=== PATIENT | female | born 1955 | race Caucasian/White ===

== ENCOUNTER → 2017-11-19 14:38 | Outpatient (CLI) | payer MEDICARE, MEDICAID, SELFPAY ==
--- NOTE | 2017-11-19 14:55 | RAD_ITS ---
STUDY: X-RAY CHEST REASON FOR EXAM: Female, 62 years old. Cough: TECHNIQUE: 2 view COMPARISON: None. FINDINGS: No acute findings in the lungs. The heart is normal. There are degenerative changes of the thoracic spine.. Normal visualized ribs, clavicles, and shoulders. There is no demonstrated abnormality of the visualized soft tissue structures of the upper abdomen. RAD/Chest PA and Lateral IMPRESSION: No acute findings in the lungs Electronically Signed: Ricky Goodwin MD at 3:24 EDT Tel , Service support ,
== END ==
PROVIDERS: Family Provider Family Medicine; PCP Family Medicine; Referring Provider Family Medicine; Visit Provider Family Medicine
DX: R05 Cough (principal)
CPT/HCPCS: 71046

== ENCOUNTER 2018-01-05 22:04 | Inpatient (IN) | payer MEDICARE, MEDICAID, SELFPAY ==
[2018-01-05 22:06] VITALS: BP 124/85; PULSE 104; RESP 18; TEMP 36.8; O2SAT 97; BMI 33.5
--- NOTE | 2018-01-05 22:07 | ED.RN ---
CALLED FOR EKG, PULLED OLD EKGS FOR
--- NOTE | 2018-01-05 22:16 | EKG12_ITS ---
Test Reason : CHEST PAIN Blood Pressure : / mmHG Vent. Rate : 092 BPM Atrial Rate : 092 BPM P-R Int : 176 ms QRS Dur : 098 ms QT Int : 384 ms P-R-T Axes : 053 -05 045 degrees QTc Int : 474 ms Normal sinus rhythm Low voltage QRS Borderline ECG Confirmed by TERRI WRIGHT, KATARINA ([id number]), editorial assistant LATRICE AMES ([id number] on 01/07/2018 9:20:27 AM Referred By: KEVIN Confirmed By:KATARINA MURRAY MD
--- NOTE | 2018-01-05 22:20 | RAD_ITS ---
STUDY: X-RAY CHEST REASON FOR EXAM: Female, 62 years old. Chest pain. TECHNIQUE: Portable chest. COMPARISON: 11/19/2017. FINDINGS: The lungs are clear and expanded. There is no demonstrated pleural abnormality. Normal size heart. Normal mediastinum and rayna. Normal visualized pulmonary arteries. Normal visualized aortic arch and descending thoracic aorta. There are degenerative changes of the right glenohumeral joint and distal clavicle consistent with remote trauma. Thoracic spondylosis is noted. Soft tissues are unremarkable. RAD/Chest 1 View (Portable) IMPRESSION: No acute process. Electronically Signed: Fátima Bucio MD at 23:20 EST Tel , Service support ,
[2018-01-05 22:27] VITALS: O2SAT 98
[2018-01-05 22:36] LABS: Absolute Lymphocyte Count 1.99 X10^3/ul (0.83-4.51); Absolute Neutrophil Count 9.2 X10^3/uL (2.0-7.7); Basophil# 0.02 X10^3/uL; Basophil% 0.2 % (0-1); Eosinophil# 0.21 X10^3/uL; Eosinophils% 1.8 % (0-5); Hemoglobin 12.6 g/dl (12.0-15.0); Lymphocyte # 1.99 X10^3/ul (4.0); Lymphocyte % 16.6 % (19-41); Mean Corp Hgb Conc 32.3 g/gl (32-36); Mean Corpuscular Hgb 28.5 pg (27.0-32.0); Mean Corpuscular Volume 88.2 fL (81-99); Mean Platelet Vol. 9.3 fl (6.2-12.0); Monocyte# 0.51 X10^3/uL; Monocyte% 4.3 % (0-10); Neutrophil # 9.22 X10^3/uL (2.7-7.7); Neutrophil % 76.9 % (47-70); Platelet Count 295 K/mm3 (150-450); RBC Distribution Width CV 12.5 % (11.6-14.6); RBC Distribution Width SD 40.3 fl (35.1-43.9); Red Blood Count 4.42 M/mm3 (4.2-5.4)
[2018-01-05 22:37] LABS: POSITIVE COUNT NO; POSITIVE DIFFERENTIAL NO; POSITIVE MORPHOLOGY NO
[2018-01-05 22:52] LABS: Anion Gap 9 (5-15); BUN 30 mg/dL (7-18); Calcium,Total 9.3 mg/dL (8.5-10.1); Chloride 104 mmol/L (98-107); EST Glomerular Filtration Rate 37 mL/min (>60); Est Glom Filt Rate - Afr Amer 45 mL/min (>60); Estimated Creatinine Clearance 32.72 ml/min; Glucose 201 mg/dL (74-106); Potassium 3.9 mmol/L (3.5-5.1); Sodium Level 138 mmol/L (136-145)
[2018-01-05] MEDS: Aspirin 81 MG TAB.CHEW 324 MG PO (22:52)
--- NOTE | 2018-01-05 22:53 | ED.RN ---
lab called with critical lab results. Troponin level 0.813. Dr. Lopez made aware
[2018-01-05] MEDS: 0.9% Normal Saline 1,000 ML 999 ML IV (22:57)
--- NOTE | 2018-01-05 23:00 | ED.RN ---
NITRO HELD AT THIS TIME D/T LOW BP. NS FLUID STARTED INFUSING AT THIS TIME. ANOTHER EKG OBTAINED. PHYSICIAN AT BEDSIDE
[2018-01-05 23:05] VITALS: BP 106/62; PULSE 94; RESP 23; O2SAT 98
[2018-01-05] MEDS: fentaNYL 100 MCG/2 ML Ampul 25 MCG IV (23:06)
[2018-01-05] MEDS: Enoxaparin 100 MG/ML Syringe 90 MG SC (23:17)
[2018-01-05] MEDS: Clopidogrel Bisulfate 300 MG Tablet PO (23:17)
--- NOTE | 2018-01-05 23:34 | ED.VISSUMM ---
- ER Visit Summary Date of Service: 01/05/18 Chief Complaint: Chest pain History of Present Illness: The patient is a 62 F who presents with chest pain. It began about 4 hours ago. She states that about noon she developed vertigo. She does have a prior history of vertigo. She felt dizzy and nauseated. She took Zofran and meclizine and fell asleep. She woke up at about 6:30 PM and had chest pressure. She rates this as 7 out of 10. She states it feels like someone is sitting on me. She reports nausea shortness of breath and mild diaphoresis. No fevers. She has had a recent chest infection. She complains of shortness of breath cough and occasional sputum. She has had 2 normal x-rays. She was however still started on antibiotics. No vomiting. No diarrhea. Physical Examination: Heart rate 104 vitals otherwise normal Moist mucous membranes Heart regular rhythm slightly tachycardic Lungs are clear without rales rhonchi wheezes Abdomen soft Symmetric palpable radial pulses Alert Skin warm and dry at the time of initial exam Test Results: EKG shows sinus rhythm at a rate of 92. There is slightly increased amplitude of T waves from prior EKG but did not have a morphology consistent with de bryant waves. I do not appreciate any ST segment changes. Repeat EKG shows some DE depression in lead II no other acute changes. No reciprocal changes. Chest x-ray shows no acute process. Labs notable for white blood cell count 12.0. Creatinine 1.50. Troponin 0 0.813. Emergency Department Course and Treatment: Patient was given aspirin. Sublingual nitroglycerin was ordered. However prior to administration patient developed diaphoresis and hypotension with a systolic blood pressure of about 90. We held on nitroglycerin. Repeat EKG as above. I spoke to Dr. Hayes. We also administered oral Plavix and subcutaneous Lovenox. Patient will be admitted to the ICU. She was advised to notify anyone of any new or worsening symptoms. Discussed with hospitalist and admitted. Treatment Plan: [] Disposition: Admit Impression: Acute coronary syndrome This note was generated with [employer] dictation software. It may contain incorrect words, spelling, and punctuation that were not noted in review of the chart prior to signing ED Disposition - Plan for ED Patient: Chief Complaint: Chest Pain Referrals: Doug Florence MD [Primary Care Provider] -
--- NOTE | 2018-01-05 23:37 | ED.DCSUM_ITS ---
- ER Visit Summary Date of Service: 01/05/18 Chief Complaint: Chest pain History of Present Illness: The patient is a 62 F who presents with chest pain. It began about 4 hours ago. She states that about noon she developed vertigo. She does have a prior history of vertigo. She felt dizzy and nauseated. She took Zofran and meclizine and fell asleep. She woke up at about 6:30 PM and had chest pressure. She rates this as 7 out of 10. She states it feels like someone is sitting on me. She reports nausea shortness of breath and mild diaphoresis. No fevers. She has had a recent chest infection. She complains of shortness of breath cough and occasional sputum. She has had 2 normal x- rays. She was however still started on antibiotics. No vomiting. No diarrhea. Physical Examination: Heart rate 104 vitals otherwise normal Moist mucous membranes Heart regular rhythm slightly tachycardic Lungs are clear without rales rhonchi wheezes Abdomen soft Symmetric palpable radial pulses Alert Skin warm and dry at the time of initial exam Test Results: EKG shows sinus rhythm at a rate of 92. There is slightly increased amplitude of T waves from prior EKG but did not have a morphology consistent with de bryant waves. I do not appreciate any ST segment changes. Repeat EKG shows some SD depression in lead II no other acute changes. No reciprocal changes. Chest x-ray shows no acute process. Labs notable for white blood cell count 12.0. Creatinine 1.50. Troponin 0 0.813. Emergency Department Course and Treatment: Patient was given aspirin. Sublingual nitroglycerin was ordered. However prior to administration patient developed diaphoresis and hypotension with a systolic blood pressure of about 90. We held on nitroglycerin. Repeat EKG as above. I spoke to Dr. Hayes. We also administered oral Plavix and subcutaneous Lovenox. Patient will be admitted to the ICU. She was advised to notify anyone of any new or worsening symptoms. Discussed with hospitalist and admitted. Treatment Plan: [] Disposition: Admit Impression: Acute coronary syndrome This note was generated with [employer] dictation software. It may contain incorrect words, spelling, and punctuation that were not noted in review of the chart prior to signing ED Disposition - Plan for ED Patient: Chief Complaint: Chest Pain Referrals: Doug Florence MD [Primary Care Provider] -
--- NOTE | 2018-01-05 23:39 | PCM.HP.STD ---
Problem List (1) ACS (acute coronary syndrome) Status: Acute (2) NSTEMI (non-ST elevated myocardial infarction) Status: Suspected (3) Diabetes mellitus, type II Status: Chronic Qualifiers: Diabetes mellitus rn long term care insulin use: without rn long term care use Diabetes mellitus complication status: with unspecified complications Qualified Code(s): E11.8 - Type 2 diabetes mellitus with unspecified complications (4) HTN (hypertension) Status: Chronic Qualifiers: Hypertension type: essential hypertension Qualified Code(s): I10 - Essential (primary) hypertension (5) HLD (hyperlipidemia) Status: Chronic Qualifiers: Hyperlipidemia type: unspecified Qualified Code(s): E78.5 - Hyperlipidemia, unspecified (6) Obesity (BMI 30.0-34.9) Status: Chronic History of Present Illness Date of Admission: 01/05/18 Chief Complaint: Chest pressure The patient is a 62 y/o F w/ PMHx: Diabetes mellitus type II, HTN, HLD Obesity, BPPV who presents to the [facility] ED on 01/05/18 with history of onset mild vertigo at noon, taking zofran and meclizine w/ nap following, awakening secondary to onset L sided chest pressure, described as someone sitting on her chest, constant since onset, rated 8/10 pain with no radiation with associated nausea, diaphoresis and dyspnea prompting ED transition. In the ED she noted chest discomfort at 6/10. In the ED work-up included T 98.3, heart rate 104, BP 03/07/1984 however patient did become hypotensive with systolic under 100 while in the emergency room and IV fluid bolus was administered, respiratory rate 18, 97% on room air, CBC with WC 12, hemoglobin 12.6, platelet 295 with left shift, BMP with BUN/creatinine 30/1.50, glucose 201, troponin 0.813, chest x-ray unremarkable, EKG initially with sinus rhythm with heart rate 92 with slight increase of T wave amplitude from prior with repeat EKG with some PA depression in lead II otherwise no acute findings and no reciprocal changes. In the ED patient administered normal saline, fentanyl, therapeutic Lovenox, Plavix load, aspirin 324 mg p.o. x1. Cardiology consulted and discussed patient status given concern for acute coronary syndrome and suspected NSTEMI. Past Medical History Past Medical History (Chronic Problems): Chronic Problems Diabetes mellitus, type II (Chronic) HTN (hypertension) (Chronic) HLD (hyperlipidemia) (Chronic) Obesity (BMI 30.0-34.9) (Chronic) Allergies codeine Allergy (Verified 01/05/18 22:05) Itching Home Medications: Ambulatory Orders Medication Instructions Recorded Oxycodone HCl/Acetaminophen 1 - 2 tablet PO Q6H PRN PRN 08/15/14 [Percocet 10-325 mg Tablet] Surgical History: - - Partial hysterectomy, tonsillectomy, right oophorectomy. Psychiatric History: No pertinent psych hx CARDIOLOGY TECH History: - - R oopherectomy s/p ovarian mass. Lives: Spouse/ Significant Other Smoking Status: Former smoker Tobacco Use: Non-smoker Alcohol: None Drugs: None - *Family History Maternal History Items: - - Patient denies any marked paternal or maternal family history including heart disease, diabetes, cancer. Paternal History Items: - - Patient denies any marked paternal or maternal family history including heart disease, diabetes, cancer. Review of Systems Constitutional: Reports: Malaise, Weakness, Fatigue. Denies: Chills, Fever, Weight Change HEENT: Denies: Head Aches, Sinus Congestion, Sinus Drainage Cardiovascular: Reports: Chest Pain, Chest Pressure, Heaviness, Light Headedness. Denies: Chest Tightness, Edema, Orthopnea, Palpitations, Syncope Respiratory: Reports: Shortness of Breath. Denies: Cough, Shortness of breath at rest, Shortness of breath upon exertion, Sputum production Gastrointestinal: Reports: Nausea. Denies: Abdominal Pain, Vomiting Genitourinary: Denies: Dysuria Musculoskeletal: Reports: Back Pain, Joint Pain. Denies: Joint Tenderness Skin: Denies: Rash, Wounds Neurological: Denies: Numbness, Tingling, Focal weakness Psychiatric: Denies: Anxiety, Depression, Homicidal Ideations, Suicidal Ideations Hematologic/ Lymphatic: Denies: Easy Bruising, Easy Bleeding VTE Information - Inpt Only VTE Present on Admission: No VTE Mechan Device Prophylaxis: SCD's VTE Pharm Prophylaxis ordered?: Yes Patient Problems: Active and Suspected Problems ACS (acute coronary syndrome) (Acute) NSTEMI (non-ST elevated myocardial infarction) (Suspected) Subjective: Seated upright in the ED bed, ongoing L chest pressure, diaphoretic currently. Objective: Physical Examination: General: awake, alert, oriented x 3 and cooperative, seated upright in the ED bed, uncomfortable appearing, diaphoretic. Skin: normal color, turgor, no icterus, cyanosis. HEENT: AT/NC, EOMI, PERRLA, mildly dry MM, no carotid bruits or JVD noted. Lungs: CTA bilaterally, moderate effort, mild decrease BL bases, no rales, ronchi or wheezing. Heart: Mildly tachycardic with regular rhythm; no gallop, rub audible. Abdomen: soft, obese, NTTP, ND, normal BS, no HSM. Extremities: no cyanosis, clubbing, or edema. Neurological: patient awake, alert, oriented x 3; cognitive function intact; pupils equally reactive to light and accomodation; cranial nerves II-XII grossly normal, moving all 4 extremities, no focal deficits, strength moderately to severely globally decreased secondary to acute presentation. Psychiatric: affect appears fatigued, flat, no acute evidence of depressive or anxiety feelings. - Physical Exam Vital Signs Temp Pulse Resp BP Pulse Ox 98.3 F 94 23 H 106/62 98 01/05/18 22:06 01/05/18 23:05 01/05/18 23:05 01/05/18 23:05 01/05/18 23:05 Oxygen Flow Rate (L/min) 2 Oxygen Delivery Method Nasal Cannula Weight: 195 lb 12.328 oz Body Mass Index (BMI) 33.5 Laboratory Tests Past 24 Hrs 01/05/18 01/05/18 22:24 22:24 WBC 12.0 H RBC 4.42 Hgb 12.6 Hct 39.0 MCV 88.2 MCH 28.5 MCHC 32.3 RDW 12.5 RDW Differential 40.3 Plt Count 295 MPV 9.3 Immature Gran % (Auto) 0.200 Neut % (Auto) 76.9 H Lymph % (Auto) 16.6 L Hamilton % (Auto) 4.3 Eos % (Auto) 1.8 Baso % (Auto) 0.2 Absolute Neuts (auto) 9.2 H Absolute Lymphs (auto) 1.99 Total Counted Not Reportable Sodium 138 Potassium 3.9 Chloride 104 Carbon Dioxide 25.0 Anion Gap 9 BUN 30 H Creatinine 1.50 H Estim Creat Clear Calc 32.72 Est GFR (MDRD) Af Amer 45 L Est GFR (MDRD) Non-Af 37 L BUN/Creatinine Ratio 20.0 Glucose 201 H Calcium 9.3 Troponin I 0.813 H* Assessment/Plan All Active Problems ACS (acute coronary syndrome) (Acute) The patient is a 62 y/o F w/ PMHx: Diabetes mellitus type II, HTN, HLD Obesity, BPPV who presents to the [facility] ED on 01/05/18 with history of onset mild vertigo at noon, taking zofran and meclizine w/ nap following, awakening secondary to onset L sided chest pressure, described as someone sitting on her chest, constant since onset, rated 8/10 pain with no radiation with associated nausea, diaphoresis and dyspnea prompting ED transition. (1) Chest Pain w/ Acute Coronary Syndrome, Suspected NSTEMI w/ Hypotensive Episode: ED work-up included T 98.3, heart rate 104, BP 03/07/1984 however patient did become hypotensive with systolic under 100 while in the emergency room and IV fluid bolus was administered, respiratory rate 18, 97% on room air, CBC with WC 12, hemoglobin 12.6, platelet 295 with left shift, BMP with BUN/creatinine 30/1.50, glucose 201, troponin 0.813, chest x-ray unremarkable, EKG initially with sinus rhythm with heart rate 92 with slight increase of T wave amplitude from prior with repeat EKG with some PA depression in lead II otherwise no acute findings and no reciprocal changes. Will admit to ICU given concerning presentation and per discussions w/ ED and Cardiology, maintain on a monitored bed, continue serial cardiac enzymes and EKGs. Obtain magnesium level upon admission. Continue therapeutic lovenox. Continue medical management w/ asa, add BB and ACEI/ARB once BP assured improved, add high dose statin w/ AM FLP. Cardiology consulted, would plan for cardiac catheterization. Maintain NPO after midnight. ASA, NG if BP improves, morphine if BP improves otherwise currently PRN fentanyl. ECHO ordered. (2) Diabetes mellitus type II: Will obtain hemoglobin A1c, will allow ADA diet until midnight then NPO status, accu checks w/ ISS. (3) Hypertension: Regimen current not listed, awaiting verification, will hold addition given hypotensive episode in the emergency room, continue IV fluids, add regimen including beta-chacha therapy and LEYDI inhibitor versus ARB once appropriate. (4) Hyperlipidemia: Not on regimen, we will add high-dose statin, FLP in AM. (5) Obesity: Weight loss and lifestyle changes encouraged, nutrition consulted. (6) BPPV: If onset will add patient PRN meclizine, PRN zofran. (7) DVT Prophylaxis: SCDs, therapeutic lovenox. Code Visit Inpatient E&M: 97899 Init Hosp L3
--- NOTE | 2018-01-05 23:46 | HP.PCM_ITS ---
Problem List (1) ACS (acute coronary syndrome) Status: Acute (2) NSTEMI (non-ST elevated myocardial infarction) Status: Suspected (3) Diabetes mellitus, type II Status: Chronic Qualifiers: Diabetes mellitus keno terminal operator insulin use: without keno terminal operator use Diabetes mellitus complication status: with unspecified complications Qualified Code(s): E11.8 - Type 2 diabetes mellitus with unspecified complications (4) HTN (hypertension) Status: Chronic Qualifiers: Hypertension type: essential hypertension Qualified Code(s): I10 - Essential (primary) hypertension (5) HLD (hyperlipidemia) Status: Chronic Qualifiers: Hyperlipidemia type: unspecified Qualified Code(s): E78.5 - Hyperlipidemia, unspecified (6) Obesity (BMI 30.0-34.9) Status: Chronic History of Present Illness Date of Admission: 01/05/18 Chief Complaint: Chest pressure The patient is a 62 y/o F w/ PMHx: Diabetes mellitus type II, HTN, HLD Obesity, BPPV who presents to the [facility] ED on 01/05/18 with history of onset mild vertigo at noon, taking zofran and meclizine w/ nap following, awakening secondary to onset L sided chest pressure, described as someone sitting on her chest, constant since onset, rated 8/10 pain with no radiation with associated nausea, diaphoresis and dyspnea prompting ED transition. In the ED she noted chest discomfort at 6/10. In the ED work-up included T 98.3, heart rate 104, BP 03/07/1984 however patient did become hypotensive with systolic under 100 while in the emergency room and IV fluid bolus was administered, respiratory rate 18, 97% on room air, CBC with WC 12, hemoglobin 12.6, platelet 295 with left shift, BMP with BUN/creatinine 30/1.50, glucose 201, troponin 0.813, chest x-ray unremarkable, EKG initially with sinus rhythm with heart rate 92 with slight increase of T wave amplitude from prior with repeat EKG with some MA depression in lead II otherwise no acute findings and no reciprocal changes. In the ED patient administered normal saline, fentanyl, therapeutic Lovenox, Plavix load, aspirin 324 mg p.o. x1. Cardiology consulted and discussed patient status given concern for acute coronary syndrome and suspected NSTEMI. Past Medical History Past Medical History (Chronic Problems): Chronic Problems Diabetes mellitus, type II (Chronic) HTN (hypertension) (Chronic) HLD (hyperlipidemia) (Chronic) Obesity (BMI 30.0-34.9) (Chronic) Allergies codeine Allergy (Verified 01/05/18 22:05) Itching Home Medications: Ambulatory Orders Medication Instructions Recorded Oxycodone HCl/Acetaminophen 1 - 2 tablet PO Q6H PRN PRN 08/15/14 [Percocet 10-325 mg Tablet] Surgical History: - - Partial hysterectomy, tonsillectomy, right oophorectomy. Psychiatric History: No pertinent psych hx [employer] CRIME PREVENTION History: - - R oopherectomy s/p ovarian mass. Lives: Spouse/ Significant Other Smoking Status: Former smoker Tobacco Use: Non-smoker Alcohol: None Drugs: None - *Family History Maternal History Items: - - Patient denies any marked paternal or maternal family history including heart disease, diabetes, cancer. Paternal History Items: - - Patient denies any marked paternal or maternal family history including heart disease, diabetes, cancer. Review of Systems Constitutional: Reports: Malaise, Weakness, Fatigue. Denies: Chills, Fever, Weight Change HEENT: Denies: Head Aches, Sinus Congestion, Sinus Drainage Cardiovascular: Reports: Chest Pain, Chest Pressure, Heaviness, Light Headedness. Denies: Chest Tightness, Edema, Orthopnea, Palpitations, Syncope Respiratory: Reports: Shortness of Breath. Denies: Cough, Shortness of breath at rest, Shortness of breath upon exertion, Sputum production Gastrointestinal: Reports: Nausea. Denies: Abdominal Pain, Vomiting Genitourinary: Denies: Dysuria Musculoskeletal: Reports: Back Pain, Joint Pain. Denies: Joint Tenderness Skin: Denies: Rash, Wounds Neurological: Denies: Numbness, Tingling, Focal weakness Psychiatric: Denies: Anxiety, Depression, Homicidal Ideations, Suicidal Ideations Hematologic/ Lymphatic: Denies: Easy Bruising, Easy Bleeding VTE Information - Inpt Only VTE Present on Admission: No VTE Mechan Device Prophylaxis: SCD's VTE Pharm Prophylaxis ordered?: Yes Patient Problems: Active and Suspected Problems ACS (acute coronary syndrome) (Acute) NSTEMI (non-ST elevated myocardial infarction) (Suspected) Subjective: Seated upright in the ED bed, ongoing L chest pressure, diaphoretic currently. Objective: Physical Examination: General: awake, alert, oriented x 3 and cooperative, seated upright in the ED bed, uncomfortable appearing, diaphoretic. Skin: normal color, turgor, no icterus, cyanosis. HEENT: AT/NC, EOMI, PERRLA, mildly dry MM, no carotid bruits or JVD noted. Lungs: CTA bilaterally, moderate effort, mild decrease BL bases, no rales, ronchi or wheezing. Heart: Mildly tachycardic with regular rhythm; no gallop, rub audible. Abdomen: soft, obese, NTTP, ND, normal BS, no HSM. Extremities: no cyanosis, clubbing, or edema. Neurological: patient awake, alert, oriented x 3; cognitive function intact; pupils equally reactive to light and accomodation; cranial nerves II-XII grossly normal, moving all 4 extremities, no focal deficits, strength moderately to severely globally decreased secondary to acute presentation. Psychiatric: affect appears fatigued, flat, no acute evidence of depressive or anxiety feelings. - Physical Exam Vital Signs Temp Pulse Resp BP Pulse Ox 98.3 F 94 23 H 106/62 98 01/05/18 22:06 01/05/18 23:05 01/05/18 23:05 01/05/18 23:05 01/05/18 23:05 Oxygen Flow Rate (L/min) 2 Oxygen Delivery Method Nasal Cannula Weight: 195 lb 12.328 oz Body Mass Index (BMI) 33.5 Laboratory Tests Past 24 Hrs 01/05/18 01/05/18 22:24 22:24 WBC 12.0 H RBC 4.42 Hgb 12.6 Hct 39.0 MCV 88.2 MCH 28.5 MCHC 32.3 RDW 12.5 RDW Differential 40.3 Plt Count 295 MPV 9.3 Immature Gran % (Auto) 0.200 Neut % (Auto) 76.9 H Lymph % (Auto) 16.6 L [place] % (Auto) 4.3 Eos % (Auto) 1.8 Baso % (Auto) 0.2 Absolute Neuts (auto) 9.2 H Absolute Lymphs (auto) 1.99 Total Counted Not Reportable Sodium 138 Potassium 3.9 Chloride 104 Carbon Dioxide 25.0 Anion Gap 9 BUN 30 H Creatinine 1.50 H Estim Creat Clear Calc 32.72 Est GFR (MDRD) Af Amer 45 L Est GFR (MDRD) Non-Af 37 L BUN/Creatinine Ratio 20.0 Glucose 201 H Calcium 9.3 Troponin I 0.813 H* Assessment/Plan All Active Problems ACS (acute coronary syndrome) (Acute) The patient is a 62 y/o F w/ PMHx: Diabetes mellitus type II, HTN, HLD Obesity, BPPV who presents to the [facility] ED on 01/05/18 with history of onset mild vertigo at noon, taking zofran and meclizine w/ nap following, awakening secondary to onset L sided chest pressure, described as someone sitting on her chest, constant since onset, rated 8/10 pain with no radiation with associated nausea, diaphoresis and dyspnea prompting ED transition. (1) Chest Pain w/ Acute Coronary Syndrome, Suspected NSTEMI w/ Hypotensive Episode: ED work-up included T 98.3, heart rate 104, BP 03/07/1984 however patient did become hypotensive with systolic under 100 while in the emergency room and IV fluid bolus was administered, respiratory rate 18, 97% on room air, CBC with WC 12, hemoglobin 12.6, platelet 295 with left shift, BMP with BUN/creatinine 30/1.50, glucose 201, troponin 0.813, chest x-ray unremarkable, EKG initially with sinus rhythm with heart rate 92 with slight increase of T wave amplitude from prior with repeat EKG with some MA depression in lead II otherwise no acute findings and no reciprocal changes. Will admit to ICU given concerning presentation and per discussions w/ ED and Cardiology, maintain on a monitored bed, continue serial cardiac enzymes and EKGs. Obtain magnesium level upon admission. Continue therapeutic lovenox. Continue medical management w/ asa, add BB and ACEI/ARB once BP assured improved, add high dose statin w/ AM FLP. Cardiology consulted, would plan for cardiac catheterization. Maintain NPO after midnight. ASA, NG if BP improves, morphine if BP improves otherwise currently PRN fentanyl. ECHO ordered. (2) Diabetes mellitus type II: Will obtain hemoglobin A1c, will allow ADA diet until midnight then NPO status, accu checks w/ ISS. (3) Hypertension: Regimen current not listed, awaiting verification, will hold addition given hypotensive episode in the emergency room, continue IV fluids, add regimen including beta-chacha therapy and LEYDI inhibitor versus ARB once appropriate. (4) Hyperlipidemia: Not on regimen, we will add high-dose statin, FLP in AM. (5) Obesity: Weight loss and lifestyle changes encouraged, nutrition consulted. (6) BPPV: If onset will add patient PRN meclizine, PRN zofran. (7) DVT Prophylaxis: SCDs, therapeutic lovenox. Code Visit Inpatient E&M: 81650 Init Hosp L3
[2018-01-06] VITALS (39 sets, daily range): BP systolic 75–132; BP diastolic 30–75; PULSE 70–92; RESP 14–26; TEMP 36.2–37.3; O2SAT 92–100; BMI 34.9
--- NOTE | 2018-01-06 00:13 | ED.RN ---
PT BP KEEPS DROPPING AND 1ST LITER OF NS FINISHED INFUSING. PT'S PAIN IS 5/10. PT STATS FEELING BETTER. ANOTHER EKG IS BEING DONE AND ANOTHER LITER OF NS STARTED. OBSERVING PT AT THIS TIME TO SEE IF BP IMPROVES.
[2018-01-06] MEDS: 0.9% Normal Saline 1,000 ML 999 ML IV (00:17)
--- NOTE | 2018-01-06 03:07 | EKG12_ITS ---
Test Reason : FU CP Blood Pressure : / mmHG Vent. Rate : 081 BPM Atrial Rate : 081 BPM P-R Int : 190 ms QRS Dur : 092 ms QT Int : 418 ms P-R-T Axes : 044 -17 041 degrees QTc Int : 485 ms Normal sinus rhythm Low voltage QRS Cannot rule out Anterior infarct , age undetermined Abnormal ECG Confirmed by TERRI WRIGHT, KATARINA ([id number]), photo editor LATRICE AMES ([id number]) on 01/07/2018 2:20:15 PM Referred By: DANA Confirmed By:KATARINA MURRAY MD
--- NOTE | 2018-01-06 03:07 | ECHOCS_ITS ---
Reason For Study: CHEST PAIN Procedure This was a 2D Doppler, Color Flow transthoracic echocardiogram. The study was technically difficult. Contrast injection was performed. Exam performed portable in patient room. Left Ventricle Normal LV size. The estimated ejection fraction is 40 %. Moderate segmental systolic dysfunction (see wall motion). Mid-Anterior : Severely Hypokinetic. [place] : Severely Hypokinetic. Inferior [place] : Hypokinetic. Right Ventricle Normal RV size. Normal systolic function. Atria Normal left atrium. Normal right atrium. Mitral Valve Normal mitral valve. Tricuspid Valve Normal tricuspid valve. Aortic Valve Normal aortic valve. Trisinus/trileaflet aortic valve. Pulmonic Valve Normal pulmonic valve. Great Vessels Normal aortic root. The pulmonary artery is normal size. Normal inferior vena cava. Pericardium/Pleural No pericardial effusion. Medication Diluted definity 4.0ml given slow IV push to enhance endocardial definition. MMode/2D Measurements & Calculations LVIDd: 4.1 cm IVSd: 1.1 cm Ao root diam: 3.1 cm LVIDs: 2.7 cm LVPWd: 0.97 cm RVDd: 2.9 cm FS: 34.9 % LAV(MOD-bp): 43.7 ml LA A4 area: 14.5 cm2 LA dimension(2D): 3.9 cm LAV(MOD-bp) Indexed: 22.6 ml/m2 LAV(MOD-sp2): 43.8 ml LAV(MOD-sp4): 41.9 ml RA A4 area: 11.6 cm2 Time Measurements MV dec time: 0.21 sec Doppler Measurements & Calculations MV E max moustapha: 107.5 cm/sec Lat Peak E' Moustapha: 6.4 cm/sec Med Peak E' Moustapha: 6.1 cm/sec MV A max moustapha: 107.3 cm/sec E/E' lat: 16.8 E/E' med: 17.7 MV E/A: 1.0 Ao V2 max: 133.9 cm/sec LV V1 max: 78.4 cm/sec PA V2 max: 86.5 cm/sec Ao max P.2 mmHg LV V1 max P.5 mmHg Interpretation Summary Normal LV size. The estimated ejection fraction is 40 %. Moderate segmental systolic dysfunction (see wall motion). Consistent with takotsubo Structurally normal valves. Ordering Physician: Kanwal Aguilar Referring Physician: Doug Florence Performed By: Martine George, FELICAI, RVT
--- NOTE | 2018-01-06 03:07 | EKG12_ITS ---
Test Reason : AM EKG Blood Pressure : / mmHG Vent. Rate : 092 BPM Atrial Rate : 092 BPM P-R Int : 156 ms QRS Dur : 094 ms QT Int : 422 ms P-R-T Axes : 043 -17 128 degrees QTc Int : 521 ms Normal sinus rhythm Low voltage QRS T wave abnormality, consider anterolateral ischemia Prolonged QT Abnormal ECG When compared with ECG of 06-JAN-2018 04:37, MANUAL COMPARISON REQUIRED, DATA IS UNCONFIRMED Confirmed by TERRI WRIGHT, KATARINA ([id number]), supervising editor news reel LATRICE AMES ([id number]) on 01/08/2018 4:10:19 PM Referred By: NE Confirmed By:KATARINA MURRAY MD
[2018-01-06 03:23] LABS: Magnesium 1.8 mg/dL (1.6-2.6)
[2018-01-06] MEDS: 0.9% Normal Saline 1,000 ML 100 ML IV ×2 (04:15→22:22)
[2018-01-06 05:00] LABS: Hematocrit 31.7 % (37-47); Mean Corp Hgb Conc 31.5 g/gl (32-36); Mean Corpuscular Hgb 28.6 pg (27.0-32.0); Mean Corpuscular Volume 90.6 fL (81-99); Mean Platelet Vol. 9.7 fl (6.2-12.0); Platelet Count 256 K/mm3 (150-450); RBC Distribution Width CV 12.4 % (11.6-14.6); RBC Distribution Width SD 39.8 fl (35.1-43.9)
[2018-01-06 05:06] LABS: Scan Indicated on CBC? Y/N NO
[2018-01-06 05:20] LABS: Anion Gap 8 (5-15); BUN 26 mg/dL (7-18); BUN/Creat Ratio 20.8 RATIO (10-20); Calcium,Total 8.3 mg/dL (8.5-10.1); Chloride 110 mmol/L (98-107); Cholesterol 115 mg/dL (200); Creatinine, Serum 1.25 mg/dL (0.55-1.02); EST Glomerular Filtration Rate 46 mL/min (>60); Est Glom Filt Rate - Afr Amer 56 mL/min (>60); Estimated Creatinine Clearance 39.26 ml/min; Glucose 80 mg/dL (74-106); High Density Lipoprotein 35 mg/dL; Potassium 3.9 mmol/L (3.5-5.1); Sodium Level 143 mmol/L (136-145); Triglycerides 141 mg/dL; Very Low Density Lipoprotein 28 mg/dL (5-40)
--- NOTE | 2018-01-06 05:55 | EKG12_ITS ---
Test Reason : CP F/U Blood Pressure : / mmHG Vent. Rate : 088 BPM Atrial Rate : 088 BPM P-R Int : 182 ms QRS Dur : 094 ms QT Int : 402 ms P-R-T Axes : 044 -20 040 degrees QTc Int : 486 ms Normal sinus rhythm Low voltage QRS Cannot rule out Anterior infarct , age undetermined Abnormal ECG Confirmed by TERRI WRIGHT, KATARINA ([id number]), dictionary editor LATRICE AMES ([id number]) on 01/07/2018 2:20:33 PM Referred By: DANA Confirmed By:KATARINA MURRAY MD
[2018-01-06 06:10] LABS: M R Staph aureus DNA By PCR Negative (Negative); Probe Check PASS; Specimen Processing Control PASS
--- NOTE | 2018-01-06 07:28 | PCM.PN.HOSP ---
Patient Problems: Active and Suspected Problems ACS (acute coronary syndrome) (Acute) NSTEMI (non-ST elevated myocardial infarction) (Suspected) Subjective: Patient is a 62-year-old lady with past medical history significant for hypertension, diabetes mellitus type 2, dyslipidemia who presented with chest pain involving the left upper chest. Prior to that patient had experienced pleuritic chest pain and had been treated for possible pneumonia by PCP. Patient upon presentation to the emergency department had elevated troponin and assessment of acute non-STEMI made admitted to the intensive care unit because patient was hypotensive upon presentation. Objective: GENERAL: cooperative HEENT: Atraumatic; moist oral mucosa EYES; Anicteric, Normal Conjunctiva NECK; supple, normal thyroid, no distended JVD. RESPIRATORY: Diminished to auscultation bilaterally, CARDIOVASCULAR: Regular S1 S2, no audible murmurs GI: soft, non-tender, normoactive bowel sounds, : No Renal angle tenderness; EXTREMITIES: No edema, no clubbing, no cyanosis. MUSCULOSKELETAL: No Joint Tenderness; no muscle waisting NEURO: Awake; no lateralizing signs. SKIN: No Rash PSYCH; Normal affect Vitals/I&O's: Vital Signs Temp Pulse Resp BP Pulse Ox 98.4 F 80 18 94/65 100 01/06/18 05:00 01/06/18 06:00 01/06/18 06:00 01/06/18 06:00 01/06/18 06:30 Oxygen Flow Rate (L/min) 2 Oxygen Delivery Method Nasal Cannula Weight: 92.3 kg Body Mass Index (BMI) 34.9 Intake and Output for Last 24 Hours 01/04/18 01/05/18 01/06/18 23:59 23:59 23:59 Intake Total 2786 / 2786 Output Total 200 / 200 Balance 2586 / 2586 Laboratory Results 01/05/18 22:24: WBC 12.0 H, RBC 4.42, Hgb 12.6, Hct 39.0, MCV 88.2, MCH 28.5, MCHC 32.3, RDW 12.5, RDW Differential 40.3, Plt Count 295, MPV 9.3, Immature Gran % (Auto) 0.200, Neut % (Auto) 76.9 H, Lymph % (Auto) 16.6 L, [place] % (Auto) 4.3, Eos % (Auto) 1.8, Baso % (Auto) 0.2, Absolute Neuts (auto) 9.2 H, Absolute Lymphs (auto) 1.99, Total Counted Not Reportable 01/05/18 22:24: Sodium 138, Potassium 3.9, Chloride 104, Carbon Dioxide 25.0, Anion Gap 9, BUN 30 H, Creatinine 1.50 H, Estim Creat Clear Calc 32.72, Est GFR (MDRD) Af Amer 45 L, Est GFR (MDRD) Non-Af 37 L, BUN/Creatinine Ratio 20.0, Glucose 201 H, Calcium 9.3, Troponin I 0.813 H* 01/05/18 22:24: Hemoglobin A1c Pending 01/06/18 01:38: Troponin I 1.020 H* 01/06/18 01:38: Magnesium 1.8 01/06/18 04:40: WBC 11.0, RBC 3.50 L, Hgb 10.0 L, Hct 31.7 L, MCV 90.6, MCH 28.6, MCHC 31.5 L, RDW 12.4, RDW Differential 39.8, Plt Count 256, MPV 9.7 01/06/18 04:40: Sodium 143, Potassium 3.9, Chloride 110 H, Carbon Dioxide 25.0, Anion Gap 8, BUN 26 H, Creatinine 1.25 H, Estim Creat Clear Calc 39.26, Est GFR (MDRD) Af Amer 56 L, Est GFR (MDRD) Non-Af 46 L, BUN/Creatinine Ratio 20.8 H, Glucose 80, Calcium 8.3 L, Triglycerides 141, Cholesterol 115, LDL Cholesterol 52, VLDL Cholesterol 28, HDL Cholesterol 35 L 01/06/18 04:40: MRSA (PCR) Negative 01/06/18 04:40: Troponin I 0.784 H* Current Medications Acetaminophen (Tylenol) 650 mg PO Q6H PRN PRN PRN Reason: Non-cardiac pain (mod-severe) Al Hydroxide/Mg Hydroxide (Mylanta Ii) 30 ml PO Q6H PRN PRN PRN Reason: Gastric burning Aspirin (Ecotrin) 81 mg PO DAILY@0800 [facility] Atorvastatin Calcium (Lipitor) 80 mg PO QHS [facility] Enoxaparin Sodium (Lovenox) 90 mg 1 mg/kg (90 mg) SC Q12 [facility] Fentanyl Citrate (Sublimaze (100mcg Ampule)) 25 mcg IV Q4H PRN PRN PRN Reason: mod to severe pain w/ SBP<100 Hydralazine HCl (Apresoline Iv) 10 mg IV Q4H PRN PRN PRN Reason: SBP > 160 Sodium Chloride () 1,000 mls @ 125 mls/hr IV .Q8H [facility] Insulin Human Lispro (Humalog Kwikpen (Bkc)) 0 unit SC ACHS [facility]I; Protocol Magnesium Hydroxide (Milk Of Magnesia) 30 ml PO DAILY PRN PRN PRN Reason: Constipation Morphine Sulfate () 1 - 2 mg IV Q4H PRN PRN PRN Reason: PAIN Nitroglycerin (Nitrostat) 0.4 mg SUBLINGUAL Q5M PRN PRN Reason: CHEST PAIN Ondansetron HCl (Zofran) 4 mg IV Q8H PRN PRN PRN Reason: NAUSEA/VOMITING Oxycodone HCl (Oxyir) 5 - 10 mg PO Q4H PRN PRN PRN Reason: SEVERE PAIN (6-10) Promethazine HCl (Phenergan) 12.5 mg IV Q6H PRN PRN PRN Reason: NAUSEA/VOMITING Sodium Chloride () 5 - 30 ml IV UD PRN PRN Reason: SALINE FLUSH Medical Necessity - Tobacco Use Smoking Status: Former smoker Tobacco Use: Non-smoker Assessment/Plan All Active Problems ACS (acute coronary syndrome) (Acute) Patient is a 62-year-old lady with past medical history significant for hypertension, diabetes mellitus type 2, dyslipidemia who presented with chest pain involving the left upper chest. Prior to that patient had experienced pleuritic chest pain and had been treated for possible pneumonia by PCP. Patient upon presentation to the emergency department had elevated troponin and assessment of acute non-STEMI made admitted to the intensive care unit because patient was hypotensive upon presentation. 1. Acute NSTEMI patient has been admitted to the intensive care unit being managed per protocol consultation placed to cardiology patient seen by Dr. Hayes with plans for patient undergo left heart catheterization on 01/07/2018. Given the pleuritic nature of patient's chest pain ordered a d-dimer if positive plan will be to obtain CTA of the chest to rule out pulmonary embolism 2. Diabetes mellitus type II: Controlled patient's oral 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s held. Placed on Accu-Cheks a.c. and at bedtime and covered with sliding scale insulin 3. Hypertension-blood pressure controlled, home medications continued with dose adjustment as needed 4. Dyslipidemia-patient is on statin therapy, continued at home dose 5. Obesity with BMI of 34.9 lifestyle modification including weight loss advised 6. BPPV patient is on meclizine and Zofran as needed 7. DVT prophylaxis SC Lovenox 8. Renal failure chronicity unknown creatinine was 1.5 on admission on IV fluid kidney function appears to be improving Active Medications Acetaminophen (Tylenol) 650 mg PO Q6H PRN PRN PRN Reason: Non-cardiac pain (mod-severe) Al Hydroxide/Mg Hydroxide (Mylanta Ii) 30 ml PO Q6H PRN PRN PRN Reason: Gastric burning Aspirin (Ecotrin) 81 mg PO DAILY@0800 [facility] Atorvastatin Calcium (Lipitor) 80 mg PO QHS [facility] Enoxaparin Sodium (Lovenox) 90 mg 1 mg/kg (90 mg) SC Q12 [facility] Fentanyl Citrate (Sublimaze (100mcg Ampule)) 25 mcg IV Q4H PRN PRN PRN Reason: mod to severe pain w/ SBP<100 Hydralazine HCl (Apresoline Iv) 10 mg IV Q4H PRN PRN PRN Reason: SBP > 160 Sodium Chloride () 1,000 mls @ 125 mls/hr IV .Q8H [facility] Insulin Human Lispro (Humalog Kwikpen (Bkc)) 0 unit SC ACHS REI; Protocol Magnesium Hydroxide (Milk Of Magnesia) 30 ml PO DAILY PRN PRN PRN Reason: Constipation Morphine Sulfate () 1 - 2 mg IV Q4H PRN PRN PRN Reason: PAIN Nitroglycerin (Nitrostat) 0.4 mg SUBLINGUAL Q5M PRN PRN Reason: CHEST PAIN Ondansetron HCl (Zofran) 4 mg IV Q8H PRN PRN PRN Reason: NAUSEA/VOMITING Oxycodone HCl (Oxyir) 5 - 10 mg PO Q4H PRN PRN PRN Reason: SEVERE PAIN (6-10/10) Promethazine HCl (Phenergan) 12.5 mg IV Q6H PRN PRN PRN Reason: NAUSEA/VOMITING Sodium Chloride () 5 - 30 ml IV UD PRN PRN Reason: SALINE FLUSH Code Visit Inpatient E&M: 10890 Subs Hosp L3
[2018-01-06 07:59] LABS: Hemoglobin A1c 7.3 % (4.2-6.3)
--- NOTE | 2018-01-06 08:14 | PCM.CONS.C ---
Reason for Consult Date of Consultation: 01/06/18 Reason for Consultation: Chest discomfort abnormal cardiac enzymes History of Present Illness: The patient is a 62 year old F past medical history of hypertension who presented to the emergency room yesterday. She had developed some dizziness and took some Zofran and meclizine and then went to bed. She says that later in the night she felt like an uncomfortable situation with someone sitting on her chest. She presented to the emergency room and she was noted to have an abnormal EKG but not meeting the criteria for an ST elevation myocardial infarction after discussing with me. She was given sublingual nitroglycerin became hypotensive and required IV fluid resuscitation. Cardiac troponin enzymes were noted to be abnormal. Patient was further transferred to the ICU after had been administered clopidogrel as well as Lovenox. This morning is not having any discomfort is still mildly hypotensive. [] Past Medical History Allergies/Adverse Reactions: Allergies codeine Allergy (Verified 01/05/18 22:05) Itching Home Medications: Ambulatory Orders Medication Instructions Recorded Oxycodone HCl/Acetaminophen 1 - 2 tablet PO Q6H PRN PRN 08/15/14 [Percocet 10-325 mg Tablet] Past Medical History (Chronic Problems): Chronic Problems Diabetes mellitus, type II (Chronic) HTN (hypertension) (Chronic) HLD (hyperlipidemia) (Chronic) Obesity (BMI 30.0-34.9) (Chronic) Surgical History: - - Partial hysterectomy, tonsillectomy, right oophorectomy. 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 - *Family History Maternal History Items: - - Patient denies any marked paternal or maternal family history including heart disease, diabetes, cancer. Paternal History Items: - - Patient denies any marked paternal or maternal family history including heart disease, diabetes, cancer. Lives: Spouse/ Significant Other Smoking Status: Former smoker Tobacco Use: Non-smoker Alcohol: None Drugs: None Review of Systems - Review of Systems General: Denies: Fever, Night Sweats, Fatigue HEENT: Denies: Vision Change Cardiovascular: Reports: Chest Discomfort, Chest Discomfort at Rest, Chest Heaviness, Dizziness. Denies: Shortness of Breath, Orthopnea, PND, Peripheral Edema, Palpitations, Lightheadedness, Near Syncope, Syncope Respiratory: Denies: Cough, Sputum Production, Hemoptysis Gastrointestinal: Denies: Indigestion, Hematemesis, Hematochezia, Melena Genitourinary: Denies: Dysuria, Hematuria Muscoloskeletal: Denies: Myalgias Skin: Denies: Rash Neurological: Reports: Dizziness Psychiatric: Denies: Anxiety Endocrine: Denies: Unexplained Weight Loss Hematologic/ Lymphatic: Denies: Anemia Subjectve: Pleasant lady in no apparent distress Objective: Vital Signs Temp Pulse Resp BP Pulse Ox 97.7 F L 71 19 H 93/51 L 100 01/06/18 08:00 01/06/18 08:00 01/06/18 08:00 01/06/18 08:00 01/06/18 08:00 Oxygen Flow Rate (L/min) 2 Oxygen Delivery Method Room Air Weight: 203 lb 7.787 oz Body Mass Index (BMI) 34.9 Intake and Output for Last 24 Hours 01/04/18 01/05/18 01/06/18 23:59 23:59 23:59 Intake Total 2786 / 2786 Output Total 200 / 200 Balance 2586 / 2586 General: Awake, Alert, Oriented x 3 HEENT: PERRL, EOMI, Sclera Non Icteric Neck: Supple, Good ROM, No Lymph Node Enlargement Lungs: Clear to auscultation Cardiovascular: Regular Rhythm, Normal S1, Normal S2, No Murmurs, No Rubs, No Gallops Vascular: No Carotid Bruits, Normal Femoral Pulses, Normal Radial Pulses, Normal Dorsalis Pedal Pulse, Normal Posterior Tibial Pulses Abdomen: Bowel Sounds Present, Soft, Non Tender, No HSM, No Organomegaly Extremities: No Cyanosis, No Clubbing, No edema Musculoskeletal: No Erythema Skin: No Rashes Lymphatic: No Lymph Node Enlargement Neurological: No Focal Motor or Sensory Deficit Psych/Mental Status: Appropriate 01/05/18 22:24: WBC 12.0 H, RBC 4.42, Hgb 12.6, Hct 39.0, MCV 88.2, MCH 28.5, MCHC 32.3, RDW 12.5, RDW Differential 40.3, Plt Count 295, MPV 9.3, Immature Gran % (Auto) 0.200, Neut % (Auto) 76.9 H, Lymph % (Auto) 16.6 L, [place] % (Auto) 4.3, Eos % (Auto) 1.8, Baso % (Auto) 0.2, Absolute Neuts (auto) 9.2 H, Total Counted Not Reportable 01/05/18 22:24: Sodium 138, Potassium 3.9, Chloride 104, Carbon Dioxide 25.0, Anion Gap 9, BUN 30 H, Creatinine 1.50 H, Est GFR (MDRD) Af Amer 45 L, Est GFR (MDRD) Non-Af 37 L, BUN/Creatinine Ratio 20.0, Glucose 201 H, Calcium 9.3, Troponin I 0.813 H* 01/05/18 22:24: Hemoglobin A1c 7.3 H 01/06/18 01:38: Troponin I 1.020 H* 01/06/18 01:38: Magnesium 1.8 01/06/18 04:40: WBC 11.0, RBC 3.50 L, Hgb 10.0 L, Hct 31.7 L, MCV 90.6, MCH 28.6, MCHC 31.5 L, RDW 12.4, RDW Differential 39.8, Plt Count 256, MPV 9.7 01/06/18 04:40: Sodium 143, Potassium 3.9, Chloride 110 H, Carbon Dioxide 25.0, Anion Gap 8, BUN 26 H, Creatinine 1.25 H, Est GFR (MDRD) Af Amer 56 L, Est GFR (MDRD) Non-Af 46 L, BUN/Creatinine Ratio 20.8 H, Glucose 80, Calcium 8.3 L, Triglycerides 141, Cholesterol 115, LDL Cholesterol 52, VLDL Cholesterol 28, HDL Cholesterol 35 L 01/06/18 04:40: Troponin I 0.784 H* 01/06/18 07:40: D-Dimer Quant (PE/DVT) Cancelled Rhythm: EKG: Normal sinus rhythm with poor R wave progression ECHO: Bedside echocardiogram performed demonstrates ejection fraction of approximately 40-45%. There is distal anterior and apical hypokinesis present. No significant regurgitant or stenotic jets. Assessment/Plan 1. Non-ST elevation myocardial infarction Patient presents with chest discomfort and is noted to have a non-ST elevation myocardial infarction. Patient was also noted to be hypotensive. Patient started on aspirin and clopidogrel Also continue on Lovenox Bedside echocardiogram demonstrated mildly reduced left ventricular systolic function with wall motion abnormality involving the distal anterior wall and apex Will treat with supportive IV fluids Intensity statin We will schedule cardiac catheterization in a.m. The above has been discussed with the patient the risk benefits and alternatives who understands and agrees to proceed. 2. Hypotension Etiology was not entirely clear however with echocardiogram it demonstrates that her ejection fraction is not significantly reduced We will therefore treat with supportive intravenous fluids No need for urgent cardiac catheterization at this time or additional pressor agents Above discussed with patient and nurses. Thank you for allowing me to participate in the care of your patient. Please don't hesitate to call if any issues arise
--- NOTE | 2018-01-06 08:19 | CON.PCM_ITS ---
Reason for Consult Date of Consultation: 01/06/18 Reason for Consultation: Chest discomfort abnormal cardiac enzymes History of Present Illness: The patient is a 62 year old F past medical history of hypertension who presented to the emergency room yesterday. She had developed some dizziness and took some Zofran and meclizine and then went to bed. She says that later in the night she felt like an uncomfortable situation with someone sitting on her chest. She presented to the emergency room and she was noted to have an abnormal EKG but not meeting the criteria for an ST elevation myocardial infarction after discussing with me. She was given sublingual nitroglycerin became hypotensive and required IV fluid resuscitation. Cardiac troponin enzymes were noted to be abnormal. Patient was further transferred to the ICU after had been administered clopidogrel as well as Lovenox. This morning is not having any discomfort is still mildly hypotensive. [] Past Medical History Allergies/Adverse Reactions: Allergies codeine Allergy (Verified 01/05/18 22:05) Itching Home Medications: Ambulatory Orders Medication Instructions Recorded Oxycodone HCl/Acetaminophen 1 - 2 tablet PO Q6H PRN PRN 08/15/14 [Percocet 10-325 mg Tablet] Past Medical History (Chronic Problems): Chronic Problems Diabetes mellitus, type II (Chronic) HTN (hypertension) (Chronic) HLD (hyperlipidemia) (Chronic) Obesity (BMI 30.0-34.9) (Chronic) Surgical History: - - Partial hysterectomy, tonsillectomy, right oophorectomy. 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 - *Family History Maternal History Items: - - Patient denies any marked paternal or maternal family history including heart disease, diabetes, cancer. Paternal History Items: - - Patient denies any marked paternal or maternal family history including heart disease, diabetes, cancer. Lives: Spouse/ Significant Other Smoking Status: Former smoker Tobacco Use: Non-smoker Alcohol: None Drugs: None Review of Systems - Review of Systems General: Denies: Fever, Night Sweats, Fatigue HEENT: Denies: Vision Change Cardiovascular: Reports: Chest Discomfort, Chest Discomfort at Rest, Chest Heaviness, Dizziness. Denies: Shortness of Breath, Orthopnea, PND, Peripheral Edema, Palpitations, Lightheadedness, Near Syncope, Syncope Respiratory: Denies: Cough, Sputum Production, Hemoptysis Gastrointestinal: Denies: Indigestion, Hematemesis, Hematochezia, Melena Genitourinary: Denies: Dysuria, Hematuria Muscoloskeletal: Denies: Myalgias Skin: Denies: Rash Neurological: Reports: Dizziness Psychiatric: Denies: Anxiety Endocrine: Denies: Unexplained Weight Loss Hematologic/ Lymphatic: Denies: Anemia Subjectve: Pleasant lady in no apparent distress Objective: Vital Signs Temp Pulse Resp BP Pulse Ox 97.7 F L 71 19 H 93/51 L 100 01/06/18 08:00 01/06/18 08:00 01/06/18 08:00 01/06/18 08:00 01/06/18 08:00 Oxygen Flow Rate (L/min) 2 Oxygen Delivery Method Room Air Weight: 203 lb 7.787 oz Body Mass Index (BMI) 34.9 Intake and Output for Last 24 Hours 01/04/18 01/05/18 01/06/18 23:59 23:59 23:59 Intake Total 2786 / 2786 Output Total 200 / 200 Balance 2586 / 2586 General: Awake, Alert, Oriented x 3 HEENT: PERRL, EOMI, Sclera Non Icteric Neck: Supple, Good ROM, No Lymph Node Enlargement Lungs: Clear to auscultation Cardiovascular: Regular Rhythm, Normal S1, Normal S2, No Murmurs, No Rubs, No Gallops Vascular: No Carotid Bruits, Normal Femoral Pulses, Normal Radial Pulses, Normal Dorsalis Pedal Pulse, Normal Posterior Tibial Pulses Abdomen: Bowel Sounds Present, Soft, Non Tender, No HSM, No Organomegaly Extremities: No Cyanosis, No Clubbing, No edema Musculoskeletal: No Erythema Skin: No Rashes Lymphatic: No Lymph Node Enlargement Neurological: No Focal Motor or Sensory Deficit Psych/Mental Status: Appropriate 01/05/18 22:24: WBC 12.0 H, RBC 4.42, Hgb 12.6, Hct 39.0, MCV 88.2, MCH 28.5, MCHC 32.3, RDW 12.5, RDW Differential 40.3, Plt Count 295, MPV 9.3, Immature Gran % (Auto) 0.200, Neut % (Auto) 76.9 H, Lymph % (Auto) 16.6 L, [place] % (Auto) 4.3, Eos % (Auto) 1.8, Baso % (Auto) 0.2, Absolute Neuts (auto) 9.2 H, Total Counted Not Reportable 01/05/18 22:24: Sodium 138, Potassium 3.9, Chloride 104, Carbon Dioxide 25.0, Anion Gap 9, BUN 30 H, Creatinine 1.50 H, Est GFR (MDRD) Af Amer 45 L, Est GFR (MDRD) Non-Af 37 L, BUN/Creatinine Ratio 20.0, Glucose 201 H, Calcium 9.3, Troponin I 0.813 H* 01/05/18 22:24: Hemoglobin A1c 7.3 H 01/06/18 01:38: Troponin I 1.020 H* 01/06/18 01:38: Magnesium 1.8 01/06/18 04:40: WBC 11.0, RBC 3.50 L, Hgb 10.0 L, Hct 31.7 L, MCV 90.6, MCH 28.6, MCHC 31.5 L, RDW 12.4, RDW Differential 39.8, Plt Count 256, MPV 9.7 01/06/18 04:40: Sodium 143, Potassium 3.9, Chloride 110 H, Carbon Dioxide 25.0, Anion Gap 8, BUN 26 H, Creatinine 1.25 H, Est GFR (MDRD) Af Amer 56 L, Est GFR (MDRD) Non-Af 46 L, BUN/Creatinine Ratio 20.8 H, Glucose 80, Calcium 8.3 L, Triglycerides 141, Cholesterol 115, LDL Cholesterol 52, VLDL Cholesterol 28, HDL Cholesterol 35 L 01/06/18 04:40: Troponin I 0.784 H* 01/06/18 07:40: D-Dimer Quant (PE/DVT) Cancelled Rhythm: EKG: Normal sinus rhythm with poor R wave progression ECHO: Bedside echocardiogram performed demonstrates ejection fraction of approximately 40-45%. There is distal anterior and apical hypokinesis present. No significant regurgitant or stenotic jets. Assessment/Plan 1. Non-ST elevation myocardial infarction * Patient presents with chest discomfort and is noted to have a non-ST elevation myocardial infarction. Patient was also noted to be hypotensive. * Patient started on aspirin and clopidogrel * Also continue on Lovenox * Bedside echocardiogram demonstrated mildly reduced left ventricular systolic function with wall motion abnormality involving the distal anterior wall and apex * Will treat with supportive IV fluids * Intensity statin * We will schedule cardiac catheterization in a.m. The above has been discussed with the patient the risk benefits and alternatives who understands and agrees to proceed. * 2. Hypotension * Etiology was not entirely clear however with echocardiogram it demonstrates that her ejection fraction is not significantly reduced * We will therefore treat with supportive intravenous fluids * No need for urgent cardiac catheterization at this time or additional pressor agents * Above discussed with patient and nurses. * * Thank you for allowing me to participate in the care of your patient. Please don't hesitate to call if any issues arise
[2018-01-06] MEDS: Aspirin E.C. 81 MG Tablet PO (08:30)
[2018-01-06] MEDS: 0.9% Normal Saline 1,000 ML 125 ML IV ×2 (08:31→16:32)
[2018-01-06 08:43] LABS: D-Dimer Quantitative (DVT/PE) 0.42 FEU/ug/m (0.27-0.49)
[2018-01-06 08:51] LABS: Bedside Glucose 75 mg/dL (70-110)
[2018-01-06 08:51] LABS: Bedside Glucose 58 mg/dL (70-110)
[2018-01-06] MEDS: Enoxaparin 100 MG/ML Syringe 90 MG SC ×2 (10:06→21:08)
[2018-01-06] MEDS: Clopidogrel Bisulfate 75 MG Tablet PO (10:12)
[2018-01-06 11:41] LABS: Bedside Glucose 79 mg/dL (70-110)
[2018-01-06] MEDS: Acetaminophen 325 MG Tablet 650 MG PO (13:36)
[2018-01-06 16:15] LABS: Bedside Glucose 154 mg/dL (70-110)
[2018-01-06] MEDS: oxyCODONE 5 MG Tablet PO (16:18)
[2018-01-06] MEDS: Insulin Lispro 100 UNIT/ML INSULN.PEN SC (17:19)
[2018-01-06] MEDS: Ondansetron 4 MG/2 ML Vial IV (21:06)
[2018-01-06] MEDS: 0.9% NaCl Peripheral Flush Adult/Peds IV ×2 (21:06→22:51)
[2018-01-06] MEDS: proMETHazine 25 MG/ML Syringe 12.5 MG IV (22:51)
[2018-01-06 23:41] LABS: Bedside Glucose 123 mg/dL (70-110)
[2018-01-07] VITALS (25 sets, daily range): BP systolic 109–134; BP diastolic 50–74; PULSE 73–98; RESP 15–21; TEMP 36.6–37.4; O2SAT 91–99
[2018-01-07 00:26] LABS: Color, Urine Yellow (Yellow); Glucose, Dipstick Normal (Normal); Ketone-Dipstick Negative (Negative); Leukocyte Esterase-Dipstick 25 /ul (Negative); Nitrite-Dipstick Negative (Negative); Occult Blood-Urine Negative /ul (Negative); Protein-Dipstick Negative (Negative); Urine Bilirubin Dipstick Negative (Negative); Urine Clarity Sl. Cloudy (Clear); Urine Urobilinogen Normal (Normal)
[2018-01-07] MEDS: 0.9% Normal Saline 1,000 ML 100 ML IV (01:06)
[2018-01-07] MEDS: 0.9% NaCl Peripheral Flush Adult/Peds IV (04:04)
[2018-01-07 04:17] LABS: Absolute Lymphocyte Count 2.29 X10^3/ul (0.83-4.51); Absolute Neutrophil Count 5.6 X10^3/uL (2.0-7.7); Basophil# 0.02 X10^3/uL; Basophil% 0.2 % (0-1); Eosinophil# 0.23 X10^3/uL; Eosinophils% 2.7 % (0-5); Hematocrit 32.7 % (37-47); Hemoglobin 10.3 g/dl (12.0-15.0); Lymphocyte # 2.29 X10^3/ul (4.0); Lymphocyte % 26.8 % (19-41); Mean Corp Hgb Conc 31.5 g/gl (32-36); Mean Corpuscular Hgb 28.5 pg (27.0-32.0); Mean Corpuscular Volume 90.6 fL (81-99); Mean Platelet Vol. 9.2 fl (6.2-12.0); Monocyte# 0.42 X10^3/uL; Monocyte% 4.9 % (0-10); Neutrophil # 5.59 X10^3/uL (2.7-7.7); Neutrophil % 65.3 % (47-70); Platelet Count 242 K/mm3 (150-450); RBC Distribution Width CV 12.4 % (11.6-14.6); RBC Distribution Width SD 39.6 fl (35.1-43.9); Red Blood Count 3.61 M/mm3 (4.2-5.4); White Blood Count 8.6 K/mm3 (4.4-11.0)
[2018-01-07 04:19] LABS: POSITIVE COUNT NO; POSITIVE DIFFERENTIAL NO; POSITIVE MORPHOLOGY NO
[2018-01-07 04:23] LABS: International Normalized Ratio 1.1; Prothrombin Time (Protime)PT. 14.6 SECONDS (11.7-14.9)
[2018-01-07 04:24] LABS: Partial Thromboplast Time 45.9 Seconds (24.1-36.2)
[2018-01-07 04:46] LABS: Anion Gap 8 (5-15); BUN 17 mg/dL (7-18); BUN/Creat Ratio 14.2 RATIO (10-20); Calcium,Total 8.1 mg/dL (8.5-10.1); Chloride 110 mmol/L (98-107); EST Glomerular Filtration Rate 48 mL/min (>60); Est Glom Filt Rate - Afr Amer 58 mL/min (>60); Glucose 156 mg/dL (74-106); Potassium 4.3 mmol/L (3.5-5.1); Sodium Level 144 mmol/L (136-145)
[2018-01-07] MEDS: Aspirin E.C. 81 MG Tablet PO (05:33)
[2018-01-07] MEDS: Clopidogrel Bisulfate 75 MG Tablet PO (05:33)
[2018-01-07] MEDS: CHLORHEXIDINE GLUC 2% CLOTH 1 EACH TOWELETTE TOPICAL (05:36)
[2018-01-07 05:40] LABS: Bedside Glucose 131 mg/dL (70-110)
--- NOTE | 2018-01-07 05:55 | EKG12_ITS ---
Test Reason : AM EKG Blood Pressure : / mmHG Vent. Rate : 069 BPM Atrial Rate : 069 BPM P-R Int : 200 ms QRS Dur : 088 ms QT Int : 446 ms P-R-T Axes : 056 -13 046 degrees QTc Int : 477 ms Normal sinus rhythm Low voltage QRS Borderline ECG When compared with ECG of 01-APR-2012 15:18, Criteria for Anterior infarct are no longer Present QT has lengthened Confirmed by TERRI WRIGHT, KATARINA ([id number]), online content editor LATRICE AMES ([id number] on 01/08/2018 4:12:21 PM Referred By: NE Confirmed By:KATARINA MURRAY MD
--- NOTE | 2018-01-07 07:27 | PCM.PN.CARD ---
Subjectve: Patient seen and evaluated. Objective: Vital Signs Temp Pulse Resp BP Pulse Ox 99.3 F H 88 16 117/68 91 01/07/18 00:00 01/07/18 06:00 01/07/18 06:00 01/07/18 06:00 01/07/18 06:00 Oxygen Flow Rate (L/min) 2 Oxygen Delivery Method Room Air Weight: 206 lb 5.643 oz Body Mass Index (BMI) 34.9 Intake and Output for Last 24 Hours 01/05/18 01/06/18 01/07/18 23:59 23:59 23:59 Intake Total 4598 / 4598 1297 / 1297 Output Total 1350 / 1350 1045 / 1045 Balance 3248 / 3248 252 / 252 General: Awake, Alert, Oriented x 3 HEENT: PERRL, EOMI, Sclera Non Icteric Neck: Supple, Good ROM, No Lymph Node Enlargement Lungs: Clear to auscultation Cardiovascular: Regular Rhythm, Normal S1, Normal S2, No Murmurs, No Rubs, No Gallops Vascular: No Carotid Bruits, Normal Femoral Pulses, Normal Radial Pulses, Normal Dorsalis Pedal Pulse, Normal Posterior Tibial Pulses Abdomen: Bowel Sounds Present, Soft, Non Tender, No HSM, No Organomegaly Extremities: No Cyanosis, No Clubbing, No edema Neurological: No Focal Motor or Sensory Deficit 01/05/18 22:24: Hemoglobin A1c 7.3 H 01/06/18 07:40: D-Dimer Quant (PE/DVT) Cancelled 01/06/18 08:15: D-Dimer Quant (PE/DVT) 0.42 01/06/18 23:58: Urine Color Yellow, Urine Clarity Sl. Cloudy, Urine pH 6.0, Ur Specific Mode 1.020, Urine Protein Negative, Urine Glucose (UA) Normal, Urine Ketones Negative, Urine Occult Blood Negative, Urine Nitrite Negative, Urine Bilirubin Negative, Urine Urobilinogen Normal, Ur Leukocyte Esterase 25 H 01/07/18 04:05: WBC 8.6, RBC 3.61 L, Hgb 10.3 L, Hct 32.7 L, MCV 90.6, MCH 28.5, MCHC 31.5 L, RDW 12.4, RDW Differential 39.6, Plt Count 242, MPV 9.2, Immature Gran % (Auto) 0.100, Neut % (Auto) 65.3, Lymph % (Auto) 26.8, [place] % (Auto) 4.9, Eos % (Auto) 2.7, Baso % (Auto) 0.2, Absolute Neuts (auto) 5.6, Total Counted Not Reportable 01/07/18 04:05: Sodium 144, Potassium 4.3, Chloride 110 H, Carbon Dioxide 26.0, Anion Gap 8, BUN 17, Creatinine 1.20 H, Est GFR (MDRD) Af Amer 58 L, Est GFR (MDRD) Non-Af 48 L, BUN/Creatinine Ratio 14.2, Glucose 156 H, Calcium 8.1 L 01/07/18 04:05: PT 14.6, INR 1.1, APTT 45.9 H Rhythm: EKG: ECHO: Stress Test: Cardiac Cath: PCI: CT Surgery: Holter monitor: EPS: PPM: CXR: Chest CT Scan: Medical Necessity - Tobacco Use Smoking Status: Former smoker Tobacco Use: Non-smoker Assessment/Plan 1. Non-ST elevation myocardial infarction Patient presents with chest discomfort and is noted to have a non-ST elevation myocardial infarction. He underwent a cardiac catheterization this morning which demonstrated the following: Normal left main coronary artery. Left anterior descending artery with mild luminal irregularities. Left circumflex artery with no high-grade stenosis. Nondominant right coronary artery with no high-grade stenosis. Elevated left ventricular end-diastolic pressure. Reduced left ventricular systolic dysfunction with anterior and apical and inferoapical hypokinesis. The above is consistent with takotsobo cardiomyopathy 2. Hypotension Etiology was not entirely clear however with echocardiogram it demonstrates that her ejection fraction is not significantly reduced We will therefore treat with supportive intravenous fluids Will reduce IV fluids for now As blood pressure improves will restart LEYDI inhibitor and beta-chacha Will recommend transferring to the progressive care unit and keep her overnight at least. Thank you for allowing me to participate in the care of your patient. Please don't hesitate to call if any issues arise
--- NOTE | 2018-01-07 07:30 | PN.CARD_ITS ---
Subjectve: Patient seen and evaluated. Objective: Vital Signs Temp Pulse Resp BP Pulse Ox 99.3 F H 88 16 117/68 91 01/07/18 00:00 01/07/18 06:00 01/07/18 06:00 01/07/18 06:00 01/07/18 06:00 Oxygen Flow Rate (L/min) 2 Oxygen Delivery Method Room Air Weight: 206 lb 5.643 oz Body Mass Index (BMI) 34.9 Intake and Output for Last 24 Hours 01/05/18 01/06/18 01/07/18 23:59 23:59 23:59 Intake Total 4598 / 4598 1297 / 1297 Output Total 1350 / 1350 1045 / 1045 Balance 3248 / 3248 252 / 252 General: Awake, Alert, Oriented x 3 HEENT: PERRL, EOMI, Sclera Non Icteric Neck: Supple, Good ROM, No Lymph Node Enlargement Lungs: Clear to auscultation Cardiovascular: Regular Rhythm, Normal S1, Normal S2, No Murmurs, No Rubs, No Gallops Vascular: No Carotid Bruits, Normal Femoral Pulses, Normal Radial Pulses, Normal Dorsalis Pedal Pulse, Normal Posterior Tibial Pulses Abdomen: Bowel Sounds Present, Soft, Non Tender, No HSM, No Organomegaly Extremities: No Cyanosis, No Clubbing, No edema Neurological: No Focal Motor or Sensory Deficit 01/05/18 22:24: Hemoglobin A1c 7.3 H 01/06/18 07:40: D-Dimer Quant (PE/DVT) Cancelled 01/06/18 08:15: D-Dimer Quant (PE/DVT) 0.42 01/06/18 23:58: Urine Color Yellow, Urine Clarity Sl. Cloudy, Urine pH 6.0, Ur Specific [place] 1.020, Urine Protein Negative, Urine Glucose (UA) Normal, Urine Ketones Negative, Urine Occult Blood Negative, Urine Nitrite Negative, Urine Bilirubin Negative, Urine Urobilinogen Normal, Ur Leukocyte Esterase 25 H 01/07/18 04:05: WBC 8.6, RBC 3.61 L, Hgb 10.3 L, Hct 32.7 L, MCV 90.6, MCH 28.5, MCHC 31.5 L, RDW 12.4, RDW Differential 39.6, Plt Count 242, MPV 9.2, Immature Gran % (Auto) 0.100, Neut % (Auto) 65.3, Lymph % (Auto) 26.8, [place] % (Auto) 4.9, Eos % (Auto) 2.7, Baso % (Auto) 0.2, Absolute Neuts (auto) 5.6, Total Counted Not Reportable 01/07/18 04:05: Sodium 144, Potassium 4.3, Chloride 110 H, Carbon Dioxide 26.0, Anion Gap 8, BUN 17, Creatinine 1.20 H, Est GFR (MDRD) Af Amer 58 L, Est GFR (MDRD) Non-Af 48 L, BUN/Creatinine Ratio 14.2, Glucose 156 H, Calcium 8.1 L 01/07/18 04:05: PT 14.6, INR 1.1, APTT 45.9 H Rhythm: EKG: ECHO: Stress Test: Cardiac Cath: PCI: CT Surgery: Holter monitor: EPS: PPM: CXR: Chest CT Scan: Medical Necessity - Tobacco Use Smoking Status: Former smoker Tobacco Use: Non-smoker Assessment/Plan 1. Non-ST elevation myocardial infarction * Patient presents with chest discomfort and is noted to have a non-ST elevation myocardial infarction. * He underwent a cardiac catheterization this morning which demonstrated the following: Normal left main coronary artery. Left anterior descending artery with mild luminal irregularities. Left circumflex artery with no high-grade stenosis. Nondominant right coronary artery with no high-grade stenosis. Elevated left ventricular end-diastolic pressure. Reduced left ventricular systolic dysfunction with anterior and apical and inferoapical hypokinesis. The above is consistent with takotsobo cardiomyopathy 2. Hypotension * Etiology was not entirely clear however with echocardiogram it demonstrates that her ejection fraction is not significantly reduced * We will therefore treat with supportive intravenous fluids * Will reduce IV fluids for now * As blood pressure improves will restart LEYDI inhibitor and beta-chacha * * Will recommend transferring to the progressive care unit and keep her overnight at least. * Thank you for allowing me to participate in the care of your patient. Please don't hesitate to call if any issues arise
--- NOTE | 2018-01-07 07:35 | CL.D_ITS ---
Patient Name: LUBA MARSH Study Date: 01/07/2018 Performing: Ethan Hayes MD Ht: 64.17 inches 163 cm : 1955 Wt: 207.23 lbs 94 kg Age: 62 Gender: female BSA: 1.99 PROCEDURE(S) PERFORMED [id number] CLINICAL PROFILE AND INDICATIONS Indications: Suspected CAD Heart Failure: None Stress/Imaging Stress/Image Study Performed: No CONCLUSIONS Non obstructive coronary arteries Cardiomyopathy: Takotsubo RECOMMENDATIONS Medical therapy DESCRIPTION OF PROCEDURE The patient arrived to the procedure lab. The risks and benefits of the procedure as well as a full d escription of our services here and current unavailability of surgical backup were fully explained to the patient and/or their significant other prior to the catheterization. The Timeout was completed, verifying the correct patient and procedure. The patient's procedural site was prepped and draped in the usual fashion. Local anesthetic was given subcutaneously to right radial region with Lidocaine 2% . Using a modified Seldinger technique, arterial access was obtained via the right radial artery, a 6 Fr sheath was inserted. Left Coronary Artery selective angiography was performed in multiple views u sing a 5 Fr. 4.0 [place] catheter. Right Coronary Artery selective angiography was then performed in mu ltiple views using a 5 Fr. 4.0 [place] catheter. Left Ventriculography was performed in BLANCO projection using a 5 Fr. [place] catheter. LV to AO pullback pressures were then recorded.The arterial sheath was pulled and a TR Band was applied for hemostasis CORONARY ANGIOGRAPHY DOMINANCE: Left Dominant LEFT HEART ASSESSMENT Anterior Hypokinesis - Severe Depressed Left Ventricular systolic function Consistent with Takotsubo cardiomyopathy. LVEDP: 28 mmHg LEFT MAIN: Angiographically normal LEFT ANTERIOR DECENDING ARTERY: Mild luminal irregularities CIRCUMFLEX ARTERY: Mild luminal irregularities RIGHT CORONARY ARTERY: Mild luminal irregularities COMPLICATIONS No Complications PROCEDURE MEDICATIONS Fentanyl 50 mcg IV Versed 1 mg IV Oxygen: 2 L/min via nasal cannula Heparin diluted in 23cc Heparinized saline. Patient given 10cc IA of this solution. 01/07/2018 07:13 :40 Verapamil 2.5mg, Ntg 100mcgs, 2000 units of Heparin diluted in 23cc Heparinized saline. Patient give n 10cc IA of this solution. 01/07/2018 07:13:40 SUMMARY OF HEMODYNAMIC DATA Time AIR REST ECG 07:01:38 AO 135/76 (103) SA 07:15:10 LV 142/20, 29 07:20:17 LV 137/20, 30 07:20:24 LV 130/21, 31 07:21:53 LVp 135/21, 32 07:22:01 AOp 142/77 (107) 07:22:06 Signed By Ethan Hayes MD On 01/07/2018 07:34:58 Ethan Hayes MD
[2018-01-07] MEDS: 0.9% Normal Saline 1,000 ML 60 ML IV (08:11)
--- NOTE | 2018-01-07 08:22 | PN_ITS ---
Patient Problems: Active and Suspected Problems NSTEMI (non-ST elevated myocardial infarction) (Acute) Subjective: Chief complaint: Follow-up after admission for acute non-ST elevation GA. Patient seen and examined. No acute events overnight. She denies any more chest pain, no shortness of breath. She underwent cardiac catheterization this morning that revealed no significant coronary artery disease, reduced LV systolic function consistent with Takotsubo cardiomyopathy. Her vital signs are stable. - Physical Exam General: Alert, Oriented x3, Cooperative, No apparent distress HEENT: Atraumatic, PERRLA, EOMI, Normocephalic Oral: Moist Mucosa, No Gingival or Mucosal Lesions/ Ulcerations Neck: Supple, No JVD, Negative Carotid Bruits, Thyroid Normal Size and Texture Lungs: Clear to auscultation, Normal air movement, No rhonchi, No wheeze, No rales Cardiovascular: Regular rate, Regular Rhythm, Normal S1, Normal S2, PMI Normal Abdomen: Bowel Sounds Present, Soft, Non Tender, Non-Distended, No Hepato- splenomegaly Extremities: No clubbing, No cyanosis, No edema Skin: No rashes, No breakdown Lymphatic: No Cervical, Supraclavicular, or Inguinal Adenopathy Neurological: Cranial nerves II-XII grossly intact, Motor Exam 5/5 strength throughout Psych/Mental Status: Normal Affect, Appropriate, Alert and oriented to time, place, person, mood and affect Vital Signs Temp Pulse Resp BP Pulse Ox 99.3 F H 85 16 117/68 91 01/07/18 00:00 01/07/18 08:00 01/07/18 06:00 01/07/18 06:00 01/07/18 06:00 Oxygen Flow Rate (L/min) 2 Oxygen Delivery Method Room Air Weight: 206 lb 5.643 oz Body Mass Index (BMI) 34.9 Intake and Output for Last 24 Hours 01/05/18 01/06/18 01/07/18 23:59 23:59 23:59 Intake Total 4598 / 4598 1297 / 1297 Output Total 1350 / 1350 1045 / 1045 Balance 3248 / 3248 252 / 252 Laboratory Tests Past 24 Hrs 01/06/18 01/06/18 01/07/18 08:15 23:58 04:05 WBC 8.6 RBC 3.61 L Hgb 10.3 L Hct 32.7 L MCV 90.6 MCH 28.5 MCHC 31.5 L RDW 12.4 RDW Differential 39.6 Plt Count 242 MPV 9.2 Immature Gran % (Auto) 0.100 Neut % (Auto) 65.3 Lymph % (Auto) 26.8 Woods % (Auto) 4.9 Eos % (Auto) 2.7 Baso % (Auto) 0.2 Absolute Neuts (auto) 5.6 Absolute Lymphs (auto) 2.29 Total Counted Not Reportable PT INR APTT D-Dimer Quant (PE/DVT) 0.42 Sodium Potassium Chloride Carbon Dioxide Anion Gap BUN Creatinine Estim Creat Clear Calc Est GFR (MDRD) Af Amer Est GFR (MDRD) Non-Af BUN/Creatinine Ratio Glucose Calcium Urine Color Yellow Urine Clarity Sl. Cloudy Urine pH 6.0 Ur Specific [place] 1.020 Urine Protein Negative Urine Glucose (UA) Normal Urine Ketones Negative Urine Occult Blood Negative Urine Nitrite Negative Urine Bilirubin Negative Urine Urobilinogen Normal Ur Leukocyte Esterase 25 H 01/07/18 01/07/18 04:05 04:05 WBC RBC Hgb Hct MCV MCH MCHC RDW RDW Differential Plt Count MPV Immature Gran % (Auto) Neut % (Auto) Lymph % (Auto) Woods % (Auto) Eos % (Auto) Baso % (Auto) Absolute Neuts (auto) Absolute Lymphs (auto) Total Counted PT 14.6 INR 1.1 APTT 45.9 H D-Dimer Quant (PE/DVT) Sodium 144 Potassium 4.3 Chloride 110 H Carbon Dioxide 26.0 Anion Gap 8 BUN 17 Creatinine 1.20 H Estim Creat Clear Calc 40.90 Est GFR (MDRD) Af Amer 58 L Est GFR (MDRD) Non-Af 48 L BUN/Creatinine Ratio 14.2 Glucose 156 H Calcium 8.1 L Urine Color Urine Clarity Urine pH Ur Specific [place] Urine Protein Urine Glucose (UA) Urine Ketones Urine Occult Blood Urine Nitrite Urine Bilirubin Urine Urobilinogen Ur Leukocyte Esterase POC Glucose 01/07/18 01/06/18 01/06/18 05:32 21:02 16:04 POC Glucose 131 H 123 H 154 H 01/06/18 01/06/18 01/06/18 11:26 08:45 08:24 POC Glucose 79 75 58 L Medical Necessity - Tobacco Use Smoking Status: Former smoker Assessment/Plan All Active Problems NSTEMI (non-ST elevated myocardial infarction) (Acute) This is a 62 years old female patient presented to the ED because of chest pain, found to have acute non-ST elevation GA status post cardiac catheterization. #1 acute non-STEMI: Status post cardiac catheterization that revealed angiographically normal left main coronary artery, mild luminal irregularities of the left anterior descending, left circumflex and right coronary arteries and also found to have reduced LV systolic function with anterior and apical as well as inferoapical hypokinesis consistent with Takotsubo cardiomyopathy. She is on aspirin, statins. She has no more chest pain. Her vital signs are stable. 2D echocardiogram ordered, awaiting the report. Plan: Transfer to PCU, start lisinopril and metoprolol, anticipate discharge home tomorrow. #2 renal insufficiency: This is not clear if it is acute or chronic. Admission creatinine was 1.50. Creatinine was normal back in August,, no blood work in between. Creatinine improved down to 1.20 today, improving. Plan to continue IV fluids, repeat BMP tomorrow morning. #3 type 2 diabetes mellitus: Blood sugar stable, continue glipizide and sliding scale. #4 hypertension: Blood pressure stable, will resume lisinopril and start metoprolol. #5 hyperlipidemia: Continue statins. #6 DVT prophylaxis: SCDs. This note was generated with [employer] dictation software. It may contain incorrect words, spelling, and punctuation that were not noted in checking the note before signing. Code Visit Inpatient E&M: 36533 Subs Hosp L2
--- NOTE | 2018-01-07 09:08 | NURSING ---
report called to tawanna HAMMER RN
[2018-01-07 11:35] LABS: Bedside Glucose 150 mg/dL (70-110)
[2018-01-07] MEDS: 0.9% Normal Saline 1,000 ML 75 ML IV (11:58)
[2018-01-07] MEDS: Insulin Lispro 100 UNIT/ML INSULN.PEN SC (11:58)
[2018-01-07] MEDS: Baclofen 10 MG Tablet PO ×2 (12:04→21:24)
[2018-01-07] MEDS: busPIRone 15 MG TABLET PO ×2 (12:04→21:24)
[2018-01-07] MEDS: Lisinopril 10 MG Tablet PO (12:04)
[2018-01-07] MEDS: Pantoprazole Sodium 20 MG Tablet PO (12:04)
[2018-01-07] MEDS: Oxybutynin 5 MG Tablet 10 MG PO ×2 (12:08→21:24)
--- NOTE | 2018-01-07 13:28 | CASEMGMT ---
SW met w/pt for discharge planning. PCP: Doug Florence Preferred Pharmacy: [facility] or [facility] mail Insurance: [employer]/Medicaid Prescription Benefit: [employer] Living Will/POA: No, declined further information as per admission [place]IL[place]: Daughter, , son, grandchildren, sisters Living arrangements: Trailer, 3 steps in, w/ Transportation: Pt drives though car is not working as of right now, also drives DME/HHC: Has a walker, does not use. Pt prepares meals but she and are not keeping up with the cleaning. Pt has no history of home health. SW spoke w/pt at length in regard to discharge plan. Pt does plan to return home at discharge. Pt lives w/, though he has not been staying there consistently as his mother has been ill. He has been back home for about a month. Pt reports he is disabled. She states they are just friends, states that he used to drink but stopped. Pt's daughter is battling lymphoma. Pt's son Mikal is in [place]. Pt reports all of these relationships to be strained. She states her daughter did not talk w/pt for 8 years. There were some issues in regard to pt's grandson, as she let grandson stay w/her when he was struggling w/heroin addiction, and tried to be supportive to him in ways that the daughter did not approve. Now she is on talking terms w/her daughter. Pt states has sisters but has not spoken w/them in years as they were hand feeding their mother when she had Alzheimer's, and pt did not agree with this. Pt talked at length about many family stressors and difficult situations, both current and in the past. SW inquired if she ever felt suicidal. Pt states yes, but she would never act on it as [facility]. Pt describes herself as a gnosticist person, and states would never act on this. SW spoke w/pt about applying for Passport services, pt is agreeable. SW faxed in referral. DAVIS also asked pt about getting in to [facility], or Behavioral Health. Pt thinks it would be difficult to do Behavioral Health due to the time commitment, as she does not get out during the winter. Pt is agreeable to DAVIS setting up an appt at [facility]. DAVIS called [facility] and set up an appointment for January 17, 2018, at 9:30 am. SW went back to the room to give pt the information, has two visitors at present. SW handed pt the card with the appointment information, also put the information in the discharge appointment screen in [employer]. Plan: home at discharge, referral to Passport and appt made for pt at [facility]. HOANG Sorensen, APPEALS REFEREE
[2018-01-07 16:11] LABS: Bedside Glucose 134 mg/dL (70-110)
[2018-01-07] MEDS: glipiZIDE 5 MG Tablet PO (16:49)
[2018-01-07] MEDS: FLUoxetine 20 MG Capsule PO (16:50)
[2018-01-07] MEDS: Metoprolol Tartrate 25 MG Tablet 12.5 MG PO (21:23)
[2018-01-07 22:00] LABS: Bedside Glucose 121 mg/dL (70-110)
[2018-01-07] MEDS: Acetaminophen 325 MG Tablet 650 MG PO (22:53)
[2018-01-08] VITALS (7 sets, daily range): BP systolic 115–134; BP diastolic 54–71; PULSE 72–86; RESP 18; TEMP 36.9–37; O2SAT 91–95
[2018-01-08 07:06] LABS: Bedside Glucose 106 mg/dL (70-110)
[2018-01-08 07:38] LABS: Anion Gap 9 (5-15); BUN 15 mg/dL (7-18); BUN/Creat Ratio 13.4 RATIO (10-20); Chloride 110 mmol/L (98-107); Creatinine, Serum 1.12 mg/dL (0.55-1.02); EST Glomerular Filtration Rate 52 mL/min (>60); Est Glom Filt Rate - Afr Amer 63 mL/min (>60); Estimated Creatinine Clearance 43.82 ml/min; Glucose 118 mg/dL (74-106); Potassium 4.1 mmol/L (3.5-5.1); Sodium Level 145 mmol/L (136-145)
--- NOTE | 2018-01-08 08:31 | PN.CARD_ITS ---
Subjectve: Patient was seen and evaluated. Appears to be doing better Objective: Vital Signs Temp Pulse Resp BP Pulse Ox 98.5 F 72 18 115/54 L 93 01/08/18 03:50 01/08/18 07:08 01/08/18 03:50 01/08/18 03:50 01/08/18 03:50 Oxygen Flow Rate (L/min) 2 Oxygen Delivery Method Room Air Weight: 206 lb 5.643 oz Body Mass Index (BMI) 34.9 Intake and Output for Last 24 Hours 01/06/18 01/07/18 01/08/18 23:59 23:59 23:59 Intake Total 4598 / 4598 2767 / 2767 120 / 120 Output Total 1350 / 1350 1045 / 1045 Balance 3248 / 3248 1722 / 1722 120 / 120 General: Awake, Alert, Oriented x 3 HEENT: PERRL, EOMI, Sclera Non Icteric Neck: Supple, Good ROM, No Lymph Node Enlargement Lungs: Clear to auscultation Cardiovascular: Regular Rhythm, Normal S1, Normal S2, No Murmurs, No Rubs, No Gallops Vascular: No Carotid Bruits, Normal Femoral Pulses, Normal Radial Pulses, Normal Dorsalis Pedal Pulse, Normal Posterior Tibial Pulses Abdomen: Bowel Sounds Present, Soft, Non Tender, No HSM, No Organomegaly Extremities: No Cyanosis, No Clubbing, No edema Neurological: No Focal Motor or Sensory Deficit 01/08/18 06:40: Sodium 145, Potassium 4.1, Chloride 110 H, Carbon Dioxide 26.0, Anion Gap 9, BUN 15, Creatinine 1.12 H, Est GFR (MDRD) Af Amer 63, Est GFR (MDRD) Non-Af 52 L, BUN/Creatinine Ratio 13.4, Glucose 118 H, Calcium 9.0 Rhythm: EKG: ECHO: Stress Test: Cardiac Cath: PCI: CT Surgery: Holter monitor: EPS: PPM: CXR: Chest CT Scan: Medical Necessity - Tobacco Use Smoking Status: Former smoker Tobacco Use: Non-smoker Assessment/Plan 1. Non-ST elevation myocardial infarction * Patient presents with chest discomfort and is noted to have a non-ST elevation myocardial infarction. * He underwent a cardiac catheterization this morning which demonstrated the following: Normal left main coronary artery. Left anterior descending artery with mild luminal irregularities. Left circumflex artery with no high-grade stenosis. Nondominant right coronary artery with no high-grade stenosis. Elevated left ventricular end-diastolic pressure. Reduced left ventricular systolic dysfunction with anterior and apical and inferoapical hypokinesis. The above is consistent with takotsobo cardiomyopathy 2. Hypotension * Etiology was likely secondary to the stress induced cardiomyopathy. * LEYDI inhibitor restarted and low-dose beta-chacha will be started * Will recommend discharge home for outpatient follow-up. Will arrange for follow-up in my office in a week.. * Thank you for allowing me to participate in the care of your patient. Please don't hesitate to call if any issues arise
[2018-01-08] MEDS: Lisinopril 10 MG Tablet PO (08:55)
[2018-01-08] MEDS: Oxybutynin 5 MG Tablet 10 MG PO (08:55)
[2018-01-08] MEDS: Metoprolol Tartrate 25 MG Tablet 12.5 MG PO (08:55)
[2018-01-08] MEDS: glipiZIDE 5 MG Tablet PO (08:56)
[2018-01-08] MEDS: FLUoxetine 20 MG Capsule 40 MG PO (08:56)
[2018-01-08] MEDS: Pantoprazole Sodium 20 MG Tablet PO (08:56)
[2018-01-08] MEDS: Aspirin E.C. 81 MG Tablet PO (08:56)
[2018-01-08] MEDS: Baclofen 10 MG Tablet PO (08:56)
[2018-01-08] MEDS: busPIRone 15 MG TABLET PO (08:56)
[2018-01-08] MEDS: Carvedilol 3.125 MG TABLET PO (09:43)
--- NOTE | 2018-01-08 10:07 | DCINST_ITS ---
- Discharge Diagnoses Current Active Problems: Current Active and Chronic Problems NSTEMI (non-ST elevated myocardial infarction) (Acute) Diabetes mellitus, type II (Chronic) HTN (hypertension) (Chronic) HLD (hyperlipidemia) (Chronic) Obesity (BMI 30.0-34.9) (Chronic) You will use the following diet at home:: Cardiac Your food should be the consistency of: Regular Discharge Activity: Return to Normal Activity Weight Bearing Status: Weight bearing as tolerated Call your doctor if you observe: Fever of 101 or Higher, Shortness of breath, Dizziness, Fainting spells, Swelling in the ankles, Chest pain, Increased pal pitations (irregular heartbeat), Uncontrolled pain Allergies/Adverse Reactions: Allergies codeine Allergy (Verified 01/05/18 22:05) Itching Medications to take at Discharge Oxycodone HCl/Acetaminophen [Percocet 10-325 mg Tablet] 5 mg PO DAILY 08/15/14 Alendronate Sodium [Fosamax] 70 mg PO QWEEK 01/06/18 Baclofen 10 mg PO BID 01/06/18 Benzonatate 100 - 200 mg PO QHS PRN 01/06/18 Buspirone HCl 15 mg PO BID 01/06/18 Fluoxetine HCl 20 mg PO DINNER 01/06/18 Fluoxetine HCl 40 mg PO BREAKFAST 01/06/18 Glipizide 5 mg PO BID 01/06/18 Lisinopril/Hydrochlorothiazide [Zestoretic 11/23.5 Tablet] 1 tablet PO DAILY 01/06/18 Meclizine HCl 25 mg PO 4X/DAY PRN 01/06/18 Meloxicam 15 mg PO DAILY 01/06/18 Multivitamins,Therapeutic [Multivitamin] 1 tablet PO DAILY 01/06/18 Omeprazole 20 mg PO DAILY 01/06/18 Oxybutynin [Ditropan] 10 mg PO BID 01/06/18 Simvastatin 40 mg PO DAILY 01/06/18 Tizanidine HCl [Zanaflex] 4 mg PO PRN PRN 01/06/18 Aspirin E.C. [Ecotrin] 81 mg PO DAILY@0800 #90 tab 01/08/18 Carvedilol [Coreg (Beta Shorty)] 3.125 mg PO BID #90 tab 01/08/18 The following prescriptions were given: Aspirin E.C. [Ecotrin] 81 mg PO DAILY@0800 #90 tab Carvedilol [Coreg (Beta Shorty)] 3.125 mg PO BID #90 tab Primary Care Physician: Doug Florence MD [Primary Care Provider] - Please follow up with your Primary Care Physician in: 2 weeks. Test Results: Test results from this visit will be discussed in further detail at your follow- up appointment, if applicable. Please Follow Up With: [facility] When: Sunday Please Follow Up With: Ethan Hayes MD When: 1 week.
--- NOTE | 2018-01-08 16:19 | PCM.DC.SUM ---
Discharge Date and Diagnosis Date of Admission: 01/05/18 Date of Discharge: 01/08/18 - Primary Discharge Diagnosis #1 acute non-ST elevation IL. #2 Takotsubo cardiomyopathy. #3 renal insufficiency, unclear if it is acute or chronic. - Secondary Discharge Diagnosis Chronic Problems Diabetes mellitus, type II (Chronic) HTN (hypertension) (Chronic) HLD (hyperlipidemia) (Chronic) Obesity (BMI 30.0-34.9) (Chronic) Hospital Course and Treatment Imaging Results: Clinical Impression(s) from Imaging Studies Chest X-Ray 01/05/18 22:20 IMPRESSION: No acute process. Electronically Signed: Fátima Bucio MD at 23:20 EST Tel , Service support , Dr. Hayes, cardiology. Operations: None Procedures: 2-D Echocardiogram, Cardiac catheterization, EKG Summary of Care Provided: Patient seen and examined this child appears to be stable to be discharged home. She has no more chest pain, denies shortness of breath. Her vital signs are stable. The patient is a 62 year old F admitted because of chest pain and she was found to have acute non-ST elevation IL. Her EKG revealed no evidence of acute ischemic changes. Her troponin was elevated and maximum troponin was 1.02. She was treated with aspirin, statins, beta-blockers and lisinopril. She underwent cardiac catheterization that revealed angiographically normal left main coronary artery, mild luminal irregularities of the left anterior descending, left circumflex and right coronary arteries and also found to have reduced LV systolic function with anterior, apical and inferoapical hypokinesis consistent with Takotsubo cardiomyopathy. 2D echocardiogram revealed ejection fraction of 40%, moderate segmental systolic dysfunction and structurally normal valves. There was no evidence of acute CHF. On admission, her creatinine was 1.50 and she was treated with IV fluids and his creatinine came down to 1.12. It is not clear if this slightly elevated creatinine is acute or chronic. The only available serum creatinine was normal and that was and August,. Patient was kept on aspirin, statins, Coreg and lisinopril. Her vital signs remained stable. Patient discharged home in a stable medical condition, discharged on aspirin, statins, beta-blockers and DAMIR inhibitors, recommended follow-up with PCP in 2 weeks, follow-up with cardiology in 1 week. - Physical Exam General: Alert, Oriented x3, Cooperative, No apparent distress HEENT: Atraumatic, PERRLA, EOMI, Normocephalic Oral: Moist Mucosa, No Gingival or Mucosal Lesions/ Ulcerations Neck: Supple, No JVD, Negative Carotid Bruits, Trachea Midline, Thyroid Normal Size and Texture Lungs: Clear to auscultation, Normal air movement, No rhonchi, No wheeze, No rales Cardiovascular: Regular rate, Regular Rhythm, Normal S1, Normal S2, PMI Normal Abdomen: Bowel Sounds Present, Soft, Non Tender, Non-Distended, No Hepato-splenomegaly Extremities: No clubbing, No cyanosis, No edema Skin: No rashes, No breakdown Lymphatic: No Cervical, Supraclavicular, or Inguinal Adenopathy Neurological: Cranial nerves II-XII grossly intact, Neuro grossly intact Psych/Mental Status: Normal Affect, Appropriate Vital Signs Temp Pulse Resp BP Pulse Ox 98.6 F 76 18 134/71 H 95 01/08/18 08:52 01/08/18 08:55 01/08/18 09:09 01/08/18 08:52 01/08/18 08:52 Oxygen Flow Rate (L/min) 2 Oxygen Delivery Method Room Air Weight: 206 lb 5.643 oz Body Mass Index (BMI) 34.9 Intake and Output for Last 24 Hours 01/06/18 01/07/18 01/08/18 23:59 23:59 23:59 Intake Total 4598 / 4598 2767 / 2767 120 / 120 Output Total 1350 / 1350 1045 / 1045 Balance 3248 / 3248 1722 / 1722 120 / 120 Laboratory Tests Past 24 Hrs 01/08/18 06:40 Sodium 145 Potassium 4.1 Chloride 110 H Carbon Dioxide 26.0 Anion Gap 9 BUN 15 Creatinine 1.12 H Estim Creat Clear Calc 43.82 Est GFR (MDRD) Af Amer 63 Est GFR (MDRD) Non-Af 52 L BUN/Creatinine Ratio 13.4 Glucose 118 H Calcium 9.0 POC Glucose 01/08/18 01/07/18 07:00 21:20 POC Glucose 106 121 H Discharge Activity: Return to Normal Activity Weight Bearing Status: Weight bearing as tolerated Call your doctor if you observe: Fever of 101 or Higher, Shortness of breath, Dizziness, Fainting spells, Swelling in the ankles, Chest pain, Increased palpitations (irregular heartbeat), Uncontrolled pain Home Medications: Medications to take at Discharge Oxycodone HCl/Acetaminophen [Percocet 10-325 mg Tablet] 5 mg PO DAILY 08/15/14 Alendronate Sodium [Fosamax] 70 mg PO QWEEK 01/06/18 Baclofen 10 mg PO BID 01/06/18 Benzonatate 100 - 200 mg PO QHS PRN 01/06/18 Buspirone HCl 15 mg PO BID 01/06/18 Fluoxetine HCl 20 mg PO DINNER 01/06/18 Fluoxetine HCl 40 mg PO BREAKFAST 01/06/18 Glipizide 5 mg PO BID 01/06/18 Lisinopril/Hydrochlorothiazide [Zestoretic 11/23.5 Tablet] 1 tablet PO DAILY 01/06/18 Meclizine HCl 25 mg PO 4X/DAY PRN 01/06/18 Meloxicam 15 mg PO DAILY 01/06/18 Multivitamins,Therapeutic [Multivitamin] 1 tablet PO DAILY 01/06/18 Omeprazole 20 mg PO DAILY 01/06/18 Oxybutynin [Ditropan] 10 mg PO BID 01/06/18 Simvastatin 40 mg PO DAILY 01/06/18 Tizanidine HCl [Zanaflex] 4 mg PO PRN PRN 01/06/18 Aspirin E.C. [Ecotrin] 81 mg PO DAILY@0800 #90 tab 01/08/18 Carvedilol [Coreg (Beta Shorty)] 3.125 mg PO BID #90 tab 01/08/18 Following Prescrptions Were Given to Patient: Aspirin E.C. [Ecotrin] 81 mg PO DAILY@0800 #90 tab Carvedilol [Coreg (Beta Shorty)] 3.125 mg PO BID #90 tab Primary Care Physician: Doug Florence MD [Primary Care Provider] - Please follow up with your Primary Care Physician in: 2 weeks. Please Follow Up With: [facility] When: Sunday Please Follow Up With: Ethan Hayes MD When: 1 week. Please Follow Up With: Doug Florence MD Disposition: Home Minutes spent on discharge:: 32 Patient Condition:: Stable Medical Necessity - Tobacco Use Smoking Status: Former smoker Tobacco Use: Non-smoker Meaningful Use Info Meaningful Use Diagnoses (Choose all that apply): AMI - AMI Aspirin given w/in 24hrs of arrival?: Yes ASA at discharge?: Yes Statins at discharge?: Yes Damir/ARB at discharge?: Yes Beta Shorty at discharge?: Yes Done w/ Acute IL measure.: Yes Code Visit Inpatient E&M: 31723 Disch Hosp
--- NOTE | 2018-01-08 16:24 | DS.PCM_ITS ---
Discharge Date and Diagnosis Date of Admission: 01/05/18 Date of Discharge: 01/08/18 - Primary Discharge Diagnosis #1 acute non-ST elevation WA. #2 Takotsubo cardiomyopathy. #3 renal insufficiency, unclear if it is acute or chronic. - Secondary Discharge Diagnosis Chronic Problems Diabetes mellitus, type II (Chronic) HTN (hypertension) (Chronic) HLD (hyperlipidemia) (Chronic) Obesity (BMI 30.0-34.9) (Chronic) Hospital Course and Treatment Imaging Results: Clinical Impression(s) from Imaging Studies Chest X-Ray 01/05/18 22:20 IMPRESSION: No acute process. Electronically Signed: Fátima Bucio MD at 23:20 EST Tel , Service support , Dr. Hayes, cardiology. Operations: None Procedures: 2-D Echocardiogram, Cardiac catheterization, EKG Summary of Care Provided: Patient seen and examined this child appears to be stable to be discharged home. She has no more chest pain, denies shortness of breath. Her vital signs are stable. The patient is a 62 year old F admitted because of chest pain and she was found to have acute non-ST elevation WA. Her EKG revealed no evidence of acute ischemic changes. Her troponin was elevated and maximum troponin was 1.02. She was treated with aspirin, statins, beta-blockers and lisinopril. She underwent cardiac catheterization that revealed angiographically normal left main coronary artery, mild luminal irregularities of the left anterior descending, left circumflex and right coronary arteries and also found to have reduced LV systolic function with anterior, apical and inferoapical hypokinesis consistent with Takotsubo cardiomyopathy. 2D echocardiogram revealed ejection fraction of 40%, moderate segmental systolic dysfunction and structurally normal valves. There was no evidence of acute CHF. On admission, her creatinine was 1.50 and she was treated with IV fluids and his creatinine came down to 1.12. It is not clear if this slightly elevated creatinine is acute or chronic. The only available serum creatinine was normal and that was and August,. Patient was kept on aspirin, statins, Coreg and lisinopril. Her vital signs remained stable. Patient discharged home in a stable medical condition, discharged on aspirin, statins, beta-blockers and DAMIR inhibitors, recommended follow-up with PCP in 2 weeks, follow-up with cardiology in 1 week. - Physical Exam General: Alert, Oriented x3, Cooperative, No apparent distress HEENT: Atraumatic, PERRLA, EOMI, Normocephalic Oral: Moist Mucosa, No Gingival or Mucosal Lesions/ Ulcerations Neck: Supple, No JVD, Negative Carotid Bruits, Trachea Midline, Thyroid Normal Size and Texture Lungs: Clear to auscultation, Normal air movement, No rhonchi, No wheeze, No rales Cardiovascular: Regular rate, Regular Rhythm, Normal S1, Normal S2, PMI Normal Abdomen: Bowel Sounds Present, Soft, Non Tender, Non-Distended, No Hepato- splenomegaly Extremities: No clubbing, No cyanosis, No edema Skin: No rashes, No breakdown Lymphatic: No Cervical, Supraclavicular, or Inguinal Adenopathy Neurological: Cranial nerves II-XII grossly intact, Neuro grossly intact Psych/Mental Status: Normal Affect, Appropriate Vital Signs Temp Pulse Resp BP Pulse Ox 98.6 F 76 18 134/71 H 95 01/08/18 08:52 01/08/18 08:55 01/08/18 09:09 01/08/18 08:52 01/08/18 08:52 Oxygen Flow Rate (L/min) 2 Oxygen Delivery Method Room Air Weight: 206 lb 5.643 oz Body Mass Index (BMI) 34.9 Intake and Output for Last 24 Hours 01/06/18 01/07/18 01/08/18 23:59 23:59 23:59 Intake Total 4598 / 4598 2767 / 2767 120 / 120 Output Total 1350 / 1350 1045 / 1045 Balance 3248 / 3248 1722 / 1722 120 / 120 Laboratory Tests Past 24 Hrs 01/08/18 06:40 Sodium 145 Potassium 4.1 Chloride 110 H Carbon Dioxide 26.0 Anion Gap 9 BUN 15 Creatinine 1.12 H Estim Creat Clear Calc 43.82 Est GFR (MDRD) Af Amer 63 Est GFR (MDRD) Non-Af 52 L BUN/Creatinine Ratio 13.4 Glucose 118 H Calcium 9.0 POC Glucose 01/08/18 01/07/18 07:00 21:20 POC Glucose 106 121 H Discharge Activity: Return to Normal Activity Weight Bearing Status: Weight bearing as tolerated Call your doctor if you observe: Fever of 101 or Higher, Shortness of breath, Dizziness, Fainting spells, Swelling in the ankles, Chest pain, Increased palpitations (irregular heartbeat), Uncontrolled pain Home Medications: Medications to take at Discharge Oxycodone HCl/Acetaminophen [Percocet 10-325 mg Tablet] 5 mg PO DAILY 08/15/14 Alendronate Sodium [Fosamax] 70 mg PO QWEEK 01/06/18 Baclofen 10 mg PO BID 01/06/18 Benzonatate 100 - 200 mg PO QHS PRN 01/06/18 Buspirone HCl 15 mg PO BID 01/06/18 Fluoxetine HCl 20 mg PO DINNER 01/06/18 Fluoxetine HCl 40 mg PO BREAKFAST 01/06/18 Glipizide 5 mg PO BID 01/06/18 Lisinopril/Hydrochlorothiazide [Zestoretic 11/23.5 Tablet] 1 tablet PO DAILY 01/06/18 Meclizine HCl 25 mg PO 4X/DAY PRN 01/06/18 Meloxicam 15 mg PO DAILY 01/06/18 Multivitamins,Therapeutic [Multivitamin] 1 tablet PO DAILY 01/06/18 Omeprazole 20 mg PO DAILY 01/06/18 Oxybutynin [Ditropan] 10 mg PO BID 01/06/18 Simvastatin 40 mg PO DAILY 01/06/18 Tizanidine HCl [Zanaflex] 4 mg PO PRN PRN 01/06/18 Aspirin E.C. [Ecotrin] 81 mg PO DAILY@0800 #90 tab 01/08/18 Carvedilol [Coreg (Beta Shorty)] 3.125 mg PO BID #90 tab 01/08/18 Following Prescrptions Were Given to Patient: Aspirin E.C. [Ecotrin] 81 mg PO DAILY@0800 #90 tab Carvedilol [Coreg (Beta Shorty)] 3.125 mg PO BID #90 tab Primary Care Physician: Doug Florence MD [Primary Care Provider] - Please follow up with your Primary Care Physician in: 2 weeks. Please Follow Up With: [facility] When: Sunday Please Follow Up With: Ethan Hayes MD When: 1 week. Please Follow Up With: Doug Florence MD Disposition: Home Minutes spent on discharge:: 32 Patient Condition:: Stable Medical Necessity - Tobacco Use Smoking Status: Former smoker Tobacco Use: Non-smoker Meaningful Use Info Meaningful Use Diagnoses (Choose all that apply): AMI - AMI Aspirin given w/in 24hrs of arrival?: Yes ASA at discharge?: Yes Statins at discharge?: Yes Damir/ARB at discharge?: Yes Beta Shorty at discharge?: Yes Done w/ Acute WA measure.: Yes Code Visit Inpatient E&M: 66350 Disch Hosp
== END 2018-01-08 10:55 | disposition home or self-care (01) | DRG 281 ==
LOC: ED 22:39 → ICU 01-06 → PCU 01-07 09:09
PROVIDERS: Internal Medicine; Internal Medicine Cardiovascular Disease; Admitting Provider Family Medicine; Emergency Provider Emergency Medicine; Family Provider Family Medicine; PCP Family Medicine; Visit Provider Hospitalist
DX: I21.4 Non-ST elevation (NSTEMI) myocardial infarction (principal); I51.81 Takotsubo syndrome; E66.9 Obesity, unspecified; E78.5 Hyperlipidemia, unspecified; E11.9 Type 2 diabetes mellitus without complications; N28.9 Disorder of kidney and ureter, unspecified; I11.9 Hypertensive heart disease without heart failure; Z87.891 Personal history of nicotine dependence; Z68.34 Body mass index [BMI] 34.0-34.9, adult; Z79.84 Long term (current) use of oral 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 drugs
CPT/HCPCS: 36415; 71045; 80048; 80061; 81002; 82962; 83036; 83735; 84484; 85025; 85027; 85379; 85610; 85730; 87641; 93005; 93306; 93458; 97802; 99152; 99153; 99283; J7030; Q9957; Q9967; A4216; C1769; C1894; C8929; J2405

== ENCOUNTER 2018-02-25 12:53 | Emergency (ER) | payer MEDICARE, MEDICAID, SELFPAY ==
[2018-01-25 15:07] VITALS: BMI 34.7
[2018-02-25 12:54] VITALS: BP 122/72; PULSE 76; RESP 18; TEMP 36.8; O2SAT 96; BMI 32.6
--- NOTE | 2018-02-25 13:24 | RAD_ITS ---
STUDY: X-RAY - THORACIC SPINE REASON FOR EXAM: Female, 62 years old. Fall Sunday morning. History of prior vertebral fracture T2-T3 a few years ago. TECHNIQUE: 4 view(s) of the thoracic spine were obtained. COMPARISON: None. FINDINGS: S-shaped scoliotic curvature of the thoracal lumbar spine. Osteopenia. Mild upper thoracic kyphosis. There is mild superior endplate compression at T11. Superior endplate compression and inferior endplate compression at L2 with mild superior endplate wedging, age-indeterminate. Vertebral body height and alignment otherwise normal. Minimal multilevel disc narrowing. Small bridging anterior osteophytes are present at multiple levels of the mid to low thoracic spine. Limited lateral view of the cervical spine reveals mild disc degenerative disease at C5-C6. There is mild enlargement of the cardiac silhouette. Mild ectasia of the aortic arch. The visualized portions of the lungs are clear. RAD/Thoracic Spine 3 Views IMPRESSION: Mild superior endplate compression at T11, age-indeterminate. Compression fracture of L2, age indeterminate. Scoliosis and mild spondylosis. Electronically Signed: Fransico Graham MD at 14:29 EST Tel , Service support ,
--- NOTE | 2018-02-25 13:24 | RAD_ITS ---
STUDY: X-RAY - PELVIS REASON FOR EXAM: Female, 62 years old. Fall Sunday morning onto the left side. TECHNIQUE: One view of the pelvis was obtained. COMPARISON: None. FINDINGS: Osteopenia. Mild low lumbar spondylosis. No significant SI joint degeneration. Mild degenerative features of the hip joints bilaterally. No visible acute fracture. No acute intrapelvic process. Prominent calcification of the proximal femoral arteries. RAD/Pelvis 1 or 2 Views IMPRESSION: No radiographic evidence of acute injury. Electronically Signed: Fransico Graham MD at 14:22 EST Tel , Service support ,
--- NOTE | 2018-02-25 13:24 | RAD_ITS ---
STUDY: X-RAY - LEFT HUMERUS REASON FOR EXAM: Fall Sunday morning. TECHNIQUE: 2 view(s) of the humerus. COMPARISON: None. FINDINGS: There is osteopenia. Normal visualized humerus. There is no demonstrated fracture or osseous destructive process. There is no demonstrated soft tissue abnormality. RAD/Humerus min 2 Views IMPRESSION: Osteopenia. No demonstrated fracture. Electronically Signed: Moses Stockton MD at 14:45 EST Tel , Service support ,
[2018-02-25] MEDS: fentaNYL 100 MCG/2 ML Ampul 50 MCG IM (13:39)
--- NOTE | 2018-02-25 13:50 | RAD_ITS ---
STUDY: X-RAY CHEST REASON FOR EXAM: Female, 62 years old. Pain following a recent fall. TECHNIQUE: AP and lateral views of the chest. COMPARISON: Comparison is made with prior study dated January 05, 2018. FINDINGS: The lungs are clear and expanded. There is no demonstrated pleural abnormality. Normal size heart. Normal mediastinum and rayna. Normal visualized pulmonary arteries. There is atherosclerotic tortuosity of the aortic arch and descending thoracic aorta. There are diffuse degenerative changes of the visualized thoracic spine. There is degenerative osteoarthritis of the bilateral shoulders. There is no demonstrated abnormality of the visualized soft tissue structures of the upper abdomen. RAD/Chest PA and Lateral IMPRESSION: No acute abnormality is seen. Electronically Signed: Christopher Jackson MD at 14:24 EST Tel [phone], Service support ,
[2018-02-25 14:53] VITALS: RESP 18; O2SAT 97
--- NOTE | 2018-02-25 15:06 | ED.VISSUMM ---
- ER Visit Summary Date of Service: 02/25/18 Chief Complaint: Fall History of Present Illness: The patient is a [address] Doug Florence. She reports that 2 days ago she lost her balance and fell in the kitchen. She reports that she hurts everywhere. When asked about specific areas she reports that she has mid back pain that is 10 out of 10 severity. She has left-sided chest pain is 6 out of 10 severity. She has left shoulder pain senna 10 severity. She has bilateral hip pain that is 10 out of 10 severity. She is reports that she took half a Percocet without relief. She states that she lives alone and is able to get around. Physical Examination: Vitals: Stable. Afebrile. Neck: No vertebral tenderness. Full ROM without difficulty. Cleared by NEXUS criteria. Back: Mild tenderness palpation from approximately T8-T12. No lumbar tenderness to palpation. General: A&O x 3. NAD. Cardiovascular exam: Regular rate and rhythm, no murmur, rub or gallop. Respiratory exam: Chest nontender. No crepitus. Clear to auscultation bilaterally. No wheezes or stridor. Abdominal exam: Soft, nontender, nondistended, normal bowel sounds. No pain in RUQ or LUQ specifically. No peritoneal signs. Extremity: Mild tenderness palpation over the left humerus. Good range of motion without difficulty. Mild tenderness palpation over the greater trochanters bilaterally. No pain with internal/external rotation. Test Results: Left humerus x-ray shows no acute disease. Pelvis x-ray shows no acute disease. Thoracic spine x-ray shows a mild superior endplate compression of the left T11 and a compression fracture of L2. Chest x-ray shows no pneumothorax or rib fracture. Emergency Department Course and Treatment: Patient was initially treated with a dose of fentanyl IM. She was also given oxycodone p.o. She reports that she does have a history of fractures in my back. She is unsure what level this was at. There is no old x-ray for comparison. She has no lumbar tenderness to palpation. Treatment Plan: Patient sees Dr. Stephen. I discussed with her the fact that she is in pain management I cannot send her home with further pain medications. She is instructed to follow-up with him as soon as possible for further evaluation and treatment. Return to the emergency department for any worsening symptoms. Disposition: To home in improved and stable condition. Impression: 1. L2 compression fracture, age-indeterminate. 2. 2 days status post fall. This note was generated with [employer] dictation software. It may contain incorrect words, spelling, and punctuation that were not noted in review of the chart prior to signing ED Disposition - Plan for ED Patient: Disposition: Home or Assisted Living Chief Complaint: Fall Instructions: ED Fx Comp Vertebral Referrals: Doug Florence MD [Primary Care Provider] - 1 Week if not improving
[2018-02-25] MEDS: oxyCODONE 5 MG Tablet PO (15:32)
[2018-02-25 15:33] VITALS: O2SAT 98
== END 2018-02-25 15:47 | disposition home or self-care (01) ==
PROVIDERS: Emergency Provider Emergency Medicine; Family Provider Family Medicine; PCP Family Medicine
DX: S32.029A Unspecified fracture of second lumbar vertebra, initial encounter for closed fracture (principal); E11.9 Type 2 diabetes mellitus without complications; E78.00 Pure hypercholesterolemia, unspecified; I10 Essential (primary) hypertension; Z79.82 Long term (current) use of aspirin; Z79.891 Long term (current) use of opiate analgesic; Z79.899 Other long term (current) drug therapy; W18.30XA Fall on same level, unspecified, initial encounter; Y93.89 Activity, other specified; Y92.000 Kitchen of unspecified non-institutional (private) residence as the place of occurrence of the external cause; Y99.8 Other external cause status
CPT/HCPCS: 71046; 72072; 72170; 73060; 96372; 99284

== ENCOUNTER → 2018-06-25 14:31 | Outpatient (CLI) | payer MEDICARE, MEDICAID, SELFPAY ==
[2018-05-27 14:33] VITALS: BMI 31.2
[2018-06-25 17:53] LABS: Absolute Lymphocyte Count 2.39 X10^3/ul (0.83-4.51); Absolute Neutrophil Count 6.5 X10^3/uL (2.0-7.7); Basophil# 0.02 X10^3/uL; Basophil% 0.2 % (0-1); Eosinophil# 0.35 X10^3/uL; Eosinophils% 3.6 % (0-5); Hematocrit 35.8 % (37-47); Hemoglobin 11.4 g/dl (12.0-15.0); Lymphocyte # 2.39 X10^3/ul (4.0); Lymphocyte % 24.7 % (19-41); Mean Corp Hgb Conc 31.8 g/gl (32-36); Mean Corpuscular Hgb 28.6 pg (27.0-32.0); Mean Corpuscular Volume 89.7 fL (81-99); Mean Platelet Vol. 9.7 fl (6.2-12.0); Monocyte# 0.38 X10^3/uL; Monocyte% 3.9 % (0-10); Neutrophil % 67.4 % (47-70); Platelet Count 315 K/mm3 (150-450); RBC Distribution Width CV 12.5 % (11.6-14.6); RBC Distribution Width SD 40.4 fl (35.1-43.9); Red Blood Count 3.99 M/mm3 (4.2-5.4); White Blood Count 9.7 K/mm3 (4.4-11.0)
[2018-06-25 17:57] LABS: POSITIVE COUNT NO; POSITIVE DIFFERENTIAL NO; POSITIVE MORPHOLOGY NO
[2018-06-25 18:14] LABS: Vitamin B12 755 pg/mL (211-911); Vitamin D,25 Hydroxy 24.1 ng/mL (29.95-100.01)
[2018-06-25 18:19] LABS: ALB/GLOB Ratio 1.1 RATIO (0.9-2.4); AST(SGOT) 11 U/L (15-37); Alanine Aminotransfer ALT/SGPT 20 U/L (13-56); Albumin, Serum 3.7 g/dL (3.2-5.0); Alkaline Phosphatase 114 U/L (45-117); Anion Gap 10 (5-15); BUN 28 mg/dL (7-18); BUN/Creat Ratio 22.8 RATIO (10-20); Chloride 107 mmol/L (98-107); Creatinine, Serum 1.23 mg/dL (0.55-1.02); EST Glomerular Filtration Rate 47 mL/min (>60); Est Glom Filt Rate - Afr Amer 56 mL/min (>60); Globulin 3.5 g/dL (2.2-4.2); Glucose 251 mg/dL (74-106); Potassium 4.6 mmol/L (3.5-5.1); Protein, Total 7.2 g/dL (6.4-8.2); Sodium Level 141 mmol/L (136-145); T4 Free Direct 0.88 ng/dL (0.76-1.46); Thyroid Stim Hormone (TSH) 1.61 uIU/mL (0.358-3.74)
== END ==
PROVIDERS: Family Provider Family Medicine; PCP Family Medicine; Visit Provider Family Medicine
DX: E11.9 Type 2 diabetes mellitus without complications (principal); E55.9 Vitamin D deficiency, unspecified; R94.6 Abnormal results of thyroid function studies; R41.3 Other amnesia
CPT/HCPCS: 36415; 80053; 82306; 82607; 84439; 84443; 85025

== ENCOUNTER → 2018-07-04 | Outpatient (CLI) | payer MEDICARE, MEDICAID, SELFPAY ==
[2018-05-27 14:33] VITALS: BMI 31.2
--- NOTE | 2018-07-04 12:53 | ECHOCS_ITS ---
Reason For Study: CHF Procedure This was a 2D Doppler, Color Flow transthoracic echocardiogram. The study was technically difficult. Contrast injection was performed. Exam performed in department. Left Ventricle Normal LV size. Left ventricular systolic function is normal. The estimated ejection fraction is 65 %. Stage 1 diastolic dysfunction. No regional wall motion abnormalities noted. Right Ventricle Normal RV size. Normal systolic function. Atria Normal left atrium. Normal right atrium. Mitral Valve Normal mitral valve. Tricuspid Valve Normal tricuspid valve. Aortic Valve The aortic valve is not well visualized. Pulmonic Valve Normal pulmonic valve. Great Vessels Normal aortic root. The pulmonary artery is normal size. Normal inferior vena cava. Pericardium/Pleural No pericardial effusion. Medication 22 gauge I.V. with prn adaptor inserted into right arm. Diluted definity 2ml given slow IV push to enhance endocardial definition. MMode/2D Measurements & Calculations LVIDd: 3.1 cm IVSd: 1.2 cm Ao root diam: 3.2 cm LVIDs: 2.0 cm LVPWd: 1.1 cm FS: 34.2 % LAV(MOD-bp): 36.5 ml LVAd ap4: 31.5 cm2 SV(MOD-sp4): 65.7 ml LAV(MOD-bp) Indexed: 19.6 ml/m2 EDV(MOD-sp4): 100.6 ml LAV(MOD-sp2): 40.0 ml EDV(sp4-el): 103.4 ml LAV(MOD-sp4): 31.0 ml LVAs ap4: 16.6 cm2 ESV(MOD-sp4): 34.9 ml ESV(sp4-el): 36.4 ml EF(MOD-sp4): 65.3 % EF(sp4-el): 64.8 % SV(sp4-el): 67.0 ml LA A4 area: 14.3 cm2 RA A4 area: 11.1 cm2 Time Measurements MV dec time: 0.28 sec Doppler Measurements & Calculations MV E max moustapha: 49.7 cm/sec Lat Peak E' Moustapha: 9.0 cm/sec Med Peak E' Moustapha: 5.3 cm/sec MV A max moustapha: 75.3 cm/sec E/E' lat: 5.5 E/E' med: 9.4 MV E/A: 0.66 MV V2 max: 107.9 cm/sec MV P1/2t max moustapha: 83.8 cm/sec Ao V2 max: 119.4 cm/sec MV max P.7 mmHg MV P1/2t: 81.2 msec Ao max P.7 mmHg MV V2 mean: 64.0 cm/sec MV mean P.9 mmHg MV dec slope: 302.2 cm/sec2 MV V2 VTI: 21.8 cm MVA(P1/2t): 2.7 cm2 LV V1 max: 81.5 cm/sec LV V1 max P.7 mmHg Interpretation Summary Normal LV size. Left ventricular systolic function is normal. The estimated ejection fraction is 65 %. Stage 1 diastolic dysfunction. Contrast injection was performed. Ordering Physician: Paula Meng Referring Physician: Paula Meng Performed By: Matthias Woodson RCS
== END | disposition home or self-care (01) ==
PROVIDERS: Family Provider Family Medicine; PCP Family Medicine; Referring Provider Physician Assistant Medical; Visit Provider Physician Assistant Medical
DX: I25.10 Atherosclerotic heart disease of native coronary artery without angina pectoris (principal)
CPT/HCPCS: 93306; Q9957; A4216; C8929

== ENCOUNTER → 2019-02-03 11:52 | Outpatient (CLI) | payer MEDICARE, SELFPAY ==
[2018-12-17 13:33] VITALS: BMI 29.7
--- NOTE | 2019-02-03 11:55 | RAD_ITS ---
STUDY: X-RAY - LUMBAR SPINE REASON FOR EXAM: Female, 63 years old. low back pain TECHNIQUE: 3 view(s) of the lumbar spine were obtained. COMPARISON: None FINDINGS: Normal lumbar lordosis. There is no substantial scoliosis. Difficult to assess alignment at L5-S1, cannot exclude mild anterolisthesis at this level. There is diffuse demineralization with multi-level endplate spondylosis. There is multi-level degenerative disc disease with multi-level disc space narrowing. There is multilevel decrease in vertebral body height with concave appearance consistent with osteoporotic induced chronic compression fractures. Significant hypertrophy of the facets at L4-L5 and L5-S1. There is a vertebroplasty at L5. There is atherosclerotic disease of aorta. RAD/Lumbar Spine 2 or 3 Views IMPRESSION: Advanced osteopenia/osteoporosis with multiple compression fractures, likely chronic but difficult to accurately assess the age. If indicated, this can be further evaluated with MRI or bone scan in nonacute setting. Electronically Signed: Tamiko Thayer MD at 3:03 EST , Service support ,
== END ==
PROVIDERS: Family Provider Family Medicine; PCP Family Medicine; Referring Provider Anesthesiology Pain Medicine; Visit Provider Anesthesiology Pain Medicine
DX: M54.9 Dorsalgia, unspecified (principal)
CPT/HCPCS: 72100

== ENCOUNTER 2019-02-12 10:01 | Inpatient (IN) | payer MEDICARE, SELFPAY ==
[2018-12-17 13:33] VITALS: BMI 29.7
[2019-02-12] VITALS (9 sets, daily range): BP systolic 160–184; BP diastolic 74–102; PULSE 100–112; RESP 16–20; TEMP 36.5–38.3; O2SAT 98–100; BMI 30.7; BMI 29.2
--- NOTE | 2019-02-12 10:06 | EKG12_ITS ---
Test Reason : Blood Pressure : / mmHG Vent. Rate : 107 BPM Atrial Rate : 105 BPM P-R Int : 182 ms QRS Dur : 090 ms QT Int : 350 ms P-R-T Axes : 064 001 064 degrees QTc Int : 467 ms Somatic/ Motion Artifact Sinus Rhythm Nonspecific ST abnormality Poor R- wave progression Abnormal ECG Confirmed by ALEXANDER WRIGHT, REGINA ([id number]), metropolitan editor JULIO CESAR DIANE ([id number]) on 02/14/2019 2:18:23 PM Referred By: Chencho Short Confirmed By:REGINA MUNOZ MD
--- NOTE | 2019-02-12 10:07 | ED.DCSUM_ITS ---
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 Onset: Days Context: Sudden Onset Timing: Intermittent Quality: Nausea, vomiting and diarrhea per squad and flu/viral symptoms Location: Unknown Current Severity: - - Unknown Maximum Severity: - - Unknown Worsened by: Unknown Relieved by: Nothing Associated Symptoms: Unknown Narrative: Patient is a 63-year-old woman who arrives from home by ambulance because of viral-like symptoms. She reportedly has a cough and has had nausea, vomiting diarrhea. Patient stares when asked questions. Squad states she has mild dementia. Patient's behavior is abnormal and would suggest probable metabolic or infectious etiology since her behavior is changes more than one would expect for mild dementia. History is limited because of patient's condition. When son arrived I spoke with him. There was a family gathering for [employer]. There were multiple family numbers that were ill. He states his father got him this morning because his mother was not acting appropriately. There are times when she appears agitated and there is times when she will not respond. He reports that she is had a cough. He does confirm that there is been vomiting and apparent diarrhea. He believes she may have early onset dementia. If metabolic infectious work-up is negative will obtain CT of the head. Prior similar symptoms: No Recent Illness/Hospitalization: No - Past Medical History (1) Essential (primary) hypertension Status: Chronic (2) Hyperlipidemia Status: Chronic (3) NSTEMI (non-ST elevated myocardial infarction) Status: Chronic (4) Nonobstructive atherosclerosis of coronary artery Status: Chronic (5) Takotsubo syndrome Status: Chronic Past Medical History - Allergies and Home Meds Allergies/Adverse Reactions: Allergies codeine Allergy (Verified 12/17/18 13:33) Itching Primary Care Physician: Doug Florence MD [Primary Care Provider] - Prior records reviewed: Yes Surgical History: - - Partial hysterectomy, tonsillectomy, right oophorectomy. Lives: With Family Smoking Status: Former smoker Alcohol: None Drugs: None - Family History Maternal Family History: Family History (Last Reviewed 12/17/18 @ 13:59 by Ethan Hayes MD) Mother Cancer Father Cancer Family History: Reports: - - Patient denies any marked paternal or maternal family history including heart disease, diabetes, cancer. Paternal Family History: Family History (Last Reviewed 12/17/18 @ 13:59 by Ethan Hayes MD) Mother Cancer Father Cancer Family History: Reports: - - Patient denies any marked paternal or maternal family history including heart disease, diabetes, cancer. Review of Systems ROS: Unable to Obtain Respiratory: Reports: Cough Gastrointestinal: Reports: Nausea, Vomiting, Diarrhea Physical Exam Vital Signs/Narrative: Vital Signs Temp Pulse Resp BP Pulse Ox 02/12/19 10:04 99.6 F H 100 20 H 184/99 H 99 Inital Vital Signs reviewed: Yes General: Well nourished, Well developed, Obese, No Acute Distress Head: Normocephalic, Atraumatic. Negative for: Trauma, Tenderness Eyes: Perrl, EOMI. Negative for: Pale conjunctiva, Scleral icterus ENT: No rhinorrhea, Dry mucous membranes Neck: Supple, Nontender, No lymphadenopathy, No JVD Cardiovascular: Regular rate, Regular rhythm, No murmurs, Normal S1, Normal S2 Respiratory: No distress, Chest nontender, Rales Abdomen: Soft, Nontender, Nondistended, Normal bowel sounds Rectal: Deferred Back: Nontender Extremities: Nontender. Negative for: Calf Tenderness Skin: Normal color, No rash, No Trauma. Negative for: Cyanosis, Diaphoresis, Jaundice Neurological: Cranial nerves II-XII grossly intact, Normal Strength, Normal Sensation. Negative for: Alert, Oriented x3, Normal Gait Psychological: - - Able to determine Diagnostic/Tx/Re-eval Chest X-Ray - ED: 2 View, Read by ED Physician, Normal, Heart, Bony Structures, Chronic Changes, - - Film is slightly rotated. Inspiratory volume is poor which affects read. There is no obvious infiltrate. Suspect interstitial changes are secondary to poor inspiration. 6 at best 7 ribs are seen. 02/12/19 10:06 Chest PA and Lateral [RAD] Stat 02/12/19 11:05 Brain/Head without Contrast [CT] Stat Laboratory Results 02/12/19 02/12/19 02/12/19 10:10 10:10 11:00 WBC 11.4 H RBC 4.46 Hgb 13.0 Hct 39.3 MCV 88.1 MCH 29.1 MCHC 33.1 RDW Std Deviation 38.7 RDW Coeff of Gerhard 11.9 Plt Count 313 MPV 9.2 Immature Gran % (Auto) 0.800 Neut % (Auto) 86.4 H Lymph % (Auto) 10.0 L [place] % (Auto) 2.2 Eos % (Auto) 0.4 Baso % (Auto) 0.2 Absolute Neuts (auto) 9.9 H Absolute Lymphs (auto) 1.14 Nucleated RBC % 0 Sodium 140 Potassium 3.8 Chloride 105 Carbon Dioxide 22.0 Anion Gap 13 BUN 27 H Creatinine 1.63 H Estim Creat Clear Calc 30.96 Est GFR (MDRD) Af Amer 41 L Est GFR (MDRD) Non-Af 34 L BUN/Creatinine Ratio 16.6 Glucose 239 H Calcium 9.5 Urine Color Yellow Urine Clarity Clear Urine pH 7.0 Ur Specific [place] 1.010 Urine Protein 30 H Urine Glucose (UA) 100 H Urine Ketones 50 H Urine Occult Blood 10 H Urine Nitrite Negative Urine Bilirubin Negative Urine Urobilinogen Normal Ur Leukocyte Esterase Negative Urine RBC 0 SEEN Urine WBC 0 SEEN Ur Squamous Epith Cells 0 SEEN Urine Bacteria 0 SEEN Urine Mucus 0 SEEN No evidence of pneumonia, UTI, metabolic cause for her acute delirium/change in mental status CT of the head was obtained. Review of CT by me reveals no obvi ous abnormality. Awaiting formal read by radiologist, 1132 - EKG Initial EKG Interpretation: Sinus Rhythm - Sinus rhythm with a rate of 107. There is significant artifact secondary to patient's agitation and movement. OH interval is 182 ms. QRS duration 90 ms. QT duration 3 and 50 ms. [place] is normal. - Medical Decision Making With infectious symptoms and change in mental status need to evaluate for sepsis. Chest x-ray was obtained because of abnormal auscultatory findings and reported cough. UA to assess for urinary tract infection. Because patient had nausea, viral diarrhea will obtain basic metabolic panel to assess for electrolyte abnormality, acute kidney injury and CO2/anion gap. Clinically she appears dehydrated. She received 500 cc of normal saline and was treated with Zofran for reported vomiting. Spoke with son. If metabolic infectious work-up is negative will obtain CT of the head. ED Disposition - Plan for ED Patient: Disposition: Acute Care [facility] [place] Diagnosis: Acute delirium, Sinus tachycardia by electrocardiogram, Hypertension Referrals: Doug Florence MD [Primary Care Provider] -
[2019-02-12] MEDS: Ondansetron 4 MG/2 ML Vial IV ×3 (10:19→23:46)
[2019-02-12 10:21] LABS: Absolute Lymphocyte Count 1.14 X10^3/uL (0.83-4.51); Absolute Neutrophil Count 9.9 X10^3/uL (2.0-7.7); Basophil# 0.02 X10^3/uL; Basophil% 0.2 % (0-1); Eosinophil# 0.05 X10^3/uL; Eosinophils% 0.4 % (0-5); Hematocrit 39.3 % (37-47); Lymphocyte # 1.14 X10^3/ul (4.0); Mean Corp Hgb Conc 33.1 g/dL (32-36); Mean Corpuscular Hgb 29.1 pg (27.0-32.0); Mean Corpuscular Volume 88.1 fL (81-99); Mean Platelet Vol. 9.2 fl (6.2-12.0); Monocyte# 0.25 X10^3/uL; Monocyte% 2.2 % (0-10); NRBC Flagged by Analyzer 0 % (0-5); Neutrophil # 9.87 X10^3/uL (2.7-7.7); Neutrophil % 86.4 % (47-70); Platelet Count 313 K/mm3 (150-450); RBC Distribution Width CV 11.9 % (11.6-14.6); RBC Distribution Width SD 38.7 fl (35.1-43.9); Red Blood Count 4.46 M/mm3 (4.2-5.4); White Blood Count 11.4 K/mm3 (4.4-11.0)
[2019-02-12] MEDS: LORazepam 2 MG/ML Syringe 0.5 MG IV ×2 (10:26→11:08)
--- NOTE | 2019-02-12 10:31 | ED.RN ---
PT SON ARRIVES
[2019-02-12 10:32] LABS: Anion Gap 13 (5-15); BUN 27 mg/dL (7-18); BUN/Creat Ratio 16.6 RATIO (10-20); Calcium,Total 9.5 mg/dL (8.5-10.1); Chloride 105 mmol/L (98-107); Creatinine, Serum 1.63 mg/dL (0.55-1.02); EST Glomerular Filtration Rate 34 mL/min (>60); Est Glom Filt Rate - Afr Amer 41 mL/min (>60); Estimated Creatinine Clearance 30.96 ml/min; Glucose 239 mg/dL (74-106); Potassium 3.8 mmol/L (3.5-5.1); Sodium Level 140 mmol/L (136-145)
--- NOTE | 2019-02-12 11:05 | CT_ITS ---
STUDY: CT BRAIN WITHOUT CONTRAST REASON FOR EXAM: Female, 63 years old. CONFUSION AND DELIRIUM. DEMENTIA RADIATION DOSAGE (If Supplied By Facility): CTDIvol = ( 44.99 ) mGy, DLP = ( 812.98 ) mGycm TECHNIQUE: Transaxial CT imaging of the brain was performed without administration of intravenous contrast material. Individualized dose optimization techniques were used for this CT. COMPARISON: No relevant priors. FINDINGS: Normal soft tissue structures. Normal calvarium. Normal size ventricles and extra-axial spaces for the patient''s age. Normal white matter tracts of the cerebral hemispheres. Normal basal ganglia and thalami. Normal brainstem. Normal cerebellum. There is no intracranial hemorrhage. There are no findings of an acute ischemic infarction. Normal visualized paranasal sinuses. CT/Brain/Head without Contrast IMPRESSION: Normal unenhanced CT scan of the brain. Electronically Signed: Portia Onofre, at 13:01 EST Tel , Service support ,
[2019-02-12 11:09] LABS: Bacteria 0 SEEN /hpf (None Seen); Mucous, Urine 0 SEEN /hpf (<or=2+); Red Blood Cells-Urine 0 SEEN /hpf (0-5); Squamous Epithelial Cells - UA 0 SEEN /hpf (5-10); White Blood Cells 0 SEEN /hpf (0-5)
[2019-02-12 11:12] LABS: Color, Urine Yellow (Yellow); Glucose, Dipstick 100 mg/dl (Normal); Ketone-Dipstick 50 mg/dl (Negative); Leukocyte Esterase-Dipstick Negative /ul (Negative); Nitrite-Dipstick Negative (Negative); Occult Blood-Urine 10 /ul (Negative); Protein-Dipstick 30 mg/dl (Negative); Urine Bilirubin Dipstick Negative (Negative); Urine Clarity Clear (Clear); Urine Urobilinogen Normal (Normal)
--- NOTE | 2019-02-12 11:20 | RAD_ITS ---
STUDY: X-RAY CHEST REASON FOR EXAM: Female, 63 years old. Dementia. Unable to breathe without difficulty. TECHNIQUE: Frontal and lateral views of the chest. COMPARISON: February 25, 2018 FINDINGS: Low-volume inspiration with diffuse interstitial pattern and bibasilar atelectasis. There is no demonstrated pleural abnormality. Cardiomegaly. Normal mediastinum and rayna. Normal visualized pulmonary arteries. Normal visualized aortic arch and descending thoracic aorta. Normal visualized thoracic spine. Normal visualized ribs, clavicles, and shoulders. There is no demonstrated abnormality of the visualized soft tissue structures of the upper abdomen. RAD/Chest PA and Lateral IMPRESSION: Cardiomegaly with low volume inspiration. No acute finding. Electronically Signed: Ajit Salcido MD at 12:14 EST , Service support ,
--- NOTE | 2019-02-12 11:50 | NURSING ---
DR SERVIN IN ER
--- NOTE | 2019-02-12 12:21 | HP.PCM_ITS ---
Problem List (1) Acute encephalopathy Status: Acute (2) CKD (chronic kidney disease), stage III Status: Chronic (3) Hypertension Status: Chronic (4) Essential (primary) hypertension Status: Chronic (5) Hyperlipidemia Status: Chronic Qualifiers: Hyperlipidemia type: pure hypercholesterolemia Qualified Code(s): E78.00 - Pure hypercholesterolemia, unspecified; E78.0 - Pure hypercholesterolemia History of Present Illness Date of Admission: 02/12/19 Chief Complaint: confusion The patient is a 63 year old F with pmhx of takotsubo CM, NSTEMI, htn, hld, CKDIII who presented to the ER with confusion worsening over the past two days. She is currently not speaking or following commands. She has been more confused recently per her son and ex . Last night she was restless, shaking, and yelling in her sleep. She was only able to tell her son her name at one point today. Her family is concerned that she may have Alzheimers as she has had intermittent confusion over the past few years. Her son also noticed that she has not taken any medication today, and also has not been taking her home medications correctly as he has found the wrong number of pills in her pill boxes recently. [] Past Medical History Past Medical History (Chronic Problems): Chronic Problems (Last Reviewed 12/17/18 @ 13:59 by Ethan Hayes MD) Hypertension (Chronic) CKD (chronic kidney disease), stage III (Chronic) Nonobstructive atherosclerosis of coronary artery (Chronic) Takotsubo syndrome (Chronic) Essential (primary) hypertension (Chronic) Hyperlipidemia (Chronic) NSTEMI (non-ST elevated myocardial infarction) (Chronic 01/06/18) Medical History: Medical History (Last Reviewed 12/17/18 @ 13:59 by Ethan Hayes MD) Nonobstructive atherosclerosis of coronary artery (Chronic) I25.10 Takotsubo syndrome (Chronic) I51.81 Essential (primary) hypertension (Chronic) I10 Hyperlipidemia (Chronic) E78.5 NSTEMI (non-ST elevated myocardial infarction) (Chronic) Onset Date: 01/06/18 I21.4 Obesity E66.9 Psoriatic arthritis L40.50 Type 2 diabetes mellitus E11.9 Allergies codeine Allergy (Verified 12/17/18 13:33) Itching Home Medications: Ambulatory Orders Medication Instructions Recorded Alendronate Sodium [Fosamax] 70 mg PO QWEEK 01/06/18 Benzonatate 100 - 200 mg PO QHS PRN 01/06/18 Buspirone HCl 15 mg PO BID 01/06/18 Fluoxetine HCl 20 mg PO DINNER 01/06/18 Fluoxetine HCl 40 mg PO BREAKFAST 01/06/18 Glipizide 5 mg PO BID 01/06/18 Lisinopril/Hydrochlorothiazide 1 tab PO DAILY 01/06/18 [Zestoretic 11/23.5 Tablet] Meclizine HCl 25 mg PO 4X/DAY PRN 01/06/18 Meloxicam 15 mg PO DAILY 01/06/18 Multivitamins,Therapeutic 1 tab PO DAILY 01/06/18 [Multivitamin] Omeprazole 20 mg PO DAILY 01/06/18 Oxybutynin [Ditropan] 10 mg PO BID 01/06/18 Simvastatin 40 mg PO DAILY 01/06/18 Tizanidine HCl [Zanaflex] 4 mg PO PRN PRN 01/06/18 aspirin 81 mg tablet,delayed 81 mg PO DAILY@0800 #90 tab 02/20/18 release oxycodone-acetaminophen 5 mg-325 1 tab PO BID PRN tab 05/27/18 mg tablet carvedilol 3.125 mg tablet 3.125 mg PO BID #90 tab 07/10/18 Surgical History: Surgical History (Last Reviewed 12/17/18 @ 13:59 by Ethan Hayes MD) History of back surgery Z98.890 lower back History of carpal tunnel release of both wrists Z98.890 multiple times History of hysterectomy Z90.710 History of left heart catheterization Onset Date: 01/07/18 Z98.890 Surgical History: - - Partial hysterectomy, tonsillectomy, right oophorectomy. 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 Review of Systems Skin: Denies: Wounds Neurological: Reports: Confusion Unable to obtain accurate/complete ROS d/t: altered mental status VTE Information - Inpt Only VTE Present on Admission: No VTE Mechan Device Prophylaxis: None VTE Pharm Prophylaxis ordered?: Yes Patient Problems: Active and Suspected Problems (Last Reviewed 12/17/18 @ 13:59 by Ethan Hayes MD) Acute delirium (Acute) Sinus tachycardia by electrocardiogram (Acute) Acute encephalopathy (Acute) - Physical Exam Vitals/I&O's: Vital Signs Temp Pulse Resp BP Pulse Ox 99.8 F H 112 H 18 170/74 H 99 02/12/19 12:14 02/12/19 12:14 02/12/19 12:14 02/12/19 12:14 02/12/19 12:14 Oxygen Delivery Method Room Air Weight: 184 lb 11.958 oz Body Mass Index (BMI) 30.7 Intake and Output for Last 24 Hours 02/10/19 02/11/19 02/12/19 23:59 23:59 23:59 Intake Total 500 / 500 Balance 500 / 500 General: Alert, Confused, - - restless HEENT: Atraumatic, PERRLA, EOMI, Normocephalic Neck: Supple, No JVD, Negative Carotid Bruits Lungs: Clear to auscultation, Normal air movement Cardiovascular: Regular rate, No murmurs Abdomen: Bowel Sounds Present, Soft, Non Tender Extremities: No edema, Capillary Refill Less than 3 Seconds Skin: No rashes, No breakdown Musculoskeletal: No Tenderness to Palpation of Joints or Extremities Neurological: Cranial nerves II-XII grossly intact Psych/Mental Status: - - restless Laboratory Results 02/12/19 10:10: WBC 11.4 H, RBC 4.46, Hgb 13.0, Hct 39.3, MCV 88.1, MCH 29.1, MCHC 33.1, RDW Std Deviation 38.7, RDW Coeff of Gerhard 11.9, Plt Count 313, MPV 9.2, Immature Gran % (Auto) 0.800, Neut % (Auto) 86.4 H, Lymph % (Auto) 10.0 L, [place] % (Auto) 2.2, Eos % (Auto) 0.4, Baso % (Auto) 0.2, Absolute Neuts (auto) 9.9 H, Absolute Lymphs (auto) 1.14, Nucleated RBC % 0 02/12/19 10:10: Sodium 140, Potassium 3.8, Chloride 105, Carbon Dioxide 22.0, Anion Gap 13, BUN 27 H, Creatinine 1.63 H, Estim Creat Clear Calc 30.96, Est GFR (MDRD) Af Amer 41 L, Est GFR (MDRD) Non-Af 34 L, BUN/Creatinine Ratio 16.6, Glucose 239 H, Calcium 9.5 02/12/19 11:00: Urine Color Yellow, Urine Clarity Clear, Urine pH 7.0, Ur Specific [place] 1.010, Urine Protein 30 H, Urine Glucose (UA) 100 H, Urine Ketones 50 H, Urine Occult Blood 10 H, Urine Nitrite Negative, Urine Bilirubin Negative, Urine Urobilinogen Normal, Ur Leukocyte Esterase Negative, Urine RBC 0 SEEN, Urine WBC 0 SEEN, Ur Squamous Epith Cells 0 SEEN, Urine Bacteria 0 SEEN, Urine Mucus 0 SEEN Assessment/Plan All Active Problems (Last Reviewed 12/17/18 @ 13:59 by Ethan Hayes MD) Acute delirium (Acute) Sinus tachycardia by electrocardiogram (Acute) Acute encephalopathy (Acute) 1. Acute encephalopathy - metabolic vs toxic. May be somewhat dehydrated - BUN/Cr elevated but baseline unclear. No obvious infectious process at this ti me. Mild leukocytosis. UA negative. CXR negative. BP and pulse somewhat elevated. Glucose 239. CO2 and O2 ok. Pt has not been taking her home meds appropriately. Strong family hx of alzheimers dementia. Hold opiates, zanaflex, meclizine. 2. CKDIII with dehydration - hold LEYDI/HCTZ. baseline unclear. Gentle IV fluids. 3. GERD - ppi 4. osteoporosis with prior compression fx - on alendronate as o/p 5. hx takotsubo CM, NSTEMI - continue aspirin, coreg, statin DVT ppx: heparin DC planning: PTOT. may need placement. This patient was seen by Jamie Bautista PA-C under the supervision of Dr. Nena brooks.
--- NOTE | 2019-02-12 12:33 | ED.RN ---
pt continues to be confused and restless. trying to get out of bed. family and RNs redirecting patient, emotional support provided. pt repositioned for comfort. lights turned down, and noise kept at a minimum. pt appears to be resting better in bed. family remains at bedside. instructed to call for help if needed with patient. will continue to monitor.
--- NOTE | 2019-02-12 13:03 | NURSING ---
302 TERLETSKY ENCEPHALOPATHY
[2019-02-12] MEDS: 0.9% Saline Lock 10 ML Syringe IV (15:59)
[2019-02-12] MEDS: 0.9% Normal Saline 1,000 ML 100 ML IV (16:00)
[2019-02-12 16:46] LABS: Ammonia < 10.0 umol/L (11-32)
[2019-02-12 18:11] LABS: Bedside Glucose 268 mg/dL (70-110)
[2019-02-12] MEDS: Insulin Lispro 100 UNIT/ML INSULN.PEN SC (18:15)
--- NOTE | 2019-02-12 18:55 | RAD_ITS ---
STUDY: X-RAY - ABDOMEN/PELVIS REASON FOR EXAM: Female, 63 years old. PAIN, encephalopathy TECHNIQUE: Single AP view of the abdomen / pelvis. COMPARISON: None. FINDINGS: Normal visualized lung bases. There is an unremarkable bowel gas pattern. There is no demonstrated free abdominal air. The visualized liver, spleen and kidneys are grossly normal in size and morphology. There are calcified phleboliths in the pelvis. There are diffuse degenerative changes of the visualized lumbar spine. RAD/Abdomen Single View (Portable) IMPRESSION: No acute findings. No evidence of obstruction. Electronically Signed: Yash Montemayor DO at 19:21 EST Tel , Service support ,
[2019-02-12] MEDS: hydrALAZINE 20 MG/ML Vial 10 MG IV (20:22)
[2019-02-12] MEDS: proCHLORPERazine 10 MG/2 ML Vial 5 MG IV (20:50)
[2019-02-12] MEDS: Acetaminophen 650 MG Suppository RECTAL (22:02)
[2019-02-12] MEDS: Nystatin Powder 15gm Bottle 1 APPLIC TOPICAL (23:39)
[2019-02-12] MEDS: Heparin Injection (Vial) 5,000 UNIT/ML VIAL 5000 UNIT SC (23:47)
[2019-02-13] MEDS: Insulin Lispro 100 UNIT/ML INSULN.PEN SC ×4 (00:27→17:00)
[2019-02-13 00:36] LABS: Bedside Glucose 251 mg/dL (70-110)
[2019-02-13] MEDS: 0.9% Normal Saline 1,000 ML 100 ML IV ×3 (01:46→20:56)
[2019-02-13 01:52] VITALS: BP 143/84; PULSE 90; RESP 18; TEMP 38.2; O2SAT 96
[2019-02-13 05:40] LABS: Absolute Neutrophil Count 15.6 X10^3/uL (2.0-7.7); Basophil# 0.03 X10^3/uL; Basophil% 0.2 % (0-1); Eosinophil# 0.01 X10^3/uL; Eosinophils% 0.1 % (0-5); Hemoglobin 12.4 g/dL (12.0-15.0); Lymphocyte % 8.2 % (19-41); Mean Corp Hgb Conc 31.8 g/dL (32-36); Mean Corpuscular Hgb 28.2 pg (27.0-32.0); Mean Corpuscular Volume 88.8 fL (81-99); Mean Platelet Vol. 9.4 fl (6.2-12.0); Monocyte# 1.11 X10^3/uL; NRBC Flagged by Analyzer 0 % (0-5); Neutrophil # 15.64 X10^3/uL (2.7-7.7); Neutrophil % 85.1 % (47-70); Platelet Count 316 K/mm3 (150-450); RBC Distribution Width CV 12.5 % (11.6-14.6); RBC Distribution Width SD 40.7 fl (35.1-43.9); Red Blood Count 4.39 M/mm3 (4.2-5.4); White Blood Count 18.4 K/mm3 (4.4-11.0)
[2019-02-13 05:59] LABS: AST(SGOT) 45 U/L (15-37); Alanine Aminotransfer ALT/SGPT 22 U/L (13-56); Albumin, Serum 3.7 g/dL (3.2-5.0); Alkaline Phosphatase 83 U/L (45-117); Anion Gap 12 (5-15); BUN 30 mg/dL (7-18); BUN/Creat Ratio 20.1 RATIO (10-20); Calcium,Total 8.6 mg/dL (8.5-10.1); Chloride 113 mmol/L (98-107); Creatinine, Serum 1.49 mg/dL (0.55-1.02); EST Glomerular Filtration Rate 37 mL/min (>60); Est Glom Filt Rate - Afr Amer 45 mL/min (>60); Estimated Creatinine Clearance 33.87 ml/min; Globulin 3.7 g/dL (2.2-4.2); Glucose 195 mg/dL (74-106); Potassium 3.6 mmol/L (3.5-5.1); Protein, Total 7.4 g/dL (6.4-8.2); Sodium Level 143 mmol/L (136-145)
[2019-02-13 06:10] LABS: Bedside Glucose 211 mg/dL (70-110)
[2019-02-13 07:48] VITALS: BP 148/99; PULSE 103; RESP 18; TEMP 37.4; O2SAT 100
--- NOTE | 2019-02-13 07:48 | NURSING ---
blood pressure probably not accurate, pt restless, moving in bed, difficult to get BP
[2019-02-13] MEDS: Acetaminophen 650 MG Suppository RECTAL ×2 (08:16→17:03)
[2019-02-13] MEDS: Ondansetron 4 MG/2 ML Vial IV (08:17)
[2019-02-13] MEDS: 0.9% Saline Lock 10 ML Syringe IV ×2 (08:17→17:00)
--- NOTE | 2019-02-13 08:36 | NURSING ---
PT RESTLESS, CLIMBING OOB, SITTING DOWN/STANDING UP CONTINUOUSLY. PT CONFUSED. UNSTEADY ON FEET. RADIOLOGY HERE TO DO CXR, PT UNCOOPERATIVE WITH SAME. TEXT TO DR SERVIN.
[2019-02-13] MEDS: Haloperidol Lactate 5 MG/ML Vial IM ×3 (10:08→14:24)
--- NOTE | 2019-02-13 10:35 | CASEMGMT ---
HAMILTON COSTA Face to Face with patient for initial transition planning/care coordination assessment. HAMILTON COSTA introduced self and role at [facility]. Patient lying in bed, confused, significant other at bedside. Significant other willing to participate in assessment and is able to answer all questions appropriately. Care providers, pharmacy, and demographics verified. Significant other unsure of plans at discharge, pending course of treatment. Significant other states he has no further needs or concerns at this time. CM to follow for discharge planning needs that may arise. PCP: [facility] Specialists: Benton, pain; Freddy, wave guide assembler Preferred Pharmacy: [facility] Insurance: [employer] Prescription Benefit: yes Living Will/HPOA: none LNOK: son, daughter, significant other Living Arrangements: Patient lives with significant other in mobile home with 4 steps and railing to enter the home. Patient was independent at home. Transportation: son, significant other DME/HHC: Patient has shower chair, raised toilet, cane, rollator at home. Aide services through [facility] Tue and Thurs 2 hours per day. Patient has Passort or Waiver services but unsure of disease case manager. Per significant other, [facility] was working on place patient is assisted living. HAMILTON COSTA updated SW regarding Passport or Waiver services. Disposition Plan: TBD by course of treatment Mia YATES, RN, CM
[2019-02-13 10:55] LABS: Lipase 128 U/L (73-393)
[2019-02-13] MEDS: Heparin Injection (Vial) 5,000 UNIT/ML VIAL 5000 UNIT SC ×2 (11:58→22:15)
[2019-02-13] MEDS: Nystatin Powder 15gm Bottle 1 APPLIC TOPICAL ×2 (11:58→22:16)
[2019-02-13] MEDS: Menthol/Lanolin/Calamine/Znox 113 GM Tube 1 APPLIC TOPICAL ×2 (11:58→22:15)
[2019-02-13 12:10] LABS: Bedside Glucose 158 mg/dL (70-110)
--- NOTE | 2019-02-13 13:30 | CT_ITS ---
STUDY: CT ABDOMEN AND PELVIS WITH CONTRAST REASON FOR EXAM: Female, 63 years old. PAIN AND FEVER RADIATION DOSAGE (If Supplied By Facility): CTDIvol = ( 15.00 ) mGy, DLP = ( 1119.97 ) mGycm TECHNIQUE: Transaxial images were obtained from the dome of the diaphragm to the symphysis pubis without oral contrast. IV 100mL Isovue-300 was administered. Sagittal and coronal images were reconstructed. Individualized dose optimization techniques were used for this CT. COMPARISON: None. FINDINGS: Lung bases are clear. Heart size is normal. The liver is unremarkable. The gallbladder is unremarkable. 1.1 cm low-attenuation lesion in the inferior aspect of the spleen, nonspecific. Spleen is otherwise unremarkable. Moderate pancreatic atrophy. No focal lesion is identified. The adrenal glands are normal. 4.8 cm right renal cyst. 4.2 cm lower pole left renal cyst. The kidneys are otherwise unremarkable. No stones or hydronephrosis. The aorta is normal in caliber. There is no free fluid, free air, or organized collection. No bowel obstruction or inflammatory change. Normal appendix. Urinary bladder is unremarkable. Normal abdominal wall. Multiple chronic compression fractures of the lower thoracic and lumbar spine. Status post L5 vertebroplasty. Moderate sclerosis of the T9 vertebral body, concerning for metastatic disease. Chronic healed right pubic ramus fractures. CT/Abdomen/Pelvis WITH Contrast IMPRESSION: 1. No acute findings. 2. Nonspecific splenic hypodensity, not characterized on this study. Probable cyst or hemangioma. 3. Bilateral renal cysts. 4. Sclerotic T9 vertebral body, question bone metastases. Electronically Signed: Fátima Bucio MD at 16:37 EST Tel , Service support ,
--- NOTE | 2019-02-13 14:39 | CASEMGMT ---
Social Work Note SW attempted to call [facility] to determine if pt has PASSPORT services. Phone kept ringing and there was no answer. Mia Carpio REPORT SPECIALIST, ASSISTANT TO THE CEO
[2019-02-13 15:00] VITALS: BP 144/70; PULSE 91; RESP 18; TEMP 37.6; O2SAT 98
--- NOTE | 2019-02-13 15:36 | NURSING ---
Patient resting quietly in bed at this time. Attempting to take patient to CT at this time.
[2019-02-13 17:20] LABS: Bedside Glucose 165 mg/dL (70-110)
--- NOTE | 2019-02-13 18:06 | PN_ITS ---
Patient Problems: Active and Suspected Problems (Last Reviewed 12/17/18 @ 13:59 by Ethan Hayes MD) Acute delirium (Acute) Sinus tachycardia by electrocardiogram (Acute) Acute encephalopathy (Acute) Subjective: Patient was seen and examined today, she appeared restless and appeared to complain of some abdominal discomfort today, patient's KUB last night was negative for abnormality. I talked at length with patient's and daughter today as well as the patient's mutuel clerk, I told them that I am unsure why the patient is confused, I told them that I was unable to confirm that she is septic, she appears to have a rhinovirus infection however which was detected on her respiratory panel. Patient does not require any oxygen, I did order a CAT scan of the abdomen and pelvis today to try to rule out any pathology, the CAT scan of the abdomen pelvis showed no acute findings, there was a question of a bone metastasis at T9. I did give the patient Haldol today IM for agitation. Patient's blood pressures is better controlled today. - Physical Exam Vitals/I&O's: Vital Signs Temp Pulse Resp BP Pulse Ox 99.6 F H 91 18 144/70 H 98 02/13/19 15:00 02/13/19 15:00 02/13/19 15:00 02/13/19 15:00 02/13/19 15:00 Oxygen Delivery Method Room Air Weight: 79.6 kg Body Mass Index (BMI) 29.2 Intake and Output for Last 24 Hours 02/11/19 02/12/19 02/13/19 23:59 23:59 23:59 Intake Total 500 / 500 2600.00 / 2600.00 Output Total 200 / 200 Balance 300 / 300 2600.00 / 2600.00 General: Alert, Well developed, Well nourished, Confused HEENT: Atraumatic, PERRLA, EOMI, Normocephalic Oral: Moist Mucosa Neck: Supple, Trachea Midline, Thyroid Normal Size and Texture Lungs: Clear to auscultation, Normal air movement, No rhonchi, No wheeze, No rales Cardiovascular: Regular rate, Regular Rhythm, Normal S1, Normal S2, No murmurs Abdomen: Bowel Sounds Present, Soft, Non Tender, Non-Distended, No hernias noted Extremities: No clubbing, No cyanosis, No edema, Capillary Refill Less than 3 Seconds Skin: No rashes, No breakdown Musculoskeletal: No Tenderness to Palpation of Joints or Extremities Neurological: Cranial nerves II-XII grossly intact, Neuro grossly intact Psych/Mental Status: Restless, - - Patient is alert but confused, she is unable to answer questions and does not respond to verbal commands. Microbiology Past 72 Hours 02/12/19 23:30 Mucosa - Nasopharyngeal Respiratory Panel (PCR) - Final Rhinovirus Laboratory Results 02/12/19 16:07: POC Glucose 268 H 02/13/19 00:25: POC Glucose 251 H 02/13/19 05:02: Miscellaneous Test Pending 02/13/19 05:10: WBC 18.4 H, RBC 4.39, Hgb 12.4, Hct 39.0, MCV 88.8, MCH 28.2, MCHC 31.8 L, RDW Std Deviation 40.7, RDW Coeff of Gerhard 12.5, Plt Count 316, MPV 9.4, Immature Gran % (Auto) 0.400, Neut % (Auto) 85.1 H, Lymph % (Auto) 8.2 L, [place] % (Auto) 6.0, Eos % (Auto) 0.1, Baso % (Auto) 0.2, Absolute Neuts (auto) 15.6 H, Absolute Lymphs (auto) 1.50, Nucleated RBC % 0 02/13/19 05:10: Sodium 143, Potassium 3.6, Chloride 113 H, Carbon Dioxide 18.0 L , Anion Gap 12, BUN 30 H, Creatinine 1.49 H, Estim Creat Clear Calc 33.87, Est GFR (MDRD) Af Amer 45 L, Est GFR (MDRD) Non-Af 37 L, BUN/Creatinine Ratio 20.1 H , Glucose 195 H, Calcium 8.6, Total Bilirubin 0.80, AST 45 H, ALT 22, Alkaline Phosphatase 83, Total Protein 7.4, Albumin 3.7, Globulin 3.7, Albumin/Globulin Ratio 1.0 02/13/19 06:00: POC Glucose 211 H 02/13/19 10:20: Lipase 128 02/13/19 12:04: POC Glucose 158 H 02/13/19 16:56: POC Glucose 165 H Current Medications Acetaminophen (Tylenol) 650 mg RECTAL Q6H PRN PRN PRN Reason: pain/temp > 100.7F Last Admin: 02/13/19 17:03 Dose: 650 mg Documented by: Aspirin (Ecotrin) 81 mg PO DAILY@0800 [facility] Last Admin: 02/13/19 11:53 Dose: Not Given Documented by: Atorvastatin Calcium (Lipitor) 20 mg PO QHS [facility] Last Admin: 02/12/19 23:00 Dose: Not Given Documented by: Calamine/Phenol (Calmoseptine Ointment) 1 applic TOPICAL BID [facility]; Protocol Last Admin: 02/13/19 11:58 Dose: 1 applicatio Documented by: Carvedilol (Coreg) 3.125 mg PO BID [facility] Last Admin: 02/13/19 11:53 Dose: Not Given Documented by: Fluoxetine HCl (Prozac) 20 mg PO DINNER [facility] Last Admin: 02/13/19 17:00 Dose: Not Given Documented by: Fluoxetine HCl (Prozac) 40 mg PO BREAKFAST [facility] Last Admin: 02/13/19 11:53 Dose: Not Given Documented by: Glucagon () 1 mg IM .X1 PRN PRN Reason: Hypoglycemia Heparin Sodium (Porcine) (Heparin Na) 5,000 unit SC Q12 [facility] Last Admin: 02/13/19 11:58 Dose: 5,000 unit Documented by: Hydralazine HCl (Apresoline Iv) 10 mg IV Q6H PRN PRN PRN Reason: BLOOD PRESSURE Last Admin: 02/12/19 20:22 Dose: 10 mg Documented by: Hydrochlorothiazide () 12.5 mg PO DAILY [facility] Last Admin: 02/13/19 11:53 Dose: Not Given Documented by: Sodium Chloride () 1,000 mls @ 100 mls/hr IV .Q10H [facility] Last Infusion: 02/13/19 16:10 Dose: 100 mls/hr Documented by: Insulin Human Lispro (Humalog Kwikpen (Bkc)) 0 unit SC Q6 [facility]; Protocol Last Admin: 02/13/19 17:00 Dose: 3 units Documented by: Lisinopril (Zestril) 10 mg PO DAILY [facility] Last Admin: 02/13/19 11:54 Dose: Not Given Documented by: Nystatin (Mycostatin Powder) 1 applic TOPICAL BID [facility]; Protocol Last Admin: 02/13/19 11:58 Dose: 1 applicatio Documented by: Ondansetron HCl (Zofran) 4 mg IV Q6H PRN PRN PRN Reason: NAUSEA/VOMITING Last Admin: 02/13/19 08:17 Dose: 4 mg Documented by: Pantoprazole Sodium (Protonix) 20 mg PO DAILY [facility]I Last Admin: 02/13/19 11:54 Dose: Not Given Documented by: Sodium Chloride () 10 - 40 ml IV UD PRN PRN Reason: SALINE FLUSH Last Admin: 02/13/19 17:00 Dose: 10 ml Documented by: Medical Necessity - Tobacco Use Smoking Status: Former smoker Tobacco Use: Cigarettes Assessment/Plan All Active Problems (Last Reviewed 12/17/18 @ 13:59 by Ethan Hayes MD) Acute delirium (Acute) Sinus tachycardia by electrocardiogram (Acute) Acute encephalopathy (Acute) #1 encephalopathy-etiology unclear, possibly metabolic in nature, continue to provide support including IV fluids #2 abdominal discomfort-etiology unclear, CT of the abdomen pelvis was unable to detect any acute findings #3 essential hypertension-continue to monitor, Apresoline IV as needed for hypertension #4 chronic kidney disease stage III #5 type 2 diabetes #6 rhinovirus tracheobronchitis #7 leukocytosis-etiology unclear, recheck labs tomorrow #8 nonobstructive coronary artery disease #9 osteoarthritis #10 chronic pain #11 chronic depression #12 sclerotic T9 vertebral body-I will go over this with radiology tomorrow, additional studies may need to be performed Code Visit Inpatient E&M: 16147 Subs Hosp L2
[2019-02-13 22:12] VITALS: BP 146/80; PULSE 94; RESP 18; TEMP 37.6; O2SAT 94
[2019-02-13] MEDS: Atorvastatin Calcium 20 MG Tablet PO (22:15)
[2019-02-13] MEDS: Carvedilol 3.125 MG TABLET PO (22:15)
[2019-02-14 00:46] LABS: Bedside Glucose 126 mg/dL (70-110)
[2019-02-14 05:04] VITALS: BP 147/81; PULSE 92; RESP 20; TEMP 37.7; O2SAT 92
[2019-02-14] MEDS: Acetaminophen 325 MG Tablet 650 MG PO ×2 (05:08→16:22)
[2019-02-14 05:26] LABS: Bedside Glucose 139 mg/dL (70-110)
[2019-02-14 05:31] LABS: Absolute Lymphocyte Count 1.59 X10^3/uL (0.83-4.51); Absolute Neutrophil Count 12.3 X10^3/uL (2.0-7.7); Basophil# 0.01 X10^3/uL; Basophil% 0.1 % (0-1); Eosinophil# 0.04 X10^3/uL; Eosinophils% 0.3 % (0-5); Hematocrit 33.4 % (37-47); Hemoglobin 10.7 g/dL (12.0-15.0); Lymphocyte # 1.59 X10^3/ul (4.0); Lymphocyte % 10.7 % (19-41); Mean Corpuscular Hgb 28.9 pg (27.0-32.0); Mean Corpuscular Volume 90.3 fL (81-99); Mean Platelet Vol. 9.2 fl (6.2-12.0); Monocyte# 0.88 X10^3/uL; Monocyte% 5.9 % (0-10); NRBC Flagged by Analyzer 0 % (0-5); Neutrophil # 12.28 X10^3/uL (2.7-7.7); Neutrophil % 82.5 % (47-70); Platelet Count 245 K/mm3 (150-450); RBC Distribution Width CV 12.9 % (11.6-14.6); RBC Distribution Width SD 42.1 fl (35.1-43.9); White Blood Count 14.9 K/mm3 (4.4-11.0)
[2019-02-14] MEDS: 0.9% Normal Saline 1,000 ML 100 ML IV ×2 (06:45→16:21)
[2019-02-14] MEDS: Ondansetron 4 MG/2 ML Vial IV (06:49)
[2019-02-14 09:00] VITALS: BP 158/88; PULSE 98; RESP 18; TEMP 36.5; O2SAT 98
[2019-02-14] MEDS: Pantoprazole Sodium 20 MG Tablet PO ×2 (09:02→16:24)
[2019-02-14] MEDS: Lisinopril 10 MG Tablet PO (09:02)
[2019-02-14] MEDS: hydroCHLOROthiazide 12.5mg 12.5 MG PO (09:02)
[2019-02-14] MEDS: Carvedilol 3.125 MG TABLET PO ×2 (09:02→22:20)
[2019-02-14] MEDS: Aspirin E.C. 81 MG Tablet PO (09:03)
[2019-02-14] MEDS: FLUoxetine 20 MG Capsule 40 MG PO (09:03)
[2019-02-14] MEDS: Heparin Injection (Vial) 5,000 UNIT/ML VIAL 5000 UNIT SC ×2 (09:03→22:19)
[2019-02-14] MEDS: Menthol/Lanolin/Calamine/Znox 113 GM Tube 1 APPLIC TOPICAL ×2 (09:04→22:23)
[2019-02-14] MEDS: Nystatin Powder 15gm Bottle 1 APPLIC TOPICAL ×2 (09:04→22:19)
--- NOTE | 2019-02-14 09:34 | CASEMGMT ---
Social Work Note SW received call from Radha Gupta at [facility] requesting update. SW placed a call back to Radha Gupta and updated her on pt's admission to [facility]. Mia Carpio DISH CARRIER, RN ACUTE DIALYSIS
[2019-02-14] MEDS: Insulin Lispro 100 UNIT/ML INSULN.PEN SC (12:03)
[2019-02-14 12:10] LABS: Bedside Glucose 157 mg/dL (70-110)
[2019-02-14 14:27] VITALS: BP 147/84; PULSE 91; RESP 18; TEMP 37.2; O2SAT 98
[2019-02-14] MEDS: Glucerna Shake 120 ML LIQUID PO ×3 (14:31→22:20)
[2019-02-14] MEDS: FLUoxetine 20 MG Capsule PO (16:26)
[2019-02-14 17:15] LABS: Bedside Glucose 147 mg/dL (70-110)
[2019-02-14] MEDS: Meloxicam 7.5 MG Tablet PO (17:49)
--- NOTE | 2019-02-14 18:59 | PN_ITS ---
Patient Problems: Active and Suspected Problems (Last Reviewed 12/17/18 @ 13:59 by Ethan Haeys MD) Acute delirium (Acute) Sinus tachycardia by electrocardiogram (Acute) Acute encephalopathy (Acute) Subjective: Patient was seen and examined today, I talked with her family members who were in the room today, she appears much more alert today and is able to carry on a conversation and recognize people in the room. Patient's white blood cell count today was 14.9 and her high temp today was 100. - Physical Exam Vitals/I&O's: Vital Signs Temp Pulse Resp BP Pulse Ox 99.0 F 91 18 147/84 H 98 02/14/19 14:27 02/14/19 14:27 02/14/19 14:27 02/14/19 14:27 02/14/19 14:27 Oxygen Delivery Method Room Air Weight: 79.6 kg Body Mass Index (BMI) 29.2 Intake and Output for Last 24 Hours 02/12/19 02/13/19 02/14/19 23:59 23:59 23:59 Intake Total 500 / 500 3390.00 / 3390.00 2981.67 / 2981.67 Output Total 200 / 200 Balance 300 / 300 3390.00 / 3390.00 2981.67 / 2981.67 General: Alert, Cooperative, No apparent distress, Well developed, - - Patient is oriented as to place and self HEENT: Atraumatic, PERRLA, EOMI, Normocephalic Oral: Moist Mucosa Neck: Supple, Trachea Midline, Thyroid Normal Size and Texture Lungs: Clear to auscultation, Normal air movement, No rhonchi, No wheeze, No rales Cardiovascular: Regular rate, Regular Rhythm, Normal S1, Normal S2, No murmurs Abdomen: Bowel Sounds Present, Soft, Non Tender, Non-Distended Extremities: No clubbing, No cyanosis, No edema, Capillary Refill Less than 3 Seconds Skin: No rashes, No breakdown Musculoskeletal: No Tenderness to Palpation of Joints or Extremities Neurological: Cranial nerves II-XII grossly intact, Neuro grossly intact, Sensory exam intact to light touch and pain, Coordination normal Psych/Mental Status: Appropriate, Flat Affect Microbiology Past 72 Hours 02/12/19 23:30 Mucosa - Nasopharyngeal Respiratory Panel (PCR) - Final Rhinovirus Laboratory Results 02/14/19 00:25: POC Glucose 126 H 02/14/19 05:00: WBC 14.9 H, RBC 3.70 L, Hgb 10.7 L, Hct 33.4 L, MCV 90.3, MCH 28.9, MCHC 32.0, RDW Std Deviation 42.1, RDW Coeff of Gerhard 12.9, Plt Count 245, MPV 9.2, Immature Gran % (Auto) 0.500, Neut % (Auto) 82.5 H, Lymph % (Auto) 10.7 L, Dougherty % (Auto) 5.9, Eos % (Auto) 0.3, Baso % (Auto) 0.1, Absolute Neuts (auto) 12.3 H, Absolute Lymphs (auto) 1.59, Nucleated RBC % 0 02/14/19 05:13: POC Glucose 139 H 02/14/19 12:02: POC Glucose 157 H 02/14/19 16:56: POC Glucose 147 H Current Medications Acetaminophen (Tylenol) 650 mg PO Q6H PRN PRN PRN Reason: Pain 1-10/10 /fever Last Admin: 02/14/19 16:22 Dose: 650 mg Documented by: Hydrocodone Bitart/Acetaminophen (Spangler 5mg-325mg) 1 - 2 tablet PO Q6H PRN PRN PRN Reason: Pain Score 1-10/10 Aspirin (Ecotrin) 81 mg PO DAILY@0800 [facility] Last Admin: 02/14/19 09:03 Dose: 81 mg Documented by: Atorvastatin Calcium (Lipitor) 20 mg PO QHS [facility] Last Admin: 02/13/19 22:15 Dose: 20 mg Documented by: Calamine/Phenol (Calmoseptine Ointment) 1 applic TOPICAL BID [facility]; Protocol Last Admin: 02/14/19 09:04 Dose: 1 applicatio Documented by: Carvedilol (Coreg) 3.125 mg PO BID [facility] Last Admin: 02/14/19 09:02 Dose: 3.125 mg Documented by: Fluoxetine HCl (Prozac) 20 mg PO DINNER [facility] Last Admin: 02/14/19 16:26 Dose: 20 mg Documented by: Fluoxetine HCl (Prozac) 40 mg PO BREAKFAST [facility] Last Admin: 02/14/19 09:03 Dose: 40 mg Documented by: Glucagon () 1 mg IM .X1 PRN PRN Reason: Hypoglycemia Haloperidol Lactate (Haldol) 5 mg IM Q4H PRN PRN PRN Reason: SEVERE AGITATION Heparin Sodium (Porcine) (Heparin Na) 5,000 unit SC Q12 [facility] Last Admin: 02/14/19 09:03 Dose: 5,000 unit Documented by: Hydralazine HCl (Apresoline Iv) 10 mg IV Q6H PRN PRN PRN Reason: BLOOD PRESSURE Last Admin: 02/12/19 20:22 Dose: 10 mg Documented by: Hydrochlorothiazide () 12.5 mg PO DAILY [facility] Last Admin: 02/14/19 09:02 Dose: 12.5 mg Documented by: Sodium Chloride () 1,000 mls @ 100 mls/hr IV .Q10H [facility] Last Admin: 02/14/19 16:21 Dose: 100 mls/hr Documented by: Ibuprofen (Motrin) 400 mg PO Q6H PRN PRN PRN Reason: Pain Score 1-10/10 Insulin Human Lispro (Humalog Kwikpen (Bkc)) 0 unit SC Q6 [facility]; Protocol Last Admin: 02/14/19 17:23 Dose: Not Given Documented by: Lisinopril (Zestril) 10 mg PO DAILY [facility] Last Admin: 02/14/19 09:02 Dose: 10 mg Documented by: Meloxicam (Mobic) 7.5 mg PO DAILY [facility] Last Admin: 02/14/19 17:49 Dose: 7.5 mg Documented by: Nutritional Formula (Lactose Free) (Glucerna Shake) 120 ml PO 4X/DAY [facility] Last Admin: 02/14/19 17:48 Dose: 120 ml Documented by: Nystatin (Mycostatin Powder) 1 applic TOPICAL BID [facility]; Protocol Last Admin: 02/14/19 09:04 Dose: 1 applicatio Documented by: Ondansetron HCl (Zofran) 4 mg IV Q6H PRN PRN PRN Reason: NAUSEA/VOMITING Last Admin: 02/14/19 06:49 Dose: 4 mg Documented by: Pantoprazole Sodium (Protonix) 20 mg PO DAILY [facility] Last Admin: 02/14/19 16:24 Dose: 20 mg Documented by: Sodium Chloride () 10 - 40 ml IV UD PRN PRN Reason: SALINE FLUSH Last Admin: 02/13/19 17:00 Dose: 10 ml Documented by: Medical Necessity - Tobacco Use Smoking Status: Former smoker Tobacco Use: Cigarettes Assessment/Plan All Active Problems (Last Reviewed 12/17/18 @ 13:59 by Ethan Hayes MD) Acute delirium (Acute) Sinus tachycardia by electrocardiogram (Acute) Acute encephalopathy (Acute) #1 encephalopathy-etiology unclear, possibly metabolic in nature, continue to provide support including IV fluids #2 abdominal discomfort-etiology unclear, this appears to have improved since yesterday, continue to monitor #3 essential hypertension-continue to monitor, patient was placed on Coreg today, I have held her lisinopril HCT for now due to her elevated renal functions #4 chronic kidney disease stage III #5 type 2 diabetes #6 rhinovirus tracheobronchitis #7 leukocytosis-etiology unclear, this appears to be resolving #8 nonobstructive coronary artery disease #9 osteoarthritis #10 chronic pain-patient requests to be placed back on pain medicine, I have placed her on Vicodin and a lower dose of meloxicam today than her home dose. #11 chronic depression #12 sclerotic T9 vertebral body-probably secondary to her previous melquiades tebroplasty Code Visit Inpatient E&M: 33667 Subs Hosp L2
[2019-02-14] MEDS: Ibuprofen 400 MG Tablet PO (20:16)
[2019-02-14 20:31] VITALS: BP 140/77; PULSE 81; RESP 18; TEMP 36.6; O2SAT 99
[2019-02-14] MEDS: Atorvastatin Calcium 20 MG Tablet PO (22:20)
[2019-02-14 22:31] LABS: Bedside Glucose 156 mg/dL (70-110)
[2019-02-15] MEDS: Acetaminophen 325 MG Tablet 650 MG PO ×2 (00:32→15:03)
[2019-02-15] MEDS: MELATONIN 10 MG TABLET PO (00:32)
[2019-02-15 00:41] LABS: Bedside Glucose 137 mg/dL (70-110)
[2019-02-15] MEDS: 0.9% Normal Saline 1,000 ML 100 ML IV (02:15)
[2019-02-15 02:31] VITALS: BP 142/79; PULSE 79; RESP 18; TEMP 36.8; O2SAT 99
[2019-02-15] MEDS: Ibuprofen 400 MG Tablet PO (06:44)
[2019-02-15 06:46] LABS: Bedside Glucose 126 mg/dL (70-110)
[2019-02-15 07:11] LABS: Absolute Lymphocyte Count 2.41 X10^3/uL (0.83-4.51); Absolute Neutrophil Count 6.2 X10^3/uL (2.0-7.7); Basophil# 0.02 X10^3/uL; Basophil% 0.2 % (0-1); Eosinophil# 0.25 X10^3/uL; Eosinophils% 2.6 % (0-5); Hematocrit 31.2 % (37-47); Hemoglobin 9.9 g/dL (12.0-15.0); Lymphocyte # 2.41 X10^3/ul (4.0); Mean Corp Hgb Conc 31.7 g/dL (32-36); Mean Corpuscular Hgb 28.7 pg (27.0-32.0); Mean Corpuscular Volume 90.4 fL (81-99); Mean Platelet Vol. 9.4 fl (6.2-12.0); Monocyte# 0.73 X10^3/uL; Monocyte% 7.6 % (0-10); NRBC Flagged by Analyzer 0 % (0-5); Neutrophil # 6.18 X10^3/uL (2.7-7.7); Neutrophil % 64.2 % (47-70); Platelet Count 203 K/mm3 (150-450); RBC Distribution Width CV 12.6 % (11.6-14.6); RBC Distribution Width SD 41.6 fl (35.1-43.9); Red Blood Count 3.45 M/mm3 (4.2-5.4); White Blood Count 9.6 K/mm3 (4.4-11.0)
[2019-02-15 07:40] LABS: Anion Gap 7 (5-15); BUN 19 mg/dL (7-18); Calcium,Total 7.6 mg/dL (8.5-10.1); Chloride 112 mmol/L (98-107); Creatinine, Serum 0.95 mg/dL (0.55-1.02); EST Glomerular Filtration Rate 63 mL/min (>60); Est Glom Filt Rate - Afr Amer 76 mL/min (>60); Estimated Creatinine Clearance 53.13 ml/min; Glucose 115 mg/dL (74-106); Potassium 2.9 mmol/L (3.5-5.1); Sodium Level 143 mmol/L (136-145)
[2019-02-15 08:38] VITALS: BP 155/81; PULSE 76; RESP 18; TEMP 36.4; O2SAT 97
[2019-02-15] MEDS: Carvedilol 3.125 MG TABLET PO (08:42)
[2019-02-15] MEDS: FLUoxetine 20 MG Capsule 40 MG PO (08:42)
[2019-02-15] MEDS: Lisinopril 10 MG Tablet PO (08:43)
[2019-02-15] MEDS: Heparin Injection (Vial) 5,000 UNIT/ML VIAL 5000 UNIT SC (08:43)
[2019-02-15] MEDS: Aspirin E.C. 81 MG Tablet PO (08:43)
[2019-02-15] MEDS: hydroCHLOROthiazide 12.5mg 12.5 MG PO (08:43)
[2019-02-15] MEDS: Glucerna Shake 120 ML LIQUID PO (08:43)
[2019-02-15] MEDS: Nystatin Powder 15gm Bottle 1 APPLIC TOPICAL (08:43)
[2019-02-15] MEDS: Menthol/Lanolin/Calamine/Znox 113 GM Tube 1 APPLIC TOPICAL (08:45)
[2019-02-15] MEDS: Meloxicam 7.5 MG Tablet PO (08:45)
[2019-02-15 11:50] LABS: Bedside Glucose 141 mg/dL (70-110)
--- NOTE | 2019-02-15 15:02 | DCINST_ITS ---
- Discharge Diagnoses Current Active Problems: Current Active and Chronic Problems (Last Reviewed 12/17/18 @ 13:59 by Ethan Hayes MD) Acute delirium (Acute) Sinus tachycardia by electrocardiogram (Acute) Hypertension (Chronic) Acute encephalopathy (Acute) CKD (chronic kidney disease), stage III (Chronic) You will use the following diet at home:: Calorie/Carbohydrate Controlled (specify 1200, 1400, etc) - 1800 arnulfo Your food should be the consistency of: Regular Your liquids should be the consistency of: Regular/Thin Discharge Activity: Return to Normal Activity Weight Bearing Status: Full weight bearing Allergies/Adverse Reactions: Allergies codeine Allergy (Verified 12/17/18 13:33) Itching Medications to take at Discharge Alendronate Sodium [Fosamax] 70 mg PO QWEEK 01/06/18 Buspirone HCl 15 mg PO BID 01/06/18 Fluoxetine HCl 40 mg PO BREAKFAST 01/06/18 Glipizide 10 mg PO DAILY 01/06/18 Omeprazole 20 mg PO DAILY 01/06/18 Oxybutynin [Ditropan] 10 mg PO BID 01/06/18 Simvastatin 40 mg PO DAILY 01/06/18 carvedilol 3.125 mg tablet 3.125 mg PO BID #90 tab 07/10/18 Ergocalciferol (Vitamin D2) [Vitamin D2] 50,000 unit PO QWEEK 02/12/19 Turmeric 400 mg PO 02/12/19 Acetaminophen [Tylenol Tablet] 650 mg PO Q6H PRN PRN tab 02/15/19 Gabapentin [Neurontin] 100 mg PO TID #1 cap 02/15/19 Lisinopril 20 mg PO DAILY #30 tab 02/15/19 Meloxicam [Mobic] 7.5 mg PO DAILY #30 tab 02/15/19 Nystatin Powder [Mycostatin Powder] 1 applic TOPICAL BID bottle 02/15/19 Oxycodone [Oxyir] 5 - 10 mg PO Q6H PRN PRN 7 Days #30 tab 02/15/19 The following prescriptions were given: Lisinopril 20 mg PO DAILY #30 tab Prescription Printed Meloxicam [Mobic] 7.5 mg PO DAILY #30 tab Prescription Printed Gabapentin [Neurontin] 100 mg PO TID #1 cap Oxycodone [Oxyir] 5 - 10 mg PO Q6H PRN PRN 7 Days #30 tab PRN Reason: Pain Score 1-10/10 Prescription Printed Primary Care Physician: Doug Florence MD [Primary Care Provider] - Please follow up with your Primary Care Physician in: in 2 weeks Test Results: Test results from this visit will be discussed in further detail at your follow- up appointment, if applicable. Please Follow Up With: Oliver Bhardwaj MD When: call for instructions and appointment
[2019-02-15 15:08] VITALS: BP 138/76; PULSE 70; RESP 18; TEMP 36.7; O2SAT 98
--- NOTE | 2019-02-17 10:47 | CASEMGMT ---
Social Work Note Pt discharged home over the weekend. DAVIS placed a call to Pt's CM Radha Adams and left message informing her pt was discharged over the weekend. DAVIS faxed discharge paperwork to Radah Adams. 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
--- NOTE | 2019-02-17 15:36 | DS.PCM_ITS ---
Discharge Date and Diagnosis Date of Admission: 02/12/19 Date of Discharge: 02/15/19 - Primary Discharge Diagnosis #1 encephalopathy-etiology unclear, possibly metabolic in nature, possibly secondary to polypharmacy #2 abdominal discomfort-etiology unclear #3 essential hypertension #4 chronic kidney disease stage III #5 type 2 diabetes #6 rhinovirus tracheobronchitis #7 leukocytosis #8 nonobstructive coronary artery disease #9 osteoarthritis #10 chronic pain #11 chronic depression #12 sclerotic T9 vertebral body-probably secondary to her previous vertebroplasty #13 dehydration - Secondary Discharge Diagnosis Chronic Problems (Last Reviewed 12/17/18 @ 13:59 by Ethan Hayes MD) Hypertension (Chronic) CKD (chronic kidney disease), stage III (Chronic) Nonobstructive atherosclerosis of coronary artery (Chronic) Takotsubo syndrome (Chronic) Essential (primary) hypertension (Chronic) Hyperlipidemia (Chronic) NSTEMI (non-ST elevated myocardial infarction) (Chronic 01/06/18) Hospital Course and Treatment Operations: None Procedures: None Summary of Care Provided: The patient is a 63 year old F who was seen in the emergency room at [facility] after being brought in by family due to a decreased level of consciousness. Work-up in the emergency room included labs which showed a slightly elevated white blood cell count at 11.4, chemistry was remarkable for creatinine of 1.63, BUN was 27, and glucose was 239. CT of the head did not show any acute process and there was no sign of any stroke on the CAT scan. Allison castrejon was admitted to [place] [id number], she remained confused and agitated at times for approximately 48 hours, she also complained of abdominal discomfort, CT of the abdomen was carried out but did not show any acute process. Patient finally became less confused and then returned to her normal mental status during her hospitalization. It was unknown what caused the encephalopathy-it was theorized it could be secondary to polypharmacy as the patient takes medication for back pain. On 02/15/2019, patient was seen and examined felt to be in stable condition for discharge home: On examination she appeared in good health and spirits. Vital signs as documented. Skin warm and dry and without overt rashes. Neck without JVD. Lungs clear. Heart exam notable for regular rhythm, normal sounds and absence of murmurs, rubs or gallops. Abdomen unremarkable and without evidence of organomegaly, masses, or abdominal aortic enlargement. Extremities nonedematous. Neuro: Cranial nerves II through XII are grossly intact, no focal motor deficits were noted, sensation to light touch and pinprick is intact. Psych: Patient is alert and oriented x3, she does not appear anxious or depressed - Physical Exam Vitals/I&O's: Vital Signs Temp Pulse Resp BP Pulse Ox 98.1 F 70 18 138/76 H 98 02/15/19 15:08 02/15/19 15:08 02/15/19 15:08 02/15/19 15:08 02/15/19 15:08 Oxygen Delivery Method Room Air Weight: 79.6 kg Body Mass Index (BMI) 29.2 Intake and Output for Last 24 Hours 02/15/19 02/16/19 02/17/19 23:59 23:59 23:59 Intake Total 1935 / 1935 Output Total 300 / 300 Balance 1635 / 1635 Microbiology Past 72 Hours 02/12/19 22:29 Blood Culture (Wb) - Right Hand Blood Culture - Preliminary No growth in 48 hours. 02/12/19 22:18 Blood Culture (Wb) - Left Wrist Blood Culture - Preliminary No growth in 48 hours. 02/14/19 15:42 Stool Enteric Bacteriology - Final Discharge Activity: Return to Normal Activity Weight Bearing Status: Full weight bearing Home Medications: Medications to take at Discharge Alendronate Sodium [Fosamax] 70 mg PO QWEEK 01/06/18 Buspirone HCl 15 mg PO BID 01/06/18 Fluoxetine HCl 40 mg PO BREAKFAST 01/06/18 Glipizide 10 mg PO DAILY 01/06/18 Omeprazole 20 mg PO DAILY 01/06/18 Oxybutynin [Ditropan] 10 mg PO BID 01/06/18 Simvastatin 40 mg PO DAILY 01/06/18 carvedilol 3.125 mg tablet 3.125 mg PO BID #90 tab 07/10/18 Ergocalciferol (Vitamin D2) [Vitamin D2] 50,000 unit PO QWEEK 02/12/19 Turmeric 400 mg PO 02/12/19 Acetaminophen [Tylenol Tablet] 650 mg PO Q6H PRN PRN tab 02/15/19 Gabapentin [Neurontin] 100 mg PO TID #1 cap 02/15/19 Lisinopril 20 mg PO DAILY #30 tab 02/15/19 Meloxicam [Mobic] 7.5 mg PO DAILY #30 tab 02/15/19 Nystatin Powder [Mycostatin Powder] 1 applic TOPICAL BID bottle 02/15/19 Oxycodone [Oxyir] 5 - 10 mg PO Q6H PRN PRN 7 Days #30 tab 02/15/19 Following Prescrptions Were Given to Patient: Lisinopril 20 mg PO DAILY #30 tab Prescription Printed Meloxicam [Mobic] 7.5 mg PO DAILY #30 tab Prescription Printed Gabapentin [Neurontin] 100 mg PO TID #1 cap Oxycodone [Oxyir] 5 - 10 mg PO Q6H PRN PRN 7 Days #30 tab PRN Reason: Pain Score 1-10/10 Prescription Printed Primary Care Physician: Doug Florence MD [Primary Care Provider] - Please follow up with your Primary Care Physician in: in 2 weeks Please Follow Up With: Oliver Bhardwaj MD When: call for instructions and appointment Disposition: Home Minutes spent on discharge:: 33 Patient Condition:: Stable Medical Necessity - Tobacco Use Smoking Status: Former smoker Tobacco Use: Cigarettes Meaningful Use Info Meaningful Use Diagnoses (Choose all that apply): None applicable Code Visit Inpatient E&M: 42918 Disch Hosp
== END 2019-02-15 15:32 | disposition home or self-care (01) | DRG 93 ==
LOC: ED 11:45 → MS3 12:49
PROVIDERS: Admitting Provider Internal Medicine; Emergency Provider Emergency Medicine; Family Provider Family Medicine; PCP Family Medicine; Referring Provider Internal Medicine; Visit Provider Internal Medicine
DX: G92 Toxic encephalopathy (principal); T50.915A Adverse effect of multiple unspecified drugs, medicaments and biological substances, initial encounter; N18.3 Chronic kidney disease, stage 3 (moderate); E11.22 Type 2 diabetes mellitus with diabetic chronic kidney disease; I12.9 Hypertensive chronic kidney disease with stage 1 through stage 4 chronic kidney disease, or unspecified chronic kidney disease; J20.6 Acute bronchitis due to rhinovirus; E86.0 Dehydration; I25.10 Atherosclerotic heart disease of native coronary artery without angina pectoris; M19.90 Unspecified osteoarthritis, unspecified site; G89.29 Other chronic pain; F32.9 Major depressive disorder, single episode, unspecified; D72.829 Elevated white blood cell count, unspecified; I25.2 Old myocardial infarction; E78.5 Hyperlipidemia, unspecified; Z79.82 Long term (current) use of aspirin; Z87.310 Personal history of (healed) osteoporosis fracture; Z87.891 Personal history of nicotine dependence
CPT/HCPCS: 36415; 70450; 71046; 74018; 74177; 80048; 80053; 81001; 82140; 82962; 83690; 85025; 87040; 87506; 87633; 92526; 92610; 93005; 97110; 97116; 97162; 97166; 97530; 97535; 99285; J7030; P9612; Q9967; A4216; J2405

== ENCOUNTER → 2019-02-19 14:38 | Outpatient (CLI) | payer MEDICARE, SELFPAY ==
[2019-02-12 14:45] VITALS: BMI 29.2
[2019-02-19 16:58] LABS: Anion Gap 8 (5-15); BUN 12 mg/dL (7-18); BUN/Creat Ratio 12.2 RATIO (10-20); Calcium,Total 9.1 mg/dL (8.5-10.1); Chloride 109 mmol/L (98-107); Creatinine, Serum 0.98 mg/dL (0.55-1.02); EST Glomerular Filtration Rate 60 mL/min (>60); Est Glom Filt Rate - Afr Amer 73 mL/min (>60); Glucose 97 mg/dL (74-106); Sodium Level 142 mmol/L (136-145)
== END ==
PROVIDERS: Family Provider Family Medicine; PCP Family Medicine; Visit Provider Family Medicine
DX: I10 Essential (primary) hypertension (principal)
CPT/HCPCS: 36415; 80048

== ENCOUNTER → 2019-03-03 16:18 | Outpatient (CLI) | payer MEDICARE, SELFPAY ==
[2019-02-12 14:45] VITALS: BMI 29.2
--- NOTE | 2019-03-03 16:47 | RAD_ITS ---
HISTORY: CHRONIC KNEE PAIN ADDITIONAL HISTORY: None provided. TECHNIQUE: Right knee 4 views Number of images including paperwork: 4 COMPARISON: None FINDINGS: BONES: No acute fracture. Enthesopathic changes at the quadriceps tendon insertion. JOINTS: No subluxation. Mild joint space narrowing with small periarticular osteophytes. SOFT TISSUES: No distinct foreign body. Vascular calcifications. RAD/Knee 4 or More Views IMPRESSION: No acute osseous abnormality. Mild degenerative changes. at 2347 Reported and signed by: Shanna Stafford MD Electronically Signed: Shanna Stafford MD at 23:47 EST Tel , Service support ,
[2019-03-03 17:35] LABS: Anion Gap 6 (5-15); BUN 21 mg/dL (7-18); BUN/Creat Ratio 16.9 RATIO (10-20); Calcium,Total 9.7 mg/dL (8.5-10.1); Chloride 108 mmol/L (98-107); Creatinine, Serum 1.24 mg/dL (0.55-1.02); EST Glomerular Filtration Rate 46 mL/min (>60); Est Glom Filt Rate - Afr Amer 56 mL/min (>60); Glucose 164 mg/dL (74-106); Potassium 4.7 mmol/L (3.5-5.1); Sodium Level 138 mmol/L (136-145)
== END ==
PROVIDERS: Family Provider Family Medicine; PCP Family Medicine; Visit Provider Family Medicine
DX: I10 Essential (primary) hypertension (principal); M25.561 Pain in right knee
CPT/HCPCS: 36415; 73564; 80048

== ENCOUNTER → 2019-03-05 17:01 | Outpatient (CLI) | payer MEDICARE, SELFPAY ==
[2019-02-12 14:45] VITALS: BMI 29.2
--- NOTE | 2019-03-05 17:10 | MRI_ITS ---
STUDY: MRI LUMBAR SPINE WITHOUT CONTRAST REASON FOR EXAM: Female, 63 years old. back and rt leg pain -- chronic pain since 1971, several kyphoplasties TECHNIQUE: Standardized fat and water weighted pulse sequences were obtained in the sagittal and axial planes. COMPARISON: 04/04/2007 FINDINGS: T11/T12: There is mild disc space narrowing and endplates spondylosis. Mild disc bulge and facet arthropathy without significant central canal or foraminal stenosis. There is a chronic Schmorl''s node at superior endplate of T11. There are vertebral hemangiomata at T10 and T11 T12-L1: There is mild disc space narrowing and endplates spondylosis. There is facet arthropathy with minimal anterolisthesis and mild disc bulge without significant central canal or foraminal stenosis. There is chronic Schmorl''s node at the endplates. Normal lumbar lordosis. There is no substantial scoliosis. Normal conus medullaris that terminates at the L1 . L1-2: There is mild disc space narrowing and endplates spondylosis. There is severe chronic compression fracture at L2 with retropulsion resulting in mild central canal stenosis. There is no significant foraminal stenosis. There is mild bilateral facet hypertrophy. Findings are stable since the prior examination L2-3: There is mild disc space narrowing and endplates spondylosis. There is severe chronic compression fracture at L2 with retropulsion resulting in mild central canal stenosis. There is no significant foraminal stenosis. There is mild bilateral facet hypertrophy. Findings are stable since the prior examination L3-4: There is minimal disc space narrowing and endplate spondylosis. . There is minimal disc bulge and facet arthropathy without significant central canal or foraminal stenosis. There is stable severe compression fracture at L3. L4-5: There is minimal disc space narrowing and endplates spondylosis. There is mild disc bulge and facet arthropathy with mild central canal stenosis. There is mild right and mild left foraminal stenosis. There is minimal anterolisthesis. Findings are stable since prior examination. L5-S1: There is mild disc space narrowing and endplates spondylosis. There is now severe compression fracture at L5 with vertebroplasty. There is moderate disc bulge with small central protrusion without significant central canal stenosis. There is increased severe facet arthropathy with minimal anterolisthesis. There is slightly increased severe right and moderate left foraminal stenosis. Normal visualized sacral ala. MRI/Spine Lumbar (Routine) IMPRESSION: No new fractures. Multiple chronic compression fractures. Stable L2 fracture with retropulsion. L5/S1: Severe right foraminal stenosis. Electronically Signed: Kiki Franco MD at 16:06 EST Tel , Service support ,
== END ==
PROVIDERS: PCP Family Medicine; Referring Provider Anesthesiology Pain Medicine; Visit Provider Anesthesiology Pain Medicine
DX: M54.5 Low back pain (principal); M79.604 Pain in right leg
CPT/HCPCS: 72148

== ENCOUNTER 2019-03-06 19:15 | Emergency (ER) | payer MEDICARE, SELFPAY ==
[2019-02-12 14:45] VITALS: BMI 29.2
[2019-03-06 19:17] VITALS: BP 181/78; PULSE 104; RESP 20; TEMP 36.9; O2SAT 98; BMI 30.6
[2019-03-06 19:21] VITALS: BP 181/78; PULSE 101; RESP 18; O2SAT 98
--- NOTE | 2019-03-06 19:42 | CT_ITS ---
HISTORY: TRAUMA,DENIES LOC. Fell out of truck, large hematoma lt eye. Hx of diabetes and HTN Technique:CT Head or Brain W/O Contrast Injection Number of Images including paperwork:247 Comparison: February 12, 2019 Findings: CT images of the head were obtained without contrast. Periventricular deep and subcortical white matter disease is present. Left frontal periorbital and facial scalp hematomas with laceration above the left orbit laterally. On the inner table of the left frontal bone there is an 8 mm calcification that may represent a benign calcified meningioma Paranasal sinuses are clear. The brain is atrophic. Calcific ASCVD involves intracranial arteries. No acute intracranial edema or hemorrhage. No acute abnormality of orbits. Middle ear cavities and mastoid air cells are well aerated. Skull is normal. CT/Brain/Head without Contrast IMPRESSION: No acute intracranial abnormality. Left facial, left periorbital, and left frontal bone scalp hematoma with laceration. Chronic changes as above. ASPECT 10. Individualized dose optimization techniques were used for this CT. at 2040 Reported and signed by: Carl Oliveira MD Electronically Signed: Carl Oliveira MD at 20:39 EST Tel , Service support ,
--- NOTE | 2019-03-06 19:42 | CT_ITS ---
HISTORY: TRAUMA,DENIES LOC. Fell out of truck, large hematoma lt eye. Hx of diabetes and HTN TECHNIQUE: Helically acquired images were obtained of the facial bones without intravenous contrast. A radiation dose optimization technique was used for this scan. COMPARISON: CT scan of the brain from February 12, 2019 FINDINGS: # of images incl. paperwork: 459 Paranasal sinuses are clear. Mastoid air cells are free of disease. No fractures are present. Orbits and globes are normal. Visualized portions of the upper cervical spine are normal. Soft tissue swelling is present left facial, left periorbital, and left frontal scalp contusions with laceration. Within the cervical spine, the upper portions, there is degenerative disc disease and facet arthropathy.. CT/Sinus/Facial Bone IMPRESSION: No fracture is perceived. Left facial, left periorbital, and left frontal scalp contusions with a laceration above the left orbit. Individualized dose optimization techniques were used for this CT. at 2043 Reported and signed by: Carl Oliveira MD Electronically Signed: Carl Oliveira MD at 20:41 EST Tel , Service support ,
--- NOTE | 2019-03-06 19:44 | ED.VIS.FALL ---
History of Present Illness Chief Complaint: Fall Informant: Patient Occurred: Today - JPTA Fall from Height (ft): 1 Location: face Quality of Pain: Aching Current Severity: Mild Maximum Severity: Moderate Worsened by: palpation Relieved by: leaving alone Associated Symptoms: Negative for: Parasthesias, Weakness, Loss of function, Inability to ambulate, Loss of consciousness, Amnesia Narrative: Patient was getting out of her 's new truck, it was higher than she expected and she missed the step while coming down, she tried to grab the steering wheel but it slipped out of her hand and did not prevent her from completing the fall to the pavement where she fell face first. She sustained lacerations to her forehead. She denies any changes in her vision or loss of consciousness. She does have a headache that is mild, no focal neurologic symptoms in her arms or legs, no back pain. The right side of her neck hurts but states that was pre-existing. No chest or abdominal pain, no prodromal symptoms. She has felt well lately. Tetanus Immunization: >10 years - Past Medical History (1) CKD (chronic kidney disease), stage III Status: Chronic (2) Hyperlipidemia Status: Chronic (3) Hypertension Status: Chronic (4) NSTEMI (non-ST elevated myocardial infarction) Status: Suspected (5) Nonobstructive atherosclerosis of coronary artery Status: Chronic (6) Takotsubo syndrome Status: Suspected Past Medical History - Allergies and Home Meds Allergies/Adverse Reactions: Allergies codeine Allergy (Verified 12/17/18 13:33) Itching naproxen Adverse Reaction (Verified 03/06/19 19:16) Other makes me jittery Primary Care Physician: Doug Florence MD [Primary Care Provider] - Surgical History: - - Partial hysterectomy, tonsillectomy, right oophorectomy. Lives: Spouse/ Significant Other Smoking Status: Former smoker - Family History Maternal Family History: Family History (Last Reviewed 02/12/19 @ 12:28 by DIDIER Valdivia) Mother Cancer Father Cancer Family History: Reports: Dementia Paternal Family History: Family History (Last Reviewed 02/12/19 @ 12:28 by DIDIER Valdivia) Mother Cancer Father Cancer Family History: Reports: - - Patient denies any marked paternal or maternal family history including heart disease, diabetes, cancer. Review of Systems General: Denies: Chills, Fever, Sweats Eyes: Denies: Visual changes - bilaterally, Diplopia ENT: Reports: - - Facial pain and lacerations. Denies: Bilateral ear pain, Rhinorrhea, Sore throat Cardiovascular: Denies: Chest pain, Palpitations Respiratory: Denies: Dyspnea, Cough, Dyspnea on exertion Gastrointestinal: Denies: Abdominal pain, Nausea, Vomiting, Diarrhea, Melena, Hematochezia Genitourinary: Denies: Dysuria, Hematuria, Frequency Musculoskeletal: Reports: Neck pain. Denies: Back pain, Swelling, Extremity Pain Skin: Reports: Abrasions - Right hand without pain. Denies: Rash, Wounds Neurological: Reports: Headache. Denies: Weakness, Numbness Physical Exam Vital Signs/Narrative: Vital Signs Temp Pulse Resp BP Pulse Ox 03/06/19 19:21 101 H 18 181/78 H 98 03/06/19 19:17 98.5 F 104 H 20 H 181/78 H 98 Inital Vital Signs reviewed: Yes General: Well nourished, Well developed, - - Keenly alert. GCS 15. Head: Normocephalic, Atraumatic Eyes: Perrl, EOMI - Without entrapment or pain or diplopia ENT: TM's clear, No hemotympanum or drainage, No trauma, - - Midface is stable. Large hematoma about the left zygomatic arch which is all tender. Diffusely contused throughout the left mid face and forehead, along with lacerations. See the skin exam. No crepitance or depression.. Negative for: Nasal trauma, Nasal septal hematoma Neck: Nontender, Full ROM Cardiovascular: Regular rate, Regular rhythm, No murmurs Respiratory: No distress, CTA bilaterally, Chest nontender Abdomen: Soft, Nontender, Nondistended, Normal bowel sounds Back: Nontender Skin: Normal color, No rash, Trauma - 2 lacerations to left face/forehead. One above and below the hairline is 6 cm full-thickness irregular/stellate, 1 closer to the eyebrow is 3 cm, full-thickness, irregular. Both are clean without foreign body. Neurological: Alert, Oriented x3, Cranial nerves II-XII grossly intact, Normal Strength, Normal Sensation, Normal Gait Psychological: Normal affect, Normal Mood Diagnostic/Tx/Re-eval Clinical Impression(s) from Imaging Studies Brain CT 03/06/19 19:42 IMPRESSION: No acute intracranial abnormality. Left facial, left periorbital, and left frontal bone scalp hematoma with laceration. Chronic changes as above. ASPECT 10. Individualized dose optimization techniques were used for this CT. at 2040 Reported and signed by: Carl Oliveira MD Electronically Signed: Carl Oliveira MD at 20:39 EST Tel , Service support , Facial/Sinus 03/06/19 19:42 IMPRESSION: No fracture is perceived. Left facial, left periorbital, and left frontal scalp contusions with a laceration above the left orbit. Individualized dose optimization techniques were used for this CT. at 2043 Reported and signed by: Carl Oliveira MD Electronically Signed: Carl Oliveira MD at 20:41 EST Tel , Service support , - Medical Decision Making Patient developed nausea and was given Zofran. After that she continued to vomit once or twice, so she was given Phenergan and at her request, some Ativan as she was becoming very anxious waiting to get sutured. After these medicines were given, she felt much better. CT showed no sign of an intracranial hemorrhage. The laceration on her forehead was stellate and down to the skull. I pulled the pieces together as they seem to be initially, however there was a very superficial piece of epidermis present in the middle, I left it there and sutured in place. She was cleansed and dressed with bacitracin, advised to have sutures and suzi removed in approximately 5-6 days. Procedures - Lacerations left face Length: 3 cm Depth: Sub Q Shape: Linear Prep: Sterile Conditions - and drape, Chlorhexadine Laceration Repair: Lidocaine with epi, Local Irrigated (ml): 40 Number of Sutures/Suzi: 5 Suture Information: Ethilon, Simple, 6-0 left forehead/scalp Length: 6 cm Depth: Sub Q Shape: Stellate Prep: Sterile Conditions - and drape, Chlorhexadine Laceration Repair: Lidocaine with epi - total 7cc (between both lacs), Local, Wound explored - periosteum intact Irrigated (ml): 50 Number of Sutures/Suzi: 12 - 7 sutures, 5 suzi Suture Information: Ethilon, Simple - #7, 6-0 Comment: 5 skin suzi placed above the hairline ED Disposition - Plan for ED Patient: Disposition: Home or Assisted Living Diagnosis: Closed head injury without loss of consciousness, Facial laceration, Scalp laceration, Traumatic hematoma of face, Tetanus-diphtheria (Td) vaccination Instructions: LACERATION, All, Hematoma, HEAD INJURY, No Wake-Up (Adult) Referrals: Doug Florence MD [Primary Care Provider] - (6d for suture removal)
[2019-03-06] MEDS: Ondansetron ODT 4 MG Tablet 8 MG PO (20:06)
[2019-03-06] MEDS: Diphth,Pertuss(Acell),Tet Vac 0.5 ML Vial IM (20:07)
[2019-03-06] MEDS: Acetaminophen 325 MG Tablet 650 MG PO (20:11)
[2019-03-06] MEDS: proMETHazine 25 MG Tablet PO (20:51)
[2019-03-06] MEDS: Lidocaine/Epi/Tetracaine 50 ML 1 APPLIC TOPICAL (20:51)
[2019-03-06] MEDS: LORazepam 1 MG Tablet PO (20:51)
[2019-03-06 21:15] VITALS: BP 178/87; PULSE 98; RESP 18; O2SAT 97
[2019-03-06 22:47] VITALS: BP 169/98; PULSE 101; RESP 18; O2SAT 97
== END 2019-03-06 22:50 | disposition home or self-care (01) ==
PROVIDERS: Emergency Provider Emergency Medicine; PCP Family Medicine
DX: S01.01XA Laceration without foreign body of scalp, initial encounter (principal); S01.81XA Laceration without foreign body of other part of head, initial encounter; Z23 Encounter for immunization; I12.9 Hypertensive chronic kidney disease with stage 1 through stage 4 chronic kidney disease, or unspecified chronic kidney disease; N18.3 Chronic kidney disease, stage 3 (moderate); E11.22 Type 2 diabetes mellitus with diabetic chronic kidney disease; E78.5 Hyperlipidemia, unspecified; I25.2 Old myocardial infarction; Z87.891 Personal history of nicotine dependence; W17.89XA Other fall from one level to another, initial encounter; Y93.89 Activity, other specified; Y92.008 Other place in unspecified non-institutional (private) residence as the place of occurrence of the external cause; Y99.8 Other external cause status
CPT/HCPCS: 12002; 12013; 70450; 70486; 90715; 99285

== ENCOUNTER → 2019-09-03 | Outpatient (CLI) | payer MEDICARE, SELFPAY ==
[2019-09-03 16:59] LABS: Absolute Lymphocyte Count 3.01 X10^3/uL (0.83-4.51); Absolute Neutrophil Count 8.5 X10^3/uL (2.0-7.7); Basophil# 0.03 X10^3/uL; Basophil% 0.2 % (0-1); Eosinophil# 0.31 X10^3/uL; Eosinophils% 2.5 % (0-5); Hematocrit 37.6 % (37-47); Hemoglobin 11.9 g/dL (12.0-15.0); Lymphocyte # 3.01 X10^3/ul (4.0); Mean Corp Hgb Conc 31.6 g/dL (32-36); Mean Corpuscular Hgb 28.8 pg (27.0-32.0); Mean Platelet Vol. 9.2 fl (6.2-12.0); Monocyte# 0.63 X10^3/uL; NRBC Flagged by Analyzer 0 % (0-5); Neutrophil # 8.52 X10^3/uL (2.7-7.7); Platelet Count 153 K/mm3 (150-450); RBC Distribution Width CV 12.9 % (11.6-14.6); RBC Distribution Width SD 41.9 fl (35.1-43.9); Red Blood Count 4.13 M/mm3 (4.2-5.4); White Blood Count 12.5 K/mm3 (4.4-11.0)
[2019-09-03 18:17] LABS: Vitamin D,25 Hydroxy 78.6 ng/mL
[2019-09-03 18:25] LABS: AST(SGOT) 8 U/L (15-37); Alanine Aminotransfer ALT/SGPT 17 U/L (13-56); Albumin, Serum 3.9 g/dL (3.2-5.0); Alkaline Phosphatase 94 U/L (45-117); Anion Gap 6 (5-15); BUN 36 mg/dL (7-18); BUN/Creat Ratio 31.9 RATIO (10-20); Chloride 107 mmol/L (98-107); Creatinine, Serum 1.13 mg/dL (0.55-1.02); EST Glomerular Filtration Rate 51 mL/min (>60); Est Glom Filt Rate - Afr Amer 62 mL/min (>60); Globulin 3.8 g/dL (2.2-4.2); Glucose 242 mg/dL (74-106); Protein, Total 7.7 g/dL (6.4-8.2); Sodium Level 138 mmol/L (136-145); T4 Free Direct 0.97 ng/dL (0.76-1.46)
== END | disposition home or self-care (01) ==
LOC: BFHLAB 15:52
PROVIDERS: PCP Family Medicine; Visit Provider Family Medicine
DX: E11.9 Type 2 diabetes mellitus without complications (principal); E55.9 Vitamin D deficiency, unspecified; R94.6 Abnormal results of thyroid function studies; E87.6 Hypokalemia
CPT/HCPCS: 36415; 80053; 82306; 84439; 84443; 85025

== ENCOUNTER → 2021-07-26 | Outpatient (CLI) | payer MEDICARE, SELFPAY ==
--- NOTE | 2021-07-26 14:42 | RAD_ITS ---
STUDY: X-RAY - LUMBAR SPINE REASON FOR EXAM: Female, 65 years old. Severe back pain. Unsteady gait. TECHNIQUE: 4 view(s) of the lumbar spine were obtained. COMPARISON: 02/03/2019. MRI of the lumbar spine, 03/05/2019 FINDINGS: There is reversal of the normal lumbar lordosis. There is no substantial scoliosis. There is a normal alignment of the vertebrae. There is diffuse demineralization with multi-level endplate spondylosis. There is multi-level degenerative disc disease with multi-level disc space narrowing. There are compression deformities at multiple levels most marked at L2. There is evidence of vertebral augmentation at the L5 vertebra. There is no demonstrated spondylolysis of the pars interarticulares. There is atherosclerotic calcification of the abdominal aorta without a demonstrated aneurysm. RAD/L/S Spine Min 4 Views IMPRESSION: Osteopenia and degenerative changes lumbar spine with multiple compression deformities these appear unchanged from a MRI of the spine dated 03/05/2019. Electronically Signed: Ron Miller DO at 16:52 EDT ,
== END | disposition home or self-care (01) ==
LOC: MTRAD 14:40
PROVIDERS: PCP Family Medicine; Referring Provider Family Medicine; Visit Provider Family Medicine
DX: M54.50 Low back pain, unspecified (principal)
CPT/HCPCS: 72110

== ENCOUNTER → 2022-07-13 | Outpatient (CLI) | payer MEDICARE, SELFPAY ==
[2022-07-13 12:28] LABS: AST(SGOT) 17 U/L (15-37); Alanine Aminotransfer ALT/SGPT 21 U/L (13-56); Albumin, Serum 3.7 g/dL (3.2-5.0); Alkaline Phosphatase 88 U/L (45-117); Anion Gap 8 (5-15); BUN 27 mg/dL (7-18); BUN/Creat Ratio 24.1 RATIO (10-20); Calcium,Total 8.7 mg/dL (8.5-10.1); Chloride 109 mmol/L (98-107); Cholesterol 122 mg/dL (200); Creatinine, Serum 1.12 mg/dL (0.55-1.02); EST Glomerular Filtration Rate 51 mL/min (>60); Est Glom Filt Rate - Afr Amer 62 mL/min (>60); Globulin 3.6 g/dL (2.2-4.2); Glucose 161 mg/dL (74-106); High Density Lipoprotein 46 mg/dL; Potassium 3.8 mmol/L (3.5-5.1); Protein, Total 7.3 g/dL (6.4-8.2); Sodium Level 141 mmol/L (136-145); Triglycerides 103 mg/dL; Very Low Density Lipoprotein 21 mg/dL (5-40)
[2022-07-13 12:32] LABS: Absolute Lymphocyte Count 3.03 X10^3/uL (0.83-4.51); Absolute Neutrophil Count 5.2 X10^3/uL (2.0-7.7); Basophil# 0.03 X10^3/uL; Basophil% 0.3 % (0-1); Eosinophil# 0.27 X10^3/uL; Hematocrit 40.8 % (37-47); Lymphocyte # 3.03 X10^3/ul (0.83-4.51); Lymphocyte % 33.3 % (19-41); Mean Corp Hgb Conc 31.9 g/dL (32-36); Mean Platelet Vol. 9.8 fl (6.2-12.0); Monocyte# 0.51 X10^3/uL; Monocyte% 5.6 % (0-10); NRBC Flagged by Analyzer 0 % (0-5); Neutrophil # 5.22 X10^3/uL (2.7-7.7); Neutrophil % 57.5 % (47-70); Platelet Count 307 K/mm3 (150-450); RBC Distribution Width CV 12.3 % (11.6-14.6); RBC Distribution Width SD 42.7 fl (35.1-43.9); Red Blood Count 4.34 M/mm3 (4.2-5.4); White Blood Count 9.1 K/mm3 (4.4-11.0)
[2022-07-13 12:37] LABS: Vitamin D,25 Hydroxy 102.8 ng/mL
== END | disposition home or self-care (01) ==
PROVIDERS: PCP Nurse Practitioner Family; Referring Provider Nurse Practitioner Family; Visit Provider Nurse Practitioner Family
DX: I10 Essential (primary) hypertension (principal); E11.9 Type 2 diabetes mellitus without complications; E78.5 Hyperlipidemia, unspecified; E55.9 Vitamin D deficiency, unspecified
CPT/HCPCS: 36415; 80053; 80061; 82306; 85025

== ENCOUNTER 2022-08-05 17:52 | Inpatient (IN) | payer MEDICARE, MEDICAID, SELFPAY ==
[2022-08-05 17:54] VITALS: BP 170/74; PULSE 80; RESP 18; TEMP 37.1; O2SAT 96; BMI 33.5
--- NOTE | 2022-08-05 18:05 | RAD_ITS ---
INDICATION: pain EXAMINATION/TECHNIQUE: X-RAY - XR Ribs Unilateral W/ PA Chest Min 3 Views COMPARISON: None. FINDINGS: SOFT TISSUES: No soft tissue swelling or gas. BONES: No displaced fracture. No sclerotic or destructive changes observed. Degenerative vertebral changes. VISUALIZED LUNGS: Clear. No pneumothorax. RAD/Ribs Uni Min 3V w/PA Chest IMPRESSION: Old right rib fractures. Electronically Signed: Keaton Pineda DO at 20:07 EDT ,
--- NOTE | 2022-08-05 18:07 | EDS_ITS ---
HPI <DIDIER Ohara - Last Filed: 08/05/22 20:31> HPI - Fall History of Present Illness Chief Complaint: Fall Narrative Narrative: Patient had a mechanical fall in her driveway due to a chronic foot drop. She landed on her left side and struck her head. No LOC. She was not able to get up due to left hip pain and was brought in by EMS. She complains of left rib cage and left rib pain. No shortness of breath. No headache, visual changes, nausea or vomiting. No blood thinners. Denies neck or back pain. <Dr. Nico Arce MD - Last Filed: 08/05/22 21:02> HPI - Fall History of Present Illness Informant: [facility] <DIDIER Ohara - Last Filed: 08/05/22 20:31> [facility] Medical History (Updated 08/05/22 @ 21:[address] Nico Arce MD) Essential (primary) hypertension Hyperlipidemia Nonobstructive atherosclerosis of coronary artery NSTEMI (non-ST elevated myocardial infarction) (01/06/18) Obesity Psoriatic arthritis Takotsubo syndrome Type 2 diabetes mellitus Home Medications alendronate 70 mg tablet 70 mg PO QWEEK osteoporosis 01/06/18 [History Last Taken Unknown] buspirone 7.5 mg tablet 15 mg PO BID anxiety 01/06/18 [History Last Taken Unknown] fluoxetine 40 mg capsule 40 mg PO BID anxiety 01/06/18 [History Last Taken Unknown] glipizide 5 mg tablet 10 mg PO DAILY antidiabetic 01/06/18 [History Last Taken Unknown] omeprazole 20 mg tablet,delayed release 20 mg PO DAILY GERD 01/06/18 [History Last Taken Unknown] oxybutynin chloride 5 mg tablet 10 mg PO DAILY 01/06/18 [History Last Taken Unknown] simvastatin 40 mg tablet 40 mg PO DAILY Cholesterole 01/06/18 [History Last Taken Unknown] carvedilol 3.125 mg tablet 3.125 mg PO BID #90 tabs 07/10/18 [Rx Last Taken Unknown] ergocalciferol (vitamin D2) 1,250 mcg (50,000 unit) capsule 50,000 unit PO QWEEK supplement 02/12/19 [History Last Taken Unknown] lisinopril 20 mg tablet 20 mg PO DAILY #30 tabs 02/15/19 [Rx Last Taken Unknown] meloxicam 7.5 mg tablet 7.5 mg PO DAILY #30 tabs 02/15/19 [Rx Last Taken Unknown] fexofenadine 180 mg tablet 180 mg PO DAILY 07/06/22 [History Last Taken Unknown] Allergy/AdvReac Type Severity Reaction Status Date / Time codeine Allergy Itching Verified 08/05/22 17:54 naproxen AdvReac Other Verified 08/05/22 17:54 Family History Mother Cancer skin Father Cancer prostate Surgical History History of back surgery History of carpal tunnel release of both wrists History of hysterectomy History of left heart catheterization (01/07/18) Social History Smoking Status: Former smoker how long ago did patient quit smokin years ago alcohol intake: never substance use type: does not use caffeine: Yes Type: carbonated beverages Number of servings: 1 ROS <DIDIER Ohara - Last Filed: 08/05/22 20:31> ROS ED ROS Narrative Constitutional: Negative for fever, chills, malaise. Eyes: Negative for visual change. CVS: Negative for chest pain, syncope. Respiratory: Negative for shortness of breath. GI: Negative for abdominal pain, nausea, vomiting. Neuro: Negative for headache, motor/sensory dysfunction. Skin: Positive for abrasions. Musc: Positive for left hip pain, trauma. EXAM <DIDIER Ohara - Last Filed: 08/05/22 20:31> Physical Exam Narrative Exam Narrative: CONST: Patient sitting in no acute distress. EYES: Normal inspection. PERRLA, EOMI. ENT: Head normocephalic atraumatic, no raccoon eyes or dozier sign, no hemotympa num, no nasal septal hematoma, no CSF otorrhea or rhinorrhea. NECK: Normal inspection. No midline spinal tenderness, no step off or crepitus. RESP: No respiratory distress, CTAB. Tender over the left lower anterior rib cage, no deformity or crepitus, no bruising. CVS: Regular rate and rhythm, no murmur, no gallop. ABD: Soft and nontender, no guarding or rebound, nondistended. Back: Normal inspection, spine SKIN: Abrasions over left elbow and left knee. EXTREMITIES: Normal appearance of both upper extremities, full ROM, no bony tenderness, 2+ radial pulses. Left leg shortened and externally rotated, pain with logroll. No other bony tenderness present, 2+ DP pulses. NEURO: Oriented x4. PSYCH: Normal affect. Const Vital Signs: 08/05/22 17:54 08/05/22 18:06 08/05/22 20:12 Temperature 98.8 F Temperature Source Temporal Pulse Rate 80 88 Respiratory Rate 18 18 Respiratory Effort Normal Respiratory Depth Normal Respiratory Pattern Normal Blood Pressure 170/74 H 184/85 H Blood Pressure Mean 106 118 Pulse Ox 96 94 Oxygen Delivery Method Room Air <Dr. Nico Arce MD - Last Filed: 08/05/22 21:02> Physical Exam Const Vital Signs: 08/05/22 17:54 08/05/22 18:06 08/05/22 20:12 Temperature 98.8 F Temperature Source Temporal Pulse Rate 80 88 Respiratory Rate 18 18 Respiratory Effort Normal Respiratory Depth Normal Respiratory Pattern Normal Blood Pressure 170/74 H 184/85 H Blood Pressure Mean 106 118 Pulse Ox 96 94 Oxygen Delivery Method Room Air MDM <DIDIER Ohara - Last Filed: 08/05/22 20:31> [facility] Narrative Medical decision making narrative: History gathered from: Patient and EMS Patient had a mechanical fall with closed head injury without loss of consciousness. She injured her left rib cage and her left hip. She is awake and alert with GCS 15. No signs of head injury or basilar skull fracture. Neurologically intact. She has no neck or midline spinal tenderness throughout the spine. Chest wall stable with normal heart and lung sounds. She is tender over the left lower ribs with no deformity or crepitus. No abdominal tenderness. Pelvis stable but her left leg is shortened and rotated and she has pain in the hip with any range of motion. Upper and lower extremity distal pulses intact. CT scans of the brain/C-spine are negative. Left rib series x- rays are negative. Left hip x-ray shows suspected nondisplaced intertrochanteric fracture. I spoke with Dr. Montemayor, orthopedics to confirm this is a fracture. Patient was given pain control and will be admitted for surgical fixation. Case discussed with the hospitalist for admission. Consults: Orthopedics, hospitalist Differential: Contusion, hip fracture, pelvic fracture Lab Data Labs: Laboratory Results - last 24 hr 08/05/22 20:42 WBC 16.1 H RBC 4.16 L Hgb 12.3 Hct 39.0 MCV 93.8 MCH 29.6 MCHC 31.5 L RDW Std Deviation 42.2 RDW Coeff of Gerhard 12.1 Plt Count 248 MPV 9.9 Immature Gran % (Auto) 0.600 Neut % (Auto) 89.8 H Lymph % (Auto) 6.0 L [place] % (Auto) 3.2 Eos % (Auto) 0.2 Baso % (Auto) 0.2 Absolute Neuts (auto) 14.5 H Absolute Lymphs (auto) 0.97 Nucleated RBC % 0 Radiography Diagnostic Testing: Clinical Impression(s) from Imaging Studies Ribs w/Chest X-Ray 08/05/22 18:05 IMPRESSION: Old right rib fractures. Electronically Signed: Keaton Pineda DO at 20:07 EDT , Brain CT 08/05/22 18:20 IMPRESSION: Normal unenhanced CT scan of the brain. Electronically Signed: Keaton Pineda DO at 18:45 EDT , Cervical Spine CT 08/05/22 18:20 IMPRESSION: Degenerative changes changes and discogenic disease as noted of the cervical spine. Electronically Signed: Keaton Pineda DO at 18:54 EDT , Hip/Pelvis X-Ray 08/05/22 18:30 IMPRESSION: Possible nondisplaced intertrochanteric fracture of the left femur. Electronically Signed: Keaton Pineda DO at 20:10 EDT , ED attending interpretation of chest/rib series shows no evidence of displaced rib fracture or pneumothorax. ED attending interpretation of left hip shows suspected nondisplaced intertrochanteric fracture. <Dr. Nico Arce MD - Last Filed: 08/05/22 21:02> [facility] Lab Data Attestation: I reviewed the patient's lab results. Labs: Laboratory Results - last 24 hr 08/05/22 20:42 WBC 16.1 H RBC 4.16 L Hgb 12.3 Hct 39.0 MCV 93.8 MCH 29.6 MCHC 31.5 L RDW Std Deviation 42.2 RDW Coeff of Gerhard 12.1 Plt Count 248 MPV 9.9 Immature Gran % (Auto) 0.600 Neut % (Auto) 89.8 H Lymph % (Auto) 6.0 L [place] % (Auto) 3.2 Eos % (Auto) 0.2 Baso % (Auto) 0.2 Absolute Neuts (auto) 14.5 H Absolute Lymphs (auto) 0.97 Nucleated RBC % 0 Radiography Diagnostic Testing: Clinical Impression(s) from Imaging Studies Ribs w/Chest X-Ray 08/05/22 18:05 IMPRESSION: Old right rib fractures. Electronically Signed: eKaton Pineda DO at 20:07 EDT , Brain CT 08/05/22 18:20 IMPRESSION: Normal unenhanced CT scan of the brain. Electronically Signed: Keaton Pineda DO at 18:45 EDT , Cervical Spine CT 08/05/22 18:20 IMPRESSION: Degenerative changes changes and discogenic disease as noted of the cervical spine. Electronically Signed: Keaton Pineda DO at 18:54 EDT , Hip/Pelvis X-Ray 08/05/22 18:30 IMPRESSION: Possible nondisplaced intertrochanteric fracture of the left femur. Electronically Signed: Keatonstaci Pineda DO at 20:10 EDT , Rhythm Strip Rhythm Strip: Sinus Rhythm Rate: 90 Ectopy: None EKG Initial EKG: Attestation: I personally reviewed and interpreted this EKG as follows: Interpretation: Sinus Rhythm and No Acute Injury Pattern Management Discussion w/another healthcare provider: Hospitalist and Rose Grower Treatment and Re-Evaluation Narrative: Seen and evaluated independently and in conjunction with physician medical office receptionist assistant. Agree with notes above unless documented otherwise. Accidental fall onto her left hip not able to move or bear weight since. Also hit her head but no loss consciousness. Exam: Significant pain in the left hip joint with even minor logrolling of the left lower extremity. Difficult to evaluate for shortening since she is holding it up and flexion. No other areas of tenderness in the lower extremities. Bilateral upper extremities full range of motion no tenderness either. High suspicion for hip fracture. We will start with x-rays and pain control. Three-view x-ray series of the left hip on my interpretation shows a nondisplaced intertrochanteric fracture. Discussed with Dr. Ramirez who is in agreement, radiology eventually read the film and agrees as well. Will admit. Discharge Plan Triage Chief Complaint: Fall Other Complaint: Lower Extremity Injury ED Midlevel Provider: Monica Alvarado ED Provider: iNco Arce Dx/Rx/DC Orders Clinical Impression: Closed intertrochanteric fracture of left hip, Abrasion of elbow, left, Abrasion of knee, left, Closed head injury without loss of consciousness, Fall from slip, trip, or stumble Primary Care Provider: Rupal Boyer Disposition Disposition: Acute Care [facility]
[2022-08-05] MEDS: Ondansetron 4 MG/2 ML Vial IV ×2 (18:12→20:54)
[2022-08-05] MEDS: Morphine 4 MG/ML Syringe IV ×2 (18:12→20:55)
--- NOTE | 2022-08-05 18:20 | CT_ITS ---
STUDY: CT BRAIN WITHOUT CONTRAST REASON FOR EXAM: Female, 66 years old. head injury RADIATION DOSAGE (If Supplied By Facility): CTDIvol = ( 44.99 ) mGy, DLP = ( 796.11 ) mGycm TECHNIQUE: Transaxial CT imaging of the brain was performed without administration of intravenous contrast material. Individualized dose optimization techniques were used for this CT. COMPARISON: No relevant priors. FINDINGS: Normal soft tissue structures. Normal calvarium. Normal size ventricles and extra-axial spaces for the patient''s age. Normal white matter tracts of the cerebral hemispheres. Normal basal ganglia and thalami. Normal brainstem. Normal cerebellum. There is no intracranial hemorrhage. There are no findings of an acute ischemic infarction. Normal visualized paranasal sinuses. CT/Brain/Head without Contrast IMPRESSION: Normal unenhanced CT scan of the brain. Electronically Signed: Keaton Pineda DO at 18:45 EDT ,
--- NOTE | 2022-08-05 18:20 | CT_ITS ---
STUDY: CT CERVICAL SPINE WITHOUT CONTRAST REASON FOR EXAM: Female, 66 years old. cervicalgia RADIATION DOSAGE (If Supplied By Facility): CTDIvol = ( 26.49 ) mGy, DLP = ( 567.39 ) mGycm TECHNIQUE: High resolution transaxial imaging was performed without contrast material. Sagittal and coronal images were reconstructed. Individualized dose optimization techniques were used for this CT. COMPARISON: None FINDINGS: Normal craniovertebral junction. Normal anterior atlantoaxial articulation. Normal odontoid process. Normal cervical lordosis. Normal vertebral bodies and posterior osseous elements. C2-3: Normal endplates. Normal disc height with a possible small central disc herniation. Normal central canal. Uncovertebral spurring slightly narrowing the left intervertebral neural foramen. C3-4: Normal endplates. Normal disc height and morphology. Normal central canal. Facet hypertrophy narrowing the left intervertebral neural foramen. C4-5: Normal endplates. Normal disc height with a central disc herniation slightly impressing upon the cord anteriorly. Normal central canal. Facet hypertrophy and uncovertebral spurring narrowing the left intervertebral neural foramen. C5-6: Mild spurring at the endplates. Narrowed disc height. Normal central canal. Uncovertebral spurring slightly narrowing the right intervertebral neural foramen. C6-7: Mild spurring at the endplates. Normal disc height and morphology. Normal central canal and intervertebral neuroforamina. C7-T1: Normal endplates. Normal disc height and morphology. Normal central canal and intervertebral neuroforamina. Normal visualized soft tissue structures. CT/Spine Cervical without Contras IMPRESSION: Degenerative changes changes and discogenic disease as noted of the cervical spine. Electronically Signed: Keaton Pineda DO at 18:54 EDT Reading Location ID and State: [facility] / [place] Tel [phone], Service support ,
--- NOTE | 2022-08-05 18:30 | RAD_ITS ---
INDICATION: pain EXAMINATION/TECHNIQUE: X-RAY - XR Hip Unilateral with Pelvis when performed; 2-3 Views COMPARISON: None. FINDINGS: PELVIC BONES: No displaced fracture, destructive or sclerotic lesions. Note that overlapping bowel shadows may however obscure fine detail. Sacroiliac joints are unremarkable. No widening of the pubic symphysis. HIPS: Possible intertrochanteric fracture of the left femur. No displaced fracture seen in this frontal view. SOFT TISSUES: No soft tissue swelling or gas. RAD/HIP, UNI W/ Pelvis 2-3 Views IMPRESSION: Possible nondisplaced intertrochanteric fracture of the left femur. Electronically Signed: Keaton Pineda DO at 20:10 EDT Reading Location ID and State: [facility] / [place] Tel [phone], Service support ,
[2022-08-05] MEDS: HYDROmorphone 0.5 MG/0.5 ML SYRINGE IV (19:02)
[2022-08-05 20:12] VITALS: BP 184/85; PULSE 88; RESP 18; O2SAT 94
--- NOTE | 2022-08-05 20:27 | HP.PCM.HOS_ITS ---
[facility] - General General Date of Admission: 08/05/22 Date of Service: 08/05/22 Chief Complaint: Fall HPI Narrative LUBA MARSH, is a 66 F with a significant history of hypertension; diabetes mellitus and foot drop who presents emergency department with a fall. Reportedly patient fell due to having foot drop. Her fall was mechanical. She landed on her left side and has excruciating pain of her left lower extremity from her hip to her left knee. Further, the patient complains of rib pain; left worse than right. She has a chronic back pain for which she is on medical marijuana. Patient denies any other symptoms. [facility] Medical History Essential (primary) hypertension Hyperlipidemia Nonobstructive atherosclerosis of coronary artery NSTEMI (non-ST elevated myocardial infarction) (01/06/18) Obesity Psoriatic arthritis Takotsubo syndrome Type 2 diabetes mellitus Home Medications alendronate 70 mg tablet 70 mg PO QWEEK osteoporosis 01/06/18 [History Last Taken Unknown] buspirone 7.5 mg tablet 15 mg PO BID anxiety 01/06/18 [History Last Taken Unknown] fluoxetine 40 mg capsule 40 mg PO BID anxiety 01/06/18 [History Last Taken Unknown] glipizide 5 mg tablet 10 mg PO DAILY antidiabetic 01/06/18 [History Last Taken Unknown] omeprazole 20 mg tablet,delayed release 20 mg PO DAILY GERD 01/06/18 [History Last Taken Unknown] oxybutynin chloride 5 mg tablet 10 mg PO DAILY 01/06/18 [History Last Taken Unknown] simvastatin 40 mg tablet 40 mg PO DAILY Cholesterole 01/06/18 [History Last Taken Unknown] carvedilol 3.125 mg tablet 3.125 mg PO BID #90 tabs 07/10/18 [Rx Last Taken Unknown] ergocalciferol (vitamin D2) 1,250 mcg (50,000 unit) capsule 50,000 unit PO QWEEK supplement 02/12/19 [History Last Taken Unknown] lisinopril 20 mg tablet 20 mg PO DAILY #30 tabs 02/15/19 [Rx Last Taken Unknown] meloxicam 7.5 mg tablet 7.5 mg PO DAILY #30 tabs 02/15/19 [Rx Last Taken Unk nown] fexofenadine 180 mg tablet 180 mg PO DAILY 07/06/22 [History Last Taken Unknown] Allergy/AdvReac Type Severity Reaction Status Date / Time codeine Allergy Itching Verified 08/05/22 17:54 naproxen AdvReac Other Verified 08/05/22 17:54 Family History Mother Cancer skin Father Cancer prostate Surgical History History of back surgery History of carpal tunnel release of both wrists History of hysterectomy History of left heart catheterization (01/07/18) Social History Smoking Status: Former smoker how long ago did patient quit smokin years ago alcohol intake: never substance use type: does not use caffeine: Yes Type: carbonated beverages Number of servings: 1 ROS ROS Narrative Pertinent positives and pertinent negatives as noted in HPI. All other systems were reviewed and are negative Vital Signs Vital Signs Vital Signs: 08/05/22 17:54 08/05/22 18:06 08/05/22 20:12 Temperature 98.8 F Temperature Source Temporal Pulse Rate 80 88 Respiratory Rate 18 18 Respiratory Effort Normal Respiratory Depth Normal Respiratory Pattern Normal Blood Pressure 170/74 H 184/85 H Blood Pressure Mean 106 118 Pulse Ox 96 94 Oxygen Delivery Method Room Air Weight Weight: 88.7 kg Body Mass Index (BMI) 33.5 Physical Exam Narrative Physical exam: General: Well-nourished, well-developed. Head: Normocephalic, atraumatic, no tenderness Eyes: Vision is grossly intact. EOMI ENT, no trauma, moist mucous membranes, no rhinorrhea Neck: Nontender, No thyromegaly. CVS: Regular rate and rhythm. S1-S2 present. No murmur, gallop or rub. Respiratory : clear to auscultation bilaterally, chest wall nontender Abdomen: Soft, nontender, nondistended, normal bowel sounds, no masses : Deferred Back: Nontender, no CVA tenderness. Extremities: Shortened left lower extremity compared to right lower extremity. Skin: Pale, no trauma, abrasions Neuro: Alert, oriented, cranial nerves II through XII grossly intact. Psychiatry: Normal mood. Normal affect. Not depressed. Not anxious. Results Lab / Micro Data Result Diagrams: 08/05/22 20:42 08/05/22 20:42 Radiology Impression Ribs w/Chest X-Ray 08/05/22 18:05 IMPRESSION: Old right rib fractures. Electronically Signed: Keaton Pineda DO at 20:07 EDT , Brain CT 08/05/22 18:20 IMPRESSION: Normal unenhanced CT scan of the brain. Electronically Signed: Keaton Pineda at 18:45 EDT , Cervical Spine CT 08/05/22 18:20 IMPRESSION: Degenerative changes changes and discogenic disease as noted of the cervical spine. Electronically Signed: Keaton Pineda at 18:54 EDT , Hip/Pelvis X-Ray 08/05/22 18:30 IMPRESSION: Possible nondisplaced intertrochanteric fracture of the left femur. Electronically Signed: Keaton Pineda at 20:10 EDT , Assessment & Plan Assessment/Plan (1) Closed intertrochanteric fracture of left hip: (2) Fall from slip, trip, or stumble: (3) Intertrochanteric fracture of left femur: PLAN: Plan Closed intertrochanteric fracture to left hip/fall Hips and pelvis x-ray, radiology impression:Possible nondisplaced intertrochanteric fracture of the left femur. Hip and pelvis x-ray was independently interpreted and I agree with radiology interpretation. Emergent department doctor discussed the case with Dr. Ramirez. Inpatient consult for orthopedic surgery. Morphine IV as needed ordered. Tylenol as needed ordered. Bowel protocol and antiemetics IV ordered. Clear liquid diet in a.m. and n.p.o. 2 hours for surgery. Keep n.p.o. IV fluids preoperative surgery.Check vitamin D level. Preoperative EKG unremarkable ACS NSQIP surgical risk calculator with below surgical risk. Hypertension Blood pressure is not within goal Home blood pressure medication continued. As needed hydralazine IV ordered. Trend blood pressure and adjust blood pressure medications. Leukocytosis White count of 16.1. Likely reactive. Trend. Diabetes mellitus Blood glucose on presentation was stable. Hold home glipizide as patient will will be n.p.o. Accu-Chek with correction scale insulin ordered. DVT prophylaxis: SCDs ordered. Charges/Coding Visit Charges Inpatient E&M: 63835 Init Hosp L3
--- NOTE | 2022-08-05 20:27 | CON.PCM.OR_ITS ---
HPI Consult Data Date of Consult: 08/05/22 HPI Narrative HPI Narrative: LUBA MARSH, is a 66 F who presents after a mechanical ground-level fall while she was walking in her foot caught into a crack in the sidewalk causing her to land on her left side. She noted immediate pain in her left hip and inability to bear weight. She also noted pain on her left rib cage. She denies any shortness of breath but does note pain with taking a deep inspiration. She esteban es any antecedent left hip or groin pain. Patient has history of CAD with remote NSTEMI in 2018, apparent diet-controlled diabetes mellitus, hypertension, hyperlipidemia, CKD. She has a history of osteoporotic vertebral compression fracture with kyphoplasty. She denies any fevers, chills, nausea vomiting, chest pain or shortness of breath. [facility] Medical History (Updated 08/05/22 @ 20:[address] Dereck Ramirez, ) Essential (primary) hypertension Hyperlipidemia Nonobstructive atherosclerosis of coronary artery NSTEMI (non-ST elevated myocardial infarction) (01/06/18) Obesity Psoriatic arthritis Takotsubo syndrome Type 2 diabetes mellitus Home Medications alendronate 70 mg tablet 70 mg PO QWEEK osteoporosis 01/06/18 [History Last Taken Unknown] buspirone 7.5 mg tablet 15 mg PO BID anxiety 01/06/18 [History Last Taken Unknown] fluoxetine 40 mg capsule 40 mg PO BID anxiety 01/06/18 [History Last Taken Unknown] glipizide 5 mg tablet 10 mg PO DAILY antidiabetic 01/06/18 [History Last Taken Unknown] omeprazole 20 mg tablet,delayed release 20 mg PO DAILY GERD 01/06/18 [History Last Taken Unknown] oxybutynin chloride 5 mg tablet 10 mg PO DAILY 01/06/18 [History Last Taken Unknown] simvastatin 40 mg tablet 40 mg PO DAILY Cholesterole 01/06/18 [History Last Taken Unknown] carvedilol 3.125 mg tablet 3.125 mg PO BID #90 tabs 07/10/18 [Rx Last Taken Unknown] ergocalciferol (vitamin D2) 1,250 mcg (50,000 unit) capsule 50,000 unit PO QWEEK supplement 02/12/19 [History Last Taken Unknown] lisinopril 20 mg tablet 20 mg PO DAILY #30 tabs 02/15/19 [Rx Last Taken Unknown] meloxicam 7.5 mg tablet 7.5 mg PO DAILY #30 tabs 02/15/19 [Rx Last Taken Unknown] fexofenadine 180 mg tablet 180 mg PO DAILY 07/06/22 [History Last Taken Unknown] Allergy/AdvReac Type Severity Reaction Status Date / Time codeine Allergy Itching Verified 08/05/22 17:54 naproxen AdvReac Other Verified 08/05/22 17:54 Family History Mother Cancer skin Father Cancer prostate Surgical History History of back surgery History of carpal tunnel release of both wrists History of hysterectomy History of left heart catheterization (01/07/18) Social History Smoking Status: Former smoker how long ago did patient quit smokin years ago alcohol intake: never substance use type: does not use caffeine: Yes Type: carbonated beverages Number of servings: 1 ROS ROS Narrative 12 point review systems obtained, negative unless otherwise noted in noted HPI. Vital Signs Vital Signs Vital Signs: 08/05/22 17:54 08/05/22 18:06 08/05/22 20:12 Temperature 98.8 F Temperature Source Temporal Pulse Rate 80 88 Respiratory Rate 18 18 Respiratory Effort Normal Respiratory Depth Normal Respiratory Pattern Normal Blood Pressure 170/74 H 184/85 H Blood Pressure Mean 106 118 Pulse Ox 96 94 Oxygen Delivery Method Room Air Weight Weight: 195 lb 8.8 oz Body Mass Index (BMI) 33.5 Physical Exam Narrative General -A&Ox3, NAD, appears stated age. Vital signs stable, afebrile. Respiratory -normal work of breathing, no intercostal retractions. Tenderness along left rib cage without obvious flail segment. CV -pulses regular, brisk capillary refill ?4 limbs. Abdomen-soft, nontender, nondistended. No guarding, rigidity, rebound tenderness. Musculoskeletal/neurologic -full range of motion nontender throughout bilateral upper extremities, right lower extremity with full sensation and strength in all dermatomes and myotomes. No midline cervical tenderness. Left lower extremity-no obvious deformity. Pain with logroll of the left lower extremity. Nontender throughout the left knee femoral shaft, tibial shaft and left foot/ankle. Brisk capillary refill. Sensation intact light touch L3-S1 dermatomes. DF, PF, EHL intact. DP, PT 2+. Pelvis is stable, nontender. Skin is intact without lacerations, abrasions. No ecchymosis noted. Radiology Impression Ribs w/Chest X-Ray 08/05/22 18:05 IMPRESSION: Old right rib fractures. Electronically Signed: Keaton Pineda DO at 20:07 EDT , Brain CT 08/05/22 18:20 IMPRESSION: Normal unenhanced CT scan of the brain. Electronically Signed: Keaton Pineda DO at 18:45 EDT , Cervical Spine CT 08/05/22 18:20 IMPRESSION: Degenerative changes changes and discogenic disease as noted of the cervical spine. Electronically Signed: Keaton Pineda DO at 18:54 EDT , Hip/Pelvis X-Ray 08/05/22 18:30 IMPRESSION: Possible nondisplaced intertrochanteric fracture of the left femur. Electronically Signed: Keaton Pineda DO at 20:10 EDT , Assessment & Plan Assessment/Plan (1) Intertrochanteric fracture of left femur: PLAN: Patient sustained a minimally displaed left intertrochanteric proximal femur fracture. -Closed, neurovascularly intact -Recommending surgical intervention in the form of left femur cephalomedullary nailing -I discussed the procedure-its risks, benefits and alternative. Risks include but are not limited to bleeding, infection, loss of life or limb, risk of anesthesia, persistent pain or disability, need for additional surgery, nonunion, malunion, failure of orthopedic hardware, neurovascular injury, DVT or PE. Patient expressed understanding these risks and wished proceed with surgery. -Maintenance IV fluids, clear liquid diet after midnight n.p.o. at 2 hours prior to surgery -Type and screen -2 g Ancef on-call to the OR -Bedrest, heel protectors -Plan to proceed with surgery tomorrow morning if deemed optimized by hospitalist. Preoperative labs, EKG Thank you for this consultation.
[2022-08-05 20:49] LABS: Absolute Lymphocyte Count 0.97 X10^3/uL (0.83-4.51); Absolute Neutrophil Count 14.5 X10^3/uL (2.0-7.7); Basophil# 0.03 X10^3/uL; Basophil% 0.2 % (0-1); Eosinophil# 0.03 X10^3/uL; Eosinophils% 0.2 % (0-5); Hemoglobin 12.3 g/dL (12.0-15.0); Lymphocyte # 0.97 X10^3/ul (0.83-4.51); Mean Corp Hgb Conc 31.5 g/dL (32-36); Mean Corpuscular Hgb 29.6 pg (27.0-32.0); Mean Corpuscular Volume 93.8 fL (81-99); Mean Platelet Vol. 9.9 fl (6.2-12.0); Monocyte# 0.51 X10^3/uL; Monocyte% 3.2 % (0-10); NRBC Flagged by Analyzer 0 % (0-5); Neutrophil % 89.8 % (47-70); Platelet Count 248 K/mm3 (150-450); RBC Distribution Width CV 12.1 % (11.6-14.6); RBC Distribution Width SD 42.2 fl (35.1-43.9); Red Blood Count 4.16 M/mm3 (4.2-5.4); White Blood Count 16.1 K/mm3 (4.4-11.0)
[2022-08-05 21:05] LABS: International Normalized Ratio 1.1; Prothrombin Time (Protime)PT. 14.3 SECONDS (11.7-14.9)
[2022-08-05 21:15] LABS: ALB/GLOB Ratio 1.1 RATIO (0.9-2.4); AST(SGOT) 18 U/L (15-37); Alanine Aminotransfer ALT/SGPT 20 U/L (13-56); Albumin, Serum 3.6 g/dL (3.2-5.0); Alkaline Phosphatase 77 U/L (45-117); Anion Gap 6 (5-15); BUN 20 mg/dL (7-18); BUN/Creat Ratio 19.4 RATIO (10-20); Calcium,Total 9.1 mg/dL (8.5-10.1); Chloride 110 mmol/L (98-107); Creatinine, Serum 1.03 mg/dL (0.55-1.02); EST Glomerular Filtration Rate 57 mL/min (>60); Est Glom Filt Rate - Afr Amer 68 mL/min (>60); Estimated Creatinine Clearance 45.14 ml/min; Globulin 3.3 g/dL (2.2-4.2); Glucose 150 mg/dL (74-106); Protein, Total 6.9 g/dL (6.4-8.2); Sodium Level 139 mmol/L (136-145)
[2022-08-05 21:26] VITALS: BP 182/85; PULSE 94; RESP 18; TEMP 36.9; O2SAT 94
[2022-08-05 21:53] VITALS: BMI 30.1
[2022-08-05 22:31] VITALS: BP 205/80; PULSE 98; RESP 18; TEMP 36.9; O2SAT 95
[2022-08-05] MEDS: 0.9% Saline Lock 10 ML Syringe IV ×2 (22:37→23:25)
[2022-08-05] MEDS: tiZANidine HCl 2 MG Tablet 4 MG PO (22:37)
[2022-08-05] MEDS: MELATONIN 3 MG TABLET PO (22:37)
[2022-08-05] MEDS: Lactated Ringers 1,000 ML 75 ML IV (22:38)
[2022-08-05] MEDS: Fluoxetine HCl 40 MG CAPSULE PO (22:38)
[2022-08-05] MEDS: Carvedilol 3.125 MG TABLET PO (22:38)
[2022-08-05] MEDS: Atorvastatin Calcium 20 MG Tablet PO (22:39)
[2022-08-05] MEDS: busPIRone 15 MG TABLET PO (22:39)
[2022-08-05 23:24] VITALS: PULSE 98
[2022-08-05] MEDS: hydrALAZINE 20 MG/ML Vial 5 MG IV (23:24)
[2022-08-05] MEDS: Acetaminophen 325 MG Tablet 650 MG PO (23:26)
[2022-08-06] VITALS (13 sets, daily range): BP systolic 91–172; BP diastolic 51–91; PULSE 99–141; RESP 14–16; TEMP 36.1–37.1; O2SAT 91–98; BMI 30.1
[2022-08-06] MEDS: Morphine 2 MG/ML Syringe IV ×2 (00:38→05:04)
[2022-08-06] MEDS: 0.9% Saline Lock 10 ML Syringe IV ×3 (00:39→10:08)
--- NOTE | 2022-08-06 04:50 | RAD_ITS ---
INDICATION: preop EXAMINATION/TECHNIQUE: X-RAY - XR Chest 1 View COMPARISON: 02/12/19. FINDINGS: LINES/DEVICES: None. LUNGS: No consolidation, edema or effusion. No pneumothorax. MEDIASTINUM AND CARDIOVASCULAR STRUCTURES: Cardiac silhouette not enlarged. Central airways and mediastinal contour are unremarkable. BONES AND SOFT TISSUES: Unremarkable. RAD/Chest 1 View (Portable) IMPRESSION: No radiographic evidence of acute cardiopulmonary disease. Electronically Signed: Fátima Bucio MD at 21:28 EDT Reading Location ID and State: [id number] / Tel , Service support ,
[2022-08-06] MEDS: Ondansetron 4 MG/2 ML Vial IV ×2 (05:04→10:08)
[2022-08-06] MEDS: Carvedilol 3.125 MG TABLET PO ×2 (05:05→16:25)
[2022-08-06 06:17] LABS: Absolute Lymphocyte Count 1.39 X10^3/uL (0.83-4.51); Absolute Neutrophil Count 13.2 X10^3/uL (2.0-7.7); Basophil# 0.04 X10^3/uL; Basophil% 0.3 % (0-1); Eosinophil# 0.04 X10^3/uL; Eosinophils% 0.3 % (0-5); Hemoglobin 12.4 g/dL (12.0-15.0); Lymphocyte # 1.39 X10^3/ul (0.83-4.51); Mean Corpuscular Hgb 29.4 pg (27.0-32.0); Mean Corpuscular Volume 94.8 fL (81-99); Mean Platelet Vol. 9.9 fl (6.2-12.0); Monocyte# 0.71 X10^3/uL; Monocyte% 4.6 % (0-10); NRBC Flagged by Analyzer 0 % (0-5); Neutrophil # 13.21 X10^3/uL (2.7-7.7); Neutrophil % 85.1 % (47-70); Platelet Count 273 K/mm3 (150-450); RBC Distribution Width CV 12.2 % (11.6-14.6); RBC Distribution Width SD 42.3 fl (35.1-43.9); Red Blood Count 4.22 M/mm3 (4.2-5.4); White Blood Count 15.5 K/mm3 (4.4-11.0)
[2022-08-06 06:23] LABS: Bedside Glucose 140 mg/dL (74-106)
--- NOTE | 2022-08-06 06:30 | RAD_ITS ---
INDICATION: LEFT HIP PINNING EXAMINATION/TECHNIQUE: X-RAY - XR Hip Unilateral with Pelvis when performed; 1 View COMPARISON: FINDINGS: 8 intraoperative images obtained during ORIF of the left hip. Images are not diagnostic. RAD/Hip 1 view with Pelvis IMPRESSION: Intraoperative images obtained for hardware localization. Electronically Signed: Fátima Bucio MD at 23:57 EDT Reading Location ID and State: [id number] / Tel , Service support ,
[2022-08-06 06:40] LABS: Anion Gap 6 (5-15); BUN 20 mg/dL (7-18); BUN/Creat Ratio 20.4 RATIO (10-20); Calcium,Total 8.5 mg/dL (8.5-10.1); Chloride 108 mmol/L (98-107); Creatinine, Serum 0.98 mg/dL (0.55-1.02); EST Glomerular Filtration Rate 60 mL/min (>60); Est Glom Filt Rate - Afr Amer 73 mL/min (>60); Estimated Creatinine Clearance 47.44 ml/min; Glucose 137 mg/dL (74-106); Potassium 4.1 mmol/L (3.5-5.1); Sodium Level 140 mmol/L (136-145)
--- NOTE | 2022-08-06 07:22 | NURSING ---
LEAVING UNIT VIA BED FOR SCHEDULED SURGERY
--- NOTE | 2022-08-06 09:03 | OP.PCM_ITS ---
Report of Operation Date of Procedure: 08/06/22 Description of Surgical Findings:: Preoperative diagnosis: Left nondisplaced intertrochanteric proximal femur fracture Postoperative diagnosis: Left nondisplaced intertrochanteric proximal femur fracture Procedure: Treatment of intertrochanteric hip fracture with intramedullary nail left femur Surgeon: Dereck Ramirez DO Anesthesia: General endotracheal Anesthesiologist: Dr. Cook Complications: None Drains: None Estimated blood loss: 250 cc Urinary output: None recorded IV fluids: 685 cc crystalloid Specimens: None Surgical implants: Aracely Gamma3 Cephalomedullary Nail 130 degree 11 mm x 180 mm left, 10.5 mm x 95 mm lag screw, Interlocking screw size 5 mm x 40 mm Surgical indications: This is a 66 F who presents after a mechanical ground- level fall while she was walking in her foot caught into a crack in the sidewalk causing her to land on her left side. She noted immediate pain in her left hip and inability to bear weight. She also noted pain on her left rib cage. She denies any shortness of breath but does note pain with taking a deep inspiration. She denies any antecedent left hip or groin pain. Patient was brought the patient to the emergency department where x-rays revealed a nondisplaced left intertrochanteric proximal femur fracture. Denies any head injury, loss consciousness, syncopal or presyncopal symptoms prior to the fall. Denies any antecedent left hip or groin pain. Patient ambulates with a rollator typically but was not using it at time of fall. Patient was admitted under the service of the hospitalist yesterday 08/06/2022. Orthopedics was consulted for surgical recommendations.I recommended cephalomedullary nail fixation of her left intertrochanteric proximal femur fracture. The risks, benefits, alternatives to procedure reviewed with the patient. The risks of the surgery included bleeding, infection, loss of life or limb, malunion, nonunion, damage to vital structures, neurovascular injury, failure of orthopedic hardware, need for additional surgery, persistent pain or disability, risk of anesthesia. The patient expressed understanding of these risks and agreed to proceed with surgery. Blood consent was also obtained. Description of procedure: Patient was seen in preoperative holding area. She was identified by name, medical record number, date of . The operative extremity was marked with a surgical marker. We confirmed informed consent with the patient and questions were answered to her satisfaction. Patient was brought to the operative suite, and general anesthesia was induced on her hospital bed. Endotracheal tube was secured. After adequate anesthesia, patient was transferred to a fracture table with all bony prominences being well-padded. A perineal post was placed to secure the patient on the table. We then applied a ski boot which was well-padded to the operative extremity. The well leg was dropped into extension and secured to the axial post of the fracture table with a pillow and Coban. The left arm was brought across patient's chest with a blanket on her chest. We then performed a closed reduction maneuver with external rotation, traction, internal rotation and adduction. Fluoroscopic images were obtained. Fracture appeared to be acceptably reduced following closed reduction. We then prepped and draped the left lower extremity in normal, sterile orthopedic fashion. A timeout was performed with all parties in attendance in a greement with the side, site, and operation be performed. 2 g Ancef was administered prior to incision. No concerns were voiced and we elected to proceed. I first used fluoroscopy to florian the level of the fracture and planned incision for insertion of the cephalomedullary nail device. In line with the long axis of the femur, 4 fingerbreadths proximal to the tip of the greater trochanter, a full-thickness skin incision was planned.. Skin was sharply incised with 10 blade scalpel, carried into the subcutaneous tissues. The IT band was encountered and split and planned trajectory of the nail placement. The greater trochanter was then able to be palpated digitally. I then placed a threaded guidewire just medial to the tip of the greater trochanter and in the anterior third of it on the lateral. Opening reamer was then placed over top of the guidewire after placement was confirmed on C arm. A ball-tipped guidewire then was passed into the intramedullary canal after reamer was removed. We used C arm to confirm our placement within the bone. We then sequentially reamed to a final diameter of 12.5 mm using flexible reamers. Reduction was again confirmed. We selected her nail to be 18 cm x 11 mm diameter. Reamers were removed. Nail was assembled on the back table. We placed it over the ball- tipped guidewire and impacted to an appropriate depth. Rotation was confirmed on the lateral. Drill sleeve was placed through the targeting guide. We drilled the pin for the lag screw at an appropriate position and depth, tip to apex distance less than 25 mm on AP and lateral combined. Depth gauge was used to measure the length of the screw, 95 mm. We then used the cannulated drill to drill to an appropriate depth. Drill was removed, drill pin left in place. Lag screw was placed over top of the drill pin and tightened to an appropriate depth. Setscrew was then placed and tightened, and then turned back a quarter turn to allow the lag screw to slide. I then drilled for a static interlocking screw in the distal portion of the screw utilizing the outrigger. Skin was incised full-thickness down the level of the IT band which was also split in line with the skin incision. I drilled bicortically through the distal interlocking slot of the nail. I measured for a 40 mm interlocking screw which was placed by hand with excellent purchase. Instruments were removed as well as the outrigger for the nail. Final fluoroscopic images were obtained at the hip. Final fluoroscopic images were obtained. We irrigated the wounds copiously with normal saline solution. Hemostasis was excellent at this point. We then closed the deeper layers, IT band with 0 Vicryl. Intradermal buried stitches of 2-0 Vicryl were utilized and skin finally reapproximated with skin yasmeen. Sterile compression dressing of Xeroform, 4 x 4's, and Tegaderm was applied. Patient tolerated procedure well without complication. She was transferred back to her hospital bed and subsequently to PACU in stable condition. Intraoperative medications: 2 g Ancef IV Post Operative Plan: Weightbearing: Weightbearing as tolerated left lower extremity with a walker Antibiotics: Ancef 2 g x 3 doses postoperatively, 1 dose given preoperatively DVT Prophylaxis: Lovenox to start tomorrow morning, plan for Lovenox x28 days postoperatively Lopez: None Dressing: Dry sterile dressing changes daily and as needed for saturation X-Rays: 2 weeks postop in the office Follow-up: 2 weeks post-operatively with me in the office
[2022-08-06 09:27] LABS: Bedside Glucose 305 mg/dL (74-106)
[2022-08-06] MEDS: Lactated Ringers 1,000 ML 75 ML IV (10:15)
[2022-08-06 10:39] LABS: Bedside Glucose 421 mg/dL (74-106)
[2022-08-06] MEDS: Insulin Lispro 100 UNIT/ML INSULN.PEN 15 UNIT SC (11:24)
[2022-08-06] MEDS: Pantoprazole Sodium 20 MG Tablet PO (11:54)
[2022-08-06] MEDS: Calcium Carbonate 500 MG Tablet PO ×2 (12:00→16:34)
[2022-08-06] MEDS: Nystatin Powder 15gm Bottle 1 APPLIC TOPICAL ×2 (12:00→20:32)
[2022-08-06] MEDS: Cefazolin 2 GM in 0.9% Normal Saline 100 ML IV ×2 (13:46→21:23)
[2022-08-06] MEDS: Lisinopril 20 MG Tablet PO (13:47)
[2022-08-06] MEDS: Acetaminophen 325 MG Tablet 650 MG PO (14:03)
[2022-08-06] MEDS: Insulin Lispro 100 UNIT/ML INSULN.PEN SC ×2 (16:24→21:26)
--- NOTE | 2022-08-06 17:01 | PCM.PN.HOSP ---
Reason for Visit Reason for Visit: Diagnoses Displaced intertrochanteric fracture of left femur, initial encounter for closed fracture (08/05/22) Fall on same level from slipping, tripping and stumbling without subsequent striking against object, initial encounter (08/05/22) Subjective Subjective Patient was seen and examined today, I talked with her daughter who was in the room at the time my examination, it appears that they would like the patient to go to short-term [facility] when she is discharged from the hospital, I think this is a good idea also because she has been having some problems ambulating at home prior to coming in for this hip fracture. Patient underwent gamma nail insertion today for repair of left intertrochanteric fracture, patient has been tachycardic after surgery, I have elected to give the patient some IV fluids and place her on telemetry. Objective Data Objective Data Vital Signs: Vital Signs Temp Pulse Resp BP Pulse Ox O2 Del Method O2 Flow Rate 98.7 F 129 H 14 118/67 94 Room Air 2 08/06/22 14:00 08/06/22 14:00 08/06/22 14:00 08/06/22 14:00 08/06/22 14:00 08/06/22 14:00 08/06/22 09:30 Oxygen Flow Rate (L/min) 2 Oxygen Delivery Method Room Air Weight: 79.6 kg Body Mass Index (BMI) 30.1 Intake & Output: Intake and Output for Last 24 Hours 08/04/22 08/05/22 08/06/22 23:59 23:59 23:59 Intake Total 1246.25 / 1246.25 Output Total 200 / 200 Balance 1046.25 / 1046.25 Lab / Micro Data Result Diagrams: 08/06/22 05:41 08/06/22 05:41 Labs: Laboratory Results - last 24 hr 08/05/22 20:42: WBC 16.1 H, RBC 4.16 L, Hgb 12.3, Hct 39.0, MCV 93.8, MCH 29.6, MCHC 31.5 L, RDW Std Deviation 42.2, RDW Coeff of Gerhard 12.1, Plt Count 248, MPV 9.9, Immature Gran % (Auto) 0.600, Neut % (Auto) 89.8 H, Lymph % (Auto) 6.0 L, [place] % (Auto) 3.2, Eos % (Auto) 0.2, Baso % (Auto) 0.2, Absolute Neuts (auto) 14.5 H, Absolute Lymphs (auto) 0.97, Nucleated RBC % 0 08/05/22 20:42: PT 14.3, INR 1.1 08/05/22 20:42: Sodium 139, Potassium 4.0, Chloride 110 H, Carbon Dioxide 23.0, Anion Gap 6, BUN 20 H, Creatinine 1.03 H, Estim Creat Clear Calc 45.14, Est GFR (MDRD) Af Amer 68, Est GFR (MDRD) Non-Af 57 L, BUN/Creatinine Ratio 19.4, Glucose 150 H, Calcium 9.1, Total Bilirubin 0.70, AST 18, ALT 20, Alkaline Phosphatase 77, Total Protein 6.9, Albumin 3.6, Globulin 3.3, Albumin/Globulin Ratio 1.1 08/05/22 20:42: Blood Type O POSITIVE, Antibody Screen NEGATIVE 08/06/22 05:41: WBC 15.5 H, RBC 4.22, Hgb 12.4, Hct 40.0, MCV 94.8, MCH 29.4, MCHC 31.0 L, RDW Std Deviation 42.3, RDW Coeff of Gerhard 12.2, Plt Count 273, MPV 9.9, Immature Gran % (Auto) 0.700, Neut % (Auto) 85.1 H, Lymph % (Auto) 9.0 L, [place] % (Auto) 4.6, Eos % (Auto) 0.3, Baso % (Auto) 0.3, Absolute Neuts (auto) 13.2 H, Absolute Lymphs (auto) 1.39, Nucleated RBC % 0 08/06/22 05:41: Sodium 140, Potassium 4.1, Chloride 108 H, Carbon Dioxide 26.0, Anion Gap 6, BUN 20 H, Creatinine 0.98, Estim Creat Clear Calc 47.44, Est GFR (MDRD) Af Amer 73, Est GFR (MDRD) Non-Af 60, BUN/Creatinine Ratio 20.4 H, Glucose 137 H, Calcium 8.5 08/06/22 05:42: POC Glucose 140 H 08/06/22 09:08: POC Glucose 305 H 08/06/22 10:19: POC Glucose 421 H Radiography Diagnostic Testing: Radiology Impression Ribs w/Chest X-Ray 08/05/22 18:05 IMPRESSION: Old right rib fractures. Electronically Signed: Keaton Pineda DO at 20:07 EDT , Brain CT 08/05/22 18:20 IMPRESSION: Normal unenhanced CT scan of the brain. Electronically Signed: Keaton Pineda DO at 18:45 EDT , Cervical Spine CT 08/05/22 18:20 IMPRESSION: Degenerative changes changes and discogenic disease as noted of the cervical spine. Electronically Signed: Keaton Pineda at 18:54 EDT , Hip/Pelvis X-Ray 08/05/22 18:30 IMPRESSION: Possible nondisplaced intertrochanteric fracture of the left femur. Electronically Signed: Keaton Pineda DO at 20:10 EDT , Rhythm Strip Rhythm Strip: Sinus Rhythm Rate: 90 Ectopy: None Physical Exam Const no apparent distress Constitutional Narrative: Patient is somnolent, she does respond to painful stimuli and responds to verbal stimuli but does not carry on a conversation. General Appearance: cooperative, well kempt and well developed HEENT normocephalic, head/scalp atraumatic and moist oral mucous membranes Eyes PERRL, EOMs intact bilaterally and conjunctivae normal Neck supple, no JVD, thyroid normal and no carotid bruits General: trachea midline Resp normal respiratory effort, no retractions, no use of accessory muscles and clear to auscultation bilaterally Auscultation: Negative for rales, rhonchi or wheezes Cardio regular rate, regular rhythm, S1 normal heart sound, S2 normal heart sound, no murmurs, no rub and no gallops GI normal to inspection, nondistended, normoactive bowel sounds, soft to palpation, non-tender and non-distended Extremity no clubbing, cyanosis or edema Skin no rashes or lesions noted General Skin Exam: no breakdown Neuro CN's II-XII intact bilaterally, no focal motor deficits and no sensory deficits noted Neuro Narrative: Patient is somnolent, she responds to painful and verbal stimuli Psych Psych Narrative: Patient is somnolent Assessment & Plan Assessment/Plan (1) Closed intertrochanteric fracture of left hip: PLAN: Plan 1. Left intertrochanteric fracture secondary to osteoporosis-status postop day 0 insertion of intramedullary jules left femur-I talked briefly with the patient's daughter and son, they do not know if the patient will consent to going to an extended care facility for short-term rehab services, I will talk with the patient tomorrow about this, according to patient's daughter, patient is not active at home and is forgetful at times, she still does drive and the daughter states that she lives around the house mostly and does not exercise. #2 type 2 diabetes-patient's blood sugars will be monitored, sliding scale insulin will be administered as needed #3 essential hypertension-patient will remain on her home medication #4 hyperlipidemia-patient is on a statin #5 bipolar disorder-patient does not currently appear to be on any bipolar medication, she is on antidepressants and anxiety medication. #6 chronic pain syndrome-according to the daughter, patient is on medical marijuana at home for pain #7 osteoporosis-patient is on Fosamax Total clinical time spent by myself addressing the patient's medical issues, reviewing all of her data, and collaborating with patient's care team: 50 minutes Charges/Coding Visit Charges Inpatient E&M: 93391 Subs Hosp L2
[2022-08-06] MEDS: 0.9% Normal Saline 1,000 ML 999 ML IV (17:05)
[2022-08-06 17:37] LABS: Bedside Glucose 312 mg/dL (74-106)
[2022-08-06] MEDS: 0.9% Normal Saline 1,000 ML 125 ML IV (18:05)
[2022-08-06] MEDS: Atorvastatin Calcium 20 MG Tablet PO (20:31)
[2022-08-06] MEDS: busPIRone 15 MG TABLET PO (20:31)
[2022-08-06] MEDS: Fluoxetine HCl 40 MG CAPSULE PO (20:33)
[2022-08-06] MEDS: Senna/Docusate Sodium 1 Tablet 2 TABLET PO (20:33)
[2022-08-06 22:03] LABS: Bedside Glucose 193 mg/dL (74-106)
[2022-08-07] VITALS (26 sets, daily range): BP systolic 112–185; BP diastolic 47–100; PULSE 101–120; RESP 16–28; TEMP 36.6–37.7; O2SAT 87–100; BMI 30.1
[2022-08-07] MEDS: Morphine 2 MG/ML Syringe IV ×4 (02:04→21:33)
[2022-08-07] MEDS: 0.9% Normal Saline 1,000 ML 125 ML IV ×2 (02:14→22:10)
[2022-08-07] MEDS: Acetaminophen 325 MG Tablet 650 MG PO (02:35)
[2022-08-07 03:25] LABS: Bedside Glucose 201 mg/dL (74-106)
[2022-08-07 04:06] LABS: Absolute Lymphocyte Count 2.29 X10^3/uL (0.83-4.51); Absolute Neutrophil Count 22.3 X10^3/uL (2.0-7.7); Basophil# 0.03 X10^3/uL; Basophil% 0.1 % (0-1); Eosinophil# 0.01 X10^3/uL; Hematocrit 24.4 % (37-47); Hemoglobin 7.7 g/dL (12.0-15.0); Lymphocyte # 2.29 X10^3/ul (0.83-4.51); Lymphocyte % 8.6 % (19-41); Mean Corp Hgb Conc 31.6 g/dL (32-36); Mean Corpuscular Hgb 29.3 pg (27.0-32.0); Mean Corpuscular Volume 92.8 fL (81-99); Mean Platelet Vol. 9.8 fl (6.2-12.0); Monocyte# 1.74 X10^3/uL; Monocyte% 6.6 % (0-10); NRBC Flagged by Analyzer 0 % (0-5); Neutrophil # 22.31 X10^3/uL (2.7-7.7); Neutrophil % 84.1 % (47-70); POSITIVE DIFFERENTIAL YES; Platelet Count 233 K/mm3 (150-450); RBC Distribution Width CV 12.8 % (11.6-14.6); Red Blood Count 2.63 M/mm3 (4.2-5.4); White Blood Count 26.6 K/mm3 (4.4-11.0)
[2022-08-07] MEDS: tiZANidine HCl 2 MG Tablet 4 MG PO (04:08)
[2022-08-07 04:17] LABS: Differential Indicated SCAN CRITERIA MET
[2022-08-07 04:28] LABS: Anion Gap 10 (5-15); BUN 31 mg/dL (7-18); BUN/Creat Ratio 18.5 RATIO (10-20); Calcium,Total 8.2 mg/dL (8.5-10.1); Chloride 109 mmol/L (98-107); Creatinine, Serum 1.68 mg/dL (0.55-1.02); EST Glomerular Filtration Rate 32 mL/min (>60); Est Glom Filt Rate - Afr Amer 39 mL/min (>60); Estimated Creatinine Clearance 27.68 ml/min; Glucose 190 mg/dL (74-106); Sodium Level 140 mmol/L (136-145)
[2022-08-07] MEDS: Ondansetron 4 MG/2 ML Vial IV ×2 (04:28→22:10)
--- NOTE | 2022-08-07 04:34 | EKG12_ITS ---
Test Reason : CP Blood Pressure : / mmHG Vent. Rate : 121 BPM Atrial Rate : 121 BPM P-R Int : 128 ms QRS Dur : 084 ms QT Int : 356 ms P-R-T Axes : 089 014 052 degrees QTc Int : [address] & T wave abnormality, consider lateral ischemia Abnormal ECG When compared with ECG of 05-AUG-2022 20:53, MANUAL COMPARISON REQUIRED, DATA IS UNCONFIRMED Confirmed by TERRI WRIGHT, KATARINA ([id number]), digital editor WILFRID SÁNCHEZ ([id number]) on 08/07/2022 2:31:43 PM Referred By: Home Valverde Confirmed By:KATARINA MURRAY MD
--- NOTE | 2022-08-07 04:53 | CT_ITS ---
We are attempting to reach an attending provider to discuss findings. An addendum with communication details will be sent when the communication is complete. INDICATION: stroke symptoms EXAMINATION: CT BRAIN - CT Head Stroke Protocol W/O Contrast Injection TECHNIQUE: Multiple axial images were obtained of the head without intravenous contrast. A radiation dose optimization technique was used for this scan. IV Contrast dosage and agent: None. COMPARISON: CT BrainMar 06 2019 FINDINGS: BRAIN PARENCHYMA: No intra- or extra-axial hemorrhage. No evidence of acute infarct. No intracranial mass or mass effect. There is preservation of the land/white matter interface. Posterior fossa structures are unremarkable. CSF SPACES: Appropriate for age. No hydrocephalus. Basal cisterns are patent. CALVARIUM, SKULL BASE, PARANASAL SINUSES AND MASTOID AIR CELLS: Clear. No discrete lytic or blastic abnormalities. ORBITS: Both globes, extraocular muscles, optic nerves and retrobulbar fat appear unremarkable. ASPECTS Score for Acute Strokes: 10 CT/STROKE Brain/Head without Cont IMPRESSION: Negative Brain CT without contrast. Electronically Signed: Trevor Farmer MD at 5:20 EDT ,
--- NOTE | 2022-08-07 05:08 | EKG12_ITS ---
Test Reason : FALL Blood Pressure : / mmHG Vent. Rate : 091 BPM Atrial Rate : 091 BPM P-R Int : 200 ms QRS Dur : 092 ms QT Int : 388 ms P-R-T Axes : 056 -14 031 degrees QTc Int : 477 ms Normal sinus rhythm Normal ECG Confirmed by TERRI WRIGHT, KATARINA ([id number]), editor school photograph WILFRID SÁNCHEZ ([id number]) on 08/07/2022 1:01:31 PM Referred By: Home Valverde Confirmed By:KATARINA MURRAY MD
--- NOTE | 2022-08-07 05:18 | NURSING ---
this rn notified at appx 0430 pt having chest pain, primary rn with pt, and cps notified for stat ekg. this rn went to pt room, pt complained of upset stomach, primary rn medicated for nausea. pt speech at times nonsensical, not following some commands. texted dr to come see pt. asked float rn to do an nih on pt. stroke alert called at [phone]. see stroke documentation
--- NOTE | 2022-08-07 05:47 | CT_ITS ---
We are attempting to reach an attending provider to discuss findings. An addendum with communication details will be sent when the communication is complete. INDICATION: stroke sx EXAMINATION: CT BRAIN WITH CONTRAST TECHNIQUE: Noncontrast axial images were obtained of the brain. Subsequently, routine carotid CT angiogram protocol was performed without and with IV contrast. In addition, images were obtained of the [place]. NASCET criteria using the distal ICAs for comparison were used for evaluation of stenoses. 3D reconstructions were reviewed. A radiation dose optimization technique was used for this scan. IV Contrast dosage and agent: 100mL [id number] COMPARISON: CT BrainJun 2022 5:04am FINDINGS: --CT BRAIN: BRAIN PARENCHYMA: No intra- or extra-axial hemorrhage. No evidence of acute infarct. No intracranial mass or mass effect. There is preservation of the land/white matter interface. Posterior fossa structures are unremarkable. CSF SPACES: Appropriate for age. No hydrocephalus. Basal cisterns are patent. CALVARIUM, SKULL BASE, PARANASAL SINUSES AND MASTOID AIR CELLS: Clear. No discrete lytic or blastic abnormalities. ASPECTS Score for Acute Strokes: 10 --CTA NECK: AORTIC ARCH AND BRANCHES: Normal anatomy, patent. RIGHT CCA: Mild atherosclerosis. No occlusion, significant stenosis or dissection. RIGHT ICA: 30% stenosis at the origin. LEFT CCA: Moderate atherosclerosis. No occlusion, significant stenosis or dissection. LEFT ICA: 50% stenosis at the origin. RIGHT VERTEBRAL ARTERY: No occlusion, significant stenosis or dissection. LEFT VERTEBRAL ARTERY: No occlusion, significant stenosis or dissection. NECK SOFT TISSUES: Unremarkable. --CTA HEAD: --Anterior circulation: ICAs: Moderate calcifications of the carotid siphons. No significant stenosis at the intracranial/visualized segments. ACAs: No significant stenosis at the visualized segments. ACOM: Present. MCAs: No significant stenosis at the visualized segments. There is mild irregularity without significant stenosis at the proximal part of the left M1 segment may be due to atherosclerosis. --Posterior circulation: film composer: No significant stenosis at the visualized segments. BASILAR ARTERY: No significant stenosis. VERTEBRAL ARTERIES: No significant stenosis at the intradural/visualized segments. No evidence of intracranial aneurysm or vascular malformation. CT/CTA Head AND Neck W/ Contrast IMPRESSION: No hemodynamically significant stenosis in the main intracranial arteries are in the arteries of neck. Electronically Signed: Trevor Farmer MD at 6:23 EDT ,
[2022-08-07 05:48] LABS: Allen Test Positive; Base Excess -2 mmol/L (-2 to +2); Bicarbonate 20.7 mmol/L (22-26); Blood Gas Specimen Type ART; PO2 47 mmHG (75-100); SITE L Radial; SO2 89 % (95-99); Total Carbon Dioxide 21 mmol/L; pCO2 23.9 mmHg (35-45); pH 7.55 (7.35-7.45)
--- NOTE | 2022-08-07 05:58 | RAD_ITS ---
INDICATION: sob EXAMINATION/TECHNIQUE: X-RAY - XR Chest 1 View COMPARISON: 08/06/2022 FINDINGS: LINES/DEVICES: None. LUNGS: No consolidation, edema or effusion. No pneumothorax. MEDIASTINUM AND CARDIOVASCULAR STRUCTURES: Cardiac silhouette not enlarged. Central airways and mediastinal contour are unremarkable. BONES AND SOFT TISSUES: Degenerative arthrosis in the shoulders. Deformity of the right humerus most likely due to an old fracture. RAD/Chest 1 View (Portable) IMPRESSION: No radiographic evidence of acute cardiopulmonary disease. Electronically Signed: Trevor Farmer MD at 8:03 EDT ,
--- NOTE | 2022-08-07 06:03 | PN.HOSP_ITS ---
Reason for Visit Reason for Visit: Diagnoses Displaced intertrochanteric fracture of left femur, initial encounter for closed fracture (08/05/22) Fall on same level from slipping, tripping and stumbling without subsequent st riking against object, initial encounter (08/05/22) Subjective Subjective Stroke alert was called at about 4:49 AM on 08/07/2022. Pending as patient was making nonsensical conversation. Hemoglobin had dropped from 12.4 a day prior7.7. Patient had a sinus tach entire day and was complaining of chest pain. Patient was evaluated by stroke neurologist. Upon further questioning nurse stated that patient's was alert and oriented x3 before surgery but after surgery declined cognitively gradually. Blood glucose is not low; 200 and 190. Patient was taken to surgery at about 7:30 AM on 08/06/2022. Per stroke tele-neurologist last time known well would be when patient was taken to surgery. Radiologist called saying that CT head stroke protocol was negative. Per nurse NIH stroke scale was 12 with inability to test left leg secondary to recent fracture and surgery. Patient has some obvious word salad and inability to comprehend most words. Per Teleneurologist it cannot be stated clearly that patient has a stroke. Neither can it be stated that patient does not have a stroke. However patient is not a candidate of thrombolytics by the neurologist assessment. Patient is in [place]. Ordered to give fluids and then get a CTA of head and neck. We will transfer patient to be a progressive care unit after tPA head and neck has been obtained. Will transfer patient to the progressive care unit and do serial NIH's. Objective Data Objective Data Vital Signs: Vital Signs Temp Pulse Resp BP Pulse Ox O2 Del Method O2 Flow Rate 99.5 F H 120 H 28 H 160/59 H 98 Room Air 2 08/07/22 04:21 08/07/22 04:21 08/07/22 04:21 08/07/22 04:21 08/07/22 04:21 08/07/22 04:21 08/06/22 09:30 Oxygen Flow Rate (L/min) 2 Oxygen Delivery Method Room Air Weight: 79.6 kg Body Mass Index (BMI) 30.1 Intake & Output: Intake and Output for Last 24 Hours 08/05/22 08/06/22 08/07/22 23:59 23:59 23:59 Intake Total 3032.50 / 3032.50 1000 / 1000 Output Total 325 / 525 200 / 200 Balance 2707.50 / 2507.50 800 / 800 Lab / Micro Data Result Diagrams: 08/07/22 03:59 08/07/22 03:59 Labs: Laboratory Results - last 24 hr 08/05/22 20:38: Crossmatch See Detail 08/06/22 05:41: WBC 15.5 H, RBC 4.22, Hgb 12.4, Hct 40.0, MCV 94.8, MCH 29.4, MCHC 31.0 L, RDW Std Deviation 42.3, RDW Coeff of Gerhard 12.2, Plt Count 273, MPV 9.9, Immature Gran % (Auto) 0.700, Neut % (Auto) 85.1 H, Lymph % (Auto) 9.0 L, [place] % (Auto) 4.6, Eos % (Auto) 0.3, Baso % (Auto) 0.3, Absolute Neuts (auto) 13.2 H, Absolute Lymphs (auto) 1.39, Nucleated RBC % 0 08/06/22 05:41: Sodium 140, Potassium 4.1, Chloride 108 H, Carbon Dioxide 26.0, Anion Gap 6, BUN 20 H, Creatinine 0.98, Estim Creat Clear Calc 47.44, Est GFR (MDRD) Af Amer 73, Est GFR (MDRD) Non-Af 60, BUN/Creatinine Ratio 20.4 H, Glucose 137 H, Calcium 8.5 08/06/22 05:42: POC Glucose 140 H 08/06/22 09:08: POC Glucose 305 H 08/06/22 10:19: POC Glucose 421 H 08/06/22 16:22: POC Glucose 312 H 08/06/22 21:25: POC Glucose 193 H 08/07/22 02:12: POC Glucose 201 H 08/07/22 03:59: WBC 26.6 H, RBC 2.63 L, Hgb 7.7 L, Hct 24.4 L, MCV 92.8, MCH 29 .3, MCHC 31.6 L, RDW Std Deviation 43.0, RDW Coeff of Gerhard 12.8, Plt Count 233, MPV 9.8, Immature Gran % (Auto) 0.600, Neut % (Auto) 84.1 H, Lymph % (Auto) 8.6 L, [place] % (Auto) 6.6, Eos % (Auto) 0.0, Baso % (Auto) 0.1, Absolute Neuts (auto) 22.3 H, Absolute Lymphs (auto) 2.29, Nucleated RBC % 0, Diff Path Review June08/07/22 03:59: Sodium 140, Potassium 4.0, Chloride 109 H, Carbon Dioxide 21.0, Anion Gap 10, BUN 31 H, Creatinine 1.68 H, Estim Creat Clear Calc 27.68, Est GFR (MDRD) Af Amer 39 L, Est GFR (MDRD) Non-Af 32 L, BUN/Creatinine Ratio 18.5, Glucose 190 H, Calcium 8.2 L ABG Data ABG results: ABG 08/07/22 05:45 Specimen Type ART Sample Site L Radial pH 7.55 H Bicarbonate Actual 20.7 L Total CO2 21 Base Excess -2 O2 Saturation 89 L ABG pCO2 23.9 L ABG pO2 47 L [place] Test Positive Radiography Diagnostic Testing: Radiology Impression Chest X-Ray 08/06/22 04:50 IMPRESSION: No radiographic evidence of acute cardiopulmonary disease. Electronically Signed: Fátima Bucio MD at 21:28 EDT Reading Location ID and State: [place] / Tel , Service support , Hip/Pelvis X-Ray 08/06/22 06:30 IMPRESSION: Intraoperative images obtained for hardware localization. Electronically Signed: Fátima Bucio MD at 23:57 EDT Reading Location ID and State: [id number] / Tel , Service support , Brain CT 08/07/22 04:53 IMPRESSION: Negative Brain CT without contrast. Electronically Signed: Trevor Farmer MD at 5:20 EDT , ADDENDUM: 08/07/22 0529 IMPRESSION: Negative Brain CT without contrast. N.B. : The above Results were Read Back by Trevor Farmer MD to Home Valverde MD, and understanding confirmed on 08/07/2022 05:23:01 (ET). Electronically Signed: Trevor Farmer MD at 5:20 EDT Reading Location ID and State: [facility] / [place] Tel , Service support , ADDENDUM: 08/07/22 0536 IMPRESSION: Negative Brain CT without contrast. N.B. : The above Results were Read Back by Trevor Farmer MD to Home Valverde MD, and understanding confirmed on 08/07/2022 05:29:17 (ET). Electronically Signed: Trevor Farmer MD at 5:20 EDT , Rhythm Strip Rhythm Strip: Sinus Rhythm Rate: 90 Ectopy: None
--- NOTE | 2022-08-07 06:21 | NURSING ---
left msg for melida muller advising her that pt has been moved to [facility].
--- NOTE | 2022-08-07 06:30 | NURSING ---
daughter renzo updated on pt's status. this rn and minnie galo obtained verbal consent for pt to receive blood products from renzo. [employer] chargerminnie moss notified of consent.
[2022-08-07] MEDS: Cefazolin 2 GM in 0.9% Normal Saline 100 ML IV (06:32)
[2022-08-07] MEDS: Enoxaparin 40 MG/0.4 ML Syringe SC (06:37)
[2022-08-07] MEDS: Insulin Lispro 100 UNIT/ML INSULN.PEN SC ×3 (06:44→20:56)
--- NOTE | 2022-08-07 06:47 | MRI_ITS ---
EXAM: MR HEAD WITHOUT INTRAVENOUS CONTRAST CLINICAL INDICATION: CVA. Recent hip surgery. TECHNIQUE: Multiplanar and multisequence MR images of the brain were obtained without intravenous contrast. COMPARISON: CT head without contrast and CTA head and neck with contrast 08/07/2022. FINDINGS: BRAIN AND EXTRA-AXIAL SPACES: Unremarkable. No intra- or extra-axial hemorrhage. No intracranial mass or mass effect. Posterior fossa structures are unremarkable. Ventricles are appropriate for age. No hydrocephalus. Basal cisterns are patent. No diffusion restriction to suspect acute or subacute ischemic infarct. SELLA: Unremarkable. Normal sella turcica, pituitary gland, infundibular stalk, optic chiasm and hypothalamus. AUDITORY SYSTEM: Unremarkable. The internal auditory canals are patent. BONES/JOINTS: Unremarkable. No discrete lytic or blastic abnormalities. SINUSES: Unremarkable as visualized. Clear. MASTOID AIR CELLS: Unremarkable as visualized. Clear. ORBITS: Unremarkable as visualized. Both globes, extraocular muscles, optic nerves and retrobulbar fat appear unremarkable. VASCULATURE: Unremarkable as visualized. Normal flow voids in the major intracranial circulation. MRI/Brain without Contrast IMPRESSION: 1. No MRI evidence of acute or subacute ischemic infarct. 2. Limited study was performed without FLAIR sequence for stroke evaluation. Electronically Signed: Adria Feliz MD at 11:36 EDT ,
--- NOTE | 2022-08-07 07:06 | PCM.PN.ORT ---
Subjective Subjective Patient seen and examined. Reports pain is improved in her left hip. She is unclear about the details of last evening which resulted in a stroke alert and stroke work-up due to confusion. She states people kept coming in my room . She appears comfortable this morning. She is answering questions appropriately. She denies any fevers, chills, nausea or vomiting, chest pain or shortness of breath, numbness or tingling. Objective Data Objective Data Vital Signs: Vital Signs Temp Pulse Resp BP Pulse Ox O2 Del Method O2 Flow Rate 97.9 F 109 H 18 116/47 L 94 Nasal Cannula 3 08/07/22 06:05 08/07/22 06:05 08/07/22 06:09 08/07/22 06:05 08/07/22 06:09 08/07/22 06:09 08/07/22 06:09 Oxygen Flow Rate (L/min) 3 Oxygen Delivery Method Nasal Cannula Weight: 175 lb 7.807 oz Body Mass Index (BMI) 30.1 Intake & Output: Intake and Output for Last 24 Hours 08/05/22 08/06/22 08/07/22 23:59 23:59 23:59 Intake Total 3032.50 / 3032.50 1470.83 / 1470.83 Output Total 325 / 525 200 / 200 Balance 2707.50 / 2507.50 1270.83 / 1270.83 Lab / Micro Data Result Diagrams: 08/07/22 03:59 08/07/22 03:59 Labs: Laboratory Results - last 24 hr 08/05/22 20:38: Crossmatch See Detail 08/06/22 09:08: POC Glucose 305 H 08/06/22 10:19: POC Glucose 421 H 08/06/22 16:22: POC Glucose 312 H 08/06/22 21:25: POC Glucose 193 H 08/07/22 02:12: POC Glucose 201 H 08/07/22 03:59: WBC 26.6 H, RBC 2.63 L, Hgb 7.7 L, Hct 24.4 L, MCV 92.8, MCH 29.3, MCHC 31.6 L, RDW Std Deviation 43.0, RDW Coeff of Gerhard 12.8, Plt Count 233, MPV 9.8, Immature Gran % (Auto) 0.600, Neut % (Auto) 84.1 H, Lymph % (Auto) 8.6 L, Nuckolls % (Auto) 6.6, Eos % (Auto) 0.0, Baso % (Auto) 0.1, Absolute Neuts (auto) 22.3 H, Absolute Lymphs (auto) 2.29, Nucleated RBC % 0, Diff Path Review June08/07/22 03:59: Sodium 140, Potassium 4.0, Chloride 109 H, Carbon Dioxide 21.0, Anion Gap 10, BUN 31 H, Creatinine 1.68 H, Estim Creat Clear Calc 27.68, Est GFR (MDRD) Af Amer 39 L, Est GFR (MDRD) Non-Af 32 L, BUN/Creatinine Ratio 18.5, Glucose 190 H, Calcium 8.2 L 08/07/22 06:20: Ammonia 25.0 ABG Data ABG results: ABG 08/07/22 05:45 Specimen Type ART Sample Site L Radial pH 7.55 H Bicarbonate Actual 20.7 L Total CO2 21 Base Excess -2 O2 Saturation 89 L ABG pCO2 23.9 L ABG pO2 47 L Vaughn Test Positive Radiography Diagnostic Testing: Radiology Impression Chest X-Ray 08/06/22 04:50 IMPRESSION: No radiographic evidence of acute cardiopulmonary disease. Electronically Signed: Fátima Bucio MD at 21:28 EDT Reading Location ID and State: [place] / Tel , Service support , Hip/Pelvis X-Ray 08/06/22 06:30 IMPRESSION: Intraoperative images obtained for hardware localization. Electronically Signed: Fátima Bucio MD at 23:57 EDT Reading Location ID and State: [id number] / Tel , Service support , Brain CT 08/07/22 04:53 IMPRESSION: Negative Brain CT without contrast. Electronically Signed: Trevor Farmer MD at 5:20 EDT , ADDENDUM: 08/07/22 0529 IMPRESSION: Negative Brain CT without contrast. N.B. : The above Results were Read Back by Trevor Farmer MD to Home Valverde MD, and understanding confirmed on 08/07/2022 05:23:01 (ET). Electronically Signed: Trevor Farmer MD at 5:20 EDT Reading Location ID and State: [facility] / [place] Tel , Service support , ADDENDUM: 08/07/22 0536 IMPRESSION: Negative Brain CT without contrast. N.B. : The above Results were Read Back by Trevor Farmer MD to Home aVlverde MD, and understanding confirmed on 08/07/2022 05:29:17 (ET). Electronically Signed: Trevor Farmer MD at 5:20 EDT Reading Location ID and State: [facility] / [place] Tel , Service support , Head/Neck CTA 08/07/22 05:47 IMPRESSION: No hemodynamically significant stenosis in the main intracranial arteries are in the arteries of neck. Electronically Signed: Trevor Farmer MD at 6:23 EDT Reading Location ID and State: [facility] / [place] Tel , Service support , Rhythm Strip Rhythm Strip: Sinus Rhythm Rate: 90 Ectopy: None Physical Exam Narrative General - A&Ox3, NAD. VSS/AF Left lower extremity -proximal incisional dressing is saturated with serosanguineous fluid otherwise clean dry and intact. No cyst noted. Compartments are soft and compressible without obvious outward signs of expanding hematoma. SILT Sural, Saphenous, SPN, DPN, Tibial N. distributions. DP, PT 2+. BCR. DF, PF, EHL 5/5. No calf TTP. Assessment & Plan Assessment/Plan (1) Closed intertrochanteric fracture of left hip: PLAN: POD#1 s/p left femur CMN -Significant drop in hemoglobin from preoperative 12.4 to 7.7 this morning. I certainly expect some of this is due to acute blood loss anemia secondary to surgery and some postoperative bleeding as well as dilutionary component. I do not suspect an obvious subcutaneous or intramuscular hematoma on exam this morning. I ordered a recheck of her H&H at noon today. Further work-up of acute anemia may be considered. - Pain control -judicious use of narcotics given postoperative confusion. Defer to primary regarding delirium/confusion work-up. - Medicine following for medical management - PT/OT-weightbearing as tolerated left lower extremity - DVT PPX -Lovenox given this morning, DAMIENs, KENISHA espino, early mobilization - Case management - D/C planning
[2022-08-07 07:09] LABS: Bedside Glucose 197 mg/dL (74-106)
[2022-08-07 07:43] LABS: Lactic Acid 2.2 mmol/L (0.4-1.9)
[2022-08-07 07:43] LABS: Troponin-I HS 30 pg/mL (3.0-54.0)
[2022-08-07 07:44] LABS: Vitamin D,25 Hydroxy 99.6 ng/mL
--- NOTE | 2022-08-07 07:56 | NURSING ---
Pt passed dysphagia screening, pt able to swallow with no difficulties
--- NOTE | 2022-08-07 08:45 | CASEMGMT ---
Discharge Planning SNF list created and given to SW. Anum Soler, Discharge Planning Asst.
[2022-08-07 09:14] LABS: Bacteria 0 SEEN /hpf (None Seen); Mucous, Urine 0 SEEN /hpf (<or=2+); Red Blood Cells-Urine 0 SEEN /hpf (0-5)
[2022-08-07 09:21] LABS: Color, Urine Yellow (Yellow); Glucose, Dipstick 250 mg/dl (Normal); Ketone-Dipstick 5 mg/dl (Negative); Leukocyte Esterase-Dipstick 25 /ul (Negative); Nitrite-Dipstick Negative (Negative); Occult Blood-Urine Negative /ul (Negative); Protein-Dipstick 30 mg/dl (Negative); Specific Gravity, Urine 1.015 (1.002-1.030); Urine Bilirubin Dipstick Negative (Negative); Urine Clarity Sl. Cloudy (Clear); Urine Urobilinogen Normal (Normal)
[2022-08-07 09:28] LABS: Squamous Epithelial Cells - UA 0-5 SEEN /hpf (5-10); White Blood Cells 0-5 SEEN /hpf (0-5)
[2022-08-07] MEDS: LORazepam 2 MG/ML Syringe 1 MG IV (09:48)
[2022-08-07] MEDS: 0.9% Saline Lock 10 ML Syringe IV ×4 (09:48→21:33)
[2022-08-07 10:13] LABS: Troponin-I HS 30 pg/mL (3.0-54.0)
[2022-08-07 10:31] LABS: Reflex Lactate? Y
[2022-08-07 11:01] LABS: Lactic Acid 2.1 mmol/L (0.4-1.9)
[2022-08-07] MEDS: Ceftriaxone 1 GM/50 ML BAG IV (11:31)
--- NOTE | 2022-08-07 11:45 | CASEMGMT ---
RN CM called daughterPam, for initial transition planning/care coordination assessment as patient is confused. RN JULISSA introduced self and role at [facility]. Daughter willing to participate in assessment and is able to answer all questions appropriately. Care providers, pharmacy, and demographics verified. Daughter wishes for patient to discharge to RU/SNF for additional therapy, will monitor progress with therapy, SW notified Daughter states she has no further needs or concerns at this time. CM to follow for discharge planning needs that may arise. PCP: Merlin Specialists: none Preferred Pharmacy: [facility] Insurance: [facility] Dual, [employer] Prescription Benefit: yes Living Will/HPOA: daughter not sure LNOK: daughter, son, significant other Living Arrangements: Patient lives with significant other and son in a mobile home with 4 steps and railing to enter the home. Patient was independent at home. Transportation: self, son DME/HHC: patient has shower chair, raised toilet, grab bars, rollator at home. Patient is active with [facility]. Will monitor progress with therapy Disposition Plan: TBD, anticipate RU vs SNF pending therapy and insurance approval. Mia ROCAN, RN, CM
--- NOTE | 2022-08-07 12:26 | CASEMGMT ---
Physician spoke with patient's daughter Joo and she was open to patient going to [facility] Acute Rehab Unit. Therapy has not seen patient yet so SW will make referral to Acute Rehab once patient has therapy. Corinne RAMON
[2022-08-07] MEDS: Nystatin Powder 15gm Bottle 1 APPLIC TOPICAL ×2 (12:38→20:56)
[2022-08-07] MEDS: Fluoxetine HCl 40 MG CAPSULE PO (12:42)
[2022-08-07] MEDS: Tolterodine Tartrate 2 MG CAP.SA PO (12:42)
[2022-08-07] MEDS: Pantoprazole Sodium 20 MG Tablet PO (12:42)
[2022-08-07] MEDS: Senna/Docusate Sodium 1 Tablet 2 TABLET PO (12:42)
[2022-08-07] MEDS: Loratadine 10 MG Tablet PO (12:42)
[2022-08-07] MEDS: busPIRone 15 MG TABLET PO (12:43)
[2022-08-07 13:00] LABS: Absolute Lymphocyte Count 1.52 X10^3/uL (0.83-4.51); Absolute Neutrophil Count 13.7 X10^3/uL (2.0-7.7); Basophil# 0.01 X10^3/uL; Basophil% 0.1 % (0-1); Eosinophil# 0.02 X10^3/uL; Eosinophils% 0.1 % (0-5); Hematocrit 21.1 % (37-47); Hemoglobin 6.6 g/dL (12.0-15.0); Lymphocyte # 1.52 X10^3/ul (0.83-4.51); Lymphocyte % 9.3 % (19-41); Mean Corp Hgb Conc 31.3 g/dL (32-36); Mean Corpuscular Hgb 29.7 pg (27.0-32.0); Mean Platelet Vol. 9.5 fl (6.2-12.0); Monocyte# 1.03 X10^3/uL; Monocyte% 6.3 % (0-10); NRBC Flagged by Analyzer 0 % (0-5); Neutrophil % 83.4 % (47-70); Platelet Count 155 K/mm3 (150-450); RBC Distribution Width CV 12.8 % (11.6-14.6); RBC Distribution Width SD 44.3 fl (35.1-43.9); Red Blood Count 2.22 M/mm3 (4.2-5.4); White Blood Count 16.4 K/mm3 (4.4-11.0)
[2022-08-07 13:03] LABS: Pathologist Review Reviewed
[2022-08-07 13:08] LABS: Bedside Glucose 231 mg/dL (74-106)
[2022-08-07 13:18] LABS: Troponin-I HS 25 pg/mL (3.0-54.0)
--- NOTE | 2022-08-07 13:30 | CT_ITS ---
CT LEFT LOWER EXTREMITY WITH 3-D IMAGING CLINICAL INDICATION: Anemia with wound bleeding. History of left dynamic hip screw placement. TECHNIQUE: Contiguous axial images of the left hip were obtained without contrast. Coronal and sagittal reconstruction and bone and soft tissue algorithm images were provided for interpretation. RADIATION DOSAGE (If Supplied By Facility): CTDIvol = ( 15.44 ) mGy, DLP = ( 717.99 ) mGycm COMPARISON: FINDINGS: Bones: Generalized osteopenia. Arthrosis of the left hip. Dynamic hip screw traversing the intertrochanteric fracture without callus formation. No complications of the osseous structures. Soft Tissues: Large soft tissue mass adjacent to the femoral head with displacement of the gluteal musculature and extension of the soft tissue mass proximally. Findings compatible with hematoma. Generalized muscle atrophy. Vascular calcification. Minimal soft tissue gas, likely secondary to surgical intervention. CT/Extremity Lower without Contra IMPRESSION: Osteopenia with postsurgical changes dynamic hip screw placement. Impacted comminuted intertrochanteric fracture with no callus formation. Soft tissue mass adjacent to the proximal femur extending proximally behind the gluteal musculature compatible with hematoma. Electronically Signed: Ajit Salcido MD at 14:26 EDT ,
[2022-08-07 18:13] LABS: Bedside Glucose 175 mg/dL (74-106)
--- NOTE | 2022-08-07 19:03 | PCM.PN.HOSP ---
Reason for Visit Reason for Visit: Diagnoses Displaced intertrochanteric fracture of left femur, initial encounter for closed fracture (08/05/22) Fall on same level from slipping, tripping and stumbling without subsequent striking against object, initial encounter (08/05/22) Subjective Subjective Patient was seen and examined today, had extensive conversations with the patient and her daughter who was in the room at the time my examination today. A stroke alert was called on the patient early this morning, she had difficulty with her speech, an MRI was ordered today but the patient was not able to sit still for the MRI and it was a poor quality study, there was no MRI evidence of acute or subacute ischemic infarct but the study was limited. Upon my examination, patient responded appropriately to most of my questions, she did have trouble finding words at times but had no visible neurological deficits. I suspect patient may have had an adverse reaction to a narcotic or perhaps Zanaflex, we will need to watch the patient for side effects from narcotics, I have stopped her Zanaflex. Patient's hemoglobin dropped precipitously this morning, her hemoglobin earlier this morning was 7.7, yesterday it was 12.4. She was given 1 unit of packed red blood cells and her hemoglobin was repeated, it was 6.6 at approximately 1 PM today, I ordered 2 more units of packed red blood cells, she has no evidence of rectal bleeding, hematemesis, or overt severe blood loss, there is some drainage from her surgical incision site, I talked multiple times with orthopedic surgery today, a CT of her left upper leg was obtained today which showed presence of a hematoma. At this time there is no plans on surgically exploring the area. I explained to the patient and the patient's family that her blood count will be repeated tonight. I also told the patient that I felt it was necessary for her to go to a rehab facility or nursing home facility for short-term rehab services rather than go home from the hospital. Patient did not appear to give me any pushback about this. Objective Data Objective Data Vital Signs: Vital Signs Temp Pulse Resp BP Pulse Ox O2 Del Method O2 Flow Rate 98.3 F 110 H 17 112/89 H 97 Nasal Cannula 2 08/07/22 18:25 08/07/22 18:25 08/07/22 18:25 08/07/22 18:25 08/07/22 18:25 08/07/22 18:25 08/07/22 18:25 Oxygen Flow Rate (L/min) 2 Oxygen Delivery Method Nasal Cannula Weight: 79.6 kg Body Mass Index (BMI) 30.1 Intake & Output: Intake and Output for Last 24 Hours 08/05/22 08/06/22 08/07/22 23:59 23:59 23:59 Intake Total 3032.50 / 3032.50 3060.00 / 3060.00 Output Total 325 / 525 200 / 200 Balance 2707.50 / 2507.50 2860.00 / 2860.00 Lab / Micro Data Result Diagrams: 08/07/22 12:52 08/07/22 03:59 Labs: Laboratory Results - last 24 hr 08/05/22 20:38: Crossmatch See Detail 08/05/22 20:38: Crossmatch See Detail 08/05/22 21:00: Vitamin D 25-Hydroxy 99.6 08/06/22 21:25: POC Glucose 193 H 08/07/22 02:12: POC Glucose 201 H 08/07/22 03:59: WBC 26.6 H, RBC 2.63 L, Hgb 7.7 L, Hct 24.4 L, MCV 92.8, MCH 29.3, MCHC 31.6 L, RDW Std Deviation 43.0, RDW Coeff of Gerhard 12.8, Plt Count 233, MPV 9.8, Immature Gran % (Auto) 0.600, Neut % (Auto) 84.1 H, Lymph % (Auto) 8.6 L, Emmons % (Auto) 6.6, Eos % (Auto) 0.0, Baso % (Auto) 0.1, Absolute Neuts (auto) 22.3 H, Absolute Lymphs (auto) 2.29, Nucleated RBC % 0, Diff Path Review Reviewed 08/07/22 03:59: Sodium 140, Potassium 4.0, Chloride 109 H, Carbon Dioxide 21.0, Anion Gap 10, BUN 31 H, Creatinine 1.68 H, Estim Creat Clear Calc 27.68, Est GFR (MDRD) Af Amer 39 L, Est GFR (MDRD) Non-Af 32 L, BUN/Creatinine Ratio 18.5, Glucose 190 H, Calcium 8.2 L 08/07/22 06:20: Ammonia 25.0 08/07/22 06:20: Lactic Acid 2.2 H* 08/07/22 06:42: POC Glucose 197 H 08/07/22 07:15: Troponin I High Sens 30 08/07/22 08:45: Urine Color Yellow, Urine Clarity Sl. Cloudy, Urine pH 5.0, Ur Specific [place] 1.015, Urine Protein 30 H, Urine Glucose (UA) 250 H, Urine Ketones 5 H, Urine Occult Blood Negative, Urine Nitrite Negative, Urine Bilirubin Negative, Urine Urobilinogen Normal, Ur Leukocyte Esterase 25 H, Urine RBC 0 SEEN, Urine WBC 0-5 SEEN, Ur Squamous Epith Cells 0-5 SEEN, Urine Bacteria 0 SEEN, Urine Mucus 0 SEEN 08/07/22 09:25: Troponin I High Sens 30 08/07/22 09:40: Lactic Acid 2.1 H* 08/07/22 12:35: POC Glucose 231 H 08/07/22 12:52: Troponin I High Sens 25 08/07/22 12:52: WBC 16.4 H, RBC 2.22 L, Hgb 6.6 L, Hct 21.1 L, MCV 95.0, MCH 29.7, MCHC 31.3 L, RDW Std Deviation 44.3 H, RDW Coeff of Gerhard 12.8, Plt Count 155, MPV 9.5, Immature Gran % (Auto) 0.800, Neut % (Auto) 83.4 H, Lymph % (Auto) 9.3 L, Emmons % (Auto) 6.3, Eos % (Auto) 0.1, Baso % (Auto) 0.1, Absolute Neuts (auto) 13.7 H, Absolute Lymphs (auto) 1.52, Nucleated RBC % 0 08/07/22 17:34: POC Glucose 175 H ABG Data ABG results: ABG 08/07/22 05:45 Specimen Type ART Sample Site L Radial pH 7.55 H Bicarbonate Actual 20.7 L Total CO2 21 Base Excess -2 O2 Saturation 89 L ABG pCO2 23.9 L ABG pO2 47 L Vaughn Test Positive Radiography Diagnostic Testing: Radiology Impression Chest X-Ray 08/06/22 04:50 IMPRESSION: No radiographic evidence of acute cardiopulmonary disease. Electronically Signed: Fátima Bucio MD at 21:28 EDT Reading Location ID and State: [id number] / Tel , Service support , Hip/Pelvis X-Ray 08/06/22 06:30 IMPRESSION: Intraoperative images obtained for hardware localization. Electronically Signed: Fátima Bucio MD at 23:57 EDT Reading Location ID and State: [id number] / Tel , Service support , Brain CT 08/07/22 04:53 IMPRESSION: Negative Brain CT without contrast. Electronically Signed: Trevor Farmer MD at 5:20 EDT , ADDENDUM: 08/07/22 0529 IMPRESSION: Negative Brain CT without contrast. N.B. : The above Results were Read Back by Trevor Farmer MD to Home Valverde MD, and understanding confirmed on 08/07/2022 05:23:01 (ET). Electronically Signed: Trevor Farmer MD at 5:20 EDT , ADDENDUM: 08/07/22 0536 IMPRESSION: Negative Brain CT without contrast. N.B. : The above Results were Read Back by Trevor Farmer MD to Home Valverde MD, and understanding confirmed on 08/07/2022 05:29:17 (ET). Electronically Signed: Trevor Farmer MD at 5:20 EDT , Head/Neck CTA 08/07/22 05:47 IMPRESSION: No hemodynamically significant stenosis in the main intracranial arteries are in the arteries of neck. Electronically Signed: Trevor Farmer MD at 6:23 EDT , ADDENDUM: 08/07/22 0736 IMPRESSION: No hemodynamically significant stenosis in the main intracranial arteries are in the arteries of neck. N.B. : The above Results were Read Back by Trevor Farmer MD to Home Valverde and understanding confirmed on 08/07/2022 07:29:46 (ET). Electronically Signed: Trevor Farmer MD at 6:23 EDT , Chest X-Ray 08/07/22 05:58 IMPRESSION: No radiographic evidence of acute cardiopulmonary disease. Electronically Signed: Trevor Farmer MD at 8:03 EDT , Brain MRI 08/07/22 06:47 IMPRESSION: 1. No MRI evidence of acute or subacute ischemic infarct. 2. Limited study was performed without FLAIR sequence for stroke evaluation. Electronically Signed: Adria Feliz MD at 11:36 EDT , Lower Extremity CT 08/07/22 13:30 IMPRESSION: Osteopenia with postsurgical changes dynamic hip screw placement. Impacted comminuted intertrochanteric fracture with no callus formation. Soft tissue mass adjacent to the proximal femur extending proximally behind the gluteal musculature compatible with hematoma. Electronically Signed: Ajit Salcido MD at 14:26 EDT , Rhythm Strip Rhythm Strip: Sinus Rhythm Rate: 90 Ectopy: None Physical Exam Const Constitutional Narrative: Patient is somewhat somnolent, she does respond to simple questions appropriately for the most part, she did not seem to understand that she had had a hip fracture. General Appearance: cooperative, well kempt and well developed Orientation / Consciousness: oriented to person HEENT normocephalic, head/scalp atraumatic and moist oral mucous membranes Eyes PERRL, EOMs intact bilaterally and conjunctivae normal Neck supple, no JVD, thyroid normal and no carotid bruits General: trachea midline Resp normal respiratory effort, no retractions, no use of accessory muscles and clear to auscultation bilaterally Auscultation: Negative for rales, rhonchi or wheezes Cardio regular rate, regular rhythm, S1 normal heart sound, S2 normal heart sound, no murmurs, no rub and no gallops GI normal to inspection, nondistended, normoactive bowel sounds, soft to palpation, non-tender and non-distended Skin no rashes or lesions noted General Skin Exam: no breakdown Neuro oriented x3, CN's II-XII intact bilaterally, no focal motor deficits and no sensory deficits noted Neuro Narrative: Patient is somewhat somnolent, she does respond to simple questions appropriately, she does not appear to have any dysarthria at the time my examination. Sensorium / Orientation: awake and alert Psych Psych Narrative: Patient is somewhat somnolent, she does respond appropriately to simple questions Assessment & Plan Assessment/Plan (1) Acute delirium: (2) Closed intertrochanteric fracture of left hip: PLAN: Plan 1. Left intertrochanteric fracture secondary to osteoporosis-status postop day 1 insertion of intramedullary jules left femur-again I talked extensively with orthopedic surgery today due to the patient's drop in her hemoglobin, at this time there is no plan for surgical intervention, she does not appear to have a hematoma in the left leg, I assume that her drop in hemoglobin could be from the hip fracture and her surgery. She will be monitored for any signs of blood loss. #2 type 2 diabetes-patient's blood sugars will be monitored, sliding scale insulin will be administered as needed #3 essential hypertension-patient will remain on her home medication #4 hyperlipidemia-patient is on a statin #5 bipolar disorder-patient does not currently appear to be on any bipolar medication, she is on antidepressants and anxiety medication. #6 chronic pain syndrome-according to the daughter, patient is on medical marijuana at home for pain #7 osteoporosis-patient is on Fosamax #8 mild encephalopathy-possibly secondary to medication reaction (narcotics, muscle relaxant)-patient will be monitored, patient does not have any evidence of an acute stroke at this time per my evaluation. MRI was not a good study today, she will be reevaluated tomorrow and perhaps will need a head CT if we need to definitely rule out a significant stroke. #9 acute blood loss anemia-probably secondary to blood loss from surgery-etiology is unclear at this point, patient will be monitored for any signs of blood loss, hemoglobin will be rechecked tonight after she receives her packed red blood cells. Total clinical time spent by myself addressing the patient's medical issues, reviewing all of her data, and collaborating with patient's care team: 50 minutes Charges/Coding Visit Charges Inpatient E&M: 43497 [facility] Hosp L3
[2022-08-07 21:19] LABS: Bedside Glucose 180 mg/dL (74-106)
[2022-08-07 22:34] LABS: Hematocrit 28.9 % (37-47); Hemoglobin 9.7 g/dL (12.0-15.0)
[2022-08-08] VITALS (15 sets, daily range): BP systolic 147–190; BP diastolic 56–100; PULSE 110–130; RESP 14–18; TEMP 36.4–37.1; O2SAT 94–98; BMI 30.1
[2022-08-08] MEDS: LORazepam 2 MG/ML Syringe 0.5 MG IV (00:35)
[2022-08-08] MEDS: hydrALAZINE 20 MG/ML Vial 10 MG IV (00:36)
--- NOTE | 2022-08-08 01:00 | NURSING ---
pt very agitated and confused throughout the night, pulling off tele, and oxygen multiple times. Attempting to get out of bed. Attempted to re-orient and educate on hip fx precautions. MD made aware, x1 ativan given. Called and updated pts daughter Pam.
[2022-08-08] MEDS: Metoprolol Tartrate 5 MG/5 ML Vial IV (04:00)
[2022-08-08] MEDS: 0.9% Normal Saline 1,000 ML 125 ML IV ×3 (05:14→19:41)
[2022-08-08] MEDS: Insulin Lispro 100 UNIT/ML INSULN.PEN SC ×4 (06:33→21:08)
[2022-08-08 06:50] LABS: Cholesterol 122 mg/dL (200); High Density Lipoprotein 35 mg/dL; Triglycerides 151 mg/dL; Very Low Density Lipoprotein 30 mg/dL (5-40)
[2022-08-08 06:52] LABS: Bedside Glucose 249 mg/dL (74-106)
[2022-08-08] MEDS: hydrALAZINE 20 MG/ML Vial IV (07:00)
[2022-08-08] MEDS: hydrALAZINE 20 MG/ML Vial 5 MG IV ×2 (09:33→21:12)
[2022-08-08] MEDS: Ondansetron 4 MG/2 ML Vial IV ×2 (09:33→19:42)
[2022-08-08] MEDS: Ceftriaxone 1 GM/50 ML BAG IV (10:41)
[2022-08-08] MEDS: Ketorolac 15 MG/ML Vial IV ×2 (11:21→17:59)
--- NOTE | 2022-08-08 11:41 | CASEMGMT ---
SW is aware of SDOH referral. However, patient is currently confused. SW will continue to follow. Corinne Beltran MSW YENNY
[2022-08-08 11:48] LABS: Anion Gap 8 (5-15); BUN 29 mg/dL (7-18); BUN/Creat Ratio 26.9 RATIO (10-20); Calcium,Total 8.3 mg/dL (8.5-10.1); Chloride 111 mmol/L (98-107); Creatinine, Serum 1.08 mg/dL (0.55-1.02); EST Glomerular Filtration Rate 54 mL/min (>60); Est Glom Filt Rate - Afr Amer 65 mL/min (>60); Estimated Creatinine Clearance 43.05 ml/min; Glucose 263 mg/dL (74-106); Potassium 3.5 mmol/L (3.5-5.1); Sodium Level 140 mmol/L (136-145)
[2022-08-08 12:20] LABS: Bedside Glucose 260 mg/dL (74-106)
--- NOTE | 2022-08-08 15:01 | CASEMGMT ---
SW reviewed patient's therapy notes and patient did not do well. Patient is currently confused so it is unlikely Acute Rehab will accept patient right now. SW met with patient's daughter. Introduced self and role at [facility]. SW provided patient with?a list of [facility] facility providers including quality and resource use data and consistent with patient?s preferred geographic region, medical needs, and insurance network were provided from the [facility] Guide. SW explained that in the event patient is not able to go to the Acute Rehab Unit the next option would be penitentiary facility. Patient's daughter was concerned and does not want patient discharged until her confusion clears up. SW told patient's daughter SW will continue to follow and assist with d/c planning. Corinne RAMON
[2022-08-08 17:05] LABS: Bedside Glucose 236 mg/dL (74-106)
--- NOTE | 2022-08-08 17:37 | PCM.PN.ORT ---
Subjective Subjective Patient seen and examined. Family at bedside. Significant agitation and confusion noted overnight and into the day today. Patient's status post 3 units packed red blood cells yesterday. Patient will respond yes or no to questions but is otherwise not conversant. Objective Data Objective Data Vital Signs: Vital Signs Temp Pulse Resp BP Pulse Ox O2 Del Method O2 Flow Rate 97.7 F L 113 H 14 167/66 H 96 Room Air 2 08/08/22 16:55 08/08/22 16:55 08/08/22 16:55 08/08/22 16:55 08/08/22 16:55 08/08/22 16:55 08/08/22 07:30 Oxygen Flow Rate (L/min) 2 Oxygen Delivery Method Room Air Weight: 175 lb 7.807 oz Body Mass Index (BMI) 30.1 Intake & Output: Intake and Output for Last 24 Hours 08/06/22 08/07/22 08/08/22 23:59 23:59 23:59 Intake Total 3032.50 / 3032.50 3460.00 / 3460.00 1781.25 / 1781.25 Output Total 325 / 525 200 / 200 Balance 2707.50 / 2507.50 3260.00 / 3260.00 1781.25 / 1781.25 Lab / Micro Data Result Diagrams: 08/07/22 22:24 08/08/22 11:07 Labs: Laboratory Results - last 24 hr 08/05/22 20:38: Crossmatch See Detail 08/07/22 17:34: POC Glucose 175 H 08/07/22 20:51: POC Glucose 180 H 08/07/22 22:24: Hgb 9.7 L, Hct 28.9 L 08/08/22 05:07: Triglycerides 151, Cholesterol 122, LDL Cholesterol 57, VLDL Cholesterol 30, HDL Cholesterol 35 L 08/08/22 06:24: POC Glucose 249 H 08/08/22 11:07: Sodium 140, Potassium 3.5, Chloride 111 H, Carbon Dioxide 21.0, Anion Gap 8, BUN 29 H, Creatinine 1.08 H, Estim Creat Clear Calc 43.05, Est GFR (MDRD) Af Amer 65, Est GFR (MDRD) Non-Af 54 L, BUN/Creatinine Ratio 26.9 H, Glucose 263 H, Calcium 8.3 L 08/08/22 11:49: POC Glucose 260 H 08/08/22 16:40: POC Glucose 236 H Micro: Microbiology 08/07/22 08:45 Urine, Random Urine Culture - Preliminary Culture exhibits no growth. Rhythm Strip Rhythm Strip: Sinus Rhythm Rate: 90 Ectopy: None Physical Exam Narrative General - A&Ox person, agitated. Left lower extremity -wiggles toes spontaneously. DP pulse 2+. Sanguinous drainage noted on dressings, with diffuse subcutaneous ecchymosis noted along the lateral hip. Compartments are soft and compressible. No impending skin necrosis noted. No palpable fluctuance. Assessment & Plan Assessment/Plan (1) Closed intertrochanteric fracture of left hip: PLAN: POD#2 s/p left femur CMN -Patient has significant delirium still present. Judicious use of narcotic pain medicine. Defer to primary regarding further management of acute delirium -Acute blood loss anemia in the setting of subcutaneous and likely intramuscular hematoma. Recheck CBC in a.m. Hold Lovenox at this time. Dry sterile dressing changes PRN. SCDs and teds for DVT prophylaxis. No plan to return to the OR at this time. -Mobilize with therapy as tolerated. Weightbearing as tolerated left lower extremity. -Will follow
[2022-08-08] MEDS: Acetaminophen 325 MG Tablet 650 MG PO (17:53)
--- NOTE | 2022-08-08 18:32 | PN.HOSP_ITS ---
Reason for Visit Reason for Visit: Diagnoses Disorientation, unspecified (08/05/22) Displaced intertrochanteric fracture of left femur, initial encounter for closed fracture (08/05/22) Fall on same level from slipping, tripping and stumbling without subsequent striking against object, initial encounter (08/05/22) Subjective Subjective Patient was seen and examined today, she appeared confused this morning and I made the decision to stop her IV narcotics, I have decided to give the patient IV Toradol for pain-she will be watched closely for any evidence of GI bleeding. She has had no evidence of any GI bleeding at this time, her hemoglobin appears to be stable at this time, I talked extensively with her family in person today during one of my visits. Objective Data Objective Data Vital Signs: Vital Signs Temp Pulse Resp BP Pulse Ox O2 Del Method O2 Flow Rate 97.7 F L 113 H 14 167/66 H 96 Room Air 2 08/08/22 16:55 08/08/22 16:55 08/08/22 16:55 08/08/22 16:55 08/08/22 16:55 08/08/22 16:55 08/08/22 07:30 Oxygen Flow Rate (L/min) 2 Oxygen Delivery Method Room Air Weight: 79.6 kg Body Mass Index (BMI) 30.1 Intake & Output: Intake and Output for Last 24 Hours 08/06/22 08/07/22 08/08/22 23:59 23:59 23:59 Intake Total 3032.50 / 3032.50 3460.00 / 3460.00 1781.25 / 1781.25 Output Total 325 / 525 200 / 200 Balance 2707.50 / 2507.50 3260.00 / 3260.00 1781.25 / 1781.25 Lab / Micro Data Result Diagrams: 08/07/22 22:24 08/08/22 11:07 Labs: Laboratory Results - last 24 hr 08/05/22 20:38: Crossmatch See Detail 08/07/22 20:51: POC Glucose 180 H 08/07/22 22:24: Hgb 9.7 L, Hct 28.9 L 08/08/22 05:07: Triglycerides 151, Cholesterol 122, LDL Cholesterol 57, VLDL Cho lesterol 30, HDL Cholesterol 35 L 08/08/22 06:24: POC Glucose 249 H 08/08/22 11:07: Sodium 140, Potassium 3.5, Chloride 111 H, Carbon Dioxide 21.0, Anion Gap 8, BUN 29 H, Creatinine 1.08 H, Estim Creat Clear Calc 43.05, Est GFR (MDRD) Af Amer 65, Est GFR (MDRD) Non-Af 54 L, BUN/Creatinine Ratio 26.9 H, Glucose 263 H, Calcium 8.3 L 08/08/22 11:49: POC Glucose 260 H 08/08/22 16:40: POC Glucose 236 H Micro: Microbiology 08/07/22 08:45 Urine, Random Urine Culture - Preliminary Culture exhibits no growth. Rhythm Strip Rhythm Strip: Sinus Rhythm Rate: 90 Ectopy: None Physical Exam Const alert Constitutional Narrative: Patient is alert but confused, she is not able to carry on conversation with this examiner, she does speak a few words to the examiner but does not answer most questions directly. Orientation / Consciousness: awake HEENT normocephalic, head/scalp atraumatic and moist oral mucous membranes Eyes PERRL, EOMs intact bilaterally and conjunctivae normal Neck supple, no JVD, thyroid normal and no carotid bruits General: trachea midline Resp normal respiratory effort, no retractions, no use of accessory muscles and clear to auscultation bilaterally Auscultation: Negative for rales, rhonchi or wheezes Cardio regular rate, regular rhythm, S1 normal heart sound, S2 normal heart sound, no murmurs, no rub and no gallops GI normal to inspection, nondistended, normoactive bowel sounds, soft to palpation, non-tender and non-distended Extremity no clubbing, cyanosis or edema Skin no rashes or lesions noted General Skin Exam: no breakdown Neuro CN's II-XII intact bilaterally, moves all extremities, no focal motor deficits and no sensory deficits noted Neuro Narrative: Patient is alert but confused, she is able to speak a few words but does not carry on conversation. Sensorium / Orientation: awake Psych Psych Narrative: Patient is alert but confused Assessment & Plan Assessment/Plan (1) Acute delirium: (2) Closed intertrochanteric fracture of left hip: PLAN: Plan 1. Left intertrochanteric fracture secondary to osteoporosis-status postop day 2 insertion of intramedullary jules left femur-when patient is more alert and able to participate, PT and OT will see patient, she will most likely need placement in a care home facility versus rehab facility. #2 type 2 diabetes-patient's blood sugars will be monitored, sliding scale insulin will be administered as needed #3 essential hypertension-patient will remain on her home medication #4 hyperlipidemia-patient is on a statin #5 bipolar disorder-patient does not currently appear to be on any bipolar med ication, she is on antidepressants and anxiety medication. #6 chronic pain syndrome-according to the daughter, patient is on medical marijuana at home for pain #7 osteoporosis-patient is on Fosamax #8 encephalopathy-possibly secondary to medication reaction-probable narcotic reaction-patient's IV narcotics were stopped, she was placed on IV Toradol, she will be observed for improvement #9 acute blood loss anemia-probably secondary to blood loss from surgery- patient's hemoglobin is stable at this time, CBC will be rechecked tomorrow #10 stage IIIb chronic kidney disease secondary to type 2 diabetes-patient's renal function will be monitored, she is now receiving Toradol and unfortunately I do not have any other pain medication I can give this patient due to her encephalopathy and possible reaction to narcotics at this time. I do not feel the patient has had an acute ischemic stroke. .Total clinical time spent by myself addressing the patient's medical issues, reviewing all of her data, and collaborating with patient's care team: 35 minutes Charges/Coding Visit Charges Inpatient E&M: 74858 Subs Hosp L2
[2022-08-08] MEDS: busPIRone 15 MG TABLET PO (21:08)
[2022-08-08] MEDS: Nystatin Powder 15gm Bottle 1 APPLIC TOPICAL (21:11)
[2022-08-08] MEDS: Pantoprazole Sodium 40 MG Tablet PO (21:11)
[2022-08-08] MEDS: Atorvastatin Calcium 20 MG Tablet PO (21:11)
[2022-08-08] MEDS: Senna/Docusate Sodium 1 Tablet 2 TABLET PO (21:12)
[2022-08-08] MEDS: Fluoxetine HCl 40 MG CAPSULE PO (21:12)
[2022-08-08] MEDS: QUEtiapine 25 MG Tablet PO (21:32)
[2022-08-08 23:01] LABS: Bedside Glucose 206 mg/dL (74-106)
[2022-08-09] VITALS (7 sets, daily range): BP systolic 158–191; BP diastolic 82–92; PULSE 108–116; RESP 14–18; TEMP 36.3–37.6; O2SAT 94–95; BMI 30.1
[2022-08-09] MEDS: Ketorolac 15 MG/ML Vial IV ×4 (01:56→21:58)
[2022-08-09] MEDS: 0.9% Normal Saline 1,000 ML 125 ML IV ×3 (02:16→20:45)
[2022-08-09] MEDS: Acetaminophen 325 MG Tablet 650 MG PO ×3 (04:40→21:07)
[2022-08-09] MEDS: Insulin Lispro 100 UNIT/ML INSULN.PEN SC ×4 (06:32→21:22)
[2022-08-09 06:52] LABS: Bedside Glucose 188 mg/dL (74-106)
[2022-08-09 07:17] LABS: Absolute Lymphocyte Count 1.34 X10^3/uL (0.83-4.51); Basophil# 0.01 X10^3/uL; Basophil% 0.1 % (0-1); Eosinophil# 0.08 X10^3/uL; Eosinophils% 0.6 % (0-5); Hematocrit 23.1 % (37-47); Hemoglobin 7.6 g/dL (12.0-15.0); Lymphocyte # 1.34 X10^3/ul (0.83-4.51); Lymphocyte % 9.9 % (19-41); Mean Corp Hgb Conc 32.9 g/dL (32-36); Mean Corpuscular Hgb 29.8 pg (27.0-32.0); Mean Corpuscular Volume 90.6 fL (81-99); Mean Platelet Vol. 10.9 fl (6.2-12.0); Monocyte# 0.96 X10^3/uL; Monocyte% 7.1 % (0-10); NRBC Flagged by Analyzer 0 % (0-5); Neutrophil % 81.2 % (47-70); Platelet Count 133 K/mm3 (150-450); RBC Distribution Width CV 13.7 % (11.6-14.6); RBC Distribution Width SD 45.1 fl (35.1-43.9); Red Blood Count 2.55 M/mm3 (4.2-5.4); White Blood Count 13.5 K/mm3 (4.4-11.0)
[2022-08-09 07:41] LABS: Anion Gap 7 (5-15); BUN 26 mg/dL (7-18); BUN/Creat Ratio 27.2 RATIO (10-20); Chloride 113 mmol/L (98-107); Creatinine, Serum 0.96 mg/dL (0.55-1.02); EST Glomerular Filtration Rate 62 mL/min (>60); Est Glom Filt Rate - Afr Amer 75 mL/min (>60); Estimated Creatinine Clearance 48.43 ml/min; Glucose 187 mg/dL (74-106); Potassium 3.1 mmol/L (3.5-5.1); Sodium Level 144 mmol/L (136-145)
[2022-08-09] MEDS: 0.9% Saline Lock 10 ML Syringe IV ×2 (09:49→15:47)
--- NOTE | 2022-08-09 09:56 | CASEMGMT ---
DAVIS spoke with Radha Adams patient's [facility] Front Presser. DAVIS updated Radha on the tentative d/c plan. DAVIS told Radha CANNON will keep her updated. DAVIS also spoke with Kaya in Rehab/TCU. TCU may take patient's insurance. Kaya will look as soon as she is able. Corinne Beltran COMMERCIAL INSTALLER YENNY
[2022-08-09] MEDS: Carvedilol 3.125 MG TABLET PO (09:58)
[2022-08-09] MEDS: Loratadine 10 MG Tablet PO (09:58)
[2022-08-09] MEDS: busPIRone 15 MG TABLET PO ×2 (09:58→20:59)
[2022-08-09] MEDS: Senna/Docusate Sodium 1 Tablet 2 TABLET PO ×2 (09:59→20:59)
[2022-08-09] MEDS: Nystatin Powder 15gm Bottle 1 APPLIC TOPICAL ×2 (09:59→21:00)
[2022-08-09] MEDS: Fluoxetine HCl 40 MG CAPSULE PO ×2 (09:59→20:58)
[2022-08-09] MEDS: Pantoprazole Sodium 40 MG Tablet PO ×2 (09:59→20:58)
[2022-08-09] MEDS: Tolterodine Tartrate 2 MG CAP.SA PO (09:59)
[2022-08-09] MEDS: Lisinopril 20 MG Tablet PO (10:00)
[2022-08-09 13:20] LABS: Bedside Glucose 174 mg/dL (74-106)
--- NOTE | 2022-08-09 15:06 | PCM.PN.HOSP ---
Reason for Visit Reason for Visit: Diagnoses Disorientation, unspecified (08/05/22) Displaced intertrochanteric fracture of left femur, initial encounter for closed fracture (08/05/22) Fall on same level from slipping, tripping and stumbling without subsequent striking against object, initial encounter (08/05/22) Subjective Subjective Patient was seen and examined today, she still remains confused but does not appear as restless as yesterday. Objective Data Objective Data Vital Signs: Vital Signs Temp Pulse Resp BP Pulse Ox O2 Del Method O2 Flow Rate 97.6 F L 110 H 14 160/82 H 95 Room Air 2 08/09/22 13:59 08/09/22 13:59 08/09/22 13:59 08/09/22 13:59 08/09/22 13:59 08/09/22 13:59 08/08/22 07:30 Oxygen Flow Rate (L/min) 2 Oxygen Delivery Method Room Air Weight: 79.6 kg Body Mass Index (BMI) 30.1 Intake & Output: Intake and Output for Last 24 Hours 08/07/22 08/08/22 08/09/22 23:59 23:59 23:59 Intake Total 3460.00 / 3460.00 2739.58 / 2739.58 1891.25 / 1891.25 Output Total 200 / 200 900 / 900 Balance 3260.00 / 3260.00 2739.58 / 2739.58 991.25 / 991.25 Lab / Micro Data 08/09/22 04:59 08/09/22 04:59 Labs: Laboratory Results - last 24 hr 08/08/22 16:40: POC Glucose 236 H 08/08/22 21:03: POC Glucose 206 H 08/09/22 04:59: WBC 13.5 H, RBC 2.55 L, Hgb 7.6 L, Hct 23.1 L, MCV 90.6, MCH 29.8, MCHC 32.9 D, RDW Std Deviation 45.1 H, RDW Coeff of Gerhard 13.7, Plt Count 133 L, MPV 10.9, Immature Gran % (Auto) 1.100 H, Neut % (Auto) 81.2 H, Lymph % (Auto) 9.9 L, [place] % (Auto) 7.1, Eos % (Auto) 0.6, Baso % (Auto) 0.1, Absolute Neuts (auto) 11.0 H, Absolute Lymphs (auto) 1.34, Nucleated RBC % 0, Sodium 144, Potassium 3.1 L, Chloride 113 H, Carbon Dioxide 24.0, Anion Gap 7, BUN 26 H, Creatinine 0.96, Estim Creat Clear Calc 48.43, Est GFR (MDRD) Af Amer 75, Est GFR (MDRD) Non-Af 62, BUN/Creatinine Ratio 27.2 H, Glucose 187 H, Calcium 8.0 L 08/09/22 06:32: POC Glucose 188 H 08/09/22 11:48: POC Glucose 174 H Micro: Microbiology 08/07/22 06:20 Blood Culture (Wb) - Anticubital Right Blood Culture - Preliminary No growth in 48 hours. 08/07/22 06:25 Blood Culture (Wb) - Right Wrist Blood Culture - Preliminary No growth in 48 hours. 08/07/22 08:45 Urine, Random Urine Culture - Final Culture exhibits no growth. Rhythm Strip Rhythm Strip: Sinus Rhythm Rate: 90 Ectopy: None Physical Exam Narrative alert Constitutional Narrative: Patient is alert but confused, she is not able to carry on conversation with this examiner, she does speak a few words to the examiner but does not answer most questions directly. Orientation / Consciousness: awake HEENT normocephalic, head/scalp atraumatic and moist oral mucous membranes Eyes PERRL, EOMs intact bilaterally and conjunctivae normal Neck supple, no JVD, thyroid normal and no carotid bruits General: trachea midline Resp normal respiratory effort, no retractions, no use of accessory muscles and clear to auscultation bilaterally Auscultation: Negative for rales, rhonchi or wheezes Cardio regular rate, regular rhythm, S1 normal heart sound, S2 normal heart sound, no murmurs, no rub and no gallops GI normal to inspection, nondistended, normoactive bowel sounds, soft to palpation, non-tender and non-distended Extremity no clubbing, cyanosis or edema Skin no rashes or lesions noted General Skin Exam: no breakdown Neuro CN's II-XII intact bilaterally, moves all extremities, no focal motor deficits and no sensory deficits noted Neuro Narrative: Patient is alert but confused, she is able to speak a few words but does not carry on conversation. Sensorium / Orientation: awake Psych Psych Narrative: Patient is alert but confused Assessment & Plan Assessment/Plan (1) Closed intertrochanteric fracture of left hip: (2) Acute delirium: PLAN: Plan 1. Left intertrochanteric fracture secondary to osteoporosis-status postop day 3 insertion of intramedullary jules left femur-when patient is more alert and able to participate, PT and OT will see patient, she will most likely need placement in a senior living facility versus rehab facility. #2 type 2 diabetes-patient's blood sugars will be monitored, sliding scale insulin will be administered as needed #3 essential hypertension-patient will remain on her home medication #4 hyperlipidemia-patient is on a statin #5 bipolar disorder-patient does not currently appear to be on any bipolar medication, she is on antidepressants and anxiety medication. #6 chronic pain syndrome-according to the daughter, patient is on medical marijuana at home for pain #7 osteoporosis-patient is on Fosamax #8 encephalopathy-possibly secondary to medication reaction-probable narcotic reaction-patient's IV narcotics were stopped, she remains on Toradol for pain #9 acute blood loss anemia-probably secondary to blood loss from surgery-patient's hemoglobin is stable at this time, CBC will be rechecked tomorrow #10 stage IIIb chronic kidney disease secondary to type 2 diabetes-patient's renal function will be monitored, she is now receiving Toradol and unfortunately I do not have any other pain medication I can give this patient due to her encephalopathy and possible reaction to narcotics at this time. I do not feel the patient has had an acute ischemic stroke. .Total clinical time spent by myself addressing the patient's medical issues, reviewing all of her data, and collaborating with patient's care team: 35 minutes Charges/Coding Visit Charges Inpatient E&M: 71463 Subs Hosp L2
[2022-08-09 16:13] LABS: Bedside Glucose 199 mg/dL (74-106)
--- NOTE | 2022-08-09 18:51 | PCM.PN.ORT ---
Subjective Subjective Patient seen and examined. Family at bedside. They report decreased agitation today. They feel she is doing much better and she was able to recognize family members today. Patient responds to questions by nodding or shaking her head but is not verbally responsive. She acknowledges she is in significant pain. She does not localize her pain. Objective Data Objective Data Vital Signs: Vital Signs Temp Pulse Resp BP Pulse Ox O2 Del Method O2 Flow Rate 97.6 F L 110 H 16 160/82 H 95 Room Air 2 08/09/22 14:10 08/09/22 14:10 08/09/22 14:10 08/09/22 14:10 08/09/22 14:10 08/09/22 14:10 08/08/22 07:30 Oxygen Flow Rate (L/min) 2 Oxygen Delivery Method Room Air Weight: 175 lb 7.807 oz Body Mass Index (BMI) 30.1 Intake & Output: Intake and Output for Last 24 Hours 08/07/22 08/08/22 08/09/22 23:59 23:59 23:59 Intake Total 3460.00 / 3460.00 2739.58 / 2739.58 3011.25 / 3011.25 Output Total 200 / 200 1200 / 1200 Balance 3260.00 / 3260.00 2739.58 / 2739.58 1811.25 / 1811.25 Lab / Micro Data Attestation: I reviewed the patient's lab results. 08/09/22 04:59 08/09/22 04:59 Labs: Laboratory Results - last 24 hr 08/08/22 21:03: POC Glucose 206 H 08/09/22 04:59: WBC 13.5 H, RBC 2.55 L, Hgb 7.6 L, Hct 23.1 L, MCV 90.6, MCH 29.8, MCHC 32.9 D, RDW Std Deviation 45.1 H, RDW Coeff of Gerhard 13.7, Plt Count 133 L, MPV 10.9, Immature Gran % (Auto) 1.100 H, Neut % (Auto) 81.2 H, Lymph % (Auto) 9.9 L, [place] % (Auto) 7.1, Eos % (Auto) 0.6, Baso % (Auto) 0.1, Absolute Neuts (auto) 11.0 H, Absolute Lymphs (auto) 1.34, Nucleated RBC % 0, Sodium 144, Potassium 3.1 L, Chloride 113 H, Carbon Dioxide 24.0, Anion Gap 7, BUN 26 H, Creatinine 0.96, Estim Creat Clear Calc 48.43, Est GFR (MDRD) Af Amer 75, Est GFR (MDRD) Non-Af 62, BUN/Creatinine Ratio 27.2 H, Glucose 187 H, Calcium 8.0 L 08/09/22 06:32: POC Glucose 188 H 08/09/22 11:48: POC Glucose 174 H 08/09/22 15:50: POC Glucose 199 H Micro: Microbiology 08/07/22 06:20 Blood Culture (Wb) - Anticubital Right Blood Culture - Preliminary No growth in 48 hours. 08/07/22 06:25 Blood Culture (Wb) - Right Wrist Blood Culture - Preliminary No growth in 48 hours. 08/07/22 08:45 Urine, Random Urine Culture - Final Culture exhibits no growth. Rhythm Strip Rhythm Strip: Sinus Rhythm Rate: 90 Ectopy: None Physical Exam Narrative General -alert, NAD Left lower extremity -wiggles toes on command. DP pulse 2+. Sanguinous drainage noted on dressings, with diffuse subcutaneous ecchymosis noted along the lateral hip. Compartments are soft and compressible. No impending skin necrosis noted. No palpable fluctuance. Assessment & Plan Assessment/Plan (1) Closed intertrochanteric fracture of left hip: PLAN: POD#3 s/p left femur CMN -Delirium appears significantly improved today. Agree with judicious use of narcotic pain medicine. Defer to primary regarding further management of acute delirium -Acute blood loss anemia in the setting of subcutaneous and likely intramuscular hematoma. Hemoglobin is again decreased with significant sanguinous drainage on the dressings. Recheck H&H in the morning. Continue to hold Lovenox. I would not recommend a return to the OR due to risk of worsening delirium unless absolutely necessary. Patient may require additional packed red blood cell transfusion. -Will follow
[2022-08-09] MEDS: Atorvastatin Calcium 20 MG Tablet PO (20:58)
[2022-08-09] MEDS: QUEtiapine 25 MG Tablet PO (20:59)
[2022-08-09] MEDS: hydrALAZINE 20 MG/ML Vial 5 MG IV (21:09)
[2022-08-09 22:20] LABS: Bedside Glucose 188 mg/dL (74-106)
[2022-08-10] VITALS (20 sets, daily range): BP systolic 158–202; BP diastolic 74–101; PULSE 91–119; RESP 16–22; TEMP 36.6–36.9; O2SAT 93–98
[2022-08-10] MEDS: Acetaminophen 325 MG Tablet 650 MG PO ×4 (01:29→19:42)
[2022-08-10] MEDS: 0.9% Normal Saline 1,000 ML 125 ML IV ×3 (01:30→18:05)
[2022-08-10] MEDS: Gabapentin 100 MG Capsule PO (01:30)
[2022-08-10 06:01] LABS: Absolute Lymphocyte Count 2.16 X10^3/uL (0.83-4.51); Absolute Neutrophil Count 10.4 X10^3/uL (2.0-7.7); Basophil# 0.01 X10^3/uL; Basophil% 0.1 % (0-1); Eosinophils% 1.4 % (0-5); Hematocrit 19.1 % (37-47); Hemoglobin 6.2 g/dL (12.0-15.0); Lymphocyte # 2.16 X10^3/ul (0.83-4.51); Lymphocyte % 15.5 % (19-41); Mean Corp Hgb Conc 32.5 g/dL (32-36); Mean Corpuscular Hgb 30.4 pg (27.0-32.0); Mean Corpuscular Volume 93.6 fL (81-99); Mean Platelet Vol. 9.6 fl (6.2-12.0); Monocyte# 1.07 X10^3/uL; Monocyte% 7.7 % (0-10); NRBC Flagged by Analyzer 0 % (0-5); Neutrophil % 74.7 % (47-70); Platelet Count 143 K/mm3 (150-450); RBC Distribution Width CV 13.8 % (11.6-14.6); Red Blood Count 2.04 M/mm3 (4.2-5.4); White Blood Count 13.9 K/mm3 (4.4-11.0)
[2022-08-10] MEDS: Ketorolac 15 MG/ML Vial IV ×3 (06:04→19:39)
[2022-08-10] MEDS: hydrALAZINE 20 MG/ML Vial 5 MG IV ×3 (06:05→19:40)
[2022-08-10 06:39] LABS: Anion Gap 4 (5-15); BUN 26 mg/dL (7-18); BUN/Creat Ratio 26.3 RATIO (10-20); Calcium,Total 7.5 mg/dL (8.5-10.1); Chloride 114 mmol/L (98-107); Creatinine, Serum 0.99 mg/dL (0.55-1.02); EST Glomerular Filtration Rate 59 mL/min (>60); Est Glom Filt Rate - Afr Amer 72 mL/min (>60); Estimated Creatinine Clearance 46.96 ml/min; Glucose 182 mg/dL (74-106); Sodium Level 143 mmol/L (136-145)
[2022-08-10] MEDS: Insulin Lispro 100 UNIT/ML INSULN.PEN SC ×4 (06:45→19:59)
--- NOTE | 2022-08-10 06:48 | PCM.HOSP.N ---
Hospitalist Note AM Hgb 6.2, steadily decreased s/p OR with suspected blood loss anemia, will order 2 u PRBC and repeat HH following completion.
[2022-08-10 07:06] LABS: Bedside Glucose 173 mg/dL (74-106)
[2022-08-10] MEDS: Pantoprazole Sodium 40 MG Tablet PO ×2 (09:19→19:53)
[2022-08-10] MEDS: Fluoxetine HCl 40 MG CAPSULE PO ×2 (09:19→19:52)
[2022-08-10] MEDS: Senna/Docusate Sodium 1 Tablet 2 TABLET PO ×2 (09:19→19:52)
[2022-08-10] MEDS: Carvedilol 3.125 MG TABLET PO ×2 (09:20→17:06)
[2022-08-10] MEDS: Loratadine 10 MG Tablet PO (09:20)
[2022-08-10] MEDS: busPIRone 15 MG TABLET PO ×2 (09:20→19:58)
[2022-08-10] MEDS: Tolterodine Tartrate 2 MG CAP.SA PO (09:20)
[2022-08-10] MEDS: Lisinopril 20 MG Tablet PO (09:21)
--- NOTE | 2022-08-10 11:22 | CASEMGMT ---
DAVIS called patient's daughter Joo. DAVIS explained [facility] acute rehab is not willing to take patient so she will need to review chcf options from the list DAVIS provided her. Joo said she will have her aunt who is currently with patient send her the list so she can look at it. DAVIS told Joo we will need at least 3 places she is okay with and SW will check on availability. DAVIS gave Joo DAVIS's direct phone number. Corinne RAMON
[2022-08-10] MEDS: 0.9% Saline Lock 10 ML Syringe IV ×3 (11:39→17:07)
[2022-08-10] MEDS: Nystatin Powder 15gm Bottle 1 APPLIC TOPICAL ×2 (11:42→19:58)
--- NOTE | 2022-08-10 12:10 | NURSING ---
blood sugar 186
[2022-08-10] MEDS: Potassium Chloride Oral Tablet 20 MEQ 40 MEQ PO (12:12)
[2022-08-10 12:25] LABS: Bedside Glucose 186 mg/dL (74-106)
--- NOTE | 2022-08-10 14:12 | CASEMGMT ---
Patient does not have a Healthcare Power of Pressurizer or a Healthcare Living will per nursing admission questions. Corinne Beltran HUMAN RESOURCE ADVISOR YENNY
--- NOTE | 2022-08-10 14:31 | PN.HOSP_ITS ---
Reason for Visit Reason for Visit: Diagnoses Disorientation, unspecified (08/05/22) Displaced intertrochanteric fracture of left femur, initial encounter for closed fracture (08/05/22) Fall on same level from slipping, tripping and stumbling without subsequent striking against object, initial encounter (08/05/22) Subjective Subjective Patient was seen and examined today, she appears more alert but is still lethargic. She has been refused approval at 2 different nursing homes, this is mainly due to her confusion. Objective Data Objective Data Vital Signs: Vital Signs Temp Pulse Resp BP Pulse Ox O2 Del Method O2 Flow Rate 98 F 98 16 182/101 H 94 Room Air 2 08/10/22 13:00 08/10/22 14:19 08/10/22 13:00 08/10/22 14:19 08/10/22 13:00 08/10/22 13:12 08/08/22 07:30 Oxygen Flow Rate (L/min) 2 Oxygen Delivery Method Room Air Weight: 79.6 kg Body Mass Index (BMI) 30.1 Intake & Output: Intake and Output for Last 24 Hours 08/08/22 08/09/22 08/10/22 23:59 23:59 23:59 Intake Total 2739.58 / 2739.58 3131.25 / 3131.25 1833.75 / 1833.75 Output Total 1450 / 1450 700 / 700 Balance 2739.58 / 2739.58 1681.25 / 1681.25 1133.75 / 1133.75 Lab / Micro Data 08/10/22 05:49 08/10/22 05:49 Labs: Laboratory Results - last 24 hr 08/09/22 15:50: POC Glucose 199 H 08/09/22 21:20: POC Glucose 188 H 08/10/22 05:49: WBC 13.9 H, RBC 2.04 L, Hgb 6.2 L, Hct 19.1 L, MCV 93.6, MCH 30.4, MCHC 32.5, RDW Std Deviation 46.0 H, RDW Coeff of Gerhard 13.8, Plt Count 143 L, MPV 9.6, Immature Gran % (Auto) 0.600, Neut % (Auto) 74.7 H, Lymph % (Auto) 15.5 L, [place] % (Auto) 7.7, Eos % (Auto) 1.4, Baso % (Auto) 0.1, Absolute Neuts (auto) 10.4 H, Absolute Lymphs (auto) 2.16, Nucleated RBC % 0, Sodium 143, Potassium 3.0 L, Chloride 114 H, Carbon Dioxide 25.0, Anion Gap 4 L, BUN 26 H, Creatinine 0.99, Estim Creat Clear Calc 46.96, Est GFR (MDRD) Af Amer 72, Est GFR (MDRD) Non-Af 59 L, BUN/Creatinine Ratio 26.3 H, Glucose 182 H, Calcium 7.5 L 08/10/22 06:40: POC Glucose 173 H 08/10/22 07:16: Blood Type O POSITIVE, Antibody Screen NEGATIVE, Crossmatch See Detail 08/10/22 12:08: POC Glucose 186 H Micro: Microbiology 08/07/22 06:20 Blood Culture (Wb) - Anticubital Right Blood Culture - Prel iminary No growth in 48 hours. 08/07/22 06:25 Blood Culture (Wb) - Right Wrist Blood Culture - Preliminary No growth in 48 hours. 08/07/22 08:45 Urine, Random Urine Culture - Final Culture exhibits no growth. Rhythm Strip Rhythm Strip: Sinus Rhythm Rate: 90 Ectopy: None Physical Exam Narrative Constitutional Narrative: Patient is alert but confused, she is not able to carry on conversation with this examiner, she does speak a few words to the examiner but does not answer most questions directly. Orientation / Consciousness: awake HEENT normocephalic, head/scalp atraumatic and moist oral mucous membranes Eyes PERRL, EOMs intact bilaterally and conjunctivae normal Neck supple, no JVD, thyroid normal and no carotid bruits General: trachea midline Resp normal respiratory effort, no retractions, no use of accessory muscles and clear to auscultation bilaterally Auscultation: Negative for rales, rhonchi or wheezes Cardio regular rate, regular rhythm, S1 normal heart sound, S2 normal heart sound, no m urmurs, no rub and no gallops GI normal to inspection, nondistended, normoactive bowel sounds, soft to palpation, non-tender and non-distended Extremity no clubbing, cyanosis or edema Skin no rashes or lesions noted General Skin Exam: no breakdown Neuro CN's II-XII intact bilaterally, moves all extremities, no focal motor deficits and no sensory deficits noted Neuro Narrative: Patient is alert but confused, she is able to speak a few words but does not carry on conversation. Sensorium / Orientation: awake Psych Psych Narrative: Patient is alert but confused Assessment & Plan Assessment/Plan (1) Acute encephalopathy: (2) Closed intertrochanteric fracture of left hip: (3) Acute delirium: PLAN: Plan 1. Left intertrochanteric fracture secondary to osteoporosis-status postop day 4 insertion of intramedullary jules left femur-when patient is more alert and able to participate, PT and OT will see patient, she will most likely need placement in a care home facility versus rehab facility. #2 type 2 diabetes-patient's blood sugars will be monitored, sliding scale insulin will be administered as needed #3 essential hypertension-patient will remain on her home medication #4 hyperlipidemia-patient is on a statin #5 bipolar disorder-patient does not currently appear to be on any bipolar medication, she is on antidepressants and anxiety medication. #6 chronic pain syndrome-according to the daughter, patient is on medical marijuana at home for pain #7 osteoporosis-patient is on Fosamax #8 encephalopathy-possibly secondary to medication reaction-probable narcotic reaction-patient's IV narcotics were stopped, she remains on Toradol for pain #9 acute blood loss anemia-probably secondary to blood loss from surgery- patient's hemoglobin is stable at this time, CBC will be rechecked tomorrow #10 stage IIIb chronic kidney disease secondary to type 2 diabetes-patient's renal function will be monitored, she is now receiving Toradol and unfortunately I do not have any other pain medication I can give this patient due to her encephalopathy and possible reaction to narcotics at this time. I do not feel the patient has had an acute ischemic stroke. .Total clinical time spent by myself addressing the patient's medical issues, reviewing all of her data, and collaborating with patient's care team: 25 minutes Charges/Coding Visit Charges Inpatient E&M: 94367 [facility] Hosp L1
--- NOTE | 2022-08-10 15:05 | CASEMGMT ---
DAVIS received a call from patient's daughter Joo. Joo asked if [facility] is an option since it is not on the list. DAVIS told Joo that we use the insurance website for reference. DAVIS told Joo we can call [facility] and ask. SW will let her know. DAVIS asked Anum d/c chief of planning to please check with [facility]. Corinne Beltran PORCELAIN SLUSHER YENNY
--- NOTE | 2022-08-10 16:58 | PCM.PN.ORT ---
Subjective Subjective This is a late entry note patient seen at 0910 this morning. Patient able to answer questions appropriately this morning with improved mental status. She reports pain in her left hip otherwise denies any complaints. Denies fevers, chills, nausea or vomiting, chest pain or shortness of breath. Objective Data Objective Data Vital Signs: Vital Signs Temp Pulse Resp BP Pulse Ox O2 Del Method O2 Flow Rate 97.9 F 99 18 174/88 H 94 Room Air 2 08/10/22 15:00 08/10/22 15:00 08/10/22 15:00 08/10/22 15:00 08/10/22 15:00 08/10/22 15:00 08/08/22 07:30 Oxygen Flow Rate (L/min) 2 Oxygen Delivery Method Room Air Weight: 175 lb 7.807 oz Body Mass Index (BMI) 30.1 Intake & Output: Intake and Output for Last 24 Hours 08/08/22 08/09/22 08/10/22 23:59 23:59 23:59 Intake Total 2739.58 / 2739.58 3131.25 / 3131.25 2233.75 / 2233.75 Output Total 1450 / 1450 700 / 700 Balance 2739.58 / 2739.58 1681.25 / 1681.25 1533.75 / 1533.75 Lab / Micro Data 08/10/22 05:49 08/10/22 05:49 Labs: Laboratory Results - last 24 hr 08/09/22 21:20: POC Glucose 188 H 08/10/22 05:49: WBC 13.9 H, RBC 2.04 L, Hgb 6.2 L, Hct 19.1 L, MCV 93.6, MCH 30.4, MCHC 32.5, RDW Std Deviation 46.0 H, RDW Coeff of Gerhard 13.8, Plt Count 143 L, MPV 9.6, Immature Gran % (Auto) 0.600, Neut % (Auto) 74.7 H, Lymph % (Auto) 15.5 L, Osborne % (Auto) 7.7, Eos % (Auto) 1.4, Baso % (Auto) 0.1, Absolute Neuts (auto) 10.4 H, Absolute Lymphs (auto) 2.16, Nucleated RBC % 0, Sodium 143, Potassium 3.0 L, Chloride 114 H, Carbon Dioxide 25.0, Anion Gap 4 L, BUN 26 H, Creatinine 0.99, Estim Creat Clear Calc 46.96, Est GFR (MDRD) Af Amer 72, Est GFR (MDRD) Non-Af 59 L, BUN/Creatinine Ratio 26.3 H, Glucose 182 H, Calcium 7.5 L 08/10/22 06:40: POC Glucose 173 H 08/10/22 07:16: Blood Type O POSITIVE, Antibody Screen NEGATIVE, Crossmatch See Detail 08/10/22 12:08: POC Glucose 186 H Micro: Microbiology 08/07/22 06:20 Blood Culture (Wb) - Anticubital Right Blood Culture - Preliminary No growth in 48 hours. 08/07/22 06:25 Blood Culture (Wb) - Right Wrist Blood Culture - Preliminary No growth in 48 hours. 08/07/22 08:45 Urine, Random Urine Culture - Final Culture exhibits no growth. Rhythm Strip Rhythm Strip: Sinus Rhythm Rate: 90 Ectopy: None Physical Exam Narrative General -alert and oriented to person and place, NAD Left lower extremity -sensation intact throughout. Compartments are soft and compressible. Subcutaneous ecchymosis is again noted appears stable. Proximal incisional dressing demonstrates serosanguineous drainage. Ankle dorsiflexion, plantarflexion, EHL 5/5. DP pulse 2+ brisk cap refill in the toes. Assessment & Plan Assessment/Plan (1) Intertrochanteric fracture of left femur: (2) Closed intertrochanteric fracture of left hip: PLAN: POD#4 s/p left femur CMN -Mental status much improved today with patient answering questions appropriately. -Continued drop in hemoglobin noted this morning. 2 units packed red blood cells ordered by primary. Agree with transfusion. Recheck H&H following transfusion and in the morning. I recommend continued hold of Lovenox. SCDs and KENISHA hose for DVT prophylaxis. -Mobilize with therapy when able. Weightbearing as tolerated left lower extremity. -Will follow
--- NOTE | 2022-08-10 16:59 | NURSING ---
blood glucose 166
[2022-08-10] MEDS: Nalbuphine 10 MG/ML Ampul IV (17:07)
[2022-08-10 17:16] LABS: Bedside Glucose 166 mg/dL (74-106)
--- NOTE | 2022-08-10 19:04 | NURSING ---
Multiple attempts made this shift to reposition and move patient to sitting position. Pt refusing to reposition to sitting or semi fowlers from supine due to pain.
--- NOTE | 2022-08-10 19:26 | NURSING ---
Ice packs applied to left hip and refreshed frequently throughout day. Pt states that ice packs help slightly with pain.
[2022-08-10] MEDS: Atorvastatin Calcium 20 MG Tablet PO (19:52)
[2022-08-10] MEDS: hydrALAZINE 20 MG/ML Vial 10 MG IV (21:05)
[2022-08-10] MEDS: cycloBENZAPRine HCl 5 MG TABLET PO (21:08)
[2022-08-10 22:41] LABS: Hematocrit 28.6 % (37-47); Hemoglobin 9.3 g/dL (12.0-15.0)
--- NOTE | 2022-08-10 22:54 | PCM.HOSP.N ---
Hospitalist Note Patient with ongoing persistent pain. No improvement with low dose gabapentin trial from discussion with staff. Notes spasms, trial flexeril with mild improvement from 11/21 to 09/21. Will trial norco x 1 per patient/family agreement with close monitoring of her mental status given prior reported confusion/sedation.
[2022-08-10] MEDS: HYDROcodone Bitartrate/Apap 5/325 Tablet PO (23:11)
[2022-08-11] VITALS (20 sets, daily range): BP systolic 156–201; BP diastolic 74–93; PULSE 78–998; RESP 16–22; TEMP 36.4–36.7; O2SAT 92–100
[2022-08-11] MEDS: Metoprolol Tartrate 5 MG/5 ML Vial IV ×2 (00:42→06:05)
[2022-08-11] MEDS: Nalbuphine 10 MG/ML Ampul IV ×3 (01:08→17:21)
[2022-08-11] MEDS: hydrALAZINE 20 MG/ML Vial 10 MG IV ×3 (01:09→21:44)
[2022-08-11] MEDS: 0.9% Saline Lock 10 ML Syringe IV ×6 (01:12→21:48)
[2022-08-11] MEDS: 0.9% Normal Saline 1,000 ML 125 ML IV ×3 (01:12→21:31)
[2022-08-11 01:24] LABS: Bedside Glucose 185 mg/dL (74-106)
[2022-08-11] MEDS: Ketorolac 15 MG/ML Vial IV ×3 (01:58→18:27)
[2022-08-11] MEDS: HYDROcodone Bitartrate/Apap 5/325 Tablet PO ×3 (02:54→22:37)
[2022-08-11] MEDS: Gabapentin 100 MG Capsule 200 MG PO (02:54)
[2022-08-11] MEDS: Acetaminophen 325 MG Tablet 650 MG PO ×2 (06:06→11:01)
[2022-08-11 06:41] LABS: Absolute Lymphocyte Count 2.31 X10^3/uL (0.83-4.51); Absolute Neutrophil Count 12.8 X10^3/uL (2.0-7.7); Basophil# 0.03 X10^3/uL; Basophil% 0.2 % (0-1); Eosinophil# 0.39 X10^3/uL; Eosinophils% 2.3 % (0-5); Hematocrit 29.2 % (37-47); Hemoglobin 9.4 g/dL (12.0-15.0); Lymphocyte # 2.31 X10^3/ul (0.83-4.51); Lymphocyte % 13.8 % (19-41); Mean Corp Hgb Conc 32.2 g/dL (32-36); Mean Corpuscular Hgb 29.3 pg (27.0-32.0); Monocyte# 0.95 X10^3/uL; Monocyte% 5.7 % (0-10); NRBC Flagged by Analyzer 0.1 % (0-5); Neutrophil # 12.81 X10^3/uL (2.7-7.7); Neutrophil % 76.2 % (47-70); Platelet Count 179 K/mm3 (150-450); RBC Distribution Width CV 14.6 % (11.6-14.6); RBC Distribution Width SD 45.4 fl (35.1-43.9); Red Blood Count 3.21 M/mm3 (4.2-5.4); White Blood Count 16.8 K/mm3 (4.4-11.0)
[2022-08-11 07:17] LABS: AST(SGOT) 18 U/L (15-37); Alanine Aminotransfer ALT/SGPT 13 U/L (13-56); Albumin, Serum 2.5 g/dL (3.2-5.0); Alkaline Phosphatase 53 U/L (45-117); Anion Gap 7 (5-15); BUN 23 mg/dL (7-18); BUN/Creat Ratio 29.6 RATIO (10-20); Calcium,Total 7.4 mg/dL (8.5-10.1); Chloride 113 mmol/L (98-107); Creatinine, Serum 0.78 mg/dL (0.55-1.02); EST Glomerular Filtration Rate 78 mL/min (>60); Est Glom Filt Rate - Afr Amer 95 mL/min (>60); Globulin 2.5 g/dL (2.2-4.2); Glucose 138 mg/dL (74-106); Potassium 3.3 mmol/L (3.5-5.1); Sodium Level 143 mmol/L (136-145)
--- NOTE | 2022-08-11 07:57 | PCM.PN.ORT ---
Subjective Subjective Patient seen and examined. Alert and oriented this morning. She had issues with controlling her pain overnight with pain in her left hip and low back. She denies any fevers, chills, nausea vomiting, chest pain or shortness of breath. Objective Data Objective Data Vital Signs: Vital Signs Temp Pulse Resp BP Pulse Ox O2 Del Method O2 Flow Rate 98 F 998 H 18 171/80 H 100 Nasal Cannula 2 08/11/22 05:26 08/11/22 06:07 08/11/22 05:26 08/11/22 06:07 08/11/22 05:39 08/11/22 05:39 08/11/22 05:39 Oxygen Flow Rate (L/min) 2 Oxygen Delivery Method Nasal Cannula Weight: 175 lb 7.807 oz Body Mass Index (BMI) 30.1 Intake & Output: Intake and Output for Last 24 Hours 08/09/22 08/10/22 08/11/22 23:59 23:59 23:59 Intake Total 3131.25 / 3131.25 3756.67 / 3756.67 581.25 / 581.25 Output Total 1450 / 1450 950 / 1350 400 / 400 Balance 1681.25 / 1681.25 2806.67 / 2406.67 181.25 / 181.25 Lab / Micro Data 08/11/22 05:23 08/11/22 05:23 Labs: Laboratory Results - last 24 hr 08/10/22 07:16: Blood Type O POSITIVE, Antibody Screen NEGATIVE, Crossmatch See Detail 08/10/22 12:08: POC Glucose 186 H 08/10/22 16:56: POC Glucose 166 H 08/10/22 19:56: POC Glucose 185 H 08/10/22 22:22: Hgb 9.3 L, Hct 28.6 L 08/11/22 05:23: WBC 16.8 H, RBC 3.21 L, Hgb 9.4 L, Hct 29.2 L, MCV 91.0, MCH 29.3, MCHC 32.2, RDW Std Deviation 45.4 H, RDW Coeff of Gerhard 14.6, Plt Count 179, MPV 10.0, Immature Gran % (Auto) 1.800 H, Neut % (Auto) 76.2 H, Lymph % (Auto) 13.8 L, [place] % (Auto) 5.7, Eos % (Auto) 2.3, Baso % (Auto) 0.2, Absolute Neuts (auto) 12.8 H, Absolute Lymphs (auto) 2.31, Nucleated RBC % 0.1, Sodium 143, Potassium 3.3 L, Chloride 113 H, Carbon Dioxide 23.0, Anion Gap 7, BUN 23 H, Creatinine 0.78, Estim Creat Clear Calc 46.50, Est GFR (MDRD) Af Amer 95, Est GFR (MDRD) Non-Af 78, BUN/Creatinine Ratio 29.6 H, Glucose 138 H, Calcium 7.4 L, Total Bilirubin 1.30 H, AST 18, ALT 13, Alkaline Phosphatase 53, Total Protein 5.0 L, Albumin 2.5 L, Globulin 2.5, Albumin/Globulin Ratio 1.0 Micro: Microbiology 08/07/22 06:20 Blood Culture (Wb) - Anticubital Right Blood Culture - Preliminary No growth in 48 hours. 08/07/22 06:25 Blood Culture (Wb) - Right Wrist Blood Culture - Preliminary No growth in 48 hours. 08/07/22 08:45 Urine, Random Urine Culture - Final Culture exhibits no growth. Rhythm Strip Rhythm Strip: Sinus Rhythm Rate: 90 Ectopy: None Physical Exam Narrative General -alert and oriented to person and place, NAD Left lower extremity -sensation intact throughout. Compartments are soft and compressible. Subcutaneous ecchymosis is again noted appears stable. Proximal incisional dressing demonstrates serosanguineous drainage. Ankle dorsiflexion, plantarflexion, EHL 5/5. DP pulse 2+ brisk cap refill in the toes. Lumbar spine examined. Paraspinal tenderness is noted on the left side. No midline lumbar tenderness, no step-offs or deformities. Assessment & Plan Assessment/Plan (1) Closed intertrochanteric fracture of left hip: PLAN: POD#5 s/p left femur CMN -Mental status continues to improve. -Hemoglobin rechecked last evening and again this morning and is stable. She is status post 2 unit packed red blood cell transfusion yesterday. If hemoglobin stable tomorrow, consider restarting anticoagulant as patient will be at high risk for VTE given immobilization and recent surgery. -Continue judicious use of narcotic pain medication in the setting of improving delirium. -Mobilize with therapy when able. Weightbearing as tolerated left lower extremity. -Will follow
[2022-08-11 08:25] LABS: Bedside Glucose 146 mg/dL (74-106)
--- NOTE | 2022-08-11 09:28 | CASEMGMT ---
Discharge Planning Call placed to [facility], they have no bed availability at this time. Call placed to daughter, Pam, with this update. Pam feels that her mother should remain in hospital until her confusion clears up then referral be sent again to TCU. Information passed along to SW. Anum Soler, Discharge Planning Asst.
[2022-08-11] MEDS: busPIRone 15 MG TABLET PO ×2 (09:32→21:35)
[2022-08-11] MEDS: Fluoxetine HCl 40 MG CAPSULE PO ×2 (09:33→21:35)
[2022-08-11] MEDS: Pantoprazole Sodium 40 MG Tablet PO ×2 (09:33→21:34)
[2022-08-11] MEDS: Carvedilol 3.125 MG TABLET PO ×2 (09:33→17:20)
[2022-08-11] MEDS: Tolterodine Tartrate 2 MG CAP.SA PO (09:33)
[2022-08-11] MEDS: Loratadine 10 MG Tablet PO (09:34)
[2022-08-11] MEDS: Lisinopril 20 MG Tablet PO ×2 (09:34→18:18)
[2022-08-11] MEDS: Senna/Docusate Sodium 1 Tablet 2 TABLET PO ×2 (09:34→21:36)
--- NOTE | 2022-08-11 10:06 | CASEMGMT ---
Social Work SW re-referred pt to TCU/rehab as pt is alert and oriented now as per RN. As per admissions, they cannot take pt due to combativeness, and that it is anticipated pt will need longer than 20 days for rehab, and pt would only be able to stay in TCU 20 days, as TCU does not take the Medicaid portion of pt's insurance that starts on day 21. Pt is not participating in therapy at this point to the level that would be needed for rehab. SW called daughter, explained the above, asked for additional choices. She is going to come visit pt today and will let SW know, is thinking about [facility]. She did want [facility] but aware they have no beds. Daughter states is going through chemo and wasn't feeling well yesterday, will be in later. SW offered support. SW asked daughter to ask for SW when she gets in, and let SW know where he would like referral sent. SW will continue to follow. HOANG Sorensen
[2022-08-11] MEDS: Nystatin Powder 15gm Bottle 1 APPLIC TOPICAL ×2 (11:00→21:49)
--- NOTE | 2022-08-11 11:10 | NURSING ---
Educated pt on importance of ambulating and getting up to chair post op (risk for blood clots, pneumonia, stiffness in hip, ect). Encouraged pt to sit in chair for lunch then go back to bed. Meal ordered and asked dietary to bring as soon as possible. Pt provided PRN pain medication. Repositioned in chair by elevating legs, propping arms on pillows. Pt stated that she was more comfortable. Pt and sister verbalized understanding of education. Sister very encouraging to pt.
[2022-08-11] MEDS: Insulin Lispro 100 UNIT/ML INSULN.PEN SC ×2 (11:14→17:21)
[2022-08-11 11:28] LABS: Bedside Glucose 232 mg/dL (74-106)
--- NOTE | 2022-08-11 13:33 | CASEMGMT ---
Social Work SW spoke w/pt's daughter, son, sister, grandchildren in the room in regard to SNF choices. SW had a lengthy discussion w/family about choices. They are still undecided as to where to send a referral. They are calling [facility], and they are to let SW know where they would like a referral sent. They asked if [facility] has a private room, SW called, they do. SW let family know. SW explained that we would like to get the referral going today so we can start the precert as soon as possible. Family states understanding. Daughter is to let SW know where they would like the referral sent. HOANG Sorensen
--- NOTE | 2022-08-11 15:28 | CASEMGMT ---
Social Work SW spoke w/family again, they would like referrals sent to [facility], [facility], and then [facility]. They are aware [facility] is likely full. SW explained we can send referrals and see who can take pt, though at this point we will not get precert so pt will be here through the weekend. Family states understanding, daughter states they were told by the doctor the pt wouldn't be ready until next week. SW explained that pt is medically doing better now, but now needing precert will keep pt here through the weekend. Family states understanding. Son states if [facility] cannot take pt and she goes to [facility] and they don't like it, they would have pt transferred to [facility]. SW reiterated to family that the facility needs to accept the pt first, it's not guaranteed. They state understanding. Anum d/liliana train planner, making referrals to pt's choices. HOANG Sorensen
--- NOTE | 2022-08-11 16:07 | PCM.PN.HOSP ---
Reason for Visit Reason for Visit: Diagnoses Encephalopathy, unspecified (08/05/22) Disorientation, unspecified (08/05/22) Displaced intertrochanteric fracture of left femur, initial encounter for closed fracture (08/05/22) Fall on same level from slipping, tripping and stumbling without subsequent striking against object, initial encounter (08/05/22) Subjective Subjective Patient was seen and examined today, she is alert and responds appropriately to simple questions. Physical therapy worked with the patient today, social welfare research worker talk with the patient's daughter about senior care placement, the rehab unit has denied patient at this time. Objective Data Objective Data Vital Signs: Vital Signs Temp Pulse Resp BP Pulse Ox O2 Del Method O2 Flow Rate 98.1 F 90 16 172/91 H 97 Room Air 93 08/11/22 14:00 08/11/22 14:00 08/11/22 14:00 08/11/22 14:00 08/11/22 14:00 08/11/22 14:45 08/11/22 09:18 Oxygen Flow Rate (L/min) 93 Oxygen Delivery Method Room Air Weight: 79.6 kg Body Mass Index (BMI) 30.1 Intake & Output: Intake and Output for Last 24 Hours 08/09/22 08/10/22 08/11/22 23:59 23:59 23:59 Intake Total 3131.25 / 3131.25 3756.67 / 3756.67 1821.25 / 1821.25 Output Total 1450 / 1450 950 / 1350 400 / 400 Balance 1681.25 / 1681.25 2806.67 / 2406.67 1421.25 / 1421.25 Lab / Micro Data 08/11/22 05:23 08/11/22 05:23 Labs: Laboratory Results - last 24 hr 08/10/22 07:16: Blood Type O POSITIVE, Antibody Screen NEGATIVE, Crossmatch See Detail 08/10/22 16:56: POC Glucose 166 H 08/10/22 19:56: POC Glucose 185 H 08/10/22 22:22: Hgb 9.3 L, Hct 28.6 L 08/11/22 05:23: WBC 16.8 H, RBC 3.21 L, Hgb 9.4 L, Hct 29.2 L, MCV 91.0, MCH 29.3, MCHC 32.2, RDW Std Deviation 45.4 H, RDW Coeff of Gerhard 14.6, Plt Count 179, MPV 10.0, Immature Gran % (Auto) 1.800 H, Neut % (Auto) 76.2 H, Lymph % (Auto) 13.8 L, Carlton % (Auto) 5.7, Eos % (Auto) 2.3, Baso % (Auto) 0.2, Absolute Neuts (auto) 12.8 H, Absolute Lymphs (auto) 2.31, Nucleated RBC % 0.1, Sodium 143, Potassium 3.3 L, Chloride 113 H, Carbon Dioxide 23.0, Anion Gap 7, BUN 23 H, Creatinine 0.78, Estim Creat Clear Calc 46.50, Est GFR (MDRD) Af Amer 95, Est GFR (MDRD) Non-Af 78, BUN/Creatinine Ratio 29.6 H, Glucose 138 H, Calcium 7.4 L, Total Bilirubin 1.30 H, AST 18, ALT 13, Alkaline Phosphatase 53, Total Protein 5.0 L, Albumin 2.5 L, Globulin 2.5, Albumin/Globulin Ratio 1.0 08/11/22 07:41: POC Glucose 146 H 08/11/22 11:10: POC Glucose 232 H Micro: Microbiology 08/07/22 06:20 Blood Culture (Wb) - Anticubital Right Blood Culture - Preliminary No growth in 48 hours. 08/07/22 06:25 Blood Culture (Wb) - Right Wrist Blood Culture - Preliminary No growth in 48 hours. 08/07/22 08:45 Urine, Random Urine Culture - Final Culture exhibits no growth. Rhythm Strip Rhythm Strip: Sinus Rhythm Rate: 90 Ectopy: None Physical Exam Const alert, no apparent distress and healthy appearing General Appearance: cooperative, well kempt and well developed Orientation / Consciousness: awake, oriented to person and oriented to place HEENT normocephalic, head/scalp atraumatic and moist oral mucous membranes Eyes PERRL, EOMs intact bilaterally and conjunctivae normal Neck supple, no JVD, thyroid normal and no carotid bruits General: trachea midline Resp normal respiratory effort, no retractions, no use of accessory muscles and clear to auscultation bilaterally Auscultation: Negative for rales, rhonchi or wheezes Cardio regular rate, regular rhythm, S1 normal heart sound, S2 normal heart sound, no murmurs, no rub and no gallops GI normal to inspection, nondistended, normoactive bowel sounds, soft to palpation, non-tender and non-distended Extremity Extremity Narrative: There is generalized ecchymosis of the patient's left upper outer leg over the area of her ORIF of her hip fracture. Neuro oriented x3, CN's II-XII intact bilaterally, no focal motor deficits and no sensory deficits noted Sensorium / Orientation: awake and alert Speech: speech normal Psych Psych Narrative: Patient has a flat affect Assessment & Plan Assessment/Plan (1) Intertrochanteric fracture of left femur: (2) Acute encephalopathy: (3) Closed intertrochanteric fracture of left hip: (4) Acute delirium: PLAN: Plan 1. Left intertrochanteric fracture secondary to osteoporosis-status postop day 5 insertion of intramedullary jules left femur-PT and OT continue to work with the patient, she will be placed in a [facility] facility when a bed is available #2 type 2 diabetes-patient's blood sugars will be monitored, sliding scale insulin will be administered as needed #3 essential hypertension-patient will remain on her home medication #4 hyperlipidemia-patient is on a statin #5 bipolar disorder-patient does not currently appear to be on any bipolar medication, she is on antidepressants and anxiety medication. #6 chronic pain syndrome-according to the daughter, patient is on medical marijuana at home for pain #7 osteoporosis-patient is on Fosamax #8 encephalopathy-possibly secondary to medication reaction-probable narcotic reaction-patient's IV narcotics were stopped, she is currently on Vicodin and Nubain for pain, she appears to be tolerating these well #9 acute blood loss anemia-probably secondary to blood loss from surgery-patient's hemoglobin is stable at this time #10 stage IIIb chronic kidney disease secondary to type 2 diabetes-patient's renal function will be monitored, she is now receiving Toradol and unfortunately I do not have any other pain medication I can give this patient due to her encephalopathy and possible reaction to narcotics at this time. I do not feel the patient has had an acute ischemic stroke. .Total clinical time spent by myself addressing the patient's medical issues, reviewing all of her data, and collaborating with patient's care team: 25 minutes Charges/Coding Visit Charges Inpatient E&M: 10163 Subs Hosp L1
--- NOTE | 2022-08-11 16:17 | CASEMGMT ---
D/C c4 planner Anum let family know that [facility] still full and [facility] does not take pt's insurance. Daughter states if [facility] cannot take pt then [facility] would be the next choice. HOANG Sorensen
[2022-08-11 16:56] LABS: Bedside Glucose 168 mg/dL (74-106)
[2022-08-11] MEDS: Atorvastatin Calcium 20 MG Tablet PO (21:35)
[2022-08-11 21:58] LABS: Bedside Glucose 129 mg/dL (74-106)
[2022-08-11] MEDS: QUEtiapine 25 MG Tablet PO (22:20)
[2022-08-12] VITALS (7 sets, daily range): BP systolic 140–173; BP diastolic 78–94; PULSE 87–102; RESP 16–18; TEMP 36.3–37.5; O2SAT 92–98
[2022-08-12] MEDS: Nalbuphine 10 MG/ML Ampul IV ×2 (03:22→13:52)
[2022-08-12] MEDS: 0.9% Normal Saline 1,000 ML 125 ML IV ×3 (05:34→21:46)
[2022-08-12 07:07] LABS: Bedside Glucose 140 mg/dL (74-106)
[2022-08-12] MEDS: Ketorolac 15 MG/ML Vial IV (08:52)
[2022-08-12] MEDS: 0.9% Saline Lock 10 ML Syringe IV (08:53)
[2022-08-12] MEDS: busPIRone 15 MG TABLET PO ×2 (08:56→22:24)
[2022-08-12] MEDS: Carvedilol 3.125 MG TABLET PO ×2 (08:57→16:51)
[2022-08-12] MEDS: Senna/Docusate Sodium 1 Tablet 2 TABLET PO ×2 (08:57→22:24)
[2022-08-12] MEDS: Ergocalciferol 1.25 MG (50, 000 UNIT) Capsule PO (08:57)
[2022-08-12] MEDS: Pantoprazole Sodium 40 MG Tablet PO ×2 (08:58→22:24)
[2022-08-12] MEDS: Loratadine 10 MG Tablet PO (08:58)
[2022-08-12] MEDS: Fluoxetine HCl 40 MG CAPSULE PO ×2 (08:58→22:24)
[2022-08-12] MEDS: Tolterodine Tartrate 2 MG CAP.SA PO (08:58)
[2022-08-12] MEDS: Lisinopril 40 MG Tablet PO (08:59)
[2022-08-12] MEDS: Calcium Carbonate 500 MG Tablet PO ×3 (09:07→17:03)
[2022-08-12] MEDS: HYDROcodone Bitartrate/Apap 5/325 Tablet PO ×3 (10:39→22:24)
[2022-08-12] MEDS: Ondansetron 4 MG/2 ML Vial IV (10:45)
--- NOTE | 2022-08-12 11:44 | CASEMGMT ---
Social Work [facility] reports they are able to accept patient. Requested to start precert via [facility]. Caprice Hartman HOUSEKEEPING LEAD, GATE PERSON
--- NOTE | 2022-08-12 12:25 | PN.HOSP_ITS ---
Reason for Visit Reason for Visit: Diagnoses Encephalopathy, unspecified (08/05/22) Disorientation, unspecified (08/05/22) Displaced intertrochanteric fracture of left femur, initial encounter for closed fracture (08/05/22) Fall on same level from slipping, tripping and stumbling without subsequent striking against object, initial encounter (08/05/22) Subjective Subjective Patient was seen and examined today, she appears more alert, I emphasized that she must try to get up and walk today with physical therapy and she must stay out of bed is much as she can tolerate. Also talked with her daughter who was in the room at the time my examination. Objective Data Objective Data Vital Signs: Vital Signs Temp Pulse Resp BP Pulse Ox O2 Del Method O2 Flow Rate 99.5 F H 102 H 18 140/89 H 94 Room Air 2 08/12/22 08:37 08/12/22 08:37 08/12/22 08:37 08/12/22 08:37 08/12/22 08:37 08/12/22 09:08 08/12/22 07:07 Oxygen Flow Rate (L/min) 2 Oxygen Delivery Method Room Air Weight: 79.6 kg Body Mass Index (BMI) 30.1 Intake & Output: Intake and Output for Last 24 Hours 08/10/22 08/11/22 08/12/22 23:59 23:59 23:59 Intake Total 3756.67 / 3756.67 3411.25 / 3411.25 1060 / 1060 Output Total 950 / 1350 1000 / 1000 500 / 500 Balance 2806.67 / 2406.67 2411.25 / 2411.25 560 / 560 Lab / Micro Data 08/11/22 05:23 08/11/22 05:23 Labs: Laboratory Results - last 24 hr 08/11/22 16:36: POC Glucose 168 H 08/11/22 21:33: POC Glucose 129 H 08/12/22 06:31: POC Glucose 140 H Micro: Microbiology 08/07/22 06:25 Blood Culture (Wb) - Right Wrist Blood Culture - Final No growth in 5 days. 08/07/22 06:20 Blood Culture (Wb) - Anticubital Right Blood Culture - Final No growth in 5 days. 08/07/22 08:45 Urine, Random Urine Culture - Final Culture exhibits no growth. Rhythm Strip Rhythm Strip: Sinus Rhythm Rate: 90 Ectopy: None Physical Exam Const alert, oriented x3, no apparent distress and average body habitus General Appearance: cooperative, well kempt and well developed Orientation / Consciousness: awake, oriented to person, oriented to place and oriented to time HEENT normocephalic, head/scalp atraumatic and moist oral mucous membranes Eyes PERRL, EOMs intact bilaterally and conjunctivae normal Neck supple, no JVD, thyroid normal and no carotid bruits General: trachea midline Resp normal respiratory effort, no retractions, no use of accessory muscles and clear to auscultation bilaterally Auscultation: Negative for rales, rhonchi or wheezes Cardio regular rate, regular rhythm, S1 normal heart sound, S2 normal heart sound, no murmurs, no rub and no gallops GI normal to inspection, nondistended, normoactive bowel sounds, soft to palpation, non-tender and non-distended Extremity no clubbing, cyanosis or edema Skin no rashes or lesions noted General Skin Exam: no breakdown Neuro oriented x3, CN's II-XII intact bilaterally, no focal motor deficits and no sensory deficits noted Sensorium / Orientation: awake and alert Speech: speech normal Psych affect normal Assessment & Plan Assessment/Plan (1) Closed intertrochanteric fracture of left hip: (2) Intertrochanteric fracture of left femur: (3) Acute encephalopathy: (4) Acute delirium: PLAN: Plan 1. Left intertrochanteric fracture secondary to osteoporosis-status postop day 6 insertion of intramedullary jules left femur-PT and OT continue to work with the patient, she will be placed in a residential facility when a bed is availab #2 type 2 diabetes-patient's blood sugars will be monitored, sliding scale insulin will be administered as needed #3 essential hypertension-patient will remain on her home medication #4 hyperlipidemia-patient is on a statin #5 bipolar disorder-patient does not currently appear to be on any bipolar medication, she is on antidepressants and anxiety medication. #6 chronic pain syndrome-according to the daughter, patient is on medical marijuana at home for pain #7 osteoporosis-patient is on Fosamax #8 encephalopathy-possibly secondary to medication reaction-probable narcotic reaction-patient's IV narcotics were stopped, she is currently on Vicodin and Nubain for pain, she appears to be tolerating these well #9 acute blood loss anemia-probably secondary to blood loss from surgery-hector barajas's hemoglobin is stable at this time #10 stage IIIb chronic kidney disease secondary to type 2 diabetes-patient's renal function will be monitored, she is now receiving Toradol and unfortunately I do not have any other pain medication I can give this patient due to her encephalopathy and possible reaction to narcotics at this time. I do not feel the patient has had an acute ischemic stroke. .Total clinical time spent by myself addressing the patient's medical issues, reviewing all of her data, and collaborating with patient's care team: 25 minutes Charges/Coding Visit Charges Inpatient E&M: 96486 Subs Hosp L1
--- NOTE | 2022-08-12 13:04 | PCM.PN.ORT ---
Subjective Subjective Patient seen and examined. Mental status back to baseline. Denies any fevers, chills, nausea vomiting, chest pain or shortness of breath. Reporting bilateral hip muscle spasm. Has not been out of bed. Objective Data Objective Data Vital Signs: Vital Signs Temp Pulse Resp BP Pulse Ox O2 Del Method O2 Flow Rate 99.5 F H 102 H 18 140/89 H 94 Room Air 2 08/12/22 08:37 08/12/22 08:37 08/12/22 08:37 08/12/22 08:37 08/12/22 08:37 08/12/22 09:08 08/12/22 07:07 Oxygen Flow Rate (L/min) 2 Oxygen Delivery Method Room Air Weight: 175 lb 7.807 oz Body Mass Index (BMI) 30.1 Intake & Output: Intake and Output for Last 24 Hours 08/10/22 08/11/22 08/12/22 23:59 23:59 23:59 Intake Total 3756.67 / 3756.67 3411.25 / 3411.25 1060 / 1060 Output Total 950 / 1350 1000 / 1000 500 / 500 Balance 2806.67 / 2406.67 2411.25 / 2411.25 560 / 560 Lab / Micro Data 08/11/22 05:23 08/11/22 05:23 Labs: Laboratory Results - last 24 hr 08/11/22 16:36: POC Glucose 168 H 08/11/22 21:33: POC Glucose 129 H 08/12/22 06:31: POC Glucose 140 H Micro: Microbiology 08/07/22 06:25 Blood Culture (Wb) - Right Wrist Blood Culture - Final No growth in 5 days. 08/07/22 06:20 Blood Culture (Wb) - Anticubital Right Blood Culture - Final No growth in 5 days. 08/07/22 08:45 Urine, Random Urine Culture - Final Culture exhibits no growth. Rhythm Strip Rhythm Strip: Sinus Rhythm Rate: 90 Ectopy: None Physical Exam Narrative General - A&Ox3, NAD. VSS/AF Left lower extremity -moderate serosanguineous drainage noted on proximal dressing otherwise dressings are clean dry and intact. Ecchymosis stable and thigh. Compartments soft and compressible. SILT Sural, Saphenous, SPN, DPN, Tibial N. distributions. DP, PT 2+. BCR. DF, PF, EHL 5/5. No calf TTP. Assessment & Plan Assessment/Plan (1) Intertrochanteric fracture of left femur: (2) Closed intertrochanteric fracture of left hip: PLAN: POD#6 s/p left femur CMN -Mental status back to baseline -Recheck H&H in the morning. Hemodynamically stable today. Drainage appears to be slowing. -Continue judicious use of narcotic pain medication in the setting of improving delirium. -Mobilize with therapy when able. Weightbearing as tolerated left lower extremity. -Will follow
[2022-08-12] MEDS: Nystatin Powder 15gm Bottle 1 APPLIC TOPICAL ×2 (13:09→22:24)
[2022-08-12 13:24] LABS: Bedside Glucose 215 mg/dL (74-106)
[2022-08-12] MEDS: Insulin Lispro 100 UNIT/ML INSULN.PEN SC ×3 (13:56→22:26)
[2022-08-12] MEDS: Methocarbamol 750 MG Tablet PO (16:50)
[2022-08-12] MEDS: Celecoxib 200 MG Capsule PO (16:50)
[2022-08-12] MEDS: Glucerna Shake 120 ML LIQUID PO (16:51)
[2022-08-12] MEDS: Metoprolol Tartrate 5 MG/5 ML Vial IV (17:04)
[2022-08-12 17:16] LABS: Bedside Glucose 220 mg/dL (74-106)
[2022-08-12] MEDS: Labetalol (Prefilled) 20 MG/4 ML IV (22:23)
[2022-08-12] MEDS: Atorvastatin Calcium 20 MG Tablet PO (22:24)
[2022-08-12 23:26] LABS: Bedside Glucose 161 mg/dL (74-106)
[2022-08-13] VITALS (7 sets, daily range): BP systolic 122–165; BP diastolic 68–88; PULSE 87–91; RESP 18–20; TEMP 36.6; O2SAT 96–98
--- NOTE | 2022-08-13 02:55 | EKG12_ITS ---
Test Reason : chest heaviness Blood Pressure : / mmHG Vent. Rate : 089 BPM Atrial Rate : 089 BPM P-R Int : 188 ms QRS Dur : 084 ms QT Int : 430 ms P-R-T Axes : 059 026 052 degrees QTc Int : 523 ms Normal sinus rhythm Prolonged QT Abnormal ECG When compared with ECG of 07-AUG-2022 04:34, ST no longer depressed in Lateral leads T wave inversion no longer evident in Lateral leads Confirmed by TERRI WRIGHT, KATARINA ([id number]), online editor WILFRID SÁNCHEZ ([id number]) on 08/16/2022 11:16:37 AM Referred By: Home Valverde Confirmed By:KATARINA MURRAY MD
[2022-08-13 04:05] LABS: Absolute Lymphocyte Count 1.74 X10^3/uL (0.83-4.51); Absolute Neutrophil Count 18.4 X10^3/uL (2.0-7.7); Basophil# 0.04 X10^3/uL; Basophil% 0.2 % (0-1); Eosinophil# 0.39 X10^3/uL; Eosinophils% 1.8 % (0-5); Hematocrit 25.4 % (37-47); Hemoglobin 8.1 g/dL (12.0-15.0); Lymphocyte # 1.74 X10^3/ul (0.83-4.51); Lymphocyte % 7.9 % (19-41); Mean Corp Hgb Conc 31.9 g/dL (32-36); Mean Corpuscular Hgb 30.1 pg (27.0-32.0); Mean Corpuscular Volume 94.4 fL (81-99); Mean Platelet Vol. 9.6 fl (6.2-12.0); Monocyte# 1.24 X10^3/uL; Monocyte% 5.6 % (0-10); NRBC Flagged by Analyzer 0 % (0-5); Neutrophil # 18.35 X10^3/uL (2.7-7.7); Neutrophil % 82.8 % (47-70); Platelet Count 216 K/mm3 (150-450); RBC Distribution Width CV 15.4 % (11.6-14.6); Red Blood Count 2.69 M/mm3 (4.2-5.4); White Blood Count 22.1 K/mm3 (4.4-11.0)
[2022-08-13 04:21] LABS: Troponin-I HS 14 pg/mL (3.0-54.0)
[2022-08-13] MEDS: HYDROcodone Bitartrate/Apap 5/325 Tablet PO ×2 (05:27→12:08)
[2022-08-13] MEDS: 0.9% Normal Saline 1,000 ML 125 ML IV (05:27)
[2022-08-13] MEDS: Insulin Lispro 100 UNIT/ML INSULN.PEN SC ×3 (06:27→21:46)
[2022-08-13 06:45] LABS: Bedside Glucose 181 mg/dL (74-106)
[2022-08-13] MEDS: Fluoxetine HCl 40 MG CAPSULE PO ×2 (08:41→21:42)
[2022-08-13] MEDS: Pantoprazole Sodium 40 MG Tablet PO ×2 (08:42→21:42)
[2022-08-13] MEDS: Senna/Docusate Sodium 1 Tablet 2 TABLET PO ×2 (08:42→21:42)
[2022-08-13] MEDS: busPIRone 15 MG TABLET PO ×2 (08:42→21:42)
[2022-08-13] MEDS: Loratadine 10 MG Tablet PO (08:42)
[2022-08-13] MEDS: Tolterodine Tartrate 2 MG CAP.SA PO (08:43)
[2022-08-13] MEDS: Lisinopril 40 MG Tablet PO (08:43)
[2022-08-13] MEDS: Carvedilol 3.125 MG TABLET PO ×2 (08:43→21:42)
[2022-08-13] MEDS: Celecoxib 200 MG Capsule PO (08:44)
[2022-08-13] MEDS: Glucerna Shake 120 ML LIQUID PO ×2 (08:44→12:09)
[2022-08-13] MEDS: Nystatin Powder 15gm Bottle 1 APPLIC TOPICAL ×2 (08:44→21:45)
[2022-08-13] MEDS: Methocarbamol 750 MG Tablet PO (08:46)
[2022-08-13] MEDS: Nalbuphine 10 MG/ML Ampul IV ×2 (08:47→20:08)
[2022-08-13] MEDS: Calcium Carbonate 500 MG Tablet PO ×2 (08:59→12:13)
--- NOTE | 2022-08-13 09:43 | RAD_ITS ---
STUDY: X-RAY CHEST REASON FOR EXAM: Female, 66 years old. elevated WBC TECHNIQUE: Single AP portable view of the chest. COMPARISON: 08/07/2022 FINDINGS: The lungs are clear and expanded. Large left pleural effusion. Normal size heart. Normal mediastinum and rayna. Normal visualized pulmonary arteries. Normal visualized aortic arch and descending thoracic aorta. Normal visualized thoracic spine. Multiple healed right rib fractures. There is no demonstrated abnormality of the visualized soft tissue structures of the upper abdomen. RAD/Chest 1 View IMPRESSION: Suspect large left pleural effusion. CT may be useful. Electronically Signed: Fransico Martinez MD at 10:07 EDT ,
[2022-08-13] MEDS: ALPRAZolam 0.25 MG Tablet 0.125 MG PO ×2 (10:42→21:43)
[2022-08-13 12:22] LABS: Bedside Glucose 230 mg/dL (74-106)
--- NOTE | 2022-08-13 15:32 | CT_ITS ---
ACR Level 3 findings have been noted. An addendum which confirms receipt of the report will follow. INDICATION: left pleural effusion vs atelectasis EXAMINATION: CT Chest W/O Contrast Injection TECHNIQUE: Helically acquired images were obtained of the chest without IV contrast. A radiation dose optimization technique was used for this scan. COMPARISON: None. FINDINGS: Lungs: Bilateral perihilar consolidations with groundglass opacities. Mediastinum: The heart is mildly enlarged. Small pericardial effusion. No mediastinal, hilar or axillary adenopathy. Mild aortic arch and coronary artery calcifications. Pleura: Large left and small right pleural effusions. Bones/Soft tissues: There are diffuse degenerative changes of the spine. There are multiple sclerotic and lytic lesions throughout the appendicular and axial skeleton with several chronic pathologic rib fractures as well as several acute minimally displaced pathologic rib fractures involving the left anterolateral third, fourth, fifth, sixth, seventh, and eighth ribs. There is also a partially visualized lytic lesion involving the T12 vertebral body with a pathologic fracture. Upper abdomen: Partially visualized 4.4 cm intermediate density cyst in the right upper renal pole. CT/Chest without Contrast IMPRESSION: Cardiomegaly with pulmonary edema, small pericardial effusion and large left/small right pleural effusions. Cannot rule out underlying infection or malignancy. Partially visualized 4.4 cm intermediate density cyst in the right upper renal pole is concerning for possible renal cell carcinoma. Recommend follow-up multiphase CT or MR abdomen with and without contrast for further evaluation. Findings concerning for osseous metastatic disease from an unknown primary with multiple sclerotic and lytic lesions throughout the appendicular and axial skeleton as well as several chronic pathologic rib fractures and several acute minimally displaced pathologic rib fractures involving the left anterolateral third, fourth, fifth, sixth, seventh, and eighth ribs. There is also a partially visualized lytic lesion involving the T12 vertebral body with a pathologic fracture. Recommend CT abdomen and pelvis with and without contrast for further evaluation. Electronically Signed: Gallito Crisostomo MD at 17:25 EDT ,
[2022-08-13] MEDS: Ipratropium/Albuterol Sulfate 3 ML AMPUL.NEB INHALATION (17:15)
[2022-08-13 17:49] LABS: Bedside Glucose 207 mg/dL (74-106)
--- NOTE | 2022-08-13 17:56 | PN.HOSP_ITS ---
Reason for Visit Reason for Visit: Diagnoses Encephalopathy, unspecified (08/05/22) Disorientation, unspecified (08/05/22) Displaced intertrochanteric fracture of left femur, initial encounter for closed fracture (08/05/22) Fall on same level from slipping, tripping and stumbling without subsequent striking against object, initial encounter (08/05/22) Subjective Subjective Patient was seen and examined today, earlier today she appeared anxious, I have placed her on a small amount of Xanax and she also had an elevated white blood cell count, this afternoon I obtained a chest x-ray which showed what appears to be a large left pleural effusion, CT scan of the chest was ordered which showed cardiomegaly with pulmonary edema and small right pericardial effusion with a large left pericardial effusion. Underlying infection could not be ruled out, there were also findings concerning for osseous metastatic disease from unknown primary with multiple sclerotic and lytic lesions throughout the appendicular and axial skeleton as well and several chronic pathologic rib fractures and several acute minimally displaced pathological rib fractures involving the left anterior lateral third fourth fifth sixth seventh and eighth ribs. There was al so a partially visualized lytic lesion involving T12 vertebral body with a pathological fracture. CT of the abdomen pelvis with and without contrast was recommended for further evaluation. Patient also had a 4.4 cm density in the right upper renal pole concerning for possible renal cell carcinoma. I had a discussion with the patient's daughter about these findings, patient will undergo a left thoracentesis tomorrow, she will need further work-up for metastatic cancer. Objective Data Objective Data Vital Signs: Vital Signs Temp Pulse Resp BP Pulse Ox O2 Del Method O2 Flow Rate 97.9 F 88 20 H 122/88 H 97 Nasal Cannula 2 08/13/22 14:17 08/13/22 17:15 08/13/22 17:15 08/13/22 14:17 08/13/22 14:17 08/13/22 14:17 08/13/22 14:17 Oxygen Flow Rate (L/min) 2 Oxygen Delivery Method Nasal Cannula Weight: 79.6 kg Body Mass Index (BMI) 30.1 Intake & Output: Intake and Output for Last 24 Hours 08/11/22 08/12/22 08/13/22 23:59 23:59 23:59 Intake Total 3411.25 / 3411.25 4000.83 / 4000.83 1401.67 / 1401.67 Output Total 1000 / 1000 1200 / 1200 Balance 2411.25 / 2411.25 2800.83 / 2800.83 1401.67 / 1401.67 Lab / Micro Data 08/13/22 03:55 08/11/22 05:23 Labs: Laboratory Results - last 24 hr 08/12/22 22:11: POC Glucose 161 H 08/13/22 03:55: WBC 22.1 H, RBC 2.69 L, Hgb 8.1 L, Hct 25.4 L, MCV 94.4, MCH 30.1, MCHC 31.9 L, RDW Std Deviation 48.0 H, RDW Coeff of Gerhard 15.4 H, Plt Count 216, MPV 9.6, Immature Gran % (Auto) 1.700 H, Neut % (Auto) 82.8 H, Lymph % (Auto) 7.9 L, [place] % (Auto) 5.6, Eos % (Auto) 1.8, Baso % (Auto) 0.2, Absolute Neuts (auto) 18.4 H, Absolute Lymphs (auto) 1.74, Nucleated RBC % 0, Troponin I High Sens 14 08/13/22 06:26: POC Glucose 181 H 08/13/22 12:04: POC Glucose 230 H 08/13/22 17:29: POC Glucose 207 H Micro: Microbiology 08/07/22 06:25 Blood Culture (Wb) - Right Wrist Blood Culture - Final No growth in 5 days. 08/07/22 06:20 Blood Culture (Wb) - Anticubital Right Blood Culture - Final No growth in 5 days. 08/07/22 08:45 Urine, Random Urine Culture - Final Culture exhibits no growth. Radiography Diagnostic Testing: Radiology Impression Chest X-Ray 08/13/22 09:43 IMPRESSION: Suspect large left pleural effusion. CT may be useful. Electronically Signed: Fransico Martinez MD at 10:07 EDT , Chest CT 08/13/22 15:32 IMPRESSION: Cardiomegaly with pulmonary edema, small pericardial effusion and large left/small right pleural effusions. Cannot rule out underlying infection or malignancy. Partially visualized 4.4 cm intermediate density cyst in the right upper renal pole is concerning for possible renal cell carcinoma. Recommend follow-up multiphase CT or MR abdomen with and without contrast for further evaluation. Findings concerning for osseous metastatic disease from an unknown primary with multiple sclerotic and lytic lesions throughout the appendicular and axial skeleton as well as several chronic pathologic rib fractures and several acute minimally displaced pathologic rib fractures involving the left anterolateral third, fourth, fifth, sixth, seventh, and eighth ribs. There is also a partially visualized lytic lesion involving the T12 vertebral body with a pathologic fracture. Recommend CT abdomen and pelvis with and without contrast for further evaluation. Electronically Signed: Gallito Crisostomo MD at 17:25 EDT , Rhythm Strip Rhythm Strip: Sinus Rhythm Rate: 90 Ectopy: None Physical Exam Const Constitutional Narrative: Patient is lethargic, she responds to painful stimuli General Appearance: well developed HEENT normocephalic, head/scalp atraumatic and moist oral mucous membranes Eyes PERRL, EOMs intact bilaterally and conjunctivae normal Neck supple, no JVD, thyroid normal and no carotid bruits General: trachea midline Resp normal respiratory effort, no retractions and no use of accessory muscles Resp Narrative: Decreased breath sounds are noted over the left lung base Auscultation: Negative for rales, rhonchi or wheezes Cardio regular rate, regular rhythm, S1 normal heart sound, S2 normal heart sound, no murmurs, no rub and no gallops GI normal to inspection, nondistended, normoactive bowel sounds, soft to palpation, non-tender and non-distended Extremity Extremity Narrative: There is generalized ecchymosis noted over the left leg near her hip surgical repair site Skin no rashes or lesions noted General Skin Exam: no breakdown Neuro CN's II-XII intact bilaterally, moves all extremities, no focal motor deficits and no sensory deficits noted Neuro Narrative: Patient is somnolent, she does respond to painful stimuli Speech: speech normal Psych Psych Narrative: Patient is somnolent, she does respond to painful stimuli Assessment & Plan Assessment/Plan (1) Acute delirium: (2) Closed intertrochanteric fracture of left hip: (3) Intertrochanteric fracture of left femur: (4) Acute encephalopathy: PLAN: Plan 1. Left intertrochanteric fracture secondary to osteoporosis-status postop day 7 insertion of intramedullary jules left femur-PT and OT continue to work with the patient, she [facility] in a [facility] when a bed is available #2 type 2 diabetes-patient's blood sugars will be monitored, sliding scale insulin will be administered as needed #3 essential hypertension-patient will remain on her home medication #4 hyperlipidemia-patient is on a statin #5 bipolar disorder-patient does not currently appear to be on any bipolar medication, she is on antidepressants and anxiety medication. #6 chronic pain syndrome-according to the daughter, patient is on medical marijuana at home for pain #7 osteoporosis-patient is on Fosamax #8 encephalopathy-possibly secondary to medication reaction-probable narcotic reaction-patient's IV narcotics were stopped, she is currently on Vicodin and Nubain for pain, she appears to be tolerating these well #9 acute blood loss anemia-probably secondary to blood loss from surgery- patient's hemoglobin is stable at this time #10 stage IIIb chronic kidney disease secondary to type 2 diabetes-patient's renal function will be monitored, she is now receiving Toradol and unfortunately I do not have any other pain medication I can give this patient due to her encephalopathy and possible reaction to narcotics at this time. #11 left pleural effusion with possible underlying congestive heart failure, I will place the patient on IV Lasix, due to the fact I cannot rule out an underlying pneumonia, I have decided to place the patient on Zosyn. Echocardiogram will be obtained, patient will need to undergo a left thoracentesis #[address] indicating widespread metastatic lesions over the appendicular and axial skeleton with several chronic pathological rib fractures and several acute minimally displaced pathological rib fractures involving the left third fourth fifth sixth seventh and eighth ribs, there is also a lytic lesion in [id number] will need further work-up concerning this. #12 hypoxia secondary to left pleural effusion and probable CHF-again patient will be placed on IV Lasix and echocardiogram will be obtained, she will undergo thoracentesis tomorrow .Total clinical time spent by myself addressing the patient's medical issues, reviewing all of her data, and collaborating with patient's care team: 55 minutes Charges/Coding Visit Charges Inpatient E&M: 05062 Subs Hosp L3
--- NOTE | 2022-08-13 19:01 | US_ITS ---
PROCEDURE: ULTRASOUND GUIDED THORACENTESIS. DATE: August 14, 2022. INDICATION: Female, 66 years old. Left pleural effusion. PHYSICIAN: Christopher Jackson M.D. PROCEDURE: The risks, benefits, and alternatives to the procedure were explained to the patient. The specific risks of bleeding, infection, and pneumothorax requiring chest tube insertion were discussed and accepted. Written informed consent was obtained. Ultrasonographic evaluation of the left lower pleural space was carried out. An adequate pocket was identified. The patient was placed in the sitting, upright position. The overlying skin was prepped and draped in sterile fashion. 1% lidocaine was administered subcutaneously for local anesthesia. Under ultrasound guidance, a 5French thoracentesis needle/catheter system was advanced into the right posterior lower pleural fluid collection. Approximately 900 mL of bloody fluid was drained. The catheter was removed, and a sterile dressing was applied. A specimen was collected and sent to the laboratory for analysis, as requested by the referring clinician. The patient tolerated the procedure well. A chest x-ray was ordered. US/Thoracentesis W US IMPRESSION: Ultrasound-guided left thoracentesis. Electronically Signed: Christopher Jackson MD at 15:18 EDT ,
[2022-08-13 19:26] LABS: Mucous, Urine 0 SEEN /hpf (<or=2+); Red Blood Cells-Urine 0 SEEN /hpf (0-5)
[2022-08-13 19:34] LABS: Color, Urine Yellow (Yellow); Glucose, Dipstick 50 mg/dl (Normal); Ketone-Dipstick Negative (Negative); Leukocyte Esterase-Dipstick 25 /ul (Negative); Nitrite-Dipstick Negative (Negative); Occult Blood-Urine Negative /ul (Negative); Protein-Dipstick 15 mg/dl (Negative); Specific Gravity, Urine 1.015 (1.002-1.030); Urine Bilirubin Dipstick Negative (Negative); Urine Clarity Clear (Clear); Urine Urobilinogen Normal (Normal)
[2022-08-13 19:46] LABS: Amorphous Sediment 1+ URATE; Bacteria RARE /hpf (None Seen); Renal Epithelial Cells 0-5 SEEN /hpf (0-5); Squamous Epithelial Cells - UA 0-5 SEEN /hpf (5-10); White Blood Cells 0-5 SEEN /hpf (0-5)
[2022-08-13 19:51] LABS: International Normalized Ratio 1.1; Prothrombin Time (Protime)PT. 14.1 SECONDS (11.7-14.9)
[2022-08-13 19:52] LABS: Partial Thromboplast Time 31.5 Seconds (24.1-36.2)
[2022-08-13 20:06] LABS: ALB/GLOB Ratio 0.8 RATIO (0.9-2.4); Alkaline Phosphatase 71 U/L (45-117); Globulin 2.8 g/dL (2.2-4.2); LDH 280 U/L (84-246); Protein, Total 5.1 g/dL (6.4-8.2)
[2022-08-13] MEDS: 0.9% Saline Lock 10 ML Syringe IV ×2 (20:09→21:47)
[2022-08-13] MEDS: Atorvastatin Calcium 20 MG Tablet PO (21:42)
[2022-08-13] MEDS: Furosemide 20 MG/2 ML VIAL IV (21:43)
[2022-08-13 22:12] LABS: Bedside Glucose 174 mg/dL (74-106)
[2022-08-14] VITALS (10 sets, daily range): BP systolic 136–173; BP diastolic 60–95; PULSE 76–99; RESP 18–28; TEMP 36.1–36.6; O2SAT 92–98
--- NOTE | 2022-08-14 | IMM_PTH ---
PATIENT: LUBA MARSH LOC: [facility] U#:[id number] AGE/SX: 66/F ROOM: [facility] RE08/05/[address]: Dr. Tamiko Quigley DO : 1955 BED: 1 DIS: 08/16/2022 SPEC #: [id number] RECD: 08/17/22 14:03 STATUS: TRICIA REQ #: [id number] DANIKA: 08/14/22 00:[address]: Tamiko Quigley DEPT: IMMUNOHISTOCHEMISTRY RECD BY: Celia Carlin ENTERED: 08/17/22 14:05 SP TYPE: IMMUNO OTHR DR: MD Dr. Atul Denney, MD Dr. Home Dickinson Dr., MD Dr. Lee Ann Baggott, MD Dr. Mark Tereletsky, DO Dr. Robert Leininger, MD Dr. Tanmay Panchabhai, MD Christina Muller, [facility] Rupal Boyer, [facility]ILD [facility]OLESCENT CARE-C Tissues: THORACIC FLUID Procedures: NAPSIN A (add) Broderick Ret (add) CK20 (add) CK5-6 (add) CK7 (add) CK8 (add) KI-67 (add) P53 (add) TTF1 (add) Vimentin (add) Pankeratin (initial) P40 (add) PHYSICIAN & [place] [id number] SPECIMEN INFORMATION: Tissue Source: Thoracentesis Clinical Info: Left chest pleural effusion Specimen Number: [id number] CPT code: 83517, 41935 x11 METHODOLOGY: Deparaffinized sections of prefer/formalin-fixed tissue or PAP/DQ stained slides are incubated with monoclonal/polyclonal antibodies/oligonucleotide probes. Localization is made via biotin free immunoperoxidase method. Appropriate controls are performed and reacted as expected. Results on target cell population are indicated in the following table: RESULTS: ANTIBODY / CLONE RESULT AE1-3 (AE1/AE3/PCK26) positive CK7 (OV-TL12/30) positive CK8 (39xnceA44) positive CK20 (KS20.8) negative Vimentin (V9) positive TTF-1 (8G7G3/1) negative Napsin A (Rabbit Polyclonal) negative CALRET (polyclonal) positive CK5-6 (D5 & 1684) positive P40 (BC28) negative P53 (DO-7) negative Ki-67 (30-9) negative These tests were developed and their performance characteristics determined by [facility]. They may not have been cleared or approved by the U.S. Food and Drug Administration. The FDA has determined that such clearance or approval is not necessary. The above immunohistochemical/dualISH markers are ordered and reviewed by the Pathologist. INTERPRETATION: Thoracentesis (cell block): No evidence of malignancy. AM:phillip 08/18/2022
[2022-08-14 05:23] LABS: Absolute Lymphocyte Count 1.52 X10^3/uL (0.83-4.51); Absolute Neutrophil Count 15.1 X10^3/uL (2.0-7.7); Basophil# 0.04 X10^3/uL; Basophil% 0.2 % (0-1); Eosinophil# 0.32 X10^3/uL; Eosinophils% 1.7 % (0-5); Hematocrit 27.3 % (37-47); Hemoglobin 8.3 g/dL (12.0-15.0); Lymphocyte # 1.52 X10^3/ul (0.83-4.51); Lymphocyte % 8.2 % (19-41); Mean Corp Hgb Conc 30.4 g/dL (32-36); Mean Corpuscular Hgb 29.6 pg (27.0-32.0); Mean Corpuscular Volume 97.5 fL (81-99); Mean Platelet Vol. 9.8 fl (6.2-12.0); Monocyte# 1.22 X10^3/uL; Monocyte% 6.6 % (0-10); NRBC Flagged by Analyzer 0.1 % (0-5); Neutrophil # 15.06 X10^3/uL (2.7-7.7); Neutrophil % 80.8 % (47-70); Platelet Count 271 K/mm3 (150-450); RBC Distribution Width SD 51.7 fl (35.1-43.9); White Blood Count 18.6 K/mm3 (4.4-11.0)
[2022-08-14 05:48] LABS: AST(SGOT) 23 U/L (15-37); Alanine Aminotransfer ALT/SGPT 16 U/L (13-56); Albumin, Serum 2.4 g/dL (3.2-5.0); Alkaline Phosphatase 69 U/L (45-117); Anion Gap 3 (5-15); BUN 18 mg/dL (7-18); BUN/Creat Ratio 26.9 RATIO (10-20); Bilirubin, Direct 0.36 mg/dL (0.00-0.30); Calcium,Total 8.2 mg/dL (8.5-10.1); Chloride 109 mmol/L (98-107); Creatinine, Serum 0.67 mg/dL (0.55-1.02); EST Glomerular Filtration Rate 93 mL/min (>60); Est Glom Filt Rate - Afr Amer 112 mL/min (>60); Globulin 2.9 g/dL (2.2-4.2); Glucose 160 mg/dL (74-106); Potassium 3.5 mmol/L (3.5-5.1); Protein, Total 5.3 g/dL (6.4-8.2); Sodium Level 139 mmol/L (136-145)
[2022-08-14] MEDS: Furosemide 20 MG/2 ML VIAL IV ×3 (06:17→22:36)
[2022-08-14 06:58] LABS: Bedside Glucose 143 mg/dL (74-106)
[2022-08-14] MEDS: Ipratropium/Albuterol Sulfate 3 ML AMPUL.NEB INHALATION ×3 (06:59→19:02)
--- NOTE | 2022-08-14 07:51 | CT_ITS ---
STUDY: CT ABDOMEN AND PELVIS WITH CONTRAST REASON FOR EXAM: Female, 66 years old. Metastatic cancer RADIATION DOSAGE (If Supplied By Facility): CTDIvol = ( 30.57 ) mGy, DLP = ( 1861.71 ) mGycm TECHNIQUE: Transaxial images were obtained from the dome of the diaphragm to the symphysis pubis with oral contrast. Oral and amp; IV Gastrografin and amp; 100mL Isovue-300 was administered. Sagittal and coronal images were reconstructed. Individualized dose optimization techniques were used for this CT. COMPARISON: Comparison is made with prior study dated August 14, 2019. FINDINGS: Bilateral pleural effusions left greater than right with bibasilar infiltration and/or atelectasis. Coronary artery calcification. Normal liver. Normal gallbladder and extrahepatic biliary system. Normal spleen. Normal pancreas. Normal bilateral adrenal glands. There is a 6.2 signed by 5.9 cm cyst in the upper midportion of the right kidney. 3.9 cm x 4.2 cm cyst in the lower pole of the left kidney. Normal visualized stomach. Normal small intestine. Normal colon. The appendix is visualized and appears normal. There is diffuse atherosclerotic calcification of the abdominal aorta, without a demonstrated aneurysm. Normal inferior vena cava. Normal retroperitoneum. Normal urinary bladder. There is absence of the uterus consistent with a prior hysterectomy. Increased soft tissue density in the lateral lower abdominal wall extending to the region of the left hip joint suggestive of postoperative left hip hematoma. Multiple compression fractures and heterogeneous appearance of the visualized lower thoracic and lumbar vertebrae suggestive of diffuse metastatic disease. Status post ORIF of proximal left femoral fracture. CT/Abdomen/Pelvis WITH Contrast IMPRESSION: Metastatic deposits in the visualized thoracic and lumbar vertebrae with multiple compression fractures. Bilateral renal cysts. Findings suggestive of postoperative changes in the soft tissues overlying the lower left subcutaneous tissues extending to the region of the left hip joint. Bilateral pleural effusions left greater than right with underlying infiltration and/or atelectasis. Electronically Signed: Christopher Jackson MD at 11:21 EDT ,
[2022-08-14 08:29] LABS: Bedside Glucose 161 mg/dL (74-106)
[2022-08-14] MEDS: Potassium Chloride Oral Tablet 20 MEQ PO ×2 (08:29→16:56)
[2022-08-14] MEDS: Carvedilol 3.125 MG TABLET PO ×2 (08:30→16:56)
[2022-08-14] MEDS: Loratadine 10 MG Tablet PO (08:30)
[2022-08-14] MEDS: Fluoxetine HCl 40 MG CAPSULE PO (08:30)
[2022-08-14] MEDS: Contrast Allergy Safety Check IV (08:32)
[2022-08-14] MEDS: Pantoprazole Sodium 40 MG Tablet PO (08:35)
[2022-08-14] MEDS: Senna/Docusate Sodium 1 Tablet 2 TABLET PO (08:35)
[2022-08-14] MEDS: Lisinopril 40 MG Tablet PO (08:36)
[2022-08-14] MEDS: Methocarbamol 750 MG Tablet PO (08:39)
[2022-08-14] MEDS: busPIRone 15 MG TABLET PO (08:42)
--- NOTE | 2022-08-14 08:45 | CASEMGMT ---
Discharge Planning Updates sent to [facility] to initiate precert. Anum Soler, Discharge Planning Asst.
[2022-08-14] MEDS: Calcium Carbonate 500 MG Tablet PO ×2 (08:47→13:48)
[2022-08-14] MEDS: Celecoxib 200 MG Capsule PO (08:47)
[2022-08-14] MEDS: Nystatin Powder 15gm Bottle 1 APPLIC TOPICAL ×2 (08:48→22:35)
[2022-08-14 11:39] LABS: Bedside Glucose 180 mg/dL (74-106)
[2022-08-14] MEDS: Tolterodine Tartrate 2 MG CAP.SA PO (13:48)
[2022-08-14] MEDS: Lidocaine 2% (20 ml mdv) 20 ML Vial INFILT (14:21)
--- NOTE | 2022-08-14 14:25 | FLU_PTH ---
PATIENT: LUBA MARSH LOC: [facility] U#:[id number] AGE/SX: 66/F ROOM: [facility] RE08/05/[address]: Dr. Tamiko Quigley DO : 1955 BED: 1 DIS: 08/16/2022 SPEC #: [id number] RECD: 08/16/22 12:05 STATUS: TRICIA RE #: [id number] DANIKA: 08/14/22 14:[address]: Tamiko Quigley DEPT: CYTOLOGY RECD BY: Marcy Monique ENTERED: 08/16/22 12:06 SP TYPE: Fluid OTHR DR: MD Dr. Atul Denney DO Dr. Joseph Agyepong, MD Dr. Joseph Prah, MD Dr. Lee Ann Baggott, MD Dr. Mark Tereletsky, DO Dr. Robert Leininger, MD Dr. Tanmay Panchabhai, MD Christina Muller, WARPER TENDER-C Rupal Boyer, WARPER TENDER-C Tissues: Pleural fluid, NOS Procedures: Special Stain Group II Surgery Specimen Level IV Cytospin Fluid HEADER OPERATION: Ultrasound-guided thoracentesis PRE-OP DIAGNOSIS: Left chest pleural effusion TISSUE SUBMITTED: Thoracentesis fluid for cytology DIAGNOSIS CYTOLOGY Thoracentesis fluid for cytology (cytospin and cell block): Negative for malignant cells. See comment. AM:phillip 08/17/2022 COMMENT Immunohistochemistry ([id number]) supports the above diagnosis. CYTOLOGY STUDY Slides are reviewed. CYTOLOGY GROSS Received is 80 ml of dark red cloudy fluid labeled with the patient's name and and designated per the requisition as thoracentesis. Submitted for cytology preparation including cell block. / phillip 08/16/2022 TC:5 CPT: 07726, 79200
--- NOTE | 2022-08-14 14:30 | RAD_ITS ---
STUDY: X-RAY CHEST REASON FOR EXAM: Female, 66 years old. Post thora TECHNIQUE: AP inspiration and expiration views COMPARISON: Comparison is made with prior study dated August 13, 2022. FINDINGS: No evidence of pneumothorax on the immediate post left thoracentesis. Residual pleural-parenchymal changes seen at the lung bases. RAD/Chest Insp/Exp 2 View IMPRESSION: No evidence of pneumothorax following the left thoracentesis. Residual pleural-parenchymal changes persist at the lung bases. Electronically Signed: Christopher Jackson MD at 15:10 EDT ,
--- NOTE | 2022-08-14 14:41 | CHAPLAIN ---
Type of Pastoral Visit _x__ Initial Visit ___ Follow-up Visit ___ On-call Visit ___ General Patient Visit ___ Spiritual Assessment ___ Family Conference ___ Bereavement ___ Rapid Response ___ Code Blue ___ Other (describe below) Pastoral Care Referral From ___ Patient _x__ Family ___ Nurse ___ Physician ___ Verifying Machine Operator ___ Certified Art Therapist ___ Other (describe below) Sacrament/Intervention _x__ Active listening ___ Anointing ___ Taoist ___ Bereavement ___ Communion ___ Adrianna exploration ___ ___ Life review _x__ Prayer ___ Reconciliation ___ Sacrament of Sick _x__ Supportive presence ___ Wedding ___ Other (describe below) Pastoral Comments many family members are present; patient will soon go to have procedure done; patient being treated by RN; offer of support to family and patient; all would like a prayer to be given before this procedure which is done; pt taken now
--- NOTE | 2022-08-14 14:41 | PCM.PN.HOSP ---
Reason for Visit Reason for Visit: Fall with left hip pain Subjective Subjective Mrs. Benvaidez is a 66-year-old white female who presented to the emergency department at [facility] [place] on 08/05/2022 after a fall related to her left foot drop that was mechanical in nature. She indicated she landed on her left side and had excruciating left lower extremity pain from her hip to her knee. Imaging revealed a left intertrochanteric fracture patient was taken to the OR on 08/06/2022 at which time a centimeter and was placed. The patient does have a known history of osteoporosis with previous vertebral compression fractures and kyphoplasty. She is on Fosamax and vitamin D supplementation at baseline. Stroke alert was called on 08/07/2022 as patient was having nonsensical conversation. Her hemoglobin dropped from 12.4-7.7 the day previous. Patient was evaluated by the stroke neurologist with initial NIH was 12. CT of the head was unremarkable. CTA of the head and neck showed no acute LVO and MRI was performed and showed no stroke. During her stay she had increasing confusion and her IV narcotics were changed to IV Toradol and some Nubain which she received to respond best to. Her mental status did return back to baseline per discussion with family. On the a.m. of 08/13/2022 her white count had trended up and a chest x-ray and a UA was performed UA was not consistent with infection however chest x-ray demonstrated what appeared to be a large left pleural effusion and therefore CT of her chest was performed. CT of her chest showed a small right pleural effusion and a large left pleural effusion. The patient was requiring supplemental oxygen at [address] also reported multiple osseous lytic lesions in the thoracic and lumbar spine as well as the ribs. Interestingly, CT of her head that was performed prior to surgery did not show any lytic lesions there. Further work-up was recommended. The case was discussed with the patient's daughter with regards to the findings and a thoracentesis was ordered and pending. I evaluated the patient on the a.m. of 08/14/2022 and family was at bedside. Family indicated that her mental status overall is much improved. She was complaining of bilateral lower extremity posterior leg pain. She has had random diffuse pain complaints throughout her stay. It does appear that the Nubain and hydrocodone seem to help her. Objective Data Objective Data Vital Signs: Vital Signs Temp Pulse Resp BP Pulse Ox O2 Del Method O2 Flow Rate 97.8 F 88 20 H 146/95 H 93 Nasal Cannula 4 08/14/22 09:00 08/14/22 13:09 08/14/22 13:09 08/14/22 09:00 08/14/22 09:00 08/14/22 10:00 08/14/22 10:00 Oxygen Flow Rate (L/min) 4 Oxygen Delivery Method Nasal Cannula Weight: 79.6 kg Body Mass Index (BMI) 30.1 Intake & Output: Intake and Output for Last 24 Hours 08/12/22 08/13/22 08/14/22 23:59 23:59 23:59 Intake Total 4000.83 / 4000.83 1641.67 / 1761.67 1290 / 1290 Output Total 1200 / 1200 550 / 1450 1999 / 1999 Balance 2800.83 / 2800.83 1091.67 / 311.67 -710 / -710 Lab / Micro Data 08/14/22 04:27 08/14/22 04:27 Labs: Laboratory Results - last 24 hr 08/13/22 17:29: POC Glucose 207 H 08/13/22 18:41: Urine Color Yellow, Urine Clarity Clear, Urine pH 6.0, Ur Specific [place] 1.015, Urine Protein 15 H, Urine Glucose (UA) 50 H, Urine Ketones Negative, Urine Occult Blood Negative, Urine Nitrite Negative, Urine Bilirubin Negative, Urine Urobilinogen Normal, Ur Leukocyte Esterase 25 H, Urine RBC 0 SEEN, Urine WBC 0-5 SEEN, Ur Squamous Epith Cells 0-5 SEEN, Ur Renal Epithelial Cell 0-5 SEEN, Amorphous Sediment 1+ URATE, Urine Bacteria RARE, Urine Mucus 0 SEEN 08/13/22 19:33: PT 14.1, INR 1.1, APTT 31.5, Alkaline Phosphatase 71, Lactate Dehydrogenase 280 H, Total Protein 5.1 L, Globulin 2.8, Albumin/Globulin Ratio 0.8 L 08/13/22 21:46: POC Glucose 174 H 08/14/22 04:27: WBC 18.6 H, RBC 2.80 L, Hgb 8.3 L, Hct 27.3 L, MCV 97.5, MCH 29.6, MCHC 30.4 L, RDW Std Deviation 51.7 H, RDW Coeff of Gerhard 16.0 H, Plt Count 271, MPV 9.8, Immature Gran % (Auto) 2.500 H, Neut % (Auto) 80.8 H, Lymph % (Auto) 8.2 L, [place] % (Auto) 6.6, Eos % (Auto) 1.7, Baso % (Auto) 0.2, Absolute Neuts (auto) 15.1 H, Absolute Lymphs (auto) 1.52, Nucleated RBC % 0.1, Sodium 139, Potassium 3.5, Chloride 109 H, Carbon Dioxide 27.0, Anion Gap 3 L, BUN 18, Creatinine 0.67, Estim Creat Clear Calc 46.50, Est GFR (MDRD) Af Amer 112, Est GFR (MDRD) Non-Af 93, BUN/Creatinine Ratio 26.9 H, Glucose 160 H, Calcium 8.2 L, Total Bilirubin 1.00, Direct Bilirubin 0.36 H, AST 23, ALT 16, Alkaline Phosphatase 69, Total Protein 5.3 L, Albumin 2.4 L, Globulin 2.9 08/14/22 06:22: POC Glucose 143 H 08/14/22 08:12: POC Glucose 161 H 08/14/22 11:20: POC Glucose 180 H Micro: Microbiology 08/07/22 06:25 Blood Culture (Wb) - Right Wrist Blood Culture - Final No growth in 5 days. 08/07/22 06:20 Blood Culture (Wb) - Anticubital Right Blood Culture - Final No growth in 5 days. 08/07/22 08:45 Urine, Random Urine Culture - Final Culture exhibits no growth. Radiography Diagnostic Testing: Radiology Impression Chest CT 08/13/22 15:32 IMPRESSION: Cardiomegaly with pulmonary edema, small pericardial effusion and large left/small right pleural effusions. Cannot rule out underlying infection or malignancy. Partially visualized 4.4 cm intermediate density cyst in the right upper renal pole is concerning for possible renal cell carcinoma. Recommend follow-up multiphase CT or MR abdomen with and without contrast for further evaluation. Findings concerning for osseous metastatic disease from an unknown primary with multiple sclerotic and lytic lesions throughout the appendicular and axial skeleton as well as several chronic pathologic rib fractures and several acute minimally displaced pathologic rib fractures involving the left anterolateral third, fourth, fifth, sixth, seventh, and eighth ribs. There is also a partially visualized lytic lesion involving the T12 vertebral body with a pathologic fracture. Recommend CT abdomen and pelvis with and without contrast for further evaluation. Electronically Signed: Gallito Crisostomo MD at 17:25 EDT , ADDENDUM: 08/13/22 1809 IMPRESSION: Cardiomegaly with pulmonary edema, small pericardial effusion and large left/small right pleural effusions. Cannot rule out underlying infection or malignancy. Partially visualized 4.4 cm intermediate density cyst in the right upper renal pole is concerning for possible renal cell carcinoma. Recommend follow-up multiphase CT or MR abdomen with and without contrast for further evaluation. Findings concerning for osseous metastatic disease from an unknown primary with multiple sclerotic and lytic lesions throughout the appendicular and axial skeleton as well as several chronic pathologic rib fractures and several acute minimally displaced pathologic rib fractures involving the left anterolateral third, fourth, fifth, sixth, seventh, and eighth ribs. There is also a partially visualized lytic lesion involving the T12 vertebral body with a pathologic fracture. Recommend CT abdomen and pelvis with and without contrast for further evaluation. N.B. : Mery Valdes RN, confirmed on 08/13/2022 18:02:56 (ET) that the healthcare facility has received the radiology report. Electronically Signed: Gallito Crisostomo MD at 17:25 EDT , Abdomen/Pelvis CT 08/14/22 07:51 IMPRESSION: Metastatic deposits in the visualized thoracic and lumbar vertebrae with multiple compression fractures. Bilateral renal cysts. Findings suggestive of postoperative changes in the soft tissues overlying the lower left subcutaneous tissues extending to the region of the left hip joint. Bilateral pleural effusions left greater than right with underlying infiltration and/or atelectasis. Electronically Signed: Christopher Jackson MD at 11:21 EDT , Rhythm Strip Rhythm Strip: Sinus Rhythm Rate: 90 Ectopy: None Physical Exam Const alert, oriented x3, no apparent distress and well nourished Constitutional Narrative: Upper middle-aged, obese, white female, lying in bed, somewhat groggy at this time however family reports her mental status was much better until she received her pain medication just prior to me coming in, appears comfortable and nontoxic at this time HEENT head/scalp atraumatic and moist oral mucous membranes HEENT Narrative: Mallampati 3, no thrush Head and Scalp: normocephalic Eyes PERRL, EOMs intact bilaterally and conjunctivae normal Eyes Narrative: Conjunctiva are mildly pale bilaterally, no scleral icterus Neck no lymphadenopathy and supple Neck Narrative: Trachea midline, neck is in for, no thyroid enlargement Resp normal respiratory effort, no retractions and no use of accessory muscles Resp Narrative: Markedly diminished breath sounds on the left specifically at the base with improved aeration at the apex but no adventitious sounds Auscultation: Negative for rales, rhonchi or wheezes Cardio regular rate, regular rhythm, S1 normal heart sound, S2 normal heart sound, no murmurs, no rub, no gallops and no clicks GI normal to inspection, nondistended, normoactive bowel sounds, soft to palpation and non-tender Extremity no clubbing, cyanosis or edema Extremity Narrative: Significant ecchymosis at the left lateral leg down the posterior lateral aspect of her left thigh to about the knee area, dressing is mildly saturated with blood, pedal pulses are 2+ Skin skin turgor normal, no jaundice, no petechiae and no mottling Skin Narrative: Changes as noted above Neuro oriented x3, CN's II-XII intact bilaterally and no focal motor deficits Neuro Narrative: Able to move all extremities however decreased movement left lower extremity secondary to pain Speech: speech normal Psych Psych Narrative: Sleepy as she was just medicated but appears calm and able to interact and answer questions appropriately Assessment & Plan Assessment/Plan (1) Toxic metabolic encephalopathy: (2) Intertrochanteric fracture of left femur: (3) Lytic bone lesions on xray: (4) Pleural effusion: (5) Shortness of breath: (6) Acute blood loss anemia: (7) Hypoxia: PLAN: Plan Acute left intertrochanteric fracture -? related to osteoporosis versus pathologic fracture--> unclear at this time -Postop day 8 CMN -Continue as needed Nubain -Continue as needed hydrocodone -As needed Tylenol -Weightbearing as tolerated -Restart subcu Lovenox for DVT prophylaxis tomorrow if stable hemoglobin--> held due to postoperative hematoma and anemia Multiple lytic lesions -MRI brain unremarkable/CT abdomen pelvis with contrast not assisting with diagnosing any primary -I discussed the case with interventional radiology and they are unable to do any biopsies on lytic lesions due to location -No cranial lytic lesions -Thoracentesis with cytology pending -Check CA 19-9, CEA, CA125 -Consult oncology Large left pleural effusion -Thoracentesis today -Once performed calculate lights criteria--> highly suspect this may be malignant -Pathology pending postthoracentesis -Continue Lasix as ordered -Echocardiogram pending Hypoxia/shortness of breath -Likely related to the above pleural effusion -Currently on 2 L -We will try to wean after thoracentesis is performed -There is a risk of reaccumulation -Patient was placed on Zosyn and will continue this for now until infectious work-up can be completed Acute blood loss anemia -Patient with large hematoma noted postoperatively and CT of the hip does show hematoma -Ecchymotic area over left hip -Hemoglobin appears to be stabilizing -If stable tomorrow will restart subcu Lovenox -CBC in a.m. Leukocytosis -Elevated then trended down but now trending back up with stability today -On Zosyn -Urine culture on presentation and blood cultures on presentation were unremarkable -Continue to monitor as this may be reactive DM-2 -Continue SSI -Accu-Cheks as ordered -Hold home oral agents Hypertension -Continue home lisinopril -Continue home carvedilol Hyperlipidemia -Continue home statin Osteoporosis -Continue vitamin D supplementation and Fosamax CKD stage IIIb -Renal function is completely normalized at 0.67 -Suspect patient may be slightly volume overloaded and this is not her baseline renal function -Continue Lasix -Repeat BMP in a.m. GERD -Continue home PPI Toxic/metabolic encephalopathy -Per family her mental status is much improved -Discontinue Xanax and substitute Ativan -Discontinue Seroquel and add low-dose Risperdal Depression/anxiety -Continue home fluoxetine -Continue home BuSpar Urinary incontinence -Continue home oxybutynin DVT prophylaxis -SCDs for now and if hemoglobin stable will restart Lovenox tomorrow 40 daily with plans to continue for 30 days postoperatively CODE STATUS -Full code Charges/Coding Visit Charges Inpatient E&M: 95193 Subs Hosp L3
[2022-08-14 15:16] LABS: Acid Fast Stain SEE PATHOLOGY REPORT; Cytology, Body Fluid / CSF SEE PATHOLOGY REPORT
--- NOTE | 2022-08-14 15:38 | CASEMGMT ---
Insurance approved patient to go to [place]. DAVIS placed a green sheet on patient's chart. DAVIS completed a PASRR on [facility]. Plan: d/c to [place] under skilled level of care on a PASRR. Physicians will transport patient. Corinne RAMON
[2022-08-14 15:54] LABS: Body Fluid Mononuclear WBC # 0.989 10^3/uL; Body Fluid Mononuclear WBC % 20.1 %; Body Fluid Polynuclear WBC # 3.936 10^3/uL; Body Fluid Polynuclear WBC % 79.9 %; Body Fluid Total Cells Counted 5.366 10^3/ul; Red Cell Count/Body Fluid 2.002 10^6/ul; White Blood Count/Body Fluid 4.925 10^3/uL
[2022-08-14 15:55] LABS: Auto B Fluid Analyzer BKGD Ct COUNTS W/IN LIMITS (W/IN LIMITS)
[2022-08-14 15:56] LABS: Appearance/Body Fluid TURBID; Color/Body Fluid RED
[2022-08-14 16:32] LABS: Protein, Body Fluid 2.6 g/dL (Not Establ.)
[2022-08-14 16:42] LABS: Glucose, Body Fluid 149 mg/dL (40-70); LDH,Body Fluid 475 Units/l (Not Establ.)
[2022-08-14] MEDS: Glucerna Shake 120 ML LIQUID PO (16:56)
[2022-08-14 17:08] LABS: Bedside Glucose 145 mg/dL (74-106)
[2022-08-14 17:16] LABS: Lymphocytes 10 %; Macrophages 9 %; Monocytes 24 %; Neutrophil (Segs) 57 %
[2022-08-14 17:17] LABS: Body Fluid QC Type(s) BF2Q; Source- Body Fluid THORACENTESIS
[2022-08-14] MEDS: HYDROcodone Bitartrate/Apap 5/325 Tablet PO (17:47)
--- NOTE | 2022-08-14 17:48 | ONC.CONSULT ---
Assessment & Plan Assessment/Plan (1) Pleural effusion: Status: Acute Code(s): J90 - Pleural effusion, not elsewhere classified Plan: Bilateral pleural effusions, status post thoracentesis. Will await cytology to determine if it is malignant. Continue supportive care. (2) Compression fracture: Status: Acute Plan: Some of these compression fractures are old and may be related to osteoporosis. Since CT does not show obvious primary, will await thoracentesis with cytology to determine if this is malignant. Continue supportive care, we will follow with further suggestions when pleural fluid cytology becomes available. Thank you. HPI Consult Data Date of Service:: 08/14/22 PCP / Referring Provider: ORESTES Cano Attending: Dr. Tamiko Quigley DO Chief Complaint Chief Complaint: Asked to see pt with compression fractures of vertebrae. History of Present Illness History of Present Illness: 66-year-old woman with history of multiple compression fractures , foot drop was admitted to the ER with after a fall. She was found to have into trochanteric fracture of the left hip. She had IM nailing on 08/06/2022. CT of the chest on 09/06/2022 showed bilateral pleural effusion with degenerative spine changes, multiple sclerotic and lytic lesions. CT of the abdomen and pelvis on 08/14/2022 showed multiple compression fractures changes suggestive of metastatic disease in thoracic and lumbar vertebrae, no obvious primary cancer. She had thoracentesis done on the left side this afternoon. she is now sedated. Advanced Directives Power of [employer] Processing Supervisor: No Living Will: No [facility] Medical History (Updated 08/14/22 @ 18:[address] Home Miller MD) Anxiety Atrial fibrillation Back pain due to injury Bipolar disorder Dementia Depression Essential (primary) hypertension Former smoker GERD (gastroesophageal reflux disease) Hearing loss, right Hiatal hernia High cholesterol Hyperlipidemia Injury of head and neck Irritable bowel Migraines Nonobstructive atherosclerosis of coronary artery NSTEMI (non-ST elevated myocardial infarction) (01/06/18) Obesity Psoriatic arthritis Restless legs Sleep apnea Takotsubo syndrome Type 2 diabetes mellitus Home Medications alendronate 70 mg tablet 70 mg PO SA osteoporosis 01/06/18 [History Last Taken Unknown] buspirone 7.5 mg tablet 15 mg PO BID anxiety 01/06/18 [History Last Taken Unknown] fluoxetine 40 mg capsule 40 mg PO BID anxiety 01/06/18 [History Last Taken Unknown] glipizide 5 mg tablet 10 mg PO DAILY antidiabetic 01/06/18 [History Last Taken Unknown] omeprazole 20 mg tablet,delayed release 20 mg PO DAILY GERD 01/06/18 [History Last Taken Unknown] oxybutynin chloride 5 mg tablet 10 mg PO DAILY 01/06/18 [History Last Taken Unknown] simvastatin 40 mg tablet 40 mg PO DAILY Cholesterole 01/06/18 [History Last Taken Unknown] carvedilol 3.125 mg tablet 3.125 mg PO BID #90 tabs 07/10/18 [Rx Last Taken Unknown] ergocalciferol (vitamin D2) 1,250 mcg (50,000 unit) capsule 50,000 unit PO SA supplement 02/12/19 [History Last Taken Unknown] lisinopril 20 mg tablet 20 mg PO DAILY #30 tabs 02/15/19 [Rx Last Taken Unknown] meloxicam 7.5 mg tablet 7.5 mg PO DAILY #30 tabs 02/15/19 [Rx Last Taken Unknown] fexofenadine 180 mg tablet 180 mg PO DAILY 07/06/22 [History Last Taken Unknown] Allergy/AdvReac Type Severity Reaction Status Date / Time codeine Allergy Itching Verified 08/05/22 17:54 naproxen AdvReac Other Verified 08/05/22 17:54 Family History Mother Cancer skin Father Cancer prostate Surgical History History of back surgery History of carpal tunnel release of both wrists History of hysterectomy History of left heart catheterization (01/07/18) Social History Smoking Status: Former smoker how long ago did patient quit smokin years ago alcohol intake: never substance use type: does not use caffeine: Yes Type: carbonated beverages Number of servings: 1 Physical Exam Narrative Elderly woman lying in bed, lethargic, patient cannot give history Neck Neck Narrative: Bruise L posterior neck. Lymph Lymphatic: no lymphadenopathy noted Resp normal respiratory effort and clear to auscultation bilaterally Cardio regular rate, regular rhythm, S1 normal heart sound and S2 normal heart sound GI normal to inspection, nondistended, normoactive bowel sounds Extremity Extremity Narrative: bruise L leg. Neuro Neuro Narrative: Patient cannot give history. Vital Signs Temperature 97.8 F 08/14/22 09:00 Temperature Source Oral 08/14/22 09:00 Pulse Rate 93 08/14/22 15:05 Pulse Strength Normal (2+) 08/14/22 10:00 Respiratory Rate 28 H 08/14/22 15:05 Respiratory Effort Normal, Non-Labored 08/14/22 15:05 Respiratory Depth Shallow 08/14/22 10:00 Respiratory Pattern Normal 08/14/22 15:05 Blood Pressure 173/81 H 08/14/22 15:05 Blood Pressure Mean 112 08/14/22 09:00 Blood Pressure Source Monitor 08/14/22 09:00 Blood Pressure Position Semi-Fowlers 08/14/22 09:00 Blood Pressure Location Left Arm 08/14/22 09:00 Pulse Ox 93 08/14/22 09:00 Oxygen Delivery Method Nasal Cannula 08/14/22 15:05 Oxygen Flow Rate (L/min) 4 08/14/22 15:05 Laboratory Results - last 24 hr 08/13/22 14:45: Fluid Glucose 149 H, Fluid Total Protein 2.6, Fluid LDH 475 08/13/22 17:29: POC Glucose 207 H 08/13/22 18:41: Urine Color Yellow, Urine Clarity Clear, Urine pH 6.0, Ur Specific [place] 1.015, Urine Protein 15 H, Urine Glucose (UA) 50 H, Urine Ketones Negative, Urine Occult Blood Negative, Urine Nitrite Negative, Urine Bilirubin Negative, Urine Urobilinogen Normal, Ur Leukocyte Esterase 25 H, Urine RBC 0 SEEN, Urine WBC 0-5 SEEN, Ur Squamous Epith Cells 0-5 SEEN, Ur Renal Epithelial Cell 0-5 SEEN, Amorphous Sediment 1+ URATE, Urine Bacteria RARE, Urine Mucus 0 SEEN 08/13/22 19:33: PT 14.1, INR 1.1, APTT 31.5, Alkaline Phosphatase 71, Lactate Dehydrogenase 280 H, Total Protein 5.1 L, Globulin 2.8, Albumin/Globulin Ratio 0.8 L 08/13/22 21:46: POC Glucose 174 H 08/14/22 04:27: WBC 18.6 H, RBC 2.80 L, Hgb 8.3 L, Hct 27.3 L, MCV 97.5, MCH 29.6, MCHC 30.4 L, RDW Std Deviation 51.7 H, RDW Coeff of Gerhard 16.0 H, Plt Count 271, MPV 9.8, Immature Gran % (Auto) 2.500 H, Neut % (Auto) 80.8 H, Lymph % (Auto) 8.2 L, [place] % (Auto) 6.6, Eos % (Auto) 1.7, Baso % (Auto) 0.2, Absolute Neuts (auto) 15.1 H, Absolute Lymphs (auto) 1.52, Nucleated RBC % 0.1, Sodium 139, Potassium 3.5, Chloride 109 H, Carbon Dioxide 27.0, Anion Gap 3 L, BUN 18, Creatinine 0.67, Estim Creat Clear Calc 46.50, Est GFR (MDRD) Af Amer 112, Est GFR (MDRD) Non-Af 93, BUN/Creatinine Ratio 26.9 H, Glucose 160 H, Calcium 8.2 L, Total Bilirubin 1.00, Direct Bilirubin 0.36 H, AST 23, ALT 16, Alkaline Phosphatase 69, Total Protein 5.3 L, Albumin 2.4 L, Globulin 2.9 08/14/22 06:22: POC Glucose 143 H 08/14/22 08:12: POC Glucose 161 H 08/14/22 11:20: POC Glucose 180 H 08/14/22 14:24: Fluid Source THORACENTESIS, Fluid Color RED, Fluid Appearance TURBID, Fluid WBC 4.925, Fluid RBC 2.002, Fluid Tot Cell Count 5.366 H, Fld Polynuclear WBCs # 3.936, Fld Polynuclear WBCs % 79.9, Fluid Mononuclear WBCs 0.989, Fld Mononuclear WBCs % 20.1, Fluid Neutrophils 57, Fluid Lymphocytes 10, Fluid Monocytes 24, Fluid Macrophages 9, Fl Pathologist Comment May follow, Fluid Comment 2 SEE COMMENT 08/14/22 16:51: POC Glucose 145 H Microbiology 08/14/22 14:25 Fluid - Pleural (Lung) Gram Stain - Preliminary Diagnostic Data Ribs w/Chest X-Ray 08/05/22 18:05 IMPRESSION: Old right rib fractures. Electronically Signed: Keaton Pineda DO at 20:07 EDT Reading Location ID and State: [facility] / [place] Tel [phone], Service support , Cervical Spine CT 08/05/22 18:20 IMPRESSION: Degenerative changes changes and discogenic disease as noted of the cervical spine. Electronically Signed: Keaton Edwin at 18:54 EDT , Hip/Pelvis X-Ray 08/06/22 06:30 IMPRESSION: Intraoperative images obtained for hardware localization. Electronically Signed: Fátima Bucio MD at 23:57 EDT , Brain CT 08/07/22 04:53 IMPRESSION: Negative Brain CT without contrast. Electronically Signed: Trevor Farmer MD at 5:20 EDT , ADDENDUM: 08/07/22 0529 IMPRESSION: Negative Brain CT without contrast. N.B. : The above Results were Read Back by Trevor Farmer MD to Home Valverde MD, and understanding confirmed on 08/07/2022 05:23:01 (ET). Electronically Signed: Trevor Farmer MD at 5:20 EDT , ADDENDUM: 08/07/22 0536 IMPRESSION: Negative Brain CT without contrast. N.B. : The above Results were Read Back by Trevor Farmer MD to Home Valverde MD, and understanding confirmed on 08/07/2022 05:29:17 (ET). Electronically Signed: Trevor Farmer MD at 5:20 EDT , Head/Neck CTA 08/07/22 05:47 IMPRESSION: No hemodynamically significant stenosis in the main intracranial arteries are in the arteries of neck. Electronically Signed: Trevor Farmer MD at 6:23 EDT Reading Location ID and State: [facility] / [place] Tel , Service support , ADDENDUM: 08/07/22 0736 IMPRESSION: No hemodynamically significant stenosis in the main intracranial arteries are in the arteries of neck. N.B. : The above Results were Read Back by Trevor Farmer MD to Home Valverde and understanding confirmed on 08/07/2022 07:29:46 (ET). Electronically Signed: Trevor Farmer MD at 6:23 EDT , Brain MRI 08/07/22 06:47 IMPRESSION: 1. No MRI evidence of acute or subacute ischemic infarct. 2. Limited study was performed without FLAIR sequence for stroke evaluation. Electronically Signed: Adria Feliz MD at 11:36 EDT , Lower Extremity CT 08/07/22 13:30 IMPRESSION: Osteopenia with postsurgical changes dynamic hip screw placement. Impacted comminuted intertrochanteric fracture with no callus formation. Soft tissue mass adjacent to the proximal femur extending proximally behind the gluteal musculature compatible with hematoma. Electronically Signed: Ajit Salcido MD at 14:26 EDT , Chest CT 08/13/22 15:32 IMPRESSION: Cardiomegaly with pulmonary edema, small pericardial effusion and large left/small right pleural effusions. Cannot rule out underlying infection or malignancy. Partially visualized 4.4 cm intermediate density cyst in the right upper renal pole is concerning for possible renal cell carcinoma. Recommend follow-up multiphase CT or MR abdomen with and without contrast for further evaluation. Findings concerning for osseous metastatic disease from an unknown primary with multiple sclerotic and lytic lesions throughout the appendicular and axial skeleton as well as several chronic pathologic rib fractures and several acute minimally displaced pathologic rib fractures involving the left anterolateral third, fourth, fifth, sixth, seventh, and eighth ribs. There is also a partially visualized lytic lesion involving the T12 vertebral body with a pathologic fracture. Recommend CT abdomen and pelvis with and without contrast for further evaluation. Electronically Signed: Gallito Crisostomo MD at 17:25 EDT , ADDENDUM: 08/13/22 1809 IMPRESSION: Cardiomegaly with pulmonary edema, small pericardial effusion and large left/small right pleural effusions. Cannot rule out underlying infection or malignancy. Partially visualized 4.4 cm intermediate density cyst in the right upper renal pole is concerning for possible renal cell carcinoma. Recommend follow-up multiphase CT or MR abdomen with and without contrast for further evaluation. Findings concerning for osseous metastatic disease from an unknown primary with multiple sclerotic and lytic lesions throughout the appendicular and axial skeleton as well as several chronic pathologic rib fractures and several acute minimally displaced pathologic rib fractures involving the left anterolateral third, fourth, fifth, sixth, seventh, and eighth ribs. There is also a partially visualized lytic lesion involving the T12 vertebral body with a pathologic fracture. Recommend CT abdomen and pelvis with and without contrast for further evaluation. N.B. : Mery Valdes RN, confirmed on 08/13/2022 18:02:56 (ET) that the healthcare facility has received the radiology report. Electronically Signed: Gallito Crisostomo MD at 17:25 EDT , Thoracentesis Ultrasound 08/13/22 19:01 IMPRESSION: Ultrasound-guided left thoracentesis. Electronically Signed: Christopher Jackson MD at 15:18 EDT , Abdomen/Pelvis CT 08/14/22 07:51 IMPRESSION: Metastatic deposits in the visualized thoracic and lumbar vertebrae with multiple compression fractures. Bilateral renal cysts. Findings suggestive of postoperative changes in the soft tissues overlying the lower left subcutaneous tissues extending to the region of the left hip joint. Bilateral pleural effusions left greater than right with underlying infiltration and/or atelectasis. Electronically Signed: Christopher Jackson MD at 11:21 EDT , Chest X-Ray 08/14/22 14:30 IMPRESSION: No evidence of pneumothorax following the left thoracentesis. Residual pleural-parenchymal changes persist at the lung bases. Electronically Signed: Christopher Jackson MD at 15:10 EDT , Charges/Coding Visit Charges Office Visits / Consults: 18102 IP Consult L3
--- NOTE | 2022-08-14 21:04 | CPS ---
Pt was found with nasal cannula connected to transport e tank O2 on 4liters but tank was empty. Pt saturation was 79%. Placed patient back on oxygen via wall flowmeter at 5liters. Patient saturation returned to 93% after 15 minutes. Notified day shift and rn shift mgr charge nurse ( during shift change).
[2022-08-15] VITALS (8 sets, daily range): BP systolic 125–173; BP diastolic 42–73; PULSE 78–98; RESP 14–20; TEMP 36.6–37.1; O2SAT 93–98
[2022-08-15] MEDS: Ipratropium/Albuterol Sulfate 3 ML AMPUL.NEB INHALATION ×4 (01:01→19:25)
--- NOTE | 2022-08-15 02:10 | NURSING ---
This rn assuming care of pt at this time.
[2022-08-15 05:00] LABS: Absolute Lymphocyte Count 1.86 X10^3/uL (0.83-4.51); Absolute Neutrophil Count 11.3 X10^3/uL (2.0-7.7); Basophil# 0.02 X10^3/uL; Basophil% 0.1 % (0-1); Eosinophils% 1.4 % (0-5); Hemoglobin 8.7 g/dL (12.0-15.0); Lymphocyte # 1.86 X10^3/ul (0.83-4.51); Lymphocyte % 12.8 % (19-41); Mean Corp Hgb Conc 32.2 g/dL (32-36); Mean Corpuscular Hgb 30.1 pg (27.0-32.0); Mean Corpuscular Volume 93.4 fL (81-99); Mean Platelet Vol. 9.9 fl (6.2-12.0); Monocyte# 0.95 X10^3/uL; Monocyte% 6.5 % (0-10); NRBC Flagged by Analyzer 0.1 % (0-5); Neutrophil % 77.7 % (47-70); Platelet Count 298 K/mm3 (150-450); RBC Distribution Width CV 16.3 % (11.6-14.6); RBC Distribution Width SD 49.4 fl (35.1-43.9); Red Blood Count 2.89 M/mm3 (4.2-5.4); White Blood Count 14.6 K/mm3 (4.4-11.0)
[2022-08-15] MEDS: Furosemide 20 MG/2 ML VIAL IV (05:24)
[2022-08-15 05:26] LABS: ALB/GLOB Ratio 0.8 RATIO (0.9-2.4); AST(SGOT) 18 U/L (15-37); Alanine Aminotransfer ALT/SGPT 16 U/L (13-56); Albumin, Serum 2.4 g/dL (3.2-5.0); Alkaline Phosphatase 75 U/L (45-117); Anion Gap 6 (5-15); BUN 17 mg/dL (7-18); Calcium,Total 8.3 mg/dL (8.5-10.1); Chloride 102 mmol/L (98-107); Creatinine, Serum 0.85 mg/dL (0.55-1.02); EST Glomerular Filtration Rate 71 mL/min (>60); Est Glom Filt Rate - Afr Amer 85 mL/min (>60); Globulin 3.2 g/dL (2.2-4.2); Glucose 157 mg/dL (74-106); Magnesium 1.2 mg/dL (1.6-2.6); Phosphorus 2.5 mg/dL (2.5-4.9); Protein, Total 5.6 g/dL (6.4-8.2); Sodium Level 139 mmol/L (136-145)
[2022-08-15 06:26] LABS: Bedside Glucose 169 mg/dL (74-106)
[2022-08-15] MEDS: Insulin Lispro 100 UNIT/ML INSULN.PEN SC ×4 (06:31→22:22)
[2022-08-15 06:54] LABS: Bedside Glucose 168 mg/dL (74-106)
--- NOTE | 2022-08-15 07:15 | RAD_ITS ---
STUDY: X-RAY CHEST REASON FOR EXAM: Female, 66 years old. effusion TECHNIQUE: AP COMPARISON: Previous day FINDINGS: Stable central pulmonary vascular congestion with basilar opacities. Small pleural effusions. There is mild cardiac enlargement. Visualized mediastinum and rayna are unremarkable. Normal visualized aortic arch and descending thoracic aorta. No acute bony process. There is no demonstrated abnormality of the visualized soft tissue structures of the upper abdomen. RAD/Chest 1 View (Portable) IMPRESSION: 1. No change from XR Chest 2 Views with report dated 08/14/2022 3:09 PM. 2. Vascular congestion/fluid overload with basilar infiltrates and small effusions. Electronically Signed: Mckinley Gutierrez (Brooks), at 7:45 EDT ,
--- NOTE | 2022-08-15 07:43 | CPS ---
Pt unable to do SMI or pep at this time.
[2022-08-15] MEDS: HYDROcodone Bitartrate/Apap 5/325 Tablet PO ×3 (07:58→21:28)
[2022-08-15] MEDS: Carvedilol 3.125 MG TABLET PO ×2 (07:59→16:54)
[2022-08-15] MEDS: Magnesium Sulfate 4gm/100mL 4 GM/100 ML IV.SOLN. IV (07:59)
[2022-08-15] MEDS: Potassium Chloride Oral Tablet 20 MEQ 60 MEQ PO (07:59)
[2022-08-15] MEDS: Celecoxib 200 MG Capsule PO (07:59)
[2022-08-15] MEDS: busPIRone 15 MG TABLET PO ×2 (08:00→21:28)
[2022-08-15] MEDS: Loratadine 10 MG Tablet PO (08:00)
[2022-08-15] MEDS: Tolterodine Tartrate 2 MG CAP.SA PO (08:00)
[2022-08-15] MEDS: Glucerna Shake 120 ML LIQUID PO ×4 (08:00→21:28)
[2022-08-15] MEDS: Nystatin Powder 15gm Bottle 1 APPLIC TOPICAL ×2 (08:00→21:29)
[2022-08-15] MEDS: Lisinopril 40 MG Tablet PO (08:01)
[2022-08-15] MEDS: Pantoprazole Sodium 40 MG Tablet PO ×2 (08:01→21:28)
[2022-08-15] MEDS: Fluoxetine HCl 40 MG CAPSULE PO ×2 (08:01→21:28)
[2022-08-15 11:25] LABS: Bedside Glucose 183 mg/dL (74-106)
[2022-08-15] MEDS: Calcium Carbonate 500 MG Tablet PO ×2 (12:19→16:58)
--- NOTE | 2022-08-15 13:01 | PCM.PN.HOSP ---
Reason for Visit Reason for Visit: Fall with left hip pain Subjective Subjective Patient is coherent and alert and oriented x4 today. Family at bedside. Daughter reports that her sister had bilateral mastectomies due to to separate types of breast cancer diagnosed in each breast. She reports her mother's not had a mammogram ever and has not really kept up on any chronic preventative medical screening or testing. They would like to follow-up with Dr. Theodore after discharge if possible. I will call him tomorrow and discussed the case with him prior to discharge. Patient is just complaining of some generalized body aching today that is consistent with her chronic pain. No issues overnight and mental status is much improved. Objective Data Objective Data Vital Signs: Vital Signs Temp Pulse Resp BP Pulse Ox O2 Del Method O2 Flow Rate 98.0 F 89 14 150/67 H 93 Nasal Cannula 4 08/15/22 09:05 08/15/22 09:05 08/15/22 09:05 08/15/22 09:05 08/15/22 09:05 08/15/22 09:23 08/15/22 09:23 Oxygen Flow Rate (L/min) [4] 4 Oxygen Flow Rate (L/min) [3] 4 Oxygen Flow Rate (L/min) [2] 4 Oxygen Flow Rate (L/min) [1 ( 4 Initial Baseline)] Oxygen Flow Rate (L/min) 4 Oxygen Delivery Method [4] Nasal Cannula Oxygen Delivery Method [3] Nasal Cannula Oxygen Delivery Method [2] Nasal Cannula Oxygen Delivery Method [1 ( Nasal Cannula Initial Baseline)] Oxygen Delivery Method Nasal Cannula Weight: 79.6 kg Body Mass Index (BMI) 30.1 Intake & Output: Intake and Output for Last 24 Hours 08/13/22 08/14/22 08/15/22 23:59 23:59 23:59 Intake Total 1641.67 / 1761.67 1880 / 1880 180.42 / 180.42 Output Total 550 / 1450 5450 / 5450 2100 / 2100 Balance 1091.67 / 311.67 -3570 / -3570 -1919.58 / -1919.58 Lab / Micro Data 08/15/22 04:20 08/15/22 04:20 Labs: Laboratory Results - last 24 hr 08/13/22 14:45: Fluid Glucose 149 H, Fluid Total Protein 2.6, Fluid LDH 475 08/14/22 14:24: Fluid Source THORACENTESIS, Fluid Color RED, Fluid Appearance TURBID, Fluid WBC 4.925, Fluid RBC 2.002, Fluid Tot Cell Count 5.366 H, Fld Polynuclear WBCs # 3.936, Fld Polynuclear WBCs % 79.9, Fluid Mononuclear WBCs 0.989, Fld Mononuclear WBCs % 20.1, Fluid Neutrophils 57, Fluid Lymphocytes 10, Fluid Monocytes 24, Fluid Macrophages 9, Fl Pathologist Comment May follow, Fluid Comment 2 SEE COMMENT 08/14/22 16:51: POC Glucose 145 H 08/14/22 22:34: POC Glucose 169 H 08/15/22 04:20: WBC 14.6 H, RBC 2.89 L, Hgb 8.7 L, Hct 27.0 L, MCV 93.4, MCH 30.1, MCHC 32.2 D, RDW Std Deviation 49.4 H, RDW Coeff of Gerhard 16.3 H, Plt Count 298, MPV 9.9, Immature Gran % (Auto) 1.500 H, Neut % (Auto) 77.7 H, Lymph % (Auto) 12.8 L, [place] % (Auto) 6.5, Eos % (Auto) 1.4, Baso % (Auto) 0.1, Absolute Neuts (auto) 11.3 H, Absolute Lymphs (auto) 1.86, Nucleated RBC % 0.1, Sodium 139, Potassium 3.0 L, Chloride 102, Carbon Dioxide 31.0, Anion Gap 6, BUN 17, Creatinine 0.85, Estim Creat Clear Calc 54.70, Est GFR (MDRD) Af Amer 85, Est GFR (MDRD) Non-Af 71, BUN/Creatinine Ratio 20.0, Glucose 157 H, Calcium 8.3 L, Phosphorus 2.5, Magnesium 1.2 L, Total Bilirubin 1.60 H, AST 18, ALT 16, Alkaline Phosphatase 75, Total Protein 5.6 L, Albumin 2.4 L, Globulin 3.2, Albumin/Globulin Ratio 0.8 L 08/15/22 06:29: POC Glucose 168 H 08/15/22 11:04: POC Glucose 183 H Micro: Microbiology 08/14/22 14:25 Fluid - Pleural (Lung) Gram Stain - Preliminary 08/14/22 14:25 Fluid - Pleural (Lung) Body Fluid Culture - Preliminary No growth-Final to follow 08/14/22 14:25 Fluid - Pleural (Lung) Anaerobic Culture - Final Prevotella bivia 08/07/22 06:25 Blood Culture (Wb) - Right Wrist Blood Culture - Final No growth in 5 days. 08/07/22 06:20 Blood Culture (Wb) - Anticubital Right Blood Culture - Final No growth in 5 days. 08/07/22 08:45 Urine, Random Urine Culture - Final Culture exhibits no growth. Radiography Diagnostic Testing: Radiology Impression Thoracentesis Ultrasound 08/13/22 19:01 IMPRESSION: Ultrasound-guided left thoracentesis. Electronically Signed: Christopher Jackson MD at 15:18 EDT , Chest X-Ray 08/14/22 14:30 IMPRESSION: No evidence of pneumothorax following the left thoracentesis. Residual pleural-parenchymal changes persist at the lung bases. Electronically Signed: Christopher Jackson MD at 15:10 EDT , Chest X-Ray 08/15/22 07:15 IMPRESSION: 1. No change from XR Chest 2 Views with report dated 08/14/2022 3:09 PM. 2. Vascular congestion/fluid overload with basilar infiltrates and small effusions. Electronically Signed: Mckinley Gutierrez (Brooks), at 7:45 EDT , Rhythm Strip Rhythm Strip: Sinus Rhythm Rate: 90 Ectopy: None Physical Exam Const alert, oriented x3, no apparent distress, average body habitus, healthy appearing and well nourished Constitutional Narrative: Upper middle-aged, obese, white female, lying in bed, sister and great great niece at bedside, patient appears comfortable nontoxic, interacts appropriately and mental status is good HEENT normocephalic, head/scalp atraumatic and moist oral mucous membranes HEENT Narrative: Dentition is poor, Mallampati is 2, no thrush Resp normal respiratory effort, no retractions, no use of accessory muscles and clear to auscultation bilaterally Resp Narrative: Good aeration bilateral bases with much improved aeration on the right Auscultation: Negative for rales, rhonchi or wheezes Cardio regular rate, regular rhythm, S1 normal heart sound, S2 normal heart sound, no murmurs, no rub, no gallops and no clicks GI normal to inspection, nondistended, normoactive bowel sounds, soft to palpation, non-tender and non-distended Extremity no clubbing, cyanosis or edema Extremity Narrative: Significant ecchymosis at the left lateral leg down the posterior lateral aspect of her left thigh to about the knee area, Neuro oriented x3, moves all extremities and no focal motor deficits Neuro Narrative: Able to move all extremities however decreased movement left lower extremity secondary to pain Sensorium / Orientation: awake, alert, oriented to person, oriented to place and oriented to time Speech: speech normal Psych affect normal Psych Narrative: Appropriately interactive, appears comfortable, eye contact is good, no signs of depression Assessment & Plan Assessment/Plan (1) Toxic metabolic encephalopathy: (2) Intertrochanteric fracture of left femur: (3) Lytic bone lesions on xray: (4) Pleural effusion: (5) Shortness of breath: (6) Acute blood loss anemia: (7) Hypoxia: PLAN: Plan Acute left intertrochanteric fracture -? related to osteoporosis versus pathologic fracture--> unclear at this time -Postop day 9 CMN -Continue as needed Nubain -Continue as needed hydrocodone -As needed Tylenol -Weightbearing as tolerated Multiple lytic lesions -MRI brain unremarkable/CT abdomen pelvis with contrast not assisting with diagnosing any primary -I discussed the case with interventional radiology and they are unable to do any biopsies on lytic lesions due to location -No cranial lytic lesions -Thoracentesis with cytology pending -CA 19-9, CEA, CA125--> all pending -Patient needs outpatient mammogram -We will refer to oncology as an outpatient Left-sided Prevotella empyema -Thoracentesis done on 08/14/2022 and fluid is growing Prevotella -Lights criteria consistent with exudative effusion -Pathology pending -Continue Lasix as ordered -We will hold off on echocardiogram -Continue to microbials but transition from Zosyn to Unasyn -Consult pulmonary medicine -Consult infectious disease Hypoxia/shortness of breath -Likely related to the above pleural effusion -Currently on 4 L -Wean oxygen as able -Kenneth chest x-ray from this morning looks improved and stable when compared to postthoracentesis x-ray -Patient was placed on Zosyn and will continue this for now until infectious work-up can be completed Acute blood loss anemia -Patient with large hematoma noted postoperatively and CT of the hip does show hematoma -Ecchymotic area over left hip -Hemoglobin remained stable -Restart subcu Lovenox -CBC in a.m. Leukocytosis -Trending down -On Zosyn and transition to Unasyn -Secondary to the above DM-2 -Continue SSI -Accu-Cheks as ordered -Hold home oral agents Hypertension -Continue home lisinopril -Continue home carvedilol Hyperlipidemia -Continue home statin Osteoporosis -Continue vitamin D supplementation and Fosamax CKD stage IIIb -Renal function is completely normalized at 0.67 -Suspect patient may be slightly volume overloaded and this is not her baseline renal function -Continue Lasix -Repeat BMP in a.m. GERD -Continue home PPI Toxic/metabolic encephalopathy -Resolved -Likely related to acute infection and medications Depression/anxiety -Continue home fluoxetine -Continue home BuSpar Urinary incontinence -Continue home oxybutynin DVT prophylaxis -Restart subcu Lovenox CODE STATUS -Full code Disposition: Pre-CERT to the [facility] has been obtained. Will await input from pulmonary medicine infectious disease tomorrow 08/16/2022 with regards to pleural fluid findings. Plan is outpatient follow-up with Dr. Theodore after discharge with regards to her lytic lesions. Hopeful for discharge in the next 24 to 48 hours Charges/Coding Visit Charges Inpatient E&M: 53716 Subs Hosp L2
[2022-08-15] MEDS: Enoxaparin 40 MG/0.4 ML Syringe SC (14:28)
--- NOTE | 2022-08-15 15:24 | EX.PCM.CONCC ---
Assessment & Plan Assessment/Plan (1) Pleural effusion: PLAN: I am favoring mostly a bloody traumatic L pleural effusion in a woman on chronic aspirin, since she fell onto and complained of pain in her left chest, left hip and neck. It may be a complication of aspiration, and this patient does admit to aspiration occasionally. The Prevotella bivia anerobe found in the pleural fluid culture (usually a vulvovaginal and/or oral anerobe) may be a contaminant, and would be covered by Unasyn (and augmentin). Since the patient is improving clinically, I recommend: - continue Unasyn/Augmentin x 8 days total (~5 days past the day she became afebrile). - repeat the CXR upright every other day x 2-3 to assure the effusion does not reaccumulate; if it does, re-tap to dry, and send pleural fluid at a minimum for repeat C&S, CBC diff, glucose, pH (if available), cytology. - no indication for chest tube; she is improving. - avoid ASA, NSAID and anticoagulation for ~1 week. - fall precautions. (2) Intertrochanteric fracture of left femur: PLAN: agree with rehab; patient is still largely bedbound. HPI Consult Data Date of Consult: 08/15/22 HPI Narrative HPI Narrative: LUBA MARSH, is a 66 F who presented for admission 1 week ago after a mechanical fall after tripping over a bag of mulch in her yard, sustaining intertrochanteric fracture of left femur. The remainder of the trauma survey did not show new rib fractures only old rib fractures on the right from 2005 when she fell off a horse and known vertebral compression fractures from [address] also showed large hematoma behind the hip at the gluteus, extending to the soft tissues of the back. She had ORIF with dynamic nail by orthopedics. She took an aspirin a day up through the date of her fall. Since her admission, she developed a right pleural effusion. This was tapped on 08/14/2022 and was approximately 700 cc of bloody, exudative, with elevated white count, normal glucose, neutrophilia, but appeared to be likely due to being a traumatic effusion. Cytology is pending. Notably, on August 12, she began to feel more short of breath and feverish. This resolved yesterday after the fluid was removed. Her white count peaked at 22,000 on August 13, and is now nearly back to normal at 14,000. She denied sick contacts, has no history of COVID or COVID shots. Denies flu shots. She has not gotten out of bed much which she states is because of charley horses. She has a history of falling occasionally and uses a cane to walk. She lives at home with her son and . Past medical history is reviewed. She is a smoker with no history of COPD or lung disease. She had a traumatic rib fractures 2005, denies DVT or PE, does have aspiration and falls occasionally. [facility] was asked to comment on whether she has empyema. Past family social history, medications allergies were reviewed. 12 system review is negative except as above. [facility] Medical History Anxiety Atrial fibrillation Back pain due to injury Bipolar disorder Dementia Depression Essential (primary) hypertension Former smoker GERD (gastroesophageal reflux disease) Hearing loss, right Hiatal hernia High cholesterol Hyperlipidemia Injury of head and neck Irritable bowel Migraines Nonobstructive atherosclerosis of coronary artery NSTEMI (non-ST elevated myocardial infarction) (01/06/18) Obesity Psoriatic arthritis Restless legs Sleep apnea Takotsubo syndrome Type 2 diabetes mellitus Home Medications alendronate 70 mg tablet 70 mg PO SA osteoporosis 01/06/18 [History Last Taken Unknown] buspirone 7.5 mg tablet 15 mg PO BID anxiety 01/06/18 [History Last Taken Unknown] fluoxetine 40 mg capsule 40 mg PO BID anxiety 01/06/18 [History Last Taken Unknown] glipizide 5 mg tablet 10 mg PO DAILY antidiabetic 01/06/18 [History Last Taken Unknown] omeprazole 20 mg tablet,delayed release 20 mg PO DAILY GERD 01/06/18 [History Last Taken Unknown] oxybutynin chloride 5 mg tablet 10 mg PO DAILY 01/06/18 [History Last Taken Unknown] simvastatin 40 mg tablet 40 mg PO DAILY Cholesterole 01/06/18 [History Last Taken Unknown] carvedilol 3.125 mg tablet 3.125 mg PO BID #90 tabs 07/10/18 [Rx Last Taken Unknown] ergocalciferol (vitamin D2) 1,250 mcg (50,000 unit) capsule 50,000 unit PO SA supplement 02/12/19 [History Last Taken Unknown] lisinopril 20 mg tablet 20 mg PO DAILY #30 tabs 02/15/19 [Rx Last Taken Unknown] meloxicam 7.5 mg tablet 7.5 mg PO DAILY #30 tabs 02/15/19 [Rx Last Taken Unknown] fexofenadine 180 mg tablet 180 mg PO DAILY 07/06/22 [History Last Taken Unknown] Allergy/AdvReac Type Severity Reaction Status Date / Time codeine Allergy Itching Verified 08/05/22 17:54 naproxen AdvReac Other Verified 08/05/22 17:54 Family History Mother Cancer skin Father Cancer prostate Surgical History History of back surgery History of carpal tunnel release of both wrists History of hysterectomy History of left heart catheterization (01/07/18) Social History Smoking Status: Former smoker how long ago did patient quit smokin years ago alcohol intake: never substance use type: does not use caffeine: Yes Type: carbonated beverages Number of servings: 1 ROS ROS Narrative 10 system review was negative except as above. Medical Records Data Attestation: I reviewed the patient's medical records Lab / Micro Data Attestation: I reviewed the patient's lab results. 08/15/22 04:20 08/15/22 04:20 Labs: Laboratory Results - last 24 hr 08/13/22 14:45: Fluid Glucose 149 H, Fluid Total Protein 2.6, Fluid LDH 475 08/14/22 14:24: Fluid Source THORACENTESIS, Fluid Color RED, Fluid Appearance TURBID, Fluid WBC 4.925, Fluid RBC 2.002, Fluid Tot Cell Count 5.366 H, Fld Polynuclear WBCs # 3.936, Fld Polynuclear WBCs % 79.9, Fluid Mononuclear WBCs 0.989, Fld Mononuclear WBCs % 20.1, Fluid Neutrophils 57, Fluid Lymphocytes 10, Fluid Monocytes 24, Fluid Macrophages 9, Fl Pathologist Comment May follow, Fluid Comment 2 SEE COMMENT 08/14/22 16:51: POC Glucose 145 H 08/14/22 22:34: POC Glucose 169 H 08/15/22 04:20: WBC 14.6 H, RBC 2.89 L, Hgb 8.7 L, Hct 27.0 L, MCV 93.4, MCH 30.1, MCHC 32.2 D, RDW Std Deviation 49.4 H, RDW Coeff of Gerhard 16.3 H, Plt Count 298, MPV 9.9, Immature Gran % (Auto) 1.500 H, Neut % (Auto) 77.7 H, Lymph % (Auto) 12.8 L, [place] % (Auto) 6.5, Eos % (Auto) 1.4, Baso % (Auto) 0.1, Absolute Neuts (auto) 11.3 H, Absolute Lymphs (auto) 1.86, Nucleated RBC % 0.1, Sodium 139, Potassium 3.0 L, Chloride 102, Carbon Dioxide 31.0, Anion Gap 6, BUN 17, Creatinine 0.85, Estim Creat Clear Calc 54.70, Est GFR (MDRD) Af Amer 85, Est GFR (MDRD) Non-Af 71, BUN/Creatinine Ratio 20.0, Glucose 157 H, Calcium 8.3 L, Phosphorus 2.5, Magnesium 1.2 L, Total Bilirubin 1.60 H, AST 18, ALT 16, Alkaline Phosphatase 75, Total Protein 5.6 L, Albumin 2.4 L, Globulin 3.2, Albumin/Globulin Ratio 0.8 L 08/15/22 06:29: POC Glucose 168 H 08/15/22 11:04: POC Glucose 183 H Micro: Microbiology 08/14/22 14:25 Fluid - Pleural (Lung) Gram Stain - Final 08/14/22 14:25 Fluid - Pleural (Lung) Body Fluid Culture - Preliminary No growth-Final to follow 08/14/22 14:25 Fluid - Pleural (Lung) Anaerobic Culture - Final Prevotella bivia Rhythm Strip Rhythm Strip: Sinus Rhythm Rate: 90 Ectopy: None Radiology Impression Chest X-Ray 08/15/22 07:15 IMPRESSION: 1. No change from XR Chest 2 Views with report dated 08/14/2022 3:09 PM. 2. Vascular congestion/fluid overload with basilar infiltrates and small effusions. Electronically Signed: Mckinley Gutierrez (Brooks), at 7:45 EDT , Charges/Coding Visit Charges Inpatient E&M: 32892 Init Hosp L3
[2022-08-15] MEDS: Potassium Chloride Oral Tablet 20 MEQ PO (16:54)
[2022-08-15] MEDS: Furosemide 40 MG/4 ML Vial IV (16:58)
[2022-08-15 17:28] LABS: Bedside Glucose 200 mg/dL (74-106)
[2022-08-15] MEDS: Senna/Docusate Sodium 1 Tablet 2 TABLET PO (21:28)
[2022-08-15] MEDS: Atorvastatin Calcium 20 MG Tablet PO (21:28)
[2022-08-15] MEDS: RisperiDONE 0.5 MG Tablet PO (21:28)
[2022-08-15 23:37] LABS: Bedside Glucose 187 mg/dL (74-106)
[2022-08-16 03:15] VITALS: BP 145/63; PULSE 85; RESP 16; TEMP 36.6; O2SAT 98
[2022-08-16 06:07] LABS: Basophil# 0.01 X10^3/uL; Basophil% 0.1 % (0-1); Eosinophils% 1.8 % (0-5); Hemoglobin 8.4 g/dL (12.0-15.0); Lymphocyte % 19.3 % (19-41); Mean Corp Hgb Conc 32.3 g/dL (32-36); Mean Corpuscular Hgb 30.4 pg (27.0-32.0); Mean Corpuscular Volume 94.2 fL (81-99); Mean Platelet Vol. 9.5 fl (6.2-12.0); Monocyte% 7.9 % (0-10); NRBC Flagged by Analyzer 0 % (0-5); Neutrophil # 7.95 X10^3/uL (2.7-7.7); Neutrophil % 69.7 % (47-70); Platelet Count 312 K/mm3 (150-450); RBC Distribution Width CV 17.2 % (11.6-14.6); RBC Distribution Width SD 55.5 fl (35.1-43.9); Red Blood Count 2.76 M/mm3 (4.2-5.4); White Blood Count 11.4 K/mm3 (4.4-11.0)
[2022-08-16] MEDS: HYDROcodone Bitartrate/Apap 5/325 Tablet PO ×2 (06:21→12:36)
[2022-08-16] MEDS: Insulin Lispro 100 UNIT/ML INSULN.PEN SC ×2 (06:22→12:37)
[2022-08-16 06:30] VITALS: BP 145/75
[2022-08-16 06:36] LABS: Bedside Glucose 162 mg/dL (74-106)
[2022-08-16 06:38] LABS: Anion Gap 5 (5-15); BUN 20 mg/dL (7-18); BUN/Creat Ratio 23.1 RATIO (10-20); Calcium,Total 8.2 mg/dL (8.5-10.1); Chloride 98 mmol/L (98-107); Creatinine, Serum 0.87 mg/dL (0.55-1.02); EST Glomerular Filtration Rate 69 mL/min (>60); Est Glom Filt Rate - Afr Amer 83 mL/min (>60); Estimated Creatinine Clearance 53.44 ml/min; Glucose 165 mg/dL (74-106); Potassium 3.3 mmol/L (3.5-5.1); Sodium Level 138 mmol/L (136-145)
[2022-08-16] MEDS: Ipratropium/Albuterol Sulfate 3 ML AMPUL.NEB INHALATION ×2 (06:41→14:16)
[2022-08-16 06:42] VITALS: PULSE 85; RESP 18; O2SAT 94
--- NOTE | 2022-08-16 07:19 | RAD_ITS ---
EXAM: XR CHEST, 1 VIEW CLINICAL INDICATION: L pleural effusion TECHNIQUE: Frontal view of the chest. COMPARISON: Previous chest radiographs of 08/15/2022 and 08/14/2022. FINDINGS: LUNGS AND PLEURAL SPACES: Limited degree of inspiration with crowding of the bronchovascular markings. Multiple bands of discoid atelectasis persist within the right mid to lower lung, mildly improved; the right hemidiaphragm remains mildly elevated. There is continued subtotal opacification of the retrocardiac portion of the left lower lung, most likely due to partial left lower lobe atelectasis. Mild patchy infiltrates are noted more laterally in the left lower lung, without significant interval change. No pneumothorax. Minimal stable blunting of the left lateral costophrenic angle, consistent with a minimal left pleural effusion. No definite right pleural effusion. HEART: Heart size remains mildly enlarged. Pulmonary vascularity is felt be within normal limits for technique and degree of inspiration. MEDIASTINUM: Stable mild elongation and calcification of the thoracic aorta. BONES/JOINTS: Old bilateral rib fractures are again noted. Extensive degenerative spurring noted within the thoracic and upper lumbar spine. SOFT TISSUES: Unremarkable. RAD/Chest 1 View (Portable) IMPRESSION: Interval resolution of pulmonary vascular congestion. Stable minimal left pleural effusion. No definite right pleural effusion is identified. Mild improvement of discoid atelectasis within the right mid to lower lung. Stable infiltrates within the left lower lung. Electronically Signed: Luis Rider MD at 7:54 EDT ,
[2022-08-16 09:15] VITALS: BP 134/62; PULSE 87; RESP 18; TEMP 36.8; O2SAT 96
[2022-08-16] MEDS: Potassium Chloride Oral Tablet 20 MEQ 40 MEQ PO (09:39)
[2022-08-16] MEDS: Fluoxetine HCl 40 MG CAPSULE PO (09:40)
[2022-08-16] MEDS: Pantoprazole Sodium 40 MG Tablet PO (09:40)
[2022-08-16] MEDS: busPIRone 15 MG TABLET PO (09:40)
[2022-08-16] MEDS: Enoxaparin 40 MG/0.4 ML Syringe SC (09:41)
[2022-08-16] MEDS: Tolterodine Tartrate 2 MG CAP.SA PO (09:41)
[2022-08-16] MEDS: Senna/Docusate Sodium 1 Tablet 2 TABLET PO (09:41)
[2022-08-16] MEDS: Potassium Chloride Oral Tablet 20 MEQ PO ×2 (09:42→16:39)
[2022-08-16] MEDS: Carvedilol 3.125 MG TABLET PO ×2 (09:42→16:39)
[2022-08-16] MEDS: Loratadine 10 MG Tablet PO (09:42)
[2022-08-16] MEDS: Furosemide 40 MG/4 ML Vial IV (09:42)
[2022-08-16] MEDS: Celecoxib 200 MG Capsule PO (09:42)
[2022-08-16] MEDS: Lisinopril 40 MG Tablet PO (09:43)
[2022-08-16] MEDS: Nystatin Powder 15gm Bottle 1 APPLIC TOPICAL (09:44)
[2022-08-16] MEDS: Glucerna Shake 120 ML LIQUID PO (09:46)
[2022-08-16] MEDS: 0.9% Saline Lock 10 ML Syringe IV (09:49)
[2022-08-16] MEDS: Calcium Carbonate 500 MG Tablet PO (09:58)
--- NOTE | 2022-08-16 10:30 | RAD_ITS ---
EXAM: XR BONE SURVEY, COMPLETE CLINICAL INDICATION: lytic lesions TECHNIQUE: Multiple views of the bones of the axial and appendicular skeleton. COMPARISON: ct chest 08.13.22 and ctap 08.14.22 FINDINGS: BONES/JOINTS: Sclerotic and lytic lesions in the lumbar spine concerning for metastatic disease. Scattered lytic lesions in the iliac bone concerning for metastatic disease. IM jules transfixes a left intertrochanteric fracture. Left hip IM nail extend beyond the cortex of the left femoral head. Multiple healed right rib fractures. Healed right inferior pubic ramus fracture. SOFT TISSUES: Left hip skin yasmeen. VASCULATURE: There are atherosclerotic vascular calcifications. RAD/Bone Survey Comp(Axial&Append) IMPRESSION: 1. Sclerotic and lytic lesions in the lumbar spine concerning for metastatic disease. 2. Scattered lytic lesions in the iliac bone concerning for metastatic disease. 3. Left hip IM nail extend beyond the cortex of the left femoral head. Electronically Signed: Papa Bellamy MD at 18:38 EDT ,
--- NOTE | 2022-08-16 11:34 | PCM.CONS.GEN ---
Assessment & Plan Assessment/Plan (1) Pleural effusion: PLAN: Large left pleural effusion and underwent thoracentesis which was bloody fluid. Suspect the effusion developed secondary to her trauma with her fall and left hip fracture that occurred roughly 10 days ago. Interestingly Prevotella isolated from the pleural fluid. We will treat the Prevotella with oral metronidazole 500 mg 3 times a day for 10 more days. In reviewing her most recent chest x-ray there is no residual significant effusion there that requires any surgical intervention. HPI Consult Data Date of Consult: 08/16/22 HPI Narrative Reason for Consultation: Prevotella isolated from the left pleural effusion HPI Narrative: LUBA MARSH, is a 66 F who presents after a traumatic fall and left hip fracture that required orthopedic repair of the left hip fracture. During her admission she was found to have a large left pleural effusion with and underwent diagnostic/therapeutic thoracentesis of the left pleural space. 900 cc of bloody fluid was removed. Pleural fluid grew out Prevotella species. Patient is currently on Unasyn and overall clinically stable. Follow-up chest x-ray personally reviewed shows improvement of the left pleural effusion and resolution of any pleural disease. She is currently on nasal cannula O2. No pleuritic chest pain. No significant gastrointestinal distress. Patient is otherwise hemodynamically stable and tolerating Unasyn well. Patient was seen by pulmonary service on this admission. [facility] Medical History Anxiety Atrial fibrillation Back pain due to injury Bipolar disorder Dementia Depression Essential (primary) hypertension Former smoker GERD (gastroesophageal reflux disease) Hearing loss, right Hiatal hernia High cholesterol Hyperlipidemia Injury of head and neck Irritable bowel Migraines Nonobstructive atherosclerosis of coronary artery NSTEMI (non-ST elevated myocardial infarction) (01/06/18) Obesity Psoriatic arthritis Restless legs Sleep apnea Takotsubo syndrome Type 2 diabetes mellitus Home Medications alendronate 70 mg tablet 70 mg PO SA osteoporosis 01/06/18 [History Last Taken Unknown] buspirone 7.5 mg tablet 15 mg PO BID anxiety 01/06/18 [History Last Taken Unknown] fluoxetine 40 mg capsule 40 mg PO BID anxiety 01/06/18 [History Last Taken Unknown] glipizide 5 mg tablet 10 mg PO DAILY antidiabetic 01/06/18 [History Last Taken Unknown] omeprazole 20 mg tablet,delayed release 20 mg PO DAILY GERD 01/06/18 [History Last Taken Unknown] oxybutynin chloride 5 mg tablet 10 mg PO DAILY 01/06/18 [History Last Taken Unknown] simvastatin 40 mg tablet 40 mg PO DAILY Cholesterole 01/06/18 [History Last Taken Unknown] carvedilol 3.125 mg tablet 3.125 mg PO BID #90 tabs 07/10/18 [Rx Last Taken Unknown] ergocalciferol (vitamin D2) 1,250 mcg (50,000 unit) capsule 50,000 unit PO SA supplement 02/12/19 [History Last Taken Unknown] lisinopril 20 mg tablet 20 mg PO DAILY #30 tabs 02/15/19 [Rx Last Taken Unknown] meloxicam 7.5 mg tablet 7.5 mg PO DAILY #30 tabs 02/15/19 [Rx Last Taken Unknown] fexofenadine 180 mg tablet 180 mg PO DAILY 07/06/22 [History Last Taken Unknown] Allergy/AdvReac Type Severity Reaction Status Date / Time codeine Allergy Itching Verified 08/05/22 17:54 naproxen AdvReac Other Verified 08/05/22 17:54 Family History Mother Cancer skin Father Cancer prostate Surgical History History of back surgery History of carpal tunnel release of both wrists History of hysterectomy History of left heart catheterization (01/07/18) Social History Smoking Status: Former smoker how long ago did patient quit smokin years ago alcohol intake: never substance use type: does not use caffeine: Yes Type: carbonated beverages Number of servings: 1 ROS ROS Narrative As stated in history of present illness others negative Physical Exam Narrative Alert responsive does not appear toxic. Lungs are clear heart exam S1-S2 abdomen is obese but soft. Lab / Micro Data 08/16/22 05:15 08/16/22 05:15 Labs: Laboratory Results - last 24 hr 08/15/22 16:52: POC Glucose 200 H 08/15/22 22:21: POC Glucose 187 H 08/16/22 05:15: WBC 11.4 H, RBC 2.76 L, Hgb 8.4 L, Hct 26.0 L, MCV 94.2, MCH 30.4, MCHC 32.3, RDW Std Deviation 55.5 H, RDW Coeff of Gerhard 17.2 H, Plt Count 312, MPV 9.5, Immature Gran % (Auto) 1.200 H, Neut % (Auto) 69.7, Lymph % (Auto) 19.3, [place] % (Auto) 7.9, Eos % (Auto) 1.8, Baso % (Auto) 0.1, Absolute Neuts (auto) 8.0 H, Absolute Lymphs (auto) 2.20, Nucleated RBC % 0, Sodium 138, Potassium 3.3 L, Chloride 98, Carbon Dioxide 35.0 H, Anion Gap 5, BUN 20 H, Creatinine 0.87, Estim Creat Clear Calc 53.44, Est GFR (MDRD) Af Amer 83, Est GFR (MDRD) Non-Af 69, BUN/Creatinine Ratio 23.1 H, Glucose 165 H, Calcium 8.2 L 08/16/22 06:17: POC Glucose 162 H Micro: Microbiology 08/14/22 14:25 Fluid - Pleural (Lung) Gram Stain - Final 08/14/22 14:25 Fluid - Pleural (Lung) Body Fluid Culture - Preliminary No growth-Final to follow 08/14/22 14:25 Fluid - Pleural (Lung) Anaerobic Culture - Final Prevotella bivia Rhythm Strip Rhythm Strip: Sinus Rhythm Rate: 90 Ectopy: None Radiology Impression Chest X-Ray 08/16/22 07:19 IMPRESSION: Interval resolution of pulmonary vascular congestion. Stable minimal left pleural effusion. No definite right pleural effusion is identified. Mild improvement of discoid atelectasis within the right mid to lower lung. Stable infiltrates within the left lower lung. Electronically Signed: Luis Rider MD at 7:54 EDT ,
[2022-08-16] MEDS: metroNIDAZOLE 500 MG Tablet PO (12:36)
[2022-08-16 12:59] LABS: Bedside Glucose 187 mg/dL (74-106)
[2022-08-16 14:17] VITALS: PULSE 80; RESP 18
--- NOTE | 2022-08-16 15:03 | PN.CC_ITS ---
Assessment & Plan Assessment/Plan (1) Pleural effusion: PLAN: Resolved left bloody pleural effusion, possibly due to combination of trauma and infection with Prevotella bivia anerobe without empyema. The Prevotella may be a contaminant. Patient has improved clinically and radiographically. There is been no recurrence of the pleural effusion on the left, minimal residual, no need to be tapped at this time. - repeat the CXR upright on SundayAugust 18 to assure the effusion does not reaccumulate; if it does, re-tap to dry, and send pleural fluid at a minimum for repeat C&S, CBC diff, glucose, pH (if available), cytology. - fall precautions. - Aggressive bronchopulmonary hygiene, incentive spirometry, mobilization due to residual atelectasis, which puts her at increased risk of recurrent pneumonia, and pulmonary restriction if she heals with pleural fibrotic changes. PLAN: Plan Patient has improved. [facility] [place] will sign off for now, please call if further input is needed. Thank you for the consult. Subjective Subjective Patient is feeling slightly better. No air hunger, no cough fevers chills or hemoptysis. Still has severe pain with any motion due to a combination of her left-sided hematoma and recovering from left ORIF. Today's chest x-ray shows improved bilateral infiltrates as she has diuresed, persistent bibasilar atelectasis, minimal residual fluid in the left pleural space with no increase from prior. Her peripheral and facial edema has improved significantly after diuresis. Objective Data Objective Data Vital Signs: Vital Signs Temp Pulse Resp BP Pulse Ox O2 Del Method O2 Flow Rate 98.2 F 80 18 134/62 H 96 Nasal Cannula 3 08/16/22 09:15 08/16/22 14:17 08/16/22 14:17 08/16/22 09:15 08/16/22 09:15 08/16/22 09:27 08/16/22 09:27 Oxygen Flow Rate (L/min) [4] 4 Oxygen Flow Rate (L/min) [3] 4 Oxygen Flow Rate (L/min) [2] 4 Oxygen Flow Rate (L/min) [1 ( 4 Initial Baseline)] Oxygen Flow Rate (L/min) 3 Oxygen Delivery Method [4] Nasal Cannula Oxygen Delivery Method [3] Nasal Cannula Oxygen Delivery Method [2] Nasal Cannula Oxygen Delivery Method [1 ( Nasal Cannula Initial Baseline)] Oxygen Delivery Method Nasal Cannula Weight: 175 lb 7.807 oz Body Mass Index (BMI) 30.1 Intake & Output: Intake and Output for Last 24 Hours 08/14/22 08/15/22 08/16/22 23:59 23:59 23:59 Intake Total 1880 / 1880 404.42 / 404.42 224 / 224 Output Total 5450 / 5450 3800 / 3800 350 / 350 Balance -3570 / -3570 -3395.58 / -3395.58 -126 / -126 Lab / Micro Data 08/16/22 05:15 08/16/22 05:15 Labs: Laboratory Results - last 24 hr 08/15/22 16:52: POC Glucose 200 H 08/15/22 22:21: POC Glucose 187 H 08/16/22 05:15: WBC 11.4 H, RBC 2.76 L, Hgb 8.4 L, Hct 26.0 L, MCV 94.2, MCH 30.4, MCHC 32.3, RDW Std Deviation 55.5 H, RDW Coeff of Gerhard 17.2 H, Plt Count 312, MPV 9.5, Immature Gran % (Auto) 1.200 H, Neut % (Auto) 69.7, Lymph % (Auto) 19.3, [place] % (Auto) 7.9, Eos % (Auto) 1.8, Baso % (Auto) 0.1, Absolute Neuts (auto) 8.0 H, Absolute Lymphs (auto) 2.20, Nucleated RBC % 0, Sodium 138, Potassium 3.3 L, Chloride 98, Carbon Dioxide 35.0 H, Anion Gap 5, BUN 20 H, Creatinine 0.87, Estim Creat Clear Calc 53.44, Est GFR (MDRD) Af Amer 83, Est GFR (MDRD) Non-Af 69, BUN/Creatinine Ratio 23.1 H, Glucose 165 H, Calcium 8.2 L 08/16/22 06:17: POC Glucose 162 H 08/16/22 12:30: POC Glucose 187 H Current medications were reviewed August 16, include Tylenol, DuoNeb, Unasyn IV, atorvastatin, buspirone, calcium, carvedilol, celecoxib. Lovenox, vitamin D, fluoxetine, furosemide 40 mg IV twice daily, hydralazine as needed, hydrocodone with acetaminophen as needed, lisinopril 40 mg daily, loratadine 10 mg daily, lorazepam 0.5 mg every 8 as needed pain, metoprolol, Flagyl 500 mg 3 times daily, methocarbamol 750 mg every 6, nystatin twice daily, pantoprazole 40 mg twice daily, potassium 20 mill equivalents twice daily, risperidone 1.5 at bedtime, tolterodine tartrate 2 mg daily, tramadol as needed and other as needed. Micro: Microbiology 08/14/22 14:25 Fluid - Pleural (Lung) Gram Stain - Final 08/14/22 14:25 Fluid - Pleural (Lung) Body Fluid Culture - Preliminary No growth-Final to follow 08/14/22 14:25 Fluid - Pleural (Lung) Anaerobic Culture - Final Prevotella bivia 08/07/22 06:25 Blood Culture (Wb) - Right Wrist Blood Culture - Final No growth in 5 days. 08/07/22 06:20 Blood Culture (Wb) - Anticubital Right Blood Culture - Final No growth in 5 days. 08/07/22 08:45 Urine, Random Urine Culture - Final Culture exhibits no growth. Radiography Diagnostic Testing: Radiology Impression Chest X-Ray 08/16/22 07:19 IMPRESSION: Interval resolution of pulmonary vascular congestion. Stable minimal left pleural effusion. No definite right pleural effusion is identified. Mild improvement of discoid atelectasis within the right mid to lower lung. Stable infiltrates within the left lower lung. Electronically Signed: Luis Rider MD at 7:54 EDT , Rhythm Strip Rhythm Strip: Sinus Rhythm Rate: 90 Ectopy: None Physical Exam Narrative Well-developed chronically ill-appearing woman who is laying on her side, mildly sedated, no respiratory distress. HEENT: Facial edema has resolved. Mucous membranes moist. Nasal cannula in place. Lungs are clear bilaterally, no wheezes rales or rhonchi. Heart tachycardic S1-S2 Abdomen is soft nontender Extremities have trace pitting edema. Neuro nonfocal. Still has great difficulty turning sitting up on her own because of pain and/or motivation. Charges/Coding Visit Charges Inpatient E&M: 04243 Subs Hosp L2
--- NOTE | 2022-08-16 15:06 | PCM.TXEXTCAR ---
Diet Diet Order/Speech Therapy: 08/09/22 12:32 Diabetic [Diet: Consistent Carb - Calorie Controlled] Food consistency:: Easy to Chew Liquid Consistency:: Regular/Thin Is pt able to select menu?: No Diet Comments: Direct sup/assistance by staff ONLY How many daily calories?: 1800 calorie Routine Orders/Code Status Routine Lab Work: CBC (5 day) and BMP (5 days) Code Status: Full Code Wound(s) LEFT KNEE: Wound Type: Abrasion FACE: Wound Type: Abrasion LEFT HIP: Wound Type: Surgical Incision upper lt hip: Wound Type: Surgical Incision Suggestions for Active Care Change Position every (hours): 2 Therapies Weight Bearing: Weight bearing as tolerated Extremity Affected:: Left Lower Physical Therapy: Eval and Treat Occupational Therapy: Eval and Treat Speech Therapy: Eval and Treat Problem/Diagnosis (1) Pleural effusion: Status: Acute Code(s): J90 - Pleural effusion, not elsewhere classified Allergies/Procedures Done in Hospital Allergies codeine Allergy (Verified 08/05/22 17:54) Itching naproxen Adverse Reaction (Verified 08/05/22 17:54) Other makes me jittery Procedures: Thoracentesis and - (Chest x-ray/CT chest/CT left lower extremity/MRI brain/CTA head neck/bony osseous survey) Type of Care/Length of Stay Estimated LOS: Convalescent Care Less Than 30 days Type of Care Needed: Skilled Rehab Potential: Good Prognosis: Fair Additional Orders/Day of Discharge Additional Orders: We will need to utilize incentive spirometry and Acapella aggressively to prevent pneumonia with rib fractures Patient needs outpatient follow-up with Dr. Theodore's office which will need to be set up after discharge Patient needs an MRI of her brain, cervical, thoracic, lumbar spine per oncology's request and will need mild sedation with Ativan prior to performing these tests--> we were unable to get this done prior to discharge due to volume and they were not essential to be performed prior to discharge--> these all will need to be done with and without contrast Day of Discharge: 08/16/22 Dietary and Speech Recommendations Dietitian Recommendations/Changes: Continue 1800 CCD diet to manage blood sugars. Will add Cardiac diet once PO intakes improve. RD will increase 120mL Glucerna supplement to 4x daily to provide supplemental energy. Discharge Plan Admission Admit Date/Time: 08/05/22 20:29 Attending Provider: Tamiko Quigley Primary Care Provider: Rupal Boyer Consulting Providers: Home Valverde; Chencho Short; Home Miller; Filemon Coffman; Atul Quezada; Dann Linn; Floyd Kelley; Cindy Wyatt NP; Prem Toro Instructions Patient Instructions: PETE RN Thoracentesis Dc Discharge Orders/Prescriptions Prescriptions: No Action fexofenadine 180 mg tablet 180 mg PO DAILY fluoxetine 40 MG capsule 40 mg PO BID alendronate 70 MG tablet 70 mg PO SA Rx Instructions: unknown simvastatin 40 MG tablet 40 mg PO DAILY buspirone 7.5 MG tablet 15 mg PO BID oxybutynin chloride 5 MG tablet 10 mg PO DAILY glipizide 5 MG tablet 10 mg PO DAILY omeprazole 20 MG tablet,delayed release (DR/EC) 20 mg PO DAILY ergocalciferol (vitamin D2) 50,000 UNIT capsule 50,000 unit PO SA meloxicam 7.5 MG tablet 7.5 mg PO DAILY Qty: 30 0RF lisinopril 20 MG tablet 20 mg PO DAILY Qty: 30 0RF carvedilol 3.125 mg tablet 3.125 mg PO BID Qty: 90 3RF Rx Instructions: heart/ blood pressure Referrals / Follow Up: Rupal Boyer NP-C [Primary Care Provider] -
--- NOTE | 2022-08-16 15:13 | PCM.DC.SUM ---
Providers Date of Admission: 08/05/22 Date of Discharge: 08/16/22 Primary Care Physician: ORESTES Cano Consultations 08/14/22 13:25 Consult: Oncology/Hematology Routine Consulting Provider: Home Miller Reason for Consult: Metastatic dz of unknown primary EMERGENT Consult: No Notified: Yes Date Notified: 08/14/22 Time Notified: 13:25 Method of Notification: paged via service unit operator 08/15/22 07:08 Consult: Job Specification Writer / Pulmonary Medicine Routine Consulting Provider: Pulmonary Medicine [facility] Reason for Consult: Empyema EMERGENT Consult: No MD Notified: Yes Date Notified: 08/15/22 Time Notified: 07:08 Method of Notification: Text 08/15/22 07:14 Consult: Infectious Disease Routine Consulting Provider: Prem Toro Reason for Consult: empyema EMERGENT Consult: No Notified: Yes Date Notified: 08/15/22 Time Notified: 07:14 Method of Notification: Answering Service Reason For Visit: NONDISPLACED INTERTRACHANTERTIC FX OF LEFT FEMUR Diagnosis Discharge Diagnosis (1) Pleural effusion: Status: Acute Code(s): J90 - Pleural effusion, not elsewhere classified Medications at Discharge Home Medications alendronate 70 mg tablet 70 mg PO SA osteoporosis 01/06/18 buspirone 7.5 mg tablet 15 mg PO BID anxiety 01/06/18 fluoxetine 40 mg capsule 40 mg PO BID anxiety 01/06/18 glipizide 5 mg tablet 10 mg PO DAILY antidiabetic 01/06/18 omeprazole 20 mg tablet,delayed release 20 mg PO DAILY GERD 01/06/18 oxybutynin chloride 5 mg tablet 10 mg PO DAILY 01/06/18 simvastatin 40 mg tablet 40 mg PO DAILY Cholesterole 01/06/18 carvedilol 3.125 mg tablet 3.125 mg PO BID #90 tabs 07/10/18 ergocalciferol (vitamin D2) 1,250 mcg (50,000 unit) capsule 50,000 unit PO SA supplement 02/12/19 lisinopril 20 mg tablet 20 mg PO DAILY #30 tabs 02/15/19 fexofenadine 180 mg tablet 180 mg PO DAILY 07/06/22 celecoxib 200 mg capsule 200 mg PO BREAKFAST #0 caps 08/16/22 enoxaparin 40 mg/0.4 mL subcutaneous syringe 40 mg (0.4 mL) subcut DAILY #4 mL 08/16/22 metronidazole 500 mg tablet 500 mg PO TID #0 tabs 08/16/22 nutrition tx glu intol,lac-free,soy-fiber 0.06 gram-1.2 kcal/mL liquid (Glucerna 1.2 Broderick) 120 ml PO 4X/DAY #0 mL 08/16/22 nystatin 100,000 unit/gram topical powder (Nyamyc) 1 applic topical BID #0 grams 08/16/22 tramadol 50 mg tablet 50 mg PO Q6H PRN PRN Pain Score 6-10 #30 tabs 08/16/22 Hospital Course Operations - (CMN left hip) Procedures Thoracentesis and - (CT brain/CT cervical spine/hip and pelvic x-rays/CTA head and neck/MRI brain/CT left lower extremity/CT chest/CT abdomen pelvis/bony osseous survey/chest x-ray) Summary of Care Provided Minutes Spent on Discharge: 43 Hospital Course: Mrs. Benavidez is a 66-year-old white female who presented to the emergency department at [facility] on 08/05/2022 after a fall related to her left foot drop that was mechanical in nature. She indicated she landed on her left side and had excruciating left lower extremity pain from her hip to her knee. Imaging revealed a left intertrochanteric fracture patient was taken to the OR on 08/06/2022 at which time a centimeter and was placed. The patient does have a known history of osteoporosis with previous vertebral compression fractures and kyphoplasty. She is on Fosamax and vitamin D supplementation at baseline. Stroke alert was called on 08/07/2022 as patient was having nonsensical conversation. Her hemoglobin dropped from 12.4-7.7 the day previous. Patient was evaluated by the stroke neurologist with initial NIH was 12. CT of the head was unremarkable. CTA of the head and neck showed no acute LVO and MRI was performed and showed no stroke. During her stay she had increasing confusion and her IV narcotics were changed to IV Toradol and some Nubain which she appeared to respond best to. Her mental status did return back to baseline per discussion with family and on the day of discharge she was alert and oriented x3 without any deficits. On the a.m. of 08/13/2022 her white count had trended up and a chest x-ray and a UA was performed UA was not consistent with infection however chest x-ray demonstrated what appeared to be a large left pleural effusion and therefore CT of her chest was performed. CT of her chest showed a small right pleural effusion and a large left pleural effusion. The patient was requiring supplemental oxygen at [address] also reported multiple osseous lytic lesions in the thoracic and lumbar spine as well as the ribs long with rib fractures that appear to be pathologic. Interestingly, CT of her head that was performed prior to surgery did not show any lytic lesions there. A CT of her abdomen pelvis with IV and p.o. contrast was performed and no significant abnormalities were noted. CEA, CA 19-9, and CA125 were ordered and oncology was consulted.Dr. Miller evaluated the patient and felt that all her fractures were due to osteoporosis and recommended waiting pathology on the fluid. Culture on the fluid grew out Prevotella and pulmonary medicine and infectious disease were consulted. It was felt due to the cell counts and glucose that this was not an empyema but probably a hematoma as well as a parapneumonic effusion. Infectious disease recommended continuing treatment of the Prevotella with oral metronidazole 500 mg 3 times a day for the next 10 days. We did repeat a chest x-ray the day following and 48 hours after her thoracentesis and she had no reaccumulation of fluid. With regards to the lytic lesions found on her axial and appendicular skeleton via a CT of the chest, I discussed further with family and they had no interest in seeing Dr. Miller again and reported a bad interaction with him the day prior. I discussed the case with Dr. Theodore and he recommended obtaining a skeletal survey, MRI of the brain, cervical spine, thoracic spine, lumbar spine with and without IV contrast as well as an SPEP, UPEP, and immunofixation. We were unable to get the MRIs performed due to time constraints with MRI scheduling and it was felt that this was predominantly outpatient work-up since clinically she was stable for discharge. Dr. Theodore was made aware and indicated these would be performed then as an outpatient. The patient want to need sedation for this. Recommendation to proceed with these was also placed in her discharge paperwork and may be scheduled by the physician covering the nursing facility if so desired. Her osseous survey was pending at the time of discharge. Per discussion with the patient and family there is a strong family history of breast cancer. Her sisters had bilateral mastectomies for 2 different primary cancers. The patient herself has never had a mammogram. I did discuss this as well with Dr. Theodore men he will follow-up as an outpatient for this as well. Patient was followed by occupational, speech, and physical therapy during her hospital stay. She was markedly debilitated and they recommended ongoing skilled services at the time of discharge. The patient was excepted for discharge and pre-CERT was obtained on 08/16/2022 and the patient was able to be discharged in medically stable condition on 2 L nasal cannula. Her oxygen may be weaned over time and I suspect this can be weaned quite look quickly. She will need to continue incentive spirometry and Acapella to prevent reoccurring pneumonia as she is high risk especially with her rib fractures. She did develop extensive hematoma on the left side and hemoglobin drop which required transfusion during her hospital stay. Hemoglobin had stabilized and DVT prophylaxis was reinitiated with Lovenox. This will need to be continued for 30 days postoperatively per orthopedic recommendations. Family will need to call and make a follow-up appointment with Dr. Theodore to be seen within the next week either at his office or one of his partners offices. She will need follow-up within the next 2 weeks to follow-up with orthopedic surgery. She will need follow-up with her primary care physician within the next month. Plan of care was extensively discussed with the patient and her daughter Joo who is her healthcare power of real estate attorney. Discharge diagnoses: Acute left intertrochanteric fracture Multiple lytic lesions on appendicular and axial skeleton Left-sided Prevotella parapneumonic effusion/hemothorax Hypoxia Acute blood loss anemia Leukocytosis DM-2 Hypertension Hyperlipidemia Osteoporosis CKD stage IIIb GERD Toxic/metabolic encephalopathy-resolved Depression Anxiety Urinary incontinence Physical Exam Const alert, oriented x3, no apparent distress, average body habitus, healthy appearing and well nourished Constitutional Narrative: Upper middle-aged, obese, white female, lying in bed, sister and daughter, patient appears comfortable nontoxic, interacts appropriately and mental status is good General Appearance: cooperative, comfortable, well kempt and well developed Orientation / Consciousness: awake, oriented to person, oriented to place and oriented to time Exam Limitations: no limitations Nutritional Appearance: obese HEENT normocephalic, head/scalp atraumatic, hearing grossly normal bilaterally and moist oral mucous membranes HEENT Narrative: Edentulous, Mallampati 3, no thrush Eyes PERRL and EOMs intact bilaterally Eyes Narrative: Conjunctiva are mildly pale bilaterally, no scleral icterus Neck no lymphadenopathy, supple, no JVD, thyroid normal and no carotid bruits Neck Narrative: Trachea midline, neck is in for, no thyroid enlargement Resp normal respiratory effort, no retractions, no use of accessory muscles and clear to auscultation bilaterally Resp Narrative: Good aeration bilateral bases with much improved aeration on the right Auscultation: Negative for rales, rhonchi or wheezes Cardio regular rate, regular rhythm, S1 normal heart sound, S2 normal heart sound, no murmurs, no rub, no gallops and no clicks GI normal to inspection, nondistended, normoactive bowel sounds, soft to palpation, non-tender and non-distended Extremity no clubbing, cyanosis or edema Extremity Narrative: Significant ecchymosis at the left lateral leg down the posterior lateral aspect of her left thigh to about the knee area, Skin no rashes or lesions noted, skin turgor normal, no jaundice, no petechiae and no mottling Skin Narrative: Changes as noted above, patient also with ecchymosis up in the lower lateral left trunk area and left neck General Skin Exam: no breakdown Neuro oriented x3, CN's II-XII intact bilaterally, moves all extremities and no focal motor deficits Neuro Narrative: Able to move all extremities however decreased movement left lower extremity secondary to pain Sensorium / Orientation: awake, alert, oriented to person, oriented to place and oriented to time Speech: speech normal Psych affect normal Psych Narrative: Appropriately interactive, appears comfortable, eye contact is good Weight / BMI Weight Weight: 79.6 kg Body Mass Index (BMI) 30.1 ABG / Lab / Microbiology Data 08/16/22 05:15 08/16/22 05:15 Laboratory: Laboratory Results - last 24 hr 08/15/22 16:52: POC Glucose 200 H 08/15/22 22:21: POC Glucose 187 H 08/16/22 05:15: WBC 11.4 H, RBC 2.76 L, Hgb 8.4 L, Hct 26.0 L, MCV 94.2, MCH 30.4, MCHC 32.3, RDW Std Deviation 55.5 H, RDW Coeff of Gerhard 17.2 H, Plt Count 312, MPV 9.5, Immature Gran % (Auto) 1.200 H, Neut % (Auto) 69.7, Lymph % (Auto) 19.3, Creek % (Auto) 7.9, Eos % (Auto) 1.8, Baso % (Auto) 0.1, Absolute Neuts (auto) 8.0 H, Absolute Lymphs (auto) 2.20, Nucleated RBC % 0, Sodium 138, Potassium 3.3 L, Chloride 98, Carbon Dioxide 35.0 H, Anion Gap 5, BUN 20 H, Creatinine 0.87, Estim Creat Clear Calc 53.44, Est GFR (MDRD) Af Amer 83, Est GFR (MDRD) Non-Af 69, BUN/Creatinine Ratio 23.1 H, Glucose 165 H, Calcium 8.2 L 08/16/22 06:17: POC Glucose 162 H 08/16/22 12:30: POC Glucose 187 H Microbiology: Microbiology 08/14/22 14:25 Fluid - Pleural (Lung) Gram Stain - Final 08/14/22 14:25 Fluid - Pleural (Lung) Body Fluid Culture - Preliminary No growth-Final to follow 08/14/22 14:25 Fluid - Pleural (Lung) Anaerobic Culture - Final Prevotella bivia 08/07/22 06:25 Blood Culture (Wb) - Right Wrist Blood Culture - Final No growth in 5 days. 08/07/22 06:20 Blood Culture (Wb) - Anticubital Right Blood Culture - Final No growth in 5 days. 08/07/22 08:45 Urine, Random Urine Culture - Final Culture exhibits no growth. Radiography Diagnostic Testing: Radiology Impression Chest X-Ray 08/16/22 07:19 IMPRESSION: Interval resolution of pulmonary vascular congestion. Stable minimal left pleural effusion. No definite right pleural effusion is identified. Mild improvement of discoid atelectasis within the right mid to lower lung. Stable infiltrates within the left lower lung. Electronically Signed: Luis Rider MD at 7:54 EDT , Meaningful Use Info Meaningful Use Diagnoses (Choose all that apply): None applicable Discharge Plan Admission Admit Date/Time: 08/05/22 20:29 Primary Reason for Your Visit: Fall/left hip pain Attending Provider: Tamiko Quigley Primary Care Provider: Rupal Boyer Consulting Providers: Home Valverde; Chencho Short; Home Miller; Filemon Coffman; Atul Quezada; Dann Linn; Floyd Kelley; Cindy Wyatt NP; Prem Toro Instructions Patient Instructions: PETE RN Thoracentesis Dc Additional Instructions / Restrictions: 1. Please call Dr. Theodore's office to set up an appointment to be seen within the next 1 to 2 weeks--> tell them the hospitalist discussed the case with him prior to discharge 2. You will need an MRI of your brain, cervical spine, thoracic spine, and lumbar spine with and without contrast as an outpatient for further work-up for possible cancer diagnosis 3. You will also likely need a mammogram 4. Please use the incentive spirometer and the Acapella device given to you in the hospital for your breathing 10 times every 2 hours while awake to prevent development of further pneumonia Discharge Orders/Prescriptions Prescriptions: New celecoxib 200 mg Capsule 200 mg PO BREAKFAST Qty: 0 0RF metronidazole 500 mg Tablet 500 mg PO TID Qty: 0 0RF Rx Instructions: Will need to complete 10 days tramadol 50 mg Tablet 50 mg PO Q6H PRN PRN (Reason: Pain Score 6-10) Qty: 30 0RF enoxaparin 40 mg/0.4 mL Syringe 40 mg subcut DAILY Qty: 4 0RF Rx Instructions: Please use 30 days after post op nystatin [Nyamyc] 100,000 unit/gram Powder 1 applic topical BID Qty: 0 0RF Protocol: *Topical Application Instructions APPLICATION INSTRUCTIONS: ABD FOLDS Glucerna 1.2 Broderick 0.06-1.2 gram-kcal/mL Liquid 120 ml PO 4X/DAY Qty: 0 0RF Continued fexofenadine 180 mg tablet 180 mg PO DAILY fluoxetine 40 MG capsule 40 mg PO BID alendronate 70 MG tablet 70 mg PO SA Rx Instructions: unknown simvastatin 40 MG tablet 40 mg PO DAILY buspirone 7.5 MG tablet 15 mg PO BID oxybutynin chloride 5 MG tablet 10 mg PO DAILY glipizide 5 MG tablet 10 mg PO DAILY omeprazole 20 MG tablet,delayed release (DR/EC) 20 mg PO DAILY ergocalciferol (vitamin D2) 50,000 UNIT capsule 50,000 unit PO SA lisinopril 20 MG tablet 20 mg PO DAILY Qty: 30 0RF carvedilol 3.125 mg tablet 3.125 mg PO BID Qty: 90 3RF Rx Instructions: heart/ blood pressure Discontinued meloxicam 7.5 MG tablet 7.5 mg PO DAILY Qty: 30 0RF Referrals / Follow Up: Dereck Ramirez DO [Med Staff - Active Staff] - Within 2 Weeks (Postoperative follow-up) Dean Theodore DO [Med Staff - Active Staff] - Within 1 Week (Call on 08/17/2022 to make an appointment to be seen as soon as possible and tell them that the hospital doctor discussed the case with Dr. Theodore) Rupal Boyer, [employer] PREPARATION WORKER-C [Primary Care Provider] - Within 1 Month Disposition Disposition (needs filled in before D/C Order can be placed): [facility] Facility Charges/Coding Visit Charges Inpatient E&M: 49999 SNF Disch >30 Min
--- NOTE | 2022-08-16 16:07 | CASEMGMT ---
Discharge Planning Discharge orders and signed med list [facility] [place] [facility] Patient, her family, and nursing was notified. Physicians will transport patient to [place] via cot at 5:30p. Anum Soler, Discharge Planning Asst.
[2022-08-16 16:14] VITALS: BP 134/62; PULSE 87; RESP 18; TEMP 36.8; O2SAT 96
--- NOTE | 2022-08-16 16:33 | NURSING ---
Report called to nurse Ford for pt to be dc to [facility].
[2022-08-16 17:59] LABS: Bedside Glucose 144 mg/dL (74-106)
[2022-08-17 04:07] LABS: Cancer Antigen 125 15.4 U/mL (0.0-38.1); Carbohydrate AG 19-9 < 2 U/mL (0-35)
[2022-08-17 14:08] LABS: Albumin 2.6 g/dL (2.9-4.4); Alpha-1-Globulins 0.4 g/dL (0.0-0.4); Alpha-2-Globulins 0.7 g/dL (0.4-1.0); Gamma Globulin 0.8 g/dL (0.4-1.8); Immunoglobulin A 303 mg/dL (87-352); Immunoglobulin G 770 mg/dL (586-1602); Immunoglobulin M 75 mg/dL (26-217); PROEL- TOTAL PROTEIN 5.2 g/dL (6.0-8.5)
[2022-08-18 09:46] LABS: Pathologist Comment/Body Fluid Reviewed
== END 2022-08-16 17:57 | disposition skilled nursing facility (03) | DRG 480 ==
LOC: ED 20:55 → MS3 21:02 → PCU 08-07 06:00
PROVIDERS: Family Medicine; Internal Medicine; Physician Assistant; Student in an Organized Health Care Education/Training Program; Admitting Provider Hospitalist; Emergency Provider Emergency Medicine; PCP Nurse Practitioner Family; Referring Provider Hospitalist; Visit Provider Internal Medicine
PROC: 0QS736Z Reposition Left Upper Femur with Intramedullary Internal Fixation Device, Percutaneous Approach (ICD-10-PCS; CPT 27245; principal; 2022-08-06 07:30)
DX: M80.052A Age-related osteoporosis with current pathological fracture, left femur, initial encounter for fracture (principal); S27.1XXA Traumatic hemothorax, initial encounter; G92.8 Other toxic encephalopathy; I31.39 Other pericardial effusion (noninflammatory); D62 Acute posthemorrhagic anemia; N17.9 Acute kidney failure, unspecified; I13.0 Hypertensive heart and chronic kidney disease with heart failure and stage 1 through stage 4 chronic kidney disease, or unspecified chronic kidney disease; F05 Delirium due to known physiological condition; J91.8 Pleural effusion in other conditions classified elsewhere; M96.841 Postprocedural hematoma of a musculoskeletal structure following other procedure; E11.22 Type 2 diabetes mellitus with diabetic chronic kidney disease; B96.89 Other specified bacterial agents as the cause of diseases classified elsewhere; I50.9 Heart failure, unspecified; E11.9 Type 2 diabetes mellitus without complications; F31.9 Bipolar disorder, unspecified; N18.32 Chronic kidney disease, stage 3b; S09.90XA Unspecified injury of head, initial encounter; S50.312A Abrasion of left elbow, initial encounter; S80.212A Abrasion, left knee, initial encounter; N18.9 Chronic kidney disease, unspecified; I25.10 Atherosclerotic heart disease of native coronary artery without angina pectoris; I12.9 Hypertensive chronic kidney disease with stage 1 through stage 4 chronic kidney disease, or unspecified chronic kidney disease; K21.9 Gastro-esophageal reflux disease without esophagitis; E78.00 Pure hypercholesterolemia, unspecified; F41.9 Anxiety disorder, unspecified; W01.0XXA Fall on same level from slipping, tripping and stumbling without subsequent striking against object, initial encounter; M21.372 Foot drop, left foot; M80.0AXA Age-related osteoporosis with current pathological fracture, other site, initial encounter for fracture; R32 Unspecified urinary incontinence; G89.4 Chronic pain syndrome; Y83.8 Other surgical procedures as the cause of abnormal reaction of the patient, or of later complication, without mention of misadventure at the time of the procedure; Y92.239 Unspecified place in hospital as the place of occurrence of the external cause; Z79.83 Long term (current) use of bisphosphonates; T40.605A Adverse effect of unspecified narcotics, initial encounter; T48.1X5A Adverse effect of skeletal muscle relaxants [neuromuscular blocking agents], initial encounter; R09.02 Hypoxemia; Z79.84 Long term (current) use of oral 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 drugs; Z87.891 Personal history of nicotine dependence; Z79.899 Other long term (current) drug therapy; M89.9 Disorder of bone, unspecified
CPT/HCPCS: 32555; 36415; 36600; 70450; 70496; 70498; 70551; 71045; 71046; 71101; 71250; 72125; 73501; 73502; 73700; 74177; 76000; 77075; 80048; 80053; 80061; 80076; 81001; 82140; 82306; 82378; 82784; 82803; 82945; 82962; 83605; 83615; 83735; 84075; 84100; 84156; 84157; 84165; 84484; 85014; 85018; 85025; 85610; 85730; 86301; 86304; 86334; 86850; 86900; 86901; 86920; 86922; 87040; 87070; 87075; 87077; 87086; 87205; 88108; 88305; 88313; 88341; 88342; 89050; 92523; 92526; 92610; 93005; 94640; 94668; 94762; 97110; 97116; 97162; 97166; 97530; 97535; 99285; C1713; J7030; J7040; J7120; P9016; Q9967; A4216; J0295; J1940; J2405

== ENCOUNTER 2022-09-18 08:05 | Outpatient (CLI) | payer MEDICARE, MEDICAID, SELFPAY ==
[2022-09-18] VITALS (10 sets, daily range): BP systolic 107–153; BP diastolic 41–78; PULSE 85–96; RESP 15–25; TEMP 36.8; O2SAT 93–100; BMI 26.4
--- NOTE | 2022-09-18 | BMB_PTH ---
PATIENT: LUBA MARSH LOC: CT U#:[id number] AGE/SX: 66/F ROOM: RE09/18/[address]: Dr. Dean Theodore DO : 1955 BED: DIS: 09/18/2022 SPEC #: [id number] RECD: 09/18/22 11:31 STATUS: TRICIA REPeter #: [id number] DANIKA: 09/18/22 00:[address]: Dean Theodore DEPT: BONE MARROW RECD BY: Marcy Monique ENTERED: 09/18/22 11:31 SP TYPE: BMB OTHR DR: Rupal Boyer, CRISTOPHER-Madelyn Tissues: A - Bone marrow, NOS B - Bone marrow, NOS C - Bone marrow, NOS Procedures: Decalcification bone/plaque Bone Marrow Aspiration Bone Marrow Core Biopsy Iron Stain Bone Marrow HEADER OPERATION: CT-guided bone marrow biopsy and aspiration PRE-OP DIAGNOSIS: Right iliac bone mass TISSUE SUBMITTED: A - Core, B - Clot, C - Smears, and send outs (flow & cytogenetics) BONE MARROW DIAGNOSIS Bone marrow biopsy, clot and aspiration: Markedly decreased CD4/CD8 ratio. Relatively increased CD4, CD8 T cell population. Polytypic lymphoid aggregates. Increased stainable iron (2/4) without ring sideroblasts. See comment. AM:phillip 09/28/2022 COMMENT A & B. Immunohistochemistry ([id number]) supports the above diagnosis. This case is reviewed in consultation with Dr. Avila of [place] and immuno-deficiency immunophenotyping profile is recommended if quantitative lymphocyte subset analysis is clinically indicated. The clot section contains several small lymphoid aggregates that are polytypic on immunohistochemical analysis. There is no evidence of B-cell lymphoma. Clinical correlation is suggested. The complete flow report is viewable in EMR. Case has been reviewed in consultation with Dr. Dowd who concurs with the above diagnosis. IDC:SJ BONE MARROW STUDY Slides are reviewed. CBC DATE: 09/18/22 WBC 9.2; RBC 3.85; HGB 11.7; HCT 36.4; MCV 94.5; RDW 50.8; PLTS 391,000 PERIPHERAL SMEAR: Submitted. RBC: Normocytic anemia WBC: Reactive lymphocytes noted. PLTS: Normomorphic BONE MARROW ASPIRATE DIFFERENTIAL: 200 cell count. Blasts % (normal 0-2): 2 Promyelocytes % (normal 1-5): 4 Myelocytes and metamyelocytes % (normal 17-41): 30 Bands and Segs % (normal 15-32): 15 Eos % (normal 1-6): 2 Monocytes % (normal 0-4): 2 Erythroid Precursors % (normal 17-35): 28 Lymphocytes % (normal 7-13): 15 Plasma Cells % (normal 0-2): 2 ASPIRATE FINDINGS: Site: Right hip Spicular Cellular M/E ratio: 1.89 (Normal 1.5 - 4.0) Megakaryocytes: Normomorphic Erythropoiesis: Normoblastic Granulopoiesis: Progressive maturation Other findings: Increased small lymphocytes adjacent to spicules. CORE BIOPSY FINDINGS: Site: right hip Adequacy: Not applicable Cellularity %: Not applicable Comment: Only fibrinoid material with cellular elements present. ASPIRATE CLOT FINDINGS: Site: Right hip Cellularity %: 10-15% M/E ratio: Within normal limits. Megakaryocytes: Adequate Granuloma(s): 0 Lymphoid aggregate(s): Present. Polytypic by IHC. Atypical infiltrate(s): See above. SPECIAL STAINS (with matched controls): Iron: Increased (2/4) without ring sideroblasts. Reticulin: Within normal limits. PAS: Highlights myeloid elements and megakaryocytes. BONE MARROW GROSS A - Received is a container labeled with the patient's name and designated right iliac bone. The specimen consists of a scant fragment of blood clot measuring in aggregate 0.5 x 0.1 x <0.1 cm. The specimen is totally submitted in one cassette after decalcification. B - Received labeled with the patient's name and designated right iliac bone is a specimen that consists of approximately 2 ml of bloody fluid that on filtration yields multiple fragments of blood clots measuring in aggregate 2.0 x 1.5 x 0.1 cm. The specimen is totally submitted in one cassette. C - Also received are 10 unstained and 1 peripheral stained slides. The unstained slides are submitted for appropriate staining. Also received is one green top tube which is sent to our reference lab for flow and cytogenetics. / HARDIK:phillip 09/18/2022 TC:5 CPT: 36315, 72251, 88034 x2, 05784 x1, 43785 ADDENDUM ADDENDUM ADDENDUM ADDENDUM ADDENDUM ADDENDUM ADDENDUM ADDENDUM 09/29/2022 09:52 ADDENDUM 09/29/2022 09:52 ADDENDUM 09/29/2022 09:52 ADDENDUM 09/29/2022 09:52 ADDENDUM 09/29/2022 09:52 CYTOGENETICS REPORT FROM [facility] CYTOGENETIC RESULT: [id number],XX[20] INTERPRETATION: Normal female karyotype was observed in twenty metaphases analyzed. Please see complete report in e-chart or EMR
--- NOTE | 2022-09-18 | IMM_PTH ---
PATIENT: LUBA MARSH LOC: CT U#:[id number] AGE/SX: 66/F ROOM: RE09/18/[address]: Dr. Dean Theodore DO : 1955 BED: DIS: 09/18/2022 SPEC #: [id number] RECD: 09/19/22 13:58 STATUS: SOURob REQ #: [id number] DANIKA: 09/18/22 00:[address]: Dean Theodore DEPT: IMMUNOHISTOCHEMISTRY RECD BY: Celia Carlin ENTERED: 09/19/22 14:05 SP TYPE: IMMUNO OTHR DR: Rupal Boyer, RUG BACKING STENCILER-C Tissues: A - Bone marrow of iliac crest B - Bone marrow of iliac crest Procedures: BCL-2 (add) BCL-6 (add) CD10 (add) CD138 (add) CD15 (add) CD20 (add) CD23 (add) CD30 (add) CD43 (add) CD45 (add) CD5 (add) CD79A (add) CYCLIN (add) KAPPA (add) KI-67 (add) LAMBDA (add) P53 (add) MUM1 (add) C-MYC (add) Pankeratin (add) CD3 (initial) PHYSICIAN & INSTITUTION [place] [id number] SPECIMEN INFORMATION: Tissue Source: A - Bone marrow core, B - Bone marrow clot Clinical Info: Right iliac bone mass Specimen Number: [id number] & B CPT code: 68506 x2, 07317 x27 METHODOLOGY: Deparaffinized sections of prefer/formalin-fixed tissue or PAP/DQ stained slides are incubated with monoclonal/polyclonal antibodies/oligonucleotide probes. Localization is made via biotin free immunoperoxidase method. Appropriate controls are performed and reacted as expected. Results on target cell population are indicated in the following table: RESULTS: ANTIBODY / CLONE RESULT Block A AE1-3 (AE1/AE3/PCK26) negative CD3 (PS1) positive CD5 (SP10) positive CD10 (56C6) negative CD15 (MMA) negative CD20 (L26) positive CD23 (1B12) negative CD30 (Nadrzej-H2) negative CD43 (L60) positive CD45 (RP2/18) positive CD79a (11E3) positive CD138 (B-A38) negative BCL-2 (bcl-2/100/D5) negative BCL-6 (GW447Y/A8) negative [place] D1/BCL-1 (SP4) negative MUM1 (MRQ-43) negative C-MYC (Y69) negative [place] (polyclonal) negative Lambda (polyclonal) negative P53 (DO-7) negative Ki-67 (30-9) negative Block B CD3 (PS1) positive CD5 (SP10) positive CD20 (L26) negative CD45 (RP2/18) positive CD79a (11E3) negative CD138 (B-A38) negative [place] (polyclonal) negative Lambda (polyclonal) negative These tests were developed and their performance characteristics determined by [facility]. They may not have been cleared or approved by the U.[place]. Food and Drug Administration. The FDA has determined that such clearance or approval is not necessary. The above immunohistochemical/dualISH markers are ordered and reviewed by the Pathologist. INTERPRETATION: A. Bone marrow core: No evidence of lymphoma. B. Bone marrow clot: Benign polytypic lymphoid aggregates present. AM:phillip 09/28/2022
--- NOTE | 2022-09-18 08:10 | CT_ITS ---
PROCEDURE: CT GUIDED bone marrow biopsy and bone marrow aspirate of the posterior right iliac bone DATE: September 18, 2022 INDICATION: Female, 66 years old. Multiple skeletal lytic lesions. PHYSICIAN: Christopher Jackson M.D. RADIATION DOSAGE (If Supplied By Facility): CTDIvol = ( 19 ) mGy, DLP = ( 446.38 ) mGycm. Individualized dose optimization techniques were utilized. PROCEDURE: The risks, benefits, and alternatives to the procedure were explained to the patient. The specific risk of hemorrhage requiring further treatment or intervention was detailed and accepted. Follow-up instructions were discussed with the patient as well. Written informed consent was obtained. The patient was brought into the CT suite and placed in the prone position.. . An appropriate entry site was identified. The overlying skin was prepped and draped in the usual sterile fashion. 1% lidocaine was administered subcutaneously for local anesthesia. Conscious sedation was performed. The patient received 2 mg of Versed. Conscious sedation was started at 9:34 AM and terminated at 1002. The patient was independently monitored by the department nurse. Under CT guidance, a bone marrow biopsy and bone marrow aspirates of the posterior right iliac bone were performed utilizing an 11-gauge bone marrow biopsy kit. The specimens were then placed in the appropriate fluid and transported to the laboratory for analysis. Hemostasis was obtained. The patient tolerated the procedure well without immediate complications. CT/Biopsy/Inj or Needle Placement IMPRESSION: Successful CT guided bone marrow biopsy and aspirate of the posterior right iliac bone, as described above. Conscious sedation protocol was followed. Electronically Signed: Christopher Jackson MD at 12:21 EDT ,
[2022-09-18 09:05] LABS: International Normalized Ratio 1.1
[2022-09-18 09:12] LABS: Partial Thromboplast Time 30.7 Seconds (24.1-36.2)
[2022-09-18] MEDS: Midazolam 2 MG/2 ML Syringe IV (09:34)
[2022-09-18] MEDS: Lidocaine 2% (20 ml mdv) 20 ML Vial INFILT (09:50)
[2022-09-18 10:27] LABS: Absolute Neutrophil Count 5.2 X10^3/uL (2.0-7.7); Basophil# 0.02 X10^3/uL; Basophil% 0.2 % (0-1); Eosinophil# 0.19 X10^3/uL; Eosinophils% 2.1 % (0-5); Hematocrit 36.4 % (37-47); Hemoglobin 11.7 g/dL (12.0-15.0); Lymphocyte % 34.7 % (19-41); Mean Corp Hgb Conc 32.1 g/dL (32-36); Mean Corpuscular Hgb 30.4 pg (27.0-32.0); Mean Corpuscular Volume 94.5 fL (81-99); Mean Platelet Vol. 9.4 fl (6.2-12.0); Monocyte# 0.63 X10^3/uL; Monocyte% 6.8 % (0-10); NRBC Flagged by Analyzer 0 % (0-5); Neutrophil # 5.17 X10^3/uL (2.7-7.7); Platelet Count 391 K/mm3 (150-450); RBC Distribution Width CV 14.6 % (11.6-14.6); RBC Distribution Width SD 50.8 fl (35.1-43.9); Red Blood Count 3.85 M/mm3 (4.2-5.4); White Blood Count 9.2 K/mm3 (4.4-11.0)
[2022-09-29 09:20] LABS: Miscellaneous Lab Procedure SEE PATH REPORT; Miscellaneous Lab Procedure 2 SEE PATH REPORT
== END 2022-09-18 23:59 | disposition home or self-care (01) ==
LOC: CT 08:08
PROVIDERS: Radiology Diagnostic Radiology; PCP Nurse Practitioner Family; Referring Provider Internal Medicine Hematology & Oncology; Visit Provider Internal Medicine Hematology & Oncology
DX: M89.9 Disorder of bone, unspecified (principal)
CPT/HCPCS: 38222; 77012; 85025; 85610; 85730; 88305; 88311; 88313; 88341; 88342; 99156; J7050; A4216

== ENCOUNTER 2022-12-23 14:13 | Emergency (ER) | payer MEDICARE, MEDICAID, SELFPAY ==
[2022-12-23] VITALS (23 sets, daily range): BP systolic 63–160; BP diastolic 39–90; PULSE 111–126; RESP 17–22; TEMP 36–36.8; O2SAT 85–99; BMI 28.8
--- NOTE | 2022-12-23 14:51 | EKG12_ITS ---
Test Reason : Blood Pressure : / mmHG Vent. Rate : 120 BPM Atrial Rate : 120 BPM P-R Int : 150 ms QRS Dur : 088 ms QT Int : 344 ms P-R-T Axes : 068 -42 052 degrees QTc Int : 486 ms Sinus tachycardia Left axis deviation Inferior infarct , age undetermined Abnormal ECG Confirmed by TERRI WRIGHT, KATARINA ([id number]), purchasing expeditor WILFRID SÁNCHEZ ([id number]) on 01/03/2023 9:54:35 AM Referred By: Confirmed By:KATARINA MURRAY MD
--- NOTE | 2022-12-23 14:51 | CT_ITS ---
HISTORY: trauma. TECHNIQUE: Multiple axial images were obtained of the head without intravenous contrast. A radiation dose optimization technique was used for this scan. 242 images. COMPARISON: 08/07/2022. FINDINGS: BRAIN PARENCHYMA: Multiple foci and zones of low attenuation in the bilateral cerebral white matter compatible with chronic small vessel ischemic gliosis. No acute intra-axial hemorrhage identified. CSF SPACES: Generalized volume loss. No midline shift or other significant mass effect. No acute extra-axial hemorrhage seen. Small calcified left frontal meningioma or ossification of the frontal bone inner table again seen. OTHER: Hyperostosis frontalis interna. No significant air fluid levels in the paranasal sinuses or mastoid air cells. Bilateral lens resections. CT/Brain/Head without Contrast IMPRESSION: No acute intracranial process identified. Mild chronic involutional and white matter changes. Electronically Signed: Britt Peralta MD at 15:39 EST ,
--- NOTE | 2022-12-23 14:53 | RAD_ITS ---
HISTORY: injury. TECHNIQUE: XR Hip Unilateral with Pelvis when performed; 2-3 Views. COMPARISON: CT 08/14/2022. FINDINGS: OSSEOUS STRUCTURES: Acute comminuted intertrochanteric fracture of the right femur with mild varus angulation and displacement. Nondisplaced fracture of the right superior pubic ramus near the acetabulum. Chronic superior and inferior pubic rami fractures more medially Note that overlapping bowel shadows may obscure osseous detail. Mild osteopenia. Mild cortical irregularity of the left superior pubic ramus. L5 vertebroplasty with chronic compression fracture JOINT SPACES: No dislocation. Mild degenerative change of the hip. Left hip arthroplasty place with heterotopic ossification SOFT TISSUES: Peripheral vascular disease present. RAD/HIP, UNI W/ Pelvis 2-3 Views IMPRESSION: Acute comminuted intertrochanteric fracture of the right femur. Suspect additional acute nondisplaced fractures of the right and left superior pubic rami. Chronic right superior and inferior pubic rami fractures more medially. Electronically Signed: Britt Peralta MD at 15:52 EST ,
--- NOTE | 2022-12-23 14:56 | ED.VIS.FALL ---
HPI HPI - Fall History of Present Illness Chief Complaint: Fall Informant: patient Occured/Mechanism Occurred: Today Narrative Narrative: Patient presents after fall. She was trying to get in the scooter at [facility] when she lost her balance and fell. She did have an abrasion to the back of her head that family states blood just a little bit. She reportedly sat up after the fall and had a brief syncopal episode. Patient complains of right hip pain. Her leg is externally rotated and shortened. On arrival to the emergency room patient is hypotensive with a pressure 78/48 heart rate of 125. At the time of my eval she is responding to IV fluids. She is awake and answering questions appropriately. [facility] Medical History Anxiety Atrial fibrillation Back pain due to injury Bipolar disorder Closed intertrochanteric fracture of left hip Dementia Depression Essential (primary) hypertension Former smoker GERD (gastroesophageal reflux disease) Hearing loss, right Hiatal hernia High cholesterol Hyperlipidemia Injury of head and neck Irritable bowel Migraines Nonobstructive atherosclerosis of coronary artery NSTEMI (non-ST elevated myocardial infarction) (01/06/18) Obesity Psoriatic arthritis Restless legs Sleep apnea Takotsubo syndrome Type 2 diabetes mellitus Home Medications alendronate 70 mg tablet 70 mg PO SA osteoporosis 01/06/18 [History Last Taken Unknown] buspirone 7.5 mg tablet 15 mg PO BID anxiety 01/06/18 [History Last Taken Unknown] fluoxetine 40 mg capsule 40 mg PO BID anxiety 01/06/18 [History Last Taken Unknown] glipizide 5 mg tablet 10 mg PO DAILY antidiabetic 01/06/18 [History Last Taken Unknown] omeprazole 20 mg tablet,delayed release 20 mg PO DAILY GERD 01/06/18 [History Last Taken Unknown] oxybutynin chloride 5 mg tablet 10 mg PO DAILY 01/06/18 [History Last Taken Unknown] carvedilol 3.125 mg tablet 3.125 mg PO BID #90 tabs 07/10/18 [Rx Last Taken Unknown] ergocalciferol (vitamin D2) 1,250 mcg (50,000 unit) capsule 50,000 unit PO SA supplement 02/12/19 [History Last Taken Unknown] lisinopril 20 mg tablet 20 mg PO DAILY #30 tabs 02/15/19 [Rx Last Taken Unknown] fexofenadine 180 mg tablet 180 mg PO DAILY 07/06/22 [History Last Taken Unknown] celecoxib 200 mg capsule 200 mg PO BREAKFAST #0 caps 08/16/22 [Rx Last Taken Unknown] tramadol 50 mg tablet 50 mg PO Q6H PRN PRN Pain Score 6-10 #30 tabs 08/16/22 [Rx Last Taken Unknown] atorvastatin 20 mg tablet 20 mg PO QHS 09/15/22 [History Last Taken Unknown] cyclobenzaprine 5 mg tablet 5 mg PO TID PRN muscle spasm 09/15/22 [History Last Taken Unknown] magnesium hydroxide 400 mg/5 mL oral suspension (Milk of Magnesia) 30 ml PO DAILY PRN constipation 09/15/22 [History Last Taken Unknown] menthol 4 % topical gel (Biofreeze (menthol)) 1 applic topical BID PRN pain 09/15/22 [History Last Taken Unknown] multivitamin with iron-mineral (Super Multiple tablet) 1 tab PO DAILY 09/15/22 [History Last Taken Unknown] polyethylene glycol 3350 17 gram/dose oral powder (Miralax) 17 g PO DAILY PRN constipation 09/15/22 [History Last Taken Unknown] Allergy/AdvReac Type Severity Reaction Status Date / Time morphine Allergy Mild confusion Verified 12/23/22 15:39 codeine Allergy Itching Verified 12/23/22 15:39 fentanyl AdvReac confusion Verified 12/23/22 15:39 naproxen AdvReac Other Verified 12/23/22 15:39 Family History Mother Cancer skin Father Cancer prostate Surgical History History of back surgery History of carpal tunnel release of both wrists History of hysterectomy History of left heart catheterization (01/07/18) Social History Smoking Status: Former smoker how long ago did patient quit smokin years ago alcohol intake: never substance use type: does not use caffeine: Yes Type: carbonated beverages Number of servings: 1 ROS ROS ED Constitutional Constitutional ED: Denies chills or fever(s) Eyes Eyes: Denies change in vision ENT ENT ED: Denies sore throat Cardiovascular Cardiovascular: Denies chest pain Respiratory/Chest Respiratory/Chest: Denies cough or dyspnea Gastrointestinal Gastrointestinal: Denies abdominal pain, nausea or vomiting Genitourinary Genitourinary ED: Denies dysuria Musculoskeletal Musculoskeletal: Reports extremity pain; Denies back pain Integumentary Reports Abrasions; Denies rash Neurologic Neurologic: Denies headache(s) or weakness Psychiatric Psychiatric: Denies anxiety or depression Allergic/Immunologic Allergic/Immunologic ED: Denies lip swelling or urticaria EXAM Physical Exam Const Vital Signs: 12/23/22 14:14 12/23/22 14:26 12/23/22 14:26 Temperature 98.3 F Temperature Source Oral Pulse Rate 125 H Respiratory Rate 18 Respiratory Effort Normal Respiratory Depth Normal Respiratory Pattern Normal Blood Pressure 78/48 L Blood Pressure Mean 58 Blood Pressure Source Blood Pressure Position Blood Pressure Location Pulse Ox 88 94 Oxygen Delivery Method Room Air Nasal Cannula Nasal Cannula Oxygen Flow Rate (L/min) 2 12/23/22 15:12 12/23/22 15:40 12/23/22 15:46 Temperature Temperature Source Pulse Rate 112 H 112 H 111 H Respiratory Rate 18 18 18 Respiratory Effort Respiratory Depth Respiratory Pattern Blood Pressure 139/65 H 121/74 H 121/74 H Blood Pressure Mean 89 89 89 Blood Pressure Source Blood Pressure Position Blood Pressure Location Pulse Ox 97 85 95 Oxygen Delivery Method Room Air Room Air Nasal Cannula Oxygen Flow Rate (L/min) 2 12/23/22 16:00 12/23/22 19:30 12/23/22 18:30 Temperature Temperature Source Pulse Rate 114 H 124 H 124 H Respiratory Rate 17 18 18 Respiratory Effort Respiratory Depth Respiratory Pattern Blood Pressure 90/63 105/71 113/55 L Blood Pressure Mean 72 82 74 Blood Pressure Source Blood Pressure Position Blood Pressure Location Pulse Ox 95 95 97 Oxygen Delivery Method Nasal Cannula Nasal Cannula Oxygen Flow Rate (L/min) 2 2 12/23/22 16:10 12/23/22 16:20 12/23/22 16:30 Temperature Temperature Source Pulse Rate 117 H 117 H 117 H Respiratory Rate 18 19 H 19 H Respiratory Effort Respiratory Depth Respiratory Pattern Blood Pressure 105/71 85/60 L 77/47 L Blood Pressure Mean 82 68 57 Blood Pressure Source Blood Pressure Position Blood Pressure Location Pulse Ox 97 96 93 Oxygen Delivery Method Nasal Cannula Nasal Cannula Nasal Cannula Oxygen Flow Rate (L/min) 2 2 2 12/23/22 16:40 12/23/22 16:46 12/23/22 17:00 Temperature Temperature Source Pulse Rate 116 H 117 H 111 H Respiratory Rate 17 18 Respiratory Effort Respiratory Depth Respiratory Pattern Blood Pressure 68/51 L 90/59 L 96/73 Blood Pressure Mean 56 69 80 Blood Pressure Source Blood Pressure Position Blood Pressure Location Pulse Ox 94 94 97 Oxygen Delivery Method Nasal Cannula Nasal Cannula Nasal Cannula Oxygen Flow Rate (L/min) 2 2 2 12/23/22 17:20 12/23/22 17:30 12/23/22 17:40 Temperature Temperature Source Pulse Rate 120 H 118 H 126 H Respiratory Rate 20 H 20 H 22 H Respiratory Effort Respiratory Depth Respiratory Pattern Blood Pressure 120/73 112/71 127/78 H Blood Pressure Mean 88 84 94 Blood Pressure Source Blood Pressure Position Blood Pressure Location Pulse Ox 97 97 94 Oxygen Delivery Method Nasal Cannula Nasal Cannula Nasal Cannula Oxygen Flow Rate (L/min) 2 2 2 12/23/22 17:50 12/23/22 18:00 12/23/22 18:10 Temperature Temperature Source Pulse Rate 123 H 120 H 120 H Respiratory Rate 19 H 18 18 Respiratory Effort Respiratory Depth Respiratory Pattern Blood Pressure 84/53 L 63/39 L 96/57 L Blood Pressure Mean 63 47 70 Blood Pressure Source Blood Pressure Position Blood Pressure Location Pulse Ox 97 97 96 Oxygen Delivery Method Nasal Cannula Nasal Cannula Nasal Cannula Oxygen Flow Rate (L/min) 2 2 2 12/23/22 18:54 12/23/22 19:04 12/23/22 19:15 Temperature 96.8 F L 96.8 F L Temperature Source Temporal Temporal Pulse Rate 121 H 122 H 125 H Respiratory Rate 19 H 18 20 H Respiratory Effort Respiratory Depth Respiratory Pattern Blood Pressure 117/55 L 160/90 H 108/62 Blood Pressure Mean 75 113 77 Blood Pressure Source Monitor Monitor Blood Pressure Position Supine Supine Blood Pressure Location Right Arm Right Arm Pulse Ox 99 98 97 Oxygen Delivery Method Room Air Nasal Cannula Nasal Cannula Oxygen Flow Rate (L/min) 2 2 Positive cachectic General Appearance ED: cachectic Nutritional Appearance: cachectic HEENT HEENT Narrative: 3 to 4 mm linear abrasion at the hairline. Patient states this is old and not related to today's fall. Eyes EOMs intact bilaterally Neck full ROM Chest Wall inspection of chest normal and palpation of chest normal Resp normal respiratory effort and clear to auscultation bilaterally Cardio regular rhythm Rate: tachycardic GI non-tender Palpation: soft Extremity Extremity Narrative: Right lower extremity externally rotated and shortened. Pain to the right hip with palpation. Neuro Neuro Narrative: Patient is alert and oriented and follows commands appropriately. Conversant and remembers all events of today. Psych mental status grossly normal MDM MDM MDM Narrative Medical decision making narrative: IV line established and IV fluids given. Placed on protective services officer. EKG obtained to evaluate for cardiac arrhythmia/ischemia. Labwork obtained to evaluate for leukocytosis, anemia, and electrolyte derangement. X-rays of the pelvis and right hip along with chest will be obtained to evaluate for fracture. CT scan of the head obtained given her fall. Patient does have a history of atrial fibrillation but is not on anticoagulation. History & Record Review Discussion w/independent historian: Patient and Family Additional record(s) reviewed:: Prior labs Lab Data Attestation: I reviewed the patient's lab results. Labs: Laboratory Results - last 24 hr 12/23/22 12/23/22 12/23/22 14:25 15:40 18:35 WBC 25.0 H RBC 4.56 Hgb 12.7 7.0 L Hct 42.8 23.8 L MCV 93.9 MCH 27.9 MCHC 29.7 L RDW Std Deviation 46.3 H RDW Coeff of Gerhard 13.4 Plt Count 384 MPV 9.9 Immature Gran % (Auto) 1.600 H Neut % (Auto) 70.7 H Lymph % (Auto) 21.4 [place] % (Auto) 4.1 Eos % (Auto) 1.8 Baso % (Auto) 0.4 Absolute Neuts (auto) 17.7 H Absolute Lymphs (auto) 5.36 H Nucleated RBC % 0 Differential Comment SCANNED PT Cancelled 15.9 H INR Cancelled 1.3 APTT Cancelled 30.4 Sodium 140 Potassium 3.9 Chloride 110 H Carbon Dioxide 23.0 Anion Gap 7 BUN 23 H Creatinine 1.05 H Estim Creat Clear Calc 43.67 Est GFR (MDRD) Af Amer 67 Est GFR (MDRD) Non-Af 55 L BUN/Creatinine Ratio 21.9 H Glucose 137 H Lactic Acid 1.7 Calcium 9.2 Troponin I High Sens 5 Urine Color Urine Clarity Urine pH Ur Specific [place] Urine Protein Urine Glucose (UA) Urine Ketones Urine Occult Blood Urine Nitrite Urine Bilirubin Urine Urobilinogen Ur Leukocyte Esterase Urine RBC Urine WBC Ur Squamous Epith Cells Urine Bacteria Urine Mucus 12/23/22 18:50 WBC RBC Hgb Hct MCV MCH MCHC RDW Std Deviation RDW Coeff of Gerhard Plt Count MPV Immature Gran % (Auto) Neut % (Auto) Lymph % (Auto) [place] % (Auto) Eos % (Auto) Baso % (Auto) Absolute Neuts (auto) Absolute Lymphs (auto) Nucleated RBC % Differential Comment PT INR APTT Sodium Potassium Chloride Carbon Dioxide Anion Gap BUN Creatinine Estim Creat Clear Calc Est GFR (MDRD) Af Amer Est GFR (MDRD) Non-Af BUN/Creatinine Ratio Glucose Lactic Acid Calcium Troponin I High Sens Urine Color Yellow Urine Clarity Sl. Cloudy Urine pH 5.0 Ur Specific [place] 1.015 Urine Protein 100 H Urine Glucose (UA) Normal Urine Ketones 5 H Urine Occult Blood 150 H Urine Nitrite Positive H Urine Bilirubin Negative Urine Urobilinogen Normal Ur Leukocyte Esterase 500 H Urine RBC 0 SEEN Urine WBC >100 SEEN Ur Squamous Epith Cells 0 SEEN Urine Bacteria 2+ Urine Mucus 0 SEEN Radiography Chest X-Ray - ED: 1 View, Read by ED Physician and - (Chronic changes with right hemidiaphragm elevation. No focal infiltrate.) Diagnostic Testing: Clinical Impression(s) from Imaging Studies Brain CT 12/23/22 14:51 IMPRESSION: No acute intracranial process identified. Mild chronic involutional and white matter changes. Electronically Signed: Britt Peralta MD at 15:39 EST Reading Location ID and State: [facility] / OR Tel , Service support , Hip/Pelvis X-Ray 12/23/22 14:53 IMPRESSION: Acute comminuted intertrochanteric fracture of the right femur. Suspect additional acute nondisplaced fractures of the right and left superior pubic rami. Chronic right superior and inferior pubic rami fractures more medially. Electronically Signed: Britt Peralta MD at 15:52 EST , Chest X-Ray 12/23/22 15:25 IMPRESSION: Chronic left basilar atelectasis or scarring. Electronically Signed: Britt Peralta MD at 15:47 EST , Cervical Spine CT 12/23/22 18:05 IMPRESSION: No acute findings in the cervical spine. Electronically Signed: Mckinley Gutierrez MD (Brooks) at 18:50 EST , Chest/Abdomen/Pelvis CTA 12/23/22 18:05 IMPRESSION: 1. Large left pelvic hematoma with active extravasation/bleeding. 2. Right superior and inferior rami fractures. Right IT femur fracture, new. 3. Chronic changes, as above. Electronically Signed: Mckinley Gutierrez MD (Brooks) at 19:00 EST , ADDENDUM: 12/23/22 1914 IMPRESSION: 1. Large left pelvic hematoma with active extravasation/bleeding. 2. Right superior and inferior rami fractures. Right IT femur fracture, new. 3. Chronic changes, as above. N.B. : Jen Olivares MD, confirmed on 12/23/2022 19:07:26 (ET) that the referring physician received the results and does not require a verbal communication. Electronically Signed: Mckinley Gutierrez MD (Brooks) at 19:00 EST , EKG Initial EKG: Attestation: I personally reviewed and interpreted this EKG as follows: Interpretation: Sinus Tachycardia (Sinus tach at 121. Mild ST depression noted in lead V6 only.) Treatment and Re-Evaluation Narrative: CBC was a white count of 25,000 with 70% neutrophils. Hemoglobin is normal at 12.7. Chemistry studies unremarkable with a BUN of 23 and a creatinine of 1.05. Glucose is 137. Troponin is normal at 5. CT scan of the head reveals no acute intracranial process. Portable chest x-ray per my interpretation reveals chronic changes with right hemidiaphragm elevation. No focal infiltrate. Pelvis and right hip x-rays per my interpretation reveal an intertrochanteric right hip fracture. At this time patient states her pain is controlled as long as she does not move. Her systolic blood pressure is now in the 1 20-1 30 range. She remains slightly tachycardic between 110 and 115. Patient had her left hip replaced at [facility] and she would prefer transfer back there for her right hip fracture. Patient has been accepted by Dr. Nicola Adhikari from orthopedics to go ER to ER for evaluation. I did speak with the ER physician at [facility] and they are aware patient was hypotensive on arrival but has responded well to fluids. Addendum: Before patient could be transferred she was noted to repeatedly drop her blood pressure if she did not have IV fluid bolus. Due to concern for internal bleeding patient was sent emergently back to the CT scanner for a CTA of the chest, abdomen, and pelvis. I was called by the techs with what appears to be approximately 10 x 14 cm blood collection in the left pelvis. Repeat hemoglobin at this time is now 7. I spoke with the trauma surgeon at [facility]. Patient will get TXA and trauma blood. We are unable to get an ALS crew for more than 3 hours so patient will be flown for evaluation by the trauma team. Patient and family have been updated throughout. Critical Care Time Critical Care Time: Yes Critical care time (excluding procedures): 30-74 minutes (45 minutes), Discussing w/Patient &/or Family/Matlab Developer, Discussing w/Consultants, Arranging Admission or Transfer and Performing Direct Patient Care at Bedside Discharge Plan Triage Chief Complaint: Fall ED Provider: Jen Olivares Dx/Rx/DC Orders Clinical Impression: Syncope, Fracture of right hip, Hypotension, Fall, Pelvic hematoma Prescriptions: No Action fexofenadine 180 mg tablet 180 mg PO DAILY fluoxetine 40 MG capsule 40 mg PO BID alendronate 70 MG tablet 70 mg PO SA Rx Instructions: unknown buspirone 7.5 MG tablet 15 mg PO BID oxybutynin chloride 5 MG tablet 10 mg PO DAILY glipizide 5 MG tablet 10 mg PO DAILY omeprazole 20 MG tablet,delayed release (DR/EC) 20 mg PO DAILY ergocalciferol (vitamin D2) 50,000 UNIT capsule 50,000 unit PO SA lisinopril 20 MG tablet 20 mg PO DAILY Qty: 30 0RF celecoxib 200 mg Capsule 200 mg PO BREAKFAST Qty: 0 0RF tramadol 50 mg Tablet 50 mg PO Q6H PRN PRN (Reason: Pain Score 6-10) Qty: 30 0RF atorvastatin 20 mg tablet 20 mg PO QHS Biofreeze (menthol) 4 % gel 1 applic topical BID PRN (Reason: pain) cyclobenzaprine 5 mg tablet 5 mg PO TID PRN (Reason: muscle spasm) magnesium hydroxide [Milk of Magnesia] 400 mg/5 mL suspension 30 ml PO DAILY PRN (Reason: constipation) polyethylene glycol 3350 [Miralax] 17 gram/dose powder 17 g PO DAILY PRN (Reason: constipation) Super Multiple Tablet 1 tab PO DAILY carvedilol 3.125 mg tablet 3.125 mg PO BID Qty: 90 3RF Rx Instructions: heart/ blood pressure Primary Care Provider: Rupal Boyer Referrals: Rupal Boyer, HYDRAULIC REPAIRER-C [Primary Care Provider] - Disposition Disposition: Acute Care Hospital Discharge Location: [facility] Discharge Date/Time: 12/23/22 19:47
[2022-12-23] MEDS: Morphine 2 MG/ML Syringe IV (15:09)
[2022-12-23] MEDS: 0.9% Normal Saline (1000mL) 1,000 ML 1000 ML IV (15:09)
[2022-12-23] MEDS: Ondansetron 4 MG/2 ML Vial IV ×2 (15:09→19:07)
[2022-12-23] MEDS: 0.9% Normal Saline (1000mL) 1,000 ML 150 ML IV (15:10)
[2022-12-23 15:11] LABS: Absolute Lymphocyte Count 5.36 X10^3/uL (0.83-4.51); Absolute Neutrophil Count 17.7 X10^3/uL (2.0-7.7); Basophil% 0.4 % (0-1); Eosinophil# 0.45 X10^3/uL; Eosinophils% 1.8 % (0-5); Hematocrit 42.8 % (37-47); Hemoglobin 12.7 g/dL (12.0-15.0); Lymphocyte # 5.36 X10^3/ul (0.83-4.51); Lymphocyte % 21.4 % (19-41); Mean Corp Hgb Conc 29.7 g/dL (32-36); Mean Corpuscular Hgb 27.9 pg (27.0-32.0); Mean Corpuscular Volume 93.9 fL (81-99); Mean Platelet Vol. 9.9 fl (6.2-12.0); Monocyte# 1.02 X10^3/uL; Monocyte% 4.1 % (0-10); NRBC Flagged by Analyzer 0 % (0-5); Neutrophil % 70.7 % (47-70); POSITIVE DIFFERENTIAL YES; POSITIVE MORPHOLOGY YES; Platelet Count 384 K/mm3 (150-450); RBC Distribution Width CV 13.4 % (11.6-14.6); RBC Distribution Width SD 46.3 fl (35.1-43.9); Red Blood Count 4.56 M/mm3 (4.2-5.4)
[2022-12-23 15:12] LABS: Differential Indicated SCAN CRITERIA MET
--- NOTE | 2022-12-23 15:25 | RAD_ITS ---
HISTORY: SOB. TECHNIQUE: XR Chest 1 View. COMPARISON: 08/16/2022. FINDINGS: CARDIOMEDIASTINAL BORDERS: Cardiac silhouette within normal limits in size. Mediastinal contour unremarkable with calcification of the aortic knob. LUNGS: Linear atelectasis or scarring in the right lung base with overall decreased bibasilar opacities. PLEURA: No pleural effusion or pneumothorax seen. OSSEOUS STRUCTURES: Degenerative change with old bilateral rib fractures. RAD/Chest 1 View (Portable) IMPRESSION: Chronic left basilar atelectasis or scarring. Electronically Signed: Britt Peralta MD at 15:47 EST ,
[2022-12-23 15:32] LABS: Anion Gap 7 (5-15); BUN 23 mg/dL (7-18); BUN/Creat Ratio 21.9 RATIO (10-20); Calcium,Total 9.2 mg/dL (8.5-10.1); Chloride 110 mmol/L (98-107); Creatinine, Serum 1.05 mg/dL (0.55-1.02); EST Glomerular Filtration Rate 55 mL/min (>60); Est Glom Filt Rate - Afr Amer 67 mL/min (>60); Estimated Creatinine Clearance 43.67 ml/min; Glucose 137 mg/dL (74-106); Potassium 3.9 mmol/L (3.5-5.1); Sodium Level 140 mmol/L (136-145); Troponin-I HS 5 pg/mL (3.0-54.0)
[2022-12-23 15:46] LABS: Differential Comment SCANNED
[2022-12-23 16:03] LABS: International Normalized Ratio 1.3; Prothrombin Time (Protime)PT. 15.9 SECONDS (11.7-14.9)
[2022-12-23 16:04] LABS: Partial Thromboplast Time 30.4 Seconds (24.1-36.2)
[2022-12-23] MEDS: 0.9% Normal Saline (1000mL) 1,000 ML 999 ML IV (16:47)
--- NOTE | 2022-12-23 18:05 | CT_ITS ---
We are attempting to reach an attending provider to discuss findings. An addendum with communication details will be sent when the communication is complete. EXAM: CT ANGIOGRAPHY CHEST, ABDOMEN AND PELVIS WITH INTRAVENOUS CONTRAST CLINICAL INDICATION: trauma, hypotension TECHNIQUE: Helically acquired angiography images were obtained of the chest, abdomen and pelvis with intravenous contrast. This CT exam was performed using one or more of the following dose reduction techniques: automated exposure control, adjustment of the mA and/or kV according to patient size, and/or use of iterative reconstruction technique. MIP reconstructed images were created and reviewed. CONTRAST: IV 100mL [id number] RADIATION DOSE: CTDIvol = 13.47 mGy, DLP = 1135.32 mGy-cm COMPARISON: 08/13/2022, 08/14/2022. FINDINGS: VASCULATURE: AORTA: No acute findings. Normal in caliber. No dissection. PULMONARY ARTERIES: Unremarkable. Normal in caliber. No obvious central pulmonary embolism although this study was not performed with the pulmonary embolism protocol. GREAT VESSELS OF AORTIC ARCH: Unremarkable. Normal in caliber. No dissection. CELIAC TRUNK AND MESENTERIC ARTERIES: No acute findings. No occlusion or significant stenosis. No dissection. RENAL ARTERIES: No acute findings. No occlusion or significant stenosis. No dissection. ILIAC ARTERIES: No acute findings. No occlusion or significant stenosis. No dissection. CHEST: LUNGS AND PLEURAL SPACES: Atelectasis in the lung bases. Atelectasis in the right lung base. No mass. No pleural effusion or thickening. No pneumothorax. HEART: Unremarkable. Heart size is normal. No pericardial effusion. MEDIASTINUM: Unremarkable. No mediastinal or hilar adenopathy. Esophagus is unremarkable. No hiatal hernia. THYROID: Unremarkable. No thyroid lesions. ABDOMEN: LIVER: Unremarkable. Homogeneous. No focal mass. GALLBLADDER AND BILE DUCTS: Unremarkable. No calcified gallstones. No gallbladder distention or wall edema. No intra- or extrahepatic biliary ductal dilation. PANCREAS: Unremarkable. No focal cystic or solid mass. SPLEEN: Unremarkable. Normal size without focal cystic or solid mass. ADRENALS: Unremarkable. No nodules. KIDNEYS AND URETERS: Bilateral renal cysts. No required imaging follow-up needed given high likelihood of benign nature. Normal renal size and position. No hydronephrosis. STOMACH AND BOWEL: Unremarkable. No stomach or bowel distention. No focal inflammatory change. PELVIS: APPENDIX: Not seen but no evidence of acute appendicitis. BLADDER: Diffuse urinary bladder wall thickening not well seen due to inadequate distention and adjacent hematoma. REPRODUCTIVE: Unremarkable as visualized. No mass. CHEST, ABDOMEN and PELVIS: INTRAPERITONEAL SPACE: Mild perihepatic ascites. No free air. BONES/JOINTS: Right superior and inferior pelvic ring fractures are new. Comminuted fracture of the right proximal femur, intertrochanteric, is new. Numerous thoracic and lumbar spine fractures have not significantly changed. Left hip replacement. Severe osteopenia. Old bilateral rib fractures. SOFT TISSUES: Large hematoma of the left hemipelvis measures 11.4 x 15.5 cm with focal active extravasation/bleeding on image 197 of series 5. No discrete abdominal or pelvic wall hernia. LYMPH NODES: Unremarkable. No enlarged lymph nodes. CT/CTA Chst, Abd, Pel W and/or WO IMPRESSION: 1. Large left pelvic hematoma with active extravasation/bleeding. 2. Right superior and inferior rami fractures. Right IT femur fracture, new. 3. Chronic changes, as above. Electronically Signed: Mckinley Gutierrez MD (Brooks) at 19:00 EST Reading Location ID and State: [facility] / [place] , Service support ,
--- NOTE | 2022-12-23 18:05 | CT_ITS ---
EXAM: CT CERVICAL SPINE WITHOUT INTRAVENOUS CONTRAST CLINICAL INDICATION: trauma TECHNIQUE: Helically acquired images were obtained of the cervical spine without intravenous contrast. 2D reformatted images were reviewed. This CT exam was performed using one or more of the following dose reduction techniques: automated exposure control, adjustment of the mA and/or kV according to patient size, and/or use of iterative reconstruction technique. RADIATION DOSE: CTDIvol = 23.04 mGy, DLP = 493.35 mGy-cm COMPARISON: 08/05/2022 FINDINGS: VERTEBRAE: Multilevel facet arthropathy with some ankylosis. Multilevel spondylosis. Slight degenerative anterolisthesis C4-C5 due to facet arthropathy. Stable appearance of C3 vertebral body possibly congenital or related to previous injury. No fracture. No discrete lytic or blastic abnormality. Normal craniocervical junction and cervicothoracic junction. DISCS/SPINAL CANAL/NEURAL FORAMINA: Foraminal stenosis at left C3-C4 and C4-C5. SOFT TISSUES: Unremarkable. No prevertebral soft tissue swelling. VASCULATURE: Bilateral carotid artery atherosclerosis. LYMPH NODES: Unremarkable. No cervical adenopathy. LUNG APICES: Unremarkable as visualized. Clear. CT/Spine Cervical without Contras IMPRESSION: No acute findings in the cervical spine. Electronically Signed: Mckinley Gutierrez MD (Brooks) at 18:50 EST Reading Location ID and State: [facility] / [place] , Service support ,
--- NOTE | 2022-12-23 18:13 | EKG12_ITS ---
Test Reason : FALL Blood Pressure : / mmHG Vent. Rate : 121 BPM Atrial Rate : 121 BPM P-R Int : 154 ms QRS Dur : 094 ms QT Int : 334 ms P-R-T Axes : 047 -41 063 degrees QTc Int : 474 ms Sinus tachycardia Left axis deviation Nonspecific ST and T wave abnormality Abnormal ECG Confirmed by TERRI WRIGHT, KATARINA ([id number]), continuity editor WILFRID SÁNCHEZ ([id number]) on 01/03/2023 9:54:52 AM Referred By: LAURA/JESSICA Confirmed By:KATARINA MURRAY MD
[2022-12-23 18:39] LABS: Hematocrit 23.8 % (37-47)
--- NOTE | 2022-12-23 18:55 | ED.RN ---
pt gave verbal consent for trauma blood. Verified with Mari Shore RN
[2022-12-23 18:56] LABS: Mucous, Urine 0 SEEN /hpf (<or=2+); Red Blood Cells-Urine 0 SEEN /hpf (0-5); Squamous Epithelial Cells - UA 0 SEEN /hpf (5-10)
[2022-12-23] MEDS: TRANEXAMIC ACID 1,000 MG in 0.9% Normal Saline (100mL Bag) 100 ML 440 MG IV (18:57)
[2022-12-23 19:01] LABS: Color, Urine Yellow (Yellow); Glucose, Dipstick Normal (Normal); Ketone-Dipstick 5 mg/dl (Negative); Leukocyte Esterase-Dipstick 500 /ul (Negative); Nitrite-Dipstick Positive (Negative); Occult Blood-Urine 150 /ul (Negative); Protein-Dipstick 100 mg/dl (Negative); Specific Gravity, Urine 1.015 (1.002-1.030); Urine Bilirubin Dipstick Negative (Negative); Urine Clarity Sl. Cloudy (Clear); Urine Urobilinogen Normal (Normal)
[2022-12-23 19:03] LABS: Lactic Acid 1.7 mmol/L (0.4-1.9)
[2022-12-23 19:11] LABS: Bacteria 2+ /hpf (None Seen); White Blood Cells >100 SEEN /hpf (0-5)
== END 2022-12-23 19:47 | disposition short-term general hospital (02) ==
PROVIDERS: Emergency Provider Emergency Medicine; PCP Nurse Practitioner Family; Visit Provider Emergency Medicine
DX: S72.141A Displaced intertrochanteric fracture of right femur, initial encounter for closed fracture (principal); S32.511A Fracture of superior rim of right pubis, initial encounter for closed fracture; S32.512A Fracture of superior rim of left pubis, initial encounter for closed fracture; E11.9 Type 2 diabetes mellitus without complications; I10 Essential (primary) hypertension; Z87.891 Personal history of nicotine dependence; I25.10 Atherosclerotic heart disease of native coronary artery without angina pectoris; I95.9 Hypotension, unspecified; R55 Syncope and collapse; E78.00 Pure hypercholesterolemia, unspecified; R58 Hemorrhage, not elsewhere classified; W05.2XXA Fall from non-moving motorized mobility scooter, initial encounter; Y92.512 Supermarket, store or market as the place of occurrence of the external cause
CPT/HCPCS: 36430; 70450; 71045; 71275; 72125; 73502; 74174; 80048; 81001; 83605; 84484; 85014; 85018; 85025; 85610; 85730; 86850; 86900; 86901; 93005; 96361; 96374; 96375; 99285; J7030; J7040; J7050; P9016; Q9967; A4216; J2405

== ENCOUNTER → 2023-01-22 | Outpatient (REF) | payer MEDICARE, MEDICAID, SELFPAY ==
[2023-01-22 09:10] LABS: Hematocrit 35.8 % (37-47); Hemoglobin 10.4 g/dL (12.0-15.0); Mean Corp Hgb Conc 29.1 g/dL (32-36); Mean Corpuscular Hgb 28.7 pg (27.0-32.0); Mean Corpuscular Volume 98.9 fL (81-99); Mean Platelet Vol. 9.3 fl (6.2-12.0); Platelet Count 343 K/mm3 (150-450); RBC Distribution Width CV 15.3 % (11.6-14.6); RBC Distribution Width SD 55.4 fl (35.1-43.9); Red Blood Count 3.62 M/mm3 (4.2-5.4); White Blood Count 8.1 K/mm3 (4.4-11.0)
[2023-01-22 09:36] LABS: ALB/GLOB Ratio 0.8 RATIO (0.9-2.4); AST(SGOT) 16 U/L (15-37); Alanine Aminotransfer ALT/SGPT 15 U/L (13-56); Alkaline Phosphatase 147 U/L (45-117); Anion Gap 5 (5-15); BUN 21 mg/dL (7-18); BUN/Creat Ratio 29.2 RATIO (10-20); Calcium,Total 8.8 mg/dL (8.5-10.1); Chloride 106 mmol/L (98-107); Creatinine, Serum 0.72 mg/dL (0.55-1.02); EST Glomerular Filtration Rate 86 mL/min (>60); Est Glom Filt Rate - Afr Amer 104 mL/min (>60); Globulin 3.8 g/dL (2.2-4.2); Glucose 58 mg/dL (74-106); Potassium 3.9 mmol/L (3.5-5.1); Protein, Total 6.8 g/dL (6.4-8.2); Sodium Level 139 mmol/L (136-145)
== END ==
LOC: OLS.SW 05:00
PROVIDERS: PCP Nurse Practitioner Family; Visit Provider Internal Medicine
DX: E11.40 Type 2 diabetes mellitus with diabetic neuropathy, unspecified (principal); E11.22 Type 2 diabetes mellitus with diabetic chronic kidney disease; N18.30 Chronic kidney disease, stage 3 unspecified
CPT/HCPCS: 36415; 80053; 85027

== ENCOUNTER → 2023-01-29 | Outpatient (REF) | payer MEDICARE, SELFPAY ==
[2023-01-29 08:34] LABS: Hemoglobin 10.4 g/dL (12.0-15.0); Mean Corp Hgb Conc 29.7 g/dL (32-36); Mean Corpuscular Hgb 29.2 pg (27.0-32.0); Mean Corpuscular Volume 98.3 fL (81-99); Mean Platelet Vol. 9.2 fl (6.2-12.0); Platelet Count 343 K/mm3 (150-450); RBC Distribution Width CV 14.6 % (11.6-14.6); RBC Distribution Width SD 53.1 fl (35.1-43.9); Red Blood Count 3.56 M/mm3 (4.2-5.4); White Blood Count 7.1 K/mm3 (4.4-11.0)
[2023-01-29 09:44] LABS: ALB/GLOB Ratio 0.8 RATIO (0.9-2.4); AST(SGOT) 13 U/L (15-37); Alanine Aminotransfer ALT/SGPT 14 U/L (13-56); Alkaline Phosphatase 122 U/L (45-117); Anion Gap 6 (5-15); BUN 22 mg/dL (7-18); Calcium,Total 8.8 mg/dL (8.5-10.1); Chloride 110 mmol/L (98-107); Creatinine, Serum 0.67 mg/dL (0.55-1.02); EST Glomerular Filtration Rate 93 mL/min (>60); Est Glom Filt Rate - Afr Amer 113 mL/min (>60); Globulin 3.8 g/dL (2.2-4.2); Glucose 61 mg/dL (74-106); Protein, Total 6.8 g/dL (6.4-8.2); Sodium Level 144 mmol/L (136-145)
== END ==
LOC: OLS.SW 04:00
PROVIDERS: PCP Nurse Practitioner Family; Referring Provider Internal Medicine; Visit Provider Internal Medicine
DX: E11.22 Type 2 diabetes mellitus with diabetic chronic kidney disease (principal); E11.40 Type 2 diabetes mellitus with diabetic neuropathy, unspecified; I12.9 Hypertensive chronic kidney disease with stage 1 through stage 4 chronic kidney disease, or unspecified chronic kidney disease; N18.30 Chronic kidney disease, stage 3 unspecified
CPT/HCPCS: 36415; 80053; 85027

== ENCOUNTER → 2023-02-06 | Outpatient (REF) | payer MEDICARE, MEDICAID, SELFPAY ==
[2023-02-06 08:52] LABS: Hematocrit 34.4 % (37-47); Hemoglobin 10.1 g/dL (12.0-15.0); Mean Corp Hgb Conc 29.4 g/dL (32-36); Mean Corpuscular Hgb 28.1 pg (27.0-32.0); Mean Corpuscular Volume 95.6 fL (81-99); Platelet Count 363 K/mm3 (150-450); RBC Distribution Width CV 14.2 % (11.6-14.6); White Blood Count 8.1 K/mm3 (4.4-11.0)
[2023-02-06 09:15] LABS: ALB/GLOB Ratio 0.7 RATIO (0.9-2.4); AST(SGOT) 15 U/L (15-37); Alanine Aminotransfer ALT/SGPT 13 U/L (13-56); Albumin, Serum 2.7 g/dL (3.2-5.0); Alkaline Phosphatase 114 U/L (45-117); Anion Gap 4 (5-15); BUN 19 mg/dL (7-18); BUN/Creat Ratio 26.5 RATIO (10-20); Chloride 108 mmol/L (98-107); Creatinine, Serum 0.72 mg/dL (0.55-1.02); EST Glomerular Filtration Rate 86 mL/min (>60); Est Glom Filt Rate - Afr Amer 104 mL/min (>60); Globulin 3.7 g/dL (2.2-4.2); Glucose 99 mg/dL (74-106); Potassium 3.9 mmol/L (3.5-5.1); Protein, Total 6.4 g/dL (6.4-8.2); Sodium Level 140 mmol/L (136-145)
== END ==
LOC: OLS.SW 04:00
PROVIDERS: PCP Nurse Practitioner Family; Visit Provider Internal Medicine
DX: E11.40 Type 2 diabetes mellitus with diabetic neuropathy, unspecified (principal); E11.22 Type 2 diabetes mellitus with diabetic chronic kidney disease; N18.30 Chronic kidney disease, stage 3 unspecified
CPT/HCPCS: 36415; 80053; 85027

== ENCOUNTER → 2023-02-07 | Outpatient (REF) | payer MEDICARE, MEDICAID, SELFPAY | LOC: OLS.SW 06:30 | PROVIDERS: PCP Nurse Practitioner Family; Visit Provider Internal Medicine | DX: J02.9 Acute pharyngitis, unspecified (principal) | CPT/HCPCS: 87070 ==

== ENCOUNTER → 2023-02-13 | Outpatient (REF) | payer MEDICARE, MEDICAID, SELFPAY ==
[2023-02-13 08:26] LABS: Hematocrit 36.6 % (37-47); Hemoglobin 11.1 g/dL (12.0-15.0); Mean Corp Hgb Conc 30.3 g/dL (32-36); Mean Corpuscular Hgb 28.3 pg (27.0-32.0); Mean Corpuscular Volume 93.4 fL (81-99); Platelet Count 342 K/mm3 (150-450); RBC Distribution Width CV 14.1 % (11.6-14.6); RBC Distribution Width SD 48.5 fl (35.1-43.9); Red Blood Count 3.92 M/mm3 (4.2-5.4); White Blood Count 7.8 K/mm3 (4.4-11.0)
[2023-02-13 09:10] LABS: ALB/GLOB Ratio 0.8 RATIO (0.9-2.4); AST(SGOT) 14 U/L (15-37); Alanine Aminotransfer ALT/SGPT 14 U/L (13-56); Alkaline Phosphatase 104 U/L (45-117); Anion Gap 4 (5-15); BUN 24 mg/dL (7-18); BUN/Creat Ratio 35.6 RATIO (10-20); Calcium,Total 8.9 mg/dL (8.5-10.1); Chloride 108 mmol/L (98-107); Creatinine, Serum 0.67 mg/dL (0.55-1.02); EST Glomerular Filtration Rate 92 mL/min (>60); Est Glom Filt Rate - Afr Amer 111 mL/min (>60); Globulin 3.7 g/dL (2.2-4.2); Glucose 97 mg/dL (74-106); Protein, Total 6.7 g/dL (6.4-8.2); Sodium Level 138 mmol/L (136-145)
== END ==
LOC: OLS.SW 05:00
PROVIDERS: PCP Nurse Practitioner Family; Visit Provider Internal Medicine
DX: E11.9 Type 2 diabetes mellitus without complications (principal)
CPT/HCPCS: 36415; 80053; 85027

== ENCOUNTER → 2023-02-19 | Outpatient (REF) | payer MEDICARE, MEDICAID, SELFPAY ==
[2023-02-19 09:19] LABS: Hematocrit 39.5 % (37-47); Hemoglobin 11.8 g/dL (12.0-15.0); Mean Corp Hgb Conc 29.9 g/dL (32-36); Mean Corpuscular Hgb 27.9 pg (27.0-32.0); Mean Corpuscular Volume 93.4 fL (81-99); Mean Platelet Vol. 9.3 fl (6.2-12.0); Platelet Count 334 K/mm3 (150-450); RBC Distribution Width CV 13.8 % (11.6-14.6); RBC Distribution Width SD 47.4 fl (35.1-43.9); Red Blood Count 4.23 M/mm3 (4.2-5.4); White Blood Count 7.2 K/mm3 (4.4-11.0)
[2023-02-19 10:13] LABS: ALB/GLOB Ratio 0.8 RATIO (0.9-2.4); AST(SGOT) 11 U/L (15-37); Alanine Aminotransfer ALT/SGPT 11 U/L (13-56); Albumin, Serum 3.1 g/dL (3.2-5.0); Alkaline Phosphatase 103 U/L (45-117); Anion Gap 6 (5-15); BUN 25 mg/dL (7-18); BUN/Creat Ratio 33.3 RATIO (10-20); Calcium,Total 9.2 mg/dL (8.5-10.1); Chloride 106 mmol/L (98-107); Creatinine, Serum 0.75 mg/dL (0.55-1.02); EST Glomerular Filtration Rate 81 mL/min (>60); Est Glom Filt Rate - Afr Amer 98 mL/min (>60); Globulin 3.7 g/dL (2.2-4.2); Glucose 82 mg/dL (74-106); Potassium 3.7 mmol/L (3.5-5.1); Protein, Total 6.8 g/dL (6.4-8.2); Sodium Level 138 mmol/L (136-145)
== END ==
LOC: OLS.SW 04:00
PROVIDERS: PCP Nurse Practitioner Family; Referring Provider Internal Medicine; Visit Provider Internal Medicine
DX: E11.40 Type 2 diabetes mellitus with diabetic neuropathy, unspecified (principal); E11.22 Type 2 diabetes mellitus with diabetic chronic kidney disease; N18.30 Chronic kidney disease, stage 3 unspecified
CPT/HCPCS: 36415; 80053; 85027

== ENCOUNTER → 2023-02-26 | Outpatient (REF) | payer MEDICARE, MEDICAID, SELFPAY ==
[2023-02-26 08:32] LABS: Hemoglobin 11.2 g/dL (12.0-15.0); Mean Corp Hgb Conc 30.3 g/dL (32-36); Mean Corpuscular Hgb 27.8 pg (27.0-32.0); Mean Corpuscular Volume 91.8 fL (81-99); Mean Platelet Vol. 9.3 fl (6.2-12.0); Platelet Count 312 K/mm3 (150-450); RBC Distribution Width CV 13.6 % (11.6-14.6); RBC Distribution Width SD 45.9 fl (35.1-43.9); Red Blood Count 4.03 M/mm3 (4.2-5.4); White Blood Count 7.6 K/mm3 (4.4-11.0)
[2023-02-26 09:08] LABS: ALB/GLOB Ratio 0.8 RATIO (0.9-2.4); AST(SGOT) 14 U/L (15-37); Alanine Aminotransfer ALT/SGPT 12 U/L (13-56); Albumin, Serum 2.9 g/dL (3.2-5.0); Alkaline Phosphatase 90 U/L (45-117); Anion Gap 6 (5-15); BUN 24 mg/dL (7-18); BUN/Creat Ratio 35.1 RATIO (10-20); Calcium,Total 8.7 mg/dL (8.5-10.1); Chloride 108 mmol/L (98-107); Creatinine, Serum 0.68 mg/dL (0.55-1.02); EST Glomerular Filtration Rate 91 mL/min (>60); Est Glom Filt Rate - Afr Amer 110 mL/min (>60); Globulin 3.7 g/dL (2.2-4.2); Glucose 93 mg/dL (74-106); Protein, Total 6.6 g/dL (6.4-8.2); Sodium Level 141 mmol/L (136-145)
== END ==
LOC: OLS.SW 05:00
PROVIDERS: PCP Nurse Practitioner Family; Visit Provider Internal Medicine
DX: E11.9 Type 2 diabetes mellitus without complications (principal)
CPT/HCPCS: 36415; 80053; 85027

== ENCOUNTER → 2023-03-05 | Outpatient (REF) | payer MEDICARE, MEDICAID, SELFPAY ==
[2023-03-05 08:40] LABS: Hematocrit 37.7 % (37-47); Hemoglobin 11.5 g/dL (12.0-15.0); Mean Corp Hgb Conc 30.5 g/dL (32-36); Mean Corpuscular Hgb 27.6 pg (27.0-32.0); Mean Corpuscular Volume 90.4 fL (81-99); Mean Platelet Vol. 9.1 fl (6.2-12.0); Platelet Count 306 K/mm3 (150-450); RBC Distribution Width CV 13.5 % (11.6-14.6); RBC Distribution Width SD 44.5 fl (35.1-43.9); Red Blood Count 4.17 M/mm3 (4.2-5.4); White Blood Count 7.7 K/mm3 (4.4-11.0)
[2023-03-05 08:55] LABS: ALB/GLOB Ratio 0.9 RATIO (0.9-2.4); AST(SGOT) 13 U/L (15-37); Alanine Aminotransfer ALT/SGPT 12 U/L (13-56); Albumin, Serum 3.1 g/dL (3.2-5.0); Alkaline Phosphatase 100 U/L (45-117); Anion Gap 3 (5-15); BUN 23 mg/dL (7-18); BUN/Creat Ratio 31.9 RATIO (10-20); Calcium,Total 9.3 mg/dL (8.5-10.1); Chloride 108 mmol/L (98-107); Creatinine, Serum 0.72 mg/dL (0.55-1.02); EST Glomerular Filtration Rate 85 mL/min (>60); Est Glom Filt Rate - Afr Amer 103 mL/min (>60); Globulin 3.6 g/dL (2.2-4.2); Glucose 112 mg/dL (74-106); Protein, Total 6.7 g/dL (6.4-8.2); Sodium Level 140 mmol/L (136-145)
== END ==
LOC: OLS.SW 05:00
PROVIDERS: PCP Nurse Practitioner Family; Visit Provider Internal Medicine
DX: E11.40 Type 2 diabetes mellitus with diabetic neuropathy, unspecified (principal); E11.22 Type 2 diabetes mellitus with diabetic chronic kidney disease; E55.9 Vitamin D deficiency, unspecified; E78.5 Hyperlipidemia, unspecified; I12.9 Hypertensive chronic kidney disease with stage 1 through stage 4 chronic kidney disease, or unspecified chronic kidney disease; N18.30 Chronic kidney disease, stage 3 unspecified; S72.141D Displaced intertrochanteric fracture of right femur, subsequent encounter for closed fracture with routine healing
CPT/HCPCS: 36415; 80053; 85027

== ENCOUNTER → 2023-03-12 | Outpatient (REF) | payer MEDICARE, MEDICAID, SELFPAY ==
[2023-03-12 08:19] LABS: Hemoglobin 11.8 g/dL (12.0-15.0); Mean Corp Hgb Conc 30.3 g/dL (32-36); Mean Corpuscular Hgb 27.1 pg (27.0-32.0); Mean Corpuscular Volume 89.7 fL (81-99); Mean Platelet Vol. 9.3 fl (6.2-12.0); Platelet Count 321 K/mm3 (150-450); RBC Distribution Width CV 13.6 % (11.6-14.6); RBC Distribution Width SD 44.8 fl (35.1-43.9); Red Blood Count 4.35 M/mm3 (4.2-5.4); White Blood Count 7.4 K/mm3 (4.4-11.0)
[2023-03-12 08:48] LABS: ALB/GLOB Ratio 0.9 RATIO (0.9-2.4); AST(SGOT) 13 U/L (15-37); Alanine Aminotransfer ALT/SGPT 13 U/L (13-56); Albumin, Serum 3.1 g/dL (3.2-5.0); Alkaline Phosphatase 98 U/L (45-117); Anion Gap 2 (5-15); BUN 25 mg/dL (7-18); BUN/Creat Ratio 33.5 RATIO (10-20); Calcium,Total 9.3 mg/dL (8.5-10.1); Chloride 113 mmol/L (98-107); Creatinine, Serum 0.75 mg/dL (0.55-1.02); EST Glomerular Filtration Rate 82 mL/min (>60); Est Glom Filt Rate - Afr Amer 99 mL/min (>60); Globulin 3.6 g/dL (2.2-4.2); Glucose 97 mg/dL (74-106); Potassium 4.3 mmol/L (3.5-5.1); Protein, Total 6.7 g/dL (6.4-8.2); Sodium Level 141 mmol/L (136-145)
== END ==
LOC: OLS.SW 04:00
PROVIDERS: PCP Nurse Practitioner Family; Referring Provider Internal Medicine; Visit Provider Internal Medicine
DX: E11.9 Type 2 diabetes mellitus without complications (principal)
CPT/HCPCS: 36415; 80053; 85027

== ENCOUNTER → 2023-03-19 | Outpatient (REF) | payer MEDICARE, MEDICAID, SELFPAY ==
[2023-03-19 08:26] LABS: Hematocrit 36.7 % (37-47); Hemoglobin 11.2 g/dL (12.0-15.0); Mean Corp Hgb Conc 30.5 g/dL (32-36); Mean Corpuscular Hgb 27.5 pg (27.0-32.0); Mean Corpuscular Volume 90.2 fL (81-99); Mean Platelet Vol. 9.4 fl (6.2-12.0); Platelet Count 304 K/mm3 (150-450); RBC Distribution Width CV 13.8 % (11.6-14.6); RBC Distribution Width SD 45.3 fl (35.1-43.9); Red Blood Count 4.07 M/mm3 (4.2-5.4); White Blood Count 8.4 K/mm3 (4.4-11.0)
[2023-03-19 08:35] LABS: ALB/GLOB Ratio 0.8 RATIO (0.9-2.4); AST(SGOT) 7 U/L (15-37); Alanine Aminotransfer ALT/SGPT 14 U/L (13-56); Albumin, Serum 3.3 g/dL (3.2-5.0); Alkaline Phosphatase 107 U/L (45-117); Anion Gap 3 (5-15); BUN 32 mg/dL (7-18); BUN/Creat Ratio 43.4 RATIO (10-20); Calcium,Total 9.1 mg/dL (8.5-10.1); Chloride 111 mmol/L (98-107); Creatinine, Serum 0.74 mg/dL (0.55-1.02); EST Glomerular Filtration Rate 83 mL/min (>60); Est Glom Filt Rate - Afr Amer 100 mL/min (>60); Globulin 3.9 g/dL (2.2-4.2); Glucose 108 mg/dL (74-106); Potassium 4.1 mmol/L (3.5-5.1); Protein, Total 7.2 g/dL (6.4-8.2); Sodium Level 140 mmol/L (136-145)
== END ==
LOC: OLS.SW 05:00
PROVIDERS: PCP Nurse Practitioner Family; Visit Provider Internal Medicine
DX: E11.40 Type 2 diabetes mellitus with diabetic neuropathy, unspecified (principal)
CPT/HCPCS: 36415; 80053; 85027

== ENCOUNTER → 2023-03-26 | Outpatient (REF) | payer MEDICARE, MEDICAID, SELFPAY ==
[2023-03-26 08:21] LABS: Hematocrit 36.2 % (37-47); Hemoglobin 11.1 g/dL (12.0-15.0); Mean Corp Hgb Conc 30.7 g/dL (32-36); Mean Corpuscular Hgb 27.4 pg (27.0-32.0); Mean Corpuscular Volume 89.4 fL (81-99); Mean Platelet Vol. 9.5 fl (6.2-12.0); Platelet Count 289 K/mm3 (150-450); RBC Distribution Width CV 13.8 % (11.6-14.6); RBC Distribution Width SD 45.1 fl (35.1-43.9); Red Blood Count 4.05 M/mm3 (4.2-5.4); White Blood Count 8.6 K/mm3 (4.4-11.0)
[2023-03-26 10:34] LABS: ALB/GLOB Ratio 0.9 RATIO (0.9-2.4); AST(SGOT) 14 U/L (15-37); Alanine Aminotransfer ALT/SGPT 11 U/L (13-56); Albumin, Serum 3.2 g/dL (3.2-5.0); Alkaline Phosphatase 97 U/L (45-117); Anion Gap 5 (5-15); BUN 30 mg/dL (7-18); BUN/Creat Ratio 40.7 RATIO (10-20); Calcium,Total 8.9 mg/dL (8.5-10.1); Chloride 115 mmol/L (98-107); Creatinine, Serum 0.74 mg/dL (0.55-1.02); EST Glomerular Filtration Rate 83 mL/min (>60); Est Glom Filt Rate - Afr Amer 100 mL/min (>60); Globulin 3.5 g/dL (2.2-4.2); Glucose 124 mg/dL (74-106); Potassium 3.8 mmol/L (3.5-5.1); Protein, Total 6.7 g/dL (6.4-8.2); Sodium Level 143 mmol/L (136-145)
== END ==
LOC: OLS.SW 05:00
PROVIDERS: PCP Nurse Practitioner Family; Visit Provider Internal Medicine
DX: E11.9 Type 2 diabetes mellitus without complications (principal)
CPT/HCPCS: 36415; 80053; 85027

== ENCOUNTER 2023-04-14 01:54 | Inpatient (IN) | payer MEDICARE, MEDICAID, SELFPAY ==
[2023-04-14] VITALS (35 sets, daily range): BP systolic 71–225; BP diastolic 48–144; PULSE 76–112; RESP 12–24; TEMP 36–37.1; O2SAT 91–100; BMI 26.6; BMI 26.0
--- NOTE | 2023-04-14 02:00 | EKG12_ITS ---
Test Reason : DYSRHYTHMIA Blood Pressure : / mmHG Vent. Rate : 106 BPM Atrial Rate : 106 BPM P-R Int : 162 ms QRS Dur : 090 ms QT Int : 384 ms P-R-T Axes : 058 -19 062 degrees QTc Int : 510 ms Sinus tachycardia Otherwise normal ECG Confirmed by Fabián Azar ([id number]), editor house organ CAIT VIDES ([id number]) on 04/16/2023 10:26:20 AM Referred By: DULCE Confirmed By:Fabián Azar
[2023-04-14] MEDS: cloNIDine HCl 0.1 MG Tablet 0.100000000000000006 MG PO ×2 (03:12→05:00)
[2023-04-14] MEDS: HYDROmorphone 0.5 MG/0.5 ML SYRINGE IV ×2 (03:12→06:21)
[2023-04-14] MEDS: Ondansetron 4 MG/2 ML Vial IV ×2 (03:13→18:29)
[2023-04-14 03:14] LABS: Absolute Lymphocyte Count 1.59 X10^3/uL (0.83-4.51); Absolute Neutrophil Count 17.2 X10^3/uL (2.0-7.7); Basophil# 0.03 X10^3/uL; Basophil% 0.2 % (0-1); Eosinophil# 0.04 X10^3/uL; Eosinophils% 0.2 % (0-5); Hematocrit 51.3 % (37-47); Hemoglobin 15.9 g/dL (12.0-15.0); Lymphocyte # 1.59 X10^3/ul (0.83-4.51); Lymphocyte % 8.2 % (19-41); Mean Corpuscular Hgb 26.9 pg (27.0-32.0); Mean Corpuscular Volume 86.8 fL (81-99); Mean Platelet Vol. 9.9 fl (6.2-12.0); Monocyte# 0.42 X10^3/uL; Monocyte% 2.2 % (0-10); NRBC Flagged by Analyzer 0 % (0-5); Neutrophil # 17.17 X10^3/uL (2.7-7.7); Neutrophil % 88.6 % (47-70); Platelet Count 366 K/mm3 (150-450); RBC Distribution Width CV 13.8 % (11.6-14.6); Red Blood Count 5.91 M/mm3 (4.2-5.4); White Blood Count 19.4 K/mm3 (4.4-11.0)
[2023-04-14 03:40] LABS: AST(SGOT) 28 U/L (15-37); Alanine Aminotransfer ALT/SGPT 19 U/L (13-56); Albumin, Serum 4.4 g/dL (3.2-5.0); Alkaline Phosphatase 127 U/L (45-117); Anion Gap 12 (5-15); BUN 16 mg/dL (7-18); BUN/Creat Ratio 15.2 RATIO (10-20); Bilirubin, Direct 0.17 mg/dL (0.00-0.30); Calcium,Total 10.1 mg/dL (8.5-10.1); Chloride 101 mmol/L (98-107); Creatinine, Serum 1.05 mg/dL (0.55-1.02); EST Glomerular Filtration Rate 55 mL/min (>60); Est Glom Filt Rate - Afr Amer 67 mL/min (>60); Estimated Creatinine Clearance 50.55 ml/min; Globulin 4.7 g/dL (2.2-4.2); Glucose 312 mg/dL (74-106); Lipase 21 U/L (13-75); Potassium 4.2 mmol/L (3.5-5.1); Protein, Total 9.1 g/dL (6.4-8.2); Sodium Level 137 mmol/L (136-145)
[2023-04-14] MEDS: Labetalol (Prefilled) 20 MG/4 ML IV (04:08)
--- NOTE | 2023-04-14 04:20 | CT_ITS ---
EXAM: CT ABDOMEN AND PELVIS WITH INTRAVENOUS CONTRAST CLINICAL INDICATION: abd pain TECHNIQUE: Helically acquired images were obtained of the abdomen and pelvis with intravenous contrast. This CT exam was performed using one or more of the following dose reduction techniques: automated exposure control, adjustment of the mA and/or kV according to patient size, and/or use of iterative reconstruction technique. CONTRAST: 75 cc of Isovue-370 IV. RADIATION DOSE: CTDIvol = 17.63 mGy, DLP = 1033.16 mGy-cm COMPARISON: 12/23/2022. FINDINGS: LOWER THORAX: Coronary artery calcifications. Subsegmental atelectasis right lung base. No cardiomegaly. No significant pericardial effusion. ABDOMEN: LIVER: Unremarkable. Homogeneous. No focal mass. GALLBLADDER AND BILE DUCTS: Unremarkable. No calcified gallstones. No gallbladder distention or wall edema. No intra- or extrahepatic biliary ductal dilation. PANCREAS: Diffuse fatty infiltration of the pancreas. SPLEEN: Small splenic cyst. ADRENALS: Unremarkable. No nodules. KIDNEYS AND URETERS: Simple bilateral renal cysts. No follow-up of these simple cysts is necessary. Normal renal size and position. No hydronephrosis. STOMACH AND BOWEL: Wall thickening of the rectum probably due to proctitis. Mild fat stranding adjacent to the second portion the duodenum and head of the pancreas. Numerous diverticula without diverticulitis. No stomach or bowel distention. PELVIS: APPENDIX: No evidence of acute appendicitis. BLADDER: Unremarkable. REPRODUCTIVE: Hysterectomy. ABDOMEN and PELVIS: INTRAPERITONEAL SPACE: Unremarkable. No ascites or other fluid collection. No free air. BONES/JOINTS: Left total hip arthroplasty. Components appear well seated. Nail fixation right hip. Old bilateral superior and inferior pubic rami fractures. No suspicious lytic or blastic abnormality. SOFT TISSUES: Unremarkable. No discrete abdominal or pelvic wall hernia. VASCULATURE: See above. LYMPH NODES: Unremarkable. No enlarged lymph nodes. CT/Abdomen/Pelvis W IV Cont ONLY IMPRESSION: 1. Wall thickening of the rectum probably due to proctitis. Rectal mass not completely excluded. Recommend direct observation. 2. Mild fat stranding adjacent to the second portion the duodenum and head of the pancreas. Correlate with laboratory values to evaluate for pancreatitis. 3. Coronary artery disease. 4. Hysterectomy. 5. Left total hip arthroplasty. Components appear well seated. 6. Numerous diverticula without diverticulitis. 7. Subsegmental atelectasis right lung base. 8. Diffuse fatty infiltration of the pancreas. 9. Old bilateral superior and inferior pubic rami fractures. Electronically Signed: Fabián Marcos MD at 4:55 EST ,
[2023-04-14 04:39] LABS: Mucous, Urine 0 SEEN /hpf (<or=2+); Red Blood Cells-Urine 0 SEEN /hpf (0-5); Squamous Epithelial Cells - UA 0 SEEN /hpf (5-10)
[2023-04-14 04:40] LABS: Color, Urine Yellow (Yellow); Glucose, Dipstick 1000 mg/dl (Normal); Ketone-Dipstick 50 mg/dl (Negative); Leukocyte Esterase-Dipstick 25 /ul (Negative); Nitrite-Dipstick Negative (Negative); Occult Blood-Urine 25 /ul (Negative); Protein-Dipstick 500 mg/dl (Negative); Urine Bilirubin Dipstick Negative (Negative); Urine Clarity Sl. Cloudy (Clear); Urine Urobilinogen Normal (Normal)
[2023-04-14 04:47] LABS: Bacteria 3+ /hpf (None Seen); White Blood Cells 5-10 SEEN /hpf (0-5)
[2023-04-14] MEDS: hydrALAZINE 20 MG/ML Vial 10 MG IV (05:01)
--- NOTE | 2023-04-14 05:13 | EDS_ITS ---
HPI History of Present Illness Chief Complaint: Nausea/Vomiting/Diarrhea Informant: patient and spouse/S.O. Narrative Narrative: Patient is a 67-year-old female with past medical history of hypertension hyperlipidemia diabetes chronic kidney disease and previous hip fracture requiring ORIF. Patient and spouse state that after the fracture and her hospital stay she was sent to the senior care where she has been since approximately . They state that she is only been home for the last week or so and that there is been difficulty in having her continue the medications which she was receiving at the senior care. Patient states that in the last few hours she developed generalized abdominal discomfort with bouts of nausea and vomiting and overall sense of feeling unwell. She also states that is been approximate 24 hours since her last oxycodone use which she also reports she was taking daily at the senior care. Otherwise she denies any fevers or chills or chest pain or shortness of breath. [facility] Medical History Anxiety Atrial fibrillation Back pain due to injury Bipolar disorder Closed intertrochanteric fracture of left hip Dementia Depression Essential (primary) hypertension Former smoker GERD (gastroesophageal reflux disease) Hearing loss, right Hiatal hernia High cholesterol Hyperlipidemia Injury of head and neck Irritable bowel Migraines Nonobstructive atherosclerosis of coronary artery NSTEMI (non-ST elevated myocardial infarction) (01/06/18) Obesity Psoriatic arthritis Restless legs Sleep apnea Takotsubo syndrome Type 2 diabetes mellitus Home Medications alendronate 70 mg tablet 70 mg PO SA osteoporosis 01/06/18 [History Last Taken Unknown] buspirone 7.5 mg tablet 15 mg PO BID anxiety 01/06/18 [History Last Taken Unknown] fluoxetine 40 mg capsule 40 mg PO BID anxiety 01/06/18 [History Last Taken Unknown] glipizide 5 mg tablet 10 mg PO DAILY antidiabetic 01/06/18 [History Last Taken Unknown] omeprazole 20 mg tablet,delayed release 20 mg PO DAILY GERD 01/06/18 [History Last Taken Unknown] oxybutynin chloride 5 mg tablet 10 mg PO DAILY 01/06/18 [History Last Taken Unknown] carvedilol 3.125 mg tablet 3.125 mg PO BID #90 tabs 07/10/18 [Rx Last Taken Unknown] ergocalciferol (vitamin D2) 1,250 mcg (50,000 unit) capsule 50,000 unit PO SA supplement 02/12/19 [History Last Taken Unknown] lisinopril 20 mg tablet 20 mg PO DAILY #30 tabs 02/15/19 [Rx Last Taken Unknown] fexofenadine 180 mg tablet 180 mg PO DAILY 07/06/22 [History Last Taken Unknown] celecoxib 200 mg capsule 200 mg PO BREAKFAST #0 caps 08/16/22 [Rx Last Taken Unknown] tramadol 50 mg tablet 50 mg PO Q6H PRN PRN Pain Score 6-10 #30 tabs 08/16/22 [Rx Last Taken Unknown] atorvastatin 20 mg tablet 20 mg PO QHS 09/15/22 [History Last Taken Unknown] cyclobenzaprine 5 mg tablet 5 mg PO TID PRN muscle spasm 09/15/22 [History Last Taken Unknown] magnesium hydroxide 400 mg/5 mL oral suspension (Milk of Magnesia) 30 ml PO DAILY PRN constipation 09/15/22 [History Last Taken Unknown] menthol 4 % topical gel (Biofreeze (menthol)) 1 applic topical BID PRN pain 0 09/15/22 [History Last Taken Unknown] multivitamin with iron-mineral (Super Multiple tablet) 1 tab PO DAILY 09/15/22 [History Last Taken Unknown] polyethylene glycol 3350 17 gram/dose oral powder (Miralax) 17 g PO DAILY PRN constipation 09/15/22 [History Last Taken Unknown] cephalexin 500 mg capsule 500 mg PO TID 7 days #21 caps 04/14/23 [Rx Last Taken Unknown] ondansetron 4 mg disintegrating tablet 4 mg PO TID PRN nausea and vomiting #21 tabs 04/14/23 [Rx Last Taken Unknown] Allergy/AdvReac Type Severity Reaction Status Date / Time morphine Allergy Mild confusion Verified 12/23/22 15:39 codeine Allergy Itching Verified 12/23/22 15:39 fentanyl AdvReac confusion Verified 12/23/22 15:39 naproxen AdvReac Other Verified 12/23/22 15:39 Family History Mother Cancer skin Father Cancer prostate Surgical History History of back surgery History of carpal tunnel release of both wrists History of hysterectomy History of left heart catheterization (01/07/18) Social History Smoking Status: Former smoker how long ago did patient quit smokin years ago alcohol intake: never substance use type: does not use caffeine: Yes Type: carbonated beverages Number of servings: 1 ROS ROS ED Constitutional Constitutional ED: Denies chills or fever(s) Eyes Eyes: Denies change in vision ENT ENT ED: Denies sore throat Cardiovascular Cardiovascular: Denies chest pain, palpitations or racing heartbeat Respiratory/Chest Respiratory/Chest: Denies cough or dyspnea Gastrointestinal Gastrointestinal: Reports abdominal pain, nausea and vomiting; Denies diarrhea Genitourinary Genitourinary ED: Denies dysuria Musculoskeletal Musculoskeletal: Reports myalgias Integumentary Denies rash Neurologic Neurologic: Denies headache(s) Hematologic/Lymphatic Hematologic/Lymphatic: Denies easy bleeding or easy bruising EXAM Physical Exam Const Vital Signs: 04/14/23 01:55 04/14/23 01:59 04/14/23 03:18 Temperature 96.8 F L 96.8 F L Temperature Source Temporal Temporal Pulse Rate 107 H 110 H 103 H Respiratory Rate 16 22 H 22 H Blood Pressure 216/144 H 216/114 H 225/101 H Blood Pressure Mean 168 148 142 Pulse Ox 100 98 93 Oxygen Delivery Method Room Air Room Air 04/14/23 03:22 04/14/23 04:38 04/14/23 03:51 Temperature Temperature Source Pulse Rate 104 H 89 99 Respiratory Rate 24 H 21 H 24 H Blood Pressure 194/114 H 198/99 H 202/109 H Blood Pressure Mean 140 132 140 Pulse Ox 93 92 92 Oxygen Delivery Method Room Air Room Air 04/14/23 05:32 Temperature 98.4 F Temperature Source Pulse Rate 98 Respiratory Rate 16 Blood Pressure 162/99 H Blood Pressure Mean 120 Pulse Ox 94 Oxygen Delivery Method Positive well nourished and well developed General Appearance ED: well developed; Negative for pallor HEENT HEENT Narrative: No tongue or lip swelling no oral lesions no airway edema or compromise No signs of infection noted in the posterior pharynx Eyes PERRL and EOMs intact bilaterally General Eye ED: Negative for scleral icterus Neck supple and no JVD Neck Narrative: No nuchal rigidity or meningeal signs noted Chest Wall palpation of chest normal Resp normal respiratory effort and clear to auscultation bilaterally Resp Narrative: Breath sounds are slight diminished throughout but overall clear to auscultation without signs of respiratory distress Cardio regular rhythm Rate: tachycardic and other Other Details: Slightly tachycardic rate with regular rhythm Radial and carotid pulses are equal and symmetric GI non-distended GI Narrative: Abdomen is soft and nondistended with hyperactive bowel sounds. There is mild generalized pain with palpation without voluntary guarding or rigidity. No puls atile mass or fluid wave Auscultation: hyperactive bowel sounds Palpation: soft Extremity normal to inspection Extremity Narrative: No asymmetric edema no pitting edema negative Homans' sign bilaterally Neuro oriented x3 and CN's II-XII intact bilaterally Sensorium / Orientation: alert Psych Psych Narrative: Patient has a flat affect Skin no rashes or lesions noted General Skin Exam: Negative for jaundice or pallor MDM MDM MDM Narrative Medical decision making narrative: Patient arrived to the ER hypertensive but does have a past medical history of this. Significant other reported that he feels there has been difficulty with her medications since she is returned from the senior care. Patient also reported it has been roughly 24 hours since her last oxycodone use. Her hypertension and tachycardia and generalized abdominal discomfort with nausea/vomiting and feeling unwell could be related to opioid withdrawal. However there is also concern for infectious process such as UTI acute cholecystitis pancreatitis or diverticulitis as a potential cause of her abdominal pain. Secondary to his basic labs were obtained. As she also is hypertensive there is concern for acute kidney injury or cardiac event. The patient's EKG shows normal sinus rhythm and there is no signs of STEMI or acute ischemia and the patient does not have chest pain therefore do not feel there is any signs of acute coronary event present. Patient's kidney function is not clinically significantly elevated going against DURAN. Her white count however is elevated 19.4 which could be stress response or potentially secondary to an infection and urine does show changes concerning for this with +3 bacteria and 5-10 white cells. Because of the high white count a CT of the abdomen pelvis was obtained which revealed chronic findings without acute changes such as diverticulitis obstruction or abscess or perforation. The patient responded to IV fluids as well as IV pain medication and her symptoms resolved therefore indicating that majority her symptoms are most likely related to opioid withdrawal. However after roughly an hour and a half the patient began to have return of generalized abdominal discomfort with feeling unwell indicating that withdrawal was returning. She was also given labetalol hydralazine and clonidine and this did help improve her blood pressure. However as symptoms began returning her blood pressure also began to elevate. Therefore at this time as patient's showing recurrent bouts of nausea and vomiting with UTI and accelerated hypertension I do not feel she would do well at home and therefore discussed the case with the hospitalist. He agrees to accept the patient at this time for continued care regarding her symptoms. The urine was sent for culture and she was started on Rocephin secondary to the acute UTI but as she is afebrile and not tachycardic and hypertensive not hypotensive she does not qualify for septic criteria at this time. History & Record Review Discussion w/independent historian: Patient and Significant other Lab Data Attestation: I reviewed the patient's lab results. Labs: Laboratory Results - last 24 hr 04/14/23 04/14/23 04/14/23 02:00 03:10 04:35 WBC 19.4 H RBC 5.91 H Hgb 15.9 H Hct 51.3 H MCV 86.8 MCH 26.9 L MCHC 31.0 L RDW Std Deviation 44.0 H RDW Coeff of Gerhard 13.8 Plt Count 366 MPV 9.9 Immature Gran % (Auto) 0.600 Neut % (Auto) 88.6 H Lymph % (Auto) 8.2 L [place] % (Auto) 2.2 Eos % (Auto) 0.2 Baso % (Auto) 0.2 Absolute Neuts (auto) 17.2 H Absolute Lymphs (auto) 1.59 Nucleated RBC % 0 Sodium 137 Potassium 4.2 Chloride 101 Carbon Dioxide 24.0 Anion Gap 12 BUN 16 Creatinine 1.05 H Estim Creat Clear Calc 50.55 Est GFR (MDRD) Af Amer 67 Est GFR (MDRD) Non-Af 55 L BUN/Creatinine Ratio 15.2 Glucose 312 H Calcium 10.1 Total Bilirubin 1.20 H Direct Bilirubin 0.17 AST 28 ALT 19 Alkaline Phosphatase 127 H Ammonia 41.0 H Total Protein 9.1 H Albumin 4.4 Globulin 4.7 H Lipase 21 Urine Color Yellow Urine Clarity Sl. Cloudy Urine pH 7.0 Ur Specific [place] 1.010 Urine Protein 500 H Urine Glucose (UA) 1000 H Urine Ketones 50 H Urine Occult Blood 25 H Urine Nitrite Negative Urine Bilirubin Negative Urine Urobilinogen Normal Ur Leukocyte Esterase 25 H Urine RBC 0 SEEN Urine WBC 5-10 SEEN Ur Squamous Epith Cells 0 SEEN Urine Bacteria 3+ Urine Mucus 0 SEEN Radiography Diagnostic Testing: Clinical Impression(s) from Imaging Studies Abdomen/Pelvis CT 04/14/23 04:20 IMPRESSION: 1. Wall thickening of the rectum probably due to proctitis. Rectal mass not completely excluded. Recommend direct observation. 2. Mild fat stranding adjacent to the second portion the duodenum and head of the pancreas. Correlate with laboratory values to evaluate for pancreatitis. 3. Coronary artery disease. 4. Hysterectomy. 5. Left total hip arthroplasty. Components appear well seated. 6. Numerous diverticula without diverticulitis. 7. Subsegmental atelectasis right lung base. 8. Diffuse fatty infiltration of the pancreas. 9. Old bilateral superior and inferior pubic rami fractures. Electronically Signed: Fabián Marcos MD at 4:55 EST , Management Discussion w/another healthcare provider: Hospitalist Discharge Plan Dx/Rx/DC Orders Clinical Impression: Urinary tract infection, Opioid withdrawal, Accelerated hypertension, CKD (chronic kidney disease), stage III, Type 2 diabetes mellitus Disposition Disposition: Acute Care Hospital [facility]
[2023-04-14] MEDS: Cephalexin 250 MG Capsule 500 MG PO (05:30)
--- NOTE | 2023-04-14 06:15 | PCM.HP.STD ---
[facility] - General General Date of Admission: 04/14/23 Date of Service: 04/14/23 Chief Complaint: Nausea, Vomiting and Abdominal Pain. [facility] Narrative LUBA BENAVIDEZ, is a 67 F with a past medical history of essential hypertension, hyperlipidemia, overweight; with BMI of 26.7 this admission, BURKE, DM-2; of unknown control, remote history of tobacco abuse (quit ~1992), CAD; s/p NSTEMI (2018), history of atrial fibrillation, history of Takotsubo's cardiomyopathy, CKD; stage III, early dementia, bipolar disorder, generalized anxiety disorder, history of migraine headaches, history of opioid withdrawal, RLS, IBS, overactive bladder, frequent UTI's, history of hysterectomy, psoriatic arthritis, history of diverticulosis, GERD; with hiatal hernia, osteoporosis; with history of compression fracture and pubic rami fractures, OA; with history of back surgery and recent admission here on 12/23/2022 after she had a mechanical fall followed by a syncopal event with a subsequent Left hip fracture with ORIF done but she did require ECF for rehabilitation with recent discharge from facility back home who presents to [facility] ER complaining of nausea, vomiting and abdominal pain. Ms. Benavidez reports her symptoms began approximately x In the ER her CT scan of the abdomen and pelvis was positive for evidence of proctitis; with possible rectal mass (with direct observation/GI consult recommended) and mild fat stranding of the second portion of the duodenum and the head of the pancreas consistent with pancreatitis complicated by diffuse fatty infiltration of the pancreas with a UA mildly positive for acute cystitis; without hematuria with corresponding laboratory evidence of leukocytosis of 19.4 and hyperglycemia of 312 mg/dL present on admission with a highly elevated blood pressure 216/144 mm Hg present on admission due to suspected hypertensive urgency and she was then admitted to PCU for ongoing care for a stay that is expected to be greater than 48 hours. [facility] Medical History Anxiety Atrial fibrillation Back pain due to injury Bipolar disorder Closed intertrochanteric fracture of left hip Dementia Depression Essential (primary) hypertension Former smoker GERD (gastroesophageal reflux disease) Hearing loss, right Hiatal hernia High cholesterol Hyperlipidemia Injury of head and neck Irritable bowel Migraines Nonobstructive atherosclerosis of coronary artery NSTEMI (non-ST elevated myocardial infarction) (01/06/18) Obesity Psoriatic arthritis Restless legs Sleep apnea Takotsubo syndrome Type 2 diabetes mellitus Home Medications alendronate 70 mg tablet 70 mg PO SA osteoporosis 01/06/18 [History Last Taken Unknown] buspirone 7.5 mg tablet 15 mg PO BID anxiety 01/06/18 [History Last Taken Unknown] fluoxetine 40 mg capsule 40 mg PO BID anxiety 01/06/18 [History Last Taken Unknown] glipizide 5 mg tablet 10 mg PO DAILY antidiabetic 01/06/18 [History Last Taken Unknown] omeprazole 20 mg tablet,delayed release 20 mg PO DAILY GERD 01/06/18 [History Last Taken Unknown] oxybutynin chloride 5 mg tablet 10 mg PO DAILY 01/06/18 [History Last Taken Unknown] carvedilol 3.125 mg tablet 3.125 mg PO BID #90 tabs 07/10/18 [Rx Last Taken Unknown] ergocalciferol (vitamin D2) 1,250 mcg (50,000 unit) capsule 50,000 unit PO SA supplement 02/12/19 [History Last Taken Unknown] lisinopril 20 mg tablet 20 mg PO DAILY #30 tabs 02/15/19 [Rx Last Taken Unknown] fexofenadine 180 mg tablet 180 mg PO DAILY 07/06/22 [History Last Taken Unknown] celecoxib 200 mg capsule 200 mg PO BREAKFAST #0 caps 08/16/22 [Rx Last Taken Unknown] tramadol 50 mg tablet 50 mg PO Q6H PRN PRN Pain Score 6-10 #30 tabs 08/16/22 [Rx Last Taken Unknown] atorvastatin 20 mg tablet 20 mg PO QHS 09/15/22 [History Last Taken Unknown] cyclobenzaprine 5 mg tablet 5 mg PO TID PRN muscle spasm 09/15/22 [History Last Taken Unknown] magnesium hydroxide 400 mg/5 mL oral suspension (Milk of Magnesia) 30 ml PO DAILY PRN constipation 09/15/22 [History Last Taken Unknown] menthol 4 % topical gel (Biofreeze (menthol)) 1 applic topical BID PRN pain 09/15/22 [History Last Taken Unknown] multivitamin with iron-mineral (Super Multiple tablet) 1 tab PO DAILY 09/15/22 [History Last Taken Unknown] polyethylene glycol 3350 17 gram/dose oral powder (Miralax) 17 g PO DAILY PRN constipation 09/15/22 [History Last Taken Unknown] cephalexin 500 mg capsule 500 mg PO TID 7 days #21 caps 04/14/23 [Rx Last Taken Unknown] ondansetron 4 mg disintegrating tablet 4 mg PO TID PRN nausea and vomiting #21 tabs 04/14/23 [Rx Last Taken Unknown] Allergy/AdvReac Type Severity Reaction Status Date / Time morphine Allergy Mild confusion Verified 12/23/22 15:39 codeine Allergy Itching Verified 12/23/22 15:39 fentanyl AdvReac confusion Verified 12/23/22 15:39 naproxen AdvReac Other Verified 12/23/22 15:39 Family History Mother Cancer skin Father Cancer prostate Surgical History History of back surgery History of carpal tunnel release of both wrists History of hysterectomy History of left heart catheterization (01/07/18) Social History Smoking Status: Former smoker how long ago did patient quit smokin years ago alcohol intake: never substance use type: does not use caffeine: Yes Type: carbonated beverages Number of servings: 1 ROS ROS Narrative Review of systems: Vital Signs Vital Signs Vital Signs: 04/14/23 01:55 04/14/23 01:59 04/14/23 03:18 Temperature 96.8 F L 96.8 F L Temperature Source Temporal Temporal Pulse Rate 107 H 110 H 103 H Respiratory Rate 16 22 H 22 H Blood Pressure 216/144 H 216/114 H 225/101 H Blood Pressure Mean 168 148 142 Pulse Ox 100 98 93 Oxygen Delivery Method Room Air Room Air 04/14/23 03:22 04/14/23 04:38 04/14/23 03:51 Temperature Temperature Source Pulse Rate 104 H 89 99 Respiratory Rate 24 H 21 H 24 H Blood Pressure 194/114 H 198/99 H 202/109 H Blood Pressure Mean 140 132 140 Pulse Ox 93 92 92 Oxygen Delivery Method Room Air Room Air 04/14/23 05:32 Temperature 98.4 F Temperature Source Pulse Rate 98 Respiratory Rate 16 Blood Pressure 162/99 H Blood Pressure Mean 120 Pulse Ox 94 Oxygen Delivery Method Weight Weight: 160 lb 7.944 oz Body Mass Index (BMI) 26.6 Results Lab / Micro Data 04/14/23 02:00 04/14/23 02:00 Labs: Laboratory Results - last 24 hr 04/14/23 02:00: WBC 19.4 H, RBC 5.91 H, Hgb 15.9 H, Hct 51.3 H, MCV 86.8, MCH 26.9 L, MCHC 31.0 L, RDW Std Deviation 44.0 H, RDW Coeff of Gerhard 13.8, Plt Count 366, MPV 9.9, Immature Gran % (Auto) 0.600, Neut % (Auto) 88.6 H, Lymph % (Auto) 8.2 L, [place] % (Auto) 2.2, Eos % (Auto) 0.2, Baso % (Auto) 0.2, Absolute Neuts (auto) 17.2 H, Absolute Lymphs (auto) 1.59, Nucleated RBC % 0, Sodium 137, Potassium 4.2, Chloride 101, Carbon Dioxide 24.0, Anion Gap 12, BUN 16, Creatinine 1.05 H, Estim Creat Clear Calc 50.55, Est GFR (MDRD) Af Amer 67, Est GFR (MDRD) Non-Af 55 L, BUN/Creatinine Ratio 15.2, Glucose 312 H, Calcium 10.1, Total Bilirubin 1.20 H, Direct Bilirubin 0.17, AST 28, ALT 19, Alkaline Phosphatase 127 H, Total Protein 9.1 H, Albumin 4.4, Globulin 4.7 H, Lipase 21 04/14/23 03:10: Ammonia 41.0 H 04/14/23 04:35: Urine Color Yellow, Urine Clarity Sl. Cloudy, Urine pH 7.0, Ur Specific [place] 1.010, Urine Protein 500 H, Urine Glucose (UA) 1000 H, Urine Ketones 50 H, Urine Occult Blood 25 H, Urine Nitrite Negative, Urine Bilirubin Negative, Urine Urobilinogen Normal, Ur Leukocyte Esterase 25 H, Urine RBC 0 SEEN, Urine WBC 5-10 SEEN, Ur Squamous Epith Cells 0 SEEN, Urine Bacteria 3+, Urine Mucus 0 SEEN Imaging Radiology Impression Abdomen/Pelvis CT 04/14/23 04:20 IMPRESSION: 1. Wall thickening of the rectum probably due to proctitis. Rectal mass not completely excluded. Recommend direct observation. 2. Mild fat stranding adjacent to the second portion the duodenum and head of the pancreas. Correlate with laboratory values to evaluate for pancreatitis. 3. Coronary artery disease. 4. Hysterectomy. 5. Left total hip arthroplasty. Components appear well seated. 6. Numerous diverticula without diverticulitis. 7. Subsegmental atelectasis right lung base. 8. Diffuse fatty infiltration of the pancreas. 9. Old bilateral superior and inferior pubic rami fractures. Electronically Signed: Fabián Marcos MD at 4:55 EST , Assessment & Plan Assessment/Plan (1) Proctitis: (2) Rectal mass: (3) Acute cystitis without hematuria: (4) Sepsis: QUALIFIERS: Sepsis type: sepsis due to unspecified organism Sepsis acute organ dysfunction status: without acute organ dysfunction Qualified Code(s): A41.9 - Sepsis, unspecified organism (5) Pancreatitis: QUALIFIERS: Acute pancreatitis complication: unspecified Chronicity: acute Pancreatitis type: idiopathic Qualified Code(s): K85.00 - Idiopathic acute pancreatitis without necrosis or infection (6) Hypertensive urgency: PLAN: Plan 1. CT scan of the abdomen and pelvis was positive for evidence of proctitis; with possible rectal mass (with direct observation/GI consult recommended) with leukocytosis of 19.4 present on admission and clinical evidence of Sepsis with patient dropping her blood pressures into the 70 mm Hg systolic range around 7:00 AM - Admit to ICU. Continue broad-spectrum antibiotics and await culture and sensitivity data. Give Tylenol prn [id number] (level 1-5/10) pain or fever. Give Dilaudid IV prn for severe (level 6-10/10) pain. Second lactate ordered as per Sepsis protocol. Finally, we will consult Dr. Huang of gastroenterology to see this patient on-rounds in the AM for further recommendations regarding possible endoscopy with help appreciated in advance. 2. Acute cystitis; without hematuria compounding #1 - Continue IV Zosyn also initiated for #1 and await culture and sensitivity data. 3. Acute Pancreatitis with fatty infiltration of the pancreas and mild fat stranding of the second portion of the duodenum and the head of the pancreas with frequent nausea and vomiting complicating #1 & #2 - Keep NPO except for sips, ice chips and medications. Check daily lipase. Check Lipid Profile to evaluate for possible hypertriglyceridemia. Give Zofran IV prn nausea plus give prn IM Phenergan for breakthrough nausea and vomiting. 4. Hypertensive urgency with blood pressure of 216/144 mm Hg present on admission - Resolved with patient given antihypertensives and pain medications that may have contributed to precipitous decrease in blood pressure. Hold scheduled antihypertensives in light of #1. 5. DM-2; uncontrolled with hyperglycemia of 312 mg/dL present on admission - NPO except for sips, ice chips and medications for now. Check FSBS q. 6 hours plus lowest intensity SS. Check HgbA1c. 6. Recent admission here on 12/23/2022 after she had a mechanical fall followed by a syncopal event with a subsequent Left hip fracture with ORIF done but she did require ECF for rehabilitation with recent discharge from facility back home providing the back drop for #1 - #5 - Noted with patient having spent ~3 months at [facility]. PT/OT and case management to see patient on-rounds in AM for further recommendations with help appreciated in advance. 7. Early dementia with bipolar disorder and generalized anxiety disorder - Noted. Continue supportive care and monitor for improvement. 8. Hyperlipidemia - Resume statin and check lipid profile. 9. Overweight; with BMI of 26.7 this admission with BURKE - Weight loss will be recommended. 10. Remote history of tobacco abuse (quit ~1992) - Noted. 11. CAD; s/p NSTEMI (2018) - Stable. Serialize troponin. 12. History of atrial fibrillation - Stable. 13. History of Takotsubo's cardiomyopathy - Stable. 14. CKD; stage III - Stable. 15. History of migraine headaches - Noted. 16. History of opioid withdrawal - Noted. 17. RLS - Continue current treatment. 18. IBS - Stable. 19. Overactive bladder - Current regimen to be continued. 20. History of hysterectomy - Noted. 21. Psoriatic arthritis - Stable. 22. History of diverticulosis - Stable. 23. GERD; with hiatal hernia - Continue PPI IV. 24. Osteoporosis; with history of compression fracture and pubic rami fractures - Noted. 25. OA; with history of back surgery - Noted. 26. DVT prophylaxis - Lovenox 40 mg sq daily plus SCD's. Total time: Approximately 75 minutes. Charges/Coding Visit Charges Inpatient E&M: 48726 Init Hosp L3
[2023-04-14] MEDS: Ceftriaxone 1 GM/50 ML BAG IV (06:17)
[2023-04-14] MEDS: proCHLORPERazine 10 MG/2 ML Vial 5 MG IV (06:21)
--- NOTE | 2023-04-14 07:05 | ED.RN ---
assumed care of pt. during beside reporting bp noted to be low. this is a significant change from bp at 0630 which was 175/98. pt much more calm, sleepy per reporting nurse. fluids open wide open dr aware more new orders recieved.
--- NOTE | 2023-04-14 07:20 | ED.RN ---
after fluids open bp increased some but remains low. second line started and second liter of nshung on pressure bag.
[2023-04-14] MEDS: 0.9% Normal Saline (1000mL) 1,000 ML 999 ML IV ×3 (07:38→22:10)
[2023-04-14 08:04] LABS: Lactic Acid 1.9 mmol/L (0.4-1.9)
[2023-04-14 08:08] LABS: Procalcitonin 0.12 ng/mL (0.00-0.09)
--- NOTE | 2023-04-14 08:20 | ED.RN ---
clarification on fluid times. pt had fluids running at [facility] through prior to 0700. that liter was opened wide open at [address] order d/t low bp. second liter was initated at 0720. MAR not allowing to back chart times d/t time dr placed physical order.
[2023-04-14] MEDS: 0.9% Saline Lock 10 ML Syringe IV (09:39)
[2023-04-14] MEDS: 0.9% Normal Saline (1000mL) 1,000 ML 125 ML IV (09:39)
[2023-04-14 10:33] LABS: Cholesterol 182 mg/dL (200); High Density Lipoprotein 63 mg/dL; Triglycerides 98 mg/dL; Very Low Density Lipoprotein 20 mg/dL (5-40)
--- NOTE | 2023-04-14 10:36 | CASEMGMT ---
RN CM Assessment Face to Face with patient for initial transition planning/care coordination assessment. RN CM introduced self and role at [facility], pt voices understanding. Pt appears confused at this time and was unable to answer this RN CM questions appropriately. Pt called at this time and the pt states that he is agreeable to answering this RN CM questions. Care providers, pharmacy, and demographics verified. Admitting dx: Acute Proctitis, Acute Pancreatitis and UTI PCP: Merlin Specialists: Arben Geller Pharmacy: [facility] Insurance: Kathrin Poeshiela Prescription Benefit: Yes LNOK: Eduardo Benavidez (H), Pam Bernstein (Daughter) Living Arrangements: Pt lives in a mobile home with her and son (40 y/o). Pt has a ramp to enter the home. The pt was recently DC from the [place] [facility] ( states she was in the SNF x 8 months). ADLs/IADLs: Pt states that he assists with pt IADLs. Transportation: Pt has not driven x8 months per the pt . Pt is able to drive the pt. DME: Pt uses a walker at home. Walk-in shower with GB and seat. Pt declines any other DME uses or needs at this time. HHC/SNF: Pt states history of HHC and that the pt has been to the [place] and [facility] in the past. The pt started to get irritated at this time regarding the amount of questions being asked and did not want to further explain or answer any other questions a this time. Plan: TBD. Per the ED MD documentation, the pt was only at home for about a week after being in the [place] [facility] facility and the pt had difficulty receiving her medications that she was getting in the SNF. The pt is only A&Ox1 at this time. GI and nutrition are consulted. CM and/ or SW to follow for DC needs. Sarthak Adhikari RN, CM
[2023-04-14] MEDS: Pantoprazole Sodium 40 MG in 0.9% Normal Saline (100mL MB+) 100 ML 330 MG IV (11:28)
[2023-04-14] MEDS: Enoxaparin 40 MG/0.4 ML Syringe SC (11:28)
[2023-04-14] MEDS: 0.9% Normal Saline (250mL Bag) 250 ML 15 ML IV (11:48)
[2023-04-14] MEDS: Insulin Lispro 100 UNIT/ML INSULN.PEN SC ×3 (11:48→23:18)
[2023-04-14 11:54] LABS: Bedside Glucose 230 mg/dL (74-106)
[2023-04-14] MEDS: Carvedilol 3.125 MG TABLET PO (13:02)
[2023-04-14] MEDS: Celecoxib 200 MG Capsule PO (13:03)
[2023-04-14] MEDS: busPIRone 15 MG TABLET PO ×2 (13:03→21:08)
[2023-04-14] MEDS: Lactulose 20 GM/30 ML UDC 30 GM PO (13:04)
[2023-04-14] MEDS: Gabapentin 100 MG Capsule PO ×2 (13:09→21:08)
[2023-04-14] MEDS: Piperacil/Tazobactam 3.375 GM in 0.9% Normal Saline (50mL MB+) 50 ML IV ×2 (13:09→21:31)
--- NOTE | 2023-04-14 15:08 | PN.HOSP_ITS ---
Reason for Visit Reason for Visit: Nausea/vomiting/abdominal pain Subjective Subjective Mrs. Benavidez is a 67-year-old white female who presented to the emergency department at [facility] on 04/14/2023 in the morning with nausea, vomiting, abdominal pain. She has significant complicated past medical history. She had a recent admission here in December 2022 after she had a mechanical fall with resulting hip fracture and ORIF followed by a syncopal event and was discharged to a SNF for rehabilitation and was discharged from the facility recently. It sounds like she has been home for about a week and that has been difficult for her keeping her medications straight. A few hours prior to presentation she developed generalized abdominal discomfort with bouts of nausea and vomiting and the overall sense of not feeling well. She has had no focal abdominal discomfort. She has had no fevers, chills, chest pain, or shortness of breath. Vital signs on presentation showed temperature of 96.8, pulse rate of 107, initial blood pressure was 216/144 and trended down after she was given narcotics. ED physician suspected that she may be having some withdrawal from her opiates that she had not taken them in about 24 to 48 hours. Respiratory rate was 16 and oxygen saturation were 100% on room. She did have some transient hypotension after she received narcotics and IV fluids for which she was given more IV fluids with resultant normotension following. Her CBC showed a marked leukocytosis with a white count of 19.4, her hemoglobin was elevated way above her baseline of 15.9 with a normal platelet count and a left shift of an 88.6% neutrophilia. I suspect that some of this is related to her depleted volume status on presentation all cell lines are above her baseline. Her chemistry panel is unremarkable other than her creatinine is slightly above her baseline with her baseline being 0.6-0.8 and her current creatinine being 1.05. Her glucose was markedly elevated at 312. Bilirubin slightly elevated at 1.2 however LFTs are otherwise unremarkable. Her ammonia level slightly elevated at 41, lactate was normal and lipase was 21. Her UA was consistent with some dehydration and infection. She had leuk esterase, white cells, and 3+ bacteria. A CT of her abdomen pelvis with IV contrast was performed and showed wall thickening in the rectum suspected related to proctitis versus rectal mass, mild fat stranding adjacent to the second portion of the duodenum, coronary artery disease, hysterectomy, left total hip arthroplasty, numerous diverticuli, right subsegmental atelectasis, diffuse fatty infiltration of the pancreas and old bilateral superior and inferior pubic ramus fractures. Cultures were obtained and IV antibiotics were initiated with Zosyn given the concern for urinary tract infection and proctitis. Fluid boluses were given at 30 cc/kg due to her hypotension and she was given narcotics as there was suspicion she was in some withdrawal at the time of admission. With her transient hypotension she was admitted the IMCU for further monitoring however she does not meet SEP 3 criteria for sepsis. Objective Data Objective Data Vital Signs: Vital Signs Temp Pulse Resp BP Pulse Ox O2 Del Method O2 Flow Rate 98.5 F 90 16 105/56 L 98 Nasal Cannula 2 04/14/23 12:00 04/14/23 15:00 04/14/23 15:00 04/14/23 15:00 04/14/23 15:00 04/14/23 15:00 04/14/23 15:00 Oxygen Flow Rate (L/min) 2 Oxygen Delivery Method Nasal Cannula Weight: 71 kg Body Mass Index (BMI) 26.0 Intake & Output: Intake and Output for Last 24 Hours 04/12/23 04/13/23 04/14/23 23:59 23:59 23:59 Intake Total 2050.25 / 2050.25 Output Total 250 / 250 Balance 1800.25 / 1800.25 Lab / Micro Data 04/15/23 04:15 04/15/23 04:15 Labs: Laboratory Results - last 24 hr 04/14/23 02:00: WBC 19.4 H, RBC 5.91 H, Hgb 15.9 H, Hct 51.3 H, MCV 86.8, MCH 26.9 L, MCHC 31.0 L, RDW Std Deviation 44.0 H, RDW Coeff of Gerhard 13.8, Plt Count 366, MPV 9.9, Immature Gran % (Auto) 0.600, Neut % (Auto) 88.6 H, Lymph % (Auto) 8.2 L, [place] % (Auto) 2.2, Eos % (Auto) 0.2, Baso % (Auto) 0.2, Absolute Neuts (auto) 17.2 H, Absolute Lymphs (auto) 1.59, Nucleated RBC % 0, Sodium 137, Potassium 4.2, Chloride 101, Carbon Dioxide 24.0, Anion Gap 12, BUN 16, Creatinine 1.05 H, Estim Creat Clear Calc 50.55, Est GFR (MDRD) Af Amer 67, Est GFR (MDRD) Non-Af 55 L, BUN/Creatinine Ratio 15.2, Glucose 312 H, Calcium 10.1, Total Bilirubin 1.20 H, Direct Bilirubin 0.17, AST 28, ALT 19, Alkaline Phosphatase 127 H, Total Protein 9.1 H, Albumin 4.4, Globulin 4.7 H, Triglycer ides 98, Cholesterol 182, LDL Cholesterol 99, VLDL Cholesterol 20, HDL Cholesterol 63, Lipase 21 04/14/23 03:10: Ammonia 41.0 H 04/14/23 04:35: Urine Color Yellow, Urine Clarity Sl. Cloudy, Urine pH 7.0, Ur Specific [place] 1.010, Urine Protein 500 H, Urine Glucose (UA) 1000 H, Urine Ketones 50 H, Urine Occult Blood 25 H, Urine Nitrite Negative, Urine Bilirubin Negative, Urine Urobilinogen Normal, Ur Leukocyte Esterase 25 H, Urine RBC 0 SEEN, Urine WBC 5-10 SEEN, Ur Squamous Epith Cells 0 SEEN, Urine Bacteria 3+, Urine Mucus 0 SEEN 04/14/23 07:25: Lactic Acid 1.9, Procalcitonin 0.12 H 04/14/23 11:36: POC Glucose 230 H Radiography Diagnostic Testing: Radiology Impression Abdomen/Pelvis CT 04/14/23 04:20 IMPRESSION: 1. Wall thickening of the rectum probably due to proctitis. Rectal mass not completely excluded. Recommend direct observation. 2. Mild fat stranding adjacent to the second portion the duodenum and head of the pancreas. Correlate with laboratory values to evaluate for pancreatitis. 3. Coronary artery disease. 4. Hysterectomy. 5. Left total hip arthroplasty. Components appear well seated. 6. Numerous diverticula without diverticulitis. 7. Subsegmental atelectasis right lung base. 8. Diffuse fatty infiltration of the pancreas. 9. Old bilateral superior and inferior pubic rami fractures. Electronically Signed: Fabián Marcos MD at 4:55 EST , Assessment & Plan Assessment/Plan (1) Acute cystitis without hematuria: (2) Rectal mass: (3) Hyperammonemia: (4) Toxic metabolic encephalopathy: (5) Opiate dependence: (6) Leukocytosis: (7) Hyperglycemia: (8) Proctitis: PLAN: Plan Acute urinary tract infection -Sepsis is ruled out as patient does not meet criteria per sep 3 criteria --Lactic acid was normal, no endorgan damage identified -Blood and urine cultures are pending -Continue Zosyn -Transition antibiotics as culture and sensitivities result -Patient was given IV fluids at 30 cc/kg of body weight -She did have transient hypotension but blood pressures have normalized -Initially thought this may be related to infection however she was also given IV narcotics and this may have also contributed -Blood pressures are currently stable after IV fluids -Continue to monitor in ICU and transition if remains stable overnight Proctitis versus rectal mass -Continue Zosyn -GI is following Hyperammonemia -mild at 41 and I doubt contributing to encephalopathy considerably however I will give for lactulose x 1 and see if this helps her mentation -She does not have history of cirrhosis or any significant liver pathology on her CT Toxic/metabolic encephalopathy -Suspect multifactorial related to medications, infection, potentially hyperammonemia -Check TSH Leukocytosis -See above -Also suspect some dehydration is contributing as all cell lines are elevated from baseline Elevated serum creatinine -Baseline recently has been between 0.6 and 0.8 -Serum creatinine admission was 1.05 -IV fluids given -Repeat in a.m. Multiple lytic lesions -Patient has had biopsy that was unremarkable -Following as an outpatient with Dr. Brito -Recommend ongoing outpatient follow-up History of left-sided Prevotella empyema -Does not appear to have any current respiratory pathology History of left intertrochanteric fracture -Surgery done late July 2022 -Patient appears to be on chronic medication for pain -Per discussion with nurse her daughter, who is out of state, reported that her mother is supposed to be weaning off narcotics and there seems to be somewhat of an opiate dependence at this time -Hold Celebrex Opiate dependence -Wean oxycodone slowly to avoid withdrawal symptoms DM-2 -Hold home oral antihyperglycemics -Blood sugars markedly elevated on admission -Continue SSI -Accu-Cheks as ordered -If remains elevated may need additional medication and will check A1c Hypertension -Hold home carvedilol and lisinopril now for soft blood pressures on admission Hyperlipidemia -Continue home statin Osteoporosis/vitamin D deficiency -Continue vitamin D supplementation and Fosamax CKD stage IIIb -Renal function is completely normalized at 0.67 -Suspect patient may be slightly volume overloaded and this is not her baseline renal function -Continue Lasix -Repeat BMP in a.m. GERD -Continue home PPI Urinary incontinence -Hold oxybutynin as this could cause increased confusion -Would recommend discontinuation of oxybutynin altogether at discharge Depression/anxiety -Continue home fluoxetine -Continue home BuSpar DVT prophylaxis -Continue subcu Lovenox CODE STATUS -Full code
[2023-04-14 15:40] LABS: Allen Test Positive; Base Excess -3 mmol/L (-2 to +2); Bicarbonate 22.3 mmol/L (22-26); Blood Gas Specimen Type ART; Mode Not entered; O2 Delivery Device Cannula; PO2 96 mmHG (75-100); SITE R Brach; SO2 97 % (95-99); Total Carbon Dioxide 24 mmol/L; pCO2 38.8 mmHg (35-45); pH 7.37 (7.35-7.45)
[2023-04-14 17:37] LABS: Bedside Glucose 209 mg/dL (74-106)
[2023-04-14] MEDS: oxyCODONE 5 MG Tablet PO ×2 (18:25→21:07)
[2023-04-14] MEDS: Acetaminophen 325 MG Tablet 650 MG PO (18:26)
[2023-04-14] MEDS: 0.9% Normal Saline (1000mL) 1,000 ML 75 ML IV (19:18)
[2023-04-14] MEDS: Fluoxetine HCl 40 MG CAPSULE PO (21:07)
[2023-04-14] MEDS: Atorvastatin Calcium 20 MG Tablet PO (21:08)
[2023-04-14 23:38] LABS: Bedside Glucose 151 mg/dL (74-106)
[2023-04-15] VITALS (25 sets, daily range): BP systolic 90–148; BP diastolic 46–115; PULSE 61–83; RESP 12–20; TEMP 36.2–37.1; O2SAT 91–100; BMI 26.4
[2023-04-15 04:36] LABS: Absolute Lymphocyte Count 2.34 X10^3/uL (0.83-4.51); Absolute Neutrophil Count 7.3 X10^3/uL (2.0-7.7); Basophil# 0.02 X10^3/uL; Basophil% 0.2 % (0-1); Eosinophil# 0.12 X10^3/uL; Eosinophils% 1.1 % (0-5); Hematocrit 38.6 % (37-47); Hemoglobin 11.9 g/dL (12.0-15.0); Lymphocyte # 2.34 X10^3/ul (0.83-4.51); Lymphocyte % 22.3 % (19-41); Mean Corp Hgb Conc 30.8 g/dL (32-36); Mean Corpuscular Hgb 27.7 pg (27.0-32.0); Mean Corpuscular Volume 89.8 fL (81-99); Mean Platelet Vol. 9.2 fl (6.2-12.0); Monocyte# 0.66 X10^3/uL; Monocyte% 6.3 % (0-10); NRBC Flagged by Analyzer 0 % (0-5); Neutrophil % 69.8 % (47-70); Platelet Count 242 K/mm3 (150-450); RBC Distribution Width CV 14.6 % (11.6-14.6); RBC Distribution Width SD 47.8 fl (35.1-43.9); White Blood Count 10.5 K/mm3 (4.4-11.0)
[2023-04-15 04:50] LABS: Phosphorus 3.3 mg/dL (2.5-4.9)
[2023-04-15] MEDS: Piperacil/Tazobactam 3.375 GM in 0.9% Normal Saline (50mL MB+) 50 ML IV ×3 (05:21→22:01)
[2023-04-15] MEDS: Gabapentin 100 MG Capsule PO ×3 (05:21→22:01)
[2023-04-15] MEDS: oxyCODONE 5 MG Tablet PO (05:21)
[2023-04-15 05:47] LABS: Bedside Glucose 129 mg/dL (74-106)
[2023-04-15 06:49] LABS: AST(SGOT) 12 U/L (15-37); Alanine Aminotransfer ALT/SGPT 14 U/L (13-56); Albumin, Serum 3.1 g/dL (3.2-5.0); Alkaline Phosphatase 73 U/L (45-117); Anion Gap 5 (5-15); BUN 22 mg/dL (7-18); BUN/Creat Ratio 23.5 RATIO (10-20); Calcium,Total 7.8 mg/dL (8.5-10.1); Chloride 116 mmol/L (98-107); Creatinine, Serum 0.94 mg/dL (0.55-1.02); EST Glomerular Filtration Rate 63 mL/min (>60); Est Glom Filt Rate - Afr Amer 76 mL/min (>60); Estimated Creatinine Clearance 56.14 ml/min; Globulin 3.2 g/dL (2.2-4.2); Glucose 151 mg/dL (74-106); Lipase 19 U/L (13-75); Magnesium 1.8 mg/dL (1.6-2.6); Potassium 3.8 mmol/L (3.5-5.1); Protein, Total 6.3 g/dL (6.4-8.2); Sodium Level 144 mmol/L (136-145); Thyroid Stim Hormone (TSH) 3.89 uIU/mL (0.358-3.74)
[2023-04-15] MEDS: Multivitamins,Ther W-Minerals Tablet 1 TABLET PO (09:50)
[2023-04-15] MEDS: 0.9% Normal Saline (1000mL) 1,000 ML 75 ML IV ×2 (09:50→22:01)
[2023-04-15] MEDS: busPIRone 15 MG TABLET PO ×2 (09:50→22:01)
[2023-04-15] MEDS: Fluoxetine HCl 40 MG CAPSULE PO ×2 (09:51→22:01)
[2023-04-15] MEDS: Loratadine 10 MG Tablet PO (09:51)
[2023-04-15] MEDS: Tolterodine Tartrate 4 MG CAP.SA PO (09:51)
[2023-04-15] MEDS: Enoxaparin 40 MG/0.4 ML Syringe SC (09:51)
[2023-04-15] MEDS: Pantoprazole Sodium 40 MG in 0.9% Normal Saline (100mL MB+) 100 ML 330 MG IV (10:04)
--- NOTE | 2023-04-15 10:45 | PN.HOSP_ITS ---
Reason for Visit Reason for Visit: Abdominal pain, nausea, vomiting Subjective Subjective Blood pressure was soft overnight and she did receive 1 more liter of IV fluids switch her pressure has responded. Systolics have been in 100s today. Will monitor in the ICU in case there are any more pressure issues however this seems to be improving. Mentation is back to her baseline and she states her abdominal pain is better. No specific complaints today. She does state that she is still following with Dr. Brito and is to be seen at the [facility] in May. Objective Data Objective Data Vital Signs: Vital Signs Temp Pulse Resp BP Pulse Ox O2 Del Method O2 Flow Rate 97.5 F L 77 14 101/61 98 Nasal Cannula 2 04/15/23 08:00 04/15/23 10:00 04/15/23 10:00 04/15/23 10:00 04/15/23 10:00 04/15/23 10:00 04/15/23 10:00 Oxygen Flow Rate (L/min) 2 Oxygen Delivery Method Nasal Cannula Weight: 71.9 kg Body Mass Index (BMI) 26.4 Intake & Output: Intake and Output for Last 24 Hours 04/13/23 04/14/23 04/15/23 23:59 23:59 23:59 Intake Total 4164.00 / 4164.00 1386.25 / 1386.25 Output Total 350 / 350 100 / 100 Balance 3814.00 / 3814.00 1286.25 / 1286.25 Lab / Micro Data 04/15/23 04:15 04/15/23 04:15 Labs: Laboratory Results - last 24 hr 04/14/23 11:36: POC Glucose 230 H 04/14/23 17:16: POC Glucose 209 H 04/14/23 23:17: POC Glucose 151 H 04/15/23 04:15: WBC 10.5, RBC 4.30, Hgb 11.9 L, Hct 38.6, MCV 89.8, MCH 27.7, MCHC 30.8 L, RDW Std Deviation 47.8 H, RDW Coeff of Gerhard 14.6, Plt Count 242, MPV 9.2, Immature Gran % (Auto) 0.300, Neut % (Auto) 69.8, Lymph % (Auto) 22.3, Ritchie % (Auto) 6.3, Eos % (Auto) 1.1, Baso % (Auto) 0.2, Absolute Neuts (auto) 7.3, Absolute Lymphs (auto) 2.34, Nucleated RBC % 0, Sodium 144, Potassium 3.8, Chloride 116 H, Carbon Dioxide 23.0, Anion Gap 5, BUN 22 H, Creatinine 0.94, Estim Creat Clear Calc 56.14, Est GFR (MDRD) Af Amer 76, Est GFR (MDRD) Non-Af 63, BUN/Creatinine Ratio 23.5 H, Glucose 151 H, Calcium 7.8 L, Phosphorus 3.3, Magnesium 1.8, Total Bilirubin 0.50, AST 12 L, ALT 14, Alkaline Phosphatase 73, Total Protein 6.3 L, Albumin 3.1 L, Globulin 3.2, Albumin/Globulin Ratio 1.0, Lipase 19, TSH 3.89 H 04/15/23 05:25: POC Glucose 129 H ABG Data ABG results: ABG 04/14/23 15:36 Specimen Type ART Sample Site R Brach pH 7.37 Bicarbonate Actual 22.3 Total CO2 24 Base Excess -3 L O2 Saturation 97 O2 % 2.0 ABG pCO2 38.8 ABG pO2 96 Vaughn Test Positive O2 Delivery Device Cannula Vent Mode Not entered Physical Exam Const alert, oriented x3, no apparent distress and well nourished; Negative for average body habitus or healthy appearing Constitutional Narrative: Upper middle-aged, white female, lying in bed, mentation is much improved today and she is able to participate in history and give me accurate details, appears comfortable and nontoxic HEENT head/scalp atraumatic and moist oral mucous membranes HEENT Narrative: Dentition is poor, Mallampati is 2-3, no thrush Head and Scalp: normocephalic Resp normal respiratory effort, no retractions, no use of accessory muscles and No clear to auscultation bilaterally Resp Narrative: Diminished at bases bilaterally with few scattered crackles Auscultation: crackles; Negative for rhonchi or wheezes Cardio regular rate, regular rhythm, S1 normal heart sound, S2 normal heart sound, no murmurs, no rub, no gallops and no clicks GI normal to inspection, nondistended, normoactive bowel sounds, soft to palpation and non-tender Extremity no clubbing, cyanosis or edema Extremity Narrative: Pedal pulses are 2+ Neuro oriented x3, moves all extremities and no focal motor deficits Neuro Narrative: Significant generalized weakness noted with patient having decreased ability to perform even simple bed mobility Speech: speech normal Psych affect normal Psych Narrative: Very pleasant, eye contact is good, patient interacts appropriately Assessment & Plan Assessment/Plan (1) Acute cystitis without hematuria: (2) Rectal mass: (3) Hyperammonemia: (4) Toxic metabolic encephalopathy: (5) Opiate dependence: (6) Leukocytosis: (7) Hyperglycemia: (8) Proctitis: PLAN: Plan Acute urinary tract infection -Sepsis is ruled out as patient does not meet criteria per sep 3 criteria -Lactic acid was normal, no endorgan damage identified -Blood and urine cultures remain pending -Continue Zosyn -Transition antibiotics as culture and sensitivities result -Continue to monitor in ICU and transferred to medical floor tomorrow as long as she continues to do well Proctitis versus rectal mass -Continue Zosyn -Patient has never had a colonoscopy -GI is consulting and awaiting input Hyperammonemia -Mental status is back to baseline -No need to repeat -She does not have history of cirrhosis or any significant liver pathology on her CT Toxic/metabolic encephalopathy -Suspect multifactorial related to medications, infection, potentially hyperammonemia -Mild elevation in suspect euthyroid sick with a TSH of 3.89--> no need to check free T4 Leukocytosis -Resolved Elevated serum creatinine -Resolved -Repeat in a.m. Multiple lytic lesions -Patient has had biopsy that was unremarkable -Following as an outpatient with Dr. Theodore -Patient today is able to tell me that she has follow-up at [facility] in May -Recommend ongoing outpatient follow-up History of left-sided Prevotella empyema -Does not appear to have any current respiratory pathology History of left intertrochanteric fracture -Surgery done late July 2022 -Patient appears to be on chronic medication for pain -Per discussion with nurse her daughter, who is out of state, reported that her mother is supposed to be weaning off narcotics and there seems to be somewhat of an opiate dependence at this time -Hold Celebrex Opiate dependence -Wean oxycodone slowly to avoid withdrawal symptoms -Will stop as needed oxycodone 5 mg and keep her on her scheduled oxycodone 3 times daily--> would recommend slow taper with time DM-2 -Hold home oral antihyperglycemics -Blood sugars markedly elevated on admission but fasting this morning was 151 -Continue SSI -Accu-Cheks as ordered -Most recent hemoglobin A1c from 01/02/2023 is 5.0 Hypertension -Continue to hold carvedilol and lisinopril until blood pressure is more stabilized Hyperlipidemia -Continue home statin Osteoporosis/vitamin D deficiency -Continue vitamin D supplementation and Fosamax GERD -Continue home PPI Urinary incontinence -Hold oxybutynin as this could cause increased confusion -Would recommend discontinuation of oxybutynin altogether at discharge Depression/anxiety -Continue home fluoxetine -Continue home BuSpar DVT prophylaxis -Continue subcu Lovenox CODE STATUS -Full code Charges/Coding Visit Charges Inpatient E&M: 84381 Subs Hosp L2
[2023-04-15] MEDS: 0.9% Normal Saline (250mL Bag) 250 ML 15 ML IV (13:38)
[2023-04-15 13:55] LABS: Bedside Glucose 131 mg/dL (74-106)
[2023-04-15] MEDS: Bisacodyl 5 MG Tablet 20 MG PO (15:39)
--- NOTE | 2023-04-15 16:58 | EX.PCM.CON.G ---
HPI Consult Data Date of Consult: 04/15/23 HPI Narrative Reason for Consultation: Abnormal CAT scan HPI Narrative: LUBA MARSH, is a 67 F who presented to the ED with altered mental status followed by nausea, vomiting and abdominal pain. She has a past medical history of essential hypertension, CAD; s/p NSTEMI, history of atrial fibrillation, history of Takotsubo's cardiomyopathy, CKD. She is also having progressive problems with both her hips requiring 2 hip surgeries and a repeat hip surgery after the imaging her right hip from another fall. In the ED she was diagnosed with possible hypertensive urgency and was giving medicines to decrease her blood pressure. However she developed hypotension in the ED and it was not known whether it was from the hypertensive medicines or urinary tract infection. In the ER her CT scan of the abdomen and pelvis was positive for evidence of proctitis; with possible rectal mass (with direct observation/GI consult recommended) and mild fat stranding of the second portion of the duodenum and the head of the pancreas consistent with pancreatitis complicated by diffuse fatty infiltration of the pancreas. She denies any alcohol or street drugs. To her knowledge she has not been placed on any medicines associated with pancreatitis. There were no gallstones seen in the gallbladder or hepatobiliary system. Laboratory evidence of leukocytosis of 19.4 likely secondary to UTI which is a lot better after being treated with IV antibiotics and hyperglycemia of 312 mg/dL present on admission with a highly elevated blood pressure 216/144 mm Hg present on admission due to suspected hypertensive urgency. [facility] Medical History Anxiety Atrial fibrillation Back pain due to injury Bipolar disorder Closed intertrochanteric fracture of left hip Dementia Depression Essential (primary) hypertension Former smoker GERD (gastroesophageal reflux disease) Hearing loss, right Hiatal hernia High cholesterol Hyperlipidemia Injury of head and neck Irritable bowel Migraines Nonobstructive atherosclerosis of coronary artery NSTEMI (non-ST elevated myocardial infarction) (01/06/18) Obesity Psoriatic arthritis Restless legs Sleep apnea Takotsubo syndrome Type 2 diabetes mellitus Home Medications alendronate 70 mg tablet 70 mg PO SA osteoporosis 01/06/18 [History Last Taken Unknown] buspirone 7.5 mg tablet 15 mg PO BID anxiety 01/06/18 [History Last Taken Unknown] fluoxetine 40 mg capsule 40 mg PO BID anxiety 11/25/18 [History Last Taken Unknown] glipizide 5 mg tablet 10 mg PO DAILY antidiabetic 01/06/18 [History Last Taken Unknown] omeprazole 20 mg tablet,delayed release 20 mg PO DAILY GERD 01/06/18 [History Last Taken Unknown] carvedilol 3.125 mg tablet 3.125 mg PO BID #90 tabs 07/10/18 [Rx Last Taken Unknown] ergocalciferol (vitamin D2) 1,250 mcg (50,000 unit) capsule 50,000 unit PO .COMPLEX supplement 02/12/19 [History Last Taken Unknown] lisinopril 20 mg tablet 20 mg PO DAILY #30 tabs 02/15/19 [Rx Last Taken Unknown] cephalexin 500 mg capsule 500 mg PO TID 7 days #21 caps 04/14/23 [Rx Last Taken Unknown] gabapentin 100 mg capsule 100 mg PO Q8H pain 04/14/23 [History Last Taken Unknown] meloxicam 7.5 mg tablet 7.5 mg PO DAILY pain 04/14/23 [History Last Taken Unknown] ondansetron 4 mg disintegrating tablet 4 mg PO TID PRN nausea and vomiting #21 tabs 04/14/23 [Rx Last Taken Unknown] oxybutynin chloride 10 mg tablet,extended release 24 hr 20 mg PO DAILY bladder 04/14/23 [History Last Taken Unknown] oxycodone 5 mg tablet 5 mg PO .COMPLEX pain 04/14/23 [History Last Taken Unknown] simvastatin 40 mg tablet 40 mg PO DAILY cholesterol 04/14/23 [History Last Taken Unknown] turmeric 1 cap PO DAILY supplement 04/14/23 [History Last Taken Unknown] Allergy/AdvReac Type Severity Reaction Status Date / Time morphine Allergy Mild confusion Verified 12/23/22 15:39 codeine Allergy Itching Verified 12/23/22 15:39 fentanyl AdvReac confusion Verified 12/23/22 15:39 naproxen AdvReac Other Verified 12/23/22 15:39 Family History Mother Cancer skin Father Cancer prostate Surgical History History of back surgery History of carpal tunnel release of both wrists History of hysterectomy History of left heart catheterization (01/07/18) Social History Smoking Status: Former smoker how long ago did patient quit smokin years ago alcohol intake: never substance use type: does not use caffeine: Yes Type: carbonated beverages Number of servings: 1 ROS ROS Narrative Pertinent positives and pertinent negatives as noted in HPI. All other systems were reviewed and are negative Physical Exam Narrative Well-developed chronically ill-appearing woman who is laying on her side, mildly sedated, no respiratory distress. HEENT: Facial edema has resolved. Mucous membranes moist. Nasal cannula in place. Lungs are clear bilaterally, no wheezes rales or rhonchi. Heart tachycardic S1-S2 Abdomen is soft nontender Extremities have trace pitting edema. Neuro nonfocal. Still has great difficulty turning sitting up on her own because of pain and/or motivation. Lab / Micro Data 04/15/23 04:15 04/15/23 04:15 Labs: Laboratory Results - last 24 hr 04/14/23 17:16: POC Glucose 209 H 04/14/23 23:17: POC Glucose 151 H 04/15/23 04:15: WBC 10.5, RBC 4.30, Hgb 11.9 L, Hct 38.6, MCV 89.8, MCH 27.7, MCHC 30.8 L, RDW Std Deviation 47.8 H, RDW Coeff of Gerhard 14.6, Plt Count 242, MPV 9.2, Immature Gran % (Auto) 0.300, Neut % (Auto) 69.8, Lymph % (Auto) 22.3, Grady % (Auto) 6.3, Eos % (Auto) 1.1, Baso % (Auto) 0.2, Absolute Neuts (auto) 7.3, Absolute Lymphs (auto) 2.34, Nucleated RBC % 0, Sodium 144, Potassium 3.8, Chloride 116 H, Carbon Dioxide 23.0, Anion Gap 5, BUN 22 H, Creatinine 0.94, Estim Creat Clear Calc 56.14, Est GFR (MDRD) Af Amer 76, Est GFR (MDRD) Non-Af 63, BUN/Creatinine Ratio 23.5 H, Glucose 151 H, Calcium 7.8 L, Phosphorus 3.3, Magnesium 1.8, Total Bilirubin 0.50, AST 12 L, ALT 14, Alkaline Phosphatase 73, Total Protein 6.3 L, Albumin 3.1 L, Globulin 3.2, Albumin/Globulin Ratio 1.0, Lipase 19, TSH 3.89 H 04/15/23 05:25: POC Glucose 129 H 04/15/23 12:00: POC Glucose 131 H Micro: Microbiology 04/14/23 04:35 Urine Catheter - Catheter Urine Culture - Preliminary Presumptive E. coli Assessment & Plan Assessment/Plan (1) Proctitis: (2) Rectal mass: (3) Acute cystitis without hematuria: (4) Sepsis: QUALIFIERS: Sepsis type: sepsis due to unspecified organism Sepsis acute organ dysfunction status: without acute organ dysfunction Qualified Code(s): A41.9 - Sepsis, unspecified organism (5) Pancreatitis: QUALIFIERS: Chronicity: acute Pancreatitis type: idiopathic Acute pancreatitis complication: unspecified Qualified Code(s): K85.00 - Idiopathic acute pancreatitis without necrosis or infection (6) Hypertensive urgency: PLAN: Plan 67-year-old comes in with her mental status followed by nausea, vomiting likely secondary to hypertensive urgency and possible underlying urinary tract infection. She had imaging of inflammation versus inflammatory mass in the sigmoid and rectal area. CT scan of the abdomen and pelvis was positive for evidence of proctitis; with possible rectal mass differential diagnosis does include underlying malignancy, ischemic colitis, stercoral ulcer. Patient has never had a colonoscopy in the past. Recommend colonoscopy with direct visualization. She was explained alternatives, risk, benefits including not withstanding bleeding, infection, sepsis, perforation, need for emergent surgery and . She will have an ASA of 3. Possible acute Pancreatitis with fatty infiltration of the pancreas and mild fat stranding of the second portion of the duodenum and the head of the pancreas with frequent nausea and vomiting. Differential diagnosis does include ischemic injury to the duodenum causing local inflammation in the pancreas and fat planes. There is no signs of choledocholithiasis or cholelithiasis. Agree with checking Lipid Profile to evaluate for possible hypertriglyceridemia. I will check IgG4 to see if there is any signs of autoimmune pancreatitis along with check an ESR, CRP, ANCA and NORMA antibodies Charges/Coding Visit Charges Inpatient E&M: 21124 Init Hosp L3
[2023-04-15 17:07] LABS: Bedside Glucose 131 mg/dL (74-106)
[2023-04-15] MEDS: Polyethylene Glycol 3350 BOWEL PREP 1 BOTTLE PO (17:55)
[2023-04-15] MEDS: Atorvastatin Calcium 20 MG Tablet PO (22:01)
[2023-04-15 22:21] LABS: Bedside Glucose 136 mg/dL (74-106)
[2023-04-16] VITALS (26 sets, daily range): BP systolic 114–198; BP diastolic 59–100; PULSE 72–100; RESP 13–20; TEMP 36.6–37.8; O2SAT 91–98; BMI 26.9
--- NOTE | 2023-04-16 | COLBX_PTH ---
PATHOLOGY RESULTS PATIENT: LUBA MARSH LOC: MS3 U#:[id number] AGE/SX: 67/F [place] [facility] [place]: Dr. Coy Murcia MD : [id number] BED: 1 DIS: 04/18/2023 SPEC #: [id number] RECD: 04/16/23 14:07 STATUS: TRICIA DAVILA #: [id number] DANIKA: 04/16/23 00:[address]: Christopher Huang DEPT: SURGICAL PATHOLOGY RECD BY: Wyatt Dunbar ENTERED: 04/17/23 08:55 SP TYPE: COLON BX OTHR DR: Dr. Eliazar Chapman, DO Dr. Coy Noel, DO MD Dr. Tamiko Mccoy, DO Dr. Christopher Huang, Tissues: COLON BIOPSY Sigmoid colon biopsy Rectum, NOS Procedures: Surgery Specimen Level IV Comments: @ Ordering doctor for SUIV edited from to @ by GRICEL at 04/17/23 1416 @ Submitting doctor edited from to @ by ESTEFANIOD at 04/17/23 1417 HEADER OPERATION: Colonoscopy with polyp biopsy and biopsy PRE-OP DIAGNOSIS: Proctitis TISSUE SUBMITTED: A - Polyp biopsy hepatic flexure, B - Sigmoid colon polyp biopsy, C - Rectal biopsy MICROSCOPIC DIAGNOSIS A. Colonic polyp at hepatic flexure, biopsy: Tubular adenoma. B. Sigmoid colon polyp, biopsy: Fragments of tubular adenoma. C. Rectum, biopsy: No pathologic change. AM:phillip 04/18/2023 MICROSCOPIC DESCRIPTION Slides are reviewed. GROSS DESCRIPTION A - Received in fixative is one container labeled with the patient's name and designated polyp biopsy hepatic flexure. The specimen consists of one irregular fragment of light bermudez soft tissue that measures 0.4 x 0.3 x 0.1 cm. The specimen is totally submitted in one cassette. B - Received in fixative is one container labeled with the patient's name and designated sigmoid colon polyp biopsy. The specimen consists of one irregular fragment of light bermudez soft tissue that measures 0.2 x 0.2 x 0.1 cm. The specimen is totally submitted in one cassette. C - Received in fixative is one container labeled with the patient's name and designated rectal biopsy. The specimen consists of one irregular fragment of light bermudez soft tissue that measures 0.5 x 0.3 x 0.1 cm. The specimen is totally submitted in one cassette. / Roly 04/17/2023 TC:5 CPT: 02912 x3
[2023-04-16] MEDS: Gabapentin 100 MG Capsule PO ×3 (05:41→21:01)
[2023-04-16] MEDS: Piperacil/Tazobactam 3.375 GM in 0.9% Normal Saline (50mL MB+) 50 ML IV ×3 (05:42→20:58)
[2023-04-16 05:47] LABS: Absolute Lymphocyte Count 2.15 X10^3/uL (0.83-4.51); Absolute Neutrophil Count 5.8 X10^3/uL (2.0-7.7); Basophil# 0.02 X10^3/uL; Basophil% 0.2 % (0-1); Eosinophil# 0.23 X10^3/uL; Eosinophils% 2.6 % (0-5); Hematocrit 35.8 % (37-47); Hemoglobin 10.8 g/dL (12.0-15.0); Lymphocyte # 2.15 X10^3/ul (0.83-4.51); Lymphocyte % 24.6 % (19-41); Mean Corp Hgb Conc 30.2 g/dL (32-36); Mean Corpuscular Hgb 27.1 pg (27.0-32.0); Mean Corpuscular Volume 89.9 fL (81-99); Mean Platelet Vol. 9.3 fl (6.2-12.0); Monocyte# 0.49 X10^3/uL; Monocyte% 5.6 % (0-10); NRBC Flagged by Analyzer 0 % (0-5); Neutrophil # 5.83 X10^3/uL (2.7-7.7); Neutrophil % 66.7 % (47-70); Platelet Count 182 K/mm3 (150-450); RBC Distribution Width CV 14.4 % (11.6-14.6); RBC Distribution Width SD 47.1 fl (35.1-43.9); Red Blood Count 3.98 M/mm3 (4.2-5.4); White Blood Count 8.8 K/mm3 (4.4-11.0)
[2023-04-16 06:20] LABS: Anion Gap 4 (5-15); BUN 13 mg/dL (7-18); Calcium,Total 8.4 mg/dL (8.5-10.1); Chloride 120 mmol/L (98-107); Creatinine, Serum 0.72 mg/dL (0.55-1.02); EST Glomerular Filtration Rate 85 mL/min (>60); Est Glom Filt Rate - Afr Amer 103 mL/min (>60); Estimated Creatinine Clearance 66.55 ml/min; Glucose 115 mg/dL (74-106); Potassium 3.1 mmol/L (3.5-5.1); Sodium Level 146 mmol/L (136-145)
[2023-04-16] MEDS: oxyCODONE 5 MG Tablet PO ×3 (06:26→20:59)
--- NOTE | 2023-04-16 07:29 | PN.HOSP_ITS ---
Reason for Visit Reason for Visit: Diagnoses Sepsis, unspecified organism (04/14/23) Elevated white blood cell count, unspecified (04/14/23) Disorder of urea cycle metabolism, unspecified (04/14/23) Opioid dependence, uncomplicated (04/14/23) Other toxic encephalopathy (04/14/23) Hypertensive urgency (04/14/23) Other specified diseases of anus and rectum (04/14/23) Idiopathic acute pancreatitis without necrosis or infection (04/14/23) Acute cystitis without hematuria (04/14/23) Hyperglycemia, unspecified (04/14/23) Subjective Subjective Patient is a 67-year-old lady who presented with abdominal pain with nausea and vomiting. CT of the abdomen obtained was consistent with proctitis admitted for subsequent inpatient management Objective Data Objective Data Vital Signs: Vital Signs Temp Pulse Resp BP Pulse Ox O2 Del Method O2 Flow Rate 97.9 F 89 20 H 165/73 H 94 Room Air 2 04/16/23 04:00 04/16/23 07:00 04/16/23 07:00 04/16/23 07:00 04/16/23 07:00 04/16/23 07:00 04/15/23 10:00 Oxygen Flow Rate (L/min) 2 Oxygen Delivery Method Room Air Weight: 73.3 kg Body Mass Index (BMI) 26.9 Intake & Output: Intake and Output for Last 24 Hours 04/14/23 04/15/23 04/16/23 23:59 23:59 23:59 Intake Total 4164.00 / 4164.00 3753.00 / 3753.00 50 / 50 Output Total 350 / 350 500 / 500 Balance 3814.00 / 3814.00 3253.00 / 3253.00 50 / 50 Lab / Micro Data 04/16/23 05:32 04/16/23 05:32 Labs: Laboratory Results - last 24 hr 04/15/23 12:00: POC Glucose 131 H 04/15/23 16:50: POC Glucose 131 H 04/15/23 21:58: POC Glucose 136 H 04/16/23 05:32: WBC 8.8, RBC 3.98 L, Hgb 10.8 L, Hct 35.8 L, MCV 89.9, MCH 27.1, MCHC 30.2 L, RDW Std Deviation 47.1 H, RDW Coeff of Gerhard 14.4, Plt Count 182, MPV 9.3, Immature Gran % (Auto) 0.300, Neut % (Auto) 66.7, Lymph % (Auto) 24.6, [place] % (Auto) 5.6, Eos % (Auto) 2.6, Baso % (Auto) 0.2, Absolute Neuts (auto) 5.8, Absolute Lymphs (auto) 2.15, Nucleated RBC % 0, Sodium 146 H, Potassium 3.1 L, Chloride 120 H, Carbon Dioxide 22.0, Anion Gap 4 L, BUN 13, Creatinine 0.72, Estim Creat Clear Calc 66.55, Est GFR (MDRD) Af Amer 103, Est GFR (MDRD) Non-Af 85, BUN/Creatinine Ratio 18.0, Glucose 115 H, Calcium 8.4 L Micro: Microbiology 04/14/23 04:35 Urine Catheter - Catheter Urine Culture - Preliminary Presumptive E. coli Physical Exam Narrative GENERAL: cooperative HEENT: Atraumatic; normocephalic EYES; Anicteric, Normal Conjunctiva NECK; supple, normal thyroid, RESPIRATORY: Diminished to auscultation CARDIOVASCULAR: Regular S1 S2, GI: soft, normoactive bowel sounds, : No Renal angle tenderness; EXTREMITIES: No edema, no clubbing, MUSCULOSKELETAL: no muscle wasting NEURO: Awake; no lateralizing signs. SKIN: No Rash PSYCH; Flat affect Assessment & Plan Assessment/Plan (1) Acute cystitis without hematuria: (2) Proctitis: PLAN: Plan Patient is a 67-year-old lady who presented with abdominal pain with nausea and vomiting. CT of the abdomen obtained was consistent with proctitis admitted for subsequent inpatient management 1. Acute proctitis ?Wall thickening of the rectum probably due to proctitis. Rectal mass not completely excluded. Patient started on broad-spectrum antibiotic therapy. Admitted to the intensive care unit due to relative hypotension on admission with consultation placed to Dr. Huang 2. Sepsis ? Secondary to acute proctitis as well as cystitis. Managed per protocol 3. Acute cystitis without hematuria ? Patient is on Zosyn cultures pending 4. Possible pancreatitis ? Patient was found to haveFatty infiltration of the pancreas and mild fat stranding of the second portion of the duodenum and the head of pancreas. Patient treated symptomatically 5. Acute hypertensive urgency ? Patient blood pressure has improved 6. Diabetes mellitus type II -patient's oral 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s held. Placed on long acting insulin, Accu-Cheks a.c. and at bedtime and covered with sliding scale insulin 7. Recent fall with hip fracture ? In December 2022 underwent ORIF 8. GERD ? On PPI 9.. Dyslipidemia -Patient is on statin therapy, continued at home dose 10. Coronary artery disease ? With history of previous non-STEMI remained stable with no ischemic symptoms 11. Paroxysmal A-fib ? Rate controlled 12. History of Takotsubo cardiomyopathy ? Remains stable 13. Hypokalemia -Corrected per protocol 14. History of migraine headaches ? Currently asymptomatic 15. Restless leg syndrome ? Remains stable 17. Irritable bowel syndrome ? Stable 18. Overactive bladder ? Plan is to continue with oxybutynin 19. Psoriatic arthritis ? Remains stable 20. Osteoporosis -; with history of compression fracture and pubic rami fractures 21. DVT prophylaxis - Lovenox 40 mg sq daily plus SCD's. Time spent in the patient's overall evaluation,decision-making process, review of diagnostic data, adjustment of management, discussion with other providers, nursing nursing and ancillary staff involved in patient's care documentation, 50 Minutes Charges/Coding Visit Charges Inpatient E&M: 74511 Subs Hosp L3
[2023-04-16] MEDS: Pantoprazole Sodium 40 MG in 0.9% Normal Saline (100mL MB+) 100 ML 330 MG IV (09:46)
[2023-04-16] MEDS: 0.9% Normal Saline (1000mL) 1,000 ML 75 ML IV ×2 (10:23→14:46)
--- NOTE | 2023-04-16 11:10 | CASEMGMT ---
Addendum entered by Marissa Adhikari 04/16/23 14:35: Pt recently returned to the floor from procedure. Pt is A&Ox4 at this time and is agreeable to answering this RN JULISSA questions. Pt states that she is active with [facility]. Email sent to [facility] Present at this time and Branden April confirms that this pt is active with their Palliative care. Pt also states that she recently started meals on wheels. At this time, this RN CM asked the pt goal is regarding discharge. Pt refuses SNF at this time. Pt states that she wants to go home with her family at time of DC. This RN CM asked if the pt would be interested in HHC and the pt declined this and stated that my son and can help me at home. Pt was then educated with the benefits that home health SN, PT, and OT would provide. This RN CM also reviewed the PT note with the pt and what the PT was recommending. After this discussion, the pt was still declining HHC. This RN CM gave the pt my contact information incase the pt decided to change her mind. This RN CM to follow to ensure safe DC. DAVIS Gomes updated on this pt conversation. Original Note: RN CM to pt room at this time for DC planning, pt is off of the floor at this time for a colonoscopy. Will f/u with pt once she returns.
--- NOTE | 2023-04-16 13:10 | OP.CCLET_ITS ---
04/16/2023 Andria Cano Re : Colonoscopy procedure for Donna Benavidez Dear Merlin This procedure was performed on Sunday, April 16, 2023. My impressions and recommendations are as follows: Impressions : - Preparation of the colon was fair. - Rectal prolapse. - Congested mucosa in the rectum. Biopsied. - Two 1 to 2 mm polyps in the sigmoid colon and at the hepatic flexure, removed with a cold snare. Resected and retrieved. - Stool in the recto-sigmoid colon, in the sigmoid colon, in the descending colon and in the cecum. - The examination was otherwise normal. Recommendations : - [facility]. - Resume regular diet. - Continue present medications. - Await pathology results. - Repeat colonoscopy in 3 years for surveillance. My findings are described in the full procedure note, which is enclosed. If I can be of further assistance, please feel free to contact me at . Sincerely, Christopher Huang, 04/16/2023 1:10:18 PM This report has been signed electronically.
--- NOTE | 2023-04-16 13:10 | OP.COLON_ITS ---
Patient Name: Donna Benavidez Procedure Date: 04/16/2023 12:33 PM Date of : 1955 Age: 67 Procedure: Colonoscopy Indications: Abnormal CT of the GI tract Providers: Christopher Huang DO Medicines: Monitored Anesthesia Care Patient Profile: This is a 67 year old female. Refer to note in patient chart for documentation of history and physical. Last Colonoscopy: none. The patient's first colonoscopy is today. Complications: No immediate complications. Procedure: Pre-Anesthesia Assessment: - Prior to the procedure, a History and Physical was performed, and patient medications and allergies were reviewed. The patient is competent. The risks and benefits of the procedure and the sedation options and risks were discussed with the patient. All questions were answered and informed consent was obtained. Patient identification and proposed procedure were verified by the physician in the pre-procedure area. Mental Status Examination: alert and oriented. Airway Examination: normal oropharyngeal airway and neck mobility. Respiratory Examination: clear to auscultation. CV Examination: normal. Prophylactic Antibiotics: The patient does not require prophylactic antibiotics. Prior Anticoagulants: The patient has taken no anticoagulant or antiplatelet agents. ASA Grade Assessment: II - A patient with mild systemic disease. After reviewing the risks and benefits, the patient was deemed in satisfactory condition to undergo the procedure. The anesthesia plan was to use monitored anesthesia care (MAC). Immediately prior to administration of medications, the patient was re-assessed for adequacy to receive sedatives. The heart rate, respiratory rate, oxygen saturations, blood pressure, adequacy of pulmonary ventilation, and response to care were monitored throughout the procedure. The physical status of the patient was re-assessed after the procedure. After I obtained informed consent, the scope was passed under direct vision. Throughout the procedure, the patient's blood pressure, pulse, and oxygen saturations were monitored continuously. The Colonoscope was introduced through the anus and advanced to the cecum, identified by appendiceal orifice and ileocecal valve. The colonoscopy was performed without difficulty. The patient tolerated the procedure well. The quality of the bowel preparation was fair. Scope In: 12:46:54 PM Scope Withdrawal Time 0 hours 8 minutes 12 seconds Scope Out: 1:01:21 PM Total Procedure Duration Time 0 hours 14 minutes 27 seconds Findings: The perianal and digital rectal examinations were normal. Moderate rectal prolapse was present. An area of moderately congested mucosa was found in the rectum. Biopsies were taken with a cold forceps for histology. Verification of patient identification for the specimen was done. Estimated blood loss was minimal. Two sessile polyps were found in the sigmoid colon and hepatic flexure. The polyps were 1 to 2 mm in size. These polyps were removed with a cold snare. Resection and retrieval were complete. Estimated blood loss: none. Stool was found in the recto-sigmoid colon, in the sigmoid colon, in the descending colon and in the cecum. The exam was otherwise without abnormality. Impression: - Preparation of the colon was fair. - Rectal prolapse. - Congested mucosa in the rectum. Biopsied. - Two 1 to 2 mm polyps in the sigmoid colon and at the hepatic flexure, removed with a cold snare. Resected and retrieved. - Stool in the recto-sigmoid colon, in the sigmoid colon, in the descending colon and in the cecum. - The examination was otherwise normal. Recommendation: - [facility]. - Resume regular diet. - Continue present medications. - Await pathology results. - Repeat colonoscopy in 3 years for surveillance. Procedure Code(s): --- Professional --- 26982, Colonoscopy, flexible; with removal of tumor(s), polyp(s), or other lesion(s) by snare technique 42292, 59, Colonoscopy, flexible; with biopsy, single or multiple CPT copyright 2021 [employer]. All rights reserved. The codes documented in this report are preliminary and upon substation operator apprentice review may be revised to meet current compliance requirements. Christopher Huang DO 04/16/2023 1:10:18 PM This report has been signed electronically. Number of Addenda: 0 Note Initiated On: 04/16/2023 12:33 PM
[2023-04-16 17:44] LABS: Bedside Glucose 87 mg/dL (74-106)
[2023-04-16] MEDS: MELATONIN 3 MG TABLET PO (20:58)
[2023-04-16] MEDS: Atorvastatin Calcium 20 MG Tablet PO (21:00)
[2023-04-16] MEDS: Fluoxetine HCl 40 MG CAPSULE PO (21:00)
[2023-04-16] MEDS: busPIRone 15 MG TABLET PO (21:00)
[2023-04-16] MEDS: Carvedilol 3.125 MG TABLET PO (21:11)
[2023-04-17] VITALS (14 sets, daily range): BP systolic 141–195; BP diastolic 68–92; PULSE 76–86; RESP 13–20; TEMP 36.7–37.1; O2SAT 95–97; BMI 27.5
[2023-04-17 00:25] LABS: Bedside Glucose 97 mg/dL (74-106)
[2023-04-17] MEDS: hydrALAZINE 20 MG/ML Vial 10 MG IV (02:06)
[2023-04-17] MEDS: 0.9% Normal Saline (1000mL) 1,000 ML 75 ML IV (03:56)
[2023-04-17 03:59] LABS: Absolute Lymphocyte Count 2.85 X10^3/uL (0.83-4.51); Absolute Neutrophil Count 7.6 X10^3/uL (2.0-7.7); Basophil# 0.03 X10^3/uL; Basophil% 0.3 % (0-1); Eosinophil# 0.23 X10^3/uL; Hematocrit 39.7 % (37-47); Hemoglobin 12.1 g/dL (12.0-15.0); Lymphocyte # 2.85 X10^3/ul (0.83-4.51); Lymphocyte % 25.2 % (19-41); Mean Corp Hgb Conc 30.5 g/dL (32-36); Mean Corpuscular Hgb 26.7 pg (27.0-32.0); Mean Corpuscular Volume 87.6 fL (81-99); Mean Platelet Vol. 9.1 fl (6.2-12.0); Monocyte% 5.3 % (0-10); NRBC Flagged by Analyzer 0 % (0-5); Neutrophil # 7.59 X10^3/uL (2.7-7.7); Neutrophil % 66.9 % (47-70); Platelet Count 231 K/mm3 (150-450); RBC Distribution Width CV 14.1 % (11.6-14.6); RBC Distribution Width SD 45.1 fl (35.1-43.9); Red Blood Count 4.53 M/mm3 (4.2-5.4); White Blood Count 11.3 K/mm3 (4.4-11.0)
[2023-04-17 04:13] LABS: Anion Gap 4 (5-15); BUN 7 mg/dL (7-18); BUN/Creat Ratio 11.9 RATIO (10-20); Calcium,Total 8.2 mg/dL (8.5-10.1); Chloride 115 mmol/L (98-107); Creatinine, Serum 0.59 mg/dL (0.55-1.02); EST Glomerular Filtration Rate 108 mL/min (>60); Est Glom Filt Rate - Afr Amer 130 mL/min (>60); Estimated Creatinine Clearance 66.55 ml/min; Glucose 101 mg/dL (74-106); Magnesium 1.5 mg/dL (1.6-2.6); Phosphorus 2.3 mg/dL (2.5-4.9); Potassium 2.8 mmol/L (3.5-5.1); Sodium Level 145 mmol/L (136-145)
[2023-04-17] MEDS: Piperacil/Tazobactam 3.375 GM in 0.9% Normal Saline (50mL MB+) 50 ML IV ×3 (05:34→21:15)
[2023-04-17] MEDS: Gabapentin 100 MG Capsule PO ×3 (05:34→21:15)
[2023-04-17] MEDS: oxyCODONE 5 MG Tablet PO ×3 (05:34→21:17)
[2023-04-17 05:56] LABS: Bedside Glucose 100 mg/dL (74-106)
[2023-04-17] MEDS: Potassium Chloride Oral Tablet 20 MEQ 40 MEQ PO (06:43)
[2023-04-17] MEDS: Potassium Phosphate 30 MM in 0.9% Normal Saline (250mL Bag) 250 ML 42 MM IV (06:43)
--- NOTE | 2023-04-17 07:24 | PCM.PN.HOSP ---
Reason for Visit Reason for Visit: Diagnoses Sepsis, unspecified organism (04/14/23) Elevated white blood cell count, unspecified (04/14/23) Disorder of urea cycle metabolism, unspecified (04/14/23) Opioid dependence, uncomplicated (04/14/23) Other toxic encephalopathy (04/14/23) Hypertensive urgency (04/14/23) Other specified diseases of anus and rectum (04/14/23) Idiopathic acute pancreatitis without necrosis or infection (04/14/23) Acute cystitis without hematuria (04/14/23) Hyperglycemia, unspecified (04/14/23) Subjective Subjective Patient underwent colonoscopy findings as below. Urine cultures came back positive for E. coli remains on appropriate antibiotic therapy. Patient has significant electrolyte abnormalities including hypomagnesemia hypokalemia as well as hypophosphatemia Objective Data Objective Data Vital Signs: Vital Signs Temp Pulse Resp BP Pulse Ox O2 Del Method O2 Flow Rate 98.6 F 78 14 195/81 H 96 Nasal Cannula 2 04/17/23 00:00 04/17/23 07:00 04/17/23 07:00 04/17/23 07:00 04/17/23 07:00 04/17/23 07:00 04/17/23 07:00 Oxygen Flow Rate (L/min) 2 Oxygen Delivery Method Nasal Cannula Weight: 75 kg Body Mass Index (BMI) 27.5 Intake & Output: Intake and Output for Last 24 Hours 04/15/23 04/16/23 04/17/23 23:59 23:59 23:59 Intake Total 3753.00 / 3753.00 1515.0 / 1515.0 1037.5 / 1037.5 Output Total 500 / 500 950 / 950 0 / 0 Balance 3253.00 / 3253.00 565.0 / 565.0 1037.5 / 1037.5 Lab / Micro Data 04/17/23 03:53 04/17/23 03:53 Labs: Laboratory Results - last 24 hr 04/16/23 17:27: POC Glucose 87 04/17/23 00:04: POC Glucose 97 04/17/23 03:53: WBC 11.3 H, RBC 4.53, Hgb 12.1, Hct 39.7, MCV 87.6, MCH 26.7 L, MCHC 30.5 L, RDW Std Deviation 45.1 H, RDW Coeff of Gerhard 14.1, Plt Count 231, MPV 9.1, Immature Gran % (Auto) 0.300, Neut % (Auto) 66.9, Lymph % (Auto) 25.2, [place] % (Auto) 5.3, Eos % (Auto) 2.0, Baso % (Auto) 0.3, Absolute Neuts (auto) 7.6, Absolute Lymphs (auto) 2.85, Nucleated RBC % 0, Sodium 145, Potassium 2.8 L, Chloride 115 H, Carbon Dioxide 26.0, Anion Gap 4 L, BUN 7, Creatinine 0.59, Estim Creat Clear Calc 66.55, Est GFR (MDRD) Af Amer 130, Est GFR (MDRD) Non-Af 108, BUN/Creatinine Ratio 11.9, Glucose 101, Calcium 8.2 L, Phosphorus 2.3 L, Magnesium 1.5 L 04/17/23 05:32: POC Glucose 100 Micro: Microbiology 04/14/23 04:35 Urine Catheter - Catheter Urine Culture - Final Presumptive E. coli Physical Exam Narrative GENERAL: cooperative HEENT: Atraumatic; normocephalic EYES; Anicteric, Normal Conjunctiva NECK; supple, normal thyroid, RESPIRATORY: Diminished to auscultation CARDIOVASCULAR: Regular S1 S2, GI: soft, normoactive bowel sounds, : No Renal angle tenderness; EXTREMITIES: No edema, no clubbing, MUSCULOSKELETAL: no muscle wasting NEURO: Awake; no lateralizing signs. SKIN: No Rash PSYCH; Flat affect Assessment & Plan Assessment/Plan (1) Acute cystitis without hematuria: (2) Proctitis: PLAN: Plan Patient is a 67-year-old lady who presented with abdominal pain with nausea and vomiting. CT of the abdomen obtained was consistent with proctitis admitted for subsequent inpatient management 1. Acute proctitis ?Wall thickening of the rectum probably due to proctitis. Rectal mass not completely excluded. Patient started on broad-spectrum antibiotic therapy. Admitted to the intensive care unit due to relative hypotension on admission with consultation placed to Dr. Huang ? 04/17/2023 patient underwent colonoscopy findings and recommendations as below Impressions : - Preparation of the colon was fair. - Rectal prolapse. - Congested mucosa in the rectum. Biopsied. - Two 1 to 2 mm polyps in the sigmoid colon and at the hepatic flexure, removed with a cold snare. Resected and retrieved. - Stool in the recto-sigmoid colon, in the sigmoid colon, in the descending colon and in the cecum. - The examination was otherwise normal. Recommendations : - [facility]. - Resume regular diet. - Continue present medications. - Await pathology results. - Repeat colonoscopy in 3 years for surveillance. 2. Sepsis ? Sepsis ruled out 3. Acute cystitis without hematuria with E. coli ? Patient is on Zosyn cultures pending ? 04/17/2023 urine cultures came back positive for E. coli remains on appropriate antibiotic 4. Possible pancreatitis ? Patient was found to infiltration of the pancreas and mild fat stranding of the second portion of the duodenum and the head of pancreas. Patient treated symptomatically 5. Acute hypertensive urgency ? Patient blood pressure has improved 6. Diabetes mellitus type II -patient's oral 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s held. Placed on long acting insulin, Accu-Cheks a.c. and at bedtime and covered with sliding scale insulin 7. Recent fall with hip fracture ? In December 2022 underwent ORIF 8. GERD ? On PPI 9.. Dyslipidemia -Patient is on statin therapy, continued at home dose 10. Coronary artery disease ? With history of previous non-STEMI remained stable with no ischemic symptoms 11. Paroxysmal A-fib ? Rate controlled 12. History of Takotsubo cardiomyopathy ? Remains stable 13. Hypokalemia -Corrected per protocol 14. History of migraine headaches ? Currently asymptomatic 15. Restless leg syndrome ? Remains stable 17. Irritable bowel syndrome ? Stable 18. Overactive bladder ? Plan is to continue with oxybutynin 19. Psoriatic arthritis ? Remains stable 20. Osteoporosis -; with history of compression fracture and pubic rami fractures 21. DVT prophylaxis - Lovenox 40 mg sq daily plus SCD's. 22; Hypomagnesemia ? Corrected per protocol repeat labs ordered for a.m. 23. Hypophosphatemia ? Corrected per protocol Time spent in the patient's overall evaluation,decision-making process, review of diagnostic data, adjustment of management, discussion with other providers, nursing nursing and ancillary staff involved in patient's care documentation, 50 Minutes Charges/Coding Visit Charges Inpatient E&M: [address] [place] [id number]
[2023-04-17] MEDS: Potassium Chloride Oral Tablet 20 MEQ PO ×2 (08:06→17:28)
[2023-04-17] MEDS: Fluoxetine HCl 40 MG CAPSULE PO ×2 (08:06→21:15)
[2023-04-17] MEDS: Lisinopril 20 MG Tablet PO (08:06)
[2023-04-17] MEDS: Magnesium Chloride 64 MG Delay Rel.Tablet 128 MG PO ×2 (08:06→21:16)
[2023-04-17] MEDS: busPIRone 15 MG TABLET PO ×2 (08:07→21:15)
[2023-04-17] MEDS: Tolterodine Tartrate 4 MG CAP.SA PO (08:07)
[2023-04-17] MEDS: Loratadine 10 MG Tablet PO (08:07)
[2023-04-17] MEDS: Carvedilol 3.125 MG TABLET PO ×2 (08:07→17:29)
[2023-04-17] MEDS: Enoxaparin 40 MG/0.4 ML Syringe SC (08:07)
[2023-04-17] MEDS: Multivitamins,Ther W-Minerals Tablet 1 TABLET PO (08:07)
[2023-04-17] MEDS: Pantoprazole Sodium 40 MG in 0.9% Normal Saline (100mL MB+) 100 ML 330 MG IV (09:36)
[2023-04-17 12:34] LABS: Bedside Glucose 112 mg/dL (74-106)
[2023-04-17] MEDS: Magnesium Sulfate 2 GM in Dextrose 5%-Water (100mL Bag) 100 ML IV (13:01)
[2023-04-17 17:18] LABS: Bedside Glucose 112 mg/dL (74-106)
--- NOTE | 2023-04-17 18:42 | PN.GI_ITS ---
Subjective Subjective Patient underwent colonoscopy yesterday due to findings of possible rectal mass on CT scan abdomen pelvis. She tolerated the procedure without problems. She does not have any bleeding abdominal pain today. Auto mental status is back to normal at that she has been on antibiotic therapy for E. coli urosepsis. Objective Data Objective Data Vital Signs: Vital Signs Temp Pulse Resp BP Pulse Ox O2 Del Method O2 Flow Rate 98.2 F 83 18 162/73 H 97 Room Air 2 04/17/23 17:27 04/17/23 17:27 04/17/23 17:27 04/17/23 17:27 04/17/23 17:27 04/17/23 17:27 04/17/23 07:00 Oxygen Flow Rate (L/min) 2 Oxygen Delivery Method Room Air Weight: 165 lb 5.547 oz Body Mass Index (BMI) 27.5 Intake & Output: Intake and Output for Last 24 Hours 04/15/23 04/16/23 04/17/23 23:59 23:59 23:59 Intake Total 3753.00 / 3753.00 1515.0 / 1515.0 2584.0 / 2584.0 Output Total 500 / 500 950 / 950 350 / 350 Balance 3253.00 / 3253.00 565.0 / 565.0 2234.0 / 2234.0 Lab / Micro Data 04/17/23 03:53 04/17/23 03:53 Labs: Laboratory Results - last 24 hr 04/17/23 00:04: POC Glucose 97 04/17/23 03:53: WBC 11.3 H, RBC 4.53, Hgb 12.1, Hct 39.7, MCV 87.6, MCH 26.7 L, MCHC 30.5 L, RDW Std Deviation 45.1 H, RDW Coeff of Gerhard 14.1, Plt Count 231, MPV 9.1, Immature Gran % (Auto) 0.300, Neut % (Auto) 66.9, Lymph % (Auto) 25.2, [place] % (Auto) 5.3, Eos % (Auto) 2.0, Baso % (Auto) 0.3, Absolute Neuts (auto) 7.6, Absolute Lymphs (auto) 2.85, Nucleated RBC % 0, Sodium 145, Potassium 2.8 L, Chloride 115 H, Carbon Dioxide 26.0, Anion Gap 4 L, BUN 7, Creatinine 0.59, Zaira m Creat Clear Calc 66.55, Est GFR (MDRD) Af Amer 130, Est GFR (MDRD) Non-Af 108, BUN/Creatinine Ratio 11.9, Glucose 101, Calcium 8.2 L, Phosphorus 2.3 L, Magnesium 1.5 L 04/17/23 05:32: POC Glucose 100 04/17/23 11:22: POC Glucose 112 H 04/17/23 16:56: POC Glucose 112 H Micro: Microbiology 04/14/23 04:35 Urine Catheter - Catheter Urine Culture - Final Presumptive E. coli Physical Exam Narrative GENERAL: cooperative HEENT: Atraumatic; normocephalic EYES; Anicteric, Normal Conjunctiva NECK; supple, normal thyroid, RESPIRATORY: Diminished to auscultation CARDIOVASCULAR: Regular S1 S2, GI: soft, normoactive bowel sounds, : No Renal angle tenderness; EXTREMITIES: No edema, no clubbing, MUSCULOSKELETAL: no muscle wasting NEURO: Awake; no lateralizing signs. SKIN: No Rash PSYCH; Flat affect Assessment & Plan Assessment/Plan (1) Proctitis: PLAN: Findings: The perianal and digital rectal examinations were normal. Moderate rectal prolapse was present. An area of moderately congested mucosa was found in the rectum. Biopsies were taken with a cold forceps for histology. Verification of patient identification for the specimen was done. Estimated blood loss was minimal. Two sessile polyps were found in the sigmoid colon and hepatic flexure. The polyps were 1 to 2 mm in size. These polyps were removed with a cold snare. Resection and retrieval were complete. Estimated blood loss: none. Stool was found in the recto-sigmoid colon, in the sigmoid colon, in the descending colon and in the cecum. The exam was otherwise without abnormality. Impression: - Preparation of the colon was fair. - Rectal prolapse. - Congested mucosa in the rectum. Biopsied. - Two 1 to 2 mm polyps in the sigmoid colon and at the hepatic flexure, removed with a cold snare. Resected and retrieved. - Stool in the recto-sigmoid colon, in the sigmoid colon, in the descending colon and in the cecum. - The examination was otherwise normal. Recommendation: - [facility]. - Resume regular diet. - Continue present medications. - Await pathology results. - Repeat colonoscopy in 3 years for surveillance. Patient is doing well. Hemoglobin seems to be stable. (2) Toxic metabolic encephalopathy: (3) Hyperammonemia: Charges/Coding Visit Charges Inpatient E&M: 35873 Subs Hosp L3
[2023-04-17] MEDS: 0.9% Saline Lock 10 ML Syringe IV (20:39)
[2023-04-17] MEDS: Ondansetron 4 MG/2 ML Vial IV (20:39)
[2023-04-17] MEDS: MELATONIN 3 MG TABLET PO (21:15)
[2023-04-17] MEDS: Atorvastatin Calcium 20 MG Tablet PO (21:16)
[2023-04-17 23:32] LABS: Bedside Glucose 120 mg/dL (74-106)
[2023-04-18 02:00] VITALS: BP 135/72; PULSE 80; RESP 16; TEMP 36.6; O2SAT 96
[2023-04-18] MEDS: Piperacil/Tazobactam 3.375 GM in 0.9% Normal Saline (50mL MB+) 50 ML IV (05:19)
[2023-04-18] MEDS: Gabapentin 100 MG Capsule PO (05:21)
[2023-04-18] MEDS: oxyCODONE 5 MG Tablet PO (05:22)
[2023-04-18 05:51] VITALS: BMI 27.5
[2023-04-18 06:05] LABS: Bedside Glucose 115 mg/dL (74-106)
[2023-04-18 06:14] LABS: Absolute Lymphocyte Count 2.09 X10^3/uL (0.83-4.51); Absolute Neutrophil Count 5.3 X10^3/uL (2.0-7.7); Basophil# 0.01 X10^3/uL; Basophil% 0.1 % (0-1); Eosinophil# 0.23 X10^3/uL; Eosinophils% 2.8 % (0-5); Hematocrit 37.6 % (37-47); Lymphocyte # 2.09 X10^3/ul (0.83-4.51); Lymphocyte % 25.6 % (19-41); Mean Corp Hgb Conc 31.9 g/dL (32-36); Mean Corpuscular Hgb 27.8 pg (27.0-32.0); Mean Corpuscular Volume 87.2 fL (81-99); Mean Platelet Vol. 9.6 fl (6.2-12.0); Monocyte# 0.51 X10^3/uL; Monocyte% 6.3 % (0-10); NRBC Flagged by Analyzer 0 % (0-5); Platelet Count 230 K/mm3 (150-450); RBC Distribution Width SD 45.2 fl (35.1-43.9); Red Blood Count 4.31 M/mm3 (4.2-5.4); White Blood Count 8.2 K/mm3 (4.4-11.0)
[2023-04-18 06:31] LABS: Anion Gap 8 (5-15); BUN 7 mg/dL (7-18); BUN/Creat Ratio 12.2 RATIO (10-20); Calcium,Total 8.6 mg/dL (8.5-10.1); Chloride 112 mmol/L (98-107); Creatinine, Serum 0.57 mg/dL (0.55-1.02); EST Glomerular Filtration Rate 111 mL/min (>60); Est Glom Filt Rate - Afr Amer 134 mL/min (>60); Estimated Creatinine Clearance 67.27 ml/min; Glucose 105 mg/dL (74-106); Potassium 3.8 mmol/L (3.5-5.1); Sodium Level 143 mmol/L (136-145)
--- NOTE | 2023-04-18 07:10 | DS.PCM_ITS ---
Providers Date of Admission: 04/14/23 Date of Discharge: 04/18/23 Primary Care Physician: ORESTES Cano Consultations 04/14/23 08:30 Consult: Gastroenterology Routine Consulting Provider: Christopher Huang Reason for Consult: Acute Procititis with suspected Mass on CT. Direct visualization recommend EMERGENT Consult: No MD Notified: Yes Date Notified: 04/14/23 Time Notified: 07:05 Method of Notification: Text Reason For Visit: ACUTE PROCTITIS, ACUTE PANCREATITIS AND UTI Diagnosis Discharge Diagnosis (1) Proctitis: Status: Acute Code(s): K62.89 - Other specified diseases of anus and rectum (2) Toxic metabolic encephalopathy: Status: Acute Code(s): G92.8 - Other toxic encephalopathy (3) Hyperammonemia: Status: Acute Code(s): E72.20 - Disorder of urea cycle metabolism, unspecified Plan Patient is a 67-year-old lady who presented with abdominal pain with nausea and vomiting. CT of the abdomen obtained was consistent with proctitis admitted for subsequent inpatient management 1. Acute proctitis ?Wall thickening of the rectum probably due to proctitis. Rectal mass not completely excluded. Patient started on broad-spectrum antibiotic therapy. Admitted to the intensive care unit due to relative hypotension on admission with consultation placed to Dr. Huang ? 04/17/2023 patient underwent colonoscopy findings and recommendations as below Impressions : - Preparation of the colon was fair. - Rectal prolapse. - Congested mucosa in the rectum. Biopsied. - Two 1 to 2 mm polyps in the sigmoid colon and at the hepatic flexure, removed with a cold snare. Resected and retrieved. - Stool in the recto-sigmoid colon, in the sigmoid colon, in the descending colon and in the cecum. - The examination was otherwise normal. Recommendations : - [facility]. - Resume regular diet. - Continue present medications. - Await pathology results. - Repeat colonoscopy in 3 years for surveillance. 2. Sepsis ? Sepsis ruled out 3. Acute cystitis without hematuria with E. coli ? Patient is on Zosyn cultures pending ? 04/17/2023 urine cultures came back positive for E. coli remains on appropriate antibiotic -04/18/2023 patient was discharged on cefdinir 4. Possible pancreatitis ? Patient was found to infiltration of the pancreas and mild fat stranding of the second portion of the duodenum and the head of pancreas. Patient treated symptomatically 5. Acute hypertensive urgency ? Patient blood pressure has improved 6. Diabetes mellitus type II -patient's oral 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s held. Placed on long acting insulin, Accu-Cheks a.c. and at bedtime and covered with sliding scale insulin 7. Recent fall with hip fracture ? In December 2022 underwent ORIF 8. GERD ? On PPI 9.. Dyslipidemia -Patient is on statin therapy, continued at home dose 10. Coronary artery disease ? With history of previous non-STEMI remained stable with no ischemic symptoms 11. Paroxysmal A-fib ? Rate controlled 12. History of Takotsubo cardiomyopathy ? Remains stable 13. Hypokalemia -Corrected per protocol 14. History of migraine headaches ? Currently asymptomatic 15. Restless leg syndrome ? Remains stable 17. Irritable bowel syndrome ? Stable 18. Overactive bladder ? Plan is to continue with oxybutynin 19. Psoriatic arthritis ? Remains stable 20. Osteoporosis -; with history of compression fracture and pubic rami fractures 21. DVT prophylaxis - Lovenox 40 mg sq daily plus SCD's. 22; Hypomagnesemia ? Corrected per protocol repeat labs ordered for a.m. 23. Hypophosphatemia ? Corrected per protocol Time spent in the patient's overall evaluation,decision-making process, review of diagnostic data, adjustment of management, discussion with other providers, nursing nursing and ancillary staff involved in patient's care documentation 35 Minutes Medications at Discharge Home Medications alendronate 70 mg tablet 70 mg PO SA osteoporosis 01/06/18 buspirone 7.5 mg tablet 15 mg PO BID anxiety 01/06/18 fluoxetine 40 mg capsule 40 mg PO BID anxiety 01/06/18 glipizide 5 mg tablet 10 mg PO DAILY antidiabetic 01/06/18 omeprazole 20 mg tablet,delayed release 20 mg PO DAILY GERD 01/06/18 carvedilol 3.125 mg tablet 3.125 mg PO BID #90 tabs 07/10/18 ergocalciferol (vitamin D2) 1,250 mcg (50,000 unit) capsule 50,000 unit PO .COMPLEX supplement 02/12/19 lisinopril 20 mg tablet 20 mg PO DAILY #30 tabs 02/15/19 cephalexin 500 mg capsule 500 mg PO TID 7 days #21 caps 04/14/23 gabapentin 100 mg capsule 100 mg PO Q8H pain 04/14/23 meloxicam 7.5 mg tablet 7.5 mg PO DAILY pain 04/14/23 ondansetron 4 mg disintegrating tablet 4 mg PO TID PRN nausea and vomiting #21 tabs 04/14/23 oxybutynin chloride 10 mg tablet,extended release 24 hr 20 mg PO DAILY bladder 04/14/23 oxycodone 5 mg tablet 5 mg PO .COMPLEX pain 04/14/23 simvastatin 40 mg tablet 40 mg PO DAILY cholesterol 04/14/23 turmeric 1 cap PO DAILY supplement 04/14/23 Physical Exam Narrative GENERAL: cooperative HEENT: Atraumatic; normocephalic EYES; Anicteric, Normal Conjunctiva NECK; supple, normal thyroid, RESPIRATORY: Diminished to auscultation CARDIOVASCULAR: Regular S1 S2, GI: soft, normoactive bowel sounds, : No Renal angle tenderness; EXTREMITIES: No edema, no clubbing, MUSCULOSKELETAL: no muscle wasting NEURO: Awake; no lateralizing signs. SKIN: No Rash PSYCH; Flat affect Weight / BMI Weight Weight: 75 kg Body Mass Index (BMI) 27.5 ABG / Lab / Microbiology Data 04/18/23 05:29 04/18/23 05:29 Laboratory: Laboratory Results - last 24 hr 04/17/23 11:22: POC Glucose 112 H 04/17/23 16:56: POC Glucose 112 H 04/17/23 23:14: POC Glucose 120 H 04/18/23 05:18: POC Glucose 115 H 04/18/23 05:29: WBC 8.2, RBC 4.31, Hgb 12.0, Hct 37.6, MCV 87.2, MCH 27.8, MCHC 31.9 L, RDW Std Deviation 45.2 H, RDW Coeff of Gerhard 14.0, Plt Count 230, MPV 9.6, Immature Gran % (Auto) 0.200, Neut % (Auto) 65.0, Lymph % (Auto) 25.6, [place] % (Auto) 6.3, Eos % (Auto) 2.8, Baso % (Auto) 0.1, Absolute Neuts (auto) 5.3, Absolute Lymphs (auto) 2.09, Nucleated RBC % 0, Sodium 143, Potassium 3.8, Chloride 112 H, Carbon Dioxide 23.0, Anion Gap 8, BUN 7, Creatinine 0.57, Estim Creat Clear Calc 67.27, Est GFR (MDRD) Af Amer 134, Est GFR (MDRD) Non-Af 111, BUN/Creatinine Ratio 12.2, Glucose 105, Calcium 8.6 Microbiology: Microbiology 04/14/23 04:35 Urine Catheter - Catheter Urine Culture - Final Presumptive E. coli D/C Instructions Discharge Diet: No restrictions Discharge Activity: Return to Normal Activity Call your doctor if you observe: Fever of 101 or Higher, Shortness of breath, Fainting spells and Chest pain Meaningful Use Info Meaningful Use Diagnoses (Choose all that apply): None applicable Discharge Plan Admission Admit Date/Time: 04/14/23 07:01 Attending Provider: Coy Murcia Primary Care Provider: Rupal Boyer Consulting Providers: Coy Noel; Tamiko Quigley; Eliazar Chapman; Friend,Christopher Instructions Patient Instructions: Urinary Tract Infections in Women, ED Hypertension, Established, ED Opioid Withdrawal Additional Instructions / Restrictions: Your workup shows a urinary tract infection and therefore take the Keflex/cephalexin as directed. Also your history and workup indicate that some of your symptoms are related to opioid withdrawal as you have not taken your oxycodone in the last 24 hours. Therefore please go back to taking it as you were given in the snf and use Zofran for any nausea or vomiting sensation. If you have any further concerns or worsening of symptoms please return for repeat evaluation Discharge Orders/Prescriptions Prescriptions: New cephalexin 500 mg capsule 500 mg PO TID 7 Days Qty: 21 0RF ondansetron 4 mg tablet,disintegrating 4 mg PO TID PRN (Reason: nausea and vomiting) Qty: 21 0RF No Action fluoxetine 40 MG capsule 40 mg PO BID alendronate 70 MG tablet 70 mg PO SA Rx Instructions: unknown buspirone 7.5 MG tablet 15 mg PO BID glipizide 5 MG tablet 10 mg PO DAILY omeprazole 20 MG tablet,delayed release (DR/EC) 20 mg PO DAILY ergocalciferol (vitamin D2) 50,000 UNIT capsule 50,000 unit PO .COMPLEX Patient Comments: Unsure day patient takes Rx Instructions: 50,000 units orally Q 2 Weeks; 50,000 units orally; lisinopril 20 MG tablet 20 mg PO DAILY Qty: 30 0RF simvastatin 40 mg tablet 40 mg PO DAILY meloxicam 7.5 mg tablet 7.5 mg PO DAILY oxybutynin chloride 10 mg tablet extended release 24hr 20 mg PO DAILY oxycodone 5 mg tablet 5 mg PO .COMPLEX Patient Comments: take 1 tablet by mouth three times a day and 1 tablet twice a day if needed for pain Rx Instructions: take 1 tablet by mouth three times a day and 1 tablet twice a day if needed for pain gabapentin 100 mg capsule 100 mg PO Q8H turmeric 1,000 mg capsule 1 cap PO DAILY carvedilol 3.125 mg tablet 3.125 mg PO BID Qty: 90 3RF Rx Instructions: heart/ blood pressure Referrals / Follow Up: Rupal Boyer [facility]DR[facility]PERATOR[facility] [Primary Care Provider] - Within 2 Weeks Disposition Disposition (needs filled in before D/C Order can be placed): Home, Self Care Charges/Coding Visit Charges Inpatient E&M: 12886 Disch Hosp >30min
[2023-04-18 09:24] VITALS: BP 118/61; PULSE 84; RESP 16; TEMP 36.8; O2SAT 94
== END 2023-04-18 10:00 | disposition home or self-care (01) | DRG 393 ==
LOC: ED 06:25 → PCU 06:52 → ICU 04-16 06:46 → MS3 04-18 07:13 → ICU 05-04 14:11 → MS3 05-04 14:11
PROVIDERS: Internal Medicine; Internal Medicine Gastroenterology; Admitting Provider Internal Medicine; Emergency Provider Emergency Medicine; PCP Nurse Practitioner Family; Visit Provider Internal Medicine
PROC: 0DJD8ZZ Inspection of Lower Intestinal Tract, Via Natural or Artificial Opening Endoscopic (ICD-10-PCS; CPT 45378; principal; 2023-04-16 12:55)
DX: K62.89 Other specified diseases of anus and rectum (principal); K85.00 Idiopathic acute pancreatitis without necrosis or infection; G92.8 Other toxic encephalopathy; E72.20 Disorder of urea cycle metabolism, unspecified; N30.00 Acute cystitis without hematuria; F11.20 Opioid dependence, uncomplicated; E83.39 Other disorders of phosphorus metabolism; E11.22 Type 2 diabetes mellitus with diabetic chronic kidney disease; B96.20 Unspecified Escherichia coli [E. coli] as the cause of diseases classified elsewhere; I48.0 Paroxysmal atrial fibrillation; E86.0 Dehydration; F03.90 Unspecified dementia, unspecified severity, without behavioral disturbance, psychotic disturbance, mood disturbance, and anxiety; F31.9 Bipolar disorder, unspecified; N18.32 Chronic kidney disease, stage 3b; E11.65 Type 2 diabetes mellitus with hyperglycemia; L40.50 Arthropathic psoriasis, unspecified; G25.81 Restless legs syndrome; I12.9 Hypertensive chronic kidney disease with stage 1 through stage 4 chronic kidney disease, or unspecified chronic kidney disease; E78.00 Pure hypercholesterolemia, unspecified; G47.33 Obstructive sleep apnea (adult) (pediatric); I16.0 Hypertensive urgency; K21.9 Gastro-esophageal reflux disease without esophagitis; I25.10 Atherosclerotic heart disease of native coronary artery without angina pectoris; K44.9 Diaphragmatic hernia without obstruction or gangrene; K58.9 Irritable bowel syndrome, unspecified; K63.5 Polyp of colon; E87.6 Hypokalemia; K62.3 Rectal prolapse; I95.2 Hypotension due to drugs; E83.42 Hypomagnesemia; R32 Unspecified urinary incontinence; T40.605A Adverse effect of unspecified narcotics, initial encounter; E66.3 Overweight; F41.1 Generalized anxiety disorder; Z79.83 Long term (current) use of bisphosphonates; M81.0 Age-related osteoporosis without current pathological fracture; N32.81 Overactive bladder; Z79.84 Long term (current) use of oral 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 drugs; Z96.642 Presence of left artificial hip joint; Z87.891 Personal history of nicotine dependence; Z68.26 Body mass index [BMI] 26.0-26.9, adult
CPT/HCPCS: 36415; 36600; 74177; 80048; 80053; 80061; 80076; 81001; 82140; 82803; 82962; 83605; 83690; 83735; 84100; 84145; 84443; 85025; 87040; 87086; 87088; 87186; 88305; 93005; 94668; 97162; 97166; 97530; 97535; 99285; J7030; J7050; Q9967; A4216; J2405

== ENCOUNTER → 2023-06-18 | Outpatient (CLI) | payer MEDICARE, MEDICAID, SELFPAY ==
--- NOTE | 2023-06-18 16:57 | RAD_ITS ---
STUDY: X-RAY - LUMBOSACRAL SPINE REASON FOR EXAM: Female, 67 years old. Radiculopathy, lumbosacral region TECHNIQUE: 6 view(s) of the lumbosacral spine were obtained including oblique views and lateral flexion and extension views.. COMPARISON: Comparison is made with prior study dated July 26, 2021. FINDINGS: There is straightening of the normal lumbar lordosis. There is no substantial scoliosis. Grade 1 anterolisthesis of L5 on S1. There is demineralization of the lumbar vertebrae. Prior vertebroplasty of the L5 vertebrae. Almost complete collapse of the L1 and L2 vertebrae. There is multi-level degenerative disc disease with multi-level disc space narrowing. Healed fractures of both the superior and inferior pubic rami bilaterally. There is atherosclerotic calcification of the abdominal aorta without a demonstrated aneurysm. Left hip replacement. RAD/L/S Spine w Bend Min 6 Vw IMPRESSION: Diffuse osteopenia with prior vertebral plasty of the L5 vertebrae. The loss of height and normals complete collapse of the T12 and L1 vertebrae. Multilevel disc space narrowing. Electronically Signed: Christopher Jackson MD at 9:49 EDT ,
== END | disposition home or self-care (01) ==
PROVIDERS: PCP Nurse Practitioner Family; Referring Provider Anesthesiology Pain Medicine; Visit Provider Anesthesiology Pain Medicine
DX: M54.17 Radiculopathy, lumbosacral region (principal)
CPT/HCPCS: 72114

== ENCOUNTER 2023-09-16 22:20 | Inpatient (IN) | payer MEDICARE, MEDICAID, SELFPAY ==
[2023-09-16 22:21] VITALS: BP 124/86; PULSE 122; RESP 16; TEMP 36.2; O2SAT 96
[2023-09-16 22:53] LABS: Absolute Lymphocyte Count 2.11 X10^3/uL (0.83-4.51); Absolute Neutrophil Count 12.7 X10^3/uL (2.0-7.7); Basophil# 0.04 X10^3/uL; Basophil% 0.3 % (0-1); Eosinophil# 0.16 X10^3/uL; Hematocrit 46.5 % (37-47); Hemoglobin 14.8 g/dL (12.0-15.0); Lymphocyte # 2.11 X10^3/ul (0.83-4.51); Lymphocyte % 13.3 % (19-41); Mean Corp Hgb Conc 31.8 g/dL (32-36); Mean Corpuscular Hgb 29.7 pg (27.0-32.0); Mean Corpuscular Volume 93.2 fL (81-99); Mean Platelet Vol. 9.5 fl (6.2-12.0); Monocyte# 0.78 X10^3/uL; Monocyte% 4.9 % (0-10); NRBC Flagged by Analyzer 0 % (0-5); Neutrophil # 12.68 X10^3/uL (2.7-7.7); Neutrophil % 80.1 % (47-70); Platelet Count 409 K/mm3 (150-450); RBC Distribution Width CV 11.8 % (11.6-14.6); RBC Distribution Width SD 40.6 fl (35.1-43.9); Red Blood Count 4.99 M/mm3 (4.2-5.4); White Blood Count 15.8 K/mm3 (4.4-11.0)
--- NOTE | 2023-09-16 23:05 | CT_ITS ---
INDICATION: altered mental status EXAMINATION: CT BRAIN - CT Head or Brain W/O Contrast Injection TECHNIQUE: Multiple axial images were obtained of the head without intravenous contrast. A radiation dose optimization technique was used for this scan. IV Contrast dosage and agent: None. RADIATION DOSAGE (If Supplied By Facility): CTDIvol = ( 44.99 ) mGy, DLP = ( 900.16 ) mGycm COMPARISON: Prior study dated: 12/23/2022 FINDINGS: BRAIN PARENCHYMA: No intra- or extra-axial hemorrhage. No evidence of acute infarct. No intracranial mass or mass effect. There is preservation of the land/white matter interface. Posterior fossa structures are unremarkable. Patchy periventricular and deep white matter hypoattenuation is consistent with mild small vessel ischemic change. CSF SPACES: Proportional prominence of the ventricles and sulcal spaces is consistent with mild cerebral volume loss. No hydrocephalus. Basal cisterns are patent. CALVARIUM, SKULL BASE, PARANASAL SINUSES AND MASTOID AIR CELLS: The mastoid air cells and visualized paranasal sinuses are well aerated. The calvarium is intact. No discrete lytic or blastic abnormalities. ORBITS: Both globes, extraocular muscles, optic nerves and retrobulbar fat appear unremarkable. CT/Brain/Head without Contrast IMPRESSION: No acute intracranial finding. Electronically Signed: Bhavin Mei MD at 23:30 EDT ,
[2023-09-16 23:11] LABS: ALB/GLOB Ratio 0.9 RATIO (0.9-2.4); AST(SGOT) 28 U/L (15-37); Alanine Aminotransfer ALT/SGPT 38 U/L (13-56); Albumin, Serum 4.1 g/dL (3.2-5.0); Alkaline Phosphatase 92 U/L (45-117); Anion Gap 16 (5-15); BUN 38 mg/dL (7-18); BUN/Creat Ratio 29.5 RATIO (10-20); Chloride 106 mmol/L (98-107); Creatinine, Serum 1.29 mg/dL (0.55-1.02); EST Glomerular Filtration Rate 43 mL/min (>60); Est Glom Filt Rate - Afr Amer 53 mL/min (>60); Globulin 4.4 g/dL (2.2-4.2); Glucose 269 mg/dL (74-106); Potassium 4.5 mmol/L (3.5-5.1); Protein, Total 8.5 g/dL (6.4-8.2); Sodium Level 140 mmol/L (136-145)
[2023-09-16] MEDS: Ondansetron 4 MG/2 ML Vial IV (23:15)
[2023-09-16 23:16] VITALS: BMI 24.7
--- NOTE | 2023-09-16 23:20 | RAD_ITS ---
INDICATION: chest pain EXAMINATION/TECHNIQUE: X-RAY - XR Chest 1 View COMPARISON: Prior study dated: 12/23/2022 FINDINGS: LINES/DEVICES: None. LUNGS: The lungs are well expanded. No consolidation, edema or effusion. No pneumothorax. MEDIASTINUM AND CARDIOVASCULAR STRUCTURES: Cardiac silhouette not enlarged. Central airways and mediastinal contour are unremarkable. BONES AND SOFT TISSUES: No acute abnormality. Degenerative changes at the shoulders. Degenerative changes of the spine. RAD/Chest 1 View (Portable) IMPRESSION: No acute pulmonary finding. Electronically Signed: Bhavin Mei MD at 23:31 EDT ,
--- NOTE | 2023-09-16 23:37 | EDS_ITS ---
HPI HPI - GI History of Present Illness Chief Complaint: Nausea/Vomiting Informant: patient and family (son) Narrative Narrative: Patient has had nausea, vomiting, diarrhea for the past 4 days. She denies have any abdominal pain. Most of the history provided by the son, the patient is confused and very poor historian. He states that a week ago, his dad had vomiting and diarrhea, presumably had stomach flu, and the patient his mother was cleaning up after him. He was better in 2 or 3 days, and then about 3 days after that, she started having the same symptoms. Today however, according to the son, his father was saying that the patient was more confused than usual, and complaining of chest discomfort. It is unclear when she started having chest discomfort but they were concerned because she has a history of coronary disease and she has had a heart attack in the past. The patient cannot describe her chest discomfort. She points to the middle does not seem to radiate. [facility] Hiatal hernia Irritable bowel Back pain due to injury Restless legs Injury of head and neck High cholesterol Hearing loss, right Bipolar disorder Depression Anxiety GERD (gastroesophageal reflux disease) Former smoker Sleep apnea Atrial fibrillation Migraines Dementia Closed intertrochanteric fracture of left hip Psoriatic arthritis Nonobstructive atherosclerosis of coronary artery Obesity Type 2 diabetes mellitus Takotsubo syndrome Hyperlipidemia Essential (primary) hypertension NSTEMI (non-ST elevated myocardial infarction) (01/06/18) Home Medications ?Medication ?Instructions ?Recorded ?Last Taken ?Type alendronate 70 mg tablet 70 mg PO SA osteoporosis 01/06/18 Unknown History buspirone 7.5 mg tablet 15 mg PO BID anxiety 01/06/18 Unknown History fluoxetine 40 mg capsule 40 mg PO BID anxiety 01/06/18 Unknown History glipizide 5 mg tablet 10 mg PO DAILY antidiabetic 01/06/18 Unknown History omeprazole 20 mg tablet,delayed 20 mg PO DAILY GERD 01/06/18 Unknown History release carvedilol 3.125 mg tablet 3.125 mg PO BID #90 tabs 07/10/18 Unknown Rx ergocalciferol (vitamin D2) 1,250 50,000 unit PO .COMPLEX supplement 02/12/19 Unknown History mcg (50,000 unit) capsule lisinopril 20 mg tablet 20 mg PO DAILY #30 tabs 02/15/19 Unknown Rx cephalexin 500 mg capsule 500 mg PO TID 7 days #21 caps 04/14/23 Unknown Rx gabapentin 100 mg capsule 100 mg PO Q8H pain 04/14/23 Unknown History meloxicam 7.5 mg tablet 7.5 mg PO DAILY pain 04/14/23 Unknown History ondansetron 4 mg disintegrating 4 mg PO TID PRN nausea and 04/14/23 Unknown Rx tablet vomiting #21 tabs oxybutynin chloride 10 mg 20 mg PO DAILY bladder 04/14/23 Unknown History tablet,extended release 24 hr oxycodone 5 mg tablet 5 mg PO .COMPLEX pain 04/14/23 Unknown History simvastatin 40 mg tablet 40 mg PO DAILY cholesterol 04/14/23 Unknown History turmeric 1 cap PO DAILY supplement 04/14/23 Unknown History Allergy/AdvReac Type Severity Reaction Status Date / Time morphine Allergy Mild confusion Verified 09/16/23 22:21 codeine Allergy Itching Verified 09/16/23 22:21 fentanyl AdvReac confusion Verified 09/16/23 22:21 naproxen AdvReac Other Verified 09/16/23 22:21 Family History Mother Cancer skin Father Cancer prostate Surgical History History of back surgery History of carpal tunnel release of both wrists History of hysterectomy History of left heart catheterization (01/07/18) Social History Smoking Status: Former smoker how long ago did patient quit smokin years ago alcohol intake: never substance use type: does not use caffeine: Yes Type: carbonated beverages Number of servings: 1 ROS ROS ED Review of Systems ROS Unobtainable: due to mental status and other Constitutional Constitutional ED: Reports malaise and weakness Eyes Eyes: Denies change in vision Cardiovascular Cardiovascular: Reports chest pain Respiratory/Chest Respiratory/Chest: Denies dyspnea Gastrointestinal Gastrointestinal: Reports diarrhea, nausea and vomiting; Denies abdominal pain Musculoskeletal Musculoskeletal: Denies back pain or neck pain Neurologic Neurologic: Denies headache(s) EXAM Physical Exam Const Vital Signs: 09/16/23 22:21 09/16/23 23:47 Temperature 97.2 F L Temperature Source Oral Pulse Rate 122 H 125 H Respiratory Rate 16 24 H Blood Pressure 124/86 H 139/86 H Blood Pressure Mean 98 103 Pulse Ox 96 99 Oxygen Delivery Method Room Air Room Air Positive well nourished and well developed General Appearance ED: well developed and NAD HEENT Reports moist mucous membranes normocephalic and atraumatic Eyes PERRL and EOMs intact bilaterally Neck full ROM and supple Resp normal respiratory effort and clear to auscultation bilaterally Cardio regular rate, regular rhythm and no murmurs Rate: tachycardic GI non-tender and non-distended Auscultation: normoactive bowel sounds Palpation: soft Back/Spine no CVA tenderness General Back: other FROM Extremity normal to inspection General Extremety ED: Negative for edema, pulses abnormal or tenderness General Extremity: Negative for edema or pulses abnormal Neuro CN's II-XII intact bilaterally and no sensory deficits noted Neuro Narrative: Disoriented and seems confused but nonlateralizing neurologic exam peripherally Sensorium / Orientation: awake and alert Motor Exam: general weakness Skin no rashes or lesions noted and no wounds MDM MDM MDM Narrative Medical decision making narrative: Given history, the patient presumably has gastroenteritis, and the v omiting/esophagitis from vomiting could be causing her to have chest discomfort. Her EKG shows no acute injury pattern, however she has a left bundle branch block and in looking at her old EKGs, this seems to be new. She did have a left axis before but not a left bundle completed. It does not meet STEMI criteria right now. Her labs are noted, she has DURAN presumably from dehydration as she is prerenal along with that, and her bicarbonate is low presumably loss from diarrhea, she has a very slight anion gap acidosis, likely due to elevated lactate, but with her anion gap being mild I would presume that it is from dehydration and not sepsis; her urine is negative for infection, her chest x-ray is negative for pneumonia, her BP has remained stable, and her HR has improved w/ IVF. Sent for CT head to rule out primary [employer]NA[employer] etiologies of her confusional state. I reviewed the images and report which I agree with, it is negative for any acute. Also sent her for a 1 view chest x-ray, it shows some chronic changes on my interpretation but nothing acute. No pulmonary edema. No wide mediastinum. Radiology in agreement. Her troponin came back elevated. It is not very high, nonspecific. I am ordering a second 1 to be done 2 hours afterwards. I reviewed some of her records. The son and the patient keeps telling me that she had a maker, but I see no evidence of CAD or a stent, just Takotsubo. I asked if she went somewhere else to have heart tests or procedures done other than this hospital, they state no. Her last echo was in 2018 showed that her ejection fraction had improved from 40% to 65%. She does not appear to be in acute failure right now. Myocarditis also in differential. I discussed with cardiology Dr. Rendon, he advises repeating the troponin, placing her on heparin drip, and agrees with admission and obtaining a plain echocardiogram in the morning and they will consult. Her repeat troponin came back over 1999, this is more consistent with NSTEMI. History & Record Review Additional record(s) reviewed:: Prior outpatient record Lab Data Attestation: I reviewed the patient's lab results. Labs: Laboratory Results - last 24 hr 09/16/23 09/16/23 09/17/23 00:00 22:40 00:15 WBC 15.8 H RBC 4.99 Hgb 14.8 Hct 46.5 MCV 93.2 MCH 29.7 MCHC 31.8 L RDW Std Deviation 40.6 RDW Coeff of Gerhard 11.8 Plt Count 409 MPV 9.5 Immature Gran % (Auto) 0.400 Neut % (Auto) 80.1 H Lymph % (Auto) 13.3 L [place] % (Auto) 4.9 Eos % (Auto) 1.0 Baso % (Auto) 0.3 Absolute Neuts (auto) 12.7 H Absolute Lymphs (auto) 2.11 Nucleated RBC % 0 Sodium 140 Potassium 4.5 Chloride 106 Carbon Dioxide 18.0 L Anion Gap 16 H BUN 38 H Creatinine 1.29 H Est GFR (MDRD) Af Amer 53 L Est GFR (MDRD) Non-Af 43 L BUN/Creatinine Ratio 29.5 H Glucose 269 H Lactic Acid 4.4 H* Calcium 10.0 Total Bilirubin 0.70 AST 28 ALT 38 Alkaline Phosphatase 92 Troponin I High Sens 98 H Total Protein 8.5 H Albumin 4.1 Globulin 4.4 H Albumin/Globulin Ratio 0.9 Urine Color Yellow Urine Clarity Clear Urine pH 5.0 Ur Specific [place] 1.025 Urine Protein 100 H Urine Glucose (UA) Normal Urine Ketones 150 A* Urine Occult Blood 10 H Urine Nitrite Negative Urine Bilirubin 1 H Urine Urobilinogen 1 H Ur Leukocyte Esterase Negative Urine RBC 0 SEEN Urine WBC 0 SEEN Ur Squamous Epith Cells 0 SEEN Amorphous Sediment 1+ Urine Bacteria 0 SEEN Urine Mucus 0 SEEN 09/17/23 00:30 WBC RBC Hgb Hct MCV MCH MCHC RDW Std Deviation RDW Coeff of Gerhard Plt Count MPV Immature Gran % (Auto) Neut % (Auto) Lymph % (Auto) [place] % (Auto) Eos % (Auto) Baso % (Auto) Absolute Neuts (auto) Absolute Lymphs (auto) Nucleated RBC % Sodium Potassium Chloride Carbon Dioxide Anion Gap BUN Creatinine Est GFR (MDRD) Af Amer Est GFR (MDRD) Non-Af BUN/Creatinine Ratio Glucose Lactic Acid Calcium Total Bilirubin AST ALT Alkaline Phosphatase Troponin I High Sens 2289 H* Total Protein Albumin Globulin Albumin/Globulin Ratio Urine Color Urine Clarity Urine pH Ur Specific [place] Urine Protein Urine Glucose (UA) Urine Ketones Urine Occult Blood Urine Nitrite Urine Bilirubin Urine Urobilinogen Ur Leukocyte Esterase Urine RBC Urine WBC Ur Squamous Epith Cells Amorphous Sediment Urine Bacteria Urine Mucus Radiography Diagnostic Testing: Clinical Impression(s) from Imaging Studies Brain CT 09/16/23 23:05 IMPRESSION: No acute intracranial finding. Electronically Signed: Bhavin Mei MD at 23:30 EDT Reading Location ID and State: [address] [place] [address] Tel , Service support , Chest X-Ray 09/16/23 23:20 IMPRESSION: No acute pulmonary finding. Electronically Signed: Bhavin Mei MD at 23:31 EDT Reading Location ID and State: [facility] / [place] Tel , Service support , Rhythm Strip Rhythm Strip: Sinus Tach Rate: 110 Ectopy: None EKG Initial EKG: Attestation: I personally reviewed and interpreted this EKG as follows: Interpretation: Sinus Rhythm, No Acute Injury Pattern and LBBB Prior EKG tracings: available for review Prior: Changed (LBBB new c/w 04/14/23) Management Discussion w/another healthcare provider: Hospitalist and Residential Treatment Specialist (cardiology Dr. Rendon) Discharge Plan Dx/Rx/DC Orders Clinical Impression: Non-ST elevation [place] (NSTEMI), Chest pain, Gastroenteritis, DURAN (acute kidney injury), Acute dehydration, Acute encephalopathy Disposition Disposition: Acute Care Hospital [facility] Discharge Date/Time: 09/17/23 01:12
[2023-09-16 23:39] LABS: Troponin-I HS 98 pg/mL (3.0-54.0)
[2023-09-16] MEDS: Metoclopramide 10 MG/2 ML Vial 5 MG IV (23:46)
[2023-09-16] MEDS: 0.9% Normal Saline (1000mL) 1,000 ML 125 ML IV (23:46)
[2023-09-16 23:47] VITALS: BP 139/86; PULSE 125; RESP 24; O2SAT 99
[2023-09-17] VITALS (33 sets, daily range): BP systolic 107–131; BP diastolic 68–99; PULSE 104–119; RESP 16–118; TEMP 36.4–36.8; O2SAT 91–100; BMI 24.5
[2023-09-17 00:06] LABS: Bacteria 0 SEEN /hpf (None Seen); Mucous, Urine 0 SEEN /hpf (<or=2+); Red Blood Cells-Urine 0 SEEN /hpf (0-5); Squamous Epithelial Cells - UA 0 SEEN /hpf (5-10); White Blood Cells 0 SEEN /hpf (0-5)
[2023-09-17 00:20] LABS: Color, Urine Yellow (Yellow); Glucose, Dipstick Normal (Normal); Leukocyte Esterase-Dipstick Negative /ul (Negative); Nitrite-Dipstick Negative (Negative); Occult Blood-Urine 10 /ul (Negative); Protein-Dipstick 100 mg/dl (Negative); Specific Gravity, Urine 1.025 (1.002-1.030); Urine Clarity Clear (Clear); Urine Urobilinogen 1 mg/dl (Normal)
[2023-09-17 00:26] LABS: Urine Bilirubin Dipstick 1 mg/dL (Negative)
[2023-09-17 00:27] LABS: Ketone-Dipstick 150 mg/dl (Negative)
[2023-09-17 00:36] LABS: Amorphous Sediment 1+
[2023-09-17] MEDS: Ondansetron 4 MG/2 ML Vial IV ×2 (00:42→16:31)
--- NOTE | 2023-09-17 00:51 | HP.PCM.HOS_ITS ---
HPI - General General Date of Admission: 09/17/23 Date of Service: 09/17/23 Chief Complaint: confusion. N/V/D HPI Narrative LUBA MARSH, is a 67 F who presents with increased confusion from baseline. Over the past few days she has been having nausea, dry heaves, vomiting and diarrhea. Patient currently has confusion at baseline but was more noticeable recently. Also complaining of chest pain. Prior to this, patient was taking care of her who had similar symptoms but since then resolved. SIRS present to the emergency room here and that she had an EKG that showed a left bundle branch block, troponins were elevated at 98 and her creatinine was elevated at 1.29. ED physician spoke with Dr. Rendon, of cardiology, who recommended heparin drip, echo and cardiology consult. Patient has had a history of Takotsubo's cardiomyopathy in 2018. [facility] Medical History Hiatal hernia Irritable bowel Back pain due to injury Restless legs Injury of head and neck High cholesterol Hearing loss, right Bipolar disorder Depression Anxiety GERD (gastroesophageal reflux disease) Former smoker Sleep apnea Atrial fibrillation Migraines Dementia Closed intertrochanteric fracture of left hip Psoriatic arthritis Nonobstructive atherosclerosis of coronary artery Obesity Type 2 diabetes mellitus Takotsubo syndrome Hyperlipidemia Essential (primary) hypertension NSTEMI (non-ST elevated myocardial infarction) (01/06/18) Home Medications ?Medication ?Instructions ?Recorded ?Last Taken ?Type alendronate 70 mg tablet 70 mg PO SA osteoporosis 01/06/18 Unknown History buspirone 7.5 mg tablet 15 mg PO BID anxiety 01/06/18 Unknown History fluoxetine 40 mg capsule 40 mg PO BID anxiety 01/06/18 Unknown History glipizide 5 mg tablet 10 mg PO DAILY antidiabetic 01/06/18 Unknown History omeprazole 20 mg tablet,delayed 20 mg PO DAILY GERD 01/06/18 Unknown History release carvedilol 3.125 mg tablet 3.125 mg PO BID #90 tabs 07/10/18 Unknown Rx ergocalciferol (vitamin D2) 1,250 50,000 unit PO .COMPLEX supplement 02/12/19 Unknown History mcg (50,000 unit) capsule lisinopril 20 mg tablet 20 mg PO DAILY #30 tabs 02/15/19 Unknown Rx cephalexin 500 mg capsule 500 mg PO TID 7 days #21 caps 04/14/23 Unknown Rx gabapentin 100 mg capsule 100 mg PO Q8H pain 04/14/23 Unknown History meloxicam 7.5 mg tablet 7.5 mg PO DAILY pain 04/14/23 Unknown History ondansetron 4 mg disintegrating 4 mg PO TID PRN nausea and 04/14/23 Unknown Rx tablet vomiting #21 tabs oxybutynin chloride 10 mg 20 mg PO DAILY bladder 04/14/23 Unknown History tablet,extended release 24 hr oxycodone 5 mg tablet 5 mg PO .COMPLEX pain 04/14/23 Unknown History simvastatin 40 mg tablet 40 mg PO DAILY cholesterol 04/14/23 Unknown History turmeric 1 cap PO DAILY supplement 04/14/23 Unknown History Allergy/AdvReac Type Severity Reaction Status Date / Time morphine Allergy Mild confusion Verified 09/16/23 22:21 codeine Allergy Itching Verified 09/16/23 22:21 fentanyl AdvReac confusion Verified 09/16/23 22:21 naproxen AdvReac Other Verified 09/16/23 22:21 Family History Mother Cancer skin Father Cancer prostate Surgical History History of back surgery History of carpal tunnel release of both wrists History of hysterectomy History of left heart catheterization (01/07/18) Social History Smoking Status: Former smoker how long ago did patient quit smokin years ago alcohol intake: never substance use type: does not use caffeine: Yes Type: carbonated beverages Number of servings: 1 ROS ROS Narrative All review of systems were negative except as mentioned above in the history of present illness and the other review of systems. Vital Signs Vital Signs Vital Signs: 09/16/23 22:21 09/16/23 23:47 Temperature 36.2 C L Temperature Source Oral Pulse Rate 122 H 125 H Respiratory Rate 16 24 H Blood Pressure 124/86 H 139/86 H Blood Pressure Mean 98 103 Pulse Ox 96 99 Oxygen Delivery Method Room Air Room Air Weight Weight: 67.3 kg Body Mass Index (BMI) 24.7 Physical Exam Const alert Constitutional Narrative: Actively having dry heaves during the encounter. No actual vomiting seen. Peers much older than stated age. Appears dry. Afebrile. General Appearance: cooperative HEENT normocephalic and moist oral mucous membranes Resp normal respiratory effort, no retractions, no use of accessory muscles and clear to auscultation bilaterally Cardio regular rate, regular rhythm, S1 normal heart sound and S2 normal heart sound GI normal to inspection, nondistended, normoactive bowel sounds, soft to palpation, non-tender and non-distended Extremity Extremity Narrative: Atrophy of lower extremities Neuro Sensorium / Orientation: awake Results Lab / Micro Data Attestation: I reviewed the patient's lab results. 09/16/23 22:40 09/16/23 22:40 Labs: Laboratory Results - last 24 hr 09/16/23 00:00: Urine Color Yellow, Urine Clarity Clear, Urine pH 5.0, Ur Specific [place] 1.025, Urine Protein 100 H, Urine Glucose (UA) Normal, Urine Ketones 150 A*, Urine Occult Blood 10 H, Urine Nitrite Negative, Urine Bilirubin 1 H, Urine Urobilinogen 1 H, Ur Leukocyte Esterase Negative, Urine RBC 0 SEEN, Urine WBC 0 SEEN, Ur Squamous Epith Cells 0 SEEN, Amorphous Sediment 1+, Urine Bacteria 0 SEEN, Urine Mucus 0 SEEN 09/16/23 22:40: WBC 15.8 H, RBC 4.99, Hgb 14.8, Hct 46.5, MCV 93.2, MCH 29.7, M CHC 31.8 L, RDW Std Deviation 40.6, RDW Coeff of Gerhard 11.8, Plt Count 409, MPV 9.5, Immature Gran % (Auto) 0.400, Neut % (Auto) 80.1 H, Lymph % (Auto) 13.3 L, [place] % (Auto) 4.9, Eos % (Auto) 1.0, Baso % (Auto) 0.3, Absolute Neuts (auto) 12.7 H, Absolute Lymphs (auto) 2.11, Nucleated RBC % 0, Sodium 140, Potassium 4.5, Chloride 106, Carbon Dioxide 18.0 L, Anion Gap 16 H, BUN 38 H, Creatinine 1.29 H, Est GFR (MDRD) Af Amer 53 L, Est GFR (MDRD) Non-Af 43 L, BUN/Creatinine Ratio 29.5 H, Glucose 269 H, Calcium 10.0, Total Bilirubin 0.70, AST 28, ALT 38, Alkaline Phosphatase 92, Troponin I High Sens 98 H, Total Protein 8.5 H, Albumin 4.1, Globulin 4.4 H, Albumin/Globulin Ratio 0.9 Rhythm Strip Rhythm Strip: Sinus Tach Rate: 110 Ectopy: None EKG Initial EKG: Attestation: I personally reviewed and interpreted this EKG as follows: Prior EKG tracings: available for review EKG Rhythm Intrepretation: Sinus Rhythm (With left bundle branch block and that was not seen on EKGs from April 14, 2023.) Imaging Radiology Impression Brain CT 09/16/23 23:05 IMPRESSION: No acute intracranial finding. Electronically Signed: Bhavin Mei MD at 23:30 EDT , Chest X-Ray 09/16/23 23:20 IMPRESSION: No acute pulmonary finding. Electronically Signed: Bhavin Mei MD at 23:31 EDT , Assessment & Plan Assessment/Plan (1) NSTEMI, initial episode of care: PLAN: New from April of this year she has a left bundle branch block. Additionally her troponins are elevated. It is unclear what type of non-STEMI this is at this time. Patient was telling emergency room physician that she has a history of the maker. But cath report from 2018 showed that she actually had Takotsubo cardiomyopathy. Plan: Per cardiology's recommendations will continue the heparin drip that was started in the emergency room, check echo and consult cardiology. (2) DURAN (acute kidney injury): PLAN: Baseline creatinine is around 0.5-0.6 and today is 1.29. I suspect this is due to prerenal azotemia from the gastroenteritis and decreased oral intake Plan: IV fluids and monitor. . (3) Acute encephalopathy: PLAN: Suspect metabolic in a patient with known dementia as well as undergoing his gastroenteritis and dehydration. Supportive management at this time. Head CT was negative Plan: Will hold potentiating medications, such as gabapentin, at this time. Supportive management (4) Gastroenteritis: PLAN: Been going on for about 3 days after sandra it likely from her . Abdominal exam is unremarkable. Plan: IV fluids and supportive management with antiemetics. PLAN: Plan Chronic conditions * Diabetes mellitus type 2: Holding off on the glipizide for now. Sliding scale insulin. * History of Takotsubo cardiomyopathy: Continue with carvedilol. Repeat echo will be pending. VTE prophylaxis: Not indicated at this time as patient will be anticoagulated on heparin. Discussed with the patient's son at bedside Charges/Coding Visit Charges Inpatient E&M: 79959 Init Hosp L3
[2023-09-17] MEDS: HEPARIN/D5w 25,000 UNITS 25,000 UNITS/250 ML IV.SOLN. 8 UNITS CONT INF (01:06)
[2023-09-17] MEDS: Heparin Injection (Vial) 5,000 UNIT/ML VIAL 4000 UNIT IV (01:08)
[2023-09-17 01:14] LABS: Troponin-I HS 2289 pg/mL (3.0-54.0)
[2023-09-17 01:22] LABS: International Normalized Ratio 1.1; Partial Thromboplast Time 25.7 Seconds (24.1-36.2); Prothrombin Time (Protime)PT. 14.6 SECONDS (11.7-14.9)
--- NOTE | 2023-09-17 01:40 | ECHOD_ITS ---
Reason For Study: CHEST PAIN Procedure This was a 2D Doppler, Color Flow transthoracic echocardiogram. The study was technically difficult. Contrast injection was performed. Exam performed portable in patient room. Left Ventricle Normal LV size. Severe segmental systolic dysfunction (see wall motion). The left ventricular ejection fraction is 20 %. Posterior-Basal: Normal. Infero-Basal: Normal. Anterio-Basal: Normal. Mid-anteroseptal : Akinetic. Mid-Posterior: Normal. The rest of the wall segments are hypokinetic. Right Ventricle Normal RV size. Normal systolic function. Atria Normal left atrium. Normal right atrium. Mitral Valve Normal mitral valve. Tricuspid Valve Normal tricuspid valve. Aortic Valve Trisinus/trileaflet aortic valve. Pulmonic Valve Normal pulmonic valve. Great Vessels Normal aortic root. The pulmonary artery is normal size. Inferior vena cava collapse with respiration. Pericardium/Pleural No pericardial effusion. Medication Diluted definity 2ml given slow IV push to enhance endocardial definition. MMode/2D Measurements & Calculations LVIDd: 4.9 cm IVSd: 0.90 cm LVOT diam: 1.9 cm LVIDs: 4.6 cm LVPWd: 0.77 cm RVDd: 2.7 cm FS: 7.4 % LVOT area: 2.8 cm2 Ao root diam: 3.3 cm LAV(MOD-bp): 33.2 ml LVAd ap4: 39.4 cm2 LAV(MOD-bp) Indexed: 19.4 ml/m2 LVLd ap4: 7.8 cm LAV(MOD-sp2): 37.8 ml EDV(MOD-sp4): 156.2 ml LAV(MOD-sp4): 21.3 ml EDV(sp4-el): 168.3 ml LVAs ap4: 35.9 cm2 LVLs ap4: 7.6 cm ESV(MOD-sp4): 136.8 ml ESV(sp4-el): 144.6 ml EF(MOD-sp4): 12.5 % EF(sp4-el): 14.0 % LVAd ap2: 36.2 cm2 SV(MOD-sp4): 19.5 ml SV(MOD-sp2): 29.3 ml LVLd ap2: 7.7 cm EDV(MOD-sp2): 138.7 ml EDV(sp2-el): 145.3 ml LVAs ap2: 30.9 cm2 LVLs ap2: 7.5 cm ESV(MOD-sp2): 109.4 ml ESV(sp2-el): 107.5 ml EF(MOD-sp2): 21.1 % SV(sp4-el): 23.6 ml LA dimension(2D): 3.5 cm LA A4 area: 9.4 cm2 RA A4 area: 5.2 cm2 TAPSE: 1.1 cm Time Measurements MV dec time: 0.08 sec Doppler Measurements & Calculations MV E max moustapha: 114.1 cm/sec Lat Peak E' Moustapha: 9.1 cm/sec Med Peak E' Moustapha: 6.2 cm/sec E/E' lat: 12.5 E/E' med: 18.5 Ao V2 max: 90.4 cm/sec LV V1 max: 63.2 cm/sec SV(LVOT): 26.8 ml Ao max P.3 mmHg LV V1 max P.6 mmHg Ao V2 mean: 61.8 cm/sec LV V1 mean P.89 mmHg Ao mean P.7 mmHg LV V1 mean: 45.1 cm/sec Ao V2 VTI: 12.4 cm LV V1 VTI: 9.5 cm AV (velocity ratio): 0.77 IDALIA(I,D): 2.2 cm2 IDALIA(V,D): 2.0 cm2 PA V2 max: 113.5 cm/sec PA max PG (full): 2.1 mmHg ECHO/Echo Complete W/ Contrast Interpretation Summary Normal LV size. Severe segmental systolic dysfunction (see wall motion). The left ventricular ejection fraction is 20 %. Above consistent with takutsobo Contrast injection was performed. Ordering Physician: Nicola Potts Performed By: Gladys Fenton RDCS
--- NOTE | 2023-09-17 01:40 | EKG12_ITS ---
Test Reason : DYSRHYTHMIA Blood Pressure : / mmHG Vent. Rate : 099 BPM Atrial Rate : 099 BPM P-R Int : 176 ms QRS Dur : 132 ms QT Int : 418 ms P-R-T Axes : 064 -34 071 degrees QTc Int : 536 ms Normal sinus rhythm Left axis deviation NSIVCB Abnormal ECG Confirmed by Fabián Azar ([id number]), state editor CAIT VIDES ([id number]) on 09/19/2023 9:01:23 AM Referred By: RUSS Confirmed By:Fabián Azar
[2023-09-17 01:42] LABS: Lactic Acid 4.4 mmol/L (0.4-1.9)
[2023-09-17] MEDS: proCHLORPERazine 10 MG/2 ML Vial 5 MG IV ×4 (02:01→19:49)
[2023-09-17] MEDS: oxyCODONE 5 MG Tablet PO (02:04)
[2023-09-17] MEDS: Nitroglycerin Infusion 250 ML 3 MG CONT INF (03:57)
[2023-09-17 04:33] LABS: Reflex Lactate? Y
[2023-09-17 05:27] LABS: Lactic Acid 2.7 mmol/L (0.4-1.9); Troponin-I HS 4278 pg/mL (3.0-54.0)
[2023-09-17] MEDS: Insulin Lispro 100 UNIT/ML INSULN.PEN SC ×2 (06:37→16:22)
[2023-09-17 07:14] LABS: Bedside Glucose 264 mg/dL (74-106)
[2023-09-17 07:19] LABS: Absolute Lymphocyte Count 0.75 X10^3/uL (0.83-4.51); Absolute Neutrophil Count 18.1 X10^3/uL (2.0-7.7); Basophil# 0.02 X10^3/uL; Basophil% 0.1 % (0-1); Hematocrit 44.1 % (37-47); Hemoglobin 13.9 g/dL (12.0-15.0); Lymphocyte # 0.75 X10^3/ul (0.83-4.51); Lymphocyte % 3.8 % (19-41); Mean Corp Hgb Conc 31.5 g/dL (32-36); Mean Corpuscular Hgb 29.1 pg (27.0-32.0); Mean Corpuscular Volume 92.3 fL (81-99); Mean Platelet Vol. 9.8 fl (6.2-12.0); Monocyte# 0.66 X10^3/uL; Monocyte% 3.4 % (0-10); NRBC Flagged by Analyzer 0 % (0-5); Neutrophil # 18.07 X10^3/uL (2.7-7.7); Neutrophil % 92.1 % (47-70); Platelet Count 377 K/mm3 (150-450); RBC Distribution Width SD 40.9 fl (35.1-43.9); Red Blood Count 4.78 M/mm3 (4.2-5.4); White Blood Count 19.6 K/mm3 (4.4-11.0)
[2023-09-17 07:33] LABS: Partial Thromboplast Time 52.1 Seconds (24.1-36.2)
[2023-09-17 07:49] LABS: Anion Gap 16 (5-15); BUN 44 mg/dL (7-18); BUN/Creat Ratio 42.3 RATIO (10-20); Calcium,Total 9.7 mg/dL (8.5-10.1); Chloride 108 mmol/L (98-107); Cholesterol 151 mg/dL (200); Creatinine, Serum 1.04 mg/dL (0.55-1.02); EST Glomerular Filtration Rate 56 mL/min (>60); Est Glom Filt Rate - Afr Amer 67 mL/min (>60); Estimated Creatinine Clearance 45.94 ml/min; Glucose 270 mg/dL (74-106); High Density Lipoprotein 47 mg/dL; Potassium 4.8 mmol/L (3.5-5.1); Sodium Level 141 mmol/L (136-145); Triglycerides 83 mg/dL; Very Low Density Lipoprotein 17 mg/dL (5-40)
--- NOTE | 2023-09-17 08:20 | PCM.CONS.C ---
Assessment & Plan Assessment/Plan (1) Non-ST elevation MN (NSTEMI): PLAN: Patient's enzymes the third set was 40-78. This is in the presence of a lactic acidosis which is resolving the patient continues to have a sinus tachycardia which had been present back in April 2023 as well. She is a remote smoker and she has a history of hypertension and hyperlipidemia. The patient also has a history of Takotsubo syndrome in 2018. The patient should undergo a 2D echocardiogram which is being done urgently. She will be evaluated and will need to undergo a left heart catheterization in the near future probably today. (2) Chest pain: QUALIFIERS: Chest pain type: chest pain due to myocardial ischemia Ischemic chest pain type: unstable angina pectoris Qualified Code(s): I20.0 - Unstable angina PLAN: The patient continues to complain of some chest discomfort and with rising enzymes and new EKG changes with a new interventricular conduction block I recommend she undergo a left heart catheterization. The timing of which is somewhat complicated given her mental status issues as well as her elevated white count and lactic acid which is resolving. (3) Leukocytosis: QUALIFIERS: Leukocytosis type: unspecified Qualified Code(s): D72.829 - Elevated white blood cell count, unspecified PLAN: Leukocytosis being evaluated by the primary service. (4) Hypertension: QUALIFIERS: Hypertension type: primary hypertension Qualified Code(s): I10 - Essential (primary) hypertension PLAN: Her blood pressure is well-controlled on her current medical therapy. (5) CKD (chronic kidney disease), stage III: QUALIFIERS: Chronic kidney disease stage 3 subtype: stage 3a (GFR 45-59) Qualified Code(s): N18.31 - Chronic kidney disease, stage 3a PLAN: Creatinine clearance is 56. PLAN: Plan 1. Obtain 2D echocardiogram to evaluate LV function and rule out any type of vegetation. 2. Will need left heart catheterization probably today. Will evaluate for timing after echocardiogram is known. 3. Continue current medical therapy will hold heparin for catheterization. HPI Consult Data Date of Consult: 09/17/23 HPI Narrative Reason for Consultation: Chest pain this new EKG changes HPI Narrative: LUBA MARSH, is a 67 F who presents with a history of nausea and vomiting and some confusion with chest pain. The patient's EKG shows a new interventricular conduction block compared to her previous EKG from April 2023. There are no definitive ST segment elevations. The patient was treated with IV heparin and placed on telemetry in the PCU. The patient denies any nausea or vomiting at this time. She denies any shortness of breath she is resting in recumbent position flat in bed on room air. The patient heart rate is in the 1 10-1 20 range and shows sinus tachycardia. In April 2023 her heart rate was sinus tach on her EKG. The patient's initial troponin was 98-second troponin 2289 third troponin 40-78. Her lactic acid was 4.4 on admission and came down to 2.7 however her white blood cell count has gone up to 19,000. The patient reports that she continues to have some chest discomfort it really has not changed since she came to the hospital. There is no family available at this point in time in the room. The patient is oriented to person and place she did not know what month it was but she did know that the president was not Trump. The patient was able to explain to me that she had had a heart catheterization previously and was able to explain to me how it was done through her wrist. She had a history of Takotsubo syndrome in 2018. [facility] Medical History Hiatal hernia Irritable bowel Back pain due to injury Restless legs Injury of head and neck High cholesterol Hearing loss, right Bipolar disorder Depression Anxiety GERD (gastroesophageal reflux disease) Former smoker Sleep apnea Atrial fibrillation Migraines Dementia Closed intertrochanteric fracture of left hip Psoriatic arthritis Nonobstructive atherosclerosis of coronary artery Obesity Type 2 diabetes mellitus Takotsubo syndrome Hyperlipidemia Essential (primary) hypertension NSTEMI (non-ST elevated myocardial infarction) (01/06/18) Home Medications ?Medication ?Instructions ?Recorded ?Last Taken ?Type alendronate 70 mg tablet 70 mg PO SA osteoporosis 01/06/18 Unknown History buspirone 7.5 mg tablet 15 mg PO BID anxiety 01/06/18 Unknown History fluoxetine 40 mg capsule 40 mg PO BID anxiety 01/06/18 Unknown History glipizide 5 mg tablet 10 mg PO DAILY antidiabetic 01/06/18 Unknown History omeprazole 20 mg tablet,delayed 20 mg PO DAILY GERD 01/06/18 Unknown History release carvedilol 3.125 mg tablet 3.125 mg PO BID #90 tabs 07/10/18 Unknown Rx ergocalciferol (vitamin D2) 1,250 50,000 unit PO .COMPLEX supplement 02/12/19 Unknown History mcg (50,000 unit) capsule lisinopril 20 mg tablet 20 mg PO DAILY #30 tabs 02/15/19 Unknown Rx cephalexin 500 mg capsule 500 mg PO TID 7 days #21 caps 04/14/23 Unknown Rx gabapentin 100 mg capsule 100 mg PO Q8H pain 04/14/23 Unknown History meloxicam 7.5 mg tablet 7.5 mg PO DAILY pain 04/14/23 Unknown History ondansetron 4 mg disintegrating 4 mg PO TID PRN nausea and 04/14/23 Unknown Rx tablet vomiting #21 tabs oxybutynin chloride 10 mg 20 mg PO DAILY bladder 04/14/23 Unknown History tablet,extended release 24 hr oxycodone 5 mg tablet 5 mg PO .COMPLEX pain 04/14/23 Unknown History simvastatin 40 mg tablet 40 mg PO DAILY cholesterol 04/14/23 Unknown History turmeric 1 cap PO DAILY supplement 04/14/23 Unknown History Allergy/AdvReac Type Severity Reaction Status Date / Time morphine Allergy Mild confusion Verified 09/16/23 22:21 codeine Allergy Itching Verified 09/16/23 22:21 fentanyl AdvReac confusion Verified 09/16/23 22:21 naproxen AdvReac Other Verified 09/16/23 22:21 Family History Mother Cancer skin Father Cancer prostate Surgical History History of back surgery History of carpal tunnel release of both wrists History of hysterectomy History of left heart catheterization (01/07/18) Social History Smoking Status: Former smoker how long ago did patient quit smokin years ago alcohol intake: never substance use type: does not use caffeine: Yes Type: carbonated beverages Number of servings: 1 ROS Constitutional Constitutional: Reports systems reviewed and no addt'l complaints, except as documented and as per HPI Eyes Eyes: Reports systems reviewed and no addt'l complaints, except as documented ENT HEENT: Reports systems reviewed and no addt'l complaints, except as documented Cardiovascular Cardiovascular: Reports as per HPI Respiratory/Chest Respiratory/Chest: Reports as per HPI Gastrointestinal Gastrointestinal: Reports as per HPI Genitourinary Genitourinary: Reports systems reviewed and no addt'l complaints, except as documented Musculoskeletal Musculoskeletal: Reports systems reviewed and no addt'l complaints, except as documented Integumentary Integumentary: Reports systems reviewed and no addt'l complaints, except as documented Neurologic Neurologic: Reports as per HPI Psychiatric Psychiatric: Reports as per HPI Endocrine Endocrinology: Reports systems reviewed and no addt'l complaints, except as documented Hematologic/Lymphatic Hematologic/Lymphatic: Reports as per HPI Physical Exam Const alert Constitutional Narrative: Patient is oriented to person and place but somewhat confused about the date. She is able to explain to me what a is heart catheterization and how it is performed. HEENT normocephalic Eyes no scleral icterus Neck no JVD Carotids: Negative for bruit Chest inspection of chest normal Resp normal respiratory effort Auscultation: crackles bilateral lower Cardio Rate: tachycardic Rhythm: regular rhythm Heart Sounds: S1 normal and S2 normal; Negative for click, gallop, murmur or rub Peripheral Pulses: radial pulses present and posterior tibial pulses present bilateral diminished GI soft to palpation Extremity no pedal edema Neuro Neuro Narrative: Alert oriented x 2. Psych Psych Narrative: Has a history of dementia but appears to be alert and oriented x 2 she was confused about the date. Risk Stratification Risk Stratification Applicable: Yes Age >/= 65: Yes >/= 3 CAD Risk Factors (HTN, HLD, DM, family hx of CAD, or current smoker): No Aspirin Use in the Past 7 Days: No Severe Angina (>/= episodes in 24 hours): Yes EKG ST Changes >/= 0.5mm: No Positive Cardiac Marker: Yes OXANA Risk Stratification Score: 3 OXANA % Risk: 13% Risk Charges/Coding Visit Charges Inpatient E&M: 37487 Init Hosp L3 Objective Data Vital Signs: Vital Signs Temp Pulse Resp BP Pulse Ox O2 Del Method O2 Flow Rate 97.6 F L 111 H 111 H 116/76 96 Nasal Cannula 2 09/17/23 03:38 09/17/23 07:00 09/17/23 07:00 09/17/23 07:00 09/17/23 03:38 09/17/23 04:35 09/17/23 04:35 Oxygen Flow Rate (L/min) 2 Oxygen Delivery Method Nasal Cannula Weight: 147 lb 7.828 oz Body Mass Index (BMI) 24.5 Intake & Output: Intake and Output for Last 24 Hours 09/15/23 09/16/23 09/17/23 23:59 23:59 23:59 Intake Total 315.40 / 315.40 Balance 315.40 / 315.40 Lab / Micro Data Attestation: I reviewed the patient's lab results. 09/17/23 06:56 09/17/23 06:56 Labs: Laboratory Results - last 24 hr 09/16/23 00:00: Urine Color Yellow, Urine Clarity Clear, Urine pH 5.0, Ur Specific [place] 1.025, Urine Protein 100 H, Urine Glucose (UA) Normal, Urine Ketones 150 A*, Urine Occult Blood 10 H, Urine Nitrite Negative, Urine Bilirubin 1 H, Urine Urobilinogen 1 H, Ur Leukocyte Esterase Negative, Urine RBC 0 SEEN, Urine WBC 0 SEEN, Ur Squamous Epith Cells 0 SEEN, Amorphous Sediment 1+, Urine Bacteria 0 SEEN, Urine Mucus 0 SEEN 09/16/23 22:40: WBC 15.8 H, RBC 4.99, Hgb 14.8, Hct 46.5, MCV 93.2, MCH 29.7, MCHC 31.8 L, RDW Std Deviation 40.6, RDW Coeff of Gerhard 11.8, Plt Count 409, MPV 9.5, Immature Gran % (Auto) 0.400, Neut % (Auto) 80.1 H, Lymph % (Auto) 13.3 L, [place] % (Auto) 4.9, Eos % (Auto) 1.0, Baso % (Auto) 0.3, Absolute Neuts (auto) 12.7 H, Absolute Lymphs (auto) 2.11, Nucleated RBC % 0, Sodium 140, Potassium 4.5, Chloride 106, Carbon Dioxide 18.0 L, Anion Gap 16 H, BUN 38 H, Creatinine 1.29 H, Est GFR (MDRD) Af Amer 53 L, Est GFR (MDRD) Non-Af 43 L, BUN/Creatinine Ratio 29.5 H, Glucose 269 H, Calcium 10.0, Total Bilirubin 0.70, AST 28, ALT 38, Alkaline Phosphatase 92, Troponin I High Sens 98 H, Total Protein 8.5 H, Albumin 4.1, Globulin 4.4 H, Albumin/Globulin Ratio 0.9 09/17/23 00:15: Lactic Acid 4.4 H* 09/17/23 00:30: Troponin I High Sens 2289 H* 09/17/23 01:00: PT 14.6, INR 1.1, APTT 25.7 09/17/23 04:50: Lactic Acid 2.7 H*, Troponin I High Sens 4278 H* 09/17/23 06:31: POC Glucose 264 H 09/17/23 06:56: WBC 19.6 H, RBC 4.78, Hgb 13.9, Hct 44.1, MCV 92.3, MCH 29.1, MCHC 31.5 L, RDW Std Deviation 40.9, RDW Coeff of Gerhard 12.0, Plt Count 377, MPV 9.8, Immature Gran % (Auto) 0.600, Neut % (Auto) 92.1 H, Lymph % (Auto) 3.8 L, [place] % (Auto) 3.4, Eos % (Auto) 0.0, Baso % (Auto) 0.1, Absolute Neuts (auto) 18.1 H, Absolute Lymphs (auto) 0.75 L, Nucleated RBC % 0, APTT 52.1 H, Sodium 141, Potassium 4.8, Chloride 108 H, Carbon Dioxide 17.0 L, Anion Gap 16 H, BUN 44 H, Creatinine 1.04 H, Estim Creat Clear Calc 45.94, Est GFR (MDRD) Af Amer 67, Est GFR (MDRD) Non-Af 56 L, BUN/Creatinine Ratio 42.3 H, Glucose 270 H, Calcium 9.7, Triglycerides 83, Cholesterol 151, LDL Cholesterol 87, VLDL Cholesterol 17, HDL Cholesterol 47 Rhythm Strip Rhythm Strip: Sinus Tach Rate: 110 Ectopy: None Cardiology Labs/Tests 09/16/23 00:00: Urine Color Yellow, Urine Clarity Clear, Urine pH 5.0, Ur Specific [place] 1.025, Urine Protein 100 H, Urine Glucose (UA) Normal, Urine Ketones 150 A*, Urine Occult Blood 10 H, Urine Nitrite Negative, Urine Bilirubin 1 H, Urine Urobilinogen 1 H, Ur Leukocyte Esterase Negative, Urine RBC 0 SEEN, Urine WBC 0 SEEN 09/16/23 22:40: WBC 15.8 H, RBC 4.99, Hgb 14.8, Hct 46.5, MCV 93.2, MCH 29.7, MCHC 31.8 L, Plt Count 409, MPV 9.5, Immature Gran % (Auto) 0.400, Neut % (Auto) 80.1 H, Lymph % (Auto) 13.3 L, [place] % (Auto) 4.9, Eos % (Auto) 1.0, Baso % (Auto) 0.3, Absolute Neuts (auto) 12.7 H, Nucleated RBC % 0, Sodium 140, Potassium 4.5, Chloride 106, Carbon Dioxide 18.0 L, Anion Gap 16 H, BUN 38 H, Creatinine 1.29 H, Est GFR (MDRD) Af Amer 53 L, Est GFR (MDRD) Non-Af 43 L, BUN/Creatinine Ratio 29.5 H, Glucose 269 H, Calcium 10.0, Total Bilirubin 0.70 09/17/23 00:15: Lactic Acid 4.4 H* 09/17/23 01:00: PT 14.6, INR 1.1, APTT 25.7 09/17/23 04:50: Lactic Acid 2.7 H* 09/17/23 06:56: WBC 19.6 H, RBC 4.78, Hgb 13.9, Hct 44.1, MCV 92.3, MCH 29.1, MCHC 31.5 L, Plt Count 377, MPV 9.8, Immature Gran % (Auto) 0.600, Neut % (Auto) 92.1 H, Lymph % (Auto) 3.8 L, [place] % (Auto) 3.4, Eos % (Auto) 0.0, Baso % (Auto) 0.1, Absolute Neuts (auto) 18.1 H, Nucleated RBC % 0, APTT 52.1 H, Sodium 141, Potassium 4.8, Chloride 108 H, Carbon Dioxide 17.0 L, Anion Gap 16 H, BUN 44 H, Creatinine 1.04 H, Est GFR (MDRD) Af Amer 67, Est GFR (MDRD) Non-Af 56 L, BUN/Creatinine Ratio 42.3 H, Glucose 270 H, Calcium 9.7, Triglycerides 83, Cholesterol 151, LDL Cholesterol 87, VLDL Cholesterol 17, HDL Cholesterol 47 Rhythm: EKG: ECHO: Stress Test: Cardiac Cath: PCI: CT Surgery: Holter monitor: EPS: PPM: CXR: Chest CT Scan: Radiography Diagnostic Testing: Radiology Impression Brain CT 09/16/23 23:05 IMPRESSION: No acute intracranial finding. Electronically Signed: Bhavin Mei MD at 23:30 EDT , Chest X-Ray 09/16/23 23:20 IMPRESSION: No acute pulmonary finding. Electronically Signed: Bhavin Mei MD at 23:31 EDT ,
[2023-09-17] MEDS: 0.9% Normal Saline (1000mL) 1,000 ML 125 ML IV ×3 (08:56→17:59)
[2023-09-17 09:00] LABS: Hemoglobin A1c 4.9 % (3.8-5.6)
[2023-09-17] MEDS: Aspirin E.C. 81 MG Tablet PO (09:01)
[2023-09-17] MEDS: Carvedilol 3.125 MG TABLET PO (09:02)
[2023-09-17] MEDS: Pantoprazole Sodium 20 MG Tablet PO (09:02)
[2023-09-17 12:19] LABS: Bedside Glucose 257 mg/dL (74-106)
--- NOTE | 2023-09-17 12:27 | CASEMGMT ---
Insurance review for hospitals In-network with [place] Full Dual Advantage insurance if transfer is recommended is as follows: [facility], [facility], [facility], [facility], [facility], [facility]), and . Anum Soler, Discharge Planning Asst.
--- NOTE | 2023-09-17 13:45 | CASEMGMT ---
RN CM into pt room for assessment, Pt off the floor having a procedure done. CM will attempt again later.
--- NOTE | 2023-09-17 14:06 | CL.D_ITS ---
Patient Name: LUBA MARSH Study Date: 09/17/2023 Performing: Ethan Hayes MD Ht: 65 inches 165.1 cm : 1955 Wt: 147.7 lbs 66.9 kg Age: 67 Gender: female BSA: 1.74 PROCEDURE(S) PERFORMED DC01-([id number])LHC/COR/LV CLINICAL PROFILE AND INDICATIONS Indications: Suspected CAD, Cardiomyopathy Heart Failure: None Stress/Imaging Stress/Image Study Performed: No CAD Presentations: Non-STEMI. Symptom onset Date/Time: 09/16/23 Time Not Available CONCLUSIONS Mild coronary disease with cardiomyopathy out of proportion to the coronary artery disease and a pattern suggestive of Takotsubo disease. RECOMMENDATIONS Medical therapy DESCRIPTION OF PROCEDURE The patient arrived to the procedure lab. The risks and benefits of the procedure as well as a full description of our services here and current unavailability of surgical backup were fully explained to the patient and/or their significant other prior to the catheterization. The Timeout was completed, verifying the correct patient and procedure. The patient's procedural site was prepped and draped in the usual fashion. Local anesthetic was given subcutaneously to right radial region with Lidocaine 2%. Using a modified Seldinger technique, arterial access was obtained via the right radial artery, a 6Fr sheath was inserted. Left Coronary Artery selective angiography was performed in multiple views using a 5 Fr. 4.0 [place] catheter. Right Coronary Artery selective angiography was then performed in multiple views using a 5 Fr. 4.0 [place] catheter. Left Ventriculography was performed in BLANCO projection using a 5 Fr. [place] catheter.The arterial sheath was pulled and a TR Band was applied for hemostasis CORONARY ANGIOGRAPHY DOMINANCE: Co- Dominant LEFT HEART ASSESSMENT Left Ventricular Ejection Fraction: by LV Gram 20 % Anterior Hypokinesis - Severe. Apical Hypokinesis - Severe. Inferior Apical Hypokinesis - Severe Consistent with Takotsubo cardiomyopathy. LEFT MAIN: Angiographically normal LEFT ANTERIOR DESCENDING ARTERY: Mild luminal irregularities less than 30% CIRCUMFLEX ARTERY: Codominant vessel with first large obtuse marginal branch which bifurcates with no significant stenosis in the origin of the AV groove branch with an 80% stenosis in the mid to distal AV groove branch with 80% stenosis. RIGHT CORONARY ARTERY: Moderate luminal irregularities up to 50% COMPLICATIONS No Complications PROCEDURE MEDICATIONS Versed 1 mg IV Heparin given IA 09/17/2023 13:45:15 Nitro glycerin 25mg / 250ml D5W @ 5 mcg/min IV cont from PCU 09/17/2023 13:37:42 Zofran 4 mg IV 09/17/2023 13:28:18 SUMMARY OF HEMODYNAMIC DATA Time AIR REST ECG 13:35:30 AO 106/72 (89) SA 13:48:06 LV 101/25, 30 13:53:21 LV 100/24, 30 13:53:28 LV 92/32, 38 13:54:18 Signed By Ethan Hayes MD On 09/17/2023 14:06:14 Signed By Ethan Hayes MD On 09/17/2023 14:05:53 Ethan Hayes MD
[2023-09-17] MEDS: Nystatin Powder 15gm Bottle 1 APPLIC TOPICAL ×2 (15:48→21:51)
--- NOTE | 2023-09-17 15:56 | CASEMGMT ---
Per admission questions patient does not have a Healthcare POA or Healthcare LW and patient is not interested in documents. Corinne Beltran BUSINESS DEVELOPMENT ENGINEER [employer] CLERK
--- NOTE | 2023-09-17 16:29 | PN.HOSP_ITS ---
Hospitalist Note Was seen and examined. 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 No radiation. She was concerned about heart attack/NE as her had similar symptoms. Physical exam General: Alert, Oriented x3, Cooperative. Looks frail HEENT: Atraumatic, PERRLA, EOMI, Normocephalic Oral: No Gingival or Mucosal Lesions/ Ulcerations Neck: Supple, No JVD, Negative Carotid Bruits Chest wall/Lungs: Air entry diminished in bilateral lung bases. No crepitation/rhonchi Cardiovascular: Regular rate, Regular Rhythm, Normal S1, Normal S2, systolic murmur. Abdomen: Bowel Sounds Present, Soft, Non Tender, Non-Distended : No dysuria. No renal angle tenderness. No suprapubic tenderness. Extremities: No edema, Capillary Refill Less than 3 Seconds Skin: No rashes, No breakdown Musculoskeletal: No Tenderness to Palpation of Joints or Extremities. Mild decreased muscle bulk of extremities Neurological: Cranial nerves II-XII grossly intact, DTR 2+/4. No acute focal neurological deficit. Psych/Mental Status: Flat affect. Troponins are elevated 98, 2289 and 4278. Patient started on IV heparin drip in ED. Patient taken to [employer]. [employer] Manager shows EF 20% with severe apical hypokinesis, severe inferior and apical hypokinesis consistent with Takotsubo cardiomyopathy. On baby aspirin, lisinopril and carvedilol. Laboratory Results 09/16/23 00:00: Urine Color Yellow, Urine Clarity Clear, Urine pH 5.0, Ur Specific [place] 1.025, Urine Protein 100 H, Urine Glucose (UA) Normal, Urine Ketones 150 A*, Urine Occult Blood 10 H, Urine Nitrite Negative, Urine Bilirubin 1 H, Urine Urobilinogen 1 H, Ur Leukocyte Esterase Negative, Urine RBC 0 SEEN, Urine WBC 0 SEEN, Ur Squamous Epith Cells 0 SEEN, Amorphous Sediment 1+, Urine Bacteria 0 SEEN, Urine Mucus 0 SEEN 09/16/23 22:40: WBC 15.8 H, RBC 4.99, Hgb 14.8, Hct 46.5, MCV 93.2, MCH 29.7, MCHC 31.8 L, RDW Std Deviation 40.6, RDW Coeff of Gerhard 11.8, Plt Count 409, MPV 9.5, Immature Gran % (Auto) 0.400, Neut % (Auto) 80.1 H, Lymph % (Auto) 13.3 L, [place] % (Auto) 4.9, Eos % (Auto) 1.0, Baso % (Auto) 0.3, Absolute Neuts (auto) 12.7 H, Absolute Lymphs (auto) 2.11, Nucleated RBC % 0, Sodium 140, Potassium 4.5, Chloride 106, Carbon Dioxide 18.0 L, Anion Gap 16 H, BUN 38 H, Creatinine 1.29 H, Est GFR (MDRD) Af Amer 53 L, Est GFR (MDRD) Non-Af 43 L, BUN/Creatinine Ratio 29.5 H, Glucose 269 H, Calcium 10.0, Total Bilirubin 0.70, AST 28, ALT 38, Alkaline Phosphatase 92, Troponin I High Sens 98 H, Total Protein 8.5 H, Albumin 4.1, Globulin 4.4 H, Albumin/Globulin Ratio 0.9 09/17/23 00:15: Lactic Acid 4.4 H* 09/17/23 00:30: Troponin I High Sens 2289 H* 09/17/23 01:00: PT 14.6, INR 1.1, APTT 25.7 09/17/23 04:50: Lactic Acid 2.7 H*, Troponin I High Sens 4278 H* 09/17/23 06:31: POC Glucose 264 H 09/17/23 06:56: WBC 19.6 H, RBC 4.78, Hgb 13.9, Hct 44.1, MCV 92.3, MCH 29.1, MC HC 31.5 L, RDW Std Deviation 40.9, RDW Coeff of Gerhard 12.0, Plt Count 377, MPV 9.8, Immature Gran % (Auto) 0.600, Neut % (Auto) 92.1 H, Lymph % (Auto) 3.8 L, [place] % (Auto) 3.4, Eos % (Auto) 0.0, Baso % (Auto) 0.1, Absolute Neuts (auto) 18.1 H, Absolute Lymphs (auto) 0.75 L, Nucleated RBC % 0, APTT 52.1 H, Sodium 141, Potassium 4.8, Chloride 108 H, Carbon Dioxide 17.0 L, Anion Gap 16 H, BUN 44 H, Creatinine 1.04 H, Estim Creat Clear Calc 45.94, Est GFR (MDRD) Af Amer 67, Est GFR (MDRD) Non-Af 56 L, BUN/Creatinine Ratio 42.3 H, Glucose 270 H, Hemoglobin A1c 4.9, Calcium 9.7, Triglycerides 83, Cholesterol 151, LDL Cholesterol 87, VLDL Cholesterol 17, HDL Cholesterol 47 09/17/23 11:57: POC Glucose 257 H
[2023-09-17] MEDS: 0.9% Saline Lock 10 ML Syringe IV ×2 (16:33→19:52)
[2023-09-17] MEDS: Carvedilol 6.25 MG Tablet PO (17:01)
[2023-09-17] MEDS: Ensure Clear 120 ML Liquid PO (18:01)
[2023-09-17 18:26] LABS: Bedside Glucose 323 mg/dL (74-106)
[2023-09-17] MEDS: Atorvastatin Calcium 20 MG Tablet PO (21:51)
[2023-09-17] MEDS: busPIRone 15 MG TABLET PO (21:51)
[2023-09-18] VITALS (15 sets, daily range): BP systolic 86–135; BP diastolic 46–80; PULSE 79–107; RESP 17–23; TEMP 36.1–36.9; O2SAT 88–99
[2023-09-18] MEDS: 0.9% Normal Saline (1000mL) 1,000 ML 125 ML IV (01:41)
[2023-09-18] MEDS: Insulin Lispro 100 UNIT/ML INSULN.PEN SC ×3 (06:41→17:07)
[2023-09-18 07:00] LABS: Bedside Glucose 371 mg/dL (74-106)
[2023-09-18] MEDS: Furosemide 40 MG/4 ML Vial IV (07:40)
[2023-09-18] MEDS: 0.9% Saline Lock 10 ML Syringe IV (07:40)
--- NOTE | 2023-09-18 08:34 | PCM.PN.CARD ---
Subjective Subjective Patient was resting flat in the bed with an increased respiratory rate. When asked she reported that she did seem short of breath. The patient been on 125 cc an hour of saline overnight. She has not been receiving any diuretic therapy. The patient's catheterization revealed an 80% stenosis in the distal circumflex which will be treated medically. She had severe LV dysfunction in a global fashion consistent with Takotsubo's syndrome. Ejection fraction estimated 15 to 20% by echo and cath. Objective Data Vital Signs: Vital Signs Temp Pulse Resp BP Pulse Ox O2 Del Method O2 Flow Rate 97.8 F 91 20 H 135/80 H 93 Nasal Cannula 5 09/18/23 03:09 09/18/23 03:09 09/18/23 03:09 09/18/23 03:09 09/18/23 08:20 09/18/23 08:20 09/18/23 08:20 FiO2 30 09/18/23 03:09 Oxygen Flow Rate (L/min) 5 Oxygen Delivery Method Nasal Cannula Weight: 147 lb 7.828 oz Body Mass Index (BMI) 24.5 Intake & Output: Intake and Output for Last 24 Hours 09/16/23 09/17/23 09/18/23 23:59 23:59 23:59 Intake Total 1838.92 / 1838.92 1670.83 / 1670.83 Output Total 250 / 250 200 / 200 Balance 1588.92 / 1588.92 1470.83 / 1470.83 Lab / Micro Data Attestation: I reviewed the patient's lab results. 09/17/23 06:56 09/17/23 06:56 Labs: Laboratory Results - last 24 hr 09/17/23 06:56: Hemoglobin A1c 4.9 09/17/23 11:57: POC Glucose 257 H 09/17/23 16:21: POC Glucose 323 H 09/18/23 06:40: POC Glucose 371 H Cardiology Labs/Tests 09/17/23 06:56: Hemoglobin A1c 4.9 Rhythm: EKG: ECHO: Stress Test: Cardiac Cath: PCI: CT Surgery: Holter monitor: EPS: PPM: CXR: Chest CT Scan: Radiography Diagnostic Testing: Radiology Impression Echocardiogram 09/17/23 01:40 Interpretation Summary Normal LV size. Severe segmental systolic dysfunction (see wall motion). The left ventricular ejection fraction is 20 %. Above consistent with takutsobo Contrast injection was performed. Ordering Physician: Nicola Potts Performed By: Gladys Fenton RDCS Physical Exam Const alert Orientation / Consciousness: awake HEENT normocephalic Eyes EOMs intact bilaterally Neck no JVD Chest inspection of chest normal Resp Resp Narrative: Noted increased respiratory rate. Auscultation: rales bilateral base and wheezes inspiratory wheezes and anterior Cardio Cardio Narrative: Very distant heart tones. Rate: regular rate Rhythm: regular rhythm Heart Sounds: S1 normal and S2 normal; Negative for click, gallop or murmur Extremity no pedal edema Skin no rashes or lesions noted Neuro Neuro Narrative: Alert but slow to answer questions. Psych Psych Narrative: Patient is slow to answer questions appears very deliberate and sometimes slightly confused. Assessment & Plan Assessment/Plan (1) Takotsubo syndrome: PLAN: Patient's echocardiogram and catheterization are consistent with Takotsubo syndrome. Ejection fraction is estimated at 15 to 20%. We will aggressively titrate guideline directed medical therapy for heart failure with reduced ejection fraction. The patient appeared wet today by physical exam, she had been receiving IV fluids overnight postcatheterization. The IV fluids were discontinued and she is given a single dose of 40 mg IV Lasix. Will continue to monitor her O2 requirements. (2) Essential (primary) hypertension: PLAN: Blisters been adequately controlled gives us room to titrate her guideline directed medical therapy. PLAN: Plan 1. Increase lisinopril to 20 mg twice daily. 2. Await basic metabolic panel this morning if potassium is acceptable would add spironolactone 25 mg daily this afternoon for evening meal time. 3. Continue carvedilol 6.25 mg twice daily. 4. Progress activities as tolerated bed to the bedside and up in the room as tolerated with assistance. Charges/Coding Visit Charges Inpatient E&M: 34221 Subs Hosp L2
[2023-09-18 09:02] LABS: Absolute Lymphocyte Count 1.77 X10^3/uL (0.83-4.51); Absolute Neutrophil Count 23.3 X10^3/uL (2.0-7.7); Basophil# 0.04 X10^3/uL; Basophil% 0.2 % (0-1); Hematocrit 41.6 % (37-47); Hemoglobin 13.2 g/dL (12.0-15.0); Lymphocyte # 1.77 X10^3/ul (0.83-4.51); Lymphocyte % 6.6 % (19-41); Mean Corp Hgb Conc 31.7 g/dL (32-36); Mean Corpuscular Hgb 29.3 pg (27.0-32.0); Mean Corpuscular Volume 92.4 fL (81-99); Mean Platelet Vol. 9.7 fl (6.2-12.0); Monocyte# 1.38 X10^3/uL; Monocyte% 5.2 % (0-10); NRBC Flagged by Analyzer 0 % (0-5); Neutrophil # 23.27 X10^3/uL (2.7-7.7); Neutrophil % 87.3 % (47-70); POSITIVE DIFFERENTIAL YES; Platelet Count 325 K/mm3 (150-450); RBC Distribution Width CV 12.3 % (11.6-14.6); RBC Distribution Width SD 41.5 fl (35.1-43.9); White Blood Count 26.7 K/mm3 (4.4-11.0)
[2023-09-18 09:09] LABS: Differential Indicated SCAN CRITERIA MET
[2023-09-18] MEDS: Ipratropium/Albuterol Sulfate 3 ML AMPUL.NEB INHALATION ×2 (09:20→19:20)
[2023-09-18 09:27] LABS: Anion Gap 12 (5-15); BUN 53 mg/dL (7-18); BUN/Creat Ratio 38.7 RATIO (10-20); Calcium,Total 8.5 mg/dL (8.5-10.1); Chloride 106 mmol/L (98-107); Creatinine, Serum 1.37 mg/dL (0.55-1.02); EST Glomerular Filtration Rate 41 mL/min (>60); Est Glom Filt Rate - Afr Amer 49 mL/min (>60); Estimated Creatinine Clearance 34.87 ml/min; Glucose 319 mg/dL (74-106); Potassium 3.9 mmol/L (3.5-5.1); Sodium Level 136 mmol/L (136-145)
--- NOTE | 2023-09-18 11:00 | CASEMGMT ---
HAMILTON COSTA Face to Face with patient for initial transition planning/care coordination assessment. RN CM introduced self and role at [facility]. Patient lying in bed, alert and oriented. Patient willing to participate in assessment and is able to answer all questions appropriately. Care providers, pharmacy, and demographics verified. Lace: 10 Strata: 3 PCP: Merlin Specialists: none Preferred Pharmacy: [facility] Insurance: [email or web address] [facility] Prescription Benefit: yes Living Will/HPOA: none LNOK: , daughter Living Arrangements: Patient lives with and son in a mobile home with ramp to enter the home. Patient states her and son assist with care Transportation: DME/HHC: Patient states she has shower chair, raised toilet, cane, walker, and wheelchair at home. No previous HHC. Has been to [facility] in [facility] past. Will monitor for home oxgyen at discharge. Patient wishes to discharge home, will monitor progress with therapy. Discussed possible HHC vs SNF pending therapy recommendations. Patient states she has no further needs or concerns at this time. CM to follow for discharge planning needs that may arise. Disposition Plan: TBD, anticipate HHC vs SNF pending progress with therapy. Mia YATES, RN, CM
[2023-09-18] MEDS: Lisinopril 20 MG Tablet PO (11:11)
[2023-09-18] MEDS: Aspirin E.C. 81 MG Tablet PO (11:12)
[2023-09-18] MEDS: Pantoprazole Sodium 20 MG Tablet PO (11:12)
[2023-09-18] MEDS: Tolterodine Tartrate 4 MG CAP.SA PO (11:12)
[2023-09-18] MEDS: busPIRone 15 MG TABLET PO ×2 (11:12→21:46)
[2023-09-18] MEDS: Carvedilol 6.25 MG Tablet PO (11:12)
[2023-09-18] MEDS: Ensure Clear 120 ML Liquid PO (11:13)
[2023-09-18] MEDS: Nystatin Powder 15gm Bottle 1 APPLIC TOPICAL ×2 (11:13→21:45)
[2023-09-18 11:56] LABS: Bedside Glucose 265 mg/dL (74-106)
--- NOTE | 2023-09-18 13:59 | EKG12_ITS ---
Test Reason : Blood Pressure : / mmHG Vent. Rate : 089 BPM Atrial Rate : 089 BPM P-R Int : 116 ms QRS Dur : 134 ms QT Int : 422 ms P-R-T Axes : 037 -33 -02 degrees QTc Int : 513 ms Sinus rhythm with frequent Premature ventricular complexes in a pattern of bigeminy Left axis deviation NSIVCB Abnormal ECG When compared with ECG of 17-SEP-2023 01:53, MANUAL COMPARISON REQUIRED, DATA IS UNCONFIRMED Confirmed by Fabián Azar ([id number]), editorial assistant WILFRID SÁNCHEZ ([id number]) on 09/19/2023 10:27:01 AM Referred By: DIMPLE Confirmed By:Fabián Azar
--- NOTE | 2023-09-18 14:20 | EKG12_ITS ---
Test Reason : NONSTEMI Blood Pressure : / mmHG Vent. Rate : 110 BPM Atrial Rate : 110 BPM P-R Int : 160 ms QRS Dur : 128 ms QT Int : 386 ms P-R-T Axes : 050 -41 076 degrees QTc Int : 522 ms Sinus tachycardia Left axis deviation Non-specific intra-ventricular conduction block Minimal voltage criteria for LVH, may be normal variant ( [place] product ) Cannot rule out Anterior infarct , age undetermined Abnormal ECG Confirmed by Fabián Azar ([id number]), image editor CAIT VIDES ([id number]) on 09/19/2023 9:14:16 AM Referred By: MILENA Confirmed By:Fabián Azar
--- NOTE | 2023-09-18 14:43 | PN.HOSP_ITS ---
Reason for Visit Reason for Visit: Diagnoses Elevated white blood cell count, unspecified (09/17/23) Encephalopathy, unspecified (09/17/23) Essential (primary) hypertension (09/17/23) Unstable angina (09/17/23) Non-ST elevation (NSTEMI) myocardial infarction (09/17/23) Takotsubo syndrome (09/17/23) Noninfective gastroenteritis and colitis, unspecified (09/17/23) Acute kidney failure, unspecified (09/17/23) Chronic kidney disease, stage 3a (09/17/23) Objective Data Objective Data Vital Signs: Vital Signs Temp Pulse Resp BP Pulse Ox O2 Del Method O2 Flow Rate 97.7 F L 92 17 109/65 96 Nasal Cannula 2 09/18/23 10:00 09/18/23 10:00 09/18/23 10:00 09/18/23 10:00 09/18/23 10:00 09/18/23 10:00 09/18/23 10:00 FiO2 30 09/18/23 03:09 Oxygen Flow Rate (L/min) 2 Oxygen Delivery Method Nasal Cannula Weight: 147 lb 7.828 oz Body Mass Index (BMI) 24.5 Intake & Output: Intake and Output for Last 24 Hours 09/16/23 09/17/23 09/18/23 23:59 23:59 23:59 Intake Total 1838.92 / 1838.92 1910.83 / 1910.83 Output Total 250 / 250 800 / 800 Balance 1588.92 / 1588.92 1110.83 / 1110.83 Medical Nutrition Assessment Dietitian: Malnutrition Criteria Met Start: 09/17/23 15:25 Freq: Status: Active Protocol: Document 09/17/23 15:25 SB (Rec: 09/17/23 15:25 SB [id number]) Nutrition Malnutrition Evidence of Malnutrition Exists Yes Malnutrition (severe): Chronic Evidenced By Suboptimal Energy Intake ( Severe),Weight Loss (Severe) Clinical Problem Chronic Disease or Condition Related Malnutrition Etiology severe chronic related to multiple hospitalities in 1 year resulting in inadequate energy intake Signs/Symptoms as evidenced by pt meeting <50 % of estimated nutritional needs and 10.8% unintentional weight loss x 5 months. Status Active Problem Recommendation Dietitian Recommendations/Changes Recommend transitional diet, once diet is advance, with goal of liberal regular diet d /t signs and symptoms of malnutrition. Will add 120ml mixed navarrete ensure clear 4 times with medpass. Reviewed and approved by Katie Webber RD, IDALIA. Lab / Micro Data 09/18/23 08:40 09/18/23 08:40 Labs: Laboratory Results - last 24 hr 09/17/23 16:21: POC Glucose 323 H 09/18/23 06:40: POC Glucose 371 H 09/18/23 08:40: WBC 26.7 H, RBC 4.50, Hgb 13.2, Hct 41.6, MCV 92.4, MCH 29.3, M CHC 31.7 L, RDW Std Deviation 41.5, RDW Coeff of Gerhard 12.3, Plt Count 325, MPV 9.7, Immature Gran % (Auto) 0.700, Neut % (Auto) 87.3 H, Lymph % (Auto) 6.6 L, [place] % (Auto) 5.2, Eos % (Auto) 0.0, Baso % (Auto) 0.2, Absolute Neuts (auto) 23.3 H, Absolute Lymphs (auto) 1.77, Nucleated RBC % 0, Sodium 136, Potassium 3.9, Chloride 106, Carbon Dioxide 18.0 L, Anion Gap 12, BUN 53 H, Creatinine 1.37 H, Estim Creat Clear Calc 34.87, Est GFR (MDRD) Af Amer 49 L, Est GFR (MDRD) Non-Af 41 L, BUN/Creatinine Ratio 38.7 H, Glucose 319 H, Calcium 8.5, Magnesium 2.0 09/18/23 11:23: POC Glucose 265 H Rhythm Strip Rhythm Strip: Sinus Tach Rate: 110 Ectopy: None Physical Exam Narrative Seen and examined. No chest pain or acute shortness of breath. Mild wheezing. Had cardiac cath yesterday which showed Takotsubo cardiomyopathy. Physical exam General: Alert, Oriented x3, Cooperative. Looks frail. Feels fatigue HEENT: Atraumatic, PERRLA, EOMI, Normocephalic Oral: No Gingival or Mucosal Lesions/ Ulcerations Neck: Supple, No JVD, Negative Carotid Bruits Chest wall/Lungs: Air entry diminished in bilateral lung bases. Bilateral wheezing and crepitations. Cardiovascular: Regular rate, Regular Rhythm, Normal S1, Normal S2, systolic murmur. Abdomen: Bowel Sounds Present, Soft, Non Tender, Non-Distended : No dysuria. No renal angle tenderness. No suprapubic tenderness. Extremities: No edema, Capillary Refill Less than 3 Seconds Skin: No rashes, No breakdown Musculoskeletal: No Tenderness to Palpation of Joints or Extremities. Mild decreased muscle bulk of extremities Neurological: Cranial nerves II-XII grossly intact, DTR 2+/4. No acute focal neurological deficit. Psych/Mental Status: Flat affect. Assessment & Plan Assessment/Plan (1) NSTEMI, initial episode of care: PLAN: New from April of this year she has a left bundle branch block. troponins are elevated. Patient was started on IV heparin drip. Cardiac cath on 09/17/2023 shows EF 20%. Severe apical and inferior apical hypokinesis. Anterior hypokinesis severe. Consistent with Takotsubo cardiomyopathy. IV fluid discontinued as patient was getting wet and Lasix 40 mg IV 1 dose ordered. On carvedilol. Discussed with the material disposition inspector. Hold lisinopril as creatinine went up (2) DURAN (acute kidney injury): PLAN: Baseline creatinine is around 0.5-0.6 and today is 1.29. Creatinine increased to 1.37. I suspect this is due to prerenal azotemia from the gastroenteritis and decreased oral intake Plan: IV fluids and monitor. . (3) Acute encephalopathy: PLAN: Patient is very frail and fatigued. Does not seem to be confused. Has dementia. Responding well. Acute encephalopathy resolved. Head CT was negative. Hold potentiating medications, such as gabapentin. Supportive management (4) Gastroenteritis: PLAN: Acute gastroenteritis much improved. Discontinue IV fluid. No abdominal pain or tenderness. PLAN: Plan Chronic conditions * Diabetes mellitus type 2: Holding off on the glipizide for now. Sliding scale insulin. * History of Takotsubo cardiomyopathy: Continue with carvedilol. Repeat echo will be pending. VTE prophylaxis: Not indicated at this time as patient will be anticoagulated on heparin. Charges/Coding Visit Charges Inpatient E&M: 64798 Subs Hosp L2
--- NOTE | 2023-09-18 15:44 | CASEMGMT ---
Discharge Planning A list of?HH providers including quality and resource use data and consistent with the patient's preferred geographic region, medical needs, and insurance network was created in [facility] Guide.? This list was provided to the RN JULISSA. Anum Soler, Discharge Planning Asst.
[2023-09-18 18:29] LABS: Bedside Glucose 278 mg/dL (74-106)
[2023-09-18] MEDS: Atorvastatin Calcium 20 MG Tablet PO (21:46)
--- NOTE | 2023-09-18 22:16 | PCM.HOSP.N ---
Hospitalist Note Patient with BP 86/46, asymptomatic. Was prior on IVFs, d/c and administered IV lasix earlier in the day per Cardiology. Given asymptomatic will hold on IVFs and continue to monitor.
[2023-09-19] VITALS (9 sets, daily range): BP systolic 96–104; BP diastolic 52–77; PULSE 84–90; RESP 14–22; TEMP 36.1–36.9; O2SAT 93–98
[2023-09-19 06:45] LABS: Absolute Lymphocyte Count 2.75 X10^3/uL (0.83-4.51); Absolute Neutrophil Count 12.1 X10^3/uL (2.0-7.7); Basophil# 0.05 X10^3/uL; Basophil% 0.3 % (0-1); Eosinophil# 0.08 X10^3/uL; Eosinophils% 0.5 % (0-5); Hematocrit 36.7 % (37-47); Hemoglobin 11.8 g/dL (12.0-15.0); Lymphocyte # 2.75 X10^3/ul (0.83-4.51); Mean Corp Hgb Conc 32.2 g/dL (32-36); Mean Corpuscular Hgb 29.4 pg (27.0-32.0); Mean Corpuscular Volume 91.3 fL (81-99); Mean Platelet Vol. 10.1 fl (6.2-12.0); Monocyte% 6.2 % (0-10); NRBC Flagged by Analyzer 0.1 % (0-5); Neutrophil # 12.08 X10^3/uL (2.7-7.7); Neutrophil % 74.9 % (47-70); Platelet Count 237 K/mm3 (150-450); RBC Distribution Width CV 12.3 % (11.6-14.6); RBC Distribution Width SD 40.7 fl (35.1-43.9); Red Blood Count 4.02 M/mm3 (4.2-5.4); White Blood Count 16.1 K/mm3 (4.4-11.0)
[2023-09-19 06:54] LABS: Bedside Glucose 157 mg/dL (74-106)
[2023-09-19 07:03] LABS: Anion Gap 7 (5-15); BUN 62 mg/dL (7-18); BUN/Creat Ratio 41.9 RATIO (10-20); Calcium,Total 8.9 mg/dL (8.5-10.1); Chloride 109 mmol/L (98-107); Creatinine, Serum 1.48 mg/dL (0.55-1.02); EST Glomerular Filtration Rate 37 mL/min (>60); Est Glom Filt Rate - Afr Amer 45 mL/min (>60); Estimated Creatinine Clearance 32.28 ml/min; Glucose 186 mg/dL (74-106); Potassium 3.8 mmol/L (3.5-5.1); Sodium Level 139 mmol/L (136-145)
--- NOTE | 2023-09-19 08:36 | PN.CARD_ITS ---
Subjective Subjective Patient reports that she feels much better today she is breathing easier and much more vocal. She is spontaneously starting conversations. She had a negative output of 150 cc with the Lasix yesterday. The IV fluids were discontinued her creatinine went from 1.37-1.48 with a GFR of 37. Her blood pressure is depressed we stopped her LEYDI inhibitor yesterday. And her Coreg will be decreased today. Objective Data Vital Signs: Vital Signs Temp Pulse Resp BP Pulse Ox O2 Del Method O2 Flow Rate 97.0 F L 88 22 H 102/61 98 Nasal Cannula 2 09/19/23 03:00 09/19/23 03:00 09/19/23 03:00 09/19/23 03:00 09/19/23 07:42 09/19/23 07:42 09/19/23 07:42 FiO2 30 09/18/23 03:09 Oxygen Flow Rate (L/min) 2 Oxygen Delivery Method Nasal Cannula Weight: 147 lb 7.828 oz Body Mass Index (BMI) 24.5 Intake & Output: Intake and Output for Last 24 Hours 09/17/23 09/18/23 09/19/23 23:59 23:59 23:59 Intake Total 1838.92 / 1838.92 2310.83 / 2310.83 Output Total 250 / 250 900 / 900 150 / 150 Balance 1588.92 / 1588.92 1410.83 / 1410.83 -150 / -150 Lab / Micro Data Attestation: I reviewed the patient's lab results. 09/19/23 06:32 09/19/23 06:32 Labs: Laboratory Results - last 24 hr 09/18/23 08:40: WBC 26.7 H, RBC 4.50, Hgb 13.2, Hct 41.6, MCV 92.4, MCH 29.3, M CHC 31.7 L, RDW Std Deviation 41.5, RDW Coeff of Gerhard 12.3, Plt Count 325, MPV 9.7, Immature Gran % (Auto) 0.700, Neut % (Auto) 87.3 H, Lymph % (Auto) 6.6 L, [place] % (Auto) 5.2, Eos % (Auto) 0.0, Baso % (Auto) 0.2, Absolute Neuts (auto) 23.3 H, Absolute Lymphs (auto) 1.77, Nucleated RBC % 0, Sodium 136, Potassium 3.9, Chloride 106, Carbon Dioxide 18.0 L, Anion Gap 12, BUN 53 H, Creatinine 1.37 H, Estim Creat Clear Calc 34.87, Est GFR (MDRD) Af Amer 49 L, Est GFR (MDRD) Non-Af 41 L, BUN/Creatinine Ratio 38.7 H, Glucose 319 H, Calcium 8.5, Magnesium 2.0 09/18/23 11:23: POC Glucose 265 H 09/18/23 17:04: POC Glucose 278 H 09/19/23 06:32: WBC 16.1 H, RBC 4.02 L, Hgb 11.8 L, Hct 36.7 L, MCV 91.3, MCH 29.4, MCHC 32.2, RDW Std Deviation 40.7, RDW Coeff of Gerhard 12.3, Plt Count 237, MPV 10.1, Immature Gran % (Auto) 1.100 H, Neut % (Auto) 74.9 H, Lymph % (Auto) 17.0 L, [place] % (Auto) 6.2, Eos % (Auto) 0.5, Baso % (Auto) 0.3, Absolute Neuts (auto) 12.1 H, Absolute Lymphs (auto) 2.75, Nucleated RBC % 0.1, Sodium 139, Potassium 3.8, Chloride 109 H, Carbon Dioxide 23.0, Anion Gap 7, BUN 62 H, C reatinine 1.48 H, Estim Creat Clear Calc 32.28, Est GFR (MDRD) Af Amer 45 L, Est GFR (MDRD) Non-Af 37 L, BUN/Creatinine Ratio 41.9 H, Glucose 186 H, Calcium 8.9 09/19/23 06:37: POC Glucose 157 H Rhythm Strip Rhythm Strip: Sinus Rhythm Rate: 88 Ectopy: PVC(s) Cardiology Labs/Tests 09/18/23 08:40: WBC 26.7 H, RBC 4.50, Hgb 13.2, Hct 41.6, MCV 92.4, MCH 29.3, M CHC 31.7 L, Plt Count 325, MPV 9.7, Immature Gran % (Auto) 0.700, Neut % (Auto) 87.3 H, Lymph % (Auto) 6.6 L, [place] % (Auto) 5.2, Eos % (Auto) 0.0, Baso % (Auto) 0.2, Absolute Neuts (auto) 23.3 H, Nucleated RBC % 0, Sodium 136, Potassium 3.9, Chloride 106, Carbon Dioxide 18.0 L, Anion Gap 12, BUN 53 H, Creatinine 1.37 H, Est GFR (MDRD) Af Amer 49 L, Est GFR (MDRD) Non-Af 41 L, BUN/Creatinine Ratio 38.7 H, Glucose 319 H, Calcium 8.5, Magnesium 2.0 09/19/23 06:32: WBC 16.1 H, RBC 4.02 L, Hgb 11.8 L, Hct 36.7 L, MCV 91.3, MCH 29.4, MCHC 32.2, Plt Count 237, MPV 10.1, Immature Gran % (Auto) 1.100 H, Neut % (Auto) 74.9 H, Lymph % (Auto) 17.0 L, [place] % (Auto) 6.2, Eos % (Auto) 0.5, Baso % (Auto) 0.3, Absolute Neuts (auto) 12.1 H, Nucleated RBC % 0.1, Sodium 139, Potassium 3.8, Chloride 109 H, Carbon Dioxide 23.0, Anion Gap 7, BUN 62 H, C reatinine 1.48 H, Est GFR (MDRD) Af Amer 45 L, Est GFR (MDRD) Non-Af 37 L, B UN/Creatinine Ratio 41.9 H, Glucose 186 H, Calcium 8.9 Rhythm: EKG: ECHO: Stress Test: Cardiac Cath: PCI: CT Surgery: Holter monitor: EPS: PPM: CXR: Chest CT Scan: Physical Exam Const alert Constitutional Narrative: Resting flat in recumbent position in no apparent distress. HEENT normocephalic Neck no JVD Chest inspection of chest normal Resp normal respiratory effort Resp Narrative: Respiratory effort much improved over yesterday. She has no anterior wheezing or rhonchi which were present yesterday. Auscultation: crackles bilateral base Cardio Rate: regular rate Rhythm: regular rhythm Heart Sounds: S1 normal and S2 normal; Negative for click, gallop or murmur Extremity no pedal edema General Extremity: Negative for edema Psych mental status grossly normal Assessment & Plan Assessment/Plan (1) Takotsubo syndrome: PLAN: Patient continues to be difficult to titrate afterload reduction guideline directed medical therapy for LV dysfunction. Her blood pressure is low creatinine is gone up slightly probably related to contrast exposure approximately 36 hours ago. Her ARB and LEYDI inhibitor have been held. Given the low blood pressure we will decrease her Coreg to 3.125 mg twice daily. Her respiratory status appears much improved from yesterday with stopping the IV fluids and giving a single dose of Lasix. If the patient continues to have renal insufficiency improved creasing and were not able to titrate her guideline directed medical therapy consideration may be given of transferring her to an advanced heart failure specialty care. I discussed this with the hospitalist team this morning. At this point in time she appears better than she did yesterday and we will defer any transfer until we see how she responds over the next 24 to 48 hours. (2) Essential (primary) hypertension: PLAN: Her blood pressure is actually on the low side she is off most all of her antihypertensives. Will decrease her Coreg to 3.125 mg today. (3) Non-ST elevation OR (NSTEMI): PLAN: Patient's enzymes were up to around 6000 consistent with her Takotsubo syndrome. This is her second Takotsubo's event she had an initial event in 2018. PLAN: Plan 1. Continue to try and titrate guideline directed medical therapy for LV dysfunction.
[2023-09-19] MEDS: Tolterodine Tartrate 4 MG CAP.SA PO (09:31)
[2023-09-19] MEDS: Pantoprazole Sodium 20 MG Tablet PO (09:31)
[2023-09-19] MEDS: busPIRone 15 MG TABLET PO ×2 (09:31→20:40)
[2023-09-19] MEDS: Aspirin E.C. 81 MG Tablet PO (09:31)
[2023-09-19] MEDS: Acetaminophen 325 MG Tablet 650 MG PO (09:33)
[2023-09-19] MEDS: Carvedilol 3.125 MG TABLET PO ×2 (10:36→20:40)
[2023-09-19] MEDS: Nystatin Powder 15gm Bottle 1 APPLIC TOPICAL ×2 (10:37→20:40)
[2023-09-19 11:56] LABS: Bedside Glucose 148 mg/dL (74-106)
[2023-09-19] MEDS: Ondansetron 4 MG/2 ML Vial IV (13:42)
--- NOTE | 2023-09-19 14:48 | PCM.PN.HOSP ---
Reason for Visit Reason for Visit: Diagnoses Elevated white blood cell count, unspecified (09/17/23) Encephalopathy, unspecified (09/17/23) Essential (primary) hypertension (09/17/23) Unstable angina (09/17/23) Non-ST elevation (NSTEMI) myocardial infarction (09/17/23) Takotsubo syndrome (09/17/23) Noninfective gastroenteritis and colitis, unspecified (09/17/23) Acute kidney failure, unspecified (09/17/23) Chronic kidney disease, stage 3a (09/17/23) Objective Data Objective Data Vital Signs: Vital Signs Temp Pulse Resp BP Pulse Ox O2 Del Method O2 Flow Rate 97.8 F 89 17 103/77 96 Room Air 2 09/19/23 10:34 09/19/23 10:34 09/19/23 10:34 09/19/23 10:34 09/19/23 10:34 09/19/23 14:15 09/19/23 08:41 FiO2 30 09/18/23 03:09 Oxygen Flow Rate (L/min) 2 Oxygen Delivery Method Room Air Weight: 147 lb 7.828 oz Body Mass Index (BMI) 24.5 Intake & Output: Intake and Output for Last 24 Hours 09/17/23 09/18/23 09/19/23 23:59 23:59 23:59 Intake Total 1838.92 / 1838.92 2310.83 / 2310.83 500 / 500 Output Total 250 / 250 900 / 900 150 / 150 Balance 1588.92 / 1588.92 1410.83 / 1410.83 350 / 350 Medical Nutrition Assessment Dietitian: Malnutrition Criteria Met Start: 09/17/23 15:25 Freq: Status: Active Protocol: Document 09/17/23 15:25 SB (Rec: 09/17/23 15:25 SB [id number]) Nutrition Malnutrition Evidence of Malnutrition Exists Yes Malnutrition (severe): Chronic Evidenced By Suboptimal Energy Intake ( Severe),Weight Loss (Severe) Clinical Problem Chronic Disease or Condition Related Malnutrition Etiology severe chronic related to multiple hospitalities in 1 year resulting in inadequate energy intake Signs/Symptoms as evidenced by pt meeting <50 % of estimated nutritional needs and 10.8% unintentional weight loss x 5 months. Status Active Problem Recommendation Dietitian Recommendations/Changes Recommend transitional diet, once diet is advance, with goal of liberal regular diet d /t signs and symptoms of malnutrition. Will add 120ml mixed navarrete ensure clear 4 times with medpass. Reviewed and approved by Katie Webber RD, LD. Lab / Micro Data 09/19/23 06:32 09/19/23 06:32 Labs: Laboratory Results - last 24 hr 09/18/23 17:04: POC Glucose 278 H 09/19/23 06:32: WBC 16.1 H, RBC 4.02 L, Hgb 11.8 L, Hct 36.7 L, MCV 91.3, MCH 29.4, MCHC 32.2, RDW Std Deviation 40.7, RDW Coeff of Gerhard 12.3, Plt Count 237, MPV 10.1, Immature Gran % (Auto) 1.100 H, Neut % (Auto) 74.9 H, Lymph % (Auto) 17.0 L, [place] % (Auto) 6.2, Eos % (Auto) 0.5, Baso % (Auto) 0.3, Absolute Neuts (auto) 12.1 H, Absolute Lymphs (auto) 2.75, Nucleated RBC % 0.1, Sodium 139, Potassium 3.8, Chloride 109 H, Carbon Dioxide 23.0, Anion Gap 7, BUN 62 H, Creatinine 1.48 H, Estim Creat Clear Calc 32.28, Est GFR (MDRD) Af Amer 45 L, Est GFR (MDRD) Non-Af 37 L, BUN/Creatinine Ratio 41.9 H, Glucose 186 H, Calcium 8.9 09/19/23 06:37: POC Glucose 157 H 09/19/23 11:08: POC Glucose 148 H Rhythm Strip Rhythm Strip: Sinus Rhythm Rate: 88 Ectopy: PVC(s) Physical Exam Narrative Seen and examined. Overall patient feeling better with regard to energy. Shortness of breath is better. Patient walking with the help of PT. Had cardiac cath on 09/16 which showed Takotsubo cardiomyopathy. Physical exam General: Alert, Oriented x3, Cooperative. Feels fatigue HEENT: Atraumatic, PERRLA, EOMI, Normocephalic Oral: No Gingival or Mucosal Lesions/ Ulcerations Neck: Supple, No JVD, Negative Carotid Bruits Chest wall/Lungs: Air entry diminished in bilateral lung bases. Wheezing has improved. Cardiovascular: Regular rate, Regular Rhythm, Normal S1, Normal S2, soft systolic murmur. Abdomen: Bowel Sounds Present, Soft, Non Tender, Non-Distended : No dysuria. No renal angle tenderness. No suprapubic tenderness. Extremities: No edema, Capillary Refill Less than 3 Seconds Skin: No rashes, No breakdown Musculoskeletal: No Tenderness to Palpation of Joints or Extremities. Mild decreased muscle bulk of extremities Neurological: Cranial nerves II-XII grossly intact, DTR 2+/4. No acute focal neurological deficit. Psych/Mental Status: Flat affect. Assessment & Plan Assessment/Plan (1) NSTEMI, initial episode of care: PLAN: New from April of this year she has a left bundle branch block. troponins are elevated. Patient was started on IV heparin drip. Cardiac cath on 09/17/2023 shows EF 20%. Severe apical and inferior apical hypokinesis. Anterior hypokinesis severe. Consistent with Takotsubo cardiomyopathy. IV fluid discontinued as patient was getting wet and Lasix 40 mg IV 1 dose ordered. On carvedilol. Discussed with the adult basic studies teacher. Hold lisinopril as creatinine went up 09/18: Discussed with the adult basic studies teacher. For now holding Lasix and lisinopril. Echo shows right ventricle normal in size and systolic function. (2) DURAN (acute kidney injury): PLAN: Baseline creatinine is around 0.5-0.6 and today is 1.29. Creatinine increased to 1.37. I suspect this is due to prerenal azotemia from the gastroenteritis and decreased oral intake 09/18: Creatinine went up to 1.48 BUN 62. Electrolytes in normal range. Bicarb 23. Anion gap 7. Advanced Practice Provider is consulted. Laboratory Results 09/18/23 17:04: POC Glucose 278 H 09/19/23 06:32: WBC 16.1 H, RBC 4.02 L, Hgb 11.8 L, Hct 36.7 L, MCV 91.3, MCH 29.4, MCHC 32.2, RDW Std Deviation 40.7, RDW Coeff of Gerhard 12.3, Plt Count 237, MPV 10.1, Immature Gran % (Auto) 1.100 H, Neut % (Auto) 74.9 H, Lymph % (Auto) 17.0 L, [place] % (Auto) 6.2, Eos % (Auto) 0.5, Baso % (Auto) 0.3, Absolute Neuts (auto) 12.1 H, Absolute Lymphs (auto) 2.75, Nucleated RBC % 0.1, Sodium 139, Potassium 3.8, Chloride 109 H, Carbon Dioxide 23.0, Anion Gap 7, BUN 62 H, Creatinine 1.48 H, Estim Creat Clear Calc 32.28, Est GFR (MDRD) Af Amer 45 L, Est GFR (MDRD) Non-Af 37 L, BUN/Creatinine Ratio 41.9 H, Glucose 186 H, Calcium 8.9 09/19/23 06:37: POC Glucose 157 H 09/19/23 11:08: POC Glucose 148 H (3) Acute encephalopathy: PLAN: Patient is very frail and fatigued. Does not seem to be confused. Has dementia. Responding well. Acute encephalopathy resolved. Head CT was negative. Hold potentiating medications, such as gabapentin. Supportive management 09/18: Acute encephalopathy has resolved. (4) Gastroenteritis: PLAN: Acute gastroenteritis much improved. Discontinue IV fluid. No abdominal pain or tenderness. 09/18: Acute gastroenteritis has resolved. PLAN: Plan Chronic conditions Diabetes mellitus type 2: Holding off on the glipizide for now. Sliding scale insulin. History of Takotsubo cardiomyopathy: Continue with carvedilol. Repeat echo will be pending. VTE prophylaxis: Not indicated at this time as patient will be anticoagulated on heparin. Charges/Coding Visit Charges Inpatient E&M: 32783 Subs Hosp L2
--- NOTE | 2023-09-19 15:30 | CON.PCM.RE_ITS ---
Assessment & Plan Assessment/Plan (1) DURAN (acute kidney injury): PLAN: 67 years old with will preserve kidney function, but presence of chronic proteinuria most likely due to early diabetic nephropathy who presented 3 days ago with the symptoms of GI virus, creatinine was elevated at baseline at 1.29, so I think that the initial insult was dehydration and reduced renal perfusion. Virtually next day she had cardiac catheterization and has been exposed to IV contrast and has developed contrast-induced nephropathy currently with creatinine going up. She got normal electrolytes, no significant acidosis and definitely not fluid overloaded. If anything I believe that she is still a bit dehydrated. Plan She does not need dialysis, she might benefit from a bit of volume expansion, certainly avoid further nephrotoxins. The course of contrast-induced nephropathy is usually 5 to 7 days HPI Consult Data Date of Consult: 09/19/23 HPI Narrative Reason for Consultation: Acute kidney injury HPI Narrative: LUBA MARSH, is a 67 F with normal underlying creatinine, but chronic proteinuria who presented on 09/16/2023 with 4-day history of nausea vomiting and diarrhea. She thought it was indigestion. On admission creatinine 1.29, but improved to 1.06 next day. Because of the positive troponins and chest pain, finding consistent with non-STEMI she underwent cardiac catheterization on 16 September and her creatinine has been on the rise since. She has been diagnosed with coronary artery disease, as well as significant reduction in ejection fraction to 20%. Urinalysis on admission had ketones in the protein, and proteinuria is chronic. Her blood pressure is soft with systolic being in the 90s. Currently she denies shortness of breath, or lower extremity edema or any other signs of fluid overload [facility] Medical History Hiatal hernia Irritable bowel Back pain due to injury Restless legs Injury of head and neck High cholesterol Hearing loss, right Bipolar disorder Depression Anxiety GERD (gastroesophageal reflux disease) Former smoker Sleep apnea Atrial fibrillation Migraines Dementia Closed intertrochanteric fracture of left hip Psoriatic arthritis Nonobstructive atherosclerosis of coronary artery Obesity Type 2 diabetes mellitus Takotsubo syndrome Hyperlipidemia Essential (primary) hypertension NSTEMI (non-ST elevated myocardial infarction) (01/06/18) Home Medications ?Medication ?Instructions ?Recorded ?Last Taken ?Type alendronate 70 mg tablet 70 mg PO SA osteoporosis 01/06/18 Unknown History buspirone 7.5 mg tablet 15 mg PO BID anxiety 01/06/18 Unknown History fluoxetine 40 mg capsule 40 mg PO BID anxiety 01/06/18 Unknown History glipizide 5 mg tablet 10 mg PO DAILY antidiabetic 01/06/18 Unknown History omeprazole 20 mg tablet,delayed 20 mg PO DAILY GERD 01/06/18 Unknown History release carvedilol 3.125 mg tablet 3.125 mg PO BID #90 tabs 07/10/18 Unknown Rx ergocalciferol (vitamin D2) 1,250 50,000 unit PO .COMPLEX supplement 02/12/19 Unknown History mcg (50,000 unit) capsule lisinopril 20 mg tablet 20 mg PO DAILY #30 tabs 02/15/19 Unknown Rx cephalexin 500 mg capsule 500 mg PO TID 7 days #21 caps 04/14/23 Unknown Rx gabapentin 100 mg capsule 100 mg PO Q8H pain 04/14/23 Unknown History meloxicam 7.5 mg tablet 7.5 mg PO DAILY pain 04/14/23 Unknown History ondansetron 4 mg disintegrating 4 mg PO TID PRN nausea and 04/14/23 Unknown Rx tablet vomiting #21 tabs oxybutynin chloride 10 mg 20 mg PO DAILY bladder 04/14/23 Unknown History tablet,extended release 24 hr oxycodone 5 mg tablet 5 mg PO .COMPLEX pain 04/14/23 Unknown History simvastatin 40 mg tablet 40 mg PO DAILY cholesterol 04/14/23 Unknown History turmeric 1 cap PO DAILY supplement 04/14/23 Unknown History Allergy/AdvReac Type Severity Reaction Status Date / Time morphine Allergy Mild confusion Verified 09/16/23 22:21 codeine Allergy Itching Verified 09/16/23 22:21 fentanyl AdvReac confusion Verified 09/16/23 22:21 naproxen AdvReac Other Verified 09/16/23 22:21 Family History Mother Cancer skin Father Cancer prostate Surgical History History of back surgery History of carpal tunnel release of both wrists History of hysterectomy History of left heart catheterization (01/07/18) Social History Smoking Status: Former smoker how long ago did patient quit smokin years ago alcohol intake: never substance use type: does not use caffeine: Yes Type: carbonated beverages Number of servings: 1 ROS Constitutional Constitutional: Reports weight loss; Denies weight gain Eyes Eyes: Denies blindness, blurry vision, change in vision, discongugate gaze, double vision, dry eyes or loss of vision ENT HEENT: Reports dry mouth Cardiovascular Cardiovascular: Reports chest pain Respiratory/Chest Respiratory/Chest: Denies dry cough, dyspnea on exertion, hemoptysis, portable oxygen @ home, productive cough, shortness of breath at rest or wheezing Gastrointestinal Gastrointestinal: Reports abdominal pain, anorexia, diarrhea, dry heaves, nausea and vomiting Genitourinary Genitourinary: Denies change in urinary stream, difficulty urinating, dribbling, dysuria, flank pain, hematuria, nocturia, oliguria, post void dribbling, urinary frequency, urinary hesitancy, urinary incontinence or urinary urgency Musculoskeletal Musculoskeletal: Denies abnormal gait, arthralgias, joint stiffness, joint swelling, muscle cramps or myalgias Integumentary Integumentary: Denies dry skin, erythema, jaundice, lesions, pruritus, rash or skin ulcer Neurologic Neurologic: Denies abnormal gait, burning sensations, confusion, focal weakness, frequent falls, headache(s), numbness, restless legs, seizures, syncope, tremor(s) or weakness Psychiatric Psychiatric: Denies anxiety, confusion, depression or hallucinations Endocrine Endocrinology: Denies cold intolerance, fatigue, heat intolerance, polydipsia or polyuria Hematologic/Lymphatic Hematologic/Lymphatic: Denies anemia, easy bleeding or easy bruising Physical Exam Const alert, oriented x3, no apparent distress and average body habitus General Appearance: well developed Orientation / Consciousness: oriented to person, oriented to place and oriented to time HEENT normocephalic Head and Scalp: atraumatic Neck no lymphadenopathy Resp no use of accessory muscles and clear to auscultation bilaterally Cardio regular rate GI non-tender Auscultation: normoactive bowel sounds Palpation: soft no CVA tenderness Skin no rashes or lesions noted Neuro Sensorium / Orientation: awake and alert Psych cooperative Medical Records Data Medical Nutrition Assessment Dietitian: Malnutrition Criteria Met Start: 09/17/23 15:25 Freq: Status: Active Protocol: Document 09/17/23 15:25 SB (Rec: 09/17/23 15:25 SB [id number]) Nutrition Malnutrition Evidence of Malnutrition Exists Yes Malnutrition (severe): Chronic Evidenced By Suboptimal Energy Intake ( Severe),Weight Loss (Severe) Clinical Problem Chronic Disease or Condition Related Malnutrition Etiology severe chronic related to multiple hospitalities in 1 year resulting in inadequate energy intake Signs/Symptoms as evidenced by pt meeting <50 % of estimated nutritional needs and 10.8% unintentional weight loss x 5 months. Status Active Problem Recommendation Dietitian Recommendations/Changes Recommend transitional diet, once diet is advance, with goal of liberal regular diet d /t signs and symptoms of malnutrition. Will add 120ml mixed navarrete ensure clear 4 times with medpass. Reviewed and approved by Katie Webber RD, LD. Lab / Micro Data Attestation: I reviewed the patient's lab results. 09/19/23 06:32 09/19/23 06:32 Labs: Laboratory Results - last 24 hr 09/18/23 17:04: POC Glucose 278 H 09/19/23 06:32: WBC 16.1 H, RBC 4.02 L, Hgb 11.8 L, Hct 36.7 L, MCV 91.3, MCH 29.4, MCHC 32.2, RDW Std Deviation 40.7, RDW Coeff of Gerhard 12.3, Plt Count 237, MPV 10.1, Immature Gran % (Auto) 1.100 H, Neut % (Auto) 74.9 H, Lymph % (Auto) 17.0 L, [place] % (Auto) 6.2, Eos % (Auto) 0.5, Baso % (Auto) 0.3, Absolute Neuts (auto) 12.1 H, Absolute Lymphs (auto) 2.75, Nucleated RBC % 0.1, Sodium 139, Potassium 3.8, Chloride 109 H, Carbon Dioxide 23.0, Anion Gap 7, BUN 62 H, C reatinine 1.48 H, Estim Creat Clear Calc 32.28, Est GFR (MDRD) Af Amer 45 L, Est GFR (MDRD) Non-Af 37 L, BUN/Creatinine Ratio 41.9 H, Glucose 186 H, Calcium 8.9 09/19/23 06:37: POC Glucose 157 H 09/19/23 11:08: POC Glucose 148 H Rhythm Strip Rhythm Strip: Sinus Rhythm Rate: 88 Ectopy: PVC(s)
[2023-09-19] MEDS: Pantoprazole Sodium 40 MG in 0.9% Normal Saline (100mL MB+) 100 ML 330 MG IV ×2 (16:27→20:50)
[2023-09-19 18:06] LABS: Bedside Glucose 157 mg/dL (74-106)
[2023-09-19] MEDS: Atorvastatin Calcium 20 MG Tablet PO (20:40)
[2023-09-20 03:30] VITALS: BP 101/56; PULSE 88; RESP 17; TEMP 36.8; O2SAT 93
[2023-09-20 06:35] LABS: Absolute Lymphocyte Count 2.47 X10^3/uL (0.83-4.51); Absolute Neutrophil Count 6.1 X10^3/uL (2.0-7.7); Basophil# 0.01 X10^3/uL; Basophil% 0.1 % (0-1); Eosinophil# 0.17 X10^3/uL; Eosinophils% 1.8 % (0-5); Hematocrit 32.9 % (37-47); Hemoglobin 10.7 g/dL (12.0-15.0); Lymphocyte # 2.47 X10^3/ul (0.83-4.51); Mean Corp Hgb Conc 32.5 g/dL (32-36); Mean Corpuscular Hgb 30.1 pg (27.0-32.0); Mean Corpuscular Volume 92.7 fL (81-99); Mean Platelet Vol. 9.9 fl (6.2-12.0); Monocyte# 0.67 X10^3/uL; Monocyte% 7.1 % (0-10); NRBC Flagged by Analyzer 0 % (0-5); Neutrophil # 6.13 X10^3/uL (2.7-7.7); Neutrophil % 64.6 % (47-70); Platelet Count 201 K/mm3 (150-450); RBC Distribution Width CV 12.2 % (11.6-14.6); RBC Distribution Width SD 41.7 fl (35.1-43.9); Red Blood Count 3.55 M/mm3 (4.2-5.4); White Blood Count 9.5 K/mm3 (4.4-11.0)
[2023-09-20 07:10] LABS: Bedside Glucose 115 mg/dL (74-106)
[2023-09-20 07:20] LABS: Anion Gap 7 (5-15); BUN 42 mg/dL (7-18); BUN/Creat Ratio 40.4 RATIO (10-20); Chloride 111 mmol/L (98-107); Creatinine, Serum 1.04 mg/dL (0.55-1.02); EST Glomerular Filtration Rate 56 mL/min (>60); Est Glom Filt Rate - Afr Amer 67 mL/min (>60); Estimated Creatinine Clearance 45.94 ml/min; Glucose 139 mg/dL (74-106); Potassium 3.6 mmol/L (3.5-5.1); Sodium Level 141 mmol/L (136-145)
--- NOTE | 2023-09-20 08:14 | PN.CARD_ITS ---
Subjective Subjective Patient reports she is feeling much better today. She is breathing easier she has been up in the chair without restrictions. Objective Data Vital Signs: Vital Signs Temp Pulse Resp BP Pulse Ox O2 Del Method O2 Flow Rate 98.2 F 88 17 101/56 L 93 Room Air 2 09/20/23 03:30 09/20/23 03:30 09/20/23 03:30 09/20/23 03:30 09/20/23 03:30 09/20/23 04:04 09/19/23 08:41 FiO2 30 09/18/23 03:09 Oxygen Flow Rate (L/min) 2 Oxygen Delivery Method Room Air Weight: 147 lb 7.828 oz Body Mass Index (BMI) 24.5 Intake & Output: Intake and Output for Last 24 Hours 09/18/23 09/19/23 09/20/23 23:59 23:59 23:59 Intake Total 2310.83 / 2310.83 720 / 840 240 / 240 Output Total 900 / 900 150 / 150 500 / 500 Balance 1410.83 / 1410.83 570 / 690 -260 / -260 Lab / Micro Data Attestation: I reviewed the patient's lab results. 09/20/23 06:24 09/20/23 06:24 Labs: Laboratory Results - last 24 hr 09/19/23 11:08: POC Glucose 148 H 09/19/23 16:29: POC Glucose 157 H 09/20/23 06:24: WBC 9.5, RBC 3.55 L, Hgb 10.7 L, Hct 32.9 L, MCV 92.7, MCH 30.1, MCHC 32.5, RDW Std Deviation 41.7, RDW Coeff of Gerhard 12.2, Plt Count 201, MPV 9.9, Immature Gran % (Auto) 0.400, Neut % (Auto) 64.6, Lymph % (Auto) 26.0, [place] % (Auto) 7.1, Eos % (Auto) 1.8, Baso % (Auto) 0.1, Absolute Neuts (auto) 6.1, Absolute Lymphs (auto) 2.47, Nucleated RBC % 0, Sodium 141, Potassium 3.6, C hloride 111 H, Carbon Dioxide 23.0, Anion Gap 7, BUN 42 H, Creatinine 1.04 H, Estim Creat Clear Calc 45.94, Est GFR (MDRD) Af Amer 67, Est GFR (MDRD) Non-Af 56 L, BUN/Creatinine Ratio 40.4 H, Glucose 139 H, Calcium 9.0 09/20/23 06:43: POC Glucose 115 H Rhythm Strip Rhythm Strip: Sinus Rhythm Rate: 80 Ectopy: PVC(s) Cardiology Labs/Tests 09/20/23 06:24: WBC 9.5, RBC 3.55 L, Hgb 10.7 L, Hct 32.9 L, MCV 92.7, MCH 30.1, MCHC 32.5, Plt Count 201, MPV 9.9, Immature Gran % (Auto) 0.400, Neut % (Auto) 64.6, Lymph % (Auto) 26.0, [place] % (Auto) 7.1, Eos % (Auto) 1.8, Baso % (Auto) 0.1, Absolute Neuts (auto) 6.1, Nucleated RBC % 0, Sodium 141, Potassium 3.6, C hloride 111 H, Carbon Dioxide 23.0, Anion Gap 7, BUN 42 H, Creatinine 1.04 H, Est GFR (MDRD) Af Amer 67, Est GFR (MDRD) Non-Af 56 L, BUN/Creatinine Ratio 40.4 H, Glucose 139 H, Calcium 9.0 Rhythm: EKG: ECHO: Stress Test: Cardiac Cath: PCI: CT Surgery: Holter monitor: EPS: PPM: CXR: Chest CT Scan: Physical Exam Const alert Constitutional Narrative: Patient seems much brighter today still has some mild confusion and just appears to have some mild dementia. HEENT normocephalic Eyes EOMs intact bilaterally Neck no JVD Chest inspection of chest normal Resp normal respiratory effort and clear to auscultation bilaterally Cardio Rate: regular rate Rhythm: regular rhythm Heart Sounds: S1 normal and S2 normal; Negative for click, gallop or murmur Extremity no pedal edema Psych Psych Narrative: He is slow to answer question but is much brighter today than has been Assessment & Plan Assessment/Plan (1) Non-ST elevation AR (NSTEMI): PLAN: Patient did have significant bump in her enzymes related to Takotsubo syndrome. She had minimal coronary disease only 1 distal circumflex vessel had an 80% stenosis which will be treated medically. (2) DURAN (acute kidney injury): PLAN: It appears the acute kidney injury was primarily related to contrast exposure and as she is now returning to her baseline creatinine 1.04 this morning. Would recommend consider reinstituting lisinopril at 20 mg daily her previous home dose. The patient's blood pressure is tolerating the beta-chacha at Coreg 3.125 mg twice daily. (3) Takotsubo syndrome: PLAN: It has been difficult to titrate the patient's guideline directed medical therapy for LV recovery due to her renal insufficiency and blood pressure. Currently tolerating Coreg 3.125 mg twice daily blood pressure and improving renal function should she report reinstitution of her home lisinopril 20 mg daily in the near future. The patient should be reevaluated in the [facility] office in 7 to 10 days with one of the advanced practitioners for titration of medications and reevaluation of her renal function. PLAN: Plan 1. Continue Coreg 3.125 mg twice daily. 2. Consider reinstituting lisinopril 20 mg daily and monitoring creatinine in the next 24 to 48 hours. 3. When discharged should follow-up in the [facility] with advanced practitioner for titration of guideline directed medical therapy for LV recovery from Takotsubo syndrome. This should be scheduled in 7 to 10 days after discharge[address] 4[address] Dr. Jimenez will be assuming the service. Please contact him if further assistance is needed. Charges/Coding Visit Charges Inpatient E&M: 89320 [facility] Hosp L3
[2023-09-20 08:50] VITALS: O2SAT 95; O2SAT 97
[2023-09-20 09:09] VITALS: BP 108/58; PULSE 93; RESP 18; TEMP 36.5; O2SAT 95
[2023-09-20] MEDS: Tolterodine Tartrate 4 MG CAP.SA PO (09:10)
[2023-09-20] MEDS: Nystatin Powder 15gm Bottle 1 APPLIC TOPICAL (09:10)
[2023-09-20] MEDS: Aspirin E.C. 81 MG Tablet PO (09:10)
[2023-09-20] MEDS: Carvedilol 3.125 MG TABLET PO (09:10)
[2023-09-20] MEDS: busPIRone 15 MG TABLET PO (09:10)
[2023-09-20] MEDS: Pantoprazole Sodium 40 MG in 0.9% Normal Saline (100mL MB+) 100 ML 330 MG IV (09:13)
--- NOTE | 2023-09-20 09:42 | CASEMGMT ---
Addendum entered by Mia Gutierrez 09/20/23 14:12: HAMILTON COSTA updated by [facility] that they are able to accept the patient with start of care for tomorrow. RN JULISSA updated patient, patient denies further needs. RN JULISSA updated discharge plan Original Note: HAMILTON CM in to discuss needs at discharge. RN CM discuss HHC at discharge. Patient is agreeable to C, HHC list provided to patient. Patient states she has had [facility] the past and prefers them. Patient denied further needs or concerns. HAMILTON COSTA made referral to [facility], awaiting acceptance.
[2023-09-20 09:53] VITALS: O2SAT 96
--- NOTE | 2023-09-20 12:13 | DCINST_ITS ---
Discharge Instructions Diet Discharge Diet: 8 Cup Fluid Restriction and 2000 mg Sodium Diet Activity Discharge Activity: Return to Normal Activity Weight Bearing Status: Weight bearing as tolerated Dressing / Incision Call your doctor if you observe: Fever of 101 or Higher, Coldness, Increased Pain, Numbness or Tingling, Change in Color, Inability to urinate, Inability to have a bowel movement, Using more than 1 pad per hour, Shortness of breath, Dizziness, Fainting spells, Swelling in the ankles, Chest pain, Prolonged hiccupping, Increased palpitations (irregular heartbeat) and Calf discomfort Follow Up Care When: IN 2 WEEKS Test Results: Test results from this visit will be discussed in further detail at your follow- up appointment, if applicable. Discharge Plan Admission Admit Date/Time: 09/17/23 00:35 Primary Reason for Your Visit: Takotsubo cardiomyopathy, DURAN due to AMINAH Attending Provider: Ronny Romo Primary Care Provider: Rupal Boyer Consulting Providers: Nicola Potts; Martina Rendon; Ananya Jaramillo Instructions Additional Instructions / Restrictions: Follow-up BMP in 1 week with PCP/cardiology Discharge Orders/Prescriptions Prescriptions: New aspirin 81 mg Tablet,Delayed Release (Dr/Ec) 81 mg PO BREAKFAST 30 Days Qty: 30 3RF pantoprazole [Protonix] 40 mg tablet,delayed release (DR/EC) 40 mg PO BID Qty: 60 1RF Continued fluoxetine 40 MG capsule 40 mg PO BID alendronate 70 MG tablet 70 mg PO SA Rx Instructions: unknown buspirone 7.5 MG tablet 15 mg PO BID glipizide 5 MG tablet 10 mg PO DAILY ergocalciferol (vitamin D2) 50,000 UNIT capsule 50,000 unit PO .COMPLEX Patient Comments: Unsure day patient takes Rx Instructions: 50,000 units orally Q 2 Weeks; 50,000 units orally; cephalexin 500 mg capsule 500 mg PO TID 7 Days Qty: 21 0RF ondansetron 4 mg tablet,disintegrating 4 mg PO TID PRN (Reason: nausea and vomiting) Qty: 21 0RF simvastatin 40 mg tablet 40 mg PO DAILY oxybutynin chloride 10 mg tablet extended release 24hr 20 mg PO DAILY oxycodone 5 mg tablet 5 mg PO .COMPLEX Patient Comments: take 1 tablet by mouth three times a day and 1 tablet twice a day if needed for pain Rx Instructions: take 1 tablet by mouth three times a day and 1 tablet twice a day if needed for pain gabapentin 100 mg capsule 100 mg PO Q8H turmeric 1,000 mg capsule 1 cap PO DAILY Changed carvedilol 3.125 mg tablet 6.25 mg PO BID Qty: 90 3RF Rx Instructions: heart/ blood pressure Held lisinopril 20 MG tablet 20 mg PO DAILY Qty: 30 0RF Hold Instructions: Hold for 1 week meloxicam 7.5 mg tablet 7.5 mg PO DAILY Hold Instructions: Kidney failure Discontinued omeprazole 20 MG tablet,delayed release (DR/EC) 20 mg PO DAILY Referrals / Follow Up: Jameson Carrillo MD [Med Staff - Consulting] - Within 1 Month (For DURAN) Fabián Azar MD [Med Staff - Active Staff] - Within 1 Week Christopher Huang DO [Med Staff - Active Staff] - Within 1 Month Rupal Boyer NP-C [Primary Care Provider] - Within 2 Weeks Disposition Disposition (needs filled in before D/C Order can be placed): Home Health Service
[2023-09-20 12:15] LABS: Bedside Glucose 131 mg/dL (74-106)
--- NOTE | 2023-09-20 12:25 | DS.PCM_ITS ---
Providers Date of Admission: 09/17/23 Date of Discharge: 09/20/23 Primary Care Physician: ORESTES Cano Consultations 09/17/23 01:40 Consult: Cardiology Routine Consulting Provider: Martina Rendon Reason for Consult: Chest Pain EMERGENT Consult: No Notified: Yes Date Notified: 09/17/23 Time Notified: 00:40 Method of Notification: ED Physician Initiated 09/19/23 07:55 Consult: Nephrology Routine Consulting Provider: Ananya Jaramillo Reason for Consult: DURAN on CKD, AMINAH EMERGENT Consult: No Notified: Yes Date Notified: 09/19/23 Time Notified: 07:55 Method of Notification: Verbal Reason For Visit: NSTEMI Diagnosis Discharge Diagnosis (1) Non-ST elevation MN (NSTEMI): Status: Acute Code(s): I21.4 - Non-ST elevation (NSTEMI) myocardial infarction Plan: New event from April of this year she has a left bundle branch block. troponins are elevated. Patient was started on IV heparin drip. Cardiac cath on 09/17/2023 shows EF 20%. Severe apical and inferior apical hypokinesis. Anterior hypokinesis severe. Consistent with Takotsubo cardiomyopathy. IV fluid discontinued as patient was getting wet and Lasix 40 mg IV 1 dose ordered. On carvedilol. Discussed with the manufacturing controls engineer. Hold lisinopril as creatinine went up 09/18: Discussed with the manufacturing controls engineer. For now holding Lasix and lisinopril. Echo shows right ventricle normal in size and systolic function. 09/19: Discussed with the manufacturing controls engineer. For now hold lisinopril until her DURAN gets completely resolved and BP improves. Currently SBP in 100s. Hoping that her EF will improve. Follow-up Dr. Fabián Azar in about 1 week to 10 days time. On carvedilol increased to 6.25 mg twice daily. On baby aspirin prescription given. Clinical Impression(s) from Imaging Studies Brain CT 09/16/23 23:05 IMPRESSION: No acute intracranial finding. Electronically Signed: Bhavin Mei MD at 23:30 EDT , Chest X-Ray 09/16/23 23:20 IMPRESSION: No acute pulmonary finding. Echocardiogram 09/17/23 01:40 Interpretation Summary Normal LV size. Severe segmental systolic dysfunction (see wall motion). The left ventricular ejection fraction is 20 %. Above consistent with takutsobo Contrast injection was performed. (2) DURAN (acute kidney injury): Status: Acute Code(s): N17.9 - Acute kidney failure, unspecified Plan: Baseline creatinine is around 0.5-0.6 and today is 1.29. Creatinine increased to 1.37. I suspect this is due to prerenal azotemia from the gastroenteritis and decreased oral intake 09/18: Creatinine went up to 1.48 BUN 62. Electrolytes in normal range. Bicarb 23. Anion gap 7. Veterinary Bacteriologist is consulted. 09/19: Creatinine improved to 1.04. Her baseline creatinine is still 0.5-0.6 therefore probably it will take few more days. Advised follow-up BMP in 1 week with PCP. Rest as mentioned above regarding holding lisinopril. Follow-up with in process inspector in about 1 month's time. Laboratory Results 09/19/23 16:29: POC Glucose 157 H 09/20/23 06:24: WBC 9.5, RBC 3.55 L, Hgb 10.7 L, Hct 32.9 L, MCV 92.7, MCH 30.1, MCHC 32.5, RDW Std Deviation 41.7, RDW Coeff of Gerhard 12.2, Plt Count 201, MPV 9.9, Immature Gran % (Auto) 0.400, Neut % (Auto) 64.6, Lymph % (Auto) 26.0, [place] % (Auto) 7.1, Eos % (Auto) 1.8, Baso % (Auto) 0.1, Absolute Neuts (auto) 6.1, Absolute Lymphs (auto) 2.47, Nucleated RBC % 0, Sodium 141, Potassium 3.6, C hloride 111 H, Carbon Dioxide 23.0, Anion Gap 7, BUN 42 H, Creatinine 1.04 H, Estim Creat Clear Calc 45.94, Est GFR (MDRD) Af Amer 67, Est GFR (MDRD) Non-Af 56 L, BUN/Creatinine Ratio 40.4 H, Glucose 139 H, Calcium 9.0 08/08/24 06:43: POC Glucose 115 H 09/20/23 11:19: POC Glucose 131 H (3) Takotsubo syndrome: Status: Suspected Code(s): I51.81 - Takotsubo syndrome Plan Chronic conditions * Diabetes mellitus type 2: Holding off on the glipizide for now. Sliding scale insulin. 09/19: Glucose is controlled. * History of Takotsubo cardiomyopathy: Continue with carvedilol. VTE prophylaxis: Not indicated at this time as patient will be anticoagulated on heparin. Medications at Discharge Home Medications alendronate 70 mg tablet 70 mg PO SA osteoporosis 01/06/18 buspirone 7.5 mg tablet 15 mg PO BID anxiety 01/06/18 fluoxetine 40 mg capsule 40 mg PO BID anxiety 01/06/18 glipizide 5 mg tablet 10 mg PO DAILY antidiabetic 01/06/18 ergocalciferol (vitamin D2) 1,250 mcg (50,000 unit) capsule 50,000 unit PO .COMPLEX supplement 02/12/19 lisinopril 20 mg tablet 20 mg PO DAILY #30 tabs 02/15/19 cephalexin 500 mg capsule 500 mg PO TID 7 days #21 caps 04/14/23 gabapentin 100 mg capsule 100 mg PO Q8H pain 04/14/23 meloxicam 7.5 mg tablet 7.5 mg PO DAILY pain 04/14/23 ondansetron 4 mg disintegrating tablet 4 mg PO TID PRN nausea and vomiting #21 tabs 04/14/23 oxybutynin chloride 10 mg tablet,extended release 24 hr 20 mg PO DAILY bladder 04/14/23 oxycodone 5 mg tablet 5 mg PO .COMPLEX pain 04/14/23 simvastatin 40 mg tablet 40 mg PO DAILY cholesterol 04/14/23 turmeric 1 cap PO DAILY supplement 04/14/23 aspirin 81 mg tablet,delayed release 81 mg PO BREAKFAST 30 days #30 tabs 09/20/23 carvedilol 3.125 mg tablet 6.25 mg (2 x 3.125 mg) PO BID #90 tabs 09/20/23 pantoprazole 40 mg tablet,delayed release (Protonix) 40 mg PO BID #60 tabs 09/20/23 Physical Exam Narrative Seen and examined. Overall patient feeling better with regard to energy. She is walking with physical therapy. Shortness of breath has improved. No oliguria. Had cardiac cath on 09/16 which showed Takotsubo cardiomyopathy. Physical exam General: Alert, Oriented x3, Cooperative. Feels fatigue HEENT: Atraumatic, PERRLA, EOMI, Normocephalic Oral: No Gingival or Mucosal Lesions/ Ulcerations Neck: Supple, No JVD, Negative Carotid Bruits Chest wall/Lungs: Air entry diminished in bilateral lung bases. Wheezing has improved. Cardiovascular: Regular rate, Regular Rhythm, Normal S1, Normal S2, soft systolic murmur. Abdomen: Bowel Sounds Present, Soft, Non Tender, Non-Distended : No dysuria. No renal angle tenderness. No suprapubic tenderness. Extremities: No edema, Capillary Refill Less than 3 Seconds Skin: No rashes, No breakdown Musculoskeletal: No Tenderness to Palpation of Joints or Extremities. Mild decreased muscle bulk of extremities Neurological: Cranial nerves II-XII grossly intact, DTR 2+/4. No acute focal neurological deficit. Psych/Mental Status: Flat affect. Medical Records Data Medical Nutrition Assessment Dietitian: Malnutrition Criteria Met Start: 09/17/23 15:25 Freq: Status: Active Protocol: Document 09/17/23 15:25 SB (Rec: 09/17/23 15:25 SB [id number]) Nutrition Malnutrition Evidence of Malnutrition Exists Yes Malnutrition (severe): Chronic Evidenced By Suboptimal Energy Intake ( Severe),Weight Loss (Severe) Clinical Problem Chronic Disease or Condition Related Malnutrition Etiology severe chronic related to multiple hospitalities in 1 year resulting in inadequate energy intake Signs/Symptoms as evidenced by pt meeting <50 % of estimated nutritional needs and 10.8% unintentional weight loss x 5 months. Status Active Problem Recommendation Dietitian Recommendations/Changes Recommend transitional diet, once diet is advance, with goal of liberal regular diet d /t signs and symptoms of malnutrition. Will add 120ml mixed navarrete ensure clear 4 times with medpass. Reviewed and approved by Katie Webber RD, LD. Weight / BMI Weight Weight: 147 lb 7.828 oz Body Mass Index (BMI) 24.5 ABG / Lab / Microbiology Data 09/20/23 06:24 09/20/23 06:24 Laboratory: Laboratory Results - last 24 hr 09/19/23 16:29: POC Glucose 157 H 09/20/23 06:24: WBC 9.5, RBC 3.55 L, Hgb 10.7 L, Hct 32.9 L, MCV 92.7, MCH 30.1, MCHC 32.5, RDW Std Deviation 41.7, RDW Coeff of Gerhard 12.2, Plt Count 201, MPV 9.9, Immature Gran % (Auto) 0.400, Neut % (Auto) 64.6, Lymph % (Auto) 26.0, [place] % (Auto) 7.1, Eos % (Auto) 1.8, Baso % (Auto) 0.1, Absolute Neuts (auto) 6.1, Absolute Lymphs (auto) 2.47, Nucleated RBC % 0, Sodium 141, Potassium 3.6, C hloride 111 H, Carbon Dioxide 23.0, Anion Gap 7, BUN 42 H, Creatinine 1.04 H, Estim Creat Clear Calc 45.94, Est GFR (MDRD) Af Amer 67, Est GFR (MDRD) Non-Af 56 L, BUN/Creatinine Ratio 40.4 H, Glucose 139 H, Calcium 9.0 09/20/23 06:43: POC Glucose 115 H 09/20/23 11:19: POC Glucose 131 H D/C Instructions Discharge Diet: 8 Cup Fluid Restriction and 2000 mg Sodium Diet Weight Bearing Status: Weight bearing as tolerated Call your doctor if you observe: Fever of 101 or Higher, Coldness, Increased Pain, Numbness or Tingling, Change in Color, Inability to urinate, Inability to have a bowel movement, Using more than 1 pad per hour, Shortness of breath, Dizziness, Fainting spells, Swelling in the ankles, Chest pain, Prolonged hiccupping, Increased palpitations (irregular heartbeat) and Calf discomfort When: IN 2 WEEKS Meaningful Use Info Meaningful Use Meaningful Use Diagnoses (Choose all that apply): AMI AMI/Post PCI/Angioplasty Aspirin given w/in 24hrs of arrival?: Yes ASA at discharge?: Yes Statins at discharge?: Yes Damir/ARB at discharge?: No Reason Damir/ARB not ordered:: Worsening renal function and Hypotension Beta Hsorty at discharge?: Yes Done w/ Acute MN measure.: Yes Ischemic Stroke Statin Dosing Therapy Reference: STATIN DOSE THERAPY REFERENCE: * Patients > 75 years receive moderate or high dose statin therapy. * Patients 75 years or YOUNGER should receive HIGH intensity statin dose unless contraindicated. You will be required to document reason for non-treatment if statin daily dose does not meet guidelines. HIGH DOSE STATIN THERAPY DAILY Atorvastatin > than or = to 40 mg Rosuvastatin > than or = to 20 mg Amlodipine + Atorvastatin > than or = to 2.5/40 mg Ezetimibe + Simvastatin 10/80 mg Simvastatin 80mg Discharge Plan Admission Admit Date/Time: 09/17/23 00:35 Primary Reason for Your Visit: Takotsubo cardiomyopathy, DURAN due to AMINAH Attending Provider: Ronny Romo Primary Care Provider: Rupal Boyer Consulting Providers: Nicola Potts; Martina Rendon; Ananya Jaramillo Instructions Additional Instructions / Restrictions: Follow-up BMP in 1 week with PCP/cardiology Discharge Orders/Prescriptions Prescriptions: New aspirin 81 mg Tablet,Delayed Release (Dr/Ec) 81 mg PO BREAKFAST 30 Days Qty: 30 3RF pantoprazole [Protonix] 40 mg tablet,delayed release (DR/EC) 40 mg PO BID Qty: 60 1RF Continued fluoxetine 40 MG capsule 40 mg PO BID alendronate 70 MG tablet 70 mg PO SA Rx Instructions: unknown buspirone 7.5 MG tablet 15 mg PO BID glipizide 5 MG tablet 10 mg PO DAILY ergocalciferol (vitamin D2) 50,000 UNIT capsule 50,000 unit PO .COMPLEX Patient Comments: Unsure day patient takes Rx Instructions: 50,000 units orally Q 2 Weeks; 50,000 units orally; cephalexin 500 mg capsule 500 mg PO TID 7 Days Qty: 21 0RF ondansetron 4 mg tablet,disintegrating 4 mg PO TID PRN (Reason: nausea and vomiting) Qty: 21 0RF simvastatin 40 mg tablet 40 mg PO DAILY oxybutynin chloride 10 mg tablet extended release 24hr 20 mg PO DAILY oxycodone 5 mg tablet 5 mg PO .COMPLEX Patient Comments: take 1 tablet by mouth three times a day and 1 tablet twice a day if needed for pain Rx Instructions: take 1 tablet by mouth three times a day and 1 tablet twice a day if needed for pain gabapentin 100 mg capsule 100 mg PO Q8H turmeric 1,000 mg capsule 1 cap PO DAILY Changed carvedilol 3.125 mg tablet 6.25 mg PO BID Qty: 90 3RF Rx Instructions: heart/ blood pressure Held lisinopril 20 MG tablet 20 mg PO DAILY Qty: 30 0RF Hold Instructions: Hold for 1 week meloxicam 7.5 mg tablet 7.5 mg PO DAILY Hold Instructions: Kidney failure Discontinued omeprazole 20 MG tablet,delayed release (DR/EC) 20 mg PO DAILY Referrals / Follow Up: Jameson Carrillo MD [Med Staff - Consulting] - Within 1 Month (For DURAN) Fabián Azar MD [Med Staff - Active Staff] - Within 1 Week Christopher Huang DO [Med Staff - Active Staff] - Within 1 Month Rupal Boyer NP-C [Primary Care Provider] - Within 2 Weeks Disposition Disposition (needs filled in before D/C Order can be placed): Home Health Service Charges/Coding Visit Charges Inpatient E&M: 66809 Disch Hosp >30min
--- NOTE | 2023-09-20 13:47 | PN.RENAL_ITS ---
Subjective Subjective Resting in bed. No overnight events. Objective Data Objective Data Vital Signs: Vital Signs Temp Pulse Resp BP Pulse Ox O2 Del Method O2 Flow Rate 97.7 F L 93 18 108/58 L 96 Room Air 2 09/20/23 09:09 09/20/23 09:09 09/20/23 09:09 09/20/23 09:09 09/20/23 09:53 09/20/23 09:53 09/19/23 08:41 FiO2 30 09/18/23 03:09 Oxygen Flow Rate (L/min) 2 Oxygen Delivery Method Room Air Weight: 66.9 kg Body Mass Index (BMI) 24.5 Intake & Output: Intake and Output for Last 24 Hours 09/18/23 09/19/23 09/20/23 23:59 23:59 23:59 Intake Total 2310.83 / 2310.83 720 / 840 350 / 350 Output Total 900 / 900 150 / 150 500 / 500 Balance 1410.83 / 1410.83 570 / 690 -150 / -150 Medical Nutrition Assessment Dietitian: Malnutrition Criteria Met Start: 09/17/23 15:25 Freq: Status: Active Protocol: Document 09/17/23 15:25 SB (Rec: 09/17/23 15:25 SB [id number]) Nutrition Malnutrition Evidence of Malnutrition Exists Yes Malnutrition (severe): Chronic Evidenced By Suboptimal Energy Intake ( Severe),Weight Loss (Severe) Clinical Problem Chronic Disease or Condition Related Malnutrition Etiology severe chronic related to multiple hospitalities in 1 year resulting in inadequate energy intake Signs/Symptoms as evidenced by pt meeting <50 % of estimated nutritional needs and 10.8% unintentional weight loss x 5 months. Status Active Problem Recommendation Dietitian Recommendations/Changes Recommend transitional diet, once diet is advance, with goal of liberal regular diet d /t signs and symptoms of malnutrition. Will add 120ml mixed navarrete ensure clear 4 times with medpass. Reviewed and approved by Katie Webber RD, IDALIA. Lab / Micro Data 09/20/23 06:24 09/20/23 06:24 Labs: Laboratory Results - last 24 hr 09/19/23 16:29: POC Glucose 157 H 09/20/23 06:24: WBC 9.5, RBC 3.55 L, Hgb 10.7 L, Hct 32.9 L, MCV 92.7, MCH 30.1, MCHC 32.5, RDW Std Deviation 41.7, RDW Coeff of Gerhard 12.2, Plt Count 201, MPV 9.9, Immature Gran % (Auto) 0.400, Neut % (Auto) 64.6, Lymph % (Auto) 26.0, [place] % (Auto) 7.1, Eos % (Auto) 1.8, Baso % (Auto) 0.1, Absolute Neuts (auto) 6.1, Absolute Lymphs (auto) 2.47, Nucleated RBC % 0, Sodium 141, Potassium 3.6, C hloride 111 H, Carbon Dioxide 23.0, Anion Gap 7, BUN 42 H, Creatinine 1.04 H, Estim Creat Clear Calc 45.94, Est GFR (MDRD) Af Amer 67, Est GFR (MDRD) Non-Af 56 L, BUN/Creatinine Ratio 40.4 H, Glucose 139 H, Calcium 9.0 09/20/23 06:43: POC Glucose 115 H 09/20/23 11:19: POC Glucose 131 H Rhythm Strip Rhythm Strip: Sinus Rhythm Rate: 80 Ectopy: PVC(s) Physical Exam Narrative Alert and oriented x3, no apparent distress S1 S2, RRR LS CTA abdomen soft, + BS no edema Assessment & Plan Assessment/Plan (1) DURAN (acute kidney injury): PLAN: 67 year old with will preserved kidney function, but presence of chronic proteinuria most likely due to early diabetic nephropathy who presented with the symptoms of GI virus, creatinine was elevated above baseline at 1.29. Initial DURAN insult was dehydration and reduced renal perfusion. Patient underwent cardiac catheterization and has been exposed to IV contrast and has developed contrast-induced nephropathy. Serum creatinine peaked 1.48 on 09/18 and today creatinine improved to 1.04 mg/dL. Electrolytes and acid-base normal. Patient is nonoliguric. Volume status appears near euvolemic. Since renal function is improving, no further workup per nephrology. Okay for discharge when cleared by primary team. Discussed importance of avoiding NSAIDs. Discussed with patient follow-up in [place] office, patient states limited provider appointments due to mobility issues. I asked her if unable to follow-up with us to make sure she sees PCP.
[2023-09-20 14:39] VITALS: BP 102/67; PULSE 77; RESP 18; TEMP 36.5; O2SAT 96
--- NOTE | 2023-09-20 15:42 | PHA.DC_ITS ---
Pharmacy [place] Med Reconciliation Pharmacy Service has performed discharge medication reconciliation for this patient. Medication education papers prepared, patient discharged before I was able to dependency counselor. Medications reviewed. The patient's discharge medication list was reviewed for discrepancies and discrepancies were resolved. Medications at Discharge Home Medications alendronate 70 mg tablet 70 mg PO SA osteoporosis 01/06/18 buspirone 7.5 mg tablet 15 mg PO BID anxiety 01/06/18 fluoxetine 40 mg capsule 40 mg PO BID anxiety 01/06/18 glipizide 5 mg tablet 10 mg PO DAILY antidiabetic 01/06/18 ergocalciferol (vitamin D2) 1,250 mcg (50,000 unit) capsule 50,000 unit PO .COMPLEX supplement 02/12/19 lisinopril 20 mg tablet 20 mg PO DAILY #30 tabs 02/15/19 cephalexin 500 mg capsule 500 mg PO TID 7 days #21 caps 04/14/23 gabapentin 100 mg capsule 100 mg PO Q8H pain 04/14/23 meloxicam 7.5 mg tablet 7.5 mg PO DAILY pain 04/14/23 ondansetron 4 mg disintegrating tablet 4 mg PO TID PRN nausea and vomiting #21 tabs 04/14/23 oxybutynin chloride 10 mg tablet,extended release 24 hr 20 mg PO DAILY bladder 04/14/23 oxycodone 5 mg tablet 5 mg PO .COMPLEX pain 04/14/23 simvastatin 40 mg tablet 40 mg PO DAILY cholesterol 04/14/23 turmeric 1 cap PO DAILY supplement 04/14/23 aspirin 81 mg tablet,delayed release 81 mg PO BREAKFAST 30 days #30 tabs 09/20/23 carvedilol 3.125 mg tablet 6.25 mg (2 x 3.125 mg) PO BID #90 tabs 09/20/23 pantoprazole 40 mg tablet,delayed release (Protonix) 40 mg PO BID #60 tabs 09/20/23
== END 2023-09-20 15:00 | disposition home health service (06) | DRG 280 ==
LOC: ED 09-17 00:39 → PCU 09-17 00:49
PROVIDERS: Emergency Provider Emergency Medicine; PCP Nurse Practitioner Family; Visit Provider Internal Medicine
DX: I21.4 Non-ST elevation (NSTEMI) myocardial infarction (principal); E43 Unspecified severe protein-calorie malnutrition; G93.41 Metabolic encephalopathy; I13.0 Hypertensive heart and chronic kidney disease with heart failure and stage 1 through stage 4 chronic kidney disease, or unspecified chronic kidney disease; N17.9 Acute kidney failure, unspecified; I50.20 Unspecified systolic (congestive) heart failure; E87.20 Acidosis, unspecified; E86.0 Dehydration; F31.9 Bipolar disorder, unspecified; E11.22 Type 2 diabetes mellitus with diabetic chronic kidney disease; N18.31 Chronic kidney disease, stage 3a; F03.90 Unspecified dementia, unspecified severity, without behavioral disturbance, psychotic disturbance, mood disturbance, and anxiety; I25.110 Atherosclerotic heart disease of native coronary artery with unstable angina pectoris; K21.00 Gastro-esophageal reflux disease with esophagitis, without bleeding; I44.7 Left bundle-branch block, unspecified; E78.5 Hyperlipidemia, unspecified; K52.9 Noninfective gastroenteritis and colitis, unspecified; Z87.891 Personal history of nicotine dependence; Z79.84 Long term (current) use of oral 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 drugs; Z79.891 Long term (current) use of opiate analgesic; R80.9 Proteinuria, unspecified; Z68.24 Body mass index [BMI] 24.0-24.9, adult; N14.11 Contrast-induced nephropathy; T50.8X5A Adverse effect of diagnostic agents, initial encounter; Y92.239 Unspecified place in hospital as the place of occurrence of the external cause
CPT/HCPCS: 36415; 70450; 71045; 80048; 80053; 80061; 81001; 82962; 83036; 83605; 83735; 84484; 85025; 85610; 85730; 93005; 93306; 93458; 94640; 94762; 97162; 97166; 97530; 97535; 97803; 99152; 99285; J7030; Q9957; Q9967; A4216; C1769; C1894; C8929; J1940; J2405

== ENCOUNTER → 2023-10-11 | Outpatient (CLI) | payer MEDICARE, MEDICAID, SELFPAY ==
[2023-10-11 16:12] LABS: Absolute Lymphocyte Count 2.45 X10^3/uL (0.83-4.51); Absolute Neutrophil Count 6.4 X10^3/uL (2.0-7.7); Basophil# 0.03 X10^3/uL; Basophil% 0.3 % (0-1); Eosinophil# 0.29 X10^3/uL; Hematocrit 41.4 % (37-47); Hemoglobin 12.7 g/dL (12.0-15.0); Lymphocyte # 2.45 X10^3/ul (0.83-4.51); Lymphocyte % 25.4 % (19-41); Mean Corp Hgb Conc 30.7 g/dL (32-36); Mean Corpuscular Hgb 29.3 pg (27.0-32.0); Mean Corpuscular Volume 95.4 fL (81-99); Mean Platelet Vol. 9.6 fl (6.2-12.0); Monocyte# 0.44 X10^3/uL; Monocyte% 4.6 % (0-10); NRBC Flagged by Analyzer 0 % (0-5); Neutrophil # 6.41 X10^3/uL (2.7-7.7); Neutrophil % 66.4 % (47-70); Platelet Count 303 K/mm3 (150-450); RBC Distribution Width CV 12.7 % (11.6-14.6); RBC Distribution Width SD 44.6 fl (35.1-43.9); Red Blood Count 4.34 M/mm3 (4.2-5.4); White Blood Count 9.7 K/mm3 (4.4-11.0)
[2023-10-11 16:16] LABS: Erythrocyte Sedimentation Rate 23 mm/hr (0-30)
[2023-10-11 16:51] LABS: AST(SGOT) 16 U/L (15-37); Alanine Aminotransfer ALT/SGPT 14 U/L (13-56); Alkaline Phosphatase 93 U/L (45-117); Anion Gap 6 (5-15); BUN 34 mg/dL (7-18); BUN/Creat Ratio 32.7 RATIO (10-20); CRP < 2.90 mg/L (0.0-3.0); Calcium,Total 10.1 mg/dL (8.5-10.1); Chloride 108 mmol/L (98-107); Cholesterol 204 mg/dL (200); Creatinine, Serum 1.04 mg/dL (0.55-1.02); EST Glomerular Filtration Rate 56 mL/min (>60); Est Glom Filt Rate - Afr Amer 67 mL/min (>60); Globulin 4.2 g/dL (2.2-4.2); Glucose 67 mg/dL (74-106); High Density Lipoprotein 74 mg/dL; Lipase 31 U/L (13-75); Potassium 4.8 mmol/L (3.5-5.1); Protein, Total 8.2 g/dL (6.4-8.2); Sodium Level 139 mmol/L (136-145); Triglycerides 176 mg/dL; Very Low Density Lipoprotein 35 mg/dL (5-40)
[2023-10-13 15:08] LABS: Anti-Centromere B Ab <0.2 AI (0.0-0.9); Anti-Chromatin <0.2 AI (0.0-0.9); Anti-Jo <0.2 AI (0.0-0.9); Anti-Scleroderma-70 AB <0.2 AI (0.0-0.9); Anti-dsDNA Ab 2 IU/mL (0-9); RNP Ab <0.2 AI (0.0-0.9); SJOGREN'S Anti-SS-A test < 0.2 AI (0.0-0.9); SJOGREN'S Anti-SS-B test < 0.2 AI (0.0-0.9); Smith Ab <0.2 AI (0.0-0.9)
[2023-10-16 18:08] LABS: Cytoplasmic Ab (C-ANCA) <1:20 titer (Neg:<1:20); IgG, Quant 1117 mg/dL (586-1602); Immunoglobulin G, Subclass 1 548 mg/dL (248-810); Immunoglobulin G, Subclass 2 464 mg/dL (130-555); Immunoglobulin G, Subclass 3 32 mg/dL (15-102); Immunoglobulin G, Subclass 4 69 mg/dL (2-96); Perinuclear Ab (P-ANCA) <1:20 titer (Neg:<1:20)
== END | disposition home or self-care (01) ==
LOC: LAB 15:21
PROVIDERS: PCP Nurse Practitioner Family; Referring Provider Student in an Organized Health Care Education/Training Program; Visit Provider Nurse Practitioner Family
DX: N28.9 Disorder of kidney and ureter, unspecified (principal); K85.00 Idiopathic acute pancreatitis without necrosis or infection; K85.90 Acute pancreatitis without necrosis or infection, unspecified; K62.89 Other specified diseases of anus and rectum
CPT/HCPCS: 36415; 80053; 80061; 82784; 82787; 83690; 85025; 85652; 86140; 86225; 86235; 86256

== ENCOUNTER 2023-12-30 18:08 | Inpatient (IN) | payer MEDICARE, MEDICAID, SELFPAY ==
[2023-12-30] VITALS (11 sets, daily range): BP systolic 86–134; BP diastolic 70–97; PULSE 113–137; RESP 12–32; TEMP 35.6–38.3; O2SAT 80–99; BMI 25.8; BMI 16.9
--- NOTE | 2023-12-30 18:52 | EKG12_ITS ---
Test Reason : DYSRHYTHMIA Blood Pressure : */* mmHG Vent. Rate : 115 BPM Atrial Rate : 115 BPM P-R Int : 172 ms QRS Dur : 120 ms QT Int : 338 ms P-R-T Axes : 64 -34 95 degrees QTcB Int : 467 ms Sinus tachycardia Left axis deviation Non-specific intra-ventricular conduction delay Minimal voltage criteria for LVH, may be normal variant ( Clyde product ) Nonspecific T wave abnormality Abnormal ECG Confirmed by TERRI WRIGHT, KATARINA ([id number]), continuity editor CAIT VIDES ([id number]) on 12/31/2023 9:55:40 AM Referred By: Confirmed By: KATARINA MURRAY MD
--- NOTE | 2023-12-30 18:52 | CT_ITS ---
[INDICATION: epigastric pain COMPARISON: 12/23/2022 chest, abdomen, pelvis CT. A radiation dose optimization technique was used for this scan. RADIATION DOSAGE (If Supplied By Facility): CTDIvol/DLP = ( 17.27 ) / ( 1080.78 ) mGy/mGycm FINDINGS: Contrast enhanced serial CT axial images through the chest, abdomen, and pelvis with coronal and sagittal reformatted series. IV Contrast dosage and agent: 75mL [id number]-370 IV. MEDIASTINUM: No obvious large proximal pulmonary artery filling defects. Mediastinum is otherwise unremarkable. AORTA/GREAT VESSELS: No acute thoracoabdominal aortic abnormality. 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 Remaining abdominal ostia are patent. LUNG PARENCHYMA/PLEURA: Diffuse interlobular septal thickening consistent with pulmonary edema. Trace bilateral pleural effusions with adjacent atelectasis. Subtle focal hazy perihilar central right upper lobe groundglass airspace disease. No pneumothorax. New posterior left apical 13 mm nodule. BONES: Unremarkable. Again are noted numerous thoracolumbar vertebral body compression deformities, which are unchanged from 12 months prior. Multiple old bilateral anterolateral rib fracture deformities as well as old pubic rami fractures. Left total hip arthroplasty as well as right femur intramedullary jules with hip tension screws, incompletely imaged, although no obvious hardware complication. URINARY COLLECTING SYSTEM/ KIDNEYS: Significant streak artifact secondary to bilateral pelvic metallic hardware, however, no evidence of urinary collecting system obstruction. Simple fluid attenuating exophytic bilateral large renal lesions, likely renal cysts. Lopez catheter balloon tip within nondistended urinary bladder. PANCREAS: No peripancreatic fat stranding. BOWEL/MESENTERY: No dilated bowel loops. No significant free fluid. No free air. GALLBLADDER: No pericholecystic fat stranding. LIVER/STOMACH: No obvious abnormality. SPLEEN: 2 cm hypoattenuating left anterior splenic lesion increased in size from previous year 1.2 cm. APPENDIX: Normal caliber appendix. CT/CTA Chst, Abd, Pel W and/or WO IMPRESSION: Diffuse interlobular septal thickening consistent with pulmonary edema. Subtle focal hazy perihilar central right upper lobe groundglass airspace disease, likely associated pulmonary edema although other infectious etiology or even neoplastic process is not excluded. Trace bilateral pleural effusions with adjacent atelectasis. Recommend follow-up to resolution. Distal pulmonary artery branch vessel evaluation is suboptimal secondary to timing of contrast bolus as well as respiratory motion, however, there is no obvious large proximal pulmonary embolus. 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 2 cm hypoattenuating left anterior splenic lesion increased in size from previous year 1.2 cm. Recommend follow-up evaluation as neoplastic process is not excluded. New posterior left apical 13 mm nodule. Recommend comparison with previous imaging to document long-term stability versus follow-up evaluation as per Fleischner guidelines as neoplastic process is not excluded. No acute abdominal abnormality is identified. Electronically Signed: Mikal Gold MD at 21:59 EST ,
[2023-12-30] MEDS: Ondansetron 4 MG/2 ML Vial IV ×2 (19:03→22:03)
[2023-12-30 19:17] LABS: Absolute Lymphocyte Count 1.17 X10^3/uL (0.83-4.51); Absolute Neutrophil Count 17.3 X10^3/uL (2.0-7.7); Basophil# 0.03 X10^3/uL; Basophil% 0.2 % (0-1); Hematocrit 45.1 % (37-47); Hemoglobin 14.8 g/dL (12.0-15.0); Lymphocyte # 1.17 X10^3/ul (0.83-4.51); Mean Corp Hgb Conc 32.8 g/dL (32-36); Mean Corpuscular Hgb 29.6 pg (27.0-32.0); Mean Corpuscular Volume 90.2 fL (81-99); Monocyte# 0.71 X10^3/uL; Monocyte% 3.7 % (0-10); NRBC Flagged by Analyzer 0 % (0-5); Neutrophil # 17.34 X10^3/uL (2.7-7.7); Neutrophil % 89.5 % (47-70); Platelet Count 412 K/mm3 (150-450); RBC Distribution Width CV 12.9 % (11.6-14.6); RBC Distribution Width SD 41.9 fl (35.1-43.9); White Blood Count 19.4 K/mm3 (4.4-11.0)
[2023-12-30 19:26] LABS: International Normalized Ratio 1.1; Prothrombin Time (Protime)PT. 14.4 SECONDS (11.7-14.9)
[2023-12-30 19:27] LABS: Partial Thromboplast Time 26.1 Seconds (24.1-36.2)
[2023-12-30] MEDS: Pantoprazole Sodium 40 MG in 0.9% Normal Saline (100mL MB+) 100 ML 330 MG IV (20:04)
[2023-12-30] MEDS: Metoclopramide 10 MG/2 ML Vial 5 MG IV (20:05)
--- NOTE | 2023-12-30 20:09 | ED.RN ---
called lab to inquire about results for pt to be able to get CT scan
[2023-12-30 20:25] LABS: Lactic Acid 3.2 mmol/L (0.4-1.9)
[2023-12-30 20:25] LABS: AST(SGOT) 36 U/L (15-37); Alanine Aminotransfer ALT/SGPT 38 U/L (13-56); Albumin, Serum 4.1 g/dL (3.2-5.0); Alkaline Phosphatase 93 U/L (45-117); Anion Gap 14 (5-15); BUN 41 mg/dL (7-18); BUN/Creat Ratio 20.9 RATIO (10-20); Calcium,Total 9.6 mg/dL (8.5-10.1); Chloride 105 mmol/L (98-107); Creatinine, Serum 1.96 mg/dL (0.55-1.02); EST Glomerular Filtration Rate 27 mL/min (>60); Est Glom Filt Rate - Afr Amer 32 mL/min (>60); Estimated Creatinine Clearance 25.36 ml/min; Globulin 4.1 g/dL (2.2-4.2); Glucose 405 mg/dL (74-106); Lipase 20 U/L (13-75); Potassium 3.8 mmol/L (3.5-5.1); Protein, Total 8.2 g/dL (6.4-8.2); Sodium Level 140 mmol/L (136-145); Troponin-I HS 2872 pg/mL (3.0-54.0)
[2023-12-30] MEDS: 0.9% Normal Saline (1000mL) 1,000 ML 999 ML IV ×2 (20:38)
[2023-12-30 21:12] LABS: Mucous, Urine 0 SEEN /hpf (<or=2+)
[2023-12-30 21:21] LABS: Color, Urine Yellow (Yellow); Glucose, Dipstick 50 mg/dl (Normal); Ketone-Dipstick Negative (Negative); Leukocyte Esterase-Dipstick 500 /ul (Negative); Nitrite-Dipstick Negative (Negative); Occult Blood-Urine 25 /ul (Negative); Protein-Dipstick 100 mg/dl (Negative); Specific Gravity, Urine 1.025 (1.002-1.030); Urine Clarity Turbid (Clear); Urine Urobilinogen Normal (Normal)
[2023-12-30 21:22] LABS: Urine Bilirubin Dipstick 1 mg/dL (Negative)
--- NOTE | 2023-12-30 21:31 | ED.RN ---
called MD to room. pt with SOB, crackles throughout after 1 L of the 2 L ordered. moved to trauma room. called resp therapy to place on bipap. MD at bedside explaining POC to pt and family
[2023-12-30 21:32] LABS: Bacteria 4+ /hpf (None Seen); Hyaline Cast 0-5 SEEN /lpf (0-5)
[2023-12-30 21:33] LABS: White Blood Cells 50-100 SEEN /hpf (0-5)
[2023-12-30 21:36] LABS: Renal Epithelial Cells 0-5 SEEN /hpf (0-5); Squamous Epithelial Cells - UA 0-5 SEEN /hpf (5-10)
[2023-12-30 21:37] LABS: Red Blood Cells-Urine 5-10 SEEN /hpf (0-5)
[2023-12-30] MEDS: LORazepam 2 MG/ML Syringe 0.5 MG IV (21:51)
[2023-12-30] MEDS: Ceftriaxone 2 GM in 0.9% Normal Saline (50mL MB+) 50 ML IV (21:52)
--- NOTE | 2023-12-30 22:06 | EDS_ITS ---
HPI History of Present Illness Chief Complaint: Nausea/Vomiting/Diarrhea Narrative Narrative: Patient is a 68-year-old female with a past medical history of hypercholesteremia, anxiety, depression, BURKE, atrial fibrillation not on anticoagulation, type 2 diabetes, hyperlipidemia, hypertension who presented to the emergency department with a chief complaint of nausea vomiting and diarrhea. Patient states on Sunday she ate pizza and then on Sunday she woke up with nausea vomit diarrhea. Patient states that she has had black stools since then as well. Patient states that she is feeling worse which prompted her to come here for further evaluation management. Patient denies any iron supplementation denies any Pepto-Bismol use. [facility] Medical History Non-ST elevation AR (NSTEMI) Hiatal hernia Irritable bowel Back pain due to injury Restless legs Injury of head and neck High cholesterol Hearing loss, right Bipolar disorder Depression Anxiety GERD (gastroesophageal reflux disease) Former smoker Sleep apnea Atrial fibrillation Migraines Dementia Closed intertrochanteric fracture of left hip Psoriatic arthritis Nonobstructive atherosclerosis of coronary artery Obesity Type 2 diabetes mellitus Takotsubo syndrome Hyperlipidemia Essential (primary) hypertension NSTEMI (non-ST elevated myocardial infarction) (01/06/18) Home Medications ?Medication ?Instructions ?Recorded ?Last Taken ?Type alendronate 70 mg tablet 70 mg PO SA osteoporosis 01/06/18 Unknown History buspirone 7.5 mg tablet 15 mg PO BID anxiety 01/06/18 Unknown History fluoxetine 40 mg capsule 40 mg PO BID anxiety 01/06/18 Unknown History glipizide 5 mg tablet 10 mg PO DAILY antidiabetic 01/06/18 Unknown History ergocalciferol (vitamin D2) 1,250 50,000 unit PO .COMPLEX supplement 02/12/19 Unknown History mcg (50,000 unit) capsule lisinopril 20 mg tablet 20 mg PO DAILY #30 tabs 02/15/19 Unknown Rx gabapentin 100 mg capsule 100 mg PO Q8H pain 04/14/23 Unknown History meloxicam 7.5 mg tablet 7.5 mg PO DAILY pain 04/14/23 Unknown History ondansetron 4 mg disintegrating 4 mg PO TID PRN nausea and 04/14/23 Unknown Rx tablet vomiting #21 tabs oxybutynin chloride 10 mg 20 mg PO DAILY bladder 04/14/23 Unknown History tablet,extended release 24 hr simvastatin 40 mg tablet 40 mg PO DAILY cholesterol 04/14/23 Unknown History turmeric 1 cap PO DAILY supplement 04/14/23 Unknown History aspirin 81 mg tablet,delayed 81 mg PO BREAKFAST 30 days #30 tabs 09/20/23 Unknown Rx release pantoprazole 40 mg tablet,delayed 40 mg PO BID #60 tabs 09/20/23 Unknown Rx release (Protonix) carvedilol 6.25 mg tablet 6.25 mg PO BID Awaiting mail in 10/18/23 Unknown Rx RX, pt is out of med #60 tabs methocarbamol 500 mg tablet 1,000 mg PO BID 12/30/23 Unknown History Allergy/AdvReac Type Severity Reaction Status Date / Time morphine Allergy Mild confusion Verified 12/30/23 18:09 codeine Allergy Itching Verified 12/30/23 18:09 fentanyl AdvReac confusion Verified 12/30/23 18:09 naproxen AdvReac Other Verified 12/30/23 18:09 Family History Mother Cancer skin Father Cancer prostate Surgical History History of back surgery History of carpal tunnel release of both wrists History of hysterectomy History of left heart catheterization (01/07/18) Social History Smoking Status: Former smoker how long ago did patient quit smokin years ago alcohol intake: never substance use type: does not use caffeine: Yes Type: carbonated beverages Number of servings: 1 ROS ROS ED ROS Narrative Constitutional: Complains of chills denies any headaches, lightness, dizziness, fevers Eyes: Denies change in vision double vision blurry vision Cardiovascular: Denies chest pain or palpitations Respiratory: Denies coughing wheezing shortness of breath Abdomen: Complains of abdominal pain dark tarry stools as noted above as well as nausea vomiting : Denies any urinary symptoms Neurological: Denies any numbness, weakness, tingling Musculoskeletal: Denies back pain Skin: Denies any rashes or lesions EXAM Physical Exam Narrative Exam Narrative: General: Patient was lying in bed did appear to be uncomfortable not feeling well Head: Atraumatic, normocephalic Eyes: PERRL bilateral, EOMI bilateral, no conjunctival injection noted Neck: Soft, supple, trachea midline Cardiovascular: Patient is tachycardic with a regular rhythm no murmurs gallops rubs noted Respiratory: Clear to auscultation bilaterally Abdomen: Soft, nondistended, diffuse tenderness palpation no rebound or guarding on exam, bowel sounds present arms for Extremities: +4/5 strength noted in the bilateral upper and lower extremities, no pedal edema on exam Neurological: Patient is following commands knew that she was at [facility] years 2023 Skin: Warm, dry, intact Const Vital Signs: 12/30/23 18:10 12/30/23 20:28 12/30/23 20:28 Temperature 96.1 F L Temperature Source Temporal Pulse Rate 127 H 114 H Respiratory Rate 16 20 H Respiratory Pattern Blood Pressure 133/83 H 105/90 H Blood Pressure Mean 99 95 Pulse Ox 98 80 95 Oxygen Delivery Method Room Air Room Air Nasal Cannula Oxygen Flow Rate (L/min) 6 Fraction of Inspired Oxygen (FIO2) 12/30/23 20:39 12/30/23 21:16 12/30/23 21:30 Temperature 97.6 F L 101 F H Temperature Source Temporal Core Pulse Rate 116 H 127 H 137 H Respiratory Rate 32 H 24 H 28 H Respiratory Pattern Blood Pressure 111/83 H 86/70 L 134/81 H Blood Pressure Mean 92 75 98 Pulse Ox 98 89 89 Oxygen Delivery Method Nasal Cannula Nasal Cannula Nasal Cannula Oxygen Flow Rate (L/min) 4 6 6 Fraction of Inspired Oxygen (FIO2) 12/30/23 21:35 12/30/23 21:38 12/30/23 22:24 Temperature 100.1 F H Temperature Source Pulse Rate 126 H 116 H Respiratory Rate 24 H 22 H Respiratory Pattern Tachypnea Blood Pressure 103/79 Blood Pressure Mean 87 Pulse Ox 99 93 Oxygen Delivery Method Bi-pap Oxygen Flow Rate (L/min) Fraction of Inspired Oxygen (FIO2) 30 30 12/30/23 22:24 Temperature 100.1 F H Temperature Source Core Pulse Rate 117 H Respiratory Rate 21 H Respiratory Pattern Blood Pressure 103/97 H Blood Pressure Mean 99 Pulse Ox 92 Oxygen Delivery Method Bi-pap Oxygen Flow Rate (L/min) Fraction of Inspired Oxygen (FIO2) 30 MDM MDM MDM Narrative Medical decision making narrative: Patient is a 68-year-old female who presented to the emergency department with chief complaint of nausea vomiting, dark tarry stools and not feeling well. Patient will have workup performed here on the differential diagnose includes Melamin to upper GI bleed, pneumonia, ACS, UTI, pyelonephritis. Once workup is obtained reviewed she will be reevaluated. Patient CBC reviewed and was significant for leukocytosis of 19,000, hemoglobin stable at 14.8, platelet count normal at 412. Patient's INR normal at 1.1, PT of 14.4. Patient sodium normal at 140, potassium normal at 3.8, creatinine was elevated to 1.96 indicating acute kidney injury was likely prerenal, glucose was noted to be 405 her anion gap was normal at 14. Patient lactic acid was elevated 3.2, AST and ALT were 36 and 38 respectively. Patient's troponin was 2872, EKG was reviewed and independently interpreted by myself which showed sinus tachycardia with a rate of [address] changes noted likely rate dependent. I called and discussed case with Dr. Jimenez who reviewed the EKG and states that no anticoagulation indicated at this point time likely secondary to type II AR. Delta troponin is pending. Patient's lipase was noted to be 20. Patient's urinalysis was reviewed was significant for 500 leukocyte esterase 50-100 white cells with 4+ bacteria she was given a 2 g of Rocephin for her urinary tract infection at 2140. Patient's CTA chest abdomen pelvis with IV contrast was reviewed and showed diffuse interlobular septal thickening consistent with pulmonary edema. Subtle focal hazy perihilar central right upper lobe groundglass airspace disease likely associated pulmonary edema although other infectious etiology or even neoplastic process is not excluded. Trace bilateral pleural effusions with adjacent atelectasis recommend follow-up till resolution. Patient did become hypoxic and had rales noted on exam was satting at 84% on 6 L nasal cannula therefore she was transitioned to BiPAP. Distal pulmonary artery or branch vessel evaluation is suboptimal secondary to timing of contrast bolus as well as respiratory motion however there is no obvious large pulmonary embolism. 2 cm hypotension left anterior splenic lesion increase in size from previous year 1.2 cm recommend follow-up evaluation as neoplastic process not excluded. New posterior left apical 13 mm nodule. Recommending comparison with previous imaging to document along service stability versus follow-up evaluation as per guidelines. No other acute abnormalities identified. Patient was given 40 mg of IV Protonix as her stool was positive for occult blood. I did add on azithromycin as I cannot fully rule out infectious etiology in the chest at 2206. Patient did become febrile therefore she was given a gram of Tylenol as well. At this point time do believe the patient will warrant admission therefore patient case will be discussed with hospitalist. I did review the patient's echocardiogram from 09/17/2023 which showed ejection fraction 20%. Discussed case with hospitalist Dr. Aguilar who accept the patient for admission. Patient will be admitted to the ICU for further evaluation management. Patient was notified with all question concerns answered bedside. Critical care time 40 minutes. Lab Data Labs: Laboratory Results - last 24 hr 12/30/23 12/30/23 12/30/23 18:40 19:00 19:02 WBC 19.4 H RBC 5.00 Hgb 14.8 Hct 45.1 MCV 90.2 MCH 29.6 MCHC 32.8 RDW Std Deviation 41.9 RDW Coeff of Gerhard 12.9 Plt Count 412 MPV 10.0 Immature Gran % (Auto) 0.600 Neut % (Auto) 89.5 H Lymph % (Auto) 6.0 L Tyrrell % (Auto) 3.7 Eos % (Auto) 0.0 Baso % (Auto) 0.2 Absolute Neuts (auto) 17.3 H Absolute Lymphs (auto) 1.17 Nucleated RBC % 0 PT 14.4 INR 1.1 APTT 26.1 Sodium 140 Potassium 3.8 Chloride 105 Carbon Dioxide 21.0 Anion Gap 14 BUN 41 H Creatinine 1.96 H Estim Creat Clear Calc 25.36 Est GFR (MDRD) Af Amer 32 L Est GFR (MDRD) Non-Af 27 L BUN/Creatinine Ratio 20.9 H Glucose 405 H Lactic Acid 3.2 H* Calcium 9.6 Total Bilirubin 0.70 AST 36 ALT 38 Alkaline Phosphatase 93 Troponin I High Sens 2872 H* B-Natriuretic Peptide 3619.4 H Total Protein 8.2 Albumin 4.1 Globulin 4.1 Albumin/Globulin Ratio 1.0 Lipase 20 Urine Color Urine Clarity Urine pH Ur Specific Elmer Urine Protein Urine Glucose (UA) Urine Ketones Urine Occult Blood Urine Nitrite Urine Bilirubin Urine Urobilinogen Ur Leukocyte Esterase Urine RBC Urine WBC Ur Squamous Epith Cells Ur Renal Epithelial Cell Urine Bacteria Hyaline Casts Urine Mucus Blood Type O POSITIVE Antibody Screen NEGATIVE 12/30/23 12/30/23 21:10 21:20 WBC RBC Hgb Hct MCV MCH MCHC RDW Std Deviation RDW Coeff of Gerhard Plt Count MPV Immature Gran % (Auto) Neut % (Auto) Lymph % (Auto) Tyrrell % (Auto) Eos % (Auto) Baso % (Auto) Absolute Neuts (auto) Absolute Lymphs (auto) Nucleated RBC % PT INR APTT Sodium Potassium Chloride Carbon Dioxide Anion Gap BUN Creatinine Estim Creat Clear Calc Est GFR (MDRD) Af Amer Est GFR (MDRD) Non-Af BUN/Creatinine Ratio Glucose Lactic Acid Calcium Total Bilirubin AST ALT Alkaline Phosphatase Troponin I High Sens 2585 H* B-Natriuretic Peptide Total Protein Albumin Globulin Albumin/Globulin Ratio Lipase Urine Color Yellow Urine Clarity Turbid Urine pH 5.0 Ur Specific Elmer 1.025 Urine Protein 100 H Urine Glucose (UA) 50 H Urine Ketones Negative Urine Occult Blood 25 H Urine Nitrite Negative Urine Bilirubin 1 H Urine Urobilinogen Normal Ur Leukocyte Esterase 500 H Urine RBC 5-10 SEEN Urine WBC 50-100 SEEN Ur Squamous Epith Cells 0-5 SEEN Ur Renal Epithelial Cell 0-5 SEEN Urine Bacteria 4+ Hyaline Casts 0-5 SEEN Urine Mucus 0 SEEN Blood Type Antibody Screen Radiography Diagnostic Testing: Clinical Impression(s) from Imaging Studies Chest/Abdomen/Pelvis CTA 12/30/23 18:52 IMPRESSION: Diffuse interlobular septal thickening consistent with pulmonary edema. Subtle focal hazy perihilar central right upper lobe groundglass airspace disease, likely associated pulmonary edema although other infectious etiology or even neoplastic process is not excluded. Trace bilateral pleural effusions with adjacent atelectasis. Recommend follow-up to resolution. Distal pulmonary artery branch vessel evaluation is suboptimal secondary to timing of contrast bolus as well as respiratory motion, however, there is no obvious large proximal pulmonary embolus. 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 2 cm hypoattenuating left anterior splenic lesion increased in size from previous year 1.2 cm. Recommend follow-up evaluation as neoplastic process is not excluded. New posterior left apical 13 mm nodule. Recommend comparison with previous imaging to document long-term stability versus follow-up evaluation as per Fleischner guidelines as neoplastic process is not excluded. No acute abdominal abnormality is identified. Electronically Signed: Mikal Gold MD at 21:59 EST , Discharge Plan Triage Chief Complaint: Nausea/Vomiting/Diarrhea ED Provider: Yifan Zepeda Dx/Rx/DC Orders Clinical Impression: Urinary tract infection, Hypoxia, Acute kidney injury, Acidosis, lactic, CHF exacerbation, Myocardial infarction type 2 Prescriptions: No Action fluoxetine 40 MG capsule 40 mg PO BID alendronate 70 MG tablet 70 mg PO SA Rx Instructions: unknown buspirone 7.5 MG tablet 15 mg PO BID glipizide 5 MG tablet 10 mg PO DAILY ergocalciferol (vitamin D2) 50,000 UNIT capsule 50,000 unit PO .COMPLEX Patient Comments: Unsure day patient takes Rx Instructions: 50,000 units orally Q 2 Weeks; 50,000 units orally; lisinopril 20 MG tablet 20 mg PO DAILY Qty: 30 0RF ondansetron 4 mg tablet,disintegrating 4 mg PO TID PRN (Reason: nausea and vomiting) Qty: 21 0RF simvastatin 40 mg tablet 40 mg PO DAILY meloxicam 7.5 mg tablet 7.5 mg PO DAILY oxybutynin chloride 10 mg tablet extended release 24hr 20 mg PO DAILY gabapentin 100 mg capsule 100 mg PO Q8H turmeric 1,000 mg capsule 1 cap PO DAILY aspirin 81 mg Tablet,Delayed Release (Dr/Ec) 81 mg PO BREAKFAST 30 Days Qty: 30 3RF pantoprazole [Protonix] 40 mg tablet,delayed release (DR/EC) 40 mg PO BID Qty: 60 1RF methocarbamol 500 mg tablet 1,000 mg PO BID carvedilol 6.25 mg tablet 6.25 mg PO BID Qty: 60 0RF Rx Instructions: must administer with a meal/food Primary Care Provider: Rupal Boyer Referrals: Rupal Boyer, CRISTOPHER-C [Primary Care Provider] - Print Language: [place]
[2023-12-30 22:13] LABS: Troponin-I HS 2585 pg/mL (3.0-54.0)
[2023-12-30 22:26] LABS: BNP,B-Type NATRIURETIC PEPTIDE 3619.4 pg/mL (0-100)
[2023-12-30] MEDS: Acetaminophen 500 MG Tablet 1000 MG PO (22:27)
--- NOTE | 2023-12-30 22:39 | HP.PCM.HOS_ITS ---
HPI - General General Date of Admission: 12/30/23 Date of Service: 12/30/23 Chief Complaint: N/V/D x 3 days, melanotic stools. HPI Narrative The patient is a 68 y/o F w/ PMHx: HTN, HLD, Anxiety and Depression/Bipolar disorder, GERD, Former tobacco use, BURKE, Chronic migraines, PAF, Psoriatic arthritis, Dementia unclear type as well as unclear extent with unclear behavioral disturbance history, Nonobstructive CAD w/ Takotsubo syndrome with reduced EF of 20% 09/2023, Diabetes mellitus type II who presents to the [facility] ED on 12/30/23 with persistent nausea, emesis and diarrhea ongoing for the last nearly 72 hours with reportedly eating pizza the Sunday prior then awaking on Sunday feeling worse with onset of the symptoms with black melanotic stools reportedly since then prompting eventual ED evaluation to be cautious. She denied any abdominal pain. Patient per discussion with spouse who is also present may have had potentially foul-smelling urine and have been going more frequently but this is uncertain and patient is very fatigued. Patient had denied any specific dyspnea or upper respiratory type symptoms initially in the ED however following IV resuscitation with 1 L and then aggressive maintenance IV fluids although technically less then 30 cc/kg she became significantly distressed and evident overload with suspected flash pulmonary edema and was then placed on BiPAP at that time. Chest x-ray with likely obtained previous to the CT which was obtained after she declined of note. Workup in the ED included T96.1, heart 127, BP 133/83, respiratory rate 16, 98% on room air however desaturating down to 80% eventually placed on 6 L nasal cannula again desaturating down to 89% on 6 L nasal cannula eventually placed on BiPAP now currently 99% on 30% FiO2, most recent repeat vitals T101 core, heart rate 126, respiratory rate 22 with oxygenation at and BiPAP settings as previously noted, CBC with WC 19.4, hemoglobin 14.8, platelet 412 with left shift, unremarkable coags, CMP with BUN/: 41/1.96, GFR 27, glucose 405, lactic acid 3.2, hepatic profile not marked appearing, initial troponin 2872, repeat delta troponin 2585 with most recent previous to this noted 09/17/2023 admission with troponin 4278 at that time, BNP pending upon requested evaluation of patient, urinalysis with turbid appearing urine, specific gravity 1.025, protein 100, glucose 50, occult blood 25, negative nitrite, leukocyte esterase 500, urine RBCs 5-10, urine WBCs 50-100 with 4+ urine bacteria, urine culture pending per ED, blood culture pending per ED, rapid SARS COVID/influenza/RSV PCR negative, occult stool positive, CT chest/abdomen/pelvis with diffuse interlobular septal thickening consistent with pulmonary edema, subtle focal hazy perihilar central right upper lobe groundglass airspace disease likely pulmonary edema although could be infectious etiology or even potentially neoplastic cannot be excluded, trace bilateral pleural effusions with adjacent atelectasis, distal pulmonary artery branch vessel evaluation suboptimal secondary to timing of contrast bolus however there is no obvious large proximal pulmonary embolus, stable near complete obstruction of the right renal artery just beyond the origin, 2 cm hypoattenuating left anterior splenic lesion increased in size from previous year 1.2 cm, recommend follow-up evaluation as neoplastic process is not excluded, new posterior left apical 13 mm nodule with recommended comparison to previous imaging for follow-up imaging guidelines with no acute intra-abdominal findings, EKG with ST with nonspecific ST-T wave changes no acute evidence of ischemia. BNP obtained later and eventually resulted 3619.4 when patient overloaded appearance became apparent. In the ED patient was administered 1 L normal saline and started on maintenance IV fluid but became significantly short of breath with then BiPAP placed with concern for volume overload as a result. In the ED patient ministered Protonix 40 mg IV x 1, Zofran 4 mg IV x 2, Reglan 5 mg IV x 1, Ativan 0.5 mg IV x 1, azithromycin 500 mg IV x 1, Rocephin 2 g IV x 1 as well as Tylenol 1000 mg p.o. x 1. ED discussed case with Dr. Jimenez [employer] [facility] Medical History Non-ST elevation [place] (NSTEMI) Hiatal hernia Irritable bowel Back pain due to injury Restless legs Injury of head and neck High cholesterol Hearing loss, right Bipolar disorder Depression Anxiety GERD (gastroesophageal reflux disease) Former smoker Sleep apnea Atrial fibrillation Migraines Dementia Closed intertrochanteric fracture of left hip Psoriatic arthritis Nonobstructive atherosclerosis of coronary artery Obesity Type 2 diabetes mellitus Takotsubo syndrome Hyperlipidemia Essential (primary) hypertension NSTEMI (non-ST elevated myocardial infarction) (01/06/18) Home Medications ?Medication ?Instructions ?Recorded ?Last Taken ?Type alendronate 70 mg tablet 70 mg PO SA osteoporosis 01/06/18 Unknown History buspirone 7.5 mg tablet 15 mg PO BID anxiety 01/06/18 Unknown History fluoxetine 40 mg capsule 40 mg PO BID anxiety 01/06/18 Unknown History glipizide 5 mg tablet 10 mg PO DAILY antidiabetic 01/06/18 Unknown History ergocalciferol (vitamin D2) 1,250 50,000 unit PO .COMPLEX supplement 02/12/19 Unknown History mcg (50,000 unit) capsule lisinopril 20 mg tablet 20 mg PO DAILY #30 tabs 02/15/19 Unknown Rx gabapentin 100 mg capsule 100 mg PO Q8H pain 04/14/23 Unknown History meloxicam 7.5 mg tablet 7.5 mg PO DAILY pain 04/14/23 Unknown History ondansetron 4 mg disintegrating 4 mg PO TID PRN nausea and 04/14/23 Unknown Rx tablet vomiting #21 tabs oxybutynin chloride 10 mg 20 mg PO DAILY bladder 04/14/23 Unknown History tablet,extended release 24 hr simvastatin 40 mg tablet 40 mg PO DAILY cholesterol 04/14/23 Unknown History turmeric 1 cap PO DAILY supplement 04/14/23 Unknown History aspirin 81 mg tablet,delayed 81 mg PO BREAKFAST 30 days #30 tabs 09/20/23 Unknown Rx release pantoprazole 40 mg tablet,delayed 40 mg PO BID #60 tabs 09/20/23 Unknown Rx release (Protonix) carvedilol 6.25 mg tablet 6.25 mg PO BID Awaiting mail in 10/18/23 Unknown Rx RX, pt is out of med #60 tabs methocarbamol 500 mg tablet 1,000 mg PO BID 12/30/23 Unknown History Allergy/AdvReac Type Severity Reaction Status Date / Time morphine Allergy Mild confusion Verified 12/30/23 18:09 codeine Allergy Itching Verified 12/30/23 18:09 fentanyl AdvReac confusion Verified 12/30/23 18:09 naproxen AdvReac Other Verified 12/30/23 18:09 Family History Mother Cancer skin Father Cancer prostate Surgical History History of back surgery History of carpal tunnel release of both wrists History of hysterectomy History of left heart catheterization (01/07/18) Social History (Updated 12/30/23 @ 23:[address] Kanwal Aguilar MD) household members: spouse Smoking Status: Former smoker how long ago did patient quit smokin years ago alcohol intake: never substance use type: does not use caffeine: Yes Type: carbonated beverages Number of servings: 1 ROS ROS Narrative Admission Review of Systems: CONSTITUTIONAL: No weight loss, + weakness, fatigue, onset of appearance chills and fevers in the ED. HEENT: Eyes: No visual loss, blurred vision, double vision or yellow sclerae. Ears, Nose, Throat: No hearing loss, sneezing, congestion, runny nose or sore throat. SKIN: No rash or itching, lesions, wounds. CARDIOVASCULAR: + Onset of orthopnea in the ED following aggressive hydration. No chest pain, chest pressure or chest discomfort, palpitations, edema, syncopal events. RESPIRATORY: + Onset significant dyspnea, respiratory distress in the ED following aggressive hydration. No recent marked cough or sputum, wheezing, hemoptysis. GASTROINTESTINAL: + anorexia, nausea, vomiting, diarrhea, melanotic stools. No abdominal pain, BRBPR. GENITOURINARY: + Reported foul-smelling urine, increased frequency. No dysuria, urgency or retention. NEUROLOGICAL: + Confusion above baseline, underlying dementia with unclear behavioral disturbance history. No headache, dizziness, syncope, paralysis, ataxia, numbness or tingling in the extremities, focal weakness, change in bowel or bladder control, seizure. MUSCULOSKELETAL: + muscle, back pain, joint pain or stiffness. HEMATOLOGIC: + Chronic anemia, easy bleeding/bruising, active concern for GI bleed is noted. LYMPHATICS: No enlarged nodes. No history of splenectomy. PSYCHIATRIC: + History of anxiety and depression. ENDOCRINOLOGIC: No reports of sweating, cold or heat intolerance. No polyuria or polydipsia. ALLERGIES: No history of asthma, hives, eczema or rhinitis. Vital Signs Vital Signs Vital Signs: 12/30/23 18:10 12/30/23 20:28 12/30/23 20:28 Temperature 96.1 F L Temperature Source Temporal Pulse Rate 127 H 114 H Respiratory Rate 16 20 H Respiratory Pattern Blood Pressure 133/83 H 105/90 H Blood Pressure Mean 99 95 Pulse Ox 98 80 95 Oxygen Delivery Method Room Air Room Air Nasal Cannula Oxygen Flow Rate (L/min) 6 Fraction of Inspired Oxygen (FIO2) 12/30/23 20:39 12/30/23 21:16 12/30/23 21:30 Temperature 97.6 F L 101 F H Temperature Source Temporal Core Pulse Rate 116 H 127 H 137 H Respiratory Rate 32 H 24 H 28 H Respiratory Pattern Blood Pressure 111/83 H 86/70 L 134/81 H Blood Pressure Mean 92 75 98 Pulse Ox 98 89 89 Oxygen Delivery Method Nasal Cannula Nasal Cannula Nasal Cannula Oxygen Flow Rate (L/min) 4 6 6 Fraction of Inspired Oxygen (FIO2) 12/30/23 21:35 12/30/23 21:38 12/30/23 22:24 Temperature 100.1 F H Temperature Source Pulse Rate 126 H 116 H Respiratory Rate 24 H 22 H Respiratory Pattern Tachypnea Blood Pressure 103/79 Blood Pressure Mean 87 Pulse Ox 99 93 Oxygen Delivery Method Bi-pap Oxygen Flow Rate (L/min) Fraction of Inspired Oxygen (FIO2) 30 30 12/30/23 22:24 Temperature 100.1 F H Temperature Source Core Pulse Rate 117 H Respiratory Rate 21 H Respiratory Pattern Blood Pressure 103/97 H Blood Pressure Mean 99 Pulse Ox 92 Oxygen Delivery Method Bi-pap Oxygen Flow Rate (L/min) Fraction of Inspired Oxygen (FIO2) 30 Weight Weight: 150 lb 9.211 oz Body Mass Index (BMI) 25.8 Physical Exam Narrative Physical Examination: General: Awake but fatigued, slow responses but does appear oriented however clinically significantly ill-appearing, seated upright in the ED bed, currently has been taken off BiPAP but still increased work of breathing and accessory muscle usage, requested to be replaced. Skin: Normal color, normal turgor, no icterus, no cyanosis except occasional staged ecchymoses, abrasions, bilateral lower extremity venous stasis skin changes HEENT: AT/NC, EOMI, PERRLA, dry MM, no carotid bruits, + JVD noted. Lungs: Significantly diminished, greater bases, rales, audible moist upper airway sounds, increased respiratory rate with some accessory muscle usage, significantly decreased distress from previously but still increased work of breathing noted, no wheezing. Heart: Tachycardic with regular rhythm; no gallop, rub audible. Abdomen: Soft, NTTP, ND, hyperactive BS, no appreciated HSM. Extremities: No cyanosis, no clubbing, no marked peripheral edema, see skin. Neurological: Awake but fatigued, slow responses but does appear oriented however clinically significantly ill-appearing, seated upright in the ED bed, currently has been taken off BiPAP but still increased work of breathing and accessory muscle usage, requested to be replaced, cognitive function not baseline intact; pupils equally reactive to light and accommodation, cranial nerves grossly normal, moving all 4 extremities, no focal deficits, strength severely globally decreased. Psychiatric: Affect appears flat, fatigued, lethargic, respiratory distress has improved since initial onset in the ED, no acute evidence of depressive or anxiety feelings but does have underlying history. Results Lab / Micro Data 12/30/23 18:40 12/30/23 18:40 Labs: Laboratory Results - last 24 hr 12/30/23 18:40: WBC 19.4 H, RBC 5.00, Hgb 14.8, Hct 45.1, MCV 90.2, MCH 29.6, MCHC 32.8, RDW Std Deviation 41.9, RDW Coeff of Gerhard 12.9, Plt Count 412, MPV 10.0, Immature Gran % (Auto) 0.600, Neut % (Auto) 89.5 H, Lymph % (Auto) 6.0 L, [place] % (Auto) 3.7, Eos % (Auto) 0.0, Baso % (Auto) 0.2, Absolute Neuts (auto) 17.3 H, Absolute Lymphs (auto) 1.17, Nucleated RBC % 0, PT 14.4, INR 1.1, APTT 26.1, Sodium 140, Potassium 3.8, Chloride 105, Carbon Dioxide 21.0, Anion Gap 14, BUN 41 H, Creatinine 1.96 H, Estim Creat Clear Calc 25.36, Est GFR (MDRD) Af Amer 32 L, Est GFR (MDRD) Non-Af 27 L, BUN/Creatinine Ratio 20.9 H, Glucose 405 H, Calcium 9.6, Total Bilirubin 0.70, AST 36, ALT 38, Alkaline Phosphatase 93, T roponin I High Sens 2872 H*, Total Protein 8.2, Albumin 4.1, Globulin 4.1, Albumin/Globulin Ratio 1.0, Lipase 20 12/30/23 19:00: Lactic Acid 3.2 H* 12/30/23 19:02: B-Natriuretic Peptide 3619.4 H, Blood Type O POSITIVE, Antibody Screen NEGATIVE 12/30/23 21:10: Urine Color Yellow, Urine Clarity Turbid, Urine pH 5.0, Ur Specific [place] 1.025, Urine Protein 100 H, Urine Glucose (UA) 50 H, Urine Ketones Negative, Urine Occult Blood 25 H, Urine Nitrite Negative, Urine Bilirubin 1 H, Urine Urobilinogen Normal, Ur Leukocyte Esterase 500 H, Urine RBC 5-10 SEEN, Urine WBC 50-100 SEEN, Ur Squamous Epith Cells 0-5 SEEN, Ur Renal Epithelial Cell 0-5 SEEN, Urine Bacteria 4+, Hyaline Casts 0-5 SEEN, Urine Mucus 0 SEEN 12/30/23 21:20: Troponin I High Sens 2585 H* Micro: Microbiology 12/30/23 20:00 Mucosa - Nose SARS-CoV-2, Influenza & RSV (PCR) - Final 12/30/23 18:50 Stool Stool Occult Blood (EARLE) - Final Occult Blood Positive Imaging Radiology Impression Chest/Abdomen/Pelvis CTA 12/30/23 18:52 IMPRESSION: Diffuse interlobular septal thickening consistent with pulmonary edema. Subtle focal hazy perihilar central right upper lobe groundglass airspace disease, likely associated pulmonary edema although other infectious etiology or even neoplastic process is not excluded. Trace bilateral pleural effusions with adjacent atelectasis. Recommend follow-up to resolution. Distal pulmonary artery branch vessel evaluation is suboptimal secondary to timing of contrast bolus as well as respiratory motion, however, there is no obvious large proximal pulmonary embolus. 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 2 cm hypoattenuating left anterior splenic lesion increased in size from previous year 1.2 cm. Recommend follow-up evaluation as neoplastic process is not excluded. New posterior left apical 13 mm nodule. Recommend comparison with previous imaging to document long-term stability versus follow-up evaluation as per Fleischner guidelines as neoplastic process is not excluded. No acute abdominal abnormality is identified. Electronically Signed: Mikal Gold MD at 21:59 EST , Assessment & Plan Assessment/Plan (1) Urinary tract infection: PLAN: Plan The patient is a 68 y/o F w/ PMHx: HTN, HLD, Anxiety and Depression/Bipolar disorder, GERD, Former tobacco use, BURKE, Chronic migraines, PAF, Psoriatic arthritis, Dementia unclear type as well as unclear extent with unclear behavioral disturbance history, Nonobstructive CAD w/ Takotsubo syndrome with reduced EF of 20% 09/2023, Diabetes mellitus type II who presents to the [facility] ED on 12/30/23 with persistent nausea, emesis and diarrhea ongoing for the last nearly 72 hours with reportedly eating pizza the Sunday prior then awaking on Sunday feeling worse with onset of the symptoms with black melanotic stools reportedly since then prompting eventual ED evaluation to be cautious. #1. Acute Hypoxic Respiratory Failure, possibly multifactorial, suspected flash pulmonary edema/HFrEF exacerbation with previous noted Takotsubo syndrome suspected likely secondary to aggressive hydration with fluid resuscitation in the emergency room in addition to questionable pneumonia, more notable possible right upper lobe on CT imaging but lower suspicion given no URI type symptoms upon initial arrival: Will admit to the ICU, will continue BiPAP placement, will request livestock caretaker and cardiology involvement, once able will wean to supplemental nasal cannula oxygen eventually to room air as able, as needed albuterol, will until able to de-escalate and rule out pneumonia will maintain on IV Zosyn and vancomycin with MRSA screen given severity of presentation, encourage head of bed, I-S parameters, request sputum culture, urine antigen, full respiratory viral panel, given GI losses and urinalysis with elevated specific gravity concerned about dehydration however initially appearing certainly on film and with recent significant deterioration with IV fluid aggressive hydration overload appearance we will avoid concept of 30 cc/kg IV fluid bolus at this time but continue to monitor, if necessary may certainly consider pulsed dose diuretic therapy but will continue to maintain on BiPAP, continue on cardiac telemetry, cycle cardiac enzymes, obtain serial EKGs as needed, monitor I/Os, holding asa given GI bleed component, will obtain TSH and magnesium, ECHO requested. PT/OT/case management consulted for discharge planning. #2. Acute NSTEMI, suspect demand type II given number 1 as well as #3 with history of recent cardiac catheterization with evidence of Takotsubo's disease: EKG in ED w/ ST with no acute evidence of ischemia, CT chest/abdomen/pelvis with diffuse interlobular septal thickening consistent with pulmonary edema, subtle focal hazy perihilar central right upper lobe groundglass airspace disease likely pulmonary edema although could be infectious etiology or even potentially neoplastic cannot be excluded, trace bilateral pleural effusions with adjacent atelectasis, distal pulmonary artery branch vessel evaluation suboptimal secondary to timing of contrast bolus however there is no obvious large proximal pulmonary embolus, initial troponin 2872-> repeat delta 2585. Will maintain on a monitored bed, continue serial cardiac enzymes and EKGs. 09/17/2023 cardiac catheterization with very mild coronary disease with cardiomyopathy out of proportion to the coronary artery disease with pattern suggestive of Takotsubo's disease at that time with recommended medical therapy of note. Given concern for concurrent GI bleed with diarrhea we will hold off on heparin drip and avoid aggressive aspirin therapy at this time. Echocardiogram requested. Given recent cardiac catheterization low suspicion for change in this amount of timeline but will request cardiology to follow. Magnesium level requested. FLP in AM. #3. Acute GI Bleed with reported melanotic schools, concurrently nausea and emesis as well as diarrhea: Admission hemoglobin 14.8, baseline previously had been 12-14, most recent prior 10/11/2023 hemoglobin 12.7, reports ongoing melanotic stools since Sunday, guaiac is positive, will obtain serial H+H assessments, type and screen initiated per ED physician, will maintain on IV Protonix, as noted pending stool C. difficile/enteric to be cautious especially given a myriad of ongoing concurrent issues, holding off on any antiplatelet/anticoagulant therapy in the setting of NSTEMI secondary to this concurrent presentation, will request gastroenterology involvement, will allow clears until midnight with n.p.o. status following with close continue hemoglobin assessments. #4. N/V/D, unclear if related with acute complicated urinary tract infection, questionable pneumonia or potentially concurrent gastroenteritis or primarily secondary to acute GI bleed component: Will obtain c diff, stool cx to be cautious continue antibiotic therapies for possible as noted pneumonia and apparent complicated urinary tract infection, will add lactobacillus, anti- emetics, pain regimen PRN. #5. Acute Complicated Urinary Tract Infection: Most recent culture noted 04/14/2023 with presumptive E. coli with gutierrez sensitivity, UA upon ED evaluation remarkable, pending UCx, monitor I/Os, continue IV ABX therapy as noted above number 1 with IV vancomycin with MRSA screen with plan de-escalation as able and IV Zosyn w/ transition as able pending sensitivities and speciation. Bld cx x 2 obtained in the ED. #6. Lactic Acidosis: Multifactorial, likely secondary to demand with hypoxemia as noted in addition to potentially infectious presentation with UTI, will continue to trend lactic acid per facility protocol however avoiding aggressive IV fluids given concern for volume overloaded status complicating presentation. #7. Acute kidney injury on CKD stage III unclear subtype per GFR trending: Secondary to acute presentation as noted with UTI, NSTEMI, overload, questionable pneumonia. Admission BUN/Cr 41/1.96, GFR 27, prior baseline creatinine noted to be primarily 0.7-1.0 maximum. Given appearance of volume overload will hold off on any aggressive hydration, will hold off on any nephrotoxic regimen aside from IV pulse dose Lasix as noted, continue very closely monitor renal function, continue treatment of urinary tract infection as noted. #8. Acute encephalopathy, multifactorial, secondary to infectious presentation with acute UTI, acute kidney injury, dehydration with GI losses, NSTEMI as well as respiratory failure secondary to more suspected flash pulmonary edema however cannot rule out pneumonia: Continue evaluation and treatments as noted, discussed with spouse and patient significantly ill status and as noted planned ICU admission. #9. Incidental hypoattenuating left anterior splenic lesion, increasing in size from prior: CT chest/abdomen/pelvis with 2 cm hypoattenuating left anterior splenic lesion which increased in size from previous year of 1.2 cm, will need follow-up evaluation and imaging outpatient. #9. Incidental posterior left apical 50 mm nodule: CT chest/abdomen/pelvis with new posterior left apical nodule, will need to have follow-up imaging for comparison and continued evaluation. #10. Known right renal artery obstruction: CT chest/abdomen/pelvis CTA with stable near complete obstruction the right renal artery just beyond the origin, given GI bleed holding aspirin therapy, holding hypertensive regimen given hypotensive status, continue statin therapy. #11. Hypertension: Given presentation BP low normal holding all hypertensive regimen, add back once clinically appropriate. #12. Hyperlipidemia: Continue home statin regimen. AM FLP. #13. Anxiety and depression/bipolar disorder: Will continue home BuSpar and fluoxetine home regimen. #14. PAF: Holding patient home Coreg regimen, holding aspirin therapy given GI bleed presentation concurrently as noted. #15. Dementia, unclear type with unclear behavioral disturbance history: Complicates presentation, per current list does not appear to be on any chronic type regimen, will maintain on fall and aspiration precautions, PT/OT/case management consulted for discharge planning. #16. Diabetes mellitus type II: Holding oral regimen, hemoglobin A1c requested, as noted will allow clears until midnight if able to tolerate otherwise will maintain n.p.o. status, maintain on accu checks w/ ISS. #17. Former tobacco use: Encourage continued tobacco cessation. #18. BURKE: Will continue BiPAP as noted above. #19. DVT prophylaxis: SCDs. #20. CODE status: Patient HCPOA and living will are not in place but her who is present would be her medical decision-maker if necessary. Discussed CODE status at length including difference between FULL code, DNR-CCA and DNR-CC status. Following discussions about the differences in these status, requested Full Code status. Advanced Care Planning Face to Face Time: 16 minutes. Charges/Coding Visit Charges Inpatient E&M: 10567 Init Hosp L3 Procedures Hospitalists Procedures: 49360 Advncd Care Plan 30 Min
--- NOTE | 2023-12-30 22:47 | EKG12_ITS ---
Test Reason : Dysrhythmia Blood Pressure : */* mmHG Vent. Rate : 123 BPM Atrial Rate : 123 BPM P-R Int : 126 ms QRS Dur : 150 ms QT Int : 352 ms P-R-T Axes : 3 -25 113 degrees QTcB Int : 503 ms Sinus tachycardia Left bundle branch block Abnormal ECG When compared with ECG of 30-Dec-2023 19:16, MANUAL COMPARISON REQUIRED DATA IS UNCONFIRMED Confirmed by TERRI WRIGHT, KATARINA ([id number]), film editor supervisor CAIT VIDES ([id number]) on 12/31/2023 2:05:12 PM Referred By: Lauren Confirmed By: KATARINA MURRAY MD
[2023-12-30] MEDS: Azithromycin 500 MG in Dextrose 5%-Water (250mL Bag) 250 ML 250 MG IV (22:50)
[2023-12-30 23:10] LABS: Reflex Lactate? Y
[2023-12-30 23:14] LABS: Magnesium 1.3 mg/dL (1.6-2.6)
--- NOTE | 2023-12-30 23:20 | ECHOCS_ITS ---
Reason For Study: CHF/ NSTEMI Procedure This was a 2D Doppler, Color Flow transthoracic echocardiogram. The study was technically difficult. Contrast injection was performed. The patient was scanned supine. Patient was on BiPap during exam. Exam performed portable in ICU/CCU. Left Ventricle Normal LV size. The left ventricular ejection fraction is 20 %. Severe segmental systolic dysfunction (see wall motion). Temple : Severely Hypokinetic. Anterior Temple : Severely Hypokinetic. Mid-Anterior : Severely Hypokinetic. Mid-anteroseptal : Severely Hypokinetic. Right Ventricle Normal RV size. Normal systolic function. Atria Normal left atrium. Normal right atrium. Mitral Valve There is mild mitral annular calcification. Tricuspid Valve Normal tricuspid valve. Aortic Valve Trisinus/trileaflet aortic valve. Mild focal aortic valve thickening. Pulmonic Valve The pulmonic valve is not well visualized. Great Vessels Normal aortic root. The pulmonary artery is normal size. Inferior vena cava collapse with respiration. Pericardium/Pleural No pericardial effusion. Medication Diluted definity 2.5ml given slow IV push to enhance endocardial definition. MMode/2D Measurements & Calculations LVIDd: 5.1 cm IVSd: 0.97 cm LVOT diam: 1.9 cm LVIDs: 4.3 cm LVPWd: 0.97 cm RVDd: 2.7 cm FS: 16.0 % LVOT area: 2.9 cm2 asc Aorta Diam: 3.4 cm LAV(MOD-bp): 42.4 ml LVAd ap4: 34.2 cm2 LAV(MOD-bp) Indexed: 24.5 ml/m2 LVLd ap4: 7.8 cm LAV(MOD-sp2): 44.5 ml EDV(MOD-sp4): 121.5 ml LAV(MOD-sp4): 39.0 ml EDV(sp4-el): 126.6 ml LVAs ap4: 30.5 cm2 LVLs ap4: 7.6 cm ESV(MOD-sp4): 98.0 ml ESV(sp4-el): 103.3 ml EF(MOD-sp4): 19.3 % EF(sp4-el): 18.4 % LVAd ap2: 37.2 cm2 SV(MOD-sp4): 23.4 ml SV(MOD-sp2): 33.1 ml LVLd ap2: 8.2 cm SI(MOD-sp4): 13.5 ml/m2 SI(MOD-sp2): 19.1 ml/m2 EDV(MOD-sp2): 137.8 ml EDV(sp2-el): 143.3 ml LVAs ap2: 31.3 cm2 LVLs ap2: 7.6 cm ESV(MOD-sp2): 104.7 ml ESV(sp2-el): 109.3 ml EF(MOD-sp2): 24.0 % SV(sp4-el): 23.2 ml Ao sinus diam: 3.[address] Junction: 2.7 cm LA dimension(2D): 3.4 cm LA A4 area: 15.0 cm2 RA A4 area: 8.5 cm2 TAPSE: 1.7 cm Time Measurements MV dec time: 0.11 sec Doppler Measurements & Calculations MV E max moustapha: 112.9 cm/sec Lat Peak E' Moustapha: 10.9 cm/sec Med Peak E' Moustapha: 6.2 cm/sec E/E' lat: 10.3 E/E' med: 18.1 Ao V2 max: 88.4 cm/sec LV V1 max: 58.9 cm/sec SV(LVOT): 28.3 ml Ao max P.2 mmHg LV V1 max P.4 mmHg Ao V2 mean: 64.7 cm/sec LV V1 mean P.80 mmHg Ao mean P.8 mmHg LV V1 mean: 42.6 cm/sec Ao V2 VTI: 12.1 cm LV V1 VTI: 9.7 cm AV (velocity ratio): 0.81 IDALIA(I,D): 2.3 cm2 IDALIA(V,D): 1.9 cm2 PA V2 max: 92.4 cm/sec TR max moustapha: 351.3 cm/sec TR max P.4 mmHg ECHO/Echo Complete W/ Contrast Interpretation Summary The left ventricular ejection fraction is 20 %. Normal LV size. Severe segmental systolic dysfunction (see wall motion). Contrast injection was performed. Ordering Physician: Kanwal Aguilar Performed By: Gladys Fenton RDCS and Student
--- NOTE | 2023-12-30 23:44 | CON.PCM.CC_ITS ---
HPI Consult Data Date of Consult: 12/31/23 HPI Narrative Reason for Consultation: respiratory failure, GIB HPI Narrative: N/V/D x 3 days, melanotic stools. HPI Narrative 68Y F PMH HTN, HLD, Anxiety/Depression/Bipolar disorder, GERD, Former tobacco use, BURKE, Chronic migraines, PAF, Psoriatic arthritis, Dementia unclear type as well as unclear extent with unclear behavioral disturbance history, Nonobstructive CAD w/ Takotsubo syndrome with reduced EF of 20% 09/2023, Diabetes mellitus type II who presented to the ED with N/V/diarrhea c/b the development of melenic stools prompting eventual ED evaluation. ROS also positive for foul- smelling urine, increased urinary frequency and fatigue. In the ED patient received aggressive fluid resuscitation due to presentation c/w sepsis but she developed respiratory distress & was started on NIV.. Due to soft vitals and concern for intravascular hypovolemia diuresis was withheld. She received emp IV Abx, was started on PPI drip and ultimately admitted to the ICU where I was consulted for critical care comanagement. Per admitting H&P CBC with WC 19.4, hemoglobin 14.8, platelet 412 with left shift, unremarkable coags, CMP with BUN/Cr: 41/1.96, GFR 27, glucose 405, lactic acid 3.2, hepatic profile not marked appearing, initial troponin 2872, repeat delta troponin 2585 with most recent previous to this noted 09/17/2023 admission with troponin 4278 at that time, BNP pending upon requested evaluation of patient, urinalysis with turbid appearing urine, specific gravity 1.025, protein 100, glucose 50, occult blood 25, negative nitrite, leukocyte esterase 500, urine RBCs 5-10, urine WBCs 50-100 with 4+ urine bacteria, urine culture pending per ED, blood culture pending per ED, rapid SARS COVID/influenza/RSV PCR negative, occult stool positive, CT chest/abdomen/pelvis with diffuse interlobular septal thickening consistent with pulmonary edema, subtle focal hazy perihilar central right upper lobe groundglass airspace disease likely pulmonary edema although could be infectious etiology or even potentially neoplastic cannot be excluded, trace bilateral pleural effusions with adjacent atelectasis, distal pulmonary artery branch vessel evaluation suboptimal secondary to timing of contrast bolus however there is no obvious large proximal pulmonary embolus, stable near complete obstruction of the right renal artery just beyond the origin, 2 cm hypoattenuating left anterior splenic lesion increased in size from previous year 1.2 cm, recommend follow-up evaluation as neoplastic process is not excluded, new posterior left apical 13 mm nodule with recommended comparison to previous imaging for follow-up imaging guidelines with no acute intra-abdominal findings, EKG with ST with nonspecific ST-T wave changes no acute evidence of ischemia. BNP obtained later and eventually resulted 3619.4 when patient overloaded appearance became apparent. [facility] Medical History Non-ST elevation [place] (NSTEMI) Hiatal hernia Irritable bowel Back pain due to injury Restless legs Injury of head and neck High cholesterol Hearing loss, right Bipolar disorder Depression Anxiety GERD (gastroesophageal reflux disease) Former smoker Sleep apnea Atrial fibrillation Migraines Dementia Closed intertrochanteric fracture of left hip Psoriatic arthritis Nonobstructive atherosclerosis of coronary artery Obesity Type 2 diabetes mellitus Takotsubo syndrome Hyperlipidemia Essential (primary) hypertension NSTEMI (non-ST elevated myocardial infarction) (01/06/18) Home Medications ?Medication ?Instructions ?Recorded ?Last Taken ?Type alendronate 70 mg tablet 70 mg PO SA osteoporosis 01/06/18 Unknown History buspirone 7.5 mg tablet 15 mg PO BID anxiety 01/06/18 Unknown History fluoxetine 40 mg capsule 40 mg PO BID anxiety 01/06/18 Unknown History glipizide 5 mg tablet 10 mg PO DAILY antidiabetic 01/06/18 Unknown History ergocalciferol (vitamin D2) 1,250 50,000 unit PO .COMPLEX supplement 02/12/19 Unknown History mcg (50,000 unit) capsule lisinopril 20 mg tablet 20 mg PO DAILY #30 tabs 02/15/19 Unknown Rx gabapentin 100 mg capsule 100 mg PO Q8H pain 04/14/23 Unknown History meloxicam 7.5 mg tablet 7.5 mg PO DAILY pain 04/14/23 Unknown History ondansetron 4 mg disintegrating 4 mg PO TID PRN nausea and 04/14/23 Unknown Rx tablet vomiting #21 tabs oxybutynin chloride 10 mg 20 mg PO DAILY bladder 04/14/23 Unknown History tablet,extended release 24 hr simvastatin 40 mg tablet 40 mg PO DAILY cholesterol 04/14/23 Unknown History turmeric 1 cap PO DAILY supplement 04/14/23 Unknown History aspirin 81 mg tablet,delayed 81 mg PO BREAKFAST 30 days #30 tabs 09/20/23 Unknown Rx release pantoprazole 40 mg tablet,delayed 40 mg PO BID #60 tabs 09/20/23 Unknown Rx release (Protonix) carvedilol 6.25 mg tablet 6.25 mg PO BID Awaiting mail in 10/18/23 Unknown Rx RX, pt is out of med #60 tabs methocarbamol 500 mg tablet 1,000 mg PO BID 12/30/23 Unknown History Allergy/AdvReac Type Severity Reaction Status Date / Time morphine Allergy Mild confusion Verified 12/30/23 18:09 codeine Allergy Itching Verified 12/30/23 18:09 fentanyl AdvReac confusion Verified 12/30/23 18:09 naproxen AdvReac Other Verified 12/30/23 18:09 Family History Mother Cancer skin Father Cancer prostate Surgical History History of back surgery History of carpal tunnel release of both wrists History of hysterectomy History of left heart catheterization (01/07/18) Social History (Updated 12/30/23 @ 23:[address] Kanwal Aguilar MD) household members: spouse Smoking Status: Former smoker how long ago did patient quit smokin years ago alcohol intake: never substance use type: does not use caffeine: Yes Type: carbonated beverages Number of servings: 1 ROS ROS Narrative Full 12 point ROS completed and neg unless stated in HPI above. Objective Data Objective Data Vital Signs: Vital Signs Last response 3 Temperature 37.8 C H 12/30/23 22:24 Temperature Source Core 12/30/23 22:24 Pulse Rate 118 H 12/30/23 23:30 Respiratory Rate 22 H 12/30/23 23:30 Respiratory Pattern Tachypnea 12/30/23 21:35 Blood Pressure 104/77 12/30/23 23:30 Blood Pressure Mean 86 12/30/23 23:30 Blood Pressure Source Monitor 12/30/23 23:30 Blood Pressure Position Semi-Fowlers 12/30/23 23:30 Blood Pressure Location Left Arm 12/30/23 23:30 Pulse Ox 91 12/30/23 23:30 Oxygen Delivery Method Bi-pap 12/30/23 23:30 Oxygen Flow Rate (L/min) 6 12/30/23 21:30 Fraction of Inspired Oxygen (FIO2) 30 12/30/23 22:24 I&O: I&O Last 24 Hours 3 12/29/23 12/30/23 12/30/23 23:59 11:59 23:59 Intake Total 1025.8 / 1025.8 Balance 1025.8 / 1025.8 I&O: Total Stay 3 12/30/23 18:08 thru 12/30/23 23:21 Intake Total 1025.8 Balance 1025.8 Current Meds Ordered / Administered: Current meds ordered / Administered 3 Generic Name Dose Route Start Last Admin Trade Name Freq PRN Reason Stop Dose Admin Acetaminophen 650 mg 12/30/23 23:20 Acetaminophen 325 Mg Tablet PO Q4H PRN PRN Fever, pain 1-11/21 Albuterol Sulfate 2.5 mg 12/30/23 23:20 Albuterol 2.5 Mg/3 Ml Vial.Neb. INHALATION Q2H PRN PRN Dyspnea, wheezing Atorvastatin Calcium 20 mg 12/31/23 10:00 Atorvastatin Calcium 20 Mg Tablet PO DAILY REI Budesonide 0.5 mg 12/30/23 23:20 Budesonide Respules 0.5 Mg/2 Ml Ampul.Neb. INHALATION BID.RT REI Buspirone HCl 15 mg 12/31/23 10:00 Buspirone 15 Mg Tablet PO BID [facility] Fluoxetine HCl 40 mg 12/31/23 10:00 Fluoxetine Hcl 40 Mg Capsule PO BID [facility] Gabapentin 100 mg 12/31/23 06:00 Gabapentin 100 Mg Capsule PO Q8 REI Glucagon 1 mg 12/30/23 23:20 Glucagon 1 Mg/Ml Syringe IM X1 PRN HYPOGLYCEMIA Protocol Guaifenesin 10 ml 12/30/23 23:20 Guaifenesin 10 Ml Udc (200mg/10ml) PO Q4H PRN PRN COUGH Pantoprazole Sodium 80 mg/ 100 mls @ 10 mls/hr 12/31/23 00:00 Sodium Chloride CONT INF Q10H [facility] Piperacillin Sod/Tazobactam 50 mls @ 12.5 mls/hr 12/30/23 23:20 Sod 3.375 gm/ Sodium Chloride IV Q8 [facility] Vancomycin IV-PHARMACY TO DOSE 500 mls @ 250 mls/hr 12/30/23 23:20 1 each/ Sodium Chloride IV X1 PRN Rx to Dose Protocol Dextrose 250 mls @ 0 mls/hr 12/30/23 23:20 Dextrose 10%-Water IV .Q0M PRN HYPOGLYCEMIA Protocol As Directed Vancomycin HCl 1,750 mg/ 535 mls @ 250 mls/hr 12/31/23 00:00 Sodium Chloride IV 12/31/23 02:08 X1 ONE Sodium Chloride 500 mls @ 15 mls/hr 12/30/23 23:37 IV .[id number] PRN Saline Flush Sodium Chloride 500 mls @ 15 mls/hr 12/30/23 23:37 IV .[id number] PRN Additional IVPB Infusion Insulin Human Lispro 0 unit 12/31/23 00:00 Insulin Lispro 100 Unit/Ml Insuln.Pen SC Q6H REI Protocol Iopamidol 0 ml 12/30/23 20:30 12/30/23 21:06 Contrast Allergy Safety Check IV Not Given X1 [facility] Melatonin 3 mg 12/30/23 23:20 Melatonin 3 Mg Tablet PO QHS PRN PRN INSOMNIA Ondansetron HCl 4 mg 12/30/23 23:20 Ondansetron 4 Mg/2 Ml Vial IV Q8H PRN PRN NAUSEA/VOMITING Prochlorperazine Edisylate 5 mg 12/30/23 23:20 Prochlorperazine 10 Mg/2 Ml Vial IV Q4H PRN PRN Breakthrough Nausea/Vomiting Sodium Chloride 10 - 40 ml 12/30/23 23:37 0.9% Saline Lock 10 Ml Syringe IV UD PRN SALINE FLUSH Lab / Micro Data 12/30/23 23:30 12/30/23 18:40 Labs: Laboratory Results - last 24 hr 12/30/23 18:40: WBC 19.4 H, RBC 5.00, Hgb 14.8, Hct 45.1, MCV 90.2, MCH 29.6, MCHC 32.8, RDW Std Deviation 41.9, RDW Coeff of Gerhard 12.9, Plt Count 412, MPV 10.0, Immature Gran % (Auto) 0.600, Neut % (Auto) 89.5 H, Lymph % (Auto) 6.0 L, [place] % (Auto) 3.7, Eos % (Auto) 0.0, Baso % (Auto) 0.2, Absolute Neuts (auto) 17.3 H, Absolute Lymphs (auto) 1.17, Nucleated RBC % 0, PT 14.4, INR 1.1, APTT 26.1, Sodium 140, Potassium 3.8, Chloride 105, Carbon Dioxide 21.0, Anion Gap 14, BUN 41 H, Creatinine 1.96 H, Estim Creat Clear Calc 25.36, Est GFR (MDRD) Af Amer 32 L, Est GFR (MDRD) Non-Af 27 L, BUN/Creatinine Ratio 20.9 H, Glucose 405 H, Calcium 9.6, Total Bilirubin 0.70, AST 36, ALT 38, Alkaline Phosphatase 93, T roponin I High Sens 2872 H*, Total Protein 8.2, Albumin 4.1, Globulin 4.1, Albumin/Globulin Ratio 1.0, Lipase 20 12/30/23 19:00: Lactic Acid 3.2 H* 12/30/23 19:02: B-Natriuretic Peptide 3619.4 H, Blood Type O POSITIVE, Antibody Screen NEGATIVE 12/30/23 21:10: Urine Color Yellow, Urine Clarity Turbid, Urine pH 5.0, Ur Specific Arabi 1.025, Urine Protein 100 H, Urine Glucose (UA) 50 H, Urine Ketones Negative, Urine Occult Blood 25 H, Urine Nitrite Negative, Urine Bilirubin 1 H, Urine Urobilinogen Normal, Ur Leukocyte Esterase 500 H, Urine RBC 5-10 SEEN, Urine WBC 50-100 SEEN, Ur Squamous Epith Cells 0-5 SEEN, Ur Renal Epithelial Cell 0-5 SEEN, Urine Bacteria 4+, Hyaline Casts 0-5 SEEN, Urine Mucus 0 SEEN 12/30/23 21:20: Magnesium 1.3 L, Troponin I High Sens 2585 H* Micro: Microbiology 12/30/23 20:00 Mucosa - Nose SARS-CoV-2, Influenza & RSV (PCR) - Final 12/30/23 18:50 Stool Stool Occult Blood (EARLE) - Final Occult Blood Positive Imaging Radiology Impression Chest/Abdomen/Pelvis CTA 12/30/23 18:52 IMPRESSION: Diffuse interlobular septal thickening consistent with pulmonary edema. Subtle focal hazy perihilar central right upper lobe groundglass airspace disease, likely associated pulmonary edema although other infectious etiology or even neoplastic process is not excluded. Trace bilateral pleural effusions with adjacent atelectasis. Recommend follow-up to resolution. Distal pulmonary artery branch vessel evaluation is suboptimal secondary to timing of contrast bolus as well as respiratory motion, however, there is no obvious large proximal pulmonary embolus. 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 2 cm hypoattenuating left anterior splenic lesion increased in size from previous year 1.2 cm. Recommend follow-up evaluation as neoplastic process is not excluded. New posterior left apical 13 mm nodule. Recommend comparison with previous imaging to document long-term stability versus follow-up evaluation as per Fleischner guidelines as neoplastic process is not excluded. No acute abdominal abnormality is identified. Electronically Signed: Mikal Gold MD at 21:59 EST , Assessment and Plan . Assessment and plan: PE: General: Well developed, in no distress, + NIV HEENT: anicteric Sclera, nl nose; supple neck, no masses Cardiovascular: S1/S2; No rubs, gallops; no displaced PM Respiratory: faint B/L crackles, no wheezes or rhonchi Abdominal: Non-tender; Non distended; hypoBS x 4; No Hepatosplenomegaly Extremities: Warm, well perfused; No clubbing, cyanosis; capillary refill < 2 sec Skin: intact, no rashes Neurological: A&Ox3; no gross deficits appreciated A/P: #Acute hypox respiratory failure: cont NIV; can attempt transition to NC as tolerated while awake but good idea to use NIV while resting tonight; titrate to sats ~90% #Sepsis: sp fluid bolus with subsequent vol overload; panCT imaging noted; cont broad spectrum emp IV Abx- vanc/Zosyn; F/U Cx & other micro workup; PRN NEpi to keep MAP > 65; trend lactate #UTI: see above #HFrEF/flash pulm edema: cont NIV; consider diuresis if hemodynamics allow; repeat TTE; cardiology on board #NSTEMI: poor candidate for A/C given GIB; cont trend [place]; F/U TTE; cardiology following #GIB: cont PPI; consider GI consult #DURAN: no IVF given above; cont strict I/Os #Lactic acidosis: see above #Paroxysmal AFib: does not appear to be on home A/C; monitor for worsening #DM: cont SSI to keep goal ~140-200 mg/dL #Nonobstructive CAD w/ Takotsubo syndrome with reduced EF of 20% 09/2023 #Former tobacco abuse #Dementia vs other behavioral disturbance #Psoriatic arthritis PO diet as tolerated SCDs, PPI Guarded prognosis Critical Care Time: 60 min The entirety of this encounter was done via Telemedicine
[2023-12-30 23:55] LABS: Hematocrit 43.4 % (37-47); Hemoglobin 13.5 g/dL (12.0-15.0)
[2023-12-31] VITALS (29 sets, daily range): BP systolic 96–141; BP diastolic 60–90; PULSE 100–123; RESP 12–28; TEMP 37.5–38.3; O2SAT 2–100; BMI 16.9; BMI 17.2
[2023-12-31] MEDS: Vancomycin HCl 1,750 MG in 0.9% Normal Saline (500mL Bag) 500 ML 250 MG IV
[2023-12-31 00:16] LABS: Lactic Acid 3.2 mmol/L (0.4-1.9)
[2023-12-31 00:20] LABS: Bedside Glucose 300 mg/dL (74-106)
[2023-12-31] MEDS: Magnesium Sulfate 4gm/100mL 4 GM/100 ML IV.SOLN. IV (00:40)
--- NOTE | 2023-12-31 00:51 | PCM.RX.CS ---
Consult Antibiotic Management Pharmacy has been consulted to manage selected antibiotic: Vancomycin Type of Intervention Type of Consult: New start Suspected Infection Suspected Infection: Pneumonia Labs Labs: Sodium 140 mmol/L (136-145) 12/30/23 18:40 Potassium 3.8 mmol/L (3.5-5.1) 12/30/23 18:40 Chloride 105 mmol/L (98-107) 12/30/23 18:40 Carbon Dioxide 21.0 mmol/L (21.0-32.0) 12/30/23 18:40 Anion Gap 14 (5-15) 12/30/23 18:40 BUN 41 mg/dL (7-18) H 12/30/23 18:40 Creatinine 1.96 mg/dL (0.55-1.02) H 12/30/23 18:40 Est GFR (MDRD) Af Amer 32 mL/min (>60) L 12/30/23 18:40 Est GFR (MDRD) Non-Af 27 mL/min (>60) L 12/30/23 18:40 BUN/Creatinine Ratio 20.9 RATIO (10-20) H 12/30/23 18:40 Glucose 405 mg/dL (74-106) H 12/30/23 18:40 Microbiology Microbiology: Microbiology 12/30/23 20:00 Mucosa - Nose SARS-CoV-2, Influenza & RSV (PCR) - Final 12/30/23 18:50 Stool Stool Occult Blood ([facility]AR[facility]) - Final Occult Blood Positive Dosing Weight Weight used for dosin.3 kg Estimated Creatinine Clearance Estimated Creatinine Clearance: 29.5 Goal Trough Goal Trough: 15-20 mcg/mL Pharmacy Plan for Drug Dosing Pharmacy Plan for Drug Dosing: NEW START IV VANCOMYCIN Consulting Physician: Dr. Aguilar Indication: Pneumonia Goal Trough: 15-20 SrCr: 1.96 CrCl: 25.9 ml/min Comments: Dosing based on weight recorded in ED (68.3kg) as bed scale was not properly zeroed out upon ICU admission; Received 1750mg x1 loading dose @ 0000 12/31/23 Vancomycin Dose: 750mg Q24H to start @ 0000 01/01/24 Pending Level: Vancomycin trough @ 23:30 01/02/24 Pharmacy Service will continue to monitor and adjust dosing as required. Follow-Up Labs Follow-Up Labs: Trough: Vancomycin (01/02/24 @ 23:30)
[2023-12-31] MEDS: Piperacil/Tazobactam 3.375 GM in 0.9% Normal Saline (50mL MB+) 50 ML IV ×4 (01:08→21:30)
[2023-12-31 01:16] LABS: Troponin-I HS 3067 pg/mL (3.0-54.0)
[2023-12-31 05:11] LABS: Absolute Lymphocyte Count 1.36 X10^3/uL (0.83-4.51); Absolute Neutrophil Count 24.6 X10^3/uL (2.0-7.7); Basophil# 0.03 X10^3/uL; Basophil% 0.1 % (0-1); Hemoglobin 13.2 g/dL (12.0-15.0); Lymphocyte # 1.36 X10^3/ul (0.83-4.51); Lymphocyte % 4.9 % (19-41); Mean Corp Hgb Conc 31.4 g/dL (32-36); Mean Corpuscular Hgb 29.4 pg (27.0-32.0); Mean Corpuscular Volume 93.5 fL (81-99); Mean Platelet Vol. 9.6 fl (6.2-12.0); Monocyte# 1.58 X10^3/uL; Monocyte% 5.7 % (0-10); NRBC Flagged by Analyzer 0 % (0-5); Neutrophil # 24.58 X10^3/uL (2.7-7.7); Neutrophil % 88.6 % (47-70); POSITIVE DIFFERENTIAL YES; Platelet Count 324 K/mm3 (150-450); RBC Distribution Width CV 13.1 % (11.6-14.6); RBC Distribution Width SD 44.9 fl (35.1-43.9); Red Blood Count 4.49 M/mm3 (4.2-5.4); White Blood Count 27.8 K/mm3 (4.4-11.0)
[2023-12-31 05:19] LABS: Differential Indicated SCAN CRITERIA MET
[2023-12-31 05:20] LABS: Bedside Glucose 264 mg/dL (74-106)
--- NOTE | 2023-12-31 05:40 | RAD_ITS ---
INDICATION: Dyspnea, cough EXAMINATION/TECHNIQUE: X-RAY - XR Chest 1 View COMPARISON: 09/16/2023 chest radiograph. Findings: Single frontal view of the chest. LUNG PARENCHYMA: Diffuse bilateral patchy airspace disease. PLEURA: No pleural effusion. No pneumothorax. HEART/GREAT VESSELS: Cardiomediastinal silhouette is unremarkable. BONES: Old bilateral lateral rib fracture deformities. RAD/Chest 1 View (Portable) IMPRESSION: Diffuse bilateral patchy airspace disease, to include pneumonia or pulmonary edema. Recommend follow-up to resolution. Electronically Signed: Mikal Gold MD at 6:20 EST ,
[2023-12-31 05:56] LABS: Differential Comment SCANNED; Platelet Estimate ADEQUATE (ADEQ)
[2023-12-31 05:57] LABS: Anisocytosis 1+; Ovalocyte 1+
[2023-12-31 06:10] LABS: ALB/GLOB Ratio 0.9 RATIO (0.9-2.4); AST(SGOT) 29 U/L (15-37); Alanine Aminotransfer ALT/SGPT 31 U/L (13-56); Albumin, Serum 3.1 g/dL (3.2-5.0); Alkaline Phosphatase 73 U/L (45-117); Anion Gap 8 (5-15); BUN 37 mg/dL (7-18); BUN/Creat Ratio 22.3 RATIO (10-20); Calcium,Total 7.9 mg/dL (8.5-10.1); Chloride 113 mmol/L (98-107); Cholesterol 161 mg/dL (200); Creatinine, Serum 1.66 mg/dL (0.55-1.02); EST Glomerular Filtration Rate 32 mL/min (>60); Est Glom Filt Rate - Afr Amer 39 mL/min (>60); Estimated Creatinine Clearance 23.05 ml/min; Globulin 3.6 g/dL (2.2-4.2); Glucose 305 mg/dL (74-106); High Density Lipoprotein 69 mg/dL; Magnesium 3.5 mg/dL (1.6-2.6); Protein, Total 6.7 g/dL (6.4-8.2); Sodium Level 140 mmol/L (136-145); Triglycerides 118 mg/dL; Very Low Density Lipoprotein 24 mg/dL (5-40)
[2023-12-31] MEDS: Insulin Lispro 100 UNIT/ML INSULN.PEN SC ×5 (06:11→23:25)
[2023-12-31] MEDS: Acetaminophen 325 MG Tablet 650 MG PO ×2 (06:11→13:40)
[2023-12-31] MEDS: Gabapentin 100 MG Capsule PO ×3 (06:11→21:29)
[2023-12-31] MEDS: Budesonide Respules 0.5 MG/2 ML AMPUL.NEB. INHALATION ×2 (06:55→19:10)
--- NOTE | 2023-12-31 08:24 | PN.HOSP_ITS ---
Reason for Visit Reason for Visit: Diagnoses Urinary tract infection, site not specified (12/30/23) Subjective Subjective Patient seen at bedside, reports she has not had any further stools, denies any abdominal pain, feels somewhat unwell overall but better than she did, not improving Objective Data Objective Data Vital Signs: Vital Signs Temp Pulse Resp BP Pulse Ox O2 Del Method O2 Flow Rate 100.7 F H 102 H 20 H 109/74 100 Bi-pap 6 12/31/23 06:00 12/31/23 08:11 12/31/23 08:11 12/31/23 07:00 12/31/23 08:11 12/31/23 07:00 12/30/23 21:30 FiO2 40 12/31/23 08:11 Oxygen Flow Rate (L/min) 6 Oxygen Delivery Method Bi-pap Weight: 46.3 kg Body Mass Index (BMI) 16.9 Intake & Output: Intake and Output for Last 24 Hours 12/29/23 12/30/23 12/31/23 23:59 23:59 23:59 Intake Total 1025.8 / 1025.8 940 / 940 Output Total 300 / 300 Balance 1025.8 / 1025.8 640 / 640 Lab / Micro Data 12/31/23 04:50 12/31/23 04:50 Labs: Laboratory Results - last 24 hr 12/30/23 18:40: WBC 19.4 H, RBC 5.00, Hgb 14.8, Hct 45.1, MCV 90.2, MCH 29.6, MCHC 32.8, RDW Std Deviation 41.9, RDW Coeff of Gerhard 12.9, Plt Count 412, MPV 10.0, Immature Gran % (Auto) 0.600, Neut % (Auto) 89.5 H, Lymph % (Auto) 6.0 L, Bureau % (Auto) 3.7, Eos % (Auto) 0.0, Baso % (Auto) 0.2, Absolute Neuts (auto) 17.3 H, Absolute Lymphs (auto) 1.17, Nucleated RBC % 0, PT 14.4, INR 1.1, APTT 26.1, Sodium 140, Potassium 3.8, Chloride 105, Carbon Dioxide 21.0, Anion Gap 14, BUN 41 H, Creatinine 1.96 H, Estim Creat Clear Calc 25.36, Est GFR (MDRD) Af Amer 32 L, Est GFR (MDRD) Non-Af 27 L, BUN/Creatinine Ratio 20.9 H, Glucose 405 H, Calcium 9.6, Total Bilirubin 0.70, AST 36, ALT 38, Alkaline Phosphatase 93, T roponin I High Sens 2872 H*, Total Protein 8.2, Albumin 4.1, Globulin 4.1, Albumin/Globulin Ratio 1.0, Lipase 20 12/30/23 19:00: Lactic Acid 3.2 H* 12/30/23 19:02: B-Natriuretic Peptide 3619.4 H, Blood Type O POSITIVE, Antibody Screen NEGATIVE 12/30/23 21:10: Urine Color Yellow, Urine Clarity Turbid, Urine pH 5.0, Ur Specific [place] 1.025, Urine Protein 100 H, Urine Glucose (UA) 50 H, Urine Ketones Negative, Urine Occult Blood 25 H, Urine Nitrite Negative, Urine Bilirubin 1 H, Urine Urobilinogen Normal, Ur Leukocyte Esterase 500 H, Urine RBC 5-10 SEEN, Urine WBC 50-100 SEEN, Ur Squamous Epith Cells 0-5 SEEN, Ur Renal Epithelial Cell 0-5 SEEN, Urine Bacteria 4+, Hyaline Casts 0-5 SEEN, Urine Mucus 0 SEEN 12/30/23 21:20: Magnesium 1.3 L, Troponin I High Sens 2585 H* 12/30/23 23:30: Hgb 13.5, Hct 43.4, Lactic Acid 3.2 H* 12/30/23 23:56: POC Glucose 300 H 12/31/23 00:30: Troponin I High Sens 3067 H* 12/31/23 04:50: WBC 27.8 H, RBC 4.49, Hgb 13.2, Hct 42.0, MCV 93.5, MCH 29.4, M CHC 31.4 L, RDW Std Deviation 44.9 H, RDW Coeff of Gerhard 13.1, Plt Count 324, MPV 9.6, Immature Gran % (Auto) 0.700, Neut % (Auto) 88.6 H, Lymph % (Auto) 4.9 L, Bureau % (Auto) 5.7, Eos % (Auto) 0.0, Baso % (Auto) 0.1, Absolute Neuts (auto) 24.6 H, Absolute Lymphs (auto) 1.36, Nucleated RBC % 0, Differential Comment SCANNED, Diff Path Review May foll, Platelet Estimate ADEQUATE, Anisocytosis 1+, Ovalocytes 1+, Sodium 140, Potassium 4.0, Chloride 113 H, Carbon Dioxide 20.0 L, Anion Gap 8, BUN 37 H, Creatinine 1.66 H, Estim Creat Clear Calc 23.05, Est GFR (MDRD) Af Amer 39 L, Est GFR (MDRD) Non-Af 32 L, BUN/Creatinine Ratio 22.3 H, G lucose 305 H, Calcium 7.9 L, Magnesium 3.5 H, Total Bilirubin 0.40, AST 29, ALT 31, Alkaline Phosphatase 73, Total Protein 6.7, Albumin 3.1 L, Globulin 3.6, Albumin/Globulin Ratio 0.9, Triglycerides 118, Cholesterol 161, LDL Cholesterol 68, VLDL Cholesterol 24, HDL Cholesterol 69, TSH 2.700 12/31/23 05:01: POC Glucose 264 H Micro: Microbiology 12/30/23 21:10 Urine Catheter - Catheter Legionella Antigen - Final 12/30/23 23:42 Nasal Secretion MRSA (PCR) - Final 12/31/23 00:00 Mucosa - Nasopharyngeal Respiratory Panel (PCR) - Final 12/30/23 20:00 Mucosa - Nose SARS-CoV-2, Influenza & RSV (PCR) - Final 12/30/23 18:50 Stool Stool Occult Blood (EARLE) - Final Occult Blood Positive Radiography Diagnostic Testing: Radiology Impression Chest/Abdomen/Pelvis CTA 12/30/23 18:52 IMPRESSION: Diffuse interlobular septal thickening consistent with pulmonary edema. Subtle focal hazy perihilar central right upper lobe groundglass airspace disease, likely associated pulmonary edema although other infectious etiology or even neoplastic process is not excluded. Trace bilateral pleural effusions with adjacent atelectasis. Recommend follow-up to resolution. Distal pulmonary artery branch vessel evaluation is suboptimal secondary to timing of contrast bolus as well as respiratory motion, however, there is no obvious large proximal pulmonary embolus. 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 2 cm hypoattenuating left anterior splenic lesion increased in size from previous year 1.2 cm. Recommend follow-up evaluation as neoplastic process is not excluded. New posterior left apical 13 mm nodule. Recommend comparison with previous imaging to document long-term stability versus follow-up evaluation as per Fleischner guidelines as neoplastic process is not excluded. No acute abdominal abnormality is identified. Electronically Signed: Mikal Gold MD at 21:59 EST , Chest X-Ray 12/31/23 05:40 IMPRESSION: Diffuse bilateral patchy airspace disease, to include pneumonia or pulmonary edema. Recommend follow-up to resolution. Electronically Signed: Mikal Gold MD at 6:20 EST , Physical Exam Narrative General: Alert, no apparent distress HEENT: Atraumatic, normocephalic Eyes: Anicteric, normal conjunctiva, extraocular movements grossly intact Neck: Supple Respiratory: Diminished at the bases, slight increased work of breathing Cardiovascular: Low-grade sinus tachycardia GI: Soft, nontender, nondistended, no rebound, guarding, rigidity Extremities: No significant pitting edema Musculoskeletal: Moving all extremities Neuro: No overt focal neurological deficits Skin: No rashes appreciated Psych: Cooperative Assessment & Plan Assessment/Plan (1) Febrile: PLAN: Plan #Nausea/Emesis/Diarrhea/Melena -Started roughly 3 days prior to admission -Patient with hemoglobin of 14.8 on presentation, 13.2 today -Did have FOBT which was positive in the ED -On PPI drip -GI was consulted -Patient is n.p.o. -Stool studies ordered but not yet collected # Suspected sepsis -Patient with leukocytosis up to 27.8, patient febrile with temperatures up to 101 has been tachycardic, initially heart rate 127 with respiratory rate that increased to the 30s lactic acid of 3.2 and several systolic blood pressures less than 90. Additionally patient with DURAN on presentation with a baseline creatinine around 1 and it was 1.96 on arrival also acute encephalopathy on admission which was noted by admitting physician -UA with negative nitrite, 500 leuk esterase with 50-100 white blood cells and 4+ bacteria and preliminarily growing E. coli -CT chest and chest x-ray with pulmonary edema versus infectious process -Urine antigens negative -Viral respiratory panel and COVID-negative -Urine and blood cultures pending -Patient on broad-spectrum antibiotics with Zosyn -Stool studies ordered but not yet collected # Acute hypoxia secondary to flash pulmonary edema secondary to acute exacerbation of heart failure with reduced ejection fraction secondary to Takotsubo cardiomyopathy after IV fluids for sepsis -Patient initially 98% on room air and then desaturated to 80%, improved initially on 6 L however desaturated down to 89% despite 6 L and was started on BiPAP -Admit to intensive care unit, sales commissions analyst consult -Patient on BiPAP with improving saturations, developed the significant respiratory distress after fluid resuscitation for her suspected sepsis -BNP 3619 -CXR pulmonary edema versus infectious process -Patient initially not started on IV Lasix given her sepsis, also not given full sepsis fluids due to her low EF and flash pulmonary edema, -Last echo 09/17/2023 with EF of 20% and severe segmental systolic dysfunction, reportedly consistent with Takotsubo -Repeat echo was ordered -Daily weights, I's and O's #Elevated troponin -Troponin 2800, initially down trended to 2500 and is back up to 3000 -Suspect that this is secondary to either fluid overload or sepsis or combination of both -Patient with repeat echo pending -Not presently on heparin drip given no chest pain but does have significant elevation in her troponins and BNP -Given this and patient's very complex presentation and history cardiology consult placed on admission #Type 2 diabetes mellitus -Glucose checks and sliding scale insulin -Hold home glipizide # Suspect DURAN -Creatinine on arrival 1.96 with a baseline closer to 1 -Repeat this a.m. 1.66 -And CTA chest abdomen pelvis patient did have a near complete obstructing right renal artery lesion just beyond the origin which was reported to be stable #GERD -Patient has not been taking her PPI, presently on PPI drip #Hypertension -Patient has not been taking her carvedilol as she has been out, hold lisinopril given patient's sepsis and DURAN #Depression/anxiety -Continue home medications # Abnormal CT imaging of chest and abdomen -Right upper lobe groundglass airspace disease likely pulmonary edema cannot exclude infectious etiology or neoplastic process and recommended follow-up to resolution recommended -Ultimately need further imaging -Additionally new posterior left apical 13 mm nodule which will need compared to previous imaging to document long-term stability versus follow-up evaluation per Fleischner guidelines -Patient also had 2 cm hypoattenuating left anterior splenic lesion which increased from 1.2 cm to previous year and is also recommended that this have repeat follow-up evaluation #DVT ppx: SCDs Zahra Palacio MD Time spent in the patient's overall evaluation, decision-making process, review of diagnostic data, adjustment of management, discussion with other providers, nursing and ancillary staff involved in patient's care documentation, 55 Minutes Charges/Coding Visit Charges Inpatient E&M: 38001 Subs Hosp L3
[2023-12-31 08:27] LABS: Hemoglobin A1c 5.5 % (3.8-5.6)
[2023-12-31] MEDS: Fluoxetine HCl 40 MG CAPSULE PO ×2 (09:39→21:29)
[2023-12-31] MEDS: Pantoprazole Sodium 80 MG in 0.9% Normal Saline (100mL Bag) 80 ML 10 MG CONT INF ×2 (09:39)
[2023-12-31] MEDS: busPIRone 15 MG TABLET PO ×2 (09:40→21:29)
[2023-12-31] MEDS: Atorvastatin Calcium 20 MG Tablet PO (09:40)
[2023-12-31] MEDS: Ondansetron 4 MG/2 ML Vial IV ×2 (09:51→22:53)
[2023-12-31] MEDS: 0.9% Saline Lock 10 ML Syringe IV ×2 (09:51→23:21)
--- NOTE | 2023-12-31 11:03 | PN.CC_ITS ---
Assessment & Plan Assessment/Plan (1) CHF exacerbation: PLAN: Plan RECOMMENDATIONS: 1. Okay to wean patient from BiPAP therapy to nasal cannula as tolerated. 2. Continue empiric antibiotics. 3. Continue PPI therapy twice daily. 4. Awaiting follow-up echocardiogram. 5. Cardiology and gastroenterology consultations are pending. 6. Encourage incentive spirometer use and mobilize patient as tolerated. IMPRESSIONS: 1. Acute hypoxemic respiratory failure Suspect related to flash pulmonary edema in the setting of fluid resuscitative efforts. The patient has known underlying cardiac disease with depressed ejection fraction. Repeat echocardiogram is currently pending. The patient did stabilize from a respiratory perspective with noninvasive positive pressure ventilatory support. Recommend conservative use of IV fluids in this patient. Okay from my perspective to wean from PAP therapy to nasal cannula oxygen as tolerated. Goal to maintain oxygen saturations at or above 90%. 2. NSTEMI/acute decompensated heart failure The patient has a known history of Takotsubo cardiomyopathy. She presented with an elevated BNP and troponin, concerning for demand ischemia and radiographic evidence of bilateral infiltrates concerning for pulmonary edema. Clinical concern is for acute decompensated heart failure. However, underlying pneumonia is another possibility. Nevertheless, the patient denies any sputum production. Currently, follow-up echocardiogram is pending along with consultation to cardiology. Continue current medical management. Avoid additional IV fluids for now. 3. Melanotic stools The patient presented with melanotic stools and was noted to be positive for occult blood. Nevertheless, her hemoglobin has remained stable. Gastroenterology consultation is pending. Continue PPI therapy for now. 4. E. coli UTI Continue antimicrobials as ordered, pending finalized cultures and sensitivities. 5. Acute kidney injury Most likely prerenal in etiology. Continue to monitor urine output for now. Avoid nephrotoxic medications. No current indication for renal replacement therapy. 6. History of hypertension/hyperlipidemia/paroxysmal atrial fibrillation/diabetes mellitus/obstructive sleep apnea Complicates care, management, recovery and prognosis. Continue PAP therapy throughout the day as needed along with nightly. TIME: 34 minutes of critical care time, independent of procedures, was spent addressing the patient's acute hypoxemic respiratory failure, NSTEMI, acute decompensated heart failure, E. coli UTI, acute kidney injury, review of all data and collaboration with the care team. Subjective Subjective The patient was seen and examined at the bedside this morning. Events from the last 24 hours have been reviewed. The patient currently has a low-grade fever but remains otherwise hemodynamically stable on 2 L/min via nasal cannula. She was maintained on BiPAP therapy up until this morning, when she was transition to nasal cannula oxygen. The patient is currently documented to be overall net +1.8 L for the hospitalization. She has no specific complaints this morning. White count is elevated at 27,000. Coagulation profile was within normal limits. Chemistry profile revealed a creatinine of 1.6, improved from 1.96 yesterday. Troponin is elevated at 3067. Chest x-ray from this morning continues to demonstrate bilateral airspace disease. Objective Data Objective Data The patient's most recent lab work, culture data and imaging studies have all been personally reviewed. Surface echocardiogram demonstrated severe segmental systolic dysfunction with an ejection fraction of 20%. Respiratory viral panel was negative. MRSA screen was negative. Strep and urine Legionella antigens were negative. COVID, influenza and RSV PCR's were negative. Blood and urine cultures are pending. Stool for occult blood was positive. Vital Signs: Vital Signs Temp Pulse Resp BP Pulse Ox O2 Del Method O2 Flow Rate 100.7 F H 109 H 18 121/78 H 96 Nasal Cannula 2 12/31/23 10:00 12/31/23 10:00 12/31/23 10:00 12/31/23 10:00 12/31/23 10:00 12/31/23 10:00 12/31/23 10:00 FiO2 40 12/31/23 08:11 Oxygen Flow Rate (L/min) 2 Oxygen Delivery Method Nasal Cannula Weight: 103 lb 9.876 oz Body Mass Index (BMI) 17.2 Intake & Output: Intake and Output for Last 24 Hours 12/29/23 12/30/23 12/31/23 23:59 23:59 23:59 Intake Total 1025.8 / 1025.8 1086.5 / 1086.5 Output Total 300 / 300 Balance 1025.8 / 1025.8 786.5 / 786.5 Lab / Micro Data Attestation: I reviewed the patient's lab results. 12/31/23 04:50 12/31/23 04:50 Labs: Laboratory Results - last 24 hr 12/30/23 18:40: WBC 19.4 H, RBC 5.00, Hgb 14.8, Hct 45.1, MCV 90.2, MCH 29.6, MCHC 32.8, RDW Std Deviation 41.9, RDW Coeff of Gerhard 12.9, Plt Count 412, MPV 10.0, Immature Gran % (Auto) 0.600, Neut % (Auto) 89.5 H, Lymph % (Auto) 6.0 L, [place] % (Auto) 3.7, Eos % (Auto) 0.0, Baso % (Auto) 0.2, Absolute Neuts (auto) 17.3 H, Absolute Lymphs (auto) 1.17, Nucleated RBC % 0, PT 14.4, INR 1.1, APTT 26.1, Sodium 140, Potassium 3.8, Chloride 105, Carbon Dioxide 21.0, Anion Gap 14, BUN 41 H, Creatinine 1.96 H, Estim Creat Clear Calc 25.36, Est GFR (MDRD) Af Amer 32 L, Est GFR (MDRD) Non-Af 27 L, BUN/Creatinine Ratio 20.9 H, Glucose 405 H, Calcium 9.6, Total Bilirubin 0.70, AST 36, ALT 38, Alkaline Phosphatase 93, T roponin I High Sens 2872 H*, Total Protein 8.2, Albumin 4.1, Globulin 4.1, Albumin/Globulin Ratio 1.0, Lipase 20 12/30/23 19:00: Lactic Acid 3.2 H* 12/30/23 19:02: B-Natriuretic Peptide 3619.4 H, Blood Type O POSITIVE, Antibody Screen NEGATIVE 12/30/23 21:10: Urine Color Yellow, Urine Clarity Turbid, Urine pH 5.0, Ur Specific [place] 1.025, Urine Protein 100 H, Urine Glucose (UA) 50 H, Urine Ketones Negative, Urine Occult Blood 25 H, Urine Nitrite Negative, Urine Bilirubin 1 H, Urine Urobilinogen Normal, Ur Leukocyte Esterase 500 H, Urine RBC 5-10 SEEN, Urine WBC 50-100 SEEN, Ur Squamous Epith Cells 0-5 SEEN, Ur Renal Epithelial Cell 0-5 SEEN, Urine Bacteria 4+, Hyaline Casts 0-5 SEEN, Urine Mucus 0 SEEN 12/30/23 21:20: Magnesium 1.3 L, Troponin I High Sens 2585 H* 12/30/23 23:30: Hgb 13.5, Hct 43.4, Lactic Acid 3.2 H* 12/30/23 23:56: POC Glucose 300 H 11/18/24 00:30: Troponin I High Sens 3067 H* 12/31/23 04:50: WBC 27.8 H, RBC 4.49, Hgb 13.2, Hct 42.0, MCV 93.5, MCH 29.4, M CHC 31.4 L, RDW Std Deviation 44.9 H, RDW Coeff of Gerhard 13.1, Plt Count 324, MPV 9.6, Immature Gran % (Auto) 0.700, Neut % (Auto) 88.6 H, Lymph % (Auto) 4.9 L, [place] % (Auto) 5.7, Eos % (Auto) 0.0, Baso % (Auto) 0.1, Absolute Neuts (auto) 24.6 H, Absolute Lymphs (auto) 1.36, Nucleated RBC % 0, Differential Comment SCANNED, Diff Path Review June, Platelet Estimate ADEQUATE, Anisocytosis 1+, Ovalocytes 1+, Sodium 140, Potassium 4.0, Chloride 113 H, Carbon Dioxide 20.0 L, Anion Gap 8, BUN 37 H, Creatinine 1.66 H, Estim Creat Clear Calc 23.05, Est GFR (MDRD) Af Amer 39 L, Est GFR (MDRD) Non-Af 32 L, BUN/Creatinine Ratio 22.3 H, G lucose 305 H, Hemoglobin A1c 5.5, Calcium 7.9 L, Magnesium 3.5 H, Total Bilirubin 0.40, AST 29, ALT 31, Alkaline Phosphatase 73, Total Protein 6.7, A lbumin 3.1 L, Globulin 3.6, Albumin/Globulin Ratio 0.9, Triglycerides 118, Cholesterol 161, LDL Cholesterol 68, VLDL Cholesterol 24, HDL Cholesterol 69, TSH 2.700 12/31/23 05:01: POC Glucose 264 H Micro: Microbiology 12/30/23 21:10 Urine Catheter - Catheter Legionella Antigen - Final 12/30/23 23:42 Nasal Secretion MRSA (PCR) - Final 12/31/23 00:00 Mucosa - Nasopharyngeal Respiratory Panel (PCR) - Final 12/30/23 20:00 Mucosa - Nose SARS-CoV-2, Influenza & RSV (PCR) - Final 12/30/23 18:50 Stool Stool Occult Blood (EARLE) - Final Occult Blood Positive Radiography Diagnostic Testing: Radiology Impression Chest/Abdomen/Pelvis CTA 12/30/23 18:52 IMPRESSION: Diffuse interlobular septal thickening consistent with pulmonary edema. Subtle focal hazy perihilar central right upper lobe groundglass airspace disease, likely associated pulmonary edema although other infectious etiology or even neoplastic process is not excluded. Trace bilateral pleural effusions with adjacent atelectasis. Recommend follow-up to resolution. Distal pulmonary artery branch vessel evaluation is suboptimal secondary to timing of contrast bolus as well as respiratory motion, however, there is no obvious large proximal pulmonary embolus. 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 2 cm hypoattenuating left anterior splenic lesion increased in size from previous year 1.2 cm. Recommend follow-up evaluation as neoplastic process is not excluded. New posterior left apical 13 mm nodule. Recommend comparison with previous imaging to document long-term stability versus follow-up evaluation as per Fleischner guidelines as neoplastic process is not excluded. No acute abdominal abnormality is identified. Electronically Signed: Mikal Gold MD at 21:59 EST , Echocardiogram 12/30/23 23:20 Interpretation Summary The left ventricular ejection fraction is 20 %. Normal LV size. Severe segmental systolic dysfunction (see wall motion). Contrast injection was performed. Ordering Physician: Kanwal Aguilar Performed By: Gladys Fenton RDCS and Student Chest X-Ray 12/31/23 05:40 IMPRESSION: Diffuse bilateral patchy airspace disease, to include pneumonia or pulmonary edema. Recommend follow-up to resolution. Electronically Signed: Mikal Gold MD at 6:20 EST , Physical Exam Const alert and no apparent distress General Appearance: cooperative HEENT normocephalic and head/scalp atraumatic Eyes PERRL, EOMs intact bilaterally and conjunctivae normal Neck supple General: trachea midline Chest inspection of chest normal Resp normal respiratory effort Auscultation: diminished lung sounds; Negative for rales, rhonchi or wheezes Cardio S1 normal heart sound and S2 normal heart sound Rate: tachycardic GI normal to inspection, nondistended, normoactive bowel sounds Extremity no clubbing, cyanosis or edema Skin no rashes or lesions noted Neuro CN's II-XII intact bilaterally, moves all extremities and no focal motor deficits Psych cooperative and affect normal Charges/Coding Procedures Hospitalists Procedures: 01548 Critical Care 1st Hr
--- NOTE | 2023-12-31 11:40 | CASEMGMT ---
HAMILTON COSTA Assessment: Face to Face with pt for initial transition planning/care coordination assessment. HAMILTON COSTA introduced self and role at [facility], pt voices understanding and consents to assessment. Pt is A&O x4 and answers all questions appropriately at this time. Pt lying in bed in no distress. Care providers, pharmacy, and demographics verified/updated. Strata: 3 Admitting Dx: Resp Failure, PNA, CHF exacerbation, GI bleed, NSTEMI PCP: Merlin Specialists: Denies Preferred Pharmacy: [facility] Insurance: [employer] [facility] Dual Advantage Prescription Benefit: yes LNOK: Daughter, Pam; , Eduardo Living Arrangements: Pt lives with and son in a mobile home with a ramp to enter. ADLs: pt reports needs assistance with ADLs and IADLs. Transportation: Pt provides transportation. DME: Ramp, WC, Walker, Shower bench. HHC/SNF: Previously at [facility], [facility]. Previously used [facility]. Pt states does not use O2 at home, HAMILTON COSTA provided verbal list of O2 providers, if needs oxygen at time of DC pt chose [facility]. Pt states no concerns with going home at time of dc. Pt states no further concerns/needs. CM to follow. Advised pt to ask CM if any further question/concerns/needs arise, voices understanding. Pt Goal: TBD Plan: TBD, follow therapy for recommendations. Tom VILLASENOR CM
[2023-12-31 12:01] LABS: Bedside Glucose 244 mg/dL (74-106)
--- NOTE | 2023-12-31 12:32 | CASEMGMT ---
HAMILTON COSTA Assessment: Face to Face with pt for initial transition planning/care coordination assessment. HAMILTON COSTA introduced self and role at [facility], pt voices understanding and consents to assessment. Pt is A&O x4 and answers all questions appropriately at this time. Pt lying in bed in no distress. Care providers, pharmacy, and demographics verified/updated. Strata: 3 Admitting Dx: Resp Failure, PNA, CHF exacerbation, GI bleed, NSTEMI PCP: Merlin Specialists: Denies [facility] Prescription Benefit: yes LNOK: Daughter, Pam; , Eduardo Living Arrangements: Pt lives with and son in a mobile home with a ramp to enter. ADLs: pt reports needs assistance with ADLs and IADLs. Transportation: Pt drives self and denies concerns with transportation. DME: Ramp, WC, Walker, Shower bench. HHC/SNF: Previously at [facility], [facility]. Previously used [facility]. Pt states does not use O2 at home, HAMILTON COSTA provided verbal list of O2 providers, if needs oxygen at time of DC pt chose [facility]. Pt states no concerns with going home at time of dc. Pt states no further concerns/needs. CM to follow. Advised pt to ask CM if any further question/concerns/needs arise, voices understanding. Pt Goal: TBD Plan: TBD, follow therapy for recommendations. Tom VILLASENOR CM
--- NOTE | 2023-12-31 15:10 | CON.PCM.CA_ITS ---
Assessment & Plan Assessment/Plan (1) Elevated troponin: PLAN: Appears to be secondary to type II AL. Patient does have obstructive CAD and a small diameter vessel which, in the setting of underlying medical issues that she is having, can explain the degree of troponin elevation. No specific therapy required for this at this time. (2) CHF exacerbation: QUALIFIERS: Heart failure type: systolic Qualified Code(s): I 50.23 - Acute on chronic systolic (congestive) heart failure PLAN: Patient appears to have gone into decompensated CHF during fluid resuscitation. She has nonischemic/Takotsubo cardiomyopathy. Appears to be compensated at this time. Probably reasonable to restart her home carvedilol at this time. Once her renal function comes back to baseline, if her blood pressure allows, lisinopril can be started possibly at a lower dose if her blood pressure is on the low side. HPI Consult Data Date of Consult: 12/31/23 HPI Narrative Reason for Consultation: Elevated troponin HPI Narrative: LUBA MARSH, is a 68 F who presents with nausea, vomiting, diarrhea. Patient also gives history of melanotic stools. Patient has history of Takotsubo cardiomyopathy diagnosed in September of this year. She had coronary angiogram at that time which revealed stenosis in the AV groove circumflex which is a small diameter vessel. Her obtuse marginal which is a much larger branch has no significant stenoses. Her LAD and RCA did not have significant obstructive CAD as well. Upon presentation, patient was found to have high-sensitivity troponin of around 2500 which went to around 3000. Her lactic acid was elevated and so was her creatinine. She also had a fever and elevated white count. It was felt that patient was not prerenal azotemia and was started on IV fluid resuscitation. She started having respiratory distress and was found to be in possible pulmonary edema. She seems to have recovered from this and is not having any shortness of breath. Her creatinine has come down from the value at presentation. Her 2D echo revealed severe LV systolic dysfunction which is not different from what she had in September of this year. Patient's diarrhea, nausea and vomiting have all improved. [facility] Medical History Non-ST elevation [place] (NSTEMI) Hiatal hernia Irritable bowel Back pain due to injury Restless legs Injury of head and neck High cholesterol Hearing loss, right Bipolar disorder Depression Anxiety GERD (gastroesophageal reflux disease) Former smoker Sleep apnea Atrial fibrillation Migraines Dementia Closed intertrochanteric fracture of left hip Psoriatic arthritis Nonobstructive atherosclerosis of coronary artery Obesity Type 2 diabetes mellitus Takotsubo syndrome Hyperlipidemia Essential (primary) hypertension NSTEMI (non-ST elevated myocardial infarction) (01/06/18) Home Medications ?Medication ?Instructions ?Recorded ?Last Taken ?Type alendronate 70 mg tablet 70 mg PO SA osteoporosis 01/06/18 Unknown History buspirone 7.5 mg tablet 15 mg PO BID anxiety 01/06/18 Unknown History fluoxetine 40 mg capsule 40 mg PO BID anxiety 01/06/18 Unknown History glipizide 5 mg tablet 10 mg PO DAILY antidiabetic 01/06/18 Unknown History ergocalciferol (vitamin D2) 1,250 50,000 unit PO .COMPLEX supplement 02/12/19 Unknown History mcg (50,000 unit) capsule lisinopril 20 mg tablet 20 mg PO DAILY #30 tabs 02/15/19 Unknown Rx gabapentin 100 mg capsule 100 mg PO Q8H pain 04/14/23 Unknown History meloxicam 7.5 mg tablet 7.5 mg PO DAILY pain 04/14/23 Unknown History ondansetron 4 mg disintegrating 4 mg PO TID PRN nausea and 04/14/23 Unknown Rx tablet vomiting #21 tabs oxybutynin chloride 10 mg 20 mg PO DAILY bladder 04/14/23 Unknown History tablet,extended release 24 hr simvastatin 40 mg tablet 40 mg PO DAILY cholesterol 04/14/23 Unknown History turmeric 1 cap PO DAILY supplement 04/14/23 Unknown History aspirin 81 mg tablet,delayed 81 mg PO BREAKFAST 30 days #30 tabs 09/20/23 Unknown Rx release pantoprazole 40 mg tablet,delayed 40 mg PO BID #60 tabs 09/20/23 Unknown Rx release (Protonix) carvedilol 6.25 mg tablet 6.25 mg PO BID Awaiting mail in 10/18/23 Unknown Rx RX, pt is out of med #60 tabs methocarbamol 500 mg tablet 1,000 mg PO BID 12/30/23 Unknown History Allergy/AdvReac Type Severity Reaction Status Date / Time morphine Allergy Mild confusion Verified 12/30/23 18:09 codeine Allergy Itching Verified 12/30/23 18:09 fentanyl AdvReac confusion Verified 12/30/23 18:09 naproxen AdvReac Other Verified 12/30/23 18:09 Family History Mother Cancer skin Father Cancer prostate Surgical History History of back surgery History of carpal tunnel release of both wrists History of hysterectomy History of left heart catheterization (01/07/18) Social History (Updated 12/30/23 @ 23:[address] Kanwal Aguilar MD) household members: spouse Smoking Status: Former smoker how long ago did patient quit smokin years ago alcohol intake: never substance use type: does not use caffeine: Yes Type: carbonated beverages Number of servings: 1 Physical Exam Const alert and oriented x3 HEENT normocephalic Resp Resp Narrative: Left basal crackles Cardio regular rate Extremity no pedal edema Risk Stratification Risk Stratification Applicable: No Charges/Coding Visit Charges Inpatient E&M: 58414 Init Hosp L2 Objective Data Vital Signs: Vital Signs Temp Pulse Resp BP Pulse Ox O2 Del Method O2 Flow Rate 100.0 F H 110 H 16 106/73 97 Nasal Cannula 2 12/31/23 14:00 12/31/23 14:00 12/31/23 14:00 12/31/23 14:00 12/31/23 14:00 12/31/23 14:00 12/31/23 14:00 FiO2 40 12/31/23 08:11 Oxygen Flow Rate (L/min) 2 Oxygen Delivery Method Nasal Cannula Weight: 103 lb 9.876 oz Body Mass Index (BMI) 17.2 Intake & Output: Intake and Output for Last 24 Hours 12/29/23 12/30/23 12/31/23 23:59 23:59 23:59 Intake Total 1025.8 / 1025.8 1261.33 / 1261.33 Output Total 500 / 500 Balance 1025.8 / 1025.8 761.33 / 761.33 Lab / Micro Data 12/31/23 04:50 12/31/23 04:50 Labs: Laboratory Results - last 24 hr 12/30/23 18:40: WBC 19.4 H, RBC 5.00, Hgb 14.8, Hct 45.1, MCV 90.2, MCH 29.6, MCHC 32.8, RDW Std Deviation 41.9, RDW Coeff of Gerhard 12.9, Plt Count 412, MPV 10.0, Immature Gran % (Auto) 0.600, Neut % (Auto) 89.5 H, Lymph % (Auto) 6.0 L, [place] % (Auto) 3.7, Eos % (Auto) 0.0, Baso % (Auto) 0.2, Absolute Neuts (auto) 17.3 H, Absolute Lymphs (auto) 1.17, Nucleated RBC % 0, PT 14.4, INR 1.1, APTT 26.1, Sodium 140, Potassium 3.8, Chloride 105, Carbon Dioxide 21.0, Anion Gap 14, BUN 41 H, Creatinine 1.96 H, Estim Creat Clear Calc 25.36, Est GFR (MDRD) Af Amer 32 L, Est GFR (MDRD) Non-Af 27 L, BUN/Creatinine Ratio 20.9 H, Glucose 405 H, Calcium 9.6, Total Bilirubin 0.70, AST 36, ALT 38, Alkaline Phosphatase 93, T roponin I High Sens 2872 H*, Total Protein 8.2, Albumin 4.1, Globulin 4.1, Albumin/Globulin Ratio 1.0, Lipase 20 12/30/23 19:00: Lactic Acid 3.2 H* 12/30/23 19:02: B-Natriuretic Peptide 3619.4 H, Blood Type O POSITIVE, Antibody Screen NEGATIVE 12/30/23 21:10: Urine Color Yellow, Urine Clarity Turbid, Urine pH 5.0, Ur Specific [place] 1.025, Urine Protein 100 H, Urine Glucose (UA) 50 H, Urine Ketones Negative, Urine Occult Blood 25 H, Urine Nitrite Negative, Urine Bilirubin 1 H, Urine Urobilinogen Normal, Ur Leukocyte Esterase 500 H, Urine RBC 5-10 SEEN, Urine WBC 50-100 SEEN, Ur Squamous Epith Cells 0-5 SEEN, Ur Renal Epithelial Cell 0-5 SEEN, Urine Bacteria 4+, Hyaline Casts 0-5 SEEN, Urine Mucus 0 SEEN 12/30/23 21:20: Magnesium 1.3 L, Troponin I High Sens 2585 H* 12/30/23 23:30: Hgb 13.5, Hct 43.4, Lactic Acid 3.2 H* 12/30/23 23:56: POC Glucose 300 H 12/31/23 00:30: Troponin I High Sens 3067 H* 12/31/23 04:50: WBC 27.8 H, RBC 4.49, Hgb 13.2, Hct 42.0, MCV 93.5, MCH 29.4, M CHC 31.4 L, RDW Std Deviation 44.9 H, RDW Coeff of Gerhard 13.1, Plt Count 324, MPV 9.6, Immature Gran % (Auto) 0.700, Neut % (Auto) 88.6 H, Lymph % (Auto) 4.9 L, [place] % (Auto) 5.7, Eos % (Auto) 0.0, Baso % (Auto) 0.1, Absolute Neuts (auto) 24.6 H, Absolute Lymphs (auto) 1.36, Nucleated RBC % 0, Differential Comment SCANNED, Diff Path Review June, Platelet Estimate ADEQUATE, Anisocytosis 1+, Ovalocytes 1+, Sodium 140, Potassium 4.0, Chloride 113 H, Carbon Dioxide 20.0 L, Anion Gap 8, BUN 37 H, Creatinine 1.66 H, Estim Creat Clear Calc 23.05, Est GFR (MDRD) Af Amer 39 L, Est GFR (MDRD) Non-Af 32 L, BUN/Creatinine Ratio 22.3 H, G lucose 305 H, Hemoglobin A1c 5.5, Calcium 7.9 L, Magnesium 3.5 H, Total Bilirubin 0.40, AST 29, ALT 31, Alkaline Phosphatase 73, Total Protein 6.7, A lbumin 3.1 L, Globulin 3.6, Albumin/Globulin Ratio 0.9, Triglycerides 118, Cholesterol 161, LDL Cholesterol 68, VLDL Cholesterol 24, HDL Cholesterol 69, TSH 2.700 12/31/23 05:01: POC Glucose 264 H 12/31/23 11:37: POC Glucose 244 H Micro: Microbiology 12/30/23 21:10 Urine, Clean Catch Urine Culture - Preliminary Presumptive E. coli 12/30/23 21:10 Urine Catheter - Catheter Legionella Antigen - Final 12/30/23 23:42 Nasal Secretion MRSA (PCR) - Final 12/31/23 00:00 Mucosa - Nasopharyngeal Respiratory Panel (PCR) - Final 12/30/23 20:00 Mucosa - Nose SARS-CoV-2, Influenza & RSV (PCR) - Final 12/30/23 18:50 Stool Stool Occult Blood (EARLE) - Final Occult Blood Positive Cardiology Labs/Tests 12/30/23 18:40: WBC 19.4 H, RBC 5.00, Hgb 14.8, Hct 45.1, MCV 90.2, MCH 29.6, MCHC 32.8, Plt Count 412, MPV 10.0, Immature Gran % (Auto) 0.600, Neut % (Auto) 89.5 H, Lymph % (Auto) 6.0 L, [place] % (Auto) 3.7, Eos % (Auto) 0.0, Baso % (Auto) 0.2, Absolute Neuts (auto) 17.3 H, Nucleated RBC % 0, PT 14.4, INR 1.1, APTT 26.1, Sodium 140, Potassium 3.8, Chloride 105, Carbon Dioxide 21.0, Anion Gap 14, BUN 41 H, Creatinine 1.96 H, Est GFR (MDRD) Af Amer 32 L, Est GFR (MDRD) Non-Af 27 L, BUN/Creatinine Ratio 20.9 H, Glucose 405 H, Calcium 9.6, Total Bilirubin 0.70 12/30/23 19:00: Lactic Acid 3.2 H* 12/30/23 19:02: B-Natriuretic Peptide 3619.4 H 12/30/23 21:10: Urine Color Yellow, Urine Clarity Turbid, Urine pH 5.0, Ur Specific [place] 1.025, Urine Protein 100 H, Urine Glucose (UA) 50 H, Urine Ketones Negative, Urine Occult Blood 25 H, Urine Nitrite Negative, Urine Bilirubin 1 H, Urine Urobilinogen Normal, Ur Leukocyte Esterase 500 H, Urine RBC 5-10 SEEN, Urine WBC 50-100 SEEN 12/30/23 21:20: Magnesium 1.3 L 12/30/23 23:30: Hgb 13.5, Hct 43.4, Lactic Acid 3.2 H* 12/31/23 04:50: WBC 27.8 H, RBC 4.49, Hgb 13.2, Hct 42.0, MCV 93.5, MCH 29.4, M CHC 31.4 L, Plt Count 324, MPV 9.6, Immature Gran % (Auto) 0.700, Neut % (Auto) 88.6 H, Lymph % (Auto) 4.9 L, [place] % (Auto) 5.7, Eos % (Auto) 0.0, Baso % (Auto) 0.1, Absolute Neuts (auto) 24.6 H, Nucleated RBC % 0, Sodium 140, Potassium 4.0, Chloride 113 H, Carbon Dioxide 20.0 L, Anion Gap 8, BUN 37 H, Creatinine 1.66 H, Est GFR (MDRD) Af Amer 39 L, Est GFR (MDRD) Non-Af 32 L, BUN/Creatinine Ratio 22.3 H, Glucose 305 H, Hemoglobin A1c 5.5, Calcium 7.9 L, Magnesium 3.5 H, Total Bilirubin 0.40, Triglycerides 118, Cholesterol 161, LDL Cholesterol 68, VLDL Cholesterol 24, HDL Cholesterol 69 Rhythm: EKG: ECHO: Stress Test: Cardiac Cath: PCI: CT Surgery: Holter monitor: EPS: PPM: CXR: Chest CT Scan: Radiography Diagnostic Testing: Radiology Impression Chest/Abdomen/Pelvis CTA 12/30/23 18:52 IMPRESSION: Diffuse interlobular septal thickening consistent with pulmonary edema. Subtle focal hazy perihilar central right upper lobe groundglass airspace disease, likely associated pulmonary edema although other infectious etiology or even neoplastic process is not excluded. Trace bilateral pleural effusions with adjacent atelectasis. Recommend follow-up to resolution. Distal pulmonary artery branch vessel evaluation is suboptimal secondary to timing of contrast bolus as well as respiratory motion, however, there is no obvious large proximal pulmonary embolus. 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 2 cm hypoattenuating left anterior splenic lesion increased in size from previous year 1.2 cm. Recommend follow-up evaluation as neoplastic process is not excluded. New posterior left apical 13 mm nodule. Recommend comparison with previous imaging to document long-term stability versus follow-up evaluation as per Fleischner guidelines as neoplastic process is not excluded. No acute abdominal abnormality is identified. Electronically Signed: Mikal Gold MD at 21:59 EST , Echocardiogram 12/30/23 23:20 Interpretation Summary The left ventricular ejection fraction is 20 %. Normal LV size. Severe segmental systolic dysfunction (see wall motion). Contrast injection was performed. Ordering Physician: Kanwal Aguilar Performed By: Gladys Fenton RDCS and Student Chest X-Ray 12/31/23 05:40 IMPRESSION: Diffuse bilateral patchy airspace disease, to include pneumonia or pulmonary edema. Recommend follow-up to resolution. Electronically Signed: Mikal Gold MD at 6:20 EST ,
[2023-12-31 18:03] LABS: Bedside Glucose 191 mg/dL (74-106)
--- NOTE | 2023-12-31 19:33 | EX.PCM.CON.G ---
HPI Consult Data Date of Consult: 12/31/23 HPI Narrative Reason for Consultation: Possible GI bleed HPI Narrative: LUBA MARSH, is a 68 F who presented to the emergency department with a chief complaint of nausea vomiting and diarrhea. Patient states on Sunday she ate pizza and then on Sunday she woke up with nausea vomit diarrhea. Patient states that she has had black stools since then as well. Patient states that she is feeling worse which prompted her to come here for further evaluation management. Patient denies any iron supplementation denies any Pepto-Bismol use. She has a past medical history of a recent diagnosis of nonobstructive CAD w/ Takotsubo syndrome with reduced EF of 20% 09/2023, Workup in the ED included T96.1, heart 127, BP 133/83, respiratory rate 16, 98% on room air however desaturating down to 80% eventually placed on 6 L nasal cannula again desaturating down to 89% on 6 L nasal cannula eventually placed on BiPAP, then she was placed on 30% FiO2 and is currently on 4 L maintaining oxygen saturation 99%. I was called because she had some melanotic stools in the setting of occult stool positive. She has not had any more dark stools today. She had a slight decrease in her hemoglobin. CT chest/abdomen/pelvis with diffuse interlobular septal thickening consistent with pulmonary edema, subtle focal hazy perihilar central right upper lobe groundglass airspace disease likely pulmonary edema although could be infectious etiology or even potentially neoplastic cannot be excluded, trace bilateral pleural effusions with adjacent atelectasis, there was also stable near complete obstruction of the right renal artery just beyond the origin, 2 cm hypoattenuating left anterior splenic lesion increased in size from previous year 1.2 cm, new posterior left apical 13 mm nodule. EKG with ST with nonspecific ST-T wave changes no acute evidence of ischemia. BNP obtained later and eventually resulted 3619.4 when patient overloaded appearance became apparent. [facility] Medical History Non-ST elevation [place] (NSTEMI) Hiatal hernia Irritable bowel Back pain due to injury Restless legs Injury of head and neck High cholesterol Hearing loss, right Bipolar disorder Depression Anxiety GERD (gastroesophageal reflux disease) Former smoker Sleep apnea Atrial fibrillation Migraines Dementia Closed intertrochanteric fracture of left hip Psoriatic arthritis Nonobstructive atherosclerosis of coronary artery Obesity Type 2 diabetes mellitus Takotsubo syndrome Hyperlipidemia Essential (primary) hypertension NSTEMI (non-ST elevated myocardial infarction) (01/06/18) Home Medications ?Medication ?Instructions ?Recorded ?Last Taken ?Type alendronate 70 mg tablet 70 mg PO SA osteoporosis 01/06/18 Unknown History buspirone 7.5 mg tablet 15 mg PO BID anxiety 01/06/18 Unknown History fluoxetine 40 mg capsule 40 mg PO BID anxiety 01/06/18 Unknown History glipizide 5 mg tablet 10 mg PO DAILY antidiabetic 01/06/18 Unknown History ergocalciferol (vitamin D2) 1,250 50,000 unit PO .COMPLEX supplement 02/12/19 Unknown History mcg (50,000 unit) capsule lisinopril 20 mg tablet 20 mg PO DAILY #30 tabs 02/15/19 Unknown Rx gabapentin 100 mg capsule 100 mg PO Q8H pain 04/14/23 Unknown History meloxicam 7.5 mg tablet 7.5 mg PO DAILY pain 04/14/23 Unknown History ondansetron 4 mg disintegrating 4 mg PO TID PRN nausea and 04/14/23 Unknown Rx tablet vomiting #21 tabs oxybutynin chloride 10 mg 20 mg PO DAILY bladder 04/14/23 Unknown History tablet,extended release 24 hr simvastatin 40 mg tablet 40 mg PO DAILY cholesterol 04/14/23 Unknown History turmeric 1 cap PO DAILY supplement 04/14/23 Unknown History aspirin 81 mg tablet,delayed 81 mg PO BREAKFAST 30 days #30 tabs 09/20/23 Unknown Rx release pantoprazole 40 mg tablet,delayed 40 mg PO BID #60 tabs 09/20/23 Unknown Rx release (Protonix) carvedilol 6.25 mg tablet 6.25 mg PO BID Awaiting mail in 10/18/23 Unknown Rx RX, pt is out of med #60 tabs methocarbamol 500 mg tablet 1,000 mg PO BID 12/30/23 Unknown History Allergy/AdvReac Type Severity Reaction Status Date / Time morphine Allergy Mild confusion Verified 12/30/23 18:09 codeine Allergy Itching Verified 12/30/23 18:09 fentanyl AdvReac confusion Verified 12/30/23 18:09 naproxen AdvReac Other Verified 12/30/23 18:09 Family History Mother Cancer skin Father Cancer prostate Surgical History History of back surgery History of carpal tunnel release of both wrists History of hysterectomy History of left heart catheterization (01/07/18) Social History (Updated 12/30/23 @ 23:[address] Kanwal Aguilar MD) household members: spouse Smoking Status: Former smoker how long ago did patient quit smokin years ago alcohol intake: never substance use type: does not use caffeine: Yes Type: carbonated beverages Number of servings: 1 ROS ROS Narrative Full 12 point ROS completed and neg unless stated in HPI above. Physical Exam Const alert and oriented x3 HEENT normocephalic Resp Resp Narrative: Left basal crackles Cardio regular rate Extremity no pedal edema Lab / Micro Data 12/31/23 04:50 12/31/23 04:50 Labs: Laboratory Results - last 24 hr 12/30/23 18:40: Sodium 140, Potassium 3.8, Chloride 105, Carbon Dioxide 21.0, Anion Gap 14, BUN 41 H, Creatinine 1.96 H, Estim Creat Clear Calc 25.36, Est GFR (MDRD) Af Amer 32 L, Est GFR (MDRD) Non-Af 27 L, BUN/Creatinine Ratio 20.9 H, Glucose 405 H, Calcium 9.6, Total Bilirubin 0.70, AST 36, ALT 38, Alkaline Phosphatase 93, Troponin I High Sens 2872 H*, Total Protein 8.2, Albumin 4.1, Globulin 4.1, Albumin/Globulin Ratio 1.0, Lipase 20 12/30/23 19:00: Lactic Acid 3.2 H* 12/30/23 19:02: B-Natriuretic Peptide 3619.4 H, Blood Type O POSITIVE, Antibody Screen NEGATIVE 12/30/23 21:10: Urine Color Yellow, Urine Clarity Turbid, Urine pH 5.0, Ur Specific [place] 1.025, Urine Protein 100 H, Urine Glucose (UA) 50 H, Urine Ketones Negative, Urine Occult Blood 25 H, Urine Nitrite Negative, Urine Bilirubin 1 H, Urine Urobilinogen Normal, Ur Leukocyte Esterase 500 H, Urine RBC 5-10 SEEN, Urine WBC 50-100 SEEN, Ur Squamous Epith Cells 0-5 SEEN, Ur Renal Epithelial Cell 0-5 SEEN, Urine Bacteria 4+, Hyaline Casts 0-5 SEEN, Urine Mucus 0 SEEN 12/30/23 21:20: Magnesium 1.3 L, Troponin I High Sens 2585 H* 12/30/23 23:30: Hgb 13.5, Hct 43.4, Lactic Acid 3.2 H* 12/30/23 23:56: POC Glucose 300 H 12/31/23 00:30: Troponin I High Sens 3067 H* 12/31/23 04:50: WBC 27.8 H, RBC 4.49, Hgb 13.2, Hct 42.0, MCV 93.5, MCH 29.4, MCHC 31.4 L, RDW Std Deviation 44.9 H, RDW Coeff of Gerhard 13.1, Plt Count 324, MPV 9.6, Immature Gran % (Auto) 0.700, Neut % (Auto) 88.6 H, Lymph % (Auto) 4.9 L, [place] % (Auto) 5.7, Eos % (Auto) 0.0, Baso % (Auto) 0.1, Absolute Neuts (auto) 24.6 H, Absolute Lymphs (auto) 1.36, Nucleated RBC % 0, Differential Comment SCANNED, Diff Path Review May , Platelet Estimate ADEQUATE, Anisocytosis 1+, Ovalocytes 1+, Sodium 140, Potassium 4.0, Chloride 113 H, Carbon Dioxide 20.0 L, Anion Gap 8, BUN 37 H, Creatinine 1.66 H, Estim Creat Clear Calc 23.05, Est GFR (MDRD) Af Amer 39 L, Est GFR (MDRD) Non-Af 32 L, BUN/Creatinine Ratio 22.3 H, Glucose 305 H, Hemoglobin A1c 5.5, Calcium 7.9 L, Magnesium 3.5 H, Total Bilirubin 0.40, AST 29, ALT 31, Alkaline Phosphatase 73, Total Protein 6.7, Albumin 3.1 L, Globulin 3.6, Albumin/Globulin Ratio 0.9, Triglycerides 118, Cholesterol 161, LDL Cholesterol 68, VLDL Cholesterol 24, HDL Cholesterol 69, TSH 2.700 12/31/23 05:01: POC Glucose 264 H 12/31/23 11:37: POC Glucose 244 H 12/31/23 17:38: POC Glucose 191 H Micro: Microbiology 12/30/23 21:10 Urine, Clean Catch Urine Culture - Preliminary Presumptive E. coli 12/30/23 21:10 Urine Catheter - Catheter Legionella Antigen - Final 12/30/23 23:42 Nasal Secretion MRSA (PCR) - Final 12/31/23 00:00 Mucosa - Nasopharyngeal Respiratory Panel (PCR) - Final 12/30/23 20:00 Mucosa - Nose SARS-CoV-2, Influenza & RSV (PCR) - Final 12/30/23 18:50 Stool Stool Occult Blood (EARLE) - Final Occult Blood Positive Imaging Radiology Impression Chest/Abdomen/Pelvis CTA 12/30/23 18:52 IMPRESSION: Diffuse interlobular septal thickening consistent with pulmonary edema. Subtle focal hazy perihilar central right upper lobe groundglass airspace disease, likely associated pulmonary edema although other infectious etiology or even neoplastic process is not excluded. Trace bilateral pleural effusions with adjacent atelectasis. Recommend follow-up to resolution. Distal pulmonary artery branch vessel evaluation is suboptimal secondary to timing of contrast bolus as well as respiratory motion, however, there is no obvious large proximal pulmonary embolus. 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 2 cm hypoattenuating left anterior splenic lesion increased in size from previous year 1.2 cm. Recommend follow-up evaluation as neoplastic process is not excluded. New posterior left apical 13 mm nodule. Recommend comparison with previous imaging to document long-term stability versus follow-up evaluation as per Fleischner guidelines as neoplastic process is not excluded. No acute abdominal abnormality is identified. Electronically Signed: Mikal Gold MD at 21:59 EST , Echocardiogram 12/30/23 23:20 Interpretation Summary The left ventricular ejection fraction is 20 %. Normal LV size. Severe segmental systolic dysfunction (see wall motion). Contrast injection was performed. Ordering Physician: Kanwal Aguilar Performed By: Gladys Fenton RDCS and Student Chest X-Ray 12/31/23 05:40 IMPRESSION: Diffuse bilateral patchy airspace disease, to include pneumonia or pulmonary edema. Recommend follow-up to resolution. Electronically Signed: Mikal Gold MD at 6:20 EST , Assessment & Plan Assessment/Plan (1) Urinary tract infection: PLAN: Plan The patient is a 68 with nonobstructive CAD w/ Takotsubo syndrome with reduced EF of 20% 09/2023 who presents with black melanotic stools reportedly since then prompting eventual ED evaluation to be cautious. Acute GI Bleed with reported melanotic schools, concurrently nausea and emesis as well as diarrhea: Admission hemoglobin 14.8, and currently is down to 13.2. Baseline previously had been 12-14, most recent prior 10/11/2023 hemoglobin 12.7, reports ongoing melanotic stools since Sunday, guaiac is positive. She should undergo an upper endoscopy to make sure she can go on antiplatelet therapy for nonischemic cardiomyopathy. She was explained alternatives, risk and benefits include not withstanding bleeding, infection, sepsis, perforation, need for emergent . She will have an ASA of 3. Recommend continue PPI therapy as previously ordered., will obtain serial H+H assessments, type and screen initiated per ED physician, will maintain on IV Protonix, as noted pending stool C. difficile/enteric to be cautious especially given a myriad of ongoing concurrent issues, holding off on any antiplatelet/anticoagulant therapy in the setting of NSTEMI secondary to this concurrent presentation, will request gastroenterology involvement, will allow clears until midnight with n.p.o. status following with close continue hemoglobin assessments. Charges/Coding Visit Charges Inpatient E&M: 25763 Init Hosp L3
[2023-12-31] MEDS: Nystatin Powder 15gm Bottle 1 APPLIC TOPICAL (21:29)
[2023-12-31] MEDS: Pantoprazole Sodium 40 MG in 0.9% Normal Saline (100mL MB+) 100 ML 330 MG IV (21:31)
[2023-12-31] MEDS: Carvedilol 3.125 MG TABLET PO (21:31)
[2023-12-31] MEDS: proCHLORPERazine 10 MG/2 ML Vial 5 MG IV (23:21)
[2023-12-31 23:46] LABS: Bedside Glucose 205 mg/dL (74-106)
[2024-01-01] VITALS (20 sets, daily range): BP systolic 96–132; BP diastolic 56–81; PULSE 94–110; RESP 16–20; TEMP 36.6–37.9; O2SAT 91–100; BMI 17.4
[2024-01-01] MEDS: proCHLORPERazine 10 MG/2 ML Vial 5 MG IV (04:05)
[2024-01-01 04:25] LABS: Absolute Lymphocyte Count 1.65 X10^3/uL (0.83-4.51); Absolute Neutrophil Count 14.5 X10^3/uL (2.0-7.7); Basophil# 0.02 X10^3/uL; Basophil% 0.1 % (0-1); Eosinophil# 0.05 X10^3/uL; Eosinophils% 0.3 % (0-5); Hematocrit 42.1 % (37-47); Hemoglobin 13.2 g/dL (12.0-15.0); Lymphocyte # 1.65 X10^3/ul (0.83-4.51); Lymphocyte % 9.6 % (19-41); Mean Corp Hgb Conc 31.4 g/dL (32-36); Mean Corpuscular Hgb 29.1 pg (27.0-32.0); Mean Corpuscular Volume 92.9 fL (81-99); Mean Platelet Vol. 9.6 fl (6.2-12.0); Monocyte# 0.96 X10^3/uL; Monocyte% 5.6 % (0-10); NRBC Flagged by Analyzer 0 % (0-5); Neutrophil % 83.9 % (47-70); Platelet Count 292 K/mm3 (150-450); RBC Distribution Width CV 13.3 % (11.6-14.6); RBC Distribution Width SD 45.4 fl (35.1-43.9); Red Blood Count 4.53 M/mm3 (4.2-5.4); White Blood Count 17.3 K/mm3 (4.4-11.0)
[2024-01-01 04:44] LABS: Anion Gap 4 (5-15); BUN 40 mg/dL (7-18); BUN/Creat Ratio 30.3 RATIO (10-20); Calcium,Total 8.9 mg/dL (8.5-10.1); Chloride 112 mmol/L (98-107); Creatinine, Serum 1.32 mg/dL (0.55-1.02); EST Glomerular Filtration Rate 42 mL/min (>60); Est Glom Filt Rate - Afr Amer 51 mL/min (>60); Glucose 227 mg/dL (74-106); Potassium 4.3 mmol/L (3.5-5.1); Sodium Level 141 mmol/L (136-145)
[2024-01-01] MEDS: Piperacil/Tazobactam 3.375 GM in 0.9% Normal Saline (50mL MB+) 50 ML IV (05:57)
[2024-01-01] MEDS: Insulin Lispro 100 UNIT/ML INSULN.PEN SC ×4 (05:58→23:37)
[2024-01-01] MEDS: 0.9% Saline Lock 10 ML Syringe IV ×2 (05:58→21:03)
[2024-01-01 06:19] LABS: Bedside Glucose 213 mg/dL (74-106)
[2024-01-01] MEDS: Budesonide Respules 0.5 MG/2 ML AMPUL.NEB. INHALATION ×2 (07:05→18:58)
--- NOTE | 2024-01-01 07:17 | PN.HOSP_ITS ---
Reason for Visit Reason for Visit: Diagnoses Acute on chronic systolic (congestive) heart failure (12/30/23) Heart failure, unspecified (12/30/23) Urinary tract infection, site not specified (12/30/23) Fever, unspecified (12/30/23) Other specified abnormal findings of blood chemistry (12/30/23) Subjective Subjective Patient reports having some abdominal upset and nausea after drinking water last night but reports she is feeling overall better today, has not had any more bowel movements. Breathing improving Objective Data Objective Data Vital Signs: Vital Signs Temp Pulse Resp BP Pulse Ox O2 Del Method O2 Flow Rate 100.3 F H 110 H 20 H 119/77 100 Nasal Cannula 2 01/01/24 07:00 01/01/24 07:06 01/01/24 07:06 01/01/24 07:00 01/01/24 07:06 01/01/24 07:06 01/01/24 07:06 FiO2 2 01/01/24 04:00 Oxygen Flow Rate (L/min) 2 Oxygen Delivery Method Nasal Cannula Weight: 47.6 kg Body Mass Index (BMI) 17.4 Intake & Output: Intake and Output for Last 24 Hours 12/30/23 12/31/23 01/01/24 23:59 23:59 23:59 Intake Total 1025.8 / 1025.8 1471.33 / 1471.33 50 / 50 Output Total 795 / 795 107 / 107 Balance 1025.8 / 1025.8 676.33 / 676.33 -57 / -57 Lab / Micro Data 01/01/24 04:18 01/01/24 04:18 Labs: Laboratory Results - last 24 hr 12/31/23 04:50: Hemoglobin A1c 5.5 12/31/23 11:37: POC Glucose 244 H 12/31/23 17:38: POC Glucose 191 H 12/31/23 23:24: POC Glucose 205 H 01/01/24 04:18: WBC 17.3 H, RBC 4.53, Hgb 13.2, Hct 42.1, MCV 92.9, MCH 29.1, M CHC 31.4 L, RDW Std Deviation 45.4 H, RDW Coeff of Gerhard 13.3, Plt Count 292, MPV 9.6, Immature Gran % (Auto) 0.500, Neut % (Auto) 83.9 H, Lymph % (Auto) 9.6 L, [place] % (Auto) 5.6, Eos % (Auto) 0.3, Baso % (Auto) 0.1, Absolute Neuts (auto) 14.5 H, Absolute Lymphs (auto) 1.65, Nucleated RBC % 0, Sodium 141, Potassium 4.3, Chloride 112 H, Carbon Dioxide 25.0, Anion Gap 4 L, BUN 40 H, Creatinine 1.32 H, Estim Creat Clear Calc 29.80, Est GFR (MDRD) Af Amer 51 L, Est GFR (MDRD) Non-Af 42 L, BUN/Creatinine Ratio 30.3 H, Glucose 227 H, Calcium 8.9 01/01/24 05:55: POC Glucose 213 H Micro: Microbiology 12/30/23 21:10 Urine, Clean Catch Urine Culture - Preliminary Presumptive E. coli 12/30/23 21:10 Urine Catheter - Catheter Legionella Antigen - Final 12/30/23 23:42 Nasal Secretion MRSA (PCR) - Final 12/31/23 00:00 Mucosa - Nasopharyngeal Respiratory Panel (PCR) - Final 12/30/23 20:00 Mucosa - Nose SARS-CoV-2, Influenza & RSV (PCR) - Final 12/30/23 18:50 Stool Stool Occult Blood (EARLE) - Final Occult Blood Positive Radiography Diagnostic Testing: Radiology Impression Echocardiogram 12/30/23 23:20 Interpretation Summary The left ventricular ejection fraction is 20 %. Normal LV size. Severe segmental systolic dysfunction (see wall motion). Contrast injection was performed. Ordering Physician: Kanwal Aguilar Performed By: Gladys Fenton RDCS and Student Physical Exam Narrative General: Alert, no apparent distress HEENT: Atraumatic, normocephalic Eyes: Anicteric, normal conjunctiva, extraocular movements grossly intact Neck: Supple Respiratory: Improving aeration Cardiovascular: Low-grade sinus tachycardia GI: Soft, a little bit of discomfort on deep palpation without rebound, guarding, rigidity Extremities: No significant pitting edema Musculoskeletal: Moving all extremities Neuro: No overt focal neurological deficits Skin: No rashes appreciated Psych: Cooperative Assessment & Plan Assessment/Plan (1) Febrile: PLAN: Plan #Nausea/Emesis/Diarrhea/Melena -Started roughly 3 days prior to admission -Patient with hemoglobin of 14.8 on presentation, 13.2 today -Did have FOBT which was positive in the ED -On PPI drip -GI was consulted -Patient is n.p.o. -Stool studies ordered but not yet collected -12/31: Stool studies canceled as patient has not had any more diarrhea, reports she felt a little bit of abdominal discomfort and nausea last night but is feeling better today. Initial plan was for endoscopy however patient reports that she is feeling better and given stability of her labs she would prefer to not undergo endoscopy at this time but will consider if she had any more blood in her stool or downtrending hemoglobin or intractable GI symptoms # Suspected sepsis -Patient with leukocytosis up to 27.8, patient febrile with temperatures up to 101 has been tachycardic, initially heart rate 127 with respiratory rate that increased to the 30s lactic acid of 3.2 and several systolic blood pressures less than 90. Additionally patient with DURAN on presentation with a baseline creatinine around 1 and it was 1.96 on arrival also acute encephalopathy on admission which was noted by admitting physician -UA with negative nitrite, 500 leuk esterase with 50-100 white blood cells and 4+ bacteria and preliminarily growing E. coli -CT chest and chest x-ray with pulmonary edema versus infectious process -Urine antigens negative -Viral respiratory panel and COVID-negative -Urine and blood cultures pending -Patient on broad-spectrum antibiotics with Zosyn -Stool studies ordered but not yet collected -12/31: Stool studies not yet able to be obtained. White blood cell count is downtrending, still slightly tachycardic but blood pressure stable, urine culture with pansensitive E. coli, suspect this is the cause of her sepsis. Will de-escalate to Rocephin. blood culture still pending # Acute hypoxia secondary to flash pulmonary edema secondary to acute exacerbation of heart failure with reduced ejection fraction secondary to Takotsubo cardiomyopathy after IV fluids for sepsis -Patient initially 98% on room air and then desaturated to 80%, improved initially on 6 L however desaturated down to 89% despite 6 L and was started on BiPAP -Admit to intensive care unit, hot tamale worker consult -Patient on BiPAP with improving saturations, developed the significant respiratory distress after fluid resuscitation for her suspected sepsis -BNP 3619 -CXR pulmonary edema versus infectious process -Patient initially not started on IV Lasix given her sepsis, also not given full sepsis fluids due to her low EF and flash pulmonary edema, -Last echo 09/17/2023 with EF of 20% and severe segmental systolic dysfunction, reportedly consistent with Takotsubo -Repeat echo was ordered -Daily weights, I's and O's -12/31: Respiratory status improved and patient only on 2 L O2 with sats in the mid to high 90s, did not require Lasix. Repeat echo again demonstrated EF of 20% with severe segmental systolic dysfunction. Continue to monitor weights and I's and O's #Elevated troponin -Troponin 2800, initially down trended to 2500 and is back up to 3000 -Suspect that this is secondary to either fluid overload or sepsis or combination of both -Patient with repeat echo pending -Not presently on heparin drip given no chest pain but does have significant elevation in her troponins and BNP -Given this and patient's very complex presentation and history cardiology consult placed on admission -12/31: Repeat echo again demonstrated EF of 20% with severe segmental systolic dysfunction. Cardiology evaluated and suspects elevated troponin is secondary to underlying medical issues on top of her known obstructive CAD and a small diameter vessel which could explain the degree of troponin elevation. It was advised to resume carvedilol, started at low-dose. Resume LEYDI as tolerated #Type 2 diabetes mellitus -Glucose checks and sliding scale insulin -Hold home glipizide -12/31: Remains elevated, increase sliding scale factor, patient still NPO. May need to schedule Premeal or long-acting depending on glucoses moving forward # Suspect DURAN -Creatinine on arrival 1.96 with a baseline closer to 1 -Repeat this a.m. 1.66 -And CTA chest abdomen pelvis patient did have a near complete obstructing right renal artery lesion just beyond the origin which was reported to be stable -12/31: Creatinine is continued to downtrend, down to 1.32 today #GERD -Patient has not been taking her PPI, presently on PPI drip -12/31: Continue PPI as above #Hypertension -Patient has not been taking her carvedilol as she has been out, hold lisinopril given patient's sepsis and DURAN -12/31: Resume low-dose carvedilol per cardiology recommendations, resume AC when at lower dose when BP tolerates Chronic medical problems: #Depression/anxiety -Continue home medications # Abnormal CT imaging of chest and abdomen -Right upper lobe groundglass airspace disease likely pulmonary edema cannot exclude infectious etiology or neoplastic process and recommended follow-up to resolution recommended -Ultimately need further imaging -Additionally new posterior left apical 13 mm nodule which will need compared to previous imaging to document long-term stability versus follow-up evaluation per Fleischner guidelines -Patient also had 2 cm hypoattenuating left anterior splenic lesion which increased from 1.2 cm to previous year and is also recommended that this have repeat follow-up evaluation #DVT ppx: SCDs Zahra Palacio MD Time spent in the patient's overall evaluation, decision-making process, review of diagnostic data, adjustment of management, discussion with other providers, nursing and ancillary staff involved in patient's care documentation, 40 Minutes Charges/Coding Visit Charges Inpatient E&M: 72944 Subs Hosp L2
--- NOTE | 2024-01-01 08:52 | CASEMGMT ---
HAMILTON COSTA into pt room to follow up on DC plan. Pt lying in bed in no distress. Pt states therapy went well yesterday, denies wanting [facility] or therapy services. Pt states does not feel it was helpful for her in the past and does not want to get it again. Discussed possible O2 needs at time of DC, pt states does not want any oxygen at home, states it is annoying and she does not want it in her home. HAMILTON COSTA will continue to follow for DC needs.
[2024-01-01] MEDS: Fluoxetine HCl 40 MG CAPSULE PO ×2 (10:27→21:02)
[2024-01-01] MEDS: Carvedilol 3.125 MG TABLET PO (10:27)
[2024-01-01] MEDS: Nystatin Powder 15gm Bottle 1 APPLIC TOPICAL ×2 (10:28→21:01)
[2024-01-01] MEDS: busPIRone 15 MG TABLET PO ×2 (10:28→21:02)
[2024-01-01] MEDS: Atorvastatin Calcium 20 MG Tablet PO (10:28)
[2024-01-01] MEDS: Pantoprazole Sodium 40 MG in 0.9% Normal Saline (100mL MB+) 100 ML 330 MG IV ×2 (10:29→21:18)
--- NOTE | 2024-01-01 10:32 | PN.CC_ITS ---
Assessment & Plan Assessment/Plan (1) CHF exacerbation: QUALIFIERS: Heart failure type: systolic Qualified Code(s): I 50.23 - Acute on chronic systolic (congestive) heart failure PLAN: Plan RECOMMENDATIONS: 1. Continue to wean supplemental oxygen to maintain saturations at or above 90%. 2. Continue antimicrobials. 3. Continue PPI therapy twice daily. 4. Encourage incentive spirometer use and mobilize patient as tolerated. 5. The patient is medically stable for transfer out of the intensive care unit. IMPRESSIONS: 1. Acute hypoxemic respiratory failure Suspect related to flash pulmonary edema in the setting of fluid resuscitative efforts. The patient has known underlying cardiac disease with depressed ejection fraction. The patient did stabilize from a respiratory perspective with noninvasive positive pressure ventilatory support. Recommend conservative use of IV fluids in this patient. Recommend weaning supplemental oxygen to maintain saturations at or above 90%. Encourage incentive spirometer use and mobilize patient as tolerated. 2. NSTEMI/acute decompensated heart failure The patient has a known history of Takotsubo cardiomyopathy. She presented with an elevated BNP and troponin, concerning for demand ischemia and radiographic evidence of bilateral infiltrates concerning for pulmonary edema. Clinical concern is for acute decompensated heart failure. However, underlying pneumonia is another possibility. Nevertheless, the patient denies any sputum production. Follow-up echocardiogram completed on December 30 and again demonstrated an ejection fraction of 20%. Continue medical management per cardiology recommendations. 3. Melanotic stools The patient presented with melanotic stools and was noted to be positive for occult blood. Nevertheless, her hemoglobin has remained stable. Gastroenterology is currently following. The patient is not currently interested in pursuing inpatient endoscopic evaluation. This can likely be arranged on an outpatient basis. 4. E. coli UTI Continue antimicrobials as ordered. 5. Acute kidney injury Improving. Most likely prerenal in etiology. Continue to monitor urine output for now. Avoid nephrotoxic medications. No current indication for renal replacement therapy. 6. History of hypertension/hyperlipidemia/paroxysmal atrial fibrillation/diabetes mellitus/obstructive sleep apnea Complicates care, management, recovery and prognosis. Continue PAP therapy throughout the day as needed along with nightly. This note was generated with [employer] software. It may contain incorrect words, spelling, and punctuation that were not noted in checking the note before signing. Subjective Subjective The patient was seen and examined at the bedside this morning. Events from the last 24 hours have been reviewed. The patient currently has a low-grade fever but remains otherwise hemodynamically stable on 2 L/min via nasal cannula. White blood cell count has improved to 17,000. Creatinine has improved to 1.32. Hemoglobin has remained stable at 13.2 g/dL. The patient reported to me this morning that she was not interested in pursuing endoscopic evaluation as scheduled. Objective Data Objective Data The patient's most recent lab work, culture data and imaging studies have all been personally reviewed. Surface echocardiogram demonstrated severe segmental systolic dysfunction with an ejection fraction of 20%. Respiratory viral panel was negative. MRSA screen was negative. Strep and urine Legionella antigens were negative. COVID, influenza and RSV PCR's were negative. Preliminary urine culture is demonstrating growth of E. coli. Vital Signs: Vital Signs Temp Pulse Resp BP Pulse Ox O2 Del Method O2 Flow Rate 100.2 F H 109 H 18 129/71 H 96 Nasal Cannula 2 01/01/24 08:00 01/01/24 09:00 01/01/24 09:00 01/01/24 09:00 01/01/24 09:19 01/01/24 09:00 01/01/24 09:19 FiO2 2 01/01/24 04:00 Oxygen Flow Rate (L/min) 2 Oxygen Delivery Method Nasal Cannula Weight: 104 lb 15.04 oz Body Mass Index (BMI) 17.4 Intake & Output: Intake and Output for Last 24 Hours 12/30/23 12/31/23 01/01/24 23:59 23:59 23:59 Intake Total 1025.8 / 1025.8 1471.33 / 1471.33 50 / 50 Output Total 795 / 795 107 / 107 Balance 1025.8 / 1025.8 676.33 / 676.33 -57 / -57 Lab / Micro Data Attestation: I reviewed the patient's lab results. 01/01/24 04:18 01/01/24 04:18 Labs: Laboratory Results - last 24 hr 12/31/23 11:37: POC Glucose 244 H 12/31/23 17:38: POC Glucose 191 H 12/31/23 23:24: POC Glucose 205 H 01/01/24 04:18: WBC 17.3 H, RBC 4.53, Hgb 13.2, Hct 42.1, MCV 92.9, MCH 29.1, M CHC 31.4 L, RDW Std Deviation 45.4 H, RDW Coeff of Gerhard 13.3, Plt Count 292, MPV 9.6, Immature Gran % (Auto) 0.500, Neut % (Auto) 83.9 H, Lymph % (Auto) 9.6 L, [place] % (Auto) 5.6, Eos % (Auto) 0.3, Baso % (Auto) 0.1, Absolute Neuts (auto) 14.5 H, Absolute Lymphs (auto) 1.65, Nucleated RBC % 0, Sodium 141, Potassium 4.3, Chloride 112 H, Carbon Dioxide 25.0, Anion Gap 4 L, BUN 40 H, Creatinine 1.32 H, Estim Creat Clear Calc 29.80, Est GFR (MDRD) Af Amer 51 L, Est GFR (MDRD) Non-Af 42 L, BUN/Creatinine Ratio 30.3 H, Glucose 227 H, Calcium 8.9 01/01/24 05:55: POC Glucose 213 H Micro: Microbiology 12/30/23 21:10 Urine, Clean Catch Urine Culture - Final Presumptive E. coli 12/30/23 21:10 Urine Catheter - Catheter Legionella Antigen - Final 12/30/23 23:42 Nasal Secretion MRSA (PCR) - Final 12/31/23 00:00 Mucosa - Nasopharyngeal Respiratory Panel (PCR) - Final 12/30/23 20:00 Mucosa - Nose SARS-CoV-2, Influenza & RSV (PCR) - Final 12/30/23 18:50 Stool Stool Occult Blood (EARLE) - Final Occult Blood Positive Radiography Diagnostic Testing: Radiology Impression Chest/Abdomen/Pelvis CTA 12/30/23 18:52 IMPRESSION: Diffuse interlobular septal thickening consistent with pulmonary edema. Subtle focal hazy perihilar central right upper lobe groundglass airspace disease, likely associated pulmonary edema although other infectious etiology or even neoplastic process is not excluded. Trace bilateral pleural effusions with adjacent atelectasis. Recommend follow-up to resolution. Distal pulmonary artery branch vessel evaluation is suboptimal secondary to timing of contrast bolus as well as respiratory motion, however, there is no obvious large proximal pulmonary embolus. 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 2 cm hypoattenuating left anterior splenic lesion increased in size from previous year 1.2 cm. Recommend follow-up evaluation as neoplastic process is not excluded. New posterior left apical 13 mm nodule. Recommend comparison with previous imaging to document long-term stability versus follow-up evaluation as per Fleischner guidelines as neoplastic process is not excluded. No acute abdominal abnormality is identified. Electronically Signed: Mikal Gold MD at 21:59 EST , Echocardiogram 12/30/23 23:20 Interpretation Summary The left ventricular ejection fraction is 20 %. Normal LV size. Severe segmental systolic dysfunction (see wall motion). Contrast injection was performed. Ordering Physician: Kanwal Aguilar Performed By: Gladys Fenton RDCS and Student Chest X-Ray 12/31/23 05:40 IMPRESSION: Diffuse bilateral patchy airspace disease, to include pneumonia or pulmonary edema. Recommend follow-up to resolution. Electronically Signed: Mikal Gold MD at 6:20 EST , Physical Exam Const alert, oriented x3 and no apparent distress General Appearance: cooperative HEENT normocephalic, head/scalp atraumatic and moist oral mucous membranes Eyes PERRL, EOMs intact bilaterally and conjunctivae normal Neck supple General: trachea midline Chest inspection of chest normal Resp normal respiratory effort Auscultation: diminished lung sounds; Negative for rales, rhonchi or wheezes Cardio S1 normal heart sound and S2 normal heart sound Rate: tachycardic GI normal to inspection, nondistended, normoactive bowel sounds Extremity no clubbing, cyanosis or edema Skin no rashes or lesions noted Neuro CN's II-XII intact bilaterally, moves all extremities and no focal motor deficits Psych cooperative and affect normal Charges/Coding Visit Charges Inpatient E&M: 16448 Subs Hosp L2
[2024-01-01] MEDS: Ceftriaxone 2 GM in 0.9% Normal Saline (50mL MB+) 50 ML IV (11:37)
[2024-01-01 11:57] LABS: Bedside Glucose 186 mg/dL (74-106)
[2024-01-01] MEDS: Gabapentin 100 MG Capsule PO ×2 (14:05→21:01)
--- NOTE | 2024-01-01 21:44 | CPS ---
Patient refused PAP therapy for night time use.
[2024-01-01 23:57] LABS: Bedside Glucose 187 mg/dL (74-106)
[2024-01-02] VITALS (9 sets, daily range): BP systolic 101–128; BP diastolic 54–76; PULSE 89–106; RESP 16–20; TEMP 36.2–37.1; O2SAT 92–99; BMI 17.6
[2024-01-02 05:42] LABS: Absolute Lymphocyte Count 2.31 X10^3/uL (0.83-4.51); Absolute Neutrophil Count 8.4 X10^3/uL (2.0-7.7); Basophil# 0.01 X10^3/uL; Basophil% 0.1 % (0-1); Eosinophil# 0.12 X10^3/uL; Hematocrit 39.7 % (37-47); Hemoglobin 12.2 g/dL (12.0-15.0); Lymphocyte # 2.31 X10^3/ul (0.83-4.51); Lymphocyte % 19.3 % (19-41); Mean Corp Hgb Conc 30.7 g/dL (32-36); Mean Corpuscular Hgb 29.4 pg (27.0-32.0); Mean Corpuscular Volume 95.7 fL (81-99); Mean Platelet Vol. 9.6 fl (6.2-12.0); Monocyte# 1.02 X10^3/uL; Monocyte% 8.5 % (0-10); NRBC Flagged by Analyzer 0 % (0-5); Neutrophil # 8.43 X10^3/uL (2.7-7.7); Neutrophil % 70.7 % (47-70); Platelet Count 193 K/mm3 (150-450); RBC Distribution Width CV 13.2 % (11.6-14.6); RBC Distribution Width SD 46.1 fl (35.1-43.9); Red Blood Count 4.15 M/mm3 (4.2-5.4); White Blood Count 11.9 K/mm3 (4.4-11.0)
[2024-01-02 06:26] LABS: Anion Gap 6 (5-15); BUN 31 mg/dL (7-18); BUN/Creat Ratio 30.7 RATIO (10-20); Chloride 111 mmol/L (98-107); Creatinine, Serum 1.01 mg/dL (0.55-1.02); EST Glomerular Filtration Rate 58 mL/min (>60); Est Glom Filt Rate - Afr Amer 70 mL/min (>60); Estimated Creatinine Clearance 39.19 ml/min; Glucose 181 mg/dL (74-106); Potassium 4.6 mmol/L (3.5-5.1); Sodium Level 142 mmol/L (136-145)
[2024-01-02 06:27] LABS: Bedside Glucose 225 mg/dL (74-106)
[2024-01-02] MEDS: Gabapentin 100 MG Capsule PO ×3 (06:38→21:46)
[2024-01-02] MEDS: Insulin Lispro 100 UNIT/ML INSULN.PEN SC ×3 (06:42→16:10)
[2024-01-02] MEDS: Budesonide Respules 0.5 MG/2 ML AMPUL.NEB. INHALATION ×2 (06:48→20:02)
[2024-01-02 07:03] LABS: Bedside Glucose 166 mg/dL (74-106)
[2024-01-02 08:31] LABS: Pathologist Review Reviewed
--- NOTE | 2024-01-02 09:02 | PCM.PN.HOSP ---
Reason for Visit Reason for Visit: Diagnoses Acute on chronic systolic (congestive) heart failure (12/30/23) Heart failure, unspecified (12/30/23) Urinary tract infection, site not specified (12/30/23) Fever, unspecified (12/30/23) Other specified abnormal findings of blood chemistry (12/30/23) Subjective Subjective Patient is feeling better overall, still has some epigastric burning but no more vomiting, had a bowel movement stool studies were able to be sent off but denies any diarrhea, no abdominal pain and only epigastric burning reported. On clears, willing to advance diet Objective Data Objective Data Vital Signs: Vital Signs Temp Pulse Resp BP Pulse Ox O2 Del Method O2 Flow Rate 98.2 F 91 19 H 101/63 93 Nasal Cannula 2 01/02/24 03:20 01/02/24 06:35 01/02/24 06:35 01/02/24 03:20 01/02/24 06:40 01/02/24 08:12 01/02/24 08:12 FiO2 2 01/01/24 04:00 Oxygen Flow Rate (L/min) 2 Oxygen Delivery Method Nasal Cannula Weight: 47.9 kg Body Mass Index (BMI) 17.6 Intake & Output: Intake and Output for Last 24 Hours 12/31/23 01/01/24 01/02/24 23:59 23:59 23:59 Intake Total 1471.33 / 1471.33 445 / 445 Output Total 795 / 795 882 / 882 300 / 300 Balance 676.33 / 676.33 -437 / -437 -300 / -300 Lab / Micro Data 01/02/24 05:21 01/02/24 05:21 Labs: Laboratory Results - last 24 hr 12/31/23 04:50: Diff Path Review Reviewed 01/01/24 11:36: POC Glucose 186 H 01/01/24 16:50: POC Glucose 225 H 01/01/24 23:36: POC Glucose 187 H 01/02/24 05:21: WBC 11.9 H, RBC 4.15 L, Hgb 12.2, Hct 39.7, MCV 95.7, MCH 29.4, MCHC 30.7 L, RDW Std Deviation 46.1 H, RDW Coeff of Gerhard 13.2, Plt Count 193, MPV 9.6, Immature Gran % (Auto) 0.400, Neut % (Auto) 70.7 H, Lymph % (Auto) 19.3, [place] % (Auto) 8.5, Eos % (Auto) 1.0, Baso % (Auto) 0.1, Absolute Neuts (auto) 8.4 H, Absolute Lymphs (auto) 2.31, Nucleated RBC % 0, Sodium 142, Potassium 4.6, Chloride 111 H, Carbon Dioxide 25.0, Anion Gap 6, BUN 31 H, Creatinine 1.01, Estim Creat Clear Calc 39.19, Est GFR (MDRD) Af Amer 70, Est GFR (MDRD) Non-Af 58 L, BUN/Creatinine Ratio 30.7 H, Glucose 181 H, Calcium 9.0 01/02/24 06:35: POC Glucose 166 H Micro: Microbiology 12/30/23 20:00 Blood Culture (Wb) - Left Hand Blood Culture - Preliminary No growth in 48 hours. 12/30/23 21:10 Urine, Clean Catch Urine Culture - Final Presumptive E. coli 12/30/23 21:10 Urine Catheter - Catheter Legionella Antigen - Final 12/30/23 23:42 Nasal Secretion MRSA (PCR) - Final 12/31/23 00:00 Mucosa - Nasopharyngeal Respiratory Panel (PCR) - Final 12/30/23 20:00 Mucosa - Nose SARS-CoV-2, Influenza & RSV (PCR) - Final 12/30/23 18:50 Stool Stool Occult Blood (EARLE) - Final Occult Blood Positive Physical Exam Narrative General: Alert, no apparent distress HEENT: Atraumatic, normocephalic Eyes: Anicteric, normal conjunctiva, extraocular movements grossly intact Neck: Supple Respiratory: Improving aeration, no increased work of breathing Cardiovascular: Tachycardia GI: Soft, nontender overall with no rebound, guarding, rigidity Extremities: No significant pitting edema Musculoskeletal: Moving all extremities Neuro: No overt focal neurological deficits Skin: No rashes appreciated Psych: Cooperative Assessment & Plan Assessment/Plan (1) Febrile: PLAN: Plan #Nausea/Emesis/Diarrhea/Melena -Started roughly 3 days prior to admission -Patient with hemoglobin of 14.8 on presentation, 13.2 today -Did have FOBT which was positive in the ED -On PPI drip -GI was consulted -Patient is n.p.o. -Stool studies ordered but not yet collected -12/31: Stool studies canceled as patient has not had any more diarrhea, reports she felt a little bit of abdominal discomfort and nausea last night but is feeling better today. Initial plan was for endoscopy however patient reports that she is feeling better and given stability of her labs she would prefer to not undergo endoscopy at this time but will consider if she had any more blood in her stool or downtrending hemoglobin or intractable GI symptoms -01/01: Patient on clear liquids due to some more nausea but is improving and is willing to advance, will advance to full, additionally was able to provide stool sample which showed C. difficile PCR but the C. difficile toxin was negative. Enteric panel was negative. Hemoglobin slightly lower today at 12.2. Patient does have some epigastric burning which she reports is off-and-on and also happens at home, she is on PPI, will add simethicone. Will likely need outpatient evaluation and possible scope, patient had refused endoscopy yesterday, this was discussed with patient and family member at bedside and that she will need to follow-up outpatient and they were agreeable # Sepsis secondary to E. coli UTI -Patient with leukocytosis up to 27.8, patient febrile with temperatures up to 101 has been tachycardic, initially heart rate 127 with respiratory rate that increased to the 30s lactic acid of 3.2 and several systolic blood pressures less than 90. Additionally patient with DURAN on presentation with a baseline creatinine around 1 and it was 1.96 on arrival also acute encephalopathy on admission which was noted by admitting physician -UA with negative nitrite, 500 leuk esterase with 50-100 white blood cells and 4+ bacteria and preliminarily growing E. coli -CT chest and chest x-ray with pulmonary edema versus infectious process -Urine antigens negative -Viral respiratory panel and COVID-negative -Urine and blood cultures pending -Patient on broad-spectrum antibiotics with Zosyn -Stool studies ordered but not yet collected -12/31: Stool studies not yet able to be obtained. White blood cell count is downtrending, still slightly tachycardic but blood pressure stable, urine culture with pansensitive E. coli, suspect this is the cause of her sepsis. Will de-escalate to Rocephin. blood culture still pending -01/01: Patient on Rocephin, patient sepsis due to her E. 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 consult -Patient on BiPAP with improving saturations, developed the significant respiratory distress after fluid resuscitation for her suspected sepsis -BNP 3619 -CXR pulmonary edema versus infectious process -Patient initially not started on IV Lasix given her sepsis, also not given full sepsis fluids due to her low EF and flash pulmonary edema, -Last echo 09/17/2023 with EF of 20% and severe segmental systolic dysfunction, reportedly consistent with Takotsubo -Repeat echo was ordered -Daily weights, I's and O's -12/31: Respiratory status improved and patient only on 2 L O2 with sats in the mid to high 90s, did not require Lasix. Repeat echo again demonstrated EF of 20% with severe segmental systolic dysfunction. Continue to monitor weights and I's and O's -01/01: Still requiring 2 L of O2, wean as tolerated #Elevated troponin -Troponin 2800, initially down trended to 2500 and is back up to 3000 -Suspect that this is secondary to either fluid overload or sepsis or combination of both -Patient with repeat echo pending -Not presently on heparin drip given no chest pain but does have significant elevation in her troponins and BNP -Given this and patient's very complex presentation and history cardiology consult placed on admission -12/31: Repeat echo again demonstrated EF of 20% with severe segmental systolic dysfunction. Cardiology evaluated and suspects elevated troponin is secondary to underlying medical issues on top of her known obstructive CAD and a small diameter vessel which could explain the degree of troponin elevation. It was advised to resume carvedilol, started at low-dose. Resume LEYDI as tolerated -01/01: Continue Coreg, BP still borderline so we will hold off on LEYDI #Type 2 diabetes mellitus -Glucose checks and sliding scale insulin -Hold home glipizide -12/31: Remains elevated, increase sliding scale factor, patient still NPO. May need to schedule Premeal or long-acting depending on glucoses moving forward -01/01: Glucose only 166 this a.m. and patient still with fairly poor p.o. intake, continue to monitor closely # DURAN -Creatinine on arrival 1.96 with a baseline closer to 1 -Repeat this a.m. 1.66 -And CTA chest abdomen pelvis patient did have a near complete obstructing right renal artery lesion just beyond the origin which was reported to be stable -12/31: Creatinine is continued to downtrend, down to 1.32 today -01/01: Creatinine continues to improve, creatinine 1.01 today #GERD -Patient has not been taking her PPI, presently on PPI drip -12/31: Continue PPI as above -01/01: Patient refused endoscopy yesterday, continuing PPI at this time, starting simethicone #Hypertension -Patient has not been taking her carvedilol as she has been out, hold lisinopril given patient's sepsis and DURAN -12/31: Resume low-dose carvedilol per cardiology recommendations, resume AC when at lower dose when BP tolerates -01/01: Continue the low-dose carvedilol, BP not yet high enough to reinstitute LEYDI Chronic medical problems: #Depression/anxiety -Continue home medications # Abnormal CT imaging of chest and abdomen -Right upper lobe groundglass airspace disease likely pulmonary edema cannot exclude infectious etiology or neoplastic process and recommended follow-up to resolution recommended -Ultimately need further imaging -Additionally new posterior left apical 13 mm nodule which will need compared to previous imaging to document long-term stability versus follow-up evaluation per Fleischner guidelines -Patient also had 2 cm hypoattenuating left anterior splenic lesion which increased from 1.2 cm to previous year and is also recommended that this have repeat follow-up evaluation #DVT ppx: SCDs Zahra Palacio MD Time spent in the patient's overall evaluation, decision-making process, review of diagnostic data, adjustment of management, discussion with other providers, nursing and ancillary staff involved in patient's care documentation, 37 Minutes Charges/Coding Visit Charges Inpatient E&M: 74700 Subs Hosp L2
[2024-01-02] MEDS: busPIRone 15 MG TABLET PO ×2 (09:33→21:46)
[2024-01-02] MEDS: Carvedilol 3.125 MG TABLET PO ×2 (09:33→21:46)
[2024-01-02] MEDS: Pantoprazole Sodium 40 MG in 0.9% Normal Saline (100mL MB+) 100 ML 330 MG IV ×2 (09:34→21:48)
[2024-01-02] MEDS: Fluoxetine HCl 40 MG CAPSULE PO ×2 (09:34→21:46)
[2024-01-02] MEDS: Atorvastatin Calcium 20 MG Tablet PO (09:34)
[2024-01-02] MEDS: Nystatin Powder 15gm Bottle 1 APPLIC TOPICAL ×2 (09:36→21:46)
--- NOTE | 2024-01-02 10:43 | PCM.PN.INT ---
Assessment & Plan Assessment/Plan (1) CHF exacerbation: QUALIFIERS: Heart failure type: systolic Qualified Code(s): I50.23 - Acute on chronic systolic (congestive) heart failure PLAN: Plan RECOMMENDATIONS: 1. Continue to wean supplemental oxygen to maintain saturations at or above 90%. 2. Continue antimicrobials. 3. Continue PPI therapy twice daily. 4. Encourage incentive spirometer use and mobilize patient as tolerated. 5. Will sign off from a critical care perspective. Please call with any additional questions. IMPRESSIONS: 1. Acute hypoxemic respiratory failure Suspect related to flash pulmonary edema in the setting of fluid resuscitative efforts. The patient has known underlying cardiac disease with depressed ejection fraction. The patient did stabilize from a respiratory perspective with noninvasive positive pressure ventilatory support. Recommend conservative use of IV fluids in this patient. Recommend weaning supplemental oxygen to maintain saturations at or above 90%. Encourage incentive spirometer use and mobilize patient as tolerated. 2. NSTEMI/acute decompensated heart failure The patient has a known history of Takotsubo cardiomyopathy. She presented with an elevated BNP and troponin, concerning for demand ischemia and radiographic evidence of bilateral infiltrates concerning for pulmonary edema. Clinical concern is for acute decompensated heart failure. However, underlying pneumonia is another possibility. Nevertheless, the patient denies any sputum production. Follow-up echocardiogram completed on December 30 and again demonstrated an ejection fraction of 20%. Continue medical management per cardiology recommendations. 3. Melanotic stools The patient presented with melanotic stools and was noted to be positive for occult blood. Nevertheless, her hemoglobin has remained stable. Gastroenterology is currently following. The patient is not currently interested in pursuing inpatient endoscopic evaluation. This can likely be arranged on an outpatient basis. 4. E. coli UTI Continue antimicrobials as ordered. 5. Acute kidney injury Resolved. Most likely prerenal in etiology. Continue to monitor urine output for now. Avoid nephrotoxic medications. No current indication for renal replacement therapy. 6. History of hypertension/hyperlipidemia/paroxysmal atrial fibrillation/diabetes mellitus/obstructive sleep apnea Complicates care, management, recovery and prognosis. Continue PAP therapy throughout the day as needed along with nightly. This note was generated with [employer] software. It may contain incorrect words, spelling, and punctuation that were not noted in checking the note before signing. Subjective Subjective The patient was seen and examined at the bedside this morning. Events from the last 24 hours have been reviewed. The patient is currently afebrile, hemodynamically stable and maintaining appropriate oxygen saturations on 2 L/min via nasal cannula. The patient reported that she had an episode of diarrhea this morning when she was being moved in her bed. White blood cell count has improved to 12,000. Creatinine has normalized. Hemoglobin is stable at 12.2 g/dL. Objective Data Objective Data The patient's most recent lab work, culture data and imaging studies have all been personally reviewed. Surface echocardiogram demonstrated severe segmental systolic dysfunction with an ejection fraction of 20%. Respiratory viral panel was negative. MRSA screen was negative. Strep and urine Legionella antigens were negative. COVID, influenza and RSV PCR's were negative. Preliminary urine culture is demonstrating growth of E. coli. Vital Signs: Vital Signs Temp Pulse Resp BP Pulse Ox O2 Del Method O2 Flow Rate 97.1 F L 106 H 16 117/73 99 Nasal Cannula 2 01/02/24 09:20 01/02/24 09:20 01/02/24 09:20 01/02/24 09:20 01/02/24 09:20 01/02/24 09:20 01/02/24 09:20 FiO2 2 01/01/24 04:00 Oxygen Flow Rate (L/min) 2 Oxygen Delivery Method Nasal Cannula Weight: 105 lb 9.623 oz Body Mass Index (BMI) 17.6 Intake & Output: Intake and Output for Last 24 Hours 12/31/23 01/01/24 01/02/24 23:59 23:59 23:59 Intake Total 1471.33 / 1471.33 445 / 445 Output Total 795 / 795 882 / 882 300 / 300 Balance 676.33 / 676.33 -437 / -437 -300 / -300 Lab / Micro Data Attestation: I reviewed the patient's lab results. 01/02/24 05:21 01/02/24 05:21 Labs: Laboratory Results - last 24 hr 12/31/23 04:50: Diff Path Review Reviewed 01/01/24 11:36: POC Glucose 186 H 01/01/24 16:50: POC Glucose 225 H 01/01/24 23:36: POC Glucose 187 H 01/02/24 05:21: WBC 11.9 H, RBC 4.15 L, Hgb 12.2, Hct 39.7, MCV 95.7, MCH 29.4, MCHC 30.7 L, RDW Std Deviation 46.1 H, RDW Coeff of Gerhard 13.2, Plt Count 193, MPV 9.6, Immature Gran % (Auto) 0.400, Neut % (Auto) 70.7 H, Lymph % (Auto) 19.3, [place] % (Auto) 8.5, Eos % (Auto) 1.0, Baso % (Auto) 0.1, Absolute Neuts (auto) 8.4 H, Absolute Lymphs (auto) 2.31, Nucleated RBC % 0, Sodium 142, Potassium 4.6, Chloride 111 H, Carbon Dioxide 25.0, Anion Gap 6, BUN 31 H, Creatinine 1.01, Estim Creat Clear Calc 39.19, Est GFR (MDRD) Af Amer 70, Est GFR (MDRD) Non-Af 58 L, BUN/Creatinine Ratio 30.7 H, Glucose 181 H, Calcium 9.0 01/02/24 06:35: POC Glucose 166 H Micro: Microbiology 01/02/24 08:29 Stool Clostridioides difficile (PCR) - Final 12/30/23 20:00 Blood Culture (Wb) - Left Hand Blood Culture - Preliminary No growth in 48 hours. 12/30/23 21:10 Urine, Clean Catch Urine Culture - Final Presumptive E. coli 12/30/23 21:10 Urine Catheter - Catheter Legionella Antigen - Final 12/30/23 23:42 Nasal Secretion MRSA (PCR) - Final 12/31/23 00:00 Mucosa - Nasopharyngeal Respiratory Panel (PCR) - Final 12/30/23 20:00 Mucosa - Nose SARS-CoV-2, Influenza & RSV (PCR) - Final 12/30/23 18:50 Stool Stool Occult Blood (EARLE) - Final Occult Blood Positive Radiography Diagnostic Testing: Radiology Impression Chest/Abdomen/Pelvis CTA 12/30/23 18:52 IMPRESSION: Diffuse interlobular septal thickening consistent with pulmonary edema. Subtle focal hazy perihilar central right upper lobe groundglass airspace disease, likely associated pulmonary edema although other infectious etiology or even neoplastic process is not excluded. Trace bilateral pleural effusions with adjacent atelectasis. Recommend follow-up to resolution. Distal pulmonary artery branch vessel evaluation is suboptimal secondary to timing of contrast bolus as well as respiratory motion, however, there is no obvious large proximal pulmonary embolus. 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 2 cm hypoattenuating left anterior splenic lesion increased in size from previous year 1.2 cm. Recommend follow-up evaluation as neoplastic process is not excluded. New posterior left apical 13 mm nodule. Recommend comparison with previous imaging to document long-term stability versus follow-up evaluation as per Fleischner guidelines as neoplastic process is not excluded. No acute abdominal abnormality is identified. Electronically Signed: Mikal Gold MD at 21:59 EST , Echocardiogram 12/30/23 23:20 Interpretation Summary The left ventricular ejection fraction is 20 %. Normal LV size. Severe segmental systolic dysfunction (see wall motion). Contrast injection was performed. Ordering Physician: Kanwal Aguilar Performed By: Gladys Fenton RDCS and Student Chest X-Ray 12/31/23 05:40 IMPRESSION: Diffuse bilateral patchy airspace disease, to include pneumonia or pulmonary edema. Recommend follow-up to resolution. Electronically Signed: Mikal Gold MD at 6:20 EST , Physical Exam Const alert, oriented x3 and no apparent distress General Appearance: cooperative HEENT normocephalic, head/scalp atraumatic and moist oral mucous membranes Eyes PERRL, EOMs intact bilaterally and conjunctivae normal Neck supple General: trachea midline Chest inspection of chest normal Resp normal respiratory effort Auscultation: diminished lung sounds; Negative for rales, rhonchi or wheezes Cardio regular rate, regular rhythm, S1 normal heart sound and S2 normal heart sound GI normal to inspection, nondistended, normoactive bowel sounds Extremity no clubbing, cyanosis or edema Skin no rashes or lesions noted Neuro CN's II-XII intact bilaterally, moves all extremities and no focal motor deficits Psych Mood & Affect: flat affect Charges/Coding Visit Charges Inpatient E&M: 04906 Subs Hosp L2
[2024-01-02] MEDS: Ceftriaxone 1 GM/50 ML BAG IV (11:01)
[2024-01-02 11:44] LABS: Bedside Glucose 177 mg/dL (74-106)
[2024-01-02 16:33] LABS: Bedside Glucose 236 mg/dL (74-106)
[2024-01-02] MEDS: Simethicone 40MG/0.6ML Bottle 80 MG PO (21:47)
[2024-01-02] MEDS: 0.9% Saline Lock 10 ML Syringe IV (21:48)
[2024-01-03] MEDS: Acetaminophen 325 MG Tablet 650 MG PO ×2 (01:07→14:13)
[2024-01-03] MEDS: 0.9% Saline Lock 10 ML Syringe IV ×4 (01:08→14:05)
[2024-01-03] MEDS: Ondansetron 4 MG/2 ML Vial IV ×2 (01:08→14:05)
[2024-01-03 03:40] VITALS: BP 108/72; PULSE 99; RESP 18; TEMP 37.2; O2SAT 93
[2024-01-03 04:16] VITALS: BMI 17.5
[2024-01-03 06:16] LABS: Absolute Lymphocyte Count 2.06 X10^3/uL (0.83-4.51); Absolute Neutrophil Count 5.7 X10^3/uL (2.0-7.7); Basophil# 0.01 X10^3/uL; Basophil% 0.1 % (0-1); Eosinophil# 0.18 X10^3/uL; Eosinophils% 2.1 % (0-5); Hematocrit 35.5 % (37-47); Lymphocyte # 2.06 X10^3/ul (0.83-4.51); Lymphocyte % 24.1 % (19-41); Mean Corpuscular Hgb 28.9 pg (27.0-32.0); Mean Corpuscular Volume 93.4 fL (81-99); Mean Platelet Vol. 9.9 fl (6.2-12.0); Monocyte# 0.57 X10^3/uL; Monocyte% 6.7 % (0-10); NRBC Flagged by Analyzer 0 % (0-5); Neutrophil % 66.6 % (47-70); Platelet Count 221 K/mm3 (150-450); RBC Distribution Width CV 12.9 % (11.6-14.6); White Blood Count 8.6 K/mm3 (4.4-11.0)
[2024-01-03] MEDS: Insulin Lispro 100 UNIT/ML INSULN.PEN SC ×3 (06:43→16:16)
[2024-01-03] MEDS: Gabapentin 100 MG Capsule PO ×3 (06:43→20:33)
[2024-01-03 06:46] LABS: Anion Gap 7 (5-15); BUN 22 mg/dL (7-18); BUN/Creat Ratio 25.8 RATIO (10-20); Calcium,Total 8.5 mg/dL (8.5-10.1); Chloride 109 mmol/L (98-107); Creatinine, Serum 0.85 mg/dL (0.55-1.02); EST Glomerular Filtration Rate 70 mL/min (>60); Est Glom Filt Rate - Afr Amer 85 mL/min (>60); Estimated Creatinine Clearance 46.47 ml/min; Glucose 243 mg/dL (74-106); Potassium 3.2 mmol/L (3.5-5.1); Sodium Level 141 mmol/L (136-145)
[2024-01-03 07:05] LABS: Bedside Glucose 200 mg/dL (74-106)
--- NOTE | 2024-01-03 09:01 | PCM.PN.HOSP ---
Reason for Visit Reason for Visit: Diagnoses Acute on chronic systolic (congestive) heart failure (12/30/23) Heart failure, unspecified (12/30/23) Urinary tract infection, site not specified (12/30/23) Fever, unspecified (12/30/23) Other specified abnormal findings of blood chemistry (12/30/23) Subjective Subjective Patient still having hard time tolerating diet due to significant burning and epigastric pain and nausea, also feels somewhat bloated, does not report any diarrhea but has had a couple of bowel movements, feels better with Lopez out. Patient now amenable to endoscopy given significance of symptoms that are refractory to conservative management Objective Data Objective Data Vital Signs: Vital Signs Temp Pulse Resp BP Pulse Ox O2 Del Method O2 Flow Rate 98.9 F 99 18 108/72 93 Room Air 2 01/03/24 03:40 01/03/24 03:40 01/03/24 03:40 01/03/24 03:40 01/03/24 03:40 01/03/24 08:32 01/02/24 15:37 FiO2 2 01/01/24 04:00 Oxygen Flow Rate (L/min) 2 Oxygen Delivery Method Room Air Weight: 47.8 kg Body Mass Index (BMI) 17.5 Intake & Output: Intake and Output for Last 24 Hours 01/01/24 01/02/24 01/03/24 23:59 23:59 23:59 Intake Total 445 / 445 905 / 905 220 / 220 Output Total 882 / 882 1265 / 1265 300 / 300 Balance -437 / -437 -360 / -360 -80 / -80 Lab / Micro Data 01/03/24 05:48 01/03/24 05:48 Labs: Laboratory Results - last 24 hr 01/02/24 11:17: POC Glucose 177 H 01/02/24 16:09: POC Glucose 236 H 01/03/24 05:48: WBC 8.6, RBC 3.80 L, Hgb 11.0 L, Hct 35.5 L, MCV 93.4, MCH 28.9, MCHC 31.0 L, RDW Std Deviation 44.0 H, RDW Coeff of Gerhard 12.9, Plt Count 221, MPV 9.9, Immature Gran % (Auto) 0.400, Neut % (Auto) 66.6, Lymph % (Auto) 24.1, [place] % (Auto) 6.7, Eos % (Auto) 2.1, Baso % (Auto) 0.1, Absolute Neuts (auto) 5.7, Absolute Lymphs (auto) 2.06, Nucleated RBC % 0, Sodium 141, Potassium 3.2 L, Chloride 109 H, Carbon Dioxide 25.0, Anion Gap 7, BUN 22 H, Creatinine 0.85, Estim Creat Clear Calc 46.47, Est GFR (MDRD) Af Amer 85, Est GFR (MDRD) Non-Af 70, BUN/Creatinine Ratio 25.8 H, Glucose 243 H, Calcium 8.5 01/03/24 06:41: POC Glucose 200 H Micro: Microbiology 01/02/24 08:29 Stool Enteric Bacteriology - Final 01/02/24 08:29 Stool C. difficile GDH Antigen & Toxins - Final 01/02/24 08:29 Stool Clostridioides difficile (PCR) - Final 12/30/23 20:00 Blood Culture (Wb) - Left Hand Blood Culture - Preliminary No growth in 48 hours. 12/30/23 21:10 Urine, Clean Catch Urine Culture - Final Presumptive E. coli 12/30/23 21:10 Urine Catheter - Catheter Legionella Antigen - Final 12/30/23 23:42 Nasal Secretion MRSA (PCR) - Final 12/31/23 00:00 Mucosa - Nasopharyngeal Respiratory Panel (PCR) - Final 12/30/23 20:00 Mucosa - Nose SARS-CoV-2, Influenza & RSV (PCR) - Final 12/30/23 18:50 Stool Stool Occult Blood (EARLE) - Final Occult Blood Positive Physical Exam Narrative General: Alert, no apparent distress HEENT: Atraumatic, normocephalic Eyes: Anicteric, normal conjunctiva, extraocular movements grossly intact Neck: Supple Respiratory: No significant rhonchi or wheezes, no increased work of breathing Cardiovascular: Regular rate and rhythm GI: A little bit bloated but overall soft with no rebound, guarding, rigidity but does have some tenderness in the epigastric region Extremities: No significant pitting edema Musculoskeletal: Moving all extremities Neuro: No overt focal neurological deficits Skin: No rashes appreciated Psych: Cooperative Assessment & Plan Assessment/Plan (1) Febrile: PLAN: Plan #Nausea/Emesis/Diarrhea/Melena -Started roughly 3 days prior to admission -Patient with hemoglobin of 14.8 on presentation, 13.2 today -Did have FOBT which was positive in the ED -On PPI drip -GI was consulted -Patient is n.p.o. -Stool studies ordered but not yet collected -12/31: Stool studies canceled as patient has not had any more diarrhea, reports she felt a little bit of abdominal discomfort and nausea last night but is feeling better today. Initial plan was for endoscopy however patient reports that she is feeling better and given stability of her labs she would prefer to not undergo endoscopy at this time but will consider if she had any more blood in her stool or downtrending hemoglobin or intractable GI symptoms -01/01: Patient on clear liquids due to some more nausea but is improving and is willing to advance, will advance to full, additionally was able to provide stool sample which showed C. difficile PCR but the C. difficile toxin was negative. Enteric panel was negative. Hemoglobin slightly lower today at 12.2. Patient does have some epigastric burning which she reports is off-and-on and also happens at home, she is on PPI, will add simethicone. Will likely need outpatient evaluation and possible scope, patient had refused endoscopy yesterday, this was discussed with patient and family member at bedside and that she will need to follow-up outpatient and they were agreeable -01/02: Had been attempting to advance diet however patient has significant epigastric burning and pain with food that is not improving despite IV PPI and simethicone, additionally hemoglobin dropped 2 g in the past 2 days, patient is not noted overt blood per rectum since the melena prior to admission however given her symptoms and drop in hemoglobin despite not receiving fluids this is concerning for possible GI pathology. Discussed with patient and patient's daughter, she initially refused endoscopy as she thought she was feeling better overall however given her current symptoms with difficulty tolerating p.o. and significant nausea and pain she is now agreeable. Discussed with Dr. Huang, patient made n.p.o. at midnight # Anemia -On presentation patient had endorsed some melena her to arrival and her FOBT was positive -GI consulted and plan was for upper endoscopy however patient refused -For several days her hemoglobin was stable and she felt her symptoms were improving however given increasing difficulty while trying to at [place] diet with epigastric pain and burning in hemoglobin that was 13.2 on 11/19, yesterday 12.2, today 11 there is concern this could be GI in nature -Discussed with Dr. Huang, patient made n.p.o. at midnight for likely endoscopy tomorrow # Sepsis secondary to E. coli UTI -Patient with leukocytosis up to 27.8, patient febrile with temperatures up to 101 has been tachycardic, initially heart rate 127 with respiratory rate that increased to the 30s lactic acid of 3.2 and several systolic blood pressures less than 90. Additionally patient with DURAN on presentation with a baseline creatinine around 1 and it was 1.96 on arrival also acute encephalopathy on admission which was noted by admitting physician -UA with negative nitrite, 500 leuk esterase with 50-100 white blood cells and 4+ bacteria and preliminarily growing E. coli -CT chest and chest x-ray with pulmonary edema versus infectious process -Urine antigens negative -Viral respiratory panel and COVID-negative -Urine and blood cultures pending -Patient on broad-spectrum antibiotics with Zosyn -Stool studies ordered but not yet collected -12/31: Stool studies not yet able to be obtained. White blood cell count is downtrending, still slightly tachycardic but blood pressure stable, urine culture with pansensitive E. coli, suspect this is the cause of her sepsis. Will de-escalate to Rocephin. blood culture still pending -01/01: Patient on Rocephin, patient sepsis due to her E. 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 -Patient on BiPAP with improving saturations, developed the significant respiratory distress after fluid resuscitation for her suspected sepsis -BNP 3619 -CXR pulmonary edema versus infectious process -Patient initially not started on IV Lasix given her sepsis, also not given full sepsis fluids due to her low EF and flash pulmonary edema, -Last echo 09/17/2023 with EF of 20% and severe segmental systolic dysfunction, reportedly consistent with Takotsubo -Repeat echo was ordered -Daily weights, I's and O's -12/31: Respiratory status improved and patient only on 2 L O2 with sats in the mid to high 90s, did not require Lasix. Repeat echo again demonstrated EF of 20% with severe segmental systolic dysfunction. Continue to monitor weights and I's and O's -01/01: Still requiring 2 L of O2, wean as tolerated -01/02: On room air, continue to monitor weights, does not appear to be floridly overloaded and respiratory status has been improving, may need walk test prior to discharge #Type 2 diabetes mellitus -Glucose checks and sliding scale insulin -Hold home glipizide -12/31: Remains elevated, increase sliding scale factor, patient still NPO. May need to schedule Premeal or long-acting depending on glucoses moving forward -01/01: Glucose only 166 this a.m. and patient still with fairly poor p.o. intake, continue to monitor closely -01/02: Glucose 200 this a.m., suspect this may increase as patient has diet advanced, continue to monitor closely # DURAN -Creatinine on arrival 1.96 with a baseline closer to 1 -Repeat this a.m. 1.66 -And CTA chest abdomen pelvis patient did have a near complete obstructing right renal artery lesion just beyond the origin which was reported to be stable -12/31: Creatinine is continued to downtrend, down to 1.32 today -01/01: Creatinine continues to improve, creatinine 1.01 today -01/02: Creatinine 0.85 today, significantly improved, suspect this is probably her baseline #GERD -Patient has not been taking her PPI, presently on PPI drip -12/31: Continue PPI as above -01/01: Patient refused endoscopy yesterday, continuing PPI at this time, starting simethicone -01/02: Changing PPI to oral, continue simethicone, advance diet #Hypertension -Patient has not been taking her carvedilol as she has been out, hold lisinopril given patient's sepsis and DURAN -12/31: Resume low-dose carvedilol per cardiology recommendations, resume AC when at lower dose when BP tolerates -01/01: Continue the low-dose carvedilol, BP not yet high enough to reinstitute LEYDI -01/02: Tolerating carvedilol, given patient may have sedation tomorrow for endoscopy and is not hypertensive we will hold a.m. carvedilol Chronic medical problems: #Depression/anxiety -Continue home medications # Abnormal CT imaging of chest and abdomen -Right upper lobe groundglass airspace disease likely pulmonary edema cannot exclude infectious etiology or neoplastic process and recommended follow-up to resolution recommended -Ultimately need further imaging -Additionally new posterior left apical 13 mm nodule which will need compared to previous imaging to document long-term stability versus follow-up evaluation per Fleischner guidelines -Patient also had 2 cm hypoattenuating left anterior splenic lesion which increased from 1.2 cm to previous year and is also recommended that this have repeat follow-up evaluation Problems no longer being actively addressed: #Elevated troponin -Troponin 2800, initially down trended to 2500 and is back up to 3000 -Suspect that this is secondary to either fluid overload or sepsis or combination of both -Patient with repeat echo pending -Not presently on heparin drip given no chest pain but does have significant elevation in her troponins and BNP -Given this and patient's very complex presentation and history cardiology consult placed on admission -12/31: Repeat echo again demonstrated EF of 20% with severe segmental systolic dysfunction. Cardiology evaluated and suspects elevated troponin is secondary to underlying medical issues on top of her known obstructive CAD and a small diameter vessel which could explain the degree of troponin elevation. It was advised to resume carvedilol, started at low-dose. Resume LEYDI as tolerated -01/01: Continue Coreg, BP still borderline so we will hold off on LEYDI #DVT ppx: SCDs Zahra Palacio MD Time spent in the patient's overall evaluation, decision-making process, review of diagnostic data, adjustment of management, discussion with other providers, nursing and ancillary staff involved in patient's care documentation, 52 Minutes Charges/Coding Visit Charges Inpatient E&M: 30375 Subs Hosp L3
[2024-01-03 09:06] VITALS: BP 122/76; PULSE 96; RESP 16; TEMP 36.6; O2SAT 98
[2024-01-03] MEDS: Simethicone 40MG/0.6ML Bottle 80 MG PO ×4 (09:13→20:28)
[2024-01-03] MEDS: Atorvastatin Calcium 20 MG Tablet PO (09:16)
[2024-01-03] MEDS: Nystatin Powder 15gm Bottle 1 APPLIC TOPICAL ×2 (09:16→20:31)
[2024-01-03] MEDS: busPIRone 15 MG TABLET PO ×2 (09:16→20:29)
[2024-01-03] MEDS: Carvedilol 3.125 MG TABLET PO ×2 (09:16→20:29)
[2024-01-03] MEDS: Fluoxetine HCl 40 MG CAPSULE PO ×2 (09:17→20:29)
[2024-01-03] MEDS: Pantoprazole Sodium 40 MG Tablet PO (09:58)
[2024-01-03 11:19] LABS: Bedside Glucose 263 mg/dL (74-106)
[2024-01-03] MEDS: Potassium Chloride Oral Soln 20 MEQ/15 ML UDC 40 MEQ PO (12:20)
[2024-01-03] MEDS: Ceftriaxone 1 GM/50 ML BAG IV (12:24)
[2024-01-03 13:34] LABS: Lipase 30 U/L (13-75)
[2024-01-03 15:01] VITALS: BP 110/67; PULSE 102; RESP 18; TEMP 36.6; O2SAT 94
--- NOTE | 2024-01-03 15:12 | CHAPLAIN ---
Type of Pastoral Visit _x__ Initial Visit ___ Follow-up Visit ___ On-call Visit ___ General Patient Visit ___ Spiritual Assessment ___ Family Conference ___ Bereavement ___ Rapid Response ___ Code Blue ___ Other (describe below) Pastoral Care Referral From _x__ Patient ___ Family ___ Nurse ___ Physician ___ Neurology Manager ___ Travel Ticketing Reviewer ___ Other (describe below) Sacrament/Intervention _x__ Active listening ___ Anointing ___ Restoration ___ Bereavement ___ Communion _x__ Adrianna exploration ___ ___ Life review _x__ Prayer ___ Reconciliation ___ Sacrament of Sick ___ Supportive presence ___ Wedding ___ Other (describe below) Pastoral Comments patient is in the room with her father and with her granddaughter; pt is talkative and expressive about her adrianna in God; pt explains some of the health issues happening currently and her disappointment of being in the hospital often this year; pt welcomes presence and prayer for support; offer of support to other family members as well
[2024-01-03 16:37] LABS: Bedside Glucose 179 mg/dL (74-106)
[2024-01-03] MEDS: Glucerna Shake 120 ML LIQUID PO (18:40)
[2024-01-03 19:05] VITALS: PULSE 100; RESP 18
[2024-01-03] MEDS: Budesonide Respules 0.5 MG/2 ML AMPUL.NEB. INHALATION (19:05)
[2024-01-03 20:09] VITALS: BMI 25.8
[2024-01-03] MEDS: Pantoprazole Sodium 40 MG in 0.9% Normal Saline (100mL MB+) 100 ML 330 MG IV (20:29)
[2024-01-03] MEDS: proCHLORPERazine 10 MG/2 ML Vial 5 MG IV (20:30)
[2024-01-03 22:00] VITALS: BP 106/62; PULSE 96; RESP 18; TEMP 35.9; O2SAT 96
--- NOTE | 2024-01-03 23:00 | CPS ---
Pt refuses BIPAP.
[2024-01-04] VITALS (13 sets, daily range): BP systolic 102–135; BP diastolic 55–84; PULSE 81–98; RESP 14–18; TEMP 36–37; O2SAT 92–98; BMI 26.6
--- NOTE | 2024-01-04 05:55 | EKG12_ITS ---
Test Reason : PRE-OP Blood Pressure : */* mmHG Vent. Rate : 92 BPM Atrial Rate : 92 BPM P-R Int : 164 ms QRS Dur : 88 ms QT Int : 424 ms P-R-T Axes : 63 -35 264 degrees QTcB Int : 524 ms Normal sinus rhythm Left axis deviation ST & T wave abnormality, consider inferior ischemia ST & T wave abnormality, consider anterolateral ischemia Prolonged QT Abnormal ECG When compared with ECG of 30-Dec-2023 23:20, Left bundle branch block is no longer Present Confirmed by DOMITILA DOW ([id number]), editorial assistant WILFRID SÁNCHEZ ([id number]) on 01/07/2024 6:17:06 AM Referred By: CHRIS Confirmed By: DOMITILA DOW
[2024-01-04] MEDS: Ondansetron 4 MG/2 ML Vial IV (06:03)
[2024-01-04] MEDS: Gabapentin 100 MG Capsule PO ×3 (06:03→22:23)
[2024-01-04 06:47] LABS: Bedside Glucose 201 mg/dL (74-106)
[2024-01-04 07:29] LABS: Absolute Lymphocyte Count 2.34 X10^3/uL (0.83-4.51); Basophil# 0.02 X10^3/uL; Basophil% 0.2 % (0-1); Eosinophil# 0.25 X10^3/uL; Hematocrit 38.2 % (37-47); Hemoglobin 11.9 g/dL (12.0-15.0); Lymphocyte # 2.34 X10^3/ul (0.83-4.51); Lymphocyte % 28.4 % (19-41); Mean Corp Hgb Conc 31.2 g/dL (32-36); Mean Corpuscular Volume 92.9 fL (81-99); Monocyte% 7.3 % (0-10); NRBC Flagged by Analyzer 0 % (0-5); Neutrophil # 5.01 X10^3/uL (2.7-7.7); Neutrophil % 60.7 % (47-70); Platelet Count 239 K/mm3 (150-450); RBC Distribution Width CV 13.1 % (11.6-14.6); RBC Distribution Width SD 43.8 fl (35.1-43.9); Red Blood Count 4.11 M/mm3 (4.2-5.4); White Blood Count 8.3 K/mm3 (4.4-11.0)
[2024-01-04 08:00] LABS: AST(SGOT) 16 U/L (15-37); Alanine Aminotransfer ALT/SGPT 20 U/L (13-56); Albumin, Serum 3.2 g/dL (3.2-5.0); Alkaline Phosphatase 64 U/L (45-117); Anion Gap 6 (5-15); BUN 17 mg/dL (7-18); BUN/Creat Ratio 21.2 RATIO (10-20); Calcium,Total 8.7 mg/dL (8.5-10.1); Chloride 110 mmol/L (98-107); EST Glomerular Filtration Rate 75 mL/min (>60); Est Glom Filt Rate - Afr Amer 91 mL/min (>60); Estimated Creatinine Clearance 65.41 ml/min; Globulin 3.1 g/dL (2.2-4.2); Glucose 206 mg/dL (74-106); Potassium 3.6 mmol/L (3.5-5.1); Protein, Total 6.3 g/dL (6.4-8.2); Sodium Level 140 mmol/L (136-145)
[2024-01-04] MEDS: Pantoprazole Sodium 40 MG in 0.9% Normal Saline (100mL MB+) 100 ML 330 MG IV ×2 (09:16→22:14)
[2024-01-04] MEDS: 0.9% Saline Lock 10 ML Syringe IV ×2 (09:17→22:14)
[2024-01-04] MEDS: Ceftriaxone 1 GM/50 ML BAG IV (09:42)
--- NOTE | 2024-01-04 10:54 | PCM.PRE.AN2 ---
ASA Classification* ASA Classification ASA Classification: 3 Assessment & Plan Anesthesia* Anesthesia Assessment Anesthesia Assessment: Discussed sedation and/or anesthesia options, risks, benefits, and alternatives with patient/parents/legal guardian/POA. Questions invited. The patient/parents/legal guardian/POA seems to understand and agrees to proceed with anesthesia plan. Reviewed the physical assessment, medical history, allergy history and patient home medications list prior to surgery/procedure/anesthetic and documented any changes. Performed airway and anesthesia risk assessments. Anesthesia Type Anesthesia Type: MAC History Source History Obtained from:: Patient and Chart Anesthesia Focused Assessment* Temperature: 98.4 F Pulse Rate: 84 Blood Pressure: 111/63 Respiratory Rate: 16 Pulse Ox: 95 Oxygen Delivery Method: Room Air Fraction of Inspired Oxygen (FIO2): 2 Airway Assessment Mouth opens: >3 cm Mallampati Score: IV Teeth Condition: Missing (Patient is edentulous.) Neck Range of motion (ROM): Limited ROM (Decreased extension) Pertinent Findings ECHO Pertinent Findings:: December 31, 2023. Ejection fraction is 20%. Normal valves. Focused Labs Anesthesia Preop lab: CBC WBC 8.3 K/mm3 (4.4-11.0) 01/04/24 06:52 RBC 4.11 M/mm3 (4.2-5.4) L 01/04/24 06:52 Hgb 11.9 g/dL (12.0-15.0) L 01/04/24 06:52 Hct 38.2 % (37-47) 01/04/24 06:52 Plt Count 239 K/mm3 (150-450) 01/04/24 06:52 CHEMISTRY Potassium 3.6 mmol/L (3.5-5.1) 01/04/24 06:52 Sodium 140 mmol/L (136-145) 01/04/24 06:52 Magnesium 3.5 mg/dL (1.6-2.6) H 12/31/23 04:50 Phosphorus 2.3 mg/dL (2.5-4.9) L 04/17/23 03:53 BUN 17 mg/dL (7-18) 01/04/24 06:52 Creatinine 0.80 mg/dL (0.55-1.02) 01/04/24 06:52 Glucose 206 mg/dL (74-106) H 01/04/24 06:52 POC Glucose 201 mg/dL (74-106) H 01/04/24 06:02 TSH 2.700 uIU/mL (0.358-3.740) 12/31/23 04:50 COAG PT 14.4 SECONDS (11.7-14.9) 12/30/23 18:40 Pre-Assessment Diagnosis/Proposed Procedure Planned Operative Procedure(s): Esophagogastroduodenoscopy Anesthesia History Anesthesia History - mixing machine tender cork rod: Anesthesia History - mixing machine tender cork rod Hx Hospitalization No 03/06/19 19:24 Any Problems With Anesthesia No 01/04/24 09:25 Cholinesterase deficiency No 01/04/24 09:25 You/Your Family Experience No 01/04/24 09:25 fever (hyperthermia) with Relationship Recent Exposure to Contagious No 01/04/24 09:25 Disease Does patient have nerve No 01/04/24 09:25 stimulator Patient instructed to have device shut off --Does patient have Pacemaker No 01/04/24 09:21 or ICD? When Was Last Pacemaker Check QUESTION #4 FULL TEXT: You/Your Family Experience fever (hyperthermia) with Anesthesia Last Oral Intake Last Oral intake: Last Oral Intake NPO since 00:01 01/04/24 09:21 Meds taken in AM with sips of No 01/04/24 09:21 water? Meds patient instructed to take am of surgery PONV PONV - mixing machine tender cork rod: PONV - mixing machine tender cork rod Female HX of Motion Sickness HX of N/V After Surgery Non-Smoker Duration of Surgery greater than 60 minutes Number of Risk Factors PONV Score Height & Weight Height & Weight: Anesthesia: Height & Weight Height 5 ft 5 in 01/04/24 09:21 Weight: 72.8 kg 01/04/24 09:21 Body Mass Index (BMI) 26.6 01/04/24 09:21 Respiratory Assessment Respiratory Assessment - mixing machine tender cork rod: Respiratory Tract Infection Hx - mixing machine tender cork rod Hx Respiratory Tract Infection No 01/04/24 09:25 STOP Sleep Apnea STOP Sleep Apnea - mixing machine tender cork rod: STOP Sleep Apnea - mixing machine tender cork rod Hx Hypertension Yes 12/31/23 14:36 Hx Sleep Apnea Yes 12/30/23 23:21 CPAP No 12/30/23 23:21 BIPAP No 12/30/23 23:21 Do you snore loudly (louder than talking or can be heard Do you often feel tired/ fatigued/ sleepy during daytime? Has anyone observed you stop breathing during sleep? STOP Results Positive 12/30/23 23:21 QUESTION #5 FULL TEXT : Do you snore loudly (louder than talking or can be heard through closed doors)? Tobacco Use History Tobacco Use History - mixing machine tender cork rod: Tobacco Use History - mixing machine tender cork rod Tobacco Use Cigarettes 08/09/22 17:00 Smoking Status Former smoker 12/30/23 23:21 Hx Tobacco Use No 12/30/23 23:21 Years Smoking Packs Smoked per Day Smoking Cessation Date was No - quit smoking greater 12/30/23 23:21 within the last 15 years than 15 years ago Hx Smoking Cessation Date 02/12/86 12/30/23 23:21 Hx Smoking Cessation No 12/30/23 23:21 Counseling Hematologic Medial History Hematologic Hx - mixing machine tender cork rod: Hematologic Medical Hx - grocery shopper Hx of Blood Transfusion Yes 12/30/23 23:21 Hx of Transfusion in last 3 No 12/30/23 23:21 Months Date of Last Transfusion (if within last 3 months) Ever experience any problems No 12/30/23 23:21 with transfusion(s)? Specify any problems Hx of Preganancy in last 3 No 12/30/23 23:21 Months Nurse Filling Out Transfusion [id number] 12/30/23 23:21 & Questions: Date: 12/30/23 12/30/23 23:21 Time: 23:39 12/30/23 23:21 Patient unable to answer at this time (ie. confused, unrespo /Reproduction History /Reproductive History - mixing machine tender cork rod: /Reproductive Hx- mixing machine tender cork rod Hx Now No 01/04/24 09:25 Gestational Age (in weeks): EDC: Hx Hx Para Hx Section SAB No 01/04/24 09:25 Active Medications Active Medications: Current Medications Generic Name Dose Route Start Last Admin Trade Name Freq PRN Reason Stop Dose Admin Acetaminophen 650 mg 12/30/23 23:20 01/03/24 14:13 Acetaminophen 325 Mg Tablet PO 650 mg Q4H PRN PRN Administration Fever, pain 1-11/21 Albuterol Sulfate 2.5 mg 12/30/23 23:20 Albuterol 2.5 Mg/3 Ml Vial.Neb. INHALATION Q2H PRN PRN Dyspnea, wheezing Atorvastatin Calcium 20 mg 12/31/23 10:00 01/03/24 09:16 Atorvastatin Calcium 20 Mg Tablet PO 20 mg DAILY REI Administration Budesonide 0.5 mg 12/30/23 23:20 01/03/24 19:05 Budesonide Respules 0.5 Mg/2 Ml Ampul.Neb. INHALATION 0.5 mg BID.RT REI Administration Buspirone HCl 15 mg 12/31/23 10:00 01/03/24 20:29 Buspirone 15 Mg Tablet PO 15 mg BID REI Administration Carvedilol 3.125 mg 12/31/23 22:00 01/03/24 20:29 Carvedilol 3.125 Mg Tablet PO 3.125 mg BID REI Administration Protocol Fluoxetine HCl 40 mg 12/31/23 10:00 01/03/24 20:29 Fluoxetine Hcl 40 Mg Capsule PO 40 mg BID REI Administration Gabapentin 100 mg 12/31/23 06:00 01/04/24 06:03 Gabapentin 100 Mg Capsule PO 100 mg Q8 REI Administration Glucagon 1 mg 12/30/23 23:20 Glucagon 1 Mg/Ml Syringe IM X1 PRN HYPOGLYCEMIA Protocol Guaifenesin 10 ml 12/30/23 23:20 Guaifenesin 10 Ml Udc (200mg/10ml) PO Q4H PRN PRN COUGH Dextrose 250 mls @ 0 mls/hr 12/30/23 23:20 Dextrose 10%-Water IV .Q0M PRN HYPOGLYCEMIA Protocol As Directed Sodium Chloride 500 mls @ 15 mls/hr 12/30/23 23:37 IV .[id number] PRN Saline Flush Sodium Chloride 500 mls @ 15 mls/hr 12/30/23 23:37 IV .[id number] PRN Additional IVPB Infusion Ceftriaxone Sodium 1 gm in 50 mls @ 100 mls/hr 01/02/24 10:00 01/04/24 09:42 Rocephin IV 100 mls/hr Q24 REI Administration Pantoprazole Sodium 40 mg/ 110 mls @ 330 mls/hr 01/03/24 22:00 01/04/24 09:41 Sodium Chloride IV Infused Q12 REI Infusion Insulin Human Lispro 0 unit 01/02/24 11:00 01/04/24 06:20 Insulin Lispro 100 Unit/Ml Insuln.Pen SC Not Given TIDAC [facility] Protocol Melatonin 3 mg 12/30/23 23:20 Melatonin 3 Mg Tablet PO QHS PRN PRN INSOMNIA Nutritional Formula (Lactose Free) 120 ml 01/03/24 18:00 01/04/24 09:18 Glucerna Shake 120 Ml Liquid PO Not Given 4X/DAY REI Nystatin 1 applic 12/31/23 22:00 01/03/24 20:31 Nystatin Powder 15gm Bottle TOPICAL 1 applic BID [facility] Administration Protocol Ondansetron HCl 4 mg 12/30/23 23:20 01/04/24 06:03 Ondansetron 4 Mg/2 Ml Vial IV 4 mg Q8H PRN PRN Administration NAUSEA/VOMITING Prochlorperazine Edisylate 5 mg 12/30/23 23:20 01/03/24 20:30 Prochlorperazine 10 Mg/2 Ml Vial IV 5 mg Q4H PRN PRN Administration Breakthrough Nausea/Vomiting Simethicone 80 mg 01/02/24 22:00 01/04/24 09:17 Simethicone 40mg/0.6ml Bottle PO Not Given [facility] Sodium Chloride 10 - 40 ml 12/30/23 23:37 01/04/24 09:17 0.9% Saline Lock 10 Ml Syringe IV 20 ml UD PRN Administration SALINE FLUSH PFSH Medical History Non-ST elevation [place] (NSTEMI) Hiatal hernia Irritable bowel Back pain due to injury Restless legs Injury of head and neck High cholesterol Hearing loss, right Bipolar disorder Depression Anxiety GERD (gastroesophageal reflux disease) Former smoker Sleep apnea Atrial fibrillation Migraines Dementia Closed intertrochanteric fracture of left hip Psoriatic arthritis Nonobstructive atherosclerosis of coronary artery Obesity Type 2 diabetes mellitus Takotsubo syndrome Hyperlipidemia Essential (primary) hypertension NSTEMI (non-ST elevated myocardial infarction) (01/06/18) Home Medications ?Medication ?Instructions ?Recorded ?Last Taken ?Type alendronate 70 mg tablet 70 mg PO SA osteoporosis 01/06/18 Unknown History buspirone 7.5 mg tablet 15 mg PO BID anxiety 01/06/18 Unknown History fluoxetine 40 mg capsule 40 mg PO BID anxiety 01/06/18 Unknown History glipizide 5 mg tablet 10 mg PO DAILY antidiabetic 01/06/18 Unknown History ergocalciferol (vitamin D2) 1,250 50,000 unit PO .COMPLEX supplement 02/12/19 Unknown History mcg (50,000 unit) capsule lisinopril 20 mg tablet 20 mg PO DAILY #30 tabs 02/15/19 Unknown Rx gabapentin 100 mg capsule 100 mg PO Q8H pain 04/14/23 01/04/24 History meloxicam 7.5 mg tablet 7.5 mg PO DAILY pain 04/14/23 Unknown History ondansetron 4 mg disintegrating 4 mg PO TID PRN nausea and 04/14/23 Unknown Rx tablet vomiting #21 tabs oxybutynin chloride 10 mg 20 mg PO DAILY bladder 04/14/23 Unknown History tablet,extended release 24 hr simvastatin 40 mg tablet 40 mg PO DAILY cholesterol 04/14/23 Unknown History turmeric 1 cap PO DAILY supplement 04/14/23 Unknown History aspirin 81 mg tablet,delayed 81 mg PO BREAKFAST 30 days #30 tabs 09/20/23 Unknown Rx release pantoprazole 40 mg tablet,delayed 40 mg PO BID #60 tabs 09/20/23 Unknown Rx release (Protonix) carvedilol 6.25 mg tablet 6.25 mg PO BID Awaiting mail in 10/18/23 Unknown Rx RX, pt is out of med #60 tabs methocarbamol 500 mg tablet 1,000 mg PO BID 12/30/23 Unknown History Allergy/AdvReac Type Severity Reaction Status Date / Time morphine Allergy Mild confusion Verified 01/04/24 10:33 codeine Allergy Itching Verified 01/04/24 10:33 fentanyl AdvReac confusion Verified 01/04/24 10:33 naproxen AdvReac Other Verified 01/04/24 10:33 Family History Mother Cancer skin Father Cancer prostate Surgical History History of back surgery History of carpal tunnel release of both wrists History of hysterectomy History of left heart catheterization (01/07/18) Social History household members: spouse Smoking Status: Former smoker how long ago did patient quit smokin years ago alcohol intake: never substance use type: does not use caffeine: Yes Type: carbonated beverages Number of servings: 1 Review of Systems (Anesthesia) ROS Narrative System reviewed and no additional complaints, except as documented.
--- NOTE | 2024-01-04 11:18 | PN.HOSP_ITS ---
Reason for Visit Reason for Visit: Diagnoses Acute on chronic systolic (congestive) heart failure (12/30/23) Heart failure, unspecified (12/30/23) Urinary tract infection, site not specified (12/30/23) Fever, unspecified (12/30/23) Other specified abnormal findings of blood chemistry (12/30/23) Subjective Subjective Patient seen preendoscopy and reports still having difficulty tolerating p.o. due to burning in her stomach which then causes nausea, denies any chest heaviness or shortness of breath, still having some bowel movements without overt diarrhea but reports there is some yellow mixed in, no other new acute complaints Objective Data Objective Data Vital Signs: Vital Signs Temp Pulse Resp BP Pulse Ox O2 Del Method O2 Flow Rate 98.4 F 84 16 111/63 95 Room Air 2 01/04/24 11:04 01/04/24 11:04 01/04/24 11:04 01/04/24 11:04 01/04/24 11:04 01/04/24 11:04 01/04/24 11:04 FiO2 2 01/04/24 11:04 Oxygen Flow Rate (L/min) 2 Oxygen Delivery Method Room Air Weight: 72.8 kg Body Mass Index (BMI) 26.6 Intake & Output: Intake and Output for Last 24 Hours 01/02/24 01/03/24 01/04/24 23:59 23:59 23:59 Intake Total 905 / 905 1150 / 1390 350 / 350 Output Total 1265 / 1265 300 / 300 Balance -360 / -360 850 / 1090 350 / 350 Lab / Micro Data 01/04/24 06:52 01/04/24 06:52 Labs: Laboratory Results - last 24 hr 01/03/24 05:48: Lipase 30 01/03/24 10:57: POC Glucose 263 H 01/03/24 16:16: POC Glucose 179 H 01/04/24 06:02: POC Glucose 201 H 01/04/24 06:52: WBC 8.3, RBC 4.11 L, Hgb 11.9 L, Hct 38.2, MCV 92.9, MCH 29.0, M CHC 31.2 L, RDW Std Deviation 43.8, RDW Coeff of Gerhard 13.1, Plt Count 239, MPV 10.0, Immature Gran % (Auto) 0.400, Neut % (Auto) 60.7, Lymph % (Auto) 28.4, Lamar % (Auto) 7.3, Eos % (Auto) 3.0, Baso % (Auto) 0.2, Absolute Neuts (auto) 5.0, Absolute Lymphs (auto) 2.34, Nucleated RBC % 0, Sodium 140, Potassium 3.6, Chloride 110 H, Carbon Dioxide 25.0, Anion Gap 6, BUN 17, Creatinine 0.80, Estim Creat Clear Calc 65.41, Est GFR (MDRD) Af Amer 91, Est GFR (MDRD) Non-Af 75, B UN/Creatinine Ratio 21.2 H, Glucose 206 H, Calcium 8.7, Total Bilirubin 0.50, AST 16, ALT 20, Alkaline Phosphatase 64, Total Protein 6.3 L, Albumin 3.2, Globulin 3.1, Albumin/Globulin Ratio 1.0 01/04/24 07:30: Blood Type O POSITIVE, Antibody Screen NEGATIVE Micro: Microbiology 01/02/24 08:29 Stool Enteric Bacteriology - Final 01/02/24 08:29 Stool C. difficile GDH Antigen & Toxins - Final 01/02/24 08:29 Stool Clostridioides difficile (PCR) - Final 12/30/23 20:00 Blood Culture (Wb) - Left Hand Blood Culture - Preliminary No growth in 48 hours. 12/30/23 21:10 Urine, Clean Catch Urine Culture - Final Presumptive E. coli 12/30/23 21:10 Urine Catheter - Catheter Legionella Antigen - Final 12/30/23 23:42 Nasal Secretion MRSA (PCR) - Final 12/31/23 00:00 Mucosa - Nasopharyngeal Respiratory Panel (PCR) - Final 12/30/23 20:00 Mucosa - Nose SARS-CoV-2, Influenza & RSV (PCR) - Final 12/30/23 18:50 Stool Stool Occult Blood (EARLE) - Final Occult Blood Positive Physical Exam Narrative General: Alert, no apparent distress HEENT: Atraumatic, normocephalic Eyes: Anicteric, normal conjunctiva, extraocular movements grossly intact Neck: Supple Respiratory: No significant rhonchi or wheezes, no increased work of breathing Cardiovascular: Regular rate and rhythm GI: Still with tenderness in epigastric region Extremities: No significant pitting edema Musculoskeletal: Moving all extremities Neuro: No overt focal neurological deficits Skin: No rashes appreciated Psych: Cooperative Assessment & Plan Assessment/Plan (1) Febrile: PLAN: Plan #Nausea/Emesis/Diarrhea-found to have LA grade D reflux esophagitis with bleeding, nonbleeding gastric and duodenal ulcers -Started roughly 3 days prior to admission -Patient with hemoglobin of 14.8 on presentation, 13.2 today -Did have FOBT which was positive in the ED -On PPI drip -GI was consulted -Patient is n.p.o. -Stool studies ordered but not yet collected -12/31: Stool studies canceled as patient has not had any more diarrhea, reports she felt a little bit of abdominal discomfort and nausea last night but is feeling better today. Initial plan was for endoscopy however patient reports that she is feeling better and given stability of her labs she would prefer to not undergo endoscopy at this time but will consider if she had any more blood in her stool or downtrending hemoglobin or intractable GI symptoms -01/01: Patient on clear liquids due to some more nausea but is improving and is willing to advance, will advance to full, additionally was able to provide stool sample which showed C. difficile PCR but the C. difficile toxin was negative. Enteric panel was negative. Hemoglobin slightly lower today at 12.2. Patient does have some epigastric burning which she reports is off-and-on and also happens at home, she is on PPI, will add simethicone. Will likely need outpatient evaluation and possible scope, patient had refused endoscopy yesterday, this was discussed with patient and family member at bedside and that she will need to follow-up outpatient and they were agreeable -01/02: Had been attempting to advance diet however patient has significant epigastric burning and pain with food that is not improving despite IV PPI and simethicone, additionally hemoglobin dropped 2 g in the past 2 days, patient is not noted overt blood per rectum since the melena prior to admission however given her symptoms and drop in hemoglobin despite not receiving fluids this is concerning for possible GI pathology. Discussed with patient and patient's daughter, she initially refused endoscopy as she thought she was feeling better overall however given her current symptoms with difficulty tolerating p.o. and significant nausea and pain she is now agreeable. Discussed with Dr. Huang, patient made n.p.o. at midnight -01/03: Patient underwent EGD today which showed LA grade D reflux esophagitis with bleeding as well as nonbleeding gastric and duodenal ulcers. Continue IV PPI and simethicone, advance diet as tolerated. Ulcers and esophagitis were biopsied and patient will need repeat endoscopy in 3 months for surveillance # Anemia -On presentation patient had endorsed some melena her to arrival and her FOBT was positive -GI consulted and plan was for upper endoscopy however patient refused -For several days her hemoglobin was stable and she felt her symptoms were improving however given increasing difficulty while trying to at [place] diet with epigastric pain and burning in hemoglobin that was 13.2 on 12/31, yesterday 12.2, today 11 there is concern this could be GI in nature -Discussed with Dr. Huang, patient made n.p.o. at midnight for likely endoscopy tomorrow -01/03: Patient was found to have ulcers as well as grade D reflux esophagitis that was bleeding, continue management with IV PPI and simethicone # Sepsis secondary to E. coli UTI -Patient with leukocytosis up to 27.8, patient febrile with temperatures up to 101 has been tachycardic, initially heart rate 127 with respiratory rate that increased to the 30s lactic acid of 3.2 and several systolic blood pressures less than 90. Additionally patient with DURAN on presentation with a baseline creatinine around 1 and it was 1.96 on arrival also acute encephalopathy on admission which was noted by admitting physician -UA with negative nitrite, 500 leuk esterase with 50-100 white blood cells and 4+ bacteria and preliminarily growing E. coli -CT chest and chest x-ray with pulmonary edema versus infectious process -Urine antigens negative -Viral respiratory panel and COVID-negative -Urine and blood cultures pending -Patient on broad-spectrum antibiotics with Zosyn -Stool studies ordered but not yet collected -12/31: Stool studies not yet able to be obtained. White blood cell count is downtrending, still slightly tachycardic but blood pressure stable, urine culture with pansensitive E. coli, suspect this is the cause of her sepsis. Will de-escalate to Rocephin. blood culture still pending -01/01: Patient on Rocephin, patient sepsis due to her E. coli UTI, overall is improving -01/02: On antibiotic day 4, improving, Lopez discontinued -01/03: Seems to be urinating without difficulty, remains on Rocephin, white blood cell count is normalized # Acute hypoxia secondary to flash pulmonary edema secondary to acute exacerbation of heart failure with reduced ejection fraction secondary to Takotsubo cardiomyopathy after IV fluids for sepsis -Patient initially 98% on room air and then desaturated to 80%, improved initially on 6 L however desaturated down to 89% despite 6 L and was started on BiPAP -Admit to intensive care unit, marking machine operator consult -Patient on BiPAP with improving saturations, developed the significant respiratory distress after fluid resuscitation for her suspected sepsis -BNP 3619 -CXR pulmonary edema versus infectious process -Patient initially not started on IV Lasix given her sepsis, also not given full sepsis fluids due to her low EF and flash pulmonary edema, -Last echo 09/17/2023 with EF of 20% and severe segmental systolic dysfunction, reportedly consistent with Takotsubo -Repeat echo was ordered -Daily weights, I's and O's -12/31: Respiratory status improved and patient only on 2 L O2 with sats in the mid to high 90s, did not require Lasix. Repeat echo again demonstrated EF of 20% with severe segmental systolic dysfunction. Continue to monitor weights and I's and O's -01/01: Still requiring 2 L of O2, wean as tolerated -01/02: On room air, continue to monitor weights, does not appear to be floridly overloaded and respiratory status has been improving, may need walk test prior to discharge -01/03: Patient denies any increased shortness of breath and is saturating well on room air, do not suspect she will need O2 at home given her improvement # Abnormal CT imaging of chest and abdomen -Right upper lobe groundglass airspace disease likely pulmonary edema cannot exclude infectious etiology or neoplastic process and recommended follow-up to resolution recommended -Ultimately need further imaging -Additionally new posterior left apical 13 mm nodule which will need compared to previous imaging to document long-term stability versus follow-up evaluation per Fleischner guidelines -Patient also had 2 cm hypoattenuating left anterior splenic lesion which increased from 1.2 cm to previous year and is also recommended that this have repeat follow-up evaluation -01/03: Daughter did mention extensive family history of malignancy, will be important for outpatient follow-up for monitoring. Does report previously there had been concerns for possible pathologic fractures and rectal mass however no rectal mass was found on colonoscopy and fractures were not felt to be due to cancer and it was suspected was due to osteopenia. Patient had previously been referred to Dr. Theodore on an outpatient basis #Elevated troponin -Troponin 2800, initially down trended to 2500 and is back up to 3000 -Suspect that this is secondary to either fluid overload or sepsis or combination of both -Patient with repeat echo pending -Not presently on heparin drip given no chest pain but does have significant elevation in her troponins and BNP -Given this and patient's very complex presentation and history cardiology consult placed on admission -12/31: Repeat echo again demonstrated EF of 20% with severe segmental systolic dysfunction. Cardiology evaluated and suspects elevated troponin is secondary to underlying medical issues on top of her known obstructive CAD and a small diameter vessel which could explain the degree of troponin elevation. It was advised to resume carvedilol, started at low-dose. Resume LEYDI as tolerated -01/01: Continue Coreg, BP still borderline so we will hold off on LEYDI -01/03: Coreg resumed, was held for patient's sedation for endoscopy. Did have a preop EKG which showed some T wave inversions that were different from presentation. Patient reports that she had the chest tightness and shortness of breath after she received fluids in the ED but had not had it before or since. She was evaluated by cardiology this admission she did have the elevated troponins and did not recommend any specific therapy or interventions at this time patient that she has had no further chest tightness or cardiac symptoms. Her aspirin has been held due to the concerns for bleeding, will need to discuss with GI when it may be safe to resume this #Type 2 diabetes mellitus -Glucose checks and sliding scale insulin -Hold home glipizide -12/31: Remains elevated, increase sliding scale factor, patient still NPO. May need to schedule Premeal or long-acting depending on glucoses moving forward -01/01: Glucose only 166 this a.m. and patient still with fairly poor p.o. intake, continue to monitor closely -01/02: Glucose 200 this a.m., suspect this may increase as patient has diet advanced, continue to monitor closely -01/03: Patient had been made n.p.o. again, will continue to evaluate as patient's diet is advanced #Hypertension -Patient has not been taking her carvedilol as she has been out, hold lisinopril given patient's sepsis and DURAN -12/31: Resume low-dose carvedilol per cardiology recommendations, resume AC when at lower dose when BP tolerates -01/01: Continue the low-dose carvedilol, BP not yet high enough to reinstitute LEYDI -01/02: Tolerating carvedilol, given patient may have sedation tomorrow for endoscopy and is not hypertensive we will hold a.m. carvedilol -01/03: Resume carvedilol for this p.m. # DURAN?resolved -Creatinine on arrival 1.96 with a baseline closer to 1 -Repeat this a.m. 1.66 -And CTA chest abdomen pelvis patient did have a near complete obstructing right renal artery lesion just beyond the origin which was reported to be stable -12/31: Creatinine is continued to downtrend, down to 1.32 today -01/01: Creatinine continues to improve, creatinine 1.01 today -01/02: Creatinine 0.85 today, significantly improved, suspect this is probably her baseline -01/03: BUN now normalized, creatinine stable #GERD -Patient has not been taking her PPI, presently on PPI drip -12/31: Continue PPI as above -01/01: Patient refused endoscopy yesterday, continuing PPI at this time, starting simethicone -01/02: Changing PPI to oral, continue simethicone, advance diet -01/03: Patient found to have gastric and duodenal ulcers as well as esophagitis, continue management as above Chronic medical problems: #Depression/anxiety -Continue home medications #DVT ppx: SCDs Zahra Palacio MD Time spent in the patient's overall evaluation, decision-making process, review of diagnostic data, adjustment of management, discussion with other providers, nursing and ancillary staff involved in patient's care documentation, 40 Minutes Charges/Coding Visit Charges Inpatient E&M: 76723 Subs Hosp L2
--- NOTE | 2024-01-04 11:30 | IMM_PTH ---
PATIENT: LUBA MARSH LOC: [facility] U#:[id number] AGE/SX: 68/F ROOM: [facility] RE12/30/[address]: Dr. Zahra Palacio MD : 1955 BED: 1 DIS: 01/05/2024 SPEC #: [id number] RECD: 01/07/24 09:42 STATUS: TRICIA REQ #: [id number] DANIKA: 01/04/24 11:[address]: Christopher Huang DEPT: IMMUNOHISTOCHEMISTRY RECD BY: Tee Smart ENTERED: 01/07/24 09:43 SP TYPE: IMMUNO OTHR DR: MD Dr. Tiffanie Nova MD Dr. Paige Pierce, MD Rachel Edgar, CODING TECHNICIAN-C Tissues: Gastric mucous membrane Procedures: H Pylori (initial) PHYSICIAN & INSTITUTION [place] [address] SPECIMEN INFORMATION: Tissue Source: Gastric body mass biopsy Clinical Info: GI bleed Specimen Number: [id number] CPT code: 44587 METHODOLOGY: Deparaffinized sections of prefer/formalin-fixed tissue or PAP/DQ stained slides are incubated with monoclonal/polyclonal antibodies/oligonucleotide probes. Localization is made via biotin free immunoperoxidase method. Appropriate controls are performed and reacted as expected. Results on target cell population are indicated in the following table: RESULTS: ANTIBODY / CLONE RESULT H Pylori (polyclonal) negative These tests were developed and their performance characteristics determined by [facility]. They may not have been cleared or approved by the U.S. Food and Drug Administration. The FDA has determined that such clearance or approval is not necessary. The above immunohistochemical/dualISH markers are ordered and reviewed by the Pathologist. INTERPRETATION: Gastric body mass, biopsy: Negative for Helicobacter pylori organisms. 01/08/2024
--- NOTE | 2024-01-04 11:30 | EGD_PTH ---
PATIENT: LUBA MARSH LOC: [facility] U#:[id number] AGE/SX: 68/F ROOM: [facility] RE12/30/[address]: Dr. Zahra Palacio MD : 1955 BED: 1 DIS: 01/05/2024 SPEC #: [id number] RECD: 01/04/24 16:26 STATUS: TRICIA REPeter #: [id number] DANIKA: 01/04/24 11:[address]: Zahra Palacio DEPT: SURGICAL PATHOLOGY RECD BY: Mracy Monique ENTERED: 01/07/24 11:05 SP TYPE: EGD BIOPSY OT DR: MD Dr. Tiffanie Nova MD Rachel Edgar, CAR WASH ATTENDANT AUTOMATIC-C Tissues: Gastric mucous membrane Procedures: Surgery Specimen Level IV HEADER OPERATION: EGD PRE-OP DIAGNOSIS: GO bleed TISSUE SUBMITTED: Gastric body mass biopsy MICROSCOPIC DIAGNOSIS Gastric body mass, biopsy: Changes of fundic gland polyp. Mild chronic inflammation. See comment. AM.mr 01/08/2024 COMMENT The results of immunohistochemistry for Helicobacter pylori will be reported separately ([id number]). Clinical correlation is suggested. MICROSCOPIC DESCRIPTION Slides are reviewed. GROSS DESCRIPTION Received in fixative is one container labeled with the patient's name and designated Gastric body mass biopsy. The specimen consists of multiple irregular fragments of light bermudez soft tissue that in aggregate measure 1.0 x 0.5 x 0.1 cm. The specimen is totally submitted in one cassette. AM.mr 01/07/2024 TC:3 CPT:87663
--- NOTE | 2024-01-04 12:26 | OP.CCLET_ITS ---
01/04/2024 Andria Cano Re : Upper GI endoscopy procedure for Donna Benavidez Dear Merlin This procedure was performed on Thursday, January 04, 2024. My impressions and recommendations are as follows: Impressions : - LA Grade D reflux esophagitis with bleeding. Biopsied. - Non-bleeding gastric ulcer with no stigmata of bleeding. Biopsied. - Non-bleeding duodenal ulcers with no stigmata of bleeding. Recommendations : - [facility]. - Advance diet as tolerated. - Continue present medications. - Await pathology results. - Repeat upper endoscopy in 3 months for surveillance. My findings are described in the full procedure note, which is enclosed. If I can be of further assistance, please feel free to contact me at . Sincerely, Christopher Huang, 01/04/2024 12:26:08 PM This report has been signed electronically.
--- NOTE | 2024-01-04 12:26 | OP.EGD_ITS ---
Patient Name: Donna Benavidez Procedure Date: 01/04/2024 11:57 AM Date of : 1955 Age: 68 Procedure: Upper GI endoscopy Indications: Iron deficiency anemia, Melena Providers: Christopher Huang DO Medicines: Monitored Anesthesia Care Patient Profile: This is a 68 year old female. Refer to note in patient chart for documentation of history and physical. Patient has symptoms of acute epigastric abdominal pain, acute nausea and acute vomiting. Complications: No immediate complications. Procedure: Pre-Anesthesia Assessment: - Prior to the procedure, a History and Physical was performed, and patient medications and allergies were reviewed. The patient is competent. The risks and benefits of the procedure and the sedation options and risks were discussed with the patient. All questions were answered and informed consent was obtained. Patient identification and proposed procedure were verified by the physician in the pre-procedure area. Mental Status Examination: alert and oriented. Airway Examination: normal oropharyngeal airway and neck mobility. Respiratory Examination: clear to auscultation. CV Examination: normal. Prophylactic Antibiotics: The patient does not require prophylactic antibiotics. Prior Anticoagulants: The patient has taken no anticoagulant or antiplatelet agents except for NSAID medication. ASA Grade Assessment: III - A patient with severe systemic disease. After reviewing the risks and benefits, the patient was deemed in satisfactory condition to undergo the procedure. The anesthesia plan was to use monitored anesthesia care (MAC). Immediately prior to administration of medications, the patient was re-assessed for adequacy to receive sedatives. The heart rate, respiratory rate, oxygen saturations, blood pressure, adequacy of pulmonary ventilation, and response to care were monitored throughout the procedure. The physical status of the patient was re-assessed after the procedure. After obtaining informed consent, the endoscope was passed under direct vision. Throughout the procedure, the patient's blood pressure, pulse, and oxygen saturations were monitored continuously. The Endoscope was introduced through the mouth, and advanced to the second part of duodenum. The upper GI endoscopy was accomplished without difficulty. The patient tolerated the procedure well. Scope In: 12:12:23 PM Scope Out: 12:18:01 PM Total Procedure Duration Time 0 hours 5 minutes 38 seconds Findings: LA Grade D (one or more mucosal breaks involving at least 75% of esophageal circumference) esophagitis with bleeding was found 34 to 42 cm from the incisors. Biopsies were taken with a cold forceps for histology. Verification of patient identification for the specimen was done. Estimated blood loss was minimal. One non-bleeding cratered gastric ulcer with no stigmata of bleeding was found in the gastric body. The lesion was 20 mm in largest dimension. Biopsies were taken with a cold forceps for histology. Verification of patient identification for the specimen was done. Estimated blood loss was minimal. Biopsies were taken with a cold forceps for Helicobacter pylori testing. Verification of patient identification for the specimen was done. Estimated blood loss was minimal. Many non-bleeding superficial duodenal ulcers with no stigmata of bleeding were found in the duodenal bulb, in the first portion of the duodenum and in the second portion of the duodenum. The largest lesion was 5 mm in largest dimension. Impression: - LA Grade D reflux esophagitis with bleeding. Biopsied. - Non-bleeding gastric ulcer with no stigmata of bleeding. Biopsied. - Non-bleeding duodenal ulcers with no stigmata of bleeding. Recommendation: - [facility]. - Advance diet as tolerated. - Continue present medications. - Await pathology results. - Repeat upper endoscopy in 3 months for surveillance. Procedure Code(s): --- Professional --- 65590, Esophagogastroduodenoscopy, flexible, transoral; with biopsy, single or multiple CPT copyright 2021 [employer]. All rights reserved. The codes documented in this report are preliminary and upon biomass technician review may be revised to meet current compliance requirements. Christopher Huang DO 01/04/2024 12:26:08 PM This report has been signed electronically. Number of Addenda: 0 Note Initiated On: 01/04/2024 11:57 AM
--- NOTE | 2024-01-04 12:27 | PCM.POST.ANE ---
Anesthesia: Postop Eval I Current Vital Signs Temperature: 98.6 F Pulse Rate: 92 Blood Pressure: 102/64 Respiratory Rate: 14 Pulse Ox: 94 Oxygen Delivery Method: Room Air Assessment Airway patent: Yes Spontaneous unlabored respirations: Yes Mental status: Asleep nausea: No Vomiting: No Anesthesia Complication: No Fluid Hydration Crystalloid volume administer (ml): 30 Total IV fluid infused: 30 Progress Note Anesthesia document: Postop Eval 1 completed: Yes
--- NOTE | 2024-01-04 13:10 | PCM.POSTANE2 ---
Anesthesia Postop Eval I Sum Postop Eval Completion status Anesthesia document: Postop Eval 1 completed: Yes Anesthesia Postop Eval I Summary Anesthesia Postop Eval I Summary: Anesthesia Postop Eval I: Assessment Summary Airway patent Yes 01/04/24 12:28 [email or web address] Spontaneous unlabored Yes 01/04/24 12:28 [email or web address] respirations Mental status Asleep 01/04/24 12:28 [email or web address] nausea No 01/04/24 12:28 [email or web address] Vomiting No 01/04/24 12:28 [email or web address] Anesthesia Postop Eval I: Fluid Summary Crystalloid volume administer 30 01/04/24 12:28 [email or web address] (ml) Colloids volume administered ( ml) Blood Product volume administered (ml) Total IV fluid infused 30 01/04/24 12:28 [email or web address] Anesthesia Postop Eval I: Summary Notes Anesthesia Complication No 01/04/24 12:28 [email or web address] Anesthesia Complication Comment: Post-operative progress note Anesthesia: Postop Eval II Evaluation Mental status: Awake Pain Level: 0 nausea: No Vomiting: No
[2024-01-04 13:39] LABS: Bedside Glucose 159 mg/dL (74-106)
[2024-01-04] MEDS: busPIRone 15 MG TABLET PO ×2 (13:47→22:23)
[2024-01-04] MEDS: Fluoxetine HCl 40 MG CAPSULE PO ×2 (13:47→22:23)
[2024-01-04] MEDS: Atorvastatin Calcium 20 MG Tablet PO (13:47)
[2024-01-04] MEDS: Simethicone 40MG/0.6ML Bottle 80 MG PO ×3 (13:53→22:24)
--- NOTE | 2024-01-04 16:05 | CASEMGMT ---
RN CM reviewed therapy notes, no therapy recommended at discharge. Patient maintaining on room air. RN CM in to discuss needs at discharge. Patient denies needs at discharge or help at discharge. Patient had no further questions or concerns.
[2024-01-04] MEDS: Insulin Lispro 100 UNIT/ML INSULN.PEN SC (16:11)
[2024-01-04] MEDS: Glucerna Shake 120 ML LIQUID PO (16:19)
[2024-01-04 16:32] LABS: Bedside Glucose 173 mg/dL (74-106)
[2024-01-04] MEDS: Budesonide Respules 0.5 MG/2 ML AMPUL.NEB. INHALATION (19:13)
[2024-01-04] MEDS: Carvedilol 3.125 MG TABLET PO (22:23)
[2024-01-04] MEDS: Nystatin Powder 15gm Bottle 1 APPLIC TOPICAL (22:25)
[2024-01-05 04:15] VITALS: BP 115/59; PULSE 85; RESP 18; TEMP 36.8; O2SAT 96
[2024-01-05 05:47] LABS: Absolute Lymphocyte Count 1.78 X10^3/uL (0.83-4.51); Basophil# 0.01 X10^3/uL; Basophil% 0.1 % (0-1); Eosinophil# 0.24 X10^3/uL; Eosinophils% 3.1 % (0-5); Hemoglobin 11.1 g/dL (12.0-15.0); Lymphocyte # 1.78 X10^3/ul (0.83-4.51); Lymphocyte % 23.3 % (19-41); Mean Corp Hgb Conc 31.7 g/dL (32-36); Mean Corpuscular Hgb 29.8 pg (27.0-32.0); Mean Corpuscular Volume 93.8 fL (81-99); Mean Platelet Vol. 10.8 fl (6.2-12.0); Monocyte# 0.53 X10^3/uL; Monocyte% 6.9 % (0-10); NRBC Flagged by Analyzer 0 % (0-5); Neutrophil # 5.04 X10^3/uL (2.7-7.7); Neutrophil % 66.2 % (47-70); Platelet Count 219 K/mm3 (150-450); RBC Distribution Width CV 13.2 % (11.6-14.6); RBC Distribution Width SD 44.8 fl (35.1-43.9); Red Blood Count 3.73 M/mm3 (4.2-5.4); White Blood Count 7.6 K/mm3 (4.4-11.0)
[2024-01-05 05:55] VITALS: BMI 26.9
[2024-01-05 06:01] LABS: AST(SGOT) 14 U/L (15-37); Alanine Aminotransfer ALT/SGPT 19 U/L (13-56); Albumin, Serum 3.1 g/dL (3.2-5.0); Alkaline Phosphatase 65 U/L (45-117); Anion Gap 6 (5-15); BUN 14 mg/dL (7-18); Calcium,Total 8.5 mg/dL (8.5-10.1); Chloride 108 mmol/L (98-107); Creatinine, Serum 0.82 mg/dL (0.55-1.02); EST Glomerular Filtration Rate 73 mL/min (>60); Est Glom Filt Rate - Afr Amer 88 mL/min (>60); Estimated Creatinine Clearance 64.01 ml/min; Glucose 199 mg/dL (74-106); Potassium 3.4 mmol/L (3.5-5.1); Protein, Total 6.1 g/dL (6.4-8.2); Sodium Level 141 mmol/L (136-145)
[2024-01-05] MEDS: Gabapentin 100 MG Capsule PO ×2 (06:38→13:11)
[2024-01-05] MEDS: Insulin Lispro 100 UNIT/ML INSULN.PEN SC ×3 (06:40→16:19)
[2024-01-05 07:02] LABS: Bedside Glucose 169 mg/dL (74-106)
[2024-01-05 07:24] VITALS: PULSE 81; RESP 18; O2SAT 97
[2024-01-05] MEDS: Budesonide Respules 0.5 MG/2 ML AMPUL.NEB. INHALATION (07:24)
--- NOTE | 2024-01-05 08:19 | PCM.PN.HOSP ---
Reason for Visit Reason for Visit: Diagnoses Acute on chronic systolic (congestive) heart failure (12/30/23) Heart failure, unspecified (12/30/23) Urinary tract infection, site not specified (12/30/23) Fever, unspecified (12/30/23) Other specified abnormal findings of blood chemistry (12/30/23) Objective Data Objective Data Vital Signs: Vital Signs Temp Pulse Resp BP Pulse Ox O2 Del Method O2 Flow Rate 98.2 F 81 18 115/59 L 97 Room Air 2 01/05/24 04:15 01/05/24 07:24 01/05/24 07:24 01/05/24 04:15 01/05/24 07:24 01/05/24 07:24 01/04/24 11:04 FiO2 2 01/04/24 11:04 Oxygen Flow Rate (L/min) 2 Oxygen Delivery Method Room Air Weight: 73.3 kg Body Mass Index (BMI) 26.9 Intake & Output: Intake and Output for Last 24 Hours 01/03/24 01/04/24 01/05/24 23:59 23:59 23:59 Intake Total 1150 / 1390 1110 / 1110 100 / 100 Output Total 300 / 300 Balance 850 / 1090 1110 / 1110 100 / 100 Lab / Micro Data 01/05/24 04:10 01/05/24 04:10 Labs: Laboratory Results - last 24 hr 01/04/24 07:30: Blood Type O POSITIVE, Antibody Screen NEGATIVE 01/04/24 13:21: POC Glucose 159 H 01/04/24 16:10: POC Glucose 173 H 01/05/24 04:10: WBC 7.6, RBC 3.73 L, Hgb 11.1 L, Hct 35.0 L, MCV 93.8, MCH 29.8, MCHC 31.7 L, RDW Std Deviation 44.8 H, RDW Coeff of Gerhard 13.2, Plt Count 219, MPV 10.8, Immature Gran % (Auto) 0.400, Neut % (Auto) 66.2, Lymph % (Auto) 23.3, [place] % (Auto) 6.9, Eos % (Auto) 3.1, Baso % (Auto) 0.1, Absolute Neuts (auto) 5.0, Absolute Lymphs (auto) 1.78, Nucleated RBC % 0, Sodium 141, Potassium 3.4 L, Chloride 108 H, Carbon Dioxide 27.0, Anion Gap 6, BUN 14, Creatinine 0.82, Estim Creat Clear Calc 64.01, Est GFR (MDRD) Af Amer 88, Est GFR (MDRD) Non-Af 73, BUN/Creatinine Ratio 17.0, Glucose 199 H, Calcium 8.5, Total Bilirubin 0.60, AST 14 L, ALT 19, Alkaline Phosphatase 65, Total Protein 6.1 L, Albumin 3.1 L, Globulin 3.0, Albumin/Globulin Ratio 1.0 01/05/24 06:37: POC Glucose 169 H Micro: Microbiology 12/30/23 20:00 Blood Culture (Wb) - Left Hand Blood Culture - Final No growth in 5 days. 01/02/24 08:29 Stool Enteric Bacteriology - Final 01/02/24 08:29 Stool C. difficile GDH Antigen & Toxins - Final 01/02/24 08:29 Stool Clostridioides difficile (PCR) - Final 12/30/23 21:10 Urine, Clean Catch Urine Culture - Final Presumptive E. coli 12/30/23 21:10 Urine Catheter - Catheter Legionella Antigen - Final 12/30/23 23:42 Nasal Secretion MRSA (PCR) - Final 12/31/23 00:00 Mucosa - Nasopharyngeal Respiratory Panel (PCR) - Final 12/30/23 20:00 Mucosa - Nose SARS-CoV-2, Influenza & RSV (PCR) - Final 12/30/23 18:50 Stool Stool Occult Blood (EARLE) - Final Occult Blood Positive Assessment & Plan Assessment/Plan (1) Febrile: PLAN: Plan #Nausea/Emesis/Diarrhea-found to have LA grade D reflux esophagitis with bleeding, nonbleeding gastric and duodenal ulcers -Started roughly 3 days prior to admission -Patient with hemoglobin of 14.8 on presentation, 13.2 today -Did have FOBT which was positive in the ED -On PPI drip -GI was consulted -Patient is n.p.o. -Stool studies ordered but not yet collected -12/31: Stool studies canceled as patient has not had any more diarrhea, reports she felt a little bit of abdominal discomfort and nausea last night but is feeling better today. Initial plan was for endoscopy however patient reports that she is feeling better and given stability of her labs she would prefer to not undergo endoscopy at this time but will consider if she had any more blood in her stool or downtrending hemoglobin or intractable GI symptoms -01/01: Patient on clear liquids due to some more nausea but is improving and is willing to advance, will advance to full, additionally was able to provide stool sample which showed C. difficile PCR but the C. difficile toxin was negative. Enteric panel was negative. Hemoglobin slightly lower today at 12.2. Patient does have some epigastric burning which she reports is off-and-on and also happens at home, she is on PPI, will add simethicone. Will likely need outpatient evaluation and possible scope, patient had refused endoscopy yesterday, this was discussed with patient and family member at bedside and that she will need to follow-up outpatient and they were agreeable -01/02: Had been attempting to advance diet however patient has significant epigastric burning and pain with food that is not improving despite IV PPI and simethicone, additionally hemoglobin dropped 2 g in the past 2 days, patient is not noted overt blood per rectum since the melena prior to admission however given her symptoms and drop in hemoglobin despite not receiving fluids this is concerning for possible GI pathology. Discussed with patient and patient's daughter, she initially refused endoscopy as she thought she was feeling better overall however given her current symptoms with difficulty tolerating p.o. and significant nausea and pain she is now agreeable. Discussed with Dr. Huang, patient made n.p.o. at midnight -01/03: Patient underwent EGD today which showed LA grade D reflux esophagitis with bleeding as well as nonbleeding gastric and duodenal ulcers. Continue IV PPI and simethicone, advance diet as tolerated. Ulcers and esophagitis were biopsied and patient will need repeat endoscopy in 3 months for surveillance -01/04: Patient on transitional diet, if patient able to maintain her nutrition will be able to DC home # Anemia -On presentation patient had endorsed some melena her to arrival and her FOBT was positive -GI consulted and plan was for upper endoscopy however patient refused -For several days her hemoglobin was stable and she felt her symptoms were improving however given increasing difficulty while trying to at [place] diet with epigastric pain and burning in hemoglobin that was 13.2 on 12/31, yesterday 12.2, today 11 there is concern this could be GI in nature -Discussed with Dr. Huang, patient made n.p.o. at midnight for likely endoscopy tomorrow -01/03: Patient was found to have ulcers as well as grade D reflux esophagitis that was bleeding, continue management with IV PPI and simethicone -01/04: Hemoglobin 11.1 today, will need to continue PPI and simethicone # Sepsis secondary to E. coli UTI -Patient with leukocytosis up to 27.8, patient febrile with temperatures up to 101 has been tachycardic, initially heart rate 127 with respiratory rate that increased to the 30s lactic acid of 3.2 and several systolic blood pressures less than 90. Additionally patient with DURAN on presentation with a baseline creatinine around 1 and it was 1.96 on arrival also acute encephalopathy on admission which was noted by admitting physician -UA with negative nitrite, 500 leuk esterase with 50-100 white blood cells and 4+ bacteria and preliminarily growing E. coli -CT chest and chest x-ray with pulmonary edema versus infectious process -Urine antigens negative -Viral respiratory panel and COVID-negative -Urine and blood cultures pending -Patient on broad-spectrum antibiotics with Zosyn -Stool studies ordered but not yet collected -12/31: Stool studies not yet able to be obtained. White blood cell count is downtrending, still slightly tachycardic but blood pressure stable, urine culture with pansensitive E. coli, suspect this is the cause of her sepsis. Will de-escalate to Rocephin. blood culture still pending -01/01: Patient on Rocephin, patient sepsis due to her E. coli UTI, overall is improving -01/02: On antibiotic day 4, improving, Lopez discontinued -01/03: Seems to be urinating without difficulty, remains on Rocephin, white blood cell count is normalized -01/04: Today is day 6 of antibiotics, plan will be 7 to 10 days of antibiotics # Acute hypoxia secondary to flash pulmonary edema secondary to acute exacerbation of heart failure with reduced ejection fraction secondary to Takotsubo cardiomyopathy after IV fluids for sepsis -Patient initially 98% on room air and then desaturated to 80%, improved initially on 6 L however desaturated down to 89% despite 6 L and was started on BiPAP -Admit to intensive care unit, soundscriber mechanic consult -Patient on BiPAP with improving saturations, developed the significant respiratory distress after fluid resuscitation for her suspected sepsis -BNP 3619 -CXR pulmonary edema versus infectious process -Patient initially not started on IV Lasix given her sepsis, also not given full sepsis fluids due to her low EF and flash pulmonary edema, -Last echo 09/17/2023 with EF of 20% and severe segmental systolic dysfunction, reportedly consistent with Takotsubo -Repeat echo was ordered -Daily weights, I's and O's -12/31: Respiratory status improved and patient only on 2 L O2 with sats in the mid to high 90s, did not require Lasix. Repeat echo again demonstrated EF of 20% with severe segmental systolic dysfunction. Continue to monitor weights and I's and O's -01/01: Still requiring 2 L of O2, wean as tolerated -01/02: On room air, continue to monitor weights, does not appear to be floridly overloaded and respiratory status has been improving, may need walk test prior to discharge -01/03: Patient denies any increased shortness of breath and is saturating well on room air, do not suspect she will need O2 at home given her improvement -01/04: Patient 97% on room air, respiratory status greatly improved # Abnormal CT imaging of chest and abdomen -Right upper lobe groundglass airspace disease likely pulmonary edema cannot exclude infectious etiology or neoplastic process and recommended follow-up to resolution recommended -Ultimately need further imaging -Additionally new posterior left apical 13 mm nodule which will need compared to previous imaging to document long-term stability versus follow-up evaluation per Fleischner guidelines -Patient also had 2 cm hypoattenuating left anterior splenic lesion which increased from 1.2 cm to previous year and is also recommended that this have repeat follow-up evaluation -01/03: Daughter did mention extensive family history of malignancy, will be important for outpatient follow-up for monitoring. Does report previously there had been concerns for possible pathologic fractures and rectal mass however no rectal mass was found on colonoscopy and fractures were not felt to be due to cancer and it was suspected was due to osteopenia. Patient had previously been referred to Dr. Theodore on an outpatient basis -01/04: Will advise follow-up with outpatient providers for further monitoring and workup if necessary #Elevated troponin -Troponin 2800, initially down trended to 2500 and is back up to 3000 -Suspect that this is secondary to either fluid overload or sepsis or combination of both -Patient with repeat echo pending -Not presently on heparin drip given no chest pain but does have significant elevation in her troponins and BNP -Given this and patient's very complex presentation and history cardiology consult placed on admission -12/31: Repeat echo again demonstrated EF of 20% with severe segmental systolic dysfunction. Cardiology evaluated and suspects elevated troponin is secondary to underlying medical issues on top of her known obstructive CAD and a small diameter vessel which could explain the degree of troponin elevation. It was advised to resume carvedilol, started at low-dose. Resume LEYDI as tolerated -01/01: Continue Coreg, BP still borderline so we will hold off on LEYDI -01/03: Coreg resumed, was held for patient's sedation for endoscopy. Did have a preop EKG which showed some T wave inversions that were different from presentation. Patient reports that she had the chest tightness and shortness of breath after she received fluids in the ED but had not had it before or since. She was evaluated by cardiology this admission she did have the elevated troponins and did not recommend any specific therapy or interventions at this time patient that she has had no further chest tightness or cardiac symptoms. Her aspirin has been held due to the concerns for bleeding, will need to discuss with GI when it may be safe to resume this -01/04: No further chest pain, outpatient cardiology follow-up #Type 2 diabetes mellitus -Glucose checks and sliding scale insulin -Hold home glipizide -12/31: Remains elevated, increase sliding scale factor, patient still NPO. May need to schedule Premeal or long-acting depending on glucoses moving forward -01/01: Glucose only 166 this a.m. and patient still with fairly poor p.o. intake, continue to monitor closely -01/02: Glucose 200 this a.m., suspect this may increase as patient has diet advanced, continue to monitor closely -01/03: Patient had been made n.p.o. again, will continue to evaluate as patient's diet is advanced -01/04: A.m. glucose 169 #Hypertension -Patient has not been taking her carvedilol as she has been out, hold lisinopril given patient's sepsis and DURAN -12/31: Resume low-dose carvedilol per cardiology recommendations, resume AC when at lower dose when BP tolerates -01/01: Continue the low-dose carvedilol, BP not yet high enough to reinstitute LEYDI -01/02: Tolerating carvedilol, given patient may have sedation tomorrow for endoscopy and is not hypertensive we will hold a.m. carvedilol -01/03: Resume carvedilol for this p.m. -01/04: Patient tolerating carvedilol Chronic medical problems: #Depression/anxiety -Continue home medications Not actively being addressed: # DURAN?resolved -Creatinine on arrival 1.96 with a baseline closer to 1 -Repeat this a.m. 1.66 -And CTA chest abdomen pelvis patient did have a near complete obstructing right renal artery lesion just beyond the origin which was reported to be stable -12/31: Creatinine is continued to downtrend, down to 1.32 today -01/01: Creatinine continues to improve, creatinine 1.01 today -01/02: Creatinine 0.85 today, significantly improved, suspect this is probably her baseline -01/03: BUN now normalized, creatinine stable #GERD -Patient has not been taking her PPI, presently on PPI drip -12/31: Continue PPI as above -01/01: Patient refused endoscopy yesterday, continuing PPI at this time, starting simethicone -01/02: Changing PPI to oral, continue simethicone, advance diet -01/03: Patient found to have gastric and duodenal ulcers as well as esophagitis, continue management as above #DVT ppx: SCDs Zahra Palacio MD Time spent in the patient's overall evaluation, decision-making process, review of diagnostic data, adjustment of management, discussion with other providers, nursing and ancillary staff involved in patient's care documentation, 36 Minutes Charges/Coding Visit Charges Inpatient E&M: 78263 Subs Hosp L2
[2024-01-05] MEDS: Ondansetron 4 MG/2 ML Vial IV (09:07)
[2024-01-05] MEDS: 0.9% Saline Lock 10 ML Syringe IV (09:07)
[2024-01-05] MEDS: Pantoprazole Sodium 40 MG in 0.9% Normal Saline (100mL MB+) 100 ML 330 MG IV (09:09)
[2024-01-05] MEDS: busPIRone 15 MG TABLET PO (09:13)
[2024-01-05] MEDS: Simethicone 40MG/0.6ML Bottle 80 MG PO ×2 (09:13→13:11)
[2024-01-05] MEDS: Atorvastatin Calcium 20 MG Tablet PO (09:13)
[2024-01-05] MEDS: Fluoxetine HCl 40 MG CAPSULE PO (09:13)
[2024-01-05] MEDS: Nystatin Powder 15gm Bottle 1 APPLIC TOPICAL (09:14)
[2024-01-05] MEDS: Carvedilol 3.125 MG TABLET PO (09:14)
[2024-01-05 09:15] VITALS: BP 132/70; PULSE 86; RESP 18; TEMP 36.7; O2SAT 100
[2024-01-05] MEDS: Ceftriaxone 1 GM/50 ML BAG IV (09:45)
[2024-01-05] MEDS: Potassium Chloride 10mEq/100mL 10 MEQ/100 ML IV.SOLN. 100 MEQ IV BOLUS (11:01)
[2024-01-05 11:44] LABS: Bedside Glucose 153 mg/dL (74-106)
--- NOTE | 2024-01-05 13:53 | PCM.DC ---
Discharge Instructions Diet Discharge Diet: Light diet - advance as tolerated and - (Avoid acidic foods) DC O2, CPAP, BIPAP needs PSN CPAP & BiPAP: BiPAP & CPAP Settings per PSN Mode BiPAP 12/31/23 08:11 Bipap Delivery Device Face Mask 12/31/23 08:11 BiPAP Inspiratory Pressure 12 12/31/23 08:11 BiPAP Expiratory Pressure 6 12/31/23 08:11 BiPAP Rate 12 12/31/23 08:11 Fraction of Inspired Oxygen ( 2 01/04/24 11:04 FIO2) Additional Home O2 Discharge instructions: No Dressing / Incision Discharge Activity: - (Increase activity as tolerated) Follow Up Care Test Results: Test results from this visit will be discussed in further detail at your follow-up appointment, if applicable. Discharge Plan Admission Admit Date/Time: 12/30/23 22:40 Primary Reason for Your Visit: Nausea and vomiting Attending Provider: Zahra Palacio Primary Care Provider: Rupal Boyer Consulting Providers: Kanwal Aguilar; iTffanie Jimenez Instructions Patient Instructions: Esophagitis, Soft [place] Diet Dc Additional Instructions / Restrictions: DISCHARGE INSTRUCTIONS PLEASE READ *Please take this with you to your next doctors appointment* -You will need to hold your aspirin for 7 days -Is advised to discontinue meloxicam as this could hurt your kidneys especially if taking consistently -It is advised you take carvedilol 3.125 mg twice daily -You will be discharged with 2 more days of antibiotics, Augmentin, which you will take twice daily -Your lisinopril has been discontinued at this time due to lack of elevated blood pressures, this will likely need resumed in the future however will defer this to her outpatient provider -There is a small spot on your spleen and right upper and right lower lungs that will need to be monitored with repeat imaging, this can be coordinated through your outpatient providers office -Please follow-up with cardiology upon discharge. Please call their office to schedule hospital follow-up appointment upon discharge. -You will need to follow-up with Dr. Huang with GI in his office upon discharge. Please call his office to schedule an appointment (ph. [phone]) -You will need to take Protonix twice daily and simethicone on discharge for your ulcers and irritated esophagus -Weigh yourself every day. A sudden weight gain can mean you are retaining fluid. Weigh yourself at the same time of day and in the same kind of clothes. Ideally, weigh yourself first thing in the morning after you empty your bladder, but before you eat breakfast. -Please call your physician if your weight goes up by more than 2 pounds in 1 day or 5 pounds in 1 week. This can be a sign that you are retaining more fluid than you should be. Clues to weight gain include checking your ankles for swelling, or noticing you are short of breath when you lie down -Please limit your sodium intake to less than 3 g/day. Here are tips: Limit canned, dried, packaged, and fast foods. Don't add salt to your food at the table. Season foods with herbs instead of salt when you cook. When you eat out, ask that the duck bill operator not add any salt to your dish. Don't eat fried or greasy foods. Be careful of bottled beverages. They can contain a lot of salt -Call 911 right away if you have: -Severe shortness of breath, such that you can't catch your breath even while resting -Severe chest pain that does not resolve with rest or nitroglycerin -[place], foamy mucus with cough and shortness of breath -An ongoing rapid or irregular heartbeat -Passing out or fainting -Stroke symptoms such as sudden numbness or weakness on one side of your face, arm, or leg or sudden confusion, trouble speaking or vision changes -Please call your primary care provider's office upon discharge to schedule a hospital follow up within 1 week. -For any concerning signs or symptoms please call 911 or proceed to the nearest emergency department Discharge Orders/Prescriptions Prescriptions: New carvedilol 3.125 mg Tablet 3.125 mg PO BID 30 Days Qty: 60 0RF amoxicillin-pot clavulanate 875-125 mg tablet 1 tab PO BID 2 Days Qty: 4 0RF sucralfate [Carafate] 1 gram tablet 1 g PO ACHS Qty: 120 0RF Continued fluoxetine 40 MG capsule 40 mg PO BID alendronate 70 MG tablet 70 mg PO SA Rx Instructions: unknown buspirone 7.5 MG tablet 15 mg PO BID glipizide 5 MG tablet 10 mg PO DAILY ergocalciferol (vitamin D2) 50,000 UNIT capsule 50,000 unit PO .COMPLEX Patient Comments: Unsure day patient takes Rx Instructions: 50,000 units orally Q 2 Weeks; 50,000 units orally; ondansetron 4 mg tablet,disintegrating 4 mg PO TID PRN (Reason: nausea and vomiting) Qty: 21 0RF simvastatin 40 mg tablet 40 mg PO DAILY oxybutynin chloride 10 mg tablet extended release 24hr 20 mg PO DAILY gabapentin 100 mg capsule 100 mg PO Q8H turmeric 1,000 mg capsule 1 cap PO DAILY pantoprazole [Protonix] 40 mg tablet,delayed release (DR/EC) 40 mg PO BID 30 Days Qty: 60 1RF Held aspirin 81 mg Tablet,Delayed Release (Dr/Ec) 81 mg PO BREAKFAST 30 Days Qty: 30 3RF Hold Instructions: Resume on 01/13/24. Discontinued lisinopril 20 MG tablet 20 mg PO DAILY Qty: 30 0RF meloxicam 7.5 mg tablet 7.5 mg PO DAILY methocarbamol 500 mg tablet 1,000 mg PO BID carvedilol 6.25 mg tablet 6.25 mg PO BID Qty: 60 0RF Rx Instructions: must administer with a meal/food Referrals / Follow Up: Ethan Hayes MD [Med Staff - Active Staff] - ( -Please follow-up with cardiology upon discharge. Please call their office to schedule hospital follow-up appointment upon discharge.) Christopher Huang DO [Med Staff - Active Staff] - ( -You will need to follow-up with Dr. Huang with GI in his office upon discharge. Please call his office to schedule an appointment (ph. [phone])) Rupal Boyer NP-C [Primary Care Provider] - Within 1 Week Disposition Disposition (needs filled in before D/C Order can be placed): Home, Self Care
--- NOTE | 2024-01-05 13:57 | PCM.DC.SUM ---
Providers Date of Admission: 12/30/23 Date of Discharge: 01/05/24 Primary Care Physician: Rupal Boyer, TAG PRESS OPERATOR-Madelyn Consultations 12/30/23 23:20 Consult: Cardiology Routine Consulting Provider: Tiffanie Jimenez Reason for Consult: NSTEMI EMERGENT Consult: No MD Notified: Yes Date Notified: 12/30/23 Time Notified: 22:43 Method of Notification: ED Physician Initiated Consult: Gastroenterology Routine Consulting Provider: [facility] Reason for Consult: GI bleed EMERGENT Consult: No MD Notified: Yes Date Notified: 12/30/23 Time Notified: 22:43 Method of Notification: Text Consult: Blow Moulding Machine Operator / Pulmonary Medicine Routine Consulting Provider: Intensivists/Pulmonary Med Reason for Consult: Resp failure, ? HF/PNA, UTI, GI bleed, NSTEMI EMERGENT Consult: Yes MD Notified: Yes Date Notified: 12/30/23 Time Notified: 22:42 Method of Notification: Text Reason For Visit: RESP FAILURE, UTI Diagnosis Discharge Diagnosis (1) Febrile: Status: Acute Code(s): R50.9 - Fever, unspecified Plan #Sepsis 2/2 ecoli #Anemia 2/2 UGIB 2/2 bleeding esophagitis, duodenal, and gastric ulcers #N/V suspected d/t gastric uclers #Elevated troponin 2/2 flash pulmonary edema in setting of known CAD #Flash pulmonary edema 2/2 AEHFrEF w/ known takotsubo cardiomyopathy #RUL ground glass airspace disease #Left apical 13mm nodule #2cm hypoattenuating left anterior splenic lesion #DMII #HTN #Depression and anxiety #GERD Medications at Discharge Home Medications alendronate 70 mg tablet 70 mg PO SA osteoporosis 01/06/18 buspirone 7.5 mg tablet 15 mg PO BID anxiety 01/06/18 fluoxetine 40 mg capsule 40 mg PO BID anxiety 01/06/18 glipizide 5 mg tablet 10 mg PO DAILY antidiabetic 01/06/18 ergocalciferol (vitamin D2) 1,250 mcg (50,000 unit) capsule 50,000 unit PO .COMPLEX supplement 02/12/19 gabapentin 100 mg capsule 100 mg PO Q8H pain 04/14/23 ondansetron 4 mg disintegrating tablet 4 mg PO TID PRN nausea and vomiting #21 tabs 04/14/23 oxybutynin chloride 10 mg tablet,extended release 24 hr 20 mg PO DAILY bladder 04/14/23 simvastatin 40 mg tablet 40 mg PO DAILY cholesterol 04/14/23 turmeric 1 cap PO DAILY supplement 04/14/23 aspirin 81 mg tablet,delayed release 81 mg PO BREAKFAST 30 days #30 tabs 09/20/23 amoxicillin 875 mg-potassium clavulanate 125 mg tablet 1 tab PO BID 2 days #4 tabs 01/05/24 carvedilol 3.125 mg tablet 3.125 mg PO BID 30 days #60 tabs 01/05/24 pantoprazole 40 mg tablet,delayed release (Protonix) 40 mg PO BID 30 days #60 tabs 01/05/24 sucralfate 1 gram tablet (Carafate) 1 g PO ACHS #120 tabs 01/05/24 Hospital Course Procedures EGD (01/04/24) Summary of Care Provided Minutes Spent on Discharge: 33 Hospital Course: 68-year-old female history of GERD, anxiety and depression, CAD with Takotsubo cardiomyopathy, diabetes who presented [facility] ED 12/30/2023 with nausea, vomiting, diarrhea for 3 days and an episode of melanotic stool. On arrival patient found to have UTI and was started on antibiotics and given IV fluid resuscitation with 1 L IVF and aggressive maintenance fluids due to her cardiomyopathy however she developed flash pulmonary edema with respiratory distress and was placed on BiPAP and in the ICU at that time. She was also found to have an elevated troponin. GI consulted due to the melena, cardiology consulted due to her elevated troponin, patient services manager consulted due to her flash pulmonary edema requiring BiPAP and ICU admission. In regards to respiratory status she was able to tolerate BiPAP well and was switched to nasal cannula and ultimately off with good oxygen saturations without requiring IV diuresis but was not given further fluids. Her troponin was elevated but she has known coronary artery disease and cardiology surmised that her sepsis and flash pulmonary edema were the cause of her troponin elevation in setting of coronary artery disease, this is not a type I event. Lastly patient had melena, GIs plan was for endoscopy however patient refused. Patient had improved overall on antibiotics and was found to have an E. coli UTI however on the floor she had dropping hemoglobin and significant epigastric burning with difficulty tolerating p.o. and ultimately was agreeable to endoscopy. She underwent endoscopy 01/04/2024 which showed LA grade D reflux esophagitis with bleeding, nonbleeding gastric and duodenal ulcers and biopsies were taken with recommendations for repeat endoscopy in 3 months for surveillance. On day of discharge patient overall tolerating diet and is feeling better, reports a little bit of pain when she drinks some water in the middle of the night and laid back down but aside from that pain and burning are significantly improved, is still having bowel movements but not profoundly so. No diarrhea. Nausea is also improving. Discussed patient's discharge instructions with her in person including the spot on spleen and lungs that she will need to follow-up for repeat imaging and monitoring and she verbalized understanding. No new or acute complaints. Discharge instructions as follows: DISCHARGE INSTRUCTIONS PLEASE READ *Please take this with you to your next doctors appointment* -You will need to hold your aspirin for 7 days -Is advised to discontinue meloxicam as this could hurt your kidneys especially if taking consistently -It is advised you take carvedilol 3.125 mg twice daily -You will be discharged with 2 more days of antibiotics, Augmentin, which she will take twice daily -Your lisinopril has been discontinued at this time due to lack of elevated blood pressures, this will likely need resumed in the future however will defer this to her outpatient provider -There is a small spot on your spleen and right upper and right lower lungs that will need to be monitored with repeat imaging, this can be coordinated through your outpatient providers office -Please follow-up with cardiology upon discharge. Please call their office to schedule hospital follow-up appointment upon discharge. -You will need to follow-up with Dr. Huang with GI in his office upon discharge. Please call his office to schedule an appointment (ph. [phone]) -You will need to take Protonix twice daily and simethicone on discharge for your ulcers and irritated esophagus -Weigh yourself every day. A sudden weight gain can mean you are retaining fluid. Weigh yourself at the same time of day and in the same kind of clothes. Ideally, weigh yourself first thing in the morning after you empty your bladder, but before you eat breakfast. -Please call your physician if your weight goes up by more than 2 pounds in 1 day or 5 pounds in 1 week. This can be a sign that you are retaining more fluid than you should be. Clues to weight gain include checking your ankles for swelling, or noticing you are short of breath when you lie down -Please limit your sodium intake to less than 3 g/day. Here are tips: Limit canned, dried, packaged, and fast foods. Don't add salt to your food at the table. Season foods with herbs instead of salt when you cook. When you eat out, ask that the assistant basketball coach not add any salt to your dish. Don't eat fried or greasy foods. Be careful of bottled beverages. They can contain a lot of salt -Call 911 right away if you have: -Severe shortness of breath, such that you can't catch your breath even while resting -Severe chest pain that does not resolve with rest or nitroglycerin -[place], foamy mucus with cough and shortness of breath -An ongoing rapid or irregular heartbeat -Passing out or fainting -Stroke symptoms such as sudden numbness or weakness on one side of your face, arm, or leg or sudden confusion, trouble speaking or vision changes -Please call your primary care provider's office upon discharge to schedule a hospital follow up within 1 week. -For any concerning signs or symptoms please call 911 or proceed to the nearest emergency department Physical Exam Narrative General: Alert, oriented, no apparent distress HEENT: Atraumatic, normocephalic Eyes: Anicteric, normal conjunctiva, extraocular movements grossly intact Neck: Supple Respiratory: Clear to auscultation bilaterally, normal respiratory effort Cardiovascular: Regular rate and rhythm GI: Soft, nontender, nondistended Extremities: No edema Musculoskeletal: Moving all extremities Neuro: No overt focal neurological deficits Skin: No rashes appreciated Psych: Cooperative Weight / BMI Weight Weight: 73.3 kg Body Mass Index (BMI) 26.9 ABG / Lab / Microbiology Data 01/05/24 04:10 01/05/24 04:10 Laboratory: Laboratory Results - last 24 hr 01/04/24 16:10: POC Glucose 173 H 01/05/24 04:10: WBC 7.6, RBC 3.73 L, Hgb 11.1 L, Hct 35.0 L, MCV 93.8, MCH 29.8, MCHC 31.7 L, RDW Std Deviation 44.8 H, RDW Coeff of Gerhard 13.2, Plt Count 219, MPV 10.8, Immature Gran % (Auto) 0.400, Neut % (Auto) 66.2, Lymph % (Auto) 23.3, [place] % (Auto) 6.9, Eos % (Auto) 3.1, Baso % (Auto) 0.1, Absolute Neuts (auto) 5.0, Absolute Lymphs (auto) 1.78, Nucleated RBC % 0, Sodium 141, Potassium 3.4 L, Chloride 108 H, Carbon Dioxide 27.0, Anion Gap 6, BUN 14, Creatinine 0.82, Estim Creat Clear Calc 64.01, Est GFR (MDRD) Af Amer 88, Est GFR (MDRD) Non-Af 73, BUN/Creatinine Ratio 17.0, Glucose 199 H, Calcium 8.5, Total Bilirubin 0.60, AST 14 L, ALT 19, Alkaline Phosphatase 65, Total Protein 6.1 L, Albumin 3.1 L, Globulin 3.0, Albumin/Globulin Ratio 1.0 01/05/24 06:37: POC Glucose 169 H 01/05/24 11:22: POC Glucose 153 H Microbiology: Microbiology 12/30/23 20:00 Blood Culture (Wb) - Left Hand Blood Culture - Final No growth in 5 days. 01/02/24 08:29 Stool Enteric Bacteriology - Final 01/02/24 08:29 Stool C. difficile GDH Antigen & Toxins - Final 01/02/24 08:29 Stool Clostridioides difficile (PCR) - Final 12/30/23 21:10 Urine, Clean Catch Urine Culture - Final Presumptive E. coli 12/30/23 21:10 Urine Catheter - Catheter Legionella Antigen - Final 12/30/23 23:42 Nasal Secretion MRSA (PCR) - Final 12/31/23 00:00 Mucosa - Nasopharyngeal Respiratory Panel (PCR) - Final 12/30/23 20:00 Mucosa - Nose SARS-CoV-2, Influenza & RSV (PCR) - Final 12/30/23 18:50 Stool Stool Occult Blood (EARLE) - Final Occult Blood Positive D/C Instructions Discharge Diet: Light diet - advance as tolerated and - (Avoid acidic foods) DC O2, CPAP, BIPAP Needs PSN CPAP & BiPAP: BiPAP & CPAP Settings per PSN Mode BiPAP 12/31/23 08:11 Bipap Delivery Device Face Mask 12/31/23 08:11 BiPAP Inspiratory Pressure 12 12/31/23 08:11 BiPAP Expiratory Pressure 6 12/31/23 08:11 BiPAP Rate 12 12/31/23 08:11 Fraction of Inspired Oxygen ( 2 01/04/24 11:04 FIO2) Additional Home O2 Discharge instructions: No DC home with Oxygen: No Meaningful Use Info Meaningful Use Meaningful Use Diagnoses (Choose all that apply): CHF CHF LEYDI/ARB ordered at discharge?: No Reason LEYDI/ARB not ordered?: Hypotension Documented LVEF (%): 20 Ischemic Stroke Statin Dosing Therapy Reference: STATIN DOSE THERAPY REFERENCE: * Patients > 75 years receive moderate or high dose statin therapy. * Patients 75 years or YOUNGER should receive HIGH intensity statin dose unless contraindicated. You will be required to document reason for non-treatment if statin daily dose does not meet guidelines. HIGH DOSE STATIN THERAPY DAILY Atorvastatin > than or = to 40 mg Rosuvastatin > than or = to 20 mg Amlodipine + Atorvastatin > than or = to 2.5/40 mg Ezetimibe + Simvastatin 10/80 mg Simvastatin 80mg Discharge Plan Admission Admit Date/Time: 12/30/23 22:40 Primary Reason for Your Visit: Nausea and vomiting Attending Provider: Zahra Palacio Primary Care Provider: Rupal Boyer Consulting Providers: Kanwal Aguilar; Tiffanie Jimenez Instructions Patient Instructions: Esophagitis, Soft [place] Diet Dc Additional Instructions / Restrictions: DISCHARGE INSTRUCTIONS PLEASE READ *Please take this with you to your next doctors appointment* -You will need to hold your aspirin for 7 days -Is advised to discontinue meloxicam as this could hurt your kidneys especially if taking consistently -It is advised you take carvedilol 3.125 mg twice daily -You will be discharged with 2 more days of antibiotics, Augmentin, which you will take twice daily -Your lisinopril has been discontinued at this time due to lack of elevated blood pressures, this will likely need resumed in the future however will defer this to her outpatient provider -There is a small spot on your spleen and right upper and right lower lungs that will need to be monitored with repeat imaging, this can be coordinated through your outpatient providers office -Please follow-up with cardiology upon discharge. Please call their office to schedule hospital follow-up appointment upon discharge. -You will need to follow-up with Dr. Huang with GI in his office upon discharge. Please call his office to schedule an appointment (. [phone]) -You will need to take Protonix twice daily and simethicone on discharge for your ulcers and irritated esophagus -Weigh yourself every day. A sudden weight gain can mean you are retaining fluid. Weigh yourself at the same time of day and in the same kind of clothes. Ideally, weigh yourself first thing in the morning after you empty your bladder, but before you eat breakfast. -Please call your physician if your weight goes up by more than 2 pounds in 1 day or 5 pounds in 1 week. This can be a sign that you are retaining more fluid than you should be. Clues to weight gain include checking your ankles for swelling, or noticing you are short of breath when you lie down -Please limit your sodium intake to less than 3 g/day. Here are tips: Limit canned, dried, packaged, and fast foods. Don't add salt to your food at the table. Season foods with herbs instead of salt when you cook. When you eat out, ask that the assistant basketball coach not add any salt to your dish. Don't eat fried or greasy foods. Be careful of bottled beverages. They can contain a lot of salt -Call 911 right away if you have: -Severe shortness of breath, such that you can't catch your breath even while resting -Severe chest pain that does not resolve with rest or nitroglycerin -[place], foamy mucus with cough and shortness of breath -An ongoing rapid or irregular heartbeat -Passing out or fainting -Stroke symptoms such as sudden numbness or weakness on one side of your face, arm, or leg or sudden confusion, trouble speaking or vision changes -Please call your primary care provider's office upon discharge to schedule a hospital follow up within 1 week. -For any concerning signs or symptoms please call 911 or proceed to the nearest emergency department Discharge Orders/Prescriptions Prescriptions: New carvedilol 3.125 mg Tablet 3.125 mg PO BID 30 Days Qty: 60 0RF amoxicillin-pot clavulanate 875-125 mg tablet 1 tab PO BID 2 Days Qty: 4 0RF sucralfate [Carafate] 1 gram tablet 1 g PO ACHS Qty: 120 0RF Continued fluoxetine 40 MG capsule 40 mg PO BID alendronate 70 MG tablet 70 mg PO SA Rx Instructions: unknown buspirone 7.5 MG tablet 15 mg PO BID glipizide 5 MG tablet 10 mg PO DAILY ergocalciferol (vitamin D2) 50,000 UNIT capsule 50,000 unit PO .COMPLEX Patient Comments: Unsure day patient takes Rx Instructions: 50,000 units orally Q 2 Weeks; 50,000 units orally; ondansetron 4 mg tablet,disintegrating 4 mg PO TID PRN (Reason: nausea and vomiting) Qty: 21 0RF simvastatin 40 mg tablet 40 mg PO DAILY oxybutynin chloride 10 mg tablet extended release 24hr 20 mg PO DAILY gabapentin 100 mg capsule 100 mg PO Q8H turmeric 1,000 mg capsule 1 cap PO DAILY pantoprazole [Protonix] 40 mg tablet,delayed release (DR/EC) 40 mg PO BID 30 Days Qty: 60 1RF Held aspirin 81 mg Tablet,Delayed Release (Dr/Ec) 81 mg PO BREAKFAST 30 Days Qty: 30 3RF Hold Instructions: Resume on 01/13/24. Discontinued lisinopril 20 MG tablet 20 mg PO DAILY Qty: 30 0RF meloxicam 7.5 mg tablet 7.5 mg PO DAILY methocarbamol 500 mg tablet 1,000 mg PO BID carvedilol 6.25 mg tablet 6.25 mg PO BID Qty: 60 0RF Rx Instructions: must administer with a meal/food Referrals / Follow Up: Ethan Hayes MD [Med Staff - Active Staff] - ( -Please follow-up with cardiology upon discharge. Please call their office to schedule hospital follow-up appointment upon discharge.) Christopher Huang DO [Med Staff - Active Staff] - ( -You will need to follow-up with Dr. Huang with GI in his office upon discharge. Please call his office to schedule an appointment (ph. [phone])) Rupal Boyer NP-C [Primary Care Provider] - Within 1 Week Disposition Disposition (needs filled in before D/C Order can be placed): Home, Self Care Charges/Coding Visit Charges Inpatient E&M: 06672 Disch Hosp >30min
[2024-01-05 16:46] LABS: Bedside Glucose 183 mg/dL (74-106)
== END 2024-01-05 17:27 | disposition home or self-care (01) | DRG 871 ==
LOC: ED 21:18 → ICU 22:54 → PCU 01-01 16:15
PROVIDERS: Internal Medicine Gastroenterology; Admitting Provider Family Medicine; Emergency Provider Emergency Medicine; PCP Nurse Practitioner Family; Visit Provider Internal Medicine
PROC: 0DJ08ZZ Inspection of Upper Intestinal Tract, Via Natural or Artificial Opening Endoscopic (ICD-10-PCS; CPT 43235; principal; 2024-01-04 11:25)
DX: A41.51 Sepsis due to Escherichia coli [E. coli] (principal); J96.01 Acute respiratory failure with hypoxia; I50.23 Acute on chronic systolic (congestive) heart failure; K21.01 Gastro-esophageal reflux disease with esophagitis, with bleeding; G93.41 Metabolic encephalopathy; J81.0 Acute pulmonary edema; I21.A1 Myocardial infarction type 2; N28.0 Ischemia and infarction of kidney; F03.94 Unspecified dementia, unspecified severity, with anxiety; I13.0 Hypertensive heart and chronic kidney disease with heart failure and stage 1 through stage 4 chronic kidney disease, or unspecified chronic kidney disease; N17.9 Acute kidney failure, unspecified; F03.93 Unspecified dementia, unspecified severity, with mood disturbance; N39.0 Urinary tract infection, site not specified; E11.22 Type 2 diabetes mellitus with diabetic chronic kidney disease; N18.30 Chronic kidney disease, stage 3 unspecified; L40.50 Arthropathic psoriasis, unspecified; G25.81 Restless legs syndrome; D50.9 Iron deficiency anemia, unspecified; E66.9 Obesity, unspecified; K25.9 Gastric ulcer, unspecified as acute or chronic, without hemorrhage or perforation; I48.0 Paroxysmal atrial fibrillation; D73.89 Other diseases of spleen; E86.0 Dehydration; E78.00 Pure hypercholesterolemia, unspecified; G47.33 Obstructive sleep apnea (adult) (pediatric); I25.2 Old myocardial infarction; I25.10 Atherosclerotic heart disease of native coronary artery without angina pectoris; G43.709 Chronic migraine without aura, not intractable, without status migrainosus; R19.7 Diarrhea, unspecified; R11.2 Nausea with vomiting, unspecified; R91.1 Solitary pulmonary nodule; K26.9 Duodenal ulcer, unspecified as acute or chronic, without hemorrhage or perforation; T50.3X5A Adverse effect of electrolytic, caloric and water-balance agents, initial encounter; Z87.891 Personal history of nicotine dependence; Z79.84 Long term (current) use of oral 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 drugs; Z79.899 Other long term (current) drug therapy; Z79.82 Long term (current) use of aspirin
CPT/HCPCS: 36415; 51702; 71045; 71275; 74174; 80048; 80053; 80061; 81001; 82274; 82962; 83036; 83605; 83690; 83735; 83880; 84443; 84484; 85014; 85018; 85025; 85610; 85730; 86850; 86900; 86901; 87040; 87086; 87088; 87186; 87449; 87493; 87506; 87631; 87633; 87641; 88305; 88342; 93005; 93306; 94002; 94003; 94640; 94668; 94762; 97110; 97116; 97162; 97166; 97530; 97535; 97802; 97803; 99285; Q9957; Q9967; A4216; C8929; J0696; J2405

== ENCOUNTER 2024-02-13 16:20 | Inpatient (IN) | payer MEDICARE, MEDICAID, SELFPAY ==
[2024-02-13] VITALS (16 sets, daily range): BP systolic 92–243; BP diastolic 45–136; PULSE 117–143; RESP 16–22; TEMP 36.6–37.5; O2SAT 94–98; BMI 27.6; BMI 25.2
--- NOTE | 2024-02-13 16:47 | CT_ITS ---
EXAM: CT HEAD WITHOUT INTRAVENOUS CONTRAST CLINICAL INDICATION: fall/trauma, confused, vomiting TECHNIQUE: Multiple axial images were obtained of the head without intravenous contrast. This CT exam was performed using one or more of the following dose reduction techniques: automated exposure control, adjustment of the mA and/or kV according to patient size, and/or use of iterative reconstruction technique. COMPARISON: 09/16/2023 FINDINGS: BRAIN AND EXTRA-AXIAL SPACES: There is enlargement of ventricular system and cortical sulci. There is hypoattenuation in the periventricular white matter. No intra- or extra-axial hemorrhage. No evidence of acute infarct. No intracranial mass or mass effect. There is preservation of the land/white matter interface. Posterior fossa structures are unremarkable. Basal cisterns are patent. BONES/JOINTS: Unremarkable. No discrete lytic or blastic abnormalities. SINUSES: Unremarkable as visualized. Clear. MASTOID AIR CELLS: Unremarkable. Clear. ORBITS: Visualized globes, extraocular muscles, optic nerves and retrobulbar fat appear unremarkable. CT/Brain/Head without Contrast IMPRESSION: 1. No acute intracranial abnormality. There is been no significant change from reference exam. 2. Stable senescent change with small vessel ischemia. Electronically Signed: Star Ross MD at 18:03 EST ,
--- NOTE | 2024-02-13 16:47 | CT_ITS ---
EXAM: CT CERVICAL SPINE WITHOUT INTRAVENOUS CONTRAST CLINICAL INDICATION: fall/trauma, encephalopathy TECHNIQUE: Helically acquired images were obtained of the cervical spine without intravenous contrast. 2D reformatted images were reviewed. This CT exam was performed using one or more of the following dose reduction techniques: automated exposure control, adjustment of the mA and/or kV according to patient size, and/or use of iterative reconstruction technique. COMPARISON: No relevant prior studies available. FINDINGS: VERTEBRAE: Unremarkable. No fracture. No traumatic subluxation. No discrete lytic or blastic abnormality. Normal alignment. Normal craniocervical junction and cervicothoracic junction. DISCS/SPINAL CANAL/NEURAL FORAMINA: There is disc space narrowing at C5-6. SOFT TISSUES: Unremarkable. No prevertebral soft tissue swelling. LYMPH NODES: Unremarkable. No cervical adenopathy. LUNG APICES: Unremarkable as visualized. Clear. CT/Spine Cervical without Contras IMPRESSION: No acute osseous abnormalities of the cervical spine. There are mild degenerative changes with disc space narrowing. Electronically Signed: Star Ross MD at 18:12 EST ,
--- NOTE | 2024-02-13 16:48 | EKG12_ITS ---
Test Reason : Blood Pressure : */* mmHG Vent. Rate : 133 BPM Atrial Rate : 133 BPM P-R Int : 126 ms QRS Dur : 90 ms QT Int : 314 ms P-R-T Axes : 50 -22 82 degrees QTcB Int : 467 ms Sinus tachycardia Otherwise normal ECG Confirmed by TERRI WRIGHT, KATARINA ([id number]), primer expeditor and drier CAIT VIDES ([id number]) on 02/15/2024 6:26:12 AM Referred By: Confirmed By: KATARINA MURRAY MD
--- NOTE | 2024-02-13 16:50 | EX.ED.DYSGE1 ---
HPI History of Present Illness Chief Complaint: Seizure Informant: patient, spouse/S.O. and EMS Narrative Narrative: 68-year-old female was last seen normal yesterday by her , found today having fallen and screaming from the floor unwitnessed fall, near a doorway in their house. She has vomited since then. She is been extremely confused. He thinks maybe she has a urine infection because she acts this way when she gets them which is fairly frequent the last 1 was maybe a month ago. When she is well she is not confused at all. EMS thought they saw some seizure activity on part of her body but not everywhere, and they measured a fever of 101.7 although she is not febrile here. Limited information available, the patient not able to provide ROS at all. The did not see any seizure activity that he knows of and she does not have a history of seizures. [facility] Medical History Myocardial infarction type 2 Non-ST elevation SC (NSTEMI) Hiatal hernia Irritable bowel Back pain due to injury Restless legs Injury of head and neck High cholesterol Hearing loss, right Bipolar disorder Depression Anxiety GERD (gastroesophageal reflux disease) Former smoker Sleep apnea Atrial fibrillation Migraines Dementia Closed intertrochanteric fracture of left hip Psoriatic arthritis Nonobstructive atherosclerosis of coronary artery Obesity Type 2 diabetes mellitus Takotsubo syndrome Hyperlipidemia Essential (primary) hypertension NSTEMI (non-ST elevated myocardial infarction) (01/06/18) Home Medications ?Medication ?Instructions ?Recorded ?Last Taken ?Type alendronate 70 mg tablet 70 mg PO SA osteoporosis 01/06/18 Unknown History buspirone 7.5 mg tablet 15 mg PO BID anxiety 01/06/18 Unknown History fluoxetine 40 mg capsule 40 mg PO BID anxiety 01/06/18 Unknown History glipizide 5 mg tablet 10 mg PO DAILY antidiabetic 01/06/18 Unknown History ergocalciferol (vitamin D2) 1,250 50,000 unit PO .COMPLEX supplement 02/12/19 Unknown History mcg (50,000 unit) capsule gabapentin 100 mg capsule 100 mg PO Q8H pain 04/14/23 01/04/24 History ondansetron 4 mg disintegrating 4 mg PO TID PRN nausea and 04/14/23 Unknown Rx tablet vomiting #21 tabs oxybutynin chloride 10 mg 20 mg PO DAILY bladder 04/14/23 Unknown History tablet,extended release 24 hr simvastatin 40 mg tablet 40 mg PO DAILY cholesterol 04/14/23 Unknown History turmeric 1 cap PO DAILY supplement 04/14/23 Unknown History aspirin 81 mg tablet,delayed 81 mg PO BREAKFAST 30 days #30 tabs 09/20/23 Unknown Rx release carvedilol 3.125 mg tablet 3.125 mg PO BID 30 days #60 tabs 01/05/24 Unknown Rx pantoprazole 40 mg tablet,delayed 40 mg PO BID 30 days #60 tabs 01/05/24 Unknown Rx release (Protonix) sucralfate 1 gram tablet (Carafate) 1 g PO ACHS #120 tabs 01/05/24 Unknown Rx Allergy/AdvReac Type Severity Reaction Status Date / Time morphine Allergy Mild confusion Verified 02/13/24 16:26 codeine Allergy Itching Verified 02/13/24 16:26 fentanyl AdvReac confusion Verified 02/13/24 16:26 naproxen AdvReac Other Verified 02/13/24 16:26 Family History Mother Cancer skin Father Cancer prostate Surgical History History of back surgery History of carpal tunnel release of both wrists History of hysterectomy History of left heart catheterization (01/07/18) Social History household members: spouse Smoking Status: Former smoker how long ago did patient quit smokin years ago alcohol intake: never substance use type: does not use caffeine: Yes Type: carbonated beverages Number of servings: 1 ROS ROS ED Review of Systems ROS Unobtainable: due to mental status EXAM Physical Exam Const Vital Signs: 02/13/24 16:21 02/13/24 16:21 02/13/24 17:20 Temperature 97.9 F 97.9 F Temperature Source Temporal Temporal Pulse Rate 117 H 131 H 140 H Respiratory Rate 19 H 17 Blood Pressure 243/136 H 172/115 H Blood Pressure Mean 171 134 Pulse Ox 97 96 96 Oxygen Delivery Method Room Air Room Air 02/13/24 17:22 02/13/24 18:00 02/13/24 19:00 Temperature Temperature Source Pulse Rate 143 H 121 H Respiratory Rate 18 Blood Pressure 187/106 H 92/45 L Blood Pressure Mean 133 60 Pulse Ox 98 97 98 Oxygen Delivery Method Room Air 02/13/24 20:00 Temperature Temperature Source Pulse Rate 127 H Respiratory Rate 16 Blood Pressure 106/62 Blood Pressure Mean 76 Pulse Ox 95 Oxygen Delivery Method Room Air Positive well nourished and well developed Constitutional Narrative: Agitated, will not follow commands. Uncooperative. General Appearance ED: well developed HEENT Reports moist mucous membranes HEENT Narrative: No Park sign or raccoon eyes or CSF otorhinorrhea. normocephalic and atraumatic Eyes PERRL and EOMs intact bilaterally Eyes Narrative: Pupils 2 mm Neck full ROM and supple Resp normal respiratory effort and clear to auscultation bilaterally Cardio regular rate and regular rhythm Rate: tachycardic GI non-tender and non-distended Auscultation: normoactive bowel sounds Palpation: soft Back/Spine Back/Spine Narrative: No signs of trauma or rash Extremity normal to inspection General Extremety ED: Negative for edema, pulses abnormal or tenderness General Extremity: Negative for edema or pulses abnormal Neuro CN's II-XII intact bilaterally and no sensory deficits noted Neuro Narrative: Localizes to pain. Moving all 4 extremities with good strength, no gross deficits. No facial droop. Very slurred speech and unintelligible, but is edentulous. Sensorium / Orientation: awake, alert and orientation impaired Psych Attitude: agitated Skin no rashes or lesions noted and no wounds MDM MDM MDM Narrative Medical decision making narrative: Broad differential here in this altered 68-year-old with a nonfocal peripheral neurologic exam who apparently fell and hit her head and has a very high blood pressure. Given that I think she needs a head CT first which I emphasized to staff but she is going to need midazolam in order to get the study. This was successfully performed, I reviewed the CT images and report, and I agree with it. It is negative for acute hemorrhage or other acute abnormality. Furthermore same with the CT cervical spine, I reviewed the images and report which I agree with it is negative for acute fracture. Her chest x-ray 1 view is negative for pneumonia on my interpretation, radiology in agreement. She has a very high lactic acid at 8.7 and a very high white blood count of 21, all of this suspicious for sepsis. Therefore I am completing the 30 cc/kg fluid bolus, still awaiting urine specimen unknown source so far. She does have an anion gap elevation because of low bicarb presumably related to the lactic acidosis. Patient had been very agitated and was interrupting with attempting to care for her so Geodon was given which really helped calm her down. I do not think she is in status there is no clinical signs of seizure activity. With blood pressure really high, hypertensive encephalopathy is in the differential diagnosis so I am treating her blood pressure with hydralazine, that did help and got her down to 187/106 much lower than she had been at 243/136. Her urine looks clean before the urinalysis is back. Therefore I am giving her empiric antibiotics for unknown etiology admitting her to the hospital. I do not think this patient is in status epilepticus. Lab Data Attestation: I reviewed the patient's lab results. Labs: Laboratory Results - last 24 hr 02/13/24 02/13/24 16:47 18:46 WBC 21.0 H RBC 4.63 Hgb 13.7 Hct 43.8 MCV 94.6 MCH 29.6 MCHC 31.3 L RDW Std Deviation 43.7 RDW Coeff of Gerhard 12.7 Plt Count 345 MPV 9.5 Immature Gran % (Auto) 0.900 Neut % (Auto) 88.7 H Lymph % (Auto) 6.3 L Butler % (Auto) 3.6 Eos % (Auto) 0.2 Baso % (Auto) 0.3 Absolute Neuts (auto) 18.6 H Absolute Lymphs (auto) 1.33 Nucleated RBC % 0 PT 14.0 INR 1.1 APTT 22.4 L Sodium 137 Potassium 4.1 Chloride 101 Carbon Dioxide 19.0 L Anion Gap 17 H BUN 16 Creatinine 1.29 H Estim Creat Clear Calc 41.18 Est GFR (MDRD) Af Amer 53 L Est GFR (MDRD) Non-Af 43 L BUN/Creatinine Ratio 12.4 Glucose 374 H Lactic Acid 8.7 H* Calcium 9.8 Total Bilirubin 1.00 AST 18 ALT 17 Alkaline Phosphatase 104 Troponin I High Sens 17 Total Protein 7.9 Albumin 3.9 Globulin 4.0 Albumin/Globulin Ratio 1.0 Urine Color Yellow Urine Clarity Clear Urine pH 7.0 Ur Specific Opp 1.010 Urine Protein 500 H Urine Glucose (UA) 1000 H Urine Ketones 15 H Urine Occult Blood 25 H Urine Nitrite Negative Urine Bilirubin Negative Urine Urobilinogen Normal Ur Leukocyte Esterase Negative Urine RBC 0-5 SEEN Urine WBC 0-5 SEEN Ur Squamous Epith Cells 0 SEEN Urine Bacteria 0 SEEN Urine Mucus 0 SEEN Radiography Diagnostic Testing: Clinical Impression(s) from Imaging Studies Brain CT 02/13/24 16:47 IMPRESSION: 1. No acute intracranial abnormality. There is been no significant change from reference exam. 2. Stable senescent change with small vessel ischemia. Electronically Signed: Star Ross MD at 18:03 EST , Cervical Spine CT 02/13/24 16:47 IMPRESSION: No acute osseous abnormalities of the cervical spine. There are mild degenerative changes with disc space narrowing. Electronically Signed: Star Ross MD at 18:12 EST , Chest X-Ray 02/13/24 17:10 IMPRESSION: No radiographic evidence of acute cardiopulmonary disease. Electronically Signed: Star Ross MD at 17:58 EST , Rhythm Strip Rhythm Strip: Sinus Tach Rate: 130 Ectopy: None EKG Initial EKG: Attestation: I personally reviewed and interpreted this EKG as follows: Interpretation: No Acute Injury Pattern and Sinus Tachycardia Comments: Nml axis & intervals; nml EKG Management Discussion w/another healthcare provider: Hospitalist Critical Care Time Critical Care Time: Yes Critical care time (excluding procedures): 30-74 minutes (34 min), Including time spent:, Discussing w/Patient &/or Family/Supervisor Publications, Discussing w/Consultants, Arranging Admission or Transfer and Performing Direct Patient Care at Bedside Discharge Plan Dx/Rx/DC Orders Clinical Impression: Acute encephalopathy, Malignant hypertension, SIRS (systemic inflammatory response syndrome), CKD (chronic kidney disease), stage III, Acute hyperglycemia, Acute lactic acidosis Disposition Disposition: Acute Care Hospital [facility]
[2024-02-13] MEDS: Midazolam 2 MG/2 ML Syringe IV (16:56)
[2024-02-13] MEDS: 0.9% Normal Saline (1000mL) 1,000 ML 999 ML IV ×2 (16:56→18:17)
[2024-02-13] MEDS: Ondansetron 4 MG/2 ML Vial IV (16:56)
[2024-02-13 17:08] LABS: Absolute Lymphocyte Count 1.33 X10^3/uL (0.83-4.51); Absolute Neutrophil Count 18.6 X10^3/uL (2.0-7.7); Basophil# 0.06 X10^3/uL; Basophil% 0.3 % (0-1); Eosinophil# 0.05 X10^3/uL; Eosinophils% 0.2 % (0-5); Hematocrit 43.8 % (37-47); Hemoglobin 13.7 g/dL (12.0-15.0); Lymphocyte # 1.33 X10^3/ul (0.83-4.51); Lymphocyte % 6.3 % (19-41); Mean Corp Hgb Conc 31.3 g/dL (32-36); Mean Corpuscular Hgb 29.6 pg (27.0-32.0); Mean Corpuscular Volume 94.6 fL (81-99); Mean Platelet Vol. 9.5 fl (6.2-12.0); Monocyte# 0.76 X10^3/uL; Monocyte% 3.6 % (0-10); NRBC Flagged by Analyzer 0 % (0-5); Neutrophil # 18.58 X10^3/uL (2.7-7.7); Neutrophil % 88.7 % (47-70); Platelet Count 345 K/mm3 (150-450); RBC Distribution Width CV 12.7 % (11.6-14.6); RBC Distribution Width SD 43.7 fl (35.1-43.9); Red Blood Count 4.63 M/mm3 (4.2-5.4)
--- NOTE | 2024-02-13 17:10 | RAD_ITS ---
EXAM: XR CHEST, 1 VIEW CLINICAL INDICATION: weakness TECHNIQUE: Frontal view of the chest. COMPARISON: 12/31/2023 FINDINGS: LUNGS AND PLEURAL SPACES: Unremarkable. No consolidation or edema. No pneumothorax. No effusion. HEART: Unremarkable. Cardiac silhouette not enlarged. MEDIASTINUM: Central airways and mediastinal contour are unremarkable. BONES/JOINTS: Unremarkable. No acute fracture. SOFT TISSUES: Unremarkable. RAD/Chest 1 View (Portable) IMPRESSION: No radiographic evidence of acute cardiopulmonary disease. Electronically Signed: Star Ross MD at 17:58 EST ,
[2024-02-13 17:12] LABS: International Normalized Ratio 1.1
[2024-02-13 17:13] LABS: Partial Thromboplast Time 22.4 Seconds (24.1-36.2)
[2024-02-13 17:34] LABS: AST(SGOT) 18 U/L (15-37); Alanine Aminotransfer ALT/SGPT 17 U/L (13-56); Albumin, Serum 3.9 g/dL (3.2-5.0); Alkaline Phosphatase 104 U/L (45-117); Anion Gap 17 (5-15); BUN 16 mg/dL (7-18); BUN/Creat Ratio 12.4 RATIO (10-20); Calcium,Total 9.8 mg/dL (8.5-10.1); Chloride 101 mmol/L (98-107); Creatinine, Serum 1.29 mg/dL (0.55-1.02); EST Glomerular Filtration Rate 43 mL/min (>60); Est Glom Filt Rate - Afr Amer 53 mL/min (>60); Estimated Creatinine Clearance 41.18 ml/min; Glucose 374 mg/dL (74-106); Potassium 4.1 mmol/L (3.5-5.1); Protein, Total 7.9 g/dL (6.4-8.2); Sodium Level 137 mmol/L (136-145); Troponin-I HS 17 pg/mL (3.0-54.0)
[2024-02-13 17:39] LABS: Lactic Acid 8.7 mmol/L (0.4-1.9)
[2024-02-13] MEDS: Ziprasidone IM 20 MG/ML VIAL 10 MG IM (18:03)
[2024-02-13] MEDS: hydrALAZINE 20 MG/ML Vial IV (18:30)
[2024-02-13 18:52] LABS: Bacteria 0 SEEN /hpf (None Seen); Mucous, Urine 0 SEEN /hpf (<or=2+); Squamous Epithelial Cells - UA 0 SEEN /hpf (5-10)
[2024-02-13 18:57] LABS: Color, Urine Yellow (Yellow); Glucose, Dipstick 1000 mg/dl (Normal); Ketone-Dipstick 15 mg/dl (Negative); Leukocyte Esterase-Dipstick Negative /ul (Negative); Nitrite-Dipstick Negative (Negative); Occult Blood-Urine 25 /ul (Negative); Protein-Dipstick 500 mg/dl (Negative); Urine Bilirubin Dipstick Negative (Negative); Urine Clarity Clear (Clear); Urine Urobilinogen Normal (Normal)
[2024-02-13 19:04] LABS: Red Blood Cells-Urine 0-5 SEEN /hpf (0-5); White Blood Cells 0-5 SEEN /hpf (0-5)
[2024-02-13] MEDS: Piperacil/Tazobactam 4.5 GM in 0.9% Normal Saline (100mL MB+) 100 ML IV (20:04)
[2024-02-13] MEDS: 0.9% Normal Saline (500mL Bag) 500 ML 999 ML IV (20:34)
[2024-02-13 20:55] LABS: Reflex Lactate? Y
--- NOTE | 2024-02-13 21:12 | PCM.HP.STD ---
HPI - General General Date of Admission: 02/13/24 Date of Service: 02/13/24 Chief Complaint: Unwitnessed fall HPI Narrative LUBA MARSH, is a 68 F who presented to the emergency department at [facility] on 02/13/2024 with a chief complaint of unwitnessed fall, altered mental status and intermittent vomiting. Patient does have a history of urinary tract issues and has been admitted previously for urinary tract infections. Her states she has been on antibiotics since but is unclear of the antibiotic given or the reason for the antibiotic being dosed. Evidently yesterday she was her normal self however this morning when he got up with her early she was vomiting. He went back to bed and woke up at 4 PM and she has not have any vomiting since that point in time but has been significantly altered. He thought maybe she has a urinary tract infection because he stated she acts like this when she gets them. EMS was called and they thought they saw some possible seizure activity on a part of her body but not a generalized tonic-clonic seizure. Temperature measured in the field was 101.7. She was not febrile on arrival to the emergency department however. Her was not able to contribute much to her history nor was she due to her altered mental status. Vital signs on presentation showed a temperature of 97.9, heart rate 117 and sinus, blood pressure was initially 243/136 but subsequently has dropped to 106/62. Respiratory was 19, pulse ox was 97% on room air. CBC showed a white count of 21.0 and a significant left shift with an 88.7% neutrophilia. Coags were overtly unremarkable. Chemistry panel showed an anion gap metabolic acidosis likely related to lactic acidosis. Her lactic acid was 8.7. Anion gap was 17 with a bicarb of 19. She did have DURAN with a serum creatinine of 1.29 (baseline 0.8-0.9.) troponin was 17. Sugar was markedly elevated at 374 with a recent hemoglobin A1c on 12/31/2023 at 5.5. Med reconciliation has not yet been complete however previous med reconciliation shows only glipizide. Liver function was unremarkable. Urine is not consistent with infection however she does have significant glucosuria. CT of the cervical spine is unremarkable. CT of the brain showed no acute findings and only senescent changes that were stable compared to previous. Chest x-ray shows no infiltrate or other acute finding. I did add a COVID PCR and respiratory viral panel which are pending at the time of admission Patient was treated aggressively with IV fluids at 30 cc/kg for sepsis protocol as she does meet sepsis criteria with altered mentation and elevated lactic acid with suspected infection however source is unclear at this time but urinary tract is suspected due to previous history. Antibiotics were started after cultures were obtained with vancomycin and Zosyn. She will be admitted to the intensive care unit. [facility] Medical History Myocardial infarction type 2 Non-ST elevation MS (NSTEMI) Hiatal hernia Irritable bowel Back pain due to injury Restless legs Injury of head and neck High cholesterol Hearing loss, right Bipolar disorder Depression Anxiety GERD (gastroesophageal reflux disease) Former smoker Sleep apnea Atrial fibrillation Migraines Dementia Closed intertrochanteric fracture of left hip Psoriatic arthritis Nonobstructive atherosclerosis of coronary artery Obesity Type 2 diabetes mellitus Takotsubo syndrome Hyperlipidemia Essential (primary) hypertension NSTEMI (non-ST elevated myocardial infarction) (01/06/18) Home Medications ?Medication ?Instructions ?Recorded ?Last Taken ?Type alendronate 70 mg tablet 70 mg PO SA osteoporosis 01/06/18 Unknown History buspirone 7.5 mg tablet 15 mg PO BID anxiety 01/06/18 Unknown History fluoxetine 40 mg capsule 40 mg PO BID anxiety 01/06/18 Unknown History glipizide 5 mg tablet 10 mg PO DAILY antidiabetic 01/06/18 Unknown History ergocalciferol (vitamin D2) 1,250 50,000 unit PO .COMPLEX supplement 02/12/19 Unknown History mcg (50,000 unit) capsule gabapentin 100 mg capsule 100 mg PO Q8H pain 04/14/23 01/04/24 History ondansetron 4 mg disintegrating 4 mg PO TID PRN nausea and 04/14/23 Unknown Rx tablet vomiting #21 tabs oxybutynin chloride 10 mg 20 mg PO DAILY bladder 04/14/23 Unknown History tablet,extended release 24 hr simvastatin 40 mg tablet 40 mg PO DAILY cholesterol 04/14/23 Unknown History turmeric 1 cap PO DAILY supplement 04/14/23 Unknown History aspirin 81 mg tablet,delayed 81 mg PO BREAKFAST 30 days #30 tabs 09/20/23 Unknown Rx release carvedilol 3.125 mg tablet 3.125 mg PO BID 30 days #60 tabs 01/05/24 Unknown Rx pantoprazole 40 mg tablet,delayed 40 mg PO BID 30 days #60 tabs 01/05/24 Unknown Rx release (Protonix) sucralfate 1 gram tablet (Carafate) 1 g PO ACHS #120 tabs 01/05/24 Unknown Rx Allergy/AdvReac Type Severity Reaction Status Date / Time morphine Allergy Mild confusion Verified 02/13/24 16:26 codeine Allergy Itching Verified 02/13/24 16:26 fentanyl AdvReac confusion Verified 02/13/24 16:26 naproxen AdvReac Other Verified 02/13/24 16:26 Family History Mother Cancer skin Father Cancer prostate Surgical History History of back surgery History of carpal tunnel release of both wrists History of hysterectomy History of left heart catheterization (01/07/18) Social History household members: spouse Smoking Status: Former smoker how long ago did patient quit smokin years ago alcohol intake: never substance use type: does not use caffeine: Yes Type: carbonated beverages Number of servings: 1 ROS Review of Systems ROS Unobtainable: due to encephalopathy Vital Signs Vital Signs Vital Signs: 02/13/24 16:21 02/13/24 16:21 02/13/24 17:20 Temperature 97.9 F 97.9 F Temperature Source Temporal Temporal Pulse Rate 117 H 131 H 140 H Respiratory Rate 19 H 17 Blood Pressure 243/136 H 172/115 H Blood Pressure Mean 171 134 Pulse Ox 97 96 96 Oxygen Delivery Method Room Air Room Air 02/13/24 17:22 02/13/24 18:00 02/13/24 19:00 Temperature Temperature Source Pulse Rate 143 H 121 H Respiratory Rate 18 Blood Pressure 187/106 H 92/45 L Blood Pressure Mean 133 60 Pulse Ox 98 97 98 Oxygen Delivery Method Room Air 02/13/24 20:00 Temperature Temperature Source Pulse Rate 127 H Respiratory Rate 16 Blood Pressure 106/62 Blood Pressure Mean 76 Pulse Ox 95 Oxygen Delivery Method Room Air Weight Weight: 75.2 kg Body Mass Index (BMI) 27.6 Physical Exam Const no apparent distress and average body habitus; Negative for healthy appearing Constitutional Narrative: Alert, lethargic, extremely confused, white female, lying in left side-lying, cooperates minimally with exam, at bedside, appears ill but not uncomfortable at this time HEENT normocephalic and head/scalp atraumatic; Negative for moist oral mucous membranes HEENT Narrative: Mucous membranes are dry, dentition is poor, Mallampati is 3, no thrush Eyes conjunctivae normal Eyes Narrative: No scleral icterus Neck supple Neck Narrative: Trachea midline Resp no retractions, no use of accessory muscles and clear to auscultation bilaterally Resp Narrative: Mild tachypnea, breath sounds are distant but clear Auscultation: Negative for rales, rhonchi or wheezes Cardio regular rhythm, S1 normal heart sound, S2 normal heart sound, no murmurs, no rub, no gallops and no clicks Cardio Narrative: Tachycardia that is sinus GI normal to inspection, nondistended, normoactive bowel sounds and soft to palpation GI Narrative: Mild diffuse tenderness noted with palpation Extremity no clubbing, cyanosis or edema Extremity Narrative: Pedal pulses are 2+ Skin Skin Narrative: Scattered ecchymosis and very stages of healing noted all over her arms and trunk/lower extremity- reports she has been falling quite a bit Neuro oriented x3, moves all extremities and no focal motor deficits Neuro Narrative: Speech is intelligible but somewhat garbled Psych Psych Narrative: Affect is flat, patient wants to interact minimally at this time Results Lab / Micro Data 02/13/24 16:47 02/13/24 16:47 Labs: Laboratory Results - last 24 hr 02/13/24 16:47: WBC 21.0 H, RBC 4.63, Hgb 13.7, Hct 43.8, MCV 94.6, MCH 29.6, MCHC 31.3 L, RDW Std Deviation 43.7, RDW Coeff of Gerhard 12.7, Plt Count 345, MPV 9.5, Immature Gran % (Auto) 0.900, Neut % (Auto) 88.7 H, Lymph % (Auto) 6.3 L, [place] % (Auto) 3.6, Eos % (Auto) 0.2, Baso % (Auto) 0.3, Absolute Neuts (auto) 18.6 H, Absolute Lymphs (auto) 1.33, Nucleated RBC % 0, PT 14.0, INR 1.1, APTT 22.4 L, Sodium 137, Potassium 4.1, Chloride 101, Carbon Dioxide 19.0 L, Anion Gap 17 H, BUN 16, Creatinine 1.29 H, Estim Creat Clear Calc 41.18, Est GFR (MDRD) Af Amer 53 L, Est GFR (MDRD) Non-Af 43 L, BUN/Creatinine Ratio 12.4, Glucose 374 H, Lactic Acid 8.7 H*, Calcium 9.8, Total Bilirubin 1.00, AST 18, ALT 17, Alkaline Phosphatase 104, Troponin I High Sens 17, Total Protein 7.9, Albumin 3.9, Globulin 4.0, Albumin/Globulin Ratio 1.0 02/13/24 18:46: Urine Color Yellow, Urine Clarity Clear, Urine pH 7.0, Ur Specific [place] 1.010, Urine Protein 500 H, Urine Glucose (UA) 1000 H, Urine Ketones 15 H, Urine Occult Blood 25 H, Urine Nitrite Negative, Urine Bilirubin Negative, Urine Urobilinogen Normal, Ur Leukocyte Esterase Negative, Urine RBC 0-5 SEEN, Urine WBC 0-5 SEEN, Ur Squamous Epith Cells 0 SEEN, Urine Bacteria 0 SEEN, Urine Mucus 0 SEEN Rhythm Strip Rhythm Strip: Sinus Tach Rate: 130 Ectopy: None Imaging Radiology Impression Brain CT 02/13/24 16:47 IMPRESSION: 1. No acute intracranial abnormality. There is been no significant change from reference exam. 2. Stable senescent change with small vessel ischemia. Electronically Signed: Star Ross MD at 18:03 EST , Cervical Spine CT 02/13/24 16:47 IMPRESSION: No acute osseous abnormalities of the cervical spine. There are mild degenerative changes with disc space narrowing. Electronically Signed: Star Ross MD at 18:12 EST , Chest X-Ray 02/13/24 17:10 IMPRESSION: No radiographic evidence of acute cardiopulmonary disease. Electronically Signed: Star Ross MD at 17:58 EST , Assessment & Plan Assessment/Plan (1) Acute lactic acidosis: (2) High anion gap metabolic acidosis: (3) DURAN (acute kidney injury): (4) Toxic metabolic encephalopathy: (5) Acute hyperglycemia: (6) Leukocytosis: (7) Sepsis: PLAN: Plan Sepsis secondary to unknown source however suspect urinary tract -Patient was treated with 30 cc/kg of body weight per sepsis protocol and meet sepsis criteria with altered mental status, metabolic acidosis, and lactic acidosis -Blood and urine cultures are pending -Check COVID/flu/RSV and respiratory viral panel given fever -UA was not consistent with infection but per she has been on what sounds like suppressive antibiotics since gi -Chest x-ray is unremarkable -Vancomycin and Zosyn initiated emergency department and will continue on admission -No significant resistance patterns noted on previous cultures -Will reevaluate after fluid boluses and antibiotics infused for need of pressors -Check CT of the abdomen and pelvis to rule out any obstructive pathology in the urinary tract -Consult critical care medicine -Patient did have recent admission with sepsis on 01/05/2024 due to E. coli UTI Acute anion gap metabolic acidosis -Highly suspect this is predominantly related to lactic acidosis -repeat BMP is pending after IV fluid infusion -Lactates will be cycled per protocol for sepsis Toxic/metabolic encephalopathy -Highly suspect secondary to the above -CT of the brain is unremarkable -Hold home gabapentin -Hold home oxybutynin -N.p.o. until mental status clears DM-2 with acute hyperglycemia -Most recent hemoglobin A1c was 12/31/2023 was 5.5 so patient is well-controlled at baseline and suspect acute elevation related to infection -Hold home glipizide -SSI for now--> high dose every 6 hours as patient is n.p.o. due to mental status at this point -May need basal insulin depending on blood sugar trends Leukocytosis -Markedly elevated at 21,000 -Like related to the above -Will monitor and should improve his infection is treated DURAN -Baseline serum creatinine is between 0.8 and 0.9 -At 1.29 on presentation -Aggressive hydration with sepsis protocol -Avoid nephrotoxins as able -Trend Upper GI bleed secondary to peptic ulcer disease/GERD -EGD performed on 01/04/2024 showed ulcers in the esophagus, duodenum, and gastric areas -Currently on Carafate and PPI -Hold Carafate till mental status improves and p.o. intake can be pursued -Protonix 40 mg IV push twice daily -No current signs of GI bleeding with normal hemoglobin History of Takotsubo cardiomyopathy -Patient does have issues with flash pulmonary edema previously -monitor closely with fluid resuscitation for sepsis but she does appear to need the full fluid boluses at this time as she clinically appears dry and labs are consistent with dehydration -Echocardiogram from 12/31/2023 showed an EF of 20% with severe segmental systolic dysfunction -Had diagnostic cath on 09/17/2023 that showed minimal coronary disease in the RCA, LAD, and 80% stenosis in the circumflex artery in the mid to distal AV groove branch and medical therapy was recommended at that time CAD/essential hypertension/hyperlipidemia -Hold home oral medications for now due to mental status -restart medications as able Adrenal nodule/splenic nodule -Outpatient follow-up Diabetic neuropathy -Hold home gabapentin due to altered mental status Urinary incontinence -Hold home oxybutynin due to mental status History of left-sided Prevotella empyema -No current acute issues History of opiate dependence -Remote -Avoid opiates as able Osteoporosis/vitamin D deficiency -Outpatient follow-up Restart vitamin D and alendronate at discharge History of tobacco abuse -Remote Depression/anxiety -Hold fluoxetine and BuSpar for now and reinitiate once patient able to take p.o. DVT prophylaxis -Subcu Lovenox 40 daily CODE STATUS -Full code as verified with her at the time of admission Sepsis Attestation Sepsis Alert: Yes Sepsis Attestation: Agree w/Sepsis Date exam was performed: 02/13/24 Time exam was performed: 21:12 Possible Source of Sepsis: Other (Unknown) Sepsis Organ Dysfunction Criteria Present: Lactic Acid > 2 mmol/L, Serum CO2 < 20 mmol/L (on BMP) and New/Unexplained change in mental status Fluid Resuscitation Fluid resuscitation indicated?: Yes Fluid Resuscitation ordered: 30 ml/kg fluid bolus ordered Amount of fluid ordered: 3,000 Charges/Coding Visit Charges Inpatient E&M: 85571 Init Hosp L3
[2024-02-13] MEDS: Vancomycin HCl 2,000 MG in 0.9% Normal Saline (500mL Bag) 500 ML 250 MG IV (21:24)
--- NOTE | 2024-02-13 21:46 | ED.RN ---
Report called to [employer], questions/concerns answered
--- NOTE | 2024-02-13 21:58 | CT_ITS ---
EXAM: CT ABDOMEN AND PELVIS WITHOUT INTRAVENOUS CONTRAST CLINICAL INDICATION: abdominal pain/Nausea and vomiting TECHNIQUE: Helically acquired images were obtained of the abdomen and pelvis without intravenous contrast. This CT exam was performed using one or more of the following dose reduction techniques: automated exposure control, adjustment of the mA and/or kV according to patient size, and/or use of iterative reconstruction technique. COMPARISON: 12/30/2023 FINDINGS: LOWER THORAX: Unremarkable. Lung bases are clear. No cardiomegaly. No significant pericardial effusion. ABDOMEN: LIVER: Unremarkable. Homogeneous. GALLBLADDER AND BILE DUCTS: Unremarkable. No calcified gallstones. No gallbladder distention or wall edema. No intra- or extrahepatic biliary ductal dilation. PANCREAS: Unremarkable. No focal cystic mass. SPLEEN: Unremarkable. Normal size without focal cystic or solid mass. ADRENALS: Unremarkable. No nodules. KIDNEYS AND URETERS: There are fluid density masses in the kidneys compatible with cysts. No follow-up imaging is necessary. Normal renal size and position. No hydronephrosis. STOMACH AND BOWEL: Unremarkable. No stomach or bowel distention. No focal inflammatory change. PELVIS: APPENDIX: No evidence of acute appendicitis. BLADDER: Unremarkable. REPRODUCTIVE: Unremarkable as visualized. No mass. ABDOMEN and PELVIS: INTRAPERITONEAL SPACE: Unremarkable. No ascites or other fluid collection. No free air. BONES/JOINTS: There is beam hardening artifact due to a left hip replacement hardware across an old right hip fracture. No suspicious lytic or blastic abnormality. SOFT TISSUES: Unremarkable. No discrete abdominal or pelvic wall hernia. VASCULATURE: Unremarkable. Abdominal aorta is non-dilated. LYMPH NODES: Unremarkable. No enlarged lymph nodes. CT/Abdomen/Pelvis without Cont IMPRESSION: No acute findings in the abdomen or pelvis. Electronically Signed: Star Ross MD at 22:40 EST ,
--- NOTE | 2024-02-13 22:50 | ED.RN ---
This RN notified DR. vancomycin was stopped due to pt having redness around iv site and rash around neck and chest. No new orders at this time.
--- NOTE | 2024-02-13 23:58 | PCM.RX.CS ---
Consult Antibiotic Management Pharmacy has been consulted to manage selected antibiotic: Vancomycin Type of Intervention Type of Consult: New start Suspected Infection Suspected Infection: Sepsis Labs Labs: Sodium 137 mmol/L (136-145) 02/13/24 16:47 Potassium 4.1 mmol/L (3.5-5.1) 02/13/24 16:47 Chloride 101 mmol/L (98-107) 02/13/24 16:47 Carbon Dioxide 19.0 mmol/L (21.0-32.0) L 02/13/24 16:47 Anion Gap 17 (5-15) H 02/13/24 16:47 BUN 16 mg/dL (7-18) 02/13/24 16:47 Creatinine 1.29 mg/dL (0.55-1.02) H 02/13/24 16:47 Est GFR (MDRD) Af Amer 53 mL/min (>60) L 02/13/24 16:47 Est GFR (MDRD) Non-Af 43 mL/min (>60) L 02/13/24 16:47 BUN/Creatinine Ratio 12.4 RATIO (10-20) 02/13/24 16:47 Glucose 374 mg/dL (74-106) H 02/13/24 16:47 Dosing Weight Weight used for dosin.2 kg Estimated Creatinine Clearance Estimated Creatinine Clearance: 41 Goal Trough Goal Trough: 15-20 mcg/mL Pharmacy Plan for Drug Dosing Pharmacy Plan for Drug Dosing: Pharmacy Service will continue to monitor and adjust dosing as required. Follow-Up Labs Follow-Up Labs: Trough: Vancomycin Date/Time Labs Ordered Labs to be done on [date and time ordered]: 02/15/24 @0900
[2024-02-14] VITALS (18 sets, daily range): BP systolic 119–198; BP diastolic 57–103; PULSE 105–139; RESP 18–30; TEMP 36.8–37.8; O2SAT 95–100
--- NOTE | 2024-02-14 00:20 | NURSING ---
pt came up from ed, with a rash on face, shoulders, neck, and upper chest. ed nurse states that she thinks it was from the vanc so she stoped it and told ed doctor, ed nurse thinks the vanc ran for about an hour. dr holman notified. will monitor
[2024-02-14 00:30] LABS: Base Excess -6 mmol/L (-2 to +2); Blood Gas Specimen Type ART; Mode Not entered; O2 Delivery Device Room Air; PO2 76 mmHG (75-100); SITE L Radial; SO2 96 % (95-99); Total Carbon Dioxide 18 mmol/L; pCO2 22.4 mmHg (35-45); pH 7.49 (7.35-7.45)
[2024-02-14 00:32] LABS: Bedside Glucose 271 mg/dL (74-106)
[2024-02-14] MEDS: Insulin Lispro 100 UNIT/ML INSULN.PEN SC ×2 (00:32→06:18)
[2024-02-14] MEDS: Pantoprazole Sodium 40 MG in 0.9% Normal Saline (100mL MB+) 100 ML 330 MG IV ×3 (00:32→21:28)
--- NOTE | 2024-02-14 00:48 | PCM.HOSP.N ---
Hospitalist Note Patient developed rash related to vancomycin infusion. This was discontinued. Will hold MRSA coverage as patient does not have history and typically her sepsis is related to the gram-negative UTIs. Check MRSA PCR. Sepsis Attestation Sepsis Note Date exam was performed: 02/14/24 Time exam was performed: 00:49 Sepsis Attestation: Sepsis re-evaluation was performed (IV fluids were stopped early with patient's history of cardiomyopathy and blood pressure trended back up significantly.)
[2024-02-14 01:16] LABS: Procalcitonin 0.33 ng/mL (0.00-0.09)
[2024-02-14 01:28] LABS: Anion Gap 9 (5-15); BUN 11 mg/dL (7-18); BUN/Creat Ratio 22.5 RATIO (10-20); Calcium,Total < 5.0 mg/dL (8.5-10.1); Chloride 125 mmol/L (98-107); Creatinine, Serum 0.49 mg/dL (0.55-1.02); EST Glomerular Filtration Rate 133 mL/min (>60); Est Glom Filt Rate - Afr Amer 161 mL/min (>60); Glucose 192 mg/dL (74-106); Potassium 2.3 mmol/L (3.5-5.1); Sodium Level 148 mmol/L (136-145)
--- NOTE | 2024-02-14 01:30 | NURSING ---
lab called critical lab work, dr holman wants shelby work redrawn d/t poss dilution. will attempt to get new labs
[2024-02-14 01:53] LABS: Lactic Acid 3.8 mmol/L (0.4-1.9)
--- NOTE | 2024-02-14 02:28 | NURSING ---
3 rns attempted to get an IV in pt. and bld work with not success, dr Quigley came to the floor and put in two ivs via u/s attempted to drawl lab work off ivs and they both blew when flushed, blood work not obtained.
[2024-02-14] MEDS: CHLORHEXIDINE GLUC 2% CLOTH 1 EACH TOWELETTE TOPICAL (03:14)
[2024-02-14 03:33] LABS: AST(SGOT) 25 U/L (15-37); Alanine Aminotransfer ALT/SGPT 19 U/L (13-56); Albumin, Serum 3.8 g/dL (3.2-5.0); Alkaline Phosphatase 96 U/L (45-117); Anion Gap 14 (5-15); BUN 15 mg/dL (7-18); BUN/Creat Ratio 12.3 RATIO (10-20); Calcium,Total 9.1 mg/dL (8.5-10.1); Chloride 104 mmol/L (98-107); Creatinine, Serum 1.22 mg/dL (0.55-1.02); EST Glomerular Filtration Rate 46 mL/min (>60); Est Glom Filt Rate - Afr Amer 56 mL/min (>60); Estimated Creatinine Clearance 41.78 ml/min; Globulin 3.8 g/dL (2.2-4.2); Glucose 308 mg/dL (74-106); Magnesium 1.5 mg/dL (1.6-2.6); Phosphorus 2.2 mg/dL (2.5-4.9); Potassium 3.7 mmol/L (3.5-5.1); Protein, Total 7.6 g/dL (6.4-8.2); Sodium Level 135 mmol/L (136-145)
--- NOTE | 2024-02-14 03:46 | PCM.HOSP.N ---
Hospitalist Note Central Venous Catheter Indication: Poor IV access (pt blew 2 peripherally placed 20 gauge US guided IV's) Consent was obtained from: emergent A time-out was completed verifying correct patient, procedure, site, positioning, and special equipment if applicable. The patient was placed in a dependent position appropriate for central line placement based on the vein to be cannulated. The patient's R groin was prepped and draped in a sterile fashion. 1% lidocaine was used to anesthetize the surrounding skin area. A triple-lumen catheter was introduced into the right femoral vein using the Seldinger technique and under ultrasound guidance. The catheter was threaded smoothly over the guidewire and appropriate blood return was obtained. Each lumen of the catheter was evacuated of air and flushed with sterile saline. The catheter was then sutured in place to the skin and a sterile dressing applied. ULTRASOUND GUIDANCE STATEMENT (Vascular Access): I performed ultrasound image acquisition and interpretation for needle placement during the procedure. The vessel was identified and found to be free of thrombosis by compression technique. A safe point of entry was marked at the skin in an angle for axis was determined. The needle was guided by obtaining free-flowing fluid and by real-time visualization. Femoral site utilized due to patient's agitation as it was felt this would be safer than utilizing subclavian or IJ due to high risk of pneumothorax Procedures Hospitalists Procedures: 28764 US Guide Vascular Access
[2024-02-14 05:09] LABS: M R Staph aureus DNA By PCR Negative (Negative); Probe Check PASS; Specimen Processing Control PASS
[2024-02-14] MEDS: 0.9% Saline Lock 10 ML Syringe IV ×2 (05:10→23:15)
[2024-02-14] MEDS: Piperacil/Tazobactam 3.375 GM in 0.9% Normal Saline (50mL MB+) 50 ML IV ×3 (05:12→21:37)
[2024-02-14] MEDS: Haloperidol Lactate 5 MG/ML Vial 2 MG IV ×2 (05:13→13:16)
[2024-02-14 06:35] LABS: Absolute Lymphocyte Count 1.44 X10^3/uL (0.83-4.51); Absolute Neutrophil Count 18.6 X10^3/uL (2.0-7.7); Basophil# 0.02 X10^3/uL; Basophil% 0.1 % (0-1); Eosinophil# 0.01 X10^3/uL; Hematocrit 42.7 % (37-47); Lymphocyte # 1.44 X10^3/ul (0.83-4.51); Lymphocyte % 6.7 % (19-41); Mean Corp Hgb Conc 32.8 g/dL (32-36); Mean Corpuscular Hgb 29.5 pg (27.0-32.0); Mean Corpuscular Volume 89.9 fL (81-99); Mean Platelet Vol. 9.3 fl (6.2-12.0); Monocyte% 6.5 % (0-10); NRBC Flagged by Analyzer 0 % (0-5); Platelet Count 335 K/mm3 (150-450); RBC Distribution Width CV 13.1 % (11.6-14.6); RBC Distribution Width SD 42.8 fl (35.1-43.9); Red Blood Count 4.75 M/mm3 (4.2-5.4); White Blood Count 21.6 K/mm3 (4.4-11.0)
[2024-02-14 06:38] LABS: Bedside Glucose 205 mg/dL (74-106)
--- NOTE | 2024-02-14 07:03 | EX.PCM.CONCC ---
Assessment & Plan Assessment/Plan (1) Sepsis: (2) Toxic metabolic encephalopathy: PLAN: Plan RECOMMENDATIONS: 1. Continue empiric antimicrobials, pending infectious workup. 2. Continue appropriate DVT prophylaxis. 3. Continue PPI therapy. 4. Continue to hold sedating medications. 5. Aggressive electrolyte repletion. 6. The patient is medically stable for transfer out of the intensive care unit. IMPRESSIONS: 1. Sepsis The patient presented to the hospital with sepsis due to suspected urinary tract source of infection with acute sepsis related organ dysfunction as evidenced by altered mental status and lactic acidosis. The patient did receive supplemental IV fluid hydration, but has never been hemodynamically unstable. She has been initiated on appropriate antimicrobial therapy. Plan to continue current supportive measures, pending infectious workup. No other potential sources of infection have yet to be identified. 2. Toxic/metabolic encephalopathy Suspect related to #1. CT head was unremarkable. Continue to hold sedating medications, including home gabapentin. 3. Acute kidney injury Most likely prerenal in etiology in setting of #1. Continue to monitor urine output for now. No current indication for renal replacement therapy. 4. History of GI bleed/history of Takotsubo cardiomyopathy/hypertension/hyperlipidemia/paroxysmal atrial fibrillation Complicates care, management, recovery and prognosis. Continue home medications as indicated. The patient should remain n.p.o. for now pending improvement in her mental status. She will require eventual PT/OT evaluations, once medically stabilized. This note was generated with [employer] dictation software. It may contain incorrect words, spelling, and punctuation that were not noted in checking the note before signing. HPI Consult Data Date of Consult: 02/14/24 HPI Narrative Reason for Consultation: Sepsis HPI Narrative: The patient is a 68-year-old female, with a history as outlined below, who presented to the emergency department on February 12 with altered mental status and fall. The patient has a known history of reflux esophagitis, gastric and duodenal ulcers, Takotsubo cardiomyopathy, hypertension, hyperlipidemia, paroxysmal atrial fibrillation, diabetes mellitus and obstructive sleep apnea. The patient was last admitted to the hospital December 29 through with respiratory failure, NSTEMI, acute decompensated heart failure, E. coli UTI and gastrointestinal bleed. On presentation to the emergency department, the patient was documented to be afebrile, but was tachycardic and hypertensive. Laboratory evaluation revealed an elevated white blood cell count of 21,000. Chemistry profile was notable for a bicarbonate of 19, anion gap of 17 and creatinine of 1.29. Initial lactate was elevated at 8.7. TSH was within normal limits. Procalcitonin was mildly elevated at 0.3. Urine analysis was negative for nitrites and leukocyte esterase. Blood and urine cultures were collected. CT head demonstrated no acute findings with stigmata of small vessel ischemia. CT C-spine was unremarkable. Chest x-ray demonstrated no acute cardiopulmonary process. CT abdomen/pelvis was unremarkable. Arterial blood gas obtained on room air demonstrated a pH of 7.49 with a pCO2 of 22 and pO2 of 76. The patient did receive supplemental IV fluids and was placed on empiric antimicrobials. She was ultimately admitted to the medical intensive care unit for further management. Overnight, due to inadequate IV access, a femoral central venous catheter was placed without complication. Although the patient continues to demonstrate altered mental status, she has remained clinically stable. [facility] Medical History Myocardial infarction type 2 Non-ST elevation AR (NSTEMI) Hiatal hernia Irritable bowel Back pain due to injury Restless legs Injury of head and neck High cholesterol Hearing loss, right Bipolar disorder Depression Anxiety GERD (gastroesophageal reflux disease) Former smoker Sleep apnea Atrial fibrillation Migraines Dementia Closed intertrochanteric fracture of left hip Psoriatic arthritis Nonobstructive atherosclerosis of coronary artery Obesity Type 2 diabetes mellitus Takotsubo syndrome Hyperlipidemia Essential (primary) hypertension NSTEMI (non-ST elevated myocardial infarction) (01/06/18) Home Medications ?Medication ?Instructions ?Recorded ?Last Taken ?Type alendronate 70 mg tablet 70 mg PO SA osteoporosis 01/06/18 Unknown History buspirone 7.5 mg tablet 15 mg PO BID anxiety 01/06/18 Unknown History fluoxetine 40 mg capsule 40 mg PO BID anxiety 01/06/18 Unknown History glipizide 5 mg tablet 10 mg PO DAILY antidiabetic 01/06/18 Unknown History ergocalciferol (vitamin D2) 1,250 50,000 unit PO .COMPLEX supplement 02/12/19 Unknown History mcg (50,000 unit) capsule gabapentin 100 mg capsule 100 mg PO Q8H pain 04/14/23 01/04/24 History ondansetron 4 mg disintegrating 4 mg PO TID PRN nausea and 04/14/23 Unknown Rx tablet vomiting #21 tabs oxybutynin chloride 10 mg 20 mg PO DAILY bladder 04/14/23 Unknown History tablet,extended release 24 hr simvastatin 40 mg tablet 40 mg PO DAILY cholesterol 04/14/23 Unknown History turmeric 1 cap PO DAILY supplement 04/14/23 Unknown History aspirin 81 mg tablet,delayed 81 mg PO BREAKFAST 30 days #30 tabs 09/20/23 Unknown Rx release carvedilol 3.125 mg tablet 3.125 mg PO BID 30 days #60 tabs 01/05/24 Unknown Rx pantoprazole 40 mg tablet,delayed 40 mg PO BID 30 days #60 tabs 01/05/24 Unknown Rx release (Protonix) sucralfate 1 gram tablet (Carafate) 1 g PO ACHS #120 tabs 01/05/24 Unknown Rx Allergy/AdvReac Type Severity Reaction Status Date / Time morphine Allergy Mild confusion Verified 02/13/24 16:26 codeine Allergy Itching Verified 02/13/24 16:26 fentanyl AdvReac confusion Verified 02/13/24 16:26 naproxen AdvReac Other Verified 02/13/24 16:26 Family History Mother Cancer skin Father Cancer prostate Surgical History History of back surgery History of carpal tunnel release of both wrists History of hysterectomy History of left heart catheterization (01/07/18) Social History household members: spouse Smoking Status: Former smoker how long ago did patient quit smokin years ago alcohol intake: never substance use type: does not use caffeine: Yes Type: carbonated beverages Number of servings: 1 ROS Review of Systems ROS Unobtainable: due to mental status Physical Exam Const alert General Appearance: lethargic and ill appearing HEENT normocephalic and head/scalp atraumatic HEENT Narrative: Dry mucous membranes Teeth and Gingiva: poor dentition Eyes EOMs intact bilaterally, conjunctivae normal and no scleral icterus Neck supple General: trachea midline Chest inspection of chest normal Resp normal respiratory effort Auscultation: Negative for rales, rhonchi or wheezes Cardio regular rate and regular rhythm GI normal to inspection, nondistended, normoactive bowel sounds Extremity no clubbing, cyanosis or edema Skin no rashes or lesions noted Neuro CN's II-XII intact bilaterally and no focal motor deficits Psych Mood & Affect: flat affect Lab / Micro Data 02/14/24 06:20 02/14/24 02:20 Labs: Laboratory Results - last 24 hr 02/13/24 16:47: WBC 21.0 H, RBC 4.63, Hgb 13.7, Hct 43.8, MCV 94.6, MCH 29.6, MCHC 31.3 L, RDW Std Deviation 43.7, RDW Coeff of Gerhard 12.7, Plt Count 345, MPV 9.5, Immature Gran % (Auto) 0.900, Neut % (Auto) 88.7 H, Lymph % (Auto) 6.3 L, [place] % (Auto) 3.6, Eos % (Auto) 0.2, Baso % (Auto) 0.3, Absolute Neuts (auto) 18.6 H, Absolute Lymphs (auto) 1.33, Nucleated RBC % 0, PT 14.0, INR 1.1, APTT 22.4 L, Sodium 137, Potassium 4.1, Chloride 101, Carbon Dioxide 19.0 L, Anion Gap 17 H, BUN 16, Creatinine 1.29 H, Estim Creat Clear Calc 41.18, Est GFR (MDRD) Af Amer 53 L, Est GFR (MDRD) Non-Af 43 L, BUN/Creatinine Ratio 12.4, Glucose 374 H, Lactic Acid 8.7 H*, Calcium 9.8, Total Bilirubin 1.00, AST 18, ALT 17, Alkaline Phosphatase 104, Troponin I High Sens 17, Total Protein 7.9, Albumin 3.9, Globulin 4.0, Albumin/Globulin Ratio 1.0 02/13/24 18:46: Urine Color Yellow, Urine Clarity Clear, Urine pH 7.0, Ur Specific [place] 1.010, Urine Protein 500 H, Urine Glucose (UA) 1000 H, Urine Ketones 15 H, Urine Occult Blood 25 H, Urine Nitrite Negative, Urine Bilirubin Negative, Urine Urobilinogen Normal, Ur Leukocyte Esterase Negative, Urine RBC 0-5 SEEN, Urine WBC 0-5 SEEN, Ur Squamous Epith Cells 0 SEEN, Urine Bacteria 0 SEEN, Urine Mucus 0 SEEN 02/13/24 23:53: POC Glucose 271 H 02/14/24 00:40: Sodium 148 H, Potassium 2.3 L*, Chloride 125 H, Carbon Dioxide 14.0 L, Anion Gap 9, BUN 11, Creatinine 0.49 L, Estim Creat Clear Calc 66.40, Est GFR (MDRD) Af Amer 161, Est GFR (MDRD) Non-Af 133, BUN/Creatinine Ratio 22.5 H, Glucose 192 H, Calcium < 5.0 L*, Ammonia 13.0, Procalcitonin 0.33 H 02/14/24 01:00: Lactic Acid 3.8 H* 02/14/24 02:20: Sodium 135 L, Potassium 3.7, Chloride 104, Carbon Dioxide 18.0 L, Anion Gap 14, BUN 15, Creatinine 1.22 H, Estim Creat Clear Calc 41.78, Est GFR (MDRD) Af Amer 56 L, Est GFR (MDRD) Non-Af 46 L, BUN/Creatinine Ratio 12.3, Glucose 308 H, Calcium 9.1, Phosphorus 2.2 L, Magnesium 1.5 L, Total Bilirubin 1.20 H, AST 25, ALT 19, Alkaline Phosphatase 96, Total Protein 7.6, Albumin 3.8, Globulin 3.8, Albumin/Globulin Ratio 1.0, TSH 2.180 02/14/24 03:44: MRSA (PCR) Negative 02/14/24 06:17: POC Glucose 205 H 02/14/24 06:20: WBC 21.6 H, RBC 4.75, Hgb 14.0, Hct 42.7, MCV 89.9, MCH 29.5, MCHC 32.8, RDW Std Deviation 42.8, RDW Coeff of Gerhard 13.1, Plt Count 335, MPV 9.3, Immature Gran % (Auto) 0.700, Neut % (Auto) 86.0 H, Lymph % (Auto) 6.7 L, [place] % (Auto) 6.5, Eos % (Auto) 0.0, Baso % (Auto) 0.1, Absolute Neuts (auto) 18.6 H, Absolute Lymphs (auto) 1.44, Nucleated RBC % 0 Micro: Microbiology 02/14/24 03:44 Nasal Secretion SARS-CoV-2 Antigen (Rapid) - Final 02/14/24 00:04 Mucosa - Nasopharyngeal Respiratory Panel (PCR) - Final ABG Data ABG results: ABG 02/14/24 00:27 Specimen Type ART Sample Site L Radial pH 7.49 H Bicarbonate Actual 17.0 L Total CO2 18 Base Excess -6 L O2 Saturation 96 O2 % 21.0 ABG pCO2 22.4 L ABG pO2 76 Vaughn Test N/A O2 Delivery Device Room Air Vent Mode Not entered Rhythm Strip Rhythm Strip: Sinus Tach Rate: 130 Ectopy: None Imaging Radiology Impression Brain CT 02/13/24 16:47 IMPRESSION: 1. No acute intracranial abnormality. There is been no significant change from reference exam. 2. Stable senescent change with small vessel ischemia. Electronically Signed: Star Ross MD at 18:03 EST , Cervical Spine CT 02/13/24 16:47 IMPRESSION: No acute osseous abnormalities of the cervical spine. There are mild degenerative changes with disc space narrowing. Electronically Signed: Star Ross MD at 18:12 EST , Chest X-Ray 02/13/24 17:10 IMPRESSION: No radiographic evidence of acute cardiopulmonary disease. Electronically Signed: Star Ross MD at 17:58 EST , Abdomen/Pelvis CT 02/13/24 21:58 IMPRESSION: No acute findings in the abdomen or pelvis. Electronically Signed: Star Ross MD at 22:40 EST , Charges/Coding Visit Charges Inpatient E&M: 39321 Init Hosp L3
--- NOTE | 2024-02-14 09:22 | CASEMGMT ---
Pt is currently disoriented and unable to answer this RN CM questions for assessment. TC to pt , no answer. VM left. TC to pt daughter, Pam. 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 However, Pam states that she is at an appt and will call this RN CM back to discuss the initial assessment. Will follow.
[2024-02-14] MEDS: Potassium Phosphate 30 MM in 0.9% Normal Saline (250mL Bag) 250 ML 42 MM IV (09:38)
[2024-02-14] MEDS: Enoxaparin 40 MG/0.4 ML Syringe SC (09:38)
[2024-02-14] MEDS: Magnesium Sulfate 2 GM in Dextrose 5%-Water (100mL Bag) 100 ML IV (09:38)
[2024-02-14] MEDS: Nystatin Powder 15gm Bottle 1 APPLIC TOPICAL ×2 (09:38→21:27)
--- NOTE | 2024-02-14 09:45 | CASEMGMT ---
Social Work- SW participated in interdisciplinary rounds on pt. Pt not oriented and does not follow commands; pt family to be contacted by RNCM. Pt is PCU status. PCU SW updated on pt status. CARMEN Owens
--- NOTE | 2024-02-14 11:01 | PN_ITS ---
Subjective Subjective Patient seen and examined. She was restless and confused. Unable to do review of systems. She remains tachycardic and tachypneic. She is on room air. Objective Data Objective Data Vital Signs: Vital Signs Temp Pulse Resp BP Pulse Ox O2 Del Method 98.5 F 112 H 22 H 156/84 H 97 Room Air 02/14/24 09:36 02/14/24 09:36 02/14/24 09:36 02/14/24 09:36 02/14/24 09:36 02/14/24 09:36 Oxygen Delivery Method Room Air Weight: 151 lb 7.321 oz Body Mass Index (BMI) 25.2 Intake & Output: Intake and Output for Last 24 Hours 02/12/24 02/13/24 02/14/24 23:59 23:59 23:59 Intake Total 2875 / 2875 270 / 270 Balance 2875 / 2875 270 / 270 Lab / Micro Data 02/14/24 06:20 02/14/24 02:20 Labs: Laboratory Results - last 24 hr 02/13/24 16:47: WBC 21.0 H, RBC 4.63, Hgb 13.7, Hct 43.8, MCV 94.6, MCH 29.6, M CHC 31.3 L, RDW Std Deviation 43.7, RDW Coeff of Gerhard 12.7, Plt Count 345, MPV 9.5, Immature Gran % (Auto) 0.900, Neut % (Auto) 88.7 H, Lymph % (Auto) 6.3 L, [place] % (Auto) 3.6, Eos % (Auto) 0.2, Baso % (Auto) 0.3, Absolute Neuts (auto) 18.6 H, Absolute Lymphs (auto) 1.33, Nucleated RBC % 0, PT 14.0, INR 1.1, APTT 22.4 L, Sodium 137, Potassium 4.1, Chloride 101, Carbon Dioxide 19.0 L, Anion Gap 17 H, BUN 16, Creatinine 1.29 H, Estim Creat Clear Calc 41.18, Est GFR (MDRD) Af Amer 53 L, Est GFR (MDRD) Non-Af 43 L, BUN/Creatinine Ratio 12.4, G lucose 374 H, Lactic Acid 8.7 H*, Calcium 9.8, Total Bilirubin 1.00, AST 18, ALT 17, Alkaline Phosphatase 104, Troponin I High Sens 17, Total Protein 7.9, Albumin 3.9, Globulin 4.0, Albumin/Globulin Ratio 1.0 02/13/24 18:46: Urine Color Yellow, Urine Clarity Clear, Urine pH 7.0, Ur Specific [place] 1.010, Urine Protein 500 H, Urine Glucose (UA) 1000 H, Urine Ketones 15 H, Urine Occult Blood 25 H, Urine Nitrite Negative, Urine Bilirubin Negative, Urine Urobilinogen Normal, Ur Leukocyte Esterase Negative, Urine RBC 0-5 SEEN, Urine WBC 0-5 SEEN, Ur Squamous Epith Cells 0 SEEN, Urine Bacteria 0 SEEN, Urine Mucus 0 SEEN 02/13/24 23:53: POC Glucose 271 H 02/14/24 00:40: Sodium 148 H, Potassium 2.3 L*, Chloride 125 H, Carbon Dioxide 14.0 L, Anion Gap 9, BUN 11, Creatinine 0.49 L, Estim Creat Clear Calc 66.40, Est GFR (MDRD) Af Amer 161, Est GFR (MDRD) Non-Af 133, BUN/Creatinine Ratio 22.5 H, Glucose 192 H, Calcium < 5.0 L*, Ammonia 13.0, Procalcitonin 0.33 H 02/14/24 01:00: Lactic Acid 3.8 H* 02/14/24 02:20: Sodium 135 L, Potassium 3.7, Chloride 104, Carbon Dioxide 18.0 L , Anion Gap 14, BUN 15, Creatinine 1.22 H, Estim Creat Clear Calc 41.78, Est GFR (MDRD) Af Amer 56 L, Est GFR (MDRD) Non-Af 46 L, BUN/Creatinine Ratio 12.3, G lucose 308 H, Calcium 9.1, Phosphorus 2.2 L, Magnesium 1.5 L, Total Bilirubin 1.20 H, AST 25, ALT 19, Alkaline Phosphatase 96, Total Protein 7.6, Albumin 3.8, Globulin 3.8, Albumin/Globulin Ratio 1.0, TSH 2.180 02/14/24 03:44: MRSA (PCR) Negative 02/14/24 06:17: POC Glucose 205 H 02/14/24 06:20: WBC 21.6 H, RBC 4.75, Hgb 14.0, Hct 42.7, MCV 89.9, MCH 29.5, MCHC 32.8, RDW Std Deviation 42.8, RDW Coeff of Gerhard 13.1, Plt Count 335, MPV 9.3, Immature Gran % (Auto) 0.700, Neut % (Auto) 86.0 H, Lymph % (Auto) 6.7 L, [place] % (Auto) 6.5, Eos % (Auto) 0.0, Baso % (Auto) 0.1, Absolute Neuts (auto) 18.6 H, Absolute Lymphs (auto) 1.44, Nucleated RBC % 0 Micro: Microbiology 02/13/24 18:46 Urine Catheter - Catheter Urine Culture - Preliminary GPC Poss Enterococcus sp 02/14/24 03:44 Nasal Secretion SARS-CoV-2 Antigen (Rapid) - Final 02/14/24 00:04 Mucosa - Nasopharyngeal Respiratory Panel (PCR) - Final ABG Data ABG results: ABG 02/14/24 00:27 Specimen Type ART Sample Site L Radial pH 7.49 H Bicarbonate Actual 17.0 L Total CO2 18 Base Excess -6 L O2 Saturation 96 O2 % 21.0 ABG pCO2 22.4 L ABG pO2 76 Vaughn Test N/A O2 Delivery Device Room Air Vent Mode Not entered Radiography Diagnostic Testing: Radiology Impression Brain CT 02/13/24 16:47 IMPRESSION: 1. No acute intracranial abnormality. There is been no significant change from reference exam. 2. Stable senescent change with small vessel ischemia. Electronically Signed: Star Ross MD at 18:03 EST , Cervical Spine CT 02/13/24 16:47 IMPRESSION: No acute osseous abnormalities of the cervical spine. There are mild degenerative changes with disc space narrowing. Electronically Signed: Star Ross MD at 18:12 EST , Chest X-Ray 02/13/24 17:10 IMPRESSION: No radiographic evidence of acute cardiopulmonary disease. Electronically Signed: Star Ross MD at 17:58 EST , Abdomen/Pelvis CT 02/13/24 21:58 IMPRESSION: No acute findings in the abdomen or pelvis. Electronically Signed: Star Ross MD at 22:40 EST , Rhythm Strip Rhythm Strip: Sinus Tach Rate: 130 Ectopy: None Physical Exam Const alert Constitutional Narrative: confused, restless Orientation / Consciousness: confused HEENT normocephalic and head/scalp atraumatic HEENT Narrative: dry oral mucosa Eyes PERRL and EOMs intact bilaterally Neck no lymphadenopathy and supple Lymph Lymphatic: no lymphadenopathy noted and no lymphedema noted Resp Resp Narrative: mildly diminished breath sounds bibasally, no wheezes or crackles. On room air. Cardio regular rate, regular rhythm, S1 normal heart sound, S2 normal heart sound and no murmurs GI normal to inspection, nondistended, normoactive bowel sounds, soft to palpation, non-tender and non-distended Extremity normal capillary refill, no clubbing, cyanosis or edema and no calf tenderness General Extremity: no tenderness to palpation of joints or extremities Skin General Skin Exam: no breakdown Neuro CN's II-XII intact bilaterally, no focal motor deficits and no sensory deficits noted Motor Exam: general weakness Psych Psych Narrative: confused, lethargic Assessment & Plan Assessment/Plan (1) Sepsis: (2) Leukocytosis: (3) Toxic metabolic encephalopathy: (4) DURAN (acute kidney injury): PLAN: Plan #Sepsis of unclear etiology * remains tachycardic and tachypneic * on IV vancomycin and zosyn * remains confused and lethargic * blood cultures pending. * she developed a rash oernight due to the vancomycin infusion. Vancomycin therefore stopped. * continue with IV zosyn * covid, influenza and RSV negative * had been on suppressive antibiotics for UTI * critical care on board. WBCs 21.6 today. * Urine culture growing gram-positive coccus possibly Enterococcus species. * #Acute encephalopathy * remains confused and lethargic * CT brain showed no acute intracranial pathology * gabapentin and oxybutinin on hold #DURAN: * Likely pre-renal due to decreased intake. * Hold and avoid nephrotoxins. Trend Cr. * Creatinine is 1.2 to today. Was 1.29 on admission. #Lactic acidosis: Lactic acid is 3.8. #Hypomagnesemia and hypophosphatemia * being aggressively replaced * will trend electrolytes. #Type 2 diabetes mellitus * has acute hyperglycemia * A1C is 5.5. * on ISS> Accuchecks q6hrly as patient is NPO * glipizide on hold * #History of Upper GI bleed * This was due to peptic ulcer disease. Had EGD December 2023 which showed esophageal, duodenal and gastric ulcers. * On Carafate and PPI #History of Takotsubo cardiomyopathy. * Has had flash pulmonary edema in the past. Has known EF of 20% with severe segmental systolic dysfunction from echo in December 2023. * Cardiac cath in September 2023 showed minimal coronary disease in the RCA and LAD and 80% stenosis in the circumflex artery in the mid to distal AV groove branch. Medical management was recommended then. * Oral meds on hold due to encephalopathy #Hypertension:BP meds on hold as she is not taking in orally. resume when she is able to take in orally. #Hyperlipidemia: On a statin. This on hold as patient is confused and encephalopathic #History of adrenal and splenic nodule: Follow-up with PCP on outpatient basis for further workup as needed #Depression and anxiety: Fluoxetine and BuSpar on hold as she is not able to taking them.. Will resume when she is able to take in orally DVT prophylaxis: Lovenox Charges/Coding Visit Charges Inpatient E&M: 30649 Subs Hosp L3
--- NOTE | 2024-02-14 12:08 | CASEMGMT ---
Addendum entered by Marissa Adhikari 02/14/24 14:12: Regarding pt Palliative Care Services, [facility] returns e-mail states that It looks like they received a bill for our services and were unwilling to let the provider come back. Original Note: RN CM Assessment Pt is currently disoriented and unable to answer this RN CM questions for assessment. TC to pt , no answer. VM left. TC to pt daughter, Pam. 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 Joo states that my parents are irresponsible and don't take good care of themselves. Pam states that she is agreeable to answering this RN CM questions for initial assessment. Care providers, pharmacy, and demographics verified. Admitting dx: Sepsis, Unknown origin LACE Strata: 3 PCP: Rupal Boyer Specialists: Denies Preferred Pharmacy: [facility] Insurance: [facility]/[employer] Prescription Benefit: Yes LNOK: Pam Bernstein (Daughter), Eduardo Benavidez (H) Living Arrangements: Pt lives with her in a mobile home with a ramp to enter ADLs/IADLs: Pam states that the pt requires help at home and that it is only getting worse and I am not sure how much help my dad can give. Transportation: Pam states that the pt drives occasionally and that this concerns her. Pt drives. DME: Ramp, WC, FWW, shower bench, BGM with sufficient supplies. Per chart review, during the previous pt stay, the pt preferred [employer] if she were to qualify for home oxygen. At the time,the pt did not qualify. CM to follow. Pt also has a Medical alert system through [facility]: TC to [facility] at this time who states that the pt is only active with a medical alert system and that she discontinued the home delivered meals as well as the home aides. Pt CM is Radha Gupta @ [phone]. updated. [facility] updated that the pt was admitted to the ICU with Sepsis and the DC plan is TBD. Palliative: Pam states that she believes the pt is active with Palliative care through [facility]. E-Mail sent to [facility] to verify. HHC/SNF: Hx with [facility]. Pt has been to [facility] and [place]. Pam states that the pt does not like having people come to her home. Pt?s goal: TBD Plan: TBD. Pt is currently disoriented. Anticipate SNF vs return home with potential HH, O2, Palliative, and [facility] services. CM and SW to continue to follow. Sarthak Adhikari RN CM
[2024-02-14] MEDS: Ondansetron 4 MG/2 ML Vial IV (13:17)
[2024-02-14 14:08] LABS: Bedside Glucose 189 mg/dL (74-106)
[2024-02-14 17:24] LABS: Bedside Glucose 171 mg/dL (74-106)
[2024-02-14 23:53] LABS: Bedside Glucose 180 mg/dL (74-106)
[2024-02-15 01:18] VITALS: BP 158/85; PULSE 92
[2024-02-15 03:29] VITALS: BP 102/53; PULSE 94; RESP 16; TEMP 36.8; O2SAT 95
[2024-02-15 03:44] VITALS: BMI 25.1
[2024-02-15] MEDS: Piperacil/Tazobactam 3.375 GM in 0.9% Normal Saline (50mL MB+) 50 ML IV ×3 (06:01→21:45)
[2024-02-15 06:33] LABS: Bedside Glucose 166 mg/dL (74-106)
[2024-02-15 07:51] LABS: Absolute Lymphocyte Count 2.03 X10^3/uL (0.83-4.51); Absolute Neutrophil Count 11.7 X10^3/uL (2.0-7.7); Basophil# 0.02 X10^3/uL; Basophil% 0.1 % (0-1); Eosinophil# 0.07 X10^3/uL; Eosinophils% 0.5 % (0-5); Hematocrit 36.2 % (37-47); Hemoglobin 11.5 g/dL (12.0-15.0); Lymphocyte # 2.03 X10^3/ul (0.83-4.51); Lymphocyte % 13.5 % (19-41); Mean Corp Hgb Conc 31.8 g/dL (32-36); Mean Corpuscular Volume 91.4 fL (81-99); Mean Platelet Vol. 9.7 fl (6.2-12.0); Monocyte# 1.15 X10^3/uL; Monocyte% 7.7 % (0-10); NRBC Flagged by Analyzer 0 % (0-5); Neutrophil # 11.65 X10^3/uL (2.7-7.7); Neutrophil % 77.7 % (47-70); Platelet Count 280 K/mm3 (150-450); RBC Distribution Width CV 13.5 % (11.6-14.6); RBC Distribution Width SD 44.8 fl (35.1-43.9); Red Blood Count 3.96 M/mm3 (4.2-5.4)
[2024-02-15 08:17] LABS: Anion Gap 7 (5-15); BUN 23 mg/dL (7-18); BUN/Creat Ratio 25.9 RATIO (10-20); Calcium,Total 8.8 mg/dL (8.5-10.1); Chloride 111 mmol/L (98-107); Creatinine, Serum 0.89 mg/dL (0.55-1.02); EST Glomerular Filtration Rate 67 mL/min (>60); Est Glom Filt Rate - Afr Amer 81 mL/min (>60); Glucose 181 mg/dL (74-106); Potassium 3.9 mmol/L (3.5-5.1); Sodium Level 142 mmol/L (136-145)
[2024-02-15 09:00] VITALS: BP 172/75; PULSE 94; RESP 18; TEMP 36.8; O2SAT 98
[2024-02-15] MEDS: Nystatin Powder 15gm Bottle 1 APPLIC TOPICAL ×2 (09:16→21:57)
[2024-02-15] MEDS: Enoxaparin 40 MG/0.4 ML Syringe SC (09:17)
[2024-02-15] MEDS: Pantoprazole Sodium 40 MG in 0.9% Normal Saline (100mL MB+) 100 ML 330 MG IV ×2 (10:16→21:43)
--- NOTE | 2024-02-15 10:23 | CASEMGMT ---
DAVIS called patient's daughter Pam. DAVIS introduced self and role at [facility]. DAVIS explained to Pam that patient is likely going to need to go to a jail facility. DAVIS explained patient is still confused and currently unable to get up to work with therapy. The longer she is in bed the weaker she is going to get. Pam verbalized understanding. Pam asked if DAVIS could give her some of the facilities on the list. DAVIS gave her several of the [facility] facilities. Pam and her dad will talk. Pam also asked if DAVIS had Radha Gupta's ([facility] caseworker protective services) phone number. DAVIS provided her with Radha's number ([phone]). DAVIS will follow up once therapy is able to see patient. Corinne RAMON
--- NOTE | 2024-02-15 10:44 | PN_ITS ---
Subjective Subjective Patient seen and examined. She was resting comfortably. She still confused. She knows her name but does not know where she is or what month the distal with the president is. She has been hemodynamically stable though blood pressure is elevated this morning at 172/75. Objective Data Objective Data Vital Signs: Vital Signs Temp Pulse Resp BP Pulse Ox O2 Del Method 98.3 F 94 18 172/75 H 98 Room Air 02/15/24 09:00 02/15/24 09:00 02/15/24 09:00 02/15/24 09:00 02/15/24 09:00 02/15/24 09:00 Oxygen Delivery Method Room Air Weight: 151 lb 0.266 oz Body Mass Index (BMI) 25.1 Intake & Output: Intake and Output for Last 24 Hours 02/13/24 02/14/24 02/15/24 23:59 23:59 23:59 Intake Total 2875 / 2875 794 / 794 100 / 100 Output Total 100 / 300 300 / 300 Balance 2875 / 2875 694 / 494 -200 / -200 Lab / Micro Data 02/15/24 07:12 02/15/24 07:12 Labs: Laboratory Results - last 24 hr 02/14/24 13:49: POC Glucose 189 H 02/14/24 17:07: POC Glucose 171 H 02/14/24 23:14: POC Glucose 180 H 02/15/24 06:00: POC Glucose 166 H 02/15/24 07:12: WBC 15.0 H, RBC 3.96 L, Hgb 11.5 L, Hct 36.2 L, MCV 91.4, MCH 29.0, MCHC 31.8 L, RDW Std Deviation 44.8 H, RDW Coeff of Gerhard 13.5, Plt Count 280, MPV 9.7, Immature Gran % (Auto) 0.500, Neut % (Auto) 77.7 H, Lymph % (Auto) 13.5 L, [place] % (Auto) 7.7, Eos % (Auto) 0.5, Baso % (Auto) 0.1, Absolute Neuts (auto) 11.7 H, Absolute Lymphs (auto) 2.03, Nucleated RBC % 0, Sodium 142, Potassium 3.9, Chloride 111 H, Carbon Dioxide 23.0, Anion Gap 7, BUN 23 H, Creatinine 0.89, Estim Creat Clear Calc 57.20, Est GFR (MDRD) Af Amer 81, Est GFR (MDRD) Non-Af 67, BUN/Creatinine Ratio 25.9 H, Glucose 181 H, Calcium 8.8 Micro: Microbiology 02/13/24 18:46 Urine Catheter - Catheter Urine Culture - Final Enterococcus faecalis 02/14/24 03:44 Nasal Secretion SARS-CoV-2 Antigen (Rapid) - Final 02/14/24 00:04 Mucosa - Nasopharyngeal Respiratory Panel (PCR) - Final Rhythm Strip Rhythm Strip: Sinus Tach Rate: 130 Ectopy: None Physical Exam Const alert, no apparent distress and average body habitus Constitutional Narrative: confused, AxO to self only. General Appearance: cooperative Orientation / Consciousness: confused HEENT normocephalic, head/scalp atraumatic and oropharynx normal; Negative for moist oral mucous membranes Eyes PERRL, EOMs intact bilaterally and conjunctivae normal Neck no lymphadenopathy and supple Neck Narrative: Trachea midline Lymph Lymphatic: no lymphadenopathy noted and no lymphedema noted Resp no retractions, no use of accessory muscles and clear to auscultation bilaterally Resp Narrative: mildly diminished breath sounds bibasally, no wheezes or crackles. On room air. Auscultation: Negative for rales, rhonchi or wheezes Cardio regular rate, regular rhythm, S1 normal heart sound, S2 normal heart sound and no murmurs GI normal to inspection, nondistended, normoactive bowel sounds, soft to palpation, non-tender and non-distended Extremity normal capillary refill, no clubbing, cyanosis or edema and no calf tenderness General Extremity: no tenderness to palpation of joints or extremities Skin General Skin Exam: no breakdown Neuro CN's II-XII intact bilaterally, moves all extremities, no focal motor deficits and no sensory deficits noted Neuro Narrative: confused Motor Exam: general weakness Psych Psych Narrative: confused Assessment & Plan Assessment/Plan (1) Sepsis: (2) Leukocytosis: (3) Toxic metabolic encephalopathy: (4) DURAN (acute kidney injury): PLAN: Plan #Sepsis of unclear etiology * tachycardia and tachpnea have resolved. * on IV zosyn. * remains confused and lethargic * blood cultures pending. * covid, influenza and RSV negative * had been on suppressive antibiotics for UTI * critical care on board. WBC is down to 15. * Urine culture growing gram-positive coccus possibly Enterococcus species. * #Acute encephalopathy * remains confused and lethargic * CT brain showed no acute intracranial pathology * gabapentin and oxybutinin on hold #DURAN: * resolved. Cr is 0.89 today. #Lactic acidosis: Lactic acid is 3.8. #Hypomagnesemia and hypophosphatemia * being aggressively replaced * will trend electrolytes. #Type 2 diabetes mellitus * has acute hyperglycemia * A1C is 5.5. * on ISS. Accuchecks q6hrly as patient is NPO * glipizide on hold * #History of Upper GI bleed * This was due to peptic ulcer disease. Had EGD December 2023 which showed esophageal, duodenal and gastric ulcers. * On Carafate and PPI #History of Takotsubo cardiomyopathy. * Has had flash pulmonary edema in the past. Has known EF of 20% with severe segmental systolic dysfunction from echo in December 2023. * Cardiac cath in September 2023 showed minimal coronary disease in the RCA and LAD and 80% stenosis in the circumflex artery in the mid to distal AV groove branch. Medical management was recommended then. * Oral meds on hold due to encephalopathy #Hypertension:BP meds on hold as she is not taking in orally. resume when she is able to take in orally. #Hyperlipidemia: On a statin. This on hold as patient is confused and encephalopathic #History of adrenal and splenic nodule: Follow-up with PCP on outpatient basis for further workup as needed #Depression and anxiety: * Fluoxetine and BuSpar on hold as she is not able to taking them. * Will resume when she is able to take in orally DVT prophylaxis: Lovenox Disposition: awaiting placement. Charges/Coding Visit Charges Inpatient E&M: 45345 Subs Hosp L2
[2024-02-15 11:55] LABS: Bedside Glucose 152 mg/dL (74-106)
[2024-02-15 15:00] VITALS: BP 162/74; PULSE 87; RESP 18; TEMP 37.1; O2SAT 97
[2024-02-15] MEDS: 0.9% Saline Lock 10 ML Syringe IV (16:34)
[2024-02-15 18:01] LABS: Bedside Glucose 158 mg/dL (74-106)
[2024-02-15 21:00] VITALS: BP 177/81; PULSE 91; RESP 18; TEMP 36.1; O2SAT 94
[2024-02-16] VITALS (9 sets, daily range): BP systolic 137–166; BP diastolic 60–81; PULSE 70–82; RESP 16–18; TEMP 36.2–36.9; O2SAT 93–97; BMI 25.2
[2024-02-16 00:06] LABS: Bedside Glucose 141 mg/dL (74-106)
[2024-02-16] MEDS: 0.9% Saline Lock 10 ML Syringe IV ×2 (04:10→14:37)
[2024-02-16] MEDS: Piperacil/Tazobactam 3.375 GM in 0.9% Normal Saline (50mL MB+) 50 ML IV ×3 (05:27→23:16)
[2024-02-16 05:49] LABS: Bedside Glucose 107 mg/dL (74-106)
[2024-02-16 07:04] LABS: Absolute Lymphocyte Count 2.93 X10^3/uL (0.83-4.51); Absolute Neutrophil Count 7.8 X10^3/uL (2.0-7.7); Basophil# 0.02 X10^3/uL; Basophil% 0.2 % (0-1); Eosinophil# 0.13 X10^3/uL; Eosinophils% 1.1 % (0-5); Hematocrit 33.5 % (37-47); Hemoglobin 10.5 g/dL (12.0-15.0); Lymphocyte # 2.93 X10^3/ul (0.83-4.51); Mean Corp Hgb Conc 31.3 g/dL (32-36); Mean Corpuscular Hgb 29.4 pg (27.0-32.0); Mean Corpuscular Volume 93.8 fL (81-99); Monocyte# 0.78 X10^3/uL; Monocyte% 6.7 % (0-10); NRBC Flagged by Analyzer 0 % (0-5); Neutrophil # 7.79 X10^3/uL (2.7-7.7); Neutrophil % 66.6 % (47-70); Platelet Count 236 K/mm3 (150-450); RBC Distribution Width CV 13.4 % (11.6-14.6); RBC Distribution Width SD 46.5 fl (35.1-43.9); Red Blood Count 3.57 M/mm3 (4.2-5.4); White Blood Count 11.7 K/mm3 (4.4-11.0)
[2024-02-16 07:27] LABS: Anion Gap 5 (5-15); BUN 23 mg/dL (7-18); Calcium,Total 8.9 mg/dL (8.5-10.1); Chloride 111 mmol/L (98-107); Creatinine, Serum 0.82 mg/dL (0.55-1.02); EST Glomerular Filtration Rate 73 mL/min (>60); Est Glom Filt Rate - Afr Amer 88 mL/min (>60); Glucose 131 mg/dL (74-106); Sodium Level 142 mmol/L (136-145)
[2024-02-16] MEDS: Acetaminophen 325 MG Tablet 650 MG PO (07:50)
[2024-02-16] MEDS: Carvedilol 3.125 MG TABLET PO ×2 (07:51→17:19)
[2024-02-16] MEDS: Donepezil HCl 5 MG Tablet PO (07:51)
[2024-02-16] MEDS: Fluoxetine HCl 40 MG CAPSULE PO ×2 (07:51→21:39)
[2024-02-16] MEDS: Enoxaparin 40 MG/0.4 ML Syringe SC (07:51)
[2024-02-16] MEDS: Nystatin Powder 15gm Bottle 1 APPLIC TOPICAL ×2 (07:52→21:38)
[2024-02-16] MEDS: Pantoprazole Sodium 40 MG in 0.9% Normal Saline (100mL MB+) 100 ML 330 MG IV ×2 (10:00→21:39)
--- NOTE | 2024-02-16 10:03 | CASEMGMT ---
Social Work SW reviewed PT, pt did walk 135 feet. Pt is more alert today, not fully alert and oriented but aware she is in the hospital, aware of her home situation. SW spoke w/pt about going somewhere for rehab vs going home. Pt prefers to return home, says her is retired and can help her at home. SW did call daughter Pam, message left. SW will speak w/Pam should she return SW call. HOANG Sorensen
[2024-02-16 12:20] LABS: Bedside Glucose 130 mg/dL (74-106)
--- NOTE | 2024-02-16 14:57 | PN_ITS ---
Subjective Subjective Patient seen and examined. She had no active complaints and felt well. Review systems otherwise negative. She is alert and oriented x 3 today. He remains on room air. Objective Data Objective Data Vital Signs: Vital Signs Temp Pulse Resp BP Pulse Ox O2 Del Method 98.2 F 70 18 148/78 H 96 Room Air 02/16/24 11:40 02/16/24 11:40 02/16/24 11:40 02/16/24 11:40 02/16/24 14:00 02/16/24 14:00 Oxygen Delivery Method Room Air Weight: 151 lb 10.848 oz Body Mass Index (BMI) 25.2 Intake & Output: Intake and Output for Last 24 Hours 02/14/24 02/15/24 02/16/24 23:59 23:59 23:59 Intake Total 794 / 794 490 / 490 210 / 210 Output Total 100 / 300 525 / 525 300 / 300 Balance 694 / 494 -35 / -35 -90 / -90 Lab / Micro Data 02/16/24 05:43 02/16/24 05:43 Labs: Laboratory Results - last 24 hr 02/15/24 17:39: POC Glucose 158 H 02/15/24 23:32: POC Glucose 141 H 02/16/24 05:26: POC Glucose 107 H 02/16/24 05:43: WBC 11.7 H, RBC 3.57 L, Hgb 10.5 L, Hct 33.5 L, MCV 93.8, MCH 29.4, MCHC 31.3 L, RDW Std Deviation 46.5 H, RDW Coeff of Gerhard 13.4, Plt Count 236, MPV 10.0, Immature Gran % (Auto) 0.400, Neut % (Auto) 66.6, Lymph % (Auto) 25.0, [place] % (Auto) 6.7, Eos % (Auto) 1.1, Baso % (Auto) 0.2, Absolute Neuts (auto) 7.8 H, Absolute Lymphs (auto) 2.93, Nucleated RBC % 0, Sodium 142, Potassium 4.0, Chloride 111 H, Carbon Dioxide 25.0, Anion Gap 5, BUN 23 H, Creatinine 0.82, Estim Creat Clear Calc 62.20, Est GFR (MDRD) Af Amer 88, Est GFR (MDRD) Non-Af 73, BUN/Creatinine Ratio 28.0 H, Glucose 131 H, Calcium 8.9 02/16/24 11:29: POC Glucose 130 H Micro: Microbiology 02/13/24 17:31 Blood Culture (Wb) - Left Forearm Blood Culture - Preliminary No growth in 48 hours. 02/13/24 17:29 Blood Culture (Wb) - Right Forearm Blood Culture - Preliminary No growth in 48 hours. 02/13/24 18:46 Urine Catheter - Catheter Urine Culture - Final Enterococcus faecalis 02/14/24 03:44 Nasal Secretion SARS-CoV-2 Antigen (Rapid) - Final 02/14/24 00:04 Mucosa - Nasopharyngeal Respiratory Panel (PCR) - Final Rhythm Strip Rhythm Strip: Sinus Tach Rate: 130 Ectopy: None Physical Exam Const alert, oriented x3, no apparent distress and average body habitus; Negative for healthy appearing General Appearance: cooperative Orientation / Consciousness: confused HEENT normocephalic, head/scalp atraumatic and oropharynx normal; Negative for moist oral mucous membranes Eyes PERRL, EOMs intact bilaterally and conjunctivae normal Neck no lymphadenopathy and supple Lymph Lymphatic: no lymphadenopathy noted and no lymphedema noted Resp normal respiratory effort, normal air movement, no retractions, no use of accessory muscles and clear to auscultation bilaterally Resp Narrative: on room air. Cardio regular rate, regular rhythm, S1 normal heart sound, S2 normal heart sound, no murmurs, no rub, no gallops and no clicks GI normal to inspection, nondistended, normoactive bowel sounds, soft to palpation, non-tender and non-distended Extremity normal capillary refill, no clubbing, cyanosis or edema and no calf tenderness General Extremity: no tenderness to palpation of joints or extremities Skin General Skin Exam: no breakdown Neuro oriented x3, CN's II-XII intact bilaterally, moves all extremities, no focal motor deficits and no sensory deficits noted Neuro Narrative: confused Motor Exam: strength 5/5 throughout and general weakness Psych thought process normal Appearance: appropriate Assessment & Plan Assessment/Plan (1) Sepsis: (2) Leukocytosis: (3) Toxic metabolic encephalopathy: (4) UDRAN (acute kidney injury): PLAN: Plan #Sepsis due to Uti * tachycardia and tachpnea have resolved. * on IV zosyn. * Normal alert and oriented x 3 * blood cultures pending. * covid, influenza and RSV negative * had been on suppressive antibiotics for UTI * critical care on board. WBC is down to 11.7 today * Urine culture growing gram-positive coccus possibly Enterococcus species. * #Acute encephalopathy * Resolved. Alert and oriented x 3 today. * CT brain showed no acute intracranial pathology * gabapentin and oxybutinin on hold #Dysphagia: Patient currently n.p.o. due to concerns for dysphagia. Speech therapy consulted. Await speech therapy recommendations. #DURAN: * resolved. #Lactic acidosis: Lactic acid is 3.8. #Hypomagnesemia and hypophosphatemia * Resolved. #Type 2 diabetes mellitus * A1C is 5.5. * on ISS. Accuchecks q6hrly as patient is NPO * glipizide on hold * #History of Upper GI bleed * This was due to peptic ulcer disease. Had EGD December 2023 which showed esophageal, duodenal and gastric ulcers. * On Carafate and PPI #History of Takotsubo cardiomyopathy. * Has had flash pulmonary edema in the past. Has known EF of 20% with severe segmental systolic dysfunction from echo in December 2023. * Cardiac cath in September 2023 showed minimal coronary disease in the RCA and LAD and 80% stenosis in the circumflex artery in the mid to distal AV groove branch. Medical management was recommended then. * Oral meds on hol; resume when cleared by speech therapy. #Hypertension:BP meds on hold as she is not taking in orally. resume when she is able to take in orally. #Hyperlipidemia: On a statin. This on hold as patient is confused and encephalopathic #History of adrenal and splenic nodule: Follow-up with PCP on outpatient basis for further workup as needed #Depression and anxiety: * Fluoxetine and BuSpar on hold as she is not able to taking them. * Will resume when she is able to take in orally DVT prophylaxis: Lovenox Disposition: awaiting placement. Charges/Coding Visit Charges Inpatient E&M: 60294 Subs Hosp L2
--- NOTE | 2024-02-16 16:21 | CASEMGMT ---
HAMILTON CM into pt room, discussed HHC with Pt. Pt denied wanting any HHC services. Denies further questions at this time.
[2024-02-16] MEDS: Insulin Lispro 100 UNIT/ML INSULN.PEN SC (17:19)
[2024-02-16 17:31] LABS: Bedside Glucose 163 mg/dL (74-106)
[2024-02-16] MEDS: Atorvastatin Calcium 20 MG Tablet PO (21:39)
[2024-02-17 00:45] LABS: Bedside Glucose 139 mg/dL (74-106)
[2024-02-17 03:51] VITALS: BMI 25.0
[2024-02-17 04:30] VITALS: BP 180/83; PULSE 92; RESP 18; TEMP 36.4; O2SAT 96
[2024-02-17] MEDS: Piperacil/Tazobactam 3.375 GM in 0.9% Normal Saline (50mL MB+) 50 ML IV ×2 (04:53→13:05)
[2024-02-17 05:27] LABS: Absolute Lymphocyte Count 3.32 X10^3/uL (0.83-4.51); Absolute Neutrophil Count 6.4 X10^3/uL (2.0-7.7); Basophil# 0.02 X10^3/uL; Basophil% 0.2 % (0-1); Eosinophil# 0.23 X10^3/uL; Eosinophils% 2.2 % (0-5); Hemoglobin 10.3 g/dL (12.0-15.0); Lymphocyte # 3.32 X10^3/ul (0.83-4.51); Lymphocyte % 31.1 % (19-41); Mean Corp Hgb Conc 31.2 g/dL (32-36); Mean Corpuscular Hgb 28.7 pg (27.0-32.0); Mean Corpuscular Volume 91.9 fL (81-99); Mean Platelet Vol. 9.6 fl (6.2-12.0); Monocyte# 0.68 X10^3/uL; Monocyte% 6.4 % (0-10); NRBC Flagged by Analyzer 0 % (0-5); Neutrophil # 6.42 X10^3/uL (2.7-7.7); Neutrophil % 59.9 % (47-70); Platelet Count 226 K/mm3 (150-450); RBC Distribution Width CV 13.2 % (11.6-14.6); RBC Distribution Width SD 44.3 fl (35.1-43.9); Red Blood Count 3.59 M/mm3 (4.2-5.4); White Blood Count 10.7 K/mm3 (4.4-11.0)
[2024-02-17 06:00] LABS: Anion Gap 6 (5-15); BUN 17 mg/dL (7-18); BUN/Creat Ratio 22.4 RATIO (10-20); Calcium,Total 9.2 mg/dL (8.5-10.1); Chloride 110 mmol/L (98-107); Creatinine, Serum 0.76 mg/dL (0.55-1.02); EST Glomerular Filtration Rate 80 mL/min (>60); Est Glom Filt Rate - Afr Amer 97 mL/min (>60); Estimated Creatinine Clearance 58.88 ml/min; Glucose 139 mg/dL (74-106); Potassium 3.3 mmol/L (3.5-5.1); Sodium Level 142 mmol/L (136-145)
[2024-02-17 09:20] VITALS: BP 159/75; PULSE 75; RESP 18; TEMP 36.8; O2SAT 100
[2024-02-17] MEDS: Donepezil HCl 5 MG Tablet PO (09:20)
[2024-02-17] MEDS: Carvedilol 3.125 MG TABLET PO (09:20)
[2024-02-17] MEDS: Pantoprazole Sodium 40 MG in 0.9% Normal Saline (100mL MB+) 100 ML 330 MG IV (09:20)
[2024-02-17] MEDS: Potassium Chloride Oral Tablet 20 MEQ 40 MEQ PO (09:20)
[2024-02-17] MEDS: Enoxaparin 40 MG/0.4 ML Syringe SC (09:20)
[2024-02-17] MEDS: Fluoxetine HCl 40 MG CAPSULE PO (09:21)
[2024-02-17] MEDS: Nystatin Powder 15gm Bottle 1 APPLIC TOPICAL (09:21)
[2024-02-17] MEDS: Acetaminophen 325 MG Tablet 650 MG PO (09:26)
[2024-02-17] MEDS: Insulin Lispro 100 UNIT/ML INSULN.PEN SC (11:19)
[2024-02-17 11:46] LABS: Bedside Glucose 191 mg/dL (74-106)
--- NOTE | 2024-02-17 15:13 | DCINST_ITS ---
Discharge Instructions Diet Discharge Diet: Low fat / Low cholesterol DC O2, CPAP, BIPAP needs Home O2 Discharge instructions: No Dressing / Incision Discharge Activity: Return to Normal Activity Weight Bearing Status: Weight bearing as tolerated Dressing / Incision Call your doctor if you observe: Fever of 101 or Higher, Shortness of breath, Dizziness, Swelling in the ankles and Chest pain Follow Up Care Test Results: Test results from this visit will be discussed in further detail at your follow- up appointment, if applicable. Discharge Plan Admission Admit Date/Time: 02/13/24 21:03 Primary Reason for Your Visit: UTI, sepsis Attending Provider: Jordana Hopkins Primary Care Provider: Rupal Boyer Consulting Providers: Tamiko Quigley Instructions Patient Instructions: ED UTI Fem Ch Discharge Orders/Prescriptions Prescriptions: New nitrofurantoin macrocrystal 100 mg capsule 100 mg PO BID Qty: 10 0RF Rx Instructions: must administer with a meal/food Continued fluoxetine 40 MG capsule 40 mg PO BID buspirone 7.5 MG tablet 22.5 mg PO BID glipizide 5 MG tablet 10 mg PO DAILY ondansetron 4 mg tablet,disintegrating 4 mg PO TID PRN (Reason: nausea and vomiting) Qty: 21 0RF simvastatin 40 mg tablet 40 mg PO QHS oxybutynin chloride 10 mg tablet extended release 24hr 30 mg PO DAILY gabapentin 100 mg capsule 100 mg PO TID turmeric 1,000 mg capsule 1 cap PO DAILY carvedilol 3.125 mg Tablet 3.125 mg PO BID 30 Days Qty: 60 0RF sucralfate [Carafate] 1 gram tablet 1 g PO ACHS Qty: 120 0RF pantoprazole [Protonix] 40 mg tablet,delayed release (DR/EC) 40 mg PO BID 30 Days Qty: 60 1RF donepezil [Aricept] 5 mg tablet 5 mg PO DAILY Eliquis 2.5 mg tablet 2.5 mg PO BID Referrals / Follow Up: Rupal Boyer, [facility] [Primary Care Provider] - Within 1 Week Disposition Disposition (needs filled in before D/C Order can be placed): Home, Self Care
--- NOTE | 2024-02-17 15:14 | DS.PCM_ITS ---
Providers Date of Admission: 02/13/24 Date of Discharge: 02/17/24 Primary Care Physician: ORESTES Cano Consultations 02/13/24 23:33 Consult: Appliance [employer]er / Pulmonary Medicine Routine Consulting Provider: Intensivists/Pulmonary Med Reason for Consult: sepsis EMERGENT Consult: No MD Notified: Yes Date Notified: 02/13/24 Time Notified: 21:04 Method of Notification: Text Reason For Visit: SEPSIS 2/2 UNKNOWN SOURCE Diagnosis Discharge Diagnosis (1) Sepsis: Status: Acute Code(s): A41.9 - Sepsis, unspecified organism (2) Leukocytosis: Status: Acute Code(s): D72.829 - Elevated white blood cell count, unspecified (3) Toxic metabolic encephalopathy: Status: Acute Code(s): G92.8 - Other toxic encephalopathy (4) DURAN (acute kidney injury): Status: Acute Code(s): N17.9 - Acute kidney failure, unspecified Plan #Sepsis due to Uti * tachycardia and tachpnea have resolved. * on IV zosyn. * Normal alert and oriented x 3 * blood cultures pending. * covid, influenza and RSV negative * had been on suppressive antibiotics for UTI * critical care on board. WBC is down to 11.7 today * Urine culture growing gram-positive coccus possibly Enterococcus species. * #Acute encephalopathy * Resolved. Alert and oriented x 3 today. * CT brain showed no acute intracranial pathology * gabapentin and oxybutinin on hold #Dysphagia: Patient currently n.p.o. due to concerns for dysphagia. Speech therapy consulted. Await speech therapy recommendations. #DURAN: * resolved. #Lactic acidosis: Lactic acid is 3.8. #Hypomagnesemia and hypophosphatemia * Resolved. #Type 2 diabetes mellitus * A1C is 5.5. * on ISS. Accuchecks q6hrly as patient is NPO * glipizide on hold * #History of Upper GI bleed * This was due to peptic ulcer disease. Had EGD December 2023 which showed esophageal, duodenal and gastric ulcers. * On Carafate and PPI #History of Takotsubo cardiomyopathy. * Has had flash pulmonary edema in the past. Has known EF of 20% with severe segmental systolic dysfunction from echo in December 2023. * Cardiac cath in September 2023 showed minimal coronary disease in the RCA and LAD and 80% stenosis in the circumflex artery in the mid to distal AV groove branch. Medical management was recommended then. * Oral meds on hol; resume when cleared by speech therapy. #Hypertension:BP meds on hold as she is not taking in orally. resume when she is able to take in orally. #Hyperlipidemia: On a statin. This on hold as patient is confused and encephalopathic #History of adrenal and splenic nodule: Follow-up with PCP on outpatient basis for further workup as needed #Depression and anxiety: * Fluoxetine and BuSpar on hold as she is not able to taking them. * Will resume when she is able to take in orally DVT prophylaxis: Lovenox Disposition: awaiting placement. Medications at Discharge Home Medications buspirone 7.5 mg tablet 22.5 mg PO BID anxiety 01/06/18 fluoxetine 40 mg capsule 40 mg PO BID anxiety 01/06/18 glipizide 5 mg tablet 10 mg PO DAILY antidiabetic 01/06/18 gabapentin 100 mg capsule 100 mg PO TID pain 04/14/23 ondansetron 4 mg disintegrating tablet 4 mg PO TID PRN nausea and vomiting #21 tabs 04/14/23 oxybutynin chloride 10 mg tablet,extended release 24 hr 30 mg PO DAILY bladder 04/14/23 simvastatin 40 mg tablet 40 mg PO QHS cholesterol 04/14/23 turmeric 1 cap PO DAILY supplement 04/14/23 carvedilol 3.125 mg tablet 3.125 mg PO BID bp 30 days #60 tabs 01/05/24 pantoprazole 40 mg tablet,delayed release (Protonix) 40 mg PO BID stomach 30 days #60 tabs 01/05/24 sucralfate 1 gram tablet (Carafate) 1 g PO ACHS stomach #120 tabs 01/05/24 apixaban 2.5 mg tablet (Eliquis) 2.5 mg PO BID blood thinner 02/14/24 donepezil 5 mg tablet (Aricept) 5 mg PO DAILY alzheimers 02/14/24 nitrofurantoin macrocrystal 100 mg capsule 100 mg PO BID #10 caps 02/17/24 Hospital Course Operations None Procedures None Summary of Care Provided Minutes Spent on Discharge: 55 Hospital Course: Patient is a 68 y/o female with a PMH as outlined who was admitted via [facility] ED on 02/13/2024 with a complaint of altered mental status, intermittent vomiting and an unwitnessed fall. She had a history of recurrent UTI and her was concerned that she had a UTI. Labs were significant for anion gap of 17 and bicarb of 19. Cr was elevated at 1.29, and troponin was 17. Blood sugar was 374. URinalysis did not show evidence of UTI. CT of the cervical spine was unremarkable. CXR showed no infiltrates. COVID and respiratory panel was negative. She was hydrated with IVF and admitted and managed for sepsis due to UTI. She was started on IV vancomycin and zosyn. She was admitted to the ICU. Her symptoms improved and she felt much better. She was transferred out of ICU.
--- NOTE | 2024-02-17 15:14 | PCM.DC.SUM ---
Providers Date of Admission: 02/13/24 Date of Discharge: 02/17/24 Primary Care Physician: ORESTES Cano Consultations 02/13/24 23:33 Consult: Managing Director / Pulmonary Medicine Routine Consulting Provider: Intensivists/Pulmonary Med Reason for Consult: sepsis EMERGENT Consult: No MD Notified: Yes Date Notified: 02/13/24 Time Notified: 21:04 Method of Notification: Text Reason For Visit: SEPSIS 2/2 UNKNOWN SOURCE Diagnosis Discharge Diagnosis (1) Sepsis: Status: Acute Code(s): A41.9 - Sepsis, unspecified organism (2) Leukocytosis: Status: Acute Code(s): D72.829 - Elevated white blood cell count, unspecified (3) Toxic metabolic encephalopathy: Status: Acute Code(s): G92.8 - Other toxic encephalopathy (4) DURAN (acute kidney injury): Status: Acute Code(s): N17.9 - Acute kidney failure, unspecified Plan #Sepsis due to Uti tachycardia and tachpnea have resolved. on IV zosyn. Normal alert and oriented x 3 blood cultures pending. covid, influenza and RSV negative had been on suppressive antibiotics for UTI critical care on board. WBC is down to 11.7 today Urine culture growing gram-positive coccus possibly Enterococcus species. #Acute encephalopathy Resolved. Alert and oriented x [address] brain showed no acute intracranial pathology gabapentin and oxybutinin on hold #Dysphagia: Patient currently n.p.o. due to concerns for dysphagia. Speech therapy consulted. Await speech therapy recommendations. #DURAN: resolved. #Lactic acidosis: Lactic acid is 3.8. #Hypomagnesemia and hypophosphatemia Resolved. #Type 2 diabetes mellitus A1C is 5.5. on ISS. Accuchecks q6hrly as patient is NPO glipizide on hold #History of Upper GI bleed This was due to peptic ulcer disease. Had EGD December 2023 which showed esophageal, duodenal and gastric ulcers. On Carafate and PPI #History of Takotsubo cardiomyopathy. Has had flash pulmonary edema in the past. Has known EF of 20% with severe segmental systolic dysfunction from echo in December 2023. Cardiac cath in September 2023 showed minimal coronary disease in the RCA and LAD and 80% stenosis in the circumflex artery in the mid to distal AV groove branch. Medical management was recommended then. Oral meds on hol; resume when cleared by speech therapy. #Hypertension:BP meds on hold as she is not taking in orally. resume when she is able to take in orally. #Hyperlipidemia: On a statin. This on hold as patient is confused and encephalopathic #History of adrenal and splenic nodule: Follow-up with PCP on outpatient basis for further workup as needed #Depression and anxiety: Fluoxetine and BuSpar on hold as she is not able to taking them. Will resume when she is able to take in orally DVT prophylaxis: Lovenox Disposition: awaiting placement. Medications at Discharge Home Medications buspirone 7.5 mg tablet 22.5 mg PO BID anxiety 01/06/18 fluoxetine 40 mg capsule 40 mg PO BID anxiety 01/06/18 glipizide 5 mg tablet 10 mg PO DAILY antidiabetic 01/06/18 gabapentin 100 mg capsule 100 mg PO TID pain 04/14/23 ondansetron 4 mg disintegrating tablet 4 mg PO TID PRN nausea and vomiting #21 tabs 04/14/23 oxybutynin chloride 10 mg tablet,extended release 24 hr 30 mg PO DAILY bladder 04/14/23 simvastatin 40 mg tablet 40 mg PO QHS cholesterol 04/14/23 turmeric 1 cap PO DAILY supplement 04/14/23 carvedilol 3.125 mg tablet 3.125 mg PO BID bp 30 days #60 tabs 01/05/24 pantoprazole 40 mg tablet,delayed release (Protonix) 40 mg PO BID stomach 30 days #60 tabs 01/05/24 sucralfate 1 gram tablet (Carafate) 1 g PO ACHS stomach #120 tabs 01/05/24 apixaban 2.5 mg tablet (Eliquis) 2.5 mg PO BID blood thinner 02/14/24 donepezil 5 mg tablet (Aricept) 5 mg PO DAILY alzheimers 02/14/24 nitrofurantoin macrocrystal 100 mg capsule 100 mg PO BID #10 caps 02/17/24 Hospital Course Operations None Procedures None Summary of Care Provided Minutes Spent on Discharge: 55 Hospital Course: Patient is a 68 y/o female with a PMH as outlined who was admitted via [facility] ED on 02/13/2024 with a complaint of altered mental status, intermittent vomiting and an unwitnessed fall. She had a history of recurrent UTI and her was concerned that she had a UTI. Labs were significant for anion gap of 17 and bicarb of 19. Cr was elevated at 1.29, and troponin was 17. Blood sugar was 374. URinalysis did not show evidence of UTI. CT of the cervical spine was unremarkable. CXR showed no infiltrates. COVID and respiratory panel was negative. She was hydrated with IVF and admitted and managed for sepsis due to UTI. She was started on IV vancomycin and zosyn. She was admitted to the ICU. Her symptoms improved and she felt much better. She was transferred out of ICU. She remained stable. Urine cultures grew Enterococcus species. Vancomycin was discontinued. Speech therapy was consulted and she passed her swallow evaluation. She was placed on a diet which she tolerated. She remained stable and was discharged home on 02/17/2024. She worked with physical therapy and opted to go home. She was discharged home on 02/17/2024 and is to follow up with her PCP within 1-2 weeks. She was discharged on PO nitrofurantoin 100mg bid x 5 days. Patient seen and examined. She had no active complaints and had an uneventful night. Review of systems is otherwise negative. Labs and vitals reviewed. Home meds reviewed and reconciled. Physical Exam Const alert, oriented x3, no apparent distress and average body habitus General Appearance: cooperative and comfortable Orientation / Consciousness: awake and confused Exam Limitations: no limitations HEENT normocephalic, head/scalp atraumatic, hearing grossly normal bilaterally and oropharynx normal; Negative for moist oral mucous membranes Mouth: oral and palatal mucosa normal Eyes PERRL, EOMs intact bilaterally and conjunctivae normal Neck no lymphadenopathy and supple Neck Narrative: Trachea midline Lymph Lymphatic: no lymphadenopathy noted and no lymphedema noted Resp normal respiratory effort, normal air movement, no retractions, no use of accessory muscles and clear to auscultation bilaterally Cardio regular rate, regular rhythm, S1 normal heart sound, S2 normal heart sound, no murmurs, no rub, no gallops and no clicks GI normal to inspection, nondistended, normoactive bowel sounds, soft to palpation, non-tender and non-distended Extremity normal to inspection, full ROM, normal capillary refill, no clubbing, cyanosis or edema and no calf tenderness General Extremity: no tenderness to palpation of joints or extremities Skin General Skin Exam: no breakdown Neuro oriented x3, CN's II-XII intact bilaterally, moves all extremities, no focal motor deficits and no sensory deficits noted Sensorium / Orientation: awake and alert Motor Exam: strength 5/5 throughout and general weakness Psych thought process normal Appearance: appropriate Weight / BMI Weight Weight: 150 lb 5.684 oz Body Mass Index (BMI) 25.0 ABG / Lab / Microbiology Data 02/17/24 04:46 02/17/24 04:46 Laboratory: Laboratory Results - last 24 hr 02/16/24 17:09: POC Glucose 163 H 02/16/24 23:51: POC Glucose 139 H 02/17/24 04:46: WBC 10.7, RBC 3.59 L, Hgb 10.3 L, Hct 33.0 L, MCV 91.9, MCH 28.7, MCHC 31.2 L, RDW Std Deviation 44.3 H, RDW Coeff of Gerhard 13.2, Plt Count 226, MPV 9.6, Immature Gran % (Auto) 0.200, Neut % (Auto) 59.9, Lymph % (Auto) 31.1, [place] % (Auto) 6.4, Eos % (Auto) 2.2, Baso % (Auto) 0.2, Absolute Neuts (auto) 6.4, Absolute Lymphs (auto) 3.32, Nucleated RBC % 0, Sodium 142, Potassium 3.3 L, Chloride 110 H, Carbon Dioxide 26.0, Anion Gap 6, BUN 17, Creatinine 0.76, Estim Creat Clear Calc 58.88, Est GFR (MDRD) Af Amer 97, Est GFR (MDRD) Non-Af 80, BUN/Creatinine Ratio 22.4 H, Glucose 139 H, Calcium 9.2 02/17/24 11:18: POC Glucose 191 H Microbiology: Microbiology 02/13/24 17:31 Blood Culture (Wb) - Left Forearm Blood Culture - Preliminary No growth in 48 hours. 02/13/24 17:29 Blood Culture (Wb) - Right Forearm Blood Culture - Preliminary No growth in 48 hours. 02/13/24 18:46 Urine Catheter - Catheter Urine Culture - Final Enterococcus faecalis 02/14/24 03:44 Nasal Secretion SARS-CoV-2 Antigen (Rapid) - Final 02/14/24 00:04 Mucosa - Nasopharyngeal Respiratory Panel (PCR) - Final D/C Instructions Discharge Diet: Low fat / Low cholesterol Discharge Activity: Return to Normal Activity Weight Bearing Status: Weight bearing as tolerated Call your doctor if you observe: Fever of 101 or Higher, Shortness of breath, Dizziness, Swelling in the ankles and Chest pain DC O2, CPAP, BIPAP Needs Home O2 Discharge instructions: No DC home with Oxygen: No Meaningful Use Info Meaningful Use Meaningful Use Diagnoses (Choose all that apply): None applicable Ischemic Stroke Statin Dosing Therapy Reference: STATIN DOSE THERAPY REFERENCE: * Patients > 75 years receive moderate or high dose statin therapy. * Patients 75 years or YOUNGER should receive HIGH intensity statin dose unless contraindicated. You will be required to document reason for non-treatment if statin daily dose does not meet guidelines. HIGH DOSE STATIN THERAPY DAILY Atorvastatin > than or = to 40 mg Rosuvastatin > than or = to 20 mg Amlodipine + Atorvastatin > than or = to 2.5/40 mg Ezetimibe + Simvastatin 10/80 mg Simvastatin 80mg Discharge Plan Admission Admit Date/Time: 02/13/24 21:03 Primary Reason for Your Visit: UTI, sepsis Attending Provider: Jordana Hopkins Primary Care Provider: Rupal Boyer Consulting Providers: Tamiko Quigley Instructions Patient Instructions: ED UTI Fem Ch Discharge Orders/Prescriptions Prescriptions: New nitrofurantoin macrocrystal 100 mg capsule 100 mg PO BID Qty: 10 0RF Rx Instructions: must administer with a meal/food Continued fluoxetine 40 MG capsule 40 mg PO BID buspirone 7.5 MG tablet 22.5 mg PO BID glipizide 5 MG tablet 10 mg PO DAILY ondansetron 4 mg tablet,disintegrating 4 mg PO TID PRN (Reason: nausea and vomiting) Qty: 21 0RF simvastatin 40 mg tablet 40 mg PO QHS oxybutynin chloride 10 mg tablet extended release 24hr 30 mg PO DAILY gabapentin 100 mg capsule 100 mg PO TID turmeric 1,000 mg capsule 1 cap PO DAILY carvedilol 3.125 mg Tablet 3.125 mg PO BID 30 Days Qty: 60 0RF sucralfate [Carafate] 1 gram tablet 1 g PO ACHS Qty: 120 0RF pantoprazole [Protonix] 40 mg tablet,delayed release (DR/EC) 40 mg PO BID 30 Days Qty: 60 1RF donepezil [Aricept] 5 mg tablet 5 mg PO DAILY Eliquis 2.5 mg tablet 2.5 mg PO BID Referrals / Follow Up: Rupal Boyer, [employer] [Primary Care Provider] - Within 1 Week Disposition Disposition (needs filled in before D/C Order can be placed): Home, Self Care Charges/Coding Visit Charges Inpatient E&M: 03904 Disch Hosp >30min
[2024-02-17 15:20] VITALS: BP 135/75; PULSE 81; RESP 18; TEMP 37; O2SAT 100
[2024-02-17 15:24] LABS: Bedside Glucose 129 mg/dL (74-106)
[2024-02-17 16:54] LABS: Bedside Glucose 134 mg/dL (74-106)
== END 2024-02-17 16:54 | disposition home or self-care (01) | DRG 871 ==
LOC: ED 18:52 → ICU 21:29 → PCU 02-14 17:13
PROVIDERS: Admitting Provider Internal Medicine; Emergency Provider Emergency Medicine; PCP Nurse Practitioner Family; Visit Provider Student in an Organized Health Care Education/Training Program
DX: A41.81 Sepsis due to Enterococcus (principal); G92.8 Other toxic encephalopathy; E87.21 Acute metabolic acidosis; F03.93 Unspecified dementia, unspecified severity, with mood disturbance; N17.9 Acute kidney failure, unspecified; F03.94 Unspecified dementia, unspecified severity, with anxiety; N39.0 Urinary tract infection, site not specified; D73.89 Other diseases of spleen; E83.39 Other disorders of phosphorus metabolism; R13.10 Dysphagia, unspecified; E11.65 Type 2 diabetes mellitus with hyperglycemia; I11.9 Hypertensive heart disease without heart failure; E11.40 Type 2 diabetes mellitus with diabetic neuropathy, unspecified; I48.0 Paroxysmal atrial fibrillation; E78.00 Pure hypercholesterolemia, unspecified; I25.2 Old myocardial infarction; K21.9 Gastro-esophageal reflux disease without esophagitis; G47.33 Obstructive sleep apnea (adult) (pediatric); I25.10 Atherosclerotic heart disease of native coronary artery without angina pectoris; E27.8 Other specified disorders of adrenal gland; E83.42 Hypomagnesemia; W19.XXXA Unspecified fall, initial encounter; Y92.009 Unspecified place in unspecified non-institutional (private) residence as the place of occurrence of the external cause; M81.0 Age-related osteoporosis without current pathological fracture; R32 Unspecified urinary incontinence; Z87.440 Personal history of urinary (tract) infections; Z87.891 Personal history of nicotine dependence; Z79.899 Other long term (current) drug therapy; Z79.82 Long term (current) use of aspirin; Z79.84 Long term (current) use of oral 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 drugs; Z91.81 History of falling; Z87.11 Personal history of peptic ulcer disease; Z87.19 Personal history of other diseases of the digestive system; Z87.898 Personal history of other specified conditions
CPT/HCPCS: 36415; 36600; 70450; 71045; 72125; 74176; 80048; 80053; 81001; 82140; 82803; 82962; 83605; 83735; 84100; 84145; 84443; 84484; 85025; 85610; 85730; 87040; 87077; 87086; 87088; 87186; 87633; 87641; 87811; 92523; 92526; 93005; 97116; 97129; 97162; 97166; 97530; 97535; 99252; 99285; A4216; G0463; J2405; J3486

== ENCOUNTER 2024-04-20 15:05 | Inpatient (IN) | payer MEDICARE, MEDICAID, SELFPAY ==
[2024-04-20] VITALS (29 sets, daily range): BP systolic 99–173; BP diastolic 62–115; PULSE 81–145; RESP 13–32; TEMP 36.4–37.7; O2SAT 88–100; BMI 24.6; BMI 24.0
--- NOTE | 2024-04-20 15:13 | EKG12_ITS ---
Test Reason : ALT LOC Blood Pressure : */* mmHG Vent. Rate : 122 BPM Atrial Rate : 122 BPM P-R Int : 152 ms QRS Dur : 92 ms QT Int : 320 ms P-R-T Axes : 64 14 41 degrees QTcB Int : 456 ms Sinus tachycardia Right atrial enlargement Nonspecific ST abnormality Abnormal ECG Serial comparison not performed, all previous tracings are of poor data quality Confirmed by Fabián Azar ([id number]), digital editor CAIT VIDES ([id number]) on 04/21/2024 10:49:06 AM Referred By: Confirmed By: Fabián Azar
--- NOTE | 2024-04-20 15:14 | CT_ITS ---
PROCEDURE: SPINE CERVICAL WITHOUT CONTRAS REASON FOR EXAM: 68-year-old female, frequent falls. TECHNIQUE: Cervical spine CT without contrast. COMPARISON: CT C-spine 02/13/2024. FINDINGS: Alignment: No traumatic subluxation. Vertebrae: Diffuse osseous demineralization. No acute fracture or aggressive osseous lesion. Mild chronic multilevel vertebral body height loss. Stable disc space narrowing at C5-6. Soft Tissues: No large prevertebral hematoma or subcutaneous hematoma. CT/Spine Cervical without Contras IMPRESSION: NO ACUTE CERVICAL FRACTURE. DEGENERATIVE CHANGES. One or more dose reduction techniques were used (e.g., Automated exposure contr ol, adjustment of the mA and/or kV according to patient size, use of iterative reconstruction technique). Reading Location: [id number]
--- NOTE | 2024-04-20 15:14 | CT_ITS ---
EXAM: BRAIN/HEAD WITHOUT CONTRAST CLINICAL HISTORY: 68-year-old female, confusion. Falls. COMPARISON: CT head 02/13/2024. TECHNIQUE: Routine CT imaging of the head without IV contrast. Additional multiplanar reformats were obtained. Dose reduction techniques were used including intermediate exposure control (AEC),iterative reconstruction technique, and/or mA and/or KV dose adjustments based on patient's size. FINDINGS: Mild generalized cerebral and cerebellar volume loss with concordant prominence of the ventricles and subarachnoid spaces. Moderate patchy supratentorial white matter hypodensities. 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 The land-white matter interfaces are otherwise maintained. No acute intracranial hemorrhage or herniation. The basal cisterns are patent. Calcific plaque of the bilateral intracranial carotid arteries. Prior bilateral ocular lens replacements. The visualized paranasal sinuses and mastoids are unremarkable. No acute calvarial fracture or scalp hematoma. CT/Brain/Head without Contrast IMPRESSION: No acute finding. Stable chronic microvascular ischemic changes and age-relate d changes. Reading Location: [id number]
--- NOTE | 2024-04-20 15:14 | CT_ITS ---
PROCEDURE: CHEST WITHOUT CONTRAST REASON FOR EXAM: 68-year-old female, falls, confusion. TECHNIQUE: Chest CT without contrast. COMPARISON: Chest radiograph 02/13/2024, CT chest, abdomen pelvis 12/30/2023. FINDINGS: Hardware: None. Lymph nodes: No mediastinal, hilar or axillary lymphadenopathy. Heart and Vasculature: Normal heart size. No pericardial effusion. Severe coronary artery, mitral annular and moderate aortic valvular and thoracic aortic calcifications. Lungs and Airways: Visualization is limited by motion artifact. The central airways are grossly patent. Bibasilar atelectasis/scarring. No focal consolidation, pleural effusion or pneumothorax. Upper Abdomen: Calcification of the visualized upper abdominal aorta. Bones: Thoracic spondylosis with unchanged thoracic vertebral body compression deformities. Chronic bilateral rib fracture and humeral head fracture deformities. CT/Chest without Contrast IMPRESSION: 1. Visualization is limited by motion artifact. No large focal consolidation o r pleural effusion. 2. Severe coronary artery calcifications. One or more dose reduction techniques were used (e.g., Automated exposure contr ol, adjustment of the mA and/or kV according to patient size, use of iterative reconstruction technique). Reading Location: [id number]
--- NOTE | 2024-04-20 15:17 | EX.ED.DYSGE1 ---
HPI <DIDIER Ohara - Last Filed: 04/20/24 19:08> History of Present Illness Chief Complaint: Alt LOC Narrative Narrative: 68-year-old female past medical history of HTN, HLD, CKD, DM2, NSTEMI presents with altered mental status. History is gathered from EMS and the chart because they patient is altered. According to EMS her said she has been confused for several days and this happens when she gets UTIs. is not here so further history is limited. Patient's chart shows she is on Eliquis. PFSH <DIDIER Ohara - Last Filed: 04/20/24 19:08> [facility] Medical History Myocardial infarction type 2 Non-[address] (NSTEMI) Hiatal hernia Irritable bowel Back pain due to injury Restless legs Injury of head and neck High cholesterol Hearing loss, right Bipolar disorder Depression Anxiety GERD (gastroesophageal reflux disease) Former smoker Sleep apnea Atrial fibrillation Migraines Dementia Closed intertrochanteric fracture of left hip Psoriatic arthritis Nonobstructive atherosclerosis of coronary artery Obesity Type 2 diabetes mellitus Takotsubo syndrome Hyperlipidemia Essential (primary) hypertension NSTEMI (non-ST elevated myocardial infarction) (01/06/18) Home Medications ?Medication ?Instructions ?Recorded ?Last Taken ?Type buspirone 7.5 mg tablet 22.5 mg PO BID anxiety 01/06/18 Unknown History fluoxetine 40 mg capsule 40 mg PO BID anxiety 01/06/18 Unknown History gabapentin 100 mg capsule 100 mg PO TID pain 04/14/23 01/04/24 History simvastatin 40 mg tablet 40 mg PO QHS cholesterol 04/14/23 Unknown History carvedilol 3.125 mg tablet 3.125 mg PO BID bp 30 days #60 tabs 01/05/24 Unknown Rx pantoprazole 40 mg tablet,delayed 40 mg PO BID stomach 30 days #60 01/05/24 Unknown Rx release (Protonix) tabs apixaban 2.5 mg tablet (Eliquis) 2.5 mg PO BID blood thinner 02/14/24 Unknown History donepezil 5 mg tablet (Aricept) 5 mg PO DAILY alzheimers 02/14/24 Unknown History ergocalciferol (vitamin D2) 1,250 1,250 mcg PO .COMPLEX 04/20/24 Unknown History mcg (50,000 unit) capsule (Vitamin D2) fexofenadine 180 mg tablet 180 mg PO DAILY 04/20/24 Unknown History glipizide 10 mg tablet 10 mg PO DAILY 04/20/24 Unknown History oxybutynin chloride 15 mg 30 mg PO DAILY 04/20/24 Unknown History tablet,extended release 24 hr Allergy/AdvReac Type Severity Reaction Status Date / Time morphine Allergy Mild confusion Verified 04/20/24 15:06 codeine Allergy Itching Verified 04/20/24 15:06 fentanyl AdvReac confusion Verified 04/20/24 15:06 naproxen AdvReac Other Verified 02/13/24 16:26 Family History Mother Cancer skin Father Cancer prostate Surgical History History of back surgery History of carpal tunnel release of both wrists History of hysterectomy History of left heart catheterization (01/07/18) Social History household members: spouse Smoking Status: Former smoker how long ago did patient quit smokin years ago alcohol intake: never substance use type: does not use caffeine: Yes Type: carbonated beverages Number of servings: 1 ROS <DIDIER Ohara - Last Filed: 04/20/24 19:08> ROS ED ROS Narrative Unable to obtain due to altered mental status EXAM <DIDIER Ohara - Last Filed: 04/20/24 19:08> Physical Exam Narrative Exam Narrative: CONST: Patient moving around the bed and agitated. EYES: Normal inspection. PERRL. HEAD: Appears to be healing bruising on right lower face and anterior neck. NECK: Normal inspection. No step offs. RESP: No respiratory distress, CTAB. Large bruise on the middle of her chest. No deformity or crepitus. CVS: Regular rate and rhythm, no murmur, no gallop. ABD: Soft and nontender, no guarding or rebound, nondistended. Back: Normal inspection, no midline tenderness. SKIN: Moist erythematous skin with yellow-whitish discharge consistent with yeast in bilateral inguinal folds. EXTREMITIES: Normal appearance, moving all extremities, 2+ radial and DP pulses. NEURO: Alert and looking around the room, agitated, does not answer questions. PSYCH: Normal affect. Const Vital Signs: 04/20/24 15:06 04/20/24 15:10 04/20/24 15:59 Temperature 99.9 F H 99.9 F H Temperature Source Temporal Oral Pulse Rate 122 H Respiratory Rate 22 H Blood Pressure 169/95 H Blood Pressure Mean 119 Pulse Ox 88 98 98 Oxygen Delivery Method Room Air Room Air Room Air 04/20/24 16:02 04/20/24 16:10 04/20/24 17:00 Temperature 97.6 F L 97.6 F L 98.1 F Temperature Source Axillary Axillary Axillary Pulse Rate 145 H 124 H 116 H Respiratory Rate 18 18 13 Blood Pressure 160/93 H 159/67 H 131/75 H Blood Pressure Mean 115 97 93 Pulse Ox 99 100 100 Oxygen Delivery Method Room Air Room Air Room Air 04/20/24 18:00 Temperature 98.2 F Temperature Source Axillary Pulse Rate 118 H Respiratory Rate 19 H Blood Pressure 125/69 H Blood Pressure Mean 87 Pulse Ox 100 Oxygen Delivery Method Room Air <Dr. Joe Preston MD - Last Filed: 04/20/24 15:39> Physical Exam Const Vital Signs: 04/20/24 15:06 04/20/24 15:10 04/20/24 15:59 Temperature 99.9 F H 99.9 F H Temperature Source Temporal Oral Pulse Rate 122 H Respiratory Rate 22 H Blood Pressure 169/95 H Blood Pressure Mean 119 Pulse Ox 88 98 98 Oxygen Delivery Method Room Air Room Air Room Air 04/20/24 16:02 04/20/24 16:10 04/20/24 17:00 Temperature 97.6 F L 97.6 F L 98.1 F Temperature Source Axillary Axillary Axillary Pulse Rate 145 H 124 H 116 H Respiratory Rate 18 18 13 Blood Pressure 160/93 H 159/67 H 131/75 H Blood Pressure Mean 115 97 93 Pulse Ox 99 100 100 Oxygen Delivery Method Room Air Room Air Room Air 04/20/24 18:00 Temperature 98.2 F Temperature Source Axillary Pulse Rate 118 H Respiratory Rate 19 H Blood Pressure 125/69 H Blood Pressure Mean 87 Pulse Ox 100 Oxygen Delivery Method Room Air MDM <DIDIER Ohara - Last Filed: 04/20/24 19:08> MDM MDM Narrative Medical decision making narrative: History gathered from: Patient's Differential includes but not limited to 68-year-old female presents with altered mental status. According to her it has been x 3 days. Patient is awake but agitated and does not follow commands or answer questions. BP is 169/95, HR in the 120s, initially 88% on room air but then increased to 98% on room air or above. She is in no respiratory distress. She has a low-grade temperature of 99.9 ?F. She has very dry mucous membranes. She has scattered bruising along her neck in the middle of her chest which appears old. She also has a fungal infection in both inguinal regions. Sepsis workup was initiated. She has significantly elevated WBCs at 25.0 and a hemoglobin of 17.1. Prior hemoglobins run around 10-11 so and dehydration is likely causing the significant hemoconcentration. Patient CMP result was significantly delayed despite calling the lab. BUN is 47, creatinine 1.57. Previous was 17/0.76 so this is consistent with DURAN. CO2 is 12.2. Anion gap 29. Sodium and potassium are normal. Lactic acid 3.0. CPK slightly elevated at 762. Urinalysis is positive for UTI. Patient was given 2 L of IV fluids and 2 g of Rocephin for UTI. CT scans of the head neck and chest show no acute traumatic injuries. Pelvis x-rays shows no acute findings. I discussed the case with the hospitalist for admission. I have personally performed a face to face assessment of the patient and have reviewed the AHSAN Note. I performed a substantive portion of the visit including all aspects of the following. My roque findings include: History is 68-year-old female currently with altered mental status unable to give any history. just arrived and told me she has recently had falls. She has hit her head. She is on Eliquis. She is taking very little oral intake. She has had a change in her mental status over the last 3 days. He denies any vomiting or diarrhea. He denies any fever. He said this is not her baseline mental status. She has been like this before when she gets infections also. Exam is [68-year-old female initial temperature is 99.9. Pulse ox is 88% on room air. She is hypoxic. H EENT exam pupils round reactive light. She is moaning but not answering any questions. She has extremely dry mucous membranes. There is no obvious bruising to her face or scalp. No hematoma. Nontender. She has a large bruise on the right side of her neck in the middle of her chest. They seem older. No C-spine or tracheal tenderness. Lungs clear to auscultation. Heart tachycardic around 105. She has a bruise on her sternum but again there is no bony crepitance of her chest wall. No subcu air. Abdomen soft and nontender. Nondistended. No peritoneal signs. Pelvic girdle is intact. She is moving all 4 extremities. Nontender no deformity. No edema. Neurologically her eyes are open. She is awake. She does not follow commands or answer questions currently.] Medical Decision Making [68-year-old female recent falls on Eliquis this could all be from head injury, intracranial bleeding may be from an infection. Clinically she looks dehydrated. She undergo a septic workup with CAT scans of her head neck and chest. IV fluids. She will be admitted were awaiting test results. Have already spoken to her .] Other additions or changes: [None] Lab Data Labs: Laboratory Results - last 24 hr 04/20/24 04/20/24 04/20/24 15:30 15:33 15:44 WBC 25.0 H RBC 5.89 H Hgb 17.1 H Hct 51.0 H MCV 86.6 MCH 29.0 MCHC 33.5 RDW Std Deviation 40.4 RDW Coeff of Gerhard 13.0 Plt Count 359 MPV 9.6 Immature Gran % (Auto) 0.800 Neut % (Auto) 86.6 H Lymph % (Auto) 6.9 L [place] % (Auto) 5.6 Eos % (Auto) 0.0 Baso % (Auto) 0.1 Absolute Neuts (auto) 21.6 H Absolute Lymphs (auto) 1.72 Nucleated RBC % 0 Differential Comment SCANNED PT 15.1 H INR 1.2 APTT 25.1 Sodium 144 Potassium 4.0 Chloride 103 Carbon Dioxide 12.2 L Anion Gap 29 H BUN 47 H Creatinine 1.57 H Estim Creat Clear Calc 30.00 L Est GFR (MDRD) Non-Af 35 L BUN/Creatinine Ratio 29.9 H Glucose 231 H Lactic Acid 3.0 H* Calcium 10.7 Total Bilirubin 1.15 AST 70 H ALT 25 Alkaline Phosphatase 114 H Total Creatine Kinase 762 H Total Protein 8.1 Albumin 4.5 Globulin 3.6 Albumin/Globulin Ratio 1.2 Urine Color Yellow Urine Clarity Sl. Cloudy Urine pH 5.0 Ur Specific Marion 1.020 Urine Protein 500 H Urine Glucose (UA) Normal Urine Ketones 50 H Urine Occult Blood 250 H Urine Nitrite Negative Urine Bilirubin 1 H Urine Urobilinogen Normal Ur Leukocyte Esterase 100 H Urine RBC 0-5 SEEN Urine WBC 10-25 SEEN Ur Squamous Epith Cells 0-5 SEEN Urine Bacteria 2+ Urine Mucus 1+ POC Glucose 194 H Radiography Diagnostic Testing: Clinical Impression(s) from Imaging Studies Brain CT 04/20/24 15:14 IMPRESSION: No acute finding. Stable chronic microvascular ischemic changes and age-related changes. Reading Location: [facility] Cervical Spine CT 04/20/24 15:14 IMPRESSION: NO ACUTE CERVICAL FRACTURE. DEGENERATIVE CHANGES. One or more dose reduction techniques were used (e.g., Automated exposure control, adjustment of the mA and/or kV according to patient size, use of iterative reconstruction technique). Reading Location: [facility] Chest CT 04/20/24 15:14 IMPRESSION: 1. Visualization is limited by motion artifact. No large focal consolidation or pleural effusion. 2. Severe coronary artery calcifications. One or more dose reduction techniques were used (e.g., Automated exposure control, adjustment of the mA and/or kV according to patient size, use of iterative reconstruction technique). Reading Location: [facility] Pelvis X-Ray 04/20/24 15:22 IMPRESSION: Chronic appearing bilateral trochanteric fractures, please correlate. Chronic bilateral pubic rami fractures, worse on the right. No definite acute displaced fracture or dislocation. Right femoral nail and left total hip prosthesis. Chronic compression fractures of the lower lumbar spine. Reading Location: [facility] ED attending interpretation 1 view pelvis shows bilateral hip hardware, no acute fracture. <Dr. Joe Preston MD - Last Filed: 04/20/24 15:39> [facility] MDM Narrative Medical decision making narrative: I have personally performed a face to face assessment of the patient and have reviewed the AHSAN Note. I performed a substantive portion of the visit including all aspects of the following. My roque findings include: History is 68-year-old female currently with altered mental status unable to give any history. just arrived and told me she has recently had falls. She has hit her head. She is on Eliquis. She is taking very little oral intake. She has had a change in her mental status over the last 3 days. He denies any vomiting or diarrhea. He denies any fever. He said this is not her baseline mental status. She has been like this before when she gets infections also. Exam is [68-year-old female initial temperature is 99.9. Pulse ox is 88% on room air. She is hypoxic. H EENT exam pupils round reactive light. She is moaning but not answering any questions. She has extremely dry mucous membranes. There is no obvious bruising to her face or scalp. No hematoma. Nontender. She has a large bruise on the right side of her neck in the middle of her chest. They seem older. No C-spine or tracheal tenderness. Lungs clear to auscultation. Heart tachycardic around 105. She has a bruise on her sternum but again there is no bony crepitance of her chest wall. No subcu air. Abdomen soft and nontender. Nondistended. No peritoneal signs. Pelvic girdle is intact. She is moving all 4 extremities. Nontender no deformity. No edema. Neurologically her eyes are open. She is awake. She does not follow commands or answer questions currently.] Medical Decision Making [68-year-old female recent falls on Eliquis this could all be from head injury, intracranial bleeding may be from an infection. Clinically she looks dehydrated. She undergo a septic workup with CAT scans of her head neck and chest. IV fluids. She will be admitted were awaiting test results. Have already spoken to her .] Other additions or changes: [None] History & Record Review Discussion w/independent historian: Patient and Family Additional record(s) reviewed:: Prior inpatient record, Prior outpatient record, Prior ED visit and Prior labs Lab Data Attestation: I reviewed the patient's lab results. Labs: Laboratory Results - last 24 hr 04/20/24 04/20/24 04/20/24 15:30 15:33 15:44 WBC 25.0 H RBC 5.89 H Hgb 17.1 H Hct 51.0 H MCV 86.6 MCH 29.0 MCHC 33.5 RDW Std Deviation 40.4 RDW Coeff of Gerhard 13.0 Plt Count 359 MPV 9.6 Immature Gran % (Auto) 0.800 Neut % (Auto) 86.6 H Lymph % (Auto) 6.9 L [place] % (Auto) 5.6 Eos % (Auto) 0.0 Baso % (Auto) 0.1 Absolute Neuts (auto) 21.6 H Absolute Lymphs (auto) 1.72 Nucleated RBC % 0 Differential Comment SCANNED PT 15.1 H INR 1.2 APTT 25.1 Sodium 144 Potassium 4.0 Chloride 103 Carbon Dioxide 12.2 L Anion Gap 29 H BUN 47 H Creatinine 1.57 H Estim Creat Clear Calc 30.00 L Est GFR (MDRD) Non-Af 35 L BUN/Creatinine Ratio 29.9 H Glucose 231 H Lactic Acid 3.0 H* Calcium 10.7 Total Bilirubin 1.15 AST 70 H ALT 25 Alkaline Phosphatase 114 H Total Creatine Kinase 762 H Total Protein 8.1 Albumin 4.5 Globulin 3.6 Albumin/Globulin Ratio 1.2 Urine Color Yellow Urine Clarity Sl. Cloudy Urine pH 5.0 Ur Specific [place] 1.020 Urine Protein 500 H Urine Glucose (UA) Normal Urine Ketones 50 H Urine Occult Blood 250 H Urine Nitrite Negative Urine Bilirubin 1 H Urine Urobilinogen Normal Ur Leukocyte Esterase 100 H Urine RBC 0-5 SEEN Urine WBC 10-25 SEEN Ur Squamous Epith Cells 0-5 SEEN Urine Bacteria 2+ Urine Mucus 1+ POC Glucose 194 H Radiography Diagnostic Testing: Clinical Impression(s) from Imaging Studies Brain CT 04/20/24 15:14 IMPRESSION: No acute finding. Stable chronic microvascular ischemic changes and age-related changes. Reading Location: [facility] Cervical Spine CT 04/20/24 15:14 IMPRESSION: NO ACUTE CERVICAL FRACTURE. DEGENERATIVE CHANGES. One or more dose reduction techniques were used (e.g., Automated exposure control, adjustment of the mA and/or kV according to patient size, use of iterative reconstruction technique). Reading Location: [facility] Chest CT 04/20/24 15:14 IMPRESSION: 1. Visualization is limited by motion artifact. No large focal consolidation or pleural effusion. 2. Severe coronary artery calcifications. One or more dose reduction techniques were used (e.g., Automated exposure control, adjustment of the mA and/or kV according to patient size, use of iterative reconstruction technique). Reading Location: [facility] Pelvis X-Ray 04/20/24 15:22 IMPRESSION: Chronic appearing bilateral trochanteric fractures, please correlate. Chronic bilateral pubic rami fractures, worse on the right. No definite acute displaced fracture or dislocation. Right femoral nail and left total hip prosthesis. Chronic compression fractures of the lower lumbar spine. [facility] <Dr. Joe Preston MD - Last Filed: 04/20/24 15:39> Critical Care Time Critical Care Time: Yes Critical care time (excluding procedures): 30-74 minutes, Including time spent:, Discussing w/Patient &/or Family/Vehicle Refinisher, Discussing w/Consultants, Arranging Admission or Transfer, Performing Direct Patient Care at Bedside and - (35 minutes.) Discharge Plan Dx/Rx/DC Orders Clinical Impression: Altered level of consciousness, Acute dehydration, Acute delirium, History of diabetes mellitus, Chronic anticoagulation, Recurrent falls, Acute UTI, Candidal intertrigo, High anion gap metabolic acidosis, Acute kidney injury Disposition Disposition: Acute Care [facility]
--- NOTE | 2024-04-20 15:22 | RAD_ITS ---
PROCEDURE: Pelvis radiograph REASON FOR EXAM: Pain, trauma TECHNIQUE: Frontal view of the pelvis COMPARISON: None FINDINGS: See impression RAD/Pelvis 1 or 2 Views IMPRESSION: Chronic appearing bilateral trochanteric fractures, please correlate. Chronic bilateral pubic rami fractures, worse on the right. No definite acute displaced fracture or dislocation. Right femoral kendra l and left total hip prosthesis. Chronic compression fractures of the lower lumbar spine. Reading Location: [facility]
[2024-04-20] MEDS: LORazepam 2 MG/ML Syringe 1 MG IV (15:45)
[2024-04-20] MEDS: Acetaminophen 650 MG Suppository RC (15:50)
[2024-04-20] MEDS: 0.9% Normal Saline (1000mL) 1,000 ML 999 ML IV ×2 (15:50→17:00)
[2024-04-20 16:02] LABS: Absolute Lymphocyte Count 1.72 X10^3/uL (0.83-4.51); Absolute Neutrophil Count 21.6 X10^3/uL (2.0-7.7); Basophil# 0.03 X10^3/uL; Basophil% 0.1 % (0-1); Hemoglobin 17.1 g/dL (12.0-15.0); Lymphocyte # 1.72 X10^3/ul (0.83-4.51); Lymphocyte % 6.9 % (19-41); Mean Corp Hgb Conc 33.5 g/dL (32-36); Mean Corpuscular Volume 86.6 fL (81-99); Mean Platelet Vol. 9.6 fl (6.2-12.0); Monocyte# 1.41 X10^3/uL; Monocyte% 5.6 % (0-10); NRBC Flagged by Analyzer 0 % (0-5); Neutrophil # 21.64 X10^3/uL (2.7-7.7); Neutrophil % 86.6 % (47-70); POSITIVE DIFFERENTIAL YES; Platelet Count 359 K/mm3 (150-450); RBC Distribution Width SD 40.4 fl (35.1-43.9); Red Blood Count 5.89 M/mm3 (4.2-5.4)
--- NOTE | 2024-04-20 16:03 | ED.RN ---
1510: PT. ARRIVAL VIA EMS. RESTLESS AND TURNING SIDE TO SIDE IN BED. THROWING LIMBS OVER SIDE RAILS. NOT FOLLOWING COMMANDS. RESPONDING TO NAME WITH GRUNTING. PA AT BEDSIDE TO ASSESS PT.
[2024-04-20 16:07] LABS: Differential Indicated SCAN CRITERIA MET
--- NOTE | 2024-04-20 16:12 | ED.RN ---
LAB CALLED TO SEND SOMEONE TO DRAW SECOND SET OF BLOOD CULTURES D/T MULTIPLE STICKS BY ER STAFF W/ NO SUCCESS.
--- NOTE | 2024-04-20 16:14 | ED.RN ---
PER DOCTOR CARLEEN'S REQUEST TO DISCUSS CODE STATUS. ATTEMPTED TO CALL W/ INCORRECT NUMBER ON FILE, UNABLE SUCCESSFULLY GET THROUGH TO NUMBER LISTED. ATTEMPTED TO CALL DAUGHTER ON FILE W/ NO ANSWER. UNABLE TO DISCUSS PT. STATUS AT THIS TIME W/ FAMILY.
[2024-04-20 16:23] LABS: Color, Urine Yellow (Yellow); Glucose, Dipstick Normal (Normal); Ketone-Dipstick 50 mg/dl (Negative); Leukocyte Esterase-Dipstick 100 /ul (Negative); Nitrite-Dipstick Negative (Negative); Occult Blood-Urine 250 /ul (Negative); Protein-Dipstick 500 mg/dl (Negative); Urine Clarity Sl. Cloudy (Clear); Urine Urobilinogen Normal (Normal)
--- NOTE | 2024-04-20 16:32 | ED.RN ---
DAUGHTER CALLED ASKING FOR PT. UPDATE. SHE GAVE ME THE NUMBER FOR HUSBANDS PRIMARY PHONE NUMBER. I RECOMMENDED TO DAUGHTER THAT SHE SHOULD CONTACT PT. PATRICIA Zavala/Rob EDEN.
[2024-04-20 16:35] LABS: Urine Bilirubin Dipstick 1 mg/dL (Negative)
[2024-04-20 16:39] LABS: International Normalized Ratio 1.2; Partial Thromboplast Time 25.1 Seconds (24.1-36.2); Prothrombin Time (Protime)PT. 15.1 SECONDS (11.7-14.9)
[2024-04-20 16:43] LABS: Differential Comment SCANNED
[2024-04-20 16:50] LABS: Bacteria 2+ /hpf (None Seen); Mucous, Urine 1+ /hpf (<or=2+); Red Blood Cells-Urine 0-5 SEEN /hpf (0-5); Squamous Epithelial Cells - UA 0-5 SEEN /hpf (5-10); White Blood Cells 10-25 SEEN /hpf (0-5)
[2024-04-20 17:07] LABS: Bedside Glucose 194 mg/dL (74-106)
[2024-04-20] MEDS: Ceftriaxone 2 GM in 0.9% Normal Saline (50mL MB+) 50 ML IV (17:22)
--- NOTE | 2024-04-20 18:14 | ED.RN ---
LAB CALLED FOR PROLONGED READ TIME ON CHEMISTRY. RESPONSE HE IS WORKING ON IT
[2024-04-20 18:50] LABS: CPK Total, Creatine Kinase 762 U/L (24-195)
[2024-04-20 18:51] LABS: ALB/GLOB Ratio 1.2 RATIO (0.9-2.4); AST(SGOT) 70 U/L (<=31); Alanine Aminotransfer ALT/SGPT 25 U/L (<=34); Albumin, Serum 4.5 g/dL (3.4-4.8); Alkaline Phosphatase 114 U/L (35-104); Anion Gap 29 (5-15); BUN 47 mg/dL (4-19); BUN/Creat Ratio 29.9 RATIO (10-20); Calcium,Total 10.7 mg/dL (7.6-11.0); Carbon Dioxide 12.2 mmol/L (21.0-32.0); Chloride 103 mmol/L (98-108); Creatinine, Serum 1.57 mg/dL (0.70-1.20); EST Glomerular Filtration Rate 35 (>60); Globulin 3.6 g/dL (2.2-4.2); Glucose 231 mg/dL (70-99); Protein, Total 8.1 g/dL (5.9-8.4); Sodium Level 144 mmol/L (133-145); Total Bilirubin 1.15 mg/dL (0.00-1.30)
--- NOTE | 2024-04-20 19:18 | HP.PCM.HOS_ITS ---
HPI - General General Date of Admission: 04/20/24 Date of Service: 04/20/24 Chief Complaint: Encephalopathy. HPI Narrative The patient is a 68 y/o F w/ PMHx: HTN, HLD, Anxiety and Depression/Bipolar disorder, GERD, Former tobacco use, BURKE, Chronic migraines, PAF, Psoriatic arthritis, Dementia unclear type as well as unclear extent with unclear behavioral disturbance history, Nonobstructive CAD w/ Takotsubo syndrome with reduced EF of 20% 09/2023, Diabetes mellitus type II who presents to the [facility] ED on 04/20/24 with history of persistent confusion over the last several days with concern for recurrent urinary tract infection as patient presents similarly when she has UTI. also reports recent falls on Eliquis with minimal intake with no nausea or emesis nor any diarrhea nor fevers at home. Workup in the ED included T99 temporally, heart 122, BP 169/95, respiratory rate 22, 88% room air with most recent repeat vitals T98.2 Axillary, heart rate 118, BP 125/69, respiratory rate 19, 100% room air, per ED physician note specifically however there is a pulse oximeter translate there was noted to be 88% while she was in the ED, CBC with WBC 25, hemoglobin 17.1, platelets 359 with left shift, unremarkable coags, CMP with come back side 12.2, anion gap 29, BUN/creatinine 47/1.57, glucose 231, lactic acid 3.0, hepatic profile with AST 70, alk phos 02/17/2013 otherwise not marked appearing, total creatinine kinase mildly elevated 762, urinalysis with elevated specific gravity 1.020, protein 500, ketone 50, occult blood 250, nitrite negative, leukocyte esterase 100 however with urine WBCs 10-25 with 2+ urine bacteria, urine culture pending per ED, blood culture x 2 pending per ED, rapid SARS COVID/influenza/RSV negative, CT of the brain with no acute intracranial finding with stable chronic microvascular ischemic changes and age-related changes, CT cervical spine with no acute cervical fracture with chronic degenerative changes, CT chest with severe coronary artery calcifications with no acute cardiopulmonary findings otherwise, plain film of the pelvis with chronic appearing bilateral trochanteric fractures, chronic bilateral pubic rami fractures worse on the right, no definitive acute displaced fracture or dislocation, right femoral nail and left total hip prosthesis, chronic compression fractures of the lower lumbar spine, EKG ST with artifact with no acute evidence of ischemia. In the ED patient ministered 30 cc/kg IV fluid bolus (2L NS), Ativan 1 mg IV x 1, Rocephin 2 g IV x 1, acetaminophen 650 mg rectal x 1. [facility] Medical History Myocardial infarction type 2 Non-ST elevation [place] (NSTEMI) Hiatal hernia Irritable bowel Back pain due to injury Restless legs Injury of head and neck High cholesterol Hearing loss, right Bipolar disorder Depression Anxiety GERD (gastroesophageal reflux disease) Former smoker Sleep apnea Atrial fibrillation Migraines Dementia Closed intertrochanteric fracture of left hip Psoriatic arthritis Nonobstructive atherosclerosis of coronary artery Obesity Type 2 diabetes mellitus Takotsubo syndrome Hyperlipidemia Essential (primary) hypertension NSTEMI (non-ST elevated myocardial infarction) (01/06/18) Home Medications ?Medication ?Instructions ?Recorded ?Last Taken ?Type buspirone 7.5 mg tablet 22.5 mg PO BID anxiety 01/06 Unknown History fluoxetine 40 mg capsule 40 mg PO BID anxiety 8 Unknown History gabapentin 100 mg capsule 100 mg PO TID pain 04/14/23 01/04/24 History simvastatin 40 mg tablet 40 mg PO QHS cholesterol 04/07 Unknown History carvedilol 3.125 mg tablet 3.125 mg PO BID bp 30 days #60 tabs 01/05/24 Unknown Rx pantoprazole 40 mg tablet,delayed 40 mg PO BID stomach 30 days #60 01/05/24 Unknown Rx release (Protonix) tabs apixaban 2.5 mg tablet (Eliquis) 2.5 mg PO BID blood t hinner 02/14/24 Unknown History donepezil 5 mg tablet (Aricept) 5 mg PO DAILY alzheime rs 02/14/24 Unknown History ergocalciferol (vitamin D2) 1,250 1,250 mcg PO .COMPLE X 04/20/24 Unknown History mcg (50,000 unit) capsule (Vitamin D2) fexofenadine 180 mg tablet 180 mg PO DAILY 04/20/24 Un known History glipizide 10 mg tablet 10 mg PO DAILY 04/20/24 Unkn own History oxybutynin chloride 15 mg 30 mg PO DAILY 04/20/24 Unkn own History tablet,extended release 24 hr Allergy/AdvReac Type Severity Reaction Status Date / Time morphine Allergy Mild confusion Verified 04/20/24 15:06 codeine Allergy Itching Verified 04/20/24 15:06 fentanyl AdvReac confusion Verified 04/20/24 15:06 naproxen AdvReac Other Verified 02/13/24 16:26 Family History Mother Cancer skin Father Cancer prostate Surgical History History of back surgery History of carpal tunnel release of both wrists History of hysterectomy History of left heart catheterization (01/07/18) Social History household members: spouse Smoking Status: Former smoker how long ago did patient quit smokin years ago alcohol intake: never substance use type: does not use caffeine: Yes Type: carbonated beverages Number of servings: 1 ROS Review of Systems ROS Unobtainable: due to encephalopathy Vital Signs Vital Signs Vital Signs: 04/20/24 15:06 04/20/24 15:10 04/20/24 15:59 Temperature 99.9 F H 99.9 F H Temperature Source Temporal Oral Pulse Rate 122 H Respiratory Rate 22 H Blood Pressure 169/95 H Blood Pressure Mean 119 Pulse Ox 88 98 98 Oxygen Delivery Method Room Air Room Air Room Air 04/20/24 16:02 04/20/24 16:10 04/20/24 17:00 Temperature 97.6 F L 97.6 F L 98.1 F Temperature Source Axillary Axillary Axillary Pulse Rate 145 H 124 H 116 H Respiratory Rate 18 18 13 Blood Pressure 160/93 H 159/67 H 131/75 H Blood Pressure Mean 115 97 93 Pulse Ox 99 100 100 Oxygen Delivery Method Room Air Room Air Room Air 04/20/24 18:00 Temperature 98.2 F Temperature Source Axillary Pulse Rate 118 H Respiratory Rate 19 H Blood Pressure 125/69 H Blood Pressure Mean 87 Pulse Ox 100 Oxygen Delivery Method Room Air Weight Weight: 147 lb 14.883 oz Body Mass Index (BMI) 24.6 Physical Exam Narrative Physical Examination: General: Awakens but lethargic, not oriented, ill-appearing, laying in ED bed, some spontaneous movement and rolling in the bed. Skin: Normal color, normal turgor, no icterus, no cyanosis except numerous various stage ecchymoses including the face, occasional abrasions, bilateral lower extremity venous stasis skin changes HEENT: AT/NC, EOMI, PERRLA, dry MM, no carotid bruits, no marked JVD noted. Lungs: Significantly diminished, greater bases, mildly increased respiratory rate but no distress, no appreciated rales, rhonchi or wheezing. Heart: Tachycardic with regular rhythm; no gallop, rub audible. Abdomen: Soft, mild generalized discomfort to palpation, ND, distant hyperactive BS, no appreciated HSM. Extremities: No cyanosis, no clubbing, no marked peripheral edema, see skin. Neurological: Awakens but lethargic, not oriented, ill-appearing, laying in ED bed, some spontaneous movement and rolling in the bed, cognitive function not baseline intact, PERRLA, cranial nerves difficult to assess given encephalopathic presentation currently, spontaneously moving extremities, strength severely globally decreased. Psychiatric: Affect appears flat, lethargic, no acute evidence of depressive or anxiety feelings but does have underlying history. Results Lab / Micro Data 04/20/24 15:44 04/20/24 15:44 Labs: Laboratory Results - last 24 hr 04/20/24 15:30: Urine Color Yellow, Urine Clarity Sl. Cloudy, Urine pH 5.0, Ur Specific [place] 1.020, Urine Protein 500 H, Urine Glucose (UA) Normal, Urine Ketones 50 H, Urine Occult Blood 250 H, Urine Nitrite Negative, Urine Bilirubin 1 H, Urine Urobilinogen Normal, Ur Leukocyte Esterase 100 H, Urine RBC 0-5 SEEN, Urine WBC 10-25 SEEN, Ur Squamous Epith Cells 0-5 SEEN, Urine Bacteria 2+, Urine Mucus 1+ 04/20/24 15:33: POC Glucose 194 H 04/20/24 15:44: WBC 25.0 H, RBC 5.89 H, Hgb 17.1 H, Hct 51.0 H, MCV 86.6, MCH 29.0, MCHC 33.5, RDW Std Deviation 40.4, RDW Coeff of Gerhard 13.0, Plt Count 359, MPV 9.6, Immature Gran % (Auto) 0.800, Neut % (Auto) 86.6 H, Lymph % (Auto) 6.9 L, [place] % (Auto) 5.6, Eos % (Auto) 0.0, Baso % (Auto) 0.1, Absolute Neuts (auto) 21.6 H, Absolute Lymphs (auto) 1.72, Nucleated RBC % 0, Differential Comment SCANNED, PT 15.1 H, INR 1.2, APTT 25.1, Sodium 144, Potassium 4.0, Chloride 103, Carbon Dioxide 12.2 L, Anion Gap 29 H, BUN 47 H, Creatinine 1.57 H, Estim Creat Clear Calc 30.00 L, Est GFR (MDRD) Non-Af 35 L, BUN/Creatinine Ratio 29.9 H, G lucose 231 H, Lactic Acid 3.0 H*, Calcium 10.7, Total Bilirubin 1.15, AST 70 H, ALT 25, Alkaline Phosphatase 114 H, Total Creatine Kinase 762 H, Total Protein 8.1, Albumin 4.5, Globulin 3.6, Albumin/Globulin Ratio 1.2 Micro: Microbiology 04/20/24 15:30 Mucosa - Nose SARS-CoV-2, Influenza & RSV (PCR) - Final Imaging Radiology Impression Brain CT 04/20/24 15:14 IMPRESSION: No acute finding. Stable chronic microvascular ischemic changes and age-related changes. Reading Location: [facility] Cervical Spine CT 04/20/24 15:14 IMPRESSION: NO ACUTE CERVICAL FRACTURE. DEGENERATIVE CHANGES. One or more dose reduction techniques were used (e.g., Automated exposure control, adjustment of the mA and/or kV according to patient size, use of iterative reconstruction technique). Reading Location: [facility] Chest CT 04/20/24 15:14 IMPRESSION: 1. Visualization is limited by motion artifact. No large focal consolidation or pleural effusion. 2. Severe coronary artery calcifications. One or more dose reduction techniques were used (e.g., Automated exposure control, adjustment of the mA and/or kV according to patient size, use of iterative reconstruction technique). Reading Location: [facility] Pelvis X-Ray 04/20/24 15:22 IMPRESSION: Chronic appearing bilateral trochanteric fractures, please correlate. Chronic bilateral pubic rami fractures, worse on the right. No definite acute displaced fracture or dislocation. Right femoral nail and left total hip prosthesis. Chronic compression fractures of the lower lumbar spine. Reading Location: [facility] Assessment & Plan Assessment/Plan (1) Sepsis: (2) Acute UTI: PLAN: Plan The patient is a 68 y/o F w/ PMHx: HTN, HLD, Anxiety and Depression/Bipolar disorder, GERD, Former tobacco use, BURKE, Chronic migraines, PAF, Psoriatic arthritis, Dementia unclear type as well as unclear extent with unclear behavioral disturbance history, Nonobstructive CAD w/ Takotsubo syndrome with reduced EF of 20% 09/2023, Diabetes mellitus type II who presents to the [facility] ED on 04/20/24 with history of persistent confusion over the last several days with concern for recurrent urinary tract infection as patient presents similarly when she has UTI. #1. 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 Bld cx x 2 obtained in the ED. PT/OT/case management consulted for discharge planning. #2. High anion gap metabolic acidosis, unclear specific etiology: Patient presentation with infectious etiology with lactic acidosis but also elevated anion gap with hyperglycemia and noted ketones in the urine thus certainly some risk that this could be a component of DKA, will obtain acetone and if clinically appropriate initiate DKA order set and protocol. Acetone has been requested and is pending upon evaluation of patient. In the interim until assure no DKA will maintain on every 6 hours Accu-Cheks with insulin sliding scale and hold oral regimen, n.p.o. status. #3. Acute kidney injury on CKD stage II versus stage III per previous GFR trend, has vacillated but more recently appears Stage II: Secondary to acute presentation #1, #2. Admission BUN/Cr 47/1.57, GFR 35, prior baseline creatinine noted to be primarily 0.7-0.8 although has vastly. Will hydrate, hold nephrotoxic medications and repeat chemistry in AM. #4. Acute rhabdomyolysis: Total creatinine kinase mildly elevated 762, will continue aggressive hydration, monitor renal function, liver function, monitor I's and O's, trend total creatinine kinase. #5. Known right renal artery obstruction: Temporarily place on ASA TX, holding NOAC, holding oral HTN regimen given encephalopathy with PRN agents IV in the interim, holding statin. #6. Hypertension: Given presentation holding oral regimen, PRN IV regimen in interim, add back oral once clinically appropriate. #7. Hyperlipidemia: Hold oral statin regimen. #8. Anxiety and depression/bipolar disorder: Hold oral BuSpar and fluoxetine home regimen, add back once appropriate. #9. PAF: Holding oral Coreg regimen, hold eliquis, add back once clinically appropriate. #10. Dementia, unclear type with unclear behavioral disturbance history: Complicates presentation, temporarily hold Aricept home regimen given unsafe oral intake, add back once encephalopathy resolves, will maintain on fall and aspiration precautions, PT/OT/case management consulted for discharge planning. #11. Former tobacco use: Encourage continued tobacco cessation. #12. BURKE: BiPAP nightly. #13. DVT prophylaxis: Holding NOAC, maintain on heparin SC temporarily. Once oral intake safe may transition back to her NOAC for PAF. #14. CODE status: Patient HCPOA and living will are not in place but her is her medical decision-maker if necessary. Discussed CODE status at length including difference between FULL code, DNR-CCA and DNR-CC status. Following discussions about the differences in these status, requested Full Code status. Advanced Care Planning Face to Face Time: 16 minutes. Charges/Coding Visit Charges Inpatient E&M: 85850 Init Hosp L3 Procedures Hospitalists Procedures: 58875 Advncd Care Plan 30 Min
--- NOTE | 2024-04-20 19:49 | CT_ITS ---
PROCEDURE: CT abdomen pelvis without IV contrast REASON FOR EXAM: Pain, fever, UTI TECHNIQUE: Multiple contiguous axial images through the abdomen and pelvis were obtained without the administration of intravenous contrast. Two-dimensional coronal and sagittal reformatted images were reconstructed. Low-dose imaging technique was utilized. COMPARISON: 02/13/2024 FINDINGS: Mild bibasilar scarring/atelectasis. Moderate three-vessel coronary artery calcifications. Unenhanced liver, spleen, and adrenal glands are intact. Gallbladder is satisfactory. No significant biliary ductal dilation. No renal calculi or hydronephrosis. Stable bilateral renal cysts. Nondiagnostic assessment of the urinary bladder due to underdistention, Lopez catheter in place and extensive streak artifact from bilateral hip prostheses. Distal colonic diverticulosis. No bowel obstruction, focal bowel wall thickening or significant perienteric inflammation. No pelvic free fluid. No free air. Severely calcified nonaneurysmal abdominal aorta. No bulky adenopathy. Postsurgical change from ventral hernia repair. Generalized muscular atrophy. No definite acute osseous abnormality. Extensive scattered chronic fracture deformities throughout the ribs, spine, pelvis, sacrum and hips. CT/Abdomen/Pelvis without Cont IMPRESSION: 1. No acute process. 2. Multiple chronic/incidental findings as above. One or more dose reduction techniques were used (e.g., Automated exposure contr ol, adjustment of the mA and/or kV according to patient size, use of iterative reconstruction technique). Reading Location: [facility]
--- NOTE | 2024-04-20 21:04 | ED.RN ---
REPORT CALLED TO [facility].
[2024-04-20 21:49] LABS: Allen Test Positive; Base Excess -4 mmol/L (-2 to +2); Bicarbonate 20.6 mmol/L (22-26); Blood Gas Specimen Type ART; Mode Not entered; O2 Delivery Device Room Air; PO2 70 mmHG (75-100); SITE R Brach; SO2 95 % (95-99); Total Carbon Dioxide 22 mmol/L; pCO2 30.5 mmHg (35-45); pH 7.44 (7.35-7.45)
[2024-04-20] MEDS: 0.9% Normal Saline (1000mL) 1,000 ML 125 ML IV (22:13)
[2024-04-20] MEDS: Heparin Injection (Vial) 5,000 UNIT/ML VIAL 5000 UNIT SC (22:27)
[2024-04-20] MEDS: Pantoprazole Sodium 40 MG in 0.9% Normal Saline (100mL MB+) 100 ML 330 MG IV (22:27)
[2024-04-20] MEDS: Menthol/Lanolin/Calamine/Znox 113 GM Tube 1 APPLIC TOPICAL (22:27)
[2024-04-20] MEDS: Aspirin 300 MG Suppository RC (22:27)
[2024-04-20 22:50] LABS: Bedside Glucose 145 mg/dL (74-106)
--- NOTE | 2024-04-20 23:31 | CON.PCM.CC_ITS ---
HPI Consult Data Date of Consult: 04/20/24 HPI Narrative HPI Narrative: 68 y/o F w/ PMHx: HTN, HLD, Anxiety and Depression/Bipolar disorder, GERD, Former tobacco use, BURKE, Chronic migraines, PAF, Psoriatic arthritis, Dementia unclear type as well as unclear extent with unclear behavioral disturbance history, Nonobstructive CAD w/ Takotsubo syndrome with reduced EF of 20% 09/2023, Diabetes mellitus type II who has had several day hx of AMS. She has a similar presentation with UTIs. ED w/u with negative CT imaging but concerns for hyperglycemia, lacic acidosis and possibly severe sepsis. She is now admitted to the ICU. [facility] Medical History Myocardial infarction type 2 Non-ST elevation SD (NSTEMI) Hiatal hernia Irritable bowel Back pain due to injury Restless legs Injury of head and neck High cholesterol Hearing loss, right Bipolar disorder Depression Anxiety GERD (gastroesophageal reflux disease) Former smoker Sleep apnea Atrial fibrillation Migraines Dementia Closed intertrochanteric fracture of left hip Psoriatic arthritis Nonobstructive atherosclerosis of coronary artery Obesity Type 2 diabetes mellitus Takotsubo syndrome Hyperlipidemia Essential (primary) hypertension NSTEMI (non-ST elevated myocardial infarction) (01/06/18) Home Medications ?Medication ?Instructions ?Recorded ?Last Taken ?Type buspirone 7.5 mg tablet 22.5 mg PO BID anxiety 01/06 Unknown History fluoxetine 40 mg capsule 40 mg PO BID anxiety 8 Unknown History gabapentin 100 mg capsule 100 mg PO TID pain 04/14/23 01/04/24 History simvastatin 40 mg tablet 40 mg PO QHS cholesterol 04/07 Unknown History carvedilol 3.125 mg tablet 3.125 mg PO BID bp 30 days #60 tabs 01/05/24 Unknown Rx pantoprazole 40 mg tablet,delayed 40 mg PO BID stomach 30 days #60 01/05/24 Unknown Rx release (Protonix) tabs apixaban 2.5 mg tablet (Eliquis) 2.5 mg PO BID blood t hinner 02/14/24 Unknown History donepezil 5 mg tablet (Aricept) 5 mg PO DAILY alzheime rs 02/14/24 Unknown History ergocalciferol (vitamin D2) 1,250 1,250 mcg PO .COMPLE X 04/20/24 Unknown History mcg (50,000 unit) capsule (Vitamin D2) fexofenadine 180 mg tablet 180 mg PO DAILY 04/20/24 Un known History glipizide 10 mg tablet 10 mg PO DAILY 04/20/24 Unkn own History oxybutynin chloride 15 mg 30 mg PO DAILY 04/20/24 Unkn own History tablet,extended release 24 hr Allergy/AdvReac Type Severity Reaction Status Date / Time morphine Allergy Mild confusion Verified 04/20/24 15:06 codeine Allergy Itching Verified 04/20/24 15:06 fentanyl AdvReac confusion Verified 04/20/24 15:06 naproxen AdvReac Other Verified 02/13/24 16:26 Family History Mother Cancer skin Father Cancer prostate Surgical History History of back surgery History of carpal tunnel release of both wrists History of hysterectomy History of left heart catheterization (01/07/18) Social History household members: spouse Smoking Status: Former smoker how long ago did patient quit smokin years ago alcohol intake: never substance use type: does not use caffeine: Yes Type: carbonated beverages Number of servings: 1 ROS ROS Narrative As per HPI Objective Data Objective Data Vital Signs: Vital Signs Last response 3 Temperature 36.9 C 04/20/24 21:20 Temperature Source Temporal 04/20/24 21:20 Pulse Rate 113 H 04/20/24 21:31 Respiratory Rate 18 04/20/24 21:20 Blood Pressure 173/100 H 04/20/24 21:20 Blood Pressure Mean 124 04/20/24 21:20 Blood Pressure Source Monitor 04/20/24 21:20 Blood Pressure Position Semi-Fowlers 04/20/24 21:20 Blood Pressure Location Right Arm 04/20/24 21:20 Pulse Ox 94 04/20/24 21:20 Oxygen Delivery Method Room Air 04/20/24 21:20 I&O: I&O Last 24 Hours 3 04/19/24 04/20/24 04/20/24 23:59 12:59 23:59 Intake Total 2160 / 2160 Output Total 100 / 100 Balance 2060 / 2060 I&O: Total Stay 3 04/20/24 15:04 thru 04/20/24 23:30 Intake Total 2159 Output Total 100 2059 Current Meds Ordered / Administered: Current meds ordered / Administered 3 Generic Name Dose Route Start Last Admin Trade Name Freq PRN Reason Stop Dose Admin Acetaminophen 650 mg 04/20/24 21:16 Acetaminophen 650 Mg Suppository RC Q4H PRN PRN Fever, pain 1-10 Acetaminophen 650 mg 04/20/24 21:16 Acetaminophen 325 Mg Tablet PO Q4H PRN PRN Fever, pain 1-10/10 Al Hydroxide/Mg Hydroxide 30 ml 04/20/24 21:16 Mag Hydrox/Al Hydrox/Simeth 30 Ml Udc PO Q6H PRN PRN Gastric Burning Albuterol Sulfate 2.5 mg 04/20/24 21:16 Albuterol 2.5 Mg/3 Ml Vial.Neb. INHALATION Q2H PRN PRN Dyspnea, wheezing Aspirin 300 mg 04/20/24 21:16 04/20/24 22:27 Aspirin 300 Mg Suppository RC 300 mg DAILY REI Administration Calamine/Phenol 1 applic 04/20/24 22:00 04/20/24 22:27 Menthol/Lanolin/Calamine/Znox 113 Gm Tube TOPICAL 1 each 4X/DAY REI Administration Protocol Glucagon 1 mg 04/20/24 21:16 Glucagon 1 Mg/Ml Syringe IM X1 PRN HYPOGLYCEMIA Protocol Guaifenesin 10 ml 04/20/24 21:16 Guaifenesin 10 Ml Udc (200mg/10ml) PO Q4H PRN PRN COUGH Haloperidol Lactate 0.5 mg 04/20/24 21:16 Haloperidol Lactate 5 Mg/Ml Vial IV Q4H PRN PRN SEVERE AGITATION Protocol Heparin Sodium (Porcine) 5,000 unit 04/20/24 22:00 04/20/24 22:27 Heparin Injection (Vial) 5,000 Unit/Ml Vial SC 5,000 unit Q12 REI Administration Hydralazine HCl 10 mg 04/20/24 21:16 Hydralazine 20 Mg/Ml Vial IV Q4H PRN PRN SBP > 160 Protocol Sodium Chloride 1,000 mls @ 125 mls/hr 04/20/24 21:16 04/20/24 22:13 IV 04/21/24 09:15 125 mls/hr .Q8H REI Administration Protocol Ceftriaxone Sodium 2 gm/ 50 mls @ 100 mls/hr 04/21/24 10:00 Sodium Chloride IV Q24 REI Pantoprazole Sodium 40 mg/ 110 mls @ 330 mls/hr 04/20/24 22:00 04/20/24 23:30 Sodium Chloride IV Infused Q12 REI Infusion Dextrose 250 mls @ 0 mls/hr 04/20/24 21:16 Dextrose 10%-Water IV .Q0M PRN HYPOGLYCEMIA Protocol As Directed Sodium Chloride 100 mls @ 15 mls/hr 04/20/24 21:21 IV .Q6H40M PRN Saline Flush Sodium Chloride 100 mls @ 15 mls/hr 04/20/24 21:21 IV .Q6H40M PRN Additional IVPB Infusion Insulin Human Lispro 0 unit 04/20/24 21:16 04/20/24 22:32 Insulin Lispro 100 Unit/Ml Insuln.Pen SC Not Given Q6H [facility] Protocol Melatonin 3 mg 04/20/24 21:16 Melatonin 3 Mg Tablet PO QHS PRN PRN INSOMNIA Ondansetron HCl 4 mg 04/20/24 21:16 Ondansetron 4 Mg/2 Ml Vial IV Q8H PRN PRN NAUSEA/VOMITING Prochlorperazine Edisylate 5 mg 04/20/24 21:16 Prochlorperazine 10 Mg/2 Ml Vial IV Q4H PRN PRN Breakthrough Nausea/Vomiting Senna/Docusate Sodium 2 tablet 04/20/24 21:16 Senna/Docusate Sodium 1 Tablet PO BID PRN PRN Constipation Sodium Chloride 10 - 40 ml 04/20/24 21:21 0.9% Saline Lock 10 Ml Syringe IV UD PRN SALINE FLUSH Physical Exam Const no apparent distress Constitutional Narrative: Confused HEENT normocephalic HEENT Narrative: neck hematoma Eyes PERRL and EOMs intact bilaterally Chest inspection of chest normal Resp normal respiratory effort and no use of accessory muscles Cardio regular rate and regular rhythm GI GI Narrative: NT/ND Extremity no clubbing, cyanosis or edema Neuro moves all extremities and no focal motor deficits Lab / Micro Data 04/20/24 15:44 04/20/24 15:44 Labs: Laboratory Results - last 24 hr 04/20/24 15:30: Urine Color Yellow, Urine Clarity Sl. Cloudy, Urine pH 5.0, Ur Specific [place] 1.020, Urine Protein 500 H, Urine Glucose (UA) Normal, Urine Ketones 50 H, Urine Occult Blood 250 H, Urine Nitrite Negative, Urine Bilirubin 1 H, Urine Urobilinogen Normal, Ur Leukocyte Esterase 100 H, Urine RBC 0-5 SEEN, Urine WBC 10-25 SEEN, Ur Squamous Epith Cells 0-5 SEEN, Urine Bacteria 2+, Urine Mucus 1+ 04/20/24 15:33: POC Glucose 194 H 04/20/24 15:44: WBC 25.0 H, RBC 5.89 H, Hgb 17.1 H, Hct 51.0 H, MCV 86.6, MCH 29.0, MCHC 33.5, RDW Std Deviation 40.4, RDW Coeff of Gerhard 13.0, Plt Count 359, MPV 9.6, Immature Gran % (Auto) 0.800, Neut % (Auto) 86.6 H, Lymph % (Auto) 6.9 L, [place] % (Auto) 5.6, Eos % (Auto) 0.0, Baso % (Auto) 0.1, Absolute Neuts (auto) 21.6 H, Absolute Lymphs (auto) 1.72, Nucleated RBC % 0, Differential Comment SCANNED, PT 15.1 H, INR 1.2, APTT 25.1, Sodium 144, Potassium 4.0, Chloride 103, Carbon Dioxide 12.2 L, Anion Gap 29 H, BUN 47 H, Creatinine 1.57 H, Estim Creat Clear Calc 30.00 L, Est GFR (MDRD) Non-Af 35 L, BUN/Creatinine Ratio 29.9 H, G lucose 231 H, Lactic Acid 3.0 H*, Calcium 10.7, Total Bilirubin 1.15, AST 70 H, ALT 25, Alkaline Phosphatase 114 H, Total Creatine Kinase 762 H, Total Protein 8.1, Albumin 4.5, Globulin 3.6, Albumin/Globulin Ratio 1.2 04/20/24 22:32: POC Glucose 145 H Micro: Microbiology 04/20/24 15:30 Mucosa - Nose SARS-CoV-2, Influenza & RSV (PCR) - Final ABG Data ABG results: ABG 04/20/24 21:45 Specimen Type ART Sample Site R Brach pH 7.44 Bicarbonate Actual 20.6 L Total CO2 22 Base Excess -4 L O2 Saturation 95 O2 % 21.0 ABG pCO2 30.5 L ABG pO2 70 L Vaughn Test Positive O2 Delivery Device Room Air Vent Mode Not entered Imaging Radiology Impression Brain CT 04/20/24 15:14 IMPRESSION: No acute finding. Stable chronic microvascular ischemic changes and age-related changes. Reading Location: [facility] Cervical Spine CT 04/20/24 15:14 IMPRESSION: NO ACUTE CERVICAL FRACTURE. DEGENERATIVE CHANGES. One or more dose reduction techniques were used (e.g., Automated exposure control, adjustment of the mA and/or kV according to patient size, use of iterative reconstruction technique). Reading Location: [facility] Chest CT 04/20/24 15:14 IMPRESSION: 1. Visualization is limited by motion artifact. No large focal consolidation or pleural effusion. 2. Severe coronary artery calcifications. One or more dose reduction techniques were used (e.g., Automated exposure control, adjustment of the mA and/or kV according to patient size, use of iterative reconstruction technique). Reading Location: [facility] Pelvis X-Ray 04/20/24 15:22 IMPRESSION: Chronic appearing bilateral trochanteric fractures, please correlate. Chronic bilateral pubic rami fractures, worse on the right. No definite acute displaced fracture or dislocation. Right femoral nail and left total hip prosthesis. Chronic compression fractures of the lower lumbar spine. [facility] Abdomen/Pelvis CT 04/20/24 19:49 IMPRESSION: 1. No acute process. 2. Multiple chronic/incidental findings as above. One or more dose reduction techniques were used (e.g., Automated exposure control, adjustment of the mA and/or kV according to patient size, use of iterative reconstruction technique). Reading [facility] Assessment and Plan . Assessment and plan: Toxic Metabolic Encephalopathy DURAN AMS Sepsis ?UTI AGMA Lactic Acidosis pAF Hx of Dementia Plan - admit icu - CT Head negative - ?infectious etiology - Follow up cultures - continue abx (rocephin) - Repeat lactic acid - given IVF - Follow up BHB given AGMA but likely 2/2 lactic acidosis c/b DURAN - heparin for GI ppx - PPI for GI ppx Critical Care Time: 60 minutes The entirety of this encounter was done via Telemedicine
--- NOTE | 2024-04-20 23:48 | ECHOD_ITS ---
Reason For Study Reason For Study: ENDOCARDITIS Procedure This was a 2D Doppler, Color Flow transthoracic echocardiogram. The study was technically difficult. Definity deferred due to no IV access. Exam performed portable in ICU/CCU. Left Ventricle Normal LV size. The estimated ejection fraction is 60 %. No evidence for diastolic dysfunction. No regional wall motion abnormalities noted. Right Ventricle Normal RV size. Normal systolic function. Atria The left and right atria are normal. No doppler evidence for ASD. Mitral Valve There is mild mitral annular calcification. There is no mitral valve stenosis. Trivial mitral valve insufficiency. Tricuspid Valve There is no tricuspid stenosis. Unable to estimate RV systolic pressure due to inadequate jet, pulmonary artery pressure probably normal. Aortic Valve Trisinus/trileaflet aortic valve. There is no aortic stenosis. Trivial aortic valve insufficiency. Pulmonic Valve There is no pulmonic valvular stenosis. No pulmonic valve insufficiency. Great Vessels Normal sized aortic root. Pericardium/Pleural No pericardial effusion. MMode/2D Measurements & Calculations LVIDd: 4.7 cm IVSd: 1.2 cm LVOT diam: 2.0 cm LVIDs: 4.2 cm LVPWd: 1.4 cm LVOT area: 3.0 cm2 RVDd: 2.3 cm FS: 10.8 % Ao root diam: 3.7 cm LAV(MOD-sp4): 48.0 ml LVAd ap4: 27.3 cm2 LVLd ap4: 7.9 cm EDV(MOD-sp4): 80.2 ml EDV(sp4-el): 80.6 ml LVAs ap4: 17.4 cm2 LVLs ap4: 6.3 cm ESV(MOD-sp4): 42.8 ml ESV(sp4-el): 40.3 ml EF(MOD-sp4): 46.6 % EF(sp4-el): 50.0 % SV(MOD-sp4): 37.4 ml SV(sp4-el): 40.3 ml LA A4 area: 18.1 cm2 SI(MOD-sp4): 21.3 ml/m2 LA dimension(2D): 3.2 cm RA A4 area: 11.2 cm2 Time Measurements MV dec time: 0.07 sec Doppler Measurements & Calculations MV E max moustapha: 56.5 cm/sec Lat Peak E' Moustapha: 7.2 cm/sec Med Peak E' Moustapha: 5.3 cm/sec MV A max moustapha: 112.8 cm/sec E/E' lat: 7.8 E/E' med: 10.7 MV E/A: 0.50 MV V2 max: 116.7 cm/sec Ao V2 max: 155.7 cm/sec MV max P.5 mmHg MV dec slope: 845.2 cm/sec2 Ao max P.7 mmHg MV V2 mean: 70.9 cm/sec Ao V2 mean: 101.2 cm/sec MV mean P.3 mmHg Ao mean P.8 mmHg MV V2 VTI: 26.6 cm Ao V2 VTI: 31.4 cm AV (velocity ratio): 0.64 MVA(VTI): 2.3 cm2 IDALIA(I,D): 1.9 cm2 IDALIA(V,D): 2.1 cm2 LV V1 max: 107.6 cm/sec SV(LVOT): 60.6 ml PA V2 max: 84.0 cm/sec LV V1 max P.7 mmHg PA V2 mean: 57.8 cm/sec LV V1 mean P.0 mmHg LV V1 mean: 64.2 cm/sec LV V1 VTI: 20.2 cm ECHO/Echo Complete Interpretation Summary The estimated ejection fraction is 60 %. No evidence for diastolic dysfunction. Trivial mitral valve insufficiency. Trivial aortic valve insufficiency. Ordering Physician: Alden Finn Referring Physician: BAILEE GRANT Performed By: Daiana Cabello RCS
[2024-04-21] VITALS (14 sets, daily range): BP systolic 102–167; BP diastolic 48–94; PULSE 78–116; RESP 14–27; TEMP 36.2–37.9; O2SAT 30–100; BMI 25.1
[2024-04-21 00:40] LABS: Lactic Acid 2.1 mmol/L (0.0-2.0)
[2024-04-21 03:14] LABS: BETA-HYDROXYBUTYRATE 3.5 mmol/L (0.0-0.3); Magnesium 2.1 mg/dL (1.5-2.2); Phosphorus 2.2 mg/dL (2.7-4.5)
[2024-04-21] MEDS: 0.9% Normal Saline (1000mL) 1,000 ML 999 ML IV ×3 (03:20→14:00)
[2024-04-21 03:49] LABS: Bedside Glucose 122 mg/dL (74-106)
[2024-04-21 04:48] LABS: Absolute Lymphocyte Count 1.85 X10^3/uL (0.83-4.51); Basophil# 0.01 X10^3/uL; Basophil% 0.1 % (0-1); Eosinophil# 0.03 X10^3/uL; Eosinophils% 0.2 % (0-5); Hematocrit 39.1 % (37-47); Hemoglobin 12.5 g/dL (12.0-15.0); Lymphocyte # 1.85 X10^3/ul (0.83-4.51); Lymphocyte % 11.4 % (19-41); Mean Corpuscular Hgb 29.1 pg (27.0-32.0); Mean Corpuscular Volume 91.1 fL (81-99); Mean Platelet Vol. 9.8 fl (6.2-12.0); Monocyte# 1.27 X10^3/uL; Monocyte% 7.8 % (0-10); NRBC Flagged by Analyzer 0 % (0-5); Neutrophil # 12.96 X10^3/uL (2.7-7.7); Neutrophil % 79.9 % (47-70); Platelet Count 237 K/mm3 (150-450); RBC Distribution Width CV 13.2 % (11.6-14.6); Red Blood Count 4.29 M/mm3 (4.2-5.4); White Blood Count 16.2 K/mm3 (4.4-11.0)
--- NOTE | 2024-04-21 06:03 | NURSING ---
DR Aguilar notified that Fluid bolus compolete and urine out is still very low. NO new orders at this time.
[2024-04-21 06:18] LABS: ALB/GLOB Ratio 1.4 RATIO (0.9-2.4); AST(SGOT) 32 U/L (<=31); Alanine Aminotransfer ALT/SGPT 20 U/L (<=34); Albumin, Serum 3.4 g/dL (3.4-4.8); Alkaline Phosphatase 76 U/L (35-104); Anion Gap 16 (5-15); BUN 47 mg/dL (4-19); BUN/Creat Ratio 36.7 RATIO (10-20); Calcium,Total 8.5 mg/dL (7.6-11.0); Carbon Dioxide 15.4 mmol/L (21.0-32.0); Chloride 115 mmol/L (98-108); Creatinine, Serum 1.27 mg/dL (0.70-1.20); EST Glomerular Filtration Rate 45 (>60); Estimated Creatinine Clearance 40.08 ml/min (50-250); Globulin 2.4 g/dL (2.2-4.2); Glucose 142 mg/dL (70-99); Potassium 3.7 mmol/L (3.3-5.1); Protein, Total 5.8 g/dL (5.9-8.4); Sodium Level 146 mmol/L (133-145); Total Bilirubin 0.43 mg/dL (0.00-1.30)
[2024-04-21 06:34] LABS: CPK Total, Creatine Kinase 239 U/L (24-195)
--- NOTE | 2024-04-21 07:00 | CPS ---
V60 mode changed to AVAPS due to consistently low VT
--- NOTE | 2024-04-21 07:41 | PCM.PN.INT ---
Assessment & Plan Assessment/Plan (1) Acute delirium: PLAN: Plan RECOMMENDATIONS: 1. Continue gentle IV fluid hydration. 2. Continue empiric antibiotics pending cultures. 3. Continue appropriate DVT prophylaxis. 4. Check beta hydroxybutyrate level. If elevated, start insulin infusion. 5. Encourage incentive spirometer use and mobilize patient as tolerated. 6. Will sign off from a critical care perspective. Please call with any additional questions. IMPRESSIONS: 1. Altered mental status Most likely metabolic in etiology with concern for recurrent UTI versus mild DKA. Plan to continue IV fluid resuscitation as ordered. The patient will be maintained on antimicrobials, pending further infectious workup. In the interim, recommend checking beta hydroxybutyrate level, and if elevated, starting insulin infusion. Otherwise, the patient is clinically stable. Continue sliding scale insulin coverage for now. 2. Acute kidney injury Most likely prerenal in etiology. Creatinine is improving with volume expansion. Continue to monitor urine output for now. No current indication for renal replacement therapy. 3. History of GI bleed/history of Takotsubo cardiomyopathy/hypertension/hyperlipidemia/paroxysmal atrial fibrillation Complicates care, management, recovery and prognosis. Continue home medications as indicated. This note was generated with [employer] dictation software. It may contain incorrect words, spelling, and punctuation that were not noted in checking the note before signing. Subjective Subjective The patient was seen and examined at the bedside this morning. Events from the last 24 hours have been reviewed. The patient is currently afebrile, hemodynamically stable and maintaining appropriate oxygen saturations on 2 L/min via nasal cannula. The patient was tolerant of PAP therapy overnight. White blood cell count is elevated at 16,000. Sodium is elevated at 146 with a chloride of 115 and creatinine of 1.27. The patient is currently documented to be overall net +3.9 L for the hospitalization. Objective Data Objective Data The patient's most recent lab work, culture data and imaging studies have all been personally reviewed. Blood and urine cultures are pending. Vital Signs: Vital Signs Temp Pulse Resp BP Pulse Ox O2 Del Method FiO2 97.2 F L 78 16 119/79 94 Bi-pap 30 04/21/24 06:00 04/21/24 06:00 04/21/24 06:00 04/21/24 06:00 04/21/24 06:00 04/21/24 06:00 04/21/24 06:00 Oxygen Delivery Method Bi-pap Weight: 151 lb 0.266 oz Body Mass Index (BMI) 25.1 Intake & Output: Intake and Output for Last 24 Hours 04/19/24 04/21/24 04/21/24 23:59 00:59 23:59 Intake Total 2160 / 2160 1641.67 / 1641.67 Output Total 100 / 160 145 / 145 Balance 2059 1496.67 / 1496.67 Lab / Micro Data Attestation: I reviewed the patient's lab results. 04/21/24 04:30 04/21/24 04:30 Labs: Laboratory Results - last 24 hr 04/20/24 15:30: Urine Color Yellow, Urine Clarity Sl. Cloudy, Urine pH 5.0, Ur Specific [place] 1.020, Urine Protein 500 H, Urine Glucose (UA) Normal, Urine Ketones 50 H, Urine Occult Blood 250 H, Urine Nitrite Negative, Urine Bilirubin 1 H, Urine Urobilinogen Normal, Ur Leukocyte Esterase 100 H, Urine RBC 0-5 SEEN, Urine WBC 10-25 SEEN, Ur Squamous Epith Cells 0-5 SEEN, Urine Bacteria 2+, Urine Mucus 1+ 04/20/24 15:33: POC Glucose 194 H 04/20/24 15:44: WBC 25.0 H, RBC 5.89 H, Hgb 17.1 H, Hct 51.0 H, MCV 86.6, MCH 29.0, MCHC 33.5, RDW Std Deviation 40.4, RDW Coeff of Gerhard 13.0, Plt Count 359, MPV 9.6, Immature Gran % (Auto) 0.800, Neut % (Auto) 86.6 H, Lymph % (Auto) 6.9 L, [place] % (Auto) 5.6, Eos % (Auto) 0.0, Baso % (Auto) 0.1, Absolute Neuts (auto) 21.6 H, Absolute Lymphs (auto) 1.72, Nucleated RBC % 0, Differential Comment SCANNED, PT 15.1 H, INR 1.2, APTT 25.1, Sodium 144, Potassium 4.0, Chloride 103, Carbon Dioxide 12.2 L, Anion Gap 29 H, BUN 47 H, Creatinine 1.57 H, Estim Creat Clear Calc 30.00 L, Est GFR (MDRD) Non-Af 35 L, BUN/Creatinine Ratio 29.9 H, Glucose 231 H, Lactic Acid 3.0 H*, Calcium 10.7, Phosphorus 2.2 L 04/20/24 15:44: Phosphorus Cancelled, Magnesium 2.1, Total Bilirubin 1.15, AST 70 H, ALT 25, Alkaline Phosphatase 114 H, Total Creatine Kinase 762 H, Total Protein 8.1, Albumin 4.5, Globulin 3.6, Albumin/Globulin Ratio 1.2, b-Hydroxybutyric mmol/L 3.5 04/20/24 22:32: POC Glucose 145 H 04/21/24 00:03: Lactic Acid 2.1 H 04/21/24 03:30: POC Glucose 122 H 04/21/24 04:30: WBC 16.2 H, RBC 4.29, Hgb 12.5, Hct 39.1, MCV 91.1 D, MCH 29.1, MCHC 32.0, RDW Std Deviation 44.0 H, RDW Coeff of Gerhard 13.2, Plt Count 237, MPV 9.8, Immature Gran % (Auto) 0.600, Neut % (Auto) 79.9 H, Lymph % (Auto) 11.4 L, [place] % (Auto) 7.8, Eos % (Auto) 0.2, Baso % (Auto) 0.1, Absolute Neuts (auto) 13.0 H, Absolute Lymphs (auto) 1.85, Nucleated RBC % 0, Sodium 146 H, Potassium 3.7, Chloride 115 H, Carbon Dioxide 15.4 L, Anion Gap 16 H, BUN 47 H, Creatinine 1.27 H, Estim Creat Clear Calc 40.08 L, Est GFR (MDRD) Non-Af 45 L, BUN/Creatinine Ratio 36.7 H, Glucose 142 H, Calcium 8.5, Total Bilirubin 0.43, AST 32, ALT 20, Alkaline Phosphatase 76, Total Creatine Kinase 239 H, Total Protein 5.8 L, Albumin 3.4, Globulin 2.4, Albumin/Globulin Ratio 1.4 Micro: Microbiology 04/20/24 21:27 Nasal Secretion MRSA (PCR) - Final 04/20/24 15:30 Mucosa - Nose SARS-CoV-2, Influenza & RSV (PCR) - Final ABG Data ABG results: ABG 04/20/24 21:45 Specimen Type ART Sample Site R Brach pH 7.44 Bicarbonate Actual 20.6 L Total CO2 22 Base Excess -4 L O2 Saturation 95 O2 % 21.0 ABG pCO2 30.5 L ABG pO2 70 L Vaughn Test Positive O2 Delivery Device Room Air Vent Mode Not entered Radiography Diagnostic Testing: Radiology Impression Brain CT 04/20/24 15:14 IMPRESSION: No acute finding. Stable chronic microvascular ischemic changes and age-related changes. Reading Location: [facility] Cervical Spine CT 04/20/24 15:14 IMPRESSION: NO ACUTE CERVICAL FRACTURE. DEGENERATIVE CHANGES. One or more dose reduction techniques were used (e.g., Automated exposure control, adjustment of the mA and/or kV according to patient size, use of iterative reconstruction technique). Reading Location: [facility] Chest CT 04/20/24 15:14 IMPRESSION: 1. Visualization is limited by motion artifact. No large focal consolidation or pleural effusion. 2. Severe coronary artery calcifications. One or more dose reduction techniques were used (e.g., Automated exposure control, adjustment of the mA and/or kV according to patient size, use of iterative reconstruction technique). Reading Location: [facility] Pelvis X-Ray 04/20/24 15:22 IMPRESSION: Chronic appearing bilateral trochanteric fractures, please correlate. Chronic bilateral pubic rami fractures, worse on the right. No definite acute displaced fracture or dislocation. Right femoral nail and left total hip prosthesis. Chronic compression fractures of the lower lumbar spine. Reading Location: [facility] Abdomen/Pelvis CT 04/20/24 19:49 IMPRESSION: 1. No acute process. 2. Multiple chronic/incidental findings as above. One or more dose reduction techniques were used (e.g., Automated exposure control, adjustment of the mA and/or kV according to patient size, use of iterative reconstruction technique). Reading Location: [facility] Physical Exam Const alert and no apparent distress Constitutional Narrative: BiPAP mask currently in place. General Appearance: cooperative HEENT normocephalic and head/scalp atraumatic Eyes EOMs intact bilaterally, conjunctivae normal and no scleral icterus Neck supple General: trachea midline Chest inspection of chest normal Resp normal respiratory effort Auscultation: diminished lung sounds; Negative for rales, rhonchi or wheezes Cardio regular rate and regular rhythm GI normal to inspection, nondistended, normoactive bowel sounds Extremity no clubbing, cyanosis or edema Skin no rashes or lesions noted Neuro CN's II-XII intact bilaterally, moves all extremities and no focal motor deficits Psych Mood & Affect: flat affect Charges/Coding Visit Charges Inpatient E&M: 27317 Subs Hosp L2
--- NOTE | 2024-04-21 09:33 | NURSING ---
Echo in progress
--- NOTE | 2024-04-21 09:34 | NURSING ---
Pt has no IV access at this time and unable to get labs, MDs aware- awaiting PICC placement
[2024-04-21] MEDS: 0.9% Normal Saline (1000mL) 1,000 ML 125 ML IV (10:54)
[2024-04-21] MEDS: Aspirin 300 MG Suppository RC (10:56)
[2024-04-21] MEDS: 0.9% Saline Lock 10 ML Syringe IV ×2 (10:56→21:11)
[2024-04-21] MEDS: Pantoprazole Sodium 40 MG in 0.9% Normal Saline (100mL MB+) 100 ML 330 MG IV ×2 (10:56→21:10)
[2024-04-21] MEDS: Menthol/Lanolin/Calamine/Znox 113 GM Tube 1 APPLIC TOPICAL ×2 (10:56→21:12)
[2024-04-21] MEDS: Heparin Injection (Vial) 5,000 UNIT/ML VIAL 5000 UNIT SC ×2 (10:57→21:27)
[2024-04-21] MEDS: Ceftriaxone 2 GM in 0.9% Normal Saline (50mL MB+) 50 ML IV (11:33)
[2024-04-21 12:21] LABS: Bedside Glucose 89 mg/dL (74-106)
--- NOTE | 2024-04-21 13:31 | CHAPLAIN ---
Type of Pastoral Visit ___ Initial Visit ___ Follow-up Visit ___ On-call Visit ___ General Patient Visit ___ Spiritual Assessment ___ Family Conference ___ Bereavement ___ Rapid Response ___ Code Blue ___ Other (describe below) Pastoral Care Referral From ___ Patient ___ Family ___ Nurse ___ Physician ___ Life Insurance Underwriter ___ Mainspring Former Brace End ___ Other (describe below) Sacrament/Intervention ___ Active listening ___ Anointing ___ Sikh ___ Bereavement ___ Communion ___ Adrianna exploration ___ ___ Life review ___ Prayer ___ Reconciliation ___ Sacrament of Sick ___ Supportive presence ___ Wedding ___ Other (describe below) Pastoral Comments patient is sound asleep; left a calling card
--- NOTE | 2024-04-21 14:40 | CASEMGMT ---
RN CM called daughter Pam for initial transition planning/care coordination assessment as patient is confused. RN CM introduced self and role at [facility]. Daughter willing to participate in assessment and is able to answer all questions appropriately. Care providers, pharmacy, and demographics verified. Strata: 3 PCP: Merlin Specialists: none Preferred Pharmacy: [facility] Retail at discharge Insurance: [facility] Dual Prescription Benefit: yes Living Will/HPOA: none LNOK: , daughter Living Arrangements: Patient lives with in a mobile home with ramp to enter. assists patient with ADLs. Per Daughter, patient only sponge baths once a weak and refuses to toilet and uses depends at home. Transportation: DME/HHC: Patient has shower chair, walker, wheelchair, medical alert, and glucometer at home. Patient has had [facility] HHC in the past. Patient has been to [place] and [facility] in the past. Daughter unsure of discharge disposition, will monitor progress with therapy. Daughter states she has no further needs or concerns at this time. CM to follow for discharge planning needs that may arise. Disposition Plan: TBD, anticipate HHC vs SNF pending progress with therapy. Mia ROCAN, RN, CM
[2024-04-21 15:28] LABS: Bedside Glucose 84 mg/dL (74-106)
[2024-04-21 16:30] LABS: Anion Gap 10 (5-15); BUN 34 mg/dL (4-19); BUN/Creat Ratio 36.5 RATIO (10-20); Carbon Dioxide 20.1 mmol/L (21.0-32.0); Chloride 118 mmol/L (98-108); Creatinine, Serum 0.93 mg/dL (0.70-1.20); EST Glomerular Filtration Rate 66 (>60); Estimated Creatinine Clearance 54.74 ml/min (50-250); Glucose 104 mg/dL (70-99); Potassium 3.4 mmol/L (3.3-5.1); Sodium Level 148 mmol/L (133-145)
--- NOTE | 2024-04-21 16:42 | PN.HOSP_ITS ---
Reason for Visit Reason for Visit: Diagnoses Sepsis, unspecified organism (04/20/24) Urinary tract infection, site not specified (04/20/24) Disorientation, unspecified (04/20/24) Subjective Subjective Patient was seen and examined today, she is n.p.o. due to her inability to participate with speech therapy. Objective Data Objective Data Vital Signs: Vital Signs Temp Pulse Resp BP Pulse Ox O2 Del Method O2 Flow Rate 98.8 F 82 17 160/94 H 95 Room Air 2 04/21/24 12:32 04/21/24 12:32 04/21/24 12:32 04/21/24 12:32 04/21/24 14:24 04/21/24 14:24 04/21/24 08:03 FiO2 30 04/21/24 06:00 Oxygen Flow Rate (L/min) 2 Oxygen Delivery Method Room Air Weight: 68.5 kg Body Mass Index (BMI) 25.1 Intake & Output: Intake and Output for Last 24 Hours 04/19/24 04/21/24 04/21/24 23:59 00:59 23:59 Intake Total 2160 / 2160 4160.00 / 4160.00 Output Total 100 / 160 385 / 385 Balance 2059 / 1999 3775.00 / 3775.00 Lab / Micro Data 04/21/24 04:30 04/21/24 15:50 Labs: Laboratory Results - last 24 hr 04/20/24 15:30: Urine RBC 0-5 SEEN, Urine WBC 10-25 SEEN, Ur Squamous Epith Cells 0-5 SEEN, Urine Bacteria 2+, Urine Mucus 1+ 04/20/24 15:33: POC Glucose 194 H 04/20/24 15:44: Differential Comment SCANNED, Sodium 144, Potassium 4.0, Chloride 103, Carbon Dioxide 12.2 L, Anion Gap 29 H, BUN 47 H, Creatinine 1.57 H , Estim Creat Clear Calc 30.00 L, Est GFR (MDRD) Non-Af 35 L, BUN/Creatinine Ratio 29.9 H, Glucose 231 H, Lactic Acid 3.0 H*, Calcium 10.7, Phosphorus 2.2 L 04/20/24 15:44: Phosphorus Cancelled, Magnesium 2.1, Total Bilirubin 1.15, AST 70 H, ALT 25, Alkaline Phosphatase 114 H, Total Creatine Kinase 762 H, Total Protein 8.1, Albumin 4.5, Globulin 3.6, Albumin/Globulin Ratio 1.2, b- Hydroxybutyric mmol/L 3.5 04/20/24 22:32: POC Glucose 145 H 04/21/24 00:03: Lactic Acid 2.1 H 04/21/24 03:30: POC Glucose 122 H 04/21/24 04:30: WBC 16.2 H, RBC 4.29, Hgb 12.5, Hct 39.1, MCV 91.1 D, MCH 29.1, MCHC 32.0, RDW Std Deviation 44.0 H, RDW Coeff of Gerhard 13.2, Plt Count 237, MPV 9.8, Immature Gran % (Auto) 0.600, Neut % (Auto) 79.9 H, Lymph % (Auto) 11.4 L, [place] % (Auto) 7.8, Eos % (Auto) 0.2, Baso % (Auto) 0.1, Absolute Neuts (auto) 13.0 H, Absolute Lymphs (auto) 1.85, Nucleated RBC % 0, Sodium 146 H, Potassium 3.7, Chloride 115 H, Carbon Dioxide 15.4 L, Anion Gap 16 H, BUN 47 H, Creatinine 1.27 H, Estim Creat Clear Calc 40.08 L, Est GFR (MDRD) Non-Af 45 L, B UN/Creatinine Ratio 36.7 H, Glucose 142 H, Calcium 8.5, Total Bilirubin 0.43, AST 32, ALT 20, Alkaline Phosphatase 76, Total Creatine Kinase 239 H, Total Protein 5.8 L, Albumin 3.4, Globulin 2.4, Albumin/Globulin Ratio 1.4, b- Hydroxybutyric mmol/L 1.0 04/21/24 11:09: POC Glucose 89 04/21/24 15:08: POC Glucose 84 04/21/24 15:50: Sodium 148 H, Potassium 3.4, Chloride 118 H, Carbon Dioxide 20.1 L, Anion Gap 10, BUN 34 H, Creatinine 0.93, Estim Creat Clear Calc 54.74, Est GFR (MDRD) Non-Af 66, BUN/Creatinine Ratio 36.5 H, Glucose 104 H, Calcium 8.0 Micro: Microbiology 04/20/24 15:30 Urine, Catheterized Urine Culture - Preliminary Culture exhibits no growth. 04/20/24 21:27 Nasal Secretion MRSA (PCR) - Final 04/20/24 15:30 Mucosa - Nose SARS-CoV-2, Influenza & RSV (PCR) - Final ABG Data ABG results: ABG 04/20/24 21:45 Specimen Type ART Sample Site R Brach pH 7.44 Bicarbonate Actual 20.6 L Total CO2 22 Base Excess -4 L O2 Saturation 95 O2 % 21.0 ABG pCO2 30.5 L ABG pO2 70 L Vaughn Test Positive O2 Delivery Device Room Air Vent Mode Not entered Radiography Diagnostic Testing: Radiology Impression Chest CT 04/20/24 15:14 IMPRESSION: 1. Visualization is limited by motion artifact. No large focal consolidation or pleural effusion. 2. Severe coronary artery calcifications. One or more dose reduction techniques were used (e.g., Automated exposure control, adjustment of the mA and/or kV according to patient size, use of iterative reconstruction technique). Reading Location: [facility] Pelvis X-Ray 04/20/24 15:22 IMPRESSION: Chronic appearing bilateral trochanteric fractures, please correlate. Chronic bilateral pubic rami fractures, worse on the right. No definite acute displaced fracture or dislocation. Right femoral nail and left total hip prosthesis. Chronic compression fractures of the lower lumbar spine. Reading Location: [facility] Abdomen/Pelvis CT 04/20/24 19:49 IMPRESSION: 1. No acute process. 2. Multiple chronic/incidental findings as above. One or more dose reduction techniques were used (e.g., Automated exposure control, adjustment of the mA and/or kV according to patient size, use of iterative reconstruction technique). Reading Location: [facility] Echocardiogram 04/20/24 23:48 Interpretation Summary The estimated ejection fraction is 60 %. No evidence for diastolic dysfunction. Trivial mitral valve insufficiency. Trivial aortic valve insufficiency. Ordering Physician: Alden Finn Referring Physician: BAILEE GRANT Performed By: Daiana Cabello RCS Physical Exam Const alert and no apparent distress Constitutional Narrative: Patient is confused General Appearance: cooperative and well developed Orientation / Consciousness: awake HEENT normocephalic, head/scalp atraumatic and moist oral mucous membranes Eyes PERRL, EOMs intact bilaterally and conjunctivae normal Neck supple, no JVD, thyroid normal and no carotid bruits General: trachea midline Resp normal respiratory effort, no retractions, no use of accessory muscles and clear to auscultation bilaterally Auscultation: Negative for rales, rhonchi or wheezes Cardio regular rate, regular rhythm, S1 normal heart sound, S2 normal heart sound, no murmurs, no rub and no gallops GI normal to inspection, nondistended, normoactive bowel sounds, soft to palpation, non-tender and non-distended Extremity no clubbing, cyanosis or edema Skin no rashes or lesions noted General Skin Exam: no breakdown Neuro CN's II-XII intact bilaterally and no focal motor deficits Neuro Narrative: Patient is confused Sensorium / Orientation: awake and alert Psych Psych Narrative: Patient is confused Assessment & Plan Assessment/Plan (1) High anion gap metabolic acidosis: PLAN: Plan 1. Metabolic encephalopathy secondary to acute kidney injury from dehydration on a backdrop of dementia-I have elected to continue fluids with D5 half-normal saline at 75 cc an hour, labs will be rechecked tomorrow #2 acute kidney injury-secondary to dehydration, continue IV fluids, recheck labs #3 dementia-complicates care, management, recovery, and prognosis #4 acute cystitis-continue IV Rocephin, await final urine culture, patient's preliminary culture shows no growth #5 depression/bipolar disorder-complicates care, management, recovery, and prognosis I do not feel the patient is septic, I do not feel the patient has rhabdomyolysis Total clinical time spent by myself addressing the patient's medical issues, reviewing all of her data, and collaborating with patient's care team: 35 minutes Charges/Coding Visit Charges Inpatient E&M: 88935 Subs Hosp L2
[2024-04-21] MEDS: Dext 5%-0.45% NS 1,000 ML 75 ML IV (17:11)
[2024-04-21] MEDS: Ondansetron 4 MG/2 ML Vial IV (21:10)
[2024-04-21] MEDS: Haloperidol Lactate 5 MG/ML Vial IV (21:26)
[2024-04-21] MEDS: proCHLORPERazine 10 MG/2 ML Vial 5 MG IV (23:25)
[2024-04-22 00:45] LABS: Bedside Glucose 91 mg/dL (74-106)
[2024-04-22 02:00] VITALS: BP 155/80; PULSE 84; RESP 13; TEMP 37.3; O2SAT 99
[2024-04-22 03:57] LABS: Bedside Glucose 105 mg/dL (74-106)
[2024-04-22 05:10] LABS: Anion Gap 9 (5-15); BUN 23 mg/dL (4-19); BUN/Creat Ratio 25.6 RATIO (10-20); Calcium,Total 8.2 mg/dL (7.6-11.0); Carbon Dioxide 21.2 mmol/L (21.0-32.0); Chloride 113 mmol/L (98-108); Creatinine, Serum 0.91 mg/dL (0.70-1.20); EST Glomerular Filtration Rate 68 (>60); Estimated Creatinine Clearance 55.94 ml/min (50-250); Glucose 120 mg/dL (70-99); Potassium 2.9 mmol/L (3.3-5.1); Sodium Level 143 mmol/L (133-145)
[2024-04-22 05:29] VITALS: BMI 25.1
[2024-04-22] MEDS: Dext 5%-0.45% NS 1,000 ML 75 ML IV (06:13)
[2024-04-22] MEDS: 0.9% Saline Lock 10 ML Syringe IV (06:15)
[2024-04-22 08:15] VITALS: O2SAT 99
[2024-04-22] MEDS: Menthol/Lanolin/Calamine/Znox 113 GM Tube 1 APPLIC TOPICAL (09:17)
[2024-04-22] MEDS: Heparin Injection (Vial) 5,000 UNIT/ML VIAL 5000 UNIT SC (09:18)
[2024-04-22] MEDS: Pantoprazole Sodium 40 MG in 0.9% Normal Saline (100mL MB+) 100 ML 330 MG IV (09:32)
[2024-04-22] MEDS: Ceftriaxone 2 GM in 0.9% Normal Saline (50mL MB+) 50 ML IV (10:45)
[2024-04-22 10:46] LABS: Bedside Glucose 105 mg/dL (74-106)
[2024-04-22] MEDS: Aspirin 300 MG Suppository RC (10:46)
--- NOTE | 2024-04-22 12:53 | CHAPLAIN ---
Type of Pastoral Visit _x__ Initial Visit ___ Follow-up Visit ___ On-call Visit ___ General Patient Visit ___ Spiritual Assessment ___ Family Conference ___ Bereavement ___ Rapid Response ___ Code Blue ___ Other (describe below) Pastoral Care Referral From _x__ Patient ___ Family ___ Nurse ___ Physician ___ Income Auditor ___ City Superintendent Of Schools ___ Other (describe below) Sacrament/Intervention _x__ Active listening ___ Anointing ___ Jew ___ Bereavement ___ Communion ___ Adrianna exploration ___ ___ Life review _x__ Prayer ___ Reconciliation ___ Sacrament of Sick _x__ Supportive presence ___ Wedding ___ Other (describe below) Pastoral Comments patient acknowledges frustrations that her health has been poor and that she has to be hospitalized often; pt speaks of having adrianna in God to see her through and that she would welcome a prayer; pt is asked about other means of support and about her coping abilities
--- NOTE | 2024-04-22 13:16 | CASEMGMT ---
Social Work Pt has Passport, but the only service she has is a life alert button. SW called her CM, Radha Smith([phone]), she was not in. DAVIS let the coverage line know pt is in the hospital. HOANG Sorensen
[2024-04-22] MEDS: Insulin Lispro 100 UNIT/ML INSULN.PEN SC (14:42)
[2024-04-22 14:46] VITALS: BP 122/79; PULSE 80; RESP 18; TEMP 37.6; O2SAT 97
[2024-04-22 14:57] LABS: Bedside Glucose 159 mg/dL (74-106)
[2024-04-22 17:28] LABS: Bedside Glucose 145 mg/dL (74-106)
--- NOTE | 2024-04-22 17:40 | PCM.PN.HOSP ---
Reason for Visit Reason for Visit: Diagnoses Sepsis, unspecified organism (04/20/24) Other acidosis (04/20/24) Urinary tract infection, site not specified (04/20/24) Disorientation, unspecified (04/20/24) Subjective Subjective Patient was seen and examined today, she is more alert and is oriented as to self and place. Speech passed her for oral intake. Potassium was low this morning and I wrote for oral potassium supplementation Objective Data Objective Data Vital Signs: Vital Signs Temp Pulse Resp BP Pulse Ox O2 Del Method O2 Flow Rate 99.7 F H 80 18 122/79 H 97 Room Air 2 04/22/24 14:46 04/22/24 14:46 04/22/24 14:46 04/22/24 14:46 04/22/24 14:46 04/22/24 14:46 04/22/24 08:30 FiO2 30 04/21/24 06:00 Oxygen Flow Rate (L/min) 2 Oxygen Delivery Method Room Air Weight: 68.5 kg Body Mass Index (BMI) 25.1 Intake & Output: Intake and Output for Last 24 Hours 04/21/24 04/21/24 04/22/24 00:59 23:59 23:59 Intake Total 2160 / 2160 4999.17 / 4999.17 1137.5 / 1137.5 Output Total 100 / 160 1185 / 1185 925 / 925 Balance 2059 / 1999 3814.17 / 3814.17 212.5 / 212.5 Lab / Micro Data 04/21/24 04:30 04/22/24 04:38 Labs: Laboratory Results - last 24 hr 04/21/24 21:24: POC Glucose 91 04/22/24 03:37: POC Glucose 105 04/22/24 04:38: Sodium 143, Potassium 2.9 L, Chloride 113 H, Carbon Dioxide 21.2, Anion Gap 9, BUN 23 H, Creatinine 0.91, Estim Creat Clear Calc 55.94, Est GFR (MDRD) Non-Af 68, BUN/Creatinine Ratio 25.6 H, Glucose 120 H, Calcium 8.2 04/22/24 08:38: POC Glucose 105 04/22/24 14:40: POC Glucose 159 H 04/22/24 16:56: POC Glucose 145 H Micro: Microbiology 04/20/24 15:30 Urine, Catheterized Urine Culture - Preliminary 04/20/24 21:27 Nasal Secretion MRSA (PCR) - Final 04/20/24 15:30 Mucosa - Nose SARS-CoV-2, Influenza & RSV (PCR) - Final Physical Exam Narrative alert and no apparent distress Constitutional Narrative: Patient is oriented as to person and place General Appearance: cooperative and well developed Orientation / Consciousness: awake HEENT normocephalic, head/scalp atraumatic and moist oral mucous membranes Eyes PERRL, EOMs intact bilaterally and conjunctivae normal Neck supple, no JVD, thyroid normal and no carotid bruits General: trachea midline Resp normal respiratory effort, no retractions, no use of accessory muscles and clear to auscultation bilaterally Auscultation: Negative for rales, rhonchi or wheezes Cardio regular rate, regular rhythm, S1 normal heart sound, S2 normal heart sound, no murmurs, no rub and no gallops GI normal to inspection, nondistended, normoactive bowel sounds, soft to palpation, non-tender and non-distended Extremity no clubbing, cyanosis or edema Skin no rashes or lesions noted General Skin Exam: no breakdown Neuro CN's II-XII intact bilaterally and no focal motor deficits Neuro Narrative: Patient is oriented as to person and place Sensorium / Orientation: awake and alert Psych Psych Narrative: Patient is oriented as to person and place Assessment & Plan Assessment/Plan (1) Altered level of consciousness: (2) High anion gap metabolic acidosis: PLAN: Plan 1. Metabolic encephalopathy secondary to acute kidney injury from dehydration on a backdrop of dementia-patient's mental status is improved today, she has been placed on oral intake today by speech therapy. #2 acute kidney injury-secondary to dehydration, patient's creatinine is improved, fluids will be discontinued today #3 dementia-complicates care, management, recovery, and prognosis #4 acute cystitis-continue IV Rocephin, await final urine culture, patient's preliminary culture shows no growth, I will transition patient over to oral antibiotics #5 depression/bipolar disorder-complicates care, management, recovery, and prognosis #6 hypokalemia-patient was given potassium supplementation, BMP will be rechecked tomorrow #7 long-term use of anticoagulants-it appears that the patient has been using Eliquis for an unknown length of time according to the , he thinks is due to her Takotsubo's cardiomyopathy. There is an entry regarding atrial fibrillation in her chart from 2022, I cannot find any EKGs which show atrial fibrillation. Patient had peptic ulcer disease in 2023, I think it would be good idea to discontinue her Eliquis at this time. I do not feel the patient is septic, I do not feel the patient has rhabdomyolysis I will review the patient's home medications and make adjustments I feel are appropriate. Total clinical time spent by myself addressing the patient's medical issues, reviewing all of her data, and collaborating with patient's care team: 35 minutes Charges/Coding Visit Charges Inpatient E&M: 15680 Subs Hosp L2
[2024-04-22] MEDS: Potassium Chloride Oral Tablet 20 MEQ PO ×2 (17:55→21:34)
[2024-04-22 21:00] VITALS: BP 162/78; PULSE 79; RESP 17; TEMP 37.1; O2SAT 100
[2024-04-22] MEDS: Pantoprazole Sodium 40 MG Tablet PO (21:34)
[2024-04-22] MEDS: Cephalexin 500 MG Capsule PO (21:35)
[2024-04-22] MEDS: Gabapentin 100 MG Capsule PO (21:35)
[2024-04-22] MEDS: Atorvastatin Calcium 20 MG Tablet PO (21:35)
[2024-04-22] MEDS: Fluoxetine HCl 40 MG CAPSULE PO (21:35)
[2024-04-22 23:58] LABS: Bedside Glucose 143 mg/dL (74-106)
[2024-04-23 02:52] VITALS: BP 170/82; PULSE 88; RESP 16; TEMP 36.7; O2SAT 96
[2024-04-23] MEDS: Cephalexin 500 MG Capsule PO ×3 (05:42→20:59)
[2024-04-23] MEDS: Gabapentin 100 MG Capsule PO ×3 (05:42→20:59)
[2024-04-23 05:43] VITALS: BMI 25.8
[2024-04-23 06:06] LABS: Anion Gap 9 (5-15); BUN 15 mg/dL (4-19); BUN/Creat Ratio 18.3 RATIO (10-20); Calcium,Total 8.7 mg/dL (7.6-11.0); Carbon Dioxide 23.1 mmol/L (21.0-32.0); Chloride 111 mmol/L (98-108); Creatinine, Serum 0.79 mg/dL (0.70-1.20); EST Glomerular Filtration Rate 80 (>60); Estimated Creatinine Clearance 64.42 ml/min (50-250); Glucose 112 mg/dL (70-99); Potassium 3.3 mmol/L (3.3-5.1); Sodium Level 144 mmol/L (133-145)
[2024-04-23 08:28] VITALS: BP 167/83; PULSE 84; RESP 16; TEMP 37.2; O2SAT 98
[2024-04-23 09:15] VITALS: O2SAT 98
[2024-04-23] MEDS: Tolterodine Tartrate 4 MG CAP.SA PO (10:20)
[2024-04-23] MEDS: Carvedilol 3.125 MG TABLET PO ×2 (10:21→15:35)
[2024-04-23] MEDS: Donepezil HCl 5 MG Tablet PO (10:21)
[2024-04-23] MEDS: Pantoprazole Sodium 40 MG Tablet PO ×2 (10:21→20:58)
[2024-04-23] MEDS: Fluoxetine HCl 40 MG CAPSULE PO ×2 (10:21→20:58)
[2024-04-23] MEDS: 0.9% Saline Lock 10 ML Syringe IV (10:27)
[2024-04-23 10:43] LABS: Absolute Lymphocyte Count 1.87 X10^3/uL (0.83-4.51); Absolute Neutrophil Count 5.6 X10^3/uL (2.0-7.7); Basophil# 0.01 X10^3/uL; Basophil% 0.1 % (0-1); Eosinophil# 0.15 X10^3/uL; Eosinophils% 1.8 % (0-5); Hematocrit 35.1 % (37-47); Hemoglobin 11.2 g/dL (12.0-15.0); Lymphocyte # 1.87 X10^3/ul (0.83-4.51); Mean Corp Hgb Conc 31.9 g/dL (32-36); Mean Corpuscular Hgb 29.1 pg (27.0-32.0); Mean Corpuscular Volume 91.2 fL (81-99); Monocyte% 6.2 % (0-10); NRBC Flagged by Analyzer 0 % (0-5); Neutrophil # 5.57 X10^3/uL (2.7-7.7); Neutrophil % 68.5 % (47-70); Platelet Count 176 K/mm3 (150-450); RBC Distribution Width CV 12.9 % (11.6-14.6); RBC Distribution Width SD 42.8 fl (35.1-43.9); Red Blood Count 3.85 M/mm3 (4.2-5.4); White Blood Count 8.1 K/mm3 (4.4-11.0)
[2024-04-23] MEDS: Insulin Lispro 100 UNIT/ML INSULN.PEN SC ×3 (12:19→20:58)
[2024-04-23 12:39] LABS: Bedside Glucose 153 mg/dL (74-106)
[2024-04-23 15:35] VITALS: BP 140/63; PULSE 83; RESP 16; TEMP 37; O2SAT 95
[2024-04-23] MEDS: Mag Hydrox/Al Hydrox/Simeth 30 ML UDC PO (15:42)
--- NOTE | 2024-04-23 15:45 | CASEMGMT ---
HAMILTON COSTA called and spoke to regarding discharge planning. Eduardo states he has concerns with patient coming home and states he is unable to care for patient. states that he prefers patient to go to [facility] as she enjoyed the therapy there last time she went. declined list. HAMILTON COSTA updated hospitalist and SW. CM will continue to follow this patient and plan for a safe discharge.
[2024-04-23 16:06] LABS: Bedside Glucose 157 mg/dL (74-106)
--- NOTE | 2024-04-23 16:22 | CASEMGMT ---
Social Work Per RNCM and Physician, pt and spouse agreeable to SNF placement at [facility]. Referral sent to the [facility]. SW will await determination of acceptance. CARMEN Riggins
--- NOTE | 2024-04-23 16:23 | PCM.PN.HOSP ---
Reason for Visit Reason for Visit: Diagnoses Sepsis, unspecified organism (04/20/24) Other acidosis (04/20/24) Urinary tract infection, site not specified (04/20/24) Transient alteration of awareness (04/20/24) Disorientation, unspecified (04/20/24) Subjective Subjective Patient was seen and examined today, she is alert and carries on a conversation, she appears appropriate. I talked to the patient's , he would like her to go to a intermediate facility for short-term rehab services, I discussed this with her and at first she did not agree with this but then seem to change her mind and agree for temporary placement at a intermediate facility. She told me to try [facility] which the told me she had been out before Objective Data Objective Data Vital Signs: Vital Signs Temp Pulse Resp BP Pulse Ox O2 Del Method O2 Flow Rate 98.6 F 83 16 140/63 H 95 Room Air 2 04/23/24 15:35 04/23/24 15:35 04/23/24 15:35 04/23/24 15:35 04/23/24 15:35 04/23/24 15:35 04/22/24 08:30 FiO2 30 04/21/24 06:00 Oxygen Flow Rate (L/min) 2 Oxygen Delivery Method Room Air Weight: 70.4 kg Body Mass Index (BMI) 25.8 Intake & Output: Intake and Output for Last 24 Hours 04/21/24 04/22/24 04/23/24 23:59 23:59 23:59 Intake Total 4999.17 / 4999.17 2137.5 / 2137.5 50 / 50 Output Total 1185 / 1185 925 / 925 1200 / 1200 Balance 3814.17 / 3814.17 1212.5 / 1212.5 -1150 / -1150 Lab / Micro Data 04/23/24 10:30 04/23/24 05:00 Labs: Laboratory Results - last 24 hr 04/22/24 16:56: POC Glucose 145 H 04/22/24 21:42: POC Glucose 143 H 04/23/24 05:00: Sodium 144, Potassium 3.3, Chloride 111 H, Carbon Dioxide 23.1, Anion Gap 9, BUN 15, Creatinine 0.79, Estim Creat Clear Calc 64.42, Est GFR (MDRD) Non-Af 80, BUN/Creatinine Ratio 18.3, Glucose 112 H, Calcium 8.7 04/23/24 10:30: WBC 8.1, RBC 3.85 L, Hgb 11.2 L, Hct 35.1 L, MCV 91.2, MCH 29.1, MCHC 31.9 L, RDW Std Deviation 42.8, RDW Coeff of Gerhard 12.9, Plt Count 176, MPV 10.0, Immature Gran % (Auto) 0.400, Neut % (Auto) 68.5, Lymph % (Auto) 23.0, [place] % (Auto) 6.2, Eos % (Auto) 1.8, Baso % (Auto) 0.1, Absolute Neuts (auto) 5.6, Absolute Lymphs (auto) 1.87, Nucleated RBC % 0 04/23/24 12:18: POC Glucose 153 H 04/23/24 15:31: POC Glucose 157 H Micro: Microbiology 04/20/24 17:12 Blood Culture (Wb) - Right Hand Blood Culture - Preliminary No growth in 48 hours. 04/20/24 15:44 Blood Culture (Wb) - Right Forearm Blood Culture - Preliminary No growth in 48 hours. 04/20/24 15:30 Urine, Catheterized Urine Culture - Preliminary Gram positive organism Gram positive organism#2 Gram positive organism#3 Gram positive organism#4 04/20/24 21:27 Nasal Secretion MRSA (PCR) - Final 04/20/24 15:30 Mucosa - Nose SARS-CoV-2, Influenza & RSV (PCR) - Final Physical Exam Const alert, oriented x3 and no apparent distress General Appearance: cooperative, well kempt and well developed Orientation / Consciousness: awake, oriented to person and oriented to place HEENT normocephalic, head/scalp atraumatic and moist oral mucous membranes Eyes PERRL, EOMs intact bilaterally and conjunctivae normal Neck supple, no JVD, thyroid normal and no carotid bruits General: trachea midline Resp normal respiratory effort, no retractions, no use of accessory muscles and clear to auscultation bilaterally Auscultation: Negative for rales, rhonchi or wheezes Cardio regular rate, regular rhythm, S1 normal heart sound, S2 normal heart sound, no murmurs, no rub and no gallops GI normal to inspection, nondistended, normoactive bowel sounds, soft to palpation, non-tender and non-distended Extremity no clubbing, cyanosis or edema Skin no rashes or lesions noted General Skin Exam: no breakdown Neuro CN's II-XII intact bilaterally, moves all extremities, no focal motor deficits and no sensory deficits noted Sensorium / Orientation: awake, alert, oriented to person and oriented to place Speech: speech normal Psych Psych Narrative: Patient is alert and carries on simple conversations with me appropriately. Assessment & Plan Assessment/Plan (1) Acute encephalopathy: (2) Altered level of consciousness: (3) High anion gap metabolic acidosis: PLAN: Plan 1. Metabolic encephalopathy secondary to acute kidney injury from dehydration on a backdrop of dementia-patient's mental status is improved today, again patient's wants her to go to an extended care facility for short-term rehab services, we will try to locate a bed for her at the [facility]. I did talk to the patient's personally by phone, he states that he does not feel he is able to take care of the patient at the present time and would like her to have short-term rehab services. #2 acute kidney injury-secondary to dehydration, patient's creatinine is improved #3 dementia-complicates care, management, recovery, and prognosis #4 acute cystitis-patient is currently on Keflex, preliminary urine culture showed several organisms-this is probably a contaminated specimen. I will have the patient finish out 7 days of antibiotics-this means Keflex will be discontinued on 04/27/2024. #5 depression/bipolar disorder-complicates care, management, recovery, and prognosis #6 hypokalemia-patient was given potassium supplementation, BMP will be rechecked tomorrow #7 long-term use of anticoagulants-I made the decision to stop the patient's Eliquis due to her past history of peptic ulcer disease and my inability to determine why she was placed on Eliquis initially I do not feel the patient is septic, I do not feel the patient has rhabdomyolysis I will review the patient's home medications and make adjustments I feel are appropriate. Total clinical time spent by myself addressing the patient's medical issues, reviewing all of her data, and collaborating with patient's care team: 35 minutes Charges/Coding Visit Charges Inpatient E&M: 68398 Subs Hosp L2
[2024-04-23] MEDS: Atorvastatin Calcium 20 MG Tablet PO (20:58)
[2024-04-23 21:01] VITALS: BP 128/68; PULSE 76; RESP 20; TEMP 36.9; O2SAT 99
[2024-04-23 21:25] LABS: Bedside Glucose 210 mg/dL (74-106)
[2024-04-24] VITALS (8 sets, daily range): BP systolic 131–159; BP diastolic 62–70; PULSE 72–83; RESP 16–20; TEMP 36.6–37.3; O2SAT 96–98; BMI 25.0
[2024-04-24] MEDS: Gabapentin 100 MG Capsule PO ×3 (06:05→20:34)
[2024-04-24] MEDS: Cephalexin 500 MG Capsule PO ×3 (06:20→20:34)
[2024-04-24 08:37] LABS: Bedside Glucose 142 mg/dL (74-106)
[2024-04-24] MEDS: Carvedilol 3.125 MG TABLET PO ×2 (08:55→17:11)
[2024-04-24] MEDS: Fluoxetine HCl 40 MG CAPSULE PO ×2 (09:00→20:34)
[2024-04-24] MEDS: Donepezil HCl 5 MG Tablet PO (09:00)
[2024-04-24] MEDS: Pantoprazole Sodium 40 MG Tablet PO ×2 (09:00→20:34)
[2024-04-24] MEDS: Tolterodine Tartrate 4 MG CAP.SA PO (09:00)
--- NOTE | 2024-04-24 09:42 | CASEMGMT ---
Social Work [facility] is able to accept pt. SW met with pt and introduced self and role of SW. SW spoke with pt regarding discharge plan. Pt is aware that her spouse does not think pt should return home and that spouse states he cannot care for pt at this time. Pt expressing frustration with spouse and SW provided support. Pt is agreeable to go to SNF short term. SW inquired about pt choice of SNF and pt does wish to go to [facility] as stated. SW informed pt that [facility] is able to accept her. Pt is agreeable to go to the [facility] at discharge. Precert will be needed prior to discharge. Precert to be started once therapy has seen pt this morning. Plan: [facility], pending precert CARMEN Riggins
[2024-04-24] MEDS: Insulin Lispro 100 UNIT/ML INSULN.PEN SC ×2 (11:32→16:53)
--- NOTE | 2024-04-24 11:40 | CASEMGMT ---
Social Work SW reviewed therapy notes and placed call to pt spouse Eduardo. SW updated Eduardo that pt is likely will not meet a skilled level of care under insurance criteria. Eduardo continues to state that pt is not safe to return home. Pt has had multiple falls, does not follow therapy recommendations and cannot get in the shower. SW discussed option of home with home health care and Eduardo states this has not been effective in the past and will not be effective this time as pt does not follow recommendations. Eduardo continues to feel pt is in need of nursing facility. DAVIS will request precert for intermediate level of care at the [facility]. Plan: [facility], pending precert for intermediate level of care CARMEN Riggins
--- NOTE | 2024-04-24 11:45 | CASEMGMT ---
Discharge Planning Updates sent to [facility] with note requesting precert be submitted for intermediate loc, not skilled. Anum Soler DC Planning Asst.
[2024-04-24 12:11] LABS: Bedside Glucose 171 mg/dL (74-106)
--- NOTE | 2024-04-24 12:51 | CASEMGMT ---
Social Work SW received call from pt's dgt and update provided on discharge plan. Pt dgt agreeable. [facility] states pt can admit today and precert will be obtained once pt is at the facility. PASRR complete in [facility]. Physician notified and pt is ready for dc today. DAVIS met with pt and informed that dc to [facility] will be today. Pt is agreeable to go to the [facility] at discharge. Plan: [facility], intermediate level of care, when medically ready CARMEN Riggins
[2024-04-24] MEDS: 0.9% Saline Lock 10 ML Syringe IV (12:54)
--- NOTE | 2024-04-24 14:18 | TREXTCAR_ITS ---
Diet Diet Order/Speech Therapy: 04/22/24 13:16 Diet: Carbohydrate Controlled Food consistency:: Soft & Bite Sized Liquid Consistency:: Regular/Thin Dietary Modifications:: Cardiac / Heart Healthy 1800-calorie ADA diet, soft and bite sized, liquid consistency regular/thin; cardiac/heart healthy is not necessary Routine Orders/Code Status Routine Lab Work: - (Fingerstick blood sugars AC nightly x 1 week) Code Status: Full Code DC O2, CPAP, BIPAP needs Home O2 Discharge instructions: No Wound(s) LEFT HIP: Wound Type: Abrasion BILATERAL ELBOWS: Wound Type: Abrasion NECK: Wound Type: Hematoma Therapies Weight Bearing: Full weight bearing Physical Therapy: Eval and Treat Occupational Therapy: Eval and Treat Problem/Diagnosis (1) Acute encephalopathy: Status: Acute Code(s): G93.40 - Encephalopathy, unspecified (2) Altered level of consciousness: Status: Acute Code(s): R40.4 - Transient alteration of awareness (3) High anion gap metabolic acidosis: Status: Acute Code(s): E87.29 - Other acidosis Plan 1. Metabolic encephalopathy secondary to acute kidney injury from dehydration on a backdrop of dementia-patient's mental status is improved today, again patient's wants her to go to an extended care facility for short-term rehab services, we will try to locate a bed for her at the [facility]. I did talk to the patient's personally by phone, he states that he does not feel he is able to take care of the patient at the present time and would like her to have short-term rehab services. #2 acute kidney injury-secondary to dehydration, patient's creatinine is imp roved #3 dementia-complicates care, management, recovery, and prognosis #4 acute cystitis-patient is currently on Keflex, preliminary urine culture showed several organisms-this is probably a contaminated specimen. I will have the patient finish out 7 days of antibiotics-this means Keflex will be discontinued on 04/27/2024. #5 depression/bipolar disorder-complicates care, management, recovery, and prognosis #6 hypokalemia-patient was given potassium supplementation, BMP will be rechecked tomorrow #7 long-term use of anticoagulants-I made the decision to stop the patient's Eliquis due to her past history of peptic ulcer disease and my inability to determine why she was placed on Eliquis initially #8 type 2 diabetes by history-patient is receiving sliding scale insulin based on fingerstick blood sugars I do not feel the patient is septic, I do not feel the patient has rhabdomyolysis I will review the patient's home medications and make adjustments I feel are appropriate. Total clinical time spent by myself addressing the patient's medical issues, reviewing all of her data, and collaborating with patient's care team: 35 minutes Allergies/Procedures Done in Hospital Allergies morphine Allergy (Mild, Verified 04/20/24 15:06) confusion codeine Allergy (Verified 04/20/24 15:06) Itching fentanyl Adverse Reaction (Verified 04/20/24 15:06) confusion confusion x3 days naproxen Adverse Reaction (Verified 02/13/24 16:26) Other makes me jittery Procedures: None Type of Care/Length of Stay Estimated LOS: More Than 30 Days Type of Care Needed: Intermediate Rehab Potential: Good Prognosis: Good Additional Orders/Day of Discharge H&P will serve as current which was dated: 04/20/24 Day of Discharge: 04/24/24 Dietary and Speech Recommendations Dietitian Recommendations/Changes: Continue Carb Controlled diet to help manage medical conditions. Discharge Plan Admission Admit Date/Time: 04/20/24 19:19 Primary Reason for Your Visit: Encephalopathy, urinary tract infection Attending Provider: Chencho Short Primary Care Provider: Rupal Boyer Consulting Providers: Kanwal Aguilar Discharge Orders/Prescriptions Prescriptions: New fluoxetine 40 mg Capsule 40 mg PO BID Qty: 0 0RF acetaminophen 325 mg Tablet 650 mg PO Q4H PRN PRN (Reason: Fever, pain 1-11/21) Qty: 0 0RF donepezil 5 mg Tablet 10 mg PO DAILY Qty: 0 0RF carvedilol 3.125 mg Tablet 3.125 mg PO BIDCM Qty: 0 0RF cephalexin 500 mg Capsule 500 mg PO Q8 Qty: 0 0RF Rx Instructions: Continue for a total of 10 more doses starting the evening of 04/24/2024, then discontinue- insulin lispro [Humalog KwikPen Insulin] 100 unit/mL Insulin Pen See Protocol subcut ACHS Qty: 0 0RF Protocol: 3. Sliding Scale Insulin Med Dosing Condition: 150-189 mg/dl = 1 unit Condition: 190-229 mg/dl = 2 units Condition: 230-269 mg/dl = 3 units Condition: 270-309 mg/dl = 4 units Condition: 310-349 mg/dl = 5 units Condition: 350-399 mg/dl = 6 units Condition: 400-449 mg/dl = 7 units Condition: Greater than 449 call physician Protocol Text: - Use for Total Daily Dose of Insulin 37-55 units - Obsese, infected, or steroid patients MEDIUM DOSING ALGORITHIM atorvastatin 20 mg Tablet 20 mg PO QHS Qty: 0 0RF tolterodine 4 mg Capsule,Extended Release 24hr 4 mg PO DAILY Qty: 0 0RF pantoprazole 40 mg Tablet,Delayed Release (Dr/Ec) 40 mg PO BID Qty: 0 0RF gabapentin 100 mg Capsule 100 mg PO TID Qty: 0 0RF Discontinued fluoxetine 40 MG capsule 40 mg PO BID simvastatin 40 mg tablet 40 mg PO QHS gabapentin 100 mg capsule 100 mg PO TID carvedilol 3.125 mg Tablet 3.125 mg PO BID 30 Days Qty: 60 0RF pantoprazole [Protonix] 40 mg tablet,delayed release (DR/EC) 40 mg PO BID 30 Days Qty: 60 1RF donepezil [Aricept] 5 mg tablet 5 mg PO DAILY oxybutynin chloride 15 mg tablet extended release 24hr 30 mg PO DAILY Patient Comments: [NO ORIGINAL SIG] No Action buspirone 7.5 MG tablet 22.5 mg PO BID Eliquis 2.5 mg tablet 2.5 mg PO BID glipizide 10 mg tablet 10 mg PO DAILY fexofenadine 180 mg tablet 180 mg PO DAILY ergocalciferol (vitamin D2) [Vitamin D2] 1,250 mcg (50,000 unit) capsule 1,250 mcg PO .COMPLEX Patient Comments: [NO ORIGINAL SIG] Rx Instructions: 1,250 mcg orally every other week on sunday; Referrals / Follow Up: Rupal Boyer NP-C [Primary Care Provider] - Disposition Disposition (needs filled in before D/C Order can be placed): NonSkilled NH/Intermed Care
--- NOTE | 2024-04-24 14:38 | DS.PCM_ITS ---
Providers Date of Admission: 04/20/24 Date of Discharge: 04/24/24 Primary Care Physician: ORESTES Cano Consultations 04/20/24 21:16 Consult: [employer] Developer / Pulmonary Medicine Routine Consulting Provider: Intensivists/Pulmonary Med Reason for Consult: Sepsis, UTI, Enceph, DURAN, mild Rhabdo EMERGENT Consult: No MD Notified: Yes Date Notified: 04/20/24 Time Notified: 22:54 Method of Notification: Text Reason For Visit: SEPSIS UTI DURAN ENCEPHALOPATHY Diagnosis Discharge Diagnosis (1) Acute encephalopathy: Status: Acute Code(s): G93.40 - Encephalopathy, unspecified (2) Altered level of consciousness: Status: Acute Code(s): R40.4 - Transient alteration of awareness (3) High anion gap metabolic acidosis: Status: Acute Code(s): E87.29 - Other acidosis Plan 1. Metabolic encephalopathy secondary to acute kidney injury from dehydration on a backdrop of dementia-patient's mental status is improved today, again patient's wants her to go to an extended care facility for short-term rehab services, we will try to locate a bed for her at the [facility]. I did talk to the patient's personally by phone, he states that he does not feel he is able to take care of the patient at the present time and would like her to have short-term rehab services. #2 acute kidney injury-secondary to dehydration, patient's creatinine is improved #3 dementia-complicates care, management, recovery, and prognosis #4 acute cystitis-patient is currently on Keflex, preliminary urine culture showed several organisms-this is probably a contaminated specimen. I will have the patient finish out 7 days of antibiotics-this means Keflex will be discontinued on 04/27/2024. #5 depression/bipolar disorder-complicates care, management, recovery, and prognosis #6 hypokalemia-patient was given potassium supplementation, BMP will be rechecked tomorrow #7 long-term use of anticoagulants-I made the decision to stop the patient's Eliquis due to her past history of peptic ulcer disease and my inability to determine why she was placed on Eliquis initially #8 type 2 diabetes by history-patient is receiving sliding scale insulin based on fingerstick blood sugars I do not feel the patient is septic, I do not feel the patient has rhabdomyolysis I will review the patient's home medications and make adjustments I feel are appropriate. Total clinical time spent by myself addressing the patient's medical issues, reviewing all of her data, and collaborating with patient's care team: 35 minutes Medications at Discharge Home Medications buspirone 7.5 mg tablet 22.5 mg PO BID anxiety 01/06/18 apixaban 2.5 mg tablet (Eliquis) 2.5 mg PO BID blood thinner 02/14/24 ergocalciferol (vitamin D2) 1,250 mcg (50,000 unit) capsule (Vitamin D2) 1,250 mcg PO .COMPLEX 04/20/24 fexofenadine 180 mg tablet 180 mg PO DAILY 04/20/24 glipizide 10 mg tablet 10 mg PO DAILY 04/20/24 acetaminophen 325 mg tablet 650 mg (2 x 325 mg) PO Q4H PRN PRN Fever, pain 1- 11/21 #0 tabs 04/24/24 atorvastatin 20 mg tablet 20 mg PO QHS #0 tabs 04/24/24 carvedilol 3.125 mg tablet 3.125 mg PO BIDCM #0 tabs 04/24/24 cephalexin 500 mg capsule 500 mg PO Q8 #0 caps 04/24/24 donepezil 5 mg tablet 10 mg (2 x 5 mg) PO DAILY #0 tabs 04/24/24 fluoxetine 40 mg capsule 40 mg PO BID #0 caps 04/24/24 gabapentin 100 mg capsule 100 mg PO TID #0 caps 04/24/24 insulin lispro 100 unit/mL subcutaneous pen (Humalog KwikPen (U-100) Insulin) See Protocol subcut ACHS #0 mL 04/24/24 pantoprazole 40 mg tablet,delayed release 40 mg PO BID #0 tabs 04/24/24 tolterodine 4 mg capsule,extended release 24 hr 4 mg PO DAILY #0 caps 04/24/24 Hospital Course Operations None Procedures None Summary of Care Provided Minutes Spent on Discharge: 32 Hospital Course: This 68-year-old white female was seen in the emergency room at [facility] after being brought in by squad due to altered mental status at home. Patient's stated the patient has been confused for several days and he was concerned about a UTI. Labs obtained in the emergency room showed an elevated white blood cell count of 25, hemoglobin was 17.1, BUN was 47 and creatinine was 1.57. Lactic acid was elevated at 3. UA showed 10-25 WBCs and +[address] showed no acute finding, chest CT showed no evidence of pneumonia. Patient was admitted to ICU for acute kidney injury, metabolic encephalopathy, and acute sepsis secondary to UTI. Patient was given IV antibiotics and fluids, this examiner did not feel the patient was septic however. Patient was seen in consultation by critical care and her mentation improved. Patient was seen by PT and OT, patient's requested the patient go to a residential facility for short-term rehab services, patient reluctantly agreed. On 04/24/2024, patient was seen and examined: On examination she appeared in good health and spirits, she does not appear to be in any distress. Vital signs as documented. Skin warm and dry and without overt rashes. Neck without JVD, thyroid appears normal, trachea is midline, neck is supple. Lungs clear, normal air movement was noted. Heart exam notable for regular rhythm, normal sounds and absence of murmurs, rubs or gallops. Abdomen unremarkable and without evidence of organomegaly, masses, or abdominal aortic enlargement, bowel sounds are present in all 4 quadrants, no abdominal tenderness was noted. Extremities nonedematous, no cyanosis was noted, no clubbing was noted. Neuro: Cranial nerves II through XII are grossly intact, no focal motor deficits were noted, sensation to light touch and pinprick is intact, motor exam 5/5 throughout. Psych: Patient is alert and oriented x3, she does not appear anxious or depressed, she does not appear agitated. Patient was discharged to an extended care facility in stable condition for short-term rehab services on 04/24/2024. Weight / BMI Weight Weight: 68.1 kg Body Mass Index (BMI) 25.0 ABG / Lab / Microbiology Data 04/23/24 10:30 04/23/24 05:00 Laboratory: Laboratory Results - last 24 hr 04/23/24 20:57: POC Glucose 210 H 04/24/24 08:16: POC Glucose 142 H 04/24/24 11:27: POC Glucose 171 H 04/24/24 16:51: POC Glucose 159 H Microbiology: Microbiology 04/20/24 15:30 Urine, Catheterized Urine Culture - Final Enterococcus faecalis Staphylococcus simulans Staphylococcus aureus 04/20/24 17:12 Blood Culture (Wb) - Right Hand Blood Culture - Preliminary No growth in 48 hours. 04/20/24 15:44 Blood Culture (Wb) - Right Forearm Blood Culture - Preliminary No growth in 48 hours. 04/20/24 21:27 Nasal Secretion MRSA (PCR) - Final 04/20/24 15:30 Mucosa - Nose SARS-CoV-2, Influenza & RSV (PCR) - Final D/C Instructions DC O2, CPAP, BIPAP Needs PSN CPAP & BiPAP: BiPAP & CPAP Settings per PSN Mode AVAPS 04/21/24 03:50 Bipap Delivery Device Face Mask 04/21/24 03:50 BiPAP Inspiratory Pressure 12 04/21/24 03:45 BiPAP Expiratory Pressure 8 04/21/24 03:50 BiPAP Rate 14 04/21/24 03:50 Fraction of Inspired Oxygen ( 30 04/21/24 06:00 FIO2) Home O2 Discharge instructions: No Meaningful Use Info Meaningful Use Meaningful Use Diagnoses (Choose all that apply): None applicable Ischemic Stroke Statin Dosing Therapy Reference: STATIN DOSE THERAPY REFERENCE: * Patients > 75 years receive moderate or high dose statin therapy. * Patients 75 years or YOUNGER should receive HIGH intensity statin dose unless contraindicated. You will be required to document reason for non-treatment if statin daily dose does not meet guidelines. HIGH DOSE STATIN THERAPY DAILY Atorvastatin > than or = to 40 mg Rosuvastatin > than or = to 20 mg Amlodipine + Atorvastatin > than or = to 2.5/40 mg Ezetimibe + Simvastatin 10/80 mg Simvastatin 80mg Discharge Plan Admission Admit Date/Time: 04/20/24 19:19 Primary Reason for Your Visit: Encephalopathy, urinary tract infection Attending Provider: Chencho Short Primary Care Provider: Rupal Boyer Consulting Providers: Kanwal Aguilar Discharge Orders/Prescriptions Prescriptions: New fluoxetine 40 mg Capsule 40 mg PO BID Qty: 0 0RF acetaminophen 325 mg Tablet 650 mg PO Q4H PRN PRN (Reason: Fever, pain 1-11/21) Qty: 0 0RF donepezil 5 mg Tablet 10 mg PO DAILY Qty: 0 0RF carvedilol 3.125 mg Tablet 3.125 mg PO BIDCM Qty: 0 0RF cephalexin 500 mg Capsule 500 mg PO Q8 Qty: 0 0RF Rx Instructions: Continue for a total of 10 more doses starting the evening of 04/24/2024, then discontinue- insulin lispro [Humalog KwikPen Insulin] 100 unit/mL Insulin Pen See Protocol subcut ACHS Qty: 0 0RF Protocol: 3. Sliding Scale Insulin Med Dosing Condition: 150-189 mg/dl = 1 unit Condition: 190-229 mg/dl = 2 units Condition: 230-269 mg/dl = 3 units Condition: 270-309 mg/dl = 4 units Condition: 310-349 mg/dl = 5 units Condition: 350-399 mg/dl = 6 units Condition: 400-449 mg/dl = 7 units Condition: Greater than 449 call physician Protocol Text: - Use for Total Daily Dose of Insulin 37-55 units - Obsese, infected, or steroid patients MEDIUM DOSING ALGORITHIM atorvastatin 20 mg Tablet 20 mg PO QHS Qty: 0 0RF tolterodine 4 mg Capsule,Extended Release 24hr 4 mg PO DAILY Qty: 0 0RF pantoprazole 40 mg Tablet,Delayed Release (Dr/Ec) 40 mg PO BID Qty: 0 0RF gabapentin 100 mg Capsule 100 mg PO TID Qty: 0 0RF Discontinued fluoxetine 40 MG capsule 40 mg PO BID simvastatin 40 mg tablet 40 mg PO QHS gabapentin 100 mg capsule 100 mg PO TID carvedilol 3.125 mg Tablet 3.125 mg PO BID 30 Days Qty: 60 0RF pantoprazole [Protonix] 40 mg tablet,delayed release (DR/EC) 40 mg PO BID 30 Days Qty: 60 1RF donepezil [Aricept] 5 mg tablet 5 mg PO DAILY oxybutynin chloride 15 mg tablet extended release 24hr 30 mg PO DAILY Patient Comments: [NO ORIGINAL SIG] No Action buspirone 7.5 MG tablet 22.5 mg PO BID Eliquis 2.5 mg tablet 2.5 mg PO BID glipizide 10 mg tablet 10 mg PO DAILY fexofenadine 180 mg tablet 180 mg PO DAILY ergocalciferol (vitamin D2) [Vitamin D2] 1,250 mcg (50,000 unit) capsule 1,250 mcg PO .COMPLEX Patient Comments: [NO ORIGINAL SIG] Rx Instructions: 1,250 mcg orally every other week on sunday; Referrals / Follow Up: Rupal Boyer, CRISTOPHER-C [Primary Care Provider] - Disposition Disposition (needs filled in before D/C Order can be placed): NonSkilled NH/Intermed Care Charges/Coding Visit Charges Inpatient E&M: 50417 Disch Hosp >30min
--- NOTE | 2024-04-24 16:01 | CASEMGMT ---
Social Work Per physician pt is ready for discharge today. Transportation arranged with [facility] for 6:30 roll picker via wheelchair. Discharge orders sent to [facility] via [facility]. SW placed phone call to pt and updated on discharge plan and he is agreeable to this. SW met with pt and informed of roll picker time, pt agreeable to discharge plan to [facility]. Nursing notified. Disposition: [place], intermediate level of care CARMEN Riggins
[2024-04-24 18:16] LABS: Bedside Glucose 159 mg/dL (74-106)
--- NOTE | 2024-04-24 19:31 | NURSING ---
[facility] scheduled time of pickup is 1829. At the time of this charting, they have not arrived. In discussion with other RN's and Dr. Davis it was decided to relocate this patient to [facility] and await transport arrival.
[2024-04-24] MEDS: Atorvastatin Calcium 20 MG Tablet PO (20:34)
[2024-04-24 20:39] LABS: Bedside Glucose 176 mg/dL (74-106)
--- NOTE | 2024-04-24 20:46 | NURSING ---
Report given to [facility]. Pt loaded onto cot with belongings.
--- NOTE | 2024-04-25 09:22 | CASEMGMT ---
Social Work Discharge information faxed to [facility] general farm manager Radha Gupta. SW requested be pt assessed for the assisted living waiver program. CARMEN Riggins
== END 2024-04-24 20:52 | disposition intermediate care facility (04) | DRG 682 ==
LOC: ED 19:39 → ICU 21:57 → MS2 04-24 06:43
PROVIDERS: Emergency Medicine; Internal Medicine Critical Care Medicine; Physician Assistant; Admitting Provider Family Medicine; Emergency Provider Emergency Medicine; PCP Nurse Practitioner Family; Visit Provider Internal Medicine
DX: N17.9 Acute kidney failure, unspecified (principal); G93.41 Metabolic encephalopathy; N28.0 Ischemia and infarction of kidney; E87.29 Other acidosis; I51.81 Takotsubo syndrome; F03.94 Unspecified dementia, unspecified severity, with anxiety; F03.93 Unspecified dementia, unspecified severity, with mood disturbance; N30.00 Acute cystitis without hematuria; B37.2 Candidiasis of skin and nail; E11.22 Type 2 diabetes mellitus with diabetic chronic kidney disease; I48.0 Paroxysmal atrial fibrillation; L40.50 Arthropathic psoriasis, unspecified; I12.9 Hypertensive chronic kidney disease with stage 1 through stage 4 chronic kidney disease, or unspecified chronic kidney disease; E86.0 Dehydration; E11.65 Type 2 diabetes mellitus with hyperglycemia; E78.00 Pure hypercholesterolemia, unspecified; N18.2 Chronic kidney disease, stage 2 (mild); I25.2 Old myocardial infarction; K21.9 Gastro-esophageal reflux disease without esophagitis; I25.10 Atherosclerotic heart disease of native coronary artery without angina pectoris; G43.709 Chronic migraine without aura, not intractable, without status migrainosus; W19.XXXA Unspecified fall, initial encounter; G47.33 Obstructive sleep apnea (adult) (pediatric); E87.6 Hypokalemia; Z79.01 Long term (current) use of anticoagulants; Z79.84 Long term (current) use of oral 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 drugs; Z91.81 History of falling; Z79.899 Other long term (current) drug therapy; Z87.891 Personal history of nicotine dependence; Z87.440 Personal history of urinary (tract) infections; Z87.19 Personal history of other diseases of the digestive system; Z87.11 Personal history of peptic ulcer disease; Z96.643 Presence of artificial hip joint, bilateral
CPT/HCPCS: 36415; 36569; 36600; 51702; 70450; 71250; 72125; 72170; 74176; 80048; 80053; 81001; 82010; 82550; 82803; 82962; 83605; 83735; 84100; 85025; 85610; 85730; 87040; 87077; 87086; 87088; 87186; 87631; 87641; 92526; 92610; 93005; 93306; 94002; 94668; 94762; 97116; 97162; 97166; 97530; 97535; 97802; 97803; 99285; A4216; J0696; J2405

== ENCOUNTER 2024-05-13 15:43 | Inpatient (IN) | payer MEDICARE, MEDICAID, SELFPAY ==
[2024-05-13 15:45] VITALS: BP 209/95; PULSE 100; RESP 25; TEMP 36.4; O2SAT 96; BMI 25.6
--- NOTE | 2024-05-13 16:22 | ED.VIS.FALL ---
HPI HPI - Fall History of Present Illness Chief Complaint: Fall Narrative Narrative: 68-year-old female past medical history of chronic bilateral hip pain as well as chronic low back pain presents status post fall. She states that she was in her bathroom and had a mechanical fall. She went to turn, and fell. She denies hitting her head or loss of consciousness. She sustained a skin tear to her right forearm. Her main concern is that she is having low back pain as well as low back spasms. She states that she tried taking oxycodone in the past, but could only take 2 tablets. She only takes Tylenol for pain now. No loss of bowel or bladder, no other injuries. She states that the pain in her low back is causing her anxiety as well. [facility] Medical History Sepsis High anion gap metabolic acidosis Acute kidney injury Candidal intertrigo Acute UTI Recurrent falls Acute delirium Altered level of consciousness Acute encephalopathy Myocardial infarction type 2 Non-ST elevation [place] (NSTEMI) Hiatal hernia Irritable bowel Back pain due to injury Restless legs Injury of head and neck High cholesterol Hearing loss, right Bipolar disorder Depression Anxiety GERD (gastroesophageal reflux disease) Former smoker Sleep apnea Atrial fibrillation Migraines Dementia Closed intertrochanteric fracture of left hip Psoriatic arthritis Nonobstructive atherosclerosis of coronary artery Obesity Type 2 diabetes mellitus Takotsubo syndrome Hyperlipidemia Essential (primary) hypertension NSTEMI (non-ST elevated myocardial infarction) (01/06/18) Home Medications ?Medication ?Instructions ?Recorded ?Last Taken ?Type apixaban 2.5 mg tablet (Eliquis) 2.5 mg PO BID blood thinner 02/14/24 Unknown History ergocalciferol (vitamin D2) 1,250 1,250 mcg PO SA 04/20/24 05/10/24 History mcg (50,000 unit) capsule (Vitamin D2) fexofenadine 180 mg tablet 180 mg PO DAILY 04/20/24 Unknown History glipizide 10 mg tablet 10 mg PO DAILY 04/20/24 Unknown History atorvastatin 20 mg tablet 20 mg PO QHS #0 tabs 04/24/24 05/12/24 Rx carvedilol 3.125 mg tablet 3.125 mg PO BIDCM #0 tabs 04/24/24 05/13/24 Rx fluoxetine 40 mg capsule 40 mg PO BID #0 caps 04/24/24 Unknown Rx gabapentin 100 mg capsule 100 mg PO TID #0 caps 04/24/24 Unknown Rx pantoprazole 40 mg tablet,delayed 40 mg PO BID #0 tabs 04/24/24 Unknown Rx release tolterodine 4 mg capsule,extended 4 mg PO DAILY #0 caps 04/24/24 Unknown Rx release 24 hr acetaminophen 325 mg tablet 650 mg PO Q4H PRN Fever, pain 05/13/24 05/12/24 History 1-11/21 buspirone 15 mg tablet 15 mg PO BID 05/13/24 Unknown History donepezil 10 mg tablet 10 mg PO DAILY 05/13/24 Unknown History mirabegron 50 mg tablet,extended 50 mg PO DAILY 05/13/24 Unknown History release 24 hr Allergy/AdvReac Type Severity Reaction Status Date / Time morphine Allergy Mild confusion Verified 05/13/24 15:44 codeine Allergy Itching Verified 05/13/24 15:44 fentanyl AdvReac confusion Verified 05/13/24 15:44 naproxen AdvReac Other Verified 05/13/24 15:44 Family History Mother Cancer skin Father Cancer prostate Surgical History History of back surgery History of carpal tunnel release of both wrists History of hysterectomy History of left heart catheterization (01/07/18) Social History household members: spouse Smoking Status: Former smoker how long ago did patient quit smokin years ago alcohol intake: never substance use type: does not use caffeine: Yes Type: carbonated beverages Number of servings: 1 ROS ROS ED ROS Narrative Review of systems positive for low back pain with muscle spasms. She has chronic bilateral hip pain. No hitting of head or loss of consciousness. No prodromal chest pain or shortness of breath. Has skin tear on right forearm but denies any pain. EXAM Physical Exam Narrative Exam Narrative: GCS 15. ABCs intact. Examination of the back is limited secondary to muscle spasms. Cardiovascular examination reveals a regular rate and rhythm. Lungs are clear to auscultation bilaterally. The abdomen is soft and nontender with normal active bowel sounds. Pelvis stable. She has full range of motion of her bilateral upper extremities and able to flex and extend at the bilateral hips and knees. Skin examination does show skin tear on the right forearm without active bleeding. There is approximately 2-1/2 cm. Const Vital Signs: 05/13/24 15:45 05/13/24 15:50 05/13/24 18:04 Temperature 97.5 F L Temperature Source Oral Pulse Rate 100 115 H Respiratory Rate 25 H 20 H Respiratory Effort Normal Respiratory Depth Normal Respiratory Pattern Normal Blood Pressure 209/95 H 224/101 H Blood Pressure Mean 133 142 Pulse Ox 96 100 Oxygen Delivery Method Room Air Room Air 05/13/24 20:00 Temperature Temperature Source Pulse Rate 134 H Respiratory Rate Respiratory Effort Respiratory Depth Respiratory Pattern Blood Pressure 215/172 H Blood Pressure Mean 186 Pulse Ox 96 Oxygen Delivery Method MDM MDM MDM Narrative Medical decision making narrative: No feel differential diagnosis is applicable. I do not feel that x-rays need to be obtained of the forearm as she is having no bony pain. She was given an Adacel/booster X intramuscular injection as she states her tetanus immunization is over 10 years old. In review of her problem list she had opioid withdrawal in the past and states she has allergies to morphine, codeine, fentanyl, and naproxen. Hence, for analgesia she was given a gram of Tylenol orally and for muscle spasm/anxiety she was given 4 mg of Valium orally. CT was obtained of the lumbar spine to rule out fracture versus lumbosacral strain. I reviewed the radiology report after reviewing the imaging of the CT of the lumbar spine. There is DJD but no evidence of an acute fracture. Additionally, patient had told the CT techs that she may have hit her head but was unsure. CT of the brain was obtained and I reviewed the radiology report and there is no evidence of an acute hemorrhage. Upon repeat examination, patient states that she is unable to ambulate in this continuing to have pain. They state that she was [facility] and just got out. Attempt was made at ambulation, but patient was unable to do so. She asked for additional pain medications so she was administered oxycodone 5 mg orally. As she is unable to ambulate I obtained laboratory work and reviewed it and she has a leukocytosis of 17.0 which I think is more nonspecific mainly because she has had elevated WBC count in the past, hemoglobin normal at 13.9 with hematocrit 41.4, platelet count 296. BUN of 17 and creatinine 1.13, glucose elevated at 177. Anion gap elevated at 21 but I do not think she has a diabetic ketoacidosis. I think is secondary to a carbon dioxide of 13.8. Urinalysis negative for infection. I do not feel antibiotics are indicated. As she is unable to ambulate, I will discuss the patient with the hospitalist for at least observation and PT OT consult. Patient discussed with Dr. Kanwal Aguilar. She was assigned to observation on the general medical floor. She is in stable condition. History & Record Review Discussion w/independent historian: Patient and Family Lab Data Attestation: I reviewed the patient's lab results. Labs: Laboratory Results - last 24 hr 05/13/24 05/13/24 17:55 18:30 WBC 17.0 H RBC 4.78 Hgb 13.9 Hct 41.4 MCV 86.6 MCH 29.1 MCHC 33.6 RDW Std Deviation 41.1 RDW Coeff of Gerhard 13.2 Plt Count 296 MPV 9.4 Immature Gran % (Auto) 0.800 Neut % (Auto) 87.9 H Lymph % (Auto) 5.0 L Gem % (Auto) 6.1 Eos % (Auto) 0.1 Baso % (Auto) 0.1 Absolute Neuts (auto) 15.0 H Absolute Lymphs (auto) 0.85 Nucleated RBC % 0 Sodium 137 Potassium 3.8 Chloride 103 Carbon Dioxide 13.8 L Anion Gap 21 H BUN 17 Creatinine 1.13 Estim Creat Clear Calc 45.46 L Est GFR (MDRD) Non-Af 52 L BUN/Creatinine Ratio 14.7 Glucose 177 H Calcium 9.6 Urine Color Yellow Urine Clarity Clear Urine pH 6.0 Ur Specific Lissie 1.010 Urine Protein 100 H Urine Glucose (UA) 50 H Urine Ketones 15 H Urine Occult Blood 10 H Urine Nitrite Negative Urine Bilirubin Negative Urine Urobilinogen Normal Ur Leukocyte Esterase Negative Urine RBC 0 SEEN Urine WBC 0-5 SEEN Ur Squamous Epith Cells 0 SEEN Urine Bacteria 0 SEEN Urine Mucus 0 SEEN Radiography Diagnostic Testing: Clinical Impression(s) from Imaging Studies Brain CT 05/13/24 16:45 IMPRESSION: 1. No acute intracranial finding. 2. Stable findings of chronic microvascular ischemic changes and age-related changes. Reading Location: [facility] Lumbar Spine CT 05/13/24 16:45 IMPRESSION: No obvious acute fracture. Severe multilevel degenerative changes, unchanged. Reading Location: [facility] Discharge Plan Triage Chief Complaint: Fall ED Provider: Adria Montenegro Dx/Rx/DC Orders Clinical Impression: Fall, Intractable low back pain, Inability to walk Primary Care Provider: Rupal Boyer
[2024-05-13] MEDS: diazePAM 2 MG Tablet 4 MG PO (16:33)
[2024-05-13] MEDS: Acetaminophen 500 MG Tablet 1000 MG PO (16:33)
[2024-05-13] MEDS: Diphth,Pertuss(Acell),Tet Vac 0.5 ML Vial IM (16:33)
--- NOTE | 2024-05-13 16:45 | CT_ITS ---
EXAM: BRAIN/HEAD WITHOUT CONTRAST CLINICAL HISTORY: 68-year-old female, TRAUMA COMPARISON: CT head 04/20/2024. TECHNIQUE: Routine CT imaging of the head without IV contrast. Additional multiplanar reformats were obtained. Dose reduction techniques were used including intermediate exposure control (AEC),iterative reconstruction technique, and/or mA and/or KV dose adjustments based on patient's size. FINDINGS: Mild generalized cerebral and cerebellar volume loss with concordant prominence of the ventricles and subarachnoid spaces. Moderate patchy supratentorial white matter hypodensities. 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 The land-white matter interfaces are otherwise maintained. No acute intracranial hemorrhage or herniation. The basal cisterns are patent. Calcific plaque of the bilateral intracranial carotid arteries. Prior bilateral ocular lens replacements. The visualized paranasal sinuses and mastoids are unremarkable. The orbits, visualized paranasal sinuses and mastoids are unremarkable. No acute calvarial fracture or scalp hematoma. CT/Brain/Head without Contrast IMPRESSION: 1. No acute intracranial finding. 2. Stable findings of chronic microvascular ischemic changes and age-related ch anges. Reading Location: [id number]
--- NOTE | 2024-05-13 16:45 | CT_ITS ---
PROCEDURE: SPINE LUMBAR WITHOUT CONTRAST 05/13/2024 REASON FOR EXAM: 68-year-old female, TRAUMA TECHNIQUE: Lumbar spine CT without contrast. Coronal and Sagittal reconstruction series were provided. One or more dose reduction techniques were used (e.g., Automated exposure control, adjustment of the mA and/or kV according to patient size, use of iterative reconstruction technique COMPARISON: CT abdomen pelvis 04/20/2024. RADIATION DOSE SUMMARY: CTDlvol: 17 mGy DLP: 600 mGycm FINDINGS: Vertebrae: Prior cement augmentation of the L5 vertebral body. Severe multilevel chronic vertebral body compression deformities, greatest at L1 and L2. Severe diffuse osseous demineralization. Alignment: Severe chronic L1 and L2 vertebral body compression deformities with mild posterior retropulsion into the spinal canal resulting in moderate canal stenosis at these levels. No traumatic listhesis. Sacrum: Arthrosis of the bilateral SI joints. Partially visualized prior left total hip arthroplasty. Colonic diverticulosis. Calcific plaque of the aortoiliac vessels. CT/Spine Lumbar without Contrast IMPRESSION: No obvious acute fracture. Severe multilevel degenerative changes, unchanged. Reading Location: [id number]
[2024-05-13] MEDS: hydrALAZINE 20 MG/ML Vial 10 MG IV ×2 (18:02→22:44)
[2024-05-13 18:04] VITALS: BP 224/101; PULSE 115; RESP 20; O2SAT 100
[2024-05-13 18:12] LABS: Absolute Lymphocyte Count 0.85 X10^3/uL (0.83-4.51); Basophil# 0.02 X10^3/uL; Basophil% 0.1 % (0-1); Eosinophil# 0.01 X10^3/uL; Eosinophils% 0.1 % (0-5); Hematocrit 41.4 % (37-47); Hemoglobin 13.9 g/dL (12.0-15.0); Lymphocyte # 0.85 X10^3/ul (0.83-4.51); Mean Corp Hgb Conc 33.6 g/dL (32-36); Mean Corpuscular Hgb 29.1 pg (27.0-32.0); Mean Corpuscular Volume 86.6 fL (81-99); Mean Platelet Vol. 9.4 fl (6.2-12.0); Monocyte# 1.03 X10^3/uL; Monocyte% 6.1 % (0-10); NRBC Flagged by Analyzer 0 % (0-5); Neutrophil # 14.95 X10^3/uL (2.7-7.7); Neutrophil % 87.9 % (47-70); Platelet Count 296 K/mm3 (150-450); RBC Distribution Width CV 13.2 % (11.6-14.6); RBC Distribution Width SD 41.1 fl (35.1-43.9); Red Blood Count 4.78 M/mm3 (4.2-5.4)
[2024-05-13 18:41] LABS: Bacteria 0 SEEN /hpf (None Seen); Mucous, Urine 0 SEEN /hpf (<or=2+); Red Blood Cells-Urine 0 SEEN /hpf (0-5); Squamous Epithelial Cells - UA 0 SEEN /hpf (5-10)
[2024-05-13 18:43] LABS: Color, Urine Yellow (Yellow); Glucose, Dipstick 50 mg/dl (Normal); Ketone-Dipstick 15 mg/dl (Negative); Leukocyte Esterase-Dipstick Negative /ul (Negative); Nitrite-Dipstick Negative (Negative); Occult Blood-Urine 10 /ul (Negative); Protein-Dipstick 100 mg/dl (Negative); Urine Bilirubin Dipstick Negative (Negative); Urine Clarity Clear (Clear); Urine Urobilinogen Normal (Normal)
--- NOTE | 2024-05-13 18:57 | ED.RN ---
BROUGHT IN [facility] FROM HOME, IT WAS ORDERED BY PCP. THIS RN SENT DOWN URINE CUP TO LAB.
[2024-05-13] MEDS: oxyCODONE 5 MG Tablet PO (19:07)
[2024-05-13 19:26] LABS: Anion Gap 21 (5-15); BUN 17 mg/dL (4-19); BUN/Creat Ratio 14.7 RATIO (10-20); Calcium,Total 9.6 mg/dL (7.6-11.0); Carbon Dioxide 13.8 mmol/L (21.0-32.0); Chloride 103 mmol/L (98-108); Creatinine, Serum 1.13 mg/dL (0.70-1.20); EST Glomerular Filtration Rate 52 (>60); Estimated Creatinine Clearance 45.46 ml/min (50-250); Glucose 177 mg/dL (70-99); Potassium 3.8 mmol/L (3.3-5.1); Sodium Level 137 mmol/L (133-145)
[2024-05-13 19:30] LABS: White Blood Cells 0-5 SEEN /hpf (0-5)
[2024-05-13 20:00] VITALS: BP 215/172; PULSE 134; O2SAT 96
--- NOTE | 2024-05-13 21:26 | CM.ED ---
Social Work SW introduced self to patient and explained role in the hospital. Patient stated she had just been discharged from [facility] on May 09. Patient felt that she was doing well and declined HH when discharging, stating she had planned on riding her stationary bike to keep herself in shape. Patient reports to coming home to her house being a dirty and is unable to get to the exercise bike due to all the mess. Patient was in bathroom of her home this morning trying to reach some gloves and fell, hurting her back. Patient states she is unable to care for self at this time, feels she would not be able to bath herself and she states she is still wearing depends instead of using the bathroom as she cannot make it to the toilet on time. Patient states if she needs another SNF stay, she would like to go back to [facility]. Lucia Naik, DEVELOPMENT WRITER, BELT SPLICER
--- NOTE | 2024-05-13 21:36 | HP.PCM.HOS_ITS ---
HPI - General General Date of Admission: 05/13/24 Date of Service: 05/13/24 Chief Complaint: Fall, intractable back pain HPI Narrative The patient is a 68 y/o F w/ PMHx: HTN, HLD, Anxiety and Depression/Bipolar disorder, GERD, Former tobacco use, BURKE, Chronic migraines, PAF, Psoriatic arthritis, Dementia unclear type as well as unclear extent with unclear behavioral disturbance history, Nonobstructive CAD w/ Takotsubo syndrome with reduced EF of 20% 09/2023, Diabetes mellitus type II who presents to the [facility] ED on 05/13/24 with history of recently again being discharged from skilled facility at home with chronic instability and falls unfortunately her bathroom attempted to bend over with mechanical fall with no trauma specifically or loss of consciousness aside from a skin tear to the right forearm but since then persistent lumbar back pain with spasms but no specific radicular pains or shooting pains prompting family to bring her in for treatment. She did report that she took some old oxycodone and since then has been having some nausea. Workup in the ED included T97.5, heart rate 100, BP 209/95, respiratory rate 25, 96% on room air with most recent repeat assessment T97.2, heart rate 88, BP 214/114, respiratory rate 25, 95% on room air, CBC with WBC 17, hemoglobin 13.9, platelet 296 with left shift, BMP with carbon oxide 13.8, anion gap 21, BUN/creatinine 17/1.13, GFR 52, glucose 177, urinalysis with no obvious evidence of UTI, CT brain with no acute intracranial findings with stable chronic microvascular ischemic changes and age-related changes, CT lumbar spine with no obvious acute fracture, severe multilevel degenerative changes which are unchanged from previous. In the ED patient ministered oxycodone 5 mg p.o. x 1, hydralazine 10 mg IV x 1, Valium 4 mg p.o. x 1, Tylenol 1000 mg p.o. x 1 as well as tetanus update given small laceration upon her fall. FOR[facility]LY [facility] Medical History Sepsis High anion gap metabolic acidosis Acute kidney injury Candidal intertrigo Acute UTI Recurrent falls Acute delirium Altered level of consciousness Acute encephalopathy Myocardial infarction type 2 Non-ST elevation PR (NSTEMI) Hiatal hernia Irritable bowel Back pain due to injury Restless legs Injury of head and neck High cholesterol Hearing loss, right Bipolar disorder Depression Anxiety GERD (gastroesophageal reflux disease) Former smoker Sleep apnea Atrial fibrillation Migraines Dementia Closed intertrochanteric fracture of left hip Psoriatic arthritis Nonobstructive atherosclerosis of coronary artery Obesity Type 2 diabetes mellitus Takotsubo syndrome Hyperlipidemia Essential (primary) hypertension NSTEMI (non-ST elevated myocardial infarction) (01/06/18) Home Medications ?Medication ?Instructions ?Recorded ?Last Taken ?Type apixaban 2.5 mg tablet (Eliquis) 2.5 mg PO BID blood t hinner 02/14/24 Unknown History ergocalciferol (vitamin D2) 1,250 1,250 mcg PO SA 11/0605/10/24 History mcg (50,000 unit) capsule (Vitamin D2) fexofenadine 180 mg tablet 180 mg PO DAILY 04/20/24 Un known History glipizide 10 mg tablet 10 mg PO DAILY 04/20/24 Unkn own History atorvastatin 20 mg tablet 20 mg PO QHS #0 tabs 5 05/12/24 Rx carvedilol 3.125 mg tablet 3.125 mg PO BIDCM #0 tabs 0 04/24/24 05/13/24 Rx fluoxetine 40 mg capsule 40 mg PO BID #0 caps 5 Unknown Rx gabapentin 100 mg capsule 100 mg PO TID #0 caps Unknown Rx pantoprazole 40 mg tablet,delayed 40 mg PO BID #0 tabs 04/24/24 Unknown Rx release tolterodine 4 mg capsule,extended 4 mg PO DAILY #0 cap s 04/24/24 Unknown Rx release 24 hr acetaminophen 325 mg tablet 650 mg PO Q4H PRN Fever, p ain 05/13/24 05/12/24 History 1-11/21 buspirone 15 mg tablet 15 mg PO BID 05/13/24 Unknow n History donepezil 10 mg tablet 10 mg PO DAILY 05/13/24 Unkn own History mirabegron 50 mg tablet,extended 50 mg PO DAILY Unknown History release 24 hr Allergy/AdvReac Type Severity Reaction Status Date / Time morphine Allergy Mild confusion Verified 05/13/24 15:44 codeine Allergy Itching Verified 05/13/24 15:44 fentanyl AdvReac confusion Verified 05/13/24 15:44 naproxen AdvReac Other Verified 05/13/24 15:44 Family History Mother Cancer skin Father Cancer prostate Surgical History History of back surgery History of carpal tunnel release of both wrists History of hysterectomy History of left heart catheterization (01/07/18) Social History household members: spouse Smoking Status: Former smoker how long ago did patient quit smokin years ago alcohol intake: never substance use type: does not use caffeine: Yes Type: carbonated beverages Number of servings: 1 ROS ROS Narrative Admission Review of Systems: CONSTITUTIONAL: No weight loss, fever, chills, + weakness or fatigue. HEENT: Eyes: No visual loss, blurred vision, double vision or yellow sclerae. Ears, Nose, Throat: No hearing loss, sneezing, congestion, runny nose or sore throat. SKIN: No rash or itching, lesions, wounds. CARDIOVASCULAR: No chest pain, chest pressure or chest discomfort, palpitations, edema, orthopnea, syncopal events. RESPIRATORY: No shortness of breath, cough or sputum, wheezing, hemoptysis. GASTROINTESTINAL: + Complaining currently of some abdominal generalized discomfort, nausea, anorexia. No vomiting, diarrhea, abdominal pain, melena, BRBPR. GENITOURINARY: No dysuria, frequency, urgency or retention. NEUROLOGICAL: + Chronic underlying dementia, unclear specific extent, frequent falls. No headache, dizziness, syncope, paralysis, ataxia, numbness or tingling in the extremities, focal weakness, change in bowel or bladder control, seizure. MUSCULOSKELETAL: + muscle, back pain, joint pain or stiffness. HEMATOLOGIC: No anemia. + Easy bleeding/bruising. LYMPHATICS: No enlarged nodes. No history of splenectomy. PSYCHIATRIC: + History of anxiety and depression/bipolar disorder. ENDOCRINOLOGIC: No reports of sweating, cold or heat intolerance. No polyuria or polydipsia. ALLERGIES: No history of asthma, hives, eczema or rhinitis. Vital Signs Vital Signs Vital Signs: 05/13/24 15:45 05/13/24 15:50 05/13/24 18:04 Temperature 97.5 F L Temperature Source Oral Pulse Rate 100 115 H Respiratory Rate 25 H 20 H Respiratory Effort Normal Respiratory Depth Normal Respiratory Pattern Normal Blood Pressure 209/95 H 224/101 H Blood Pressure Mean 133 142 Pulse Ox 96 100 Oxygen Delivery Method Room Air Room Air 05/13/24 20:00 Temperature Temperature Source Pulse Rate 134 H Respiratory Rate Respiratory Effort Respiratory Depth Respiratory Pattern Blood Pressure 215/172 H Blood Pressure Mean 186 Pulse Ox 96 Oxygen Delivery Method Weight Weight: 154 lb 1.65 oz Body Mass Index (BMI) 25.6 Physical Exam Narrative Physical Examination: General: Awake, alert, oriented to self, place and some recent events but is not the best historian with underlying dementia, remains cooperative, laying in the ED bed, reporting pain 8 out of 10 in severity. Skin: Normal color, normal turgor, no icterus, no cyanosis except occasional stage ecchymoses, abrasions, recent fall with forearm small laceration. HEENT: AT/NC, EOMI, PERRLA, moderately dry MM, no carotid bruits or JVD noted. Lungs: Mildly diminished, greater bases, mildly increased respiratory rate but no distress, no rales, ronchi or wheezing. Heart: Regular rate and rhythm; no gallop, rub audible. Abdomen: Soft, mild generalized discomfort with no rebound or guarding, nondistended, mildly hyperactive BS, no appreciated HSM. Extremities: No cyanosis, clubbing, or edema. Neurological: Patient awake, alert, oriented as noted, cognitive function decreased baseline with underlying dementia, suspect likely near baseline intact currently; pupils equally reactive to light and accommodation, cranial nerves grossly normal, moving all 4 extremities, no focal deficits, strength severely globally decreased secondary to acute presentation with fall compounded by underlying chronic, but disease Psychiatric: Affect appears uncomfortable, fatigued, anxious, no acute evidence of depressive feelings but does have underlying history. Results Lab / Micro Data 05/13/24 17:55 05/13/24 17:55 Labs: Laboratory Results - last 24 hr 05/13/24 17:55: WBC 17.0 H, RBC 4.78, Hgb 13.9, Hct 41.4, MCV 86.6, MCH 29.1, MCHC 33.6, RDW Std Deviation 41.1, RDW Coeff of Gerhard 13.2, Plt Count 296, MPV 9.4, Immature Gran % (Auto) 0.800, Neut % (Auto) 87.9 H, Lymph % (Auto) 5.0 L, Wise % (Auto) 6.1, Eos % (Auto) 0.1, Baso % (Auto) 0.1, Absolute Neuts (auto) 15.0 H, Absolute Lymphs (auto) 0.85, Nucleated RBC % 0, Sodium 137, Potassium 3.8, Chloride 103, Carbon Dioxide 13.8 L, Anion Gap 21 H, BUN 17, Creatinine 1.13, Estim Creat Clear Calc 45.46 L, Est GFR (MDRD) Non-Af 52 L, BUN/Creatinine Ratio 14.7, Glucose 177 H, Calcium 9.6 05/13/24 18:30: Urine Color Yellow, Urine Clarity Clear, Urine pH 6.0, Ur Specific [place] 1.010, Urine Protein 100 H, Urine Glucose (UA) 50 H, Urine Ketones 15 H, Urine Occult Blood 10 H, Urine Nitrite Negative, Urine Bilirubin Negative, Urine Urobilinogen Normal, Ur Leukocyte Esterase Negative, Urine RBC 0 SEEN, Urine WBC 0-5 SEEN, Ur Squamous Epith Cells 0 SEEN, Urine Bacteria 0 SEEN, Urine Mucus 0 SEEN Imaging Radiology Impression Brain CT 05/13/24 16:45 IMPRESSION: 1. No acute intracranial finding. 2. Stable findings of chronic microvascular ischemic changes and age-related changes. Reading Location: [facility] Lumbar Spine CT 05/13/24 16:45 IMPRESSION: No obvious acute fracture. Severe multilevel degenerative changes, unchanged. Reading Location: [facility] Assessment & Plan Assessment/Plan (1) Intractable low back pain: (2) Fall: PLAN: Plan The patient is a 68 y/o F w/ PMHx: HTN, HLD, Anxiety and Depression/Bipolar disorder, GERD, Former tobacco use, BURKE, Chronic migraines, PAF, Psoriatic arthritis, Dementia unclear type as well as unclear extent with unclear behavioral disturbance history, Nonobstructive CAD w/ Takotsubo syndrome with reduced EF of 20% 09/2023, Diabetes mellitus type II who presents to the [facility] ED on 05/13/24 with history of recently again being discharged from skilled facility at home with chronic instability and falls unfortunately her bathroom attempted to bend over with mechanical fall with no trauma specifically or loss of consciousness aside from a skin tear to the right forearm but since then persistent lumbar back pain with spasms but no specific radicular pains or shooting pains prompting family to bring her in for treatment. #1. Mechanical fall with Acute on Chronic Intractable Back Pain: Will admit to PCU given BP in the ED elevated likely with pain and also significant nausea following recent narcotics in case of regimen needs per discussion with supervising nurse, will maintain on fall precautions, frequent positioning, initiate IV judicious short course toradol, lidocaine patches, tizanidine x 1 scheduled dose now and as needed follow, increase her gabapentin to 200 mg p.o. 3 times daily and may further adjust as needed, hold off on further narcotic therapies she has significant issues with that she notes, anti-emetics, bowel regimen. Will consult PT and OT for evaluation as well as Case management for discharge planning. #2. Leukocytosis, unclear etiology: Urinalysis not marked appearing, CBC with notable WBC elevation with left shift, possibly could be component of dehydration, will very judiciously hydrate, repeat CBC in a.m., procalcitonin requested. #3. Chronic Kidney Disease Stage II per GFR trend however has vacillated: Admission BUN/Cr 17/1.13, GFR 52, baseline renal function primarily 0.7-0.9, repeat BMP in AM. #4. Known right renal artery obstruction: Continued on Eliquis, statin, hypertensive regimen with adjustments as needed. #5. Hypertension: Will continue home regimen including Coreg with adjustments as needed, PRN IV hydralazine. #6. Hyperlipidemia: Continue home statin therapy. #7. Anxiety and depression/bipolar disorder: Continue home BuSpar and fluoxetine home regimen. #8. PAF: Continue home Eliquis and Coreg regimen. #9. Dementia, unclear type with unclear behavioral disturbance history: Complicates presentation, continue home Aricept regimen, will maintain on fall and aspiration precautions, PT/OT/case management consulted for discharge planning. #10. Former tobacco use: Encourage continued tobacco cessation. #11. BURKE: BiPAP nightly. #12. DVT prophylaxis: Continue home Eliquis regimen. #13. CODE status: Patient HCPOA and living will are not in place but her is her medical decision-maker if necessary. Full Code based on recent admission discussions. Charges/Coding Visit Charges Inpatient E&M: 92656 Init Hosp L2
[2024-05-13 22:00] VITALS: BP 214/114; PULSE 88; RESP 25; TEMP 36.2; O2SAT 95
[2024-05-13 23:20] VITALS: BMI 25.2
[2024-05-13 23:39] LABS: Procalcitonin 0.08 ng/mL (<=0.10)
[2024-05-13 23:59] VITALS: BP 179/100; PULSE 132; RESP 18; TEMP 36.8; O2SAT 98
[2024-05-14] VITALS (7 sets, daily range): BP systolic 100–124; BP diastolic 56–75; PULSE 92–126; RESP 16–18; TEMP 36.6–37.1; O2SAT 94–98; BMI 25.2
[2024-05-14] MEDS: 0.9% Normal Saline (1000mL) 1,000 ML 100 ML IV
[2024-05-14] MEDS: tiZANidine HCl 2 MG Tablet 4 MG PO (00:01)
[2024-05-14] MEDS: Insulin Lispro 100 UNIT/ML INSULN.PEN SC ×4 (00:01→17:14)
[2024-05-14] MEDS: 0.9% Saline Lock 10 ML Syringe IV ×2 (00:01→06:20)
[2024-05-14] MEDS: Pantoprazole Sodium 40 MG Tablet PO ×3 (00:02→20:35)
[2024-05-14] MEDS: busPIRone 15 MG TABLET PO ×3 (00:02→20:35)
[2024-05-14] MEDS: APIXABAN 2.5 MG TABLET (WCH) PO ×3 (00:02→20:35)
[2024-05-14] MEDS: Atorvastatin Calcium 20 MG Tablet PO ×2 (00:02→20:34)
[2024-05-14] MEDS: Gabapentin 100 MG Capsule 200 MG PO ×4 (00:02→20:34)
[2024-05-14] MEDS: Lidocaine 5% Patch 2 PATCH TOPICAL ×2 (00:06→09:23)
[2024-05-14] MEDS: Ketorolac 15 MG/ML Vial IV ×2 (00:12→06:19)
[2024-05-14 00:41] LABS: Bedside Glucose 350 mg/dL (74-106)
[2024-05-14] MEDS: Acetaminophen 325 MG Tablet 650 MG PO ×3 (02:32→20:35)
[2024-05-14 06:19] LABS: Absolute Neutrophil Count 12.3 X10^3/uL (2.0-7.7); Basophil# 0.02 X10^3/uL; Basophil% 0.1 % (0-1); Eosinophil# 0.02 X10^3/uL; Eosinophils% 0.1 % (0-5); Hematocrit 39.9 % (37-47); Lymphocyte % 8.3 % (19-41); Mean Corp Hgb Conc 32.6 g/dL (32-36); Mean Corpuscular Hgb 28.7 pg (27.0-32.0); Mean Corpuscular Volume 88.1 fL (81-99); Mean Platelet Vol. 9.6 fl (6.2-12.0); Monocyte# 0.93 X10^3/uL; Monocyte% 6.4 % (0-10); NRBC Flagged by Analyzer 0 % (0-5); Neutrophil # 12.26 X10^3/uL (2.7-7.7); Neutrophil % 84.6 % (47-70); Platelet Count 286 K/mm3 (150-450); RBC Distribution Width CV 13.5 % (11.6-14.6); RBC Distribution Width SD 43.6 fl (35.1-43.9); Red Blood Count 4.53 M/mm3 (4.2-5.4); White Blood Count 14.5 K/mm3 (4.4-11.0)
[2024-05-14 06:35] LABS: ALB/GLOB Ratio 1.4 RATIO (0.9-2.4); AST(SGOT) 21 U/L (<=31); Alanine Aminotransfer ALT/SGPT 10 U/L (<=34); Albumin, Serum 3.7 g/dL (3.4-4.8); Alkaline Phosphatase 100 U/L (35-104); Anion Gap 15 (5-15); BUN 23 mg/dL (4-19); BUN/Creat Ratio 12.7 RATIO (10-20); Calcium,Total 8.8 mg/dL (7.6-11.0); Carbon Dioxide 16.4 mmol/L (21.0-32.0); Chloride 103 mmol/L (98-108); Creatinine, Serum 1.79 mg/dL (0.70-1.20); EST Glomerular Filtration Rate 30 (>60); Estimated Creatinine Clearance 26.43 ml/min (50-250); Globulin 2.8 g/dL (2.2-4.2); Glucose 267 mg/dL (70-99); Potassium 3.6 mmol/L (3.3-5.1); Protein, Total 6.5 g/dL (5.9-8.4); Sodium Level 134 mmol/L (133-145); Total Bilirubin 0.62 mg/dL (0.00-1.30)
[2024-05-14 06:45] LABS: Bedside Glucose 254 mg/dL (74-106)
[2024-05-14] MEDS: Carvedilol 3.125 MG TABLET PO ×2 (09:22→17:15)
[2024-05-14] MEDS: Vibegron 75 MG TABLET PO (09:23)
[2024-05-14] MEDS: Donepezil HCl 10 MG Tablet PO (09:23)
[2024-05-14] MEDS: Loratadine 10 MG Tablet PO (09:23)
--- NOTE | 2024-05-14 10:11 | PN.HOSP_ITS ---
Reason for Visit Reason for Visit: Diagnoses Other low back pain (05/13/24) Unspecified fall, initial encounter (05/13/24) Subjective Subjective Patient is a 68-year-old lady who presented to the emergency department following a fall with significant back pain imaging studies demonstrated no obvious fracture patient was however found to have severe multilevel degenerative changes admitted to regular nursing floor for pain management Objective Data Objective Data Vital Signs: Vital Signs Temp Pulse Resp BP Pulse Ox O2 Del Method 98.8 F 114 H 18 100/58 L 97 Room Air 05/14/24 04:31 05/14/24 04:31 05/14/24 04:31 05/14/24 04:31 05/14/24 08:25 05/14/24 10:00 Oxygen Delivery Method Room Air Weight: 64.5 kg Body Mass Index (BMI) 25.2 Intake & Output: Intake and Output for Last 24 Hours 05/12/24 05/13/24 05/14/24 23:59 23:59 23:59 Intake Total 1090 / 1090 Balance 1090 / 1090 Lab / Micro Data 05/14/24 05:44 05/14/24 05:44 Labs: Laboratory Results - last 24 hr 05/13/24 17:55: WBC 17.0 H, RBC 4.78, Hgb 13.9, Hct 41.4, MCV 86.6, MCH 29.1, MCHC 33.6, RDW Std Deviation 41.1, RDW Coeff of Gerhard 13.2, Plt Count 296, MPV 9.4, Immature Gran % (Auto) 0.800, Neut % (Auto) 87.9 H, Lymph % (Auto) 5.0 L, Luce % (Auto) 6.1, Eos % (Auto) 0.1, Baso % (Auto) 0.1, Absolute Neuts (auto) 15.0 H, Absolute Lymphs (auto) 0.85, Nucleated RBC % 0, Sodium 137, Potassium 3.8, Chloride 103, Carbon Dioxide 13.8 L, Anion Gap 21 H, BUN 17, Creatinine 1.13, Estim Creat Clear Calc 45.46 L, Est GFR (MDRD) Non-Af 52 L, BUN/Creatinine Ratio 14.7, Glucose 177 H, Calcium 9.6, Procalcitonin 0.08 05/13/24 18:30: Urine Color Yellow, Urine Clarity Clear, Urine pH 6.0, Ur Specific [place] 1.010, Urine Protein 100 H, Urine Glucose (UA) 50 H, Urine Ketones 15 H, Urine Occult Blood 10 H, Urine Nitrite Negative, Urine Bilirubin Negative, Urine Urobilinogen Normal, Ur Leukocyte Esterase Negative, Urine RBC 0 SEEN, Urine WBC 0-5 SEEN, Ur Squamous Epith Cells 0 SEEN, Urine Bacteria 0 SEEN, Urine Mucus 0 SEEN 05/13/24 23:30: POC Glucose 350 H 05/14/24 05:44: WBC 14.5 H, RBC 4.53, Hgb 13.0, Hct 39.9, MCV 88.1, MCH 28.7, MCHC 32.6, RDW Std Deviation 43.6, RDW Coeff of Gerhard 13.5, Plt Count 286, MPV 9.6, Immature Gran % (Auto) 0.500, Neut % (Auto) 84.6 H, Lymph % (Auto) 8.3 L, Luce % (Auto) 6.4, Eos % (Auto) 0.1, Baso % (Auto) 0.1, Absolute Neuts (auto) 12.3 H, Absolute Lymphs (auto) 1.20, Nucleated RBC % 0, Sodium 134, Potassium 3.6, Chloride 103, Carbon Dioxide 16.4 L, Anion Gap 15, BUN 23 H, Creatinine 1.79 H, Estim Creat Clear Calc 26.43 L, Est GFR (MDRD) Non-Af 30 L, BUN/Creatinine Ratio 12.7, Glucose 267 H, Calcium 8.8, Total Bilirubin 0.62, AST 21, ALT 10, Alkaline Phosphatase 100, Total Protein 6.5, Albumin 3.7, Globulin 2.8, Albumin/Globulin Ratio 1.4 05/14/24 06:23: POC Glucose 254 H Radiography Diagnostic Testing: Radiology Impression Brain CT 05/13/24 16:45 IMPRESSION: 1. No acute intracranial finding. 2. Stable findings of chronic microvascular ischemic changes and age-related changes. Reading Location: [facility] Lumbar Spine CT 05/13/24 16:45 IMPRESSION: No obvious acute fracture. Severe multilevel degenerative changes, unchanged. Reading Location: [facility] Physical Exam Narrative GENERAL: cooperative HEENT: Atraumatic; normocephalic EYES; Anicteric, Normal Conjunctiva NECK; supple, normal thyroid, RESPIRATORY: Diminished to auscultation CARDIOVASCULAR: Regular S1 S2, GI: soft, normoactive bowel sounds, : No Renal angle tenderness; EXTREMITIES: No edema, no clubbing, MUSCULOSKELETAL: no muscle wasting NEURO: Awake; no lateralizing signs. SKIN: No Rash PSYCH; Flat affect Assessment & Plan Assessment/Plan (1) Intractable low back pain: (2) Fall: PLAN: Plan Patient is a 68-year-old lady who presented to the emergency department following a fall with significant back pain imaging studies demonstrated no obvious fracture patient was however found to have severe multilevel degenerative changes admitted to regular nursing floor for pain management 1. Fall with intractable back pain - imaging studies demonstrated no obvious fracture patient was however found to have severe multilevel degenerative changes admitted to regular nursing floor for pain management 2. Physical deconditioning secondary to debility following the fall ? Requested for PT OT eval and adoption social worker to assist with discharge planning 3. Acute kidney injury ? Creatinine on admission was 1.13 patient kidney function did bump up to 1.7 started on IV fluid with avoidance of potential nephrotoxic medications. Ordered renal ultrasound as part of patient's evaluation 4. Dyslipidemia ?Patient is on statin therapy, continued at home dose 5. Hypertension ? Blood pressure controlled, home medications continued with dose adjustment as needed 6. History of peptic ulcer disease ?EGD performed on 01/04/2024 showed ulcers in the esophagus, duodenum, and gastric areas. Patient is on PPI 7. Diabetes mellitus type II -patient's oral 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s held. Placed on long acting insulin, Accu-Cheks a.c. and at bedtime and covered with sliding scale insulin 8. History of Takotsubo cardiomyopathy ? Remains stable 9. History of renal artery stenosis ? Remains stable 10. Paroxysmal atrial fibrillation ? Rate controlled on carvedilol and systemic anticoagulation with apixaban 11. Depression with anxiety ? Patient is on BuSpar as well as fluoxetine continue 12. Obstructive sleep apnea ? Consistent use of PAP therapy encouraged 13. DVT prophylaxis ? Patient is on apixaban Time spent in the patient's overall evaluation,decision-making process, review of diagnostic data, adjustment of management, discussion with other providers, nursing nursing and ancillary staff involved in patient's care documentation, 53 Minutes Charges/Coding Visit Charges Inpatient E&M: 13272 Subs Hosp L3
--- NOTE | 2024-05-14 10:13 | US_ITS ---
PROCEDURE: KIDNEY AND BLADDER 05/14/2024 REASON FOR EXAM: DURAN TECHNIQUE: Bilateral renal ultrasound. COMPARISON: Comparison is made with prior CT scan of the abdomen and pelvis dated April 20, 2024. FINDINGS: [place]: No hydronephrosis. Cysts or Masses: Bilateral renal cysts. Other: RIGHT Kidney Size: 8.4 cm x 4.7 cm x 5 cm 101 Volume: mL Cortical Thickness (if discernible): 8 mm (>6mm is normal) There is a 3.8 cm x 3.2 cm x 3 cm cyst in the midportion of the kidney. There is also evidence of a nonobstructive 2 mm x 2 mm x 2 mm renal calculus. LEFT Kidney Size: 9.8 cm x 4.4 cm x 5.1 cm Volume: 117 mL Cortical Thickness (if discernible): 9 mm (>6mm is normal) Urinary bladder volume is 133 mL. Normal wall thickness. US/Kidney and Bladder IMPRESSION: Bilateral renal cysts. A nonobstructive calculus in the right kidney. [facility]
--- NOTE | 2024-05-14 10:54 | CASEMGMT ---
Met with patient to complete ALVAREZ form. ALVAREZ form explained to patient who voiced understanding and signed form. Original form placed in pt?s chart and copy provided to patient. Anum Soler, Discharge Planning Asst
[2024-05-14] MEDS: 0.9% Normal Saline (1000mL) 1,000 ML 150 ML IV ×3 (11:22→23:16)
[2024-05-14 11:41] LABS: Bedside Glucose 225 mg/dL (74-106)
--- NOTE | 2024-05-14 15:26 | CASEMGMT ---
Addendum entered by Anum Soler 05/14/24 16:24: [facility] has accepted. [facility] has not been started. Anum Soler DC Planning Asst. Original Note: Discharge Planning Referral sent to [facility] [place]. Anum Soler DC Planning Asst.
--- NOTE | 2024-05-14 15:45 | NURSING ---
RN infused remainder of NS bag from fluids that were stopped this am. Hung first full bag of fluids at 15:15. MAR will be thrown off on times due to running remainder of the first bag before the first full bag. Pt will get a second full bag of 1000 ml and then a 3rd bag and only 600 ml will need to be run from that bag.
--- NOTE | 2024-05-14 17:07 | CASEMGMT ---
Social Work DAVIS met with pt who is known to this worker from previous visit. Pt was admitted to the [facility] on 04/25 and pt states she was discharged home from the [facility] on 05/09. PT readmitted to the hospital on 05/14. Pt states she was initially doing ok at home but then had a fall and needed to come back to the hospital. DAVIS spoke with pt regarding discharge options and pt is agreeable to return to the [facility]. DC assistant professor sculpture notified and referral to be sent. DAVIS called Radha Gupta, [facility] Home counter caser and notified of discharge from [facility], readmission to the hospital and plan to return to the [facility]. SW to notify Radha at time of discharge. Plan: [facility], pending acceptance and CARMEN Hernandez
[2024-05-14 17:48] LABS: Bedside Glucose 204 mg/dL (74-106)
[2024-05-14] MEDS: tiZANidine HCl 2 MG Tablet PO (20:34)
[2024-05-14] MEDS: MELATONIN 3 MG TABLET PO (20:35)
[2024-05-14 21:01] LABS: Bedside Glucose 131 mg/dL (74-106)
[2024-05-14] MEDS: Menthol/Lanolin/Calamine/Znox 113 GM Tube 1 APPLIC TOPICAL (23:16)
[2024-05-14] MEDS: Nystatin/Triamcin Cream Tube 1 APPLIC TOPICAL (23:16)
[2024-05-15] VITALS (8 sets, daily range): BP systolic 100–181; BP diastolic 48–71; PULSE 79–85; RESP 16; TEMP 36.7–37.3; O2SAT 94–99; BMI 29.0
[2024-05-15] MEDS: Acetaminophen 325 MG Tablet 650 MG PO ×4 (05:46→21:59)
[2024-05-15] MEDS: Gabapentin 100 MG Capsule 200 MG PO ×3 (05:46→21:59)
[2024-05-15] MEDS: tiZANidine HCl 2 MG Tablet PO ×2 (05:47→14:22)
[2024-05-15 05:54] LABS: Absolute Lymphocyte Count 2.98 X10^3/uL (0.83-4.51); Absolute Neutrophil Count 5.8 X10^3/uL (2.0-7.7); Basophil# 0.03 X10^3/uL; Basophil% 0.3 % (0-1); Eosinophil# 0.46 X10^3/uL; Eosinophils% 4.7 % (0-5); Hematocrit 29.6 % (37-47); Hemoglobin 9.6 g/dL (12.0-15.0); Lymphocyte # 2.98 X10^3/ul (0.83-4.51); Lymphocyte % 30.1 % (19-41); Mean Corp Hgb Conc 32.4 g/dL (32-36); Mean Corpuscular Volume 89.4 fL (81-99); Monocyte# 0.62 X10^3/uL; Monocyte% 6.3 % (0-10); NRBC Flagged by Analyzer 0 % (0-5); Neutrophil # 5.76 X10^3/uL (2.7-7.7); Neutrophil % 58.2 % (47-70); Platelet Count 168 K/mm3 (150-450); RBC Distribution Width CV 13.9 % (11.6-14.6); RBC Distribution Width SD 45.4 fl (35.1-43.9); Red Blood Count 3.31 M/mm3 (4.2-5.4); White Blood Count 9.9 K/mm3 (4.4-11.0)
[2024-05-15 06:23] LABS: Bedside Glucose 92 mg/dL (74-106)
[2024-05-15 06:42] LABS: Anion Gap 11 (5-15); BUN 29 mg/dL (4-19); BUN/Creat Ratio 15.8 RATIO (10-20); Calcium,Total 7.9 mg/dL (7.6-11.0); Carbon Dioxide 17.6 mmol/L (21.0-32.0); Chloride 108 mmol/L (98-108); Creatinine, Serum 1.84 mg/dL (0.70-1.20); EST Glomerular Filtration Rate 29 (>60); Estimated Creatinine Clearance 27.49 ml/min (50-250); Glucose 109 mg/dL (70-99); Magnesium 1.6 mg/dL (1.5-2.2); Phosphorus 3.6 mg/dL (2.7-4.5); Potassium 3.3 mmol/L (3.3-5.1); Sodium Level 137 mmol/L (133-145)
[2024-05-15] MEDS: Carvedilol 3.125 MG TABLET PO ×2 (08:25→16:27)
[2024-05-15] MEDS: Pantoprazole Sodium 40 MG Tablet PO ×2 (09:38→22:00)
[2024-05-15] MEDS: busPIRone 15 MG TABLET PO ×2 (09:38→22:00)
[2024-05-15] MEDS: APIXABAN 2.5 MG TABLET (WCH) PO ×2 (09:38→21:59)
[2024-05-15] MEDS: Donepezil HCl 10 MG Tablet PO (09:38)
[2024-05-15] MEDS: Loratadine 10 MG Tablet PO (09:38)
[2024-05-15] MEDS: Nystatin/Triamcin Cream Tube 1 APPLIC TOPICAL ×2 (09:39→22:00)
[2024-05-15] MEDS: Menthol/Lanolin/Calamine/Znox 113 GM Tube 1 APPLIC TOPICAL ×2 (09:39→21:59)
[2024-05-15] MEDS: Vibegron 75 MG TABLET PO (09:39)
[2024-05-15] MEDS: Lidocaine 5% Patch 2 PATCH TOPICAL (09:39)
--- NOTE | 2024-05-15 10:51 | PN.HOSP_ITS ---
Reason for Visit Reason for Visit: Diagnoses Other low back pain (05/14/24) Unspecified fall, initial encounter (05/14/24) Subjective Subjective Patient seen, patient kidney function did worsen. Renal ultrasound obtained the day prior demonstrated bilateral renal cyst and none obstructive calculus in the right kidney Objective Data Objective Data Vital Signs: Vital Signs Temp Pulse Resp BP Pulse Ox O2 Del Method 98.1 F 79 16 100/52 L 94 Room Air 05/15/24 10:00 05/15/24 10:00 05/15/24 10:00 05/15/24 10:00 05/15/24 10:00 05/15/24 10:00 Oxygen Delivery Method Room Air Weight: 74.4 kg Body Mass Index (BMI) 29.0 Intake & Output: Intake and Output for Last 24 Hours 05/13/24 05/14/24 05/15/24 23:59 23:59 23:59 Intake Total 3632.5 / 3632.5 1100 / 1100 Output Total 200 / 200 Balance 3632.5 / 3432.5 900 / 900 Lab / Micro Data 05/15/24 05:05 05/15/24 05:05 Labs: Laboratory Results - last 24 hr 05/14/24 11:19: POC Glucose 225 H 05/14/24 17:12: POC Glucose 204 H 05/14/24 20:25: POC Glucose 131 H 05/15/24 05:05: WBC 9.9, RBC 3.31 L, Hgb 9.6 L, Hct 29.6 L, MCV 89.4, MCH 29.0, MCHC 32.4, RDW Std Deviation 45.4 H, RDW Coeff of Gerhard 13.9, Plt Count 168, MPV 10.0, Immature Gran % (Auto) 0.400, Neut % (Auto) 58.2, Lymph % (Auto) 30.1, Bureau % (Auto) 6.3, Eos % (Auto) 4.7, Baso % (Auto) 0.3, Absolute Neuts (auto) 5.8, Absolute Lymphs (auto) 2.98, Nucleated RBC % 0, Sodium 137, Potassium 3.3, Chloride 108, Carbon Dioxide 17.6 L, Anion Gap 11, BUN 29 H, Creatinine 1.84 H, Estim Creat Clear Calc 27.49 L, Est GFR (MDRD) Non-Af 29 L, BUN/Creatinine Ratio 15.8, Glucose 109 H, Calcium 7.9, Phosphorus 3.6, Magnesium 1.6 05/15/24 05:52: POC Glucose 92 Radiography Diagnostic Testing: Radiology Impression Renal Ultrasound 05/14/24 10:13 IMPRESSION: Bilateral renal cysts. A nonobstructive calculus in the right kidney. Reading Location: [place] [id number] Physical Exam Narrative GENERAL: cooperative HEENT: Atraumatic; normocephalic EYES; Anicteric, Normal Conjunctiva NECK; supple, normal thyroid, RESPIRATORY: Diminished to auscultation CARDIOVASCULAR: Regular S1 S2, GI: soft, normoactive bowel sounds, : No Renal angle tenderness; EXTREMITIES: No edema, no clubbing, MUSCULOSKELETAL: no muscle wasting NEURO: Awake; no lateralizing signs. SKIN: No Rash PSYCH; Flat affect Assessment & Plan Assessment/Plan (1) Intractable low back pain: (2) Fall: PLAN: Plan Patient is a 68-year-old lady who presented to the emergency department following a fall with significant back pain imaging studies demonstrated no obvious fracture patient was however found to have severe multilevel degenerative changes admitted to regular nursing floor for pain management 1. Fall with intractable back pain - imaging studies demonstrated no obvious fracture patient was however found to have severe multilevel degenerative changes admitted to regular nursing floor for pain management 2. Physical deconditioning secondary to debility following the fall ? Requested for PT OT eval and clinical social worker to assist with discharge planning 3. Acute kidney injury ? Creatinine on admission was 1.13 patient kidney function did bump up to 1.7 started on IV fluid with avoidance of potential nephrotoxic medications. Ordered renal ultrasound as part of patient's evaluation ? 05/15/2024Patient seen, patient kidney function did worsen. Renal ultrasound obtained the day prior demonstrated bilateral renal cyst and none obstructive calculus in the right kidney. Review of patient kidney function over the past year shows intermittent DURAN's. Consult subsequently placed to nephrology. 4. Dyslipidemia ?Patient is on statin therapy, continued at home dose 5. Hypertension ? Blood pressure controlled, home medications continued with dose adjustment as needed 6. History of peptic ulcer disease ?EGD performed on 01/04/2024 showed ulcers in the esophagus, duodenum, and gastric areas. Patient is on PPI 7. Diabetes mellitus type II -patient's oral 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s held. Placed on long acting insulin, Accu-Cheks a.c. and at bedtime and covered with sliding scale insulin 8. History of Takotsubo cardiomyopathy ? Remains stable 9. History of renal artery stenosis ? Remains stable 10. Paroxysmal atrial fibrillation ? Rate controlled on carvedilol and systemic anticoagulation with apixaban 11. Depression with anxiety ? Patient is on BuSpar as well as fluoxetine continue 12. Obstructive sleep apnea ? Consistent use of PAP therapy encouraged 13. DVT prophylaxis ? Patient is on apixaban Time spent in the patient's overall evaluation,decision-making process, review of diagnostic data, adjustment of management, discussion with other providers, nursing nursing and ancillary staff involved in patient's care documentation, 40 minutes Charges/Coding Visit Charges Inpatient E&M: 22267 Subs Hosp L2
--- NOTE | 2024-05-15 10:59 | CASEMGMT ---
HAMILTON COSTA readmission note: Index admission: 04/20-04/24: Sepsis, UTI, DURAN, encephalopathy. Admitted from home. DC'd to [facility]. Pt then dc'd home from [place] [facility] on 05/09. Current admission: Admitted / w/fall, intractable back pain. Pt agreeable to return to [place] @ dc. See Mireya CANNON, notes. Ti YATES RN CM
--- NOTE | 2024-05-15 11:50 | PCM.CONS.R ---
Documented by User: ORESTES Jaffe 05/15/24 12:02 Assessment & Plan Assessment/Plan (1) DURAN (acute kidney injury): (2) Fall: PLAN: Plan This is a 68-year-old female with past medical history significant for hypertension, diabetes mellitus type 2 with presence of proteinuria, coronary disease who was brought to the emergency room for evaluation of fall. Patient was noted to be significantly hypertensive in the emergency room with systolic blood pressures as high as 220s but improved quickly with systolic blood pressure going in the low 100s. Baseline creatinine less than 1 mg/dL but patient does have episodes of DURAN. Patient has never required any CORPORATE PLANNING MANAGER. For this admission creatinine was 1.13 on May 13, yesterday creatinine 1.79 and today her creatinine is 1.84 mg/dL. Nonoliguric DURAN possibly from hemodynamics and fluctuating blood pressures with poor renal perfusion. Also to note patient was received Toradol for pain but this has been stopped; no recent LEYDI, ARB's or diuretics. Patient being started on IV fluids. Blood pressures have improved, she is not on any antihypertensives at this time. Renal ultrasound no hydronephrosis. UA 100 protein, negative RBC or leukocyte esterase, we will check urine protein creatinine ratio. labs ordered for morning. Further orders forthcoming as hospitalization evolves, thank you for letting us participate in the care of Ms. Benavidez. Assessment and plan reviewed with Dr. Carrillo. HPI Consult Data Date of Consult: 05/15/24 HPI Narrative HPI Narrative: LUBA BENAVIDEZ, is a 68 F with past medical history significant for hypertension, GERD, BURKE, anxiety and depression, bipolar disorder, migraines, dementia unclear type, coronary artery disease, diabetes mellitus type 2 with presence of proteinuria who presented to [place] emergency room on May 13 due to fall and intractable back pain. In emergency room patient was noted to be significantly hypertensive with systolic blood pressure going as high as 224. Patient was admitted for further evaluation and treatment. Nephrology consulted in view of elevated creatinine. Patient is known to our group from previous consultation in hospital in September 2023 for DURAN which was initially secondary to volume depletion with reduced renal perfusion then patient also had heart catheterization with exposure to IV contrast. Creatinine peaked to 1.4 and improved down to 1.0 by time of hospitalization. Patient is never required any CORPORATE PLANNING MANAGER. Currently patient denies any nausea or vomiting. Patient does not take NSAIDs. Per patient's daughter who is at bedside she feels patient's intake has been poor during this hospitalization. No hematuria PFSH Medical History (Updated 05/15/24 @ 11:54 by ORESTES Jaffe) DURAN (acute kidney injury) Sepsis High anion gap metabolic acidosis Acute kidney injury Candidal intertrigo Acute UTI Recurrent falls Acute delirium Altered level of consciousness Acute encephalopathy Myocardial infarction type 2 Non-ST elevation TN (NSTEMI) Hiatal hernia Irritable bowel Back pain due to injury Restless legs Injury of head and neck High cholesterol Hearing loss, right Bipolar disorder Depression Anxiety GERD (gastroesophageal reflux disease) Former smoker Sleep apnea Atrial fibrillation Migraines Dementia Closed intertrochanteric fracture of left hip Psoriatic arthritis Nonobstructive atherosclerosis of coronary artery Obesity Type 2 diabetes mellitus Takotsubo syndrome Hyperlipidemia Essential (primary) hypertension NSTEMI (non-ST elevated myocardial infarction) (01/06/18) Home Medications ?Medication ?Instructions ?Recorded ?Last Taken ?Type apixaban 2.5 mg tablet (Eliquis) 2.5 mg PO BID blood thinner 02/14/24 Unknown History ergocalciferol (vitamin D2) 1,250 1,250 mcg PO SA 04/20/24 05/10/24 History mcg (50,000 unit) capsule (Vitamin D2) fexofenadine 180 mg tablet 180 mg PO DAILY 04/20/24 Unknown History glipizide 10 mg tablet 10 mg PO DAILY 04/20/24 Unknown History atorvastatin 20 mg tablet 20 mg PO QHS #0 tabs 04/24/24 05/12/24 Rx carvedilol 3.125 mg tablet 3.125 mg PO BIDCM #0 tabs 04/24/24 05/13/24 Rx fluoxetine 40 mg capsule 40 mg PO BID #0 caps 04/24/24 Unknown Rx gabapentin 100 mg capsule 100 mg PO TID #0 caps 04/24/24 Unknown Rx pantoprazole 40 mg tablet,delayed 40 mg PO BID #0 tabs 04/24/24 Unknown Rx release tolterodine 4 mg capsule,extended 4 mg PO DAILY #0 caps 04/24/24 Unknown Rx release 24 hr acetaminophen 325 mg tablet 650 mg PO Q4H PRN Fever, pain 05/13/24 05/12/24 History -11/21 buspirone 15 mg tablet 15 mg PO BID 05/13/24 Unknown History donepezil 10 mg tablet 10 mg PO DAILY 05/13/24 Unknown History mirabegron 50 mg tablet,extended 50 mg PO DAILY 05/13/24 Unknown History release 24 hr Allergy/AdvReac Type Severity Reaction Status Date / Time morphine Allergy Mild confusion Verified 05/13/24 15:44 codeine Allergy Itching Verified 05/13/24 15:44 fentanyl AdvReac confusion Verified 05/13/24 15:44 naproxen AdvReac Other Verified 05/13/24 15:44 Family History Mother Cancer skin Father Cancer prostate Surgical History History of back surgery History of carpal tunnel release of both wrists History of hysterectomy History of left heart catheterization (01/07/18) Social History household members: spouse Smoking Status: Former smoker how long ago did patient quit smokin years ago alcohol intake: never substance use type: does not use caffeine: Yes Type: carbonated beverages Number of servings: 1 ROS ROS Narrative As in HPI Physical Exam Narrative Alert and orient x 3, no apparent distress S1, S2, RRR Lungs sound clear anteriorly and posteriorly. No wheezes, rhonchi or rales Abdomen soft, nontender No edema Lab / Micro Data 05/15/24 05:05 05/15/24 05:05 Labs: Laboratory Results - last 24 hr 05/14/24 17:12: POC Glucose 204 H 05/14/24 20:25: POC Glucose 131 H 05/15/24 05:05: WBC 9.9, RBC 3.31 L, Hgb 9.6 L, Hct 29.6 L, MCV 89.4, MCH 29.0, MCHC 32.4, RDW Std Deviation 45.4 H, RDW Coeff of Gerhard 13.9, Plt Count 168, MPV 10.0, Immature Gran % (Auto) 0.400, Neut % (Auto) 58.2, Lymph % (Auto) 30.1, [place] % (Auto) 6.3, Eos % (Auto) 4.7, Baso % (Auto) 0.3, Absolute Neuts (auto) 5.8, Absolute Lymphs (auto) 2.98, Nucleated RBC % 0, Sodium 137, Potassium 3.3, Chloride 108, Carbon Dioxide 17.6 L, Anion Gap 11, BUN 29 H, Creatinine 1.84 H, Estim Creat Clear Calc 27.49 L, Est GFR (MDRD) Non-Af 29 L, BUN/Creatinine Ratio 15.8, Glucose 109 H, Calcium 7.9, Phosphorus 3.6, Magnesium 1.6 05/15/24 05:52: POC Glucose 92 Imaging Radiology Impression Renal Ultrasound 05/14/24 10:13 IMPRESSION: Bilateral renal cysts. A nonobstructive calculus in the right kidney. Reading Location: [id number] Documented by User: Dr. Jameson Carrillo MD 05/15/24 21:15 Assessment & Plan Assessment/Plan (1) DURAN (acute kidney injury): (2) Fall: PLAN: Plan This is a 68-year-old female with past medical history significant for hypertension, diabetes mellitus type 2 with presence of proteinuria, coronary disease who was brought to the emergency room for evaluation of fall. Patient was noted to be significantly hypertensive in the emergency room with systolic blood pressures as high as 220s but improved quickly with systolic blood pressure going in the low 100s. Baseline creatinine less than 1 mg/dL but patient does have episodes of DURAN. Patient has never required any CORPORATE PLANNING MANAGER. For this admission creatinine was 1.13 on May 13, yesterday creatinine 1.79 and today her creatinine is 1.84 mg/dL. Nonoliguric DURAN possibly from hemodynamics and fluctuating blood pressures with poor renal perfusion. Also to note patient was received Toradol for pain but this has been stopped; no recent LEYDI, ARB's or diuretics. Patient being started on IV fluids. Blood pressures have improved, she is not on any antihypertensives at this time. Renal ultrasound no hydronephrosis. UA 100 protein, negative RBC or leukocyte esterase, we will check urine protein creatinine ratio. labs ordered for morning. Further orders forthcoming as hospitalization evolves, thank you for letting us participate in the care of Ms. Benavidez. Assessment and plan reviewed with Dr. Carrillo. addendum dw [facility] HPI Consult Data Date of Consult: 05/15/24 [facility] Medical History (Updated 05/15/24 @ 11:54 by Suma Robertson, CRISTOPHER-Madelyn) DURAN (acute kidney injury) Sepsis High anion gap metabolic acidosis Acute kidney injury Candidal intertrigo Acute UTI Recurrent falls Acute delirium Altered level of consciousness Acute encephalopathy Myocardial infarction type 2 Non-ST elevation TN (NSTEMI) Hiatal hernia Irritable bowel Back pain due to injury Restless legs Injury of head and neck High cholesterol Hearing loss, right Bipolar disorder Depression Anxiety GERD (gastroesophageal reflux disease) Former smoker Sleep apnea Atrial fibrillation Migraines Dementia Closed intertrochanteric fracture of left hip Psoriatic arthritis Nonobstructive atherosclerosis of coronary artery Obesity Type 2 diabetes mellitus Takotsubo syndrome Hyperlipidemia Essential (primary) hypertension NSTEMI (non-ST elevated myocardial infarction) (01/06/18) Home Medications ?Medication ?Instructions ?Recorded ?Last Taken ?Type apixaban 2.5 mg tablet (Eliquis) 2.5 mg PO BID blood thinner 02/14/24 Unknown History ergocalciferol (vitamin D2) 1,250 1,250 mcg PO SA 04/20/24 05/10/24 History mcg (50,000 unit) capsule (Vitamin D2) fexofenadine 180 mg tablet 180 mg PO DAILY 04/20/24 Unknown History glipizide 10 mg tablet 10 mg PO DAILY 04/20/24 Unknown History atorvastatin 20 mg tablet 20 mg PO QHS #0 tabs 04/24/24 05/12/24 Rx carvedilol 3.125 mg tablet 3.125 mg PO BIDCM #0 tabs 04/24/24 05/13/24 Rx fluoxetine 40 mg capsule 40 mg PO BID #0 caps 04/24/24 Unknown Rx gabapentin 100 mg capsule 100 mg PO TID #0 caps 04/24/24 Unknown Rx pantoprazole 40 mg tablet,delayed 40 mg PO BID #0 tabs 04/24/24 Unknown Rx release tolterodine 4 mg capsule,extended 4 mg PO DAILY #0 caps 04/24/24 Unknown Rx release 24 hr acetaminophen 325 mg tablet 650 mg PO Q4H PRN Fever, pain 05/13/24 05/12/24 History buspirone 15 mg tablet 15 mg PO BID 05/13/24 Unknown History donepezil 10 mg tablet 10 mg PO DAILY 05/13/24 Unknown History mirabegron 50 mg tablet,extended 50 mg PO DAILY 05/13/24 Unknown History release 24 hr Allergy/AdvReac Type Severity Reaction Status Date / Time morphine Allergy Mild confusion Verified 05/13/24 15:44 codeine Allergy Itching Verified 05/13/24 15:44 fentanyl AdvReac confusion Verified 05/13/24 15:44 naproxen AdvReac Other Verified 05/13/24 15:44 Family History Mother Cancer skin Father Cancer prostate Surgical History History of back surgery History of carpal tunnel release of both wrists History of hysterectomy History of left heart catheterization (01/07/18) Social History household members: spouse Smoking Status: Former smoker how long ago did patient quit smokin years ago alcohol intake: never substance use type: does not use caffeine: Yes Type: carbonated beverages Number of servings: 1 Lab / Micro Data 05/15/24 05:05 05/15/24 05:05
[2024-05-15] MEDS: 0.9% Normal Saline (1000mL) 1,000 ML 150 ML IV ×2 (12:02→21:58)
[2024-05-15] MEDS: Insulin Lispro 100 UNIT/ML INSULN.PEN SC ×2 (12:08→16:27)
--- NOTE | 2024-05-15 12:08 | CASEMGMT ---
Social Work [facility] is able to accept pt. SW requested precert to be started. DAVIS met with pt and pt's dgt Pam and notified of acceptance at [facility]. Both parties are agreeable. Plan: [facility], pending precert CARMEN Riggins
[2024-05-15 12:10] LABS: Bedside Glucose 156 mg/dL (74-106)
--- NOTE | 2024-05-15 12:15 | CASEMGMT ---
Updates sent to [facility] with request to submit precert. Anum Soler DC Planning Asst.
--- NOTE | 2024-05-15 14:07 | CASEMGMT ---
Addendum entered by Anum Soler 05/15/24 14:21: Auth is good thru 05/26/24. Anum Soler DC Planning Asst. Original Note: [facility] has obtained auth to admit. Bed will be available tomorrow. SW updated. Anum Soler DC Planning Asst.
--- NOTE | 2024-05-15 14:59 | CASEMGMT ---
HAMILTON COSTA note: Per registration, insurance coordination of benefits was not updated @ the beginning of the year. Registration has been in to talk with pt and state pt is currently talking w/her insurance co. Registration states, if pt has any insurance questions, to refer her to talk w/someone in their department (registration). Ti YATES RN CM
--- NOTE | 2024-05-15 15:24 | CHAPLAIN ---
Type of Pastoral Visit _x__ Initial Visit ___ Follow-up Visit ___ On-call Visit ___ General Patient Visit ___ Spiritual Assessment ___ Family Conference ___ Bereavement ___ Rapid Response ___ Code Blue ___ Other (describe below) Pastoral Care Referral From _x__ Patient ___ Family ___ Nurse ___ Physician ___ Wine Blender ___ Security Inspector ___ Other (describe below) Sacrament/Intervention _x__ Active listening ___ Anointing ___ Restorationism ___ Bereavement ___ Communion _x__ Adrianna exploration ___ _x__ Life review _x_ Prayer ___ Reconciliation ___ Sacrament of Sick _x__ Supportive presence ___ Wedding ___ Other (describe below) Pastoral Comments patient recognizes this jowl trimmer from previous admissions and starts to become animated and expressive of her new 'revelations' from God; pt speaks of seeing a vision or dream where she believes God spoke to her and gave her comfort for her life and purpose to live; pt expresses that this is a 'call to live' and to continue in the adrianna and serving God; pt speaks of her who has some differences of opinion with her; pt welcomes presence and prayer for hinduism conversation
[2024-05-15] MEDS: hydrOXYzine PAM 25 MG Capsule PO ×2 (16:34→23:06)
[2024-05-15 16:43] LABS: Bedside Glucose 158 mg/dL (74-106)
[2024-05-15] MEDS: Atorvastatin Calcium 20 MG Tablet PO (21:59)
[2024-05-15 22:42] LABS: Bedside Glucose 130 mg/dL (74-106)
[2024-05-15] MEDS: 0.9% Saline Lock 10 ML Syringe IV (23:06)
[2024-05-15] MEDS: hydrALAZINE 20 MG/ML Vial 10 MG IV (23:06)
[2024-05-16] VITALS (20 sets, daily range): BP systolic 145–220; BP diastolic 73–108; PULSE 89–116; RESP 16–20; TEMP 36.6–37.3; O2SAT 93–99; BMI 28.4
[2024-05-16] MEDS: tiZANidine HCl 2 MG Tablet PO ×2 (01:32→18:00)
[2024-05-16] MEDS: Morphine 2 MG/ML Syringe IV (02:38)
[2024-05-16] MEDS: 0.9% Saline Lock 10 ML Syringe IV ×5 (02:38→21:45)
[2024-05-16] MEDS: 0.9% Normal Saline (1000mL) 1,000 ML 150 ML IV (04:39)
[2024-05-16 05:59] LABS: Absolute Lymphocyte Count 2.22 X10^3/uL (0.83-4.51); Absolute Neutrophil Count 6.7 X10^3/uL (2.0-7.7); Basophil# 0.02 X10^3/uL; Basophil% 0.2 % (0-1); Eosinophil# 0.24 X10^3/uL; Eosinophils% 2.4 % (0-5); Hematocrit 30.3 % (37-47); Hemoglobin 9.8 g/dL (12.0-15.0); Lymphocyte # 2.22 X10^3/ul (0.83-4.51); Lymphocyte % 22.2 % (19-41); Mean Corp Hgb Conc 32.3 g/dL (32-36); Mean Corpuscular Hgb 29.2 pg (27.0-32.0); Mean Corpuscular Volume 90.2 fL (81-99); Mean Platelet Vol. 10.2 fl (6.2-12.0); NRBC Flagged by Analyzer 0 % (0-5); Neutrophil # 6.68 X10^3/uL (2.7-7.7); Neutrophil % 66.6 % (47-70); Platelet Count 179 K/mm3 (150-450); RBC Distribution Width CV 13.6 % (11.6-14.6); RBC Distribution Width SD 44.9 fl (35.1-43.9); Red Blood Count 3.36 M/mm3 (4.2-5.4)
[2024-05-16] MEDS: Acetaminophen 325 MG Tablet 650 MG PO ×3 (06:28→21:40)
[2024-05-16] MEDS: Gabapentin 100 MG Capsule 200 MG PO ×3 (06:28→21:35)
[2024-05-16 06:50] LABS: Bedside Glucose 128 mg/dL (74-106)
[2024-05-16 06:53] LABS: Anion Gap 11 (5-15); BUN 17 mg/dL (4-19); BUN/Creat Ratio 17.8 RATIO (10-20); Calcium,Total 8.1 mg/dL (7.6-11.0); Carbon Dioxide 17.8 mmol/L (21.0-32.0); Chloride 113 mmol/L (98-108); Creatinine, Serum 0.97 mg/dL (0.70-1.20); EST Glomerular Filtration Rate 63 (>60); Estimated Creatinine Clearance 51.63 ml/min (50-250); Glucose 145 mg/dL (70-99); Potassium 3.2 mmol/L (3.3-5.1); Sodium Level 141 mmol/L (133-145)
[2024-05-16] MEDS: Carvedilol 3.125 MG TABLET PO ×2 (08:37→16:28)
--- NOTE | 2024-05-16 09:03 | PCM.PN.REN ---
Subjective Subjective No complaints. No overnight events Objective Data Objective Data Vital Signs: Vital Signs Temp Pulse Resp BP Pulse Ox O2 Del Method 99 F 89 16 145/73 H 96 Room Air 05/16/24 08:31 05/16/24 08:31 05/16/24 08:31 05/16/24 08:31 05/16/24 08:31 05/16/24 08:31 Oxygen Delivery Method Room Air Weight: 72.9 kg Body Mass Index (BMI) 28.4 Intake & Output: Intake and Output for Last 24 Hours 05/14/24 05/15/24 05/16/24 23:59 23:59 23:59 Intake Total 3632.5 / 3632.5 2100 / 2100 1000 / 1000 Output Total 600 / 1300 1700 / 1700 Balance 3632.5 / 3432.5 1500 / 800 -700 / -700 Lab / Micro Data 05/16/24 05:10 05/16/24 05:10 Labs: Laboratory Results - last 24 hr 05/15/24 11:53: POC Glucose 156 H 05/15/24 16:25: POC Glucose 158 H 05/15/24 22:02: POC Glucose 130 H 05/16/24 05:10: WBC 10.0, RBC 3.36 L, Hgb 9.8 L, Hct 30.3 L, MCV 90.2, MCH 29.2, MCHC 32.3, RDW Std Deviation 44.9 H, RDW Coeff of Gerhard 13.6, Plt Count 179, MPV 10.2, Immature Gran % (Auto) 0.600, Neut % (Auto) 66.6, Lymph % (Auto) 22.2, Major % (Auto) 8.0, Eos % (Auto) 2.4, Baso % (Auto) 0.2, Absolute Neuts (auto) 6.7, Absolute Lymphs (auto) 2.22, Nucleated RBC % 0, Sodium 141, Potassium 3.2 L, Chloride 113 H, Carbon Dioxide 17.8 L, Anion Gap 11, BUN 17, Creatinine 0.97, Estim Creat Clear Calc 51.63, Est GFR (MDRD) Non-Af 63, BUN/Creatinine Ratio 17.8, Glucose 145 H, Calcium 8.1 05/16/24 06:28: POC Glucose 128 H Physical Exam Narrative Alert and orient x 3, no apparent distress S1, S2, RRR Lungs sound clear anteriorly and posteriorly. No wheezes, rhonchi or rales Abdomen soft, nontender No edema Assessment & Plan Assessment/Plan (1) DURAN (acute kidney injury): (2) Fall: PLAN: Plan This is a 68-year-old female with past medical history significant for hypertension, diabetes mellitus type 2 with presence of proteinuria, coronary disease who was brought to the emergency room for evaluation of fall. Patient was noted to be significantly hypertensive in the emergency room with systolic blood pressures as high as 220s but improved quickly with systolic blood pressure going in the low 100s. Baseline creatinine less than 1 mg/dL but patient does have episodes of DURAN. Patient has never required any CANDY DIPPER HAND. For this admission creatinine was 1.13 on May 13. - Nonoliguric DURAN possibly from hemodynamics and fluctuating blood pressures with poor renal perfusion. Also to note patient was received Toradol for pain but this has been stopped; no recent LEYDI, ARB's or diuretics. Patient being started on IV fluids. Blood pressures have improved, she is not on any antihypertensives at this time. Creatinine peaked 1.84 yesterday and today her creatinine is 0.97. With IV fluids alone renal function improved. K+ low, getting replacement today. Can decrease IV fluid rate. Renal ultrasound no hydronephrosis. UA 100 protein, negative RBC or leukocyte esterase. UPC pending. Assessment and plan reviewed with Dr. Carrillo.
--- NOTE | 2024-05-16 09:10 | PCM.TXEXTCAR ---
Diet Diet Order/Speech Therapy: 05/13/24 23:05 Diet: Consistent Carb - Calorie Controlled Food consistency:: Regular Liquid Consistency:: Regular/Thin How many daily calories?: 1800 calorie Routine Orders/Code Status Code Status: Full Code DC O2, CPAP, BIPAP needs Home O2 Discharge instructions: No Wound(s) Rt forearm: Wound Type: Skin Tear Lt forearm: Wound Type: few scratches Therapies Physical Therapy: Eval and Treat Occupational Therapy: Eval and Treat Problem/Diagnosis (1) DURAN (acute kidney injury): Status: Acute Code(s): N17.9 - Acute kidney failure, unspecified (2) Fall: Status: Acute Code(s): W19.XXXA - Unspecified fall, initial encounter Plan Patient is a 68-year-old lady who presented to the emergency department following a fall with significant back pain imaging studies demonstrated no obvious fracture patient was however found to have severe multilevel degenerative changes admitted to regular nursing floor for pain management 1. Fall with intractable back pain - imaging studies demonstrated no obvious fracture patient was however found to have severe multilevel degenerative changes admitted to regular nursing floor for pain management 2. Physical deconditioning secondary to debility following the fall ? Requested for PT OT eval and manager social responsibility to assist with discharge planning 3. Acute kidney injury ? Creatinine on admission was 1.13 patient kidney function did bump up to 1.7 started on IV fluid with avoidance of potential nephrotoxic medications. Ordered renal ultrasound as part of patient's evaluation ? 05/15/2024Patient seen, patient kidney function did worsen. Renal ultrasound obtained the day prior demonstrated bilateral renal cyst and none obstructive calculus in the right kidney. Review of patient kidney function over the past year shows intermittent DURAN's. Consult subsequently placed to nephrology. ? DURAN resolved at the time of the 4. Dyslipidemia ?Patient is on statin therapy, continued at home dose 5. Hypertension ? Blood pressure controlled, home medications continued with dose adjustment as needed 6. History of peptic ulcer disease ?EGD performed on 01/04/2024 showed ulcers in the esophagus, duodenum, and gastric areas. Patient is on PPI 7. Diabetes mellitus type II -patient's oral 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s held. Placed on long acting insulin, Accu-Cheks a.c. and at bedtime and covered with sliding scale insulin 8. History of Takotsubo cardiomyopathy ? Remains stable 9. History of renal artery stenosis ? Remains stable 10. Paroxysmal atrial fibrillation ? Rate controlled on carvedilol and systemic anticoagulation with apixaban 11. Depression with anxiety ? Patient is on BuSpar as well as fluoxetine continue 12. Obstructive sleep apnea ? Consistent use of PAP therapy encouraged 13. DVT prophylaxis ? Patient is on apixaban 14. Hypokalemia ? Corrected per protocol prescription written and Time spent in the patient's overall evaluation,decision-making process, review of diagnostic data, adjustment of management, discussion with other providers, nursing nursing and ancillary staff involved in patient's care documentation, 40 minutes Allergies/Procedures Done in Hospital Allergies morphine Allergy (Mild, Verified 05/13/24 15:44) confusion codeine Allergy (Verified 05/13/24 15:44) Itching fentanyl Adverse Reaction (Verified 05/13/24 15:44) confusion confusion x3 days naproxen Adverse Reaction (Verified 05/13/24 15:44) Other makes me jittery Type of Care/Length of Stay Estimated LOS: Convalescent Care Less Than 30 days Type of Care Needed: Skilled Rehab Potential: Good Prognosis: Good Additional Orders/Day of Discharge Day of Discharge: 05/16/24 Dietary and Speech Recommendations Dietitian Recommendations/Changes: Continue 1800CCD diet to manage blood sugars. No sugar free foods per pt request. Discharge Plan Admission Admit Date/Time: 05/14/24 11:43 Attending Provider: Coy Murcia Primary Care Provider: Rupal Boyer Consulting Providers: Kanwal Aguilar; Jameson Carrillo Discharge Orders/Prescriptions Prescriptions: New lidocaine 5 % Adhesive Patch,Medicated 2 patch topical DAILY Qty: 0 0RF Protocol: *Topical Application Instructions APPLICATION INSTRUCTIONS: back, s/p fall insulin lispro [Humalog KwikPen Insulin] 100 unit/mL Insulin Pen See Protocol subcut ACHS Qty: 0 0RF Protocol: 3. Sliding Scale Insulin Med Dosing Condition: 150-189 mg/dl = 1 unit Condition: 190-229 mg/dl = 2 units Condition: 230-269 mg/dl = 3 units Condition: 270-309 mg/dl = 4 units Condition: 310-349 mg/dl = 5 units Condition: 350-399 mg/dl = 6 units Condition: 400-449 mg/dl = 7 units Condition: Greater than 449 call physician Protocol Text: - Use for Total Daily Dose of Insulin 37-55 units - Obsese, infected, or steroid patients MEDIUM DOSING ALGORITHIM tizanidine 2 mg Tablet 2 mg PO Q8H PRN PRN (Reason: muscle spasms/strain) Qty: 0 0RF sennosides-docusate sodium [Stimulant Laxative Plus] 8.6-50 mg Tablet 2 tab PO BID PRN PRN (Reason: Constipation) Qty: 0 0RF melatonin 3 mg Tablet 3 mg PO QHS PRN PRN (Reason: Insomnia) Qty: 0 0RF potassium chloride 20 mEq Tablet,Er Particles/Crystals 20 meq PO BIDCM Qty: 0 0RF alum-mag hydroxide-simeth [Mag-Al Plus Extra Strength] 400-400-40 mg/5 mL Suspension 30 ml PO Q6H PRN PRN (Reason: Gastric Burning) Qty: 0 0RF hydroxyzine pamoate 25 mg Capsule 25 mg PO TID PRN PRN (Reason: severe anxiety) Qty: 0 0RF Remove Patch 2 patch topical DAILY@2200 Qty: 0 0RF amlodipine 10 mg tablet 10 mg PO DAILY Qty: 60 0RF Continued Eliquis 2.5 mg tablet 2.5 mg PO BID glipizide 10 mg tablet 10 mg PO DAILY fexofenadine 180 mg tablet 180 mg PO DAILY ergocalciferol (vitamin D2) [Vitamin D2] 1,250 mcg (50,000 unit) capsule 1,250 mcg PO SA Rx Instructions: TAKES EVERY WEEK ON SUNDAY AT BEDTIME fluoxetine 40 mg Capsule 40 mg PO BID Qty: 0 0RF carvedilol 3.125 mg Tablet 3.125 mg PO BIDCM Qty: 0 0RF atorvastatin 20 mg Tablet 20 mg PO QHS Qty: 0 0RF tolterodine 4 mg Capsule,Extended Release 24hr 4 mg PO DAILY Qty: 0 0RF pantoprazole 40 mg Tablet,Delayed Release (Dr/Ec) 40 mg PO BID Qty: 0 0RF gabapentin 100 mg Capsule 100 mg PO TID Qty: 0 0RF donepezil 10 mg tablet 10 mg PO DAILY buspirone 15 mg tablet 15 mg PO BID mirabegron 50 mg tablet extended release 24 hr 50 mg PO DAILY acetaminophen 325 mg Tablet 650 mg PO Q4H PRN (Reason: Fever, pain 1-11/21) Referrals / Follow Up: Rupal Boyer, [employer] CLERK-C [Primary Care Provider] - Within 2 Weeks Disposition Disposition (needs filled in before D/C Order can be placed): [facility]
--- NOTE | 2024-05-16 09:20 | DS.PCM_ITS ---
Providers Date of Admission: 05/14/24 Date of Discharge: 05/16/24 Primary Care Physician: ORESTES Cano Consultations 05/15/24 11:03 Consult: Nephrology Routine Consulting Provider: Jameson Carrillo Reason for Consult: DURAN EMERGENT Consult: No MD Notified: Yes Date Notified: 05/15/24 Time Notified: 11:03 Method of Notification: Verbal Reason For Visit: FALL, INTRACTABLE BACK PAIN Diagnosis Discharge Diagnosis (1) DURAN (acute kidney injury): Status: Acute Code(s): N17.9 - Acute kidney failure, unspecified (2) Fall: Status: Acute Code(s): W19.XXXA - Unspecified fall, initial encounter Plan Patient is a 68-year-old lady who presented to the emergency department following a fall with significant back pain imaging studies demonstrated no obvious fracture patient was however found to have severe multilevel degenerative changes admitted to regular nursing floor for pain management 1. Fall with intractable back pain - imaging studies demonstrated no obvious fracture patient was however found to have severe multilevel degenerative changes admitted to regular nursing floor for pain management 2. Physical deconditioning secondary to debility following the fall ? Requested for PT OT eval and social media job titles to assist with discharge planning 3. Acute kidney injury ? Creatinine on admission was 1.13 patient kidney function did bump up to 1.7 started on IV fluid with avoidance of potential nephrotoxic medications. Ordered renal ultrasound as part of patient's evaluation ? 05/15/2024Patient seen, patient kidney function did worsen. Renal ultrasound obtained the day prior demonstrated bilateral renal cyst and none obstructive calculus in the right kidney. Review of patient kidney function over the past year shows intermittent DURAN's. Consult subsequently placed to nephrology. ? DURAN resolved at the time of the 4. Dyslipidemia ?Patient is on statin therapy, continued at home dose 5. Hypertension ? Blood pressure controlled, home medications continued with dose adjustment as needed 6. History of peptic ulcer disease ?EGD performed on 01/04/2024 showed ulcers in the esophagus, duodenum, and gastric areas. Patient is on PPI 7. Diabetes mellitus type II -patient's oral 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s held. Placed on long acting insulin, Accu-Cheks a.c. and at bedtime and covered with sliding scale insulin 8. History of Takotsubo cardiomyopathy ? Remains stable 9. History of renal artery stenosis ? Remains stable 10. Paroxysmal atrial fibrillation ? Rate controlled on carvedilol and systemic anticoagulation with apixaban 11. Depression with anxiety ? Patient is on BuSpar as well as fluoxetine continue 12. Obstructive sleep apnea ? Consistent use of PAP therapy encouraged 13. DVT prophylaxis ? Patient is on apixaban 14. Hypokalemia ? Corrected per protocol prescription written and Time spent in the patient's overall evaluation,decision-making process, review of diagnostic data, adjustment of management, discussion with other providers, nursing nursing and ancillary staff involved in patient's care documentation, 40 minutes Medications at Discharge Home Medications apixaban 2.5 mg tablet (Eliquis) 2.5 mg PO BID blood thinner 02/14/24 ergocalciferol (vitamin D2) 1,250 mcg (50,000 unit) capsule (Vitamin D2) 1,250 mcg PO SA 04/20/24 fexofenadine 180 mg tablet 180 mg PO DAILY 04/20/24 glipizide 10 mg tablet 10 mg PO DAILY 04/20/24 atorvastatin 20 mg tablet 20 mg PO QHS #0 tabs 04/24/24 carvedilol 3.125 mg tablet 3.125 mg PO BIDCM #0 tabs 04/24/24 fluoxetine 40 mg capsule 40 mg PO BID #0 caps 04/24/24 gabapentin 100 mg capsule 100 mg PO TID #0 caps 04/24/24 pantoprazole 40 mg tablet,delayed release 40 mg PO BID #0 tabs 04/24/24 tolterodine 4 mg capsule,extended release 24 hr 4 mg PO DAILY #0 caps 04/24/24 acetaminophen 325 mg tablet 650 mg PO Q4H PRN Fever, pain 1-11/2105/13/24 buspirone 15 mg tablet 15 mg PO BID 05/13/24 donepezil 10 mg tablet 10 mg PO DAILY 05/13/24 mirabegron 50 mg tablet,extended release 24 hr 50 mg PO DAILY 05/13/24 Remove Patch 2 patch topical DAILY@0 ##0 05/16/24 aluminum-mag hydroxide-simethicone 400 mg-400 mg-40 mg/5 mL oral susp (Mag-Al Plus Extra Strength) 30 ml PO Q6H PRN PRN Gastric Burning #0 mL 05/16/24 amlodipine 10 mg tablet 10 mg PO DAILY #60 tabs 05/16/24 hydroxyzine pamoate 25 mg capsule 25 mg PO TID PRN PRN severe anxiety #0 caps 05/16/24 insulin lispro 100 unit/mL subcutaneous pen (Humalog KwikPen (U-100) Insulin) See Protocol subcut ACHS #0 mL 05/16/24 lidocaine 5 % topical patch 2 patch topical DAILY #0 ea 05/16/24 melatonin 3 mg tablet 3 mg PO QHS PRN PRN Insomnia #0 tabs 05/16/24 potassium chloride 20 mEq tablet,extended release(part/cryst) 20 meq PO BIDCM #0 tabs 05/16/24 sennosides 8.6 mg-docusate sodium 50 mg tablet (Stimulant Laxative Plus) 2 tab PO BID PRN PRN Constipation #0 tabs 05/16/24 tizanidine 2 mg tablet 2 mg PO Q8H PRN PRN muscle spasms/strain #0 tabs 05/16/24 Physical Exam Narrative GENERAL: cooperative HEENT: Atraumatic; normocephalic EYES; Anicteric, Normal Conjunctiva NECK; supple, normal thyroid, RESPIRATORY: Diminished to auscultation CARDIOVASCULAR: Regular S1 S2, GI: soft, normoactive bowel sounds, : No Renal angle tenderness; EXTREMITIES: No edema, no clubbing, MUSCULOSKELETAL: no muscle wasting NEURO: Awake; no lateralizing signs. SKIN: No Rash PSYCH; Flat affect Weight / BMI Weight Weight: 72.9 kg Body Mass Index (BMI) 28.4 ABG / Lab / Microbiology Data 05/16/24 05:10 05/16/24 05:10 Laboratory: Laboratory Results - last 24 hr 05/15/24 11:53: POC Glucose 156 H 05/15/24 16:25: POC Glucose 158 H 05/15/24 22:02: POC Glucose 130 H 05/16/24 05:10: WBC 10.0, RBC 3.36 L, Hgb 9.8 L, Hct 30.3 L, MCV 90.2, MCH 29.2, MCHC 32.3, RDW Std Deviation 44.9 H, RDW Coeff of Gerhard 13.6, Plt Count 179, MPV 10.2, Immature Gran % (Auto) 0.600, Neut % (Auto) 66.6, Lymph % (Auto) 22.2, [place] % (Auto) 8.0, Eos % (Auto) 2.4, Baso % (Auto) 0.2, Absolute Neuts (auto) 6.7, Absolute Lymphs (auto) 2.22, Nucleated RBC % 0, Sodium 141, Potassium 3.2 L , Chloride 113 H, Carbon Dioxide 17.8 L, Anion Gap 11, BUN 17, Creatinine 0.97, Estim Creat Clear Calc 51.63, Est GFR (MDRD) Non-Af 63, BUN/Creatinine Ratio 17.8, Glucose 145 H, Calcium 8.1 05/16/24 06:28: POC Glucose 128 H D/C Instructions Discharge Diet: 1800 Calorie Control Diet Discharge Activity: Return to Normal Activity Call your doctor if you observe: Fever of 101 or Higher, Shortness of breath, Fainting spells and Chest pain DC O2, CPAP, BIPAP Needs Home O2 Discharge instructions: No DC home with Oxygen: No Meaningful Use Info Meaningful Use Meaningful Use Diagnoses (Choose all that apply): None applicable Ischemic Stroke Statin Dosing Therapy Reference: STATIN DOSE THERAPY REFERENCE: * Patients > 75 years receive moderate or high dose statin therapy. * Patients 75 years or YOUNGER should receive HIGH intensity statin dose unless contraindicated. You will be required to document reason for non-treatment if statin daily dose does not meet guidelines. HIGH DOSE STATIN THERAPY DAILY Atorvastatin > than or = to 40 mg Rosuvastatin > than or = to 20 mg Amlodipine + Atorvastatin > than or = to 2.5/40 mg Ezetimibe + Simvastatin 10/80 mg Simvastatin 80mg Discharge Plan Admission Admit Date/Time: 05/14/24 11:43 Attending Provider: Coy Murcia Primary Care Provider: Rupal Boyer Consulting Providers: Kanwal Aguilar; Jameson Carrillo Discharge Orders/Prescriptions Prescriptions: New lidocaine 5 % Adhesive Patch,Medicated 2 patch topical DAILY Qty: 0 0RF Protocol: *Topical Application Instructions APPLICATION INSTRUCTIONS: back, s/p fall insulin lispro [Humalog KwikPen Insulin] 100 unit/mL Insulin Pen See Protocol subcut ACHS Qty: 0 0RF Protocol: 3. Sliding Scale Insulin Med Dosing Condition: 150-189 mg/dl = 1 unit Condition: 190-229 mg/dl = 2 units Condition: 230-269 mg/dl = 3 units Condition: 270-309 mg/dl = 4 units Condition: 310-349 mg/dl = 5 units Condition: 350-399 mg/dl = 6 units Condition: 400-449 mg/dl = 7 units Condition: Greater than 449 call physician Protocol Text: - Use for Total Daily Dose of Insulin 37-55 units - Obsese, infected, or steroid patients MEDIUM DOSING ALGORITHIM tizanidine 2 mg Tablet 2 mg PO Q8H PRN PRN (Reason: muscle spasms/strain) Qty: 0 0RF sennosides-docusate sodium [Stimulant Laxative Plus] 8.6-50 mg Tablet 2 tab PO BID PRN PRN (Reason: Constipation) Qty: 0 0RF melatonin 3 mg Tablet 3 mg PO QHS PRN PRN (Reason: Insomnia) Qty: 0 0RF potassium chloride 20 mEq Tablet,Er Particles/Crystals 20 meq PO BIDCM Qty: 0 0RF alum-mag hydroxide-simeth [Mag-Al Plus Extra Strength] 400-400-40 mg/5 mL Suspension 30 ml PO Q6H PRN PRN (Reason: Gastric Burning) Qty: 0 0RF hydroxyzine pamoate 25 mg Capsule 25 mg PO TID PRN PRN (Reason: severe anxiety) Qty: 0 0RF Remove Patch 2 patch topical DAILY@2200 Qty: 0 0RF amlodipine 10 mg tablet 10 mg PO DAILY Qty: 60 0RF Continued Eliquis 2.5 mg tablet 2.5 mg PO BID glipizide 10 mg tablet 10 mg PO DAILY fexofenadine 180 mg tablet 180 mg PO DAILY ergocalciferol (vitamin D2) [Vitamin D2] 1,250 mcg (50,000 unit) capsule 1,250 mcg PO SA Rx Instructions: TAKES EVERY WEEK ON SUNDAY AT BEDTIME fluoxetine 40 mg Capsule 40 mg PO BID Qty: 0 0RF carvedilol 3.125 mg Tablet 3.125 mg PO BIDCM Qty: 0 0RF atorvastatin 20 mg Tablet 20 mg PO QHS Qty: 0 0RF tolterodine 4 mg Capsule,Extended Release 24hr 4 mg PO DAILY Qty: 0 0RF pantoprazole 40 mg Tablet,Delayed Release (Dr/Ec) 40 mg PO BID Qty: 0 0RF gabapentin 100 mg Capsule 100 mg PO TID Qty: 0 0RF donepezil 10 mg tablet 10 mg PO DAILY buspirone 15 mg tablet 15 mg PO BID mirabegron 50 mg tablet extended release 24 hr 50 mg PO DAILY acetaminophen 325 mg Tablet 650 mg PO Q4H PRN (Reason: Fever, pain 1-11/21) Referrals / Follow Up: Rupal Boyer, PROFESSOR OF CRIMINAL JUSTICE-C [Primary Care Provider] - Within 2 Weeks Disposition Disposition (needs filled in before D/C Order can be placed): Residential Facility Charges/Coding Visit Charges Inpatient E&M: 26731 Disch Hosp >30min
--- NOTE | 2024-05-16 09:36 | CASEMGMT ---
Addendum entered by Corinne Beltran 05/16/24 09:54: DAVIS called [facility] and spoke with coverage line as Radha is out until 4-14. SW let them know patient is being discharged to [facility] today. Corinne RAMON Original Note: Patient is ready for discharge to [facility]. DAVIS completed a 7000 in [facility]ENS system. Physicians will transport patient via wheelchair van. Plan: d/c to [facility] under skilled level of care on a convalescent stay. Physicians will transport patient via wheelchair van. Corinne RAMON
--- NOTE | 2024-05-16 09:41 | CASEMGMT ---
Discharge Planning Discharge orders, signed med list, and transport time sent to [place]. Physicians will transport pt by wheelchair at 2:30p. Nursing, SW, and pt updated. VM left for pts daughter (Pam). Call placed to pts but there was no answer. Anum Soler DC Planning Asst.
[2024-05-16] MEDS: busPIRone 15 MG TABLET PO ×2 (10:07→21:38)
[2024-05-16] MEDS: Vibegron 75 MG TABLET PO (10:07)
[2024-05-16] MEDS: Donepezil HCl 10 MG Tablet PO (10:07)
[2024-05-16] MEDS: Potassium Chloride Oral Tablet 20 MEQ 40 MEQ PO (10:07)
[2024-05-16] MEDS: Loratadine 10 MG Tablet PO (10:07)
[2024-05-16] MEDS: Lidocaine 5% Patch 2 PATCH TOPICAL (10:07)
[2024-05-16] MEDS: APIXABAN 2.5 MG TABLET (WCH) PO ×2 (10:07→21:38)
[2024-05-16] MEDS: Pantoprazole Sodium 40 MG Tablet PO ×2 (10:07→21:41)
[2024-05-16] MEDS: Menthol/Lanolin/Calamine/Znox 113 GM Tube 1 APPLIC TOPICAL ×2 (10:08→21:36)
[2024-05-16] MEDS: Nystatin/Triamcin Cream Tube 1 APPLIC TOPICAL ×2 (10:08→21:36)
[2024-05-16] MEDS: hydrALAZINE 20 MG/ML Vial 10 MG IV ×3 (12:02→21:42)
[2024-05-16 12:26] LABS: Bedside Glucose 140 mg/dL (74-106)
--- NOTE | 2024-05-16 13:59 | CASEMGMT ---
[facility] notified that pts discharge has been cancelled and that she could possibly admit over the weekend. Green sheet completed and placed on chart. Anum Soler DC Planning Asst.
--- NOTE | 2024-05-16 14:09 | NURSING ---
Call returned to pts Eduardo to update him that the discharge was canceled d/t pt being hypertensive and physician wanting bp to be under better control before sending her back to [facility]. Eduardo very upset with the fact that pt was given morphine overnight. Informed him that nightshift RN reported to this RN that pt was in a lot of pain overnight and her blood pressure was not well controlled at all and the nightshift physician ordered it to help control her pain and blood pressure d/t her morphine allergy listed as confusion. Demand that this RN contact nightshift physician; informed him that is not possible and offered to have dayshift doctor reach out to him. Offered number for patient advocate. Eduardo stated well what good is that going to do. Educated on purpose of patient advocate. Eduardo had no reply, then started yelling and belittling this nurse that patient was getting coke stating 'that is toxic! it can dissolve a nail' Informed him that pt had not had any coke for this RN this shift, but I could not speak to prior shifts. Pt has only had milk and ice water this shift. Eduardo then wanted to know how many doctors the pt needs in 24 hrs; education on hospitalist and nephrology consult provided. Eduardo not understanding the purpose of nephrology despite multiple explanations provided. Eduardo also voiced frustration that pt has lidocaine patches on for pain, and that 'they are the reason her BP is so high'. Education provided that the patches are transdermal, and that pt has been in pain and has several allergies/sensitivities to pain medications and we are limited on what we can provide to her for pain relief. Eduardo hung up on this nurse. enforcement officer made aware. Spoke with Tom, pt advocate who encouraged passing his number along if he would like to voice concerns.
--- NOTE | 2024-05-16 14:26 | EKG12_ITS ---
Test Reason : DYSPNEA/SOB Blood Pressure : */* mmHG Vent. Rate : 106 BPM Atrial Rate : 106 BPM P-R Int : 170 ms QRS Dur : 84 ms QT Int : 390 ms P-R-T Axes : 63 -3 61 degrees QTcB Int : 518 ms Sinus tachycardia Otherwise normal ECG When compared with ECG of 20-Apr-2024 15:46, No significant change was found Confirmed by TERRI WRIGHT, KATARINA ([id number]), purchasing expeditor CAIT VIDES ([id number]) on 05/19/2024 9:18:25 AM Referred By: Confirmed By: KATARINA MURRAY MD
--- NOTE | 2024-05-16 14:35 | PN.HOSP_ITS ---
Reason for Visit Reason for Visit: Diagnoses Other low back pain (05/14/24) Acute kidney failure, unspecified (05/14/24) Unspecified fall, initial encounter (05/14/24) Subjective Subjective Plan was for patient to be discharged to a fdc facility however she was found to have markedly elevated blood pressure prior to being discharged the discharge was subsequently discontinued. Patient systolic blood pressure was greater than 200 started on hydralazine as well as scheduled amlodipine. As part of her management ordered checks x-ray serial cardiac enzymes and EKG Objective Data Objective Data Vital Signs: Vital Signs Temp Pulse Resp BP Pulse Ox O2 Del Method 99.1 F 101 H 18 196/86 H 97 Room Air 05/16/24 12:06 05/16/24 13:01 05/16/24 12:06 05/16/24 13:41 05/16/24 12:06 05/16/24 12:06 Oxygen Delivery Method Room Air Weight: 72.9 kg Body Mass Index (BMI) 28.4 Intake & Output: Intake and Output for Last 24 Hours 05/14/24 05/15/24 05/16/24 23:59 23:59 23:59 Intake Total 3632.5 / 3632.5 2100 / 2100 2580.0 / 2580.0 Output Total 600 / 1300 2500 / 2500 Balance 3632.5 / 3432.5 1500 / 800 80.0 / 80.0 Lab / Micro Data 05/16/24 05:10 05/16/24 05:10 Labs: Laboratory Results - last 24 hr 05/15/24 16:25: POC Glucose 158 H 05/15/24 22:02: POC Glucose 130 H 05/16/24 05:10: WBC 10.0, RBC 3.36 L, Hgb 9.8 L, Hct 30.3 L, MCV 90.2, MCH 29.2, MCHC 32.3, RDW Std Deviation 44.9 H, RDW Coeff of Gerhard 13.6, Plt Count 179, MPV 10.2, Immature Gran % (Auto) 0.600, Neut % (Auto) 66.6, Lymph % (Auto) 22.2, [place] % (Auto) 8.0, Eos % (Auto) 2.4, Baso % (Auto) 0.2, Absolute Neuts (auto) 6.7, Absolute Lymphs (auto) 2.22, Nucleated RBC % 0, Sodium 141, Potassium 3.2 L , Chloride 113 H, Carbon Dioxide 17.8 L, Anion Gap 11, BUN 17, Creatinine 0.97, Estim Creat Clear Calc 51.63, Est GFR (MDRD) Non-Af 63, BUN/Creatinine Ratio 17.8, Glucose 145 H, Calcium 8.1 05/16/24 06:28: POC Glucose 128 H 05/16/24 12:08: POC Glucose 140 H Physical Exam Narrative GENERAL: cooperative HEENT: Atraumatic; normocephalic EYES; Anicteric, Normal Conjunctiva NECK; supple, normal thyroid, RESPIRATORY: Diminished to auscultation CARDIOVASCULAR: Regular S1 S2, GI: soft, normoactive bowel sounds, : No Renal angle tenderness; EXTREMITIES: No edema, no clubbing, MUSCULOSKELETAL: no muscle wasting NEURO: Awake; no lateralizing signs. SKIN: No Rash PSYCH; Flat affect Assessment & Plan Assessment/Plan (1) DURAN (acute kidney injury): (2) Fall: PLAN: Plan Patient is a 68-year-old lady who presented to the emergency department following a fall with significant back pain imaging studies demonstrated no obvious fracture patient was however found to have severe multilevel degenerative changes admitted to regular nursing floor for pain management 1. Fall with intractable back pain - imaging studies demonstrated no obvious fracture patient was however found to have severe multilevel degenerative changes admitted to regular nursing floor for pain management 2. Physical deconditioning secondary to debility following the fall ? Requested for PT OT eval and psychiatric social worker supervisor to assist with discharge planning 3. Acute kidney injury ? Creatinine on admission was 1.13 patient kidney function did bump up to 1.7 started on IV fluid with avoidance of potential nephrotoxic medications. Ordered renal ultrasound as part of patient's evaluation ? 05/15/2024Patient seen, patient kidney function did worsen. Renal ultrasound obtained the day prior demonstrated bilateral renal cyst and none obstructive calculus in the right kidney. Review of patient kidney function over the past year shows intermittent DURAN's. Consult subsequently placed to nephrology. ? DURAN resolved at the time of the 4. Dyslipidemia ?Patient is on statin therapy, continued at home dose 5. Hypertension ? Blood pressure controlled, home medications continued with dose adjustment as needed ? 05/16/2024; patient was found to have markedly elevated blood pressure necessitating discontinuation of her discharge adjustment made to her home medication regimen 6. History of peptic ulcer disease ?EGD performed on 01/04/2024 showed ulcers in the esophagus, duodenum, and gastric areas. Patient is on PPI 7. Diabetes mellitus type II -patient's oral 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s held. Placed on long acting insulin, Accu-Cheks a.c. and at bedtime and covered with sliding scale insulin 8. History of Takotsubo cardiomyopathy ? Remains stable 9. History of renal artery stenosis ? Remains stable 10. Paroxysmal atrial fibrillation ? Rate controlled on carvedilol and systemic anticoagulation with apixaban 11. Depression with anxiety ? Patient is on BuSpar as well as fluoxetine continue 12. Obstructive sleep apnea ? Consistent use of PAP therapy encouraged 13. DVT prophylaxis ? Patient is on apixaban 14. Hypokalemia ? Corrected per protocol prescription written and Time spent in the patient's overall evaluation,decision-making process, review of diagnostic data, adjustment of management, discussion with other providers, nursing nursing and ancillary staff involved in patient's care documentation, 40 minutes Charges/Coding Visit Charges Inpatient E&M: 39714 [facility] Hosp L2
[2024-05-16 14:40] LABS: Bedside Glucose 175 mg/dL (74-106)
--- NOTE | 2024-05-16 14:45 | RAD_ITS ---
PROCEDURE: CHEST PA AND LATERAL 05/16/2024 REASON FOR EXAM: DYSPNEA TECHNIQUE: Frontal and lateral views of the chest. COMPARISON: Comparison is made with prior study dated February 13, 2024. FINDINGS: Hardware: EKG electrodes are seen. Heart: The heart size is normal. Mediastinum: The mediastinal contour is unremarkable. Tortuosity of the descending thoracic aorta. Lungs: The lungs are clear. Bones: The bones are unremarkable. RAD/Chest PA and Lateral IMPRESSION: NO ACUTE FINDINGS. Reading Location: [place] [id number]
[2024-05-16] MEDS: Furosemide 40 MG/4 ML Vial IV (15:06)
[2024-05-16] MEDS: hydrALAZINE 25 MG Tablet PO ×3 (15:17→21:37)
[2024-05-16] MEDS: amLODIPine 10 MG Tablet PO (15:19)
[2024-05-16 15:44] LABS: Troponin T High Sensitivity 17 ng/L (<=14)
[2024-05-16] MEDS: Potassium Chloride Oral Tablet 20 MEQ PO (16:28)
[2024-05-16] MEDS: Insulin Lispro 100 UNIT/ML INSULN.PEN SC ×2 (16:28→21:39)
[2024-05-16] MEDS: hydrOXYzine PAM 25 MG Capsule PO (16:34)
[2024-05-16 17:19] LABS: Bedside Glucose 228 mg/dL (74-106)
[2024-05-16 17:37] LABS: Troponin T High Sens 2 HR 18 ng/L (<=14)
[2024-05-16 19:03] LABS: Troponin T High Sens 4 HR 18 ng/L (<=14)
[2024-05-16] MEDS: Senna/Docusate Sodium 1 Tablet 2 TABLET PO (21:38)
[2024-05-16] MEDS: MELATONIN 3 MG TABLET PO (21:39)
[2024-05-16] MEDS: Atorvastatin Calcium 20 MG Tablet PO (21:40)
[2024-05-16 23:09] LABS: Bedside Glucose 210 mg/dL (74-106)
[2024-05-17] VITALS (9 sets, daily range): BP systolic 92–126; BP diastolic 50–92; PULSE 80–108; RESP 14–18; TEMP 36.4–36.6; O2SAT 93–99; BMI 27.8
[2024-05-17] MEDS: hydrOXYzine PAM 25 MG Capsule PO (00:57)
[2024-05-17] MEDS: Mag Hydrox/Al Hydrox/Simeth 30 ML UDC PO (00:57)
[2024-05-17] MEDS: Gabapentin 100 MG Capsule 200 MG PO ×2 (05:19→14:11)
[2024-05-17] MEDS: Acetaminophen 325 MG Tablet 650 MG PO ×2 (05:20→11:46)
[2024-05-17] MEDS: Insulin Lispro 100 UNIT/ML INSULN.PEN SC ×2 (06:29→11:43)
[2024-05-17 06:51] LABS: Bedside Glucose 190 mg/dL (74-106)
[2024-05-17 07:08] LABS: Anion Gap 13 (5-15); BUN 21 mg/dL (4-19); BUN/Creat Ratio 18.8 RATIO (10-20); Calcium,Total 8.8 mg/dL (7.6-11.0); Carbon Dioxide 19.8 mmol/L (21.0-32.0); Chloride 105 mmol/L (98-108); Creatinine, Serum 1.13 mg/dL (0.70-1.20); EST Glomerular Filtration Rate 52 (>60); Estimated Creatinine Clearance 43.85 ml/min (50-250); Glucose 229 mg/dL (70-99); Potassium 4.1 mmol/L (3.3-5.1); Sodium Level 138 mmol/L (133-145)
[2024-05-17 07:19] LABS: Protein:Creat Ratio 4608 mg/g CRE (0-200)
--- NOTE | 2024-05-17 07:52 | PN.HOSP_ITS ---
Reason for Visit Reason for Visit: Diagnoses Other low back pain (05/14/24) Acute kidney failure, unspecified (05/14/24) Unspecified fall, initial encounter (05/14/24) Subjective Subjective Patient discharged the day prior was discontinued after she developed significantly elevated blood pressure. Adjusted blood pressure medications patient blood pressure has since improved. Patient blood pressure this a.m. is actually on the low side 92/50. Will continue with monitoring and discharge patient once patient blood pressure stabilizes. Objective Data Objective Data Vital Signs: Vital Signs Temp Pulse Resp BP Pulse Ox O2 Del Method 97.6 F L 108 H 18 103/61 96 Room Air 05/17/24 03:37 05/17/24 03:37 05/17/24 03:37 05/17/24 03:37 05/17/24 03:37 05/17/24 03:37 Oxygen Delivery Method Room Air Weight: 71.3 kg Body Mass Index (BMI) 27.8 Intake & Output: Intake and Output for Last 24 Hours 05/15/24 05/16/24 05/17/24 23:59 23:59 23:59 Intake Total 2100 / 2100 3200.0 / 3200.0 120 / 120 Output Total 600 / 1300 3600 / 3600 600 / 600 Balance 1500 / 800 -400.0 / -400.0 -480 / -480 Lab / Micro Data 05/17/24 05:55 05/17/24 05:55 Labs: Laboratory Results - last 24 hr 05/16/24 12:08: POC Glucose 140 H 05/16/24 14:20: POC Glucose 175 H 05/16/24 14:59: Troponin T High Sens 17 H 05/16/24 16:26: POC Glucose 228 H 05/16/24 16:51: Troponin T Hi Sens 2 Hr 18 H 05/16/24 18:33: Troponin T Hi Sens 4Hr 18 H 05/16/24 21:34: POC Glucose 210 H 05/17/24 03:41: U Random Total Protein 100.0 H, Urine Creatinine 21.70 L, P rotein/Creatinin Ratio 4608 H 05/17/24 05:55: Sodium 138, Potassium 4.1, Chloride 105, Carbon Dioxide 19.8 L, Anion Gap 13, BUN 21 H, Creatinine 1.13, Estim Creat Clear Calc 43.85 L, Est GFR (MDRD) Non-Af 52 L, BUN/Creatinine Ratio 18.8, Glucose 229 H, Calcium 8.8 05/17/24 06:27: POC Glucose 190 H Radiography Diagnostic Testing: Radiology Impression Chest X-Ray 05/16/24 14:45 IMPRESSION: NO ACUTE FINDINGS. Reading Location: [place] [id number] Physical Exam Narrative GENERAL: cooperative HEENT: Atraumatic; normocephalic EYES; Anicteric, Normal Conjunctiva NECK; supple, normal thyroid, RESPIRATORY: Diminished to auscultation CARDIOVASCULAR: Regular S1 S2, GI: soft, normoactive bowel sounds, : No Renal angle tenderness; EXTREMITIES: No edema, no clubbing, MUSCULOSKELETAL: no muscle wasting NEURO: Awake; no lateralizing signs. SKIN: No Rash PSYCH; Flat affect Assessment & Plan Assessment/Plan (1) DURAN (acute kidney injury): (2) Fall: PLAN: Plan Patient is a 68-year-old lady who presented to the emergency department following a fall with significant back pain imaging studies demonstrated no obvious fracture patient was however found to have severe multilevel degenerative changes admitted to regular nursing floor for pain management 1. Fall with intractable back pain - imaging studies demonstrated no obvious fracture patient was however found to have severe multilevel degenerative changes admitted to regular nursing floor for pain management 2. Physical deconditioning secondary to debility following the fall ? Requested for PT OT eval and social welfare research worker to assist with discharge planning 3. Acute kidney injury ? Creatinine on admission was 1.13 patient kidney function did bump up to 1.7 started on IV fluid with avoidance of potential nephrotoxic medications. Ordered renal ultrasound as part of patient's evaluation ? 05/15/2024Patient seen, patient kidney function did worsen. Renal ultrasound obtained the day prior demonstrated bilateral renal cyst and none obstructive calculus in the right kidney. Review of patient kidney function over the past year shows intermittent DURAN's. Consult subsequently placed to nephrology. ? DURAN resolved at the time of the 4. Dyslipidemia ?Patient is on statin therapy, continued at home dose 5. Hypertension ? Blood pressure controlled, home medications continued with dose adjustment as needed ? 05/16/2024; patient was found to have markedly elevated blood pressure necessitating discontinuation of her discharge adjustment made to her home medication regimen ? 05/17/2024;Patient discharged the day prior was discontinued after she developed significantly elevated blood pressure. Adjusted blood pressure medications patient blood pressure has since improved. Patient blood pressure this a.m. is actually on the low side 92/50. Will continue with monitoring and discharge patient once patient blood pressure stabilizes. 6. History of peptic ulcer disease ?EGD performed on 01/04/2024 showed ulcers in the esophagus, duodenum, and gastric areas. Patient is on PPI 7. Diabetes mellitus type II -patient's oral 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s held. Placed on long acting insulin, Accu-Cheks a.c. and at bedtime and covered with sliding scale insulin 8. History of Takotsubo cardiomyopathy ? Remains stable 9. History of renal artery stenosis ? Remains stable 10. Paroxysmal atrial fibrillation ? Rate controlled on carvedilol and systemic anticoagulation with apixaban 11. Depression with anxiety ? Patient is on BuSpar as well as fluoxetine continue 12. Obstructive sleep apnea ? Consistent use of PAP therapy encouraged 13. DVT prophylaxis ? Patient is on apixaban 14. Hypokalemia ? Corrected per protocol prescription written and Time spent in the patient's overall evaluation,decision-making process, review of diagnostic data, adjustment of management, discussion with other providers, nursing nursing and ancillary staff involved in patient's care documentation, 40 minutes Charges/Coding Visit Charges Inpatient E&M: 26461 [facility] Hosp L2
[2024-05-17] MEDS: Pantoprazole Sodium 40 MG Tablet PO (08:28)
[2024-05-17] MEDS: APIXABAN 2.5 MG TABLET (WCH) PO (08:28)
[2024-05-17] MEDS: Donepezil HCl 10 MG Tablet PO (08:28)
[2024-05-17] MEDS: Vibegron 75 MG TABLET PO (08:28)
[2024-05-17] MEDS: Loratadine 10 MG Tablet PO (08:28)
[2024-05-17] MEDS: Potassium Chloride Oral Tablet 20 MEQ PO (08:29)
[2024-05-17] MEDS: busPIRone 15 MG TABLET PO (08:29)
[2024-05-17] MEDS: Lidocaine 5% Patch 2 PATCH TOPICAL (08:30)
[2024-05-17] MEDS: Menthol/Lanolin/Calamine/Znox 113 GM Tube 1 APPLIC TOPICAL (08:42)
[2024-05-17] MEDS: Nystatin/Triamcin Cream Tube 1 APPLIC TOPICAL (08:43)
[2024-05-17 09:46] LABS: Absolute Lymphocyte Count 2.47 X10^3/uL (0.83-4.51); Absolute Neutrophil Count 9.3 X10^3/uL (2.0-7.7); Basophil# 0.02 X10^3/uL; Basophil% 0.2 % (0-1); Eosinophil# 0.09 X10^3/uL; Eosinophils% 0.7 % (0-5); Hematocrit 36.3 % (37-47); Hemoglobin 11.9 g/dL (12.0-15.0); Lymphocyte # 2.47 X10^3/ul (0.83-4.51); Lymphocyte % 19.1 % (19-41); Mean Corp Hgb Conc 32.8 g/dL (32-36); Mean Corpuscular Hgb 29.2 pg (27.0-32.0); Mean Platelet Vol. 10.1 fl (6.2-12.0); Monocyte# 1.03 X10^3/uL; NRBC Flagged by Analyzer 0 % (0-5); Neutrophil % 71.7 % (47-70); Platelet Count 249 K/mm3 (150-450); RBC Distribution Width CV 13.9 % (11.6-14.6); Red Blood Count 4.08 M/mm3 (4.2-5.4)
[2024-05-17 12:02] LABS: Bedside Glucose 199 mg/dL (74-106)
== END 2024-05-17 15:53 | DRG 683 ==
LOC: ED 21:10 → PCU 22:18
PROVIDERS: Nurse Practitioner Adult Health; Admitting Provider Family Medicine; Emergency Provider Emergency Medicine; PCP Nurse Practitioner Family; Visit Provider Internal Medicine
DX: N17.9 Acute kidney failure, unspecified (principal); F03.94 Unspecified dementia, unspecified severity, with anxiety; Q25.46 Tortuous aortic arch; I51.81 Takotsubo syndrome; K22.10 Ulcer of esophagus without bleeding; F03.93 Unspecified dementia, unspecified severity, with mood disturbance; S50.812A Abrasion of left forearm, initial encounter; I48.0 Paroxysmal atrial fibrillation; E86.9 Volume depletion, unspecified; E11.22 Type 2 diabetes mellitus with diabetic chronic kidney disease; F31.9 Bipolar disorder, unspecified; I12.9 Hypertensive chronic kidney disease with stage 1 through stage 4 chronic kidney disease, or unspecified chronic kidney disease; I70.1 Atherosclerosis of renal artery; K26.9 Duodenal ulcer, unspecified as acute or chronic, without hemorrhage or perforation; S51.811A Laceration without foreign body of right forearm, initial encounter; E11.65 Type 2 diabetes mellitus with hyperglycemia; M62.830 Muscle spasm of back; I25.10 Atherosclerotic heart disease of native coronary artery without angina pectoris; R26.2 Difficulty in walking, not elsewhere classified; N18.2 Chronic kidney disease, stage 2 (mild); E78.00 Pure hypercholesterolemia, unspecified; G47.33 Obstructive sleep apnea (adult) (pediatric); M54.50 Low back pain, unspecified; F41.8 Other specified anxiety disorders; W18.30XA Fall on same level, unspecified, initial encounter; Z79.4 Long term (current) use of insulin; I25.2 Old myocardial infarction; E87.8 Other disorders of electrolyte and fluid balance, not elsewhere classified; M47.9 Spondylosis, unspecified; E87.6 Hypokalemia; Z87.891 Personal history of nicotine dependence; Z90.710 Acquired absence of both cervix and uterus; Z79.01 Long term (current) use of anticoagulants; R53.81 Other malaise; Z88.5 Allergy status to narcotic agent; Z88.8 Allergy status to other drugs, medicaments and biological substances; Z79.02 Long term (current) use of antithrombotics/antiplatelets; Z79.84 Long term (current) use of oral 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 drugs; Z98.890 Other specified postprocedural states; R80.9 Proteinuria, unspecified; G89.29 Other chronic pain; Z99.89 Dependence on other enabling machines and devices; K25.9 Gastric ulcer, unspecified as acute or chronic, without hemorrhage or perforation; N20.0 Calculus of kidney
CPT/HCPCS: 36415; 70450; 71046; 72131; 76770; 80048; 80053; 81001; 82570; 82962; 83735; 84100; 84145; 84156; 84484; 85025; 90715; 93005; 94668; 97116; 97162; 97166; 97530; 99285; A4216; J1940

== ENCOUNTER 2024-05-17 21:36 | Emergency (ER) | payer MEDICARE, MEDICAID, SELFPAY ==
[2024-05-17 21:39] VITALS: BP 179/94; PULSE 121; RESP 26; TEMP 37.2; O2SAT 97; BMI 27.2
[2024-05-17] MEDS: Orphenadrine 60 MG/2 ML Ampul IM (22:22)
[2024-05-17] MEDS: Acetaminophen 500 MG Tablet 1000 MG PO (22:22)
--- NOTE | 2024-05-17 22:37 | ED.VIS.BACK ---
HPI History of Present Illness Chief Complaint: Back Informant: EMS Narrative Narrative: 68-year-old female presenting from fdc for back and left hip pain. She points to her left lower quadrant and keeps calling it my ovary. She states she has no idea if this is her ovary that is hurting, she states it is in that area and she knows she only has 1 ovary on the left side and so she is assuming that it could be ovarian pain but she does not know. She states she had a fall a week ago and started having this pain as well as in her low back worse on the right than the left, no radiation into the legs or bowel or bladder dysfunction, she was seen here in hospital and admitted, and sent to [facility] for rehab because of this pain. She states tonight one of the aides was helping her get on her pajamas and her foot got hooked on her pajamas, and she jerked my leg causing these painful areas to feel worse and give her what feels like muscle spasms from my knees to my breasts. She denies any new pain. She states she asked them for some Tylenol for the pain but they sent her to the ER without giving her anything. [facility] Medical History DURAN (acute kidney injury) Sepsis High anion gap metabolic acidosis Acute kidney injury Candidal intertrigo Acute UTI Recurrent falls Acute delirium Altered level of consciousness Acute encephalopathy Myocardial infarction type 2 Non-ST elevation [place] (NSTEMI) Hiatal hernia Irritable bowel Back pain due to injury Restless legs Injury of head and neck High cholesterol Hearing loss, right Bipolar disorder Depression Anxiety GERD (gastroesophageal reflux disease) Former smoker Sleep apnea Atrial fibrillation Migraines Dementia Closed intertrochanteric fracture of left hip Psoriatic arthritis Nonobstructive atherosclerosis of coronary artery Obesity Type 2 diabetes mellitus Takotsubo syndrome Hyperlipidemia Essential (primary) hypertension NSTEMI (non-ST elevated myocardial infarction) (01/06/18) Home Medications ?Medication ?Instructions ?Recorded ?Last Taken ?Type apixaban 2.5 mg tablet (Eliquis) 2.5 mg PO BID blood thinner 02/14/24 Unknown History ergocalciferol (vitamin D2) 1,250 1,250 mcg PO SA vitamin 04/20/24 05/10/24 History mcg (50,000 unit) capsule (Vitamin D2) fexofenadine 180 mg tablet 180 mg PO DAILY allergies 04/20/24 Unknown History glipizide 10 mg tablet 10 mg PO DAILY diabetes 04/20/24 Unknown History atorvastatin 20 mg tablet 20 mg PO QHS cholesterol #0 tabs 04/24/24 05/12/24 Rx carvedilol 3.125 mg tablet 3.125 mg PO BIDCM blood pressure 04/24/24 05/13/24 Rx #0 tabs fluoxetine 40 mg capsule 40 mg PO BID #0 caps 04/24/24 Unknown Rx gabapentin 100 mg capsule 100 mg PO TID nerve pain #0 caps 04/24/24 Unknown Rx pantoprazole 40 mg tablet,delayed 40 mg PO BID reflux #0 tabs 04/24/24 Unknown Rx release tolterodine 4 mg capsule,extended 4 mg PO DAILY #0 caps 04/24/24 Unknown Rx release 24 hr acetaminophen 325 mg tablet 650 mg PO Q4H PRN Fever, pain 05/13/24 05/12/24 History -11/21 buspirone 15 mg tablet 15 mg PO BID mental health 05/13/24 Unknown History donepezil 10 mg tablet 10 mg PO DAILY memory 05/13/24 Unknown History mirabegron 50 mg tablet,extended 50 mg PO DAILY bladder 05/13/24 Unknown History release 24 hr Remove Patch 2 patch topical DAILY@2200 ##0 05/16/24 Unknown Rx aluminum-mag hydroxide-simethicone 30 ml PO Q6H PRN PRN Gastric 05/16/24 Unknown Rx 400 mg-400 mg-40 mg/5 mL oral susp Burning #0 mL (Mag-Al Plus Extra Strength) amlodipine 10 mg tablet 10 mg PO DAILY #60 tabs 05/16/24 Unknown Rx hydroxyzine pamoate 25 mg capsule 25 mg PO TID PRN PRN severe 05/16/24 Unknown Rx anxiety #0 caps insulin lispro 100 unit/mL See Protocol subcut ACHS #0 mL 05/16/24 Unknown Rx subcutaneous pen (Humalog KwikPen (U-100) Insulin) lidocaine 5 % topical patch 2 patch topical DAILY #0 ea 05/16/24 Unknown Rx melatonin 3 mg tablet 3 mg PO QHS PRN PRN Insomnia #0 05/16/24 Unknown Rx tabs potassium chloride 20 mEq 20 meq PO BIDCM #0 tabs 05/16/24 Unknown Rx tablet,extended release(part/cryst) sennosides 8.6 mg-docusate sodium 2 tab PO BID PRN PRN Constipation 05/16/24 Unknown Rx 50 mg tablet (Stimulant Laxative #0 tabs Plus) tizanidine 2 mg tablet 2 mg PO Q8H PRN PRN muscle 05/16/24 Unknown Rx spasms/strain #0 tabs Allergy/AdvReac Type Severity Reaction Status Date / Time morphine Allergy Mild confusion Verified 05/17/24 21:38 codeine Allergy Itching Verified 05/17/24 21:38 fentanyl AdvReac confusion Verified 05/17/24 21:38 naproxen AdvReac Other Verified 05/17/24 21:38 Family History Mother Cancer skin Father Cancer prostate Surgical History History of back surgery History of carpal tunnel release of both wrists History of hysterectomy History of left heart catheterization (01/07/18) Social History household members: spouse Smoking Status: Former smoker how long ago did patient quit smokin years ago alcohol intake: never substance use type: does not use caffeine: Yes Type: carbonated beverages Number of servings: 1 ROS ROS ED Constitutional Constitutional ED: Denies chills or fever(s) Eyes Eyes: Denies change in vision Cardiovascular Cardiovascular: Denies chest pain Respiratory/Chest Respiratory/Chest: Denies dyspnea Gastrointestinal Gastrointestinal: Denies constipation, fecal incontinence, nausea or vomiting Genitourinary Genitourinary ED: Reports other Details: no urinary retention ; Denies abdominal discomfort or urinary incontinence Musculoskeletal Musculoskeletal: Reports as per HPI, back pain and other Details: Muscle spasms ; Denies neck pain Integumentary Denies rash or wounds Neurologic Neurologic: Denies headache(s), paresthesias or weakness EXAM Physical Exam Const Vital Signs: 05/17/24 21:39 05/17/24 23:42 05/18/24 01:00 Temperature 99 F Temperature Source Oral Pulse Rate 121 H 99 108 H Respiratory Rate 26 H 22 H 24 H Blood Pressure 179/94 H 143/73 H 150/79 H Blood Pressure Mean 122 96 102 Pulse Ox 97 98 99 Oxygen Delivery Method Room Air Room Air Room Air 05/18/24 02:25 Temperature Temperature Source Pulse Rate Respiratory Rate Blood Pressure 149/76 H Blood Pressure Mean 100 Pulse Ox Oxygen Delivery Method Positive well nourished and well developed General Appearance ED: well developed and NAD HEENT Negative for trauma or tenderness Eyes PERRL and EOMs intact bilaterally Neck full ROM and supple Resp normal respiratory effort and clear to auscultation bilaterally Cardio regular rate and regular rhythm GI normal to inspection, nondistended, normoactive bowel sounds, soft to palpation and non-tender GI Narrative: There is no significant abdominal tenderness. She has some lower abdominal obesity limiting the exam, but the majority of the area of her tenderness at the left ASIS in this area. There is no crepitance or overlying skin abnormalities. Back/Spine normal to inspection Back/Spine Narrative: Painful range of motion, tender in the buttocks and paraspinal right lumbosacral spine without midline tenderness. No rashes. Also tender in the external rotators of the buttocks and both sides. No greater trochanter tenderness bilaterally. Lumbar Spine / Lower Back: ROM limited, paraspinal muscle tenderness and straight leg raise negative bilaterally; Negative for lumbar spinal tenderness Extremity normal to inspection, full ROM and no pedal edema Extremity Narrative: Able to range hips with internal and external rotation without significant difficulty or pain in that area, chest or back. Neuro oriented x3 and no sensory deficits noted Sensorium / Orientation: alert Motor Exam: strength 5/5 throughout and clonus absent Deep Tendon Reflexes: Rt Patellar (L4): 2+, Lt Patellar (L4): 2+, Rt Ankle (S1): 2+ and Lt Ankle (S1): 2+ Deep Tendon Reflexes Back: Rt Patellar (L4): 2+, Lt Patellar (L4): 2+, Rt Ankle (S1): 2+ and Lt Ankle (S1): 2+ Plantar Reflex: Downgoing: bilateral Psych mental status grossly normal and thought process normal Skin no rashes or lesions noted and no wounds MDM MDM MDM Narrative Medical decision making narrative: I reviewed this patient's recent admission and imaging. She had abdominal/pelvis imaging less than 1 month ago, other than healed old fractures in multiple areas of the back, pelvis, hips, there is no other intra-abdominal acute condition. Her exam is that of musculoskeletal back pain and muscle spasm. I am able to bend her knees and flex her thighs, she has some increased pain in her back, she has no radicular symptoms, and no objective spasm, but she complains of some. I treated her pain with multiple modalities including muscle relaxers, Ativan, Tylenol, oxycodone. In the end she states that the edge was taken off but she was still in pain and wanted something more. I discussed with her that really the only other option was her parenteral analgesics, she states she has a history of reaction to those but while she was in the hospital she got a dose of morphine and she did not get confused and it allowed her to sleep and gave her some relief. I offered it to her, as long as he tolerated a before, where she could go back to rehab without it, she chose to get it and it helped some. After treating her pain her tachycardia is almost completely resolved and her blood pressure is better. I do not think she needs to be readmitted I do not think she needs repeat emergent imaging. This all seems very muscular she has no spinal tenderness, neurologic abnormalities, abnormal reflexes, symptoms or signs of cauda equina syndrome, and the mechanism is all consistent with muscle strain and spasm. I think she stable to go back to rehab. I reevaluation after the morphine, she is improved, she is not disoriented, her vital signs are stable, and she is having no adverse effects from this medication at this time. This is about 2 hours after administration. Discharge Plan Triage Chief Complaint: Back ED Provider: Nico Arce Dx/Rx/DC Orders Clinical Impression: Acute low back pain, Muscle spasm Instructions: ED Back Pain (Acute or Chronic) Prescriptions: No Action Eliquis 2.5 mg tablet 2.5 mg PO BID glipizide 10 mg tablet 10 mg PO DAILY fexofenadine 180 mg tablet 180 mg PO DAILY ergocalciferol (vitamin D2) [Vitamin D2] 1,250 mcg (50,000 unit) capsule 1,250 mcg PO SA Rx Instructions: TAKES EVERY WEEK ON SUNDAY AT BEDTIME fluoxetine 40 mg Capsule 40 mg PO BID Qty: 0 0RF carvedilol 3.125 mg Tablet 3.125 mg PO BIDCM Qty: 0 0RF atorvastatin 20 mg Tablet 20 mg PO QHS Qty: 0 0RF tolterodine 4 mg Capsule,Extended Release 24hr 4 mg PO DAILY Qty: 0 0RF pantoprazole 40 mg Tablet,Delayed Release (Dr/Ec) 40 mg PO BID Qty: 0 0RF gabapentin 100 mg Capsule 100 mg PO TID Qty: 0 0RF donepezil 10 mg tablet 10 mg PO DAILY buspirone 15 mg tablet 15 mg PO BID mirabegron 50 mg tablet extended release 24 hr 50 mg PO DAILY acetaminophen 325 mg Tablet 650 mg PO Q4H PRN (Reason: Fever, pain -11/21) lidocaine 5 % Adhesive Patch,Medicated 2 patch topical DAILY Qty: 0 0RF Protocol: *Topical Application Instructions APPLICATION INSTRUCTIONS: back, s/p fall insulin lispro [Humalog KwikPen Insulin] 100 unit/mL Insulin Pen See Protocol subcut ACHS Qty: 0 0RF Protocol: 3. Sliding Scale Insulin Med Dosing Condition: 150-189 mg/dl = 1 unit Condition: 190-229 mg/dl = 2 units Condition: 230-269 mg/dl = 3 units Condition: 270-309 mg/dl = 4 units Condition: 310-349 mg/dl = 5 units Condition: 350-399 mg/dl = 6 units Condition: 400-449 mg/dl = 7 units Condition: Greater than 449 call physician Protocol Text: - Use for Total Daily Dose of Insulin 37-55 units - Obsese, infected, or steroid patients MEDIUM DOSING ALGORITHIM tizanidine 2 mg Tablet 2 mg PO Q8H PRN PRN (Reason: muscle spasms/strain) Qty: 0 0RF sennosides-docusate sodium [Stimulant Laxative Plus] 8.6-50 mg Tablet 2 tab PO BID PRN PRN (Reason: Constipation) Qty: 0 0RF melatonin 3 mg Tablet 3 mg PO QHS PRN PRN (Reason: Insomnia) Qty: 0 0RF potassium chloride 20 mEq Tablet,Er Particles/Crystals 20 meq PO BIDCM Qty: 0 0RF alum-mag hydroxide-simeth [Mag-Al Plus Extra Strength] 400-400-40 mg/5 mL Suspension 30 ml PO Q6H PRN PRN (Reason: Gastric Burning) Qty: 0 0RF hydroxyzine pamoate 25 mg Capsule 25 mg PO TID PRN PRN (Reason: severe anxiety) Qty: 0 0RF Remove Patch 2 patch topical DAILY@2200 Qty: 0 0RF amlodipine 10 mg tablet 10 mg PO DAILY Qty: 60 0RF Primary Care Provider: Rupal Boyer Referrals: Rupal Boyer, [facility] [employer] [facility] [Primary Care Provider] - As soon as possible (or rehab provider) Print Language: Taiwanese Disposition Disposition: Home, Self Care
[2024-05-17] MEDS: oxyCODONE 5 MG Tablet PO (23:37)
[2024-05-17 23:42] VITALS: BP 143/73; PULSE 99; RESP 22; O2SAT 98
[2024-05-17] MEDS: Lorazepam 2 MG/ML WCH Syringe 0.5 MG IM (23:53)
[2024-05-18 01:00] VITALS: BP 150/79; PULSE 108; RESP 24; O2SAT 99
[2024-05-18] MEDS: Ondansetron ODT 4 MG Tablet 8 MG PO (01:14)
[2024-05-18] MEDS: Morphine 4 MG/ML Syringe IM (01:15)
[2024-05-18 02:25] VITALS: BP 149/76
--- NOTE | 2024-05-18 02:30 | ED.RN ---
report called to [facility] Informed patient will be returning. no further questions
== END 2024-05-18 02:25 | disposition home or self-care (01) ==
PROVIDERS: Emergency Provider Emergency Medicine; PCP Nurse Practitioner Family; Referring Provider Emergency Medicine; Visit Provider Emergency Medicine
DX: M54.50 Low back pain, unspecified (principal); F03.93 Unspecified dementia, unspecified severity, with mood disturbance; F03.94 Unspecified dementia, unspecified severity, with anxiety; I48.91 Unspecified atrial fibrillation; E11.9 Type 2 diabetes mellitus without complications; Z79.4 Long term (current) use of insulin; M62.830 Muscle spasm of back; I10 Essential (primary) hypertension; I25.2 Old myocardial infarction; K21.9 Gastro-esophageal reflux disease without esophagitis; I25.10 Atherosclerotic heart disease of native coronary artery without angina pectoris; E66.9 Obesity, unspecified; E78.00 Pure hypercholesterolemia, unspecified; G25.81 Restless legs syndrome; Z79.01 Long term (current) use of anticoagulants; Z79.84 Long term (current) use of oral 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 drugs; Z79.899 Other long term (current) drug therapy; Z87.891 Personal history of nicotine dependence
CPT/HCPCS: 96372; 99284; A4216

== ENCOUNTER 2024-05-19 09:52 | Emergency (ER) | payer MEDICARE, MEDICAID, SELFPAY ==
[2024-05-19 09:54] VITALS: BP 212/112; PULSE 122; RESP 18; TEMP 37; O2SAT 99; BMI 28.3
--- NOTE | 2024-05-19 10:07 | EX.ED.DYSGE1 ---
HPI <DIDIER Ohara - Last Filed: 05/19/24 15:56> History of Present Illness Chief Complaint: Fall Narrative Narrative: 68-year-old female presents from the [facility] for ongoing low back pain after a fall 1 week ago when she landed on her butt. She states she was seen in the emergency room and had negative imaging and was given morphine. At the [facility] they are giving her Tylenol and Zanaflex but she is having worsening pain this morning. No new falls. She has no lower extremity weakness or numbness or tingling. No saddle anesthesia or bladder bowel incontinence. She is wearing depends because she cannot get out of bed much due to the low back pain. [facility] <DIDIER Ohara - Last Filed: 05/19/24 15:56> [facility] Medical History DURAN (acute kidney injury) Sepsis High anion gap metabolic acidosis Acute kidney injury Candidal intertrigo Acute UTI Recurrent falls Acute delirium Altered level of consciousness Acute encephalopathy Myocardial infarction type 2 Non-ST elevation OK (NSTEMI) Hiatal hernia Irritable bowel Back pain due to injury Restless legs Injury of head and neck High cholesterol Hearing loss, right Bipolar disorder Depression Anxiety GERD (gastroesophageal reflux disease) Former smoker Sleep apnea Atrial fibrillation Migraines Dementia Closed intertrochanteric fracture of left hip Psoriatic arthritis Nonobstructive atherosclerosis of coronary artery Obesity Type 2 diabetes mellitus Takotsubo syndrome Hyperlipidemia Essential (primary) hypertension NSTEMI (non-ST elevated myocardial infarction) (01/06/18) Home Medications ?Medication ?Instructions ?Recorded ?Last Taken ?Type apixaban 2.5 mg tablet (Eliquis) 2.5 mg PO BID blood thinner 02/14/24 Unknown History ergocalciferol (vitamin D2) 1,250 1,250 mcg PO SA vitamin 04/20/24 05/10/24 History mcg (50,000 unit) capsule (Vitamin D2) fexofenadine 180 mg tablet 180 mg PO DAILY allergies 04/20/24 Unknown History glipizide 10 mg tablet 10 mg PO DAILY diabetes 04/20/24 Unknown History atorvastatin 20 mg tablet 20 mg PO QHS cholesterol #0 tabs 04/24/24 05/12/24 Rx carvedilol 3.125 mg tablet 3.125 mg PO BIDCM blood pressure 04/24/24 05/13/24 Rx #0 tabs fluoxetine 40 mg capsule 40 mg PO BID #0 caps 04/24/24 Unknown Rx gabapentin 100 mg capsule 100 mg PO TID nerve pain #0 caps 04/24/24 Unknown Rx pantoprazole 40 mg tablet,delayed 40 mg PO BID reflux #0 tabs 04/24/24 Unknown Rx release tolterodine 4 mg capsule,extended 4 mg PO DAILY #0 caps 04/24/24 Unknown Rx release 24 hr acetaminophen 325 mg tablet 650 mg PO Q4H PRN Fever, pain 05/13/24 05/12/24 History -11/21 buspirone 15 mg tablet 15 mg PO BID mental health 05/13/24 Unknown History donepezil 10 mg tablet 10 mg PO DAILY memory 05/13/24 Unknown History mirabegron 50 mg tablet,extended 50 mg PO DAILY bladder 05/13/24 Unknown History release 24 hr Remove Patch 2 patch topical DAILY@2200 ##0 05/16/24 Unknown Rx aluminum-mag hydroxide-simethicone 30 ml PO Q6H PRN PRN Gastric 05/16/24 Unknown Rx 400 mg-400 mg-40 mg/5 mL oral susp Burning #0 mL (Mag-Al Plus Extra Strength) amlodipine 10 mg tablet 10 mg PO DAILY #60 tabs 05/16/24 Unknown Rx hydroxyzine pamoate 25 mg capsule 25 mg PO TID PRN PRN severe 05/16/24 Unknown Rx anxiety #0 caps insulin lispro 100 unit/mL See Protocol subcut ACHS #0 mL 05/16/24 Unknown Rx subcutaneous pen (Humalog KwikPen (U-100) Insulin) lidocaine 5 % topical patch 2 patch topical DAILY #0 ea 05/16/24 Unknown Rx melatonin 3 mg tablet 3 mg PO QHS PRN PRN Insomnia #0 05/16/24 Unknown Rx tabs potassium chloride 20 mEq 20 meq PO BIDCM #0 tabs 05/16/24 Unknown Rx tablet,extended release(part/cryst) sennosides 8.6 mg-docusate sodium 2 tab PO BID PRN PRN Constipation 05/16/24 Unknown Rx 50 mg tablet (Stimulant Laxative #0 tabs Plus) tizanidine 2 mg tablet 2 mg PO Q8H PRN PRN muscle 05/16/24 Unknown Rx spasms/strain #0 tabs buspirone 7.5 mg tablet 7.5 mg PO BID 05/19/24 Unknown History nitrofurantoin 1 cap PO Q12.TCU 05/19/24 Unknown History monohydrate/macrocrystals 100 mg capsule oxybutynin chloride 15 mg PO 05/19/24 Unknown History tablet,extended release 24 hr tramadol 50 mg tablet 50 mg PO Q6H PRN pain 3 days #12 05/19/24 Unknown Rx tabs Allergy/AdvReac Type Severity Reaction Status Date / Time morphine Allergy Severe Other Verified 05/19/24 12:31 codeine Allergy Itching Verified 05/19/24 09:59 fentanyl AdvReac confusion Verified 05/19/24 09:59 naproxen AdvReac Other Verified 05/19/24 09:59 Family History Mother Cancer skin Father Cancer prostate Surgical History History of back surgery History of carpal tunnel release of both wrists History of hysterectomy History of left heart catheterization (01/07/18) Social History household members: spouse Smoking Status: Former smoker how long ago did patient quit smokin years ago alcohol intake: never substance use type: does not use caffeine: Yes Type: carbonated beverages Number of servings: 1 ROS <DIDIER Ohara - Last Filed: 05/19/24 15:56> ROS ED ROS Narrative Constitutional: Negative for fever, chills, malaise. : Negative for dysuria. Neuro: Negative for motor/sensory dysfunction. Skin: Negative for rash, abscess, or wound. Musc: Negative for joint pain. EXAM <DIDIER Ohara - Last Filed: 05/19/24 15:56> Physical Exam Narrative Exam Narrative: CONST: Patient sitting in no acute distress. EYES: Normal inspection. NECK: Normal inspection. RESP: No respiratory distress, CTAB. CVS: Regular rate and rhythm, no murmur, no gallop. ABD: Soft and nontender, no guarding or rebound, nondistended. Back: Normal inspection, tenderness over lower lumbar spine without step-offs or crepitus. SKIN: Color normal, no rash, warm, dry, intact. EXTREMITIES: Bilateral lower extremities have mild atrophy, able to flex both hips and 5/5 strength in dorsi flexion and plantarflexion. Normal sensation. 2+ DP pulses. No edema or skin changes. No calf tenderness. NEURO: Alert and answering questions appropriately. PSYCH: Normal affect. Const Vital Signs: 05/19/24 09:54 05/19/24 10:03 05/19/24 10:19 Temperature 98.6 F Temperature Source Oral Pulse Rate 122 H Respiratory Rate 18 Respiratory Effort Normal Non-Labored Blood Pressure 212/112 H 210/103 H Blood Pressure Mean 145 138 Pulse Ox 99 99 Oxygen Delivery Method Room Air Room Air 05/19/24 10:30 05/19/24 15:21 Temperature 98.3 F Temperature Source Pulse Rate 122 H 99 Respiratory Rate 18 Respiratory Effort Blood Pressure 170/95 H 170/95 H Blood Pressure Mean 120 120 Pulse Ox 100 100 Oxygen Delivery Method Room Air <Dr. Nicola Yadav DO - Last Filed: 05/19/24 15:36> Physical Exam Const Vital Signs: 05/19/24 09:54 05/19/24 10:03 05/19/24 10:19 Temperature 98.6 F Temperature Source Oral Pulse Rate 122 H Respiratory Rate 18 Respiratory Effort Normal Non-Labored Blood Pressure 212/112 H 210/103 H Blood Pressure Mean 145 138 Pulse Ox 99 99 Oxygen Delivery Method Room Air Room Air 05/19/24 10:30 05/19/24 15:21 Temperature 98.3 F Temperature Source Pulse Rate 122 H 99 Respiratory Rate 18 Respiratory Effort Blood Pressure 170/95 H 170/95 H Blood Pressure Mean 120 120 Pulse Ox 100 100 Oxygen Delivery Method Room Air MDM <DIDIER Ohara - Last Filed: 05/19/24 15:56> [facility] Narrative Medical decision making narrative: History gathered from: Patient, spouse, her daughter Differential includes lumbar contusion, fracture, muscle spasm 68-year-old female had a mechanical fall 1 week ago presents with persistent pain in her lower back and tailbone area. She has had no new injury. She is taking Tylenol and Zanaflex at the [facility]. She was hypertensive and tachycardic on arrival however this did improve after analgesia. She has tenderness over the lower lumbar spine and left lumbar paraspinal muscles. Lower extremities are neurovascularly intact. She has no signs or symptoms concerning for cauda equina syndrome. She was initially treated with IV morphine and Zofran. Morphine had been listed as an allergy but she states this is only when she had morphine and fentanyl together which caused confusion. I spoke with her daughter Joo over the telephone who relayed that the patient's primary care doctor prescribes tramadol as needed but she does not currently have a prescription. According to her [facility] report she was last prescribed tramadol 50 mg on February 27, 2024 Rupal Boyer CNP (her PCP). Repeat CT scan of lumbar spine shows a compression fracture of L1 new since 10/02/2019 MRI, but no acute findings and no change from the CT 1 week ago. Treatment is pain control. I spoke with her primary care doctor who is comfortable with a short course of tramadol and patient was discharged back to her facility in stable condition. Radiography Diagnostic Testing: Clinical Impression(s) from Imaging Studies Lumbar Spine CT 05/19/24 13:00 IMPRESSION: Overall findings appear very similar to the May 13, 2024 CT exam. Marked compression deformity of L1 is new since the 2019 MR Reading [facility] <Dr. Nicola Yadav, DO - Last Filed: 05/19/24 15:36> MDM Radiography Diagnostic Testing: Clinical Impression(s) from Imaging Studies Lumbar Spine CT 05/19/24 13:00 IMPRESSION: Overall findings appear very similar to the May 13, 2024 CT exam. Marked compression deformity of L1 is new since the 2019 MR Reading Location[facility] Treatment and Re-Evaluation :: I have personally performed a face to face assessment of the patient and have reviewed the AHSAN Note. I performed a substantive portion of the visit including all aspects of the following. My roque findings include: History: Patient presents with low back pain that became worse today. Patient states it is constant. Patient describes it as sharp. Patient states it is mainly over her left lumbar paraspinal area. Patient denies any new trauma or injury. Patient states it has been constant since a fall 2 weeks ago. Patient admits to some constipation but denies any incontinence of bowel or bladder. Patient denies any saddle anesthesia. Patient denies any weakness. Exam: Vital signs are stable except for an elevated blood pressure of 212/112 and a tachycardia of 122. Patient is afebrile. Patient is in no acute distress. Musculoskeletal exam reveals tenderness over the left lumbar paraspinal muscles. There is no bony crepitance or step-off. Range of motion was limited in all motions of the lumbar spine secondary to pain. Strength is 5/5 bilaterally in the lower extremities. There are no sensory deficits noted. Pedal pulses are equal bilaterally. Medical Decision Making: Patient has had CT scans done in the past which were negative for any acute abnormality. Since the patient denies any new injury, I do not feel any further imaging is necessary at this time. Patient was given injection of morphine and Zofran. Patient is having persistent pain. Family states that the patient was supposed to have tramadol at the [facility] for her pain. Family states that this works better for her. Family also requested that repeat CT scan of her lumbar spine be obtained. This was ordered. Patient was given a dose of tramadol. CT scan of the lumbar spine was obtained. There is no change compared to CT scan from 05/13/2024. There is a compression fracture of L1. Patient was given a prescription for tramadol. Patient was instructed to follow-up with her primary care physician in 5 to 7 days. Patient and family understood and were agreeable with plan. All questions were answered. Discharge Plan Triage Chief Complaint: Fall ED Midlevel Provider: Monica Alvarado ED Provider: Nicola Yadav Dx/Rx/DC Orders Clinical Impression: Intractable low back pain Instructions: Back Basics: A Healthy Spine Prescriptions: New tramadol 50 mg tablet 50 mg PO Q6H PRN (Reason: pain) 3 Days Qty: 12 0RF No Action Eliquis 2.5 mg tablet 2.5 mg PO BID glipizide 10 mg tablet 10 mg PO DAILY fexofenadine 180 mg tablet 180 mg PO DAILY ergocalciferol (vitamin D2) [Vitamin D2] 1,250 mcg (50,000 unit) capsule 1,250 mcg PO SA Rx Instructions: TAKES EVERY WEEK ON SUNDAY AT BEDTIME fluoxetine 40 mg Capsule 40 mg PO BID Qty: 0 0RF carvedilol 3.125 mg Tablet 3.125 mg PO BIDCM Qty: 0 0RF atorvastatin 20 mg Tablet 20 mg PO QHS Qty: 0 0RF tolterodine 4 mg Capsule,Extended Release 24hr 4 mg PO DAILY Qty: 0 0RF pantoprazole 40 mg Tablet,Delayed Release (Dr/Ec) 40 mg PO BID Qty: 0 0RF gabapentin 100 mg Capsule 100 mg PO TID Qty: 0 0RF donepezil 10 mg tablet 10 mg PO DAILY buspirone 15 mg tablet 15 mg PO BID mirabegron 50 mg tablet extended release 24 hr 50 mg PO DAILY acetaminophen 325 mg Tablet 650 mg PO Q4H PRN (Reason: Fever, pain 1-11/21) lidocaine 5 % Adhesive Patch,Medicated 2 patch topical DAILY Qty: 0 0RF Protocol: *Topical Application Instructions APPLICATION INSTRUCTIONS: back, s/p fall insulin lispro [Humalog KwikPen Insulin] 100 unit/mL Insulin Pen See Protocol subcut ACHS Qty: 0 0RF Protocol: 3. Sliding Scale Insulin Med Dosing Condition: 150-189 mg/dl = 1 unit Condition: 190-229 mg/dl = 2 units Condition: 230-269 mg/dl = 3 units Condition: 270-309 mg/dl = 4 units Condition: 310-349 mg/dl = 5 units Condition: 350-399 mg/dl = 6 units Condition: 400-449 mg/dl = 7 units Condition: Greater than 449 call physician Protocol Text: - Use for Total Daily Dose of Insulin 37-55 units - Obsese, infected, or steroid patients MEDIUM DOSING ALGORITHIM tizanidine 2 mg Tablet 2 mg PO Q8H PRN PRN (Reason: muscle spasms/strain) Qty: 0 0RF sennosides-docusate sodium [Stimulant Laxative Plus] 8.6-50 mg Tablet 2 tab PO BID PRN PRN (Reason: Constipation) Qty: 0 0RF melatonin 3 mg Tablet 3 mg PO QHS PRN PRN (Reason: Insomnia) Qty: 0 0RF potassium chloride 20 mEq Tablet,Er Particles/Crystals 20 meq PO BIDCM Qty: 0 0RF alum-mag hydroxide-simeth [Mag-Al Plus Extra Strength] 400-400-40 mg/5 mL Suspension 30 ml PO Q6H PRN PRN (Reason: Gastric Burning) Qty: 0 0RF hydroxyzine pamoate 25 mg Capsule 25 mg PO TID PRN PRN (Reason: severe anxiety) Qty: 0 0RF Remove Patch 2 patch topical DAILY@2200 Qty: 0 0RF amlodipine 10 mg tablet 10 mg PO DAILY Qty: 60 0RF oxybutynin chloride 15 mg tablet extended release 24hr PO buspirone 7.5 mg tablet 7.5 mg PO BID nitrofurantoin monohyd/m-cryst 100 mg capsule 1 cap PO Q12.TCU Primary Care Provider: Rupal Boyer Referrals: Rupal Boyer, [employer] [Primary Care Provider] - Activity Restrictions/Additional Instructions: Thanks for letting us take care of you today. Your CT scan looks unchanged from 1 week ago. There is a compression fracture of L1 which is new from an MRI you had in 2019 but I am not sure when this happened. It could be old or from a fall a week ago but the treatment for your back pain is the same with pain control. I prescribed 3 days of tramadol. You need to call your primary care doctor for further pain medication as needed. You can also take Tylenol and the tizanidine on your medication list at the [facility]. Print Language: Estonian Disposition Disposition: Home, Self Care
[2024-05-19] MEDS: Ondansetron 4 MG/2 ML Vial IV (10:13)
[2024-05-19] MEDS: Morphine 4 MG/ML Syringe IV (10:14)
[2024-05-19 10:19] VITALS: BP 210/103; O2SAT 99
[2024-05-19 10:30] VITALS: BP 170/95; PULSE 122; O2SAT 100
[2024-05-19] MEDS: Orphenadrine 60 MG/2 ML Ampul IM (11:27)
[2024-05-19] MEDS: traMADol 50 MG Tablet PO (12:43)
--- NOTE | 2024-05-19 12:58 | ED.RN ---
DIDIER Hinton notified that pt's daughter is requesting repeat of CT scan with concern for something being missed. Mary Jane to discuss with Dr. Yadav. Pt's daughter via speakerr royal and pt with at bedside educated on previous CT scan results and discussion had about pt requesting referral from primary care for MRI if pain persists. Also all educated on the importance of physical therapy and not increasing debility by staying in bed and not moving.
--- NOTE | 2024-05-19 13:00 | CT_ITS ---
PROCEDURE: SPINE LUMBAR WITHOUT CONTRAST 05/19/2024 REASON FOR EXAM: Back pain post fall 1 week ago. TECHNIQUE: Lumbar spine CT without contrast. Coronal and Sagittal reconstruction series were provided. One or more dose reduction techniques were used (e.g., Automated exposure control, adjustment of the mA and/or kV according to patient size, use of iterative reconstruction technique COMPARISON: CT May 13, 2024. MR lumbar spine of 03/05/2019 RADIATION DOSE SUMMARY: CTDlvol: 27.9 mGy DLP: 897.73 mGycm FINDINGS: Vertebrae: Possibly acute/subacute vertebral body compression fracture of L1 and L2 as previously noted on the May 13, 2024 CT. There vertebrae plana deformity of L1 lucency lumbar spine MR. 90% compression deformity of L2 is unchanged compared to the 2019 MRI scan. Mild compression of L3 appears stable. Moderate 30% compression deformity of L4 is chronic and stable. Pronounced central compression deformity of the superior endplate of L5 has undergone central compression deformity and appears stable.. Vertebroplasty cement is seen in L5. Vacuum disc phenomenon is seen at L5-S1. Remaining disc heights are fairly well preserved. Alignment: There is central canal narrowing Disc extrusion at L1-L2. Densely sclerotic L1 is some bony encroachment upon the right central canal of mild degree. CT/Spine Lumbar without Contrast IMPRESSION: Overall findings appear very similar to the May 13, 2024 CT exam. Marked compression deformity of L1 is new since the 2019 MR Reading [facility]
--- NOTE | 2024-05-19 13:59 | ED.RN ---
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 when this rn asks patient what she needs help with, pt screams at this patient APPARENTLY YOU CANT DO ANYTHING!! this rn states to pt that she will not yell at staff, that will not be tolerated. pt attempts to grab this rn's arm and this rn moves away from patient. pt states I AM NOT YELLING. IM IN PAIN. this rn states that the provider will be notified of patients increased pain. when this rn speaks to PA, PA states that the patient has already had a dose of morphine, tramadol, and a muscle relaxer. pt is not able to have more medication at this time.
[2024-05-19] MEDS: Acetaminophen 325 MG Tablet 650 MG PO (14:31)
[2024-05-19 15:21] VITALS: BP 170/95; PULSE 99; RESP 18; TEMP 36.8; O2SAT 100
== END 2024-05-19 16:12 | disposition home or self-care (01) ==
PROVIDERS: Emergency Provider Emergency Medicine; PCP Nurse Practitioner Family; Visit Provider Emergency Medicine
DX: M54.50 Low back pain, unspecified (principal); F03.94 Unspecified dementia, unspecified severity, with anxiety; F03.93 Unspecified dementia, unspecified severity, with mood disturbance; I48.91 Unspecified atrial fibrillation; E11.9 Type 2 diabetes mellitus without complications; Z79.4 Long term (current) use of insulin; W19.XXXA Unspecified fall, initial encounter; Y92.129 Unspecified place in nursing home as the place of occurrence of the external cause; K59.00 Constipation, unspecified; I10 Essential (primary) hypertension; I25.2 Old myocardial infarction; K21.9 Gastro-esophageal reflux disease without esophagitis; I25.10 Atherosclerotic heart disease of native coronary artery without angina pectoris; E78.00 Pure hypercholesterolemia, unspecified; G25.81 Restless legs syndrome; Z79.01 Long term (current) use of anticoagulants; Z79.84 Long term (current) use of oral 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 drugs; Z79.899 Other long term (current) drug therapy; Z87.891 Personal history of nicotine dependence
CPT/HCPCS: 72131; 96372; 96374; 96375; 99285; A4216; J2405

== ENCOUNTER 2024-09-01 00:05 | Inpatient (IN) | payer MEDICARE, MEDICAID, SELFPAY ==
[2024-09-01] VITALS (20 sets, daily range): BP systolic 94–161; BP diastolic 56–89; PULSE 89–129; RESP 16–33; TEMP 36.7–38.1; O2SAT 95–100; BMI 24.1; BMI 25.0
--- NOTE | 2024-09-01 00:26 | EKG12_ITS ---
Test Reason : ALT LOC Blood Pressure : */* mmHG Vent. Rate : 124 BPM Atrial Rate : 124 BPM P-R Int : 140 ms QRS Dur : 84 ms QT Int : 352 ms P-R-T Axes : 39 -75 70 degrees QTcB Int : 505 ms Sinus tachycardia Left axis deviation Minimal voltage criteria for LVH, may be normal variant ( Clyde product ) Inferior infarct , age undetermined Anterior infarct , age undetermined Abnormal ECG Confirmed by Fabián Azar ([id number]), state editor CAIT VIDES ([id number]) on 09/02/2024 1:13:44 PM Referred By: ANA MARÍA Confirmed By: Fabián Azar
--- NOTE | 2024-09-01 00:26 | CT_ITS ---
PROCEDURE: BRAIN/HEAD WITHOUT CONTRAST 09/01/2024 REASON FOR EXAM: ALTERED MENTAL STATUS TECHNIQUE: BRAIN/HEAD WITHOUT CONTRAST Coronal and Sagittal reconstruction series were provided. One or more dose reduction techniques were used (e.g., Automated exposure control, adjustment of the mA and/or kV according to patient size, use of iterative reconstruction technique. RADIATION DOSE SUMMARY: CTDlvol: 65 mGy DLP: 1778 mGycm COMPARISON: 05/13/2024 FINDINGS: Diffuse atrophy. Arterial calcifications. Mild white matter change. No acute abnormal brain densities. No intracranial hemorrhage. No hydrocephalus or midline shift. No acute scalp or skull pathology. Bilateral lens extraction. Clear sinuses. CT/Brain/Head without Contrast IMPRESSION: No acute findings Reading Location: [place] [address]
--- NOTE | 2024-09-01 00:28 | EX.ED.DYSGE1 ---
HPI History of Present Illness Chief Complaint: Alt LOC Informant: EMS Narrative Narrative: EMS brings this 68-year-old female from home who is altered, last known well is unknown. Apparently she pressed her own medical alert button. EMS states she smells of urine, staff state prior to my evaluation that they removed her diaper and it was in pieces stuck to her rear which is erythematous, as if the diaper has been soaked in urine and she had been sitting in it for a long time. The EMS squad said that her said she gets like this from time to time but had no intent on calling 911 or bring her to the hospital. History is impossible from the patient due to her being so altered. [facility] Medical History DURAN (acute kidney injury) Sepsis High anion gap metabolic acidosis Acute kidney injury Candidal intertrigo Acute UTI Recurrent falls Acute delirium Altered level of consciousness Acute encephalopathy Myocardial infarction type 2 Non-ST elevation [place] (NSTEMI) Hiatal hernia Irritable bowel Back pain due to injury Restless legs Injury of head and neck High cholesterol Hearing loss, right Bipolar disorder Depression Anxiety GERD (gastroesophageal reflux disease) Former smoker Sleep apnea Atrial fibrillation Migraines Dementia Closed intertrochanteric fracture of left hip Psoriatic arthritis Nonobstructive atherosclerosis of coronary artery Obesity Type 2 diabetes mellitus Takotsubo syndrome Hyperlipidemia Essential (primary) hypertension NSTEMI (non-ST elevated myocardial infarction) (01/06/18) Home Medications ?Medication ?Instructions ?Recorded ?Last Taken ?Type apixaban 2.5 mg tablet (Eliquis) 2.5 mg PO BID blood thinner 02/14/24 Unknown History ergocalciferol (vitamin D2) 1,250 1,250 mcg PO SA vitamin 04/20/24 05/10/24 History mcg (50,000 unit) capsule (Vitamin D2) fexofenadine 180 mg tablet 180 mg PO DAILY allergies 04/20/24 Unknown History glipizide 10 mg tablet 10 mg PO DAILY diabetes 04/20/24 Unknown History atorvastatin 20 mg tablet 20 mg PO QHS cholesterol #0 tabs 04/24/24 05/12/24 Rx carvedilol 3.125 mg tablet 3.125 mg PO BIDCM blood pressure 04/24/24 05/13/24 Rx #0 tabs fluoxetine 40 mg capsule 40 mg PO BID #0 caps 04/24/24 Unknown Rx gabapentin 100 mg capsule 100 mg PO TID nerve pain #0 caps 04/24/24 Unknown Rx pantoprazole 40 mg tablet,delayed 40 mg PO BID reflux #0 tabs 04/24/24 Unknown Rx release tolterodine 4 mg capsule,extended 4 mg PO DAILY #0 caps 04/24/24 Unknown Rx release 24 hr acetaminophen 325 mg tablet 650 mg PO Q4H PRN Fever, pain 05/13/24 05/12/24 History -11/21 buspirone 15 mg tablet 15 mg PO BID mental health 05/13/24 Unknown History donepezil 10 mg tablet 10 mg PO DAILY memory 05/13/24 Unknown History mirabegron 50 mg tablet,extended 50 mg PO DAILY bladder 05/13/24 Unknown History release 24 hr Remove Patch 2 patch topical DAILY@2200 ##0 05/16/24 Unknown Rx aluminum-mag hydroxide-simethicone 30 ml PO Q6H PRN PRN Gastric 05/16/24 Unknown Rx 400 mg-400 mg-40 mg/5 mL oral susp Burning #0 mL (Mag-Al Plus Extra Strength) amlodipine 10 mg tablet 10 mg PO DAILY #60 tabs 05/16/24 Unknown Rx hydroxyzine pamoate 25 mg capsule 25 mg PO TID PRN PRN severe 05/16/24 Unknown Rx anxiety #0 caps insulin lispro 100 unit/mL See Protocol subcut ACHS #0 mL 05/16/24 Unknown Rx subcutaneous pen (Humalog KwikPen (U-100) Insulin) lidocaine 5 % topical patch 2 patch topical DAILY #0 ea 05/16/24 Unknown Rx melatonin 3 mg tablet 3 mg PO QHS PRN PRN Insomnia #0 05/16/24 Unknown Rx tabs potassium chloride 20 mEq 20 meq PO BIDCM #0 tabs 05/16/24 Unknown Rx tablet,extended release(part/cryst) sennosides 8.6 mg-docusate sodium 2 tab PO BID PRN PRN Constipation 05/16/24 Unknown Rx 50 mg tablet (Stimulant Laxative #0 tabs Plus) tizanidine 2 mg tablet 2 mg PO Q8H PRN PRN muscle 05/16/24 Unknown Rx spasms/strain #0 tabs nitrofurantoin 1 cap PO Q12.TCU 05/19/24 Unknown History monohydrate/macrocrystals 100 mg capsule oxybutynin chloride 15 mg PO 05/19/24 Unknown History tablet,extended release 24 hr tramadol 50 mg tablet 50 mg PO Q6H PRN pain 3 days #12 05/19/24 Unknown Rx tabs Allergy/AdvReac Type Severity Reaction Status Date / Time morphine Allergy Severe Other Verified 09/01/24 00:06 codeine Allergy Itching Verified 09/01/24 00:06 fentanyl AdvReac confusion Verified 09/01/24 00:06 naproxen AdvReac Other Verified 09/01/24 00:06 Family History Mother Cancer skin Father Cancer prostate Surgical History History of back surgery History of carpal tunnel release of both wrists History of hysterectomy History of left heart catheterization (01/07/18) Social History household members: spouse Smoking Status: Former smoker how long ago did patient quit smokin years ago alcohol intake: never substance use type: does not use caffeine: Yes Type: carbonated beverages Number of servings: 1 ROS ROS ED Review of Systems ROS Unobtainable: due to mental status EXAM Physical Exam Const Vital Signs: 09/01/24 00:06 09/01/24 00:09 09/01/24 00:49 Temperature 98.2 F 98.2 F Temperature Source Axillary Axillary Pulse Rate 129 H 129 H Respiratory Rate 22 H 22 H Blood Pressure 131/69 H 131/69 H Blood Pressure Mean 89 89 Pulse Ox 95 95 Oxygen Delivery Method Room Air Room Air Room Air 09/01/24 01:00 09/01/24 02:00 09/01/24 02:00 Temperature 100.6 F H 100.2 F H 100.1 F H Temperature Source Core Core Pulse Rate 118 H 118 H 119 H Respiratory Rate 22 H 22 H 22 H Blood Pressure 112/89 H 154/84 H 154/84 H Blood Pressure Mean 96 107 107 Pulse Ox 99 98 97 Oxygen Delivery Method Room Air Room Air Positive well nourished and well developed General Appearance ED: well developed and NAD HEENT Reports dry mucous membranes normocephalic and atraumatic Mouth ED: Yes dry mucous membranes Mouth: dry mucous membranes Eyes PERRL and EOMs intact bilaterally Neck full ROM and supple Resp normal respiratory effort and clear to auscultation bilaterally Cardio regular rate, regular rhythm and no murmurs Rate: tachycardic GI non-distended GI Narrative: Soft nondistended abdomen, but with palpation patient grunting and involuntarily guarding diffusely. No pulsatile mass. Auscultation: normoactive bowel sounds Palpation: soft Back/Spine Back/Spine Narrative: Diffuse erythema sacral area without breakdown of the skin, possible stage I decubitus ulceration, with flaking of her diaper sticking to her skin throughout this area. Extremity normal to inspection General Extremety ED: Negative for edema, pulses abnormal or tenderness General Extremity: Negative for edema or pulses abnormal Neuro no sensory deficits noted Neuro Narrative: Moaning, does not follow commands, but is moving all 4 extremities, attempting to get out of bed during evaluation. GCS 4/5/2 = 11. She is protecting her airway Sensorium / Orientation: awake, alert and orientation impaired Motor Exam: strength 5/5 throughout Skin Skin Narrative: Erythema throughout sacral area no other rashes or lesions noted. No open wounds in this area. Sepsis Attestation Sepsis Alert: Yes Sepsis Attestation: Agree w/Sepsis Date exam was performed: 09/01/24 Time exam was performed: 01:00 Possible Source of Sepsis: Unknown Sepsis Organ Dysfunction Criteria Present: Lactic Acid > 2 mmol/L, Serum CO2 < 20 mmol/L (on BMP) and New/Unexplained change in mental status Fluid Resuscitation Fluid resuscitation indicated?: Yes Fluid Resuscitation ordered: 30 ml/kg fluid bolus ordered Sepsis Note Date exam was performed: 09/01/24 Time exam was performed: 01:55 Sepsis Attestation: Sepsis re-evaluation was performed (no hypotension. tachycardia improved. perfusing distal extremities x 4.) MDM MDM MDM Narrative Medical decision making narrative: Patient tachycardic, her EKG shows LAFB and sinus tachycardia no acute injury, septic workup obtained including a Lopez catheter for urine. She was given a liter of fluid bolus in the meantime. Urine specimen from Lopez catheter shows positive multiple signs of infection and pyuria, sent for culture and started on Rocephin. I reviewed prior urine cultures, she has never tested positive for Pseudomonas in the past, so Rocephin 2 g should be adequate for empiric coverage for now. Labs noted with lactate 2.2, consistent with sepsis, she was never hypotensive and not in shock, but we did give her second liter of IV fluid, which is more than 30 cc/kg for her, and treated her fever with rectal Tylenol. Her tachycardia improved. She has multiple elevated liver enzymes including her total bilirubin, her creatinine is elevated. CT of the head on my interpretation negative for acute hemorrhage, and CT of the abdomen/pelvis on my interpretation shows multiple bilateral renal cysts but no signs of hydronephrosis, perinephric stranding, or other acute intra-abdominal abnormality. Reviewed the report, which reveals that the patient has an age-indeterminate L3 vertebral body fracture. Discussed with hospitalist for ICU admission. Of note, after half of the Rocephin infused into her right forearm IV, there is a red streak that follows the vein almost to the elbow. It is nontender. It is not bothering the patient. She has no other systemic issues or rashes. I am corwin continue to monitor it and give the patient a little bit of Benadryl. On reexamination the streaking is gone and she had no other reaction. Blood pressure remained stable. Nurses were concerned that this small distal IV was the only access they could get. Therefore I placed a central line since the patient is septic, see the procedure note. Lab Data Attestation: I reviewed the patient's lab results. Labs: Laboratory Results - last 24 hr 09/01/24 09/01/24 00:18 00:46 WBC 23.7 H RBC 6.42 H Hgb 18.4 H* Hct 54.4 H MCV 84.7 MCH 28.7 MCHC 33.8 RDW Std Deviation 40.5 RDW Coeff of Gerhard 13.5 Plt Count 434 MPV 9.6 Immature Gran % (Auto) 0.600 Neut % (Auto) 84.3 H Lymph % (Auto) 8.5 L [place] % (Auto) 6.3 Eos % (Auto) 0.0 Baso % (Auto) 0.3 Absolute Neuts (auto) 20.0 H Absolute Lymphs (auto) 2.01 Nucleated RBC % 0 PT 15.1 H INR 1.2 APTT 26.2 Sodium 141 Potassium 4.0 Chloride 100 Carbon Dioxide 16.4 L Anion Gap 25 H BUN 30 H Creatinine 1.38 H Estim Creat Clear Calc 31.38 L Est GFR (MDRD) Non-Af 41 L BUN/Creatinine Ratio 21.8 H Glucose 244 H Lactic Acid 2.2 H* Calcium 11.2 H Total Bilirubin 1.40 H AST 53 H ALT 49 H Alkaline Phosphatase 166 H Total Creatine Kinase 237 H Troponin T High Sens Cancelled Total Protein 9.4 H Albumin 5.0 H Globulin 4.4 H Albumin/Globulin Ratio 1.1 Urine Color Yellow Urine Clarity Turbid Urine pH 6.0 Ur Specific Sanders 1.015 Urine Protein 500 H Urine Glucose (UA) Normal Urine Ketones 50 H Urine Occult Blood 150 H Urine Nitrite Positive H Urine Bilirubin Negative Urine Urobilinogen Normal Ur Leukocyte Esterase 500 H Urine RBC 0-5 SEEN Urine WBC >100 SEEN Ur Squamous Epith Cells 5-10 SEEN Ur Transition Epith Cell 0-5 SEEN Ur Renal Epithelial Cell 5-10 SEEN Urine Bacteria 4+ Urine Mucus 0 SEEN Radiography Diagnostic Testing: Clinical Impression(s) from Imaging Studies Brain CT 09/01/24 00:26 IMPRESSION: No acute findings Reading Location: [facility] Abdomen/Pelvis CT 09/01/24 00:29 IMPRESSION: Interval development of an L3 vertebral body fracture, correlate as to acuity. No acute abdominopelvic findings are otherwise noted. Reading Location: [facility] Chest X-Ray 09/01/24 01:05 IMPRESSION: No acute chest findings. Reading Location: [facility] Rhythm Strip Rhythm Strip: Sinus Tach Rate: 125 Ectopy: None EKG Initial EKG: Attestation: I personally reviewed and interpreted this EKG as follows: Interpretation: No Acute Injury Pattern, Sinus Tachycardia and LAFB Comments: Borderline long QTc Management Discussion w/another healthcare provider: Hospitalist Procedures Other Procedures Procedure(s): Central line placement: Central line indicated due to poor venous access and critical illness. Informed consent implied due to encephalopathy and urgent situation. Left subclavian and internal jugular vein sites prepped and draped in a sterile fashion, full body sheet placed, locally anesthetized with a total of 6 cc of plain 1% lidocaine, attempted several times at left subclavian vein site, barely was able to get any blood, and on multiple attempts at threading the wire, continue to run into resistance suspicious for extravascular placement, so instead of further attempts here, we did so at the left internal jugular vein site under ultrasound guidance and found dark red nonpulsatile blood via finder needle under direct visualization using sterile vascular ultrasound with Doppler and visualizing needle entering the vein. 16 cm triple-lumen catheter placed via modified Seldinger technique, all 3 ports pauly back dark red nonpulsatile blood and flushed easily. Chlorhexidine disc placed at the site of entry against the skin, sutured into place, and dressed with a Tegaderm. 1 view chest x-ray confirms placement and no sign of pneumothorax/complication on my interpretation. Tolerated well with nursing assisting, no complications. Critical Care Time Critical Care Time: Yes Critical care time (excluding procedures): 30-74 minutes (36 min), Including time spent:, Discussing w/Patient &/or Family/Salon/Spa Manager, Discussing w/Consultants, Arranging Admission or Transfer and Performing Direct Patient Care at Bedside Discharge Plan Dx/Rx/DC Orders Clinical Impression: Sepsis, Acute encephalopathy, Acute UTI, Decubitus ulcer of sacral region, stage 1, Acute renal insufficiency, Closed L3 vertebral fracture Disposition Disposition: Acute Care Hospital [facility] Discharge Date/Time: 09/01/24 03:45
--- NOTE | 2024-09-01 00:29 | CT_ITS ---
PROCEDURE: ABDOMEN/PELVIS WITHOUT CONT 09/01/2024 REASON FOR EXAM: POSSIBLY GUARDING ON EXAM; ENCEPHALOPATHIC TECHNIQUE: ABDOMEN/PELVIS WITHOUT CONT Noncontrast technique limits evaluation of the abdominal and pelvic viscera. Coronal and Sagittal reconstruction series were provided. One or more dose reduction techniques were used (e.g., Automated exposure control, adjustment of the mA and/or kV according to patient size, use of iterative reconstruction technique). RADIATION DOSE SUMMARY: CTDlvol: 65 mGy DLP: 1778 mGycm COMPARISON: 05/14/2024 FINDINGS: Under aerated lung bases. Normal heart size. Unremarkable gallbladder, liver, pancreas, spleen, adrenal glands. 2 cm splenic hypodensity favoring benign etiology. Bilateral simple renal cysts. No hydronephrosis or ureteral stone. Catheter tip in decompressed bladder. Status post hysterectomy. No retroperitoneal or pelvic adenopathy. No free air. Nondistended bowel. Multiple diverticula. No acute large bowel findings. Lumbar spine degeneration. Status post ventral hernia repair. Status post left THR. Status post right femoral neck fracture with orthopedic repair. Old pelvic fractures. Old rib fractures. Multilevel old thoracic and lumbar spine compression deformities status post L5 kyphoplasty. Interval development of an L3 vertebral body fracture which may be acute. CT/Abdomen/Pelvis without Cont IMPRESSION: Interval development of an L3 vertebral body fracture, correlate as to acuity. No acute abdominopelvic findings are otherwise noted. Reading Location: [place] [id number]
[2024-09-01 00:47] LABS: Hematocrit 54.4 % (37-47); Immature Granulocytes Count 0.140 X10^3/uL (0.0-0.0); Mean Corp Hgb Conc 33.8 g/dL (32-36); Mean Corpuscular Volume 84.7 fL (81-99); Mean Platelet Vol. 9.6 fl (6.2-12.0); NRBC Flagged by Analyzer 0 % (0-5); Platelet Count 434 K/mm3 (150-450); RBC Distribution Width CV 13.5 % (11.6-14.6); RBC Distribution Width SD 40.5 fl (35.1-43.9); Red Blood Count 6.42 M/mm3 (4.2-5.4); White Blood Count 23.7 K/mm3 (4.4-11.0)
[2024-09-01 00:52] LABS: Mucous, Urine 0 SEEN /hpf (<or=2+)
[2024-09-01 00:52] LABS: Partial Thromboplast Time 26.2 Seconds (24.1-36.2); Prothrombin Time (Protime)PT. 15.1 SECONDS (11.7-14.9)
[2024-09-01] MEDS: 0.9% Normal Saline (1000mL) 1,000 ML 999 ML IV ×2 (00:55→02:10)
[2024-09-01 00:56] LABS: Hemoglobin 18.4 g/dL (12.0-15.0)
[2024-09-01 00:58] LABS: Color, Urine Yellow (Yellow); Glucose, Dipstick Normal (Normal); Ketone-Dipstick 50 mg/dl (Negative); Leukocyte Esterase-Dipstick 500 /ul (Negative); Nitrite-Dipstick Positive (Negative); Occult Blood-Urine 150 /ul (Negative); Protein-Dipstick 500 mg/dl (Negative); Specific Gravity, Urine 1.015 (1.002-1.030); Urine Bilirubin Dipstick Negative (Negative)
--- NOTE | 2024-09-01 01:05 | RAD_ITS ---
PROCEDURE: CHEST 1 VIEW (PORTABLE) 09/01/2024 REASON FOR EXAM: ALTERED LOC TECHNIQUE: Frontal view of the chest. COMPARISON: 05/16/2024 FINDINGS: Scoliosis. Normal heart size. Well inflated lungs. No consolidation, effusion, or pneumothorax. Bilateral old rib fractures. RAD/Chest 1 View (Portable) IMPRESSION: No acute chest findings. Reading Location: [place] [address]
[2024-09-01 01:10] LABS: Red Blood Cells-Urine 0-5 SEEN /hpf (0-5)
[2024-09-01 01:11] LABS: Squamous Epithelial Cells - UA 5-10 SEEN /hpf (5-10); Transitional Epithelial - Ur 0-5 SEEN /hpf (0-5)
[2024-09-01 01:33] LABS: CPK Total, Creatine Kinase 237 U/L (24-195)
[2024-09-01 01:35] LABS: AST(SGOT) 53 U/L (<=31); Alanine Aminotransfer ALT/SGPT 49 U/L (<=34); Albumin, Serum 5.0 g/dL (3.4-4.8); Alkaline Phosphatase 166 U/L (35-104); Anion Gap 25 (5-15); BUN 30 mg/dL (4-19); BUN/Creat Ratio 21.8 RATIO (10-20); Calcium,Total 11.2 mg/dL (7.6-11.0); Carbon Dioxide 16.4 mmol/L (21.0-32.0); Chloride 100 mmol/L (98-108); Estimated Creatinine Clearance 31.38 ml/min (50-250); Globulin 4.4 g/dL (2.2-4.2); Glucose 244 mg/dL (70-99); Potassium 4.0 mmol/L (3.3-5.1)
--- OUTSIDE RECORDS SUMMARY | 2024-09-01 01:44 | XMS RPT_ITS | CCD ---
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 Cici Calderon Primary Care Provider 1([facility])[phone] Dr. Cici Calderon Referring Provider 1([facility])[phone] DIDIER Fowler Attending Provider 1([facility])[phone] Dr. Ethan Hayes Attending Provider 1([facility])[phone] ORESTES Boyer Primary Care Provider 1([facility])[phone] Dr. Nico Arce Emergency Provider 1([facility])[phone] Dr. Home Valverde Admit Provider 1([facility])[phone] Home Valverde Referring Provider 1([facility])[phone] Dr. Home Valverde Other Provider 1([facility])[phone] John Short Attending Provider 1([facility])[phone] Dr. John Short Other Provider 1([facility])[phone] Home Valverde Attending Provider 1([facility])[phone] Dr. Kanwal Aguilar Attending Provider 1([facility])[phone] Dr. Tamiko Quigley Attending Provider 1([facility])[phone]. Tamiko Quigley Other Provider Dr. Josue Ivan Other Provider 1([facility])[phone] Josephine Lutz Other Provider 1([facility])[phone] Dr. Kassandra Fountain Other Provider Dr. Gerry Austin Other Provider Dr. Regina Oden Other Provider Dr. Home Miller Attending Provider Paul, Dr. Bhat Other Provider Dr. Filemon Coffman Other Provider Dr. Atul Quezada Other Provider Dr. Dann Linn Other Provider Dr. Floyd Kelley Other Provider Unavailab lance Wyatt WALLPAPER PRINTER HELPER, WALLPAPER PRINTER HELPER-C Cindy Other Provider Dr. Dann Linn Attending Provider Dr. Prem Toro Other Provider Cici Calderon MD Primary Care Provider Dr. Home Valverde Referring Provider Cici Calderon Primary Care Provider Cici Calderon Primary Care Provider ESTEBAN HAWLEY Attending Unavailable ESTEBAN HAWLEY Admitting Unavailable NICOLA ADHIKARI Consulting Unavailable WILFRID BENDER Consulting Unavailable JOHANNE DEUTSCH Consulting Unavailable Unavailable Primary Care Provider Unavailabl e Sharla BRITTONP, Rudy Primary Care Provider Sharla, WALLPAPER PRINTER HELPER-C Rudy Primary Care Provider Dr. Marcos Hoffman Emergency Provider Dr. Anuja Noel Admit Provider Unavailalpa e Dr. Anuja Noel Attending Provider Unavail able Dr. Anuja Noel Other Provider Unavailabl e Dr. Tamiko Quigley Other Provider Dr. Tamiko Quigley Attending Provider Dr. Christopher Huang Attending Provider Dr. Christopher Huang Other Provider Dr. Anuja Murcia Attending Provider Unavailable Dr. Anuja Murcia Other Provider Unavailable Dr. Miguel Chapman Other Provider [phone] Kvng, Cici A Primary Care Provider ESTEBAN HAWLEY Attending Unavailable ESTEBAN HAWLEY Admitting Unavailable ADHIKARI, NICOLA Consulting Unavailable WILFRID BENDER Consulting Unavailable IVA, JOHANNE Consulting Unavailable NONE, PCP Referring Unavailable KVNG, CICI Primary Care Unavailable KVNG, CICI Primary Care Unavailable SOFIA SENA Admitting Unavailable PETRA RIVERS Consulting Unavailable MIGUEL CHAPMAN Attending Unavailable RYAN, LATHA Consulting Unavailable WEINER, CICI Attending Unavailable KVNG, CICI Primary Care Unavailable ADHIKARI, NICOLA Attending Unavailable SHARLA, RUDY Primary Care Unavailable PHYLLIS GUEVARA Referring Unavailable KVNG, CICI Primary Care Unavailable YIFAN LOZANO Referring Unavailable SHARLA, RUDY Primary Care Unavailable WEINER, CICI Referring Unavailable KVNG, CICI Primary Care Unavailable ANUJA WOLFE Attending Unavailable YANETH, ANUJA Attending Unavailable JOAQUIN, JOHN Attending Unavailable PHYLLIS GUEVARA Attending Unavailable KVNG, CICI Primary Care Unavailable Sharla, WALLPAPER PRINTER HELPER-C [place] Primary Care Provider [phone] Dr. Marcos Hoffman Emergency Provider Dr. Anuja Noel Admit Provider Unavailabl Dr. Anuja Daugherty Attending Provider Unavail able Dr. Anuja Noel Other Provider Unavailalpa e Dr. Tamiko Quigley Other Provider Dr. Tamiko Quigley Attending Provider Dr. Christopher Huang Attending Provider Dr. Christopher Huang Other Provider Dr. Anuja Murcia Referring Provider Unavailable Dr. Anuja Murcia Attending Provider Unavailable Dr. Anuja Murcia Other Provider Unavailable Dr. Miguel Chapman Other Provider [phone] Sharla WALLPAPER PRINTER HELPER-C, [place] Primary Care Provider [phone] Dr. Yifan Zepeda DO Emergency Provider [phone] Lauren WRIGHT, Dr. Kanwal Hernandez Admit Provider Dr. aKnwal Aguilar MD Other Provider Hakeem WRIGHT, Dr. Sweeney Attending Provider Tony WRIGHT, Dr. Moreno Other Provider [phone] Freddy WRIGHT, Dr. Long Attending Provider Aakash WRIGHT, Dr. Ruano Other Provider China WRIGHT, Dr. Kwong Other Provider Augustus WRIGHT, Dr. Colbert Other Provider Dr. Atul Quezada DO Other Provider Hemant WRIGHT, Dr. Anuja Astudillo Other Provider [phone] Vanessa WRIGHT, Dr. Zaidi Other Provider [phone] Ata WRIGHT, Dr. Valle Other Provider Chadd WRIGHT, Dr. Foss Other Provider Sandy WRIGHT, Dr. Pizano Other Provider [phone] Vince WRIGHT, Dr. Tidwell Other Provider [phone] Lawson WRIGHT, Dr. Cummings Other Provider Corie WRIGHT, Dr. Richards Other Provider Unavailabl cris Palm MD, Dr. Dan Other Provider Alaina WRIGHT, Dr. Osborne Other Provider [phone] Delphine WRIGHT, Dr. Alegria Other Provider Dr. Saad Hoang DO Other Provider [phone] Cornelius Birch MD Other Provider Dr. Landon Nelson DO Other Provider Sumit WRIGHT, Dr. Pena Other Provider Travis WRIGHT, Dr. Florez Other Provider [phone] Zahra Palacio MD Other Provider Lauren WRIGHT, Dr. Kanwal Hernandez Referring Provider Dr. Atul Quezada DO Attending Provider Dr. Zahra Palacio MD Referring Provider Reina ESQUIVEL, Dr. White Attending Provider Justice WRIGHT, Dr. Mack Attending Provider Denise WRIGHT, Dr. Thomason Referring Provider Lund WALLPAPER PRINTER HELPER-C, [place] Referring Provider Claude WRIGHT, Dr. Walsh Emergency Provider Dann ESQUIVEL, Dr. Morrison Admit Provider Dann ESQUIVEL, Dr. Morrison Other Provider Kellie WRIGHT, Dr. Jordana Cooney Attending Provider Dann ESQUIVEL, Dr. Morrison Attending Provider Stefan WRIGHT, Dr. Rodríguez Other Provider [phone] Kellie WRIGHT, Dr. Jordana Cooney Referring Provider Kellie WRIGHT, Dr. Jordana Cooney Other Provider Mohan WRIGHT, Dr. Diaz Emergency Provider Lauren WRIGHT, Dr. Kanwal Hernandez Attending Provider Deja ESQUIVEL, Dr. Paiz Attending Provider Chris WRIGHT, Dr. Warren Other Provider Anisha WRIGHT, Dr. Moran Other Provider Deja ESQUIVEL, Dr. Paiz Other Provider Tony WRIGHT, Dr. Moreno Attending Provider Lund WALLPAPER PRINTER HELPER-C, [place] Primary Care Provider Reina ESQUIVEL, Dr. White Attending Provider Aakash WRIGHT, Dr. Ruano Other Provider China WRIGHT, Dr. Kwong Other Provider Augustus WRIGHT, Dr. Colbert Other Provider Damien ESQUIVEL, Dr. Pollard Other Provider Hemant WRIGHT, Dr. Anuja Astudillo Other Provider Vanessa WRIGHT, Dr. Zaidi Other Provider Ata WRIGHT, Dr. Valle Other Provider Chadd WRIGHT, Dr. Foss Other Provider Sandy WRIGHT, Dr. Pizano Other Provider [phone] Vince WRIGHT, Dr. Tidwell Other Provider [phone] Lawson WRIGHT, Dr. Cummings Other Provider Corie WRIGHT, Dr. Richards Other Provider Unavailabl cris Palm MD, Dr. Dan Other Provider Alaina WRIGHT, Dr. Osborne Other Provider Delphine WRIGHT, Dr. Alegria Other Provider Natalya ESQUIVEL, Dr. Nash Other Provider Queta WRIGHT, Dr. Shields Other Provider Omar ESQUIVEL, Dr. Navarrete Other Provider Sumit WRIGHT, Dr. Pena Other Provider Travis WRIGHT, Dr. Florez Other Provider Dr. Atul Quezada DO Attending Provider [phone] Lauren WRIGHT, Dr. Kanwal Hernandez Admit Provider Lauren WRIGHT, Dr. Kanwal Hernandez Other Provider Lauren WRIGHT, Dr. Kanwal Hernandez Referring Provider Adria Montenegro MD Emergency Provider Dr. Anuja Murcia MD Attending Provider Unavaila ble Divina WRIGHT, Dr. Cespedes Other Provider Unavailable Lorena WRIGHT, Dr. Barba Other Provider Kvng WRIGHT, Cici Ruano Primary Care Provider Sharla WALLPAPER PRINTER HELPER, Rudy Primary Care Provider [phone] Sharla, Rudy Primary Care Unavailable Sharita Azar Attending Unavailable Sharla, Rudy Primary Care Unavailable Sharla, Rudy Referring Unavailable Christopher Huang Attending Unavailable Koram, Jordana Ivet Attending Unavailable Dann, Tamiko Consulting Unavailable Dann, Tamiko Admitting [facility] Koram, Jordana Ivet Consulting Unavailable Dann, Tamiko Admitting Unavailable Dann, Tamiko Consulting [facility] Unavailable Koram, Jordana Ivet Attending Unavailable [facility] Unavailable Kanwal Aguilar Consulting Unavailable Kanwal Aguilar Admitting Unavailable Zahra Palaico Attending Unavailable Tony, Tiffanie Consulting Unavailalpa e Katlyn, Nicola Consulting [facility] Unavailable Sharita Azar Attending Unavailable Jopperi, Nicola Admitting Unavailable Belal, Farouk Consulting Unavailable Ronny Romo Consulting Unavailable Jopperi, Nicola Admitting Unavailable Jopperi, Nicola Consulting Unavailable [facility] Primary Care Unavailable Ronny Romo Attending Unavailable Belal, Farouk Consulting Unavailable VorAbhijeet martinezga Consulting Unavailable [facility] Primary Care Unavailable Zora Sunshine Referring Unavailable [facility] Attending Unavailable Tony, Nagapradee Consulting UnavailZahra Ortega Attending Unavailable [facility] Unavailable Kanwal Aguilar Admitting Unavailable Alden Finn Consulting Unavailable Varghese Atkinson Consulting Unavailable Filemon Coffman Consulting Unavailable Atul Quezada Consulting Unavailable Anuja Marcos Consulting Unavailable Dejuan Mendez Consulting Unavailable Leonard Berumen Consulting Unavailable Prudence Florentino Consulting UnavailHarinder Bhardwaj Consulting Unavailable Yaw Clarke Consulting Unavailable Zoila Pathak Consulting Unavailable Aljundi, Lamia Consulting Unavailable Néstor, Sy Consulting Unavailable Irukulla, Dylon Consulting Unavailable Delphine, Raji Consulting Unavailable Dhesi, Saad Consulting Unavailable Cornelius Birch Consulting Unavailable Landon Nelson Consulting Unavailable Jean Arana Consulting Unavailable Gautam Robles Consulting Unavailable Kanwal Aguilar Consulting Unavailable Zahra Palacio Consulting Unavailable Atul Quezada Attending Unavailable Zahra Palacio Referring Unavailable Tamiko Quigley Attending Unavailable Atul Quezada Attending Unavailable Kellie, Jordana Ivet Referring Unavailable Alden Finn Consulting Unavailable China, Varghese Consulting Unavailable Filemon Coffman Consulting Unavailable Atul Quezada Consulting Unavailable Anuja Marcos Consulting Unavailable Dejuan Mendez Consulting Unavailable Ata, Leonard Consulting Unavailable Habtegebriel, Prudence Consulting Unavailab le Dand, Harinder Consulting Unavailable Vince, Yaw Consulting Unavailable Marcos Aviles Consulting Unavailable Zoila Pathak Consulting Unavailable Aljundi, Lamia Consulting Unavailable Néstor, Sy Consulting Unavailable Irukulla, Dylon Consulting Unavailable Delphine, Raji Consulting Unavailable Dhesi, Saad Consulting Unavailable Cornelius Birch Consulting Unavailable Fernstrom, Landon Consulting Unavailable Sumit, Jean Consulting Unavailable Gautam Robles Consulting Un[facility] Unavailable Kanwal Aguilar L Admitting Unavailable Kanwal Aguilar L Consulting Unavailable Anuja Murcia Attending Unavailable Jameson Carrillo Consulting Unavailable Anuja Murcia Consulting [facility] Unavailable Kanwal Aguilar Attending Unavailable Atul Quezada Attending Unavailable [facility] Unavailable Lauren Kanwal L Admitting Unavailable Kanwal Aguilar L Referring Unavailable Alden Finn Consulting Unavailable Varghese Atkinson Consulting Unavailable Filemon Coffman Consulting Unavailable Atul Quezada Consulting Unavailable Anuja Marcos Consulting Unavailable Dejuan Mendez Consulting Unavailable Ata, Leonard Consulting Unavailable Habtegebrmargarita, Prudence Consulting Unavailab le Dand, Harinder Consulting Unavailable Vince, Yaw Consulting Unavailable Marcos Aviles Consulting Unavailable Zoila Pathak Consulting Unavailable Aljundi, Lamia Consulting Unavailable PerezBriana mathis Consulting Unavailable Néstor, Sy Consulting Unavailable Irukulla, Dylon Consulting Unavailable Delphine, Raji Consulting Unavailable Dhetanner, Saad Consulting Unavailable Cornelius Birch Consulting Unavailable Luisa Lancaster Consulting Unavailable Alextrsophia, Landon Consulting Unavailable Sumit, Jean Consulting Unavailable Gautam Robles Consulting Unavailable Kanwal Aguilar L Consulting Unavailable John Short Consulting Unavailable Nico Arce Referring Unavailable [facility] Unavailable Nico Arce Attending Unavailable John Short Attending Unavailable Tiffanie Jimenez Attending Unavailabl e [facility] Unavailable Christopher Huang Attending Unavailable Zahra Palacio Referring Unavailable [facility] Unavailable Ethan Hayes Attending Unavailable Martina Rendon Attending Unavailable Sharla, Rudy Primary Care Unavailable Paddy Walker Referring Unavailable Sharla, Rudy Primary Care Unavailable White, Kanwal L Admitting Unavailable White, Kanwal L Attending Unavailable White, Kanwal L Consulting Unavailable Anuja Murcia Attending Unavailable Divina, Anuja Consulting Unavailable White, Kanwal L Attending Unavailable White, Kanwal L Referring Unavailable FriendChristopher Attending Unavailable Sharla, Rudy Primary Care Unavailable Sharita Azar Attending Unavailable Sharla, Rudy Referring Unavailable Nicola Potts Attending Unavailable Sharla, Rudy Primary Care Unavailable Sharla, Rudy Referring Unavailable Zora Sunshine Attending Unavailable Ronny Romo Attending Unavailable Vormahadlothiago, Ananya Consulting Unavailable Sharla, Rudy Primary Care Unavailable White, Kanwal L Admitting Unavailable White, Kanwal L Consulting Unavailable John Short Attending Unavailable Sharla, Rudy Primary Care Unavailable White, Kanwal L Admitting Unavailable White, Kanwal L Consulting Unavailable Anuja Murcia Attending Unavailable Lorena, Arcadioyaomars Consulting Unavailable Sharla, Rudy Primary Care Unavailable Nicola Yadav Attending Unavailable Sharla, Rudy Primary Care Unavailable Ethan Hayes Attending Unavailable Sharla, Rudy Primary Care Unavailable FreddyEthan perdomo Attending Unavailable FriendChristopher Attending Unavailable Sharla, Rudy Referring Unavailable Sharla, Rudy Primary Care Unavailable REGINA ODEN Attending Unavailable SHARLA, RUDY Primary Care Unavailable SHARLA, RUDY Primary Care Unavailable JEROMY LAI Attending Unavaila ble AKSHAT REGINA A Referring Unavailable SHARLA, RUDY Primary Care Unavailable MASCI REGINA A Referring Unavailable SHARLA, RUDY Primary Care Unavailable Allergies Allergy Classification Reported Allergen(s) Allergy Type Date of Onset Reaction(s) Facility (15 sources) Acetaminophen / HYDROcodone; Translations: [HYDROCODONE-ACET AMINOPHEN] Drug Allergy 0 Itching [facility] Repository (15 sources) atorvastatin; Translations: [ATORVASTATIN] Drug Allergy 8 [facility] Repository (20 sources) Codeine; Translations: [CODEINE] Drug Allergy 7 Intolerance [facility] Repository (20 sources) Naproxen; Translations: [NAPROXEN] Drug Allergy 8 Intolerance [facility] Repository (20 sources) fentaNYL Drug Allergy 3 [facility] (20 sources) Morphine Drug Allergy 3 Other [facility] (20 sources) Non-steroidal anti-inflammatory agent Drug Intolerance 7 Rash [facility] (1 source) fentaNYL Drug Allergy 5 [facility] Repository (1 source) Morphine Drug Allergy 5 [facility] Rep[facility] Medications Current Medications Medication Drug Class(es) Dates Sig (Normalized) Sig (Original) acetaminophen 325 mg oral tablet (20 sources) Start: 04-24-2024 End: 05-13-2024 Start: 01-01-2023 End: 01-11-2023 take 2 tablets by mouth every eight hours acetaminophen (Tylenol) 500 MG tablet Take 2 tablets (1,000 mg) by mouth in the morning and 2 tablets (1,000 mg) at noon and 2 tablets (1,000 mg) before bedtime. Do all this for 10 days. 0 01/01/2023 01/11/2023 Start: 01-01-2023 End: 01-11-2023 take 1000 mg by mouth every eight hours Start: 12-28-2022 End: 01-01-2023 take 1000 mg by mouth every eight hours 1,000 mg, Oral, Every 8 hours, First dose on Toma 12/28/22 at 1600, Maximum dose of acetaminophen is 4000 mg from all sources in 24 hours. Start: 02-15-2019 End: 07-06-2022 take 2 tablets by mo uth every four hours as needed acetaminophen (TYLENOL) 325 mg tablet Take 500 mg by mouth every 4 hours as needed. 2 tablets Active take 2 tablets by mo uth every eight hours acetaminophen (TYLENOL) 325 mg tablet Take 500 mg by mouth every 8 hours. 2 tablets Active acetaminophen (T ylenol Extra Strength) 500 MG tablet Take by mouth. 0 Active take 2 tablets by mo uth every six hours as needed acetaminophen (TYLENOL) 325 mg tablet Take 650 mg by mouth every 6 hours as needed. 0 Active Comment on above: Take 650 mg by mouth every 6 hours as needed. Take 500 mg by mouth every 8 hours. 2 tablets acetaminophen 325 mg / oxyCODONE hydrochloride 5 mg oral tablet (20 sources) Opioid Agonist Start: 12-20-2018 take 1 tablet by mouth twice daily as needed for pain oxyCODONE-acetam inophen (PERCOCET) 5-325 mg tablet Indications: DDD (degenerative disc disease), lumbar Take 1 tablet by mouth twice daily as needed for Pain for up to 30 days. 60 tablet 01/19/2019 Active Start: 08-15-2014 End: 05-27-2018 Comment on above: Take 1 tablet by ck twice daily as needed for Pain for up to 30 days. albuterol 0.833 mg/ml / ipratropium bromide 0.167 mg/ml inhalation solution (18 sources) Anticholinergic, beta2-Adrenergic Agonist Start: 01-01-2023 End: 01-01-2024 Start: 12-23-2022 End: 01-01-2024 ipratropium-albuterol (Duo-N eb) 0.5-2.5 mg/3 mL nebulizer solution Take 3 mL by nebulization 3 times daily as needed for wheezing. 0 01/01/2023 01/01/2024 Active aluminum hydroxide 80 mg/ml / magnesium hydroxide 80 mg/ml / simethicone 8 mg/ml oral suspension (2 sources) take 30 mL by mouth every six hours as needed aluminum & magnesium hydroxide-simethicone (MAG-AL PLUS EXTRA STRENGTH) 400-400-40 mg/5 mL suspension Take 30 mL by mouth every 6 hours as needed. Active amLODIPine 10 mg oral tablet (3 sources) Dihydropyridine Calcium Channel Shoryt Start: 2024 apixaban 2.5 mg oral tablet (20 sources) Factor Xa Inhibitor Start: 2024 Start: 01-01-2023 End: 01-01-2023 take 2.5 mg by mouth twice daily 2.5 mg, Oral, 2 times daily, First dose on Sun01/01/23 at 2100, For 25 days, Anticoagulant Start: 01-01-2023 End: 01-31-2023 take 1 tablet by mouth twice daily apixaban (Eliquis) 2.5 MG tablet Take 1 tablet (2.5 mg) by mouth 2 times daily. 0 01/01/2023 Active atorvastatin 20 mg oral tabl et (20 sources) HMG-CoA Reductase Inhibitor Start: 04-24-2024 Start: 12-26-2022 End: 01-01-2023 40 mg, Oral, Daily, First do se on Sun12/26/22 at 2100, Substituted for simvastatin (Zocor). Start: 09-15-2022 End: 10-15-2022 atorvastatin (Lipitor) 20 MG tablet Take 20 mg by mouth. 0 09/15/2022 Active Comment on above: Take 20 mg by mouth once daily. bisacodyl 10 mg rectal suppository (20 sources) Stimulant Laxative take 10 mg rectal route once daily as needed for constipation bisacodyl (DULCOLAX) 10 mg supp 10 mg by RECTAL route once daily as needed for constipation. Active Comment on above: 10 mg by RECTAL rout e once daily as needed for constipation. Blood Glucose Monitoring Suppl (FreeStyle [place]) kit (17 sources) Blood Glucose Monitoring Suppl (FreeStyle [place]) kit busPIRone hydrochloride 7.5 mg oral tablet (20 sources) Start: 09-01-19 busPIRone (BUSPAR) 7.5 mg tablet Take by mouth. 08/31/2022 Active Start: 01-06-2018 End: 05-13-2024 Start: 04-19-2012 End: 06-20-2024 take 1 tablet by mouth twice daily busPIRone (BUSPAR) 15 mg tablet Indications: Generalized anxiety disorder Take 1 tablet by mouth twice daily. 60 tablet 5 04/19/2012 06/20/2024 Discontinued Comment on above: Take 1 tablet by ck th twice daily. carvedilol 3.125 mg oral tab let (20 sources) alpha-Adrenergic Shorty, beta-Adrenergic Shorty Start: 01-05-2024 End: 04-24-2024 Start: 10-18-2023 End: 01-05-2024 Start: 01-08-2018 End: 10-18-2023 take 1 tablet by ck th once daily carvedilol (COREG) 3.125 mg tablet Take 3.125 mg by mouth once daily. 0 Active Comment on above: Take 3.125 mg by ck th once daily. Take 3.125 mg by ck th twice daily with meals. cefadroxil 500 mg oral capsule (3 sources) Cephalosporin Antibacterial Start: 023 End: 023 take 1 capsule by mouth twice daily cefadroxil (Duricef) 500 MG capsule Take 1 capsule (500 mg) by mouth 2 times daily for 7 days. Begin taking for 7 days after discharge from the hospital 14 capsule 0 10/10/2022 10/17/2022 Active cholecalciferol 0.05 mg oral tablet (17 sources) Vitamin D Start: 023 End: 024 take 1 tablet by mouth once daily cholecalciferol (Vitamin D-3) 50 MCG (2000 UT) tablet Take 1 tablet (2,000 Units) by mouth daily. 0 01/02/2023 01/02/2024 Active docusate sodium 50 mg / sennosides, penitentiary 8.6 mg oral tablet (3 sources) Start: 025 take 2 tablets by mo uth once daily in the morning senna-docusate (SENNA-S) 8.6-50 mg per t ablet Take 2 tablets by mouth daily at 6 am. Active donepezil hydrochloride 10 m g oral tablet (11 sources) Start: 05-13-2024 Start: 02-14-2024 End: 05-13-2024 enteric contrast (will be provided with radiology test) (11 sources) Start: 09-14-[address] (will be provided with radiology test) Indications: Lytic bone lesions on xray For CT ABD/PEL W IVCON Routine order Administer, As Directed One Time Only, via Oral, Rectal, both Oral and Rectal, Enteric Tube, Stoma or Indwelling Catheter, Enteric Contrast as designated per enteric contrast guidelines 1 Each 09/14/2022 Active Start: 09-14-[address] (will be provided with radiology test) Indications: Lytic bone lesions on xray For CT ABD/PEL W IVCON Routine order Administer, As Directed One Time Only, via Oral, Rectal, both Oral and Rectal, Enteric Tube, Stoma or Indwelling Catheter, Enteric Contrast as designated per enteric contrast guidelines 1 Each 0 09/14/2022 Active Comment on above: For CT ABD/PEL W IVC ON Routine order Administer, As Directed One Time Only, via Oral, Rectal, both Oral and Rectal, Enteric Tube, Stoma or Indwelling Catheter, Enteric Contrast as designated per enteric contrast guidelines ergocalciferol 1.25 mg oral capsule (20 sources) Provitamin D2 Compound Start: 02-12-2019 End: 06-20-2024 Start: 02-12-2019 End: 12-29-2022 Start: 02-12-2019 Ergocalciferol (Vitamin D2) Active 15503 UNIT PO SA February 12, 2019 12:00am Start: 06-27-2018 End: 01-01-2023 take 1 capsule by mouth every week VITAMIN D 50,000 unit capsule Take 1 capsule by mouth once each week. 0 06/27/2018 Active Comment on above: Take 1 capsule by mo ut once each week. Take 50,000 Units by mouth one time a week. ergocalciferol 135 unt / vitamin a 1250 unt oral capsule (2 sources) Provitamin D2 Compound, Vitamin A take 1 tablet by mouth once daily Vitamin A & D2 1,250-135 unit cap Take 1 tablet by mouth once daily. Active fexofenadine hydrochloride 180 mg oral tablet (20 sources) Histamine-1 Receptor Antagonist Start: 0 End: 5 Comment on above: Take 180 mg by mouth once daily. FLUoxetine 40 mg oral capsule (20 sources) Serotonin Reuptake Inhibitor Start: 3 End: 3 take 40 mg by mouth once daily in the morning 40 mg, Oral, Every morning, First dose (after last modification) on Sun12/30/22 at 0900 Start: 12-26-2022 End: 12-29-2022 take 40 mg by mouth twice daily 40 mg, Oral, 2 times d aily, First dose on Sun12/26/22 at 1000 Start: 10-04-2022 End: 06-20-2024 take 1 capsule by mouth once daily FLUoxetine (PROzac) 20 MG capsule Take 1 capsule (20 mg) by mouth daily for 20 days. 0 01/02/2023 Active Start: 01-06-2018 End: 01-22-2023 take 1 capsule by mouth once daily in the morning FLUoxetine (PROzac) 40 MG capsule Take 1 capsule (40 mg) by mouth every morning for 20 days. 0 01/02/2023 Active Start: 01-06-2018 End: 04-24-2024 Comment on above: Take 20 mg by mouth once daily. Take 40 mg by mouth once daily. gabapentin 100 mg oral capsu le (20 sources) Anti-epileptic Agent Start: 04-14-2023 End: 04-24-2024 Start: 01-01-2023 End: 01-21-2023 take 1 capsule by mouth three times daily gabapentin (Neurontin) 300 MG capsule Take 1 capsule (300 mg) by mouth 3 times daily for 20 days. 0 01/01/2023 Active Start: 12-31-2022 End: 01-01-2023 take 200 mg by mouth three times daily 200 mg, Oral, 3 times daily, First dose (after last modification) on 12/31/22 at 0900 Start: 12-28-2022 End: 12-31-2022 take 100 mg by mouth three times daily 100 mg, Oral, 3 times daily, First dose on Toma 12/28/22 at 0900 Start: 02-12-2019 End: 02-15-2019 Start: 02-12-2019 End: 01-01-2023 take 200 mg by mouth twice daily at mealtime Gabapentin Discontinued 200 MG PO TWICE DAILY WITH MEALS February 12, 2019 1:00am February 15, 2019 3:23pm glipiZIDE 10 mg oral tablet (20 sources) Sulfonylurea Start: 01-06-2018 End: 04-20-2024 Start: 04-19-2012 End: 10-15-2022 take 1 tablet by mouth once daily before breakfast glipiZIDE 10 mg tablet Indications: Type II or unspecified type diabetes mellitus without mention of complication, uncontrolled Take 1 tablet by mouth daily before breakfast. 30 tablet 5 04/19/2012 Active take 1 tablet by ck once daily glipiZIDE XL (Glucotrol XL) 10 MG 24 hr tablet Take 10 mg by mouth daily. Do not crush, chew, or split. 0 Active Comment on above: Take 1 tablet by ck daily before breakfast. hydrOXYzine pamoate 25 mg or al capsule (3 sources) Antihistamine Start: 05-16-2024 3 ml insulin lispro 100 unt/ ml pen injector (8 sources) Insulin Analog Start: 05-16-2024 Start: 04-24-2024 End: 05-13-2024 Start: 10-11-2022 End: 10-11-2022 inject 5 [IU] by subcutaneous injection once 5 Units, SubCUTAneous, Once, On Sun10/11/22 at 1230, For 1 dose Start: 10-10-2022 End: 10-10-2022 inject 10 [IU] by subcutaneous injection once 10 Units, SubCUTAneous, Once, On Sun10/10/22 at 2330, For 1 dose iv contrast (will be provide d with radiology test) (11 sources) Start: 09-11-2022 iv contrast (w ill be provided with radiology test) Indications: Lytic bone lesions on xray CT ABD/PEL -Inject, intravenously, once for 1 [...] in the CT contrast administration guidelines link. 1 Each 09/11/2022 Active Start: 09-11-2022 iv contrast (w ill be provided with radiology test) Indications: Lytic bone lesions on xray CT ABD/PEL -Inject, intravenously, once for 1 [...] in the CT contrast administration guidelines link. 1 Each 0 09/11/2022 Active Comment on above: CT ABD/PEL -Inject, intravenously, once for 1 [...] in the CT contrast administration guidelines link. lidocaine 0.05 mg/mg medicated patch (1 source) Antiarrhythmic, Amide Local Anesthetic Start: 05-16-2024 melatonin 3 mg oral tablet (20 sources) Start: 05-16-2024 Start: 10-13-2022 End: 10-15-2022 take 10 mg by mouth once daily as needed for sleep 10 mg, Oral, Nightly PRN, sleep, Starting on Sun10/13/22 at 1931 take 1 capsule by [facility] once daily at bedtime melatonin 3 mg capsules Take 1 capsule by mouth daily at bedtime. Active take 1 tablet by mouth once rudy y melatonin 10 MG tablet Take 10 mg by mouth daily. 0 Active mineral oil 1000 mg/ml enema (11 sources) mineral oil (FLE ET MINERAL OIL ENEMA) enema 133 mL by RECTAL route as needed for constipation. Active Comment on above: 133 mL by RECTAL rou te as needed for constipation. 24 hr mirabegron 50 mg extended release oral tablet (2 sources) beta3-Adrenergic Agonist take 50 mg by mouth once daily in the morning mirabegron (MYRBETRIQ) 50 mg Tb24 Take 50 mg by mouth daily at 6 am. Active Multivitamin capsule (11 sources) take 1 capsule by mouth once daily Multivitamin capsule Take 1 capsule by mouth once daily. Active take 1 capsule by mouth once sasha ly Multivitamin capsule Take 1 capsule by mouth once daily. 0 Active Comment on above: Take 1 capsule by mo uth once daily. multivitamin,therapeu tic (THERAPEUTIC MULTIVITAMIN ORAL) (2 sources) take 1 tablet by mouth once daily multivitamin,therapeu tic (THERAPEUTIC MULTIVITAMIN ORAL) Take 1 tablet by mouth once daily. Active Nut.Tx.Gluc Intol,Lf,Soy-Fiber (Glucerna 1.2 Broderick) 0.06-1.2 gram-kcal/mL Liquid (1 source) Start: 3 take 1 mL by mouth four times daily Nut.Tx.Gluc Intol,Lf,Soy-Fiber (Glucerna 1.2 Broderick) 0.06-1.2 gram-kcal/mL Liquid Active 120 ML PO 4 TIMES DAILY 0 August 16, 2022 12:00am nystatin 100 unt/mg topical powder (13 sources) Polyene Antifungal Start: 3 Nystatin (Nyamyc) 100,000 unit/gram Powder Active 1 APPLIC TOPICAL TWICE A DAY 0 August 16, 2022 12:00am Start: 08-03-2012 nystatin ointm ent Indications: Skin yeast infection APPLY TO AFFECTED AREA TWICE DAILY FOR 1-2WEEKS 1 Tube 0 08/03/2012 Active Comment on above: APPLY TO AFFECTED AR EA TWICE DAILY FOR 1-2WEEKS omeprazole 20 mg delayed release oral tablet (20 sources) Proton Pump Inhibitor Start: 07-31-2011 End: 09-20-2023 take 1 tablet by mouth once daily PRILOSEC OTC 20 mg tablet Take 1 tablet by mouth once daily. 30 tablet 5 07/31/2011 Active omeprazole (PriL OSEC) [address] capsule Take by mouth. 0 Active End: 01-01-2023 Comment on above: Take 1 tablet by ck th once daily. OTC PRODUCT (2 sources) OTC PRODUCT Appl y to affected area once daily. Lidocaine External Patch Apply to back topically in the morning for pain. Remove at bedtime. Active microencapsulated potassium chloride 20 meq extended release oral tablet (3 sources) Start: 5 Prochlorperazine (12 sources) Phenothiazine PROCHLORPERAZINE MALEATE (COMPAZINE ORAL) Take 1 tablet by mouth. Active PROCHLORPERAZINE MALEATE (COMPAZINE ORAL) Take 1 tablet by mouth. 0 Active Comment on above: Take 1 tablet by ck th. simvastatin 40 mg oral tablet (20 sources) HMG-CoA Reductase Inhibitor Start: 3 End: 5 take 1 tablet by mouth once daily at bedtime simvastatin (ZOCOR) 40 mg tablet Indications: Mixed hyperlipidemia Take 1 tablet by mouth daily at bedtime. 30 tablet 5 04/19/2012 Active Comment on above: Take 1 tablet by ck th daily at bedtime. sodium phosphate, dibasic 35.5 mg/ml / sodium phosphate, monobasic 96.4 mg/ml enema (20 sources) sodium phosphate (Fleets) 7-19 GM/118ML enema enema Insert into the rectum. 0 Active TENS Units logan (12 sources) Start: 7 TENS Units logan 1 Device as needed. 1 Device 05/31/2016 Active Start: 05-31-2016 TENS Units dev i 1 Device as needed. 1 Device 0 05/31/2016 Active Comment on above: 1 Device as needed. tiZANidine 2 mg oral tablet (20 sources) Central alpha-2 Adrenergic Agonist Start: 05-16-2024 Start: 01-06-2018 End: 02-15-2019 take 1 tablet by mouth every twelve hours as needed tiZANidine (ZANAFLEX) 4 mg tablet Take 1 tablet by mouth twice daily as needed. 90 tablet 2 11/20/2018 Active Comment on above: Take 1 tablet by ck th twice daily as needed. 24 hr tolterodine tartrate 4 mg extended release oral capsule (4 sources) Cholinergic Muscarinic Antagonist Start: 04-24-2024 tolterodine ER (DETROL LA) 4 mg 24 hr capsule 4 mg. 04/24/2024 Active Start: 04-24-2024 Turmeric extract (15 sources) Start: 04-14-2023 take 1 capsule by mo [facility] once daily turmeric Active 1 CAP PO DAILY April 14, 2023 1:00am Start: 02-12-2019 End: 07-06-2022 take 400 mg by mouth once daily Turmeric Discontinued 400 MG PO DAILY February 12, 2019 12:00am July 06, 2022 9:41am Start: 02-12-2019 End: 07-06-2022 take 400 mg by mouth once daily Turmeric Discontinued 400 MG PO DAILY February 12, 2019 1:00am July 06, 2022 10:41am Start: 02-12-2019 take 400 mg by mouth once daily Turmeric Active 400 MG PO DAILY February 12, 2019 1:00am (20 sources) Start: 05-16-2024 Start: 05-13-2024 Start: 04-14-2023 End: 04-20-2024 Start: 04-14-2023 Start: 12-26-2022 End: 01-01-2023 take 2.5 mg by mouth every four hours as needed for pain [Order 1 Start] Name: oxyCODONE (Roxicodone) immediate release tablet 2.5 mg Signed Summary: 2.5 mg, Oral, Every 4 hours PRN, moderate pain (4-6), Starting on Sun12/26/22 at 1147, First line, before IV meds [Order 1 End] [Order 2 Start] Name: oxyCODONE (Roxicodone) immediate release tablet 5 mg Signed Summary: 5 mg, Oral, Every 4 hours PRN, severe pain (7-10), Starting on Sun12/26/22 at 1147, First line, before IV meds [Order 2 End] Start: 12-24-2022 End: 01-01-2023 inject 12 [IU] by subcutaneous injection once daily [Order 1 Start] Name: Insulin Lispro (Humalog) injection 0-12 Units Signed Summary: 0-12 Units, SubCUTAneous, 3 times daily with meals, First dose on Sun12/24/22 at 0800, Medium Dose Correction Algorithm Glucose: Dose: LESS than 139 No Insulin 140-199 2 Unit 200-249 4 Units 250-299 6 Units 300-349 8 Units 350-400 10 Units Above 400 12 Units [Order 1 End] [Order 2 Start] Name: Insulin Lispro (Humalog) injection 0-12 Units Signed Summary: 0-12 Units, SubCUTAneous, Nightly, First dose on 12/23/22 at 2245, If continuous tube feedings/TPN/NPO, give correction dose based on result, no reduction in dose. If eating or bolus tube feeding: Medium Dose Correction Algorithm Glucose: Dose: LESS than 139 No Insulin 140-199 2 Unit 200-249 4 Units 250-299 6 Units 300-349 8 Units 350-400 10 Units Above 400 12 Units [Order 2 End] Start: 12-23-2022 End: 12-24-2022 1,000 mg, IntraVENous, Admin ister over 8 Hours, Once, On 12/23/22 at 2315, For 1 dose, Do not exceed maximum rate of 100 mg per minute., Tranexamic Acid Indication: Surgical Prophylaxis: Orthopedic Start: 12-23-2022 End: 12-24-2022 20 mg, IntraVENous, Administ er over 2 Minutes, 2 times daily, First dose on 12/23/22 at 2245, Give if unable to take by mouth or feeding tube. IV Push over minimum of 2 minutes - Dilute with 10 mL NS Start: 12-23-2022 End: 01-01-2023 take 4 mg by mouth every eight hours as needed for nausea and vomiting [Order 1 Start] Name: ondansetron ODT (Zofran-ODT) disintegrating tablet 4 mg Signed Summary: 4 mg, Oral, Every 8 hours PRN, nausea, vomiting, Starting on 12/23/22 at 2236, 1st Line. If inadequate response within 60 minutes, proceed to next-line agent or contact provider if no further options ordered. Patient should allow tablet to dissolve on tongue. Do not remove from blister pack until just before administering. [Order 1 End] [Order 2 Start] Name: ondansetron (Zofran) injection 4 mg Signed Summary: 4 mg, IntraVENous, Every 6 hours PRN, nausea, vomiting, Starting on 12/23/22 at 2236, 1st Line. Give IV if patient is unable to take orally. If inadequate response within 60 minutes, proceed to next-line agent or contact provider if no further options ordered. [Order 2 End] Start: 10-06-2022 End: 10-15-2022 [Order 1 Start] Name: Insuli n Lispro (Humalog) injection 0-12 Units Signed Summary: 0-12 Units, SubCUTAneous, 4 times daily before meals & nightly, First dose (after last modification) on Sun10/06/22 at 2100 Medium Dose Correction Algorithm Glucose: &nb sp; & nbsp; &nbsp ; Dos e: LESS than 139 No Insulin 140-199 2 Unit 200-249 4 Units 250-299 6 Units 300-349 8 Units 350-400 10 Units Above 400 12 Units [Order 1 End] [Order 2 Start] Name: Insulin Lispro (Humalog) injection 0-12 Units Signed Summary: 0-12 Units, SubCUTAneous, Nightly, First dose (after last modification) on Sun10/06/22 at 2100 If continuous tube feedings/TPN/NPO, give correction dose based on result, no reduction in dose. If eating or bolus tube feeding: Medium Dose Correction Algorithm Glucose: &nb sp; & nbsp; &nbsp ; Dos e: LESS than 139 No Insulin 140-199 2 Unit 200-249 4 Units 250-299 6 Units 300-349 8 Units 350-400 10 Units Above 400 12 Units [Order 2 End] Start: 10-04-2022 End: 10-06-2022 Start: 10-03-2022 End: 10-15-2022 take 4 mg by mouth every eight hours as needed for nausea and vomiting [Order 1 Start] Name: ondansetron ODT (Zofran-ODT) disintegrating tablet 4 mg Signed Summary: 4 mg, Oral, Every 8 hours PRN, nausea, vomiting, Starting on Sun10/03/22 at 2128 1st Line. If inadequate response within 60 minutes, proceed to next-line agent or contact provider if no further options ordered. Patient should allow tablet to dissolve on tongue. Do not remove from blister pack until just before administering. [Order 1 End] [Order 2 Start] Name: ondansetron (Zofran) injection 4 mg Signed Summary: 4 mg, IntraVENous, Every 6 hours PRN, nausea, vomiting, Starting on Sun10/03/22 at 2128 1st Line. Give IV if patient is unable to take orally. If inadequate response within 60 minutes, proceed to next-line agent or contact provider if no further options ordered. [Order 2 End] Start: 10-03-2022 End: 10-15-2022 take 650 mg by mouth every six hours as needed for pain and fever [Order 1 Start] Name: acetaminophen (Tylenol) tablet 650 mg Signed Summary: 650 mg, Oral, Every 6 hours PRN, mild pain (1-3), fever, For temp greater than 100.4 F (38 C), Starting on Sun10/03/22 at 2128 Maximum dose of acetaminophen is 4000 mg from all sources in 24 hours. [Order 1 End] [Order 2 Start] Name: acetaminophen (Tylenol) suppository 650 mg Signed Summary: 650 mg, Rectal, Every 6 hours PRN, mild pain (1-3), fever, For temp greater than 100.4 F (38 C), Starting on Sun10/03/22 at 2128 Administer if oral route cannot be used. Maximum dose of acetaminophen is 4000 mg from all sources in 24 hours. [Order 2 End] Start: 09-15-2022 End: 04-14-2023 Start: 09-15-2022 End: 04-14-2023 Start: 09-15-2022 End: 04-14-2023 Start: 09-15-2022 Start: 02-12-2019 End: 07-06-2022 Start: 02-12-2019 End: 02-15-2019 Completed/Discontinued Medications Medication Drug Class(es) Dates Sig (Normalized) Sig (Original) alendronic acid 70 mg oral tablet (20 sources) Bisphosphonate Start: 05-30-2012 End: 06-20-2024 take 1 tablet by mouth every week alendronate (FOSAMAX) 70 mg tablet Indications: Disorder of bone and cartilage, unspecified Take 1 tablet by mouth once each week. 4 tablet 05/30/2012 06/20/2024 Discontinued Comment on above: Take 1 tablet by ck once each week. amoxicillin 875 mg / clavulanate 125 mg oral tablet (4 sources) Penicillin-class Antibacterial Start: 01-05-2024 End: 01-25-2024 aspirin 81 mg delayed release oral tablet (20 sources) Platelet Aggregation Inhibitor, Nonsteroidal Anti-inflammatory Drug Start: 09-20-2023 End: 02-14-2024 Start: 01-08-2018 End: 06-20-2024 Comment on above: Take 81 mg by mouth once daily. baclofen 10 mg oral tablet (20 sources) gamma-Aminobutyric Acid-ergic Agonist Start: 01-06-2018 End: 05-27-2018 calcium chloride 0.0014 meq/ml / potassium chloride 0.004 meq/ml / sodium chloride 0.103 meq/ml / sodium lactate 0.028 meq/ml injectable solution (2 sources) Start: 12-24-2022 End: 12-24-2022 500 mL, IntraVENous, at 250 mL/hr, Administer over 2 Hours, Once, On 12/24/22 at 0645, For 1 dose Start: 12-23-2022 End: 12-28-2022 take 50 mL intravenously every hour 50 mL/hr, IntraVENous, Continuous, Starting on 12/23/22 at 2245 ceFAZolin 2000 mg injection (3 sources) Cephalosporin Antibacterial Start: 12-27-2022 End: 12-28-2022 take 2000 mg intravenously every eight hours 2,000 mg, IntraVENous, Administer over 30 Minutes, Every 8 hours, First dose on Sun12/27/22 at 2000, For 2 doses, Phase II/On Unit, premix bag, Suspected Indication (Select all that apply): Surgical Prophylaxis Start: 10-10-2022 End: 10-14-2022 take 2000 mg intravenously every eight hours 2,000 mg, IntraVENous, Administer over 30 Minutes, Every 8 hours, First dose on Sun10/10/22 at 2215, For 30 days, Recovery & On Unit Continue antibiotics until drain out premix bag Suspected Indication (Select all that apply): Surgical Prophylaxis celecoxib 200 mg oral capsule (20 sources) Nonsteroidal Anti-inflammatory Drug Start: 08-16-2022 End: 06-20-2024 Comment on above: Take 200 mg by mouth once daily. cephalexin 500 mg oral capsule (10 sources) Cephalosporin Antibacterial Start: 04-24-2024 End: 05-13-2024 Start: 04-14-2023 End: 12-30-2023 cetirizine hydrochloride 10 mg oral tablet (4 sources) Histamine-1 Receptor Antagonist Start: 10-06-2022 End: 10-09-2022 take 10 mg by mouth once daily 10 mg, Oral, Daily, First dose on Sun10/06/22 at 2100 Substituted for Loratadine (CLARITIN). chlorhexidine gluconate 1.2 mg/ml mouthwash (1 source) Start: 12-23-2022 End: 12-24-2022 take 1 dose by mouth four times daily 15 mL, Mouth/Throat, 2 times daily, First dose on Sun12/23/22 at 2245, Combine with scheduled oral cares by swabbing oral cavity and teeth with chlorhexidine four times daily. cholecalciferol 9.52 unt/ml / glucose 357 mg/ml oral gel (3 sources) Vitamin D Start: 12-26-2022 End: 01-01-2023 15 g, Oral, As needed, low blood sugar, Starting on Sun12/26/22 at 2233, If blood glucose less than 50 mg/dL and patient ALERT and NOT NPO, give 2 tubes glucose gel. If blood glucose less than 70 mg/dL and patient ALERT and NOT NPO, give 1 tube glucose gel. Repeat blood glucose in 15 minutes. If blood glucose is less than 70 mg/dL, repeat treatment and recheck blood glucose in 15 minutes x2 and notify provider. Start: 10-03-2022 End: 10-15-2022 15 g, Oral, As needed, low b lood sugar, Starting on Sun10/03/22 at 2129 If blood glucose less than 50 mg/dL and patient ALERT and NOT NPO, give 2 tubes glucose gel. If blood glucose less than 70 mg/dL and patient ALERT and NOT NPO, give 1 tube glucose gel. Repeat blood glucose in 15 minutes. If blood glucose is less than 70 mg/dL, repeat treatment and recheck blood glucose in 15 minutes x2 and notify provider. cyclobenzaprine hydrochloride 5 mg oral tablet (20 sources) Muscle Relaxant Start: 09-15-2022 End: 06-20-2024 Comment on above: Take 5 mg by mouth t hree times daily as needed for muscle spasm. 100 ml dexmedetomidine 0.004 mg/ml injection (1 source) Central alpha-2 Adrenergic Agonist Start: 12-25-2022 End: 12-26-2022 0.1-1.5 mcg/kg/hr 81.1 kg (2.0275-30.4125 mL/hr, rounded to 2.03-30.41 mL/hr), IntraVENous, Continuous, Starting on Sun12/25/22 at 2315, If Titrate Infusion? is No: Disregard instructions below. If Titrate infusion? is Yes: Titrate in increments of 0.2 mcg/kg/hr no more frequently than every 30 minutes to goal of therapy. If after titration rate change patient exhibits adverse hemodynamic response, next titration rate change may be adjusted by one-half of the previous rate change. If patient fails sedation interruption, resume dexmedetomidine infusion at 50% of previous rate., Titrate Infusion? Yes, Initial Infusion Dose: 0.2 mcg/kg/hr, Goal of Therapy: RASS 0 to -1, Contact Provider if: New onset HR less than 50 bpm, New onset SBP less than 90 mmHg, Patient is receiving maximum dose and is not achieving the goal of therapy doxycycline monohydrate 100 mg oral capsule (20 sources) Tetracycline-class Drug Start: 01-06-2018 End: 01-08-2018 Drug or medicament (substance) (4 sources) Start: 01-01-2023 End: 01-01-2023 1 tablet, Oral, Daily, First dose on Sun01/01/23 at 1345, Drug Name: Roc, Form: tablet, Length of Therapy: Indefinite, How soon needed? (normally 72 hrs needed to procure): 0-24 hrs, Reason for Non-Formulary: Patient request Start: 10-09-2022 End: 10-09-2022 take 1 capsule by mouth once daily 180 mg, Oral, Daily, First dose on Sun10/09/22 at 0900 Drug Name: Roc Form: capsule delayed-release Length of Therapy: Indefinite How soon needed? (normally 72 hrs needed to procure): 0-24 hrs Reason for Non-Formulary: Pt preference End: 01-01-2023 0.4 ml enoxaparin sodium 100 mg/ml prefilled syringe (16 sources) Low Molecular Weight Heparin Start: 12-28-2022 End: 01-01-2023 inject 40 mg by subcutaneous injection every twelve hours 40 mg, SubCUTAneous, Every 12 hours, First dose (after last modification) on Toma 12/28/22 at 0900, Indication of Use: Prophylaxis-DVT/PE, Indications: Prophylaxis of Venous Thromboembolism Start: 10-15-2022 End: 11-14-2022 inject 0.4 mL by subcutaneous injection once daily enoxaparin (Lovenox) 40 MG/0.4ML solution prefilled syringe Inject 0.4 mL (40 mg) under the skin daily. 30 each 0 10/15/2022 11/14/2022 Active Start: 10-10-2022 End: 11-14-2022 inject 40 mg by subcutaneous injection every twenty-four hours 40 mg, SubCUTAneous, Every 24 hours scheduled (Daily), First dose on Sun10/11/22 at 0900 Indication of Use: Prophylaxis-DVT/PE Indications: Prophylaxis of Venous Thromboembolism Start: 08-16-2022 Enoxaparin Act an 40 MG SC DAILY August 16, 2022 12:00am Please use 30 days after post op 4 ml furosemide 10 mg/ml injection (1 source) Loop Diuretic Start: 12-24-2022 End: 12-24-2022 20 mg, IntraVENous, Once, On 12/24/22 at 1845, For 1 dose Garcinia Cambogia Tablet (14 sources) Start: 02-12-2019 End: 02-15-2019 take 1 tablet by mouth once daily Garcinia Cambogia Tablet Discontinued 3 CAP PO DAILY February 12, 2019 12:00am February 15, 2019 2:17pm Start: 02-12-2019 End: 02-15-2019 take 1 tablet by mouth once daily Garcinia Cambogia Tablet Discontinued 3 CAP PO DAILY February 12, 2019 1:00am February 15, 2019 3:17pm glucagon (rdna) 1 mg injection (3 sources) Anti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 Agent Start: 12-26-2022 End: 01-01-2023 1 mg, IntraMUSCular, PRN, low blood sugar, Blood glucose less than 70 mg/dL and patient NOT ALERT or NPO and does not have IV access., Starting on Sun12/26/22 at 2233, After administration, attempt intravenous access and start D5W at 100 mL/hr. Repeat blood glucose in 15 minutes x2 and notify provider. Start: 10-03-2022 End: 10-15-2022 take 1 mL intravenously every hour 1 mg, IntraMUSCular, PRN, low blood sugar, Blood glucose less than 70 mg/dL and patient NOT ALERT or NPO and does not have IV access., Starting on Sun10/03/22 at 2129 After administration, attempt intravenous access and start D5W at 100 mL/hr. Repeat blood glucose in 15 minutes x2 and notify provider. 150 ml glucose 50 mg/ml injection (6 sources) Start: 12-26-2022 End: 01-01-2023 12.5 g, IntraVENous, PRN, lo w blood sugar, Blood glucose less than 70 mg/dL and patient NOT ALERT or NPO., Starting on Sun12/26/22 at 2233, If patient does not respond within 5 minutes, repeat dose x1. Start D5W at 100 mL/hour until ordering provider can be reached. Repeat blood glucose in 15 minutes. If blood glucose is less than 70 mg/dL, repeat treatment and recheck blood glucose in 15 minutes x2. If using Glucostabilizer, dose as instructed per system. Start: 12-26-2022 End: 01-01-2023 100 mL/hr, IntraVENous, PRN, Blood sugar less than 70mg/dL, Starting on Sun12/26/22 at 2233, Start infusion following administration of dextrose 50% or glucagon. Start: 10-03-2022 End: 10-15-2022 12.5 g, IntraVENous, PRN, lo w blood sugar, Blood glucose less than 70 mg/dL and patient NOT ALERT or NPO., Starting on Sun10/03/22 at 2129 If patient does not respond within 5 minutes, repeat dose x1. Start D5W at 100 mL/hour until ordering provider can be reached. Repeat blood glucose in 15 minutes. If blood glucose is less than 70 mg/dL, repeat treatment and recheck blood glucose in 15 minutes x2. If using Glucostabilizer, dose as instructed per system. Start: 10-03-2022 End: 10-15-2022 100 mL/hr, IntraVENous, PRN, Blood sugar less than 70mg/dL, Starting on Sun10/03/22 at 2129 Start infusion following administration of dextrose 50% or glucagon. 1 ml hydrALAZINE hydrochloride 20 mg/ml injection (1 source) Arteriolar Vasodilator Start: 12-23-2022 End: 01-01-2023 take 10 mg intravenously every four hours as needed for hypertension 10 mg, IntraVENous, Every 4 hours PRN, high blood pressure, Starting on 12/23/22 at 2238, Second line: for SBP > 160 hydroCHLOROthiazide 12.5 mg / lisinopril 20 mg oral tablet (20 sources) Thiazide Diuretic, Angiotensin Converting Enzyme Inhibitor Start: 02-12-2019 End: 02-15-2019 Start: 02-12-2019 End: 02-15-2019 Lisinopril-Hydrochlorothiazi de Discontinued 1 EACH PO DAILY February 12, 2019 1:00am February 15, 2019 3:19pm Start: 02-12-2019 End: 02-15-2019 Start: 04-19-2012 take 1 tablet by ck th once daily lisinopril-hydrochlorothiazide 20-12.5 m g per tablet Indications: Unspecified essential hypertension Take 1 tablet by mouth once daily. 30 tablet 5 04/19/2012 Active Comment on above: Take 1 tablet by ck th once daily. 1 ml HYDROmorphone hydrochloride 1 mg/ml cartridge (4 sources) Opioid Agonist Start: 12-25-2022 End: 12-28-2022 take 0.5 mg by mouth every three hours as needed for pain 0.5 mg, IntraVENous, Every 3 hours PRN, severe pain (7-10), Starting on 12/25/22 at 2315, If oral and IV narcotics ordered, use oral first and only use IV if oral is ineffective or cannot take oral. Start: 12-24-2022 End: 12-25-2022 take 0.5 mg intravenously every four hours as needed for pain 0.5 mg, IntraVENous, Every 4 hours PRN, severe pain (7-10), Starting on 12/24/22 at 0718, If oral and IV narcotics ordered, use oral first and only use IV if oral is ineffective or cannot take oral. Do Not give oral and IV within 1 hour of each other unless specifically ordered. Start: 10-10-2022 End: 10-10-2022 0.5 mg, IntraVENous, Every 5 min PRN, severe pain (7-10), Starting on Tu10/10/22 at 1937, For 4 doses, Recovery (only) Phase I and Phase II- Initial therapy for severe pain (7-10). Restricted to a 90 minute time frame starting when the patient can verbally state their pain score. If after 2 doses the pain score does not decrease by more than one point, then call the provider. If oral meds are utilized, do not return to initial therapy medications. labetalol hydrochloride 5 mg/ml injectable solution (2 sources) beta-Adrenergic Shorty Start: 12-25-2022 End: 01-01-2023 20 mg, IntraVENous, Every 2 hour PRN, high blood pressure, Starting on 12/25/22 at 2315, First line: for SBP > 160, hold for HR < 60 Start: 12-23-2022 End: 12-25-2022 10 mg, IntraVENous, Every 1 hour PRN, high blood pressure, Starting on 12/23/22 at 2237, First line: for SBP > 160, hold for HR < 60 lisinopril 5 mg oral tablet (20 sources) Angiotensin Converting Enzyme Inhibitor Start: 10-06-2022 End: 10-15-2022 take 5 mg by mouth once daily 5 mg, Oral, Daily, First dose (after last modification) on Sun10/06/22 at 0900 Start: 02-15-2019 End: 01-05-2024 Comment on above: Take 20 mg by mouth once daily. Magnesium Hydroxide (20 sources) Start: 09-15-2022 End: 04-14-2023 take 1 mL by mouth once daily Magnesium Hydroxide (Milk Of Magnesia) 400 mg/5 mL suspension Discontinued 30 ML PO DAILY September 15, 2022 12:00am April 14, 2023 10:49am Start: 09-15-2022 take 1 mL by mouth once daily Magnesium Hydroxide (Milk Of Magnesia) 400 mg/5 mL suspension Active 30 ML PO DAILY September 14, 2022 11:00pm Start: 09-15-2022 take 1 mL by mouth once daily Magnesium Hydroxide (Milk Of Magnesia) 400 mg/5 mL suspension Active 30 ML PO DAILY September 15, 2022 12:00am take 30 mL by mouth once daily as needed for constipation magnesium hydroxide (MILK OF MAGNESIA) 400 mg/5 mL suspension Take 30 mL by mouth once daily as needed for constipation. Active Comment on above: Take 30 mL by mouth once daily as needed for constipation. 50 ml magnesium sulfate 40 mg/ml injection (1 source) Start: 12-23-2022 End: 12-24-2022 2,000 mg, IntraVENous, at 25 mL/hr, Administer over 2 Hours, Once, On 12/23/22 at 2315, For 1 dose, Recommended infusion rate not to exceed 1,000 mg (milligrams) per hour. meclizine hydrochloride 25 mg oral tablet (20 sources) Antiemetic Start: 01-06-2018 End: 02-15-2019 MECLIZINE HCL (M ECLIZINE ORAL) Take 1 tablet by mouth. Active MECLIZINE HCL (M ECLIZINE ORAL) Take 1 tablet by mouth. 0 Active Comment on above: Take [address] [facility]. meloxicam 7.5 mg oral tablet (20 sources) Nonsteroidal Anti-inflammatory Drug Start: 04-14-2023 End: 01-05-2024 Start: 02-15-2019 End: 01-01-2023 Start: 01-06-2018 End: 02-15-2019 Menthol (14 sources) Start: 09-15-2022 End: 04-14-2023 Menthol (Biofreeze (Menthol) ) 4 % gel Discontinued 1 APPLIC TOPICAL TWICE A DAY September 15, 2022 12:00am April 14, 2023 10:50am Start: 09-15-2022 Start: 09-15-2022 Menthol (Biofr eeze (Menthol)) 4 % gel Active 1 APPLIC TOPICAL TWICE A DAY September 14, 2022 11:00pm methocarbamol 500 mg oral ta blet (20 sources) Muscle Relaxant Start: 12-30-2023 End: 01-05-2024 Start: 12-28-2022 End: 12-29-2022 take 1 dose by mouth three times daily 500 mg, Oral, Every 8 hours scheduled (3 times per day), First dose on Toma 12/28/22 at 1400 Start: 10-13-2022 End: 01-11-2023 take 1 tablet by mouth every six hours methocarbamol (Robaxin) 500 MG tablet Take 1 tablet (500 mg) by mouth in the morning and 1 tablet (500 mg) at noon and 1 tablet (500 mg) in the evening and 1 tablet (500 mg) before bedtime. Do all this for 10 days. 0 01/01/2023 Active Start: 10-12-2022 End: 10-15-2022 take 1 dose by mouth three times daily 500 mg, Oral, Every 8 hours scheduled (3 times per day), First dose on Toma 10/12/22 at 1400 metroNIDAZOLE 500 mg oral tablet (1 source) Nitroimidazole Antimicrobial Start: 08-16-2022 take 500 mg by mouth three times daily Metronidazole Active 500 MG PO THREE TIMES A DAY 0 August 16, 2022 12:00am Will need to complete 10 days 1 ml morphine sulfate 4 mg/ml cartridge (2 sources) Opioid Agonist Start: 10-03-2022 End: 10-15-2022 take 2 mg intravenously every four hours as needed for pain and pain 2 mg, IntraVENous, Every 4 hours PRN, severe pain (7-10), moderate pain (4-6), Starting on Sun10/03/22 at 1957 If oral and IV narcotics ordered, use oral first and only use IV if oral is ineffective or cannot take oral. Do Not give oral and IV within 1 hour of each other unless specifically ordered. Multivitamin With Iron-Mineral (Super Multiple) tablet (10 sources) Start: 09-15-2022 End: 03-02-2024 take 1 tablet by mouth once daily Multivitamin With Iron-Mineral (Super Multiple) tablet Discontinued 1 TABLET PO DAILY September 15, 2022 12:00am April 14, 2023 10:50am Start: 09-15-2022 take 1 tablet by ck once daily Multivitamin With Iron-Mineral (Super Multiple) tablet Active 1 TABLET PO DAILY September 14, 2022 11:00pm Start: 09-15-2022 take 1 tablet by ck th once daily Multivitamin With Iron-Mineral (Super Multiple) tablet Active 1 TABLET PO DAILY September 15, 2022 12:00am nitrofurantoin, macrocrystal s 100 mg oral capsule (4 sources) Nitrofuran Antibacterial Start: 02-17-2024 End: 04-20-2024 ondansetron 4 mg disintegrat ing oral tablet (9 sources) Serotonin-3 Receptor Antagonist Start: 04-14-2023 End: 04-20-2024 Start: 10-10-2022 End: 10-10-2022 4 mg, IntraVENous, Once PRN, nausea, Starting on Sun10/10/22 at 1937, For 1 dose, Recovery (only) Initial antiemetic therapy. 24 hr oxybutynin chloride 15 mg extended release oral tablet (20 sources) Cholinergic Muscarinic Antagonist Start: 04-20-2024 End: 04-24-2024 Start: 04-14-2023 End: 04-20-2024 Start: 09-13-2022 oxybutynin XL (Ditropan-XL) 10 MG 24 hr tablet Start: 09-13-2022 Start: 01-06-2018 Start: 01-06-2018 take 10 mg by mouth twice rudy y Oxybutynin Chloride Active 10 MG PO TWICE A DAY January 06, 2018 1:00am Start: 08-13-2012 take 2 tablets by [facility] twice daily oxybutynin 5 mg tablet Take 2 tablets by mouth twice daily. 120 tablet 11 08/13/2012 Active Comment on above: Take 2 tablets by [facility] twice daily. oxyCODONE hydrochloride 5 mg oral tablet (20 sources) Opioid Agonist Start: 04-14-2023 End: 12-30-2023 Start: 01-01-2023 End: 01-08-2023 take 1 tablet by mouth every six hours as needed for pain oxyCODONE (Roxicodone) 5 MG immediate release tablet Indications: Closed displaced intertrochanteric fracture of right femur, initial encounter ([facility]) , Closed fracture of multiple pubic rami, right, initial encounter ([facility]) Take 1 tablet (5 mg) by mouth every 6 hours as needed for severe pain (7-10) for up to 7 days. 28 tablet 0 01/01/2023 01/08/2023 Start: 02-15-2019 End: 02-22-2019 Start: 02-15-2019 End: 11-13-2022 take 5-10 mg by mouth every six hours as needed Oxycodone Discontinued 5 - 10 MG PO EVERY 6 HOURS NEEDED 30 7 February 15, 2019 February 22, 2019 1:09am Start: 02-12-2019 End: 02-15-2019 Start: 02-12-2019 End: 02-15-2019 take 1 capsule by mouth twice daily Oxycodone Myristate Discontinued 1 CAP PO TWICE A DAY February 12, 2019 1:00am February 15, 2019 3:16pm Start: 02-12-2019 End: 02-15-2019 pantoprazole 40 mg delayed r elease oral tablet (15 sources) Proton Pump Inhibitor Start: 09-20-2023 End: 04-24-2024 Start: 10-05-2022 End: 10-15-2022 take 40 mg by mouth once daily before breakfast 40 mg, Oral, Daily before breakfast, First dose on Toma 10/05/22 at 0700 Do not crush, chew, or split. polyethylene glycol [id number] [id number] mg powder for oral solution (20 sources) Osmotic Laxative Start: 09-15-2022 End: 04-14-2023 1 ml promethazine hydrochloride 25 mg/ml injection (1 source) Phenothiazine Start: 12-25-2022 End: 12-26-2022 inject 12.5 mg by intramuscular injection every six hours as needed for nausea and vomiting 12.5 mg, IntraMUSCular, Every 6 hours PRN, nausea, vomiting, 2nd line, Starting on 12/25/22 at 2315, Only to be given as IM injection. 100 ml propofol 10 mg/ml injection (1 source) General Anesthetic Start: 12-23-2022 End: 12-24-2022 2-50 mcg/kg/min 81.1 kg (0.9732-24.33 mL/hr, rounded to 0.97-24.33 mL/hr), IntraVENous, Continuous, Starting on 12/23/22 at 2245, If Titrate Infusion? is No: Disregard instructions below. If Titrate infusion? is Yes: Titrate in increments of 5 mcg/kg/min no more frequently than every 5 minutes to goal of therapy. If after titration rate change patient exhibits adverse hemodynamic response, next titration rate change may be adjusted by one-half of the previous rate change. If patient fails sedation interruption, resume propofol infusion at 50% of previous rate. General Anesthetic - do not give without appropriate ventilation support. Do not administer propofol in same IV catheter as blood or plasma. Discard any unused portion of propofol vials and tubing after 12 hours., Titrate Infusion? Yes, Initial Infusion Rate: 20 mcg/kg/min, Goal of Therapy: RASS 0 to -1, Contact Provider if: New onset HR less than 50 bpm, New onset SBP less than 90 mmHg, Triglycerides greater than 500 mg/dL, Patient is receiving maximum dose and is not achieving the goal of therapy QUEtiapine 25 mg oral tablet (2 sources) Atypical Antipsychotic Start: 12-29-2022 End: 01-01-2023 take 12.5 mg by mouth once daily 12.5 mg, Oral, Nightly, First dose (after last modification) on Sun12/29/22 at 2100 Start: 12-26-2022 End: 12-29-2022 take 25 mg by mouth once daily 25 mg, Oral, Nightly, F irst dose on Sun12/26/22 at 2100 sennosides, [facility] 8.6 mg oral tablet (3 sources) Start: 12-23-2022 End: 01-01-2023 take 1 tablet by mouth once daily for constipation 17.2 mg (2 tablet), Oral, Nightly, First dose on 12/23/22 at 2245, Bowel Regimen - for prevention of constipation., , On hold since 12/31/2022 at 1910 until manually unheld take 1 tablet by ck th every twelve hours as needed Senna 8.6 mg tab Take 8.6 mg by mouth tw o times a day as needed for constipation. Active sucralfate 1000 mg oral tablet (4 sources) Aluminum Complex Start: 01-05-2024 End: 04-20-2024 traMADol hydrochloride 50 mg oral tablet (20 sources) Opioid Agonist Start: 08-16-2022 End: 01-01-2023 take 1 tablet by mouth every eight hours as needed for pain traMADol (Ultram) 50 MG tablet Indications: Complication of internal hip prosthesis, initial encounter (HCC) , Failed orthopedic implant, initial encounter (HCC) Take 1 tablet (50 mg) by mouth every 8 hours as needed for moderate pain (4-6) for up to 1 day. 3 tablet 0 10/15/2022 10/16/2022 Active Start: 08-16-2022 End: 04-14-2023 Start: 08-16-2022 End: 04-14-2023 Comment on above: Take 50 mg by mouth every 6 hours as needed for pain. (2 sources) Start: 10-03-2022 End: 10-03-2022 take 75 mL intravenously once as needed 75 mL, IntraVENous, IMG once PRN, contrast, Starting on Sun10/03/22 at 2025, For 1 dose (2 sources) Start: 12-26-2022 End: 12-26-2022 take 100 mL intravenously once as needed 100 mL, IntraVENous, IMG once PRN, contrast, Starting on Sun12/26/22 at 1348, For 1 dose Start: 12-23-2022 End: 12-23-2022 65 mL, Intra-arTERial, IMG o nce PRN, contrast, Starting on 12/23/22 at 2234, For 1 dose (1 source) Start: 12-26-2022 End: 01-01-2023 take 0.3 mg under the tongue once daily 0.3 mg, SubLINGual, Nightly, First dose on Sun12/26/22 at 2100 (1 source) Start: 12-24-2022 End: 12-28-2022 take 1000 mg intravenously every eight hours 1,000 mg, IntraVENous, at 400 mL/hr, Administer over 15 Minutes, Every 8 hours, First dose on Sun12/24/22 at 0000, Drug Name: acetaminophen, Form: solution, Length of Therapy: Indefinite, How soon needed? (normally 72 hrs needed to procure): 0-24 hrs, Reason for Non-Formulary: NPO (1 source) Start: 12-23-2022 End: 12-24-2022 25-200 mcg/hr (2.5-20 mL/hr), IntraVENous, Continuous, Starting on 12/23/22 at 2245, If Titrate Infusion? is No: Disregard instructions below. If Titrate infusion? is Yes: Titrate in increments of 25 mcg/hr no more frequently than every 30 minutes to goal of therapy. If after titration dose change patient exhibits adverse hemodynamic response, next titration dose change may be adjusted by one-half of the previous dose change. If patient fails sedation interruption, resume infusion at 50% of previous dose., Titrate Infusion? Yes, Initial Infusion Dose: 50 mcg/hr, Goal of Therapy is: CPOT <3, Contact Provider if: Patient is receiving the maximum dose and is not achieving the goal of therapy Problems Active Problems Problem Classification Problem Date Documented Date Episodic/Chronic Acute and unspecified renal failure (20 sources) Acute renal failure syndrome; Translations: [Acute kidney failure, unspecified] Onset: 5 04-20-2024 Episodic Acute myocardial infarction (20 sources) Myocardial infarction; Translations: [Acute myocardial infarction, unspecified] Onset: 8 11-06-2022 Chronic Acute posthemorrhagic anemia (20 sources) Acute posthemorrhagic anemia; Translations: [Acute posthemorrhagic anemia] Onset: 3 08-14-2022 Episodic Anxiety disorders (20 sources) Generalized anxiety disorder; Translations: [Generalized anxiety disorder] Onset: 7 11-26-2009 Chronic Chronic kidney disease (20 sources) Chronic kidney disease stage 3; Translations: [Stage 3 chronic kidney disease] Onset: 3 03-06-2019 Chronic Chronic kidney disease (1 source) Chronic kidney disease; Translations: [Chronic kidney disease, stage 3a] Onset: Congestive heart failure; nonhypertensive (8 sources) Acute exacerbation of chronic congestive heart failure; Translations: [Heart failure, unspecified] Onset: 4 01-12-2024 Chronic Coronary atherosclerosis and other heart disease (20 sources) Non-obstructive atherosclerosis of coronary artery; Translations: [Atherosclerotic heart disease of [place] coronary artery without angina pectoris] Onset: 3 02-12-2019 Chronic Diabetes mellitus without complication (20 sources) Type 2 diabetes mellitus without complications; Translations: [Type 2 diabetes mellitus without complication] Onset: 9 02-25-2015 Chronic Diseases of white blood cells (20 sources) Leukocytosis; Translations: [Elevated white blood cell count, unspecified] Onset: 0 11-26-2009 Chronic Disorders of lipid metabolism (20 sources) Hyperlipidemia, unspecified; Translations: [Mixed hyperlipidemia] Onset: 9 02-12-2019 Chronic E Codes: Fall (20 sources) Fall on same level from slipping, tripping or stumbling ; Translations: [Fall on same level from slipping, tripping and stumbling without subsequent striking against object, initial encounter] Onset: 3 08-05-2022 Episodic Esophageal disorders (20 sources) Gastro-esophageal reflux disease without esophagitis; Translations: [Gastroesophageal reflux disease] Onset: 7 11-26-2009 Chronic Essential hypertension (20 sources) Essential (primary) hypertension; Translations: [Essential hypertension] Onset: 6 02-12-2019 Chronic Fluid and electrolyte disorders (20 sources) Dehydration; Translations: [Dehydration] 09-17-2023 Episodic Fracture of neck of femur (hip) (20 sources) Closed intertrochanteric fracture; Translations: [Displaced intertrochanteric fracture of left femur, initial encounter for closed fracture] Onset: 3 08-05-2022 Episodic Fracture of neck of femur (hip) (20 sources) Fracture of bone of hip region; Translations: [Fracture of unspecified part of neck of right femur, initial encounter for closed fracture] Onset: 3 12-23-2022 Episodic Genitourinary symptoms and ill-defined conditions (20 sources) Urge incontinence; Translations: [Urinary incontinence] Onset: 0 11-26-2009 Chronic Heart valve disorders (20 sources) Rheumatic mitral valve disease, unspecified; Translations: [Mitral valve disorders] Onset: 7 11-26-2009 Chronic Hypertension with complications and secondary hypertension (10 sources) Hypertensive urgency ; Translations: [Hypertensive urgency] 04-14-2023 Chronic Immunizations and screening for infectious disease (20 sources) Requires tetanus and diphtheria vaccination; Translations: [Encounter for immunization] 03-07-2019 Episodic Mood disorders (20 sources) Bipolar disorder, unspecified; Translations: [Bipolar disorder, in partial remission, most recent episode mixed] Onset: 7 11-26-2009 Chronic Mycoses (8 sources) Candidal intertrigo; Translations: [Candidiasis of skin and nail] 04-20-2024 Episodic Nausea and vomiting (2 sources) Vomiting, unspecified; Translations: [Vomiting, unspecified] Onset: 7 Nonspecific chest pain (8 sources) Chest pain; Translations: [Chest pain, unspecified] 09-17-2023 Episodic Nutritional deficiencies (17 sources) Nutritional marasmus; Translations: [Unspecified severe protein-calorie malnutrition] Onset: 3 01-01-2023 Chronic Open wounds of head; neck; and trunk (20 sources) Facial laceration ; Translations: [Laceration without foreign body of other part of head, initial encounter] Onset: 3 03-07-2019 Episodic Osteoarthritis (20 sources) Unilateral primary osteoarthritis, right hip; Translations: [Osteoarthrosis, unspecified whether generalized or localized, pelvic region and thigh] Onset: 7 07-06-2022 Chronic Osteoporosis (8 sources) Age-related osteoporosis without current pathological fracture; Translations: [Osteoporosis] Onset: 9 06-20-2024 Chronic Other aftercare (4 sources) Long-term current use of anticoagulant; Translations: [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 anticoagulants] 04-20-2024 Episodic Other and ill-defined heart disease (2 sources) Takotsubo syndrome; Translations: [Takotsubo syndrome] Onset: 9 Chronic Other and ill-defined heart disease (20 sources) Takotsubo cardiomyopathy; Translations: [Takotsubo syndrome] Onset: 9 03-07-2018 Chronic Other bone disease and musculoskeletal deformities (4 sources) Other specified disorders of bone density and structure, unspecified site; Translations: [Other disorders of bone and cartilage] 07-06-2022 Episodic Other bone disease and musculoskeletal deformities (20 sources) Lytic lesion of bone on X-ray; Translations: [Disorder of bone, unspecified] Onset: 3 08-14-2022 Episodic Other bone disease and musculoskeletal deformities (2 sources) Disorder of bone, unspecified; Translations: [Disorder of bone and cartilage, unspecified] 08-16-2022 Episodic Other bone disease and musculoskeletal deformities (20 sources) Disorder of skeletal system; Translations: [Disorder of bone, unspecified] Onset: 3 11-03-2011 Episodic Other bone disease and musculoskeletal deformities (7 sources) Other specified disorders of bone, unspecified site; Translations: [Lytic lesion of bone on x-ray] Onset: 5 08-14-2022 Episodic Other circulatory disease (18 sources) Low blood pressure; Translations: [Hypotension, unspecified] 12-23-2022 Episodic Other connective tissue disease (2 sources) History of total hip arthroplasty; Translations: [Presence of left artificial hip joint] 11-06-2022 Chronic Other connective tissue disease (2 sources) Presence of left artificial hip joint; Translations: [Presence of left artificial hip joint] Onset: 3 Chronic Other connective tissue disease (2 sources) Presence of unspecified artificial hip joint; Translations: [Presence of unspecified artificial hip joint] Onset: 3 Chronic Other connective tissue disease (8 sources) Recurrent falls ; Translations: [Repeated falls] 04-20-2024 Episodic Other female genital disorders (4 sources) Pelvic hematoma 12-31-2022 Episodic Other fractures (2 sources) Other fracture of unspecified lumbar vertebra, initial encounter for closed fracture; Translations: [Other fracture of unspecified lumbar vertebra, initial encounter for closed fracture] Onset: 9 Episodic Other fractures (1 source) Wedge compression fracture of fifth lumbar vertebra, subsequent encounter for fracture with delayed healing; Translations: [Wedge compression fracture of fifth lumbar vertebra, subsequent encounter for fracture with delayed healing] Onset: 9 Episodic Other fractures (4 sources) Wedge compression fracture of unspecified lumbar vertebra, initial encounter for closed fracture; Translations: [Closed fracture of lumbar vertebra without mention of spinal cord injury] 07-06-2022 Episodic Other fractures (20 sources) Compression fracture ; Translations: [Compression fracture] Onset: 3 08-14-2022 Episodic Other inflammatory condition of skin (20 sources) Psoriatic arthritis; Translations: [Arthropathic psoriasis, unspecified] Onset: 8 08-06-2017 Chronic Other injuries and conditions due to external causes (20 sources) Closed injury of head; Translations: [Unspecified injury of head, initial encounter] Onset: 3 03-07-2019 Episodic Other injuries and conditions due to external causes (3 sources) Unspecified injury of head, initial encounter; Translations: [Head injury, unspecified] 08-05-2022 Episodic Other injuries and conditions due to external causes (4 sources) Systemic inflammatory response syndrome; Translations: [Systemic inflammatory response syndrome (SIRS) of non-infectious origin without acute organ dysfunction] 02-13-2024 Episodic Other lower respiratory disease (20 sources) Dyspnea; Translations: [Shortness of breath] Onset: 3 08-14-2022 Episodic Other lower respiratory disease (20 sources) Hypoxia; Translations: [Hypoxemia] Onset: 3 08-14-2022 Episodic Other lower respiratory disease (2 sources) Hypoxemia; Translations: [Hypoxemia] 08-16-2022 Episodic Other lower respiratory disease (2 sources) Shortness of breath; Translations: [Shortness of breath] 08-16-2022 Episodic Other nervous system disorders (2 sources) Polyneuropathy, unspecified; Translations: [Polyneuropathy, unspecified] Onset: 7 Chronic Other nervous system disorders (20 sources) Disorder of brain; Translations: [Encephalopathy, unspecified] Onset: 3 03-06-2019 Chronic Other nervous system disorders (20 sources) Lesion of left ulnar nerve; Translations: [Lesion of ulnar nerve, left upper limb] Onset: 6 02-17-2015 Chronic Other nervous system disorders (4 sources) Unable to walk; Translations: [Difficulty in walking, not elsewhere classified] 05-13-2024 Chronic Other nervous system disorders (1 source) Encephalopathy, unspecified; Translations: [Encephalopathy, unspecified] Onset: 5 Chronic Other nervous system disorders (20 sources) Toxic metabolic encephalopathy; Translations: [Toxic metabolic encephalopathy] Onset: 3 08-14-2022 Episodic Other nervous system disorders (1 source) Impaired cognition; Translations: [Other symptoms and signs involving cognitive functions and awareness] 12-24-2022 Episodic Other non-traumatic joint disorders (20 sources) Hip pain; Translations: [Pain in right hip] Onset: 3 07-06-2022 Episodic Other nutritional; endocrine; and metabolic disorders (6 sources) Hyperammonemia; Translations: [Disorder of urea cycle metabolism, unspecified] 04-14-2023 Chronic Other nutritional; endocrine; and metabolic disorders (2 sources) Disorder of urea cycle metabolism, unspecified; 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] 04-18-2023 Chronic Other nutritional; endocrine; and metabolic disorders (4 sources) H/O: diabetes mellitus; Translations: [Personal history of other endocrine, nutritional and metabolic disease] 04-20-2024 Episodic Pleurisy; pneumothorax; pulmonary collapse (20 sources) Pleural effusion; Translations: [Pleural effusion, not elsewhere classified] Onset: 3 08-14-2022 Episodic Residual codes; unclassified (20 sources) Delirium; Translations: [Disorientation, unspecified] Onset: 3 02-12-2019 Episodic Residual codes; unclassified (7 sources) Disturbance of consciousness; Translations: [Transient alteration of awareness] 04-20-2024 Episodic Residual codes; unclassified (1 source) Disorientation, unspecified; Translations: [Disorientation, unspecified] Onset: 5 Episodic Residual codes; unclassified (1 source) Altered mental status, unspecified; Translations: [Altered mental status, unspecified] Onset: 5 Episodic Septicemia (except in labor) (20 sources) Sepsis; Translations: [Sepsis, unspecified organism] Onset: 5 04-14-2023 Episodic Spondylosis; intervertebral disc disorders; other back problems (20 sources) Other intervertebral disc degeneration, lumbar region; Translations: [Degeneration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 Type: BLOOD SPECIMEN Ordering Facility: [facility] Address: [address] [place] [address] Performed By: #### 4 5268-0 #### [facility] CLIA [id number] [address] [place] [address] [place] CD3-CD16+CD56+ (Natural killer) cells/100 cells (Bld) 10 % Normal 5-25 [facility] Comment on above: Order Comment: Speci men Type: BLOOD SPECIMEN Ordering Facility: [facility] Address: [address] [place] [address] Performed By: #### 4 5268-0 #### [facility] CLIA [id number] [address] [place], [place] [address] [place] CD3-CD19+ cells (Bld) [#/Vol] 268 cells/uL Normal 75-660 [facility] Comment on above: Order Comment: Speci men Type: BLOOD SPECIMEN Ordering Facility: [facility] Address: [address] [place] [address] Performed By: #### 4 5268-0 #### [facility] CLIA [id number] [address] [place] [address] [place] CD3-CD19+ cells/100 cells (Bld) 11 % Normal 5-22 [facility] Comment on above: Order Comment: Speci men Type: BLOOD SPECIMEN Ordering Facility: [facility] Address: [address] [place] [address] Performed By: #### 4 5268-0 #### [facility] CLIA [id number] [address] [place] [address] [place],FREE,SERon 2024 Immunoglobulin light chains.kappa.free (S) [Mass/Vol] 30.2 mg/L High 3.3-19.4 [facility] Comment on above: Order Comment: Speci [facility] Type: BLOOD SPECIMEN Ordering Facility: [facility] Address: [address] [place] [address] Result Comment: Rare ly, increased serum free light chains levels may not be detected or accurately quantified due to prozone phenomenon or in high viscosity samples using this immunoturbidimetric assay. Correlation with other laboratory results and clinical findings is recommended. The [place] Free Light Chain was performed using the Binding Site Optilite immunoturbidimetric method. Result obtained with different assay methods or kits cannot be used interchangeably. Performed By: #### K LFRS #### [facility] CLIA [id number] [address] [place] [address] [place] Immunoglobulin light chains.kappa/Immunoglob ulin light chains.lambda (S) [Mass ratio] 1.27 Normal 0.26-1.65 [facility] Comment on above: Order Comment: Speci [facility] Type: BLOOD SPECIMEN Ordering Facility: [facility] Address: [address] [place] [address] Performed By: #### K LFRS #### [facility] CLIA [id number] [address] [place] [address] [place] Immunoglobulin light chains.lambda.free [Mass/Vol] 23.7 mg/L Normal 5.7-26.3 [facility] Comment on above: Order Comment: Speci men Type: BLOOD SPECIMEN Ordering Facility: [facility] Address: [address] [place] [address] Result Comment: Rare ly, increased serum free light chains levels may not be detected or accurately quantified due to prozone phenomenon or in high viscosity samples using this immunoturbidimetric assay. Correlation with other laboratory results and clinical findings is recommended. The [place] Free Light Chain was performed using the Binding Site Optilite immunoturbidimetric method. Result obtained with different assay methods or kits cannot be used interchangeably. Performed By: #### K LFRS #### [facility] CLIA [id number] [address] [place] [address] [place] MONOCLONAL PROT UR W/INTERPo n 06-20-2024 STAFF REVIEW ([place]) Reviewed by Yayo Babb M.D. Normal [facility] Comment on above: Order Comment: Speci men Type: URINE SPECIMEN Ordering Facility: [facility] Address: [address] [place] [address] Performed By: #### U RMPA #### [facility] CLIA [id number] [address] [place] [address] [place] UMPA RESULT No M protein is identified. Normal No M protein is identified. [facility] Comment on above: Order Comment: Speci men Type: URINE SPECIMEN Ordering Facility: [facility] Address: [address] [place] [address] Performed By: #### U RMPA #### [facility] CLIA [id number] [address] [place] [address] [place] PROTEIN ELECTROPHORESIS SERU M (P)on 06-20-2024 Albumin [Mass/Vol] 4.01 g/dL Normal 3.43-5.41 [facility] Comment on above: Order Comment: Speci men Type: URINE SPECIMEN Ordering Facility: [facility] Address: [address] [place] [address] Performed By: #### L [id number] #### [facility] CLIA [id number] [address] [place] [address] [place] Alpha 1 globulin Elph [Mass/Vol] 0.33 g/dL Normal 0.18-0.43 [facility] Comment on above: Order Comment: Speci men Type: URINE SPECIMEN Ordering Facility: [facility] Address: [address] [place] [address] Performed By: #### L [id number] #### [facility] CLIA [id number] [address] [place] [address] [place] Alpha 2 globulin Elph [Mass/Vol] 0.68 g/dL Normal 0.42-0.98 [facility] Comment on above: Order Comment: Speci men Type: URINE SPECIMEN Ordering Facility: [facility] Address: [address] [place] [address] Performed By: #### L [id number] #### [facility] CLIA [id number] [address] [place] [address] [place] Beta globulin Elph [Mass/Vol] 0.85 g/dL Normal 0.61-1.17 [facility] Comment on above: Order Comment: Speci men Type: URINE SPECIMEN Ordering Facility: [facility] Address: [address] [place] [address] Performed By: #### L [id number] #### [facility] CLIA [id number] [address] [place] [address] [place] Gamma globulin Elph [Mass/Vol] 1.02 g/dL Normal 0.53-1.51 [facility] Comment on above: Order Comment: Speci men Type: URINE SPECIMEN Ordering Facility: [facility] Address: [address] [place] [address] Performed By: #### L [id number] #### [facility] CLIA [id number] [address] [place] [address] [place] M-PROTEIN LOCATION Normal [facility] Comment on above: Order Comment: Speci men Type: URINE SPECIMEN Ordering Facility: [facility] Address: [address] [place] [address] Result Comment: Not Applicable. Performed By: #### L [id number] #### [facility] CLIA [id number] [address] [place] [address] [place] Protein Fractions [Interp] No definitive M protein is identified on protein electrophoresis. Normal No definitive M protein is identified on protein electrophor esis. [facility] Comment on above: Order Comment: Speci men Type: URINE SPECIMEN Ordering Facility: [facility] Address: [address] [place] [address] Performed By: #### L [id number] #### [facility] CLIA [id number] [address] [place] [address] [place] Protein.monoclonal Elph [Mass/Vol] 0.00 g/dL Normal <=0.00 [facility] Comment on above: Order Comment: Speci men Type: URINE SPECIMEN Ordering Facility: [facility] Address: [address] [place] [address] Performed By: #### L [id number] #### [facility] CLIA [id number] [address] [place] [address] [place] SPE STAFF REVIEW Reviewed by Yayo Babb M.D. Normal [facility] Comment on above: Order Comment: Speci men Type: URINE SPECIMEN Ordering Facility: [facility] Address: [address] [place] [address] Performed By: #### L [id number] #### [facility] CLIA [id number] [address] [place], [place] [address] [place] Prot SerPl-mCncon 06-20-2024 Protein [Mass/Vol] 6.9 g/dL Normal 6.3-8.0 [facility] Comment on above: Order Comment: Speci men Type: BLOOD SPECIMEN Ordering Facility: [facility] Address: [address] [place] [address] Performed By: #### 2 885-2 #### [facility] CLIA [id number] [address] [place] [address] [place] Prot Ur-mCncon 06-20-2024 Protein (U) [Mass/Vol] 25 mg/dL High 0-20 [facility] Comment on above: Order Comment: Speci men Type: URINE SPECIMEN Ordering Facility: [facility] Address: [address] [place] [address] Performed By: #### L [id number] #### [facility] CLIA [id number] [address] [place] [address] [place] URINE PROTEIN ELECTROPHORESI S RANDOM (P)on 06-20-2024 Albumin Elph (U) [Mass fraction] 46.23 % Normal [facility] Comment on above: Order Comment: Speci men Type: URINE SPECIMEN Ordering Facility: [facility] Address: [address] [place] [address] Performed By: #### L [id number] #### [facility] CLIA [id number] [address] [place] [address] [place] Alpha 1 globulin Elph (U) [Mass fraction] 4.64 % Normal [facility] Comment on above: Order Comment: Speci men Type: URINE SPECIMEN Ordering Facility: [facility] Address: [address] [place] [address] Performed By: #### L [id number] #### [facility] CLIA [id number] [address] [place] [address] [place] Alpha 2 globulin Elph (U) [Mass fraction] 15.66 % Normal [facility] Comment on above: Order Comment: Speci men Type: URINE SPECIMEN Ordering Facility: [facility] Address: [address] [place], [place] [id number] Performed By: #### L [id number] #### [facility] CLIA [id number] [address] [place], [place] [address] [place] Beta globulin Elph (U) [Mass fraction] 19.44 % Normal [facility] Comment on above: Order Comment: Speci men Type: URINE SPECIMEN Ordering Facility: [facility] Address: [address] [place] [address] Performed By: #### L [id number] #### [facility] CLIA [id number] [address] [place] [address] [place] Gamma globulin Elph (U) [Mass fraction] 14.02 % Normal [facility] Comment on above: Order Comment: Speci men Type: URINE SPECIMEN Ordering Facility: [facility] Address: [address] [place] [address] Performed By: #### L [id number] #### [facility] CLIA [id number] [address] [place], [place] [address] [place] Protein Fractions Elph Minesh (U) [Interp] No definitive M protein is identified on protein electrophoresis. Normal No definitive M protein is identified on protein electrophor esis. [facility] Comment on above: Order Comment: Speci men Type: URINE SPECIMEN Ordering Facility: [facility] Address: [address] [place] [address] Performed By: #### L [id number] #### [facility] CLIA [id number] [address] [place], [place] [address] [facility] [place] STAFF REVIEW (URINE ELECTRO) Reviewed by Yayo Babb M.D. Normal [facility] Comment on above: Order Comment: Speci men Type: URINE SPECIMEN Ordering Facility: [facility] Address: [address] [place] [address] Performed By: #### L [id number] #### [facility] CLIA [id number] [facility] [address] [facility] Jamir 05-29-2024 ROMELIAN Telephone (ISELA) ----- MARSHDONNA Chandra ([id number]) 1955 F Date Time Provider Department 05/29/24 REGINA ODEN During your visit today, we recorded the following information about you: Daksha Tang 05/29/2024 3:05 PM Signed [facility] called stating that patient is back with them at this time. She is asking if patient needed a follow up with Dr. Oden. Patient was here in 2022. Please call Jeannie at [phone] Katalina You LPN 05/29/2024 3:46 PM Signed Called [facility] was placed on hold. Sent fax to nurses telling them we saw patient once in 2022 (then twice in 2009 prior for a different diagnosis). I asked them if there was a reason they thought she needed to be seen. Will await communication back from [facility]. NURY Cervantes Melanie, LPN 06/10/2024 9:38 AM Signed Patient has not seen oncology since last here. All imaging since last here printed and placed in Dr. Oden's mailbox for review. I also placed the biopsy results from 09/18/[address] Oden's mailbox. Est complex OV? NURY Shaw Paul A, DO 06/10/2024 11:19 AM Signed Yes, establish complex please. CBC. DO Santos Escalera Melanie, LPN 06/10/2024 11:29 AM Addendum PSS- please contact [facility] [phone] to get patient scheduled for an est complex OV with Dr. Oden. Will also need a lab appointment for a CBC prior to OV that same day. NURY Shaw Angela 06/10/2024 12:32 PM Signed Spoke with [facility] and scheduled lab and est complex ov Terrie Azar Pss, Daksha 06/16/2024 1:52 PM Signed Daughter, Joo called asking if appointment is necessary and if patient is needing to be seen at [facility], can we just put in referral. She [...] 02/28/2007 NAPROXEN 02/26/2007 5 - Intolerance VICODIN (HYDROCODONE-ACETAMINOPHE *03/05/2009 9 - Itching Date Reviewed: 09/04/2022 Reviewed by: Johnathon Tim MA - Fully Assessed Reason for [...] by mouth once each week. - aspirin, (more content not included)... Normal [facility] Gastroenterology Visit Repor ton 05-29-2024 Gastroenterology Visit Report Normal [facility] Emergency Department Summary on 05-19-2024 Emergency Department Summary Normal [facility] Spine Lumbar without Contras ton 05-19-2024 Spine Lumbar without Contrast Normal [facility] Absolute neutrophil countOrd ered By: Anuja Murcia on 05-17-2024 Absolute neutrophil count 9.3 X10^3/uL High 2.0-7.7 [facility] Anion gap [Moles/Vol]Ordered By: Anuja Murcia on 05-17-2024 Anion gap in Serum or Plasma 13 5-15 [facility] BUN/creatinine ratioOrdered By: Anuja Murcia on 05-17-2024 BUN/creatinine ratio 18.8 [facility] - [facility] Basic Metabolic Profile (BMP )on 05-17-2024 BUN/CRE 18.8 [facility] Normal - [facility] Comment on above: Performed By: #### L 500.2500, L100.0100 ####[facility] [address] [place], [address] Calcium [Mass/Vol] 8.8 mg/dL Normal 7.6-11.0 [facility] Comment on above: Performed By: #### L 500.2500, L100.0100 ####[facility] [address] [place], [address] Chloride [Moles/Vol] 105 mmol/L Normal 98-108 [facility] Comment on above: Performed By: #### L 500.2500, L100.0100 ####[facility] [address] [place], [address] CO2 [Moles/Vol] 19.8 mmol/L Low 21.0-32.0 [facility] Comment on above: Performed By: #### L 500.2500, L100.0100 ####[facility] [address] [place], [address] Creatinine [Mass/Vol] 1.13 mg/dL Normal 0.70-1.20 [facility] Comment on above: Performed By: #### L 500.2500, L100.0100 ####[facility] [address] [place], [address] ECRCL 43.85 ml/min Low 50-250 [facility] Comment on above: Performed By: #### L 500.2500, L100.0100 ####[facility] [address] [place], [address] GAP 13 Normal -15 [facility] Comment on above: Performed By: #### L 500.2500, L100.0100 ####[facility] [address] [place], [address] GFR/1.73 sq M.predicted among non-blacks MDRD (S/P/Bld) [Vol rate/Area] 52 mL/min/{1.73_m2} Low >60 [facility] Comment on above: Result Comment: mL/m in/1.73m2 CKD-EPI Creatinine Equation (2020) Performed By: #### L 500.2500, L100.0100 ####[facility] [address] [place], [address] Glucose [Mass/Vol] 229 mg/dL High 70-99 [facility] Comment on above: Performed By: #### L 500.2500, L100.0100 ####[facility] [address] [place], [address] Potassium [Moles/Vol] 4.1 mmol/L Normal 3.3-5.1 [facility] Comment on above: Performed By: #### L 500.2500, L100.0100 ####[facility] [address] [place], [address] Sodium [Moles/Vol] 138 mmol/L Normal 133-145 [facility] Comment on above: Performed By: #### L 500.2500, L100.0100 ####[facility] [address] [place], [address] Urea nitrogen [Mass/Vol] 21 mg/dL High 4-19 [facility] Comment on above: Performed By: #### L 500.2500, L100.0100 ####[facility] [address] [place], [address] Basophil percentageOrdered B y: Anuja Murcia on 05-17-2024 Basophil percentage 0.2 % 0-1 [facility] Bedside Glucoseon 05-17-2024 FINGERSTICK GLU 199 mg/dL High 74-106 [facility] Comment on above: Result Comment: GERALDO GEMENT OF PATIENT CARE PER NURSING PROTOCOL Performed By: #### L 501.080 ####[facility] [address] [place], [address] FINGERSTICK GLU 190 mg/dL High 74-106 [facility] Comment on above: Result Comment: GERALDO GEMENT OF PATIENT CARE PER NURSING PROTOCOL Performed By: #### L 501.080 ####[facility] [address] [place], [address] CBC W/Diff, Automatedon Absolute Lymph 2.47 X10 3/uL Normal 0.83-4.51 [facility] Comment on above: Performed By: #### L 500.2500, L100.0100 ####[facility] [address] [place], [address] Absolute Neut 9.3 X10 3/uL High 2.0-7.7 [facility] Comment on above: Performed By: #### L 500.2500, L100.0100 ####[facility] [address] [place], [address] Basophils/100 WBC (Bld) 0.2 % Normal 0-1 [facility] Comment on above: Performed By: #### L 500.2500, L100.0100 ####[facility] [address] [place], [address] Eosinophils/100 WBC (Bld) 0.7 % Normal 0-5 [facility] Comment on above: Performed By: #### L 500.2500, L100.0100 ####[facility] [address] [place], [address] Erythrocyte distribution width (RBC) [Ratio] 13.9 % Normal 11.6-14.6 [facility] Comment on above: Performed By: #### L 500.2500, L100.0100 ####[facility] [address] [place], [address] Hematocrit (Bld) [Volume fraction] 36.3 % Low 37-47 [facility] Comment on above: Performed By: #### L 500.2500, L100.0100 ####[facility] [address] [place], [address] Hemoglobin (Bld) [Mass/Vol] 11.9 g/dL Low 12.0-15.0 [facility] Comment on above: Performed By: #### L 500.2500, L100.0100 ####[facility] [address] [place], [address] IG% 0.300 Normal 0.0-0.9 [facility] Comment on above: Result Comment: IG% - Immature Granulocytes (promyelocytes, myelocytes andmetamyelocytes) > 1% indicates that a LEFT SHIFT is Present. Performed By: #### L 500.2500, L100.0100 ####[facility] [address] [place], [address] Lymphocytes/100 WBC (Bld) 19.1 % Normal 19-41 [facility] Comment on above: Performed By: #### L 500.2500, L100.0100 ####[facility] [address] [place], [address] MCH (RBC) [Entitic mass] 29.2 pg Normal 27.0-32.0 [facility] Comment on above: Performed By: #### L 500.2500, L100.0100 ####[facility] [address] [place], [address] MCHC (RBC) [Mass/Vol] 32.8 g/dL Normal 32-36 [facility] Comment on above: Performed By: #### L 500.2500, L100.0100 ####[facility] [address] [place], [address] MCV (RBC) [Entitic vol] 89.0 fL Normal 81-99 [facility] Comment on above: Performed By: #### L 500.2500, L100.0100 ####[facility] [address] [place], [address] Monocytes/100 WBC (Bld) 8.0 % Normal 0-10 [facility] Comment on above: Performed By: #### L 500.2500, L100.0100 ####[facility] [address] [place], [address] Neutrophils/100 WBC (Bld) 71.7 % High 47-70 [facility] Comment on above: Performed By: #### L 500.2500, L100.0100 ####[facility] [address] [place], [address] Nucleated RBC (Bld) [#/Vol] 0 10*3/uL Normal 0-5 [facility] Comment on above: Performed By: #### L 500.2500, L100.0100 ####[facility] [address] [place], [address] Platelet mean volume (Bld) [Entitic vol] 10.1 fL Normal 6.2-12.0 [facility] Comment on above: Performed By: #### L 500.2500, L100.0100 ####[facility] [address] [place], [address] Platelets (Bld) [#/Vol] 249 10*3/uL Normal 150-450 [facility] Comment on above: Performed By: #### L 500.2500, L100.0100 ####[facility] [address] [place], [address] RBC (Bld) [#/Vol] 4.08 10*6/uL Low 4.2-5.4 [facility] Comment on above: Performed By: #### L 500.2500, L100.0100 ####[facility] [address] [place], [address] RDW SD 45.0 fl High 35.1-43.9 [facility] Comment on above: Performed By: #### L 500.2500, L100.0100 ####[facility] [address] [place], [address] WBC (Bld) [#/Vol] 13.0 10*3/uL High 4.4-11.0 [facility] Comment on above: Performed By: #### L 500.2500, L100.0100 ####[facility] [address] [place], [address] Calcium [Mass/Vol]Ordered By : Anuja Murcia on 05-17-2024 Serum or plasma calcium measurement (mass/volume) 8.8 mg/dL 7.6-11.0 [facility] Carbon dioxide, total [Moles /volume] in Central venous bloodOrdered By: Anuja Murcia on 05-17-2024 Carbon dioxide, total [Moles/volume] in Central venous blood 19.8 mmol/L Low 21.0-32.0 [facility] Chloride assayOrdered By: Pascual Murcia on 05-17-2024 Chloride assay 105 mmol/L 98-108 [facility] Creatinine Unsp time (U) [Ma ss/Vol]Ordered By: Suma Robertson on 05-17-2024 Random urine creatinine measurement (mass/volume) 21.70 mg/dL Low 28.00-217.0 0 [facility] Creatinine [Mass/Vol]Ordered By: Anuja Murcia on 05-17-2024 Serum creatinine measurement (mass/volume) 1.13 mg/dL 0.70-1.20 [facility] Emergency Department Summary on 05-17-2024 Emergency Department Summary Normal [facility] Eosinophil percentageOrdered By: Anuja Murcia on 05-17-2024 Eosinophil percentage 0.7 % 0-5 [facility] Erythrocyte distribution wid th (RBC) [Ratio]Ordered By: Anuja Murcia on 05-17-2024 Erythrocyte distribution width ratio 13.9 % 11.6-14.6 [facility] Erythrocyte distribution width standard deviation 45.0 fl High 35.1-43.9 [facility] Estimation of creatinine maribel aranceOrdered By: Anuja Murcia on 05-17-2024 Estimation of creatinine clearance 43.85 ml/min Low 50-250 [facility] GFR/1.73 sq M.predicted shorty g non-blacks MDRD (S/P/Bld) [Vol rate/Area]Ordered By: Anuja Murcia on 05-17-2024 Glomerular filtration rate (GFR) estimation/1.73 sq m using serum, plasma, or whole b 52 Low >60 [facility] Glucose [Mass/Vol]Ordered By : Anuja Murcia on 05-17-2024 Serum glucose measurement (mass/volume) 229 mg/dL High 70-99 [facility] Glucose measurement at bedsi deOrdered By: Anuja Murcia on 05-17-2024 Glucose measurement at bedside 199 mg/dL High 74-106 [facility] Hematocrit Auto (Bld) [Volum e fraction]Ordered By: Anuja Murcia on 05-17-2024 Automated blood hematocrit (percentage) 36.3 % Low 37-47 [facility] Hemoglobin measurementOrdere d By: Anuja Murcia on 05-17-2024 Hemoglobin measurement 11.9 g/dL Low 12.0-15.0 [facility] Immature granulocytes/100 WB C Auto (Bld)Ordered By: Anuja Murcia on 05-17-2024 Automated immature granulocyte percentage 0.300 % 0.0-0.9 [facility] Lymphocytes Auto (Unsp spec) [#/Vol]Ordered By: Anuja Murcia on 05-17-2024 Absolute lymphocyte count 2.47 X10^3/uL 0.83-4.51 [facility] Lymphocytes/100 WBC Auto (Un sp spec)Ordered By: Anuja Murcia on 05-17-2024 Automated lymphocyte count as percentage of total leukocytes 19.1 % 19-41 [facility] MCV (RBC) [Entitic vol]Order ed By: Anuja Murcia on 05-17-2024 MCV (mean corpuscular volume) determination 89.0 fL 81-99 [facility] Mean corpuscular hemoglobin (MCH) determinationOrdered By: Anuja Murcia on 05-17-2024 Mean corpuscular hemoglobin (MCH) determination 29.2 pg 27.0-32.0 [facility] Mean corpuscular hemoglobin concentration (MCHC) determinationOrdered By: Anuja Murcia on 05-17-2024 Mean corpuscular hemoglobin concentration (MCHC) determination 32.8 g/dL 32-36 [facility] Mean platelet volume determi nationOrdered By: Anuja Murcia on 05-17-2024 Mean platelet volume determination 10.1 fl 6.2-12.0 [facility] Monocyte percentageOrdered B y: Anuja Murcia on 05-17-2024 Monocyte percentage 8.0 % 0-10 [facility] Neutrophil percentageOrdered By: Anuja Murcia on 05-17-2024 Neutrophil percentage 71.7 % High 47-70 [facility] Nucleated red blood cell per centageOrdered By: Anuja Murcia on 05-17-2024 Nucleated red blood cell percentage 0 % 0-5 [facility] Platelet countOrdered By: Pascual Murcia on 05-17-2024 Platelet count 249 K/mm3 150-450 [facility] Potassium (Unsp spec) [Mass/ Vol]Ordered By: Anuja Murcia on 05-17-2024 Potassium measurement (mass/volume) 4.1 mmol/L 3.3-5.1 [facility] Protein (U) [Mass/Vol]Ordere d By: Suma Robertson on 05-17-2024 Urine protein measurement (mass/volume) 100.0 mg/dL High 0.0-12.0 [facility] Protein+Creatinine Ratio,Uri neon 05-17-2024 PROT:CRE RATIO 4608 mg/g CRE High 0-200 [facility] Comment on above: Order Comment: SENT LABEL TO PCU TO COLLECT Performed By: #### L 501.0996 ####[facility] [address] [place], [place], [id number] Protein (U) [Mass/Vol] 100.0 mg/dL High 0.0-12.0 [facility] Comment on above: Order Comment: SENT LABEL TO PCU TO COLLECT Performed By: #### L 501.0900 ####[facility] [address] [place], [address] UR CREAT 21.70 mg/dL Low 28.00-217.0 0 [facility] Comment on above: Order Comment: SENT LABEL TO PCU TO COLLECT Performed By: #### L 501.0900 ####[facility] [address] [place], [address] Protein/Creatinine (U) [Mass ratio]Ordered By: Suma Robertson on 05-17-2024 Urine protein/creatinine mass ratio 4608 mg/g CRE High 0-200 [facility] RBC Auto (Bld) [#/Vol]Ordere d By: Anuja Murcia on 05-17-2024 Automated blood erythrocyte count 4.08 M/mm3 Low 4.2-5.4 [facility] Sodium levelOrdered By: Abdirahman Murcia on 05-17-2024 Sodium level 138 mmol/L 133-145 [facility] Urea nitrogen [Mass/Vol]Orde red By: Anuja Murcia on 05-17-2024 Serum or plasma urea nitrogen measurement (mass/volume) 21 mg/dL High 4-19 [facility] White blood cell (WBC) count Ordered By: Anuja Murcia on 05-17-2024 White blood cell (WBC) count 13.0 K/mm3 High 4.4-11.0 [facility] 12 Lead EKGon 05-16-2024 12 Lead EKG Normal [facility] Basic Metabolic Profile (BMP )on 05-16-2024 BUN/CRE 17.8 RATIO Normal 10-20 [facility] Comment on above: Performed By: #### L 500.2500, L100.0100 ####[facility] [address] [place], [place], [id number] Calcium [Mass/Vol] 8.1 mg/dL Normal 7.6-11.0 [facility] Comment on above: Performed By: #### L 500.2500, L100.0100 ####[facility] [address] [place], [address] Chloride [Moles/Vol] 113 mmol/L High 98-108 [facility] Comment on above: Performed By: #### L 500.2500, L100.0100 ####[facility] [address] [place], [address] CO2 [Moles/Vol] 17.8 mmol/L Low 21.0-32.0 [facility] Comment on above: Performed By: #### L 500.2500, L100.0100 ####[facility] [address] [place], [address] Creatinine [Mass/Vol] 0.97 mg/dL Normal 0.70-1.20 [facility] Comment on above: Performed By: #### L 500.2500, L100.0100 ####[facility] [address] [place], [address] ECRCL 51.63 ml/min Normal 50-250 [facility] Comment on above: Performed By: #### L 500.2500, L100.0100 ####[facility] [address] [place], [address] GAP 11 Normal 5-15 [facility] Comment on above: Performed By: #### L 500.2500, L100.0100 ####[facility] [address] [place], [address] GFR/1.73 sq M.predicted among non-blacks MDRD (S/P/Bld) [Vol rate/Area] 63 mL/min/{1.73_m2} Normal >60 [facility] Comment on above: Result Comment: mL/m in/1.73m2 CKD-EPI Creatinine Equation (2020) Performed By: #### L 500.2500, L100.0100 ####[facility] [address] [place], [address] Glucose [Mass/Vol] 145 mg/dL High 70-99 [facility] Comment on above: Performed By: #### L 500.2500, L100.0100 ####[facility] [address] [place], [address] Potassium [Moles/Vol] 3.2 mmol/L Low 3.3-5.1 [facility] Comment on above: Performed By: #### L 500.2500, L100.0100 ####[facility] [address] [place], [address] Sodium [Moles/Vol] 141 mmol/L Normal 133-145 [facility] Comment on above: Performed By: #### L 500.2500, L100.0100 ####[facility] [address] [place], [address] Urea nitrogen [Mass/Vol] 17 mg/dL Normal 4-19 [facility] Comment on above: Performed By: #### L 500.2500, L100.0100 ####[facility] [address] [place], [address] Bedside Glucoseon 05-16-2024 FINGERSTICK GLU 210 mg/dL High 74-106 [facility] Comment on above: Result Comment: GERALDO GEMENT OF PATIENT CARE PER NURSING PROTOCOL Performed By: #### L 501.080 ####[facility] [address] [place], [address] FINGERSTICK GLU 228 mg/dL High 74-106 [facility] Comment on above: Result Comment: GERALDO GEMENT OF PATIENT CARE PER NURSING PROTOCOL Performed By: #### L 501.080 ####[facility] [address] [place], [address] FINGERSTICK GLU 175 mg/dL High 74-106 [facility] Comment on above: Result Comment: GERALDO GEMENT OF PATIENT CARE PER NURSING PROTOCOL Performed By: #### L 501.080 ####[facility] [address] [place], [address] FINGERSTICK GLU 140 mg/dL High 74-106 [facility] Comment on above: Result Comment: GERALDO GEMENT OF PATIENT CARE PER NURSING PROTOCOL Performed By: #### L 501.080 ####[facility] [address] [place], [address] FINGERSTICK GLU 128 mg/dL High 74-106 [facility] Comment on above: Result Comment: GERALDO GEMENT OF PATIENT CARE PER NURSING PROTOCOL Performed By: #### L 501.080 ####[facility] [address] [place], [address] CBC W/Diff, Automatedon 04-0 4-2024 Absolute Lymph 2.22 X10 3/uL Normal 0.83-4.51 [facility] Comment on above: Performed By: #### L 500.2500, L100.0100 ####[facility] [address] [place], [address] Absolute Neut 6.7 X10 3/uL Normal 2.0-7.7 [facility] Comment on above: Performed By: #### L 500.2500, L100.0100 ####[facility] [address] [place], [address] Basophils/100 WBC (Bld) 0.2 % Normal 0-1 [facility] Comment on above: Performed By: #### L 500.2500, L100.0100 ####[facility] [address] [place], [address] Eosinophils/100 WBC (Bld) 2.4 % Normal 0-5 [facility] Comment on above: Performed By: #### L 500.2500, L100.0100 ####[facility] [address] [place], [address] Erythrocyte distribution width (RBC) [Ratio] 13.6 % Normal 11.6-14.6 [facility] Comment on above: Performed By: #### L 500.2500, L100.0100 ####[facility] [address] [place], [address] Hematocrit (Bld) [Volume fraction] 30.3 % Low 37-47 [facility] Comment on above: Performed By: #### L 500.2500, L100.0100 ####[facility] [address] [place], [address] Hemoglobin (Bld) [Mass/Vol] 9.8 g/dL Low 12.0-15.0 [facility] Comment on above: Performed By: #### L 500.2500, L100.0100 ####[facility] [address] [place], [address] IG% 0.600 Normal 0.0-0.9 [facility] Comment on above: Result Comment: IG% - Immature Granulocytes (promyelocytes, myelocytes andmetamyelocytes) > 1% indicates that a LEFT SHIFT is Present. Performed By: #### L 500.2500, L100.0100 ####[facility] [address] [place], [address] Lymphocytes/100 WBC (Bld) 22.2 % Normal 19-41 [facility] Comment on above: Performed By: #### L 500.2500, L100.0100 ####[facility] [address] [place], [address] MCH (RBC) [Entitic mass] 29.2 pg Normal 27.0-32.0 [facility] Comment on above: Performed By: #### L 500.2500, L100.0100 ####[facility] [address] [place], [address] MCHC (RBC) [Mass/Vol] 32.3 g/dL Normal 32-36 [facility] Comment on above: Performed By: #### L 500.2500, L100.0100 ####[facility] [address] [place], [address] MCV (RBC) [Entitic vol] 90.2 fL Normal 81-99 [facility] Comment on above: Performed By: #### L 500.2500, L100.0100 ####[facility] [address] [place], [address] Monocytes/100 WBC (Bld) 8.0 % Normal 0-10 [facility] Comment on above: Performed By: #### L 500.2500, L100.0100 ####[facility] [address] [place], [address] Neutrophils/100 WBC (Bld) 66.6 % Normal 47-70 [facility] Comment on above: Performed By: #### L 500.2500, L100.0100 ####[facility] [address] [place], [address] Nucleated RBC (Bld) [#/Vol] 0 10*3/uL Normal 0-5 [facility] Comment on above: Performed By: #### L 500.2500, L100.0100 ####[facility] [address] [place], [address] Platelet mean volume (Bld) [Entitic vol] 10.2 fL Normal 6.2-12.0 [facility] Comment on above: Performed By: #### L 500.2500, L100.0100 ####[facility] [address] [place], [address] Platelets (Bld) [#/Vol] 179 10*3/uL Normal 150-450 [facility] Comment on above: Performed By: #### L 500.2500, L100.0100 ####[facility] [address] [place], [address] RBC (Bld) [#/Vol] 3.36 10*6/uL Low 4.2-5.4 [facility] Comment on above: Performed By: #### L 500.2500, L100.0100 ####[facility] [address] [place], [address] RDW SD 44.9 fl High 35.1-43.9 [facility] Comment on above: Performed By: #### L 500.2500, L100.0100 ####[facility] [address] [place], [address] WBC (Bld) [#/Vol] 10.0 10*3/uL Normal 4.4-11.0 [facility] Comment on above: Performed By: #### L 500.2500, L100.0100 ####[facility] [address] [place], [address] Chest PA and Lateralon 05-16 Chest PA and Lateral Normal [facility] L499.0042on 05-16-2024 Trop T High Sen 18 ng/L High <=14 [facility] Comment on above: Performed By: #### L 499.0042 ####[facility] [address] [place], [address] L499.0043on 05-16-2024 Trop T High Sen 18 ng/L High <=14 [facility] Comment on above: Performed By: #### L 499.0043 ####[facility] [address] [place], [address] L501.4021on 05-16-2024 Trop T High Sen 17 ng/L High <=14 [facility] Comment on above: Performed By: #### L 501.4021 ####[facility] [address] [place], [address] Troponin T.cardiac High sens itivity method [Mass/Vol]Ordered By: Anuja Murcia on 05-16-2024 Troponin T.cardiac [Mass/volume] in Serum or Plasma by High sensitivity method 18 ng/L High <14 [facility] Troponin T.cardiac [Mass/volume] in Serum or Plasma by High sensitivity method 18 ng/L High <14 [facility] Troponin T.cardiac [Mass/volume] in Serum or Plasma by High sensitivity method 17 ng/L High <14 [facility] Basic Metabolic Profile (BMP )on 05-15-2024 BUN/CRE 15.8 RATIO Normal 10-20 [facility] Comment on above: Performed By: #### L 501.2300, L501.5200, L500.2500, L100.0100 ####[facility] [address] [place], [address] Calcium [Mass/Vol] 7.9 mg/dL Normal 7.6-11.0 [facility] Comment on above: Performed By: #### L 501.2300, L501.5200, L500.2500, L100.0100 ####[facility] [address] [place], [address] Chloride [Moles/Vol] 108 mmol/L Normal 98-108 [facility] Comment on above: Performed By: #### L 501.2300, L501.5200, L500.2500, L100.0100 ####[facility] [address] [place], [address] CO2 [Moles/Vol] 17.6 mmol/L Low 21.0-32.0 [facility] Comment on above: Performed By: #### L 501.2300, L501.5200, L500.2500, L100.0100 ####[facility] [address] [place], [address] Creatinine [Mass/Vol] 1.84 mg/dL High 0.70-1.20 [facility] Comment on above: Performed By: #### L 501.2300, L501.5200, L500.2500, L100.0100 ####[facility] [address] [place], [address] ECRCL 27.49 ml/min Low 50-250 [facility] Comment on above: Performed By: #### L 501.2300, L501.5200, L500.2500, L100.0100 ####[facility] [address] [place], [address] GAP 11 Normal 5-15 [facility] Comment on above: Performed By: #### L 501.2300, L501.5200, L500.2500, L100.0100 ####[facility] [address] [place], [address] GFR/1.73 sq M.predicted among non-blacks MDRD (S/P/Bld) [Vol rate/Area] 29 mL/min/{1.73_m2} Low >60 [facility] Comment on above: Result Comment: mL/m in/1.73m2 CKD-EPI Creatinine Equation (2020) Performed By: #### L 501.2300, L501.5200, L500.2500, L100.0100 ####[facility] [address] [place], [address] Glucose [Mass/Vol] 109 mg/dL High 70-99 [facility] Comment on above: Performed By: #### L 501.2300, L501.5200, L500.2500, L100.0100 ####[facility] [address] [place], [address] Potassium [Moles/Vol] 3.3 mmol/L Normal 3.3-5.1 [facility] Comment on above: Performed By: #### L 501.2300, L501.5200, L500.2500, L100.0100 ####[facility] [address] [place], [address] Sodium [Moles/Vol] 137 mmol/L Normal 133-145 [facility] Comment on above: Performed By: #### L 501.2300, L501.5200, L500.2500, L100.0100 ####[facility] [address] [place], [address] Urea nitrogen [Mass/Vol] 29 mg/dL High 4-19 [facility] Comment on above: Performed By: #### L 501.2300, L501.5200, L500.2500, L100.0100 ####[facility] [address] [place], [address] Bedside Glucoseon 05-15-2024 FINGERSTICK GLU 130 mg/dL High 74-106 [facility] Comment on above: Result Comment: GERALDO GEMENT OF PATIENT CARE PER NURSING PROTOCOL Performed By: #### L 501.080 ####[facility] [address] [place], [address] FINGERSTICK GLU 158 mg/dL High 74-106 [facility] Comment on above: Result Comment: GERALDO GEMENT OF PATIENT CARE PER NURSING PROTOCOL Performed By: #### L 501.080 ####[facility] [address] [place], [address] FINGERSTICK GLU 156 mg/dL High 74-106 [facility] Comment on above: Result Comment: GERALDO GEMENT OF PATIENT CARE PER NURSING PROTOCOL Performed By: #### L 501.080 ####[facility] [address] [place], [address] FINGERSTICK GLU 92 mg/dL Normal 74-106 [facility] Comment on above: Result Comment: GERALDO GEMENT OF PATIENT CARE PER NURSING PROTOCOL Performed By: #### L 501.080 ####[facility] [address] [place], [address] CBC W/Diff, Automatedon 04-0 3-2024 Absolute Lymph 2.98 X10 3/uL Normal 0.83-4.51 [facility] Comment on above: Performed By: #### L 501.2300, L501.5200, L500.2500, L100.0100 ####[facility] [address] [place], [address] Absolute Neut 5.8 X10 3/uL Normal 2.0-7.7 [facility] Comment on above: Performed By: #### L 501.2300, L501.5200, L500.2500, L100.0100 ####[facility] [address] [place], [address] Basophils/100 WBC (Bld) 0.3 % Normal 0-1 [facility] Comment on above: Performed By: #### L 501.2300, L501.5200, L500.2500, L100.0100 ####[facility] [address] [place], [address] Eosinophils/100 WBC (Bld) 4.7 % Normal 0-5 [facility] Comment on above: Performed By: #### L 501.2300, L501.5200, L500.2500, L100.0100 ####[facility] [address] [place], [address] Erythrocyte distribution width (RBC) [Ratio] 13.9 % Normal 11.6-14.6 [facility] Comment on above: Performed By: #### L 501.2300, L501.5200, L500.2500, L100.0100 ####[facility] [address] [place], [address] Hematocrit (Bld) [Volume fraction] 29.6 % Low 37-47 [facility] Comment on above: Performed By: #### L 501.2300, L501.5200, L500.2500, L100.0100 ####[facility] [address] [place], [address] Hemoglobin (Bld) [Mass/Vol] 9.6 g/dL Low 12.0-15.0 [facility] Comment on above: Performed By: #### L 501.2300, L501.5200, L500.2500, L100.0100 ####[facility] [address] [place], [address] IG% 0.400 Normal 0.0-0.9 [facility] Comment on above: Result Comment: IG% - Immature Granulocytes (promyelocytes, myelocytes andmetamyelocytes) > 1% indicates that a LEFT SHIFT is Present. Performed By: #### L 501.2300, L501.5200, L500.2500, L100.0100 ####[facility] [address] [place], [address] Lymphocytes/100 WBC (Bld) 30.1 % Normal 19-41 [facility] Comment on above: Performed By: #### L 501.2300, L501.5200, L500.2500, L100.0100 ####[facility] [id number] [place], [address] MCH (RBC) [Entitic mass] 29.0 pg Normal 27.0-32.0 [facility] Comment on above: Performed By: #### L 501.2300, L501.5200, L500.2500, L100.0100 ####[facility] [id number] [place], [address] MCHC (RBC) [Mass/Vol] 32.4 g/dL Normal 32-36 [facility] Comment on above: Performed By: #### L 501.2300, L501.5200, L500.2500, L100.0100 ####[facility] [address] [place], [address] MCV (RBC) [Entitic vol] 89.4 fL Normal 81-99 [facility] Comment on above: Performed By: #### L 501.2300, L501.5200, L500.2500, L100.0100 ####[facility] [address] [place], [address] Monocytes/100 WBC (Bld) 6.3 % Normal 0-10 [facility] Comment on above: Performed By: #### L 501.2300, L501.5200, L500.2500, L100.0100 ####[facility] [address] [place], [address] Neutrophils/100 WBC (Bld) 58.2 % Normal 47-70 [facility] Comment on above: Performed By: #### L 501.2300, L501.5200, L500.2500, L100.0100 ####[facility] [address] [place], [address] Nucleated RBC (Bld) [#/Vol] 0 10*3/uL Normal 0-5 [facility] Comment on above: Performed By: #### L 501.2300, L501.5200, L500.2500, L100.0100 ####[facility] [address] [place], [address] Platelet mean volume (Bld) [Entitic vol] 10.0 fL Normal 6.2-12.0 [facility] Comment on above: Performed By: #### L 501.2300, L501.5200, L500.2500, L100.0100 ####[facility] [address] [place], [address] Platelets (Bld) [#/Vol] 168 10*3/uL Normal 150-450 [facility] Comment on above: Performed By: #### L 501.2300, L501.5200, L500.2500, L100.0100 ####[facility] [address] [place], [address] RBC (Bld) [#/Vol] 3.31 10*6/uL Low 4.2-5.4 [facility] Comment on above: Performed By: #### L 501.2300, L501.5200, L500.2500, L100.0100 ####[facility] [address] [place], [address] RDW SD 45.4 fl High 35.1-43.9 [facility] Comment on above: Performed By: #### L 501.2300, L501.5200, L500.2500, L100.0100 ####[facility] [address] [place], [address] WBC (Bld) [#/Vol] 9.9 10*3/uL Normal 4.4-11.0 [facility] Comment on above: Performed By: #### L 501.2300, L501.5200, L500.2500, L100.0100 ####[facility] [address] [place], [address] Consultation - Nephrologyon 05-15-2024 Consultation - Nephrology Normal [facility] Magnesiumon 05-15-2024 Magnesium [Mass/Vol] 1.6 mg/dL Normal 1.5-2.2 [facility] Comment on above: Performed By: #### L 501.2300, L501.5200, L500.2500, L100.0100 ####[facility] [address] [place], [address] Magnesium (Unsp spec) [Mass/ Vol]Ordered By: Anuja Murcia on 05-15-2024 Magnesium measurement (mass/volume) 1.6 mg/dL 1.5-2.2 [facility] Phosphoruson 05-15-2024 Phosphate [Mass/Vol] 3.6 mg/dL Normal 2.7-4.5 [facility] Comment on above: Performed By: #### L 501.2300, L501.5200, L500.2500, L100.0100 ####[facility] [address] [place], [address] Serum phosphorus measurement Ordered By: Anuja Murcia on 05-15-2024 Serum phosphorus measurement 3.6 mg/dL 2.7-4.5 [facility] ALP [Catalytic activity/Vol] Ordered By: Kanwal Lauren on 05-14-2024 Serum or plasma alkaline phosphatase measurement 100 U/L 35-104 [facility] ALT [Catalytic activity/Vol] Ordered By: [facility] Lauren on 05-14-2024 Serum or plasma alanine aminotransferase (ALT) measurement 10 U/L <35 [facility] Albumin [Mass/Vol]Ordered By : Kanwal Aguilar on 05-14-2024 Serum or plasma albumin measurement (mass/volume) 3.7 g/dL 3.4-4.8 [facility] Albumin/Globulin [Mass ratio ]Ordered By: Kanwal Lauren on 05-14-2024 Serum or plasma albumin/globulin mass ratio 1.4 RATIO 0.9-2.4 [facility] Bedside Glucoseon 05-14-2024 FINGERSTICK GLU 131 mg/dL High 74-106 [facility] Comment on above: Result Comment: GERALDO GEMENT OF PATIENT CARE PER NURSING PROTOCOL Performed By: #### L 501.080 ####[facility] [address] [place], [address] FINGERSTICK GLU 204 mg/dL High 74-106 [facility] Comment on above: Result Comment: GERALDO GEMENT OF PATIENT CARE PER NURSING PROTOCOL Performed By: #### L 501.080 ####[facility] [address] [place], [address] FINGERSTICK GLU 225 mg/dL High 74-106 [facility] Comment on above: Result Comment: GERALDO GEMENT OF PATIENT CARE PER NURSING PROTOCOL Performed By: #### L 501.080 ####[facility] [address] [place], [address] FINGERSTICK GLU 254 mg/dL High 74-106 [facility] Comment on above: Result Comment: GERALDO GEMENT OF PATIENT CARE PER NURSING PROTOCOL Performed By: #### L 501.080 ####[facility] [address] [place], [address] FINGERSTICK GLU 350 mg/dL High 74-106 [facility] Comment on above: Result Comment: GERALDO GEMENT OF PATIENT CARE PER NURSING PROTOCOL Performed By: #### L 501.080 ####[facility] [address] [place], [address] Bilirubin, totalOrdered By: Kanwal Aguilar on 05-14-2024 Bilirubin, total 0.62 mg/dL 0.00-1.30 [facility] CBC W/Diff, Automatedon Absolute Lymph 1.20 X10 3/uL Normal 0.83-4.51 [facility] Comment on above: Performed By: #### L 500.4050, L100.0100 ####[facility] [address] [place], [address] Absolute Neut 12.3 X10 3/uL High 2.0-7.7 [facility] Comment on above: Performed By: #### L 500.4050, L100.0100 ####[facility] [address] [place], [address] Basophils/100 WBC (Bld) 0.1 % Normal 0-1 [facility] Comment on above: Performed By: #### L 500.4050, L100.0100 ####[facility] [address] [place], [address] Eosinophils/100 WBC (Bld) 0.1 % Normal 0-5 [facility] Comment on above: Performed By: #### L 500.4050, L100.0100 ####[facility] [address] [place], [address] Erythrocyte distribution width (RBC) [Ratio] 13.5 % Normal 11.6-14.6 [facility] Comment on above: Performed By: #### L 500.4050, L100.0100 ####[facility] [address] [place], [address] Hematocrit (Bld) [Volume fraction] 39.9 % Normal 37-47 [facility] Comment on above: Performed By: #### L 500.4050, L100.0100 ####[facility] [address] [place], [address] Hemoglobin (Bld) [Mass/Vol] 13.0 g/dL Normal 12.0-15.0 [facility] Comment on above: Performed By: #### L 500.4050, L100.0100 ####[facility] [address] [place], [address] IG% 0.500 Normal 0.0-0.9 [facility] Comment on above: Result Comment: IG% - Immature Granulocytes (promyelocytes, myelocytes andmetamyelocytes) > 1% indicates that a LEFT SHIFT is Present. Performed By: #### L 500.4050, L100.0100 ####[facility] [address] [place], [address] Lymphocytes/100 WBC (Bld) 8.3 % Low 19-41 [facility] Comment on above: Performed By: #### L 500.4050, L100.0100 ####[facility] [address] [place], [address] MCH (RBC) [Entitic mass] 28.7 pg Normal 27.0-32.0 [facility] Comment on above: Performed By: #### L 500.4050, L100.0100 ####[facility] [address] [place], [address] MCHC (RBC) [Mass/Vol] 32.6 g/dL Normal 32-36 [facility] Comment on above: Performed By: #### L 500.4050, L100.0100 ####[facility] [address] [place], [address] MCV (RBC) [Entitic vol] 88.1 fL Normal 81-99 [facility] Comment on above: Performed By: #### L 500.4050, L100.0100 ####[facility] [address] [place], [address] Monocytes/100 WBC (Bld) 6.4 % Normal 0-10 [facility] Comment on above: Performed By: #### L 500.4050, L100.0100 ####[facility] [address] [place], [address] Neutrophils/100 WBC (Bld) 84.6 % High 47-70 [facility] Comment on above: Performed By: #### L 500.4050, L100.0100 ####[facility] [address] [place], [address] Nucleated RBC (Bld) [#/Vol] 0 10*3/uL Normal 0-5 [facility] Comment on above: Performed By: #### L 500.4050, L100.0100 ####[facility] [address] [place], [address] Platelet mean volume (Bld) [Entitic vol] 9.6 fL Normal 6.2-12.0 [facility] Comment on above: Performed By: #### L 500.4050, L100.0100 ####[facility] [address] [place], [address] Platelets (Bld) [#/Vol] 286 10*3/uL Normal 150-450 [facility] Comment on above: Performed By: #### L 500.4050, L100.0100 ####[facility] [address] [place], [address] RBC (Bld) [#/Vol] 4.53 10*6/uL Normal 4.2-5.4 [facility] Comment on above: Performed By: #### L 500.4050, L100.0100 ####[facility] [address] [place], [address] RDW SD 43.6 fl Normal 35.1-43.9 [facility] Comment on above: Performed By: #### L 500.4050, L100.0100 ####[facility] [address] [place], [address] WBC (Bld) [#/Vol] 14.5 10*3/uL High 4.4-11.0 [facility] Comment on above: Performed By: #### L 500.4050, L100.0100 ####[facility] [address] [place], [address] Comprehensive Metabolic Prof ilon 05-14-2024 Albumin [Mass/Vol] 3.7 g/dL Normal 3.4-4.8 [facility] Comment on above: Performed By: #### L 500.4050, L100.0100 ####[facility] [address] [place], [address] Albumin/Globulin [Mass ratio] 1.4 {ratio} Normal 0.9-2.4 [facility] Comment on above: Performed By: #### L 500.4050, L100.0100 ####[facility] [address] [place], [address] ALK PHOS 100 U/L Normal 35-104 [facility] Comment on above: Performed By: #### L 500.4050, L100.0100 ####[facility] [address] [place], [address] ALT [Catalytic activity/Vol] 10 U/L Normal <=34 [facility] Comment on above: Performed By: #### L 500.4050, L100.0100 ####[facility] [address] [place], [address] AST [Catalytic activity/Vol] 21 U/L Normal <=31 [facility] Comment on above: Performed By: #### L 500.4050, L100.0100 ####[facility] [address] [place], [address] Bilirubin [Mass/Vol] 0.62 mg/dL Normal 0.00-1.30 [facility] Comment on above: Performed By: #### L 500.4050, L100.0100 ####[facility] [address] [place], [address] BUN/CRE 12.7 RATIO Normal 10-20 [facility] Comment on above: Performed By: #### L 500.4050, L100.0100 ####[facility] [address] [place], [address] Calcium [Mass/Vol] 8.8 mg/dL Normal 7.6-11.0 [facility] Comment on above: Performed By: #### L 500.4050, L100.0100 ####[facility] [address] [place], [address] Chloride [Moles/Vol] 103 mmol/L Normal 98-108 [facility] Comment on above: Performed By: #### L 500.4050, L100.0100 ####[facility] [address] [place], [address] CO2 [Moles/Vol] 16.4 mmol/L Low 21.0-32.0 [facility] Comment on above: Performed By: #### L 500.4050, L100.0100 ####[facility] [address] [place], [address] Creatinine [Mass/Vol] 1.79 mg/dL High 0.70-1.20 [facility] Comment on above: Performed By: #### L 500.4050, L100.0100 ####[facility] [address] [place], [address] ECRCL 26.43 ml/min Low 50-250 [facility] Comment on above: Performed By: #### L 500.4050, L100.0100 ####[facility] [address] [place], [address] GAP 15 Normal 5-15 [facility] Comment on above: Performed By: #### L 500.4050, L100.0100 ####[facility] [address] [place], [address] GFR/1.73 sq M.predicted among non-blacks MDRD (S/P/Bld) [Vol rate/Area] 30 mL/min/{1.73_m2} Low >60 [facility] Comment on above: Result Comment: mL/m in/1.73m2 CKD-EPI Creatinine Equation (2020) Performed By: #### L 500.4050, L100.0100 ####[facility] [address] [place], [address] Globulin (S) [Mass/Vol] 2.8 g/dL Normal 2.2-4.2 [facility] Comment on above: Performed By: #### L 500.4050, L100.0100 ####[facility] [address] [place], [address] Glucose [Mass/Vol] 267 mg/dL High 70-99 [facility] Comment on above: Performed By: #### L 500.4050, L100.0100 ####[facility] [address] [place], [address] Potassium [Moles/Vol] 3.6 mmol/L Normal 3.3-5.1 [facility] Comment on above: Performed By: #### L 500.4050, L100.0100 ####[facility] [address] [place], [address] Sodium [Moles/Vol] 134 mmol/L Normal 133-145 [facility] Comment on above: Performed By: #### L 500.4050, L100.0100 ####[facility] [address] [place], [address] T PROT 6.5 g/dL Normal 5.9-8.4 [facility] Comment on above: Performed By: #### L 500.4050, L100.0100 ####[facility] [address] [place], [address] Urea nitrogen [Mass/Vol] 23 mg/dL High 4-19 [facility] Comment on above: Performed By: #### L 500.4050, L100.0100 ####[facility] [address] [place], [address] Kidney and Bladderon 025 Kidney and Bladder Normal [facility] No Panel InformationOrdered By: Kanwal Aguilar on 05-14-2024 21 U/L <32 [facility] Serum globulin measurementOr dered By: Kanwal Aguilar on 05-14-2024 Serum globulin measurement 2.8 g/dL 2.2-4.2 [facility] Total proteinOrdered By: Luciana Aguilar on 05-14-2024 Total protein 6.5 g/dL 5.9-8.4 [facility] Absolute neutrophil countOrd ered By: Adria Montenegro on 05-13-2024 Absolute neutrophil count 15.0 X10^3/uL High 2.0-7.7 [facility] Anion gap [Moles/Vol]Ordered By: Adria Montenegro on 05-13-2024 Anion gap in Serum or Plasma 21 High 5-15 [facility] BUN/creatinine ratioOrdered By: Adria Montenegro on 05-13-2024 BUN/creatinine ratio 14.7 RATIO 10-20 [facility] Basic Metabolic Profile (BMP )on 05-13-2024 BUN/CRE 14.7 RATIO Normal 10-20 [facility] Comment on above: Performed By: #### L 100.0100, L500.2500 ####[facility] [address] [place], [address] Calcium [Mass/Vol] 9.6 mg/dL Normal 7.6-11.0 [facility] Comment on above: Performed By: #### L 100.0100, L500.2500 ####[facility] [address] [place], [address] Chloride [Moles/Vol] 103 mmol/L Normal 98-108 [facility] Comment on above: Performed By: #### L 100.0100, L500.2500 ####[facility] [address] [place], [address] CO2 [Moles/Vol] 13.8 mmol/L Low 21.0-32.0 [facility] Comment on above: Performed By: #### L 100.0100, L500.2500 ####[facility] [address] [place], [address] Creatinine [Mass/Vol] 1.13 mg/dL Normal 0.70-1.20 [facility] Comment on above: Performed By: #### L 100.0100, L500.2500 ####[facility] [address] [place], [address] ECRCL 45.46 ml/min Low 50-250 [facility] Comment on above: Performed By: #### L 100.0100, L500.2500 ####[facility] [address] [place], [address] GAP 21 High 5-15 [facility] Comment on above: Performed By: #### L 100.0100, L500.2500 ####[facility] [address] [place], [address] GFR/1.73 sq M.predicted among non-blacks MDRD (S/P/Bld) [Vol rate/Area] 52 mL/min/{1.73_m2} Low >60 [facility] Comment on above: Result Comment: mL/m in/1.73m2 CKD-EPI Creatinine Equation (2020) Performed By: #### L 100.0100, L500.2500 ####[facility] [address] [place], [address] Glucose [Mass/Vol] 177 mg/dL High 70-99 [facility] Comment on above: Performed By: #### L 100.0100, L500.2500 ####[facility] [address] [place], [address] Potassium [Moles/Vol] 3.8 mmol/L Normal 3.3-5.1 [facility] Comment on above: Result Comment: Hemo lysis present, Results??could be affected.?? Performed By: #### L 100.0100, L500.2500 ####[facility] [address] [place], [address] Sodium [Moles/Vol] 137 mmol/L Normal 133-145 [facility] Comment on above: Performed By: #### L 100.0100, L500.2500 ####[facility] [address] [place], [address] Urea nitrogen [Mass/Vol] 17 mg/dL Normal 4-19 [facility] Comment on above: Performed By: #### L 100.0100, L500.2500 ####[facility] [address] [place], [address] Brain/Head without Contrasto n 05-13-2024 Brain/Head without Contrast Normal [facility] CBC W/Diff, Automatedon 04-0 1-2025 Absolute Lymph 0.85 X10 3/uL Normal 0.83-4.51 [facility] Comment on above: Performed By: #### L 100.0100, L500.2500 ####[facility] [address] [place], [address] Absolute Neut 15.0 X10 3/uL High 2.0-7.7 [facility] Comment on above: Performed By: #### L 100.0100, L500.2500 ####[facility] [address] [place], [address] Basophils/100 WBC (Bld) 0.1 % Normal 0-1 [facility] Comment on above: Performed By: #### L 100.0100, L500.2500 ####[facility] [address] [place], [address] Eosinophils/100 WBC (Bld) 0.1 % Normal 0-5 [facility] Comment on above: Performed By: #### L 100.0100, L500.2500 ####[facility] [address] [place], [address] Erythrocyte distribution width (RBC) [Ratio] 13.2 % Normal 11.6-14.6 [facility] Comment on above: Performed By: #### L 100.0100, L500.2500 ####[facility] [address] [place], [address] Hematocrit (Bld) [Volume fraction] 41.4 % Normal 37-47 [facility] Comment on above: Performed By: #### L 100.0100, L500.2500 ####[facility] [address] [place], [address] Hemoglobin (Bld) [Mass/Vol] 13.9 g/dL Normal 12.0-15.0 [facility] Comment on above: Performed By: #### L 100.0100, L500.2500 ####[facility] [address] [place], [address] IG% 0.800 Normal 0.0-0.9 [facility] Comment on above: Result Comment: IG% - Immature Granulocytes (promyelocytes, myelocytes andmetamyelocytes) > 1% indicates that a LEFT SHIFT is Present. Performed By: #### L 100.0100, L500.2500 ####[facility] [address] [place], [address] Lymphocytes/100 WBC (Bld) 5.0 % Low 19-41 [facility] Comment on above: Performed By: #### L 100.0100, L500.2500 ####[facility] [address] [place], [address] MCH (RBC) [Entitic mass] 29.1 pg Normal 27.0-32.0 [facility] Comment on above: Performed By: #### L 100.0100, L500.2500 ####[facility] [address] [place], [address] MCHC (RBC) [Mass/Vol] 33.6 g/dL Normal 32-36 [facility] Comment on above: Performed By: #### L 100.0100, L500.2500 ####[facility] [address] [place], [address] MCV (RBC) [Entitic vol] 86.6 fL Normal 81-99 [facility] Comment on above: Performed By: #### L 100.0100, L500.2500 ####[facility] [address] [place], [address] Monocytes/100 WBC (Bld) 6.1 % Normal 0-10 [facility] Comment on above: Performed By: #### L 100.0100, L500.2500 ####[facility] [address] [place], [address] Neutrophils/100 WBC (Bld) 87.9 % High 47-70 [facility] Comment on above: Performed By: #### L 100.0100, L500.2500 ####[facility] [address] [place], [address] Nucleated RBC (Bld) [#/Vol] 0 10*3/uL Normal 0-5 [facility] Comment on above: Performed By: #### L 100.0100, L500.2500 ####[facility] [address] [place], [address] Platelet mean volume (Bld) [Entitic vol] 9.4 fL Normal 6.2-12.0 [facility] Comment on above: Performed By: #### L 100.0100, L500.2500 ####[facility] [address] [place], [address] Platelets (Bld) [#/Vol] 296 10*3/uL Normal 150-450 [facility] Comment on above: Performed By: #### L 100.0100, L500.2500 ####[facility] [address] [place], [address] RBC (Bld) [#/Vol] 4.78 10*6/uL Normal 4.2-5.4 [facility] Comment on above: Performed By: #### L 100.0100, L500.2500 ####[facility] [address] [place], [address] RDW SD 41.1 fl Normal 35.1-43.9 [facility] Comment on above: Performed By: #### L 100.0100, L500.2500 ####[facility] [address] [place], [address] WBC (Bld) [#/Vol] 17.0 10*3/uL High 4.4-11.0 [facility] Comment on above: Performed By: #### L 100.0100, L500.2500 ####[facility] [address] [place], [address] Calcium [Mass/Vol]Ordered By : Adria Montenegro on 05-13-2024 Serum or plasma calcium measurement (mass/volume) 9.6 mg/dL 7.6-11.0 [facility] Carbon dioxide, total [Moles /volume] in Central venous bloodOrdered By: Adria Montenegro on 05-13-2024 Carbon dioxide, total [Moles/volume] in Central venous blood 13.8 mmol/L Low 21.0-32.0 [facility] Chloride assayOrdered By: Oscar Montenegro on 05-13-2024 Chloride assay 103 mmol/L 98-108 [facility] Clarity (U)Ordered By: Adria Montenegro on 05-13-2024 Urine clarity Clear Clear [facility] Color (U)Ordered By: Adria campos on 05-13-2024 Urine color determination Yellow Yellow [facility] Creatinine [Mass/Vol]Ordered By: Adria Montenegro on 05-13-2024 Serum creatinine measurement (mass/volume) 1.13 mg/dL 0.70-1.20 [facility] Emergency Department Summary on 05-13-2024 Emergency Department Summary Normal [facility] Eosinophil percentageOrdered By: Adria Montenegro on 05-13-2024 Eosinophil percentage 0.1 % 0-1 [facility] Erythrocyte distribution wid th (RBC) [Ratio]Ordered By: Adria Montenegro on 05-13-2024 Erythrocyte distribution width ratio 13.2 % 11.6-14.6 [facility] Erythrocyte distribution width standard deviation 41.1 fl 35.1-43.9 [facility] Estimation of creatinine maribel aranceOrdered By: Adria Montenegro on 05-13-2024 Estimation of creatinine clearance 45.46 ml/min Low 50-250 [facility] GFR/1.73 sq M.predicted shorty g non-blacks MDRD (S/P/Bld) [Vol rate/Area]Ordered By: Adria Montenegro on 05-13-2024 Glomerular filtration rate (GFR) estimation/1.73 sq m using serum, plasma, or whole b 52 Low >60 [facility] Glucose Ql (U)Ordered By: Oscar Montenegro on 05-13-2024 Urine glucose detection 50 mg/dl High Normal [facility] Glucose [Mass/Vol]Ordered By : Adria Montenegro on 05-13-2024 Serum glucose measurement (mass/volume) 177 mg/dL High 70-99 [facility] H AND P Exam - [facility] 05-13-2024 H&P Exam - Hospitalist Normal [facility] Hematocrit Auto (Bld) [Volum e fraction]Ordered By: Adria Montenegro on 05-13-2024 Automated blood hematocrit (percentage) 41.4 % 37-47 [facility] Hemoglobin measurementOrdere d By: Adria Montenegro on 05-13-2024 Hemoglobin measurement 13.9 g/dL 12.0-15.0 [facility] Immature granulocytes/100 WB C Auto (Bld)Ordered By: Adria Montenegro on 05-13-2024 Automated immature granulocyte percentage 0.800 % 0.0-0.9 [facility] Ketones Test strip Ql (U)Ord ered By: Adria Montenegro on 05-13-2024 Urine ketones detection by test strip 15 mg/dl High Negative [facility] L509.7001on 05-13-2024 Procalcitonin 0.08 ng/mL Normal <=0.10 [facility] Comment on above: Result Comment: Inte rpretation:<0.10-0.25 ng/mL: Antibiotic therapy discouraged. Bacterialinfection unlikely.0.25-0.50 ng/mL: Antibiotic therapy encouraged. Bacterialinfection possible.>0.50 ng/mL: Antibiotic therapy strongly encouraged.Suggestive of presence of bacterial infection.PCT should always be interpreted in the clinical context ofthe patient. Therefore, clinicians should use the PCTresults in conjunction with other laboratory findings andclinical signs of the patient. Performed By: #### L 509.7001 ####[facility] [address] [place], [address] Lymphocytes Auto (Unsp spec) [#/Vol]Ordered By: Adria Montenegro on 05-13-2024 Absolute lymphocyte count 0.85 X10^3/uL 0.83-4.51 [facility] Lymphocytes/100 WBC Auto (Un sp spec)Ordered By: Adria Montenegro on 05-13-2024 Automated lymphocyte count as percentage of total leukocytes 5.0 % Low 19-41 [facility] MCV (RBC) [Entitic vol]Order ed By: Adria Montenegro on 05-13-2024 MCV (mean corpuscular volume) determination 86.6 fL 81-99 [facility] Mean corpuscular hemoglobin (MCH) determinationOrdered By: Adria Montenegro on 05-13-2024 Mean corpuscular hemoglobin (MCH) determination 29.1 pg 27.0-32.0 [facility] Mean corpuscular hemoglobin concentration (MCHC) determinationOrdered By: Adria Montenegro on 05-13-2024 Mean corpuscular hemoglobin concentration (MCHC) determination 33.6 g/dL 32-36 [facility] Mean platelet volume determi nationOrdered By: Adria Montenegro on 05-13-2024 Mean platelet volume determination 9.4 fl 6.2-12.0 [facility] Microscopic analysis of urin e for red blood cells (RBC)Ordered By: Adria Montenegro on 05-13-2024 Microscopic analysis of urine for red blood cells (RBC) 0 SEEN /hpf [facility] Monocyte percentageOrdered B y: Adria Montengero on 05-13-2024 Monocyte percentage 6.1 % 0-10 [facility] Neutrophil percentageOrdered By: Adria Montenegro on 05-13-2024 Neutrophil percentage 87.9 % High 47-70 [facility] No Panel InformationOrdered By: Kanwal White on 05-13-2024 0.08 ng/mL <0.11 [facility] Nucleated red blood cell per centageOrdered By: Adria Montenegro on 05-13-2024 Nucleated red blood cell percentage 0 % 0-5 [facility] Platelet countOrdered By: Oscar Montenegro on 05-13-2024 Platelet count 296 K/mm3 150-450 [facility] Potassium (Unsp spec) [Mass/ Vol]Ordered By: Adria Montenegro on 05-13-2024 Potassium measurement (mass/volume) 3.8 mmol/L 3.3-5.1 [facility] Protein Test strip Ql (U)Ord ered By: Adria Montenegro on 05-13-2024 Urine protein assay by test strip, semi-quantitative 100 mg/dl High Negative [facility] RBC Auto (Bld) [#/Vol]Ordere d By: Adria Montenegro on 05-13-2024 Automated blood erythrocyte count 4.78 M/mm3 4.2-5.4 [facility] Sodium levelOrdered By: Adria Montenegro on 05-13-2024 Sodium level 137 mmol/L 133-145 [facility] Specific gravity (U) [Rel de nsity]Ordered By: Adria Montenegro on 05-13-2024 Urine specific gravity measurement 1.010 1.002-1.030 [facility] Spine Lumbar without Contras ton 05-13-2024 Spine Lumbar without Contrast Normal [facility] Urea nitrogen [Mass/Vol]Orde red By: Adria Montenegro on 05-13-2024 Serum or plasma urea nitrogen measurement (mass/volume) 17 mg/dL 4-19 [facility] Urinalysis, Completeon 05-13 WBC 0-5 SEEN Normal 0-5 [facility] Comment on above: Order Comment: DAYAN CTOR TO SPECIFY Performed By: #### L 400.0001 ####[facility] [address] [place], [address] BACTERIA 0 SEEN Normal None Seen [facility] Comment on above: Order Comment: DAYAN CTOR TO SPECIFY Performed By: #### L 400.0001 ####[facility] [address] [place], [address] EPI,SQUAMOUS 0 SEEN Normal 5-10 [facility] Comment on above: Order Comment: DAYAN CTOR TO SPECIFY Performed By: #### L 400.0001 ####[facility] [address] [place], [address] Mucus Ql (Urine sed) 0 SEEN Normal [facility] Comment on above: Order Comment: DAYAN CTOR TO SPECIFY Performed By: #### L 400.0001 ####[facility] [address] [place], [address] RBC 0 SEEN Normal 0-5 [facility] Comment on above: Order Comment: COLLE CTOR TO SPECIFY Performed By: #### L 400.0001 ####[facility] [address] [place], [address] Urine blood detectionOrdered By: Adria Montenegro on 05-13-2024 Urine blood detection 10 /ul High Negative [facility] Urine total bilirubin detect ion by test stripOrdered By: Adria Montenegro on 05-13-2024 Urine total bilirubin detection by test strip Negative Negative [facility] Urobilinogen Ql (U)Ordered B y: Adria Montenegro on 05-13-2024 Urine urobilinogen measurement Normal mg/dl Normal [facility] White blood cell (WBC) count Ordered By: Adria Montenegro on 05-13-2024 White blood cell (WBC) count 17.0 K/mm3 High 4.4-11.0 [facility] White blood cell countOrdere d By: Adria Montenegro on 05-13-2024 White blood cell count 0-5 SEEN /hpf 0-5 [facility] pH (U)Ordered By: Adria Fang ca on 05-13-2024 Urine pH 6.0 5.0 - 8.0 [facility] Culture, Blood (WB)on 2024 CUB Blood cultures x2, f rom two different sites No growth in 5 days. Normal [facility] Comment on above: Performed By: #### L 500.4050, L503.6005, L300.3900, L300.4310, M200.1000, L501.3620, L100.0100 ####[facility] [address] [place], [address] Bedside Glucoseon 04-24-2024 FINGERSTICK GLU 176 mg/dL High 74-106 [facility] Comment on above: Result Comment: GERALDO BEGUM OF PATIENT CARE PER NURSING PROTOCOL Performed By: #### L 501.080 ####[facility] [address] [place], [address] FINGERSTICK GLU 159 mg/dL High 74-106 [facility] Comment on above: Result Comment: GERALDO GEMENT OF PATIENT CARE PER NURSING PROTOCOL Performed By: #### L 501.080 ####[facility] [address] [place], [address] FINGERSTICK GLU 171 mg/dL High 74-106 [facility] Comment on above: Result Comment: GERALDO GEMENT OF PATIENT CARE PER NURSING PROTOCOL Performed By: #### L 501.080 ####[facility] [address] [place], [address] FINGERSTICK GLU 142 mg/dL High 74-106 [facility] Comment on above: Result Comment: GERALDO GEMENT OF PATIENT CARE PER NURSING PROTOCOL Performed By: #### L 501.080 ####[facility] [address] [place], [address] Glucose measurement at bedsi deOrdered By: John Short on 04-24-2024 Glucose measurement at bedside 176 mg/dL High 74-106 [facility] Urine Cultureon 04-24-2024 URC Normal [facility] Comment on above: Performed By: #### M 100.2200, M100.678, L400.0001 ####[facility] [address] [place], [address] Absolute neutrophil countOrd ered By: John Short on 04-23-2024 Absolute neutrophil count 5.6 X10^3/uL 2.0-7.7 [facility] Anion gap [Moles/Vol]Ordered By: John Short on 04-23-2024 Anion gap in Serum or Plasma 9 5-15 [facility] BUN/creatinine ratioOrdered By: John Short on 04-23-2024 BUN/creatinine ratio 18.3 RATIO 10-20 [facility] Basic Metabolic Profile (BMP )on 04-23-2024 BUN/CRE 18.3 RATIO Normal - [facility] Comment on above: Performed By: #### L 500.2500 ####[facility] [address] [place], [address] Calcium [Mass/Vol] 8.7 mg/dL Normal 7.6-11.0 [facility] Comment on above: Performed By: #### L 500.2500 ####[facility] [address] [place], [address] Chloride [Moles/Vol] 111 mmol/L High 98-108 [facility] Comment on above: Performed By: #### L 500.2500 ####[facility] [address] [place], [address] CO2 [Moles/Vol] 23.1 mmol/L Normal 21.0-32.0 [facility] Comment on above: Performed By: #### L 500.2500 ####[facility] [address] [place], [address] Creatinine [Mass/Vol] 0.79 mg/dL Normal 0.70-1.20 [facility] Comment on above: Performed By: #### L 500.2500 ####[facility] [address] [place], [address] ECRCL 64.42 ml/min Normal 50-250 [facility] Comment on above: Performed By: #### L 500.2500 ####[facility] [address] [place], [address] GAP 9 Normal 5-15 [facility] Comment on above: Performed By: #### L 500.2500 ####[facility] [address] [place], [address] GFR/1.73 sq M.predicted among non-blacks MDRD (S/P/Bld) [Vol rate/Area] 80 mL/min/{1.73_m2} Normal >60 [facility] Comment on above: Result Comment: mL/m in/1.73m2 CKD-EPI Creatinine Equation (2020) Performed By: #### L 500.2500 ####[facility] [address] [place], [address] Glucose [Mass/Vol] 112 mg/dL High 70-99 [facility] Comment on above: Performed By: #### L 500.2500 ####[facility] [address] [place], [address] Potassium [Moles/Vol] 3.3 mmol/L Normal 3.3-5.1 [facility] Comment on above: Performed By: #### L 500.2500 ####[facility] [address] [place], [address] Sodium [Moles/Vol] 144 mmol/L Normal 133-145 [facility] Comment on above: Performed By: #### L 500.2500 ####[facility] [address] [place], [address] Urea nitrogen [Mass/Vol] 15 mg/dL Normal 4-19 [facility] Comment on above: Performed By: #### L 500.2500 ####[facility] [address] [place], [address] Basophil percentageOrdered B y: John Short on 04-23-2024 Basophil percentage 0.1 % 0-1 [facility] Bedside Glucoseon 04-23-2024 FINGERSTICK GLU 210 mg/dL High 74-106 [facility] Comment on above: Result Comment: GERALDO GEMENT OF PATIENT CARE PER NURSING PROTOCOL Performed By: #### L 501.080 ####[facility] [address] [place], [address] FINGERSTICK GLU 157 mg/dL High 74-106 [facility] Comment on above: Result Comment: GERALDO HEENT OF PATIENT CARE PER NURSING PROTOCOL Performed By: #### L 501.080 ####[facility] [address] [place], [address] FINGERSTICK GLU 153 mg/dL High 74-106 [facility] Comment on above: Result Comment: GERALDO BEGUM OF PATIENT CARE PER NURSING PROTOCOL Performed By: #### L 501.080 ####[facility] [address] [place], [address] CBC W/Diff, Automatedon 04-12 Absolute Lymph 1.87 X10 3/uL Normal 0.83-4.51 [facility] Comment on above: Performed By: #### L 100.0100 ####[facility] [address] [place], [address] Absolute Neut 5.6 X10 3/uL Normal 2.0-7.7 [facility] Comment on above: Performed By: #### L 100.0100 ####[facility] [address] [place], [address] Basophils/100 WBC (Bld) 0.1 % Normal 0-1 [facility] Comment on above: Performed By: #### L 100.0100 ####[facility] [address] [place], [address] Eosinophils/100 WBC (Bld) 1.8 % Normal 0-5 [facility] Comment on above: Performed By: #### L 100.0100 ####[facility] [address] [place], [address] Erythrocyte distribution width (RBC) [Ratio] 12.9 % Normal 11.6-14.6 [facility] Comment on above: Performed By: #### L 100.0100 ####[facility] [address] [place], [address] Hematocrit (Bld) [Volume fraction] 35.1 % Low 37-47 [facility] Comment on above: Performed By: #### L 100.0100 ####[facility] [address] [place], [address] Hemoglobin (Bld) [Mass/Vol] 11.2 g/dL Low 12.0-15.0 [facility] Comment on above: Performed By: #### L 100.0100 ####[facility] [address] [place], [address] IG% 0.400 Normal 0.0-0.9 [facility] Comment on above: Result Comment: IG% - Immature Granulocytes (promyelocytes, myelocytes andmetamyelocytes) > 1% indicates that a LEFT SHIFT is Present. Performed By: #### L 100.0100 ####[facility] [address] [place], [address] Lymphocytes/100 WBC (Bld) 23.0 % Normal 19-41 [facility] Comment on above: Performed By: #### L 100.0100 ####[facility] [address] [place], [address] MCH (RBC) [Entitic mass] 29.1 pg Normal 27.0-32.0 [facility] Comment on above: Performed By: #### L 100.0100 ####[facility] [address] [place], [address] MCHC (RBC) [Mass/Vol] 31.9 g/dL Low 32-36 [facility] Comment on above: Performed By: #### L 100.0100 ####[facility] [address] [place], [address] MCV (RBC) [Entitic vol] 91.2 fL Normal 81-99 [facility] Comment on above: Performed By: #### L 100.0100 ####[facility] [address] [place], [address] Monocytes/100 WBC (Bld) 6.2 % Normal 0-10 [facility] Comment on above: Performed By: #### L 100.0100 ####[facility] [address] [place], [address] Neutrophils/100 WBC (Bld) 68.5 % Normal 47-70 [facility] Comment on above: Performed By: #### L 100.0100 ####[facility] [address] [place], [address] Nucleated RBC (Bld) [#/Vol] 0 10*3/uL Normal 0-5 [facility] Comment on above: Performed By: #### L 100.0100 ####[facility] [address] [place], [address] Platelet mean volume (Bld) [Entitic vol] 10.0 fL Normal 6.2-12.0 [facility] Comment on above: Performed By: #### L 100.0100 ####[facility] [address] [place], [address] Platelets (Bld) [#/Vol] 176 10*3/uL Normal 150-450 [facility] Comment on above: Performed By: #### L 100.0100 ####[facility] [address] [place], [address] RBC (Bld) [#/Vol] 3.85 10*6/uL Low 4.2-5.4 [facility] Comment on above: Performed By: #### L 100.0100 ####[facility] [address] [place], [address] RDW SD 42.8 fl Normal 35.1-43.9 [facility] Comment on above: Performed By: #### L 100.0100 ####[facility] [address] [place], [address] WBC (Bld) [#/Vol] 8.1 10*3/uL Normal 4.4-11.0 [facility] Comment on above: Performed By: #### L 100.0100 ####[facility] [address] [place], [address] Calcium [Mass/Vol]Ordered By : John Short on 04-23-2024 Serum or plasma calcium measurement (mass/volume) 8.7 mg/dL 7.6-11.0 [facility] Carbon dioxide, total [Moles /volume] in Central venous bloodOrdered By: John Short on 04-23-2024 Carbon dioxide, total [Moles/volume] in Central venous blood 23.1 mmol/L 21.0-32.0 [facility] Chloride assayOrdered By: Elliot Short on 04-23-2024 Chloride assay 111 mmol/L High 98-108 [facility] Creatinine [Mass/Vol]Ordered By: John Short on 04-23-2024 Serum creatinine measurement (mass/volume) 0.79 mg/dL 0.70-1.20 [facility] Eosinophil percentageOrdered By: John Short on 04-23-2024 Eosinophil percentage 1.8 % 0-5 [facility] Erythrocyte distribution wid th (RBC) [Ratio]Ordered By: John Short on 04-23-2024 Erythrocyte distribution width ratio 12.9 % 11.6-14.6 [facility] Erythrocyte distribution wid th standard deviationOrdered By: John Short on 04-23-2024 Erythrocyte distribution width standard deviation 42.8 fl 35.1-43.9 [facility] Estimation of creatinine maribel aranceOrdered By: John Short on 04-23-2024 Estimation of creatinine clearance 64.42 ml/min 50-250 [facility] GFR/1.73 sq M.predicted shorty g non-blacks MDRD (S/P/Bld) [Vol rate/Area]Ordered By: John Short on 04-23-2024 Glomerular filtration rate (GFR) estimation/1.73 sq m using serum, plasma, or whole b 80 >60 [facility] Glucose [Mass/Vol]Ordered By : John Short on 04-23-2024 Serum glucose measurement (mass/volume) 112 mg/dL High 70-99 [facility] Hematocrit Auto (Bld) [Volum e fraction]Ordered By: John Short on 04-23-2024 Automated blood hematocrit (percentage) 35.1 % Low 37-47 [facility] Hemoglobin measurementOrdere d By: John Short on 04-23-2024 Hemoglobin measurement 11.2 g/dL Low 12.0-15.0 [facility] Immature granulocytes/100 WB C Auto (Bld)Ordered By: John Short on 04-23-2024 Automated immature granulocyte percentage 0.400 % 0.0-0.9 [facility] Lymphocytes Auto (Unsp spec) [#/Vol]Ordered By: John Short on 04-23-2024 Absolute lymphocyte count 1.87 X10^3/uL 0.83-4.51 [facility] Lymphocytes/100 WBC Auto (Un sp spec)Ordered By: John Short on 04-23-2024 Automated lymphocyte count as percentage of total leukocytes 23.0 % 19-41 [facility] MCV (RBC) [Entitic vol]Order ed By: John Short on 04-23-2024 MCV (mean corpuscular volume) determination 91.2 fL 81-99 [facility] Mean corpuscular hemoglobin (MCH) determinationOrdered By: John Short on 04-23-2024 Mean corpuscular hemoglobin (MCH) determination 29.1 pg 27.0-32.0 [facility] Mean corpuscular hemoglobin concentration (MCHC) determinationOrdered By: John Short on 04-23-2024 Mean corpuscular hemoglobin concentration (MCHC) determination 31.9 g/dL Low 32-36 [facility] Mean platelet volume determi nationOrdered By: John Short on 04-23-2024 Mean platelet volume determination 10.0 fl 6.2-12.0 [facility] Monocyte percentageOrdered B y: John Short on 04-23-2024 Monocyte percentage 6.2 % 0-10 [facility] Neutrophil percentageOrdered By: John Short on 04-23-2024 Neutrophil percentage 68.5 % 47-70 [facility] Nucleated red blood cell per centageOrdered By: John Short on 04-23-2024 Nucleated red blood cell percentage 0 % 0-5 [facility] Platelet countOrdered By: Elliot Short on 04-23-2024 Platelet count 176 K/mm3 150-450 [facility] Potassium (Unsp spec) [Mass/ Vol]Ordered By: John Short on 04-23-2024 Potassium measurement (mass/volume) 3.3 mmol/L 3.3-5.1 [facility] RBC Auto (Bld) [#/Vol]Ordere d By: John Short on 04-23-2024 Automated blood erythrocyte count 3.85 M/mm3 Low 4.2-5.4 [facility] Sodium levelOrdered By: John Short on 04-23-2024 Sodium level 144 mmol/L 133-145 [facility] Urea nitrogen [Mass/Vol]Orde red By: John Short on 04-23-2024 Serum or plasma urea nitrogen measurement (mass/volume) 15 mg/dL 4-19 [facility] White blood cell (WBC) count Ordered By: John Short on 04-23-2024 White blood cell (WBC) count 8.1 K/mm3 4.4-11.0 [facility] Basic Metabolic Profile (BMP )on 04-22-2024 BUN/CRE 25.6 RATIO High 10-20 [facility] Comment on above: Performed By: #### L 500.2500 ####[facility] [address] [place], [address] Calcium [Mass/Vol] 8.2 mg/dL Normal 7.6-11.0 [facility] Comment on above: Performed By: #### L 500.2500 ####[facility] [address] [place], [address] Chloride [Moles/Vol] 113 mmol/L High 98-108 [facility] Comment on above: Performed By: #### L 500.2500 ####[facility] [address] [place], [address] CO2 [Moles/Vol] 21.2 mmol/L Normal 21.0-32.0 [facility] Comment on above: Performed By: #### L 500.2500 ####[facility] [address] [place], [address] Creatinine [Mass/Vol] 0.91 mg/dL Normal 0.70-1.20 [facility] Comment on above: Performed By: #### L 500.2500 ####[facility] [address] [place], [address] ECRCL 55.94 ml/min Normal 50-250 [facility] Comment on above: Performed By: #### L 500.2500 ####[facility] [address] [place], [address] GAP 9 Normal 5-15 [facility] Comment on above: Performed By: #### L 500.2500 ####[facility] [address] [place], [address] GFR/1.73 sq M.predicted among non-blacks MDRD (S/P/Bld) [Vol rate/Area] 68 mL/min/{1.73_m2} Normal >60 [facility] Comment on above: Result Comment: mL/m in/1.73m2 CKD-EPI Creatinine Equation (2020) Performed By: #### L 500.2500 ####[facility] [address] [place], [address] Glucose [Mass/Vol] 120 mg/dL High 70-99 [facility] Comment on above: Performed By: #### L 500.2500 ####[facility] [address] [place], [address] Potassium [Moles/Vol] 2.9 mmol/L Low 3.3-5.1 [facility] Comment on above: Performed By: #### L 500.2500 ####[facility] [address] [place], [address] Sodium [Moles/Vol] 143 mmol/L Normal 133-145 [facility] Comment on above: Performed By: #### L 500.2500 ####[facility] [address] [place], [address] Urea nitrogen [Mass/Vol] 23 mg/dL High 4-19 [facility] Comment on above: Performed By: #### L 500.2500 ####[facility] [address] [place], [address] Bedside Glucoseon 04-22-2024 FINGERSTICK GLU 143 mg/dL High 74-106 [facility] Comment on above: Result Comment: GERALDO GEMENT OF PATIENT CARE PER NURSING PROTOCOL Performed By: #### L 501.080 ####[facility] [address] [place], [address] FINGERSTICK GLU 145 mg/dL High 74-106 [facility] Comment on above: Result Comment: GERALDO GEMENT OF PATIENT CARE PER NURSING PROTOCOL Performed By: #### L 501.080 ####[facility] [address] [place], [address] FINGERSTICK GLU 159 mg/dL High 74-106 [facility] Comment on above: Result Comment: GERALDO GEMENT OF PATIENT CARE PER NURSING PROTOCOL Performed By: #### L 501.080 ####[facility] [address] [place], [address] FINGERSTICK GLU 105 mg/dL Normal 74-106 [facility] Comment on above: Result Comment: GERALDO GEMENT OF PATIENT CARE PER NURSING PROTOCOL Performed By: #### L 501.080 ####[facility] [address] [place], [address] FINGERSTICK GLU 105 mg/dL Normal 74-106 [facility] Comment on above: Result Comment: GERALDO GEMENT OF PATIENT CARE PER NURSING PROTOCOL Performed By: #### L 501.080 ####[facility] [address] [place], [address] FINGERSTICK GLU 91 mg/dL Normal 74-106 [facility] Comment on above: Result Comment: GERALDO GEMENT OF PATIENT CARE PER NURSING PROTOCOL Performed By: #### L 501.080 ####[facility] [address] [place], [address] ALP [Catalytic activity/Vol] Ordered By: [facility] on 04-21-2024 Serum or plasma alkaline phosphatase measurement 76 U/L 35-104 [facility] ALT [Catalytic activity/Vol] Ordered By: [facility] on 04-21-2024 Serum or plasma alanine aminotransferase (ALT) measurement 20 U/L <35 [facility] Albumin [Mass/Vol]Ordered By : [facility] on 04-21-2024 Serum or plasma albumin measurement (mass/volume) 3.4 g/dL 3.4-4.8 [facility] Albumin/Globulin [Mass ratio ]Ordered By: [facility] on 04-21-2024 Serum or plasma albumin/globulin mass ratio 1.4 RATIO 0.9-2.4 [facility] Basic Metabolic Profile (BMP )on 04-21-2024 BUN/CRE 36.5 RATIO High 10-20 [facility] Comment on above: Performed By: #### L 500.2500 ####[facility] [address] [place], [address] Calcium [Mass/Vol] 8.0 mg/dL Normal 7.6-11.0 [facility] Comment on above: Performed By: #### L 500.2500 ####[facility] [address] [place], [address] Chloride [Moles/Vol] 118 mmol/L High 98-108 [facility] Comment on above: Performed By: #### L 500.2500 ####[facility] [address] [place], [address] CO2 [Moles/Vol] 20.1 mmol/L Low 21.0-32.0 [facility] Comment on above: Performed By: #### L 500.2500 ####[facility] [address] [place], [address] Creatinine [Mass/Vol] 0.93 mg/dL Normal 0.70-1.20 [facility] Comment on above: Performed By: #### L 500.2500 ####[facility] [address] [place], [address] ECRCL 54.74 ml/min Normal 50-250 [facility] Comment on above: Performed By: #### L 500.2500 ####[facility] [address] [place], [address] GAP 10 Normal 5-15 [facility] Comment on above: Performed By: #### L 500.2500 ####[facility] [address] [place], [address] GFR/1.73 sq M.predicted among non-blacks MDRD (S/P/Bld) [Vol rate/Area] 66 mL/min/{1.73_m2} Normal >60 [facility] Comment on above: Result Comment: mL/m in/1.73m2 CKD-EPI Creatinine Equation (2020) Performed By: #### L 500.2500 ####[facility] [address] [place], [address] Glucose [Mass/Vol] 104 mg/dL High 70-99 [facility] Comment on above: Performed By: #### L 500.2500 ####[facility] [address] [place], [address] Potassium [Moles/Vol] 3.4 mmol/L Normal 3.3-5.1 [facility] Comment on above: Performed By: #### L 500.2500 ####[facility] [address] [place], [address] Sodium [Moles/Vol] 148 mmol/L High 133-145 [facility] Comment on above: Performed By: #### L 500.2500 ####[facility] [address] [place], [address] Urea nitrogen [Mass/Vol] 34 mg/dL High 4-19 [facility] Comment on above: Performed By: #### L 500.2500 ####[facility] [address] [place], [address] Bedside Glucoseon 04-21-2024 FINGERSTICK GLU 84 mg/dL Normal 74-106 [facility] Comment on above: Result Comment: GERALDO GEMENT OF PATIENT CARE PER NURSING PROTOCOL Performed By: #### L 501.080 ####[facility] [address] [place], [address] FINGERSTICK GLU 89 mg/dL Normal 74-106 [facility] Comment on above: Result Comment: GERALDO GEMENT OF PATIENT CARE PER NURSING PROTOCOL Performed By: #### L 501.080 ####[facility] [address] [place], [address] FINGERSTICK GLU 122 mg/dL High 74-106 [facility] Comment on above: Result Comment: GERALDO GEMENT OF PATIENT CARE PER NURSING PROTOCOL Performed By: #### L 501.080 ####[facility] [address] [place], [address] Bilirubin, totalOrdered By: Kanwal Aguilar on 04-21-2024 Bilirubin, total 0.43 mg/dL 0.00-1.30 [facility] CBC W/Diff, Automatedon 04-12 Absolute Lymph 1.85 X10 3/uL Normal 0.83-4.51 [facility] Comment on above: Performed By: #### L 100.0100, L500.4050 ####[facility] [address] [place], [address] Absolute Neut 13.0 X10 3/uL High 2.0-7.7 [facility] Comment on above: Performed By: #### L 100.0100, L500.4050 ####[facility] [address] [place], [address] Basophils/100 WBC (Bld) 0.1 % Normal 0-1 [facility] Comment on above: Performed By: #### L 100.0100, L500.4050 ####[facility] [address] [place], [address] Eosinophils/100 WBC (Bld) 0.2 % Normal 0-5 [facility] Comment on above: Performed By: #### L 100.0100, L500.4050 ####[facility] [address] [place], [address] Erythrocyte distribution width (RBC) [Ratio] 13.2 % Normal 11.6-14.6 [facility] Comment on above: Performed By: #### L 100.0100, L500.4050 ####[facility] [address] [place], [address] Hematocrit (Bld) [Volume fraction] 39.1 % Normal 37-47 [facility] Comment on above: Performed By: #### L 100.0100, L500.4050 ####[facility] [address] [place], [address] Hemoglobin (Bld) [Mass/Vol] 12.5 g/dL Normal 12.0-15.0 [facility] Comment on above: Performed By: #### L 100.0100, L500.4050 ####[facility] [address] [place], [address] IG% 0.600 Normal 0.0-0.9 [facility] Comment on above: Result Comment: IG% - Immature Granulocytes (promyelocytes, myelocytes andmetamyelocytes) > 1% indicates that a LEFT SHIFT is Present. Performed By: #### L 100.0100, L500.4050 ####[facility] [address] [place], [address] Lymphocytes/100 WBC (Bld) 11.4 % Low 19-41 [facility] Comment on above: Performed By: #### L 100.0100, L500.4050 ####[facility] [address] [place], [address] MCH (RBC) [Entitic mass] 29.1 pg Normal 27.0-32.0 [facility] Comment on above: Performed By: #### L 100.0100, L500.4050 ####[facility] [address] [place], [address] MCHC (RBC) [Mass/Vol] 32.0 g/dL Normal 32-36 [facility] Comment on above: Performed By: #### L 100.0100, L500.4050 ####[facility] [address] [place], [address] MCV (RBC) [Entitic vol] 91.1 fL Normal 81-99 [facility] Comment on above: Performed By: #### L 100.0100, L500.4050 ####[facility] [address] [place], [address] Monocytes/100 WBC (Bld) 7.8 % Normal 0-10 [facility] Comment on above: Performed By: #### L 100.0100, L500.4050 ####[facility] [address] [place], [address] Neutrophils/100 WBC (Bld) 79.9 % High 47-70 [facility] Comment on above: Performed By: #### L 100.0100, L500.4050 ####[facility] [address] [place], [address] Nucleated RBC (Bld) [#/Vol] 0 10*3/uL Normal 0-5 [facility] Comment on above: Performed By: #### L 100.0100, L500.4050 ####[facility] [address] [place], [address] Platelet mean volume (Bld) [Entitic vol] 9.8 fL Normal 6.2-12.0 [facility] Comment on above: Performed By: #### L 100.0100, L500.4050 ####[facility] [address] [place], [address] Platelets (Bld) [#/Vol] 237 10*3/uL Normal 150-450 [facility] Comment on above: Performed By: #### L 100.0100, L500.4050 ####[facility] [address] [place], [address] RBC (Bld) [#/Vol] 4.29 10*6/uL Normal 4.2-5.4 [facility] Comment on above: Performed By: #### L 100.0100, L500.4050 ####[facility] [address] [place], [address] RDW SD 44.0 fl High 35.1-43.9 [facility] Comment on above: Performed By: #### L 100.0100, L500.4050 ####[facility] [address] [place], [address] WBC (Bld) [#/Vol] 16.2 10*3/uL High 4.4-11.0 [facility] Comment on above: Performed By: #### L 100.0100, L500.4050 ####[facility] [address] [place], [address] CK [Catalytic activity/Vol]O rdered By: Kanwal Aguilar on 04-21-2024 Serum or plasma creatine kinase activity 239 U/L High - [facility] CPK Total, Creatine Kinaseon 04-21-2024 CPK TOTAL 239 U/L High - [facility] Comment on above: Performed By: #### L 501.3620 ####[facility] [address] [place], [address] Comprehensive Metabolic Prof ilon 04-21-2024 Albumin [Mass/Vol] 3.4 g/dL Normal 3.4-4.8 [facility] Comment on above: Performed By: #### L 100.0100, L500.4050 ####[facility] [address] [place], [address] Albumin/Globulin [Mass ratio] 1.4 {ratio} Normal 0.9-2.4 [facility] Comment on above: Performed By: #### L 100.0100, L500.4050 ####[facility] [address] [place], [address] ALK PHOS 76 U/L Normal 35-104 [facility] Comment on above: Performed By: #### L 100.0100, L500.4050 ####[facility] [address] [place], [address] ALT [Catalytic activity/Vol] 20 U/L Normal <=34 [facility] Comment on above: Performed By: #### L 100.0100, L500.4050 ####[facility] [address] [place], [address] AST [Catalytic activity/Vol] 32 U/L Normal <=31 [facility] Comment on above: Performed By: #### L 100.0100, L500.4050 ####[facility] [address] [place], [address] Bilirubin [Mass/Vol] 0.43 mg/dL Normal 0.00-1.30 [facility] Comment on above: Performed By: #### L 100.0100, L500.4050 ####[facility] [address] [place], [address] BUN/CRE 36.7 RATIO High 10-20 [facility] Comment on above: Performed By: #### L 100.0100, L500.4050 ####[facility] [address] [place], [address] Calcium [Mass/Vol] 8.5 mg/dL Normal 7.6-11.0 [facility] Comment on above: Performed By: #### L 100.0100, L500.4050 ####[facility] [address] [place], [address] Chloride [Moles/Vol] 115 mmol/L High 98-108 [facility] Comment on above: Performed By: #### L 100.0100, L500.4050 ####[facility] [address] [place], [address] CO2 [Moles/Vol] 15.4 mmol/L Low 21.0-32.0 [facility] Comment on above: Performed By: #### L 100.0100, L500.4050 ####[facility] [address] [place], [address] Creatinine [Mass/Vol] 1.27 mg/dL High 0.70-1.20 [facility] Comment on above: Performed By: #### L 100.0100, L500.4050 ####[facility] [address] [place], [address] ECRCL 40.08 ml/min Low 50-250 [facility] Comment on above: Performed By: #### L 100.0100, L500.4050 ####[facility] [address] [place], [address] GAP 16 High 5-15 [facility] Comment on above: Performed By: #### L 100.0100, L500.4050 ####[facility] [address] [place], [address] GFR/1.73 sq M.predicted among non-blacks MDRD (S/P/Bld) [Vol rate/Area] 45 mL/min/{1.73_m2} Low >60 [facility] Comment on above: Result Comment: mL/m in/1.73m2 CKD-EPI Creatinine Equation (2020) Performed By: #### L 100.0100, L500.4050 ####[facility] [address] [place], [address] Globulin (S) [Mass/Vol] 2.4 g/dL Normal 2.2-4.2 [facility] Comment on above: Performed By: #### L 100.0100, L500.4050 ####[facility] [address] [place], [address] Glucose [Mass/Vol] 142 mg/dL High 70-99 [facility] Comment on above: Performed By: #### L 100.0100, L500.4050 ####[facility] [address] [place], [address] Potassium [Moles/Vol] 3.7 mmol/L Normal 3.3-5.1 [facility] Comment on above: Performed By: #### L 100.0100, L500.4050 ####[facility] [address] [place], [address] Sodium [Moles/Vol] 146 mmol/L High 133-145 [facility] Comment on above: Performed By: #### L 100.0100, L500.4050 ####[facility] [address] [place], [address] T PROT 5.8 g/dL Low 5.9-8.4 [facility] Comment on above: Performed By: #### L 100.0100, L500.4050 ####[facility] [address] [place], [address] Urea nitrogen [Mass/Vol] 47 mg/dL High 4-19 [facility] Comment on above: Performed By: #### L 100.0100, L500.4050 ####[facility] [address] [place], [address] Echocardiogram study reportO rdered By: Tiffanie Jimenez on 04-21-2024 Study report [facility] Work Phone: Electrocardiogram reportOrde red By: Sharita Azar on 04-21-2024 EKG study [facility] Work Phone: [phone] 04-21-2024 BETA-HYDROXYBUT 1.0 mmol/L Normal 0.0-0.3 [facility] Comment on above: Performed By: #### L 501.6901 ####[facility] [address] [place], [address] BETA-HYDROXYBUT 3.5 mmol/L Normal 0.0-0.3 [facility] Comment on above: Order Comment: Comme nts: may add to ED labs Performed By: #### L 501.6901, L501.5200, L501.2300 ####[facility] [address] [place], [address] Lactic Acidon 04-21-2024 Lactate [Moles/Vol] 2.1 mmol/L High 0.0-2.0 [facility] Comment on above: Order Comment: Y Performed By: #### L 503.6005 ####[facility] [address] [place], [address] Lactic acid measurementOrder ed By: Alden Finn on 04-21-2024 Lactic acid measurement 2.1 mmol/L High 0.0-2.0 [facility] Magnesiumon 04-21-2024 Magnesium [Mass/Vol] 2.1 mg/dL Normal 1.5-2.2 [facility] Comment on above: Order Comment: Comme nts: may add to ED labs Performed By: #### L 501.6901, L501.5200, L501.2300 ####[facility] [address] [place], [address] No Panel InformationOrdered By: Kanwal Aguilar on 04-21-2024 32 U/L <32 [facility] No Panel InformationOrdered By: Atul Quezada on 04-21-2024 1.0 mmol/L 0.0-0.3 [facility] Phosphoruson 04-21-2024 Phosphate [Mass/Vol] 2.2 mg/dL Low 2.7-4.5 [facility] Comment on above: Order Comment: Comme nts: may add to ED labs Performed By: #### L 501.6901, L501.5200, L501.2300 ####[facility] [address] [place], [place], [address] Serum globulin measurementOr dered By: Kanwal Aguilar on 04-21-2024 Serum globulin measurement 2.4 g/dL 2.2-4.2 [facility] Total proteinOrdered By: Luciana Aguilar on 04-21-2024 Total protein 5.8 g/dL Low 5.9-8.4 [facility] 12 Lead EKGon 04-20-2024 12 Lead EKG Normal [facility] ALP [Catalytic activity/Vol] Ordered By: Monica Alvarado on 04-20-2024 Serum or plasma alkaline phosphatase measurement 114 U/L High 35-104 [facility] ALT [Catalytic activity/Vol] Ordered By: Monica Alvarado on 04-20-2024 Serum or plasma alanine aminotransferase (ALT) measurement 25 U/L <35 [facility] Abdomen/Pelvis without Conto n 04-20-2024 Abdomen/Pelvis without Cont Normal [facility] Absolute neutrophil countOrd ered By: Monica Alvarado on 04-20-2024 Absolute neutrophil count 21.6 X10^3/uL High 2.0-7.7 [facility] Albumin [Mass/Vol]Ordered By : Monica Alvarado on 04-20-2024 Serum or plasma albumin measurement (mass/volume) 4.5 g/dL 3.4-4.8 [facility] Albumin/Globulin [Mass ratio ]Ordered By: Monica Alvarado on 04-20-2024 Serum or plasma albumin/globulin mass ratio 1.2 RATIO 0.9-2.4 [facility] Anion gap [Moles/Vol]Ordered By: Monica Alvarado on 04-20-2024 Anion gap in Serum or Plasma 29 High 5-15 [facility] Arterial patency Wrist arter y --pre arterial punctureOrdered By: Kanwal Aguilar on 04-20-2024 Assessment of wrist artery patency prior to arterial puncture Positive [facility] BUN/creatinine ratioOrdered By: Monica Alvarado on 04-20-2024 BUN/creatinine ratio 29.9 RATIO High 10-20 [facility] Bacteria LM.HPF (Urine sed) [#/Area]Ordered By: Monica Alvarado on 04-20-2024 Urine sediment bacteria count by microscopy (number/high power field) 2+ /hpf None Seen [facility] Base excess Calc (BldV) [Mol es/Vol]Ordered By: Kanwal Aguilar on 04-20-2024 Blood base excess determination -4 mmol/L Low -2-2 [facility] Basophil percentageOrdered B y: Monica Alvarado on 04-20-2024 Basophil percentage 0.1 % 0-1 [facility] Bedside Glucoseon 04-20-2024 FINGERSTICK GLU 145 mg/dL High 74-106 [facility] Comment on above: Result Comment: GERALDO GEMENT OF PATIENT CARE PER NURSING PROTOCOL Performed By: #### L 501.080 ####[facility] [address] [place], [place], [address] FINGERSTICK GLU 194 mg/dL High 74-106 [facility] Comment on above: Result Comment: GERALDO GEMENT OF PATIENT CARE PER NURSING PROTOCOL Performed By: #### L 501.080 ####[facility] [address] [place], [place], [address] Bilirubin Test strip Ql (U)O rdered By: Monica Alvarado on 04-20-2024 Urine total bilirubin detection by test strip 1 mg/dL High Negative [facility] Bilirubin, totalOrdered By: Monica Alvarado on 04-20-2024 Bilirubin, total 1.15 mg/dL 0.00-1.30 [facility] Blood Gases by CPSon 025 KYREE TEST Positive Normal [facility] Comment on above: Performed By: #### L 0.0800 ####[facility] [address] [place], [address] Base excess Calc (Bld) [Moles/Vol] -4 mmol/L Low -2 to +2 [facility] Comment on above: Performed By: #### L 8999.0800 ####[facility] [address] [place], [address] Blood Gas Type ART Normal [facility] Comment on above: Performed By: #### L 0.0800 ####[facility] [address] [place], [address] CO2 [Moles/Vol] 22 mmol/L Normal [facility] Comment on above: Performed By: #### L 8999.0800 ####[facility] [address] [place], [address] FI02 21.0 Normal [facility] Comment on above: Performed By: #### L 0.0800 ####[facility] [address] [place], [address] HCO3 (Bld) [Moles/Vol] 20.6 mmol/L Low 22-26 [facility] Comment on above: Performed By: #### L 0.0800 ####[facility] [address] [place], [address] Mode Not entered Normal [facility] Comment on above: Performed By: #### L 0.0800 ####[facility] [address] [place], [address] O2 Delivery Dev Room Air Normal [facility] Comment on above: Performed By: #### L 0.0800 ####[facility] [address] [place], [address] pCO2 30.5 mmHg Low 35-45 [facility] Comment on above: Performed By: #### L 9000.0800 ####[facility] [address] [place], [address] pH (Bld) 7.44 [pH] Normal 7.35-7.45 [facility] Comment on above: Performed By: #### L 9000.0800 ####[facility] [address] [place], [address] PO2 70 mmHG Low 75-100 [facility] Comment on above: Performed By: #### L 9000.0800 ####[facility] [address] [place], [address] SITE R Brach Normal [facility] Comment on above: Performed By: #### L 9000.0800 ####[facility] [address] [place], [address] SO2 95 Normal 95-99 [facility] Comment on above: Performed By: #### L 9000.0800 ####[facility] [address] [place], [address] Blood bicarbonate measuremen tOrdered By: Kanwal Aguilar on 04-20-2024 Blood bicarbonate measurement 20.6 mmol/L Low 22-26 [facility] Blood cultureOrdered By: Kadie Alvarado on 04-20-2024 Blood culture No growth in 5 days. [facility] Blood culture No growth in 5 days. [facility] Brain/Head without Contrasto n 04-20-2024 Brain/Head without Contrast Normal [facility] CBC W/Diff, Automatedon 03-0 SMEAR COMMENT SCANNED Normal [facility] Comment on above: Result Comment: NEUT ROPHILIA NOTED Performed By: #### L 500.4050, L503.6005, L300.3900, L300.4310, M200.1000, L501.3620, L100.0100 ####[facility] [address] [place], [place], [id number] CK [Catalytic activity/Vol]O rdered By: Monica Alvarado on 04-20-2024 Serum or plasma creatine kinase activity 762 U/L High [facility] CPK Total, Creatine Kinaseon 04-20-2024 CPK TOTAL 762 U/L High - [facility] Comment on above: Performed By: #### L 500.4050, L503.6005, L300.3900, L300.4310, M200.1000, L501.3620, L100.0100 ####[facility] [address] [place], [place], [address] Calcium [Mass/Vol]Ordered By : Monica Alvarado on 04-20-2024 Serum or plasma calcium measurement (mass/volume) 10.7 mg/dL 7.6-11.0 [facility] Carbon dioxide, total [Moles /volume] in Central venous bloodOrdered By: Monica Alvarado on 04-20-2024 Carbon dioxide, total [Moles/volume] in Central venous blood 12.2 mmol/L Low 21.0-32.0 [facility] Chest without Contraston Chest without Contrast Normal [facility] Chloride assayOrdered By: Eleni Alvarado on 04-20-2024 Chloride assay 103 mmol/L 98-108 [facility] Clarity (U)Ordered By: Monica Alvarado on 04-20-2024 Urine clarity Sl. Cloudy Clear [facility] Color (U)Ordered By: Monica goddard on 04-20-2024 Urine color determination Yellow Yellow [facility] Comprehensive Metabolic Prof ilon 04-20-2024 Albumin [Mass/Vol] 4.5 g/dL Normal 3.4-4.8 [facility] Comment on above: Performed By: #### L 500.4050, L503.6005, L300.3900, L300.4310, M200.1000, L501.3620, L100.0100 ####[facility] [address] [place], [address] Albumin/Globulin [Mass ratio] 1.2 {ratio} Normal 0.9-2.4 [facility] Comment on above: Performed By: #### L 500.4050, L503.6005, L300.3900, L300.4310, M200.1000, L501.3620, L100.0100 ####[facility] [address] [place], [address] ALK PHOS 114 U/L High 35-104 [facility] Comment on above: Performed By: #### L 500.4050, L503.6005, L300.3900, L300.4310, M200.1000, L501.3620, L100.0100 ####[facility] [address] [place], [address] ALT [Catalytic activity/Vol] 25 U/L Normal <=34 [facility] Comment on above: Performed By: #### L 500.4050, L503.6005, L300.3900, L300.4310, M200.1000, L501.3620, L100.0100 ####[facility] [address] [place], [address] AST [Catalytic activity/Vol] 70 U/L High <=31 [facility] Comment on above: Performed By: #### L 500.4050, L503.6005, L300.3900, L300.4310, M200.1000, L501.3620, L100.0100 ####[facility] [address] [place], [address] Bilirubin [Mass/Vol] 1.15 mg/dL Normal 0.00-1.30 [facility] Comment on above: Performed By: #### L 500.4050, L503.6005, L300.3900, L300.4310, M200.1000, L501.3620, L100.0100 ####[facility] [address] [place], [address] BUN/CRE 29.9 RATIO High 10-20 [facility] Comment on above: Performed By: #### L 500.4050, L503.6005, L300.3900, L300.4310, M200.1000, L501.3620, L100.0100 ####[facility] [address] [place], [address] Calcium [Mass/Vol] 10.7 mg/dL Normal 7.6-11.0 [facility] Comment on above: Performed By: #### L 500.4050, L503.6005, L300.3900, L300.4310, M200.1000, L501.3620, L100.0100 ####[facility] [address] [place], [address] Chloride [Moles/Vol] 103 mmol/L Normal 98-108 [facility] Comment on above: Performed By: #### L 500.4050, L503.6005, L300.3900, L300.4310, M200.1000, L501.3620, L100.0100 ####[facility] [address] [place], [address] CO2 [Moles/Vol] 12.2 mmol/L Low 21.0-32.0 [facility] Comment on above: Performed By: #### L 500.4050, L503.6005, L300.3900, L300.4310, M200.1000, L501.3620, L100.0100 ####[facility] [address] [place], [address] Creatinine [Mass/Vol] 1.57 mg/dL High 0.70-1.20 [facility] Comment on above: Performed By: #### L 500.4050, L503.6005, L300.3900, L300.4310, M200.1000, L501.3620, L100.0100 ####[facility] [address] [place], [address] ECRCL 30.00 ml/min Low 50-250 [facility] Comment on above: Performed By: #### L 500.4050, L503.6005, L300.3900, L300.4310, M200.1000, L501.3620, L100.0100 ####[facility] [address] [place], [address] GAP 29 High 5-15 [facility] Comment on above: Performed By: #### L 500.4050, L503.6005, L300.3900, L300.4310, M200.1000, L501.3620, L100.0100 ####[facility] [address] [place], [place], [phone] GFR/1.73 sq M.predicted among non-blacks MDRD (S/P/Bld) [Vol rate/Area] 35 mL/min/{1.73_m2} Low >60 [facility] Comment on above: Result Comment: mL/m in/1.73m2 CKD-EPI Creatinine Equation (2020) Performed By: #### L 500.4050, L503.6005, L300.3900, L300.4310, M200.1000, L501.3620, L100.0100 ####[facility] [address] [place], [address] Globulin (S) [Mass/Vol] 3.6 g/dL Normal 2.2-4.2 [facility] Comment on above: Performed By: #### L 500.4050, L503.6005, L300.3900, L300.4310, M200.1000, L501.3620, L100.0100 ####[facility] [address] [place], [address] Glucose [Mass/Vol] 231 mg/dL High 70-99 [facility] Comment on above: Performed By: #### L 500.4050, L503.6005, L300.3900, L300.4310, M200.1000, L501.3620, L100.0100 ####[facility] [address] [place], [address] Potassium [Moles/Vol] 4.0 mmol/L Normal 3.3-5.1 [facility] Comment on above: Result Comment: Hemo lysis present, Results??could be affected.?? Performed By: #### L 500.4050, L503.6005, L300.3900, L300.4310, M200.1000, L501.3620, L100.0100 ####[facility] [address] [place], [address] Sodium [Moles/Vol] 144 mmol/L Normal 133-145 [facility] Comment on above: Performed By: #### L 500.4050, L503.6005, L300.3900, L300.4310, M200.1000, L501.3620, L100.0100 ####[facility] [address] [place], [address] T PROT 8.1 g/dL Normal 5.9-8.4 [facility] Comment on above: Performed By: #### L 500.4050, L503.6005, L300.3900, L300.4310, M200.1000, L501.3620, L100.0100 ####[facility] [address] [place], [address] Urea nitrogen [Mass/Vol] 47 mg/dL High 4-19 [facility] Comment on above: Performed By: #### L 500.4050, L503.6005, L300.3900, L300.4310, M200.1000, L501.3620, L100.0100 ####[facility] [address] [place], [address] Consultation - Intensiviston 04-20-2024 Consultation - Chief Dog License Inspector Normal [facility] Creatinine [Mass/Vol]Ordered By: Monica Alvarado on 04-20-2024 Serum creatinine measurement (mass/volume) 1.57 mg/dL High 0.70-1.20 [facility] Determination of fraction of inspired oxygenOrdered By: Kanwal Aguilar on 04-20-2024 Determination of fraction of inspired oxygen 21.0 [facility] Echo Completeon 04-20-2024 Echo Complete Normal [facility] Emergency Department Summary on 04-20-2024 Emergency Department Summary Normal [facility] Eosinophil percentageOrdered By: Monica Alvarado on 04-20-2024 Eosinophil percentage 0.0 % 0-5 [facility] Erythrocyte distribution wid th (RBC) [Entitic vol]Ordered By: Monica Alvarado on 04-20-2024 Erythrocyte distribution width standard deviation 40.4 fl 35.1-43.9 [facility] Erythrocyte distribution wid th (RBC) [Ratio]Ordered By: Monica Alvarado on 04-20-2024 Erythrocyte distribution width ratio 13.0 % 11.6-14.6 [facility] Estimation of creatinine maribel aranceOrdered By: Monica Alvarado on 04-20-2024 Estimation of creatinine clearance 30.00 ml/min Low 50-250 [facility] GFR/1.73 sq M.predicted shorty g non-blacks MDRD (S/P/Bld) [Vol rate/Area]Ordered By: Monica Alvarado on 04-20-2024 Glomerular filtration rate (GFR) estimation/1.73 sq m using serum, plasma, or whole b 35 Low >60 [facility] Glucose [Mass/Vol]Ordered By : Monica Alvarado on 04-20-2024 Serum glucose measurement (mass/volume) 231 mg/dL High 70-99 [facility] Glucose measurement at bedsi deOrdered By: Joe Preston on 04-20-2024 Glucose measurement at bedside 194 mg/dL High 74-106 [facility] H AND P Exam - Hospitaliston 04-20-2024 H&P Exam - Hospitalist Normal [facility] Hematocrit Auto (Bld) [Volum e fraction]Ordered By: Monica Alvarado on 04-20-2024 Automated blood hematocrit (percentage) 51.0 % High 37-47 [facility] Hemoglobin measurementOrdere d By: Monica Alvarado on 04-20-2024 Hemoglobin measurement 17.1 g/dL High 12.0-15.0 [facility] Immature granulocytes/100 WB C Auto (Bld)Ordered By: Monica Alvarado on 04-20-2024 Automated immature granulocyte percentage 0.800 % 0.0-0.9 [facility] International normalized rat io (INR) calculationOrdered By: Monica Alvarado on 04-20-2024 International normalized ratio (INR) calculation 1.2 [facility] Ketones Test strip Ql (U)Ord ered By: Monica Alvarado on 04-20-2024 Urine ketones detection by test strip 50 mg/dl High Negative [facility] Lactic Acidon 04-20-2024 Lactate [Moles/Vol] 3.0 mmol/L Invalid Interpretation Code 0.0-2.0 [facility] Comment on above: Order Comment: Y Result Comment: Crit ical Result(s) Called to Candace RN (ER): Allison:??Results read back by same. Performed By: #### L 500.4050, L503.6005, L300.3900, L300.4310, M200.1000, L501.3620, L100.0100 ####[facility] [address] [place], [address] Lactic acid measurementOrder ed By: Monica Alvarado on 04-20-2024 Lactic acid measurement 3.0 mmol/L High 0.0-2.0 [facility] Leukocyte esterase Test stri p Ql (U)Ordered By: Monica Alvarado on 04-20-2024 Urine leukocyte esterase detection by dipstick 100 /ul High Negative [facility] Lymphocytes Auto (Unsp spec) [#/Vol]Ordered By: Monica Alvarado on 04-20-2024 Absolute lymphocyte count 1.72 X10^3/uL 0.83-4.51 [facility] Lymphocytes/100 WBC Auto (Un sp spec)Ordered By: Monica Alvarado on 04-20-2024 Automated lymphocyte count as percentage of total leukocytes 6.9 % Low 19-41 [facility] M100.678on 04-20-2024 M100.678 Pending SARS-CoV-2 (COVID 19) Negative INFLUENZA A Negative INFLUENZA B Negative RSV PCR Negative Normal [facility] Comment on above: Performed By: #### M 100.2200, M100.678, L400.0001 ####[facility] [address] [place], [address] M8200.1000on 04-20-2024 M8200.1000 Normal Reference Ran ge = Negative MRSA DNA Nose Ql MARILEE+probe GeneXpert Instrument, PCR method MRSA PCR MRSA NEGATIVE Normal [facility] Comment on above: Performed By: #### M 8200.1000 ####[facility] [address] [place], [address] MCV (RBC) [Entitic vol]Order ed By: Monica Alvarado on 04-20-2024 MCV (mean corpuscular volume) determination 86.6 fL 81-99 [facility] Magnesium (Unsp spec) [Mass/ Vol]Ordered By: Kanwal Aguilar on 04-20-2024 Magnesium measurement (mass/volume) 2.1 mg/dL 1.5-2.2 [facility] Manual differential comment Minesh (Bld) [Interp]Ordered By: Monica Alvarado on 04-20-2024 Blood manual differential comment interpretation (narrative result) SCANNED [facility] Mean corpuscular hemoglobin (MCH) determinationOrdered By: Monica Alvarado on 04-20-2024 Mean corpuscular hemoglobin (MCH) determination 29.0 pg 27.0-32.0 [facility] Mean corpuscular hemoglobin concentration (MCHC) determinationOrdered By: Monica Alvarado on 04-20-2024 Mean corpuscular hemoglobin concentration (MCHC) determination 33.5 g/dL 32-36 [facility] Mean platelet volume determi nationOrdered By: Monica Alvarado on 04-20-2024 Mean platelet volume determination 9.6 fl 6.2-12.0 [facility] Microscopic analysis of urin e for red blood cells (RBC)Ordered By: Monica Alvarado on 04-20-2024 Microscopic analysis of urine for red blood cells (RBC) 0-5 SEEN /hpf 5-10 [facility] Monocyte percentageOrdered B y: Monica Alvarado on 04-20-2024 Monocyte percentage 5.6 % 0-10 [facility] Mucus LM Ql (Urine sed)Order ed By: Monica Alvarado on 04-20-2024 Mucus detection in urine sediment by light microscopy 1+ /hpf [facility] Neutrophil percentageOrdered By: Monica Alvarado on 04-20-2024 Neutrophil percentage 86.6 % High 47-70 [facility] Nitrite Test strip Ql (U)Ord ered By: Monica Alvarado on 04-20-2024 Urine nitrite test by dipstick Negative Negative [facility] No Panel InformationOrdered By: Kanwal Aguilar on 04-20-2024 ART [facility] R Brach [facility] Not entered [facility] Room Air [facility] No Panel InformationOrdered By: Monica Alvarado on 04-20-2024 70 U/L High <32 [facility] Nucleated red blood cell per centageOrdered By: Monica Alvarado on 04-20-2024 Nucleated red blood cell percentage 0 % 0-5 [facility] Oxygen saturation measuremen tOrdered By: Kanwal Aguilar on 04-20-2024 Oxygen saturation measurement 95 % 95-99 [facility] Partial Thromboplast Timeon 04-20-2024 aPTT Coag (Bld) [Time] 25.1 s Normal 24.1-36.2 [facility] Comment on above: Performed By: #### L 500.4050, L503.6005, L300.3900, L300.4310, M200.1000, L501.3620, L100.0100 ####[facility] [address] [place], [place], [id number] Partial pressure of carbon d ioxide measurementOrdered By: Kanwal Aguilar on 04-20-2024 Partial pressure of carbon dioxide measurement 30.5 mmHg Low 35-45 [facility] Partial pressure of oxygen m easurementOrdered By: Kanwal Aguilar on 04-20-2024 Partial pressure of oxygen measurement 70 mmHG Low 75-100 [facility] Pelvis 1 or 2 Viewson 2024 Pelvis 1 or 2 Views Normal [facility] Platelet countOrdered By: Eleni Alvarado on 04-20-2024 Platelet count 359 K/mm3 150-450 [facility] Potassium (Unsp spec) [Mass/ Vol]Ordered By: Monica Alvarado on 04-20-2024 Potassium measurement (mass/volume) 4.0 mmol/L 3.3-5.1 [facility] Protein Test strip Ql (U)Ord ered By: Monica Alvarado on 04-20-2024 Urine protein assay by test strip, semi-quantitative 500 mg/dl High Negative [facility] Prothrombin Time w/INRon INR Coag (PPP) [Relative time] 1.2 {INR} Normal [facility] Comment on above: Performed By: #### L 500.4050, L503.6005, L300.3900, L300.4310, M200.1000, L501.3620, L100.0100 ####[facility] [address] [place], [address] PT Coag (PPP) [Time] 15.1 s High 11.7-14.9 [facility] Comment on above: Performed By: #### L 500.4050, L503.6005, L300.3900, L300.4310, M200.1000, L501.3620, L100.0100 ####[facility] [address] [place], [address] Prothrombin timeOrdered By: Monica Alvarado on 04-20-2024 Prothrombin time 15.1 SECONDS High 11.7-14.9 [facility] RBC Auto (Bld) [#/Vol]Ordere d By: Monica Alvarado on 04-20-2024 Automated blood erythrocyte count 5.89 M/mm3 High 4.2-5.4 [facility] Serum globulin measurementOr dered By: Monica Alvarado on 04-20-2024 Serum globulin measurement 3.6 g/dL 2.2-4.2 [facility] Serum phosphorus measurement Ordered By: Kanwal Aguilar on 04-20-2024 Serum phosphorus measurement 2.2 mg/dL Low 2.7-4.5 [facility] Sodium levelOrdered By: Monica Alvarado on 04-20-2024 Sodium level 144 mmol/L 133-145 [facility] Specific gravity (U) [Rel de nsity]Ordered By: Monica Alvarado on 04-20-2024 Urine specific gravity measurement 1.020 1.002-1.030 [facility] Spine Cervical without Contr ason 04-20-2024 Spine Cervical without Contras Normal [facility] Total carbon dioxide measure mentOrdered By: Kanwal Aguilar on 04-20-2024 Total carbon dioxide measurement 22 mmol/L [facility] Total proteinOrdered By: Kadie Alvarado on 04-20-2024 Total protein 8.1 g/dL 5.9-8.4 [facility] Urea nitrogen [Mass/Vol]Orde red By: Monica Alvarado on 04-20-2024 Serum or plasma urea nitrogen measurement (mass/volume) 47 mg/dL High 4-19 [facility] Urinalysis, Completeon 04-20 BACTERIA 2+ /hpf Normal None Seen [facility] Comment on above: Order Comment: DAYAN CTOR TO SPECIFY Performed By: #### M 100.2200, M100.678, L400.0001 ####[facility] [address] [place], [address] EPI,SQUAMOUS 0-5 SEEN Normal 5-10 [facility] Comment on above: Order Comment: DAYAN CTOR TO SPECIFY Performed By: #### M 100.2200, M100.678, L400.0001 ####[facility] [address] [place], [address] Mucus Ql (Urine sed) 1+ /hpf Normal [facility] Comment on above: Order Comment: COLLE CTOR TO SPECIFY Performed By: #### M 100.2200, M100.678, L400.0001 ####[facility] [address] [place], [address] RBC 0-5 SEEN Normal 0-5 [facility] Comment on above: Order Comment: DAYAN CTOR TO SPECIFY Performed By: #### M 100.2200, M100.678, L400.0001 ####[facility] [address] [place], [address] WBC 10-25 SEEN Normal 0-5 [facility] Comment on above: Order Comment: DAYAN CTOR TO SPECIFY Performed By: #### M 100.2200, M100.678, L400.0001 ####[facility] [address] [place], [address] Urine blood detectionOrdered By: Monica Alvarado on 04-20-2024 Urine blood detection 250 /ul High Negative [facility] Urine cultureOrdered By: Kadie Alvarado on 04-20-2024 Urine culture Enterococcus faecalis Abnormal [facility] Urine culture Staphylococcus simulans Abnormal [facility] Urine culture Staphylococcus aureus Abnormal [facility] Urine glucose detectionOrder ed By: Monica Alvarado on 04-20-2024 Urine glucose detection Normal mg/dl Normal [facility] White blood cell (WBC) count Ordered By: Monica Alvarado on 04-20-2024 White blood cell (WBC) count 25.0 K/mm3 High 4.4-11.0 [facility] White blood cell countOrdere d By: Monica Alvarado on 04-20-2024 White blood cell count 10-25 SEEN /hpf 0-5 [facility] aPTT Coag (PPP) [Time]Ordere d By: Monica Alvarado on 04-20-2024 Activated partial thromboplastin time (aPTT) in platelet poor plasma by coagulation a 25.1 Seconds 24.1-36.2 [facility] pH (U)Ordered By: Monica garsia on 04-20-2024 Urine pH 5.0 5.0 - 8.0 [facility] pH (Unsp spec)Ordered By: Ananya archie Lauren on 04-20-2024 Measurement, pH 7.44 7.35-7.45 [facility] Basic Metabolic Profile (BMP )on 02-22-2024 BUN Normal 7-18 [facility] Comment on above: Result Comment: Canc elled via OM: Order cancelled - Patient discharged Performed By: #### L 100.0100, L500.2500 ####[facility] [address] [place], [address] BUN/CRE Normal 10-20 [facility] Comment on above: Result Comment: Canc elled via OM: Order cancelled - Patient discharged Performed By: #### L 100.0100, L500.2500 ####[facility] [address] [place], [address] CA,Total Normal 8.5-10.1 [facility] Comment on above: Result Comment: Canc elled via OM: Order cancelled - Patient discharged Performed By: #### L 100.0100, L500.2500 ####[facility] [address] [place], [address] CL Normal 98-107 [facility] Comment on above: Result Comment: Canc elled via OM: Order cancelled - Patient discharged Performed By: #### L 100.0100, L500.2500 ####[facility] [address] [place], [address] CO2 Normal 21.0-32.0 [facility] Comment on above: Result Comment: Canc elled via OM: Order cancelled - Patient discharged Performed By: #### L 100.0100, L500.2500 ####[facility] [address] [place], [address] CREAT,SERUM Normal 0.55-1.02 [facility] Comment on above: Result Comment: Canc elled via OM: Order cancelled - Patient discharged Performed By: #### L 100.0100, L500.2500 ####[facility] [address] [place], [address] EST GFR Normal >60 [facility] Comment on above: Result Comment: Canc elled via OM: Order cancelled - Patient discharged Performed By: #### L 100.0100, L500.2500 ####[facility] [address] [place], [address] EST GFR - AA Normal >60 [facility] Comment on above: Result Comment: Canc elled via OM: Order cancelled - Patient discharged Performed By: #### L 100.0100, L500.2500 ####[facility] [address] [place], [address] GAP Normal 5-15 [facility] Comment on above: Result Comment: Canc elled via OM: Order cancelled - Patient discharged Performed By: #### L 100.0100, L500.2500 ####[facility] [address] [place], [address] GLU Normal 74-106 [facility] Comment on above: Result Comment: Canc elled via OM: Order cancelled - Patient discharged Performed By: #### L 100.0100, L500.2500 ####[facility] [address] [place], [address] Potassium Normal 3.5-5.1 [facility] Comment on above: Result Comment: Canc elled via OM: Order cancelled - Patient discharged Performed By: #### L 100.0100, L500.2500 ####[facility] [address] [place], [address] Basic Metabolic Profile (BMP) Normal 136-145 [facility] Comment on above: Result Comment: Canc elled via OM: Order cancelled - Patient discharged Performed By: #### L 100.0100, L500.2500 ####[facility] [address] [place], [address] CBC W/Diff, Automatedon 01-1 0-2024 Absolute Neut Normal 2.0-7.7 [facility] Comment on above: Result Comment: Canc elled via OM: Order cancelled - Patient discharged Performed By: #### L 100.0100, L500.2500 ####[facility] [address] [place], [address] HCT Normal 37-47 [facility] Comment on above: Result Comment: Canc elled via OM: Order cancelled - Patient discharged Performed By: #### L 100.0100, L500.2500 ####[facility] [address] [place], [address] HGB Normal 12.0-15.0 [facility] Comment on above: Result Comment: Canc elled via OM: Order cancelled - Patient discharged Performed By: #### L 100.0100, L500.2500 ####[facility] [address] [place], [address] MCH Normal 27.0-32.0 [facility] Comment on above: Result Comment: Canc elled via OM: Order cancelled - Patient discharged Performed By: #### L 100.0100, L500.2500 ####[facility] [address] [place], [address] MCHC Normal 32-36 [facility] Comment on above: Result Comment: Canc elled via OM: Order cancelled - Patient discharged Performed By: #### L 100.0100, L500.2500 ####[facility] [address] [place], [address] MCV Normal 81-99 [facility] Comment on above: Result Comment: Canc elled via OM: Order cancelled - Patient discharged Performed By: #### L 100.0100, L500.2500 ####[facility] [address] [place], [address] NEUT% Normal 47-70 [facility] Comment on above: Result Comment: Canc elled via OM: Order cancelled - Patient discharged Performed By: #### L 100.0100, L500.2500 ####[facility] [address] [place], [address] PLT Normal 150-450 [facility] Comment on above: Result Comment: Canc elled via OM: Order cancelled - Patient discharged Performed By: #### L 100.0100, L500.2500 ####[facility] [address] [place], [address] RBC Normal 4.2-5.4 [facility] Comment on above: Result Comment: Canc elled via OM: Order cancelled - Patient discharged Performed By: #### L 100.0100, L500.2500 ####[facility] [address] [place], [address] RDW CV Normal 11.6-14.6 [facility] Comment on above: Result Comment: Canc elled via OM: Order cancelled - Patient discharged Performed By: #### L 100.0100, L500.2500 ####[facility] [address] [place], [address] RDW SD Normal 35.1-43.9 [facility] Comment on above: Result Comment: Canc elled via OM: Order cancelled - Patient discharged Performed By: #### L 100.0100, L500.2500 ####[facility] [address] [place], [address] WBC Normal 4.4-11.0 [facility] Comment on above: Result Comment: Canc elled via OM: Order cancelled - Patient discharged Performed By: #### L 100.0100, L500.2500 ####[facility] [address] [place], [address] Basic Metabolic Profile (BMP )on 02-21-2024 BUN Normal 7-18 [facility] Comment on above: Result Comment: Canc elled via OM: Order cancelled - Patient discharged Performed By: #### L 100.0100, L500.2500 ####[facility] [address] [place], [address] BUN/CRE Normal 10-20 [facility] Comment on above: Result Comment: Canc elled via OM: Order cancelled - Patient discharged Performed By: #### L 100.0100, L500.2500 ####[facility] [address] [place], [address] CA,Total Normal 8.5-10.1 [facility] Comment on above: Result Comment: Canc elled via OM: Order cancelled - Patient discharged Performed By: #### L 100.0100, L500.2500 ####[facility] [address] [place], [address] CL Normal 98-107 [facility] [facility] Comment on above: Result Comment: Canc elled via OM: Order cancelled - Patient discharged Performed By: #### L 100.0100, L500.2500 ####[facility] [address] [place], [address] CO2 Normal 21.0-32.0 [facility] Comment on above: Result Comment: Canc elled via OM: Order cancelled - Patient discharged Performed By: #### L 100.0100, L500.2500 ####[facility] [address] [place], [address] CREAT,SERUM Normal 0.55-1.02 [facility] Comment on above: Result Comment: Canc elled via OM: Order cancelled - Patient discharged Performed By: #### L 100.0100, L500.2500 ####[facility] [address] [place], [address] EST GFR Normal >60 [facility] Comment on above: Result Comment: Canc elled via OM: Order cancelled - Patient discharged Performed By: #### L 100.0100, L500.2500 ####[facility] [address] [place], [address] EST GFR - AA Normal >60 [facility] Comment on above: Result Comment: Canc elled via OM: Order cancelled - Patient discharged Performed By: #### L 100.0100, L500.2500 ####[facility] [address] [place], [address] GAP Normal 5-15 [facility] Comment on above: Result Comment: Canc elled via OM: Order cancelled - Patient discharged Performed By: #### L 100.0100, L500.2500 ####[facility] [address] [place], [address] GLU Normal 74-106 [facility] Comment on above: Result Comment: Canc elled via OM: Order cancelled - Patient discharged Performed By: #### L 100.0100, L500.2500 ####[facility] [address] [place], [address] Potassium Normal 3.5-5.1 [facility] Comment on above: Result Comment: Canc elled via OM: Order cancelled - Patient discharged Performed By: #### L 100.0100, L500.2500 ####[facility] [address] [place], [address] Basic Metabolic Profile (BMP) Normal 136-145 [facility] Comment on above: Result Comment: Canc elled via OM: Order cancelled - Patient discharged Performed By: #### L 100.0100, L500.2500 ####[facility] [address] [place], [address] CBC W/Diff, Automatedon 01-0 -2024 Absolute Neut Normal 2.0-7.7 [facility] Comment on above: Result Comment: Canc elled via OM: Order cancelled - Patient discharged Performed By: #### L 100.0100, L500.2500 ####[facility] [address] [place], [address] HCT Normal 37-47 [facility] Comment on above: Result Comment: Canc elled via OM: Order cancelled - Patient discharged Performed By: #### L 100.0100, L500.2500 ####[facility] [address] [place], [address] HGB Normal 12.0-15.0 [facility] Comment on above: Result Comment: Canc elled via OM: Order cancelled - Patient discharged Performed By: #### L 100.0100, L500.2500 ####[facility] [address] [place], [address] MCH Normal 27.0-32.0 [facility] Comment on above: Result Comment: Canc elled via OM: Order cancelled - Patient discharged Performed By: #### L 100.0100, L500.2500 ####[facility] [address] [place], [address] MCHC Normal 32-36 [facility] Comment on above: Result Comment: Canc elled via OM: Order cancelled - Patient discharged Performed By: #### L 100.0100, L500.2500 ####[facility] [address] [place], [address] MCV Normal 81-99 [facility] Comment on above: Result Comment: Canc elled via OM: Order cancelled - Patient discharged Performed By: #### L 100.0100, L500.2500 ####[facility] [address] [place], [address] NEUT% Normal 47-70 [facility] Comment on above: Result Comment: Canc elled via OM: Order cancelled - Patient discharged Performed By: #### L 100.0100, L500.2500 ####[facility] [address] [place], [address] PLT Normal 150-450 [facility] Comment on above: Result Comment: Canc elled via OM: Order cancelled - Patient discharged Performed By: #### L 100.0100, L500.2500 ####[facility] [address] [place], [address] RBC Normal 4.2-5.4 [facility] Comment on above: Result Comment: Canc elled via OM: Order cancelled - Patient discharged Performed By: #### L 100.0100, L500.2500 ####[facility] [address] [place], [address] RDW CV Normal 11.6-14.6 [facility] Comment on above: Result Comment: Canc elled via OM: Order cancelled - Patient discharged Performed By: #### L 100.0100, L500.2500 ####[facility] [address] [place], [address] RDW SD Normal 35.1-43.9 [facility] Comment on above: Result Comment: Canc elled via OM: Order cancelled - Patient discharged Performed By: #### L 100.0100, L500.2500 ####[facility] [address] [place], [address] WBC Normal 4.4-11.0 [facility] Comment on above: Result Comment: Canc elled via OM: Order cancelled - Patient discharged Performed By: #### L 100.0100, L500.2500 ####[facility] [address] [place], [address] Basic Metabolic Profile (BMP )on 02-20-2024 BUN Normal 7-18 [facility] Comment on above: Result Comment: Canc elled via OM: Order cancelled - Patient discharged Performed By: #### L 500.2500, L100.0100 ####[facility] [address] [place], [address] BUN/CRE Normal 10-20 [facility] Comment on above: Result Comment: Canc elled via OM: Order cancelled - Patient discharged Performed By: #### L 500.2500, L100.0100 ####[facility] [address] [place], [address] CA,Total Normal 8.5-10.1 [facility] Comment on above: Result Comment: Canc elled via OM: Order cancelled - Patient discharged Performed By: #### L 500.2500, L100.0100 ####[facility] [address] [place], [address] CL Normal 98-107 [facility] Comment on above: Result Comment: Canc elled via OM: Order cancelled - Patient discharged Performed By: #### L 500.2500, L100.0100 ####[facility] [address] [place], [address] CO2 Normal 21.0-32.0 [facility] Comment on above: Result Comment: Canc elled via OM: Order cancelled - Patient discharged Performed By: #### L 500.2500, L100.0100 ####[facility] [address] [place], [address] CREAT,SERUM Normal 0.55-1.02 [facility] Comment on above: Result Comment: Canc elled via OM: Order cancelled - Patient discharged Performed By: #### L 500.2500, L100.0100 ####[facility] [address] [place], [address] EST GFR Normal >60 [facility] Comment on above: Result Comment: Canc elled via OM: Order cancelled - Patient discharged Performed By: #### L 500.2500, L100.0100 ####[facility] [address] [place], [address] EST GFR - AA Normal >60 [facility] Comment on above: Result Comment: Canc elled via OM: Order cancelled - Patient discharged Performed By: #### L 500.2500, L100.0100 ####[facility] [address] [place], [address] GAP Normal 5-15 [facility] Comment on above: Result Comment: Canc elled via OM: Order cancelled - Patient discharged Performed By: #### L 500.2500, L100.0100 ####[facility] [address] [place], [address] GLU Normal 74-106 [facility] Comment on above: Result Comment: Canc elled via OM: Order cancelled - Patient discharged Performed By: #### L 500.2500, L100.0100 ####[facility] [address] [place], [address] Potassium Normal 3.5-5.1 [facility] Comment on above: Result Comment: Canc elled via OM: Order cancelled - Patient discharged Performed By: #### L 500.2500, L100.0100 ####[facility] [address] [place], [address] Basic Metabolic Profile (BMP) Normal 136-145 [facility] Comment on above: Result Comment: Canc elled via OM: Order cancelled - Patient discharged Performed By: #### L 500.2500, L100.0100 ####[facility] [address] [place], [address] CBC W/Diff, Automatedon 01-0 -2024 Absolute Neut Normal 2.0-7.7 [facility] Comment on above: Result Comment: Canc elled via OM: Order cancelled - Patient discharged Performed By: #### L 500.2500, L100.0100 ####[facility] [address] [place], [address] HCT Normal 37-47 [facility] Comment on above: Result Comment: Canc elled via OM: Order cancelled - Patient discharged Performed By: #### L 500.2500, L100.0100 ####[facility] [address] [place], [address] HGB Normal 12.0-15.0 [facility] Comment on above: Result Comment: Canc elled via OM: Order cancelled - Patient discharged Performed By: #### L 500.2500, L100.0100 ####[facility] [address] [place], [address] MCH Normal 27.0-32.0 [facility] Comment on above: Result Comment: Canc elled via OM: Order cancelled - Patient discharged Performed By: #### L 500.2500, L100.0100 ####[facility] [address] [place], [address] MCHC Normal 32-36 [facility] Comment on above: Result Comment: Canc elled via OM: Order cancelled - Patient discharged Performed By: #### L 500.2500, L100.0100 ####[facility] [address] [place], [address] MCV Normal 81-99 [facility] Comment on above: Result Comment: Canc elled via OM: Order cancelled - Patient discharged Performed By: #### L 500.2500, L100.0100 ####[facility] [address] [place], [address] NEUT% Normal 47-70 [facility] Comment on above: Result Comment: Canc elled via OM: Order cancelled - Patient discharged Performed By: #### L 500.2500, L100.0100 ####[facility] [address] [place], [address] PLT Normal 150-450 [facility] Comment on above: Result Comment: Canc elled via OM: Order cancelled - Patient discharged Performed By: #### L 500.2500, L100.0100 ####[facility] [address] [place], [address] RBC Normal 4.2-5.4 [facility] Comment on above: Result Comment: Canc elled via OM: Order cancelled - Patient discharged Performed By: #### L 500.2500, L100.0100 ####[facility] [address] [place], [address] RDW CV Normal 11.6-14.6 [facility] Comment on above: Result Comment: Canc elled via OM: Order cancelled - Patient discharged Performed By: #### L 500.2500, L100.0100 ####[facility] [address] [place], [address] RDW SD Normal 35.1-43.9 [facility] Comment on above: Result Comment: Canc elled via OM: Order cancelled - Patient discharged Performed By: #### L 500.2500, L100.0100 ####[facility] [address] [place], [address] WBC Normal 4.4-11.0 [facility] Comment on above: Result Comment: Canc elled via OM: Order cancelled - Patient discharged Performed By: #### L 500.2500, L100.0100 ####[facility] [address] [place], [address] Basic Metabolic Profile (BMP )on 02-19-2024 BUN Normal 7-18 [facility] Comment on above: Result Comment: Canc elled via OM: Order cancelled - Patient discharged Performed By: #### L 100.0100, L500.2500 ####[facility] [address] [place], [address] BUN/CRE Normal 10-20 [facility] Comment on above: Result Comment: Canc elled via OM: Order cancelled - Patient discharged Performed By: #### L 100.0100, L500.2500 ####[facility] [address] [place], [address] CA,Total Normal 8.5-10.1 [facility] Comment on above: Result Comment: Canc elled via OM: Order cancelled - Patient discharged Performed By: #### L 100.0100, L500.2500 ####[facility] [address] [place], [address] CL Normal 98-107 [facility] Comment on above: Result Comment: Canc elled via OM: Order cancelled - Patient discharged Performed By: #### L 100.0100, L500.2500 ####[facility] [address] [place], [address] CO2 Normal 21.0-32.0 [facility] Comment on above: Result Comment: Canc elled via OM: Order cancelled - Patient discharged Performed By: #### L 100.0100, L500.2500 ####[facility] [address] [place], [address] CREAT,SERUM Normal 0.55-1.02 [facility] Comment on above: Result Comment: Canc elled via OM: Order cancelled - Patient discharged Performed By: #### L 100.0100, L500.2500 ####[facility] [address] [place], [address] EST GFR Normal >60 [facility] Comment on above: Result Comment: Canc elled via OM: Order cancelled - Patient discharged Performed By: #### L 100.0100, L500.2500 ####[facility] [address] [place], [address] EST GFR - AA Normal >60 [facility] Comment on above: Result Comment: Canc elled via OM: Order cancelled - Patient discharged Performed By: #### L 100.0100, L500.2500 ####[facility] [address] [place], [address] GAP Normal 5-15 [facility] Comment on above: Result Comment: Canc elled via OM: Order cancelled - Patient discharged Performed By: #### L 100.0100, L500.2500 ####[facility] [address] [place], [address] GLU Normal 74-106 [facility] Comment on above: Result Comment: Canc elled via OM: Order cancelled - Patient discharged Performed By: #### L 100.0100, L500.2500 ####[facility] [address] [place], [address] Potassium Normal 3.5-5.1 [facility] Comment on above: Result Comment: Canc elled via OM: Order cancelled - Patient discharged Performed By: #### L 100.0100, L500.2500 ####[facility] [address] [place], [address] Basic Metabolic Profile (BMP) Normal 136-145 [facility] Comment on above: Result Comment: Canc elled via OM: Order cancelled - Patient discharged Performed By: #### L 100.0100, L500.2500 ####[facility] [address] [place], [address] CBC W/Diff, Automatedon 01-0 7-2024 Absolute Neut Normal 2.0-7.7 [facility] Comment on above: Result Comment: Canc elled via OM: Order cancelled - Patient discharged Performed By: #### L 100.0100, L500.2500 ####[facility] [address] [place], [address] HCT Normal 37-47 [facility] Comment on above: Result Comment: Canc elled via OM: Order cancelled - Patient discharged Performed By: #### L 100.0100, L500.2500 ####[facility] [address] [place], [address] HGB Normal 12.0-15.0 [facility] Comment on above: Result Comment: Canc elled via OM: Order cancelled - Patient discharged Performed By: #### L 100.0100, L500.2500 ####[facility] [address] [place], [address] MCH Normal 27.0-32.0 [facility] Comment on above: Result Comment: Canc elled via OM: Order cancelled - Patient discharged Performed By: #### L 100.0100, L500.2500 ####[facility] [address] [place], [address] MCHC Normal 32-36 [facility] Comment on above: Result Comment: Canc elled via OM: Order cancelled - Patient discharged Performed By: #### L 100.0100, L500.2500 ####[facility] [address] [place], [address] MCV Normal 81-99 [facility] Comment on above: Result Comment: Canc elled via OM: Order cancelled - Patient discharged Performed By: #### L 100.0100, L500.2500 ####[facility] [address] [place], [address] NEUT% Normal 47-70 [facility] Comment on above: Result Comment: Canc elled via OM: Order cancelled - Patient discharged Performed By: #### L 100.0100, L500.2500 ####[facility] [address] [place], [address] PLT Normal 150-450 [facility] Comment on above: Result Comment: Canc elled via OM: Order cancelled - Patient discharged Performed By: #### L 100.0100, L500.2500 ####[facility] [address] [place], [address] RBC Normal 4.2-5.4 [facility] Comment on above: Result Comment: Canc elled via OM: Order cancelled - Patient discharged Performed By: #### L 100.0100, L500.2500 ####[facility] [address] [place], [address] RDW CV Normal 11.6-14.6 [facility] Comment on above: Result Comment: Canc elled via OM: Order cancelled - Patient discharged Performed By: #### L 100.0100, L500.2500 ####[facility] [address] [place], [address] RDW SD Normal 35.1-43.9 [facility] Comment on above: Result Comment: Canc elled via OM: Order cancelled - Patient discharged Performed By: #### L 100.0100, L500.2500 ####[facility] [address] [place], [address] WBC Normal 4.4-11.0 [facility] Comment on above: Result Comment: Canc elled via OM: Order cancelled - Patient discharged Performed By: #### L 100.0100, L500.2500 ####[facility] [address] [place], [address] Culture, Blood (WB)on 2024 CUB Blood cultures x2, f rom two different sites No growth in 5 days. Normal [facility] Comment on above: Performed By: #### M 200.1000, L500.4050, L100.0100, L300.4310, L300.3900, L503.6005, L501.4020 ####[facility] [address] [place], [address] Basic Metabolic Profile (BMP )on 02-18-2024 BUN Normal 7-18 [facility] Comment on above: Result Comment: Canc elled via OM: Order cancelled - Patient discharged Performed By: #### L 100.0100, L500.2500 ####[facility] [address] [place], [address] BUN/CRE Normal 10-20 [facility] Comment on above: Result Comment: Canc elled via OM: Order cancelled - Patient discharged Performed By: #### L 100.0100, L500.2500 ####[facility] [address] [place], [address] CA,Total Normal 8.5-10.1 [facility] Comment on above: Result Comment: Canc elled via OM: Order cancelled - Patient discharged Performed By: #### L 100.0100, L500.2500 ####[facility] [address] [place], [address] CL Normal 98-107 [facility] Comment on above: Result Comment: Canc elled via OM: Order cancelled - Patient discharged Performed By: #### L 100.0100, L500.2500 ####[facility] [address] [place], [address] CO2 Normal 21.0-32.0 [facility] Comment on above: Result Comment: Canc elled via OM: Order cancelled - Patient discharged Performed By: #### L 100.0100, L500.2500 ####[facility] [address] [place], [address] CREAT,SERUM Normal 0.55-1.02 [facility] Comment on above: Result Comment: Canc elled via OM: Order cancelled - Patient discharged Performed By: #### L 100.0100, L500.2500 ####[facility] [address] [place], [address] EST GFR Normal >60 [facility] Comment on above: Result Comment: Canc elled via OM: Order cancelled - Patient discharged Performed By: #### L 100.0100, L500.2500 ####[facility] [address] [place], [address] EST GFR - AA Normal >60 [facility] Comment on above: Result Comment: Canc elled via OM: Order cancelled - Patient discharged Performed By: #### L 100.0100, L500.2500 ####[facility] [address] [place], [address] GAP Normal 5-15 [facility] Comment on above: Result Comment: Canc elled via OM: Order cancelled - Patient discharged Performed By: #### L 100.0100, L500.2500 ####[facility] [address] [place], [address] GLU Normal 74-106 [facility] Comment on above: Result Comment: Canc elled via OM: Order cancelled - Patient discharged Performed By: #### L 100.0100, L500.2500 ####[facility] [address] [place], [address] Potassium Normal 3.5-5.1 [facility] Comment on above: Result Comment: Canc elled via OM: Order cancelled - Patient discharged Performed By: #### L 100.0100, L500.2500 ####[facility] [address] [place], [address] Basic Metabolic Profile (BMP) Normal 136-145 [facility] Comment on above: Result Comment: Canc elled via OM: Order cancelled - Patient discharged Performed By: #### L 100.0100, L500.2500 ####[facility] [address] [place], [address] CBC W/Diff, Automatedon 01-0 -2024 Absolute Neut Normal 2.0-7.7 [facility] Comment on above: Result Comment: Canc elled via OM: Order cancelled - Patient discharged Performed By: #### L 100.0100, L500.2500 ####[facility] [address] [place], [address] HCT Normal 37-47 [facility] Comment on above: Result Comment: Canc elled via OM: Order cancelled - Patient discharged Performed By: #### L 100.0100, L500.2500 ####[facility] [address] [place], [address] HGB Normal 12.0-15.0 [facility] Comment on above: Result Comment: Canc elled via OM: Order cancelled - Patient discharged Performed By: #### L 100.0100, L500.2500 ####[facility] [address] [place], [address] MCH Normal 27.0-32.0 [facility] Comment on above: Result Comment: Canc elled via OM: Order cancelled - Patient discharged Performed By: #### L 100.0100, L500.2500 ####[facility] [address] [place], [address] MCHC Normal 32-36 [facility] Comment on above: Result Comment: Canc elled via OM: Order cancelled - Patient discharged Performed By: #### L 100.0100, L500.2500 ####[facility] [address] [place], [address] MCV Normal 81-99 [facility] Comment on above: Result Comment: Canc elled via OM: Order cancelled - Patient discharged Performed By: #### L 100.0100, L500.2500 ####[facility] [address] [place], [address] NEUT% Normal 47-70 [facility] Comment on above: Result Comment: Canc elled via OM: Order cancelled - Patient discharged Performed By: #### L 100.0100, L500.2500 ####[facility] [address] [place], [address] PLT Normal 150-450 [facility] Comment on above: Result Comment: Canc elled via OM: Order cancelled - Patient discharged Performed By: #### L 100.0100, L500.2500 ####[facility] [address] [place], [address] RBC Normal 4.2-5.4 [facility] Comment on above: Result Comment: Canc elled via OM: Order cancelled - Patient discharged Performed By: #### L 100.0100, L500.2500 ####[facility] [address] [place], [address] RDW CV Normal 11.6-14.6 [facility] Comment on above: Result Comment: Canc elled via OM: Order cancelled - Patient discharged Performed By: #### L 100.0100, L500.2500 ####[facility] [address] [place], [address] RDW SD Normal 35.1-43.9 [facility] Comment on above: Result Comment: Canc elled via OM: Order cancelled - Patient discharged Performed By: #### L 100.0100, L500.2500 ####[facility] [address] [place], [address] WBC Normal 4.4-11.0 [facility] Comment on above: Result Comment: Canc elled via OM: Order cancelled - Patient discharged Performed By: #### L 100.0100, L500.2500 ####[facility] [address] [place], [address] Absolute neutrophil countOrd ered By: Jordana Hopkins on 02-17-2024 Absolute neutrophil count 6.4 X10^3/uL 2.0-7.7 [facility] Basic Metabolic Profile (BMP )on 02-17-2024 BUN/CRE 22.4 RATIO High 10-20 [facility] Comment on above: Performed By: #### L 500.2500, L100.0100 ####[facility] [address] [place], [address] CA,Total 9.2 mg/dL Normal 8.5-10.1 [facility] Comment on above: Performed By: #### L 500.2500, L100.0100 ####[facility] [address] [place], [address] Chloride [Moles/Vol] 110 mmol/L High 98-107 [facility] Comment on above: Performed By: #### L 500.2500, L100.0100 ####[facility] [address] [place], [address] CO2 [Moles/Vol] 26.0 mmol/L Normal 21.0-32.0 [facility] Comment on above: Performed By: #### L 500.2500, L100.0100 ####[facility] [address] [place], [address] Creatinine [Mass/Vol] 0.76 mg/dL Normal 0.55-1.02 [facility] Comment on above: Result Comment: The validity of the calculated GFR GFRAA in patients over70 years has not been determined. Clinical correlation isessential. Performed By: #### L 500.2500, L100.0100 ####[facility] [address] [place], [address] ECRCL 58.88 ml/min Normal [facility] Comment on above: Performed By: #### L 500.2500, L100.0100 ####[facility] [address] [place], [address] EST GFR - AA 97 mL/min Normal >60 [facility] Comment on above: Result Comment: Afri can Macanese GFR Calc Performed By: #### L 500.2500, L100.0100 ####[facility] [address] [place], [address] GAP 6 Normal 5-15 [facility] Comment on above: Performed By: #### L 500.2500, L100.0100 ####[facility] [address] [place], [address] GFR/1.73 sq M.predicted among non-blacks MDRD (S/P/Bld) [Vol rate/Area] 80 mL/min/{1.73_m2} Normal >60 [facility] Comment on above: Result Comment: Non- GFR Calc Performed By: #### L 500.2500, L100.0100 ####[facility] [address] [place], [address] Glucose [Mass/Vol] 139 mg/dL High 74-106 [facility] Comment on above: Result Comment: Fast ing Glucose result greater than or equal to 126 mg/dLsuggests DIABETES MELLITUS per A.D.A. criteria. Performed By: #### L 500.2500, L100.0100 ####[facility] [address] [place], [address] Potassium [Moles/Vol] 3.3 mmol/L Low 3.5-5.1 [facility] Comment on above: Performed By: #### L 500.2500, L100.0100 ####[facility] [address] [place], [address] Sodium [Moles/Vol] 142 mmol/L Normal 136-145 [facility] Comment on above: Performed By: #### L 500.2500, L100.0100 ####[facility] [address] [place], [address] Urea nitrogen [Mass/Vol] 17 mg/dL Normal 7-18 [facility] Comment on above: Performed By: #### L 500.2500, L100.0100 ####[facility] [address] [place], [address] Basophil percentageOrdered B y: Jordana Hopkins on 02-17-2024 Basophil percentage 0.2 % 0-1 [facility] Bedside Glucoseon 02-17-2024 FINGERSTICK GLU 134 mg/dL High 74-106 [facility] Comment on above: Result Comment: GERALDO GEMENT OF PATIENT CARE PER NURSING PROTOCOL Performed By: #### L 501.080 ####[facility] [address] [place], [address] FINGERSTICK GLU 129 mg/dL High 74-106 [facility] Comment on above: Result Comment: GERALDO GEMENT OF PATIENT CARE PER NURSING PROTOCOL Performed By: #### L 501.080 ####[facility] [address] [place], [address] FINGERSTICK GLU 191 mg/dL High 74-106 [facility] Comment on above: Result Comment: GERALDO GEMENT OF PATIENT CARE PER NURSING PROTOCOL Performed By: #### L 501.080 ####[facility] [address] [place], [address] FINGERSTICK GLU 139 mg/dL High 74-106 [facility] Comment on above: Result Comment: GERALDO GEMENT OF PATIENT CARE PER NURSING PROTOCOL Performed By: #### L 501.080 ####[facility] [address] [place], [address] Blood urea nitrogen (BUN)/cr eatinine ratioOrdered By: Jordana Hopkins on 02-17-2024 Blood urea nitrogen (BUN)/creatinine ratio 22.4 RATIO High 10-20 [facility] CBC W/Diff, Automatedon Absolute Lymph 3.32 X10 3/uL Normal 0.83-4.51 [facility] Comment on above: Performed By: #### L 500.2500, L100.0100 ####[facility] [address] [place], [address] Absolute Neut 6.4 X10 3/uL Normal 2.0-7.7 [facility] Comment on above: Performed By: #### L 500.2500, L100.0100 ####[facility] [address] [place], [address] Basophils/100 WBC (Bld) 0.2 % Normal 0-1 [facility] Comment on above: Performed By: #### L 500.2500, L100.0100 ####[facility] [address] [place], [address] Eosinophils/100 WBC (Bld) 2.2 % Normal 0-5 [facility] Comment on above: Performed By: #### L 500.2500, L100.0100 ####[facility] [address] [place], [address] Erythrocyte distribution width (RBC) [Ratio] 13.2 % Normal 11.6-14.6 [facility] Comment on above: Performed By: #### L 500.2500, L100.0100 ####[facility] [address] [place], [address] Hematocrit (Bld) [Volume fraction] 33.0 % Low 37-47 [facility] Comment on above: Performed By: #### L 500.2500, L100.0100 ####[facility] [address] [place], [address] Hemoglobin (Bld) [Mass/Vol] 10.3 g/dL Low 12.0-15.0 [facility] Comment on above: Performed By: #### L 500.2500, L100.0100 ####[facility] [address] [place], [address] IG% 0.200 Normal 0.0-0.9 [facility] Comment on above: Result Comment: IG% - Immature Granulocytes (promyelocytes, myelocytes andmetamyelocytes) > 1% indicates that a LEFT SHIFT is Present. Performed By: #### L 500.2500, L100.0100 ####[facility] [address] [place], [address] Lymphocytes/100 WBC (Bld) 31.1 % Normal 19-41 [facility] Comment on above: Performed By: #### L 500.2500, L100.0100 ####[facility] [address] [place], [address] MCH (RBC) [Entitic mass] 28.7 pg Normal 27.0-32.0 [facility] Comment on above: Performed By: #### L 500.2500, L100.0100 ####[facility] [address] [place], [address] MCHC (RBC) [Mass/Vol] 31.2 g/dL Low 32-36 [facility] Comment on above: Performed By: #### L 500.2500, L100.0100 ####[facility] [address] [place], [address] MCV (RBC) [Entitic vol] 91.9 fL Normal 81-99 [facility] Comment on above: Performed By: #### L 500.2500, L100.0100 ####[facility] [address] [place], [address] Monocytes/100 WBC (Bld) 6.4 % Normal 0-10 [facility] Comment on above: Performed By: #### L 500.2500, L100.0100 ####[facility] [address] [place], [address] Neutrophils/100 WBC (Bld) 59.9 % Normal 47-70 [facility] Comment on above: Performed By: #### L 500.2500, L100.0100 ####[facility] [address] [place], [address] Nucleated RBC (Bld) [#/Vol] 0 10*3/uL Normal 0-5 [facility] Comment on above: Performed By: #### L 500.2500, L100.0100 ####[facility] [address] [place], [address] Platelet mean volume (Bld) [Entitic vol] 9.6 fL Normal 6.2-12.0 [facility] Comment on above: Performed By: #### L 500.2500, L100.0100 ####[facility] [address] [place], [address] Platelets (Bld) [#/Vol] 226 10*3/uL Normal 150-450 [facility] Comment on above: Performed By: #### L 500.2500, L100.0100 ####[facility] [address] [place], [address] RBC (Bld) [#/Vol] 3.59 10*6/uL Low 4.2-5.4 [facility] Comment on above: Performed By: #### L 500.2500, L100.0100 ####[facility] [address] [place], [address] RDW SD 44.3 fl High 35.1-43.9 [facility] Comment on above: Performed By: #### L 500.2500, L100.0100 ####[facility] [address] [place], [address] WBC (Bld) [#/Vol] 10.7 10*3/uL Normal 4.4-11.0 [facility] Comment on above: Performed By: #### L 500.2500, L100.0100 ####[facility] [address] [place], [address] Calcium [Mass/Vol]Ordered By : Jordana Hopkins on 02-17-2024 Serum or plasma calcium measurement (mass/volume) 9.2 mg/dL 8.5-10.1 [facility] Carbon dioxide measurementOr dered By: Jordana Hopkins on 02-17-2024 Carbon dioxide measurement 26.0 mmol/L 21.0-32.0 [facility] Chloride measurementOrdered By: Jordana Hopkins on 02-17-2024 Chloride measurement 110 mmol/L High 98-107 [facility] Creatinine [Mass/Vol]Ordered By: Jordana Hopkins on 02-17-2024 Serum or plasma creatinine measurement (mass/volume) 0.76 mg/dL 0.55-1.02 [facility] Discharge Instructionon - Discharge Instruction Normal [facility] Eosinophil percentageOrdered By: Jordana Hopkins on 02-17-2024 Eosinophil percentage 2.2 % 0-5 [facility] Erythrocyte distribution wid th (RBC) [Ratio]Ordered By: Jordana Hopkins on 02-17-2024 Erythrocyte distribution width ratio 13.2 % 11.6-14.6 [facility] Erythrocyte distribution wid th standard deviationOrdered By: Jordana Hopkins on 02-17-2024 Erythrocyte distribution width standard deviation 44.3 fl High 35.1-43.9 [facility] Estimated glomerular filtrat ion rate (GFR) AmericanOrdered By: Jordana Hopkins on 02-17-2024 Estimated glomerular filtration rate (GFR) 97 mL/min >60 [facility] Estimation of creatinine maribel aranceOrdered By: Jordana Hopkins on 02-17-2024 Estimation of creatinine clearance 58.88 ml/min [facility] Glomerular filtration rate ( GFR) estimationOrdered By: Jordana Hopkins on 02-17-2024 Glomerular filtration rate (GFR) estimation 80 mL/min >60 [facility] Glucose measurementOrdered B y: Jordana Hopkins on 02-17-2024 Glucose measurement 139 mg/dL High 74-106 [facility] Glucose measurement at bedsi deOrdered By: Jordana Hopkins on 02-17-2024 Glucose measurement at bedside 134 mg/dL High 74-106 [facility] Hematocrit Auto (Bld) [Volum e fraction]Ordered By: Jordana Hopkins on 02-17-2024 Automated blood hematocrit (percentage) 33.0 % Low 37-47 [facility] Hemoglobin measurementOrdere d By: Jordana Hopkins on 02-17-2024 Hemoglobin measurement 10.3 g/dL Low 12.0-15.0 [facility] Immature granulocytes/100 WB C Auto (Bld)Ordered By: Jordana Hopkins on 02-17-2024 Automated immature granulocyte percentage 0.200 % 0.0-0.9 [facility] Lymphocytes Auto (Unsp spec) [#/Vol]Ordered By: Jordana Hopkins on 02-17-2024 Absolute lymphocyte count 3.32 X10^3/uL 0.83-4.51 [facility] Lymphocytes/100 WBC Auto (Un sp spec)Ordered By: Jordana Hopkins on 02-17-2024 Automated lymphocyte count as percentage of total leukocytes 31.1 % 19-41 [facility] MCV (RBC) [Entitic vol]Order ed By: Jordana Hopkins on 02-17-2024 MCV (mean corpuscular volume) determination 91.9 fL 81-99 [facility] Mean corpuscular hemoglobin (MCH) determinationOrdered By: Jordana Hopkins on 02-17-2024 Mean corpuscular hemoglobin (MCH) determination 28.7 pg 27.0-32.0 [facility] Mean corpuscular hemoglobin concentration (MCHC) determinationOrdered By: Jordana Hopkins on 02-17-2024 Mean corpuscular hemoglobin concentration (MCHC) determination 31.2 g/dL Low 32-36 [facility] Mean platelet volume determi nationOrdered By: Jordana Hopkins on 02-17-2024 Mean platelet volume determination 9.6 fl 6.2-12.0 [facility] Monocyte percentageOrdered B y: Jordana Hopkins on 02-17-2024 Monocyte percentage 6.4 % 0-10 [facility] Neutrophil percentageOrdered By: Jordana Hopkins on 02-17-2024 Neutrophil percentage 59.9 % 47-70 [facility] Nucleated red blood cell per centageOrdered By: Jordana Hopkins on 02-17-2024 Nucleated red blood cell percentage 0 % 0-5 [facility] Platelet countOrdered By: Meaghan Hopkins on 02-17-2024 Platelet count 226 K/mm3 150-450 [facility] Potassium measurementOrdered By: Jordana Hopkins on 02-17-2024 Potassium measurement 3.3 mmol/L Low 3.5-5.1 [facility] RBC Auto (Bld) [#/Vol]Ordere d By: Jordana Hopkins on 02-17-2024 Automated blood erythrocyte count 3.59 M/mm3 Low 4.2-5.4 [facility] Serum anion gap measurementO rdered By: Jordana Hopkins on 02-17-2024 Serum anion gap measurement 6 5-15 [facility] Sodium levelOrdered By: Jordana Hopkins on 02-17-2024 Sodium level 142 mmol/L 136-145 [facility] Urea nitrogen [Mass/Vol]Orde red By: Jordana Hopkins on 02-17-2024 Serum or plasma urea nitrogen measurement (mass/volume) 17 mg/dL 7-18 [facility] White blood cell (WBC) count Ordered By: Jordana Hopkins on 02-17-2024 White blood cell (WBC) count 10.7 K/mm3 4.4-11.0 [facility] Basic Metabolic Profile (BMP )on 02-16-2024 BUN/CRE 28.0 RATIO High 10-20 [facility] Comment on above: Performed By: #### L 100.0100, L500.2500 ####[facility] [address] [place], [address] CA,Total 8.9 mg/dL Normal 8.5-10.1 [facility] Comment on above: Performed By: #### L 100.0100, L500.2500 ####[facility] [address] [place], [address] Chloride [Moles/Vol] 111 mmol/L High 98-107 [facility] Comment on above: Performed By: #### L 100.0100, L500.2500 ####[facility] [address] [place], [address] CO2 [Moles/Vol] 25.0 mmol/L Normal 21.0-32.0 [facility] Comment on above: Performed By: #### L 100.0100, L500.2500 ####[facility] [address] [place], [address] Creatinine [Mass/Vol] 0.82 mg/dL Normal 0.55-1.02 [facility] Comment on above: Result Comment: The validity of the calculated GFR GFRAA in patients over70 years has not been determined. Clinical correlation isessential. Performed By: #### L 100.0100, L500.2500 ####[facility] [address] [place], [address] ECRCL 62.20 ml/min Normal [facility] Comment on above: Performed By: #### L 100.0100, L500.2500 ####[facility] [address] [place], [address] EST GFR - AA 88 mL/min Normal >60 [facility] Comment on above: Result Comment: Afri can Macanese GFR Calc Performed By: #### L 100.0100, L500.2500 ####[facility] [address] [place], [address] GAP 5 Normal 5-15 [facility] Comment on above: Performed By: #### L 100.0100, L500.2500 ####[facility] [address] [place], [address] GFR/1.73 sq M.predicted among non-blacks MDRD (S/P/Bld) [Vol rate/Area] 73 mL/min/{1.73_m2} Normal >60 [facility] Comment on above: Result Comment: Non- GFR Calc Performed By: #### L 100.0100, L500.2500 ####[facility] [address] [place], [address] Glucose [Mass/Vol] 131 mg/dL High 74-106 [facility] Comment on above: Result Comment: Fast ing Glucose result greater than or equal to 126 mg/dLsuggests DIABETES MELLITUS per A.D.A. criteria. Performed By: #### L 100.0100, L500.2500 ####[facility] [address] [place], [address] Potassium [Moles/Vol] 4.0 mmol/L Normal 3.5-5.1 [facility] Comment on above: Performed By: #### L 100.0100, L500.2500 ####[facility] [address] [place], [address] Sodium [Moles/Vol] 142 mmol/L Normal 136-145 [facility] Comment on above: Performed By: #### L 100.0100, L500.2500 ####[facility] [address] [place], [address] Urea nitrogen [Mass/Vol] 23 mg/dL High 7-18 [facility] Comment on above: Performed By: #### L 100.0100, L500.2500 ####[facility] [address] [place], [address] Bedside Glucoseon 02-16-2024 FINGERSTICK GLU 163 mg/dL High 74-106 [facility] Comment on above: Result Comment: GERALDO GEMENT OF PATIENT CARE PER NURSING PROTOCOL Performed By: #### L 501.080 ####[facility] [address] [place], [address] FINGERSTICK GLU 130 mg/dL High 74-106 [facility] Comment on above: Result Comment: GERALDO GEMENT OF PATIENT CARE PER NURSING PROTOCOL Performed By: #### L 501.080 ####[facility] [address] [place], [address] FINGERSTICK GLU 107 mg/dL High 74-106 [facility] Comment on above: Result Comment: GERALDO GEMENT OF PATIENT CARE PER NURSING PROTOCOL Performed By: #### L 501.080 ####[facility] [address] [place], [address] FINGERSTICK GLU 141 mg/dL High 74-106 [facility] Comment on above: Result Comment: GERALDO GEMENT OF PATIENT CARE PER NURSING PROTOCOL Performed By: #### L 501.080 ####[facility] [address] [place], [address] CBC W/Diff, Automatedon 01-0 4-2024 Absolute Lymph 2.93 X10 3/uL Normal 0.83-4.51 [facility] Comment on above: Performed By: #### L 100.0100, L500.2500 ####[facility] [address] [place], [address] Absolute Neut 7.8 X10 3/uL High 2.0-7.7 [facility] Comment on above: Performed By: #### L 100.0100, L500.2500 ####[facility] [address] [place], [address] Basophils/100 WBC (Bld) 0.2 % Normal 0-1 [facility] Comment on above: Performed By: #### L 100.0100, L500.2500 ####[facility] [address] [place], [address] Eosinophils/100 WBC (Bld) 1.1 % Normal 0-5 [facility] Comment on above: Performed By: #### L 100.0100, L500.2500 ####[facility] [address] [place], [address] Erythrocyte distribution width (RBC) [Ratio] 13.4 % Normal 11.6-14.6 [facility] Comment on above: Performed By: #### L 100.0100, L500.2500 ####[facility] [address] [place], [address] Hematocrit (Bld) [Volume fraction] 33.5 % Low 37-47 [facility] Comment on above: Performed By: #### L 100.0100, L500.2500 ####[facility] [address] [place], [address] Hemoglobin (Bld) [Mass/Vol] 10.5 g/dL Low 12.0-15.0 [facility] Comment on above: Performed By: #### L 100.0100, L500.2500 ####[facility] [address] [place], [address] IG% 0.400 Normal 0.0-0.9 [facility] Comment on above: Result Comment: IG% - Immature Granulocytes (promyelocytes, myelocytes andmetamyelocytes) > 1% indicates that a LEFT SHIFT is Present. Performed By: #### L 100.0100, L500.2500 ####[facility] [address] [place], [address] Lymphocytes/100 WBC (Bld) 25.0 % Normal 19-41 [facility] Comment on above: Performed By: #### L 100.0100, L500.2500 ####[facility] [address] [place], [address] MCH (RBC) [Entitic mass] 29.4 pg Normal 27.0-32.0 [facility] Comment on above: Performed By: #### L 100.0100, L500.2500 ####[facility] [address] [place], [address] MCHC (RBC) [Mass/Vol] 31.3 g/dL Low 32-36 [facility] Comment on above: Performed By: #### L 100.0100, L500.2500 ####[facility] [address] [place], [address] MCV (RBC) [Entitic vol] 93.8 fL Normal 81-99 [facility] Comment on above: Performed By: #### L 100.0100, L500.2500 ####[facility] [address] [place], [address] Monocytes/100 WBC (Bld) 6.7 % Normal 0-10 [facility] Comment on above: Performed By: #### L 100.0100, L500.2500 ####[facility] [address] [place], [address] Neutrophils/100 WBC (Bld) 66.6 % Normal 47-70 [facility] Comment on above: Performed By: #### L 100.0100, L500.2500 ####[facility] [address] [place], [address] Nucleated RBC (Bld) [#/Vol] 0 10*3/uL Normal 0-5 [facility] Comment on above: Performed By: #### L 100.0100, L500.2500 ####[facility] [address] [place], [address] Platelet mean volume (Bld) [Entitic vol] 10.0 fL Normal 6.2-12.0 [facility] Comment on above: Performed By: #### L 100.0100, L500.2500 ####[facility] [address] [place], [address] Platelets (Bld) [#/Vol] 236 10*3/uL Normal 150-450 [facility] Comment on above: Performed By: #### L 100.0100, L500.2500 ####[facility] [address] [place], [address] RBC (Bld) [#/Vol] 3.57 10*6/uL Low 4.2-5.4 [facility] Comment on above: Performed By: #### L 100.0100, L500.2500 ####[facility] [address] [place], [address] RDW SD 46.5 fl High 35.1-43.9 [facility] Comment on above: Performed By: #### L 100.0100, L500.2500 ####[facility] [address] [place], [address] WBC (Bld) [#/Vol] 11.7 10*3/uL High 4.4-11.0 [facility] Comment on above: Performed By: #### L 100.0100, L500.2500 ####[facility] [address] [place], [address] Basic Metabolic Profile (BMP )on 02-15-2024 BUN/CRE 25.9 RATIO High 10-20 [facility] Comment on above: Performed By: #### L 100.0100, L500.2500 ####[facility] [address] [place], [address] CA,Total 8.8 mg/dL Normal 8.5-10.1 [facility] Comment on above: Performed By: #### L 100.0100, L500.2500 ####[facility] [address] [place], [address] Chloride [Moles/Vol] 111 mmol/L High 98-107 [facility] Comment on above: Performed By: #### L 100.0100, L500.2500 ####[facility] [address] [place], [address] CO2 [Moles/Vol] 23.0 mmol/L Normal 21.0-32.0 [facility] Comment on above: Performed By: #### L 100.0100, L500.2500 ####[facility] [address] [place], [address] Creatinine [Mass/Vol] 0.89 mg/dL Normal 0.55-1.02 [facility] Comment on above: Result Comment: The validity of the calculated GFR GFRAA in patients over70 years has not been determined. Clinical correlation isessential. Performed By: #### L 100.0100, L500.2500 ####[facility] [address] [place], [address] ECRCL 57.20 ml/min Normal [facility] Comment on above: Performed By: #### L 100.0100, L500.2500 ####[facility] [address] [place], [address] EST GFR - AA 81 mL/min Normal >60 [facility] Comment on above: Result Comment: Afri can Macanese GFR Calc Performed By: #### L 100.0100, L500.2500 ####[facility] [address] [place], [address] GAP 7 Normal 5-15 [facility] Comment on above: Performed By: #### L 100.0100, L500.2500 ####[facility] [address] [place], [address] GFR/1.73 sq M.predicted among non-blacks MDRD (S/P/Bld) [Vol rate/Area] 67 mL/min/{1.73_m2} Normal >60 [facility] Comment on above: Result Comment: Non- GFR Calc Performed By: #### L 100.0100, L500.2500 ####[facility] [address] [place], [address] Glucose [Mass/Vol] 181 mg/dL High 74-106 [facility] Comment on above: Result Comment: Fast ing Glucose result greater than or equal to 126 mg/dLsuggests DIABETES MELLITUS per A.D.A. criteria. Performed By: #### L 100.0100, L500.2500 ####[facility] [address] [place], [address] Potassium [Moles/Vol] 3.9 mmol/L Normal 3.5-5.1 [facility] Comment on above: Performed By: #### L 100.0100, L500.2500 ####[facility] [address] [place], [address] Sodium [Moles/Vol] 142 mmol/L Normal 136-145 [facility] Comment on above: Performed By: #### L 100.0100, L500.2500 ####[facility] [address] [place], [address] Urea nitrogen [Mass/Vol] 23 mg/dL High 7-18 [facility] Comment on above: Performed By: #### L 100.0100, L500.2500 ####[facility] [address] [place], [address] Bedside Glucoseon 02-15-2024 FINGERSTICK GLU 158 mg/dL High 74-106 [facility] Comment on above: Result Comment: GERALDO GEMENT OF PATIENT CARE PER NURSING PROTOCOL Performed By: #### L 501.080 ####[facility] [address] [place], [address] FINGERSTICK GLU 152 mg/dL High 74-106 [facility] Comment on above: Result Comment: GERALDO GEMENT OF PATIENT CARE PER NURSING PROTOCOL Performed By: #### L 501.080 ####[facility] [address] [place], [address] FINGERSTICK GLU 166 mg/dL High 74-106 [facility] Comment on above: Result Comment: GERALDO GEMENT OF PATIENT CARE PER NURSING PROTOCOL Performed By: #### L 501.080 ####[facility] [address] [place], [address] CBC W/Diff, Automatedon Absolute Lymph 2.03 X10 3/uL Normal 0.83-4.51 [facility] Comment on above: Performed By: #### L 100.0100, L500.2500 ####[facility] [address] [place], [address] Absolute Neut 11.7 X10 3/uL High 2.0-7.7 [facility] Comment on above: Performed By: #### L 100.0100, L500.2500 ####[facility] [address] [place], [address] Basophils/100 WBC (Bld) 0.1 % Normal 0-1 [facility] Comment on above: Performed By: #### L 100.0100, L500.2500 ####[facility] [address] [place], [address] Eosinophils/100 WBC (Bld) 0.5 % Normal 0-5 [facility] Comment on above: Performed By: #### L 100.0100, L500.2500 ####[facility] [address] [place], [address] Erythrocyte distribution width (RBC) [Ratio] 13.5 % Normal 11.6-14.6 [facility] Comment on above: Performed By: #### L 100.0100, L500.2500 ####[facility] [address] [place], [address] Hematocrit (Bld) [Volume fraction] 36.2 % Low 37-47 [facility] Comment on above: Performed By: #### L 100.0100, L500.2500 ####[facility] [address] [place], [address] Hemoglobin (Bld) [Mass/Vol] 11.5 g/dL Low 12.0-15.0 [facility] Comment on above: Performed By: #### L 100.0100, L500.2500 ####[facility] [address] [place], [address] IG% 0.500 Normal 0.0-0.9 [facility] Comment on above: Result Comment: IG% - Immature Granulocytes (promyelocytes, myelocytes andmetamyelocytes) > 1% indicates that a LEFT SHIFT is Present. Performed By: #### L 100.0100, L500.2500 ####[facility] [address] [place], [address] Lymphocytes/100 WBC (Bld) 13.5 % Low 19-41 [facility] Comment on above: Performed By: #### L 100.0100, L500.2500 ####[facility] [address] [place], [address] MCH (RBC) [Entitic mass] 29.0 pg Normal 27.0-32.0 [facility] Comment on above: Performed By: #### L 100.0100, L500.2500 ####[facility] [address] [place], [address] MCHC (RBC) [Mass/Vol] 31.8 g/dL Low 32-36 [facility] Comment on above: Performed By: #### L 100.0100, L500.2500 ####[facility] [address] [place], [address] MCV (RBC) [Entitic vol] 91.4 fL Normal 81-99 [facility] Comment on above: Performed By: #### L 100.0100, L500.2500 ####[facility] [address] [place], [address] Monocytes/100 WBC (Bld) 7.7 % Normal 0-10 [facility] Comment on above: Performed By: #### L 100.0100, L500.2500 ####[facility] [address] [place], [address] Neutrophils/100 WBC (Bld) 77.7 % High 47-70 [facility] Comment on above: Performed By: #### L 100.0100, L500.2500 ####[facility] [address] [place], [address] Nucleated RBC (Bld) [#/Vol] 0 10*3/uL Normal 0-5 [facility] Comment on above: Performed By: #### L 100.0100, L500.2500 ####[facility] [address] [place], [address] Platelet mean volume (Bld) [Entitic vol] 9.7 fL Normal 6.2-12.0 [facility] Comment on above: Performed By: #### L 100.0100, L500.2500 ####[facility] [address] [place], [address] Platelets (Bld) [#/Vol] 280 10*3/uL Normal 150-450 [facility] Comment on above: Performed By: #### L 100.0100, L500.2500 ####[facility] [address] [place], [address] RBC (Bld) [#/Vol] 3.96 10*6/uL Low 4.2-5.4 [facility] Comment on above: Performed By: #### L 100.0100, L500.2500 ####[facility] [address] [place], [address] RDW SD 44.8 fl High 35.1-43.9 [facility] Comment on above: Performed By: #### L 100.0100, L500.2500 ####[facility] [address] [place], [address] WBC (Bld) [#/Vol] 15.0 10*3/uL High 4.4-11.0 [facility] Comment on above: Performed By: #### L 100.0100, L500.2500 ####[facility] [address] [place], [address] Urine Cultureon 02-15-2024 URC Normal [facility] Comment on above: Performed By: #### M 100.2200 ####[facility] [address] [place], [address] ALP [Catalytic activity/Vol] Ordered By: Tamiko Quigley on 02-14-2024 Serum or plasma alkaline phosphatase measurement 96 U/L 45-117 [facility] ALT [Catalytic activity/Vol] Ordered By: Tamiko Quigley on 02-14-2024 Serum or plasma alanine aminotransferase (ALT) measurement 19 U/L 13-56 [facility] Albumin to globulin ratioOrd ered By: Tamiko Quigley on 02-14-2024 Albumin to globulin ratio 1.0 RATIO 0.9-2.4 [facility] Ammoniaon 02-14-2024 Ammonia (P) [Moles/Vol] 13.0 umol/L Normal 11-32 [facility] Comment on above: Performed By: #### L 503.5510 ####[facility] [address] [place], [address] Arterial patency Wrist arter y --pre arterial punctureOrdered By: Tamiko Quigley on 02-14-2024 Assessment of wrist artery patency prior to arterial puncture N/A [facility] Base excess Calc (BldV) [Mol es/Vol]Ordered By: Tamiko Quigley on 02-14-2024 Blood base excess determination -6 mmol/L Low -2-2 [facility] Basic Metabolic Profile (BMP )on 02-14-2024 BUN/CRE 22.5 RATIO High 10-20 [facility] Comment on above: Performed By: #### L 500.2500 ####[facility] [address] [place], [place], [address] CA,Total < 5.0 Invalid Interpretation Code 8.5-10.1 [facility] Comment on above: Result Comment: Crit ical Result(s) Called at: 01:27:17 02/14/2024 by: EVERETT. Results read back by Smiley Goff Performed By: #### L 500.2500 ####[facility] [address] [place], [address] Chloride [Moles/Vol] 125 mmol/L High 98-107 [facility] Comment on above: Performed By: #### L 500.2500 ####[facility] [address] [place], [address] CO2 [Moles/Vol] 14.0 mmol/L Low 21.0-32.0 [facility] Comment on above: Performed By: #### L 500.2500 ####[facility] [address] [place], [address] Creatinine [Mass/Vol] 0.49 mg/dL Low 0.55-1.02 [facility] Comment on above: Result Comment: The validity of the calculated GFR GFRAA in patients over70 years has not been determined. Clinical correlation isessential. Performed By: #### L 500.2500 ####[facility] [address] [place], [address] ECRCL 66.40 ml/min Normal [facility] Comment on above: Performed By: #### L 500.2500 ####[facility] [address] [place], [address] EST GFR - AA 161 mL/min Normal >60 [facility] Comment on above: Result Comment: Afri can Macanese GFR Calc Performed By: #### L 500.2500 ####[facility] [address] [place], [address] GAP 9 Normal 5-15 [facility] Comment on above: Performed By: #### L 500.2500 ####[facility] [address] [place], [address] GFR/1.73 sq M.predicted among non-blacks MDRD (S/P/Bld) [Vol rate/Area] 133 mL/min/{1.73_m2} Normal >60 [facility] Comment on above: Result Comment: Non- GFR Calc Performed By: #### L 500.2500 ####[facility] [address] [place], [address] Glucose [Mass/Vol] 192 mg/dL High 74-106 [facility] Comment on above: Result Comment: Fast ing Glucose result greater than or equal to 126 mg/dLsuggests DIABETES MELLITUS per A.D.A. criteria. Performed By: #### L 500.2500 ####[facility] [address] [place], [address] Potassium [Moles/Vol] 2.3 mmol/L Invalid Interpretation Code 3.5-5.1 [facility] Comment on above: Result Comment: Crit ical Result(s) Called at: 01:26:50 02/14/2024 by: EVERETT. Results read back by Smiley Goff Performed By: #### L 500.2500 ####[facility] [address] [place], [address] Sodium [Moles/Vol] 148 mmol/L High 136-145 [facility] Comment on above: Performed By: #### L 500.2500 ####[facility] [address] [place], [address] Urea nitrogen [Mass/Vol] 11 mg/dL Normal 7-18 [facility] Comment on above: Performed By: #### L 500.2500 ####[facility] [address] [place], [address] Bedside Glucoseon 02-14-2024 FINGERSTICK GLU 180 mg/dL High 74-106 [facility] Comment on above: Result Comment: GERALDO GEMENT OF PATIENT CARE PER NURSING PROTOCOL Performed By: #### L 501.080 ####[facility] [address] [place], [address] FINGERSTICK GLU 171 mg/dL High 74-106 [facility] Comment on above: Result Comment: GERALDO GEMENT OF PATIENT CARE PER NURSING PROTOCOL Performed By: #### L 501.080 ####[facility] [address] [place], [address] FINGERSTICK GLU 189 mg/dL High 74-106 [facility] Comment on above: Result Comment: GERALDO GEMENT OF PATIENT CARE PER NURSING PROTOCOL Performed By: #### L 501.080 ####[facility] [address] [place], [address] FINGERSTICK GLU 205 mg/dL High 74-106 [facility] Comment on above: Result Comment: GERALDO GEMENT OF PATIENT CARE PER NURSING PROTOCOL Performed By: #### L 501.080 ####[facility] [address] [place], [address] FINGERSTICK GLU 271 mg/dL High 74-106 [facility] Comment on above: Result Comment: GERALDO GEMENT OF PATIENT CARE PER NURSING PROTOCOL Performed By: #### L 501.080 ####[facility] [address] [place], [address] Bilirubin, totalOrdered By: Tamiko Quigley on 02-14-2024 Bilirubin, total 1.20 mg/dL High 0.20-1.00 [facility] Blood G[facility] TEST N/A Normal [facility] Comment on above: Performed By: #### L 9000.0800 ####[facility] [address] [place], [address] Base excess Calc (Bld) [Moles/Vol] -6 mmol/L Low -2 to +2 [facility] Comment on above: Performed By: #### L 9000.0800 ####[facility] [address] [place], [address] Blood Gas Type ART Normal [facility] Comment on above: Performed By: #### L 9000.0800 ####[facility] [address] [place], [address] CO2 [Moles/Vol] 18 mmol/L Normal [facility] Comment on above: Performed By: #### L 9000.0800 ####[facility] [address] [place], [address] FI02 21.0 Normal [facility] Comment on above: Performed By: #### L 9000.0800 ####[facility] [address] [place], [address] HCO3 (Bld) [Moles/Vol] 17.0 mmol/L Low 22-26 [facility] Comment on above: Performed By: #### L 8999.08 ####[facility] [address] [place], [address] Mode Not entered Normal [facility] Comment on above: Performed By: #### L 8999.08 ####[facility] [address] [place], [address] O2 Delivery Dev Room Air Normal [facility] Comment on above: Performed By: #### L 8999.08 ####[facility] [address] [place], [address] pCO2 22.4 mmHg Low 35-45 [facility] Comment on above: Performed By: #### L 8999.08 ####[facility] [address] [place], [address] pH (Bld) 7.49 [pH] High 7.35-7.45 [facility] Comment on above: Performed By: #### L 8999.08 ####[facility] [address] [place], [address] PO2 76 mmHG Normal 75-100 [facility] Comment on above: Performed By: #### L 8999.08 ####[facility] [address] [place], [address] SITE L Radial Normal [facility] Comment on above: Performed By: #### L 8999.08 ####[facility] [address] [place], [address] SO2 96 Normal 95-99 [facility] Comment on above: Performed By: #### L 8999.08 ####[facility] [address] [place], [address] Blood bicarbonate measuremen tOrdered By: Tamiko Quigley on 02-14-2024 Blood bicarbonate measurement 17.0 mmol/L Low 22-26 [facility] CBC W/Diff, Automatedon Absolute Lymph 1.44 X10 3/uL Normal 0.83-4.51 [facility] Comment on above: Performed By: #### L 100.0100 ####[facility] [address] [place], [address] Absolute Neut 18.6 X10 3/uL High 2.0-7.7 [facility] Comment on above: Performed By: #### L 100.0100 ####[facility] [address] [place], [address] Basophils/100 WBC (Bld) 0.1 % Normal 0-1 [facility] Comment on above: Performed By: #### L 100.0100 ####[facility] [address] [place], [address] Eosinophils/100 WBC (Bld) 0.0 % Normal 0-5 [facility] Comment on above: Performed By: #### L 100.0100 ####[facility] [address] [place], [address] Erythrocyte distribution width (RBC) [Ratio] 13.1 % Normal 11.6-14.6 [facility] Comment on above: Performed By: #### L 100.0100 ####[facility] [address] [place], [address] Hematocrit (Bld) [Volume fraction] 42.7 % Normal 37-47 [facility] Comment on above: Performed By: #### L 100.0100 ####[facility] [address] [place], [address] Hemoglobin (Bld) [Mass/Vol] 14.0 g/dL Normal 12.0-15.0 [facility] Comment on above: Performed By: #### L 100.0100 ####[facility] [address] [place], [address] IG% 0.700 Normal 0.0-0.9 [facility] Comment on above: Result Comment: IG% - Immature Granulocytes (promyelocytes, myelocytes andmetamyelocytes) > 1% indicates that a LEFT SHIFT is Present. Performed By: #### L 100.0100 ####[facility] [address] [place], [address] Lymphocytes/100 WBC (Bld) 6.7 % Low 19-41 [facility] Comment on above: Performed By: #### L 100.0100 ####[facility] [address] [place], [address] MCH (RBC) [Entitic mass] 29.5 pg Normal 27.0-32.0 [facility] Comment on above: Performed By: #### L 100.0100 ####[facility] [address] [place], [address] MCHC (RBC) [Mass/Vol] 32.8 g/dL Normal 32-36 [facility] Comment on above: Performed By: #### L 100.0100 ####[facility] [address] [place], [address] MCV (RBC) [Entitic vol] 89.9 fL Normal 81-99 [facility] Comment on above: Performed By: #### L 100.0100 ####[facility] [address] [place], [address] Monocytes/100 WBC (Bld) 6.5 % Normal 0-10 [facility] Comment on above: Performed By: #### L 100.0100 ####[facility] [address] [place], [address] Neutrophils/100 WBC (Bld) 86.0 % High 47-70 [facility] Comment on above: Performed By: #### L 100.0100 ####[facility] [address] [place], [address] Nucleated RBC (Bld) [#/Vol] 0 10*3/uL Normal 0-5 [facility] Comment on above: Performed By: #### L 100.0100 ####[facility] [address] [place], [address] Platelet mean volume (Bld) [Entitic vol] 9.3 fL Normal 6.2-12.0 [facility] Comment on above: Performed By: #### L 100.0100 ####[facility] [address] [place], [address] Platelets (Bld) [#/Vol] 335 10*3/uL Normal 150-450 [facility] Comment on above: Performed By: #### L 100.0100 ####[facility] [address] [place], [address] RBC (Bld) [#/Vol] 4.75 10*6/uL Normal 4.2-5.4 [facility] Comment on above: Performed By: #### L 100.0100 ####[facility] [address] [place], [address] RDW SD 42.8 fl Normal 35.1-43.9 [facility] Comment on above: Performed By: #### L 100.0100 ####[facility] [address] [place], [address] WBC (Bld) [#/Vol] 21.6 10*3/uL High 4.4-11.0 [facility] Comment on above: Performed By: #### L 100.0100 ####[facility] [address] [place], [address] COVID 19 AG RAPID (RN HANANE Gonzales)on 02-14-2024 SARS-CoV-2 (COVID-19) RNA MARILEE+probe Ql (Unsp spec) Normal [facility] Comment on above: Performed By: #### M 100.505 ####[facility] [address] [place], [address] Comprehensive Metabolic Prof ilon 02-14-2024 Albumin [Mass/Vol] 3.8 g/dL Normal 3.2-5.0 [facility] Comment on above: Performed By: #### L 500.4050, L501.9520, L501.2300, L501.5200 ####[facility] [address] [place], [address] Albumin/Globulin [Mass ratio] 1.0 {ratio} Normal 0.9-2.4 [facility] Comment on above: Performed By: #### L 500.4050, L501.9520, L501.2300, L501.5200 ####[facility] [address] [place], [address] ALK P 96 U/L Normal 45-117 [facility] Comment on above: Performed By: #### L 500.4050, L501.9520, L501.2300, L501.5200 ####[facility] [address] [place], [address] ALT [Catalytic activity/Vol] 19 U/L Normal 13-56 [facility] Comment on above: Performed By: #### L 500.4050, L501.9520, L501.2300, L501.5200 ####[facility] [address] [place], [address] AST [Catalytic activity/Vol] 25 U/L Normal 15-37 [facility] Comment on above: Performed By: #### L 500.4050, L501.9520, L501.2300, L501.5200 ####[facility] [address] [place], [address] Bilirubin [Mass/Vol] 1.20 mg/dL High 0.20-1.00 [facility] Comment on above: Result Comment: For patients on eltrombopag therapy, use of Dimension [place] TBIL is not recommended. Performed By: #### L 500.4050, L501.9520, L501.2300, L501.5200 ####[facility] [address] [place], [address] BUN/CRE 12.3 RATIO Normal 10-20 [facility] Comment on above: Performed By: #### L 500.4050, L501.9520, L501.2300, L501.5200 ####[facility] [address] [place], [address] CA,Total 9.1 mg/dL Normal 8.5-10.1 [facility] Comment on above: Performed By: #### L 500.4050, L501.9520, L501.2300, L501.5200 ####[facility] [address] [place], [address] Chloride [Moles/Vol] 104 mmol/L Normal 98-107 [facility] Comment on above: Performed By: #### L 500.4050, L501.9520, L501.2300, L501.5200 ####[facility] [address] [place], [address] CO2 [Moles/Vol] 18.0 mmol/L Low 21.0-32.0 [facility] Comment on above: Performed By: #### L 500.4050, L501.9520, L501.2300, L501.5200 ####[facility] [address] [place], [address] Creatinine [Mass/Vol] 1.22 mg/dL High 0.55-1.02 [facility] Comment on above: Result Comment: The validity of the calculated GFR GFRAA in patients over70 years has not been determined. Clinical correlation isessential. Performed By: #### L 500.4050, L501.9520, L501.2300, L501.5200 ####[facility] [address] [place], [address] ECRCL 41.78 ml/min Normal [facility] Comment on above: Performed By: #### L 500.4050, L501.9520, L501.2300, L501.5200 ####[facility] [address] [place], [address] EST GFR - AA 56 mL/min Low >60 [facility] Comment on above: Result Comment: Afri can Macanese GFR Calc Performed By: #### L 500.4050, L501.9520, L501.2300, L501.5200 ####[facility] [address] [place], [address] GAP 14 Normal 5-15 [facility] Comment on above: Performed By: #### L 500.4050, L501.9520, L501.2300, L501.5200 ####[facility] [id number] [place], [address] GFR/1.73 sq M.predicted among non-blacks MDRD (S/P/Bld) [Vol rate/Area] 46 mL/min/{1.73_m2} Low >60 [facility] Comment on above: Result Comment: Non- GFR Calc Performed By: #### L 500.4050, L501.9520, L501.2300, L501.5200 ####[facility] [id number] [place], [address] Globulin (S) [Mass/Vol] 3.8 g/dL Normal 2.2-4.2 [facility] Comment on above: Performed By: #### L 500.4050, L501.9520, L501.2300, L501.5200 ####[facility] [address] [place], [address] Glucose [Mass/Vol] 308 mg/dL High 74-106 [facility] Comment on above: Result Comment: Gluc ose result greater than or equal to 200 mg/dLsuggests DIABETES MELLITUS per A.D.A. criteria. Performed By: #### L 500.4050, L501.9520, L501.2300, L501.5200 ####[facility] [address] [place], [address] Potassium [Moles/Vol] 3.7 mmol/L Normal 3.5-5.1 [facility] Comment on above: Performed By: #### L 500.4050, L501.9520, L501.2300, L501.5200 ####[facility] [address] [place], [address] Sodium [Moles/Vol] 135 mmol/L Low 136-145 [facility] Comment on above: Performed By: #### L 500.4050, L501.9520, L501.2300, L501.5200 ####[facility] [address] [place], [address] T PROT 7.6 g/dL Normal 6.4-8.2 [facility] Comment on above: Performed By: #### L 500.4050, L501.9520, L501.2300, L501.5200 ####[facility] [address] [place], [address] Urea nitrogen [Mass/Vol] 15 mg/dL Normal 7-18 [facility] Comment on above: Performed By: #### L 500.4050, L501.9520, L501.2300, L501.5200 ####[facility] [address] [place], [place], [address] Consultation - Intensiviston 02-14-2024 Consultation - Chief Dog License Inspector Normal [facility] Determination of fraction of inspired oxygenOrdered By: Tamiko Quigley on 02-14-2024 Determination of fraction of inspired oxygen 21.0 [facility] Lactic Acidon 02-14-2024 Lactate [Moles/Vol] 3.8 mmol/L Invalid Interpretation Code 0.4-1.9 [facility] Comment on above: Result Comment: Crit ical Result(s) Called at: 01:52:58 02/14/2024 by: EVERETT. Results read back by Demar Performed By: #### L 503.6005 ####[facility] [address] [place], [place], [id number] Lactic acid measurementOrder ed By: Nico Arce on 02-14-2024 Lactic acid measurement 3.8 mmol/L High 0.4-2.0 [facility] M R Staph Aureus DNA by PCRo n 02-14-2024 MRSA DNA ASSAY Negative Normal Negative [facility] Comment on above: Performed By: #### L 8200.1000 ####[facility] [address] [place], [place], [address] MRSA detection PCROrdered By : Tamiko Quigley on 02-14-2024 MRSA detection PCR Negative Negative [facility] Magnesiumon 02-14-2024 Magnesium [Mass/Vol] 1.5 mg/dL Low 1.6-2.6 [facility] Comment on above: Performed By: #### L 500.4050, L501.9520, L501.2300, L501.5200 ####[facility] [address] [place], [place], [address] Magnesium measurementOrdered By: Tamiko Quigley on 02-14-2024 Magnesium measurement 1.5 mg/dL Low 1.6-2.6 [facility] No Panel InformationOrdered By: Tamiko Quigley on 02-14-2024 25 U/L 15-37 [facility] ART [facility] L Radial [facility] Not entered [facility] Room Air [facility] Oxygen saturation measuremen tOrdered By: Tamiko Quigley on 02-14-2024 Oxygen saturation measurement 96 % 95-99 [facility] Partial pressure of carbon d ioxide measurementOrdered By: Tamiko Quigley on 02-14-2024 Partial pressure of carbon dioxide measurement 22.4 mmHg Low 35-45 [facility] Partial pressure of oxygen m easurementOrdered By: Tamiko Quigley on 02-14-2024 Partial pressure of oxygen measurement 76 mmHG 75-100 [facility] Phosphoruson 02-14-2024 Phosphate [Mass/Vol] 2.2 mg/dL Low 2.5-4.9 [facility] Comment on above: Performed By: #### L 500.4050, L501.9520, L501.2300, L501.5200 ####[facility] [address] [place], [address] Phosphorus measurementOrdere d By: Tamiko Quigley on 02-14-2024 Phosphorus measurement 2.2 mg/dL Low 2.5-4.9 [facility] Procalcitoninon 02-14-2024 Procalcitonin 0.33 ng/mL High 0.00-0.09 [facility] Comment on above: Result Comment: A pr ocalcitonin (PCT) level above 2.0 ng/mL on the first day of ICU admission is associated with a high risk for progression to severe sepsis and/or septic shock. A PCT level below 0.5 ng/mL on the first day of ICU admission is associated with a low risk for progression to severe and/or septic shock. Note: Concentrations <0.5 ng/mL do not exclude an infection on account of localized infections (without systemic signs) which can be associated with such low concentrations, or a systemic infection in its initial stages (<6 hours). Furthermore, increased procalcitonin can occur without infection. PCT concentrations between 0.5 and 2.0 ng/mL should be interpreted taking into account the patient's history. It is recommended to retest PCT within 6-24 hours if any concentrations <2 ng/mL are obtained. Performed By: #### L 509.7000 ####[facility] [address] [place], [address] Procalcitonin [Mass/Vol]Orde red By: Tamiko Quigley on 02-14-2024 Serum procalcitonin measurement 0.33 ng/mL High 0.00-0.09 [facility] RESPIRATORY PANEL MOLECULARo n 02-14-2024 RP PANEL Normal [facility] Comment on above: Performed By: #### M 100.638 ####[facility] [address] [place], [address] Serum or plasma albumin timbo urement (mass/volume)Ordered By: Tamiko Quigley on 02-14-2024 Serum or plasma albumin measurement (mass/volume) 3.8 g/dL 2.2-4.2 [facility] TSH QnOrdered By: Tamiko Hendrickson on 02-14-2024 Serum or plasma thyroid stimulating hormone (TSH) measurement (units/volume) 2.180 uIU/mL 0.358-3.740 [facility] Thyroid Stim Hormone (TSH)on 02-14-2024 TSH 2.180 uIU/mL Normal 0.358-3.740 [facility] Comment on above: Performed By: #### L 500.4050, L501.9520, L501.2300, L501.5200 ####[facility] [address] [place], [place], [id number] Total carbon dioxide measure mentOrdered By: Tamiko Quigley on 02-14-2024 Total carbon dioxide measurement 18 mmol/L [facility] Total proteinOrdered By: Paola Quigley on 02-14-2024 Total protein 7.6 g/dL 6.4-8.2 [facility] Venous blood ammonia measure mentOrdered By: Tamiko Quigley on 02-14-2024 Venous blood ammonia measurement 13.0 umol/L 11-32 [facility] pH (Unsp spec)Ordered By: Gerry Quigley on 01-02-2025 Measurement, pH 7.49 High 7.35-7.45 [facility] 12 Lead EKGon 02-13-2024 12 Lead EKG Normal [facility] Abdomen/Pelvis without Conto n 02-13-2024 Abdomen/Pelvis without Cont Normal [facility] Blood cultureOrdered By: Talia Arce on 02-13-2024 Blood culture No growth in 5 days. [facility] Blood culture No growth in 5 days. [facility] Brain/Head without Contrasto n 02-13-2024 Brain/Head without Contrast Normal [facility] CBC W/Diff, Automatedon Absolute Lymph 1.33 X10 3/uL Normal 0.83-4.51 [facility] Comment on above: Performed By: #### M 200.1000, L500.4050, L100.0100, L300.4310, L300.3900, L503.6005, L501.4020 ####[facility] [address] [place], [address] Absolute Neut 18.6 X10 3/uL High 2.0-7.7 [facility] Comment on above: Performed By: #### M 200.1000, L500.4050, L100.0100, L300.4310, L300.3900, L503.6005, L501.4020 ####[facility] [address] [place], [address] Basophils/100 WBC (Bld) 0.3 % Normal 0-1 [facility] Comment on above: Performed By: #### M 200.1000, L500.4050, L100.0100, L300.4310, L300.3900, L503.6005, L501.4020 ####[facility] [address] [place], [address] Eosinophils/100 WBC (Bld) 0.2 % Normal 0-5 [facility] Comment on above: Performed By: #### M 200.1000, L500.4050, L100.0100, L300.4310, L300.3900, L503.6005, L501.4020 ####[facility] [address] [place], [address] Erythrocyte distribution width (RBC) [Ratio] 12.7 % Normal 11.6-14.6 [facility] Comment on above: Performed By: #### M 200.1000, L500.4050, L100.0100, L300.4310, L300.3900, L503.6005, L501.4020 ####[facility] [address] [place], [address] Hematocrit (Bld) [Volume fraction] 43.8 % Normal 37-47 [facility] Comment on above: Performed By: #### M 200.1000, L500.4050, L100.0100, L300.4310, L300.3900, L503.6005, L501.4020 ####[facility] [address] [place], [address] Hemoglobin (Bld) [Mass/Vol] 13.7 g/dL Normal 12.0-15.0 [facility] Comment on above: Performed By: #### M 200.1000, L500.4050, L100.0100, L300.4310, L300.3900, L503.6005, L501.4020 ####[facility] [address] [place], [address] IG% 0.900 Normal 0.0-0.9 [facility] Comment on above: Result Comment: IG% - Immature Granulocytes (promyelocytes, myelocytes andmetamyelocytes) > 1% indicates that a LEFT SHIFT is Present. Performed By: #### M 200.1000, L500.4050, L100.0100, L300.4310, L300.3900, L503.6005, L501.4020 ####[facility] [address] [place], [address] Lymphocytes/100 WBC (Bld) 6.3 % Low 19-41 [facility] Comment on above: Performed By: #### M 200.1000, L500.4050, L100.0100, L300.4310, L300.3900, L503.6005, L501.4020 ####[facility] [address] [place], [address] MCH (RBC) [Entitic mass] 29.6 pg Normal 27.0-32.0 [facility] Comment on above: Performed By: #### M 200.1000, L500.4050, L100.0100, L300.4310, L300.3900, L503.6005, L501.4020 ####[facility] [address] [place], [address] MCHC (RBC) [Mass/Vol] 31.3 g/dL Low 32-36 [facility] Comment on above: Performed By: #### M 200.1000, L500.4050, L100.0100, L300.4310, L300.3900, L503.6005, L501.4020 ####[facility] [address] [place], [address] MCV (RBC) [Entitic vol] 94.6 fL Normal 81-99 [facility] Comment on above: Performed By: #### M 200.1000, L500.4050, L100.0100, L300.4310, L300.3900, L503.6005, L501.4020 ####[facility] [address] [place], [address] Monocytes/100 WBC (Bld) 3.6 % Normal 0-10 [facility] Comment on above: Performed By: #### M 200.1000, L500.4050, L100.0100, L300.4310, L300.3900, L503.6005, L501.4020 ####[facility] [address] [place], [address] Neutrophils/100 WBC (Bld) 88.7 % High 47-70 [facility] Comment on above: Performed By: #### M 200.1000, L500.4050, L100.0100, L300.4310, L300.3900, L503.6005, L501.4020 ####[facility] [address] [place], [address] Nucleated RBC (Bld) [#/Vol] 0 10*3/uL Normal 0-5 [facility] Comment on above: Performed By: #### M 200.1000, L500.4050, L100.0100, L300.4310, L300.3900, L503.6005, L501.4020 ####[facility] [address] [place], [address] Platelet mean volume (Bld) [Entitic vol] 9.5 fL Normal 6.2-12.0 [facility] Comment on above: Performed By: #### M 200.1000, L500.4050, L100.0100, L300.4310, L300.3900, L503.6005, L501.4020 ####[facility] [address] [place], [address] Platelets (Bld) [#/Vol] 345 10*3/uL Normal 150-450 [facility] Comment on above: Performed By: #### M 200.1000, L500.4050, L100.0100, L300.4310, L300.3900, L503.6005, L501.4020 ####[facility] [address] [place], [address] RBC (Bld) [#/Vol] 4.63 10*6/uL Normal 4.2-5.4 [facility] Comment on above: Performed By: #### M 200.1000, L500.4050, L100.0100, L300.4310, L300.3900, L503.6005, L501.4020 ####[facility] [address] [place], [address] RDW SD 43.7 fl Normal 35.1-43.9 [facility] Comment on above: Performed By: #### M 200.1000, L500.4050, L100.0100, L300.4310, L300.3900, L503.6005, L501.4020 ####[facility] [address] [place], [address] WBC (Bld) [#/Vol] 21.0 10*3/uL High 4.4-11.0 [facility] Comment on above: Performed By: #### M 200.1000, L500.4050, L100.0100, L300.4310, L300.3900, L503.6005, L501.4020 ####[facility] [address] [place], [address] Chest 1 View (Portable)on Chest 1 View (Portable) Normal [facility] Clarity (U)Ordered By: Bhargavi Arce on 02-13-2024 Urine clarity Clear Clear [facility] Color (U)Ordered By: Nico Arce on 02-13-2024 Urine color determination Yellow Yellow [facility] Comprehensive Metabolic Prof ilon 02-13-2024 Albumin [Mass/Vol] 3.9 g/dL Normal 3.2-5.0 [facility] Comment on above: Order Comment: 'TROP ' Serial specimen #1, #2 or #3: 1 Performed By: #### M 200.1000, L500.4050, L100.0100, L300.4310, L300.3900, L503.6005, L501.4020 ####[facility] [address] [place], [address] Albumin/Globulin [Mass ratio] 1.0 {ratio} Normal 0.9-2.4 [facility] Comment on above: Order Comment: 'TROP ' Serial specimen #1, #2 or #3: 1 Performed By: #### M 200.1000, L500.4050, L100.0100, L300.4310, L300.3900, L503.6005, L501.4020 ####[facility] [address] [place], [address] ALK P 104 U/L Normal 45-117 [facility] Comment on above: Order Comment: 'TROP ' Serial specimen #1, #2 or #3: 1 Performed By: #### M 200.1000, L500.4050, L100.0100, L300.4310, L300.3900, L503.6005, L501.4020 ####[facility] [address] [place], [address] ALT [Catalytic activity/Vol] 17 U/L Normal 13-56 [facility] Comment on above: Order Comment: 'TROP ' Serial specimen #1, #2 or #3: 1 Performed By: #### M 200.1000, L500.4050, L100.0100, L300.4310, L300.3900, L503.6005, L501.4020 ####[facility] [address] [place], [address] AST [Catalytic activity/Vol] 18 U/L Normal 15-37 [facility] Comment on above: Order Comment: 'TROP ' Serial specimen #1, #2 or #3: 1 Performed By: #### M 200.1000, L500.4050, L100.0100, L300.4310, L300.3900, L503.6005, L501.4020 ####[facility] [address] [place], [address] Bilirubin [Mass/Vol] 1.00 mg/dL Normal 0.20-1.00 [facility] Comment on above: Order Comment: 'TROP ' Serial specimen #1, #2 or #3: 1 Result Comment: For patients on eltrombopag therapy, use of Dimension [place] TBIL is not recommended. Performed By: #### M 200.1000, L500.4050, L100.0100, L300.4310, L300.3900, L503.6005, L501.4020 ####[facility] [address] [place], [address] BUN/CRE 12.4 RATIO Normal 10-20 [facility] Comment on above: Order Comment: 'TROP ' Serial specimen #1, #2 or #3: 1 Performed By: #### M 200.1000, L500.4050, L100.0100, L300.4310, L300.3900, L503.6005, L501.4020 ####[facility] [address] [place], [address] CA,Total 9.8 mg/dL Normal 8.5-10.1 [facility] Comment on above: Order Comment: 'TROP ' Serial specimen #1, #2 or #3: 1 Performed By: #### M 200.1000, L500.4050, L100.0100, L300.4310, L300.3900, L503.6005, L501.4020 ####[facility] [address] [place], [address] Chloride [Moles/Vol] 101 mmol/L Normal 98-107 [facility] Comment on above: Order Comment: 'TROP ' Serial specimen #1, #2 or #3: 1 Performed By: #### M 200.1000, L500.4050, L100.0100, L300.4310, L300.3900, L503.6005, L501.4020 ####[facility] [address] [place], [address] CO2 [Moles/Vol] 19.0 mmol/L Low 21.0-32.0 [facility] Comment on above: Order Comment: 'TROP ' Serial specimen #1, #2 or #3: 1 Performed By: #### M 200.1000, L500.4050, L100.0100, L300.4310, L300.3900, L503.6005, L501.4020 ####[facility] [address] [place], [address] Creatinine [Mass/Vol] 1.29 mg/dL High 0.55-1.02 [facility] Comment on above: Order Comment: 'TROP ' Serial specimen #1, #2 or #3: 1 Result Comment: The validity of the calculated GFR GFRAA in patients over70 years has not been determined. Clinical correlation isessential. Performed By: #### M 200.1000, L500.4050, L100.0100, L300.4310, L300.3900, L503.6005, L501.4020 ####[facility] [address] [place], [address] ECRCL 41.18 ml/min Normal [facility] Comment on above: Order Comment: 'TROP ' Serial specimen #1, #2 or #3: 1 Performed By: #### M 200.1000, L500.4050, L100.0100, L300.4310, L300.3900, L503.6005, L501.4020 ####[facility] [address] [place], [address] EST GFR - AA 53 mL/min Low >60 [facility] Comment on above: Order Comment: 'TROP ' Serial specimen #1, #2 or #3: 1 Result Comment: Afri can Mac[place] GFR Calc Performed By: #### M 200.1000, L500.4050, L100.0100, L300.4310, L300.3900, L503.6005, L501.4020 ####[facility] [address] [place], [address] GAP 17 High 5-15 [facility] Comment on above: Order Comment: 'TROP ' Serial specimen #1, #2 or #3: 1 Performed By: #### M 200.1000, L500.4050, L100.0100, L300.4310, L300.3900, L503.6005, L501.4020 ####[facility] [address] [place], [address] GFR/1.73 sq M.predicted among non-blacks MDRD (S/P/Bld) [Vol rate/Area] 43 mL/min/{1.73_m2} Low >60 [facility] Comment on above: Order Comment: 'TROP ' Serial specimen #1, #2 or #3: 1 Result Comment: Non- GFR Calc Performed By: #### M 200.1000, L500.4050, L100.0100, L300.4310, L300.3900, L503.6005, L501.4020 ####[facility] [address] [place], [address] Globulin (S) [Mass/Vol] 4.0 g/dL Normal 2.2-4.2 [facility] Comment on above: Order Comment: 'TROP ' Serial specimen #1, #2 or #3: 1 Performed By: #### M 200.1000, L500.4050, L100.0100, L300.4310, L300.3900, L503.6005, L501.4020 ####[facility] [address] [place], [address] Glucose [Mass/Vol] 374 mg/dL High 74-106 [facility] Comment on above: Order Comment: 'TROP ' Serial specimen #1, #2 or #3: 1 Result Comment: Gluc ose result greater than or equal to 200 mg/dLsuggests DIABETES MELLITUS per A.D.A. criteria. Performed By: #### M 200.1000, L500.4050, L100.0100, L300.4310, L300.3900, L503.6005, L501.4020 ####[facility] [address] [place], [address] Potassium [Moles/Vol] 4.1 mmol/L Normal 3.5-5.1 [facility] Comment on above: Order Comment: 'TROP ' Serial specimen #1, #2 or #3: 1 Performed By: #### M 200.1000, L500.4050, L100.0100, L300.4310, L300.3900, L503.6005, L501.4020 ####[facility] [address] [place], [address] Sodium [Moles/Vol] 137 mmol/L Normal 136-145 [facility] Comment on above: Order Comment: 'TROP ' Serial specimen #1, #2 or #3: 1 Performed By: #### M 200.1000, L500.4050, L100.0100, L300.4310, L300.3900, L503.6005, L501.4020 ####[facility] [address] [place], [address] T PROT 7.9 g/dL Normal 6.4-8.2 [facility] Comment on above: Order Comment: 'TROP ' Serial specimen #1, #2 or #3: 1 Performed By: #### M 200.1000, L500.4050, L100.0100, L300.4310, L300.3900, L503.6005, L501.4020 ####[facility] [address] [place], [address] Urea nitrogen [Mass/Vol] 16 mg/dL Normal 7-18 [facility] Comment on above: Order Comment: 'TROP ' Serial specimen #1, #2 or #3: 1 Performed By: #### M 200.1000, L500.4050, L100.0100, L300.4310, L300.3900, L503.6005, L501.4020 ####[facility] [address] [place], [place], [address] Emergency Department Summary on 02-13-2024 Emergency Department Summary Normal [facility] Glucose Ql (U)Ordered By: Uche Arce on 02-13-2024 Urine glucose detection 1000 mg/dl High Normal [facility] H AND P Exam - Hospitaliston 02-13-2024 H&P Exam - Hospitalist Normal Wo [facility] International normalized rat io (INR) calculationOrdered By: Nico Arce on 02-13-2024 International normalized ratio (INR) calculation 1.1 [facility] Ketones Test strip Ql (U)Ord ered By: Nico Arce on 02-13-2024 Urine ketones detection by test strip 15 mg/dl High Negative [facility] L501.4020on 02-13-2024 TROPONIN-I HS 17 pg/mL Normal 3.0-54.0 [facility] Comment on above: Order Comment: 'TROP ' Serial specimen #1, #2 or #3: 1 Result Comment: La aguilar Note: New Test Units and Gender Specific Reference Ranges. For more information see Policy Stat Procedure [place] High Sensitivity Troponin (TNIH) and attachments. Performed By: #### M 200.1000, L500.4050, L100.0100, L300.4310, L300.3900, L503.6005, L501.4020 ####[facility] [address] [place], [place], [address] Lactic Acidon 02-13-2024 Lactate [Moles/Vol] 8.7 mmol/L Invalid Interpretation Code 0.4-1.9 [facility] Comment on above: Order Comment: Y Result Comment: Crit ical Result(s) Called at: 17:38:31 02/13/2024 by: EVERETT. Results read back by Duong Performed By: #### M 200.1000, L500.4050, L100.0100, L300.4310, L300.3900, L503.6005, L501.4020 ####[facility] [address] [place], [place], [id number] Partial Thromboplast Timeon 02-13-2024 aPTT Coag (Bld) [Time] 22.4 s Low 24.1-36.2 [facility] Comment on above: Performed By: #### M 200.1000, L500.4050, L100.0100, L300.4310, L300.3900, L503.6005, L501.4020 ####[facility] [address] [place], [address] Protein Test strip Ql (U)Ord ered By: Nico Arce on 02-13-2024 Urine protein assay by test strip, semi-quantitative 500 mg/dl High Negative [facility] Prothrombin Time w/INRon INR Coag (PPP) [Relative time] 1.1 {INR} Normal [facility] Comment on above: Performed By: #### M 200.1000, L500.4050, L100.0100, L300.4310, L300.3900, L503.6005, L501.4020 ####[facility] [address] [place], [address] PT Coag (PPP) [Time] 14.0 s Normal 11.7-14.9 [facility] Comment on above: Performed By: #### M 200.1000, L500.4050, L100.0100, L300.4310, L300.3900, L503.6005, L501.4020 ####[facility] [address] [place], [address] Prothrombin timeOrdered By: Nico Arce on 02-13-2024 Prothrombin time 14.0 SECONDS 11.7-14.9 [facility] Specific gravity (U) [Rel de nsity]Ordered By: Nico Arce on 02-13-2024 Urine specific gravity measurement 1.010 1.002-1.030 [facility] Spine Cervical without Contr ason 02-13-2024 Spine Cervical without Contras Normal [facility] Squamous epithelial cells de tection in urine sediment by light microscopyOrdered By: Nico Arce on 02-13-2024 Squamous epithelial cells detection in urine sediment by light microscopy 0 SEEN /hpf [facility] Troponin IOrdered By: Julisa Arce on 02-13-2024 Troponin I 17 pg/mL 3.0-54.0 [facility] Urinalysis, Completeon 02-12 RBC 0-5 SEEN Normal 0-5 [facility] Comment on above: Order Comment: DAYAN CTOR TO SPECIFY Performed By: #### L 400.0001 ####[facility] [id number] [place], [address] WBC 0-5 SEEN Normal 0-5 [facility] Comment on above: Order Comment: DAYAN CTOR TO SPECIFY Performed By: #### L 400.0001 ####[facility] [id number] [place], [address] BACTERIA 0 SEEN Normal None Seen [facility] Comment on above: Order Comment: DAYAN CTOR TO SPECIFY Performed By: #### L 400.0001 ####[facility] [id number] [place], [address] EPI,SQUAMOUS 0 SEEN Normal 5-10 [facility] Comment on above: Order Comment: DAYAN CTOR TO SPECIFY Performed By: #### L 400.0001 ####[facility] [address] [place], [address] Mucus Ql (Urine sed) 0 SEEN Normal [facility] Comment on above: Order Comment: DAYAN CTOR TO SPECIFY Performed By: #### L 400.0001 ####[facility] [address] [place], [address] Urine blood detectionOrdered By: Nico Arce on 02-13-2024 Urine blood detection 25 /ul High Negative [facility] Urine cultureOrdered By: Talia Arce on 02-13-2024 Urine culture Enterococcus faecalis Abnormal [facility] Urine total bilirubin detect ion by test stripOrdered By: Nico Arce on 02-13-2024 Urine total bilirubin detection by test strip Negative Negative [facility] Urobilinogen Ql (U)Ordered B y: Nico Claude on 02-13-2024 Urine urobilinogen measurement Normal mg/dl Normal [facility] White blood cell countOrdere d By: Nico Claude on 02-13-2024 White blood cell count 0-5 SEEN /hpf 0-5 [facility] aPTT Coag (PPP) [Time]Ordere d By: Nico Arce on 02-13-2024 Activated partial thromboplastin time (aPTT) in platelet poor plasma by coagulation a 22.4 Seconds Low 24.1-36.2 [facility] pH (U)Ordered By: Nico bear on 02-13-2024 Urine pH 7.0 5.0 - 8.0 [facility] Gastroenterology Visit Repor ton 01-25-2024 Gastroenterology Visit Report Normal [facility] Comprehensive Metabolic Prof ilon 01-10-2024 ALB Normal 3.2-5.0 [facility] Comment on above: Result Comment: Canc elled via OM: Order cancelled - Patient discharged Performed By: #### L 500.4050 ####[facility] [address] [place], [address] ALK P Normal 45-117 [facility] Comment on above: Result Comment: Canc elled via OM: Order cancelled - Patient discharged Performed By: #### L 500.4050 ####[facility] [address] [place], [address] ALT Normal 13-56 [facility] Comment on above: Result Comment: Canc elled via OM: Order cancelled - Patient discharged Performed By: #### L 500.4050 ####[facility] [address] [place], [address] AST Normal 15-37 [facility] Comment on above: Result Comment: Canc elled via OM: Order cancelled - Patient discharged Performed By: #### L 500.4050 ####[facility] [address] [place], [address] BUN Normal 7-18 [facility] Comment on above: Result Comment: Canc elled via OM: Order cancelled - Patient discharged Performed By: #### L 500.4050 ####[facility] [address] [place], [address] BUN/CRE Normal 10-20 [facility] Comment on above: Result Comment: Canc elled via OM: Order cancelled - Patient discharged Performed By: #### L 500.4050 ####[facility] [address] [place], [address] CA,Total Normal 8.5-10.1 [facility] Comment on above: Result Comment: Canc elled via OM: Order cancelled - Patient discharged Performed By: #### L 500.4050 ####[facility] [address] [place], [address] CL Normal 98-107 [facility] Comment on above: Result Comment: Canc elled via OM: Order cancelled - Patient discharged Performed By: #### L 500.4050 ####[facility] [address] [place], [address] CO2 Normal 21.0-32.0 [facility] Comment on above: Result Comment: Canc elled via OM: Order cancelled - Patient discharged Performed By: #### L 500.4050 ####[facility] [address] [place], [address] CREAT,SERUM Normal 0.55-1.02 [facility] Comment on above: Result Comment: Canc elled via OM: Order cancelled - Patient discharged Performed By: #### L 500.4050 ####[facility] [address] [place], [address] EST GFR Normal >60 [facility] Comment on above: Result Comment: Canc elled via OM: Order cancelled - Patient discharged Performed By: #### L 500.4050 ####[facility] [address] [place], [address] EST GFR - AA Normal >60 [facility] Comment on above: Result Comment: Canc elled via OM: Order cancelled - Patient discharged Performed By: #### L 500.4050 ####[facility] [address] [place], [address] GAP Normal 5-15 [facility] Comment on above: Result Comment: Canc elled via OM: Order cancelled - Patient discharged Performed By: #### L 500.4050 ####[facility] [address] [place], [address] GLU Normal 74-106 [facility] Comment on above: Result Comment: Canc elled via OM: Order cancelled - Patient discharged Performed By: #### L 500.4050 ####[facility] [address] [place], [address] Potassium Normal 3.5-5.1 [facility] Comment on above: Result Comment: Canc elled via OM: Order cancelled - Patient discharged Performed By: #### L 500.4050 ####[facility] [address] [place], [address] T BILI Normal 0.20-1.00 [facility] Comment on above: Result Comment: Canc elled via OM: Order cancelled - Patient discharged Performed By: #### L 500.4050 ####[facility] [address] [place], [address] T PROT Normal 6.4-8.2 [facility] Comment on above: Result Comment: Canc elled via OM: Order cancelled - Patient discharged Performed By: #### L 500.4050 ####[facility] [address] [place], [address] Comprehensive Metabolic Profil Normal 136-145 [facility] Comment on above: Result Comment: Canc elled via OM: Order cancelled - Patient discharged Performed By: #### L 500.4050 ####[facility] [address] [place], [address] Comprehensive Metabolic Prof ilon 01-09-2024 ALB Normal 3.2-5.0 [facility] Comment on above: Result Comment: Canc elled via OM: Order cancelled - Patient discharged Performed By: #### L 500.4050 ####[facility] [address] [place], [address] ALK P Normal 45-117 [facility] Comment on above: Result Comment: Canc elled via OM: Order cancelled - Patient discharged Performed By: #### L 500.4050 ####[facility] [address] [place], [address] ALT Normal 13-56 [facility] Comment on above: Result Comment: Canc elled via OM: Order cancelled - Patient discharged Performed By: #### L 500.4050 ####[facility] [address] [place], [address] AST Normal 15-37 [facility] Comment on above: Result Comment: Canc elled via OM: Order cancelled - Patient discharged Performed By: #### L 500.4050 ####[facility] [address] [place], [address] BUN Normal 7-18 [facility] Comment on above: Result Comment: Canc elled via OM: Order cancelled - Patient discharged Performed By: #### L 500.4050 ####[facility] [address] [place], [address] BUN/CRE Normal 10-20 [facility] Comment on above: Result Comment: Canc elled via OM: Order cancelled - Patient discharged Performed By: #### L 500.4050 ####[facility] [address] [place], [address] CA,Total Normal 8.5-10.1 [facility] Comment on above: Result Comment: Canc elled via OM: Order cancelled - Patient discharged Performed By: #### L 500.4050 ####[facility] [address] [place], [address] CL Normal 98-107 [facility] Comment on above: Result Comment: Canc elled via OM: Order cancelled - Patient discharged Performed By: #### L 500.4050 ####[facility] [address] [place], [address] CO2 Normal 21.0-32.0 [facility] Comment on above: Result Comment: Canc elled via OM: Order cancelled - Patient discharged Performed By: #### L 500.4050 ####[facility] [address] [place], [address] CREAT,SERUM Normal 0.55-1.02 [facility] Comment on above: Result Comment: Canc elled via OM: Order cancelled - Patient discharged Performed By: #### L 500.4050 ####[facility] [address] [place], [address] EST GFR Normal >60 [facility] Comment on above: Result Comment: Canc elled via OM: Order cancelled - Patient discharged Performed By: #### L 500.4050 ####[facility] [address] [place], [address] EST GFR - AA Normal >60 [facility] Comment on above: Result Comment: Canc elled via OM: Order cancelled - Patient discharged Performed By: #### L 500.4050 ####[facility] [address] [place], [address] GAP Normal 5-15 [facility] Comment on above: Result Comment: Canc elled via OM: Order cancelled - Patient discharged Performed By: #### L 500.4050 ####[facility] [address] [place], [address] GLU Normal 74-106 [facility] Comment on above: Result Comment: Canc elled via OM: Order cancelled - Patient discharged Performed By: #### L 500.4050 ####[facility] [address] [place], [address] Potassium Normal 3.5-5.1 [facility] Comment on above: Result Comment: Canc elled via OM: Order cancelled - Patient discharged Performed By: #### L 500.4050 ####[facility] [address] [place], [address] T BILI Normal 0.20-1.00 [facility] Comment on above: Result Comment: Canc elled via OM: Order cancelled - Patient discharged Performed By: #### L 500.4050 ####[facility] [address] [place], [address] T PROT Normal 6.4-8.2 [facility] Comment on above: Result Comment: Canc elled via OM: Order cancelled - Patient discharged Performed By: #### L 500.4050 ####[facility] [address] [place], [address] Comprehensive Metabolic Profil Normal 136-145 [facility] Comment on above: Result Comment: Canc elled via OM: Order cancelled - Patient discharged Performed By: #### L 500.4050 ####[facility] [address] [place], [address] Comprehensive Metabolic Prof ilon 01-08-2024 ALB Normal 3.2-5.0 [facility] Comment on above: Result Comment: Canc elled via OM: Order cancelled - Patient discharged Performed By: #### L 500.4050 ####[facility] [address] [place], [address] ALK P Normal 45-117 [facility] Comment on above: Result Comment: Canc elled via OM: Order cancelled - Patient discharged Performed By: #### L 500.4050 ####[facility] [address] [place], [address] ALT Normal 13-56 [facility] Comment on above: Result Comment: Canc elled via OM: Order cancelled - Patient discharged Performed By: #### L 500.4050 ####[facility] [address] [place], [address] AST Normal 15-37 [facility] Comment on above: Result Comment: Canc elled via OM: Order cancelled - Patient discharged Performed By: #### L 500.4050 ####[facility] [address] [place], [address] BUN Normal 7-18 [facility] Comment on above: Result Comment: Canc elled via OM: Order cancelled - Patient discharged Performed By: #### L 500.4050 ####[facility] [address] [place], [address] BUN/CRE Normal 10-20 [facility] Comment on above: Result Comment: Canc elled via OM: Order cancelled - Patient discharged Performed By: #### L 500.4050 ####[facility] [address] [place], [address] CA,Total Normal 8.5-10.1 [facility] Comment on above: Result Comment: Canc elled via OM: Order cancelled - Patient discharged Performed By: #### L 500.4050 ####[facility] [address] [place], [address] CL Normal 98-107 [facility] Comment on above: Result Comment: Canc elled via OM: Order cancelled - Patient discharged Performed By: #### L 500.4050 ####[facility] [address] [place], [address] CO2 Normal 21.0-32.0 [facility] Comment on above: Result Comment: Canc elled via OM: Order cancelled - Patient discharged Performed By: #### L 500.4050 ####[facility] [address] [place], [address] CREAT,SERUM Normal 0.55-1.02 [facility] Comment on above: Result Comment: Canc elled via OM: Order cancelled - Patient discharged Performed By: #### L 500.4050 ####[facility] [address] [place], [address] EST GFR Normal >60 [facility] Comment on above: Result Comment: Canc elled via OM: Order cancelled - Patient discharged Performed By: #### L 500.4050 ####[facility] [address] [place], [address] EST GFR - AA Normal >60 [facility] Comment on above: Result Comment: Canc elled via OM: Order cancelled - Patient discharged Performed By: #### L 500.4050 ####[facility] [address] [place], [address] GAP Normal 5-15 [facility] Comment on above: Result Comment: Canc elled via OM: Order cancelled - Patient discharged Performed By: #### L 500.4050 ####[facility] [address] [place], [address] GLU Normal 74-106 [facility] Comment on above: Result Comment: Canc elled via OM: Order cancelled - Patient discharged Performed By: #### L 500.4050 ####[facility] [address] [place], [address] Potassium Normal 3.5-5.1 [facility] Comment on above: Result Comment: Canc elled via OM: Order cancelled - Patient discharged Performed By: #### L 500.4050 ####[facility] [address] [place], [address] T BILI Normal 0.20-1.00 [facility] Comment on above: Result Comment: Canc elled via OM: Order cancelled - Patient discharged Performed By: #### L 500.4050 ####[facility] [address] [place], [address] T PROT Normal 6.4-8.2 [facility] Comment on above: Result Comment: Canc elled via OM: Order cancelled - Patient discharged Performed By: #### L 500.4050 ####[facility] [address] [place], [address] Comprehensive Metabolic Profil Normal 136-145 [facility] Comment on above: Result Comment: Canc elled via OM: Order cancelled - Patient discharged Performed By: #### L 500.4050 ####[facility] [address] [place], [address] CBC W/Diff, Automatedon 11-2 -2023 Absolute Neut Normal 2.0-7.7 [facility] Comment on above: Result Comment: Canc elled via OM: Order cancelled - Patient discharged Performed By: #### L 500.2500, L100.0100 ####[facility] [address] [place], [address] HCT Normal 37-47 [facility] Comment on above: Result Comment: Canc elled via OM: Order cancelled - Patient discharged Performed By: #### L 500.2500, L100.0100 ####[facility] [address] [place], [address] HGB Normal 12.0-15.0 [facility] Comment on above: Result Comment: Canc elled via OM: Order cancelled - Patient discharged Performed By: #### L 500.2500, L100.0100 ####[facility] [address] [place], [address] MCH Normal 27.0-32.0 [facility] Comment on above: Result Comment: Canc elled via OM: Order cancelled - Patient discharged Performed By: #### L 500.2500, L100.0100 ####[facility] [address] [place], [address] MCHC Normal 32-36 [facility] Comment on above: Result Comment: Canc elled via OM: Order cancelled - Patient discharged Performed By: #### L 500.2500, L100.0100 ####[facility] [address] [place], [address] MCV Normal 81-99 [facility] Comment on above: Result Comment: Canc elled via OM: Order cancelled - Patient discharged Performed By: #### L 500.2500, L100.0100 ####[facility] [address] [place], [address] NEUT% Normal 47-70 [facility] Comment on above: Result Comment: Canc elled via OM: Order cancelled - Patient discharged Performed By: #### L 500.2500, L100.0100 ####[facility] [address] [place], [address] PLT Normal 150-450 [facility] Comment on above: Result Comment: Canc elled via OM: Order cancelled - Patient discharged Performed By: #### L 500.2500, L100.0100 ####[facility] [address] [place], [address] RBC Normal 4.2-5.4 [facility] Comment on above: Result Comment: Canc elled via OM: Order cancelled - Patient discharged Performed By: #### L 500.2500, L100.0100 ####[facility] [address] [place], [address] RDW CV Normal 11.6-14.6 [facility] Comment on above: Result Comment: Canc elled via OM: Order cancelled - Patient discharged Performed By: #### L 500.2500, L100.0100 ####[facility] [address] [place], [address] RDW SD Normal 35.1-43.9 [facility] Comment on above: Result Comment: Canc elled via OM: Order cancelled - Patient discharged Performed By: #### L 500.2500, L100.0100 ####[facility] [address] [place], [address] WBC Normal 4.4-11.0 [facility] Comment on above: Result Comment: Canc elled via OM: Order cancelled - Patient discharged Performed By: #### L 500.2500, L100.0100 ####[facility] [address] [place], [address] Comprehensive Metabolic Prof ilon 01-07-2024 ALB Normal 3.2-5.0 [facility] Comment on above: Result Comment: Canc elled via OM: Order cancelled - Patient discharged Performed By: #### L 500.4050 ####[facility] [address] [place], [address] ALK P Normal 45-117 [facility] Comment on above: Result Comment: Canc elled via OM: Order cancelled - Patient discharged Performed By: #### L 500.4050 ####[facility] [address] [place], [address] ALT Normal 13-56 [facility] Comment on above: Result Comment: Canc elled via OM: Order cancelled - Patient discharged Performed By: #### L 500.4050 ####[facility] [address] [place], [address] AST Normal 15-37 [facility] Comment on above: Result Comment: Canc elled via OM: Order cancelled - Patient discharged Performed By: #### L 500.4050 ####[facility] [address] [place], [address] BUN Normal 7-18 [facility] Comment on above: Result Comment: Canc elled via OM: Order cancelled - Patient discharged Performed By: #### L 500.4050 ####[facility] [address] [place], [address] Result Comment: Canc elled via OM: MD Ordered Performed By: #### L 500.2500, L100.0100 ####[facility] [address] [place], [address] BUN/CRE Normal 10-20 [facility] Comment on above: Result Comment: Canc elled via OM: Order cancelled - Patient discharged Performed By: #### L 500.4050 ####[facility] [address] [place], [address] Result Comment: Canc elled via OM: MD Ordered Performed By: #### L 500.2500, L100.0100 ####[facility] [address] [place], [address] CA,Total Normal 8.5-10.1 [facility] Comment on above: Result Comment: Canc elled via OM: Order cancelled - Patient discharged Performed By: #### L 500.4050 ####[facility] [address] [place], [address] Result Comment: Canc elled via OM: MD Ordered Performed By: #### L 500.2500, L100.0100 ####[facility] [address] [place], [address] CL Normal 98-107 [facility] Comment on above: Result Comment: Canc elled via OM: Order cancelled - Patient discharged Performed By: #### L 500.4050 ####[facility] [address] [place], [address] Result Comment: Canc elled via OM: MD Ordered Performed By: #### L 500.2500, L100.0100 ####[facility] [address] [place], [address] CO2 Normal 21.0-32.0 [facility] Comment on above: Result Comment: Canc elled via OM: Order cancelled - Patient discharged Performed By: #### L 500.4050 ####[facility] [address] [place], [address] Result Comment: Canc elled via OM: MD Ordered Performed By: #### L 500.2500, L100.0100 ####[facility] [address] [place], [address] CREAT,SERUM Normal 0.55-1.02 [facility] Comment on above: Result Comment: Canc elled via OM: Order cancelled - Patient discharged Performed By: #### L 500.4050 ####[facility] [address] [place], [address] Result Comment: Canc elled via OM: MD Ordered Performed By: #### L 500.2500, L100.0100 ####[facility] [address] [place], [address] EST GFR Normal >60 [facility] Comment on above: Result Comment: Canc elled via OM: Order cancelled - Patient discharged Performed By: #### L 500.4050 ####[facility] [address] [place], [address] Result Comment: Canc elled via OM: MD Ordered Performed By: #### L 500.2500, L100.0100 ####[facility] [address] [place], [address] EST GFR - AA Normal >60 [facility] Comment on above: Result Comment: Canc elled via OM: Order cancelled - Patient discharged Performed By: #### L 500.4050 ####[facility] [address] [place], [address] Result Comment: Canc elled via OM: MD Ordered Performed By: #### L 500.2500, L100.0100 ####[facility] [address] [place], [address] GAP Normal 5-15 [facility] Comment on above: Result Comment: Canc elled via OM: Order cancelled - Patient discharged Performed By: #### L 500.4050 ####[facility] [address] [place], [address] Result Comment: Canc elled via OM: MD Ordered Performed By: #### L 500.2500, L100.0100 ####[facility] [address] [place], [address] GLU Normal 74-106 [facility] Comment on above: Result Comment: Canc elled via OM: Order cancelled - Patient discharged Performed By: #### L 500.4050 ####[facility] [address] [place], [address] Result Comment: Canc elled via OM: MD Ordered Performed By: #### L 500.2500, L100.0100 ####[facility] [address] [place], [address] Potassium Normal 3.5-5.1 [facility] Comment on above: Result Comment: Canc elled via OM: Order cancelled - Patient discharged Performed By: #### L 500.4050 ####[facility] [address] [place], [address] Result Comment: Canc elled via OM: MD Ordered Performed By: #### L 500.2500, L100.0100 ####[facility] [address] [place], [address] T BILI Normal 0.20-1.00 [facility] Comment on above: Result Comment: Canc elled via OM: Order cancelled - Patient discharged Performed By: #### L 500.4050 ####[facility] [address] [place], [address] T PROT Normal 6.4-8.2 [facility] [facility] Comment on above: Result Comment: Canc elled via OM: Order cancelled - Patient discharged Performed By: #### L 500.4050 ####[facility] [address] [place], [address] Comprehensive Metabolic Profil Normal 136-145 [facility] Comment on above: Result Comment: Canc elled via OM: Order cancelled - Patient discharged Performed By: #### L 500.4050 ####[facility] [address] [place], [address] Result Comment: Canc elled via OM: MD Ordered Performed By: #### L 500.2500, L100.0100 ####[facility] [address] [place], [address] CBC W/Diff, Automatedon 11-2 Absolute Neut Normal 2.0-7.7 [facility] Comment on above: Result Comment: Canc elled via OM: Order cancelled - Patient discharged Performed By: #### L 500.2500, L100.0100 ####[facility] [address] [place], [address] HCT Normal 37-47 [facility] Comment on above: Result Comment: Canc elled via OM: Order cancelled - Patient discharged Performed By: #### L 500.2500, L100.0100 ####[facility] [address] [place], [address] HGB Normal 12.0-15.0 [facility] Comment on above: Result Comment: Canc elled via OM: Order cancelled - Patient discharged Performed By: #### L 500.2500, L100.0100 ####[facility] [address] [place], [address] MCH Normal 27.0-32.0 [facility] Comment on above: Result Comment: Canc elled via OM: Order cancelled - Patient discharged Performed By: #### L 500.2500, L100.0100 ####[facility] [address] [place], [address] MCHC Normal 32-36 [facility] Comment on above: Result Comment: Canc elled via OM: Order cancelled - Patient discharged Performed By: #### L 500.2500, L100.0100 ####[facility] [address] [place], [address] MCV Normal 81-99 [facility] Comment on above: Result Comment: Canc elled via OM: Order cancelled - Patient discharged Performed By: #### L 500.2500, L100.0100 ####[facility] [address] [place], [address] NEUT% Normal 47-70 [facility] Comment on above: Result Comment: Canc elled via OM: Order cancelled - Patient discharged Performed By: #### L 500.2500, L100.0100 ####[facility] [address] [place], [address] PLT Normal 150-450 [facility] Comment on above: Result Comment: Canc elled via OM: Order cancelled - Patient discharged Performed By: #### L 500.2500, L100.0100 ####[facility] [address] [place], [address] RBC Normal 4.2-5.4 [facility] Comment on above: Result Comment: Canc elled via OM: Order cancelled - Patient discharged Performed By: #### L 500.2500, L100.0100 ####[facility] [address] [place], [address] RDW CV Normal 11.6-14.6 [facility] Comment on above: Result Comment: Canc elled via OM: Order cancelled - Patient discharged Performed By: #### L 500.2500, L100.0100 ####[facility] [address] [place], [address] RDW SD Normal 35.1-43.9 [facility] Comment on above: Result Comment: Canc elled via OM: Order cancelled - Patient discharged Performed By: #### L 500.2500, L100.0100 ####[facility] [address] [place], [address] WBC Normal 4.4-11.0 [facility] Comment on above: Result Comment: Canc elled via OM: Order cancelled - Patient discharged Performed By: #### L 500.2500, L100.0100 ####[facility] [address] [place], [address] Comprehensive Metabolic Prof ilon 01-06-2024 ALB Normal 3.2-5.0 [facility] Comment on above: Result Comment: Canc elled via OM: Order cancelled - Patient discharged Performed By: #### L 500.4050 ####[facility] [address] [place], [address] ALK P Normal 45-117 [facility] Comment on above: Result Comment: Canc elled via OM: Order cancelled - Patient discharged Performed By: #### L 500.4050 ####[facility] [address] [place], [address] ALT Normal 13-56 [facility] Comment on above: Result Comment: Canc elled via OM: Order cancelled - Patient discharged Performed By: #### L 500.4050 ####[facility] [address] [place], [address] AST Normal 15-37 [facility] Comment on above: Result Comment: Canc elled via OM: Order cancelled - Patient discharged Performed By: #### L 500.4050 ####[facility] [address] [place], [address] BUN Normal 7-18 [facility] Comment on above: Result Comment: Canc elled via OM: Order cancelled - Patient discharged Performed By: #### L 500.4050 ####[facility] [address] [place], [address] Result Comment: Canc elled via OM: MD Ordered Performed By: #### L 500.2500, L100.0100 ####[facility] [address] [place], [address] BUN/CRE Normal 10-20 [facility] Comment on above: Result Comment: Canc elled via OM: Order cancelled - Patient discharged Performed By: #### L 500.4050 ####[facility] [address] [place], [address] Result Comment: Canc elled via OM: MD Ordered Performed By: #### L 500.2500, L100.0100 ####[facility] [address] [place], [address] CA,Total Normal 8.5-10.1 [facility] Comment on above: Result Comment: Canc elled via OM: Order cancelled - Patient discharged Performed By: #### L 500.4050 ####[facility] [address] [place], [address] Result Comment: Canc elled via OM: MD Ordered Performed By: #### L 500.2500, L100.0100 ####[facility] [address] [place], [address] CL Normal 98-107 [facility] Comment on above: Result Comment: Canc elled via OM: Order cancelled - Patient discharged Performed By: #### L 500.4050 ####[facility] [address] [place], [address] Result Comment: Canc elled via OM: MD Ordered Performed By: #### L 500.2500, L100.0100 ####[facility] [address] [place], [address] CO2 Normal 21.0-32.0 [facility] Comment on above: Result Comment: Canc elled via OM: Order cancelled - Patient discharged Performed By: #### L 500.4050 ####[facility] [address] [place], [address] Result Comment: Canc elled via OM: MD Ordered Performed By: #### L 500.2500, L100.0100 ####[facility] [address] [place], [address] CREAT,SERUM Normal 0.55-1.02 [facility] Comment on above: Result Comment: Canc elled via OM: Order cancelled - Patient discharged Performed By: #### L 500.4050 ####[facility] [address] [place], [address] Result Comment: Canc elled via OM: MD Ordered Performed By: #### L 500.2500, L100.0100 ####[facility] [address] [place], [address] EST GFR Normal >60 [facility] Comment on above: Result Comment: Canc elled via OM: Order cancelled - Patient discharged Performed By: #### L 500.4050 ####[facility] [address] [place], [address] Result Comment: Canc elled via OM: MD Ordered Performed By: #### L 500.2500, L100.0100 ####[facility] [address] [place], [address] EST GFR - AA Normal >60 [facility] Comment on above: Result Comment: Canc elled via OM: Order cancelled - Patient discharged Performed By: #### L 500.4050 ####[facility] [address] [place], [address] Result Comment: Canc elled via OM: MD Ordered Performed By: #### L 500.2500, L100.0100 ####[facility] [address] [place], [address] GAP Normal 5-15 [facility] Comment on above: Result Comment: Canc elled via OM: Order cancelled - Patient discharged Performed By: #### L 500.4050 ####[facility] [address] [place], [address] Result Comment: Canc elled via OM: MD Ordered Performed By: #### L 500.2500, L100.0100 ####[facility] [address] [place], [address] GLU Normal 74-106 [facility] Comment on above: Result Comment: Canc elled via OM: Order cancelled - Patient discharged Performed By: #### L 500.4050 ####[facility] [address] [place], [address] Result Comment: Canc elled via OM: MD Ordered Performed By: #### L 500.2500, L100.0100 ####[facility] [address] [place], [address] Potassium Normal 3.5-5.1 [facility] Comment on above: Result Comment: Canc elled via OM: Order cancelled - Patient discharged Performed By: #### L 500.4050 ####[facility] [address] [place], [address] Result Comment: Canc elled via OM: MD Ordered Performed By: #### L 500.2500, L100.0100 ####[facility] [address] [place], [address] T BILI Normal 0.20-1.00 [facility] Comment on above: Result Comment: Canc elled via OM: Order cancelled - Patient discharged Performed By: #### L 500.4050 ####[facility] [address] [place], [address] T PROT Normal 6.4-8.2 [facility] Comment on above: Result Comment: Canc elled via OM: Order cancelled - Patient discharged Performed By: #### L 500.4050 ####[facility] [address] [place], [address] Comprehensive Metabolic Profil Normal 136-145 [facility] Comment on above: Result Comment: Canc elled via OM: Order cancelled - Patient discharged Performed By: #### L 500.4050 ####[facility] [address] [place], [address] Result Comment: Canc elled via OM: MD Ordered Performed By: #### L 500.2500, L100.0100 ####[facility] [address] [place], [address] ALP [Catalytic activity/Vol] Ordered By: Zahra Palacio on 01-05-2024 Serum or plasma alkaline phosphatase measurement 65 U/L 45-117 [facility] ALT [Catalytic activity/Vol] Ordered By: Zahra Palacio on 01-05-2024 Serum or plasma alanine aminotransferase (ALT) measurement 19 U/L 13-56 [facility] Absolute neutrophil countOrd ered By: Zahra Palacio on 01-05-2024 Absolute neutrophil count 5.0 X10^3/uL 2.0-7.7 [facility] Albumin [Mass/Vol]Ordered By : Zahra Palacio on 01-05-2024 Serum or plasma albumin measurement (mass/volume) 3.1 g/dL Low 3.2-5.0 [facility] Albumin to globulin ratioOrd ered By: Zahra Palacio on 01-05-2024 Albumin to globulin ratio 1.0 RATIO 0.9-2.4 [facility] Basic Metabolic Profile (BMP )on 01-05-2024 BUN Normal 7-18 [facility] Comment on above: Result Comment: Canc elled via OM: MD Ordered Performed By: #### L 500.2500, L100.0100 ####[facility] [address] [place], [address] BUN/CRE Normal 10-20 [facility] Comment on above: Result Comment: Canc elled via OM: MD Ordered Performed By: #### L 500.2500, L100.0100 ####[facility] [address] [place], [address] CA,Total Normal 8.5-10.1 [facility] Comment on above: Result Comment: Canc elled via OM: MD Ordered Performed By: #### L 500.2500, L100.0100 ####[facility] [address] [place], [address] CL Normal 98-107 [facility] Comment on above: Result Comment: Canc elled via OM: MD Ordered Performed By: #### L 500.2500, L100.0100 ####[facility] [address] [place], [address] CO2 Normal 21.0-32.0 [facility] Comment on above: Result Comment: Canc elled via OM: MD Ordered Performed By: #### L 500.2500, L100.0100 ####[facility] [address] [place], [address] CREAT,SERUM Normal 0.55-1.02 [facility] Comment on above: Result Comment: Canc elled via OM: MD Ordered Performed By: #### L 500.2500, L100.0100 ####[facility] [address] [place], [address] EST GFR Normal >60 [facility] Comment on above: Result Comment: Canc elled via OM: MD Ordered Performed By: #### L 500.2500, L100.0100 ####[facility] [address] [place], [address] EST GFR - AA Normal >60 [facility] Comment on above: Result Comment: Canc elled via OM: MD Ordered Performed By: #### L 500.2500, L100.0100 ####[facility] [address] [place], [address] GAP Normal 5-15 [facility] Comment on above: Result Comment: Canc elled via OM: MD Ordered Performed By: #### L 500.2500, L100.0100 ####[facility] [address] [place], [address] GLU Normal 74-106 [facility] Comment on above: Result Comment: Canc elled via OM: MD Ordered Performed By: #### L 500.2500, L100.0100 ####[facility] [address] [place], [address] Potassium Normal 3.5-5.1 [facility] Comment on above: Result Comment: Canc elled via OM: MD Ordered Performed By: #### L 500.2500, L100.0100 ####[facility] [address] [place], [address] Basic Metabolic Profile (BMP) Normal 136-145 [facility] Comment on above: Result Comment: Canc elled via OM: MD Ordered Performed By: #### L 500.2500, L100.0100 ####[facility] [address] [place], [address] Basophil percentageOrdered B y: Zahra Palacio on 01-05-2024 Basophil percentage 0.1 % 0-1 [facility] Bedside Glucoseon 01-05-2024 FINGERSTICK GLU 183 mg/dL High 74-106 [facility] Comment on above: Result Comment: GERALDO GEMENT OF PATIENT CARE PER NURSING PROTOCOL Performed By: #### L 501.080 ####[facility] [address] [place], [address] FINGERSTICK GLU 153 mg/dL High 74-106 [facility] Comment on above: Result Comment: GERALDO GEMENT OF PATIENT CARE PER NURSING PROTOCOL Performed By: #### L 501.080 ####[facility] [address] [place], [address] FINGERSTICK GLU 169 mg/dL High 74-106 [facility] Comment on above: Result Comment: GERALDO GEMENT OF PATIENT CARE PER NURSING PROTOCOL Performed By: #### L 501.080 ####[facility] [address] [place], [address] Bilirubin, totalOrdered By: Zahra Palacio on 01-05-2024 Bilirubin, total 0.60 mg/dL 0.20-1.00 [facility] Blood urea nitrogen (BUN)/cr eatinine ratioOrdered By: Zahra Palacio on 01-05-2024 Blood urea nitrogen (BUN)/creatinine ratio 17.0 RATIO 10-20 [facility] CBC W/Diff, Automatedon 12-14 Absolute Lymph 1.78 X10 3/uL Normal 0.83-4.51 [facility] Comment on above: Performed By: #### L 500.2500, L100.0100 ####[facility] [address] [place], [address] Absolute Neut 5.0 X10 3/uL Normal 2.0-7.7 [facility] Comment on above: Performed By: #### L 500.2500, L100.0100 ####[facility] [address] [place], [address] Basophils/100 WBC (Bld) 0.1 % Normal 0-1 [facility] Comment on above: Performed By: #### L 500.2500, L100.0100 ####[facility] [address] [place], [address] Eosinophils/100 WBC (Bld) 3.1 % Normal 0-5 [facility] Comment on above: Performed By: #### L 500.2500, L100.0100 ####[facility] [address] [place], [address] Erythrocyte distribution width (RBC) [Ratio] 13.2 % Normal 11.6-14.6 [facility] Comment on above: Performed By: #### L 500.2500, L100.0100 ####[facility] [address] [place], [address] Hematocrit (Bld) [Volume fraction] 35.0 % Low 37-47 [facility] Comment on above: Performed By: #### L 500.2500, L100.0100 ####[facility] [address] [place], [address] Hemoglobin (Bld) [Mass/Vol] 11.1 g/dL Low 12.0-15.0 [facility] Comment on above: Performed By: #### L 500.2500, L100.0100 ####[facility] [address] [place], [address] IG% 0.400 Normal 0.0-0.9 [facility] Comment on above: Result Comment: IG% - Immature Granulocytes (promyelocytes, myelocytes andmetamyelocytes) > 1% indicates that a LEFT SHIFT is Present. Performed By: #### L 500.2500, L100.0100 ####[facility] [address] [place], [address] Lymphocytes/100 WBC (Bld) 23.3 % Normal 19-41 [facility] Comment on above: Performed By: #### L 500.2500, L100.0100 ####[facility] [address] [place], [address] MCH (RBC) [Entitic mass] 29.8 pg Normal 27.0-32.0 [facility] Comment on above: Performed By: #### L 500.2500, L100.0100 ####[facility] [address] [place], [address] MCHC (RBC) [Mass/Vol] 31.7 g/dL Low 32-36 [facility] Comment on above: Performed By: #### L 500.2500, L100.0100 ####[facility] [address] [place], [address] MCV (RBC) [Entitic vol] 93.8 fL Normal 81-99 [facility] Comment on above: Performed By: #### L 500.2500, L100.0100 ####[facility] [address] [place], [address] Monocytes/100 WBC (Bld) 6.9 % Normal 0-10 [facility] Comment on above: Performed By: #### L 500.2500, L100.0100 ####[facility] [address] [place], [address] Neutrophils/100 WBC (Bld) 66.2 % Normal 47-70 [facility] Comment on above: Performed By: #### L 500.2500, L100.0100 ####[facility] [address] [place], [address] Nucleated RBC (Bld) [#/Vol] 0 10*3/uL Normal 0-5 [facility] Comment on above: Performed By: #### L 500.2500, L100.0100 ####[facility] [address] [place], [address] Platelet mean volume (Bld) [Entitic vol] 10.8 fL Normal 6.2-12.0 [facility] Comment on above: Performed By: #### L 500.2500, L100.0100 ####[facility] [address] [place], [address] Platelets (Bld) [#/Vol] 219 10*3/uL Normal 150-450 [facility] Comment on above: Performed By: #### L 500.2500, L100.0100 ####[facility] [address] [place], [address] RBC (Bld) [#/Vol] 3.73 10*6/uL Low 4.2-5.4 [facility] Comment on above: Performed By: #### L 500.2500, L100.0100 ####[facility] [address] [place], [address] RDW SD 44.8 fl High 35.1-43.9 [facility] Comment on above: Performed By: #### L 500.2500, L100.0100 ####[facility] [address] [place], [address] WBC (Bld) [#/Vol] 7.6 10*3/uL Normal 4.4-11.0 [facility] Comment on above: Performed By: #### L 500.2500, L100.0100 ####[facility] [address] [place], [address] Calcium [Mass/Vol]Ordered By : Zahra Palacio on 01-05-2024 Serum or plasma calcium measurement (mass/volume) 8.5 mg/dL 8.5-10.1 [facility] Carbon dioxide measurementOr dered By: Zahra Palacio on 01-05-2024 Carbon dioxide measurement 27.0 mmol/L 21.0-32.0 [facility] Chloride measurementOrdered By: Zahra Palacio on 01-05-2024 Chloride measurement 108 mmol/L High 98-107 [facility] Comprehensive Metabolic Prof ilon 01-05-2024 Albumin [Mass/Vol] 3.1 g/dL Low 3.2-5.0 [facility] Comment on above: Performed By: #### L 500.4050 ####[facility] [address] [place], [address] Albumin/Globulin [Mass ratio] 1.0 {ratio} Normal 0.9-2.4 [facility] Comment on above: Performed By: #### L 500.4050 ####[facility] [address] [place], [address] ALK P 65 U/L Normal 45-117 [facility] Comment on above: Performed By: #### L 500.4050 ####[facility] [address] [place], [address] ALT [Catalytic activity/Vol] 19 U/L Normal 13-56 [facility] Comment on above: Performed By: #### L 500.4050 ####[facility] [address] [place], [address] AST [Catalytic activity/Vol] 14 U/L Low 15-37 [facility] Comment on above: Performed By: #### L 500.4050 ####[facility] [address] [place], [address] Bilirubin [Mass/Vol] 0.60 mg/dL Normal 0.20-1.00 [facility] Comment on above: Result Comment: For patients on eltrombopag therapy, use of [employer]ension [place] TBIL is not recommended. Performed By: #### L 500.4050 ####[facility] [address] [place], [address] BUN/CRE 17.0 RATIO Normal 10-20 [facility] Comment on above: Performed By: #### L 500.4050 ####[facility] [address] [place], [address] CA,Total 8.5 mg/dL Normal 8.5-10.1 [facility] Comment on above: Performed By: #### L 500.4050 ####[facility] [address] [place], [address] Chloride [Moles/Vol] 108 mmol/L High 98-107 [facility] Comment on above: Performed By: #### L 500.4050 ####[facility] [address] [place], [address] CO2 [Moles/Vol] 27.0 mmol/L Normal 21.0-32.0 [facility] Comment on above: Performed By: #### L 500.4050 ####[facility] [address] [place], [address] Creatinine [Mass/Vol] 0.82 mg/dL Normal 0.55-1.02 [facility] Comment on above: Result Comment: The validity of the calculated GFR GFRAA in patients over70 years has not been determined. Clinical correlation isessential. Performed By: #### L 500.4050 ####[facility] [address] [place], [address] ECRCL 64.01 ml/min Normal [facility] Comment on above: Performed By: #### L 500.4050 ####[facility] [address] [place], [address] EST GFR - AA 88 mL/min Normal >60 [facility] Comment on above: Result Comment: Afri can Mac[place] GFR Calc Performed By: #### L 500.4050 ####[facility] [address] [place], [address] GAP 6 Normal 5-15 [facility] Comment on above: Performed By: #### L 500.4050 ####[facility] [address] [place], [address] GFR/1.73 sq M.predicted among non-blacks MDRD (S/P/Bld) [Vol rate/Area] 73 mL/min/{1.73_m2} Normal >60 [facility] Comment on above: Result Comment: Non- GFR Calc Performed By: #### L 500.4050 ####[facility] [address] [place], [address] Globulin (S) [Mass/Vol] 3.0 g/dL Normal 2.2-4.2 [facility] Comment on above: Performed By: #### L 500.4050 ####[facility] [address] [place], [address] Glucose [Mass/Vol] 199 mg/dL High 74-106 [facility] Comment on above: Result Comment: Fast ing Glucose result greater than or equal to 126 mg/dLsuggests DIABETES MELLITUS per A.D.A. criteria. Performed By: #### L 500.4050 ####[facility] [address] [place], [address] Potassium [Moles/Vol] 3.4 mmol/L Low 3.5-5.1 [facility] Comment on above: Performed By: #### L 500.4050 ####[facility] [address] [place], [address] Sodium [Moles/Vol] 141 mmol/L Normal 136-145 [facility] Comment on above: Performed By: #### L 500.4050 ####[facility] [address] [place], [address] T PROT 6.1 g/dL Low 6.4-8.2 [facility] Comment on above: Performed By: #### L 500.4050 ####[facility] [address] [place], [address] Urea nitrogen [Mass/Vol] 14 mg/dL Normal 7-18 [facility] Comment on above: Performed By: #### L 500.4050 ####[facility] [address] [place], [place], [address] Creatinine [Mass/Vol]Ordered By: Zahra Palacio on 01-05-2024 Serum or plasma creatinine measurement (mass/volume) 0.82 mg/dL 0.55-1.02 [facility] Culture, Blood (WB)on 2023 CUB No growth in 5 days. Normal [facility] Comment on above: Performed By: #### M 200.1000 ####[facility] [address] [facility] [place], [address] Discharge Instructionon 12-14 Discharge Instruction Normal [facility] Eosinophil percentageOrdered By: Zahra Palacio on 01-05-2024 Eosinophil percentage 3.1 % 0-5 [facility] Erythrocyte distribution wid th (RBC) [Entitic vol]Ordered By: Zahra Palacio on 01-05-2024 Erythrocyte distribution width standard deviation 44.8 fl High 35.1-43.9 [facility] Erythrocyte distribution wid th (RBC) [Ratio]Ordered By: Zahra Palacio on 01-05-2024 Erythrocyte distribution width ratio 13.2 % 11.6-14.6 [facility] Estimated glomerular filtrat ion rate (GFR) AmericanOrdered By: Zahra Palacio on 01-05-2024 Estimated glomerular filtration rate (GFR) 88 mL/min >60 [facility] Estimation of creatinine maribel aranceOrdered By: Zahra Palacio on 01-05-2024 Estimation of creatinine clearance 64.01 ml/min [facility] Glomerular filtration rate ( GFR) estimationOrdered By: Zahra Palacio on 01-05-2024 Glomerular filtration rate (GFR) estimation 73 mL/min >60 [facility] Glucose measurementOrdered B y: Zahra Palacio on 01-05-2024 Glucose measurement 199 mg/dL High 74-106 [facility] Glucose measurement at bedsi deOrdered By: Zahra Palacio on 01-05-2024 Glucose measurement at bedside 183 mg/dL High 74-106 [facility] Hematocrit Auto (Bld) [Volum e fraction]Ordered By: Zahra Palacio on 01-05-2024 Automated blood hematocrit (percentage) 35.0 % Low 37-47 [facility] Hemoglobin measurementOrdere d By: Zahra Palacio on 01-05-2024 Hemoglobin measurement 11.1 g/dL Low 12.0-15.0 [facility] Immature granulocytes/100 WB C Auto (Bld)Ordered By: Zahra Palacio on 01-05-2024 Automated immature granulocyte percentage 0.400 % 0.0-0.9 [facility] Lymphocytes Auto (Unsp spec) [#/Vol]Ordered By: Zahra Palacio on 01-05-2024 Absolute lymphocyte count 1.78 X10^3/uL 0.83-4.51 [facility] Lymphocytes/100 WBC Auto (Un sp spec)Ordered By: Zahra Palacio on 01-05-2024 Automated lymphocyte count as percentage of total leukocytes 23.3 % 19-41 [facility] MCV (RBC) [Entitic vol]Order ed By: Zahra Palacio on 01-05-2024 MCV (mean corpuscular volume) determination 93.8 fL 81-99 [facility] Mean corpuscular hemoglobin (MCH) determinationOrdered By: Zarha Palacio on 01-05-2024 Mean corpuscular hemoglobin (MCH) determination 29.8 pg 27.0-32.0 [facility] Mean corpuscular hemoglobin concentration (MCHC) determinationOrdered By: Zahra Palacio on 01-05-2024 Mean corpuscular hemoglobin concentration (MCHC) determination 31.7 g/dL Low 32-36 [facility] Mean platelet volume determi nationOrdered By: Zahra Palacio on 01-05-2024 Mean platelet volume determination 10.8 fl 6.2-12.0 [facility] Monocyte percentageOrdered B y: Zahra Palacio on 01-05-2024 Monocyte percentage 6.9 % 0-10 [facility] Neutrophil percentageOrdered By: Zahra Palacio on 01-05-2024 Neutrophil percentage 66.2 % 47-70 [facility] No Panel InformationOrdered By: Zahra Palacio on 01-05-2024 14 U/L Low 15-37 [facility] Nucleated red blood cell per centageOrdered By: Zahra Palacio on 01-05-2024 Nucleated red blood cell percentage 0 % 0-5 [facility] Platelet countOrdered By: Didier Palacio on 01-05-2024 Platelet count 219 K/mm3 150-450 [facility] Potassium measurementOrdered By: Zahra Palacio on 01-05-2024 Potassium measurement 3.4 mmol/L Low 3.5-5.1 [facility] RBC Auto (Bld) [#/Vol]Ordere d By: Zahra Palacio on 01-05-2024 Automated blood erythrocyte count 3.73 M/mm3 Low 4.2-5.4 [facility] Serum anion gap measurementO rdered By: Zahra Palacio on 01-05-2024 Serum anion gap measurement 6 5-15 [facility] Serum globulin measurementOr dered By: Zahra Palacio on 01-05-2024 Serum globulin measurement 3.0 g/dL 2.2-4.2 [facility] Sodium levelOrdered By: Trish Palacio on 01-05-2024 Sodium level 141 mmol/L 136-145 [facility] Total proteinOrdered By: Rhoda Palacio on 01-05-2024 Total protein 6.1 g/dL Low 6.4-8.2 [facility] Urea nitrogen [Mass/Vol]Orde red By: Zahra Palacio on 01-05-2024 Serum or plasma urea nitrogen measurement (mass/volume) 14 mg/dL - [facility] White blood cell (WBC) count Ordered By: Zahra Palacio on 01-05-2024 White blood cell (WBC) count 7.6 K/mm3 4.4-11.0 [facility] 12 Lead EKGon 01-04-2024 12 Lead EKG Normal [facility] Basic Metabolic Profile (BMP )on 01-04-2024 BUN Normal 08-29 [facility] Comment on above: Result Comment: Lalito whitlock via OM: Ordered Performed By: #### L 100.0100, L500.2500 ####[facility] [address] [place], [place], [id number] Result Comment: OVER LAP WITH CMP ORDERED BY DR. ZAHRA PALACIO Performed By: #### L 500.2500 ####[facility] [address] [place], [place], [id number] BUN/CRE Normal - [facility] Comment on above: Result Comment: Canc elled via OM: MD Ordered Performed By: #### L 100.0100, L500.2500 ####[facility] [address] [place], [address] Result Comment: OVER LAP WITH CMP ORDERED BY DR. ZAHRA PALACIO Performed By: #### L 500.2500 ####[facility] [address] [place], [address] CA,Total Normal 8.5-10.1 [facility] Comment on above: Result Comment: Canc elled via OM: MD Ordered Performed By: #### L 100.0100, L500.2500 ####[facility] [address] [place], [address] Result Comment: OVER LAP WITH CMP ORDERED BY DR. ZAHRA PALACIO Performed By: #### L 500.2500 ####[facility] [address] [place], [address] CL Normal 98-107 [facility] Comment on above: Result Comment: Canc elled via OM: MD Ordered Performed By: #### L 100.0100, L500.2500 ####[facility] [address] [place], [address] Result Comment: OVER LAP WITH CMP ORDERED BY DR. ZAHRA PALACIO Performed By: #### L 500.2500 ####[facility] [address] [place], [address] CO2 Normal 21.0-32.0 [facility] Comment on above: Result Comment: Canc elled via OM: MD Ordered Performed By: #### L 100.0100, L500.2500 ####[facility] [address] [place], [address] Result Comment: OVER LAP WITH CMP ORDERED BY DR. ZAHRA PALACIO Performed By: #### L 500.2500 ####[facility] [address] [place], [address] CREAT,SERUM Normal 0.55-1.02 [facility] Comment on above: Result Comment: Lalito elled via OM: Ordered Performed By: #### L 100.0100, L500.2500 ####[facility] [address] [place], [address] Result Comment: OVER LAP WITH CMP ORDERED BY DR. ZAHRA PALACIO Performed By: #### L 500.2500 ####[facility] [address] [place], [address] EST GFR Normal >60 [facility] Comment on above: Result Comment: Lalito elled via OM: MD Ordered Performed By: #### L 100.0100, L500.2500 ####[facility] [address] [place], [address] Result Comment: OVER LAP WITH CMP ORDERED BY DR. ZAHRA PALACIO Performed By: #### L 500.2500 ####[facility] [address] [place], [address] EST GFR - AA Normal >60 [facility] Comment on above: Result Comment: Lalito yaned via OM: MD Ordered Performed By: #### L 100.0100, L500.2500 ####[facility] [address] [place], [address] Result Comment: OVER LAP WITH CMP ORDERED BY DR. ZAHRA PALACIO Performed By: #### L 500.2500 ####[facility] [address] [place], [address] GAP Normal 5-15 [facility] Comment on above: Result Comment: Lalito yaned via OM: MD Ordered Performed By: #### L 100.0100, L500.2500 ####[facility] [address] [place], [address] Result Comment: OVER LAP WITH CMP ORDERED BY DR. ZAHRA PALACIO Performed By: #### L 500.2500 ####[facility] [address] [place], [address] GLU Normal 74-106 [facility] Comment on above: Result Comment: Canc elled via OM: MD Ordered Performed By: #### L 100.0100, L500.2500 ####[facility] [address] [place], [address] Result Comment: OVER LAP WITH CMP ORDERED BY DR. ZAHRA PALACIO Performed By: #### L 500.2500 ####[facility] [address] [place], [address] Potassium Normal 3.5-5.1 [facility] Comment on above: Result Comment: Canc elled via OM: MD Ordered Performed By: #### L 100.0100, L500.2500 ####[facility] [address] [place], [address] Result Comment: OVER LAP WITH CMP ORDERED BY DR. ZAHRA PALACIO Performed By: #### L 500.2500 ####[facility] [address] [place], [address] Basic Metabolic Profile (BMP) Normal 136-145 [facility] Comment on above: Result Comment: Canc elled via OM: MD Ordered Performed By: #### L 100.0100, L500.2500 ####[facility] [address] [place], [address] Result Comment: OVER LAP WITH CMP ORDERED BY DR. ZAHRA PALACIO Performed By: #### L 500.2500 ####[facility] [address] [place], [address] Bedside Glucoseon 01-04-2024 FINGERSTICK GLU 173 mg/dL High 74-106 [facility] Comment on above: Result Comment: GERALDO BEGUM OF PATIENT CARE PER NURSING PROTOCOL Performed By: #### L 501.080 ####[facility] [address] [place], [address] FINGERSTICK GLU 159 mg/dL High 74-106 [facility] Comment on above: Result Comment: GERALDO GEMENT OF PATIENT CARE PER NURSING PROTOCOL Performed By: #### L 501.080 ####[facility] [address] [place], [address] FINGERSTICK GLU 201 mg/dL High 74-106 [facility] Comment on above: Result Comment: GERALDO GEMENT OF PATIENT CARE PER NURSING PROTOCOL Performed By: #### L 501.080 ####[facility] [address] [place], [address] CBC W/Diff, Automatedon 11-2 -2023 Absolute Lymph 2.34 X10 3/uL Normal 0.83-4.51 [facility] Comment on above: Performed By: #### L 100.0100, L500.2500 ####[facility] [address] [place], [address] Absolute Neut 5.0 X10 3/uL Normal 2.0-7.7 [facility] Comment on above: Performed By: #### L 100.0100, L500.2500 ####[facility] [address] [place], [address] Basophils/100 WBC (Bld) 0.2 % Normal 0-1 [facility] Comment on above: Performed By: #### L 100.0100, L500.2500 ####[facility] [address] [place], [address] Eosinophils/100 WBC (Bld) 3.0 % Normal 0-5 [facility] Comment on above: Performed By: #### L 100.0100, L500.2500 ####[facility] [address] [place], [address] Erythrocyte distribution width (RBC) [Ratio] 13.1 % Normal 11.6-14.6 [facility] Comment on above: Performed By: #### L 100.0100, L500.2500 ####[facility] [address] [place], [address] Hematocrit (Bld) [Volume fraction] 38.2 % Normal 37-47 [facility] Comment on above: Performed By: #### L 100.0100, L500.2500 ####[facility] [address] [place], [address] Hemoglobin (Bld) [Mass/Vol] 11.9 g/dL Low 12.0-15.0 [facility] Comment on above: Performed By: #### L 100.0100, L500.2500 ####[facility] [address] [place], [address] IG% 0.400 Normal 0.0-0.9 [facility] Comment on above: Result Comment: IG% - Immature Granulocytes (promyelocytes, myelocytes andmetamyelocytes) > 1% indicates that a LEFT SHIFT is Present. Performed By: #### L 100.0100, L500.2500 ####[facility] [address] [place], [address] Lymphocytes/100 WBC (Bld) 28.4 % Normal 19-41 [facility] Comment on above: Performed By: #### L 100.0100, L500.2500 ####[facility] [address] [place], [address] MCH (RBC) [Entitic mass] 29.0 pg Normal 27.0-32.0 [facility] Comment on above: Performed By: #### L 100.0100, L500.2500 ####[facility] [address] [place], [address] MCHC (RBC) [Mass/Vol] 31.2 g/dL Low 32-36 [facility] Comment on above: Performed By: #### L 100.0100, L500.2500 ####[facility] [address] [place], [address] MCV (RBC) [Entitic vol] 92.9 fL Normal 81-99 [facility] Comment on above: Performed By: #### L 100.0100, L500.2500 ####[facility] [address] [place], [address] Monocytes/100 WBC (Bld) 7.3 % Normal 0-10 [facility] Comment on above: Performed By: #### L 100.0100, L500.2500 ####[facility] [address] [place], [address] Neutrophils/100 WBC (Bld) 60.7 % Normal 47-70 [facility] Comment on above: Performed By: #### L 100.0100, L500.2500 ####[facility] [address] [place], [address] Nucleated RBC (Bld) [#/Vol] 0 10*3/uL Normal 0-5 [facility] Comment on above: Performed By: #### L 100.0100, L500.2500 ####[facility] [address] [place], [address] Platelet mean volume (Bld) [Entitic vol] 10.0 fL Normal 6.2-12.0 [facility] Comment on above: Performed By: #### L 100.0100, L500.2500 ####[facility] [address] [place], [address] Platelets (Bld) [#/Vol] 239 10*3/uL Normal 150-450 [facility] Comment on above: Performed By: #### L 100.0100, L500.2500 ####[facility] [address] [place], [address] RBC (Bld) [#/Vol] 4.11 10*6/uL Low 4.2-5.4 [facility] Comment on above: Performed By: #### L 100.0100, L500.2500 ####[facility] [address] [place], [address] RDW SD 43.8 fl Normal 35.1-43.9 [facility] Comment on above: Performed By: #### L 100.0100, L500.2500 ####[facility] [address] [place], [address] WBC (Bld) [#/Vol] 8.3 10*3/uL Normal 4.4-11.0 [facility] Comment on above: Performed By: #### L 100.0100, L500.2500 ####[facility] [address] [place], [address] Comprehensive Metabolic Prof [facility] 01-04-2024 Albumin [Mass/Vol] 3.2 g/dL Normal 3.2-5.0 [facility] Comment on above: Performed By: #### L 500.4050 ####[facility] [address] [place], [address] Albumin/Globulin [Mass ratio] 1.0 {ratio} Normal 0.9-2.4 [facility] Comment on above: Performed By: #### L 500.4050 ####[facility] [address] [place], [address] ALK P 64 U/L Normal 45-117 [facility] Comment on above: Performed By: #### L 500.4050 ####[facility] [address] [place], [address] ALT [Catalytic activity/Vol] 20 U/L Normal 13-56 [facility] Comment on above: Performed By: #### L 500.4050 ####[facility] [address] [place], [address] AST [Catalytic activity/Vol] 16 U/L Normal 15-37 [facility] Comment on above: Performed By: #### L 500.4050 ####[facility] [address] [place], [address] Bilirubin [Mass/Vol] 0.50 mg/dL Normal 0.20-1.00 [facility] Comment on above: Result Comment: For patients on eltrombopag therapy, use of Dimension [place] TBIL is not recommended. Performed By: #### L 500.4050 ####[facility] [address] [place], [address] BUN/CRE 21.2 RATIO High 10-20 [facility] Comment on above: Performed By: #### L 500.4050 ####[facility] [address] [place], [address] CA,Total 8.7 mg/dL Normal 8.5-10.1 [facility] Comment on above: Performed By: #### L 500.4050 ####[facility] [address] [place], [address] Chloride [Moles/Vol] 110 mmol/L High 98-107 [facility] Comment on above: Performed By: #### L 500.4050 ####[facility] [address] [place], [address] CO2 [Moles/Vol] 25.0 mmol/L Normal 21.0-32.0 [facility] Comment on above: Performed By: #### L 500.4050 ####[facility] [address] [place], [address] Creatinine [Mass/Vol] 0.80 mg/dL Normal 0.55-1.02 [facility] Comment on above: Result Comment: The validity of the calculated GFR GFRAA in patients over70 years has not been determined. Clinical correlation isessential. Performed By: #### L 500.4050 ####[facility] [address] [place], [address] ECRCL 65.41 ml/min Normal [facility] Comment on above: Performed By: #### L 500.4050 ####[facility] [address] [place], [address] EST GFR - AA 91 mL/min Normal >60 [facility] Comment on above: Result Comment: Afri can Macanese GFR Calc Performed By: #### L 500.4050 ####[facility] [address] [place], [address] GAP 6 Normal 5-15 [facility] Comment on above: Performed By: #### L 500.4050 ####[facility] [address] [place], [address] GFR/1.73 sq M.predicted among non-blacks MDRD (S/P/Bld) [Vol rate/Area] 75 mL/min/{1.73_m2} Normal >60 [facility] Comment on above: Result Comment: Non- GFR Calc Performed By: #### L 500.4050 ####[facility] [address] [place], [address] Globulin (S) [Mass/Vol] 3.1 g/dL Normal 2.2-4.2 [facility] Comment on above: Performed By: #### L 500.4050 ####[facility] [address] [place], [address] Glucose [Mass/Vol] 206 mg/dL High 74-106 [facility] Comment on above: Result Comment: Gluc ose result greater than or equal to 200 mg/dLsuggests DIABETES MELLITUS per A.D.A. criteria. Performed By: #### L 500.4050 ####[facility] [address] [place], [address] Potassium [Moles/Vol] 3.6 mmol/L Normal 3.5-5.1 [facility] Comment on above: Performed By: #### L 500.4050 ####[facility] [address] [place], [address] Sodium [Moles/Vol] 140 mmol/L Normal 136-145 [facility] Comment on above: Performed By: #### L 500.4050 ####[facility] [address] [place], [address] T PROT 6.3 g/dL Low 6.4-8.2 [facility] Comment on above: Performed By: #### L 500.4050 ####[facility] [address] [place], [address] Urea nitrogen [Mass/Vol] 17 mg/dL Normal 7-18 [facility] Comment on above: Performed By: #### L 500.4050 ####[facility] [address] [place], [address] EGD Reporton 01-04-2024 EGD Report Normal [facility] H Pylori (initial)on 024 H Pylori (initial) Normal [facility] Comment on above: Performed By: #### P H.PYLORI ####[facility] [address] [place], [address] MR/POSTOP.ANEon 01-04-2024 MR/POSTOP.ANE Normal [facility] MR/KWITSBCE1ap 01-04-2024 MR/POSTOPAN2 Normal [facility] Surgery Specimen Level Aristides 01-04-2024 Surgery Specimen Level IV Normal [facility] Comment on above: Performed By: #### P SUIV ####[facility] [address] [place], [address] Type AND Screenon 01-04-2024 Ab SCREEN GEL Negative Normal [facility] Comment on above: Order Comment: RE-DR CARUSO Performed By: #### B TS ####[facility] [address] [place], [address] ABO and Rh group Nom (Bld) Blood group O Rh(D) positive Normal [facility] Comment on above: Order Comment: RE-DR CARUSO Performed By: #### B TS ####[facility] [address] [place], [address] Basic Metabolic Profile (BMP )on 01-03-2024 BUN/CRE 25.8 RATIO High 10-20 [facility] Comment on above: Performed By: #### L 100.0100, L500.2500 ####[facility] [address] [place], [address] CA,Total 8.5 mg/dL Normal 8.5-10.1 [facility] Comment on above: Performed By: #### L 100.0100, L500.2500 ####[facility] [address] [place], [address] Chloride [Moles/Vol] 109 mmol/L High 98-107 [facility] Comment on above: Performed By: #### L 100.0100, L500.2500 ####[facility] [address] [place], [address] CO2 [Moles/Vol] 25.0 mmol/L Normal 21.0-32.0 [facility] Comment on above: Performed By: #### L 100.0100, L500.2500 ####[facility] [address] [place], [address] Creatinine [Mass/Vol] 0.85 mg/dL Normal 0.55-1.02 [facility] Comment on above: Result Comment: The validity of the calculated GFR GFRAA in patients over70 years has not been determined. Clinical correlation isessential. Performed By: #### L 100.0100, L500.2500 ####[facility] [address] [place], [address] ECRCL 46.47 ml/min Normal [facility] Comment on above: Performed By: #### L 100.0100, L500.2500 ####[facility] [address] [place], [address] EST GFR - AA 85 mL/min Normal >60 [facility] Comment on above: Result Comment: Afri can Macanese GFR Calc Performed By: #### L 100.0100, L500.2500 ####[facility] [address] [place], [address] GAP 7 Normal 5-15 [facility] Comment on above: Performed By: #### L 100.0100, L500.2500 ####[facility] [address] [place], [address] GFR/1.73 sq M.predicted among non-blacks MDRD (S/P/Bld) [Vol rate/Area] 70 mL/min/{1.73_m2} Normal >60 [facility] Comment on above: Result Comment: Non- GFR Calc Performed By: #### L 100.0100, L500.2500 ####[facility] [address] [place], [address] Glucose [Mass/Vol] 243 mg/dL High 74-106 [facility] Comment on above: Result Comment: Gluc ose result greater than or equal to 200 mg/dLsuggests DIABETES MELLITUS per A.D.A. criteria. Performed By: #### L 100.0100, L500.2500 ####[facility] [address] [place], [address] Potassium [Moles/Vol] 3.2 mmol/L Low 3.5-5.1 [facility] Comment on above: Performed By: #### L 100.0100, L500.2500 ####[facility] [address] [place], [address] Sodium [Moles/Vol] 141 mmol/L Normal 136-145 [facility] Comment on above: Performed By: #### L 100.0100, L500.2500 ####[facility] [address] [place], [address] Urea nitrogen [Mass/Vol] 22 mg/dL High 7-18 [facility] Comment on above: Performed By: #### L 100.0100, L500.2500 ####[facility] [address] [place], [address] Bedside Glucoseon 01-03-2024 FINGERSTICK GLU 179 mg/dL High 74-106 [facility] Comment on above: Result Comment: GERALDO GEMENT OF PATIENT CARE PER NURSING PROTOCOL Performed By: #### L 501.080 ####[facility] [address] [place], [address] FINGERSTICK GLU 263 mg/dL High 74-106 [facility] Comment on above: Result Comment: GERALDO GEMENT OF PATIENT CARE PER NURSING PROTOCOL Performed By: #### L 501.080 ####[facility] [address] [place], [address] FINGERSTICK GLU 200 mg/dL High 74-106 [facility] Comment on above: Result Comment: GERALDO GEMENT OF PATIENT CARE PER NURSING PROTOCOL Performed By: #### L 501.080 ####[facility] [address] [place], [address] CBC W/Diff, Automatedon 11- Absolute Lymph 2.06 X10 3/uL Normal 0.83-4.51 [facility] Comment on above: Performed By: #### L 100.0100, L500.2500 ####[facility] [address] [place], [address] Absolute Neut 5.7 X10 3/uL Normal 2.0-7.7 [facility] Comment on above: Performed By: #### L 100.0100, L500.2500 ####[facility] [address] [place], [address] Basophils/100 WBC (Bld) 0.1 % Normal 0-1 [facility] Comment on above: Performed By: #### L 100.0100, L500.2500 ####[facility] [address] [place], [address] Eosinophils/100 WBC (Bld) 2.1 % Normal 0-5 [facility] Comment on above: Performed By: #### L 100.0100, L500.2500 ####[facility] [address] [place], [address] Erythrocyte distribution width (RBC) [Ratio] 12.9 % Normal 11.6-14.6 [facility] Comment on above: Performed By: #### L 100.0100, L500.2500 ####[facility] [address] [place], [address] Hematocrit (Bld) [Volume fraction] 35.5 % Low 37-47 [facility] Comment on above: Performed By: #### L 100.0100, L500.2500 ####[facility] [address] [place], [address] Hemoglobin (Bld) [Mass/Vol] 11.0 g/dL Low 12.0-15.0 [facility] Comment on above: Performed By: #### L 100.0100, L500.2500 ####[facility] [address] [place], [address] IG% 0.400 Normal 0.0-0.9 [facility] Comment on above: Result Comment: IG% - Immature Granulocytes (promyelocytes, myelocytes andmetamyelocytes) > 1% indicates that a LEFT SHIFT is Present. Performed By: #### L 100.0100, L500.2500 ####[facility] [address] [place], [address] Lymphocytes/100 WBC (Bld) 24.1 % Normal 19-41 [facility] Comment on above: Performed By: #### L 100.0100, L500.2500 ####[facility] [address] [place], [address] MCH (RBC) [Entitic mass] 28.9 pg Normal 27.0-32.0 [facility] Comment on above: Performed By: #### L 100.0100, L500.2500 ####[facility] [address] [place], [address] MCHC (RBC) [Mass/Vol] 31.0 g/dL Low 32-36 [facility] Comment on above: Performed By: #### L 100.0100, L500.2500 ####[facility] [address] [place], [address] MCV (RBC) [Entitic vol] 93.4 fL Normal 81-99 [facility] Comment on above: Performed By: #### L 100.0100, L500.2500 ####[facility] [address] [place], [address] Monocytes/100 WBC (Bld) 6.7 % Normal 0-10 [facility] Comment on above: Performed By: #### L 100.0100, L500.2500 ####[facility] [address] [place], [address] Neutrophils/100 WBC (Bld) 66.6 % Normal 47-70 [facility] Comment on above: Performed By: #### L 100.0100, L500.2500 ####[facility] [address] [place], [address] Nucleated RBC (Bld) [#/Vol] 0 10*3/uL Normal 0-5 [facility] Comment on above: Performed By: #### L 100.0100, L500.2500 ####[facility] [address] [place], [address] Platelet mean volume (Bld) [Entitic vol] 9.9 fL Normal 6.2-12.0 [facility] Comment on above: Performed By: #### L 100.0100, L500.2500 ####[facility] [address] [place], [address] Platelets (Bld) [#/Vol] 221 10*3/uL Normal 150-450 [facility] Comment on above: Performed By: #### L 100.0100, L500.2500 ####[facility] [address] [place], [address] RBC (Bld) [#/Vol] 3.80 10*6/uL Low 4.2-5.4 [facility] Comment on above: Performed By: #### L 100.0100, L500.2500 ####[facility] [address] [place], [address] RDW SD 44.0 fl High 35.1-43.9 [facility] Comment on above: Performed By: #### L 100.0100, L500.2500 ####[facility] [address] [place], [address] WBC (Bld) [#/Vol] 8.6 10*3/uL Normal 4.4-11.0 [facility] Comment on above: Performed By: #### L 100.0100, L500.2500 ####[facility] [address] [place], [address] Lipaseon 01-03-2024 Lipase [Catalytic activity/Vol] 30 U/L Normal 13-75 [facility] Comment on above: Order Comment: Comme nts: Add onto previous labs if possible Result Comment: La aguilar note:LIPASE revised reference range effective 22.New Lipase methodology. Expected to produce lower valuesthan the previous assay method.NEW Reference Range: 13 - 75 U/L Performed By: #### L 501.2450 ####[facility] [address] [place], [address] Lipase measurementOrdered By : Zahra Palacio on 01-03-2024 Lipase measurement 30 U/L 13-75 [facility] Basic Metabolic Profile (BMP )on 01-02-2024 BUN/CRE 30.7 RATIO High - [facility] Comment on above: Performed By: #### L 500.2500, L100.0100 ####[facility] [address] [place], [address] CA,Total 9.0 mg/dL Normal 8.5-10.1 [facility] Comment on above: Performed By: #### L 500.2500, L100.0100 ####[facility] [address] [place], [address] Chloride [Moles/Vol] 111 mmol/L High 98-107 [facility] Comment on above: Performed By: #### L 500.2500, L100.0100 ####[facility] [address] [place], [address] CO2 [Moles/Vol] 25.0 mmol/L Normal 21.0-32.0 [facility] Comment on above: Performed By: #### L 500.2500, L100.0100 ####[facility] [address] [place], [address] Creatinine [Mass/Vol] 1.01 mg/dL Normal 0.55-1.02 [facility] Comment on above: Result Comment: The validity of the calculated GFR GFRAA in patients over70 years has not been determined. Clinical correlation isessential. Performed By: #### L 500.2500, L100.0100 ####[facility] [address] [place], [address] ECRCL 39.19 ml/min Normal [facility] Comment on above: Performed By: #### L 500.2500, L100.0100 ####[facility] [address] [place], [address] EST GFR - AA 70 mL/min Normal >60 [facility] Comment on above: Result Comment: Afri can Macanese GFR Calc Performed By: #### L 500.2500, L100.0100 ####[facility] [address] [place], [address] GAP 6 Normal 5-15 [facility] Comment on above: Performed By: #### L 500.2500, L100.0100 ####[facility] [address] [place], [address] GFR/1.73 sq M.predicted among non-blacks MDRD (S/P/Bld) [Vol rate/Area] 58 mL/min/{1.73_m2} Low >60 [facility] Comment on above: Result Comment: Non- GFR Calc Performed By: #### L 500.2500, L100.0100 ####[facility] [address] [place], [address] Glucose [Mass/Vol] 181 mg/dL High 74-106 [facility] Comment on above: Result Comment: Fast ing Glucose result greater than or equal to 126 mg/dLsuggests DIABETES MELLITUS per A.D.A. criteria. Performed By: #### L 500.2500, L100.0100 ####[facility] [address] [place], [address] Potassium [Moles/Vol] 4.6 mmol/L Normal 3.5-5.1 [facility] Comment on above: Performed By: #### L 500.2500, L100.0100 ####[facility] [address] [place], [address] Sodium [Moles/Vol] 142 mmol/L Normal 136-145 [facility] Comment on above: Performed By: #### L 500.2500, L100.0100 ####[facility] [address] [place], [address] Urea nitrogen [Mass/Vol] 31 mg/dL High 7-18 [facility] Comment on above: Performed By: #### L 500.2500, L100.0100 ####[facility] [address] [place], [address] Bedside Glucoseon 01-02-2024 FINGERSTICK GLU 236 mg/dL High 74-106 [facility] Comment on above: Result Comment: GERALDO GEMENT OF PATIENT CARE PER NURSING PROTOCOL Performed By: #### L 501.080 ####[facility] [address] [place], [address] FINGERSTICK GLU 177 mg/dL High 74-106 [facility] Comment on above: Result Comment: GERALDO GEMENT OF PATIENT CARE PER NURSING PROTOCOL Performed By: #### L 501.080 ####[facility] [address] [place], [address] FINGERSTICK GLU 166 mg/dL High 74-106 [facility] Comment on above: Result Comment: GERALDO GEMENT OF PATIENT CARE PER NURSING PROTOCOL Performed By: #### L 501.080 ####[facility] [address] [place], [address] FINGERSTICK GLU 225 mg/dL High 74-106 [facility] Comment on above: Result Comment: GERALDO GEMENT OF PATIENT CARE PER NURSING PROTOCOL Performed By: #### L 501.080 ####[facility] [address] [place], [address] CBC W/Diff, Automatedon 11-2 PATH REV Reviewed Normal [facility] Comment on above: Result Comment: ADDIE MESA MD 01/02/2024 AMENDED REPORT 01/02/24 0831 PATH REV previously reported as: June Performed By: #### L 500.4050, L100.0100, L501.9985, L500.4100, L501.9520 ####[facility] [address] [place], [address] Absolute Lymph 2.31 X10 3/uL Normal 0.83-4.51 [facility] Comment on above: Performed By: #### L 500.2500, L100.0100 ####[facility] [address] [place], [address] Absolute Neut 8.4 X10 3/uL High 2.0-7.7 [facility] Comment on above: Performed By: #### L 500.2500, L100.0100 ####[facility] [address] [place], [address] Basophils/100 WBC (Bld) 0.1 % Normal 0-1 [facility] Comment on above: Performed By: #### L 500.2500, L100.0100 ####[facility] [address] [place], [address] Eosinophils/100 WBC (Bld) 1.0 % Normal 0-5 [facility] Comment on above: Performed By: #### L 500.2500, L100.0100 ####[facility] [address] [place], [address] Erythrocyte distribution width (RBC) [Ratio] 13.2 % Normal 11.6-14.6 [facility] Comment on above: Performed By: #### L 500.2500, L100.0100 ####[facility] [address] [place], [address] Hematocrit (Bld) [Volume fraction] 39.7 % Normal 37-47 [facility] Comment on above: Performed By: #### L 500.2500, L100.0100 ####[facility] [address] [place], [address] Hemoglobin (Bld) [Mass/Vol] 12.2 g/dL Normal 12.0-15.0 [facility] Comment on above: Performed By: #### L 500.2500, L100.0100 ####[facility] [address] [place], [address] IG% 0.400 Normal 0.0-0.9 [facility] Comment on above: Result Comment: IG% - Immature Granulocytes (promyelocytes, myelocytes andmetamyelocytes) > 1% indicates that a LEFT SHIFT is Present. Performed By: #### L 500.2500, L100.0100 ####[facility] [address] [place], [address] Lymphocytes/100 WBC (Bld) 19.3 % Normal 19-41 [facility] Comment on above: Performed By: #### L 500.2500, L100.0100 ####[facility] [address] [place], [address] MCH (RBC) [Entitic mass] 29.4 pg Normal 27.0-32.0 [facility] Comment on above: Performed By: #### L 500.2500, L100.0100 ####[facility] [address] [place], [address] MCHC (RBC) [Mass/Vol] 30.7 g/dL Low 32-36 [facility] Comment on above: Performed By: #### L 500.2500, L100.0100 ####[facility] [address] [place], [address] MCV (RBC) [Entitic vol] 95.7 fL Normal 81-99 [facility] Comment on above: Performed By: #### L 500.2500, L100.0100 ####[facility] [address] [place], [address] Monocytes/100 WBC (Bld) 8.5 % Normal 0-10 [facility] Comment on above: Performed By: #### L 500.2500, L100.0100 ####[facility] [address] [place], [address] Neutrophils/100 WBC (Bld) 70.7 % High 47-70 [facility] Comment on above: Performed By: #### L 500.2500, L100.0100 ####[facility] [address] [place], [address] Nucleated RBC (Bld) [#/Vol] 0 10*3/uL Normal 0-5 [facility] Comment on above: Performed By: #### L 500.2500, L100.0100 ####[facility] [address] [place], [address] Platelet mean volume (Bld) [Entitic vol] 9.6 fL Normal 6.2-12.0 [facility] Comment on above: Performed By: #### L 500.2500, L100.0100 ####[facility] [address] [place], [address] Platelets (Bld) [#/Vol] 193 10*3/uL Normal 150-450 [facility] Comment on above: Performed By: #### L 500.2500, L100.0100 ####[facility] [address] [place], [address] RBC (Bld) [#/Vol] 4.15 10*6/uL Low 4.2-5.4 [facility] Comment on above: Performed By: #### L 500.2500, L100.0100 ####[facility] [address] [place], [address] RDW SD 46.1 fl High 35.1-43.9 [facility] Comment on above: Performed By: #### L 500.2500, L100.0100 ####[facility] [address] [place], [address] WBC (Bld) [#/Vol] 11.9 10*3/uL High 4.4-11.0 [facility] Comment on above: Performed By: #### L 500.2500, L100.0100 ####[facility] [address] [place], [address] CDIFF (PCR)on 01-02-2024 CDIFF Normal [facility] Comment on above: Performed By: #### M 100.6796, M100.6795 ####[facility] [address] [place], [address] Clostridium Diff Toxin/Agon 01-02-2024 CDIFF (EIA) Normal [facility] Comment on above: Performed By: #### M 100.6796, M100.6795 ####[facility] [address] [place], [address] ENTERIC PATHOGEN PANEL STOOL on 01-02-2024 EP PANEL CAMPYLOBACTER Not Detected Norovirus Not Detected Rotavirus Not Detected Salmonella Not Detected Shiga Toxin Not Detected Shigella sp. Not Detected VIBRIO Not Detected Yersinia Not Detected Normal [facility] Comment on above: Performed By: #### M 100.637 ####[facility] [address] [place], [address] Basic Metabolic Profile (BMP )on 01-01-2024 BUN/CRE 30.3 RATIO High 10-20 [facility] Comment on above: Performed By: #### L 500.2500, L100.0100 ####[facility] [address] [place], [address] CA,Total 8.9 mg/dL Normal 8.5-10.1 [facility] Comment on above: Performed By: #### L 500.2500, L100.0100 ####[facility] [address] [place], [address] Chloride [Moles/Vol] 112 mmol/L High 98-107 [facility] Comment on above: Performed By: #### L 500.2500, L100.0100 ####[facility] [address] [place], [address] CO2 [Moles/Vol] 25.0 mmol/L Normal 21.0-32.0 [facility] Comment on above: Performed By: #### L 500.2500, L100.0100 ####[facility] [address] [place], [address] Creatinine [Mass/Vol] 1.32 mg/dL High 0.55-1.02 [facility] Comment on above: Result Comment: The validity of the calculated GFR GFRAA in patients over70 years has not been determined. Clinical correlation isessential. Performed By: #### L 500.2500, L100.0100 ####[facility] [address] [place], [address] ECRCL 29.80 ml/min Normal [facility] Comment on above: Performed By: #### L 500.2500, L100.0100 ####[facility] [address] [place], [address] EST GFR - AA 51 mL/min Low >60 [facility] Comment on above: Result Comment: Afri can Macanese GFR Calc Performed By: #### L 500.2500, L100.0100 ####[facility] [address] [place], [address] GAP 4 Low 5-15 [facility] Comment on above: Performed By: #### L 500.2500, L100.0100 ####[facility] [address] [place], [address] GFR/1.73 sq M.predicted among non-blacks MDRD (S/P/Bld) [Vol rate/Area] 42 mL/min/{1.73_m2} Low >60 [facility] Comment on above: Result Comment: Non- GFR Calc Performed By: #### L 500.2500, L100.0100 ####[facility] [address] [place], [address] Glucose [Mass/Vol] 227 mg/dL High 74-106 [facility] Comment on above: Result Comment: Gluc ose result greater than or equal to 200 mg/dLsuggests DIABETES MELLITUS per A.D.A. criteria. Performed By: #### L 500.2500, L100.0100 ####[facility] [address] [place], [address] Potassium [Moles/Vol] 4.3 mmol/L Normal 3.5-5.1 [facility] Comment on above: Performed By: #### L 500.2500, L100.0100 ####[facility] [address] [place], [address] Sodium [Moles/Vol] 141 mmol/L Normal 136-145 [facility] Comment on above: Performed By: #### L 500.2500, L100.0100 ####[facility] [address] [place], [address] Urea nitrogen [Mass/Vol] 40 mg/dL High 7-18 [facility] Comment on above: Performed By: #### L 500.2500, L100.0100 ####[facility] [address] [place], [address] Bedside Glucoseon 01-01-2024 FINGERSTICK GLU 187 mg/dL High 74-106 [facility] Comment on above: Result Comment: GERALDO BEGUM OF PATIENT CARE PER NURSING PROTOCOL Performed By: #### L 501.080 ####[facility] [address] [place], [address] FINGERSTICK GLU 186 mg/dL High 74-106 [facility] Comment on above: Result Comment: GERALDO GEMENT OF PATIENT CARE PER NURSING PROTOCOL Performed By: #### L 501.080 ####[facility] [address] [place], [address] FINGERSTICK GLU 213 mg/dL High 74-106 [facility] Comment on above: Result Comment: GERALDO GEMENT OF PATIENT CARE PER NURSING PROTOCOL Performed By: #### L 501.080 ####[facility] [address] [place], [address] CBC W/Diff, Automatedon 11 Absolute Lymph 1.65 X10 3/uL Normal 0.83-4.51 [facility] Comment on above: Performed By: #### L 500.2500, L100.0100 ####[facility] [address] [place], [address] Absolute Neut 14.5 X10 3/uL High 2.0-7.7 [facility] Comment on above: Performed By: #### L 500.2500, L100.0100 ####[facility] [address] [place], [address] Basophils/100 WBC (Bld) 0.1 % Normal 0-1 [facility] Comment on above: Performed By: #### L 500.2500, L100.0100 ####[facility] [address] [place], [address] Eosinophils/100 WBC (Bld) 0.3 % Normal 0-5 [facility] Comment on above: Performed By: #### L 500.2500, L100.0100 ####[facility] [address] [place], [address] Erythrocyte distribution width (RBC) [Ratio] 13.3 % Normal 11.6-14.6 [facility] Comment on above: Performed By: #### L 500.2500, L100.0100 ####[facility] [address] [place], [address] Hematocrit (Bld) [Volume fraction] 42.1 % Normal 37-47 [facility] Comment on above: Performed By: #### L 500.2500, L100.0100 ####[facility] [address] [place], [address] Hemoglobin (Bld) [Mass/Vol] 13.2 g/dL Normal 12.0-15.0 [facility] Comment on above: Performed By: #### L 500.2500, L100.0100 ####[facility] [address] [place], [address] IG% 0.500 Normal 0.0-0.9 [facility] Comment on above: Result Comment: IG% - Immature Granulocytes (promyelocytes, myelocytes andmetamyelocytes) > 1% indicates that a LEFT SHIFT is Present. Performed By: #### L 500.2500, L100.0100 ####[facility] [address] [place], [address] Lymphocytes/100 WBC (Bld) 9.6 % Low 19-41 [facility] Comment on above: Performed By: #### L 500.2500, L100.0100 ####[facility] [address] [place], [address] MCH (RBC) [Entitic mass] 29.1 pg Normal 27.0-32.0 [facility] Comment on above: Performed By: #### L 500.2500, L100.0100 ####[facility] [address] [place], [address] MCHC (RBC) [Mass/Vol] 31.4 g/dL Low 32-36 [facility] Comment on above: Performed By: #### L 500.2500, L100.0100 ####[facility] [address] [place], [address] MCV (RBC) [Entitic vol] 92.9 fL Normal 81-99 [facility] Comment on above: Performed By: #### L 500.2500, L100.0100 ####[facility] [address] [place], [address] Monocytes/100 WBC (Bld) 5.6 % Normal 0-10 [facility] Comment on above: Performed By: #### L 500.2500, L100.0100 ####[facility] [address] [place], [address] Neutrophils/100 WBC (Bld) 83.9 % High 47-70 [facility] Comment on above: Performed By: #### L 500.2500, L100.0100 ####[facility] [address] [place], [address] Nucleated RBC (Bld) [#/Vol] 0 10*3/uL Normal 0-5 [facility] Comment on above: Performed By: #### L 500.2500, L100.0100 ####[facility] [address] [place], [address] Platelet mean volume (Bld) [Entitic vol] 9.6 fL Normal 6.2-12.0 [facility] Comment on above: Performed By: #### L 500.2500, L100.0100 ####[facility] [address] [place], [address] Platelets (Bld) [#/Vol] 292 10*3/uL Normal 150-450 [facility] Comment on above: Performed By: #### L 500.2500, L100.0100 ####[facility] [address] [place], [address] RBC (Bld) [#/Vol] 4.53 10*6/uL Normal 4.2-5.4 [facility] Comment on above: Performed By: #### L 500.2500, L100.0100 ####[facility] [address] [place], [address] RDW SD 45.4 fl High 35.1-43.9 [facility] Comment on above: Performed By: #### L 500.2500, L100.0100 ####[facility] [address] [place], [address] WBC (Bld) [#/Vol] 17.3 10*3/uL High 4.4-11.0 [facility] Comment on above: Performed By: #### L 500.2500, L100.0100 ####[facility] [address] [place], [address] Urine Cultureon 01-01-2024 URC Normal [facility] Comment on above: Performed By: #### M 100.2200, M100.678 ####[facility] [address] [place], [address] Bedside Glucoseon 12-31-2023 FINGERSTICK GLU 205 mg/dL High [address] [place] [address] Comment on above: Result Comment: GERALDO GEMENT OF PATIENT CARE PER NURSING PROTOCOL Performed By: #### L 501.080 ####[facility] [address] [place], [address] FINGERSTICK GLU 191 mg/dL High [address] [place] [address] Comment on above: Result Comment: GERALDO GEMENT OF PATIENT CARE PER NURSING PROTOCOL Performed By: #### L 501.080 ####[facility] [address] [place], [address] FINGERSTICK GLU 244 mg/dL High [address] [place] [address] Comment on above: Result Comment: GERALDO GEMENT OF PATIENT CARE PER NURSING PROTOCOL Performed By: #### L 501.080 ####[facility] [address] [place], [address] FINGERSTICK GLU 264 mg/dL High 74-106 [facility] Comment on above: Result Comment: GERALDO GEMENT OF PATIENT CARE PER NURSING PROTOCOL Performed By: #### L 501.080 ####[facility] [address] [place], [address] FINGERSTICK GLU 300 mg/dL High 74-106 [facility] Comment on above: Result Comment: GERALDO GEMENT OF PATIENT CARE PER NURSING PROTOCOL Performed By: #### L 501.080 ####[facility] [address] [place], [address] Chest 1 View (Portable)on Chest 1 View (Portable) Normal [facility] Cholesterol [Mass/Vol]Ordere d By: Kanwal Aguilar on 12-31-2023 Serum or plasma cholesterol measurement (mass/volume) 161 mg/dL <200 [facility] Comprehensive Metabolic Prof ilon 12-31-2023 Albumin [Mass/Vol] 3.1 g/dL Low 3.2-5.0 [facility] Comment on above: Performed By: #### L 500.4050, L100.0100, L501.9985, L500.4100, L501.9520 ####[facility] [address] [place], [address] Albumin/Globulin [Mass ratio] 0.9 {ratio} Normal 0.9-2.4 [facility] Comment on above: Performed By: #### L 500.4050, L100.0100, L501.9985, L500.4100, L501.9520 ####[facility] [address] [place], [address] ALK P 73 U/L Normal 45-117 [facility] Comment on above: Performed By: #### L 500.4050, L100.0100, L501.9985, L500.4100, L501.9520 ####[facility] [address] [place], [address] ALT [Catalytic activity/Vol] 31 U/L Normal 13-56 [facility] Comment on above: Performed By: #### L 500.4050, L100.0100, L501.9985, L500.4100, L501.9520 ####[facility] [address] [place], [address] AST [Catalytic activity/Vol] 29 U/L Normal 15-37 [facility] Comment on above: Performed By: #### L 500.4050, L100.0100, L501.9985, L500.4100, L501.9520 ####[facility] [address] [place], [address] Bilirubin [Mass/Vol] 0.40 mg/dL Normal 0.20-1.00 [facility] Comment on above: Result Comment: For patients on eltrombopag therapy, use of Dimension [place] TBIL is not recommended. Performed By: #### L 500.4050, L100.0100, L501.9985, L500.4100, L501.9520 ####[facility] [address] [place], [address] BUN/CRE 22.3 RATIO High 10-20 [facility] Comment on above: Performed By: #### L 500.4050, L100.0100, L501.9985, L500.4100, L501.9520 ####[facility] [address] [place], [address] CA,Total 7.9 mg/dL Low 8.5-10.1 [facility] Comment on above: Performed By: #### L 500.4050, L100.0100, L501.9985, L500.4100, L501.9520 ####[facility] [address] [place], [address] Chloride [Moles/Vol] 113 mmol/L High 98-107 [facility] Comment on above: Performed By: #### L 500.4050, L100.0100, L501.9985, L500.4100, L501.9520 ####[facility] [address] [place], [address] CO2 [Moles/Vol] 20.0 mmol/L Low 21.0-32.0 [facility] Comment on above: Performed By: #### L 500.4050, L100.0100, L501.9985, L500.4100, L501.9520 ####[facility] [address] [place], [address] Creatinine [Mass/Vol] 1.66 mg/dL High 0.55-1.02 [facility] Comment on above: Result Comment: The validity of the calculated GFR GFRAA in patients over70 years has not been determined. Clinical correlation isessential. Performed By: #### L 500.4050, L100.0100, L501.9985, L500.4100, L501.9520 ####[facility] [address] [place], [address] ECRCL 23.05 ml/min Normal [facility] Comment on above: Performed By: #### L 500.4050, L100.0100, L501.9985, L500.4100, L501.9520 ####[facility] [address] [place], [address] EST GFR - AA 39 mL/min Low >60 [facility] Comment on above: Result Comment: Afri can Mac[place] GFR Calc Performed By: #### L 500.4050, L100.0100, L501.9985, L500.4100, L501.9520 ####[facility] [address] [place], [address] GAP 8 Normal 5-15 [facility] Comment on above: Performed By: #### L 500.4050, L100.0100, L501.9985, L500.4100, L501.9520 ####[facility] [address] [place], [address] GFR/1.73 sq M.predicted among non-blacks MDRD (S/P/Bld) [Vol rate/Area] 32 mL/min/{1.73_m2} Low >60 [facility] Comment on above: Result Comment: Non- GFR Calc Performed By: #### L 500.4050, L100.0100, L501.9985, L500.4100, L501.9520 ####[facility] [address] [place], [address] Globulin (S) [Mass/Vol] 3.6 g/dL Normal 2.2-4.2 [facility] Comment on above: Performed By: #### L 500.4050, L100.0100, L501.9985, L500.4100, L501.9520 ####[facility] [address] [place], [address] Glucose [Mass/Vol] 305 mg/dL High 74-106 [facility] Comment on above: Result Comment: Gluc ose result greater than or equal to 200 mg/dLsuggests DIABETES MELLITUS per A.D.A. criteria. Performed By: #### L 500.4050, L100.0100, L501.9985, L500.4100, L501.9520 ####[facility] [address] [place], [address] Potassium [Moles/Vol] 4.0 mmol/L Normal 3.5-5.1 [facility] Comment on above: Performed By: #### L 500.4050, L100.0100, L501.9985, L500.4100, L501.9520 ####[facility] [address] [place], [address] Sodium [Moles/Vol] 140 mmol/L Normal 136-145 [facility] Comment on above: Performed By: #### L 500.4050, L100.0100, L501.9985, L500.4100, L501.9520 ####[facility] [address] [place], [address] T PROT 6.7 g/dL Normal 6.4-8.2 [facility] Comment on above: Performed By: #### L 500.4050, L100.0100, L501.9985, L500.4100, L501.9520 ####[facility] [address] [place], [address] Urea nitrogen [Mass/Vol] 37 mg/dL High 08-29 [facility] Comment on above: Performed By: #### L 500.4050, L100.0100, L501.9985, L500.4100, L501.9520 ####[facility] [address] [place], [address] Consultation - Cardiologyon 12-31-2023 Consultation - Cardiology Normal [facility] HH, Hemoglobin AND Hematocri ton 12-31-2023 HCT Normal 37-47 [facility] Comment on above: Result Comment: @GAL E RAS SAID IT WAS OK TO CANCEL@- DREX 12/31/232204 Performed By: #### L 100.0600 ####[facility] [address] [place], [address] HGB Normal 12.0-15.0 [facility] Comment on above: Result Comment: @GAL E RAS SAID IT WAS OK TO CANCEL@- DREX 12/31/232204 Performed By: #### L 100.0600 ####[facility] [address] [place], [address] HbA1c (Bld) [Mass fraction]O rdered By: Kanwal Aguilar on 12-31-2023 Hemoglobin A1c percentage 5.5 % 3.8-5.6 [facility] Hemoglobin A1con 12-31-2023 HbA1c (Bld) [Mass fraction] 5.5 % Normal 3.8-5.6 [facility] Comment on above: Result Comment: Norm al < 5.7 % Prediabetic 5.7 - 6.4 % Diabetic >or= 6.5 % Please note range changes. Performed By: #### L 500.4050, L100.0100, L501.9985, L500.4100, L501.9520 ####[facility] [address] [place], [address] High density lipoprotein (HD L) measurementOrdered By: Kanwal Aguilar on 12-31-2023 High density lipoprotein (HDL) measurement 69 mg/dL >40 [facility] L501.4020on 12-31-2023 TROPONIN-I HS 3067 pg/mL Invalid Interpretation Code 3.0-54.0 [facility] Comment on above: Order Comment: 'TROP ' Serial specimen #1, #2 or #3: 3 Result Comment: Crit ical Result(s) Called at: 01:14:27 12/31/2023 by:Wilfrid ferrer. Results read back by same. Please Note: New Test Units and Gender Specific Reference Ranges. For more information see Policy Stat Procedure [place] High Sensitivity Troponin (TNIH) and attachments. Performed By: #### L 501.4042 ####[facility] [address] [place], [place], [address] Lactic Acidon 12-31-2023 Lactate [Moles/Vol] 3.2 mmol/L Invalid Interpretation Code 0.4-1.9 [facility] Comment on above: Result Comment: Crit ical Result(s) Called at: 00:14:59 12/31/2023 by:Wilfrid efrrer. Results read back by same. Performed By: #### L 503.6005 ####[facility] [address] [place], [place], [id number] Legionella Antigen Urineon 1 03-01-2023 LEGU Normal [facility] Comment on above: Performed By: #### M 300.4500 ####[facility] [address] [place], [address] Lipid Profileon 12-31-2023 Cholesterol [Mass/Vol] 161 mg/dL Normal 200 [facility] Comment on above: Result Comment: <200 mg/dL Desirable 200-240 mg/dL Borderline >240 mg/dL High Risk Performed By: #### L 500.4050, L100.0100, L501.9985, L500.4100, L501.9520 ####[facility] [address] [place], [address] Cholesterol in HDL [Mass/Vol] 69 mg/dL Normal [facility] Comment on above: Result Comment: The drugs N-Acetylcysteine and Metamizole may falselydepress this assay. Reference Range HDL <40 mg/dL Low HDL Cholesterol HDL >or= 60 mg/dL High HDL Cholesterol Performed By: #### L 500.4050, L100.0100, L501.9985, L500.4100, L501.9520 ####[facility] [address] [place], [address] Cholesterol in LDL [Mass/Vol] 68 mg/dL Normal 0-130 [facility] Comment on above: Performed By: #### L 500.4050, L100.0100, L501.9985, L500.4100, L501.9520 ####[facility] [address] [place], [address] Cholesterol in VLDL [Mass/Vol] 24 mg/dL Normal 5-40 [facility] Comment on above: Performed By: #### L 500.4050, L100.0100, L501.9985, L500.4100, L501.9520 ####[facility] [address] [place], [address] Triglyceride [Mass/Vol] 118 mg/dL Normal [facility] Comment on above: Result Comment: The drugs N-Acetylcysteine and Metamizole may falselydepress this assay.Serum Triglycerides Reference Interval Normal <150 mg/dL Borderline high 150 - 199 mg/dL High 200 - 499 mg/dL Very High > or = 500 mg/dL Performed By: #### L 500.4050, L100.0100, L501.9985, L500.4100, L501.9520 ####[facility] [address] [place], [address] Low density lipoprotein (LDL ) cholesterol measurementOrdered By: on 12-31-2023 Low density lipoprotein (LDL) cholesterol measurement 68 mg/dL 0-130 [facility] M8200.1000on 12-31-2023 M8200.1000 Normal Reference Ran ge = Negative MRSA DNA Nose Ql MARILEE+probe GeneXpert Instrument, PCR method MRSA PCR MRSA NEGATIVE Normal [facility] Comment on above: Performed By: #### M 8200.1000 ####[facility] [address] [place], [address] MR/CON.PCM.GIon 12-31-2023 MR/CON.PCM.GI Normal [facility] Magnesiumon 12-31-2023 Magnesium [Mass/Vol] 3.5 mg/dL High 1.6-2.6 [facility] Comment on above: Result Comment: Slig ht Hemolysis, Result may be falsely increased. Performed By: #### L 501.5200 ####[facility] [address] [facility] [place], [address] Magnesium measurementOrdered By: on 12-31-2023 Magnesium measurement 3.5 mg/dL High 1.6-2.6 [facility] Manual differential comment Minesh (Bld) [Interp]Ordered By: on 12-31-2023 Blood manual differential comment interpretation (narrative result) SCANNED [facility] Ovalocyte detectionOrdered B y: on 12-31-2023 Ovalocyte detection 1+ [facility] Pathologist review Minesh (Unsp spec) [Interp]Ordered By: Kanwal Aguilar on 12-31-2023 Review by pathologist Reviewed [facility] Platelets LM Ql (Bld)Ordered By: Kanwal Aguilar on 12-31-2023 Platelet estimate ADEQUATE ADEQ [facility] RESPIRATORY PANEL MOLECULARo n 12-31-2023 RP PANEL Normal [facility] Comment on above: Performed By: #### M 100.638 ####[facility] [address] [place], [place], [id number] TSH QnOrdered By: Kanwal Okeefe te on 12-31-2023 Serum or plasma thyroid stimulating hormone (TSH) measurement (units/volume) 2.700 uIU/mL 0.358-3.740 [facility] Thyroid Stim Hormone (TSH)on 12-31-2023 TSH 2.700 uIU/mL Normal 0.358-3.740 [facility] Comment on above: Performed By: #### L 500.4050, L100.0100, L501.9985, L500.4100, L501.9520 ####[facility] [address] [place], [place], [address] Triglycerides measurementOrd ered By: Kanwal Aguilar on 12-31-2023 Triglycerides measurement 118 mg/dL <199 [facility] Troponin IOrdered By: Kanwal Aguilar on 12-31-2023 Troponin I 3067 pg/mL High 3.0-54.0 [facility] Very low density lipoprotein (VLDL) cholesterol measurementOrdered By: Kanwal Aguilar on 12-31-2023 Very low density lipoprotein (VLDL) cholesterol measurement 24 mg/dL 5-40 [facility] 12 Lead EKGon 12-30-2023 12 Lead EKG Normal [facility] 12 Lead EKG Normal [facility] BNP (brain natriuretic pepti de measurement)Ordered By: Yifan Zepeda on 12-30-2023 BNP (brain natriuretic peptide measurement) 3619.4 pg/mL High 0-100 [facility] BNP,B-Type NATRIURETIC PEPTI Faiza 12-30-2023 Natriuretic peptide B (Bld) [Mass/Vol] 3619.4 pg/mL High 0-100 [facility] Comment on above: Performed By: #### L 503.6620 ####[facility] [address] [place], [address] Bacteria LM.HPF (Urine sed) [#/Area]Ordered By: Yifan Zepeda on 12-30-2023 Urine sediment bacteria count by microscopy (number/high power field) 4+ /hpf None Seen [facility] Bilirubin Test strip Ql (U)O rdered By: Yifan Zepeda on 12-30-2023 Urine total bilirubin detection by test strip 1 mg/dL High Negative [facility] Blood cultureOrdered By: Diana Zepeda on 12-30-2023 Blood culture No growth in 5 days. [facility] CBC W/Diff, Automatedon 12-13 Absolute Lymph 1.17 X10 3/uL Normal 0.83-4.51 [facility] Comment on above: Performed By: #### L 500.4050, BTS, L300.3900, L503.6005, L501.4020, L501.2450, L300.4310, L100.0100, M100.7900 ####[facility] [address] [place], [address] Absolute Neut 17.3 X10 3/uL High 2.0-7.7 [facility] Comment on above: Performed By: #### L 500.4050, BTS, L300.3900, L503.6005, L501.4020, L501.2450, L300.4310, L100.0100, M100.7900 ####[facility] [address] [place], [address] Basophils/100 WBC (Bld) 0.2 % Normal 0-1 [facility] Comment on above: Performed By: #### L 500.4050, BTS, L300.3900, L503.6005, L501.4020, L501.2450, L300.4310, L100.0100, M100.7900 ####[facility] [address] [place], [address] Eosinophils/100 WBC (Bld) 0.0 % Normal 0-5 [facility] Comment on above: Performed By: #### L 500.4050, BTS, L300.3900, L503.6005, L501.4020, L501.2450, L300.4310, L100.0100, M100.7900 ####[facility] [address] [place], [address] Erythrocyte distribution width (RBC) [Ratio] 12.9 % Normal 11.6-14.6 [facility] Comment on above: Performed By: #### L 500.4050, BTS, L300.3900, L503.6005, L501.4020, L501.2450, L300.4310, L100.0100, M100.7900 ####[facility] [address] [place], [address] Hematocrit (Bld) [Volume fraction] 45.1 % Normal 37-47 [facility] Comment on above: Performed By: #### L 500.4050, BTS, L300.3900, L503.6005, L501.4020, L501.2450, L300.4310, L100.0100, M100.7900 ####[facility] [address] [place], [address] Hemoglobin (Bld) [Mass/Vol] 14.8 g/dL Normal 12.0-15.0 [facility] Comment on above: Performed By: #### L 500.4050, BTS, L300.3900, L503.6005, L501.4020, L501.2450, L300.4310, L100.0100, M100.7900 ####[facility] [address] [place], [address] IG% 0.600 Normal 0.0-0.9 [facility] Comment on above: Result Comment: IG% - Immature Granulocytes (promyelocytes, myelocytes andmetamyelocytes) > 1% indicates that a LEFT SHIFT is Present. Performed By: #### L 500.4050, BTS, L300.3900, L503.6005, L501.4020, L501.2450, L300.4310, L100.0100, M100.7900 ####[facility] [address] [place], [address] Lymphocytes/100 WBC (Bld) 6.0 % Low 19-41 [facility] Comment on above: Performed By: #### L 500.4050, BTS, L300.3900, L503.6005, L501.4020, L501.2450, L300.4310, L100.0100, M100.7900 ####[facility] [address] [place], [address] MCH (RBC) [Entitic mass] 29.6 pg Normal 27.0-32.0 [facility] Comment on above: Performed By: #### L 500.4050, BTS, L300.3900, L503.6005, L501.4020, L501.2450, L300.4310, L100.0100, M100.7900 ####[facility] [address] [place], [address] MCHC (RBC) [Mass/Vol] 32.8 g/dL Normal 32-36 [facility] Comment on above: Performed By: #### L 500.4050, BTS, L300.3900, L503.6005, L501.4020, L501.2450, L300.4310, L100.0100, M100.7900 ####[facility] [address] [place], [address] MCV (RBC) [Entitic vol] 90.2 fL Normal 81-99 [facility] Comment on above: Performed By: #### L 500.4050, BTS, L300.3900, L503.6005, L501.4020, L501.2450, L300.4310, L100.0100, M100.7900 ####[facility] [address] [place], [address] Monocytes/100 WBC (Bld) 3.7 % Normal 0-10 [facility] Comment on above: Performed By: #### L 500.4050, BTS, L300.3900, L503.6005, L501.4020, L501.2450, L300.4310, L100.0100, M100.7900 ####[facility] [address] [place], [address] Neutrophils/100 WBC (Bld) 89.5 % High 47-70 [facility] Comment on above: Performed By: #### L 500.4050, BTS, L300.3900, L503.6005, L501.4020, L501.2450, L300.4310, L100.0100, M100.7900 ####[facility] [address] [place], [address] Nucleated RBC (Bld) [#/Vol] 0 10*3/uL Normal 0-5 [facility] Comment on above: Performed By: #### L 500.4050, BTS, L300.3900, L503.6005, L501.4020, L501.2450, L300.4310, L100.0100, M100.7900 ####[facility] [address] [place], [address] Platelet mean volume (Bld) [Entitic vol] 10.0 fL Normal 6.2-12.0 [facility] Comment on above: Performed By: #### L 500.4050, BTS, L300.3900, L503.6005, L501.4020, L501.2450, L300.4310, L100.0100, M100.7900 ####[facility] [address] [place], [address] Platelets (Bld) [#/Vol] 412 10*3/uL Normal 150-450 [facility] Comment on above: Performed By: #### L 500.4050, BTS, L300.3900, L503.6005, L501.4020, L501.2450, L300.4310, L100.0100, M100.7900 ####[facility] [address] [place], [address] RBC (Bld) [#/Vol] 5.00 10*6/uL Normal 4.2-5.4 [facility] Comment on above: Performed By: #### L 500.4050, BTS, L300.3900, L503.6005, L501.4020, L501.2450, L300.4310, L100.0100, M100.7900 ####[facility] [address] [place], [address] RDW SD 41.9 fl Normal 35.1-43.9 [facility] Comment on above: Performed By: #### L 500.4050, BTS, L300.3900, L503.6005, L501.4020, L501.2450, L300.4310, L100.0100, M100.7900 ####[facility] [address] [place], [address] WBC (Bld) [#/Vol] 19.4 10*3/uL High 4.4-11.0 [facility] Comment on above: Performed By: #### L 500.4050, BTS, L300.3900, L503.6005, L501.4020, L501.2450, L300.4310, L100.0100, M100.7900 ####[facility] [address] [place], [place], [id number] CTA Chst, Abd, Pel W and/or WOon 12-30-2023 CTA Chst, Abd, Pel W and/or WO Normal [facility] Clarity (U)Ordered By: Yifan Zepeda on 12-30-2023 Urine clarity Turbid Clear [facility] Color (U)Ordered By: Yifan granger on 12-30-2023 Urine color determination Yellow Yellow [facility] Comprehensive Metabolic Prof ilon 12-30-2023 Albumin [Mass/Vol] 4.1 g/dL Normal 3.2-5.0 [facility] Comment on above: Order Comment: 'TROP ' Serial specimen #1, #2 or #3: 1 Performed By: #### L 500.4050, BTS, L300.3900, L503.6005, L501.4020, L501.2450, L300.4310, L100.0100, M100.7900 ####[facility] [address] [place], [place], [address] Albumin/Globulin [Mass ratio] 1.0 {ratio} Normal 0.9-2.4 [facility] Comment on above: Order Comment: 'TROP ' Serial specimen #1, #2 or #3: 1 Performed By: #### L 500.4050, BTS, L300.3900, L503.6005, L501.4020, L501.2450, L300.4310, L100.0100, M100.7900 ####[facility] [address] [place], [address] ALK P 93 U/L Normal 45-117 [facility] Comment on above: Order Comment: 'TROP ' Serial specimen #1, #2 or #3: 1 Performed By: #### L 500.4050, BTS, L300.3900, L503.6005, L501.4020, L501.2450, L300.4310, L100.0100, M100.7900 ####[facility] [address] [place], [place], [id number] ALT [Catalytic activity/Vol] 38 U/L Normal 13-56 [facility] Comment on above: Order Comment: 'TROP ' Serial specimen #1, #2 or #3: 1 Performed By: #### L 500.4050, BTS, L300.3900, L503.6005, L501.4020, L501.2450, L300.4310, L100.0100, M100.7900 ####[facility] [address] [place], [place], [phone](528) AST [Catalytic activity/Vol] 36 U/L Normal 15-37 [facility] Comment on above: Order Comment: 'TROP ' Serial specimen #1, #2 or #3: 1 Performed By: #### L 500.4050, BTS, L300.3900, L503.6005, L501.4020, L501.2450, L300.4310, L100.0100, M100.7900 ####[facility] [address] [place], [place], [id number] Bilirubin [Mass/Vol] 0.70 mg/dL Normal 0.20-1.00 [facility] Comment on above: Order Comment: 'TROP ' Serial specimen #1, #2 or #3: 1 Result Comment: For patients on eltrombopag therapy, use of Dimension [place] TBIL is not recommended. Performed By: #### L 500.4050, BTS, L300.3900, L503.6005, L501.4020, L501.2450, L300.4310, L100.0100, M100.7900 ####[facility] [id number] [place], [place], [phone]) BUN/CRE 20.9 RATIO High 10-20 [facility] Comment on above: Order Comment: 'TROP ' Serial specimen #1, #2 or #3: 1 Performed By: #### L 500.4050, BTS, L300.3900, L503.6005, L501.4020, L501.2450, L300.4310, L100.0100, M100.7900 ####[facility] [id number] [place], [address] CA,Total 9.6 mg/dL Normal 8.5-10.1 [facility] Comment on above: Order Comment: 'TROP ' Serial specimen #1, #2 or #3: 1 Performed By: #### L 500.4050, BTS, L300.3900, L503.6005, L501.4020, L501.2450, L300.4310, L100.0100, M100.7900 ####[facility] [address] [place], [address] Chloride [Moles/Vol] 105 mmol/L Normal 98-107 [facility] Comment on above: Order Comment: 'TROP ' Serial specimen #1, #2 or #3: 1 Performed By: #### L 500.4050, BTS, L300.3900, L503.6005, L501.4020, L501.2450, L300.4310, L100.0100, M100.7900 ####[facility] [address] [place], [address] CO2 [Moles/Vol] 21.0 mmol/L Normal 21.0-32.0 [facility] Comment on above: Order Comment: 'TROP ' Serial specimen #1, #2 or #3: 1 Performed By: #### L 500.4050, BTS, L300.3900, L503.6005, L501.4020, L501.2450, L300.4310, L100.0100, M100.7900 ####[facility] [address] [place], [address] Creatinine [Mass/Vol] 1.96 mg/dL High 0.55-1.02 [facility] Comment on above: Order Comment: 'TROP ' Serial specimen #1, #2 or #3: 1 Result Comment: The validity of the calculated GFR GFRAA in patients over70 years has not been determined. Clinical correlation isessential. Performed By: #### L 500.4050, BTS, L300.3900, L503.6005, L501.4020, L501.2450, L300.4310, L100.0100, M100.7900 ####[facility] [address] [place], [place], [phone] ECRCL 25.36 ml/min Normal [facility] Comment on above: Order Comment: 'TROP ' Serial specimen #1, #2 or #3: 1 Performed By: #### L 500.4050, BTS, L300.3900, L503.6005, L501.4020, L501.2450, L300.4310, L100.0100, M100.7900 ####[facility] [address] [place], [place], [phone]) EST GFR - AA 32 mL/min Low >60 [facility] Comment on above: Order Comment: 'TROP ' Serial specimen #1, #2 or #3: 1 Result Comment: Afri can Macanese GFR Calc Performed By: #### L 500.4050, BTS, L300.3900, L503.6005, L501.4020, L501.2450, L300.4310, L100.0100, M100.7900 ####[facility] [address] [place], [place], [phone]) GAP 14 Normal 5-15 [facility] Comment on above: Order Comment: 'TROP ' Serial specimen #1, #2 or #3: 1 Performed By: #### L 500.4050, BTS, L300.3900, L503.6005, L501.4020, L501.2450, L300.4310, L100.0100, M100.7900 ####[facility] [address] [place], [place], [phone]) GFR/1.73 sq M.predicted among non-blacks MDRD (S/P/Bld) [Vol rate/Area] 27 mL/min/{1.73_m2} Low >60 [facility] Comment on above: Order Comment: 'TROP ' Serial specimen #1, #2 or #3: 1 Result Comment: Non- GFR Calc Performed By: #### L 500.4050, BTS, L300.3900, L503.6005, L501.4020, L501.2450, L300.4310, L100.0100, M100.7900 ####[facility] [address] [place], [address] Globulin (S) [Mass/Vol] 4.1 g/dL Normal 2.2-4.2 [facility] Comment on above: Order Comment: 'TROP ' Serial specimen #1, #2 or #3: 1 Performed By: #### L 500.4050, BTS, L300.3900, L503.6005, L501.4020, L501.2450, L300.4310, L100.0100, M100.7900 ####[facility] [address] [place], [address] Glucose [Mass/Vol] 405 mg/dL High 74-106 [facility] Comment on above: Order Comment: 'TROP ' Serial specimen #1, #2 or #3: 1 Result Comment: Gluc ose result greater than or equal to 200 mg/dLsuggests DIABETES MELLITUS per A.D.A. criteria. Performed By: #### L 500.4050, BTS, L300.3900, L503.6005, L501.4020, L501.2450, L300.4310, L100.0100, M100.7900 ####[facility] [address] [place], [address] Potassium [Moles/Vol] 3.8 mmol/L Normal 3.5-5.1 [facility] Comment on above: Order Comment: 'TROP ' Serial specimen #1, #2 or #3: 1 Performed By: #### L 500.4050, BTS, L300.3900, L503.6005, L501.4020, L501.2450, L300.4310, L100.0100, M100.7900 ####[facility] [address] [place], [address] Sodium [Moles/Vol] 140 mmol/L Normal 136-145 [facility] Comment on above: Order Comment: 'TROP ' Serial specimen #1, #2 or #3: 1 Performed By: #### L 500.4050, BTS, L300.3900, L503.6005, L501.4020, L501.2450, L300.4310, L100.0100, M100.7900 ####[facility] [address] [place], [address] T PROT 8.2 g/dL Normal 6.4-8.2 [facility] Comment on above: Order Comment: 'TROP ' Serial specimen #1, #2 or #3: 1 Performed By: #### L 500.4050, BTS, L300.3900, L503.6005, L501.4020, L501.2450, L300.4310, L100.0100, M100.7900 ####[facility] [address] [place], [address] Urea nitrogen [Mass/Vol] 41 mg/dL High 7-18 [facility] Comment on above: Order Comment: 'TROP ' Serial specimen #1, #2 or #3: 1 Performed By: #### L 500.4050, BTS, L300.3900, L503.6005, L501.4020, L501.2450, L300.4310, L100.0100, M100.7900 ####[facility] [address] [place], [address] Consultation - Intensiviston 12-30-2023 Consultation - Chief Dog License Inspector Normal [facility] Echo Complete W/ Contraston 12-30-2023 Echo Complete W/ Contrast Normal [facility] Emergency Department Summary on 12-30-2023 Emergency Department Summary Normal [facility] Glucose Ql (U)Ordered By: Ciro Zepeda on 12-30-2023 Urine glucose detection 50 mg/dl High Normal [facility] H AND P Exam - Hospitaliston 12-30-2023 H&P Exam - Hospitalist Normal [facility] HH, Hemoglobin AND Hematocri ton 12-30-2023 Hematocrit (Bld) [Volume fraction] 43.4 % Normal 37-47 [facility] Comment on above: Performed By: #### L 100.0600 ####[facility] [address] [place], [place], [phone] Hemoglobin (Bld) [Mass/Vol] 13.5 g/dL Normal 12.0-15.0 [facility] Comment on above: Performed By: #### L 100.0600 ####[facility] [address] [place], [place], [phone] Hyaline casts LM.LPF (Urine sed) [#/Area]Ordered By: Yifan Zepeda on 12-30-2023 Urine sediment hyaline cast count by microscopy (number/low power field) 0-5 SEEN /lpf 0-5 [facility] International normalized rat io (INR) calculationOrdered By: Yifan Zepeda on 12-30-2023 International normalized ratio (INR) calculation 1.1 [facility] L501.4020on 12-30-2023 TROPONIN-I HS 2585 pg/mL Invalid Interpretation Code 3.0-54.0 [facility] Comment on above: Order Comment: 'TROP ' Serial specimen #1, #2 or #3: 2 Result Comment: Crit ical Result(s) Called at: 22:10:33 12/30/2023 by: TOÑO JOSEPH. Results read back by same. Please Note: New Test Units and Gender Specific Reference Ranges. For more information see Policy Stat Procedure [place] High Sensitivity Troponin (TNIH) and attachments. Performed By: #### L 501.4020 ####[facility] [address] [place], [place], [phone] TROPONIN-I HS 2872 pg/mL Invalid Interpretation Code 3.0-54.0 [facility] Comment on above: Order Comment: 'TROP ' Serial specimen #1, #2 or #3: 1 Result Comment: Crit ical Result(s) Called at: 20:22:43 12/30/2023 by: TOÑO TO MARTELL2. Results read back by same. Please Note: New Test Units and Gender Specific Reference Ranges. For more information see Policy Stat Procedure [place] High Sensitivity Troponin (TNIH) and attachments. Performed By: #### L 500.4050, BTS, L300.3900, L503.6005, L501.4020, L501.2450, L300.4310, L100.0100, M100.7900 ####[facility] [address] [place], [place], [phone] Lactic Acidon 12-30-2023 Lactate [Moles/Vol] 3.2 mmol/L Invalid Interpretation Code 0.4-1.9 [facility] Comment on above: Order Comment: Y Result Comment: Crit ical Result(s) Called at: 20:24:24 12/30/2023 by: TOÑO TO MARTELL2. Results read back by same. Performed By: #### L 500.4050, BTS, L300.3900, L503.6005, L501.4020, L501.2450, L300.4310, L100.0100, M100.7900 ####[facility] [address] [facility] [place], [place], [phone] Lactic acid measurementOrder ed By: Yifan Zepeda on 12-30-2023 Lactic acid measurement 3.2 mmol/L High 0.4-2.0 [facility] Leukocyte esterase Test stri p Ql (U)Ordered By: Yifan Zepeda on 12-30-2023 Urine leukocyte esterase detection by dipstick 500 /ul High Negative [facility] Lipaseon 12-30-2023 Lipase [Catalytic activity/Vol] 20 U/L Normal 13-75 [facility] Comment on above: Order Comment: 'TROP ' Serial specimen #1, #2 or #3: 1 Result Comment: La aguilar note:LIPASE revised reference range effective 22.New Lipase methodology. Expected to produce lower valuesthan the previous assay method.NEW Reference Range: 13 - 75 U/L Performed By: #### L 500.4050, BTS, L300.3900, L503.6005, L501.4020, L501.2450, L300.4310, L100.0100, M100.7900 ####[facility] [address] [place], [place], [phone] Lower GI hemoglobin IA Ql (S tl)Ordered By: Yifan Zepeda on 12-30-2023 Stool gastrointestinal hemoglobin detection by immunologic method Positive Abnormal [facility] M100.678on 12-30-2023 M100.678 Pending SARS-CoV-2 (COVID 19) Negative INFLUENZA A Negative INFLUENZA B Negative RSV PCR Negative Normal [facility] Comment on above: Performed By: #### M 100.2200, M100.678 ####[facility] [address] [place], [place], [phone] Magnesiumon 12-30-2023 Magnesium [Mass/Vol] 1.3 mg/dL Low 1.6-2.6 [facility] Comment on above: Order Comment: Comme nts: may add to ED labs Result Comment: Slig ht Hemolysis, Result may be falsely increased. Performed By: #### L 501.5200 ####[facility] [address] [place], [place], [phone] Microscopic analysis of urin e for red blood cells (RBC)Ordered By: Yifan Zepeda on 12-30-2023 Microscopic analysis of urine for red blood cells (RBC) 5-10 SEEN /hpf 0-5 [facility] Mucus LM Ql (Urine sed)Order ed By: Yifan Zepeda on 12-30-2023 Mucus detection in urine sediment by light microscopy 0 SEEN /hpf [facility] Partial Thromboplast Timeon 12-30-2023 aPTT Coag (Bld) [Time] 26.1 s Normal 24.1-36.2 [facility] Comment on above: Performed By: #### L 500.4050, BTS, L300.3900, L503.6005, L501.4020, L501.2450, L300.4310, L100.0100, M100.7900 ####[facility] [address] [place], [address] Protein Test strip Ql (U)Ord ered By: Yifan Zepeda on 12-30-2023 Urine protein assay by test strip, semi-quantitative 100 mg/dl High Negative [facility] Prothrombin Time w/INRon INR Coag (PPP) [Relative time] 1.1 {INR} Normal [facility] Comment on above: Performed By: #### L 500.4050, BTS, L300.3900, L503.6005, L501.4020, L501.2450, L300.4310, L100.0100, M100.7900 ####[facility] [address] [place], [place], [phone] PT Coag (PPP) [Time] 14.4 s Normal 11.7-14.9 [facility] Comment on above: Performed By: #### L 500.4050, BTS, L300.3900, L503.6005, L501.4020, L501.2450, L300.4310, L100.0100, M100.7900 ####[facility] [address] [place], [place], [phone] Prothrombin timeOrdered By: Yifan Zepeda on 12-30-2023 Prothrombin time 14.4 SECONDS 11.7-14.9 [facility] Specific gravity (U) [Rel de nsity]Ordered By: Yifan Zepeda on 12-30-2023 Urine specific gravity measurement 1.025 1.002-1.030 [facility] Squamous epithelial cells de tection in urine sediment by light microscopyOrdered By: Yifan Zepeda on 12-30-2023 Squamous epithelial cells detection in urine sediment by light microscopy 0-5 SEEN /hpf 0-5 [facility] Stool Occult Blood iFOBon STOB Positive Normal [facility] Comment on above: Performed By: #### L 500.4050, BTS, L300.3900, L503.6005, L501.4020, L501.2450, L300.4310, L100.0100, M100.7900 ####[facility] [address] [place], [place], [address] Type AND Screenon 12-30-2023 Ab SCREEN GEL Negative Normal [facility] Comment on above: Order Comment: A Performed By: #### L 500.4050, BTS, L300.3900, L503.6005, L501.4020, L501.2450, L300.4310, L100.0100, M100.7900 ####[facility] [address] [place], [place], [phone] ABO and Rh group Nom (Bld) Blood group O Rh(D) positive Normal [facility] Comment on above: Order Comment: A Performed By: #### L 500.4050, BTS, L300.3900, L503.6005, L501.4020, L501.2450, L300.4310, L100.0100, M100.7900 ####[facility] [address] [place], [place], [phone] Urinalysis, Completeon 12-29 RBC 5-10 SEEN Normal 0-5 [facility] Comment on above: Order Comment: CLEAN CATCH Performed By: #### L 400.0001 ####[facility] [address] [place], [place], [phone] EPI,RENAL 0-5 SEEN Normal 0-5 [facility] Comment on above: Order Comment: CLEAN CATCH Performed By: #### L 400.0001 ####[facility] [address] [place], [address] EPI,SQUAMOUS 0-5 SEEN Normal 5-10 [facility] Comment on above: Order Comment: CLEAN CATCH Performed By: #### L 400.0001 ####[facility] [address] [place], [address] WBC 50-100 SEEN Normal 0-5 [facility] Comment on above: Order Comment: CLEAN CATCH Performed By: #### L 400.0001 ####[facility] [address] [place], [address] BACTERIA 4+ /hpf Normal None Seen [facility] Comment on above: Order Comment: CLEAN CATCH Performed By: #### L 400.0001 ####[facility] [address] [place], [address] CAST,HYALINE 0-5 SEEN Normal 0-5 [facility] Comment on above: Order Comment: CLEAN CATCH Performed By: #### L 400.0001 ####[facility] [address] [place], [address] Mucus Ql (Urine sed) 0 SEEN Normal [facility] Comment on above: Order Comment: CLEAN CATCH Performed By: #### L 400.0001 ####[facility] [address] [place], [address] Urine blood detectionOrdered By: Yifan Zepeda on 12-30-2023 Urine blood detection 25 /ul High Negative [facility] Urine cultureOrdered By: Diana Zepeda on 12-30-2023 Urine culture Presumptive E. coli Abnormal [facility] Urine ketones detection by t est stripOrdered By: Yifan Zepeda on 12-30-2023 Urine ketones detection by test strip Negative Negative [facility] Urobilinogen Ql (U)Ordered B y: Yifan Zepeda on 12-30-2023 Urine urobilinogen measurement Normal mg/dl Normal [facility] White blood cell countOrdere d By: Yifan Zepeda on 12-30-2023 White blood cell count 50-100 SEEN /hpf 0-5 [facility] aPTT Coag (PPP) [Time]Ordere d By: Yifan Zepeda on 12-30-2023 Activated partial thromboplastin time (aPTT) in platelet poor plasma by coagulation a 26.1 Seconds 24.1-36.2 [facility] pH (U)Ordered By: Yifan obrien on 12-30-2023 Urine pH 5.0 5.0 - 8.0 [facility] ANCAon 10-16-2023 Atypical pANCA <1:20 Normal Neg:<1:20 [facility] Comment on above: Result Comment: The atypical pANCA pattern has been observed in asignificant percentage of patients with ulcerative colitis,primary sclerosing cholangitis and autoimmune hepatitis.Performed at: [facility] [id number] Director: Avni Valles PhD, Phone: [phone] Performed By: #### L 501.6710, L3200.0500, L500.4050, L3100.5440, L3300.1200, L100.0100, L101.9900, L501.2450, L500.4100 ####[facility] [address] [place], [place], [phone] Cytoplasmic Ab <1:20 Normal Neg:<1:20 [facility] Comment on above: Performed By: #### L 501.6710, L3200.0500, L500.4050, L3100.5440, L3300.1200, L100.0100, L101.9900, L501.2450, L500.4100 ####[facility] [address] [place], [place], [phone] Perinuclear Ab. <1:20 Normal Neg:<1:20 [facility] Comment on above: Result Comment: The presence of positive fluorescence exhibiting P-ANCA orC-ANCA patterns alone is not specific for the diagnosis ofWegener's Granulomatosis (WG) or microscopic polyangiitis.Decisions about treatment should not be based solely onANCA IFA results. The International ANCA Group Consensusrecommends follow up testing of positive sera with both OK-3 and MPO-ANCA enzyme immunoassays. As many as 5% serumsamples are positive only by EIA. Ref. AM J Clin Prpuzx6413;111:507-513. Performed By: #### L 501.6710, L3200.0500, L500.4050, L3100.5440, L3300.1200, L100.0100, L101.9900, L501.2450, L500.4100 ####[facility] [address] [place], [address] IgG Subclasseson 10-16-2023 IgG, SUBCLASS 1 548 mg/dL Normal 248-810 [facility] Comment on above: Performed By: #### L 501.6710, L3200.0500, L500.4050, L3100.5440, L3300.1200, L100.0100, L101.9900, L501.2450, L500.4100 ####[facility] [address] [place], [address] IgG, SUBCLASS 2 464 mg/dL Normal 130-555 [facility] Comment on above: Performed By: #### L 501.6710, L3200.0500, L500.4050, L3100.5440, L3300.1200, L100.0100, L101.9900, L501.2450, L500.4100 ####[facility] [address] [place], [address] IgG, SUBCLASS 3 32 mg/dL Normal 15-102 [facility] Comment on above: Performed By: #### L 501.6710, L3200.0500, L500.4050, L3100.5440, L3300.1200, L100.0100, L101.9900, L501.2450, L500.4100 ####[facility] [address] [place], [address] IgG, SUBCLASS 4 69 mg/dL Normal 2-96 [facility] Comment on above: Performed By: #### L 501.6710, L3200.0500, L500.4050, L3100.5440, L3300.1200, L100.0100, L101.9900, L501.2450, L500.4100 ####[facility] [address] [place], [place], [phone] IGG,QUANT 1117 mg/dL Normal 586-1602 [facility] Comment on above: Performed By: #### L 501.6710, L3200.0500, L500.4050, L3100.5440, L3300.1200, L100.0100, L101.9900, L501.2450, L500.4100 ####[facility] [address] [place], [place], [address] NORMA Comprehensive Panelon NORMA TABLE Comment Normal . [facility] Comment on above: Result Comment: Auto antibody Disease Association --------- Condition Frequency ---------Antinuclear Antibody, SLE, mixed connectiveDirect (NORMA-D) tissue diseases ---------dsDNA SLE 40 - 60% ---------Chromatin Drug induced SLE 90% SLE 48 - 97% ---------SSA (Ro) SLE 25 - 35% Sjogren's Syndrome 40 - 70% Lupus 100% ---------SSB (La) SLE 10% Sjogren's Syndrome 30% ---------Sm (anti-Dickson) SLE 15 - 30% ---------SEED LABORATORY TECHNICIAN Mixed Connective Tissue Disease 95%(U1 nRNP, SLE 30 - 50%anti-ribonucleoprotein) Polymyositis and/or Dermatomyositis 20% ---------Scl-70 (antiDNA Scleroderma (diffuse) 20 - 35%topoisomerase) Crest 13% ---------Angelica-1 Polymyositis and/or Dermatomyositis 20 - 40% ---------Centromere B Scleroderma - Crest variant 80%Performed at: [facility] [id number] [place], [place] [id number] Director: Avni Valles PhD, Phone: [phone] Performed By: #### L 501.6710, L3200.0500, L500.4050, L3100.5440, L3300.1200, L100.0100, L101.9900, L501.2450, L500.4100 ####[facility] [address] [place], [address] ANTI-CENT B AB <0.2 Normal 0.0-0.9 [facility] Comment on above: Performed By: #### L 501.6710, L3200.0500, L500.4050, L3100.5440, L3300.1200, L100.0100, L101.9900, L501.2450, L500.4100 ####[facility] [address] [place], [address] ANTI-DNA (DS)AB 2 IU/mL Normal 0-9 [facility] Comment on above: Result Comment: Nega tive <5 Equivocal 5 - 9 Positive >9 Performed By: #### L 501.6710, L3200.0500, L500.4050, L3100.5440, L3300.1200, L100.0100, L101.9900, L501.2450, L500.4100 ####[facility] [address] [place], [place], [phone] ANTI-ANGELICA-1 <0.2 Normal 0.0-0.9 [facility] Comment on above: Performed By: #### L 501.6710, L3200.0500, L500.4050, L3100.5440, L3300.1200, L100.0100, L101.9900, L501.2450, L500.4100 ####[facility] [address] [place], [address] ANTI-SS-A < 0.2 Normal 0.0-0.9 [facility] Comment on above: Performed By: #### L 501.6710, L3200.0500, L500.4050, L3100.5440, L3300.1200, L100.0100, L101.9900, L501.2450, L500.4100 ####[facility] [address] [place], [place], [phone] ANTI-SS-B < 0.2 Normal 0.0-0.9 [facility] Comment on above: Performed By: #### L 501.6710, L3200.0500, L500.4050, L3100.5440, L3300.1200, L100.0100, L101.9900, L501.2450, L500.4100 ####[facility] [address] [place], [place], [phone] ANTICHROMATIN <0.2 Normal 0.0-0.9 [facility] Comment on above: Performed By: #### L 501.6710, L3200.0500, L500.4050, L3100.5440, L3300.1200, L100.0100, L101.9900, L501.2450, L500.4100 ####[facility] [address] [place], [place], [phone] ANTISCLERODERM <0.2 Normal 0.0-0.9 [facility] Comment on above: Performed By: #### L 501.6710, L3200.0500, L500.4050, L3100.5440, L3300.1200, L100.0100, L101.9900, L501.2450, L500.4100 ####[facility] [address] [place], [place], [phone] SEED LABORATORY TECHNICIAN Ab <0.2 Normal 0.0-0.9 [facility] Comment on above: Performed By: #### L 501.6710, L3200.0500, L500.4050, L3100.5440, L3300.1200, L100.0100, L101.9900, L501.2450, L500.4100 ####[facility] [address] [place], [place], [phone] DICKSON Ab <0.2 Normal 0.0-0.9 [facility] Comment on above: Performed By: #### L 501.6710, L3200.0500, L500.4050, L3100.5440, L3300.1200, L100.0100, L101.9900, L501.2450, L500.4100 ####[facility] [address] [place], [address] CBC W/Diff, Automatedon 09-13 Absolute Lymph 2.45 X10 3/uL Normal 0.83-4.51 [facility] Comment on above: Order Comment: WALLPAPER PRINTER HELPER.ED GAR ORDERED BMP WELL Performed By: #### L 501.6710, L3200.0500, L500.4050, L3100.5440, L3300.1200, L100.0100, L101.9900, L501.2450, L500.4100 ####[facility] [address] [place], [address] Absolute Neut 6.4 X10 3/uL Normal 2.0-7.7 [facility] Comment on above: Order Comment: WALLP[employer]ER PRINTER HELPER.ED GAR ORDERED BMP WELL Performed By: #### L 501.6710, L3200.0500, L500.4050, L3100.5440, L3300.1200, L100.0100, L101.9900, L501.2450, L500.4100 ####[facility] [address] [place], [address] Basophils/100 WBC (Bld) 0.3 % Normal 0-1 [facility] Comment on above: Order Comment: WALLP[employer]ER PRINTER HELPER.ED GAR ORDERED BMP WELL Performed By: #### L 501.6710, L3200.0500, L500.4050, L3100.5440, L3300.1200, L100.0100, L101.9900, L501.2450, L500.4100 ####[facility] [address] [place], [address] Eosinophils/100 WBC (Bld) 3.0 % Normal 0-5 [facility] Comment on above: Order Comment: WALLP[employer]ER [employer]INTER HELPER.ED GAR ORDERED BMP WELL Performed By: #### L 501.6710, L3200.0500, L500.4050, L3100.5440, L3300.1200, L100.0100, L101.9900, L501.2450, L500.4100 ####[facility] [address] [place], [address] Erythrocyte distribution width (RBC) [Ratio] 12.7 % Normal 11.6-14.6 [facility] Comment on above: Order Comment: WALLP[employer] HELPER.ED GAR ORDERED BMP WELL Performed By: #### L 501.6710, L3200.0500, L500.4050, L3100.5440, L3300.1200, L100.0100, L101.9900, L501.2450, L500.4100 ####[facility] [address] [facility] [facility] [place], [address] Hematocrit (Bld) [Volume fraction] 41.4 % Normal 37-47 [facility] Comment on above: Order Comment: WALLPAPER PRINTER HELPER.ED GAR ORDERED BMP WELL Performed By: #### L 501.6710, L3200.0500, L500.4050, L3100.5440, L3300.1200, L100.0100, L101.9900, L501.2450, L500.4100 ####[facility] [address] [facility] [place], [address] Hemoglobin (Bld) [Mass/Vol] 12.7 g/dL Normal 12.0-15.0 [facility] Comment on above: Order Comment: WALLPAPER PRINTER HELPER.ED GAR ORDERED BMP WELL Performed By: #### L 501.6710, L3200.0500, L500.4050, L3100.5440, L3300.1200, L100.0100, L101.9900, L501.2450, L500.4100 ####[facility] [address] [place], [address] IG% 0.300 Normal 0.0-0.9 [facility] Comment on above: Order Comment: WALLPAPER PRINTER HELPER.ED GAR ORDERED BMP WELL Result Comment: IG% - Immature Granulocytes (promyelocytes, myelocytes andmetamyelocytes) > 1% indicates that a LEFT SHIFT is Present. Performed By: #### L 501.6710, L3200.0500, L500.4050, L3100.5440, L3300.1200, L100.0100, L101.9900, L501.2450, L500.4100 ####[facility] [address] [place], [place], [phone] Lymphocytes/100 WBC (Bld) 25.4 % Normal 19-41 [facility] Comment on above: Order Comment: WALLPAPER PRINTER HELPER.ED GAR ORDERED BMP WELL Performed By: #### L 501.6710, L3200.0500, L500.4050, L3100.5440, L3300.1200, L100.0100, L101.9900, L501.2450, L500.4100 ####[facility] [address] [place], [place], [phone] MCH (RBC) [Entitic mass] 29.3 pg Normal 27.0-32.0 [facility] Comment on above: Order Comment: WALLPAPER PRINTER HELPER.ED GAR ORDERED BMP WELL Performed By: #### L 501.6710, L3200.0500, L500.4050, L3100.5440, L3300.1200, L100.0100, L101.9900, L501.2450, L500.4100 ####[facility] [address] [facility] [place], [address] MCHC (RBC) [Mass/Vol] 30.7 g/dL Low 32-36 [facility] Comment on above: Order Comment: WALLPAPER PRINTER HELPER.ED GAR ORDERED BMP WELL Performed By: #### L 501.6710, L3200.0500, L500.4050, L3100.5440, L3300.1200, L100.0100, L101.9900, L501.2450, L500.4100 ####[facility] [address] [place], [address] MCV (RBC) [Entitic vol] 95.4 fL Normal 81-99 [facility] Comment on above: Order Comment: WALLPAPER PRINTER HELPER.ED GAR ORDERED BMP WELL Performed By: #### L 501.6710, L3200.0500, L500.4050, L3100.5440, L3300.1200, L100.0100, L101.9900, L501.2450, L500.4100 ####[facility] [address] [place], [place], [phone] Monocytes/100 WBC (Bld) 4.6 % Normal 0-10 [facility] Comment on above: Order Comment: WALLPAPER PRINTER HELPER.ED GAR ORDERED BMP WELL Performed By: #### L 501.6710, L3200.0500, L500.4050, L3100.5440, L3300.1200, L100.0100, L101.9900, L501.2450, L500.4100 ####[facility] [address] [place], [address] Neutrophils/100 WBC (Bld) 66.4 % Normal 47-70 [facility] Comment on above: Order Comment: WALLPAPER PRINTER HELPER.ED GAR ORDERED BMP WELL Performed By: #### L 501.6710, L3200.0500, L500.4050, L3100.5440, L3300.1200, L100.0100, L101.9900, L501.2450, L500.4100 ####[facility] [address] [place], [address] Nucleated RBC (Bld) [#/Vol] 0 10*3/uL Normal 0-5 [facility] Comment on above: Order Comment: WALLPAPER PRINTER HELPER.ED GAR ORDERED BMP WELL Performed By: #### L 501.6710, L3200.0500, L500.4050, L3100.5440, L3300.1200, L100.0100, L101.9900, L501.2450, L500.4100 ####[facility] [address] [place], [address] Platelet mean volume (Bld) [Entitic vol] 9.6 fL Normal 6.2-12.0 [facility] Comment on above: Order Comment: WALLPAPER PRINTER HELPER.ED GAR ORDERED BMP WELL Performed By: #### L 501.6710, L3200.0500, L500.4050, L3100.5440, L3300.1200, L100.0100, L101.9900, L501.2450, L500.4100 ####[facility] [address] [place], [place], [phone] Platelets (Bld) [#/Vol] 303 10*3/uL Normal 150-450 [facility] Comment on above: Order Comment: WALLPAPER PRINTER HELPER.ED GAR ORDERED BMP WELL Performed By: #### L 501.6710, L3200.0500, L500.4050, L3100.5440, L3300.1200, L100.0100, L101.9900, L501.2450, L500.4100 ####[facility] [address] [place], [place], [phone] RBC (Bld) [#/Vol] 4.34 10*6/uL Normal 4.2-5.4 [facility] Comment on above: Order Comment: WALLPAPER PRINTER HELPER.ED GAR ORDERED BMP WELL Performed By: #### L 501.6710, L3200.0500, L500.4050, L3100.5440, L3300.1200, L100.0100, L101.9900, L501.2450, L500.4100 ####[facility] [address] [place], [place], [phone] RDW SD 44.6 fl High 35.1-43.9 [facility] Comment on above: Order Comment: WALLPAPER PRINTER HELPER.ED GAR ORDERED BMP WELL Performed By: #### L 501.6710, L3200.0500, L500.4050, L3100.5440, L3300.1200, L100.0100, L101.9900, L501.2450, L500.4100 ####[facility] [address] [place], [place], [phone] WBC (Bld) [#/Vol] 9.7 10*3/uL Normal 4.4-11.0 [facility] Comment on above: Order Comment: WALLPAPER PRINTER HELPER.ED GAR ORDERED BMP WELL Performed By: #### L 501.6710, L3200.0500, L500.4050, L3100.5440, L3300.1200, L100.0100, L101.9900, L501.2450, L500.4100 ####[facility] [address] [place], [place], [phone] CRPon 10-11-2023 C-REACTIVE PROT < 2.90 Normal 0.0-3.0 [facility] Comment on above: Order Comment: WALLPAPER PRINTER HELPER.ED GAR ORDERED BMP WELL Result Comment: C-Re active Protein (CRP) provides useful information for thediagnosis, therapy and monitoring of inflammatory processesand associated diseases. For the evaluation of Relative Riskfor Cardiovascular Disease, a High Sensitivity CRP (HSCRP)should be ordered. Performed By: #### L 501.6710, L3200.0500, L500.4050, L3100.5440, L3300.1200, L100.0100, L101.9900, L501.2450, L500.4100 ####[facility] [address] [place], [place], [phone] Comprehensive Metabolic Prof ilon 10-11-2023 Albumin [Mass/Vol] 4.0 g/dL Normal 3.2-5.0 [facility] Comment on above: Order Comment: WALLPAPER PRINTER HELPER.ED GAR ORDERED BMP WELL Performed By: #### L 501.6710, L3200.0500, L500.4050, L3100.5440, L3300.1200, L100.0100, L101.9900, L501.2450, L500.4100 ####[facility] [address] [place], [address] Albumin/Globulin [Mass ratio] 1.0 {ratio} Normal 0.9-2.4 [facility] Comment on above: Order Comment: WALLPAPER PRINTER HELPER.ED GAR ORDERED BMP WELL Performed By: #### L 501.6710, L3200.0500, L500.4050, L3100.5440, L3300.1200, L100.0100, L101.9900, L501.2450, L500.4100 ####[facility] [address] [place], [address] ALK P 93 U/L Normal 45-117 [facility] Comment on above: Order Comment: WALLPAPER PRINTER HELPER.ED GAR ORDERED BMP WELL Performed By: #### L 501.6710, L3200.0500, L500.4050, L3100.5440, L3300.1200, L100.0100, L101.9900, L501.2450, L500.4100 ####[facility] [address] [place], [address] ALT [Catalytic activity/Vol] 14 U/L Normal 13-56 [facility] Comment on above: Order Comment: WALLPAPER PRINTER HELPER.ED GAR ORDERED BMP WELL Performed By: #### L 501.6710, L3200.0500, L500.4050, L3100.5440, L3300.1200, L100.0100, L101.9900, L501.2450, L500.4100 ####[facility] [address] [place], [address] AST [Catalytic activity/Vol] 16 U/L Normal 15-37 [facility] Comment on above: Order Comment: WALLPAPER PRINTER HELPER.ED GAR ORDERED BMP WELL Performed By: #### L 501.6710, L3200.0500, L500.4050, L3100.5440, L3300.1200, L100.0100, L101.9900, L501.2450, L500.4100 ####[facility] [address] [place], [address] Bilirubin [Mass/Vol] 0.40 mg/dL Normal 0.20-1.00 [facility] Comment on above: Order Comment: WALLPAPER PRINTER HELPER.ED GAR ORDERED BMP WELL Result Comment: For patients on eltrombopag therapy, use of Dimension [place] TBIL is not recommended. Performed By: #### L 501.6710, L3200.0500, L500.4050, L3100.5440, L3300.1200, L100.0100, L101.9900, L501.2450, L500.4100 ####[facility] [address] [place], [place], [phone] BUN/CRE 32.7 RATIO High 10-20 [facility] Comment on above: Order Comment: WALLPAPER PRINTER HELPER.ED GAR ORDERED BMP WELL Performed By: #### L 501.6710, L3200.0500, L500.4050, L3100.5440, L3300.1200, L100.0100, L101.9900, L501.2450, L500.4100 ####[facility] [address] [place], [address] CA,Total 10.1 mg/dL Normal 8.5-10.1 [facility] Comment on above: Order Comment: WALLPAPER PRINTER HELPER.ED GAR ORDERED BMP WELL Performed By: #### L 501.6710, L3200.0500, L500.4050, L3100.5440, L3300.1200, L100.0100, L101.9900, L501.2450, L500.4100 ####[facility] [address] [place], [address] Chloride [Moles/Vol] 108 mmol/L High 98-107 [facility] Comment on above: Order Comment: WALLPAPER PRINTER HELPER.ED GAR ORDERED BMP WELL Performed By: #### L 501.6710, L3200.0500, L500.4050, L3100.5440, L3300.1200, L100.0100, L101.9900, L501.2450, L500.4100 ####[facility] [address] [place], [address] CO2 [Moles/Vol] 25.0 mmol/L Normal 21.0-32.0 [facility] Comment on above: Order Comment: WALLPAPER PRINTER HELPER.ED GAR ORDERED BMP WELL Performed By: #### L 501.6710, L3200.0500, L500.4050, L3100.5440, L3300.1200, L100.0100, L101.9900, L501.2450, L500.4100 ####[facility] [address] [place], [address] Creatinine [Mass/Vol] 1.04 mg/dL High 0.55-1.02 [facility] Comment on above: Order Comment: WALLPAPER PRINTER HELPER.ED GAR ORDERED BMP WELL Result Comment: The validity of the calculated GFR GFRAA in patients over70 years has not been determined. Clinical correlation isessential. Performed By: #### L 501.6710, L3200.0500, L500.4050, L3100.5440, L3300.1200, L100.0100, L101.9900, L501.2450, L500.4100 ####[facility] [address] [place], [address] EST GFR - AA 67 mL/min Normal >60 [facility] Comment on above: Order Comment: WALLPAPER PRINTER HELPER.ED GAR ORDERED BMP WELL Result Comment: Afri can Macanese GFR Calc Performed By: #### L 501.6710, L3200.0500, L500.4050, L3100.5440, L3300.1200, L100.0100, L101.9900, L501.2450, L500.4100 ####[facility] [address] [place], [address] GAP 6 Normal 5-15 [facility] Comment on above: Order Comment: WALLPAPER PRINTER HELPER.ED GAR ORDERED BMP WELL Performed By: #### L 501.6710, L3200.0500, L500.4050, L3100.5440, L3300.1200, L100.0100, L101.9900, L501.2450, L500.4100 ####[facility] [address] [place], [place], [phone] GFR/1.73 sq M.predicted among non-blacks MDRD (S/P/Bld) [Vol rate/Area] 56 mL/min/{1.73_m2} Low >60 [facility] Comment on above: Order Comment: WALLPAPER PRINTER HELPER.ED GAR ORDERED BMP WELL Result Comment: Non- GFR Calc Performed By: #### L 501.6710, L3200.0500, L500.4050, L3100.5440, L3300.1200, L100.0100, L101.9900, L501.2450, L500.4100 ####[facility] [address] [place], [place], [phone] Globulin (S) [Mass/Vol] 4.2 g/dL Normal 2.2-4.2 [facility] Comment on above: Order Comment: WALLPAPER PRINTER HELPER.ED GAR ORDERED BMP WELL Performed By: #### L 501.6710, L3200.0500, L500.4050, L3100.5440, L3300.1200, L100.0100, L101.9900, L501.2450, L500.4100 ####[facility] [address] [place], [address] Glucose [Mass/Vol] 67 mg/dL Low 74-106 [facility] Comment on above: Order Comment: WALLPAPER PRINTER HELPER.ED GAR ORDERED BMP WELL Performed By: #### L 501.6710, L3200.0500, L500.4050, L3100.5440, L3300.1200, L100.0100, L101.9900, L501.2450, L500.4100 ####[facility] [address] [place], [address] Potassium [Moles/Vol] 4.8 mmol/L Normal 3.5-5.1 [facility] Comment on above: Order Comment: WALLPAPER PRINTER HELPER.ED GAR ORDERED BMP WELL Performed By: #### L 501.6710, L3200.0500, L500.4050, L3100.5440, L3300.1200, L100.0100, L101.9900, L501.2450, L500.4100 ####[facility] [address] [place], [address] Sodium [Moles/Vol] 139 mmol/L Normal 136-145 [facility] Comment on above: Order Comment: WALLPAPER PRINTER HELPER.ED GAR ORDERED BMP WELL Performed By: #### L 501.6710, L3200.0500, L500.4050, L3100.5440, L3300.1200, L100.0100, L101.9900, L501.2450, L500.4100 ####[facility] [address] [place], [address] T PROT 8.2 g/dL Normal 6.4-8.2 [facility] Comment on above: Order Comment: WALLPAPER PRINTER HELPER.ED GAR ORDERED BMP WELL Performed By: #### L 501.6710, L3200.0500, L500.4050, L3100.5440, L3300.1200, L100.0100, L101.9900, L501.2450, L500.4100 ####[facility] [address] [place], [address] Urea nitrogen [Mass/Vol] 34 mg/dL High 7-18 [facility] Comment on above: Order Comment: WALLPAPER PRINTER HELPER.ED GAR ORDERED BMP WELL Performed By: #### L 501.6710, L3200.0500, L500.4050, L3100.5440, L3300.1200, L100.0100, L101.9900, L501.2450, L500.4100 ####[facility] [address] [place], [place], [phone] Erythrocyte Sed Rateon 10-10 SED RATE 23 mm/hr Normal 0-30 [facility] Comment on above: Order Comment: WALLPAPER PRINTER HELPER.ED GAR ORDERED BMP WELL Performed By: #### L 501.6710, L3200.0500, L500.4050, L3100.5440, L3300.1200, L100.0100, L101.9900, L501.2450, L500.4100 ####[facility] [address] [place], [place], [phone] Gastroenterology Visit Repor ton 10-11-2023 Gastroenterology Visit Report Normal [facility] Lipaseon 10-11-2023 Lipase [Catalytic activity/Vol] 31 U/L Normal 13-75 [facility] Comment on above: Order Comment: WALLPAPER PRINTER HELPER.ED GAR ORDERED BMP WELL Result Comment: La aguilar note:LIPASE revised reference range effective 22.New Lipase methodology. Expected to produce lower valuesthan the previous assay method.NEW Reference Range: 13 - 75 U/L Performed By: #### L 501.6710, L3200.0500, L500.4050, L3100.5440, L3300.1200, L100.0100, L101.9900, L501.2450, L500.4100 ####[facility] [address] [place], [place], [phone] Lipid Profileon 10-11-2023 Cholesterol [Mass/Vol] 204 mg/dL High 200 [facility] Comment on above: Order Comment: WALLPAPER PRINTER HELPER.ED GAR ORDERED BMP WELL Result Comment: <200 mg/dL Desirable 200-240 mg/dL Borderline >240 mg/dL High Risk Performed By: #### L 501.6710, L3200.0500, L500.4050, L3100.5440, L3300.1200, L100.0100, L101.9900, L501.2450, L500.4100 ####[facility] [address] [place], [address] Cholesterol in HDL [Mass/Vol] 74 mg/dL Normal [facility] Comment on above: Order Comment: WALLPAPER PRINTER HELPER.ED GAR ORDERED BMP WELL Result Comment: The drugs N-Acetylcysteine and Metamizole may falselydepress this assay. Reference Range HDL <40 mg/dL Low HDL Cholesterol HDL >or= 60 mg/dL High HDL Cholesterol Performed By: #### L 501.6710, L3200.0500, L500.4050, L3100.5440, L3300.1200, L100.0100, L101.9900, L501.2450, L500.4100 ####[facility] [address] [place], [address] Cholesterol in LDL [Mass/Vol] 95 mg/dL Normal 0-130 [facility] Comment on above: Order Comment: WALLPAPER PRINTER HELPER.ED GAR ORDERED BMP WELL Performed By: #### L 501.6710, L3200.0500, L500.4050, L3100.5440, L3300.1200, L100.0100, L101.9900, L501.2450, L500.4100 ####[facility] [address] [place], [address] Cholesterol in VLDL [Mass/Vol] 35 mg/dL Normal 5-40 [facility] Comment on above: Order Comment: WALLPAPER PRINTER HELPER.ED GAR ORDERED BMP WELL Performed By: #### L 501.6710, L3200.0500, L500.4050, L3100.5440, L3300.1200, L100.0100, L101.9900, L501.2450, L500.4100 ####[facility] [address] [place], [address] Triglyceride [Mass/Vol] 176 mg/dL Normal [facility] Comment on above: Order Comment: WALLPAPER PRINTER HELPER.ED GAR ORDERED BMP WELL Result Comment: The drugs N-Acetylcysteine and Metamizole may falselydepress this assay.Serum Triglycerides Reference Interval Normal <150 mg/dL Borderline high 150 - 199 mg/dL High 200 - 499 mg/dL Very High > or = 500 mg/dL Performed By: #### L 501.6710, L3200.0500, L500.4050, L3100.5440, L3300.1200, L100.0100, L101.9900, L501.2450, L500.4100 ####[facility] [address] [place], [address] Basic Metabolic Profile (BMP )on 09-20-2023 BUN/CRE 40.4 RATIO High 10-20 [facility] Comment on above: Performed By: #### L 100.0100, L500.2500 ####[facility] [address] [place], [address] CA,Total 9.0 mg/dL Normal 8.5-10.1 [facility] Comment on above: Performed By: #### L 100.0100, L500.2500 ####[facility] [address] [place], [address] Chloride [Moles/Vol] 111 mmol/L High 98-107 [facility] Comment on above: Performed By: #### L 100.0100, L500.2500 ####[facility] [address] [place], [address] CO2 [Moles/Vol] 23.0 mmol/L Normal 21.0-32.0 [facility] Comment on above: Performed By: #### L 100.0100, L500.2500 ####[facility] [address] [place], [address] Creatinine [Mass/Vol] 1.04 mg/dL High 0.55-1.02 [facility] Comment on above: Result Comment: The validity of the calculated GFR GFRAA in patients over70 years has not been determined. Clinical correlation isessential. Performed By: #### L 100.0100, L500.2500 ####[facility] [address] [place], [address] ECRCL 45.94 ml/min Normal [facility] Comment on above: Performed By: #### L 100.0100, L500.2500 ####[facility] [address] [place], [address] EST GFR - AA 67 mL/min Normal >60 [facility] Comment on above: Result Comment: Afri can Macanese GFR Calc Performed By: #### L 100.0100, L500.2500 ####[facility] [address] [place], [address] GAP 7 Normal 5-15 [facility] Comment on above: Performed By: #### L 100.0100, L500.2500 ####[facility] [address] [place], [address] GFR/1.73 sq M.predicted among non-blacks MDRD (S/P/Bld) [Vol rate/Area] 56 mL/min/{1.73_m2} Low >60 [facility] Comment on above: Result Comment: Non- GFR Calc Performed By: #### L 100.0100, L500.2500 ####[facility] [address] [place], [address] Glucose [Mass/Vol] 139 mg/dL High 74-106 [facility] Comment on above: Result Comment: Fast ing Glucose result greater than or equal to 126 mg/dLsuggests DIABETES MELLITUS per A.D.A. criteria. Performed By: #### L 100.0100, L500.2500 ####[facility] [address] [place], [address] Potassium [Moles/Vol] 3.6 mmol/L Normal 3.5-5.1 [facility] Comment on above: Performed By: #### L 100.0100, L500.2500 ####[facility] [address] [place], [address] Sodium [Moles/Vol] 141 mmol/L Normal 136-145 [facility] Comment on above: Performed By: #### L 100.0100, L500.2500 ####[facility] [address] [place], [address] Urea nitrogen [Mass/Vol] 42 mg/dL High 7-18 [facility] Comment on above: Performed By: #### L 100.0100, L500.2500 ####[facility] [address] [place], [address] Bedside Glucoseon 08--2023 FINGERSTICK GLU 131 mg/dL High 74-106 [facility] Comment on above: Result Comment: GERALDO GEMENT OF PATIENT CARE PER NURSING PROTOCOL Performed By: #### L 501.080 ####[facility] [address] [place], [address] FINGERSTICK GLU 115 mg/dL High 74-106 [facility] Comment on above: Result Comment: GERALDO GEMENT OF PATIENT CARE PER NURSING PROTOCOL Performed By: #### L 501.080 ####[facility] [address] [place], [address] CBC W/Diff, Automatedon 08-0 Absolute Lymph 2.47 X10 3/uL Normal 0.83-4.51 [facility] Comment on above: Performed By: #### L 100.0100, L500.2500 ####[facility] [address] [place], [address] Absolute Neut 6.1 X10 3/uL Normal 2.0-7.7 [facility] Comment on above: Performed By: #### L 100.0100, L500.2500 ####[facility] [address] [place], [address] Basophils/100 WBC (Bld) 0.1 % Normal 0-1 [facility] Comment on above: Performed By: #### L 100.0100, L500.2500 ####[facility] [address] [place], [address] Eosinophils/100 WBC (Bld) 1.8 % Normal 0-5 [facility] Comment on above: Performed By: #### L 100.0100, L500.2500 ####[facility] [address] [place], [address] Erythrocyte distribution width (RBC) [Ratio] 12.2 % Normal 11.6-14.6 [facility] Comment on above: Performed By: #### L 100.0100, L500.2500 ####[facility] [address] [place], [address] Hematocrit (Bld) [Volume fraction] 32.9 % Low 37-47 [facility] Comment on above: Performed By: #### L 100.0100, L500.2500 ####[facility] [address] [place], [address] Hemoglobin (Bld) [Mass/Vol] 10.7 g/dL Low 12.0-15.0 [facility] Comment on above: Performed By: #### L 100.0100, L500.2500 ####[facility] [address] [place], [address] IG% 0.400 Normal 0.0-0.9 [facility] Comment on above: Result Comment: IG% - Immature Granulocytes (promyelocytes, myelocytes andmetamyelocytes) > 1% indicates that a LEFT SHIFT is Present. Performed By: #### L 100.0100, L500.2500 ####[facility] [address] [place], [address] Lymphocytes/100 WBC (Bld) 26.0 % Normal 19-41 [facility] Comment on above: Performed By: #### L 100.0100, L500.2500 ####[facility] [address] [place], [address] MCH (RBC) [Entitic mass] 30.1 pg Normal 27.0-32.0 [facility] Comment on above: Performed By: #### L 100.0100, L500.2500 ####[facility] [address] [place], [address] MCHC (RBC) [Mass/Vol] 32.5 g/dL Normal 32-36 [facility] Comment on above: Performed By: #### L 100.0100, L500.2500 ####[facility] [address] [place], [address] MCV (RBC) [Entitic vol] 92.7 fL Normal 81-99 [facility] Comment on above: Performed By: #### L 100.0100, L500.2500 ####[facility] [address] [place], [address] Monocytes/100 WBC (Bld) 7.1 % Normal 0-10 [facility] Comment on above: Performed By: #### L 100.0100, L500.2500 ####[facility] [address] [place], [address] Neutrophils/100 WBC (Bld) 64.6 % Normal 47-70 [facility] Comment on above: Performed By: #### L 100.0100, L500.2500 ####[facility] [address] [place], [address] Nucleated RBC (Bld) [#/Vol] 0 10*3/uL Normal 0-5 [facility] Comment on above: Performed By: #### L 100.0100, L500.2500 ####[facility] [address] [place], [address] Platelet mean volume (Bld) [Entitic vol] 9.9 fL Normal 6.2-12.0 [facility] Comment on above: Performed By: #### L 100.0100, L500.2500 ####[facility] [address] [place], [address] Platelets (Bld) [#/Vol] 201 10*3/uL Normal 150-450 [facility] Comment on above: Performed By: #### L 100.0100, L500.2500 ####[facility] [address] [place], [address] RBC (Bld) [#/Vol] 3.55 10*6/uL Low 4.2-5.4 [facility] Comment on above: Performed By: #### L 100.0100, L500.2500 ####[facility] [address] [place], [address] RDW SD 41.7 fl Normal 35.1-43.9 [facility] Comment on above: Performed By: #### L 100.0100, L500.2500 ####[facility] [address] [place], [address] WBC (Bld) [#/Vol] 9.5 10*3/uL Normal 4.4-11.0 [facility] Comment on above: Performed By: #### L 100.0100, L500.2500 ####[facility] [address] [place], [address] Discharge Instructionon Discharge Instruction Normal [facility] Basic Metabolic Profile (BMP )on 09-19-2023 BUN/CRE 41.9 RATIO High 10-20 [facility] Comment on above: Performed By: #### L 500.2500, L100.0100 ####[facility] [address] [place], [address] CA,Total 8.9 mg/dL Normal 8.5-10.1 [facility] Comment on above: Performed By: #### L 500.2500, L100.0100 ####[facility] [address] [place], [address] Chloride [Moles/Vol] 109 mmol/L High 98-107 [facility] Comment on above: Performed By: #### L 500.2500, L100.0100 ####[facility] [address] [place], [address] CO2 [Moles/Vol] 23.0 mmol/L Normal 21.0-32.0 [facility] Comment on above: Performed By: #### L 500.2500, L100.0100 ####[facility] [address] [place], [address] Creatinine [Mass/Vol] 1.48 mg/dL High 0.55-1.02 [facility] Comment on above: Result Comment: The validity of the calculated GFR GFRAA in patients over70 years has not been determined. Clinical correlation isessential. Performed By: #### L 500.2500, L100.0100 ####[facility] [address] [place], [address] ECRCL 32.28 ml/min Normal [facility] Comment on above: Performed By: #### L 500.2500, L100.0100 ####[facility] [address] [place], [address] EST GFR - AA 45 mL/min Low >60 [facility] Comment on above: Result Comment: Afri can Macanese GFR Calc Performed By: #### L 500.2500, L100.0100 ####[facility] [address] [place], [address] GAP 7 Normal 5-15 [facility] Comment on above: Performed By: #### L 500.2500, L100.0100 ####[facility] [address] [place], [address] GFR/1.73 sq M.predicted among non-blacks MDRD (S/P/Bld) [Vol rate/Area] 37 mL/min/{1.73_m2} Low >60 [facility] Comment on above: Result Comment: Non- GFR Calc Performed By: #### L 500.2500, L100.0100 ####[facility] [address] [place], [address] Glucose [Mass/Vol] 186 mg/dL High 74-106 [facility] Comment on above: Result Comment: Fast ing Glucose result greater than or equal to 126 mg/dLsuggests DIABETES MELLITUS per A.D.A. criteria. Performed By: #### L 500.2500, L100.0100 ####[facility] [address] [place], [address] Potassium [Moles/Vol] 3.8 mmol/L Normal 3.5-5.1 [facility] Comment on above: Performed By: #### L 500.2500, L100.0100 ####[facility] [address] [place], [address] Sodium [Moles/Vol] 139 mmol/L Normal 136-145 [facility] Comment on above: Performed By: #### L 500.2500, L100.0100 ####[facility] [address] [place], [address] Urea nitrogen [Mass/Vol] 62 mg/dL High 7-18 [facility] Comment on above: Performed By: #### L 500.2500, L100.0100 ####[facility] [address] [place], [address] Bedside Glucoseon 09-19-2023 FINGERSTICK GLU 157 mg/dL High 74-106 [facility] Comment on above: Result Comment: GERALDO GEMENT OF PATIENT CARE PER NURSING PROTOCOL Performed By: #### L 501.080 ####[facility] [address] [place], [address] FINGERSTICK GLU 148 mg/dL High 74-106 [facility] Comment on above: Result Comment: GERALDO GEMENT OF PATIENT CARE PER NURSING PROTOCOL Performed By: #### L 501.080 ####[facility] [address] [place], [address] FINGERSTICK GLU 157 mg/dL High 74-106 [facility] Comment on above: Result Comment: GERALDO GEMENT OF PATIENT CARE PER NURSING PROTOCOL Performed By: #### L 501.080 ####[facility] [address] [place], [address] CBC W/Diff, Automatedon 08-0 7-2023 Absolute Lymph 2.75 X10 3/uL Normal 0.83-4.51 [facility] Comment on above: Performed By: #### L 500.2500, L100.0100 ####[facility] [address] [place], [address] Absolute Neut 12.1 X10 3/uL High 2.0-7.7 [facility] Comment on above: Performed By: #### L 500.2500, L100.0100 ####[facility] [address] [place], [address] Basophils/100 WBC (Bld) 0.3 % Normal 0-1 [facility] Comment on above: Performed By: #### L 500.2500, L100.0100 ####[facility] [address] [place], [address] Eosinophils/100 WBC (Bld) 0.5 % Normal 0-5 [facility] Comment on above: Performed By: #### L 500.2500, L100.0100 ####[facility] [address] [place], [address] Erythrocyte distribution width (RBC) [Ratio] 12.3 % Normal 11.6-14.6 [facility] Comment on above: Performed By: #### L 500.2500, L100.0100 ####[facility] [address] [place], [address] Hematocrit (Bld) [Volume fraction] 36.7 % Low 37-47 [facility] Comment on above: Performed By: #### L 500.2500, L100.0100 ####[facility] [address] [place], [address] Hemoglobin (Bld) [Mass/Vol] 11.8 g/dL Low 12.0-15.0 [facility] Comment on above: Performed By: #### L 500.2500, L100.0100 ####[facility] [address] [place], [address] IG% 1.100 High 0.0-0.9 [facility] Comment on above: Result Comment: IG% - Immature Granulocytes (promyelocytes, myelocytes andmetamyelocytes) > 1% indicates that a LEFT SHIFT is Present. Performed By: #### L 500.2500, L100.0100 ####[facility] [address] [place], [address] Lymphocytes/100 WBC (Bld) 17.0 % Low 19-41 [facility] Comment on above: Performed By: #### L 500.2500, L100.0100 ####[facility] [address] [place], [address] MCH (RBC) [Entitic mass] 29.4 pg Normal 27.0-32.0 [facility] Comment on above: Performed By: #### L 500.2500, L100.0100 ####[facility] [address] [place], [address] MCHC (RBC) [Mass/Vol] 32.2 g/dL Normal 32-36 [facility] Comment on above: Performed By: #### L 500.2500, L100.0100 ####[facility] [address] [place], [address] MCV (RBC) [Entitic vol] 91.3 fL Normal 81-99 [facility] Comment on above: Performed By: #### L 500.2500, L100.0100 ####[facility] [address] [place], [address] Monocytes/100 WBC (Bld) 6.2 % Normal 0-10 [facility] Comment on above: Performed By: #### L 500.2500, L100.0100 ####[facility] [address] [place], [address] Neutrophils/100 WBC (Bld) 74.9 % High 47-70 [facility] Comment on above: Performed By: #### L 500.2500, L100.0100 ####[facility] [address] [place], [address] Nucleated RBC (Bld) [#/Vol] 0.1 10*3/uL Normal 0-5 [facility] Comment on above: Performed By: #### L 500.2500, L100.0100 ####[facility] [address] [place], [address] Platelet mean volume (Bld) [Entitic vol] 10.1 fL Normal 6.2-12.0 [facility] Comment on above: Performed By: #### L 500.2500, L100.0100 ####[facility] [address] [place], [address] Platelets (Bld) [#/Vol] 237 10*3/uL Normal 150-450 [facility] Comment on above: Performed By: #### L 500.2500, L100.0100 ####[facility] [address] [place], [address] RBC (Bld) [#/Vol] 4.02 10*6/uL Low 4.2-5.4 [facility] Comment on above: Performed By: #### L 500.2500, L100.0100 ####[facility] [address] [place], [address] RDW SD 40.7 fl Normal 35.1-43.9 [facility] Comment on above: Performed By: #### L 500.2500, L100.0100 ####[facility] [address] [place], [address] WBC (Bld) [#/Vol] 16.1 10*3/uL High 4.4-11.0 [facility] Comment on above: Performed By: #### L 500.2500, L100.0100 ####[facility] [address] [place], [address] Consultation - Nephrologyon 09-19-2023 Consultation - Nephrology Normal [facility] 12 Lead EKGon 09-18-2023 12 Lead EKG Normal [facility] 12 Lead EKG Normal [facility] Basic Metabolic Profile (BMP )on 09-18-2023 BUN/CRE 38.7 RATIO High 10-20 [facility] Comment on above: Performed By: #### L 100.0100, L501.5200, L500.2500 ####[facility] [address] [place], [address] CA,Total 8.5 mg/dL Normal 8.5-10.1 [facility] Comment on above: Performed By: #### L 100.0100, L501.5200, L500.2500 ####[facility] [address] [place], [address] Chloride [Moles/Vol] 106 mmol/L Normal 98-107 [facility] Comment on above: Performed By: #### L 100.0100, L501.5200, L500.2500 ####[facility] [address] [place], [address] CO2 [Moles/Vol] 18.0 mmol/L Low 21.0-32.0 [facility] Comment on above: Performed By: #### L 100.0100, L501.5200, L500.2500 ####[facility] [address] [place], [address] Creatinine [Mass/Vol] 1.37 mg/dL High 0.55-1.02 [facility] Comment on above: Result Comment: The validity of the calculated GFR GFRAA in patients over70 years has not been determined. Clinical correlation isessential. Performed By: #### L 100.0100, L501.5200, L500.2500 ####[facility] [address] [place], [address] ECRCL 34.87 ml/min Normal [facility] Comment on above: Performed By: #### L 100.0100, L501.5200, L500.2500 ####[facility] [address] [place], [address] EST GFR - AA 49 mL/min Low >60 [facility] Comment on above: Result Comment: Afri can Macanese GFR Calc Performed By: #### L 100.0100, L501.5200, L500.2500 ####[facility] [address] [place], [address] GAP 12 Normal 5-15 [facility] Comment on above: Performed By: #### L 100.0100, L501.5200, L500.2500 ####[facility] [address] [place], [address] GFR/1.73 sq M.predicted among non-blacks MDRD (S/P/Bld) [Vol rate/Area] 41 mL/min/{1.73_m2} Low >60 [facility] Comment on above: Result Comment: Non- GFR Calc Performed By: #### L 100.0100, L501.5200, L500.2500 ####[facility] [address] [place], [address] Glucose [Mass/Vol] 319 mg/dL High 74-106 [facility] Comment on above: Result Comment: Gluc ose result greater than or equal to 200 mg/dLsuggests DIABETES MELLITUS per A.D.A. criteria. Performed By: #### L 100.0100, L501.5200, L500.2500 ####[facility] [address] [place], [address] Potassium [Moles/Vol] 3.9 mmol/L Normal 3.5-5.1 [facility] Comment on above: Performed By: #### L 100.0100, L501.5200, L500.2500 ####[facility] [address] [place], [address] Sodium [Moles/Vol] 136 mmol/L Normal 136-145 [facility] Comment on above: Performed By: #### L 100.0100, L501.5200, L500.2500 ####[facility] [address] [place], [address] Urea nitrogen [Mass/Vol] 53 mg/dL High 7-18 [facility] Comment on above: Performed By: #### L 100.0100, L501.5200, L500.2500 ####[facility] [address] [place], [address] Bedside Glucoseon 09-18-2023 FINGERSTICK GLU 278 mg/dL High 74-106 [facility] Comment on above: Result Comment: GERALDO SHY OF PATIENT CARE PER NURSING PROTOCOL Performed By: #### L 501.080 ####[facility] [address] [place], [address] FINGERSTICK GLU 265 mg/dL High 74-106 [facility] Comment on above: Result Comment: GERALDO GEMENT OF PATIENT CARE PER NURSING PROTOCOL Performed By: #### L 501.080 ####[facility] [address] [place], [address] FINGERSTICK GLU 371 mg/dL High 74-106 [facility] Comment on above: Result Comment: GERALDO GEMENT OF PATIENT CARE PER NURSING PROTOCOL Performed By: #### L 501.080 ####[facility] [address] [place], [address] CBC W/Diff, Automatedon 08-0 -2023 Absolute Lymph 1.77 X10 3/uL Normal 0.83-4.51 [facility] Comment on above: Performed By: #### L 100.0100, L501.5200, L500.2500 ####[facility] [address] [place], [address] Absolute Neut 23.3 X10 3/uL High 2.0-7.7 [facility] Comment on above: Performed By: #### L 100.0100, L501.5200, L500.2500 ####[facility] [address] [place], [address] Basophils/100 WBC (Bld) 0.2 % Normal 0-1 [facility] Comment on above: Performed By: #### L 100.0100, L501.5200, L500.2500 ####[facility] [address] [place], [address] Eosinophils/100 WBC (Bld) 0.0 % Normal 0-5 [facility] Comment on above: Performed By: #### L 100.0100, L501.5200, L500.2500 ####[facility] [address] [place], [address] Erythrocyte distribution width (RBC) [Ratio] 12.3 % Normal 11.6-14.6 [facility] Comment on above: Performed By: #### L 100.0100, L501.5200, L500.2500 ####[facility] [address] [place], [address] Hematocrit (Bld) [Volume fraction] 41.6 % Normal 37-47 [facility] Comment on above: Performed By: #### L 100.0100, L501.5200, L500.2500 ####[facility] [address] [place], [address] Hemoglobin (Bld) [Mass/Vol] 13.2 g/dL Normal 12.0-15.0 [facility] Comment on above: Performed By: #### L 100.0100, L501.5200, L500.2500 ####[facility] [address] [place], [address] IG% 0.700 Normal 0.0-0.9 [facility] Comment on above: Result Comment: IG% - Immature Granulocytes (promyelocytes, myelocytes andmetamyelocytes) > 1% indicates that a LEFT SHIFT is Present. Performed By: #### L 100.0100, L501.5200, L500.2500 ####[facility] [address] [place], [address] Lymphocytes/100 WBC (Bld) 6.6 % Low 19-41 [facility] Comment on above: Performed By: #### L 100.0100, L501.5200, L500.2500 ####[facility] [address] [place], [address] MCH (RBC) [Entitic mass] 29.3 pg Normal 27.0-32.0 [facility] Comment on above: Performed By: #### L 100.0100, L501.5200, L500.2500 ####[facility] [address] [place], [address] MCHC (RBC) [Mass/Vol] 31.7 g/dL Low 32-36 [facility] Comment on above: Performed By: #### L 100.0100, L501.5200, L500.2500 ####[facility] [address] [place], [address] MCV (RBC) [Entitic vol] 92.4 fL Normal 81-99 [facility] Comment on above: Performed By: #### L 100.0100, L501.5200, L500.2500 ####[facility] [address] [place], [address] Monocytes/100 WBC (Bld) 5.2 % Normal 0-10 [facility] Comment on above: Performed By: #### L 100.0100, L501.5200, L500.2500 ####[facility] [address] [place], [address] Neutrophils/100 WBC (Bld) 87.3 % High 47-70 [facility] Comment on above: Performed By: #### L 100.0100, L501.5200, L500.2500 ####[facility] [address] [place], [address] Nucleated RBC (Bld) [#/Vol] 0 10*3/uL Normal 0-5 [facility] Comment on above: Performed By: #### L 100.0100, L501.5200, L500.2500 ####[facility] [address] [place], [address] Platelet mean volume (Bld) [Entitic vol] 9.7 fL Normal 6.2-12.0 [facility] Comment on above: Performed By: #### L 100.0100, L501.5200, L500.2500 ####[facility] [address] [place], [address] Platelets (Bld) [#/Vol] 325 10*3/uL Normal 150-450 [facility] Comment on above: Performed By: #### L 100.0100, L501.5200, L500.2500 ####[facility] [address] [place], [address] RBC (Bld) [#/Vol] 4.50 10*6/uL Normal 4.2-5.4 [facility] Comment on above: Performed By: #### L 100.0100, L501.5200, L500.2500 ####[facility] [address] [place], [address] RDW SD 41.5 fl Normal 35.1-43.9 [facility] Comment on above: Performed By: #### L 100.0100, L501.5200, L500.2500 ####[facility] [address] [place], [address] WBC (Bld) [#/Vol] 26.7 10*3/uL High 4.4-11.0 [facility] Comment on above: Performed By: #### L 100.0100, L501.5200, L500.2500 ####[facility] [address] [place], [address] Magnesiumon 09-18-2023 Magnesium [Mass/Vol] 2.0 mg/dL Normal 1.6-2.6 [facility] Comment on above: Performed By: #### L 100.0100, L501.5200, L500.2500 ####[facility] [address] [place], [address] 12 Lead EKGon 09-17-2023 12 Lead EKG Normal [facility] Basic Metabolic Profile (BMP )on 09-17-2023 BUN/CRE 42.3 RATIO High 10-20 [facility] Comment on above: Performed By: #### L 500.2500, L100.0100, L501.9985, L500.4100 ####[facility] [address] [place], [address] CA,Total 9.7 mg/dL Normal 8.5-10.1 [facility] Comment on above: Performed By: #### L 500.2500, L100.0100, L501.9985, L500.4100 ####[facility] [address] [place], [address] Chloride [Moles/Vol] 108 mmol/L High 98-107 [facility] Comment on above: Performed By: #### L 500.2500, L100.0100, L501.9985, L500.4100 ####[facility] [address] [place], [address] CO2 [Moles/Vol] 17.0 mmol/L Low 21.0-32.0 [facility] Comment on above: Performed By: #### L 500.2500, L100.0100, L501.9985, L500.4100 ####[facility] [address] [place], [address] Creatinine [Mass/Vol] 1.04 mg/dL High 0.55-1.02 [facility] Comment on above: Result Comment: The validity of the calculated GFR GFRAA in patients over70 years has not been determined. Clinical correlation isessential. Performed By: #### L 500.2500, L100.0100, L501.9985, L500.4100 ####[facility] [address] [place], [address] ECRCL 45.94 ml/min Normal [facility] Comment on above: Performed By: #### L 500.2500, L100.0100, L501.9985, L500.4100 ####[facility] [address] [place], [address] EST GFR - AA 67 mL/min Normal >60 [facility] Comment on above: Result Comment: Afri can Macanese GFR Calc Performed By: #### L 500.2500, L100.0100, L501.9985, L500.4100 ####[facility] [address] [place], [address] GAP 16 High 5-15 [facility] Comment on above: Performed By: #### L 500.2500, L100.0100, L501.9985, L500.4100 ####[facility] [address] [place], [address] GFR/1.73 sq M.predicted among non-blacks MDRD (S/P/Bld) [Vol rate/Area] 56 mL/min/{1.73_m2} Low >60 [facility] Comment on above: Result Comment: Non- GFR Calc Performed By: #### L 500.2500, L100.0100, L501.9985, L500.4100 ####[facility] [address] [place], [address] Glucose [Mass/Vol] 270 mg/dL High 74-106 [facility] Comment on above: Result Comment: Gluc ose result greater than or equal to 200 mg/dLsuggests DIABETES MELLITUS per A.D.A. criteria. Performed By: #### L 500.2500, L100.0100, L501.9985, L500.4100 ####[facility] [address] [place], [address] Potassium [Moles/Vol] 4.8 mmol/L Normal 3.5-5.1 [facility] Comment on above: Performed By: #### L 500.2500, L100.0100, L501.9985, L500.4100 ####[facility] [address] [place], [address] Sodium [Moles/Vol] 141 mmol/L Normal 136-145 [facility] Comment on above: Performed By: #### L 500.2500, L100.0100, L501.9985, L500.4100 ####[facility] [address] [place], [address] Urea nitrogen [Mass/Vol] 44 mg/dL High 7-18 [facility] Comment on above: Performed By: #### L 500.2500, L100.0100, L501.9985, L500.4100 ####[facility] [address] [place], [address] Bedside Glucoseon 09-16-2023 FINGERSTICK GLU 323 mg/dL High 74-106 [facility] Comment on above: Result Comment: GERALDO GEMENT OF PATIENT CARE PER NURSING PROTOCOL Performed By: #### L 501.080 ####[facility] [address] [place], [address] FINGERSTICK GLU 257 mg/dL High 74-106 [facility] Comment on above: Result Comment: GERALDO GEMENT OF PATIENT CARE PER NURSING PROTOCOL Performed By: #### L 501.080 ####[facility] [address] [place], [address] FINGERSTICK GLU 264 mg/dL High 74-106 [facility] Comment on above: Result Comment: GERALDO GEMENT OF PATIENT CARE PER NURSING PROTOCOL Performed By: #### L 501.080 ####[facility] [address] [place], [address] CBC W/Diff, Automatedon 08-0 Absolute Lymph 0.75 X10 3/uL Low 0.83-4.51 [facility] Comment on above: Performed By: #### L 500.2500, L100.0100, L501.9985, L500.4100 ####[facility] [id number] [place], [address] Absolute Neut 18.1 X10 3/uL High 2.0-7.7 [facility] Comment on above: Performed By: #### L 500.2500, L100.0100, L501.9985, L500.4100 ####[facility] [id number] [place], [address] Basophils/100 WBC (Bld) 0.1 % Normal 0-1 [facility] Comment on above: Performed By: #### L 500.2500, L100.0100, L501.9985, L500.4100 ####[facility] [id number] [place], [address] Eosinophils/100 WBC (Bld) 0.0 % Normal 0-5 [facility] Comment on above: Performed By: #### L 500.2500, L100.0100, L501.9985, L500.4100 ####[facility] [id number] [place], [address] Erythrocyte distribution width (RBC) [Ratio] 12.0 % Normal 11.6-14.6 [facility] Comment on above: Performed By: #### L 500.2500, L100.0100, L501.9985, L500.4100 ####[facility] [id number] [place], [address] Hematocrit (Bld) [Volume fraction] 44.1 % Normal 37-47 [facility] [facility] Comment on above: Performed By: #### L 500.2500, L100.0100, L501.9985, L500.4100 ####[facility] [address] [place], [address] Hemoglobin (Bld) [Mass/Vol] 13.9 g/dL Normal 12.0-15.0 [facility] Comment on above: Performed By: #### L 500.2500, L100.0100, L501.9985, L500.4100 ####[facility] [address] [place], [address] IG% 0.600 Normal 0.0-0.9 [facility] Comment on above: Result Comment: IG% - Immature Granulocytes (promyelocytes, myelocytes andmetamyelocytes) > 1% indicates that a LEFT SHIFT is Present. Performed By: #### L 500.2500, L100.0100, L501.9985, L500.4100 ####[facility] [address] [place], [address] Lymphocytes/100 WBC (Bld) 3.8 % Low 19-41 [facility] Comment on above: Performed By: #### L 500.2500, L100.0100, L501.9985, L500.4100 ####[facility] [address] [place], [address] MCH (RBC) [Entitic mass] 29.1 pg Normal 27.0-32.0 [facility] Comment on above: Performed By: #### L 500.2500, L100.0100, L501.9985, L500.4100 ####[facility] [address] [place], [address] MCHC (RBC) [Mass/Vol] 31.5 g/dL Low 32-36 [facility] Comment on above: Performed By: #### L 500.2500, L100.0100, L501.9985, L500.4100 ####[facility] [address] [place], [address] MCV (RBC) [Entitic vol] 92.3 fL Normal 81-99 [facility] Comment on above: Performed By: #### L 500.2500, L100.0100, L501.9985, L500.4100 ####[facility] [address] [place], [address] Monocytes/100 WBC (Bld) 3.4 % Normal 0-10 [facility] Comment on above: Performed By: #### L 500.2500, L100.0100, L501.9985, L500.4100 ####[facility] [address] [place], [address] Neutrophils/100 WBC (Bld) 92.1 % High 47-70 [facility] Comment on above: Performed By: #### L 500.2500, L100.0100, L501.9985, L500.4100 ####[facility] [address] [place], [address] Nucleated RBC (Bld) [#/Vol] 0 10*3/uL Normal 0-5 [facility] Comment on above: Performed By: #### L 500.2500, L100.0100, L501.9985, L500.4100 ####[facility] [address] [place], [address] Platelet mean volume (Bld) [Entitic vol] 9.8 fL Normal 6.2-12.0 [facility] Comment on above: Performed By: #### L 500.2500, L100.0100, L501.9985, L500.4100 ####[facility] [address] [place], [address] Platelets (Bld) [#/Vol] 377 10*3/uL Normal 150-450 [facility] Comment on above: Performed By: #### L 500.2500, L100.0100, L501.9985, L500.4100 ####[facility] [address] [place], [address] RBC (Bld) [#/Vol] 4.78 10*6/uL Normal 4.2-5.4 [facility] Comment on above: Performed By: #### L 500.2500, L100.0100, L501.9985, L500.4100 ####[facility] [address] [place], [address] RDW SD 40.9 fl Normal 35.1-43.9 [facility] Comment on above: Performed By: #### L 500.2500, L100.0100, L501.9985, L500.4100 ####[facility] [address] [place], [address] WBC (Bld) [#/Vol] 19.6 10*3/uL High 4.4-11.0 [facility] Comment on above: Performed By: #### L 500.2500, L100.0100, L501.9985, L500.4100 ####[facility] [address] [place], [address] Cardiac Cath Diagnosticon Cardiac Cath Diagnostic Normal [facility] Consultation - Cardiologyon 09-17-2023 Consultation - Cardiology Normal [facility] Echo Complete W/ Contraston 09-17-2023 Echo Complete W/ Contrast Normal [facility] H AND P Exam - Hospitaliston 09-17-2023 H&P Exam - Hospitalist Normal [facility] Hemoglobin A1con 09-17-2023 HbA1c (Bld) [Mass fraction] 4.9 % Normal 3.8-5.6 [facility] Comment on above: Result Comment: Norm al < 5.7 % Prediabetic 5.7 - 6.4 % Diabetic >or= 6.5 % Please note range changes. Performed By: #### L 500.2500, L100.0100, L501.9985, L500.4100 ####[facility] [address] [place], [address] L501.4020on 09-17-2023 TROPONIN-I HS 4278 pg/mL Invalid Interpretation Code 3.0-54.0 [facility] Comment on above: Order Comment: 'TROP ' Serial specimen #1, #2 or #3: 3 Result Comment: Crit ical Result(s) Called at: 05:26:29 09/17/2023 by: Sachin. to Nilda VILLASENOR PCU. Results read back by same. Please Note: New Test Units and Gender Specific Reference Ranges. For more information see Policy Stat Procedure [place] High Sensitivity Troponin (TNIH) and attachments. Performed By: #### L 501.4020 ####[facility] [address] [place], [place], [address] TROPONIN-I HS 2289 pg/mL Invalid Interpretation Code 3.0-54.0 [facility] Comment on above: Order Comment: 'TROP ' Serial specimen #1, #2 or #3: 2 Result Comment: Crit ical Result(s) Called at: 01:13:21 09/17/2023 by: Sachin. to Delvis [employer] WORK[employer]. Results read back by same. Please Note: New Test Units and Gender Specific Reference Ranges. For more information see Policy Stat Procedure [place] High Sensitivity Troponin (TNIH) and attachments. Performed By: #### L 501.4020 ####[facility] [address] [place], [address] Lactic Acidon 09-17-2023 Lactate [Moles/Vol] 2.7 mmol/L Invalid Interpretation Code 0.4-1.9 [facility] Comment on above: Result Comment: Crit ical Result(s) Called at: 05:26:29 09/17/2023 by: Sachin. to Nilad VILLASENOR PCU. Results read back by same. Performed By: #### L 503.6005 ####[facility] [address] [place], [address] Lactate [Moles/Vol] 4.4 mmol/L Invalid Interpretation Code 0.4-1.9 [facility] Comment on above: Order Comment: Y Result Comment: Crit ical Result(s) Called at: 01:41:16 09/17/2023 by: to Yovanny villasenor ed. Results read back by same. Performed By: #### L 503.6005 ####[facility] [address] [place], [place], [address] Lipid Profileon 09-17-2023 Cholesterol [Mass/Vol] 151 mg/dL Normal 200 [facility] Comment on above: Result Comment: <200 mg/dL Desirable 200-240 mg/dL Borderline >240 mg/dL High Risk Performed By: #### L 500.2500, L100.0100, L501.9985, L500.4100 ####[facility] [address] [place], [address] Cholesterol in HDL [Mass/Vol] 47 mg/dL Normal [facility] Comment on above: Result Comment: The drugs N-Acetylcysteine and Metamizole may falselydepress this assay. Reference Range HDL <40 mg/dL Low HDL Cholesterol HDL >or= 60 mg/dL High HDL Cholesterol Performed By: #### L 500.2500, L100.0100, L501.9985, L500.4100 ####[facility] [address] [place], [address] Cholesterol in LDL [Mass/Vol] 87 mg/dL Normal 0-130 [facility] Comment on above: Performed By: #### L 500.2500, L100.0100, L501.9985, L500.4100 ####[facility] [address] [place], [address] Cholesterol in VLDL [Mass/Vol] 17 mg/dL Normal 5-40 [facility] Comment on above: Performed By: #### L 500.2500, L100.0100, L501.9985, L500.4100 ####[facility] [address] [place], [address] Triglyceride [Mass/Vol] 83 mg/dL Normal [facility] Comment on above: Result Comment: The drugs N-Acetylcysteine and Metamizole may falselydepress this assay.Serum Triglycerides Reference Interval Normal <150 mg/dL Borderline high 150 - 199 mg/dL High 200 - 499 mg/dL Very High > or = 500 mg/dL Performed By: #### L 500.2500, L100.0100, L501.9985, L500.4100 ####[facility] [address] [place], [address] Partial Thromboplast Timeon 09-17-2023 aPTT Coag (Bld) [Time] 52.1 s High 24.1-36.2 [facility] Comment on above: Performed By: #### L 300.4310 ####[facility] [address] [place], [address] aPTT Coag (Bld) [Time] 25.7 s Normal 24.1-36.2 [facility] Comment on above: Performed By: #### L 300.3900, L300.4310 ####[facility] [address] [place], [address] Prothrombin Time w/INRon INR Coag (PPP) [Relative time] 1.1 {INR} Normal [facility] Comment on above: Performed By: #### L 300.3900, L300.4310 ####[facility] [address] [place], [address] PT Coag (PPP) [Time] 14.6 s Normal 11.7-14.9 [facility] Comment on above: Performed By: #### L 300.3900, L300.4310 ####[facility] [address] [place], [address] Urinalysis, Completeon 09-16 AMORPHOUS 1+ Normal [facility] Comment on above: Order Comment: COLLE CTOR TO SPECIFY Performed By: #### L 400.0001 ####[facility] [address] [place], [address] BACTERIA 0 SEEN Normal None Seen [facility] Comment on above: Order Comment: COLLE CTOR TO SPECIFY Performed By: #### L 400.0001 ####[facility] [address] [place], [address] EPI,SQUAMOUS 0 SEEN Normal 5-10 [facility] Comment on above: Order Comment: COLLE CTOR TO SPECIFY Performed By: #### L 400.0001 ####[facility] [address] [place], [address] Mucus Ql (Urine sed) 0 SEEN Normal [facility] Comment on above: Order Comment: COLLE CTOR TO SPECIFY Performed By: #### L 400.0001 ####[facility] [address] [place], [address] RBC 0 SEEN Normal 0-5 [facility] Comment on above: Order Comment: DAYAN CTOR TO SPECIFY Performed By: #### L 400.0001 ####[facility] [address] [place], [address] WBC 0 SEEN Normal 0-5 [facility] Comment on above: Order Comment: DAYAN CTOR TO SPECIFY Performed By: #### L 400.0001 ####[facility] [address] [place], [address] Brain/Head without Contrasto n 09-16-2023 Brain/Head without Contrast Normal [facility] CBC W/Diff, Automatedon 08-0 -2023 Absolute Lymph 2.11 X10 3/uL Normal 0.83-4.51 [facility] Comment on above: Performed By: #### L 500.4050, L100.0100 ####[facility] [address] [place], [address] Absolute Neut 12.7 X10 3/uL High 2.0-7.7 [facility] Comment on above: Performed By: #### L 500.4050, L100.0100 ####[facility] [address] [place], [address] Basophils/100 WBC (Bld) 0.3 % Normal 0-1 [facility] Comment on above: Performed By: #### L 500.4050, L100.0100 ####[facility] [address] [place], [address] Eosinophils/100 WBC (Bld) 1.0 % Normal 0-5 [facility] Comment on above: Performed By: #### L 500.4050, L100.0100 ####[facility] [address] [place], [address] Erythrocyte distribution width (RBC) [Ratio] 11.8 % Normal 11.6-14.6 [facility] Comment on above: Performed By: #### L 500.4050, L100.0100 ####[facility] [address] [place], [address] Hematocrit (Bld) [Volume fraction] 46.5 % Normal 37-47 [facility] Comment on above: Performed By: #### L 500.4050, L100.0100 ####[facility] [address] [place], [address] Hemoglobin (Bld) [Mass/Vol] 14.8 g/dL Normal 12.0-15.0 [facility] Comment on above: Performed By: #### L 500.4050, L100.0100 ####[facility] [address] [place], [address] IG% 0.400 Normal 0.0-0.9 [facility] Comment on above: Result Comment: IG% - Immature Granulocytes (promyelocytes, myelocytes andmetamyelocytes) > 1% indicates that a LEFT SHIFT is Present. Performed By: #### L 500.4050, L100.0100 ####[facility] [address] [place], [address] Lymphocytes/100 WBC (Bld) 13.3 % Low 19-41 [facility] Comment on above: Performed By: #### L 500.4050, L100.0100 ####[facility] [address] [place], [address] MCH (RBC) [Entitic mass] 29.7 pg Normal 27.0-32.0 [facility] Comment on above: Performed By: #### L 500.4050, L100.0100 ####[facility] [address] [place], [address] MCHC (RBC) [Mass/Vol] 31.8 g/dL Low 32-36 [facility] Comment on above: Performed By: #### L 500.4050, L100.0100 ####[facility] [address] [place], [address] MCV (RBC) [Entitic vol] 93.2 fL Normal 81-99 [facility] Comment on above: Performed By: #### L 500.4050, L100.0100 ####[facility] [address] [place], [address] Monocytes/100 WBC (Bld) 4.9 % Normal 0-10 [facility] Comment on above: Performed By: #### L 500.4050, L100.0100 ####[facility] [address] [place], [address] Neutrophils/100 WBC (Bld) 80.1 % High 47-70 [facility] Comment on above: Performed By: #### L 500.4050, L100.0100 ####[facility] [address] [place], [address] Nucleated RBC (Bld) [#/Vol] 0 10*3/uL Normal 0-5 [facility] Comment on above: Performed By: #### L 500.4050, L100.0100 ####[facility] [address] [place], [address] Platelet mean volume (Bld) [Entitic vol] 9.5 fL Normal 6.2-12.0 [facility] Comment on above: Performed By: #### L 500.4050, L100.0100 ####[facility] [address] [place], [address] Platelets (Bld) [#/Vol] 409 10*3/uL Normal 150-450 [facility] Comment on above: Performed By: #### L 500.4050, L100.0100 ####[facility] [address] [place], [address] RBC (Bld) [#/Vol] 4.99 10*6/uL Normal 4.2-5.4 [facility] Comment on above: Performed By: #### L 500.4050, L100.0100 ####[facility] [address] [place], [address] RDW SD 40.6 fl Normal 35.1-43.9 [facility] Comment on above: Performed By: #### L 500.4050, L100.0100 ####[facility] [address] [place], [address] WBC (Bld) [#/Vol] 15.8 10*3/uL High 4.4-11.0 [facility] Comment on above: Performed By: #### L 500.4050, L100.0100 ####[facility] [address] [place], [address] Chest 1 View (Portable)on Chest 1 View (Portable) Normal [facility] Comprehensive Metabolic Prof ilon 09-16-2023 Albumin [Mass/Vol] 4.1 g/dL Normal 3.2-5.0 [facility] Comment on above: Performed By: #### L 500.4050, L100.0100 ####[facility] [address] [place], [address] Albumin/Globulin [Mass ratio] 0.9 {ratio} Normal 0.9-2.4 [facility] Comment on above: Performed By: #### L 500.4050, L100.0100 ####[facility] [address] [place], [address] ALK P 92 U/L Normal 45-117 [facility] Comment on above: Performed By: #### L 500.4050, L100.0100 ####[facility] [address] [place], [address] ALT [Catalytic activity/Vol] 38 U/L Normal 13-56 [facility] Comment on above: Performed By: #### L 500.4050, L100.0100 ####[facility] [address] [place], [address] AST [Catalytic activity/Vol] 28 U/L Normal 15-37 [facility] Comment on above: Performed By: #### L 500.4050, L100.0100 ####[facility] [address] [place], [address] Bilirubin [Mass/Vol] 0.70 mg/dL Normal 0.20-1.00 [facility] Comment on above: Result Comment: For patients on eltrombopag therapy, use of Dimension [place] TBIL is not recommended. Performed By: #### L 500.4050, L100.0100 ####[facility] [address] [place], [address] BUN/CRE 29.5 RATIO High 10-20 [facility] Comment on above: Performed By: #### L 500.4050, L100.0100 ####[facility] [address] [place], [address] CA,Total 10.0 mg/dL Normal 8.5-10.1 [facility] Comment on above: Performed By: #### L 500.4050, L100.0100 ####[facility] [address] [place], [address] Chloride [Moles/Vol] 106 mmol/L Normal 98-107 [facility] Comment on above: Performed By: #### L 500.4050, L100.0100 ####[facility] [address] [place], [address] CO2 [Moles/Vol] 18.0 mmol/L Low 21.0-32.0 [facility] Comment on above: Performed By: #### L 500.4050, L100.0100 ####[facility] [address] [place], [address] Creatinine [Mass/Vol] 1.29 mg/dL High 0.55-1.02 [facility] Comment on above: Result Comment: The validity of the calculated GFR GFRAA in patients over70 years has not been determined. Clinical correlation isessential. Performed By: #### L 500.4050, L100.0100 ####[facility] [address] [place], [address] EST GFR - AA 53 mL/min Low >60 [facility] Comment on above: Result Comment: Afri can Macanese GFR Calc Performed By: #### L 500.4050, L100.0100 ####[facility] [address] [place], [address] GAP 16 High 5-15 [facility] Comment on above: Performed By: #### L 500.4050, L100.0100 ####[facility] [address] [place], [address] GFR/1.73 sq M.predicted among non-blacks MDRD (S/P/Bld) [Vol rate/Area] 43 mL/min/{1.73_m2} Low >60 [facility] Comment on above: Result Comment: Non- GFR Calc Performed By: #### L 500.4050, L100.0100 ####[facility] [address] [place], [address] Globulin (S) [Mass/Vol] 4.4 g/dL High 2.2-4.2 [facility] Comment on above: Performed By: #### L 500.4050, L100.0100 ####[facility] [address] [place], [address] Glucose [Mass/Vol] 269 mg/dL High 74-106 [facility] Comment on above: Result Comment: Gluc ose result greater than or equal to 200 mg/dLsuggests DIABETES MELLITUS per A.D.A. criteria. Performed By: #### L 500.4050, L100.0100 ####[facility] [address] [place], [address] Potassium [Moles/Vol] 4.5 mmol/L Normal 3.5-5.1 [facility] Comment on above: Performed By: #### L 500.4050, L100.0100 ####[facility] [address] [place], [address] Sodium [Moles/Vol] 140 mmol/L Normal 136-145 [facility] Comment on above: Performed By: #### L 500.4050, L100.0100 ####[facility] [address] [place], [address] T PROT 8.5 g/dL High 6.4-8.2 [facility] Comment on above: Performed By: #### L 500.4050, L100.0100 ####[facility] [address] [place], [address] Urea nitrogen [Mass/Vol] 38 mg/dL High 7-18 [facility] Comment on above: Performed By: #### L 500.4050, L100.0100 ####[facility] [address] [place], [address] Emergency Department Summary on 09-16-2023 Emergency Department Summary Normal [facility] L501.4020on 09-16-2023 TROPONIN-I HS 98 pg/mL High 3.0-54.0 [facility] Comment on above: Order Comment: 'TROP ' Serial specimen #1, #2 or #3: 1 Result Comment: La aguilar Note: New Test Units and Gender Specific Reference Ranges. For more information see Policy Stat Procedure [place] High Sensitivity Troponin (TNIH) and attachments. Performed By: #### L 501.4020 ####[facility] [address] [place], [address] 36on 04-26-2023 36 Spoke to the nurse a nd informed her any medication questions needs to be answered from PCP [facility] 36 Ruthie spoke to her. Any medication questions need to go through PCP [facility] 36on 04-23-[address] [facility] 36on 04-20-2023 36 Rudy w/ [facility] called in w/ drug allergies the pt has: Oxy- codeine allergy, Oxycodone- Morphine allergy, Meloxicam- Naproxen allergy. Rudy wants to make sure its ok to give pt meds or not. Please Advise [phone]. [facility] [address] [facility] Absolute lymphocyte countOrd ered By: Anuja Murcia on 04-18-2023 Lymphocytes Auto (Unsp spec) [#/Vol] 2.09 10*3/uL 0.83-4.51 [facility] Automated lymphocyte count a s percentage of total leukocytesOrdered By: Anuja Murcia on 04-18-2023 Lymphocytes/100 WBC Auto (Unsp spec) 25.6 % 19-41 [facility] Basophil percentageOrdered B y: Anuja Murcia on 04-18-2023 Basophil percentage 12.0 g/dL 12.0-15.0 [facility] Basophil percentage 105 mg/dL 74-106 [facility] Basophil percentage 143 mmol/L 136-145 [facility] Basophil percentage 3.8 mmol/L 3.5-5.1 [facility] Basophil percentage 112 mmol/L 98-107 [facility] Basophils (Bld) [#/Vol] 8.2 10*3/uL 4.4-11.0 [facility] Basophils (Bld) [#/Vol] 5.3 10*3/uL 2.0-7.7 [facility] Basophils/100 WBC (Bld) 65.0 % 47-70 [facility] Basophils/100 WBC (Bld) 6.3 % 0-10 [facility] Basophils/100 WBC (Bld) 2.8 % 0-5 [facility] Basophils/100 WBC (Bld) 0.1 % 0-1 [facility] Chloride [Moles/Vol] 112 mmol/L 98-107 [facility] Eosinophils/100 WBC (Bld) 2.8 % 0-5 [facility] Glucose [Mass/Vol] 105 mg/dL 74-106 [facility] Comment on above: Fasting Glucose resu lt from 100 to 125 mg/dL suggests IMPAIRED HOMEOSTASIS per A.D.A. criteria. Hemoglobin (Bld) [Mass/Vol] 12.0 g/dL 12.0-15.0 [facility] Monocytes/100 WBC (Bld) 6.3 % 0-10 [facility] Neutrophils (Bld) [#/Vol] 5.3 10*3/uL 2.0-7.7 [facility] Neutrophils/100 WBC (Bld) 65.0 % 47-70 [facility] Potassium [Moles/Vol] 3.8 mmol/L 3.5-5.1 [facility] Sodium [Moles/Vol] 143 mmol/L 136-145 [facility] WBC (Bld) [#/Vol] 8.2 10*3/uL 4.4-11.0 [facility] Determination of erythrocyte mean corpuscular volume (MCV)Ordered By: Anuja Murcia on 04-18-2023 MCV (RBC) [Entitic vol] 87.2 fL 81-99 [facility] Erythrocyte distribution wid th ratioOrdered By: Anuja Murcia on 04-18-2023 Erythrocyte distribution width (RBC) [Ratio] 14.0 % 11.6-14.6 [facility] Erythrocyte distribution wid th standard deviationOrdered By: Anuja Murcia on 04-18-2023 Erythrocyte distribution width (RBC) [Entitic vol] 45.2 fL 35.1-43.9 [facility] Hematocrit Auto (Bld) [Volum e fraction]Ordered By: Anuja Murcia on 04-18-2023 Hematocrit (Bld) [Volume fraction] 37.6 % 37-47 [facility] Immature granulocytes/100 WB C Auto (Bld)Ordered By: Anuja Murcia on 04-18-2023 Immature granulocytes/100 WBC (Bld) 0.200 % 0.0-0.9 [facility] Comment on above: IG% - Immature Granu locytes (promyelocytes, myelocytes and metamyelocytes) > 1% indicates that a LEFT SHIFT is Present. Laboratory - Chemistry and C hemistry - challengeOrdered By: Anuja Murcia on 04-18-2023 CO2 [Moles/Vol] 23.0 mmol/L 21.0-32.0 [facility] Urea nitrogen/Creatinine [Mass ratio] 12.2 mg/mg 10-20 [facility] Laboratory - Hematology and Cell countsOrdered By: Anuja Murcia on 04-18-2023 MCH (RBC) [Entitic mass] 27.8 pg 27.0-32.0 [facility] MCHC (RBC) [Mass/Vol] 31.9 g/dL 32-36 [facility] Nucleated RBC/100 WBC (Bld) [Ratio] 0 % 0-5 [facility] Platelet mean volume (Bld) [Entitic vol] 9.6 fL 6.2-12.0 [facility] Platelets (Bld) [#/Vol] 230 10*3/uL 150-450 [facility] No Panel InformationOrdered By: Anuja Murcia on 04-18-2023 Estimated Creatinine Clearance Calc 67.27 ml/min [facility] Estimated GFR (MDRD) Amer 134 mL/min >60 [facility] Comment on above: GFR Calc Estimated GFR (MDRD) Non-Af Amer 111 mL/min >60 [facility] Comment on above: Non- GFR Calc 27.8 pg 27.0-32.0 [facility] 31.9 g/dL 32-36 [facility] 230 K/mm3 150-450 [facility] 9.6 fl 6.2-12.0 [facility] 0 % 0-5 [facility] 111 mL/min >60 [facility] 134 mL/min >60 [facility] 67.27 ml/min [facility] 12.2 RATIO 10-20 [facility] 23.0 mmol/L 21.0-32.0 [facility] RBC Auto (Bld) [#/Vol]Ordere d By: Anuja Murcia on 04-18-2023 RBC (Bld) [#/Vol] 4.31 10*6/uL 4.2-5.4 [facility] Serum or plasma calcium timbo urement (mass/volume)Ordered By: Anuja Murcia on 04-18-2023 Calcium [Mass/Vol] 8.6 mg/dL 8.5-10.1 [facility] Serum or plasma creatinine m easurement (mass/volume)Ordered By: Anuja Murcia on 04-18-2023 Creatinine [Mass/Vol] 0.57 mg/dL 0.55-1.02 [facility] Comment on above: The validity of the calculated GFR & GFRAA in patients over 70 years has not been determined. Clinical correlation is essential. Serum or plasma urea nitroge n measurement (mass/volume)Ordered By: Anuja Murcia on 04-18-2023 Urea nitrogen [Mass/Vol] 7 mg/dL 7-18 [facility] Thin prep Papanicolaou smear with manual screeningOrdered By: Anuja Murcia on 04-18-2023 Thin prep Papanicolaou smear with manual screening 8 5-15 [facility] Thin prep Papanicolaou smear with manual screening 115 mg/dL 74-106 [facility] Comment on above: MANAGEMENT OF PATIEN T CARE PER NURSING PROTOCOL 36on 04-17-2023 36 Normal [facility] Basophil percentageOrdered B y: Anuja Murcia on 04-17-2023 Basophil percentage 2.3 mg/dL 2.5-4.9 [facility] Laboratory - Chemistry and C hemistry - challengeOrdered By: Anuja Murcia on 04-17-2023 Magnesium [Mass/Vol] 1.5 mg/dL 1.6-2.6 [facility] No Panel InformationOrdered By: Anuja Murcia on 03-05-2024 1.5 mg/dL 1.6-2.6 [facility] Basophil percentageOrdered B y: Anuja Brown on 04-15-2023 Basophil percentage 6.3 g/dL 6.4-8.2 [facility] Basophil percentage 0.50 mg/dL 0.20-1.00 [facility] Bilirubin [Mass/Vol] 0.50 mg/dL 0.20-1.00 [facility] Comment on above: For patients on eltr ombopag therapy, use of Dimension [place] TBIL is not recommended. Protein [Mass/Vol] 6.3 g/dL 6.4-8.2 [facility] Laboratory - Chemistry and C hemistry - challengeOrdered By: Anuja Brown on 04-15-2023 Albumin/Globulin [Mass ratio] 1.0 {ratio} 0.9-2.4 [facility] ALP [Catalytic activity/Vol] 73 U/L - [facility] ALT [Catalytic activity/Vol] 14 U/L [facility] Globulin (S) [Mass/Vol] 3.2 g/dL 2.2-4.2 [facility] Lipase [Catalytic activity/Vol] 19 U/L [facility] Comment on above: Please note:LIPASE r evised reference range effective 22. New Lipase methodology. Expected to produce lower values than the previous assay method. NEW Reference Range: 13 - 75 U/L No Panel InformationOrdered By: Anuja Brown on 04-15-2023 3.2 g/dL 2.2-4.2 [facility] 1.0 RATIO 0.9-2.4 [facility] 19 U/L [facility] 73 U/L 45-117 [facility] 14 U/L [facility] Serum or plasma thyroid stim ulating hormone (TSH) measurement (units/volume)Ordered By: Anuja Brown on 04-15-2023 TSH Qn 3.89 uIU/mL 0.358-3.74 [facility] Thin prep Papanicolaou smear with manual screeningOrdered By: Anuja Brown on 04-15-2023 Thin prep Papanicolaou smear with manual screening 3.1 g/dL 3.2-5.0 [facility] Thin prep Papanicolaou smear with manual screening 12 U/L 15-37 [facility] Absolute lymphocyte countOrd ered By: Marcos Hoffman on 04-14-2023 Lymphocytes Auto (Unsp spec) [#/Vol] 1.59 10*3/uL 0.83-4.51 [facility] Assessment of wrist artery p atency prior to arterial punctureOrdered By: Tamiko Quigley on 04-14-2023 Arterial patency Wrist artery --pre arterial puncture Positive [facility] Automated lymphocyte count a s percentage of total leukocytesOrdered By: Marcos Hoffman on 04-14-2023 Lymphocytes/100 WBC Auto (Unsp spec) 8.2 % 19-41 [facility] Bacteria identified Cx Nom ( U)Ordered By: Marcos Hoffman on 04-14-2023 Culture, urine Presumptive E. coli [facility] Base excessOrdered By: Mari Quigley on 04-14-2023 Base excess Calc (BldV) [Moles/Vol] -3 mmol/L -2-2 [facility] Basophil percentageOrdered B y: Tamiko Quigley on 04-14-2023 Basophil percentage 24 mmol/L [facility] Basophils/100 WBC (Bld) 97 % 95-99 [facility] Basophil percentageOrdered B y: Marcos Hoffman on 04-14-2023 Basophil percentage 15.9 g/dL 12.0-15.0 [facility] Basophil percentage 312 mg/dL 74-106 [facility] Basophil percentage 9.1 g/dL 6.4-8.2 [facility] Basophil percentage 1.20 mg/dL 0.20-1.00 [facility] Basophil percentage 137 mmol/L 136-145 [facility] Basophil percentage 4.2 mmol/L 3.5-5.1 [facility] Basophil percentage 101 mmol/L 98-107 [facility] Basophils (Bld) [#/Vol] 19.4 10*3/uL 4.4-11.0 [facility] Basophils (Bld) [#/Vol] 17.2 10*3/uL 2.0-7.7 [facility] Basophils/100 WBC (Bld) 88.6 % 47-70 [facility] Basophils/100 WBC (Bld) 2.2 % 0-10 [facility] Basophils/100 WBC (Bld) 0.2 % 0-1 [facility] Basophil percentage 1.9 mmol/L 0.4-2.0 [facility] Lactate [Moles/Vol] 1.9 mmol/L 0.4-2.0 [facility] Basophil percentage 5-10 SEEN /hpf 0-5 [facility] Ammonia (P) [Moles/Vol] 41.0 umol/L [facility] Comment on above: Gross Hemolysis, Res ult may be falsely increased. Basophil percentage 41.0 umol/L [facility] Basophil percentageOrdered B y: nAuja Brown on 04-14-2023 Basophil percentage 182 mg/dL <200 [facility] Basophil percentage 98 mg/dL <199 [facility] Cholesterol [Mass/Vol] 182 mg/dL <200 [facility] Comment on above: <200 mg/dL Desirable 200-240 mg/dL Borderline >240 mg/dL High Risk Triglyceride [Mass/Vol] 98 mg/dL <199 [facility] Comment on above: The drugs N-Acetylcy steine and Metamizole may falsely depress this assay.Serum Triglycerides Reference Interval Normal <150 mg/dL Borderline high 150 - 199 mg/dL High 200 - 499 mg/dL Very High > or = 500 mg/dL Bilirubin Test strip Ql (U)O rdered By: Marcos Hoffman on 04-14-2023 Bilirubin Ql (U) Negative Negative [facility] Culture, urineOrdered By: Kaela Hoffman on 04-14-2023 Bacteria identified Cx Nom (U) Presumptive E. coli [facility] Determination of erythrocyte mean corpuscular volume (MCV)Ordered By: Marcos Hoffman on 04-14-2023 MCV (RBC) [Entitic vol] 86.8 fL 81-99 [facility] Direct bilirubinOrdered By: Marcos Hoffman on 04-14-2023 Bilirubin.direct [Mass/Vol] 0.17 mg/dL 0.00-0.30 [facility] Erythrocyte distribution wid th ratioOrdered By: Marcos Hoffman on 04-14-2023 Erythrocyte distribution width (RBC) [Ratio] 13.8 % 11.6-14.6 [facility] Erythrocyte distribution wid th standard deviationOrdered By: Marcos Hoffman on 04-14-2023 Erythrocyte distribution width (RBC) [Entitic vol] 44.0 fL 35.1-43.9 [facility] Hematocrit Auto (Bld) [Volum e fraction]Ordered By: Marcos Hoffman on 04-14-2023 Hematocrit (Bld) [Volume fraction] 51.3 % 37-47 [facility] Immature granulocytes/100 WB C Auto (Bld)Ordered By: Marcos Hoffman on 04-14-2023 Immature granulocytes/100 WBC (Bld) 0.600 % 0.0-0.9 [facility] Ketones Test strip Ql (U)Ord ered By: Marcos Hoffman on 04-14-2023 Ketones Ql (U) 50 mg/dl Negative [facility] Laboratory - Chemistry and C hemistry - challengeOrdered By: Anuja Brown on 04-14-2023 Cholesterol in HDL [Mass/Vol] 63 mg/dL >40 [facility] Comment on above: The drugs N-Acetylcy steine and Metamizole may falsely depress this assay. Reference Range HDL <40 mg/dL Low HDL Cholesterol HDL >or= 60 mg/dL High HDL Cholesterol Cholesterol in LDL [Mass/Vol] 99 mg/dL 0-130 [facility] Laboratory - Microbiology an d Antimicrobial susceptibilityOrdered By: Marcos Hoffman on 04-14-2023 Bacteria identified Cx Nom (Bld) No growth in 5 days. [facility] Measurement, pHOrdered By: Mary Quigley on 04-14-2023 pH (Unsp spec) 7.37 [pH] 7.35-7.45 [facility] Mucus LM Ql (Urine sed)Order ed By: Marcos Hoffman on 04-14-2023 Mucus Ql (Urine sed) 0 SEEN /hpf [facility] Nitrite Test strip Ql (U)Ord ered By: Marcos Hoffman on 04-14-2023 Nitrite Ql (U) Negative Negative [facility] No Panel InformationOrdered By: Tamiko Quigley on 04-14-2023 Arterial Blood Partial Pressure CO2 38.8 mmHg 35-45 [facility] Arterial Blood Partial Pressure O2 96 mmHG 75-100 [facility] Blood Gas Bicarbonate Actual 22.3 mmol/L 22-26 [facility] Blood Gas Oxygen Percent 2.0 [facility] Blood Gas Sample Site R [facility] Blood Gas Specimen Type ART [facility] Blood Gas Vent Mode Not entered [facility] Oxygen Delivery Device Cannula [facility] ART [facility] R [facility] Not entered [facility] Cannula [facility] 2.0 [facility] 38.8 mmHg 35-45 [facility] 96 mmHG 75-100 [facility] 22.3 mmol/L 22-26 [facility] No Panel InformationOrdered By: Anuja Brown on 04-14-2023 VLDL Cholesterol 20 mg/dL 5-40 [facility] 63 mg/dL >40 [facility] 99 mg/dL 0-130 [facility] 20 mg/dL 5-40 [facility] No Panel InformationOrdered By: Marcos Hoffman on 04-14-2023 26.9 pg 27.0-32.0 [facility] 31.0 g/dL 32-36 [facility] 366 K/mm3 150-450 [facility] 9.9 fl 6.2-12.0 [facility] 0 % 0-5 [facility] 55 mL/min >60 [facility] 67 mL/min >60 [facility] 50.55 ml/min [facility] 15.2 RATIO 10-20 [facility] 4.7 g/dL 2.2-4.2 [facility] 21 U/L 13-75 [facility] 127 U/L 45-117 [facility] 19 U/L 13-56 [facility] 24.0 mmol/L 21.0-32.0 [facility] Urine RBC 0 SEEN /hpf 0-5 [facility] 0 SEEN /hpf 0-5 [facility] Protein Test strip Ql (U)Ord ered By: Marcos Hoffman on 04-14-2023 Protein Ql (U) 500 mg/dl Negative [facility] RBC Auto (Bld) [#/Vol]Ordere d By: Marcos Hoffman on 04-14-2023 RBC (Bld) [#/Vol] 5.91 10*6/uL 4.2-5.4 [facility] Serum or plasma calcium timbo urement (mass/volume)Ordered By: Marcos Hoffman on 04-14-2023 Calcium [Mass/Vol] 10.1 mg/dL 8.5-10.1 [facility] Serum or plasma creatinine m easurement (mass/volume)Ordered By: Marcos Hoffman on 04-14-2023 Creatinine [Mass/Vol] 1.05 mg/dL 0.55-1.02 [facility] Serum or plasma urea nitroge n measurement (mass/volume)Ordered By: Marcos Hoffman on 04-14-2023 Urea nitrogen [Mass/Vol] 16 mg/dL 7-18 [facility] Serum procalcitonin measurem entOrdered By: Marcos Hoffman on 04-14-2023 Procalcitonin [Mass/Vol] 0.12 ng/mL 0.00-0.09 [facility] Comment on above: A procalcitonin (PCT ) level above 2.0 ng/mL on the first day of ICU admission is associated with a high risk for progression to severe sepsis and/or septic shock. A PCT level below 0.5 ng/mL on the first day of ICU admission is associated with a low risk for progression to severe and/or septic shock. Note: Concentrations <0.5 ng/mL do not exclude an infection on account of localized infections (without systemic signs) which can be associated with such low concentrations, or a systemic infection in its initial stages (<6 hours). Furthermore, increased procalcitonin can occur without infection. PCT concentrations between 0.5 and 2.0 ng/mL should be interpreted taking into account the patient's history. It is recommended to retest PCT within 6-24 hours if any concentrations <2 ng/mL are obtained. Squamous epithelial cells de tection in urine sediment by light microscopyOrdered By: Marcos Hoffman on 04-14-2023 Epithelial cells.squamous LM Ql (Urine sed) 0 SEEN /hpf 5-10 [facility] Thin prep Papanicolaou smear with manual screeningOrdered By: Marcos Hoffman on 04-14-2023 Thin prep Papanicolaou smear with manual screening 4.4 g/dL 3.2-5.0 [facility] Thin prep Papanicolaou smear with manual screening 28 U/L 15-37 [facility] Thin prep Papanicolaou smear with manual screening 12 5-15 [facility] Urine blood detectionOrdered By: Marcos Hoffman on 04-14-2023 RBC Ql (U) 25 /ul Negative [facility] Urine clarityOrdered By: Augie Hoffman on 04-14-2023 Clarity (U) Sl. Cloudy Clear [facility] Urine color determinationOrd ered By: Marcos Hoffman on 04-14-2023 Color (U) Yellow Yellow [facility] Urine glucose detectionOrder ed By: Marcos Hoffman on 04-14-2023 Glucose Ql (U) 1000 mg/dl Normal [facility] Urine leukocyte esterase det ection by dipstickOrdered By: Marcos Hoffman on 04-14-2023 Leukocyte esterase Test strip Ql (U) 25 /ul Negative [facility] Urine pHOrdered By: Marcos Dasilva ndes on 04-14-2023 pH (U) 7.0 [pH] 5.0 - 8.0 [facility] Urine sediment bacteria coun t by microscopy (number/high power field)Ordered By: Marcos Hoffman on 04-14-2023 Bacteria LM.HPF (Urine sed) [#/Area] 3 /[HPF] None Seen [facility] Urine specific gravity measu rementOrdered By: Marcos Hoffman on 04-14-2023 Specific gravity (U) [Rel density] 1.010 1.002-1.030 [facility] Urine urobilinogen measureme ntOrdered By: Marcos Hoffman on 04-14-2023 Urobilinogen Ql (U) Normal mg/dl Normal [facility] 36on 04-12-2023 36 Normal [facility] Progress Noteon 04-10-2023 Progress Note Normal [facility] XR FEMUR 2+ VW RIGHTon 04-10 XR FEMUR 2+ VW RIGHT 2v right femur show the Intertan nail remains in good position.The fracture is well-aligned and remains unchanged from prior films. The fracture is still visualized. There has been some shortening. Normal [facility] Basophil percentageOrdered B y: Radha Elliott on 03-26-2023 Basophil percentage 11.1 g/dL 12.0-15.0 [facility] Basophil percentage 124 mg/dL 74-106 [facility] Basophil percentage 6.7 g/dL 6.4-8.2 [facility] Basophil percentage 0.30 mg/dL 0.20-1.00 [facility] Basophil percentage 143 mmol/L 136-145 [facility] Basophil percentage 3.8 mmol/L 3.5-5.1 [facility] Basophil percentage 115 mmol/L 98-107 [facility] Basophils (Bld) [#/Vol] 8.6 10*3/uL 4.4-11.0 [facility] Bilirubin [Mass/Vol] 0.30 mg/dL 0.20-1.00 [facility] Comment on above: For patients on eltr ombopag therapy, use of Dimension [place] TBIL is not recommended. Chloride [Moles/Vol] 115 mmol/L 98-107 [facility] Glucose [Mass/Vol] 124 mg/dL 74-106 [facility] Comment on above: Fasting Glucose resu lt from 100 to 125 mg/dL suggests IMPAIRED HOMEOSTASIS per A.D.A. criteria. Hemoglobin (Bld) [Mass/Vol] 11.1 g/dL 12.0-15.0 [facility] Potassium [Moles/Vol] 3.8 mmol/L 3.5-5.1 [facility] Protein [Mass/Vol] 6.7 g/dL 6.4-8.2 [facility] Sodium [Moles/Vol] 143 mmol/L 136-145 [facility] WBC (Bld) [#/Vol] 8.6 10*3/uL 4.4-11.0 [facility] Determination of erythrocyte mean corpuscular volume (MCV)Ordered By: Radha Elliott on 03-26-2023 MCV (RBC) [Entitic vol] 89.4 fL 81-99 [facility] Erythrocyte distribution wid th ratioOrdered By: Radha Elliott on 03-26-2023 Erythrocyte distribution width (RBC) [Ratio] 13.8 % 11.6-14.6 [facility] Erythrocyte distribution wid th standard deviationOrdered By: Radha Elliott on 03-26-2023 Erythrocyte distribution width (RBC) [Entitic vol] 45.1 fL 35.1-43.9 [facility] Hematocrit Auto (Bld) [Volum e fraction]Ordered By: Radha Elliott on 03-26-2023 Hematocrit (Bld) [Volume fraction] 36.2 % 37-47 [facility] Laboratory - Chemistry and C hemistry - challengeOrdered By: Radha Elliott on 03-26-2023 Albumin/Globulin [Mass ratio] 0.9 {ratio} 0.9-2.4 [facility] ALP [Catalytic activity/Vol] 97 U/L 45-117 [facility] ALT [Catalytic activity/Vol] 11 U/L 13-56 [facility] CO2 [Moles/Vol] 23.0 mmol/L 21.0-32.0 [facility] Globulin (S) [Mass/Vol] 3.5 g/dL 2.2-4.2 [facility] Urea nitrogen/Creatinine [Mass ratio] 40.7 mg/mg 10-20 [facility] Laboratory - Hematology and Cell countsOrdered By: Radha Elliott on 03-26-2023 MCH (RBC) [Entitic mass] 27.4 pg 27.0-32.0 [facility] MCHC (RBC) [Mass/Vol] 30.7 g/dL 32-36 [facility] Platelet mean volume (Bld) [Entitic vol] 9.5 fL 6.2-12.0 [facility] Platelets (Bld) [#/Vol] 289 10*3/uL 150-450 [facility] No Panel InformationOrdered By: Radha Elliott on 03-26-2023 Estimated GFR (MDRD) Amer 100 mL/min >60 [facility] Comment on above: GFR Calc Estimated GFR (MDRD) Non-Af Amer 83 mL/min >60 [facility] Comment on above: Non- GFR Calc 27.4 pg 27.0-32.0 [facility] 30.7 g/dL 32-36 [facility] 289 K/mm3 150-450 [facility] 9.5 fl 6.2-12.0 [facility] 83 mL/min >60 [facility] 100 mL/min >60 [facility] 40.7 RATIO 10-20 [facility] 3.5 g/dL 2.2-4.2 [facility] 0.9 RATIO 0.9-2.4 [facility] 97 U/L 45-117 [facility] 11 U/L 13-56 [facility] 23.0 mmol/L 21.0-32.0 [facility] RBC Auto (Bld) [#/Vol]Ordere d By: Radha Elliott on 03-26-2023 RBC (Bld) [#/Vol] 4.05 10*6/uL 4.2-5.4 [facility] Serum or plasma calcium timbo urement (mass/volume)Ordered By: Radha Elliott on 03-26-2023 Calcium [Mass/Vol] 8.9 mg/dL 8.5-10.1 [facility] Serum or plasma creatinine m easurement (mass/volume)Ordered By: Radha Elliott on 03-26-2023 Creatinine [Mass/Vol] 0.74 mg/dL 0.55-1.02 [facility] Comment on above: The validity of the calculated GFR & GFRAA in patients over 70 years has not been determined. Clinical correlation is essential. Serum or plasma urea nitroge n measurement (mass/volume)Ordered By: Radha Elliott on 03-26-2023 Urea nitrogen [Mass/Vol] 30 mg/dL 7-18 [facility] Thin prep Papanicolaou smear with manual screeningOrdered By: Radha Elliott on 03-26-2023 Thin prep Papanicolaou smear with manual screening 3.2 g/dL 3.2-5.0 [facility] Thin prep Papanicolaou smear with manual screening 14 U/L 15-37 [facility] Thin prep Papanicolaou smear with manual screening 5 5-15 [facility] Basophil percentageOrdered B y: Radha Elliott on 03-19-2023 Basophil percentage 11.2 g/dL 12.0-15.0 [facility] Basophil percentage 108 mg/dL 74-106 [facility] Basophil percentage 7.2 g/dL 6.4-8.2 [facility] Basophil percentage 0.30 mg/dL 0.20-1.00 [facility] Basophil percentage 140 mmol/L 136-145 [facility] Basophil percentage 4.1 mmol/L 3.5-5.1 [facility] Basophil percentage 111 mmol/L 98-107 [facility] Basophils (Bld) [#/Vol] 8.4 10*3/uL 4.4-11.0 [facility] Bilirubin [Mass/Vol] 0.30 mg/dL 0.20-1.00 [facility] Comment on above: For patients on eltr ombopag therapy, use of Dimension [place] TBIL is not recommended. Chloride [Moles/Vol] 111 mmol/L 98-107 [facility] Glucose [Mass/Vol] 108 mg/dL 74-106 [facility] Comment on above: Fasting Glucose resu lt from 100 to 125 mg/dL suggests IMPAIRED HOMEOSTASIS per A.D.A. criteria. Hemoglobin (Bld) [Mass/Vol] 11.2 g/dL 12.0-15.0 [facility] Potassium [Moles/Vol] 4.1 mmol/L 3.5-5.1 [facility] Protein [Mass/Vol] 7.2 g/dL 6.4-8.2 [facility] Sodium [Moles/Vol] 140 mmol/L 136-145 [facility] WBC (Bld) [#/Vol] 8.4 10*3/uL 4.4-11.0 [facility] Determination of erythrocyte mean corpuscular volume (MCV)Ordered By: Radha Elliott on 03-19-2023 MCV (RBC) [Entitic vol] 90.2 fL 81-99 [facility] Erythrocyte distribution wid th ratioOrdered By: Radha Elliott on 03-19-2023 Erythrocyte distribution width (RBC) [Ratio] 13.8 % 11.6-14.6 [facility] Erythrocyte distribution wid th standard deviationOrdered By: Radha Elliott on 03-19-2023 Erythrocyte distribution width (RBC) [Entitic vol] 45.3 fL 35.1-43.9 [facility] Hematocrit Auto (Bld) [Volum e fraction]Ordered By: Radha Elliott on 03-19-2023 Hematocrit (Bld) [Volume fraction] 36.7 % 37-47 [facility] Laboratory - Chemistry and C hemistry - challengeOrdered By: Radha Elliott on 03-19-2023 Albumin/Globulin [Mass ratio] 0.8 {ratio} 0.9-2.4 [facility] ALP [Catalytic activity/Vol] 107 U/L 45-117 [facility] ALT [Catalytic activity/Vol] 14 U/L 13 [facility] CO2 [Moles/Vol] 26.0 mmol/L 21.0-32.0 [facility] Globulin (S) [Mass/Vol] 3.9 g/dL 2.2-4.2 [facility] Urea nitrogen/Creatinine [Mass ratio] 43.4 mg/mg 10- [facility] Laboratory - Hematology and Cell countsOrdered By: Radha Elliott on 03-19-2023 MCH (RBC) [Entitic mass] 27.5 pg 27.0-32.0 [facility] MCHC (RBC) [Mass/Vol] 30.5 g/dL 32-36 [facility] Platelets (Bld) [#/Vol] 304 10*3/uL 150-450 [facility] No Panel InformationOrdered By: Radha Elliott on 03-19-2023 Estimated GFR (MDRD) Amer 100 mL/min >60 [facility] Comment on above: GFR Calc Estimated GFR (MDRD) Non-Af Amer 83 mL/min >60 [facility] Comment on above: Non- GFR Calc 27.5 pg 27.0-32.0 [facility] 30.5 g/dL 32-36 [facility] 304 K/mm3 150-450 [facility] 83 mL/min >60 [facility] 100 mL/min >60 [facility] 43.4 RATIO - [facility] 3.9 g/dL 2.2-4.2 [facility] 0.8 RATIO 0.9-2.4 [facility] 107 U/L 45-117 [facility] 14 U/L - [facility] 26.0 mmol/L 21.0-32.0 [facility] Platelet mean volume Malick-Ec ker (Bld) [Entitic vol]Ordered By: Radha Elliott on 03-19-2023 Platelet mean volume (Bld) [Entitic vol] 9.4 fL 6.2-12.0 [facility] RBC Auto (Bld) [#/Vol]Ordere d By: Radha Elliott on 03-19-2023 RBC (Bld) [#/Vol] 4.07 10*6/uL 4.2-5.4 [facility] Serum or plasma calcium timbo urement (mass/volume)Ordered By: Radha Elliott on 03-19-2023 Calcium [Mass/Vol] 9.1 mg/dL 8.5-10.1 [facility] Serum or plasma creatinine m easurement (mass/volume)Ordered By: Radha Elliott on 03-19-2023 Creatinine [Mass/Vol] 0.74 mg/dL 0.55-1.02 [facility] Comment on above: The validity of the calculated GFR & GFRAA in patients over 70 years has not been determined. Clinical correlation is essential. Serum or plasma urea nitroge n measurement (mass/volume)Ordered By: Radha Elliott on 03-19-2023 Urea nitrogen [Mass/Vol] 32 mg/dL 7-18 [facility] Thin prep Papanicolaou smear with manual screeningOrdered By: Radha Elliott on 03-19-2023 Thin prep Papanicolaou smear with manual screening 3.3 g/dL 3.2-5.0 [facility] Thin prep Papanicolaou smear with manual screening 7 U/L 15-37 [facility] Thin prep Papanicolaou smear with manual screening 3 5-15 [facility] Basophil percentageOrdered B y: Radha Elliott on 03-12-2023 Basophil percentage 11.8 g/dL 12.0-15.0 [facility] Basophil percentage 97 mg/dL 74-106 [facility] Basophil percentage 6.7 g/dL 6.4-8.2 [facility] Basophil percentage 0.30 mg/dL 0.20-1.00 [facility] Basophil percentage 141 mmol/L 136-145 [facility] Basophil percentage 4.3 mmol/L 3.5-5.1 [facility] Basophil percentage 113 mmol/L 98-107 [facility] Basophils (Bld) [#/Vol] 7.4 10*3/uL 4.4-11.0 [facility] Bilirubin [Mass/Vol] 0.30 mg/dL 0.20-1.00 [facility] Comment on above: For patients on eltr ombopag therapy, use of Dimension [place] TBIL is not recommended. Chloride [Moles/Vol] 113 mmol/L 98-107 [facility] Glucose [Mass/Vol] 97 mg/dL 74-106 [facility] Hemoglobin (Bld) [Mass/Vol] 11.8 g/dL 12.0-15.0 [facility] Potassium [Moles/Vol] 4.3 mmol/L 3.5-5.1 [facility] Protein [Mass/Vol] 6.7 g/dL 6.4-8.2 [facility] Sodium [Moles/Vol] 141 mmol/L 136-145 [facility] WBC (Bld) [#/Vol] 7.4 10*3/uL 4.4-11.0 [facility] Determination of erythrocyte mean corpuscular volume (MCV)Ordered By: Radha Elliott on 03-12-2023 MCV (RBC) [Entitic vol] 89.7 fL 81-99 [facility] Erythrocyte distribution wid th ratioOrdered By: Radha Elliott on 03-12-2023 Erythrocyte distribution width (RBC) [Ratio] 13.6 % 11.6-14.6 [facility] Erythrocyte distribution wid th standard deviationOrdered By: Radha Elliott on 03-12-2023 Erythrocyte distribution width (RBC) [Entitic vol] 44.8 fL 35.1-43.9 [facility] Hematocrit Auto (Bld) [Volum e fraction]Ordered By: Radha Elliott on 03-12-2023 Hematocrit (Bld) [Volume fraction] 39.0 % 37-47 [facility] Laboratory - Chemistry and C hemistry - challengeOrdered By: Radha Elliott on 03-12-2023 Albumin/Globulin [Mass ratio] 0.9 {ratio} 0.9-2.4 [facility] ALP [Catalytic activity/Vol] 98 U/L 45-117 [facility] ALT [Catalytic activity/Vol] 13 U/L 13-56 [facility] CO2 [Moles/Vol] 26.0 mmol/L 21.0-32.0 [facility] Globulin (S) [Mass/Vol] 3.6 g/dL 2.2-4.2 [facility] Urea nitrogen/Creatinine [Mass ratio] 33.5 mg/mg 10-20 [facility] Laboratory - Hematology and Cell countsOrdered By: Radha Elliott on 03-12-2023 MCH (RBC) [Entitic mass] 27.1 pg 27.0-32.0 [facility] MCHC (RBC) [Mass/Vol] 30.3 g/dL 32-36 [facility] Platelets (Bld) [#/Vol] 321 10*3/uL 150-450 [facility] No Panel InformationOrdered By: Radha Elilott on 03-12-2023 Estimated GFR (MDRD) Amer 99 mL/min >60 [facility] Comment on above: GFR Calc Estimated GFR (MDRD) Non-Af Amer 82 mL/min >60 [facility] Comment on above: Non- GFR Calc 27.1 pg 27.0-32.0 [facility] 30.3 g/dL 32-36 [facility] 321 K/mm3 150-450 [facility] 82 mL/min >60 [facility] 99 mL/min >60 [facility] 33.5 RATIO 10-20 [facility] 3.6 g/dL 2.2-4.2 [facility] 0.9 RATIO 0.9-2.4 [facility] 98 U/L 45-117 [facility] 13 U/L 13-56 [facility] 26.0 mmol/L 21.0-32.0 [facility] Platelet mean volume Malick-Ec ker (Bld) [Entitic vol]Ordered By: Radha Elliott on 03-12-2023 Platelet mean volume (Bld) [Entitic vol] 9.3 fL 6.2-12.0 [facility] RBC Auto (Bld) [#/Vol]Ordere d By: Radha Elliott on 03-12-2023 RBC (Bld) [#/Vol] 4.35 10*6/uL 4.2-5.4 [facility] Serum or plasma calcium timbo urement (mass/volume)Ordered By: Radha Elliott on 03-12-2023 Calcium [Mass/Vol] 9.3 mg/dL 8.5-10.1 [facility] Serum or plasma creatinine m easurement (mass/volume)Ordered By: Radha Elliott on 03-12-2023 Creatinine [Mass/Vol] 0.75 mg/dL 0.55-1.02 [facility] Comment on above: The validity of the calculated GFR & GFRAA in patients over 70 years has not been determined. Clinical correlation is essential. Serum or plasma urea nitroge n measurement (mass/volume)Ordered By: Radha Elliott on 03-12-2023 Urea nitrogen [Mass/Vol] 25 mg/dL 7-18 [facility] Thin prep Papanicolaou smear with manual screeningOrdered By: Radha Elliott on 03-12-2023 Thin prep Papanicolaou smear with manual screening 3.1 g/dL 3.2-5.0 [facility] Thin prep Papanicolaou smear with manual screening 13 U/L 15-37 [facility] Thin prep Papanicolaou smear with manual screening 2 5-15 [facility] Basophil percentageOrdered B y: Radha Elliott on 03-05-2023 Basophil percentage 11.5 g/dL 12.0-15.0 [facility] Basophil percentage 112 mg/dL 74-106 [facility] Basophil percentage 6.7 g/dL 6.4-8.2 [facility] Basophil percentage 0.30 mg/dL 0.20-1.00 [facility] Basophil percentage 140 mmol/L 136-145 [facility] Basophil percentage 4.0 mmol/L 3.5-5.1 [facility] Basophil percentage 108 mmol/L 98-107 [facility] Basophils (Bld) [#/Vol] 7.7 10*3/uL 4.4-11.0 [facility] Bilirubin [Mass/Vol] 0.30 mg/dL 0.20-1.00 [facility] Comment on above: For patients on eltr ombopag therapy, use of Dimension [place] TBIL is not recommended. Chloride [Moles/Vol] 108 mmol/L 98-107 [facility] Glucose [Mass/Vol] 112 mg/dL 74-106 [facility] Comment on above: Fasting Glucose resu lt from 100 to 125 mg/dL suggests IMPAIRED HOMEOSTASIS per A.D.A. criteria. Hemoglobin (Bld) [Mass/Vol] 11.5 g/dL 12.0-15.0 [facility] Potassium [Moles/Vol] 4.0 mmol/L 3.5-5.1 [facility] Protein [Mass/Vol] 6.7 g/dL 6.4-8.2 [facility] Sodium [Moles/Vol] 140 mmol/L 136-145 [facility] WBC (Bld) [#/Vol] 7.7 10*3/uL 4.4-11.0 [facility] Determination of erythrocyte mean corpuscular volume (MCV)Ordered By: Radha Elliott on 03-05-2023 MCV (RBC) [Entitic vol] 90.4 fL 81-99 [facility] Erythrocyte distribution wid th ratioOrdered By: Radha Elliott on 03-05-2023 Erythrocyte distribution width (RBC) [Ratio] 13.5 % 11.6-14.6 [facility] Erythrocyte distribution wid th standard deviationOrdered By: Radhakristen Elliott on 03-05-2023 Erythrocyte distribution width (RBC) [Entitic vol] 44.5 fL 35.1-43.9 [facility] Hematocrit Auto (Bld) [Volum e fraction]Ordered By: Radhakristen Elliott on 03-05-2023 Hematocrit (Bld) [Volume fraction] 37.7 % 37-47 [facility] Laboratory - Chemistry and C hemistry - challengeOrdered By: Radha Elliott on 03-05-2023 Albumin/Globulin [Mass ratio] 0.9 {ratio} 0.9-2.4 [facility] ALP [Catalytic activity/Vol] 100 U/L 45-117 [facility] ALT [Catalytic activity/Vol] 12 U/L 13-56 [facility] CO2 [Moles/Vol] 29.0 mmol/L 21.0-32.0 [facility] Globulin (S) [Mass/Vol] 3.6 g/dL 2.2-4.2 [facility] Urea nitrogen/Creatinine [Mass ratio] 31.9 mg/mg 10-20 [facility] Laboratory - Hematology and Cell countsOrdered By: Radha Elliott on 03-05-2023 MCH (RBC) [Entitic mass] 27.6 pg 27.0-32.0 [facility] MCHC (RBC) [Mass/Vol] 30.5 g/dL 32-36 [facility] Platelets (Bld) [#/Vol] 306 10*3/uL 150-450 [facility] No Panel InformationOrdered By: Radha Elliott on 03-05-2023 Estimated GFR (MDRD) Amer 103 mL/min >60 [facility] Comment on above: GFR Calc Estimated GFR (MDRD) Non-Af Amer 85 mL/min >60 [facility] Comment on above: Non- GFR Calc 27.6 pg 27.0-32.0 [facility] 30.5 g/dL 32-36 [facility] 306 K/mm3 150-450 [facility] 85 mL/min >60 [facility] 103 mL/min >60 [facility] 31.9 RATIO 10-20 [facility] 3.6 g/dL 2.2-4.2 [facility] 0.9 RATIO 0.9-2.4 [facility] 100 U/L 45-117 [facility] 12 U/L 13-56 [facility] 29.0 mmol/L 21.0-32.0 [facility] Platelet mean volume Malick-Ec ker (Bld) [Entitic vol]Ordered By: Radha Elliott on 03-05-2023 Platelet mean volume (Bld) [Entitic vol] 9.1 fL 6.2-12.0 [facility] RBC Auto (Bld) [#/Vol]Ordere d By: Radha Elliott on 03-05-2023 RBC (Bld) [#/Vol] 4.17 10*6/uL 4.2-5.4 [facility] Serum or plasma calcium timbo urement (mass/volume)Ordered By: Radha Elliott on 03-05-2023 Calcium [Mass/Vol] 9.3 mg/dL 8.5-10.1 [facility] Serum or plasma creatinine m easurement (mass/volume)Ordered By: Radha Elliott on 03-05-2023 Creatinine [Mass/Vol] 0.72 mg/dL 0.55-1.02 [facility] Comment on above: The validity of the calculated GFR & GFRAA in patients over 70 years has not been determined. Clinical correlation is essential. Serum or plasma urea nitroge n measurement (mass/volume)Ordered By: Radha Elliott on 03-05-2023 Urea nitrogen [Mass/Vol] 23 mg/dL 7-18 [facility] Thin prep Papanicolaou smear with manual screeningOrdered By: Radha Elliott on 03-05-2023 Thin prep Papanicolaou smear with manual screening 3.1 g/dL 3.2-5.0 [facility] Thin prep Papanicolaou smear with manual screening 13 U/L 15-37 [facility] Thin prep Papanicolaou smear with manual screening 3 5-15 [facility] Basophil percentageOrdered B y: Radha Elliott on 02-26-2023 Basophil percentage 93 mg/dL 74-106 [facility] Basophil percentage 6.6 g/dL 6.4-8.2 [facility] Basophil percentage 0.40 mg/dL 0.20-1.00 [facility] Basophil percentage 141 mmol/L 136-145 [facility] Basophil percentage 4.0 mmol/L 3.5-5.1 [facility] Basophil percentage 108 mmol/L 98-107 [facility] Basophils (Bld) [#/Vol] 7.6 10*3/uL 4.4-11.0 [facility] Bilirubin [Mass/Vol] 0.40 mg/dL 0.20-1.00 [facility] Comment on above: For patients on eltr ombopag therapy, use of Dimension [place] TBIL is not recommended. Chloride [Moles/Vol] 108 mmol/L 98-107 [facility] Glucose [Mass/Vol] 93 mg/dL 74-106 [facility] Potassium [Moles/Vol] 4.0 mmol/L 3.5-5.1 [facility] Protein [Mass/Vol] 6.6 g/dL 6.4-8.2 [facility] Sodium [Moles/Vol] 141 mmol/L 136-145 [facility] WBC (Bld) [#/Vol] 7.6 10*3/uL 4.4-11.0 [facility] Blood erythrocytes count (nu mber/volume)Ordered By: Radha Elliott on 02-26-2023 RBC (Bld) [#/Vol] 4.03 10*6/uL 4.2-5.4 [facility] Blood hemoglobin measurement (mass/volume)Ordered By: Radha Elliott on 02-26-2023 Hemoglobin (Bld) [Mass/Vol] 11.2 g/dL 12.0-15.0 [facility] Blood platelet mean volumeOr dered By: Radha Elliott on 02-26-2023 Platelet mean volume (Bld) [Entitic vol] 9.3 fL 6.2-12.0 [facility] Determination of erythrocyte mean corpuscular volume (MCV)Ordered By: Radha Elliott on 02-26-2023 MCV (RBC) [Entitic vol] 91.8 fL 81-99 [facility] Hematocrit Auto (Bld) [Volum e fraction]Ordered By: Radha Elliott on 02-26-2023 Hematocrit (Bld) [Volume fraction] 37.0 % 37-47 [facility] Laboratory - Chemistry and C hemistry - challengeOrdered By: Radhakristen Elliott on 02-26-2023 ALP [Catalytic activity/Vol] 90 U/L 45-117 [facility] ALT [Catalytic activity/Vol] 12 U/L 13-56 [facility] CO2 [Moles/Vol] 27.0 mmol/L 21.0-32.0 [facility] Globulin (S) [Mass/Vol] 3.7 g/dL 2.2-4.2 [facility] Urea nitrogen/Creatinine [Mass ratio] 35.1 mg/mg 10-20 [facility] Laboratory - Hematology and Cell countsOrdered By: Radha Elliott on 02-26-2023 Erythrocyte distribution width (RBC) [Entitic vol] 45.9 fL 35.1-43.9 [facility] Erythrocyte distribution width (RBC) [Ratio] 13.6 % 11.6-14.6 [facility] MCH (RBC) [Entitic mass] 27.8 pg 27.0-32.0 [facility] MCHC Auto (RBC) [Mass/Vol]Or dered By: Radha Elliott on 02-26-2023 MCHC (RBC) [Mass/Vol] 30.3 g/dL 32-36 [facility] No Panel InformationOrdered By: Radha Elliott on 02-26-2023 Estimated GFR (MDRD) Amer 110 mL/min >60 [facility] Comment on above: GFR Calc Estimated GFR (MDRD) Non-Af Amer 91 mL/min >60 [facility] Comment on above: Non- GFR Calc 27.8 pg 27.0-32.0 [facility] 13.6 % 11.6-14.6 [facility] 45.9 fl 35.1-43.9 [facility] 91 mL/min >60 [facility] 110 mL/min >60 [facility] 35.1 RATIO 10-20 [facility] 3.7 g/dL 2.2-4.2 [facility] 90 U/L 45-117 [facility] 12 U/L 13-56 [facility] 27.0 mmol/L 21.0-32.0 [facility] Platelets bldOrdered By: Kuldip Elliott on 02-26-2023 Platelets (Bld) [#/Vol] 312 10*3/uL 150-450 [facility] Serum or plasma albumin timbo urement (mass/volume)Ordered By: Radha Elliott on 02-26-2023 Albumin [Mass/Vol] 2.9 g/dL 3.2-5.0 [facility] Serum or plasma albumin/glob ulin mass ratioOrdered By: Radha Elliott on 02-26-2023 Albumin/Globulin [Mass ratio] 0.8 {ratio} 0.9-2.4 [facility] Serum or plasma calcium timbo urement (mass/volume)Ordered By: Radha Elliott on 02-26-2023 Calcium [Mass/Vol] 8.7 mg/dL 8.5-10.1 [facility] Serum or plasma creatinine m easurement (mass/volume)Ordered By: Radha Elliott on 02-26-2023 Creatinine [Mass/Vol] 0.68 mg/dL 0.55-1.02 [facility] Comment on above: The validity of the calculated GFR & GFRAA in patients over 70 years has not been determined. Clinical correlation is essential. Serum or plasma urea nitroge n measurement (mass/volume)Ordered By: Radhakristen Elliott on 02-26-2023 Urea nitrogen [Mass/Vol] 24 mg/dL 7-18 [facility] Thin prep Papanicolaou smear with manual screeningOrdered By: Radhakristen Elliott on 02-26-2023 Thin prep Papanicolaou smear with manual screening 14 U/L 15-37 [facility] Thin prep Papanicolaou smear with manual screening 6 5-15 [facility] Basophil percentageOrdered B y: Radha Elliott on 02-19-2023 Basophil percentage 82 mg/dL 74-106 [facility] Basophil percentage 6.8 g/dL 6.4-8.2 [facility] Basophil percentage 0.40 mg/dL 0.20-1.00 [facility] Basophil percentage 138 mmol/L 136-145 [facility] Basophil percentage 3.7 mmol/L 3.5-5.1 [facility] Basophil percentage 106 mmol/L 98-107 [facility] Basophils (Bld) [#/Vol] 7.2 10*3/uL 4.4-11.0 [facility] Bilirubin [Mass/Vol] 0.40 mg/dL 0.20-1.00 [facility] Comment on above: For patients on eltr ombopag therapy, use of Dimension [place] TBIL is not recommended. Chloride [Moles/Vol] 106 mmol/L 98-107 [facility] Glucose [Mass/Vol] 82 mg/dL 74-106 [facility] Potassium [Moles/Vol] 3.7 mmol/L 3.5-5.1 [facility] Protein [Mass/Vol] 6.8 g/dL 6.4-8.2 [facility] Sodium [Moles/Vol] 138 mmol/L 136-145 [facility] WBC (Bld) [#/Vol] 7.2 10*3/uL 4.4-11.0 [facility] Blood erythrocytes count (nu mber/volume)Ordered By: Radha Elliott on 02-19-2023 RBC (Bld) [#/Vol] 4.23 10*6/uL 4.2-5.4 [facility] Blood hemoglobin measurement (mass/volume)Ordered By: Radha Elliott on 02-19-2023 Hemoglobin (Bld) [Mass/Vol] 11.8 g/dL 12.0-15.0 [facility] Blood platelet mean volumeOr dered By: Radha Elliott on 02-19-2023 Platelet mean volume (Bld) [Entitic vol] 9.3 fL 6.2-12.0 [facility] Determination of erythrocyte mean corpuscular volume (MCV)Ordered By: Radha Elliott on 02-19-2023 MCV (RBC) [Entitic vol] 93.4 fL 81-99 [facility] Hematocrit Auto (Bld) [Volum e fraction]Ordered By: Radha Elliott on 02-19-2023 Hematocrit (Bld) [Volume fraction] 39.5 % 37-47 [facility] Laboratory - Chemistry and C hemistry - challengeOrdered By: Radha Elliott on 02-19-2023 ALP [Catalytic activity/Vol] 103 U/L 45-117 [facility] ALT [Catalytic activity/Vol] 11 U/L 13-56 [facility] CO2 [Moles/Vol] 26.0 mmol/L 21.0-32.0 [facility] Globulin (S) [Mass/Vol] 3.7 g/dL 2.2-4.2 [facility] Urea nitrogen/Creatinine [Mass ratio] 33.3 mg/mg 10-20 [facility] Laboratory - Hematology and Cell countsOrdered By: Radha Elliott on 02-19-2023 Erythrocyte distribution width (RBC) [Entitic vol] 47.4 fL 35.1-43.9 [facility] Erythrocyte distribution width (RBC) [Ratio] 13.8 % 11.6-14.6 [facility] MCH (RBC) [Entitic mass] 27.9 pg 27.0-32.0 [facility] MCHC Auto (RBC) [Mass/Vol]Or dered By: Radha Elliott on 02-19-2023 MCHC (RBC) [Mass/Vol] 29.9 g/dL 32-36 [facility] No Panel InformationOrdered By: Radha Elliott on 02-19-2023 Estimated GFR (MDRD) Amer 98 mL/min >60 [facility] Comment on above: GFR Calc Estimated GFR (MDRD) Non-Af Amer 81 mL/min >60 [facility] Comment on above: Non- GFR Calc 27.9 pg 27.0-32.0 [facility] 13.8 % 11.6-14.6 [facility] 47.4 fl 35.1-43.9 [facility] 81 mL/min >60 [facility] 98 mL/min >60 [facility] 33.3 RATIO 10-20 [facility] 3.7 g/dL 2.2-4.2 [facility] 103 U/L 45-117 [facility] 11 U/L 13-56 [facility] 26.0 mmol/L 21.0-32.0 [facility] Platelets bldOrdered By: Kuldip Elliott on 02-19-2023 Platelets (Bld) [#/Vol] 334 10*3/uL 150-450 [facility] Serum or plasma albumin timbo urement (mass/volume)Ordered By: Radha Elliott on 02-19-2023 Albumin [Mass/Vol] 3.1 g/dL 3.2-5.0 [facility] Serum or plasma albumin/glob ulin mass ratioOrdered By: Radha Elliott on 02-19-2023 Albumin/Globulin [Mass ratio] 0.8 {ratio} 0.9-2.4 [facility] Serum or plasma calcium timbo urement (mass/volume)Ordered By: Radha Elliott on 02-19-2023 Calcium [Mass/Vol] 9.2 mg/dL 8.5-10.1 [facility] Serum or plasma creatinine m easurement (mass/volume)Ordered By: Radha Elliott on 02-19-2023 Creatinine [Mass/Vol] 0.75 mg/dL 0.55-1.02 [facility] Comment on above: The validity of the calculated GFR & GFRAA in patients over 70 years has not been determined. Clinical correlation is essential. Serum or plasma urea nitroge n measurement (mass/volume)Ordered By: Radha Elliott on 02-19-2023 Urea nitrogen [Mass/Vol] 25 mg/dL 7-18 [facility] Thin prep Papanicolaou smear with manual screeningOrdered By: Radha Elliott on 02-19-2023 Thin prep Papanicolaou smear with manual screening 11 U/L 15-37 [facility] Thin prep Papanicolaou smear with manual screening 6 5-15 [facility] Basophil percentageOrdered B y: Radha Elliott on 02-13-2023 Basophil percentage 97 mg/dL 74-106 [facility] Basophil percentage 6.7 g/dL 6.4-8.2 [facility] Basophil percentage 0.40 mg/dL 0.20-1.00 [facility] Basophil percentage 138 mmol/L 136-145 [facility] Basophil percentage 4.0 mmol/L 3.5-5.1 [facility] Basophil percentage 108 mmol/L 98-107 [facility] Basophils (Bld) [#/Vol] 7.8 10*3/uL 4.4-11.0 [facility] Bilirubin [Mass/Vol] 0.40 mg/dL 0.20-1.00 [facility] Comment on above: For patients on eltr ombopag therapy, use of Dimension [place] TBIL is not recommended. Chloride [Moles/Vol] 108 mmol/L 98-107 [facility] Glucose [Mass/Vol] 97 mg/dL 74-106 [facility] Potassium [Moles/Vol] 4.0 mmol/L 3.5-5.1 [facility] Protein [Mass/Vol] 6.7 g/dL 6.4-8.2 [facility] Sodium [Moles/Vol] 138 mmol/L 136-145 [facility] WBC (Bld) [#/Vol] 7.8 10*3/uL 4.4-11.0 [facility] Blood erythrocytes count (nu mber/volume)Ordered By: Radha Elliott on 02-13-2023 RBC (Bld) [#/Vol] 3.92 10*6/uL 4.2-5.4 [facility] Blood hemoglobin measurement (mass/volume)Ordered By: Radha Elliott on 02-13-2023 Hemoglobin (Bld) [Mass/Vol] 11.1 g/dL 12.0-15.0 [facility] Blood platelet mean volumeOr dered By: Radha Elliott on 02-13-2023 Platelet mean volume (Bld) [Entitic vol] 9.0 fL 6.2-12.0 [facility] Determination of erythrocyte mean corpuscular volume (MCV)Ordered By: Radha Elliott on 02-13-2023 MCV (RBC) [Entitic vol] 93.4 fL 81-99 [facility] Hematocrit Auto (Bld) [Volum e fraction]Ordered By: Radha Elliott on 02-13-2023 Hematocrit (Bld) [Volume fraction] 36.6 % 37-47 [facility] Laboratory - Chemistry and C hemistry - challengeOrdered By: Radha Elliott on 02-13-2023 ALP [Catalytic activity/Vol] 104 U/L 45-117 [facility] ALT [Catalytic activity/Vol] 14 U/L 13-56 [facility] CO2 [Moles/Vol] 26.0 mmol/L 21.0-32.0 [facility] Globulin (S) [Mass/Vol] 3.7 g/dL 2.2-4.2 [facility] Urea nitrogen/Creatinine [Mass ratio] 35.6 mg/mg 10-20 [facility] - Hematology and Cell countsOrdered By: Radha Elliott on 02-13-2023 Erythrocyte distribution width (RBC) [Entitic vol] 48.5 fL 35.1-43.9 [facility] Erythrocyte distribution width (RBC) [Ratio] 14.1 % 11.6-14.6 [facility] MCH (RBC) [Entitic mass] 28.3 pg 27.0-32.0 [facility] MCHC Auto (RBC) [Mass/Vol]Or dered By: Radha Elliott on 02-13-2023 MCHC (RBC) [Mass/Vol] 30.3 g/dL 32-36 [facility] No Panel InformationOrdered By: Radha Elliott on 02-13-2023 Estimated GFR (MDRD) Amer 111 mL/min >60 [facility] Comment on above: GFR Calc Estimated GFR (MDRD) Non-Af Amer 92 mL/min >60 [facility] Comment on above: Non- GFR Calc 28.3 pg 27.0-32.0 [facility] 14.1 % 11.6-14.6 [facility] 48.5 fl 35.1-43.9 [facility] 92 mL/min >60 [facility] 111 mL/min >60 [facility] 35.6 RATIO 10-20 [facility] 3.7 g/dL 2.2-4.2 [facility] 104 U/L 45-117 [facility] 14 U/L 13-56 [facility] 26.0 mmol/L 21.0-32.0 [facility] Platelets bldOrdered By: Kuldip Elliott on 02-13-2023 Platelets (Bld) [#/Vol] 342 10*3/uL 150-450 [facility] Serum or plasma albumin timbo urement (mass/volume)Ordered By: Radha Elliott on 02-13-2023 Albumin [Mass/Vol] 3.0 g/dL 3.2-5.0 [facility] Serum or plasma albumin/glob ulin mass ratioOrdered By: Radha Elliott on 02-13-2023 Albumin/Globulin [Mass ratio] 0.8 {ratio} 0.9-2.4 [facility] Serum or plasma calcium timbo urement (mass/volume)Ordered By: Radha Elliott on 02-13-2023 Calcium [Mass/Vol] 8.9 mg/dL 8.5-10.1 [facility] Serum or plasma creatinine m easurement (mass/volume)Ordered By: Radha Elliott on 02-13-2023 Creatinine [Mass/Vol] 0.67 mg/dL 0.55-1.02 [facility] Comment on above: The validity of the calculated GFR & GFRAA in patients over 70 years has not been determined. Clinical correlation is essential. Serum or plasma urea nitroge n measurement (mass/volume)Ordered By: Radha Elliott on 02-13-2023 Urea nitrogen [Mass/Vol] 24 mg/dL 7-18 [facility] Thin prep Papanicolaou smear with manual screeningOrdered By: Radhakristen Elliott on 02-13-2023 Thin prep Papanicolaou smear with manual screening 14 U/L 15-37 [facility] Thin prep Papanicolaou smear with manual screening 4 5-15 [facility] Throat specimen bacteria kan ntification by cultureOrdered By: Radha Elliott on 02-07-2023 Bacteria identified Cx Nom (Throat) streptococcus isolated. [facility] Basophil percentageOrdered B y: Radha Elliott on 02-06-2023 Basophil percentage 99 mg/dL 74-106 [facility] Basophil percentage 6.4 g/dL 6.4-8.2 [facility] Basophil percentage 0.30 mg/dL 0.20-1.00 [facility] Basophil percentage 140 mmol/L 136-145 [facility] Basophil percentage 3.9 mmol/L 3.5-5.1 [facility] Basophil percentage 108 mmol/L 98-107 [facility] Basophils (Bld) [#/Vol] 8.1 10*3/uL 4.4-11.0 [facility] Bilirubin [Mass/Vol] 0.30 mg/dL 0.20-1.00 [facility] Comment on above: For patients on eltr ombopag therapy, use of Dimension [place] TBIL is not recommended. Chloride [Moles/Vol] 108 mmol/L 98-107 [facility] Glucose [Mass/Vol] 99 mg/dL 74-106 [facility] Potassium [Moles/Vol] 3.9 mmol/L 3.5-5.1 [facility] Protein [Mass/Vol] 6.4 g/dL 6.4-8.2 [facility] Sodium [Moles/Vol] 140 mmol/L 136-145 [facility] WBC (Bld) [#/Vol] 8.1 10*3/uL 4.4-11.0 [facility] Blood erythrocytes count (nu mber/volume)Ordered By: Radha Elliott on 02-06-2023 RBC (Bld) [#/Vol] 3.60 10*6/uL 4.2-5.4 [facility] Blood hemoglobin measurement (mass/volume)Ordered By: Radha Elliott on 02-06-2023 Hemoglobin (Bld) [Mass/Vol] 10.1 g/dL 12.0-15.0 [facility] Blood platelet mean volumeOr dered By: Radha Elliott on 02-06-2023 Platelet mean volume (Bld) [Entitic vol] 9.0 fL 6.2-12.0 [facility] Determination of erythrocyte mean corpuscular volume (MCV)Ordered By: Radha Elliott on 02-06-2023 MCV (RBC) [Entitic vol] 95.6 fL 81-99 [facility] Hematocrit Auto (Bld) [Volum e fraction]Ordered By: Radha Elliott on 02-06-2023 Hematocrit (Bld) [Volume fraction] 34.4 % 37-47 [facility] Laboratory - Chemistry and C hemistry - challengeOrdered By: Radha Elliott on 02-06-2023 ALP [Catalytic activity/Vol] 114 U/L 45-117 [facility] ALT [Catalytic activity/Vol] 13 U/L 13-56 [facility] CO2 [Moles/Vol] 28.0 mmol/L 21.0-32.0 [facility] Globulin (S) [Mass/Vol] 3.7 g/dL 2.2-4.2 [facility] Urea nitrogen/Creatinine [Mass ratio] 26.5 mg/mg 10-20 [facility] Laboratory - Hematology and Cell countsOrdered By: Radha Elliott on 02-06-2023 Erythrocyte distribution width (RBC) [Entitic vol] 50.0 fL 35.1-43.9 [facility] Erythrocyte distribution width (RBC) [Ratio] 14.2 % 11.6-14.6 [facility] MCH (RBC) [Entitic mass] 28.1 pg 27.0-32.0 [facility] MCHC Auto (RBC) [Mass/Vol]Or dered By: Radha Elliott on 02-06-2023 MCHC (RBC) [Mass/Vol] 29.4 g/dL 32-36 [facility] No Panel InformationOrdered By: Radha Elliott on 02-06-2023 Estimated GFR (MDRD) Amer 104 mL/min >60 [facility] Comment on above: GFR Calc Estimated GFR (MDRD) Non-Af Amer 86 mL/min >60 [facility] Comment on above: Non- GFR Calc 28.1 pg 27.0-32.0 [facility] 14.2 % 11.6-14.6 [facility] 50.0 fl 35.1-43.9 [facility] 86 mL/min >60 [facility] 104 mL/min >60 [facility] 26.5 RATIO 10-20 [facility] 3.7 g/dL 2.2-4.2 [facility] 114 U/L 45-117 [facility] 13 U/L 13-56 [facility] 28.0 mmol/L 21.0-32.0 [facility] Platelets bldOrdered By: Kuldip Elliott on 02-06-2023 Platelets (Bld) [#/Vol] 363 10*3/uL 150-450 [facility] Serum or plasma albumin timbo urement (mass/volume)Ordered By: Radha Elliott on 02-06-2023 Albumin [Mass/Vol] 2.7 g/dL 3.2-5.0 [facility] Serum or plasma albumin/glob ulin mass ratioOrdered By: Radha Elliott on 02-06-2023 Albumin/Globulin [Mass ratio] 0.7 {ratio} 0.9-2.4 [facility] Serum or plasma calcium timbo urement (mass/volume)Ordered By: Radha Elliott on 02-06-2023 Calcium [Mass/Vol] 9.0 mg/dL 8.5-10.1 [facility] Serum or plasma creatinine m easurement (mass/volume)Ordered By: Radha Elliott on 02-06-2023 Creatinine [Mass/Vol] 0.72 mg/dL 0.55-1.02 [facility] Comment on above: The validity of the calculated GFR & GFRAA in patients over 70 years has not been determined. Clinical correlation is essential. Serum or plasma urea nitroge n measurement (mass/volume)Ordered By: Radha Elliott on 02-06-2023 Urea nitrogen [Mass/Vol] 19 mg/dL 7-18 [facility] Thin prep Papanicolaou smear with manual screeningOrdered By: Radhakristen Elliott on 02-06-2023 Thin prep Papanicolaou smear with manual screening 15 U/L 15-37 [facility] Thin prep Papanicolaou smear with manual screening 4 5-15 [facility] Basophil percentageOrdered B y: Radha Elliott on 01-29-2023 Basophil percentage 61 mg/dL 74-106 [facility] Basophil percentage 6.8 g/dL 6.4-8.2 [facility] Basophil percentage 0.40 mg/dL 0.20-1.00 [facility] Basophil percentage 144 mmol/L 136-145 [facility] Basophil percentage 4.0 mmol/L 3.5-5.1 [facility] Basophil percentage 110 mmol/L 98-107 [facility] Basophils (Bld) [#/Vol] 7.1 10*3/uL 4.4-11.0 [facility] Bilirubin [Mass/Vol] 0.40 mg/dL 0.20-1.00 [facility] Comment on above: For patients on eltr ombopag therapy, use of Dimension [place] TBIL is not recommended. Chloride [Moles/Vol] 110 mmol/L 98-107 [facility] Glucose [Mass/Vol] 61 mg/dL 74-106 [facility] Potassium [Moles/Vol] 4.0 mmol/L 3.5-5.1 [facility] Protein [Mass/Vol] 6.8 g/dL 6.4-8.2 [facility] Sodium [Moles/Vol] 144 mmol/L 136-145 [facility] WBC (Bld) [#/Vol] 7.1 10*3/uL 4.4-11.0 [facility] Blood erythrocytes count (nu mber/volume)Ordered By: aRdha Elliott on 01-29-2023 RBC (Bld) [#/Vol] 3.56 10*6/uL 4.2-5.4 [facility] Blood hemoglobin measurement (mass/volume)Ordered By: Radha Elliott on 01-29-2023 Hemoglobin (Bld) [Mass/Vol] 10.4 g/dL 12.0-15.0 [facility] Blood platelet mean volumeOr dered By: Radha Elliott on 01-29-2023 Platelet mean volume (Bld) [Entitic vol] 9.2 fL 6.2-12.0 [facility] Determination of erythrocyte mean corpuscular volume (MCV)Ordered By: Radha Elliott on 01-29-2023 MCV (RBC) [Entitic vol] 98.3 fL 81-99 [facility] Hematocrit Auto (Bld) [Volum e fraction]Ordered By: Radha Elliott on 01-29-2023 Hematocrit (Bld) [Volume fraction] 35.0 % 37-47 [facility] Laboratory - Chemistry and C hemistry - challengeOrdered By: Radhakristen Elliott on 01-29-2023 ALP [Catalytic activity/Vol] 122 U/L 45-117 [facility] ALT [Catalytic activity/Vol] 14 U/L 13-56 [facility] CO2 [Moles/Vol] 28.0 mmol/L 21.0-32.0 [facility] Globulin (S) [Mass/Vol] 3.8 g/dL 2.2-4.2 [facility] Urea nitrogen/Creatinine [Mass ratio] 33.0 mg/mg 10-20 [facility] Laboratory - Hematology and Cell countsOrdered By: Radha Elliott on 01-29-2023 Erythrocyte distribution width (RBC) [Entitic vol] 53.1 fL 35.1-43.9 [facility] Erythrocyte distribution width (RBC) [Ratio] 14.6 % 11.6-14.6 [facility] MCH (RBC) [Entitic mass] 29.2 pg 27.0-32.0 [facility] MCHC Auto (RBC) [Mass/Vol]Or dered By: Radha Elliott on 01-29-2023 MCHC (RBC) [Mass/Vol] 29.7 g/dL 32-36 [facility] No Panel InformationOrdered By: Radha Elliott on 01-29-2023 Estimated GFR (MDRD) Amer 113 mL/min >60 [facility] Comment on above: GFR Calc Estimated GFR (MDRD) Non-Af Amer 93 mL/min >60 [facility] Comment on above: Non- GFR Calc 29.2 pg 27.0-32.0 [facility] 14.6 % 11.6-14.6 [facility] 53.1 fl 35.1-43.9 [facility] 93 mL/min >60 [facility] 113 mL/min >60 [facility] 33.0 RATIO 10-20 [facility] 3.8 g/dL 2.2-4.2 [facility] 122 U/L 45-117 [facility] 14 U/L 13-56 [facility] 28.0 mmol/L 21.0-32.0 [facility] Platelets bldOrdered By: Kuldip Elliott on 01-29-2023 Platelets (Bld) [#/Vol] 343 10*3/uL 150-450 [facility] Serum or plasma albumin timbo urement (mass/volume)Ordered By: Radha Elliott on 01-29-2023 Albumin [Mass/Vol] 3.0 g/dL 3.2-5.0 [facility] Serum or plasma albumin/glob ulin mass ratioOrdered By: Radha Elliott on 01-29-2023 Albumin/Globulin [Mass ratio] 0.8 {ratio} 0.9-2.4 [facility] Serum or plasma calcium timbo urement (mass/volume)Ordered By: Radha Elliott on 01-29-2023 Calcium [Mass/Vol] 8.8 mg/dL 8.5-10.1 [facility] Serum or plasma creatinine m easurement (mass/volume)Ordered By: Radha Elliott on 01-29-2023 Creatinine [Mass/Vol] 0.67 mg/dL 0.55-1.02 [facility] Comment on above: The validity of the calculated GFR & GFRAA in patients over 70 years has not been determined. Clinical correlation is essential. Serum or plasma urea nitroge n measurement (mass/volume)Ordered By: Radha Elliott on 01-29-2023 Urea nitrogen [Mass/Vol] 22 mg/dL - [facility] Thin prep Papanicolaou smear with manual screeningOrdered By: Radha Elliott on 01-29-2023 Thin prep Papanicolaou smear with manual screening 13 U/L 15- [facility] Thin prep Papanicolaou smear with manual screening 6 5-15 [facility] 36on 01-22-2023 36 Called Omar metcalf ([phone]) and spoke with Paula, patient's nurse, to pass along updated orders per Ty. Imaging due: 03/29/2023 Normal [facility] Basophil percentageOrdered B y: Radha Elliott on 01-22-2023 Basophil percentage 58 mg/dL 74-106 [facility] Basophil percentage 6.8 g/dL 6.4-8.2 [facility] Basophil percentage 0.50 mg/dL 0.20-1.00 [facility] Basophil percentage 139 mmol/L 136-145 [facility] Basophil percentage 3.9 mmol/L 3.5-5.1 [facility] Basophil percentage 106 mmol/L 98-107 [facility] Basophils (Bld) [#/Vol] 8.1 10*3/uL 4.4-11.0 [facility] Bilirubin [Mass/Vol] 0.50 mg/dL 0.20-1.00 [facility] Comment on above: For patients on eltr ombopag therapy, use of Dimension [place] TBIL is not recommended. Chloride [Moles/Vol] 106 mmol/L 98-107 [facility] Glucose [Mass/Vol] 58 mg/dL 74-106 [facility] Potassium [Moles/Vol] 3.9 mmol/L 3.5-5.1 [facility] Protein [Mass/Vol] 6.8 g/dL 6.4-8.2 [facility] Sodium [Moles/Vol] 139 mmol/L 136-145 [facility] WBC (Bld) [#/Vol] 8.1 10*3/uL 4.4-11.0 [facility] Blood erythrocytes count (nu mber/volume)Ordered By: Radha Elliott on 01-22-2023 RBC (Bld) [#/Vol] 3.62 10*6/uL 4.2-5.4 [facility] Blood hemoglobin measurement (mass/volume)Ordered By: Radha Elliott on 01-22-2023 Hemoglobin (Bld) [Mass/Vol] 10.4 g/dL 12.0-15.0 [facility] Blood platelet mean volumeOr dered By: Radha Elliott on 01-22-2023 Platelet mean volume (Bld) [Entitic vol] 9.3 fL 6.2-12.0 [facility] Determination of erythrocyte mean corpuscular volume (MCV)Ordered By: Radha Elliott on 01-22-2023 MCV (RBC) [Entitic vol] 98.9 fL 81-99 [facility] Hematocrit Auto (Bld) [Volum e fraction]Ordered By: Radha Elliott on 01-22-2023 Hematocrit (Bld) [Volume fraction] 35.8 % 37-47 [facility] Laboratory - Chemistry and C hemistry - challengeOrdered By: Radha Elliott on 01-22-2023 ALP [Catalytic activity/Vol] 147 U/L 45-117 [facility] ALT [Catalytic activity/Vol] 15 U/L 13-56 [facility] CO2 [Moles/Vol] 28.0 mmol/L 21.0-32.0 [facility] Globulin (S) [Mass/Vol] 3.8 g/dL 2.2-4.2 [facility] Urea nitrogen/Creatinine [Mass ratio] 29.2 mg/mg 10-20 [facility] Laboratory - Hematology and Cell countsOrdered By: Radha Elliott on 01-22-2023 Erythrocyte distribution width (RBC) [Entitic vol] 55.4 fL 35.1-43.9 [facility] Erythrocyte distribution width (RBC) [Ratio] 15.3 % 11.6-14.6 [facility] MCH (RBC) [Entitic mass] 28.7 pg 27.0-32.0 [facility] MCHC Auto (RBC) [Mass/Vol]Or dered By: Radha Elliott on 01-22-2023 MCHC (RBC) [Mass/Vol] 29.1 g/dL 32-36 [facility] No Panel InformationOrdered By: Radha Elliott on 01-22-2023 Estimated GFR (MDRD) Amer 104 mL/min >60 [facility] Comment on above: GFR Calc Estimated GFR (MDRD) Non-Af Amer 86 mL/min >60 [facility] Comment on above: Non- GFR Calc 28.7 pg 27.0-32.0 [facility] 15.3 % 11.6-14.6 [facility] 55.4 fl 35.1-43.9 [facility] 86 mL/min >60 [facility] 104 mL/min >60 [facility] 29.2 RATIO 10-20 [facility] 3.8 g/dL 2.2-4.2 [facility] 147 U/L 45-117 [facility] 15 U/L 13-56 [facility] 28.0 mmol/L 21.0-32.0 [facility] Platelets bldOrdered By: Kuldip Elliott on 01-22-2023 Platelets (Bld) [#/Vol] 343 10*3/uL 150-450 [facility] Serum or plasma albumin timbo urement (mass/volume)Ordered By: Radha Elliott on 01-22-2023 Albumin [Mass/Vol] 3.0 g/dL 3.2-5.0 [facility] Serum or plasma albumin/glob ulin mass ratioOrdered By: Radha Elliott on 01-22-2023 Albumin/Globulin [Mass ratio] 0.8 {ratio} 0.9-2.4 [facility] Serum or plasma calcium timbo urement (mass/volume)Ordered By: Radha Elliott on 01-22-2023 Calcium [Mass/Vol] 8.8 mg/dL 8.5-10.1 [facility] Serum or plasma creatinine m easurement (mass/volume)Ordered By: Radha Elliott on 01-22-2023 Creatinine [Mass/Vol] 0.72 mg/dL 0.55-1.02 [facility] Comment on above: The validity of the calculated GFR & GFRAA in patients over 70 years has not been determined. Clinical correlation is essential. Serum or plasma urea nitroge n measurement (mass/volume)Ordered By: Radha Elliott on 01-22-2023 Urea nitrogen [Mass/Vol] 21 mg/dL 7-18 [facility] Thin prep Papanicolaou smear with manual screeningOrdered By: Radha Elliott on 01-22-2023 Thin prep Papanicolaou smear with manual screening 16 U/L 15-37 [facility] Thin prep Papanicolaou smear with manual screening 5 5-15 [facility] 36on 01-19-2023 36 Films reviewed. Cont inue WBAT RLE. Continue hip and knee ROM. Will need repeat 2v right femur at the 3 month post op john. Normal [facility] 36 Xrays of right femur taken on 01/10/23: Normal [facility] Basophil percentageOrdered B y: Radha Elliott on 01-15-2023 Basophil percentage 80 mg/dL 74-106 [facility] Basophil percentage 6.9 g/dL 6.4-8.2 [facility] Basophil percentage 0.50 mg/dL 0.20-1.00 [facility] Basophil percentage 139 mmol/L 136-145 [facility] Basophil percentage 4.0 mmol/L 3.5-5.1 [facility] Basophil percentage 106 mmol/L 98-107 [facility] Basophils (Bld) [#/Vol] 8.3 10*3/uL 4.4-11.0 [facility] Bilirubin [Mass/Vol] 0.50 mg/dL 0.20-1.00 [facility] Comment on above: For patients on eltr ombopag therapy, use of Dimension [place] TBIL is not recommended. Chloride [Moles/Vol] 106 mmol/L 98-107 [facility] Glucose [Mass/Vol] 80 mg/dL 74-106 [facility] Potassium [Moles/Vol] 4.0 mmol/L 3.5-5.1 [facility] Protein [Mass/Vol] 6.9 g/dL 6.4-8.2 [facility] Sodium [Moles/Vol] 139 mmol/L 136-145 [facility] WBC (Bld) [#/Vol] 8.3 10*3/uL 4.4-11.0 [facility] Blood erythrocytes count (nu mber/volume)Ordered By: Radha Elliott on 01-15-2023 RBC (Bld) [#/Vol] 3.30 10*6/uL 4.2-5.4 [facility] Blood hemoglobin measurement (mass/volume)Ordered By: Radha Elliott on 01-15-2023 Hemoglobin (Bld) [Mass/Vol] 9.7 g/dL 12.0-15.0 [facility] Blood platelet mean volumeOr dered By: Radha Elliott on 01-15-2023 Platelet mean volume (Bld) [Entitic vol] 8.9 fL 6.2-12.0 [facility] Determination of erythrocyte mean corpuscular volume (MCV)Ordered By: Radha Elliott on 01-15-2023 MCV (RBC) [Entitic vol] 99.1 fL 81-99 [facility] Hematocrit Auto (Bld) [Volum e fraction]Ordered By: Radha Elliott on 01-15-2023 Hematocrit (Bld) [Volume fraction] 32.7 % 37-47 [facility] Laboratory - Chemistry and C hemistry - challengeOrdered By: Radhakristen Elliott on 01-15-2023 ALP [Catalytic activity/Vol] 191 U/L 45-117 [facility] ALT [Catalytic activity/Vol] 16 U/L 13-56 [facility] CO2 [Moles/Vol] 27.0 mmol/L 21.0-32.0 [facility] Globulin (S) [Mass/Vol] 4.0 g/dL 2.2-4.2 [facility] Urea nitrogen/Creatinine [Mass ratio] 32.8 mg/mg 10-20 [facility] Laboratory - Hematology and Cell countsOrdered By: Radha Elliott on 01-15-2023 Erythrocyte distribution width (RBC) [Entitic vol] 60.5 fL 35.1-43.9 [facility] Erythrocyte distribution width (RBC) [Ratio] 16.6 % 11.6-14.6 [facility] MCH (RBC) [Entitic mass] 29.4 pg 27.0-32.0 [facility] MCHC Auto (RBC) [Mass/Vol]Or dered By: Radha Elliott on 01-15-2023 MCHC (RBC) [Mass/Vol] 29.7 g/dL 32-36 [facility] No Panel InformationOrdered By: Radha Elliott on 01-15-2023 Estimated GFR (MDRD) Amer 112 mL/min >60 [facility] Comment on above: GFR Calc Estimated GFR (MDRD) Non-Af Amer 93 mL/min >60 [facility] Comment on above: Non- GFR Calc Vitamin D 25-Hydroxy 82.0 ng/mL [facility] Comment on above: Vitamin D 25(OH) Sta tus Range Deficiency <20 ng/mL (50nmol/L) Insufficiency 20 - 30 ng/mL (50 - 75 nmol/L) Sufficiency 30 - 100 ng/mL (75 - 250 nmol/L) Toxicity >100 ng/mL (>250 nmol/L) 29.4 pg 27.0-32.0 [facility] 16.6 % 11.6-14.6 [facility] 60.5 fl 35.1-43.9 [facility] 93 mL/min >60 [facility] 112 mL/min >60 [facility] 32.8 RATIO 10-20 [facility] 4.0 g/dL 2.2-4.2 [facility] 191 U/L 45-117 [facility] 16 U/L 13-56 [facility] 27.0 mmol/L 21.0-32.0 [facility] 82.0 ng/mL [facility] Platelets bldOrdered By: Kuldip Elliott on 01-15-2023 Platelets (Bld) [#/Vol] 494 10*3/uL 150-450 [facility] Serum or plasma albumin timbo urement (mass/volume)Ordered By: Radha Elliott on 01-15-2023 Albumin [Mass/Vol] 2.9 g/dL 3.2-5.0 [facility] Serum or plasma albumin/glob ulin mass ratioOrdered By: Radha Elliott on 01-15-2023 Albumin/Globulin [Mass ratio] 0.7 {ratio} 0.9-2.4 [facility] Serum or plasma calcium timbo urement (mass/volume)Ordered By: Radha Elliott on 01-15-2023 Calcium [Mass/Vol] 8.6 mg/dL 8.5-10.1 [facility] Serum or plasma creatinine m easurement (mass/volume)Ordered By: Radha Elliott on 01-15-2023 Creatinine [Mass/Vol] 0.67 mg/dL 0.55-1.02 [facility] Comment on above: The validity of the calculated GFR & GFRAA in patients over 70 years has not been determined. Clinical correlation is essential. Serum or plasma urea nitroge n measurement (mass/volume)Ordered By: Radha Elliott on 01-15-2023 Urea nitrogen [Mass/Vol] 22 mg/dL 7-18 [facility] Thin prep Papanicolaou smear with manual screeningOrdered By: Radha Elliott on 01-15-2023 Thin prep Papanicolaou smear with manual screening 17 U/L 15-37 [facility] Thin prep Papanicolaou smear with manual screening 6 5-15 [facility]ORDon 01-13-2023 [facility] Patient Choice Patient Name: DONNA MARSH Date of : 1955 [facility] Absolute lymphocyte countOrd ered By: Radha Elliott on 01-10-2023 Lymphocytes Auto (Unsp spec) [#/Vol] 3.08 10*3/uL 0.83-4.51 [facility] Bacteria identified Cx Nom ( U)Ordered By: Radha Elliott on 01-10-2023 Culture, urine Escherichia coli [facility] Basophil percentageOrdered B y: Radha Elliott on 01-10-2023 Basophil percentage 0 SEEN /hpf 0-5 [facility] Basophils (Bld) [#/Vol] 11.6 10*3/uL 4.4-11.0 [facility] Basophils (Bld) [#/Vol] 7.3 10*3/uL 2.0-7.7 [facility] Basophils/100 WBC (Bld) 0.4 % 0-1 [facility] Basophils/100 WBC (Bld) 62.8 % 47-70 [facility] Basophils/100 WBC (Bld) 3.4 % 0-5 [facility] Eosinophils/100 WBC (Bld) 3.4 % 0-5 [facility] Neutrophils (Bld) [#/Vol] 7.3 10*3/uL 2.0-7.7 [facility] Neutrophils/100 WBC (Bld) 62.8 % 47-70 [facility] WBC (Bld) [#/Vol] 11.6 10*3/uL 4.4-11.0 [facility] Bilirubin Test strip Ql (U)O rdered By: Radha Elliott on 01-10-2023 Bilirubin Ql (U) Negative Negative [facility] Blood erythrocytes count (nu mber/volume)Ordered By: Radha Elliott on 01-10-2023 RBC (Bld) [#/Vol] 3.22 10*6/uL 4.2-5.4 [facility] Blood hemoglobin measurement (mass/volume)Ordered By: Radha Elliott on 01-10-2023 Hemoglobin (Bld) [Mass/Vol] 9.4 g/dL 12.0-15.0 [facility] Blood lymphocytes/100 leukoc ytesOrdered By: Radha Elliott on 01-10-2023 Lymphocytes/100 WBC (Bld) 26.5 % 19-41 [facility] Blood manual differential co mment interpretation (narrative result)Ordered By: Radha Elliott on 01-10-2023 Manual differential comment Minesh (Bld) [Interp] SCANNED [facility] Blood monocytes/100 leukocyt esOrdered By: Radha Elliott on 01-10-2023 Monocytes/100 WBC (Bld) 6.4 % 0-10 [facility] Blood platelet mean volumeOr dered By: Radha Elliott on 01-10-2023 Platelet mean volume (Bld) [Entitic vol] 9.0 fL 6.2-12.0 [facility] Culture, urineOrdered By: Jayy Elliott on 01-10-2023 Bacteria identified Cx Nom (U) Escherichia coli [facility] Determination of erythrocyte mean corpuscular volume (MCV)Ordered By: Radha Elliott on 01-10-2023 MCV (RBC) [Entitic vol] 100.9 fL 81-99 [facility] Hematocrit Auto (Bld) [Volum e fraction]Ordered By: Radha Elliott on 01-10-2023 Hematocrit (Bld) [Volume fraction] 32.5 % 37-47 [facility] Ketones Test strip Ql (U)Ord ered By: Radha Elliott on 01-10-2023 Ketones Ql (U) Negative Negative [facility] Laboratory - Hematology and Cell countsOrdered By: Radha Elliott on 01-10-2023 Anisocytosis Ql (Bld) 2+ [facility] Erythrocyte distribution width (RBC) [Entitic vol] 65.1 fL 35.1-43.9 [facility] Erythrocyte distribution width (RBC) [Ratio] 17.7 % 11.6-14.6 [facility] Immature granulocytes/100 WBC (Bld) 0.500 % 0.0-0.9 [facility] Comment on above: IG% - Immature Granu locytes (promyelocytes, myelocytes and metamyelocytes) > 1% indicates that a LEFT SHIFT is Present. MCH (RBC) [Entitic mass] 29.2 pg 27.0-32.0 [facility] Nucleated RBC/100 WBC (Bld) [Ratio] 0 % 0-5 [facility] MCHC Auto (RBC) [Mass/Vol]Or dered By: Radha Elliott on 01-10-2023 MCHC (RBC) [Mass/Vol] 28.9 g/dL 32-36 [facility] Macrocytes detectionOrdered By: Radha Elliott on 01-10-2023 Macrocytes Ql (Bld) 1+ [facility] Mucus LM Ql (Urine sed)Order ed By: Radha Elliott on 01-10-2023 Mucus Ql (Urine sed) 1+ /hpf [facility] Nitrite Test strip Ql (U)Ord ered By: Radha Elliott on 01-10-2023 Nitrite Ql (U) Negative Negative [facility] No Panel InformationOrdered By: Radha Elliott on 01-10-2023 29.2 pg 27.0-32.0 [facility] 17.7 % 11.6-14.6 [facility] 65.1 fl 35.1-43.9 [facility] 0.500 % 0.0-0.9 [facility] 0 % 0-5 [facility] 2+ [facility] Platelets bldOrdered By: Kuldip Elliott on 01-10-2023 Platelets (Bld) [#/Vol] 680 10*3/uL 150-450 [facility] Protein Test strip Ql (U)Ord ered By: Radha Elliott on 01-10-2023 Protein Ql (U) Negative Negative [facility] Squamous epithelial cells de tection in urine sediment by light microscopyOrdered By: Radha Elliott on 01-10-2023 Epithelial cells.squamous LM Ql (Urine sed) 0-5 SEEN /hpf 5-10 [facility] Thin prep Papanicolaou smear with manual screeningOrdered By: Radha Elliott on 01-10-2023 Thin prep Papanicolaou smear with manual screening 1+ [facility] Urine blood detectionOrdered By: Radha Elliott on 01-10-2023 RBC Ql (U) Negative Negative [facility] RBC Ql (U) 0-5 SEEN /hpf 0-5 [facility] Urine clarityOrdered By: Kuldip Elliott on 01-10-2023 Clarity (U) Clear Clear [facility] Urine color determinationOrd ered By: Radha Elliott on 01-10-2023 Color (U) Yellow Yellow [facility] Urine glucose detectionOrder ed By: Radha Elliott on 01-10-2023 Glucose Ql (U) Normal mg/dl Normal [facility] Urine leukocyte esterase det ection by dipstickOrdered By: Radha Elliott on 01-10-2023 Leukocyte esterase Test strip Ql (U) Negative Negative [facility] Urine pHOrdered By: Radha oquendo on 01-10-2023 pH (U) 6.0 [pH] 5.0 - 8.0 [facility] Urine sediment bacteria coun t by microscopy (number/high power field)Ordered By: Radha Elliott on 01-10-2023 Bacteria LM.HPF (Urine sed) [#/Area] 1 /[HPF] None Seen [facility] Urine specific gravity measu rementOrdered By: Radha Elliott on 01-10-2023 Specific gravity (U) [Rel density] 1.010 1.002-1.030 [facility] Urobilinogen Auto test strip Ql (U)Ordered By: Radha Elliott on 01-10-2023 Urobilinogen Ql (U) Normal mg/dl Normal [facility] Absolute lymphocyte countOrd ered By: Radha Elliott on 01-08-2023 Lymphocytes Auto (Unsp spec) [#/Vol] 3.88 10*3/uL 0.83-4.51 [facility] Basophil percentageOrdered B y: Radha Elliott on 01-08-2023 Basophil percentage 97 mg/dL 74-106 [facility] Basophil percentage 6.9 g/dL 6.4-8.2 [facility] Basophil percentage 0.50 mg/dL 0.20-1.00 [facility] Basophil percentage 138 mmol/L 136-145 [facility] Basophil percentage 4.6 mmol/L 3.5-5.1 [facility] Basophil percentage 108 mmol/L 98-107 [facility] Basophils (Bld) [#/Vol] 12.9 10*3/uL 4.4-11.0 [facility] Basophils (Bld) [#/Vol] 7.7 10*3/uL 2.0-7.7 [facility] Basophils/100 WBC (Bld) 0.4 % 0-1 [facility] Basophils/100 WBC (Bld) 59.7 % 47-70 [facility] Basophils/100 WBC (Bld) 3.3 % 0-5 [facility] Bilirubin [Mass/Vol] 0.50 mg/dL 0.20-1.00 [facility] Comment on above: For patients on eltr ombopag therapy, use of Dimension [place] TBIL is not recommended. Chloride [Moles/Vol] 108 mmol/L 98-107 [facility] Eosinophils/100 WBC (Bld) 3.3 % 0-5 [facility] Glucose [Mass/Vol] 97 mg/dL 74-106 [facility] Neutrophils (Bld) [#/Vol] 7.7 10*3/uL 2.0-7.7 [facility] Neutrophils/100 WBC (Bld) 59.7 % 47-70 [facility] Potassium [Moles/Vol] 4.6 mmol/L 3.5-5.1 [facility] Protein [Mass/Vol] 6.9 g/dL 6.4-8.2 [facility] Sodium [Moles/Vol] 138 mmol/L 136-145 [facility] WBC (Bld) [#/Vol] 12.9 10*3/uL 4.4-11.0 [facility] Blood erythrocytes count (nu mber/volume)Ordered By: Radha Elliott on 01-08-2023 RBC (Bld) [#/Vol] 2.96 10*6/uL 4.2-5.4 [facility] Blood hemoglobin measurement (mass/volume)Ordered By: Radha Elliott on 01-08-2023 Hemoglobin (Bld) [Mass/Vol] 8.7 g/dL 12.0-15.0 [facility] Blood lymphocytes/100 leukoc ytesOrdered By: Radha Elliott on 01-08-2023 Lymphocytes/100 WBC (Bld) 30.1 % 19-41 [facility] Blood monocytes/100 leukocyt esOrdered By: Radha Elliott on 01-08-2023 Monocytes/100 WBC (Bld) 5.8 % 0-10 [facility] Blood platelet mean volumeOr dered By: Radha Elliott on 01-08-2023 Platelet mean volume (Bld) [Entitic vol] 9.1 fL 6.2-12.0 [facility] Determination of erythrocyte mean corpuscular volume (MCV)Ordered By: Radha Elliott on 01-08-2023 MCV (RBC) [Entitic vol] 100.3 fL 81-99 [facility] Hematocrit Auto (Bld) [Volum e fraction]Ordered By: Radha Elliott on 01-08-2023 Hematocrit (Bld) [Volume fraction] 29.7 % 37-47 [facility] Laboratory - Chemistry and C hemistry - challengeOrdered By: Radha Elliott on 01-08-2023 ALP [Catalytic activity/Vol] 177 U/L 45-117 [facility] ALT [Catalytic activity/Vol] 27 U/L 13-56 [facility] CO2 [Moles/Vol] 25.0 mmol/L 21.0-32.0 [facility] Globulin (S) [Mass/Vol] 4.1 g/dL 2.2-4.2 [facility] Urea nitrogen/Creatinine [Mass ratio] 32.3 mg/mg 10-20 [facility] Laboratory - Hematology and Cell countsOrdered By: Radha Elliott on 01-08-2023 Anisocytosis Ql (Bld) 1+ [facility] Erythrocyte distribution width (RBC) [Entitic vol] 66.4 fL 35.1-43.9 [facility] Erythrocyte distribution width (RBC) [Ratio] 18.2 % 11.6-14.6 [facility] Immature granulocytes/100 WBC (Bld) 0.700 % 0.0-0.9 [facility] Comment on above: IG% - Immature Granu locytes (promyelocytes, myelocytes and metamyelocytes) > 1% indicates that a LEFT SHIFT is Present. MCH (RBC) [Entitic mass] 29.4 pg 27.0-32.0 [facility] Nucleated RBC/100 WBC (Bld) [Ratio] 0 % 0-5 [facility] MCHC Auto (RBC) [Mass/Vol]Or dered By: Radha Elliott on 01-08-2023 MCHC (RBC) [Mass/Vol] 29.3 g/dL 32-36 [facility] No Panel InformationOrdered By: Radha Elliott on 01-08-2023 Estimated GFR (MDRD) Amer 116 mL/min >60 [facility] Comment on above: GFR Calc Estimated GFR (MDRD) Non-Af Amer 96 mL/min >60 [facility] Comment on above: Non- GFR Calc 29.4 pg 27.0-32.0 [facility] 18.2 % 11.6-14.6 [facility] 66.4 fl 35.1-43.9 [facility] 0.700 % 0.0-0.9 [facility] 0 % 0-5 [facility] 1+ [facility] 96 mL/min >60 [facility] 116 mL/min >60 [facility] 32.3 RATIO 10-20 [facility] 4.1 g/dL 2.2-4.2 [facility] 177 U/L 45-117 [facility] 27 U/L 13-56 [facility] 25.0 mmol/L 21.0-32.0 [facility] Platelets bldOrdered By: Kuldip Elliott on 01-08-2023 Platelets (Bld) [#/Vol] 718 10*3/uL 150-450 [facility] Serum or plasma albumin timbo urement (mass/volume)Ordered By: Radha Elliott on 01-08-2023 Albumin [Mass/Vol] 2.8 g/dL 3.2-5.0 [facility] Serum or plasma albumin/glob ulin mass ratioOrdered By: Radha Elliott on 01-08-2023 Albumin/Globulin [Mass ratio] 0.7 {ratio} 0.9-2.4 [facility] Serum or plasma calcium timbo urement (mass/volume)Ordered By: Radha Elliott on 01-08-2023 Calcium [Mass/Vol] 8.5 mg/dL 8.5-10.1 [facility] Serum or plasma creatinine m easurement (mass/volume)Ordered By: Radha Elliott on 01-08-2023 Creatinine [Mass/Vol] 0.65 mg/dL 0.55-1.02 [facility] Comment on above: The validity of the calculated GFR & GFRAA in patients over 70 years has not been determined. Clinical correlation is essential. Serum or plasma urea nitroge n measurement (mass/volume)Ordered By: Radha Elliott on 01-08-2023 Urea nitrogen [Mass/Vol] 21 mg/dL 7-18 [facility] Thin prep Papanicolaou smear with manual screeningOrdered By: Radha Elliott on 01-08-2023 Thin prep Papanicolaou smear with manual screening 29 U/L 15-37 [facility] Thin prep Papanicolaou smear with manual screening 5 5-15 [facility] Absolute lymphocyte countOrd ered By: Radha Elliott on 01-05-2023 Lymphocytes Auto (Unsp spec) [#/Vol] 3.28 10*3/uL 0.83-4.51 [facility] Basophil percentageOrdered B y: Radha Elliott on 01-05-2023 Basophils (Bld) [#/Vol] 11.5 10*3/uL 4.4-11.0 [facility] Basophils (Bld) [#/Vol] 6.9 10*3/uL 2.0-7.7 [facility] Basophils/100 WBC (Bld) 0.3 % 0-1 [facility] Basophils/100 WBC (Bld) 60.0 % 47-70 [facility] Basophils/100 WBC (Bld) 3.6 % 0-5 [facility] Eosinophils/100 WBC (Bld) 3.6 % 0-5 [facility] Neutrophils (Bld) [#/Vol] 6.9 10*3/uL 2.0-7.7 [facility] Neutrophils/100 WBC (Bld) 60.0 % 47-70 [facility] WBC (Bld) [#/Vol] 11.5 10*3/uL 4.4-11.0 [facility] Blood erythrocytes count (nu mber/volume)Ordered By: Radha Elliott on 01-05-2023 RBC (Bld) [#/Vol] 2.82 10*6/uL 4.2-5.4 [facility] Blood hemoglobin measurement (mass/volume)Ordered By: Radha Elliott on 01-05-2023 Hemoglobin (Bld) [Mass/Vol] 8.4 g/dL 12.0-15.0 [facility] Blood lymphocytes/100 leukoc ytesOrdered By: Radha Elliott on 01-05-2023 Lymphocytes/100 WBC (Bld) 28.4 % 19-41 [facility] Blood monocytes/100 leukocyt esOrdered By: Radha Elliott on 01-05-2023 Monocytes/100 WBC (Bld) 6.8 % 0-10 [facility] Blood platelet mean volumeOr dered By: Radha Elliott on 01-05-2023 Platelet mean volume (Bld) [Entitic vol] 9.2 fL 6.2-12.0 [facility] Determination of erythrocyte mean corpuscular volume (MCV)Ordered By: Radha Elliott on 01-05-2023 MCV (RBC) [Entitic vol] 98.9 fL 81-99 [facility] Hematocrit Auto (Bld) [Volum e fraction]Ordered By: Radha Elliott on 01-05-2023 Hematocrit (Bld) [Volume fraction] 27.9 % 37-47 [facility] Laboratory - Hematology and Cell countsOrdered By: Radha Elliott on 01-05-2023 Erythrocyte distribution width (RBC) [Entitic vol] 60.5 fL 35.1-43.9 [facility] Erythrocyte distribution width (RBC) [Ratio] 17.8 % 11.6-14.6 [facility] Immature granulocytes/100 WBC (Bld) 0.900 % 0.0-0.9 [facility] Comment on above: IG% - Immature Granu locytes (promyelocytes, myelocytes and metamyelocytes) > 1% indicates that a LEFT SHIFT is Present. MCH (RBC) [Entitic mass] 29.8 pg 27.0-32.0 [facility] Nucleated RBC/100 WBC (Bld) [Ratio] 0 % 0-5 [facility] MCHC Auto (RBC) [Mass/Vol]Or dered By: Radha Elliott on 01-05-2023 MCHC (RBC) [Mass/Vol] 30.1 g/dL 32-36 [facility] No Panel InformationOrdered By: Radha Elliott on 01-05-2023 29.8 pg 27.0-32.0 [facility] 17.8 % 11.6-14.6 [facility] 60.5 fl 35.1-43.9 [facility] 0.900 % 0.0-0.9 [facility] 0 % 0-5 [facility] Platelets bldOrdered By: Kuldip Elliott on 01-05-2023 Platelets (Bld) [#/Vol] 554 10*3/uL 150-450 [facility] 36on 01-03-2023 36 Called [facility] ([phone]) and spoke with Vanesa, patient's nurse. Passed along orders per Ty. She was agreeable with this plan of not bringing the patient into the office unless specifically requested. Imaging due: 01/10/23 Normal [facility] 36on 01-02-2023 36 Normal [facility] 36 Normal [facility] Absolute lymphocyte countOrd ered By: Radha Elliott on 01-02-2023 Lymphocytes Auto (Unsp spec) [#/Vol] 3.79 10*3/uL 0.83-4.51 [facility] Basophil percentageOrdered B y: Radha Elliott on 01-02-2023 Basophil percentage 168 mg/dL 74-106 [facility] Basophil percentage 142 mmol/L 136-145 [facility] Basophil percentage 4.5 mmol/L 3.5-5.1 [facility] Basophil percentage 111 mmol/L 98-107 [facility] Basophils (Bld) [#/Vol] 11.1 10*3/uL 4.4-11.0 [facility] Basophils (Bld) [#/Vol] 5.7 10*3/uL 2.0-7.7 [facility] Basophils/100 WBC (Bld) 0.3 % 0-1 [facility] Basophils/100 WBC (Bld) 51.5 % 47-70 [facility] Basophils/100 WBC (Bld) 4.2 % 0-5 [facility] Chloride [Moles/Vol] 111 mmol/L 98-107 [facility] Eosinophils/100 WBC (Bld) 4.2 % 0-5 [facility] Glucose [Mass/Vol] 168 mg/dL 74-106 [facility] Comment on above: Fasting Glucose resu lt greater than or equal to 126 mg/dL suggests DIABETES MELLITUS per A.D.A. criteria. Neutrophils (Bld) [#/Vol] 5.7 10*3/uL 2.0-7.7 [facility] Neutrophils/100 WBC (Bld) 51.5 % 47-70 [facility] Potassium [Moles/Vol] 4.5 mmol/L 3.5-5.1 [facility] Sodium [Moles/Vol] 142 mmol/L 136-145 [facility] WBC (Bld) [#/Vol] 11.1 10*3/uL 4.4-11.0 [facility] Blood erythrocytes count (nu mber/volume)Ordered By: Radha Elliott on 01-02-2023 RBC (Bld) [#/Vol] 2.71 10*6/uL 4.2-5.4 [facility] Blood hemoglobin measurement (mass/volume)Ordered By: Radha Elliott on 01-02-2023 Hemoglobin (Bld) [Mass/Vol] 7.9 g/dL 12.0-15.0 [facility] Blood lymphocytes/100 leukoc ytesOrdered By: Radha Elliott on 01-02-2023 Lymphocytes/100 WBC (Bld) 34.0 % 19-41 [facility] Blood monocytes/100 leukocyt esOrdered By: Radha Elliott on 01-02-2023 Monocytes/100 WBC (Bld) 8.3 % 0-10 [facility] Blood platelet mean volumeOr dered By: Radha Elliott on 01-02-2023 Platelet mean volume (Bld) [Entitic vol] 9.6 fL 6.2-12.0 [facility] CARECOORDon 01-02-2023 [facility]ORD Patient Choice Patient Name: DONNA MARSH Date of : [address] [facility] Determination of erythrocyte mean corpuscular volume (MCV)Ordered By: Radha Elliott on 01-02-2023 MCV (RBC) [Entitic vol] 97.4 fL 81-99 [facility] Hematocrit Auto (Bld) [Volum e fraction]Ordered By: Radha Elliott on 01-02-2023 Hematocrit (Bld) [Volume fraction] 26.4 % 37-47 [facility] Laboratory - Chemistry and C hemistry - challengeOrdered By: Radha Elliott on 01-02-2023 CO2 [Moles/Vol] 27.0 mmol/L 21.0-32.0 [facility] Cobalamin (Vitamin B12) [Mass/Vol] 484 pg/mL 211-911 [facility] Magnesium [Mass/Vol] 1.8 mg/dL 1.6-2.6 [facility] Urea nitrogen/Creatinine [Mass ratio] 41.7 mg/mg 10-20 [facility] Laboratory - Hematology and Cell countsOrdered By: Radha Elliott on 01-02-2023 Erythrocyte distribution width (RBC) [Entitic vol] 55.4 fL 35.1-43.9 [facility] Erythrocyte distribution width (RBC) [Ratio] 16.7 % 11.6-14.6 [facility] Immature granulocytes/100 WBC (Bld) 1.700 % 0.0-0.9 [facility] Comment on above: IG% - Immature Granu locytes (promyelocytes, myelocytes and metamyelocytes) > 1% indicates that a LEFT SHIFT is Present. MCH (RBC) [Entitic mass] 29.2 pg 27.0-32.0 [facility] Nucleated RBC/100 WBC (Bld) [Ratio] 0 % 0-5 [facility] MCHC Auto (RBC) [Mass/Vol]Or dered By: Radha Elliott on 01-02-2023 MCHC (RBC) [Mass/Vol] 29.9 g/dL 32-36 [facility] No Panel InformationOrdered By: Radha Elliott on 01-02-2023 Estimated GFR (MDRD) Amer 112 mL/min >60 [facility] Comment on above: GFR Calc Estimated GFR (MDRD) Non-Af Amer 93 mL/min >60 [facility] Comment on above: Non- GFR Calc Vitamin D 25-Hydroxy 98.7 ng/mL [facility] Comment on above: Vitamin D 25(OH) Sta tus Range Deficiency <20 ng/mL (50nmol/L) Insufficiency 20 - 30 ng/mL (50 - 75 nmol/L) Sufficiency 30 - 100 ng/mL (75 - 250 nmol/L) Toxicity >100 ng/mL (>250 nmol/L) 29.2 pg 27.0-32.0 [facility] 16.7 % 11.6-14.6 [facility] 55.4 fl 35.1-43.9 [facility] 1.700 % 0.0-0.9 [facility] 0 % 0-5 [facility] 93 mL/min >60 [facility] 112 mL/min >60 [facility] 41.7 RATIO 10-20 [facility] 1.8 mg/dL 1.6-2.6 [facility] 27.0 mmol/L 21.0-32.0 [facility] 484 pg/mL 211-911 [facility] 98.7 ng/mL [facility] Platelets bldOrdered By: Kuldip Elliott on 01-02-2023 Platelets (Bld) [#/Vol] 464 10*3/uL 150-450 [facility] Serum or plasma calcium timbo urement (mass/volume)Ordered By: Radha Elliott on 01-02-2023 Calcium [Mass/Vol] 8.3 mg/dL 8.5-10.1 [facility] Serum or plasma creatinine m easurement (mass/volume)Ordered By: Radha Elliott on 01-02-2023 Creatinine [Mass/Vol] 0.67 mg/dL 0.55-1.02 [facility] Comment on above: The validity of the calculated GFR & GFRAA in patients over 70 years has not been determined. Clinical correlation is essential. Serum or plasma urea nitroge n measurement (mass/volume)Ordered By: Radha Elliott on 01-02-2023 Urea nitrogen [Mass/Vol] 28 mg/dL 7-18 [facility] Thin prep Papanicolaou smear with manual screeningOrdered By: Radha Elliott on 01-02-2023 Thin prep Papanicolaou smear with manual screening 4 5-15 [facility] Whole blood hemoglobin A1c/t otal hemoglobin ratio (mass fraction)Ordered By: Radha Elliott on 01-02-2023 HbA1c (Bld) [Mass fraction] 5.0 % 3.8-5.6 [facility] Comment on above: Normal < 5.7 % Predi abetic 5.7 - 6.4 % Diabetic >or= 6.5 % Please note range changes. BASIC METABOLIC PANELon 11-2 Anion gap [Moles/Vol] 6 mmol/L Normal 3-13 [facility] Comment on above: Performed By: #### L [id number] ####Client Service Supervisor: VEENA RODRIGUEZ ([phone])[facility] ([facility])[address] [place] [address] Performed By: #### L [id number] ####Client Service Supervisor: VEENA RODRIGUEZ ([phone])[facility] ([facility])[address] [place] [address] Calcium [Mass/Vol] 8.4 mg/dL Normal 8.4-10.4 [facility] Comment on above: Performed By: #### L [id number] ####Client Service Supervisor: VEENA RODRIGUEZ ([phone])[facility] ([facility])[address] [place] [address] Performed By: #### L [id number] ####Client Service Supervisor: VEENA RODRIGUEZ ([phone])[facility] ([facility])[address] [place] [address] Chloride [Moles/Vol] 106 mmol/L Normal 98-107 [facility] Comment on above: Performed By: #### L [id number] ####Client Service Supervisor: VEENA RODRIGUEZ ([phone])[facility] ([facility])[address] [place] [address] Performed By: #### L [id number] ####Client Service Supervisor: VEENA RODRIGUEZ ([phone])[facility] ([facility])[address] [place] [address] CO2 [Moles/Vol] 25 mmol/L Normal 22-30 [facility] Comment on above: Performed By: #### L [id number] ####Client Service Supervisor: VEENA RODRIGUEZ ([phone])[facility] ([facility])[address] [place] [address] Performed By: #### L [id number] ####Client Service Supervisor: VEENA RODRIGUEZ ([phone])[facility] ([facility])[address] [place] [address] Creatinine [Mass/Vol] 0.64 mg/dL Normal 0.52-1.04 [facility] Comment on above: Performed By: #### L [id number] ####Client Service Supervisor: VEENA RODRIGUEZ ([phone])[facility] [place] [address] Performed By: #### L [id number] ####Client Service Supervisor: VEENA RODRIGUEZ ([phone])[facility] [place] [address] GLOMERULAR FILTRATION RATE ML/MIN/1.73 SQ M.PREDICTED >90.0 Normal >60.0 [facility] Comment on above: Result Comment: Calc ulation based on the Chronic Kidney Disease Epidemiology Collaboration (CKD-EPI) equation refit without adjustment for race Performed By: #### L [id number] ####Client Service Supervisor: VEENA RODRIGUEZ ([phone])[facility] [place] [address] Result Comment: Calc ulation based on the Chronic Kidney Disease Epidemiology Collaboration (CKD-EPI) equation refit without adjustment for race Performed By: #### L [id number] ####Client Service Supervisor: VEENA RODRIGUEZ ([phone])[facility] [place] [address] [place] Glucose [Mass/Vol] 157 mg/dL High 70-100 [facility] Comment on above: Performed By: #### L [id number] ####Client Service Supervisor: VEENA RODRIGUEZ ([phone])[facility] [place] [address] Performed By: #### L [id number] ####Client Service Supervisor: VEENA RODRIGUEZ ([phone])[facility] ([facility])[address] [place] [address] Potassium [Moles/Vol] 3.6 mmol/L Normal 3.5-5.1 [facility] Comment on above: Performed By: #### L [id number] ####Client Service Supervisor: VEENA RODRIGUEZ ([phone])[facility] ([facility])[address] [place] [address] Performed By: #### L [id number] ####Client Service Supervisor: VEENA RODRIGUEZ ([phone])[facility] [place] [address] Sodium [Moles/Vol] 136 mmol/L Normal 135-145 [facility] Comment on above: Performed By: #### L [id number] ####Client Service Supervisor: VEENA RODRIGUEZ ([phone])[facility] [place] [address] Performed By: #### L [id number] ####Client Service Supervisor: VEENA RODRIGUEZ ([phone])[facility] [place] [address] Urea nitrogen [Mass/Vol] 22 mg/dL High 7-17 [facility] Comment on above: Performed By: #### L [id number] ####Client Service Supervisor: VEENA RODRIGUEZ ([phone])[facility] [place] [address] Performed By: #### L [id number] ####Client Service Supervisor: VEENA RODRIGUEZ ([phone])[facility] [place] [address] Basic metabolic 1998 panelon 01-01-2023 Anion gap [Moles/Vol] 6 mmol/L 3 - 13 mmol/L [facility] [facility] Calcium [Mass/Vol] 8.4 mg/dL 8.4 - 10. 4 mg/dL [facility] Chloride [Moles/Vol] 106 mmol/L 98 - 10 7 mmol/L [facility] CO2 [Moles/Vol] 25 mmol/L 22 - 30 mmol/L [facility] Creatinine [Mass/Vol] 0.64 mg/dL 0.52 - 1.04 mg/dL [facility] GFR/1.73 sq M.predicted MDRD (S/P/Bld) [Vol rate/Area] - PINF [facility] Glucose [Mass/Vol] 157 mg/dL High 70 - 100 mg/dL [facility] Interpretation and review of laboratory results Abnormal [facility] Potassium [Moles/Vol] 3.6 mmol/L 3.5 - 5.1 mmol/L [facility] Sodium [Moles/Vol] 136 mmol/L 135 - 145 mmol/L [facility] Urea nitrogen [Mass/Vol] 22 mg/dL High 7 - 17 mg/dL [facility] CARECOSTITES Normal [facility] Patient Choice Patient Name: DONNA MARSH Date of : 1955 All Providers Sent Referral Name: [facility] [place] Phone: [phone] Address: [address] [place] [address] Name: [facility] Address: [address] [place] [address] Name: [facility] [facility] Phone: [phone] Address: [address] [place] [address] Normal [facility] Auth received for admission to [facility]. Transport set for 700pm. Call made to frandy Ge , no answer left message notifying of pending dc and pick pulling machine tender time. Normal [facility] Accepted patient for admission. Awaiting insurance approval. 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 7000 completed in HENs. [facility] Notified that [facility] is out of network. Call made to frandy Ge, left message requesting return call, will discuss alternate options with patient and family. Normal [facility] CBC (HEMOGRAM)on 01-01-2023 Erythrocyte distribution width (RBC) [Ratio] 15.5 % High 11.5-14.5 [facility] Comment on above: Performed By: #### L [id number] ####Client Service Supervisor: VEENA RODRIGUEZ ([phone])[facility])[address] [place] [address] Performed By: #### L [id number] ####Client Service Supervisor: VEENA RODRIGUEZ ([phone])[facility] ([facility])[address] [place] [address] ERYTHROCYTE MEAN CORPUSCULAR HEMOGLOBIN CONCENTRATION (G/DL) BY AUTOMATED 32.7 % Normal 32.0-36.0 [facility] Comment on above: Performed By: #### L [id number] ####Client Service Supervisor: VEENA RODRIGUEZ ([phone])[facility] ([facility])[address] [place] [address] Performed By: #### L [id number] ####Client Service Supervisor: VEENA RODRIGUEZ ([phone])[facility] ([facility])[address] [place] [address] Hematocrit (Bld) [Volume fraction] 25.0 % Low 35.0-47.0 [facility] Comment on above: Performed By: #### L [id number] ####Client Service Supervisor: VEENA RODRIGUEZ ([phone])[facility] ([facility])[address] [place] [address] Performed By: #### L [id number] ####Client Service Supervisor: EVENA RODRIGUEZ ([phone])[facility] ([facility])[address] [place] [address] Hemoglobin (Bld) [Mass/Vol] 8.2 g/dL Low 11.7-16.0 [facility] Comment on above: Performed By: #### L [id number] ####Client Service Supervisor: VEENA RODRIGUEZ ([phone])[facility])[address] [place] [address] Performed By: #### L [id number] ####Client Service Supervisor: VEENA RODRIGUEZ ([phone])[facility] ([facility])[address] [place] [address] MCH (RBC) [Entitic mass] 29.2 pg Normal 26.0-34.0 [facility] Comment on above: Performed By: #### L [id number] ####Client Service Supervisor: VEENA RODRIGUEZ ([phone])[facility] ([facility])[address] [place] [address] Performed By: #### L [id number] ####Client Service Supervisor: VEENA RODRIGUEZ ([phone])[facility] ([facility])[address] [place] [address] MCV (RBC) [Entitic vol] 89.4 fL Normal 80.0-98.0 [facility] Comment on above: Performed By: #### L [id number] ####Client Service Supervisor: VEENA RODRIGUEZ ([phone])[facility] ([facility])[address] [place] [address] Performed By: #### L [id number] ####Client Service Supervisor: VEENA RODRIGUEZ ([phone])[facility] ([facility])[address] [place] [address] Platelet mean volume (Bld) [Entitic vol] 7.8 fL Normal 7.4-12.4 [facility] Comment on above: Performed By: #### L [id number] ####Client Service Supervisor: VEENA RODRIGUEZ ([phone])[facility] ([facility])[address] [place] [address] Performed By: #### L [id number] ####Client Service Supervisor: VEENA RODRIGUEZ ([phone])[facility] ([facility])[address] [place] [address] Platelets (Bld) [#/Vol] 382 10*3/uL Normal 140-440 [facility] Comment on above: Performed By: #### L [id number] ####Client Service Supervisor: VEENA RODRIGUEZ ([phone])[facility] ([facility])[address] [place] [address] Performed By: #### L [id number] ####Client Service Supervisor: VEENA RODRIGUEZ ([phone])[facility] ([facility])[address] [place] [address] RBC (Bld) [#/Vol] 2.79 10*6/uL Low 3.8-5.20 [facility] Comment on above: Performed By: #### L [id number] ####Client Service Supervisor: VEENA RODRIGUEZ ([phone])[facility] ([facility])[address] [place] [address] Performed By: #### L [id number] ####Client Service Supervisor: VEENA RODRIGUEZ ([phone])[facility] [place] [address] WBC (Bld) [#/Vol] 11.3 10*3/uL High 3.6-10.7 [facility] Comment on above: Performed By: #### L [id number] ####Client Service Supervisor: VEENA RODRIGUEZ ([phone])[facility] [place] [address] Performed By: #### L [id number] ####Client Service Supervisor: VEENA RODRIGUEZ ([phone])[facility] [place] [address] CBC panel Auto (Bld)Ordered By: Anuja Salas on 01-01-2023 Erythrocyte distribution width (RBC) [Ratio] 15.5 % High 11.5 - 14.5 % [facility] Hematocrit (Bld) [Volume fraction] 25.0 % Low 35.0 - 47.0 % [facility] Hemoglobin (Bld) [Mass/Vol] 8.2 g/dL Low 11.7 - 16.0 g/dL [facility] Interpretation and review of laboratory results Abnormal [facility] MCH (RBC) [Entitic mass] 29.2 pg 26.0 - 34.0 pg [facility] MCHC (RBC) [Mass/Vol] 32.7 % 32.0 - 36.0 % [facility] MCV (RBC) [Entitic vol] 89.4 fL 80.0 - 98.0 fL [facility] [employer] Platelet mean volume (Bld) [Entitic vol] 7.8 fL 7.4 - 12.4 fL [facility] Platelets (Bld) [#/Vol] 382 10*3/uL 140 - 440 10*3/uL [facility] RBC (Bld) [#/Vol] 2.79 10*6/uL Low 3.8 - 5.20 10*6/uL [facility] WBC (Bld) [#/Vol] 11.3 10*3/uL High 3.6 - 10.7 10*3/uL [facility] IDNon 01-01-2023 IDN Problem: Knowledge Deficit Goal: Patient/family/caregiver demonstrates understanding of disease process, treatment plan, medications, and discharge instructions Outcome: Completed Problem: Potential for Compromised Skin Integrity Goal: Skin Integrity is Maintained or Improved 01/01/2023 1632 by Denise Durham RN Outcome: Completed 01/01/2023 1006 by Denise Durham RN Outcome: Progressing Flowsheets (Taken 01/01/2023 1006) Skin integrity is maintained or improved: Assess and monitor skin integrity Avoid shearing Keep skin clean and dry Goal: Nutritional status is improving Outcome: Completed Problem: Urinary Incontinence Goal: Perineal skin integrity is maintained or improved Outcome: Completed Problem: Safety - Non-violent/Interference with Medical Treatment Restraint Goal: Remains free of injury from restraints (Restraint for Interference with University Counselor) Outcome: Completed Goal: Free from restraint(s) (Restraint for Interference with University Counselor) Outcome: Completed Problem: Problem Interventions Goal: Dietary Supplements Outcome: Completed Goal: Promote nutritional intake Outcome: Completed Goal: Assess Nutritional Intake Outcome: Completed Normal [facility] IDN Normal [facility] IDN Problem: Potential f or Compromised Skin Integrity Goal: Skin Integrity is Maintained or Improved Outcome: Progressing Flowsheets (Taken 01/01/2023 1006) Skin integrity is maintained or improved: Assess and monitor skin integrity Avoid shearing Keep skin clean and dry Normal [facility] IDN Normal [facility] Nursing Noteon 01-01-2023 Nursing Note Patient picked up transported to [facility]. IV L forearm and R forearm removed. Normal [facility] POCT glucose meteron 023 Glucose [Mass/Vol] 221 mg/dL High 70 - 100 mg/dL [facility] Interpretation and review of laboratory results Abnormal [facility] Glucose [Mass/Vol] 213 mg/dL High 70 - 100 mg/dL [facility] Interpretation and review of laboratory results Abnormal [facility] Glucose [Mass/Vol] 182 mg/dL High 70 - 100 mg/dL [facility] Interpretation and review of laboratory results Abnormal [facility] Glucose [Mass/Vol] 149 mg/dL High 70 - 100 mg/dL [facility] Interpretation and review of laboratory results Abnormal [facility] Progress Noteon 01-01-2023 Progress Note PHYSICAL THERAPY [facility] Treatment Note Name/MRN: Donna Marsh ([id number]) Date of : 1955 Age: 67 y.o. Room/Bed: [facility]14/[facility] A Discharge Recommendation: Inpatient Rehab, SNF, and Continue to assess pending progress Equipment Needed: TBD at next level of care Prior Level of Function ADL Assistance: self-care primarily on own, household needs assist Ambulation Assistance: Device(s) used: front wheeled walker and electric scooter Transfer Assistance: Independent Assessment Pt requires max assist x 2 for bed mobility and transfers, mod assist x 2 for chair to bed with FWW. No PT goals met this session. Recommend IP rehab vs SNF at discharge. Subjective Pt sitting up in the bed, agrees to PT. Pain: RN managing pain. Medical Precautions: No active isolations Proper PPE donned/doffed in accordance with facility standards. Fall Risk: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 ([facility])[address] [place] [address] Platelet mean volume (Bld) [Entitic vol] 7.7 fL Normal 7.4-12.4 [facility] Comment on above: Performed By: #### L [id number] ####Client Service Supervisor: VEENA RODRIGUEZ ([phone])[facility])[address] [place] [address] Performed By: #### L [id number] ####Client Service Supervisor: VEENA RODRIGUEZ ([phone])[facility] ([facility])[address] [place] [address] Platelets (Bld) [#/Vol] 317 10*3/uL Normal 140-440 [facility] Comment on above: Performed By: #### L [id number] ####Client Service Supervisor: VEENA RODRIGUEZ ([phone])[facility] ([facility])[address] [place] [address] Performed By: #### L [id number] ####Client Service Supervisor: VEENA RODRIGUEZ ([phone])[facility] ([facility])[address] [place] [address] RBC (Bld) [#/Vol] 2.74 10*6/uL Low 3.8-5.20 [facility] Comment on above: Performed By: #### L [id number] ####Client Service Supervisor: VEENA RODRIGUEZ ([phone])[facility] ([facility])[address] [place] [address] Performed By: #### L [id number] ####Client Service Supervisor: VEENA RODRIGUEZ ([phone])[facility] ([facility])[address] [place] [address] WBC (Bld) [#/Vol] 9.5 10*3/uL Normal 3.6-10.7 [facility] Comment on above: Performed By: #### L [id number] ####Client Service Supervisor: VEENA RODRIGUEZ ([phone])[facility] ([facility])[address] [place] [address] Performed By: #### L [id number] ####Client Service Supervisor: VEENA RODRIGUEZ ([phone])[facility] ([facility])[address] [place] [address] CBC panel Auto (Bld)on 12-31 Erythrocyte distribution width (RBC) [Ratio] 15.7 % High 11.5 - 14.5 % [facility] Hematocrit (Bld) [Volume fraction] 24.3 % Low 35.0 - 47.0 % [facility] Hemoglobin (Bld) [Mass/Vol] 8.0 g/dL Low 11.7 - 16.0 g/dL [facility] Interpretation and review of laboratory results Abnormal [facility] MCH (RBC) [Entitic mass] 29.4 pg 26.0 - 34.0 pg [facility] MCHC (RBC) [Mass/Vol] 33.1 % 32.0 - 36.0 % [facility] MCV (RBC) [Entitic vol] 88.9 fL 80.0 - 98.0 fL [facility] Platelet mean volume (Bld) [Entitic vol] 7.7 fL 7.4 - 12.4 fL [facility] Platelets (Bld) [#/Vol] 317 10*3/uL 140 - 440 10*3/uL [facility] RBC (Bld) [#/Vol] 2.74 10*6/uL Low 3.8 - 5.20 10*6/uL [facility] WBC (Bld) [#/Vol] 9.5 10*3/uL 3.6 - 10.7 10*3/uL [facility] IDNon 12-31-2022 IDN Problem: Knowledge Deficit Goal: Patient/family/caregiver demonstrates understanding of disease process, treatment plan, medications, and discharge instructions Outcome: Progressing Problem: Potential for Compromised Skin Integrity Goal: Skin Integrity is Maintained or Improved Outcome: Progressing Goal: Nutritional status is improving Outcome: Progressing Problem: Urinary Incontinence Goal: Perineal skin integrity is maintained or improved Outcome: Progressing Problem: Safety - Non-violent/Interference with Medical Treatment Restraint Goal: Remains free of injury from restraints (Restraint for Interference with University Counselor) Outcome: Progressing Goal: Free from restraint(s) (Restraint for Interference with University Counselor) Outcome: Progressing Normal [facility] IDN Normal [facility] POCT glucose meteron 023 Glucose [Mass/Vol] 168 mg/dL High 70 - 100 mg/dL [facility] Interpretation and review of laboratory results Abnormal [facility] Glucose [Mass/Vol] 110 mg/dL High 70 - 100 mg/dL [facility] Interpretation and review of laboratory results Abnormal [facility] Glucose [Mass/Vol] 161 mg/dL High 70 - 100 mg/dL [facility] Interpretation and review of laboratory results Abnormal [facility] Glucose [Mass/Vol] 120 mg/dL High 70 - 100 mg/dL [facility] Interpretation and review of laboratory results Abnormal [facility] Progress Noteon 12-31-2022 Progress Note PHYSICAL THERAPY [facility] Treatment Note Name/MRN: Donna Marsh ([id number]) Date of : 1955 Age: 67 y.o. Room/Bed: -6114/-6114 A Discharge Recommendation: Inpatient Rehab, SNF, and Continue to assess pending progress Equipment Needed: TBD at next level of care Prior Level of Function ADL Assistance: self-care primarily on own, household needs assist Ambulation Assistance: Device(s) used: front wheeled walker and electric scooter Transfer Assistance: Independent Assessment Pt presents with the listed deficits and decreased functional mobility. Bed Mobility demo'd MaxA/Renetta for Rolling R<>L for bedding change and pericare. Pt DEP for pericare. Exercise performed to improve ROM and strength for future functional mobility. Demo'd LLE AROM, RLE A/AA/PROM. Pt limited by pain, global weakness, decreased activity tolerance and fatigue. Increased time required to complete tasks. PT goals not met. Pt would benefit from continued skilled PT. Recommend IP Rehab vs SNF pending progress at discharge. Subjective Pt supine, requiring assist for bedding change after BM. Agreeable to PT. Reports pain with mobility. Does not rate. RN cleared for therapy. Pain: RN managing pain. Medical Precautions: No active isolations Proper PPE donned/doffed in accordance with facility standards. Fall Risk: [place]ong Fall Risk Score: 85 (High Risk) Precautions/Restrictions: Right LE Weight Bearing: Weight Bearing As Tolerated Left LE Weight Bearing: Weight Bearing As Tolerated John Overall Cognitive Status: WFL Overall Orientation Status: Oriented to Place, Oriented to Situation, and Oriented to Person Family/Caregiver Present: none Objective Exercises Exercises Straight Leg Raise: RLE PROM, LLE AROM 2 x 5 reps Heelslides: LLE AROM, RLE AAROM/PROM - Pain limiting ROM. ~ 10 degrees hip and knee flexion allowed Gluteal Sets: AROM x 5 reps with 3 sec hold Hip Abduction: LLE AROM, RLE AAROM 2 x 5 reps Hip Adduction: LLE AROM x 10 reps Knee Short Arc Quad: RLE PROM x 5 reps Ankle Pumps: BLE AROM 2 x 10 reps Comments: Pt encouraged to perform ther ex as able during day. Reviewed handout previously provided. Bed Mobility Rolling to right: Min Assist, Max Assist Rolling to left: Min Assist, Max Assist Pt required MaxA to Roll R<>L. Tactile and verbal cues for hand and foot placement. Once side lying, pt required Renetta to remain side-lying. x 2 R, x 2 L. Plan Continue acute PT per plan of care. Safety/Education Safety Safety Devices in place: All fall risk precautions in place, call light within reach, left in bed, patient at risk for falls, nurse notified, and no alarms engaged upon entry Restraints: No Education Education Given To: patient Education Provided: PT Role, PT Goals, Plan of Care, Home Exercise Program, Precautions, Transfer Training, Energy Conservation, Fall Prevention Education, Discharge Recommendations, and Benefits of Increasing Activity Education Method: Verbal, Demonstration, and Teach Back Barriers to Learning: None Education Outcome: Verbalized Understanding, Demonstrated Understanding, and Continued Education Needed Outcome Measures AM-PAC AM-PAC Inpatient Mobility Raw Score (No Stairs) : 9 -[facility] Goals Patient Stated Goal: Encounter Problems Encounter Problems (Active) Balance Patient will maintain static standing balance for 1 minutes with min assist in order to demonstrate decreased risk of falling. (Progressing) Start: 12/28/22 Expected End: 01/11/23 Mobility Patient will ambulate 15 feet with mod assist and device in order to improve safety and independence with mobility. (Not Addressed) Start: 12/28/22 Expected End: 01/11/23 WBAT RLE PT Misc Misc 2 (Progressing) Start: 12/28/22 Expected End: 01/11/23 R active heel slide to approx 30 R active LAQ to -40 Transfers Patient will perform bed mobility with min assist in order to improve independence and prepare for out of bed mobility. (Progressing) Start: 12/28/22 Expected End: 01/11/23 Patient will complete sit to stand transfer with min assist to device in order to improve safety and prepare for out of bed mobility. (Not Addressed) Start: 12/28/22 Expected End: 01/11/23 Therapy Time Individual Co-treatment Time In 1143 Time Out 1209 Minutes 26 Timed Code Treatment Minutes: 26 Minutes (FA, TP) BLUEPRINT ENGINEER wore PPE in compliance with hospital guidelines and regulation when treating this patient. Marielena Salmeron, BLUEPRINT ENGINEER Normal [facility] Progress Note Normal [facility] Progress Note Normal [facility] BASIC METABOLIC PANELon 11- Anion gap [Moles/Vol] 5 mmol/L Normal 3-13 [facility] Comment on above: Performed By: #### L AB15 ####Client Service Supervisor: VEENA RODRIGUEZ ([phone])[facility] ([facility])[address] [place] [address] Performed By: #### L AB15 ####Client Service Supervisor: VEENA RODRIGUEZ ([phone])[facility] [place] [address] Calcium [Mass/Vol] 8.2 mg/dL Low 8.4-10.4 [facility] Comment on above: Performed By: #### L AB15 ####Client Service Supervisor: VEENA RODRIGUEZ ([phone])[facility] [place] [address] Performed By: #### L AB15 ####Client Service Supervisor: VEENA RODRIGUEZ ([phone])[facility] [place] [address] Chloride [Moles/Vol] 105 mmol/L Normal 98-107 [facility] Comment on above: Performed By: #### L AB15 ####Client Service Supervisor: VEENA RODRIGUEZ ([phone])[facility] [place] [address] Performed By: #### L AB15 ####Client Service Supervisor: VEENA RODRIGUEZ ([phone])[facility] [place] [address] CO2 [Moles/Vol] 28 mmol/L Normal 22-30 [facility] Comment on above: Performed By: #### L AB15 ####Client Service Supervisor: VEENA RODRIGUEZ ([phone])[facility] ([facility] [place] [address] Performed By: #### L [id number] ####Client Service Supervisor: VEENA RODRIGUEZ ([phone])[facility] ([facility])[address] [place] [address] Creatinine [Mass/Vol] 0.67 mg/dL Normal 0.52-1.04 [facility] Comment on above: Performed By: #### L AB15 ####Client Service Supervisor: VEENA RODRIGUEZ ([phone])[facility] ([facility])[address] [place] [address] Performed By: #### L [id number] ####Client Service Supervisor: VEENA RODRIGUEZ ([phone])[facility] ([facility])[address] [place] [address] GLOMERULAR FILTRATION RATE ML/MIN/1.73 SQ M.PREDICTED >90.0 Normal >60.0 [facility] Comment on above: Result Comment: Calc ulation based on the Chronic Kidney Disease Epidemiology Collaboration (CKD-EPI) equation refit without adjustment for race Performed By: #### L AB15 ####Client Service Supervisor: VEENA RODRIGUEZ ([phone])[facility])[address] [place] [address] Result Comment: Calc ulation based on the Chronic Kidney Disease Epidemiology Collaboration (CKD-EPI) equation refit without adjustment for race Performed By: #### L AB15 ####Client Service Supervisor: VEENA RODRIGUEZ ([phone])[facility] ([facility])[address] [place] [address] Glucose [Mass/Vol] 115 mg/dL High 70-100 [facility] Comment on above: Performed By: #### L AB15 ####Client Service Supervisor: VEENA RODRIGUEZ ([phone])[facility])[address] [place] [address] Performed By: #### L AB15 ####Client Service Supervisor: VEENA RODRIGUEZ ([phone])[facility] ([facility])[address] [place] [address] Potassium [Moles/Vol] 3.9 mmol/L Normal 3.5-5.1 [facility] Comment on above: Performed By: #### L AB15 ####Client Service Supervisor: VEENA RODRIGUEZ ([phone])[facility] ([facility])[address] [place] [address] Performed By: #### L AB15 ####Client Service Supervisor: VEENA RODRIGUEZ ([phone])[facility] ([facility])[address] [place] [address] Sodium [Moles/Vol] 138 mmol/L Normal 135-145 [facility] Comment on above: Performed By: #### L AB15 ####Client Service Supervisor: VEENA RODRIGUEZ ([phone])[facility] ([facility])[address] [place] [address] Performed By: #### L AB15 ####Client Service Supervisor: VEENA RODRIGUEZ ([phone])[facility] ([facility])[address] [place] [address] Urea nitrogen [Mass/Vol] 24 mg/dL High 7-17 [facility] Comment on above: Performed By: #### L AB15 ####Client Service Supervisor: VEENA RODRIGUEZ ([phone])[facility] ([facility])[address] [place] [address] Performed By: #### L AB15 ####Client Service Supervisor: VEENA RODRIGUEZ ([phone])[facility] ([facility])[address] [place] [address] Basic metabolic 1998 panelon 12-30-2022 Anion gap [Moles/Vol] 5 mmol/L 3 - 13 mmol/L [facility] Calcium [Mass/Vol] 8.2 mg/dL Low 8.4 - 10. 4 mg/dL [facility] Chloride [Moles/Vol] 105 mmol/L 98 - 10 7 mmol/L [facility] CO2 [Moles/Vol] 28 mmol/L 22 - 30 mmol/L [facility] Creatinine [Mass/Vol] 0.67 mg/dL 0.52 - 1.04 mg/dL [facility] GFR/1.73 sq M.predicted MDRD (S/P/Bld) [Vol rate/Area] - PINF [facility] Glucose [Mass/Vol] 115 mg/dL High 70 - 100 mg/dL [facility] Interpretation and review of laboratory results Abnormal [facility] Potassium [Moles/Vol] 3.9 mmol/L 3.5 - 5.1 mmol/L [facility] Sodium [Moles/Vol] 138 mmol/L 135 - 145 mmol/L [facility] Urea nitrogen [Mass/Vol] 24 mg/dL High 7 - 17 mg/dL [facility] CARECOORDon 12-30-2022 [facility] CARE COORDINATION PASCUAL BLUNT NOTE/UPDATE Medical Plan: admitted s/p fall off scooter. S/P Intertan nailing of right hip on 12/27. PT/OT rec SNF. Discharge Plan: [facility] Discharge Barriers: pending AUTH, medical clearance, and completion of discharge orders. Received message from Rudy VILLASENOR that [facility] called her expecting this patient at noon. I Called Kaya at facility [phone] left message form admissions on secure voicemail, called [phone] and spoke with RN- they were misinformed, patients AUTH has not come back yet and is still pending. Rudy VILLASENOR updated. Expected discharge, Discharge Milestones, and Rapid Rounding reviewed and updated. [facility] will continue to follow. Discharge Milestones and Delays Expected Date/Time: 12/31/[address] discharge order Complete med reconciliation Case mgmt discharge readiness Clinical Stability Diagnsotic Workup Expected Discharge History Expected Date/Time Set By Reviewed At 12/31/2022 Terrie Scott RN 12/30/2022 1:55 PM pending AUTH, medical clearance, and completion of discharge orders. 12/29/2022 Asim Santos RN 12/29/2022 5:15 AM 12/29/2022 Asim Santos RN 12/28/2022 11:10 AM 12/29/2022 Asim Santos RN 12/27/2022 5:30 AM 12/28/2022 Carly De La Rosa RN 12/25/2022 8:29 AM 12/25/2022 Esteban Hawley MD 12/23/2022 10:36 PM 12/25/2022 Esteban Hawley MD 12/23/2022 9:06 PM Length of Stay (Days): 7 GMLOS: 6.3 Normal [facility] CARECOORD Normal [facility] CBC (HEMOGRAM)on 12-30-2022 Erythrocyte distribution width (RBC) [Ratio] 14.8 % High 11.5-14.5 [facility] Comment on above: Performed By: #### L [id number] ####Client Service Supervisor: VEENA RODRIGUEZ ([phone])[facility] ([facility])[address] [place] [address] Performed By: #### L [id number] ####Client Service Supervisor: VEENA RODRIGUEZ ([phone])[facility])[address] [place] [address] ERYTHROCYTE MEAN CORPUSCULAR HEMOGLOBIN CONCENTRATION (G/DL) BY AUTOMATED 33.2 % Normal 32.0-36.0 [facility] Comment on above: Performed By: #### L [id number] ####Client Service Supervisor: VEENA RODRIGUEZ ([phone])[facility])[address] [place] [address] Performed By: #### L [id number] ####Client Service Supervisor: VEENA RODRIGUEZ ([phone])[facility])[address] [place] [address] Hematocrit (Bld) [Volume fraction] 22.6 % Low 35.0-47.0 [facility] Comment on above: Performed By: #### L [id number] ####Client Service Supervisor: VEENA RODRIGUEZ ([phone])[facility])[address] [place] [address] Performed By: #### L [id number] ####Client Service Supervisor: VEENA RODRIGUEZ ([phone])[facility] ([facility])[address] [place] [address] Hemoglobin (Bld) [Mass/Vol] 7.5 g/dL Low 11.7-16.0 [facility] Comment on above: Performed By: #### L [id number] ####Client Service Supervisor: VEENA RODRIGUEZ ([phone])[facility] ([facility])[address] [place] [address] Performed By: #### L [id number] ####Client Service Supervisor: VEENA RODRIGUEZ ([phone])[facility])[address] [place] [address] MCH (RBC) [Entitic mass] 29.3 pg Normal 26.0-34.0 [facility] Comment on above: Performed By: #### L [id number] ####Client Service Supervisor: VEENA RODRIGUEZ ([phone])[facility] ([facility])[address] [place] [address] Performed By: #### L [id number] ####Client Service Supervisor: VEENA RODRIGUEZ ([phone])[facility] ([facility])[address] [place] [address] MCV (RBC) [Entitic vol] 88.0 fL Normal 80.0-98.0 [facility] Comment on above: Performed By: #### L [id number] ####Client Service Supervisor: VEENA RODRIGUEZ ([phone])[facility] ([facility])[address] [place] [address] Performed By: #### L [id number] ####Client Service Supervisor: VEENA RODRIGUEZ ([phone])[facility] ([facility])[address] [place] [address] Platelet mean volume (Bld) [Entitic vol] 7.9 fL Normal 7.4-12.4 [facility] Comment on above: Performed By: #### L [id number] ####Client Service Supervisor: VEENA RODRIGUEZ ([phone])[facility] ([facility])[address] [place] [address] Performed By: #### L [id number] ####Client Service Supervisor: VEENA RODRIGUEZ ([phone])[facility] ([facility])[address] [place] [address] Platelets (Bld) [#/Vol] 239 10*3/uL Normal 140-440 [facility] Comment on above: Performed By: #### L [id number] ####Client Service Supervisor: VEENA RODRIGUEZ ([phone])[facility] ([facility])[address] [place] [address] Performed By: #### L [id number] ####Client Service Supervisor: VEENA RODRIGUEZ ([phone])[facility] ([facility])[address] [place] [address] RBC (Bld) [#/Vol] 2.57 10*6/uL Low 3.8-5.20 [facility] Comment on above: Performed By: #### L [id number] ####Client Service Supervisor: VEENA RODRIGUEZ ([phone])[facility] ([facility])[address] [place] [address] Performed By: #### L [id number] ####Client Service Supervisor: VEENA RODRIGUEZ ([phone])[facility] ([facility])[address] [place] [address] WBC (Bld) [#/Vol] 8.8 10*3/uL Normal 3.6-10.7 [facility] Comment on above: Performed By: #### L [id number] ####Client Service Supervisor: VEENA RODRIGUEZ ([phone])[facility] ([facility])[address] [place] [address] Performed By: #### L [id number] ####Client Service Supervisor: VEENA RODRIGUEZ ([phone])[facility])[address] [place] [address] CBC panel Auto (Bld)on 12-30 Erythrocyte distribution width (RBC) [Ratio] 14.8 % High 11.5 - 14.5 % [facility] Hematocrit (Bld) [Volume fraction] 22.6 % Low 35.0 - 47.0 % [facility] Hemoglobin (Bld) [Mass/Vol] 7.5 g/dL Low 11.7 - 16.0 g/dL [facility] Interpretation and review of laboratory results Abnormal [facility] MCH (RBC) [Entitic mass] 29.3 pg 26.0 - 34.0 pg [facility] MCHC (RBC) [Mass/Vol] 33.2 % 32.0 - 36.0 % [facility] MCV (RBC) [Entitic vol] 88.0 fL 80.0 - 98.0 fL [facility] Platelet mean volume (Bld) [Entitic vol] 7.9 fL 7.4 - 12.4 fL [facility] Platelets (Bld) [#/Vol] 239 10*3/uL 140 - 440 10*3/uL [facility] RBC (Bld) [#/Vol] 2.57 10*6/uL Low 3.8 - 5.20 10*6/uL [facility] WBC (Bld) [#/Vol] 8.8 10*3/uL 3.6 - 10.7 10*3/uL [facility] IDNon 12-30-2022 IDN Problem: Knowledge Deficit Goal: Patient/family/caregiver demonstrates understanding of disease process, treatment plan, medications, and discharge instructions Outcome: Progressing Problem: Potential for Compromised Skin Integrity Goal: Skin Integrity is Maintained or Improved Outcome: Progressing Goal: Nutritional status is improving Outcome: Progressing Problem: Urinary Incontinence Goal: Perineal skin integrity is maintained or improved Outcome: Progressing Problem: Safety - Non-violent/Interference with Medical Treatment Restraint Goal: Remains free of injury from restraints (Restraint for Interference with University Counselor) Outcome: Progressing Goal: Free from restraint(s) (Restraint for Interference with University Counselor) Outcome: Progressing Normal [facility] IDN Normal [facility] POCT glucose meteron 023 Glucose [Mass/Vol] 160 mg/dL High 70 - 100 mg/dL [facility] Interpretation and review of laboratory results Abnormal [facility] Glucose [Mass/Vol] 184 mg/dL High 70 - 100 mg/dL [facility] Interpretation and review of laboratory results Abnormal [facility] Glucose [Mass/Vol] 114 mg/dL High 70 - 100 mg/dL [facility] Interpretation and review of laboratory results Abnormal [facility] Glucose [Mass/Vol] 104 mg/dL High 70 - 100 mg/dL [facility] Interpretation and review of laboratory results Abnormal [facility] Progress Noteon 12-30-2022 Progress Note Orthopedic surgery resident to the bedside to evaluate concerns of lower extremity wound drainage. On evaluation the dressing over the incision sites on the lateral distal femur is saturated with serosanguineous drainage. Previous dressing was removed which demonstrates a noninfectious appearing incision with intact yasmeen. There is no erythema or purulent discharge. At this time a fresh 4 x 4 gauze and Tegaderm dressing was applied. Ronnie Godinez MD PGY2 Orthopaedic Surgery 12/30/2022 4:51 PM Normal [facility] Progress Note Normal [facility] Progress Note Normal [facility] Progress Note OCCUPATIONAL THERAPY [facility] Treatment Note Name/MRN: Donna Marsh ([id number]) Date of : 1955 Age: 67 y.o. Room/Bed: 6114/6114 A Discharge Recommendation: SNF Equipment Needed: TBD at next level of care Prior Level of Function: Per pt report ADL Assistance: Independent Ambulation Assistance: FWW in the home, scooter in community Transfer Assistance: Independent Assessment Pt required two skilled therapist for bed mobility, transfers, LB dressing and mobility. Recommend IPR or SNF at discharge; pt requiring increased need of assistance, far below baseline. Subjective Pt agreeable to OT services. Pain: RN managing pain. Medical Precautions: No active isolations Proper PPE donned/doffed in accordance with facility standards. Fall Risk: Truong Fall Risk Score: 85 (High Risk) Precautions/Restrictions: Right LE Weight Bearing: Weight Bearing As Tolerated Left LE Weight Bearing: Weight Bearing As Tolerated [place] Family/Caregiver Present: none Objective ADLs Grooming: Supervision, after setup completed seated in recliner UE Bathing: Supervision, after setup in recliner LE Bathing: Max Assist in recliner LE Dressing: Max Assist, x2 Person Assist, donning brief, doff/don socks Toileting: Max Assist, x2 Person Assist, sit to stands and stand step transfers as precursor to ADL goals Pt educated on AE hip kit for compensatory LB ADL techniques, strategies for progression with toileting with use of BSC or rolling recliner to bathroom for stand step/pivot transfer; trials not attempted this session. Bed Mobility Supine to sit: Max Assist, x2 Person Assist, Use of glide sheet Scooting: Max Assist, x2 Person Assist, Difficulty shifting hip weight to scoot EOB; use of glide sheet to advance hips; second person due to L lateral lean sitting EOB due to weakness and attempts to off load weight for pain reduction. Cues for improved posture/balance sitting EOB. Transfers/Mobility Sit to stand: Max Assist, x2 Person Assist Stand to sit: Max Assist, x2 Person Assist Stand step: Max Assist, x2 Person Assist Standing balance: Max Assist, x2 Person Assist EOB > recliner w/ minimal tolerance for WB RLE with static standing / transfers. Device(s) used: front wheeled walker Plan Continue acute OT per plan of care. Safety/Education Safety Safety Devices in place: All fall risk precautions in place, call light within reach, left in chair, gait belt, patient at risk for falls, nurse notified, and no alarms engaged upon entry Restraints: No Education Education Given To: patient Education Provided: OT Role, Plan of Care, Precautions, ADL Adaptive Strategies, Transfer Training, Energy Conservation, Equipment, Fall Prevention Education, Discharge Recommendations, and Benefits of Increasing Activity Education Method: Verbal Barriers to Learning: None Education Outcome: Verbalized Understanding and Continued Education Needed AM-PAC AM-PAC Inpatient Daily Activity Raw Score: 16 ADL Inpatient CMS G-Code Modifier: CK Goals Patient Stated Goal: Improve function Encounter Problems Encounter Problems (Active) Balance Static stand x 30 seconds mod assist in prep for LE ADLs/toileting. (Progressing) Start: 12/28/22 Expected End: 01/25/23 Dressings Lower Extremities Patient will dress lower body mod assist. (Progressing) Start: 12/28/22 Expected End: 01/25/23 Grooming Grooming EOB supervision. (Progressing) Start: 12/28/22 Expected End: 01/25/23 Safety Recall 3 safe transfer techniques prior to ADL transfers, no cues. (Progressing) Start: 12/28/22 Expected End: 01/25/23 Toileting Patient will complete toileting tasks with mod assist. (Progressing) Start: 12/28/22 Expected End: 01/25/23 Toilet transfer mod assist. (Progressing) Start: 12/28/22 Expected End: 01/25/23 Therapy Time Individual Co-treatment Time In 1103 Time Out 1144 Minutes 41 Timed Code Treatment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 above: Performed By: #### L [id number] ####Client Service Supervisor: VEENA RODRIGUEZ ([phone])[facility] ([facility])[address] [place] [address] [place] Performed By: #### L [id number] ####Client Service Supervisor: VEENA RODRIGUEZ ([phone])[facility] ([facility])[address] [place] [address] FIBTEM MAXIMUM CLOT FIRMNESS 12 mm Normal 7-24 [facility] Comment on above: Performed By: #### L [id number] ####Client Service Supervisor: VEENA RODRIGUEZ ([phone])[facility] ([facility])[address] [place] [address] Performed By: #### L [id number] ####Client Service Supervisor: VEENA RODRIGUEZ ([phone])[facility] ([facility])[address] [place] [address] Serum or plasma calcium timbo urement (mass/volume)Ordered By: Jen Olivares on 12-23-2022 Calcium [Mass/Vol] 9.2 mg/dL 8.5-10.1 [facility] Serum or plasma creatinine m easurement (mass/volume)Ordered By: Jen Olivares on 12-23-2022 Creatinine [Mass/Vol] 1.05 mg/dL 0.55-1.02 [facility] Comment on above: The validity of the calculated GFR & GFRAA in patients over 70 years has not been determined. Clinical correlation is essential. Serum or plasma urea nitroge n measurement (mass/volume)Ordered By: Jen Olivares on 12-23-2022 Urea nitrogen [Mass/Vol] 23 mg/dL 7-18 [facility] Squamous epithelial cells de tection in urine sediment by light microscopyOrdered By: Jen Olivares on 12-23-2022 Epithelial cells.squamous LM Ql (Urine sed) 0 SEEN /hpf 5-10 [facility] Thin prep Papanicolaou smear with manual screeningOrdered By: Jen Olivares on 12-23-2022 Thin prep Papanicolaou smear with manual screening 7 5-15 [facility] Urine blood detectionOrdered By: Jen Olivares on 12-23-2022 RBC Ql (U) 150 /ul Negative [facility] RBC Ql (U) 0 SEEN /hpf 0-5 [facility] Urine clarityOrdered By: Kaya Olivares on 12-23-2022 Clarity (U) Sl. Cloudy Clear [facility] Urine color determinationOrd ered By: Jen Olivares on 12-23-2022 Color (U) Yellow Yellow [facility] Urine glucose detectionOrder ed By: Jen Olivares on 12-23-2022 Glucose Ql (U) Normal mg/dl Normal [facility] Urine leukocyte esterase det ection by dipstickOrdered By: Jen Olivares on 12-23-2022 Leukocyte esterase Test strip Ql (U) 500 /ul Negative [facility] Urine pHOrdered By: Jen Olivares on 12-23-2022 pH (U) 5.0 [pH] 5.0 - 8.0 [facility] Urine sediment bacteria coun t by microscopy (number/high power field)Ordered By: Jen Olivares on 12-23-2022 Bacteria LM.HPF (Urine sed) [#/Area] 2 /[HPF] None Seen [facility] Urine specific gravity measu rementOrdered By: Jen Olivares on 12-23-2022 Specific gravity (U) [Rel density] 1.015 1.002-1.030 [facility] Urobilinogen Auto test strip Ql (U)Ordered By: Jen Olivares on 12-23-2022 Urobilinogen Ql (U) Normal mg/dl Normal [facility] XR Chest Single viewon 12-23 [facility] Radiology Study observation (narrative) [facility] XR Chest Single viewOrdered By: Je Valle on 12-23-2022 [facility] [employer] Work Phone: XR Femur - left [address] [facility] Radiology Study observation (narrative) [facility] XR Femur - right 2 [employer] 1 02-22-[address] [facility] Radiology Study observation (narrative) [facility] XR Pelvis 3 [employer] 12-24-[address] [facility] Radiology Study observation (narrative) [facility] aPTT Coag (Bld) [Time]on aPTT Coag (PPP) [Time] 30.0 s 20.0 - 30.5 s [facility] Interpretation and review of laboratory results Normal [facility] 36on 11-10-2022 36 Normal [facility] 36 Normal [facility] Progress Noteon 11-06-2022 Progress Note Normal [facility] XR HIP 2 OR 3 VW LEFTon 10-14 XR HIP 2 OR 3 VW LEFT Normal [facility] 36 10-30-2022 36 Spoke with Wendy and read her what rx stated start 10/15 end 11/14. She verbalized understanding. [place] [address] If they wanted 30 da ys that is fine, can take until 11/14 [place] [address] Disregard last TE. S ent it after you sent me TE. [place] [address] 15 dueñas since script sent. So after the since script was sent 10/18. [place] [address] Please advise This is what I see in the Rx Start Date: 10/15/22 End Date: 11/14/22 after 30 doses Is this correct? [place] [address] [address] from [facility] [place] called in asking for an end date for Lovenox. Patient was put on the injection upon discharge and they do not know when they are able to discontinue it. Please call Wendy and advise. Patient is also located in [address] 10-17-2022 36 Conversion left tota l hip arthroplasty DOS: 10/10/[address] Parks at the phone number provided in the TE, no answer. LVM to call office if still needed, phone number provided [place] [id number] Can you call and fin d out what questions he may have? [address] 10-16-[address] [facility] Anion gap [Moles/Vol] 7 mmol/L 3 - 13 mmol/L [facility] Calcium [Mass/Vol] 8.6 mg/dL 8.4 - 10. 4 mg/dL [facility] Chloride [Moles/Vol] 101 mmol/L 98 - 10 7 mmol/L [facility] CO2 [Moles/Vol] 28 mmol/L 22 - 30 mmol/L [facility] Creatinine [Mass/Vol] 0.56 mg/dL 0.52 - 1.04 mg/dL [facility] GFR/1.73 sq M.predicted MDRD (S/P/Bld) [Vol rate/Area] - PINF [facility] Glucose [Mass/Vol] 154 mg/dL High 70 - 100 mg/dL [facility] Interpretation and review of laboratory results Abnormal [facility] Potassium [Moles/Vol] 4.8 mmol/L 3.5 - 5.1 mmol/L [facility] Sodium [Moles/Vol] 136 mmol/L 135 - 145 mmol/L [facility] Urea nitrogen [Mass/Vol] 17 mg/dL 7 - 17 mg/dL [facility] CARECOORDon 10-15-2022 [facility] Direction office services coordinator notified of pt dc to [facility]. Normal [facility] Normal [facility] Per CM request, p t discharge orders faxed to . Normal [facility] Normal [facility] CBC W Auto Differential pane l (Bld)Ordered By: Miguel Lockwood on 10-15-2022 Basophils (Bld) [#/Vol] 0.0 10*3/uL 0.0 - 0.2 10*3/uL [facility] Basophils/100 WBC (Bld) 0.2 % 0.0 - 2.0 % [facility] Eosinophils (Bld) [#/Vol] 0.5 10*3/uL 0.0 - 0.5 10*3/uL [facility] Eosinophils/100 WBC (Bld) 3.6 % 1.0 - 6.0 % [facility] Erythrocyte distribution width (RBC) [Ratio] 15.0 % High 11.5 - 14.5 % [facility] Hematocrit (Bld) [Volume fraction] 28.0 % Low 35.0 - 47.0 % [facility] Hemoglobin (Bld) [Mass/Vol] 9.0 g/dL Low 11.7 - 16.0 g/dL [facility] Interpretation and review of laboratory results Abnormal [facility] Lymphocytes (Bld) [#/Vol] 2.4 10*3/uL 1.0 - 4.3 10*3/uL [facility] Lymphocytes/100 WBC (Bld) 17.7 % Low 20.0 - 40.0 % [facility] MCH (RBC) [Entitic mass] 29.3 pg 26.0 - 34.0 pg [facility] MCHC (RBC) [Mass/Vol] 32.2 % 32.0 - 36.0 % [facility] MCV (RBC) [Entitic vol] 90.8 fL 80.0 - 98.0 fL [facility] Monocytes (Bld) [#/Vol] 0.8 10*3/uL 0.0 - 0.8 10*3/uL [facility] Monocytes/100 WBC (Bld) 5.8 % 2.0 - 10.0 % [facility] Neutrophils (Bld) [#/Vol] 9.9 10*3/uL High 1.8 - 7.0 10*3/uL [facility] Neutrophils/100 WBC (Bld) 72.7 % 40.0 - 80.0 % [facility] Nucleated RBC/100 WBC (Bld) [Ratio] 0.0 % [facility] Platelet mean volume (Bld) [Entitic vol] 8.0 fL 7.4 - 12.4 fL [facility] Platelets (Bld) [#/Vol] 301 10*3/uL 140 - 440 10*3/uL [facility] RBC (Bld) [#/Vol] 3.09 10*6/uL Low 3.8 - 5.20 10*6/uL [facility] WBC (Bld) [#/Vol] 13.6 10*3/uL High 3.6 - 10.7 10*3/uL [facility] Laboratory - Chemistry and C hemistry - challengeon 10-15-2022 Glucose [Mass/Vol] 231 mg/dL High 70 - 100 mg/dL [facility] Glucose [Mass/Vol] 118 mg/dL High 70 - 100 mg/dL [facility] No Panel Informationon 10-15 Interpretation and review of laboratory results Abnormal [facility] Interpretation and review of laboratory results Abnormal [facility] Nursing Noteon 10-15-2022 Nursing Note Report given to HAMILTON knapp at [facility]. Pt waiting on transport. Normal [facility] Progress Noteon 10-15-2022 Progress Note Femoral head on that failed nail, no tumor. Normal [facility] Progress Note Normal [facility] Bacteria identified Aer cx N om (Unsp spec)Ordered By: Lanre Gonsalez on 10-14-2022 Gram Stain Result Rare Polymorphonucle ar leukocytes per low power field [facility] Gram Stain Result No organisms seen [facility] Bacteria identified Aer cx N om (Unsp spec)Ordered By: Tiana Pollard on 10-14-2022 Gram Stain Result Rare Polymorphonucle ar leukocytes per low power field [facility] Gram Stain Result No organisms seen [facility] Bacteria identified Aer cx N om (Unsp spec)on 10-14-2022 Gram Stain Result Moderate Polymorphonuclear leukocytes per low power field [facility] Gram Stain Result No organisms seen [facility] Basic metabolic 1998 panelon 10-14-2022 Anion gap [Moles/Vol] 6 mmol/L 3 - 13 mmol/L [facility] Calcium [Mass/Vol] 8.3 mg/dL Low 8.4 - 10. 4 mg/dL [facility] Chloride [Moles/Vol] 102 mmol/L 98 - 10 7 mmol/L [facility] CO2 [Moles/Vol] 29 mmol/L 22 - 30 mmol/L [facility] Creatinine [Mass/Vol] 0.58 mg/dL 0.52 - 1.04 mg/dL [facility] GFR/1.73 sq M.predicted MDRD (S/P/Bld) [Vol rate/Area] - PINF [facility] Glucose [Mass/Vol] 137 mg/dL High 70 - 100 mg/dL [facility] Interpretation and review of laboratory results Abnormal [facility] Potassium [Moles/Vol] 4.3 mmol/L 3.5 - 5.1 mmol/L [facility] Sodium [Moles/Vol] 136 mmol/L 135 - 145 mmol/L [facility] Urea nitrogen [Mass/Vol] 14 mg/dL 7 - 17 mg/dL [facility] CARECOORDon 10-14-2022 CAR[place]OORD Normal [facility] CBC W Auto Differential pane l (Bld)on 10-14-2022 Basophils (Bld) [#/Vol] 0.1 10*3/uL 0.0 - 0.2 10*3/uL [facility] Basophils/100 WBC (Bld) 0.9 % 0.0 - 2.0 % [facility] Eosinophils (Bld) [#/Vol] 0.4 10*3/uL 0.0 - 0.5 10*3/uL [facility] Eosinophils/100 WBC (Bld) 3.4 % 1.0 - 6.0 % [facility] Erythrocyte distribution width (RBC) [Ratio] 14.9 % High 11.5 - 14.5 % [facility] Hematocrit (Bld) [Volume fraction] 28.2 % Low 35.0 - 47.0 % [facility] Hemoglobin (Bld) [Mass/Vol] 9.1 g/dL Low 11.7 - 16.0 g/dL [facility] Interpretation and review of laboratory results Abnormal [facility] Lymphocytes (Bld) [#/Vol] 3.3 10*3/uL 1.0 - 4.3 10*3/uL [facility] Lymphocytes/100 WBC (Bld) 27.4 % 20.0 - 40.0 % [facility] MCH (RBC) [Entitic mass] 29.5 pg 26.0 - 34.0 pg [facility] MCHC (RBC) [Mass/Vol] 32.3 % 32.0 - 36.0 % [facility] MCV (RBC) [Entitic vol] 91.4 fL 80.0 - 98.0 fL [facility] Monocytes (Bld) [#/Vol] 0.7 10*3/uL 0.0 - 0.8 10*3/uL [facility] Monocytes/100 WBC (Bld) 5.9 % 2.0 - 10.0 % [facility] Neutrophils (Bld) [#/Vol] 7.5 10*3/uL High 1.8 - 7.0 10*3/uL [facility] Neutrophils/100 WBC (Bld) 62.4 % 40.0 - 80.0 % [facility] Nucleated RBC/100 WBC (Bld) [Ratio] 0.1 % [facility] Platelet mean volume (Bld) [Entitic vol] 8.0 fL 7.4 - 12.4 fL [facility] Platelets (Bld) [#/Vol] 261 10*3/uL 140 - 440 10*3/uL [facility] RBC (Bld) [#/Vol] 3.08 10*6/uL Low 3.8 - 5.20 10*6/uL [facility] WBC (Bld) [#/Vol] 12.1 10*3/uL High 3.6 - 10.7 10*3/uL [facility] Laboratory - Chemistry and C hemistry - challengeon 10-14-2022 Glucose [Mass/Vol] 190 mg/dL High 70 - 100 mg/dL [facility] Glucose [Mass/Vol] 209 mg/dL High 70 - 100 mg/dL [facility] Glucose [Mass/Vol] 193 mg/dL High 70 - 100 mg/dL [facility] Glucose [Mass/Vol] 88 mg/dL 70 - 100 mg/dL [facility] Laboratory - Microbiology an d Antimicrobial susceptibilityOrdered By: Lanre Gonsalez on 10-14-2022 Bacteria identified Aer cx Nom (Unsp spec) No growth at 72 hours [facility] Laboratory - Microbiology an d Antimicrobial susceptibilityOrdered By: Tiana Pollard on 10-14-2022 Bacteria identified Aer cx Nom (Unsp spec) No growth at 72 hours [facility] Laboratory - Microbiology an d Antimicrobial susceptibilityon 10-14-2022 Bacteria identified Aer cx Nom (Unsp spec) No growth at 72 hours [facility] No Panel Informationon 10-14 Interpretation and review of laboratory results Abnormal [facility] Interpretation and review of laboratory results Abnormal [facility] Interpretation and review of laboratory results Abnormal [facility] Interpretation and review of laboratory results Normal [facility] Blood Expiration Date [id number] S [facility] Crossmatch interpretation COMP [facility] Dispense Status Released from Crossmatch [facility] Product Blood Type 5100 [facility] PRODUCT CODE [id number] [facility] ABO O [facility] Number [id number] [facility] Number [id number] [facility] RH Positive [facility] Unit Volume 300 mL [facility] Progress Noteon 10-14-2022 Progress Note Normal [facility] Progress Note Normal [facility] Progress Note Normal [facility] Basic metabolic 1998 panelon 10-13-2022 Anion gap [Moles/Vol] 8 mmol/L 3 - 13 mmol/L [facility] Calcium [Mass/Vol] 8.3 mg/dL Low 8.4 - 10. 4 mg/dL [facility] Chloride [Moles/Vol] 99 mmol/L 98 - 10 7 mmol/L [facility] CO2 [Moles/Vol] 29 mmol/L 22 - 30 mmol/L [facility] Creatinine [Mass/Vol] 0.55 mg/dL 0.52 - 1.04 mg/dL [facility] GFR/1.73 sq M.predicted MDRD (S/P/Bld) [Vol rate/Area] - PINF [facility] Glucose [Mass/Vol] 103 mg/dL High 70 - 100 mg/dL [facility] Interpretation and review of laboratory results Abnormal [facility] Potassium [Moles/Vol] 4.2 mmol/L 3.5 - 5.1 mmol/L [facility] Sodium [Moles/Vol] 136 mmol/L 135 - 145 mmol/L [facility] Urea nitrogen [Mass/Vol] 14 mg/dL 7 - 17 mg/dL [facility] CARECOORDon 10-13-2022 CARECOSTITES Normal [facility] CBC W Auto Differential pane l (Bld)on 10-13-2022 Basophils (Bld) [#/Vol] 0.0 10*3/uL 0.0 - 0.2 10*3/uL [facility] Basophils/100 WBC (Bld) 0.1 % 0.0 - 2.0 % [facility] Eosinophils (Bld) [#/Vol] 0.2 10*3/uL 0.0 - 0.5 10*3/uL [facility] Eosinophils/100 WBC (Bld) 1.6 % 1.0 - 6.0 % [facility] Erythrocyte distribution width (RBC) [Ratio] 15.0 % High 11.5 - 14.5 % [facility] Hematocrit (Bld) [Volume fraction] 29.8 % Low 35.0 - 47.0 % [facility] Hemoglobin (Bld) [Mass/Vol] 9.5 g/dL Low 11.7 - 16.0 g/dL [facility] Interpretation and review of laboratory results Abnormal [facility] Lymphocytes (Bld) [#/Vol] 3.8 10*3/uL 1.0 - 4.3 10*3/uL [facility] Lymphocytes/100 WBC (Bld) 26.8 % 20.0 - 40.0 % [facility] MCH (RBC) [Entitic mass] 29.2 pg 26.0 - 34.0 pg [facility] MCHC (RBC) [Mass/Vol] 31.9 % Low 32.0 - 36.0 % [facility] MCV (RBC) [Entitic vol] 91.7 fL 80.0 - 98.0 fL [facility] Monocytes (Bld) [#/Vol] 1.0 10*3/uL High 0.0 - 0.8 10*3/uL [facility] Monocytes/100 WBC (Bld) 7.1 % 2.0 - 10.0 % [facility] Neutrophils (Bld) [#/Vol] 9.0 10*3/uL High 1.8 - 7.0 10*3/uL [facility] Neutrophils/100 WBC (Bld) 64.4 % 40.0 - 80.0 % [facility] Nucleated RBC/100 WBC (Bld) [Ratio] 0.0 % [facility] Platelet mean volume (Bld) [Entitic vol] 7.9 fL 7.4 - 12.4 fL [facility] Platelets (Bld) [#/Vol] 247 10*3/uL 140 - 440 10*3/uL [facility] RBC (Bld) [#/Vol] 3.25 10*6/uL Low 3.8 - 5.20 10*6/uL [facility] WBC (Bld) [#/Vol] 14.1 10*3/uL High 3.6 - 10.7 10*3/uL [facility] Laboratory - Chemistry and C hemistry - challengeon 10-13-2022 Glucose [Mass/Vol] 213 mg/dL High 70 - 100 mg/dL [facility] Glucose [Mass/Vol] 135 mg/dL High 70 - 100 mg/dL [facility] Glucose [Mass/Vol] 133 mg/dL High 70 - 100 mg/dL [facility] Glucose [Mass/Vol] 109 mg/dL High 70 - 100 mg/dL [facility] No Panel Informationon 10-13 Interpretation and review of laboratory results Abnormal [facility] Interpretation and review of laboratory results Abnormal [facility] Interpretation and review of laboratory results Abnormal [facility] Interpretation and review of laboratory results Abnormal [facility] Progress Noteon 10-13-2022 Progress Note Normal [facility] Progress Note Normal [facility] Progress Note Normal [facility] Basic metabolic 1998 panelon 10-12-2022 Anion gap [Moles/Vol] 12 mmol/L 3 - 13 mmol/L [facility] Calcium [Mass/Vol] 8.6 mg/dL 8.4 - 10. 4 mg/dL [facility] Chloride [Moles/Vol] 101 mmol/L 98 - 10 7 mmol/L [facility] CO2 [Moles/Vol] 27 mmol/L 22 - 30 mmol/L [facility] Creatinine [Mass/Vol] 0.64 mg/dL 0.52 - 1.04 mg/dL [facility] GFR/1.73 sq M.predicted MDRD (S/P/Bld) [Vol rate/Area] - PINF [facility] Glucose [Mass/Vol] 212 mg/dL High 70 - 100 mg/dL [facility] Interpretation and review of laboratory results Abnormal [facility] Potassium [Moles/Vol] 4.4 mmol/L 3.5 - 5.1 mmol/L [facility] Sodium [Moles/Vol] 140 mmol/L 135 - 145 mmol/L [facility] Urea nitrogen [Mass/Vol] 17 mg/dL 7 - 17 mg/dL [facility] CARECOORDon 10-12-2022 [facility] coverage for toda y. Plan is for pt to return to [facility] when stable. Ambulance form completed and placed on pt's chart. Normal [facility] CARECOORD Normal [facility] CBC W Auto Differential pane l (Bld)Ordered By: Jamie South on 10-12-2022 Basophils (Bld) [#/Vol] 0.0 10*3/uL 0.0 - 0.2 10*3/uL [facility] Basophils/100 WBC (Bld) 0.1 % 0.0 - 2.0 % [facility] Eosinophils (Bld) [#/Vol] 0.1 10*3/uL 0.0 - 0.5 10*3/uL [facility] Eosinophils/100 WBC (Bld) 0.6 % Low 1.0 - 6.0 % [facility] Erythrocyte distribution width (RBC) [Ratio] 14.8 % High 11.5 - 14.5 % [facility] Hematocrit (Bld) [Volume fraction] 28.0 % Low 35.0 - 47.0 % [facility] Hemoglobin (Bld) [Mass/Vol] 9.1 g/dL Low 11.7 - 16.0 g/dL [facility] Interpretation and review of laboratory results Abnormal [facility] Lymphocytes (Bld) [#/Vol] 2.6 10*3/uL 1.0 - 4.3 10*3/uL [facility] Lymphocytes/100 WBC (Bld) 16.7 % Low 20.0 - 40.0 % [facility] MCH (RBC) [Entitic mass] 29.7 pg 26.0 - 34.0 pg [facility] MCHC (RBC) [Mass/Vol] 32.4 % 32.0 - 36.0 % [facility] MCV (RBC) [Entitic vol] 91.7 fL 80.0 - 98.0 fL [facility] Monocytes (Bld) [#/Vol] 1.0 10*3/uL High 0.0 - 0.8 10*3/uL [facility] Monocytes/100 WBC (Bld) 6.8 % 2.0 - 10.0 % [facility] Neutrophils (Bld) [#/Vol] 11.6 10*3/uL High 1.8 - 7.0 10*3/uL [facility] Neutrophils/100 WBC (Bld) 75.8 % 40.0 - 80.0 % [facility] Nucleated RBC/100 WBC (Bld) [Ratio] 0.0 % [facility] Platelet mean volume (Bld) [Entitic vol] 8.1 fL 7.4 - 12.4 fL [facility] Platelets (Bld) [#/Vol] 233 10*3/uL 140 - 440 10*3/uL [facility] RBC (Bld) [#/Vol] 3.05 10*6/uL Low 3.8 - 5.20 10*6/uL [facility] WBC (Bld) [#/Vol] 15.3 10*3/uL High 3.6 - 10.7 10*3/uL [facility] IDNon 10-12-2022 IDN Normal [facility] Laboratory - Chemistry and C hemistry - challengeon 10-12-2022 Glucose [Mass/Vol] 206 mg/dL High 70 - 100 mg/dL [facility] Glucose [Mass/Vol] 170 mg/dL High 70 - 100 mg/dL [facility] Glucose [Mass/Vol] 207 mg/dL High 70 - 100 mg/dL [facility] Glucose [Mass/Vol] 120 mg/dL High 70 - 100 mg/dL [facility] No Panel Informationon 10-12 Interpretation and review of laboratory results Abnormal [facility] Interpretation and review of laboratory results Abnormal [facility] Interpretation and review of laboratory results Abnormal [facility] Interpretation and review of laboratory results Abnormal [facility] Progress Noteon 10-12-2022 Progress Note Normal [facility] Progress Note Normal [facility] Progress Note Normal [facility] Progress Note Normal [facility] Basic metabolic 1998 panelon 10-11-2022 Anion gap [Moles/Vol] 15 mmol/L High 3 - 13 mmol/L [facility] Calcium [Mass/Vol] 9.0 mg/dL 8.4 - 10. 4 mg/dL [facility] Chloride [Moles/Vol] 99 mmol/L 98 - 10 7 mmol/L [facility] CO2 [Moles/Vol] 20 mmol/L Low 22 - 30 mmol/L [facility] Creatinine [Mass/Vol] 0.62 mg/dL 0.52 - 1.04 mg/dL [facility] GFR/1.73 sq M.predicted MDRD (S/P/Bld) [Vol rate/Area] - PINF [facility] Glucose [Mass/Vol] 323 mg/dL High 70 - 100 mg/dL [facility] Interpretation and review of laboratory results Abnormal [facility] Potassium [Moles/Vol] 5.0 mmol/L 3.5 - 5.1 mmol/L [facility] Sodium [Moles/Vol] 135 mmol/L 135 - 145 mmol/L [facility] Urea nitrogen [Mass/Vol] 20 mg/dL High 7 - 17 mg/dL [facility] CARECOORDon 10-11-2022 CAR[place]OORD Normal [facility] CAREPLNon 10-11-2022 CAREPLN Normal [facility] CBC W Auto Differential pane l (Bld)Ordered By: Priya Torres on 10-11-2022 Basophils (Bld) [#/Vol] 0.0 10*3/uL 0.0 - 0.2 10*3/uL [facility] Basophils/100 WBC (Bld) 0.0 % 0.0 - 2.0 % [facility] Eosinophils (Bld) [#/Vol] 0.0 10*3/uL 0.0 - 0.5 10*3/uL [facility] Eosinophils/100 WBC (Bld) 0.0 % Low 1.0 - 6.0 % [facility] Erythrocyte distribution width (RBC) [Ratio] 14.8 % High 11.5 - 14.5 % [facility] Hematocrit (Bld) [Volume fraction] 29.5 % Low 35.0 - 47.0 % [facility] Hemoglobin (Bld) [Mass/Vol] 9.7 g/dL Low 11.7 - 16.0 g/dL [facility] Interpretation and review of laboratory results Abnormal [facility] Lymphocytes (Bld) [#/Vol] 0.4 10*3/uL Low 1.0 - 4.3 10*3/uL [facility] Lymphocytes/100 WBC (Bld) 3.1 % Low 20.0 - 40.0 % [facility] MCH (RBC) [Entitic mass] 29.9 pg 26.0 - 34.0 pg [facility] MCHC (RBC) [Mass/Vol] 32.9 % 32.0 - 36.0 % [facility] MCV (RBC) [Entitic vol] 91.1 fL 80.0 - 98.0 fL [facility] Monocytes (Bld) [#/Vol] 0.2 10*3/uL 0.0 - 0.8 10*3/uL [facility] Monocytes/100 WBC (Bld) 1.5 % Low 2.0 - 10.0 % [facility] Neutrophils (Bld) [#/Vol] 13.3 10*3/uL High 1.8 - 7.0 10*3/uL [facility] Neutrophils/100 WBC (Bld) 95.4 % High 40.0 - 80.0 % [facility] Nucleated RBC/100 WBC (Bld) [Ratio] 0.0 % [facility] Platelet mean volume (Bld) [Entitic vol] 8.3 fL 7.4 - 12.4 fL [facility] Platelets (Bld) [#/Vol] 207 10*3/uL 140 - 440 10*3/uL [facility] RBC (Bld) [#/Vol] 3.24 10*6/uL Low 3.8 - 5.20 10*6/uL [facility] WBC (Bld) [#/Vol] 14.0 10*3/uL High 3.6 - 10.7 10*3/uL [facility] Laboratory - Chemistry and C hemistry - challengeon 10-11-2022 Glucose [Mass/Vol] 188 mg/dL High 70 - 100 mg/dL [facility] Glucose [Mass/Vol] 303 mg/dL High 70 - 100 mg/dL [facility] Glucose [Mass/Vol] mg/dL High 70 - 100 mg/dL [facility] Glucose [Mass/Vol] 318 mg/dL High 70 - 100 mg/dL [facility] No Panel Informationon 10-11 Interpretation and review of laboratory results Abnormal [facility] Interpretation and review of laboratory results Abnormal [facility] Interpretation and review of laboratory results Abnormal [facility] Interpretation and review of laboratory results Abnormal [facility] Progress Noteon 10-11-2022 Progress Note Normal [facility] Progress Note Normal [facility] Progress Note Normal [facility] Progress Note Normal [facility] Progress Note Normal [facility] Progress Note Normal [facility] [id number] 10-10-2022 [id number] Normal [facility] Anesthesia Noteon 10-10-2022 Anesthesia Note Normal [facility] Anesthesia Note Normal [facility] Basic metabolic 1998 panelon 10-10-2022 Anion gap [Moles/Vol] 9 mmol/L 3 - 13 mmol/L [facility] Calcium [Mass/Vol] 8.9 mg/dL 8.4 - 10. 4 mg/dL [facility] Chloride [Moles/Vol] 101 mmol/L 98 - 10 7 mmol/L [facility] CO2 [Moles/Vol] 25 mmol/L 22 - 30 mmol/L [facility] Creatinine [Mass/Vol] 0.72 mg/dL 0.52 - 1.04 mg/dL [facility] GFR/1.73 sq M.predicted MDRD (S/P/Bld) [Vol rate/Area] - PINF [facility] Glucose [Mass/Vol] 268 mg/dL High 70 - 100 mg/dL [facility] Interpretation and review of laboratory results Abnormal [facility] Potassium [Moles/Vol] 4.7 mmol/L 3.5 - 5.1 mmol/L [facility] Sodium [Moles/Vol] 135 mmol/L 135 - 145 mmol/L [facility] Urea nitrogen [Mass/Vol] 24 mg/dL High 7 - 17 mg/dL [facility] Blood type and Crossmatch pa cristofer (Bld)on 10-10-2022 ABO group Nom (Bld) O [facility] Blood group antibody screen GEL Ql Negative [facility] D Ag Ql (RBC) Positive [facility] CARECOORDon 10-10-2022 CARECOORD To OR via bedhossein ter at bedside. Normal [facility] CARECOORD Normal [facility] CBC W Auto Differential pane l (Bld)on 10-10-2022 Basophils (Bld) [#/Vol] 0.0 10*3/uL 0.0 - 0.2 10*3/uL [facility] Basophils/100 WBC (Bld) 0.4 % 0.0 - 2.0 % [facility] Eosinophils (Bld) [#/Vol] 0.2 10*3/uL 0.0 - 0.5 10*3/uL [facility] Eosinophils/100 WBC (Bld) 1.9 % 1.0 - 6.0 % [facility] Erythrocyte distribution width (RBC) [Ratio] 14.2 % 11.5 - 14.5 % [facility] Hematocrit (Bld) [Volume fraction] 34.5 % Low 35.0 - 47.0 % [facility] Hemoglobin (Bld) [Mass/Vol] 11.3 g/dL Low 11.7 - 16.0 g/dL [facility] Interpretation and review of laboratory results Abnormal [facility] Lymphocytes (Bld) [#/Vol] 3.3 10*3/uL 1.0 - 4.3 10*3/uL [facility] Lymphocytes/100 WBC (Bld) 30.7 % 20.0 - 40.0 % [facility] MCH (RBC) [Entitic mass] 30.0 pg 26.0 - 34.0 pg [facility] MCHC (RBC) [Mass/Vol] 32.9 % 32.0 - 36.0 % [facility] MCV (RBC) [Entitic vol] 91.2 fL 80.0 - 98.0 fL [facility] Monocytes (Bld) [#/Vol] 0.6 10*3/uL 0.0 - 0.8 10*3/uL [facility] Monocytes/100 WBC (Bld) 5.8 % 2.0 - 10.0 % [facility] Neutrophils (Bld) [#/Vol] 6.7 10*3/uL 1.8 - 7.0 10*3/uL [facility] Neutrophils/100 WBC (Bld) 61.2 % 40.0 - 80.0 % [facility] Nucleated RBC/100 WBC (Bld) [Ratio] 0.1 % [facility] Platelet mean volume (Bld) [Entitic vol] 7.8 fL 7.4 - 12.4 fL [facility] Platelets (Bld) [#/Vol] 302 10*3/uL 140 - 440 10*3/uL [facility] RBC (Bld) [#/Vol] 3.78 10*6/uL Low 3.8 - 5.20 10*6/uL [facility] WBC (Bld) [#/Vol] 10.9 10*3/uL High 3.6 - 10.7 10*3/uL [facility] Hemoglobin (Bld) [Mass/Vol]O rdered By: Alicja Cool on 10-10-2022 Hematocrit (Bld) [Volume fraction] 32.4 % Low 35.0 - 47.0 % [facility] Interpretation and review of laboratory results Abnormal [facility] Laboratory - Chemistry and C hemistry - challengeon 10-10-2022 Glucose [Mass/Vol] 354 mg/dL High 70 - 100 mg/dL [facility] Glucose [Mass/Vol] 250 mg/dL High 70 - 100 mg/dL [facility] Glucose [Mass/Vol] 159 mg/dL High 70 - 100 mg/dL [facility] Glucose [Mass/Vol] 213 mg/dL High 70 - 100 mg/dL [facility] Laboratory - Coagulationon 0 10-10-2022 aPTT Coag (PPP) [Time] 25.3 s 20.0 - 30.5 s [facility] INR Coag (PPP) [Relative time] 1.0 {INR} 0.9 - 1.1 [facility] PT Coag (Bld) [Time] 10.3 s 9.0 - 1 2.0 s [facility] Laboratory - Hematology and Cell countsOrdered By: Alicja Cool on 10-10-2022 Hemoglobin (Bld) [Mass/Vol] 10.4 g/dL Low 11.7 - 16.0 g/dL [facility] [employer] No Panel Informationon 10-10 Interpretation and review of laboratory results Abnormal [facility] Interpretation and review of laboratory results Abnormal [facility] [employer] [facility] Blood Expiration Date [id number] S [facility] Crossmatch interpretation COMP [facility] [employer] Dispense Status Transfused [facility] [employer] Product Blood Type 5100 [facility] [employer] PRODUCT CODE [id number] [facility] [employer] PRODUCT CODE [id number] [facility] ABO O [facility] [employer] Unit Number [id number] [facility] Unit Number [id number] [facility] RH Positive [facility] Unit Volume 300 mL [facility] Interpretation and review of laboratory results Abnormal [facility] Interpretation and review of laboratory results Abnormal [facility] Interpretation and review of laboratory results Normal [facility] Nursing Noteon 10-10-2022 Nursing Note [employer] Supervisor at bedside to b lock pt Normal [facility] Op Noteon 10-10-2022 Op Note Normal [facility] Progress Noteon 10-10-2022 Progress Note Normal [facility] Progress Note Normal [facility] Progress Note Normal [facility] Progress Note Normal [facility] Progress Note Normal [facility] XR FEMUR 2+ VW LEFTon 2022 XR FEMUR 2+ VW LEFT Normal [facility] XR Femur - left 2 Viewson [facility] Radiology Study observation (narrative) [facility] XR PELVIS 1-2 VIEWSon 2022 XR PELVIS 1-2 VIEWS Normal [facility] XR Pelvis 1 or 2 Viewson [facility] Radiology Study observation (narrative) [facility] XR Pelvis 1 or 2 ViewsOrdere d By: Gautam Freeman on 10-10-2022 [facility] Work Phone: Anesthesia Noteon 10-09-2022 Anesthesia Note Normal [facility] Basic metabolic 1998 panelon 10-09-2022 Anion gap [Moles/Vol] 10 mmol/L 3 - 13 mmol/L [facility] Calcium [Mass/Vol] 8.6 mg/dL 8.4 - 10. 4 mg/dL [facility] Chloride [Moles/Vol] 100 mmol/L 98 - 10 7 mmol/L [facility] CO2 [Moles/Vol] 25 mmol/L 22 - 30 mmol/L [facility] Creatinine [Mass/Vol] 0.70 mg/dL 0.52 - 1.04 mg/dL [facility] GFR/1.73 sq M.predicted MDRD (S/P/Bld) [Vol rate/Area] - PINF [facility] Glucose [Mass/Vol] 219 mg/dL High 70 - 100 mg/dL [facility] Interpretation and review of laboratory results Abnormal [facility] Potassium [Moles/Vol] 4.8 mmol/L 3.5 - 5.1 mmol/L [facility] Sodium [Moles/Vol] 134 mmol/L Low 135 - 145 mmol/L [facility] Urea nitrogen [Mass/Vol] 25 mg/dL High 7 - 17 mg/dL [facility] CARECOORDon 10-09-2022 CARECOORD Normal [facility] CBC W Auto Differential pane l (Bld)on 10-09-2022 Basophils (Bld) [#/Vol] 0.1 10*3/uL 0.0 - 0.2 10*3/uL [facility] Basophils/100 WBC (Bld) 0.8 % 0.0 - 2.0 % [facility] Eosinophils (Bld) [#/Vol] 0.3 10*3/uL 0.0 - 0.5 10*3/uL [facility] Eosinophils/100 WBC (Bld) 2.0 % 1.0 - 6.0 % [facility] Erythrocyte distribution width (RBC) [Ratio] 14.4 % 11.5 - 14.5 % [facility] Hematocrit (Bld) [Volume fraction] 32.3 % Low 35.0 - 47.0 % [facility] Hemoglobin (Bld) [Mass/Vol] 10.7 g/dL Low 11.7 - 16.0 g/dL [facility] Interpretation and review of laboratory results Abnormal [facility] Lymphocytes (Bld) [#/Vol] 4.1 10*3/uL 1.0 - 4.3 10*3/uL [facility] Lymphocytes/100 WBC (Bld) 30.3 % 20.0 - 40.0 % [facility] MCH (RBC) [Entitic mass] 29.7 pg 26.0 - 34.0 pg [facility] MCHC (RBC) [Mass/Vol] 33.0 % 32.0 - 36.0 % [facility] MCV (RBC) [Entitic vol] 89.8 fL 80.0 - 98.0 fL [facility] Monocytes (Bld) [#/Vol] 1.1 10*3/uL High 0.0 - 0.8 10*3/uL [facility] Monocytes/100 WBC (Bld) 8.0 % 2.0 - 10.0 % [facility] Neutrophils (Bld) [#/Vol] 8.1 10*3/uL High 1.8 - 7.0 10*3/uL [facility] Neutrophils/100 WBC (Bld) 58.9 % 40.0 - 80.0 % [facility] Nucleated RBC/100 WBC (Bld) [Ratio] 0.0 % [facility] Platelet mean volume (Bld) [Entitic vol] 8.3 fL 7.4 - 12.4 fL [facility] Platelets (Bld) [#/Vol] 329 10*3/uL 140 - 440 10*3/uL [facility] RBC (Bld) [#/Vol] 3.60 10*6/uL Low 3.8 - 5.20 10*6/uL [facility] WBC (Bld) [#/Vol] 13.7 10*3/uL High 3.6 - 10.7 10*3/uL [facility] Laboratory - Chemistry and C hemistry - challengeon 10-09-2022 Glucose [Mass/Vol] 253 mg/dL High 70 - 100 mg/dL [facility] [employer] Glucose [Mass/Vol] 229 mg/dL High 70 - 100 mg/dL [facility] Glucose [Mass/Vol] 248 mg/dL High 70 - 100 mg/dL [facility] Glucose [Mass/Vol] 178 mg/dL High 70 - 100 mg/dL [facility] No Panel Informationon 10-09 Interpretation and review of laboratory results Abnormal [facility] Interpretation and review of laboratory results Abnormal [facility] Interpretation and review of laboratory results Abnormal [facility] Interpretation and review of laboratory results Abnormal [facility] Progress Noteon 10-09-2022 Progress Note Normal [facility] Progress Note Normal [facility] Progress Note Normal [facility] XR FEMUR 2+ VW LEFTon 2022 XR FEMUR 2+ VW LEFT Normal [facility] XR Femur - left 2 Viewson [facility] RADIOLOGY SYSTEM [facility] RADIOLOGY [facility] Radiology Study observation (narrative) [facility] XR Femur - left 2 ViewsOrder ed By: Norman Rodriguez on 10-09-2022 [facility] Work Phone: Basic metabolic 1998 panelon 10-08-2022 Anion gap [Moles/Vol] 11 mmol/L 3 - 13 mmol/L [facility] Calcium [Mass/Vol] 8.9 mg/dL 8.4 - 10. 4 mg/dL [facility] Chloride [Moles/Vol] 102 mmol/L 98 - 10 7 mmol/L [facility] CO2 [Moles/Vol] 23 mmol/L 22 - 30 mmol/L [facility] Creatinine [Mass/Vol] 0.89 mg/dL 0.52 - 1.04 mg/dL [facility] GFR/1.73 sq M.predicted MDRD (S/P/Bld) [Vol rate/Area] 70.7 mL/min/{1.73_m2} - PINF [facility] Glucose [Mass/Vol] 179 mg/dL High 70 - 100 mg/dL [facility] Interpretation and review of laboratory results Abnormal [facility] Potassium [Moles/Vol] 4.9 mmol/L 3.5 - 5.1 mmol/L [facility] Sodium [Moles/Vol] 136 mmol/L 135 - 145 mmol/L [facility] Urea nitrogen [Mass/Vol] 25 mg/dL High 7 - 17 mg/dL [facility] CBC W Auto Differential pane l (Bld)on 10-08-2022 Basophils (Bld) [#/Vol] 0.0 10*3/uL 0.0 - 0.2 10*3/uL [facility] Basophils/100 WBC (Bld) 0.3 % 0.0 - 2.0 % [facility] Eosinophils (Bld) [#/Vol] 0.2 10*3/uL 0.0 - 0.5 10*3/uL [facility] Eosinophils/100 WBC (Bld) 1.3 % 1.0 - 6.0 % [facility] Erythrocyte distribution width (RBC) [Ratio] 14.7 % High 11.5 - 14.5 % [facility] Hematocrit (Bld) [Volume fraction] 35.9 % 35.0 - 47.0 % [facility] Hemoglobin (Bld) [Mass/Vol] 11.7 g/dL 11.7 - 16.0 g/dL [facility] Interpretation and review of laboratory results Abnormal [facility] Lymphocytes (Bld) [#/Vol] 3.7 10*3/uL 1.0 - 4.3 10*3/uL [facility] Lymphocytes/100 WBC (Bld) 29.1 % 20.0 - 40.0 % [facility] MCH (RBC) [Entitic mass] 30.2 pg 26.0 - 34.0 pg [facility] MCHC (RBC) [Mass/Vol] 32.5 % 32.0 - 36.0 % [facility] MCV (RBC) [Entitic vol] 92.8 fL 80.0 - 98.0 fL [facility] Monocytes (Bld) [#/Vol] 0.9 10*3/uL High 0.0 - 0.8 10*3/uL [facility] Monocytes/100 WBC (Bld) 6.7 % 2.0 - 10.0 % [facility] Neutrophils (Bld) [#/Vol] 8.1 10*3/uL High 1.8 - 7.0 10*3/uL [facility] Neutrophils/100 WBC (Bld) 62.6 % 40.0 - 80.0 % [facility] Nucleated RBC/100 WBC (Bld) [Ratio] 0.1 % [facility] Platelet mean volume (Bld) [Entitic vol] 8.0 fL 7.4 - 12.4 fL [facility] Platelets (Bld) [#/Vol] 353 10*3/uL 140 - 440 10*3/uL [facility] RBC (Bld) [#/Vol] 3.87 10*6/uL 3.8 - 5.20 10*6/uL [facility] WBC (Bld) [#/Vol] 12.9 10*3/uL High 3.6 - 10.7 10*3/uL [facility] Laboratory - Chemistry and C hemistry - challengeon 10-08-2022 Glucose [Mass/Vol] 193 mg/dL High 70 - 100 mg/dL [facility] Glucose [Mass/Vol] 241 mg/dL High 70 - 100 mg/dL [facility] Glucose [Mass/Vol] 271 mg/dL High 70 - 100 mg/dL [facility] Glucose [Mass/Vol] 149 mg/dL High 70 - 100 mg/dL [facility] No Panel Informationon 10-08 Interpretation and review of laboratory results Abnormal [facility] Interpretation and review of laboratory results Abnormal [facility] Interpretation and review of laboratory results Abnormal [facility] Interpretation and review of laboratory results Abnormal [facility] Progress Noteon 10-08-2022 Progress Note Normal [facility] Basic metabolic 1998 panelon 10-07-2022 Anion gap [Moles/Vol] 10 mmol/L 3 - 13 mmol/L [facility] Calcium [Mass/Vol] 9.2 mg/dL 8.4 - 10. 4 mg/dL [facility] Chloride [Moles/Vol] 103 mmol/L 98 - 10 7 mmol/L [facility] CO2 [Moles/Vol] 23 mmol/L 22 - 30 mmol/L [facility] Creatinine [Mass/Vol] 0.78 mg/dL 0.52 - 1.04 mg/dL [facility] GFR/1.73 sq M.predicted MDRD (S/P/Bld) [Vol rate/Area] 82.9 mL/min/{1.73_m2} - PINF [facility] Glucose [Mass/Vol] 130 mg/dL High 70 - 100 mg/dL [facility] Interpretation and review of laboratory results Abnormal [facility] Potassium [Moles/Vol] 4.4 mmol/L 3.5 - 5.1 mmol/L [facility] Sodium [Moles/Vol] 136 mmol/L 135 - 145 mmol/L [facility] Urea nitrogen [Mass/Vol] 26 mg/dL High 7 - 17 mg/dL [facility] CBC W Auto Differential pane l (Bld)Ordered By: Viji Steven on 10-07-2022 Basophils (Bld) [#/Vol] 0.0 10*3/uL 0.0 - 0.2 10*3/uL [facility] Basophils/100 WBC (Bld) 0.3 % 0.0 - 2.0 % [facility] Eosinophils (Bld) [#/Vol] 0.2 10*3/uL 0.0 - 0.5 10*3/uL [facility] Eosinophils/100 WBC (Bld) 1.8 % 1.0 - 6.0 % [facility] Erythrocyte distribution width (RBC) [Ratio] 14.5 % 11.5 - 14.5 % [facility] Hematocrit (Bld) [Volume fraction] 36.4 % 35.0 - 47.0 % [facility] Hemoglobin (Bld) [Mass/Vol] 12.0 g/dL 11.7 - 16.0 g/dL [facility] Interpretation and review of laboratory results Abnormal [facility] Lymphocytes (Bld) [#/Vol] 3.5 10*3/uL 1.0 - 4.3 10*3/uL [facility] Lymphocytes/100 WBC (Bld) 31.1 % 20.0 - 40.0 % [facility] MCH (RBC) [Entitic mass] 29.9 pg 26.0 - 34.0 pg [facility] MCHC (RBC) [Mass/Vol] 33.0 % 32.0 - 36.0 % [facility] MCV (RBC) [Entitic vol] 90.4 fL 80.0 - 98.0 fL [facility] Monocytes (Bld) [#/Vol] 0.8 10*3/uL 0.0 - 0.8 10*3/uL [facility] Monocytes/100 WBC (Bld) 7.2 % 2.0 - 10.0 % [facility] Neutrophils (Bld) [#/Vol] 6.7 10*3/uL 1.8 - 7.0 10*3/uL [facility] Neutrophils/100 WBC (Bld) 59.6 % 40.0 - 80.0 % [facility] Nucleated RBC/100 WBC (Bld) [Ratio] 0.0 % [facility] Platelet mean volume (Bld) [Entitic vol] 7.7 fL 7.4 - 12.4 fL [facility] Platelets (Bld) [#/Vol] 382 10*3/uL 140 - 440 10*3/uL [facility] RBC (Bld) [#/Vol] 4.02 10*6/uL 3.8 - 5.20 10*6/uL [facility] WBC (Bld) [#/Vol] 11.3 10*3/uL High 3.6 - 10.7 10*3/uL [facility] Laboratory - Chemistry and C hemistry - challengeon 10-07-2022 Glucose [Mass/Vol] 246 mg/dL High 70 - 100 mg/dL [facility] Glucose [Mass/Vol] 308 mg/dL High 70 - 100 mg/dL [facility] Glucose [Mass/Vol] 136 mg/dL High 70 - 100 mg/dL [facility] Glucose [Mass/Vol] 109 mg/dL High 70 - 100 mg/dL [facility] No Panel Informationon 10-07 Interpretation and review of laboratory results Abnormal [facility] Interpretation and review of laboratory results Abnormal [facility] Interpretation and review of laboratory results Abnormal [facility] Interpretation and review of laboratory results Abnormal [facility] Progress Noteon 10-07-2022 Progress Note Normal [facility] Basic metabolic 1998 panelon 10-06-2022 Anion gap [Moles/Vol] 11 mmol/L 3 - 13 mmol/L [facility] Calcium [Mass/Vol] 9.0 mg/dL 8.4 - 10. 4 mg/dL [facility] Chloride [Moles/Vol] 103 mmol/L 98 - 10 7 mmol/L [facility] CO2 [Moles/Vol] 24 mmol/L 22 - 30 mmol/L [facility] Creatinine [Mass/Vol] 0.72 mg/dL 0.52 - 1.04 mg/dL [facility] GFR/1.73 sq M.predicted MDRD (S/P/Bld) [Vol rate/Area] - PINF [facility] Glucose [Mass/Vol] 114 mg/dL High 70 - 100 mg/dL [facility] Interpretation and review of laboratory results Abnormal [facility] Potassium [Moles/Vol] 4.8 mmol/L 3.5 - 5.1 mmol/L [facility] Sodium [Moles/Vol] 138 mmol/L 135 - 145 mmol/L [facility] Urea nitrogen [Mass/Vol] 27 mg/dL High 7 - 17 mg/dL [facility] CARECOORDon 10-06-2022 CARECOSTITES Normal [facility] CBC W Auto Differential pane l (Bld)Ordered By: Silvia Alba on 10-06-2022 Basophils (Bld) [#/Vol] 0.0 10*3/uL 0.0 - 0.2 10*3/uL [facility] Basophils/100 WBC (Bld) 0.4 % 0.0 - 2.0 % [facility] Eosinophils (Bld) [#/Vol] 0.2 10*3/uL 0.0 - 0.5 10*3/uL [facility] Eosinophils/100 WBC (Bld) 1.3 % 1.0 - 6.0 % [facility] Erythrocyte distribution width (RBC) [Ratio] 14.7 % High 11.5 - 14.5 % [facility] Hematocrit (Bld) [Volume fraction] 36.0 % 35.0 - 47.0 % [facility] Hemoglobin (Bld) [Mass/Vol] 11.5 g/dL Low 11.7 - 16.0 g/dL [facility] Interpretation and review of laboratory results Abnormal [facility] Lymphocytes (Bld) [#/Vol] 4.4 10*3/uL High 1.0 - 4.3 10*3/uL [facility] Lymphocytes/100 WBC (Bld) 36.4 % 20.0 - 40.0 % [facility] MCH (RBC) [Entitic mass] 29.6 pg 26.0 - 34.0 pg [facility] MCHC (RBC) [Mass/Vol] 32.0 % 32.0 - 36.0 % [facility] MCV (RBC) [Entitic vol] 92.5 fL 80.0 - 98.0 fL [facility] Monocytes (Bld) [#/Vol] 0.9 10*3/uL High 0.0 - 0.8 10*3/uL [facility] Monocytes/100 WBC (Bld) 7.3 % 2.0 - 10.0 % [facility] Neutrophils (Bld) [#/Vol] 6.7 10*3/uL 1.8 - 7.0 10*3/uL [facility] Neutrophils/100 WBC (Bld) 54.6 % 40.0 - 80.0 % [facility] Nucleated RBC/100 WBC (Bld) [Ratio] 0.1 % [facility] Platelet mean volume (Bld) [Entitic vol] 8.0 fL 7.4 - 12.4 fL [facility] Platelets (Bld) [#/Vol] 350 10*3/uL 140 - 440 10*3/uL [facility] RBC (Bld) [#/Vol] 3.90 10*6/uL 3.8 - 5.20 10*6/uL [facility] WBC (Bld) [#/Vol] 12.2 10*3/uL High 3.6 - 10.7 10*3/uL [facility] Consulton 10-06-2022 Consult Normal [facility] Laboratory - Chemistry and C hemistry - challengeon 10-06-2022 Glucose [Mass/Vol] 280 mg/dL High 70 - 100 mg/dL [facility] Glucose [Mass/Vol] 205 mg/dL High 70 - 100 mg/dL [facility] Glucose [Mass/Vol] 231 mg/dL High 70 - 100 mg/dL [facility] Glucose [Mass/Vol] 119 mg/dL High 70 - 100 mg/dL [facility] No Panel Informationon 10-06 Interpretation and review of laboratory results Abnormal [facility] Interpretation and review of laboratory results Abnormal [facility] Interpretation and review of laboratory results Abnormal [facility] Interpretation and review of laboratory results Abnormal [facility] Progress Noteon 10-06-2022 Progress Note Normal [facility] Basic metabolic 1998 panelOr dered By: Jennifer Maguire on 10-05-2022 Anion gap [Moles/Vol] 9 mmol/L 3 - 13 mmol/L [facility] Calcium [Mass/Vol] 9.2 mg/dL 8.4 - 10. 4 mg/dL [facility] Chloride [Moles/Vol] 102 mmol/L 98 - 10 7 mmol/L [facility] CO2 [Moles/Vol] 27 mmol/L 22 - 30 mmol/L [facility] Creatinine [Mass/Vol] 0.88 mg/dL 0.52 - 1.04 mg/dL [facility] GFR/1.73 sq M.predicted MDRD (S/P/Bld) [Vol rate/Area] 71.7 mL/min/{1.73_m2} - PINF [facility] Glucose [Mass/Vol] 95 mg/dL 70 - 100 mg/dL [facility] Interpretation and review of laboratory results Abnormal [facility] Potassium [Moles/Vol] 5.1 mmol/L 3.5 - 5.1 mmol/L [facility] Sodium [Moles/Vol] 138 mmol/L 135 - 145 mmol/L [facility] Urea nitrogen [Mass/Vol] 27 mg/dL High 7 - 17 mg/dL [facility] CBC W Auto Differential pane l (Bld)Ordered By: Mikal Novoa on 10-05-2022 Basophils (Bld) [#/Vol] 0.0 10*3/uL 0.0 - 0.2 10*3/uL [facility] Basophils/100 WBC (Bld) 0.3 % 0.0 - 2.0 % [facility] Eosinophils (Bld) [#/Vol] 0.2 10*3/uL 0.0 - 0.5 10*3/uL [facility] Eosinophils/100 WBC (Bld) 1.7 % 1.0 - 6.0 % [facility] Erythrocyte distribution width (RBC) [Ratio] 14.7 % High 11.5 - 14.5 % [facility] Hematocrit (Bld) [Volume fraction] 36.6 % 35.0 - 47.0 % [facility] Hemoglobin (Bld) [Mass/Vol] 12.0 g/dL 11.7 - 16.0 g/dL [facility] Interpretation and review of laboratory results Abnormal [facility] Lymphocytes (Bld) [#/Vol] 3.7 10*3/uL 1.0 - 4.3 10*3/uL [facility] Lymphocytes/100 WBC (Bld) 30.5 % 20.0 - 40.0 % [facility] MCH (RBC) [Entitic mass] 30.1 pg 26.0 - 34.0 pg [facility] MCHC (RBC) [Mass/Vol] 32.7 % 32.0 - 36.0 % [facility] MCV (RBC) [Entitic vol] 92.2 fL 80.0 - 98.0 fL [facility] Monocytes (Bld) [#/Vol] 0.8 10*3/uL 0.0 - 0.8 10*3/uL [facility] Monocytes/100 WBC (Bld) 6.8 % 2.0 - 10.0 % [facility] Neutrophils (Bld) [#/Vol] 7.4 10*3/uL High 1.8 - 7.0 10*3/uL [facility] Neutrophils/100 WBC (Bld) 60.7 % 40.0 - 80.0 % [facility] Nucleated RBC/100 WBC (Bld) [Ratio] 0.0 % [facility] Platelet mean volume (Bld) [Entitic vol] 7.9 fL 7.4 - 12.4 fL [facility] Platelets (Bld) [#/Vol] 354 10*3/uL 140 - 440 10*3/uL [facility] RBC (Bld) [#/Vol] 3.97 10*6/uL 3.8 - 5.20 10*6/uL [facility] WBC (Bld) [#/Vol] 12.1 10*3/uL High 3.6 - 10.7 10*3/uL [facility] Laboratory - Chemistry and C hemistry - challengeon 10-05-2022 Glucose [Mass/Vol] 220 mg/dL High 70 - 100 mg/dL [facility] Glucose [Mass/Vol] 133 mg/dL High 70 - 100 mg/dL [facility] Glucose [Mass/Vol] 146 mg/dL High 70 - 100 mg/dL [facility] Glucose [Mass/Vol] 111 mg/dL High 70 - 100 mg/dL [facility] No Panel Informationon 10-05 Interpretation and review of laboratory results Abnormal [facility] Interpretation and review of laboratory results Abnormal [facility] Interpretation and review of laboratory results Abnormal [facility] Interpretation and review of laboratory results Abnormal [facility] Progress Noteon 10-05-2022 Progress Note Normal [facility] Progress Note Normal [facility] Progress Note Normal [facility] Progress Note Normal [facility] XR HIP 2 OR 3 VW LEFTon 09-13 XR HIP 2 OR 3 VW LEFT Normal [facility] XR Hip - left 3 Viewson 09-13 Left hip (10/03/2022) : Patient is status post short cephalomedullary nailing of the left peritrochanteric hip fracture with hardware failure, specifically the lag screw is migrated proximally and medially out of the nail and is no longer contacting the intramedullary nail portion of the implant. The distal interlocking screw appears to be intact. She has collapse of her fracture site with some possible interval callus formation, and extreme varus. [facility] XR KNEE 1-2 VIEWS LEFTon XR KNEE 1-2 VIEWS LEFT Normal [facility] XR Knee - left 1 or 2 Viewso n 10-05-2022 [facility] RADIOLOGY [facility] Radiology Study observation (narrative) [facility] XR Knee - left 1 or 2 ViewsO rdered By: Natanael Austin on 10-05-2022 [facility] Work Phone: CARECOORDon 10-04-2022 CARECOORD Normal [facility] CBC W Auto Differential pane l (Bld)Ordered By: Marcos Celis on 10-04-2022 Basophils (Bld) [#/Vol] 0.1 10*3/uL 0.0 - 0.2 10*3/uL [facility] Basophils/100 WBC (Bld) 0.6 % 0.0 - 2.0 % [facility] Eosinophils (Bld) [#/Vol] 0.2 10*3/uL 0.0 - 0.5 10*3/uL [facility] Eosinophils/100 WBC (Bld) 1.6 % 1.0 - 6.0 % [facility] Erythrocyte distribution width (RBC) [Ratio] 14.6 % High 11.5 - 14.5 % [facility] Hematocrit (Bld) [Volume fraction] 37.2 % 35.0 - 47.0 % [facility] Hemoglobin (Bld) [Mass/Vol] 12.2 g/dL 11.7 - 16.0 g/dL [facility] Interpretation and review of laboratory results Abnormal [facility] Lymphocytes (Bld) [#/Vol] 3.9 10*3/uL 1.0 - 4.3 10*3/uL [facility] Lymphocytes/100 WBC (Bld) 32.4 % 20.0 - 40.0 % [facility] MCH (RBC) [Entitic mass] 29.9 pg 26.0 - 34.0 pg [facility] MCHC (RBC) [Mass/Vol] 32.9 % 32.0 - 36.0 % [facility] MCV (RBC) [Entitic vol] 90.7 fL 80.0 - 98.0 fL [facility] Monocytes (Bld) [#/Vol] 0.7 10*3/uL 0.0 - 0.8 10*3/uL [facility] Monocytes/100 WBC (Bld) 6.0 % 2.0 - 10.0 % [facility] [facility] (Bld) [#/Vol] 7.1 10*3/uL High 1.8 - 7.0 10*3/uL [facility] Neutrophils/100 WBC (Bld) 59.4 % 40.0 - 80.0 % [facility] Nucleated RBC/100 WBC (Bld) [Ratio] 0.1 % [facility] Platelet mean volume (Bld) [Entitic vol] 8.2 fL 7.4 - 12.4 fL [facility] Platelets (Bld) [#/Vol] 392 10*3/uL 140 - 440 10*3/uL [facility] RBC (Bld) [#/Vol] 4.10 10*6/uL 3.8 - 5.20 10*6/uL [facility] WBC (Bld) [#/Vol] 12.0 10*3/uL High 3.6 - 10.7 10*3/uL [facility] Comprehensive metabolic 1998 panelon 10-04-2022 Albumin [Mass/Vol] 3.8 g/dL 3.5 - 5.0 g/dL [facility] ALP [Catalytic activity/Vol] 134 U/L High 38 - 126 U/L [facility] ALT [Catalytic activity/Vol] 48 U/L High 0 - 34 U/L [facility] Anion gap [Moles/Vol] 12 mmol/L 3 - 13 mmol/L [facility] AST [Catalytic activity/Vol] 59 U/L High 15 - 46 U/L [facility] Bilirubin [Mass/Vol] 0.4 mg/dL 0.2 - 1 .3 mg/dL [facility] Calcium [Mass/Vol] 9.2 mg/dL 8.4 - 10. 4 mg/dL [facility] Chloride [Moles/Vol] 104 mmol/L 98 - 10 7 mmol/L [facility] CO2 [Moles/Vol] 21 mmol/L Low 22 - 30 mmol/L [facility] Creatinine [Mass/Vol] 0.69 mg/dL 0.52 - 1.04 mg/dL [facility] GFR/1.73 sq M.predicted MDRD (S/P/Bld) [Vol rate/Area] - PINF [facility] Glucose [Mass/Vol] 88 mg/dL 70 - 100 mg/dL [facility] Interpretation and review of laboratory results Abnormal [facility] Potassium [Moles/Vol] 4.0 mmol/L 3.5 - 5.1 mmol/L [facility] Protein [Mass/Vol] 7.3 g/dL 6.3 - 8.2 g/dL [facility] Sodium [Moles/Vol] 137 mmol/L 135 - 145 mmol/L [facility] Urea nitrogen [Mass/Vol] 28 mg/dL High 7 - 17 mg/dL [facility] Consulton 10-04-2022 Consult Normal [facility] Consult Normal [facility] ECG 12-LEADon 10-04-2022 ECG 12-LEAD IMPRESSION: Sinus rhythm Compared to ECG 09/16/2016 20:55:58 No significant changes Electronically Signed On 10-04-2022 5:29:00 EDT by Sharita Rutledge Normal [facility] HbA1c (Bld) [Mass fraction]o n 10-04-2022 Average glucose Estimated from glycated hemoglobin (Bld) [Mass/Vol] 105 mg/dL [facility] Laboratory - Chemistry and C hemistry - challengeon 10-04-2022 Glucose [Mass/Vol] 151 mg/dL High 70 - 100 mg/dL [facility] Glucose [Mass/Vol] 109 mg/dL High 70 - 100 mg/dL [facility] Glucose [Mass/Vol] 86 mg/dL 70 - 100 mg/dL [facility] Laboratory - Hematology and Cell countson 10-04-2022 HbA1c (Bld) [Mass fraction] 5.3 % NINF - 5.7 % [facility] [employer] No Panel Informationon 10-04 Interpretation and review of laboratory results Abnormal [facility] [employer] [facility] [employer] Interpretation and review of laboratory results Abnormal [facility] [employer] [facility] Interpretation and review of laboratory results Normal [facility] [employer] [facility] [employer] [facility] CV EPIPHANY [facility] No Panel InformationOrdered By: Sharita Rutledge on 10-04-2022 P [place] 66 degrees [employer] Phone: OK Interval 184 ms [employer] Phone: QRS [place] -10 degrees [employer] Phone: QRSD Interval 99 ms [employer] Phone: QT Interval 383 ms [employer] Phone: QTC Interval 467 ms [employer] Phone: T Wave [place] 52 degrees [employer] Phone: [employer] Phone: Nursing Noteon 10-04-2022 Nursing Note Report called to Bree demarco RN at [facility]. Patient to be transferred via physicians ambulance at 7pm room 127 on H6. Normal [facility] Progress Noteon 10-04-2022 Progress Note Normal [facility] Progress Note Normal [facility] Progress Note Normal [facility] Progress Note Normal [facility] Progress Note Normal [facility] Vital signsOrdered By: Sonny Rutledge on 10-04-2022 Heart rate 89 /min bpm [employer] Phone: XR Chest Single viewon 10-04 [facility] Radiology Study observation (narrative) [facility] [employer] XR Chest Single viewOrdered By: Je Mark on 10-04-2022 [employer] Phone: 25-hydroxyvitamin D3 [Mass/V ol]on 10-03-2022 Interpretation and review of laboratory results Normal [facility] ABO and Rh group Confirm Nom (Bld)on 10-03-2022 ABO group Nom (Bld) O [facility] D Ag Ql (RBC) Positive [facility] Basic metabolic 1998 panelon 10-03-2022 Anion gap [Moles/Vol] 8 mmol/L 3 - 13 mmol/L [facility] Calcium [Mass/Vol] 9.6 mg/dL 8.4 - 10. 4 mg/dL [facility] Chloride [Moles/Vol] 104 mmol/L 98 - 10 7 mmol/L [facility] CO2 [Moles/Vol] 26 mmol/L 22 - 30 mmol/L [facility] Creatinine [Mass/Vol] 0.84 mg/dL 0.52 - 1.04 mg/dL [facility] GFR/1.73 sq M.predicted MDRD (S/P/Bld) [Vol rate/Area] 75.8 mL/min/{1.73_m2} - PINF [facility] Glucose [Mass/Vol] 143 mg/dL High 70 - 100 mg/dL [facility] Potassium [Moles/Vol] 6.0 mmol/L High 3.5 - 5.1 mmol/L [facility] Sodium [Moles/Vol] 138 mmol/L 135 - 145 mmol/L [facility] Urea nitrogen [Mass/Vol] 36 mg/dL High 7 - 17 mg/dL [facility] Blood type and Crossmatch didier cristofer (Bld)on 10-03-2022 ABO group Nom (Bld) O [facility] Blood group antibody screen GEL Ql Negative [facility] D Ag Ql (RBC) Positive [facility] CBC W Auto Differential pane l (Bld)Ordered By: Christina Whitt on 10-03-2022 Basophils (Bld) [#/Vol] 0.1 10*3/uL 0.0 - 0.2 10*3/uL [facility] Basophils/100 WBC (Bld) 0.5 % 0.0 - 2.0 % [facility] Eosinophils (Bld) [#/Vol] 0.2 10*3/uL 0.0 - 0.5 10*3/uL [facility] Eosinophils/100 WBC (Bld) 1.4 % 1.0 - 6.0 % [facility] Erythrocyte distribution width (RBC) [Ratio] 14.7 % High 11.5 - 14.5 % [facility] Hematocrit (Bld) [Volume fraction] 35.7 % 35.0 - 47.0 % [facility] Hemoglobin (Bld) [Mass/Vol] 11.9 g/dL 11.7 - 16.0 g/dL [facility] Interpretation and review of laboratory results Abnormal [facility] Lymphocytes (Bld) [#/Vol] 2.1 10*3/uL 1.0 - 4.3 10*3/uL [facility] Lymphocytes/100 WBC (Bld) 18.8 % Low 20.0 - 40.0 % [facility] MCH (RBC) [Entitic mass] 30.2 pg 26.0 - 34.0 pg [facility] MCHC (RBC) [Mass/Vol] 33.2 % 32.0 - 36.0 % [facility] MCV (RBC) [Entitic vol] 90.7 fL 80.0 - 98.0 fL [facility] Monocytes (Bld) [#/Vol] 0.7 10*3/uL 0.0 - 0.8 10*3/uL [facility] Monocytes/100 WBC (Bld) 6.0 % 2.0 - 10.0 % [facility] Neutrophils (Bld) [#/Vol] 8.1 10*3/uL High 1.8 - 7.0 10*3/uL [facility] Neutrophils/100 WBC (Bld) 73.3 % 40.0 - 80.0 % [facility] Nucleated RBC/100 WBC (Bld) [Ratio] 0.0 % [facility] Platelet mean volume (Bld) [Entitic vol] 8.0 fL 7.4 - 12.4 fL [facility] Platelets (Bld) [#/Vol] 350 10*3/uL 140 - 440 10*3/uL [facility] RBC (Bld) [#/Vol] 3.94 10*6/uL 3.8 - 5.20 10*6/uL [facility] WBC (Bld) [#/Vol] 11.0 10*3/uL High 3.6 - 10.7 10*3/uL [facility] CT HIP LEFT WO IV CONTRASTon 10-03-2022 CT HIP LEFT WO IV CONTRAST Normal [facility] CT Hip - left WO contraston 10-03-2022 [facility] Radiology Study observation (narrative) [facility] CT Hip - left WO contrastOrd ered By: Dereck Gramajo on 10-03-2022 [facility] Work Phone: CT PELVIS ANGIO W AND WO IV CONTRASTon 10-03-2022 CT PELVIS ANGIO W AND WO IV CONTRAST Normal [facility] CTA Pelvis vessels WO and W contrast Aristides 10-03-[address] [facility] Radiology Study observation (narrative) [facility] Consulton 10-03-2022 Consult Normal [facility] ED Provider Noteon ED Provider Note Normal [facility] ESR (Bld) [Velocity]on 10-03 Interpretation and review of laboratory results Abnormal [facility] Laboratory - Chemistry and C hemistry - challengeOrdered By: Adria Quiroga on 10-03-2022 Potassium [Moles/Vol] 4.7 mmol/L 3.5 - 5.1 mmol/L [facility] Laboratory - Chemistry and C hemistry - challengeon 10-03-2022 Glucose [Mass/Vol] 98 mg/dL 70 - 100 mg/dL [facility] 25-hydroxyvitamin D3 [Mass/Vol] 68 ng/mL 30 - 100 ng/mL [facility] CRP [Mass/Vol] 14.9 mg/L High NINF - 10.0 mg/L [facility] Laboratory - Coagulationon 0 10-03-2022 PT Coag (Bld) [Time] 11.0 s 9.0 - 1 2.0 s [facility] Laboratory - Hematology and Cell countson 10-03-2022 ESR (Bld) [Velocity] 46 mm/h High [facility] No Panel Informationon 10-03 Interpretation and review of laboratory results Normal [facility] Interpretation and review of laboratory results Abnormal [facility] Interpretation and review of laboratory results Normal [facility] PT Coag (Bld) [Time]on 10-03 INR Coag (PPP) [Relative time] 1.0 {INR} 0.9 - 1.1 [facility] Potassium [Moles/Vol]Ordered By: Adria Quiroga on 10-03-2022 Interpretation and review of laboratory results Normal [facility] Progress Noteon 10-03-2022 Progress Note Normal [facility] XR Hip - left 3 Viewson 09-13 Radiology Study observation (narrative) [facility] aPTT Coag (Bld) [Time]on aPTT Coag (PPP) [Time] 26.8 s 20.0 - 30.5 s [facility] Absolute lymphocyte countOrd ered By: Christopher Jackson on 09-18-2022 Lymphocytes Auto (Unsp spec) [#/Vol] 3.20 10*3/uL 0.83-4.51 [facility] Basophil percentageOrdered B y: Christopher Jackson on 09-18-2022 Basophils/100 WBC (Bld) 0.2 % 0-1 [facility] Eosinophils/100 WBC (Bld) 2.1 % 0-5 [facility] Neutrophils (Bld) [#/Vol] 5.2 10*3/uL 2.0-7.7 [facility] Neutrophils/100 WBC (Bld) 56.0 % 47-70 [facility] WBC (Bld) [#/Vol] 9.2 10*3/uL 4.4-11.0 [facility] Blood erythrocytes count (nu mber/volume)Ordered By: Christopher Jackson on 09-18-2022 RBC (Bld) [#/Vol] 3.85 10*6/uL 4.2-5.4 [facility] Blood hemoglobin measurement (mass/volume)Ordered By: Christopher Jackson on 09-18-2022 Hemoglobin (Bld) [Mass/Vol] 11.7 g/dL 12.0-15.0 [facility] Blood lymphocytes/100 leukoc ytesOrdered By: Christopher Jackson on 09-18-2022 Lymphocytes/100 WBC (Bld) 34.7 % 19-41 [facility] Blood monocytes/100 leukocyt esOrdered By: Christopher Jackson on 09-18-2022 Monocytes/100 WBC (Bld) 6.8 % 0-10 [facility] Blood platelet mean volumeOr dered By: Christopher Jackson on 09-18-2022 Platelet mean volume (Bld) [Entitic vol] 9.4 fL 6.2-12.0 [facility] Determination of erythrocyte mean corpuscular volume (MCV)Ordered By: Christopher Jackson on 09-18-2022 MCV (RBC) [Entitic vol] 94.5 fL 81-99 [facility] Hematocrit Auto (Bld) [Volum e fraction]Ordered By: Christopher Jackson on 09-18-2022 Hematocrit (Bld) [Volume fraction] 36.4 % 37-47 [facility] INR in Blood by Coagulation assayOrdered By: Christopher Jackson on 09-18-2022 INR Coag (Bld) [Relative time] 1.1 {INR} [facility] Laboratory - CoagulationOrde red By: Christopher Jackson on 09-18-2022 aPTT Coag (Bld) [Time] 30.7 s 24.1-36.2 [facility] PT Coag (PPP) [Time] 14.0 s 11.7-14.9 [facility] Laboratory - Hematology and Cell countsOrdered By: Christopher Jackson on 09-18-2022 Erythrocyte distribution width (RBC) [Entitic vol] 50.8 fL 35.1-43.9 [facility] Erythrocyte distribution width (RBC) [Ratio] 14.6 % 11.6-14.6 [facility] Immature granulocytes/100 WBC (Bld) 0.200 % 0.0-0.9 [facility] Comment on above: IG% - Immature Granu locytes (promyelocytes, myelocytes and metamyelocytes) > 1% indicates that a LEFT SHIFT is Present. MCH (RBC) [Entitic mass] 30.4 pg 27.0-32.0 [facility] Nucleated RBC/100 WBC (Bld) [Ratio] 0 % 0-5 [facility] MCHC Auto (RBC) [Mass/Vol]Or dered By: Christopher Jackson on 09-18-2022 MCHC (RBC) [Mass/Vol] 32.1 g/dL 32-36 [facility] No Panel InformationOrdered By: Regina Oden on 09-18-2022 Miscellaneous Test SEE PATH REPORT [facility] Platelets bldOrdered By: Andrew carson Manuel on 09-18-2022 Platelets (Bld) [#/Vol] 391 10*3/uL 150-450 [facility] Absolute lymphocyte countOrd ered By: Tamiko Quigley on 08-16-2022 Lymphocytes Auto (Unsp spec) [#/Vol] 2.20 10*3/uL 0.83-4.51 [facility] Albumin Elph [Mass/Vol]Order ed By: Tamiko Quigley on 08-16-2022 Albumin [Mass/Vol] 2.6 g/dL 2.9-4.4 [facility] Basophil percentageOrdered B y: Tamiko Quigley on 08-16-2022 Basophils/100 WBC (Bld) 0.1 % 0-1 [facility] Chloride [Moles/Vol] 98 mmol/L 98-107 [facility] Eosinophils/100 WBC (Bld) 1.8 % 0-5 [facility] Glucose [Mass/Vol] 165 mg/dL 74-106 [facility] Comment on above: Fasting Glucose resu lt greater than or equal to 126 mg/dL suggests DIABETES MELLITUS per A.D.A. criteria. Neutrophils (Bld) [#/Vol] 8.0 10*3/uL 2.0-7.7 [facility] Neutrophils/100 WBC (Bld) 69.7 % 47-70 [facility] Potassium [Moles/Vol] 3.3 mmol/L 3.5-5.1 [facility] Sodium [Moles/Vol] 138 mmol/L 136-145 [facility] WBC (Bld) [#/Vol] 11.4 10*3/uL 4.4-11.0 [facility] Blood erythrocytes count (nu mber/volume)Ordered By: Tamiko Quigley on 08-16-2022 RBC (Bld) [#/Vol] 2.76 10*6/uL 4.2-5.4 [facility] Blood hemoglobin measurement (mass/volume)Ordered By: Tamiko Quigley on 08-16-2022 Hemoglobin (Bld) [Mass/Vol] 8.4 g/dL 12.0-15.0 [facility] Blood lymphocytes/100 leukoc ytesOrdered By: Tamiko Quigley on 08-16-2022 Lymphocytes/100 WBC (Bld) 19.3 % 19-41 [facility] Blood monocytes/100 leukocyt esOrdered By: Tamiko Quigley on 08-16-2022 Monocytes/100 WBC (Bld) 7.9 % 0-10 [facility] Blood platelet mean volumeOr dered By: Tamiko Quigley on 08-16-2022 Platelet mean volume (Bld) [Entitic vol] 9.5 fL 6.2-12.0 [facility] Determination of erythrocyte mean corpuscular volume (MCV)Ordered By: Tamiko Quigley on 08-16-2022 MCV (RBC) [Entitic vol] 94.2 fL 81-99 [facility] Glucose Glucometer (BldC) [M ass/Vol]Ordered By: Tamiko Quigley on 08-16-2022 Glucose [Mass/Vol] 144 mg/dL 74-106 [facility] Comment on above: MANAGEMENT OF PATIEN T CARE PER NURSING PROTOCOL Glucose [Mass/Vol] 187 mg/dL 74-106 [facility] Comment on above: MANAGEMENT OF PATIEN T CARE PER NURSING PROTOCOL Hematocrit Auto (Bld) [Volum e fraction]Ordered By: Tamiko Quigley on 08-16-2022 Hematocrit (Bld) [Volume fraction] 26.0 % 37-47 [facility] Interpretation of serum or p lasma protein pattern by immunofixation (narrative resultOrdered By: Tamiko Quigley on 08-16-2022 Protein Fractions Immunofixation Minesh [Interp] See comment [facility] Comment on above: Result: Not Observed Laboratory - Chemistry and C hemistry - challengeOrdered By: Tamiko Quigley on 08-16-2022 CO2 [Moles/Vol] 35.0 mmol/L 21.0-32.0 [facility] Urea nitrogen/Creatinine [Mass ratio] 23.1 mg/mg 10-20 [facility] Laboratory - Hematology and Cell countsOrdered By: Tamiko Quigley on 08-16-2022 Erythrocyte distribution width (RBC) [Entitic vol] 55.5 fL 35.1-43.9 [facility] Erythrocyte distribution width (RBC) [Ratio] 17.2 % 11.6-14.6 [facility] Immature granulocytes/100 WBC (Bld) 1.200 % 0.0-0.9 [facility] Comment on above: IG% - Immature Granu locytes (promyelocytes, myelocytes and metamyelocytes) > 1% indicates that a LEFT SHIFT is Present. MCH (RBC) [Entitic mass] 30.4 pg 27.0-32.0 [facility] Nucleated RBC/100 WBC (Bld) [Ratio] 0 % 0-5 [facility] MCHC Auto (RBC) [Mass/Vol]Or dered By: Tamiko Quigley on 08-16-2022 MCHC (RBC) [Mass/Vol] 32.3 g/dL 32-36 [facility] No Panel InformationOrdered By: Tamiko Quigley on 08-16-2022 Addendum Document Comment . [facility] Comment on above: Protein electrophore sis scan will follow via computer,mail, or channel supervisor delivery.Performed at: [employer] [id number] Director: Avni Valles PhD, Phone: [phone] Estimated Creatinine Clearance Calc 53.44 ml/min [facility] Estimated GFR (MDRD) Amer 83 mL/min >60 [facility] Comment on above: GFR Calc Estimated GFR (MDRD) Non-Af Amer 69 mL/min >60 [facility] Comment on above: Non- GFR Calc Platelets bldOrdered By: Paola Quigley on 08-16-2022 Platelets (Bld) [#/Vol] 312 10*3/uL 150-450 [facility] Serum [id number] measu rement by electrophoresisOrdered By: Tamiko Quigley on 08-16-2022 Alpha 1 globulin Elph [Mass/Vol] 0.4 g/dL 0.0-0.4 [facility] Alpha 1 globulin Elph [Mass/Vol] 0.7 g/dL 0.4-1.0 [facility] Serum globulin measurement ( mass/volume)Ordered By: Tamiko Quigley on 08-16-2022 Globulin (S) [Mass/Vol] 2.6 g/dL 2.2-3.9 [facility] Serum or plasma IgA measurem ent (mass/volume)Ordered By: Tamiko Quigley on 08-16-2022 IgA [Mass/Vol] 303 mg/dL 87-352 [facility] Serum or plasma IgG measurem ent (mass/volume)Ordered By: Tamiko Quigley on 08-16-2022 IgG [Mass/Vol] 770 mg/dL 586-1602 [facility] Serum or plasma IgM measurem ent (mass/volume)Ordered By: Tamiko Quigley on 08-16-2022 IgM [Mass/Vol] 75 mg/dL 26-217 [facility] Serum or plasma beta globuli n measurement by electrophoresis (mass/volume)Ordered By: Tamiko Quigley on 08-16-2022 Beta globulin Elph [Mass/Vol] 0.8 g/dL 0.7-1.3 [facility] Serum or plasma calcium timbo urement (mass/volume)Ordered By: Tamiko Quigley on 08-16-2022 Calcium [Mass/Vol] 8.2 mg/dL 8.5-10.1 [facility] Serum or plasma creatinine m easurement (mass/volume)Ordered By: Tamiko Quigley on 08-16-2022 Creatinine [Mass/Vol] 0.87 mg/dL 0.55-1.02 [facility] Comment on above: The validity of the calculated GFR & GFRAA in patients over 70 years has not been determined. Clinical correlation is essential. Serum or plasma gamma globul in measurement by electrophoresis (mass/volume)Ordered By: Tamiko Quigley on 08-16-2022 Gamma globulin Elph [Mass/Vol] 0.8 g/dL 0.4-1.8 [facility] Serum or plasma immunoelectr ophoresis interpretation (nominal result)Ordered By: Tamiko Quigley on 08-16-2022 Interpretation IEP [Interp] Comment . [facility] Comment on above: No monoclonality det ected. Serum or plasma urea nitroge n measurement (mass/volume)Ordered By: Tamiko Quigley on 08-16-2022 Urea nitrogen [Mass/Vol] 20 mg/dL 7-18 [facility] Thin prep Papanicolaou smear with manual screeningOrdered By: Tamiko Quigley on 08-16-2022 Thin prep Papanicolaou smear with manual screening 5 5-15 [facility] Thin prep Papanicolaou smear with manual screening 1.1 0.7-1.7 [facility] Total protein bloodOrdered B y: Tamiko Quigley on 08-16-2022 Protein [Mass/Vol] 5.2 g/dL 6.0-8.5 [facility] Basophil percentageOrdered B y: Tamiko Quigley on 08-15-2022 Basophil percentage 2.5 mg/dL 2.5-4.9 [facility] Bilirubin [Mass/Vol] 1.60 mg/dL 0.20-1.00 [facility] Comment on above: For patients on eltr ombopag therapy, use of Dimension [place] TBIL is not recommended. Protein [Mass/Vol] 5.6 g/dL 6.4-8.2 [facility] Laboratory - Chemistry and C hemistry - challengeOrdered By: Tamiko Quigley on 08-15-2022 ALP [Catalytic activity/Vol] 75 U/L 45-117 [facility] ALT [Catalytic activity/Vol] 16 U/L 13-56 [facility] Globulin (S) [Mass/Vol] 3.2 g/dL 2.2-4.2 [facility] Magnesium [Mass/Vol] 1.2 mg/dL 1.6-2.6 [facility] Serum or plasma albumin timbo urement (mass/volume)Ordered By: Tamiko Quigley on 08-15-2022 Albumin [Mass/Vol] 2.4 g/dL 3.2-5.0 [facility] Serum or plasma albumin/glob ulin mass ratioOrdered By: Tamiko Quigley on 08-15-2022 Albumin/Globulin [Mass ratio] 0.8 {ratio} 0.9-2.4 [facility] Thin prep Papanicolaou smear with manual screeningOrdered By: Tamiko Quigley on 08-15-2022 Thin prep Papanicolaou smear with manual screening 18 U/L 15-37 [facility] AFB stainOrdered By: John Velez on 08-14-2022 Microscopic observation Acid fast stain Nom (Unsp spec) SEE PATHOLOGY REPORT [facility] Comment on above: Specimen submitted t o Anatomical Pathology Department for testing. Bacteria identified Anaer cx Nom (Unsp spec)Ordered By: John Short on 08-14-2022 Anaerobic Culture Prevotella bivia [facility] Bacterial body fluid culture Ordered By: John Short on 08-14-2022 Bacteria identified Cx Nom (Body fld) Culture exhibits no growth. [facility] Body fluid appearanceOrdered By: John Short on 08-14-2022 Appearance (Body fld) TURBID [facility] Body fluid color determinati onOrdered By: John Short on 08-14-2022 Color (Body fld) RED [facility] Body fluid erythrocytes coun t (number/volume)Ordered By: John Short on 08-14-2022 RBC (Body fld) [#/Vol] 2002 10*3/uL [facility] Body fluid leukocytes count (number/volume)Ordered By: John Short on 08-14-2022 WBC (Body fld) [#/Vol] 4.925 10*3/uL [facility] Body fluid lymphocytes/100 l eukocytesOrdered By: John Short on 08-14-2022 Lymphocytes/100 WBC (Body fld) 10 % [facility] Body fluid macrophage countO rdered By: John Short on 08-14-2022 Macrophages (Body fld) [#/Vol] 9 % [facility] Body fluid segmented neutrop hils count (number/volume)Ordered By: John Short on 08-14-2022 Segmented neutrophils (Body fld) [#/Vol] 57 % [facility] Cytology report of Body flui d Cyto stainOrdered By: John Short on 08-14-2022 Cytology report Cyto stain Doc (Body fld) SEE PATHOLOGY REPORT [facility] Comment on above: Specimen submitted t o Anatomical Pathology Department for testing. Direct bilirubinOrdered By: John Short on 08-14-2022 Bilirubin.direct [Mass/Vol] 0.36 mg/dL 0.00-0.30 [facility] Gram stain for investigation of transfusion reactionOrdered By: John Short on 08-14-2022 Microscopic observation Gram stain Nom (Unsp spec) [facility] Mononuclear cells Auto (Body fld) [#/Vol]Ordered By: John Short on 08-14-2022 Mononuclear cells (Body fld) [#/Vol] 0.989 10*3/uL [facility] No Panel InformationOrdered By: John Short on 08-14-2022 Body Fluid Comment 2 SEE COMMENT [facility] Body Fluid Mononuclear WBCs (%) 20.1 % [facility] Body Fluid Pathologist Comment May follow [facility] Body Fluid Pathologist Comment Reviewed [facility] Comment on above: Previous reported re sult: May follow Edited by: RGOYOMAIRA on 08/18/22:0946Negative for malignant cells.Wilner Dowd M.D. 08/18/22 AMENDED REPORT 08/18/22 0946 PATH COMM/BF previously reported as: May follow Body Fluid Polynuclear WBCs (#) 3.936 10^3/uL [facility] Body Fluid Polynuclear WBCs (%) 79.9 % [facility] No Panel InformationOrdered By: Tamiko Quigley on 08-14-2022 CA 125 Antigen 15.4 U/mL 0.0-38.1 [facility] Comment on above: [employer] El ectrochemiluminescence Immunoassay(ECLIA)Values obtained with different assay methods or kits cannotbe used interchangeably. Results cannot be interpreted asabsolute evidence of the presence or absence of malignantdisease.Performed at: [address] [id number] Director: Avni Valles PhD, Phone: [phone] CA 19-9 Antigen < 2 U/mL 0-35 [facility] Comment on above: [employer] El ectrochemiluminescence Immunoassay(ECLIA)Values obtained with different assay methods or kits cannotbe used interchangeably. Results cannot be interpreted asabsolute evidence of the presence or absence of malignantdisease. Serum or plasma carcinoembry onic antigen measurement (mass/volume)Ordered By: Tamiko Quigley on 08-14-2022 Carcinoembryonic Ag [Mass/Vol] 3.0 ng/mL 0.0-4.7 [facility] Comment on above: Nonsmokers <3.9 Smok ers <5.6[employer] Electrochemiluminescence Immunoassay(ECLIA)Values obtained with different assay methods or kitscannot be used interchangeably. Results cannot beinterpreted as absolute evidence of the presence orabsence of malignant disease. Specimen source identificati on of body fluidOrdered By: John Short on 08-14-2022 Specimen source Nom (Body fld) THORACENTESIS [facility] Thin prep Papanicolaou smear with manual screeningOrdered By: John Short on 08-14-2022 Thin prep Papanicolaou smear with manual screening 24 % [facility] Total cell countOrdered By: John Short on 08-14-2022 Cells counted [employer] (Bld/Tiss) [#] 5.366 10^3/ul 0.000-0.000 [facility] Comment on above: This is the Total Nu mber of Nucleated Cell Types in the Body Fluid. Amorphous sediment detection in urine sediment by light microscopyOrdered By: John Short on 08-13-2022 Amorphous sediment LM Ql (Urine sed) 1+ URATE [facility] Basophil percentageOrdered B y: John Short on 08-13-2022 LDH [Catalytic activity/Vol] 280 U/L 84-246 [facility] Basophil percentage 0-5 SEEN /hpf 0-5 [facility] Bilirubin Test strip Ql (U)O rdered By: John Short on 08-13-2022 Bilirubin Ql (U) Negative Negative [facility] Body fluid lactate dehydroge nase measurement (enzymatic activity/volume) by pyruvateOrdered By: John Short on 08-13-2022 LDH Pyruvate to lactate reaction (Body fld) [Catalytic activity/Vol] 475 Units/l Not Establ. [facility] Body fluid protein measureme nt (mass/volume)Ordered By: John Short on 08-13-2022 Protein (Body fld) [Mass/Vol] 2.6 g/dL Not Establ. [facility] INR in Blood by Coagulation assayOrdered By: John Short on 08-13-2022 INR Coag (Bld) [Relative time] 1.1 {INR} [facility] Ketones Test strip Ql (U)Ord ered By: John Short on 08-13-2022 Ketones Ql (U) Negative Negative [facility] Laboratory - CoagulationOrde red By: John Short on 08-13-2022 aPTT Coag (Bld) [Time] 31.5 s 24.1-36.2 [facility] PT Coag (PPP) [Time] 14.1 s 11.7-14.9 [facility] Mucus LM Ql (Urine sed)Order ed By: John Short on 08-13-2022 Mucus Ql (Urine sed) 0 SEEN /hpf [facility] Nitrite Test strip Ql (U)Ord ered By: John Short on 08-13-2022 Nitrite Ql (U) Negative Negative [facility] No Panel InformationOrdered By: John Short on 08-13-2022 Body Fluid Glucose 149 mg/dL 40-70 [facility] No Panel InformationOrdered By: Kanwal Aguilar on 08-13-2022 Troponin I High Sensitivity 14 pg/mL 3.0-54.0 [facility] Comment on above: Please Note: New Daiana t Units and Gender Specific Reference Ranges. For more information see Policy Stat Procedure [place] High Sensitivity Troponin (TNIH) and attachments. Protein Test strip Ql (U)Ord ered By: John Short on 08-13-2022 Protein Ql (U) 15 mg/dl Negative [facility] Squamous epithelial cells de tection in urine sediment by light microscopyOrdered By: John Short on 08-13-2022 Epithelial cells.squamous LM Ql (Urine sed) 0-5 SEEN /hpf 5-10 [facility] Urine blood detectionOrdered By: John Short on 08-13-2022 RBC Ql (U) Negative Negative [facility] RBC Ql (U) 0 SEEN /hpf 0-5 [facility] Urine clarityOrdered By: Celena Short on 08-13-2022 Clarity (U) Clear Clear [facility] Urine color determinationOrd ered By: John Short on 08-13-2022 Color (U) Yellow Yellow [facility] Urine glucose detectionOrder ed By: John Short on 08-13-2022 Glucose Ql (U) 50 mg/dl Normal [facility] Urine leukocyte esterase det ection by dipstickOrdered By: John Short on 08-13-2022 Leukocyte esterase Test strip Ql (U) 25 /ul Negative [facility] Urine pHOrdered By: John Howard on 08-13-2022 pH (U) 6.0 [pH] 5.0 - 8.0 [facility] Urine sediment bacteria coun t by microscopy (number/high power field)Ordered By: John Short on 08-13-2022 Bacteria LM.HPF (Urine sed) [#/Area] RARE /hpf None Seen [facility] Urine sediment renal epithel ial cell count by microscopy (number/high power field)Ordered By: John Short on 08-13-2022 Epithelial cells.renal LM.HPF (Urine sed) [#/Area] 0 /[HPF] 0-5 [facility] Urine specific gravity measu rementOrdered By: John Short on 08-13-2022 Specific gravity (U) [Rel density] 1.015 1.002-1.030 [facility] Urobilinogen Auto test strip Ql (U)Ordered By: John Short on 08-13-2022 Urobilinogen Ql (U) Normal mg/dl Normal [facility] Basophil percentageOrdered B y: Home Valverde on 08-08-2022 Cholesterol [Mass/Vol] 122 mg/dL <200 [facility] Comment on above: <200 mg/dL Desirable 200-240 mg/dL Borderline >240 mg/dL High Risk Triglyceride [Mass/Vol] 151 mg/dL <199 [facility] Comment on above: The drugs N-Acetylcy steine and Metamizole may falsely depress this assay.Serum Triglycerides Reference Interval Normal <150 mg/dL Borderline high 150 - 199 mg/dL High 200 - 499 mg/dL Very High > or = 500 mg/dL Serum or plasma cholesterol in HDL measurement (mass/volume)Ordered By: Home Valverde on 08-08-2022 Cholesterol in HDL [Mass/Vol] 35 mg/dL >40 [facility] Comment on above: The drugs N-Acetylcy steine and Metamizole may falsely depress this assay. Reference Range HDL <40 mg/dL Low HDL Cholesterol HDL >or= 60 mg/dL High HDL Cholesterol Serum or plasma cholesterol in VLDL measurement (mass/volume)Ordered By: Home Valverde on 08-08-2022 Cholesterol in VLDL [Mass/Vol] 30 mg/dL 5-40 [facility] Serum or plasma low density lipoprotein (LDL) cholesterol measurement (mass/volume)Ordered By: Home Valverde on 08-08-2022 Cholesterol in LDL [Mass/Vol] 57 mg/dL 0-130 [facility] Assessment of wrist artery p atency prior to arterial punctureOrdered By: John Short on 08-07-2022 Arterial patency Wrist artery --pre arterial puncture Positive [facility] Base excessOrdered By: John Short on 08-07-2022 Base excess Calc (BldV) [Moles/Vol] -2 mmol/L -2-2 [facility] Basophil percentageOrdered B y: Home Valverde on 08-07-2022 Lactate [Moles/Vol] 2.1 mmol/L 0.4-2.0 [facility] Comment on above: Critical Result(s) C alled at: 11:00:18 08/07/2022 by: Suma Barnes to [place]. Results read back by same. Ammonia (P) [Moles/Vol] 25.0 umol/L 11-32 [facility] Basophil percentageOrdered B y: John Short on 08-07-2022 Basophil percentage 20.7 mmol/L 22-26 [facility] Basophils/100 WBC (Bld) 89 % 95-99 [facility] CO2 (BldA) [Partial pressure ]Ordered By: John Short on 08-07-2022 CO2 (Bld) [Partial pressure] 23.9 mm[Hg] 35-45 [facility] Culture, urineOrdered By: Angelica Valverde on 08-07-2022 Bacteria identified Cx Nom (U) Culture exhibits no growth. [facility] Laboratory - Microbiology an d Antimicrobial susceptibilityOrdered By: Home Valverde on 08-07-2022 Bacteria identified Cx Nom (Bld) No growth in 5 days. [facility] No Panel InformationOrdered By: John Short on 08-07-2022 Blood Gas Sample Site L Radial [facility] Blood Gas Specimen Type ART [facility] Blood Gas Total CO2 21 mmol/L [facility] Oxygen (BldA) [Partial press ure]Ordered By: John Short on 08-07-2022 Oxygen (Bld) [Partial pressure] 47 mmHG 75-100 [facility] Review by pathologistOrdered By: Dereck Ramirez on 08-07-2022 Pathologist review Minesh (Unsp spec) [Interp] Reviewed [facility] Comment on above: Previous reported re sult: Shellie telma Edited by: RGOOD on 08/07/22:1303Neutrophilic leukocytosis.Normocytic anemia.Clinical correlation necessary.Wilner Dowd M.D. 08/07/22 AMENDED REPORT 08/07/22 1303 PATH REV previously reported as: June telma pH measurementOrdered By: Elliot Short on 08-07-2022 pH (Unsp spec) 7.55 [pH] 7.35-7.45 [facility] Absolute lymphocyte countOrd ered By: Monica Alvarado on 08-05-2022 Lymphocytes Auto (Unsp spec) [#/Vol] 0.97 10*3/uL 0.83-4.51 [facility] Basophil percentageOrdered B y: Monica Alvarado on 08-05-2022 Basophils/100 WBC (Bld) 0.2 % 0-1 [facility] Chloride [Moles/Vol] 110 mmol/L 98-107 [facility] Eosinophils/100 WBC (Bld) 0.2 % 0-5 [facility] Glucose [Mass/Vol] 150 mg/dL 74-106 [facility] Comment on above: Fasting Glucose resu lt greater than or equal to 126 mg/dL suggests DIABETES MELLITUS per A.D.A. criteria. Neutrophils (Bld) [#/Vol] 14.5 10*3/uL 2.0-7.7 [facility] Neutrophils/100 WBC (Bld) 89.8 % 47-70 [facility] Potassium [Moles/Vol] 4.0 mmol/L 3.5-5.1 [facility] Sodium [Moles/Vol] 139 mmol/L 136-145 [facility] WBC (Bld) [#/Vol] 16.1 10*3/uL 4.4-11.0 [facility] Basophil percentageOrdered B y: Dr. Ramirez on 08-05-2022 Bilirubin [Mass/Vol] 0.70 mg/dL 0.20-1.00 [facility] Comment on above: For patients on eltr ombopag therapy, use of Dimension [place] TBIL is not recommended. Protein [Mass/Vol] 6.9 g/dL 6.4-8.2 [facility] Blood erythrocytes count (nu mber/volume)Ordered By: Monica Alvarado on 08-05-2022 RBC (Bld) [#/Vol] 4.16 10*6/uL 4.2-5.4 [facility] Blood hemoglobin measurement (mass/volume)Ordered By: Monica Alvarado on 08-05-2022 Hemoglobin (Bld) [Mass/Vol] 12.3 g/dL 12.0-15.0 [facility] Blood lymphocytes/100 leukoc ytesOrdered By: Monica Alvarado on 08-05-2022 Lymphocytes/100 WBC (Bld) 6.0 % 19-41 [facility] Blood monocytes/100 leukocyt esOrdered By: Monica Alvarado on 08-05-2022 Monocytes/100 WBC (Bld) 3.2 % 0-10 [facility] Blood platelet mean volumeOr dered By: Monica Alvarado on 08-05-2022 Platelet mean volume (Bld) [Entitic vol] 9.9 fL 6.2-12.0 [facility] Determination of erythrocyte mean corpuscular volume (MCV)Ordered By: Monica Alvarado on 08-05-2022 MCV (RBC) [Entitic vol] 93.8 fL 81-99 [facility] Hematocrit Auto (Bld) [Volum e fraction]Ordered By: Monica Alvarado on 08-05-2022 Hematocrit (Bld) [Volume fraction] 39.0 % 37-47 [facility] INR in Blood by Coagulation assayOrdered By: Monica Alvarado on 08-05-2022 INR Coag (Bld) [Relative time] 1.1 {INR} [facility] Laboratory - Chemistry and C hemistry - challengeOrdered By: Dr. Ramirez on 08-05-2022 ALP [Catalytic activity/Vol] 77 U/L 45-117 [facility] ALT [Catalytic activity/Vol] 20 U/L 13-56 [facility] Globulin (S) [Mass/Vol] 3.3 g/dL 2.2-4.2 [facility] Laboratory - Chemistry and C hemistry - challengeOrdered By: Monica Alvarado on 08-05-2022 CO2 [Moles/Vol] 23.0 mmol/L 21.0-32.0 [facility] Urea nitrogen/Creatinine [Mass ratio] 19.4 mg/mg 10-20 [facility] Laboratory - CoagulationOrde red By: Monica Alvarado on 08-05-2022 PT Coag (PPP) [Time] 14.3 s 11.7-14.9 [facility] Laboratory - Hematology and Cell countsOrdered By: Monica Alvarado on 08-05-2022 Erythrocyte distribution width (RBC) [Entitic vol] 42.2 fL 35.1-43.9 [facility] Erythrocyte distribution width (RBC) [Ratio] 12.1 % 11.6-14.6 [facility] Immature granulocytes/100 WBC (Bld) 0.600 % 0.0-0.9 [facility] Comment on above: IG% - Immature Granu locytes (promyelocytes, myelocytes and metamyelocytes) > 1% indicates that a LEFT SHIFT is Present. MCH (RBC) [Entitic mass] 29.6 pg 27.0-32.0 [facility] Nucleated RBC/100 WBC (Bld) [Ratio] 0 % 0-5 [facility] MCHC Auto (RBC) [Mass/Vol]Or dered By: Monica Alvarado on 08-05-2022 MCHC (RBC) [Mass/Vol] 31.5 g/dL 32-36 [facility] No Panel InformationOrdered By: eDreck Ramirez on 08-05-2022 Vitamin D 25-Hydroxy 99.6 ng/mL [facility] Comment on above: Vitamin D 25(OH) Sta tus Range Deficiency <20 ng/mL (50nmol/L) Insufficiency 20 - 30 ng/mL (50 - 75 nmol/L) Sufficiency 30 - 100 ng/mL (75 - 250 nmol/L) Toxicity >100 ng/mL (>250 nmol/L) No Panel InformationOrdered By: Monica Alvarado on 08-05-2022 Estimated Creatinine Clearance Calc 45.14 ml/min [facility] Estimated GFR (MDRD) Amer 68 mL/min >60 [facility] Comment on above: GFR Calc Estimated GFR (MDRD) Non-Af Amer 57 mL/min >60 [facility] Comment on above: Non- GFR Calc Platelets bldOrdered By: Kadie Alvarado on 08-05-2022 Platelets (Bld) [#/Vol] 248 10*3/uL 150-450 [facility] Serum or plasma albumin timbo urement (mass/volume)Ordered By: Dr. Ramirez on 08-05-2022 Albumin [Mass/Vol] 3.6 g/dL 3.2-5.0 [facility] Serum or plasma albumin/glob ulin mass ratioOrdered By: Dr. Ramirez on 08-05-2022 Albumin/Globulin [Mass ratio] 1.1 {ratio} 0.9-2.4 [facility] Serum or plasma calcium timbo urement (mass/volume)Ordered By: Monica Alvarado on 08-05-2022 Calcium [Mass/Vol] 9.1 mg/dL 8.5-10.1 [facility] Serum or plasma creatinine m easurement (mass/volume)Ordered By: Monica Alvarado on 08-05-2022 Creatinine [Mass/Vol] 1.03 mg/dL 0.55-1.02 [facility] Comment on above: The validity of the calculated GFR & GFRAA in patients over 70 years has not been determined. Clinical correlation is essential. Serum or plasma urea nitroge n measurement (mass/volume)Ordered By: Monica Alvarado on 08-05-2022 Urea nitrogen [Mass/Vol] 20 mg/dL 7-18 [facility] Thin prep Papanicolaou smear with manual screeningOrdered By: Dr. Ramirez on 08-05-2022 Thin prep Papanicolaou smear with manual screening 18 U/L 15-37 [facility] Thin prep Papanicolaou smear with manual screeningOrdered By: Monica Alvarado on 08-05-2022 Thin prep Papanicolaou smear with manual screening 6 5-15 [facility] Absolute lymphocyte countOrd ered By: Rudy Boyer on 07-13-2022 Lymphocytes Auto (Unsp spec) [#/Vol] 3.03 10*3/uL 0.83-4.51 [facility] Basophil percentageOrdered B y: Rudy Boyer on 07-13-2022 Basophils/100 WBC (Bld) 0.3 % 0-1 [facility] Bilirubin [Mass/Vol] 0.40 mg/dL 0.20-1.00 [facility] Comment on above: For patients on eltr ombopag therapy, use of Dimension [place] TBIL is not recommended. Chloride [Moles/Vol] 109 mmol/L 98-107 [facility] Cholesterol [Mass/Vol] 122 mg/dL <200 [facility] Comment on above: <200 mg/dL Desirable 200-240 mg/dL Borderline >240 mg/dL High Risk Eosinophils/100 WBC (Bld) 3.0 % 0-5 [facility] Glucose [Mass/Vol] 161 mg/dL 74-106 [facility] Comment on above: Fasting Glucose resu lt greater than or equal to 126 mg/dL suggests DIABETES MELLITUS per A.D.A. criteria. Neutrophils (Bld) [#/Vol] 5.2 10*3/uL 2.0-7.7 [facility] Neutrophils/100 WBC (Bld) 57.5 % 47-70 [facility] Potassium [Moles/Vol] 3.8 mmol/L 3.5-5.1 [facility] Protein [Mass/Vol] 7.3 g/dL 6.4-8.2 [facility] Sodium [Moles/Vol] 141 mmol/L 136-145 [facility] Triglyceride [Mass/Vol] 103 mg/dL <199 [facility] Comment on above: The drugs N-Acetylcy steine and Metamizole may falsely depress this assay.Serum Triglycerides Reference Interval Normal <150 mg/dL Borderline high 150 - 199 mg/dL High 200 - 499 mg/dL Very High > or = 500 mg/dL WBC (Bld) [#/Vol] 9.1 10*3/uL 4.4-11.0 [facility] Blood erythrocytes count (nu mber/volume)Ordered By: Rudy Boyer on 07-13-2022 RBC (Bld) [#/Vol] 4.34 10*6/uL 4.2-5.4 [facility] Blood hemoglobin measurement (mass/volume)Ordered By: Rudy Boyer on 07-13-2022 Hemoglobin (Bld) [Mass/Vol] 13.0 g/dL 12.0-15.0 [facility] Blood lymphocytes/100 leukoc ytesOrdered By: Rudy Boyer on 07-13-2022 Lymphocytes/100 WBC (Bld) 33.3 % 19-41 [facility] Blood monocytes/100 leukocyt esOrdered By: Rudyjody Boyer on 07-13-2022 Monocytes/100 WBC (Bld) 5.6 % 0-10 [facility] Blood platelet mean volumeOr dered By: Rudy Boyer on 07-13-2022 Platelet mean volume (Bld) [Entitic vol] 9.8 fL 6.2-12.0 [facility] Determination of erythrocyte mean corpuscular volume (MCV)Ordered By: Rudy Boyer on 07-13-2022 MCV (RBC) [Entitic vol] 94.0 fL 81-99 [facility] Hematocrit Auto (Bld) [Volum e fraction]Ordered By: Rduyjody Boyer on 07-13-2022 Hematocrit (Bld) [Volume fraction] 40.8 % 37-47 [facility] Laboratory - Chemistry and C hemistry - challengeOrdered By: Rudyjody Boyer on 07-13-2022 ALP [Catalytic activity/Vol] 88 U/L 45-117 [facility] ALT [Catalytic activity/Vol] 21 U/L 13-56 [facility] CO2 [Moles/Vol] 24.0 mmol/L 21.0-32.0 [facility] Globulin (S) [Mass/Vol] 3.6 g/dL 2.2-4.2 [facility] Urea nitrogen/Creatinine [Mass ratio] 24.1 mg/mg 10-20 [facility] Laboratory - Hematology and Cell countsOrdered By: Rudy Boyer on 07-13-2022 Erythrocyte distribution width (RBC) [Entitic vol] 42.7 fL 35.1-43.9 [facility] Erythrocyte distribution width (RBC) [Ratio] 12.3 % 11.6-14.6 [facility] Immature granulocytes/100 WBC (Bld) 0.300 % 0.0-0.9 [facility] Comment on above: IG% - Immature Granu locytes (promyelocytes, myelocytes and metamyelocytes) > 1% indicates that a LEFT SHIFT is Present. MCH (RBC) [Entitic mass] 30.0 pg 27.0-32.0 [facility] Nucleated RBC/100 WBC (Bld) [Ratio] 0 % 0-5 [facility] MCHC Auto (RBC) [Mass/Vol]Or dered By: Rudy Boyer on 07-13-2022 MCHC (RBC) [Mass/Vol] 31.9 g/dL 32-36 [facility] No Panel InformationOrdered By: Rudy Boyer on 07-13-2022 Estimated GFR (MDRD) Amer 62 mL/min >60 [facility] Comment on above: GFR Calc Estimated GFR (MDRD) Non-Af Amer 51 mL/min >60 [facility] Comment on above: Non- GFR Calc Vitamin D 25-Hydroxy 102.8 ng/mL [facility] Comment on above: Vitamin D 25(OH) Sta tus Range Deficiency <20 ng/mL (50nmol/L) Insufficiency 20 - 30 ng/mL (50 - 75 nmol/L) Sufficiency 30 - 100 ng/mL (75 - 250 nmol/L) Toxicity >100 ng/mL (>250 nmol/L)Evidence suggests that patients undergoing fluorescein dye angiography can retain small amounts of fluorescein in the body for up to 48 to 72 hours post-treatment. In the cases of patients with renal insufficiency, retention could be much longer. Samples containing fluorescein can produce falsely elevated values when tested with the [employer] Vitamin D assay. With fluorescein interference, observed Vitamin D values can be as high as >150 ng/mL (>375 nmol/L). Samples should be resubmitted post fluorescein clearance to ensure there is no interference with Vitamin D test results. Platelets bldOrdered By: Will Boyer on 07-13-2022 Platelets (Bld) [#/Vol] 307 10*3/uL 150-450 [facility] Serum or plasma albumin timbo urement (mass/volume)Ordered By: Rudy Boyer on 07-13-2022 Albumin [Mass/Vol] 3.7 g/dL 3.2-5.0 [facility] Serum or plasma albumin/glob ulin mass ratioOrdered By: Rudy Boyer on 07-13-2022 Albumin/Globulin [Mass ratio] 1.0 {ratio} 0.9-2.4 [facility] Serum or plasma calcium timbo urement (mass/volume)Ordered By: Rudy Boyer on 07-13-2022 Calcium [Mass/Vol] 8.7 mg/dL 8.5-10.1 [facility] Serum or plasma cholesterol in HDL measurement (mass/volume)Ordered By: Rudyjody Boyer on 07-13-2022 Cholesterol in HDL [Mass/Vol] 46 mg/dL >40 [facility] Comment on above: The drugs N-Acetylcy steine and Metamizole may falsely depress this assay. Reference Range HDL <40 mg/dL Low HDL Cholesterol HDL >or= 60 mg/dL High HDL Cholesterol Serum or plasma cholesterol in VLDL measurement (mass/volume)Ordered By: Rudy Boyer on 07-13-2022 Cholesterol in VLDL [Mass/Vol] 21 mg/dL 5-40 [facility] Serum or plasma creatinine m easurement (mass/volume)Ordered By: Rudy Boyer on 07-13-2022 Creatinine [Mass/Vol] 1.12 mg/dL 0.55-1.02 [facility] Comment on above: The validity of the calculated GFR & GFRAA in patients over 70 years has not been determined. Clinical correlation is essential. Serum or plasma low density lipoprotein (LDL) cholesterol measurement (mass/volume)Ordered By: Rudy Boyer on 07-13-2022 Cholesterol in LDL [Mass/Vol] 55 mg/dL 0-130 [facility] Serum or plasma urea nitroge n measurement (mass/volume)Ordered By: Rudy Boyer on 07-13-2022 Urea nitrogen [Mass/Vol] 27 mg/dL 7-18 [facility] Thin prep Papanicolaou smear with manual screeningOrdered By: Rudy Boyer on 07-13-2022 Thin prep Papanicolaou smear with manual screening 17 U/L 15-37 [facility] Thin prep Papanicolaou smear with manual screening 8 5-15 [facility] ANES Sen 03-05-2019 ANES POST HNO ID: [id number] Author: Dieter Gross Service: Anesthesiology Author Type: Anesthesiologist Type: Anesthesia PostOp Filed: 04/16/2018 12:30 PM Note Text: POST ANESTHESIA EVALUATION NOTE SERVICE DATE: 04/16/2018 SERVICE TIME: 11 : 1955 Vitals: 04/16/18 0804 04/16/18 0932 04/16/18 1030 Temp: 36 ?C (96.8 ?F) 36.9 ?C (98.4 ?F) 36.5 ?C (97.7 ?F) 04/16/18 1000 04/16/18 1015 04/16/18 1030 04/16/18 1118 BP: (!) 87/41 (!) 89/42 (!) 96/46 99/51 04/16/18 1000 04/16/18 1015 04/16/18 1030 04/16/18 1118 Pulse: 80 75 74 78 04/16/18 1000 04/16/18 1015 04/16/18 1030 04/16/18 1118 Resp: 15 13 16 18 04/16/18 1000 04/16/18 1015 04/16/18 1030 04/16/18 1118 SpO2: 92% 92% 94% 97% Validated Vital Signs: Yes POST ANES STATUS: No apparent anesthetic complications. The patient is appropriately hydrated with stable respiratory and cardiovascular status. Patient has safe and adequate airway control. The patient has appropriate pain relief and no significant post operative nausea or vomiting. The patient has achieved baseline mental status. Further assessment by Anesthesia Service: None Other Remarks: SIGNATURE: Dieter Gross MD PATIENT NAME: Donna Marsh DATE: April 16, 2018 TIME: 12:30 PM PAGER/CONTACT #: [phone] [facility] ANES PREOPon 04-16-2018 ANES PREOP HNO ID: [id number] Author: Dieter Gross Service: Anesthesiology Author Type: Anesthesiologist Type: Anesthesia PreOp Filed: 04/16/2018 7:11 AM Note Text: ANESTHESIOLOGY DAY OF SURGERY NOTE SERVICE DATE: 04/16/2018 SERVICE TIME: 7:10 AM : 1955 Procedure(s) (LRB): KYPHOPLASTY LUMBAR, 1 VERTEBRAL BODY, INCLUSIVE OF ALL IMAGING GUIDANCE (N/A) Surgeon(s): Regina Chopra Estimated body mass index is 31.43 kg/m? as calculated from the following: Height as of 03/07/18: 163.8 cm (5' 4.5). Weight as of 04/10/18: 84.4 kg (186 lb). Most recent hematocrit and potassium results: Hematocrit 40.1 10/02/2017 Potassium 4.6 10/02/2017 ANES DOS/PREOP NOTE: Vitals: There were no vitals filed for this visit. ACTIVE PROBLEM LIST Generalized Anxiety Disorder Major Depressive Disorder, Recurrent Episode, Mild (Hcc) Esophageal Reflux Generalized Osteoarthrosis, Unspecified Site Mitral Valve Disorders(424.0) Lumbago Unspecified Urinary Incontinence Essential Hypertension Depressive Disorder, Not Elsewhere Classified Osteopenia Mixed Hyperlipidemia Type 2 Diabetes Mellitus Without Complication (Hcc) Leukocytosis Right Shoulder Pain Recurrent Incisional Hernia With Incarceration Trigger Index Finger of Right Hand Lesion of Left Ulnar Nerve Bipolar Disorder in Partial Remission (Hcc) Osteopenia Dupuytren's Disease of Palm Trigger Ring Finger of Left Hand Radiculopathy, Lumbar Region Osseous Stenosis of Neural Canal of Lumbar Region Ddd (Degenerative Disc Disease), Lumbar Osteoarthritis of Lumbar Spine Fracture of Multiple Ribs of Right Side Compression of Lumbar Vertebra (Hcc) Spondylosis of Lumbar Region Without Myelopathy Or Radiculopathy Psoriatic Arthropathy (Hcc) Other Fracture of Unspecified Lumbar Vertebra, Initial Encounter for Closed Fracture (Hcc) Takotsubo Cardiomyopathy PAST MEDICAL HISTORY Diagnosis Date - Chronic narcotic use Percocet 4 times daily 2005 until - Depressive disorder, not elsewhere classified whole adult life - Esophageal reflux - Generalized anxiety disorder 2005 Dr. Borges - Generalized osteoarthrosis, unspecified site - Lumbago 06/05/2004 fractured L5; follows with DR. LINDSEY - Morbid obesity (HCC) since quit smoking - Osteopenia - Type II or unspecified type diabetes mellitus without mention of complication, not stated as uncontrolled late 40's - Unspecified essential hypertension late 40's - Unspecified urinary incontinence late 40's urgency AND stress-induced PAST SURGICAL HISTORY Procedure Laterality Date - EXCIS TENDON SHEATH LESN,HAND/FINGR Right 04/16/2015 Right index trigger finger release - INCISE FINGER TENDON SHEATH Right 07/02/2015 Right ring trigger finger release - PAST SURGICAL HISTORY OF - carpal tunnel and trigger finger, right; Dr. Serrano - RELEASE PALM CONTRACT,OPEN,PARTIAL Right 07/02/2015 Dupuytren's contracture excision - REMOVAL OF OVARY(S) 1979 Oophorectomy rt - REMOVAL OF TONSILS,<10 Y/O 1957 Tonsillectomy - REPAIR INCISIONAL HERNIA,REDUCIBLE 1997 Hernia repair, incisional - REPAIR RECURR INCIS HERNIA,REDUC 04/08/12 with removal of old mesh - REVISE ULNAR NERVE AT ELBOW Right 07/02/2015 Right elbow ulnar nerve decompression - TOTAL ABDOM HYSTERECTOMY 1982 and bladder sling; BENIGN (fibroids) FAMILY HISTORY Problem Relation Age of Onset - Diabetes Mother - Hypertension Mother - Heart Mother rhythm (syncope) - Hypertension Father - Diabetes Maternal Grandmother Social History: Social History Tobacco Use - Smoking status: Former Smoker Packs/day: 0.50 Years: 14.00 Pack years: 7.00 Types: Cigarettes Last attempt to quit: 07/06/1987 Years since quittin.8 - Smokeless tobacco: Never Used Substance Use Topics - Alcohol use: No - Drug use: Yes Frequency: 1.0 times per week Types: Marijuana No current facility-administered medications on file prior to encounter. Current Outpatient Medications on File Prior to Encounter: oxyCODONE-acetaminophen (PERCOCET) 5-325 mg tablet Take 1 tablet by mouth twice daily as needed for Pain for up to 30 days.Earliest Fill Date: 03/16/18 oxyCODONE-acetaminophen (PERCOCET) 5-325 mg tablet Take 1 tablet by mouth twice daily as needed for Pain for up to 30 days.Earliest Fill Date: 04/15/18 tiZANidine (ZANAFLEX) 4 mg tablet Take 1 tablet by mouth twice daily as needed. oxyCODONE-acetaminophen (PERCOCET) 5-325 mg tablet One to two tablets per day for severe pain.Earliest Fill Date: 04/15/18 oxyCODONE-acetaminophen (PERCOCET) 5-325 mg tablet One to two tablets per day for severe pain.Earliest Fill Date: 03/16/18 oxyCODONE-acetaminophen (PERCOCET) 5-325 mg tablet One to two tablets per day for severe pain.Earliest Fill Date: 02/14/18 aspirin, enteric coated (ASPIRIN, ENTERIC COATED) 81 mg EC tablet Take 81 mg by mouth once daily. carvedilol (COREG) 3.125 mg tablet Take 3.125 mg by mouth once daily. PROCHLORPERAZINE MALEATE (COMPAZINE ORAL) Take 1 tablet by mouth. MECLIZINE HCL (MECLIZINE ORAL) Take 1 tablet by mouth. acetaminophen (TYLENOL) 325 mg tablet Take 650 mg by mouth every 6 hours as needed. TENS Units logan 1 Device as needed. FLUoxetine HCl (PROZAC) 40 mg capsule Take 40 mg by mouth once daily. FLUoxetine (PROZAC) 20 mg capsule Take 20 mg by mouth once daily. oxybutynin 5 mg tablet Take 2 tablets by mouth twice daily. nystatin ointment APPLY TO AFFECTED AREA TWICE DAILY FOR 1-2WEEKS (Patient taking differently: as needed. APPLY TO AFFECTED AREA TWICE DAILY FOR 1-2WEEKS ) alendronate (FOSAMAX) 70 mg tablet Take 1 tablet by mouth once each week. glipiZIDE 10 mg tablet Take 1 tablet by mouth daily before breakfast. (Patient taking differently: Take 5 mg by mouth twice daily before meals. ) busPIRone (BUSPAR) 15 mg tablet Take 1 tablet by mouth twice daily. simvastatin (ZOCOR) 40 mg tablet Take 1 tablet by mouth daily at bedtime. lisinopril-hydrochlorothi azide 20-12.5 mg per tablet Take 1 tablet by mouth once daily. PRILOSEC OTC 20 mg tablet Take 1 tablet by mouth once daily. No current facility-administered medications for this encounter. Allergies: ALLERGIES Allergen Reactions - Codeine Intolerance - Lipitor [Atorvastat* - Naproxen Intolerance - Vicodin [Hydrocodon* Itching DOS EXAM: Adequate NPO status: Yes Anesthetic risks, benefits, alternatives, personnel and consent discussed: Yes Patient agrees to proceed: Yes Previous Anesthesia: No history of adverse event. Airway Assessment: MP 2; Neck ROM: Full ROM without neurologic symptoms; Airway Evaluation: No significant abnormalities Symptoms of Sleep Apnea: Snoring Dentition: Teeth intact Additional Physical Exam: Lungs: Patient health status unchanged since recent history and physical. See history and physical for exam findings. Cardiac: Patient health status unchanged since recent history and physical. See history and physical for exam findings. Additional Pertinent Findings: N/A Blood Products: Not anticipated for this procedure. Anesthetic Plan: MAC with Sedation Pain Management Plan: Parenteral or Oral ASA Class: 3 Other Medical Problems: None I have interviewed and examined the patient. I have reviewed the medical record and/or the pre-anesthesia evaluation, pertinent labs, and test results. Significant changes in the patient's condition since the History and Physical, not otherwise documented in primary service progress notes: No This contains updated information obtained within 48 hours of Surgery/Procedure. SIGNATURE: Dieter Gross MD PATIENT NAME: Donna Marsh DATE: April 16, 2018 TIME: 7:10 AM CSN: [id number] [facility] HISTORY PHYSICALon HISTORY PHYSICAL HNO ID: [id number] Author: Regina Chopra Service: Pain Management Author Type: Physician Type: HANDP Filed: 04/16/2018 7:36 AM Note Text: HISTORY AND PHYSICAL EXAMINATION PATIENT NAME: Donna Marsh DATE of SERVICE: 04/16/2018 Donna Marsh is here for the pain mangement procedure. The patients presents with persistent pain complaints. Donna Marsh denies any interval changes or new pain complaints or focal neurologic deficits. PAST MEDICAL HISTORY Diagnosis Date - Chronic narcotic use Percocet 4 times daily 2005 until - Depressive disorder, not elsewhere classified whole adult life - Esophageal reflux - Generalized anxiety disorder 2005 Dr. Borges - Generalized osteoarthrosis, unspecified site - Lumbago 06/05/2004 fractured L5; follows with DR. LINDSEY - Morbid obesity (HCC) since quit smoking - Osteopenia - Type II or unspecified type diabetes mellitus without mention of complication, not stated as uncontrolled late s - Unspecified essential hypertension late 40s - Unspecified urinary incontinence late 40s urgency AND stress-induced PAST SURGICAL HISTORY Procedure Laterality Date - EXCIS TENDON SHEATH LESN,HAND/FINGR Right 04/16/2015 Right index trigger finger release - INCISE FINGER TENDON SHEATH Right 07/02/2015 Right ring trigger finger release - PAST SURGICAL HISTORY OF - carpal tunnel and trigger finger, right; Dr. Serrano - RELEASE PALM CONTRACT,OPEN,PARTIAL Right 07/02/2015 Dupuytren's contracture excision - REMOVAL OF OVARY(S) 1979 Oophorectomy rt - REMOVAL OF TONSILS,<10 Y/O 1958 Tonsillectomy - REPAIR INCISIONAL HERNIA,REDUCIBLE 1997 Hernia repair, incisional - REPAIR RECURR INCIS HERNIA,REDUC 04/08/12 with removal of old mesh - REVISE ULNAR NERVE AT ELBOW Right 07/02/2015 Right elbow ulnar nerve decompression - TOTAL ABDOM HYSTERECTOMY 1982 and bladder sling; BENIGN (fibroids) Social History Socioeconomic History Marital status: Spouse name: Maricel Number of children: 2 Years of education: 13 Highest education level: Not on file Social Needs Financial resource strain: Not on file Food insecurity - worry: Not on file Food insecurity - inability: Not on file Transportation needs - medical: Not on file Transportation needs - non-medical: Not on file Occupational History Occupation: DISABLED Tobacco Use Smoking status: Former Smoker Packs/day: 0.50 Years: 14.00 Pack years: 7 Types: Cigarettes Quit date: 07/06/1987 Years since quittin.8 Smokeless tobacco: Never Used Substance and Sexual Activity Alcohol use: No Drug use: Yes Frequency: 1.0 times per week Types: Marijuana Sexual activity: Yes Partners: Male control/protection: Surgical Comment: allen Other Topics Concerns: Not on file Social History Narrative Not on file FAMILY HISTORY Problem Relation Age of Onset - Diabetes Mother - Hypertension Mother - Heart Mother rhythm (syncope) - Hypertension Father - Diabetes Maternal Grandmother ALLERGIES Allergen Reactions - Codeine Intolerance - Lipitor [Atorvastat* - Naproxen Intolerance - Vicodin [Hydrocodon* Itching Current Facility-Administered Medications: lidocaine 10 mg/mL (1 %) 1-2 mg injection (XYLOCAINE) 0.1-0.2 mL INTRADERMAL PRN lactated ringers infusion 5-30 mL/hr INTRAVENOUS CONTINUOUS ceFAZolin iv piggyback 2 g in D5W (iso-osmotic) 100 mL (ANCEF) 2 g INTRAVENOUS Pre-Op Once lactated ringers infusion 50 mL/hr INTRAVENOUS CONTINUOUS Physical Exam: Performed in conjunction with observation. The patient is alert and oriented x3. The patient is in no acute distress. Neck: Supple. The range of motion is intact. Lungs: clear CVR: RRR. Extremities: no reported edema or erythema. Examination indicates no changes Impression: Vertebral compression fracture of L5 with delayed healing. Plan: The informed consent has been obtained. The plan is to proceed with the procedure as planned. SIGNATURE: Regina Chopra MD DATE: April 16, 2018 TIME: 7:35 AM [facility] NURSING PROGon 04-16-2018 Protein mass conc HNO ID: [id number] Author: Gissel ZazuetaRn) HAMILTON Banegas Service: Nursing Author Type: Registered Nurse Type: Nursing Progress Note Filed: 04/16/2018 10:52 AM Note Text: Nursing Progress Note Patient Name: Donna Marsh Patient Location: [place] [facility]/[place] [facility] 1050 Pt received in ASCU on cart from PACU. Snack given. This note was completed by: Gissel Banegas RN [facility] Protein mass conc HNO ID: [id number] Author: Fátima ZazuetaRn) HAMILTON Lopez Service: Nursing Author Type: Registered Nurse Type: Nursing Progress Note Filed: 04/16/2018 10:32 AM Note Text: Dr. Gross made aware of pt blood pressure said pt took her blood pressure meds she is alert on c/o dissiness ok to go to phase 2 96/46. [facility] Protein mass conc HNO ID: [id number] Author: Fátima ZazuetaRn) HAMILTON Lopez Service: Nursing Author Type: Registered Nurse Type: Nursing Progress Note Filed: 04/16/2018 10:27 AM Note Text: Dr. Chopra aware of pt blood pressure 90/47 said to watch a little while longer before going to Phase 2. [facility] Protein mass conc HNO ID: [id number] Author: Amy (Rn) HAMILTON Crump Service: ? Author Type: Registered Nurse Type: Nursing Progress Note Filed: 04/16/2018 8:11 AM Note Text: @ 0653 Pt received to ASCU, ambulatory slowly with a wheeled walker. Pt pleasant AND cooperative with care. @ 0800 Ready for OR - @ bedside. [facility] OPERATIVE NOon 04-16-2018 OPERATIVE NO HNO ID: [id number] Author: Regina Chopra Service: Pain Management Author Type: Physician Type: Operative Report Filed: 04/16/2018 11:16 AM Note Text: PATIENT NAME: Donna Marsh SERVICE DATE: 04/16/2018 PRE-OPERATIVE DIAGNOSIS: L5 compression fracture with delayed healing. Severe osteoporosis POST-OPERATIVE DIAGNOSIS: same PROCEDURE(S): L5 Balloon Kyphoplasty ANESTHESIA: MAC OPERATIVE INDICATIONS: Given Donna Marsh failure of non-operative measures, including medications and activity modification, with imminent concerns of further collapsing the involved fractured veretebrae, the patient was deemed an appropriate candidate for the above mentioned surgical procedure. Risks, benefits, alternatives and possible operative complications were discussed at length and the patient agrees to proceed. PROCEDURE NARRATIVE: The patient was taken to the operating room, MAC anesthesia was initiated by the anesthesia team.. An operative Time-Out was performed and agreed to by the entire operative team. The patient was carefully positioned on the operating table and secured in position. All bony prominences were well padded and the head and neck were held in neutral position. There was no pressure on the chin or nose. The lumbar spine was prepped and draped in the normal sterile fashion. Using biplaner fluoroscopic guidance, the point of entry was identified and marked at the L5 level. The skin was infiltrated with local anesthesia. Once the area was identified using a #15 blade scalpel, a small incision was made on the patients both sides. Using a trocar needle the vertebral body was entered under direct visualization in both the AP and lateral images respectively. Once the position of the trocar needle was confirmed to be optimally positioned in the vertebral body it was replaced by the drill trocar to prepare a space for the balloon. Once the position of the cannula was in the satisfactory position, the balloon was inserted and inflated to approximately 4 mL. The pressure was less than 165 mmHg within the balloon throughout the entire procedure. Inflation was performed under fluoroscopic biplaner visualization. The cement was prepped and mixed. The balloon was then deflated and removed and when the cement was the appropriate viscosity it was injected per the manufacture's guidelines via the cannula into the vertebral body under fluoroscopic guidance. Approximately 3.5ccs of cement were used. The spread and position of the cement under x-ray was in satisfactory position without any evidence of leakage, and the cement was appropriately hardened, the working cannula wer removed. No diagnosis found. Prior to closure, needles and instrument counts were reported as correct. The hemostasis was noted. The wound was then closed with Exofin. A sterile dressing was placed. The patient was gently rolled off of the operating table onto the post surgical bed and taken to the operating room in stable condition. ESTIMATED BLOOD LOSS: 10 cc/ml SPECIMENS: None DRAINS: None COMPLICATIONS: none Start time: 8:48 AM End time: 8:25 AM I was present the entire time and personally performed the procedure. SIGNATURE: Regina Chopra MD DATE: April 16, 2018 TIME: 9:25 AM [facility] PT EDon 04-16-2018 PT ED HNO ID: [id number] Author: Jesús ZazuetaRnLoli Cannon RN Service: Nursing Author Type: Registered Nurse Type: Patient Education Filed: 04/16/2018 12:47 PM Note Text: POST OP LEARNING RESPONSE INSTRUCTION PROVIDED TO: Patient and family member METHOD OF INSTRUCTION: Written instruction - handouts Verbal instruction PATIENT / FAMILY RESPONSE: Verbalizes understanding of: POST-OPERATIVE INSTRUCTIONS-Correct actions to take to reduce postoperative complications FOLLOW-UP PLAN: Patient instructed to call with any further issues SUPPLEMENTAL MATERIAL: None REFERRAL (RECOMMENDATION): None Electronically Signed By: Jesús Cannon RN In Department: [facility] SURGERY [facility] PT ED HNO ID: [id number] Author: Amy Crump RN Service: ? Author Type: Registered Nurse Type: Patient Education Filed: 04/16/2018 8:15 AM Note Text: PROCEDURE/SURGERY: kyphosis READINESS TO LEARN COGNITIVE ABILITY: Alert and oriented MOTIVATION TO LEARN: Eager FAMILY SUPPORT: High - Very involved in pt care PATIENT LEARNS BEST BY: Verbal Instruction FACTORS AFFECTING LEARNING: None PHYSICAL LIMITATIONS AFFECTING LEARNING: None Electronically Signed By: Amy Crump RN In Department: [facility] SURGERY [facility] XR FLUOROSCOPYon 04-16-2018 XR FLUOROSCOPY * * *Final Report* * * DATE OF EXAM: Apr 16 2018 9:30AM [id number] - XR FLUOROSCOPY / PROCEDURE REASON: PAIN - KYPHOPLASTY LUMBAR * * * * Physician Interpretation * * * * INDICATION: PAIN - KYPHOPLASTY LUMBAR TECHNIQUE: Fluoroscopy with 2 views of the L5 vertebra Fluoroscopic Radiation Summary: Plane A, Air Kerma: 125.6 mGy Dose Area Product (DAP): 14311.5 mGy*cmS2 Fluoro time: 4:28 min:sec FINDINGS/ IMPRESSION: Images were obtained after vertebral augmentation of L5. Cement is present within the vertebra. Please refer to the performing LIP's report. Medical Physics Teacher: PSCB Transcribe Date/Time: Apr 16 2018 12:08P Dictated by : AZAEL PARRA MD This examination was interpreted and the report reviewed and electronically signed by: AZAEL PARRA MD on Apr 16 2018 12:08PM EST [id number] [facility] HOSPon 04-10-2018 HOSP Patient:Donna Marsh MRN: Height:5' 4(1.626 m) Weight:186 lb (84.369 kg) Outpatient Medications as of 04/16/18: oxyCODONE-acetaminophen (PERCOCET) 5-325 mg tablet oxyCODONE-acetaminophen (PERCOCET) 5-325 mg tablet tiZANidine (ZANAFLEX) 4 mg tablet oxyCODONE-acetaminophen (PERCOCET) 5-325 mg tablet oxyCODONE-acetaminophen (PERCOCET) 5-325 mg tablet oxyCODONE-acetaminophen (PERCOCET) 5-325 mg tablet aspirin, enteric coated (ASPIRIN, ENTERIC COATED) 81 mg EC tablet carvedilol (COREG) 3.125 mg tablet PROCHLORPERAZINE MALEATE (COMPAZINE ORAL) MECLIZINE HCL (MECLIZINE ORAL) acetaminophen (TYLENOL) 325 mg tablet TENS Units logan FLUoxetine HCl (PROZAC) 40 mg capsule FLUoxetine (PROZAC) 20 mg capsule oxybutynin 5 mg tablet nystatin ointment alendronate (FOSAMAX) 70 mg tablet glipiZIDE 10 mg tablet busPIRone (BUSPAR) 15 mg tablet simvastatin (ZOCOR) 40 mg tablet lisinopril-hydrochlorothi azide 20-12.5 mg per tablet PRILOSEC OTC 20 mg tablet Admission/Clinic Administered Medications as of 04/16/18: lidocaine 10 mg/mL (1 %) 1-2 mg injection (XYLOCAINE) lactated ringers infusion ceFAZolin iv piggyback 2 g in D5W (iso-osmotic) 100 mL (ANCEF) lactated ringers infusion Problem List: Generalized anxiety disorder [F41.1] Major depressive disorder, recurrent episode, 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] Esophageal reflux [K21.9] Generalized osteoarthrosis, unspecified site [M15.9] Mitral valve disorders(424.0) [I05.9] Lumbago [M54.5] Unspecified urinary incontinence [R32] Essential hypertension [I10] Depressive disorder, not elsewhere classified [F32.9] Osteopenia [M89.9, M94.9] Mixed hyperlipidemia [E78.2] Type 2 diabetes mellitus without complication (HCC) [E11.9] Leukocytosis [D72.829] Right shoulder pain [M25.511] Recurrent incisional hernia with incarceration [K43.0] Trigger index finger of right hand [M65.321] Lesion of left ulnar nerve [G56.22] Bipolar disorder in partial remission (HCC) [F31.70] Osteopenia [M85.80] Dupuytren's disease of palm [M72.0] Trigger ring finger of left hand [M65.342] Radiculopathy, lumbar region [M54.16] 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] DDD (degenerative disc disease), lumbar [M51.36] 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] Fracture of multiple ribs of right side [S22.41XA] Compression of lumbar vertebra (HCC) [S32.000A] Spondylosis of lumbar region without myelopathy or radiculopathy [M47.816] Psoriatic arthropathy (HCC) [L40.50] Other fracture of unspecified lumbar vertebra, initial encounter for closed fracture (HCC) [S32.008A] Takotsubo cardiomyopathy [I51.81] Allergies: Codeine Lipitor [Atorvastatin] Naproxen Vicodin [Hydrocodone-Acetaminophe n] Date Verified: 04/16/18 Lab Values No results within the last 30 days for the following basenames: K,HCT Progress Notes ([facility]): Regina Chopra MD 04/10/2018 1:33 PM Signed [facility] NOTE DATE: April 10, 2018 Chief Complaint: chronic lower back and right lower extremity SUBJECTIVE: [facility]. [facility] for a follow up appointment regarding chronic lower back and right lower extremity pain. She states that since the last visit symptoms have been stable. The pain is located in the Back and Right leg area and radiates down the posterior leg. The pain is described as aching and is rated as 8 on a scale of 0-10. The patient Reports morning stiffness, leg pain and leg weakness. Symptoms interfere with physical activity. The pain is exacerbated by standing, forward flexion, lifting, getting up from sitting and walking. The pain is mitigated by medications. She is currently receiving medications through the [facility]. She is not having difficulty with her [facility] medications. The medications are effective. The patient states the last dose of Baclofen, Meloxicam, and Tizanidine was taken at Last night. REVIEW OF SYSTEMS: Constitutional: (-) Fever (-) Night Sweats (-) Weight Gain (-) Weight Loss (-) Fatigue Cardiovascular: (-) Chest Pain (-) Palpitations (-) Lightheadedness (-) Swelling of Ankles (-) Hx Heart Surgery Respiratory: (-) Shortness of Breath (-) Cough (-) Wheezing (-) Snoring Gastrointestinal: (-) Incontinence (-) Abdominal Pain (-) Diarrhea (-) Constipation (-) Nausea/Vomiting (-) Heart Burn Endocrine: (-) Thyroid Disorder (+) Diabetes Hematologic: (-) Prolonged Bleeding (-) Easy Bruising Genitourinary: (-) Incontinence (-) Frequency (-) Urinary Urgency Skin: (-) Rashes (-) Itching (-) Other Lesions Neurologic: (-) Headache (-) Double Vision (-) Confusion (-) Paralysis Psychiatric: (+) Depression (+) Anxiety (-) Delusions (-) Hallucinations (-) Personal History of Alcohol or Substance Abuse (-) Family History of Alcohol or Substance Abuse PAST MEDICAL HISTORY Diagnosis Date - Chronic narcotic use Percocet 4 times daily 2005 until 2-2016 - Depressive disorder, not elsewhere classified whole adult life - Esophageal reflux - Generalized anxiety disorder 2005 Dr. Borges - Generalized osteoarthrosis, unspecified site - Lumbago 06/05/2004 fractured L5; follows with DR. LINDSEY - Morbid obesity (HCC) since quit smoking - Osteopenia - Type II or unspecified type diabetes mellitus without mention of complication, not stated as uncontrolled late - Unspecified essential hypertension late - Unspecified urinary incontinence late urgency AND stress-induced PAST SURGICAL HISTORY Procedure Laterality Date - EXCIS TENDON SHEATH LESN,HAND/FINGR Right 04/16/2015 Right index trigger finger release - INCISE FINGER TENDON SHEATH Right 07/02/2015 Right ring trigger finger release - PAST SURGICAL HISTORY OF - carpal tunnel and trigger finger, right; Dr. Serrano - RELEASE PALM CONTRACT,OPEN,PARTIAL Right 07/02/2015 Dupuytren's contracture excision - REMOVAL OF OVARY(S) 1979 Oophorectomy rt - REMOVAL OF TONSILS,<10 Y/O 1957 Tonsillectomy - REPAIR INCISIONAL HERNIA,REDUCIBLE 1997 Hernia repair, incisional - REPAIR RECURR INCIS HERNIA,REDUC 04/08/12 with removal of old mesh - REVISE ULNAR NERVE AT ELBOW Right 07/02/2015 Right elbow ulnar nerve decompression - TOTAL ABDOM HYSTERECTOMY 1982 and bladder sling; BENIGN (fibroids) ALLERGIES Allergen Reactions - Codeine Intolerance - Lipitor [Atorvastat* - Naproxen Intolerance - Vicodin [Hydrocodon* Itching Current Outpatient Prescriptions: oxyCODONE-acetaminophen (PERCOCET) 5-325 mg tablet Take 1 tablet by mouth twice daily as needed for Pain for up to 30 days.Earliest Fill Date: 03/16/18 [START ON 04/15/2018] oxyCODONE-acetaminophen (PERCOCET) 5-325 mg tablet Take 1 tablet by mouth twice daily as needed for Pain for up to 30 days.Earliest Fill Date: 04/15/18 [START ON 04/15/2018] oxyCODONE-acetaminophen (PERCOCET) 5-325 mg tablet One to two tablets per day for severe pain.Earliest Fill Date: 04/15/18 oxyCODONE-acetaminophen (PERCOCET) 5-325 mg tablet One to two tablets per day for severe pain.Earliest Fill Date: 03/16/18 aspirin, enteric coated (ASPIRIN, ENTERIC COATED) 81 mg EC tablet Take 81 mg by mouth once daily. carvedilol (COREG) 3.125 mg tablet Take 3.125 mg by mouth once daily. PROCHLORPERAZINE MALEATE (COMPAZINE ORAL) Take 1 tablet by mouth. MECLIZINE HCL (MECLIZINE ORAL) Take 1 tablet by mouth. acetaminophen (TYLENOL) 325 mg tablet Take 650 mg by mouth every 6 hours as needed. TENS Units logan 1 Device as needed. FLUoxetine HCl (PROZAC) 40 mg capsule Take 40 mg by mouth once daily. FLUoxetine (PROZAC) 20 mg capsule Take 20 mg by mouth once daily. oxybutynin 5 mg tablet Take 2 tablets by mouth twice daily. nystatin ointment APPLY TO AFFECTED AREA TWICE DAILY FOR 1-2WEEKS (Patient taking differently: as needed. APPLY TO AFFECTED AREA TWICE DAILY FOR 1-2WEEKS ) alendronate (FOSAMAX) 70 mg tablet Take 1 tablet by mouth once each week. glipiZIDE 10 mg tablet Take 1 tablet by mouth daily before breakfast. (Patient taking differently: Take 5 mg by mouth twice daily before meals. ) busPIRone (BUSPAR) 15 mg tablet Take 1 tablet by mouth twice daily. simvastatin (ZOCOR) 40 mg tablet Take 1 tablet by mouth daily at bedtime. lisinopril-hydrochlorothi azide 20-12.5 mg per tablet Take 1 tablet by mouth once daily. PRILOSEC OTC 20 mg tablet Take 1 tablet by mouth once daily. tiZANidine (ZANAFLEX) 4 mg tablet Take 1 tablet by mouth twice daily as needed. oxyCODONE-acetaminophen (PERCOCET) 5-325 mg tablet One to two tablets per day for severe pain.Earliest Fill Date: 02/14/18 No current facility-administered medications for this visit. I have reviewed the nurses notes and I am aware of the family/social history. Since the last evaluation the medical history has not changed. PHYSICAL EXAMINATION: Vitals: Pulse 97 Wt 186 lb (84.4kg) SpO2 95% Performed in conjunction with observation. The patient is alert and oriented x3. The patient is in no acute distress. Station and Gait: flexed posture and antalgic gait leaning forward, shuffling gait and slow pace Lungs: normal respiratory rate and rhythm. Cardiovascular: regular rate. Neck: Supple. The range of motion is intact. Back: Range of motion of the trunk was generally intact. Spine: midline and right paraspinal tenderness at L5 level. Extremities: no reported edema or erythema. Motor: Displays weakness of the bilateral LE general, negative focal deficit ASSESSMENT: Encounter Diagnosis ICD-10-CM 1. Closed compression fracture of L5 lumbar vertebra with delayed healing, subsequent encounter S32.050G KYPHOPLASTY - LUMBAR 2. DDD (degenerative disc disease), lumbar M51.36 KYPHOPLASTY - LUMBAR 3. Osteoporosis of vertebra M81.0 KYPHOPLASTY - LUMBAR PDMP website checked and validated. All prescriptions have been APPROPRIATELY filled. No suspicious activity was identified. 04/10/2018 by Yolanda Ramirez MA Narcotic Agreement reviewed and signed?: N/A on April 10, 2018 Urine Panel: Lab Results Component Value Date Cannabinoid Quant, Urine <16 07/03/2016 Benzoylecognine Quant, Urine <24 07/03/2016 6-Acetylmorphine Quant, Urine <5 07/03/2016 Amphetamine Quant, Urine <5 07/03/2016 Methamphetamine Quant, Urine <8 07/03/2016 Buprenorphine Quant, Urine <20 07/03/2016 Norbuprenorphine Quant, Urine <20 07/03/2016 Methadone Quant, Urine <16 07/03/2016 EDDP Quant, Urine <6 07/03/2016 Tramadol Quant, Urine <25 07/03/2016 Desmethyltramadol Quant, Urine <20 07/03/2016 Fentanyl Quant, Urine <6 07/03/2016 Norfentanyl Quant, Urine <6 07/03/2016 Codeine Quant, Urine <11 07/03/2016 Morphine Quant, Urine <10 07/03/2016 Dihydrocodeine Quant, Urine <5 07/03/2016 Hydrocodone Quant, Urine <8 07/03/2016 Oxycodone Quant, Urine 100 (H) 07/03/2016 Hydromorphone Quant, Urine <5 07/03/2016 Oxymorphone Quant, Urine 10 (H) 07/03/2016 Creatinine,Ur Pain [place] >50 07/03/2016 Urine pH, Pain [place] 4-10 07/03/2016 Specific [place],Ur Pain [place] 1.005-1.020 07/03/2016 Oxidants,Ur Negative 07/03/2016 Specimen Quality, Ur Pain [place] Specimen quality results within acceptable limits. 07/03/2016 The pain panel was N/A PLAN: Prior available imaging studies were reviewed. Findings were discussed. Injection history was reviewed. Medication use and compliance were reviewed. 1. MRI was reviewed. The L2 compression fracture appears to be stable. It was found the patient does have acute compression fracture at L5 with evidence of bone edema. Because of her falls, and intermittent danger of further collapsing or L5 spine, the recommendation is to proceed with L5 kyphoplasty. 2. No medications selected for refill. 3. Interventional procedure options discussed. L5 kyphoplasty under monitored anesthesia care 4. Encouraged regular home exercise program. 5) F/U in 2 months The treatment plan was discussed with the patient during the office visit and they verbalized an understanding of it. Regina Chopra MD cc: Dr. Cici Calderon MD cc: SELF Phone: N/A Fax: Results of consultation to be transmitted via electronic medical record for those providers who practice within [facility] or with access to [employer] via MD Connect, or via letter. Previous Version Progress Notes ([facility]): Yolanda Ramirez MA 04/02/2018 2:15 PM Signed Patient is calling inquiring about MRI results. The report has been printed off and put in the purple folder for Yolande to review with Dr. Chopra. Yolanda Silva 04/03/2018 2:[address] Chopra reviewed MRI - Dr. Chopra would like her to come in - schedule patient to see him in soon in a new patient slot as an established patient - MRI results Patient has multilevel issues, L5-S1 edema from compression fractures however, compression fracture is unable to have Kyphoplasty as patient waited too long to have MRI Called patient to schedule but no answer, left voicemail for patient to call office to schedule appointment. Yolande Silva 04/03/2018 3:45 PM Signed Patient coming in for MRI results - 04/08/18 [facility] MRI LUMBAR SPINE WO IVCONon 03-27-2018 MRI LUMBAR SPINE WO IVCON * * *Final Report* * * DATE OF EXAM: Mar 27 2018 10:28AM M 0303 - MRI LUMBAR SPINE WO IVCON / PROCEDURE REASON: Other fracture of unspecified lumbar vertebra, initial encounter for closed frac * * * * Physician Interpretation * * * * RESULT: EXAMINATION: MRI LUMBAR SPINE WO IVCON CLINICAL HISTORY: Fall one month ago. Suspected compression fracture TECHNIQUE: Routine lumbosacral spine MR protocol without gadolinium. MQ: [id number] COMPARISON: MRI lumbar spine dated 11/09/2015 RESULT: Counting reference: Lumbosacral junction. For the purposes of this report, L4-5 is considered the level of the iliac crest and assume there are 5 lumbar-type vertebrae. Anatomic variant: None. Alignment: Alignment is anatomic. Bone marrow signal/fracture: The L5 vertebral body demonstrates mild interval loss of height when compared to previous exam. There is also diffuse hypointense signal on T1-weighted images with heterogeneous signal on T2-weighted images and hyperintense signal on the STIR images. No evidence for associated retropulsion is noted. Previously identified near complete collapse of the L2 vertebral body is again noted not significantly changed. There is retropulsion of the posterior margin of the L2 vertebral body into the central canal, unchanged. Moderate loss of height involving the L4 vertebral body and superior endplate of the T11 vertebral body are also noted, unchanged. Conus: The conus is within normal limits of signal intensity and morphology. Paraspinal soft tissues: Cystic lesions are noted involving the bilateral kidneys Lower thoracic spine: Visualized lower thoracic canal and foramina are patent. T12-L1: Canal and foramina are patent. L1-L2: Canal and foramina are patent. L2-L3: Retropulsion of the posterior margin of the L2 vertebral body is again noted. Moderate central canal stenosis is again noted not significantly changed. There is mild bilateral neural foraminal narrowing. L3-L4: Facet hypertrophy is noted. Canal and foramina appear patent L4-L5: Disc bulging and facet hypertrophy is noted. Canal and foramina appear patent L5-S1: Facet hypertrophy is noted. There is mild bilateral neural foraminal narrowing. Sacrum and iliac wings: The visualized sacrum and iliac wings are within normal limits. IMPRESSION: Compression fracture involving the L5 vertebral body is new compared to previous exam. Marrow edema suggests relatively recent fracture. There is no significant associated retropulsion into the central canal. Multiple remote compression fractures again noted not significantly changed. Anatomic Thoracic/Lumbar Variant: None. L4-5 is considered the level of the iliac crest and assume there are 5 lumbar-type vertebrae. Transcribed Using Voice Recognition Transcribe Date/Time: Mar 27 2018 10:47A Dictated by: SHARITA BURCH MD This examination was interpreted and the report reviewed and electronically signed by: SHARITA BURCH MD on Mar 27 2018 10:59AM EST [id number] [facility] MRI THORACIC SPINE WO IVCONo n 03-27-2018 MRI THORACIC SPINE WO IVCON * * *Final Report* * * DATE OF EXAM: Mar 27 2018 10:28AM [facility] 0325 - MRI THORACIC SPINE WO IVCON / PROCEDURE REASON: Other fracture of unspecified lumbar [...] central canal stenosis. Neural foramina are patent. IMPRESSION: Thoracic spondylosis. Anatomic Thoracic/Lumbar Variant: None. L4-5 is considered the level of the iliac crest and assume there are 5 lumbar-type vertebrae. Transcribed Using Voice Recognition Transcribe Date/Time: Mar 27 2018 11:11A Dictated by: SHARITA BURCH MD This examination was interpreted and the report reviewed and electronically signed by: SHARITA BURCH MD on Mar 27 2018 11:17AM EST [id number] [facility] NURSING PROGon 03-08-2018 Protein mass conc HNO ID: [id number] Author: Tiana ZazuetaCristela Munson RN Service: Nursing Author Type: Registered Nurse Type: Nursing Progress Note Filed: 03/08/2018 8:08 AM Note Text: PACC Nurse Progress Note History AND Physical: PACC Visit Date: 03/07/18 Original HANDP Date: 03/07/18 ED visit Date: N/A Outside HANDP Scanned Date: N/A Labs Within Last 6 Months: CBC: Date 10/02/17 cbc/diff- wnl BMP/CMP: Date 10/02/17 bmp- BS 135, Bun 31, creatinine 1.2 HBA1C: Date 01/2018 6.8 Imaging Within Last 12 Months: N/A Cardiac Testing: EKG in last 12 Months: Yes: Date: 01/06/18, Comment: NSR, Low voltage QRS scanned in [facility] on 03/07/17 Heart Cath Date: 01/07/18 Comment: in Care Everywhere Last Menstrual Period: LMP Date: N/A Postmenopausal >1yr: Yes, S/P Hysterectomy: Yes BMI Percentile (PEDS): N/A BMI 32.1 Risk Assessment: CONSULTS: Dr Haeys for recent cardiac notes and FU after hospitalization--F/U 01/25/2018 Notes in Care Everywhere Anesthesia Review: 12/2017 hospitalized in [facility] 3-4 days for Takotsubo cardiomyopathy, cath done and no CAD. Following with Dr Hayes, recently feeling OK. Narrative: Takotsubu cardiomyopathy Pre-op Considerations: HX DM- oral med Chart Check: COMPLETED Tiana Munson RN March 08, 2018 8:02 AM Normal [facility] HISTORY PHYSICALon HISTORY PHYSICAL HNO ID: [id number] Author: Jen Bermudez ([place]) Service: (none) Author Type: Physician Ic Engineer Type: HANDP Filed: 03/08/2018 10:07 AM Note Text: HISTORY AND PHYSICAL EXAMINATION SERVICE DATE: 03/07/2018 SERVICE TIME: 3:44 PM PRIMARY CARE PHYSICIAN: Cici Calderon MD REASON FOR VISIT: Donna Marsh is a 62 year old female who is scheduled for L2 kyphoplasty at the request of Dr. Regina Chopra for consultation. My final recommendation will be communicated back to the requesting physician by way of shared medical record or letter. The patient has the following: ACTIVE PROBLEM LIST Generalized Anxiety Disorder Major Depressive Disorder, Recurrent Episode, Mild (Hcc) Esophageal Reflux Generalized Osteoarthrosis, Unspecified Site Mitral Valve Disorders(424.0) Lumbago Unspecified Urinary Incontinence Essential Hypertension Depressive Disorder, Not Elsewhere Classified Osteopenia Mixed Hyperlipidemia Type 2 Diabetes Mellitus Without Complication (Hcc) Leukocytosis Right Shoulder Pain Recurrent Incisional Hernia With Incarceration Trigger Index Finger of Right Hand Lesion of Left Ulnar Nerve Bipolar Disorder in Partial Remission (Hcc) Osteopenia Dupuytren's Disease of Palm Trigger Ring Finger of Left Hand Radiculopathy, Lumbar Region Osseous Stenosis of Neural Canal of Lumbar Region Ddd (Degenerative Disc Disease), Lumbar Osteoarthritis of Lumbar Spine Fracture of Multiple Ribs of Right Side Compression of Lumbar Vertebra (Hcc) Spondylosis of Lumbar Region Without Myelopathy Or Radiculopathy Psoriatic Arthropathy (Hcc) Other Fracture of Unspecified Lumbar Vertebra, Initial Encounter for Closed Fracture ([facility]) Takotsubo Cardiomyopathy Subjective CHIEF COMPLAINT: back pain HPI: 62 yo female with chronic back pain and h/o several falls with fracture of the spine. H/o kyphoplasty about 1 yr ago. The pain is across the low back and hips and down legs R>L. No numbness. Shooting pulsing pain down the leg with sitting. Last fall 02/23/18 when she got the fracture. She is not currently taking any Percocet. In wheelchair today, not using anything at home. PAST MEDICAL HISTORY Diagnosis Date - Chronic narcotic use Percocet 4 times daily 2005 until - Depressive disorder, not elsewhere classified whole adult life - Esophageal reflux - Generalized anxiety disorder 2005 Dr. Borges - Generalized osteoarthrosis, unspecified site - Lumbago 06/05/2004 fractured L5; follows with DR. LINDSEY - Morbid obesity (HCC) since quit smoking - Osteopenia - Type II or unspecified type diabetes mellitus without mention of complication, not stated as uncontrolled late 40's - Unspecified essential hypertension late 40's - Unspecified urinary incontinence late 40's urgency AND stress-induced PAST SURGICAL HISTORY Procedure Laterality Date - EXCIS TENDON SHEATH LESN,HAND/FINGR Right 04/16/2015 Right index trigger finger release - INCISE FINGER TENDON SHEATH Right 07/02/2015 Right ring trigger finger release - PAST SURGICAL HISTORY OF s-' carpal tunnel and trigger finger, right; Dr. Serrano - RELEASE PALM CONTRACT,OPEN,PARTIAL Right 07/02/2015 Dupuytren's contracture excision - REMOVAL OF OVARY(S) 1979 Oophorectomy rt - REMOVAL OF TONSILS,<12 Y/O 1957 Tonsillectomy - REPAIR INCISIONAL HERNIA,REDUCIBLE 1997 Hernia repair, incisional - REPAIR RECURR INCIS HERNIA,REDUC 04/08/12 with removal of old mesh - REVISE ULNAR NERVE AT ELBOW Right 07/02/2015 Right elbow ulnar nerve decompression - TOTAL ABDOM HYSTERECTOMY 1982 and bladder sling; BENIGN (fibroids) FAMILY HISTORY Problem Relation Age of Onset - Diabetes Mother - Hypertension Mother - Heart Mother rhythm (syncope) - Hypertension Father - Diabetes Maternal Grandmother SOCIAL HISTORY: Social History Marital status: Spouse name: Maricel Years of education: 13 Number of children: 2 Occupational History Occupation Employer Comment DISABLED Social History Main Topics Smoking status: Former Smoker Packs/day: 0.50 Years: 14.00 Types: Cigarettes Quit date: 07/06/1987 Smokeless tobacco: Never Used Alcohol use: No Drug use: Yes Frequency: 1.0 time per week Types: Marijuana Sexual activity: Yes Partners with: Male control/protection: Surgical Comment: allen Prior to Admission medications as of 03/07/18 1607 Medication Sig Last Dose Taking tiZANidine (ZANAFLEX) 4 mg tablet Take 1 tablet by mouth twice daily as needed. Yes oxyCODONE-acetaminophen (PERCOCET) 5-325 mg tablet One to two tablets per day for severe pain. Earliest Fill Date: 02/14/18 Yes aspirin, enteric coated (ASPIRIN, ENTERIC COATED) 81 mg EC tablet Take 81 mg by mouth once daily. Yes carvedilol (COREG) 3.125 mg tablet Take 3.125 mg by mouth once daily. Yes PROCHLORPERAZINE MALEATE (COMPAZINE ORAL) Take 1 tablet by mouth. Yes acetaminophen (TYLENOL) 325 mg tablet Take 650 mg by mouth every 6 hours as needed. Yes TENS Units logan 1 Device as needed. Yes FLUoxetine HCl (PROZAC) 40 mg capsule Take 40 mg by mouth once daily. Yes FLUoxetine (PROZAC) 20 mg capsule Take 20 mg by mouth once daily. Yes oxybutynin 5 mg tablet Take 2 tablets by mouth twice daily. Yes alendronate (FOSAMAX) 70 mg tablet Take 1 tablet by mouth once each week. Yes busPIRone (BUSPAR) 15 mg tablet Take 1 tablet by mouth twice daily. Yes simvastatin (ZOCOR) 40 mg tablet Take 1 tablet by mouth daily at bedtime. Yes PRILOSEC OTC 20 mg tablet Take 1 tablet by mouth once daily. Yes oxyCODONE-acetaminophen (PERCOCET) 5-325 mg tablet Take 1 tablet by mouth twice daily as needed for Pain for up to 30 days. Earliest Fill Date: 03/16/18 oxyCODONE-acetaminophen (PERCOCET) 5-325 mg tablet Take 1 tablet by mouth twice daily as needed for Pain for up to 30 days. Earliest Fill Date: 04/15/18 oxyCODONE-acetaminophen (PERCOCET) 5-325 mg tablet One to two tablets per day for severe pain. Earliest Fill Date: 04/15/18 oxyCODONE-acetaminophen (PERCOCET) 5-325 mg tablet One to two tablets per day for severe pain. Earliest Fill Date: 03/16/18 MECLIZINE HCL (MECLIZINE ORAL) Take 1 tablet by mouth. nystatin ointment APPLY TO AFFECTED AREA TWICE DAILY FOR 1-2WEEKS Patient taking differently: as needed. APPLY TO AFFECTED AREA TWICE DAILY FOR 1-2WEEKS glipiZIDE 10 mg tablet Take 1 tablet by mouth daily before breakfast. Patient taking differently: Take 5 mg by mouth twice daily before meals. lisinopril-hydrochlorothi azide 20-12.5 mg per tablet Take 1 tablet by mouth once daily. No medication comments found. ALLERGIES Allergen Reactions - Codeine Intolerance - Lipitor [Atorvastat* - Naproxen Intolerance - Vicodin [Hydrocodon* Itching REVIEW OF SYSTEMS: PAIN ASSESSMENT: General: No weight loss, malaise or fevers. Neuro: Postive for Peripheral neuropathy, Negative for TIA's Headaches Seizures Stroke-residual deficit Respiratory: No history of current cough or dyspnea, or pneumonia in the past 6 weeks. No history of respiratory/pulmonary symptoms or problems. Cardiovascular: Positive for: HLD, Hypertension, Valvular Heart Disease, 01/05/2018 hospitalized in [facility] 3-4 days for Chest pressure and essential NL cath and echo determined Takotsubo cardiomyopathy, EF 40%cath done and no CAD. 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 : N/A, No LMP recorded. Patient has had a hysterectomy. Endocrine: Diabetes Mellitus on oral agent, pt reports last Hgb A1c 6.8 from 01/2018 Hematology: Anemia per labs 12/2017 10.3 Hgb No bleeding or clotting DO Oncology: No history of CA metastasis, chemo within 30 days, or radiotherapy within 90 days. Has not lost 10% of body wt in 6 months. No history of oncological symptoms or problems. Psych: Anxiety, Depression Musculoskeletal: Back pain Skin: abrasion left knee and left forearm Objective PHYSICAL EXAM: VITALS: BP 104/50 Pulse 92 Temp (Src) 98.6 (Tympanic) Resp 16 Ht 5' 4.5 (1.64m) Wt 190 lb (86.2kg) SpO2 94% BMI 32.12 kg/(m2). General: Alert and oriented, in pain at times, in wheelchair, Obese Skin: Normal color, no rash, no lesions. HEENT: EOM, pupils equal, round and reactive. Cardiovascular: Normal S1 AND S2, no rubs, murmurs or gallops. No JVD. Pulse regular. distant HS's Lungs: Normal breath sounds, no wheezes or crackles. Abdomen: Soft, non-tender, no rigidity. Obese Extremities: No deformity, no edema or tenderness, no joint swelling or clubbing. Neurological: Normal cognition and motor skills. in wheelchair Pulses: Carotid and radial pulses normal +2. Diagnostic tests reviewed for today's visit: Lab Value Units Date High Low HB 12.3 g/dL 10/02/2017 15.5 11.5 HCT 40.1 % 10/02/2017 46.0 36.0 WBC 9.17 k/uL 10/02/2017 11.00 3.70 PLT 342 k/uL 10/02/2017 400 150 NA 143 mmol/L 10/02/2017 144 136 K 4.6 mmol/L 10/02/2017 5.1 3.7 GLUC 135 mg/dL 10/02/2017 99 74 BUN 31 mg/dL 10/02/2017 21 7 CREAT 1.21 mg/dL 10/02/2017 0.96 0.58 PTSEC No results within date range. INR No results within date range. APTT No results within date range. ALT No results within date range. AST No results within date range. TBILI No results within date range. TSH 2.810 uU/mL 10/02/2017 5.500 0.400 Lab Value Units Date High Low HCGQT No results within date range. UHCG No results within date range. HCG, BODY* No results within date range. Lab Value Units Date High Low ABORHD No results within date range. ABSCREEN No results within date range. Hemoglobin A1C (%) Date Value 03/11/2012 6.2 11/03/2011 6.9 HBA1C, Marianne (%) Date Value 03/16/2011 5.9 11/14/2010 6.9 06/27/2010 7.7 03/29/2010 9.0 11/25/2009 9.9 Most recent labs 01/05/2018- in epic recent EKG recent Echo and recent Dr Hayes note Assessment ASSESSMENT Diabetes - per Pt Hgb A1c 6.8 (01/2018) Takotsubu cardiomyopathy- EF 40%, cath NL, Hospitalized 01/05/2018- following with Dr Hayes- currently stable HTN - Well controlled Hyperlipidemia Thick Obese neck, MP -3 Chronic back pain and Opioid use- currently off Percocet GERD- on rx Bipolar Disorder- on rx Central obesity- BMI 32 Anemia- last Hgb 10.3 (12/2017) METS: Do moderate work around the house such as vacuuming, sweeping floors, or carrying in groceries (3.50 METs) ASA Class: 3 ANESTHESIA FINDINGS: Intubation History: No history of difficult intubation Significant Anesthesia Considerations: None Airway Exam: General: thick obese neck Mallampati Score is CLASS III ULBT: Class I - Lower incisors can bite the upper lip above the mariluz line Neck: Normal appearance and function, Distance from hyoid to mentum during neck extension is at least 3 finger breaths Mouth: Normal tongue size Dentition: Intact and missing teeth in the back Airway History: No abnormal airway history STOP BANG Score: Criteria: Snoring Tired Hypertension Age over 50 (62 year old) Neck circumference > 15.75 inches Score = 5 PLAN This patient is optimally prepared for surgery. CONSULTS: Patient does not require consults for optimization at this time. The Following Tests/Procedures Have Been Initiated: Labs not indicated per PACC protocol, EKG not indicated per PACC protocol Planned Anesthetic: MAC Instructions Given to Patient: Patient given verbal and written preop instructions and voices comprehension and compliance. SIGNATURE: Jen Bermudez PA-C PATIENT NAME: Donna Marsh DATE: March 07, 2018 TIME: 3:44 PM PAGER/CONTACT #: [facility] Vital Signs Date Time Vital Sign Value Performing Clinician Facility 08-11-2024 10:09-0400 Body mass index (BMI) [Ratio] 26.49 kg/m2 Jeromy Lai MD Work Phone: [facility] 08-11-2024 10:09-0400 Body temperature 97.5 [degF] Jeromy Lai MD Work Phone: [facility] 08-11-2024 10:09-0400 Body weight 65.5 kg Jeromy Lai MD Work Phone: [facility] 08-11-2024 10:09-0400 Diastolic blood pressure 72 mm[Hg] Jeromy Lai MD Work Phone: [facility] 08-11-2024 10:09-0400 Heart rate 70 /min Jeromy Lai MD Work Phone: [facility] 08-11-2024 10:09-0400 Respiratory rate 12 /min Jeromy Lai MD Work Phone: [facility] 08-11-2024 10:09-0400 SaO2% (BldA) [Mass fraction] 95 % Jeromy Lai MD Work Phone: [facility] 08-11-2024 10:09-0400 Systolic blood pressure 118 mm[Hg] Jeromy Lai MD Work Phone: [facility] 06-20-2024 11:33-0400 Body height 157.2 cm Regina Oden DO Work Phone: [facility] 06-20-2024 11:33-0400 Body mass index (BMI) [Ratio] 26.23 kg/m2 Regina Broi DO Work Phone: [facility] 06-20-2024 11:33-0400 Body temperature 97.3 [degF] Regina Masci DO Work Phone: [facility] 06-20-2024 11:33-0400 Body weight 64.86 kg Regina Masci DO Work Phone: [facility] 06-20-2024 11:33-0400 Diastolic blood pressure 75 mm[Hg] Regina Masci DO Work Phone: [facility] 06-20-2024 11:33-0400 Heart rate 77 /min Regina Masci DO Work Phone: [facility] 06-20-2024 11:33-0400 SaO2% (BldA) [Mass fraction] 99 % Regina Broi DO Work Phone: [facility] 06-20-2024 11:33-0400 Systolic blood pressure 129 mm[Hg] Regina Masci DO Work Phone: [facility] 05-17-2024 14:30-0400 Body temperature 97.9 [degF] Rudy Sharla [employer] HEL[employer]C Work Phone: [facility] 05-17-2024 14:30-0400 Diastolic blood pressure 62 mm[Hg] Rudy Sharla [employer] Work Phone: [facility] 05-17-2024 14:30-0400 Heart rate 89 /min Rudy Sharla [employer] Work Phone: [facility] 05-17-2024 14:30-0400 Respiratory rate 16 /min Rudy Sharla [employer] Work Phone: [facility] 05-17-2024 14:30-0400 SaO2% (BldA) [Mass fraction] 95 % Rudy Sharla [employer]C Work Phone: [facility] 05-17-2024 14:30-0400 Systolic blood pressure 115 mm[Hg] Rudy Sharla [employer] Work Phone: [facility] 05-17-2024 04:36-0400 Body mass index (BMI) [Ratio] 27.8 kg/m2 Rudy Sharla [employer] Work Phone: [facility] 05-17-2024 04:36-0400 Body weight 71.3 kg Rudy Sharla [employer] Work Phone: [facility] 05-15-2024 14:22-0400 Body height 160.02 cm Rudy Sharla [employer] Work Phone: [facility] 05-13-2024 22:00-0400 Body temperature 97.2 [degF] Rudy Sharla [employer] Work Phone: [facility] 05-13-2024 22:00-0400 Diastolic blood pressure 114 mm[Hg] Rudy Sharla [employer] Work Phone: [facility] 05-13-2024 22:00-0400 Heart rate 88 /min Rudy Sharla [employer] Work Phone: [facility] 05-13-2024 22:00-0400 Respiratory rate 25 /min Rudy Sharla [employer] Work Phone: [facility] 05-13-2024 22:00-0400 SaO2% (BldA) [Mass fraction] 95 % Rudy Sharla [employer] Work Phone: [facility] 05-13-2024 22:00-0400 Systolic blood pressure 214 mm[Hg] Rudy Sharla [employer] HEL[employer]C Work Phone: [facility] 05-13-2024 15:45-0400 Body height 165.1 cm Rudy Sharla [employer] Work Phone: [facility] 05-13-2024 15:45-0400 Body mass index (BMI) [Ratio] 25.6 kg/m2 Rudy Sharla [employer] Work Phone: [facility] 05-13-2024 15:45-0400 Body weight 69.9 kg Rudy Sharla [employer] HEL[employer]C Work Phone: [facility] 04-24-2024 20:20-0400 Body temperature 98 [degF] Rudy Sharla [employer] HEL[employer]C Work Phone: [facility] 04-24-2024 20:20-0400 Diastolic blood pressure 62 mm[Hg] Rudy Sharla [employer] HEL[employer]C Work Phone: [facility] 04-24-2024 20:20-0400 Heart rate 72 /min Rudy Sharla [employer] Work Phone: [facility] 04-24-2024 20:20-0400 Respiratory rate 16 /min Rudy Sharla [employer] Work Phone: [facility] 04-24-2024 20:20-0400 SaO2% (BldA) [Mass fraction] 97 % Rudy Sharla [employer] Work Phone: [facility] 04-24-2024 20:20-0400 Systolic blood pressure 141 mm[Hg] Rudy Sharla [employer] Work Phone: [facility] 04-24-2024 05:26-0400 Body mass index (BMI) [Ratio] 25 kg/m2 Rudy Sharla [employer] Work Phone: [facility] 04-24-2024 05:26-0400 Body weight 68.1 kg Rudy Sharla [employer] Work Phone: [facility] 04-23-2024 16:05-0400 Body height 165.1 cm Rudy Sharla [employer] HEL[employer] Work Phone: [facility] 04-22-2024 08:30-0400 Inhaled oxygen flow rate 2 L/min Rudy Sharla [employer] Work Phone: [facility] 04-21-2024 06:00-0400 Inhaled oxygen concentration 30 % Rudy Sharla [employer] Work Phone: [facility] 04-20-2024 20:15-0400 Diastolic blood pressure 65 mm[Hg] Rudy Sharla [employer] Work Phone: [facility] 04-20-2024 20:15-0400 Heart rate 100 /min Rudy Sharla [employer] Work Phone: [facility] 04-20-2024 20:15-0400 Respiratory rate 19 /min Rudy Sharla [employer] Work Phone: [facility] 04-20-2024 20:15-0400 Systolic blood pressure 110 mm[Hg] Rudy Sharla [employer] Work Phone: [facility] 04-20-2024 20:00-0400 Body temperature 97.7 [degF] Rudy Sharla [employer] Work Phone: [facility] 04-20-2024 20:00-0400 SaO2% (BldA) [Mass fraction] 97 % Rudy Boyer [employer]C Work Phone: [facility] 04-20-2024 15:06-0400 Body height 165.1 cm Rudy Boyer [employer] Work Phone: [facility] 04-20-2024 15:06-0400 Body mass index (BMI) [Ratio] 24.6 kg/m2 Rudy Adornogar [employer] HEL[employer]C Work Phone: [facility] 04-20-2024 15:06-0400 Body weight 67.1 kg Rudy Adornogar [employer]C Work Phone: [facility] 02-17-2024 15:20-0500 Body temperature 98.6 [degF] Rudy Adornogar [employer] HELPER[employer]C Work Phone: [facility] 02-17-2024 15:20-0500 Diastolic blood pressure 75 mm[Hg] Rudy Adornogar [employer] HELPER[employer]C Work Phone: [facility] 02-17-2024 15:20-0500 Heart rate 81 /min Rudy Sharla [employer] Work Phone: [facility] 02-17-2024 15:20-0500 Respiratory rate 18 /min Rudy Sharla [employer] Work Phone: [facility] 02-17-2024 15:20-0500 SaO2% (BldA) [Mass fraction] 100 % Rudy Sharla [employer] Work Phone: [facility] 02-17-2024 15:20-0500 Systolic blood pressure 135 mm[Hg] Rudy Sharla [employer] Work Phone: [facility] 02-17-2024 03:51-0500 Body mass index (BMI) [Ratio] 25 kg/m2 Rudy Sharla [employer] Work Phone: [facility] 02-17-2024 03:51-0500 Body weight 68.2 kg Rudy Sharla [employer]C Work Phone: [facility] 01-05-2024 09:15-0500 Body temperature 98.1 [degF] Rudy Sharla [employer] Work Phone: [facility] 01-05-2024 09:15-0500 Diastolic blood pressure 70 mm[Hg] Rudy Sharla [employer]C Work Phone: [facility] 01-05-2024 09:15-0500 Heart rate 86 /min Rudy Sharla [employer] Work Phone: [facility] 01-05-2024 09:15-0500 Respiratory rate 18 /min Rudy Sharla [employer] Work Phone: [facility] 01-05-2024 09:15-0500 SaO2% (BldA) [Mass fraction] 100 % Rudy Sharla [employer]C Work Phone: [facility] 01-05-2024 09:15-0500 Systolic blood pressure 132 mm[Hg] Rudy Sharla [employer]C Work Phone: [facility] 01-05-2024 05:55-0500 Body mass index (BMI) [Ratio] 26.9 kg/m2 Rudy Sharla [employer] Work Phone: [facility] 01-05-2024 05:55-0500 Body weight 73.3 kg Rudyjody Boyer [employer] HELPER[employer]C Work Phone: [facility] 01-04-2024 11:04-0500 Inhaled oxygen concentration 2 % Rudy Sharla [employer]C Work Phone: [facility] 01-04-2024 11:04-0500 Inhaled oxygen flow rate 2 L/min Rudy Sharla [employer]C Work Phone: [facility] 04-18-2023 09:24-0500 Body temperature 98.2 [degF] [employer] Rudy Sharla Work Phone: [facility] 04-18-2023 09:24-0500 Diastolic blood pressure 61 mm[Hg] [employer] Rudy Sharla Work Phone: [facility] 04-18-2023 09:24-0500 Heart rate 84 /min [employer] Rudy Sharla Work Phone: [facility] 04-18-2023 09:24-0500 Respiratory rate 16 /min [employer] Rudy Sharla Work Phone: [facility] 04-18-2023 09:24-0500 SaO2% (BldA) [Mass fraction] 94 % [employer] Rudy Sharla Work Phone: [facility] 04-18-2023 09:24-0500 Systolic blood pressure 118 mm[Hg] [employer]C Rudy Sharla Work Phone: [facility] 04-18-2023 05:51-0500 Body mass index (BMI) [Ratio] 27.5 kg/m2 [employer] Rudy Sharla Work Phone: [facility] 04-18-2023 05:51-0500 Body weight 75 kg WALLP[employer] PRINTER HELPER-Madelyn Boyer Work Phone: [facility] 04-17-2023 07:00-0500 Inhaled oxygen flow rate 2 L/min [employer] Rudy Boyer Work Phone: [facility] 04-16-2023 09:23-0500 Body height 165.1 cm W[employer] HELPER-Madelyn Rudy Boyer Work Phone: [facility] 04-14-2023 08:09-0500 Body temperature 97.2 [degF] [facility] 04-14-2023 08:09-0500 Diastolic blood pressure 78 mm[Hg] [facility] 04-14-2023 08:09-0500 Heart rate 96 /min [facility] 04-14-2023 08:09-0500 Respiratory rate 16 /min [facility] 04-14-2023 08:09-0500 SaO2% (BldA) [Mass fraction] 94 % [facility] 04-14-2023 08:09-0500 Systolic blood pressure 119 mm[Hg] [facility] 04-14-2023 08:03-0500 Inhaled oxygen flow rate 2 L/min [facility] 04-14-2023 01:55-0500 Body height 165.1 cm [facility] 04-14-2023 01:55-0500 Body mass index (BMI) [Ratio] 26.6 kg/m2 [facility] 04-14-2023 01:55-0500 Body weight 72.8 kg [facility] 04-10-2023 14:47-0500 Body height 162.6 cm Nicola Adhikari MD Work Phone: [facility] 04-10-2023 14:47-0500 Body mass index (BMI) [Ratio] 30.55 kg/m2 Nicola Adhikari MD Work Phone: [facility] 04-10-2023 14:47-0500 Body weight 80.74 kg Nicola Adhikari MD Work Phone: [facility] 01-01-2023 20:17-0500 Body temperature 98.01 [degF] Esteban Hawley MD Work Phone: [employer] 01-01-2023 20:17-0500 Diastolic blood pressure 63 mm[Hg] Esteban Hawley MD Work Phone: [employer] 01-01-2023 20:17-0500 Heart rate 102 /min Esteban Hawley MD Work Phone: [facility] [employer] 01-01-2023 20:17-0500 Respiratory rate 16 /min Esteban Hawley MD Work Phone: [employer] 01-01-2023 20:17-0500 SaO2% (BldA) [Mass fraction] 97 % Esteban Hawley MD Work Phone: [employer] 01-01-2023 20:17-0500 Systolic blood pressure 110 mm[Hg] Esteban Hawley MD Work Phone: [facility] [employer] 01-01-2023 09:58-0500 Body height 162.6 cm Esteban Hawley MD Work Phone: [employer] 12-26-2022 06:29-0500 Body mass index (BMI) [Ratio] 30.61 kg/m2 Esteban Hawley MD Work Phone: [employer] 12-26-2022 06:29-0500 Body weight 80.9 kg Esteban Hawley MD Work Phone: [facility] [employer] 12-24-2022 04:42-0500 SaO2% (BldA) [Mass fraction] 99.0 % Esteban Hawley MD Work Phone: [employer] 12-23-2022 23:05-0500 SaO2% (BldA) [Mass fraction] 98.8 % Esteban Hawley MD Work Phone: [employer] 12-23-2022 21:33-0500 SaO2% (BldA) [Mass fraction] 98.9 % Esteban Hawley MD Work Phone: [facility] 12-23-2022 19:30-0500 Diastolic blood pressure 71 mm[Hg] [facility] 12-23-2022 19:30-0500 Heart rate 124 /min [facility] 12-23-2022 19:30-0500 Respiratory rate 18 /min [facility] 12-23-2022 19:30-0500 SaO2% (BldA) [Mass fraction] 95 % [facility] 12-23-2022 19:30-0500 Systolic blood pressure 105 mm[Hg] [facility] 12-23-2022 19:15-0500 Inhaled oxygen flow rate 2 L/min [facility] 12-23-2022 19:04-0500 Body temperature 96.8 [degF] [facility] 12-23-2022 14:14-0500 Body height 162.56 cm [facility] 12-23-2022 14:14-0500 Body mass index (BMI) [Ratio] 28.8 kg/m2 [facility] 12-23-2022 14:14-0500 Body weight 76.3 kg [facility] 11-06-2022 13:51-0400 Body height 162.6 cm Phyllis Orozcofiglio PA-C Work Phone: [facility] 11-06-2022 13:51-0400 Body mass index (BMI) [Ratio] 25.75 kg/m2 Phyllis Orozcofiglio PA-C Work Phone: [facility] 11-06-2022 13:51-0400 Body weight 68.04 kg Phyllis Orozcofiglio PA-C Work Phone: [facility] 11-06-2022 13:51-0400 Diastolic blood pressure 74 mm[Hg] Phyllis Orozcofiglio PA-C Work Phone: [facility] 11-06-2022 13:51-0400 Heart rate 80 /min Phyllis Orozcofiglio PA-C Work Phone: [facility] 11-06-2022 13:51-0400 Systolic blood pressure 120 mm[Hg] Phyllis Orozcofiglio PA-C Work Phone: [facility] [employer] 10-15-2022 08:13-0400 Body temperature 96.4 [degF] Vineet Mckeon MD Work Phone: [facility] [employer] 10-15-2022 08:13-0400 Diastolic blood pressure 83 mm[Hg] Vineet Mckeon MD Work Phone: [facility] [employer] 10-15-2022 08:13-0400 Heart rate 89 /min Vineet Mckeon MD Work Phone: [facility] [employer] 10-15-2022 08:13-0400 Respiratory rate 18 /min Vineet Mckeon MD Work Phone: [facility] [employer] 10-15-2022 08:13-0400 SaO2% (BldA) [Mass fraction] 96 % Vineet Mckeon MD Work Phone: [facility] [employer] 10-15-2022 08:13-0400 Systolic blood pressure 108 mm[Hg] Vineet Mckeon MD Work Phone: [facility] [employer] 10-14-2022 05:00-0400 Body mass index (BMI) [Ratio] 25.75 kg/m2 Vineet Mckeon MD Work Phone: [facility] [employer] 10-14-2022 05:00-0400 Body weight 68.04 kg Vineet Mckeon MD Work Phone: [facility] [employer] 10-05-2022 11:31-0400 Body height 162.6 cm Vineet Mckeon MD Work Phone: [facility] [employer] 10-03-2022 14:07-0400 Body height 163.8 cm Cici Martinez MD Work Phone: [facility] [employer] 10-03-2022 14:07-0400 Body mass index (BMI) [Ratio] 24.5 kg/m2 Cici Martinez MD Work Phone: [facility] [employer] 10-03-2022 14:07-0400 Body weight 65.77 kg Cici Martinez MD Work Phone: [facility] [employer] 09-18-2022 11:03-0400 Diastolic blood pressure 60 mm[Hg] Dr. Cici Calderon Work Phone: [facility] 09-18-2022 11:03-0400 Heart rate 91 /min Dr. Cici Calderon Work Phone: [facility] 09-18-2022 11:03-0400 Respiratory rate 16 /min Dr. Cici Calderon Work Phone: [facility] 09-18-2022 11:03-0400 SaO2% (BldA) [Mass fraction] 100 % Dr. Cici Calderon Work Phone: [facility] 09-18-2022 11:03-0400 Systolic blood pressure 107 mm[Hg] Dr. Cici Calderon Work Phone: [facility] 09-18-2022 10:03-0400 Inhaled oxygen flow rate 2 L/min Dr. Cici Calderon Work Phone: [facility] 09-18-2022 08:56-0400 Body height 162.[address] Cici Calderon Work Phone: [facility] 09-18-2022 08:56-0400 Body mass index (BMI) [Ratio] 26.4 kg/m2 Dr. Cici Calderon Work Phone: [facility] 09-18-2022 08:56-0400 Body weight 69.[address] Cici Calderon Work Phone: [facility] 09-18-2022 08:20-0400 Body temperature 98.2 [degF] Dr. Cici Calderon Work Phone: [facility] 08-16-2022 16:14-0400 Body temperature 98.2 [degF] Dr. Cici Calderon Work Phone: [facility] 08-16-2022 16:14-0400 Diastolic blood pressure 62 mm[Hg] Dr. Cici Calderon Work Phone: [facility] 08-16-2022 16:14-0400 Heart rate 87 /min Dr. Cici Calderon Work Phone: [facility] 08-16-2022 16:14-0400 Inhaled oxygen flow rate 3 L/min Dr. Cici Calderon Work Phone: [facility] 08-16-2022 16:14-0400 Respiratory rate 18 /min Dr. Cici Calderon Work Phone: [facility] 08-16-2022 16:14-0400 SaO2% (BldA) [Mass fraction] 96 % Dr. Cici Calderon Work Phone: [facility] 08-16-2022 16:14-0400 Systolic blood pressure 134 mm[Hg] Dr. Cici Calderon Work Phone: [facility] 08-14-2022 15:23-0400 Body height 162.[address] Cici Calderon Work Phone: [phone] [place] [address] 08-14-2022 15:23-0400 Body weight 79.[address] Cici Calderon Work Phone: [facility] 08-09-2022 17:00-0400 Body mass index (BMI) [Ratio] 30.1 kg/m2 Dr. Cici Calderon Work Phone: [facility] 08-05-2022 21:26-0400 Body temperature 98.5 [degF] Dr. Cici Calderon Work Phone: [facility] 08-05-2022 21:26-0400 Diastolic blood pressure 85 mm[Hg] Dr. Cici Calderon Work Phone: [facility] 08-05-2022 21:26-0400 Heart rate 94 /min Dr. Cici Calderon Work Phone: [facility] 08-05-2022 21:26-0400 Respiratory rate 18 /min Dr. Cici Calderon Work Phone: [facility] 08-05-2022 21:26-0400 SaO2% (BldA) [Mass fraction] 94 % Dr. Cici Calderon Work Phone: [facility] 08-05-2022 21:26-0400 Systolic blood pressure 182 mm[Hg] Dr. Cici Calderon Work Phone: [facility] 08-05-2022 17:54-0400 Body height 162.[address] Cici Calderon Work Phone: [facility] 08-05-2022 17:54-0400 Body mass index (BMI) [Ratio] 33.5 kg/m2 Dr. Cici Calderon Work Phone: [facility] 08-05-2022 17:54-0400 Body weight 88.[address] Cici Calderon Work Phone: [facility] 07-06-2022 10:37-0400 Body height 163.[address] Cici Calderon Work Phone: [facility] 07-06-2022 10:37-0400 Body mass index (BMI) [Ratio] 29.6 kg/m2 Dr. Cici Calderon Work Phone: [facility] 07-06-2022 10:37-0400 Body weight 79.[address] Cici Calderon Work Phone: [facility] Encounters Encounter Date Encounter Type Care Provider Facility Start: 08-11-2024 End: 08-11-2024 Patient encounter procedure Jeromy Lai MD Work Phone: Endocrinology Comment on above: Age-related osteopor osis without current pathological fracture (Primary Dx); Osteoporosis without current pathological fracture, unspecified osteoporosis type Start: 08-11-2024 End: 08-11-2024 ambulatory [facility] Facility:[facility] Start: 06-20-2024 End: 06-20-2024 ambulatory [facility] Facility:[facility] Start: 06-20-2024 End: 06-20-2024 Patient encounter procedure Regina Oden DO Work Phone: Hematology/Oncology Start: 06-20-2024 End: 06-20-2024 ambulatory Regina Oden DO Work Phone: Hematology/Oncology Comment on above: Lytic lesion of bone on x-ray (Primary Dx); Osteoporosis without current pathological fracture, unspecified osteoporosis type Start: 05-29-2024 End: 06-10-2024 Telephone encounter Regina Oden DO Work Phone: Hematology/Oncology Comment on above: Patient Update Start: 05-29-2024 End: 05-29-2024 ambulatory [facility] Facility:[facility] Start: 05-19-2024 End: 05-19-2024 Emergency department patient visit [facility] Facility:[facility] Start: 05-17-2024 End: 05-18-2024 Emergency department patient visit [facility] Facility:[facility] Start: 05-17-2024 Dr. Anuja santoro MD -[facility] Work Phone: Start: 05-16-2024 Dr. Anuja santoro MD -[facility] Work Phone: Start: 05-15-2024 Dr. Anuja santoro MD -[facility] Work Phone: Start: 05-14-2024 ambulatory [facility] Start: 05-14-2024 End: 05-17-2024 Evaluation and management of inpatient [facility] [employer] Work Phone: [facility] Work Phone: Start: 05-14-2024 End: 05-17-2024 Dr. Anuja Murcia MD -Progressive Care Unit Work Phone: Start: 05-14-2024 Dr. Anuja santoro MD -[facility] Work Phone: Start: 05-13-2024 ambulatory [facility] Facility:[facility] Start: 05-13-2024 observation encounter Rudy abdalla [employer]PER-C Work Phone: [facility] Work Phone: Start: 05-13-2024 Dr. Kanwal segal MD -Progressive Care Unit Work Phone: Start: 04-24-2024 Dr. John Short [facility] Work Phone: Start: 04-23-2024 Dr. John Short [facility] Work Phone: Start: 04-22-2024 Dr. John Short [facility] Work Phone: Start: 04-21-2024 Dr. John Short [facility] Work Phone: Start: 04-21-2024 ambulatory Tiffanie Jimenez Facility:[facility] Start: 04-21-2024 Dr. Tiffanie Jimenez MD -[facility] Start: 04-21-2024 Dr. Atul Quezada DO [facility] Start: 04-20-2024 Evaluation and manag ement of inpatient Rudy Boyer [employer]C Work Phone: [facility] Work Phone: Start: 04-20-2024 Dr. Kanwal segal MD -Intensive Care Unit Work Phone: Start: 04-20-2024 End: 04-24-2024 Evaluation and management of inpatient Rudy Sharla [employer]C Work Phone: [facility] Work Phone: Start: 04-20-2024 [facility] Start: 04-20-2024 End: 04-24-2024 Dr. Kanwal Aguilar MD [facility] Work Phone: Start: 02-17-2024 Dr. Jordana sandoval MD [facility] Work Phone: Start: 02-16-2024 Dr. Jordana sandoval MD [facility] Work Phone: Start: 02-15-2024 Dr. Jordana sandoval MD -[facility] Work Phone: Start: 02-14-2024 Dr. Atul Quezada DO [facility] Start: 02-14-2024 Dr. Jordana sandoval MD -[facility] Work Phone: Start: 02-13-2024 ambulatory Jordana Hopkins Facility :[facility] Start: 02-13-2024 End: 02-17-2024 Evaluation and management of inpatient Tamiko Quigley Facility:[facility] Start: 02-13-2024 End: 02-17-2024 Dr. Jordana Hopkins MD -Progressive Care Unit Work Phone: Start: 01-25-2024 End: 01-25-2024 Christopherraquel Huang -[facility] Work Phone: Start: 01-25-2024 End: 01-25-2024 ambulatory Christopher Clarkia Facility:[facility] Start: 01-05-2024 Dr. Zahra desir MD -[facility] Work Phone: Start: 01-04-2024 ambulatory Christophertalon Huang Facility :[facility] Start: 01-04-2024 Christopherraquel Huang DO -[facility] Start: 01-04-2024 End: 01-04-2024 ambulatory Renemary Justice Facility:[facility] Start: 01-04-2024 End: 01-04-2024 Dr. Martina Rendon MD -[facility] Work Phone: Start: 01-03-2024 Dr. Zahra desir MD -[facility] Work Phone: Start: 01-02-2024 [facility]. Atul Quezada DO [facility] Start: 01-02-2024 Dr. Zahra desir MD -[facility] Work Phone: Start: 01-01-2024 Dr. Atul Quezada DO -[facility] Start: 01-01-2024 Dr. Zahra desir MD -[facility] Work Phone: Start: 12-31-2023 Christopher Huang DO -[facility] Start: 12-31-2023 Dr. Atul Quezada DO -[facility] Start: 12-31-2023 ambulatory Rudy Sharla Facility:[facility] Start: 12-31-2023 Dr. Zahra desir MD -[facility] Work Phone: Start: 12-30-2023 ambulatory Tiffanie Jimenez Facility:[facility] Start: 12-30-2023 End: 01-05-2024 Evaluation and management of inpatient Rudy Sharla Facility:[facility] Start: 12-30-2023 End: 01-05-2024 Dr. Zahra Palacio MD -Progressive Care Unit Work Phone: Start: 11-05-2023 ambulatory Rudy Sharla [facility] Start: 10-11-2023 End: 10-11-2023 ambulatory Rudy Sharla [facility] Start: 10-10-2023 End: 10-11-2023 ambulatory Polvadera Sharla Facility:[facility] Start: 09-20-2023 ambulatory Rudy Sharla [facility] Start: 09-17-2023 ambulatory Polvadera Sharla [facility] Start: 09-17-2023 ambulatory Nicola Jopperi [facility] Start: 09-17-2023 End: 09-20-2023 Evaluation and management of inpatient Nicola Jopperi Facility:[facility] Start: 06-18-2023 End: 06-18-2023 ambulatory WALLPAPER PRINTER HELPER-C Rudy Boyer Work Phone: [facility] Work Phone: Start: 06-18-2023 End: 06-18-2023 Patient encounter procedure WALLPAPER PRINTER HELPER-C Rudy Boyer Work Phone: [facility]-Radiology, [place] Work Phone: Start: 05-22-2023 ambulatory Nurse Vivek wall Work Phone: Allergy Comment on above: Allergy & immunology Previsit Instructions Start: 05-22-2023 E-mail encounter nayely peterson caregiver Nurse Vivek Main Work Phone: [facility] Start: 05-21-2023 Orders Only Nicola Adhikari MD Work Phone: [facility] Comment on above: Closed displaced int ertrochanteric fracture of right femur with routine healing, subsequent encounter (Primary Dx) Start: 04-18-2023 Non-patient / Non-visit WALLPAPER PRINTER HELPER-C R achel Sharla Work Phone: [facility] Work Phone: Start: 04-18-2023 WALLPAPER PRINTER HELPER-C Rudy Ed gar Work Phone: [facility] Work Phone: Start: 04-17-2023 Non-patient / Non-visit WALLPAPER PRINTER HELPER-C R achel Sharla Work Phone: [facility] Start: 04-17-2023 WALLPAPER PRINTER HELPER-C Rudy Ed gar Work Phone: [facility] Start: 04-17-2023 Non-patient / Non-visit WALLPAPER PRINTER HELPER-C R achel Sharla Work Phone: [facility] Work Phone: Start: 04-17-2023 WALLPAPER PRINTER HELPER-C Rudy Ed gar Work Phone: [facility] Work Phone: Start: 04-16-2023 Non-patient / Non-visit WALLPAPER PRINTER HELPER-C R achel Sharla Work Phone: [facility] Start: 04-16-2023 WALLPAPER PRINTER HELPER-C Rudy Ed gar Work Phone: [facility] Start: 04-16-2023 Non-patient / Non-visit WALLPAPER PRINTER HELPER-C R achel Sharla Work Phone: [facility] Work Phone: Start: 04-16-2023 WALLPAPER PRINTER HELPER-C Rudy Ed gar Work Phone: [facility] Work Phone: Start: 04-15-2023 Non-patient / Non-visit WALLPAPER PRINTER HELPER-C R achel Sharla Work Phone: [facility] Start: 04-15-2023 WALLPAPER PRINTER HELPER-C Rudy Ed gar Work Phone: [facility] Start: 04-15-2023 Non-patient / Non-visit WALLPAPER PRINTER HELPER-C R achel Sharla Work Phone: [facility] Work Phone: Start: 04-15-2023 WALLPAPER PRINTER HELPER-C Rudy Ed gar Work Phone: [facility] Work Phone: Start: 04-14-2023 End: 04-18-2023 Evaluation and management of inpatient WALLPAPER PRINTER HELPER-C Rudy Sharla Work Phone: [facility] Work Phone: Start: 04-14-2023 Non-patient / Non-visit WALLPAPER PRINTER HELPER-C R achel Sharla Work Phone: [facility] Work Phone: Start: 04-14-2023 End: 04-18-2023 [facility]-Intensive Care Unit Work Phone: Start: 04-12-2023 Telephone encounter Nicola morrison MD Work Phone: [facility] Comment on above: Home Care Start: 04-10-2023 End: 04-10-2023 ambulatory NICOLA ADHIKARI [facility] Start: 04-10-2023 End: 04-10-2023 Office outpatient visit 15 minutes Nicola Adhikari MD Work Phone: [facility] Comment on above: Closed displaced int ertrochanteric fracture of right femur with routine healing, subsequent encounter (Primary Dx) Start: 04-02-2023 Orders Only Nicola Adhikari MD Work Phone: [facility] Comment on above: Closed displaced int ertrochanteric fracture of right femur with routine healing, subsequent encounter (Primary Dx) Start: 03-26-2023 End: 03-26-2023 Departed Referred WALLPAPER PRINTER HELPERJarad Boyer Work Phone: [facility] Start: 03-26-2023 End: 03-26-2023 [facility] Start: 03-19-2023 End: 03-19-2023 ambulatory [facility] Work Phone: Start: 03-19-2023 End: 03-19-2023 Departed Referred ORESTES Boyer Work Phone: [facility] Start: 03-19-2023 Registered Referred [facility] Start: 03-19-2023 End: 03-19-2023 [facility] Start: 03-12-2023 End: 03-12-2023 ambulatory [facility] Work Phone: Start: 03-12-2023 End: 03-12-2023 Departed Referred ORESTES Boyer Work Phone: [facility] Start: 03-12-2023 Registered Referred [facility] Start: 03-12-2023 End: 03-12-2023 [facility] Start: 03-05-2023 End: 03-05-2023 ambulatory [facility] Work Phone: Start: 03-05-2023 End: 03-05-2023 Departed Referred [facility] Start: 03-05-2023 End: 03-05-2023 [facility] Start: 02-26-2023 End: 02-26-2023 ambulatory [facility] Work Phone: Start: 02-26-2023 End: 02-26-2023 Departed Referred [facility] Start: 02-26-2023 Registered Referred [facility] Start: 02-26-2023 End: 02-26-2023 [facility] Start: 02-19-2023 End: 02-19-2023 ambulatory [facility] Work Phone: Start: 02-19-2023 Registered Referred [facility] Start: 02-19-2023 End: 02-19-2023 [facility] Start: 02-13-2023 End: 02-13-2023 ambulatory [facility] Work Phone: Start: 02-13-2023 End: 02-13-2023 Departed Referred [facility] Start: 02-13-2023 Registered Referred [facility] Start: 02-13-2023 End: 02-13-2023 [facility] Start: 02-07-2023 End: 02-07-2023 ambulatory [facility] Work Phone: Start: 02-07-2023 End: 02-07-2023 Departed Referred [facility] Start: 02-07-2023 Registered Referred [facility] Start: 02-07-2023 End: 02-07-2023 [facility] Start: 02-06-2023 End: 02-06-2023 ambulatory [facility] Work Phone: Start: 02-06-2023 End: 02-06-2023 Departed Referred [facility] Start: 02-06-2023 End: 02-06-2023 [facility] Start: 01-29-2023 End: 01-29-2023 ambulatory [facility] Work Phone: Start: 01-29-2023 End: 01-29-2023 Departed Referred [facility] Start: 01-29-2023 Registered Referred [facility] Start: 01-29-2023 End: 01-29-2023 [facility] Start: 01-22-2023 End: 01-22-2023 ambulatory [facility] Work Phone: Start: 01-22-2023 End: 01-22-2023 Departed Referred [facility] Start: 01-22-2023 Registered Referred [facility] Start: 01-22-2023 End: 01-22-2023 [facility] Start: 01-15-2023 Registered Referred [facility] Start: 01-15-2023 [facility] Start: 01-10-2023 Registered Referred [facility] Start: 01-10-2023 [facility] Start: 01-08-2023 Registered Referred [facility] Start: 01-08-2023 [facility] Start: 01-05-2023 Registered Referred [facility] Start: 01-05-2023 [facility] Start: 01-02-2023 Telephone encounter Yifan downey PA-C Work Phone: [facility] Comment on above: orders need sent to facility PO Start: 01-02-2023 Registered Referred [facility] Start: 01-02-2023 [facility] Start: 12-29-2022 Orders Only Phyllis Guevara PA-C Work Phone: [facility] Comment on above: S/P total left hip a rthroplasty (Primary Dx) Start: 12-27-2022 ambulatory ANUJA WOLFE [facility] Start: 12-25-2022 ambulatory ANUJA SIESEL [facility] Start: 12-24-2022 End: 12-24-2022 Emergency department patient visit PCP NONE [facility] Start: 12-23-2022 Emergency department patient visit JOHN OVIEDO [facility] Start: 12-23-2022 End: 01-01-2023 Evaluation and management of inpatient ESTEBAN HAWLEY [facility] Start: 12-23-2022 End: 01-01-2023 Evaluation and management of inpatient Esteban Hawley MD Work Phone: [facility] Surgical Progressive Care Unit PCU H6 Start: 12-23-2022 End: 12-23-2022 Emergency department patient visit [facility]Emergency [facility] Work Phone: Start: 12-23-2022 End: 12-23-2022 [facility]Emergency [facility] Work Phone: Start: 12-23-2022 Documentation procedure Debi Lamb MD Work Phone: [facility] Start: 11-06-2022 End: 11-06-2022 Orders Only Regina Oden DO Work Phone: Hematology/Oncology Comment on above: Lymphocytosis (Prima ry Dx) Appointment Start: 11-06-2022 End: 11-06-2022 Postop follow up visit related to original px Phyllis Guevara PA-C Work Phone: [facility] Comment on above: Failed orthopedic im plant, initial encounter ([facility]); S/P total left hip arthroplasty Start: 10-30-2022 Telephone encounter Berry Mares MD Work Phone: [facility] Comment on above: Orders (Lovenox) Start: 10-19-2022 Orders Only Regina Zavala O Work Phone: Hematology/Oncology Comment on above: Lytic bone lesions o n xray (Primary Dx) Appointment Start: 10-16-2022 Telephone encounter Miguel Chapman Work Phone: [facility] Clinical Communication Start: 10-03-2022 End: 09-03-2023 Evaluation and management of inpatient CICI [facility] Start: 10-03-2022 End: 10-15-2022 Evaluation and management of inpatient Vineet Mckeon MD Work Phone: [facility] Start: 10-03-2022 End: 10-04-2022 ambulatory [facility] Start: 10-03-2022 End: 10-03-2022 ambulatory [facility] Start: 10-03-2022 End: 10-03-2022 Office outpatient new 60 minutes Cici Martinez MD Work Phone: [facility] Comment on above: Failed orthopedic im plant, initial encounter (HCC) (Primary Dx); Left hip pain Start: 10-03-2022 Telephone encounter Regina bender DO Work Phone: Hematology/Oncology Comment on above: Results Start: 09-27-2022 Telephone encounter Regina Wright ci DO Work Phone: Hematology/Oncology Start: 09-18-2022 Telephone encounter Regina Wright ci DO Work Phone: Hematology/Oncology Comment on above: Question Start: 09-18-2022 End: 09-18-[address] Cici Calderon Work Phone: [facility] Work Phone: Start: 09-18-2022 End: 09-18-[address] Cici Calderon Work Phone: [facility] Work Phone: Start: 08-17-2022 Telephone encounter Regina Wright ci DO Work Phone: Hematology/Oncology Comment on above: New Patient Start: 08-16-2022 Non-patient / Non-visit Dr. Babatunde Calderon Work Phone: [facility] Work Phone: Start: 08-15-2022 Non-patient / Non-visit Dr. Babatunde Calderon Work Phone: [facility] Start: 08-15-2022 Non-patient / Non-visit Dr. Babatunde Calderon Work Phone: [facility] Work Phone: Start: 08-14-2022 Non-patient / Non-visit Dr. Babatunde Calderon Work Phone: [facility] Start: 08-14-2022 Non-patient / Non-visit Dr. Babatunde Calderon Work Phone: [facility] Work Phone: Start: 08-13-2022 Non-patient / Non-visit Dr. Babatunde Calderon Work Phone: [facility] Work Phone: Start: 08-12-2022 Non-patient / Non-visit Dr. Babatunde Calderon Work Phone: [facility] Work Phone: Start: 08-11-2022 Non-patient / Non-visit Dr. Babatunde Calderon Work Phone: [facility] Work Phone: Start: 08-10-2022 Non-patient / Non-visit Dr. Babatunde Calderon Work Phone: [facility] Work Phone: Start: 08-09-2022 Non-patient / Non-visit Dr. Babatunde Calderon Work Phone: [facility] Work Phone: Start: 08-08-2022 Non-patient / Non-visit Dr. Babatunde Calderon Work Phone: [facility] Work Phone: Start: 08-07-2022 Non-patient / Non-visit Dr. Babatunde Calderon Work Phone: [facility] Work Phone: Start: 08-07-2022 End: 08-07-2022 Non-patient / Non-visit Dr. Cici Calderon Work Phone: [facility] Work Phone: Start: 08-06-2022 Non-patient / Non-visit Dr. Babatunde Calderon Work Phone: [facility] Work Phone: Start: 08-05-2022 End: 08-16-2022 Evaluation and management of inpatient Dr. Cici Calderon Work Phone: [facility] 3 Start: 07-13-2022 End: 07-13-[address] Cici Calderon Work Phone: [facility] Work Phone: Start: 07-13-2022 End: 07-13-[address] [facility] Start: 07-06-2022 End: 07-06-[address] Cici Calderon Work Phone: [facility] Start: 07-26-2021 End: 07-26-2021 [facility] encounter [facility] Start: 04-16-2018 End: 04-16-2018 Patient encounter procedure [facility] Start: 03-27-2018 End: 03-27-2018 Patient encounter procedure [facility] Start: 03-07-2018 Encounter for other preprocedural examination [facility] Start: 03-07-2018 End: 03-08-2018 Patient encounter procedure [facility] Start: 09-16-2016 Ambulatory UNKNOWN PROVIDER [facility] Start: 07-27-2008 End: 08-03-2012 Patient encounter status Regina Oden DO Work Phone: [facility] Procedures Date Procedure Procedure Detail Performing Clinician Start: 05-16-2024 X-ray of chest, PA and lateral views Rudy Sharla WALLPAPER PRINTER HELPER-C Work Phone: Start: 05-14-2024 Complete ultrasound of kidneys and bladder Rudy Sharla WALLPAPER PRINTER HELPER-C Work Phone: Start: 05-13-2024 CT of head without contrast Rudy Sharla WALLPAPER PRINTER HELPER-C Work Phone: Start: 05-13-2024 CT of lumbar spine Rudy Sharla WALLPAPER PRINTER HELPER-C Work Phone: Start: 04-20-2024 CT of abdomen and pelvis without contrast Rudy Sharla WALLPAPER PRINTER HELPER-C Work Phone: Start: 04-20-2024 Plain radiography of pelvis Rudy Sharla WALLPAPER PRINTER HELPER-C Work Phone: Start: 04-20-2024 CT cervical spine without contrast Racxenia hernandez Sharla WALLPAPER PRINTER HELPER-C Work Phone: Start: 04-20-2024 CT of chest without contrast Rudy Edga r WALLPAPER PRINTER HELPER-C Work Phone: Start: 04-20-2024 CT of head without contrast Rudy Sharla WALLPAPER PRINTER HELPER-C Work Phone: Start: 04-20-2024 Bacterial nucleic acid assay Rudy Edga r WALLPAPER PRINTER HELPER-C Work Phone: Start: 04-20-2024 Blood culture Rudy Sharla WALLPAPER PRINTER HELPER-C Work Phone: Start: 04-20-2024 Urine culture Rudy Sharla WALLPAPER PRINTER HELPER-C Work Phone: Start: 04-20-2024 Rudy Sharla WALLPAPER PRINTER HELPER-C Work Phone: Start: 02-14-2024 Nucleic acid assay Rudy Sharla WALLPAPER PRINTER HELPER-C Work Phone: Start: 02-14-2024 Viral antigen assay Rudy Sharla WALLPAPER PRINTER HELPER-C Work Phone: Start: 02-13-2024 CT of abdomen and pelvis without contrast Rudy Sharla WALLPAPER PRINTER HELPER-C Work Phone: Start: 02-13-2024 Plain chest X-ray Rudy Adornogar WALLPAPER PRINTER HELPER-C Work Phone: Start: 02-13-2024 CT cervical spine without contrast Todd Boyer WALLPAPER PRINTER HELPER-C Work Phone: Start: 02-13-2024 CT of head without contrast Rudy Boyer WALLPAPER PRINTER HELPER-C Work Phone: Start: 02-13-2024 Blood culture Rudy Sharla WALLPAPER PRINTER HELPER-C Work Phone: Start: 02-13-2024 Urine culture Rudy Adornogar WALLPAPER PRINTER HELPER-C Work Phone: Start: 01-04-2024 Esophagogastroduodenoscopy Rudy Adornogar WALLPAPER PRINTER HELPER-C Work Phone: Start: 01-02-2024 Clostridium difficile detection Rudy burgessar WALLPAPER PRINTER HELPER-C Work Phone: Start: 01-02-2024 Nucleic acid assay Rudy Sharla WALLPAPER PRINTER HELPER-C Work Phone: Start: 12-31-2023 Nucleic acid assay Rudy Sharla WALLPAPER PRINTER HELPER-C Work Phone: Start: 12-31-2023 Plain chest X-ray Rudy Adornogar WALLPAPER PRINTER HELPER-C Work Phone: Start: 12-30-2023 CT of thorax, abdomen and pelvis with contrast Rudy Adornogar WALLPAPER PRINTER HELPER-C Work Phone: Start: 12-30-2023 Bacterial nucleic acid assay Rudy Adornoga r WALLPAPER PRINTER HELPER-C Work Phone: Start: 12-30-2023 Blood culture Rudy Sharla WALLPAPER PRINTER HELPER-C Work Phone: Start: 12-30-2023 Influenza virus A and B and SARS-CoV-2 (COVID-19) and Respiratory syncytial virus RNA Rudy Sharla WALLPAPER PRINTER HELPER-C Work Phone: Start: 12-30-2023 Legionella pneumophila antigen assay Rudy Sharla WALLPAPER PRINTER HELPER-C Work Phone: Start: 12-30-2023 Measurement of occult blood in stool specimen using immunoassay Rudy Sharla WALLPAPER PRINTER HELPER-C Work Phone: Start: 12-30-2023 Urine culture Rudy Boyer WALLPAPER PRINTER HELPER-C Work Phone: Start: 06-18-2023 Complete x-ray series of lumbar spine with bending views WALLPAPER PRINTER HELPER-C Rudy Boyer Work Phone: Start: 04-16-2023 Colonoscopy WALLPAPER PRINTER HELPER-C Rudyjody Boyer Work Phone: Start: 04-14-2023 Bacteria identified in Blood by Culture WALLPAPER PRINTER HELPER-C Rudy Sharla Work Phone: Start: 04-14-2023 Urine culture WALLPAPER PRINTER HELPER-C Rudy Boyer Work Phone: Start: 04-14-2023 Computed tomography of abdomen and pelvis with intravenous contrast Start: 04-10-2023 Follow-up visit ESTEBAN HAWLEY Start: 02-07-2023 Bacteria identification test Start: 01-10-2023 Urine culture Start: 01-01-2023 Glucose quantitative blood xcpt reagent strip Esteban Hawley MD Work Phone: Start: 01-01-2023 Glucose quantitative blood xcpt reagent strip Esteban Hawley MD Work Phone: Start: 01-01-2023 Glucose quantitative blood xcpt reagent strip Esteban Hawley MD Work Phone: Start: 01-01-2023 Glucose quantitative blood xcpt reagent strip Esteban Hawley MD Work Phone: Start: 01-01-2023 Basic metabolic panel calcium total Bari Glass MD Work Phone: Start: 12-31-2022 Glucose quantitative blood xcpt reagent strip Esteban Hawley MD Work Phone: Start: 12-31-2022 Glucose quantitative blood xcpt reagent strip Esteban Hawley MD Work Phone: Start: 12-31-2022 Glucose quantitative blood xcpt reagent strip Esteban Hawley MD Work Phone: Start: 12-31-2022 Glucose quantitative blood xcpt reagent strip Esteban Hawley MD Work Phone: Start: 12-31-2022 Basic metabolic panel calcium total Bari Glass MD Work Phone: Start: 12-30-2022 Glucose quantitative blood xcpt reagent strip Esteban Hawley MD Work Phone: Start: 12-30-2022 Glucose quantitative blood xcpt reagent strip Esteban Hawley MD Work Phone: Start: 12-30-2022 Glucose quantitative blood xcpt reagent strip Esteban Hawley MD Work Phone: Start: 12-30-2022 Glucose quantitative blood xcpt reagent strip Esteban Hawley MD Work Phone: Start: 12-30-2022 Basic metabolic panel calcium total Bari Glass MD Work Phone: Start: 12-29-2022 Glucose quantitative blood xcpt reagent strip Esteban Hawley MD Work Phone: Start: 12-29-2022 Glucose quantitative blood xcpt reagent strip Esteban Hawley MD Work Phone: Start: 12-29-2022 End: 12-29-2022 Blood count hematocrit Tawanna Gamez APR N - NETWORK SYSTEMS OPERATOR Work Phone: Start: 12-29-2022 Glucose quantitative blood xcpt reagent strip Esteban Hawley MD Work Phone: Start: 12-29-2022 Basic metabolic panel calcium total Bari Glass MD Work Phone: Start: 12-28-2022 Glucose quantitative blood xcpt reagent strip Esteban Hawley MD Work Phone: Start: 12-28-2022 Glucose quantitative blood xcpt reagent strip Esteban Hawley MD Work Phone: Start: 12-28-2022 Glucose quantitative blood xcpt reagent strip Esteban Hawley MD Work Phone: Start: 12-28-2022 End: 12-28-2022 Blood count hematocrit Ricco Rockwell DYE MACHINE OPERATOR - NETWORK SYSTEMS OPERATOR Work Phone: Start: 12-28-2022 Basic metabolic panel calcium total Bari Glass MD Work Phone: Start: 12-27-2022 Glucose quantitative blood xcpt reagent strip Esteban Hawley MD Work Phone: Start: 12-27-2022 Glucose quantitative blood xcpt reagent strip Esteban Hawley MD Work Phone: Start: 12-27-2022 Glucose quantitative blood xcpt reagent strip Esteban Hawley MD Work Phone: Start: 12-27-2022 Radiologic examination femur minimum 2 views Yifan Lozano PA-C Work Phone: Start: 12-27-2022 FL GUIDANCE OR USE ONLY - NON-RESULTABLE Nicola Adhikari MD Work Phone: Start: 12-27-2022 End: 12-27-2022 Tx inter/pr/subtrchntric fem fx imed impltscrew Nicola Adhikari MD Work Phone: Start: 12-27-2022 Glucose quantitative blood xcpt reagent strip Esteban Hawley MD Work Phone: Start: 12-27-2022 Glucose quantitative blood xcpt reagent strip Esteban Hawley MD Work Phone: Start: 12-27-2022 Culture bacterial quanttative colony count urine Sue Joe MD Work Phone: Start: 12-27-2022 Urinalysis complete panel - Urine Sue Joe MD Work Phone: Start: 12-27-2022 Radiologic exam chest single view Sue Joe MD Work Phone: Start: 12-27-2022 Basic metabolic panel calcium total Bari Glass MD Work Phone: Start: 12-27-2022 Antibody screen ESTEBAN HAWLEY Comment on above: Performed By: #### [id number] ####Medical Di silvia: VEENA RODRIGUEZ ([id number])[facility] ([facility])[address] [place] [address] Performed By: #### [id number] ####Client Service Supervisor: VEENA RODRIGUEZ ([id number])[facility] ([facility])[address] [place] [address] Start: 12-27-2022 Blood typing serologic abo Cece Abraham Work Phone: Start: 12-27-2022 Prothrombin time Cece Alcala PA-C Work Phone: Start: 12-26-2022 End: 12-26-2022 Glucose quantitative blood xcpt reagent strip Esteban Hawley MD Work Phone: Start: 12-26-2022 Glucose quantitative blood xcpt reagent strip Esteban Hawley MD Work Phone: Start: 12-26-2022 Glucose quantitative blood xcpt reagent strip Esteban Hawley MD Work Phone: Start: 12-26-[address] w/blood flow&volume Bari Glass MD Work Phone: Start: 12-26-2022 Ct angiography head w/contrast/noncontrast Bari Glass MD Work Phone: Start: 12-26-2022 Bilirubin direct Wilfrid Bender APRN - [facility] Work Phone: Start: 12-26-2022 Glucose quantitative blood xcpt reagent strip Esteban Hawley MD Work Phone: Start: 12-25-2022 End: 12-26-2022 Comprehensive metabolic panel Bari st MD Work Phone: Start: 12-25-2022 End: 12-25-2022 Exploratory laparotomy celiotomy w/wo biopsy spx Esteban Hawley MD Work Phone: Start: 12-25-2022 Basic metabolic panel calcium total Bari Glass MD Work Phone: Start: 12-24-2022 Glucose quantitative blood xcpt reagent strip Esteban Hawley MD Work Phone: Start: 12-24-2022 Glucose quantitative blood xcpt reagent strip Esteban Hawley MD Work Phone: Start: 12-24-2022 Ecg routine ecg w/least 12 lds trcg only w/o i&r Esteban Hawley MD Work Phone: Start: 12-24-2022 End: 12-24-2022 Blood count hematocrit Bari Glass MD Work Phone: Start: 12-24-2022 Compatibility each unit immediate spin technique Esteban Hawley MD Work Phone: Start: 12-24-2022 End: 12-24-2022 Plasma 1 donor frz w/in 8 hr Esteban shore MD Work Phone: Start: 12-24-2022 Glucose quantitative blood xcpt reagent strip Esteban Hawley MD Work Phone: Start: 12-24-2022 Radiologic exam chest single view Esteban Hawley MD Work Phone: Start: 12-24-2022 Blood gases any combination ph pco2 po2 co2 hco3 Esteban Hawley MD Work Phone: Start: 12-24-2022 Basic metabolic panel calcium total Esteban Hawley MD Work Phone: Start: 12-24-2022 Radiologic exam abdomen 1 view Alvarez Guerrero MD Work Phone: Start: 12-24-2022 Glucose quantitative blood xcpt reagent strip Esteban Hawley MD Work Phone: Start: 12-23-2022 End: 12-23-2022 Radiologic exam pelvis compl minimum 3 views Sharita Dos Santos MD Work Phone: Start: 12-23-2022 Ecg routine ecg w/least 12 lds trcg only w/o i&r Esteban Hawley MD Work Phone: Start: 12-23-2022 Blood gases any combination ph pco2 po2 co2 hco3 Esteban Hawley MD Work Phone: Start: 12-23-2022 Basic metabolic panel calcium total Esteban Hawley MD Work Phone: Start: 12-23-2022 End: 12-23-2022 Drug screen quantitative alcohols Esteban Hawley MD Work Phone: Start: 12-23-2022 Radiologic exam chest single view Esteban Hawley MD Work Phone: Start: 12-23-2022 Guidance for embolization of Vessels Esteban Hawley MD Work Phone: Start: 12-23-2022 Antibody screen ESTEBAN HAWLEY Comment on above: Performed By: #### [id number] ####Medical Di silvia: VEENA RODRIGUEZ ([id number])[facility] BLOOD [facility] ([facility])[address] [place] [address] Performed By: #### L [id number] ####Client Service Supervisor: VEENA RODRIGUEZ ([phone])[facility] BLOOD [facility] ([address] Start: 12-23-2022 Blood gases any combination ph pco2 po2 co2 hco3 Esteban Hawley MD Work Phone: Start: 12-23-2022 End: 12-23-2022 Basic metabolic panel calcium total Esteban Hawley MD Work Phone: Start: 12-23-2022 End: 12-23-2022 Drug test def 1-7 classes Esteban Hawley MD Work Phone: Start: 12-23-2022 End: 12-23-2022 Exploratory laparotomy celiotomy w/wo biopsy spx Esteban Hawley MD Work Phone: Start: 12-23-2022 ABO and Rh group [Type] in Blood by Confirmatory method Esteban Hawley MD Work Phone: Start: 12-23-2022 Manual differential performed [Presence] in Blood Esteban Hawley MD Work Phone: Start: 12-23-2022 CT cervical spine without contrast Start: 12-23-2022 CT of thorax, abdomen and pelvis with contrast Start: 12-23-2022 Plain chest X-ray Start: 12-23-2022 Plain x-ray of pelvis and lower extremity Start: 12-23-2022 CT of head without contrast Start: 11-06-2022 Follow-up visit ESTEBAN HAWLEY Start: 10-15-2022 Glucose quantitative blood xcpt reagent strip Miguel Chapman Work Phone: Start: 10-15-2022 Glucose quantitative blood xcpt reagent strip Miguel Chapman Work Phone: Start: 10-15-2022 Basic metabolic panel calcium total Luis Causey MD Work Phone: Start: 10-14-2022 Glucose quantitative blood xcpt reagent strip Miguel Chapman Work Phone: Start: 10-14-2022 Glucose quantitative blood xcpt reagent strip Miguel Chapman Work Phone: Start: 10-14-2022 Glucose quantitative blood xcpt reagent strip Miguel Chapman Work Phone: Start: 10-14-2022 Glucose quantitative blood xcpt reagent strip Miguel Chapman Work Phone: Start: 10-14-2022 Basic metabolic panel calcium total Luis Causey MD Work Phone: Start: 10-14-2022 Compatibility each unit electronic Berry Mares MD Work Phone: Start: 10-13-2022 Glucose quantitative blood xcpt reagent strip Gayle Herbert MD Work Phone: Start: 10-13-2022 Glucose quantitative blood xcpt reagent strip Gayle Herbert MD Work Phone: Start: 10-13-2022 Glucose quantitative blood xcpt reagent strip Gayle Herbert MD Work Phone: Start: 10-13-2022 End: 10-13-2022 Basic metabolic panel calcium total Luis Causey MD Work Phone: Start: 10-12-2022 Glucose quantitative blood xcpt reagent strip Gayle Herbert MD Work Phone: Start: 10-12-2022 Glucose quantitative blood xcpt reagent strip Gayle Herbert MD Work Phone: Start: 10-12-2022 Glucose quantitative blood xcpt reagent strip Gayle Herbert MD Work Phone: Start: 10-12-2022 Glucose quantitative blood xcpt reagent strip Gayle Herbert MD Work Phone: Start: 10-12-2022 Basic metabolic panel calcium total Luis Causey MD Work Phone: Start: 10-11-2022 Glucose quantitative blood xcpt reagent strip Gayle Herbert MD Work Phone: Start: 10-11-2022 Glucose quantitative blood xcpt reagent strip aGyle Herbert MD Work Phone: Start: 10-11-2022 POCT GLUCOSE METER UNSOLICITED RESULTS Gayle Herbert MD Work Phone: Start: 10-11-2022 Glucose quantitative blood xcpt reagent strip Gayle Herbert MD Work Phone: Start: 10-11-2022 Basic metabolic panel calcium total Petra Rivers MD Work Phone: Start: 10-10-2022 End: 10-10-2022 Blood count hematocrit Luis Causey MD Work Phone: Start: 10-10-2022 End: 10-10-2022 Radiologic examination femur minimum 2 views Luis Causey MD Work Phone: Start: 10-10-2022 Glucose quantitative blood xcpt reagent strip Gayle Herbert MD Work Phone: Start: 10-10-2022 FL GUIDANCE OR USE ONLY - NON-RESULTABLE Berry Mares MD Work Phone: Start: 10-10-2022 Culture bacterial any source anaerobic iso&id Berry Mares MD Work Phone: Start: 10-10-2022 Compatibility each unit electronic Shabbir Preston MD Work Phone: Start: 10-10-2022 End: 10-10-2022 TRANSFUSE RED BLOOD CELLS Shabbir Zavala Work Phone: Start: 10-10-2022 End: 10-10-2022 Culture bacterial any source anaerobic iso&id Berry Mares MD Work Phone: Start: 10-10-2022 End: 10-10-2022 Arthrp acetblr/prox fem prostc agrft/algrft Berry Mares MD Work Phone: Start: 10-10-2022 Glucose quantitative blood xcpt reagent strip Gayle Herbert MD Work Phone: Start: 10-10-2022 Glucose quantitative blood xcpt reagent strip Gayle Herbert MD Work Phone: Start: 10-10-2022 Basic metabolic panel calcium total Petra Rivers MD Work Phone: Start: 10-10-2022 Blood typing serologic abo Cece Abraham Work Phone: Start: 10-09-2022 Glucose quantitative blood xcpt reagent strip Gayle Herbert MD Work Phone: Start: 10-09-2022 Radiologic examination femur minimum 2 views Luis Causey MD Work Phone: Start: 10-09-2022 Glucose quantitative blood xcpt reagent strip Gayle Herbert MD Work Phone: Start: 10-09-2022 Glucose quantitative blood xcpt reagent strip Gayle Herbert MD Work Phone: Start: 10-09-2022 Glucose quantitative blood xcpt reagent strip Gayle Herbert MD Work Phone: Start: 10-09-2022 Basic metabolic panel calcium total Petra Rivers MD Work Phone: Start: 10-08-2022 Glucose quantitative blood xcpt reagent strip Gayle Herbert MD Work Phone: Start: 10-08-2022 Glucose quantitative blood xcpt reagent strip Gayle Herbert MD Work Phone: Start: 10-08-2022 Glucose quantitative blood xcpt reagent strip Gayle Herbert MD Work Phone: Start: 10-08-2022 Glucose quantitative blood xcpt reagent strip Gayle Herbert MD Work Phone: Start: 10-08-2022 Basic metabolic panel calcium total Petra Rivers MD Work Phone: Start: 10-07-2022 Glucose quantitative blood xcpt reagent strip Gayle Herbert MD Work Phone: Start: 10-07-2022 Glucose quantitative blood xcpt reagent strip Gayle Herbert MD Work Phone: Start: 10-07-2022 Glucose quantitative blood xcpt reagent strip Gayle Herbert MD Work Phone: Start: 10-07-2022 Glucose quantitative blood xcpt reagent strip Gayle Herbert MD Work Phone: Start: 10-07-2022 Basic metabolic panel calcium total Petra Rivers MD Work Phone: Start: 10-06-2022 Glucose quantitative blood xcpt reagent strip Gayle Herbert MD Work Phone: Start: 10-06-2022 Glucose quantitative blood xcpt reagent strip Gayle Herbert MD Work Phone: Start: 10-06-2022 Glucose quantitative blood xcpt reagent strip Gayle Herbert MD Work Phone: Start: 10-06-2022 Glucose quantitative blood xcpt reagent strip Gayle Herbert MD Work Phone: Start: 10-06-2022 Basic metabolic panel calcium total Petra Rivers MD Work Phone: Start: 10-05-2022 Glucose quantitative blood xcpt reagent strip Alexis Magallanes MD Work Phone: Start: 10-05-2022 Glucose quantitative blood xcpt reagent strip Alexis Magallanes MD Work Phone: Start: 10-05-2022 Radiologic examination knee 1/2 views Cece Alcalamitzi REID Work Phone: Start: 10-05-2022 Glucose quantitative blood xcpt reagent strip Alexis Magallanes MD Work Phone: Start: 10-05-2022 Glucose quantitative blood xcpt reagent strip Alexis Magallanes MD Work Phone: Start: 10-05-2022 Basic metabolic panel calcium total Petra Rivers MD Work Phone: Start: 10-04-2022 Glucose quantitative blood xcpt reagent strip Perta Rivers MD Work Phone: Start: 10-04-2022 Radiologic exam chest single view Cece Mckeonmitzi REID Work Phone: Start: 10-04-2022 End: 10-04-2022 Comprehensive metabolic panel Kofi ashley MD Work Phone: Start: 10-04-2022 Ecg routine ecg w/least 12 lds trcg only w/o i&r Kofi Jolley MD Work Phone: Start: 10-03-2022 Glucose quantitative blood xcpt reagent strip Vineet Mckeon MD Work Phone: Start: 10-03-2022 Ct angiography pelvis w/contrast/noncontrast Yared Decker MD Work Phone: Start: 10-03-2022 Ct lower extremity w/o contrast material Rudy Crock PA-C Work Phone: Start: 10-03-2022 ABO and Rh group [Type] in Blood by Confirmatory method Rudy Crock PA-C Work Phone: Start: 10-03-2022 End: 10-03-2022 Basic metabolic panel calcium total Rudy Crock PA-C Work Phone: Start: 10-03-2022 C-reactive protein Yared Decker MD Work Phone: Start: 10-03-2022 Follow-up visit ESTEBAN HAWLEY Start: 10-03-2022 Radex hip unilateral with pelvis 2-3 views Cici Martinez MD Work Phone: Start: 09-18-2022 Biopsy/Inj or Needle Placement Dr. Cici Calderon Work Phone: Start: 08-16-2022 Radiologic examination, osseous survey, complete Dr. Cici Calderon Work Phone: Start: 08-16-2022 Plain chest X-ray Dr. Cici Calderon Work Phone: Start: 08-15-2022 Plain chest X-ray Dr. Cici Calderon Work Phone: Start: 08-14-2022 Plain chest X-ray Dr. Cici Calderon Work Phone: Start: 08-14-[address] Cici lee Work Phone: Start: 08-14-[address] Cici Calderon Work Phone: Start: 08-14-2022 Investigation of transfusion reaction Dr. Cici Calderon Work Phone: Start: 08-14-2022 Computed tomography of abdomen and pelvis with contrast Dr. Cici Calderon Work Phone: Start: 08-13-2022 Ultrasonic guidance for thoracentesis Dr. Cici Calderon Work Phone: Start: 08-13-2022 CT of chest without contrast Dr. Cici zarate Work Phone: Start: 08-13-2022 Plain chest X-ray Dr. Cici Calderon Work Phone: Start: 08-07-2022 Bacteria identified in Blood by Culture Dr. Cici Calderon Work Phone: Start: 08-07-[address] Cici Calderon Work Phone: Start: 08-07-2022 MRI of lower extremity Dr. Cici Calderon Work Phone: Start: 08-07-2022 MRI of brain without contrast Dr. Cici Calderon Work Phone: Start: 08-07-2022 Plain chest X-ray Dr. Cici Calderon Work Phone: Start: 08-07-2022 CT angiography of head and neck Dr. Boo Calderon Work Phone: Start: 08-07-2022 CT of head without contrast Dr. Cici lee Work Phone: Start: 08-06-2022 Open reduction of fracture of femur with internal fixation Dr. Cici Calderon Work Phone: Start: 08-06-[address] Cici Calderon Work Phone: Start: 08-06-2022 Plain x-ray of pelvis and lower extremity Dr. Cici Calderon Work Phone: Start: 08-06-2022 Plain chest X-ray Dr. Cici Calderon Work Phone: Start: 08-05-2022 Plain x-ray of pelvis and lower extremity Dr. Cici Calderon Work Phone: Start: 08-05-2022 CT cervical spine without contrast Dr. Mikey Calderon Work Phone: Start: 08-05-2022 CT of head without contrast Dr. Cici lee Work Phone: Start: 08-05-2022 X-ray of chest posteroanterior view Dr. Cici Calderon Work Phone: Start: 07-06-2022 Plain x-ray of pelvis and lower extremity Dr. Cici Calderon Work Phone: Start: 07-26-2021 X-ray of lumbosacral spine Start: 07-27-2008 Colonoscopy Regina Oedn DO Work Phone: Start: 07-27-2008 Mammography Regina Oden DO Work Phone: Plan of Treatment Date Care Activity Detail Author Start: 05-13-2034 Urine microalbumin profile DTaP,Tdap,Td Vaccine (4 - Td or Tdap) [facility] Start: 03-06-2029 DTaP/Tdap/Td Vaccines (2 - Td or Tdap) DTaP/Tdap/Td Vaccines (2 - Td or Tdap) [facility] Start: 03-06-2029 Urine microalbumin profile [facility] Start: 03-06-2029 [facility] Start: 2028 RSV Vaccine (1 - 1-dose 75+ series) RSV Vaccine (1 - 1-dose 75+ series) [facility] Start: 12-27-2025 Diabetes mellitus screening [facility] Start: 06-20-2025 BP Controlled (<130/80) BP Controlled (<130/80) [facility] Start: 10-13-2024 Influenza vaccination Influenza Vaccine (Season Ended) [facility] Start: 09-08-2024 End: 09-08-2024 Patient encounter procedure 09/08/2024 11:00 AM EDT Office Visit Endocrinology [address] [place], [place] [id number] Jeromy Lai MD [address] [place] [address] 4 wk f/u-Osteoporosis DXA scan 08/14/24 Endocrinology Comment on above: 4 wk f/u-Osteoporosis DXA scan 08/14/24 Start: 08-14-2024 End: 08-14-2024 Patient encounter procedure 08/14/2024 10:00 AM EDT Appointment [facility] [address] [place] [id number] Osteoporosis without current pathological fracture, unspecified osteoporosis type [M81.0] [facility] Comment on above: Osteoporosis without current pathologica l fracture, unspecified osteoporosis type [M81.0] Start: 08-11-2024 End: 11-10-2024 25-hydroxyvitamin D3 [Mass/volume] in Serum or Plasma VITAMIN D 25 HYDROXY Lab Routine Osteoporosis without current pathological fracture, unspecified osteoporosis type Expected: 08/11/2024, Expires: 11/10/[address] [facility] Work Phone: Comment on above: Expected: 08/11/2024, Expires: Start: 08-11-2024 End: 11-10-2024 ALK PHOS BONE SPEC ALK PHOS BONE SPEC Lab Routine Osteoporosis without current pathological fracture, unspecified osteoporosis type Expected: 08/11/2024, Expires: 11/10/2024 [facility] Comment on above: Expected: 08/11/2024, Expires: Start: 08-11-2024 End: 11-10-2024 Calcium.ionized [Moles/volume] in Blood CALCIUM, IONIZED Lab Routine Osteoporosis without current pathological fracture, unspecified osteoporosis type Expected: 08/11/2024, Expires: 11/10/2024 [facility] Comment on above: Expected: 08/11/2024, Expires: Start: 08-11-2024 End: 11-10-2024 Collagen crosslinked C-telopeptide [Mass/volume] in Serum or Plasma C TELOPEPTIDE, BETA Lab Routine Osteoporosis without current pathological fracture, unspecified osteoporosis type Expected: 08/11/2024, Expires: 11/10/2024 [facility] Comment on above: Expected: 08/11/2024, Expires: Start: 08-11-2024 End: 11-10-2024 Comprehensive metabolic 2000 panel - Serum or Plasma COMPREHENSIVE METABOLIC PANEL Lab Routine Osteoporosis without current pathological fracture, unspecified osteoporosis type Expected: 08/11/2024, Expires: 11/10/2024 [facility] Comment on above: Expected: 08/11/2024, Expires: Start: 08-11-2024 End: 11-10-2024 Magnesium [Mass/volume] in Serum or Plasma MAGNESIUM Lab Routine Osteoporosis without current pathological fracture, unspecified osteoporosis type Expected: 08/11/2024, Expires: 11/10/2024 [facility] Comment on above: Expected: 08/11/2024, Expires: Start: 08-11-2024 End: 11-10-2024 Parathyrin.intact [Mass/volume] in Serum or Plasma PTH INTACT Lab Routine Osteoporosis without current pathological fracture, unspecified osteoporosis type Expected: 08/11/2024, Expires: 11/10/2024 [facility] Comment on above: Expected: 08/11/2024, Expires: Start: 08-11-2024 End: 11-10-2024 Phosphate [Mass/volume] in Serum or Plasma PHOSPHORUS INORGANIC Lab Routine Osteoporosis without current pathological fracture, unspecified osteoporosis type Expected: 08/11/2024, Expires: 11/10/2024 [facility] Comment on above: Expected: 08/11/2024, Expires: Start: 08-11-2024 End: 08-11-2024 Patient encounter procedure 08/11/2024 10:00 AM EDT Office Visit Endocrinology [address] [place], [place] [id number] Jeromy Lai MD [address] [place], [place] [id number] Osteoporosis without current pathological fracture, unspecified osteoporosis typ Endocrinology Comment on above: Osteoporosis without current pathologica l fracture, unspecified osteoporosis typ Start: 06-20-2024 End: 09-19-2024 FLOW CYTOMETRY FOR LEUKEMIA/LYMPHOMA (FCLL) [facility] Comment on above: Expected: 06/20/2024, Expires: Start: 06-20-2024 End: 09-19-2024 Immunodeficiency panel - Blood by Flow cytometry (FC) [facility] Comment on above: Expected: 06/20/2024, Expires: Start: 06-20-2024 End: 09-19-2024 MONOCLONAL PROT UR W/INTERP [facility] Work Phone: Comment on above: Expected: 06/20/2024, Expires: Start: 06-20-2024 End: 09-19-2024 MONOCLONAL PROTEIN, SERUM (BLOOD) [facility] Comment on above: Expected: 06/20/2024, Expires: Start: 06-20-2024 End: 09-19-2024 [facility] Comment on above: Expected: 06/20/2024, Expires: Start: 06-20-2024 End: 09-19-2024 PROTEIN ELECTROPHORESIS SERUM W/INTERP [facility] Comment on above: Expected: 06/20/2024, Expires: Start: 06-20-2024 End: 06-20-2024 ambulatory 06/20/2024 11:40 AM EDT Visit (SP) Office Hematology/Oncology [address] [place] [address] Regina Oden DO [address] [place] [address] OV/PER TE 06/10 Hematology/Oncology Comment on above: OV/PER TE 06/10 Start: 05-17-2024 Patient discharge [facility] Start: 05-16-2024 [facility] Start: 05-16-2024 [facility] Start: 05-15-2024 Referral to roll on man [facility] Start: 05-14-2024 [facility] Start: 05-14-2024 Admission procedure [facility] Start: 05-13-2024 Following clinical pathway protocol [facility] Start: 05-13-2024 Assessment of risk of venous thromboembolism [facility] Start: 05-13-2024 Care regimes management [facility] Start: 05-13-2024 Fall prevention [facility] Start: 05-13-2024 Inhalation therapy procedure [facility] Start: 05-13-2024 Insertion of catheter into peripheral vein [facility] Start: 05-13-2024 Introduction of urinary catheter [facility] Start: 05-13-2024 Measuring intake and output [facility] Start: 05-13-2024 Notification of physician [facility] Start: 05-13-2024 Oxygen therapy [facility] Start: 05-13-2024 Providing care according to standard [facility] Start: 05-13-2024 Provision of activity privileges [facility] Start: 05-13-2024 Referral to occupational therapist [facility] Start: 05-13-2024 Referral to service [facility] Start: 05-13-2024 End: 05-13-2024 [facility] Start: 05-13-2024 Dual pressure spontaneous ventilation support [facility] Start: 05-13-2024 Verification routine [facility] Start: 05-13-2024 Admission procedure [facility] Start: 05-13-2024 Hospital admission, emergency, from emergency room, medical nature [facility] Start: 05-13-2024 End: 05-14-2024 [facility] Start: 05-13-2024 Consultation [facility] Start: 04-24-2024 Patient discharge [facility] Start: 04-21-2024 [facility] Start: 04-21-2024 Speech therapy assessment [facility] Start: 04-21-2024 Care planning and problem solving actions [facility] Start: 04-20-2024 Following clinical pathway protocol [facility] Start: 04-20-2024 Aspiration precautions [facility] Start: 04-20-2024 Assessment of risk of venous thromboembolism [facility] Start: 04-20-2024 Care regimes management [facility] Start: 04-20-2024 Elevation of head of bed [facility] Start: 04-20-2024 Fall prevention [facility] Start: 04-20-2024 Inhalation therapy procedure [facility] Start: 04-20-2024 Insertion of catheter into peripheral vein [facility] Start: 04-20-2024 Introduction of urinary catheter [facility] Start: 04-20-2024 Measuring intake and output [facility] Start: 04-20-2024 Notification of physician [facility] Start: 04-20-2024 Patient referral to dietitian [facility] Start: 04-20-2024 Providing care according to standard [facility] Start: 04-20-2024 Provision of activity privileges [facility] Start: 04-20-2024 Referral to occupational therapist [facility] Start: 04-20-2024 Referral to service [facility] Start: 04-20-2024 Vital signs measurements [facility] Start: 04-20-2024 End: 04-20-2024 [facility] Start: 04-20-2024 Dual pressure spontaneous ventilation support [facility] Start: 04-20-2024 Gas panel - Arterial blood [facility] Start: 04-20-2024 Serum inorganic phosphate measurement [facility] Start: 04-20-2024 Verification routine [facility] Start: 04-20-2024 Admission procedure [facility] Start: 04-20-2024 Hospital admission, emergency, from emergency room, medical nature [facility] Start: 04-20-2024 [facility] Start: 04-20-2024 [facility] Start: 04-20-2024 End: 04-20-2024 [facility] Start: 04-20-2024 Blood culture [facility] Start: 04-20-2024 Patient referral to dietitian [facility] Start: 02-17-2024 [facility] Start: 02-17-2024 Patient discharge [facility] Start: 02-16-2024 Speech therapy assessment [facility] Start: 02-15-2024 Speech therapy assessment [facility] Start: 02-14-2024 [facility] Start: 02-14-2024 Care planning and problem solving actions [facility] Start: 02-13-2024 End: 02-14-2024 Following clinical pathway protocol [facility] Start: 02-13-2024 Assessment of risk of venous thromboembolism [facility] Start: 02-13-2024 Care regimes management [facility] Start: 02-13-2024 Catheterization of vein [facility] Start: 02-13-2024 Elevation of head of bed [facility] Start: 02-13-2024 Incentive spirometry [facility] Start: 02-13-2024 Inhalation therapy procedure [facility] Start: 02-13-2024 Insertion of catheter into peripheral vein [facility] Start: 02-13-2024 Measuring intake and output [facility] Start: 02-13-2024 Notification of physician [facility] Start: 02-13-2024 Oxygen therapy [facility] Start: 02-13-2024 End: 02-14-2024 Patient referral to dietitian [facility] Start: 02-13-2024 Providing care according to standard [facility] Start: 02-13-2024 Referral to occupational therapist [facility] Start: 02-13-2024 Referral to service [facility] Start: 02-13-2024 Removal of urinary catheter [facility] Start: 02-13-2024 Vital signs measurements [facility] Start: 02-13-2024 End: 02-13-2024 [facility] Start: 02-13-2024 Admission procedure [facility] Start: 02-13-2024 Advance Directive Discussion Advance Directive Discussion [facility] Start: 02-13-2024 Medicare Advantage Annual Wellness Visit Medicare Advantage Annual Wellness Visit [facility] Start: 01-05-2024 Patient discharge [facility] Start: 01-03-2024 Removal of urinary catheter [facility] Start: 01-01-2024 Care planning and problem solving actions [facility] Start: 01-01-2024 Inhalation therapy procedure [facility] Start: 12-31-2023 [facility] Start: 12-30-2023 End: 12-31-2023 [facility] Start: 12-30-2023 Application of intermittent pneumatic compression device [facility] Start: 12-30-2023 Following clinical pathway protocol [facility] Start: 12-30-2023 Aspiration precautions [facility] Start: 12-30-2023 Assessment of risk of venous thromboembolism [facility] Start: 12-30-2023 Care regimes management [facility] Start: 12-30-2023 Elevation of head of bed [facility] Start: 12-30-2023 Fall prevention [facility] Start: 12-30-2023 Insertion of catheter into peripheral vein [facility] Start: 12-30-2023 Introduction of urinary catheter [facility] Start: 12-30-2023 Measuring intake and output [facility] Start: 12-30-2023 Methicillin resistant Staphylococcus aureus screening test [facility] Start: 12-30-2023 Notification of physician [facility] Start: 12-30-2023 Patient referral to dietitian [facility] Start: 12-30-2023 Providing care according to standard [facility] Start: 12-30-2023 Provision of activity privileges [facility] Start: 12-30-2023 Referral to geological scout [facility] Start: 12-30-2023 Referral to gastroenterology service [facility] Start: 12-30-2023 Referral to occupational therapist [facility] Start: 12-30-2023 Referral to service [facility] Start: 12-30-2023 Tobacco use cessation education [facility] Start: 12-30-2023 Vital signs measurements [facility] Start: 12-30-2023 Admission procedure [facility] Start: 12-30-2023 Dual pressure spontaneous ventilation support [facility] Start: 12-30-2023 Patient referral to dietitian [facility] Start: 12-28-2023 Hemoglobin A1c measurement Diabetes: Hemoglobin A1C [facility] Start: 10-14-2023 Covid-19 Vaccine () Covid-19 Vaccine () [facility] Start: 10-14-2023 Influenza vaccination [facility] Start: 10-05-2023 Diabetic foot examination [facility] Start: 10-05-2023 Hemoglobin A1c measurement [facility] Start: 09-05-2023 BP CONTROLLED (<130/80) BP CONTROLLED (<130/80) [facility] Start: 06-27-2023 Hemoglobin A1c measurement HbA1C [facility] Start: 05-22-2023 End: 05-22-2023 Patient encounter procedure 05/22/2023 3:20 PM EDT Office Visit [facility] [address] [place] [phone] Nicola Adhikari MD [address] [place] [address] [facility] Start: 05-22-2023 End: 05-20-2024 XR Femur - right 2 Views XR femur right 2+ views Imaging Routine Closed displaced intertrochanteric fracture of right femur with routine healing, subsequent encounter Expected: 05/22/2023, Expires: 05/20/2024 [facility] Work Phone: Comment on above: Expected: 05/22/2023, Expires: Start: 04-18-2023 Patient discharge [facility] Start: 04-17-2023 Care planning and problem solving actions [facility] Start: 04-15-2023 End: 04-15-2023 [facility] Start: 04-15-2023 Triacylglycerol lipase measurement [facility] Start: 04-14-2023 Following clinical pathway protocol [facility] Start: 04-14-2023 Application of intermittent pneumatic compression device [facility] Start: 04-14-2023 Aspiration precautions [facility] Start: 04-14-2023 Assessment of risk of venous thromboembolism [facility] Start: 04-14-2023 Care regimes management [facility] Start: 04-14-2023 Insertion of catheter into peripheral vein [facility] Start: 04-14-2023 Measuring intake and output [facility] Start: 04-14-2023 Notification of physician [facility] Start: 04-14-2023 Providing care according to standard [facility] Start: 04-14-2023 Provision of activity privileges [facility] Start: 04-14-2023 Referral to gastroenterology service [facility] Start: 04-14-2023 Referral to occupational therapist [facility] Start: 04-14-2023 Referral to service [facility] Start: 04-14-2023 [facility] Start: 04-14-2023 End: 04-14-2023 Blood culture [facility] Start: 04-14-2023 Verification routine [facility] Start: 04-14-2023 Admission procedure [facility] Start: 04-14-2023 Hospital admission, emergency, from emergency room, medical nature [facility] Start: 04-14-2023 End: 04-14-2023 [facility] Start: 04-14-2023 Patient referral to dietitian [facility] Start: 04-06-2023 Hemoglobin A1c/Hemoglobin.total in Blood HBA1C [facility] Start: 04-03-2023 End: 04-02-2024 XR Femur - right 2 Views XR femur right 2+ views Imaging Routine Closed displaced intertrochanteric fracture of right femur with routine healing, subsequent encounter Expected: 04/03/2023, Expires: 04/02/2024 [employer] Work Phone: Comment on above: Expected: 04/03/2023, Expires: Start: 04-03-2023 End: 04-03-2023 Patient encounter procedure 04/03/2023 1:30 PM EST Office Visit [facility] [address] [place] [address] [place] [phone] Nicola Adhikari MD [address] [place], [place] [id number] [facility] Start: 02-12-2023 Advance Directive Discussion Advance Directive Discussion [facility] Start: 02-12-2023 Medicare Advantage Annual Wellness Visit Medicare Advantage Annual Wellness Visit [facility] Start: 01-01-2023 End: 01-01-2023 Patient encounter procedure 01/01/2023 11:30 AM EST Office Visit [facility] [address] [place] [phone] Phyllis Guevara PA-C [address] [place] [address] [facility] Start: 12-29-2022 End: 12-30-2023 XR Hip - left 3 Views XR hip left 2 or 3 views Imaging Routine S/P total left hip arthroplasty Expected: 12/29/2022, Expires: 12/30/2023 [facility] Work Phone: Comment on above: Expected: 12/29/2022, Expires: Start: 12-25-2022 End: 12-25-2022 Patient encounter procedure 12/25/2022 11:00 AM EST Office Visit [facility] [address] [place] [phone] Phyllis Guevara PA-C [address] [place] [address] [facility] Start: 12-23-2022 [facility] Start: 12-23-2022 [facility] Start: 11-06-2022 End: 01-06-2023 FLOW CYTOMETRY FOR LEUKEMIA/LYMPHOMA (FCLL) FLOW CYTOMETRY FOR LEUKEMIA/LYMPHOMA (FCLL) Lab Routine Lymphocytosis Expected: 11/06/2022, Expires: 01/06/[address] [facility] Work Phone: Comment on above: Expected: 11/06/2022, Expires: 3 Start: 11-06-2022 End: 11-06-2022 ambulatory [facility] Start: 11-06-2022 End: 11-06-2022 Patient encounter procedure 11/06/2022 1:30 PM EDT Office Visit [facility] [address] [place] [phone] Phyllis Guevara PA-C [address] [place] [address] [facility] Start: 10-13-2022 COVID-19 Vaccine ( season) COVID-19 Vaccine () [facility] Start: 10-13-2022 Influenza vaccination [facility] Start: 10-13-2022 [facility] Start: 10-03-2022 End: 12-03-2022 CBC W Ordered Manual Differential panel - Blood PATHOLOGIST INTERPRETATION WITH CBC AND DIFF Lab Routine 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 Expected: 10/03/2022, Expires: 12/03/[address] [facility] Work Phone: Comment on above: Expected: 10/03/2022, Expires: 3 Start: 10-03-2022 End: 12-03-2022 FLOW CYTOMETRY FOR LEUKEMIA/LYMPHOMA (FCLL) FLOW CYTOMETRY FOR LEUKEMIA/LYMPHOMA (FCLL) Lab Routine 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 Expected: 10/03/2022, Expires: 12/03/[address] [facility] Work Phone: Comment on above: Expected: 10/03/2022, Expires: 3 Start: 10-03-2022 End: 12-03-2022 Immunodeficiency panel - Blood by Flow cytometry (FC) IMMUNODEFICIENCY CDC Lab Routine 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 Expected: 10/03/2022, Expires: 12/03/[address] [facility] Work Phone: Comment on above: Expected: 10/03/2022, Expires: 3 Start: 10-03-2022 End: 12-03-2022 T CELL PANEL (GAMMA, BETA) T CELL PANEL (GAMMA, BETA) Lab Routine 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 Expected: 10/03/2022, Expires: 12/03/[address] [facility] Work Phone: Comment on above: Expected: 10/03/2022, Expires: 3 Start: 09-18-2022 Diagnostic bone marrow biopsies & aspirations DX BONE MARROW BX & ASPIR [facility] Start: 09-18-2022 Procedure [facility] Start: 09-18-2022 Catheterization of vein [facility] Start: 09-18-2022 Patient discharge [facility] Start: 09-18-2022 Vital signs measurements [facility] Start: 09-18-2022 Oxygen therapy [facility] Start: 09-18-2022 Following clinical pathway protocol [facility] Start: 08-16-2022 Patient discharge [facility] Start: 08-16-2022 Radiologic examination, osseous survey, complete Bone Survey Comp(Axial&Append) [facility] Start: 08-16-2022 XR Bones Survey Views [facility] Start: 08-16-2022 MRI of thoracic spine with contrast [facility] Start: 08-16-2022 MRI of cervical spine with contrast Spine Cervical W/WO Contrast [facility] Start: 08-16-2022 MRI of lumbar spine with contrast Spine Lumbar W/WO Contrast [facility] Start: 08-16-2022 Urine protein electrophoresis [facility] Start: 08-16-2022 Serum immunofixation [facility] Start: 08-15-2022 End: 08-15-2022 Consultation [facility] Start: 08-15-2022 Physiotherapy of chest [facility] Start: 08-14-2022 Bacterial culture Body Fluid Culture [facility] Start: 08-14-2022 Consultation [facility] Start: 08-14-2022 Vital signs measurements [facility] Start: 08-14-2022 [facility] Start: 08-10-2022 Administration of blood product [facility] Start: 08-07-2022 Cardiac monitoring [facility] Start: 08-07-2022 Catheterization of vein [facility] Start: 08-07-2022 Elevation of head of bed [facility] Start: 08-07-2022 Exercises [facility] Start: 08-07-2022 Implementation of planned interventions [facility] Start: 08-07-2022 Notification of physician [facility] Start: 08-07-2022 Oxygen therapy [facility] Start: 08-07-2022 Referral to occupational therapist [facility] Start: 08-07-2022 Referral to service [facility] Start: 08-07-2022 Speech therapy assessment [facility] Start: 08-07-2022 Tobacco use cessation education [facility] Start: 08-07-2022 End: 08-07-2022 [facility] Start: 08-07-2022 End: 08-07-2022 Administration of blood product [facility] Start: 08-07-2022 [facility] Start: 08-06-2022 End: 08-06-2022 Measuring intake and output [facility] Start: 08-06-2022 Care regimes management [facility] Start: 08-06-2022 Notification of physician [facility] Start: 08-06-2022 [facility] Start: 08-06-2022 End: 08-06-2022 [facility] Start: 08-06-2022 Ambulation therapy management [facility] Start: 08-06-2022 Application of device [facility] Start: 08-06-2022 Exercises [facility] Start: 08-06-2022 Following clinical pathway protocol [facility] Start: 08-06-2022 Introduction of urinary catheter [facility] Start: 08-06-2022 Neurovascular assessment [facility] Start: 08-06-2022 Patient education [facility] Start: 08-06-2022 Provision of activity privileges [facility] Start: 08-06-2022 Referral to occupational therapist [facility] Start: 08-06-2022 Referral to service [facility] Start: 08-06-2022 Vital signs measurements [facility] Start: 08-06-2022 Wound care [facility] Start: 08-06-2022 End: 08-06-2022 Measuring intake and output [facility] Start: 08-06-2022 End: 08-06-2022 Measuring intake and output [facility] Start: 08-05-2022 Application of intermittent pneumatic compression device [facility] Start: 08-05-2022 Following clinical pathway protocol [facility] Start: 08-05-2022 Assessment of risk of venous thromboembolism [facility] Start: 08-05-2022 Catheterization of vein [facility] Start: 08-05-2022 Insertion of catheter into peripheral vein [facility] Start: 08-05-2022 Providing care according to standard [facility] Start: 08-05-2022 Recommendation to continue with treatment [facility] Start: 08-05-2022 Referral to service [facility] Start: 08-05-2022 Vitamin D, 25-hydroxy measurement [facility] Start: 08-05-2022 End: 08-05-2022 Measuring intake and output [facility] Start: 08-05-2022 End: 08-05-2022 [facility] Start: 08-05-2022 End: 08-05-2022 Application of ice collar, cap or bag [facility] Start: 08-05-2022 End: 08-05-2022 Bedrest [facility] Start: 08-05-2022 End: 08-05-2022 Neurovascular assessment [facility] Start: 08-05-2022 End: 08-05-2022 Skin care [facility] Start: 08-05-2022 Verification routine [facility] Start: 08-05-2022 Admission procedure [facility] Start: 08-05-2022 [facility] Start: 08-05-2022 Consultation [facility] Start: 08-05-2022 [facility] Start: 07-07-2022 Patient referral [facility] Work Phone: Start: 02-12-2022 ADVANCE DIRECTIVE DISCUSSION ADVANCE DIRECTIVE DISCUSSION [facility] Start: 12-12-2019 Pneumococcal Vaccine: 50+ (3 of 3 - PCV20 or PCV21) Pneumococcal Vaccine: 50+ (3 of 3 - PCV20 or PCV21) [facility] Start: 2018 BONE DENSITY BONE DENSITY [facility] Start: 2018 Bone Density Screening Bone Density Screening [facility] Start: 2018 Pneumococcal Vaccine: 65+ (3 of 3 - PPSV23 or PCV20) Pneumococcal Vaccine: 65+ (3 of 3 - PPSV23 or PCV20) [facility] Start: 2018 Pneumococcal Vaccine: 65+ Years (3 - PPSV23 if available, else PCV20) Pneumococcal Vaccine: 65+ Years (3 - PPSV23 if available, else PCV20) [facility] Start: 2018 Pneumococcal Vaccine: 65+ Years (3 - PPSV23 or PCV20) Pneumococcal Vaccine: 65+ Years (3 - PPSV23 or PCV20) [facility] Start: 2018 Pneumococcal Vaccine: 65+ Years (3 of 3 - PPSV23 or PCV20) Pneumococcal Vaccine: 65+ Years (3 of 3 - PPSV23 or PCV20) [facility] Start: 2018 Screening for osteoporosis Bone Density Screening [facility] Start: 2018 [facility] Start: 10-02-2018 Hepatitis B surface antibody level LDL CHOLESTEROL [facility] Start: 2013 Hepatitis B Vaccine (1 of 3 - Risk 3-dose series) Hepatitis B Vaccine (1 of 3 - Risk 3-dose series) [facility] Start: 2013 RSV Immunization aged 60 or older (1 - 1-dose 60+ series) RSV Immunization aged 60 or older (1 - 1-dose 60+ series) [facility] Start: 2013 RSV Vaccine (1 - 1-dose 60+ series) RSV Vaccine (1 - 1-dose 60+ series) [facility] Start: 2013 [facility] Start: 01-14-2013 Glaucoma screening Dilated Retinal Exam [facility] Start: 01-14-2013 Hepatitis C antibody, confirmatory test DILATED RETINAL EXAM [facility] Start: 11-02-2012 3 comp foot exam completed DIABETIC FOOT EXAM [facility] Start: 11-02-2012 Diabetic foot examination Diabetic Foot Exam [facility] Start: 11-02-2012 Hepatitis B screening URINE ALBUMIN:CREATININE RATIO [facility] Start: 09-08-2012 Hemoglobin A1c/Hemoglobin.total in Blood HBA1C [facility] Start: 07-27-2009 Colonoscopy COLONOSCOPY [facility] Start: 07-27-2009 COLORECTAL CANCER SCREENING COLORECTAL CANCER SCREENING [facility] Start: 07-27-2009 Mammography [facility] Start: 07-27-2009 Screening for malignant neoplasm of breast Mammogram Screening [facility] Start: 07-27-2009 Screening for malignant neoplasm of colon [facility] Start: 02-20-2008 Pneumococcal Vaccine: 65+ (2 - PCV) Pneumococcal Vaccine: 65+ (2 - PCV) [facility] Start: 02-20-2008 PNEUMOCOCCAL: 65+ (2 - PCV) PNEUMOCOCCAL: 65+ (2 - PCV) [facility] Start: 10-25-2003 SHINGRIX VACCINE (1 of 2) SHINGRIX VACCINE (1 of 2) [facility] Start: 10-25-2003 [facility] Start: 1998 COLOGUARD (FIT-DNA) COLOGUARD (FIT-DNA) [facility] Start: [address] COLONOGRAPHY [facility] Start: 1998 FECAL OCCULT BLOOD FECAL OCCULT BLOOD [facility] Start: 1998 Screening for malignant neoplasm of colon [facility] Start: 1998 SIGMOIDOSCOPY SIGMOIDOSCOPY [facility] Start: 1993 Screening for malignant neoplasm of breast [facility] Start: 1972 Urine microalbumin profile [facility] Start: 1972 [facility] Start: 10-25-1971 ANNUAL PCP TEAM CHRONIC DISEASE VISIT ANNUAL PCP TEAM CHRONIC DISEASE VISIT [facility] Start: 10-25-1971 BP CONTROLLED (<130/80) BP CONTROLLED (<130/80) [facility] Start: 10-25-1971 HEPATITIS C SCREENING HEPATITIS C SCREENING [facility] Start: 10-25-1971 Hepatitis C screening [facility] Start: 1965 Depression Screening Depression Screening [facility] Start: 1965 Depresssion Monitoring Depresssion Monitoring [facility] Start: 1965 [facility] Start: 10-25-1963 Glaucoma screening [facility] Start: 10-25-1963 Preventive dental service [facility] Start: 04-23-1954 COVID-19 VACCINE (#1) COVID-19 VACCINE (#1) [facility] Start: 04-23-1954 [facility] Start: 1953 Lipid panel [facility] Start: 1953 Medicare Advantage Annual Wellness Visit (AWV) Medicare Advantage Annual Wellness Visit (AWV) [facility] Start: 1953 Screening for malignant neoplasm of colon [facility] Start: 1953 Screening for osteoporosis [facility] Start: 1953 [facility] Aerobic and Anaerobi c Culture with Stain [facility] [employer] Work Phone: Aerobic and Anaerobi c Culture with Stain [facility] Albumin [Moles/volum e] in Serum or Plasma [facility] Albumin/Globulin ratio [facility] Bacteria identified in Unspecified specimen by Anaerobe culture [facility] Bacteria identified in Unspecified specimen by Anaerobe culture [facility] Bacteria identified in Urine by Culture [facility] End: 09-10-2025 BD DXA TRABECULAR BONE SCORE (TBS) BD DXA TRABECULAR BONE SCORE (TBS) Radiology Routine Osteoporosis without current pathological fracture, unspecified osteoporosis type 1 Occurrences starting 08/11/2024 until 09/10/2025 [facility] Comment on above: 1 Occurrences starting 08/11/2024 until 09/10/2025 Cancer Ag 125 [Units/volume] in Serum or Plasma [facility] Cancer Ag 19-9 [Units/volume] in Serum or Plasma [facility] Carcinoembryonic Ag [Mass/volume] in Serum or Plasma [facility] CT Abdomen and Pelvi s W contrast IV [facility] Cytology report of B troy fluid Cyto stain [facility] End: 09-10-2025 DXA Skeletal system.axial Views for bone density and vertebral fracture DXA-AXIAL SKELETON WITH VFA Radiology Routine Osteoporosis without current pathological fracture, unspecified osteoporosis type 1 Occurrences starting 08/11/2024 until 09/10/2025 [facility] Comment on above: 1 Occurrences starting 08/11/2024 until 09/10/2025 Electrophoresis: [id number] [facility] Electrophoresis: [id number] [facility] Electrophoresis: hollie ma globulin [facility] Fluid sample globuli n level [facility] Globulin measurement [facility] Globulin measurement [facility] IgA [Mass/volume] in Serum or Plasma [facility] IgG [Mass/volume] in Serum or Plasma [facility] IgM [Mass/volume] in Serum or Plasma [facility] Lactic acid measurement [facility] Magnesium measurement [facility] Measurement of monoclonal protein concentration [facility] Microscopic observat ion [Identifier] in Unspecified specimen by Acid fast stain [facility] OUTSIDE PROCEDURE SCAN OUTSIDE P ROCEDURE SCAN Procedures Ordered: 10/03/2022 [facility] Comment on above: Ordered: 10/03/2022 Patient Education [facility] Work Phone: Patient referral [facility] Work Phone: Protein [Mass/volume ] in Urine [facility] Protein electrophore sis panel - Serum or Plasma [facility] Protein measurement, urine [facility] Serum protein electrophoresis [facility] Tissue exam [facility] Urine albumin measurement [facility] Urine culture [facility] End: 12-23-2022 US TRAUMA FAST POCUS [facility] Work Phone: [facility] Immunizations Immunization Date Immunization Notes Care Provider Fa [facility] 05-13-2024 tetanus toxoid, redu lilibeth diphtheria toxoid, and acellular pertussis vaccine, adsorbed Rudy CARLISLE Work Phone: [facility] 02-09-[address] Cici Calderon Work Phone: [facility] 08-25-[address] Cici Calderon Work Phone: [facility] 03-06-2019 tetanus toxoid, redu lilibeth diphtheria toxoid, and acellular pertussis vaccine, adsorbed [facility] 12-31-2018 Influenza virus vaccine [facility] 12-31-2018 influenza, seasonal, injectable, preservative free Phyllis Guevara PA-C Work Phone: [facility] 12-31-2018 influenza virus vacc ine, unspecified formulation Cici Martinez MD Work Phone: [facility] 12-11-2014 pneumococcal conjuga te vaccine, [address] Cici Calderon Work Phone: [facility] 11-18-2010 influenza virus vacc ine, unspecified formulation Regina Oden DO Work Phone: [facility] Work Phone: 11-26-2009 influenza virus vacc ine, unspecified formulation Regina Oden DO Work Phone: [facility] Work Phone: 02-19-2007 pneumococcal polysaccharide vaccine, 23 valent Regina Oden DO Work Phone: [facility] Work Phone: 01-29-2007 influenza virus vacc jennifer, unspecified formulation Regina Oden DO Work Phone: [facility] Work Phone: NEGATED: Highlighted row has not occurred!12-24-2022 Esteban Hawley MD Work Phone: [facility] Comment on above: Deferred: Contraindi cation Payers Date Payer Category Payer Unknown [id number] 2023 Self-pay [id number] 2023 Medicare (Managed Care) 1.2. [id number] 315 2023 Unknown [id number] 2022 Medicare [id number] 2022 Private Health Insurance [id number] 2020 Medicaid [id number] 2020 Unknown [id number] 2019 Medicaid [id number] 2006 Medicare [id number] Private Health Insurance Unknown [id number] 2.16.8 40.1.423628.3.579.2.462 Unknown [id number] 2.16.8 40.1.039223.3.579.2.462 Unknown [id number] 2.16.8 40.1.640734.3.579.2.462 Unknown [id number] 2.16.8 40.1.108460.3.579.2.462 Unknown [id number] 2.16.8 40.1.904495.3.579.2.462 Unknown [id number] 2.16.8 40.1.556925.3.579.2.462 Unknown [id number] 2.16.8 40.1.342416.3.579.2.462 Unknown [id number] 2.16.8 40.1.407239.3.579.2.462 Unknown [id number] 2.16.8 40.1.431435.3.579.2.462 Unknown [id number] 2.16.8 40.1.167105.3.579.2.462 Unknown [id number] 2.16.8 40.1.929538.3.579.2.462 Unknown [id number] 2.16.8 40.1.316665.3.579.2.462 Unknown [id number] 2.16.8 40.1.273833.3.579.2.462 Unknown [id number] 2.16.8 40.1.883536.3.579.2.462 Unknown [id number] 2.16.8 40.1.254545.3.579.2.462 Unknown [id number] 2.16.8 40.1.440916.3.579.2.462 Unknown [id number] 2.16.8 40.1.625497.3.579.2.462 Unknown [id number] 2.16.8 40.1.909017.3.579.2.462 Unknown [id number] 2.16.8 40.1.274975.3.579.2.462 Unknown [id number] 2.16.8 40.1.973199.3.579.2.462 Unknown [id number] 2.16.8 40.1.425496.3.579.2.462 Unknown [id number] 2.16.8 40.1.220386.3.579.2.462 Unknown [id number] 2.16.8 40.1.989084.3.579.2.462 Unknown [id number] 2.16.8 40.1.129940.3.579.2.462 Unknown [id number] 2.16.8 40.1.147149.3.579.2.462 Unknown [id number] 2.16.8 40.1.603931.3.579.2.462 Unknown [id number] 2.16.8 40.1.806388.3.579.2.462 Unknown [id number] 2.16.8 40.1.129931.3.579.2.462 Unknown [id number] 2.16.8 40.1.106491.3.579.2.462 Unknown [id number] 2.16.8 40.1.855113.3.579.2.462 Unknown [id number] 2.16.8 40.1.347495.3.579.2.462 Unknown [id number] 2.16.8 40.1.762607.3.579.2.462 Unknown [id number] 2.16.8 40.1.908005.3.579.2.462 Unknown [id number] 2.16.8 40.1.519817.3.579.2.462 Unknown [id number] 2.16.8 40.1.286365.3.579.2.462 Unknown [id number] 2.16.8 40.1.556150.3.579.2.462 Unknown [id number] 2.16.8 40.1.649055.3.579.2.462 Unknown [id number] 2.16.8 40.1.695176.3.579.2.462 Unknown [id number] 2.16.8 40.1.821012.3.579.2.462 Unknown [id number] 2.16.8 40.1.686058.3.579.2.462 Unknown [id number] 2.16.8 40.1.237153.3.579.2.462 Unknown [id number] 2.16.8 40.1.480239.3.579.2.462 Unknown [id number] 2.16.8 40.1.407470.3.579.2.462 Unknown [id number] 2.16.8 40.1.719305.3.579.2.462 Unknown [id number] 2.16.8 40.1.687303.3.579.2.462 Unknown [id number] 2.16.8 40.1.090265.3.579.2.462 Unknown [id number] 2.16.8 40.1.494564.3.579.2.462 Unknown [id number] 2.16.8 40.1.257372.3.579.2.462 Unknown [id number] 2.16.8 40.1.764406.3.579.2.462 Unknown [id number] 2.16.8 40.1.669524.3.579.2.462 Unknown [id number] 2.16.8 40.1.095281.3.579.2.462 Unknown [id number] 2.16.8 40.1.832480.3.579.2.462 Unknown [id number] 2.16.8 40.1.474098.3.579.2.462 Unknown [id number] 2.16.8 40.1.176943.3.579.2.462 Social History Date Type Detail Facility Start: 12-18-2019 End: 04-14-2023 Tobacco smoking status NHIS Unknown if ever smoked [facility] Start: 02-12-2019 None [facility] Start: 03-06-2019 Spouse/ Signif icant Other [facility] Start: 02-12-2019 Cigarettes [facility] Start: 1955 Sex Assigned At Female [facility] Start: 11-03-2011 End: 08-11-2024 Tobacco smoking status NHIS Ex-smoker [facility] Work Phone: Start: 07-05-1973 End: 07-26-2022 History of tobacco use Current smoker [facility] Work Phone: Start: 07-05-1973 End: 07-26-2022 History of tobacco use Cigarette Smoker [facility] Work Phone: Start: 11-03-2011 End: 09-04-2022 Cigarettes smoked current (pack per day) - Reported 0.5 [facility] Start: 11-03-2011 End: 08-11-2024 Tobacco use and exposure Smokeless tobacco non-user [facility] Work Phone: Start: 12-02-2018 End: 08-11-2024 Alcohol intake Current non-drinker of alcohol (finding) [facility] Start: 1955 Sex Assigned At Not on file [facility] Start: 11-12-2017 End: 09-04-2022 Gender identity Not on file [facility] Adult Depression Screening Assessment 4 [facility] Start: 10-03-2022 Tobacco smoking status NHIS Never smoked tobacco [facility] Within the last year , have you been afraid of your partner or ex-partner? No [facility] How often to you hav e a drink containing alcohol? Never [facility] Start: 09-23-2022 End: 10-03-2022 Exposure to SARS-CoV-2 (event) Not sure [facility] Start: 04-20-2024 End: 05-17-2024 Sex Female (finding) [facility] NEGATED: Highlighted row [facility] NEGATED: Highlighted row [facility] Medical Equipment Procedure Code Equipment Code Equipment Origin al Text Equipment Identifier Dates ORIF, hip, using Gamma nail ([id number]) ()[id number]( [id number] FDA Start: 08-06-2022 ORIF, hip, using Gamma nail ([id number]) ()[id number]( [id number] FDA Start: 08-06-2022 ORIF, hip, using Gamma nail ([id number]) ()[id number] C FDA Start: 08-06-2022 Cement Kyphx Hv- R 30% Barium Sulfate Pmma Bone Powder Mix Body Dispense - [id number] Start: 04-16-2018 [id number] Start: 10-10-2022 [id number] Start: 10-10-2022 [id number] Start: 10-10-2022 [id number] Start: 10-10-2022 [id number] Start: 10-10-2022 53200_imp Start: 10-10-2022 ()[id number], [id number]_imp FDA Start: 12-27-2022 ()[id number] 767, 65429_imp FDA Start: 12-27-2022 [id number] Start: 12-23-2022 50mm Od Redapt Modular Shell [id number]_imp Start: 10-10-2022 Oxinium Dh Dual Mobility Liner [id number]_imp Start: 10-10-2022 Stem Distal Kanosh s Spl [id number] - [id number] Start: 10-10-2022 Body Prox Josh C Std 60mm - [id number] Start: 10-10-2022 Redapt 25mm Locking Screw [id number] Start: 10-10-2022 Redapt 20mm Locking Screw [id number] Start: 10-10-2022 Screw Acet 6.5x25mm Sphere - [id number] Start: 10-10-2022 Screw Acet 6.5x40mm Sphere - [id number] Start: 10-10-2022 Kit Scr 90mm 4.5 mm Intertan - [id number] ()[id number] [id number], [id number]_imp FDA Start: 12-27-2022 Screw Bn 5mm 37.5mm Trgn Fem - [id number] ()[id number] 968, [id number]_imp FDA Start: 12-27-2022 Goals Date Patient Goal Desired Activity /State Functional Status Date Assessment Result Facility 05-17-2024 Functional status Ambulates [facility] Work Phone: 04-24-2024 Functional status Chair [facility] Work Phone: 02-17-2024 Functional status Chair [facility] Work Phone: 01-05-2024 Functional status Bedrest [facility] Work Phone: 04-18-2023 Functional status Ambulates;Bathroom Priv ilege [facility] Work Phone: 09-18-2022 Functional status Dependent/Unable [facility] Work Phone: 08-16-2022 Functional status Ambulates;Chair [facility] Work Phone: Mental Status Date Assessment Result Facility 05-17-2024 Cognitive function Voice/Name [facility] Work Phone: 04-24-2024 Cognitive function Voice/Name [facility] Work Phone: 04-20-2024 Cognitive function Voice/Name [facility] Work Phone: 02-17-2024 Cognitive function Voice/Name [facility] Work Phone: 01-05-2024 Cognitive function Voice/Name [facility] Work Phone: 01-05-2024 Cognitive function Appropriate;Cooperativ e [facility] Work Phone: 04-18-2023 Cognitive function Voice/Name [facility] Work Phone: 09-18-2022 Cognitive function Voice/Name [facility] Work Phone: 08-16-2022 Cognitive function Voice/Name [facility] Work Phone: 08-14-2022 Cognitive function Level Of Cons ciousness Awake;Alert;Appropriate;Follow s Commands [facility] Work Phone: Clinical Notes 07-27-2008 to 08-11-2024 Patient InstructionsJeromy Lai MD - 08/11/2024 10:12 AM EDRegina Shirley DO - 06/20/2024 12:06 PM EDTTelephone Padmini - Terrie Lowery - 06/10/2024 12:31 PM EDT Note Date & Type Note Facility 08-11-2024 Instructions Jeromy Lai MD - 08/11/2024 10:46 AM EDT Please do labs after overnight fast at 8 am to 10 am- hold any biotin supplements for atleast 3 days before lab draw Schedule for bone density scan BONE MINERAL DENSITY PATIENT INSTRUCTIONS ======== Bone mineral density testing measures the amount [...] you can resume your usual activities immediately. documented in this encounter [facility] 08-11-2024 Note HNO ID: [id number] Author: JEROMY LAI MD Service: ? Author Type: Physician Type: Progress Notes Filed: 08/11/2024 17:40 Note Text: Endocrinology and Metabolism [place] [facility] Visit Note NAME: Donna Marsh is a 68 year old old female PCP: Rudy Boyer NP Requesting Provider: Regina Oden MD [address] [facility] [address] My final recommendations will be communicated back to the requesting physician by way of shared medical record or letter via [place] mail. Chief Complaint: HPI: Donna Marsh is a 68 year old female here [...] be continuing, while chart review from Dr. Oden's documentation shows that she was advised by [...] has weaned off Pepsi and now consumes [place] iced tea. Alcohol use: no Use of [...] Cancer history: no- she has seen Dr. Oden and all the work up for cancer [...] with removal of old mesh TONSILLECTOMY PRIMARY/SECONDARY Tonsillectomy TOTAL ABDOMINAL HYSTERECT W/WO RMVL TUBE OVARY 02/12/1982 and bladder sling; BENIGN (fibroids) Current Outpatient Medications on File Prior to Visit Medication Sig busPIRone (BUSPAR) 7.5 mg tablet Take by mouth. fexofenadine (ROC) 180 mg tablet Take by mouth on (more content not included)... [facility] 08-11-2024 History of Present illness Narrative Endocrinology and Metabolism [place] [facility] Visit Note NAME: Donna Marsh is a 68 year old old female PCP: Rudy Boyer NP Requesting Provider: Regina Oden MD [address] [facility] [address] My final recommendations will be communicated back to the requesting physician by way of shared medical record or letter via [place] mail. Chief Complaint: HPI: Donna Marsh is a 68 year old female here [...] be continuing, while chart review from Dr. Oden's documentation shows that she was advised by [...] has weaned off Pepsi and now consumes [place] iced tea. Alcohol use: no Use of [...] Cancer history: no- she has seen Dr. Oden and all the work up for cancer [...] L5; follows with DR. LINDSEY Morbid obesity ([facility]) since quit smoking Osteopenia Osteoporosis Type II or unspecified type diabetes mellitus without mention of complication, not stated as uncontrolled late Unspecified essential hypertension late 38 Unspecified urinary incontinence late 40 urgency AND stress-induced PAST SURGICAL HISTORY Procedure Laterality Date EXC LESION TDN SHTH/JT CAPSL HAND/FNGR Right 04/16/2015 Right index trigger finger release FASCIOTOMY PALMAR OPEN PARTIAL Right 07/02/2015 Dupuytren's contracture excision HIP SURGERY HX Left 07/2022 INCISE FINGER TENDON SHEATH Right 07/02/2015 Right ring trigger finger release NEUROPLASTY &/TRANSPOSITION ULNAR NERVE ELBOW Right 07/02/2015 Right elbow [...] mouth two times a day. Vitamin A & D2 1,250-135 unit cap Take 1 tablet by mouth once daily. gabapentin (NEURONTIN) 300 mg capsule Take 300 mg by mouth three times a day. hydrOXYzine pamoate (VISTARIL) 25 mg capsule Take 25 mg by mouth three times a day as needed. aluminum & magnesium hydroxide-simethicone (MAG-AL PLUS EXTRA STRENGTH) 400-400-40 [...] Size: Large Adult) Pulse 70 Temp 36.4 C (97.5 F) (Temporal Artery) Resp 12 Wt 65.5 kg (144 lb 6.4 oz) SpO2 95% BMI 26.49 kg/m Body mass index is 26.49 kg/m . General: WNWD, NAD, using walker to ambulate Eyes: conjunctivae are pink, and moist. No exopthalmos, lag, or stare Neck: no thyromegaly or cervical LAD Lymphatic: no cervical or supraclavicular adenopathy Cardiovascular: regular rate Respiratory: unlabored breathing on room air Gastrointestinal: soft, non-tender, normal bowel sounds, no hepatosplenomegaly Musculoskeletal: normal muscle mass, no lower extremity swelling Skin: normal, no rashes present Neurologic: DTR s normal with normal recovery phase, EOMI, no [...] 8 eGFR >60.0 mL/min/1.73m*2 >90.0 Latest Ref Rng 06/20/2024 Albumin 3.43 - 5.41 g/dL 4.01 [...] Electro) Reviewed by Yayo Babb M.D. Result ([facility]) No M protein is identified. No M protein is identified. Staff Review ([facility]) Reviewed by Yayo Babb M.D. Protein, Urine [...] per documentation. No DXA scan done at [facility] or [facility] where are PCP is located Assessment/plan: Donna Marsh is a 68 year old female who [...] which included preparing to see the patient, [id number] patient care, completing clinical documentation, obtaining and/or reviewing separately obtained history, performing a medically appropriate examination, counseling and educating the patient/family/caregiver, ordering medications, tests, or procedures, independently interpreting results (not separately reported), and communicating results to the patient/family/caregiver. Jeromy Lai MD Endocrinology Associate Staff [facility] Endocrinology and Metabolism [place] [phone] Medical Decision Making: Medical Decision Making Level: 1 - N/A documented in this encounter [facility] 06-20-2024 Note HNO ID: [id number] Author: REGINA ODEN, DO Service: ? Author Type: Physician Type: Progress Notes Filed: 06/20/2024 17:14 Note Text: HPI: The patient is a 68-year-old female with a past medical history significant for atrial fibrillation, bipolar disorder, dementia, depression, hypertension, previous smoker, GERD, right-sided hearing loss, hiatal hernia, high cholesterol, irritable bowel, migraine, CAD (non-ST elevation [place] 01/06/2018), psoriatic arthritis, sleep apnea, osteoporosis, Takotsubo syndrome and type 2 diabetes. Patient was admitted to [facility] on 08/05/2022 following a mechanical fall in [...] by Gallito Crisostomo MD on 08/13/[address]/Chest without Contrast IMPRESSION: Cardiomegaly with pulmonary [...] Increased soft tissue density in the lateral (more content not included)... [facility] 06-20-2024 History of Present illness Narrative HPI: The patient is a 68-year-old female with a past medical history significant for atrial fibrillation, bipolar disorder, dementia, depression, hypertension, previous smoker, GERD, right-sided hearing loss, hiatal hernia, high cholesterol, irritable bowel, migraine, CAD (non-ST elevation [place] 01/06/2018), psoriatic arthritis, sleep apnea, osteoporosis, Takotsubo syndrome and type 2 diabetes. Patient was admitted to [facility] on 08/05/2022 following a mechanical fall in [...] by Gallito Crisostomo MD on 08/13/[address]/Chest without Contrast IMPRESSION: Cardiomegaly with pulmonary [...] thoracentesis. She is at the [facility] in skilled care. She was told by [...] that was negative. This was done at [facility]. CT guided bone marrow biopsy of lytic [...] of complication, not stated as uncontrolled late 40' Unspecified essential hypertension late 40's Unspecified urinary incontinence late 40's urgency AND stress-induced PAST SURGICAL HISTORY Procedure Laterality Date EXC LESION TDN SHTH/JT CAPSL HAND/FNGR Right 04/16/2015 Right index trigger finger release FASCIOTOMY PALMAR OPEN PARTIAL Right 07/02/2015 Dupuytren's contracture excision HIP SURGERY HX Left 07/2022 INCISE FINGER TENDON SHEATH Right 07/02/2015 Right ring trigger finger release NEUROPLASTY &/TRANSPOSITION ULNAR NERVE ELBOW Right 07/02/2015 Right elbow [...] Blood pressure 129/75, pulse 77, temperature 36.3 C (97.3 F), temperature source Temporal, height 157.3 cm (5' [...] Rhythm is regular. BREAST: Family acted as digital business analyst. No suspicious mass or nodule bilaterally. ABDOMEN: The abdomen is nondistended. No splenomegaly or hepatomegaly. No tenderness. Extremities: No swelling or edema. SKIN: No jaundice or rash. No petechiae. NEUROLOGIC: arborist II-XII are grossly intact. Resolved right-sided foot drop. MUSCULOSKELETAL: Generalized muscle wasting. LABS: Serum electrophoresis and immunofixation demonstrated no evidence of monoclonal protein by electrophoresis. Immunofixation negative. Test performed at [facility] 08/16/2022. UA x2 while at [facility] on 08/07 and 08/13 were both negative [...] density testing on her in either the [facility] or [facility] system. -I reviewed the bone marrow biopsy [...] see the patient (reviewing electronic record via [facility] system), [id number] patient care, completing clinical documentation, counseling and educating the patient/family/caregiver, ordering medications, tests, or procedures, communicating with other HCPs (not separately reported), and communicating results to the patient/family/caregiver. Regina Oden DO documented in this encounter [facility] 06-10-2024 Telephone encounter Note Spoke with [facility] and scheduled lab and est complex ov Terrie Lowery [facility] 06-10-2024 Miscellaneous Notes Spoke with [facility] and scheduled lab and est complex ov Terrie Lowery PSS- please contact [facility] [phone] to get patient scheduled for an est complex OV with Dr. Oden. Will also need a lab appointment for a CBC prior to OV that same day. Cristina Graham LPN Yes, establish complex please. CBC. Regina Oden DO Patient has not seen oncology since last here. All imaging since last here printed and placed in Dr. Oden's mailbox for review. I also placed the biopsy results from 09/18/[address] Oden's mailbox. Est complex OV? Cristina Graham LPN [facility] was placed on hold. Sent fax to nurses telling them we saw patient once in 2022 (then twice in 2009 prior for a different diagnosis). I asked them if there was a reason they thought she needed to be seen. Will await communication back from [facility]. Katalina You LPN [facility] from [facility] called stating that patient is back with them at this time. She is asking if patient needed a follow up with Dr. Oden. Patient was here in 2022. Please call Jeannie at [phone] documented in this encounter [facility] 06-10-2024 Telephone encounter Note PSS- please contact [facility] [phone] to get patient scheduled for an est complex OV with Dr. Oden. Will also need a lab appointment for a CBC prior to OV that same day. Cristina Graham LPN [facility] 06-10-2024 Telephone encounter Note Yes, establish complex please. CBC. Regina Oden DO [facility] 06-10-2024 Telephone encounter Note Patient has not seen oncology since last here. All imaging since last here printed and placed in Dr. Oden's mailbox for review. I also placed the biopsy results from 09/18/[address] Oden's mailbox. Est complex OV? Cristina Graham LPN T [facility] 05-29-2024 Telephone encounter Note Called [facility] was placed on hold. Sent fax to nurses telling them we saw patient once in 2022 (then twice in 2009 prior for a different diagnosis). I asked them if there was a reason they thought she needed to be seen. Will await communication back from [facility]. Katalina You LPN T [facility] 05-29-2024 Telephone encounter Note [facility] called stating that patient is back with them at this time. She is asking if patient needed a follow up with Dr. Oden. Patient was here in 2022. Please call Jeannie at [phone] T [facility] Work Phone: 05-17-2024 Progress note Note Date/Time May 17, 2024 11:03am [facility] Medical Records Department [address] [place] [address] Progress Note - Hospitalist 05/17/24 0752 MR#: [id number] Acct: [id number] Name: DONNA MARSH Rep #:[id number] : 1955 68 From: Anuja Murcia MD PCP: ORESTES Cano Status:ADM IN Location: [place] [id number]- Reason for Visit Reason for Visit: Diagnoses Other low back pain (05/14/24) Acute kidney failure, unspecified (05/14/24) Unspecified fall, initial encounter (05/14/24) Subjective Subjective Patient discharged the day prior was discontinued after she developed significantly elevated blood pressure. Adjusted blood pressure medications patient blood pressure has since improved. Patient blood pressure this a.m. is actually on the low side 92/50. Will continue with monitoring and discharge patient once patient blood pressure stabilizes. Objective Data Objective Data Vital Signs: Vital Signs Temp Pulse Resp BP Pulse Ox O2 Del Method 97.6 F L 108 H 18 103/61 96 Room Air 05/17/24 03:37 05/17/24 03:37 05/17/24 03:37 05/17/24 03:37 05/17/24 03:37 05/17/24 03:37 Oxygen Delivery Method Room Air Weight: 71.3 kg Body Mass Index (BMI) 27.8 Intake & Output: Intake and Output for Last 24 Hours 05/15/24 05/16/24 05/17/24 23:59 23:59 23:59 Intake Total 2100 / 2100 3200.0 / 3200.0 120 / 120 Output Total 600 / 1300 3600 / 3600 600 / 600 Balance 1500 / 800 -400.0 / -400.0 -480 / -480 Lab / Micro Data 05/17/24 05:55 05/17/24 05:55 Labs: Laboratory Results - last 24 hr 05/16/24 12:08: POC Glucose 140 H 05/16/24 14:20: POC Glucose 175 H 05/16/24 14:59: Troponin T High Sens 17 H 05/16/24 16:26: POC Glucose 228 H 05/16/24 16:51: Troponin T Hi Sens 2 Hr 18 H 05/16/24 18:33: Troponin T Hi Sens 4Hr 18 H 05/16/24 21:34: POC Glucose 210 H 05/17/24 03:41: U Random Total Protein 100.0 H, Urine Creatinine 21.70 L, Protein/Creatinin Ratio 4608 H 05/17/24 05:55: Sodium 138, Potassium 4.1, Chloride 105, Carbon Dioxide 19.8 L, Anion Gap 13, BUN 21 H, Creatinine 1.13, Estim Creat Clear Calc 43.85 L, Est GFR(MDRD) Non-Af 52 L, BUN/Creatinine Ratio 18.8, Glucose 229 H, Calcium 8.8 05/17/24 06:27: POC Glucose 190 H Radiography Diagnostic Testing: Radiology Impression Chest X-Ray 05/16/24 14:45 IMPRESSION: NO ACUTE FINDINGS. Reading Location: [place] [address] Physical Exam Narrative GENERAL: cooperative HEENT: Atraumatic; normocephalic EYES; Anicteric, Normal Conjunctiva NECK; supple, normal thyroid, RESPIRATORY: Diminished to auscultation CARDIOVASCULAR: Regular S1 S2, GI: soft, normoactive bowel sounds, : No Renal angle tenderness; EXTREMITIES: No edema, no clubbing, MUSCULOSKELETAL: no muscle wasting NEURO: Awake; no lateralizing signs. SKIN: No Rash PSYCH; Flat affect Assessment & Plan Assessment/Plan (1) DURAN (acute kidney injury): (2) Fall: PLAN: Plan Patient is a 68-year-old lady who presented to the emergency department following a fall with significant back pain imaging studies demonstrated no obvious fracture patient was however found to have severe multilevel degenerative changes admitted to regular nursing floor for pain management 1. Fall with intractable back pain - imaging studies demonstrated no obvious fracture patient was however found to have severe multilevel degenerative changes admitted to regular nursing floor for pain management 2. Physical deconditioning secondary to debility following the fall ? Requested for PT OT eval and social worker delinquency prevention to assist with discharge planning 3. Acute kidney injury ? Creatinine on admission was 1.13 patient kidney function did bump up to 1.7 started on IV fluid with avoidance of potential nephrotoxic medications. Ordered renal ultrasound as part of patient's evaluation ? 05/15/2024Patient seen, patient kidney function did worsen. Renal ultrasound obtained the day prior demonstrated bilateral renal cyst and none obstructive calculus in the right kidney. Review of patient kidney function over the past year shows intermittent DURAN's. Consult subsequently placed to nephrology. ? DURAN resolved at the time of the . Dyslipidemia ?Patient is on statin therapy, continued at home dose 5. Hypertension ? Blood pressure controlled, home medications continued with dose adjustment as needed ? 05/16/2024; patient was found to have markedly elevated blood pressure necessitating discontinuation of her discharge adjustment made to her home medication regimen ? 05/17/2024;Patient discharged the day prior was discontinued after she developedsignificantly elevated blood pressure. Adjusted blood pressure medications patient blood pressure has since improved. Patient blood pressure this a.m. is actually on the low side 92/50. Will continue with monitoring and discharge patient once patient blood pressure stabilizes. 6. History of peptic ulcer disease ?EGD performed on 01/04/2024 showed ulcers in the esophagus, duodenum, and gastric areas. Patient is on PPI 7. Diabetes mellitus type II -patient's oral 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s held. Placed on long acting insulin, Accu-Cheks a.c. and at bedtime and covered with sliding scale insulin 8. History of Takotsubo cardiomyopathy ? Remains stable 9. History of renal artery stenosis ? Remains stable 10. Paroxysmal atrial fibrillation ? Rate controlled on carvedilol and systemic anticoagulation with apixaban 11. Depression with anxiety ? Patient is on BuSpar as well as fluoxetine continue 12. Obstructive sleep apnea ? Consistent use of PAP therapy encouraged 13. DVT prophylaxis ? Patient is on apixaban 14. Hypokalemia ? Corrected per protocol prescription written and Time spent in the patient's overall evaluation,decision-making process, review of diagnostic data, adjustment of management, discussion with other providers, nursing nursing and ancillary staff involved in patient's care documentation, 40minutes Charges/Coding Visit Charges Inpatient E&M: 96877 Subs Hosp L2 05/17/24 1103 <Electronically signed by Anuja Murcia MD> Cosigner Signature (if applicable): CC: ~ Signed [facility] Work Phone: 1(756) 337-964304-04-2025 Progress note Author Anuja Murcia [facility] Note Date/Time May 16, 2024 2:36 pm [facility] Medical Records Department [address] [place] [address] Progress Note - Hospitalist 05/16/24 1435 MR#: [id number] Acct: [id number] Name: DONNA MARSH Rep #:[id number] : 1955 68 From: Anuja Murcia MD PCP: ORESTES Cano Status:ADM IN Location: [place] [address] Reason for Visit Reason for Visit: Diagnoses Other low back pain (05/14/24) Acute kidney failure, unspecified (05/14/24) Unspecified fall, initial encounter (05/14/24) Subjective Subjective Plan was for patient to be discharged to a residential facility however she was found to have markedly elevated blood pressure prior to being discharged thedischarge was subsequently discontinued. Patient systolic blood pressure was greater than 200 started on hydralazine as well as scheduled amlodipine. As part of her management ordered checks x-ray serial cardiac enzymes and EKG Objective Data Objective Data Vital Signs: Vital Signs Temp Pulse Resp BP Pulse Ox O2 Del Method 99.1 F 101 H 18 196/86 H 97 Room Air 05/16/24 12:06 05/16/24 13:01 05/16/24 12:06 05/16/24 13:41 05/16/24 12:06 05/16/24 12:06 Oxygen Delivery Method Room Air Weight: 72.9 kg Body Mass Index (BMI) 28.4 Intake & Output: Intake and Output for Last 24 Hours 05/14/24 05/15/24 05/16/24 23:59 23:59 23:59 Intake Total 3632.5 / 3632.5 2100 / 2100 2580.0 / 2580.0 Output Total 600 / 1300 2500 / 2500 Balance 3632.5 / 3432.5 1500 / 800 80.0 / 80.0 Lab / Micro Data 05/16/24 05:10 05/16/24 05:10 Labs: Laboratory Results - last 24 hr 05/15/24 16:25: POC Glucose 158 H 05/15/24 22:02: POC Glucose 130 H 05/16/24 05:10: WBC 10.0, RBC 3.36 L, Hgb 9.8 L, Hct 30.3 L, MCV 90.2, MCH 29.2,MCHC 32.3, RDW Std Deviation 44.9 H, RDW Coeff of Gerhard 13.6, Plt Count 179, MPV 10.2, Immature Gran % (Auto) 0.600, Neut % (Auto) 66.6, Lymph % (Auto) 22.2, Long % (Auto) 8.0, Eos % (Auto) 2.4, Baso % (Auto) 0.2, Absolute Neuts (auto) 6.7, Absolute Lymphs (auto) 2.22, Nucleated RBC % 0, Sodium 141, Potassium 3.2 L, Chloride 113 H, Carbon Dioxide 17.8 L, Anion Gap 11, BUN 17, Creatinine 0.97, Estim Creat Clear Calc 51.63, Est GFR (MDRD) Non-Af 63, BUN/Creatinine Ratio 17.8, Glucose 145 H, Calcium 8.1 05/16/24 06:28: POC Glucose 128 H 05/16/24 12:08: POC Glucose 140 H Physical Exam Narrative GENERAL: cooperative HEENT: Atraumatic; normocephalic EYES; Anicteric, Normal Conjunctiva NECK; supple, normal thyroid, RESPIRATORY: Diminished to auscultation CARDIOVASCULAR: Regular S1 S2, GI: soft, normoactive bowel sounds, : No Renal angle tenderness; EXTREMITIES: No edema, no clubbing, MUSCULOSKELETAL: no muscle wasting NEURO: Awake; no lateralizing signs. SKIN: No Rash PSYCH; Flat affect Assessment & Plan Assessment/Plan (1) DURAN (acute kidney injury): (2) Fall: PLAN: Plan Patient is a 68-year-old lady who presented to the emergency department following a fall with significant back pain imaging studies demonstrated no obvious fracture patient was however found to have severe multilevel degenerative changes admitted to regular nursing floor for pain management 1. Fall with intractable back pain - imaging studies demonstrated no obvious fracture patient was however found to have severe multilevel degenerative changes admitted to regular nursing floor for pain management 2. Physical deconditioning secondary to debility following the fall ? Requested for PT OT eval and social worker delinquency prevention to assist with discharge planning 3. Acute kidney injury ? Creatinine on admission was 1.13 patient kidney function did bump up to 1.7 started on IV fluid with avoidance of potential nephrotoxic medications. Ordered renal ultrasound as part of patient's evaluation ? 05/15/2024Patient seen, patient kidney function did worsen. Renal ultrasound obtained the day prior demonstrated bilateral renal cyst and none obstructive calculus in the right kidney. Review of patient kidney function over the past year shows intermittent DURAN's. Consult subsequently placed to nephrology. ? DURAN resolved at the time of the 4. Dyslipidemia ?Patient is on statin therapy, continued at home dose 5. Hypertension ? Blood pressure controlled, home medications continued with dose adjustment as needed ? 05/16/2024; patient was found to have markedly elevated blood pressure necessitating discontinuation of her discharge adjustment made to her home medication regimen 6. History of peptic ulcer disease ?EGD performed on 01/04/2024 showed ulcers in the esophagus, duodenum, and gastric areas. Patient is on PPI 7. Diabetes mellitus type II -patient's oral 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s held. Placed on long acting insulin, Accu-Cheks a.c. and at bedtime and covered with sliding scale insulin 8. History of Takotsubo cardiomyopathy ? Remains stable 9. History of renal artery stenosis ? Remains stable 10. Paroxysmal atrial fibrillation ? Rate controlled on carvedilol and systemic anticoagulation with apixaban 11. Depression with anxiety ? Patient is on BuSpar as well as fluoxetine continue 12. Obstructive sleep apnea ? Consistent use of PAP therapy encouraged 13. DVT prophylaxis ? Patient is on apixaban 14. Hypokalemia ? Corrected per protocol prescription written and Time spent in the patient's overall evaluation,decision-making process, review of diagnostic data, adjustment of management, discussion with other providers, nursing nursing and ancillary staff involved in patient's care documentation, 40minutes Charges/Coding Visit Charges Inpatient E&M: 88421 Subs Hosp L2 05/16/24 1436 <Electronically signed by Anuja Murcia MD> Cosigner Signature (if applicable): CC: ~ Signed [facility] Work Phone: 1(184) 571-379504-04-2025 Radiology Diagnostic study [facility]04-04-2025 Discharge summary Author Anuja Murcia [facility] Note Date/Time May 16, 2024 9:20 am [facility] Medical Records Department [address] [place] [address] Transfer to [facility] MR#: [id number] Acct: [id number] Name: DONNA MARSH David Rep #:[id number] : 1955 68 From: Anuja Murcia MD PCP: ORESTES Cano Status:ADM IN Certification of patient admission REQUIRED AT TIME OF ADMISSION. I CERTIFY THAT POST-HOSPITAL ECF SERVICES ARE REQUIRED TO BE GIVEN ON AN IN-PATIENT BASIS BECAUSE OF THE ABOVE NAMED PATIENT'S NEED FOR USP CARE ON A CONTINUING BASIS FOR THE CONDITION(S) FOR WHICH HE/SHE WAS RECEIVING IN-PATIENT HOSPITAL SERVICES PRIOR TO HIS/HER TRANSFER TO THE F. 05/16/24 0920<Electronically signed by Anuja Murcia MD> Diet Diet Order/Speech Therapy: 05/13/24 23:05 Diet: Consistent Carb - Calorie Controlled Food consistency:: Regular Liquid Consistency:: Regular/Thin How many daily calories?: 1800 calorie Routine Orders/Code Status Code Status: Full Code DC O2, CPAP, BIPAP needs Home O2 Discharge instructions: No Wound(s) Rt forearm: Wound Type: Skin Tear Lt forearm: Wound Type: few scratches Therapies Physical Therapy: Eval and Treat Occupational Therapy: Eval and Treat Problem/Diagnosis (1) DURAN (acute kidney injury): Status: Acute Code(s): N17.9 - Acute kidney failure, unspecified (2) Fall: Status: Acute Code(s): W19.XXXA - Unspecified fall, initial encounter Plan Patient is a 68-year-old lady who presented to the emergency department following a fall with significant back pain imaging studies demonstrated no obvious fracture patient was however found to have severe multilevel degenerative changes admitted to regular nursing floor for pain management 1. Fall with intractable back pain - imaging studies demonstrated no obvious fracture patient was however found to have severe multilevel degenerative changes admitted to regular nursing floor for pain management 2. Physical deconditioning secondary to debility following the fall ? Requested for PT OT eval and social worker delinquency prevention to assist with discharge planning 3. Acute kidney injury ? Creatinine on admission was 1.13 patient kidney function did bump up to 1.7 started on IV fluid with avoidance of potential nephrotoxic medications. Ordered renal ultrasound as part of patient's evaluation ? 05/15/2024Patient seen, patient kidney function did worsen. Renal ultrasound obtained the day prior demonstrated bilateral renal cyst and none obstructive calculus in the right kidney. Review of patient kidney function over the past year shows intermittent DURAN's. Consult subsequently placed to nephrology. ? DURAN resolved at the time of the 4. Dyslipidemia ?Patient is on statin therapy, continued at home dose 5. Hypertension ? Blood pressure controlled, home medications continued with dose adjustment as needed 6. History of peptic ulcer disease ?EGD performed on 01/04/2024 showed ulcers in the esophagus, duodenum, and gastric areas. Patient is on PPI 7. Diabetes mellitus type II -patient's oral 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s held. Placed on long acting insulin, Accu-Cheks a.c. and at bedtime and covered with sliding scale insulin 8. History of Takotsubo cardiomyopathy ? Remains stable 9. History of renal artery stenosis ? Remains stable 10. Paroxysmal atrial fibrillation ? Rate controlled on carvedilol and systemic anticoagulation with apixaban 11. Depression with anxiety ? Patient is on BuSpar as well as fluoxetine continue 12. Obstructive sleep apnea ? Consistent use of PAP therapy encouraged 13. DVT prophylaxis ? Patient is on apixaban 14. Hypokalemia ? Corrected per protocol prescription written and Time spent in the patient's overall evaluation,decision-making process, review of diagnostic data, adjustment of management, discussion with other providers, nursing nursing and ancillary staff involved in patient's care documentation, 40minutes Allergies/Procedures Done in Hospital Allergies morphine Allergy (Mild, Verified 05/13/24 15:44) confusion codeine Allergy (Verified 05/13/24 15:44) Itching fentanyl Adverse Reaction (Verified 05/13/24 15:44) confusion confusion x3 days naproxen Adverse Reaction (Verified 05/13/24 15:44) Other makes me jittery Type of Care/Length of Stay Estimated LOS: Convalescent Care Less Than 30 days Type of Care Needed: Skilled Rehab Potential: Good Prognosis: Good Additional Orders/Day of Discharge Day of Discharge: 05/16/24 Dietary and Speech Recommendations Dietitian Recommendations/Changes: Continue 1800CCD diet to manage blood sugars.No sugar free foods per pt request. Discharge Plan Admission Admit Date/Time: 05/14/24 11:43 Attending Provider: Anuja Murcia Primary Care Provider: Rudy Boyer Consulting Providers: Kanwal Aguilar; Jameson Carrillo Discharge Orders/Prescriptions Prescriptions: New lidocaine 5 % Adhesive Patch,Medicated 2 patch topical DAILY Qty: 0 0RF Protocol: *Topical Application Instructions APPLICATION INSTRUCTIONS: back, s/p fall insulin lispro [Humalog KwikPen Insulin] 100 unit/mL Insulin Pen See Protocol subcut ACHS Qty: 0 0RF Protocol: 3. Sliding Scale Insulin Med Dosing Condition: 150-189 mg/dl = 1 unit Condition: 190-229 mg/dl = 2 units Condition: 230-269 mg/dl = 3 units Condition: 270-309 mg/dl = 4 units Condition: 310-349 mg/dl = 5 units Condition: 350-399 mg/dl = 6 units Condition: 400-449 mg/dl = 7 units Condition: Greater than 449 call physician Protocol Text: - Use for Total Daily Dose of Insulin 37-55 units - Obsese, infected, or steroid patients MEDIUM DOSING ALGORITHIM tizanidine 2 mg Tablet 2 mg PO Q8H PRN PRN (Reason: muscle spasms/strain) Qty: 0 0RF sennosides-docusate sodium [Stimulant Laxative Plus] 8.6-50 mg Tablet 2 tab PO BID PRN PRN (Reason: Constipation) Qty: 0 0RF melatonin 3 mg Tablet 3 mg PO QHS PRN PRN (Reason: Insomnia) Qty: 0 0RF potassium chloride 20 mEq Tablet,Er Particles/Crystals 20 meq PO BIDCM Qty: 0 0RF alum-mag hydroxide-simeth [Mag-Al Plus Extra Strength] 400-400-40 mg/5 mL Suspension 30 ml PO Q6H PRN PRN (Reason: Gastric Burning) Qty: 0 0RF hydroxyzine pamoate 25 mg Capsule 25 mg PO TID PRN PRN (Reason: severe anxiety) Qty: 0 0RF Remove Patch 2 patch topical DAILY@2200 Qty: 0 0RF amlodipine 10 mg tablet 10 mg PO DAILY Qty: 60 0RF Continued Eliquis 2.5 mg tablet 2.5 mg PO BID glipizide 10 mg tablet 10 mg PO DAILY fexofenadine 180 mg tablet 180 mg PO DAILY ergocalciferol (vitamin D2) [Vitamin D2] 1,250 mcg (50,000 unit) capsule 1,250 mcg PO SA Rx Instructions: TAKES EVERY WEEK ON SUNDAY AT BEDTIME fluoxetine 40 mg Capsule 40 mg PO BID Qty: 0 0RF carvedilol 3.125 mg Tablet 3.125 mg PO BIDCM Qty: 0 0RF atorvastatin 20 mg Tablet 20 mg PO QHS Qty: 0 0RF tolterodine 4 mg Capsule,Extended Release 24hr 4 mg PO DAILY Qty: 0 0RF pantoprazole 40 mg Tablet,Delayed Release (Dr/Ec) 40 mg PO BID Qty: 0 0RF gabapentin 100 mg Capsule 100 mg PO TID Qty: 0 0RF donepezil 10 mg tablet 10 mg PO DAILY buspirone 15 mg tablet 15 mg PO BID mirabegron 50 mg tablet extended release 24 hr 50 mg PO DAILY acetaminophen 325 mg Tablet 650 mg PO Q4H PRN (Reason: Fever, pain -11/21) Referrals / Follow Up: SharlaRudy mcgowan NP-C [Primary Care Provider] - Within 2 Weeks Disposition Disposition (needs filled in before D/C Order can be placed): Care Home Facility 05/16/24 0920 <Electronically signed by Anuja Murcia MD> Cosigner Signature (if applicable): CC: ORESTES Boyer; Dr. Kanwal Aguilar MD; Dr. Jameson Carrillo MD ~ [facility] Work Phone: 1([phone]) 722-722504-04-2025 Discharge summary Author Anuja Murcia [facility] Note Date/Time May 17, 2024 2:32 pm [facility] Medical Records Department [address] [place] [address] Discharge Summary 05/16/24 0920 MR#: [id number] Acct: [id number] Name: DONNA MARSH Rep #:[id number] : 1955 68 From: Anuja Murcia MD PCP: ORESTES Cano Status:ADM IN Location: [place] [id number] Providers Date of Admission: 05/14/24 Date of Discharge: 05/16/24 Primary Care Physician: ORESTES Cano Consultations 05/15/24 11:03 Consult: Nephrology Routine Consulting Provider: Jameson Carrillo Reason for Consult: DURAN EMERGENT Consult: No MD Notified: Yes Date Notified: 05/15/24 Time Notified: 11:03 Method of Notification: Verbal Reason For Visit: FALL, INTRACTABLE BACK PAIN Diagnosis Discharge Diagnosis (1) DURAN (acute kidney injury): Status: Acute Code(s): N17.9 - Acute kidney failure, unspecified (2) Fall: Status: Acute Code(s): W19.XXXA - Unspecified fall, initial encounter Plan Patient is a 68-year-old lady who presented to the emergency department following a fall with significant back pain imaging studies demonstrated no obvious fracture patient was however found to have severe multilevel degenerative changes admitted to regular nursing floor for pain management 1. Fall with intractable back pain - imaging studies demonstrated no obvious fracture patient was however found to have severe multilevel degenerative changes admitted to regular nursing floor for pain management 2. Physical deconditioning secondary to debility following the fall ? Requested for PT OT eval and social worker delinquency prevention to assist with discharge planning 3. Acute kidney injury ? Creatinine on admission was 1.13 patient kidney function did bump up to 1.7 started on IV fluid with avoidance of potential nephrotoxic medications. Ordered renal ultrasound as part of patient's evaluation ? 05/15/2024Patient seen, patient kidney function did worsen. Renal ultrasound obtained the day prior demonstrated bilateral renal cyst and none obstructive calculus in the right kidney. Review of patient kidney function over the past year shows intermittent DURAN's. Consult subsequently placed to nephrology. ? DURAN resolved at the time of the 4. Dyslipidemia ?Patient is on statin therapy, continued at home dose 5. Hypertension ? Blood pressure controlled, home medications continued with dose adjustment as needed 6. History of peptic ulcer disease ?EGD performed on 01/04/2024 showed ulcers in the esophagus, duodenum, and gastric areas. Patient is on PPI 7. Diabetes mellitus type II -patient's oral 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s held. Placed on long acting insulin, Accu-Cheks a.c. and at bedtime and covered with sliding scale insulin 8. History of Takotsubo cardiomyopathy ? Remains stable 9. History of renal artery stenosis ? Remains stable 10. Paroxysmal atrial fibrillation ? Rate controlled on carvedilol and systemic anticoagulation with apixaban 11. Depression with anxiety ? Patient is on BuSpar as well as fluoxetine continue 12. Obstructive sleep apnea ? Consistent use of PAP therapy encouraged 13. DVT prophylaxis ? Patient is on apixaban 14. Hypokalemia ? Corrected per protocol prescription written and Time spent in the patient's overall evaluation,decision-making process, review of diagnostic data, adjustment of management, discussion with other providers, nursing nursing and ancillary staff involved in patient's care documentation, 40minutes Medications at Discharge Home Medications apixaban 2.5 mg tablet (Eliquis) 2.5 mg PO BID blood thinner 02/14/24 ergocalciferol (vitamin D2) 1,250 mcg (50,000 unit) capsule (Vitamin D2) 1,250 mcg PO SA 04/20/24 fexofenadine 180 mg tablet 180 mg PO DAILY 04/20/24 glipizide 10 mg tablet 10 mg PO DAILY 04/20/24 atorvastatin 20 mg tablet 20 mg PO QHS #0 tabs 04/24/24 carvedilol 3.125 mg tablet 3.125 mg PO BIDCM #0 tabs 04/24/24 fluoxetine 40 mg capsule 40 mg PO BID #0 caps 04/24/24 gabapentin 100 mg capsule 100 mg PO TID #0 caps 04/24/24 pantoprazole 40 mg tablet,delayed release 40 mg PO BID #0 tabs 04/24/24 tolterodine 4 mg capsule,extended release 24 hr 4 mg PO DAILY #0 caps 04/24/24 acetaminophen 325 mg tablet 650 mg PO Q4H PRN Fever, pain 1-11/2105/13/24 buspirone 15 mg tablet 15 mg PO BID 05/13/24 donepezil 10 mg tablet 10 mg PO DAILY 05/13/24 mirabegron 50 mg tablet,extended release 24 hr 50 mg PO DAILY 05/13/24 Remove Patch 2 patch topical DAILY@2199 ##0 05/16/24 aluminum-mag hydroxide-simethicone 400 mg-400 mg-40 mg/5 mL oral susp (Mag-Al Plus Extra Strength) 30 ml PO Q6H PRN PRN Gastric Burning #0 mL 05/16/24 amlodipine 10 mg tablet 10 mg PO DAILY #60 tabs 05/16/24 hydroxyzine pamoate 25 mg capsule 25 mg PO TID PRN PRN severe anxiety #0 caps 05/16/24 insulin lispro 100 unit/mL subcutaneous pen (Humalog KwikPen (U-100) Insulin) See Protocol subcut ACHS #0 mL 05/16/24 lidocaine 5 % topical patch 2 patch topical DAILY #0 ea 05/16/24 melatonin 3 mg tablet 3 mg PO QHS PRN PRN Insomnia #0 tabs 05/16/24 potassium chloride 20 mEq tablet,extended release(part/cryst) 20 meq PO BIDCM #0tabs 05/16/24 sennosides 8.6 mg-docusate sodium 50 mg tablet (Stimulant Laxative Plus) 2 tab PO BID PRN PRN Constipation #0 tabs 05/16/24 tizanidine 2 mg tablet 2 mg PO Q8H PRN PRN muscle spasms/strain #0 tabs 05/16/24 Physical Exam Narrative GENERAL: cooperative HEENT: Atraumatic; normocephalic EYES; Anicteric, Normal Conjunctiva NECK; supple, normal thyroid, RESPIRATORY: Diminished to auscultation CARDIOVASCULAR: Regular S1 S2, GI: soft, normoactive bowel sounds, : No Renal angle tenderness; EXTREMITIES: No edema, no clubbing, MUSCULOSKELETAL: no muscle wasting NEURO: Awake; no lateralizing signs. SKIN: No Rash PSYCH; Flat affect Weight / BMI Weight Weight: 72.9 kg Body Mass Index (BMI) 28.4 ABG / Lab / Microbiology Data 05/16/24 05:10 05/16/24 05:10 Laboratory: Laboratory Results - last 24 hr 05/15/24 11:53: POC Glucose 156 H 05/15/24 16:25: POC Glucose 158 H 05/15/24 22:02: POC Glucose 130 H 05/16/24 05:10: WBC 10.0, RBC 3.36 L, Hgb 9.8 L, Hct 30.3 L, MCV 90.2, MCH 29.2,MCHC 32.3, RDW Std Deviation 44.9 H, RDW Coeff of Gerhard 13.6, Plt Count 179, MPV 10.2, Immature Gran % (Auto) 0.600, Neut % (Auto) 66.6, Lymph % (Auto) 22.2, Long % (Auto) 8.0, Eos % (Auto) 2.4, Baso % (Auto) 0.2, Absolute Neuts (auto) 6.7, Absolute Lymphs (auto) 2.22, Nucleated RBC % 0, Sodium 141, Potassium 3.2 L, Chloride 113 H, Carbon Dioxide 17.8 L, Anion Gap 11, BUN 17, Creatinine 0.97, Estim Creat Clear Calc 51.63, Est GFR (MDRD) Non-Af 63, BUN/Creatinine Ratio 17.8, Glucose 145 H, Calcium 8.1 05/16/24 06:28: POC Glucose 128 H D/C Instructions Discharge Diet: 1800 Calorie Control Diet Discharge Activity: Return to Normal Activity Call your doctor if you observe: Fever of 101 or Higher, Shortness of breath, Fainting spells and Chest pain DC O2, CPAP, BIPAP Needs Home O2 Discharge instructions: No DC home with Oxygen: No Meaningful Use Info Meaningful Use Meaningful Use Diagnoses (Choose all that apply): None applicable Ischemic Stroke Statin Dosing Therapy Reference: STATIN DOSE THERAPY REFERENCE: * Patients > 75 years receive moderate or high dose statin therapy. * Patients 75 years or YOUNGER should receive HIGH intensity statin dose unless contraindicated. You will be required to document reason for non-treatment if statin daily dose does not meet guidelines. HIGH DOSE STATIN THERAPY DAILY Atorvastatin > than or = to 40 mg Rosuvastatin > than or = to 20 mg Amlodipine + Atorvastatin > than or = to 2.5/40 mg Ezetimibe + Simvastatin 10/80 mg Simvastatin 80mg Discharge Plan Admission Admit Date/Time: 05/14/24 11:43 Attending Provider: Anuja Murcia Primary Care Provider: Rudy Boyer Consulting Providers: Kanwal Aguilar; Jameson Carrillo Discharge Orders/Prescriptions Prescriptions: New lidocaine 5 % Adhesive Patch,Medicated 2 patch topical DAILY Qty: 0 0RF Protocol: *Topical Application Instructions APPLICATION INSTRUCTIONS: back, s/p fall insulin lispro [Humalog KwikPen Insulin] 100 unit/mL Insulin Pen See Protocol subcut ACHS Qty: 0 0RF Protocol: 3. Sliding Scale Insulin Med Dosing Condition: 150-189 mg/dl = 1 unit Condition: 190-229 mg/dl = 2 units Condition: 230-269 mg/dl = 3 units Condition: 270-309 mg/dl = 4 units Condition: 310-349 mg/dl = 5 units Condition: 350-399 mg/dl = 6 units Condition: 400-449 mg/dl = 7 units Condition: Greater than 449 call physician Protocol Text: - Use for Total Daily Dose of Insulin 37-55 units - Obsese, infected, or steroid patients MEDIUM DOSING ALGORITHIM tizanidine 2 mg Tablet 2 mg PO Q8H PRN PRN (Reason: muscle spasms/strain) Qty: 0 0RF sennosides-docusate sodium [Stimulant Laxative Plus] 8.6-50 mg Tablet 2 tab PO BID PRN PRN (Reason: Constipation) Qty: 0 0RF melatonin 3 mg Tablet 3 mg PO QHS PRN PRN (Reason: Insomnia) Qty: 0 0RF potassium chloride 20 mEq Tablet,Er Particles/Crystals 20 meq PO BIDCM Qty: 0 0RF alum-mag hydroxide-simeth [Mag-Al Plus Extra Strength] 400-400-40 mg/5 mL Suspension 30 ml PO Q6H PRN PRN (Reason: Gastric Burning) Qty: 0 0RF hydroxyzine pamoate 25 mg Capsule 25 mg PO TID PRN PRN (Reason: severe anxiety) Qty: 0 0RF Remove Patch 2 patch topical DAILY@2200 Qty: 0 0RF amlodipine 10 mg tablet 10 mg PO DAILY Qty: 60 0RF Continued Eliquis 2.5 mg tablet 2.5 mg PO BID glipizide 10 mg tablet 10 mg PO DAILY fexofenadine 180 mg tablet 180 mg PO DAILY ergocalciferol (vitamin D2) [Vitamin D2] 1,250 mcg (50,000 unit) capsule 1,250 mcg PO SA Rx Instructions: TAKES EVERY WEEK ON SUNDAY AT BEDTIME fluoxetine 40 mg Capsule 40 mg PO BID Qty: 0 0RF carvedilol 3.125 mg Tablet 3.125 mg PO BIDCM Qty: 0 0RF atorvastatin 20 mg Tablet 20 mg PO QHS Qty: 0 0RF tolterodine 4 mg Capsule,Extended Release 24hr 4 mg PO DAILY Qty: 0 0RF pantoprazole 40 mg Tablet,Delayed Release (Dr/Ec) 40 mg PO BID Qty: 0 0RF gabapentin 100 mg Capsule 100 mg PO TID Qty: 0 0RF donepezil 10 mg tablet 10 mg PO DAILY buspirone 15 mg tablet 15 mg PO BID mirabegron 50 mg tablet extended release 24 hr 50 mg PO DAILY acetaminophen 325 mg Tablet 650 mg PO Q4H PRN (Reason: Fever, pain 1-11/21) Referrals / Follow Up: Rudy Boyer NP-C [Primary Care Provider] - Within 2 Weeks Disposition Disposition (needs filled in before D/C Order can be placed): Care Home Facility Charges/Coding Visit Charges Inpatient E&M: 61297 Disch Hosp >30min 05/16/24 0921 <Electronically signed by Anuja Murcia MD> Cosigner Signature (if applicable): CC: ORESTES Boyer; Dr. Anuja Murcia MD~ Signed ADDENDUM by Dr. Anuja Murcia MD on 05/17/24 at 1432 Addendum Patient discharge was delayed for a day following markedly elevated blood pressure. Patient was discharged back to the residential facility followingstabilization of blood pressure. No further changes made to patient antihypertensive regimen since blood pressure did not drop significantly the following day. 05/17/24 1432<Electronically signed by Anuja Murcia MD> Cosigner Signature (if applicable): cc: ORESTES Boyer; Dr. Anuja Murcia MD ~* Signed [facility] Work Phone: 1(702) 168-604304-04-2025 Progress note Author Suma Robertson [facility] Note Date/Time May 17, 2024 2:25 pm [facility] Medical Records Department [address] [place] [address] Progress Note - Nephrology 05/16/24 0903 MR#: [id number] Acct: [id number] Name: DONNA MARSH Rep #:[id number] : 1955 68 From: Suma cook [employer] HEL[employer]-C PCP: ORESTES Cano Status:ADM IN Location: [place] [address] Subjective Subjective No complaints. No overnight events Objective Data Objective Data Vital Signs: Vital Signs Temp Pulse Resp BP Pulse Ox O2 Del Method 99 F 89 16 145/73 H 96 Room Air 05/16/24 08:31 05/16/24 08:31 05/16/24 08:31 05/16/24 08:31 05/16/24 08:31 05/16/24 08:31 Oxygen Delivery Method Room Air Weight: 72.9 kg Body Mass Index (BMI) 28.4 Intake & Output: Intake and Output for Last 24 Hours 05/14/24 05/15/24 05/16/24 23:59 23:59 23:59 Intake Total 3632.5 / 3632.5 2100 / 2100 1000 / 1000 Output Total 600 / 1300 1700 / 1700 Balance 3632.5 / 3432.5 1500 / 800 -700 / -700 Lab / Micro Data 05/16/24 05:10 05/16/24 05:10 Labs: Laboratory Results - last 24 hr 05/15/24 11:53: POC Glucose 156 H 05/15/24 16:25: POC Glucose 158 H 05/15/24 22:02: POC Glucose 130 H 05/16/24 05:10: WBC 10.0, RBC 3.36 L, Hgb 9.8 L, Hct 30.3 L, MCV 90.2, MCH 29.2,MCHC 32.3, RDW Std Deviation 44.9 H, RDW Coeff of Gerhard 13.6, Plt Count 179, MPV 10.2, Immature Gran % (Auto) 0.600, Neut % (Auto) 66.6, Lymph % (Auto) 22.2, Long % (Auto) 8.0, Eos % (Auto) 2.4, Baso % (Auto) 0.2, Absolute Neuts (auto) 6.7, Absolute Lymphs (auto) 2.22, Nucleated RBC % 0, Sodium 141, Potassium 3.2 L, Chloride 113 H, Carbon Dioxide 17.8 L, Anion Gap 11, BUN 17, Creatinine 0.97, Estim Creat Clear Calc 51.63, Est GFR (MDRD) Non-Af 63, BUN/Creatinine Ratio 17.8, Glucose 145 H, Calcium 8.1 05/16/24 06:28: POC Glucose 128 H Physical Exam Narrative Alert and orient x 3, no apparent distress S1, S2, RRR Lungs sound clear anteriorly and posteriorly. No wheezes, rhonchi or rales Abdomen soft, nontender No edema Assessment & Plan Assessment/Plan (1) DURAN (acute kidney injury): (2) Fall: PLAN: Plan This is a 68-year-old female with past medical history significant for hypertension, diabetes mellitus type 2 with presence of proteinuria, coronary disease who was brought to the emergency room for evaluation of fall. Patient was noted to be significantly hypertensive in the emergency room with systolic blood pressures as high as 220s but improved quickly with systolic blood pressure going in the low 100s. Baseline creatinine less than 1 mg/dL but patient does have episodes of DURAN. Patient has never required any PAYROLL ASSOCIATE. For this admission creatinine was 1.13 on May 13. - Nonoliguric DURAN possibly from hemodynamics and fluctuating blood pressures with poor renal perfusion. Also to note patient was received Toradol for pain but this has been stopped; no recent LEYDI, ARB's or diuretics. Patient being started on IV fluids. Blood pressures have improved, she is not on any antihypertensives at this time. Creatinine peaked 1.84 yesterday and today her creatinine is 0.97. With IV fluids alone renal function improved. K+ low, getting replacement today. Can decrease IV fluid rate. Renal ultrasound no hydronephrosis. UA 100 protein, negative RBC or leukocyte esterase. UPC pending. Assessment and plan reviewed with Dr. Carrillo. 05/16/24 0906 <Electronically signed by Suma CARLISLE> Cosigner Signature (if applicable): [id number] <Electronically signed by Jameson Carrillo MD> CC: ~ Signed [facility] Work Phone: 1(439) 640-872904-04-2025 [facility]04-03-2025 Consult note Author Suma Robertson [facility] Note Date/Time May 15, 2024 9:15 pm [facility] Medical Records Department [address] [place] [address] Consultation - Nephrology 05/15/24 1150 MR#: [id number] Acct: [id number] Name: DONNA MARSH Rep #:[id number] : 1955 68 From: Suma CARLISLE PCP: ORESTES Cano Status:ADM IN Location: [place] [address] Documented by User: ORESTES Jaffe 05/15/24 12:02 Assessment & Plan Assessment/Plan (1) DURAN (acute kidney injury): (2) Fall: PLAN: Plan This is a 68-year-old female with past medical history significant for hypertension, diabetes mellitus type 2 with presence of proteinuria, coronary disease who was brought to the emergency room for evaluation of fall. Patient was noted to be significantly hypertensive in the emergency room with systolic blood pressures as high as 220s but improved quickly with systolic blood pressure going in the low 100s. Baseline creatinine less than 1 mg/dL but patient does have episodes of DURAN. Patient has never required any PAYROLL ASSOCIATE. For this admission creatinine was 1.13 on May 13, yesterday creatinine 1.79 and today her creatinine is 1.84 mg/dL. Nonoliguric DURAN possibly from hemodynamics and fluctuating blood pressures with poor renal perfusion. Also to note patientwas received Toradol for pain but this has been stopped; no recent LEYDI, ARB's ordiuretics. Patient being started on IV fluids. Blood pressures have improved, she is not on any antihypertensives at this time. Renal ultrasound no hydronephrosis. UA 100 protein, negative RBC or leukocyte esterase, we will check urine protein creatinine ratio. labs ordered for morning. Further ordersforthcoming as hospitalization evolves, thank you for letting us participate in the care of Ms. Marsh. Assessment and plan reviewed with Dr. Carrillo. HPI Consult Data Date of Consult: 05/15/24 HPI Narrative HPI Narrative: DONNA MARSH, is a 68 F with past medical history significant for hypertension, GERD, BURKE, anxiety and depression, bipolar disorder, migraines, dementia uncleartype, coronary artery disease, diabetes mellitus type 2 with presence of proteinuria who presented to [place] emergency room on May 13 due to fall and intractable back pain. In emergency room patient was noted to be significantly hypertensive with systolic blood pressure going as high as 224. Patient was admitted for further evaluation and treatment. Nephrology consulted in view of elevated creatinine. Patient is known to our group from previous consultation in hospital in September 2023 for DURAN which was initially secondary to volume depletion with reduced renal perfusion then patient also had heart catheterization with exposure to IV contrast. Creatinine peaked to 1.4 and improved down to 1.0 by time of hospitalization. Patient is never required any PAYROLL ASSOCIATE. Currently patient denies any nausea or vomiting. Patient does not take NSAIDs. Per patient's daughter who is at bedside she feels patient's intake hasbeen poor during this hospitalization. No hematuria [facility] Medical History (Updated 05/15/24 @ 11:54 by Suma Robertson, CRISTOPHER-C) DURAN (acute kidney injury) Sepsis High anion gap metabolic acidosis Acute kidney injury Candidal intertrigo Acute UTI Recurrent falls Acute delirium Altered level of consciousness Acute encephalopathy Myocardial infarction type 2 Non-ST elevation MN (NSTEMI) Hiatal hernia Irritable bowel Back pain due to injury Restless legs Injury of head and neck High cholesterol Hearing loss, right Bipolar disorder Depression Anxiety GERD (gastroesophageal reflux disease) Former smoker Sleep apnea Atrial fibrillation Migraines Dementia Closed intertrochanteric fracture of left hip Psoriatic arthritis Nonobstructive atherosclerosis of coronary artery Obesity Type 2 diabetes mellitus Takotsubo syndrome Hyperlipidemia Essential (primary) hypertension NSTEMI (non-ST elevated myocardial infarction) (01/06/18) Home Medications ?Medication ?Instructions ?Recorded ?Last Taken ?Type apixaban 2.5 mg tablet (Eliquis) 2.5 mg PO BID blood t hinner 02/14/24 Unknown History ergocalciferol (vitamin D2) 1,250 1,250 mcg PO SA 11/0605/10/24 History mcg (50,000 unit) capsule (Vitamin D2) fexofenadine 180 mg tablet 180 mg PO DAILY 04/20/24 Un known History glipizide 10 mg tablet 10 mg PO DAILY 04/20/24 Unkn own History atorvastatin 20 mg tablet 20 mg PO QHS #0 tabs 5 05/12/24 Rx carvedilol 3.125 mg tablet 3.125 mg PO BIDCM #0 tabs 0 04/24/24 05/13/24 Rx fluoxetine 40 mg capsule 40 mg PO BID #0 caps 5 Unknown Rx gabapentin 100 mg capsule 100 mg PO TID #0 caps Unknown Rx pantoprazole 40 mg tablet,delayed 40 mg PO BID #0 tabs 04/24/24 Unknown Rx release tolterodine 4 mg capsule,extended 4 mg PO DAILY #0 cap s 04/24/24 Unknown Rx release 24 hr acetaminophen 325 mg tablet 650 mg PO Q4H PRN Fever, p ain 05/13/24 05/12/24 History buspirone 15 mg tablet 15 mg PO BID 05/13/24 Unknow n History donepezil 10 mg tablet 10 mg PO DAILY 05/13/24 Unkn own History mirabegron 50 mg tablet,extended 50 mg PO DAILY Unknown History release 24 hr Allergy/AdvReac Type Severity Reaction Status Date / Time morphine Allergy Mild confusion Verified 05/13/24 15:44 codeine Allergy Itching Verified 05/13/24 15:44 fentanyl AdvReac confusion Verified 05/13/24 15:44 naproxen AdvReac Other Verified 05/13/24 15:44 Family History Mother Cancer skin Father Cancer prostate Surgical History History of back surgery History of carpal tunnel release of both wrists History of hysterectomy History of left heart catheterization (01/07/18) Social History household members: spouse Smoking Status: Former smoker how long ago did patient quit smokin years ago alcohol intake: never substance use type: does not use caffeine: Yes Type: carbonated beverages Number of servings: 1 ROS ROS Narrative As in HPI Physical Exam Narrative Alert and orient x 3, no apparent distress S1, S2, RRR Lungs sound clear anteriorly and posteriorly. No wheezes, rhonchi or rales Abdomen soft, nontender No edema Lab / Micro Data 05/15/24 05:05 05/15/24 05:05 Labs: Laboratory Results - last 24 hr 05/14/24 17:12: POC Glucose 204 H 05/14/24 20:25: POC Glucose 131 H 05/15/24 05:05: WBC 9.9, RBC 3.31 L, Hgb 9.6 L, Hct 29.6 L, MCV 89.4, MCH 29.0, MCHC 32.4, RDW Std Deviation 45.4 H, RDW Coeff of Gerhard 13.9, Plt Count 168, MPV 10.0, Immature Gran % (Auto) 0.400, Neut % (Auto) 58.2, Lymph % (Auto) 30.1, Long % (Auto) 6.3, Eos % (Auto) 4.7, Baso % (Auto) 0.3, Absolute Neuts (auto) 5.8, Absolute Lymphs (auto) 2.98, Nucleated RBC % 0, Sodium 137, Potassium 3.3, Chloride 108, Carbon Dioxide 17.6 L, Anion Gap 11, BUN 29 H, Creatinine 1.84 H, Estim Creat Clear Calc 27.49 L, Est GFR (MDRD) Non-Af 29 L, BUN/Creatinine Ratio15.8, Glucose 109 H, Calcium 7.9, Phosphorus 3.6, Magnesium 1.6 05/15/24 05:52: POC Glucose 92 Imaging Radiology Impression Renal Ultrasound 05/14/24 10:13 IMPRESSION: Bilateral renal cysts. A nonobstructive calculus in the right kidney. Reading Location: [facility] Documented by User: Dr. Jameson Carrillo MD 05/15/24 21:15 Assessment & Plan Assessment/Plan (1) DURAN (acute kidney injury): (2) Fall: PLAN: Plan This is a 68-year-old female with past medical history significant for hypertension, diabetes mellitus type 2 with presence of proteinuria, coronary disease who was brought to the emergency room for evaluation of fall. Patient was noted to be significantly hypertensive in the emergency room with systolic blood pressures as high as 220s but improved quickly with systolic blood pressure going in the low 100s. Baseline creatinine less than 1 mg/dL but patient does have episodes of DURAN. Patient has never required any PAYROLL ASSOCIATE. For this admission creatinine was 1.13 on May 13, yesterday creatinine 1.79 and today her creatinine is 1.84 mg/dL. Nonoliguric DURAN possibly from hemodynamics and fluctuating blood pressures with poor renal perfusion. Also to note patientwas received Toradol for pain but this has been stopped; no recent LEYDI, ARB's ordiuretics. Patient being started on IV fluids. Blood pressures have improved, she is not on any antihypertensives at this time. Renal ultrasound no hydronephrosis. UA 100 protein, negative RBC or leukocyte esterase, we will check urine protein creatinine ratio. labs ordered for morning. Further ordersforthcoming as hospitalization evolves, thank you for letting us participate in the care of Ms. Marsh. Assessment and plan reviewed with Dr. Carrillo. addendum dw [facility] HPI Consult Data Date of Consult: 05/15/24 [facility] Medical History (Updated 05/15/24 @ 11:54 by Suma Robertson NP-Madelyn) DURAN (acute kidney injury) Sepsis High anion gap metabolic acidosis Acute kidney injury Candidal intertrigo Acute UTI Recurrent falls Acute delirium Altered level of consciousness Acute encephalopathy Myocardial infarction type 2 Non-ST elevation MN (NSTEMI) Hiatal hernia Irritable bowel Back pain due to injury Restless legs Injury of head and neck High cholesterol Hearing loss, right Bipolar disorder Depression Anxiety GERD (gastroesophageal reflux disease) Former smoker Sleep apnea Atrial fibrillation Migraines Dementia Closed intertrochanteric fracture of left hip Psoriatic arthritis Nonobstructive atherosclerosis of coronary artery Obesity Type 2 diabetes mellitus Takotsubo syndrome Hyperlipidemia Essential (primary) hypertension NSTEMI (non-ST elevated myocardial infarction) (01/06/18) Home Medications ?Medication ?Instructions ?Recorded ?Last Taken ?Type apixaban 2.5 mg tablet (Eliquis) 2.5 mg PO BID blood t hinner 02/14/24 Unknown History ergocalciferol (vitamin D2) 1,250 1,250 mcg PO SA 11/0605/10/24 History mcg (50,000 unit) capsule (Vitamin D2) fexofenadine 180 mg tablet 180 mg PO DAILY 04/20/24 Un known History glipizide 10 mg tablet 10 mg PO DAILY 04/20/24 Unkn own History atorvastatin 20 mg tablet 20 mg PO QHS #0 tabs 5 05/12/24 Rx carvedilol 3.125 mg tablet 3.125 mg PO BIDCM #0 tabs 0 04/24/24 05/13/24 Rx fluoxetine 40 mg capsule 40 mg PO BID #0 caps 5 Unknown Rx gabapentin 100 mg capsule 100 mg PO TID #0 caps Unknown Rx pantoprazole 40 mg tablet,delayed 40 mg PO BID #0 tabs 04/24/24 Unknown Rx release tolterodine 4 mg capsule,extended 4 mg PO DAILY #0 cap s 04/24/24 Unknown Rx release 24 hr acetaminophen 325 mg tablet 650 mg PO Q4H PRN Fever, p ain 05/13/24 05/12/24 History buspirone 15 mg tablet 15 mg PO BID 05/13/24 Unknow n History donepezil 10 mg tablet 10 mg PO DAILY 05/13/24 Unkn own History mirabegron 50 mg tablet,extended 50 mg PO DAILY Unknown History release 24 hr Allergy/AdvReac Type Severity Reaction Status Date / Time morphine Allergy Mild confusion Verified 05/13/24 15:44 codeine Allergy Itching Verified 05/13/24 15:44 fentanyl AdvReac confusion Verified 05/13/24 15:44 naproxen AdvReac Other Verified 05/13/24 15:44 Family History Mother Cancer skin Father Cancer prostate Surgical History History of back surgery History of carpal tunnel release of both wrists History of hysterectomy History of left heart catheterization (01/07/18) Social History household members: spouse Smoking Status: Former smoker how long ago did patient quit smokin years ago alcohol intake: never substance use type: does not use caffeine: Yes Type: carbonated beverages Number of servings: 1 Lab / Micro Data 05/15/24 05:05 05/15/24 05:05 05/15/24 1202 <Electronically signed by Suma CARLISLE> Cosigner Signature (if applicable): 05/15/242114 <Electronically signed by Jameson Carrillo MD> CC: [employer] HELPER-C Rudy Boyer~ Signed [facility] Work Phone: 1(865) 545-853204-03-2025 Progress note Author Anuja Murcia [facility] Note Date/Time May 15, 2024 11:0 4am [facility] Medical Records Department [address] [place] [address] Progress Note - Hospitalist 05/15/24 1051 MR#: [id number] Acct: [id number] Name: DONNA MARSH Rep #:[id number] : 1955 68 From: Anuja Murcia MD PCP: ORESTES Cano Status:ADM IN Location: [place] [address] Reason for Visit Reason for Visit: Diagnoses Other low back pain (05/14/24) Unspecified fall, initial encounter (05/14/24) Subjective Subjective Patient seen, patient kidney function did worsen. Renal ultrasound obtained theday prior demonstrated bilateral renal cyst and none obstructive calculus in theright kidney Objective Data Objective Data Vital Signs: Vital Signs Temp Pulse Resp BP Pulse Ox O2 Del Method 98.1 F 79 16 100/52 L 94 Room Air 05/15/24 10:00 05/15/24 10:00 05/15/24 10:00 05/15/24 10:00 05/15/24 10:00 05/15/24 10:00 Oxygen Delivery Method Room Air Weight: 74.4 kg Body Mass Index (BMI) 29.0 Intake & Output: Intake and Output for Last 24 Hours 05/13/24 05/14/24 05/15/24 23:59 23:59 23:59 Intake Total 3632.5 / 3632.5 1100 / 1100 Output Total 200 / 200 Balance 3632.5 / 3432.5 900 / 900 Lab / Micro Data 05/15/24 05:05 05/15/24 05:05 Labs: Laboratory Results - last 24 hr 05/14/24 11:19: POC Glucose 225 H 05/14/24 17:12: POC Glucose 204 H 05/14/24 20:25: POC Glucose 131 H 05/15/24 05:05: WBC 9.9, RBC 3.31 L, Hgb 9.6 L, Hct 29.6 L, MCV 89.4, MCH 29.0, MCHC 32.4, RDW Std Deviation 45.4 H, RDW Coeff of Gerhard 13.9, Plt Count 168, MPV 10.0, Immature Gran % (Auto) 0.400, Neut % (Auto) 58.2, Lymph % (Auto) 30.1, Long % (Auto) 6.3, Eos % (Auto) 4.7, Baso % (Auto) 0.3, Absolute Neuts (auto) 5.8, Absolute Lymphs (auto) 2.98, Nucleated RBC % 0, Sodium 137, Potassium 3.3, Chloride 108, Carbon Dioxide 17.6 L, Anion Gap 11, BUN 29 H, Creatinine 1.84 H, Estim Creat Clear Calc 27.49 L, Est GFR (MDRD) Non-Af 29 L, BUN/Creatinine Ratio15.8, Glucose 109 H, Calcium 7.9, Phosphorus 3.6, Magnesium 1.6 05/15/24 05:52: POC Glucose 92 Radiography Diagnostic Testing: Radiology Impression Renal Ultrasound 05/14/24 10:13 IMPRESSION: Bilateral renal cysts. A nonobstructive calculus in the right kidney. Reading Location: [facility]- Physical Exam Narrative GENERAL: cooperative HEENT: Atraumatic; normocephalic EYES; Anicteric, Normal Conjunctiva NECK; supple, normal thyroid, RESPIRATORY: Diminished to auscultation CARDIOVASCULAR: Regular S1 S2, GI: soft, normoactive bowel sounds, : No Renal angle tenderness; EXTREMITIES: No edema, no clubbing, MUSCULOSKELETAL: no muscle wasting NEURO: Awake; no lateralizing signs. SKIN: No Rash PSYCH; Flat affect Assessment & Plan Assessment/Plan (1) Intractable low back pain: (2) Fall: PLAN: Plan Patient is a 68-year-old lady who presented to the emergency department following a fall with significant back pain imaging studies demonstrated no obvious fracture patient was however found to have severe multilevel degenerative changes admitted to regular nursing floor for pain management 1. Fall with intractable back pain - imaging studies demonstrated no obvious fracture patient was however found to have severe multilevel degenerative changes admitted to regular nursing floor for pain management 2. Physical deconditioning secondary to debility following the fall ? Requested for PT OT eval and social worker delinquency prevention to assist with discharge planning 3. Acute kidney injury ? Creatinine on admission was 1.13 patient kidney function did bump up to 1.7 started on IV fluid with avoidance of potential nephrotoxic medications. Ordered renal ultrasound as part of patient's evaluation ? 05/15/2024Patient seen, patient kidney function did worsen. Renal ultrasound obtained the day prior demonstrated bilateral renal cyst and none obstructive calculus in the right kidney. Review of patient kidney function over the past year shows intermittent DURAN's. Consult subsequently placed to nephrology. 4. Dyslipidemia ?Patient is on statin therapy, continued at home dose 5. Hypertension ? Blood pressure controlled, home medications continued with dose adjustment as needed 6. History of peptic ulcer disease ?EGD performed on 01/04/2024 showed ulcers in the esophagus, duodenum, and gastric areas. Patient is on PPI 7. Diabetes mellitus type II -patient's oral 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s held. Placed on long acting insulin, Accu-Cheks a.c. and at bedtime and covered with sliding scale insulin 8. History of Takotsubo cardiomyopathy ? Remains stable 9. History of renal artery stenosis ? Remains stable 10. Paroxysmal atrial fibrillation ? Rate controlled on carvedilol and systemic anticoagulation with apixaban 11. Depression with anxiety ? Patient is on BuSpar as well as fluoxetine continue 12. Obstructive sleep apnea ? Consistent use of PAP therapy encouraged 13. DVT prophylaxis ? Patient is on apixaban Time spent in the patient's overall evaluation,decision-making process, review of diagnostic data, adjustment of management, discussion with other providers, nursing nursing and ancillary staff involved in patient's care documentation, 40minutes Charges/Coding Visit Charges Inpatient E&M: 34258 Subs Hosp L2 05/15/24 1104 <Electronically signed by Anuja Murcia MD> Cosigner Signature (if applicable): CC: ~ Signed [facility] Work Phone: 1(314) 559-986504-02-2025 Radiology Diagnostic study [facility]04-02-2025 Progress note Author Anuja Murcia [facility] Note Date/Time May 14, 2024 10:1 8am [facility] Medical Records Department [address] [place] [address] Progress Note - Hospitalist 05/14/24 1011 MR#: [id number] Acct: [id number] Name: DONNA MARSH Rep #:[id number] : 1955 68 From: Anuja Murcia MD PCP: Rudy Boyer NP-Madelyn Status:ADM DANIEL Location: [place] [address] Reason for Visit Reason for Visit: Diagnoses Other low back pain (05/13/24) Unspecified fall, initial encounter (05/13/24) Subjective Subjective Patient is a 68-year-old lady who presented to the emergency department following a fall with significant back pain imaging studies demonstrated no obvious fracture patient was however found to have severe multilevel degenerative changes admitted to regular nursing floor for pain management Objective Data Objective Data Vital Signs: Vital Signs Temp Pulse Resp BP Pulse Ox O2 Del Method 98.8 F 114 H 18 100/58 L 97 Room Air 05/14/24 04:31 05/14/24 04:31 05/14/24 04:31 05/14/24 04:31 05/14/24 08:25 05/14/24 10:00 Oxygen Delivery Method Room Air Weight: 64.5 kg Body Mass Index (BMI) 25.2 Intake & Output: Intake and Output for Last 24 Hours 05/12/24 05/13/24 05/14/24 23:59 23:59 23:59 Intake Total 1090 / 1090 Balance 1090 / 1090 Lab / Micro Data 05/14/24 05:44 05/14/24 05:44 Labs: Laboratory Results - last 24 hr 05/13/24 17:55: WBC 17.0 H, RBC 4.78, Hgb 13.9, Hct 41.4, MCV 86.6, MCH 29.1, MCHC 33.6, RDW Std Deviation 41.1, RDW Coeff of Gerhard 13.2, Plt Count 296, MPV 9.4, Immature Gran % (Auto) 0.800, Neut % (Auto) 87.9 H, Lymph % (Auto) 5.0 L, Long % (Auto) 6.1, Eos % (Auto) 0.1, Baso % (Auto) 0.1, Absolute Neuts (auto) 15.0 H, Absolute Lymphs (auto) 0.85, Nucleated RBC % 0, Sodium 137, Potassium 3.8, Chloride 103, Carbon Dioxide 13.8 L, Anion Gap 21 H, BUN 17, Creatinine 1.13, Estim Creat Clear Calc 45.46 L, Est GFR (MDRD) Non-Af 52 L, BUN/CreatinineRatio 14.7, Glucose 177 H, Calcium 9.6, Procalcitonin 0.08 05/13/24 18:30: Urine Color Yellow, Urine Clarity Clear, Urine pH 6.0, Ur Specific [place] 1.010, Urine Protein 100 H, Urine Glucose (UA) 50 H, Urine Ketones 15 H, Urine Occult Blood 10 H, Urine Nitrite Negative, Urine Bilirubin Negative, Urine Urobilinogen Normal, Ur Leukocyte Esterase Negative, Urine RBC 0SEEN, Urine WBC 0-5 SEEN, Ur Squamous Epith Cells 0 SEEN, Urine Bacteria 0 SEEN,Urine Mucus 0 SEEN 05/13/24 23:30: POC Glucose 350 H 05/14/24 05:44: WBC 14.5 H, RBC 4.53, Hgb 13.0, Hct 39.9, MCV 88.1, MCH 28.7, MCHC 32.6, RDW Std Deviation 43.6, RDW Coeff of Gerhard 13.5, Plt Count 286, MPV 9.6, Immature Gran % (Auto) 0.500, Neut % (Auto) 84.6 H, Lymph % (Auto) 8.3 L, Long % (Auto) 6.4, Eos % (Auto) 0.1, Baso % (Auto) 0.1, Absolute Neuts (auto) 12.3 H, Absolute Lymphs (auto) 1.20, Nucleated RBC % 0, Sodium 134, Potassium 3.6, Chloride 103, Carbon Dioxide 16.4 L, Anion Gap 15, BUN 23 H, Creatinine 1.79 H, Estim Creat Clear Calc 26.43 L, Est GFR (MDRD) Non-Af 30 L, BUN/Creatinine Ratio 12.7, Glucose 267 H, Calcium 8.8, Total Bilirubin 0.62, AST21, ALT 10, Alkaline Phosphatase 100, Total Protein 6.5, Albumin 3.7, Globulin 2.8, Albumin/Globulin Ratio 1.4 05/14/24 06:23: POC Glucose 254 H Radiography Diagnostic Testing: Radiology Impression Brain CT 05/13/24 16:45 IMPRESSION: 1. No acute intracranial finding. 2. Stable findings of chronic microvascular ischemic changes and age-related changes. Reading Location: [facility] Lumbar Spine CT 05/13/24 16:45 IMPRESSION: No obvious acute fracture. Severe multilevel degenerative changes, unchanged. Reading Location: [facility] Physical Exam Narrative GENERAL: cooperative HEENT: Atraumatic; normocephalic EYES; Anicteric, Normal Conjunctiva NECK; supple, normal thyroid, RESPIRATORY: Diminished to auscultation CARDIOVASCULAR: Regular S1 S2, GI: soft, normoactive bowel sounds, : No Renal angle tenderness; EXTREMITIES: No edema, no clubbing, MUSCULOSKELETAL: no muscle wasting NEURO: Awake; no lateralizing signs. SKIN: No Rash PSYCH; Flat affect Assessment & Plan Assessment/Plan (1) Intractable low back pain: (2) Fall: PLAN: Plan Patient is a 68-year-old lady who presented to the emergency department following a fall with significant back pain imaging studies demonstrated no obvious fracture patient was however found to have severe multilevel degenerative changes admitted to regular nursing floor for pain management 1. Fall with intractable back pain - imaging studies demonstrated no obvious fracture patient was however found to have severe multilevel degenerative changes admitted to regular nursing floor for pain management 2. Physical deconditioning secondary to debility following the fall ? Requested for PT OT eval and social worker delinquency prevention to assist with discharge planning 3. Acute kidney injury ? Creatinine on admission was 1.13 patient kidney function did bump up to 1.7 started on IV fluid with avoidance of potential nephrotoxic medications. Ordered renal ultrasound as part of patient's evaluation 4. Dyslipidemia ?Patient is on statin therapy, continued at home dose 5. Hypertension ? Blood pressure controlled, home medications continued with dose adjustment as needed 6. History of peptic ulcer disease ?EGD performed on 01/04/2024 showed ulcers in the esophagus, duodenum, and gastric areas. Patient is on PPI 7. Diabetes mellitus type II -patient's oral 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s held. Placed on long acting insulin, Accu-Cheks a.c. and at bedtime and covered with sliding scale insulin 8. History of Takotsubo cardiomyopathy ? Remains stable 9. History of renal artery stenosis ? Remains stable 10. Paroxysmal atrial fibrillation ? Rate controlled on carvedilol and systemic anticoagulation with apixaban 11. Depression with anxiety ? Patient is on BuSpar as well as fluoxetine continue 12. Obstructive sleep apnea ? Consistent use of PAP therapy encouraged 13. DVT prophylaxis ? Patient is on apixaban Time spent in the patient's overall evaluation,decision-making process, review of diagnostic data, adjustment of management, discussion with other providers, nursing nursing and ancillary staff involved in patient's care documentation, 53 Minutes Charges/Coding Visit Charges Inpatient E&M: 81060 [facility] Hosp 05/14/24 1018 <Electronically signed by Anuja Murcia MD> Cosigner Signature (if applicable): CC: ~ Signed [facility] Work Phone: [phone] History and physical note Author Kanwal Aguilar [facility] Note Date/Time May 13, 2024 10:5 1pm [facility] Medical Records Department [address] [place] [address] H&P Exam - Hospitalist 05/13/242135 MR#: [id number] Acct: [id number] Name: DONNA MARSH Rep #:[id number] : 1955 68 From: Kanwal Aguilar MD PCP: ORESTES Cano Status:ADM DANIEL Location: [place] [address] HPI - General General Date of Admission: 05/13/24 Date of Service: 05/13/24 Chief Complaint: Fall, intractable back pain HPI Narrative The patient is a 68 y/o F w/ PMHx: HTN, HLD, Anxiety and Depression/Bipolar disorder, GERD, Former tobacco use, BURKE, Chronic migraines, PAF, Psoriatic arthritis, Dementia unclear type as well as unclear extent with unclear behavioral disturbance history, Nonobstructive CAD w/ Takotsubo syndrome with reduced EF of 20% 09/2023, Diabetes mellitus type II who presents to the [facility] ED on 05/13/24 with history of recently again being discharged from skilled facility at home with chronic instability and falls unfortunately her bathroom attempted to bend over with mechanical fall with no trauma specifically or loss of consciousness aside from a skin tear to the right forearm but since then persistent lumbar back pain with spasms but no specific radicular pains or shooting pains prompting family to bring her in for treatment. She did report that she took some old oxycodone and since then has been having some nausea. Workup in the ED included T97.5, heart rate 100, BP 209/95, respiratory rate 25,96% on room air with most recent repeat assessment T97.2, heart rate 88, BP 214/114, respiratory rate 25, 95% on room air, CBC with WBC 17, hemoglobin 13.9,platelet 296 with left shift, BMP with carbon oxide 13.8, anion gap 21, BUN/creatinine 17/1.13, GFR 52, glucose 177, urinalysis with no obvious evidenceof UTI, CT brain with no acute intracranial findings with stable chronic microvascular ischemic changes and age-related changes, CT lumbar spine with no obvious acute fracture, severe multilevel degenerative changes which are unchanged from previous. In the ED patient ministered oxycodone 5 mg p.o. x 1, hydralazine 10 mg IV x 1, Valium 4 mg p.o. x 1, Tylenol 1000 mg p.o. x 1 as wellas tetanus update given small laceration upon her fall. [facility] Medical History Sepsis High anion gap metabolic acidosis Acute kidney injury Candidal intertrigo Acute UTI Recurrent falls Acute delirium Altered level of consciousness Acute encephalopathy Myocardial infarction type 2 Non-ST elevation MN (NSTEMI) Hiatal hernia Irritable bowel Back pain due to injury Restless legs Injury of head and neck High cholesterol Hearing loss, right Bipolar disorder Depression Anxiety GERD (gastroesophageal reflux disease) Former smoker Sleep apnea Atrial fibrillation Migraines Dementia Closed intertrochanteric fracture of left hip Psoriatic arthritis Nonobstructive atherosclerosis of coronary artery Obesity Type 2 diabetes mellitus Takotsubo syndrome Hyperlipidemia Essential (primary) hypertension NSTEMI (non-ST elevated myocardial infarction) (01/06/18) Home Medications ?Medication ?Instructions ?Recorded ?Last Taken ?Type apixaban 2.5 mg tablet (Eliquis) 2.5 mg PO BID blood t hinner 02/14/24 Unknown History ergocalciferol (vitamin D2) 1,250 1,250 mcg PO SA 11/0605/10/24 History mcg (50,000 unit) capsule (Vitamin D2) fexofenadine 180 mg tablet 180 mg PO DAILY 04/20/24 Un known History glipizide 10 mg tablet 10 mg PO DAILY 04/20/24 Unkn own History atorvastatin 20 mg tablet 20 mg PO QHS #0 tabs 5 05/12/24 Rx carvedilol 3.125 mg tablet 3.125 mg PO BIDCM #0 tabs 0 04/24/24 05/13/24 Rx fluoxetine 40 mg capsule 40 mg PO BID #0 caps 5 Unknown Rx gabapentin 100 mg capsule 100 mg PO TID #0 caps Unknown Rx pantoprazole 40 mg tablet,delayed 40 mg PO BID #0 tabs 04/24/24 Unknown Rx release tolterodine 4 mg capsule,extended 4 mg PO DAILY #0 cap s 04/24/24 Unknown Rx release 24 hr acetaminophen 325 mg tablet 650 mg PO Q4H PRN Fever, p ain 05/13/24 05/12/24 History buspirone 15 mg tablet 15 mg PO BID 05/13/24 Unknow n History donepezil 10 mg tablet 10 mg PO DAILY 05/13/24 Unkn own History mirabegron 50 mg tablet,extended 50 mg PO DAILY Unknown History release 24 hr Allergy/AdvReac Type Severity Reaction Status Date / Time morphine Allergy Mild confusion Verified 05/13/24 15:44 codeine Allergy Itching Verified 05/13/24 15:44 fentanyl AdvReac confusion Verified 05/13/24 15:44 naproxen AdvReac Other Verified 05/13/24 15:44 Family History Mother Cancer skin Father Cancer prostate Surgical History History of back surgery History of carpal tunnel release of both wrists History of hysterectomy History of left heart catheterization (01/07/18) Social History household members: spouse Smoking Status: Former smoker how long ago did patient quit smokin years ago alcohol intake: never substance use type: does not use caffeine: Yes Type: carbonated beverages Number of servings: 1 ROS ROS Narrative Admission Review of Systems: CONSTITUTIONAL: No weight loss, fever, chills, + weakness or fatigue. HEENT: Eyes: No visual loss, blurred vision, double vision or yellow sclerae. Ears, Nose, Throat: No hearing loss, sneezing, congestion, runny nose or sore throat. SKIN: No rash or itching, lesions, wounds. CARDIOVASCULAR: No chest pain, chest pressure or chest discomfort, palpitations,edema, orthopnea, syncopal events. RESPIRATORY: No shortness of breath, cough or sputum, wheezing, hemoptysis. GASTROINTESTINAL: + Complaining currently of some abdominal generalized discomfort, nausea, anorexia. No vomiting, diarrhea, abdominal pain, melena, BRBPR. GENITOURINARY: No dysuria, frequency, urgency or retention. NEUROLOGICAL: + Chronic underlying dementia, unclear specific extent, frequent falls. No headache, dizziness, syncope, paralysis, ataxia, numbness or tinglingin the extremities, focal weakness, change in bowel or bladder control, seizure. MUSCULOSKELETAL: + muscle, back pain, joint pain or stiffness. HEMATOLOGIC: No anemia. + Easy bleeding/bruising. LYMPHATICS: No enlarged nodes. No history of splenectomy. PSYCHIATRIC: + History of anxiety and depression/bipolar disorder. ENDOCRINOLOGIC: No reports of sweating, cold or heat intolerance. No polyuria orpolydipsia. ALLERGIES: No history of asthma, hives, eczema or rhinitis. Vital Signs Vital Signs Vital Signs: 05/13/24 15:45 05/13/24 15:50 05/13/24 18:04 Temperature 97.5 F L Temperature Source Oral Pulse Rate 100 115 H Respiratory Rate 25 H 20 H Respiratory Effort Normal Respiratory Depth Normal Respiratory Pattern Normal Blood Pressure 209/95 H 224/101 H Blood Pressure Mean 133 142 Pulse Ox 96 100 Oxygen Delivery Method Room Air Room Air 05/13/24 20:00 Temperature Temperature Source Pulse Rate 134 H Respiratory Rate Respiratory Effort Respiratory Depth Respiratory Pattern Blood Pressure 215/172 H Blood Pressure Mean 186 Pulse Ox 96 Oxygen Delivery Method Weight Weight: 154 lb 1.65 oz Body Mass Index (BMI) 25.6 Physical Exam Narrative Physical Examination: General: Awake, alert, oriented to self, place and some recent events but is notthe best historian with underlying dementia, remains cooperative, laying in the ED bed, reporting pain 8 out of 10 in severity. Skin: Normal color, normal turgor, no icterus, no cyanosis except occasional stage ecchymoses, abrasions, recent fall with forearm small laceration. HEENT: AT/NC, EOMI, PERRLA, moderately dry MM, no carotid bruits or JVD noted. Lungs: Mildly diminished, greater bases, mildly increased respiratory rate but no distress, no rales, ronchi or wheezing. Heart: Regular rate and rhythm; no gallop, rub audible. Abdomen: Soft, mild generalized discomfort with no rebound or guarding, nondistended, mildly hyperactive BS, no appreciated HSM. Extremities: No cyanosis, clubbing, or edema. Neurological: Patient awake, alert, oriented as noted, cognitive function decreased baseline with underlying dementia, suspect likely near baseline intactcurrently; pupils equally reactive to light and accommodation, cranial nerves grossly normal, moving all 4 extremities, no focal deficits, strength severely globally decreased secondary to acute presentation with fall compounded by underlying chronic, but disease Psychiatric: Affect appears uncomfortable, fatigued, anxious, no acute evidence of depressive feelings but does have underlying history. Results Lab / Micro Data 05/13/24 17:55 05/13/24 17:55 Labs: Laboratory Results - last 24 hr 05/13/24 17:55: WBC 17.0 H, RBC 4.78, Hgb 13.9, Hct 41.4, MCV 86.6, MCH 29.1, MCHC 33.6, RDW Std Deviation 41.1, RDW Coeff of Gerhard 13.2, Plt Count 296, MPV 9.4, Immature Gran % (Auto) 0.800, Neut % (Auto) 87.9 H, Lymph % (Auto) 5.0 L, Long % (Auto) 6.1, Eos % (Auto) 0.1, Baso % (Auto) 0.1, Absolute Neuts (auto) 15.0 H, Absolute Lymphs (auto) 0.85, Nucleated RBC % 0, Sodium 137, Potassium 3.8, Chloride 103, Carbon Dioxide 13.8 L, Anion Gap 21 H, BUN 17, Creatinine 1.13, Estim Creat Clear Calc 45.46 L, Est GFR (MDRD) Non-Af 52 L, BUN/CreatinineRatio 14.7, Glucose 177 H, Calcium 9.6 05/13/24 18:30: Urine Color Yellow, Urine Clarity Clear, Urine pH 6.0, Ur Specific [place] 1.010, Urine Protein 100 H, Urine Glucose (UA) 50 H, Urine Ketones 15 H, Urine Occult Blood 10 H, Urine Nitrite Negative, Urine Bilirubin Negative, Urine Urobilinogen Normal, Ur Leukocyte Esterase Negative, Urine RBC 0SEEN, Urine WBC 0-5 SEEN, Ur Squamous Epith Cells 0 SEEN, Urine Bacteria 0 SEEN,Urine Mucus 0 SEEN Imaging Radiology Impression Brain CT 05/13/24 16:45 IMPRESSION: 1. No acute intracranial finding. 2. Stable findings of chronic microvascular ischemic changes and age-related changes. Reading Location: [facility] Lumbar Spine CT 05/13/24 16:45 IMPRESSION: No obvious acute fracture. Severe multilevel degenerative changes, unchanged. Reading Location: [facility] Assessment & Plan Assessment/Plan (1) Intractable low back pain: (2) Fall: PLAN: Plan The patient is a 68 y/o F w/ PMHx: HTN, HLD, Anxiety and Depression/Bipolar disorder, GERD, Former tobacco use, BURKE, Chronic migraines, PAF, Psoriatic arthritis, Dementia unclear type as well as unclear extent with unclear behavioral disturbance history, Nonobstructive CAD w/ Takotsubo syndrome with reduced EF of 20% 09/2023, Diabetes mellitus type II who presents to the [facility] ED on 05/13/24 with history of recently again being discharged from skilled facility at home with chronic instability and falls unfortunately her bathroom attempted to bend over with mechanical fall with no trauma specifically or loss of consciousness aside from a skin tear to the right forearm but since then persistent lumbar back pain with spasms but no specific radicular pains or shooting pains prompting family to bring her in for treatment. #1. Mechanical fall with Acute on Chronic Intractable Back Pain: Will admit to PCU given BP in the ED elevated likely with pain and also significant nausea following recent narcotics in case of regimen needs per discussion with supervising nurse, will maintain on fall precautions, frequent positioning, initiate IV judicious short course toradol, lidocaine patches, tizanidine x 1 scheduled dose now and as needed follow, increase her gabapentin to 200 mg p.o. 3 times daily and may further adjust as needed, hold off on further narcotic therapies she has significant issues with that she notes, anti-emetics, bowel regimen. Will consult PT and OT for evaluation as well as Case management for discharge planning. #2. Leukocytosis, unclear etiology: Urinalysis not marked appearing, CBC with notable WBC elevation with left shift, possibly could be component of dehydration, will very judiciously hydrate, repeat CBC in a.m., procalcitonin requested. #3. Chronic Kidney Disease Stage II per GFR trend however has vacillated: Admission BUN/Cr 17/1.13, GFR 52, baseline renal function primarily 0.7-0.9, repeat BMP in AM. #4. Known right renal artery obstruction: Continued on Eliquis, statin, hypertensive regimen with adjustments as needed. #5. Hypertension: Will continue home regimen including Coreg with adjustments as needed, PRN IV hydralazine. #6. Hyperlipidemia: Continue home statin therapy. #7. Anxiety and depression/bipolar disorder: Continue home BuSpar and fluoxetine home regimen. #8. PAF: Continue home Eliquis and Coreg regimen. #9. Dementia, unclear type with unclear behavioral disturbance history: Complicates presentation, continue home Aricept regimen, will maintain on fall and aspiration precautions, PT/OT/case management consulted for discharge planning. #10. Former tobacco use: Encourage continued tobacco cessation. #11. BURKE: BiPAP nightly. #12. DVT prophylaxis: Continue home Eliquis regimen. #13. CODE status: Patient HCPOA and living will are not in place but her is her medical decision-maker if necessary. Full Code based on recent admission discussions. Charges/Coding Visit Charges Inpatient E&M: 31009 Init Hosp L2 05/13/24 0533 <Electronically signed by Kanwal Aguilar MD> Cosigner Signature (if applicable): CC: WALLPAPER PRINTER HELPERJarad Boyer; Dr. Kanwal Aguilar MD~ Signed [facility] Work Phone: [phone] 195-666804-02-2025 Discharge summary Author Adria Montenegro [facility] Note Date/Time May 13, 2024 10:3 6pm [facility] Medical Records Department [address] [place] [address] Emergency Department Summary 05/13/24 MR#: [id number] Acct: [id number] Name: DONNA MARSH Rep #:[id number] : 1955 68 From: Adria Montenegro MD PCP: ORESTES Cano Status:ADM DANIEL Location: [place] [address] HPI HPI - Fall History of Present Illness Chief Complaint: Fall Narrative Narrative: 68-year-old female past medical history of chronic bilateral hip pain as well aschronic low back pain presents status post fall. She states that she was in herbathroom and had a mechanical fall. She went to turn, and fell. She denies hitting her head or loss of consciousness. She sustained a skin tear to her right forearm. Her main concern is that she is having low back pain as well as low back spasms. She states that she tried taking oxycodone in the past, but could only take 2 tablets. She only takes Tylenol for pain now. No loss of bowel or bladder, no other injuries. She states that the pain in her low back is causing her anxiety as well. [facility] Medical History Sepsis High anion gap metabolic acidosis Acute kidney injury Candidal intertrigo Acute UTI Recurrent falls Acute delirium Altered level of consciousness Acute encephalopathy Myocardial infarction type 2 Non-ST elevation MN (NSTEMI) Hiatal hernia Irritable bowel Back pain due to injury Restless legs Injury of head and neck High cholesterol Hearing loss, right Bipolar disorder Depression Anxiety GERD (gastroesophageal reflux disease) Former smoker Sleep apnea Atrial fibrillation Migraines Dementia Closed intertrochanteric fracture of left hip Psoriatic arthritis Nonobstructive atherosclerosis of coronary artery Obesity Type 2 diabetes mellitus Takotsubo syndrome Hyperlipidemia Essential (primary) hypertension NSTEMI (non-ST elevated myocardial infarction) (01/06/18) Home Medications ?Medication ?Instructions ?Recorded ?Last Taken ?Type apixaban 2.5 mg tablet (Eliquis) 2.5 mg PO BID blood t hinner 02/14/24 Unknown History ergocalciferol (vitamin D2) 1,250 1,250 mcg PO SA 11/0605/10/24 History mcg (50,000 unit) capsule (Vitamin D2) fexofenadine 180 mg tablet 180 mg PO DAILY 04/20/24 Un known History glipizide 10 mg tablet 10 mg PO DAILY 04/20/24 Unkn own History atorvastatin 20 mg tablet 20 mg PO QHS #0 tabs 5 05/12/24 Rx carvedilol 3.125 mg tablet 3.125 mg PO BIDCM #0 tabs 0 04/24/24 05/13/24 Rx fluoxetine 40 mg capsule 40 mg PO BID #0 caps 5 Unknown Rx gabapentin 100 mg capsule 100 mg PO TID #0 caps Unknown Rx pantoprazole 40 mg tablet,delayed 40 mg PO BID #0 tabs 04/24/24 Unknown Rx release tolterodine 4 mg capsule,extended 4 mg PO DAILY #0 cap s 04/24/24 Unknown Rx release 24 hr acetaminophen 325 mg tablet 650 mg PO Q4H PRN Fever, p ain 05/13/24 05/12/24 History buspirone 15 mg tablet 15 mg PO BID 05/13/24 Unknow n History donepezil 10 mg tablet 10 mg PO DAILY 05/13/24 Unkn own History mirabegron 50 mg tablet,extended 50 mg PO DAILY Unknown History release 24 hr Allergy/AdvReac Type Severity Reaction Status Date / Time morphine Allergy Mild confusion Verified 05/13/24 15:44 codeine Allergy Itching Verified 05/13/24 15:44 fentanyl AdvReac confusion Verified 05/13/24 15:44 naproxen AdvReac Other Verified 05/13/24 15:44 Family History Mother Cancer skin Father Cancer prostate Surgical History History of back surgery History of carpal tunnel release of both wrists History of hysterectomy History of left heart catheterization (01/07/18) Social History household members: spouse Smoking Status: Former smoker how long ago did patient quit smokin years ago alcohol intake: never substance use type: does not use caffeine: Yes Type: carbonated beverages Number of servings: 1 ROS ROS ED ROS Narrative Review of systems positive for low back pain with muscle spasms. She has chronic bilateral hip pain. No hitting of head or loss of consciousness. No prodromal chest pain or shortness of breath. Has skin tear on right forearm butdenies any pain. EXAM Physical Exam Narrative Exam Narrative: GCS 15. ABCs intact. Examination of the back is limited secondary to muscle spasms. Cardiovascular examination reveals a regular rate and rhythm. Lungs are clear to auscultation bilaterally. The abdomen is soft and nontender with normal active bowel sounds. Pelvis stable. She has full range of motion of herbilateral upper extremities and able to flex and extend at the bilateral hips and knees. Skin examination does show skin tear on the right forearm without active bleeding. There is approximately 2-1/2 cm. Const Vital Signs: 05/13/24 15:45 05/13/24 15:50 05/13/24 18:04 Temperature 97.5 F L Temperature Source Oral Pulse Rate 100 115 H Respiratory Rate 25 H 20 H Respiratory Effort Normal Respiratory Depth Normal Respiratory Pattern Normal Blood Pressure 209/95 H 224/101 H Blood Pressure Mean 133 142 Pulse Ox 96 100 Oxygen Delivery Method Room Air Room Air 05/13/24 20:00 Temperature Temperature Source Pulse Rate 134 H Respiratory Rate Respiratory Effort Respiratory Depth Respiratory Pattern Blood Pressure 215/172 H Blood Pressure Mean 186 Pulse Ox 96 Oxygen Delivery Method MDM MDM MDM Narrative Medical decision making narrative: No feel differential diagnosis is applicable. I do not feel that x-rays need kajal obtained of the forearm as she is having no bony pain. She was given an Adacel/booster X intramuscular injection as she states her tetanus immunization is over 10 years old. In review of her problem list she had opioid withdrawal in the past and states she has allergies to morphine, codeine, fentanyl, and naproxen. Hence, for analgesia she was given a gram of Tylenol orally and for muscle spasm/anxiety she was given 4 mg of Valium orally. CT was obtained of the lumbar spine to rule out fracture versus lumbosacral strain. I reviewed the radiology report after reviewing the imaging of the CT of the lumbar spine. There is DJD but no evidence of an acute fracture. Additionally,patient had told the CT techs that she may have hit her head but was unsure. CTof the brain was obtained and I reviewed the radiology report and there is no evidence of an acute hemorrhage. Upon repeat examination, patient states that she is unable to ambulate in this continuing to have pain. They state that she was [facility] and just got out. Attempt was made at ambulation, but patient was unableto do so. She asked for additional pain medications so she was administered oxycodone 5 mg orally. As she is unable to ambulate I obtained laboratory work and reviewed it and she has a leukocytosis of 17.0 which I think is more nonspecific mainly because she has had elevated WBC count in the past, hemoglobin normal at 13.9 with hematocrit 41.4, platelet count 296. BUN of 17 and creatinine 1.13, glucose elevated at 177. Anion gap elevated at 21 but I donot think she has a diabetic ketoacidosis. I think is secondary to a carbon dioxide of 13.8. Urinalysis negative for infection. I do not feel antibiotics are indicated. As she is unable to ambulate, I will discuss the patient with the hospitalist for at least observation and PT OT consult. Patient discussed with Dr. Kanwal Aguilar. She was assigned to observation on the general medical floor. She is in stable condition. History & Record Review Discussion w/independent historian: Patient and Family Lab Data Attestation: I reviewed the patient's lab results. Labs: Laboratory Results - last 24 hr 05/13/24 05/13/24 17:55 18:30 WBC 17.0 H RBC 4.78 Hgb 13.9 Hct 41.4 MCV 86.6 MCH 29.1 MCHC 33.6 RDW Std Deviation 41.1 RDW Coeff of Gerhard 13.2 Plt Count 296 MPV 9.4 Immature Gran % (Auto) 0.800 Neut % (Auto) 87.9 H Lymph % (Auto) 5.0 L Long % (Auto) 6.1 Eos % (Auto) 0.1 Baso % (Auto) 0.1 Absolute Neuts (auto) 15.0 H Absolute Lymphs (auto) 0.85 Nucleated RBC % 0 Sodium 137 Potassium 3.8 Chloride 103 Carbon Dioxide 13.8 L Anion Gap 21 H BUN 17 Creatinine 1.13 Estim Creat Clear Calc 45.46 L Est GFR (MDRD) Non-Af 52 L BUN/Creatinine Ratio 14.7 Glucose 177 H Calcium 9.6 Urine Color Yellow Urine Clarity Clear Urine pH 6.0 Ur Specific [place] 1.010 Urine Protein 100 H Urine Glucose (UA) 50 H Urine Ketones 15 H Urine Occult Blood 10 H Urine Nitrite Negative Urine Bilirubin Negative Urine Urobilinogen Normal Ur Leukocyte Esterase Negative Urine RBC 0 SEEN Urine WBC 0-5 SEEN Ur Squamous Epith Cells 0 SEEN Urine Bacteria 0 SEEN Urine Mucus 0 SEEN Radiography Diagnostic Testing: Clinical Impression(s) from Imaging Studies Brain CT 05/13/24 16:45 IMPRESSION: 1. No acute intracranial finding. 2. Stable findings of chronic microvascular ischemic changes and age-related changes. Reading Location: [facility] Lumbar Spine CT 05/13/24 16:45 IMPRESSION: No obvious acute fracture. Severe multilevel degenerative changes, unchanged. Reading Location: [facility] Discharge Plan Triage Chief Complaint: Fall ED Provider: Adria Montenegro Dx/Rx/DC Orders Clinical Impression: Fall, Intractable low back pain, Inability to walk Primary Care Provider: Rudy Boyer What to do if you have Problems For any increased pain, shortness of breath, bleeding, nausea or vomiting, chestpain, or any unexpected problems, contact your Primary Care Provider. Call [facility] ([phone]) or report to the closest Emergency Room. Call 911 if necessary. 05/13/242235 <Electronically signed by Adria Montenegro MD> Cosigner Signature (if applicable): CC: ORESTES Boyer ~ Signed [facility] Work Phone: 1(940) 298-629604-01-2025 Radiology Diagnostic study [facility]04-01-2025 Radiology Diagnostic study [facility]04-01-2025 Discharge summary Author Adria Montenegro [facility] Note Date/Time May 13, 2024 10:3 6pm [facility] Medical Records Department [address] [place] [address] Emergency Department Summary 05/13/24 MR#: [id number] Acct: [id number] Name: MARSHDONNA Rep #:[id number] : 1955 68 From: Adria Montenegro MD PCP: Rudy Boyer NP-Madelyn Status:ADM DANIEL Location: [place] [address] HPI HPI - Fall History of Present Illness Chief Complaint: Fall Narrative Narrative: 68-year-old female past medical history of chronic bilateral hip pain as well aschronic low back pain presents status post fall. She states that she was in herbathroom and had a mechanical fall. She went to turn, and fell. She denies hitting her head or loss of consciousness. She sustained a skin tear to her right forearm. Her main concern is that she is having low back pain as well as low back spasms. She states that she tried taking oxycodone in the past, but could only take 2 tablets. She only takes Tylenol for pain now. No loss of bowel or bladder, no other injuries. She states that the pain in her low back is causing her anxiety as well. [facility] Medical History Sepsis High anion gap metabolic acidosis Acute kidney injury Candidal intertrigo Acute UTI Recurrent falls Acute delirium Altered level of consciousness Acute encephalopathy Myocardial infarction type 2 Non-ST elevation [place] (NSTEMI) Hiatal hernia Irritable bowel Back pain due to injury Restless legs Injury of head and neck High cholesterol Hearing loss, right Bipolar disorder Depression Anxiety GERD (gastroesophageal reflux disease) Former smoker Sleep apnea Atrial fibrillation Migraines Dementia Closed intertrochanteric fracture of left hip Psoriatic arthritis Nonobstructive atherosclerosis of coronary artery Obesity Type 2 diabetes mellitus Takotsubo syndrome Hyperlipidemia Essential (primary) hypertension NSTEMI (non-ST elevated myocardial infarction) (01/06/18) Home Medications ?Medication ?Instructions ?Recorded ?Last Taken ?Type apixaban 2.5 mg tablet (Eliquis) 2.5 mg PO BID blood t hinner 02/14/24 Unknown History ergocalciferol (vitamin D2) 1,250 1,250 mcg PO SA 11/0605/10/24 History mcg (50,000 unit) capsule (Vitamin D2) fexofenadine 180 mg tablet 180 mg PO DAILY 04/20/24 Un known History glipizide 10 mg tablet 10 mg PO DAILY 04/20/24 Unkn own History atorvastatin 20 mg tablet 20 mg PO QHS #0 tabs 5 05/12/24 Rx carvedilol 3.125 mg tablet 3.125 mg PO BIDCM #0 tabs 0 04/24/24 05/13/24 Rx fluoxetine 40 mg capsule 40 mg PO BID #0 caps 5 Unknown Rx gabapentin 100 mg capsule 100 mg PO TID #0 caps Unknown Rx pantoprazole 40 mg tablet,delayed 40 mg PO BID #0 tabs 04/24/24 Unknown Rx release tolterodine 4 mg capsule,extended 4 mg PO DAILY #0 cap s 04/24/24 Unknown Rx release 24 hr acetaminophen 325 mg tablet 650 mg PO Q4H PRN Fever, p ain 05/13/24 05/12/24 History buspirone 15 mg tablet 15 mg PO BID 05/13/24 Unknow n History donepezil 10 mg tablet 10 mg PO DAILY 05/13/24 Unkn own History mirabegron 50 mg tablet,extended 50 mg PO DAILY Unknown History release 24 hr Allergy/AdvReac Type Severity Reaction Status Date / Time morphine Allergy Mild confusion Verified 05/13/24 15:44 codeine Allergy Itching Verified 05/13/24 15:44 fentanyl AdvReac confusion Verified 05/13/24 15:44 naproxen AdvReac Other Verified 05/13/24 15:44 Family History Mother Cancer skin Father Cancer prostate Surgical History History of back surgery History of carpal tunnel release of both wrists History of hysterectomy History of left heart catheterization (01/07/18) Social History household members: spouse Smoking Status: Former smoker how long ago did patient quit smokin years ago alcohol intake: never substance use type: does not use caffeine: Yes Type: carbonated beverages Number of servings: 1 ROS ROS ED ROS Narrative Review of systems positive for low back pain with muscle spasms. She has chronic bilateral hip pain. No hitting of head or loss of consciousness. No prodromal chest pain or shortness of breath. Has skin tear on right forearm butdenies any pain. EXAM Physical Exam Narrative Exam Narrative: GCS 15. ABCs intact. Examination of the back is limited secondary to muscle spasms. Cardiovascular examination reveals a regular rate and rhythm. Lungs are clear to auscultation bilaterally. The abdomen is soft and nontender with normal active bowel sounds. Pelvis stable. She has full range of motion of herbilateral upper extremities and able to flex and extend at the bilateral hips and knees. Skin examination does show skin tear on the right forearm without active bleeding. There is approximately 2-1/2 cm. Const Vital Signs: 05/13/24 15:45 05/13/24 15:50 05/13/24 18:04 Temperature 97.5 F L Temperature Source Oral Pulse Rate 100 115 H Respiratory Rate 25 H 20 H Respiratory Effort Normal Respiratory Depth Normal Respiratory Pattern Normal Blood Pressure 209/95 H 224/101 H Blood Pressure Mean 133 142 Pulse Ox 96 100 Oxygen Delivery Method Room Air Room Air 05/13/24 20:00 Temperature Temperature Source Pulse Rate 134 H Respiratory Rate Respiratory Effort Respiratory Depth Respiratory Pattern Blood Pressure 215/172 H Blood Pressure Mean 186 Pulse Ox 96 Oxygen Delivery Method MDM MDM MDM Narrative Medical decision making narrative: No feel differential diagnosis is applicable. I do not feel that x-rays need kajal obtained of the forearm as she is having no bony pain. She was given an Adacel/booster X intramuscular injection as she states her tetanus immunization is over 10 years old. In review of her problem list she had opioid withdrawal in the past and states she has allergies to morphine, codeine, fentanyl, and naproxen. Hence, for analgesia she was given a gram of Tylenol orally and for muscle spasm/anxiety she was given 4 mg of Valium orally. CT was obtained of the lumbar spine to rule out fracture versus lumbosacral strain. I reviewed the radiology report after reviewing the imaging of the CT of the lumbar spine. There is DJD but no evidence of an acute fracture. Additionally,patient had told the CT techs that she may have hit her head but was unsure. CTof the brain was obtained and I reviewed the radiology report and there is no evidence of an acute hemorrhage. Upon repeat examination, patient states that she is unable to ambulate in this continuing to have pain. They state that she was recently [facility] and just got out. Attempt was made at ambulation, but patient was unableto do so. She asked for additional pain medications so she was administered oxycodone 5 mg orally. As she is unable to ambulate I obtained laboratory work and reviewed it and she has a leukocytosis of 17.0 which I think is more nonspecific mainly because she has had elevated WBC count in the past, hemoglobin normal at 13.9 with hematocrit 41.4, platelet count 296. BUN of 17 and creatinine 1.13, glucose elevated at 177. Anion gap elevated at 21 but I donot think she has a diabetic ketoacidosis. I think is secondary to a carbon dioxide of 13.8. Urinalysis negative for infection. I do not feel antibiotics are indicated. As she is unable to ambulate, I will discuss the patient with the hospitalist for at least observation and PT OT consult. Patient discussed with Dr. Kanwal Aguilar. She was assigned to observation on the general medical floor. She is in stable condition. History & Record Review Discussion w/independent historian: Patient and Family Lab Data Attestation: I reviewed the patient's lab results. Labs: Laboratory Results - last 24 hr 05/13/24 05/13/24 17:55 18:30 WBC 17.0 H RBC 4.78 Hgb 13.9 Hct 41.4 MCV 86.6 MCH 29.1 MCHC 33.6 RDW Std Deviation 41.1 RDW Coeff of Gerhard 13.2 Plt Count 296 MPV 9.4 Immature Gran % (Auto) 0.800 Neut % (Auto) 87.9 H Lymph % (Auto) 5.0 L Long % (Auto) 6.1 Eos % (Auto) 0.1 Baso % (Auto) 0.1 Absolute Neuts (auto) 15.0 H Absolute Lymphs (auto) 0.85 Nucleated RBC % 0 Sodium 137 Potassium 3.8 Chloride 103 Carbon Dioxide 13.8 L Anion Gap 21 H BUN 17 Creatinine 1.13 Estim Creat Clear Calc 45.46 L Est GFR (MDRD) Non-Af 52 L BUN/Creatinine Ratio 14.7 Glucose 177 H Calcium 9.6 Urine Color Yellow Urine Clarity Clear Urine pH 6.0 Ur Specific [place] 1.010 Urine Protein 100 H Urine Glucose (UA) 50 H Urine Ketones 15 H Urine Occult Blood 10 H Urine Nitrite Negative Urine Bilirubin Negative Urine Urobilinogen Normal Ur Leukocyte Esterase Negative Urine RBC 0 SEEN Urine WBC 0-5 SEEN Ur Squamous Epith Cells 0 SEEN Urine Bacteria 0 SEEN Urine Mucus 0 SEEN Radiography Diagnostic Testing: Clinical Impression(s) from Imaging Studies Brain CT 05/13/24 16:45 IMPRESSION: 1. No acute intracranial finding. 2. Stable findings of chronic microvascular ischemic changes and age-related changes. Reading Location: [facility] Lumbar Spine CT 05/13/24 16:45 IMPRESSION: No obvious acute fracture. Severe multilevel degenerative changes, unchanged. Reading Location: [facility] Discharge Plan Triage Chief Complaint: Fall ED Provider: Adria Montenegro Dx/Rx/DC Orders Clinical Impression: Fall, Intractable low back pain, Inability to walk Primary Care Provider: Rudy Boyer What to do if you have Problems For any increased pain, shortness of breath, bleeding, nausea or vomiting, chestpain, or any unexpected problems, contact your Primary Care Provider. Call [facility] ([phone]) or report to the closest Emergency Room. Call 911 if necessary. 05/13/246 <Electronically signed by Adria Montenegro MD> Cosigner Signature (if applicable): CC: WALLPAPER PRINTER HELPER-C Rudy Boyer ~ Signed [facility] Work Phone: 1(762) 297-262003-13-2025 Discharge summary Author [facility] Note Date/Time April 24, 2024 2:3 8pm [facility] Medical Records Department [address] [place] [id number] Transfer to [facility] MR#: [id number] Acct: [id number] Name: DONNA MARSH Rep #:[id number] : 1955 68 From: John Short DO PCP: ORESTES Cano Status:ADM IN Certification of patient admission REQUIRED AT TIME OF ADMISSION. I CERTIFY THAT POST-HOSPITAL ECF SERVICES ARE REQUIRED TO BE GIVEN ON AN IN-PATIENT BASIS BECAUSE OF THE ABOVE NAMED PATIENT'S NEED FOR USP CARE ON A CONTINUING BASIS FOR THE CONDITION(S) FOR WHICH HE/SHE WAS RECEIVING IN-PATIENT HOSPITAL SERVICES PRIOR TO HIS/HER TRANSFER TO THE [facility]. 04/24/24 1438<Electronically signed by John Tereletsky DO> Diet Diet Order/Speech Therapy: 04/22/24 13:16 Diet: Carbohydrate Controlled Food consistency:: Soft & Bite Sized Liquid Consistency:: Regular/Thin Dietary Modifications:: Cardiac / Heart Healthy 1800-calorie ADA diet, soft and bite sized, liquid consistency regular/thin; cardiac/heart healthy is not necessary Routine Orders/Code Status Routine Lab Work: - (Fingerstick blood sugars AC nightly x 1 week) Code Status: Full Code DC O2, CPAP, BIPAP needs Home O2 Discharge instructions: No Wound(s) LEFT HIP: Wound Type: Abrasion BILATERAL ELBOWS: Wound Type: Abrasion NECK: Wound Type: Hematoma Therapies Weight Bearing: Full weight bearing Physical Therapy: Eval and Treat Occupational Therapy: Eval and Treat Problem/Diagnosis (1) Acute encephalopathy: Status: Acute Code(s): G93.40 - Encephalopathy, unspecified (2) Altered level of consciousness: Status: Acute Code(s): R40.4 - Transient alteration of awareness (3) High anion gap metabolic acidosis: Status: Acute Code(s): E87.29 - Other acidosis Plan 1. Metabolic encephalopathy secondary to acute kidney injury from dehydration on a backdrop of dementia-patient's mental status is improved today, again patient's wants her to go to an extended care facility for short-term rehab services, we will try to locate a bed for her at the [facility]. I did talk to the patient's personally by phone, he states that he does not feel he is able to take care of the patient at the present time and would like her to have short- term rehab services. #2 acute kidney injury-secondary to dehydration, patient's creatinine is improved #3 dementia-complicates care, management, recovery, and prognosis #4 acute cystitis-patient is currently on Keflex, preliminary urine culture showed several organisms-this is probably a contaminated specimen. I will have the patient finish out 7 days of antibiotics-this means Keflex will be discontinued on 04/27/2024. #5 depression/bipolar disorder-complicates care, management, recovery, and prognosis #6 hypokalemia-patient was given potassium supplementation, BMP will be rechecked tomorrow #7 long-term use of anticoagulants-I made the decision to stop the patient's Eliquis due to her past history of peptic ulcer disease and my inability to determine why she was placed on Eliquis initially #8 type 2 diabetes by history-patient is receiving sliding scale insulin based on fingerstick blood sugars I do not feel the patient is septic, I do not feel the patient has rhabdomyolysis I will review the patient's home medications and make adjustments I feel are appropriate. Total clinical time spent by myself addressing the patient's medical issues, reviewing all of her data, and collaborating with patient's care team: 35 minutes Allergies/Procedures Done in Hospital Allergies morphine Allergy (Mild, Verified 04/20/24 15:06) confusion codeine Allergy (Verified 04/20/24 15:06) Itching fentanyl Adverse Reaction (Verified 04/20/24 15:06) confusion confusion x3 days naproxen Adverse Reaction (Verified 02/13/24 16:26) Other makes me jittery Procedures: None Type of Care/Length of Stay Estimated LOS: More Than 30 Days Type of Care Needed: Intermediate Rehab Potential: Good Prognosis: Good Additional Orders/Day of Discharge H&P will serve as current which was dated: 04/20/24 Day of Discharge: 04/24/24 Dietary and Speech Recommendations Dietitian Recommendations/Changes: Continue Carb Controlled diet to help manage medical conditions. Discharge Plan Admission Admit Date/Time: 04/20/24 19:19 Primary Reason for Your Visit: Encephalopathy, urinary tract infection Attending Provider: John Short Primary Care Provider: Rudy Boyer Consulting Providers: Kanwal gAuilar Discharge Orders/Prescriptions Prescriptions: New fluoxetine 40 mg Capsule 40 mg PO BID Qty: 0 0RF acetaminophen 325 mg Tablet 650 mg PO Q4H PRN PRN (Reason: Fever, pain 1-11/21) Qty: 0 0RF donepezil 5 mg Tablet 10 mg PO DAILY Qty: 0 0RF carvedilol 3.125 mg Tablet 3.125 mg PO BIDCM Qty: 0 0RF cephalexin 500 mg Capsule 500 mg PO Q8 Qty: 0 0RF Rx Instructions: Continue for a total of 10 more doses starting the evening of 04/24/2024, thendiscontinue- insulin lispro [Humalog KwikPen Insulin] 100 unit/mL Insulin Pen See Protocol subcut ACHS Qty: 0 0RF Protocol: 3. Sliding Scale Insulin Med Dosing Condition: 150-189 mg/dl = 1 unit Condition: 190-229 mg/dl = 2 units Condition: 230-269 mg/dl = 3 units Condition: 270-309 mg/dl = 4 units Condition: 310-349 mg/dl = 5 units Condition: 350-399 mg/dl = 6 units Condition: 400-449 mg/dl = 7 units Condition: Greater than 449 call physician Protocol Text: - Use for Total Daily Dose of Insulin 37-55 units - Obsese, infected, or steroid patients MEDIUM DOSING ALGORITHIM atorvastatin 20 mg Tablet 20 mg PO QHS Qty: 0 0RF tolterodine 4 mg Capsule,Extended Release 24hr 4 mg PO DAILY Qty: 0 0RF pantoprazole 40 mg Tablet,Delayed Release (Dr/Ec) 40 mg PO BID Qty: 0 0RF gabapentin 100 mg Capsule 100 mg PO TID Qty: 0 0RF Discontinued fluoxetine 40 MG capsule 40 mg PO BID simvastatin 40 mg tablet 40 mg PO QHS gabapentin 100 mg capsule 100 mg PO TID carvedilol 3.125 mg Tablet 3.125 mg PO BID 30 Days Qty: 60 0RF pantoprazole [Protonix] 40 mg tablet,delayed release (DR/EC) 40 mg PO BID 30 Days Qty: 60 1RF donepezil [Aricept] 5 mg tablet 5 mg PO DAILY oxybutynin chloride 15 mg tablet extended release 24hr 30 mg PO DAILY Patient Comments: [NO ORIGINAL SIG] No Action buspirone 7.5 MG tablet 22.5 mg PO BID Eliquis 2.5 mg tablet 2.5 mg PO BID glipizide 10 mg tablet 10 mg PO DAILY fexofenadine 180 mg tablet 180 mg PO DAILY ergocalciferol (vitamin D2) [Vitamin D2] 1,250 mcg (50,000 unit) capsule 1,250 mcg PO .COMPLEX Patient Comments: [NO ORIGINAL SIG] Rx Instructions: 1,250 mcg orally every other week on sunday; Referrals / Follow Up: Rudy Boyer NP-C [Primary Care Provider] - Disposition Disposition (needs filled in before D/C Order can be placed): NonSkilled NH/Intermed Care 04/24/24 9849 <Electronically signed by John Short DO> Cosigner Signature (if applicable): CC: ORESTES Boyer; Dr. Kanwal Aguilar MD ~ [facility] Work Phone: 1(543) 740-918803-13-2025 Discharge summary Author John Short [facility] Note Date/Time April 24, 2024 7:1 8pm [facility] Medical Records Department [address] [place] [address] Discharge Summary 04/24/24 1438 MR#: [id number] Acct: [id number] Name: DONNA MARSH Rep #:[id number] : 1955 68 From: John Short DO PCP: ORESTES Cano Status:ADM IN [place] [facility] [id number] Providers Date of Admission: 04/20/24 Date of Discharge: 04/24/24 Primary Care Physician: ORESTES Cano Consultations 04/20/24 21:16 Consult: Chief Dog License Inspector / Pulmonary Medicine Routine Consulting Provider: Intensivists/Pulmonary Med Reason for Consult: Sepsis, UTI, Enceph, DURAN, mild Rhabdo EMERGENT Consult: No MD Notified: Yes Date Notified: 04/20/24 Time Notified: 22:54 Method of Notification: Text Reason For Visit: SEPSIS UTI DURAN ENCEPHALOPATHY Diagnosis Discharge Diagnosis (1) Acute encephalopathy: Status: Acute Code(s): G93.40 - Encephalopathy, unspecified (2) Altered level of consciousness: Status: Acute Code(s): R40.4 - Transient alteration of awareness (3) High anion gap metabolic acidosis: Status: Acute Code(s): E87.29 - Other acidosis Plan 1. Metabolic encephalopathy secondary to acute kidney injury from dehydration on a backdrop of dementia-patient's mental status is improved today, again patient's wants her to go to an extended care facility for short-term rehab services, we will try to locate a bed for her at the [facility]. I did talk to the patient's personally by phone, he states that he does not feel he is able to take care of the patient at the present time and would like her to have short- term rehab services. #2 acute kidney injury-secondary to dehydration, patient's creatinine is improved #3 dementia-complicates care, management, recovery, and prognosis #4 acute cystitis-patient is currently on Keflex, preliminary urine culture showed several organisms-this is probably a contaminated specimen. I will have the patient finish out 7 days of antibiotics-this means Keflex will be discontinued on 04/27/2024. #5 depression/bipolar disorder-complicates care, management, recovery, and prognosis #6 hypokalemia-patient was given potassium supplementation, BMP will be rechecked tomorrow #7 long-term use of anticoagulants-I made the decision to stop the patient's Eliquis due to her past history of peptic ulcer disease and my inability to determine why she was placed on Eliquis initially #8 type 2 diabetes by history-patient is receiving sliding scale insulin based on fingerstick blood sugars I do not feel the patient is septic, I do not feel the patient has rhabdomyolysis I will review the patient's home medications and make adjustments I feel are appropriate. Total clinical time spent by myself addressing the patient's medical issues, reviewing all of her data, and collaborating with patient's care team: 35 minutes Medications at Discharge Home Medications buspirone 7.5 mg tablet 22.5 mg PO BID anxiety 01/06/18 apixaban 2.5 mg tablet (Eliquis) 2.5 mg PO BID blood thinner 02/14/24 ergocalciferol (vitamin D2) 1,250 mcg (50,000 unit) capsule (Vitamin D2) 1,250 mcg PO .COMPLEX 04/20/24 fexofenadine 180 mg tablet 180 mg PO DAILY 04/20/24 glipizide 10 mg tablet 10 mg PO DAILY 04/20/24 acetaminophen 325 mg tablet 650 mg (2 x 325 mg) PO Q4H PRN PRN Fever, pain - 11/21 #0 tabs 04/24/24 atorvastatin 20 mg tablet 20 mg PO QHS #0 tabs 04/24/24 carvedilol 3.125 mg tablet 3.125 mg PO BIDCM #0 tabs 04/24/24 cephalexin 500 mg capsule 500 mg PO Q8 #0 caps 04/24/24 donepezil 5 mg tablet 10 mg (2 x 5 mg) PO DAILY #0 tabs 04/24/24 fluoxetine 40 mg capsule 40 mg PO BID #0 caps 04/24/24 gabapentin 100 mg capsule 100 mg PO TID #0 caps 04/24/24 insulin lispro 100 unit/mL subcutaneous pen (Humalog KwikPen (U-100) Insulin) See Protocol subcut ACHS #0 mL 04/24/24 pantoprazole 40 mg tablet,delayed release 40 mg PO BID #0 tabs 04/24/24 tolterodine 4 mg capsule,extended release 24 hr 4 mg PO DAILY #0 caps 04/24/24 Hospital Course Operations None Procedures None Summary of Care Provided Minutes Spent on Discharge: 32 Hospital Course: This 68-year-old white female was seen in the emergency room at [facility] after being brought in by squad due to altered mental status at home. Patient's stated the patient has been confused for several days and he was concerned about a UTI. Labs obtained in the emergency room showed an elevated white blood cell count of 25, hemoglobin was 17.1, BUN was 47and creatinine was 1.57. Lactic acid was elevated at 3. UA showed 10-25 WBCs and +[address] showed no acute finding, chest CT showed no evidence of pneumonia. Patient was admitted to ICU for acute kidney injury, metabolic encephalopathy, and acute sepsis secondary to UTI. Patient was given IV antibiotics and fluids, this examiner did not feel the patient was septic however. Patient was seen in consultation by critical care and her mentation improved. Patient was seen by PT and OT, patient's requested the patient go to a residential facility for short-term rehab services, patient reluctantly agreed. On 04/24/2024, patient was seen and examined: On examination she appeared in goodhealth and spirits, she does not appear to be in any distress. Vital signs as documented. Skin warm and dry and without overt rashes. Neck without JVD, thyroid appears normal, trachea is midline, neck is supple. Lungs clear, normal air movement was noted. Heart exam notable for regular rhythm, normal sounds andabsence of murmurs, rubs or gallops. Abdomen unremarkable and without evidence of organomegaly, masses, or abdominal aortic enlargement, bowel sounds are present in all 4 quadrants, no abdominal tenderness was noted. Extremities nonedematous, no cyanosis was noted, no clubbing was noted. Neuro: Cranial nerves II through XII are grossly intact, no focal motor deficits were noted, sensation to light touch and pinprick is intact, motor exam 5/5 throughout. Psych: Patient is alert and oriented x3, she does not appear anxious or depressed, she does not appear agitated. Patient was discharged to an extended care facility in stable condition for short-term rehab services on 04/24/2024. Weight / BMI Weight Weight: 68.1 kg Body Mass Index (BMI) 25.0 ABG / Lab / Microbiology Data 04/23/24 10:30 04/23/24 05:00 Laboratory: Laboratory Results - last 24 hr 04/23/24 20:57: POC Glucose 210 H 04/24/24 08:16: POC Glucose 142 H 04/24/24 11:27: POC Glucose 171 H 04/24/24 16:51: POC Glucose 159 H Microbiology: Microbiology 04/20/24 15:30 Urine, Catheterized Urine Culture - Final Enterococcus faecalis Staphylococcus simulans Staphylococcus aureus 04/20/24 17:12 Blood Culture (Wb) - Right Hand Blood Culture - Preliminary No growth in 48 hours. 04/20/24 15:44 Blood Culture (Wb) - Right Forearm Blood Culture - Preliminary No growth in 48 hours. 04/20/24 21:27 Nasal Secretion MRSA (PCR) - Final 04/20/24 15:30 Mucosa - Nose SARS-CoV-2, Influenza & RSV (PCR) - Final D/C Instructions DC O2, CPAP, BIPAP Needs PSN CPAP & BiPAP: BiPAP & CPAP Settings per PSN Mode AVAPS 04/21/24 03:50 Bipap Delivery Device Face Mask 04/21/24 03:50 BiPAP Inspiratory Pressure 12 04/21/24 03:45 BiPAP Expiratory Pressure 8 04/21/24 03:50 BiPAP Rate 14 04/21/24 03:50 Fraction of Inspired Oxygen ( 30 04/21/24 06:00 FIO2) Home O2 Discharge instructions: No Meaningful Use Info Meaningful Use Meaningful Use Diagnoses (Choose all that apply): None applicable Ischemic Stroke Statin Dosing Therapy Reference: STATIN DOSE THERAPY REFERENCE: * Patients > 75 years receive moderate or high dose statin therapy. * Patients 75 years or YOUNGER should receive HIGH intensity statin dose unless contraindicated. You will be required to document reason for non-treatment if statin daily dose does not meet guidelines. HIGH DOSE STATIN THERAPY DAILY Atorvastatin > than or = to 40 mg Rosuvastatin > than or = to 20 mg Amlodipine + Atorvastatin > than or = to 2.5/40 mg Ezetimibe + Simvastatin 10/80 mg Simvastatin 80mg Discharge Plan Admission Admit Date/Time: 04/20/24 19:19 Primary Reason for Your Visit: Encephalopathy, urinary tract infection Attending Provider: John Short Primary Care Provider: Rudy Boyer Consulting Providers: Kanwal Aguilar Discharge Orders/Prescriptions Prescriptions: New fluoxetine 40 mg Capsule 40 mg PO BID Qty: 0 0RF acetaminophen 325 mg Tablet 650 mg PO Q4H PRN PRN (Reason: Fever, pain 1-11/21) Qty: 0 0RF donepezil 5 mg Tablet 10 mg PO DAILY Qty: 0 0RF carvedilol 3.125 mg Tablet 3.125 mg PO BIDCM Qty: 0 0RF cephalexin 500 mg Capsule 500 mg PO Q8 Qty: 0 0RF Rx Instructions: Continue for a total of 10 more doses starting the evening of 04/24/2024, thendiscontinue- insulin lispro [Humalog KwikPen Insulin] 100 unit/mL Insulin Pen See Protocol subcut ACHS Qty: 0 0RF Protocol: 3. Sliding Scale Insulin Med Dosing Condition: 150-189 mg/dl = 1 unit Condition: 190-229 mg/dl = 2 units Condition: 230-269 mg/dl = 3 units Condition: 270-309 mg/dl = 4 units Condition: 310-349 mg/dl = 5 units Condition: 350-399 mg/dl = 6 units Condition: 400-449 mg/dl = 7 units Condition: Greater than 449 call physician Protocol Text: - Use for Total Daily Dose of Insulin 37-55 units - Obsese, infected, or steroid patients MEDIUM DOSING ALGORITHIM atorvastatin 20 mg Tablet 20 mg PO QHS Qty: 0 0RF tolterodine 4 mg Capsule,Extended Release 24hr 4 mg PO DAILY Qty: 0 0RF pantoprazole 40 mg Tablet,Delayed Release (Dr/Ec) 40 mg PO BID Qty: 0 0RF gabapentin 100 mg Capsule 100 mg PO TID Qty: 0 0RF Discontinued fluoxetine 40 MG capsule 40 mg PO BID simvastatin 40 mg tablet 40 mg PO QHS gabapentin 100 mg capsule 100 mg PO TID carvedilol 3.125 mg Tablet 3.125 mg PO BID 30 Days Qty: 60 0RF pantoprazole [Protonix] 40 mg tablet,delayed release (DR/EC) 40 mg PO BID 30 Days Qty: 60 1RF donepezil [Aricept] 5 mg tablet 5 mg PO DAILY oxybutynin chloride 15 mg tablet extended release 24hr 30 mg PO DAILY Patient Comments: [NO ORIGINAL SIG] No Action buspirone 7.5 MG tablet 22.5 mg PO BID Eliquis 2.5 mg tablet 2.5 mg PO BID glipizide 10 mg tablet 10 mg PO DAILY fexofenadine 180 mg tablet 180 mg PO DAILY ergocalciferol (vitamin D2) [Vitamin D2] 1,250 mcg (50,000 unit) capsule 1,250 mcg PO .COMPLEX Patient Comments: [NO ORIGINAL SIG] Rx Instructions: 1,250 mcg orally every other week on sunday; Referrals / Follow Up: Rudy Boyer NP-C [Primary Care Provider] - Disposition Disposition (needs filled in before D/C Order can be placed): NonSkilled NH/Intermed Care Charges/Coding Visit Charges Inpatient E&M: 89579 Disch Hosp >30min 04/24/241917 <Electronically signed by John Short DO> Cosigner Signature (if applicable): CC: ORESTES Boyer; Dr. John Short DO~ Signed [facility] Work Phone: 1(145) 582-576003-13-2025 [facility]03-12-2025 Progress note Author [facility] Note Date/Time April 23, 2024 4:3 5pm [facility] Medical Records Department [address] [place] [address] Progress Note - Hospitalist 04/23/24 1623 MR#: [id number] Acct: [id number] Name: DONNA MARSH Rep #:[id number] : 1955 68 From: John Short DO PCP: ORESTES Cano Status:ADM IN Location: ICU CVICU20 4-1 Reason for Visit Reason for Visit: Diagnoses Sepsis, unspecified organism (04/20/24) Other acidosis (04/20/24) Urinary tract infection, site not specified (04/20/24) Transient alteration of awareness (04/20/24) Disorientation, unspecified (04/20/24) Subjective Subjective Patient was seen and examined today, she is alert and carries on a conversation,she appears appropriate. I talked to the patient's , he would like her to go to a residential facility for short-term rehab services, I discussed this with her and at first she did not agree with this but then seem to change her mind and agree for temporary placement at a residential facility. She told me to try [facility] the told me she had been out before Objective Data Objective Data Vital Signs: Vital Signs Temp Pulse Resp BP Pulse Ox O2 Del Method O2 Flow Rate 98.6 F 83 16 140/63 H 95 Room Air 2 04/23/24 15:35 04/23/24 15:35 04/23/24 15:35 04/23/24 15:35 04/23/24 15:35 04/23/24 15:35 04/22/24 08:30 FiO2 30 04/21/24 06:00 Oxygen Flow Rate (L/min) 2 Oxygen Delivery Method Room Air Weight: 70.4 kg Body Mass Index (BMI) 25.8 Intake & Output: Intake and Output for Last 24 Hours 04/21/24 04/22/24 04/23/24 23:59 23:59 23:59 Intake Total 4999.17 / 4999.17 2137.5 / 2137.5 50 / 50 Output Total 1185 / 1185 925 / 925 1200 / 1200 Balance 3814.17 / 3814.17 1212.5 / 1212.5 -1150 / -1150 Lab / Micro Data 04/23/24 10:30 04/23/24 05:00 Labs: Laboratory Results - last 24 hr 04/22/24 16:56: POC Glucose 145 H 04/22/24 21:42: POC Glucose 143 H 04/23/24 05:00: Sodium 144, Potassium 3.3, Chloride 111 H, Carbon Dioxide 23.1, Anion Gap 9, BUN 15, Creatinine 0.79, Estim Creat Clear Calc 64.42, Est GFR (MDRD) Non-Af 80, BUN/Creatinine Ratio 18.3, Glucose 112 H, Calcium 8.7 04/23/24 10:30: WBC 8.1, RBC 3.85 L, Hgb 11.2 L, Hct 35.1 L, MCV 91.2, MCH 29.1,MCHC 31.9 L, RDW Std Deviation 42.8, RDW Coeff of Gerhard 12.9, Plt Count 176, MPV 10.0, Immature Gran % (Auto) 0.400, Neut % (Auto) 68.5, Lymph % (Auto) 23.0, Long % (Auto) 6.2, Eos % (Auto) 1.8, Baso % (Auto) 0.1, Absolute Neuts (auto) 5.6, Absolute Lymphs (auto) 1.87, Nucleated RBC % 0 04/23/24 12:18: POC Glucose 153 H 04/23/24 15:31: POC Glucose 157 H Micro: Microbiology 04/20/24 17:12 Blood Culture (Wb) - Right Hand Blood Culture - Preliminary No growth in 48 hours. 04/20/24 15:44 Blood Culture (Wb) - Right Forearm Blood Culture - Preliminary No growth in 48 hours. 04/20/24 15:30 Urine, Catheterized Urine Culture - Preliminary Gram positive organism Gram positive organism#2 Gram positive organism#3 Gram positive organism#4 04/20/24 21:27 Nasal Secretion MRSA (PCR) - Final 04/20/24 15:30 Mucosa - Nose SARS-CoV-2, Influenza & RSV (PCR) - Final Physical Exam Const alert, oriented x3 and no apparent distress General Appearance: cooperative, well kempt and well developed Orientation / Consciousness: awake, oriented to person and oriented to place HEENT normocephalic, head/scalp atraumatic and moist oral mucous membranes Eyes PERRL, EOMs intact bilaterally and conjunctivae normal Neck supple, no JVD, thyroid normal and no carotid bruits General: trachea midline Resp normal respiratory effort, no retractions, no use of accessory muscles and clearto auscultation bilaterally Auscultation: Negative for rales, rhonchi or wheezes Cardio regular rate, regular rhythm, S1 normal heart sound, S2 normal heart sound, no murmurs, no rub and no gallops GI normal to inspection, nondistended, normoactive bowel sounds, soft to palpation,non-tender and non-distended Extremity no clubbing, cyanosis or edema Skin no rashes or lesions noted General Skin Exam: no breakdown Neuro CN's II-XII intact bilaterally, moves all extremities, no focal motor deficits and no sensory deficits noted Sensorium / Orientation: awake, alert, oriented to person and oriented to place Speech: speech normal Psych Psych Narrative: Patient is alert and carries on simple conversations with me appropriately. Assessment & Plan Assessment/Plan (1) Acute encephalopathy: (2) Altered level of consciousness: (3) High anion gap metabolic acidosis: PLAN: Plan 1. Metabolic encephalopathy secondary to acute kidney injury from dehydration on a backdrop of dementia-patient's mental status is improved today, again patient's wants her to go to an extended care facility for short-term rehab services, we will try to locate a bed for her at the [facility]. I did talk to the patient's personally by phone, he states that he does not feel he is able to take care of the patient at the present time and would like her to have short- term rehab services. #2 acute kidney injury-secondary to dehydration, patient's creatinine is improved #3 dementia-complicates care, management, recovery, and prognosis #4 acute cystitis-patient is currently on Keflex, preliminary urine culture showed several organisms-this is probably a contaminated specimen. I will have the patient finish out 7 days of antibiotics-this means Keflex will be discontinued on 04/27/2024. #5 depression/bipolar disorder-complicates care, management, recovery, and prognosis #6 hypokalemia-patient was given potassium supplementation, BMP will be rechecked tomorrow #7 long-term use of anticoagulants-I made the decision to stop the patient's Eliquis due to her past history of peptic ulcer disease and my inability to determine why she was placed on Eliquis initially I do not feel the patient is septic, I do not feel the patient has rhabdomyolysis I will review the patient's home medications and make adjustments I feel are appropriate. Total clinical time spent by myself addressing the patient's medical issues, reviewing all of her data, and collaborating with patient's care team: 35 minutes Charges/Coding Visit Charges Inpatient E&M: 63190 Subs Hosp L2 04/23/24 5142 <Electronically signed by John Short DO> Cosigner Signature (if applicable): CC: ~ Signed [facility] Work Phone: 1(397) 204-505103-11-2025 Progress note Author John Short [facility] Note Date/Time April 22, 2024 6:4 0pm [facility] Medical Records Department [address] [place] [address] Progress Note - Hospitalist 04/22/24 1740 MR#: [id number] Acct: [id number] Name: DONNA MARSH Rep #:[id number] : 1955 68 From: John Short DO PCP: ORESTES Cano Status:ADM IN Location: ICU [place] [address] 4-1 Reason for Visit Reason for Visit: Diagnoses Sepsis, unspecified organism (04/20/24) Other acidosis (04/20/24) Urinary tract infection, site not specified (04/20/24) Disorientation, unspecified (04/20/24) Subjective Subjective Patient was seen and examined today, she is more alert and is oriented as to self and place. Speech passed her for oral intake. Potassium was low this morning and I wrote for oral potassium supplementation Objective Data Objective Data Vital Signs: Vital Signs Temp Pulse Resp BP Pulse Ox O2 Del Method O2 Flow Rate 99.7 F H 80 18 122/79 H 97 Room Air 2 04/22/24 14:46 04/22/24 14:46 04/22/24 14:46 04/22/24 14:46 04/22/24 14:46 04/22/24 14:46 04/22/24 08:30 FiO2 30 04/21/24 06:00 Oxygen Flow Rate (L/min) 2 Oxygen Delivery Method Room Air Weight: 68.5 kg Body Mass Index (BMI) 25.1 Intake & Output: Intake and Output for Last 24 Hours 04/21/24 04/21/24 04/22/24 00:59 23:59 23:59 Intake Total 2160 / 2160 4999.17 / 4999.17 1137.5 / 1137.5 Output Total 100 / 160 1185 / 1185 925 / 925 Balance 2059 3814.17 / 3814.17 212.5 / 212.5 Lab / Micro Data 04/21/24 04:30 04/22/24 04:38 Labs: Laboratory Results - last 24 hr 04/21/24 21:24: POC Glucose 91 04/22/24 03:37: POC Glucose 105 04/22/24 04:38: Sodium 143, Potassium 2.9 L, Chloride 113 H, Carbon Dioxide 21.2, Anion Gap 9, BUN 23 H, Creatinine 0.91, Estim Creat Clear Calc 55.94, Est GFR (MDRD) Non-Af 68, BUN/Creatinine Ratio 25.6 H, Glucose 120 H, Calcium 8.2 04/22/24 08:38: POC Glucose 105 04/22/24 14:40: POC Glucose 159 H 04/22/24 16:56: POC Glucose 145 H Micro: Microbiology 04/20/24 15:30 Urine, Catheterized Urine Culture - Preliminary 04/20/24 21:27 Nasal Secretion MRSA (PCR) - Final 04/20/24 15:30 Mucosa - Nose SARS-CoV-2, Influenza & RSV (PCR) - Final Physical Exam Narrative alert and no apparent distress Constitutional Narrative: Patient is oriented as to person and place General Appearance: cooperative and well developed Orientation / Consciousness: awake HEENT normocephalic, head/scalp atraumatic and moist oral mucous membranes Eyes PERRL, EOMs intact bilaterally and conjunctivae normal Neck supple, no JVD, thyroid normal and no carotid bruits General: trachea midline Resp normal respiratory effort, no retractions, no use of accessory muscles and clearto auscultation bilaterally Auscultation: Negative for rales, rhonchi or wheezes Cardio regular rate, regular rhythm, S1 normal heart sound, S2 normal heart sound, no murmurs, no rub and no gallops GI normal to inspection, nondistended, normoactive bowel sounds, soft to palpation,non-tender and non-distended Extremity no clubbing, cyanosis or edema Skin no rashes or lesions noted General Skin Exam: no breakdown Neuro CN's II-XII intact bilaterally and no focal motor deficits Neuro Narrative: Patient is oriented as to person and place Sensorium / Orientation: awake and alert Psych Psych Narrative: Patient is oriented as to person and place Assessment & Plan Assessment/Plan (1) Altered level of consciousness: (2) High anion gap metabolic acidosis: PLAN: Plan 1. Metabolic encephalopathy secondary to acute kidney injury from dehydration on a backdrop of dementia-patient's mental status is improved today, she has been placed on oral intake today by speech therapy. #2 acute kidney injury-secondary to dehydration, patient's creatinine is improved, fluids will be discontinued today #3 dementia-complicates care, management, recovery, and prognosis #4 acute cystitis-continue IV Rocephin, await final urine culture, patient's preliminary culture shows no growth, I will transition patient over to oral antibiotics #5 depression/bipolar disorder-complicates care, management, recovery, and prognosis #6 hypokalemia-patient was given potassium supplementation, BMP will be rechecked tomorrow #7 long-term use of anticoagulants-it appears that the patient has been using Eliquis for an unknown length of time according to the , he thinks is dueto her Takotsubo's cardiomyopathy. There is an entry regarding atrial fibrillation in her chart from 2022, I cannot find any EKGs which show atrial fibrillation. Patient had peptic ulcer disease in 2023, I think it would be good idea to discontinue her Eliquis at this time. I do not feel the patient is septic, I do not feel the patient has rhabdomyolysis I will review the patient's home medications and make adjustments I feel are appropriate. Total clinical time spent by myself addressing the patient's medical issues, reviewing all of her data, and collaborating with patient's care team: 35 minutes Charges/Coding Visit Charges Inpatient E&M: 45964 Subs Hosp L2 04/22/24 1840 <Electronically signed by John Short DO> Cosigner Signature (if applicable): CC: ~ Signed [facility] Work Phone: 1(536) 456-326303-10-2025 Progress note Author [facility] Note Date/Time April 21, 2024 4:5 0pm [facility] Medical Records Department [address] [place] [address] Progress Note - Hospitalist 04/21/24 1642 MR#: [id number] Acct: [id number] Name: DONNA MRASH Rep #:[id number] : 1955 68 From: John Short DO PCP: ORESTES Cano Status:ADM IN Location: ICU CVICU20 4-1 Reason for Visit Reason for Visit: Diagnoses Sepsis, unspecified organism (04/20/24) Urinary tract infection, site not specified (04/20/24) Disorientation, unspecified (04/20/24) Subjective Subjective Patient was seen and examined today, she is n.p.o. due to her inability to participate with speech therapy. Objective Data Objective Data Vital Signs: Vital Signs Temp Pulse Resp BP Pulse Ox O2 Del Method O2 Flow Rate 98.8 F 82 17 160/94 H 95 Room Air 2 04/21/24 12:32 04/21/24 12:32 04/21/24 12:32 04/21/24 12:32 04/21/24 14:24 04/21/24 14:24 04/21/24 08:03 FiO2 30 04/21/24 06:00 Oxygen Flow Rate (L/min) 2 Oxygen Delivery Method Room Air Weight: 68.5 kg Body Mass Index (BMI) 25.1 Intake & Output: Intake and Output for Last 24 Hours 04/19/24 04/21/24 04/21/24 23:59 00:59 23:59 Intake Total 2160 / 2160 4160.00 / 4160.00 Output Total 100 / 160 385 / 385 Balance 2059 3775.00 / 3775.00 Lab / Micro Data 04/21/24 04:30 04/21/24 15:50 Labs: Laboratory Results - last 24 hr 04/20/24 15:30: Urine RBC 0-5 SEEN, Urine WBC 10-25 SEEN, Ur Squamous Epith Cells 0-5 SEEN, Urine Bacteria 2+, Urine Mucus 1+ 04/20/24 15:33: POC Glucose 194 H 04/20/24 15:44: Differential Comment SCANNED, Sodium 144, Potassium 4.0, Chloride 103, Carbon Dioxide 12.2 L, Anion Gap 29 H, BUN 47 H, Creatinine 1.57 H, Estim Creat Clear Calc 30.00 L, Est GFR (MDRD) Non-Af 35 L, BUN/Creatinine Ratio 29.9 H, Glucose 231 H, Lactic Acid 3.0 H*, Calcium 10.7, Phosphorus 2.2 L 04/20/24 15:44: Phosphorus Cancelled, Magnesium 2.1, Total Bilirubin 1.15, AST 70 H, ALT 25, Alkaline Phosphatase 114 H, Total Creatine Kinase 762 H, Total Protein 8.1, Albumin 4.5, Globulin 3.6, Albumin/Globulin Ratio 1.2, b-Hydroxybutyric mmol/L 3.5 04/20/24 22:32: POC Glucose 145 H 04/21/24 00:03: Lactic Acid 2.1 H 04/21/24 03:30: POC Glucose 122 H 04/21/24 04:30: WBC 16.2 H, RBC 4.29, Hgb 12.5, Hct 39.1, MCV 91.1 D, MCH 29.1,MCHC 32.0, RDW Std Deviation 44.0 H, RDW Coeff of Gerhard 13.2, Plt Count 237, MPV 9.8, Immature Gran % (Auto) 0.600, Neut % (Auto) 79.9 H, Lymph % (Auto) 11.4 L, Long % (Auto) 7.8, Eos % (Auto) 0.2, Baso % (Auto) 0.1, Absolute Neuts (auto) 13.0 H, Absolute Lymphs (auto) 1.85, Nucleated RBC % 0, Sodium 146 H, Potassium 3.7, Chloride 115 H, Carbon Dioxide 15.4 L, Anion Gap 16 H, BUN 47 H, Creatinine1.27 H, Estim Creat Clear Calc 40.08 L, Est GFR (MDRD) Non-Af 45 L, BUN/Creatinine Ratio 36.7 H, Glucose 142 H, Calcium 8.5, Total Bilirubin 0.43, AST 32, ALT 20, Alkaline Phosphatase 76, Total Creatine Kinase 239 H, Total Protein 5.8 L, Albumin 3.4, Globulin 2.4, Albumin/Globulin Ratio 1.4, b-Hydroxybutyric mmol/L 1.0 04/21/24 11:09: POC Glucose 89 04/21/24 15:08: POC Glucose 84 04/21/24 15:50: Sodium 148 H, Potassium 3.4, Chloride 118 H, Carbon Dioxide 20.1L, Anion Gap 10, BUN 34 H, Creatinine 0.93, Estim Creat Clear Calc 54.74, Est GFR (MDRD) Non-Af 66, BUN/Creatinine Ratio 36.5 H, Glucose 104 H, Calcium 8.0 Micro: Microbiology 04/20/24 15:30 Urine, Catheterized Urine Culture - Preliminary Culture exhibits no growth. 04/20/24 21:27 Nasal Secretion MRSA (PCR) - Final 04/20/24 15:30 Mucosa - Nose SARS-CoV-2, Influenza & RSV (PCR) - Final ABG Data ABG results: ABG 04/20/24 21:45 Specimen Type ART Sample Site R Brach pH 7.44 Bicarbonate Actual 20.6 L Total CO2 22 Base Excess -4 L O2 Saturation 95 O2 % 21.0 ABG pCO2 30.5 L ABG pO2 70 L Kyree Test Positive O2 Delivery Device Room Air Vent Mode Not entered Radiography Diagnostic Testing: Radiology Impression Chest CT 04/20/24 15:14 IMPRESSION: 1. Visualization is limited by motion artifact. No large focal consolidation orpleural effusion. 2. Severe coronary artery calcifications. One or more dose reduction techniques were used (e.g., Automated exposure control, adjustment of the mA and/or kV according to patient size, use of iterative reconstruction technique). Reading Location: [facility] Pelvis X-Ray 04/20/24 15:22 IMPRESSION: Chronic appearing bilateral trochanteric fractures, please correlate. Chronic bilateral pubic rami fractures, worse on the right. No definite acute displaced fracture or dislocation. Right femoral nailand left total hip prosthesis. Chronic compression fractures of the lower lumbar spine. Reading Location: [facility] Abdomen/Pelvis CT 04/20/24 19:49 IMPRESSION: 1. No acute process. 2. Multiple chronic/incidental findings as above. One or more dose reduction techniques were used (e.g., Automated exposure control, adjustment of the mA and/or kV according to patient size, use of iterative reconstruction technique). Reading Location: [facility] Echocardiogram 04/20/24 23:48 Interpretation Summary The estimated ejection fraction is 60 %. No evidence for diastolic dysfunction. Trivial mitral valve insufficiency. Trivial aortic valve insufficiency. Ordering Physician: Alden Finn Referring Physician: BAILEE GRANT Performed By: Daiana Cabello RCS Physical Exam Const alert and no apparent distress Constitutional Narrative: Patient is confused General Appearance: cooperative and well developed Orientation / Consciousness: awake HEENT normocephalic, head/scalp atraumatic and moist oral mucous membranes Eyes PERRL, EOMs intact bilaterally and conjunctivae normal Neck supple, no JVD, thyroid normal and no carotid bruits General: trachea midline Resp normal respiratory effort, no retractions, no use of accessory muscles and clearto auscultation bilaterally Auscultation: Negative for rales, rhonchi or wheezes Cardio regular rate, regular rhythm, S1 normal heart sound, S2 normal heart sound, no murmurs, no rub and no gallops GI normal to inspection, nondistended, normoactive bowel sounds, soft to palpation,non-tender and non-distended Extremity no clubbing, cyanosis or edema Skin no rashes or lesions noted General Skin Exam: no breakdown Neuro CN's II-XII intact bilaterally and no focal motor deficits Neuro Narrative: Patient is confused Sensorium / Orientation: awake and alert Psych Psych Narrative: Patient is confused Assessment & Plan Assessment/Plan (1) High anion gap metabolic acidosis: PLAN: Plan 1. Metabolic encephalopathy secondary to acute kidney injury from dehydration on a backdrop of dementia-I have elected to continue fluids with D5 half-normal saline at 75 cc an hour, labs will be rechecked tomorrow #2 acute kidney injury-secondary to dehydration, continue IV fluids, recheck labs #3 dementia-complicates care, management, recovery, and prognosis #4 acute cystitis-continue IV Rocephin, await final urine culture, patient's preliminary culture shows no growth #5 depression/bipolar disorder-complicates care, management, recovery, and prognosis I do not feel the patient is septic, I do not feel the patient has rhabdomyolysis Total clinical time spent by myself addressing the patient's medical issues, reviewing all of her data, and collaborating with patient's care team: 35 minutes Charges/Coding Visit Charges Inpatient E&M: 62987 Subs Hosp L2 04/21/24 1650 <Electronically signed by John Short DO> Cosigner Signature (if applicable): CC: ~ Signed [facility] Work Phone: [phone] Progress note Author Atul Quezada [facility] Note Date/Time April 21, 2024 11: 17am [facility] Medical Records Department [address] [place] [address] Progress Note - Chief Dog License Inspector 04/21/24 0741 MR#: [id number] Acct: [id number] Name: DONNA MARSH Rep #:[id number] : 1955 68 From: Atul Quezada DO PCP: ORESTES Cano Status:ADM IN Location: ICU CVICU20 4-1 Assessment & Plan Assessment/Plan (1) Acute delirium: PLAN: Plan RECOMMENDATIONS: 1. Continue gentle IV fluid hydration. 2. Continue empiric antibiotics pending cultures. 3. Continue appropriate DVT prophylaxis. 4. Check beta hydroxybutyrate level. If elevated, start insulin infusion. 5. Encourage incentive spirometer use and mobilize patient as tolerated. 6. Will sign off from a critical care perspective. Please call with any additional questions. IMPRESSIONS: 1. Altered mental status Most likely metabolic in etiology with concern for recurrent UTI versus mild DKA. Plan to continue IV fluid resuscitation as ordered. The patient will be maintained on antimicrobials, pending further infectious workup. In the interim, recommend checking beta hydroxybutyrate level, and if elevated, starting insulin infusion. Otherwise, the patient is clinically stable. Continue sliding scale insulin coverage for now. 2. Acute kidney injury Most likely prerenal in etiology. Creatinine is improving with volume expansion. Continue to monitor urine output for now. No current indication forrenal replacement therapy. 3. History of GI bleed/history of Takotsubo cardiomyopathy/hypertension/hyperlipidemia/paroxysmal atrial fibrillation Complicates care, management, recovery and prognosis. Continue home medicationsas indicated. This note was generated with [employer] dictation software. It may contain incorrectwords, spelling, and punctuation that were not noted in checking the note beforesigning. Subjective Subjective The patient was seen and examined at the bedside this morning. Events from the last 24 hours have been reviewed. The patient is currently afebrile, hemodynamically stable and maintaining appropriate oxygen saturations on 2 L/minvia nasal cannula. The patient was tolerant of PAP therapy overnight. White blood cell count is elevated at 16,000. Sodium is elevated at 146 with a chloride of 115 and creatinine of 1.27. The patient is currently documented to be overall net +3.9 L for the hospitalization. Objective Data Objective Data The patient's most recent lab work, culture data and imaging studies have all been personally reviewed. Blood and urine cultures are pending. Vital Signs: Vital Signs Temp Pulse Resp BP Pulse Ox O2 Del Method FiO2 97.2 F L 78 16 119/79 94 Bi-pap 30 04/21/24 06:00 04/21/24 06:00 04/21/24 06:00 04/21/24 06:00 04/21/24 06:00 04/21/24 06:00 04/21/24 06:00 Oxygen Delivery Method Bi-pap Weight: 151 lb 0.266 oz Body Mass Index (BMI) 25.1 Intake & Output: Intake and Output for Last 24 Hours 04/19/24 04/21/24 04/21/24 23:59 00:59 23:59 Intake Total 2160 / 2160 1641.67 / 1641.67 Output Total 100 / 160 145 / 145 Balance 2059 1496.67 / 1496.67 Lab / Micro Data Attestation: I reviewed the patient's lab results. 04/21/24 04:30 04/21/24 04:30 Labs: Laboratory Results - last 24 hr 04/20/24 15:30: Urine Color Yellow, Urine Clarity Sl. Cloudy, Urine pH 5.0, Ur Specific [place] 1.020, Urine Protein 500 H, Urine Glucose (UA) Normal, Urine Ketones 50 H, Urine Occult Blood 250 H, Urine Nitrite Negative, Urine Bilirubin 1 H, Urine Urobilinogen Normal, Ur Leukocyte Esterase 100 H, Urine RBC 0-5 SEEN,Urine WBC 10-25 SEEN, Ur Squamous Epith Cells 0-5 SEEN, Urine Bacteria 2+, UrineMucus 1+ 04/20/24 15:33: POC Glucose 194 H 04/20/24 15:44: WBC 25.0 H, RBC 5.89 H, Hgb 17.1 H, Hct 51.0 H, MCV 86.6, MCH 29.0, MCHC 33.5, RDW Std Deviation 40.4, RDW Coeff of Gerhard 13.0, Plt Count 359, MPV 9.6, Immature Gran % (Auto) 0.800, Neut % (Auto) 86.6 H, Lymph % (Auto) 6.9 L, Long % (Auto) 5.6, Eos % (Auto) 0.0, Baso % (Auto) 0.1, Absolute Neuts (auto)21.6 H, Absolute Lymphs (auto) 1.72, Nucleated RBC % 0, Differential Comment SCANNED, PT 15.1 H, INR 1.2, APTT 25.1, Sodium 144, Potassium 4.0, Chloride 103,Carbon Dioxide 12.2 L, Anion Gap 29 H, BUN 47 H, Creatinine 1.57 H, Estim Creat Clear Calc 30.00 L, Est GFR (MDRD) Non-Af 35 L, BUN/Creatinine Ratio 29.9 H, Glucose 231 H, Lactic Acid 3.0 H*, Calcium 10.7, Phosphorus 2.2 L 04/20/24 15:44: Phosphorus Cancelled, Magnesium 2.1, Total Bilirubin 1.15, AST 70 H, ALT 25, Alkaline Phosphatase 114 H, Total Creatine Kinase 762 H, Total Protein 8.1, Albumin 4.5, Globulin 3.6, Albumin/Globulin Ratio 1.2, b-Hydroxybutyric mmol/L 3.5 04/20/24 22:32: POC Glucose 145 H 04/21/24 00:03: Lactic Acid 2.1 H 04/21/24 03:30: POC Glucose 122 H 04/21/24 04:30: WBC 16.2 H, RBC 4.29, Hgb 12.5, Hct 39.1, MCV 91.1 D, MCH 29.1,MCHC 32.0, RDW Std Deviation 44.0 H, RDW Coeff of Gerhard 13.2, Plt Count 237, MPV 9.8, Immature Gran % (Auto) 0.600, Neut % (Auto) 79.9 H, Lymph % (Auto) 11.4 L, Long % (Auto) 7.8, Eos % (Auto) 0.2, Baso % (Auto) 0.1, Absolute Neuts (auto) 13.0 H, Absolute Lymphs (auto) 1.85, Nucleated RBC % 0, Sodium 146 H, Potassium 3.7, Chloride 115 H, Carbon Dioxide 15.4 L, Anion Gap 16 H, BUN 47 H, Creatinine1.27 H, Estim Creat Clear Calc 40.08 L, Est GFR (MDRD) Non-Af 45 L, BUN/Creatinine Ratio 36.7 H, Glucose 142 H, Calcium 8.5, Total Bilirubin 0.43, AST 32, ALT 20, Alkaline Phosphatase 76, Total Creatine Kinase 239 H, Total Protein 5.8 L, Albumin 3.4, Globulin 2.4, Albumin/Globulin Ratio 1.4 Micro: Microbiology 04/20/24 21:27 Nasal Secretion MRSA (PCR) - Final 04/20/24 15:30 Mucosa - Nose SARS-CoV-2, Influenza & RSV (PCR) - Final ABG Data ABG results: ABG 04/20/24 21:45 Specimen Type ART Sample Site R Brach pH 7.44 Bicarbonate Actual 20.6 L Total CO2 22 Base Excess -4 L O2 Saturation 95 O2 % 21.0 ABG pCO2 30.5 L ABG pO2 70 L Kyree Test Positive O2 Delivery Device Room Air Vent Mode Not entered Radiography Diagnostic Testing: Radiology Impression Brain CT 04/20/24 15:14 IMPRESSION: No acute finding. Stable chronic microvascular ischemic changes and age-relatedchanges. Reading Location: [facility] Cervical Spine CT 04/20/24 15:14 IMPRESSION: NO ACUTE CERVICAL FRACTURE. DEGENERATIVE CHANGES. One or more dose reduction techniques were used (e.g., Automated exposure control, adjustment of the mA and/or kV according to patient size, use of iterative reconstruction technique). Reading Location: [facility] Chest CT 04/20/24 15:14 IMPRESSION: 1. Visualization is limited by motion artifact. No large focal consolidation orpleural effusion. 2. Severe coronary artery calcifications. One or more dose reduction techniques were used (e.g., Automated exposure control, adjustment of the mA and/or kV according to patient size, use of iterative reconstruction technique). Reading Location: [facility] Pelvis X-Ray 04/20/24 15:22 IMPRESSION: Chronic appearing bilateral trochanteric fractures, please correlate. Chronic bilateral pubic rami fractures, worse on the right. No definite acute displaced fracture or dislocation. Right femoral nailand left total hip prosthesis. Chronic compression fractures of the lower lumbar spine. Reading Location: [facility] Abdomen/Pelvis CT 04/20/24 19:49 IMPRESSION: 1. No acute process. 2. Multiple chronic/incidental findings as above. One or more dose reduction techniques were used (e.g., Automated exposure control, adjustment of the mA and/or kV according to patient size, use of iterative reconstruction technique). Reading Location: [facility] Physical Exam Const alert and no apparent distress Constitutional Narrative: BiPAP mask currently in place. General Appearance: cooperative HEENT normocephalic and head/scalp atraumatic Eyes EOMs intact bilaterally, conjunctivae normal and no scleral icterus Neck supple General: trachea midline Chest inspection of chest normal Resp normal respiratory effort Auscultation: diminished lung sounds; Negative for rales, rhonchi or wheezes Cardio regular rate and regular rhythm GI normal to inspection, nondistended, normoactive bowel sounds Extremity no clubbing, cyanosis or edema Skin no rashes or lesions noted Neuro CN's II-XII intact bilaterally, moves all extremities and no focal motor deficits Psych Mood & Affect: flat affect Charges/Coding Visit Charges Inpatient E&M: 25162 Subs Hosp L2 04/21/24 1117 <Electronically signed by Atul Quezada DO> Cosigner Signature (if applicable): CC: ~ Signed [facility] Work Phone: [phone] Consult note Author Alden Finn [facility] Note Date/Time April 20, 2024 11:4 5pm [facility] Medical Records Department [address] [place] [address] Consultation - Chief Dog License Inspector 04/20/24 2331 MR#: [id number] Acct: [id number] Name: DONNA MARSH Rep #:[id number] : 1955 68 From: Alden cole MD PCP: ORESTES Cano Status:ADM IN Location: ICU CVICU20 4-1 HPI Consult Data Date of Consult: 04/20/24 HPI Narrative HPI Narrative: 68 y/o F w/ PMHx: HTN, HLD, Anxiety and Depression/Bipolar disorder, GERD, Former tobacco use, BURKE, Chronic migraines, PAF, Psoriatic arthritis, Dementia unclear type as well as unclear extent with unclear behavioral disturbance history, Nonobstructive CAD w/ Takotsubo syndrome with reduced EF of 20% 09/2023,Diabetes mellitus type II who has had several day hx of AMS. She has a similar presentation with UTIs. ED w/u with negative CT imaging but concerns for hyperglycemia, lacic acidosis and possibly severe sepsis. She is now admitted tot ICU. [facility] Medical History Myocardial infarction type 2 Non-ST elevation [place] (NSTEMI) Hiatal hernia Irritable bowel Back pain due to injury Restless legs Injury of head and neck High cholesterol Hearing loss, right Bipolar disorder Depression Anxiety GERD (gastroesophageal reflux disease) Former smoker Sleep apnea Atrial fibrillation Migraines Dementia Closed intertrochanteric fracture of left hip Psoriatic arthritis Nonobstructive atherosclerosis of coronary artery Obesity Type 2 diabetes mellitus Takotsubo syndrome Hyperlipidemia Essential (primary) hypertension NSTEMI (non-ST elevated myocardial infarction) (01/06/18) Home Medications ?Medication ?Instructions ?Recorded ?Last Taken ?Type buspirone 7.5 mg tablet 22.5 mg PO BID anxiety 01/06 Unknown History fluoxetine 40 mg capsule 40 mg PO BID anxiety 8 Unknown History gabapentin 100 mg capsule 100 mg PO TID pain 04/14/23 01/04/24 History simvastatin 40 mg tablet 40 mg PO QHS cholesterol 04/07 Unknown History carvedilol 3.125 mg tablet 3.125 mg PO BID bp 30 days #60 tabs 01/05/24 Unknown Rx pantoprazole 40 mg tablet,delayed 40 mg PO BID stomach 30 days #60 01/05/24 Unknown Rx release (Protonix) tabs apixaban 2.5 mg tablet (Eliquis) 2.5 mg PO BID blood t hinner 02/14/24 Unknown History donepezil 5 mg tablet (Aricept) 5 mg PO DAILY alzheime rs 02/14/24 Unknown History ergocalciferol (vitamin D2) 1,250 1,250 mcg PO .COMPLE X 04/20/24 Unknown History mcg (50,000 unit) capsule (Vitamin D2) fexofenadine 180 mg tablet 180 mg PO DAILY 04/20/24 Un known History glipizide 10 mg tablet 10 mg PO DAILY 04/20/24 Unkn own History oxybutynin chloride 15 mg 30 mg PO DAILY 04/20/24 Unkn own History tablet,extended release 24 hr Allergy/AdvReac Type Severity Reaction Status Date / Time morphine Allergy Mild confusion Verified 04/20/24 15:06 codeine Allergy Itching Verified 04/20/24 15:06 fentanyl AdvReac confusion Verified 04/20/24 15:06 naproxen AdvReac Other Verified 02/13/24 16:26 Family History Mother Cancer skin Father Cancer prostate Surgical History History of back surgery History of carpal tunnel release of both wrists History of hysterectomy History of left heart catheterization (01/07/18) Social History household members: spouse Smoking Status: Former smoker how long ago did patient quit smokin years ago alcohol intake: never substance use type: does not use caffeine: Yes Type: carbonated beverages Number of servings: 1 ROS ROS Narrative As per HPI Objective Data Objective Data Vital Signs: Vital Signs Last response 3 Temperature 36.9 C 04/20/24 21:20 Temperature Source Temporal 04/20/24 21:20 Pulse Rate 113 H 04/20/24 21:31 Respiratory Rate 18 04/20/24 21:20 Blood Pressure 173/100 H 04/20/24 21:20 Blood Pressure Mean 124 04/20/24 21:20 Blood Pressure Source Monitor 04/20/24 21:20 Blood Pressure Position Semi-Fowlers 04/20/24 21:20 Blood Pressure Location Right Arm 04/20/24 21:20 Pulse Ox 94 04/20/24 21:20 Oxygen Delivery Method Room Air 04/20/24 21:20 I&O: I&O Last 24 Hours 3 04/19/24 04/20/24 04/20/24 23:59 12:59 23:59 Intake Total 0 / 2160 Output Total 100 / 100 Balance 2059 / 2059 I&O: Total Stay 3 04/20/24 15:04 thru 04/20/24 23:30 Intake Total 2160 Output Total 100 Balance 2060 Current Meds Ordered / Administered: Current meds ordered / Administered 3 Generic Name Dose Route Start Last Admin Trade Name Ephraim PRN Reason Stop Dose Admin Acetaminophen 650 mg 04/20/24 21:16 Acetaminophen 650 Mg Suppository RC Q4H PRN PRN Fever, pain 1-10 Acetaminophen 650 mg 04/20/24 21:16 Acetaminophen 325 Mg Tablet PO Q4H PRN PRN Fever, pain 1-10/10 Al Hydroxide/Mg Hydroxide 30 ml 04/20/24 21:16 Mag Hydrox/Al Hydrox/Simeth 30 Ml Udc PO Q6H PRN PRN Gastric Burning Albuterol Sulfate 2.5 mg 04/20/24 21:16 Albuterol 2.5 Mg/3 Ml Vial.Neb. INHALATION Q2H PRN PRN Dyspnea, wheezing Aspirin 300 mg 04/20/24 21:16 04/20/24 22:27 Aspirin 300 Mg Suppository RC 300 mg DAILY REI Administration Calamine/Phenol 1 applic 04/20/24 22:00 04/20/24 22:27 Menthol/Lanolin/Calamine/Znox 113 Gm Tube TOPICAL 1 each 4X/DAY REI Administration Protocol Glucagon 1 mg 04/20/24 21:16 Glucagon 1 Mg/Ml Syringe IM X1 PRN HYPOGLYCEMIA Protocol Guaifenesin 10 ml 04/20/24 21:16 Guaifenesin 10 Ml Udc (200mg/10ml) PO Q4H PRN PRN COUGH Haloperidol Lactate 0.5 mg 04/20/24 21:16 Haloperidol Lactate 5 Mg/Ml Vial IV Q4H PRN PRN SEVERE AGITATION Protocol Heparin Sodium (Porcine) 5,000 unit 04/20/24 22:00 04/20/24 22:27 Heparin Injection (Vial) 5,000 Unit/Ml Vial SC 5,000 unit Q12 REI Administration Hydralazine HCl 10 mg 04/20/24 21:16 Hydralazine 20 Mg/Ml Vial IV Q4H PRN PRN SBP > 160 Protocol Sodium Chloride 1,000 mls @ 125 mls/hr 04/20/24 21:16 04/20/24 22:13 IV 04/21/24 09:15 125 mls/hr .Q8H REI Administration Protocol Ceftriaxone Sodium 2 gm/ 50 mls @ 100 mls/hr 04/21/24 10:00 Sodium Chloride IV Q24 REI Pantoprazole Sodium 40 mg/ 110 mls @ 330 mls/hr 04/20/24 22:00 04/20/24 23:30 Sodium Chloride IV Infused Q12 REI Infusion Dextrose 250 mls @ 0 mls/hr 04/20/24 21:16 Dextrose 10%-Water IV .Q0M PRN HYPOGLYCEMIA Protocol As Directed Sodium Chloride 100 mls @ 15 mls/hr 04/20/24 21:21 IV .Q6H40M PRN Saline Flush Sodium Chloride 100 mls @ 15 mls/hr 04/20/24 21:21 IV .Q6H40M PRN Additional IVPB Infusion Insulin Human Lispro 0 unit 04/20/24 21:16 04/20/24 22:32 Insulin Lispro 100 Unit/Ml Insuln.Pen SC Not Given Q6H [facility] Protocol Melatonin 3 mg 04/20/24 21:16 Melatonin 3 Mg Tablet PO QHS PRN PRN INSOMNIA Ondansetron HCl 4 mg 04/20/24 21:16 Ondansetron 4 Mg/2 Ml Vial IV Q8H PRN PRN NAUSEA/VOMITING Prochlorperazine Edisylate 5 mg 04/20/24 21:16 Prochlorperazine 10 Mg/2 Ml Vial IV Q4H PRN PRN Breakthrough Nausea/Vomiting Senna/Docusate Sodium 2 tablet 04/20/24 21:16 Senna/Docusate Sodium 1 Tablet PO BID PRN PRN Constipation Sodium Chloride 10 - 40 ml 04/20/24 21:21 0.9% Saline Lock 10 Ml Syringe IV UD PRN SALINE FLUSH Physical Exam Const no apparent distress Constitutional Narrative: Confused HEENT normocephalic HEENT Narrative: neck hematoma Eyes PERRL and EOMs intact bilaterally Chest inspection of chest normal Resp normal respiratory effort and no use of accessory muscles Cardio regular rate and regular rhythm GI GI Narrative: NT/ND Extremity no clubbing, cyanosis or edema Neuro moves all extremities and no focal motor deficits Lab / Micro Data 04/20/24 15:44 04/20/24 15:44 Labs: Laboratory Results - last 24 hr 04/20/24 15:30: Urine Color Yellow, Urine Clarity Sl. Cloudy, Urine pH 5.0, Ur Specific [place] 1.020, Urine Protein 500 H, Urine Glucose (UA) Normal, Urine Ketones 50 H, Urine Occult Blood 250 H, Urine Nitrite Negative, Urine Bilirubin 1 H, Urine Urobilinogen Normal, Ur Leukocyte Esterase 100 H, Urine RBC 0-5 SEEN,Urine WBC 10-25 SEEN, Ur Squamous Epith Cells 0-5 SEEN, Urine Bacteria 2+, UrineMucus 1+ 04/20/24 15:33: POC Glucose 194 H 04/20/24 15:44: WBC 25.0 H, RBC 5.89 H, Hgb 17.1 H, Hct 51.0 H, MCV 86.6, MCH 29.0, MCHC 33.5, RDW Std Deviation 40.4, RDW Coeff of Gerhard 13.0, Plt Count 359, MPV 9.6, Immature Gran % (Auto) 0.800, Neut % (Auto) 86.6 H, Lymph % (Auto) 6.9 L, Long % (Auto) 5.6, Eos % (Auto) 0.0, Baso % (Auto) 0.1, Absolute Neuts (auto)21.6 H, Absolute Lymphs (auto) 1.72, Nucleated RBC % 0, Differential Comment SCANNED, PT 15.1 H, INR 1.2, APTT 25.1, Sodium 144, Potassium 4.0, Chloride 103,Carbon Dioxide 12.2 L, Anion Gap 29 H, BUN 47 H, Creatinine 1.57 H, Estim Creat Clear Calc 30.00 L, Est GFR (MDRD) Non-Af 35 L, BUN/Creatinine Ratio 29.9 H, Glucose 231 H, Lactic Acid 3.0 H*, Calcium 10.7, Total Bilirubin 1.15, AST 70 H, ALT 25, Alkaline Phosphatase 114 H, Total Creatine Kinase 762 H, Total Protein 8.1, Albumin 4.5, Globulin 3.6, Albumin/Globulin Ratio 1.2 04/20/24 22:32: POC Glucose 145 H Micro: Microbiology 04/20/24 15:30 Mucosa - Nose SARS-CoV-2, Influenza & RSV (PCR) - Final ABG Data ABG results: ABG 04/20/24 21:45 Specimen Type ART Sample Site R Brach pH 7.44 Bicarbonate Actual 20.6 L Total CO2 22 Base Excess -4 L O2 Saturation 95 O2 % 21.0 ABG pCO2 30.5 L ABG pO2 70 L Kyree Test Positive O2 Delivery Device Room Air Vent Mode Not entered Imaging Radiology Impression Brain CT 04/20/24 15:14 IMPRESSION: No acute finding. Stable chronic microvascular ischemic changes and age-relatedchanges. Reading Location: [facility] Cervical Spine CT 04/20/24 15:14 IMPRESSION: NO ACUTE CERVICAL FRACTURE. DEGENERATIVE CHANGES. One or more dose reduction techniques were used (e.g., Automated exposure control, adjustment of the mA and/or kV according to patient size, use of iterative reconstruction technique). Reading Location: [facility] Chest CT 04/20/24 15:14 IMPRESSION: 1. Visualization is limited by motion artifact. No large focal consolidation orpleural effusion. 2. Severe coronary artery calcifications. One or more dose reduction techniques were used (e.g., Automated exposure control, adjustment of the mA and/or kV according to patient size, use of iterative reconstruction technique). Reading Location: [facility] Pelvis X-Ray 04/20/24 15:22 IMPRESSION: Chronic appearing bilateral trochanteric fractures, please correlate. Chronic bilateral pubic rami fractures, worse on the right. No definite acute displaced fracture or dislocation. Right femoral nailand left total hip prosthesis. Chronic compression fractures of the lower lumbar spine. Reading [facility] Abdomen/Pelvis CT 04/20/24 19:49 IMPRESSION: 1. No acute process. 2. Multiple chronic/incidental findings as above. One or more dose reduction techniques were used (e.g., Automated exposure control, adjustment of the mA and/or kV according to patient size, use of iterative reconstruction technique). Reading [facility] Assessment and Plan . Assessment and plan: Toxic Metabolic Encephalopathy DURAN AMS Sepsis ?UTI AGMA Lactic Acidosis pAF Hx of Dementia Plan - admit icu - CT Head negative - ?infectious etiology - Follow up cultures - continue abx (rocephin) - Repeat lactic acid - given IVF - Follow up BHB given AGMA but likely 2/2 lactic acidosis c/b DURAN - heparin for GI ppx - PPI for GI ppx Critical Care Time: 60 minutes The entirety of this encounter was done via Telemedicine 04/20/242344 <Electronically signed by Alden iFnn MD> Cosigner Signature (if applicable): CC: WALLPAPER PRINTER HELPER-C Rudy Boyer~ Signed [facility] Work Phone: [phone] 780-688103-09-2025 Discharge summary Author Monica Alvarado [facility] Note Date/Time April 20, 2024 9:45 pm [facility] Medical Records Department [address] [place] [address] Emergency Department Summary 04/20/24 MR#: [id number] Acct: [id number] Name: DONNA MARSH Rep #:[id number] : 1955 68 From: Monica VELÁSQUEZ PCP: ORESETS Cano Status:ADM IN Location: ICU CVICU20 4-1 HPI <DIDIER Ohara - Last Filed: 04/20/24 19:08> History of Present Illness Chief Complaint: Alt LOC Narrative Narrative: 68-year-old female past medical history of HTN, HLD, CKD, DM2, NSTEMI presents with altered mental status. History is gathered from EMS and the chart because they patient is altered. According to EMS her said she has been confused for several days and this happens when she gets UTIs. is not here so further history is limited. Patient's chart shows she is on Eliquis. PFS <DIDIER Ohara - Last Filed: 04/20/24 19:08> [facility] Medical History Myocardial infarction type 2 Non-ST elevation MN (NSTEMI) Hiatal hernia Irritable bowel Back pain due to injury Restless legs Injury of head and neck High cholesterol Hearing loss, right Bipolar disorder Depression Anxiety GERD (gastroesophageal reflux disease) Former smoker Sleep apnea Atrial fibrillation Migraines Dementia Closed intertrochanteric fracture of left hip Psoriatic arthritis Nonobstructive atherosclerosis of coronary artery Obesity Type 2 diabetes mellitus Takotsubo syndrome Hyperlipidemia Essential (primary) hypertension NSTEMI (non-ST elevated myocardial infarction) (01/06/18) Home Medications ?Medication ?Instructions ?Recorded ?Last Taken ?Type buspirone 7.5 mg tablet 22.5 mg PO BID anxiety 01/06 Unknown History fluoxetine 40 mg capsule 40 mg PO BID anxiety 8 Unknown History gabapentin 100 mg capsule 100 mg PO TID pain 04/14/23 01/04/24 History simvastatin 40 mg tablet 40 mg PO QHS cholesterol 04/07 Unknown History carvedilol 3.125 mg tablet 3.125 mg PO BID bp 30 days #60 tabs 01/05/24 Unknown Rx pantoprazole 40 mg tablet,delayed 40 mg PO BID stomach 30 days #60 01/05/24 Unknown Rx release (Protonix) tabs apixaban 2.5 mg tablet (Eliquis) 2.5 mg PO BID blood t hinner 02/14/24 Unknown History donepezil 5 mg tablet (Aricept) 5 mg PO DAILY alzheime rs 02/14/24 Unknown History ergocalciferol (vitamin D2) 1,250 1,250 mcg PO .COMPLE X 04/20/24 Unknown History mcg (50,000 unit) capsule (Vitamin D2) fexofenadine 180 mg tablet 180 mg PO DAILY 04/20/24 Un known History glipizide 10 mg tablet 10 mg PO DAILY 04/20/24 Unkn own History oxybutynin chloride 15 mg 30 mg PO DAILY 04/20/24 Unkn own History tablet,extended release 24 hr Allergy/AdvReac Type Severity Reaction Status Date / Time morphine Allergy Mild confusion Verified 04/20/24 15:06 codeine Allergy Itching Verified 04/20/24 15:06 fentanyl AdvReac confusion Verified 04/20/24 15:06 naproxen AdvReac Other Verified 02/13/24 16:26 Family History Mother Cancer skin Father Cancer prostate Surgical History History of back surgery History of carpal tunnel release of both wrists History of hysterectomy History of left heart catheterization (01/07/18) Social History household members: spouse Smoking Status: Former smoker how long ago did patient quit smokin years ago alcohol intake: never substance use type: does not use caffeine: Yes Type: carbonated beverages Number of servings: 1 ROS <DIDIER Ohara - Last Filed: 04/20/24 19:08> ROS ED ROS Narrative Unable to obtain due to altered mental status EXAM <DIDIER Ohara - Last Filed: 04/20/24 19:08> Physical Exam Narrative Exam Narrative: CONST: Patient moving around the bed and agitated. EYES: Normal inspection. PERRL. HEAD: Appears to be healing bruising on right lower face and anterior neck. NECK: Normal inspection. No step offs. RESP: No respiratory distress, CTAB. Large bruise on the middle of her chest. No deformity or crepitus. CVS: Regular rate and rhythm, no murmur, no gallop. ABD: Soft and nontender, no guarding or rebound, nondistended. Back: Normal inspection, no midline tenderness. SKIN: Moist erythematous skin with yellow-whitish discharge consistent with yeast in bilateral inguinal folds. EXTREMITIES: Normal appearance, moving all extremities, 2+ radial and DP pulses. NEURO: Alert and looking around the room, agitated, does not answer questions. PSYCH: Normal affect. Const Vital Signs: 04/20/24 15:06 04/20/24 15:10 04/20/24 15:59 Temperature 99.9 F H 99.9 F H Temperature Source Temporal Oral Pulse Rate 122 H Respiratory Rate 22 H Blood Pressure 169/95 H Blood Pressure Mean 119 Pulse Ox 88 98 98 Oxygen Delivery Method Room Air Room Air Room Air 04/20/24 16:02 04/20/24 16:10 04/20/24 17:00 Temperature 97.6 F L 97.6 F L 98.1 F Temperature Source Axillary Axillary Axillary Pulse Rate 145 H 124 H 116 H Respiratory Rate 18 18 13 Blood Pressure 160/93 H 159/67 H 131/75 H Blood Pressure Mean 115 97 93 Pulse Ox 99 100 100 Oxygen Delivery Method Room Air Room Air Room Air 04/20/24 18:00 Temperature 98.2 F Temperature Source Axillary Pulse Rate 118 H Respiratory Rate 19 H Blood Pressure 125/69 H Blood Pressure Mean 87 Pulse Ox 100 Oxygen Delivery Method Room Air <Dr. Joe Preston MD - Last Filed: 04/20/24 15:39> Physical Exam Const Vital Signs: 04/20/24 15:06 04/20/24 15:10 04/20/24 15:59 Temperature 99.9 F H 99.9 F H Temperature Source Temporal Oral Pulse Rate 122 H Respiratory Rate 22 H Blood Pressure 169/95 H Blood Pressure Mean 119 Pulse Ox 88 98 98 Oxygen Delivery Method Room Air Room Air Room Air 04/20/24 16:02 04/20/24 16:10 04/20/24 17:00 Temperature 97.6 F L 97.6 F L 98.1 F Temperature Source Axillary Axillary Axillary Pulse Rate 145 H 124 H 116 H Respiratory Rate 18 18 13 Blood Pressure 160/93 H 159/67 H 131/75 H Blood Pressure Mean 115 97 93 Pulse Ox 99 100 100 Oxygen Delivery Method Room Air Room Air Room Air 04/20/24 18:00 Temperature 98.2 F Temperature Source Axillary Pulse Rate 118 H Respiratory Rate 19 H Blood Pressure 125/69 H Blood Pressure Mean 87 Pulse Ox 100 Oxygen Delivery Method Room Air MDM <DIDIER Ohara - Last Filed: 04/20/24 19:08> MDM MDM Narrative Medical decision making narrative: History gathered from: Patient's Differential includes but not limited to 68-year-old female presents with altered mental status. According to her it has been x 3 days. Patient is awake but agitated and does not followcommands or answer questions. BP is 169/95, HR in the 120s, initially 88% on room air but then increased to 98% on room air or above. She is in no respiratory distress. She has a low-grade temperature of 99.9 ?F. She has very dry mucous membranes. She has scattered bruising along her neck in the middle of her chest which appears old. She also has a fungal infection in both inguinal regions. Sepsis workup was initiated. She has significantly elevated WBCs at 25.0 and a hemoglobin of 17.1. Prior hemoglobins run around 10-11 so and dehydration is likely causing the significant hemoconcentration. Patient CMPresult was significantly delayed despite calling the lab. BUN is 47, creatinine1.57. Previous was 17/0.76 so this is consistent with DURAN. CO2 is 12.2. Aniongap 29. Sodium and potassium are normal. Lactic acid 3.0. CPK slightly elevated at 762. Urinalysis is positive for UTI. Patient was given 2 L of IV fluids and 2 g of Rocephin for UTI. CT scans of the head neck and chest show no acute traumatic injuries. Pelvis x-rays shows no acute findings. I discussed the case with the hospitalist for admission. I have personally performed a face to face assessment of the patient and have reviewed the AHSAN Note. I performed a substantive portion of the visit including all aspects of the following. My roque findings include: History is 68-year-old female currently with altered mental status unable to give any history. just arrived and told me she has recently had falls. She has hit her head. She is on Eliquis. She is taking very little oral intake. She has had a change in her mental status over the last 3 days. He denies any vomiting or diarrhea. He denies any fever. He said this is not her baseline mental status. She has been like this before when she gets infections also. Exam is [68-year-old female initial temperature is 99.9. Pulse ox is 88% on room air. She is hypoxic. H EENT exam pupils round reactive light. She is moaning but not answering any questions. She has extremely dry mucous membranes. There is no obvious bruising to her face or scalp. No hematoma. Nontender. She has a large bruise on the right side of her neck in the middle of her chest. They seem older. No C-spine or tracheal tenderness. Lungs clear to auscultation. Heart tachycardic around 105. She has a bruise on her sternum but again there is no bony crepitance of her chest wall. No subcu air. Abdomen soft and nontender. Nondistended. No peritoneal signs. Pelvic girdle is intact. She is moving all 4 extremities. Nontender no deformity. No edema. Neurologically her eyes are open. She is awake. She does not follow commands or answer questions currently.] Medical Decision Making [68-year-old female recent falls on Eliquis this could all be from head injury, intracranial bleeding may be from an infection. Clinically she looks dehydrated. She undergo a septic workup with CAT scans of her head neck and chest. IV fluids. She will be admitted were awaiting test results. Have already spoken to her .] Other additions or changes: [None] Lab Data Labs: Laboratory Results - last 24 hr 04/20/24 04/20/24 04/20/24 15:30 15:33 15:44 WBC 25.0 H RBC 5.89 H Hgb 17.1 H Hct 51.0 H MCV 86.6 MCH 29.0 MCHC 33.5 RDW Std Deviation 40.4 RDW Coeff of Gerhard 13.0 Plt Count 359 MPV 9.6 Immature Gran % (Auto) 0.800 Neut % (Auto) 86.6 H Lymph % (Auto) 6.9 L Long % (Auto) 5.6 Eos % (Auto) 0.0 Baso % (Auto) 0.1 Absolute Neuts (auto) 21.6 H Absolute Lymphs (auto) 1.72 Nucleated RBC % 0 Differential Comment SCANNED PT 15.1 H INR 1.2 APTT 25.1 Sodium 144 Potassium 4.0 Chloride 103 Carbon Dioxide 12.2 L Anion Gap 29 H BUN 47 H Creatinine 1.57 H Estim Creat Clear Calc 30.00 L Est GFR (MDRD) Non-Af 35 L BUN/Creatinine Ratio 29.9 H Glucose 231 H Lactic Acid 3.0 H* Calcium 10.7 Total Bilirubin 1.15 AST 70 H ALT 25 Alkaline Phosphatase 114 H Total Creatine Kinase 762 H Total Protein 8.1 Albumin 4.5 Globulin 3.6 Albumin/Globulin Ratio 1.2 Urine Color Yellow Urine Clarity Sl. Cloudy Urine pH 5.0 Ur Specific [place] 1.020 Urine Protein 500 H Urine Glucose (UA) Normal Urine Ketones 50 H Urine Occult Blood 250 H Urine Nitrite Negative Urine Bilirubin 1 H Urine Urobilinogen Normal Ur Leukocyte Esterase 100 H Urine RBC 0-5 SEEN Urine WBC 10-25 SEEN Ur Squamous Epith Cells 0-5 SEEN Urine Bacteria 2+ Urine Mucus 1+ POC Glucose 194 H Radiography Diagnostic Testing: Clinical Impression(s) from Imaging Studies Brain CT 04/20/24 15:14 IMPRESSION: No acute finding. Stable chronic microvascular ischemic changes and age-related changes. Reading Location: [facility] Cervical Spine CT 04/20/24 15:14 IMPRESSION: NO ACUTE CERVICAL FRACTURE. DEGENERATIVE CHANGES. One or more dose reduction techniques were used (e.g., Automated exposure control, adjustment of the mA and/or kV according to patient size, use of iterative reconstruction technique). Reading Location: [facility] Chest CT 04/20/24 15:14 IMPRESSION: 1. Visualization is limited by motion artifact. No large focal consolidation or pleural effusion. 2. Severe coronary artery calcifications. One or more dose reduction techniques were used (e.g., Automated exposure control, adjustment of the mA and/or kV according to patient size, use of iterative reconstruction technique). Reading Location: [facility] Pelvis X-Ray 04/20/24 15:22 IMPRESSION: Chronic appearing bilateral trochanteric fractures, please correlate. Chronic bilateral pubic rami fractures, worse on the right. No definite acute displaced fracture or dislocation. Right femoral nail and left total hip prosthesis. Chronic compression fractures of the lower lumbar spine. Reading Location: [facility] ED attending interpretation 1 view pelvis shows bilateral hip hardware, no acute fracture. <Dr. Joe Preston MD - Last Filed: 04/20/24 15:39> MDM MDM Narrative Medical decision making narrative: I have personally performed a face to face assessment of the patient and have reviewed the AHSAN Note. I performed a substantive portion of the visit including all aspects of the following. My roque findings include: History is 68-year-old female currently with altered mental status unable to give any history. just arrived and told me she has recently had falls. She has hit her head. She is on Eliquis. She is taking very little oral intake. She has had a change in her mental status over the last 3 days. He denies any vomiting or diarrhea. He denies any fever. He said this is not her baseline mental status. She has been like this before when she gets infections also. Exam is [68-year-old female initial temperature is 99.9. Pulse ox is 88% on room air. She is hypoxic. H EENT exam pupils round reactive light. She is moaning but not answering any questions. She has extremely dry mucous membranes. There is no obvious bruising to her face or scalp. No hematoma. Nontender. She has a large bruise on the right side of her neck in the middle of her chest. They seem older. No C-spine or tracheal tenderness. Lungs clear to auscultation. Heart tachycardic around 105. She has a bruise on her sternum but again there is no bony crepitance of her chest wall. No subcu air. Abdomen soft and nontender. Nondistended. No peritoneal signs. Pelvic girdle is intact. She is moving all 4 extremities. Nontender no deformity. No edema. Neurologically her eyes are open. She is awake. She does not follow commands or answer questions currently.] Medical Decision Making [68-year-old female recent falls on Eliquis this could all be from head injury, intracranial bleeding may be from an infection. Clinically she looks dehydrated. She undergo a septic workup with CAT scans of her head neck and chest. IV fluids. She will be admitted were awaiting test results. Have already spoken to her .] Other additions or changes: [None] History & Record Review Discussion w/independent historian: Patient and Family Additional record(s) reviewed:: Prior inpatient record, Prior outpatient record, Prior ED visit and Prior labs Lab Data Attestation: I reviewed the patient's lab results. Labs: Laboratory Results - last 24 hr 04/20/24 04/20/24 04/20/24 15:30 15:33 15:44 WBC 25.0 H RBC 5.89 H Hgb 17.1 H Hct 51.0 H MCV 86.6 MCH 29.0 MCHC 33.5 RDW Std Deviation 40.4 RDW Coeff of Gerhard 13.0 Plt Count 359 MPV 9.6 Immature Gran % (Auto) 0.800 Neut % (Auto) 86.6 H Lymph % (Auto) 6.9 L Long % (Auto) 5.6 Eos % (Auto) 0.0 Baso % (Auto) 0.1 Absolute Neuts (auto) 21.6 H Absolute Lymphs (auto) 1.72 Nucleated RBC % 0 Differential Comment SCANNED PT 15.1 H INR 1.2 APTT 25.1 Sodium 144 Potassium 4.0 Chloride 103 Carbon Dioxide 12.2 L Anion Gap 29 H BUN 47 H Creatinine 1.57 H Estim Creat Clear Calc 30.00 L Est GFR (MDRD) Non-Af 35 L BUN/Creatinine Ratio 29.9 H Glucose 231 H Lactic Acid 3.0 H* Calcium 10.7 Total Bilirubin 1.15 AST 70 H ALT 25 Alkaline Phosphatase 114 H Total Creatine Kinase 762 H Total Protein 8.1 Albumin 4.5 Globulin 3.6 Albumin/Globulin Ratio 1.2 Urine Color Yellow Urine Clarity Sl. Cloudy Urine pH 5.0 Ur Specific [place] 1.020 Urine Protein 500 H Urine Glucose (UA) Normal Urine Ketones 50 H Urine Occult Blood 250 H Urine Nitrite Negative Urine Bilirubin 1 H Urine Urobilinogen Normal Ur Leukocyte Esterase 100 H Urine RBC 0-5 SEEN Urine WBC 10-25 SEEN Ur Squamous Epith Cells 0-5 SEEN Urine Bacteria 2+ Urine Mucus 1+ POC Glucose 194 H Radiography Diagnostic Testing: Clinical Impression(s) from Imaging Studies Brain CT 04/20/24 15:14 IMPRESSION: No acute finding. Stable chronic microvascular ischemic changes and age-related changes. Reading Location: [facility] Cervical Spine CT 04/20/24 15:14 IMPRESSION: NO ACUTE CERVICAL FRACTURE. DEGENERATIVE CHANGES. One or more dose reduction techniques were used (e.g., Automated exposure control, adjustment of the mA and/or kV according to patient size, use of iterative reconstruction technique). Reading Location: [facility] Chest CT 04/20/24 15:14 IMPRESSION: 1. Visualization is limited by motion artifact. No large focal consolidation or pleural effusion. 2. Severe coronary artery calcifications. One or more dose reduction techniques were used (e.g., Automated exposure control, adjustment of the mA and/or kV according to patient size, use of iterative reconstruction technique). Reading Location: [facility] Pelvis X-Ray 04/20/24 15:22 IMPRESSION: Chronic appearing bilateral trochanteric fractures, please correlate. Chronic bilateral pubic rami fractures, worse on the right. No definite acute displaced fracture or dislocation. Right femoral nail and left total hip prosthesis. Chronic compression fractures of the lower lumbar spine. [facility] <Dr. Joe Preston MD - Last Filed: 04/20/24 15:39> Critical Care Time Critical Care Time: Yes Critical care time (excluding procedures): 30-74 minutes, Including time spent:, Discussing w/Patient &/or Family/Tomato Paste Maker, Discussing w/Consultants, Arranging Admission or Transfer, Performing Direct Patient Care at Bedside and - (35 minutes.) Discharge Plan Dx/Rx/DC Orders Clinical Impression: Altered level of consciousness, Acute dehydration, Acute delirium, History of diabetes mellitus, Chronic anticoagulation, Recurrent falls, Acute UTI, Candidal intertrigo, High anion gap metabolic acidosis, Acute kidney injury Disposition Disposition: [facility] What to do if you have Problems For any increased pain, shortness of breath, bleeding, nausea or vomiting, chest pain, or any unexpected problems, contact your Primary Care Provider. Call [facility] ([phone]) or report to the closest Emergency Room. Call 911 if necessary. 04/20/241907 <Electronically signed by Monica VELÁSQUEZ> Cosigner Signature (if applicable): 04/20/242144 <Electronically signed by Joe Preston MD> CC: [employer] Rudy Boyer ~ Signed [facility] Work Phone: [phone] 259-763303-09-2025 History and physical note Author Kanwal Aguilar [facility] Note Date/Time April 20, 2024 7:51 pm [facility] Medical Records Department [address] [place] [address] H&P Exam - Hospitalist 04/20/241917 MR#: [id number] Acct: [id number] Name: DONNA MARSH David Rep #:[id number] : 1955 68 From: Kanwal Aguilar MD PCP: ORESTES Cano Status:REG ER Location: ED HPI - General General Date of Admission: 04/20/24 Date of Service: 04/20/24 Chief Complaint: Encephalopathy. HPI Narrative The patient is a 68 y/o F w/ PMHx: HTN, HLD, Anxiety and Depression/Bipolar disorder, GERD, Former tobacco use, BURKE, Chronic migraines, PAF, Psoriatic arthritis, Dementia unclear type as well as unclear extent with unclear behavioral disturbance history, Nonobstructive CAD w/ Takotsubo syndrome with reduced EF of 20% 09/2023, Diabetes mellitus type II who presents to the [facility] ED on 04/20/24 with history of persistent confusion over the last several days with concern for recurrent urinary tract infection as patient presents similarly when she has UTI. also reports recent falls on Eliquis with minimal intake with no nausea or emesis nor any diarrhea nor fevers at home. Workup in the ED included T99 temporally, heart 122, BP 169/95, respiratory rate22, 88% room air with most recent repeat vitals T98.2 Axillary, heart rate 118, BP 125/69, respiratory rate 19, 100% room air, per ED physician note specifically however there is a pulse oximeter translate there was noted to be 88% while she was in the ED, CBC with WBC 25, hemoglobin 17.1, platelets 359 with left shift, unremarkable coags, CMP with come back side 12.2, anion gap 29,BUN/creatinine 47/1.57, glucose 231, lactic acid 3.0, hepatic profile with AST 70, alk phos 02/17/2013 otherwise not marked appearing, total creatinine kinase mildly elevated 762, urinalysis with elevated specific gravity 1.020, protein 500, ketone 50, occult blood 250, nitrite negative, leukocyte esterase 100 however with urine WBCs 10-25 with 2+ urine bacteria, urine culture pending per ED, blood culture x 2 pending per ED, rapid SARS COVID/influenza/RSV negative, CT of the brain with no acute intracranial finding with stable chronic microvascular ischemic changes and age-related changes, CT cervical spine with no acute cervical fracture with chronic degenerative changes, CT chest with severe coronary artery calcifications with no acute cardiopulmonary findings otherwise, plain film of the pelvis with chronic appearing bilateral trochanteric fractures, chronic bilateral pubic rami fractures worse on the right, no definitive acute displaced fracture or dislocation, right femoral [place] left total hip prosthesis, chronic compression fractures of the lower lumbarspine, EKG ST with artifact with no acute evidence of ischemia. In the ED patient ministered 30 cc/kg IV fluid bolus (2L NS), Ativan 1 mg IV x 1, Rocephin2 g IV x 1, acetaminophen 650 mg rectal x 1. [facility] Medical History Myocardial infarction type 2 Non-ST elevation MN (NSTEMI) Hiatal hernia Irritable bowel Back pain due to injury Restless legs Injury of head and neck High cholesterol Hearing loss, right Bipolar disorder Depression Anxiety GERD (gastroesophageal reflux disease) Former smoker Sleep apnea Atrial fibrillation Migraines Dementia Closed intertrochanteric fracture of left hip Psoriatic arthritis Nonobstructive atherosclerosis of coronary artery Obesity Type 2 diabetes mellitus Takotsubo syndrome Hyperlipidemia Essential (primary) hypertension NSTEMI (non-ST elevated myocardial infarction) (01/06/18) Home Medications ?Medication ?Instructions ?Recorded ?Last Taken ?Type buspirone 7.5 mg tablet 22.5 mg PO BID anxiety 01/06 Unknown History fluoxetine 40 mg capsule 40 mg PO BID anxiety 8 Unknown History gabapentin 100 mg capsule 100 mg PO TID pain 04/14/23 01/04/24 History simvastatin 40 mg tablet 40 mg PO QHS cholesterol 04/07 Unknown History carvedilol 3.125 mg tablet 3.125 mg PO BID bp 30 days #60 tabs 01/05/24 Unknown Rx pantoprazole 40 mg tablet,delayed 40 mg PO BID stomach 30 days #60 01/05/24 Unknown Rx release (Protonix) tabs apixaban 2.5 mg tablet (Eliquis) 2.5 mg PO BID blood t hinner 02/14/24 Unknown History donepezil 5 mg tablet (Aricept) 5 mg PO DAILY alzheime rs 02/14/24 Unknown History ergocalciferol (vitamin D2) 1,250 1,250 mcg PO .COMPLE X 04/20/24 Unknown History mcg (50,000 unit) capsule (Vitamin D2) fexofenadine 180 mg tablet 180 mg PO DAILY 04/20/24 Un known History glipizide 10 mg tablet 10 mg PO DAILY 04/20/24 Unkn own History oxybutynin chloride 15 mg 30 mg PO DAILY 04/20/24 Unkn own History tablet,extended release 24 hr Allergy/AdvReac Type Severity Reaction Status Date / Time morphine Allergy Mild confusion Verified 04/20/24 15:06 codeine Allergy Itching Verified 04/20/24 15:06 fentanyl AdvReac confusion Verified 04/20/24 15:06 naproxen AdvReac Other Verified 02/13/24 16:26 Family History Mother Cancer skin Father Cancer prostate Surgical History History of back surgery History of carpal tunnel release of both wrists History of hysterectomy History of left heart catheterization (01/07/18) Social History household members: spouse Smoking Status: Former smoker how long ago did patient quit smokin years ago alcohol intake: never substance use type: does not use caffeine: Yes Type: carbonated beverages Number of servings: 1 ROS Review of Systems ROS Unobtainable: due to encephalopathy Vital Signs Vital Signs Vital Signs: 04/20/24 15:06 04/20/24 15:10 04/20/24 15:59 Temperature 99.9 F H 99.9 F H Temperature Source Temporal Oral Pulse Rate 122 H Respiratory Rate 22 H Blood Pressure 169/95 H Blood Pressure Mean 119 Pulse Ox 88 98 98 Oxygen Delivery Method Room Air Room Air Room Air 04/20/24 16:02 04/20/24 16:10 04/20/24 17:00 Temperature 97.6 F L 97.6 F L 98.1 F Temperature Source Axillary Axillary Axillary Pulse Rate 145 H 124 H 116 H Respiratory Rate 18 18 13 Blood Pressure 160/93 H 159/67 H 131/75 H Blood Pressure Mean 115 97 93 Pulse Ox 99 100 100 Oxygen Delivery Method Room Air Room Air Room Air 04/20/24 18:00 Temperature 98.2 F Temperature Source Axillary Pulse Rate 118 H Respiratory Rate 19 H Blood Pressure 125/69 H Blood Pressure Mean 87 Pulse Ox 100 Oxygen Delivery Method Room Air Weight Weight: 147 lb 14.883 oz Body Mass Index (BMI) 24.6 Physical Exam Narrative Physical Examination: General: Awakens but lethargic, not oriented, ill-appearing, laying in ED bed, some spontaneous movement and rolling in the bed. Skin: Normal color, normal turgor, no icterus, no cyanosis except numerous various stage ecchymoses including the face, occasional abrasions, bilateral lower extremity venous stasis skin changes HEENT: AT/NC, EOMI, PERRLA, dry MM, no carotid bruits, no marked JVD noted. Lungs: Significantly diminished, greater bases, mildly increased respiratory rate but no distress, no appreciated rales, rhonchi or wheezing. Heart: Tachycardic with regular rhythm; no gallop, rub audible. Abdomen: Soft, mild generalized discomfort to palpation, ND, distant hyperactiveBS, no appreciated HSM. Extremities: No cyanosis, no clubbing, no marked peripheral edema, see skin. Neurological: Awakens but lethargic, not oriented, ill-appearing, laying in ED bed, some spontaneous movement and rolling in the bed, cognitive function not baseline intact, PERRLA, cranial nerves difficult to assess given encephalopathic presentation currently, spontaneously moving extremities, strength severely globally decreased. Psychiatric: Affect appears flat, lethargic, no acute evidence of depressive or anxiety feelings but does have underlying history. Results Lab / Micro Data 04/20/24 15:44 04/20/24 15:44 Labs: Laboratory Results - last 24 hr 04/20/24 15:30: Urine Color Yellow, Urine Clarity Sl. Cloudy, Urine pH 5.0, Ur Specific [place] 1.020, Urine Protein 500 H, Urine Glucose (UA) Normal, Urine Ketones 50 H, Urine Occult Blood 250 H, Urine Nitrite Negative, Urine Bilirubin 1 H, Urine Urobilinogen Normal, Ur Leukocyte Esterase 100 H, Urine RBC 0-5 SEEN,Urine WBC 10-25 SEEN, Ur Squamous Epith Cells 0-5 SEEN, Urine Bacteria 2+, UrineMucus 1+ 04/20/24 15:33: POC Glucose 194 H 04/20/24 15:44: WBC 25.0 H, RBC 5.89 H, Hgb 17.1 H, Hct 51.0 H, MCV 86.6, MCH 29.0, MCHC 33.5, RDW Std Deviation 40.4, RDW Coeff of Gerhard 13.0, Plt Count 359, MPV 9.6, Immature Gran % (Auto) 0.800, Neut % (Auto) 86.6 H, Lymph % (Auto) 6.9 L, Long % (Auto) 5.6, Eos % (Auto) 0.0, Baso % (Auto) 0.1, Absolute Neuts (auto)21.6 H, Absolute Lymphs (auto) 1.72, Nucleated RBC % 0, Differential Comment SCANNED, PT 15.1 H, INR 1.2, APTT 25.1, Sodium 144, Potassium 4.0, Chloride 103,Carbon Dioxide 12.2 L, Anion Gap 29 H, BUN 47 H, Creatinine 1.57 H, Estim Creat Clear Calc 30.00 L, Est GFR (MDRD) Non-Af 35 L, BUN/Creatinine Ratio 29.9 H, Glucose 231 H, Lactic Acid 3.0 H*, Calcium 10.7, Total Bilirubin 1.15, AST 70 H, ALT 25, Alkaline Phosphatase 114 H, Total Creatine Kinase 762 H, Total Protein 8.1, Albumin 4.5, Globulin 3.6, Albumin/Globulin Ratio 1.2 Micro: Microbiology 04/20/24 15:30 Mucosa - Nose SARS-CoV-2, Influenza & RSV (PCR) - Final Imaging Radiology Impression Brain CT 04/20/24 15:14 IMPRESSION: No acute finding. Stable chronic microvascular ischemic changes and age-relatedchanges. Reading Location: [facility] Cervical Spine CT 04/20/24 15:14 IMPRESSION: NO ACUTE CERVICAL FRACTURE. DEGENERATIVE CHANGES. One or more dose reduction techniques were used (e.g., Automated exposure control, adjustment of the mA and/or kV according to patient size, use of iterative reconstruction technique). Reading Location: [facility] Chest CT 04/20/24 15:14 IMPRESSION: 1. Visualization is limited by motion artifact. No large focal consolidation orpleural effusion. 2. Severe coronary artery calcifications. One or more dose reduction techniques were used (e.g., Automated exposure control, adjustment of the mA and/or kV according to patient size, use of iterative reconstruction technique). Reading Location: [facility] Pelvis X-Ray 04/20/24 15:22 IMPRESSION: Chronic appearing bilateral trochanteric fractures, please correlate. Chronic bilateral pubic rami fractures, worse on the right. No definite acute displaced fracture or dislocation. Right femoral nailand left total hip prosthesis. Chronic compression fractures of the lower lumbar spine. Reading [facility] Assessment & Plan Assessment/Plan (1) Sepsis: (2) Acute UTI: PLAN: Plan The patient is a 68 y/o F w/ PMHx: HTN, HLD, Anxiety and Depression/Bipolar disorder, GERD, Former tobacco use, BURKE, Chronic migraines, PAF, Psoriatic arthritis, Dementia unclear type as well as unclear extent with unclear behavioral disturbance history, Nonobstructive CAD w/ Takotsubo syndrome with reduced EF of 20% 09/2023, Diabetes mellitus type II who presents to the [facility] ED on 04/20/24 with history of persistent confusion over the last several days with concern for recurrent urinary tract infection as patient presents similarly when she has UTI. #1. Acute Encephalopathy secondary to Acute sepsis secondary to Acute complicated urinary tract infection (tachypnea, tachycardia, encephalopathy, infectious source UTI, acute kidney injury, lactic acidosis): Will admit to the ICU per facility protocol given sepsis presentation, will consult mail sorter per protocol, ABG requested, given abdominal generalized discomfort also in the ED and inability to really give a good history with recent fall we will also scan her abdomen without contrast, UA upon ED evaluation remarkable, pending UCx, continue aggressive IV fluids given septic presentation in addition to highanion gap metabolic acidosis and rhabdomyolysis, monitor I/Os, continue IV Rocephin w/ transition as able pending sensitivities and speciation. Bld cx x 2 obtained in the ED. PT/OT/case management consulted for discharge planning. #2. High anion gap metabolic acidosis, unclear specific etiology: Patient presentation with infectious etiology with lactic acidosis but also elevated anion gap with hyperglycemia and noted ketones in the urine thus certainly some risk that this could be a component of DKA, will obtain acetone and if clinically appropriate initiate DKA order set and protocol. Acetone has been requested and is pending upon evaluation of patient. In the interim until assure no DKA will maintain on every 6 hours Accu-Cheks with insulin sliding scale and hold oral regimen, n.p.o. status. #3. Acute kidney injury on CKD stage II versus stage III per previous GFR trend, has vacillated but more recently appears Stage II: Secondary to acute presentation #1, #2. Admission BUN/Cr 47/1.57, GFR 35, prior baseline creatininenoted to be primarily 0.7-0.8 although has vastly. Will hydrate, hold nephrotoxic medications and repeat chemistry in AM. #4. Acute rhabdomyolysis: Total creatinine kinase mildly elevated 762, will continue aggressive hydration, monitor renal function, liver function, monitor I's and O's, trend total creatinine kinase. #5. Known right renal artery obstruction: Temporarily place on ASA OK, holding NOAC, holding oral HTN regimen given encephalopathy with PRN agents IV in the interim, holding statin. #6. Hypertension: Given presentation holding oral regimen, PRN IV regimen in interim, add back oral once clinically appropriate. #7. Hyperlipidemia: Hold oral statin regimen. #8. Anxiety and depression/bipolar disorder: Hold oral BuSpar and fluoxetine home regimen, add back once appropriate. #9. PAF: Holding oral Coreg regimen, hold eliquis, add back once clinically appropriate. #10. Dementia, unclear type with unclear behavioral disturbance history: Complicates presentation, temporarily hold Aricept home regimen given unsafe oral intake, add back once encephalopathy resolves, will maintain on fall and aspiration precautions, PT/OT/case management consulted for discharge planning. #11. Former tobacco use: Encourage continued tobacco cessation. #12. BURKE: BiPAP nightly. #13. DVT prophylaxis: Holding NOAC, maintain on heparin SC temporarily. Once oral intake safe may transition back to her NOAC for PAF. #14. CODE status: Patient HCPOA and living will are not in place but her is her medical decision-maker if necessary. Discussed CODE status at length including difference between FULL code, DNR-CCA and DNR-CC status. Following discussions about the differences in these status, requested Full Codestatus. Advanced Care Planning Face to Face Time: 16 minutes. Charges/Coding Visit Charges Inpatient E&M: 14303 Init Hosp L3 Procedures Hospitalists Procedures: 29811 Advncd Care Plan 30 Min 04/20/241950 <Electronically signed by Kanwal Aguilar MD> Cosign Signature (if applicable): CC: WALLPAPER PRINTER HELPERJarad Boyer; Dr. Kanwal Aguilar MD~ Signed [facility] Work Phone: 1(340) 215-412103-09-2025 Radiology Diagnostic study [facility]03-09-2025 Radiology Diagnostic study [facility]03-09-2025 Radiology Diagnostic study [facility] 04-20-2024 Radiology Diagnostic study [facility]03-09-2025 Radiology Diagnostic study [facility]01-05-2025 [facility]12-13-2024 Evaluation note* Diagnosis Onset Date Resolution Status Admit Date Chest pain acute January 25, 2024 8:18am Gastroenteritis acute January 25, 2024 8:18am Acute hyperglycemia resolved 2024 9:03pm Acute lactic acidosis resolved Feb 9:03pm DURAN (acute kidney injury) resolved February 13, 2024 9:03pm High anion gap metabolic acidosis resolved February 12 9:03pm Leukocytosis resolved February 13, 2024 9:03pm Sepsis resolved February 12 2 025 9:03pm Toxic metabolic encephalopathy resol imer February 13, 2024 9:03pm Acute delirium inactive April 20, 2024 7:19pm Acute encephalopathy inactive Gilberto h 2024 7:19pm Acute kidney injury inactive April 20, 2024 7:19pm Acute UTI inactive April 20 7:19pm Altered level of consciousness inact an April 20, 2024 7:19pm Candidal intertrigo inactive April 20, 2024 7:19pm High anion gap metabolic acidosis inactive April 20, 2024 7:19pm Recurrent falls inactive April 7:19pm Sepsis inactive April 20 7:19pm Fall acute May 13 9:36pm Inability to walk acute May 132024 9:36pm Intractable low back pain acute May 13, 2024 9:36pm Hypertension chronic May 13, 2 025 9:36pm [facility] Work Phone: 1(149) 692-461312-13-2024 Evaluation note* Diagnosis Onset Date Resolution Status Admit Date Chest pain acute January 25, 2024 8:18am Gastroenteritis acute January 25, 2024 8:18am Acute hyperglycemia resolved 2024 9:03pm Acute lactic acidosis resolved Feb 9:03pm DURAN (acute kidney injury) resolved February 13, 2024 9:03pm High anion gap metabolic acidosis resolved February 12 9:03pm Leukocytosis resolved February 13, 2024 9:03pm Sepsis resolved February 12, 2 025 9:03pm Toxic metabolic encephalopathy resol imer February 13, 2024 9:03pm Acute delirium inactive April 20, 2024 7:19pm Acute encephalopathy inactive Gilberto h th, 2025 7:19pm Acute kidney injury inactive April 20, 2024 7:19pm Acute UTI inactive April 20 7:19pm Altered level of consciousness inact an April 20, 2024 7:19pm Candidal intertrigo inactive April 20, 2024 7:19pm High anion gap metabolic acidosis inactive April 20, 2024 7:19pm Recurrent falls inactive April 7:19pm Sepsis inactive April 20 7:19pm DURAN (acute kidney injury) acute May 14, 2024 11:43am Fall acute May 14 11:43am Inability to walk acute May 142024 11:43am Intractable low back pain acute May 14, 2024 11:43am Hypertension chronic May 14 11:43am [facility] Work Phone: 1(190) 360-826811-23-2024 [facility]11-18-2024 Evaluation note* Diagnosis Onset Date Resolution Status Admit Date Acidosis, lactic resolved December 30, 2023 10:40pm Acute kidney injury resolved Novem 2023 10:40pm CHF exacerbation resolved December 30, 2023 10:40pm Elevated troponin resolved Novembe r 2023 10:40pm Febrile resolved December 30, 2023 10:40pm Hypoxia resolved December 30, 2023 10:40pm Urinary tract infection resolved N ovember 2023 10:40pm Myocardial infarction type 2 inactiv e December 30, 2023 10:40pm Chest pain acute January 25, 2024 8:18am Gastroenteritis acute January 25, 2024 8:18am Acute hyperglycemia resolved ry 2024 9:03pm Acute lactic acidosis resolved Feb 9:03pm DURAN (acute kidney injury) resolved February 13, 2024 9:03pm High anion gap metabolic acidosis resolved February 12 9:03pm Leukocytosis resolved February 13, 2024 9:03pm Sepsis resolved February 12, 9:03pm Toxic metabolic encephalopathy resol imer February 13, 2024 9:03pm Acute kidney injury acute April 20, 2024 8:22pm Acute UTI acute April 20 8:22pm Candidal intertrigo acute April 20, 2024 8:22pm High anion gap metabolic acidosis acute April 20, 2024 8:22pm Recurrent falls acute April 8:22pm Sepsis acute April 20 8:22pm [facility] Work Phone: 1(108) 686-113711-18-2024 Evaluation note* Diagnosis Onset Date Resolution Status Admit Date Acidosis, lactic resolved December 30, 2023 10:40pm Acute kidney injury resolved 2023 10:40pm CHF exacerbation resolved December 30, 2023 10:40pm Elevated troponin resolved Novembe r 2023 10:40pm Febrile resolved December 30, 2023 10:40pm Hypoxia resolved December 30, 2023 10:40pm Urinary tract infection resolved N ovember 2023 10:40pm Myocardial infarction type 2 inactiv e December 30, 2023 10:40pm Chest pain acute January 25, 2024 8:18am Gastroenteritis acute January 25, 2024 8:18am Acute hyperglycemia resolved 2024 9:03pm Acute lactic acidosis resolved Feb 9:03pm DURAN (acute kidney injury) resolved February 13, 2024 9:03pm High anion gap metabolic acidosis resolved February 12 9:03pm Leukocytosis resolved February 13, 2024 9:03pm Sepsis resolved February 12, 9:03pm Toxic metabolic encephalopathy resol imer February 13, 2024 9:03pm Acute delirium acute April 20, 2024 7:19pm Acute encephalopathy acute Gilberto 2024 7:19pm Acute kidney injury acute April 20, 2024 7:19pm Acute UTI acute April 20 7:19pm Altered level of consciousness acute April 20, 2024 7:19pm Candidal intertrigo acute April 20, 2024 7:19pm High anion gap metabolic acidosis acute April 20, 2024 7:19pm Recurrent falls acute April 7:19pm Sepsis acute April 20 7:19pm [facility] Work Phone: 1(885) 680-425608-08-2024 [facility]04-09-2024 Miscellaneous Notes* Telephone Encounter - Jc Riggs RN - 05/22/2023 7:49 AM EDT Allergy & immunology [facility] Note * Telephone Encounter - Ruthie Alaniz MA - 04/26/2023 1:16 PM EDT Spoke to the nurse and informed her any medication questions needs to be answered from [facility]CP [id number] Miscellaneous Notes* Telephone Encounter - Ruthie Alaniz MA - 04/26/2023 1:16 PM EDT Spoke to the nurse and informed her any medication questions needs to be answered from PCP * Telephone Encounter - Cecilia Parker - 04/20/2023 2:59 PM EST Rudy / [facility] called in w/ drug allergies the pt has: Oxy- codeine allergy, Oxycodone- Morphine allergy, Meloxicam- Naproxen allergy. Rudy wants to make sure its ok to give pt meds or not. Please Advise [phone]. * Telephone Encounter - Collin Henao - 04/20/2023 11:26 AM EST [facility] calling to request an order for a weekend phone call to check in with patient. They are concerned about her taking her medication (antibiotics) as well as concern for hospital re-admission. Please call Rudy with any questions: [phone] Fax order to: [phone] Thank you! * Telephone Encounter - Collin Henao - 04/17/2023 10:11 AM EST Pt is currently admitted to [facility] for accelerated hypertension. This admissionwas on 04/13. [facility] will be closing the order for home care at this time. New orders will need to be sent if she needs home care after her current hospital stay. FYI * Telephone Encounter - Christiane Victoria - 04/13/2023 9:08 AM EST Documents all printed, waiting for referral to be signed by Ty on Sunday and then I will fax everything back to them * Telephone Encounter - Danyelle Ewing - 04/12/2023 3:23 PM EST Name of caller: [facility] Contact phone number: [phone] Provider: Beth Lozano Practice: Ortho Chief Complaint/Reason for Call: [facility] called stating they got thereferral for the pt, but they also require the most recent OV notes Has to be within the last 90 days), a written and signed order from the dr, the pt's medication list, and a demographic sheet. Theyneed it faxed to [phone]. Please advise. Best time of day caller can be reached: Any Patient advised that office/PCP has 24-48 business hours to return their call: No documented in this [facility]03-08-2024 Telephone encounter Note* Telephone Encounter - Cecilia Parker - 04/20/2023 2:59 PM EST Rudy jeffrey/ [facility] called in w/ drug allergies the pt has: Oxy- codeine allergy, Oxycodone- Morphine allergy, Meloxicam- Naproxen allergy. Rudy wants to make sure its ok to give pt meds or not. Please Advise [phone]. [id number] Miscellaneous Notes* Telephone Encounter - Cecilia Parker - 04/20/2023 2:59 PM EST Rudy w/ [facility] called in w/ drug allergies the pt has: Oxy- codeine allergy, Oxycodone- Morphine allergy, Meloxicam- Naproxen allergy. Rudy wants to make sure its ok to give pt meds or not. Please Advise [phone]. * Telephone Encounter - Collin Henao - 04/20/2023 11:26 AM EST RN [facility] calling to request an order for a weekend phone call to check in with patient. They are concerned about her taking her medication (antibiotics) as well as concern for hospital re-admission. Please call Rudy with any questions: [phone] Fax order to: [phone] Thank you! * Telephone Encounter - Collin Henao - 04/17/2023 10:11 AM EST Pt is currently admitted to [facility] for accelerated hypertension. This admissionwas on 04/13. [facility] will be closing the order for home care at this time. New orders will need to be sent if she needs home care after her current hospital stay. FYI * Telephone Encounter - Christiane Victoria - 04/13/2023 9:08 AM EST Documents all printed, waiting for referral to be signed by Ciro on Sunday and then I will fax everything back to them * Telephone Encounter - Danyelle Ewing - 04/12/2023 3:23 PM EST Name of caller: [facility] Contact phone number: [phone] Provider: Beth Lozano Practice: Ortho Chief Complaint/Reason for Call: [facility] called stating they got thereferral for the pt, but they also require the most recent OV notes Has to be within the last 90 days), a written and signed order from the dr, the pt's medication list, and a demographic sheet. Theyneed it faxed to [phone]. Please advise. Best time of day caller can be reached: Any Patient advised that office/PCP has 24-48 business hours to return their call: No documented in this [facility]03-08-2024 Telephone encounter Note* Telephone Encounter - Collin Henao - 04/20/2023 11:26 AM EST [facility] calling to request an order for a weekend phone call to check in with patient. They are concerned about her taking her medication (antibiotics) as well as concern for hospital re-admission. Please call Rudy with any questions: [phone] Fax order to: [phone] Thank you! [facility]72-[facility]-2004 Discharge summary Author Anuja Murcia [facility] April 18, 2023 7:13am Note Date/Time April 18, 2023 7:13 am [facility] Medical Records Department [address] [place] [id number] Discharge Summary 04/18/23 0710 MR#: [id number] Acct: [id number] Name: DONNA MARSH Rep #:[id number] : [id number] 67 From: Anuja Murcia MD PCP: ORESETS Cano Status:ADM [id number] Prov[facility] Date of Admission: 04/14/23 Date of Discharge: 04/18/23 Primary Care Physician: ORESTES Cano Consultations 04/14/23 08:30 Consult: Gastroenterology Routine Consulting Provider: Christopher Huang Reason for Consult: Acute Procititis with suspected Mass on CT. Direct visualization recommend EMERGENT Consult: No MD Notified: Yes Date Notified: 04/14/23 Time Notified: 07:05 Method of Notification: Text Reason For Visit: ACUTE PROCTITIS, ACUTE PANCREATITIS AND UTI Diagnosis Discharge Diagnosis (1) Proctitis: Status: Acute Code(s): K62.89 - Other specified diseases of anus and rectum (2) Toxic metabolic encephalopathy: Status: Acute Code(s): G92.8 - Other toxic encephalopathy (3) Hyperammonemia: Status: Acute Code(s): E72.20 - Disorder of urea cycle metabolism, unspecified Plan Patient is a 67-year-old lady who presented with abdominal pain with nausea and vomiting. CT of the abdomen obtained was consistent with proctitis admitted [facility] inpatient management 1. Acute proctitis ?Wall thickening of the rectum probably due to proctitis. Rectal mass not completely excluded. Patient started on broad-spectrum antibiotic therapy. Admitted to the intensive care unit due to relative hypotension on admission with consultation placed to Dr. Huang ? 04/17/2023 patient underwent colonoscopy findings and recommendations as below Impressions : - Preparation of the colon was fair. - Rectal prolapse. - Congested mucosa in the rectum. Biopsied. - Two 1 to 2 mm polyps in the sigmoid colon and at the hepatic flexure, removed with a cold snare. Resected and retrieved. - Stool in the recto-sigmoid colon, in the sigmoid colon, in the descending colon and in the cecum. - The examination was otherwise normal. Recommendations : - [facility]. - Resume regular diet. - Continue present medications. - Await pathology results. - Repeat colonoscopy in 3 years for surveillance. 2. Sepsis ? Sepsis ruled out 3. Acute cystitis without hematuria with E. coli ? Patient is on Zosyn cultures pending ? 04/17/2023 urine cultures came back positive for E. coli remains on appropriate antibiotic -04/18/2023 patient was discharged on cefdinir 4. Possible pancreatitis ? Patient was found to infiltration of the pancreas and mild fat stranding of the second portion of the duodenum and the head of pancreas. Patient treated symptomatically 5. Acute hypertensive urgency ? Patient blood pressure has improved 6. Diabetes mellitus type II -patient's oral 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s held. Placed on long acting insulin, Accu-Cheks a.c. and at bedtime and covered with sliding scale insulin 7. Recent fall with hip fracture ? In December 2022 underwent ORIF 8. GERD ? On PPI 9.. Dyslipidemia -Patient is on statin therapy, continued at home dose 10. Coronary artery disease ? With history of previous non-STEMI remained stable with no ischemic symptoms 11. Paroxysmal A-fib ? Rate controlled 12. History of Takotsubo cardiomyopathy ? Remains stable 13. Hypokalemia -Corrected per protocol 14. History of migraine headaches ? Currently asymptomatic 15. Restless leg syndrome ? Remains stable 17. Irritable bowel syndrome ? Stable 18. Overactive bladder ? Plan is to continue with oxybutynin 19. Psoriatic arthritis ? Remains stable 20. Osteoporosis -; with history of compression fracture and pubic rami fractures 21. DVT prophylaxis - Lovenox 40 mg sq daily plus SCD's. 22; Hypomagnesemia ? Corrected per protocol repeat labs ordered for a.m. 23. Hypophosphatemia ? Corrected per protocol Time spent in the patient's overall evaluation,decision-making process, review of diagnostic data, adjustment of management, discussion with other providers, nursing nursing and ancillary staff involved in patient's care documentation 35 Minutes Medications at Discharge Home Medications alendronate 70 mg tablet 70 mg PO SA osteoporosis 01/06/18 buspirone 7.5 mg tablet 15 mg PO BID anxiety 01/06/18 fluoxetine 40 mg capsule 40 mg PO BID anxiety 01/06/18 glipizide 5 mg tablet 10 mg PO DAILY antidiabetic 01/06/18 omeprazole 20 mg tablet,delayed release 20 mg PO DAILY GERD 01/06/18 carvedilol 3.125 mg tablet 3.125 mg PO BID #90 tabs 07/10/18 ergocalciferol (vitamin D2) 1,250 mcg (50,000 unit) capsule 50,000 unit PO .COMPLEX supplement 02/12/19 lisinopril 20 mg tablet 20 mg PO DAILY #30 tabs 02/15/19 cephalexin 500 mg capsule 500 mg PO TID 7 days #21 caps 04/14/23 gabapentin 100 mg capsule 100 mg PO Q8H pain 04/14/23 meloxicam 7.5 mg tablet 7.5 mg PO DAILY pain 04/14/23 ondansetron 4 mg disintegrating tablet 4 mg PO TID PRN nausea and vomiting #21 tabs 04/14/23 oxybutynin chloride 10 mg tablet,extended release 24 hr 20 mg PO DAILY bladder 04/14/23 oxycodone 5 mg tablet 5 mg PO .COMPLEX pain 04/14/23 simvastatin 40 mg tablet 40 mg PO DAILY cholesterol 04/14/23 turmeric 1 cap PO DAILY supplement 04/14/23 Physical Exam Narrative GENERAL: cooperative HEENT: Atraumatic; normocephalic EYES; Anicteric, Normal Conjunctiva NECK; supple, normal thyroid, RESPIRATORY: Diminished to auscultation CARDIOVASCULAR: Regular S1 S2, GI: soft, normoactive bowel sounds, : No Renal angle tenderness; EXTREMITIES: No edema, no clubbing, MUSCULOSKELETAL: no muscle wasting NEURO: Awake; no lateralizing signs. SKIN: No Rash PSYCH; Flat affect Weight / BMI Weight Weight: 75 kg Body Mass Index (BMI) 27.5 ABG / Lab / Microbiology Data 04/18/23 05:29 04/18/23 05:29 Laboratory: Laboratory Results - last 24 hr 04/17/23 11:22: POC Glucose 112 H 04/17/23 16:56: POC Glucose 112 H 04/17/23 23:14: POC Glucose 120 H 04/18/23 05:18: POC Glucose 115 H 04/18/23 05:29: WBC 8.2, RBC 4.31, Hgb 12.0, Hct 37.6, MCV 87.2, MCH 27.8, MCHC 31.9 L, RDW Std Deviation 45.2 H, RDW Coeff of Gerhard 14.0, Plt Count 230, MPV 9.6,Immature Gran % (Auto) 0.200, Neut % (Auto) 65.0, Lymph % (Auto) 25.6, Long % (Auto) 6.3, Eos % (Auto) 2.8, Baso % (Auto) 0.1, Absolute Neuts (auto) 5.3, Absolute Lymphs (auto) 2.09, Nucleated RBC % 0, Sodium 143, Potassium 3.8, Chloride 112 H, Carbon Dioxide 23.0, Anion Gap 8, BUN 7, Creatinine 0.57, Estim Creat Clear Calc 67.27, Est GFR (MDRD) Af Amer 134, Est GFR (MDRD) Non-Af 111, BUN/Creatinine Ratio 12.2, Glucose 105, Calcium 8.6 Microbiology: Microbiology 04/14/23 04:35 Urine Catheter - Catheter Urine Culture - Final Presumptive E. coli D/C Instructions Discharge Diet: No restrictions Discharge Activity: Return to Normal Activity Call your doctor if you observe: Fever of 101 or Higher, Shortness of breath, Fainting spells and Chest pain Meaningful Use Info Meaningful Use Diagnoses (Choose all that apply): None applicable Discharge Plan Admission Admit Date/Time: 04/14/23 07:01 Attending Provider: Anuja Murcia Primary Care Provider: Rudy Boyer Consulting Providers: Anuja Noel; Tamiko Quigley; Miguel Chapman; Friend,Christopher Instructions Patient Instructions: Urinary Tract Infections in Women, ED Hypertension, Established, ED Opioid Withdrawal Additional Instructions / Restrictions: Your workup shows a urinary tract infection and therefore take the Keflex/cephalexin as directed. Also your history and workup indicate that some of your symptoms are related to opioid withdrawal as you have not taken your oxycodone in the last 24 hours. Therefore please go back to taking it as you were given in the [facility] and use Zofran for any nausea or vomiting sensation. If you have any further concerns or worsening of symptoms please return for repeat evaluation Discharge Orders/Prescriptions Prescriptions: New cephalexin 500 mg capsule 500 mg PO TID 7 Days Qty: 21 0RF ondansetron 4 mg tablet,disintegrating 4 mg PO TID PRN (Reason: nausea and vomiting) Qty: 21 0RF No Action fluoxetine 40 MG capsule 40 mg PO BID alendronate 70 MG tablet 70 mg PO SA Rx Instructions: unknown buspirone 7.5 MG tablet 15 mg PO BID glipizide 5 MG tablet 10 mg PO DAILY omeprazole 20 MG tablet,delayed release (DR/EC) 20 mg PO DAILY ergocalciferol (vitamin D2) 50,000 UNIT capsule 50,000 unit PO .COMPLEX Patient Comments: Unsure day patient takes Rx Instructions: 50,000 units orally Q 2 Weeks; 50,000 units orally; lisinopril 20 MG tablet 20 mg PO DAILY Qty: 30 0RF simvastatin 40 mg tablet 40 mg PO DAILY meloxicam 7.5 mg tablet 7.5 mg PO DAILY oxybutynin chloride 10 mg tablet extended release 24hr 20 mg PO DAILY oxycodone 5 mg tablet 5 mg PO .COMPLEX Patient Comments: take 1 tablet by mouth three times a day and 1 tablet twice a day if needed for pain Rx Instructions: take 1 tablet by mouth three times a day and 1 tablet twice a day if needed for pain gabapentin 100 mg capsule 100 mg PO Q8H turmeric 1,000 mg capsule 1 cap PO DAILY carvedilol 3.125 mg tablet 3.125 mg PO BID Qty: 90 3RF Rx Instructions: heart/ blood pressure Referrals / Follow Up: Rudy Boyer NP-C [Primary Care Provider] - Within 2 Weeks Disposition Disposition (needs filled in before D/C Order can be placed): Home, Self Care Charges/Coding Visit Charges Inpatient E&M: 02625 Disch Hosp >30min 04/18/23 0713 <Electronically signed by Anuja Murcia MD> Cosigner Signature (if applicable): CC: ORESTES Boyer; Dr. Anuja Murcia MD~ Signed [facility] Work Phone: 1(731) 808-732903-05-2024 Progress note Author Christopher Huang [facility] April 17, 2023 6:44pm Note Date/Time April 17, 2023 6:44 pm [facility] Medical Records Department [address] [place] [address] Progress Note - GI 04/17/23 1842 MR#: [id number] Acct: [id number] Name: DONNA MARSH Rep #:[id number] : 1955 67 From: Christopher Huang DO PCP: ORESTES Cano Status:ADM IN Location: ICU ICU01-1 Subjective Subjective Patient underwent colonoscopy yesterday due to findings of possible rectal mass on CT scan abdomen pelvis. She tolerated the procedure without problems. She does not have any bleeding abdominal pain today. Auto mental status is back to normal at that she has been on antibiotic therapy for E. coli urosepsis. Objective Data Objective Data Vital Signs: Vital Signs Temp Pulse Resp BP Pulse Ox O2 Del Method O2 Flow Rate 98.2 F 83 18 162/73 H 97 Room Air 2 04/17/23 17:27 04/17/23 17:27 04/17/23 17:27 04/17/23 17:27 04/17/23 17:27 04/17/23 17:27 04/17/23 07:00 Oxygen Flow Rate (L/min) 2 Oxygen Delivery Method Room Air Weight: 165 lb 5.547 oz Body Mass Index (BMI) 27.5 Intake & Output: Intake and Output for Last 24 Hours 04/15/23 04/16/23 04/17/23 23:59 23:59 23:59 Intake Total 3753.00 / 3753.00 1515.0 / 1515.0 2584.0 / 2584.0 Output Total 500 / 500 950 / 950 350 / 350 Balance 3253.00 / 3253.00 565.0 / 565.0 2234.0 / 2234.0 Lab / Micro Data 04/17/23 03:53 04/17/23 03:53 Labs: Laboratory Results - last 24 hr 04/17/23 00:04: POC Glucose 97 04/17/23 03:53: WBC 11.3 H, RBC 4.53, Hgb 12.1, Hct 39.7, MCV 87.6, MCH 26.7 L, MCHC 30.5 L, RDW Std Deviation 45.1 H, RDW Coeff of Gerhard 14.1, Plt Count 231, MPV9.1, Immature Gran % (Auto) 0.300, Neut % (Auto) 66.9, Lymph % (Auto) 25.2, Long% (Auto) 5.3, Eos % (Auto) 2.0, Baso % (Auto) 0.3, Absolute Neuts (auto) 7.6, Absolute Lymphs (auto) 2.85, Nucleated RBC % 0, Sodium 145, Potassium 2.8 L, Chloride 115 H, Carbon Dioxide 26.0, Anion Gap 4 L, BUN 7, Creatinine 0.59, Estim Creat Clear Calc 66.55, Est GFR (MDRD) Af Amer 130, Est GFR (MDRD) Non-Af 108, BUN/Creatinine Ratio 11.9, Glucose 101, Calcium 8.2 L, Phosphorus 2.3 L, Magnesium 1.5 L 04/17/23 05:32: POC Glucose 100 04/17/23 11:22: POC Glucose 112 H 04/17/23 16:56: POC Glucose 112 H Micro: Microbiology 04/14/23 04:35 Urine Catheter - Catheter Urine Culture - Final Presumptive E. coli Physical Exam Narrative GENERAL: cooperative HEENT: Atraumatic; normocephalic EYES; Anicteric, Normal Conjunctiva NECK; supple, normal thyroid, RESPIRATORY: Diminished to auscultation CARDIOVASCULAR: Regular S1 S2, GI: soft, normoactive bowel sounds, : No Renal angle tenderness; EXTREMITIES: No edema, no clubbing, MUSCULOSKELETAL: no muscle wasting NEURO: Awake; no lateralizing signs. SKIN: No Rash PSYCH; Flat affect Assessment & Plan Assessment/Plan (1) Proctitis: PLAN: Findings: The perianal and digital rectal examinations were normal. Moderate rectal prolapse was present. An area of moderately congested mucosa was found in the rectum. Biopsies were taken with a cold forceps for histology. Verification of patient identification for the specimen was done. Estimated blood loss was minimal. Two sessile polyps were found in the sigmoid colon and hepatic flexure. The polyps were 1 to 2 mm in size. These polyps were removed with a cold snare. Resection and retrieval were complete. Estimated blood loss: none. Stool was found in the recto-sigmoid colon, in the sigmoid colon, in the descending colon and in the cecum. The exam was otherwise without abnormality. Impression: - Preparation of the colon was fair. - Rectal prolapse. - Congested mucosa in the rectum. Biopsied. - Two 1 to 2 mm polyps in the sigmoid colon and at the hepatic flexure, removed with a cold snare. Resected and retrieved. - Stool in the recto-sigmoid colon, in the sigmoid colon, in the descending colon and in the cecum. - The examination was otherwise normal. Recommendation: - [facility]. - Resume regular diet. - Continue present medications. - Await pathology results. - Repeat colonoscopy in 3 years for surveillance. Patient is doing well. Hemoglobin seems to be stable. (2) Toxic metabolic encephalopathy: (3) Hyperammonemia: Charges/Coding Visit Charges Inpatient E&M: 83471 Subs Hosp L3 04/17/23 1844 <Electronically signed by Christopher Friend DO> Cosigner Signature (if applicable): CC: ~ Signed [facility] Work Phone: 1(563) 945-496603-05-2024 Telephone encounter Note* Telephone Encounter - Collin Henao - 04/17/2023 10:11 AM EST Pt is currently admitted to [facility] for accelerated hypertension. This admissionwas on 04/13. [facility] will be closing the order for home care at this time. New orders will need to be sent if she needs home care after her current hospital stay. [facility]Lety [id number] Miscellaneous Notes* Telephone Encounter - Collin Henao - 04/17/2023 10:11 AM EST Pt is currently admitted to [facility] for accelerated hypertension. This admissionwas on 04/13. [facility] will be closing the order for home care at this time. New orders will need to be sent if she needs home care after her current hospital stay. FYLety * Telephone Encounter - Christiane Victoria - 04/13/2023 9:08 AM EST Documents all printed, waiting for referral to be signed by Ty on Sunday and then I will fax everything back to them * Telephone Encounter - Danyelle Ewing - 04/12/2023 3:23 PM EST Name of caller: [facility] Contact phone number: [phone] Provider: Beth Lozano Practice: Ortho Chief Complaint/Reason for Call: [facility] called stating they got thereferral for the pt, but they also require the most recent OV notes Has to be within the last 90 days), a written and signed order from the dr, the pt's medication list, and a demographic sheet. Theyneed it faxed to [phone]. Please advise. Best time of day caller can be reached: Any Patient advised that office/PCP has 24-48 business hours to return their call: No documented in this [facility]03-05-2024 Progress note Author Anuja Murcia [facility] April 17, 2023 7:37am Note Date/Time April 17, 2023 7:29 am [facility] Medical Records Department [address] [place] [address] Progress Note - Hospitalist 04/17/23723 MR#: [id number] Acct: [id number] Name: DONNA MARSH Rep #:[id number] : 1955 67 From: Anuja Murcia MD PCP: Rudy Boyer [employer]ad Status:ADM IN Location: ICU ICU01-1 Reason for Visit Reason for Visit: Diagnoses Sepsis, unspecified organism (04/14/23) Elevated white blood cell count, unspecified (04/14/23) Disorder of urea cycle metabolism, unspecified (04/14/23) Opioid dependence, uncomplicated (04/14/23) Other toxic encephalopathy (04/14/23) Hypertensive urgency (04/14/23) Other specified diseases of anus and rectum (04/14/23) Idiopathic acute pancreatitis without necrosis or infection (04/14/23) Acute cystitis without hematuria (04/14/23) Hyperglycemia, unspecified (04/14/23) Subjective Subjective Patient underwent colonoscopy findings as below. Urine cultures came back positive for E. coli remains on appropriate antibiotic therapy. Patient has significant electrolyte abnormalities including hypomagnesemia hypokalemia as well as hypophosphatemia Objective Data Objective Data Vital Signs: Vital Signs Temp Pulse Resp BP Pulse Ox O2 Del Method O2 Flow Rate 98.6 F 78 14 195/81 H 96 Nasal Cannula 2 04/17/23 00:00 04/17/23 07:00 04/17/23 07:00 04/17/23 07:00 04/17/23 07:00 04/17/23 07:00 04/17/23 07:00 Oxygen Flow Rate (L/min) 2 Oxygen Delivery Method Nasal Cannula Weight: 75 kg Body Mass Index (BMI) 27.5 Intake & Output: Intake and Output for Last 24 Hours 04/15/23 04/16/23 04/17/23 23:59 23:59 23:59 Intake Total 3753.00 / 3753.00 1515.0 / 1515.0 1037.5 / 1037.5 Output Total 500 / 500 950 / 950 0 / 0 Balance 3253.00 / 3253.00 565.0 / 565.0 1037.5 / 1037.5 Lab / Micro Data 04/17/23 03:53 04/17/23 03:53 Labs: Laboratory Results - last 24 hr 04/16/23 17:27: POC Glucose 87 04/17/23 00:04: POC Glucose 97 04/17/23 03:53: WBC 11.3 H, RBC 4.53, Hgb 12.1, Hct 39.7, MCV 87.6, MCH 26.7 L, MCHC 30.5 L, RDW Std Deviation 45.1 H, RDW Coeff of Gerhard 14.1, Plt Count 231, MPV9.1, Immature Gran % (Auto) 0.300, Neut % (Auto) 66.9, Lymph % (Auto) 25.2, Long% (Auto) 5.3, Eos % (Auto) 2.0, Baso % (Auto) 0.3, Absolute Neuts (auto) 7.6, Absolute Lymphs (auto) 2.85, Nucleated RBC % 0, Sodium 145, Potassium 2.8 L, Chloride 115 H, Carbon Dioxide 26.0, Anion Gap 4 L, BUN 7, Creatinine 0.59, Estim Creat Clear Calc 66.55, Est GFR (MDRD) Af Amer 130, Est GFR (MDRD) Non-Af 108, BUN/Creatinine Ratio 11.9, Glucose 101, Calcium 8.2 L, Phosphorus 2.3 L, Magnesium 1.5 L 04/17/23 05:32: POC Glucose 100 Micro: Microbiology 04/14/23 04:35 Urine Catheter - Catheter Urine Culture - Final Presumptive E. coli Physical Exam Narrative GENERAL: cooperative HEENT: Atraumatic; normocephalic EYES; Anicteric, Normal Conjunctiva NECK; supple, normal thyroid, RESPIRATORY: Diminished to auscultation CARDIOVASCULAR: Regular S1 S2, GI: soft, normoactive bowel sounds, : No Renal angle tenderness; EXTREMITIES: No edema, no clubbing, MUSCULOSKELETAL: no muscle wasting NEURO: Awake; no lateralizing signs. SKIN: No Rash PSYCH; Flat affect Assessment & Plan Assessment/Plan (1) Acute cystitis without hematuria: (2) Proctitis: PLAN: Plan Patient is a 67-year-old lady who presented with abdominal pain with nausea and vomiting. CT of the abdomen obtained was consistent with proctitis admitted forsubsequent inpatient management 1. Acute proctitis ?Wall thickening of the rectum probably due to proctitis. Rectal mass not completely excluded. Patient started on broad-spectrum antibiotic therapy. Admitted to the intensive care unit due to relative hypotension on admission with consultation placed to Dr. Huang ? 04/17/2023 patient underwent colonoscopy findings and recommendations as below Impressions : - Preparation of the colon was fair. - Rectal prolapse. - Congested mucosa in the rectum. Biopsied. - Two 1 to 2 mm polyps in the sigmoid colon and at the hepatic flexure, removed with a cold snare. Resected and retrieved. - Stool in the recto-sigmoid colon, in the sigmoid colon, in the descending colon and in the cecum. - The examination was otherwise normal. Recommendations : - [facility]. - Resume regular diet. - Continue present medications. - Await pathology results. - Repeat colonoscopy in 3 years for surveillance. 2. Sepsis ? Sepsis ruled out 3. Acute cystitis without hematuria with E. coli ? Patient is on Zosyn cultures pending ? 04/17/2023 urine cultures came back positive for E. coli remains on appropriate antibiotic 4. Possible pancreatitis ? Patient was found to infiltration of the pancreas and mild fat stranding of the second portion of the duodenum and the head of pancreas. Patient treated symptomatically 5. Acute hypertensive urgency ? Patient blood pressure has improved 6. Diabetes mellitus type II -patient's oral 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s held. Placed on long acting insulin, Accu-Cheks a.c. and at bedtime and covered with sliding scale insulin 7. Recent fall with hip fracture ? In December 2022 underwent ORIF 8. GERD ? On PPI 9.. Dyslipidemia -Patient is on statin therapy, continued at home dose 10. Coronary artery disease ? With history of previous non-STEMI remained stable with no ischemic symptoms 11. Paroxysmal A-fib ? Rate controlled 12. History of Takotsubo cardiomyopathy ? Remains stable 13. Hypokalemia -Corrected per protocol 14. History of migraine headaches ? Currently asymptomatic 15. Restless leg syndrome ? Remains stable 17. Irritable bowel syndrome ? Stable 18. Overactive bladder ? Plan is to continue with oxybutynin 19. Psoriatic arthritis ? Remains stable 20. Osteoporosis -; with history of compression fracture and pubic rami fractures 21. DVT prophylaxis - Lovenox 40 mg sq daily plus SCD's. 22; Hypomagnesemia ? Corrected per protocol repeat labs ordered for a.m. 23. Hypophosphatemia ? Corrected per protocol Time spent in the patient's overall evaluation,decision-making process, review of diagnostic data, adjustment of management, discussion with other providers, nursing nursing and ancillary staff involved in patient's care documentation, 50 Minutes Charges/Coding Visit Charges Inpatient E&M: 15910 Subs Hosp L3 04/17/23 0737 <Electronically signed by Anuja Murcia MD> Cosigner Signature (if applicable): CC: ~ Signed [facility] Work Phone: 1(596) 627-618203-04-2024 Procedure [facility] 04-16-2023 Procedure [facility]03-04-2024 Progress note Author Anuja Murcia [facility] April 16, 2023 7:58am Note Date/Time April 16, 2023 7:30 am [facility] Medical Records Department [address] [place] [address] Progress Note - Hospitalist 04/16/2329 MR#: [id number] Acct: [id number] Name: DONNA MARSH Rep #:[id number] : 1955 67 From: Anuja Murcia MD PCP: ORESTES Cano Status:ADM IN Location: ICU ICU01-1 Reason for Visit Reason for Visit: Diagnoses Sepsis, unspecified organism (04/14/23) Elevated white blood cell count, unspecified (04/14/23) Disorder of urea cycle metabolism, unspecified (04/14/23) Opioid dependence, uncomplicated (04/14/23) Other toxic encephalopathy (04/14/23) Hypertensive urgency (04/14/23) Other specified diseases of anus and rectum (04/14/23) Idiopathic acute pancreatitis without necrosis or infection (04/14/23) Acute cystitis without hematuria (04/14/23) Hyperglycemia, unspecified (04/14/23) Subjective Subjective Patient is a 67-year-old lady who presented with abdominal pain with nausea and vomiting. CT of the abdomen obtained was consistent with proctitis admitted forsubsequent inpatient management Objective Data Objective Data Vital Signs: Vital Signs Temp Pulse Resp BP Pulse Ox O2 Del Method O2 Flow Rate 97.9 F 89 20 H 165/73 H 94 Room Air 2 04/16/23 04:00 04/16/23 07:00 04/16/23 07:00 04/16/23 07:00 04/16/23 07:00 04/16/23 07:00 04/15/23 10:00 Oxygen Flow Rate (L/min) 2 Oxygen Delivery Method Room Air Weight: 73.3 kg Body Mass Index (BMI) 26.9 Intake & Output: Intake and Output for Last 24 Hours 04/14/23 04/15/23 04/16/23 23:59 23:59 23:59 Intake Total 4164.00 / 4164.00 3753.00 / 3753.00 50 / 50 Output Total 350 / 350 500 / 500 Balance 3814.00 / 3814.00 3253.00 / 3253.00 50 / 50 Lab / Micro Data 04/16/23 05:32 04/16/23 05:32 Labs: Laboratory Results - last 24 hr 04/15/23 12:00: POC Glucose 131 H 04/15/23 16:50: POC Glucose 131 H 04/15/23 21:58: POC Glucose 136 H 04/16/23 05:32: WBC 8.8, RBC 3.98 L, Hgb 10.8 L, Hct 35.8 L, MCV 89.9, MCH 27.1,MCHC 30.2 L, RDW Std Deviation 47.1 H, RDW Coeff of Gerhard 14.4, Plt Count 182, MPV9.3, Immature Gran % (Auto) 0.300, Neut % (Auto) 66.7, Lymph % (Auto) 24.6, Long% (Auto) 5.6, Eos % (Auto) 2.6, Baso % (Auto) 0.2, Absolute Neuts (auto) 5.8, Absolute Lymphs (auto) 2.15, Nucleated RBC % 0, Sodium 146 H, Potassium 3.1 L, Chloride 120 H, Carbon Dioxide 22.0, Anion Gap 4 L, BUN 13, Creatinine 0.72, Estim Creat Clear Calc 66.55, Est GFR (MDRD) Af Amer 103, Est GFR (MDRD) Non-Af 85, BUN/Creatinine Ratio 18.0, Glucose 115 H, Calcium 8.4 L Micro: Microbiology 04/14/23 04:35 Urine Catheter - Catheter Urine Culture - Preliminary Presumptive E. coli Physical Exam Narrative GENERAL: cooperative HEENT: Atraumatic; normocephalic EYES; Anicteric, Normal Conjunctiva NECK; supple, normal thyroid, RESPIRATORY: Diminished to auscultation CARDIOVASCULAR: Regular S1 S2, GI: soft, normoactive bowel sounds, : No Renal angle tenderness; EXTREMITIES: No edema, no clubbing, MUSCULOSKELETAL: no muscle wasting NEURO: Awake; no lateralizing signs. SKIN: No Rash PSYCH; Flat affect Assessment & Plan Assessment/Plan (1) Acute cystitis without hematuria: (2) Proctitis: PLAN: Plan Patient is a 67-year-old lady who presented with abdominal pain with nausea and vomiting. CT of the abdomen obtained was consistent with proctitis admitted [facility] inpatient management 1. Acute proctitis ?Wall thickening of the rectum probably due to proctitis. Rectal mass not completely excluded. Patient started on broad-spectrum antibiotic therapy. Admitted to the intensive care unit due to relative hypotension on admission with consultation placed to Dr. Huang 2. Sepsis ? Secondary to acute proctitis as well as cystitis. Managed per protocol 3. Acute cystitis without hematuria ? Patient is on Zosyn cultures pending 4. Possible pancreatitis ? Patient was found to haveFatty infiltration of the pancreas and mild fat stranding of the second portion of the duodenum and the head of pancreas. Patient treated symptomatically 5. Acute hypertensive urgency ? Patient blood pressure has improved 6. Diabetes mellitus type II -patient's oral 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s held. Placed on long acting insulin, Accu-Cheks a.c. and at bedtime and covered with sliding scale insulin 7. Recent fall with hip fracture ? In December 2022 underwent ORIF 8. GERD ? On PPI 9.. Dyslipidemia -Patient is on statin therapy, continued at home dose 10. Coronary artery disease ? With history of previous non-STEMI remained stable with no ischemic symptoms 11. Paroxysmal A-fib ? Rate controlled 12. History of Takotsubo cardiomyopathy ? Remains stable 13. Hypokalemia -Corrected per protocol 14. History of migraine headaches ? Currently asymptomatic 15. Restless leg syndrome ? Remains stable 17. Irritable bowel syndrome ? Stable 18. Overactive bladder ? Plan is to continue with oxybutynin 19. Psoriatic arthritis ? Remains stable 20. Osteoporosis -; with history of compression fracture and pubic rami fractures 21. DVT prophylaxis - Lovenox 40 mg sq daily plus SCD's. Time spent in the patient's overall evaluation,decision-making process, review of diagnostic data, adjustment of management, discussion with other providers, nursing nursing and ancillary staff involved in patient's care documentation, 50 Minutes Charges/Coding Visit Charges Inpatient E&M: 35138 Subs Hosp L3 04/16/23 0758 <Electronically signed by Anuja Murcia MD> Cosigner Signature (if applicable): CC: ~ Signed [facility] Work Phone: 1(409) 317-187503-04-2024 History and physical note Author Anuja Brown [facility] April 16, 2023 2:06am Note Date/Time April 14, 2023 7:01 am [facility] Medical Records Department [address] [place] [address] H&P Exam - Hospitalist 04/14/23614 MR#: [id number] Acct: [id number] Name: DONNA MARSH Rep #:[id number] : 1955 67 From: Anuja Camarillo DO PCP: ORESTES Cano Status:ADM IN Location: ICU ICU01-1 HPI - General General Date of Admission: 04/14/23 Date of Service: 04/14/23 Chief Complaint: Nausea, Vomiting and Abdominal Pain. HPI Narrative DONNA MASRH, is a 67 F with a past medical history of essential hypertension, hyperlipidemia, overweight; with BMI of 26.7 this admission, BURKE, DM-2; of unknown control, remote history of tobacco abuse (quit ~1992), CAD; s/p NSTEMI (2017), history of atrial fibrillation, history of Takotsubo's cardiomyopathy, CKD; stage III, early dementia, bipolar disorder, generalized anxiety disorder, history of migraine headaches, history of opioid withdrawal, RLS, IBS, overactive bladder, frequent UTI's, history of hysterectomy, psoriatic arthritis, history of diverticulosis, GERD; with hiatal hernia, osteoporosis; with history of compression fracture and pubic rami fractures, OA; with history of back surgery and recent admission here on 12/23/2022 after she had a mechanical fall followed by a syncopal event with a subsequent Left hip fracturewith ORIF done but she did require ECF for rehabilitation with recent discharge from facility back home who presents to [facility] ER complaining of nausea, vomiting and abdominal pain. Ms. Marsh reports her symptoms began approximately x In the ER her CT scan of the abdomen and pelvis was positive for evidence of proctitis; with possible rectal mass (with direct observation/GI consult recommended) and mild fat stranding of the second portion of the duodenum and the head of the pancreas consistent with pancreatitis complicated by diffuse fatty infiltration of the pancreas with a UA mildly positive for acute cystitis;without hematuria with corresponding laboratory evidence of leukocytosis of 19.4and hyperglycemia of 312 mg/dL present on admission with a highly elevated bloodpressure 216/144 mm Hg present on admission due to suspected hypertensive urgency and she was then admitted to PCU for ongoing care for a stay that is expected to be greater than 48 hours. [facility] Medical History Anxiety Atrial fibrillation Back pain due to injury Bipolar disorder Closed intertrochanteric fracture of left hip Dementia Depression Essential (primary) hypertension Former smoker GERD (gastroesophageal reflux disease) Hearing loss, right Hiatal hernia High cholesterol Hyperlipidemia Injury of head and neck Irritable bowel Migraines Nonobstructive atherosclerosis of coronary artery NSTEMI (non-ST elevated myocardial infarction) (01/06/18) Obesity Psoriatic arthritis Restless legs Sleep apnea Takotsubo syndrome Type 2 diabetes mellitus Home Medications alendronate 70 mg tablet 70 mg PO SA osteoporosis 01/06/18 [History Last Taken Unknown] buspirone 7.5 mg tablet 15 mg PO BID anxiety 01/06/18 [History Last Taken Unknown] fluoxetine 40 mg capsule 40 mg PO BID anxiety 01/06/18 [History Last Taken Unknown] glipizide 5 mg tablet 10 mg PO DAILY antidiabetic 01/06/18 [History Last Taken Unknown] omeprazole 20 mg tablet,delayed release 20 mg PO DAILY GERD 01/06/18 [History Last Taken Unknown] oxybutynin chloride 5 mg tablet 10 mg PO DAILY 01/06/18 [History Last Taken Unknown] carvedilol 3.125 mg tablet 3.125 mg PO BID #90 tabs 07/10/18 [Rx Last Taken Unknown] ergocalciferol (vitamin D2) 1,250 mcg (50,000 unit) capsule 50,000 unit PO SA supplement 02/12/19 [History Last Taken Unknown] lisinopril 20 mg tablet 20 mg PO DAILY #30 tabs 02/15/19 [Rx Last Taken Unknown] fexofenadine 180 mg tablet 180 mg PO DAILY 07/06/22 [History Last Taken Unknown] celecoxib 200 mg capsule 200 mg PO BREAKFAST #0 caps 08/16/22 [Rx Last Taken Unknown] tramadol 50 mg tablet 50 mg PO Q6H PRN PRN Pain Score 6-10 #30 tabs 08/16/22 [Rx Last Taken Unknown] atorvastatin 20 mg tablet 20 mg PO QHS 09/15/22 [History Last Taken Unknown] cyclobenzaprine 5 mg tablet 5 mg PO TID PRN muscle spasm 09/15/22 [History Last Taken Unknown] magnesium hydroxide 400 mg/5 mL oral suspension (Milk of Magnesia) 30 ml PO DAILY PRN constipation 09/15/22 [History Last Taken Unknown] menthol 4 % topical gel (Biofreeze (menthol)) 1 applic topical BID PRN pain 09/15/22 [History Last Taken Unknown] multivitamin with iron-mineral (Super Multiple tablet) 1 tab PO DAILY 09/15/22 [History Last Taken Unknown] polyethylene glycol 3350 17 gram/dose oral powder (Miralax) 17 g PO DAILY PRN constipation 09/15/22 [History Last Taken Unknown] cephalexin 500 mg capsule 500 mg PO TID 7 days #21 caps 04/14/23 [Rx Last Taken Unknown] ondansetron 4 mg disintegrating tablet 4 mg PO TID PRN nausea and vomiting #21 tabs 04/14/23 [Rx Last Taken Unknown] Allergy/AdvReac Type Severity Reaction Status Date / Time morphine Allergy Mild confusion Verified 12/23/22 15:39 codeine Allergy Itching Verified 12/23/22 15:39 fentanyl AdvReac confusion Verified 12/23/22 15:39 naproxen AdvReac Other Verified 12/23/22 15:39 Family History Mother Cancer skin Father Cancer prostate Surgical History History of back surgery History of carpal tunnel release of both wrists History of hysterectomy History of left heart catheterization (01/07/18) Social History Smoking Status: Former smoker how long ago did patient quit smokin years ago alcohol intake: never substance use type: does not use caffeine: Yes Type: carbonated beverages Number of servings: 1 ROS ROS Narrative Review of systems: Vital Signs Vital Signs Vital Signs: 04/14/23 01:55 04/14/23 01:59 04/14/23 03:18 Temperature 96.8 F L 96.8 F L Temperature Source Temporal Temporal Pulse Rate 107 H 110 H 103 H Respiratory Rate 16 22 H 22 H Blood Pressure 216/144 H 216/114 H 225/101 H Blood Pressure Mean 168 148 142 Pulse Ox 100 98 93 Oxygen Delivery Method Room Air Room Air 04/14/23 03:22 04/14/23 04:38 04/14/23 03:51 Temperature Temperature Source Pulse Rate 104 H 89 99 Respiratory Rate 24 H 21 H 24 H Blood Pressure 194/114 H 198/99 H 202/109 H Blood Pressure Mean 140 132 140 Pulse Ox 93 92 92 Oxygen Delivery Method Room Air Room Air 04/14/23 05:32 Temperature 98.4 F Temperature Source Pulse Rate 98 Respiratory Rate 16 Blood Pressure 162/99 H Blood Pressure Mean 120 Pulse Ox 94 Oxygen Delivery Method Weight Weight: 160 lb 7.944 oz Body Mass Index (BMI) 26.6 Results Lab / Micro Data 04/14/23 02:00 04/14/23 02:00 Labs: Laboratory Results - last 24 hr 04/14/23 02:00: WBC 19.4 H, RBC 5.91 H, Hgb 15.9 H, Hct 51.3 H, MCV 86.8, MCH 26.9 L, MCHC 31.0 L, RDW Std Deviation 44.0 H, RDW Coeff of Gerhard 13.8, Plt Count 366, MPV 9.9, Immature Gran % (Auto) 0.600, Neut % (Auto) 88.6 H, Lymph % (Auto)8.2 L, Long % (Auto) 2.2, Eos % (Auto) 0.2, Baso % (Auto) 0.2, Absolute Neuts (auto) 17.2 H, Absolute Lymphs (auto) 1.59, Nucleated RBC % 0, Sodium 137, Potassium 4.2, Chloride 101, Carbon Dioxide 24.0, Anion Gap 12, BUN 16, Creatinine 1.05 H, Estim Creat Clear Calc 50.55, Est GFR (MDRD) Af Amer 67, Est GFR (MDRD) Non-Af 55 L, BUN/Creatinine Ratio 15.2, Glucose 312 H, Calcium 10.1, Total Bilirubin 1.20 H, Direct Bilirubin 0.17, AST 28, ALT 19, Alkaline Phosphatase 127 H, Total Protein 9.1 H, Albumin 4.4, Globulin 4.7 H, Lipase 21 04/14/23 03:10: Ammonia 41.0 H 04/14/23 04:35: Urine Color Yellow, Urine Clarity Sl. Cloudy, Urine pH 7.0, Ur Specific [place] 1.010, Urine Protein 500 H, Urine Glucose (UA) 1000 H, Urine Ketones 50 H, Urine Occult Blood 25 H, Urine Nitrite Negative, Urine Bilirubin Negative, Urine Urobilinogen Normal, Ur Leukocyte Esterase 25 H, Urine RBC 0 SEEN, Urine WBC 5-10 SEEN, Ur Squamous Epith Cells 0 SEEN, Urine Bacteria 3+, Urine Mucus 0 SEEN Imaging Radiology Impression Abdomen/Pelvis CT 04/14/23 04:20 IMPRESSION: 1. Wall thickening of the rectum probably due to proctitis. Rectal mass not completely excluded. Recommend direct observation. 2. Mild fat stranding adjacent to the second portion the duodenum and head of the pancreas. Correlate with laboratory values to evaluate for pancreatitis. 3. Coronary artery disease. 4. Hysterectomy. 5. Left total hip arthroplasty. Components appear well seated. 6. Numerous diverticula without diverticulitis. 7. Subsegmental atelectasis right lung base. 8. Diffuse fatty infiltration of the pancreas. 9. Old bilateral superior and inferior pubic rami fractures. Electronically Signed: Sharita Marcos MD at 4:55 EST , Assessment & Plan Assessment/Plan (1) Proctitis: (2) Rectal mass: (3) Acute cystitis without hematuria: (4) Sepsis: QUALIFIERS: Sepsis type: sepsis due to unspecified organism Sepsis acute organ dysfunction status: without acute organ dysfunction Qualified Code(s): A41.9 - Sepsis, unspecified organism (5) Pancreatitis: QUALIFIERS: Acute pancreatitis complication: unspecified Chronicity: acute Pancreatitis type: idiopathic Qualified Code(s): K85.00 - Idiopathic acute pancreatitis without necrosis or infection (6) Hypertensive urgency: PLAN: Plan 1. CT scan of the abdomen and pelvis was positive for evidence of proctitis; with possible rectal mass (with direct observation/GI consult recommended) with leukocytosis of 19.4 present on admission and clinical evidence of Sepsis with patient dropping her blood pressures into the 70 mm Hg systolic range around 7:00 AM - Admit to ICU. Continue broad-spectrum antibiotics and await culture and sensitivity data. Give Tylenol prn [id number] (level 1-5/10) pain or fever. Give Dilaudid IV prn for severe (level 6-10/10) pain. Second lactate ordered as per Sepsis protocol. Finally, we will consult Dr. Huang of gastroenterology to see this patient on-rounds in the AM for further recommendations regarding possible endoscopy with help appreciated in advance. 2. Acute cystitis; without hematuria compounding #1 - Continue IV Zosyn also initiated for #1 and await culture and sensitivity data. 3. Acute Pancreatitis with fatty infiltration of the pancreas and mild fat stranding of the second portion of the duodenum and the head of the pancreas with frequent nausea and vomiting complicating #1 & #2 - Keep NPO except for sips, ice chips and medications. Check daily lipase. Check Lipid Profile to evaluatefor possible hypertriglyceridemia. Give Zofran IV prn nausea plus give prn IM Phenergan for breakthrough nausea and vomiting. 4. Hypertensive urgency with blood pressure of 216/144 mm Hg present on admission - Resolved with patient given antihypertensives and pain medications that may have contributed to precipitous decrease in blood pressure. Hold scheduled antihypertensives in light of #1. 5. DM-2; uncontrolled with hyperglycemia of 312 mg/dL present on admission - NPO except for sips, ice chips and medications for now. Check FSBS q. 6 hours plus lowest intensity SS. Check HgbA1c. 6. Recent admission here on 12/23/2022 after she had a mechanical fall followedby a syncopal event with a subsequent Left hip fracture with ORIF done but she did require ECF for rehabilitation with recent discharge from facility back homeproviding the back drop for #1 - #5 - Noted with patient having spent ~3 months at [facility]. PT/OT and case management to see patient on-rounds in AM forfurther recommendations with help appreciated in advance. 7. Early dementia with bipolar disorder and generalized anxiety disorder - Noted. Continue supportive care and monitor for improvement. 8. Hyperlipidemia - Resume statin and check lipid profile. 9. Overweight; with BMI of 26.7 this admission with BURKE - Weight loss will be recommended. 10. Remote history of tobacco abuse (quit ~1992) - Noted. 11. CAD; s/p NSTEMI (2018) - Stable. Serialize troponin. 12. History of atrial fibrillation - Stable. 13. History of Takotsubo's cardiomyopathy - Stable. 14. CKD; stage III - Stable. 15. History of migraine headaches - Noted. 16. History of opioid withdrawal - Noted. 17. RLS - Continue current treatment. 18. IBS - Stable. 19. Overactive bladder - Current regimen to be continued. 20. History of hysterectomy - Noted. 21. Psoriatic arthritis - Stable. 22. History of diverticulosis - Stable. 23. GERD; with hiatal hernia - Continue PPI IV. 24. Osteoporosis; with history of compression fracture and pubic rami fractures- Noted. 25. OA; with history of back surgery - Noted. 26. DVT prophylaxis - Lovenox 40 mg sq daily plus SCD's. Total time: Approximately 75 minutes. Charges/Coding Visit Charges Inpatient E&M: 25690 Init Hosp L3 04/14/23 0749 <Electronically signed by Anuja Noel DO> Cosigner Signature (if applicable): CC: ORESTES Boyer; Dr. Anuja Noel DO~ Signed ADDENDUM by Dr. Anuja Noel DO on 04/14/23 at 0754 Addendum Full ROS could not be done due to patient's dementia with limited ability to understand and respond to questions. Patient's was at bedside to help augment history. 04/14/23 0754<Electronically signed by Anuja Noel DO> Cosigner Signature (if applicable): cc: ORESTES Boyer; Dr. Anuja Noel DO ~* Signed ADDENDUM by Dr. Anuja Noel DO on 04/16/23 at 0206 Addendum HPI narrative revision: Donna Marsh, is a 67-year-old female with a past medical history of essential hypertension, hyperlipidemia, overweight with BMI of 26.7 this admission, obstructive sleep apnea, diabetes mellitus type 2 of unknown control,remote history of tobacco abuse (quit 1992), coronary artery disease status postnon-ST elevation [place] (2018), history of atrial fibrillation, history of Takotsubo's cardiomyopathy, chronic kidney disease stage III, early dementia, bipolar disorder, generalized anxiety disorder, history of migraine headaches, history of opiate withdrawal, restless leg syndrome, irritable bowel syndrome, overactive bladder, frequent UTIs, history of hysterectomy, psoriatic arthritis,history of diverticulosis, GERD with hiatal hernia, osteoporosis; with history of compression fracture and pubic rami fractures, osteoarthritis; with history of back surgery and recent admission here in mid December 2022 after she had a mechanical fall followed by a syncopal event with a subsequent left hip fracturewith ORIF done but she did require ECF for rehabilitation with recent discharge from facility back home who presents to [facility] complaining of nausea, vomiting and abdominal pain. Ms. Tyson is not a reliable historian at this time therefore history is to be gathered from the chart, medical staff and computer. According to the records she just returned home approximately 1 week ago with patient having difficulty taking her medications the way she was receiving them at her extended care facility. Then over the last few hours prior to admission she developed generalized abdominal discomfort with bouts of nausea and vomiting and overall sense of feeling unwell. She also stated that she had not had her oxycodone for approximately 24 hours which was one of her routine medications at her ECF. There was no report of fever, chills, chest pain or shortness of breath. In the ER her CT scan of the abdomen pelvis was positive for evidence of proctitis; with possible rectal mass (with direct observation/GI consult recommended) and mild fat stranding of the second portionof the duodenum in the head of the pancreas consistent with pancreatitis complicated by diffuse fatty infiltration of the pancreas with a UA mildly positive for acute cystitis; without hematuria with corresponding laboratory evidence of leukocytosis of 19.4 and hyperglycemia of 312 mg/dL present on admission with a highly elevated blood pressure of 216/144 mmHg present on admission due to suspected hypertensive urgency and she was then admitted to thePCU for ongoing care for stay is expected to be greater than 48 hours. 04/16/23 0206<Electronically signed by Anuja Noel DO> Cosigner Signature (if applicable): cc: ORESTES Boyer; Dr. Anuja Noel DO ~* Signed [facility] Work Phone: 1(227) 511-321103-03-2024 Consult note Author Christopher Friend [facility] April 15, 2023 5:19pm Note Date/Time April 15, 2023 5:02 pm [facility] Medical Records Department [address] [place] [address] Consultation - GI 04/15/23 1658 MR#: [id number] Acct: [id number] Name: DONNA MARSH Rep #:[id number] : 1955 67 From: Christopher Huang DO PCP: ORESTES Cano Status:ADM IN Location: ICU ICU01-1 HPI Consult Data Date of Consult: 04/15/23 HPI Narrative Reason for Consultation: Abnormal CAT scan HPI Narrative: DONNA MARSH, is a 67 F who presented to the ED with altered mental status followed by nausea, vomiting and abdominal pain. She has a past medical historyof essential hypertension, CAD; s/p NSTEMI, history of atrial fibrillation, history of Takotsubo's cardiomyopathy, CKD. She is also having progressive problems with both her hips requiring 2 hip surgeries and a repeat hip surgery after the imaging her right hip from another fall. In the ED she was diagnosed with possible hypertensive urgency and was giving medicines to decrease her blood pressure. However she developed hypotension in the ED and it was not known whether it was from the hypertensive medicines or urinary tract infection. In the ER her CT scan of the abdomen and pelvis was positive for evidence of proctitis; with possible rectal mass (with direct observation/GI consult recommended) and mild fat stranding of the second portion of the duodenum and the head of the pancreas consistent with pancreatitis complicated by diffuse fatty infiltration of the pancreas. She denies any alcohol or street drugs. Toher knowledge she has not been placed on any medicines associated with pancreatitis. There were no gallstones seen in the gallbladder or hepatobiliarysystem. Laboratory evidence of leukocytosis of 19.4 likely secondary to UTI which is a lot better after being treated with IV antibiotics and hyperglycemia of 312 mg/dL present on admission with a highly elevated blood pressure 216/144 mm Hg present on admission due to suspected hypertensive urgency. [facility] Medical History Anxiety Atrial fibrillation Back pain due to injury Bipolar disorder Closed intertrochanteric fracture of left hip Dementia Depression Essential (primary) hypertension Former smoker GERD (gastroesophageal reflux disease) Hearing loss, right Hiatal hernia High cholesterol Hyperlipidemia Injury of head and neck Irritable bowel Migraines Nonobstructive atherosclerosis of coronary artery NSTEMI (non-ST elevated myocardial infarction) (01/06/18) Obesity Psoriatic arthritis Restless legs Sleep apnea Takotsubo syndrome Type 2 diabetes mellitus Home Medications alendronate 70 mg tablet 70 mg PO SA osteoporosis 01/06/18 [History Last Taken Unknown] buspirone 7.5 mg tablet 15 mg PO BID anxiety 01/06/18 [History Last Taken Unknown] fluoxetine 40 mg capsule 40 mg PO BID anxiety 01/06/18 [History Last Taken Unknown] glipizide 5 mg tablet 10 mg PO DAILY antidiabetic 01/06/18 [History Last Taken Unknown] omeprazole 20 mg tablet,delayed release 20 mg PO DAILY GERD 01/06/18 [History Last Taken Unknown] carvedilol 3.125 mg tablet 3.125 mg PO BID #90 tabs 07/10/18 [Rx Last Taken Unknown] ergocalciferol (vitamin D2) 1,250 mcg (50,000 unit) capsule 50,000 unit PO .COMPLEX supplement 02/12/19 [History Last Taken Unknown] lisinopril 20 mg tablet 20 mg PO DAILY #30 tabs 02/15/19 [Rx Last Taken Unknown] cephalexin 500 mg capsule 500 mg PO TID 7 days #21 caps 04/14/23 [Rx Last Taken Unknown] gabapentin 100 mg capsule 100 mg PO Q8H pain 04/14/23 [History Last Taken Unknown] meloxicam 7.5 mg tablet 7.5 mg PO DAILY pain 04/14/23 [History Last Taken Unknown] ondansetron 4 mg disintegrating tablet 4 mg PO TID PRN nausea and vomiting #21 tabs 04/14/23 [Rx Last Taken Unknown] oxybutynin chloride 10 mg tablet,extended release 24 hr 20 mg PO DAILY bladder 04/14/23 [History Last Taken Unknown] oxycodone 5 mg tablet 5 mg PO .COMPLEX pain 04/14/23 [History Last Taken Unknown] simvastatin 40 mg tablet 40 mg PO DAILY cholesterol 04/14/23 [History Last Taken Unknown] turmeric 1 cap PO DAILY supplement 04/14/23 [History Last Taken Unknown] Allergy/AdvReac Type Severity Reaction Status Date / Time morphine Allergy Mild confusion Verified 12/23/22 15:39 codeine Allergy Itching Verified 12/23/22 15:39 fentanyl AdvReac confusion Verified 12/23/22 15:39 naproxen AdvReac Other Verified 12/23/22 15:39 Family History Mother Cancer skin Father Cancer prostate Surgical History History of back surgery History of carpal tunnel release of both wrists History of hysterectomy History of left heart catheterization (01/07/18) Social History Smoking Status: Former smoker how long ago did patient quit smokin years ago alcohol intake: never substance use type: does not use caffeine: Yes Type: carbonated beverages Number of servings: 1 ROS ROS Narrative Pertinent positives and pertinent negatives as noted in HPI. All other systems were reviewed and are negative Physical Exam Narrative Well-developed chronically ill-appearing woman who is laying on her side, mildlysedated, no respiratory distress. HEENT: Facial edema has resolved. Mucous membranes moist. Nasal cannula in place. Lungs are clear bilaterally, no wheezes rales or rhonchi. Heart tachycardic S1-S2 Abdomen is soft nontender Extremities have trace pitting edema. Neuro nonfocal. Still has great difficulty turning sitting up on her own because of pain and/or motivation. Lab / Micro Data 04/15/23 04:15 04/15/23 04:15 Labs: Laboratory Results - last 24 hr 04/14/23 17:16: POC Glucose 209 H 04/14/23 23:17: POC Glucose 151 H 04/15/23 04:15: WBC 10.5, RBC 4.30, Hgb 11.9 L, Hct 38.6, MCV 89.8, MCH 27.7, MCHC 30.8 L, RDW Std Deviation 47.8 H, RDW Coeff of Gerhard 14.6, Plt Count 242, MPV9.2, Immature Gran % (Auto) 0.300, Neut % (Auto) 69.8, Lymph % (Auto) 22.3, Long% (Auto) 6.3, Eos % (Auto) 1.1, Baso % (Auto) 0.2, Absolute Neuts (auto) 7.3, Absolute Lymphs (auto) 2.34, Nucleated RBC % 0, Sodium 144, Potassium 3.8, Chloride 116 H, Carbon Dioxide 23.0, Anion Gap 5, BUN 22 H, Creatinine 0.94, Estim Creat Clear Calc 56.14, Est GFR (MDRD) Af Amer 76, Est GFR (MDRD) Non-Af 63, BUN/Creatinine Ratio 23.5 H, Glucose 151 H, Calcium 7.8 L, Phosphorus 3.3, Magnesium 1.8, Total Bilirubin 0.50, AST 12 L, ALT 14, Alkaline Phosphatase 73, Total Protein 6.3 L, Albumin 3.1 L, Globulin 3.2, Albumin/Globulin Ratio 1.0, Lipase 19, TSH 3.89 H 04/15/23 05:25: POC Glucose 129 H 04/15/23 12:00: POC Glucose 131 H Micro: Microbiology 04/14/23 04:35 Urine Catheter - Catheter Urine Culture - Preliminary Presumptive E. coli Assessment & Plan Assessment/Plan (1) Proctitis: (2) Rectal mass: (3) Acute cystitis without hematuria: (4) Sepsis: QUALIFIERS: Sepsis type: sepsis due to unspecified organism Sepsis acute organ dysfunction status: without acute organ dysfunction QualifiedCode(s): A41.9 - Sepsis, unspecified organism (5) Pancreatitis: QUALIFIERS: Chronicity: acute Pancreatitis type: idiopathic Acute pancreatitis complication: unspecified Qualified Code(s): K85.00 - Idiopathic acute pancreatitis without necrosis or infection (6) Hypertensive urgency: PLAN: Plan 67-year-old comes in with her mental status followed by nausea, vomiting likely secondary to hypertensive urgency and possible underlying urinary tract infection. She had imaging of inflammation versus inflammatory mass in the sigmoid and rectal area. CT scan of the abdomen and pelvis was positive for evidence of proctitis; with possible rectal mass differential diagnosis does include underlying malignancy, ischemic colitis, stercoral ulcer. Patient has never had a colonoscopy in the past. Recommend colonoscopy with direct visualization. She was explained alternatives, risk, benefits including not withstanding bleeding, infection, sepsis, perforation, need for emergent surgery and . She will have an ASA of 3. Possible acute Pancreatitis with fatty infiltration of the pancreas and mild fatstranding of the second portion of the duodenum and the head of the pancreas with frequent nausea and vomiting. Differential diagnosis does include ischemicinjury to the duodenum causing local inflammation in the pancreas and fat planes. There is no signs of choledocholithiasis or cholelithiasis. Agree withchecking Lipid Profile to evaluate for possible hypertriglyceridemia. I will check IgG4 to see if there is any signs of autoimmune pancreatitis along with check an ESR, CRP, ANCA and NORMA antibodies Charges/Coding Visit Charges Inpatient E&M: 63457 Init Hosp L3 04/15/23 1719 <Electronically signed by Christopher Huang DO> Cosigner Signature (if applicable): CC: ORESTES Boyer; Dr. Anuja Noel DO; Christopher Huang DO~ Signed [facility] Work Phone: 1(647) 914-150703-03-2024 Progress note Author Tamiko Quigley [facility] April 15, 2023 10:55am Note Date/Time April 15, 2023 10:5 5am [facility] Medical Records Department [address] [place] [id number] Progress Note - Hospitalist 04/15/23 1045 MR#: [id number] Acct: [id number] Name: DONNA MARSH Rep #:[id number] : 1955 67 From: Tamiko Quigley DO PCP: ORESTES Cano Status:ADM IN Location: ICU ICU01-1 Reason for Visit Reason for Visit: Abdominal pain, nausea, vomiting Subjective Subjective Blood pressure was soft overnight and she did receive 1 more liter of IV fluids switch her pressure has responded. Systolics have been in 100s today. Will monitor in the ICU in case there are any more pressure issues however this seemsto be improving. Mentation is back to her baseline and she states her abdominalpain is better. No specific complaints today. She does state that she is stillfollowing with Dr. Brito and is to be seen at the [facility] in May. Objective Data Objective Data Vital Signs: Vital Signs Temp Pulse Resp BP Pulse Ox O2 Del Method O2 Flow Rate 97.5 F L 77 14 101/61 98 Nasal Cannula 2 04/15/23 08:00 04/15/23 10:00 04/15/23 10:00 04/15/23 10:00 04/15/23 10:00 04/15/23 10:00 04/15/23 10:00 Oxygen Flow Rate (L/min) 2 Oxygen Delivery Method Nasal Cannula Weight: 71.9 kg Body Mass Index (BMI) 26.4 Intake & Output: Intake and Output for Last 24 Hours 04/13/23 04/14/23 04/15/23 23:59 23:59 23:59 Intake Total 4164.00 / 4164.00 1386.25 / 1386.25 Output Total 350 / 350 100 / 100 Balance 3814.00 / 3814.00 1286.25 / 1286.25 Lab / Micro Data 04/15/23 04:15 04/15/23 04:15 Labs: Laboratory Results - last 24 hr 04/14/23 11:36: POC Glucose 230 H 04/14/23 17:16: POC Glucose 209 H 04/14/23 23:17: POC Glucose 151 H 04/15/23 04:15: WBC 10.5, RBC 4.30, Hgb 11.9 L, Hct 38.6, MCV 89.8, MCH 27.7, MCHC 30.8 L, RDW Std Deviation 47.8 H, RDW Coeff of Gerhard 14.6, Plt Count 242, MPV9.2, Immature Gran % (Auto) 0.300, Neut % (Auto) 69.8, Lymph % (Auto) 22.3, Long% (Auto) 6.3, Eos % (Auto) 1.1, Baso % (Auto) 0.2, Absolute Neuts (auto) 7.3, Absolute Lymphs (auto) 2.34, Nucleated RBC % 0, Sodium 144, Potassium 3.8, Chloride 116 H, Carbon Dioxide 23.0, Anion Gap 5, BUN 22 H, Creatinine 0.94, Estim Creat Clear Calc 56.14, Est GFR (MDRD) Af Amer 76, Est GFR (MDRD) Non-Af 63, BUN/Creatinine Ratio 23.5 H, Glucose 151 H, Calcium 7.8 L, Phosphorus 3.3, Magnesium 1.8, Total Bilirubin 0.50, AST 12 L, ALT 14, Alkaline Phosphatase 73, Total Protein 6.3 L, Albumin 3.1 L, Globulin 3.2, Albumin/Globulin Ratio 1.0, Lipase 19, TSH 3.89 H 04/15/23 05:25: POC Glucose 129 H ABG Data ABG results: ABG 04/14/23 15:36 Specimen Type ART Sample Site R Brach pH 7.37 Bicarbonate Actual 22.3 Total CO2 24 Base Excess -3 L O2 Saturation 97 O2 % 2.0 ABG pCO2 38.8 ABG pO2 96 Kyree Test Positive O2 Delivery Device Cannula Vent Mode Not entered Physical Exam Const alert, oriented x3, no apparent distress and well nourished; Negative for average body habitus or healthy appearing Constitutional Narrative: Upper middle-aged, white female, lying in bed, mentation is much improved today and she is able to participate in history and give me accurate details, appears comfortable and nontoxic HEENT head/scalp atraumatic and moist oral mucous membranes HEENT Narrative: Dentition is poor, Mallampati is 2-3, no thrush Head and Scalp: normocephalic Resp normal respiratory effort, no retractions, no use of accessory muscles and No clear to auscultation bilaterally Resp Narrative: Diminished at bases bilaterally with few scattered crackles Auscultation: crackles; Negative for rhonchi or wheezes Cardio regular rate, regular rhythm, S1 normal heart sound, S2 normal heart sound, no murmurs, no rub, no gallops and no clicks GI normal to inspection, nondistended, normoactive bowel sounds, soft to palpation and non-tender Extremity no clubbing, cyanosis or edema Extremity Narrative: Pedal pulses are 2+ Neuro oriented x3, moves all extremities and no focal motor deficits Neuro Narrative: Significant generalized weakness noted with patient having decreased ability to perform even simple bed mobility Speech: speech normal Psych affect normal Psych Narrative: Very pleasant, eye contact is good, patient interacts appropriately Assessment & Plan Assessment/Plan (1) Acute cystitis without hematuria: (2) Rectal mass: (3) Hyperammonemia: (4) Toxic metabolic encephalopathy: (5) Opiate dependence: (6) Leukocytosis: (7) Hyperglycemia: (8) Proctitis: PLAN: Plan Acute urinary tract infection -Sepsis is ruled out as patient does not meet criteria per sep 3 criteria -Lactic acid was normal, no endorgan damage identified -Blood and urine cultures remain pending -Continue Zosyn -Transition antibiotics as culture and sensitivities result -Continue to monitor in ICU and transferred to medical floor tomorrow as long asshe continues to do well Proctitis versus rectal mass -Continue Zosyn -Patient has never had a colonoscopy -GI is consulting and awaiting input Hyperammonemia -Mental status is back to baseline -No need to repeat -She does not have history of cirrhosis or any significant liver pathology on her CT Toxic/metabolic encephalopathy -Suspect multifactorial related to medications, infection, potentially hyperammonemia -Mild elevation in suspect euthyroid sick with a TSH of 3.89--> no need to checkfree T4 Leukocytosis -Resolved Elevated serum creatinine -Resolved -Repeat in a.m. Multiple lytic lesions -Patient has had biopsy that was unremarkable -Following as an outpatient with Dr. Oden -Patient today is able to tell me that she has follow-up at [facility] in May -Recommend ongoing outpatient follow-up History of left-sided Prevotella empyema -Does not appear to have any current respiratory pathology History of left intertrochanteric fracture -Surgery done late July 2022 -Patient appears to be on chronic medication for pain -Per discussion with nurse her daughter, who is out of state, reported that her mother is supposed to be weaning off narcotics and there seems to be somewhat ofan opiate dependence at this time -Hold Celebrex Opiate dependence -Wean oxycodone slowly to avoid withdrawal symptoms -Will stop as needed oxycodone 5 mg and keep her on her scheduled oxycodone 3 times daily--> would recommend slow taper with time DM-2 -Hold home oral antihyperglycemics -Blood sugars markedly elevated on admission but fasting this morning was 151 -Continue SSI -Accu-Cheks as ordered -Most recent hemoglobin A1c from 01/02/2023 is 5.0 Hypertension -Continue to hold carvedilol and lisinopril until blood pressure is more stabilized Hyperlipidemia -Continue home statin Osteoporosis/vitamin D deficiency -Continue vitamin D supplementation and Fosamax GERD -Continue home PPI Urinary incontinence -Hold oxybutynin as this could cause increased confusion -Would recommend discontinuation of oxybutynin altogether at discharge Depression/anxiety -Continue home fluoxetine -Continue home BuSpar DVT prophylaxis -Continue subcu Lovenox CODE STATUS -Full code Charges/Coding Visit Charges Inpatient E&M: 75824 Subs Hosp L2 04/15/23 1055 <Electronically signed by Tamiko Quigley DO> Cosigner Signature (if applicable): CC: ~ Signed [facility] Work Phone: 1(218) 531-873203-03-2024 Progress note Author Tamiko Quigley [facility] April 15, 2023 10:45am Note Date/Time April 14, 2023 3:32 pm [facility] Medical Records Department [address] [place] [address] Progress Note - Hospitalist 04/14/23 1508 MR#: [id number] Acct: [id number] Name: DONNA MARSH Rep #:[id number] : 1955 67 From: Tamiko Quigley DO PCP: ORESTES Cano Status:ADM IN Location: ICU ICU01-1 Reason for Visit Reason for Visit: Nausea/vomiting/abdominal pain Subjective Subjective Mrs. Marsh is a 67-year-old white female who presented to the emergency department at [facility] on 04/14/2023 in the morning with nausea, vomiting, abdominal pain. She has significant complicated past medical history. She had a recent admission here in December 2022 after she had a mechanical fall with resulting hip fracture and ORIF followed by a syncopal event and was discharged to a SNF for rehabilitation and was discharged from the facility recently. It sounds like she has been home for about a week and that has been difficult for her keeping her medications straight. A few hours prior to presentation she developed generalized abdominal discomfort with bouts of nauseaand vomiting and the overall sense of not feeling well. She has had no focal abdominal discomfort. She has had no fevers, chills, chest pain, or shortness of breath. Vital signs on presentation showed temperature of 96.8, pulse rate of 107, initial blood pressure was 216/144 and trended down after she was given narcotics. ED physician suspected that she may be having some withdrawal from her opiates that she had not taken them in about 24 to 48 hours. Respiratory rate was 16 and oxygen saturation were 100% on room. She did have some transient hypotension after she received narcotics and IV fluids for which she was given more IV fluids with resultant normotension following. Her CBC showed a marked leukocytosis with a white count of 19.4, her hemoglobin was elevated way above her baseline of 15.9 with a normal platelet count and a left shift of an 88.6% neutrophilia. I suspect that some of this is related to her depleted volume status on presentation all cell lines are above her baseline. Her chemistry panel is unremarkable other than her creatinine is slightly above her baseline with her baseline being 0.6-0.8 and her current creatinine being 1.05. Her glucose was markedly elevated at 312. Bilirubin slightly elevated at 1.2 however LFTs are otherwise unremarkable. Her ammonia level slightly elevated at41, lactate was normal and lipase was 21. Her UA was consistent with some dehydration and infection. She had leuk esterase, white cells, and 3+ bacteria. A CT of her abdomen pelvis with IV contrast was performed and showed wall thickening in the rectum suspected related to proctitis versus rectal mass, mildfat stranding adjacent to the second portion of the duodenum, coronary artery disease, hysterectomy, left total hip arthroplasty, numerous diverticuli, right subsegmental atelectasis, diffuse fatty infiltration of the pancreas and old bilateral superior and inferior pubic ramus fractures. Cultures were obtained and IV antibiotics were initiated with Zosyn given the concern for urinary tractinfection and proctitis. Fluid boluses were given at 30 cc/kg due to her hypotension and she was given narcotics as there was suspicion she was in some withdrawal at the time of admission. With her transient hypotension she was admitted the IMCU for further monitoring however she does not meet SEP 3 criteria for sepsis. Objective Data Objective Data Vital Signs: Vital Signs Temp Pulse Resp BP Pulse Ox O2 Del Method O2 Flow Rate 98.5 F 90 16 105/56 L 98 Nasal Cannula 2 04/14/23 12:00 04/14/23 15:00 04/14/23 15:00 04/14/23 15:00 04/14/23 15:00 04/14/23 15:00 04/14/23 15:00 Oxygen Flow Rate (L/min) 2 Oxygen Delivery Method Nasal Cannula Weight: 71 kg Body Mass Index (BMI) 26.0 Intake & Output: Intake and Output for Last 24 Hours 04/12/23 04/13/23 04/14/23 23:59 23:59 23:59 Intake Total 2049.25 / 2049.25 Output Total 250 / 250 Balance 1800.25 / 1800.25 Lab / Micro Data 04/15/23 04:15 04/15/23 04:15 Labs: Laboratory Results - last 24 hr 04/14/23 02:00: WBC 19.4 H, RBC 5.91 H, Hgb 15.9 H, Hct 51.3 H, MCV 86.8, MCH 26.9 L, MCHC 31.0 L, RDW Std Deviation 44.0 H, RDW Coeff of Gerhard 13.8, Plt Count 366, MPV 9.9, Immature Gran % (Auto) 0.600, Neut % (Auto) 88.6 H, Lymph % (Auto)8.2 L, Long % (Auto) 2.2, Eos % (Auto) 0.2, Baso % (Auto) 0.2, Absolute Neuts (auto) 17.2 H, Absolute Lymphs (auto) 1.59, Nucleated RBC % 0, Sodium 137, Potassium 4.2, Chloride 101, Carbon Dioxide 24.0, Anion Gap 12, BUN 16, Creatinine 1.05 H, Estim Creat Clear Calc 50.55, Est GFR (MDRD) Af Amer 67, Est GFR (MDRD) Non-Af 55 L, BUN/Creatinine Ratio 15.2, Glucose 312 H, Calcium 10.1, Total Bilirubin 1.20 H, Direct Bilirubin 0.17, AST 28, ALT 19, Alkaline Phosphatase 127 H, Total Protein 9.1 H, Albumin 4.4, Globulin 4.7 H, Triglycerides 98, Cholesterol 182, LDL Cholesterol 99, VLDL Cholesterol 20, HDL Cholesterol 63, Lipase 21 04/14/23 03:10: Ammonia 41.0 H 04/14/23 04:35: Urine Color Yellow, Urine Clarity Sl. Cloudy, Urine pH 7.0, Ur Specific [place] 1.010, Urine Protein 500 H, Urine Glucose (UA) 1000 H, Urine Ketones 50 H, Urine Occult Blood 25 H, Urine Nitrite Negative, Urine Bilirubin Negative, Urine Urobilinogen Normal, Ur Leukocyte Esterase 25 H, Urine RBC 0 SEEN, Urine WBC 5-10 SEEN, Ur Squamous Epith Cells 0 SEEN, Urine Bacteria 3+, Urine Mucus 0 SEEN 04/14/23 07:25: Lactic Acid 1.9, Procalcitonin 0.12 H 04/14/23 11:36: POC Glucose 230 H Radiography Diagnostic Testing: Radiology Impression Abdomen/Pelvis CT 04/14/23 04:20 IMPRESSION: 1. Wall thickening of the rectum probably due to proctitis. Rectal mass not completely excluded. Recommend direct observation. 2. Mild fat stranding adjacent to the second portion the duodenum and head of the pancreas. Correlate with laboratory values to evaluate for pancreatitis. 3. Coronary artery disease. 4. Hysterectomy. 5. Left total hip arthroplasty. Components appear well seated. 6. Numerous diverticula without diverticulitis. 7. Subsegmental atelectasis right lung base. 8. Diffuse fatty infiltration of the pancreas. 9. Old bilateral superior and inferior pubic rami fractures. Electronically Signed: Sharita Marcos MD at 4:55 EST , Assessment & Plan Assessment/Plan (1) Acute cystitis without hematuria: (2) Rectal mass: (3) Hyperammonemia: (4) Toxic metabolic encephalopathy: (5) Opiate dependence: (6) Leukocytosis: (7) Hyperglycemia: (8) Proctitis: PLAN: Plan Acute urinary tract infection -Sepsis is ruled out as patient does not meet criteria per sep 3 criteria --Lactic acid was normal, no endorgan damage identified -Blood and urine cultures are pending -Continue Zosyn -Transition antibiotics as culture and sensitivities result -Patient was given IV fluids at 30 cc/kg of body weight -She did have transient hypotension but blood pressures have normalized -Initially thought this may be related to infection however she was also given IV narcotics and this may have also contributed -Blood pressures are currently stable after IV fluids -Continue to monitor in ICU and transition if remains stable overnight Proctitis versus rectal mass -Continue Zosyn -GI is following Hyperammonemia -mild at 41 and I doubt contributing to encephalopathy considerably however I will give for lactulose x 1 and see if this helps her mentation -She does not have history of cirrhosis or any significant liver pathology on her CT Toxic/metabolic encephalopathy -Suspect multifactorial related to medications, infection, potentially hyperammonemia -Check TSH Leukocytosis -See above -Also suspect some dehydration is contributing as all cell lines are elevated from baseline Elevated serum creatinine -Baseline recently has been between 0.6 and 0.8 -Serum creatinine admission was 1.05 -IV fluids given -Repeat in a.m. Multiple lytic lesions -Patient has had biopsy that was unremarkable -Following as an outpatient with Dr. Brito -Recommend ongoing outpatient follow-up History of left-sided Prevotella empyema -Does not appear to have any current respiratory pathology History of left intertrochanteric fracture -Surgery done late July 2022 -Patient appears to be on chronic medication for pain -Per discussion with nurse her daughter, who is out of state, reported that her mother is supposed to be weaning off narcotics and there seems to be somewhat ofan opiate dependence at this time -Hold Celebrex Opiate dependence -Wean oxycodone slowly to avoid withdrawal symptoms DM-2 -Hold home oral antihyperglycemics -Blood sugars markedly elevated on admission -Continue SSI -Accu-Cheks as ordered -If remains elevated may need additional medication and will check A1c Hypertension -Hold home carvedilol and lisinopril now for soft blood pressures on admission Hyperlipidemia -Continue home statin Osteoporosis/vitamin D deficiency -Continue vitamin D supplementation and Fosamax CKD stage IIIb -Renal function is completely normalized at 0.67 -Suspect patient may be slightly volume overloaded and this is not her baseline renal function -Continue Lasix -Repeat BMP in a.m. GERD -Continue home PPI Urinary incontinence -Hold oxybutynin as this could cause increased confusion -Would recommend discontinuation of oxybutynin altogether at discharge Depression/anxiety -Continue home fluoxetine -Continue home BuSpar DVT prophylaxis -Continue subcu Lovenox CODE STATUS -Full code 04/15/23 1045 <Electronically signed by Tamiko Quigley DO> Cosigner Signature (if applicable): CC: ~ Signed [facility] Work Phone: 1(591) 910-911703-02-2024 Discharge summary Author Marcos Hoffman [facility] April 14, 2023 7:48am Note Date/Time April 14, 2023 5:15 am [facility] Medical Records Department [address] [place] [address] Emergency Department Summary 04/14/23 MR#: [id number] Acct: [id number] Name: DONNA MARSH Rep #:[id number] : 1955 67 From: Marcos Hoffman DO PCP: ORESTES Cano Status:ADM IN Location: PCU [id number] ADDENDUM by Marcos Hoffman DO on 04/14/23 at 0748 While the patient was waiting for her admitted bed to become available she spontaneously dropped her blood pressure which had been reading high for her entire ER stay down to a hypotensive value of approximately 80/60. The blood pressure was checked multiple times and also performed on each arm with similar readings. She was started on 30 ml/kg fluid resuscitation which is approximately 2 L and with this her blood pressure improved to 123/63. The hospitalist was notified of the sudden hypotension as well as the improvement with fluids and recommends that her bed be changed to ICU status. 04/14/23 0748<Electronically signed by Marcos Hoffman DO> Cosigner Signature (if applicable): cc: [employer] Rudy Boyer ~* Signed HPI History of Present Illness Chief Complaint: Nausea/Vomiting/Diarrhea Informant: patient and spouse/S.O. Narrative Narrative: Patient is a 67-year-old female with past medical history of hypertension hyperlipidemia diabetes chronic kidney disease and previous hip fracture requiring ORIF. Patient and spouse state that after the fracture and her hospital stay she was sent to the [facility] where she has been since approximately August/September. They state that she is only been home for the last week or so and that there is been difficulty in having her continue the medications which she was receiving at the [facility]. Patient states that inthe last few hours she developed generalized abdominal discomfort with bouts of nausea and vomiting and overall sense of feeling unwell. She also states that is been approximate 24 hours since her last oxycodone use which she also reportsshe was taking daily at the [facility]. Otherwise she denies any fevers or chills or chest pain or shortness of breath. [facility] Medical History Anxiety Atrial fibrillation Back pain due to injury Bipolar disorder Closed intertrochanteric fracture of left hip Dementia Depression Essential (primary) hypertension Former smoker GERD (gastroesophageal reflux disease) Hearing loss, right Hiatal hernia High cholesterol Hyperlipidemia Injury of head and neck Irritable bowel Migraines Nonobstructive atherosclerosis of coronary artery NSTEMI (non-ST elevated myocardial infarction) (01/06/18) Obesity Psoriatic arthritis Restless legs Sleep apnea Takotsubo syndrome Type 2 diabetes mellitus Home Medications alendronate 70 mg tablet 70 mg PO SA osteoporosis 01/06/18 [History Last Taken Unknown] buspirone 7.5 mg tablet 15 mg PO BID anxiety 01/06/18 [History Last Taken Unknown] fluoxetine 40 mg capsule 40 mg PO BID anxiety 01/06/18 [History Last Taken Unknown] glipizide 5 mg tablet 10 mg PO DAILY antidiabetic 01/06/18 [History Last Taken Unknown] omeprazole 20 mg tablet,delayed release 20 mg PO DAILY GERD 01/06/18 [History Last Taken Unknown] oxybutynin chloride 5 mg tablet 10 mg PO DAILY 01/06/18 [History Last Taken Unknown] carvedilol 3.125 mg tablet 3.125 mg PO BID #90 tabs 07/10/18 [Rx Last Taken Unknown] ergocalciferol (vitamin D2) 1,250 mcg (50,000 unit) capsule 50,000 unit PO SA supplement 02/12/19 [History Last Taken Unknown] lisinopril 20 mg tablet 20 mg PO DAILY #30 tabs 02/15/19 [Rx Last Taken Unknown] fexofenadine 180 mg tablet 180 mg PO DAILY 07/06/22 [History Last Taken Unknown] celecoxib 200 mg capsule 200 mg PO BREAKFAST #0 caps 08/16/22 [Rx Last Taken Unknown] tramadol 50 mg tablet 50 mg PO Q6H PRN PRN Pain Score 6-10 #30 tabs 08/16/22 [Rx Last Taken Unknown] atorvastatin 20 mg tablet 20 mg PO QHS 09/15/22 [History Last Taken Unknown] cyclobenzaprine 5 mg tablet 5 mg PO TID PRN muscle spasm 09/15/22 [History Last Taken Unknown] magnesium hydroxide 400 mg/5 mL oral suspension (Milk of Magnesia) 30 ml PO DAILY PRN constipation 09/15/22 [History Last Taken Unknown] menthol 4 % topical gel (Biofreeze (menthol)) 1 applic topical BID PRN pain 09/15/22 [History Last Taken Unknown] multivitamin with iron-mineral (Super Multiple tablet) 1 tab PO DAILY 09/15/22 [History Last Taken Unknown] polyethylene glycol 3350 17 gram/dose oral powder (Miralax) 17 g PO DAILY PRN constipation 09/15/22 [History Last Taken Unknown] cephalexin 500 mg capsule 500 mg PO TID 7 days #21 caps 04/14/23 [Rx Last Taken Unknown] ondansetron 4 mg disintegrating tablet 4 mg PO TID PRN nausea and vomiting #21 tabs 04/14/23 [Rx Last Taken Unknown] Allergy/AdvReac Type Severity Reaction Status Date / Time morphine Allergy Mild confusion Verified 12/23/22 15:39 codeine Allergy Itching Verified 12/23/22 15:39 fentanyl AdvReac confusion Verified 12/23/22 15:39 naproxen AdvReac Other Verified 12/23/22 15:39 Family History Mother Cancer skin Father Cancer prostate Surgical History History of back surgery History of carpal tunnel release of both wrists History of hysterectomy History of left heart catheterization (01/07/18) Social History Smoking Status: Former smoker how long ago did patient quit smokin years ago alcohol intake: never substance use type: does not use caffeine: Yes Type: carbonated beverages Number of servings: 1 ROS ROS ED Constitutional Constitutional ED: Denies chills or fever(s) Eyes Eyes: Denies change in vision ENT ENT ED: Denies sore throat Cardiovascular Cardiovascular: Denies chest pain, palpitations or racing heartbeat Respiratory/Chest Respiratory/Chest: Denies cough or dyspnea Gastrointestinal Gastrointestinal: Reports abdominal pain, nausea and vomiting; Denies diarrhea Genitourinary Genitourinary ED: Denies dysuria Musculoskeletal Musculoskeletal: Reports myalgias Integumentary Denies rash Neurologic Neurologic: Denies headache(s) Hematologic/Lymphatic Hematologic/Lymphatic: Denies easy bleeding or easy bruising EXAM Physical Exam Const Vital Signs: 04/14/23 01:55 04/14/23 01:59 04/14/23 03:18 Temperature 96.8 F L 96.8 F L Temperature Source Temporal Temporal Pulse Rate 107 H 110 H 103 H Respiratory Rate 16 22 H 22 H Blood Pressure 216/144 H 216/114 H 225/101 H Blood Pressure Mean 168 148 142 Pulse Ox 100 98 93 Oxygen Delivery Method Room Air Room Air 04/14/23 03:22 04/14/23 04:38 04/14/23 03:51 Temperature Temperature Source Pulse Rate 104 H 89 99 Respiratory Rate 24 H 21 H 24 H Blood Pressure 194/114 H 198/99 H 202/109 H Blood Pressure Mean 140 132 140 Pulse Ox 93 92 92 Oxygen Delivery Method Room Air Room Air 04/14/23 05:32 Temperature 98.4 F Temperature Source Pulse Rate 98 Respiratory Rate 16 Blood Pressure 162/99 H Blood Pressure Mean 120 Pulse Ox 94 Oxygen Delivery Method Positive well nourished and well developed General Appearance ED: well developed; Negative for pallor HEENT HEENT Narrative: No tongue or lip swelling no oral lesions no airway edema or compromise No signs of infection noted in the posterior pharynx Eyes PERRL and EOMs intact bilaterally General Eye ED: Negative for scleral icterus Neck supple and no JVD Neck Narrative: No nuchal rigidity or meningeal signs noted Chest Wall palpation of chest normal Resp normal respiratory effort and clear to auscultation bilaterally Resp Narrative: Breath sounds are slight diminished throughout but overall clear to auscultationwithout signs of respiratory distress Cardio regular rhythm Rate: tachycardic and other Other Details: Slightly tachycardic rate with regular rhythm Radial and carotid pulses are equal and symmetric GI non-distended GI Narrative: Abdomen is soft and nondistended with hyperactive bowel sounds. There is mild generalized pain with palpation without voluntary guarding or rigidity. No pulsatile mass or fluid wave Auscultation: hyperactive bowel sounds Palpation: soft Extremity normal to inspection Extremity Narrative: No asymmetric edema no pitting edema negative Homans' sign bilaterally Neuro oriented x3 and CN's II-XII intact bilaterally Sensorium / Orientation: alert Psych Psych Narrative: Patient has a flat affect Skin no rashes or lesions noted General Skin Exam: Negative for jaundice or pallor MDM MDM MDM Narrative Medical decision making narrative: Patient arrived to the ER hypertensive but does have a past medical history of this. Significant other reported that he feels there has been difficulty with her medications since she is returned from the [facility]. Patient also reported it has been roughly 24 hours since her last oxycodone use. Her hypertension and tachycardia and generalized abdominal discomfort with nausea/vomiting and feeling unwell could be related to opioid withdrawal. However there is also concern for infectious process such as UTI acute cholecystitis pancreatitis or diverticulitis as a potential cause of her abdominal pain. Secondary to his basic labs were obtained. As she also is hypertensive there is concern for acute kidney injury or cardiac event. The patient's EKG shows normal sinus rhythm and there is no signs of STEMI or acute ischemia and the patient does not have chest pain therefore do not feel there isany signs of acute coronary event present. Patient's kidney function is not clinically significantly elevated going against DURAN. Her white count however iselevated 19.4 which could be stress response or potentially secondary to an infection and urine does show changes concerning for this with +3 bacteria and 5-10 white cells. Because of the high white count a CT of the abdomen pelvis was obtained which revealed chronic findings without acute changes such as diverticulitis obstruction or abscess or perforation. The patient responded to IV fluids as well as IV pain medication and her symptoms resolved therefore indicating that majority her symptoms are most likely related to opioid withdrawal. However after roughly an hour and a half the patient began to have return of generalized abdominal discomfort with feeling unwell indicating that withdrawal was returning. She was also given labetalol hydralazine and clonidine and this did help improve her blood pressure. However as symptoms began returning her blood pressure also began to elevate. Therefore at this time as patient's showing recurrent bouts of nausea and vomiting with UTI and accelerated hypertension I do not feel she would do well at home and therefore discussed the case with the hospitalist. He agrees to accept the patient at this time for continued care regarding her symptoms. The urine was sent for culture and she was started on Rocephin secondary to the acute UTI but as she isafebrile and not tachycardic and hypertensive not hypotensive she does not qualify for septic criteria at this time. History & Record Review Discussion w/independent historian: Patient and Significant other Lab Data Attestation: I reviewed the patient's lab results. Labs: Laboratory Results - last 24 hr 04/14/23 04/14/23 04/14/23 02:00 03:10 04:35 WBC 19.4 H RBC 5.91 H Hgb 15.9 H Hct 51.3 H MCV 86.8 MCH 26.9 L MCHC 31.0 L RDW Std Deviation 44.0 H RDW Coeff of Gerhard 13.8 Plt Count 366 MPV 9.9 Immature Gran % (Auto) 0.600 Neut % (Auto) 88.6 H Lymph % (Auto) 8.2 L Long % (Auto) 2.2 Eos % (Auto) 0.2 Baso % (Auto) 0.2 Absolute Neuts (auto) 17.2 H Absolute Lymphs (auto) 1.59 Nucleated RBC % 0 Sodium 137 Potassium 4.2 Chloride 101 Carbon Dioxide 24.0 Anion Gap 12 BUN 16 Creatinine 1.05 H Estim Creat Clear Calc 50.55 Est GFR (MDRD) Af Amer 67 Est GFR (MDRD) Non-Af 55 L BUN/Creatinine Ratio 15.2 Glucose 312 H Calcium 10.1 Total Bilirubin 1.20 H Direct Bilirubin 0.17 AST 28 ALT 19 Alkaline Phosphatase 127 H Ammonia 41.0 H Total Protein 9.1 H Albumin 4.4 Globulin 4.7 H Lipase 21 Urine Color Yellow Urine Clarity Sl. Cloudy Urine pH 7.0 Ur Specific [place] 1.010 Urine Protein 500 H Urine Glucose (UA) 1000 H Urine Ketones 50 H Urine Occult Blood 25 H Urine Nitrite Negative Urine Bilirubin Negative Urine Urobilinogen Normal Ur Leukocyte Esterase 25 H Urine RBC 0 SEEN Urine WBC 5-10 SEEN Ur Squamous Epith Cells 0 SEEN Urine Bacteria 3+ Urine Mucus 0 SEEN Radiography Diagnostic Testing: Clinical Impression(s) from Imaging Studies Abdomen/Pelvis CT 04/14/23 04:20 IMPRESSION: 1. Wall thickening of the rectum probably due to proctitis. Rectal mass not completely excluded. Recommend direct observation. 2. Mild fat stranding adjacent to the second portion the duodenum and head of the pancreas. Correlate with laboratory values to evaluate for pancreatitis. 3. Coronary artery disease. 4. Hysterectomy. 5. Left total hip arthroplasty. Components appear well seated. 6. Numerous diverticula without diverticulitis. 7. Subsegmental atelectasis right lung base. 8. Diffuse fatty infiltration of the pancreas. 9. Old bilateral superior and inferior pubic rami fractures. Electronically Signed: Sharita Marcos MD at 4:55 EST , Management Discussion w/another healthcare provider: Hospitalist Discharge Plan Dx/Rx/DC Orders Clinical Impression: Urinary tract infection, Opioid withdrawal, Accelerated hypertension, CKD (chronic kidney disease), stage III, Type 2 diabetes mellitus Disposition Disposition: Acute Care Hospital [facility] What to do if you have Problems For any increased pain, shortness of breath, bleeding, nausea or vomiting, chestpain, or any unexpected problems, contact your Primary Care Provider. Call [facility] ([phone]) or report to the closest Emergency Room. Call 911 if necessary. 04/14/23 0639 <Electronically signed by Marcos Hoffman DO> Cosigner Signature (if applicable): CC: ORESTES Boyer ~ Signed [facility] Work Phone: 1(620) 382-300303-02-2024 History and physical note Author Anuja Brown [facility] April 14, 2023 7:54am Note Date/Time April 14, 2023 7:01 am [facility] Medical Records Department [address] [place] [id number] H&P Exam - Hospitalist 04/14/23614 MR#: [id number] Acct: [id number] Name: DONNA MARSH Rep #:[id number] : 1955 67 From: Anuja Camarillo DO PCP: ORESTES Cano Status:ADM IN Location: [place] [address] HPI - General General Date of Admission: 04/14/23 Date of Service: 04/14/23 Chief Complaint: Nausea, Vomiting and Abdominal Pain. HPI Narrative DONNA MARSH, is a 67 F with a past medical history of essential hypertension, hyperlipidemia, overweight; with BMI of 26.7 this admission, BURKE, DM-2; of unknown control, remote history of tobacco abuse (quit ~1992), CAD; s/p NSTEMI (2017), history of atrial fibrillation, history of Takotsubo's cardiomyopathy, CKD; stage III, early dementia, bipolar disorder, generalized anxiety disorder, history of migraine headaches, history of opioid withdrawal, RLS, IBS, overactive bladder, frequent UTI's, history of hysterectomy, psoriatic arthritis, history of diverticulosis, GERD; with hiatal hernia, osteoporosis; with history of compression fracture and pubic rami fractures, OA; with history of back surgery and recent admission here on 12/23/2022 after she had a mechanical fall followed by a syncopal event with a subsequent Left hip fracturewith ORIF done but she did require ECF for rehabilitation with recent discharge from facility back home who presents to [facility] ER complaining of nausea, vomiting and abdominal pain. Ms. Marsh reports her symptoms began approximately x In the ER her CT scan of the abdomen and pelvis was positive for evidence of proctitis; with possible rectal mass (with direct observation/GI consult recommended) and mild fat stranding of the second portion of the duodenum and the head of the pancreas consistent with pancreatitis complicated by diffuse fatty infiltration of the pancreas with a UA mildly positive for acute cystitis;without hematuria with corresponding laboratory evidence of leukocytosis of 19.4and hyperglycemia of 312 mg/dL present on admission with a highly elevated bloodpressure 216/144 mm Hg present on admission due to suspected hypertensive urgency and she was then admitted to PCU for ongoing care for a stay that is expected to be greater than 48 hours. [facility] Medical History Anxiety Atrial fibrillation Back pain due to injury Bipolar disorder Closed intertrochanteric fracture of left hip Dementia Depression Essential (primary) hypertension Former smoker GERD (gastroesophageal reflux disease) Hearing loss, right Hiatal hernia High cholesterol Hyperlipidemia Injury of head and neck Irritable bowel Migraines Nonobstructive atherosclerosis of coronary artery NSTEMI (non-ST elevated myocardial infarction) (01/06/18) Obesity Psoriatic arthritis Restless legs Sleep apnea Takotsubo syndrome Type 2 diabetes mellitus Home Medications alendronate 70 mg tablet 70 mg PO SA osteoporosis 01/06/18 [History Last Taken Unknown] buspirone 7.5 mg tablet 15 mg PO BID anxiety 01/06/18 [History Last Taken Unknown] fluoxetine 40 mg capsule 40 mg PO BID anxiety 01/06/18 [History Last Taken Unknown] glipizide 5 mg tablet 10 mg PO DAILY antidiabetic 01/06/18 [History Last Taken Unknown] omeprazole 20 mg tablet,delayed release 20 mg PO DAILY GERD 01/06/18 [History Last Taken Unknown] oxybutynin chloride 5 mg tablet 10 mg PO DAILY 01/06/18 [History Last Taken Unknown] carvedilol 3.125 mg tablet 3.125 mg PO BID #90 tabs 07/10/18 [Rx Last Taken Unknown] ergocalciferol (vitamin D2) 1,250 mcg (50,000 unit) capsule 50,000 unit PO SA supplement 02/12/19 [History Last Taken Unknown] lisinopril 20 mg tablet 20 mg PO DAILY #30 tabs 02/15/19 [Rx Last Taken Unknown] fexofenadine 180 mg tablet 180 mg PO DAILY 07/06/22 [History Last Taken Unknown] celecoxib 200 mg capsule 200 mg PO BREAKFAST #0 caps 08/16/22 [Rx Last Taken Unknown] tramadol 50 mg tablet 50 mg PO Q6H PRN PRN Pain Score 6-10 #30 tabs 08/16/22 [Rx Last Taken Unknown] atorvastatin 20 mg tablet 20 mg PO QHS 09/15/22 [History Last Taken Unknown] cyclobenzaprine 5 mg tablet 5 mg PO TID PRN muscle spasm 09/15/22 [History Last Taken Unknown] magnesium hydroxide 400 mg/5 mL oral suspension (Milk of Magnesia) 30 ml PO DAILY PRN constipation 09/15/22 [History Last Taken Unknown] menthol 4 % topical gel (Biofreeze (menthol)) 1 applic topical BID PRN pain 09/15/22 [History Last Taken Unknown] multivitamin with iron-mineral (Super Multiple tablet) 1 tab PO DAILY 09/15/22 [History Last Taken Unknown] polyethylene glycol 3350 17 gram/dose oral powder (Miralax) 17 g PO DAILY PRN constipation 09/15/22 [History Last Taken Unknown] cephalexin 500 mg capsule 500 mg PO TID 7 days #21 caps 04/14/23 [Rx Last Taken Unknown] ondansetron 4 mg disintegrating tablet 4 mg PO TID PRN nausea and vomiting #21 tabs 04/14/23 [Rx Last Taken Unknown] Allergy/AdvReac Type Severity Reaction Status Date / Time morphine Allergy Mild confusion Verified 12/23/22 15:39 codeine Allergy Itching Verified 12/23/22 15:39 fentanyl AdvReac confusion Verified 12/23/22 15:39 naproxen AdvReac Other Verified 12/23/22 15:39 Family History Mother Cancer skin Father Cancer prostate Surgical History History of back surgery History of carpal tunnel release of both wrists History of hysterectomy History of left heart catheterization (01/07/18) Social History Smoking Status: Former smoker how long ago did patient quit smokin years ago alcohol intake: never substance use type: does not use caffeine: Yes Type: carbonated beverages Number of servings: 1 ROS ROS Narrative Review of systems: Vital Signs Vital Signs Vital Signs: 04/14/23 01:55 04/14/23 01:59 04/14/23 03:18 Temperature 96.8 F L 96.8 F L Temperature Source Temporal Temporal Pulse Rate 107 H 110 H 103 H Respiratory Rate 16 22 H 22 H Blood Pressure 216/144 H 216/114 H 225/101 H Blood Pressure Mean 168 148 142 Pulse Ox 100 98 93 Oxygen Delivery Method Room Air Room Air 04/14/23 03:22 04/14/23 04:38 04/14/23 03:51 Temperature Temperature Source Pulse Rate 104 H 89 99 Respiratory Rate 24 H 21 H 24 H Blood Pressure 194/114 H 198/99 H 202/109 H Blood Pressure Mean 140 132 140 Pulse Ox 93 92 92 Oxygen Delivery Method Room Air Room Air 04/14/23 05:32 Temperature 98.4 F Temperature Source Pulse Rate 98 Respiratory Rate 16 Blood Pressure 162/99 H Blood Pressure Mean 120 Pulse Ox 94 Oxygen Delivery Method Weight Weight: 160 lb 7.944 oz Body Mass Index (BMI) 26.6 Results Lab / Micro Data 04/14/23 02:00 04/14/23 02:00 Labs: Laboratory Results - last 24 hr 04/14/23 02:00: WBC 19.4 H, RBC 5.91 H, Hgb 15.9 H, Hct 51.3 H, MCV 86.8, MCH 26.9 L, MCHC 31.0 L, RDW Std Deviation 44.0 H, RDW Coeff of Gerhard 13.8, Plt Count 366, MPV 9.9, Immature Gran % (Auto) 0.600, Neut % (Auto) 88.6 H, Lymph % (Auto)8.2 L, Long % (Auto) 2.2, Eos % (Auto) 0.2, Baso % (Auto) 0.2, Absolute Neuts (auto) 17.2 H, Absolute Lymphs (auto) 1.59, Nucleated RBC % 0, Sodium 137, Potassium 4.2, Chloride 101, Carbon Dioxide 24.0, Anion Gap 12, BUN 16, Creatinine 1.05 H, Estim Creat Clear Calc 50.55, Est GFR (MDRD) Af Amer 67, Est GFR (MDRD) Non-Af 55 L, BUN/Creatinine Ratio 15.2, Glucose 312 H, Calcium 10.1, Total Bilirubin 1.20 H, Direct Bilirubin 0.17, AST 28, ALT 19, Alkaline Phosphatase 127 H, Total Protein 9.1 H, Albumin 4.4, Globulin 4.7 H, Lipase 21 04/14/23 03:10: Ammonia 41.0 H 04/14/23 04:35: Urine Color Yellow, Urine Clarity Sl. Cloudy, Urine pH 7.0, Ur Specific [place] 1.010, Urine Protein 500 H, Urine Glucose (UA) 1000 H, Urine Ketones 50 H, Urine Occult Blood 25 H, Urine Nitrite Negative, Urine Bilirubin Negative, Urine Urobilinogen Normal, Ur Leukocyte Esterase 25 H, Urine RBC 0 SEEN, Urine WBC 5-10 SEEN, Ur Squamous Epith Cells 0 SEEN, Urine Bacteria 3+, Urine Mucus 0 SEEN Imaging Radiology Impression Abdomen/Pelvis CT 04/14/23 04:20 IMPRESSION: 1. Wall thickening of the rectum probably due to proctitis. Rectal mass not completely excluded. Recommend direct observation. 2. Mild fat stranding adjacent to the second portion the duodenum and head of the pancreas. Correlate with laboratory values to evaluate for pancreatitis. 3. Coronary artery disease. 4. Hysterectomy. 5. Left total hip arthroplasty. Components appear well seated. 6. Numerous diverticula without diverticulitis. 7. Subsegmental atelectasis right lung base. 8. Diffuse fatty infiltration of the pancreas. 9. Old bilateral superior and inferior pubic rami fractures. Electronically Signed: Sharita Marcos MD at 4:55 EST , Assessment & Plan Assessment/Plan (1) Proctitis: (2) Rectal mass: (3) Acute cystitis without hematuria: (4) Sepsis: QUALIFIERS: Sepsis type: sepsis due to unspecified organism Sepsis acute organ dysfunction status: without acute organ dysfunction Qualified Code(s): A41.9 - Sepsis, unspecified organism (5) Pancreatitis: QUALIFIERS: Acute pancreatitis complication: unspecified Chronicity: acute Pancreatitis type: idiopathic Qualified Code(s): K85.00 - Idiopathic acute pancreatitis without necrosis or infection (6) Hypertensive urgency: PLAN: Plan 1. CT scan of the abdomen and pelvis was positive for evidence of proctitis; with possible rectal mass (with direct observation/GI consult recommended) with leukocytosis of 19.4 present on admission and clinical evidence of Sepsis with patient dropping her blood pressures into the 70 mm Hg systolic range around 7:00 AM - Admit to ICU. Continue broad-spectrum antibiotics and await culture and sensitivity data. Give Tylenol prn [id number] (level 1-5/10) pain or fever. Give Dilaudid IV prn for severe (level 6-10/10) pain. Second lactate ordered as per Sepsis protocol. Finally, we will consult Dr. Huagn of gastroenterology to see this patient on-rounds in the AM for further recommendations regarding possible endoscopy with help appreciated in advance. 2. Acute cystitis; without hematuria compounding #1 - Continue IV Zosyn also initiated for #1 and await culture and sensitivity data. 3. Acute Pancreatitis with fatty infiltration of the pancreas and mild fat stranding of the second portion of the duodenum and the head of the pancreas withfrequent nausea and vomiting complicating #1 & #2 - Keep NPO except for sips, ice chips and medications. Check daily lipase. Check Lipid Profile to evaluatefor possible hypertriglyceridemia. Give Zofran IV prn nausea plus give prn IM Phenergan for breakthrough nausea and vomiting. 4. Hypertensive urgency with blood pressure of 216/144 mm Hg present on admission - Resolved with patient given antihypertensives and pain medications that may have contributed to precipitous decrease in blood pressure. Hold scheduled antihypertensives in light of #1. 5. DM-2; uncontrolled with hyperglycemia of 312 mg/dL present on admission - NPO except for sips, ice chips and medications for now. Check FSBS q. 6 hours plus lowest intensity SS. Check HgbA1c. 6. Recent admission here on 12/23/2022 after she had a mechanical fall followedby a syncopal event with a subsequent Left hip fracture with ORIF done but she did require ECF for rehabilitation with recent discharge from facility [facility]iding the back drop for #1 - #5 - Noted with patient having spent ~3 months at [facility]. PT/OT and case management to see patient on-rounds in AM forfurther recommendations with help appreciated in advance. 7. Early dementia with bipolar disorder and generalized anxiety disorder - Noted. Continue supportive care and monitor for improvement. 8. Hyperlipidemia - Resume statin and check lipid profile. 9. Overweight; with BMI of 26.7 this admission with BURKE - Weight loss will be recommended. 10. Remote history of tobacco abuse (quit ~1992) - Noted. 11. CAD; s/p NSTEMI (2018) - Stable. Serialize troponin. 12. History of atrial fibrillation - Stable. 13. History of Takotsubo's cardiomyopathy - Stable. 14. CKD; stage III - Stable. 15. History of migraine headaches - Noted. 16. History of opioid withdrawal - Noted. 17. RLS - Continue current treatment. 18. IBS - Stable. 19. Overactive bladder - Current regimen to be continued. 20. History of hysterectomy - Noted. 21. Psoriatic arthritis - Stable. 22. History of diverticulosis - Stable. 23. GERD; with hiatal hernia - Continue PPI IV. 24. Osteoporosis; with history of compression fracture and pubic rami fractures- Noted. 25. OA; with history of back surgery - Noted. 26. DVT prophylaxis - Lovenox 40 mg sq daily plus SCD's. Total time: Approximately 75 minutes. Charges/Coding Visit Charges Inpatient E&M: 28832 Init Hosp L3 04/14/23 0749 <Electronically signed by Anuja Noel DO> Cosigner Signature (if applicable): CC: ORESTES Boyer; Dr. Anuja Noel DO~ Signed ADDENDUM by Dr. Anuja Noel DO on 04/14/23 at 0754 Addendum Full ROS could not be done due to patient's dementia with limited ability to understand and respond to questions. Patient's was at bedside to help augment history. 04/14/23 0754<Electronically signed by Anuja Noel DO> Cosigner Signature (if applicable): cc: ORESTES Boyer; Dr. Anuja Noel DO ~* Signed [facility] Work Phone: 1(382) 656-164003-02-2024 Discharge summary Author Marcos Hoffman [facility] April 14, 2023 7:48am Note Date/Time April 14, 2023 5:15 am [facility] Medical Records Department [address] [place] [address] Emergency Department Summary 04/14/23 MR#: [id number] Acct: [id number] Name: DONNA MARSH Rep #:[id number] : 1955 67 From: Marcos Hoffman DO PCP: ORESTES Cano Status:ADM IN Location: [place] [address]- [id number] ADDENDUM by Marcos Hoffman DO on 04/14/23 at 0748 While the patient was waiting for her admitted bed to become available she spontaneously dropped her blood pressure which had been reading high for her entire ER stay down to a hypotensive value of approximately 80/60. The blood pressure was checked multiple times and also performed on each arm with similar readings. She was started on 30 ml/kg fluid resuscitation which is approximately 2 L and with this her blood pressure improved to 123/63. The hospitalist was notified of the sudden hypotension as well as the improvement with fluids and recommends that her bed be changed to ICU status. 04/14/23 0748<Electronically signed by Marcos Hoffman DO> Cosigner Signature (if applicable): cc: [employer] Rudy Boyer ~* Signed HPI History of Present Illness Chief Complaint: Nausea/Vomiting/Diarrhea Informant: patient and spouse/S.O. Narrative Narrative: Patient is a 67-year-old female with past medical history of hypertension hyperlipidemia diabetes chronic kidney disease and previous hip fracture requiring ORIF. Patient and spouse state that after the fracture and her hospital stay she was [facility] to the [facility] where she has been since approximately . They state that she is only been home for the last week or so and that there is been difficulty in having her continue the medications which she was receiving at the [facility]. Patient states that inthe last few hours she developed generalized abdominal discomfort with bouts of nausea and vomiting and overall sense of feeling unwell. She also states that is been approximate 24 hours since her last oxycodone use which she also reportsshe was taking daily at the [facility]. Otherwise she denies any fevers or chills or chest pain or shortness of breath. [facility] Medical History Anxiety Atrial fibrillation Back pain due to injury Bipolar disorder Closed intertrochanteric fracture of left hip Dementia Depression Essential (primary) hypertension Former smoker GERD (gastroesophageal reflux disease) Hearing loss, right Hiatal hernia High cholesterol Hyperlipidemia Injury of head and neck Irritable bowel Migraines Nonobstructive atherosclerosis of coronary artery NSTEMI (non-ST elevated myocardial infarction) (01/06/18) Obesity Psoriatic arthritis Restless legs Sleep apnea Takotsubo syndrome Type 2 diabetes mellitus Home Medications alendronate 70 mg tablet 70 mg PO SA osteoporosis 01/06/18 [History Last Taken Unknown] buspirone 7.5 mg tablet 15 mg PO BID anxiety 01/06/18 [History Last Taken Unknown] fluoxetine 40 mg capsule 40 mg PO BID anxiety 01/06/18 [History Last Taken Unknown] glipizide 5 mg tablet 10 mg PO DAILY antidiabetic 01/06/18 [History Last Taken Unknown] omeprazole 20 mg tablet,delayed release 20 mg PO DAILY GERD 01/06/18 [History Last Taken Unknown] oxybutynin chloride 5 mg tablet 10 mg PO DAILY 01/06/18 [History Last Taken Unknown] carvedilol 3.125 mg tablet 3.125 mg PO BID #90 tabs 07/10/18 [Rx Last Taken Unknown] ergocalciferol (vitamin D2) 1,250 mcg (50,000 unit) capsule 50,000 unit PO SA supplement 02/12/19 [History Last Taken Unknown] lisinopril 20 mg tablet 20 mg PO DAILY #30 tabs 02/15/19 [Rx Last Taken Unknown] fexofenadine 180 mg tablet 180 mg PO DAILY 07/06/22 [History Last Taken Unknown] celecoxib 200 mg capsule 200 mg PO BREAKFAST #0 caps 08/16/22 [Rx Last Taken Unknown] tramadol 50 mg tablet 50 mg PO Q6H PRN PRN Pain Score 6-10 #30 tabs 08/16/22 [Rx Last Taken Unknown] atorvastatin 20 mg tablet 20 mg PO QHS 09/15/22 [History Last Taken Unknown] cyclobenzaprine 5 mg tablet 5 mg PO TID PRN muscle spasm 09/15/22 [History Last Taken Unknown] magnesium hydroxide 400 mg/5 mL oral suspension (Milk of Magnesia) 30 ml PO DAILY PRN constipation 09/15/22 [History Last Taken Unknown] menthol 4 % topical gel (Biofreeze (menthol)) 1 applic topical BID PRN pain 09/15/22 [History Last Taken Unknown] multivitamin with iron-mineral (Super Multiple tablet) 1 tab PO DAILY 09/15/22 [History Last Taken Unknown] polyethylene glycol 3350 17 gram/dose oral powder (Miralax) 17 g PO DAILY PRN constipation 09/15/22 [History Last Taken Unknown] cephalexin 500 mg capsule 500 mg PO TID 7 days #21 caps 04/14/23 [Rx Last Taken Unknown] ondansetron 4 mg disintegrating tablet 4 mg PO TID PRN nausea and vomiting #21 tabs 04/14/23 [Rx Last Taken Unknown] Allergy/AdvReac Type Severity Reaction Status Date / Time morphine Allergy Mild confusion Verified 12/23/22 15:39 codeine Allergy Itching Verified 12/23/22 15:39 fentanyl AdvReac confusion Verified 12/23/22 15:39 naproxen AdvReac Other Verified 12/23/22 15:39 Family History Mother Cancer skin Father Cancer prostate Surgical History History of back surgery History of carpal tunnel release of both wrists History of hysterectomy History of left heart catheterization (01/07/18) Social History Smoking Status: Former smoker how long ago did patient quit smokin years ago alcohol intake: never substance use type: does not use caffeine: Yes Type: carbonated beverages Number of servings: 1 ROS ROS ED Constitutional Constitutional ED: Denies chills or fever(s) Eyes Eyes: Denies change in vision ENT ENT ED: Denies sore throat Cardiovascular Cardiovascular: Denies chest pain, palpitations or racing heartbeat Respiratory/Chest Respiratory/Chest: Denies cough or dyspnea Gastrointestinal Gastrointestinal: Reports abdominal pain, nausea and vomiting; Denies diarrhea Genitourinary Genitourinary ED: Denies dysuria Musculoskeletal Musculoskeletal: Reports myalgias Integumentary Denies rash Neurologic Neurologic: Denies headache(s) Hematologic/Lymphatic Hematologic/Lymphatic: Denies easy bleeding or easy bruising EXAM Physical Exam Const Vital Signs: 04/14/23 01:55 04/14/23 01:59 04/14/23 03:18 Temperature 96.8 F L 96.8 F L Temperature Source Temporal Temporal Pulse Rate 107 H 110 H 103 H Respiratory Rate 16 22 H 22 H Blood Pressure 216/144 H 216/114 H 225/101 H Blood Pressure Mean 168 148 142 Pulse Ox 100 98 93 Oxygen Delivery Method Room Air Room Air 04/14/23 03:22 04/14/23 04:38 04/14/23 03:51 Temperature Temperature Source Pulse Rate 104 H 89 99 Respiratory Rate 24 H 21 H 24 H Blood Pressure 194/114 H 198/99 H 202/109 H Blood Pressure Mean 140 132 140 Pulse Ox 93 92 92 Oxygen Delivery Method Room Air Room Air 04/14/23 05:32 Temperature 98.4 F Temperature Source Pulse Rate 98 Respiratory Rate 16 Blood Pressure 162/99 H Blood Pressure Mean 120 Pulse Ox 94 Oxygen Delivery Method Positive well nourished and well developed General Appearance ED: well developed; Negative for pallor HEENT HEENT Narrative: No tongue or lip swelling no oral lesions no airway edema or compromise No signs of infection noted in the posterior pharynx Eyes PERRL and EOMs intact bilaterally General Eye ED: Negative for scleral icterus Neck supple and no JVD Neck Narrative: No nuchal rigidity or meningeal signs noted Chest Wall palpation of chest normal Resp normal respiratory effort and clear to auscultation bilaterally Resp Narrative: Breath sounds are slight diminished throughout but overall clear to auscultationwithout signs of respiratory distress Cardio regular rhythm Rate: tachycardic and other Other Details: Slightly tachycardic rate with regular rhythm Radial and carotid pulses are equal and symmetric GI non-distended GI Narrative: Abdomen is soft and nondistended with hyperactive bowel sounds. There is mild generalized pain with palpation without voluntary guarding or rigidity. No pulsatile mass or fluid wave Auscultation: hyperactive bowel sounds Palpation: soft Extremity normal to inspection Extremity Narrative: No asymmetric edema no pitting edema negative Homans' sign bilaterally Neuro oriented x3 and CN's II-XII intact bilaterally Sensorium / Orientation: alert Psych Psych Narrative: Patient has a flat affect Skin no rashes or lesions noted General Skin Exam: Negative for jaundice or pallor MDM MDM MDM Narrative Medical decision making narrative: Patient arrived to the ER hypertensive but does have a past medical history of this. Significant other reported that he feels there has been difficulty with her medications since she is returned from the [facility]. Patient also reported it has been roughly 24 hours since her last oxycodone use. Her hypertension and tachycardia and generalized abdominal discomfort with nausea/vomiting and feeling unwell could be related to opioid withdrawal. However there is also concern for infectious process such as UTI acute cholecystitis pancreatitis or diverticulitis as a potential cause of her abdominal pain. Secondary to his basic labs were obtained. As she also is hypertensive there is concern for acute kidney injury or cardiac event. The patient's EKG shows normal sinus rhythm and there is no signs of STEMI or acute ischemia and the patient does not have chest pain therefore do not feel there isany signs of acute coronary event present. Patient's kidney function is not clinically significantly elevated going against DURAN. Her white count however iselevated 19.4 which could be stress response or potentially secondary to an infection and urine does show changes concerning for this with +3 bacteria and 5-10 white cells. Because of the high white count a CT of the abdomen pelvis was obtained which revealed chronic findings without acute changes such as diverticulitis obstruction or abscess or perforation. The patient responded to IV fluids as well as IV pain medication and her symptoms resolved therefore indicating that majority her symptoms are most likely related to opioid withdrawal. However after roughly an hour and a half the patient began to have return of generalized abdominal discomfort with feeling unwell indicating that withdrawal was returning. She was also given labetalol hydralazine and clonidine and this did help improve her blood pressure. However as symptoms began returning her blood pressure also began to elevate. Therefore at this time as patient's showing recurrent bouts of nausea and vomiting with UTI and accelerated hypertension I do not feel she would do well at home and therefore discussed the case with the hospitalist. He agrees to accept the patient at this time for continued care regarding her symptoms. The urine was sent for culture and she was started on Rocephin secondary to the acute UTI but as she isafebrile and not tachycardic and hypertensive not hypotensive she does not qualify for septic criteria at this time. History & Record Review Discussion w/independent historian: Patient and Significant other Lab Data Attestation: I reviewed the patient's lab results. Labs: Laboratory Results - last 24 hr 04/14/23 04/14/23 04/14/23 02:00 03:10 04:35 WBC 19.4 H RBC 5.91 H Hgb 15.9 H Hct 51.3 H MCV 86.8 MCH 26.9 L MCHC 31.0 L RDW Std Deviation 44.0 H RDW Coeff of Gerhard 13.8 Plt Count 366 MPV 9.9 Immature Gran % (Auto) 0.600 Neut % (Auto) 88.6 H Lymph % (Auto) 8.2 L Long % (Auto) 2.2 Eos % (Auto) 0.2 Baso % (Auto) 0.2 Absolute Neuts (auto) 17.2 H Absolute Lymphs (auto) 1.59 Nucleated RBC % 0 Sodium 137 Potassium 4.2 Chloride 101 Carbon Dioxide 24.0 Anion Gap 12 BUN 16 Creatinine 1.05 H Estim Creat Clear Calc 50.55 Est GFR (MDRD) Af Amer 67 Est GFR (MDRD) Non-Af 55 L BUN/Creatinine Ratio 15.2 Glucose 312 H Calcium 10.1 Total Bilirubin 1.20 H Direct Bilirubin 0.17 AST 28 ALT 19 Alkaline Phosphatase 127 H Ammonia 41.0 H Total Protein 9.1 H Albumin 4.4 Globulin 4.7 H Lipase 21 Urine Color Yellow Urine Clarity Sl. Cloudy Urine pH 7.0 Ur Specific [place] 1.010 Urine Protein 500 H Urine Glucose (UA) 1000 H Urine Ketones 50 H Urine Occult Blood 25 H Urine Nitrite Negative Urine Bilirubin Negative Urine Urobilinogen Normal Ur Leukocyte Esterase 25 H Urine RBC 0 SEEN Urine WBC 5-10 SEEN Ur Squamous Epith Cells 0 SEEN Urine Bacteria 3+ Urine Mucus 0 SEEN Radiography Diagnostic Testing: Clinical Impression(s) from Imaging Studies Abdomen/Pelvis CT 04/14/23 04:20 IMPRESSION: 1. Wall thickening of the rectum probably due to proctitis. Rectal mass not completely excluded. Recommend direct observation. 2. Mild fat stranding adjacent to the second portion the duodenum and head of the pancreas. Correlate with laboratory values to evaluate for pancreatitis. 3. Coronary artery disease. 4. Hysterectomy. 5. Left total hip arthroplasty. Components appear well seated. 6. Numerous diverticula without diverticulitis. 7. Subsegmental atelectasis right lung base. 8. Diffuse fatty infiltration of the pancreas. 9. Old bilateral superior and inferior pubic rami fractures. Electronically Signed: Sharita Marcos MD at 4:55 EST , Management Discussion w/another healthcare provider: Hospitalist Discharge Plan Dx/Rx/DC Orders Clinical Impression: Urinary tract infection, Opioid withdrawal, Accelerated hypertension, CKD (chronic kidney disease), stage III, Type 2 diabetes mellitus Disposition Disposition: Acute Care Hospital [facility] What to do if you have Problems For any increased pain, shortness of breath, bleeding, nausea or vomiting, chestpain, or any unexpected problems, contact your Primary Care Provider. Call [facility] ([phone]) or report to the closest Emergency Room. Call 911 if necessary. 04/14/23 0639 <Electronically signed by Marcos Hoffman DO> Cosigner Signature (if applicable): CC: ORESTES Boyer ~ Signed [facility] Work Phone: 1(265) 755-477803-01-2024 NoteDocuments all printed, waiting for referral to be signed by Ty on Sunday and then I will fax everything back to [facility]03-01-2024 Telephone encounter Note* Telephone Encounter - Christiane Victoria - 04/13/2023 9:08 AM EST Documents all printed, waiting for referral to be signed by Ty on Sunday and then I will fax everything back to them [facility]03-01-2024 Hospital Discharge instructions Additional Instructions Your workup shows a urinary tract infection and therefore take the Keflex/cephalexin as directed. Also your history and workup indicate that some of your symptoms are related to opioid withdrawal as you have not taken your oxycodone in the last 24 hours. Therefore please go back to taking it as you were given in the [facility] and use Zofran for any nausea or vomiting sensation. If you have any further concerns or worsening of symptoms please [facility] Work Phone: 1(286) 769-810902-29-2024 Telephone encounter Note* Telephone Encounter - Danyelle Ewing - 04/12/2023 3:23 PM EST Name of caller: [facility] Contact phone number: [phone] Provider: Beth Lozano Practice: Ortho Chief Complaint/Reason for Call: [facility] called stating they got thereferral for the pt, but they also require the most recent OV notes Has to be within the last 90 days), a written and signed order from the dr, the pt's medication list, and a demographic sheet. Theyneed it faxed to [phone]. Please advise. Best time of day caller can be reached: Any Patient advised that office/PCP has 24-48 business hours to return their call: No [facility]irquu14-67-3679 NoteAddended by: YIFAN LOZANO on: 04/12/2023 02:34 PM Modules accepted: W-21[facility]02-27-2024 History of Present illness Narrative* Nicola Adhikari MD - 04/10/2023 2:50 PM EST Subjective: Donna is approximatley 3 months post op from right Intertan for proximal femur fracture on 12/27/22.Overall pain is moderate. She denies new numbness or tingling since surgery. She denies other new complaints. Assistive device(s) currently used: walker and wheelchair. Review of Systems Objective: Ht 5' 4 (1.626 m) Wt 178 lb (80.7 kg) BMI 30.55 kg/m She presents in wheelchair. No ROM was performed. XRAYS: 2v right femur show the Intertan nail remains in good position.The fracture is well-aligned and remains unchanged from prior films. The fracture is still visualized. There has been some shortening. Assessment 1. Closed displaced intertrochanteric fracture of right femur with routine healing, subsequent encounter Plan Orders Placed This [facility] will remain WBAT and focus on continued aggressive ROM of hip and knee, quad and abductor strengthening and edema control. We discussed the natural history of hip fractures and expectations for recovery and prognosis as well as the increased dependence on assistive devices. Follow up in about 6 weeks (around 05/22/2023). 2v femur Electronically signed by Nicola Adhikari M.D.04/10/2023 at 3:17 PM. documented in this [facility]02-27-2024 History of Present illness Narrative* Nicola Adhikari MD - 04/10/2023 2:50 PM EST Subjective: Donna is approximatley 3 months post op from right Intertan for proximal femur fracture on 12/27/22.Overall pain is moderate. She denies new numbness or tingling since surgery. She denies other new complaints. Assistive device(s) currently used: walker and wheelchair. Review of Systems Objective: Ht 5' 4 (1.626 m) Wt 178 lb (80.7 kg) BMI 30.55 kg/m She presents in wheelchair. No ROM was performed. XRAYS: 2v right femur show the Intertan nail remains in good position.The fracture is well-aligned and remains unchanged from prior films. The fracture is still visualized. There has been some shortening. Assessment 1. Closed displaced intertrochanteric fracture of right femur with routine healing, subsequent encounter Plan Orders Placed This Encounter Procedures [facility] Donna will remain WBAT and focus on continued aggressive ROM of hip and knee, quad and abductor strengthening and edema control. We discussed the natural history of hip fractures and expectations for recovery and prognosis as well as the increased dependence on assistive devices. Follow up in about 6 weeks (around 05/22/2023). 2v femur Electronically signed by Nicola Adhikari M.D.04/10/2023 at 3:17 PM. documented in this [facility]02-27-2024 Miscellaneous Notes* Addendum Note - Yifan Lozano PA-C - 04/10/2023 2:50 PM ESTAddended by: YIFAN LOZANO on: 04/12/2023 02:34 PM Modules accepted: Orders documented in this [facility]02-27-2024 Note* Addendum Note - Yifan Lozano PA-C - 04/10/2023 2:50 PM ESTAddended by: YIFAN LOZANO on: 04/12/2023 02:34 PM Modules accepted: Orders [facility] Note* Addendum Note - Yifan Lozano PA-C - 04/10/2023 2:50 PM ESTAddended by: YIFAN LOZANO on: 04/12/2023 02:34 PM Modules accepted: Orders [facility] HospitalFoxetg84-51-9297 Telephone encounter Note* Telephone Encounter - Christiane Victoria - 01/22/2023 11:40 AM EST Called [facility] ([phone]) and spoke with Paula patient's nurse, to pass along updated orders per Ty. Imaging due: 03/29/2023 [id number] Miscellaneous Notes* Telephone Encounter - Christiane Victoria - 01/22/2023 11:40 AM EST Called [facility] ([phone]) and spoke with Paula patient's nurse, to pass along updated orders per Ty. Imaging due: 03/29/2023 * Telephone Encounter - Yifan Lozano PA-C - 01/19/2023 2:10 PM EST Films reviewed. Continue WBAT RLE. Continue hip and knee ROM. Will need repeat 2v right femur at the 3 month post op john. * Telephone Encounter - RT Shlomo (R) - 01/19/2023 12:56 PM EST Images from the original note were not included. Xrays of right femur taken on 01/10/23: * Telephone Encounter - Christiane Victoria - 01/03/2023 1:35 PM EST Called [facility] ([phone]) and spoke with Vanesa, patient's nurse. Passed along ordersper Ty. She was agreeable with this plan of not bringing the patient into the office unless specifically requested. Imaging due: 01/10/23 * Telephone Encounter - Yifan Lozano PA-C - 01/02/2023 2:01 PM EST s/p Intertan nailing of right hip on 12/27. Discharged to [facility]. Will need 2v right femur 2 weeks postop. Okay for facility films. Sutures/yasmeen can be removed atthat time as long as incisions are healing well. If there are any concerns regarding incisions, please have them send pictures for review prior to removal and wait for additional instructions. * Telephone Encounter - Paula Domínguez - 01/02/2023 1:53 PM EST Name of caller: Stephanie Contact phone number: [phone] Relationship to Patient: [facility] Provider: Dr. Adhikari Practice: Ortho Chief Complaint/Reason for Call: Please call facility with xr orders and PO orders. Thank you Best time of day caller can be reached: any Patient advised that office/PCP has 24-48 business hours to return their call: No documented in this [facility]12-08-2023 Telephone encounter Note* Telephone Encounter - Yifan Lozano PA-C - 01/19/2023 2:10 PM EST Films reviewed. Continue WBAT RLE. Continue hip and knee ROM. Will need repeat 2v right femur at the 3 month post op john. [employer] Phone: 1(454) 804-533912-08-2023 Miscellaneous Notes* Telephone Encounter - Yifan Lozano PA-C - 01/19/2023 2:10 PM EST Films reviewed. Continue WBAT RLE. Continue hip and knee ROM. Will need repeat 2v right femur at the 3 month post op john. * Telephone Encounter - RT Shlomo (R) - 01/19/2023 12:56 PM EST Images from the original note were not included. Xrays of right femur taken on 01/10/23: * Telephone Encounter - Christiane Victoria - 01/03/2023 1:35 PM EST Called [facility] ([phone]) and spoke with Vanesa, patient's nurse. Passed along ordersper Ty. She was agreeable with this plan of not bringing the patient into the office unless specifically requested. Imaging due: 01/10/23 * Telephone Encounter - Yifan Lozano PA-C - 01/02/2023 2:01 PM EST s/p Intertan nailing of right hip on 12/27. Discharged to [facility]. Will need 2v right femur 2 weeks postop. Okay for facility films. Sutures/yasmeen can be removed atthat time as long as incisions are healing well. If there are any concerns regarding incisions, please have them send pictures for review prior to removal and wait for additional instructions. * Telephone Encounter - Paula Domínguez - 01/02/2023 1:53 PM EST Name of caller: Stephanie Contact phone number: [phone] Relationship to Patient: [facility] Provider: Dr. Adhikari Practice: Ortho Chief Complaint/Reason for Call: Please call facility with xr orders and PO orders. Thank you Best time of day caller can be reached: any Patient advised that office/PCP has 24-48 business hours to return their call: No documented in this encounterSAultman Orrville HospitalEfzfun34-06-0225 Telephone encounter Note* Telephone Encounter - RT Shlomo (R) - 01/19/2023 12:56 PM EST Images from the original note were not included. Xrays of right femur taken on 01/10/23: [facility] [id number] Telephone encounter Note* Telephone Encounter - Christiane Victoria - 01/03/2023 1:35 PM EST Called [facility] ([phone]) and spoke with Vanesa, patient's nurse. Passed along ordersper Ty. She was agreeable with this plan of not bringing the patient into the office unless specifically requested. Imaging due: 01/10/23 [facility] HospitalNndwjf60-49-4713 Telephone encounter Note* Telephone Encounter - Yifan Lozano PA-C - 01/02/2023 2:01 PM EST s/p Intertan nailing of right hip on 12/27. Discharged to [facility]. Will need 2v right femur 2 weeks postop. Okay for facility films. Sutures/yasmeen can be removed atthat time as long as incisions are healing well. If there are any concerns regarding incisions, please have them send pictures for review prior to removal and wait for additional instructions. [facility] HospitalJjneon13-40-9328 Telephone encounter Note* Telephone Encounter - Paula Sang - 01/02/2023 1:53 PM EST Name of caller: Stephanie Contact phone number: [phone] Relationship to Patient: [facility] Provider: Dr. Adhikari Practice: Ortho Chief Complaint/Reason for Call: Please call facility with xr orders and PO orders. Thank you Best time of day caller can be reached: any Patient advised that office/PCP has 24-48 business hours to return their call: No [facility] HospitalRlecnz84-42-8723 [facility]11-20-2023 Nurse Note* Nelson Armas RN - 01/01/2023 9:58 PM EST Patient picked up 2154 transported to [facility]. IV L forearm and R forearm removed. * Laz Beasley RN - 12/23/2022 10:04 PM EST Patient arrived from OR, Dr. Rodriguez in to speak with the patient regarding pelvic embolization, consent obtained. Patient was placed supine on exam table prepped and draped in sterile fashion. Telemetry monitors placed. Patient tolerated procedure well. Transfer to * Laz Beasley RN - 12/23/2022 9:25 PM EST Pt in IR, intubated, sedated, T2 Rns present. documented in this [place] [address]-20-2023 Miscellaneous Notes* Care Plan - Denise Durham RN - 01/01/2023 4:32 PM EST Problem: Knowledge Deficit Goal: Patient/family/caregiver demonstrates understanding of disease process, treatment plan, medications, and discharge instructions Outcome: Completed Problem: Potential for Compromised Skin Integrity Goal: Skin Integrity is Maintained or Improved 01/01/2023 1632 by Denise Durham RN Outcome: Completed 01/01/2023 1006 by Denise Durham RN Outcome: Progressing Flowsheets (Taken 01/01/2023 1006) Skin integrity is maintained or improved: Assess and monitor skin integrity Avoid shearing Keep skin clean and dry Goal: Nutritional status is improving Outcome: Completed Problem: Urinary Incontinence Goal: Perineal skin integrity is maintained or improved Outcome: Completed Problem: Safety - Non-violent/Interference with Medical Treatment Restraint Goal: Remains free of injury from restraints (Restraint for Interference with University Counselor) Outcome: Completed Goal: Free from restraint(s) (Restraint for Interference with University Counselor) Outcome: Completed Problem: Problem Interventions Goal: Dietary Supplements Outcome: Completed Goal: Promote nutritional intake Outcome: Completed Goal: Assess Nutritional Intake Outcome: Completed * Care Coordination - Unknown Case Management - 01/01/2023 3:14 PM EST Patient Choice Patient Name: DONNA MARSH Date of : 1955 All Providers Sent Referral Name: [facility] Phone: [phone] Address: [address] [place] [address] Name: [facility] Address: [address] [place] [address] Name: [facility] Phone: [phone] Address: [address] [place] [address] * Care Coordination - Asim Santos RN - 01/01/2023 2:44 PM EST Auth received for admission to [facility]. Transport set for 700pm. Call made to frandy Ge , no answer left message notifying of pending dc and pick pulling machine tender time. * Care Coordination - Asim Santos RN - 01/01/2023 1:34 PM EST [facility] Accepted patient for admission. Awaiting insurance approval. 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 7000 completed in HENs. * Care Coordination - Asim Santos RN - 01/01/2023 11:55 AM EST [facility] is facility of choice. Referral sent awaiting to see if bed available. * Care Coordination - Asim Santos RN - 01/01/2023 10:46 AM EST Notified that [facility] is out of network. Call made to frandy Ge, left message requesting return call, will discuss alternate options with patient and family. * Care Plan - Denise Durham RN - 01/01/2023 10:07 AM EST Problem: Potential for Compromised Skin Integrity Goal: Skin Integrity is Maintained or Improved Outcome: Progressing Flowsheets (Taken 01/01/2023 1006) Skin integrity is maintained or improved: Assess and monitor skin integrity Avoid shearing Keep skin clean and dry * Care Plan - Carrol Patel RN - 12/31/2022 9:28 PM EST Problem: Knowledge Deficit Goal: Patient/family/caregiver demonstrates understanding of disease process, treatment plan, medications, and discharge instructions Outcome: Progressing Problem: Potential for Compromised Skin Integrity Goal: Skin Integrity is Maintained or Improved Outcome: Progressing Goal: Nutritional status is improving Outcome: Progressing Problem: Urinary Incontinence Goal: Perineal skin integrity is maintained or improved Outcome: Progressing Problem: Safety - Non-violent/Interference with Medical Treatment Restraint Goal: Remains free of injury from restraints (Restraint for Interference with University Counselor) Outcome: Progressing Goal: Free from restraint(s) (Restraint for Interference with University Counselor) Outcome: Progressing * Care Coordination - Terrie Scott RN - 12/31/2022 9:25 AM EST Images from the original note were not included. CARE COORDINATION DAILY NOTE/UPDATE Medical Plan: admitted s/p fall off scooter. S/P Intertan nailing of right hip on 12/27. PT/OT rec SNF. Discharge Plan: [place] [facility] Discharge Barriers: pending AUTH, medical clearance and completion of discharge orders This TCC was tasked to follow this patient through the weekend assisting with discharge planning. Chart and Careport reviewed. Placed call to [employer] (8) then (1). Per [facility]inder- pending and in clinical review. Expected discharge, Discharge Milestones, and Rapid Rounding reviewed and updated. TCC will continue to follow. Discharge Milestones and Delays Expected Date/Time: 12/31/[address] discharge order Complete med reconciliation Case mgmt discharge readiness Clinical Stability Diagnsotic Workup Expected Discharge History Expected Date/Time Set By Reviewed At 12/31/2022 Terrie Scott RN 12/30/2022 1:55 PM pending AUTH, medical clearance, and completion of discharge orders. 12/29/2022 Asim Santos RN 12/29/2022 5:15 AM 12/29/2022 Asim Santos RN 12/28/2022 11:10 AM 12/29/2022 Asim Santos RN 12/27/2022 5:30 AM 12/28/2022 Carly De La Rosa RN 12/25/2022 8:29 AM 12/25/2022 Esteban Hawley MD 12/23/2022 10:36 PM 12/25/2022 Esteban Hawley MD 12/23/2022 9:06 PM Length of Stay (Days): 8 GMLOS: 6.3 * Care Plan - Carrol Patel RN - 12/30/2022 9:48 PM EST Problem: Knowledge Deficit Goal: Patient/family/caregiver demonstrates understanding of disease process, treatment plan, medications, and discharge instructions Outcome: Progressing Problem: Potential for Compromised Skin Integrity Goal: Skin Integrity is Maintained or Improved Outcome: Progressing Goal: Nutritional status is improving Outcome: Progressing Problem: Urinary Incontinence Goal: Perineal skin integrity is maintained or improved Outcome: Progressing Problem: Safety - Non-violent/Interference with Medical Treatment Restraint Goal: Remains free of injury from restraints (Restraint for Interference with University Counselor) Outcome: Progressing Goal: Free from restraint(s) (Restraint for Interference with University Counselor) Outcome: Progressing * Care Coordination - Terrie Scott RN - 12/30/2022 1:42 PM EST Images from the original note were not included. CARE COORDINATION DAILY NOTE/UPDATE Medical Plan: admitted s/p fall off scooter. S/P Intertan nailing of right hip on 12/27. PT/OT rec SNF. Discharge Plan: [facility] Discharge Barriers: pending AUTH, medical clearance, and completion of discharge orders. Received message from Rudy VILLASENOR that [facility] called her expecting this patient at noon. I Called Kaya at facility [phone] left message form admissions on secure voicemail, called [phone] andspoke with RN- they were misinformed, patients AUTH has not come back yet and is still pending. Rudy VILLASENOR updated. Expected discharge, Discharge Milestones, and Rapid Rounding reviewed and updated. TCC will continue to follow. Discharge Milestones and Delays Expected Date/Time: 12/31/[address] discharge order Complete med reconciliation Case mgmt discharge readiness Clinical Stability Diagnsotic Workup Expected Discharge History Expected Date/Time Set By Reviewed At 12/31/2022 Terrie Scott RN 12/30/2022 1:55 PM pending AUTH, medical clearance, and completion of discharge orders. 12/29/2022 Asim Santos RN 12/29/2022 5:15 AM 12/29/2022 Asim Santos RN 12/28/2022 11:10 AM 12/29/2022 Asim Santos RN 12/27/2022 5:30 AM 12/28/2022 Carly De La Rosa RN 12/25/2022 8:29 AM 12/25/2022 Esteban Hawley MD 12/23/2022 10:36 PM 12/25/2022 Esteban Hawley MD 12/23/2022 9:06 PM Length of Stay (Days): 7 GMLOS: 6.3 * Care Plan - Veda Birch RN - 12/29/2022 8:40 PM EST Problem: Knowledge Deficit Goal: Patient/family/caregiver demonstrates understanding of disease process, treatment plan, medications, and discharge instructions Outcome: Progressing Problem: Potential for Compromised Skin Integrity Goal: Skin Integrity is Maintained or Improved Outcome: Progressing Goal: Nutritional status is improving Outcome: Progressing Problem: Urinary Incontinence Goal: Perineal skin integrity is maintained or improved Outcome: Progressing Problem: Safety - Non-violent/Interference with Medical Treatment Restraint Goal: Remains free of injury from restraints (Restraint for Interference with University Counselor) Outcome: Progressing Goal: Free from restraint(s) (Restraint for Interference with University Counselor) Outcome: Progressing * Care Coordination - Asim Santos RN - 12/29/2022 12:41 PM EST [facility] insurance approval. Task sent for auth to be submitted. * Care Coordination - Asim Santos RN - 12/29/2022 11:18 AM EST [facility] left [facility] requesting return call to check on status of referral. * Care Coordination - Asim Santos RN - 12/29/2022 10:09 AM EST Images from the original note were not included. Care Management Progress Note Met with patient at bedside, discussed alternate SNF options, agreeable to referral to [facility].Referral sent, awaiting response. Will need insurance approval prior to dc. Updated daughter Joo of the above per patient request, agreeable to plan. Discharge Milestones and Delays Expected Date/Time: 12/29/[address] discharge order Complete med reconciliation Case mgmt discharge readiness Clinical Stability Diagnsotic Workup Expected Discharge History Expected Date/Time Set By Reviewed At 12/29/2022 Asim Santos RN 12/29/2022 5:15 AM 12/29/2022 Asim Santos RN 12/28/2022 11:10 AM 12/29/2022 Asim Santos RN 12/27/2022 5:30 AM 12/28/2022 Carly De La Rosa RN 12/25/2022 8:29 AM 12/25/2022 Esteban Hawley MD 12/23/2022 10:36 PM 12/25/2022 Esteban Hawley MD 12/23/2022 9:06 PM Length of Stay (Days): 6 GMLOS: 6.3 * Care Coordination - Asim Santos RN - 12/29/2022 5:32 AM EST Notified [facility] [place] has no bed available unable to accept. Will discuss alternate options with patient and family today. * Care Coordination - Asim Santos RN - 12/28/2022 11:10 AM EST Images from the original note were not included. Care Management Progress Note Patient pod#1 CMN. Pain control, medications adjusted as needed. PT recs snf. Patient gave permission for this RN to call daughter Joo, call made introduced self and role. Discussed therapy recommendations verified that patient has been to [facility] [place] and is willing to return when ready fordc. Notified will need insurance approval. Questions answered. Referral sent. Electronically signedby Asim Santos RN on 12/28/2022 at 11:13 AM Discharge Milestones and Delays Expected Date/Time: 12/29/[address] discharge order Complete med reconciliation Case mgmt discharge readiness Clinical Stability Diagnsotic Workup Expected Discharge History Expected Date/Time Set By Reviewed At 12/29/2022 Asim Santos RN 12/28/2022 11:10 AM 12/29/2022 Asim Santos RN 12/27/2022 5:30 AM 12/28/2022 Carly De La Rosa RN 12/25/2022 8:29 AM 12/25/2022 Esteban Hawley MD 12/23/2022 10:36 PM 12/25/2022 Esteban Hawley MD 12/23/2022 9:06 PM Length of Stay (Days): 5 GMLOS: 6.3 * Op Note - Nicola Adhikari MD - 12/27/2022 11:59 AM EST [facility] MAIN OR [address] [facility] [address] Dept: [phone] Loc: [phone] Operative Report Patient Name: Pal Padgett Date of : 1955 Date of Surgery: 12/27/22 Pre-operative diagnosis: Right intertrochanteric femur fracture Post-operative diagnosis: Same Procedure(s): Intertan nailing of right intertrochanteric femur fracture Surgeon: Nicola Adhikari M.D. Ic Engineer(s): Nino Moffett M.D. and Debi Lamb M.D. Anesthesia: General EBL: 100 cc IVF: Crystalloid Medications: Patient is already on scheduled antibiotics Implants: Intertan 10mm x44cm nail, 125 degree Clinical History/Indication for Surgery The patient is a 67 y.o. year old female who was presents for operative fixation of a right intertrochanteric femur fracture. Typical indications for surgery were reviewed and long Intertan nailing was recommended. Risks of surgery in general were reviewed including, but not limited to, infection, nonunion, need for additional procedures, failure of fixation which would require revision, damage to normal structures as well as medical complications such as MN, stroke, PE, DVT, and even . Patient and any family present were given opportunity to ask questions and consider her options ultimately electing to proceed with surgery. No guarantees were given or implied. Operative Narration The patient was identified in the pre-operative holding area. The surgical site was identified and marked. Informed consent was obtained. The patient was then brought to the operating room and placedsupine on the operating table. Anesthesia was administered and care of the head, neck, and airway was maintained by the anesthesia staff throughout the entire procedure. Patient was placed onto the fracture table. A well padded perineal post was placed. Both feet were well padded and placed in traction. Preop fluoroscopy confirmed a successful closed reduction. All bony prominences were identified and padded. The operative leg was prepped and draped in the usual sterile fashion. A surgical timeout was performed. Antibiotics were confirmed to have been given. There was still persistent displacement on the lateral and therefore the fracture was opened and clamped. The IT band was split and the vastus elevated anteriorly. Two clamped were used to reduce theshaft which was severely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 hypotensive in the 50s systolic despite 3 U pRBC en route. She transiently responded to blood products via MTP before becoming hypotensive again. IR was contacted for embolization, however she appeared too unstable to await IR suite mobilization so was taken to the OR emergently. Second look laparotomy and pelvic packing on 12/25, plan for RTOR with orthopedics today for R CMN INJURIES: - Right pelvic fracture, right intertrochanteric femur fracture PROCEDURES: - Pelvic packing and IR selective embolization 12/23 - 2nd look lap and removal pelvic packing 12/25 - CTA head/neck and CT perfusion scan 12/26 CHIEF COMPLAINT: Mechanical fall PREVIOUS 24 HOUR EVENTS: - Delirium with abnormal speech warranting brain perfusion scan and CTA head and neck Consults: IP CONSULT TO DIETITIAN IP CONSULT TO ORTHOPAEDIC SURGERY IP CONSULT TO GERIATRICS IP CONSULT TO PALLIATIVE CARE IP CONSULT TO GERIATRICS MEDICATIONS: Current Facility-Administered Medications: acetaminophen (Ofirmev) IVPB 1,000 mg, 1,000 mg, IntraVENous, q8h, Esteban Hawley MD, Stopped at 12/27/2223 atorvastatin (Lipitor) tablet 40 mg, 40 mg, Oral, Daily, Fallon More MD, 40 mg at 12/26/222056 busPIRone (Buspar) tablet 15 mg, 15 mg, Oral, BID, Fallon More MD, 15 mg at 12/26/222056 carvedilol (Coreg) tablet 3.125 mg, 3.125 mg, Oral, BID WC, Fallon More MD, 3.125 mg at 12/26/22 175 dextrose 5 % infusion, 100 mL/hr, IntraVENous, PRN, Dereck Joshi Gemma, DO dextrose 50 % solution 12.5 g, 12.5 g, IntraVENous, PRN, Dereck Joshi Gemma, DO, 12.5 g at 12/26/223 [Held by provider] enoxaparin (Lovenox) syringe 30 mg, 30 mg, SubCUTAneous, q12h, Bari Glass MD FLUoxetine (PROzac) capsule 40 mg, 40 mg, Oral, BID, Fallon More MD, 40 mg at 12/26/222056 glucagon (human recombinant) injection 1 mg, 1 mg, IntraMUSCular, PRN, Dereck C Gemma, DO glucose oral gel 15 g, 15 g, Oral, PRN, Dereck C Gemma, DO hydrALAZINE (Apresoline) injection 10 mg, 10 mg, IntraVENous, q4h PRN, Alvarez Guerrero MD, 10 mg at 12/26/22 2145 HYDROmorphone (Dilaudid) injection 0.5 mg, 0.5 mg, IntraVENous, q3h PRN, Dereck Lopez DO, 0.5 mg at 12/27/22 0431 Influenza Vac A&B SA Adj quadrivalent (Fluad) vaccine 0.5 mL, 0.5 mL, IntraMUSCular, Once, Esteban Hawley MD Insulin Lispro (Humalog) injection 0-12 Units, 0-12 Units, SubCUTAneous, TID WC, 2 Units at 12/24/22 1212 AND Insulin Lispro (Humalog) injection 0-12 Units, 0-12 Units, SubCUTAneous, Nightly, Esteban Hawley MD, 4 Units at 12/24/22 0047 ipratropium-albuterol (Duo-Neb) 0.5-2.5 mg/3 mL nebulizer solution 3 mL, 3 mL, Nebulization, TID, Esteban Hawley MD, 3 mL at 12/26/222006 labetalol (Normodyne,Trandate) injection 20 mg, 20 mg, IntraVENous, q2h PRN, Dereck Lopez DO, 20 mg at 12/26/222019 lactated Ringer's (LR) infusion, 50 mL/hr, IntraVENous, Continuous, Fallon More MD, Last Rate: 50 mL/hr at 12/26/22 1007, 50 mL/hr at 12/26/22 1007 Melatonin sublingual liquid 0.3 mg, 0.3 mg, SubLINGual, Nightly, Bari Glass MD, 0.3 mg at 12/26/222056 ondansetron ODT (Zofran-ODT) disintegrating tablet 4 mg, 4 mg, Oral, q8h PRN OR ondansetron (Zofran) injection 4 mg, 4 mg, IntraVENous, q6h PRN, Esteban Hawley MD, 4 mg at 12/26/223 oxyCODONE (Roxicodone) immediate release tablet 2.5 mg, 2.5 mg, Oral, q4h PRN OR oxyCODONE (Roxicodone) immediate release tablet 5 mg, 5 mg, Oral, q4h PRN, Bari Glass MD, 5 mg at 12/26/22 1507 polyethylene glycol (PEG) 3350 (Miralax) packet 17 g, 17 g, Oral, Daily, Esteban Hawley MD, 17 g at102/23/22 0806 QUEtiapine (SEROquel) tablet 25 mg, 25 mg, Oral, Nightly, Fallon More MD, 25 mg at 12/26/222056 sennosides (Senokot) tablet 17.2 mg, 2 tablet, Oral, Nightly, Esteban Hawley MD, 17.2 mg at 12/26/222056 ARE THERE PERTINENT UPDATES TO PAST,FAMILY, OR SOCIAL HISTORY?: No Subjective: Patient resting comfortably in bed this morning. Delirium seems mildly improved, no agitation and patient seems to understand plan to return to OR today with orthopedics. Denies new or worsening symptoms, claims her hip pain is still severe. Oriented to self, knew the month and knew she was in a [facility]. Review of Systems Constitutional: Negative. HENT: Negative. Eyes: Negative. Respiratory: Negative. Cardiovascular: Negative. Gastrointestinal: Negative for nausea and vomiting. Abdominal incision with dressing overlying, mild drainage present Endocrine: Negative. Genitourinary: Negative. Mur[place] in place Musculoskeletal: Pain about the right groin/hip. Denies other new extremity pains Skin: Negative. No erythema surrounding abdominal dressing Neurological: Negative. Objective: Patient Vitals for the past 24 hrs: BP Temp Temp src Pulse Resp SpO2 Weight 12/27/22 0600 (!) 151/68 37.6 C (99.7 F) -- 100 18 100 % -- 12/27/22 0500 117/68 37.6 C (99.7 F) -- 99 17 100 % -- 12/27/22 0400 138/71 37.6 C (99.7 F) Bladder 95 15 100 % -- 12/27/22 0300 113/64 37.7 C (99.9 F) -- 92 14 100 % -- 12/27/22 0200 119/55 38 C (100.4 F) -- 96 15 100 % -- 12/27/22 0100 105/61 (!) 38.1 C (100.6 F) -- 99 16 99 % -- 12/27/22 0000 (!) 142/70 (!) 38.1 C (100.6 F) Bladder 102 24 99 % -- 12/26/22 2300 (!) 141/68 37.8 C (100 F) -- 100 23 98 % -- 12/26/22 2200 127/62 37.7 C (99.9 F) -- 95 19 100 % -- 12/26/22 2100 (!) 156/72 37.6 C (99.7 F) -- 90 (!) 29 100 % -- 12/26/222007 -- -- -- 90 20 100 % -- 12/26/22 2000 (!) 172/78 37.5 C (99.5 F) Bladder 89 19 100 % -- 12/26/22 1900 (!) 164/74 37.7 C (99.9 F) -- 86 17 100 % -- 12/26/22 1845 -- 37.8 C (100 F) -- 91 18 100 % -- 12/26/22 1830 -- 37.8 C (100 F) -- 87 15 100 % -- 12/26/22 1815 -- 37.8 C (100 F) -- 86 15 100 % -- 12/26/22 1800 -- 37.8 C (100 F) -- 86 16 100 % -- 12/26/22 1759 (!) 151/76 37.8 C (100 F) -- 86 21 100 % -- 12/26/22 1749 (!) 164/76 37.9 C (100.2 F) -- 94 23 100 % -- 12/26/22 1700 (!) 177/83 (!) 38.1 C (100.6 F) -- 96 15 98 % -- 12/26/22 1645 -- (!) 38.1 C (100.6 F) -- 103 18 96 % -- 12/26/22 1600 (!) 158/69 (!) 38.1 C (100.6 F) -- 90 15 98 % -- 12/26/22 1530 (!) 155/80 38 C (100.4 F) -- 105 20 99 % -- 12/26/22 1500 (!) 145/126 37.9 C (100.2 F) -- 104 22 100 % -- 12/26/22 1400 (!) 157/70 37.7 C (99.9 F) -- 105 17 98 % -- 12/26/22 1317 -- 37.5 C (99.5 F) -- 110 26 98 % -- 12/26/22 1300 (!) 155/77 37.4 C (99.3 F) -- 100 21 100 % -- 12/26/22 1233 -- -- -- 96 15 100 % -- 12/26/22 1200 (!) 159/74 37.3 C (99.1 F) -- 103 17 -- -- 12/26/22 1100 (!) 156/74 37.1 C (98.8 F) -- 96 16 100 % -- 12/26/22 1000 137/64 37.1 C (98.8 F) -- 83 14 99 % -- 12/26/22 0900 117/61 37.3 C (99.1 F) -- 77 14 99 % -- 12/26/22 0827 -- 37.3 C (99.1 F) -- 81 15 100 % -- 12/26/22 0800 104/58 37.3 C (99.1 F) -- 75 14 100 % -- 12/26/22 0629 -- -- -- -- -- -- 80.9 kg (178 lb 5.6 oz) Intake/Output Summary (Last 24 hours) at 12/27/2022 0607 Last data filed at 12/27/2022 0600 Gross per 24 hour Intake 2756 ml Output 2425 ml Net 331 ml I/O this shift: In: 674 [I.V.:674] Out: 750 [Urine:750] Last BM: This morning Diet: Dietary Orders (From admission, onward) Start Ordered 12/27/22 0001 NPO diet with enteral medications Diet effective midnight Question: Medications? Answer: with enteral medications 12/26/22 0558 CVP: No Chest Tubes: R: No L: No PHYSICAL: Physical Exam Constitutional: General: She is not in acute distress. Appearance: She is obese. Comments: Denies subjective fever HENT: Head: Normocephalic and atraumatic. Right Ear: External ear normal. Left Ear: External ear normal. Nose: Nose normal. Mouth/Throat: Mouth: Mucous membranes are dry. Pharynx: Oropharynx is clear. Eyes: Extraocular Movements: Extraocular movements intact. Conjunctiva/sclera: Conjunctivae normal. Pupils: Pupils are equal, round, and reactive to light. Cardiovascular: Rate and Rhythm: Normal rate and regular rhythm. Pulses: Normal pulses. Pulmonary: Effort: Pulmonary effort is normal. No respiratory distress. Breath sounds: No wheezing. Comments: Patient currently on 2L supp O2 via NC. O2 saturation has been adequate overnight with sats >90% Abdominal: General: There is no distension. Tenderness: There is abdominal tenderness. Comments: Abdominal incision with overlying dressing appears intact. Mild drainage, no evidence of active bleeding or drainage. Patient appropriately tender to palpation in the surrounding areas. Musculoskeletal: General: Tenderness and signs of injury present. Normal range of motion. Cervical back: Normal range of motion and neck supple. Comments: Patient exquisitely tender over the right hip area. Skin intact over entire injured area.SILT distal to the injury, able to wiggle toes and DF/PF ankle Skin: General: Skin is warm and dry. Neurological: General: No focal deficit present. Mental Status: She is alert. Mental status is at baseline. Comments: Oriented to self, knew the month and upcoming holiday, did not know the year. Knew she was in a [facility] Sutures or yasmeen? Yes O2: Vent Mode: Spontaneous / / /FiO2 (%): 40 % Data Review Data CBC with Differential: Lab Results Component Value Date WBC 15.0 (H) 12/27/2022 RBC 3.19 (L) 12/27/2022 HGB 9.3 (L) 12/27/2022 HCT 27.6 (L) 12/27/2022 PLT 169 12/27/2022 CMP: Lab Results Component Value Date NA 137 12/27/2022 K 3.9 12/27/2022 CL 103 12/27/2022 CO2 26 12/27/2022 BUN 16 12/27/2022 CREATININE 0.68 12/27/2022 GLUCOSE 99 12/27/2022 PROT 5.3 (L) 12/26/2022 CALCIUM 8.5 12/27/2022 BILITOT 1.2 12/26/2022 ALKPHOS 57 12/26/2022 AST 24 12/26/2022 ALT 12 12/26/2022 BMP: Hepatic Function Panel:Ionized Calcium: No components found for: IONCA Magnesium: No results found for: MG Phosphorus: No results found for: PHOS PT/INR: Lab Results Component Value Date PROTIME 10.9 12/27/2022 INR 1.0 12/27/2022 PTT: Lab Results Component Value Date APTT 30.7 (H) 12/27/2022 [APTT Last 3 Troponin: No results found for: TROPONINI Urine Culture: No components found for: CURINE Blood Culture: No components found for: CBLOOD, CFUNGUSBL Blood Culture from Central Line: No components found for: CBLOODLN Stool Culture: No components found for: CSTOOL Sputum Culture: No components found for: CSPUTUM Sputum Culture for AFB: No components found for: CAFBSM Wound Culture: N/A Radiology: CT PERFUSION Narrative: [facility] 1955 [id number] Exam Date/Time: 12/26/2022 13:51 Procedure: CT PERFUSION Ordering Provider: HAWLEY RATHNA Reason For Exam: Delerium vs aphasia CT HEAD, CEREBRAL PERFUSION AND CT ANGIOGRAPHY/VENOGRAPHY HEAD AND NECK: Indication: Delirium versus aphasia Scan Parameters: Transaxial CT sequence performed through the head with 3 mm reconstruction. Sagittal and Coronal reconstruction images included. Next, dynamic 4D CT angiograms of the intracranial vessels and CT Perfusion study of the whole brain were performed with intravenous administration of 50mL of Isovue 370. The data set was post processed 4D CT angiograms, 3-D shaded surface display CT angiograms, and color coded CT perfusion maps of cerebral blood volume, mean transit time, and cerebral blood flow. Following this, CT angiogram of the extracranial carotid and vertebral vessels was performed following bolus injection of 50 mL Isovue-370. The CT angiographic studies of the extracranial vessels were post processed concurrently by myself on a 3-D workstation with multiple shaded surface display and vessel probe CT angiographic analyses. Measurement of carotid stenosis is a ratio based on conventional angiographic data from the NASCET trials with the smallest caliber of the internal carotid as the numerator and normal post-stenotic internal carotid caliber as denominator.Dose reduction was employed with automated exposure control. Comparison: Outside hospital study dated 08/07/2022. Findings: CT HEAD: Ventricles and Extra-axial spaces: Mild generalized enlargement of the ventricles and sulci is noted. No abnormal extracerebral collection identified. Cerebral and cerebellar parenchyma: Periventricular low attenuation areas are noted bilaterally, likely due to white matter small vessel ischemic change. No evidence of hemorrhage. No additional focal mass lesion or evidence for acute infarct is identified throughout the cerebrum or cerebellum. There is a calcified extra-axial focus overlying the left frontal lobe measuring approximately 0.[address] perfusion: No global or regional perfusion abnormalities are noted on the MTT, CBV, or CBF maps.There are small areas of Tmax elevation greater than six seconds within the anterior bilateral frontal lobes. Aortic arch: The aortic arch demonstrates normal caliber. A normal branching pattern of the great vessels is noted without stenosis at the origins. Right carotid: The right carotid artery demonstrates normal caliber common and external branch. Atherosclerotic calcifications are present in the internal carotid artery, resulting in approximately 55% proximal ICA stenosis. Patent flow extends into the intracranial circulation. Left carotid: The left carotid artery demonstrates normal caliber common and external branch. Atherosclerotic calcifications are present in the internal carotid artery, resulting in approximately 72%proximal ICA stenosis. Patent flow extends into the intracranial circulation. Vertebral arteries: There is patent antegrade flow noted within the vertebral arteries. Intracranial arteries: Calcifications are present in the bilateral carotid siphons Patent flow is identified throughout the anterior, middle and posterior cerebral arteries. No vascular malformation or aneurysm above 3 mm in caliber is identified. The regions of the anterior and posterior communicating arteries are unremarkable. Neck: There is no evidence for cystic or solid mass within the deep or superficial spaces of the neck. The salivary glands and thyroid are unremarkable. There is no evidence for lymphadenopathy. The airway structures demonstrate no abnormality. Lung apices: Partly visualized right pleural effusion. Right apical scarring. Osseous structures: Age-indeterminate compression deformity of C3 with sclerotic changes. Mild degenerative changes in the visualized spine. Impression: 1. No evidence of acute cortical infarct on the perfusion images. Small areas of Tmax elevation are present in the anterior bilateral frontal lobes. While these could be due to ischemia, given the degree of patient motion during the study, their small size and distribution, findings arefelt to more likely be artifactual. No intracranial hemorrhage or definite acute cortical infarct on the unenhanced CT. Note that if there is persistent concern for an acute infarct, MRI is a more sensitive means of evaluation. 2. No large vessel intracranial arterial occlusion. 3. Atherosclerotic disease resulting in approximately 72% left ICA stenosis and 55% right ICA stenosis. No vertebral artery occlusion. 4. Small extra-axial calcification overlying the left frontal lobe, possibly a meningioma. ConsiderMRI with contrast for further evaluation. 5. Mild C3 compression deformity present on the prior study from 08/07/2022. Sclerotic changes are present which could be posttraumatic but a sclerotic lesion is not excluded. 6. Cerebral volume loss. White matter changes likely due to microangiopathic disease. 7. Right pleural effusion and right apical scarring. CRITICAL TEST RESULT COMMUNICATION: Notification of these findings was made to ESTEBAN HAWLEY via [employer] Secure Chat on 12/26/2022 3:11 PM EST. Report Dictated on Electronically Signed By: Dereck Gramajo MD Electronically Signed Date/Time: 12/26/2022 3:12 PM EST CTA head neck angio w and wo IV contrast Narrative: [facility] 1955 [id number] Exam Date/Time: 12/26/2022 13:51 Procedure: CT HEAD NECK ANGIO W AND WO IV CONTRAST Ordering Provider: HAWLEY RATHNA Reason For Exam: Delerium vs aphasia CT HEAD, CEREBRAL PERFUSION AND CT ANGIOGRAPHY/VENOGRAPHY HEAD AND NECK: Indication: Delirium versus aphasia Scan Parameters: Transaxial CT sequence performed through the head with 3 mm reconstruction. Sagittal and Coronal reconstruction images included. Next, dynamic 4D CT angiograms of the intracranial vessels and CT Perfusion study of the whole brain were performed with intravenous administration of 50mL of Isovue 370. The data set was post processed 4D CT angiograms, 3-D shaded surface display CT angiograms, and color coded CT perfusion maps of cerebral blood volume, mean transit time, and cerebral blood flow. Following this, CT angiogram of the extracranial carotid and vertebral vessels was performed following bolus injection of 50 mL Isovue-370. The CT angiographic studies of the extracranial vessels were post processed concurrently by myself on a 3-D workstation with multiple shaded surface display and vessel probe CT angiographic analyses. Measurement of carotid stenosis is a ratio based on conventional angiographic data from the NASCET trials with the smallest caliber of the internal carotid as the numerator and normal post-stenotic internal carotid caliber as denominator.Dose reduction was employed with automated exposure control. Comparison: Outside hospital study dated 08/07/2022. Findings: CT HEAD: Ventricles and Extra-axial spaces: Mild generalized enlargement of the ventricles and sulci is noted. No abnormal extracerebral collection identified. Cerebral and cerebellar parenchyma: Periventricular low attenuation areas are noted bilaterally, likely due to white matter small vessel ischemic change. No evidence of hemorrhage. No additional focal mass lesion or evidence for acute infarct is identified throughout the cerebrum or cerebellum. There is a calcified extra-axial focus overlying the left frontal lobe measuring approximately 0.[address] perfusion: No global or regional perfusion abnormalities are noted on the MTT, CBV, or CBF maps.There are small areas of Tmax elevation greater than six seconds within the anterior bilateral frontal lobes. Aortic arch: The aortic arch demonstrates normal caliber. A normal branching pattern of the great vessels is noted without stenosis at the origins. Right carotid: The right carotid artery demonstrates normal caliber common and external branch. Atherosclerotic calcifications are present in the internal carotid artery, resulting in approximately 55% proximal ICA stenosis. Patent flow extends into the intracranial circulation. Left carotid: The left carotid artery demonstrates normal caliber common and external branch. Atherosclerotic calcifications are present in the internal carotid artery, resulting in approximately 72%proximal ICA stenosis. Patent flow extends into the intracranial circulation. Vertebral arteries: There is patent antegrade flow noted within the vertebral arteries. Intracranial arteries: Calcifications are present in the bilateral carotid siphons Patent flow is identified throughout the anterior, middle and posterior cerebral arteries. No vascular malformation or aneurysm above 3 mm in caliber is identified. The regions of the anterior and posterior communicating arteries are unremarkable. Neck: There is no evidence for cystic or solid mass within the deep or superficial spaces of the neck. The salivary glands and thyroid are unremarkable. There is no evidence for lymphadenopathy. The airway structures demonstrate no abnormality. Lung apices: Partly visualized right pleural effusion. Right apical scarring. Osseous structures: Age-indeterminate compression deformity of C3 with sclerotic changes. Mild degenerative changes in the visualized spine. Impression: 1. No evidence of acute cortical infarct on the perfusion images. Small areas of Tmax elevation are present in the anterior bilateral frontal lobes. While these could be due to ischemia, given the degree of patient motion during the study, their small size and distribution, findings arefelt to more likely be artifactual. No intracranial hemorrhage or definite acute cortical infarct on the unenhanced CT. Note that if there is persistent concern for an acute infarct, MRI is a more sensitive means of evaluation. 2. No large vessel intracranial arterial occlusion. 3. Atherosclerotic disease resulting in approximately 72% left ICA stenosis and 55% right ICA stenosis. No vertebral artery occlusion. 4. Small extra-axial calcification overlying the left frontal lobe, possibly a meningioma. ConsiderMRI with contrast for further evaluation. 5. Mild C3 compression deformity present on the prior study from 08/07/2022. Sclerotic changes are present which could be posttraumatic but a sclerotic lesion is not excluded. 6. Cerebral volume loss. White matter changes likely due to microangiopathic disease. 7. Right pleural effusion and right apical scarring. CRITICAL TEST RESULT COMMUNICATION: Notification of these findings was made to ESTEBAN HAWLEY via [employer] Secure Chat on 12/26/2022 3:11 PM EST. Report Dictated on Electronically Signed By: Dereck Gramajo MD Electronically Signed Date/Time: 12/26/2022 3:12 PM EST Patient Active Problem List Diagnosis Closed displaced intertrochanteric fracture of right femur (HCC) Trauma Closed fracture of multiple pubic rami, right, initial encounter ([facility]) Hemorrhagic shock ([facility]) Fall from motorized mobility scooter Assessment: 67 y/o F presenting as transfer from [place] after fall off a scooter, found to have the following injuries: -R intertrochanteric fx, R superior/inferior pubic rami fx, large L sided pelvic hematoma She is s/p ex lap with preperitoneal pelvic packing with 15 lap pads in the pelvis. She became hemodynamically stable after pelvic packing and was taken to IR for empiric IR embolization 12/23. Takenfor 2nd look lap and removal of packing 12/25. Awaiting orthopedic procedure to fix IT fracture today Plan: Neuro / Spine - Pain control: IV tylenol, oxycodone PO and IV dilaudid prn - Used dilaudid multiple times overnight, pain present but appropriate with this regimen - Discontinued precedex, restarted home meds and added melatonin and seroquil 25 nightly -Brain perfusion scan and CTA head neck obtained yesterday, negative Cardiovascular - Hemodynamically stable - Labetalol/hydralazine prn - Telemetry Pulmonary - Standard O2 protocol - On 3L NC, sats adequate, no increased WOB - IS - Duonebs TID FEN/GI - NPO in anticipation of OR - LR @ 50cc/hr - Zofran PRN - Miralax and Senna - Daily BMP, CBC, Mg, Phos - Replace murcia, obtain UA w/ reflex to culture - Cannot determine if bacteruria is symptomatic or not with murcia in place - After patient is out of OR with ortho, will continue to monitor before treating. If patient is symptomatic when murcia is removed, has up-trending WBC or is more febrile will consider treating with Abx outside of perioperative ancef - Monitor I/Os - Goal UOP > 0.5 ml/kg/hr Endocrine - No acute issues - SSI Heme - Hgb 9.3, down from 9.7 - No transfusions indicated - Holding anticoagulation in anticipation of OR - Repeat CBC post op ID - No acute issues - Consider antibiotics for bacteruria once out of OR with ortho Lines/Devices: - PIV - Arterial line - discontinued - Murcia - replaced with new one today Prophylaxis: DVT: SCDs, no chemoppx due to OR today Has DVT PPX been started? Yes If no, why? GI: Pepsid Pressure Ulcer: Continue to monitor, q2 turns Musculoskeletal: - PT/OT - Bedrest - NWB RLE - Non op pubic rami fx, plan for CMN for R IT fx today per orthopedics - Cleared for surgery today from trauma perspective Is the patient in restraints?: No Medications Reconciled- Yes [x] NO [] Disposition: Medically stable for transfer to H5/H6 Shabbir Norman Baca MD General Surgery Resident PGY-1 12/27/22 6:07 AM This note may have been dictated using [employer] Edition 2.6 and/or [employer] Voice Recognition Feature. The document was proofread; however, unrecognized voice recognition electric meter reader errors may be present. Associated attestation - Sue Joe MD - 12/29/2022 7:00 PM EST ATTENDING ADDENDUM Patient Active Problem List Diagnosis Closed displaced intertrochanteric fracture of right femur (HCC) Trauma Closed fracture of multiple pubic rami, right, initial encounter (HCC) Hemorrhagic shock (HCC) Fall from motorized mobility scooter I personally supervised the resident/DYE MACHINE OPERATOR/FRANKLIN in the evaluation and development of a treatment plan for this patient on the same day of service as above. I personally discussed the review of systemsand interviewed the patient along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 joint. Details of Examination: Exam show a well fixed, well positioned hip arthroplasty with no evidence of wear, osteolysis, fracture, or loosening. Impression: Status post left revision total hip arthroplasty, implant in good position with no abnormality. Assessment 1. Failed orthopedic implant, initial encounter (HCC) 2. S/P total left hip arthroplasty Plan Begin 50 % WB to LLE for 2 more weeks, then progress to full weight bearing as able Refill oxycodone - DMP reviewed see below Continue PT/OT Finish Lovenox as prescribed FU in 6 weeks with new XRAYS 2-3 V L HIP Donna will continue with WBAT and therapy exercises. I would like to check the patient back in 6 week(s) with a low AP pelvis and lateral of the proximal femur. We reviewed signs and symptoms of common post-operative issues including infection. We reviewed the need for prophylaxis with dental or other procedures. She will call and return sooner for questions, issues, or concerns. Donna was given a prescription for Oxycodone (YAO). I explained to Donna that narcotic pain medications have addictive potential and should only be taken for severe pain. The narcotic is intended to treat the pain associated with: Orthopedic Surgery It is my clinical judgment that Donna has pain related to a recent major orthopedic surgery that will not be adequately controlled with anti- inflammatories or zhob-mvf-zaedqtg medications and requiresnarcotic pain medication that may exceed 30 MED average and/or a 7 day supply. I explained that narcotic medication should not be taken to help Donna sleep as they only only intended to treat pain. In addition Donna needs to avoid taking other narcotics, anxiolytics or consuming alcohol or using street drugs while she is taking the narcotic because serious side effects including can occur. I discussed the side effects that can occur when taking a narcotic alone including but not limited to: nausea, vomiting, constipation and drowsiness. If Donna has any reactions to the medication(s) or any percieved problems with the medication(s) shewas instructed to stop the medication(s) and call me. The patient's OARRS report was obtained and reviewed by myself today. The patient is not receiving prescriptions from multiple physicians/pharmacies, and the active cumulative morphine equivalent level is under 30 and we will continue to provide this prescription for narcotic pain medication under a carefully monitored basis. The patient has agreed to continue to follow our narcotic policy. Electronically signed by Berry Mares M.D. 11/06/2022 at 2:01 PM. documented in this [facility]09-25-2023 Instructions* Patient Instructions* Wilfrid Garcia MA - 11/06/2022 1:30 PM EDT documented in this [facility]09-18-2023 Telephone encounter Note* Telephone Encounter - Jeannie Stahl LPN - 10/30/2022 11:40 AM EDT Spoke with Wendy and read her what rx stated start 10/15 end 11/14. She verbalized understanding. [facility] [id number] Miscellaneous Notes* Telephone Encounter - Jeannie Stahl LPN - 10/30/2022 11:40 AM EDT Spoke with Wendy and read her what rx stated start 10/15 end 11/14. She verbalized understanding. * Telephone Encounter - Phyllis Guevara PA-C - 10/30/2022 11:36 AM EDT If they wanted 30 days that is fine, can take until 11/14 * Telephone Encounter - Jeannie Stahl LPN - 10/30/2022 11:27 AM EDT Disregard last TE. Sent it after you sent me TE. * Telephone Encounter - Phyllis Guevara PA-C - 10/30/2022 11:21 AM EDT 15 dueñas since script sent. So after the 21st since script was sent 10/18. * Telephone Encounter - Jeannie Stahl LPN - 10/30/2022 11:21 AM EDT Please advise This is what I see in the Rx Start Date: 10/15/22 End Date: 11/14/22 after 30 doses Is this correct? * Telephone Encounter - Mansi Burger - 10/30/2022 11:13 AM EDT Wendy from [facility] [place] called in asking for an end date for Lovenox. Patient was put on the injection upon discharge and they do not know when they are able to discontinue it. Please call Wendy and advise. Patient is also located in [place] documented in this encounterSAultman Orrville [id number] Telephone encounter Note* Telephone Encounter - Phyllis Guevara PA-C - 10/30/2022 11:36 AM EDT If they wanted 30 days that is fine, can take until 11/14 [facility] Phone: [phone] 545-299409-18-2023 Telephone encounter Note* Telephone Encounter - Jeannie Stahl LPN - 10/30/2022 11:27 AM EDT Disregard last TE. Sent it after you sent me TE. [facility] [id number] Telephone encounter Note* Telephone Encounter - Phyllis Guevara PA-C - 10/30/2022 11:21 AM EDT 15 dueñas since script sent. So after the 21st since script was sent 10/18. [facility] [id number] Telephone encounter Note* Telephone Encounter - Jeannie Stahl LPN - 10/30/2022 11:21 AM EDT Please advise This is what I see in the Rx Start Date: 10/15/22 End Date: 11/14/22 after 30 doses Is this correct? [facility] [id number] Telephone encounter Note* Telephone Encounter - Mansi Burger - 10/30/2022 11:13 AM EDT Wendy from [facility] [place] called in asking for an end date for Lovenox. Patient was put on the injection upon discharge and they do not know when they are able to discontinue it. Please call Wendy and advise. Patient is also located in [facility] [id number] Miscellaneous Notes* Telephone Encounter - Kanwal Mccarthy - 10/19/2022 4:10 PM EDT Pt scheduled as directed * Telephone Encounter - Cristina Graham LPN - 10/19/2022 3:50 PM EDT PSS- please cancel lab appointment for tomorrow and reschedule appointment to 2022 @ 11:00. Please make sure the following labs orders and included in the appointment note: -CBC with STAFF REVIEW (order is in from 10/03/2022) -Immunodeficiency CDC (order is in from 10/03/2022) -Mitogen LTT (order in from 10/19/2022). I spoke with patient's nurse at [facility] and the patient's daughter. Cristina Graham LPN documented in this encounterThe [facility] Hospital09-04-2023 Telephone encounter Note * Telephone Encounter - Analy Puma - 10/16/2022 10:39 AM EDT Name of caller requesting page: Rika Phone number of caller: [phone] Facility requesting page: [facility] [place] Reason for page: Rika states that the Patient was not given enough medication to last her and she needs more than 3 Tablets of each medication. Rika states if we cant send to [facility] then we need to call Dr Melchor who is their applications intern Doctor. methocarbamol (Robaxin) 500 MG tablet oxycodone 5MG every 6 hours traMADol (Ultram) 50 MG tablet [facility]: [phone] Dr Melchor: [phone] Provider paged: An[facility] name of paged provider: Hospitalist Page placed to #: n/a Time page was sent or provider contacted: 10:50 Method of contact: secure chat Page content: n/a [facility] [id number] Miscellaneous Notes* Telephone Encounter - Analy Bartholomew - 10/16/2022 10:39 AM EDT Name of caller requesting page: Rika Phone number of caller: [phone] Facility requesting page: [facility] [place] Reason for page: Rika states that the Patient was not given enough medication to last her and she needs more than 3 Tablets of each medication. Rika states if we cant send to [facility] then we need to call Dr Melchor who is their applications intern Doctor. methocarbamol (Robaxin) 500 MG tablet oxycodone 5MG every 6 hours traMADol (Ultram) 50 MG tablet [facility]: [phone] Dr Melchor: [phone] Provider paged: Ananya [facility] Practice name of paged provider: Hospitalist Page placed to #: n/a Time page was sent or provider contacted: 10:50 Method of contact: secure chat Page content: n/a documented in this [facility]09-03-2023 [facility] 10-15-2022 Hospital course Narrative* Miguel Chapman - 10/15/2022 3:18 PM EDT Images from the original note were not included. Hospitalist Discharge Summary Donna Marsh : 1955 Admit date: 10/03/2022 Discharge date: 10/15/2022 Admitting Physician: Sofia Sena MD Primary Care Physician: CICI CALDERON Visit Status: Inpatient Code Status: Full Code Acute, acute on chronic, unstable/uncontrolled chronic problems/discharge diagnoses: Previous left hip fracture s/p fixation with hardware failure Hyperkalemia, resolved Stable chronic problems affecting care, new non-acute discharge diagnoses: Hypertension Type 2 diabetes Neuropathy Past Medical History: Diagnosis Date Bipolar 1 disorder (HCC) Diabetes mellitus (HCC) Hyperlipidemia Hypertension Neuropathy Procedures: Left hip hardware removal with conversion to COSTA (10/10) Hospital Course: Patient is a 66-year-old female with history of hypertension, diabetes, neuropathy and recent left hip fracture s/p fixation in July 2022 who presented to [facility] as a transfer from [place] for concern for hardware failure. Patient suffered hip fracture in July and had ORIF done with [facility] in late July. She presented to [place] with worsening left hip pain. Found on imaging to have migration of the hip screw proximally into the retroperitoneum. [facility] surgery followed, patient transferred to [facility] given possible complexity of repeat procedure. Ultimately had hardware removal with conversion to total hip arthroplasty with orthopedics on 10/10. Marine ent tolerated the procedure well. Did require a drain for a few days after her procedure, was removed prior to discharge. Was given IV Ancef postoperatively while here, de-escalated to Duricef on discharge for 7-day course total. Postoperative pain was well controlled with as needed medications. Discharge back to her SNF in stable condition. See discharge diagnoses list above and medication adjustments below in med rec. The patient is discharged in improved and stable condition. Consults: IP CONSULT TO GENERAL SURGERY IP CONSULT TO VASCULAR SURGERY IP WOUND CARE NURSE CONSULT TO EVAL Discharge Instructions: Diet: Dietary Orders (From admission, onward) Start Ordered 10/11/22 1228 Adult diet Regular; 3 carb choices (45 gm/meal) Diet effective now Question Answer Comment Diet type Regular Carbohydrate restriction: 3 carb choices (45 gm/meal) 10/11/22 1229 10/05/22 1231 Supplement:AM Snack, PM Snack, HS Snack; Chocolate Ensure Plus Until discontinued Question Answer Comment Frequency AM Snack Frequency PM Snack Frequency HS Snack Select supplement: Chocolate Ensure Plus 10/05/22 1230 Activity: as tolerated Recommended Outpatient Tests: Disposition: Patient discharged in stable condition to Home. Greater than 31 minutes spent discharging the patient and coming up with patient discharge plan. Vitals: BP 108/83 Pulse 89 Temp (!) 35.8 C (96.4 F) (Temporal) Resp 18 Ht 5' 4 (1.626 m) Wt 150 lb (68 kg) SpO2 96% BMI 25.75 kg/m Pulse Ox: SpO2 Av % Min: 96 % Max: 96 % Supplemental O2: O2 Flow Rate (L/min): 3 L/min Physical Exam Constitutional: General: She is not in acute distress. Appearance: Normal appearance. She is normal weight. Cardiovascular: Rate and Rhythm: Normal rate and regular rhythm. Pulses: Normal pulses. Heart sounds: Normal heart sounds. Pulmonary: Effort: Pulmonary effort is normal. Breath sounds: Normal breath sounds. Abdominal: General: Abdomen is flat. Palpations: Abdomen is soft. Musculoskeletal: General: No swelling. Skin: General: Skin is warm and dry. Neurological: Mental Status: She is alert. LABS: Recent Labs 10/13/2245110/14/2251410/15/2245 NA 136 136 136 K 4.2 4.3 4.8 CL 99 102 101 CO2 29 29 28 BUN 14 14 17 CREATININE 0.55 0.58 0.56 GLUCOSE 103* 137* 154* CALCIUM 8.3* 8.3* 8.6 Recent Labs 10/13/2245110/14/2215 10/15/22 0046 WBC 14.1* 12.1* 13.6* RBC 3.25* 3.08* 3.09* HGB 9.5* 9.1* 9.0* HCT 29.8* 28.2* 28.0* MCV 91.7 91.4 90.8 MCH 29.2 29.5 29.3 [facility] 31.9* 32.3 32.2 RDW 15.0* 14.9* 15.0* PLT 247 261 301 MPV 7.9 8.0 8.0 Discharge Medications: Medication List START taking these medications cefadroxil 500 MG capsule Commonly known as: Duricef Take 1 capsule (500 mg) by mouth 2 times daily for 7 days. Begin taking for 7 days after discharge from the hospital enoxaparin 40 MG/0.4ML solution prefilled syringe Commonly known as: Lovenox Inject 0.4 mL (40 mg) under the skin daily. methocarbamol 500 MG tablet Commonly known as: Robaxin Take 1 tablet (500 mg) by mouth in the morning and 1 tablet (500 mg) at noon and 1 tablet (500 mg) before bedtime. Do all this for 1 day. CHANGE how you take these medications traMADol 50 MG tablet Commonly known as: Ultram Take 1 tablet (50 mg) by mouth every 8 hours as needed for moderate pain (4-6) for up to 1 day. What changed: how much to take when to take this reasons to take this CONTINUE taking these medications alendronate 70 MG tablet Commonly known as: Fosamax atorvastatin 20 MG tablet Commonly known as: Lipitor bisacodyl 10 MG suppository Commonly known as: Dulcolax busPIRone 15 MG tablet Commonly known as: Buspar carvedilol 3.125 MG tablet Commonly known as: Coreg ergocalciferol 1.25 MG (18161 UT) capsule Commonly known as: Vitamin D-2 fexofenadine 180 MG tablet Commonly known as: Roc FLUoxetine 20 MG capsule Commonly known as: PROzac glipiZIDE 10 MG tablet Commonly known as: Glucotrol omeprazole [address] capsule Commonly known as: PriLOSEC oxybutynin XL 10 MG 24 hr tablet Commonly known as: Ditropan-XL oxyCODONE 5 MG immediate release tablet Commonly known as: Roxicodone sodium phosphate 7-19 GM/118ML enema enema Commonly known as: Fleets Tylenol Extra Strength 500 MG tablet Generic drug: acetaminophen STOP taking these medications celecoxib 200 MG capsule Commonly known as: CeleBREX lisinopril 20 MG tablet Where to Get Your Medications You can get these medications from any pharmacy Bring a paper prescription for each of these medications cefadroxil 500 MG capsule Information about where to get these medications is not yet available Ask your nurse or doctor about these medications enoxaparin 40 MG/0.4ML solution prefilled syringe methocarbamol 500 MG tablet traMADol 50 MG tablet Recommended Follow-up: Phyllis Guevara PA-C [facility] [address] [place] [address] Go on 11/06/2022 1:30PM, Wound check and left hip post-operative visit Cici Calderon [address] [place] [id number] Complexity of Follow up: [] Moderate Complexity: follow up within 7-14 calendar days (21376) [x] Severe Complexity: follow up within 7 calendar days (88543) Follow up Testing, Pending results or Referrals at Transitional Care Visit: [x] yes [] no Instructions to MA: Please call patient on day after discharge (must document patient contacted within 2 business days of discharge). Follow up questions for MA: 1. Did you get medications filled and taking them as instructed from discharge? 2. Are you following your discharge instructions from your hospital stay? 3. Please confirm patient is scheduled for a follow up appointment within the above time frame. Signed: Miguel Chapman Division of Hospitalist Medicine Inpatient Medical Services/[facility] 10/15/2022, 3:27 PM documented in this [facility]09-03-2023 History of Present illness Narrative* Miguel Chapman - 10/15/2022 1:58 PM EDT Images from the original note were not included. Hospitalist Progress Note 10/15/2022 [phone]: Please secure chat me for patient care issues. [phone]: Please secure chat [facility] night Hospitalist for any issues. Subjective: Admit Date: 10/03/2022 PCP: CICI CALDERON Room#: H-6127/H-6127 A Interval History: No acute events overnight. Patient seen at bedside this morning. Was sleeping on my arrival to the room, remained fairly fatigued during my interview. Conversing normally, denies any acute pain or discomfort. No other acute concerns. Adult diet Regular; 3 carb choices (45 gm/meal) 24HR INTAKE/OUTPUT: No intake or output data in the 24 hours ending 10/15/22 1358 Past Medical History: Past Medical History: Diagnosis Date Bipolar 1 disorder (HCC) Diabetes mellitus (HCC) Hyperlipidemia Hypertension Neuropathy LABS: CBC: Recent Labs 10/13/2245110/14/22 0515 10/15/22 0046 WBC 14.1* 12.1* 13.6* RBC 3.25* 3.08* 3.09* HGB 9.5* 9.1* 9.0* HCT 29.8* 28.2* 28.0* MCV 91.7 91.4 90.8 RDW 15.0* 14.9* 15.0* PLT 247 261 301 BMP: Recent Labs 10/13/2245110/14/22 0515 10/15/22 0046 NA 136 136 136 K 4.2 4.3 4.8 CL 99 102 101 CO2 29 29 28 BUN 14 14 17 CREATININE 0.55 0.58 0.56 GLUCOSE 103* 137* 154* CALCIUM 8.3* 8.3* 8.6 ANIONGAP 8 6 7 LIVER PROFILE:No results for input(s): AST, ALT, BILITOT, ALKPHOS, PROT in the last 72 hours. No lab exists for component: LABALBU PT/INR: No results for input(s): PROTIME, INR in the last 72 hours. CARDIAC ENZYMES: No results for input(s): TROPONINI in the last 72 hours. Procalcitonin: No results found for: PROCAL COVID-19 PCR: No results for input(s): COVID19 in the last 72 hours. Objective: Vitals: BP 108/83 Pulse 89 Temp (!) 35.8 C (96.4 F) (Temporal) Resp 18 Ht 5' 4 (1.626 m) Wt 150 lb (68 kg) SpO2 96% BMI 25.75 kg/m Pulse Ox: SpO2 Av % Min: 96 % Max: 96 % Physical Exam Constitutional: General: She is not in acute distress. Appearance: Normal appearance. She is normal weight. Cardiovascular: Rate and Rhythm: Normal rate and regular rhythm. Pulses: Normal pulses. Heart sounds: Normal heart sounds. Pulmonary: Effort: Pulmonary effort is normal. Breath sounds: Normal breath sounds. Abdominal: General: Abdomen is flat. Palpations: Abdomen is soft. Musculoskeletal: General: No swelling. Skin: General: Skin is warm and dry. Neurological: Mental Status: She is alert. Medications: atorvastatin, 20 mg, Oral, Daily busPIRone, 15 mg, Oral, BID carvedilol, 3.125 mg, Oral, BID WC enoxaparin, 40 mg, SubCUTAneous, Daily fexofenadine, 180 mg, Oral, Daily FLUoxetine, 20 mg, Oral, Daily gabapentin, 200 mg, Oral, BID glipiZIDE, 10 mg, Oral, qAM AC insulin lispro, 0-12 Units, SubCUTAneous, 4x daily AC & HS And insulin lispro, 0-12 Units, SubCUTAneous, Nightly methocarbamol, 500 mg, Oral, 3 times per day pantoprazole, 40 mg, Oral, qAM AC Assessment and Plan Previous left hip fracture s/p fixation with hardware failure-orthopedics following, s/p hardware removal with conversion to COSTA. Patient tolerated procedure well. Continue as needed pain medications. PT/OT/case management following. Drain now removed, switched from Ancef to Duricef for 7-day course total. Plan for discharge back to SNF today. Hyperkalemia, resolved Hypertension-restarted Coreg 10/14, continue to hold lisinopril. Monitor BP. We will continue to holdlisinopril at discharge. Type 2 diabetes-continue sliding scale insulin, glipizide and diabetic diet. Continue home glipizide on discharge. Neuropathy-continue gabapentin and as needed pain medications as above. -DVT prophylaxis: [x] Lovenox [] Heparin [] SCDs [x] Encourage ambulation [] Already on Anticoagulation CODE STATUS: Full code Anticipated Discharge - Date -10/15 - Location - Skilled Facility - Pending the following -stable for discharge today Total time spent (which include face to face and non face to face encounters) : 35 minutes Extended Emergency Contact Information Primary Emergency Contact: Joo Bernstein Relation: None Miguel Chapman Division of Hospitalist Medicine [facility] PAGER: Epic chat * Miguel Chapman - 10/14/2022 8:52 PM EDT Images from the original note were not included. Hospitalist Progress Note 10/14/[id number]: Please secure chat me for patient care issues. [phone]: Please secure chat [facility] Hospitalist for any issues. Subjective: Admit Date: 10/03/2022 PCP: CICI CALDERON Room#: H-6127/H-6127 A Interval History: No acute events overnight. Patient seen at bedside. Sitting comfortably in bedside chair, conversing normally, no acute distress. Patient feels fairly well today. Denies any acute pain or discomfort at this point. Has been up and moving around with assistance fairly well. Denies any fevers or chills. No other acute concerns. Adult diet Regular; 3 carb choices (45 gm/meal) 24HR INTAKE/OUTPUT: Intake/Output Summary (Last 24 hours) at 10/14/20222051 Last data filed at 10/14/2022 0500 Gross per 24 hour Intake -- Output 0 ml Net 0 ml Past Medical History: Past Medical History: Diagnosis Date Bipolar 1 disorder (HCC) Diabetes mellitus (HCC) Hyperlipidemia Hypertension Neuropathy LABS: CBC: Recent Labs 10/12/2210810/13/2245110/14/22 0515 WBC 15.3* 14.1* 12.1* RBC 3.05* 3.25* 3.08* HGB 9.1* 9.5* 9.1* HCT 28.0* 29.8* 28.2* MCV 91.7 91.7 91.4 RDW 14.8* 15.0* 14.9* PLT 233 247 261 BMP: Recent Labs 10/12/2210810/13/2245110/14/22 0515 NA 140 136 136 K 4.4 4.2 4.3 CL 101 99 102 CO2 27 29 29 BUN 17 14 14 CREATININE 0.64 0.55 0.58 GLUCOSE 212* 103* 137* CALCIUM 8.6 8.3* 8.3* ANIONGAP 12 8 6 LIVER PROFILE:No results for input(s): AST, ALT, BILITOT, ALKPHOS, PROT in the last 72 hours. No lab exists for component: LABALBU PT/INR: No results for input(s): PROTIME, INR in the last 72 hours. CARDIAC ENZYMES: No results for input(s): TROPONINI in the last 72 hours. Procalcitonin: No results found for: PROCAL COVID-19 PCR: No results for input(s): COVID19 in the last 72 hours. Objective: Vitals: BP 106/67 Pulse 98 Temp 36.1 C (97 F) (Temporal) Resp 18 Ht 5' 4 (1.626 m) Wt 150 lb (68 kg) SpO2 96% BMI 25.75 kg/m Pulse Ox: SpO2 Av.5 % Min: 96 % Max: 97 % Physical Exam Constitutional: General: She is not in acute distress. Appearance: Normal appearance. She is normal weight. Cardiovascular: Rate and Rhythm: Normal rate and regular rhythm. Pulses: Normal pulses. Heart sounds: Normal heart sounds. Pulmonary: Effort: Pulmonary effort is normal. Breath sounds: Normal breath sounds. Abdominal: General: Abdomen is flat. Palpations: Abdomen is soft. Musculoskeletal: General: No swelling. Skin: General: Skin is warm and dry. Neurological: Mental Status: She is alert. Medications: atorvastatin, 20 mg, Oral, Daily busPIRone, 15 mg, Oral, BID carvedilol, 3.125 mg, Oral, BID WC enoxaparin, 40 mg, SubCUTAneous, Daily fexofenadine, 180 mg, Oral, Daily FLUoxetine, 20 mg, Oral, Daily gabapentin, 200 mg, Oral, BID glipiZIDE, 10 mg, Oral, qAM AC insulin lispro, 0-12 Units, SubCUTAneous, 4x daily AC & HS And insulin lispro, 0-12 Units, SubCUTAneous, Nightly [Held by provider] lisinopril, 5 mg, Oral, Daily methocarbamol, 500 mg, Oral, 3 times per day pantoprazole, 40 mg, Oral, qAM AC Assessment and Plan Previous left hip fracture s/p fixation with hardware failure-orthopedics following, s/p hardware removal with conversion to COSTA. Patient tolerated procedure well. Continue as needed pain medications. PT/OT/case management following. Planning for discharge back to SNF when medically stable. Drain now removed, switched from Ancef to Duricef for 7-day course total. Hyperkalemia, resolved Hypertension-restarted Coreg 10/14, continue to hold lisinopril. Monitor BP. Type 2 diabetes-continue sliding scale insulin and diabetic diet. Neuropathy-continue gabapentin and as needed pain medications as above. -DVT prophylaxis: [] Lovenox [] Heparin [] SCDs [x] Encourage ambulation [] Already on Anticoagulation CODE STATUS: Full code Anticipated Discharge - Date -10/15 - Location - Skilled Facility - Pending the following -improvement in medical condition Total time spent (which include face to face and non face to face encounters) : 35 minutes Extended Emergency Contact Information Primary Emergency Contact: Joo Bernstein Relation: None Miguel Chapman Division of Hospitalist Medicine [facility] PAGER: Epic chat * Jaziel Rodírguez, PT - 10/14/2022 10:49 AM EDT Physical Therapy Facility/Department: Physical Therapy Daily Treatment Note NAME: Donna Marsh : 1955 Date of Service: 10/14/2022 Discharge Recommendations: Care Home Facility PT Equipment Recommendations Equipment Needed: No Other: tbd Assessment Requires PT Follow-Up: Yes Assessment: Patient continues to require moderate to maximal assistance with all bed mobility and transfers. Maximal assistance for stand pivot transfer with theapist in front of patient from bed to chair. She relied heavily on therapist to maintain weight-bearing restriction but was able to complete transfer. KI on throughout session and left lower extremity elevated once in chair. Very minimal bleeding noted from PIV at end of session and nursing notified. Continue to recommend SNF level therapy at discharge. Performance Deficits/Impairments: Decreased functional mobility , Decreased ADL status, Decreased strength, Decreased balance, Increased pain, Decreased posture, Decreased endurance, Decreased ROM Decision Making: Medium Complexity Patient Diagnosis(es): The primary encounter diagnosis was Complication of internal hip prosthesis,initial encounter ([facility]). A diagnosis of Failed orthopedic implant, initial encounter ([facility]) was alsopertinent to this visit. has a past medical history of Bipolar 1 disorder (HCC), Diabetes mellitus (HCC), Hyperlipidemia, Hypertension, and Neuropathy. has a past surgical history that includes Hysterectomy; Tonsillectomy; Carpal tunnel release; and orif distal radius fracture (historical) (Left, 08/06/2022). Restrictions Restrictions/Precautions Restrictions/Precautions: General Precautions, Fall Risk, Weight Bearing, Surgical Protocols Required Braces or Orthoses?: Yes Lower Extremity Weight Bearing Restrictions Left Lower Extremity Weight Bearing: Partial Weight Bearing Partial Weight Bearing Percentage Or Pounds: 25% WB in KI at all times Required Braces or Orthoses Left Lower Extremity Brace: Knee Immobilizer Position Activity Restriction Other position/activity restrictions: PIV, purewick Vision/Hearing Subjective General Chart Reviewed: Yes Patient Assessed for Rehabilitation Services: Yes Additional Pertinent Hx: recent L hip nailing Response To Previous Treatment: Patient with no complaints from previous session. Family / Caregiver Present: No Diagnosis: failure of hip prosthesis, s/p L COSTA with hardware removal 10/10 Follows Commands: Within Functional Limits Subjective Subjective: Patient in bed upon entering room and agreeable to therapy. Patient Stated Goal: to get OOB Cognition/Orientation Overall Cognitive Status: WFL Overall Orientation Status: Within Functional Limits Objective Bed mobility Rolling to Right: Moderate assistance Supine to Sit: Moderate assistance Scooting: Moderate assistance Comment: Increased time to complete transfer with moderate assisance to navigate LLE to EOB. She continued to demonstrate retrograde leaning along with right trunk lean with sitting at EOB. Required minimal assistance to stay in seated position Transfers Sit to Stand: Moderate Assistance Stand to sit: Moderate Assistance Stand Pivot Transfers: Maximum Assistance Comment: 3x trials of sitting to standing from EOB. Heavy cueing to keep only 25% of WB throughout LLE with stand pivot transfer from bed to chair. Required moderate to max assistance to scoot in proper position in chair. Ambulation Ambulation: No Plan Times per Week: 5-7x Plan Weeks: 4 wks Current Treatment Recommendations: Strengthening, Balance Training, ROM, Gait Training, Functional Mobility Training, Transfer Training, ADL/Self-care Training, Endurance Training, Equipment Evaluation, Education, & procurement, Patient/Caregiver Education & Training, Safety Education &Training, Home Exercise Program Plan Comment: Cont PT POC Safety Safety Devices Safety Devices in Place: Yes Type of Devices: All fall risk precautions in place, Call light within reach, Heels elevated for pressure relief, Patient at risk for falls, Gait belt, Left in chair, Nurse notified Outcomes Score AM-PAC Score AM-PAC Inpatient Mobility Raw Score (No Stairs) : 9 Goals Encounter Problems Encounter Problems (Active) Balance Patient will maintain dynamic sitting balance for 5 minutes with CGA in order to demonstrate improved postural control and prepare for out of bed mobility. (Not Addressed) Start: 10/11/22 Expected End: 11/08/22 Mobility Patient will ambulate 15 feet with min assist and rolling walker in order to improve safety and independence with mobility. (Not Addressed) Start: 10/11/22 Expected End: 11/08/22 Pain - Adult Safety Patient will recall/demonstrate weight bearing and/or ROM restrictions with all functional mobilityin order to promote healing and safety with functional tasks. (Progressing) Start: 10/11/22 Expected End: 11/08/22 Transfers Patient will perform bed mobility with supervision in order to improve independence and prepare forout of bed mobility. (Progressing) Start: 10/11/22 Expected End: 11/08/22 Patient will complete functional transfer with least restrictive device with CGA in order to prepare for ambulation. (Progressing) Start: 10/11/22 Expected End: 11/08/22 Education Education Given To: Patient Education Provided: General Safety, Plan of Care, Discharge recommendations, Weight-bearing Education, Precautions, Functional Mobility Training, Transfer Training, PT Role Education Method: Verbal, Demonstration Barriers to Learning: None Education Outcome: Verbalized understanding, Continued education needed Therapy Time Individual Co-treatment Time In 947 Time Out 1028 Minutes 40 Timed Code Treatment Minutes: 40 Minutes (FA x 3) Jaziel Rodríguez PT This therapist was wearing an appropriate mask, goggles, and gloves for entire patient encounter. * Yana Gonzales MD - 10/14/2022 7:47 AM EDT Brief Orthopaedic Surgery Progress Note Examined patient at bedside for drain removal. Patient is doing well with no new complaints from last exam. The drain was removed and the drain site was reinforced with necessary bandaging. Very minimal serosanguinous drainage out of the site was noted. The patient tolerated this well. Objective: LLE: Dressing C/D/I, drain pulled KI in place Motor: +quad, TA, EHL, GSC SILT S/S/Sp/Dp/T Palp DP pulse NTTP BL calves Assessment: 66 y.o. female s/p Left Hip removal of hardware with conversion to COSTA on 10/10 Plan: No plans for further surgical intervention 25% WB LLE in KI KI at all times, please check skin around knee immobilizer every shift for wound breakdown Femoral head sent for permanent path Drain removed and Ancef discontinued 10/14 Transition to duricef for 7 days at discharge Neurovascular checks Lovenox 40mg Daily x30 days PT/OT Pain and medical management per primary Follow-up with Dr. Mares in 4 weeks for recheck Ortho to follow peripherally for path Charity Espitia M.D. Orthopaedic Surgery PGY-2 * Terrie Hernandez RD - 10/13/2022 3:12 PM EDT Nutrition Assessment Type and Reason for Visit: Reassess Nutrition Recommendations/Plan: Continue diet + ONS. Recommend record po intake in I/O flowsheet to monitor. RD will follow weekly. Malnutrition Assessment: Malnutrition Status: Moderate malnutrition (per RD 10/05) Context: Chronic Illness Findings of the 6 clinical characteristics of malnutrition: Energy Intake: 75% or less estimated energy requirements for 1 month or longer Weight Loss: Unable to assess (no weight history in EPIC to review, pt states she was 175# on the day of her fall 08/05/22 and now CBW stated 145#, attempted to obtain bedscale weight however scale reading 'err3') Body Fat Loss: Mild body fat loss Orbital, Buccal region Muscle Mass Loss: Mild muscle mass loss Clavicles (pectoralis & deltoids), Temples (temporalis) Fluid Accumulation: No significant fluid accumulation [employer] Strength: Not Performed Nutrition Assessment: S/p Left Hip removal of hardware with conversion to COSTA 10/10/22. Labs: Glucose elevated 103/109/133, Calcium low 8.3. Medications reviewed. 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 Regular/3 carb choices diet + Ensure Plus TID between meals. Per nursing flowsheets, 76-99% bfst consumed today. Estimated Daily Nutrient Needs: Energy Requirements Based On: Kcal/kg Weight Used for Energy Requirements: [place] Weight for Energy Calculation (kg): 54.5 kg Total Energy Requirements (kcals/day): 1363-1635kcals/day Weight Used for Protein Requirements: [place] Weight in Kg Used for Protein Requirements: 54.5 kg Estimated Total Protein (g/day): 55-65gm pro/day Estimated Daily Total Fluid (ml/day): per MD recommendations Nutrition Related Findings: non-pitting LLE, Raji 16, BM 10/10, GI WDL Wound Type: Surgical Incision (L hip incision, R lower abd chronic non-healing non-pressure ulcer, umbilicus abrasion) Current Nutrition Therapies: Adult diet Regular; 3 carb choices (45 gm/meal) Current Oral Intake Average Meal Intake: 76-100% (bfst today) Average Supplements Intake: Unable to assess Anthropometric Measures: Height: 162.6 cm (5' 4) Current Body Weight: (no current wt) Weight Source: Stated Admission Body Weight: 65.8 kg (145 lb) (stated 10/03) Usual Body Weight: 79.4 kg (175 lb) (pt states she was 175# 'on August 05 the day of my fall', there is no weight history in chart for review) % Weight Change (Calculated): -17.1 [place] Body Weight (lbs) (Calculated): 120 lbs [place] Body Weight (Kg) (Calculated): 55 kg % [place] Body Weight (Calculated): 120.8 % BMI (kg/m2) (Calculated): 24.9 Weight Adjustment For: No Adjustment BMI Categories: Normal Weight (BMI 22.0 to 24.9) age over 65 Nutrition Diagnosis: Moderate malnutrition, In context of chronic illness related to (s/p ground- level fall- peritrochanteric L hip fx- treated with a short cephalomedullary nail on 08/06/22, post op course has been complicated- now admitted due to hardware failure and fracture collapse, appetite decreased, in and out of hospital/SNF) as evidenced by (<75% energy intake compared to estimated energy needs for >/=1 month, mild muscle mass depletion to temporal/clavicle/deltoid regions and mild subcutaneous fat wasting orbital/buccal regions) Nutrition Interventions: Nutrition Education/Counseling: No recommendation at this time Coordination of Nutrition Care: Continue to monitor while inpatient Goals: Previous Goal Met: Progressing toward Goal(s) Goals: PO intake 75% or greater Nutrition Monitoring and Evaluation: Behavioral-Environmental Outcomes: None Identified Food/Nutrient Intake Outcomes: Food and Nutrient Intake, Supplement Intake Physical Signs/Symptoms Outcomes: Biochemical Data, GI Status, Fluid Status or Edema, Nutrition Focused Physical Findings, Skin, Weight Discharge Planning: Continue Oral Nutrition Supplement Terrie Hernandez RD Contact: [employer] chat or *[phone] * Gayle Herbert MD - 10/13/2022 1:21 PM EDT Images from the original note were not included. Hospitalist Progress Note 10/13/2022 Subjective: Admit Date: 10/03/2022 PCP: CICI CALDERON Room#: H-6127/[id number] A Interval History: Donna is a 66 year old female, who presents to the ED with left hip pain s/p ORIF in July. She was initially admitted to [facility] for evaluation of possible hardware failure. Patient was transferred here for surgical intervention which is planned on the . There is concern for migration of screw proximally into the retroperitoneum and vascular surgery is on standby. She states that she has not ambulated much since the surgery in July. 10/05/2022: Patient alert, chart reviewed, denies any headache, dizziness, chest pain. Prior to surgery she has been ambulatory and denies any rate limiting factors including any exertional chest painor shortness of breath. She is a non- smoker. Pt had Left Hip removal of hardware with conversion toTHA 10/06- pt lying on bed, denies any complaints at this time, no acute issues overnt. 10/07- pt reports pain in her bilateral lower ext due to neuropathy, no other complaints, no acute issues overnt. 10/08- pt denies any complaints at this time, waiting for surgery on Sunday, no acute issues overnt. 10/09- pt lying in bed, denies any complaints at this time, plan for surgery in am. 10/10- pt reports feeling anxious, scheduled for procedure today, no acute issues overnt, family at bedside. 10/11- post op day1, pt denies any complaints at this time except pain at surgical site, no other complaints, drain in place, draining blood. No acute issues overnt. 10/12- denies any complaints, drain in place with bloody discharge. 10/13- pt sitting on recliner, drain in place, bloody discharge decreased since yesterday, denies anycomplaints, no acute issues overnt. Objective: Vitals: BP 128/72 (BP Location: Right arm, Patient Position: Lying) Pulse 107 Temp 36.2 C (97.2F) (Temporal) Resp 16 Ht 5' 4 (1.626 m) Wt 144 lb 10 oz (65.6 kg) SpO2 92% BMI 24.82 kg/m Pulse Ox: SpO2 Av % Min: 92 % Max: 98 % Supplemental O2: O2 Flow Rate (L/min): 3 L/min Pertinent physical exam: Patient is alert, awake, oriented x 3 No pallor, Icterus No JVD Heart S1 S2 No murmurs Lungs clear to auscultation Abdomen soft non distended no organomegaly No pedal edema, scd's in place, no cyanosis No focal neurological deficits Assessment Acute, acute on chronic, unstable/uncontrolled chronic problems: Left hip pain with hardware failure- s/p hardware removal with conversion to COSTA Migrated screw into the retroperitoneum Hyperkalemia- resolved Type 2 DM with hyperglycemia Stable chronic problems affecting care, new non-acute diagnoses: Hypertension DM2 Neuropathy Bipolar disorder. MDM/Plan Post op day 3, drain in place, appreciate ortho recs, ptot recommending snf Continue ancef until drain out and switch to duricef for 7 days. Potassium improved Lisinopril and coreg on hold Monitor blood sugars closely, on ssi, sugars running high, on diabetic diet Continue sliding scale coverage Gabapentin helping with neuropathy, prn pain meds for surgical site pain - DVT prophylaxis: lovenox t Advance Directive: Full Code Anticipated Discharge - Date - TBD - Location -TBD - Pending the following -clinical course Adult diet Regular; 3 carb choices (45 gm/meal) 24HR INTAKE/OUTPUT: Intake/Output Summary (Last 24 hours) at 10/13/2022 1321 Last data filed at 10/13/2022 0925 Gross per 24 hour Intake 450 ml Output 1660 ml Net -1210 ml LABS: CBC: Recent Labs 10/11/22 0125 10/12/22 0109 10/13/22 0452 WBC 14.0* 15.3* 14.1* RBC 3.24* 3.05* 3.25* HGB 9.7* 9.1* 9.5* HCT 29.5* 28.0* 29.8* MCV 91.1 91.7 91.7 RDW 14.8* 14.8* 15.0* PLT 207 233 247 BMP: Recent Labs 10/11/22 0125 10/12/22 0109 10/13/22 0452 NA 135 140 136 K 5.0 4.4 4.2 CL 99 101 99 CO2 20* 27 29 BUN 20* 17 14 CREATININE 0.62 0.64 0.55 GLUCOSE 323* 212* 103* CALCIUM 9.0 8.6 8.3* ANIONGAP 15* 12 8 LIVER PROFILE: No results for input(s): AST, ALT, BILITOT, ALKPHOS, PROT in the last 72 hours. No lab exists for component: LABALBU PT/INR: No results for input(s): PROTIME, INR in the last 72 hours. CARDIAC ENZYMES: No results for input(s): TROPONINI in the last 72 hours. Procalcitonin: No results found for: PROCAL Medications: Scheduled atorvastatin, 20 mg, Oral, Daily busPIRone, 15 mg, Oral, BID [Held by provider] carvedilol, 3.125 mg, Oral, BID WC ceFAZolin, 2,000 mg, IntraVENous, q8h enoxaparin, 40 mg, SubCUTAneous, Daily fexofenadine, 180 mg, Oral, Daily FLUoxetine, 20 mg, Oral, Daily gabapentin, 200 mg, Oral, BID glipiZIDE, 10 mg, Oral, qAM AC insulin lispro, 0-12 Units, SubCUTAneous, 4x daily AC & HS And insulin lispro, 0-12 Units, SubCUTAneous, Nightly [Held by provider] lisinopril, 5 mg, Oral, Daily methocarbamol, 500 mg, Oral, 3 times per day pantoprazole, 40 mg, Oral, qAM AC PRN PRN medications: acetaminophen OR acetaminophen, dextrose, dextrose, glucagon (rDNA), glucose, morphine sulfate, ondansetron ODT OR ondansetron, polyethylene glycol (PEG) 3350, traMADol Extended Emergency Contact Information Primary Emergency Contact: Joo Bernstein Relation: None Gayle Herbert MD Division of Hospitalist Medicine [facility] * Sharita Freedman, BLUEPRINT ENGINEER - 10/13/2022 11:57 AM EDT Physical Therapy Facility/Department: Physical Therapy Daily Treatment Note NAME: Donna Marsh : 1955 Date of Service: 10/13/2022 Discharge Recommendations: Care Home Facility PT Equipment Recommendations Equipment Needed: No Other: tbd Assessment Requires PT Follow-Up: Yes Assessment: Pt limited by decreased functional strength/endurance and impaired balance d/t partial WB LLE + KI. Pt required Mod x1 overall to complete sitting EOB. Pt able to stand w/ BLUEPRINT ENGINEER in front today and pivot to chair; Max x1 w/ intermittent R knee blocking required. Pt encouraged to be up in chair for meals and to perform BLE ROM Ex on own during day. Pt would benefit from ongoing SNF level therapy post Disch. Performance Deficits/Impairments: Decreased functional mobility , Decreased ADL status, Decreased strength, Decreased balance, Increased pain, Decreased posture, Decreased endurance, Decreased ROM Decision Making: Medium Complexity Patient Diagnosis(es): The primary encounter diagnosis was Complication of internal hip prosthesis,initial encounter ([facility]). A diagnosis of Failed orthopedic implant, initial encounter ([facility]) was alsopertinent to this visit. has a past medical history of Bipolar 1 disorder (HCC), Diabetes mellitus (HCC), Hyperlipidemia, Hypertension, and Neuropathy. has a past surgical history that includes Hysterectomy; Tonsillectomy; Carpal tunnel release; and orif distal radius fracture (historical) (Left, 08/06/2022). Restrictions Restrictions/Precautions Restrictions/Precautions: General Precautions, Fall Risk, Weight Bearing, Surgical Protocols Required Braces or Orthoses?: Yes Lower Extremity Weight Bearing Restrictions Left Lower Extremity Weight Bearing: Partial Weight Bearing Partial Weight Bearing Percentage Or Pounds: 25% WB in KI at all times Required Braces or Orthoses Left Lower Extremity Brace: Knee Immobilizer Position Activity Restriction Other position/activity restrictions: PIV, purewick, left hip drain Vision/Hearing Subjective General Chart Reviewed: Yes Patient Assessed for Rehabilitation Services: Yes Additional Pertinent Hx: recent L hip nailing Response To Previous Treatment: Patient with no complaints from previous session. Family / Caregiver Present: No Diagnosis: failure of hip prosthesis, s/p L COSTA with hardware removal 10/10 Follows Commands: Within Functional Limits General Comment Comments: Pt can be hyperverbal at times, but re-directable. Subjective Subjective: Pt in bed, agreeable to PT. nsg cleared pt for PT. LLE KI donned upon BLUEPRINT ENGINEER arrival. Pt states increased LLE pain when LE dangles Patient Stated Goal: to get OOB Pain Assessment Pain Assessment: (Pt reported no sharp increased pain during PT Rx; IP x1 to L hip post PT Rx.) Cognition/Orientation Overall Cognitive Status: WFL Arousal/Alertness: Appropriate responses to stimuli Following Commands: Follows one step commands with increased time, Follows one step commands with repetition Attention Span: Attends with cues to redirect Safety Judgement: Decreased awareness of need for assistance, Decreased awareness of need for safety Problem Solving: Assistance required to generate solutions, Assistance required to implement solutions, Assistance required to identify errors made Insights: Decreased awareness of deficits Initiation: Requires cues for some Sequencing: Requires cues for some Overall Orientation Status: Within Functional Limits Objective Bed mobility Rolling to Right: Minimal assistance Supine to Sit: Moderate assistance Sit to Supine: Unable to assess Scooting: Moderate assistance (to EOB) Comment: HOB elevated; Increased time to compelete. Pt required assist to move LLE to EOB. Retrograde leaning noted during and after torso elevation. Pt reports multiple back vertebrae fused Transfers Sit to Stand: Moderate Assistance Stand to sit: Moderate Assistance Stand Pivot Transfers: Maximum Assistance (BLUEPRINT ENGINEER in front w/ R knee blocking at times) Comment: x2 from EOB; BLUEPRINT ENGINEER in front to improve forward translation d/t retrograde w/ static sitting Ambulation Ambulation: No Balance Posture: Poor Sitting - Static: Poor Sitting - Dynamic: Poor Standing - Static: Poor Standing - Dynamic: Poor Comments: Pt sat EOB ~ 10 min w/ cues to maintain R foot to floor contact w/ anterior weight shifting; able to progress to UE reaching to midline target. Min x1 for reaching balance Exercises Straight Leg Raise: x8 rep ea LE; AAROM LLE Quad Sets: x5 rep LLE w/ 3sec hold Heelslides: x5 rep RLE AROM Gluteal Sets: x7 rep w/ 3sec hold Hip Extension/Leg Presses: x5 rep RLE w/ light manual resist in extn. Knee Long Arc Quad: x8 rep RLE Ankle Pumps: x15 rep BLE Comments: Pt encouraged to perform on own as able during day; Pt educated how to use flat sheet forself AAROM Plan Times per Week: 5-7x Plan Weeks: 4 wks Specific Instructions for Next Treatment: functional strength/endurance training. Current Treatment Recommendations: Strengthening, Balance Training, ROM, Gait Training, Functional Mobility Training, Transfer Training, ADL/Self-care Training, Endurance Training, Equipment Evaluation, Education, & procurement, Patient/Caregiver Education & Training, Safety Education &Training, Home Exercise Program Plan Comment: Cont PT POC Safety Safety Devices Safety Devices in Place: Yes Type of Devices: All fall risk precautions in place, Call light within reach, Heels elevated for pressure relief, Patient at risk for falls, Chair alarm in place, Gait belt, Left in chair, Nurse notified Outcomes Score AM-PAC Score AM-PAC Inpatient Mobility Raw Score (No Stairs) : 10 Goals Encounter Problems Encounter Problems (Active) Balance Patient will maintain dynamic sitting balance for 5 minutes with CGA in order to demonstrate improved postural control and prepare for out of bed mobility. (Progressing) Start: 10/11/22 Expected End: 11/08/22 Mobility Patient will ambulate 15 feet with min assist and rolling walker in order to improve safety and independence with mobility. (Not Progressing) Start: 10/11/22 Expected End: 11/08/22 Pain - Adult Safety Patient will recall/demonstrate weight bearing and/or ROM restrictions with all functional mobilityin order to promote healing and safety with functional tasks. (Progressing) Start: 10/11/22 Expected End: 11/08/22 Transfers Patient will perform bed mobility with supervision in order to improve independence and prepare forout of bed mobility. (Progressing) Start: 10/11/22 Expected End: 11/08/22 Patient will complete functional transfer with least restrictive device with CGA in order to prepare for ambulation. (Progressing) Start: 10/11/22 Expected End: 11/08/22 Education Education Given To: Patient Education Provided: General Safety, Plan of Care, Discharge recommendations, Weight-bearing Education, Precautions, Home Exercise Program, Pressure Relief, Functional Mobility Training, Transfer Training, Energy Conservation Education Provided Comments: KI use, 25% WB; up to chair for meals; up to BSC w/ assist Education Method: Verbal, Teach Back, Demonstration Barriers to Learning: Cognition Education Outcome: Verbalized understanding, Continued education needed Therapy Time Individual Co-treatment Time In 1037 Time Out 1116 Minutes 39 Timed Code Treatment Minutes: 39 Minutes (FA x2; TP x1) Sharita Freedman PTA * Roseanne Ewing PTA - 10/12/2022 5:06 PM EDT Physical Therapy Facility/Department: Physical Therapy Daily Treatment Note NAME: Donna Marsh : 1955 Date of Service: 10/12/2022 Discharge Recommendations: Care Home Facility PT Equipment Recommendations Equipment Needed: No Assessment Requires PT Follow-Up: Yes Assessment: easily distracted. did well with EOB. decreased midline, UE weakness. rec skilled PT Performance Deficits/Impairments: Decreased functional mobility , Decreased ADL status, Decreased strength, Decreased balance, Increased pain, Decreased posture, Decreased endurance, Decreased ROM Restrictions Restrictions/Precautions Restrictions/Precautions: General Precautions, Fall Risk, Weight Bearing, Surgical Protocols Required Braces or Orthoses?: Yes Lower Extremity Weight Bearing Restrictions Left Lower Extremity Weight Bearing: Partial Weight Bearing Partial Weight Bearing Percentage Or Pounds: 25% WB in KI at all times Required Braces or Orthoses Left Lower Extremity Brace: Knee Immobilizer Position Activity Restriction Other position/activity restrictions: PIV, purewick, left hip drain Subjective General Chart Reviewed: Yes Patient Assessed for Rehabilitation Services: Yes Additional Pertinent Hx: recent L hip nailing Response To Previous Treatment: Not applicable Family / Caregiver Present: No Diagnosis: failure of hip prosthesis, s/p L COSTA with hardware removal 10/10 Follows Commands: Within Functional Limits Subjective Subjective: hyperverbal. agree to PT. states she has not walked for several months. states her footcan not hang down, causes spasms (left) Patient Stated Goal: to get OOB Pain Assessment Pain Type: Acute pain, Surgical pain Pain Location: Hip Pain Orientation: Left Cognition/Orientation Arousal/Alertness: Appropriate responses to stimuli Following Commands: Follows one step commands with increased time Attention Span: Attends with cues to redirect Initiation: Requires cues for some Sequencing: Requires cues for some Overall Orientation Status: Within Functional Limits Objective Bed mobility Rolling to Left: Minimal assistance Rolling to Right: Minimal assistance Supine to Sit: Moderate assistance Sit to Supine: Moderate assistance Scooting: Moderate assistance Comment: bedrail, assist for LLE and trunk elevation Balance Comments: EOB min>supervision with UE support. LOB retro and right Exercises Comments: BLE AROM ankle pump, glut sets. LLE AAROM hip flex, abduction/adduction. (posterior approach, complied with posterior precautions) Plan Times per Week: 5-7x Plan Weeks: 4 wks Current Treatment Recommendations: Strengthening, Balance Training, ROM, Gait Training, Functional Mobility Training, Transfer Training, ADL/Self-care Training, Endurance Training, Equipment Evaluation, Education, & procurement, Patient/Caregiver Education & Training, Safety Education &Training, Home Exercise Program Safety Safety Devices Type of Devices: Call light within reach, Left in bed, No alarms engaged upon entry into room AM-PAC Score AM-PAC Inpatient Mobility Raw Score (No Stairs) : 10 Goals Encounter Problems Encounter Problems (Active) Balance Patient will maintain dynamic sitting balance for 5 minutes with CGA in order to demonstrate improved postural control and prepare for out of bed mobility. (Progressing) Start: 10/11/22 Expected End: 11/08/22 Mobility Patient will ambulate 15 feet with min assist and rolling walker in order to improve safety and independence with mobility. (Not Addressed) Start: 10/11/22 Expected End: 11/08/22 Pain - Adult Safety Patient will recall/demonstrate weight bearing and/or ROM restrictions with all functional mobilityin order to promote healing and safety with functional tasks. (Progressing) Start: 10/11/22 Expected End: 11/08/22 Transfers Patient will perform bed mobility with supervision in order to improve independence and prepare forout of bed mobility. (Progressing) Start: 10/11/22 Expected End: 11/08/22 Patient will complete functional transfer with least restrictive device with CGA in order to prepare for ambulation. (Not Addressed) Start: 10/11/22 Expected End: 11/08/22 Education Education Given To: Patient Education Provided: PT Role, General Safety, Plan of Care, Discharge recommendations, Weight-bearing Education, Precautions, Home Exercise Program, Pressure Relief, Functional Mobility Training Education Method: Verbal Education Outcome: Continued education needed Therapy Time Individual Co-treatment Time In 1620 Time Out 1638 Minutes 18 Timed Code Treatment Minutes: (fa) Roseanne Ewing PTA * Dereck Bryan, OT - 10/12/2022 1:50 PM EDT Images from the original note were not included. Occupational Therapy OCCUPATIONAL THERAPY [facility] Initial Evaluation Name/MRN: Donna Marsh ([id number]) Evaluation Date: 10/12/2022 Date of : 1955 Admission Date: 10/03/2022 5:27 PM Age: 66 y.o. Room[facility]Bed: [facility] A Discharge Recommendation: SNF Equipment Needed: front wheeled walker and wheelchair - manual Assessment IMPRESSION: 66 y.o. female s/p Left Hip removal of hardware with conversion to COSTA on 10/10, 25% WB LLE in KI (KI at all times). From SNF, was mostly in bed there from pt report. On eval reports 8/10 pain in the LE. Required max A for bed mob, poor sitting balance at EOB d/t poor trunk strength/control and requires constant hands on assist to maintain midline and avoid posterior losses of balance putting pt at risk of sliding off of bed. Currently unable to complete full stand, dependent for LB dressing. Will need SNF. Performance Deficits /Impairments: Decreased Functional Mobility, Decreased ADL status, Decreased Strength, Decreased Safety Awareness, Decreased Endurance, Decreased Balance, and Decreased High Level ADLs Prognosis: Fair Decision Making: Low Complexity Subjective Before all of this I was at home working in my garden Pain: 0-10 pain scale: 8/10 Location: LLE Past Medical History: Past Medical History: Diagnosis Date Bipolar 1 disorder (HCC) Diabetes mellitus (HCC) Hyperlipidemia Hypertension Neuropathy Past Surgical History: Past Surgical History: Procedure Laterality Date CARPAL TUNNEL RELEASE HYSTERECTOMY ORIF DISTAL RADIUS FRACTURE (HISTORICAL) Left 08/06/2022 TONSILLECTOMY (HISTORICAL) Admission Diagnosis: Patient Active Problem List Diagnosis Date Noted HTN (hypertension) 10/09/2022 HLD (hyperlipidemia) 10/09/2022 Gastroesophageal reflux disease 10/09/2022 Diabetes mellitus, type 2 (HCC) 10/09/2022 Failed orthopedic implant (CMS/HCC) ([facility]) 10/03/2022 Left hip pain 10/03/2022 Complication of internal hip prosthesis, initial encounter ([facility]) 10/03/2022 Medical Precautions: No active isolations Proper PPE donned/doffed in accordance with facility standards. Precautions/Restrictions: Left LE Weight Bearing: Partial Weight Bearin% KI ON at all time Family/Caregiver Present: none Overall Cognitive Status: WFL Overall Orientation Status: Oriented x4 Social/Functional History Lives With: Spouse and Son Type of Home: mobile home Home Layout: Single Level Home Home Access: Stairs to Enter with Rails (# of stairs: 3) Bathroom Shower/Tub: Shower Chair without Back and Walk in Shower Toilet: handicap height Home Equipment: rollator Homemaking Responsibilities: Independent Receives Help From: Family ADL Assistance: Independent Ambulation Assistance: Independent Device(s) used: rollator Transfer Assistance: Independent Active Exercise Manager: N/A Objective ADLs LE Dressing: Dependent Upper Extremity Assessment AROM: WNL PROM: Not assessed this session Strength: WFL Coordination: WNL Tone: WNL Sensation: WNL Vision: not assessed this session Hand dominance: N/A Transfers/Mobility Supine to sit: Max Assist Sit to supine: Max Assist Sitting balance: Min Assist, Mod Assist Device(s) used: none AM-PAC AM-PAC Inpatient Daily Activity Raw Score: 16 ADL Inpatient CMS G-Code Modifier: CK Plan Pt would benefit from skilled acute OT services to address Strengthening, Balance Training, Functional Mobility Training, Endurance Training, Wheelchair Mobility Training, Gait Training, Pain Management, Safety Education and Training, Patient/Caregiver Training, Equipment Evaluation/Education, and Self- Care/ADL Training. Frequency: 5-7x/week for 4 weeks Barriers: Pain and Lower extremity weakness Prognosis: fair Safety/Education Safety Safety Devices in place: All fall risk precautions in place, call light within reach, left in bed, and no alarms engaged upon entry Restraints: No Education Education Given To: patient Education Provided: OT Role and Plan of Care Education Method: Verbal Barriers to Learning: None Education Outcome: Verbalized Understanding Goals Patient Stated Goal: rehab Encounter Problems Encounter Problems (Active) Balance Patient will maintain static sitting balance for 5 minutes with SBA in order to demonstrate improved postural control and prepare for out of bed mobility. Start: 10/12/22 Expected End: 11/09/22 Patient will maintain dynamic sitting balance for 2 minutes with SBA in order to demonstrate improved postural control and prepare for out of bed mobility. Start: 10/12/22 Expected End: 11/09/22 Dressings Lower Extremities Patient will dress lower body mod A with AE Start: 10/12/22 Expected End: 11/09/22 Grooming Patient will complete daily grooming tasks EOB min A Start: 10/12/22 Expected End: 11/09/22 Safety Patient will adhere to hip/KI precautions during all functional mobility and ADLs in order to demonstrate improved understanding and promote healing post op. Start: 10/12/22 Expected End: 11/09/22 Toileting Patient will complete toileting mod A Start: 10/12/22 Expected End: 11/09/22 Therapy Time Individual Co-treatment Time In 1345 Time Out 1405 Minutes 20 Dereck Bryan OT Patient's Occupational Therapy Plan of Care supervision is transferred to a [facility] Services Occupational Therapist. Goals and/or treatment plan was established in collaboration with patient/family/other representatives. * Adria Parker JD, MD - 10/12/2022 6:27 AM EDT Images from the original note were not included. [facility] [address] [place] [id number] Dept: [phone] Adult Orthopaedic Service Patient Name: Donna Marsh Date of : 1955 Date: 10/12/22 Subjective: Got up with PT yesterday and reports minimal hip pain. If her foot isn't propped up she states thatit hurts her. Overall is pleased with her surgery. Medications: atorvastatin, 20 mg, Oral, Daily busPIRone, 15 mg, Oral, BID [Held by provider] carvedilol, 3.125 mg, Oral, BID WC ceFAZolin, 2,000 mg, IntraVENous, q8h enoxaparin, 40 mg, SubCUTAneous, Daily fexofenadine, 180 mg, Oral, Daily FLUoxetine, 20 mg, Oral, Daily gabapentin, 200 mg, Oral, BID glipiZIDE, 10 mg, Oral, qAM AC insulin lispro, 0-12 Units, SubCUTAneous, 4x daily AC & HS And insulin lispro, 0-12 Units, SubCUTAneous, Nightly [Held by provider] lisinopril, 5 mg, Oral, Daily pantoprazole, 40 mg, Oral, qAM AC Physical Exam: Vitals: 10/11/222007 BP: 118/58 Pulse: 102 Resp: 16 Temp: 36.4 C (97.5 F) SpO2: 97% Intake and Output Summary (Last 24 hours) at Date Time Intake/Output Summary (Last 24 hours) at 10/12/2022 0627 Last data filed at 10/12/2022 0549 Gross per 24 hour Intake 200 ml Output 880 ml Net -680 ml LLE: Dressing over incision C/D/I Drain dressing saturated SILT S/S/SP/DP/T nerve distribution Motor intact DF/PF/EHL Foot wwp, BCR <2s toes Drain 40cc overnight Labs: CBC: Lab Results Component Value Date WBC 15.3 (H) 10/12/2022 HGB 9.1 (L) 10/12/2022 HCT 28.0 (L) 10/12/2022 PLT 233 10/12/2022 BMP: Lab Results Component Value Date NA 140 10/12/2022 K 4.4 10/12/2022 CL 101 10/12/2022 CO2 27 10/12/2022 BUN 17 10/12/2022 CREATININE 0.64 10/12/2022 CALCIUM 8.6 10/12/2022 GLUCOSE 212 (H) 10/12/2022 PT/INR: Lab Results Component Value Date PROTIME 10.3 10/10/2022 INR 1.0 10/10/2022 APTT: Lab Results Component Value Date APTT 25.3 10/10/2022 Type and Screen: Lab Results Component Value Date RH POS 10/10/2022 ETHANOL: No results found for: ETOH DRUG SCREEN: No results found for: BARBITURATES, BENZOURQL, COCAINESCRN, METHADU, OPIAU, PCPURINE CRP: No results found for: CRP ESR: No results found for: SEDRATE Rads: Radiological Procedure reviewed. Assessment: 66 y.o. female s/p Left Hip removal of hardware with conversion to COSTA on 10/10 Plan: No plans for further surgical intervention 25% WB LLE in KI KI at all times, please check skin around knee immobilizer every shift for wound breakdown Femoral head sent for permanent path Drain until discharge -> Ancef until drain out Record drain output every shift Transition to duricef for 7 days at discharge Neurovascular checks Lovenox 40mg Daily x30 days PT/OT Pain and medical management per primary Follow-up with Dr. Mares in 4 weeks for recheck Ortho to follow peripherally for drain OP/path * Gayle Herbert MD - 10/12/2022 12:50 AM EDT Images from the original note were not included. Hospitalist Progress Note 10/13/2022 Subjective: Admit Date: 10/03/2022 PCP: CICI CALDERON Room#: [id number] A Interval History: Donna is a 66 year old female, who presents to the ED with left hip pain s/p ORIF in July. She was initially admitted to [facility] for evaluation of possible hardware failure. Patient was transferred here for surgical intervention which is planned on the . There is concern for migration of screw proximally into the retroperitoneum and vascular surgery is on standby. She states that she has not ambulated much since the surgery in July. 10/05/2022: Patient alert, chart reviewed, denies any headache, dizziness, chest pain. Prior to surgery she has been ambulatory and denies any rate limiting factors including any exertional chest painor shortness of breath. She is a non- smoker. Pt had Left Hip removal of hardware with conversion toTHA 10/06- pt lying on bed, denies any complaints at this time, no acute issues overnt. 10/07- pt reports pain in her bilateral lower ext due to neuropathy, no other complaints, no acute issues overnt. 10/08- pt denies any complaints at this time, waiting for surgery on Sunday, no acute issues overnt. 10/09- pt lying in bed, denies any complaints at this time, plan for surgery in am. 10/10- pt reports feeling anxious, scheduled for procedure today, no acute issues overnt, family at bedside. 10/11- post op day1, pt denies any complaints at this time except pain at surgical site, no other complaints, drain in place, draining blood. No acute issues overnt. 10/12- denies any complaints, drain in place with bloody discharge. Objective: Vitals: BP 112/77 Pulse (!) 118 Temp 36.6 C (97.8 F) (Temporal) Resp 20 Ht 5' 4 (1.626 m) Wt 144 lb 10 oz (65.6 kg) SpO2 95% BMI 24.82 kg/m Pulse Ox: SpO2 Av % Min: 95 % Max: 98 % Supplemental O2: O2 Flow Rate (L/min): 3 L/min Pertinent physical exam: Patient is alert, awake, oriented x 3 No pallor, Icterus No JVD Heart S1 S2 No murmurs Lungs clear to auscultation Abdomen soft non distended no organomegaly, lower abd ulcer seen, no drainage, or erythema No pedal edema, scd's in place, no cyanosis No focal neurological deficits Assessment Acute, acute on chronic, unstable/uncontrolled chronic problems: Left hip pain with hardware failure- s/p hardware removal with conversion to COSTA Migrated screw into the retroperitoneum Hyperkalemia- resolved Type 2 DM with hyperglycemia Stable chronic problems affecting care, new non-acute diagnoses: Hypertension DM2 Neuropathy Bipolar disorder. MDM/Plan Post op day 1, drain in place, appreciate ortho recs, ptot recommending snf Continue ancef Potassium improved Lisinopril and coreg on hold Monitor blood sugars closely, on ssi, sugars running high, on diabetic diet Continue sliding scale coverage Gabapentin helping with neuropathy, prn pain meds for surgical site pain - DVT prophylaxis: lovenox t Advance Directive: Full Code Anticipated Discharge - Date - TBD - Location -TBD - Pending the following -clinical course Adult diet Regular; 3 carb choices (45 gm/meal) 24HR INTAKE/OUTPUT: Intake/Output Summary (Last 24 hours) at 10/13/2022 0050 Last data filed at 10/12/2022 1701 Gross per 24 hour Intake -- Output 780 ml Net -780 ml LABS: CBC: Recent Labs 10/10/22 2228 10/11/22 0125 10/12/22 0109 WBC -- 14.0* 15.3* RBC -- 3.24* 3.05* HGB 10.4* 9.7* 9.1* HCT 32.4* 29.5* 28.0* MCV -- 91.1 91.7 RDW -- 14.8* 14.8* PLT -- 207 233 BMP: Recent Labs 10/11/22 0125 10/12/22 0109 NA 135 140 K 5.0 4.4 CL 99 101 CO2 20* 27 BUN 20* 17 CREATININE 0.62 0.64 GLUCOSE 323* 212* CALCIUM 9.0 8.6 ANIONGAP 15* 12 LIVER PROFILE: No results for input(s): AST, ALT, BILITOT, ALKPHOS, PROT in the last 72 hours. No lab exists for component: LABALBU PT/INR: No results for input(s): PROTIME, INR in the last 72 hours. CARDIAC ENZYMES: No results for input(s): TROPONINI in the last 72 hours. Procalcitonin: No results found for: PROCAL Medications: Scheduled atorvastatin, 20 mg, Oral, Daily busPIRone, 15 mg, Oral, BID [Held by provider] carvedilol, 3.125 mg, Oral, BID WC ceFAZolin, 2,000 mg, IntraVENous, q8h enoxaparin, 40 mg, SubCUTAneous, Daily fexofenadine, 180 mg, Oral, Daily FLUoxetine, 20 mg, Oral, Daily gabapentin, 200 mg, Oral, BID glipiZIDE, 10 mg, Oral, qAM AC insulin lispro, 0-12 Units, SubCUTAneous, 4x daily AC & HS And insulin lispro, 0-12 Units, SubCUTAneous, Nightly [Held by provider] lisinopril, 5 mg, Oral, Daily methocarbamol, 500 mg, Oral, 3 times per day pantoprazole, 40 mg, Oral, qAM AC PRN PRN medications: acetaminophen OR acetaminophen, dextrose, dextrose, glucagon (rDNA), glucose, morphine sulfate, ondansetron ODT OR ondansetron, polyethylene glycol (PEG) 3350, traMADol Extended Emergency Contact Information Primary Emergency Contact: Joo Bernstein Relation: None Gayle Herbert MD Division of Hospitalist Medicine [facility] * Cece Alcala PA-C - 10/11/2022 4:00 PM EDT Images from the original note were not included. Orthopedic Progress Note Name: Donna Marsh Date:10/11/2022 Attending:Gayle Herbert MD Subjective CHIEF COMPLAINT: s/p Left Hip removal of hardware with conversion to COSTA 10/10/22 HPI: Patient is seen resting comfortably in bed, very pleasant upon my evaluation. The patient reports that the pain postoperatively has been significant, however manageable on current medication regimen. She denies any numbness or tingling into her left lower extremity. Discussed with patient plan for follow-up as an outpatient with Dr. Vishnu FOREMAN in 4 weeks. Objective PAST MEDICAL HISTORY Patient Active Problem List Diagnosis Failed orthopedic implant ([facility]) ([facility]) Left hip pain Complication of internal hip prosthesis, initial encounter ([facility]) HTN (hypertension) HLD (hyperlipidemia) Gastroesophageal reflux disease Diabetes mellitus, type 2 ([facility]) PAST SURGICAL HISTORY Past Surgical History: Procedure Laterality Date CARPAL TUNNEL RELEASE HYSTERECTOMY ORIF DISTAL RADIUS FRACTURE (HISTORICAL) Left 08/06/2022 TONSILLECTOMY (HISTORICAL) HOME MEDICATIONS Prior to Admission medications Medication Sig Start Date End Date Taking? Authorizing Provider acetaminophen (Tylenol Extra Strength) 500 MG tablet Take by mouth. Historical Provider, alendronate (Fosamax) 70 MG tablet 09/13/22 Historical Provider, atorvastatin (Lipitor) 20 MG tablet Take 20 mg by mouth. 09/15/22 Historical Provider, bisacodyl (Dulcolax) 10 MG suppository Insert into the rectum. Historical Provider, busPIRone (Buspar) 15 MG tablet 09/13/22 Historical Provider, carvedilol (Coreg) 3.125 MG tablet Take by mouth. Historical Provider, cefadroxil (Duricef) 500 MG capsule Take 1 capsule (500 mg) by mouth 2 times daily for 7 days. Begin taking for 7 days after discharge from the hospital 10/10/22 10/17/22 Luis Causey MD celecoxib (CeleBREX) 200 MG capsule Take 200 mg by mouth. 08/16/22 Historical Provider, enoxaparin (Lovenox) 40 MG/0.4ML solution prefilled syringe Inject 0.4 mL (40 mg) under the skin daily. 10/10/22 11/09/22 Luis Causey MD ergocalciferol (Vitamin D-2) 1.25 MG (04841 UT) capsule Take by mouth. Historical Provider, fexofenadine (Roc) 180 MG tablet Take by mouth. Historical Provider, FLUoxetine (PROzac) 20 MG capsule Take 20 mg by mouth in the morning. Historical Provider, glipiZIDE (Glucotrol) 10 MG tablet Take by mouth. Historical Provider, lisinopril 20 MG tablet Take by mouth. Historical Provider, omeprazole (PriLOSEC) [address] capsule Take by mouth. Historical Provider, oxybutynin XL (Ditropan-XL) 10 MG 24 hr tablet 09/13/22 Historical Provider, oxyCODONE (Roxicodone) 5 MG immediate release tablet Take 5 mg by mouth. Historical Provider, sodium phosphate (Fleets) 7-19 GM/118ML enema enema Insert into the rectum. Historical Provider, traMADol (Ultram) 50 MG tablet Take by mouth. Historical Provider, CURRENT HOSPITAL MEDICATIONS Current Facility-Administered Medications: acetaminophen (Tylenol) tablet 650 mg, 650 mg, Oral, q6h PRN, 650 mg at 10/10/22 0831 OR acetaminophen (Tylenol) suppository 650 mg, 650 mg, Rectal, q6h PRN, Luis Causey MD atorvastatin (Lipitor) tablet 20 mg, 20 mg, Oral, Daily, Luis Causey MD, 20 mg at 10/11/22 08 busPIRone (Buspar) tablet 15 mg, 15 mg, Oral, BID, Luis Causey MD, 15 mg at 10/11/22 0805 [Held by provider] carvedilol (Coreg) tablet 3.125 mg, 3.125 mg, Oral, BID WC, Luis Causey MD, 3.125 mg at 10/07/22 0817 ceFAZolin in dextrose 4% (Ancef) IVPB 2,000 mg, 2,000 mg, IntraVENous, q8h, Luis Causey MD, Stopped at 10/11/22 1433 dextrose 5 % infusion, 100 mL/hr, IntraVENous, PRN, Luis Causey MD dextrose 50 % solution 12.5 g, 12.5 g, IntraVENous, PRN, Luis Causey MD enoxaparin (Lovenox) syringe 40 mg, 40 mg, SubCUTAneous, Daily, Gayle Herbert MD, 40 mg at 10/11/22 0948 fexofenadine (Roc) tablet 180 mg, 180 mg, Oral, Daily, Luis Causey MD, 180 mg at 10/11/22 0808 FLUoxetine (PROzac) capsule 20 mg, 20 mg, Oral, Daily, Luis Causey MD, 20 mg at 10/11/22 0806 gabapentin (Neurontin) capsule 200 mg, 200 mg, Oral, BID, Luis Causey MD, 200 mg at 10/11/22 0805 glipiZIDE (Glucotrol) tablet 10 mg, 10 mg, Oral, qAM AC, Gayle Herbert MD, 10 mg at 10/11/22 0948 glucagon (human recombinant) injection 1 mg, 1 mg, IntraMUSCular, PRN, Luis Causey MD glucose oral gel 15 g, 15 g, Oral, PRN, Luis Causey MD Insulin Lispro (Humalog) injection 0-12 Units, 0-12 Units, SubCUTAneous, 4x daily AC & HS, 12 Units at 10/11/22 1228 AND Insulin Lispro (Humalog) injection 0-12 Units, 0-12 Units, SubCUTAneous, Nightly, Luis Causey MD, 6 Units at 10/09/227 [Held by provider] lisinopril tablet 5 mg, 5 mg, Oral, Daily, Luis Causey MD, 5 mg at 10/07/22 0817 morphine injection 2 mg, 2 mg, IntraVENous, q4h PRN, Luis Causey MD, 2 mg at 10/11/22 0614 ondansetron ODT (Zofran-ODT) disintegrating tablet 4 mg, 4 mg, Oral, q8h PRN, 4 mg at 10/10/22 0021OR ondansetron (Zofran) injection 4 mg, 4 mg, IntraVENous, q6h PRN, Luis Causey MD, 4 mg at10/11/22 0617 pantoprazole (ProtoNix) EC tablet 40 mg, 40 mg, Oral, qAM AC, Luis Causey MD, 40 mg at 554 polyethylene glycol (PEG) 3350 (Miralax) packet 17 g, 17 g, Oral, Daily PRN, Luis Causey MD traMADol (Ultram) tablet 50 mg, 50 mg, Oral, q8h PRN, Luis Causey MD, 50 mg at 10/11/22 1441 ALLERGIES: Codeine, Fentanyl, Morphine, and Nsaids SOCIAL HISTORY: Social History Socioeconomic History Marital status: Spouse name: Not on file Number of children: Not on file Years of education: Not on file Highest education level: Not on file Occupational History Not on file Tobacco Use Smoking status: Former Packs/day: 1.00 Years: 15.00 Pack years: 15.00 Types: Cigarettes Quit date: 07/26/2022 Years since quittin.2 Smokeless tobacco: Never Substance and Sexual Activity Alcohol use: No Drug use: Yes Types: Marijuana Sexual activity: Not Currently Other Topics Concern Not on file Social History Narrative Not on file Social Determinants of Health Financial Resource Strain: Not on file Food Insecurity: Not on file Transportation Needs: Not on file Physical Activity: Not on file Stress: Not on file Social Connections: Not on file Intimate Partner Violence: Not At Risk (10/04/2022) Humiliation, Afraid, Rape, and Kick questionnaire Fear of Current or Ex-Partner: No Emotionally Abused: No Physically Abused: No Sexually Abused: No Housing Stability: Not on file FAMILY HISTORY: No family history on file. Further Family History is noncontributory to this injury. REVIEW OF SYSTEMS: Review of Systems - General ROS: negative for - chills, fatigue, fever, malaise or night sweats Psychological ROS: negative Ophthalmic ROS: negative ENT ROS: negative for - headaches or sore throat Hematological and Lymphatic ROS: negative for - bleeding problems or blood clots Respiratory ROS: no cough, shortness of breath, or wheezing Cardiovascular ROS: no chest pain or dyspnea on exertion Gastrointestinal ROS: negative Musculoskeletal ROS: See HPI Neurological ROS: negative for - bowel and bladder control changes, gait disturbance or numbness/tingling All other systems reviewed and are negative VITALS: Vitals: 10/10/22 2202 10/11/22 0139 10/11/22 0533 10/11/22 0721 BP: 105/67 101/65 100/60 112/60 BP Location: Right arm Right arm Patient Position: Lying Lying Pulse: (!) 115 (!) 111 103 100 Resp: 18 16 18 14 Temp: 36.8 C (98.3 F) 37.1 C (98.7 F) 36.6 C (97.8 F) 36.4 C (97.6 F) TempSrc: Temporal Temporal Temporal Temporal SpO2: 97% 96% 93% 93% Weight: Height: PHYSICAL EXAM: GENERAL: Patient is well developed/well nourished in NAD. A+O x 4 MOOD AND AFFECT: Calm appropriate to situation GAIT AND STATION: Patient is in bed COORDINATION and BALANCE: Patient is grossly coordinated LYMPHADENOPATHY: none on examination of the affected extremity(s) LLE INSPECTION DRESSING: Clean/Dry/Intact. Knee immobilizer in place NEUROLOGICAL: SILT intact to +Saphenous/Superficial Peroneal/Deep Peroneal/Tibial/Sural distributions MOTOR: +Dorsiflexion/Plantarflexion/Great toe extension VASCULAR: Palpable dorsalis pedis pulse. Capillary refill to all 5 lower extremity digits was briskand all digits were warm to touch. LABS: CBC: Lab Results Component Value Date WBC 14.0 (H) 10/11/2022 RBC 3.24 (L) 10/11/2022 BMP: Lab Results Component Value Date GLUCOSE 323 (H) 10/11/2022 CO2 20 (L) 10/11/2022 BUN 20 (H) 10/11/2022 CREATININE 0.62 10/11/2022 CALCIUM 9.0 10/11/2022 PT/INR: Lab Results Component Value Date INR 1.0 10/10/2022 APTT 25.3 10/10/2022 Type and Screen: Lab Results Component Value Date RH POS 10/10/2022 CRP: No results found for: CRP ESR: No results found for: SEDRATE HgBA1c: No components found for: LABA1C The above labs were reviewed by me. Assessment Donna is a 66 y.o.female s/p Left Hip removal of hardware with conversion to COSTA 10/10/22 Plan No plans for further surgical intervention 25% WB LLE in KI KI at all times, please check skin around knee immobilizer every shift for wound breakdown Femoral head sent for permanent path Drain until discharge -> Ancef until drain out Record drain output every shift Transition to duricef for 7 days at discharge Neurovascular checks Lovenox 40mg Daily x30 days PT/OT Pain and medical management per primary Patient was scheduled a follow up appointment for 11/06/2022 at 1:[address] Mares AHSAN, Phyllis Guevara. Ortho following * Je Penny MD - 10/11/2022 2:03 PM EDT Vascular Attending Note: At the request of the Orthopedic service, OR standby services were provided for 120 minutes during removal of orthopedic hardware with concern for iliac arterial involvement. No vascular procedure was necessary. Je Penny MD, FACS Vascular Surgery * Gayle Herbert MD - 10/11/2022 1:31 PM EDT Images from the original note were not included. Hospitalist Progress Note 10/11/2022 Subjective: Admit Date: 10/03/2022 PCP: CICI CALDERON Room#: [id number]/[id number] A Interval History: Donna is a 66 year old female, who presents to the ED with left hip pain s/p ORIF in July. She was initially admitted to [facility] for evaluation of possible hardware failure. Patient was transferred here for surgical intervention which is planned on the . There is concern for migration of screw proximally into the retroperitoneum and vascular surgery is on standby. She states that she has not ambulated much since the surgery in July. 10/05/2022: Patient alert, chart reviewed, denies any headache, dizziness, chest pain. Prior to surgery she has been ambulatory and denies any rate limiting factors including any exertional chest painor shortness of breath. She is a non- smoker. Pt had Left Hip removal of hardware with conversion toTHA 10/06- pt lying on bed, denies any complaints at this time, no acute issues overnt. 10/07- pt reports pain in her bilateral lower ext due to neuropathy, no other complaints, no acute issues overnt. 10/08- pt denies any complaints at this time, waiting for surgery on Sunday, no acute issues overnt. 10/09- pt lying in bed, denies any complaints at this time, plan for surgery in am. 10/10- pt reports feeling anxious, scheduled for procedure today, no acute issues overnt, family at bedside. 10/11- post op day1, pt denies any complaints at this time except pain at surgical site, no other complaints, drain in place, draining blood. No acute issues overnt. Objective: Vitals: BP 112/60 (BP Location: Right arm, Patient Position: Lying) Pulse 100 Temp 36.4 C (97.6F) (Temporal) Resp 14 Ht 5' 4 (1.626 m) Wt 144 lb 10 oz (65.6 kg) SpO2 93% BMI 24.82 kg/m Pulse Ox: SpO2 Av.4 % Min: 93 % Max: 100 % Supplemental O2: O2 Flow Rate (L/min): 3 L/min Pertinent physical exam: Patient is alert, awake, oriented x 3 No pallor, Icterus No JVD Heart S1 S2 No murmurs Lungs clear to auscultation Abdomen soft non distended no organomegaly, lower abd ulcer seen, no drainage, or erythema No pedal edema, scd's in place, no cyanosis No focal neurological deficits Assessment Acute, acute on chronic, unstable/uncontrolled chronic problems: Left hip pain with hardware failure- s/p hardware removal with conversion to COSTA Migrated screw into the retroperitoneum Hyperkalemia- resolved Type 2 DM with hyperglycemia Stable chronic problems affecting care, new non-acute diagnoses: Hypertension DM2 Neuropathy Bipolar disorder. MDM/Plan Post op day 1, drain in place, appreciate ortho recs, ptot recommending snf Potassium improved Lisinopril and coreg on hold Monitor blood sugars closely, on ssi, sugars running high, on diabetic diet and will give extra humalog today Continue sliding scale coverage Gabapentin helping with neuropathy, prn pain meds for surgical site pain - DVT prophylaxis: restart lovenox today Advance Directive: Full Code Anticipated Discharge - Date - TBD - Location -TBD - Pending the following -clinical course Adult diet Regular; 3 carb choices (45 gm/meal) 24HR INTAKE/OUTPUT: Intake/Output Summary (Last 24 hours) at 10/11/2022 1331 Last data filed at 10/11/2022 1149 Gross per 24 hour Intake 3488.5 ml Output 3180 ml Net 308.5 ml LABS: CBC: Recent Labs 10/09/22 0153 10/10/22 0032 10/10/22 2228 10/11/22 0125 WBC 13.7* 10.9* -- 14.0* RBC 3.60* 3.78* -- 3.24* HGB 10.7* 11.3* 10.4* 9.7* HCT 32.3* 34.5* 32.4* 29.5* MCV 89.8 91.2 -- 91.1 RDW 14.4 14.2 -- 14.8* PLT 329 302 -- 207 BMP: Recent Labs 10/09/22 0153 10/10/22 0032 10/11/22 0125 NA 134* 135 135 K 4.8 4.7 5.0 CL 100 101 99 CO2 25 25 20* BUN 25* 24* 20* CREATININE 0.70 0.72 0.62 GLUCOSE 219* 268* 323* CALCIUM 8.6 8.9 9.0 ANIONGAP 10 9 15* LIVER PROFILE: No results for input(s): AST, ALT, BILITOT, ALKPHOS, PROT in the last 72 hours. No lab exists for component: LABALBU PT/INR: Recent Labs 10/10/2231 PROTIME 10.3 INR 1.0 CARDIAC ENZYMES: No results for input(s): TROPONINI in the last 72 hours. Procalcitonin: No results found for: PROCAL Medications: Scheduled atorvastatin, 20 mg, Oral, Daily busPIRone, 15 mg, Oral, BID [Held by provider] carvedilol, 3.125 mg, Oral, BID WC ceFAZolin, 2,000 mg, IntraVENous, q8h enoxaparin, 40 mg, SubCUTAneous, Daily fexofenadine, 180 mg, Oral, Daily FLUoxetine, 20 mg, Oral, Daily gabapentin, 200 mg, Oral, BID glipiZIDE, 10 mg, Oral, qAM AC insulin lispro, 0-12 Units, SubCUTAneous, 4x daily AC & HS And insulin lispro, 0-12 Units, SubCUTAneous, Nightly [Held by provider] lisinopril, 5 mg, Oral, Daily pantoprazole, 40 mg, Oral, qAM AC PRN PRN medications: acetaminophen OR acetaminophen, dextrose, dextrose, glucagon (rDNA), glucose, morphine sulfate, ondansetron ODT OR ondansetron, polyethylene glycol (PEG) 3350, traMADol Extended Emergency Contact Information Primary Emergency Contact: Joo Bernstein Relation: None Gayle Herbert MD Division of Hospitalist Medicine [facility] * Holli Saldaña, PT - 10/11/2022 10:56 AM EDT Physical Therapy Facility/Department: Physical Therapy Initial Evaluation NAME: Donna Marsh : 1955 Date of Service: 10/11/2022 Discharge Recommendations: Care Home Facility PT Equipment Recommendations Equipment Needed: No Assessment Requires PT Follow-Up: Yes Assessment: 66 y.o. female admitted to [facility] for hardware failure, s/p R COSTA with hardware removal. She was Min A for rolling in bed, and Max A for supine <> sit and scooting transfers. She was admitted from a SNF where she was receiving full assist and per pt was mainly in bed. She is currently at high risk for falls. would recommend SNF at discharge. Performance Deficits/Impairments: Decreased functional mobility , Decreased ADL status, Decreased strength, Decreased balance, Increased pain, Decreased posture, Decreased endurance, Decreased ROM Decision Making: Medium Complexity Activity Tolerance Activity Tolerance: Patient limited by fatigue, Patient limited by pain Patient Diagnosis(es): The primary encounter diagnosis was Complication of internal hip prosthesis,initial encounter ([facility]). A diagnosis of Failed orthopedic implant, initial encounter ([facility]) was alsopertinent to this visit. has a past medical history of Bipolar 1 disorder (HCC), Diabetes mellitus (HCC), Hyperlipidemia, Hypertension, and Neuropathy. has a past surgical history that includes Hysterectomy; Tonsillectomy; Carpal tunnel release; and orif distal radius fracture (historical) (Left, 08/06/2022). Restrictions Restrictions/Precautions Restrictions/Precautions: General Precautions, Fall Risk, Weight Bearing Required Braces or Orthoses?: Yes Lower Extremity Weight Bearing Restrictions Left Lower Extremity Weight Bearing: Partial Weight Bearing Partial Weight Bearing Percentage Or Pounds: 25% WB in KI at all times Required Braces or Orthoses Left Lower Extremity Brace: Knee Immobilizer (at all times) Position Activity Restriction Other position/activity restrictions: TERRANCE, murcia Vision/Hearing Vision: Within Functional Limits Hearing: Functional/adequate for paticipation in therapy Cognition/Orientation Overall Cognitive Status: Exceptions Arousal/Alertness: Appropriate responses to stimuli Following Commands: Follows one step commands with increased time, Follows one step commands with repetition Safety Judgement: Decreased awareness of need for assistance, Decreased awareness of need for safety Initiation: Requires cues for some Sequencing: Requires cues for some Overall Orientation Status: Within Functional Limits Subjective General Chart Reviewed: Yes Patient Assessed for Rehabilitation Services: Yes Additional Pertinent Hx: recent L hip nailing Response To Previous Treatment: Not applicable Family / Caregiver Present: No Diagnosis: failure of hip prosthesis, s/p L COSTA with hardware removal 10/10 Follows Commands: Within Functional Limits Subjective Subjective: Pt supine in bed; agreeable to PT session. Cleared by nursing. Denies pain Patient Stated Goal: to get OOB Social/Functional History Social/Functional History Lives With: Alone Type of Home: Facility ADL Assistance: Needs assistance Ambulation Assistance: Non-ambulatory Transfer Assistance: Needs assistance Additional Comments: Pt stated she has been in a [facility] for 2 months since first hip surgery where she is primarily in the bed with full assistance. Objective AROM RLE (degrees) RLE AROM: WFL AROM LLE (degrees) LLE General AROM: unable to assess knee, ankle WFL, pt able to flex hip but hesitant d/t pain with flexion Strength RLE Comment: 3/5 Strength LLE Comment: 2+/5 Sensation Overall Sensation Status: Intact Bed mobility Rolling to Left: Minimal assistance Rolling to Right: Minimal assistance Supine to Sit: Maximum assistance Sit to Supine: Maximum assistance Scooting: Maximal assistance Comment: HOB slightly elevated, use of bed rails. Cues for sequencing. Pt with heavy retrograde lean causing hips to shift anterior to EOB, minimal command following for leaning anterior to prevent hips sliding d/t fear of falling forward. Max A to maintain seated balance. Required Max A return to bed for pt safety. Rolling L <> R for bedding change with Min A Transfers Sit to Stand: Unable to assess Stand to sit: Unable to assess Comment: deferred for pt safety Ambulation Ambulation: No Balance Posture: Poor Sitting - Static: Poor Sitting - Dynamic: Poor Plan Times per Week: 5-7x Plan Weeks: 4 wks Current Treatment Recommendations: Strengthening, Balance Training, ROM, Gait Training, Functional Mobility Training, Transfer Training, ADL/Self-care Training, Endurance Training, Equipment Evaluation, Education, & procurement, Patient/Caregiver Education & Training, Safety Education &Training, Home Exercise Program Safety Safety Devices Safety Devices in Place: Yes Type of Devices: All fall risk precautions in place, Call light within reach, Left in bed, Patient at risk for falls, Nurse notified Restraints Restraints Initially in Place: No AM-PAC Score AM-PAC Inpatient Mobility Raw Score (No Stairs) : 8 Goals Encounter Problems Encounter Problems (Active) Balance Patient will maintain dynamic sitting balance for 5 minutes with CGA in order to demonstrate improved postural control and prepare for out of bed mobility. Start: 10/11/22 Expected End: 11/08/22 Mobility Patient will ambulate 15 feet with min assist and rolling walker in order to improve safety and independence with mobility. Start: 10/11/22 Expected End: 11/08/22 Pain - Adult Safety Patient will recall/demonstrate weight bearing and/or ROM restrictions with all functional mobilityin order to promote healing and safety with functional tasks. Start: 10/11/22 Expected End: 11/08/22 Transfers Patient will perform bed mobility with supervision in order to improve independence and prepare forout of bed mobility. Start: 10/11/22 Expected End: 11/08/22 Patient will complete functional transfer with least restrictive device with CGA in order to prepare for ambulation. Start: 10/11/22 Expected End: 11/08/22 Education Education Given To: Patient Education Provided: PT Role, General Safety, Plan of Care, Discharge recommendations, Transfer Training, Weight-bearing Education Education Provided Comments: KI use, 25% WB Education Method: Verbal Barriers to Learning: Cognition Education Outcome: Continued education needed Therapy Time Individual Co-treatment Time In 928 Time Out 0954 Minutes 25 Timed Code Treatment Minutes: (mod eval, 1 FA) This therapist was wearing an appropriate mask, goggles, and gloves for entire patient encounter. Holli Piper, PT * Amaya Fili, DYE MACHINE OPERATOR - NETWORK SYSTEMS OPERATOR - 10/11/2022 9:56 AM EDT Images from the original note were not included. [facility] Wound Care Progress Note Donna Marsh AGE: 66 y.o. GENDER: female : 1955 Subjective: HISTORY of PRESENT ILLNESS HPI Donna Marsh is a 66 y.o. female who presents for a wound care follow up. HPI: Ms. Marsh is a 66 y.o. female who is admitted to the hospital for hip hardware malposition. Patient underwent short cephalomedually nail placement on 08/06. After imaging was obtained in the ortho office yesterday, she was sent to [place] ED for further evaluation, imaging, and treatment. CTpelvis and further contrasted imaging demonstrated migration of that lag screw proximally into the retroperitoneum, in very close proximity to the left external iliac artery. Vascular surgery contacted and is planning for surgery. Wound Care consulted for abdomen ulcer. Dressing applied per wound care service. PT present at bedside at time of visit. PAST MEDICAL HISTORY Past Medical History: Diagnosis Date Bipolar 1 disorder (HCC) Diabetes mellitus (HCC) Hyperlipidemia Hypertension Neuropathy PAST SURGICAL HISTORY Past Surgical History: Procedure Laterality Date CARPAL TUNNEL RELEASE HYSTERECTOMY ORIF DISTAL RADIUS FRACTURE (HISTORICAL) Left 08/06/2022 TONSILLECTOMY (HISTORICAL) FAMILY HISTORY No family history on file. SOCIAL HISTORY Social History Tobacco Use Smoking status: Former Packs/day: 1.00 Years: 15.00 Pack years: 15.00 Types: Cigarettes Quit date: 07/26/2022 Years since quittin.2 Smokeless tobacco: Never Substance Use Topics Alcohol use: No Drug use: Yes Types: Marijuana ALLERGIES Allergies Allergen Reactions Codeine Other reaction(s): Intolerance, Itching Itching Fentanyl Other reaction(s): confusion Morphine Other Loss of Memory Nsaids Rash MEDICATIONS No current facility-administered medications on file prior to encounter. Current Outpatient Medications on File Prior to Encounter Medication Sig Dispense Refill acetaminophen (Tylenol Extra Strength) 500 MG tablet Take by mouth. alendronate (Fosamax) 70 MG tablet atorvastatin (Lipitor) 20 MG tablet Take 20 mg by mouth. bisacodyl (Dulcolax) 10 MG suppository Insert into the rectum. busPIRone (Buspar) 15 MG tablet carvedilol (Coreg) 3.125 MG tablet Take by mouth. celecoxib (CeleBREX) 200 MG capsule Take 200 mg by mouth. ergocalciferol (Vitamin D-2) 1.25 MG (67377 UT) capsule Take by mouth. fexofenadine (Roc) 180 MG tablet Take by mouth. FLUoxetine (PROzac) 20 MG capsule Take 20 mg by mouth in the morning. glipiZIDE (Glucotrol) 10 MG tablet Take by mouth. lisinopril 20 MG tablet Take by mouth. omeprazole (PriLOSEC) [address] capsule Take by mouth. oxybutynin XL (Ditropan-XL) 10 MG 24 hr tablet oxyCODONE (Roxicodone) 5 MG immediate release tablet Take 5 mg by mouth. sodium phosphate (Fleets) 7-19 GM/118ML enema enema Insert into the rectum. traMADol (Ultram) 50 MG tablet Take by mouth. REVIEW OF SYSTEMS Pertinent items are noted in HPI. Objective: BP 112/60 (BP Location: Right arm, Patient Position: Lying) Pulse 100 Temp 36.4 C (97.6 F) (Temporal) Resp 14 Ht 1.626 m (5' 4) Wt 65.6 kg (144 lb 10 oz) SpO2 93% BMI 24.82 kg/m PHYSICAL EXAM General appearance: in no apparent distress, well developed and well nourished, alert, oriented times 3, and cooperative, obese Skin: warm and dry Pulmonary: Normal effort, no respiratory distress, no cyanosis Abdomen: soft, nontender, and nondistended Right lower abdomen: 1.0cmx1.0cmxUTD. 100% dry eschar present. No drainage. Periwound intact and fragile. Stable Umbilicus: Scabbing to wound bed. No drainage present. Marj-wound intact and fragile. No sings of infection at this time. LABS CBC: Lab Results Component Value Date WBC 14.0 (H) 10/11/2022 HGB 9.7 (L) 10/11/2022 HCT 29.5 (L) 10/11/2022 MCV 91.1 10/11/2022 PLT 207 10/11/2022 BMP: Lab Results Component Value Date NA 135 10/11/2022 K 5.0 10/11/2022 CL 99 10/11/2022 CO2 20 (L) 10/11/2022 BUN 20 (H) 10/11/2022 CREATININE 0.62 10/11/2022 PT/INR: Lab Results Component Value Date PROTIME 10.3 10/10/2022 INR 1.0 10/10/2022 Prealbumin: No results found for: PREALBUMIN Albumin:No components found for: LABALBU Sed Rate: No results found for: SEDRATE Micro: No components found for: BC Assessment/Plan: Right lower abdomen: Chronic non-healing non pressure ulcer - Apply skin prep then leave DIRECTOR BUSINESS INTELLIGENCE daily and PRN Umbilicus: Abrasion - Apply skin prep. Leave [employer]. Apply daily and PRN. Nutritional support Wound Care to follow Recommend to follow up at [facility] wound care center after hospital discharge. Any questions or concerns please secure chat [facility] wound/ostomy. Thank you for the consult! I personally obtained the roque and critical portions of the history and physical exam. I reviewed the labs, imaging studies, and electronic medical record. I reviewed the chart documentation and discussed the patient with treatment team members. I have edited the note to reflect my clinical findingsand my assessment and plan. Please note, the time of this note does not reflect the time I saw thispatient today, but the time of this documentaton. Portions of this note including HPI, ROS, impression/plan, and examination may have been copied forward from admission to today as to provide important historical information essential in contributing to medical decision making. Documentation has been reviewed and edited as necessary to support clinical decision making for today's visit and to reflect my own independent evaluation of this patient. Decision making for today's visit and to reflectmy own independent evaluation of this patient. * Luis Causey MD - 10/11/2022 6:12 AM EDT Images from the original note were not included. [facility] [address] [facility] [place] [address] Dept: [phone] Adult Orthopaedic Service Patient Name: Donna Marsh Date of : 1955 Date: 10/11/22 Subjective: Patient in bed with some muscle spasms around the left hip. Has been unable to ambulate yet, but pain has been improved since surgery. Denies any N/T or muscle weakness. Catheter still in place. Medications: atorvastatin, 20 mg, Oral, Daily busPIRone, 15 mg, Oral, BID [Held by provider] carvedilol, 3.125 mg, Oral, BID WC ceFAZolin, 2,000 mg, IntraVENous, q8h fexofenadine, 180 mg, Oral, Daily FLUoxetine, 20 mg, Oral, Daily gabapentin, 200 mg, Oral, BID insulin lispro, 0-12 Units, SubCUTAneous, 4x daily AC & HS And insulin lispro, 0-12 Units, SubCUTAneous, Nightly [Held by provider] lisinopril, 5 mg, Oral, Daily pantoprazole, 40 mg, Oral, qAM AC Physical Exam: Vitals: 10/11/22 0533 BP: 100/60 Pulse: 103 Resp: 18 Temp: 36.6 C (97.8 F) SpO2: 93% Intake and Output Summary (Last 24 hours) at Date Time Intake/Output Summary (Last 24 hours) at 10/11/2022 0612 Last data filed at 10/11/2022 0555 Gross per 24 hour Intake 3548.5 ml Output 2340 ml Net 1208.5 ml LLE: Dressing C/D/I SILT S/S/SP/DP/T nerve distribution Motor intact DF/PF/EHL Palpable DP pulse Drain 190cc overnight Labs: CBC: Lab Results Component Value Date WBC 14.0 (H) 10/11/2022 HGB 9.7 (L) 10/11/2022 HCT 29.5 (L) 10/11/2022 PLT 207 10/11/2022 BMP: Lab Results Component Value Date NA 135 10/11/2022 K 5.0 10/11/2022 CL 99 10/11/2022 CO2 20 (L) 10/11/2022 BUN 20 (H) 10/11/2022 CREATININE 0.62 10/11/2022 CALCIUM 9.0 10/11/2022 GLUCOSE 323 (H) 10/11/2022 PT/INR: Lab Results Component Value Date PROTIME 10.3 10/10/2022 INR 1.0 10/10/2022 APTT: Lab Results Component Value Date APTT 25.3 10/10/2022 Type and Screen: Lab Results Component Value Date RH POS 10/10/2022 ETHANOL: No results found for: ETOH DRUG SCREEN: No results found for: BARBITURATES, BENZOURQL, COCAINESCRN, METHADU, OPIAU, PCPURINE CRP: No results found for: CRP ESR: No results found for: SEDRATE Rads: Radiological Procedure reviewed. Assessment: 66 y.o. female s/p Left Hip removal of hardware with conversion to COSTA Plan: No plans for further surgical intervention 25% WB LLE in [facility] at all times, please check skin around knee immobilizer every shift for wound breakdown Femoral head sent for permanent path Drain until discharge -> Ancef until drain out Record drain output every shift Transition to duricef for 7 days at discharge Neurovascular checks Lovenox 40mg Daily x30 days PT/OT Pain and medical management per primary Follow-up with Dr. Mares in 4 weeks for recheck Ortho following Luis Causey MD PGY-4 Orthopedic Surgery Pager [phone] * Luis Causey MD - 10/10/2022 7:50 PM EDT Orthopedic Surgery Progress Notes: No plans for further surgical intervention 25% WB LLE in [facility] at all times, please check skin around knee immobilizer every shift Femoral head sent for permanent path Drain until discharge -> Ancef until drain out Record drain output every shift Transition to duricef for 7 days at discharge Neurovascular checks Lovenox 40mg Daily x30 days PT/OT Pain and medical management per primary Follow-up with Dr. Mares in 4 weeks for recheck Ortho following Luis Causey MD PGY-4 Orthopedic Surgery Pager [phone] * Laura Norton RD - 10/10/2022 1:53 PM EDT Nutrition Assessment Type and Reason for Visit: Reassess Nutrition Recommendations/Plan: Advance diet to goal Regular Continue ensure plus TID Please document patients po intakes via flowsheet to accurately assess po adequacy Please obtain weekly weights RD will continue to follow per goals of care and policy Malnutrition Assessment: Malnutrition Status: Moderate malnutrition (per RD 10/05) Context: Chronic Illness Nutrition Assessment: Per chart: Donna is a 66 year old female, PMH significant for AFib, bipolar, dementia, HTN, CAD, DM2, HLD and neuropathy who presents to the ED with left hip pain s/p ORIF in July. She was initially admitted to [facility] for evaluation of possible hardware failure. Patient was transferred here for surgical intervention which is planned for today 10/10. Patient reports she has been consuming 100% of meals the past 6 days and is drinking ensure 3x/day.Family at bedside notes she is eating better as well. Intakes when documented is >75%. She this is noted to be much improvement since patient reports poor appetite for the past 6 weeks. Bed weightnot working, needs a new weight. Estimated Daily Nutrient Needs: Energy Requirements Based On: Kcal/kg Weight Used for Energy Requirements: [place] Weight for Energy Calculation (kg): 54.5 kg Total Energy Requirements (kcals/day): 1363-1635kcals/day Weight Used for Protein Requirements: [place] Weight in Kg Used for Protein Requirements: 54.5 kg Estimated Total Protein (g/day): 55-65gm pro/day Estimated Daily Total Fluid (ml/day): per MD recommendations Nutrition Related Findings: Meds/labs reviewed. Raji Scale Score: 14 .Wound Type: None Net IO Since Admission: -1,654.5 mL [10/10/22 1400] Peripheral Vascular (WDL): Within Defined Limits Last BM Date: 10/09/22 Missing teeth BMP: Recent Labs 10/08/22 0012 10/09/22 0153 10/10/22 0032 NA 136 134* 135 K 4.9 4.8 4.7 CL 102 100 101 CO2 23 25 25 BUN 25* 25* 24* CREATININE 0.89 0.70 0.72 GLUCOSE 179* 219* 268* CALCIUM 8.9 8.6 8.9 Recent Labs 10/09/22 0729 10/09/22 1210 10/09/22 1654 10/09/22 2003 10/10/22 0805 10/10/22 1156 POCGLU 178* 248* 229* 253* 213* 159* Lab Results Component Value Date HGBA1C 5.3 10/04/2022 Lab Results Component Value Date VITD25 68 10/03/2022 No results found for: THIAMINE, FOLATE, ZINC Current Nutrition Therapies: NPO diet Current Oral Intake Average Meal Intake: 76-100% Average Supplements Intake: 76-100% Anthropometric Measures: Height: 162.6 cm (5' 4) Current Body Weight: 65.8 kg (145 lb) (stated 10/03, attempted to obtain bedscale however scale reading 'err3') Weight Source: Stated Admission Body Weight: 65.8 kg (145 lb) (stated 10/03) Usual Body Weight: 79.4 kg (175 lb) (pt states she was 175# 'on August 05 the day of my fall', there is no weight history in chart for review) % Weight Change (Calculated): -17.1 [place] Body Weight (lbs) (Calculated): 120 lbs [place] Body Weight (Kg) (Calculated): 55 kg % [place] Body Weight (Calculated): 120.8 % BMI (kg/m2) (Calculated): 24.9 Weight Adjustment For: No Adjustment BMI Categories: Normal Weight (BMI 22.0 to 24.9) age over 65 Wt Readings from Last 10 Encounters: 10/09/22 65.6 kg (144 lb 10 oz) 10/03/22 65.8 kg (145 lb) Nutrition Interventions: Nutrition Education/Counseling: No recommendation at this time Coordination of Nutrition Care: Continue to monitor while inpatient Goals: Previous Goal Met: Goal(s) Achieved Goals: PO intake 75% or greater Nutrition Monitoring and Evaluation: Behavioral-Environmental Outcomes: None Identified Food/Nutrient Intake Outcomes: Food and Nutrient Intake, Supplement Intake Physical Signs/Symptoms Outcomes: Biochemical Data, Nutrition Focused Physical Findings, Fluid Status or Edema, Skin, Weight Discharge Planning: Continue Oral Nutrition Supplement, Continue current diet Laura Norton MS, RD Contact: [phone] or [employer] chat * Gayle Herbert MD - 10/10/2022 1:45 PM EDT Images from the original note were not included. Hospitalist Progress Note 10/10/2022 Subjective: Admit Date: 10/03/2022 PCP: CICI CALDERON Room#: OR/NONE Interval History: Donna is a 66 year old female, who presents to the ED with left hip pain s/p ORIF in July. She was initially admitted to [facility] for evaluation of possible hardware failure. Patient was transferred here for surgical intervention which is planned on the . There is concern for migration of screw proximally into the retroperitoneum and vascular surgery is on standby. She states that she has not ambulated much since the surgery in July. 10/05/2022: Patient alert, chart reviewed, denies any headache, dizziness, chest pain. Prior to surgery she has been ambulatory and denies any rate limiting factors including any exertional chest painor shortness of breath. She is a non-smoker. 10/06- pt lying on bed, denies any complaints at this time, no acute issues overnt. 10/07- pt reports pain in her bilateral lower ext due to neuropathy, no other complaints, no acute issues overnt. 10/08- pt denies any complaints at this time, waiting for surgery on Sunday, no acute issues overnt. 10/09- pt lying in bed, denies any complaints at this time, plan for surgery in am. 10/10- pt reports feeling anxious, scheduled for procedure today, no acute issues overnt, family at bedside. Objective: Vitals: BP 125/60 Pulse 71 Temp 37 C (98.6 F) (Temporal) Resp 16 Ht 5' 4 (1.626 m) Wt 144 lb 10 oz (65.6 kg) SpO2 96% BMI 24.82 kg/m Pulse Ox: SpO2 Av.5 % Min: 92 % Max: 97 % Supplemental O2: Pertinent physical exam: Patient is alert, awake, oriented x 3 No pallor, Icterus No JVD Heart S1 S2 No murmurs Lungs clear to auscultation Abdomen soft non distended no organomegaly, lower abd ulcer seen, no drainage, or erythema No pedal edema, scd's in place, no cyanosis No focal neurological deficits Assessment Acute, acute on chronic, unstable/uncontrolled chronic problems: Left hip pain with hardware failure Migrated screw into the retroperitoneum Hyperkalemia- resolved Stable chronic problems affecting care, new non-acute diagnoses: Hypertension DM2 Neuropathy Bipolar disorder. MDM/Plan Follow-up with orthopedics, plan is for surgery today at 2 pm Patient is medically optimized to undergo surgery. We will continue to follow closely perioperatively. Potassium improved Blood pressure running low, asymptomatic, hold lisinopril 5 mg daily, and Coreg for now Monitor blood sugars closely Continue sliding scale coverage Gabapentin helping with neuropathy - DVT prophylaxis: SCDs and encourage ambulation, no anticoagulants per orthopedics Advance Directive: Full Code Anticipated Discharge - Date - TBD - Location -TBD - Pending the following -surgical intervention on 10/10/2022 NPO diet 24HR INTAKE/OUTPUT: Intake/Output Summary (Last 24 hours) at 10/10/2022 1345 Last data filed at 10/10/2022 0830 Gross per 24 hour Intake 60 ml Output 1700 ml Net -1640 ml LABS: CBC: Recent Labs 10/08/22 0012 10/09/22 0153 10/10/22 0032 WBC 12.9* 13.7* 10.9* RBC 3.87 3.60* 3.78* HGB 11.7 10.7* 11.3* HCT 35.9 32.3* 34.5* MCV 92.8 89.8 91.2 RDW 14.7* 14.4 14.2 PLT 353 329 302 BMP: Recent Labs 10/08/22 0012 10/09/22 0153 10/10/22 0032 NA 136 134* 135 K 4.9 4.8 4.7 CL 102 100 101 CO2 23 25 25 BUN 25* 25* 24* CREATININE 0.89 0.70 0.72 GLUCOSE 179* 219* 268* CALCIUM 8.9 8.6 8.9 ANIONGAP 11 10 9 LIVER PROFILE: No results for input(s): AST, ALT, BILITOT, ALKPHOS, PROT in the last 72 hours. No lab exists for component: LABALBU PT/INR: Recent Labs 10/10/2231 PROTIME 10.3 INR 1.0 CARDIAC ENZYMES: No results for input(s): TROPONINI in the last 72 hours. Procalcitonin: No results found for: PROCAL Medications: Scheduled [APR Hold] atorvastatin, 20 mg, Oral, Daily [APR Hold] busPIRone, 15 mg, Oral, BID [Held by provider] carvedilol, 3.125 mg, Oral, BID WC [APR Hold] fexofenadine, 180 mg, Oral, Daily [APR Hold] FLUoxetine, 20 mg, Oral, Daily [APR Hold] gabapentin, 200 mg, Oral, BID [APR Hold] insulin lispro, 0-12 Units, SubCUTAneous, 4x daily AC & HS And [APR Hold] insulin lispro, 0-12 Units, SubCUTAneous, Nightly [Held by provider] lisinopril, 5 mg, Oral, Daily [APR Hold] pantoprazole, 40 mg, Oral, qAM AC PRN PRN medications: [APR Hold] acetaminophen OR [APR Hold] acetaminophen, [APR Hold] dextrose, [APR Hold] dextrose, [APR Hold] glucagon (rDNA), [APR Hold] glucose, [APR Hold] morphine sulfate, [APR Hold] ondansetron ODT OR [APR Hold] ondansetron, [APR Hold] polyethylene glycol (PEG) 3350, [APRHold] traMADol Extended Emergency Contact Information Primary Emergency Contact: Joo Bernstein Relation: None Gayle Herbert MD Division of Hospitalist Medicine [facility] * Senia Griffith MD - 10/10/2022 7:06 AM EDT Department of Surgery Vascular Daily Progress Note PATIENT NAME: Donna Marsh : 1955 ATTENDING PHYSICIAN: Gayle Herbert MD ADMIT DATE: 10/03/2022 TODAY'S DATE: 10/10/2022 SUBJECTIVE NAOE VSS Pain controlled Daughter in room Ready for surgery today OBJECTIVE VITALS: BP 101/65 Pulse 94 Temp (!) 35.8 C (96.4 F) (Temporal) Resp 18 Ht 1.626 m (5' 4) Wt 65.6 kg (144 lb 10 oz) SpO2 93% BMI 24.82 kg/m PHYSICAL EXAM: GENERAL: NAD, resting in bed EYES: DELANO, EOMI HEENT: Moist mucous membranes NECK: Supple, full ROM NEURO: No focal neuro defectis, motor and sensation grossly intact PULMONARY: Respiratory effort easy and unlabored, chest non-tender CARDIO:RRR, extremities well perfused Vascular: RUE:palp radial LUE: palp radial R Fem:palp L Fem:palp RLE: DP palp PT palp LLE: DP palp PT palp ABDOMEN:SNTND : Normal external genitalia EXTREMITIES: Skin warm and well perfused, no cyanosis atraumatic PSYCH: Affect normal, appropriate judgement SKIN: warm and dry INTAKE/OUTPUT: @IODETAILS@ I/O last 3 completed shifts: In: - (0 mL/kg) Out: 1700 (25.9 mL/kg) [Urine:1700 (0.7 mL/kg/hr)] Weight: 65.6 kg No intake/output data recorded. Data Recent Labs 10/08/22 0012 10/09/22 0153 10/10/22 0032 WBC 12.9* 13.7* 10.9* HGB 11.7 10.7* 11.3* HCT 35.9 32.3* 34.5* PLT 353 329 302 Recent Labs 10/08/22 0012 10/09/22 0153 10/10/22 0032 NA 136 134* 135 K 4.9 4.8 4.7 CL 102 100 101 CO2 23 25 25 BUN 25* 25* 24* CREATININE 0.89 0.70 0.72 GLUCOSE 179* 219* 268* No results for input(s): AST, ALT, BILITOT, ALKPHOS in the last 72 hours. No lab exists for component: ALB Imaging Pertinent imaging reviewed. Current Inpatient Medications atorvastatin, 20 mg, Oral, Daily busPIRone, 15 mg, Oral, BID [Held by provider] carvedilol, 3.125 mg, Oral, BID WC fexofenadine, 180 mg, Oral, Daily FLUoxetine, 20 mg, Oral, Daily gabapentin, 200 mg, Oral, BID insulin lispro, 0-12 Units, SubCUTAneous, 4x daily AC & HS And insulin lispro, 0-12 Units, SubCUTAneous, Nightly [Held by provider] lisinopril, 5 mg, Oral, Daily pantoprazole, 40 mg, Oral, qAM AC PRN medications: acetaminophen OR acetaminophen, dextrose, dextrose, glucagon (rDNA), glucose, morphine sulfate, ondansetron ODT OR ondansetron, polyethylene glycol (PEG) 3350, traMADol ASSESSMENT AND PLAN 66 y.o. female with L cephalomedullary nail lying directoly adjacent to left iliac artery. Orthopedic surgery planning to remove nail in OR tomorrow and requesting vascular surgery availability. -Consented for possible endovascular intervention of left iliac artery -will be on standby for procedure today -rest of care per ortho/medicine -wdw Dr. Tara Griffith MD 10/10/2022 7:06 AM * Home Last MD - 10/10/2022 6:23 AM EDT Images from the original note were not included. [address] [place] [id number] Dept: [phone] Adult Orthopaedic Service Patient Name: Donna Marsh Date of : 1955 Date: 10/10/22 Subjective: NAEON, patient is doing well, their pain is controlled. She has not been out of bed. They deny headache, nausea, vomiting, chest pain, shortness of breath, fevers, chills, new numbness, new tingling,new weakness, no concerns or questions. Patient daughter said her morphine/fentanyl once affected the patient's mental status and they requested that it be documented. Ready for surgery. Medications: atorvastatin, 20 mg, Oral, Daily busPIRone, 15 mg, Oral, BID [Held by provider] carvedilol, 3.125 mg, Oral, BID WC fexofenadine, 180 mg, Oral, Daily FLUoxetine, 20 mg, Oral, Daily gabapentin, 200 mg, Oral, BID insulin lispro, 0-12 Units, SubCUTAneous, 4x daily AC & HS And insulin lispro, 0-12 Units, SubCUTAneous, Nightly [Held by provider] lisinopril, 5 mg, Oral, Daily pantoprazole, 40 mg, Oral, qAM AC Physical Exam: Vitals: 10/09/222004 BP: 101/65 Pulse: 94 Resp: 18 Temp: (!) 35.8 C (96.4 F) SpO2: 93% Intake and Output Summary (Last 24 hours) at Date Time Intake/Output Summary (Last 24 hours) at 10/10/2022622 Last data filed at 10/10/2022 0600 Gross per 24 hour Intake -- Output 1700 ml Net -1700 ml Left Lower Extremity: TTP at distal femur and hip Skin intact, no evidence of erythema, infection or previous surgical scars +SILT Salazar/Sa/SP/DP/Tib distributions +DF/EHL/PF motor function intact DP palpable Negative Devan's sign, no calf tenderness Labs: CBC: Lab Results Component Value Date WBC 10.9 (H) 10/10/2022 HGB 11.3 (L) 10/10/2022 HCT 34.5 (L) 10/10/2022 PLT 302 10/10/2022 BMP: Lab Results Component Value Date NA 135 10/10/2022 K 4.7 10/10/2022 CL 101 10/10/2022 CO2 25 10/10/2022 BUN 24 (H) 10/10/2022 CREATININE 0.72 10/10/2022 CALCIUM 8.9 10/10/2022 GLUCOSE 268 (H) 10/10/2022 PT/INR: Lab Results Component Value Date PROTIME 10.3 10/10/2022 INR 1.0 10/10/2022 APTT: Lab Results Component Value Date APTT 25.3 10/10/2022 Type and Screen: Lab Results Component Value Date RH POS 10/10/2022 ETHANOL: No results found for: ETOH DRUG SCREEN: No results found for: BARBITURATES, BENZOURQL, COCAINESCRN, METHADU, OPIAU, PCPURINE CRP: No results found for: CRP ESR: No results found for: SEDRATE Rads: Radiological Procedure reviewed. Assessment: Donna is a 66 y.o.female status post left cephalomedullary nail for peritrochanteric hip fracture on08/06/2022 with interval complete hardware failure and fracture collapse. Plan: -Plan for OR on today for L hip removal of hardware and revision COSTA -NPO -Cleared -Consented, consent in chart -Timed labs complete -Wound care consult for right sided pannus wound -Ice -Bedrest -NWB LLE -Admitted to medicine -Pain control & medical management per primary -Please hold DVT prophylaxis in anticipation of OR -Please comment on clearance in case of OR, page ortho applications intern with clearance status -Orthopaedic surgery will follow. Please page applications intern orthopaedic resident for questions or concerns. Home Last MD PGY-2, Orthopaedic Surgery 10/10/2022 6:27 AM * Gayle Herbert MD - 10/09/2022 2:37 PM EDT Images from the original note were not included. Hospitalist Progress Note 10/09/2022 Subjective: Admit Date: 10/03/2022 PCP: CICI CALDERON Room#: [id number]/[id number] A Interval History: Donna is a 66 year old female, who presents to the ED with left hip pain s/p ORIF in July. She was initially admitted to [facility] for evaluation of possible hardware failure. Patient was transferred here for surgical intervention which is planned on the . There is concern for migration of screw proximally into the retroperitoneum and vascular surgery is on standby. She states that she has not ambulated much since the surgery in July. 10/05/2022: Patient alert, chart reviewed, denies any headache, dizziness, chest pain. Prior to surgery she has been ambulatory and denies any rate limiting factors including any exertional chest painor shortness of breath. She is a non-smoker. 10/06- pt lying on bed, denies any complaints at this time, no acute issues overnt. 10/07- pt reports pain in her bilateral lower ext due to neuropathy, no other complaints, no acute issues overnt. 10/08- pt denies any complaints at this time, waiting for surgery on Sunday, no acute issues overnt. 10/09- pt lying in bed, denies any complaints at this time, plan for surgery in am. Objective: Vitals: BP (!) 135/108 (BP Location: Right arm, Patient Position: Lying) Pulse 89 Temp 36.9 C (98.4 F) (Temporal) Resp 16 Ht 5' 4 (1.626 m) Wt 144 lb 10 oz (65.6 kg) SpO2 95% BMI 24.82kg/m Pulse Ox: SpO2 Av.5 % Min: 95 % Max: 96 % Supplemental O2: Pertinent physical exam: Patient is alert, awake, oriented x 3 No pallor, Icterus No JVD Heart S1 S2 No murmurs Lungs clear to auscultation Abdomen soft non distended no organomegaly, lower abd ulcer seen, no drainage, or erythema No pedal edema, scd's in place, no cyanosis No focal neurological deficits Assessment Acute, acute on chronic, unstable/uncontrolled chronic problems: Left hip pain with hardware failure Migrated screw into the retroperitoneum Hyperkalemia- resolved Stable chronic problems affecting care, new non-acute diagnoses: Hypertension DM2 Neuropathy Bipolar disorder. MDM/Plan Follow-up with orthopedics, plan is for surgery on 10/10. Vascular surgery is on standby. Patient ismedically optimized to undergo surgery. We will continue to follow closely perioperatively. Potassium improved Blood pressure running low, asymptomatic, lisinopril 5 mg daily, and Coreg for now Monitor blood sugars closely Continue sliding scale coverage Gabapentin helping with neuropathy - DVT prophylaxis: SCDs and encourage ambulation, no anticoagulants per orthopedics Advance Directive: Full Code Anticipated Discharge - Date - TBD - Location -TBD - Pending the following -surgical intervention on 10/10/2022 Adult diet Regular NPO diet 24HR INTAKE/OUTPUT: No intake or output data in the 24 hours ending 10/09/22 1437 LABS: CBC: Recent Labs 10/07/22 0122 10/08/22 0012 10/09/22 0153 WBC 11.3* 12.9* 13.7* RBC 4.02 3.87 3.60* HGB 12.0 11.7 10.7* HCT 36.4 35.9 32.3* MCV 90.4 92.8 89.8 RDW 14.5 14.7* 14.4 PLT 382 353 329 BMP: Recent Labs 10/07/22 0122 10/08/22 0012 10/09/22 0153 NA 136 136 134* K 4.4 4.9 4.8 CL 103 102 100 CO2 23 23 25 BUN 26* 25* 25* CREATININE 0.78 0.89 0.70 GLUCOSE 130* 179* 219* CALCIUM 9.2 8.9 8.6 ANIONGAP 10 11 10 LIVER PROFILE: No results for input(s): AST, ALT, BILITOT, ALKPHOS, PROT in the last 72 hours. No lab exists for component: LABALBU PT/INR: No results for input(s): PROTIME, INR in the last 72 hours. CARDIAC ENZYMES: No results for input(s): TROPONINI in the last 72 hours. Procalcitonin: No results found for: PROCAL Medications: Scheduled atorvastatin, 20 mg, Oral, Daily busPIRone, 15 mg, Oral, BID [Held by provider] carvedilol, 3.125 mg, Oral, BID WC fexofenadine, 180 mg, Oral, Daily FLUoxetine, 20 mg, Oral, Daily gabapentin, 200 mg, Oral, BID insulin lispro, 0-12 Units, SubCUTAneous, 4x daily AC & HS And insulin lispro, 0-12 Units, SubCUTAneous, Nightly [Held by provider] lisinopril, 5 mg, Oral, Daily pantoprazole, 40 mg, Oral, qAM AC PRN PRN medications: acetaminophen OR acetaminophen, dextrose, dextrose, glucagon (rDNA), glucose, morphine sulfate, ondansetron ODT OR ondansetron, polyethylene glycol (PEG) 3350, traMADol Extended Emergency Contact Information Primary Emergency Contact: Joo Bernstein Relation: None Gayle Herbert MD Division of Hospitalist Medicine [facility] * Alvarez Guerrero MD - 10/09/2022 1:03 PM EDT Department of Surgery Vascular Daily Progress Note PATIENT NAME: Donna Marsh : 1955 ATTENDING PHYSICIAN: Gayle Herbert MD ADMIT DATE: 10/03/2022 TODAY'S DATE: 10/09/2022 SUBJECTIVE NAOE VSS Pain controlled Ready for surgery Reports she has not ambulated since July OBJECTIVE VITALS: BP (!) 135/108 (BP Location: Right arm, Patient Position: Lying) Pulse 89 Temp 36.9 C (98.4 F) (Temporal) Resp 16 Ht 5' 4 (1.626 m) Wt 144 lb 10 oz (65.6 kg) SpO2 95% BMI 24.82kg/m PHYSICAL EXAM: GENERAL: NAD, resting in bed EYES: DELANO, EOMI HEENT: Moist mucous membranes NECK: Supple, full ROM NEURO: No focal neuro defectis, motor and sensation grossly intact PULMONARY: Respiratory effort easy and unlabored, chest non-tender CARDIO:RRR, extremities well perfused Vascular: RUE:palp radial LUE: palp radial R Fem:palp L Fem:palp RLE: DP palp PT palp LLE: DP palp PT palp ABDOMEN:SNTND : Normal external genitalia EXTREMITIES: Skin warm and well perfused, no cyanosis atraumatic PSYCH: Affect normal, appropriate judgement SKIN: warm and dry INTAKE/OUTPUT: @IODETAILS@ I/O last 3 completed shifts: In: 15.5 (0.2 mL/kg) [IV Piggyback:15.5] Out: 450 (6.9 mL/kg) [Urine:450 (0.2 mL/kg/hr)] Weight: 65.6 kg No intake/output data recorded. Data Recent Labs 10/07/22 0122 10/08/22 0012 10/09/22 0153 WBC 11.3* 12.9* 13.7* HGB 12.0 11.7 10.7* HCT 36.4 35.9 32.3* PLT 382 353 329 Recent Labs 10/07/22 0122 10/08/22 0012 10/09/22 0153 NA 136 136 134* K 4.4 4.9 4.8 CL 103 102 100 CO2 23 25 BUN 26* 25* 25* CREATININE 0.78 0.89 0.70 GLUCOSE 130* 179* 219* No results for input(s): AST, ALT, BILITOT, ALKPHOS in the last 72 hours. No lab exists for component: ALB Imaging Pertinent imaging reviewed. Current Inpatient Medications atorvastatin, 20 mg, Oral, Daily busPIRone, 15 mg, Oral, BID [Held by provider] carvedilol, 3.125 mg, Oral, BID WC fexofenadine, 180 mg, Oral, Daily FLUoxetine, 20 mg, Oral, Daily gabapentin, 200 mg, Oral, BID insulin lispro, 0-12 Units, SubCUTAneous, 4x daily AC & HS And insulin lispro, 0-12 Units, SubCUTAneous, Nightly [Held by provider] lisinopril, 5 mg, Oral, Daily pantoprazole, 40 mg, Oral, qAM AC PRN medications: acetaminophen OR acetaminophen, dextrose, dextrose, glucagon (rDNA), glucose, morphine sulfate, ondansetron ODT OR ondansetron, polyethylene glycol (PEG) 3350, traMADol ASSESSMENT AND PLAN 66 y.o. female with L cephalomedullary nail lying directoly adjacent to left iliac artery. Orthopedic surgery planning to remove nail in OR tomorrow and requesting vascular surgery availability. -NPO at midnight. Consented for possible endovascular intervention of left iliac artery -rest of care per ortho/medicine -wdw Dr. Tara Guerrero MD 10/09/2022 1:03 PM * Amaya Penn APRN - NETWORK SYSTEMS OPERATOR - 10/09/2022 12:56 PM EDT Images from the original note were not included. [facility] Wound Care Progress Note Donna Marsh AGE: 66 y.o. GENDER: female : 1955 Subjective: HISTORY of PRESENT ILLNESS HPI Donna Marsh is a 66 y.o. female who presents for a wound care follow up. HPI: Ms. Marsh is a 66 y.o. female who is admitted to the hospital for hip hardware malposition. Patient underwent short cephalomedually nail placement on 08/06. After imaging was obtained in the ortho office yesterday, she was sent to [place] ED for further evaluation, imaging, and treatment. CTpelvis and further contrasted imaging demonstrated migration of that lag screw proximally into the retroperitoneum, in very close proximity to the left external iliac artery. Vascular surgery contacted and is planning for surgery. Wound Care consulted for abdomen ulcer. Dressing applied per wound care service. PAST MEDICAL HISTORY Past Medical History: Diagnosis Date Bipolar 1 disorder (HCC) Diabetes mellitus (HCC) Hyperlipidemia Hypertension Neuropathy PAST SURGICAL HISTORY Past Surgical History: Procedure Laterality Date CARPAL TUNNEL RELEASE HYSTERECTOMY ORIF DISTAL RADIUS FRACTURE (HISTORICAL) Left 08/06/2022 TONSILLECTOMY (HISTORICAL) FAMILY HISTORY No family history on file. SOCIAL HISTORY Social History Tobacco Use Smoking status: Former Packs/day: 1.00 Years: 15.00 Pack years: 15.00 Types: Cigarettes Quit date: 07/26/2022 Years since quittin.2 Smokeless tobacco: Never Substance Use Topics Alcohol use: No Drug use: Yes Types: Marijuana ALLERGIES Allergies Allergen Reactions Codeine Other reaction(s): Intolerance, Itching Itching Fentanyl Other reaction(s): confusion Morphine Other Loss of Memory Nsaids Rash MEDICATIONS No current facility-administered medications on file prior to encounter. Current Outpatient Medications on File Prior to Encounter Medication Sig Dispense Refill acetaminophen (Tylenol Extra Strength) 500 MG tablet Take by mouth. alendronate (Fosamax) 70 MG tablet atorvastatin (Lipitor) 20 MG tablet Take 20 mg by mouth. bisacodyl (Dulcolax) 10 MG suppository Insert into the rectum. busPIRone (Buspar) 15 MG tablet carvedilol (Coreg) 3.125 MG tablet Take by mouth. celecoxib (CeleBREX) 200 MG capsule Take 200 mg by mouth. ergocalciferol (Vitamin D-2) 1.25 MG (62926 UT) capsule Take by mouth. fexofenadine (Roc) 180 MG tablet Take by mouth. FLUoxetine (PROzac) 20 MG capsule Take 20 mg by mouth in the morning. glipiZIDE (Glucotrol) 10 MG tablet Take by mouth. lisinopril 20 MG tablet Take by mouth. omeprazole (PriLOSEC) [address] capsule Take by mouth. oxybutynin XL (Ditropan-XL) 10 MG 24 hr tablet oxyCODONE (Roxicodone) 5 MG immediate release tablet Take 5 mg by mouth. sodium phosphate (Fleets) 7-19 GM/118ML enema enema Insert into the rectum. traMADol (Ultram) 50 MG tablet Take by mouth. REVIEW OF SYSTEMS Pertinent items are noted in HPI. Objective: BP (!) 135/108 (BP Location: Right arm, Patient Position: Lying) Pulse 89 Temp 36.9 C (98.4 F) (Temporal) Resp 16 Ht 1.626 m (5' 4) Wt 65.6 kg (144 lb 10 oz) SpO2 95% BMI 24.82 kg/m PHYSICAL EXAM General appearance: in no apparent distress, well developed and well nourished, alert, oriented times 3, and cooperative, obese Skin: warm and dry Pulmonary: Normal effort, no respiratory distress, no cyanosis Abdomen: soft, nontender, and nondistended Right lower abdomen: 1.0cmx1.0cmxUTD. 100% dry eschar present. No drainage. Periwound intact and fragile LABS CBC: Lab Results Component Value Date WBC 13.7 (H) 10/09/2022 HGB 10.7 (L) 10/09/2022 HCT 32.3 (L) 10/09/2022 MCV 89.8 10/09/2022 PLT 329 10/09/2022 BMP: Lab Results Component Value Date NA 134 (L) 10/09/2022 K 4.8 10/09/2022 CL 100 10/09/2022 CO2 25 10/09/2022 BUN 25 (H) 10/09/2022 CREATININE 0.70 10/09/2022 PT/INR: No results found for: PROTIME, INR Prealbumin: No results found for: PREALBUMIN Albumin:No components found for: LABALBU Sed Rate: No results found for: SEDRATE Micro: No components found for: BC Assessment/Plan: Right lower abdomen: Chronic non-healing non pressure ulcer - Apply skin prep then leave DIRECTOR BUSINESS INTELLIGENCE daily and PRN Nutritional support Wound Care to follow Recommend to follow up at [facility] wound care center after hospital discharge. Any questions or concerns please secure chat [facility] wound/ostomy. Thank you for the consult! I personally obtained the roque and critical portions of the history and physical exam. I reviewed the labs, imaging studies, and electronic medical record. I reviewed the chart documentation and discussed the patient with treatment team members. I have edited the note to reflect my clinical findingsand my assessment and plan. Please note, the time of this note does not reflect the time I saw thispatient today, but the time of this documentaton. Portions of this note including HPI, ROS, impression/plan, and examination may have been copied forward from admission to today as to provide important historical information essential in contributing to medical decision making. Documentation has been reviewed and edited as necessary to support clinical decision making for today's visit and to reflect my own independent evaluation of this patient. Decision making for today's visit and to reflectmy own independent evaluation of this patient. * Gayle Herbert MD - 10/08/2022 1:23 PM EDT Images from the original note were not included. Hospitalist Progress Note 10/08/2022 Subjective: Admit Date: 10/03/2022 PCP: CICI CALDERON Room#: [id number]/[id number] A Interval History: Donna is a 66 year old female, who presents to the ED with left hip pain s/p ORIF in July. She was initially admitted to [facility] for evaluation of possible hardware failure. Patient was transferred here for surgical intervention which is planned on the . There is concern for migration of screw proximally into the retroperitoneum and vascular surgery is on standby. She states that she has not ambulated much since the surgery in July. 10/05/2022: Patient alert, chart reviewed, denies any headache, dizziness, chest pain. Prior to surgery she has been ambulatory and denies any rate limiting factors including any exertional chest painor shortness of breath. She is a non-smoker. 10/06- pt lying on bed, denies any complaints at this time, no acute issues overnt. 10/07- pt reports pain in her bilateral lower ext due to neuropathy, no other complaints, no acute issues overnt. 10/08- pt denies any complaints at this time, waiting for surgery on Sunday, no acute issues overnt. Objective: Vitals: BP 110/60 (BP Location: Left arm, Patient Position: Lying) Pulse 89 Temp 36.4 C (97.5 F) (Temporal) Resp 16 Ht 5' 4 (1.626 m) Wt 145 lb (65.8 kg) SpO2 93% BMI 24.89 kg/m Pulse Ox: SpO2 Av.5 % Min: 93 % Max: 96 % Supplemental O2: Pertinent physical exam: Patient is alert, awake, oriented x 3 No pallor, Icterus No JVD Heart S1 S2 No murmurs Lungs clear to auscultation Abdomen soft non distended no organomegaly, lower abd ulcer seen, no drainage, or erythema No pedal edema, scd's in place, no cyanosis No focal neurological deficits Assessment Acute, acute on chronic, unstable/uncontrolled chronic problems: Left hip pain with hardware failure Migrated screw into the retroperitoneum Hyperkalemia- resolved Stable chronic problems affecting care, new non-acute diagnoses: Hypertension DM2 Neuropathy Bipolar disorder. MDM/Plan Follow-up with orthopedics, plan is for surgery on 10/10. Vascular surgery is on standby. Patient ismedically optimized to undergo surgery. We will continue to follow closely perioperatively. Potassium improved Blood pressure running low, asymptomatic, lisinopril 5 mg daily, and Coreg for now Monitor blood sugars closely Continue sliding scale coverage Gabapentin helping with neuropathy - DVT prophylaxis: SCDs and encourage ambulation, no anticoagulants per orthopedics Advance Directive: Full Code Anticipated Discharge - Date - TBD - Location -TBD - Pending the following -surgical intervention on 10/10/2022 Adult diet Regular NPO diet 24HR INTAKE/OUTPUT: Intake/Output Summary (Last 24 hours) at 10/08/2022 1323 Last data filed at 10/08/2022 0900 Gross per 24 hour Intake 15.5 ml Output 450 ml Net -434.5 ml LABS: CBC: Recent Labs 10/06/22 0547 10/07/22 0122 10/08/22 0012 WBC 12.2* 11.3* 12.9* RBC 3.90 4.02 3.87 HGB 11.5* 12.0 11.7 HCT 36.0 36.4 35.9 MCV 92.5 90.4 92.8 RDW 14.7* 14.5 14.7* PLT 350 382 353 BMP: Recent Labs 10/06/22 0547 10/07/22 0122 10/08/22 0012 NA 138 136 136 K 4.8 4.4 4.9 CL 103 103 102 CO2 BUN 27* 26* 25* CREATININE 0.72 0.78 0.89 GLUCOSE 114* 130* 179* CALCIUM 9.0 9.2 8.9 ANIONGAP 11 10 11 LIVER PROFILE: No results for input(s): AST, ALT, BILITOT, ALKPHOS, PROT in the last 72 hours. No lab exists for component: LABALBU PT/INR: No results for input(s): PROTIME, INR in the last 72 hours. CARDIAC ENZYMES: No results for input(s): TROPONINI in the last 72 hours. Procalcitonin: No results found for: PROCAL Medications: Scheduled atorvastatin, 20 mg, Oral, Daily busPIRone, 15 mg, Oral, BID [Held by provider] carvedilol, 3.125 mg, Oral, BID WC cetirizine, 10 mg, Oral, Daily FLUoxetine, 20 mg, Oral, Daily gabapentin, 200 mg, Oral, BID insulin lispro, 0-12 Units, SubCUTAneous, 4x daily AC & HS And insulin lispro, 0-12 Units, SubCUTAneous, Nightly [Held by provider] lisinopril, 5 mg, Oral, Daily pantoprazole, 40 mg, Oral, qAM AC PRN PRN medications: acetaminophen OR acetaminophen, dextrose, dextrose, glucagon (rDNA), glucose, morphine sulfate, ondansetron ODT OR ondansetron, polyethylene glycol (PEG) 3350, traMADol Extended Emergency Contact Information Primary Emergency Contact: Joo Bernstein Relation: None Gayle Herbert MD Division of Hospitalist Medicine [facility] * Gayle Herbert MD - 10/07/2022 1:22 PM EDT Images from the original note were not included. Hospitalist Progress Note 10/07/2022 Subjective: Admit Date: 10/03/2022 PCP: CICI CALDERON Room#: [id number]/[id number] A Interval History: Donna is a 66 year old female, who presents to the ED with left hip pain s/p ORIF in July. She was initially admitted to [facility] for evaluation of possible hardware failure. Patient was transferred here for surgical intervention which is planned on the . There is concern for migration of screw proximally into the retroperitoneum and vascular surgery is on standby. She states that she has not ambulated much since the surgery in July. 10/05/2022: Patient alert, chart reviewed, denies any headache, dizziness, chest pain. Prior to surgery she has been ambulatory and denies any rate limiting factors including any exertional chest painor shortness of breath. She is a non-smoker. 10/06- pt lying on bed, denies any complaints at this time, no acute issues overnt. 10/07- pt reports pain in her bilateral lower ext due to neuropathy, no other complaints, no acute issues overnt. Objective: Vitals: BP 118/85 Pulse 100 Temp 36.4 C (97.5 F) (Temporal) Resp 18 Ht 5' 4 (1.626 m) Wt145 lb (65.8 kg) SpO2 92% BMI 24.89 kg/m Pulse Ox: SpO2 Av.5 % Min: 92 % Max: 95 % Supplemental O2: Pertinent physical exam: Patient is alert, awake, oriented x 3 No pallor, Icterus No JVD Heart S1 S2 No murmurs Lungs clear to auscultation Abdomen soft non distended no organomegaly, lower abd ulcer seen, no drainage, or erythema No pedal edema, scd's in place, no cyanosis No focal neurological deficits Assessment Acute, acute on chronic, unstable/uncontrolled chronic problems: Left hip pain with hardware failure Migrated screw into the retroperitoneum Hyperkalemia- resolved Stable chronic problems affecting care, new non-acute diagnoses: Hypertension DM2 Neuropathy Bipolar disorder. MDM/Plan Follow-up with orthopedics, plan is for surgery on 10/10. Vascular surgery is on standby. Patient ismedically optimized to undergo surgery. We will continue to follow closely perioperatively. Potassium improved Blood pressure running low, asymptomatic, lisinopril 5 mg daily, and Coreg for now Monitor blood sugars closely Continue sliding scale coverage - DVT prophylaxis: SCDs and encourage ambulation, no anticoagulants per orthopedics Advance Directive: Full Code Anticipated Discharge - Date - TBD - Location -TBD - Pending the following -surgical intervention on 10/10/2022 Adult diet Regular NPO diet 24HR INTAKE/OUTPUT: Intake/Output Summary (Last 24 hours) at 10/07/2022 1322 Last data filed at 10/06/2022 1802 Gross per 24 hour Intake 400 ml Output 300 ml Net 100 ml LABS: CBC: Recent Labs 10/05/22 0210 10/06/22 0547 10/07/22 0122 WBC 12.1* 12.2* 11.3* RBC 3.97 3.90 4.02 HGB 12.0 11.5* 12.0 HCT 36.6 36.0 36.4 MCV 92.2 92.5 90.4 RDW 14.7* 14.7* 14.5 PLT 354 350 382 BMP: Recent Labs 10/05/22 0210 10/06/22 0547 10/07/22 0122 NA 138 138 136 K 5.1 4.8 4.4 CL 102 103 103 CO2 27 24 23 BUN 27* 27* 26* CREATININE 0.88 0.72 0.78 GLUCOSE 95 114* 130* CALCIUM 9.2 9.0 9.2 ANIONGAP 9 11 10 LIVER PROFILE: No results for input(s): AST, ALT, BILITOT, ALKPHOS, PROT in the last 72 hours. No lab exists for component: LABALBU PT/INR: No results for input(s): PROTIME, INR in the last 72 hours. CARDIAC ENZYMES: No results for input(s): TROPONINI in the last 72 hours. Procalcitonin: No results found for: PROCAL Medications: Scheduled atorvastatin, 20 mg, Oral, Daily busPIRone, 15 mg, Oral, BID carvedilol, 3.125 mg, Oral, BID WC cetirizine, 10 mg, Oral, Daily FLUoxetine, 20 mg, Oral, Daily gabapentin, 200 mg, Oral, BID insulin lispro, 0-12 Units, SubCUTAneous, 4x daily AC & HS And insulin lispro, 0-12 Units, SubCUTAneous, Nightly lisinopril, 5 mg, Oral, Daily pantoprazole, 40 mg, Oral, qAM AC PRN PRN medications: acetaminophen OR acetaminophen, dextrose, dextrose, glucagon (rDNA), glucose, morphine sulfate, ondansetron ODT OR ondansetron, polyethylene glycol (PEG) 3350, traMADol Extended Emergency Contact Information Primary Emergency Contact: Joo Bernstein Relation: None Gayle Herbert MD Division of Hospitalist Medicine [facility] * Gayle Herbert MD - 10/06/2022 1:59 PM EDT Images from the original note were not included. Hospitalist Progress Note 10/06/2022 Subjective: Admit Date: 10/03/2022 PCP: CICI CALDERON Room#: [id number] A Interval History: Donna is a 66 year old female, who presents to the ED with left hip pain s/p ORIF in July. She was initially admitted to [facility] for evaluation of possible hardware failure. Patient was transferred here for surgical intervention which is planned on the . There is concern for migration of screw proximally into the retroperitoneum and vascular surgery is on standby. She states that she has not ambulated much since the surgery in July. 10/05/2022: Patient alert, chart reviewed, denies any headache, dizziness, chest pain. Prior to surgery she has been ambulatory and denies any rate limiting factors including any exertional chest painor shortness of breath. She is a non-smoker. 10/06- pt lying on bed, denies any complaints at this time, no acute issues overnt. Objective: Vitals: BP 115/61 Pulse 85 Temp 36.4 C (97.6 F) (Temporal) Resp 20 Ht 5' 4 (1.626 m) Wt 145 lb (65.8 kg) SpO2 91% BMI 24.89 kg/m Pulse Ox: SpO2 Av % Min: 91 % Max: 98 % Supplemental O2: Pertinent physical exam: Patient is alert, awake, oriented x 3 No pallor, Icterus No JVD Heart S1 S2 No murmurs Lungs clear to auscultation Abdomen soft non distended no organomegaly No pedal edema, hesitant to move her L extremity with concern for pain. No focal neurological deficits Assessment Acute, acute on chronic, unstable/uncontrolled chronic problems: Left hip pain with hardware failure Migrated screw into the retroperitoneum Hyperkalemia- resolved Stable chronic problems affecting care, new non-acute diagnoses: Hypertension DM2 Neuropathy Bipolar disorder. MDM/Plan Follow-up with orthopedics, plan is for surgery on 10/10. Vascular surgery is on standby. Patient ismedically optimized to undergo surgery. We will continue to follow closely perioperatively. Potassium improved but remains high normal, will continue to monitor Blood pressure running low, asymptomatic, will decrease lisinopril from 20 mg to 5 mg daily, continue with Coreg for now Monitor blood sugars closely Continue sliding scale coverage - DVT prophylaxis: SCDs and encourage ambulation Advance Directive: Full Code Anticipated Discharge - Date - TBD - Location -TBD - Pending the following -surgical intervention on 10/10/2022 Adult diet Regular NPO diet 24HR INTAKE/OUTPUT: Intake/Output Summary (Last 24 hours) at 10/06/2022 1359 Last data filed at 10/06/2022 0500 Gross per 24 hour Intake 720 ml Output 400 ml Net 320 ml LABS: CBC: Recent Labs 10/04/22 0534 10/05/22 0210 10/06/22 0547 WBC 12.0* 12.1* 12.2* RBC 4.10 3.97 3.90 HGB 12.2 12.0 11.5* HCT 37.2 36.6 36.0 MCV 90.7 92.2 92.5 RDW 14.6* 14.7* 14.7* PLT 392 354 350 BMP: Recent Labs 10/04/22 0534 10/05/22 0210 10/06/22 0547 NA 137 138 138 K 4.0 5.1 4.8 CL 104 102 103 CO2 21* 27 24 BUN 28* 27* 27* CREATININE 0.69 0.88 0.72 GLUCOSE 88 95 114* CALCIUM 9.2 9.2 9.0 ANIONGAP 12 9 11 LIVER PROFILE: Recent Labs 10/04/22 0534 AST 59* ALT 48* BILITOT 0.4 ALKPHOS 134* PROT 7.3 PT/INR: Recent Labs 10/03/22 1826 PROTIME 11.0 INR 1.0 CARDIAC ENZYMES: No results for input(s): TROPONINI in the last 72 hours. Procalcitonin: No results found for: PROCAL Medications: Scheduled atorvastatin, 20 mg, Oral, Daily busPIRone, 15 mg, Oral, BID carvedilol, 3.125 mg, Oral, BID WC FLUoxetine, 20 mg, Oral, Daily insulin lispro, 0-12 Units, SubCUTAneous, q6h And insulin lispro, 0-12 Units, SubCUTAneous, Nightly lisinopril, 5 mg, Oral, Daily pantoprazole, 40 mg, Oral, qAM AC PRN PRN medications: acetaminophen OR acetaminophen, dextrose, dextrose, glucagon (rDNA), glucose, morphine sulfate, ondansetron ODT OR ondansetron, polyethylene glycol (PEG) 3350 Extended Emergency Contact Information Primary Emergency Contact: Joo Bernstein Relation: None Gayle Herbert MD Division of Hospitalist Medicine [facility] * Lydia GiftyCasie Bradshaw, RD - 10/05/2022 2:11 PM EDT Nutrition Assessment Type and Reason for Visit: Initial, Positive Nutrition Screen (weight loss, decreased appetite) Nutrition Recommendations/Plan: PATIENT MEETS ASPEN/AND GUIDELINES FOR MODERATE MALNUTRITION IN THE CONTEXT OF CHRONIC ILLNESS. 1. Pt is currently ordered a Regular Diet which is appropriate. --> plans for NPO at [place] on 10/10 for planned OR. 2. Will continue to monitor PO intake for adequacy once better established. Pt states that she was nauseated with breakfast today and states she is nervous and her stomach is in knots 'because of stress'. 3. Pt states that the food at her SNF was terrible and she has been 'living off Boost', per MNT protocol will initiate Ensure Plus TID with snacks to supplement intake, 8fl oz provides 350 calories, 20gm protein. Pt prefers chocolate flavor. 4. As able, consider obtaining updated measured weight on patient. Pt states that her UBW is 175# 07/2022 and CBW 145# stated. Attempted to obtain bedscale weight however scale reading 'err3'. 5. Will continue to monitor weight changes, labs and overall nutrition status 6. RD will continue to follow up weekly Malnutrition Assessment: Malnutrition Status: Moderate malnutrition Context: Chronic Illness Findings of the 6 clinical characteristics of malnutrition: Energy Intake: 75% or less estimated energy requirements for 1 month or longer Weight Loss: Unable to assess (no weight history in EPIC to review, pt states she was 175# on the day of her fall 08/05/22 and now CBW stated 145#, attempted to obtain bedscale weight however scale reading 'err3') Body Fat Loss: Mild body fat loss Orbital, Buccal region Muscle Mass Loss: Mild muscle mass loss Clavicles (pectoralis & deltoids), Temples (temporalis) Fluid Accumulation: No significant fluid accumulation [employer] Strength: Not Performed Nutrition Assessment: pt with PMH significant for AFib, bipolar, dementia, HTN, CAD, DM2, HLD and neuropathy who presented to [facility] ED on 10/03/22 as a referral from [facility], in late July pt suffered a ground-level fall resulting in a peritrochanteric left hip fracture that was treated with a short cephalomedull sofia nail on 08/06/22- surgery was routine and satisfactory reduction was achieved, in the immediate postoperative period pt suffered from severe delirium and underwent extensive work-up while in the hospital, pt made weightbearing as tolerated postoperatively but was only able to take a few steps and was otherwise bedbound, pt was worked up for stroke (resulted negative) as well as infection- was diagnosed and treated for a pneumonia during that hospital stay, pt underwent a CT scan of her left lower extremity on postop day 1 to evaluate for hematoma collection due to postoperative anemia and at that time hardware was intact but was apparent that the lag screw was placed in an anterior/superi or position in the femoral head, scan revealed no concerning lesions in her lumbar spine and pelvisthat were concerning for malignant process, pt was ultimately discharged to a [facility], pt followed up with Oncology who ordered a CT-guided biopsy of her most accessible lesion which was in the right iliac bone, sometime in the interim it was discovered that she had complete loss of fixation of her cephalomedullary nail with proximal migration of the lag screw, pt followed up with Orthopedicsurgeon who recommended waiting until her work-up was complete before pursuing revision treatment, pt reported thus far all of her cancer work-up has been essentially negative, this admit CTA of pelvi s completed due to concern for proximity of left external iliac artery to left hip screw- Ortho, Vascular and General Surgery working to determine safest operative plan, at this time removal of hardware and revision COSTA surgery likely to take place on 10/10/22 pending multispecialty coordination (NPO at [place] orders placed by Ortho), pt currently with active Regular Diet in place. RD spoke with pt in room, pt is laying in bed with covers over her head, pt removed blanket and wasplesant during RD interview, pt states that her appetite 'just has not been good for months', pt states that she used to weigh '175# 'on August 05 the day of my fall', and now pt CBW 145# stated on 10/03, there is no weight history in chart for review, pt states that the food at the nursing facilitythat she has been at is 'terrible, An only had hot scrambled eggs once', pt states that she was 'living off Boost' and was drinking 3x/day, pt is agreeable to ONS initiation during admit, pt denies having immediate questions for RD. Estimated Daily Nutrient Needs: Energy Requirements Based On: Kcal/kg Weight Used for Energy Requirements: [place] Weight for Energy Calculation (kg): 54.5 kg Total Energy Requirements (kcals/day): 1363-1635kcals/day Weight Used for Protein Requirements: [place] Weight in Kg Used for Protein Requirements: 54.5 kg Estimated Total Protein (g/day): 55-65gm pro/day Estimated Daily Total Fluid (ml/day): per MD recommendations Nutrition Related Findings: Raji = 16, skin intact, missing teeth, active bowel sounds, BM 10/04, has been at [facility], pt states appetite is a little decreased, agreeable to ONS Wound Type: None Current Nutrition Therapies: Adult diet Regular NPO diet Current Oral Intake Average Meal Intake: (pt states she had a few bites of breakfast today but states she is nervous and her stomach is in knots 'because of stress') Average Supplements Intake: None Ordered (agreeable to ONS initiation) Anthropometric Measures: Height: 162.6 cm (5' 4) Current Body Weight: 65.8 kg (145 lb) (stated 10/03, attempted to obtain bedscale however scale reading 'err3') Weight Source: Stated Admission Body Weight: 65.8 kg (145 lb) (stated 10/03) Usual Body Weight: 79.4 kg (175 lb) (pt states she was 175# 'on August 05 the day of my fall', there is no weight history in chart for review) % Weight Change (Calculated): -17.1 [place] Body Weight (lbs) (Calculated): 120 lbs [place] Body Weight (Kg) (Calculated): 55 kg % [place] Body Weight (Calculated): 120.8 % BMI (kg/m2) (Calculated): 24.9 Weight Adjustment For: No Adjustment BMI Categories: Normal Weight (BMI 22.0 to 24.9) age over 65 Nutrition Diagnosis: Moderate malnutrition, In context of chronic illness related to (s/p ground- level fall- peritrochanteric L hip fx- treated with a short cephalomedullary nail on 08/06/22, post op course has been complicated- now admitted due to hardware failure and fracture collapse, appetite decreased, in and out of hospital/SNF) as evidenced by (<75% energy intake compared to estimated energy needs for >/=1 month, mild muscle mass depletion to temporal/clavicle/deltoid regions and mild subcutaneous fat wasting orbital/buccal regions) Nutrition Interventions: Nutrition Education/Counseling: Education declined Coordination of Nutrition Care: Continue to monitor while inpatient Goals: Goals: PO intake 75% or greater, by next RD assessment Nutrition Monitoring and Evaluation: Behavioral-Environmental Outcomes: None Identified Food/Nutrient Intake Outcomes: Food and Nutrient Intake, Supplement Intake Physical Signs/Symptoms Outcomes: Biochemical Data, GI Status, Nausea or Vomiting, Meal Time Behavior, Fluid Status or Edema, Weight, Skin, Nutrition Focused Physical Findings Discharge Planning: Too soon to determine Lydia Bradshaw RD Contact: available via [employer] or *[phone] * Cece Alcala PA-C - 10/05/2022 1:57 PM EDT Orthopedic Surgery Progress Note Left knee xray ordered and subsequently obtained. My interpretation is as follows: Left knee xray (10/05/22): no acute fracture or dislocation. Generalized vascular calcification Orthopaedic surgery will follow. Please page applications intern orthopaedic resident for questions or concerns. * Alexis Coles MD - 10/05/2022 1:40 PM EDT Images from the original note were not included. Hospitalist Progress Note 10/05/2022 Subjective: Admit Date: 10/03/2022 PCP: CICI CALDERON Room#: [id number]/[id number] A Interval History: Donna is a 66 year old female, who presents to the ED with left hip pain s/p ORIF in July. She was initially admitted to [facility] for evaluation of possible hardware failure. Patient was transferred here for surgical intervention which is planned on the . There is concern for migration of screw proximally into the retroperitoneum and vascular surgery is on standby. She states that she has not ambulated much since the surgery in July. 10/05/2022: Patient alert, chart reviewed, denies any headache, dizziness, chest pain. Prior to surgery she has been ambulatory and denies any rate limiting factors including any exertional chest painor shortness of breath. She is a non-smoker. Objective: Vitals: BP 94/57 Pulse 83 Temp 36.8 C (98.3 F) (Temporal) Resp 18 Ht 5' 4 (1.626 m) Wt 145 lb (65.8 kg) SpO2 94% BMI 24.89 kg/m Pulse Ox: SpO2 Av.6 % Min: 92 % Max: 98 % Supplemental O2: Pertinent physical exam: Physical Exam Cardiovascular: Rate and Rhythm: Normal rate and regular rhythm. Pulmonary: Effort: Pulmonary effort is normal. Breath sounds: Normal breath sounds. Abdominal: General: Abdomen is flat. Palpations: Abdomen is soft. Musculoskeletal: Comments: Decreased range of motion noted in her left lower extremity Neurological: General: No focal deficit present. Mental Status: She is oriented to person, place, and time. Assessment Acute, acute on chronic, unstable/uncontrolled chronic problems: Left hip pain with hardware failure Migrated screw into the retroperitoneum Hyperkalemia Stable chronic problems affecting care, new non-acute diagnoses: Hypertension DM2 Neuropathy Bipolar disorder. MDM/Plan Follow-up with orthopedics, plan is for surgery on 10/10. Vascular surgery is on standby. Patient ismedically optimized to undergo surgery. We will continue to follow closely perioperatively. Potassium improved but remains high normal, will continue to monitor Blood pressure running low, asymptomatic, will decrease lisinopril from 20 mg to 5 mg daily, continue with Coreg for now Monitor blood sugars closely Continue sliding scale coverage - DVT prophylaxis: SCDs and encourage ambulation Advance Directive: Full Code Anticipated Discharge - Date - TBD - Location -TBD - Pending the following -surgical intervention Adult diet Regular NPO diet 24HR INTAKE/OUTPUT: No intake or output data in the 24 hours ending 10/05/22 1340 LABS: CBC: Recent Labs 08/22/182510/04/2234 10/05/22 0210 WBC 11.0* 12.0* 12.1* RBC 3.94 4.10 3.97 HGB 11.9 12.2 12.0 HCT 35.7 37.2 36.6 MCV 90.7 90.7 92.2 RDW 14.7* 14.6* 14.7* PLT 350 392 354 BMP: Recent Labs 10/03/22182510/03/22 19010/04/22 0534 10/05/22 0210 NA 138 -- 137 138 K 6.0* 4.7 4.0 5.1 CL 104 -- 104 102 CO2 26 -- 21* 27 BUN 36* -- 28* 27* CREATININE 0.84 -- 0.69 0.88 GLUCOSE 143* -- 88 95 CALCIUM 9.6 -- 9.2 9.2 ANIONGAP 8 -- 12 9 LIVER PROFILE: Recent Labs 10/04/22533 AST 59* ALT 48* BILITOT 0.4 ALKPHOS 134* PROT 7.3 PT/INR: Recent Labs 10/03/221825 PROTIME 11.0 INR 1.0 CARDIAC ENZYMES: No results for input(s): TROPONINI in the last 72 hours. Procalcitonin: No results found for: PROCAL Medications: Scheduled atorvastatin, 20 mg, Oral, Daily busPIRone, 15 mg, Oral, BID carvedilol, 3.125 mg, Oral, BID WC FLUoxetine, 20 mg, Oral, Daily insulin lispro, 0-12 Units, SubCUTAneous, q6h And insulin lispro, 0-12 Units, SubCUTAneous, Nightly lisinopril, 20 mg, Oral, Daily pantoprazole, 40 mg, Oral, qAM AC PRN PRN medications: acetaminophen OR acetaminophen, dextrose, dextrose, glucagon (rDNA), glucose, morphine sulfate, ondansetron ODT OR ondansetron, polyethylene glycol (PEG) 3350 Extended Emergency Contact Information Primary Emergency Contact: Joo Bernstein Relation: None Alexis Coles MD Division of Hospitalist Medicine [facility] * Cece Alcala PA-C - 10/05/2022 10:08 AM EDT Images from the original note were not included. [facility] [employer] [address] [place] [id number] Dept: [phone] Loc: [phone] PATIENT: Donna Marsh DATE OF : 1955 ACCT: [id number] PCP: CICI CALDERON DATE OF ADMISSION: 10/03/2022 DATE OF SERVICE: Pt seen/examined on 10/05/2022 Subjective CHIEF COMPLAINT: status post left cephalomedullary nail for peritrochanteric hip fracture on 08/06/2022 with interval complete hardware failure and fracture collapse. HPI: Patient is seen resting comfortably in bed. Patient was transferred from [place] overnight. She reports that the pain in her left hip is a constant 9/10, unchanged. The patient reports that over the past few days, she is also noted left knee pain. She denies a specific inciting event for theleft knee pain. Patient denies any fevers, chills, or feelings of malaise. She denies any numbness or tingling into her lower extremities. Discussed with patient plan for surgery likely on 10/10/2022 pending multispecialty coordination. Objective PAST MEDICAL HISTORY Past Medical History: Diagnosis Date Bipolar 1 disorder (HCC) Diabetes mellitus (HCC) Hyperlipidemia Hypertension Neuropathy PAST SURGICAL HISTORY Past Surgical History: Procedure Laterality Date CARPAL TUNNEL RELEASE HYSTERECTOMY ORIF DISTAL RADIUS FRACTURE (HISTORICAL) Left 08/06/2022 TONSILLECTOMY (HISTORICAL) HOME MEDICATIONS Prior to Admission medications Medication Sig Start Date End Date Taking? Authorizing Provider acetaminophen (Tylenol Extra Strength) 500 MG tablet Take by mouth. Historical Provider, alendronate (Fosamax) 70 MG tablet 09/13/22 Historical Provider, atorvastatin (Lipitor) 20 MG tablet Take 20 mg by mouth. 09/15/22 Historical Provider, bisacodyl (Dulcolax) 10 MG suppository Insert into the rectum. Historical Provider, busPIRone (Buspar) 15 MG tablet 09/13/22 Historical Provider, carvedilol (Coreg) 3.125 MG tablet Take by mouth. Historical Provider, celecoxib (CeleBREX) 200 MG capsule Take 200 mg by mouth. 08/16/22 Historical Provider, ergocalciferol (Vitamin D-2) 1.25 MG (25479 UT) capsule Take by mouth. Historical Provider, fexofenadine (Roc) 180 MG tablet Take by mouth. Historical Provider, FLUoxetine (PROzac) 20 MG capsule Take 20 mg by mouth in the morning. Historical Provider, glipiZIDE (Glucotrol) 10 MG tablet Take by mouth. Historical Provider, lisinopril 20 MG tablet Take by mouth. Historical Provider, omeprazole (PriLOSEC) [address] capsule Take by mouth. Historical Provider, oxybutynin XL (Ditropan-XL) 10 MG 24 hr tablet 09/13/22 Historical Provider, oxyCODONE (Roxicodone) 5 MG immediate release tablet Take 5 mg by mouth. Historical Provider, sodium phosphate (Fleets) 7-19 GM/118ML enema enema Insert into the rectum. Historical Provider, traMADol (Ultram) 50 MG tablet Take by mouth. Historical Provider, CURRENT HOSPITAL MEDICATIONS Current Facility-Administered Medications: acetaminophen (Tylenol) tablet 650 mg, 650 mg, Oral, q6h PRN, 650 mg at 10/04/22 1210 OR acetaminophen (Tylenol) suppository 650 mg, 650 mg, Rectal, q6h PRN, Kofi Jolley MD atorvastatin (Lipitor) tablet 20 mg, 20 mg, Oral, Daily, Petra Rivers MD, 20 mg at 10/05/22 0904 busPIRone (Buspar) tablet 15 mg, 15 mg, Oral, BID, Petra Rivers MD, 15 mg at 10/05/22 0904 carvedilol (Coreg) tablet 3.125 mg, 3.125 mg, Oral, BID WC, Petra Rivers MD, 3.125 mg at 10/05/22 0904 dextrose 5 % infusion, 100 mL/hr, IntraVENous, PRN, Kofi Jolley MD dextrose 50 % solution 12.5 g, 12.5 g, IntraVENous, PRN, Kofi Jolley MD FLUoxetine (PROzac) capsule 20 mg, 20 mg, Oral, Daily, Petra Rivers MD, 20 mg at 10/05/22 0904 glucagon (human recombinant) injection 1 mg, 1 mg, IntraMUSCular, PRN, oKfi Jolley MD glucose oral gel 15 g, 15 g, Oral, PRN, Kofi Jolley MD Insulin Lispro (Humalog) injection 0-12 Units, 0-12 Units, SubCUTAneous, q6h, 10 Units at 10/04/221999 AND Insulin Lispro (Humalog) injection 0-12 Units, 0- 12 Units, SubCUTAneous, Nightly, Petra Rivers MD, 10 Units at 10/04/222099 lisinopril tablet 20 mg, 20 mg, Oral, Daily, Petra Rivers MD, 20 mg at 10/04/22 1210 morphine injection 2 mg, 2 mg, IntraVENous, q4h PRN, Kofi Jolley MD, 2 mg at 10/04/22 222 ondansetron ODT (Zofran-ODT) disintegrating tablet 4 mg, 4 mg, Oral, q8h PRN OR ondansetron (Zofran) injection 4 mg, 4 mg, IntraVENous, q6h PRN, Kofi Jolley MD, 4 mg at 10/04/22 1210 pantoprazole (ProtoNix) EC tablet 40 mg, 40 mg, Oral, qAM AC, Petra Rivers MD polyethylene glycol (PEG) 3350 (Miralax) packet 17 g, 17 g, Oral, Daily PRN, Kofi Jolley MD ALLERGIES: Codeine, Fentanyl, Morphine, and Nsaids SOCIAL HISTORY: Social History Socioeconomic History Marital status: Spouse name: Not on file Number of children: Not on file Years of education: Not on file Highest education level: Not on file Occupational History Not on file Tobacco Use Smoking status: Former Packs/day: 1.00 Years: 15.00 Pack years: 15.00 Types: Cigarettes Quit date: 07/26/2022 Years since quittin.1 Smokeless tobacco: Never Substance and Sexual Activity Alcohol use: No Drug use: Yes Types: Marijuana Sexual activity: Not Currently Other Topics Concern Not on file Social History Narrative Not on file Social Determinants of Health Financial Resource Strain: Not on file Food Insecurity: Not on file Transportation Needs: Not on file Physical Activity: Not on file Stress: Not on file Social Connections: Not on file Intimate Partner Violence: Not At Risk (10/04/2022) Humiliation, Afraid, Rape, and Kick questionnaire Fear of Current or Ex-Partner: No Emotionally Abused: No Physically Abused: No Sexually Abused: No Housing Stability: Not on file FAMILY HISTORY: No family history on file. Further Family History is noncontributory to this injury. REVIEW OF SYSTEMS: Review of Systems - General ROS: negative for - chills, fatigue, fever, malaise or night sweats Psychological ROS: negative Ophthalmic ROS: negative ENT ROS: negative for - headaches or sore throat Hematological and Lymphatic ROS: negative for - bleeding problems or blood clots Respiratory ROS: no cough, shortness of breath, or wheezing Cardiovascular ROS: no chest pain or dyspnea on exertion Gastrointestinal ROS: negative Musculoskeletal ROS: See HPI Neurological ROS: negative for - bowel and bladder control changes, gait disturbance or numbness/tingling All other systems reviewed and are negative VITALS: Vitals: 10/04/22 1935 10/04/22 2141 10/05/22 0751 10/05/22 0922 BP: 119/54 101/54 95/71 94/57 BP Location: Patient Position: Pulse: 79 74 94 83 Resp: 18 20 20 18 Temp: 36.7 C (98.1 F) 36.6 C (97.9 F) 36.6 C (97.9 F) 36.8 C (98.3 F) TempSrc: Temporal Temporal Temporal Temporal SpO2: 92% 92% 98% 94% Weight: Height: PHYSICAL EXAM: GENERAL: Patient is well developed/well nourished in NAD. A+O x 4 MOOD AND AFFECT: Calm appropriate to situation GAIT AND STATION: Patient is in bed and unable to ambulate secondary to known injury. COORDINATION and BALANCE: Patient is grossly coordinated; unable to ambulate secondary to known injury. RUE: No obvious pain or deformity to inspection with normal joint range of motion, stability, and musclestrength except noted below. Sensation intact to light touch in radial/median/and ulnar nerve distributions. Radial pulse palpable. Skin intact except where noted below. Painless passive range of motion at shoulder/elbow/wrist, no tenderness to palpation over right upper extremity Atraumatic. No TTP. No pain w/ p/aROM. SILT and motor as above. Brisk capillary refill to all 5 digits. LUE: No obvious pain or deformity to inspection with normal joint range of motion, stability, and musclestrength except noted below. Sensation intact to light touch in radial/median/and ulnar nerve distributions. Radial pulse palpable. Skin intact except where noted below. Painless passive range of motion at shoulder/elbow/wrist, no tenderness to palpation over left upper extremity Atraumatic. No TTP. No pain w/ p/aROM. SILT and motor as above. Brisk capillary refill to all 5 digits. RLE: No obvious pain or deformity to inspection with normal joint range of motion, stability, and musclestrength except noted below. DP/PT palpable. Skin intact except where noted below. No tenderness topalpation over lower extremity. Sensation intact to light touch in the superficial peroneal, deep peroneal, tibial, sural, saphenous nerve distributions. Motor function of quad, tibialis anterior, extensor hallucis longus, and gactrocsoleus complex intact. Superficial appearing wound with surrounding hyperemia about the right pannus. No active signs of infection.. Negative logroll. No TTP or pain w/ p/a ROM. SILT and motor as above. Brisk capillary refill to all 5 digits. Right sided pannus LLE: No obvious pain or deformity to inspection with normal joint range of motion, stability, and musclestrength except noted below. DP/PT palpable. Skin intact except where noted below. Sensation intactto light touch in the superficial peroneal, deep peroneal, tibial, sural, saphenous nerve distributions. Motor function of quad, tibialis anterior, extensor hallucis longus, and gactrocsoleus complexintact. Patient endorses pain to palpation over the hip. Incisions overlying the proximal lateral thigh areclean/dry/intact without evidence of skin breakdown or wound dehiscence. No surrounding erythema, joint effusion, or signs of infection. At the level of the knee, patient endorses tenderness to palpation about the medial and lateral aspects of the distal femur. No pain to palpation about the medial joint line, lateral joint line, quadriceps tendon, patellar tendon, or patella. Extensor mechanism intact. There is a superficial appearing abrasion over the anterolateral aspect of the knee that does not appear acutely infected. No surrounding erythema, joint effusion, or signs of infection. No pain with short arc range of motion of the knee. Left proximal lateral thigh Left lateral knee LABS: CBC: Lab Results Component Value Date WBC 12.1 (H) 10/05/2022 RBC 3.97 10/05/2022 BMP: Lab Results Component Value Date GLUCOSE 95 10/05/2022 CO2 27 10/05/2022 BUN 27 (H) 10/05/2022 CREATININE 0.88 10/05/2022 CALCIUM 9.2 10/05/2022 PT/INR: Lab Results Component Value Date INR 1.0 10/03/2022 APTT 26.8 10/03/2022 Type and Screen: Lab Results Component Value Date RH POS 10/03/2022 RH POS 10/03/2022 CRP: Lab Results Component Value Date CRP 14.9 (H) 10/03/2022 ESR: Lab Results Component Value Date SEDRATE 46 (H) 10/03/2022 HgBA1c: No components found for: LABA1C The above labs were reviewed by me. Assessment Donna is a 66 y.o.female status post left cephalomedullary nail for peritrochanteric hip fracture on08/06/2022 with interval complete hardware failure and fracture collapse. Plan -Plan for OR on 10/10 for removal of hardware and revision COSTA -Given close proximity of migrated screw to left external illiac artery we will coordinate with vascular surgery for possible operative assistance. No need for general surgery at this time. -NPO at Midnight 10/10 -Clear per medicine pending, a message was sent to Dr. Magallanes for assistance -Consented, consent in chart -timed labs pending -Wound care consult pending for right sided pannus wound -Ice -Bedrest -NWB LLE -Admit to medicine -Pain control & medical management per primary -Please hold DVT prophylaxis in anticipation of OR -Please comment on clearance in case of OR, page ortho applications intern with clearance status -Orthopaedic surgery will follow. Please page applications intern orthopaedic resident for questions or concerns. * Petra Rivers MD - 10/04/2022 4:43 PM EDT Discussed patient care with Orthopedic Surgery, Patient to be transferred to [facility] for higher level of surgical care. Dr. Sofia Sena from [facility] will accept transfer. Petra Rivers MD Division of Hospitalist Medicine [facility] * Liset Zhou MD - 10/04/2022 4:40 PM EDT Brief Orthopaedic Surgery Progress Note Spoke with Dr. Petra Rivers regarding pending transfer of patient to [facility]. At this time, patient's left hip requires removal of hardware and total hip arthroplasty to be completed by . Due to the proximity of the hardware to the iliac vasculature, the surgery must be done withvascular surgery team on standby should their assistance be required. Dr. Rivers is initiating transfer and ortho will reach out to vascular surgery. Ortho to follow for transfer to [facility]. Please reach out with questions or concerns. Liset Zhou MD PGY-1, Orthopaedic Surgery 10/04/22 4:43 PM * Luis Causey MD - 10/04/2022 4:20 PM EDT Orthopedic Surgery Progress Note: Discussed patient care with General Surgery and Vascular team due to the proximity of the iliac artery near the tip of the screw. Plan will be to transfer patient to [facility] for further management. Will plan to due to the removal of hardware with the vascular surgery team present. Luis Causey MD PGY-4 Orthopedic Surgery Pager [phone] * Petra Rivers MD - 10/04/2022 7:22 AM EDT Hospitalist Progress Note 10/04/2022 [id number]: Please secure chat me on patient care issues. : Please secure chat [facility] Hospitalist for any issues. Subjective: Admit Date: 10/03/2022 PCP: CICI CALDERON Room#: CHIEF COMPLAINT: left hip pain Interval History: No overnight issues. Continues to have left sided hip pain, and endorsing some nausea. Has not ate since last night - does have some GERD. Denies chest pain, sob, abdominal pain, vomiting, diarrhea, constipation, fevers, or chills. NPO diet without enteral medications @[id number]@ 24HR INTAKE/OUTPUT: No intake or output data in the 24 hours ending 10/04/22721 Past Medical History: Past Medical History: Diagnosis Date Bipolar 1 disorder (HCC) Diabetes mellitus (HCC) Hyperlipidemia Hypertension Neuropathy LABS: CBC: Recent Labs 10/03/22182510/04/22 0534 WBC 11.0* 12.0* RBC 3.94 4.10 HGB 11.9 12.2 HCT 35.7 37.2 MCV 90.7 90.7 RDW 14.7* 14.6* PLT 350 392 BMP: Recent Labs 10/03/22182510/03/22190610/04/22 0534 NA 138 -- 137 K 6.0* 4.7 4.0 CL 104 -- 104 CO2 26 -- 21* BUN 36* -- 28* CREATININE 0.84 -- 0.69 GLUCOSE 143* -- 88 CALCIUM 9.6 -- 9.2 ANIONGAP 8 -- 12 LIVER PROFILE: Recent Labs 10/04/22 0534 AST 59* ALT 48* BILITOT 0.4 ALKPHOS 134* PROT 7.3 PT/INR: Recent Labs 10/03/221825 PROTIME 11.0 INR 1.0 CARDIAC ENZYMES: No results for input(s): TROPONINI in the last 72 hours. Procalcitonin: No results found for: PROCAL COVID-19 PCR: No results for input(s): COVID19 in the last 72 hours. CTA pelvis angio 10/03: Impression: 1. Left femoral neck fracture with postsurgical changes and hardware malalignment. The malpositioned lag screw comes in close proximity to the left external iliac artery. 2. Compression deformities of L4 and L5. Sclerosis in L4 is nonspecific but a marrow replacing lesion cannot be entirely excluded. CT hip left 10/03: Impression: Impression: Comminuted left femoral neck fracture, likely subacute. Postsurgical changes are present, with malpositioning of the surgical hardware as detailed above. Diffuse osteopenia. Objective: Vitals: BP 124/66 (BP Location: Right arm, Patient Position: Lying) Pulse 87 Temp 36.6 C (97.8 F) (Oral) Resp 16 Ht 5' 4 (1.626 m) Wt 145 lb (65.8 kg) SpO2 99% BMI 24.89 kg/m Pulse Ox: SpO2 Av.5 % Min: 92 % Max: 100 % Supplemental O2: Physical Exam Vitals and nursing note reviewed. HENT: Mouth/Throat: Pharynx: Oropharynx is clear. Eyes: Conjunctiva/sclera: Conjunctivae normal. Cardiovascular: Rate and Rhythm: Normal rate. Heart sounds: No murmur heard. Pulmonary: Effort: Pulmonary effort is normal. No respiratory distress. Breath sounds: No wheezing or rales. Abdominal: General: Bowel sounds are normal. Tenderness: There is no abdominal tenderness. Musculoskeletal: Right lower leg: No edema. Left lower leg: No edema. Comments: Increased pain and tenderness to left hip, no erythema or heat. Skin: General: Skin is warm. Capillary Refill: Capillary refill takes less than 2 seconds. Neurological: General: No focal deficit present. Mental Status: She is alert. Medications: insulin lispro, 0-12 Units, SubCUTAneous, TID WC And insulin lispro, 0-12 Units, SubCUTAneous, Nightly Assessment Acute, acute on chronic, unstable/uncontrolled chronic problems: Left hip pain with hardware failure Hyperkalemia Hypertension DM2 Neuropathy Bipolar disorder. Interval History Donna is a 66 year old female, who presents to the ED with left hip pain s/p ORIF in July. She was admitted for evaluation of possible hardware failure. In the ED, Vital signs 140/61, P 83, T 36.9, r 16, SpO2 - 95%. Labs showed leukocytosis 11, K, 6, Bun 36, Medical Decision Making - orthopedics evaluation - appreciate recommendations. Medically stable for any surgical procedure. - repeat K, was normal - no need to treat - Blood pressure stable - continue home medications. - Sliding scale for insulin - q6h while npo -am labs, replace lytes prn - ordered home medications -increase activity -DVT prophylaxis: [] Lovenox [] Heparin [] SCDs [x] Encourage ambulation [] Already on Anticoagulation Anticipated Discharge - Date - 10/06/2022 - Location - Home with Home Health Care or SNF - Pending the following - orthopedic surgery clearance Total time spent (which include face to face and non face to face encounters) : 40 minutes Toxic drug monitoring/narrow therapeutic index drug monitoring : # Drug name : insulin # Route administered : Subq # Method of monitoring : BS qac and qhs Extended Emergency Contact Information Primary Emergency Contact: Joo Bernstein Relation: None Petra Rivers MD Division of Hospitalist Medicine [facility] PAGER: [employer] chat * Debi Lamb MD - 10/04/2022 12:06 AM EDT Brief orthopedic progress note: Imaging interpretation. X-ray left hip- comminuted left intertrochanteric fracture appears subacute to chronic in nature. Prior short CMN in place in malalignment. There is superior migration of the lag screw into the left iliopsoas muscle. femoral head appears reduced. Proximal femur appears shortened around the fractureas well. CT left hip- comminuted left intertrochanteric fracture appears subacute to chronic in nature. Prior short CMN in place in malalignment. There is superior migration of the lag screw into the left iliopsoas muscle. femoral head appears reduced. Proximal femur appears shortened around the fracture aswell. CTA pelvis- same as previously mentioned on L hip CT. malposition lag screw is in close proximity to the left external iliac artery. There is no extravasation surrounding the artery. Also compressiondeformities of L4-L5 noted. Formal consult note to follow pending resident evaluation in the AM. documented in this [facility]09-03-2023 Nurse Note* Omar Zarco RN - 10/15/2022 1:13 PM EDT Report given to staff consultant at [facility]. Pt waiting on transport. * Angelita Castañeda LPN - 10/04/2022 5:41 PM EDT Report called to Omar VILLASENOR at [facility]. Patient to be transferred via [facility] ambulance at 7pm [id number] on H6. documented in this [facility]09-03-2023 Miscellaneous Notes* Care Coordination - Unknown Case Management - 10/15/2022 11:43 AM EDT Patient Choice Patient Name: DONNA MARSH Date of : 1955 All Providers Sent Referral Name: [facility] Phone: [phone] Address: [address] [place] [address] * Care Coordination - Terrie Scott RN - 10/15/2022 11:34 AM EDT Images from the original note were not included. CARE COORDINATION DAILY NOTE/UPDATE Medical Plan: s/p Left Hip removal of hardware with conversion to COSTA on 10/10. Drain removed and Ancef discontinued 10/14. PT/OT rec SNF. Active discharge order. Discharge Plan: [facility]- [facility] good through 10/17 Discharge Barriers: none This [facility] was tasked to follow this patient through the weekend assisting with discharge planning. Apparel Sales Leader Paula asked to schedule transport- time set for 1400. Omar VILLASENOR updated on plan and asked to update patient. Discharge documents including Discharge Summary, After Visit Summary, MAR, LABS, and Vitals were uploaded into [facility] for facility review. Facility made aware of transport time. Discharge Milestones and Delays Expected Date/Time: 10/15/2022 Afternoon Disposition: Care Home Facility Transport status: No current request Discharge Milestones Completed Place discharge order Complete med reconciliation Case mgmt discharge readiness Clinical Stability Diagnsotic Workup Expected Discharge History Expected Date/Time Set By Reviewed At 10/15/2022 Afternoon Miguel Chapman 10/15/2022 11:24 AM pending medical clearance 10/15/2022 Terrie Scott RN 10/14/2022 9:07 AM Ramu Farias RN 10/13/2022 8:39 AM OR 10/1010/13/2022 Rosalba Elizalde RN 10/12/2022 8:48 AM 10/12/2022 Chyna Rowan RN 10/11/2022 8:14 AM 10/13/2022 CARMEN Joshi 10/10/2022 9:20 AM 10/13/2022 Rosalba Elizalde RN 10/09/2022 8:24 AM 10/12/2022 Rosalba Elizalde RN 10/06/2022 8:36 AM 10/11/2022 CARMEN Joshi 10/05/2022 9:23 AM 10/06/2022 Rudy Quintana PA-C 10/04/2022 2:43 PM 10/06/2022 Rudy Quintana PA-C 10/03/2022 7:11 PM Length of Stay (Days): 12 GMLOS: 1.7 * Care Coordination - Terrie Scott RN - 10/14/2022 9:02 AM EDT Images from the original note were not included. CARE COORDINATION DAILY NOTE/UPDATE Medical Plan: s/p Left Hip removal of hardware with conversion to COSTA on 10/10. Drain removed and Ancef discontinued 10/14. PT/OT rec SNF. Discharge Plan: [facility] through 10/17 Discharge Barriers: pending medical clearance This [facility] was tasked to follow this patient through the weekend assisting with discharge planning. Chart and careport reviewed. Ambulance form on chart. Expected discharge, Discharge Milestones, and Rapid Rounding reviewed and updated. TCC will continue to follow. Discharge Milestones and Delays Expected Date/Time: 10/15/[address] discharge order Complete med reconciliation Case mgmt discharge readiness Clinical Stability Diagnsotic Workup Expected Discharge History Expected Date/Time Set By Reviewed At 10/15/2022 Terrie Scott RN 10/14/2022 9:07 AM pending medical clearance Ramu Farias RN 10/13/2022 8:39 AM OR 10/1010/13/2022 Rosalba lEizalde RN 10/12/2022 8:48 AM 10/12/2022 Chyna Rowan RN 10/11/2022 8:14 AM 10/13/2022 CARMEN Joshi 10/10/2022 9:20 AM 10/13/2022 Rosalba Elizalde RN 10/09/2022 8:24 AM 10/12/2022 Rosalba Elizalde RN 10/06/2022 8:36 AM 10/11/2022 CARMEN Joshi 10/05/2022 9:23 AM 10/06/2022 Rudy Quintana PA-C 10/04/2022 2:43 PM 10/06/2022 Rudy Quintana PA-C 10/03/2022 7:11 PM Length of Stay (Days): 11 GMLOS: 1.7 * Care Coordination - Ramu Farias RN - 10/13/2022 2:25 PM EDT Images from the original note were not included. Care Management Progress Note Patient remains on H6 s/p L CMS on 08/06, removal of hardware with conversion to COSTA. PT and OT rec SNF. Discharge plan return to [facility]. Auth obtained. Pt with drain in place to be removedat discharged and transitioned to [facility]. Anticipate discharge 10/14. TCC to follow. Discharge Milestones and Delays Discharge Milestones Place discharge order Complete med reconciliation Case mgmt discharge readiness Clinical Stability Diagnsotic Workup Expected Discharge History Expected Date/Time Set By Reviewed At Ramu Farias RN 10/13/2022 8:39 AM OR 10/1010/13/2022 Rosalba Elizalde RN 10/12/2022 8:48 AM 10/12/2022 Chyna Rowan RN 10/11/2022 8:14 AM 10/13/2022 Nikkie Tavarez, CARMEN 10/10/2022 9:20 AM 10/13/2022 Rosalba Elizalde RN 10/09/2022 8:24 AM 10/12/2022 Rosalba Elizalde RN 10/06/2022 8:36 AM 10/11/2022 Nikkie Tavarez, CARMEN 10/05/2022 9:23 AM 10/06/2022 Rudy Quintana PA-C 10/04/2022 2:43 PM 10/06/2022 Rudy Quintana PA-C 10/03/2022 7:11 PM Length of Stay (Days): 10 GMLOS: 1.7 * Care Coordination - YENNY Lyons - 10/12/2022 12:34 PM EDT SW coverage for today. Plan is for pt to return to [facility] when stable. Ambulance form completed and placed on pt's chart. * Care Coordination - Rosalba Elizalde RN - 10/12/2022 10:47 AM EDT Images from the original note were not included. Care Management Progress Note Patient remains on H6 s/p L CMS on 08/06, removal of hardware with conversion to COSTA. PT recommending SNF and OT evaluation pending. Discharge plan return to [facility], awaiting OT evaluation to start insurance authorization. Therapy Dept. Contacted and facility updated. Discharge Milestones and Delays Expected Date/Time: 10/13/[address] discharge order Complete med reconciliation Case mgmt discharge readiness Clinical Stability Diagnsotic Workup Expected Discharge History Expected Date/Time Set By Reviewed At 10/13/2022 Rosalba Elizalde RN 10/12/2022 8:48 AM OR 10/1010/12/2022 Chyna Rowan RN 10/11/2022 8:14 AM 10/13/2022 CARMEN Joshi 10/10/2022 9:20 AM 10/13/2022 Rosalba Elizalde RN 10/09/2022 8:24 AM 10/12/2022 Rosalba Elizalde RN 10/06/2022 8:36 AM 10/11/2022 CARMEN Joshi 10/05/2022 9:23 AM 10/06/2022 Rudy Quintana PA-C 10/04/2022 2:43 PM 10/06/2022 Rudy Quintana PA-C 10/03/2022 7:11 PM Length of Stay (Days): 9 GMLOS: 2.7 * Care Plan - Denise Durham RN - 10/12/2022 9:18 AM EDT Problem: Knowledge Deficit Goal: Patient/family/caregiver demonstrates understanding of disease process, treatment plan, medications, and discharge instructions Outcome: Progressing Flowsheets (Taken 10/12/2022 09) Patient/family/caregiver demonstrates understanding of disease process, treatment plan, medications, and discharge instructions: Complete learning assessment and assess knowledge base Provide teaching via preferred learning methods Problem: Potential for Compromised Skin Integrity Goal: Skin Integrity is Maintained or Improved Outcome: Progressing Flowsheets (Taken 10/12/2022 09) Skin integrity is maintained or improved: Assess and monitor skin integrity Keep skin clean and dry Relieve pressure to bony prominences * Care Coordination - Chyna Rowan RN - 10/11/2022 2:28 PM EDT Images from the original note were not included. Care Management Progress Note Pt with hx of L CMN on 08/06 is now one day post op L hip removal of hardware and total hip replacement. She has surgical drain. She is on iv ancef. PT eval today with recommendation of snf. Pt is from [facility] with plan for return. We will need OT to initiate auth for return. Tcc called therapy services this am to request PT and OT evals. Tcc will continue to follow. Discharge Milestones and Delays Expected Date/Time: 10/12/[address] discharge order Complete med reconciliation Case mgmt discharge readiness Clinical Stability Diagnsotic Workup Expected Discharge History Expected Date/Time Set By Reviewed At 10/12/2022 Chyna Rowan RN 10/11/2022 8:14 AM OR 10/1010/13/2022 CARMEN Joshi 10/10/2022 9:20 AM 10/13/2022 Rosalba Elizalde RN 10/09/2022 8:24 AM 10/12/2022 Rosalba Elizalde RN 10/06/2022 8:36 AM 10/11/2022 CARMEN Joshi 10/05/2022 9:23 AM 10/06/2022 Rudy Quintana PA-C 10/04/2022 2:43 PM 10/06/2022 Rudy Quintana PA-C 10/03/2022 7:11 PM Length of Stay (Days): 8 GMLOS: 2.7 * Care Plan - Denise Durham RN - 10/11/2022 8:21 AM EDT Problem: Knowledge Deficit Goal: Patient/family/caregiver demonstrates understanding of disease process, treatment plan, medications, and discharge instructions Outcome: Progressing Flowsheets (Taken 10/11/2022 0821) Patient/family/caregiver demonstrates understanding of disease process, treatment plan, medications, and discharge instructions: Complete learning assessment and assess knowledge base Provide teaching via preferred learning methods Problem: Potential for Compromised Skin Integrity Goal: Skin Integrity is Maintained or Improved Outcome: Progressing Flowsheets (Taken 10/11/2022820) Skin integrity is maintained or improved: Assess and monitor skin integrity Collaborate with interdisciplinary team and initiate plans and interventions as needed Avoid shearing * Perioperative Nursing Note - Amee Srinivasan RN - 10/10/2022 9:36 PM EDT Central Supply Supervisor at bedside to block pt * Op Note - Berry Mares MD - 10/10/2022 3:13 PM EDT Images from the original note were not included. 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 COMPLICATIONS: Patient tolerated the procedure well without anesthetic or surgical/operative complications. COMPONENTS: D[employer]on [employer]hew Redapt acetabular component size 50 mm, 38 highly crosslinked outer polyethylene head, dual mobility oxinium acetabular liner, a 28 -3 Biolox delta ceramic femoral head, Leroy-Biomet Josh 19 x 190 femoral component, C x 60 proximal body, 5 divergent acetabular screws INTRAOPERATIVE FINDINGS: The intra-operative finding confirmed the clinical and radiographic finding of trochanteric nonunion around a previously placed cephalomedullary nail with migration of lag screw into the pelvis. No complications with lag screw removal, vascular surgery team available during case. No intraoperative fracture identified. TISSUE REMOVED OR ALTERED: Femoral head and acetabular reamings removed via standard resection. COMORBIDITIES: Bipolar 1 disorder (HCC) Diabetes mellitus (HCC) Hyperlipidemia Hypertension Neuropathy SPECIMEN: None OPERATIVE NOTE ADDENDUM: Operative note addendum for unusual increased surgical complexity for a complex surgical case. This particular patient's condition and surgery, satisfies the criteria for unusual and increased surgical complexity and resulted in significantly increased difficulty for this surgical procedure. Due to use of revision components and the need for meticulous lag screw removal from the pelvis as well as need for bone grafting and scar excision the procedure required additionalsurgical dissection, additional assistance with tissue retraction, and more complicated exposure techniques to satisfactorily perform the procedure. In addition, the energy expenditure was substantially increased for the surgeon and assistants. These factors increased the complexity, surgical risks, and duration of the procedure. The duration of this procedure in this patient was increased by approximately 40% due to the above- mentioned factors. HISTORY: The patient has progressive and debilitating hip pain secondary to failed cephalomedullarynail with intertrochanteric nonunion. Lag screw noted to migrate into the pelvis, requiring vascular surgery on standby. Nail was done in July after patient fell, no preceding hip pain. The patient was deemed appropriate for a conversion total hip arthroplasty. Risks, benefits ,and alternatives to surgical treatment were discussed in detail with the patient and the patient wished to proceed with the total hip arthroplasty. The patient was seen and thoroughly evaluated by a medical device assembler preoperatively and was optimized for surgical intervention. SURGICAL PROCEDURE: The patient was identified in the preoperative holding area and the correct hipwas identified and marked. IV antibiotics and IV tranexamic acid were administered. The patient wasthen brought to the operating room where general analgesia and a satisfactory level of sedation wasobtained. FI block was placed, as well. The patient was then positioned in the lateral decubitus pos ition with all bony prominences well-padded, an axillary roll placed under the proximal thorax and the pelvis held securely via the Hip Salvage Inspector [employer] positioner. A pre- scrub was completed with alcohol solution. The hip was then prepped with Chloroprep solution and draped in standard sterile fashion. A surgical time out was called and the correct patient, correct extremity, correct procedure, operating room team and personnel, and that IV antibiotics had been appropriately given and documented. In addition, it was confirmed that the implant vendor hvac sales representative and appropriate implants were present and available. A posterior approach was utilized. A lateral hip incision was made centered over the posterior aspect of the greater trochanter and in line with the proximal femur. The incision was carried down through the subcutaneous tissue with sharp dissection and hemostasis was obtained with Bovie electrocautery. The fascia babar was incised in line with the femur and the fibers of the gluteus juan were carefully split with blunt dissection. A Charnley retractor was then carefully placed retracting the fascia babar and gluteus juan fibers. The short external rotators were identified by gently sweeping the overlying adipose tissue posteriorly. The sciatic nerve was palpated well posterior to the jessica gical field and protected throughout the procedure. The interval between the piriformis tendon and the posterior edge of gluteus minimus was defined with a Winslow elevator. The gluteus minimus muscle was retracted with a Dysart retractor, exposing the posterosuperior hip capsule. The short external rotators and capsule were divided at their insertion on the posterior trochanter, lateral femoral neck and superior acetabulum. The external rotators and capsule were tagged with #2 Ethibond suture, taken down as one posterior sleeve in a trapezoidal shape and served to retract and protect the sciatic nerve throughout the remainder of the case. The predislocation leg-length relationship was noted and measured at the superimposed heels. The inferior hip capsule was released off the medial neck. The hip was kept reduced and then we turned our attention to removal of the nail. We then made a distal incision over the distal locking screw of this short nail. The previous incision distally was utilized and fluoro was used to identify location of the screw. Dissection carried to IT band. This was incised over the screws. Vastus lateralis fascia was identified and incised. Muscular blunt dissection to screw was undertaken. Before removing screw we identifed the proximal portion of the nail and the removal tool was applied to ensure this would not sink into the femur. The distal screw was remov ed without difficulty and then the nail was removed. The lag screw was identified. This was protruding into the pelvis and the distal most portion of the screw was seen. The femoral head was left in place to reduce toggle on this lag screw. Abundant scar was necessary to remove around the lag screw. Then, with a vice language path the lag screw was fully removed. No complications arose, particularly back bleeding from the pelvis. A Cobra retractor was placed around the medial femoral neck to protect the soft- tissue, the lesser trochanter was visualized and the remaining femoral neck was identified and perforated with a femoral head cork screw. This piece of bone was adherent to scar and was rotated to remove attachment, then, the head and associated neck and fractured portion distally was completely removed. This was sentto pathology. The leg was placed in the position of sleep and the acetabulum exposed by carefully placing a C-retractor over the anterior wall just proximal to the equator and a single Steinmann pin into the ilium superiorly to the acetabulum and posterior pointed retractor safely into the ischium posteriorly, carefully making sure sciatic nerve was not in danger. Both retractors and pins were placed in the interval outside the labrum, yet within the hip capsule to avoid any neurovascular injury. The pulvinar and labrum were excised with Bovie electrocautery to maintain hemostasis. The acetabulum was prepared with progressively larger hemispherical reamers in 2-mm increments down to bleeding subchondral bone to obtain circumferential coverage and an interference fit allowing a small amount of posterolateral uncoverage less than 20% to provide adequate anteversion. The depth of acetabular reaming was carried out according to preoperative templating. The acetabulum was irrigated with pulsavac lavage and the lag screw perforation was filled with cancellous bone chips as autologous bonegraft couldn't be used as it was sent for pathology. The cementless hemispherical acetabular component was impacted into the socket in ~25 degrees of anteversion and ~45-50 degrees of abduction. Adequate press-fit and stability were obtained. Final impaction of the acetabular component was carried out with the blunt-tipped impactor and a final check was performed through the dome hole to ensure adequate implant seating. Three divergent acetabular bone screws were then placed into the safe posterior-superior quadrant with standard technique. One screw placed into ischium. A trial acetabular liner was inserted. The acetabular retractors were carefully removed and attention was turned to the femur. The Charnley retractor was removed and a femoral elevator was placed along the anterior femoral neck to expose the proximal femur. Cobra retractors were placed around the medial calcar and lateral trochanter to further expose the femur and protect the surrounding tissue. The femoral preparation wasperformed with progressively increasing sized reamers for diaphyseal engaging taper fluted stem until adequate mediolateral fit and fill was obtained with accompanying axial and rotational stability of the trial and optimized anteversion based on the femoral neck version. The trial head-neck assembly was attached to the broach and the hip was carefully reduced. The hip was assessed for leg-lengthbased on the predislocation position of the heels with the knees colinear and felt to be satisfactory. The various offset necks and head lengths were utilized to optimize the myofascial tension and minimize extraarticular bony impingement while maintaining the appropriate leg-length, stability and range of motion. Intra-operative X-ray was obtained, we did decide to upsize the stem to maximize fit-fill. The hip was carefully dislocated with the aide of a T-handled bone hook and the appropriate head-neck trial was removed. The femoral component rotation was noted and marked. The broach was removed and the actual implant was brought onto the surgical field. The acetabular component was re-exposed with retractors and the shell was irrigated with saline lavage. The acetabular dual mobility liner was impacted into place, inspected and observed to be locked securely into the metal shell. The femoral canal was again exposed with a femoral elevator and irrigated with Pulsavac lavage. A prophylactic cable was placed according to standard protocol, ensuring intimate bony contact during passage of the cable and with tightening. The femoral stem was impacted in press-fit mode and obtained excellent axial and torsional stability. There was no intraoperative fracture or other complication noted with either manual palpation or visual inspection upon implant seating. The proximal body was ream ed to a C. A trial hip reduction was performed with a trial femoral head/neck and found to demonstrate adequate stability. The final proximal body was impacted into the appropriate version and screw placed and head was then impacted onto the clean and dry Truong taper. The acetabular liner was irrigated with Pulsavac lavage and cleared of any debris. The hip was then carefully reduced. Leg length uatsdin appeared satisfactory based on the intraoperative landmarks to replicate the preoperative templating and was confirmed with the heel measurement on the table with the knees colinear. The hi p was stable to full hip extension and external rotation to the limits of the anterior capsule and soft-tissues without any prosthetic impingement. The hip was stable in the position of sleep, stablein neutral rotation with the knee to the chest and stable with 90-degrees hip flexion and internal rotation to 80 degrees. Attention was turned to closure. The hip was irrigated with copious pulsatile normal saline irrigation after a 3 minute dilute betadine lavage. The sleeve of short external rotators and capsule was reattached in anatomic fashion to the undersurface of the greater trochanter and posterior femur with #4 Ethibond through soft tissue.The sciatic nerve was gently palpated along its length and found to be mobile and not under excessive tension or tethering. Adequate hemostasis was obtained with minimal active bleeding. Drain was placed. 0-Vicryl and #1 Vicryl used to repair lateralis fascial incision and any areas where abductor was deficient this was repaired. The fascia babar was closed with running #1 Stratafix monofilament ba rbed suture. #1 Vicryl suture was then placed to secure the prior running suture. The dermal layer was closed with 2-0 vicryl suture and the skin was closed with a running 3-0 Monocryl suture. Dermabond skin sealant was used. A sterile Silverlon was applied, hip positioner removed, and pillows placed between the knees. All sponge and needle counts were correct at the end of the case and I was present during all critical aspects of the surgical procedure. The patient was placed in the supine position, extubated and transferred to the recovery room. * Brief Op Note - Berry Mares MD - 10/10/2022 3:13 PM EDT Date: 10/03/2022 - 10/10/2022 Location: [facility] OR Name: Donna Marsh, : 1955, Diagnosis Pre-op Diagnosis * Failed orthopedic implant, initial encounter ([facility]) [T84.498A] Post-op Diagnosis * Failed orthopedic implant, initial encounter ([facility]) [T84.498A] Procedures LEFT CONVERSION TOTAL HIP REPLACEMENT WITH REMOVAL OF HARDWARE - OK ARTHRP ACETBLR/PROX FEM PROSTC AGRFT/ALGRFT Surgeons * Berry Mares - Primary Procedure Summary Anesthesia: General ASA: III Estimated Blood Loss: 600 mL Drains: Closed/Suction Drain Left Accordion 10 Fr. (Active) Urethral Catheter Non-latex 16 Fr. (Active) Female External Urinary Catheter (Active) External Catheter Status Changed 10/09/22 0039 Securement Method Adhesive device 10/09/22 003 Output (mL) 1700 mL 10/10/22 0600 Marj-Care Soap and water 10/09/22 0039 Specimens ID Source Type Tests Collected By Collected At Frozen? Priority Lab ID 1 Leg, Left Tissue TISSUE EXAM Berry Mares MD 10/10/22 1720 No Routine Description: FEMORAL HEAD A Hip, Left Tissue AEROBIC AND ANAEROBIC CULTURE WITH STAIN Berry Mares MD 10/10/22 1637 [id number], [id number] Description: LEFT HIP CULTURE B Hip, Left Tissue AEROBIC AND ANAEROBIC CULTURE WITH STAIN Berry Mares MD 10/10/22 1648 Routine [id number], [id number] Description: LEFT HIP CULTURE C Hip, Left Tissue AEROBIC AND ANAEROBIC CULTURE WITH STAIN Berry Mares MD 10/10/22 1750 Routine [id number], [id number] Description: LEFT HIP TISSUE CULTURE Implants Type Name Action Serial No. Orthobiologics Bone FILLER BN VOID 5ML 1.7-10MM - [id number] - [id number] Implanted [id number] Screw REDAPT 25MM LOCKING SCREW Implanted Screw REDAPT 20MM LOCKING SCREW Implanted Screw SCREW ACET 6.5X25MM SPHERE - [id number] Implanted Screw SCREW ACET 6.5X40MM SPHERE - [id number] Implanted Implant 50MM OD REDAPT MODULAR SHELL Implanted Screw REDAPT 20MM LOCKING SCREW Implanted Implant OXINIUM DH DUAL MOBILITY LINER Implanted Orthopedic Implant STEM DISTAL JOSH SPL [id number] - [id number] Implanted Internal and External Fixation CABLE ORTH COCR 2MM 75MM TROCH - [id number] Implanted Orthopedic Implant BODY PROX JOSH C STD 60MM - [id number] Implanted Joint Knee HEAD FEM BIOLOXD OPTION 28MM - [id number] Implanted Implant TAPER SLEEVE Implanted Orthopedic Implant DUAL MOBILITY INSERT Implanted Staff: Rn Clinician: Meron Madden RN Relief Rn Clinician: Zakia Joya RN; Ronnie Cooley RN; Monica Willard RN Relief Scrub: Anuja Ríos RN; Jen Peralta Scrub Person: Branden Barton Findings: See full op report Complications: None; patient tolerated the procedure well. Specimens Collected: Order Name Source Comment Collection Info Order Time AEROBIC AND ANAEROBIC CULTURE WITH STAIN Hip, Left Pre-op diagnosis: Failed orthopedic implant, initial encounter ([facility]) [T84.498A] Collected By: Berry Mares MD 10/10/2022 4:38 PM AEROBIC AND ANAEROBIC CULTURE WITH STAIN Hip, Left Pre-op diagnosis: Failed orthopedic implant, initial encounter ([facility]) [T84.498A] Collected By: Berry Mares MD 10/10/2022 4:59 PM AEROBIC AND ANAEROBIC CULTURE WITH STAIN Hip, Left Pre-op diagnosis: Failed orthopedic implant, initial encounter ([facility]) [T84.498A] Collected By: Berry Mares MD 10/10/2022 6:21 PM HEMOGLOBIN AND HEMATOCRIT, BLOOD Blood, Venous Recommend 1 hour post transfusion 10/10/2022 4:47 PM PREPARE RBC 10/10/2022 4:47 PM Transfusion indications Other (Specify) Other indication SURGERY Has consent been obtained? Yes PREPARE RBC 10/10/2022 6:04 PM Transfusion indications Other (Specify) Other indication SURGERY Has consent been obtained? Yes TISSUE EXAM Leg, Left Pre-op diagnosis: Failed orthopedic implant, initial encounter ([facility]) [T84.498A] Collected By: Berry Mares MD 10/10/2022 5:20 PM Wound Class: Class I: Clean Blood Products: PRBC 2 units, 100 albumin Crystalloid: 2,500 crystalloid Prophylactic Antibiotics: Procedure appropriate prophylactic antibiotic(s) given within 1 hour of surgical incision (two hours if receiving Vancomycin or flouroquinolone) - re-dosed 3 hours later * Care Coordination - Ilia Owens RN - 10/10/2022 1:24 PM EDT To OR via bed, daughter at bedside. * Care Coordination - Rosalba Elizalde RN - 10/10/2022 11:18 AM EDT Images from the original note were not included. Care Management Progress Note Patient remains on H6 left cephalomedullary nail for peritrochanteric hip fracture on 08/06. Plan for return to OR today for removal of hardware and revision COSTA. Will need PT/OT when appropriate. Patient is from [facility] as a bed hold, however will need insurance authorization. Facility updated. Discharge Milestones and Delays Expected Date/Time: 10/13/[address] discharge order Complete med reconciliation Case mgmt discharge readiness Clinical Stability Diagnsotic Workup Expected Discharge History Expected Date/Time Set By Reviewed At 10/13/2022 CARMEN Joshi 10/10/2022 9:20 AM OR 10/1010/13/2022 Rosalba Elizalde RN 10/09/2022 8:24 AM 10/12/2022 Rosalba Elizalde RN 10/06/2022 8:36 AM 10/11/2022 CARMEN Joshi 10/05/2022 9:23 AM 10/06/2022 Rudy Quintana PA-C 10/04/2022 2:43 PM 10/06/2022 Rudy Quintana PA-C 10/03/2022 7:11 PM Length of Stay (Days): 7 GMLOS: 2.7 * Care Coordination - Rosalba Elizalde RN - 10/09/2022 8:17 AM EDT Images from the original note were not included. Care Management Progress Note Patient remains on H6 s/p left cephalomedullary nail for peritrochanteric hip fracture on 08/06. Plan for return to OR on 10/10 for removal of hardware and revision COSTA. Will need PT/OT when appropriate. Patient is from [facility] and will need a precert to return. Discharge Milestones and Delays Expected Date/Time: 10/12/[address] discharge order Complete med reconciliation Case mgmt discharge readiness Clinical Stability Diagnsotic Workup Expected Discharge History Expected Date/Time Set By Reviewed At 10/12/2022 Rosalba Elizalde RN 10/06/2022 8:36 AM OR 10/1010/11/2022 CARMEN Joshi 10/05/2022 9:23 AM 10/06/2022 Rudy Quintana PA-C 10/04/2022 2:43 PM 10/06/2022 Rudy Quintana PA-C 10/03/2022 7:11 PM Length of Stay (Days): 6 GMLOS: 2.7 * Care Coordination - Rosalba Elizalde RN - 10/06/2022 8:06 AM EDT Images from the original note were not included. Care Management Progress Note Patient remains on H6 s/p left cephalomedullary nail for peritrochanteric hip fracture on 08/06. Plan for return to OR on 10/10 for removal of hardware and revision COSTA. Patient is from [facility] and will need a precert to return. Facility updated. Discharge Milestones and Delays Expected Date/Time: 10/11/[address] discharge order Complete med reconciliation Case mgmt discharge readiness Clinical Stability Diagnsotic Workup Expected Discharge History Expected Date/Time Set By Reviewed At 10/11/2022 CARMEN Joshi 10/05/2022 9:23 AM OR 10/1010/06/2022 Rudy Quintana PA-C 10/04/2022 2:43 PM 10/06/2022 Rudy Quintana PA-C 10/03/2022 7:11 PM Length of Stay (Days): 3 GMLOS: 2.7 * Care Coordination - Sayda Quezada - 10/05/2022 8:44 AM EDT Referral placed to SNF[facility] via [facility] per TCC request. Await review and response regarding ability to accept. TCC notified. 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 as indicated: Confirmation of Payer with patient/family: Yes Payer Name: Leandra BUTTERFIELD : No Confirmation of Primary Care Physician: Confirmed PCP Name: Dr Cici Calderon Seen in last 2 years?: Yes Primary Caregiver: Self If assistance needed, confirmed caregiver ready, willing and able to care for patient at discharge:Yes Confirmed with: [facility] [place] staff via [facility] Living Arrangements Current Residence: Number of Floors Number of Entry Steps: Bed/Bath Levels: Facility: Nursing Facility Skilled Facility Name: [facility] Plan to Return: Yes Lives with: (Currently at SNF) Support Systems: Spouse/significant other, Children, Family members, Friends/neighbors (SNF staff and residents) Activities of Daily Living Ambulation: Assistance Bathing/Dressing: Assistance Elimination/Continence/Toileting: Assistance Feeding: Independent Who Assists with Activities of Daily Living: [facility] staff Instrumental Activities of Daily Living Prescription Coverage: Yes Pharmacy Used: [facility] Medication Management: ([facility] nurses manage meds) Transportation/Shopping: Independent Transportation Mode: Car Needs Assistance with Transportation at Discharge: Yes ([employer] will have to set up return transport) Meal Preparation: Assistance Provider Meal Prep Assistance Provider Name: [facility] [place] staff Laundry/Cleaning: Assistance Provider Laundry/Cleaning Assistance Provider Name: [facility] [place] staff Finances/Bill Paying: Assistance Provider Finances/Bill Payer Assistance Provider Name: Eduardo Communication: Independent Types of Care Services/Equipment Utilized Care Services: Dialysis Type: Durable Medical Equipment: Walker, Cane, Wheelchair (standard or power), Raised Toilet Seat, ShowerSeat (Grab bars) Patient's Goal/Discharge Plan Patient expects to be discharged to: Return to [place] in [facility] Discharge Planning Actions: Continue to follow, Care Home Facility referral indicated [place] discussed Patient's Choice Rights and [employer] and Collaborative Relationships Disclosed as Indicated for Post-Acute Care: Yes Interdisciplinary Team Engagement: PT/OT Social Work Referral for: Additional Information: Introduced self and role. Patient is admitted (ED roomed) for severe left hip pain after COSTA. Sent back from [facility] for surgery re- eval, awaiting notes to determine plan. [facility]is currently [facility] to set up return transportation. Sees Dr Cici Calderon (PCP) routinely. Has insurance and prescription coverage, uses [facility]. Patient denies any financial difficulties. Plan to return to SNF when medically stable. Will need pre-cert prior to return. Patient verbalizes understanding and is in agreement with POC. Holli Bhagat RN documented in this [facility]08-30-[facility]23 [facility] 10-10-2022 [facility] Hospital Discharge instructions * Discharge Instructions* Luis Causey MD - 10/10/2022 7:49 PM EDT Images from the original note were not included. Dr. Berry Mares Adult Hip and Knee Reconstruction [phone] Total Hip Discharge Instruction Physical Therapy Physical Therapy should be arranged for you prior to your discharge. Therapy should begin 1 or 2 days after surgery and continue 3 times a week for a month. Do the exercises at home on the days you do not see a therapist. Dressing Your wound will be covered by a dressing after surgery. It should usually be removed after 10 days.You can shower as long as there is no drainage from the wound. After the dressing is removed it is not recommended to apply any cream, ointment or lotion to the wound unless specifc instructions are given by your surgeon. Caring for your Wound - DERMABOND PRINEO DRESSING DERMABOND PRINEO System is the combination of a mesh and a liquid adhesive that allows the incisionor wound to be held together during the healing process. DERMABOND PRINEO System should remain in place until your healthcare professional has determined that adequate healing has occurred, which is usually anywhere between 7-14 days. In most cases, DERMABOND PRINEO System is easily removed with little or no discomfort. In the event that you notice that DERMABOND PRINEO System is beginning to loosen or may be coming o, contact your healthcare professional. The following information is provided to help you understand how to care for your incision. You should always follow the instructions of your healthcare provider Things to know Bathing or showering If directed by your healthcare professional, you may occasionally and briefly wet your incision or wound that was treated with DERMABOND PRINEO System in the shower or bath. Do not soak or scrub yourincision or wound. Do not swim or soak your incision or wound in water. After showering or bathing,gently blot your incision or wound dry with a soft towel. If a dry protective dressing is being used over DERMABOND PRINEO System, it should be replaced with a fresh, dry protective dressing after showering or bathing as directed by your health care practitioner. Care should also be taken so that any tape that may be part of the dry protective dressing does not come into contact with DERMABOND PRINEO System because when the tape is removed, it may also remove DERMABOND PRINEO System. Wound healing If you experience any redness, swelling, discomfort, warmth or pus, contact your healthcare professional and he or she will determine how your incision or wound is healing and take the necessary steps to address any issues. Exercise Do not engage in strenuous exercise that may cause additional stress on your incision or wound. Follow your healthcare professional s guidance about when you can return to your normal activities. Removing DERMABOND PRINEO System Your healthcare professional will determine when the healing process of your incision or wound has been completed and DERMABOND PRINEO System is ready to be removed, which is usually between 7 to 14 days. You will have an outer bandage that is placed over the prineo mesh. This bandage may come off 7-10 days after surgery. You may shower with this bandage on, but do not bathe or submerge the incision until cleared by provider at initial pos-op visit. After this bandage is removed, the prineo mesh will gradually fall off on its own. If there are parts of the mesh that are peeling off on their own, you ay cut these parts with scissors, but do not peel any mesh off that is not already coming off on its own. This will eventually all fall off with time, or your provider will remove it at your initial post-op visit. You may shower with both the bandage and the prineo mesh, but do not bathe or submerge the incision or rub any lotion, gels or creams over it until cleared by provider at initialpos-op visit. When healing is complete, your healthcare professional will carefully peel off the DERMABOND PRINEOSystem. Prior to removal, do not scratch, rub or pick at the mesh. This may loosen the adhesive and mesh before the skin is healed. In the event that you notice that DERMABOND PRINEO System is beginning to loosen and may be coming off or comes off the skin wound, contact your healthcare professional Ointments or liquids Topical ointments, liquids or any other product (other than dry bandages) should not be applied to the incision while DERMABOND PRINEO System is in place. These may loosen DERMABOND PRINEO System from the skin before it has completely healed. Most of the time, your stitches will be under the skin and will dissolve of their own. If you have yasmeen or external stitches they can be removed 10 days after surgery as long as there is no drainage. If the wound is draining, the dressing should be changed daily. The wound should be dry and without drainage by about 7 days postoperative. If there is persistent drainage from the wound after this time period, you should call our office immediately. If there is worsening redness around the incision, you should also call the office immediately. These may be signs of a superficial or deep woundinfection and you may have to return to the office for an evaluation by one of our staff. Common concerns after hip replacement surgery include swelling and bruising. These can be quite signifcant in nature and can appear anywhere from the thigh to the toes. These are typically worse at night which can contribute to trouble sleeping comfortably for more than one to two hours at a time. Activity You will be using an assistive device (walker, crutches, or cane). Your physical therapist will help you with this. Most patients are able to get in and out of bed, use the rest room, and go up and down stairs when they go home. We d like you to get up and walk every hour after surgery. For the first 1-2 weeks you will be walking with a walker or two crutches. After that, you can start using a cane. Preventing Postoperative Hip Dislocations Dislocations are rare, but if they occur they most often occur the first 3 months after surgery. Before surgery, the physical therapist begins teaching you special precautions and how to avoid dislocation. After surgery, everyone will be reminding you not to bend the hip too much, not to twist at the waist, and to avoid turning your leg in or out.patients hip joints are so stable after surgery that they do not have dislocation precautions. If you are one of these patients, the therapist will tell you not to worry about dislocation but you should still avoid extreme bending and twisting. Again, your therapist will go over this after surgery. Bathing Your dressing is waterproof. You may take a shower but not a bath. Precautions It is very common to have swelling and bruising in the thigh, lower leg and foot after surgery. Elevating your leg, doing ankle pump exercises, and using ice packs will help. Call us if the swelling does not subside overnight. Call for a temperature over 101. Take the pain medications as needed for pain. Pain pills can cause constipation. Use over the counter stool softeners like Colace to avoid constipation. If Colace is not effective use a gentle over the counter laxative such as Miralx Please refer to your medication sheet for more information regarding any prescriptions you have been given to take after surgery. Follow up office visit The Doctor would like see you in 4 weeks. If the followup appointment is not already made the office will call within 2 weeks. Please avoid any other surgery, procedure or dental procedure until cleared by Dr. Mares Common Questions About Hip Replacement Question: How long can I expect to have pain after surgery? Answer: The time varies for each patient. Many patients report that there is very little pain rightafter surgery, but postoperative soreness may continue for 3 - 4 weeks. Question. How long until bone ingrowth occurs? Answer. Bone ingrowth occurs between 6 weeks and 1 year. Question. How long after surgery will I have to limit weight bearing on my leg? Answer. The amount of weight you are allowed to put on your leg varies from full weight bearing to just the weight of your foot. Several surgical factors are considered in making this decision and your surgeon will inform you of your weight bearing status following the procedure. Most patients are cleared to be full weightbearing, as tolerated. Question. Why do I have to take a blood thinner after surgery and how long will this continue? Answer. A blood thinning medicine is recommended to prevent blood clots and is usually discontinuedafter your first follow-up appointment. Question: When can I resume sexual activities? Answer. You can resume sexual activity 3 - 6 weeks after surgery. The physical therapist donal grande. Question: Why does the skin feel funny around my incision? Answer: The nerves in the skin cross the front of the hip in an inside-out direction. When an incision is made on the hip, these tiny nerves are divided and the skin on the outside will feel fuzzy ornumb. This sensation will lessen with time and is normal for all patients with hip replacement surgery. Question: Why is my leg discolored? Answer: You may develop some discoloration (like a bruise) in the leg. This discoloration, which may extend to the hip or ankle, will slowly disappear. Question: What about cocoa butter and vitamin E oil? Answer: Do not use either of these until after your four week postoperative visit. Ask for clearance to use during that visit. Question: A stitch is sticking out. What do I do? Answer: We often suture the skin from underneath to reduce scarring. The knot at the end of the stitch sometimes will protrude from the skin. Redness and a small amount of drainage may appear. Cleanse the skin with peroxide. Please notify your surgeon s of office. Question: When can I drive my car? Answer: Usually after 4 weeks. A patient s decision to drive sooner is a personal decision related to their mobility and pain control. You cannot drive while you are taking narcotic pain medicine such as [place], Percocet, Hydrocodone or Oxycodone. Question: When can I go in the swimming pool? Answer: Ordinarily, patients may resume pool activities after the first follow- up visit. Be sure tocheck with the surgeon or fellow at that time. Question. When can I start playing tennis, ski or golf? Answer. Active sports are generally not resumed until 3 - 6 months after surgery.This is to allow for bone ingrowth of your new hip and muscle strengthening. Question. When will I be able to return to work? Answer. This depends on the type of work you do as well as several other factors. This luis an individual basis and you should discuss with your surgeon. * Discharge Instr - TIN* Miguel Jeffrey Ari - 10/06/2022 8:03 AM EDT Continuity of Care Form Patient Name: Donna Marsh : 1955 Admit date: 10/03/2022 Discharge date: 10/15/2022 Code Status Order: Full Code Advance Directives: N Admitting Physician: Sofia Sena MD PCP: CICI CALDERON Discharging Nurse: Omar Zarco Discharging Hospital Unit/Room#: [id number]/[id number] A Discharging Unit Emergency Contact: Extended Emergency Contact Information Primary Emergency Contact: Joo Bernstein Relation: None Past Surgical History: Past Surgical History: Procedure Laterality Date CARPAL TUNNEL RELEASE HYSTERECTOMY ORIF DISTAL RADIUS FRACTURE (HISTORICAL) Left 08/06/2022 TONSILLECTOMY (HISTORICAL) Immunization History: There is no immunization history on file for this patient. Active Problems: Medical Problems Problem List * (Principal) Complication of internal hip prosthesis, initial encounter ([facility]) Failed orthopedic implant ([facility]) ([facility]) Left hip pain Isolation/Infection: No active isolations No active infections Nurse Assessment: Last Vital Signs: BP 115/61 Pulse 85 Temp 36.4 C (97.6 F) (Temporal) Resp 20 Ht 1.626 m (5'4) Wt 65.8 kg (145 lb) SpO2 91% BMI 24.89 kg/m Last documented pain score (0-10 scale): Last Weight: Wt Readings from Last 1 Encounters: 10/03/22 65.8 kg (145 lb) Mental Status: TIN Patient Mental Status: oriented and alert IV Access: TIN IV Access: None Nursing Mobility/ADLs: Walking Total assistance Transfer Total assistance Bathing Total assistance Dressing Minimal assistance Toileting Total assistance Feeding 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 Independent Med Delivery yes Wound Care Documentation and Therapy: n/a Elimination: Continence: Bowel: no Bladder: no Urinary Catheter: None Colostomy/Ileostomy/Ileal Conduit: None Date of Last BM: 10/14/2022 Intake/Output Summary (Last 24 hours) at 10/06/2022 0802 Last data filed at 10/06/2022 0500 Gross per 24 hour Intake 720 ml Output 400 ml Net 320 ml I/O last 3 completed shifts: In: 720 (10.9 mL/kg) [P.O.:720] Out: 400 (6.1 mL/kg) [Urine:400 (0.2 mL/kg/hr)] Weight: 65.8 kg Safety Concerns: at risk for falls Impairments/Disabilities: none Nutrition Therapy: Current Nutrition Therapy: Oral diet: carb control 3 carbs/meal (1500kcals/day) Routes of Feeding: oral Liquids: no restrictions Daily Fluid Restriction: no Last Modified Barium Swallow with Video (Video Swallowing Test): not done Treatments at the Time of Hospital Discharge: Respiratory Treatments: none Oxygen Therapy: is not on home oxygen therapy. Ventilator: No ventilator support Rehab Therapies: physical therapy and occupational therapy Weight Bearing Status/Restrictions: partial weight bearing (25% weight bearing on LLE) Other Medical Equipment (for information only, NOT a DME order): none Other Treatments: none Patient's personal belongings (please select all that are sent with patient): none CASE MANAGEMENT/SOCIAL WORK SECTION Inpatient Status Date: 10/03/22 Readmission Risk Assessment Score: @READMISSIONRISKDETAILS@ Discharging to Facility/ Agency Name: [address] [address] Address: Fax: Dialysis Facility (if applicable) Name: Address: Dialysis Schedule: Phone: Fax: Drapery Inspector/Mold Engraver signature: ICIAN SECTION Prognosis: fair Condition at Discharge: stable Rehab Potential (if transferring to Rehab): fair Recommended Labs or Other Treatments After Discharge: none Physician Certification: I certify the above information and transfer of Donna Marsh is necessaryfor the continuing treatment of the diagnosis listed and that she requires residential facilityfor less than 30 days. Update Admission H&P: No change in H&P PHYSICIAN SIGNATURE: documented in this [facility]08-29-2023 [facility] 10-10-2022 [facility] Miscellaneous Notes* Telephone Encounter - Regina Oden DO - 10/06/2022 5:39 PM EDT I spoke with Joo and answered all her questions that I could. Regina Oden DO * Telephone Encounter - Cristina Graham LPN - 10/06/2022 8:38 AM EDT Patient's daughter is aware that patient cannot have the labs ordered by Dr. Oden at [facility]. We will wait until she is able to come in and have labs drawn. Dr. Oden- patient's daughter, Joo, is asking if you could call her? [phone]. Cristina Graham LPN * Telephone Encounter - Daksha Tang - 10/05/2022 10:27 AM EDT Daughter, Joo called in stating patient has been admitted into [facility]. Please advise if orders can be sent there for patient? * Telephone Encounter - Cristina Graham LPN - 10/05/2022 10:21 AM EDT The only lab orders Dr. Oden would lik are: CBC with staff review and immunodeficiency CDC. I called and let Jaclyn in lab know and I also called and left a message for the patient to contact the office to schedule lab work. Cristina Graham LPN * Telephone Encounter - Shanna Duval - 10/04/2022 8:25 AM EDT Spoke with Jaclyn from the Lab. She will double check with provider on the labs prior to scheduling. analytical tech will call this PSS back once labs are good to go for scheduling. Shanna Duval * Telephone Encounter - Regina Oden DO - 10/03/2022 7:36 PM EDT Please have her come to our lab for additional lab work. Check with lab to see if can be drawn here. Regina Oden DO * Telephone Encounter - Daksha Tang - 10/03/2022 1:22 PM EDT Daughter calling to see if bone marrow results are in. Results scanned into system. (Upside down) Copies placed on dr. Oden desk. Spoke with Dr. Oden , he hasn't decided on plan as yet. Janie Parker LPN [facility] Consult note* Yana Morgan NP - 10/06/2022 12:12 PM EDTAssociated Order(s): IP WOUND CARE NURSE CONSULT TO EVAL Images from the original note were not included. [facility] Wound Care CONSULT Note Donna Marsh AGE: 66 y.o. GENDER: female : 1955 Subjective: HISTORY of PRESENT ILLNESS HPI Donna Marsh is a 66 y.o. female who presents for a wound consult. HPI: Ms. Marsh is a 66 y.o. female who is admitted to the hospital for hip hardware malposition. Patient underwent short cephalomedually nail placement on 08/06. After imaging was obtained in the ortho office yesterday, she was sent to [place] ED for further evaluation, imaging, and treatment. CTpelvis and further contrasted imaging demonstrated migration of that lag screw proximally into the retroperitoneum, in very close proximity to the left external iliac artery. Vascular surgery contacted and is planning for surgery. Wound Care consulted for abdomen ulcer. Patient reports she likes to pick her skin. Reports she was apply neosporin and covering it daily. PAST MEDICAL HISTORY Past Medical History: Diagnosis Date Bipolar 1 disorder (HCC) Diabetes mellitus (HCC) Hyperlipidemia Hypertension Neuropathy PAST SURGICAL HISTORY Past Surgical History: Procedure Laterality Date CARPAL TUNNEL RELEASE HYSTERECTOMY ORIF DISTAL RADIUS FRACTURE (HISTORICAL) Left 08/06/2022 TONSILLECTOMY (HISTORICAL) FAMILY HISTORY No family history on file. SOCIAL HISTORY Social History Tobacco Use Smoking status: Former Packs/day: 1.00 Years: 15.00 Pack years: 15.00 Types: Cigarettes Quit date: 07/26/2022 Years since quittin.1 Smokeless tobacco: Never Substance Use Topics Alcohol use: No Drug use: Yes Types: Marijuana ALLERGIES Allergies Allergen Reactions Codeine Other reaction(s): Intolerance, Itching Itching Fentanyl Other reaction(s): confusion Morphine Other Loss of Memory Nsaids Rash MEDICATIONS No current facility-administered medications on file prior to encounter. Current Outpatient Medications on File Prior to Encounter Medication Sig Dispense Refill acetaminophen (Tylenol Extra Strength) 500 MG tablet Take by mouth. alendronate (Fosamax) 70 MG tablet atorvastatin (Lipitor) 20 MG tablet Take 20 mg by mouth. bisacodyl (Dulcolax) 10 MG suppository Insert into the rectum. busPIRone (Buspar) 15 MG tablet carvedilol (Coreg) 3.125 MG tablet Take by mouth. celecoxib (CeleBREX) 200 MG capsule Take 200 mg by mouth. ergocalciferol (Vitamin D-2) 1.25 MG (86401 UT) capsule Take by mouth. fexofenadine (Roc) 180 MG tablet Take by mouth. FLUoxetine (PROzac) 20 MG capsule Take 20 mg by mouth in the morning. glipiZIDE (Glucotrol) 10 MG tablet Take by mouth. lisinopril 20 MG tablet Take by mouth. omeprazole (PriLOSEC) [address] capsule Take by mouth. oxybutynin XL (Ditropan-XL) 10 MG 24 hr tablet oxyCODONE (Roxicodone) 5 MG immediate release tablet Take 5 mg by mouth. sodium phosphate (Fleets) 7-19 GM/118ML enema enema Insert into the rectum. traMADol (Ultram) 50 MG tablet Take by mouth. REVIEW OF SYSTEMS Pertinent items are noted in HPI. Objective: BP 115/61 Pulse 85 Temp 36.4 C (97.6 F) (Temporal) Resp 20 Ht 1.626 m (5' 4) Wt 65.8 kg (145 lb) SpO2 91% BMI 24.89 kg/m PHYSICAL EXAM General appearance: in no apparent distress, well developed and well nourished, alert, oriented times 3, and cooperative, obese Skin: warm and dry Pulmonary: Normal effort, no respiratory distress, no cyanosis Abdomen: soft, nontender, and nondistended Right lower abdomen: 1.0cmx1.0cmxUTD. 100% dry eschar present. No drainage. Periwound intact and fragile LABS CBC: Lab Results Component Value Date WBC 12.2 (H) 10/06/2022 HGB 11.5 (L) 10/06/2022 HCT 36.0 10/06/2022 MCV 92.5 10/06/2022 PLT 350 10/06/2022 BMP: Lab Results Component Value Date NA 138 10/06/2022 K 4.8 10/06/2022 CL 103 10/06/2022 CO2 24 10/06/2022 BUN 27 (H) 10/06/2022 CREATININE 0.72 10/06/2022 PT/INR: Lab Results Component Value Date PROTIME 11.0 10/03/2022 INR 1.0 10/03/2022 Prealbumin: No results found for: PREALBUMIN Albumin:No components found for: LABALBU Sed Rate: Lab Results Component Value Date SEDRATE 46 (H) 10/03/2022 Micro: No components found for: BC Assessment/Plan: Right lower abdomen: Chronic non-healing non pressure ulcer - Apply skin prep then leave PAULINO daily and PRN Nutritional support Wound Care to follow Recommend to follow up at [facility] wound care center after hospital discharge. Any questions or concerns please secure chat [facility] wound/ostomy. Thank you for the consult! I personally obtained the roque and critical portions of the history and physical exam. I reviewed the labs, imaging studies, and electronic medical record. I reviewed the chart documentation and discussed the patient with treatment team members. I have edited the note to reflect my clinical findingsand my assessment and plan. Please note, the time of this note does not reflect the time I saw thispatient today, but the time of this documentaton. Portions of this note including HPI, ROS, impression/plan, and examination may have been copied forward from admission to today as to provide important historical information essential in contributing to medical decision making. Documentation has been reviewed and edited as necessary to support clinical decision making for today's visit and to reflect my own independent evaluation of this patient. Decision making for today's visit and to reflectmy own independent evaluation of this patient. * Cece Kramer PA-C - 10/04/2022 2:54 PM EDTAssociated Order(s): IP CONSULT TO VASCULAR SURGERY Vascular Surgery Consultation Note Reason for Consult: concern for left hip screw near left external iliac artery HISTORY OF PRESENT ILLNESS: The patient is a 66 y.o. female who is admitted to the hospital for treatment of left hip hardware malposition. She is s/p left hip surgery in 07/2022 s/p fall. She presented to ortho clinic yesterdayafter imaging completed and recommended to go to ED for further evaluation. CTA of pelvis completeddue to concern for proximity of left external iliac artery to left hip screw. Vascular surgery is consulted for evaluation and treatment. Upon entering room, patient lying in bed, recently transferred to the floor. She states she can notstand or sit for long periods of time due to left hip pain. She is most comfortable when she is laying down with head of bed slightly elevated. She feels her pain is adequately controlled. She statessince surgery, she has not walked more than 3-4 steps at a time with a walker. She notes her previous incision healed well without complication. She does note she had pneumonia about 1 month ago. Shefeels breathing continues to improve. Patient denies history of stroke, TIA, amaurosis fugax, hemiparesis, facial drooping, and dysarthria. Patient denies claudication, rest pain, or nonhealing ulcerations. IMPRESSION: 66 year old female s/p ORIF in 07/2022 with left lag screw near left external iliac artery RECOMMENDATIONS: -CT reviewed with Dr. Pacheco -Will coordinate surgical care with general and orthopedic surgery for safest plan for the patient Past Medical History: Diagnosis Date Bipolar 1 disorder (HCC) Diabetes mellitus (HCC) Hyperlipidemia Hypertension Neuropathy Past Surgical History: Procedure Laterality Date CARPAL TUNNEL RELEASE HYSTERECTOMY TONSILLECTOMY (HISTORICAL) Current Medications: PRN medications: acetaminophen OR acetaminophen, dextrose, dextrose, glucagon (rDNA), glucose, morphine sulfate, ondansetron ODT OR ondansetron, polyethylene glycol (PEG) 3350 atorvastatin, 20 mg, Oral, Daily busPIRone, 15 mg, Oral, BID carvedilol, 3.125 mg, Oral, BID WC FLUoxetine, 20 mg, Oral, Daily insulin lispro, 0-12 Units, SubCUTAneous, q6h And insulin lispro, 0-12 Units, SubCUTAneous, Nightly lisinopril, 20 mg, Oral, Daily [START ON 10/05/2022] pantoprazole, 40 mg, Oral, qAM AC Allergies: Codeine, Fentanyl, Morphine, and Nsaids Social History Socioeconomic History Marital status: Spouse name: Not on file Number of children: Not on file Years of education: Not on file Highest education level: Not on file Occupational History Not on file Tobacco Use Smoking status: Never Smokeless tobacco: Never Substance and Sexual Activity Alcohol use: No Drug use: No Sexual activity: Not on file Other Topics Concern Not on file Social History Narrative Not on file Social Determinants of Health Financial Resource Strain: Not on file Food Insecurity: Not on file Transportation Needs: Not on file Physical Activity: Not on file Stress: Not on file Social Connections: Not on file Intimate Partner Violence: Not on file Housing Stability: Not on file No family history on file. REVIEW OF SYSTEMS: The chart was reviewed. Review of Systems Constitutional: Negative for appetite change, chills and fever. Eyes: Negative for visual disturbance. Respiratory: Negative for chest tightness and shortness of breath. Cardiovascular: Negative for chest pain and leg swelling. Skin: Negative for wound. Neurological: Negative for dizziness, facial asymmetry, speech difficulty, light-headedness and numbness. Psychiatric/Behavioral: Negative. LABS: Lab Results Component Value Date CREATININE 0.69 10/04/2022 Lab Results Component Value Date WBC 12.0 (H) 10/04/2022 HGB 12.2 10/04/2022 HCT 37.2 10/04/2022 MCV 90.7 10/04/2022 PLT 392 10/04/2022 Lab Results Component Value Date INR 1.0 10/03/2022 PROTIME 11.0 10/03/2022 No results found for: VLDL PHYSICAL EXAM: Vitals: 10/04/22 1438 BP: 88/59 Pulse: 81 Resp: Temp: 37 C (98.6 F) SpO2: 97% Physical Exam Vitals reviewed. HENT: Head: Normocephalic and atraumatic. Eyes: Extraocular Movements: Extraocular movements intact. Neck: Vascular: No carotid bruit. Cardiovascular: Rate and Rhythm: Normal rate and regular rhythm. Pulses: Carotid pulses are 2+ on the right side and 2+ on the left side. Radial pulses are 2+ on the right side and 2+ on the left side. Femoral pulses are 2+ on the right side and 2+ on the left side. Dorsalis pedis pulses are detected w/ Doppler on the right side and detected w/ Doppler on the leftside. Posterior tibial pulses are detected w/ Doppler on the right side and detected w/ Doppler on the left side. Heart sounds: Normal heart sounds. Pulmonary: Effort: Pulmonary effort is normal. Comments: On RA Abdominal: General: Abdomen is flat. Bowel sounds are normal. There is no abdominal bruit. Palpations: Abdomen is soft. There is no pulsatile mass. Tenderness: There is no abdominal tenderness. Musculoskeletal: Cervical back: Neck supple. Right lower leg: No edema. Left lower leg: No edema. Right foot: Normal range of motion. Left foot: Normal range of motion. Comments: LLE hip ttp. Feet: Right foot: Skin integrity: Skin integrity normal. No ulcer, blister or skin breakdown. Left foot: Skin integrity: Skin integrity normal. No ulcer, blister or skin breakdown. Skin: General: Skin is warm and dry. Neurological: General: No focal deficit present. Mental Status: She is alert and oriented to person, place, and time. GCS: GCS eye subscore is 4. GCS verbal subscore is 5. GCS motor subscore is 6. Sensory: Sensation is intact. Motor: Motor function is intact. Psychiatric: Mood and Affect: Mood normal. Behavior: Behavior normal. Thought Content: Thought content normal. Judgment: Judgment normal. LABS: Lab Results Component Value Date WBC 12.0 (H) 10/04/2022 HGB 12.2 10/04/2022 HCT 37.2 10/04/2022 PLT 392 10/04/2022 PROTIME 11.0 10/03/2022 INR 1.0 10/03/2022 K 4.0 10/04/2022 BUN 28 (H) 10/04/2022 CREATININE 0.69 10/04/2022 VASCULAR TESTING: CTA pelvis 10/03/22 EXAMINATION: CT angiogram of the pelvis CLINICAL INDICATION: Hardware failure, surgical planning TECHNIQUE: Contiguous axial CT images were performed through the pelvis at 1 mm slice thickness with coronal and sagittal reconstructions. Three dimensional volume rendered and maximum intensity projection reconstruction was performed concurrently with independent workstation software by the radiologist to better visualize the vascular structures in various orientations. Dose reduction was employed with automated exposure control. COMPARISON: CT from earlier on the same day FINDINGS: The visualized abdominal aorta is normal in caliber with atherosclerotic calcifications in the aorta and its main branches. The bilateral common iliac artery, internal iliac arteries, external iliac arteries, common femoral arteries and visualized portions of the bilateral femoral and bilateral deep femoral arteries are patent. The lag screw of the left hip hardware comes in close proximity to the left external iliac artery, passing just anterior to it. No aneurysm or arterial occlusion. Visualized bowel is normal in caliber. No pelvic lymphadenopathy. No pelvic fluid collection. Fluid density lesions are present in both kidneys likely representing cysts but not entirely included in the [id number]. These were present on the CT from 12/21/2015, and do not require imaging follow-up. Redemonstration of a prior left femoral neck fracture with postsurgical changes and hardware malalignment, not changed since the prior CT. Now visualized are remote, healed right inferior and right superior pubic rami fractures. There are also compression deformities involving the L4 and L5 vertebral bodies. Sclerosis is present in the L4 vertebral body. Vertebroplasty changes are seen in the L5 v ertebral body. There is diffuse osteopenia IMPRESSION: 1. Left femoral neck fracture with postsurgical changes and hardware malalignment. The malpositioned lag screw comes in close proximity to the left external iliac artery. 2. Compression deformities of L4 and L5. Sclerosis in L4 is nonspecific but a marrow replacing lesion cannot be entirely excluded. . Associated attestation - Leslie Pacheco MD - 10/04/2022 5:20 PM EDT The patient has been discussed with Cece Kramer PA-C. CT scan reviewed. There does not appear to be involvement of the left external iliac artery with the screw however given its close proximity, vascular surgery is available for repair if needed during removal of the screw. To ensure all needed supplies for repair are available, transfer to [facility] is needed. Transfer has been initiated by the primary service. * Raman Carvalho MD - 10/04/2022 12:30 PM EDTAssociated Order(s): IP CONSULT TO GENERAL SURGERY Images from the original note were not included. Department of Surgery [facility] Raman Carvalho MD, MPH Consult Note PATIENT NAME: Donna Marsh : 1955 ATTENDING PHYSICIAN: Vineet Mckeon MD;Cynthia* ADMIT DATE: 10/03/2022 TODAY'S DATE: 10/04/2022 CHIEF COMPLAINT: Chief Complaint Patient presents with Hip Pain Pt presents to ED via EMS with c/o L hip pain. States that she had a surgery done on 08/06 to have arod placed. Reports that she has been in rehab since then. Had a follow up appt today with her orthopedic doctor today and told her to come straight here for emergent surgery because the jules didn't hold. Reason for Consult: Possible RP Approach for Hardware Removal HISTORY OF PRESENT ILLNESS: Donna Marsh is a 66 y.o. female with significant past medical history of diabetes, bipolar disorder, HTN, HPL, neuropathy who presents with left hip hardware malposition. Patient was seen in the outpatient setting yesterday with Orthopedic Surgery as a referral from [facility]. She recently fell this past July and was cared for in [place]. She underwent a surgical intervention to address a left hip fx - underwent short cephalomedullary nail 08/06/22. She had a bernie post-operative course with severe delirium, workup for stroke, and challenges with recovery. She required placed into SNF. After her surgery, she did have CT imaging which apparently demonstrated some concern for lyticlesions. She followed up with oncology for this and they had planned a bone biopsy CT-g'd. She saw her orthopedic surgeon in the interim who noted loss of fixation of her cephalomedullary nail with migration, provoking consult to [facility] specialists. After imaging was obtained in the office yesterday, she was sent to [place] [facility] for further evaluation, imaging, and treatment. CT pelvis and further contrasted imaging demonstrated migration of that lag screw proximally into the retroperitoneum, in very close proximity to the left external iliac artery. Orthopedic surgery plans to remove the hardware and do a full hip replacement; however, in order for manage operative planning safely, general surgery has been asked to evaluate to consider RP exposure. On exam, patient is pleasant and cooperative. She complains of ongoing left hip pain but has no other complaints. She states she also developed pneumonia during her recent hospitalization in July but has no current URI or chest symptoms. No change in bowel or bladder habits. Prior surgeries notable for ventral hernia repair as well as what she describes as right sided oophorectomy. Hysterectomy also listed. No anticoagulants or steroids. Past Medical History: Diagnosis Date Bipolar 1 disorder (HCC) Diabetes mellitus (HCC) Hyperlipidemia Hypertension Neuropathy Past Surgical History: Procedure Laterality Date CARPAL TUNNEL RELEASE HYSTERECTOMY TONSILLECTOMY (HISTORICAL) Medications Prior to Admission: Current Facility-Administered Medications: acetaminophen (Tylenol) tablet 650 mg, 650 mg, Oral, q6h PRN, 650 mg at 10/04/22 1210 OR acetaminophen (Tylenol) suppository 650 mg, 650 mg, Rectal, q6h PRN, Kofi Jolley MD atorvastatin (Lipitor) tablet 20 mg, 20 mg, Oral, Daily, Petra Rivers MD, 20 mg at 10/04/22 1210 busPIRone (Buspar) tablet 15 mg, 15 mg, Oral, BID, Petra Rivers MD, 15 mg at 10/04/22 1210 carvedilol (Coreg) tablet 3.125 mg, 3.125 mg, Oral, BID WC, Petra Rivers MD, 3.125 mg at 10/04/22 1210 dextrose 5 % infusion, 100 mL/hr, IntraVENous, PRN, Kofi Jolley MD dextrose 50 % solution 12.5 g, 12.5 g, IntraVENous, PRN, Kofi Jolley MD FLUoxetine (PROzac) capsule 20 mg, 20 mg, Oral, Daily, Petra Rivers MD, 20 mg at 10/04/22 1210 glucagon (human recombinant) injection 1 mg, 1 mg, IntraMUSCular, PRN, Kofi Jolley MD glucose oral gel 15 g, 15 g, Oral, PRN, Kofi Jolley MD Insulin Lispro (Humalog) injection 0-12 Units, 0-12 Units, SubCUTAneous, q6h AND Insulin Lispro(Humalog) injection 0-12 Units, 0-12 Units, SubCUTAneous, Nightly, Petra Rivers MD lisinopril tablet 20 mg, 20 mg, Oral, Daily, Petra Rivers MD, 20 mg at 10/04/22 1210 morphine injection 2 mg, 2 mg, IntraVENous, q4h PRN, Kofi Jolley MD, 2 mg at 10/04/22 1210 ondansetron ODT (Zofran-ODT) disintegrating tablet 4 mg, 4 mg, Oral, q8h PRN OR ondansetron (Zofran) injection 4 mg, 4 mg, IntraVENous, q6h PRN, Kofi Jolley MD, 4 mg at 10/04/22 1210 [START ON 10/05/2022] pantoprazole (ProtoNix) EC tablet 40 mg, 40 mg, Oral, qAM AC, Petra Rivers MD polyethylene glycol (PEG) 3350 (Miralax) packet 17 g, 17 g, Oral, Daily PRN, Kofi Jolley MD Current Outpatient Medications: acetaminophen (Tylenol Extra Strength) 500 MG tablet, Take by mouth., Disp: , Rfl: alendronate (Fosamax) 70 MG tablet, , Disp: , Rfl: atorvastatin (Lipitor) 20 MG tablet, Take 20 mg by mouth., Disp: , Rfl: bisacodyl (Dulcolax) 10 MG suppository, Insert into the rectum., Disp: , Rfl: busPIRone (Buspar) 15 MG tablet, , Disp: , Rfl: carvedilol (Coreg) 3.125 MG tablet, Take by mouth., Disp: , Rfl: celecoxib (CeleBREX) 200 MG capsule, Take 200 mg by mouth., Disp: , Rfl: ergocalciferol (Vitamin D-2) 1.25 MG (83939 UT) capsule, Take by mouth., Disp: , Rfl: fexofenadine (Roc) 180 MG tablet, Take by mouth., Disp: , Rfl: FLUoxetine (PROzac) 20 MG capsule, Take 20 mg by mouth in the morning., Disp: , Rfl: glipiZIDE (Glucotrol) 10 MG tablet, Take by mouth., Disp: , Rfl: lisinopril 20 MG tablet, Take by mouth., Disp: , Rfl: omeprazole (PriLOSEC) [address] capsule, Take by mouth., Disp: , Rfl: oxybutynin XL (Ditropan-XL) 10 MG 24 hr tablet, , Disp: , Rfl: oxyCODONE (Roxicodone) 5 MG immediate release tablet, Take 5 mg by mouth., Disp: , Rfl: sodium phosphate (Fleets) 7-19 GM/118ML enema enema, Insert into the rectum., Disp: , Rfl: traMADol (Ultram) 50 MG tablet, Take by mouth., Disp: , Rfl: Allergies: Codeine, Fentanyl, Morphine, and Nsaids Social History Socioeconomic History Marital status: Tobacco Use Smoking status: Never Smokeless tobacco: Never Substance and Sexual Activity Alcohol use: No Drug use: No No family history on file. REVIEW OF SYSTEMS: Review of Systems Constitutional: Negative for chills, fever and unexpected weight change. HENT: Negative for drooling, facial swelling, hearing loss, nosebleeds, rhinorrhea, sneezing and trouble swallowing. Respiratory: Negative for apnea, cough, chest tightness, shortness of breath, wheezing and stridor. Cardiovascular: Negative for chest pain and leg swelling. Gastrointestinal: Negative for abdominal distention, abdominal pain, constipation, diarrhea, nauseaand vomiting. Endocrine: Negative. Genitourinary: Negative for decreased urine volume, difficulty urinating, dysuria, flank pain and urgency. Musculoskeletal: Positive for arthralgias (L hip), gait problem (2/2 L hip) and myalgias. Negative for joint swelling. Skin: Negative for color change, pallor, rash and wound. Allergic/Immunologic: Negative. Neurological: Positive for weakness. Negative for dizziness, speech difficulty, light-headedness and headaches. Hematological: Does not bruise/bleed easily. Psychiatric/Behavioral: Negative for agitation, behavioral problems, confusion and decreased concentration. The patient is not nervous/anxious. PHYSICAL EXAM: Vitals: 10/04/22 1200 BP: 116/62 Pulse: 93 Resp: 16 Temp: SpO2: 93% No intake/output data recorded. Physical Exam Constitutional: General: She is not in acute distress. Appearance: She is ill-appearing (chronically). She is not toxic-appearing or diaphoretic. Comments: Appears much older than stated age HENT: Head: Normocephalic and atraumatic. Right Ear: External ear normal. Left Ear: External ear normal. Nose: Nose normal. No rhinorrhea. Mouth/Throat: Mouth: Mucous membranes are moist. Eyes: General: No scleral icterus. Right eye: No discharge. Left eye: No discharge. Extraocular Movements: Extraocular movements intact. Conjunctiva/sclera: Conjunctivae normal. Cardiovascular: Rate and Rhythm: Normal rate and regular rhythm. Pulses: Normal pulses. Pulmonary: Effort: Pulmonary effort is normal. No respiratory distress. Breath sounds: No wheezing. Abdominal: General: There is distension (2/2 habitus alone - significant abdominal subcutaneous tissue. Well healed prior midline ex-lap incision). Palpations: There is no mass. Tenderness: There is no abdominal tenderness. There is no guarding or rebound. Hernia: No hernia is present. Musculoskeletal: General: Tenderness (L hip ttp) present. No swelling, deformity or signs of injury. Cervical back: Normal range of motion. No rigidity. Skin: General: Skin is warm and dry. Neurological: General: No focal deficit present. Mental Status: She is alert. Cranial Nerves: No cranial nerve deficit (No gross abnormality). Psychiatric: Mood and Affect: Mood normal. Behavior: Behavior normal. Thought Content: Thought content normal. DATA: CBC: Lab Results Component Value Date WBC 12.0 (H) 10/04/2022 RBC 4.10 10/04/2022 HGB 12.2 10/04/2022 HCT 37.2 10/04/2022 MCV 90.7 10/04/2022 MCH 29.9 10/04/2022 MCHC 32.9 10/04/2022 RDW 14.6 (H) 10/04/2022 PLT 392 10/04/2022 MPV 8.2 10/04/2022 BMP: Lab Results Component Value Date NA 137 10/04/2022 K 4.0 10/04/2022 CL 104 10/04/2022 CO2 21 (L) 10/04/2022 BUN 28 (H) 10/04/2022 CREATININE 0.69 10/04/2022 CALCIUM 9.2 10/04/2022 GLUCOSE 88 10/04/2022 Hepatic Function Panel: Lab Results Component Value Date ALKPHOS 134 (H) 10/04/2022 ALT 48 (H) 10/04/2022 AST 59 (H) 10/04/2022 PROT 7.3 10/04/2022 BILITOT 0.4 10/04/2022 PT/INR: Lab Results Component Value Date PROTIME 11.0 10/03/2022 INR 1.0 10/03/2022 Troponin: No results found for: TROPONINI LIPASE: No results found for: LIPASE IMAGING: All relevant imaging reviewed by surgery team CTA pelvis angio w and wo IV contrast Result Date: 10/03/2022 Patient Name: [facility]SH [facility] 1955 [id number] Exam Date/Time: 10/03/2022 20:26 Procedure: CT PELVIS ANGIO W AND WO IV CONTRAST Ordering Provider: [facility] Reason For Exam: hardware failure, surgical planning EXAMINATION: CT angiogram of the pelvis CLINICAL INDICATION: Hardware failure, surgical planning TECHNIQUE: Contiguous axial CT images were performed through the pelvis at 1 mm slice thickness with coronal and sagittal reconstructions. Three dimensional volume rendered and maximum intensity projection reconstruction was performed concurrently with independent workstation software by the radiologist to better visualize the vascular structures in various orientations. Dose reduction was employed with automated exposure control. COMPARISON: CT from earlier on the same day FINDINGS: The visualized abdominal aorta is normal in caliber with atherosclerotic calcifications in the aorta and its main branches. The bilateral common iliac artery, internal iliac arteries, external iliac arteries, common femoral arteries and visualizedportions of the bilateral femoral and bilateral deep femoral arteries are patent. The lag screw of the left hip hardware comes in close proximity to the left external iliac artery, passing just anterior to it. No aneurysm or arterial occlusion. Visualized bowel is normal in caliber. No pelvic lymphadenopathy. No pelvic fluid collection. Fluid density lesions are present in both kidneys likely representing cysts but not entirely included in the [id number]. These were present on the CT from 12/21/2015, and do not require imaging follow-up. Redemonstration of a prior left femoral neck fracture with postsurgical changes and hardware malalignment, not changed since the prior CT. Now visualizedare remote, healed right inferior and right superior pubic rami fractures. There are also compression deformities involving the L4 and L5 vertebral bodies. Sclerosis is present in the L4 vertebral body. Vertebroplasty changes are seen in the L5 vertebral body. There is diffuse osteopenia 1. Left femoral neck fracture with postsurgical changes and hardware malalignment. The malpositioned lag screw comes in close proximity to the left external iliac artery. 2. Compression deformities of L4 and L5. Sclerosis in L4 is nonspecific but a marrow replacing lesion cannot be entirely excluded. Report Dictated on Electronically Signed By: Dereck Gramajo MD Electronically Signed Date/Time: 10/03/2022 8:[address] hip left wo IV contrast Result Date: 10/03/2022 Patient Name: DONNA MARSH : 1955 Exam Date/Time: 10/03/2022 18:51 Procedure: CT HIP LEFT WO IV CONTRAST Ordering Provider: QUINTANA RACHEL Reason For Exam: Hip surgical planning EXAM TYPE: CT HIP LEFT WO IV CONTRAST EXAM DATE AND TIME: 10/03/2022 6:51 PM EDT INDICATION: 66 years Female with left hip pain, surgical planning COMPARISON: 10/03/2022 TECHNIQUE: Axial CT imaging of the left hip was obtained without contrast, followed by coronal and sagittal reconstructions. 3-D reconstructions were generated for surgical planning. Dose reduction was employed with automated exposure control. FINDINGS: There is a comminuted and foreshortened intertrochanteric left femoral neck fracture with some callus formation present. Postsurgical changes are seen of prior ORIF with a metallic jules and distal interlocking screw in the femur which extends superiorly to terminate in the soft tissues lateral to the left ilium. There has been migrati on of the lag screw which does not directly articulate with the femoral nail component, extending from the femoral neck through the acetabulum and terminating in the left iliopsoas muscle There is diffuse osteopenia. No soft tissue swelling or fluid collection. Vascular calcifications are present. Impression: Comminuted left femoral neck fracture, likely subacute. Postsurgical changes are present, with malpositioning of the surgical hardware as detailed above. Diffuse osteopenia. Report Dictated on Electronically Signed By: Dereck Gramajo MD Electronically SignedDate/Time: 10/03/2022 7:09 PM EDT ASSESSMENT AND PLAN: This is a 66 y.o. female who suffered fall in July 2022 with left hip fx, s/p repair with cephalomedullary nail that since failed with migration of lag screw into retroperitoneum, directly overlying left iliac artery. -Multidisciplinary discussions ongoing regarding safest avenue for operative exploration, removal, and repair. I have discussed with vascular surgery as well as orthopedic surgery directly. Details regarding safest plan still pending - will update accordingly pending further discussion. -Regardless, [facility] will be on standby if operative intervention pursued here I.e. extraperitoneal L RP exposure if needed. -Medical management per primary team -Surgery will follow Disclaimers: INFORMED CONSENT: The nature and purpose of the proposed treatment and/or procedure have been discussed. The risks and benefits of the proposed treatment or procedures have been reviewed. Alternatives have been reviewed in addition to the risks and benefits of not receiving treatments or undergoingprocedures. Pursuant to this discussion, the patient agrees to undergo the proposed treatment or procedure. Captured images seen in this note are not a substitute for a comprehensive interpretation of the entire data set as reflected by the interpreting physician with regard to radiology, echocardiography,and other diagnostic images. This note may have been dictated using [employer] Edition 2.6 and/or [employer] Voice Recognition Feature. The document was proofread; however, unrecognized voice recognition electric meter reader errors may be present. Raman Carvalho MD 10/04/2022 12:30 PM * Lydia Harris MD - 10/03/2022 5:57 PM EDT Ortho Consult Patient: Donna Marsh Date of : 1955 Acct: [id number] PCP: CICI CALDERON Date of Admission: 10/03/2022 Date of Service: Pt seen/examined on 10/03/2022 Chief Complaint: Left hip pain History Of Present Illness: 66 y.o. female with a history significant for A-fib, bipolar, dementia,hypertension, coronary artery disease, type 2 diabetes presenting as a referral from [facility]. Back in late July, Donna suffered a ground-level fall resulting in a peritrochanteric left hipfracture that was treated with a short cephalomedullary nail with Dr. Dereck Ramirez of [facility] on 08/06/2022. Per all reports, surgery was routine and satisfactory reduction was achieved. In the immediate postoperative period, patient suffered from severe delirium and underwent extensive work-up while in the hospital. She was made weightbearing as tolerated postoperatively but was on ly able to take a few steps and was otherwise bedbound. She was worked up for stroke (which was negative) as well as infection. She states that she was diagnosed and treated for a pneumonia during that stay. She underwent a CT scan of her left lower extremity on postop day 1 to evaluate for hematoma collection due to postoperative anemia. At that time her hardware was intact but was apparent thatthe lag screw was placed in an anterior/superior position in the femoral head. The scan revealed noconcerning lesions in her lumbar spine and pelvis that were concerning for malignant process. She was ultimately discharged to a [facility] and ultimately followed up with Dr. Regina Oden (oncology)who ordered a CT-guided biopsy of her most accessible lesion which was in the right iliac bone. Sometime in the interim it was discovered that she had complete loss of fixation of her cephalomedullary nail with proximal migration of the lag screw. She had follow-up with her orthopedic surgeon who recommended waiting until her work-up was complete before pursuing revision treatment. She has no known personal history of cancer has not been compliant with recommended screenings. Patient be noted that thus far all of her cancer work-up has been essentially negative. She reports that she has had pain in the left hip consistently since surgery. She denies and drainage from her incisions, fevers, chills, etc. She has not been on any antibiotics for the hip. She didhave pneumonia in the postop period but has not had any other infections/abscesses that she is aware of. Current orthopedic implants Per chart review: Aracely gamma 3 cephalomedullary nail, 130 degree, 11mm x 180 mm, 10.5 x 95 mm lag screw, 5 x 40 mm distal interlocking screw Past Medical History: Past Medical History: Diagnosis Date Bipolar 1 disorder (HCC) Diabetes mellitus (HCC) Hyperlipidemia Hypertension Neuropathy Past Surgical History: Past Surgical History: Procedure Laterality Date CARPAL TUNNEL RELEASE HYSTERECTOMY TONSILLECTOMY (HISTORICAL) Home Medications: Prior to Admission medications Medication Sig Start Date End Date Taking? Authorizing Provider acetaminophen (Tylenol Extra Strength) 500 MG tablet Take by mouth. Historical Provider, alendronate (Fosamax) 70 MG tablet 09/13/22 Historical Provider, atorvastatin (Lipitor) 20 MG tablet Take 20 mg by mouth. 09/15/22 Historical Provider, bisacodyl (Dulcolax) 10 MG suppository Insert into the rectum. Historical Provider, busPIRone (Buspar) 15 MG tablet 09/13/22 Historical Provider, carvedilol (Coreg) 3.125 MG tablet Take by mouth. Historical Provider, celecoxib (CeleBREX) 200 MG capsule Take 200 mg by mouth. 08/16/22 Historical Provider, ergocalciferol (Vitamin D-2) 1.25 MG (07175 UT) capsule Take by mouth. Historical Provider, fexofenadine (Roc) 180 MG tablet Take by mouth. Historical Provider, FLUoxetine (PROzac) 20 MG capsule Take 20 mg by mouth in the morning. Historical Provider, glipiZIDE (Glucotrol) 10 MG tablet Take by mouth. Historical Provider, lisinopril 20 MG tablet Take by mouth. Historical Provider, omeprazole (PriLOSEC) [address] capsule Take by mouth. Historical Provider, oxybutynin XL (Ditropan-XL) 10 MG 24 hr tablet 09/13/22 Historical Provider, oxyCODONE (Roxicodone) 5 MG immediate release tablet Take 5 mg by mouth. Historical Provider, sodium phosphate (Fleets) 7-19 GM/118ML enema enema Insert into the rectum. Historical Provider, traMADol (Ultram) 50 MG tablet Take by mouth. Historical Provider, Current Hospital Medications: No current facility-administered medications for this encounter. Current Outpatient Medications: acetaminophen (Tylenol Extra Strength) 500 MG tablet, Take by mouth., Disp: , Rfl: alendronate (Fosamax) 70 MG tablet, , Disp: , Rfl: atorvastatin (Lipitor) 20 MG tablet, Take 20 mg by mouth., Disp: , Rfl: bisacodyl (Dulcolax) 10 MG suppository, Insert into the rectum., Disp: , Rfl: busPIRone (Buspar) 15 MG tablet, , Disp: , Rfl: carvedilol (Coreg) 3.125 MG tablet, Take by mouth., Disp: , Rfl: celecoxib (CeleBREX) 200 MG capsule, Take 200 mg by mouth., Disp: , Rfl: ergocalciferol (Vitamin D-2) 1.25 MG (40918 UT) capsule, Take by mouth., Disp: , Rfl: fexofenadine (Roc) 180 MG tablet, Take by mouth., Disp: , Rfl: FLUoxetine (PROzac) 20 MG capsule, Take 20 mg by mouth in the morning., Disp: , Rfl: glipiZIDE (Glucotrol) 10 MG tablet, Take by mouth., Disp: , Rfl: lisinopril 20 MG tablet, Take by mouth., Disp: , Rfl: omeprazole (PriLOSEC) [address] capsule, Take by mouth., Disp: , Rfl: oxybutynin XL (Ditropan-XL) 10 MG 24 hr tablet, , Disp: , Rfl: oxyCODONE (Roxicodone) 5 MG immediate release tablet, Take 5 mg by mouth., Disp: , Rfl: sodium phosphate (Fleets) 7-19 GM/118ML enema enema, Insert into the rectum., Disp: , Rfl: traMADol (Ultram) 50 MG tablet, Take by mouth., Disp: , Rfl: Allergies: Codeine, Fentanyl, Morphine, and Nsaids Social History: Social History Socioeconomic History Marital status: Spouse name: Not on file Number of children: Not on file Years of education: Not on file Highest education level: Not on file Occupational History Not on file Tobacco Use Smoking status: Never Smokeless tobacco: Never Substance and Sexual Activity Alcohol use: No Drug use: No Sexual activity: Not on file Other Topics Concern Not on file Social History Narrative Not on file Social Determinants of Health Financial Resource Strain: Not on file Food Insecurity: Not on file Transportation Needs: Not on file Physical Activity: Not on file Stress: Not on file Social Connections: Not on file Intimate Partner Violence: Not on file Housing Stability: Not on file Family History: No family history on file. Further Family History is noncontributory to this injury. REVIEW OF SYSTEMS: Review of Systems - General ROS: negative for - chills, fatigue, fever, malaise or night sweats Psychological ROS: negative Ophthalmic ROS: negative ENT ROS: negative for - headaches or sore throat Hematological and Lymphatic ROS: negative for - bleeding problems or blood clots Respiratory ROS: no cough, shortness of breath, or wheezing Cardiovascular ROS: no chest pain or dyspnea on exertion Gastrointestinal ROS: negative Musculoskeletal ROS: See HPI Neurological ROS: negative for - bowel and bladder control changes, gait disturbance or numbness/tingling All other systems reviewed and are negative PHYSICAL EXAM: BP 126/60 (BP Location: Left arm, Patient Position: Lying) Pulse 91 Resp 18 SpO2 100% GENERAL APPEARANCE: Awake and oriented x3. No acute distress, except appropriate to injury. MOOD AND AFFECT: Calm appropriate to situation GAIT AND STATION: Patient is in bed and unable to ambulate secondary to known injury. REFLEXES: No clonus or Babinski. COORDINATION and BALANCE: Patient is grossly coordinated unable to ambulate secondary to known injury. Lymphadenopathy: none on examination of the affected extremity(s) Right Upper Extremity: -No obvious pain or deformity to inspection with normal joint range of motion, stability, and muscle strength except noted below -No TTP over clavicle, shoulder, humerus, elbow, forearm, wrist, hand, or fingers -TTP: nontender throughout extremity -Radial pulse palpable -SILT in radial/median/ ulnar nerve distributions -Motor + AIN/PIN/ulnar nerve functions -No Lymphedema -Skin intact except where noted below -Painless pROM at shoulder/elbow/wrist Left Upper Extremity: -No obvious pain or deformity to inspection with normal joint range of motion, stability, and muscle strength except noted below -No TTP over clavicle, shoulder, humerus, elbow, forearm, wrist, hand, or fingers -TTP: nontender throughout extremity -Radial pulse palpable -SILT in radial/median/ ulnar nerve distributions -Motor + AIN/PIN/ulnar nerve functions -No Lymphedema -Skin intact except where noted below -Painless pROM at shoulder/elbow/wrist Left Lower Extremity: -No obvious pain or deformity to inspection with normal joint range of motion, stability, and muscle strength except noted below. Extremity shortened and externally rotated. Lateral hip incisions well-healed without evidence of infection -No TTP over knee, tibia, lateral mal, medial mal, calc, midfoot, forefoot -TTP: hip -Pulse: DP Palpable, PT Palpable -SILT in the superficial peroneal, deep peroneal, tibial, sural, saphenous nerve distributions -Motor function of tibialis anterior, extensor hallucis longus, and gactrocsoleus complex intact -No Lymphedema -Skin intact except where noted below -Painless pROM at knee/ankle -+ logroll Right Lower Extremity: -No obvious pain or deformity to inspection with normal joint range of motion, stability, and muscle strength except noted below -No TTP over pelvis, hip, thigh, knee, tibia, lateral mal, medial mal, calc, midfoot, forefoot -TTP: Nontender throughout extremity -Pulse: DP Palpable, PT Palpable -SILT in the superficial peroneal, deep peroneal, tibial, sural, saphenous nerve distributions -Motor function of quad, tibialis anterior, extensor hallucis longus, and gactrocsoleus complex intact -No Lymphedema -Skin intact except where noted below -Painless pROM at hip/knee/ankle Labs: CBC: No results found for: WBC, RBC BMP:No results found for: GLUCOSE, SODIUM, POTASSIUM, CHLORIDE, CO2, BUN, CREATININE, CALCIUM PT/INR: No results found for: PT, INR, APTT Type and Screen: No results found for: RH, LABANTI CRP: No results found for: CRP ESR: No results found for: SEDRATE HgBA1c: No components found for: LABA1C The above labs were reviewed by me. Radiology: The below images were independently reviewed and interpreted XR: Left hip (10/03/2022): Patient is status post short cephalomedullary nailing of the left peritrochanteric hip fracture with hardware failure, specifically the lag screw is migrated proximally and medially out of the nail and is no longer contacting the intramedullary nail portion of the implant. Thedistal interlocking screw appears to be intact. She has collapse of her fracture site with some possible interval callus formation, and extreme varus. CT: CT abdomen/pelvis (outside hospital, 08/14/2022): Status post left hip cephalomedullary nail, hardware intact but noted possible superior cut out of the lag screw. Severe osteoporosis throughout the pelvis and lumbosacral spine. Numerous sclerotic/lytic lesions throughout the bony pelvis and lumbar spine with numerous compression fractures in various stages of healing. 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 The proximal lag screw has migrated proximally into the pelvis. The proximal tip of the screw lies just anterior to the left external illiac artery. Radiology report reviewed. ASSESSMENT: 66 y.o. female status post left cephalomedullary nail for peritrochanteric hip fracture on 08/06/2022 with interval complete hardware failure and fracture collapse. PLAN: -D/w Dr. Kaufman -Plan for OR for 10/05 for removal of hardware and revision COSTA -Given close proximity of migrated screw to left external illiac artery we will consult general surgery for possible operative assistance. -NPO at Midnight 10/05 -Clear per medicine pending -Consent pending -Pre-op workup in process -Ice -APS consulted -Bedrest -NWB LLE -Admit to medicine -Pain control & medical management per primary -Please hold DVT prophylaxis in anticipation of OR -Please comment on clearance in case of OR, page ortho applications intern with clearance status Lydia Harris MD PGY3 Orthopaedic Surgery 10/04/2022 9:17 AM Associated attestation - Berry Mares MD - 10/10/2022 3:14 PM EDT Patient seen and examined independently by me. Above discussed and I agree with resident note except where indicated in the EMR revision history. Also see my additional comments and changes indicatedby discrete font, text color, italics, and/or initials. Labs, cultures, and radiographs where available were reviewed. Changes were made in the orders as necessary. I discussed patient concerns with Donna'mikey [place] and instructions were given. Please see our orders for the updated patient care plan. Risks of surgery in general were reviewed including, but not limited to, infection, need for additional procedures, leg length discrepancy, dislocation, loosening of prosthesis, damage to normal structures, as well as medical complications such as MN, stroke, PE, DVT, and even . Discussed in this case in particular the elevated risk for vascular injury. Vascular team will be assisting duringthis case. Patient was given opportunity to ask questions and consider her options. Family was available for discussion as well. She ultimately elected to proceed with surgery. No guarantees were stated or implied. documented in this [facility]08-24-2023 [facility] 10-05-2022 NoteReferral placed to [facility] [place] via [facility] per [facility] request. Await review and response regarding ability to accept. TCC notified. [facility]08-24-2023 History and physical note* Senia Griffith MD - 10/05/2022 9:48 AM EDT Vascular Surgery History and physical/Consultation Note Reason for Consult/Admission: admitted for L hip reoperation due to malpositioned hardware, s/p short cephalomedullary nail placement on 08/06. HISTORY OF PRESENT ILLNESS: Donna Marsh is a 66 y.o. female who is admitted to the hospital for hip hardware malposition. Patient underwent short cephalomedually nail placement on 08/06. Patient admitted from orthopedic surgery outpatient office to [place]. After imaging was obtained in the office yesterday, she was sent to [place] ED for further evaluation, imaging, and treatment. CT pelvis and further contrasted imaging demonstrated migration of that lag screw proximally into the retroperitoneum, in very close proximity to the left external iliac artery. Vascular surgery contacted and will be on standby for this procedure. IMPRESSION: This is a 66 y.o. female who suffered left hip fx, s/p repair with cephalomedullary nail that since failed with migration of lag screw into retroperitoneum, directly overlying left iliac artery, will undergo reoperation with Dr. Mares RECOMMENDATIONS: -vascular will be available during procedure -will discuss OR timing -management per primary -discussed with Dr. Pacheco Past Medical History: Diagnosis Date Bipolar 1 disorder (HCC) Diabetes mellitus (HCC) Hyperlipidemia Hypertension Neuropathy Past Surgical History: Procedure Laterality Date CARPAL TUNNEL RELEASE HYSTERECTOMY ORIF DISTAL RADIUS FRACTURE (HISTORICAL) Left 08/06/2022 TONSILLECTOMY (HISTORICAL) Current Medications: PRN medications: acetaminophen OR acetaminophen, dextrose, dextrose, glucagon (rDNA), glucose, morphine sulfate, ondansetron ODT OR ondansetron, polyethylene glycol (PEG) 3350 atorvastatin, 20 mg, Oral, Daily busPIRone, 15 mg, Oral, BID carvedilol, 3.125 mg, Oral, BID WC FLUoxetine, 20 mg, Oral, Daily insulin lispro, 0-12 Units, SubCUTAneous, q6h And insulin lispro, 0-12 Units, SubCUTAneous, Nightly lisinopril, 20 mg, Oral, Daily pantoprazole, 40 mg, Oral, qAM AC Allergies: Codeine, Fentanyl, Morphine, and Nsaids Social History Socioeconomic History Marital status: Spouse name: Not on file Number of children: Not on file Years of education: Not on file Highest education level: Not on file Occupational History Not on file Tobacco Use Smoking status: Former Packs/day: 1.00 Years: 15.00 Pack years: 15.00 Types: Cigarettes Quit date: 07/26/2022 Years since quittin.1 Smokeless tobacco: Never Substance and Sexual Activity Alcohol use: No Drug use: Yes Types: Marijuana Sexual activity: Not Currently Other Topics Concern Not on file Social History Narrative Not on file Social Determinants of Health Financial Resource Strain: Not on file Food Insecurity: Not on file Transportation Needs: Not on file Physical Activity: Not on file Stress: Not on file Social Connections: Not on file Intimate Partner Violence: Not At Risk (10/04/2022) Humiliation, Afraid, Rape, and Kick questionnaire Fear of Current or Ex-Partner: No Emotionally Abused: No Physically Abused: No Sexually Abused: No Housing Stability: Not on file No family history on file. REVIEW OF SYSTEMS: The chart was reviewed. Review of Systems Constitutional: Negative for activity change, appetite change, chills and diaphoresis. Cardiovascular: Negative for chest pain and leg swelling. Musculoskeletal: Negative for arthralgias and back pain. LABS: Results from last 7 days Lab Units 10/05/22 0210 10/04/22 0534 10/03/22 1826 WBC AUTO 10*3/uL 12.1* 12.0* 11.0* HEMOGLOBIN g/dL 12.0 12.2 11.9 HEMATOCRIT % 36.6 37.2 35.7 PLATELETS AUTO 10*3/uL 354 392 350 Results from last 7 days Lab Units 10/05/22 0210 10/04/22 0534 10/03/22 1907 10/03/22 1826 SODIUM mmol/L 138 137 -- 138 POTASSIUM mmol/L 5.1 4.0 4.7 6.0* CHLORIDE mmol/L 102 104 -- 104 CO2 mmol/L 27 21* -- 26 BUN mg/dL 27* 28* -- 36* CREATININE mg/dL 0.88 0.69 -- 0.84 GLUCOSE mg/dL 95 88 -- 143* CALCIUM mg/dL 9.2 9.2 -- 9.6 Results from last 7 days Lab Units 10/04/22 0534 ALK PHOS U/L 134* BILIRUBIN TOTAL mg/dL 0.4 PROTEIN TOTAL g/dL 7.3 ALT U/L 48* AST U/L 59* No results found for: LIPASE Results from last 7 days Lab Units 10/03/22 1826 INR 1.0 PHYSICAL EXAM: Vitals: 10/05/22921 BP: 94/57 Pulse: 83 Resp: 18 Temp: 36.8 C (98.3 F) SpO2: 94% Physical Exam Constitutional: Appearance: Normal appearance. Cardiovascular: Rate and Rhythm: Normal rate and regular rhythm. Pulses: Femoral pulses are 2+ on the right side and 2+ on the left side. Popliteal pulses are 2+ on the right side and 2+ on the left side. Dorsalis pedis pulses are 2+ on the right side and 2+ on the left side. Posterior tibial pulses are 2+ on the right side and 2+ on the left side. Pulmonary: Effort: Pulmonary effort is normal. Breath sounds: Normal breath sounds. Abdominal: General: Abdomen is flat. Palpations: Abdomen is soft. Neurological: Mental Status: She is alert. LABS: Lab Results Component Value Date WBC 12.1 (H) 10/05/2022 HGB 12.0 10/05/2022 HCT 36.6 10/05/2022 PLT 354 10/05/2022 PROTIME 11.0 10/03/2022 INR 1.0 10/03/2022 K 5.1 10/05/2022 BUN 27 (H) 10/05/2022 CREATININE 0.88 10/05/2022 CTA pelvis angio w and wo IV contrast Result Date: 10/03/2022 Patient Name: DONNA MARSH : 1955 Exam Date/Time: 10/03/2022 20:26 Procedure: CT PELVIS ANGIO W AND WO IV CONTRAST Ordering Provider: MCKEON RALEIGH Reason For Exam: hardware failure, surgical planning EXAMINATION: CT angiogram of the pelvis CLINICAL INDICATION: Hardware failure, surgical planning TECHNIQUE: Contiguous axial CT images were performed through the pelvis at 1 mm slice thickness with coronal and sagittal reconstructions. Three dimensional volume rendered and maximum intensity projection reconstruction was performed concurrently with independent workstation software by the radiologist to better visualize the vascular structures in various orientations. Dose reduction was employed with automated exposure control. COMPARISON: CT from earlier on the same day FINDINGS: The visualized abdominal aorta is normal in caliber with atherosclerotic calcifications in the aorta and its main branches. The bilateral common iliac artery, internal iliac arteries, external iliac arteries, common femoral arteries and visualizedportions of the bilateral femoral and bilateral deep femoral arteries are patent. The lag screw of the left hip hardware comes in close proximity to the left external iliac artery, passing just anterior to it. No aneurysm or arterial occlusion. Visualized bowel is normal in caliber. No pelvic lymphadenopathy. No pelvic fluid collection. Fluid density lesions are present in both kidneys likely representing cysts but not entirely included in the [id number]. These were present on the CT from 12/21/2015, and do not require imaging follow-up. Redemonstration of a prior left femoral neck fracture with postsurgical changes and hardware malalignment, not changed since the prior CT. Now visualizedare remote, healed right inferior and right superior pubic rami fractures. There are also compression deformities involving the L4 and L5 vertebral bodies. Sclerosis is present in the L4 vertebral body. Vertebroplasty changes are seen in the L5 vertebral body. There is diffuse osteopenia 1. Left femoral neck fracture with postsurgical changes and hardware malalignment. The malpositioned lag screw comes in close proximity to the left external iliac artery. 2. Compression deformities of L4 and L5. Sclerosis in L4 is nonspecific but a marrow replacing lesion cannot be entirely excluded. Report Dictated on Electronically Signed By: Dereck Gramajo MD Electronically Signed Date/Time: 10/03/2022 8:[address] hip left wo IV contrast Result Date: 10/03/2022 Patient Name: DONNA MARSH : 1955 Exam Date/Time: 10/03/2022 18:51 Procedure: CT HIP LEFT WO IV CONTRAST Ordering Provider: QUINTANA RACHEL Reason For Exam: Hip surgical planning EXAM TYPE: CT HIP LEFT WO IV CONTRAST EXAM DATE AND TIME: 10/03/2022 6:51 PM EDT INDICATION: 66 years Female with left hip pain, surgical planning COMPARISON: 10/03/2022 TECHNIQUE: Axial CT imaging of the left hip was obtained without contrast, followed by coronal and sagittal reconstructions. 3-D reconstructions were generated for surgical planning. Dose reduction was employed with automated exposure control. FINDINGS: There is a comminuted and foreshortened intertrochanteric left femoral neck fracture with some callus formation present. Postsurgical changes are seen of prior ORIF with a metallic jules and distal interlocking screw in the femur which extends superiorly to terminate in the soft tissues lateral to the left ilium. There has been migrati on of the lag screw which does not directly articulate with the femoral nail component, extending from the femoral neck through the acetabulum and terminating in the left iliopsoas muscle There is diffuse osteopenia. No soft tissue swelling or fluid collection. Vascular calcifications are present. Impression: Comminuted left femoral neck fracture, likely subacute. Postsurgical changes are present, with malpositioning of the surgical hardware as detailed above. Diffuse osteopenia. Report Dictated on Electronically Signed By: Dereck Gramajo MD Electronically SignedDate/Time: 10/03/2022 7:09 PM EDT Senia Griffith MD PGY1 Urology 10/05/2022 at 9:49 AM. Associated attestation - Leslie Pacheco MD - 10/06/2022 12:05 PM EDT I saw and evaluated the patient. I agree with the findings and plan of care as documented in the resident s note unless otherwise noted below. I discussed with the patient my involvement as vascular surgery. We are available on standby for removal of the screw should there be any vascular injury. On the CTA performed, there is not involvement of the artery as it is normal in caliber and there is a plane present between the screw and the artery. Currently removal is planned for SundayOctober 10. Please reach out once the time has beenconfirmed and we will ensure someone is available to assist. * Kofi Jolley MD - 10/03/2022 8:53 PM EDT Images from the original note were not included. Attending History and Physical Admit Date: 10/03/2022 PCP: CICI CALDERON CHIEF COMPLAINT: left hip pain Reason for Admission: possible hardware failure History Obtained From: patient/chart HISTORY OF PRESENT ILLNESS: Donna is a 66 y.o. female with past medical history below who presents with chief complaint listed above. She has had worsening left hip pain. She had ORIF in July and was in rehab. She recently had aCT guided biopsy of her iliac for mass. She was sent into the ED by Orthopedics for the pain and evaluation of potential HW failure. She denies chest pain, sob, abdominal pain, nausea, vomiting, diarr hea, constipation, fevers, or chills. Will admit for further evaluation and management. Seen and examined in the ED. D/w pt and RNLary, separately. Past Medical History: Past Medical History: Diagnosis Date Bipolar 1 disorder (HCC) Diabetes mellitus (HCC) Hyperlipidemia Hypertension Neuropathy Past Surgical History: Past Surgical History: Procedure Laterality Date CARPAL TUNNEL RELEASE HYSTERECTOMY TONSILLECTOMY (HISTORICAL) Social History: Social History Socioeconomic History Marital status: Spouse name: Not on file Number of children: Not on file Years of education: Not on file Highest education level: Not on file Occupational History Not on file Tobacco Use Smoking status: Never Smokeless tobacco: Never Substance and Sexual Activity Alcohol use: No Drug use: No Sexual activity: Not on file Other Topics Concern Not on file Social History Narrative Not on file Social Determinants of Health Financial Resource Strain: Not on file Food Insecurity: Not on file Transportation Needs: Not on file Physical Activity: Not on file Stress: Not on file Social Connections: Not on file Intimate Partner Violence: Not on file Housing Stability: Not on file Family History: No family history on file. Medications Prior to Admission: No current facility-administered medications on file prior to encounter. Current Outpatient Medications on File Prior to Encounter Medication Sig Dispense Refill acetaminophen (Tylenol Extra Strength) 500 MG tablet Take by mouth. alendronate (Fosamax) 70 MG tablet atorvastatin (Lipitor) 20 MG tablet Take 20 mg by mouth. bisacodyl (Dulcolax) 10 MG suppository Insert into the rectum. busPIRone (Buspar) 15 MG tablet carvedilol (Coreg) 3.125 MG tablet Take by mouth. celecoxib (CeleBREX) 200 MG capsule Take 200 mg by mouth. ergocalciferol (Vitamin D-2) 1.25 MG (49395 UT) capsule Take by mouth. fexofenadine (Roc) 180 MG tablet Take by mouth. FLUoxetine (PROzac) 20 MG capsule Take 20 mg by mouth in the morning. glipiZIDE (Glucotrol) 10 MG tablet Take by mouth. lisinopril 20 MG tablet Take by mouth. omeprazole (PriLOSEC) [address] capsule Take by mouth. oxybutynin XL (Ditropan-XL) 10 MG 24 hr tablet oxyCODONE (Roxicodone) 5 MG immediate release tablet Take 5 mg by mouth. sodium phosphate (Fleets) 7-19 GM/118ML enema enema Insert into the rectum. traMADol (Ultram) 50 MG tablet Take by mouth. Allergies: Allergies Allergen Reactions Codeine Other reaction(s): Intolerance, Itching Itching Fentanyl Other reaction(s): confusion Morphine Other Loss of Memory Nsaids Rash REVIEW OF SYSTEMS: As per HPI otherwise 10 system review is unremarkable. Vitals: BP (!) 140/61 (BP Location: Right arm, Patient Position: Lying) Pulse 83 Temp 36.9 C (98.4 F) (Oral) Resp 16 Ht 5' 4 (1.626 m) Wt 145 lb (65.8 kg) SpO2 95% BMI 24.89 kg/m BMI Classification: Normal Weight (BMI 18.5-24.9) Pulse Ox: SpO2 Av.5 % Min: 95 % Max: 100 % Supplemental O2: PHYSICAL EXAM: Physical Exam Vitals and nursing note reviewed. Constitutional: General: She is not in acute distress. HENT: Head: Normocephalic and atraumatic. Eyes: Extraocular Movements: Extraocular movements intact. Pupils: Pupils are equal, round, and reactive to light. Cardiovascular: Rate and Rhythm: Normal rate and regular rhythm. Pulmonary: Effort: Pulmonary effort is normal. Breath sounds: Normal breath sounds. Abdominal: General: Bowel sounds are normal. There is no distension. Palpations: Abdomen is soft. Tenderness: There is no abdominal tenderness. Musculoskeletal: General: Tenderness present. Normal range of motion. Cervical back: Normal range of motion and neck supple. Right lower leg: No edema. Left lower leg: No edema. Skin: General: Skin is warm. Neurological: General: No focal deficit present. Mental Status: She is alert and oriented to person, place, and time. Mental status is at baseline. Psychiatric: Mood and Affect: Mood normal. DATA: CBC: Recent Labs 10/03/22 1826 WBC 11.0* RBC 3.94 HGB 11.9 HCT 35.7 MCV 90.7 RDW 14.7* PLT 350 BMP: Recent Labs 10/03/22 1826 NA 138 K 6.0* CL 104 CO2 26 BUN 36* CREATININE 0.84 GLUCOSE 143* CALCIUM 9.6 ANIONGAP 8 LIVER PROFILE:No results for input(s): AST, ALT, BILITOT, ALKPHOS, PROT in the last 72 hours. No lab exists for component: LABALBU PT/INR: Recent Labs 10/03/22 1826 PROTIME 11.0 INR 1.0 CARDIAC ENZYMES: No results for input(s): TROPONINI in the last 72 hours. Procalcitonin: No results found for: PROCAL Urine Culture: No results found for this or any previous visit. COVID-19 PCR: No results for input(s): COVID19 in the last 72 hours. I reviewed: [x] laboratory results [x] radiographic results At the time of today's encounter. Pt was advised of the results. IMPRESSION: Left hip pain with hardware failure Hyperkalemia HTN DM2 Neuropathy Bipolar disorder Medical Decision Making: I discussed management with ED clinician and agree with need for hospitalization, pain control, bedrest, POCT, SSI, NPO for possible OR, Orthopedic Surgery evaluation, review home meds, repeat K and treat as needed, follow up labs, discharge planning, see admission orders. -Discussed with ED provider and agree with their plan for admission -PT/OT eval/increase activity -am labs, replace lytes prn -vitals per routine -home meds as ordered -DVT prophylaxis: [] Lovenox [] Heparin [x] SCDs [x] Encourage ambulation [] Already on Anticoagulation Anticipated Discharge - Date - 10/06-10/07 - Location - Skilled Facility vs home with home health care - Pending the following - clinical improvement, completion of work up, disposition finalization andwhen OK with Orthopedic Surgery Total time spent (which include face to face and non face to face encounters) : 59 minutes Toxic drug monitoring/narrow therapeutic index drug monitoring : # Drug name : # Route administered : # Method of monitoring : Extended Emergency Contact Information Primary Emergency Contact: Joo Bernstein Relation: None Code status: No Order -see below for additional orders, further recommendations to follow Orders Placed This Encounter Procedures CT hip left wo IV contrast CTA pelvis angio w and wo IV contrast Basic metabolic panel CBC auto differential Type and screen Protime-INR APTT Sedimentation rate, automated C-reactive protein Vitamin D Deficiency Screening (Vit D 25) Confirmatory ABO/Rh No Anticoagulants Weight-bearing restrictions Neurovascular checks Assess skin Admit to inpatient Please forward a copy of this H&P to the patient's PCP. Thank you. documented in this [facility]08-22-2023 [facility] 10-03-2022 Emergency department Note* Vineet Mckeon MD - 10/03/2022 5:27 PM EDT Emergency Department Encounter [facility] ED Patient: Donna Marsh : 1955 Date of Evaluation: 10/03/2022 ED Supervising Physician: Vineet Mckeon MD I independently examined and evaluated Donna Marsh. This will serve as my Supervisory note and shared attestation. I did perform a substantive portion of the visit including all aspects of the Medical Decision Making. I wore appropriate PPE for the entirety of this encounter. In brief, Donna Marsh is a 66 y.o. that presents to the emergency department with concerns about hardware displacement relating to an orthopedic surgery on her left hip. She indicates that she has been able to move her left foot around, she denies any pain in her left foot. Focused exam: Xdnoksi-fpah-yedypiatw, no acute distress, nontoxic-appearing HEENT- atraumatic, normocephalic Neck- no meningismus, no obvious masses Respiratory- bilateral breath sounds, no respiratory distress Cardiovascular- regular rate and rhythm, well perfused Abdomen- soft, non-tender, no rebound or guarding MSK- normal muscle bulk, no gross deformities. Left foot is warm and feels well perfused, able to wiggle the toes of the left foot, sensation to light touch grossly intact in the left foot. Skin- non-diaphoretic, no obvious rashes or lesions Neuro- alert, answering questions appropriately, CN2-12 grossly intact, moving all extremities Psych- calm, cooperative Medical conditions affecting care: recent hip surgery Escalation of care, appropriate for: admission for orthopedic surgery Brief ED course/MDM: 66-year-old female presenting at the request of her orthopedic surgeon due to hardware malfunction of her left hip. The patient is nontoxic-appearing. I have a low suspicion for acute limb ischemia given the clinical scenario. I have a low suspicion for sepsis as well. We spokewith orthopedics, who is okay keeping the patient here at [facility]. She will be admitted for further management/surgery. All diagnostic, treatment, and disposition decisions were made by myself in conjunction with the [facility]. For all further details of the patient's emergency department visit, please see their documentation. (Comment: Please note this report has been produced using speech recognition software and may contain errors related to that system including errors in grammar, punctuation, and spelling, as well as words and phrases that may be inappropriate. If there are any questions or concerns please feel freeto contact the dictating provider for clarification.) Vineet Mckeon MD Acute [facility] Vineet Mckeon MD 10/03/222013 * Rudy Quintana PA-C - 10/03/2022 5:27 PM EDT EMERGENCY DEPARTMENT ENCOUNTER Pt Name: Donna Marsh Birthdate 1955 Date of evaluation: 10/03/2022 ED Provider: Rudy Quintana PA-C EDcare was supervised by Dr. Mckeon who independently examined and evaluated the patient. Please see their attestation note for further details. CHIEF COMPLAINT Chief Complaint Patient presents with Hip Pain Pt presents to ED via EMS with c/o L hip pain. States that she had a surgery done on 08/06 to have arod placed. Reports that she has been in rehab since then. Had a follow up appt today with her orthopedic doctor today and told her to come straight here for emergent surgery because the jules didn't hold. HISTORY OF PRESENT ILLNESS (Location/Symptom, Timing/Onset, Context/Setting, Quality, Duration, Modifying Factors, Severity) Note limiting factors. I wore appropriate PPE for the entirety of this encounter. HPI Donna Marsh is a 66 y.o. who presents to the emergency department with complaint of left hip pain. Patient was previously seen and evaluated in outside emergency department approximately 2 months ago after she sustained a mechanical fall and a left-sided hip fracture. She was admitted for ORIF, and discovered to have potential metastatic lesions. She has undergone a bone marrow biopsy and is awaiting results for this. She will follow-up with her outpatient orthopedic provider today, who was concerned for hardware failure and migration of a nail in her left hip. Sent her in for further orthopedic evaluation and likely surgical intervention. Patient is complaining of no new or worsening symp toms today. No further injury or trauma. Nursing Notes were reviewed. Limitations to history: None Outside historians: None REVIEW OF SYSTEMS Review of Systems Constitutional: Negative for chills and fever. HENT: Negative for congestion and sore throat. Eyes: Negative for visual disturbance. Respiratory: Negative for cough and shortness of breath. Cardiovascular: Negative for chest pain. Gastrointestinal: Negative for abdominal pain, nausea and vomiting. Genitourinary: Negative for dysuria and hematuria. Musculoskeletal: Negative for arthralgias and myalgias. Left hip pain Skin: Negative for color change and rash. Neurological: Negative for dizziness and syncope. Psychiatric/Behavioral: Negative. All other systems reviewed and are negative. Pertinent positives and negatives as per HPI. PAST MEDICAL HISTORY Past Medical History: Diagnosis Date Bipolar 1 disorder (HCC) Diabetes mellitus (HCC) Hyperlipidemia Hypertension Neuropathy SURGICAL HISTORY Past Surgical History: Procedure Laterality Date CARPAL TUNNEL RELEASE HYSTERECTOMY TONSILLECTOMY (HISTORICAL) CURRENT MEDICATIONS Previous Medications ACETAMINOPHEN (TYLENOL EXTRA STRENGTH) 500 MG TABLET Take by mouth. ALENDRONATE (FOSAMAX) 70 MG TABLET ATORVASTATIN (LIPITOR) 20 MG TABLET Take 20 mg by mouth. BISACODYL (DULCOLAX) 10 MG SUPPOSITORY Insert into the rectum. BUSPIRONE (BUSPAR) 15 MG TABLET CARVEDILOL (COREG) 3.125 MG TABLET Take by mouth. CELECOXIB (CELEBREX) 200 MG CAPSULE Take 200 mg by mouth. ERGOCALCIFEROL (VITAMIN D-2) 1.25 MG (25177 UT) CAPSULE Take by mouth. FEXOFENADINE (ROC) 180 MG TABLET Take by mouth. FLUOXETINE (PROZAC) 20 MG CAPSULE Take 20 mg by mouth in the morning. GLIPIZIDE (GLUCOTROL) 10 MG TABLET Take by mouth. LISINOPRIL 20 MG TABLET Take by mouth. OMEPRAZOLE (PRILOSEC) [address] CAPSULE Take by mouth. OXYBUTYNIN XL (DITROPAN-XL) 10 MG 24 HR TABLET OXYCODONE (ROXICODONE) 5 MG IMMEDIATE RELEASE TABLET Take 5 mg by mouth. SODIUM PHOSPHATE (FLEETS) 7-19 GM/118ML ENEMA ENEMA Insert into the rectum. TRAMADOL (ULTRAM) 50 MG TABLET Take by mouth. ALLERGIES Codeine, Fentanyl, Morphine, and Nsaids FAMILY HISTORY No family history on file. SOCIAL HISTORY Social History Socioeconomic History Marital status: Tobacco Use Smoking status: Never Smokeless tobacco: Never Substance and Sexual Activity Alcohol use: No Drug use: No SCREENINGS Alloy Coma Scale Best Eye Response: Spontaneous Best Verbal Response: Oriented Best Motor Response: Follows commands Alloy Coma Scale Score: 15 PHYSICAL EXAM ED Triage Vitals Temp Heart Rate Resp BP 10/03/22 1906 10/03/22 1734 10/03/22 1734 10/03/22 1734 36.9 C (98.4 F) 91 18 126/60 SpO2 Temp Source Heart Rate Source Patient Position 10/03/22 1734 10/03/22 1906 10/03/22 1734 10/03/22 1734 100 % Oral Monitor Lying BP Location FiO2 (%) 10/03/22 1734 -- Left arm Physical Exam Vitals and nursing note reviewed. Constitutional: General: She is not in acute distress. Appearance: She is well-developed. Cardiovascular: Rate and Rhythm: Normal rate and regular rhythm. Heart sounds: No murmur heard. Pulmonary: Effort: Pulmonary effort is normal. No respiratory distress. Breath sounds: Normal breath sounds. Abdominal: General: Bowel sounds are normal. There is no distension. Palpations: Abdomen is soft. Tenderness: There is no abdominal tenderness. There is no guarding or rebound. Musculoskeletal: Right lower leg: No edema. Left lower leg: No edema. Skin: General: Skin is warm and dry. Capillary Refill: Capillary refill takes less than 2 seconds. Neurological: Mental Status: She is alert and oriented to person, place, and time. Psychiatric: Mood and Affect: Mood normal. Behavior: Behavior normal. DIAGNOSTIC RESULTS RADIOLOGY (Per Emergency Physician): Interpretation per the Radiologist below, if available at the time of this note: CTA pelvis angio w and wo IV contrast Final Result 1. Left femoral neck fracture with postsurgical changes and hardware malalignment. The malpositioned lag screw comes in close proximity to the left external iliac artery. 2. Compression deformities of L4 and L5. Sclerosis in L4 is nonspecific but a marrow replacing lesion cannot be entirely excluded. Report Dictated on Electronically Signed By: Dereck Gramajo MD Electronically Signed Date/Time: 10/03/2022 8:[address] hip left wo IV contrast Final Result Impression: Comminuted left femoral neck fracture, likely subacute. Postsurgical changes are present, with malpositioning of the surgical hardware as detailed above. Diffuse osteopenia. Report Dictated on Electronically Signed By: Dereck Gramajo MD Electronically Signed Date/Time: 10/03/2022 7:09 PM EDT LABS: Labs Reviewed BASIC METABOLIC PANEL - Abnormal Result Value SODIUM 138 POTASSIUM 6.0 (*) CHLORIDE 104 CARBON DIOXIDE 26 UREA NITROGEN 36 (*) CREATININE 0.84 GLUCOSE 143 (*) CALCIUM 9.6 ANION GAP 8 eGFR 75.8 CBC WITH AUTO DIFFERENTIAL - Abnormal Auto WBC 11.0 (*) RBC 3.94 Hemoglobin 11.9 Hematocrit 35.7 MCV 90.7 MCH 30.2 MCHC 33.2 RDW 14.7 (*) Platelets 350 MPV 8.0 nRBC 0.0 Neutrophils Relative 73.3 Lymphocytes Relative 18.8 (*) Monocytes Relative 6.0 Eosinophils Relative 1.4 Basophils Relative 0.5 Neutrophils Absolute 8.1 (*) Lymphocytes Absolute 2.1 Monocytes Absolute 0.7 Eosinophils Absolute 0.2 Basophils Absolute 0.1 SEDIMENTATION RATE, AUTOMATED - Abnormal Sed Rate 46 (*) C-REACTIVE PROTEIN - Abnormal C REACTIVE PROTEIN 14.9 (*) PROTHROMBIN TIME - Normal PROTHROMBIN TIME 11.0 INR 1.0 APTT - Normal APTT 26.8 Narrative: NOTE: The therapeutic time for Heparin anticoagulation, based on Xa activity inhibition, is an APTTof 46-80 seconds. VITAMIN D DEFICIENCY SCREENING (VIT D 25) - Normal VIT D 25-OH, TOTAL 68 Narrative: Therapy is based on measurement of Total 25-OHD with the following classification levels: Less than 20 ng/mL: Indicative of Vit D deficiency 20-30 ng/mL: Suggests Vit D insufficiency Optimal: Greater than or equal to 30 ng/mL Test performed by [employer] Competitive Immunoassay, measuring Total Vitamin D, not individual fractions. POCT GLUCOSE METER UNSOLICITED RESULTS - Normal Glucose 98 Narrative: Performed by: [facility], [address] [place] [id number] CLIA ID: [id number] BLOOD TYPE AND SCREEN GEL ABO Grouping O Antibody Screen NEG Rh Type POS CONFIRMATORY ABO/RH ABO Grouping O Rh Type POS HEMOGLOBIN A1C CBC WITH AUTO DIFFERENTIAL COMPREHENSIVE METABOLIC PANEL WITH MG REFLEX Narrative: The following orders were created for panel order Comprehensive Metabolic Panel w/ Mg Reflex. Procedure Abnormality Status --------- ------ Comprehensive metabolic p...[[id number]] Please view results for these tests on the individual orders. COMPREHENSIVE METABOLIC PANEL POCT GLUCOSE METER All other labs were within normal range or not returned as of this dictation. EMERGENCY DEPARTMENT COURSE and DIFFERENTIAL DIAGNOSIS/MDM: Vitals: Vitals: 10/03/22 1734 10/03/22 1906 10/03/22 1944 BP: 126/60 (!) 140/61 BP Location: Left arm Right arm Patient Position: Lying Lying Pulse: 91 83 Resp: 18 16 Temp: 36.9 C (98.4 F) 36.9 C (98.4 F) TempSrc: Oral Oral SpO2: 100% 95% Weight: 65.8 kg (145 lb) Height: 1.626 m (5' 4) Medications morphine injection 2 mg (2 mg IntraVENous Given 10/03/222032) glucose oral gel 15 g (has no administration in time range) dextrose 50 % solution 12.5 g (has no administration in time range) glucagon (human recombinant) injection 1 mg (has no administration in time range) dextrose 5 % infusion (has no administration in time range) Insulin Lispro (Humalog) injection 0-12 Units (has no administration in time range) And Insulin Lispro (Humalog) injection 0-12 Units ( SubCUTAneous Not Given 10/03/222129) acetaminophen (Tylenol) tablet 650 mg (has no administration in time range) Or acetaminophen (Tylenol) suppository 650 mg (has no administration in time range) ondansetron ODT (Zofran-ODT) disintegrating tablet 4 mg (has no administration in time range) Or ondansetron (Zofran) injection 4 mg (has no administration in time range) polyethylene glycol (PEG) 3350 (Miralax) packet 17 g (has no administration in time range) iopamidol (Isovue-370) 76 % injection 75 mL (75 mL IntraVENous Given 10/03/222024) MDM elements: The patient presented with chief complaint of left hip pain, patient is status post ORIF for a mechanical fall resulting in a left-sided hip fracture. Sent in by orthopedics for furtherevaluation of hardware failure and screw migration. The differential diagnosis associated with this patient's presentation includes postsurgical complication. Our workup consisted of ordering/reviewing: CBC with leukocytosis of 11, hemoglobin stable 11.9. PT/INR unremarkable. Sed rate and CRP mildly elevated. BMP with nonspecific changes. CT head obtained which demonstrates a comminuted left femoral neck fracture, malpositioning of surgical hardware noted. I spoke with orthopedics in regards this patient's presentation, they advised medical admission and will further evaluate patient, with anticipation of surgical intervention. Patient reports pain is well controlled, denies any further needs at this time. Will be admitted for further evaluation and surgical management. I also reviewed external records from Inpatient notes [facility]. I discussed their care with [facility]. The patient will be Admitted. Patient is in agreement with this plan. PROCEDURES: Unless otherwise noted below, none Procedures CRITICAL CARE TIME FINAL IMPRESSION 1. Complication of internal hip prosthesis, initial encounter ([facility]) DISPOSITION Admit 10/03/2022 07:11:13 PM PATIENT REFERRED TO: No follow-up provider specified. DISCHARGE MEDICATIONS: New Prescriptions No medications on file (Comment: Please note this report has been produced using speech recognition software and may contain errors related to that system including errors in grammar, punctuation, and spelling, as well as words and phrases that may be inappropriate. If there are any questions or concerns please feel freeto contact the dictating provider for clarification.) Rudy Quintana PA-C (electronically signed) Emergency Medicine Provider Rudy Quintana PA-C 10/03/222149 documented in this [facility]08-22-2023 History of Present illness Narrative* Cici Martinez MD - 10/03/2022 2:10 PM EDT [facility] [address] [place] [address] [place] [id number] Dept: [phone] Dept Chief Complaint Patient presents with New Patient Left hip possible metastatic cancer SUBJECTIVE HPI Donna is a 66-year-old female with a history significant for A-fib, bipolar, dementia, hypertension,coronary artery disease, type 2 diabetes presenting as a referral from [facility]. Back inlate July, Donna suffered a ground- level fall resulting in a non-displaced peritrochanteric left hipfracture that was treated with a short cephalomedullary nail with Dr. Dereck Ramirez of [facility] on 08/06/2022. Per all reports, surgery was routine and satisfactory reduction was achieved. In the immediate postoperative period, patient suffered from severe delirium and underwent extensive work-up while in the hospital. She was made weightbearing as tolerated postoperatively but was on ly able to take a few steps and was otherwise bedbound. She was worked up for stroke (which was negative) as well as infection. She states that she was diagnosed and treated for a pneumonia during that stay. She underwent a CT scan of her left lower extremity on postop day 1 to evaluate for hematoma collection due to postoperative anemia. At that time her hardware was intact but was apparent thatthe lag screw was placed in an anterior/superior position in the femoral head. The scan revealed noconcerning lesions in her pelvis and lumbar spine and pelvis that were concerning for malignant process. She was ultimately discharged to a [facility] and ultimately followed up with Dr. Regina Oden (oncology) who ordered a CT-guided biopsy of her most accessible lesion which was in the right iliac bone. Sometime in the interim it was discovered that she had complete loss of fixation of her cephalomedullary nail with proximal migration of the lag screw. She had follow-up with her orthopedic surgeon who recommended waiting until her work-up was complete before pursuing revision treatment. Shehas no known personal history of cancer has not been compliant with recommended screenings. Patientbe noted that thus far all of her cancer work-up has been essentially negative. Patient Active Problem List Diagnosis Date Noted Failed orthopedic implant ([facility]) (HCC) 10/03/2022 Left hip pain 10/03/2022 Allergies Allergen Reactions Codeine Other reaction(s): Intolerance, Itching Itching Fentanyl Other reaction(s): confusion Morphine Other Loss of Memory Nsaids Rash No family history on file. Past Medical History: Diagnosis Date Bipolar 1 disorder ([facility]) Diabetes mellitus (HCC) Hyperlipidemia Hypertension Neuropathy Social History Socioeconomic History Marital status: Spouse name: Not on file Number of children: Not on file Years of education: Not on file Highest education level: Not on file Occupational History Not on file Tobacco Use Smoking status: Never Smokeless tobacco: Never Substance and Sexual Activity Alcohol use: No Drug use: No Sexual activity: Not on file Other Topics Concern Not on file Social History Narrative Not on file Social Determinants of Health Financial Resource Strain: Not on file Food Insecurity: Not on file Transportation Needs: Not on file Physical Activity: Not on file Stress: Not on file Social Connections: Not on file Intimate Partner Violence: Not on file Housing Stability: Not on file Past Surgical History: Procedure Laterality Date CARPAL TUNNEL RELEASE HYSTERECTOMY TONSILLECTOMY (HISTORICAL) Current Outpatient Medications Medication Sig Dispense Refill acetaminophen (Tylenol Extra Strength) 500 MG tablet Take by mouth. alendronate (Fosamax) 70 MG tablet atorvastatin (Lipitor) 20 MG tablet Take 20 mg by mouth. bisacodyl (Dulcolax) 10 MG suppository Insert into the rectum. busPIRone (Buspar) 15 MG tablet carvedilol (Coreg) 3.125 MG tablet Take by mouth. celecoxib (CeleBREX) 200 MG capsule Take 200 mg by mouth. ergocalciferol (Vitamin D-2) 1.25 MG (94430 UT) capsule Take by mouth. fexofenadine (Roc) 180 MG tablet Take by mouth. FLUoxetine (PROzac) 20 MG capsule Take 20 mg by mouth in the morning. glipiZIDE (Glucotrol) 10 MG tablet Take by mouth. lisinopril 20 MG tablet Take by mouth. omeprazole (PriLOSEC) [address] capsule Take by mouth. oxybutynin XL (Ditropan-XL) 10 MG 24 hr tablet oxyCODONE (Roxicodone) 5 MG immediate release tablet Take 5 mg by mouth. sodium phosphate (Fleets) 7-19 GM/118ML enema enema Insert into the rectum. traMADol (Ultram) 50 MG tablet Take by mouth. No current facility-administered medications for this visit. Review of Systems Constitutional: Negative for activity change, appetite change, chills, diaphoresis, fatigue, fever and unexpected weight change. HENT: Negative for mouth sores, nosebleeds and trouble swallowing. Eyes: Negative for visual disturbance. Respiratory: Negative for apnea, cough, choking, chest tightness, shortness of breath, wheezing andstridor. Cardiovascular: Negative for chest pain, palpitations and leg swelling. Gastrointestinal: Negative for abdominal pain, constipation, diarrhea, nausea and vomiting. Genitourinary: Negative for difficulty urinating, flank pain and hematuria. Musculoskeletal: Positive for arthralgias, back pain and gait problem. Negative for joint swelling. Left hip possible metastatic disease, Surgery 08/06/22 Left hip nail for femoral neck fracture, the hardware failed and the screw migrated on XR. Patient has been Non-ambulatory since her surgery and is on gurney today. History of Lumbar fracture in 2004, has a foot drop at baseline on the RLE. Bonemarrow and bone biopst perfromed at [facility] August 2022 Skin: Negative for color change, pallor, rash and wound. Allergic/Immunologic: Negative for environmental allergies, food allergies and immunocompromised state. Neurological: Negative for dizziness, weakness, light-headedness, numbness and headaches. Hematological: Negative for adenopathy. Does not bruise/bleed easily. Psychiatric/Behavioral: Negative for behavioral problems, confusion, self-injury and sleep disturbance. OBJECTIVE Vitals: 10/03/22 1407 Weight: 65.8 kg (145 lb) Height: 1.638 m (5' 4.5) Physical Exam Physical Exam Vitals and nursing note reviewed. Constitutional: Appearance: Normal appearance. Positioned on g[place] Cardiovascular: Rate and Rhythm: Normal rate. Pulmonary: Effort: Pulmonary effort is normal. Skin: General: Skin is warm and dry. Neurological: General: No focal deficit present. Mental Status: He is alert and oriented to person, place, and time. Psychiatric: Mood and Affect: Mood normal. Behavior: Behavior normal. Left hip: Surgical incisions well-healed without evidence of infection. Pain with any range of motion of the hip. Sensation intact to light touch in all distributions. Foot drop present which patientstates is chronic. Distal pulses not palpable but foot is warm and well-perfused. No calf tenderness palpation, negative Homans' sign XRAY INTERPRETATION I have reviewed the actual outside facility imaging studies obtained and interpreted them at the time of the visit Left hip (10/03/2022): Patient is status post short cephalomedullary nailing of the left peritrochanteric hip fracture with hardware failure, specifically the lag screw is migrated proximally and medially out of the nail and is no longer contacting the intramedullary nail portion of the implant. Thedistal interlocking screw appears to be intact. She has collapse of her fracture site with some possible interval callus formation, and extreme varus. CT abdomen/pelvis ([facility], 08/14/2022): Status post left hip cephalomedullary nail, hardware intact but noted possible superior cut out of the lag screw. Severe osteoporosis throughout the pelvis and lumbosacral spine. Numerous sclerotic/lytic lesions throughout the bony pelvis and lumbar spine with numerous compression fractures in various stages of healing. ASSESSMENT 1. Failed orthopedic implant, initial encounter ([facility]) 2. Left hip pain 66-year-old female with failed hardware fixation of left peritrochanteric hip fracture. Concern formetastases PLAN Long discussion was had with the patient and her family regarding her current issues. From a cancerstandpoint, there is no convincing evidence at this time that her lesions are from metastatic disease. (Phone call to dr oden) All work- up and advanced imaging have been negative for malignant process. Her failed left hip fracture fixation is a separate issue which should be addressed promptly dueto her recent unacceptable quality of life. We attempted to have her direct admitted to [facility] however this was not available. Due to the nature of her problem which will likely require an arthroplasty solution, patient will present to [facility] emergency department we will obtain an updated CT scan to assess the position of her failed hardware. I did not feel that having her return to her [facility] in this state was in her best interest. She will need medical optimization prior to surgery and we will coordinate consultation with one of our hip arthroplasty specialist. All questions were answered and patient and family was on board with this plan. No follow-ups on file. Voice recognition was used for portions of this note and although it was reviewed prior to signing some incorrect words or phrases could be present. Electronically signedby Sharita Dos Santos MD on 10/03/2022 at 5:50 PM documented in this [facility]08-17-2023 Miscellaneous Notes* Telephone Encounter - Cristina Graham LPN - 09/28/2022 8:37 AM EDT Attempted to contact Sue at number listed below, not a working number. The CT in question was requested by the IR physician at [facility] and is not needed now. Cristina Graham LPN * Telephone Encounter - Daksha Tang - 09/27/2022 3:56 PM EDT Sue called stating she has a CT order that states needs to be completed prior to biopsy. She states patient had biopsy on 09/[address] and is [address] still needs to be completed. Please advise her at [phone] [facility] Miscellaneous Notes* Telephone Encounter - Cristina Graham LPN - 09/18/2022 3:49 PM EDT Order revised and re-faxed to [facility]. Cristina Graham LPN * Telephone Encounter - Kanwal Mccarthy - 09/18/2022 1:38 PM EDT Nurse calling from [facility] Green Top Tube for Flow CYTOMETRY Provider at [facility] thinks it should be ordered with flow. The order that was sent has flow crossed off. Please reach out to the nurse Teresa- [phone] (is in till 2pm today.Will be in in the morning). Ok to just fax new order [phone] documented in this [facility]The [facility]07-[facility]23 Miscellaneous Notes* Telephone Encounter - Daksha Tang - 08/18/2022 1:[address] and scheduled patient. Found several Dr. aTmiko Quigley's. Please update the referring provider in appt. if more information is in red folder for provider. * Telephone Encounter - Kanwal Mccarthy - 08/17/2022 3:22 PM EDT Received referral from nurse DX: METASTATIC DISEASE OF UNKNOWN PRIMARY REF PROV: MIRIAM QUIGLEY 1ST ATTEMPT: LM When pt returns call please schedule Next New with . Please update pts ins and reg as well.Current ins is rej. Placed red referral in pt to return call folder at [facility] desk documented in this encounterThe [facility]07-[facility]-2023 Discharge summary Author Tamiko Quigley [facility] August 16, 2022 3:37pm Note Date/Time August 16, 2022 3:15p m [facility] Medical Records Department [address] [place] [id number] Discharge Summary 08/16/22 1513 MR#: [id number] Acct: [id number] Name: DONNA MARSH Rep #:[id number] : 1955 66 From: Tamiko Quigley DO PCP: ORESTES Cano Status:ADM IN Location: [facility] [id number]- [id number] Providers Date of Admission: 08/05/22 Date of Discharge: 08/16/22 Primary Care Physician: ORESTES Cano Consultations 08/14/22 13:25 Consult: Oncology/Hematology Routine Consulting Provider: Home Miller Reason for Consult: Metastatic dz of unknown primary EMERGENT Consult: No MD Notified: Yes Date Notified: 08/14/22 Time Notified: 13:25 Method of Notification: paged via pump house operator 08/15/22 07:08 Consult: Chief Dog License Inspector / Pulmonary Medicine Routine Consulting Provider: [facility] Reason for Consult: Empyema EMERGENT Consult: No MD Notified: Yes Date Notified: 08/15/22 Time Notified: 07:08 Method of Notification: Text 08/15/22 07:14 Consult: Infectious Disease Routine Consulting Provider: Prem Toro Reason for Consult: empyema EMERGENT Consult: No MD Notified: Yes Date Notified: 08/15/22 Time Notified: 07:14 Method of Notification: Answering Service Reason For Visit: NONDISPLACED INTERTRACHANTERTIC FX OF LEFT FEMUR Diagnosis Discharge Diagnosis (1) Pleural effusion: Status: Acute Code(s): J90 - Pleural effusion, not elsewhere classified Medications at Discharge Home Medications alendronate 70 mg tablet 70 mg PO SA osteoporosis 01/06/18 buspirone 7.5 mg tablet 15 mg PO BID anxiety 01/06/18 fluoxetine 40 mg capsule 40 mg PO BID anxiety 01/06/18 glipizide 5 mg tablet 10 mg PO DAILY antidiabetic 01/06/18 omeprazole 20 mg tablet,delayed release 20 mg PO DAILY GERD 01/06/18 oxybutynin chloride 5 mg tablet 10 mg PO DAILY 01/06/18 simvastatin 40 mg tablet 40 mg PO DAILY Cholesterole 01/06/18 carvedilol 3.125 mg tablet 3.125 mg PO BID #90 tabs 07/10/18 ergocalciferol (vitamin D2) 1,250 mcg (50,000 unit) capsule 50,000 unit PO SA supplement 02/12/19 lisinopril 20 mg tablet 20 mg PO DAILY #30 tabs 02/15/19 fexofenadine 180 mg tablet 180 mg PO DAILY 07/06/22 celecoxib 200 mg capsule 200 mg PO BREAKFAST #0 caps 08/16/22 enoxaparin 40 mg/0.4 mL subcutaneous syringe 40 mg (0.4 mL) subcut DAILY #4 mL 08/16/22 metronidazole 500 mg tablet 500 mg PO TID #0 tabs 08/16/22 nutrition tx glu intol,lac-free,soy-fiber 0.06 gram-1.2 kcal/mL liquid (Glucerna1.2 Broderick) 120 ml PO 4X/DAY #0 mL 08/16/22 nystatin 100,000 unit/gram topical powder (Nyamyc) 1 applic topical BID #0 grams08/16/22 tramadol 50 mg tablet 50 mg PO Q6H PRN PRN Pain Score 6-10 #30 tabs 08/16/22 Hospital Course Operations - (CMN left hip) Procedures Thoracentesis and - (CT brain/CT cervical spine/hip and pelvic x-rays/CTA head and neck/MRI brain/CT left lower extremity/CT chest/CT abdomen pelvis/bony osseous survey/chest x-ray) Summary of Care Provided Minutes Spent on Discharge: 43 Hospital Course: Mrs. Marsh is a 66-year-old white female who presented to the emergency department at [facility] on 08/05/2022 after a fall related to her left foot drop that was mechanical in nature. She indicated she landed on her left side and had excruciating left lower extremity pain from her hip to herknee. Imaging revealed a left intertrochanteric fracture patient was taken to the OR on 08/06/2022 at which time a centimeter and was placed. The patient doeshave a known history of osteoporosis with previous vertebral compression fractures and kyphoplasty. She is on Fosamax and vitamin D supplementation at baseline. Stroke alert was called on 08/07/2022 as patient was having nonsensical conversation. Her hemoglobin dropped from 12.4-7.7 the day previous. Patient was evaluated by the stroke neurologist with initial NIH was 12. CT of the head was unremarkable. CTA of the head and neck showed no acute LVO and MRI was performed and showed no stroke. During her stay she had increasing confusion and her IV narcotics were changed to IV Toradol and some Nubain which she appeared to respond best to. Her mental status did return backto baseline per discussion with family and on the day of discharge she was alertand oriented x3 without any deficits. On the a.m. of 08/13/2022 her white count had trended up and a chest x-ray and a UA was performed UA was not consistent with infection however chest x-ray demonstrated what appeared to be a large leftpleural effusion and therefore CT of her chest was performed. CT of her chest showed a small right pleural effusion and a large left pleural effusion. The patient was requiring supplemental oxygen at [address] also reported multiple osseous lytic lesions in the thoracic and lumbar spine as well as the ribs long with rib fractures that appear to be pathologic. Interestingly, CT of her head that was performed prior to surgery did not show any lytic lesions there. A CT of her abdomen pelvis with IV and p.o. contrast was performed and no significantabnormalities were noted. CEA, CA 19-9, and CA125 were ordered and oncology wasconsulted.Dr. Miller evaluated the patient and felt that all her fractures were due to osteoporosis and recommended waiting pathology on the fluid. Culture on the fluid grew out Prevotella and pulmonary medicine and infectious disease wereconsulted. It was felt due to the cell counts and glucose that this was not an empyema but probably a hematoma as well as a parapneumonic effusion. Infectiousdisease recommended continuing treatment of the Prevotella with oral metronidazole 500 mg 3 times a day for the next 10 days. We did repeat a chest x-ray the day following and 48 hours after her thoracentesis and she had no reaccumulation of fluid. With regards to the lytic lesions found on her axial and appendicular skeleton via a CT of the chest, I discussed further with familyand they had no interest in seeing Dr. Miller again and reported a bad interactionwith him the day prior. I discussed the case with Dr. Oden and he recommended obtaining a skeletal survey, MRI of the brain, cervical spine, thoracic spine, lumbar spine with and without IV contrast as well as an SPEP, UPEP, and immunofixation. We were unable to get the MRIs performed due to time constraints with MRI scheduling and it was felt that this was predominantly outpatient work-up since clinically she was stable for discharge. Dr. Oden wasmade aware and indicated these would be performed then as an outpatient. The patient want to need sedation for this. Recommendation to proceed with these was also placed in her discharge paperwork and may be scheduled by the physiciancovering the nursing facility if so desired. Her osseous survey was pending at the time of discharge. Per discussion with the patient and family there is a strong family history of breast cancer. Her sisters had bilateral mastectomies for 2 different primary cancers. The patient herself has never had a mammogram. I did discuss this as well with Dr. Oden men he will follow-up as an outpatient for this as well. Patient was followed by occupational, speech, and physical therapy during her hospital stay. She was markedly debilitated and they recommended ongoing skilled services at the time of discharge. The patientwas excepted for discharge and pre-CERT was obtained on 08/16/2022 and the patientwas able to be discharged in medically stable condition on 2 L nasal cannula. Her oxygen may be weaned over time and I suspect this can be weaned quite look quickly. She will need to continue incentive spirometry and Acapella to preventreoccurring pneumonia as she is high risk especially with her rib fractures. She did develop extensive hematoma on the left side and hemoglobin drop which required transfusion during her hospital stay. Hemoglobin had stabilized and DVT prophylaxis was reinitiated with Lovenox. This will need to be continued for 30 days postoperatively per orthopedic recommendations. Family will need tocall and make a follow-up appointment with Dr. Oden to be seen within the next week either at his office or one of his partners offices. She will need follow-up within the next 2 weeks to follow-up with orthopedic surgery. She will need follow-up with her primary care physician within the next month. Plan of care was extensively discussed with the patient and her daughter Joo who is her healthcare power of civil litigation attorney. Discharge diagnoses: Acute left intertrochanteric fracture Multiple lytic lesions on appendicular and axial skeleton Left-sided Prevotella parapneumonic effusion/hemothorax Hypoxia Acute blood loss anemia Leukocytosis DM-2 Hypertension Hyperlipidemia Osteoporosis CKD stage IIIb GERD Toxic/metabolic encephalopathy-resolved Depression Anxiety Urinary incontinence Physical Exam Const alert, oriented x3, no apparent distress, average body habitus, healthy appearing and well nourished Constitutional Narrative: Upper middle-aged, obese, white female, lying in bed, sister and daughter, patient appears comfortable nontoxic, interacts appropriately and mental status is good General Appearance: cooperative, comfortable, well kempt and well developed Orientation / Consciousness: awake, oriented to person, oriented to place and oriented to time Exam Limitations: no limitations Nutritional Appearance: obese HEENT normocephalic, head/scalp atraumatic, hearing grossly normal bilaterally and moist oral mucous membranes HEENT Narrative: Edentulous, Mallampati 3, no thrush Eyes PERRL and EOMs intact bilaterally Eyes Narrative: Conjunctiva are mildly pale bilaterally, no scleral icterus Neck no lymphadenopathy, supple, no JVD, thyroid normal and no carotid bruits Neck Narrative: Trachea midline, neck is in for, no thyroid enlargement Resp normal respiratory effort, no retractions, no use of accessory muscles and clearto auscultation bilaterally Resp Narrative: Good aeration bilateral bases with much improved aeration on the right Auscultation: Negative for rales, rhonchi or wheezes Cardio regular rate, regular rhythm, S1 normal heart sound, S2 normal heart sound, no murmurs, no rub, no gallops and no clicks GI normal to inspection, nondistended, normoactive bowel sounds, soft to palpation,non-tender and non-distended Extremity no clubbing, cyanosis or edema Extremity Narrative: Significant ecchymosis at the left lateral leg down the posterior lateral aspectof her left thigh to about the knee area, Skin no rashes or lesions noted, skin turgor normal, no jaundice, no petechiae and nomottling Skin Narrative: Changes as noted above, patient also with ecchymosis up in the lower lateral left trunk area and left neck General Skin Exam: no breakdown Neuro oriented x3, CN's II-XII intact bilaterally, moves all extremities and no focal motor deficits Neuro Narrative: Able to move all extremities however decreased movement left lower extremity secondary to pain Sensorium / Orientation: awake, alert, oriented to person, oriented to place andoriented to time Speech: speech normal Psych affect normal Psych Narrative: Appropriately interactive, appears comfortable, eye contact is good Weight / BMI Weight Weight: 79.6 kg Body Mass Index (BMI) 30.1 ABG / Lab / Microbiology Data 08/16/22 05:15 08/16/22 05:15 Laboratory: Laboratory Results - last 24 hr 08/15/22 16:52: POC Glucose 200 H 08/15/22 22:21: POC Glucose 187 H 08/16/22 05:15: WBC 11.4 H, RBC 2.76 L, Hgb 8.4 L, Hct 26.0 L, MCV 94.2, MCH 30.4, MCHC 32.3, RDW Std Deviation 55.5 H, RDW Coeff of Gerhard 17.2 H, Plt Count 312, MPV 9.5, Immature Gran % (Auto) 1.200 H, Neut % (Auto) 69.7, Lymph % (Auto)19.3, Long % (Auto) 7.9, Eos % (Auto) 1.8, Baso % (Auto) 0.1, Absolute Neuts (auto) 8.0 H, Absolute Lymphs (auto) 2.20, Nucleated RBC % 0, Sodium 138, Potassium 3.3 L, Chloride 98, Carbon Dioxide 35.0 H, Anion Gap 5, BUN 20 H, Creatinine 0.87, Estim Creat Clear Calc 53.44, Est GFR (MDRD) Af Amer 83, Est GFR (MDRD) Non-Af 69, BUN/Creatinine Ratio 23.1 H, Glucose 165 H, Calcium 8.2 L 08/16/22 06:17: POC Glucose 162 H 08/16/22 12:30: POC Glucose 187 H Microbiology: Microbiology 08/14/22 14:25 Fluid - Pleural (Lung) Gram Stain - Final 08/14/22 14:25 Fluid - Pleural (Lung) Body Fluid Culture - Preliminary No growth-Final to follow 08/14/22 14:25 Fluid - Pleural (Lung) Anaerobic Culture - Final Prevotella bivia 08/07/22 06:25 Blood Culture (Wb) - Right Wrist Blood Culture - Final No growth in 5 days. 08/07/22 06:20 Blood Culture (Wb) - Anticubital Right Blood Culture - Final No growth in 5 days. 08/07/22 08:45 Urine, Random Urine Culture - Final Culture exhibits no growth. Radiography Diagnostic Testing: Radiology Impression Chest X-Ray 08/16/22 07:19 IMPRESSION: Interval resolution of pulmonary vascular congestion. Stable minimal left pleural effusion. No definite right pleural effusion is identified. Mild improvement of discoid atelectasis within the right mid to lower lung. Stable infiltrates within the left lower lung. Electronically Signed: Luis Rider MD at 7:54 EDT , Meaningful Use Info Meaningful Use Diagnoses (Choose all that apply): None applicable Discharge Plan Admission Admit Date/Time: 08/05/22 20:29 Primary Reason for Your Visit: Fall/left hip pain Attending Provider: Tamiko Quigley Primary Care Provider: Rudy Boyer Consulting Providers: Home Valverde; John Short; Home Miller; Filemon Coffman; Atul Quezada; Dann Linn; Floyd Kelley; Cindy Wyatt NP; Prem Toro Instructions Patient Instructions: PETE VILLASENOR Thoracentesis Dc Additional Instructions / Restrictions: 1. Please call Dr. Oden's office to set up an appointment to be seen within the next 1 to 2 weeks--> tell them the hospitalist discussed the case with him prior to discharge 2. You will need an MRI of your brain, cervical spine, thoracic spine, and lumbar spine with and without contrast as an outpatient for further work-up for possible cancer diagnosis 3. You will also likely need a mammogram 4. Please use the incentive spirometer and the Acapella device given to you in the hospital for your breathing 10 times every 2 hours while awake to prevent development of further pneumonia Discharge Orders/Prescriptions Prescriptions: New celecoxib 200 mg Capsule 200 mg PO BREAKFAST Qty: 0 0RF metronidazole 500 mg Tablet 500 mg PO TID Qty: 0 0RF Rx Instructions: Will need to complete 10 days tramadol 50 mg Tablet 50 mg PO Q6H PRN PRN (Reason: Pain Score 6-10) Qty: 30 0RF enoxaparin 40 mg/0.4 mL Syringe 40 mg subcut DAILY Qty: 4 0RF Rx Instructions: Please use 30 days after post op nystatin [Nyamyc] 100,000 unit/gram Powder 1 applic topical BID Qty: 0 0RF Protocol: *Topical Application Instructions APPLICATION INSTRUCTIONS: ABD FOLDS Glucerna 1.2 Broderick 0.06-1.2 gram-kcal/mL Liquid 120 ml PO 4X/DAY Qty: 0 0RF Continued fexofenadine 180 mg tablet 180 mg PO DAILY fluoxetine 40 MG capsule 40 mg PO BID alendronate 70 MG tablet 70 mg PO SA Rx Instructions: unknown simvastatin 40 MG tablet 40 mg PO DAILY buspirone 7.5 MG tablet 15 mg PO BID oxybutynin chloride 5 MG tablet 10 mg PO DAILY glipizide 5 MG tablet 10 mg PO DAILY omeprazole 20 MG tablet,delayed release (DR/EC) 20 mg PO DAILY ergocalciferol (vitamin D2) 50,000 UNIT capsule 50,000 unit PO SA lisinopril 20 MG tablet 20 mg PO DAILY Qty: 30 0RF carvedilol 3.125 mg tablet 3.125 mg PO BID Qty: 90 3RF Rx Instructions: heart/ blood pressure Discontinued meloxicam 7.5 MG tablet 7.5 mg PO DAILY Qty: 30 0RF Referrals / Follow Up: Dereck Ramirez DO [Med Staff - Active Staff] - Within 2 Weeks (Postoperative follow-up) Regina Oden DO [Med Staff - Active Staff] - Within 1 Week (Call on 08/17/2022 to make an appointment to be seen as soon as possible and tell them that the hospital doctor discussed the case with Dr. Oden) Rudy Boyer NP-C [Primary Care Provider] - Within 1 Month Disposition Disposition (needs filled in before D/C Order can be placed): Care Home Facility Charges/Coding Visit Charges Inpatient E&M: 95972 SNF Disch >30 Min 08/16/22 1537 <Electronically signed by Tamiko Quigley DO> Cosigner Signature (if applicable): CC: WALLPAPER PRINTER HELPER-C Rudy Boyer; Dr. Tamiko Quigley DO; Dr. Dereck Ramirez DO; Dr. Quin DO~ Signed [facility] Work Phone: [phone]) 171-365707-05-2023 Progress note Author Dann Linn [facility] August 16, 2022 3:16pm Note Date/Time August 16, 2022 3:16p m [facility] Medical Records Department [address] [place] [address] Progress Note - Chief Dog License Inspector 08/16/22 1503 MR#: [id number] Acct: [id number] Name: DONNA MARSH Rep #:[id number] : 1955 66 From: Dann Linn MD PCP: ORESTES Cano Status:ADM IN Location: [place] [address]- [id number] Assessment & Plan Assessment/Plan (1) Pleural effusion: PLAN: Resolved left bloody pleural effusion, possibly due to combination of trauma and infection with Prevotella bivia anerobe without empyema. The Prevotella may be a contaminant. Patient has improved clinically and radiographically. There is been no recurrence of the pleural effusion on the left, minimal residual, no need to be tapped at this time. - repeat the CXR upright on SundayAugust 18 to assure the effusion does not reaccumulate; if it does, re-tap to dry, and send pleural fluid at a minimum forrepeat C&S, CBC diff, glucose, pH (if available), cytology. - fall precautions. - Aggressive bronchopulmonary hygiene, incentive spirometry, mobilization due to residual atelectasis, which puts her at increased risk of recurrent pneumonia, and pulmonary restriction if she heals with pleural fibrotic changes. PLAN: Plan Patient has improved. [facility] will sign off for now, please call if further input is needed. Thank you for the consult. Subjective Subjective Patient is feeling slightly better. No air hunger, no cough fevers chills or hemoptysis. Still has severe pain with any motion due to a combination of her left-sided hematoma and recovering from left ORIF. Today's chest x-ray shows improved bilateral infiltrates as she has diuresed, persistent bibasilar atelectasis, minimal residual fluid in the left pleural space with no increase from prior. Her peripheral and facial edema has improved significantly after diuresis. Objective Data Objective Data Vital Signs: Vital Signs Temp Pulse Resp BP Pulse Ox O2 Del Method O2 Flow Rate 98.2 F 80 18 134/62 H 96 Nasal Cannula 3 08/16/22 09:15 08/16/22 14:17 08/16/22 14:17 08/16/22 09:15 08/16/22 09:15 08/16/22 09:27 08/16/22 09:27 Oxygen Flow Rate (L/min) [4] 4 Oxygen Flow Rate (L/min) [3] 4 Oxygen Flow Rate (L/min) [2] 4 Oxygen Flow Rate (L/min) [1 ( 4 Initial Baseline)] Oxygen Flow Rate (L/min) 3 Oxygen Delivery Method [4] Nasal Cannula Oxygen Delivery Method [3] Nasal Cannula Oxygen Delivery Method [2] Nasal Cannula Oxygen Delivery Method [1 ( Nasal Cannula Initial Baseline)] Oxygen Delivery Method Nasal Cannula Weight: 175 lb 7.807 oz Body Mass Index (BMI) 30.1 Intake & Output: Intake and Output for Last 24 Hours 08/14/22 08/15/22 08/16/22 23:59 23:59 23:59 Intake Total 1880 / 1880 404.42 / 404.42 224 / 224 Output Total 5450 / 5450 3800 / 3800 350 / 350 Balance -3570 / -3570 -3395.58 / -3395.58 -126 / -126 Lab / Micro Data 08/16/22 05:15 08/16/22 05:15 Labs: Laboratory Results - last 24 hr 08/15/22 16:52: POC Glucose 200 H 08/15/22 22:21: POC Glucose 187 H 08/16/22 05:15: WBC 11.4 H, RBC 2.76 L, Hgb 8.4 L, Hct 26.0 L, MCV 94.2, MCH 30.4, MCHC 32.3, RDW Std Deviation 55.5 H, RDW Coeff of Gerhard 17.2 H, Plt Count 312, MPV 9.5, Immature Gran % (Auto) 1.200 H, Neut % (Auto) 69.7, Lymph % (Auto)19.3, Long % (Auto) 7.9, Eos % (Auto) 1.8, Baso % (Auto) 0.1, Absolute Neuts (auto) 8.0 H, Absolute Lymphs (auto) 2.20, Nucleated RBC % 0, Sodium 138, Potassium 3.3 L, Chloride 98, Carbon Dioxide 35.0 H, Anion Gap 5, BUN 20 H, Creatinine 0.87, Estim Creat Clear Calc 53.44, Est GFR (MDRD) Af Amer 83, Est GFR (MDRD) Non-Af 69, BUN/Creatinine Ratio 23.1 H, Glucose 165 H, Calcium 8.2 L 08/16/22 06:17: POC Glucose 162 H 08/16/22 12:30: POC Glucose 187 H Current medications were reviewed August 16, include Tylenol, DuoNeb, Unasyn IV, atorvastatin, buspirone, calcium, carvedilol, celecoxib. Lovenox, vitamin D, fluoxetine, furosemide 40 mg IV twice daily, hydralazine as needed, hydrocodone with acetaminophen as needed, lisinopril 40 mg daily, loratadine 10 mg daily, lorazepam 0.5 mg every 8 as needed pain, metoprolol, Flagyl 500 mg 3 times daily, methocarbamol 750 mg every 6, nystatin twice daily, pantoprazole 40 mg twice daily, potassium 20 mill equivalents twice daily, risperidone 1.5 at bedtime, tolterodine tartrate 2 mg daily, tramadol as needed and other as needed. Micro: Microbiology 08/14/22 14:25 Fluid - Pleural (Lung) Gram Stain - Final 08/14/22 14:25 Fluid - Pleural (Lung) Body Fluid Culture - Preliminary No growth-Final to follow 08/14/22 14:25 Fluid - Pleural (Lung) Anaerobic Culture - Final Prevotella bivia 08/07/22 06:25 Blood Culture (Wb) - Right Wrist Blood Culture - Final No growth in 5 days. 08/07/22 06:20 Blood Culture (Wb) - Anticubital Right Blood Culture - Final No growth in 5 days. 08/07/22 08:45 Urine, Random Urine Culture - Final Culture exhibits no growth. Radiography Diagnostic Testing: Radiology Impression Chest X-Ray 08/16/22 07:19 IMPRESSION: Interval resolution of pulmonary vascular congestion. Stable minimal left pleural effusion. No definite right pleural effusion is identified. Mild improvement of discoid atelectasis within the right mid to lower lung. Stable infiltrates within the left lower lung. Electronically Signed: Luis Rider MD at 7:54 EDT , Rhythm Strip Rhythm Strip: Sinus Rhythm Rate: 90 Ectopy: None Physical Exam Narrative Well-developed chronically ill-appearing woman who is laying on her side, mildlysedated, no respiratory distress. HEENT: Facial edema has resolved. Mucous membranes moist. Nasal cannula in place. Lungs are clear bilaterally, no wheezes rales or rhonchi. Heart tachycardic S1-S2 Abdomen is soft nontender Extremities have trace pitting edema. Neuro nonfocal. Still has great difficulty turning sitting up on her own because of pain and/or motivation. Charges/Coding Visit Charges Inpatient E&M: 33152 Subs Hosp L2 08/16/22 1516 <Electronically signed by Dann iLnn MD> Cosigner Signature (if applicable): CC: ~ Signed [facility] Work Phone: 1(314) 958-702607-05-2023 Discharge summary Author Tamiko Quigley [facility] August 16, 2022 3:12pm Note Date/Time August 16, 2022 3:12p m [facility] Medical Records Department [address] [place] [address] Transfer to [facility] MR#: [id number] Acct: [id number] Name: DONNA MARSH Rep #:[id number] : 1955 66 From: Tamiko Quigley DO PCP: ORESTES Cano Status:ADM IN Certification of patient admission REQUIRED AT TIME OF ADMISSION. I CERTIFY THAT POST-HOSPITAL ECF SERVICES ARE REQUIRED TO BE GIVEN ON AN IN-PATIENT BASIS BECAUSE OF THE ABOVE NAMED PATIENT'S NEED FOR USP CARE ON A CONTINUING BASIS FOR THE CONDITION(S) FOR WHICH HE/SHE WAS RECEIVING IN-PATIENT HOSPITAL SERVICES PRIOR TO HIS/HER TRANSFER TO THE ECF. 08/16/22 1512<Electronically signed by Tamiko Quigley DO> Diet Diet Order/Speech Therapy: 08/09/22 12:32 Diabetic [Diet: Consistent Carb - Calorie Controlled] Food consistency:: Easy to Chew Liquid Consistency:: Regular/Thin Is pt able to select menu?: No Diet Comments: Direct sup/assistance by staff ONLY How many daily calories?: 1800 calorie Routine Orders/Code Status Routine Lab Work: CBC (5 day) and BMP (5 days) Code Status: Full Code Wound(s) LEFT KNEE: Wound Type: Abrasion FACE: Wound Type: Abrasion LEFT HIP: Wound Type: Surgical Incision upper lt hip: Wound Type: Surgical Incision Suggestions for Active Care Change Position every (hours): 2 Therapies Weight Bearing: Weight bearing as tolerated Extremity Affected:: Left Lower Physical Therapy: Eval and Treat Occupational Therapy: Eval and Treat Speech Therapy: Eval and Treat Problem/Diagnosis (1) Pleural effusion: Status: Acute Code(s): J90 - Pleural effusion, not elsewhere classified Allergies/Procedures Done in Hospital Allergies codeine Allergy (Verified 08/05/22 17:54) Itching naproxen Adverse Reaction (Verified 08/05/22 17:54) Other makes me jittery Procedures: Thoracentesis and - (Chest x-ray/CT chest/CT left lower extremity/MRI brain/CTA head neck/bony osseous survey) Type of Care/Length of Stay Estimated LOS: Convalescent Care Less Than 30 days Type of Care Needed: Skilled Rehab Potential: Good Prognosis: Fair Additional Orders/Day of Discharge Additional Orders: We will need to utilize incentive spirometry and Acapella aggressively to prevent pneumonia with rib fractures Patient needs outpatient follow-up with Dr. Oden's office which will need to beset up after discharge Patient needs an MRI of her brain, cervical, thoracic, lumbar spine per oncology's request and will need mild sedation with Ativan prior to performing these tests--> we were unable to get this done prior to discharge due to volume and they were not essential to be performed prior to discharge--> these all willneed to be done with and without contrast Day of Discharge: 08/16/22 Dietary and Speech Recommendations Dietitian Recommendations/Changes: Continue 1800 CCD diet to manage blood sugars. Will add Cardiac diet once PO intakes improve. RD will increase 120mL Glucerna supplement to 4x daily to provide supplemental energy. Discharge Plan Admission Admit Date/Time: 08/05/22 20:29 Attending Provider: Tamiko Quigley Primary Care Provider: Rudy Boyer Consulting Providers: Home Valverde; John Short; Home Miller; Filemon Coffman; Atul Quezada; Dann Linn; Floyd Kelley; Cindy Wyatt NP; Prem Toro Instructions Patient Instructions: PETE RN Thoracentesis Dc Discharge Orders/Prescriptions Prescriptions: No Action fexofenadine 180 mg tablet 180 mg PO DAILY fluoxetine 40 MG capsule 40 mg PO BID alendronate 70 MG tablet 70 mg PO SA Rx Instructions: unknown simvastatin 40 MG tablet 40 mg PO DAILY buspirone 7.5 MG tablet 15 mg PO BID oxybutynin chloride 5 MG tablet 10 mg PO DAILY glipizide 5 MG tablet 10 mg PO DAILY omeprazole 20 MG tablet,delayed release (DR/EC) 20 mg PO DAILY ergocalciferol (vitamin D2) 50,000 UNIT capsule 50,000 unit PO SA meloxicam 7.5 MG tablet 7.5 mg PO DAILY Qty: 30 0RF lisinopril 20 MG tablet 20 mg PO DAILY Qty: 30 0RF carvedilol 3.125 mg tablet 3.125 mg PO BID Qty: 90 3RF Rx Instructions: heart/ blood pressure Referrals / Follow Up: Rudy Boyer, ORESTES [Primary Care Provider] - 08/16/22 1512 <Electronically signed by Tamiko Quigley DO> Cosigner Signature (if applicable): CC: ORESTES Wyatt; WALLPAPER PRINTER HELPERAnneC Rudy Boyer; Dr. Filemon Coffman MD; Dr. Raúl DO; Dr. Home Valverde MD; Dr. Home Miller MD; Dr. Dann Linn MD; Dr. John Short DO; Dr. Prem Toro MD; Dr. Floyd Kelley MD~ [facility] Work Phone: [phone] Consult note Author Gilberto Galvez [facility] August 16, 2022 11:38am Note Date/Time August 16, 2022 11:38 am [facility] Medical Records Department [address] [place] [address] Consultation - Infectious Dx 08/16/22 1134 MR#: [id number] Acct: [id number] Name: DONNA MARSH Rep #:[id number] : 1955 66 From: Gilberto Galvez MD PCP: ORESTES Cano Status:ADM IN Location: [place] [id number] 1 Assessment & Plan Assessment/Plan (1) Pleural effusion: PLAN: Large left pleural effusion and underwent thoracentesis which was bloody fluid. Suspect the effusion developed secondary to her trauma with her fall andleft hip fracture that occurred roughly 10 days ago. Interestingly Prevotella isolated from the pleural fluid. We will treat the Prevotella with oral metronidazole 500 mg 3 times a day for 10 more days. In reviewing her most recent chest x-ray there is no residual significant effusion there that requiresany surgical intervention. HPI Consult Data Date of Consult: 08/16/22 HPI Narrative Reason for Consultation: Prevotella isolated from the left pleural effusion HPI Narrative: DONNA MARSH, is a 66 F who presents after a traumatic fall and left hip fracturethat required orthopedic repair of the left hip fracture. During her admission she was found to have a large left pleural effusion with and underwent diagnostic/therapeutic thoracentesis of the left pleural space. 900 cc of bloody fluid was removed. Pleural fluid grew out Prevotella species. Patient is currently on Unasyn and overall clinically stable. Follow-up chest x-ray personally reviewed shows improvement of the left pleural effusion and resolutionof any pleural disease. She is currently on nasal cannula O2. No pleuritic chest pain. No significant gastrointestinal distress. Patient is otherwise hemodynamically stable and tolerating Unasyn well. Patient was seen by pulmonary service on this admission. [facility] Medical History Anxiety Atrial fibrillation Back pain due to injury Bipolar disorder Dementia Depression Essential (primary) hypertension Former smoker GERD (gastroesophageal reflux disease) Hearing loss, right Hiatal hernia High cholesterol Hyperlipidemia Injury of head and neck Irritable bowel Migraines Nonobstructive atherosclerosis of coronary artery NSTEMI (non-ST elevated myocardial infarction) (01/06/18) Obesity Psoriatic arthritis Restless legs Sleep apnea Takotsubo syndrome Type 2 diabetes mellitus Home Medications alendronate 70 mg tablet 70 mg PO SA osteoporosis 01/06/18 [History Last Taken Unknown] buspirone 7.5 mg tablet 15 mg PO BID anxiety 01/06/18 [History Last Taken Unknown] fluoxetine 40 mg capsule 40 mg PO BID anxiety 01/06/18 [History Last Taken Unknown] glipizide 5 mg tablet 10 mg PO DAILY antidiabetic 01/06/18 [History Last Taken Unknown] omeprazole 20 mg tablet,delayed release 20 mg PO DAILY GERD 01/06/18 [History Last Taken Unknown] oxybutynin chloride 5 mg tablet 10 mg PO DAILY 01/06/18 [History Last Taken Unknown] simvastatin 40 mg tablet 40 mg PO DAILY Cholesterole 01/06/18 [History Last Taken Unknown] carvedilol 3.125 mg tablet 3.125 mg PO BID #90 tabs 07/10/18 [Rx Last Taken Unknown] ergocalciferol (vitamin D2) 1,250 mcg (50,000 unit) capsule 50,000 unit PO SA supplement 02/12/19 [History Last Taken Unknown] lisinopril 20 mg tablet 20 mg PO DAILY #30 tabs 02/15/19 [Rx Last Taken Unknown] meloxicam 7.5 mg tablet 7.5 mg PO DAILY #30 tabs 02/15/19 [Rx Last Taken Unknown] fexofenadine 180 mg tablet 180 mg PO DAILY 07/06/22 [History Last Taken Unknown] Allergy/AdvReac Type Severity Reaction Status Date / Time codeine Allergy Itching Verified 08/05/22 17:54 naproxen AdvReac Other Verified 08/05/22 17:54 Family History Mother Cancer skin Father Cancer prostate Surgical History History of back surgery History of carpal tunnel release of both wrists History of hysterectomy History of left heart catheterization (01/07/18) Social History Smoking Status: Former smoker how long ago did patient quit smokin years ago alcohol intake: never substance use type: does not use caffeine: Yes Type: carbonated beverages Number of servings: 1 ROS ROS Narrative As stated in history of present illness others negative Physical Exam Narrative Alert responsive does not appear toxic. Lungs are clear heart exam S1-S2 abdomen is obese but soft. Lab / Micro Data 08/16/22 05:15 08/16/22 05:15 Labs: Laboratory Results - last 24 hr 08/15/22 16:52: POC Glucose 200 H 08/15/22 22:21: POC Glucose 187 H 08/16/22 05:15: WBC 11.4 H, RBC 2.76 L, Hgb 8.4 L, Hct 26.0 L, MCV 94.2, MCH 30.4, MCHC 32.3, RDW Std Deviation 55.5 H, RDW Coeff of Gerhard 17.2 H, Plt Count 312, MPV 9.5, Immature Gran % (Auto) 1.200 H, Neut % (Auto) 69.7, Lymph % (Auto)19.3, Long % (Auto) 7.9, Eos % (Auto) 1.8, Baso % (Auto) 0.1, Absolute Neuts (auto) 8.0 H, Absolute Lymphs (auto) 2.20, Nucleated RBC % 0, Sodium 138, Potassium 3.3 L, Chloride 98, Carbon Dioxide 35.0 H, Anion Gap 5, BUN 20 H, Creatinine 0.87, Estim Creat Clear Calc 53.44, Est GFR (MDRD) Af Amer 83, Est GFR (MDRD) Non-Af 69, BUN/Creatinine Ratio 23.1 H, Glucose 165 H, Calcium 8.2 L 08/16/22 06:17: POC Glucose 162 H Micro: Microbiology 08/14/22 14:25 Fluid - Pleural (Lung) Gram Stain - Final 08/14/22 14:25 Fluid - Pleural (Lung) Body Fluid Culture - Preliminary No growth-Final to follow 08/14/22 14:25 Fluid - Pleural (Lung) Anaerobic Culture - Final Prevotella bivia Rhythm Strip Rhythm Strip: Sinus Rhythm Rate: 90 Ectopy: None Radiology Impression Chest X-Ray 08/16/22 07:19 IMPRESSION: Interval resolution of pulmonary vascular congestion. Stable minimal left pleural effusion. No definite right pleural effusion is identified. Mild improvement of discoid atelectasis within the right mid to lower lung. Stable infiltrates within the left lower lung. Electronically Signed: Luis Rider MD at 7:54 EDT , 08/16/22 1138 <Electronically signed by Gilberto Galvez MD> Cosigner Signature (if applicable): CC: WALLPAPER PRINTER HELPER-C Cindy Wyatt; WALLPAPER PRINTER HELPER-C Rudy Boyer; Dr. Filemon Coffman MD; Dr. Raúl DO; Dr. Home Valverde MD; Dr. Home Miller MD; Dr. Dann Linn MD; Dr. John Short DO; Dr. Prem Toro MD; Dr. Floyd Kelley MD~ Signed [facility] Work Phone: [phone]) 717-243907-04-2023 Consult note Author [facility] August 15, 2022 4:25pm Note Date/Time August 15, 2022 3:48p [facility] Medical Records Department [address] [place] [address] Consultation - Chief Dog License Inspector 08/15/22 1524 MR#: [id number] Acct: [id number] Name: DONNA MARSH Rep #:[id number] : 1955 66 From: Dann Linn MD PCP: ORESTES Cano Status:ADM IN [facility] [address] Dann Linn MD on 08/15/22 at 1625 Addendum Patient is significantly fluid overloaded after her surgery. -Recommend Lasix 40 mg IV twice daily for 2 days, then p.o. once or twice dailyuntil she diuresis down to her baseline weight. - Mobilize - Compression stockings on right lower extremity 08/15/22 1625<Electronically signed by Dann Linn MD> Cosigner Signature (if applicable): cc: WALLPAPER PRINTER HELPER-C Cindy Wyatt; WALLPAPER PRINTER HELPER-C Rudy Boyer; Dr. Filemon Coffman MD; Dr. Raúl DO; Dr. Home Valverde MD; Dr. Home Miller MD; Dr. Dann Linn MD; Dr. John Short DO; Dr. Floyd Kelley MD ~* Signed Assessment & Plan Assessment/Plan (1) Pleural effusion: PLAN: I am favoring mostly a bloody traumatic L pleural effusion in a woman on chronic aspirin, since she fell onto and complained of pain in her left chest, left hip and neck. It may be a complication of aspiration, and this patient doesadmit to aspiration occasionally. The Prevotella bivia anerobe found in the pleural fluid culture (usually a vulvovaginal and/or oral anerobe) may be a contaminant, and would be covered by Unasyn (and augmentin). Since the patient is improving clinically, I recommend: - continue Unasyn/Augmentin x 8 days total (~5 days past the day she became afebrile). - repeat the CXR upright every other day x 2-3 to assure the effusion does not reaccumulate; if it does, re-tap to dry, and send pleural fluid at a minimum forrepeat C&S, CBC diff, glucose, pH (if available), cytology. - no indication for chest tube; she is improving. - avoid ASA, NSAID and anticoagulation for ~1 week. - fall precautions. (2) Intertrochanteric fracture of left femur: PLAN: agree with rehab; patient is still largely bedbound. HPI Consult Data Date of Consult: 08/15/22 HPI Narrative HPI Narrative: DONNA MARSH, is a 66 F who presented for admission 1 week ago after a mechanicalfall after tripping over a bag of mulch in her yard, sustaining intertrochanteric fracture of left femur. The remainder of the trauma survey did not show new rib fractures only old rib fractures on the right from 2006 when she fell off a horse and known vertebral compression fractures from [address] [facility] also showed large hematoma behind the hip at the gluteus, extending to the soft tissues of the back. She had ORIF with dynamic nail by orthopedics. She took an aspirin a day up through the date of her fall. Since her admission, she developed a right pleural effusion. This was tapped on08/14/2022 and was approximately 700 cc of bloody, exudative, with elevated white count, normal glucose, neutrophilia, but appeared to be likely due to being a traumatic effusion. Cytology is pending. Notably, on August 12, she began to feelmore short of breath and feverish. This resolved yesterday after the fluid was removed. Her white count peaked at 22,000 on August 13, and is now nearly back to normal at 14,000. She denied sick contacts, has no history of COVID or COVID shots. Denies flu shots. She has not gotten out of bed much which she states is because of charley horses. She has a history of falling occasionally and uses a cane to walk. She lives at home with her son and . Past medical history is reviewed. She is a smoker with no history of COPD or lung disease. She had a traumatic rib fractures 2005, denies DVT or PE, does have aspiration and falls occasionally. [facility] was asked to comment on whether she has empyema. Past family social history, medications allergies were reviewed. 12 system review is negative except as above. [facility] Medical History Anxiety Atrial fibrillation Back pain due to injury Bipolar disorder Dementia Depression Essential (primary) hypertension Former smoker GERD (gastroesophageal reflux disease) Hearing loss, right Hiatal hernia High cholesterol Hyperlipidemia Injury of head and neck Irritable bowel Migraines Nonobstructive atherosclerosis of coronary artery NSTEMI (non-ST elevated myocardial infarction) (01/06/18) Obesity Psoriatic arthritis Restless legs Sleep apnea Takotsubo syndrome Type 2 diabetes mellitus Home Medications alendronate 70 mg tablet 70 mg PO SA osteoporosis 01/06/18 [History Last Taken Unknown] buspirone 7.5 mg tablet 15 mg PO BID anxiety 01/06/18 [History Last Taken Unknown] fluoxetine 40 mg capsule 40 mg PO BID anxiety 01/06/18 [History Last Taken Unknown] glipizide 5 mg tablet 10 mg PO DAILY antidiabetic 01/06/18 [History Last Taken Unknown] omeprazole 20 mg tablet,delayed release 20 mg PO DAILY GERD 01/06/18 [History Last Taken Unknown] oxybutynin chloride 5 mg tablet 10 mg PO DAILY 01/06/18 [History Last Taken Unknown] simvastatin 40 mg tablet 40 mg PO DAILY Cholesterole 01/06/18 [History Last Taken Unknown] carvedilol 3.125 mg tablet 3.125 mg PO BID #90 tabs 07/10/18 [Rx Last Taken Unknown] ergocalciferol (vitamin D2) 1,250 mcg (50,000 unit) capsule 50,000 unit PO SA supplement 02/12/19 [History Last Taken Unknown] lisinopril 20 mg tablet 20 mg PO DAILY #30 tabs 02/15/19 [Rx Last Taken Unknown] meloxicam 7.5 mg tablet 7.5 mg PO DAILY #30 tabs 02/15/19 [Rx Last Taken Unknown] fexofenadine 180 mg tablet 180 mg PO DAILY 07/06/22 [History Last Taken Unknown] Allergy/AdvReac Type Severity Reaction Status Date / Time codeine Allergy Itching Verified 08/05/22 17:54 naproxen AdvReac Other Verified 08/05/22 17:54 Family History Mother Cancer skin Father Cancer prostate Surgical History History of back surgery History of carpal tunnel release of both wrists History of hysterectomy History of left heart catheterization (01/07/18) Social History Smoking Status: Former smoker how long ago did patient quit smokin years ago alcohol intake: never substance use type: does not use caffeine: Yes Type: carbonated beverages Number of servings: 1 ROS ROS Narrative 10 system review was negative except as above. Medical Records Data Attestation: I reviewed the patient's medical records Lab / Micro Data Attestation: I reviewed the patient's lab results. 08/15/22 04:20 08/15/22 04:20 Labs: Laboratory Results - last 24 hr 08/13/22 14:45: Fluid Glucose 149 H, Fluid Total Protein 2.6, Fluid LDH 475 08/14/22 14:24: Fluid Source THORACENTESIS, Fluid Color RED, Fluid Appearance TURBID, Fluid WBC 4.925, Fluid RBC 2.002, Fluid Tot Cell Count 5.366 H, Fld Polynuclear WBCs # 3.936, Fld Polynuclear WBCs % 79.9, Fluid Mononuclear WBCs 0.989, Fld Mononuclear WBCs % 20.1, Fluid Neutrophils 57, Fluid Lymphocytes 10, Fluid Monocytes 24, Fluid Macrophages 9, Fl Pathologist Comment May follow, Fluid Comment 2 SEE COMMENT 08/14/22 16:51: POC Glucose 145 H 08/14/22 22:34: POC Glucose 169 H 08/15/22 04:20: WBC 14.6 H, RBC 2.89 L, Hgb 8.7 L, Hct 27.0 L, MCV 93.4, MCH 30.1, MCHC 32.2 D, RDW Std Deviation 49.4 H, RDW Coeff of Gerhard 16.3 H, Plt [id number], MPV 9.9, Immature Gran % (Auto) 1.500 H, Neut % (Auto) 77.7 H, Lymph % (Auto) 12.8 L, Long % (Auto) 6.5, Eos % (Auto) 1.4, Baso % (Auto) 0.1, Absolute Neuts (auto) 11.3 H, Absolute Lymphs (auto) 1.86, Nucleated RBC % 0.1, Sodium 139, Potassium 3.0 L, Chloride 102, Carbon Dioxide 31.0, Anion Gap 6, BUN 17, Creatinine 0.85, Estim Creat Clear Calc 54.70, Est GFR (MDRD) Af Amer 85, Est GFR (MDRD) Non-Af 71, BUN/Creatinine Ratio 20.0, Glucose 157 H, Calcium 8.3 L, Phosphorus 2.5, Magnesium 1.2 L, Total Bilirubin 1.60 H, AST 18, ALT 16, Alkaline Phosphatase 75, Total Protein 5.6 L, Albumin 2.4 L, Globulin 3.2, Albumin/Globulin Ratio 0.8 L 08/15/22 06:29: POC Glucose 168 H 08/15/22 11:04: POC Glucose 183 H Micro: Microbiology 08/14/22 14:25 Fluid - Pleural (Lung) Gram Stain - Final 08/14/22 14:25 Fluid - Pleural (Lung) Body Fluid Culture - Preliminary No growth-Final to follow 08/14/22 14:25 Fluid - Pleural (Lung) Anaerobic Culture - Final Prevotella bivia Rhythm Strip Rhythm Strip: Sinus Rhythm Rate: 90 Ectopy: None Radiology Impression Chest X-Ray 08/15/22 07:15 IMPRESSION: 1. No change from XR Chest 2 Views with report dated 08/14/2022 3:09 PM. 2. Vascular congestion/fluid overload with basilar infiltrates and small effusions. Electronically Signed: Mckinley Gutierrez (Brooks), at 7:45 EDT Reading Location ID and State: [facility] / [place] , Service support , Charges/Coding Visit Charges Inpatient E&M: 54129 Init Hosp L3 08/15/22 1621 <Electronically signed by Dann Linn MD> Cosigner Signature (if applicable): CC: ORESTES Wyatt; WALLPAPER PRINTER HELPER-C Rudy Boyer; Dr. Filemon Coffman MD; Dr. Raúl DO; Dr. Home Valverde MD; Dr. Home Miller MD; Dr. Dann Linn MD; Dr. John Short DO; Dr. Floyd Kelley MD~ Signed [facility] Work Phone: 1(596) 180-434307-04-2023 Progress note Author Tamiko [facility] August 15, 2022 1:14pm Note Date/Time August 15, 2022 1:09p [facility] Medical Records Department [address] [place] [address] Progress Note - Hospitalist 08/15/22 1301 MR#: [id number] Acct: [id number] Name: DONNA MARSH Rep #:[id number] : 1955 66 From: Tamiko Quigley DO PCP: ORESTES Cano Status:ADM IN Location: [place] [id number]- [id number] Reason for Visit Reason for Visit: Fall with left hip pain Subjective Subjective Patient is coherent and alert and oriented x4 today. Family at bedside. Daughter reports that her sister had bilateral mastectomies due to to separate types of breast cancer diagnosed in each breast. She reports her mother's not had a mammogram ever and has not really kept up on any chronic preventative medical screening or testing. They would like to follow-up with Dr. Akshat leger if possible. I will call him tomorrow and discussed the case with himprior to discharge. Patient is just complaining of some generalized body achingtoday that is consistent with her chronic pain. No issues overnight and mental status is much improved. Objective Data Objective Data Vital Signs: Vital Signs Temp Pulse Resp BP Pulse Ox O2 Del Method O2 Flow Rate 98.0 F 89 14 150/67 H 93 Nasal Cannula 4 08/15/22 09:05 08/15/22 09:05 08/15/22 09:05 08/15/22 09:05 08/15/22 09:05 08/15/22 09:23 08/15/22 09:23 Oxygen Flow Rate (L/min) [4] 4 Oxygen Flow Rate (L/min) [3] 4 Oxygen Flow Rate (L/min) [2] 4 Oxygen Flow Rate (L/min) [1 ( 4 Initial Baseline)] Oxygen Flow Rate (L/min) 4 Oxygen Delivery Method [4] Nasal Cannula Oxygen Delivery Method [3] Nasal Cannula Oxygen Delivery Method [2] Nasal Cannula Oxygen Delivery Method [1 ( Nasal Cannula Initial Baseline)] Oxygen Delivery Method Nasal Cannula Weight: 79.6 kg Body Mass Index (BMI) 30.1 Intake & Output: Intake and Output for Last 24 Hours 08/13/22 08/14/22 08/15/22 23:59 23:59 23:59 Intake Total 1641.67 / 1761.67 1880 / 1880 180.42 / 180.42 Output Total 550 / 1450 5450 / 5450 2100 / 2100 Balance 1091.67 / 311.67 -3570 / -3570 -1919.58 / -1919.58 Lab / Micro Data 08/15/22 04:20 08/15/22 04:20 Labs: Laboratory Results - last 24 hr 08/13/22 14:45: Fluid Glucose 149 H, Fluid Total Protein 2.6, Fluid LDH 475 08/14/22 14:24: Fluid Source THORACENTESIS, Fluid Color RED, Fluid Appearance TURBID, Fluid WBC 4.925, Fluid RBC 2.002, Fluid Tot Cell Count 5.366 H, Fld Polynuclear WBCs # 3.936, Fld Polynuclear WBCs % 79.9, Fluid Mononuclear WBCs 0.989, Fld Mononuclear WBCs % 20.1, Fluid Neutrophils 57, Fluid Lymphocytes 10, Fluid Monocytes 24, Fluid Macrophages 9, Fl Pathologist Comment May follow, Fluid Comment 2 SEE COMMENT 08/14/22 16:51: POC Glucose 145 H 08/14/22 22:34: POC Glucose 169 H 08/15/22 04:20: WBC 14.6 H, RBC 2.89 L, Hgb 8.7 L, Hct 27.0 L, MCV 93.4, MCH 30.1, MCHC 32.2 D, RDW Std Deviation 49.4 H, RDW Coeff of Gerhard 16.3 H, Plt [id number], MPV 9.9, Immature Gran % (Auto) 1.500 H, Neut % (Auto) 77.7 H, Lymph % (Auto) 12.8 L, Long % (Auto) 6.5, Eos % (Auto) 1.4, Baso % (Auto) 0.1, Absolute Neuts (auto) 11.3 H, Absolute Lymphs (auto) 1.86, Nucleated RBC % 0.1, Sodium 139, Potassium 3.0 L, Chloride 102, Carbon Dioxide 31.0, Anion Gap 6, BUN 17, Creatinine 0.85, Estim Creat Clear Calc 54.70, Est GFR (MDRD) Af Amer 85, Est GFR (MDRD) Non-Af 71, BUN/Creatinine Ratio 20.0, Glucose 157 H, Calcium 8.3 L, Phosphorus 2.5, Magnesium 1.2 L, Total Bilirubin 1.60 H, AST 18, ALT 16, Alkaline Phosphatase 75, Total Protein 5.6 L, Albumin 2.4 L, Globulin 3.2, Albumin/Globulin Ratio 0.8 L 08/15/22 06:29: POC Glucose 168 H 08/15/22 11:04: POC Glucose 183 H Micro: Microbiology 08/14/22 14:25 Fluid - Pleural (Lung) Gram Stain - Preliminary 08/14/22 14:25 Fluid - Pleural (Lung) Body Fluid Culture - Preliminary No growth-Final to follow 08/14/22 14:25 Fluid - Pleural (Lung) Anaerobic Culture - Final Prevotella bivia 08/07/22 06:25 Blood Culture (Wb) - Right Wrist Blood Culture - Final No growth in 5 days. 08/07/22 06:20 Blood Culture (Wb) - Anticubital Right Blood Culture - Final No growth in 5 days. 08/07/22 08:45 Urine, Random Urine Culture - Final Culture exhibits no growth. Radiography Diagnostic Testing: Radiology Impression Thoracentesis Ultrasound 08/13/22 19:01 IMPRESSION: Ultrasound-guided left thoracentesis. Electronically Signed: Christopher Jackson MD at 15:18 EDT , Chest X-Ray 08/14/22 14:30 IMPRESSION: No evidence of pneumothorax following the left thoracentesis. Residual pleural-parenchymal changes persist at the lung bases. Electronically Signed: Christopher Jackson MD at 15:10 EDT , Chest X-Ray 08/15/22 07:15 IMPRESSION: 1. No change from XR Chest 2 Views with report dated 08/14/2022 3:09 PM. 2. Vascular congestion/fluid overload with basilar infiltrates and small effusions. Electronically Signed: Mckinley Gutierrez (Brooks), at 7:45 EDT , Rhythm Strip Rhythm Strip: Sinus Rhythm Rate: 90 Ectopy: None Physical Exam Const alert, oriented x3, no apparent distress, average body habitus, healthy appearing and well nourished Constitutional Narrative: Upper middle-aged, obese, white female, lying in bed, sister and great great niece at bedside, patient appears comfortable nontoxic, interacts appropriately and mental status is good HEENT normocephalic, head/scalp atraumatic and moist oral mucous membranes HEENT Narrative: Dentition is poor, Mallampati is 2, no thrush Resp normal respiratory effort, no retractions, no use of accessory muscles and clearto auscultation bilaterally Resp Narrative: Good aeration bilateral bases with much improved aeration on the right Auscultation: Negative for rales, rhonchi or wheezes Cardio regular rate, regular rhythm, S1 normal heart sound, S2 normal heart sound, no murmurs, no rub, no gallops and no clicks GI normal to inspection, nondistended, normoactive bowel sounds, soft to palpation,non-tender and non-distended Extremity no clubbing, cyanosis or edema Extremity Narrative: Significant ecchymosis at the left lateral leg down the posterior lateral aspectof her left thigh to about the knee area, Neuro oriented x3, moves all extremities and no focal motor deficits Neuro Narrative: Able to move all extremities however decreased movement left lower extremity secondary to pain Sensorium / Orientation: awake, alert, oriented to person, oriented to place andoriented to time Speech: speech normal Psych affect normal Psych Narrative: Appropriately interactive, appears comfortable, eye contact is good, no signs ofdepression Assessment & Plan Assessment/Plan (1) Toxic metabolic encephalopathy: (2) Intertrochanteric fracture of left femur: (3) Lytic bone lesions on xray: (4) Pleural effusion: (5) Shortness of breath: (6) Acute blood loss anemia: (7) Hypoxia: PLAN: Plan Acute left intertrochanteric fracture -? related to osteoporosis versus pathologic fracture--> unclear at this time -Postop day 9 CMN -Continue as needed Nubain -Continue as needed hydrocodone -As needed Tylenol -Weightbearing as tolerated Multiple lytic lesions -MRI brain unremarkable/CT abdomen pelvis with contrast not assisting with diagnosing any primary -I discussed the case with interventional radiology and they are unable to do any biopsies on lytic lesions due to location -No cranial lytic lesions -Thoracentesis with cytology pending -CA 19-9, CEA, CA125--> all pending -Patient needs outpatient mammogram -We will refer to oncology as an outpatient Left-sided Prevotella empyema -Thoracentesis done on 08/14/2022 and fluid is growing Prevotella -Lights criteria consistent with exudative effusion -Pathology pending -Continue Lasix as ordered -We will hold off on echocardiogram -Continue to microbials but transition from Zosyn to Unasyn -Consult pulmonary medicine -Consult infectious disease Hypoxia/shortness of breath -Likely related to the above pleural effusion -Currently on 4 L -Wean oxygen as able -Kenneth chest x-ray from this morning looks improved and stable when compared to postthoracentesis x-ray -Patient was placed on Zosyn and will continue this for now until infectious work-up can be completed Acute blood loss anemia -Patient with large hematoma noted postoperatively and CT of the hip does show hematoma -Ecchymotic area over left hip -Hemoglobin remained stable -Restart subcu Lovenox -CBC in a.m. Leukocytosis -Trending down -On Zosyn and transition to Unasyn -Secondary to the above DM-2 -Continue SSI -Accu-Cheks as ordered -Hold home oral agents Hypertension -Continue home lisinopril -Continue home carvedilol Hyperlipidemia -Continue home statin Osteoporosis -Continue vitamin D supplementation and Fosamax CKD stage IIIb -Renal function is completely normalized at 0.67 -Suspect patient may be slightly volume overloaded and this is not her baseline renal function -Continue Lasix -Repeat BMP in a.m. GERD -Continue home PPI Toxic/metabolic encephalopathy -Resolved -Likely related to acute infection and medications Depression/anxiety -Continue home fluoxetine -Continue home BuSpar Urinary incontinence -Continue home oxybutynin DVT prophylaxis -Restart subcu Lovenox CODE STATUS -Full code Disposition: Pre-CERT to the [facility] has been obtained. Will await input from pulmonary medicine infectious disease tomorrow 08/16/2022 with regards to pleural fluid findings. Plan is outpatient follow-up with Dr. Oden after discharge with regards to her lytic lesions. Hopeful for discharge in the next 24 to 48 hours Charges/Coding Visit Charges Inpatient E&M: 03343 Subs Hosp L2 08/15/22 1314 <Electronically signed by Tamiko Quigley DO> Cosigner Signature (if applicable): CC: ~ Signed [facility] Work Phone: [phone]) 798-395607-03-2023 Consult note Author Home Miller [facility] August 14, 2022 6:11pm Note Date/Time August 14, 2022 5:51p m [facility] [address] [place] [address] Consultation - Oncology IP 08/14/22 9645 MR#: [id number] Acct: [id number] Name: DONNA MARSH Rep #:[id number] : 1955 66 From: Home Miller MD PCP: ORESTES Cano Status:AD[id number] Assessment & Plan Assessment/Plan (1) Pleural effusion: Status: Acute Code(s): J90 - Pleural effusion, not elsewhere classified Plan: Bilateral pleural effusions, status post thoracentesis. Will await cytology to determine if it is malignant. Continue supportive care. (2) Compression fracture: Status: Acute Plan: Some of these compression fractures are old and may be related to osteoporosis. Since CT does not show obvious primary, will await thoracentesis with cytology to determine if this is malignant. Continue supportive care, we will follow with further suggestions when pleural fluid cytology becomes available. Thank you. HPI Consult Data Date of Service:: 08/14/22 PCP / Referring Provider: ORESTES Cano Attending: Dr. Tamiko Quigley DO Chief Complaint Chief Complaint: Asked to see pt with compression fractures of vertebrae. History of Present Illness History of Present Illness: 66-year-old woman with history of multiple compression fractures , foot drop wasadmitted to the ER with after a fall. She was found to have into trochanteric fracture of the left hip. She had IM nailing on 08/06/2022. CT of the chest on 09/06/2022 showed bilateral pleural effusion with degenerative spine changes, multiple sclerotic and lytic lesions. CT of the abdomen and pelvis on 08/14/2022 showed multiple compression fractures changes suggestive of metastatic disease in thoracic and lumbar vertebrae, no obvious primary cancer. She had thoracentesis done on the left side this afternoon. she is now sedated. Advanced Directives Power of Terminal Worker: No Living Will: No PFSH Medical History (Updated 08/14/22 @ 18:[address] Home Miller MD) Anxiety Atrial fibrillation Back pain due to injury Bipolar disorder Dementia Depression Essential (primary) hypertension Former smoker GERD (gastroesophageal reflux disease) Hearing loss, right Hiatal hernia High cholesterol Hyperlipidemia Injury of head and neck Irritable bowel Migraines Nonobstructive atherosclerosis of coronary artery NSTEMI (non-ST elevated myocardial infarction) (01/06/18) Obesity Psoriatic arthritis Restless legs Sleep apnea Takotsubo syndrome Type 2 diabetes mellitus Home Medications alendronate 70 mg tablet 70 mg PO SA osteoporosis 01/06/18 [History Last Taken Unknown] buspirone 7.5 mg tablet 15 mg PO BID anxiety 01/06/18 [History Last Taken Unknown] fluoxetine 40 mg capsule 40 mg PO BID anxiety 01/06/18 [History Last Taken Unknown] glipizide 5 mg tablet 10 mg PO DAILY antidiabetic 01/06/18 [History Last Taken Unknown] omeprazole 20 mg tablet,delayed release 20 mg PO DAILY GERD 01/06/18 [History Last Taken Unknown] oxybutynin chloride 5 mg tablet 10 mg PO DAILY 01/06/18 [History Last Taken Unknown] simvastatin 40 mg tablet 40 mg PO DAILY Cholesterole 01/06/18 [History Last Taken Unknown] carvedilol 3.125 mg tablet 3.125 mg PO BID #90 tabs 07/10/18 [Rx Last Taken Unknown] ergocalciferol (vitamin D2) 1,250 mcg (50,000 unit) capsule 50,000 unit PO supplement 02/12/19 [History Last Taken Unknown] lisinopril 20 mg tablet 20 mg PO DAILY #30 tabs 02/15/19 [Rx Last Taken Unknown] meloxicam 7.5 mg tablet 7.5 mg PO DAILY #30 tabs 02/15/19 [Rx Last Taken Unknown] fexofenadine 180 mg tablet 180 mg PO DAILY 07/06/22 [History Last Taken Unknown] Allergy/AdvReac Type Severity Reaction Status Date / Time codeine Allergy Itching Verified 08/05/22 17:54 naproxen AdvReac Other Verified 08/05/22 17:54 Family History Mother Cancer skin Father Cancer prostate Surgical History History of back surgery History of carpal tunnel release of both wrists History of hysterectomy History of left heart catheterization (01/07/18) Social History Smoking Status: Former smoker how long ago did patient quit smokin years ago alcohol intake: never substance use type: does not use caffeine: Yes Type: carbonated beverages Number of servings: 1 Physical Exam Narrative Elderly woman lying in bed, lethargic, patient cannot give history Neck Neck Narrative: Bruise L posterior neck. Lymph Lymphatic: no lymphadenopathy noted Resp normal respiratory effort and clear to auscultation bilaterally Cardio regular rate, regular rhythm, S1 normal heart sound and S2 normal heart sound GI normal to inspection, nondistended, normoactive bowel sounds Extremity Extremity Narrative: bruise L leg. Neuro Neuro Narrative: Patient cannot give history. Vital Signs Temperature 97.8 F 08/14/22 09:00 Temperature Source Oral 08/14/22 09:00 Pulse Rate 93 08/14/22 15:05 Pulse Strength Normal (2+) 08/14/22 10:00 Respiratory Rate 28 H 08/14/22 15:05 Respiratory Effort Normal, Non-Labored 08/14/22 15:05 Respiratory Depth Shallow 08/14/22 10:00 Respiratory Pattern Normal 08/14/22 15:05 Blood Pressure 173/81 H 08/14/22 15:05 Blood Pressure Mean 112 08/14/22 09:00 Blood Pressure Source Monitor 08/14/22 09:00 Blood Pressure Position Semi-Fowlers 08/14/22 09:00 Blood Pressure Location Left Arm 08/14/22 09:00 Pulse Ox 93 08/14/22 09:00 Oxygen Delivery Method Nasal Cannula 08/14/22 15:05 Oxygen Flow Rate (L/min) 4 08/14/22 15:05 Laboratory Results - last 24 hr 08/13/22 14:45: Fluid Glucose 149 H, Fluid Total Protein 2.6, Fluid LDH 475 08/13/22 17:29: POC Glucose 207 H 08/13/22 18:41: Urine Color Yellow, Urine Clarity Clear, Urine pH 6.0, Ur Specific [place] 1.015, Urine Protein 15 H, Urine Glucose (UA) 50 H, Urine Ketones Negative, Urine Occult Blood Negative, Urine Nitrite Negative, Urine Bilirubin Negative, Urine Urobilinogen Normal, Ur Leukocyte Esterase 25 H, Urine RBC 0 SEEN, Urine WBC 0-5 SEEN, Ur Squamous Epith Cells 0-5 SEEN, Ur Renal Epithelial Cell 0-5 SEEN, Amorphous Sediment 1+ URATE, Urine Bacteria RARE, Urine Mucus 0 SEEN 08/13/22 19:33: PT 14.1, INR 1.1, APTT 31.5, Alkaline Phosphatase 71, Lactate Dehydrogenase 280 H, Total Protein 5.1 L, Globulin 2.8, Albumin/Globulin Ratio 0.8 L 08/13/22 21:46: POC Glucose 174 H 08/14/22 04:27: WBC 18.6 H, RBC 2.80 L, Hgb 8.3 L, Hct 27.3 L, MCV 97.5, MCH 29.6, MCHC 30.4 L, RDW Std Deviation 51.7 H, RDW Coeff of Gerhard 16.0 H, Plt Count 271, MPV 9.8, Immature Gran % (Auto) 2.500 H, Neut % (Auto) 80.8 H, Lymph % (Auto) 8.2 L, Long % (Auto) 6.6, Eos % (Auto) 1.7, Baso % (Auto) 0.2, Absolute Neuts (auto) 15.1 H, Absolute Lymphs (auto) 1.52, Nucleated RBC % 0.1, Sodium 139, Potassium 3.5, Chloride 109 H, Carbon Dioxide 27.0, Anion Gap 3 L, BUN 18, Creatinine 0.67, Estim Creat Clear Calc 46.50, Est GFR (MDRD) Af Amer 112, Est GFR (MDRD) Non-Af 93, BUN/Creatinine Ratio 26.9 H, Glucose 160 H, Calcium 8.2 L,Total Bilirubin 1.00, Direct Bilirubin 0.36 H, AST 23, ALT 16, Alkaline Phosphatase 69, Total Protein 5.3 L, Albumin 2.4 L, Globulin 2.9 08/14/22 06:22: POC Glucose 143 H 08/14/22 08:12: POC Glucose 161 H 08/14/22 11:20: POC Glucose 180 H 08/14/22 14:24: Fluid Source THORACENTESIS, Fluid Color RED, Fluid Appearance TURBID, Fluid WBC 4.925, Fluid RBC 2.002, Fluid Tot Cell Count 5.366 H, Fld Polynuclear WBCs # 3.936, Fld Polynuclear WBCs % 79.9, Fluid Mononuclear WBCs 0.989, Fld Mononuclear WBCs % 20.1, Fluid Neutrophils 57, Fluid Lymphocytes 10, Fluid Monocytes 24, Fluid Macrophages 9, Fl Pathologist Comment May follow, Fluid Comment 2 SEE COMMENT 08/14/22 16:51: POC Glucose 145 H Microbiology 08/14/22 14:25 Fluid - Pleural (Lung) Gram Stain - Preliminary Diagnostic Data Ribs w/Chest X-Ray 08/05/22 18:05 IMPRESSION: Old right rib fractures. Electronically Signed: Keaton PinedaDO at 20:07 EDT , Cervical Spine CT 08/05/22 18:20 IMPRESSION: Degenerative changes changes and discogenic disease as noted of the cervical spine. Electronically Signed: Keaton PinedaDO at 18:54 EDT , Hip/Pelvis X-Ray 08/06/22 06:30 IMPRESSION: Intraoperative images obtained for hardware localization. Electronically Signed: Fátima Bucio MD at 23:57 EDT , Brain CT 08/07/22 04:53 IMPRESSION: Negative Brain CT without contrast. Electronically Signed: Trevor Farmer MD at 5:20 EDT , ADDENDUM: 08/07/22 0529 IMPRESSION: Negative Brain CT without contrast. N.B. : The above Results were Read Back by Trevor Farmer MD to Home Valverde MD, and understanding confirmed on 08/07/2022 05:23:01 (ET). Electronically Signed: Trevor Farmer MD at 5:20 EDT , ADDENDUM: 08/07/22 0536 IMPRESSION: Negative Brain CT without contrast. N.B. : The above Results were Read Back by Trevor Farmer MD to Home Valverde MD, and understanding confirmed on 08/07/2022 05:29:17 (ET). Electronically Signed: Trevor Farmer MD at 5:20 EDT , Head/Neck CTA 08/07/22 05:47 IMPRESSION: No hemodynamically significant stenosis in the main intracranial arteries are in the arteries of neck. Electronically Signed: Trevor Farmer MD at 6:23 EDT , ADDENDUM: 08/07/22 0736 IMPRESSION: No hemodynamically significant stenosis in the main intracranial arteries are in the arteries of neck. N.B. : The above Results were Read Back by rTevor Farmer MD to Home Valverde and understanding confirmed on 08/07/2022 07:29:46 (ET). Electronically Signed: Trevor Farmer MD at 6:23 EDT , Brain MRI 08/07/22 06:47 IMPRESSION: 1. No MRI evidence of acute or subacute ischemic infarct. 2. Limited study was performed without FLAIR sequence for stroke evaluation. Electronically Signed: Adria Feliz MD at 11:36 EDT , Lower Extremity CT 08/07/22 13:30 IMPRESSION: Osteopenia with postsurgical changes dynamic hip screw placement. Impacted comminuted intertrochanteric fracture with no callus formation. Soft tissue mass adjacent to the proximal femur extending proximally behind the gluteal musculature compatible with hematoma. Electronically Signed: Ajit Salcido MD at 14:26 EDT , Chest CT 08/13/22 15:32 IMPRESSION: Cardiomegaly with pulmonary edema, small pericardial [...] with and without contrast for further evaluation. Electronically Signed: Gallito Crisostomo MD at 17:25 EDT , ADDENDUM: 08/13/22 1809 IMPRESSION: Cardiomegaly with pulmonary edema, small pericardial [...] with and without contrast for further evaluation. N.B. : Mery Valdes RN, confirmed on 08/13/2022 18:02:56 (ET) that the healthcare facility has received the radiology report. Electronically Signed: Gallito Crisostomo MD at 17:25 EDT , Thoracentesis Ultrasound 08/13/22 19:01 IMPRESSION: Ultrasound-guided left thoracentesis. Electronically Signed: Christopher Jackson MD at 15:18 EDT , Abdomen/Pelvis CT 08/14/22 07:51 IMPRESSION: Metastatic deposits in the visualized thoracic and lumbar vertebrae with multiple compression fractures. Bilateral renal cysts. Findings suggestive of postoperative changes in the soft tissues overlying the lower left subcutaneous tissues extending to the region of the left hip joint. Bilateral pleural effusions left greater than right with underlying infiltration and/or atelectasis. Electronically Signed: Christopher Jackson MD at 11:21 EDT , Chest X-Ray 08/14/22 14:30 IMPRESSION: No evidence of pneumothorax following the left thoracentesis. Residual pleural-parenchymal changes persist at the lung bases. Electronically Signed: Christopher Jackson MD at 15:10 EDT , Charges/Coding Visit Charges Office Visits / Consults: [id number] IP Consult L3 08/14/22 1811 <Electronically signed by Home Miller MD> CC: ORESTES Boyer; Dr. Home Valverde MD; Dr. Home Miller MD; Dr. John Short, DO ~ Signed [facility] Work Phone: [phone]) 852-826707-03-2023 Progress note Author Tamiko Quigley [facility] August 14, 2022 3:04pm Note Date/Time August 14, 2022 3:04p m [facility] [address] [place] [address] Progress Note - Hospitalist 08/14/22 1441 MR#: [id number] Acct: [id number] Name: DONNA MARSH Rep #:[id number] : 1955 66 From: Tamiko Quigley DO PCP: ORESTES Cano Status:ADM IN Location: [place] [id number] Reason for Visit Reason for Visit: Fall with left hip pain Subjective Subjective Mrs. Marsh is a 66-year-old white female who presented to the emergency department at [facility] on 08/05/2022 after a fall related to her left foot drop that was mechanical in nature. She indicated she landed on her left side and had excruciating left lower extremity pain from her hip to herknee. Imaging revealed a left intertrochanteric fracture patient was taken to the OR on 08/06/2022 at which time a centimeter and was placed. The patient doeshave a known history of osteoporosis with previous vertebral compression fractures and kyphoplasty. She is on Fosamax and vitamin D supplementation at baseline. Stroke alert was called on 08/07/2022 as patient was having nonsensical conversation. Her hemoglobin dropped from 12.4-7.7 the day previous. Patient was evaluated by the stroke neurologist with initial NIH was 12. CT of the head was unremarkable. CTA of the head and neck showed no acute LVO and MRI was performed and showed no stroke. During her stay she had increasing confusion and her IV narcotics were changed to IV Toradol and some Nubain which she received to respond best to. Her mental status did return backto baseline per discussion with family. On the a.m. of 08/13/2022 her white counthad trended up and a chest x-ray and a UA was performed UA was not consistent with infection however chest x-ray demonstrated what appeared to be a large leftpleural effusion and therefore CT of her chest was performed. CT of her chest showed a small right pleural effusion and a large left pleural effusion. The patient was requiring supplemental oxygen at [address] also reported multiple osseous lytic lesions in the thoracic and lumbar spine as well as the ribs. Interestingly, CT of her head that was performed prior to surgery did not show any lytic lesions there. Further work-up was recommended. The case was discussed with the patient's daughter with regards to the findings and a thoracentesis was ordered and pending. I evaluated the patient on the a.m. of 08/14/2022 and family was at bedside. Family indicated that her mental status overall is much improved. She was complaining of bilateral lower extremity posterior leg pain. She has had randomdiffuse pain complaints throughout her stay. It does appear that the Nubain andhydrocodone seem to help her. Objective Data Objective Data Vital Signs: Vital Signs Temp Pulse Resp BP Pulse Ox O2 Del Method O2 Flow Rate 97.8 F 88 20 H 146/95 H 93 Nasal Cannula 4 08/14/22 09:00 08/14/22 13:09 08/14/22 13:09 08/14/22 09:00 08/14/22 09:00 08/14/22 10:00 08/14/22 10:00 Oxygen Flow Rate (L/min) 4 Oxygen Delivery Method Nasal Cannula Weight: 79.6 kg Body Mass Index (BMI) 30.1 Intake & Output: Intake and Output for Last 24 Hours 08/12/22 08/13/22 08/14/22 23:59 23:59 23:59 Intake Total 4000.83 / 4000.83 1641.67 / 1761.67 1290 / 1290 Output Total 1200 / 1200 550 / 1450 2000 / 2000 Balance 2800.83 / 2800.83 1091.67 / 311.67 -710 / -710 Lab / Micro Data 08/14/22 04:27 08/14/22 04:27 Labs: Laboratory Results - last 24 hr 08/13/22 17:29: POC Glucose 207 H 08/13/22 18:41: Urine Color Yellow, Urine Clarity Clear, Urine pH 6.0, Ur Specific [place] 1.015, Urine Protein 15 H, Urine Glucose (UA) 50 H, Urine Ketones Negative, Urine Occult Blood Negative, Urine Nitrite Negative, Urine Bilirubin Negative, Urine Urobilinogen Normal, Ur Leukocyte Esterase 25 H, UrineRBC 0 SEEN, Urine WBC 0-5 SEEN, Ur Squamous Epith Cells 0-5 SEEN, Ur Renal Epithelial Cell 0-5 SEEN, Amorphous Sediment 1+ URATE, Urine Bacteria RARE, Urine Mucus 0 SEEN 08/13/22 19:33: PT 14.1, INR 1.1, APTT 31.5, Alkaline Phosphatase 71, Lactate Dehydrogenase 280 H, Total Protein 5.1 L, Globulin 2.8, Albumin/Globulin Ratio 0.8 L 08/13/22 21:46: POC Glucose 174 H 08/14/22 04:27: WBC 18.6 H, RBC 2.80 L, Hgb 8.3 L, Hct 27.3 L, MCV 97.5, MCH 29.6, MCHC 30.4 L, RDW Std Deviation 51.7 H, RDW Coeff of Gerhard 16.0 H, Plt Count 271, MPV 9.8, Immature Gran % (Auto) 2.500 H, Neut % (Auto) 80.8 H, Lymph % (Auto) 8.2 L, Long % (Auto) 6.6, Eos % (Auto) 1.7, Baso % (Auto) 0.2, Absolute Neuts (auto) 15.1 H, Absolute Lymphs (auto) 1.52, Nucleated RBC % 0.1, Sodium 139, Potassium 3.5, Chloride 109 H, Carbon Dioxide 27.0, Anion Gap 3 L, BUN 18, Creatinine 0.67, Estim Creat Clear Calc 46.50, Est GFR (MDRD) Af Amer 112, Est GFR (MDRD) Non-Af 93, BUN/Creatinine Ratio 26.9 H, Glucose 160 H, Calcium 8.2 L,Total Bilirubin 1.00, Direct Bilirubin 0.36 H, AST 23, ALT 16, Alkaline Phosphatase 69, Total Protein 5.3 L, Albumin 2.4 L, Globulin 2.9 08/14/22 06:22: POC Glucose 143 H 08/14/22 08:12: POC Glucose 161 H 08/14/22 11:20: POC Glucose 180 H Micro: Microbiology 08/07/22 06:25 Blood Culture (Wb) - Right Wrist Blood Culture - Final No growth in 5 days. 08/07/22 06:20 Blood Culture (Wb) - Anticubital Right Blood Culture - Final No growth in 5 days. 08/07/22 08:45 Urine, Random Urine Culture - Final Culture exhibits no growth. Radiography Diagnostic Testing: Radiology Impression Chest CT 08/13/22 15:32 IMPRESSION: Cardiomegaly with pulmonary edema, small pericardial [...] with and without contrast for further evaluation. Electronically Signed: Gallito Crisostomo MD at 17:25 EDT , ADDENDUM: 08/13/22 1809 IMPRESSION: Cardiomegaly with pulmonary edema, small pericardial [...] with and without contrast for further evaluation. N.B. : Mery Valdes RN, confirmed on 08/13/2022 18:02:56 (ET) that the healthcare facility has received the radiology report. Electronically Signed: Gallito Crisostomo MD at 17:25 EDT , Abdomen/Pelvis CT 08/14/22 07:51 IMPRESSION: Metastatic deposits in the visualized thoracic and lumbar vertebrae with multiple compression fractures. Bilateral renal cysts. Findings suggestive of postoperative changes in the soft tissues overlying the lower left subcutaneous tissues extending to the region of the left hip joint. Bilateral pleural effusions left greater than right with underlying infiltration and/or atelectasis. Electronically Signed: Christopher Jackson MD at 11:21 EDT , Rhythm Strip Rhythm Strip: Sinus Rhythm Rate: 90 Ectopy: None Physical Exam Const alert, oriented x3, no apparent distress and well nourished Constitutional Narrative: Upper middle-aged, obese, white female, lying in bed, somewhat groggy at this time however family reports her mental status was much better until she receivedher pain medication just prior to me coming in, appears comfortable and nontoxicat this time HEENT head/scalp atraumatic and moist oral mucous membranes HEENT Narrative: Mallampati 3, no thrush Head and Scalp: normocephalic Eyes PERRL, EOMs intact bilaterally and conjunctivae normal Eyes Narrative: Conjunctiva are mildly pale bilaterally, no scleral icterus Neck no lymphadenopathy and supple Neck Narrative: Trachea midline, neck is in for, no thyroid enlargement Resp normal respiratory effort, no retractions and no use of accessory muscles Resp Narrative: Markedly diminished breath sounds on the left specifically at the base with improved aeration at the apex but no adventitious sounds Auscultation: Negative for rales, rhonchi or wheezes Cardio regular rate, regular rhythm, S1 normal heart sound, S2 normal heart sound, no murmurs, no rub, no gallops and no clicks GI normal to inspection, nondistended, normoactive bowel sounds, soft to palpation and non-tender Extremity no clubbing, cyanosis or edema Extremity Narrative: Significant ecchymosis at the left lateral leg down the posterior lateral aspectof her left thigh to about the knee area, dressing is mildly saturated with blood, pedal pulses are 2+ Skin skin turgor normal, no jaundice, no petechiae and no mottling Skin Narrative: Changes as noted above Neuro oriented x3, CN's II-XII intact bilaterally and no focal motor deficits Neuro Narrative: Able to move all extremities however decreased movement left lower extremity secondary to pain Speech: speech normal Psych Psych Narrative: Sleepy as she was just medicated but appears calm and able to interact and answer questions appropriately Assessment & Plan Assessment/Plan (1) Toxic metabolic encephalopathy: (2) Intertrochanteric fracture of left femur: (3) Lytic bone lesions on xray: (4) Pleural effusion: (5) Shortness of breath: (6) Acute blood loss anemia: (7) Hypoxia: PLAN: Plan Acute left intertrochanteric fracture -? related to osteoporosis versus pathologic fracture--> unclear at this time -Postop day 8 CMN -Continue as needed Nubain -Continue as needed hydrocodone -As needed Tylenol -Weightbearing as tolerated -Restart subcu Lovenox for DVT prophylaxis tomorrow if stable hemoglobin--> helddue to postoperative hematoma and anemia Multiple lytic lesions -MRI brain unremarkable/CT abdomen pelvis with contrast not assisting with diagnosing any primary -I discussed the case with interventional radiology and they are unable to do any biopsies on lytic lesions due to location -No cranial lytic lesions -Thoracentesis with cytology pending -Check CA 19-9, CEA, CA125 -Consult oncology Large left pleural effusion -Thoracentesis today -Once performed calculate lights criteria--> highly suspect this may be malignant -Pathology pending postthoracentesis -Continue Lasix as ordered -Echocardiogram pending Hypoxia/shortness of breath -Likely related to the above pleural effusion -Currently on 2 L -We will try to wean after thoracentesis is performed -There is a risk of reaccumulation -Patient was placed on Zosyn and will continue this for now until infectious work-up can be completed Acute blood loss anemia -Patient with large hematoma noted postoperatively and CT of the hip does show hematoma -Ecchymotic area over left hip -Hemoglobin appears to be stabilizing -If stable tomorrow will restart subcu Lovenox -CBC in a.m. Leukocytosis -Elevated then trended down but now trending back up with stability today -On Zosyn -Urine culture on presentation and blood cultures on presentation were unremarkable -Continue to monitor as this may be reactive DM-2 -Continue SSI -Accu-Cheks as ordered -Hold home oral agents Hypertension -Continue home lisinopril -Continue home carvedilol Hyperlipidemia -Continue home statin Osteoporosis -Continue vitamin D supplementation and Fosamax CKD stage IIIb -Renal function is completely normalized at 0.67 -Suspect patient may be slightly volume overloaded and this is not her baseline renal function -Continue Lasix -Repeat BMP in a.m. GERD -Continue home PPI Toxic/metabolic encephalopathy -Per family her mental status is much improved -Discontinue Xanax and substitute Ativan -Discontinue Seroquel and add low-dose Risperdal Depression/anxiety -Continue home fluoxetine -Continue home BuSpar Urinary incontinence -Continue home oxybutynin DVT prophylaxis -SCDs for now and if hemoglobin stable will restart Lovenox tomorrow 40 daily with plans to continue for 30 days postoperatively CODE STATUS -Full code Charges/Coding Visit Charges Inpatient E&M: 19991 Subs Hosp L3 08/14/22 1504 <Electronically signed by Tamiko Quigley DO> Cosigner Signature (if applicable): CC: ~ Signed [facility] Work Phone: 1(715) 134-951307-02-2023 Progress note Author [facility] August 13, 2022 7:33pm Note Date/Time August 13, 2022 6:00p [facility] Medical Records Department [address] [place] [address] Progress Note - Hospitalist 08/13/22 1756 MR#: [id number] Acct: [id number] Name: DONNA MARSH Rep #:[id number] : 1955 66 From: John Short DO PCP: ORESTES Cano Status:ADM IN Location: [place] [address] Reason for Visit Reason for Visit: Diagnoses Encephalopathy, unspecified (08/05/22) Disorientation, unspecified (08/05/22) Displaced intertrochanteric fracture of left femur, initial encounter for closedfracture (08/05/22) Fall on same level from slipping, tripping and stumbling without subsequent striking against object, initial encounter (08/05/22) Subjective Subjective Patient was seen and examined today, earlier today she appeared anxious, I have placed her on a small amount of Xanax and she also had an elevated white blood cell count, this afternoon I obtained a chest x-ray which showed what appears kajal a large left pleural effusion, CT scan of the chest was ordered which showed cardiomegaly with pulmonary edema and small right pericardial effusion with a large left pericardial effusion. Underlying infection could not be ruled out, there were also findings concerning for osseous metastatic disease from unknown primary with multiple sclerotic and lytic lesions throughout the appendicular and axial skeleton as well and several chronic pathologic rib fractures and several acute minimally displaced pathological rib fractures involving the left anterior lateral third fourth fifth sixth seventh and eighth ribs. There was also a partially visualized lytic lesion involving T12 vertebral body with a pathological fracture. CT of the abdomen pelvis with and without contrast was recommended for further evaluation. Patient also had a 4.4 cm density in the right upper renal pole concerning for possible renal cell carcinoma. I had a discussion with the patient's daughter about these findings, patient will undergo a left thoracentesis tomorrow, she will need further work-up for metastatic cancer. Objective Data Objective Data Vital Signs: Vital Signs Temp Pulse Resp BP Pulse Ox O2 Del Method O2 Flow Rate 97.9 F 88 20 H 122/88 H 97 Nasal Cannula 2 08/13/22 14:17 08/13/22 17:15 08/13/22 17:15 08/13/22 14:17 08/13/22 14:17 08/13/22 14:17 08/13/22 14:17 Oxygen Flow Rate (L/min) 2 Oxygen Delivery Method Nasal Cannula Weight: 79.6 kg Body Mass Index (BMI) 30.1 Intake & Output: Intake and Output for Last 24 Hours 08/11/22 08/12/22 08/13/22 23:59 23:59 23:59 Intake Total 3411.25 / 3411.25 4000.83 / 4000.83 1401.67 / 1401.67 Output Total 1000 / 1000 1200 / 1200 Balance 2411.25 / 2411.25 2800.83 / 2800.83 1401.67 / 1401.67 Lab / Micro Data 08/13/22 03:55 08/11/22 05:23 Labs: Laboratory Results - last 24 hr 08/12/22 22:11: POC Glucose 161 H 08/13/22 03:55: WBC 22.1 H, RBC 2.69 L, Hgb 8.1 L, Hct 25.4 L, MCV 94.4, MCH 30.1, MCHC 31.9 L, RDW Std Deviation 48.0 H, RDW Coeff of Gerhard 15.4 H, Plt Count 216, MPV 9.6, Immature Gran % (Auto) 1.700 H, Neut % (Auto) 82.8 H, Lymph % (Auto) 7.9 L, Long % (Auto) 5.6, Eos % (Auto) 1.8, Baso % (Auto) 0.2, Absolute Neuts (auto) 18.4 H, Absolute Lymphs (auto) 1.74, Nucleated RBC % 0, Troponin I High Sens 14 08/13/22 06:26: POC Glucose 181 H 08/13/22 12:04: POC Glucose 230 H 08/13/22 17:29: POC Glucose 207 H Micro: Microbiology 08/07/22 06:25 Blood Culture (Wb) - Right Wrist Blood Culture - Final No growth in 5 days. 08/07/22 06:20 Blood Culture (Wb) - Anticubital Right Blood Culture - Final No growth in 5 days. 08/07/22 08:45 Urine, Random Urine Culture - Final Culture exhibits no growth. Radiography Diagnostic Testing: Radiology Impression Chest X-Ray 08/13/22 09:43 IMPRESSION: Suspect large left pleural effusion. CT may be useful. Electronically Signed: Fransico Martinez MD at 10:07 EDT , Chest CT 08/13/22 15:32 IMPRESSION: Cardiomegaly with pulmonary edema, small pericardial [...] with and without contrast for further evaluation. Electronically Signed: Gallito Crisostomo MD at 17:25 EDT , Rhythm Strip Rhythm Strip: Sinus Rhythm Rate: 90 Ectopy: None Physical Exam Const Constitutional Narrative: Patient is lethargic, she responds to painful stimuli General Appearance: well developed HEENT normocephalic, head/scalp atraumatic and moist oral mucous membranes Eyes PERRL, EOMs intact bilaterally and conjunctivae normal Neck supple, no JVD, thyroid normal and no carotid bruits General: trachea midline Resp normal respiratory effort, no retractions and no use of accessory muscles Resp Narrative: Decreased breath sounds are noted over the left lung base Auscultation: Negative for rales, rhonchi or wheezes Cardio regular rate, regular rhythm, S1 normal heart sound, S2 normal heart sound, no murmurs, no rub and no gallops GI normal to inspection, nondistended, normoactive bowel sounds, soft to palpation,non-tender and non-distended Extremity Extremity Narrative: There is generalized ecchymosis noted over the left leg near her hip surgical repair site Skin no rashes or lesions noted General Skin Exam: no breakdown Neuro CN's II-XII intact bilaterally, moves all extremities, no focal motor deficits and no sensory deficits noted Neuro Narrative: Patient is somnolent, she does respond to painful stimuli Speech: speech normal Psych Psych Narrative: Patient is somnolent, she does respond to painful stimuli Assessment & Plan Assessment/Plan (1) Acute delirium: (2) Closed intertrochanteric fracture of left hip: (3) Intertrochanteric fracture of left femur: (4) Acute encephalopathy: PLAN: Plan 1. Left intertrochanteric fracture secondary to osteoporosis-status postop day 7 insertion of intramedullary jules left femur-PT and OT continue to work with thepatient, she will be placed in a residential facility when a bed is available #2 type 2 diabetes-patient's blood sugars will be monitored, sliding scale insulin will be administered as needed #3 essential hypertension-patient will remain on her home medication #4 hyperlipidemia-patient is on a statin #5 bipolar disorder-patient does not currently appear to be on any bipolar medication, she is on antidepressants and anxiety medication. #6 chronic pain syndrome-according to the daughter, patient is on medical marijuana at home for pain #7 osteoporosis-patient is on Fosamax #8 encephalopathy-possibly secondary to medication reaction-probable narcotic reaction-patient's IV narcotics were stopped, she is currently on Vicodin and Nubain for pain, she appears to be tolerating these well #9 acute blood loss anemia-probably secondary to blood loss from surgery- patient's hemoglobin is stable at this time #10 stage IIIb chronic kidney disease secondary to type 2 diabetes-patient's renal function will be monitored, she is now receiving Toradol and unfortunatelyI do not have any other pain medication I can give this patient due to her encephalopathy and possible reaction to narcotics at this time. #11 left pleural effusion with possible underlying congestive heart failure, I will place the patient on IV Lasix, due to the fact I cannot rule out an underlying pneumonia, I have decided to place the patient on Zosyn. Echocardiogram will be obtained, patient will need to undergo a left thoracentesis #[address] indicating widespread metastatic lesions over the appendicular and axial skeleton with several chronic pathological rib fractures and several acute minimally displaced pathological rib fractures involving the left third fourth fifth sixth seventh and eighth ribs, there is also a lytic lesion in [id number] will need further work-up concerning this. #12 hypoxia secondary to left pleural effusion and probable CHF-again patient will be placed on IV Lasix and echocardiogram will be obtained, she will undergothoracentesis tomorrow .Total clinical time spent by myself addressing the patient's medical issues, reviewing all of her data, and collaborating with patient's care team: 55 minutes Charges/Coding Visit Charges Inpatient E&M: 29412 Subs Hosp L3 08/13/22 1806 <Electronically signed by John Short DO> Cosigner Signature (if applicable): CC: ~ Signed ADDENDUM by Dr. John Short DO on 08/13/22 at 1933 Addendum Additional note, I have decided to place the patient on broad-spectrum antibiotics due to her left pleural effusion and inability to adequately assess the left lung for pneumonia. 07/02/23 1933<Electronically signed by John Short DO> Cosigner Signature (if applicable): cc: ~* Signed [facility] Work Phone: 1(988) 367-339407-01-2023 Progress note Author Dereck Ramirez [facility] August 12, 2022 1:09pm Note Date/Time August 12, 2022 1:08p m [facility] Medical Records Department [address] [place] [address] Progress Note - Orthopedic 08/12/22 1304 MR#: [id number] Acct: [id number] Name: DONNA MARSH Rep #:[id number] : 1955 66 From: Dereck chandra DO PCP: ORESTES Cano Status:ADM IN Location: [place] [address] Subjective Subjective Patient seen and examined. Mental status back to baseline. Denies any fevers, chills, nausea vomiting, chest pain or shortness of breath. Reporting bilateralhip muscle spasm. Has not been out of bed. Objective Data Objective Data Vital Signs: Vital Signs Temp Pulse Resp BP Pulse Ox O2 Del Method O2 Flow Rate 99.5 F H 102 H 18 140/89 H 94 Room Air 2 08/12/22 08:37 08/12/22 08:37 08/12/22 08:37 08/12/22 08:37 08/12/22 08:37 08/12/22 09:08 08/12/22 07:07 Oxygen Flow Rate (L/min) 2 Oxygen Delivery Method Room Air Weight: 175 lb 7.807 oz Body Mass Index (BMI) 30.1 Intake & Output: Intake and Output for Last 24 Hours 08/10/22 08/11/22 08/12/22 23:59 23:59 23:59 Intake Total 3756.67 / 3756.67 3411.25 / 3411.25 1060 / 1060 Output Total 950 / 1350 1000 / 1000 500 / 500 Balance 2806.67 / 2406.67 2411.25 / 2411.25 560 / 560 Lab / Micro Data 08/11/22 05:23 08/11/22 05:23 Labs: Laboratory Results - last 24 hr 08/11/22 16:36: POC Glucose 168 H 08/11/22 21:33: POC Glucose 129 H 08/12/22 06:31: POC Glucose 140 H Micro: Microbiology 08/07/22 06:25 Blood Culture (Wb) - Right Wrist Blood Culture - Final No growth in 5 days. 08/07/22 06:20 Blood Culture (Wb) - Anticubital Right Blood Culture - Final No growth in 5 days. 08/07/22 08:45 Urine, Random Urine Culture - Final Culture exhibits no growth. Rhythm Strip Rhythm Strip: Sinus Rhythm Rate: 90 Ectopy: None Physical Exam Narrative General - A&Ox3, NAD. VSS/AF Left lower extremity -moderate serosanguineous drainage noted on proximal dressing otherwise dressings are clean dry and intact. Ecchymosis stable and thigh. Compartments soft and compressible. SILT Sural, Saphenous, SPN, DPN, Tibial N. distributions. DP, PT 2+. BCR. DF, PF, EHL 5/5. No calf TTP. Assessment & Plan Assessment/Plan (1) Intertrochanteric fracture of left femur: (2) Closed intertrochanteric fracture of left hip: PLAN: POD#6 s/p left femur CMN -Mental status back to baseline -Recheck H&H in the morning. Hemodynamically stable today. Drainage appears kajal slowing. -Continue judicious use of narcotic pain medication in the setting of improving delirium. -Mobilize with therapy when able. Weightbearing as tolerated left lower extremity. -Will follow 08/12/22 1304 <Electronically signed by Dereck Ramirez DO> Cosigner Signature (if applicable): CC: ~ Signed [facility] Work Phone: [phone]) 521-899807-01-2023 Progress note Author John Short [facility] August 12, 2022 12:27pm Note Date/Time August 12, 2022 12:27 pm [facility] Medical Records Department [address] [place] [address] Progress Note - Hospitalist 08/12/22 1225 MR#: [id number] Acct: [id number] Name: DONNA MARSH Rep #:[id number] : 1955 66 From: John Short DO PCP: ORESTES Cano Status:ADM IN Location: [place] [address]- Reason for Visit Reason for Visit: Diagnoses Encephalopathy, unspecified (08/05/22) Disorientation, unspecified (08/05/22) Displaced intertrochanteric fracture of left femur, initial encounter for closedfracture (08/05/22) Fall on same level from slipping, tripping and stumbling without subsequent striking against object, initial encounter (08/05/22) Subjective Subjective Patient was seen and examined today, she appears more alert, I emphasized that she must try to get up and walk today with physical therapy and she must stay out of bed is much as she can tolerate. Also talked with her daughter who was in the room at the time my examination. Objective Data Objective Data Vital Signs: Vital Signs Temp Pulse Resp BP Pulse Ox O2 Del Method O2 Flow Rate 99.5 F H 102 H 18 140/89 H 94 Room Air 2 08/12/22 08:37 08/12/22 08:37 08/12/22 08:37 08/12/22 08:37 08/12/22 08:37 08/12/22 09:08 08/12/22 07:07 Oxygen Flow Rate (L/min) 2 Oxygen Delivery Method Room Air Weight: 79.6 kg Body Mass Index (BMI) 30.1 Intake & Output: Intake and Output for Last 24 Hours 08/10/22 08/11/22 08/12/22 23:59 23:59 23:59 Intake Total 3756.67 / 3756.67 3411.25 / 3411.25 1060 / 1060 Output Total 950 / 1350 1000 / 1000 500 / 500 Balance 2806.67 / 2406.67 2411.25 / 2411.25 560 / 560 Lab / Micro Data 08/11/22 05:23 08/11/22 05:23 Labs: Laboratory Results - last 24 hr 08/11/22 16:36: POC Glucose 168 H 08/11/22 21:33: POC Glucose 129 H 08/12/22 06:31: POC Glucose 140 H Micro: Microbiology 08/07/22 06:25 Blood Culture (Wb) - Right Wrist Blood Culture - Final No growth in 5 days. 08/07/22 06:20 Blood Culture (Wb) - Anticubital Right Blood Culture - Final No growth in 5 days. 08/07/22 08:45 Urine, Random Urine Culture - Final Culture exhibits no growth. Rhythm Strip Rhythm Strip: Sinus Rhythm Rate: 90 Ectopy: None Physical Exam Const alert, oriented x3, no apparent distress and average body habitus General Appearance: cooperative, well kempt and well developed Orientation / Consciousness: awake, oriented to person, oriented to place and oriented to time HEENT normocephalic, head/scalp atraumatic and moist oral mucous membranes Eyes PERRL, EOMs intact bilaterally and conjunctivae normal Neck supple, no JVD, thyroid normal and no carotid bruits General: trachea midline Resp normal respiratory effort, no retractions, no use of accessory muscles and clearto auscultation bilaterally Auscultation: Negative for rales, rhonchi or wheezes Cardio regular rate, regular rhythm, S1 normal heart sound, S2 normal heart sound, no murmurs, no rub and no gallops GI normal to inspection, nondistended, normoactive bowel sounds, soft to palpation,non-tender and non-distended Extremity no clubbing, cyanosis or edema Skin no rashes or lesions noted General Skin Exam: no breakdown Neuro oriented x3, CN's II-XII intact bilaterally, no focal motor deficits and no sensory deficits noted Sensorium / Orientation: awake and alert Speech: speech normal Psych affect normal Assessment & Plan Assessment/Plan (1) Closed intertrochanteric fracture of left hip: (2) Intertrochanteric fracture of left femur: (3) Acute encephalopathy: (4) Acute delirium: PLAN: Plan 1. Left intertrochanteric fracture secondary to osteoporosis-status postop day 6 insertion of intramedullary jules left femur-PT and OT continue to work with thepatient, she will be placed in a residential facility when a bed is available #2 type 2 diabetes-patient's blood sugars will be monitored, sliding scale insulin will be administered as needed #3 essential hypertension-patient will remain on her home medication #4 hyperlipidemia-patient is on a statin #5 bipolar disorder-patient does not currently appear to be on any bipolar medication, she is on antidepressants and anxiety medication. #6 chronic pain syndrome-according to the daughter, patient is on medical marijuana at home for pain #7 osteoporosis-patient is on Fosamax #8 encephalopathy-possibly secondary to medication reaction-probable narcotic reaction-patient's IV narcotics were stopped, she is currently on Vicodin and Nubain for pain, she appears to be tolerating these well #9 acute blood loss anemia-probably secondary to blood loss from surgery- patient's hemoglobin is stable at this time #10 stage IIIb chronic kidney disease secondary to type 2 diabetes-patient's renal function will be monitored, she is now receiving Toradol and unfortunatelyI do not have any other pain medication I can give this patient due to her encephalopathy and possible reaction to narcotics at this time. I do not feel the patient has had an acute ischemic stroke. .Total clinical time spent by myself addressing the patient's medical issues, reviewing all of her data, and collaborating with patient's care team: 25 minutes Charges/Coding Visit Charges Inpatient E&M: 05028 Subs Hosp L1 08/12/22 1227 <Electronically signed by John Short DO> Cosigner Signature (if applicable): CC: ~ Signed [facility] Work Phone: [phone] 713-375706-30-2023 Progress note Author [facility] August 11, 2022 4:17pm Note Date/Time August 11, 2022 4:09 pm [facility] Medical Records Department [address] [place] [address] Progress Note - Hospitalist 08/11/22 1607 MR#: [id number] Acct: [id number] Name: DONNA MARSH Rep #:[id number] : 1955 66 From: John Short DO PCP: ORESTES Cano Status:ADM IN Location: [place] [address] 1 Reason for Visit Reason for Visit: Diagnoses Encephalopathy, unspecified (08/05/22) Disorientation, unspecified (08/05/22) Displaced intertrochanteric fracture of left femur, initial encounter for closedfracture (08/05/22) Fall on same level from slipping, tripping and stumbling without subsequent striking against object, initial encounter (08/05/22) Subjective Subjective Patient was seen and examined today, she is alert and responds appropriately to simple questions. Physical therapy worked with the patient today, social worker delinquency prevention talk with the patient's daughter about [facility] placement, the rehab unit has denied patient at this time. Objective Data Objective Data Vital Signs: Vital Signs Temp Pulse Resp BP Pulse Ox O2 Del Method O2 Flow Rate 98.1 F 90 16 172/91 H 97 Room Air 93 08/11/22 14:00 08/11/22 14:00 08/11/22 14:00 08/11/22 14:00 08/11/22 14:00 08/11/22 14:45 08/11/22 09:18 Oxygen Flow Rate (L/min) 93 Oxygen Delivery Method Room Air Weight: 79.6 kg Body Mass Index (BMI) 30.1 Intake & Output: Intake and Output for Last 24 Hours 08/09/22 08/10/22 08/11/22 23:59 23:59 23:59 Intake Total 3131.25 / 3131.25 3756.67 / 3756.67 1821.25 / 1821.25 Output Total 1450 / 1450 950 / 1350 400 / 400 Balance 1681.25 / 1681.25 2806.67 / 2406.67 1421.25 / 1421.25 Lab / Micro Data 08/11/22 05:23 08/11/22 05:23 Labs: Laboratory Results - last 24 hr 08/10/22 07:16: Blood Type O POSITIVE, Antibody Screen NEGATIVE, Crossmatch See Detail 08/10/22 16:56: POC Glucose 166 H 08/10/22 19:56: POC Glucose 185 H 08/10/22 22:22: Hgb 9.3 L, Hct 28.6 L 08/11/22 05:23: WBC 16.8 H, RBC 3.21 L, Hgb 9.4 L, Hct 29.2 L, MCV 91.0, MCH 29.3, MCHC 32.2, RDW Std Deviation 45.4 H, RDW Coeff of Gerhard 14.6, Plt Count 179,MPV 10.0, Immature Gran % (Auto) 1.800 H, Neut % (Auto) 76.2 H, Lymph % (Auto) 13.8 L, Long % (Auto) 5.7, Eos % (Auto) 2.3, Baso % (Auto) 0.2, Absolute Neuts (auto) 12.8 H, Absolute Lymphs (auto) 2.31, Nucleated RBC % 0.1, Sodium 143, Potassium 3.3 L, Chloride 113 H, Carbon Dioxide 23.0, Anion Gap 7, BUN 23 H, Creatinine 0.78, Estim Creat Clear Calc 46.50, Est GFR (MDRD) Af Amer 95, Est GFR (MDRD) Non-Af 78, BUN/Creatinine Ratio 29.6 H, Glucose 138 H, Calcium 7.4 L,Total Bilirubin 1.30 H, AST 18, ALT 13, Alkaline Phosphatase 53, Total Protein 5.0 L, Albumin 2.5 L, Globulin 2.5, Albumin/Globulin Ratio 1.0 08/11/22 07:41: POC Glucose 146 H 08/11/22 11:10: POC Glucose 232 H Micro: Microbiology 08/07/22 06:20 Blood Culture (Wb) - Anticubital Right Blood Culture - Preliminary No growth in 48 hours. 08/07/22 06:25 Blood Culture (Wb) - Right Wrist Blood Culture - Preliminary No growth in 48 hours. 08/07/22 08:45 Urine, Random Urine Culture - Final Culture exhibits no growth. Rhythm Strip Rhythm Strip: Sinus Rhythm Rate: 90 Ectopy: None Physical Exam Const alert, no apparent distress and healthy appearing General Appearance: cooperative, well kempt and well developed Orientation / Consciousness: awake, oriented to person and oriented to place HEENT normocephalic, head/scalp atraumatic and moist oral mucous membranes Eyes PERRL, EOMs intact bilaterally and conjunctivae normal Neck supple, no JVD, thyroid normal and no carotid bruits General: trachea midline Resp normal respiratory effort, no retractions, no use of accessory muscles and clearto auscultation bilaterally Auscultation: Negative for rales, rhonchi or wheezes Cardio regular rate, regular rhythm, S1 normal heart sound, S2 normal heart sound, no murmurs, no rub and no gallops GI normal to inspection, nondistended, normoactive bowel sounds, soft to palpation,non-tender and non-distended Extremity Extremity Narrative: There is generalized ecchymosis of the patient's left upper outer leg over the area of her ORIF of her hip fracture. Neuro oriented x3, CN's II-XII intact bilaterally, no focal motor deficits and no sensory deficits noted Sensorium / Orientation: awake and alert Speech: speech normal Psych Psych Narrative: Patient has a flat affect Assessment & Plan Assessment/Plan (1) Intertrochanteric fracture of left femur: (2) Acute encephalopathy: (3) Closed intertrochanteric fracture of left hip: (4) Acute delirium: PLAN: Plan 1. Left intertrochanteric fracture secondary to osteoporosis-status postop day 5 insertion of intramedullary jules left femur-PT and OT continue to work with the patient, she will be placed in a residential facility when a bed is available #2 type 2 diabetes-patient's blood sugars will be monitored, sliding scale insulin will be administered as needed #3 essential hypertension-patient will remain on her home medication #4 hyperlipidemia-patient is on a statin #5 bipolar disorder-patient does not currently appear to be on any bipolar medication, she is on antidepressants and anxiety medication. #6 chronic pain syndrome-according to the daughter, patient is on medical marijuana at home for pain #7 osteoporosis-patient is on Fosamax #8 encephalopathy-possibly secondary to medication reaction-probable narcotic reaction-patient's IV narcotics were stopped, she is currently on Vicodin and Nubain for pain, she appears to be tolerating these well #9 acute blood loss anemia-probably secondary to blood loss from surgery- patient's hemoglobin is stable at this time #10 stage IIIb chronic kidney disease secondary to type 2 diabetes-patient's renal function will be monitored, she is now receiving Toradol and unfortunatelyI do not have any other pain medication I can give this patient due to her encephalopathy and possible reaction to narcotics at this time. I do not feel the patient has had an acute ischemic stroke. .Total clinical time spent by myself addressing the patient's medical issues, reviewing all of her data, and collaborating with patient's care team: 25 minutes Charges/Coding Visit Charges Inpatient E&M: 93168 Subs Hosp L1 08/11/22 1617 <Electronically signed by John Short DO> Cosigner Signature (if applicable): CC: ~ Signed [facility] Work Phone: [phone]) 540-759706-30-2023 Progress note Author Dereck Ramirez [facility] August 11, 2022 8:01am Note Date/Time August 11, 2022 8:01 am [facility] Medical Records Department [address] [place] [address] Progress Note - Orthopedic 08/11/22 0757 MR#: [id number] Acct: [id number] Name: DONNA MARSH Rep #:[id number] : 1955 66 From: Dereck chandra DO PCP: ORESTES Cano Status:ADM IN Location: [place] [address] Subjective Subjective Patient seen and examined. Alert and oriented this morning. She had issues with controlling her pain overnight with pain in her left hip and low back. Shedenies any fevers, chills, nausea vomiting, chest pain or shortness of breath. Objective Data Objective Data Vital Signs: Vital Signs Temp Pulse Resp BP Pulse Ox O2 Del Method O2 Flow Rate 98 F 998 H 18 171/80 H 100 Nasal Cannula 2 08/11/22 05:26 08/11/22 06:07 08/11/22 05:26 08/11/22 06:07 08/11/22 05:39 08/11/22 05:39 08/11/22 05:39 Oxygen Flow Rate (L/min) 2 Oxygen Delivery Method Nasal Cannula Weight: 175 lb 7.807 oz Body Mass Index (BMI) 30.1 Intake & Output: Intake and Output for Last 24 Hours 08/09/22 08/10/22 08/11/22 23:59 23:59 23:59 Intake Total 3131.25 / 3131.25 3756.67 / 3756.67 581.25 / 581.25 Output Total 1450 / 1450 950 / 1350 400 / 400 Balance 1681.25 / 1681.25 2806.67 / 2406.67 181.25 / 181.25 Lab / Micro Data 08/11/22 05:23 08/11/22 05:23 Labs: Laboratory Results - last 24 hr 08/10/22 07:16: Blood Type O POSITIVE, Antibody Screen NEGATIVE, Crossmatch See Detail 08/10/22 12:08: POC Glucose 186 H 08/10/22 16:56: POC Glucose 166 H 08/10/22 19:56: POC Glucose 185 H 08/10/22 22:22: Hgb 9.3 L, Hct 28.6 L 08/11/22 05:23: WBC 16.8 H, RBC 3.21 L, Hgb 9.4 L, Hct 29.2 L, MCV 91.0, MCH 29.3, MCHC 32.2, RDW Std Deviation 45.4 H, RDW Coeff of Gerhard 14.6, Plt Count 179,MPV 10.0, Immature Gran % (Auto) 1.800 H, Neut % (Auto) 76.2 H, Lymph % (Auto) 13.8 L, Long % (Auto) 5.7, Eos % (Auto) 2.3, Baso % (Auto) 0.2, Absolute Neuts (auto) 12.8 H, Absolute Lymphs (auto) 2.31, Nucleated RBC % 0.1, Sodium 143, Potassium 3.3 L, Chloride 113 H, Carbon Dioxide 23.0, Anion Gap 7, BUN 23 H, Creatinine 0.78, Estim Creat Clear Calc 46.50, Est GFR (MDRD) Af Amer 95, Est GFR (MDRD) Non-Af 78, BUN/Creatinine Ratio 29.6 H, Glucose 138 H, Calcium 7.4 L,Total Bilirubin 1.30 H, AST 18, ALT 13, Alkaline Phosphatase 53, Total Protein 5.0 L, Albumin 2.5 L, Globulin 2.5, Albumin/Globulin Ratio 1.0 Micro: Microbiology 08/07/22 06:20 Blood Culture (Wb) - Anticubital Right Blood Culture - Preliminary No growth in 48 hours. 08/07/22 06:25 Blood Culture (Wb) - Right Wrist Blood Culture - Preliminary No growth in 48 hours. 08/07/22 08:45 Urine, Random Urine Culture - Final Culture exhibits no growth. Rhythm Strip Rhythm Strip: Sinus Rhythm Rate: 90 Ectopy: None Physical Exam Narrative General -alert and oriented to person and place, NAD Left lower extremity -sensation intact throughout. Compartments are soft and compressible. Subcutaneous ecchymosis is again noted appears stable. Proximal incisional dressing demonstrates serosanguineous drainage. Ankle dorsiflexion, plantarflexion, EHL 5/5. DP pulse 2+ brisk cap refill in the toes. Lumbar spine examined. Paraspinal tenderness is noted on the left side. No midline lumbar tenderness, no step-offs or deformities. Assessment & Plan Assessment/Plan (1) Closed intertrochanteric fracture of left hip: PLAN: POD#5 s/p left femur CMN -Mental status continues to improve. -Hemoglobin rechecked last evening and again this morning and is stable. She isstatus post 2 unit packed red blood cell transfusion yesterday. If hemoglobin stable tomorrow, consider restarting anticoagulant as patient will be at high risk for VTE given immobilization and recent surgery. -Continue judicious use of narcotic pain medication in the setting of improving delirium. -Mobilize with therapy when able. Weightbearing as tolerated left lower extremity. -Will follow 08/11/22 08 <Electronically signed by Dereck Ramirez DO> Cosigner Signature (if applicable): CC: ~ Signed [facility] Work Phone: [phone] Progress note Author Kanwal Aguilar [facility] August 10, 2022 10:56pm Note Date/Time August 10, 2022 10:5 6pm [facility] Medical Records Department [address] [place] [address] Progress Note - Hospitalist 08/10/222253 MR#: [id number] Acct: [id number] Name: DONNA MARSH Rep #:[id number] : 1955 66 From: Kanwal Aguilar MD PCP: NIYAH CanoC Status:ADM IN Location: [place] [address] Hospitalist Note Patient with ongoing persistent pain. No improvement with low dose gabapentin trial from discussion with staff. Notes spasms, trial flexeril with mild improvement from 10/10 to 8/10. Will trial norco x 1 per patient/family agreement with close monitoring of her mental status given prior reported confusion/sedation. 08/10/222255 <Electronically signed by Kanwal Aguilar MD> Cosigner Signature (if applicable): CC: ~ Signed [facility] Work Phone: [phone] Progress note Author Dereck Ramirez [facility] August 10, 2022 5:02pm Note Date/Time August 10, 2022 5:02 pm [facility] Medical Records Department [address] [place] [address] Progress Note - Orthopedic 08/10/221657 MR#: [id number] Acct: [id number] Name: DONNA MARSH Rep #:[id number] : 1955 66 From: Dereck chandra DO PCP: ORESTES Cano Status:ADM IN Location: [place] [address] 1 Subjective Subjective This is a late entry note patient seen at 0910 this morning. Patient able to answer questions appropriately this morning with improved mental status. She reports pain in her left hip otherwise denies any complaints. Denies fevers, chills, nausea or vomiting, chest pain or shortness of breath. Objective Data Objective Data Vital Signs: Vital Signs Temp Pulse Resp BP Pulse Ox O2 Del Method O2 Flow Rate 97.9 F 99 18 174/88 H 94 Room Air 2 08/10/22 15:00 08/10/22 15:00 08/10/22 15:00 08/10/22 15:00 08/10/22 15:00 08/10/22 15:00 08/08/22 07:30 Oxygen Flow Rate (L/min) 2 Oxygen Delivery Method Room Air Weight: 175 lb 7.807 oz Body Mass Index (BMI) 30.1 Intake & Output: Intake and Output for Last 24 Hours 08/08/22 08/09/22 08/10/22 23:59 23:59 23:59 Intake Total 2739.58 / 2739.58 3131.25 / 3131.25 2233.75 / 2233.75 Output Total 1450 / 1450 700 / 700 Balance 2739.58 / 2739.58 1681.25 / 1681.25 1533.75 / 1533.75 Lab / Micro Data 08/10/22 05:49 08/10/22 05:49 Labs: Laboratory Results - last 24 hr 08/09/22 21:20: POC Glucose 188 H 08/10/22 05:49: WBC 13.9 H, RBC 2.04 L, Hgb 6.2 L, Hct 19.1 L, MCV 93.6, MCH 30.4, MCHC 32.5, RDW Std Deviation 46.0 H, RDW Coeff of Gerhard 13.8, Plt Count 143 L, MPV 9.6, Immature Gran % (Auto) 0.600, Neut % (Auto) 74.7 H, Lymph % (Auto) 15.5 L, Long % (Auto) 7.7, Eos % (Auto) 1.4, Baso % (Auto) 0.1, Absolute Neuts (auto) 10.4 H, Absolute Lymphs (auto) 2.16, Nucleated RBC % 0, Sodium 143, Potassium 3.0 L, Chloride 114 H, Carbon Dioxide 25.0, Anion Gap 4 L, BUN 26 H, Creatinine 0.99, Estim Creat Clear Calc 46.96, Est GFR (MDRD) Af Amer 72, Est GFR (MDRD) Non-Af 59 L, BUN/Creatinine Ratio 26.3 H, Glucose 182 H, Calcium 7.5 L 08/10/22 06:40: POC Glucose 173 H 08/10/22 07:16: Blood Type O POSITIVE, Antibody Screen NEGATIVE, Crossmatch See Detail 08/10/22 12:08: POC Glucose 186 H Micro: Microbiology 08/07/22 06:20 Blood Culture (Wb) - Anticubital Right Blood Culture - Preliminary No growth in 48 hours. 08/07/22 06:25 Blood Culture (Wb) - Right Wrist Blood Culture - Preliminary No growth in 48 hours. 08/07/22 08:45 Urine, Random Urine Culture - Final Culture exhibits no growth. Rhythm Strip Rhythm Strip: Sinus Rhythm Rate: 90 Ectopy: None Physical Exam Narrative General -alert and oriented to person and place, NAD Left lower extremity -sensation intact throughout. Compartments are soft and compressible. Subcutaneous ecchymosis is again noted appears stable. Proximal incisional dressing demonstrates serosanguineous drainage. Ankle dorsiflexion, plantarflexion, EHL 5/5. DP pulse 2+ brisk cap refill in the toes. Assessment & Plan Assessment/Plan (1) Intertrochanteric fracture of left femur: (2) Closed intertrochanteric fracture of left hip: PLAN: POD#4 s/p left femur CMN -Mental status much improved today with patient answering questions appropriately. -Continued drop in hemoglobin noted this morning. 2 units packed red blood cells ordered by primary. Agree with transfusion. Recheck H&H following transfusion and in the morning. I recommend continued hold of Lovenox. SCDs and KENISHA hose for DVT prophylaxis. -Mobilize with therapy when able. Weightbearing as tolerated left lower extremity. -Will follow 08/10/22 1702 <Electronically signed by Dereck Ramirez DO> Cosigner Signature (if applicable): CC: ~ Signed [facility] Work Phone: [phone] Progress note Author John Short [facility] August 10, 2022 2:32pm Note Date/Time August 10, 2022 2:33 pm [facility] Medical Records Department [address] [place] [address] Progress Note - Hospitalist 08/10/22 1431 MR#: [id number] Acct: [id number] Name: DONNA MARSH Rep #:[id number] : 1955 66 From: John Short DO PCP: ORESTES Cano Status:ADM IN Location: [place] [address] Reason for Visit Reason for Visit: Diagnoses Disorientation, unspecified (08/05/22) Displaced intertrochanteric fracture of left femur, initial encounter for closedfracture (08/05/22) Fall on same level from slipping, tripping and stumbling without subsequent striking against object, initial encounter (08/05/22) Subjective Subjective Patient was seen and examined today, she appears more alert but is still lethargic. She has been refused approval at 2 different nursing homes, this is mainly due to her confusion. Objective Data Objective Data Vital Signs: Vital Signs Temp Pulse Resp BP Pulse Ox O2 Del Method O2 Flow Rate 98 F 98 16 182/101 H 94 Room Air 2 08/10/22 13:00 08/10/22 14:19 08/10/22 13:00 08/10/22 14:19 08/10/22 13:00 08/10/22 13:12 08/08/22 07:30 Oxygen Flow Rate (L/min) 2 Oxygen Delivery Method Room Air Weight: 79.6 kg Body Mass Index (BMI) 30.1 Intake & Output: Intake and Output for Last 24 Hours 08/08/22 08/09/22 08/10/22 23:59 23:59 23:59 Intake Total 2739.58 / 2739.58 3131.25 / 3131.25 1833.75 / 1833.75 Output Total 1450 / 1450 700 / 700 Balance 2739.58 / 2739.58 1681.25 / 1681.25 1133.75 / 1133.75 Lab / Micro Data 08/10/22 05:49 08/10/22 05:49 Labs: Laboratory Results - last 24 hr 08/09/22 15:50: POC Glucose 199 H 08/09/22 21:20: POC Glucose 188 H 08/10/22 05:49: WBC 13.9 H, RBC 2.04 L, Hgb 6.2 L, Hct 19.1 L, MCV 93.6, MCH 30.4, MCHC 32.5, RDW Std Deviation 46.0 H, RDW Coeff of Gerhard 13.8, Plt Count 143 L, MPV 9.6, Immature Gran % (Auto) 0.600, Neut % (Auto) 74.7 H, Lymph % (Auto) 15.5 L, Long % (Auto) 7.7, Eos % (Auto) 1.4, Baso % (Auto) 0.1, Absolute Neuts (auto) 10.4 H, Absolute Lymphs (auto) 2.16, Nucleated RBC % 0, Sodium 143, Potassium 3.0 L, Chloride 114 H, Carbon Dioxide 25.0, Anion Gap 4 L, BUN 26 H, Creatinine 0.99, Estim Creat Clear Calc 46.96, Est GFR (MDRD) Af Amer 72, Est GFR (MDRD) Non-Af 59 L, BUN/Creatinine Ratio 26.3 H, Glucose 182 H, Calcium 7.5 L 08/10/22 06:40: POC Glucose 173 H 08/10/22 07:16: Blood Type O POSITIVE, Antibody Screen NEGATIVE, Crossmatch See Detail 08/10/22 12:08: POC Glucose 186 H Micro: Microbiology 08/07/22 06:20 Blood Culture (Wb) - Anticubital Right Blood Culture - Preliminary No growth in 48 hours. 08/07/22 06:25 Blood Culture (Wb) - Right Wrist Blood Culture - Preliminary No growth in 48 hours. 08/07/22 08:45 Urine, Random Urine Culture - Final Culture exhibits no growth. Rhythm Strip Rhythm Strip: Sinus Rhythm Rate: 90 Ectopy: None Physical Exam Narrative Constitutional Narrative: Patient is alert but confused, she is not able to carry on conversation with this examiner, she does speak a few words to the examiner but does not answer most questions directly. Orientation / Consciousness: awake HEENT normocephalic, head/scalp atraumatic and moist oral mucous membranes Eyes PERRL, EOMs intact bilaterally and conjunctivae normal Neck supple, no JVD, thyroid normal and no carotid bruits General: trachea midline Resp normal respiratory effort, no retractions, no use of accessory muscles and clearto auscultation bilaterally Auscultation: Negative for rales, rhonchi or wheezes Cardio regular rate, regular rhythm, S1 normal heart sound, S2 normal heart sound, no murmurs, no rub and no gallops GI normal to inspection, nondistended, normoactive bowel sounds, soft to palpation,non-tender and non-distended Extremity no clubbing, cyanosis or edema Skin no rashes or lesions noted General Skin Exam: no breakdown Neuro CN's II-XII intact bilaterally, moves all extremities, no focal motor deficits and no sensory deficits noted Neuro Narrative: Patient is alert but confused, she is able to speak a few words but does not carry on conversation. Sensorium / Orientation: awake Psych Psych Narrative: Patient is alert but confused Assessment & Plan Assessment/Plan (1) Acute encephalopathy: (2) Closed intertrochanteric fracture of left hip: (3) Acute delirium: PLAN: Plan 1. Left intertrochanteric fracture secondary to osteoporosis-status postop day 4 insertion of intramedullary jules left femur-when patient is more alert and ableto participate, PT and OT will see patient, she will most likely need placement in a residential facility versus rehab facility. #2 type 2 diabetes-patient's blood sugars will be monitored, sliding scale insulin will be administered as needed #3 essential hypertension-patient will remain on her home medication #4 hyperlipidemia-patient is on a statin #5 bipolar disorder-patient does not currently appear to be on any bipolar medication, she is on antidepressants and anxiety medication. #6 chronic pain syndrome-according to the daughter, patient is on medical marijuana at home for pain #7 osteoporosis-patient is on Fosamax #8 encephalopathy-possibly secondary to medication reaction-probable narcotic reaction-patient's IV narcotics were stopped, she remains on Toradol for pain #9 acute blood loss anemia-probably secondary to blood loss from surgery- patient's hemoglobin is stable at this time, CBC will be rechecked tomorrow #10 stage IIIb chronic kidney disease secondary to type 2 diabetes-patient's renal function will be monitored, she is now receiving Toradol and unfortunatelyI do not have any other pain medication I can give this patient due to her encephalopathy and possible reaction to narcotics at this time. I do not feel the patient has had an acute ischemic stroke. .Total clinical time spent by myself addressing the patient's medical issues, reviewing all of her data, and collaborating with patient's care team: 25 minutes Charges/Coding Visit Charges Inpatient E&M: 21894 Subs Hosp L1 08/10/22 1432 <Electronically signed by John Short DO> Cosigner Signature (if applicable): CC: ~ Signed [facility] Work Phone: [phone] Progress note Author Kanwal [facility] August 10, 2022 6:48am Note Date/Time August 10, 2022 6:49 am [facility] Medical Records Department [address] [place] [address] Progress Note - Hospitalist 08/10/22647 MR#: [id number] Acct: [id number] Name: DONNA MARSH Rep #:[id number] : 1955 66 From: Kanwal Aguilar MD PCP: ORESTES Cano Status:ADM IN Location: [place] [address] Hospitalist Note AM Hgb 6.2, steadily decreased s/p OR with suspected blood loss anemia, will order 2 u PRBC and repeat HH following completion. 08/10/22647 <Electronically signed by Kanwal Aguilar MD> Cosigner Signature (if applicable): CC: ~ Signed [facility] Work Phone: [phone] Progress note Author Dereck Rmairez [facility] August 09, 2022 6:55pm Note Date/Time August 09, 2022 6:55 pm [facility] Medical Records Department [address] [place] [address] Progress Note - Orthopedic 08/09/22 185 MR#: [id number] Acct: [id number] Name: DONNA MARSH Rep #:[id number] : 1955 66 From: Dereck chandra DO PCP: ORESTES Cano Status:ADM IN Location: [address] Subjective Subjective Patient seen and examined. Family at bedside. They report decreased agitation today. They feel she is doing much better and she was able to recognize family members today. Patient responds to questions by nodding or shaking her head butis not verbally responsive. She acknowledges she is in significant pain. She does not localize her pain. Objective Data Objective Data Vital Signs: Vital Signs Temp Pulse Resp BP Pulse Ox O2 Del Method O2 Flow Rate 97.6 F L 110 H 16 160/82 H 95 Room Air 2 08/09/22 14:10 08/09/22 14:10 08/09/22 14:10 08/09/22 14:10 08/09/22 14:10 08/09/22 14:10 08/08/22 07:30 Oxygen Flow Rate (L/min) 2 Oxygen Delivery Method Room Air Weight: 175 lb 7.807 oz Body Mass Index (BMI) 30.1 Intake & Output: Intake and Output for Last 24 Hours 08/07/22 08/08/22 08/09/22 23:59 23:59 23:59 Intake Total 3460.00 / 3460.00 2739.58 / 2739.58 3011.25 / 3011.25 Output Total 200 / 200 1200 / 1200 Balance 3260.00 / 3260.00 2739.58 / 2739.58 1811.25 / 1811.25 Lab / Micro Data Attestation: I reviewed the patient's lab results. 08/09/22 04:59 08/09/22 04:59 Labs: Laboratory Results - last 24 hr 08/08/22 21:03: POC Glucose 206 H 08/09/22 04:59: WBC 13.5 H, RBC 2.55 L, Hgb 7.6 L, Hct 23.1 L, MCV 90.6, MCH 29.8, MCHC 32.9 D, RDW Std Deviation 45.1 H, RDW Coeff of Gerhard 13.7, Plt Count 133 L, MPV 10.9, Immature Gran % (Auto) 1.100 H, Neut % (Auto) 81.2 H, Lymph % (Auto) 9.9 L, Long % (Auto) 7.1, Eos % (Auto) 0.6, Baso % (Auto) 0.1, Absolute Neuts (auto) 11.0 H, Absolute Lymphs (auto) 1.34, Nucleated RBC % 0, Sodium 144,Potassium 3.1 L, Chloride 113 H, Carbon Dioxide 24.0, Anion Gap 7, BUN 26 H, Creatinine 0.96, Estim Creat Clear Calc 48.43, Est GFR (MDRD) Af Amer 75, Est GFR (MDRD) Non-Af 62, BUN/Creatinine Ratio 27.2 H, Glucose 187 H, Calcium 8.0 L 08/09/22 06:32: POC Glucose 188 H 08/09/22 11:48: POC Glucose 174 H 08/09/22 15:50: POC Glucose 199 H Micro: Microbiology 08/07/22 06:20 Blood Culture (Wb) - Anticubital Right Blood Culture - Preliminary No growth in 48 hours. 08/07/22 06:25 Blood Culture (Wb) - Right Wrist Blood Culture - Preliminary No growth in 48 hours. 08/07/22 08:45 Urine, Random Urine Culture - Final Culture exhibits no growth. Rhythm Strip Rhythm Strip: Sinus Rhythm Rate: 90 Ectopy: None Physical Exam Narrative General -alert, NAD Left lower extremity -wiggles toes on command. DP pulse 2+. Sanguinous drainage noted on dressings, with diffuse subcutaneous ecchymosis noted along the lateral hip. Compartments are soft and compressible. No impending skin necrosis noted. No palpable fluctuance. Assessment & Plan Assessment/Plan (1) Closed intertrochanteric fracture of left hip: PLAN: POD#3 s/p left femur CMN -Delirium appears significantly improved today. Agree with judicious use of narcotic pain medicine. Defer to primary regarding further management of acute delirium -Acute blood loss anemia in the setting of subcutaneous and likely intramuscularhematoma. Hemoglobin is again decreased with significant sanguinous drainage onthe dressings. Recheck H&H in the morning. Continue to hold Lovenox. I would not recommend a return to the OR due to risk of worsening delirium unless absolutely necessary. Patient may require additional packed red blood cell transfusion. -Will follow 08/09/221854 <Electronically signed by Dereck Ramirez DO> Cosigner Signature (if applicable): CC: ~ Signed [facility] Work Phone: 1(279) 763-651806-28-2023 Progress note Author John Short [facility] August 09, 2022 3:11pm Note Date/Time August 09, 2022 3:11 pm [facility] Medical Records Department [address] [place] [address] Progress Note - Hospitalist 08/09/22 1506 MR#: [id number] Acct: [id number] Name: DONNA MARSH Rep #:[id number] : 1955 66 From: John Short DO PCP: ORESTES Cano Status:ADM IN Location: [place] [address] Reason for Visit Reason for Visit: Diagnoses Disorientation, unspecified (08/05/22) Displaced intertrochanteric fracture of left femur, initial encounter for closedfracture (08/05/22) Fall on same level from slipping, tripping and stumbling without subsequent striking against object, initial encounter (08/05/22) Subjective Subjective Patient was seen and examined today, she still remains confused but does not appear as restless as yesterday. Objective Data Objective Data Vital Signs: Vital Signs Temp Pulse Resp BP Pulse Ox O2 Del Method O2 Flow Rate 97.6 F L 110 H 14 160/82 H 95 Room Air 2 08/09/22 13:59 08/09/22 13:59 08/09/22 13:59 08/09/22 13:59 08/09/22 13:59 08/09/22 13:59 08/08/22 07:30 Oxygen Flow Rate (L/min) 2 Oxygen Delivery Method Room Air Weight: 79.6 kg Body Mass Index (BMI) 30.1 Intake & Output: Intake and Output for Last 24 Hours 08/07/22 08/08/22 08/09/22 23:59 23:59 23:59 Intake Total 3460.00 / 3460.00 2739.58 / 2739.58 1891.25 / 1891.25 Output Total 200 / 200 900 / 900 Balance 3260.00 / 3260.00 2739.58 / 2739.58 991.25 / 991.25 Lab / Micro Data 08/09/22 04:59 08/09/22 04:59 Labs: Laboratory Results - last 24 hr 08/08/22 16:40: POC Glucose 236 H 08/08/22 21:03: POC Glucose 206 H 08/09/22 04:59: WBC 13.5 H, RBC 2.55 L, Hgb 7.6 L, Hct 23.1 L, MCV 90.6, MCH 29.8, MCHC 32.9 D, RDW Std Deviation 45.1 H, RDW Coeff of Gerhard 13.7, Plt Count 133 L, MPV 10.9, Immature Gran % (Auto) 1.100 H, Neut % (Auto) 81.2 H, Lymph % (Auto) 9.9 L, Long % (Auto) 7.1, Eos % (Auto) 0.6, Baso % (Auto) 0.1, Absolute Neuts (auto) 11.0 H, Absolute Lymphs (auto) 1.34, Nucleated RBC % 0, Sodium 144,Potassium 3.1 L, Chloride 113 H, Carbon Dioxide 24.0, Anion Gap 7, BUN 26 H, Creatinine 0.96, Estim Creat Clear Calc 48.43, Est GFR (MDRD) Af Amer 75, Est GFR (MDRD) Non-Af 62, BUN/Creatinine Ratio 27.2 H, Glucose 187 H, Calcium 8.0 L 08/09/22 06:32: POC Glucose 188 H 08/09/22 11:48: POC Glucose 174 H Micro: Microbiology 08/07/22 06:20 Blood Culture (Wb) - Anticubital Right Blood Culture - Preliminary No growth in 48 hours. 08/07/22 06:25 Blood Culture (Wb) - Right Wrist Blood Culture - Preliminary No growth in 48 hours. 08/07/22 08:45 Urine, Random Urine Culture - Final Culture exhibits no growth. Rhythm Strip Rhythm Strip: Sinus Rhythm Rate: 90 Ectopy: None Physical Exam Narrative alert Constitutional Narrative: Patient is alert but confused, she is not able to carry on conversation with this examiner, she does speak a few words to the examiner but does not answer most questions directly. Orientation / Consciousness: awake HEENT normocephalic, head/scalp atraumatic and moist oral mucous membranes Eyes PERRL, EOMs intact bilaterally and conjunctivae normal Neck supple, no JVD, thyroid normal and no carotid bruits General: trachea midline Resp normal respiratory effort, no retractions, no use of accessory muscles and clearto auscultation bilaterally Auscultation: Negative for rales, rhonchi or wheezes Cardio regular rate, regular rhythm, S1 normal heart sound, S2 normal heart sound, no murmurs, no rub and no gallops GI normal to inspection, nondistended, normoactive bowel sounds, soft to palpation,non-tender and non-distended Extremity no clubbing, cyanosis or edema Skin no rashes or lesions noted General Skin Exam: no breakdown Neuro CN's II-XII intact bilaterally, moves all extremities, no focal motor deficits and no sensory deficits noted Neuro Narrative: Patient is alert but confused, she is able to speak a few words but does not carry on conversation. Sensorium / Orientation: awake Psych Psych Narrative: Patient is alert but confused Assessment & Plan Assessment/Plan (1) Closed intertrochanteric fracture of left hip: (2) Acute delirium: PLAN: Plan 1. Left intertrochanteric fracture secondary to osteoporosis-status postop day 3 insertion of intramedullary jules left femur-when patient is more alert and ableto participate, PT and OT will see patient, she will most likely need placement in a residential facility versus rehab facility. #2 type 2 diabetes-patient's blood sugars will be monitored, sliding scale insulin will be administered as needed #3 essential hypertension-patient will remain on her home medication #4 hyperlipidemia-patient is on a statin #5 bipolar disorder-patient does not currently appear to be on any bipolar medication, she is on antidepressants and anxiety medication. #6 chronic pain syndrome-according to the daughter, patient is on medical marijuana at home for pain #7 osteoporosis-patient is on Fosamax #8 encephalopathy-possibly secondary to medication reaction-probable narcotic reaction-patient's IV narcotics were stopped, she remains on Toradol for pain #9 acute blood loss anemia-probably secondary to blood loss from surgery- patient's hemoglobin is stable at this time, CBC will be rechecked tomorrow #10 stage IIIb chronic kidney disease secondary to type 2 diabetes-patient's renal function will be monitored, she is now receiving Toradol and unfortunatelyI do not have any other pain medication I can give this patient due to her encephalopathy and possible reaction to narcotics at this time. I do not feel the patient has had an acute ischemic stroke. .Total clinical time spent by myself addressing the patient's medical issues, reviewing all of her data, and collaborating with patient's care team: 35 minutes Charges/Coding Visit Charges Inpatient E&M: 44867 Subs Hosp L2 08/09/22 1511 <Electronically signed by John Short DO> Cosigner Signature (if applicable): CC: ~ Signed [facility] Work Phone: 1(463) 683-857406-27-2023 Progress note Author John Short [facility] August 08, 2022 6:38pm Note Date/Time August 08, 2022 6:38 pm [facility] Medical Records Department [address] [place] [address] Progress Note - Hospitalist 08/08/22 1832 MR#: [id number] Acct: [id number] Name: DONNA MARSH Rep #:[id number] : 1955 66 From: John Short DO PCP: ORESTES Cano Status:ADM IN Location: [place] [address] Reason for Visit Reason for Visit: Diagnoses Disorientation, unspecified (08/05/22) Displaced intertrochanteric fracture of left femur, initial encounter for closedfracture (08/05/22) Fall on same level from slipping, tripping and stumbling without subsequent striking against object, initial encounter (08/05/22) Subjective Subjective Patient was seen and examined today, she appeared confused this morning and I made the decision to stop her IV narcotics, I have decided to give the patient IV Toradol for pain-she will be watched closely for any evidence of GI bleeding. She has had no evidence of any GI bleeding at this time, her hemoglobin appearsto be stable at this time, I talked extensively with her family in person today during one of my visits. Objective Data Objective Data Vital Signs: Vital Signs Temp Pulse Resp BP Pulse Ox O2 Del Method O2 Flow Rate 97.7 F L 113 H 14 167/66 H 96 Room Air 2 08/08/22 16:55 08/08/22 16:55 08/08/22 16:55 08/08/22 16:55 08/08/22 16:55 08/08/22 16:55 08/08/22 07:30 Oxygen Flow Rate (L/min) 2 Oxygen Delivery Method Room Air Weight: 79.6 kg Body Mass Index (BMI) 30.1 Intake & Output: Intake and Output for Last 24 Hours 08/06/22 08/07/22 08/08/22 23:59 23:59 23:59 Intake Total 3032.50 / 3032.50 3460.00 / 3460.00 1781.25 / 1781.25 Output Total 325 / 525 200 / 200 Balance 2707.50 / 2507.50 3260.00 / 3260.00 1781.25 / 1781.25 Lab / Micro Data Result Diagrams: 08/07/22 22:24 08/08/22 11:07 Labs: Laboratory Results - last 24 hr 08/05/22 20:38: Crossmatch See Detail 08/07/22 20:51: POC Glucose 180 H 08/07/22 22:24: Hgb 9.7 L, Hct 28.9 L 08/08/22 05:07: Triglycerides 151, Cholesterol 122, LDL Cholesterol 57, VLDL Cholesterol 30, HDL Cholesterol 35 L 08/08/22 06:24: POC Glucose 249 H 08/08/22 11:07: Sodium 140, Potassium 3.5, Chloride 111 H, Carbon Dioxide 21.0, Anion Gap 8, BUN 29 H, Creatinine 1.08 H, Estim Creat Clear Calc 43.05, Est GFR (MDRD) Af Amer 65, Est GFR (MDRD) Non-Af 54 L, BUN/Creatinine Ratio 26.9 H, Glucose 263 H, Calcium 8.3 L 08/08/22 11:49: POC Glucose 260 H 08/08/22 16:40: POC Glucose 236 H Micro: Microbiology 08/07/22 08:45 Urine, Random Urine Culture - Preliminary Culture exhibits no growth. Rhythm Strip Rhythm Strip: Sinus Rhythm Rate: 90 Ectopy: None Physical Exam Const alert Constitutional Narrative: Patient is alert but confused, she is not able to carry on conversation with this examiner, she does speak a few words to the examiner but does not answer most questions directly. Orientation / Consciousness: awake HEENT normocephalic, head/scalp atraumatic and moist oral mucous membranes Eyes PERRL, EOMs intact bilaterally and conjunctivae normal Neck supple, no JVD, thyroid normal and no carotid bruits General: trachea midline Resp normal respiratory effort, no retractions, no use of accessory muscles and clearto auscultation bilaterally Auscultation: Negative for rales, rhonchi or wheezes Cardio regular rate, regular rhythm, S1 normal heart sound, S2 normal heart sound, no murmurs, no rub and no gallops GI normal to inspection, nondistended, normoactive bowel sounds, soft to palpation,non-tender and non-distended Extremity no clubbing, cyanosis or edema Skin no rashes or lesions noted General Skin Exam: no breakdown Neuro CN's II-XII intact bilaterally, moves all extremities, no focal motor deficits and no sensory deficits noted Neuro Narrative: Patient is alert but confused, she is able to speak a few words but does not carry on conversation. Sensorium / Orientation: awake Psych Psych Narrative: Patient is alert but confused Assessment & Plan Assessment/Plan (1) Acute delirium: (2) Closed intertrochanteric fracture of left hip: PLAN: Plan 1. Left intertrochanteric fracture secondary to osteoporosis-status postop day 2 insertion of intramedullary jules left femur-when patient is more alert and ableto participate, PT and OT will see patient, she will most likely need placement in a residential facility versus rehab facility. #2 type 2 diabetes-patient's blood sugars will be monitored, sliding scale insulin will be administered as needed #3 essential hypertension-patient will remain on her home medication #4 hyperlipidemia-patient is on a statin #5 bipolar disorder-patient does not currently appear to be on any bipolar medication, she is on antidepressants and anxiety medication. #6 chronic pain syndrome-according to the daughter, patient is on medical marijuana at home for pain #7 osteoporosis-patient is on Fosamax #8 encephalopathy-possibly secondary to medication reaction-probable narcotic reaction-patient's IV narcotics were stopped, she was placed on IV Toradol, she will be observed for improvement #9 acute blood loss anemia-probably secondary to blood loss from surgery- patient's hemoglobin is stable at this time, CBC will be rechecked tomorrow #10 stage IIIb chronic kidney disease secondary to type 2 diabetes-patient's renal function will be monitored, she is now receiving Toradol and unfortunatelyI do not have any other pain medication I can give this patient due to her encephalopathy and possible reaction to narcotics at this time. I do not feel the patient has had an acute ischemic stroke. .Total clinical time spent by myself addressing the patient's medical issues, reviewing all of her data, and collaborating with patient's care team: 35 minutes Charges/Coding Visit Charges Inpatient E&M: 07805 Subs Hosp L2 08/08/22 1838 <Electronically signed by John Short DO> Cosigner Signature (if applicable): CC: ~ Signed [facility] Work Phone: 1(901) 752-607606-27-2023 Progress note Author Dereck Ramirez [facility] August 08, 2022 5:42pm Note Date/Time August 08, 2022 5:42 pm [facility] Medical Records Department [address] [place] [address] Progress Note - Orthopedic 08/08/22 1737 MR#: [id number] Acct: [id number] Name: DONNA MARSH Rep #:[id number] : 1955 66 From: Dereck chandra DO PCP: ORESTES Cano Status:ADM IN Location: [place] [address] Subjective Subjective Patient seen and examined. Family at bedside. Significant agitation and confusion noted overnight and into the day today. Patient's status post 3 unitspacked red blood cells yesterday. Patient will respond yes or no to questions but is otherwise not conversant. Objective Data Objective Data Vital Signs: Vital Signs Temp Pulse Resp BP Pulse Ox O2 Del Method O2 Flow Rate 97.7 F L 113 H 14 167/66 H 96 Room Air 2 08/08/22 16:55 08/08/22 16:55 08/08/22 16:55 08/08/22 16:55 08/08/22 16:55 08/08/22 16:55 08/08/22 07:30 Oxygen Flow Rate (L/min) 2 Oxygen Delivery Method Room Air Weight: 175 lb 7.807 oz Body Mass Index (BMI) 30.1 Intake & Output: Intake and Output for Last 24 Hours 08/06/22 08/07/22 08/08/22 23:59 23:59 23:59 Intake Total 3032.50 / 3032.50 3460.00 / 3460.00 1781.25 / 1781.25 Output Total 325 / 525 200 / 200 Balance 2707.50 / 2507.50 3260.00 / 3260.00 1781.25 / 1781.25 Lab / Micro Data Result Diagrams: 08/07/22 22:24 08/08/22 11:07 Labs: Laboratory Results - last 24 hr 08/05/22 20:38: Crossmatch See Detail 08/07/22 17:34: POC Glucose 175 H 08/07/22 20:51: POC Glucose 180 H 08/07/22 22:24: Hgb 9.7 L, Hct 28.9 L 08/08/22 05:07: Triglycerides 151, Cholesterol 122, LDL Cholesterol 57, VLDL Cholesterol 30, HDL Cholesterol 35 L 08/08/22 06:24: POC Glucose 249 H 08/08/22 11:07: Sodium 140, Potassium 3.5, Chloride 111 H, Carbon Dioxide 21.0, Anion Gap 8, BUN 29 H, Creatinine 1.08 H, Estim Creat Clear Calc 43.05, Est GFR (MDRD) Af Amer 65, Est GFR (MDRD) Non-Af 54 L, BUN/Creatinine Ratio 26.9 H, Glucose 263 H, Calcium 8.3 L 08/08/22 11:49: POC Glucose 260 H 08/08/22 16:40: POC Glucose 236 H Micro: Microbiology 08/07/22 08:45 Urine, Random Urine Culture - Preliminary Culture exhibits no growth. Rhythm Strip Rhythm Strip: Sinus Rhythm Rate: 90 Ectopy: None Physical Exam Narrative General - A&Ox person, agitated. Left lower extremity -wiggles toes spontaneously. DP pulse 2+. Sanguinous drainage noted on dressings, with diffuse subcutaneous ecchymosis noted along the lateral hip. Compartments are soft and compressible. No impending skin necrosis noted. No palpable fluctuance. Assessment & Plan Assessment/Plan (1) Closed intertrochanteric fracture of left hip: PLAN: POD#2 s/p left femur CMN -Patient has significant delirium still present. Judicious use of narcotic painmedicine. Defer to primary regarding further management of acute delirium -Acute blood loss anemia in the setting of subcutaneous and likely intramuscularhematoma. Recheck CBC in a.m. Hold Lovenox at this time. Dry sterile dressingchanges PRN. SCDs and teds for DVT prophylaxis. No plan to return to the OR at this time. -Mobilize with therapy as tolerated. Weightbearing as tolerated left lower extremity. -Will follow [id number] <Electronically signed by Dereck Ramirez DO> Cosigner Signature (if applicable): CC: ~ Signed [facility] Work Phone: 1(512) 372-646906-26-2023 Progress note Author John Short [facility] August 07, 2022 7:13pm Note Date/Time August 07, 2022 7:13 pm [facility] Medical Records Department [address] [place] [address] Progress Note - Hospitalist 08/07/22 190 MR#: [id number] Acct: [id number] Name: DONNA MARSH Rep #:[id number] : 1955 66 From: John Short DO PCP: ORESTES Cano Status:ADM IN Location: [place] [id number] Reason for Visit Reason for Visit: Diagnoses Displaced intertrochanteric fracture of left femur, initial encounter for closedfracture (08/05/22) Fall on same level from slipping, tripping and stumbling without subsequent striking against object, initial encounter (08/05/22) Subjective Subjective Patient was seen and examined today, had extensive conversations with the patient and her daughter who was in the room at the time my examination today. A stroke alert was called on the patient early this morning, she had difficulty with her speech, an MRI was ordered today but the patient was not able to sit still for the MRI and it was a poor quality study, there was no MRI evidence of acute or subacute ischemic infarct but the study was limited. Upon my examination, patient responded appropriately to most of my questions, she did have trouble finding words at times but had no visible neurological deficits. Isuspect patient may have had an adverse reaction to a narcotic or perhaps Zanaflex, we will need to watch the patient for side effects from narcotics, I have stopped her Zanaflex. Patient's hemoglobin dropped precipitously this morning, her hemoglobin earlier this morning was 7.7, yesterday it was 12.4. She was given 1 unit of packed redblood cells and her hemoglobin was repeated, it was 6.6 at approximately 1 PM today, I ordered 2 more units of packed red blood cells, she has no evidence of rectal bleeding, hematemesis, or overt severe blood loss, there is some drainagefrom her surgical incision site, I talked multiple times with orthopedic surgerytoday, a CT of her left upper leg was obtained today which showed presence of a hematoma. At this time there is no plans on surgically exploring the area. I explained to the patient and the patient's family that her blood count will be repeated tonight. I also told the patient that I felt it was necessary for her to go to a rehab facility or residential facility for short-term rehab services rather than go home from the hospital. Patient did not appear to give me any pushback aboutthis. Objective Data Objective Data Vital Signs: Vital Signs Temp Pulse Resp BP Pulse Ox O2 Del Method O2 Flow Rate 98.3 F 110 H 17 112/89 H 97 Nasal Cannula 2 08/07/22 18:25 08/07/22 18:25 08/07/22 18:25 08/07/22 18:25 08/07/22 18:25 08/07/22 18:25 08/07/22 18:25 Oxygen Flow Rate (L/min) 2 Oxygen Delivery Method Nasal Cannula Weight: 79.6 kg Body Mass Index (BMI) 30.1 Intake & Output: Intake and Output for Last 24 Hours 08/05/22 08/06/22 08/07/22 23:59 23:59 23:59 Intake Total 3032.50 / 3032.50 3060.00 / 3060.00 Output Total 325 / 525 200 / 200 Balance 2707.50 / 2507.50 2860.00 / 2860.00 Lab / Micro Data Result Diagrams: 08/07/22 12:52 08/07/22 03:59 Labs: Laboratory Results - last 24 hr 08/05/22 20:38: Crossmatch See Detail 08/05/22 20:38: Crossmatch See Detail 08/05/22 21:00: Vitamin D 25-Hydroxy 99.6 08/06/22 21:25: POC Glucose 193 H 08/07/22 02:12: POC Glucose 201 H 08/07/22 03:59: WBC 26.6 H, RBC 2.63 L, Hgb 7.7 L, Hct 24.4 L, MCV 92.8, MCH 29.3, MCHC 31.6 L, RDW Std Deviation 43.0, RDW Coeff of Gerhard 12.8, Plt Count 233,MPV 9.8, Immature Gran % (Auto) 0.600, Neut % (Auto) 84.1 H, Lymph % (Auto) 8.6 L, Long % (Auto) 6.6, Eos % (Auto) 0.0, Baso % (Auto) 0.1, Absolute Neuts (auto)22.3 H, Absolute Lymphs (auto) 2.29, Nucleated RBC % 0, Diff Path Review Reviewed 08/07/22 03:59: Sodium 140, Potassium 4.0, Chloride 109 H, Carbon Dioxide 21.0, Anion Gap 10, BUN 31 H, Creatinine 1.68 H, Estim Creat Clear Calc 27.68, Est GFR(MDRD) Af Amer 39 L, Est GFR (MDRD) Non-Af 32 L, BUN/Creatinine Ratio 18.5, Glucose 190 H, Calcium 8.2 L 08/07/22 06:20: Ammonia 25.0 08/07/22 06:20: Lactic Acid 2.2 H* 08/07/22 06:42: POC Glucose 197 H 08/07/22 07:15: Troponin I High Sens 08/07/22 08:45: Urine Color Yellow, Urine Clarity Sl. Cloudy, Urine pH 5.0, Ur Specific [place] 1.015, Urine Protein 30 H, Urine Glucose (UA) 250 H, Urine Ketones 5 H, Urine Occult Blood Negative, Urine Nitrite Negative, Urine Bilirubin Negative, Urine Urobilinogen Normal, Ur Leukocyte Esterase 25 H, UrineRBC 0 SEEN, Urine WBC 0-5 SEEN, Ur Squamous Epith Cells 0-5 SEEN, Urine Bacteria0 SEEN, Urine Mucus 0 SEEN 08/07/22 09:25: Troponin I High Sens 30 08/07/22 09:40: Lactic Acid 2.1 H* 08/07/22 12:35: POC Glucose 231 H 08/07/22 12:52: Troponin I High Sens 08/07/22 12:52: WBC 16.4 H, RBC 2.22 L, Hgb 6.6 L, Hct 21.1 L, MCV 95.0, MCH 29.7, MCHC 31.3 L, RDW Std Deviation 44.3 H, RDW Coeff of Gerhard 12.8, Plt Count 155, MPV 9.5, Immature Gran % (Auto) 0.800, Neut % (Auto) 83.4 H, Lymph % (Auto)9.3 L, Long % (Auto) 6.3, Eos % (Auto) 0.1, Baso % (Auto) 0.1, Absolute Neuts (auto) 13.7 H, Absolute Lymphs (auto) 1.52, Nucleated RBC % 0 08/07/22 17:34: POC Glucose 175 H ABG Data ABG results: ABG 08/07/22 05:45 Specimen Type ART Sample Site L Radial pH 7.55 H Bicarbonate Actual 20.7 L Total CO2 21 Base Excess -2 O2 Saturation 89 L ABG pCO2 23.9 L ABG pO2 47 L Kyree Test Positive Radiography Diagnostic Testing: Radiology Impression Chest X-Ray 08/06/22 04:50 IMPRESSION: No radiographic evidence of acute cardiopulmonary disease. Electronically Signed: Fátima Bucio MD at 21:28 EDT Reading Location ID and State: [facility] / Tel , Service support , Hip/Pelvis X-Ray 08/06/22 06:30 IMPRESSION: Intraoperative images obtained for hardware localization. Electronically Signed: Fátima Bucio MD at 23:57 EDT Reading Location ID and State: [id number] / Tel , Service support , Brain CT 08/07/22 04:53 IMPRESSION: Negative Brain CT without contrast. Electronically Signed: Trevor Farmer MD at 5:20 EDT , ADDENDUM: 08/07/22 0529 IMPRESSION: Negative Brain CT without contrast. N.B. : The above Results were Read Back by Trevor Farmer MD to Home Valverde MD, and understanding confirmed on 08/07/2022 05:23:01 (ET). Electronically Signed: Trevor Farmer MD at 5:20 EDT , ADDENDUM: 08/07/22 0536 IMPRESSION: Negative Brain CT without contrast. N.B. : The above Results were Read Back by Trevor Farmer MD to Home Valverde MD, and understanding confirmed on 08/07/2022 05:29:17 (ET). Electronically Signed: Trevor Farmer MD at 5:20 EDT Reading Location ID and State: [facility] / [place] Tel , Service support , Head/Neck CTA 08/07/22 05:47 IMPRESSION: No hemodynamically significant stenosis in the main intracranial arteries are in the arteries of neck. Electronically Signed: Trevor Farmer MD at 6:23 EDT Reading Location ID and State: [facility] / [place] Tel , Service support , ADDENDUM: 08/07/22 0736 IMPRESSION: No hemodynamically significant stenosis in the main intracranial arteries are in the arteries of neck. N.B. : The above Results were Read Back by Trevor Farmer MD to Home Valverde and understanding confirmed on 08/07/2022 07:29:46 (ET). Electronically Signed: Trevor Farmer MD at 6:23 EDT Reading Location ID and State: [facility] / [place] Tel , Service support , Chest X-Ray 08/07/22 05:58 IMPRESSION: No radiographic evidence of acute cardiopulmonary disease. Electronically Signed: Trevor Farmer MD at 8:03 EDT , Brain MRI 08/07/22 06:47 IMPRESSION: 1. No MRI evidence of acute or subacute ischemic infarct. 2. Limited study was performed without FLAIR sequence for stroke evaluation. Electronically Signed: Adria Feliz MD at 11:36 EDT , Lower Extremity CT 08/07/22 13:30 IMPRESSION: Osteopenia with postsurgical changes dynamic hip screw placement. Impacted comminuted intertrochanteric fracture with no callus formation. Soft tissue mass adjacent to the proximal femur extending proximally behind the gluteal musculature compatible with hematoma. Electronically Signed: Ajit Salcido MD at 14:26 EDT , Rhythm Strip Rhythm Strip: Sinus Rhythm Rate: 90 Ectopy: None Physical Exam Const Constitutional Narrative: Patient is somewhat somnolent, she does respond to simple questions appropriately for the most part, she did not seem to understand that she had hada hip fracture. General Appearance: cooperative, well kempt and well developed Orientation / Consciousness: oriented to person HEENT normocephalic, head/scalp atraumatic and moist oral mucous membranes Eyes PERRL, EOMs intact bilaterally and conjunctivae normal Neck supple, no JVD, thyroid normal and no carotid bruits General: trachea midline Resp normal respiratory effort, no retractions, no use of accessory muscles and clearto auscultation bilaterally Auscultation: Negative for rales, rhonchi or wheezes Cardio regular rate, regular rhythm, S1 normal heart sound, S2 normal heart sound, no murmurs, no rub and no gallops GI normal to inspection, nondistended, normoactive bowel sounds, soft to palpation,non-tender and non-distended Skin no rashes or lesions noted General Skin Exam: no breakdown Neuro oriented x3, CN's II-XII intact bilaterally, no focal motor deficits and no sensory deficits noted Neuro Narrative: Patient is somewhat somnolent, she does respond to simple questions appropriately, she does not appear to have any dysarthria at the time my examination. Sensorium / Orientation: awake and alert Psych Psych Narrative: Patient is somewhat somnolent, she does respond appropriately to simple questions Assessment & Plan Assessment/Plan (1) Acute delirium: (2) Closed intertrochanteric fracture of left hip: PLAN: Plan 1. Left intertrochanteric fracture secondary to osteoporosis-status postop day 1 insertion of intramedullary jules left femur-again I talked extensively with orthopedic surgery today due to the patient's drop in her hemoglobin, at this time there is no plan for surgical intervention, she does not appear to have a hematoma in the left leg, I assume that her drop in hemoglobin could be from thehip fracture and her surgery. She will be monitored for any signs of blood loss. #2 type 2 diabetes-patient's blood sugars will be monitored, sliding scale insulin will be administered as needed #3 essential hypertension-patient will remain on her home medication #4 hyperlipidemia-patient is on a statin #5 bipolar disorder-patient does not currently appear to be on any bipolar medication, she is on antidepressants and anxiety medication. #6 chronic pain syndrome-according to the daughter, patient is on medical marijuana at home for pain #7 osteoporosis-patient is on Fosamax #8 mild encephalopathy-possibly secondary to medication reaction (narcotics, muscle relaxant)-patient will be monitored, patient does not have any evidence of an acute stroke at this time per my evaluation. MRI was not a good study today, she will be reevaluated tomorrow and perhaps will need a head CT if we need to definitely rule out a significant stroke. #9 acute blood loss anemia-probably secondary to blood loss from surgery- etiology is unclear at this point, patient will be monitored for any signs of blood loss, hemoglobin will be rechecked tonight after she receives her packed red blood cells. Total clinical time spent by myself addressing the patient's medical issues, reviewing all of her data, and collaborating with patient's care team: 50 minutes Charges/Coding Visit Charges Inpatient E&M: 54085 Subs Hosp L3 08/07/221912 <Electronically signed by John Short DO> Cosigner Signature (if applicable): CC: ~ Signed [facility] Work Phone: 1(108) 452-462706-26-2023 Progress note Author Dereck Ramirez [facility] Iveth 26th, 2023 7:13am Note Date/Time August 07, 2022 7:13 am [facility] Medical Records Department [address] [place] [address] Progress Note - Orthopedic 08/07/22705 MR#: [id number] Acct: [id number] Name: DONNA MARSH Rep #:[id number] : 1955 66 From: Dereck chandra DO PCP: ORESTES Cano Status:ADM IN Location: [place] [address] 1 Subjective Subjective Patient seen and examined. Reports pain is improved in her left hip. She is unclear about the details of last evening which resulted in a stroke alert and stroke work-up due to confusion. She states people kept coming in my room . She appears comfortable this morning. She is answering questions appropriately. She denies any fevers, chills, nausea or vomiting, chest pain or shortness of breath, numbness or tingling. Objective Data Objective Data Vital Signs: Vital Signs Temp Pulse Resp BP Pulse Ox O2 Del Method O2 Flow Rate 97.9 F 109 H 18 116/47 L 94 Nasal Cannula 3 08/07/22 06:05 08/07/22 06:05 08/07/22 06:09 08/07/22 06:05 08/07/22 06:09 08/07/22 06:09 08/07/22 06:09 Oxygen Flow Rate (L/min) 3 Oxygen Delivery Method Nasal Cannula Weight: 175 lb 7.807 oz Body Mass Index (BMI) 30.1 Intake & Output: Intake and Output for Last 24 Hours 08/05/22 08/06/22 08/07/22 23:59 23:59 23:59 Intake Total 3032.50 / 3032.50 1470.83 / 1470.83 Output Total 325 / 525 200 / 200 Balance 2707.50 / 2507.50 1270.83 / 1270.83 Lab / Micro Data Result Diagrams: 08/07/22 03:59 08/07/22 03:59 Labs: Laboratory Results - last 24 hr 08/05/22 20:38: Crossmatch See Detail 08/06/22 09:08: POC Glucose 305 H 08/06/22 10:19: POC Glucose 421 H 06/25/23 16:22: POC Glucose 312 H 08/06/22 21:25: POC Glucose 193 H 08/07/22 02:12: POC Glucose 201 H 08/07/22 03:59: WBC 26.6 H, RBC 2.63 L, Hgb 7.7 L, Hct 24.4 L, MCV 92.8, MCH 29.3, MCHC 31.6 L, RDW Std Deviation 43.0, RDW Coeff of Gerhard 12.8, Plt Count 233,MPV 9.8, Immature Gran % (Auto) 0.600, Neut % (Auto) 84.1 H, Lymph % (Auto) 8.6 L, Long % (Auto) 6.6, Eos % (Auto) 0.0, Baso % (Auto) 0.1, Absolute Neuts (auto)22.3 H, Absolute Lymphs (auto) 2.29, Nucleated RBC % 0, Diff Path Review June08/07/22 03:59: Sodium 140, Potassium 4.0, Chloride 109 H, Carbon Dioxide 21.0, Anion Gap 10, BUN 31 H, Creatinine 1.68 H, Estim Creat Clear Calc 27.68, Est GFR(MDRD) Af Amer 39 L, Est GFR (MDRD) Non-Af 32 L, BUN/Creatinine Ratio 18.5, Glucose 190 H, Calcium 8.2 L 08/07/22 06:20: Ammonia 25.0 ABG Data ABG results: ABG 08/07/22 05:45 Specimen Type ART Sample Site L Radial pH 7.55 H Bicarbonate Actual 20.7 L Total CO2 21 Base Excess -2 O2 Saturation 89 L ABG pCO2 23.9 L ABG pO2 47 L Kyree Test Positive Radiography Diagnostic Testing: Radiology Impression Chest X-Ray 08/06/22 04:50 IMPRESSION: No radiographic evidence of acute cardiopulmonary disease. Electronically Signed: Fátima Bucio MD at 21:28 EDT Reading Location ID and State: [place] / Tel , Service support , Hip/Pelvis X-Ray 08/06/22 06:30 IMPRESSION: Intraoperative images obtained for hardware localization. Electronically Signed: Fátima Bucio MD at 23:57 EDT Reading Location ID and State: [place] / Tel , Service support , Brain CT 08/07/22 04:53 IMPRESSION: Negative Brain CT without contrast. Electronically Signed: Trevor Farmer MD at 5:20 EDT , ADDENDUM: 08/07/22 0529 IMPRESSION: Negative Brain CT without contrast. N.B. : The above Results were Read Back by Trevor Farmer MD to Home Valverde MD, and understanding confirmed on 08/07/2022 05:23:01 (ET). Electronically Signed: Trevor Farmer MD at 5:20 EDT Reading Location ID and State: [facility] / [place] Tel , Service support , ADDENDUM: 08/07/22 0536 IMPRESSION: Negative Brain CT without contrast. N.B. : The above Results were Read Back by Trevor Farmer MD to Home Valverde MD, and understanding confirmed on 08/07/2022 05:29:17 (ET). Electronically Signed: Trevor Farmer MD at 5:20 EDT Reading Location ID and State: [facility] / [place] Tel , Service support , Head/Neck CTA 08/07/22 05:47 IMPRESSION: No hemodynamically significant stenosis in the main intracranial arteries are in the arteries of neck. Electronically Signed: Trevor Farmer MD at 6:23 EDT , Rhythm Strip Rhythm Strip: Sinus Rhythm Rate: 90 Ectopy: None Physical Exam Narrative General - A&Ox3, NAD. VSS/AF Left lower extremity -proximal incisional dressing is saturated with serosanguineous fluid otherwise clean dry and intact. No cyst noted. Compartments are soft and compressible without obvious outward signs of expanding hematoma. SILT Sural, Saphenous, SPN, DPN, Tibial N. distributions. DP, PT 2+. BCR. DF, PF, EHL 5/5. No calf TTP. Assessment & Plan Assessment/Plan (1) Closed intertrochanteric fracture of left hip: PLAN: POD#1 s/p left femur CMN -Significant drop in hemoglobin from preoperative 12.4 to 7.7 this morning. I certainly expect some of this is due to acute blood loss anemia secondary to surgery and some postoperative bleeding as well as dilutionary component. I do not suspect an obvious subcutaneous or intramuscular hematoma on exam this morning. I ordered a recheck of her H&H at noon today. Further work-up of acute anemia may be considered. - Pain control -judicious use of narcotics given postoperative confusion. Deferto primary regarding delirium/confusion work-up. - Medicine following for medical management - PT/OT-weightbearing as tolerated left lower extremity - DVT PPX -Lovenox given this morning, SCDs, KENISHA espino, early mobilization - Case management - D/C planning 08/07/22712 <Electronically signed by Dereck Ramirez DO> Cosigner Signature (if applicable): CC: ~ Signed [facility] Work Phone: 1(328) 728-430006-26-2023 Progress note Author Home Valverde [facility] August 07, 2022 6:47am Note Date/Time August 07, 2022 6:09 am [facility] Medical Records Department [address] [place] [address] Progress Note - Hospitalist 08/07/22 06 MR#: [id number] Acct: [id number] Name: DONNA MARSH Rep #:[id number] : 1955 66 From: Home Valverde MD PCP: ORESTES Cano Status:ADM IN Location: [place] [id number] Reason for Visit Reason for Visit: Diagnoses Displaced intertrochanteric fracture of left femur, initial encounter for closedfracture (08/05/22) Fall on same level from slipping, tripping and stumbling without subsequent striking against object, initial encounter (08/05/22) Subjective Subjective Stroke alert was called at about 4:49 AM on 08/07/2022. Pending as patient was making nonsensical conversation. Hemoglobin had dropped from 12.4 a day prior7.7. Patient had a sinus tach entire day and was complaining of chest pain. Patient was evaluated by stroke neurologist. Upon further questioning nurse stated that patient's was alert and oriented x3 before surgery but after surgerydeclined cognitively gradually. Blood glucose is not low; 200 and 190. Patient was taken to surgery at about 7:30 AM on 08/06/2022. Per stroke tele-neurologistlast time known well would be when patient was taken to surgery. Radiologist called saying that CT head stroke protocol was negative. Per nurse NIH stroke scale was 12 with inability to test left leg secondary to recent fracture and surgery. Patient has some obvious word salad and inability to comprehend most words. Per Teleneurologist it cannot be stated clearly that patient has a stroke. Neither can it be stated that patient does not have a stroke. However patient is not a candidate of thrombolytics by the neurologist assessment. Patient is in DURAN. Ordered to give fluids and then get a CTA of head and neck. We will transfer patient to be a progressive care unit after tPA head and neck has been obtained. Will transfer patient to the progressive care unit and do serial NIH's. Objective Data Objective Data Vital Signs: Vital Signs Temp Pulse Resp BP Pulse Ox O2 Del Method O2 Flow Rate 99.5 F H 120 H 28 H 160/59 H 98 Room Air 2 08/07/22 04:21 08/07/22 04:21 08/07/22 04:21 08/07/22 04:21 08/07/22 04:21 08/07/22 04:21 08/06/22 09:30 Oxygen Flow Rate (L/min) 2 Oxygen Delivery Method Room Air Weight: 79.6 kg Body Mass Index (BMI) 30.1 Intake & Output: Intake and Output for Last 24 Hours 08/05/22 08/06/22 08/07/22 23:59 23:59 23:59 Intake Total 3032.50 / 3032.50 1000 / 1000 Output Total 325 / 525 200 / 200 Balance 2707.50 / 2507.50 800 / 800 Lab / Micro Data Result Diagrams: 08/07/22 03:59 08/07/22 03:59 Labs: Laboratory Results - last 24 hr 08/05/22 20:38: Crossmatch See Detail 08/06/22 05:41: WBC 15.5 H, RBC 4.22, Hgb 12.4, Hct 40.0, MCV 94.8, MCH 29.4, MCHC 31.0 L, RDW Std Deviation 42.3, RDW Coeff of Gerhard 12.2, Plt Count 273, MPV 9.9, Immature Gran % (Auto) 0.700, Neut % (Auto) 85.1 H, Lymph % (Auto) 9.0 L, Long % (Auto) 4.6, Eos % (Auto) 0.3, Baso % (Auto) 0.3, Absolute Neuts (auto) 13.2 H, Absolute Lymphs (auto) 1.39, Nucleated RBC % 0 08/06/22 05:41: Sodium 140, Potassium 4.1, Chloride 108 H, Carbon Dioxide 26.0, Anion Gap 6, BUN 20 H, Creatinine 0.98, Estim Creat Clear Calc 47.44, Est GFR (MDRD) Af Amer 73, Est GFR (MDRD) Non-Af 60, BUN/Creatinine Ratio 20.4 H, Glucose 137 H, Calcium 8.5 08/06/22 05:42: POC Glucose 140 H 08/06/22 09:08: POC Glucose 305 H 08/06/22 10:19: POC Glucose 421 H 08/06/22 16:22: POC Glucose 312 H 08/06/22 21:25: POC Glucose 193 H 08/07/22 02:12: POC Glucose 201 H 08/07/22 03:59: WBC 26.6 H, RBC 2.63 L, Hgb 7.7 L, Hct 24.4 L, MCV 92.8, MCH 29.3, MCHC 31.6 L, RDW Std Deviation 43.0, RDW Coeff of Gerhard 12.8, Plt Count 233, MPV 9.8, Immature Gran % (Auto) 0.600, Neut % (Auto) 84.1 H, Lymph % (Auto) 8.6 L, Long % (Auto) 6.6, Eos % (Auto) 0.0, Baso % (Auto) 0.1, Absolute Neuts (auto)22.3 H, Absolute Lymphs (auto) 2.29, Nucleated RBC % 0, Diff Path Review June08/07/22 03:59: Sodium 140, Potassium 4.0, Chloride 109 H, Carbon Dioxide 21.0, Anion Gap 10, BUN 31 H, Creatinine 1.68 H, Estim Creat Clear Calc 27.68, Est GFR(MDRD) Af Amer 39 L, Est GFR (MDRD) Non-Af 32 L, BUN/Creatinine Ratio 18.5, Glucose 190 H, Calcium 8.2 L ABG Data ABG results: ABG 08/07/22 05:45 Specimen Type ART Sample Site L Radial pH 7.55 H Bicarbonate Actual 20.7 L Total CO2 21 Base Excess -2 O2 Saturation 89 L ABG pCO2 23.9 L ABG pO2 47 L Kyree Test Positive Radiography Diagnostic Testing: Radiology Impression Chest X-Ray 08/06/22 04:50 IMPRESSION: No radiographic evidence of acute cardiopulmonary disease. Electronically Signed: Fátima Bucio MD at 21:28 EDT Reading Location ID and State: [place] / Tel , Service support , Hip/Pelvis X-Ray 08/06/22 06:30 IMPRESSION: Intraoperative images obtained for hardware localization. Electronically Signed: Fátima Bucio MD at 23:57 EDT Reading Location ID and State: [address] / Tel , Service support , Brain CT 08/07/22 04:53 IMPRESSION: Negative Brain CT without contrast. Electronically Signed: Trevor Farmer MD at 5:20 EDT , ADDENDUM: 08/07/22 0529 IMPRESSION: Negative Brain CT without contrast. N.B. : The above Results were Read Back by Trevor Farmer MD to Home Valverde MD, and understanding confirmed on 08/07/2022 05:23:01 (ET). Electronically Signed: Trevor Farmer MD at 5:20 EDT Reading Location ID and State: [facility] / [place] Tel , Service support , ADDENDUM: 08/07/22 0536 IMPRESSION: Negative Brain CT without contrast. N.B. : The above Results were Read Back by Trevor Farmer MD to Home Valverde MD, and understanding confirmed on 08/07/2022 05:29:17 (ET). Electronically Signed: Trevor Farmer MD at 5:20 EDT , Rhythm Strip Rhythm Strip: Sinus Rhythm Rate: 90 Ectopy: None 08/07/22 0647 <Electronically signed by Home Valverde MD> Cosigner Signature (if applicable): CC: ~ Signed [facility] Work Phone: 1(698) 802-762306-25-2023 Progress note Author [facility] August 06, 2022 5:23pm Note Date/Time August 06, 2022 5:05 pm [facility] Medical Records Department [address] [place] [address] Progress Note - Hospitalist 08/06/22 1701 MR#: [id number] Acct: [id number] Name: DONNA MARSH Rep #:[id number] : 1955 66 From: John Short DO PCP: ORESTES Cano Status[facility] Reason for Visit Reason for Visit: Diagnoses Displaced intertrochanteric fracture of left femur, initial encounter for closedfracture (08/05/22) Fall on same level from slipping, tripping and stumbling without subsequent striking against object, initial encounter (08/05/22) Subjective Subjective Patient was seen and examined today, I talked with her daughter who was in the room at the time my examination, it appears that they would like the patient to go to short-term residential when she is discharged from the hospital, I think this is a good idea also because she has been having some problems ambulating at home prior to coming in for this hip fracture. Patient underwent gamma nail insertion today for repair of left intertrochanteric fracture, patient has been tachycardic after surgery, I have elected to give the patient some IV fluids and place her on telemetry. Objective Data Objective Data Vital Signs: Vital Signs Temp Pulse Resp BP Pulse Ox O2 Del Method O2 Flow Rate 98.7 F 129 H 14 118/67 94 Room Air 2 08/06/22 14:00 08/06/22 14:00 08/06/22 14:00 08/06/22 14:00 08/06/22 14:00 08/06/22 14:00 08/06/22 09:30 Oxygen Flow Rate (L/min) 2 Oxygen Delivery Method Room Air Weight: 79.6 kg Body Mass Index (BMI) 30.1 Intake & Output: Intake and Output for Last 24 Hours 08/04/22 08/05/22 08/06/22 23:59 23:59 23:59 Intake Total 1246.25 / 1246.25 Output Total 200 / 200 Balance 1046.25 / 1046.25 Lab / Micro Data Result Diagrams: 08/06/22 05:41 08/06/22 05:41 Labs: Laboratory Results - last 24 hr 08/05/22 20:42: WBC 16.1 H, RBC 4.16 L, Hgb 12.3, Hct 39.0, MCV 93.8, MCH 29.6, MCHC 31.5 L, RDW Std Deviation 42.2, RDW Coeff of Gerhard 12.1, Plt Count 248, MPV 9.9, Immature Gran % (Auto) 0.600, Neut % (Auto) 89.8 H, Lymph % (Auto) 6.0 L, Long % (Auto) 3.2, Eos % (Auto) 0.2, Baso % (Auto) 0.2, Absolute Neuts (auto) 14.5 H, Absolute Lymphs (auto) 0.97, Nucleated RBC % 0 08/05/22 20:42: PT 14.3, INR 1.1 08/05/22 20:42: Sodium 139, Potassium 4.0, Chloride 110 H, Carbon Dioxide 23.0, Anion Gap 6, BUN 20 H, Creatinine 1.03 H, Estim Creat Clear Calc 45.14, Est GFR (MDRD) Af Amer 68, Est GFR (MDRD) Non-Af 57 L, BUN/Creatinine Ratio 19.4, Glucose 150 H, Calcium 9.1, Total Bilirubin 0.70, AST 18, ALT 20, Alkaline Phosphatase 77, Total Protein 6.9, Albumin 3.6, Globulin 3.3, Albumin/Globulin Ratio 1.1 08/05/22 20:42: Blood Type O POSITIVE, Antibody Screen NEGATIVE 08/06/22 05:41: WBC 15.5 H, RBC 4.22, Hgb 12.4, Hct 40.0, MCV 94.8, MCH 29.4, MCHC 31.0 L, RDW Std Deviation 42.3, RDW Coeff of Gerhard 12.2, Plt Count 273, MPV 9.9, Immature Gran % (Auto) 0.700, Neut % (Auto) 85.1 H, Lymph % (Auto) 9.0 L, Long % (Auto) 4.6, Eos % (Auto) 0.3, Baso % (Auto) 0.3, Absolute Neuts (auto) 13.2 H, Absolute Lymphs (auto) 1.39, Nucleated RBC % 0 08/06/22 05:41: Sodium 140, Potassium 4.1, Chloride 108 H, Carbon Dioxide 26.0, Anion Gap 6, BUN 20 H, Creatinine 0.98, Estim Creat Clear Calc 47.44, Est GFR (MDRD) Af Amer 73, Est GFR (MDRD) Non-Af 60, BUN/Creatinine Ratio 20.4 H, Glucose 137 H, Calcium 8.5 08/06/22 05:42: POC Glucose 140 H 08/06/22 09:08: POC Glucose 305 H 08/06/22 10:19: POC Glucose 421 H Radiography Diagnostic Testing: Radiology Impression Ribs w/Chest X-Ray 08/05/22 18:05 IMPRESSION: Old right rib fractures. Electronically Signed: Keaton Pineda DO at 20:07 EDT , Brain CT 08/05/22 18:20 IMPRESSION: Normal unenhanced CT scan of the brain. Electronically Signed: Keaton Pineda DO at 18:45 EDT , Cervical Spine CT 08/05/22 18:20 IMPRESSION: Degenerative changes changes and discogenic disease as noted of the cervical spine. Electronically Signed: Keaton Pineda DO at 18:54 EDT , Hip/Pelvis X-Ray 08/05/22 18:30 IMPRESSION: Possible nondisplaced intertrochanteric fracture of the left femur. Electronically Signed: Keaton Pineda at 20:10 EDT , Rhythm Strip Rhythm Strip: Sinus Rhythm Rate: 90 Ectopy: None Physical Exam Const no apparent distress Constitutional Narrative: Patient is somnolent, she does respond to painful stimuli and responds to verbalstimuli but does not carry on a conversation. General Appearance: cooperative, well kempt and well developed HEENT normocephalic, head/scalp atraumatic and moist oral mucous membranes Eyes PERRL, EOMs intact bilaterally and conjunctivae normal Neck supple, no JVD, thyroid normal and no carotid bruits General: trachea midline Resp normal respiratory effort, no retractions, no use of accessory muscles and clearto auscultation bilaterally Auscultation: Negative for rales, rhonchi or wheezes Cardio regular rate, regular rhythm, S1 normal heart sound, S2 normal heart sound, no murmurs, no rub and no gallops GI normal to inspection, nondistended, normoactive bowel sounds, soft to palpation,non-tender and non-distended Extremity no clubbing, cyanosis or edema Skin no rashes or lesions noted General Skin Exam: no breakdown Neuro CN's II-XII intact bilaterally, no focal motor deficits and no sensory deficits noted Neuro Narrative: Patient is somnolent, she responds to painful and verbal stimuli Psych Psych Narrative: Patient is somnolent Assessment & Plan Assessment/Plan (1) Closed intertrochanteric fracture of left hip: PLAN: Plan 1. Left intertrochanteric fracture secondary to osteoporosis-status postop day 0 insertion of intramedullary jules left femur-I talked briefly with the patient'sdaughter and son, they do not know if the patient will consent to going to an extended care facility for short-term rehab services, I will talk with the patient tomorrow about this, according to patient's daughter, patient is not active at home and is forgetful at times, she still does drive and the daughter states that she lives around the house mostly and does not exercise. #2 type 2 diabetes-patient's blood sugars will be monitored, sliding scale insulin will be administered as needed #3 essential hypertension-patient will remain on her home medication #4 hyperlipidemia-patient is on a statin #5 bipolar disorder-patient does not currently appear to be on any bipolar medication, she is on antidepressants and anxiety medication. #6 chronic pain syndrome-according to the daughter, patient is on medical marijuana at home for pain #7 osteoporosis-patient is on Fosamax Total clinical time spent by myself addressing the patient's medical issues, reviewing all of her data, and collaborating with patient's care team: 50 minutes Charges/Coding Visit Charges Inpatient E&M: 69424 Subs Hosp L2 08/06/221722 <Electronically signed by John Short DO> Cosigner Signature (if applicable): CC: ~ Signed [facility] Work Phone: 1(363) 517-792106-25-2023 Procedure [facility] 08-05-2022 History and physical note Author Home Valverde [facility] August 05, 2022 9:52pm Note Date/Time August 05, 2022 8:27 pm [facility] Medical Records Department [address] [place] [address] H&P Exam - Hospitalist 08/05/222026 MR#: [id number] Acct: [id number] Name: DONNA MARSH Rep #:[id number] : 1955 66 From: Home Valverde MD PCP: ORESTES Cano Status:AD[place] [facility] [id number] HPI - General General Date of Admission: 08/05/22 Date of Service: 08/05/22 Chief Complaint: Fall HPI Narrative DONNA MARSH, is a 66 F with a significant history of hypertension; diabetes mellitus and foot drop who presents emergency department with a fall. Reportedly patient fell due to having foot drop. Her fall was mechanical. She landed on her left side and has excruciating pain of her left lower extremity from her hip to her left knee. Further, the patient complains of rib pain; leftworse than right. She has a chronic back pain for which she is on medical marijuana. Patient denies any other symptoms. [facility] Medical History Essential (primary) hypertension Hyperlipidemia Nonobstructive atherosclerosis of coronary artery NSTEMI (non-ST elevated myocardial infarction) (01/06/18) Obesity Psoriatic arthritis Takotsubo syndrome Type 2 diabetes mellitus Home Medications alendronate 70 mg tablet 70 mg PO QWEEK osteoporosis 01/06/18 [History Last Taken Unknown] buspirone 7.5 mg tablet 15 mg PO BID anxiety 01/06/18 [History Last Taken Unknown] fluoxetine 40 mg capsule 40 mg PO BID anxiety 01/06/18 [History Last Taken Unknown] glipizide 5 mg tablet 10 mg PO DAILY antidiabetic 01/06/18 [History Last Taken Unknown] omeprazole 20 mg tablet,delayed release 20 mg PO DAILY GERD 01/06/18 [History Last Taken Unknown] oxybutynin chloride 5 mg tablet 10 mg PO DAILY 01/06/18 [History Last Taken Unknown] simvastatin 40 mg tablet 40 mg PO DAILY Cholesterole 01/06/18 [History Last Taken Unknown] carvedilol 3.125 mg tablet 3.125 mg PO BID #90 tabs 07/10/18 [Rx Last Taken Unknown] ergocalciferol (vitamin D2) 1,250 mcg (50,000 unit) capsule 50,000 unit PO QWEEKsupplement 02/12/19 [History Last Taken Unknown] lisinopril 20 mg tablet 20 mg PO DAILY #30 tabs 02/15/19 [Rx Last Taken Unknown] meloxicam 7.5 mg tablet 7.5 mg PO DAILY #30 tabs 02/15/19 [Rx Last Taken Unknown] fexofenadine 180 mg tablet 180 mg PO DAILY 07/06/22 [History Last Taken Unknown] Allergy/AdvReac Type Severity Reaction Status Date / Time codeine Allergy Itching Verified 08/05/22 17:54 naproxen AdvReac Other Verified 08/05/22 17:54 Family History Mother Cancer skin Father Cancer prostate Surgical History History of back surgery History of carpal tunnel release of both wrists History of hysterectomy History of left heart catheterization (01/07/18) Social History Smoking Status: Former smoker how long ago did patient quit smokin years ago alcohol intake: never substance use type: does not use caffeine: Yes Type: carbonated beverages Number of servings: 1 ROS ROS Narrative Pertinent positives and pertinent negatives as noted in HPI. All other systems were reviewed and are negative Vital Signs Vital Signs Vital Signs: 08/05/22 17:54 08/05/22 18:06 08/05/22 20:12 Temperature 98.8 F Temperature Source Temporal Pulse Rate 80 88 Respiratory Rate 18 18 Respiratory Effort Normal Respiratory Depth Normal Respiratory Pattern Normal Blood Pressure 170/74 H 184/85 H Blood Pressure Mean 106 118 Pulse Ox 96 94 Oxygen Delivery Method Room Air Weight Weight: 88.7 kg Body Mass Index (BMI) 33.5 Physical Exam Narrative Physical exam: General: Well-nourished, well-developed. Head: Normocephalic, atraumatic, no tenderness Eyes: Vision is grossly intact. EOMI ENT, no trauma, moist mucous membranes, no rhinorrhea Neck: Nontender, No thyromegaly. CVS: Regular rate and rhythm. S1-S2 present. No murmur, gallop or rub. Respiratory : clear to auscultation bilaterally, chest wall nontender Abdomen: Soft, nontender, nondistended, normal bowel sounds, no masses : Deferred Back: Nontender, no CVA tenderness. Extremities: Shortened left lower extremity compared to right lower extremity. Skin: Pale, no trauma, abrasions Neuro: Alert, oriented, cranial nerves II through XII grossly intact. Psychiatry: Normal mood. Normal affect. Not depressed. Not anxious. Results Lab / Micro Data Result Diagrams: 08/05/22 20:42 08/05/22 20:42 Radiology Impression Ribs w/Chest X-Ray 08/05/22 18:05 IMPRESSION: Old right rib fractures. Electronically Signed: Keaton Pineda DO at 20:07 EDT , Brain CT 08/05/22 18:20 IMPRESSION: Normal unenhanced CT scan of the brain. Electronically Signed: Keaton Pineda DO at 18:45 EDT , Cervical Spine CT 08/05/22 18:20 IMPRESSION: Degenerative changes changes and discogenic disease as noted of the cervical spine. Electronically Signed: Keaton Pineda DO at 18:54 EDT , Hip/Pelvis X-Ray 08/05/22 18:30 IMPRESSION: Possible nondisplaced intertrochanteric fracture of the left femur. Electronically Signed: Keaton Pineda DO at 20:10 EDT , Assessment & Plan Assessment/Plan (1) Closed intertrochanteric fracture of left hip: (2) Fall from slip, trip, or stumble: (3) Intertrochanteric fracture of left femur: PLAN: Plan Closed intertrochanteric fracture to left hip/fall Hips and pelvis x-ray, radiology impression:Possible nondisplaced intertrochanteric fracture of the left femur. Hip and pelvis x-ray was independently interpreted and I agree with radiology interpretation. Emergent department doctor discussed the case with Dr. Ramirez. Inpatient consult for orthopedic surgery. Morphine IV as needed ordered. Tylenol as needed ordered. Bowel protocol and antiemetics IV ordered. Clear liquid diet in a.m. and n.p.o.2 hours for surgery. Keep n.p.o. IV fluids preoperative surgery.Check vitamin D level. Preoperative EKG unremarkable ACS NSQIP surgical risk calculator with below surgical risk. Hypertension Blood pressure is not within goal Home blood pressure medication continued. As needed hydralazine IV ordered. Trend blood pressure and adjust blood pressure medications. Leukocytosis White count of 16.1. Likely reactive. Trend. Diabetes mellitus Blood glucose on presentation was stable. Hold home glipizide as patient will will be n.p.o. Accu-Chek with correction scale insulin ordered. DVT prophylaxis: SCDs ordered. Charges/Coding Visit Charges Inpatient E&M: 31893 Init Hosp L3 08/05/222151 <Electronically signed by Home Valverde MD> Cosigner Signature (if applicable): CC: ORESTES Boyer; Dr. Home Valverde MD~ Signed [facility] Work Phone: [phone]) 185-486406-24-2023 Discharge summary Author Nico Arce [facility] August 05, 2022 9:02pm Note Date/Time August 05, 2022 6:09 pm [facility] Medical Records Department [address] [place] [id number] Emergency Department Summary 08/05/22 MR#: [id number] Acct: [id number] Name: DONNA MARSH Rep #:[id number] : 1955 66 From: Monica VELÁSQUEZ PCP: ORESTES Cano Status:ADM IN [place] [facility] [id number] HPI <DIDIER Ohara - Last Filed: 08/05/22 20:31> HPI - Fall History of Present Illness Chief Complaint: Fall Narrative Narrative: Patient had a mechanical fall in her driveway due to a chronic foot drop. She landed on her left side and struck her head. No LOC. She was not able to get up due to left hip pain and was brought in by EMS. She complains of left rib cage and left rib pain. No shortness of breath. No headache, visual changes, nausea or vomiting. No blood thinners. Denies neck or back pain. <Dr. Nico Arce MD - Last Filed: 08/05/22 21:02> HPI - Fall History of Present Illness Informant: patient [facility] <DIDIER Ohara - Last Filed: 08/05/22 20:31> [facility] Medical History (Updated 08/05/22 @ 21:[address] Nico Arce MD) Essential (primary) hypertension Hyperlipidemia Nonobstructive atherosclerosis of coronary artery NSTEMI (non-ST elevated myocardial infarction) (01/06/18) Obesity Psoriatic arthritis Takotsubo syndrome Type 2 diabetes mellitus Home Medications alendronate 70 mg tablet 70 mg PO QWEEK osteoporosis 01/06/18 [History Last Taken Unknown] buspirone 7.5 mg tablet 15 mg PO BID anxiety 01/06/18 [History Last Taken Unknown] fluoxetine 40 mg capsule 40 mg PO BID anxiety 01/06/18 [History Last Taken Unknown] glipizide 5 mg tablet 10 mg PO DAILY antidiabetic 01/06/18 [History Last Taken Unknown] omeprazole 20 mg tablet,delayed release 20 mg PO DAILY GERD 01/06/18 [History Last Taken Unknown] oxybutynin chloride 5 mg tablet 10 mg PO DAILY 01/06/18 [History Last Taken Unknown] simvastatin 40 mg tablet 40 mg PO DAILY Cholesterole 01/06/18 [History Last Taken Unknown] carvedilol 3.125 mg tablet 3.125 mg PO BID #90 tabs 07/10/18 [Rx Last Taken Unknown] ergocalciferol (vitamin D2) 1,250 mcg (50,000 unit) capsule 50,000 unit PO QWEEKsupplement 02/12/19 [History Last Taken Unknown] lisinopril 20 mg tablet 20 mg PO DAILY #30 tabs 02/15/19 [Rx Last Taken Unknown] meloxicam 7.5 mg tablet 7.5 mg PO DAILY #30 tabs 02/15/19 [Rx Last Taken Unknown] fexofenadine 180 mg tablet 180 mg PO DAILY 07/06/22 [History Last Taken Unknown] Allergy/AdvReac Type Severity Reaction Status Date / Time codeine Allergy Itching Verified 08/05/22 17:54 naproxen AdvReac Other Verified 08/05/22 17:54 Family History Mother Cancer skin Father Cancer prostate Surgical History History of back surgery History of carpal tunnel release of both wrists History of hysterectomy History of left heart catheterization (01/07/18) Social History Smoking Status: Former smoker how long ago did patient quit smokin years ago alcohol intake: never substance use type: does not use caffeine: Yes Type: carbonated beverages Number of servings: 1 ROS <DIDIER Ohara - Last Filed: 08/05/22 20:31> ROS ED ROS Narrative Constitutional: Negative for fever, chills, malaise. Eyes: Negative for visual change. CVS: Negative for chest pain, syncope. Respiratory: Negative for shortness of breath. GI: Negative for abdominal pain, nausea, vomiting. Neuro: Negative for headache, motor/sensory dysfunction. Skin: Positive for abrasions. Musc: Positive for left hip pain, trauma. EXAM <DIDIER Ohara - Last Filed: 08/05/22 20:31> Physical Exam Narrative Exam Narrative: CONST: Patient sitting in no acute distress. EYES: Normal inspection. PERRLA, EOMI. ENT: Head normocephalic atraumatic, no raccoon eyes or park sign, no hemotympanum, no nasal septal hematoma, no CSF otorrhea or rhinorrhea. NECK: Normal inspection. No midline spinal tenderness, no step off or crepitus. RESP: No respiratory distress, CTAB. Tender over the left lower anterior rib cage, no deformity or crepitus, no bruising. CVS: Regular rate and rhythm, no murmur, no gallop. ABD: Soft and nontender, no guarding or rebound, nondistended. Back: Normal inspection, spine SKIN: Abrasions over left elbow and left knee. EXTREMITIES: Normal appearance of both upper extremities, full ROM, no bony tenderness, 2+ radial pulses. Left leg shortened and externally rotated, pain with logroll. No other bony tenderness present, 2+ DP pulses. NEURO: Oriented x4. PSYCH: Normal affect. Const Vital Signs: 08/05/22 17:54 08/05/22 18:06 08/05/22 20:12 Temperature 98.8 F Temperature Source Temporal Pulse Rate 80 88 Respiratory Rate 18 18 Respiratory Effort Normal Respiratory Depth Normal Respiratory Pattern Normal Blood Pressure 170/74 H 184/85 H Blood Pressure Mean 106 118 Pulse Ox 96 94 Oxygen Delivery Method Room Air <Dr. Nico Arce MD - Last Filed: 08/05/22 21:02> Physical Exam Const Vital Signs: 08/05/22 17:54 08/05/22 18:06 08/05/22 20:12 Temperature 98.8 F Temperature Source Temporal Pulse Rate 80 88 Respiratory Rate 18 18 Respiratory Effort Normal Respiratory Depth Normal Respiratory Pattern Normal Blood Pressure 170/74 H 184/85 H Blood Pressure Mean 106 118 Pulse Ox 96 94 Oxygen Delivery Method Room Air MDM <DIDIER Ohara - Last Filed: 08/05/22 20:31> MDM MDM Narrative Medical decision making narrative: History gathered from: Patient and EMS Patient had a mechanical fall with closed head injury without loss of consciousness. She injured her left rib cage and her left hip. She is awake and alert with GCS 15. No signs of head injury or basilar skull fracture. Neurologically intact. She has no neck or midline spinal tenderness throughout the spine. Chest wall stable with normal heart and lung sounds. She is tender over the left lower ribs with no deformity or crepitus. No abdominal tenderness. Pelvis stable but her left leg is shortened and rotated and she haspain in the hip with any range of motion. Upper and lower extremity distal pulses intact. CT scans of the brain/C-spine are negative. Left rib series x-rays are negative. Left hip x-ray shows suspected nondisplaced intertrochanteric fracture. I spoke with Dr. Montemayor, orthopedics to confirm this is a fracture. Patient was given pain control and will be admitted for surgical fixation. Case discussed with the hospitalist for admission. Consults: Orthopedics, hospitalist Differential: Contusion, hip fracture, pelvic fracture Lab Data Labs: Laboratory Results - last 24 hr 08/05/22 20:42 WBC 16.1 H RBC 4.16 L Hgb 12.3 Hct 39.0 MCV 93.8 MCH 29.6 MCHC 31.5 L RDW Std Deviation 42.2 RDW Coeff of Gerhard 12.1 Plt Count 248 MPV 9.9 Immature Gran % (Auto) 0.600 Neut % (Auto) 89.8 H Lymph % (Auto) 6.0 L Long % (Auto) 3.2 Eos % (Auto) 0.2 Baso % (Auto) 0.2 Absolute Neuts (auto) 14.5 H Absolute Lymphs (auto) 0.97 Nucleated RBC % 0 Radiography Diagnostic Testing: Clinical Impression(s) from Imaging Studies Ribs w/Chest X-Ray 08/05/22 18:05 IMPRESSION: Old right rib fractures. Electronically Signed: Keaton Pineda DO at 20:07 EDT , Brain CT 08/05/22 18:20 IMPRESSION: Normal unenhanced CT scan of the brain. Electronically Signed: Keaton Pineda DO at 18:45 EDT , Cervical Spine CT 08/05/22 18:20 IMPRESSION: Degenerative changes changes and discogenic disease as noted of the cervical spine. Electronically Signed: Keaton Pineda DO at 18:54 EDT , Hip/Pelvis X-Ray 08/05/22 18:30 IMPRESSION: Possible nondisplaced intertrochanteric fracture of the left femur. Electronically Signed: Keaton Pineda DO at 20:10 EDT , ED attending interpretation of chest/rib series shows no evidence of displaced rib fracture or pneumothorax. ED attending interpretation of left hip shows suspected nondisplaced intertrochanteric fracture. <Dr. Nico Arce MD - Last Filed: 08/05/22 21:02> [facility] Lab Data Attestation: I reviewed the patient's lab results. Labs: Laboratory Results - last 24 hr 08/05/22 20:42 WBC 16.1 H RBC 4.16 L Hgb 12.3 Hct 39.0 MCV 93.8 MCH 29.6 MCHC 31.5 L RDW Std Deviation 42.2 RDW Coeff of Gerhard 12.1 Plt Count 248 MPV 9.9 Immature Gran % (Auto) 0.600 Neut % (Auto) 89.8 H Lymph % (Auto) 6.0 L Long % (Auto) 3.2 Eos % (Auto) 0.2 Baso % (Auto) 0.2 Absolute Neuts (auto) 14.5 H Absolute Lymphs (auto) 0.97 Nucleated RBC % 0 Radiography Diagnostic Testing: Clinical Impression(s) from Imaging Studies Ribs w/Chest X-Ray 08/05/22 18:05 IMPRESSION: Old right rib fractures. Electronically Signed: Keaton Pineda DO at 20:07 EDT , Brain CT 08/05/22 18:20 IMPRESSION: Normal unenhanced CT scan of the brain. Electronically Signed: Keaton Pineda DO at 18:45 EDT , Cervical Spine CT 08/05/22 18:20 IMPRESSION: Degenerative changes changes and discogenic disease as noted of the cervical spine. Electronically Signed: Keaton Pineda DO at 18:54 EDT , Hip/Pelvis X-Ray 08/05/22 18:30 IMPRESSION: Possible nondisplaced intertrochanteric fracture of the left femur. Electronically Signed: Keaton Pineda DO at 20:10 EDT Reading Location ID and State: [facility] / [place] Tel [phone], Service support , Rhythm Strip Rhythm Strip: Sinus Rhythm Rate: 90 Ectopy: None EKG Initial EKG: Attestation: I personally reviewed and interpreted this EKG as follows: Interpretation: Sinus Rhythm and No Acute Injury Pattern Management Discussion w/another healthcare provider: Hospitalist and Baler Treatment and Re-Evaluation Narrative: Seen and evaluated independently and in conjunction with physician project construction assistant manager. Agree with notes above unless documented otherwise. Accidental fall onto her left hip not able to move or bear weight since. Also hit her head but no loss consciousness. Exam: Significant pain in the left hip joint with even minor logrolling of the left lower extremity. Difficult to evaluate for shortening since she is holdingit up and flexion. No other areas of tenderness in the lower extremities. Bilateral upper extremities full range of motion no tenderness either. High suspicion for hip fracture. We will start with x-rays and pain control. Three-view x-ray series of the left hip on my interpretation shows a nondisplaced intertrochanteric fracture. Discussed with Dr. Ramirez who is in agreement, radiology eventually read the film and agrees as well. Will admit. Discharge Plan Triage Chief Complaint: Fall Other Complaint: Lower Extremity Injury ED Midlevel Provider: Monica Alvarado ED Provider: Nico Arce Dx/Rx/DC Orders Clinical Impression: Closed intertrochanteric fracture of left hip, Abrasion of elbow, left, Abrasion of knee, left, Closed head injury without loss of consciousness, Fall from slip, trip, or stumble Primary Care Provider: Rudy Boyer Disposition Disposition: Acute Care Hospital [facility] What to do if you have Problems For any increased pain, shortness of breath, bleeding, nausea or vomiting, chestpain, or any unexpected problems, contact your Primary Care Provider. Call [facility] ([phone]) or report to the closest Emergency Room. Call 911 if necessary. 08/05/222030 <Electronically signed by Monica VELÁSQUEZ> Cosigner Signature (if applicable): 08/05/222101 <Electronically signed by Nico Arce MD> CC: CRISTOPHER-Madelyn Boyer ~ Signed [facility] Work Phone: [phone]) 210-854606-24-2023 Consult note Author Dereck Ramirez [facility] August 05, 2022 8:36pm Note Date/Time August 05, 2022 8:34 pm [facility] Medical Records Department [address] [place] [address] Consultation - Orthopedics 08/05/222026 MR#: [id number] Acct: [id number] Name: DONNA MARSH Rep #:[id number] : 1955 66 From: Dereck chandra DO PCP: ORESTES Cano Status:REG ER Location: ED HPI Consult Data Date of Consult: 08/05/22 HPI Narrative HPI Narrative: DONNA MARSH, is a 66 F who presents after a mechanical ground-level fall while she was walking in her foot caught into a crack in the sidewalk causing her to land on her left side. She noted immediate pain in her left hip and inability to bear weight. She also noted pain on her left rib cage. She denies any shortness of breath but does note pain with taking a deep inspiration. She denies any antecedent left hip or groin pain. Patient has history of CAD with remote NSTEMI in 2018, apparent diet- controlled diabetes mellitus, hypertension,hyperlipidemia, CKD. She has a history of osteoporotic vertebral compression fracture with kyphoplasty. She denies any fevers, chills, nausea vomiting, chest pain or shortness of breath. [facility] Medical History (Updated 08/05/22 @ 20:[address] Dereck Ramirez DO) Essential (primary) hypertension Hyperlipidemia Nonobstructive atherosclerosis of coronary artery NSTEMI (non-ST elevated myocardial infarction) (01/06/18) Obesity Psoriatic arthritis Takotsubo syndrome Type 2 diabetes mellitus Home Medications alendronate 70 mg tablet 70 mg PO QWEEK osteoporosis 01/06/18 [History Last Taken Unknown] buspirone 7.5 mg tablet 15 mg PO BID anxiety 01/06/18 [History Last Taken Unknown] fluoxetine 40 mg capsule 40 mg PO BID anxiety 01/06/18 [History Last Taken Unknown] glipizide 5 mg tablet 10 mg PO DAILY antidiabetic 01/06/18 [History Last Taken Unknown] omeprazole 20 mg tablet,delayed release 20 mg PO DAILY GERD 01/06/18 [History Last Taken Unknown] oxybutynin chloride 5 mg tablet 10 mg PO DAILY 01/06/18 [History Last Taken Unknown] simvastatin 40 mg tablet 40 mg PO DAILY Cholesterole 01/06/18 [History Last Taken Unknown] carvedilol 3.125 mg tablet 3.125 mg PO BID #90 tabs 07/10/18 [Rx Last Taken Unknown] ergocalciferol (vitamin D2) 1,250 mcg (50,000 unit) capsule 50,000 unit PO QWEEKsupplement 02/12/19 [History Last Taken Unknown] lisinopril 20 mg tablet 20 mg PO DAILY #30 tabs 02/15/19 [Rx Last Taken Unknown] meloxicam 7.5 mg tablet 7.5 mg PO DAILY #30 tabs 02/15/19 [Rx Last Taken Unknown] fexofenadine 180 mg tablet 180 mg PO DAILY 07/06/22 [History Last Taken Unknown] Allergy/AdvReac Type Severity Reaction Status Date / Time codeine Allergy Itching Verified 08/05/22 17:54 naproxen AdvReac Other Verified 08/05/22 17:54 Family History Mother Cancer skin Father Cancer prostate Surgical History History of back surgery History of carpal tunnel release of both wrists History of hysterectomy History of left heart catheterization (01/07/18) Social History Smoking Status: Former smoker how long ago did patient quit smokin years ago alcohol intake: never substance use type: does not use caffeine: Yes Type: carbonated beverages Number of servings: 1 ROS ROS Narrative 12 point review systems obtained, negative unless otherwise noted in noted HPI. Vital Signs Vital Signs Vital Signs: 08/05/22 17:54 08/05/22 18:06 08/05/22 20:12 Temperature 98.8 F Temperature Source Temporal Pulse Rate 80 88 Respiratory Rate 18 18 Respiratory Effort Normal Respiratory Depth Normal Respiratory Pattern Normal Blood Pressure 170/74 H 184/85 H Blood Pressure Mean 106 118 Pulse Ox 96 94 Oxygen Delivery Method Room Air Weight Weight: 195 lb 8.8 oz Body Mass Index (BMI) 33.5 Physical Exam Narrative General -A&Ox3, NAD, appears stated age. Vital signs stable, afebrile. Respiratory -normal work of breathing, no intercostal retractions. Tenderness along left rib cage without obvious flail segment. CV -pulses regular, brisk capillary refill ?4 limbs. Abdomen-soft, nontender, nondistended. No guarding, rigidity, rebound tenderness. Musculoskeletal/neurologic -full range of motion nontender throughout bilateral upper extremities, right lower extremity with full sensation and strength in alldermatomes and myotomes. No midline cervical tenderness. Left lower extremity-no obvious deformity. Pain with logroll of the left lowerextremity. Nontender throughout the left knee femoral shaft, tibial shaft and left foot/ankle. Brisk capillary refill. Sensation intact light touch L3-S1 dermatomes. DF, PF, EHL intact. DP, PT 2+. Pelvis is stable, nontender. Skinis intact without lacerations, abrasions. No ecchymosis noted. Radiology Impression Ribs w/Chest X-Ray 08/05/22 18:05 IMPRESSION: Old right rib fractures. Electronically Signed: Keaton Pineda DO at 20:07 EDT , Brain CT 08/05/22 18:20 IMPRESSION: Normal unenhanced CT scan of the brain. Electronically Signed: Keaton Pineda DO at 18:45 EDT , Cervical Spine CT 08/05/22 18:20 IMPRESSION: Degenerative changes changes and discogenic disease as noted of the cervical spine. Electronically Signed: Keaton Pineda DO at 18:54 EDT , Hip/Pelvis X-Ray 08/05/22 18:30 IMPRESSION: Possible nondisplaced intertrochanteric fracture of the left femur. Electronically Signed: Keaton Pineda DO at 20:10 EDT Reading Location ID and State: [facility] / [place] Tel [phone], Service support , Assessment & Plan Assessment/Plan (1) Intertrochanteric fracture of left femur: PLAN: Patient sustained a minimally displaed left intertrochanteric proximal femur fracture. -Closed, neurovascularly intact -Recommending surgical intervention in the form of left femur cephalomedullary nailing -I discussed the procedure-its risks, benefits and alternative. Risks include but are not limited to bleeding, infection, loss of life or limb, risk of anesthesia, persistent pain or disability, need for additional surgery, nonunion, malunion, failure of orthopedic hardware, neurovascular injury, DVT orPE. Patient expressed understanding these risks and wished proceed with surgery. -Maintenance IV fluids, clear liquid diet after midnight n.p.o. at 2 hours priorto surgery -Type and screen -2 g Ancef on-call to the OR -Bedrest, heel protectors -Plan to proceed with surgery tomorrow morning if deemed optimized by hospitalist. Preoperative labs, EKG Thank you for this consultation. 08/05/222035 <Electronically signed by Dereck Ramirez DO> Cosigner Signature (if applicable): CC: ORESTES Boyer~ Signed [facility] Work Phone: [phone] 111-988706-24-[address] Arce [facility] August 05, 2022 9:02pm Note Date/Time August 05, 2022 6:09 pm [facility] Medical Records Department [address] [place] [address] Emergency Department Summary 08/05/22 MR#: [id number] Acct: [id number] Name: DONNA MARSH Rep #:[id number] : 1955 66 From: Monica VELÁSQUEZ PCP: ORESTES Cano Status:ADM IN Location: [place] [id number] HPI <DIDIER Ohara - Last Filed: 08/05/22 20:31> HPI - Fall History of Present Illness Chief Complaint: Fall Narrative Narrative: Patient had a mechanical fall in her driveway due to a chronic foot drop. She landed on her left side and struck her head. No LOC. She was not able to get up due to left hip pain and was brought in by EMS. She complains of left rib cage and left rib pain. No shortness of breath. No headache, visual changes, nausea or vomiting. No blood thinners. Denies neck or back pain. <Dr. Nico Arce MD - Last Filed: 08/05/22 21:02> HPI - Fall History of Present Illness Informant: patient [facility] <DIDIER Ohara - Last Filed: 08/05/22 20:31> [facility] Medical History (Updated 08/05/22 @ 21:[address] Nico Arce MD) Essential (primary) hypertension Hyperlipidemia Nonobstructive atherosclerosis of coronary artery NSTEMI (non-ST elevated myocardial infarction) (01/06/18) Obesity Psoriatic arthritis Takotsubo syndrome Type 2 diabetes mellitus Home Medications alendronate 70 mg tablet 70 mg PO QWEEK osteoporosis 01/06/18 [History Last Taken Unknown] buspirone 7.5 mg tablet 15 mg PO BID anxiety 01/06/18 [History Last Taken Unknown] fluoxetine 40 mg capsule 40 mg PO BID anxiety 01/06/18 [History Last Taken Unknown] glipizide 5 mg tablet 10 mg PO DAILY antidiabetic 01/06/18 [History Last Taken Unknown] omeprazole 20 mg tablet,delayed release 20 mg PO DAILY GERD 01/06/18 [History Last Taken Unknown] oxybutynin chloride 5 mg tablet 10 mg PO DAILY 01/06/18 [History Last Taken Unknown] simvastatin 40 mg tablet 40 mg PO DAILY Cholesterole 01/06/18 [History Last Taken Unknown] carvedilol 3.125 mg tablet 3.125 mg PO BID #90 tabs 07/10/18 [Rx Last Taken Unknown] ergocalciferol (vitamin D2) 1,250 mcg (50,000 unit) capsule 50,000 unit PO QWEEKsupplement 02/12/19 [History Last Taken Unknown] lisinopril 20 mg tablet 20 mg PO DAILY #30 tabs 01/04/20 [Rx Last Taken Unknown] meloxicam 7.5 mg tablet 7.5 mg PO DAILY #30 tabs 02/15/19 [Rx Last Taken Unknown] fexofenadine 180 mg tablet 180 mg PO DAILY 07/06/22 [History Last Taken Unknown] Allergy/AdvReac Type Severity Reaction Status Date / Time codeine Allergy Itching Verified 08/05/22 17:54 naproxen AdvReac Other Verified 08/05/22 17:54 Family History Mother Cancer skin Father Cancer prostate Surgical History History of back surgery History of carpal tunnel release of both wrists History of hysterectomy History of left heart catheterization (01/07/18) Social History Smoking Status: Former smoker how long ago did patient quit smokin years ago alcohol intake: never substance use type: does not use caffeine: Yes Type: carbonated beverages Number of servings: 1 ROS <DIDIER Ohara - Last Filed: 08/05/22 20:31> ROS ED ROS Narrative Constitutional: Negative for fever, chills, malaise. Eyes: Negative for visual change. CVS: Negative for chest pain, syncope. Respiratory: Negative for shortness of breath. GI: Negative for abdominal pain, nausea, vomiting. Neuro: Negative for headache, motor/sensory dysfunction. Skin: Positive for abrasions. Musc: Positive for left hip pain, trauma. EXAM <DIDIER Ohara - Last Filed: 08/05/22 20:31> Physical Exam Narrative Exam Narrative: CONST: Patient sitting in no acute distress. EYES: Normal inspection. PERRLA, EOMI. ENT: Head normocephalic atraumatic, no raccoon eyes or park sign, no hemotympanum, no nasal septal hematoma, no CSF otorrhea or rhinorrhea. NECK: Normal inspection. No midline spinal tenderness, no step off or crepitus. RESP: No respiratory distress, CTAB. Tender over the left lower anterior rib cage, no deformity or crepitus, no bruising. CVS: Regular rate and rhythm, no murmur, no gallop. ABD: Soft and nontender, no guarding or rebound, nondistended. Back: Normal inspection, spine SKIN: Abrasions over left elbow and left knee. EXTREMITIES: Normal appearance of both upper extremities, full ROM, no bony tenderness, 2+ radial pulses. Left leg shortened and externally rotated, pain with logroll. No other bony tenderness present, 2+ DP pulses. NEURO: Oriented x4. PSYCH: Normal affect. Const Vital Signs: 08/05/22 17:54 08/05/22 18:06 08/05/22 20:12 Temperature 98.8 F Temperature Source Temporal Pulse Rate 80 88 Respiratory Rate 18 18 Respiratory Effort Normal Respiratory Depth Normal Respiratory Pattern Normal Blood Pressure 170/74 H 184/85 H Blood Pressure Mean 106 118 Pulse Ox 96 94 Oxygen Delivery Method Room Air <Dr. Nico Arce MD - Last Filed: 08/05/22 21:02> Physical Exam Const Vital Signs: 08/05/22 17:54 08/05/22 18:06 08/05/22 20:12 Temperature 98.8 F Temperature Source Temporal Pulse Rate 80 88 Respiratory Rate 18 18 Respiratory Effort Normal Respiratory Depth Normal Respiratory Pattern Normal Blood Pressure 170/74 H 184/85 H Blood Pressure Mean 106 118 Pulse Ox 96 94 Oxygen Delivery Method Room Air MDM <DIDIER Ohara - Last Filed: 08/05/22 20:31> [facility] Narrative Medical decision making narrative: History gathered from: Patient and EMS Patient had a mechanical fall with closed head injury without loss of consciousness. She injured her left rib cage and her left hip. She is awake and alert with GCS 15. No signs of head injury or basilar skull fracture. Neurologically intact. She has no neck or midline spinal tenderness throughout the spine. Chest wall stable with normal heart and lung sounds. She is tender over the left lower ribs with no deformity or crepitus. No abdominal tenderness. Pelvis stable but her left leg is shortened and rotated and she haspain in the hip with any range of motion. Upper and lower extremity distal pulses intact. CT scans of the brain/C-spine are negative. Left rib series x-rays are negative. Left hip x-ray shows suspected nondisplaced intertrochanteric fracture. I spoke with Dr. Montemayor, orthopedics to confirm this is a fracture. Patient was given pain control and will be admitted for surgical fixation. Case discussed with the hospitalist for admission. Consults: Orthopedics, hospitalist Differential: Contusion, hip fracture, pelvic fracture Lab Data Labs: Laboratory Results - last 24 hr 08/05/22 20:42 WBC 16.1 H RBC 4.16 L Hgb 12.3 Hct 39.0 MCV 93.8 MCH 29.6 MCHC 31.5 L RDW Std Deviation 42.2 RDW Coeff of Gerhard 12.1 Plt Count 248 MPV 9.9 Immature Gran % (Auto) 0.600 Neut % (Auto) 89.8 H Lymph % (Auto) 6.0 L Long % (Auto) 3.2 Eos % (Auto) 0.2 Baso % (Auto) 0.2 Absolute Neuts (auto) 14.5 H Absolute Lymphs (auto) 0.97 Nucleated RBC % 0 Radiography Diagnostic Testing: Clinical Impression(s) from Imaging Studies Ribs w/Chest X-Ray 08/05/22 18:05 IMPRESSION: Old right rib fractures. Electronically Signed: Keaton Pineda DO at 20:07 EDT , Brain CT 08/05/22 18:20 IMPRESSION: Normal unenhanced CT scan of the brain. Electronically Signed: Keaton Pineda DO at 18:45 EDT , Cervical Spine CT 08/05/22 18:20 IMPRESSION: Degenerative changes changes and discogenic disease as noted of the cervical spine. Electronically Signed: Keaton Pineda DO at 18:54 EDT , Hip/Pelvis X-Ray 08/05/22 18:30 IMPRESSION: Possible nondisplaced intertrochanteric fracture of the left femur. Electronically Signed: Keaton Pineda DO at 20:10 EDT , ED attending interpretation of chest/rib series shows no evidence of displaced rib fracture or pneumothorax. ED attending interpretation of left hip shows suspected nondisplaced intertrochanteric fracture. <Dr. Nico Arce MD - Last Filed: 08/05/22 21:02> [facility] Lab Data Attestation: I reviewed the patient's lab results. Labs: Laboratory Results - last 24 hr 08/05/22 20:42 WBC 16.1 H RBC 4.16 L Hgb 12.3 Hct 39.0 MCV 93.8 MCH 29.6 MCHC 31.5 L RDW Std Deviation 42.2 RDW Coeff of Gerhard 12.1 Plt Count 248 MPV 9.9 Immature Gran % (Auto) 0.600 Neut % (Auto) 89.8 H Lymph % (Auto) 6.0 L Long % (Auto) 3.2 Eos % (Auto) 0.2 Baso % (Auto) 0.2 Absolute Neuts (auto) 14.5 H Absolute Lymphs (auto) 0.97 Nucleated RBC % 0 Radiography Diagnostic Testing: Clinical Impression(s) from Imaging Studies Ribs w/Chest X-Ray 08/05/22 18:05 IMPRESSION: Old right rib fractures. Electronically Signed: Keaton Pineda DO at 20:07 EDT , Brain CT 08/05/22 18:20 IMPRESSION: Normal unenhanced CT scan of the brain. Electronically Signed: Keaton Pineda DO at 18:45 EDT , Cervical Spine CT 08/05/22 18:20 IMPRESSION: Degenerative changes changes and discogenic disease as noted of the cervical spine. Electronically Signed: Keaton Pineda DO at 18:54 EDT , Hip/Pelvis X-Ray 08/05/22 18:30 IMPRESSION: Possible nondisplaced intertrochanteric fracture of the left femur. Electronically Signed: Kaeton DO Edwin at 20:10 EDT , Rhythm Strip Rhythm Strip: Sinus Rhythm Rate: 90 Ectopy: None EKG Initial EKG: Attestation: I personally reviewed and interpreted this EKG as follows: Interpretation: Sinus Rhythm and No Acute Injury Pattern Management Discussion w/another healthcare provider: Hospitalist and Baler Treatment and Re-Evaluation Narrative: Seen and evaluated independently and in conjunction with physician project construction assistant manager. Agree with notes above unless documented otherwise. Accidental fall onto her left hip not able to move or bear weight since. Also hit her head but no loss consciousness. Exam: Significant pain in the left hip joint with even minor logrolling of the left lower extremity. Difficult to evaluate for shortening since she is holdingit up and flexion. No other areas of tenderness in the lower extremities. Bilateral upper extremities full range of motion no tenderness either. High suspicion for hip fracture. We will start with x-rays and pain control. Three-view x-ray series of the left hip on my interpretation shows a nondisplaced intertrochanteric fracture. Discussed with Dr. Ramirez who is in agreement, radiology eventually read the film and agrees as well. Will admit. Discharge Plan Triage Chief Complaint: Fall Other Complaint: Lower Extremity Injury ED Midlevel Provider: Monica Alvarado ED Provider: Nico Arce Dx/Rx/DC Orders Clinical Impression: Closed intertrochanteric fracture of left hip, Abrasion of elbow, left, Abrasion of knee, left, Closed head injury without loss of consciousness, Fall from slip, trip, or stumble Primary Care Provider: Rudy Boyer Disposition Disposition: Acute Care Hospital [facility] What to do if you have Problems For any increased pain, shortness of breath, bleeding, nausea or vomiting, chestpain, or any unexpected problems, contact your Primary Care Provider. Call [facility] ([phone]) or report to the closest Emergency Room. Call 911 if necessary. 08/05/222030 <Electronically signed by Monica VELÁSQUEZ> Cosigner Signature (if applicable): 08/05/222101 <Electronically signed by Nico Arce MD> CC: ORESTES Boyer ~ Signed [facility] Work Phone: [phone] 809-152206-15-2009 History of Past illness Narrative* Problem Noted Date Diagnosed Date Resolved Date Routine general medical exam ination at a health care facility 07/27/2008 08/03/2012 Overview: 08/28/06200707/27/08 Routine gynecological examination 07/27/2008 08/03/2012 Overview: declines Eating disorder, unspecified 06/25/2006 03/07/2018 documented as of this encounter (statuses as of 08/21/2022) [facility] History of Past illness Narrative* Problem Noted Date Diagnosed Date Resolved Date Routine general medical exam ination at a health care facility 07/27/2008 08/03/2012 Overview: 08/28/06200707/27/08 Routine gynecological examination 07/27/2008 08/03/2012 Overview: declines Eating disorder, unspecified 06/25/2006 03/07/2018 documented as of this encounter (statuses as of 09/19/2022) [facility] History of Past illness Narrative* Problem Noted Date Diagnosed Date Resolved Date Routine general medical exam ination at a health care facility 07/27/2008 08/03/2012 Overview: 08/28/06200707/27/08 Routine gynecological examination 07/27/2008 08/03/2012 Overview: declines Eating disorder, unspecified 06/25/2006 03/07/2018 documented as of this encounter (statuses as of 09/28/2022) [facility] History of Past illness Narrative* Problem Noted Date Diagnosed Date Resolved Date Routine general medical exam ination at a health care facility 07/27/2008 08/03/2012 Overview: 08/28/06200707/27/08 Routine gynecological examination 07/27/2008 08/03/2012 Overview: declines Eating disorder, unspecified 06/25/2006 03/07/2018 documented as of this encounter (statuses as of 10/08/2022) [facility] History of Past illness Narrative* Problem Noted Date Diagnosed Date Resolved Date Routine general medical exam ination at a health care facility 07/27/2008 08/03/2012 Overview: 08/28/06200707/27/08 Routine gynecological examination 07/27/2008 08/03/2012 Overview: declines Eating disorder, unspecified 06/25/2006 03/07/2018 documented as of this encounter (statuses as of 10/19/2022) [place] [id number] History of Past illness Narrative* Problem Noted Date Diagnosed Date Resolved Date Routine general medical exam ination at a health care facility 07/27/2008 08/03/2012 Overview: 08/28/06200707/27/08 Routine gynecological examination 07/27/2008 08/03/2012 Overview: declines Eating disorder, unspecified 06/25/2006 03/07/2018 documented as of this encounter (statuses as of 10/20/2022) [facility] History of Past illness Narrative* Problem Noted Date Diagnosed Date Resolved Date Routine general medical exam ination at a health care facility 07/27/2008 08/03/2012 Overview: 08/28/06200707/27/08 Routine gynecological examination 07/27/2008 08/03/2012 Overview: declines Eating disorder, unspecified 06/25/2006 03/07/2018 documented as of this encounter (statuses as of 11/06/2022) [facility] History of Past illness Narrative* Problem Noted Date Diagnosed Date Resolved Date Routine general medical exam ination at a health care facility 07/27/2008 08/03/2012 Overview: 08/28/06200707/27/08 Routine gynecological examination 07/27/2008 08/03/2012 Overview: declines Eating disorder, unspecified 06/25/2006 03/07/2018 documented as of this encounter (statuses as of 11/07/2022) [facility] History of Past illness Narrative* Problem Noted Date Diagnosed Date Resolved Date Routine general medical exam ination at a health care facility 07/27/2008 08/03/2012 Overview: 08/28/06200707/27/08 Routine gynecological examination 07/27/2008 08/03/2012 Overview: declines Eating disorder, unspecified 06/25/2006 03/07/2018 documented as of this encounter (statuses as of 05/22/2023) [facility] August 05, 2022 8:36pm Note Date/Time August 05, 2022 8:34 pm [facility] Medical Records Department [address] [place] [address] Consultation - Orthopedics 08/05/222026 MR#: [id number] Acct: [id number] Name: DONNA MARSH Rep #:[id number] : 1955 66 From: Dereck chandra DO PCP: ORESTES Cano Status:REG ER Location: ED HPI Consult Data Date of Consult: 08/05/22 HPI Narrative HPI Narrative: DONNA MARSH, is a 66 F who presents after a mechanical ground-level fall while she was walking in her foot caught into a crack in the sidewalk causing her to land on her left side. She noted immediate pain in her left hip and inability to bear weight. She also noted pain on her left rib cage. She denies any shortness of breath but does note pain with taking a deep inspiration. She denies any antecedent left hip or groin pain. Patient has history of CAD with remote NSTEMI in 2018, apparent diet- controlled diabetes mellitus, hypertension,hyperlipidemia, CKD. She has a history of osteoporotic vertebral compression fracture with kyphoplasty. She denies any fevers, chills, nausea vomiting, chest pain or shortness of breath. [facility] Medical History (Updated 08/05/22 @ 20:[address] Dereck Ramirez, ) Essential (primary) hypertension Hyperlipidemia Nonobstructive atherosclerosis of coronary artery NSTEMI (non-ST elevated myocardial infarction) (01/06/18) Obesity Psoriatic arthritis Takotsubo syndrome Type 2 diabetes mellitus Home Medications alendronate 70 mg tablet 70 mg PO QWEEK osteoporosis 01/06/18 [History Last Taken Unknown] buspirone 7.5 mg tablet 15 mg PO BID anxiety 01/06/18 [History Last Taken Unknown] fluoxetine 40 mg capsule 40 mg PO BID anxiety 01/06/18 [History Last Taken Unknown] glipizide 5 mg tablet 10 mg PO DAILY antidiabetic 01/06/18 [History Last Taken Unknown] omeprazole 20 mg tablet,delayed release 20 mg PO DAILY GERD 01/06/18 [History Last Taken Unknown] oxybutynin chloride 5 mg tablet 10 mg PO DAILY 01/06/18 [History Last Taken Unknown] simvastatin 40 mg tablet 40 mg PO DAILY Cholesterole 01/06/18 [History Last Taken Unknown] carvedilol 3.125 mg tablet 3.125 mg PO BID #90 tabs 07/10/18 [Rx Last Taken Unknown] ergocalciferol (vitamin D2) 1,250 mcg (50,000 unit) capsule 50,000 unit PO QWEEKsupplement 02/12/19 [History Last Taken Unknown] lisinopril 20 mg tablet 20 mg PO DAILY #30 tabs 02/15/19 [Rx Last Taken Unknown] meloxicam 7.5 mg tablet 7.5 mg PO DAILY #30 tabs 02/15/19 [Rx Last Taken Unknown] fexofenadine 180 mg tablet 180 mg PO DAILY 07/06/22 [History Last Taken Unknown] Allergy/AdvReac Type Severity Reaction Status Date / Time codeine Allergy Itching Verified 08/05/22 17:54 naproxen AdvReac Other Verified 08/05/22 17:54 Family History Mother Cancer skin Father Cancer prostate Surgical History History of back surgery History of carpal tunnel release of both wrists History of hysterectomy History of left heart catheterization (01/07/18) Social History Smoking Status: Former smoker how long ago did patient quit smokin years ago alcohol intake: never substance use type: does not use caffeine: Yes Type: carbonated beverages Number of servings: 1 ROS ROS Narrative 12 point review systems obtained, negative unless otherwise noted in noted HPI. Vital Signs Vital Signs Vital Signs: 08/05/22 17:54 08/05/22 18:06 08/05/22 20:12 Temperature 98.8 F Temperature Source Temporal Pulse Rate 80 88 Respiratory Rate 18 18 Respiratory Effort Normal Respiratory Depth Normal Respiratory Pattern Normal Blood Pressure 170/74 H 184/85 H Blood Pressure Mean 106 118 Pulse Ox 96 94 Oxygen Delivery Method Room Air Weight Weight: 195 lb 8.8 oz Body Mass Index (BMI) 33.5 Physical Exam Narrative General -A&Ox3, NAD, appears stated age. Vital signs stable, afebrile. Respiratory -normal work of breathing, no intercostal retractions. Tenderness along left rib cage without obvious flail segment. CV -pulses regular, brisk capillary refill ?4 limbs. Abdomen-soft, nontender, nondistended. No guarding, rigidity, rebound tenderness. Musculoskeletal/neurologic -full range of motion nontender throughout bilateral upper extremities, right lower extremity with full sensation and strength in alldermatomes and myotomes. No midline cervical tenderness. Left lower extremity-no obvious deformity. Pain with logroll of the left lowerextremity. Nontender throughout the left knee femoral shaft, tibial shaft and left foot/ankle. Brisk capillary refill. Sensation intact light touch L3-S1 dermatomes. DF, PF, EHL intact. DP, PT 2+. Pelvis is stable, nontender. Skinis intact without lacerations, abrasions. No ecchymosis noted. Radiology Impression Ribs w/Chest X-Ray 08/05/22 18:05 IMPRESSION: Old right rib fractures. Electronically Signed: Keaton Pineda DO at 20:07 EDT Reading Location ID and State: [facility] / [place] Tel [phone], Service support , Brain CT 08/05/22 18:20 IMPRESSION: Normal unenhanced CT scan of the brain. Electronically Signed: Keaton Pineda at 18:45 EDT , Cervical Spine CT 08/05/22 18:20 IMPRESSION: Degenerative changes changes and discogenic disease as noted of the cervical spine. Electronically Signed: Keaton Pineda at 18:54 EDT , Hip/Pelvis X-Ray 08/05/22 18:30 IMPRESSION: Possible nondisplaced intertrochanteric fracture of the left femur. Electronically Signed: Keaton Pineda DO at 20:10 EDT , Assessment & Plan Assessment/Plan (1) Intertrochanteric fracture of left femur: PLAN: Patient sustained a minimally displaed left intertrochanteric proximal femur fracture. -Closed, neurovascularly intact -Recommending surgical intervention in the form of left femur cephalomedullary nailing -I discussed the procedure-its risks, benefits and alternative. Risks include but are not limited to bleeding, infection, loss of life or limb, risk of anesthesia, persistent pain or disability, need for additional surgery, nonunion, malunion, failure of orthopedic hardware, neurovascular injury, DVT orPE. Patient expressed understanding these risks and wished proceed with surgery. -Maintenance IV fluids, clear liquid diet after midnight n.p.o. at 2 hours priorto surgery -Type and screen -2 g Ancef on-call to the OR -Bedrest, heel protectors -Plan to proceed with surgery tomorrow morning if deemed optimized by hospitalist. Preoperative labs, EKG Thank you for this consultation. 08/05/222035 <Electronically signed by Dereck Ramirez DO> Cosigner Signature (if applicable): CC: WALLPAPER PRINTER HELPERJarad Boyer~ Signed [facility] Work Phone: Evaluation noteNo assessment information available [facility] Work Phone: Evaluation note* Diagnosis Onset Date Resolution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 arthritis Nonobstructive atherosclerosis of coronary artery Obesity Type 2 diabetes mellitus Takotsubo syndrome Hyperlipidemia Essential (primary) hypertension NSTEMI (non-ST elevated myocardial infarction) (01/06/18) Home Medications ?Medication ?Instructions ?Recorded ?Last Taken ?Type apixaban 2.5 mg tablet (Eliquis) 2.5 mg PO BID blood t hinner 02/14/24 Unknown History ergocalciferol (vitamin D2) 1,250 1,250 mcg PO SA 11/0605/10/24 History mcg (50,000 unit) capsule (Vitamin D2) fexofenadine 180 mg tablet 180 mg PO DAILY 04/20/24 Un known History glipizide 10 mg tablet 10 mg PO DAILY 04/20/24 Unkn own History atorvastatin 20 mg tablet 20 mg PO QHS #0 tabs 5 05/12/24 Rx carvedilol 3.125 mg tablet 3.125 mg PO BIDCM #0 tabs 0 04/24/24 05/13/24 Rx fluoxetine 40 mg capsule 40 mg PO BID #0 caps 5 Unknown Rx gabapentin 100 mg capsule 100 mg PO TID #0 caps Unknown Rx pantoprazole 40 mg tablet,delayed 40 mg PO BID #0 tabs 04/24/24 Unknown Rx release tolterodine 4 mg capsule,extended 4 mg PO DAILY #0 cap s 04/24/24 Unknown Rx release 24 hr acetaminophen 325 mg tablet 650 mg PO Q4H PRN Fever, p ain 05/13/24 05/12/24 History 1-11/21 buspirone 15 mg tablet 15 mg PO BID 05/13/24 Unknow n History donepezil 10 mg tablet 10 mg PO DAILY 05/13/24 Unkn own History mirabegron 50 mg tablet,extended 50 mg PO DAILY Unknown History release 24 hr Allergy/AdvReac Type Severity Reaction Status Date / Time morphine Allergy Mild confusion Verified 05/13/24 15:44 codeine Allergy Itching Verified 05/13/24 15:44 fentanyl AdvReac confusion Verified 05/13/24 15:44 naproxen AdvReac Other Verified 05/13/24 15:44 Family History Mother Cancer skin Father Cancer prostate Surgical History History of back surgery History of carpal tunnel release of both wrists History of hysterectomy History of left heart catheterization (01/07/18) Social History household members: spouse Smoking Status: Former smoker how long ago did patient quit smokin years ago alcohol intake: never substance use type: does not use caffeine: Yes Type: carbonated beverages Number of servings: 1 ROS ROS Narrative Admission Review of Systems: CONSTITUTIONAL: No weight loss, fever, chills, + weakness or fatigue. HEENT: Eyes: No visual loss, blurred vision, double vision or yellow sclerae. Ears, Nose, Throat: No hearing loss, sneezing, congestion, runny nose or sore throat. SKIN: No rash or itching, lesions, wounds. CARDIOVASCULAR: No chest pain, chest pressure or chest discomfort, palpitations,edema, orthopnea, syncopal events. RESPIRATORY: No shortness of breath, cough or sputum, wheezing, hemoptysis. GASTROINTESTINAL: + Complaining currently of some abdominal generalized discomfort, nausea, anorexia. No vomiting, diarrhea, abdominal pain, melena, BRBPR. GENITOURINARY: No dysuria, frequency, urgency or retention. NEUROLOGICAL: + Chronic underlying dementia, unclear specific extent, frequent falls. No headache, dizziness, syncope, paralysis, ataxia, numbness or tinglingin the extremities, focal weakness, change in bowel or bladder control, seizure. MUSCULOSKELETAL: + muscle, back pain, joint pain or stiffness. HEMATOLOGIC: No anemia. + Easy bleeding/bruising. LYMPHATICS: No enlarged nodes. No history of splenectomy. PSYCHIATRIC: + History of anxiety and depression/bipolar disorder. ENDOCRINOLOGIC: No reports of sweating, cold or heat intolerance. No polyuria orpolydipsia. ALLERGIES: No history of asthma, hives, eczema or rhinitis. Vital Signs Vital Signs Vital Signs: 05/13/24 15:45 05/13/24 15:50 05/13/24 18:04 Temperature 97.5 F L Temperature Source Oral Pulse Rate 100 115 H Respiratory Rate 25 H 20 H Respiratory Effort Normal Respiratory Depth Normal Respiratory Pattern Normal Blood Pressure 209/95 H 224/101 H Blood Pressure Mean 133 142 Pulse Ox 96 100 Oxygen Delivery Method Room Air Room Air 05/13/24 20:00 Temperature Temperature Source Pulse Rate 134 H Respiratory Rate Respiratory Effort Respiratory Depth Respiratory Pattern Blood Pressure 215/172 H Blood Pressure Mean 186 Pulse Ox 96 Oxygen Delivery Method Weight Weight: 154 lb 1.65 oz Body Mass Index (BMI) 25.6 Physical Exam Narrative Physical Examination: General: Awake, alert, oriented to self, place and some recent events but is notthe best historian with underlying dementia, remains cooperative, laying in the ED bed, reporting pain 8 out of 10 in severity. Skin: Normal color, normal turgor, no icterus, no cyanosis except occasional stage ecchymoses, abrasions, recent fall with forearm small laceration. HEENT: AT/NC, EOMI, PERRLA, moderately dry MM, no carotid bruits or JVD noted. Lungs: Mildly diminished, greater bases, mildly increased respiratory rate but no distress, no rales, ronchi or wheezing. Heart: Regular rate and rhythm; no gallop, rub audible. Abdomen: Soft, mild generalized discomfort with no rebound or guarding, nondistended, mildly hyperactive BS, no appreciated HSM. Extremities: No cyanosis, clubbing, or edema. Neurological: Patient awake, alert, oriented as noted, cognitive function decreased baseline with underlying dementia, suspect likely near baseline intactcurrently; pupils equally reactive to light and accommodation, cranial nerves grossly normal, moving all 4 extremities, no focal deficits, strength severely globally decreased secondary to acute presentation with fall compounded by underlying chronic, but disease Psychiatric: Affect appears uncomfortable, fatigued, anxious, no acute evidence of depressive feelings but does have underlying history. Results Lab / Micro Data 05/13/24 17:55 05/13/24 17:55 Labs: Laboratory Results - last 24 hr 05/13/24 17:55: WBC 17.0 H, RBC 4.78, Hgb 13.9, Hct 41.4, MCV 86.6, MCH 29.1, MCHC 33.6, RDW Std Deviation 41.1, RDW Coeff of Gerhard 13.2, Plt Count 296, MPV 9.4, Immature Gran % (Auto) 0.800, Neut % (Auto) 87.9 H, Lymph % (Auto) 5.0 L, Long % (Auto) 6.1, Eos % (Auto) 0.1, Baso % (Auto) 0.1, Absolute Neuts (auto) 15.0 H, Absolute Lymphs (auto) 0.85, Nucleated RBC % 0, Sodium 137, Potassium 3.8, Chloride 103, Carbon Dioxide 13.8 L, Anion Gap 21 H, BUN 17, Creatinine 1.13, Estim Creat Clear Calc 45.46 L, Est GFR (MDRD) Non-Af 52 L, BUN/CreatinineRatio 14.7, Glucose 177 H, Calcium 9.6 05/13/24 18:30: Urine Color Yellow, Urine Clarity Clear, Urine pH 6.0, Ur Specific [place] 1.010, Urine Protein 100 H, Urine Glucose (UA) 50 H, Urine Ketones 15 H, Urine Occult Blood 10 H, Urine Nitrite Negative, Urine Bilirubin Negative, Urine Urobilinogen Normal, Ur Leukocyte Esterase Negative, Urine RBC 0SEEN, Urine WBC 0-5 SEEN, Ur Squamous Epith Cells 0 SEEN, Urine Bacteria 0 SEEN,Urine Mucus 0 SEEN Imaging Radiology Impression Brain CT 05/13/24 16:45 IMPRESSION: 1. No acute intracranial finding. 2. Stable findings of chronic microvascular ischemic changes and age-related changes. Reading Location: [facility] Lumbar Spine CT 05/13/24 16:45 IMPRESSION: No obvious acute fracture. Severe multilevel degenerative changes, unchanged. Reading Location: [facility] Assessment & Plan Assessment/Plan (1) Intractable low back pain: (2) Fall: PLAN: Plan The patient is a 68 y/o F w/ PMHx: HTN, HLD, Anxiety and Depression/Bipolar disorder, GERD, Former tobacco use, BURKE, Chronic migraines, PAF, Psoriatic arthritis, Dementia unclear type as well as unclear extent with unclear behavioral disturbance history, Nonobstructive CAD w/ Takotsubo syndrome with reduced EF of 20% 09/2023, Diabetes mellitus type II who presents to the [facility] ED on 05/13/24 with history of recently again being discharged from skilled facility at home with chronic instability and falls unfortunately her bathroom attempted to bend over with mechanical fall with no trauma specifically or loss of consciousness aside from a skin tear to the right forearm but since then persistent lumbar back pain with spasms but no specific radicular pains or shooting pains prompting family to bring her in for treatment. #1. Mechanical fall with Acute on Chronic Intractable Back Pain: Will admit to PCU given BP in the ED elevated likely with pain and also significant nausea following recent narcotics in case of regimen needs per discussion with supervising nurse, will maintain on fall precautions, frequent positioning, initiate IV judicious short course toradol, lidocaine patches, tizanidine x 1 scheduled dose now and as needed follow, increase her gabapentin to 200 mg p.o. 3 times daily and may further adjust as needed, hold off on further narcotic therapies she has significant issues with that she notes, anti-emetics, bowel regimen. Will consult PT and OT for evaluation as well as Case management for discharge planning. #2. Leukocytosis, unclear etiology: Urinalysis not marked appearing, CBC with notable WBC elevation with left shift, possibly could be component of dehydration, will very judiciously hydrate, repeat CBC in a.m., procalcitonin requested. #3. Chronic Kidney Disease Stage II per GFR trend however has vacillated: Admission BUN/Cr 17/1.13, GFR 52, baseline renal function primarily 0.7-0.9, repeat BMP in AM. #4. Known right renal artery obstruction: Continued on Eliquis, statin, hypertensive regimen with adjustments as needed. #5. Hypertension: Will continue home regimen including Coreg with adjustments as needed, PRN IV hydralazine. #6. Hyperlipidemia: Continue home statin therapy. #7. Anxiety and depression/bipolar disorder: Continue home BuSpar and fluoxetine home regimen. #8. PAF: Continue home Eliquis and Coreg regimen. #9. Dementia, unclear type with unclear behavioral disturbance history: Complicates presentation, continue home Aricept regimen, will maintain on fall and aspiration precautions, PT/OT/case management consulted for discharge planning. #10. Former tobacco use: Encourage continued tobacco cessation. #11. BURKE: BiPAP nightly. #12. DVT prophylaxis: Continue home Eliquis regimen. #13. CODE status: Patient HCPOA and living will are not in place but her is her medical decision-maker if necessary. Full Code based on recent admission discussions. Charges/Coding Visit Charges Inpatient E&M: 64291 Init Hosp L2 05/13/242 <Electronically signed by Kanwal Aguilar MD> Cosigner Signature (if applicable): CC: WALLPAPER PRINTER HELPERJarad Boyer; Dr. Kanwal Aguilar MD~ Signed [facility] Work Phone: Reason for referral (narrative)* Consultation (Routine) - Pending Review Specialty Diagnoses / Procedures Referred By Contac t Referred To Contact Geriatric Medicine Diagnoses Cognitive impairment Procedures OK OFFICE/OUTPATIENT [facility] [place] 60-74 MINUTES Sharita Rousseau MD [address] [place] [address] [facility] [address] [place] [address] Referral ID Status Reason Start Date Expiration Date Visits Requested Visits Authorized [id number] Pending Review Specialty Services Required 3 12/24/2023 1 1 [facility] for referral (narrative)No reason for referral information [facility]WMer[facility] Work Phone: Summary Purpose Family History Relationship Condition Age at Onset Recorded Date/T lise mother Malignant neoplasm Unknown father Malignant neoplasm Unknown Advance Directives Advance Directive Response Recorded Date/ Time Living Will No March 06 8:24pm Power of Terminal Worker No March 06, 2019 8:24pm Advance Directive Response Recorded Date/ Time Living Will No August 05, 2022 6:01pm Power of Terminal Worker No August 05 6:01pm Advance Directive Response Recorded Date/ Time Living Will No August 14, 2022 5 :51pm Power of Terminal Worker No August 14, 2022 5:51pm Latest Code Status on File Code Status Date Activated Date Inactivated Comments Full Code 10/03/2022 9:29 PM Latest Code Status on File Code Status Date Activated Date Inactivated Comments Full Code 10/03/2022 9:29 PM 10/15/2022 5:28 PM Advance Directive Response Recorded Date/ Time Living Will No December 23 023 2:26pm Power of Terminal Worker No December 23, 2022 2:26pm Latest Code Status on File Code Status Date Activated Date Inactivated Comments Full Code 12/23/2022 10:36 PM 01/02/2023 12:06 AM Latest Code Status on File Code Status Date Activated Date Inactivated Comments Full Code 12/23/2022 10:36 PM 01/02/2023 12:06 AM Code Status History Code Status Date Activated Date Inactivated Comments Full Code 10/03/2022 9:29 PM 10/15/2022 5:28 PM Code Status History Code Status Date Activated Date Inactivated Comments Full Code 10/03/2022 9:29 PM 10/15/2022 5:28 PM Advance Directive Response Recorded Date/ Time Living Will No April 14, 2023 2:07am Power of Terminal Worker No April 13 2:07am Advance Directive Response Recorded Date/ Time Living Will No April 14, 2023 3:07am Power of Terminal Worker No April 13 3:07am Advance Directive Response Recorded Date/ Time Living Will No December 30 024 12:21am Power of Terminal Worker No December 31, 2023 12:21am Living Will No February 13 12:22am Power of Terminal Worker No February 13 025 12:22am Living Will Yes April 20, 2024 5:06pm Power of Terminal Worker Yes April 20 5:06pm Name of Medical Power of Terminal Worker April 20, 2024 5:06pm Advance Directive Response Recorded Date/ Time Living Will No December 30, 024 12:21am Power of Terminal Worker No December 31, 2023 12:21am Living Will No February 13 12:22am Power of Terminal Worker No February 13 12:22am Living Will Yes April 20, 2024 9:30pm Power of Terminal Worker Yes April 20 9:30pm Name of Medical Power of Terminal Worker April 20, 2024 9:30pm Advance Directive Response Recorded Date/ Time Living Will No February 13 12:22am Do you have a Healthcare Power of Terminal Worker? No February 14, 2024 12:22am Living Will Yes April 20, 2024 9:30pm Do you have a Healthcare Power of Terminal Worker? Yes April 20, 2024 9:30pm Name of Medical Power of Terminal Worker April 20, 2024 9:30pm Living Will Yes May 13, 2024 3:50pm Do you have a Healthcare Power of Terminal Worker? No May 13, 2024 3:50pm Advance Directive Response Recorded Date/ Time Living Will No February 13 12:22am Do you have a Healthcare Power of Terminal Worker? No February 14, 2024 12:22am Living Will Yes April 20, 2024 9:30pm Do you have a Healthcare Power of Terminal Worker? Yes April 20, 2024 9:30pm Name of Medical Power of Terminal Worker April 20, 2024 9:30pm Living Will Yes May 13, 2024 11:24pm Do you have a Healthcare Power of Terminal Worker? No May 13, 2024 11:24pm Chief Complaint and Reason for Visit Chief Complaint BI LAT HIPS RM 5 Reason for Visit Degenerative joint d isease of right hip Compression fracture of lumbar vertebra Decreased bone density Lumbar pain Chief Complaint BI LAT HIPS RM 5 NONDISPLACED INTERTRACHANTERTIC FX OF LEFT FEMUR Reason for Visit Degenerative joint d isease of right hip Compression fracture of lumbar vertebra Decreased bone density Lumbar pain Abrasion of elbow, left Abrasion of knee, left Closed head injury without loss of consciousness Closed intertrochanteric fracture of left hip Fall from slip, trip, or stumble Intertrochanteric fracture of left femur Chief Complaint BI LAT HIPS RM 5 NONDISPLACED INTERTRACHANTERTIC FX OF LEFT FEMUR NONDISPLACED INTERTRACHANTERTIC FX OF LEFT FEMUR NONDISPLACED INTERTRACHANTERTIC FX OF LEFT FEMUR NONDISPLACED INTERTRACHANTERTIC FX OF LEFT FEMUR NONDISPLACED INTERTRACHANTERTIC FX OF LEFT FEMUR NONDISPLACED INTERTRACHANTERTIC FX OF LEFT FEMUR NONDISPLACED INTERTRACHANTERTIC FX OF LEFT FEMUR NONDISPLACED INTERTRACHANTERTIC FX OF LEFT FEMUR NONDISPLACED INTERTRACHANTERTIC FX OF LEFT FEMUR NONDISPLACED INTERTRACHANTERTIC FX OF LEFT FEMUR NONDISPLACED INTERTRACHANTERTIC FX OF LEFT FEMUR NONDISPLACED INTERTRACHANTERTIC FX OF LEFT FEMUR NONDISPLACED INTERTRACHANTERTIC FX OF LEFT FEMUR NONDISPLACED INTERTRACHANTERTIC FX OF LEFT FEMUR NONDISPLACED INTERTRACHANTERTIC FX OF LEFT FEMUR Reason for Visit Degenerative joint d isease of right hip Compression fracture of lumbar vertebra Decreased bone density Lumbar pain Abrasion of elbow, left Abrasion of knee, left Acute blood loss anemia Closed head injury without loss of consciousness Closed intertrochanteric fracture of left hip Compression fracture Fall from slip, trip, or stumble Hypoxia Intertrochanteric fracture of left femur Lytic bone lesions on xray Pleural effusion Shortness of breath Toxic metabolic encephalopathy Chief Complaint BI LAT HIPS RM 5 NONDISPLACED INTERTRACHANTERTIC FX OF LEFT FEMUR NONDISPLACED INTERTRACHANTERTIC FX OF LEFT FEMUR CP NONDISPLACED INTERTRACHANTERTIC FX OF LEFT FEMUR NONDISPLACED INTERTRACHANTERTIC FX OF LEFT FEMUR NONDISPLACED INTERTRACHANTERTIC FX OF LEFT FEMUR NONDISPLACED INTERTRACHANTERTIC FX OF LEFT FEMUR NONDISPLACED INTERTRACHANTERTIC FX OF LEFT FEMUR NONDISPLACED INTERTRACHANTERTIC FX OF LEFT FEMUR NONDISPLACED INTERTRACHANTERTIC FX OF LEFT FEMUR NONDISPLACED INTERTRACHANTERTIC FX OF LEFT FEMUR NONDISPLACED INTERTRACHANTERTIC FX OF LEFT FEMUR NONDISPLACED INTERTRACHANTERTIC FX OF LEFT FEMUR NONDISPLACED INTERTRACHANTERTIC FX OF LEFT FEMUR NONDISPLACED INTERTRACHANTERTIC FX OF LEFT FEMUR NONDISPLACED INTERTRACHANTERTIC FX OF LEFT FEMUR LYTIC BONE LESIONS ON XRAY Reason for Visit Degenerative joint d isease of right hip Compression fracture of lumbar vertebra Decreased bone density Lumbar pain Abrasion of elbow, left Abrasion of knee, left Compression fracture Hypoxia Lytic bone lesions on xray Acute blood loss anemia Closed head injury without loss of consciousness Fall from slip, trip, or stumble Intertrochanteric fracture of left femur Pleural effusion Shortness of breath Toxic metabolic encephalopathy Chief Complaint LYTIC BONE LESIONS O N XRAY fall Chief Complaint fall LAB WORK LAB WORK LABWORK LAB WORK LAB WORK USP LAB WORK Chief Complaint fall LAB WORK LAB WORK LABWORK LAB WORK LAB WORK USP LABWORK USP LAB WORK Chief Complaint fall LAB WORK LAB WORK LABWORK LAB WORK LAB WORK USP LABWORK USP LAB WORK USP LAB WORK Chief Complaint fall LAB WORK LAB WORK LABWORK LAB WORK LAB WORK USP LABWORK USP LAB WORK USP LAB WORK USP LAB WORK Chief Complaint fall LAB WORK LAB WORK LABWORK LAB WORK LAB WORK USP LABWORK USP LAB WORK USP LAB WORK USP LAB WORK USP LABWORK Chief Complaint fall LAB WORK LAB WORK LABWORK LAB WORK LAB WORK USP LABWORK USP LAB WORK USP LAB WORK USP LAB WORK USP LABWORK LABWORK Chief Complaint fall LAB WORK LAB WORK LABWORK LAB WORK LAB WORK USP LABWORK USP LAB WORK USP LAB WORK USP LAB WORK USP LABWORK USP LAB WORK LABWORK Chief Complaint fall LAB WORK LAB WORK LABWORK LAB WORK LAB WORK USP LABWORK USP LAB WORK USP LAB WORK USP LAB WORK USP LABWORK USP LAB WORK USP LAB WORK LABWORK Chief Complaint fall LAB WORK LAB WORK LABWORK LAB WORK LAB WORK USP LABWORK USP LAB WORK USP LAB WORK USP LAB WORK USP LABWORK USP LAB WORK USP LAB WORK LABWORK LABWORK Chief Complaint fall LAB WORK LAB WORK LABWORK LAB WORK LAB WORK USP LABWORK USP LAB WORK USP LAB WORK USP LAB WORK USP LABWORK USP LAB WORK USP LAB WORK LABWORK USP LAB WORK LABWORK LABWORK Chief Complaint fall LAB WORK LAB WORK LABWORK LAB WORK LAB WORK USP LABWORK USP LAB WORK USP LAB WORK USP LAB WORK USP LABWORK USP LAB WORK USP LAB WORK LABWORK USP LAB WORK LABWORK LABWORK ACUTE PROCTITIS, ACUTE PANCREATITIS AND UTI Reason for Visit Accelerated hyperten xi Acute cystitis without hematuria Hypertensive urgency Opioid withdrawal Pancreatitis Proctitis Rectal mass Sepsis Type 2 diabetes mellitus Urinary tract infection CKD (chronic kidney disease), stage III Chief Complaint fall LAB WORK LAB WORK LABWORK LAB WORK LAB WORK USP LABWORK USP LAB WORK USP LAB WORK USP LAB WORK USP LABWORK USP LAB WORK USP LAB WORK LABWORK USP LAB WORK LABWORK LABWORK ACUTE PROCTITIS, ACUTE PANCREATITIS AND UTI ACUTE PROCTITIS, ACUTE PANCREATITIS AND UTI ACUTE PROCTITIS, ACUTE PANCREATITIS AND UTI ACUTE PROCTITIS, ACUTE PANCREATITIS AND UTI ACUTE PROCTITIS, ACUTE PANCREATITIS AND UTI ACUTE PROCTITIS, ACUTE PANCREATITIS AND UTI ACUTE PROCTITIS, ACUTE PANCREATITIS AND UTI ACUTE PROCTITIS, ACUTE PANCREATITIS AND UTI Reason for Visit Accelerated hyperten xi Acute cystitis without hematuria Hyperammonemia Hyperglycemia Hypertensive urgency Leukocytosis Opiate dependence Opioid withdrawal Proctitis Rectal mass Toxic metabolic encephalopathy Type 2 diabetes mellitus Urinary tract infection CKD (chronic kidney disease), stage III Chief Complaint USP LAB WOR K LABWORK USP LAB WORK LABWORK LABWORK ACUTE PROCTITIS, ACUTE PANCREATITIS AND UTI ACUTE PROCTITIS, ACUTE PANCREATITIS AND UTI ACUTE PROCTITIS, ACUTE PANCREATITIS AND UTI ACUTE PROCTITIS, ACUTE PANCREATITIS AND UTI ACUTE PROCTITIS, ACUTE PANCREATITIS AND UTI ACUTE PROCTITIS, ACUTE PANCREATITIS AND UTI ACUTE PROCTITIS, ACUTE PANCREATITIS AND UTI ACUTE PROCTITIS, ACUTE PANCREATITIS AND UTI Reason for Visit Accelerated hyperten xi Hyperammonemia Hyperglycemia Hypertensive urgency Leukocytosis Opiate dependence Opioid withdrawal Proctitis Rectal mass Toxic metabolic encephalopathy Type 2 diabetes mellitus Urinary tract infection CKD (chronic kidney disease), stage III Acute cystitis without hematuria Sepsis Chief Complaint Admit Date RESP FAILURE, UTI December 30, 2023 10:40pm RESP FAILURE, ?PNA, CHF EXAC, GI BLEED, NSTEMI, December 31, 2023 8:24am RESP FAILURE, ?PNA, CHF EXAC, GI BLEED, NSTEMI, December 31, 2023 11:03am RESP FAILURE, ?PNA, CHF EXAC, GI BLEED, NSTEMI, December 31, 2023 7:33pm RESP FAILURE, ?PNA, CHF EXAC, GI BLEED, NSTEMI, January 01, 2024 7:17am RESP FAILURE, ?PNA, CHF EXAC, GI BLEED, NSTEMI, January 01, 2024 10:32am RESP FAILURE, ?PNA, CHF EXAC, GI BLEED, NSTEMI, January 02, 2024 9:02am RESP FAILURE, ?PNA, CHF EXAC, GI BLEED, NSTEMI, January 02, 2024 10:43am RESP FAILURE, ?PNA, CHF EXAC, GI BLEED, NSTEMI, January 03, 2024 9:01am PREOP January 04, 2024 5:13am RESP FAILURE, ?PNA, CHF EXAC, GI BLEED, NSTEMI, January 04, 2024 11:18am RESP FAILURE, UTI January 05, 2024 1:57pm Hospital FU January 25, 2024 8:18am SEPSIS 2/2 UNKNOWN SOURCE February 12, 025 9:03pm SEPSIS 2/2 UNKNOWN SOURCE February 12 025 9:12pm SEPSIS 2/2 UNKNOWN SOURCE February 13 025 12:48am SEPSIS 2/2 UNKNOWN SOURCE February 13, 025 7:03am SEPSIS 2/2 UNKNOWN SOURCE February 14, 025 10:44am SEPSIS 2/2 UNKNOWN SOURCE February 15, 025 2:57pm SEPSIS 2/2 UNKNOWN SOURCE February 16, 025 3:14pm ams April 20, 2024 7:18 pm SEPSIS UTI DURAN ENCEPHALOPATHY April 20, 2024 8:22pm Reason for Visit Admit Date Acidosis, lactic December 30, 2023 10:40pm Acute kidney injury December 30, 2023 10:40pm CHF exacerbation December 30, 2023 10:40pm Elevated troponin December 30, 2023 10:40pm Febrile December 30, 2023 10:40pm Hypoxia December 30, 2023 10:40pm Urinary tract infection December 29, 024 10:40pm Myocardial infarction type 2 December 292023 10:40pm Chest pain January 25, 2024 8:18am Gastroenteritis January 25, 2024 8:18am Acute hyperglycemia February 13, 2024 9: 03pm Acute lactic acidosis February 13, 2024 9:03pm DURAN (acute kidney injury) February 12 9:03pm High anion gap metabolic acidosis Januar 2024 9:03pm Leukocytosis February 13, 2024 9: 03pm Sepsis February 13, 2024 9: 03pm Toxic metabolic encephalopathy February 122024 9:03pm Acute kidney injury April 20, 2024 8:22 pm Acute UTI April 20, 2024 8:22 pm Candidal intertrigo April 20, 2024 8:22 pm High anion gap metabolic acidosis April 20, 2024 8:22pm Recurrent falls April 20, 2024 8:22 pm Sepsis April 20, 2024 8:22 pm Chief Complaint Admit Date RESP FAILURE, UTI December 30, 2023 10:40pm RESP FAILURE, ?PNA, CHF EXAC, GI BLEED, NSTEMI, December 31, 2023 8:24am RESP FAILURE, ?PNA, CHF EXAC, GI BLEED, NSTEMI, December 31, 2023 11:03am RESP FAILURE, ?PNA, CHF EXAC, GI BLEED, NSTEMI, December 31, 2023 7:33pm RESP FAILURE, ?PNA, CHF EXAC, GI BLEED, NSTEMI, January 01, 2024 7:17am RESP FAILURE, ?PNA, CHF EXAC, GI BLEED, NSTEMI, January 01, 2024 10:32am RESP FAILURE, ?PNA, CHF EXAC, GI BLEED, NSTEMI, January 02, 2024 9:02am RESP FAILURE, ?PNA, CHF EXAC, GI BLEED, NSTEMI, January 02, 2024 10:43am RESP FAILURE, ?PNA, CHF EXAC, GI BLEED, NSTEMI, January 03, 2024 9:01am PREOP January 04, 2024 5:13am RESP FAILURE, ?PNA, CHF EXAC, GI BLEED, NSTEMI, January 04, 2024 11:18am RESP FAILURE, UTI January 05, 2024 1:57pm Hospital January 25, 2024 8:18am SEPSIS 2/2 UNKNOWN SOURCE February 12, 025 9:03pm SEPSIS 2/2 UNKNOWN SOURCE February 12, 2 025 9:12pm SEPSIS 2/2 UNKNOWN SOURCE February 13, 2 025 12:48am SEPSIS 2/2 UNKNOWN SOURCE February 13, 2 025 7:03am SEPSIS 2/2 UNKNOWN SOURCE February 14, 2 025 10:44am SEPSIS 2/2 UNKNOWN SOURCE February 15, 2 025 2:57pm SEPSIS 2/2 UNKNOWN SOURCE February 16, 2 025 3:14pm ams April 20, 2024 7:18 pm SEPSIS UTI DURAN ENCEPHALOPATHY April 20, 2024 7:19pm SEPSIS UTI DURAN ENCEPHALOPATHY April 7:41am SEPSIS UTI DURAN ENCEPHALOPATHY April 4:42pm SEPSIS UTI DURAN ENCEPHALOPATHY April 5:40pm SEPSIS UTI DURAN ENCEPHALOPATHY April 4:23pm SEPSIS UTI DURAN ENCEPHALOPATHY April 2:18pm Reason for Visit Admit Date Acidosis, lactic December 30, 2023 10:40pm Acute kidney injury December 30, 2023 10:40pm CHF exacerbation December 30, 2023 10:40pm Elevated troponin December 30, 2023 10:40pm Febrile December 30, 2023 10:40pm Hypoxia December 30, 2023 10:40pm Urinary tract infection December 29, 2 024 10:40pm Myocardial infarction type 2 December 292023 10:40pm Chest pain January 25, 2024 8:18am Gastroenteritis January 25, 2024 8:18am Acute hyperglycemia February 13, 2024 9: 03pm Acute lactic acidosis February 13, 2024 9:03pm DURAN (acute kidney injury) February 12 025 9:03pm High anion gap metabolic acidosis Febuar 2024 9:03pm Leukocytosis February 13, 2024 9: 03pm Sepsis February 13, 2024 9: 03pm Toxic metabolic encephalopathy February 122024 9:03pm Acute delirium April 20, 2024 7:19 pm Acute encephalopathy April 20, 2024 7:1 9pm Acute kidney injury April 20, 2024 7:19 pm Acute UTI April 20, 2024 7:19 pm Altered level of consciousness April 7:19pm Candidal intertrigo April 20, 2024 7:19 pm High anion gap metabolic acidosis April 20, 2024 7:19pm Recurrent falls April 20, 2024 7:19 pm Sepsis April 20, 2024 7:19 pm Chief Complaint Admit Date Hospital January 25, 2024 8:18am SEPSIS 2/2 UNKNOWN SOURCE February 12, 2 025 9:03pm SEPSIS 2/2 UNKNOWN SOURCE February 12, 2 025 9:12pm SEPSIS 2/2 UNKNOWN SOURCE February 13, 2 025 12:48am SEPSIS 2/2 UNKNOWN SOURCE February 13, 2 025 7:03am SEPSIS 2/2 UNKNOWN SOURCE February 14, 2 025 10:44am SEPSIS 2/2 UNKNOWN SOURCE February 15, 2 025 2:57pm SEPSIS 2/2 UNKNOWN SOURCE February 16, 2 025 3:14pm ams April 20, 2024 7:18 pm SEPSIS UTI DURAN ENCEPHALOPATHY April 20, 2024 7:19pm SEPSIS UTI DURAN ENCEPHALOPATHY April 7:41am SEPSIS UTI DURAN ENCEPHALOPATHY April 4:42pm SEPSIS UTI DURAN ENCEPHALOPATHY April 5:40pm SEPSIS UTI DURAN ENCEPHALOPATHY April 4:23pm SEPSIS UTI DURAN ENCEPHALOPATHY April 2:18pm FALL, INTRACTABLE BACK PAIN May 13, 2 025 9:36pm Reason for Visit Admit Date Chest pain January 25, 2024 8:18am Gastroenteritis January 25, 2024 8:18am Acute hyperglycemia February 13, 2024 9: 03pm Acute lactic acidosis February 13, 2024 9:03pm DURAN (acute kidney injury) February 12 025 9:03pm High anion gap metabolic acidosis Januar 2024 9:03pm Leukocytosis February 13, 2024 9: 03pm Sepsis February 13, 2024 9: 03pm Toxic metabolic encephalopathy February 122024 9:03pm Acute delirium April 20, 2024 7:19 pm Acute encephalopathy April 20, 2024 7:1 9pm Acute kidney injury April 20, 2024 7:19 pm Acute UTI April 20, 2024 7:19 pm Altered level of consciousness April 7:19pm Candidal intertrigo April 20, 2024 7:19 pm High anion gap metabolic acidosis April 20, 2024 7:19pm Recurrent falls April 20, 2024 7:19 pm Sepsis April 20, 2024 7:19 pm Fall May 13, 2024 9:36 pm Inability to walk May 13, 2024 9:36 pm Intractable low back pain May 13 9:36pm Hypertension May 13, 2024 9:36 pm Chief Complaint Admit Date Hospital January 25, 2024 8:18am SEPSIS 2/2 UNKNOWN SOURCE February 12, 2 025 9:03pm SEPSIS 2/2 UNKNOWN SOURCE February 12, 2 025 9:12pm SEPSIS 2/2 UNKNOWN SOURCE February 13, 2 025 12:48am SEPSIS 2/2 UNKNOWN SOURCE February 13, 2 025 7:03am SEPSIS 2/2 UNKNOWN SOURCE February 14, 2 025 10:44am SEPSIS 2/2 UNKNOWN SOURCE February 15, 2 025 2:57pm SEPSIS 2/2 UNKNOWN SOURCE February 16, 2 025 3:14pm ams April 20, 2024 7:18 pm SEPSIS UTI DURAN ENCEPHALOPATHY April 20, 2024 7:19pm SEPSIS UTI DURAN ENCEPHALOPATHY April 7:41am SEPSIS UTI DURAN ENCEPHALOPATHY April 4:42pm SEPSIS UTI DURAN ENCEPHALOPATHY April 5:40pm SEPSIS UTI DURAN ENCEPHALOPATHY April 4:23pm SEPSIS UTI DURAN ENCEPHALOPATHY April 2:18pm FALL, INTRACTABLE BACK PAIN May 13, 2 025 9:36pm FALL, INTRACTABLE BACK PAIN May 14, 2 025 10:11am FALL, INTRACTABLE BACK PAIN May 14, 2 025 11:43am FALL, INTRACTABLE BACK PAIN May 15, 2 025 10:51am FALL, INTRACTABLE BACK PAIN May 16, 2 025 9:10am FALL, INTRACTABLE BACK PAIN May 17, 2 025 7:52am Reason for Visit Admit Date Chest pain January 25, 2024 8:18am Gastroenteritis January 25, 2024 8:18am Acute hyperglycemia February 13, 2024 9: 03pm Acute lactic acidosis February 13, 2024 9:03pm DURAN (acute kidney injury) February 12 025 9:03pm High anion gap metabolic acidosis Januar 2024 9:03pm Leukocytosis February 13, 2024 9: 03pm Sepsis February 13, 2024 9: 03pm Toxic metabolic encephalopathy February 122024 9:03pm Acute delirium April 20, 2024 7:19 pm Acute encephalopathy April 20, 2024 7:1 9pm Acute kidney injury April 20, 2024 7:19 pm Acute UTI April 20, 2024 7:19 pm Altered level of consciousness April 7:19pm Candidal intertrigo April 20, 2024 7:19 pm High anion gap metabolic acidosis April 20, 2024 7:19pm Recurrent falls April 20, 2024 7:19 pm Sepsis April 20, 2024 7:19 pm DURAN (acute kidney injury) May 14 11:43am Fall May 14, 2024 11:4 3am Inability to walk May 14, 2024 11:4 3am Intractable low back pain May 14 11:43am Hypertension May 14, 2024 11:4 3am Reason for Referral Specialty Diagnoses / Procedures Referred By Contherbert t Referred To Contact Home Health Services Diagnoses Closed displaced intertrochanteric fracture of right femur with routine healing, subsequent encounter Procedures OK OFFICE/OUTPATIENT NEW HIGH MDM 60 MINUTES Yifan Lozano PA-C [address] [address] Referral ID Status Reason Start Date Expiration Date Visits Requested Visits Authorized [id number] Pending Review Specialty Services Required 04/10/2023 04/04/2024 [id number] Referral ID Status Reason Start Date Expiration Date Visits Requested Visits Authorized [id number] Pending Review Specialty Services Required 04/12/2023 10/09/2023 [id number] Additional Source Comments INFORMATION SOURCE (unrecogn ized section and content) DATE CREATED AUTHOR 08/08/2017 [facility] DATE CREATED AUTHOR AUTHOR'S ORGANIZ ATION 04/03/2018 [facility] DATE CREATED AUTHOR AUTHOR'S ORGANIZ ATION 04/17/2018 [facility] DATE CREATED AUTHOR AUTHOR'S ORGANIZ ATION 01/01/2023 [facility] DATE CREATED AUTHOR AUTHOR'S ORGANIZ ATION 05/09/2023 [facility] DATE CREATED AUTHOR AUTHOR'S ORGANIZ ATION 08/06/2024 [facility] DATE CREATED AUTHOR AUTHOR'S ORGANIZ ATION 08/11/2024 [facility] Goals (unrecognized section and content) Goals may be documented in a n alternate sectionGoals may be documented in an alternate sectionGoals may be documented in an alternate sectionGoals may be documented in an alternate sectionGoals may be documented in an alternate sectionGoals may be documented in an alternate sectionGoals may be documented in an alternate sectionGoals may be documented in an alternate sectionGoals may be documented in an alternate sectionGoals may be documented in an alternate sectionGoals may be documented in an alternate sectionGoals may be documented in an alternate sectionGoals may be documented in an alternate sectionGoals may be documented in an alternate sectionGoals may be documented in an alternate section Care Teams (unrecognized sec tion and content) Team Status: Active Member Role Status Dates Dr. Cici Calderon MD Family Provider Active ORESTES Cano Primary Care Provider Active Team Status: Inactive Member Role Status Dates Dr. Cici Calderon MD Primary Care Provider, Referring Provider Active DIDIER Reyes Attending Provider Active Team Status: Inactive Member Role Status Dates Dr. Cici Calderon MD Primary Care Provider Active Dr. Ethan Hayes MD Attending Provider Active Team Status: Inactive Member Role Status Dates Rudy Sharla , WALLPAPER PRINTER HELPER-C Primary Care Provide r, Attending Provider, Referring Provider Active Team Status: Active Member Role Status Dates Rudy Boyer , WALLPAPER PRINTER HELPER-C Primary Care Provider Active Dr. Nico Arce MD Emergency Provider Active Dr. Home Valverde MD Admit Provider, Attending Provider, Referring Provider Active Team Status: Active Member Role Status Dates Rudyjody Boyer , WALLPAPER PRINTER HELPER-C Primary Care Provider Active Dr. Nico Arce MD Emergency Provider Active Dr. Home Valverde MD Admit Provider, Referring Provider, Other Provider Active Dr. John Short DO Attending Provider, Other Pro vider Active Team Status: Active Member Role Status Dates Rudyjody Boyer , WALLPAPER PRINTER HELPER-C Primary Care Provider Active Dr. Nico Arce MD Emergency Provider Active Dr. Home Valverde MD Admit Provider, Attending Provider, Referring Provider, Other Provider Active Dr. John Short , Other Provider Active Team Status: Active Member Role Status Dates Rudy Boyer , WALLPAPER PRINTER HELPER-C Primary Care Provider Active Dr. Nico Arce MD Emergency Provider Active Dr. Home Valverde MD Admit Provider, Referring Provider, Other Provider Active Dr. John Short DO Other Provider Active Dr. Kanwal Aguilar MD Attending Provider Active Team Status: Active Member Role Status Dates Rudy Boyer , WALLPAPER PRINTER HELPER-C Primary Care Provider Active Dr. Nico Arce MD Emergency Provider Active Dr. Home Valverde MD Admit Provider, Referring Provider, Other Provider Active Dr. Tamiko Quigley DO Attending Provider, Other Provide r Active Dr. John Short , Other Provider Active Dr. Josue Ivan MD Other Provider Active Dr. Josephine Lutz MD Other Provider Active Dr. Kassandra Fountain MD Other Provider Active Dr. Gerry Austin MD Other Provider Active Dr. Regina Oden , Other Provider Active Team Status: Active Member Role Status Dates Rudyjody Boyer , WALLPAPER PRINTER HELPER-C Primary Care Provider Active Dr. Nico Arce MD Emergency Provider Active Dr. Home Valverde MD Admit Provider, Referring Provider, Other Provider Active Dr. Tamiko Quigley , DO Other Provider Active Dr. John Short , DO Other Provider Active Dr. Home Miller MD Attending Provider, Other Provide r Active Team Status: Active Member Role Status Dates Rudy Boyer , WALLPAPER PRINTER HELPER-C Primary Care Provider Active Dr. Nico Arce MD Emergency Provider Active Dr. Home Valverde MD Admit Provider, Referring Provider, Other Provider Active Dr. Tamiko Quigley , DO Attending Provider, Other Provide r Active Dr. John Short , DO Other Provider Active Dr. Home Miller MD Other Provider Active Dr. Filemon Coffman MD Other Provider Active Dr. Atul Quezada , DO Other Provider Active Dr. Dann Linn MD Other Provider Active Dr. Floyd Kelley MD Other Provider Active Cindy Wyatt WALLPAPER PRINTER HELPER, WALLPAPER PRINTER HELPER-C Other Provider Active Team Status: Active Member Role Status Dates Rudy Boyer WALLPAPER PRINTER HELPER-C Primary Care Provider Active Dr. Nico Arce MD Emergency Provider Active Dr. Home Valverde MD Admit Provider, Referring Provider, Other Provider Active Dr. Tamiko Quigley , DO Other Provider Active Dr. oJhn Short , DO Other Provider Active Dr. Home Miller MD Other Provider Active Dr. Filemon Coffman MD Other Provider Active Dr. Atul Quezada , DO Other Provider Active Dr. Dann Linn MD Attending Provider, Other Pro vider Active Dr. Floyd Kelley MD Other Provider Active Cindy Wyatt WALLPAPER PRINTER HELPER, WALLPAPER PRINTER HELPER-C Other Provider Active Team Status: Active Member Role Status Dates Rudy Boyer WALLPAPER PRINTER HELPER-C Primary Care Provider Active Dr. Nico Arce MD Emergency Provider Active Dr. Home Valverde MD Admit Provider, Referring Provider, Other Provider Active Dr. Tamiko Quigley , DO Attending Provider, Other Provide r Active Dr. John Short , DO Other Provider Active Dr. Home Miller MD Other Provider Active Dr. Filemon Coffman MD Other Provider Active Dr. Atul Quezada , DO Other Provider Active Dr. Dann Linn MD Other Provider Active Dr. Floyd Kelley MD Other Provider Active Cindy Wyatt WALLPAPER PRINTER HELPER, WALLPAPER PRINTER HELPER-C Other Provider Active Dr. Prem Toro MD Other Provider Active Team Status: Active Member Role Status Dates Rudy Boyer , WALLPAPER PRINTER HELPER-C Primary Care Provider Active Dr. Nico Arce MD Emergency Provider Active Dr. Home Valverde MD Admit Provider, Referring Provider, Other Provider Active Dr. Tamiko Quigley , DO Other Provider Active Dr. John Short , DO Other Provider Active Dr. Home Miller MD Other Provider Active Dr. Filemon Coffman MD Other Provider Active Dr. Atul Quezada , DO Other Provider Active Dr. Dann Linn MD Attending Provider, Other Pro vider Active Dr. Floyd Kelley MD Other Provider Active Cindy Wyatt WALLPAPER PRINTER HELPER, WALLPAPER PRINTER HELPER-C Other Provider Active Dr. Prem Toro MD Other Provider Active Team Status: Inactive Member Role Status Dates Rudy Boyer NP-C Primary Care Provider Active Dr. Nico Arce MD Emergency Provider Active Dr. Home Valverde MD Admit Provider, Referring Provider, Other Provider Active Dr. Tamiko Quigley , DO Attending Provider Active Dr. John Short , DO Other Provider Active Dr. Home Miller MD Other Provider Active Dr. Filemon Coffman MD Other Provider Active Dr. Atul Quezada , DO Other Provider Active Dr. Dann Linn MD Other Provider Active Dr. Floyd Kelley MD Other Provider Active Cindy Wyatt WALLPAPER PRINTER HELPER, WALLPAPER PRINTER HELPER-C Other Provider Active Dr. Prem Toro MD Other Provider Active Leather Production Artisan Relationship Specialty Start Date End Date Cici Calderon MD PCP - General Family Medicine 04/24/13 [employer] Production Artisan Relationship Specialty Start Date End Date Cici Calderon MD PCP - General Family Medicine 04/24/13 Team Status: Active Member Role Status Dates Rudy Boyer NP-C Primary Care Provider Active Dr. Nico Arce MD Emergency Provider Active Dr. Home Valverde MD Admit Provider, Other Provide r Active Dr. John Short , DO Attending Provider, Other Pro vider Active Team Status: Active Member Role Status Dates Rudy Boyer NP-C Primary Care Provider Active Dr. Nico Arce MD Emergency Provider Active Dr. Home Valverde MD Admit Provider, Other Provide r Active Dr. John Short , DO Attending Provider, Other Pro vider Active Dr. Kanwal Aguilar MD Active Team Status: Active Member Role Status Dates Rudy Boyer WALLPAPER PRINTER HELPER-C Primary Care Provider Active Dr. Nico Arce MD Emergency Provider Active Dr. Home Valverde MD Admit Provider, Other Provide r Active Dr. Tamiko Quigley , DO Attending Provider, Other Provide r Active Dr. John Short , DO Other Provider Active Dr. Josue Ivan MD Other Provider Active Dr. Josephine Lutz MD Other Provider Active Dr. Kassandra Fountain MD Other Provider Active Dr. Gerry Austin MD Other Provider Active Dr. Regina Oden , DO Other Provider Active Team Status: Active Member Role Status Dates Rudy Boyer WALLPAPER PRINTER HELPER-C Primary Care Provider Active Dr. Nico Arce MD Emergency Provider Active Dr. Home Valverde MD Admit Provider, Other Provide r Active Dr. Tamiko Quigley , DO Attending Provider, Other Provide r Active Dr. John Short , DO Other Provider Active Dr. Home Miller MD Other Provider Active Dr. Filemon Coffman MD Other Provider Active Dr. Atul Quezada , Other Provider Active Dr. Dann Linn MD Other Provider Active Dr. Floyd Kelley MD Other Provider Active Cindy Wyatt WALLPAPER PRINTER HELPER, WALLPAPER PRINTER HELPER-C Other Provider Active Team Status: Active Member Role Status Dates Rudy Boyer WALLPAPER PRINTER HELPER-C Primary Care Provider Active Dr. Nico Arce MD Emergency Provider Active Dr. Home Valverde MD Admit Provider, Other Provide r Active Dr. Tamiko Quigley , DO Attending Provider, Other Provide r Active Dr. John Short , DO Other Provider Active Dr. Home Miller MD Other Provider Active Dr. Filemon Coffman MD Other Provider Active Dr. Atul Quezada , Other Provider Active Dr. Dann Linn MD Other Provider Active Dr. Floyd Kelley MD Other Provider Active Cindy Wyatt WALLPAPER PRINTER HELPER, WALLPAPER PRINTER HELPER-C Other Provider Active Dr. Prem Toro MD Other Provider Active Team Status: Active Member Role Status Dates Rudy Boyer WALLPAPER PRINTER HELPER-C Primary Care Provider Active Dr. Ethan Hayes MD Attending Provider Active Dr. Home Valverde MD Referring Provider Active Team Status: Inactive Member Role Status Dates Rudy Boyer , WALLPAPER PRINTER HELPER-C Primary Care Provider Active Dr. Regina Oden , DO Attending Provider, Referring Prov ider Active Leather Production Artisan Relationship Specialty Start Date End Date Cici Calderon MD PCP - General Family Medicine 04/24/13 Leather Production Artisan Relationship Specialty Start Date End Date Cici Calderon [address] [place] [address] PCP - General 12/21/15 Leather Production Artisan Relationship Specialty Start Date End Date Cici Calderon MD PCP - General Family Medicine 04/24/13 Leather Production Artisan Relationship Specialty Start Date End Date Cici Calderon [address] [place] [address] PCP - General 12/21/15 Leather Production Artisan Relationship Specialty Start Date End Date Cici Calderon [address] [place] [address] PCP - General 12/21/15 Leather Production Artisan Relationship Specialty Start Date End Date Cici Calderon MD PCP - General Family Medicine 04/24/13 Leather Production Artisan Relationship Specialty Start Date End Date Cici Calderon [address] [place] [phone] PCP - General 12/21/15 Leather Production Artisan Relationship Specialty Start Date End Date Cici Calderon MD PCP - General Family Medicine 04/24/13 Leather Production Artisan Relationship Specialty Start Date End Date Cici Calderon [address] [place] [phone] PCP - General 12/21/15 Leather Production Artisan Relationship Specialty Start Date End Date Cici Calderon MD PCP - General Family Medicine 04/24/13 Team Status: Inactive Member Role Status Dates Rudy Boyer NP-C Primary Care Provider Active Dr. Jen Olivares MD Emergency Provider Active Leather Production Artisan Relationship Specialty Start Date End Date Cici Calderon [address] [place] [address] PCP - General 12/21/15 Leather Production Artisan Relationship Specialty Start Date End Date Cici Calderon [address] [place] [address] PCP - General 12/21/15 Leather Production Artisan Relationship Specialty Start Date End Date Cici Calderon [address] [place] [id number] PCP - General 12/21/15 Team Status: Inactive Member Role Status Dates Rudy Boyer NP-C Primary Care Provider Active Dr. Jen Olivares MD Attending Provider, Emergency Provider Active Team Status: Active Member Role Status Dates Rudy Boyer NP-C Primary Care Provider Active Dr. Radha SOLARES MD Attending Provider, Referring Provider Active Team Status: Active Member Role Status Dates Rudy Boyer NP-C Primary Care Provider Active Dr. Radha SOLARES MD Attending Provider Active Team Status: Inactive Member Role Status Dates Rudy Boyer WALLPAPER PRINTER HELPER-C Primary Care Provider Active Dr. Radha SOLARES MD Attending Provider Active Team Status: Inactive Member Role Status Dates Rudy Boyer WALLPAPER PRINTER HELPER-C Primary Care Provider Active Dr. Radha SOLARES MD Attending Provider, Referring Provider Active Leather Production Artisan Relationship Specialty Start Date End Date Cici Calderon [address] [place] [address] PCP - General 12/21/15 Leather Production Artisan Relationship Specialty Start Date End Date Rudy Boyer, APPLICATION DEVELOPMENT TEAM LEAD [address] [place], [place] [address] PCP - General Family Medicine 04/10/23 Leather Production Artisan Relationship Specialty Start Date End Date Rudy Boyer, APPLICATION DEVELOPMENT TEAM LEAD [address] [place], [place] [id number] PCP - General Family Medicine 04/10/23 Team Status: Active Member Role Status Dates Rudy Boyer WALLPAPER PRINTER HELPER-C Primary Care Provider Active Dr. Marcos Hoffman , DO Emergency Provider Active Dr. Anuja Noel , DO Admit Provider, Other Provid er Active Dr. Tamiko Quigley , DO Attending Provider Active Leather Production Artisan Relationship Specialty Start Date End Date Rudy Boyer, APPLICATION DEVELOPMENT TEAM LEAD [address] [place], [place] [id number] PCP - General Family Medicine 04/10/23 Team Status: Active Member Role Status Dates Rudy Boyer WALLPAPER PRINTER HELPER-C Primary Care Provider Active Dr. Marcos Hoffman , DO Emergency Provider Active Dr. Anuja Noel DO Admit Provider , Attending Provider, Other Provider Active Dr. Tamiko Quigley , DO Other Provider Active Team Status: Active Member Role Status Dates Rudy Boyer WALLPAPER PRINTER HELPER-C Primary Care Provider Active Dr. Marcos Andes , DO Emergency Provider Active Dr. Anuja Noel , DO Admit Provider, Other Provid er Active Dr. Tamiko Quigley , DO Attending Provider, Other Provide r Active Team Status: Active Member Role Status Dates Rudyjody Boyer , WALLPAPER PRINTER HELPER-C Primary Care Provider Active Dr. Marcos Hoffman , DO Emergency Provider Active Dr. Anuja Noel , DO Admit Provider, Other Provid er Active Dr. Tamiko Quigley , DO Other Provider Active Dr. Christopher Haung , DO Attending Provider, Other Prov ider Active Team Status: Active Member Role Status Dates Rudyjody Boyer , WALLPAPER PRINTER HELPER-C Primary Care Provider Active Dr. Marcos Hoffman , DO Emergency Provider Active Dr. Anuja Noel , DO Admit Provider, Other Provid er Active Dr. Christopher Huang , DO Other Provider Active Dr. Tamiko Quigley , DO Other Provider Active Dr. Anuja Murcia MD Attending Provider, Other Provid er Active Dr. Miguel Chapman , DO Other Provider Active Team Status: Active Member Role Status Dates Rudyjody Boyer , WALLPAPER PRINTER HELPER-C Primary Care Provider Active Dr. Christopher Huang , DO Attending Provider Active Team Status: Active Member Role Status Dates Rudyjody Boyer , WALLPAPER PRINTER HELPER-C Primary Care Provider Active Dr. Marcos Hoffman , DO Emergency Provider Active Dr. Anuja Noel , DO Admit Provider, Other Provid er Active Dr. Tamiko Quigley , DO Other Provider Active Dr. Anuja Murcia MD Other Provider Active Dr. Miguel Chapman , DO Other Provider Active Dr. Christopher Huang , DO Attending Provider, Other Prov ider Active Team Status: Active Member Role Status Dates Rudyjody Boyer , WALLPAPER PRINTER HELPER-C Primary Care Provider Active Dr. Marcos Hoffman , DO Emergency Provider Active Dr. Anuja Noel , DO Admit Provider, Other Provid er Active Dr. Tamiko Quigley , DO Other Provider Active Dr. Anuja Murcia MD Attending Provider, Other Provid er Active Dr. Miguel Chapman , DO Other Provider Active Dr. Christopher Huang , DO Other Provider Active Team Status: Inactive Member Role Status Dates Rudy Sharla , WALLPAPER PRINTER HELPER-C Primary Care Provider Active Dr. Marcos Hoffman , DO Emergency Provider Active Dr. Anuja Noel , DO Admit Provider, Other Provid er Active Dr. Tamiko Quigley , DO Other Provider Active Dr. Anuja Murcia MD Attending Provider Active Dr. iMguel Chapman , DO Other Provider Active Dr. Christopher Huang , DO Other Provider Active Leather Production Artisan Relationship Specialty Start Date End Date Rudy Boyer FNP [address] [place] [address] PCP - General Family Medicine 04/10/23 Leather Production Artisan Relationship Specialty Start Date End Date Rudy Boyer FNP [address] [place] [address] PCP - General Family Medicine 04/10/23 Leather Production Artisan Relationship Specialty Start Date End Date Cici Calderon [address] [place] [phone] PCP - General 12/21/15 04/09/23 Rudy Boyer FNP [address] [place] [address] PCP - General Family Medicine 04/10/23 Leather Production Artisan Relationship Specialty Start Date End Date Rudy Boyer FNP [address] [place], [place] [id number] PCP - General Family Medicine 04/10/23 Team Status: Active Member Role Status Dates Rudy Boyer , WALLPAPER PRINTER HELPER-C Primary Care Provider Active Dr. Marcos Hoffman , DO Emergency Provider Active Dr. Anuja Noel , DO Admit Provider, Other Provid er Active Dr. Tamiko Quigley , DO Other Provider Active Dr. Christopher Huang , DO Attending Provider, Other Prov ider Active Dr. Anuja Murcia MD Referring Provider Active Team Status: Active Member Role Status Dates Rudy Boyer WALLPAPER PRINTER HELPER-C Primary Care Provider Active Dr. Christopher Huang , DO Attending Provider Active Dr. Anuja Murcia MD Referring Provider Active Team Status: Active Member Role Status Dates Rudy Boyer , WALLPAPER PRINTER HELPER-C Primary Care Provider Active Dr. Marcos Hoffman , DO Emergency Provider Active Dr. Anuja Noel , DO Admit Provider, Other Provid er Active Dr. Tamiko Quigley , DO Other Provider Active Dr. Anuja Murcia MD Referring Provider, Other Provid er Active Dr. Miguel Chapman , DO Other Provider Active Dr. Christopher Huang , DO Attending Provider, Other Prov ider Active Team Status: Inactive Member Role Status Dates Rudyjody Boyer , WALLPAPER PRINTER HELPER-C Primary Care Provider Active Dr. Marcos Hoffman , DO Emergency Provider Active Dr. Anuja Noel , DO Admit Provider, Other Provid er Active Dr. Tamiko Quigley , DO Other Provider Active Dr. Miguel Chapman , DO Other Provider Active Dr. Christopher Huang , DO Other Provider Active Dr. Anuja Murcia MD Attending Provider Active Team Status: Inactive Member Role Status Dates Rudyjody Boyer , WALLPAPER PRINTER HELPER-C Primary Care Provider Active Dr. Norman Otoole MD Attending Provider, Referring Provider Active Team Status: Active Member Role Status Dates Rudy Sharla , WALLPAPER PRINTER HELPER-C Primary Care Provider Active Team Status: Inactive Member Role Status Dates Rudy Sharla , WALLPAPER PRINTER HELPER-C Primary Care Provider Active Start: December 30, 2023 End: January 05, 2024 Dr. Yifan Zepeda , Emergency Provider Active Start: December 30, 2023 End: January 05, 2024 Dr. Kanwal Aguilar MD Admit Provider Active St art: December 30, 2023 End: January 05, 2024 Dr. Kanwal Aguilar MD Other Provider Active St art: December 30, 2023 End: January 05, 2024 Dr. Zahra Palacio MD Attending Provider Active Start: December 30, 2023 End: January 05, 2024 Dr. Tiffanie Jimenez MD Other Provider Active Start: December 30, 2023 End: January 05, 2024 Team Status: Active Member Role Status Dates Rudy Sharla , WALLPAPER PRINTER HELPER-C Primary Care Provider Active Start: December 31, 2023 Dr. Ethan Hayes MD Attending Provider Active S tart: December 31, 2023 Team Status: Active Member Role Status Dates Rudy Sharla , WALLPAPER PRINTER HELPER-C Primary Care Provider Active Start: December 31, 2023 Dr. Yifan Zepeda , Emergency Provider Active Start: December 31, 2023 Dr. Kanwal Aguilar MD Admit Provider Active St art: December 31, 2023 Dr. Kanwal Aguilar MD Other Provider Active St art: December 31, 2023 Dr. Tiffanie Jimenez MD Other Provider Active Start: December 31, 2023 Dr. Alden Finn MD Other Provider Active Start: December 31, 2023 Dr. Varghese Atkinson MD Other Provider Active Start: December 31, 2023 Dr. Filemon Coffman MD Other Provider Active Star t: December 31, 2023 Dr. Atul Quezada , Other Provider Active Start : December 31, 2023 Dr. Anuja Marcos MD Other Provider Active Sta rt: December 31, 2023 Dr. Dejuan Mendez MD Other Provider Active St art: December 31, 2023 Dr. Leonard Berumen MD Other Provider Active S tart: December 31, 2023 Dr. Prudence Florentino MD Other Provider Active Start: December 31, 2023 Dr. Harinder Delgado MD Other Provider Active Start : December 31, 2023 Dr. Yaw Clarke MD Other Provider Active Start: December 31, 2023 Dr. Zoila Pathak MD Other Provider Active Star t: December 31, 2023 Dr. Susie Fontenot MD Other Provider Active Sta rt: December 31, 2023 Dr. Sy Palm MD Other Provider Active Star t: December 31, 2023 Dr. Dylon Foley MD Other Provider Active St art: December 31, 2023 Dr. Raji Akers MD Other Provider Active Star t: December 31, 2023 Dr. Saad Hoang , Other Provider Active St art: December 31, 2023 Dr. Cornelius Birch MD Other Provider Active Start: December 31, 2023 Dr. Landon Nelson DO Other Provider Active Start: December 31, 2023 Dr. Jean Arana MD Other Provider Active Star t: December 31, 2023 Dr. Gautam Robles MD Other Provider Active Sta rt: December 31, 2023 Dr. Zahra Palacio MD Attending Provider Active Start: December 31, 2023 Dr. Zahra Palacio MD Other Provider Active Star t: December 31, 2023 Team Status: Active Member Role Status Dates Rudy Boyer NP-Madelyn Primary Care Provider Active Start: December 31, 2023 Dr. Yifan Zepeda DO Emergency Provider Active Start: December 31, 2023 Dr. Kanwal Aguilar MD Admit Provider Active St art: December 31, 2023 Dr. Kanwal Aguilar MD Referring Provider Active Start: December 31, 2023 Dr. Kanwal Aguilar MD Other Provider Active St art: December 31, 2023 Dr. Tiffanie Jimenez MD Other Provider Active Start: December 31, 2023 Dr. Alden Finn MD Other Provider Active Start: December 31, 2023 Dr. Varghese Atkinson MD Other Provider Active Start: December 31, 2023 Dr. Filemon Coffman MD Other Provider Active Star t: December 31, 2023 Dr. Atul Quezada DO Attending Provider Active S tart: December 31, 2023 Dr. Atul Quezada DO Other Provider Active Start : December 31, 2023 Dr. Anuja Marcos MD Other Provider Active Sta rt: December 31, 2023 Dr. Dejuan Mendez MD Other Provider Active St art: December 31, 2023 Dr. Leonard Berumen MD Other Provider Active S tart: December 31, 2023 Dr. Prudence Florentino MD Other Provider Active Start: December 31, 2023 Dr. Harinder Delgado MD Other Provider Active Start : December 31, 2023 Dr. Yaw Clarke MD Other Provider Active Start: December 31, 2023 Dr. Zoila Pathak MD Other Provider Active Star t: December 31, 2023 Dr. Susie Fontenot MD Other Provider Active Sta rt: December 31, 2023 Dr. Sy Palm MD Other Provider Active Star t: December 31, 2023 Dr. Dylon Foley MD Other Provider Active St art: December 31, 2023 Dr. Raji Akers MD Other Provider Active Star t: December 31, 2023 Dr. Saad Hoang DO Other Provider Active St art: December 31, 2023 Dr. Cornelius Birch MD Other Provider Active Start: December 31, 2023 Dr. Landon Nelson DO Other Provider Active Start: December 31, 2023 Dr. Jean Arana MD Other Provider Active Star t: December 31, 2023 Dr. Gautam Robles MD Other Provider Active Sta rt: December 31, 2023 Dr. Zahra Palacio MD Other Provider Active Star t: December 31, 2023 Team Status: Active Member Role Status Dates Rudy Boyer WALLPAPER PRINTER HELPER-C Primary Care Provider Active Start: December 31, 2023 Dr. Yifan Zepeda DO Emergency Provider Active Start: December 31, 2023 Dr. Kanwal Aguilar MD Admit Provider Active St art: December 31, 2023 Dr. Kanwal Aguilar MD Other Provider Active St art: December 31, 2023 Dr. Zahra Palacio MD Referring Provider Active Start: December 31, 2023 Dr. Zahra Palacio MD Other Provider Active Star t: December 31, 2023 Dr. Tiffanie Jimenez MD Other Provider Active Start: December 31, 2023 Dr. Christopher Huang DO Attending Provider Active Start: December 31, 2023 Team Status: Active Member Role Status Dates Rudy Boyer NP-C Primary Care Provider Active Start: January 01, 2024 Dr. Yifan Zepeda DO Emergency Provider Active Start: January 01, 2024 Dr. Kanwal Aguilar MD Admit Provider Active St art: January 01, 2024 Dr. Kanwal Aguilar MD Other Provider Active St art: January 01, 2024 Dr. Tiffanie Jimenez MD Other Provider Active Start: January 01, 2024 Dr. Alden Finn MD Other Provider Active Start: January 01, 2024 Dr. Varghese Atkinson MD Other Provider Active Start: January 01, 2024 Dr. Filemon Coffman MD Other Provider Active Star t: January 01, 2024 Dr. Atul Quezada DO Other Provider Active Start : January 01, 2024 Dr. Anuja Marcos MD Other Provider Active Sta rt: January 01, 2024 Dr. Dejuan Mendez MD Other Provider Active St art: January 01, 2024 Dr. Leonard Berumen MD Other Provider Active S tart: January 01, 2024 Dr. Prudence Florentino MD Other Provider Active Start: January 01, 2024 Dr. Harinder Delgado MD Other Provider Active Start : January 01, 2024 Dr. Yaw Clarke MD Other Provider Active Start: January 01, 2024 Dr. Zoila Pathak MD Other Provider Active Star t: January 01, 2024 Dr. Susie Fontenot MD Other Provider Active Sta rt: January 01, 2024 Dr. Sy Palm MD Other Provider Active Star t: January 01, 2024 Dr. Dylon Foley MD Other Provider Active St art: January 01, 2024 Dr. Raji Akers MD Other Provider Active Star t: January 01, 2024 Dr. Saad Hoang DO Other Provider Active St art: January 01, 2024 Dr. Cornelius Birch MD Other Provider Active Start: January 01, 2024 Dr. Landon Nelson DO Other Provider Active Start: January 01, 2024 Dr. Jean Arana MD Other Provider Active Star t: January 01, 2024 Dr. Gautam Robles MD Other Provider Active Sta rt: January 01, 2024 Dr. Zahra Palacio MD Attending Provider Active Start: January 01, 2024 Dr. Zahra Palacio MD Other Provider Active Star t: January 01, 2024 Team Status: Active Member Role Status Dates Rudy Boyer NP-C Primary Care Provider Active Start: January 01, 2024 Dr. Yifan Zepeda DO Emergency Provider Active Start: January 01, 2024 Dr. Kanwal Aguilar MD Admit Provider Active St art: January 01, 2024 Dr. Kanwal Aguilar MD Other Provider Active St art: January 01, 2024 Dr. Tiffanie Jimenez MD Other Provider Active Start: January 01, 2024 Dr. Alden Finn MD Other Provider Active Start: January 01, 2024 Dr. Varghese Atkinson MD Other Provider Active Start: January 01, 2024 Dr. Filemon Coffman MD Other Provider Active Star t: January 01, 2024 Dr. Atul Quezada DO Attending Provider Active S tart: January 01, 2024 Dr. Atul Quezada , Other Provider Active Start : January 01, 2024 Dr. Anuja Marcos MD Other Provider Active Sta rt: January 01, 2024 Dr. Dejuan Mendez MD Other Provider Active St art: January 01, 2024 Dr. Leonard Berumen MD Other Provider Active S tart: January 01, 2024 Dr. Prudence Florentino MD Other Provider Active Start: January 01, 2024 Dr. Harinder Delgado MD Other Provider Active Start : January 01, 2024 Dr. Yaw Clarke MD Other Provider Active Start: January 01, 2024 Dr. Zoila Pathak MD Other Provider Active Star t: January 01, 2024 Dr. Susie Fontenot MD Other Provider Active Sta rt: January 01, 2024 Dr. Sy Palm MD Other Provider Active Star t: January 01, 2024 Dr. Dylon Foley MD Other Provider Active St art: January 01, 2024 Dr. Raji Akers MD Other Provider Active Star t: January 01, 2024 Dr. Saad Hoang DO Other Provider Active St art: January 01, 2024 Dr. Cornelius Birch MD Other Provider Active Start: January 01, 2024 Dr. Landon Nelson DO Other Provider Active Start: January 01, 2024 Dr. Jean Arana MD Other Provider Active Star t: January 01, 2024 Dr. Gautam Robles MD Other Provider Active Sta rt: January 01, 2024 Dr. Zahra Palacio MD Referring Provider Active Start: January 01, 2024 Dr. Zahra Palacio MD Other Provider Active Star t: January 01, 2024 Team Status: Active Member Role Status Dates Rudy Boyer NP-Madelyn Primary Care Provider Active Start: January 02, 2024 Dr. Yifan Zepeda DO Emergency Provider Active Start: January 02, 2024 Dr. Kanwal Aguilar MD Admit Provider Active St art: January 02, 2024 Dr. Kanwal Aguilar MD Other Provider Active St art: January 02, 2024 Dr. Zahra Palacio MD Attending Provider Active Start: January 02, 2024 Dr. Zahra Palacio MD Other Provider Active Star t: January 02, 2024 Dr. Tiffanie Jimenez MD Other Provider Active Start: January 02, 2024 Team Status: Active Member Role Status Dates Rudy Boyer NP-C Primary Care Provider Active Start: January 02, 2024 Dr. Yifan Zepeda DO Emergency Provider Active Start: January 02, 2024 Dr. Kanwal Aguilar MD Admit Provider Active St art: January 02, 2024 Dr. Kanwal Aguilar MD Other Provider Active St art: January 02, 2024 Dr. Zahra Palacio MD Referring Provider Active Start: January 02, 2024 Dr. Zahra Palacio MD Other Provider Active Star t: January 02, 2024 Dr. Tiffanie Jimenez MD Other Provider Active Start: January 02, 2024 Dr. Alden Finn MD Other Provider Active Start: January 02, 2024 Dr. Varghese Atkinson MD Other Provider Active Start: January 02, 2024 Dr. Filemon Coffman MD Other Provider Active Star t: January 02, 2024 Dr. Atul Quezada DO Attending Provider Active S tart: January 02, 2024 Dr. Atul Quezada DO Other Provider Active Start : January 02, 2024 Dr. Anuja Marcos MD Other Provider Active Sta rt: January 02, 2024 Dr. Dejuan Mendez MD Other Provider Active St art: January 02, 2024 Dr. Leonard Berumen MD Other Provider Active S tart: January 02, 2024 Dr. Prudence Florentino MD Other Provider Active Start: January 02, 2024 Dr. Harinder Delgado MD Other Provider Active Start : January 02, 2024 Dr. Yaw Clarke MD Other Provider Active Start: January 02, 2024 Dr. Zoila Pathak MD Other Provider Active Star t: January 02, 2024 Dr. Susie Fontenot MD Other Provider Active Sta rt: January 02, 2024 Dr. Sy Palm MD Other Provider Active Star t: January 02, 2024 Dr. Dylon Foley MD Other Provider Active St art: January 02, 2024 Dr. Raji Akers MD Other Provider Active Star t: January 02, 2024 Dr. Saad Hoang DO Other Provider Active St art: January 02, 2024 Dr. Cornelius Birch MD Other Provider Active Start: January 02, 2024 Dr. Landon Nelson DO Other Provider Active Start: January 02, 2024 Dr. Jean Arana MD Other Provider Active Star t: January 02, 2024 Dr. Gautam Robles MD Other Provider Active Sta rt: January 02, 2024 Team Status: Active Member Role Status Dates Rudyjody Boyer , WALLPAPER PRINTER HELPER-C Primary Care Provider Active Start: January 03, 2024 Dr. Yifan Zepeda DO Emergency Provider Active Start: January 03, 2024 Dr. Kanwal Aguilar MD Admit Provider Active St art: January 03, 2024 Dr. Kanwal Aguilar MD Other Provider Active St art: January 03, 2024 Dr. Zahra Palacio MD Attending Provider Active Start: January 03, 2024 Dr. Zahra Palacio MD Other Provider Active Star t: January 03, 2024 Dr. Tiffanie Jimenez MD Other Provider Active Start: January 03, 2024 Team Status: Active Member Role Status Dates Rudyjody Boyer , WALLPAPER PRINTER HELPER-C Primary Care Provider Active Start: January 04, 2024 End: January 04, 2024 Dr. Martina Rendon MD Attending Provider Active Start: January 04, 2024 End: January 04, 2024 Dr. Paddy Walker MD Referring Provider Active St art: January 04, 2024 End: January 04, 2024 Team Status: Active Member Role Status Dates Rudy Boyer , WALLPAPER PRINTER HELPER-C Primary Care Provider Active Start: January 04, 2024 Dr. Yifan Zepeda DO Emergency Provider Active Start: January 04, 2024 Dr. Kanwal Aguilar MD Admit Provider Active St art: January 04, 2024 Dr. Kanwal Aguilar MD Other Provider Active St art: January 04, 2024 Dr. Zahra Palacio MD Attending Provider Active Start: January 04, 2024 Dr. Zahra Palacio MD Other Provider Active Star t: January 04, 2024 Dr. Tiffanie Jimenez MD Other Provider Active Start: January 04, 2024 Team Status: Active Member Role Status Dates Rudy Boyer , WALLPAPER PRINTER HELPER-C Primary Care Provider Active Start: January 04, 2024 Dr. Christopher Huang DO Attending Provider Active Start: January 04, 2024 Dr. Zahra Palacio MD Referring Provider Active Start: January 04, 2024 Team Status: Active Member Role Status Dates Rudy Boyer , WALLPAPER PRINTER HELPER-C Primary Care Provider Active Start: January 05, 2024 Dr. Yifan Zepeda DO Emergency Provider Active Start: January 05, 2024 Dr. Kanwal Aguilar MD Admit Provider Active St art: January 05, 2024 Dr. Kanwal Aguilar MD Other Provider Active St art: January 05, 2024 Dr. Zahra Palacio MD Attending Provider Active Start: January 05, 2024 Dr. Zahra Palacio MD Other Provider Active Star t: January 05, 2024 Dr. Tiffanie Jimenez MD Other Provider Active Start: January 05, 2024 Team Status: Inactive Member Role Status Dates Rudy Boyer WALLPAPER PRINTER HELPER-C Primary Care Provider Active Start: January 25, 2024 End: January 25, 2024 Rudy Boyer WALLPAPER PRINTER HELPER-C Referring Provider Active St art: January 25, 2024 End: January 25, 2024 Dr. Christopher Huang DO Attending Provider Active Start: January 25, 2024 End: January 25, 2024 Team Status: Inactive Member Role Status Dates Rudy Boyer WALLPAPER PRINTER HELPER-C Primary Care Provider Active Start: February 13, 2024 End: February 17, 2024 Dr. Nico Arce MD Emergency Provider Active Start: February 13, 2024 End: February 17, 2024 Dr. Tamiko Quigley DO Admit Provider Active Start : February 13, 2024 End: February 17, 2024 Dr. Tamiko Quigley DO Other Provider Active Start : February 13, 2024 End: February 17, 2024 Dr. Jordana Hopkins MD Attending Provider Active Start: February 13, 2024 End: February 17, 2024 Team Status: Active Member Role Status Dates Rudy Boyer WALLPAPER PRINTER HELPER-C Primary Care Provider Active Start: February 13, 2024 Dr. Nico Arce MD Emergency Provider Active Start: February 13, 2024 Dr. Tamiko Quigley DO Admit Provider Active Start : February 13, 2024 Dr. Tamiko Quigley DO Attending Provider Active S tart: February 13, 2024 Dr. Tamiko Quigley DO Other Provider Active Start : February 13, 2024 Team Status: Active Member Role Status Dates ORESTES Cano Primary Care Provider Active Start: February 14, 2024 Dr. Nico Arce MD Emergency Provider Active Start: February 14, 2024 Dr. Tamiko Quigley DO Admit Provider Active Start : February 14, 2024 Dr. Tamiko Quigley DO Other Provider Active Start : February 14, 2024 Dr. Alden Finn MD Other Provider Active Start: February 14, 2024 Dr. Varghese Atkinson MD Other Provider Active Start: February 14, 2024 Dr. Filemon Coffman MD Other Provider Active Star t: February 14, 2024 Dr. Atul Quezada DO Other Provider Active Start : February 14, 2024 Dr. Anjua Marcos MD Other Provider Active Sta rt: February 14, 2024 Dr. Dejuan Mendez MD Other Provider Active St art: February 14, 2024 Dr. Leonard Berumen MD Other Provider Active S tart: February 14, 2024 Dr. Prudence Florentino MD Other Provider Active Start: February 14, 2024 Dr. Harinder Delgado MD Other Provider Active Start : February 14, 2024 Dr. Yaw Clarke MD Other Provider Active Start: February 14, 2024 Dr. Marcos Aviles MD Other Provider Active Start : February 14, 2024 Dr. Zoila Pathak MD Other Provider Active Star t: February 14, 2024 Dr. Susie Fontenot MD Other Provider Active Sta rt: February 14, 2024 Dr. Sy Palm MD Other Provider Active Star t: February 14, 2024 Dr. Dylon Foley MD Other Provider Active St art: February 14, 2024 Dr. Raji Akers MD Other Provider Active Star t: February 14, 2024 Dr. Saad Hoang DO Other Provider Active St art: February 14, 2024 Dr. Cornelius Birch MD Other Provider Active Start: February 14, 2024 Dr. Landon Nelson DO Other Provider Active Start: February 14, 2024 Dr. Jean Arana MD Other Provider Active Star t: February 14, 2024 Dr. Gautam Robles MD Other Provider Active Sta rt: February 14, 2024 Dr. Jordana Hopkins MD Attending Provider Active Start: February 14, 2024 Team Status: Active Member Role Status Dates ORESTES Cano Primary Care Provider Active Start: February 14, 2024 Dr. Nico Arce MD Emergency Provider Active Start: February 14, 2024 Dr. Tamiko Quigley DO Admit Provider Active Start : February 14, 2024 Dr. Tamiko Quigley DO Other Provider Active Start : February 14, 2024 Dr. Alden Finn MD Other Provider Active Start: February 14, 2024 Dr. Varghese Atkinson MD Other Provider Active Start: February 14, 2024 Dr. Filemon Coffman MD Other Provider Active Star t: February 14, 2024 Dr. Atul Quezada DO Attending Provider Active S tart: February 14, 2024 Dr. Atul Quezada DO Other Provider Active Start : February 14, 2024 Dr. Anuja Marcos MD Other Provider Active Sta rt: February 14, 2024 Dr. Dejuan Mendez MD Other Provider Active St art: February 14, 2024 Dr. Leonard Berumen MD Other Provider Active S tart: February 14, 2024 Dr. Prudence Florentino MD Other Provider Active Start: February 14, 2024 Dr. Harinder Delgado MD Other Provider Active Start : February 14, 2024 Dr. Yaw Clarke MD Other Provider Active Start: February 14, 2024 Dr. Marcos Aviles MD Other Provider Active Start : February 14, 2024 Dr. Zoila Pathak MD Other Provider Active Star t: February 14, 2024 Dr. Susie Fontenot MD Other Provider Active Sta rt: February 14, 2024 Dr. Sy Palm MD Other Provider Active Star t: February 14, 2024 Dr. Dylon Foley MD Other Provider Active St art: February 14, 2024 Dr. Raji Akers MD Other Provider Active Star t: February 14, 2024 Dr. Saad Hoang DO Other Provider Active St art: February 14, 2024 Dr. Cornelius Birch MD Other Provider Active Start: February 14, 2024 Dr. Landon Nelson DO Other Provider Active Start: February 14, 2024 Dr. Jean Arana MD Other Provider Active Star t: February 14, 2024 Dr. Gautam Robles MD Other Provider Active Sta rt: February 14, 2024 Dr. Jordana Hopkins MD Referring Provider Active Start: February 14, 2024 Dr. Jordana Hopkins MD Other Provider Active St art: February 14, 2024 Team Status: Active Member Role Status Dates Rudy Boyer NP-C Primary Care Provider Active Start: February 15, 2024 Dr. Nico Arce MD Emergency Provider Active Start: February 15, 2024 Dr. Tamiko Quigley DO Admit Provider Active Start : February 15, 2024 Dr. Tamiko Quigley DO Other Provider Active Start : February 15, 2024 Dr. Jordana Hopkins MD Attending Provider Active Start: February 15, 2024 Dr. Jordana Hopkins MD Other Provider Active St art: February 15, 2024 Team Status: Active Member Role Status Dates Rudy Boyer WALLPAPER PRINTER HELPER-C Primary Care Provider Active Start: February 16, 2024 Dr. Nico Arce MD Emergency Provider Active Start: February 16, 2024 Dr. Tamiko Quigley DO Admit Provider Active Start : February 16, 2024 Dr. Tamiko Quigley DO Other Provider Active Start : February 16, 2024 Dr. Jordana Hopkins MD Attending Provider Active Start: February 16, 2024 Dr. Jordana Hopkins MD Other Provider Active St art: February 16, 2024 Team Status: Active Member Role Status Dates Rudy Boyer WALLPAPER PRINTER HELPER-C Primary Care Provider Active Start: February 17, 2024 Dr. Nico Arce MD Emergency Provider Active Start: February 17, 2024 Dr. Tamiko Quigley DO Admit Provider Active Start : February 17, 2024 Dr. Tamiko Quigley DO Other Provider Active Start : February 17, 2024 Dr. Jordana Hopkins MD Attending Provider Active Start: February 17, 2024 Dr. Jordana Hopkins MD Other Provider Active St art: February 17, 2024 Team Status: Active Member Role Status Dates Rudy Boyer WALLPAPER PRINTER HELPER-C Primary Care Provider Active Start: April 20, 2024 Dr. Joe Preston MD Emergency Provider Active S tart: April 20, 2024 Dr. Kanwal Aguilar MD Attending Provider Active Start: April 20, 2024 Team Status: Active Member Role Status Dates Rudy Boyer WALLPAPER PRINTER HELPER-C Primary Care Provider Active Start: April 20, 2024 Dr. Joe Preston MD Emergency Provider Active S tart: April 20, 2024 Dr. Kanwal Aguilar MD Admit Provider Active St art: April 20, 2024 Dr. Kanwal Aguilar MD Attending Provider Active Start: April 20, 2024 Team Status: Inactive Member Role Status Dates Rudy Boyer WALLPAPER PRINTER HELPER-C Primary Care Provider Active Start: April 20, 2024 End: April 24, 2024 Dr. Joe Preston MD Emergency Provider Active S tart: April 20, 2024 End: April 24, 2024 Dr. Kanwal Aguilar MD Admit Provider Active St art: April 20, 2024 End: April 24, 2024 Dr. Kanwal Aguilar MD Other Provider Active St art: April 20, 2024 End: April 24, 2024 Dr. John Short DO Attending Provider Active Start: April 20, 2024 End: April 24, 2024 Team Status: Active Member Role Status Dates Rudy Boyer WALLPAPER PRINTER HELPER-C Primary Care Provider Active Start: April 21, 2024 Dr. Joe Preston MD Emergency Provider Active S tart: April 21, 2024 Dr. Kanwal Aguilar MD Admit Provider Active St art: April 21, 2024 Dr. Kanwal Aguilar MD Other Provider Active St art: April 21, 2024 Dr. Alden Finn MD Other Provider Active Start: April 21, 2024 Dr. Varghese Atkinson MD Other Provider Active Start: April 21, 2024 Dr. Filemon Coffman MD Other Provider Active Star t: April 21, 2024 Dr. Atlu Quezada DO Attending Provider Active S tart: April 21, 2024 Dr. Atul Quezada DO Other Provider Active Start : April 21, 2024 Dr. Anuja Marcos MD Other Provider Active Sta rt: April 21, 2024 Dr. Dejuan Mendez MD Other Provider Active St art: April 21, 2024 Dr. Leonard Berumen MD Other Provider Active S tart: April 21, 2024 Dr. Prudence Florentino MD Other Provider Active Start: April 21, 2024 Dr. Harinder Delgado MD Other Provider Active Start : April 21, 2024 Dr. Yaw Clarke MD Other Provider Active Start: April 21, 2024 Dr. Marcos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 400 12 Units
And Insulin Lispro (Humalog) injection 0-12 UnitsJump to med 0-12 Units, SubCUTAneous, Nightly, First dose (after last modification) on Sun10/06/22 at 2100
If continuous tube feedings/TPN/NPO, give correction dose based on result, no reduction in dose. If eating or bolus tube feeding: Medium Dose Correction Algorithm Glucose: & nbsp; Dose: LESS than 139 No Insulin 140-199 2 Unit 200-249 4 Units 250-299 6 Units 300- 349 8 Units 350-400 10 Units Above 400 12 Units
Group 2: acetaminophen (Tylenol) tablet 650 mgJump to med 650 mg, Oral, Every 6 hours PRN, mild pain (1-3), fever, For temp greater than 100.4 F (38 C), Starting on Sun10/03/22 at 2128
Maximum dose of acetaminophen is 4000 mg from all sources in 24 hours.
Or acetaminophen (Tylenol) suppository 650 mgJump to med 650 mg, Rectal, Every 6 hours PRN, mild pain (1-3), fever, For temp greater than 100.4 F (38 C), Starting on Sun10/03/22 at 2128
Administer if oral route cannot be used. Maximum dose of acetaminophen is 4000 mg from all sources in 24 hours.
Group 3: ondansetron ODT (Zofran-ODT) disintegrating tablet 4 mgJump to med 4 mg, Oral, Every 8 hours PRN, nausea, vomiting, Starting on 8/22/23 at 2129
1st Line. If inadequate response within 60 minutes, proceed to next-line agent or contact provider if no further options ordered. Patient should allow tablet to dissolve on tongue. Do not remove from blister pack until just before administering.
Or ondansetron (Zofran) injection 4 mgJump to med 4 mg, IntraVENous, Every 6 hours PRN, nausea, vomiting, Starting on Sun10/03/22 at 2129
1st Line. Give IV if patient is unable to take orally. If inadequate response within 60 minutes, proceed to next-line agent or contact provider if no further options ordered.
Scheduled Medication Order 12/30/2022 12/31/2022 01/01/2023 acetaminophen (Tylenol) tablet 1,000 mg 1,000 mg, Oral, Every 8 hours, First dose on Toma 12/28/22 at 1600, Maximum dose of acetaminophen is 4000 mg from all sources in 24 hours. 0012 (Given - Provider: Veda Birch RN)0807 (Given - Provider: David Fletcher)1624 (Given - Provider: David Fletcher) 0026 (Given - Provider: Carrol Patel RN)0811 (Given - Provider: Lucie Florian)1640 (Given - Provider: Lucie Florian)2300 (Given - Provider: Carrol Patel RN) 1013 (Given - Provider: Denise Durham, [place])1658 (Given - Provider: Denise Durham, [place]) apixaban (Eliquis) tablet 2.5 mg 2.5 mg, Oral, 2 times daily, First dose on Sun01/01/23 at 2100, For 25 days, Anticoagulant 2003 (Given - Provider: Nelson Armas, [place]) atorvastatin (Lipitor) tablet 40 mg 40 mg, Oral, Daily, First dose on Sun12/26/22 at 2100, Substituted for simvastatin (Zocor). 2043 (Given - Provider: Carrol Patel RN) 2028 (Given - Provider: Carrol Patel, [place]) 2004 (Given - Provider: Nelson Armas, [place]) busPIRone (Buspar) tablet 15 mg 15 mg, Oral, 2 times daily, First dose on Sun12/26/22 at 1000 0806 (Given - Provider: David Fletcher)2044 (Given - Provider: Carrol Patel RN) 0810 (Given - Provider: Lucie Florian)202 (Given - Provider: Carrol Patel RN) 1013 (Given - Provider: Denise Durham, [place])2004 (Given - Provider: Nelson Armas RN) carvedilol (Coreg) tablet 3.125 mg 3.125 mg, Oral, 2 times daily with meals, First dose on Sun12/26/22 at 1000 0807 (Given - Provider: David Fletcher)1625 (Given - Provider: David Fletcher) 0811 (Given - Provider: Lucie Florian)1640 (Given - Provider: Lucie Florian) 1013 (Given - Provider: Denise Durham, [place])1743 (Given - Provider: Denise Durham, [place]) cholecalciferol (Vitamin D-3) tablet 2,000 Units 2,000 Units, Oral, Daily, First dose on Sun12/30/22 at 0900 0807 (Given - Provider: David Fletcher) 0811 (Given - Provider: Lucie Florian) 1013 (Given - Provider: Denise Durham, [place]) enoxaparin (Lovenox) syringe 40 mg (CANCELED) 40 mg, SubCUTAneous, Every 12 hours, First dose (after last modification) on Sun12/28/22 at 0900, Indication of Use: Prophylaxis-DVT/PE, Indications: Prophylaxis of Venous Thromboembolism 0807 (Given - Provider: David Fletcher)2043 (Given - Provider: Carrol Patel RN) 0812 (Given - Provider: Lucie Florian)2030 (Given - Provider: Carrol Patel, [place]) 1013 (Given - Provider: Denise Durham, [place]) FLUoxetine (PROzac) capsule 20 mg 20 mg, Oral, Daily, First dose on Sun12/29/22 at 1400 1350 (Given - Provider: David Fletcher) 1306 (Given - Provider: Lucie Florian) 1328 (Given - Provider: Denise Durham, [place]) FLUoxetine (PROzac) capsule 40 mg 40 mg, Oral, Every morning, First dose (after last modification) on 12/30/22 at 0900 0807 (Given - Provider: David Fletcher) 0811 (Given - Provider: Lucie Florian) 1013 (Given - Provider: Denise Durham RN) gabapentin (Neurontin) capsule 100 mg (CANCELED) 100 mg, Oral, 3 times daily, First dose on Toma 12/28/22 at 0900 0849 (Given - Provider: David Fletcher)1350 (Given - Provider: David Fletcher)2044 (Given - Provider: Carrol Patel, [place]) gabapentin (Neurontin) capsule 200 mg (CANCELED) 200 mg, Oral, 3 times daily, First dose (after last modification) on 12/31/22 at 0900 0811 (Given - Provider: Lucie Florian)1306 (Given - Provider: Lucie Florian)202 (Given - Provider: Carrol Patel, [place]) 1013 (Given - Provider: Denise Durham RN)1328 (Given - Provider: Denise Durham RN) gabapentin (Neurontin) capsule 300 mg 300 mg, Oral, 3 times daily, First dose on 01/01/23 at 1400 1400 (Not Given - Provider: Denise Durham RN - Reason: Other - Comment: patient just recieved 200mg gabapentin. will increase dose next administration)200 5 (Given - Provider: Nelson Armas RN) Insulin Lispro (Humalog) injection 0-12 Units(Linked Group 1) 0-12 Units, SubCUTAneous, 3 times daily with meals, First dose on 12/24/22 at 0800, Medium Dose Correction Algorithm Glucose: Dose: LESS than 139 No Insulin 140-199 2 Unit 200-249 4 Units 250-299 6 Units 300-349 8 Units 350-400 10 Units Above 400 12 Units 0800 (Not Given - Provider: Jessenia Brwon RN - Reason: Order parameters not met)1200 (Not Given - Provider: Jessenia Brown RN - Reason: Order parameters not met)1728 (Given - Provider: David Fletcher) 0817 (Not Given - Provider: Lucie Florian - Reason: Contraindicated - Comment: blood sugar 120)1208 (Given - Provider: Lucie Florian)1641 (Not Given - Provider: Lucie Florian - Reason: Contraindicated - Comment: blood sugar 110) 0800 (Not Given - Provider: Denise Durham RN - Reason: Order parameters not met - Comment: not eating)1335 (Given - Provider: Denise Durham RN)1659 (Given - Provider: Denise Durham, RN - Comment: 213) Insulin Lispro (Humalog) injection 0-12 Units(Linked Group 1) 0-12 Units, SubCUTAneous, Nightly, First dose on Sun12/23/22 at 2245, If continuous tube feedings/TPN/NPO, give correction dose based on result, no reduction in dose. If eating or bolus tube feeding: Medium Dose Correction Algorithm Glucose: Dose: LESS than 139 No Insulin 140-199 2 Unit 200-249 4 Units 250-299 6 Units 300-349 8 Units 350-400 10 Units Above 400 12 Units 204 (Given - Provider: Carrol Patel RN) 2028 (Given - Provider: Carrol Patel RN) 2017 (Given - Provider: Nelson Armas, [place]) Melatonin sublingual liquid 0.3 mg 0.3 mg, SubLINGual, Nightly, First dose on Sun12/26/22 at 2100 204 (Given - Provider: Carrol Patel RN) 2028 (Given - Provider: Carrol Patel RN) 2013 (Given - Provider: Nelson Armas, [place]) methocarbamol (Robaxin) tablet 500 mg 500 mg, Oral, Every 6 hours, First dose (after last modification) on Sun12/29/22 at 1200 0012 (Given - Provider: Veda Birch, [place])0553 (Given - Provider: Veda Birch RN)1141 (Given - Provider: David Fletcher)1815 (Given - Provider: David Fletcher) 0027 (Given - Provider: Carrol Patel RN)0608 (Given - Provider: Carrol Patel RN)1103 (Given - Provider: Lucie Florian)1644 (Given - Provider: Lucie Florian)1800 (Canceled Entry - Provider: Lucie Florian) 0000 (Given - Provider: Carrol Patel RN)0513 (Given - Provider: Carrol Patel RN)1231 (Given - Provider: Denise Durham RN)1743 (Given - Provider: Denise Durham RN) Non-Formulary Medication 1 tablet, Oral, Daily, First dose on 01/01/23 at 1345, Drug Name: Roc, Form: tablet, Length of Therapy: Indefinite, How soon needed? (normally 72 hrs needed to procure): 0-24 hrs, Reason for Non-Formulary: Patient request 1345 (Not Given - Provider: Denise Durham RN - Reason: Patient/family refused) polyethylene glycol (PEG) 3350 (Miralax) packet 17 g 17 g, Oral, Daily, First dose on 12/24/22 at 0900, Bowel Regimen - for prevention of constipation. 0807 (Given - Provider: David Fletcher) 0812 (Given - Provider: Lucie Florian) 0900 (Not Given - Provider: Denise Durham RN - Reason: Other - Comment: held per tawanna gamez NP pt having multiple loose BMs yesterday) QUEtiapine (SEROquel) tablet 12.5 mg 12.5 mg, Oral, Nightly, First dose (after last modification) on Sun12/29/22 at 2100 2043 (Given - Provider: Carrol Patel RN) 2028 (Given - Provider: Carrol Patel RN) 2005 (Given - Provider: Nelson Armas RN) sennosides (Senokot) tablet 17.2 mg 17.2 mg (2 tablet), Oral, Nightly, First dose on 12/23/22 at 2245, Bowel Regimen - for prevention of constipation., , On hold since 12/31/2022 at 1910 until manually unheld 2043 (Given - Provider: Carrol Patel RN) 191 (Held by provider - Provider: Kristal Mak MD - Reason: Other)2099 (Dose Auto Held - Provider: Kristal Mak MD) 2099 (Dose Auto Held - Provider: Kristal Mka MD)235 (Unheld by provider - Provider: Automatic Discharge Provider) PRN Medication Order 12/30/2022 12/31/202201/01/2023 dextrose 5 % infusion 100 mL/hr, IntraVENous, PRN, Blood sugar less than 70mg/dL, Starting on Sun12/26/22 at 2233, Start infusion following administration of dextrose 50% or glucagon. dextrose 50 % solution 12.5 g 12.5 g, IntraVENous, PRN, low blood sugar, Blood glucose less than 70 mg/dL and patient NOT ALERT or NPO., Starting on Sun12/26/22 at 2233, If patient does not respond within 5 minutes, repeat dose x1. Start D5W at 100 mL/hour until ordering provider can be reached. Repeat blood glucose in 15 minutes. If blood glucose is less than 70 mg/dL, repeat treatment and recheck blood glucose in 15 minutes x2. If using Glucostabilizer, dose as instructed per system. glucagon (human recombinant) injection 1 mg 1 mg, IntraMUSCular, PRN, low blood sugar, Blood glucose less than 70 mg/dL and patient NOT ALERT or NPO and does not have IV access., Starting on Sun12/26/22 at 223, After administration, attempt intravenous access and start D5W at 100 mL/hr. Repeat blood glucose in 15 minutes x2 and notify provider. glucose oral gel 15 g 15 g, Oral, As needed, low blood sugar, Starting on Sun12/26/22 at 2233, If blood glucose less than 50 mg/dL and patient ALERT and NOT NPO, give 2 tubes glucose gel. If blood glucose less than 70 mg/dL and patient ALERT and NOT NPO, give 1 tube glucose gel. Repeat blood glucose in 15 minutes. If blood glucose is less than 70 mg/dL, repeat treatment and recheck blood glucose in 15 minutes x2 and notify provider. hydrALAZINE (Apresoline) injection 10 mg 10 mg, IntraVENous, Every 4 hours PRN, high blood pressure, Starting on Sun12/23/22 at 2238, Second line: for SBP > 160 ipratropium-albuterol (Duo-Neb) 0.5-2.5 mg/3 mL nebulizer solution 3 mL 3 mL, Nebulization, 3 times daily PRN, wheezing, Starting on Sun12/30/22 at 1515 labetalol (Normodyne,Trandate) injection 20 mg 20 mg, IntraVENous, Every 2 hour PRN, high blood pressure, Starting on 12/25/22 at 2315, First line: for SBP > 160, hold for HR < 60 ondansetron (Zofran) injection 4 mg(Linked Group 2) 4 mg, IntraVENous, Every 6 hours PRN, nausea, vomiting, Starting on 12/23/22 at 2236, 1st Line. Give IV if patient is unable to take orally. If inadequate response within 60 minutes, proceed to next-line agent or contact provider if no further options ordered. ondansetron ODT (Zofran-ODT) disintegrating tablet 4 mg(Linked Group 2) 4 mg, Oral, Every 8 hours PRN, nausea, vomiting, Starting on 12/23/22 at 2236, 1st Line. If inadequate response within 60 minutes, proceed to next-line agent or contact provider if no further options ordered. Patient should allow tablet to dissolve on tongue. Do not remove from blister pack until just before administering. oxyCODONE (Roxicodone) immediate release tablet 2.5 mg(Linked Group 3) 2.5 mg, Oral, Every 4 hours PRN, moderate pain (4-6), Starting on Sun12/26/22 at 1147, First line, before IV meds 1506 (See Alternative - Provider: David Fletcher) 0637 (See Alternative - Provider: Carrol Patel, [place])2011 (See Alternative - Provider: Nelson Armas, [place]) oxyCODONE (Roxicodone) immediate release tablet 5 mg(Linked Group 3) 5 mg, Oral, Every 4 hours PRN, severe pain (7-10), Starting on Sun12/26/22 at 1147, First line, before IV meds 1506 (Given - Provider: David Fletcher) 0637 (Given - Provider: Carrol Patel, [place])2011 (Given - Provider: Nelson Armas, [place]) Linked Groups Order Group 1: Insulin Lispro (Humalog) injection 0-12 UnitsJump to med 0-12 Units, SubCUTAneous, 3 times daily with meals, First dose on Sun12/24/22 at 0800, Medium Dose Correction Algorithm Glucose: Dose: LESS than 139 No Insulin 140-199 2 Unit 200-249 4 Units 250-299 6 Units 300-349 8 Units 350-400 10 Units Above 400 12 Units And Insulin Lispro (Humalog) injection 0-12 UnitsJump to med 0-12 Units, SubCUTAneous, Nightly, First dose on 12/23/22 at 2245, If continuous tube feedings/TPN/NPO, give correction dose based on result, no reduction in dose. If eating or bolus tube feeding: Medium Dose Correction Algorithm Glucose: Dose: LESS than 139 No Insulin 140-199 2 Unit 200-249 4 Units 250-299 6 Units 300-349 8 Units 350-400 10 Units Above 400 12 Units Group 2: ondansetron ODT (Zofran-ODT) disintegrating tablet 4 mgJump to med 4 mg, Oral, Every 8 hours PRN, nausea, vomiting, Starting on Sun12/23/22 at 2236, 1st Line. If inadequate response within 60 minutes, proceed to next-line agent or contact provider if no further options ordered. Patient should allow tablet to dissolve on tongue. Do not remove from blister pack until just before administering. Or ondansetron (Zofran) injection 4 mgJump to med 4 mg, IntraVENous, Every 6 hours PRN, nausea, vomiting, Starting on 12/23/22 at 2236, 1st Line. Give IV if patient is unable to take orally. If inadequate response within 60 minutes, proceed to next-line agent or contact provider if no further options ordered. Group 3: oxyCODONE (Roxicodone) immediate release tablet 2.5 mgJump to med 2.5 mg, Oral, Every 4 hours PRN, moderate pain (4-6), Starting on Sun12/26/22 at 1147, First line, before IV meds Or oxyCODONE (Roxicodone) immediate release tablet 5 mgJump to med 5 mg, Oral, Every 4 hours PRN, severe pain (7-10), Starting on Sun12/26/22 at 1147, First line, before IV meds FOR RECORDS PERTAINING TO PATIENTS WHO ARE OR HAVE BEEN ENROLLED IN A CHEMICAL DEPENDENCY/SUBSTANCEABUSE PROGRAM, SOME INFORMATION MAY BE OMITTED. This clinical summary was aggregated from multiple sources. Caution should be exercised in using it in the provision of clinical care. This summary normalizes information from multiple sources, and as a consequence, information in this document may materially change the coding, format and clinical context of patient data. In addition, data may be omitted in some cases. CLINICAL DECISIONS SHOULD BE BASED ON THE PRIMARY CLINICAL RECORDS. [facility] [employer] [facility]. provides no warranty or guarantee of the accuracy or completeness of information in this document.
--- NOTE | 2024-09-01 01:50 | ED.RN ---
This RN and multiple other RNs at bedside attempting to obtain a secondary IV access on the patient, however we were unable to at this time, notified. D/t inability to obtain another IV, the patient's second set of cultures were obtained after initiating antibiotics to prevent a delay in patient care.
[2024-09-01] MEDS: Ceftriaxone 2 GM in 0.9% Normal Saline (50mL MB+) 50 ML IV (01:54)
--- NOTE | 2024-09-01 02:07 | ED.RN ---
This RN is unable to complete the patient's medication reconciliation d/t the patient's altered mental status and inability to communicate verbally. MD aware.
--- NOTE | 2024-09-01 02:08 | HP.PCM.HOS_ITS ---
[facility] - General General Date of Admission: 09/01/24 Date of Service: 09/01/24 Chief Complaint: AMS; with patient Found Down at home and Confused. HPI Narrative LUBA MARSH, is a 68 F with a past medical history of essential hypertension; on amlodipine and carvedilol twice daily, hyperlipidemia; on atorvastatin, former tobacco abuse, CAD; s/p non-STEMI (2017), paroxysmal atrial fibrillation; on apixaban, history of Takotsubo cardiomyopathy, history of renal artery stenosis, history of psoriatic arthritis, DM-2; of unknown control on glipizide plus sliding scale insulin TID AC, diabetic neuropathy; on gabapentin 3 times daily, BURKE; on CPAP, bipolar disorder; on fluoxetine BID, buspirone plus as needed hydroxyzine 3 times daily as needed, chronic dementia; on donepezil, OAB; on mirabegron, oxybutynin and tolterodine, seasonal allergies; on fexofenadine, RLS, history of muscle spasms; on tizanidine 3 times daily as needed, GERD; with hiatal hernia and history of PUD (12/2023), and OA; with history of Left hip fracture, history of back surgery and recurrent falls with recent fall with intractable back pain on May 17, 2024 causing patient to be admitted here; on tramadol every 6 hours as needed who presents to [facility] ER after she was found down at home confused. Mrs. Marsh is not a reliable historian at this time so information was gathered from chart, medical staff and computer. According to the records she prasterone medical alert button and was found by EMS and a urine soaked diaper they estimated had been on place for at least ~3 days. The EMS squad was informed by the patient that, she sometimes gets like this from time to time but he had no intention of calling 911 or bring her to the hospital. In the ER she was noted to have a UA positive for Acute Cystitis; without hematuria with Fever of 100.1 degrees Fahrenheit, severe Leukocytosis of 23.7K and Lactic Acidosis of 2.2 mmol/L all present on admission consistent with suspected Sepsis complicated by clinical evidence of Septic Encephalopathy compounded by mild Hypercalcemia of 11.2 mg/dL in addition to mild Transaminitis; with AST 53 units/L, ALT 49 units/L and alkaline phosphatase 166 units/L with total creatinine kinase of 237 units/L along with CT evidence of interval development of an L3 vertebral body fracture with recommendation to correlate as to acuity with no acute abdominal pelvic findings otherwise noted CXR that revealed no acute findings and his CT that revealed no acute findings. She was then admitted to the ICU for treatment under the sepsis protocol for status is expected to extend beyond 2 midnights. [facility] Medical History DURAN (acute kidney injury) Sepsis High anion gap metabolic acidosis Acute kidney injury Candidal intertrigo Acute UTI Recurrent falls Acute delirium Altered level of consciousness Acute encephalopathy Myocardial infarction type 2 Non-ST elevation ID (NSTEMI) Hiatal hernia Irritable bowel Back pain due to injury Restless legs Injury of head and neck High cholesterol Hearing loss, right Bipolar disorder Depression Anxiety GERD (gastroesophageal reflux disease) Former smoker Sleep apnea Atrial fibrillation Migraines Dementia Closed intertrochanteric fracture of left hip Psoriatic arthritis Nonobstructive atherosclerosis of coronary artery Obesity Type 2 diabetes mellitus Takotsubo syndrome Hyperlipidemia Essential (primary) hypertension NSTEMI (non-ST elevated myocardial infarction) (01/06/18) Home Medications ?Medication ?Instructions ?Recorded ?Last Taken ?Type apixaban 2.5 mg tablet (Eliquis) 2.5 mg PO BID blood t hinner 02/14/24 Unknown History ergocalciferol (vitamin D2) 1,250 1,250 mcg PO SA raghav min 04/20/24 05/10/24 History mcg (50,000 unit) capsule (Vitamin D2) fexofenadine 180 mg tablet 180 mg PO DAILY allergies 0 04/20/24 Unknown History glipizide 10 mg tablet 10 mg PO DAILY diabetes 11/06 Unknown History atorvastatin 20 mg tablet 20 mg PO QHS cholesterol #0 tabs 04/24/24 05/12/24 Rx carvedilol 3.125 mg tablet 3.125 mg PO BIDCM blood pre ssure 04/24/24 05/13/24 Rx #0 tabs fluoxetine 40 mg capsule 40 mg PO BID #0 caps 5 Unknown Rx gabapentin 100 mg capsule 100 mg PO TID nerve pain #0 caps 04/24/24 Unknown Rx pantoprazole 40 mg tablet,delayed 40 mg PO BID reflux #0 tabs 04/24/24 Unknown Rx release tolterodine 4 mg capsule,extended 4 mg PO DAILY #0 cap s 04/24/24 Unknown Rx release 24 hr acetaminophen 325 mg tablet 650 mg PO Q4H PRN Fever, p ain 05/13/24 05/12/24 History 1-11/21 buspirone 15 mg tablet 15 mg PO BID mental health 0 05/13/24 Unknown History donepezil 10 mg tablet 10 mg PO DAILY memory Unknown History mirabegron 50 mg tablet,extended 50 mg PO DAILY bladde r 05/13/24 Unknown History release 24 hr Remove Patch 2 patch topical DAILY@2200 # #0 05/16/24 Unknown Rx aluminum-mag hydroxide-simethicone 30 ml PO Q6H PRN UT N Gastric 05/16/24 Unknown Rx 400 mg-400 mg-40 mg/5 mL oral susp Burning #0 mL (Mag-Al Plus Extra Strength) amlodipine 10 mg tablet 10 mg PO DAILY #60 tabs 06/06 Unknown Rx hydroxyzine pamoate 25 mg capsule 25 mg PO TID PRN PRN severe 05/16/24 Unknown Rx anxiety #0 caps insulin lispro 100 unit/mL See Protocol subcut ACHS #0 mL 05/16/24 Unknown Rx subcutaneous pen (Humalog KwikPen (U-100) Insulin) lidocaine 5 % topical patch 2 patch topical DAILY #0 e a 05/16/24 Unknown Rx melatonin 3 mg tablet 3 mg PO QHS PRN PRN Insomnia #0 05/16/24 Unknown Rx tabs potassium chloride 20 mEq 20 meq PO BIDCM #0 tabs 06/06 Unknown Rx tablet,extended release(part/cryst) sennosides 8.6 mg-docusate sodium 2 tab PO BID PRN PRN Constipation 05/16/24 Unknown Rx 50 mg tablet (Stimulant Laxative #0 tabs Plus) tizanidine 2 mg tablet 2 mg PO Q8H PRN PRN muscle 0 05/16/24 Unknown Rx spasms/strain #0 tabs nitrofurantoin 1 cap PO Q12.TCU 05/19/24 Un known History monohydrate/macrocrystals 100 mg capsule oxybutynin chloride 15 mg PO 05/19/24 Unknown History tablet,extended release 24 hr tramadol 50 mg tablet 50 mg PO Q6H PRN pain 3 days #12 05/19/24 Unknown Rx tabs Allergy/AdvReac Type Severity Reaction Status Date / Time morphine Allergy Severe Other Verified 09/01/24 00:06 codeine Allergy Itching Verified 09/01/24 00:06 fentanyl AdvReac confusion Verified 09/01/24 00:06 naproxen AdvReac Other Verified 09/01/24 00:06 Family History Mother Cancer skin Father Cancer prostate Surgical History History of back surgery History of carpal tunnel release of both wrists History of hysterectomy History of left heart catheterization (01/07/18) Social History household members: spouse Smoking Status: Former smoker how long ago did patient quit smokin years ago alcohol intake: never substance use type: does not use caffeine: Yes Type: carbonated beverages Number of servings: 1 ROS ROS Narrative Review of systems was not possible due to patient's encephalopathy. Vital Signs Vital Signs Vital Signs: 09/01/24 00:06 09/01/24 00:09 09/01/24 00:49 Temperature 98.2 F 98.2 F Temperature Source Axillary Axillary Pulse Rate 129 H 129 H Respiratory Rate 22 H 22 H Blood Pressure 131/69 H 131/69 H Blood Pressure Mean 89 89 Pulse Ox 95 95 Oxygen Delivery Method Room Air Room Air Room Air 09/01/24 01:00 09/01/24 02:00 09/01/24 02:00 Temperature 100.6 F H 100.2 F H 100.1 F H Temperature Source Core Core Pulse Rate 118 H 118 H 119 H Respiratory Rate 22 H 22 H 22 H Blood Pressure 112/89 H 154/84 H 154/84 H Blood Pressure Mean 96 107 107 Pulse Ox 99 98 97 Oxygen Delivery Method Room Air Room Air Weight Weight: 136 lb 3.931 oz Body Mass Index (BMI) 24.1 Physical Exam Const Constitutional Narrative: Patient is lethargic and not following commands but is moving all 4 extremities and grunting involuntarily. Orientation / Consciousness: confused and lethargic HEENT normocephalic, head/scalp atraumatic and hearing grossly normal bilaterally HEENT Narrative: Mucous membranes dry with Left IJ in place. Eyes PERRL and EOMs intact bilaterally Neck no lymphadenopathy, supple and no JVD Neck Narrative: Left IJ in place. Resp normal respiratory effort, no retractions, no use of accessory muscles and clear to auscultation bilaterally Cardio regular rate and regular rhythm GI normal to inspection, nondistended, normoactive bowel sounds, soft to palpation, non-tender and non-distended Extremity normal to inspection, full ROM and no clubbing, cyanosis or edema Extremity Narrative: Patient did have erythema throughout sacral area with no other rashes or lesions noted. Skin Skin Narrative: Patient did have erythema throughout sacral area with no other rashes or lesions noted. Neuro Neuro Narrative: Patient is lethargic and not following commands but is moving all 4 extremities and grunting involuntarily. Psych Psych Narrative: Patient is lethargic and confused. Results Medical Records Data Attestation: I reviewed the patient's medical records Lab / Micro Data Attestation: I reviewed the patient's lab results. 09/01/24 00:18 09/01/24 00:18 Labs: Laboratory Results - last 24 hr 09/01/24 00:18: WBC 23.7 H, RBC 6.42 H, Hgb 18.4 H*, Hct 54.4 H, MCV 84.7, MCH 28.7, MCHC 33.8, RDW Std Deviation 40.5, RDW Coeff of Gerhard 13.5, Plt Count 434, MPV 9.6, Immature Gran % (Auto) 0.600, Neut % (Auto) 84.3 H, Lymph % (Auto) 8.5 L, [place] % (Auto) 6.3, Eos % (Auto) 0.0, Baso % (Auto) 0.3, Absolute Neuts (auto) 20.0 H, Absolute Lymphs (auto) 2.01, Nucleated RBC % 0, PT 15.1 H, INR 1.2, APTT 26.2, Sodium 141, Potassium 4.0, Chloride 100, Carbon Dioxide 16.4 L, Anion Gap 25 H, BUN 30 H, Creatinine 1.38 H, Estim Creat Clear Calc 31.38 L, Est GFR (MDRD) Non-Af 41 L, BUN/Creatinine Ratio 21.8 H, Glucose 244 H, Lactic Acid 2.2 H*, Calcium 11.2 H, Total Bilirubin 1.40 H, AST 53 H, ALT 49 H, Alkaline Phosphatase 166 H, Total Creatine Kinase 237 H, Total Protein 9.4 H, Albumin 5.0 H, Globulin 4.4 H, Albumin/Globulin Ratio 1.1 09/01/24 00:46: Urine Color Yellow, Urine Clarity Turbid, Urine pH 6.0, Ur Specific [place] 1.015, Urine Protein 500 H, Urine Glucose (UA) Normal, Urine Ketones 50 H, Urine Occult Blood 150 H, Urine Nitrite Positive H, Urine Bilirubin Negative, Urine Urobilinogen Normal, Ur Leukocyte Esterase 500 H, Urine RBC 0-5 SEEN, Urine WBC >100 SEEN, Ur Squamous Epith Cells 5-10 SEEN, Ur Transition Epith Cell 0-5 SEEN, Ur Renal Epithelial Cell 5-10 SEEN, Urine Bacteria 4+, Urine Mucus 0 SEEN Rhythm Strip Rhythm Strip: Sinus Tach Rate: 125 Ectopy: None Imaging Radiology Impression Brain CT 09/01/24 00:26 IMPRESSION: No acute findings Reading Location: [facility] Abdomen/Pelvis CT 09/01/24 00:29 IMPRESSION: Interval development of an L3 vertebral body fracture, correlate as to acuity. No acute abdominopelvic findings are otherwise noted. Reading Location: [facility] Chest X-Ray 09/01/24 01:05 IMPRESSION: No acute chest findings. Reading Location: [facility] Assessment & Plan Assessment/Plan (1) Sepsis: QUALIFIERS: Sepsis acute organ dysfunction status: with acute organ dysfunction Sepsis type: sepsis due to unspecified organism Severe sepsis acute organ dysfunction type: encephalopathy Severe sepsis shock status: without septic shock Qualified Code(s): A41.9 - Sepsis, unspecified organism; R65.20 - Severe sepsis without septic shock; G93.41 - Metabolic encephalopathy (2) Septic encephalopathy: (3) Acute cystitis without hematuria: (4) Closed L3 vertebral fracture: QUALIFIERS: Encounter type: initial encounter Fracture morphology: unspecified fracture morphology Qualified Code(s): S32.039A - Unspecified fracture of third lumbar vertebra, initial encounter for closed fracture (5) Frequent falls: (6) Hypercalcemia: (7) Transaminitis: (8) Erythrocytosis: (9) Paroxysmal atrial fibrillation: (10) Chronic anticoagulation: PLAN: Plan 1. UA positive for Acute Cystitis; without hematuria with Fever of 100.1 degrees Fahrenheit, severe Leukocytosis of 23.7K and Lactic Acidosis of 2.2 mmol/L all present on admission consistent with suspected Sepsis - Admit to ICU for treatment under the sepsis protocol. Continue empiric IV ceftriaxone begun in ER and await culture and sensitivity data. Give pantoprazole 40 mg IV daily for GI prophylaxis. Give acetaminophen UT for pain or fever. Give ondansetron IV as needed for nausea and vomiting. Finally, we will consult pulmonary/critical-care see this patient on rounds in a.m. further recommendations with appreciated in advance. 2. Septic Encephalopathy with patient found down at home and urine soaked diapers attributable to #1 in the setting of known Chronic Dementia - Check TSH, B12, Folate, HgbA1c, MICHELLE and UDS to evaluate for potentially reversible causes of confusion. Check d-dimer to screen for VTE. We will consult Case Management see this patient on rounds in the a.m. to see if a safer living situation can be arranged with help appreciated advance. Otherwise continue supportive care monitor for improvement. 3. L3 Compression Fracture newly on CT this admission complicating #1 & #2 in the setting of known recurrent Frequent Falls with recent fall causing intractable back pain on May 17, 2024 causing patient to be admitted here - Check MRI of the L-spine to confirm acuity as per radiologist's recommendations. 4. Hypercalcemia of 11.2 mg/dL present on admission adding to the medical complexity of #1 - #3- Patient treated with sepsis IV fluid bolus which should correct this issue. Check intact-PTH. 5. Transaminitis; with AST 53 units/L, ALT 49 units/L and alkaline phosphatase 166 units/L present on admission adding to the burden of disease outlined from #1 - #4 - Check CMP daily to follow trend with CT scan of the abdomen and pelvis negative for acute pathologic changes noted on admission. 6. Erythrocytosis with hemoglobin of 18.4 g/dL present on admission - Volume resuscitate and recheck CBC daily to follow trend. 7. Paroxysmal atrial fibrillation; on apixaban - Transition enoxaparin until she can be safely transitioned to apixaban. 8. Essential hypertension; on amlodipine and carvedilol twice daily - Hold scheduled antihypertensives in light of #1. 9. Hyperlipidemia; on atorvastatin - Restart statin when patient can tolerate oral intake. Check Lipid Profile. 10. Former tobacco abuse - Noted. 11. CAD; s/p non-STEMI (2018) - Serialize troponin. 12. History of Takotsubo cardiomyopathy - Noted with recent echocardiogram done on April 21, 2024 that revealed LVEF 60% with trivial mitral and aortic valve insufficiency. 13. History of renal artery stenosis - Noted. 14. History of psoriatic arthritis - Stable with no evidence of acute flare at this time. 15. DM-2; of unknown control on glipizide plus sliding scale insulin TID AC plus diabetic neuropathy; on gabapentin 3 times daily - Keep NPO for now. FSBS q. AC/HS plus SSI. Check HgbA1c to objectively evaluate quality of diabetic control. 16. BURKE; on CPAP - Maintain on CPAP. 17. Bipolar disorder; on fluoxetine BID, buspirone plus as needed hydroxyzine 3 times daily as needed - Hold oral medications until mental status improves. 18. OAB; on mirabegron, oxybutynin and tolterodine - Hold oral medications until further notice. 19. Seasonal allergies; on fexofenadine - Hold for now. 20. RLS - Stable. 21. History of muscle spasms; on tizanidine 3 times daily as needed - Consider restarting cessation when patient's mental status improves. 22. GERD; with hiatal hernia and history of PUD (12/2023) - Patient on IV PPI for #1. 23. OA; with history of Left hip fracture, history of back surgery and recurrent falls with ; on tramadol every 6 hours as needed - Noted with patient only have as needed acetaminophen as per scale outlined in #1. 24. DVT/GI prophylaxis - Patient started on enoxaparin 60 mg sq x 1 for #7 plus SCD's. Pantoprazole 40 mg IV daily. Total time: Approximately (midnight less than) 75 minutes. Sepsis Attestation Sepsis Alert: Yes Sepsis Attestation: Agree w/Sepsis Date exam was performed: 09/01/24 Time exam was performed: 02:30 Possible Source of Sepsis: Genitourinary Sepsis Organ Dysfunction Criteria Present: Lactic Acid > 2 mmol/L and New/Unexplained change in mental status Supportive Findings: n the ER she was noted to have a UA positive for Acute Cystitis; without hematuria with Fever of 100.1 degrees Fahrenheit, severe Leukocytosis of 23.7K and Lactic Acidosis of 2.2 mmol/L all present on admission consistent with suspected Sepsis complicated by clinical evidence of Septic Encephalopathy compounded by mild Hypercalcemia of 11.2 mg/dL in addition to mild Transaminitis; with AST 53 units/L, ALT 49 units/L and alkaline phosphatase 166 units/L with total creatinine kinase of 237 units/L along with CT evidence of interval development of an L3 vertebral body fracture with recommendation to correlate as to acuity. Fluid Resuscitation Fluid resuscitation indicated?: Yes Fluid Resuscitation ordered: 30 ml/kg fluid bolus ordered Amount of fluid ordered: 2 Sepsis Note Date exam was performed: 09/01/24 Time exam was performed: 06:18 Sepsis Attestation: Sepsis re-evaluation was performed Response to fluids: Fluid responsive hypotension Charges/Coding Visit Charges Inpatient E&M: 43407 Init Hosp L3
--- NOTE | 2024-09-01 02:11 | ED.RN ---
This RN notified Dr. Arce of the patient having a red streak near the patient's IV shortly after starting the patient on Ceftriaxone. MD ordered medications, see MAR documentation, and MD instructed this RN to continue the medication and continue to monitor the patient's arm in order to watch for a further reaction.
[2024-09-01] MEDS: DiphenhydrAMINE 50 MG/ML Syringe 25 MG IV (02:14)
--- OUTSIDE RECORDS SUMMARY | 2024-09-01 02:45 | XMS RPT_ITS | CCD ---
Author Organization [facility] Care Team Providers Care Corporate Director Of Pharmacy Name Role Phone PROVIDER, UNKNOWN Unavailable Unavailable PROVIDER, UNKNOWN Unavailable Unavailable Cici Calderon Unavailable Unavailable REGINA CHOPRA Referring Unavailable REGINA CHOPRA Admitting Unavailable REGINA CHOPRA Attending Unavailable Dr. Cici Calderon Primary Care Provider 1([facility])[phone] Dr. Cici Calderon Referring Provider 1([facility])[phone] DIDIER Fowler Attending Provider 1([facility])[phone] Dr. Ethan Hayes Attending Provider 1([facility])[phone] ORESTES Boyer Primary Care Provider 1([facility])[phone] Dr. Nico Arce Emergency Provider 1([facility])[phone] Dr. Home Valverde Admit Provider 1([facility])[phone] Home Valverde Referring Provider 1([facility])[phone] Dr. Home Valverde Other Provider 1([facility])[phone] John Short Attending Provider 1([facility])[phone] Dr. John Short Other Provider 1([facility])[phone] Home Valverde Attending Provider 1([facility])[phone] Dr. Kanwal Aguilar Attending Provider 1([facility])[phone] Dr. Tamiko Quigley Attending Provider 1([facility])[phone] Tamiko Quigley Other Provider Dr. Josue Ivan Other Provider 1([facility])[phone] Josephine Lutz Other Provider 1([facility])[phone] Dr. Kassandra Fountain Other Provider Dr. Gerry Austin Other Provider Dr. Regina Oden Other Provider Dr. Home Miller Attending Provider Paul, Dr. Bhat Other Provider Dr. Filemon Coffman Other Provider Dr. Atul Quezada Other Provider Dr. Dann Linn Other Provider Dr. Floyd Kelley Other Provider Unavailab lance Wyatt INDUSTRIAL WASTE INSPECTOR, INDUSTRIAL WASTE INSPECTOR-C Cindy Other Provider Dr. Dann Linn Attending Provider Dr. Prem Toro Other Provider [phone] Cici Calderon MD Primary Care Provider Dr. Home Valverde Referring Provider Cici Calderon Primary Care Provider Ccii Calderon Primary Care Provider ESTEBAN HAWLEY Attending Unavailable ESTEBAN HAWLEY Admitting Unavailable NICOLA ADHIKARI Consulting Unavailable WILFRID BENDER Consulting Unavailable JOHANNE DEUTSCH Consulting Unavailable Unavailable Primary Care Provider Unavailabl e Sharla BRITTONP, Rudy Primary Care Provider Sharla, INDUSTRIAL WASTE INSPECTOR-C Rudy Primary Care Provider Dr. Marcos Hoffman [...] Unavailable Dr. Miguel Chapman Other Provider [phone] Kvng, Cici A Primary Care Provider [phone] ESTEBAN HAWLEY Attending Unavailable ESTEBAN HAWLEY Admitting [...] Unavailable KVNG, CICI Primary Care Unavailable Sharla, INDUSTRIAL WASTE INSPECTOR-C [place] Primary Care Provider [phone] Dr. Marcos Hoffman Emergency Provider Dr. Anuja [...] Unavailable Dr. Miguel Chapman Other Provider [phone] Sharla INDUSTRIAL WASTE INSPECTOR-C, [place] Primary Care Provider [phone] Dr. Yifan Zepeda DO Emergency Provider Lauren WRIGHT, Dr. Kanwal Hernandez Admit Provider Dr. Kanwal Aguilar MD Other Provider Hakeem WRIGHT, Dr. [...] Vanessa WRIGHT, Dr. Zaidi Other Provider [phone] Ata WRIGHT, Dr. Valle Other Provider Chadd WRIGHT, Dr. Foss Other Provider [phone] Sandy WRIGHT, Dr. Pizano Other Provider [phone] Vince WRIGHT, Dr. Tidwell Other Provider [phone] Lawson WRIGHT, Dr. Cummings Other Provider Corie WRIGHT, Dr. Richards Other Provider Unavailabl cris Palm MD, Dr. Dan Other Provider Alaina WRIGHT, Dr. Osborne Other Provider [phone] Delphine WRIGHT, Dr. Alegria Other Provider Dr. Saad Hoang DO Other Provider [phone] Cornelius Birch MD Other Provider Dr. Landon Nelson DO Other Provider Sumit WRIGHT, Dr. Pena Other Provider Travis WRIGHT, Dr. Florez Other Provider [phone] Zahra Palacio MD Other Provider Lauren WRIGHT, Dr. Kanwal Hernandez Referring Provider Dr. Atul Quezada DO Attending Provider Dr. Zahra Palacio MD Referring Provider Reina ESQUIVEL, Dr. White Attending Provider Justice WRIGHT, Dr. Mack Attending Provider Denise WRIGHT, Dr. Thomason Referring Provider Windsor INDUSTRIAL WASTE INSPECTOR-C, [place] Referring Provider Claude WRIGHT, Dr. Walsh Emergency Provider Dann ESQUIVEL, Dr. Morrison Admit Provider Dann ESQUIVEL, Dr. Morrison Other Provider Kellie WRIGHT, Dr. Jordana Cooney Attending Provider Dann ESQUIVEL, Dr. Morrison Attending Provider Stefan WRIGHT, Dr. Rodríguez Other Provider Kellie WRIGHT, Dr. Jordana Cooney Referring Provider Kellie WRIGHT, Dr. Jordana Cooney Other Provider Mohan WRIGHT, Dr. Diaz Emergency Provider Lauren WRIGHT, Dr. Kanwal Hernandez Attending Provider Deja ESQUIVEL, Dr. Paiz Attending Provider Chris WRIGHT, Dr. Warren Other Provider Anisha WRIGHT, Dr. Moran Other Provider Deja ESQUIVEL, Dr. Paiz Other Provider Tony WRIGHT, Dr. Moreno Attending Provider Windsor INDUSTRIAL WASTE INSPECTOR-C, [place] Primary Care Provider Reina ESQUIVEL, Dr. White [...] Provider Sandy WRIGHT, Dr. Pizano Other Provider Vince WRIGHT, Dr. Tidwell Other Provider [phone] Lawson WRIGHT, Dr. Cummings Other Provider Corie WRIGHT, Dr. Richards Other Provider Unavailabl cris Palm MD, Dr. Dan Other Provider Aliana WRIGHT, Dr. Osborne Other Provider Delphine WRIGHT, Dr. Alegria Other Provider Natalya ESQUIVEL, Dr. Nash Other Provider Queta WRIGHT, Dr. Shields Other Provider [phone] Omar ESQUIVEL, Dr. Navarrete Other Provider Sumit WRIGHT, Dr. Pena Other Provider Travis WRIGHT, Dr. Florez Other Provider [phone] Dr. Atul Quezada DO Attending Provider Lauren WRIGHT, Dr. Kanwal Hernandez Admit Provider Lauren WRIGHT, Dr. Kanwal Hernandez Other Provider Lauren WRIGHT, Dr. Kanwal Hernandez Referring Provider Adria Montenegro MD Emergency Provider Dr. Anuja Murcia MD Attending Provider Unavaila ble Divina WRIGHT, Dr. Cespedes Other Provider Unavailable Lorena WRIGHT, Dr. Barba Other Provider Kvng WRIGHT, Cici Ruano Primary Care Provider Sharla INDUSTRIAL WASTE INSPECTOR, Rudy Primary Care Provider Sharla, Rudy Primary Care Unavailable Sharita Azar Attending Unavailable Sharla, Rudy Primary Care Unavailable Sharla, Rudy Referring Unavailable Christopher Huang Attending Unavailable Koram, Jordana Ivet Attending Unavailable Dann, Tamiko Consulting Unavailable Dann, Tamiko Ad[facility] Koram, Jordana Ivet Consulting Unavailable Dann, Tamiko Admitting Unavailable Dann, Tamiko Consulting Un[facility] Unavailable Koram, Jordana Ivet Attending Unavailable [facility] Unavailable Kanwal Aguilar Consulting Unavailable Kanwal Aguilar Admitting Unavailable Zahra Palacio Attending Unavailable Tony, iTffanie Consulting Unavailalpa e Katlyn, Nicola Consulting Unavailable [facility] Unavailable Sharita Azar Attending Unavailable Jopperi, Nicola Admitting Unavailable Belal, Farouk Consulting Unavailable Ronny Romo Consulting Unavailable Jopperi, Nicola Admitting Unavailable Jopperi, Nicola Consulting Unavailable [facility] Primary Care Unavailable Ronny Romo Attending Unavailable Belal, Farouk Consulting Unavailable VorAbhijeet martinezga Consulting Unavailable [facility] Primary Care Unavailable Zora Sunshine Referring Unavailable [facility] Attending Unavailable Tony, Nagapradee Consulting UnavailZahra Ortega Attending Unavailable [facility] Unavailable Kanwal Aguilar Admitting [...] Jean Consulting Unavailable Gautam Robles Consulting Unavailable [facility] Unavailable Kanwal Aguilar L Admitting Unavailable Kanwal Aguilar L Consulting Unavailable Anuja Murcia Attending Unavailable Jameson Carrillo Consulting Unavailable Anuja Murcia Consulting Unavailable [facility] Unavailable Kanwal Aguilar Attending Unavailable Atul Quezada Attending Unavailable [facility] Unavailable Lauren Kanwal L [...] Short Consulting Unavailable Nico Arce Referring Unavailable [facility] Unavailable Nico Arce Attending Unavailable John Short Attending Unavailable Tiffanie Jimenez Attending Unavailabl e [facility] Unavailable Christopher Huang Attending Unavailable Zahra Palacio Referring Unavailable [facility] Unavailable Ethan Hayes Attending [...] Translations: [HYDROCODONE-ACET AMINOPHEN] Drug Allergy 0 Itching [facility] Repository (15 sources) atorvastatin; Translations: [ATORVASTATIN] Drug Allergy 8 [facility] Repository (20 sources) Codeine; Translations: [CODEINE] Drug Allergy 7 Intolerance [facility] Repository (20 sources) Naproxen; Translations: [NAPROXEN] Drug Allergy 8 Intolerance [facility] Repository (20 sources) fentaNYL Drug Allergy 3 [facility] (20 sources) Morphine Drug Allergy 3 Other [facility] (20 sources) Non-steroidal anti-inflammatory agent Drug Intolerance 7 Rash [facility] (1 source) fentaNYL Drug Allergy 5 [facility] Repository (1 source) Morphine Drug Allergy 5 [facility] Repository Medications Current Medications Medication Drug [...] oral tablet (3 sources) Dihydropyridine Calcium Channel Shorty Start: 2024 apixaban 2.5 mg oral tablet [...] for constipation. Blood Glucose Monitoring Suppl (FreeStyle Ringoes) kit (17 sources) Blood Glucose Monitoring Suppl (FreeStyle Ringoes) kit busPIRone hydrochloride 7.5 mg oral tablet [...] 12-29-2022 Start: 02-12-2019 Ergocalciferol (Vitamin D2) Active 47836 UNIT PO SA February 12, 2019 12:00am [...] Sun10/13/22 at 1931 take 1 capsule by [facility] once daily at bedtime melatonin 3 [...] Start: 04-14-2023 take 1 capsule by mo [facility] once daily turmeric Active 1 CAP PO [...] Comment on above: Take 1 tablet by [facility]. meloxicam 7.5 mg oral tablet (20 sources) [...] 1:00am Start: 08-13-2012 take 2 tablets by [facility] twice daily oxybutynin 5 mg tablet Take 2 tablets by mouth twice daily. 120 tablet 11 08/13/2012 Active Comment on above: Take 2 tablets by [facility] twice daily. oxyCODONE hydrochloride 5 mg oral tablet (20 sources) Opioid Agonist Start: 04-14-2023 End: 12-30-2023 Start: 01-01-2023 End: 01-08-2023 take 1 tablet by mouth every six hours as needed for pain oxyCODONE (Roxicodone) 5 MG immediate release tablet Indications: Closed displaced intertrochanteric fracture of right femur, initial encounter ([facility]) , Closed fracture of multiple pubic rami, right, initial encounter ([facility]) Take 1 tablet (5 mg) by mouth [...] crush, chew, or split. 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; Translations: [half-way (current) use of oral 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 drugs] Onset: [...] Office Visit (ENWSTR ) ----- DONNA MARSH ([id number]) 1955 F Date Time Provider Department 08/11/24 10:00 AM JEROMY LAI ENWSTR During your visit today, we recorded the following information about you: Temperature Pulse Respiration Blood pressure 97.5 degrees 70/minute 12/minute 118/72 Weight 65.5 kg Jeromy Lai MD 08/11/2024 5:40 PM Signed Endocrinology and Metabolism [facility] Visit Note NAME: Donna Marsh is a 68 year old old female PCP: Rudy Boyer NP Requesting Provider: Regina Oden MD [address] [facility] [phone] My final recommendations will be communicated back [...] has weaned off Pepsi and now consumes [place] iced tea. Alcohol use: no Use of [...] L5; follows with DR. LINDSEY Morbid obesity ([facility]) since quit smoking Osteopenia Osteoporosis [...] mesh TONSILLECTO (more content not included)... Normal [facility] CBC W Auto Differential pane l (Bld)on 06-20-2024 Basophils (Bld) [#/Vol] 10*3/uL Normal <0.11 C [facility] Comment on above: Order Comment: Speci men Type: URINE SPECIMEN Ordering Facility: [facility] Address: [address] [place] [address] Performed By: #### L [id number] #### [facility] CLIA [id number] [address] [place] [address] [place] [address] [place] Basophils/100 WBC (Bld) 0.3 % Normal C [facility] Comment on above: Order Comment: Speci men Type: URINE SPECIMEN Ordering Facility: [facility] Address: [address] [place] [address] Performed By: #### L [id number] #### [facility] CLIA [id number] [address] [place] [address] [place] Differential cell count method Nom (Bld) Auto Normal [facility] Comment on above: Order Comment: Speci men Type: URINE SPECIMEN Ordering Facility: [facility] Address: [address] [place] [address] Performed By: #### L [id number] #### [facility] CLIA [id number] [address] [place] [address] [place] Eosinophils (Bld) [#/Vol] 0.21 10*3/uL Normal <0.46 [facility] Comment on above: Order Comment: Speci men Type: URINE SPECIMEN Ordering Facility: [facility] Address: [address] [place] [address] Performed By: #### L [id number] #### [facility] CLIA [id number] [address] [place] [address] [place] Eosinophils/100 WBC (Bld) 2.7 % Normal [facility] Comment on above: Order Comment: Speci men Type: URINE SPECIMEN Ordering Facility: [facility] Address: [address] [place] [address] Performed By: #### L [id number] #### [facility] CLIA [id number] [address] [place] [address] [place] Erythrocyte distribution width (RBC) [Ratio] 13.4 % Normal 11.5-15.0 [facility] Comment on above: Order Comment: Speci men Type: URINE SPECIMEN Ordering Facility: [facility] Address: [address] [place] [address] Performed By: #### L [id number] #### [facility] CLIA [id number] [address] [place] [address] [place] Hematocrit (Bld) [Volume fraction] 38.4 % Normal 36.0-46.0 [facility] Comment on above: Order Comment: Speci men Type: URINE SPECIMEN Ordering Facility: [facility] Address: [address] [place] [address] Performed By: #### L [id number] #### [facility] CLIA [id number] [address] [place] [address] [place] Hemoglobin (Bld) [Mass/Vol] 12.3 g/dL Normal 11.5-15.5 [facility] Comment on above: Order Comment: Speci men Type: URINE SPECIMEN Ordering Facility: [facility] Address: [address] [place] [address] Performed By: #### L [id number] #### [facility] CLIA [id number] [address] [place] [address] [place] Immature granulocytes (Bld) [#/Vol] 10*3/uL Normal <0.10 [facility] Comment on above: Order Comment: Speci men Type: URINE SPECIMEN Ordering Facility: [facility] Address: [address] [place] [address] Performed By: #### L [id number] #### [facility] CLIA [id number] [address] [place] [address] [place] Immature granulocytes/100 WBC (Bld) 0.1 % Normal [facility] Comment on above: Order Comment: Speci men Type: URINE SPECIMEN Ordering Facility: [facility] Address: [address] [place] [address] Performed By: #### L [id number] #### [facility] CLIA [id number] [address] [place] [address] [place] Lymphocytes (Bld) [#/Vol] 2.37 10*3/uL Normal 1.00-4.00 [facility] Comment on above: Order Comment: Speci men Type: URINE SPECIMEN Ordering Facility: [facility] Address: [address] [place] [address] Performed By: #### L [id number] #### [facility] CLIA [id number] [address] [place] [address] [place] Lymphocytes/100 WBC (Bld) 31.0 % Normal [facility] Comment on above: Order Comment: Speci men Type: URINE SPECIMEN Ordering Facility: [facility] Address: [address] [place] [address] Performed By: #### L [id number] #### [facility] CLIA [id number] [address] [place] [address] [place] MCH (RBC) [Entitic mass] 29.6 pg Normal 26.0-34.0 [facility] Comment on above: Order Comment: Speci men Type: URINE SPECIMEN Ordering Facility: [facility] Address: [address] [place] [address] Performed By: #### L [id number] #### [facility] CLIA [id number] [address] [place] [address] [place] MCHC (RBC) [Mass/Vol] 32.0 g/dL Normal 30.5-36.0 [facility] Comment on above: Order Comment: Speci men Type: URINE SPECIMEN Ordering Facility: [facility] Address: [address] [place] [address] Performed By: #### L [id number] #### [facility] CLIA [id number] [address] [place] [address] [place] MCV (RBC) [Entitic vol] 92.5 fL Normal 80.0-100.0 C [facility] Comment on above: Order Comment: Speci men Type: URINE SPECIMEN Ordering Facility: [facility] Address: [address] [place] [address] Performed By: #### L [id number] #### [facility] CLIA [id number] [address] [place], [place] [id number] [place] Monocytes (Bld) [#/Vol] 0.58 10*3/uL Normal <0.87 [facility] Comment on above: Order Comment: Speci men Type: URINE SPECIMEN Ordering Facility: [facility] Address: [address] [place] [address] Performed By: #### L [id number] #### [facility] CLIA [id number] [address] [place] [address] [place] Monocytes/100 WBC (Bld) 7.6 % Normal [facility] Comment on above: Order Comment: Speci men Type: URINE SPECIMEN Ordering Facility: [facility] Address: [address] [place] [address] Performed By: #### L [id number] #### [facility] CLIA [id number] [address] [place] [address] [place] Neutrophils (Bld) [#/Vol] 4.45 10*3/uL Normal 1.45-7.50 [facility] Comment on above: Order Comment: Speci men Type: URINE SPECIMEN Ordering Facility: [facility] Address: [address] [place] [address] Performed By: #### L [id number] #### [facility] CLIA [id number] [address] [place] [address] [place] Neutrophils/100 WBC (Bld) 58.3 % Normal [facility] Comment on above: Order Comment: Speci men Type: URINE SPECIMEN Ordering Facility: [facility] Address: [address] [place] [address] Performed By: #### L [id number] #### [facility] CLIA [id number] [address] [place] [address] [place] Nucleated RBC (Bld) [#/Vol] 10*3/uL Normal <0.01 [facility] Comment on above: Order Comment: Speci men Type: URINE SPECIMEN Ordering Facility: [facility] Address: [address] [place] [address] Performed By: #### L [id number] #### [facility] CLIA [id number] [address] [place] [address] [place] Nucleated RBC/100 WBC (Bld) [Ratio] 0.0 /100 WBC Normal [facility] Comment on above: Order Comment: Speci men Type: URINE SPECIMEN Ordering Facility: [facility] Address: [address] [place] [address] Performed By: #### L [id number] #### [facility] CLIA [id number] [address] [place] [address] [place] Platelet mean volume (Bld) [Entitic vol] 9.1 fL Normal 9.0-12.7 [facility] Comment on above: Order Comment: Speci men Type: URINE SPECIMEN Ordering Facility: [facility] Address: [address] [place] [address] Performed By: #### L [id number] #### [facility] CLIA [id number] [address] [place] [address] [place] Platelets (Bld) [#/Vol] 271 10*3/uL Normal 150-400 [facility] Comment on above: Order Comment: Speci men Type: URINE SPECIMEN Ordering Facility: [facility] Address: [address] [place] [address] Performed By: #### L [id number] #### [facility] CLIA [id number] [address] [place] [address] [place] RBC (Bld) [#/Vol] 4.15 10*6/uL Normal 3.90-5.20 [facility] Comment on above: Order Comment: Speci men Type: URINE SPECIMEN Ordering Facility: [facility] Address: [address] [place] [address] Performed By: #### L [id number] #### [facility] CLIA [id number] [address] [place] [address] [place] WBC (Bld) [#/Vol] 7.64 10*3/uL Normal 3.70-11.00 [facility] Comment on above: Order Comment: Speci men Type: URINE SPECIMEN Ordering Facility: [facility] Address: [address] [place] [address] Performed By: #### L [id number] #### [facility] CLIA [id number] [address] [place] [address] [place] CNOVSPon 06-20-2024 CNOVSP Visit (SP) Office (HEMAWS) ----- DONNA MARSH ([id number]) 1955 F Date Time Provider Department 06/20/24 [...] cholesterol, irritable bowel, migraine, CAD (non-ST elevation [place] 01/06/2018), psoriatic arthritis, sleep apnea, osteoporosis, Takotsubo syndrome and type 2 diabetes. Patient was admitted to [facility] on 08/05/2022 following a mechanical fall [...] by Gallito Crisostomo MD on 08/13/[address]/Chest without Contrast IMPRESSION: Cardiomegaly with pulmonary [...] normal. The (more content not included)... Normal [facility] FLOW CYTOMETRY FOR LEUKEMIA/ LYMPHOMA (FCLL) PERFORMABLEon 06-20-2024 FLOW CYTOMETRY ORDER STATUS Results will be reported under F case ID when completed Normal [facility] Comment on above: Order Comment: Jeff gill Type: BLOOD SPECIMEN Ordering Facility: [facility] Address: [address] [place] [address] Performed By: #### F CLLP #### [facility] [facility] CLIA [id number] [address] [place] [address] [place] FLOW CYTOMETRY FOR LEUKEMIA/ LYMPHOMA (FCLL) REFLEXon 06-20-2024 DIAGNOSIS COMMENT Normal [facility] Comment on above: Order Comment: Jeff gill Type: BLOOD SPECIMEN Ordering Facility: [facility] Address: [address] [place] [address] Result Comment: This test was developed and its performance characteristics determined by [facility]'s Prem Andujar [facility] ([facility]). It has not been cleared or approved by the FDA. RT[facility] is regulated under CLIA as qualified to perform high-complexity testing. This test is used for clinical purposes. It should not be regarded as investigational or for research. Performed By: #### F CLLRFLX #### [facility] CLIA [id number] [address] [place] [address] OF [facility] Normal [facility] Comment on above: Order Comment: Speci men Type: BLOOD SPECIMEN Ordering Facility: [facility] Address: [address] [place] [address] Result Comment: Diag nostic interpretation performed at [facility], [address] [place] [address] CLIA# [id number] Tick Sewer: Johnny Brito M.D. Performed By: #### F CLLRFLX #### [facility] CLIA [id number] [address] [place] [address] FLOW CYTOMETRY RESULTS Normal [facility] Comment on above: Order Comment: Speci men Type: BLOOD SPECIMEN Ordering Facility: [facility] Address: [address] [place] [address] Result Comment: Spec imen type: Peripheral blood [...] 06/26/2024 Performed By: #### F CLLRFLX #### [facility] IA [id number] [address] [place] [address] [place] GROSS DESCRIPTION A. Blood Normal [facility] Comment on above: Order Comment: Speci men Type: BLOOD SPECIMEN Ordering Facility: [facility] Address: [address] [place] [address] Result Comment: RECE IVED 8 MLS PERIPHERAL BLOOD (TOTAL) IN TWO EDTA TUBES Performed By: #### F CLLRFLX #### [facility] CLIA [id number] [address] [place] [address] [place] INTERPRETATION Normal [facility] Comment on above: Order Comment: Speci men Type: BLOOD SPECIMEN Ordering Facility: [facility] Address: [address] [place] [address] Result Comment: The findings show an immunophenotypically [...] EDT Performed By: #### F CLLRFLX #### [facility] CLIA [id number] [address] [place] [address] [place] IMMUNOFIXATION SCREEN, SERUM on 06-20-2024 MPA RESULT No M protein is identified. Normal No M protein is identified. [facility] Comment on above: Order Comment: Speci men Type: URINE SPECIMEN Ordering Facility: [facility] Address: [address] [place] [address] Performed By: #### L [id number] #### [facility] CLIA [id number] [address] [place] [address] [place] STAFF REVIEW (MPA) Reviewed by Yayo Babb M.D. Normal [facility] Comment on above: Order Comment: Speci men Type: URINE SPECIMEN Ordering Facility: [facility] Address: [address] [place] [address] Performed By: #### L [id number] #### [facility] CLIA [id number] [address] [place] [address] [place] IMMUNOGLOBULINS,IGG,IGA,IGMo n 06-20-2024 IgA [Mass/Vol] 302 mg/dL Normal 70-400 [facility] Comment on above: Order Comment: Speci men Type: URINE SPECIMEN Ordering Facility: [facility] Address: [address] [place] [address] Performed By: #### L [id number] #### [facility] CLIA [id number] [address] [place] [address] [place] IgG [Mass/Vol] 1134 mg/dL Normal 700-1600 [facility] Comment on above: Order Comment: Speci men Type: URINE SPECIMEN Ordering Facility: [facility] Address: [address] [place] [address] Performed By: #### L [id number] #### [facility] CLIA [id number] [address] [place] [address] [place] IgM [Mass/Vol] 89 mg/dL Normal 40-230 [facility] Comment on above: Order Comment: Speci men Type: URINE SPECIMEN Ordering Facility: [facility] Address: [address] [place] [address] Performed By: #### L [id number] #### [facility] CLIA [id number] [address] [place] [address] [place] Immunodeficiency panel FC (B ld)on 06-20-2024 CD3 cells (Bld) [#/Vol] 1833 cells/uL Normal 958-2388 [facility] Comment on above: Order Comment: Speci men Type: BLOOD SPECIMEN Ordering Facility: [facility] Address: [address] [place] [address] Performed By: #### 4 5268-0 #### [facility] CLIA [id number] [address] [place] [address] [place] CD3 cells/100 cells (Bld) 79 % Normal 60-89 [facility] Comment on above: Order Comment: Speci men Type: BLOOD SPECIMEN Ordering Facility: [facility] Address: [address] [place] [address] Performed By: #### 4 5268-0 #### [facility] CLIA [id number] [address] [place] [address] [place] CD3+CD4+ (T4 helper) cells (Bld) [#/Vol] 1298 cells/uL Normal 533-1674 [facility] Comment on above: Order Comment: Speci men Type: BLOOD SPECIMEN Ordering Facility: [facility] Address: [address] [place] [address] Performed By: #### 4 5268-0 #### [facility] CLIA [id number] [address] [place] [address] [place] CD3+CD4+ (T4 helper) cells/100 cells (Bld) 56 % Normal 34-61 [facility] Comment on above: Order Comment: Speci men Type: BLOOD SPECIMEN Ordering Facility: [facility] Address: [address] [place] [address] Performed By: #### 4 5268-0 #### [facility] CLIA [id number] [address] [place] [address] [place] CD3+CD4+ (T4 helper) cells/CD3+CD8+ (T8 suppressor cells) cells (Bld) [# ratio] 2.49 % Normal 1.10-3.25 [facility] Comment on above: Order Comment: Speci men Type: BLOOD SPECIMEN Ordering Facility: [facility] Address: [address] [place] [address] Performed By: #### 4 5268-0 #### [facility] CLIA [id number] [address] [place] [address] [place] CD3+CD8+ (T8 suppressor cells) cells (Bld) [#/Vol] 522 cells/uL Normal 175-958 [facility] Comment on above: Order Comment: Speci men Type: BLOOD SPECIMEN Ordering Facility: [facility] Address: [address] [place] [address] Performed By: #### 4 5268-0 #### [facility] CLIA [id number] [address] [place] [address] [place] CD3+CD8+ (T8 suppressor cells) cells/100 cells (Bld) 22 % Normal 10-41 [facility] Comment on above: Order Comment: Speci men Type: BLOOD SPECIMEN Ordering Facility: [facility] Address: [address] [place] [address] Performed By: #### 4 5268-0 #### [facility] CLIA [id number] [address] [place] [address] [place] CD3-CD16+CD56+ (Natural killer) cells (Bld) [#/Vol] 232 cells/uL Normal 102-565 [facility] Comment on above: Order Comment: Speci men Type: BLOOD SPECIMEN Ordering Facility: [facility] Address: [address] [place] [address] Performed By: #### 4 5268-0 #### [facility] CLIA [id number] [address] [place] [address] [place] CD3-CD16+CD56+ (Natural killer) cells/100 cells (Bld) 10 % Normal 5-25 [facility] Comment on above: Order Comment: Speci men Type: BLOOD SPECIMEN Ordering Facility: [facility] Address: [address] [place] [address] Performed By: #### 4 5268-0 #### [facility] CLIA [id number] [address] [place], [place] [address] [place] CD3-CD19+ cells (Bld) [#/Vol] 268 cells/uL Normal 75-660 [facility] Comment on above: Order Comment: Speci men Type: BLOOD SPECIMEN Ordering Facility: [facility] Address: [address] [place] [address] Performed By: #### 4 5268-0 #### [facility] CLIA [id number] [address] [place] [address] [place] CD3-CD19+ cells/100 cells (Bld) 11 % Normal 5-22 [facility] Comment on above: Order Comment: Speci men Type: BLOOD SPECIMEN Ordering Facility: [facility] Address: [address] [place] [address] Performed By: #### 4 5268-0 #### [facility] CLIA [id number] [address] [place] [address] [place],FREE,SERon 2024 Immunoglobulin light chains.kappa.free (S) [Mass/Vol] 30.2 mg/L High 3.3-19.4 [facility] Comment on above: Order Comment: Speci [facility] Type: BLOOD SPECIMEN Ordering Facility: [facility] Address: [address] [place] [address] Result Comment: Rare ly, increased serum free light chains levels may not be detected or accurately quantified due to prozone phenomenon or in high viscosity samples using this immunoturbidimetric assay. Correlation with other laboratory results and clinical findings is recommended. The [place] Free Light Chain was performed using the Binding Site Optilite immunoturbidimetric method. Result obtained with different assay methods or kits cannot be used interchangeably. Performed By: #### K LFRS #### [facility] CLIA [id number] [address] [place] [address] [place] Immunoglobulin light chains.kappa/Immunoglob ulin light chains.lambda (S) [Mass ratio] 1.27 Normal 0.26-1.65 [facility] Comment on above: Order Comment: Speci [facility] Type: BLOOD SPECIMEN Ordering Facility: [facility] Address: [address] [place] [address] Performed By: #### K LFRS #### [facility] CLIA [id number] [address] [place] [address] [place] Immunoglobulin light chains.lambda.free [Mass/Vol] 23.7 mg/L Normal 5.7-26.3 [facility] Comment on above: Order Comment: Speci men Type: BLOOD SPECIMEN Ordering Facility: [facility] Address: [address] [place] [address] Result Comment: Rare ly, increased serum free [...] interchangeably. Performed By: #### K LFRS #### [facility] CLIA [id number] [address] [place] [address] [place] MONOCLONAL PROT UR W/INTERPo n 06-20-2024 STAFF REVIEW ([place]) Reviewed by Yayo Babb M.D. Normal [facility] Comment on above: Order Comment: Speci men Type: URINE SPECIMEN Ordering Facility: [facility] Address: [address] [place] [address] Performed By: #### U RMPA #### [facility] CLIA [id number] [address] [place] [address] [place] UMPA RESULT No M protein is identified. Normal No M protein is identified. [facility] Comment on above: Order Comment: Speci men Type: URINE SPECIMEN Ordering Facility: [facility] Address: [address] [place] [address] Performed By: #### U RMPA #### [facility] CLIA [id number] [address] [place] [address] [place] PROTEIN ELECTROPHORESIS SERU M (P)on 06-20-2024 Albumin [Mass/Vol] 4.01 g/dL Normal 3.43-5.41 [facility] Comment on above: Order Comment: Speci men Type: URINE SPECIMEN Ordering Facility: [facility] Address: [address] [place] [address] Performed By: #### L [id number] #### [facility] CLIA [id number] [address] [place] [address] [place] Alpha 1 globulin Elph [Mass/Vol] 0.33 g/dL Normal 0.18-0.43 [facility] Comment on above: Order Comment: Speci men Type: URINE SPECIMEN Ordering Facility: [facility] Address: [address] [place] [address] Performed By: #### L [id number] #### [facility] CLIA [id number] [address] [place] [address] [place] Alpha 2 globulin Elph [Mass/Vol] 0.68 g/dL Normal 0.42-0.98 [facility] Comment on above: Order Comment: Speci men Type: URINE SPECIMEN Ordering Facility: [facility] Address: [address] [place] [address] Performed By: #### L [id number] #### [facility] CLIA [id number] [address] [place] [address] [place] Beta globulin Elph [Mass/Vol] 0.85 g/dL Normal 0.61-1.17 [facility] Comment on above: Order Comment: Speci men Type: URINE SPECIMEN Ordering Facility: [facility] Address: [address] [place] [address] Performed By: #### L [id number] #### [facility] CLIA [id number] [address] [place] [address] [place] Gamma globulin Elph [Mass/Vol] 1.02 g/dL Normal 0.53-1.51 [facility] Comment on above: Order Comment: Speci men Type: URINE SPECIMEN Ordering Facility: [facility] Address: [address] [place] [address] Performed By: #### L [id number] #### [facility] CLIA [id number] [address] [place] [address] [place] M-PROTEIN LOCATION Normal [facility] Comment on above: Order Comment: Speci men Type: URINE SPECIMEN Ordering Facility: [facility] Address: [address] [place] [address] Result Comment: Not Applicable. Performed By: #### L [id number] #### [facility] CLIA [id number] [address] [place] [address] [place] Protein Fractions [Interp] No definitive M protein is identified on protein electrophoresis. Normal No definitive M protein is identified on protein electrophor esis. [facility] Comment on above: Order Comment: Speci men Type: URINE SPECIMEN Ordering Facility: [facility] Address: [address] [place] [address] Performed By: #### L [id number] #### [facility] CLIA [id number] [address] [place] [address] [place] Protein.monoclonal Elph [Mass/Vol] 0.00 g/dL Normal <=0.00 [facility] Comment on above: Order Comment: Speci men Type: URINE SPECIMEN Ordering Facility: [facility] Address: [address] [place] [address] Performed By: #### L [id number] #### [facility] CLIA [id number] [address] [place] [address] [place] SPE STAFF REVIEW Reviewed by Yayo Babb M.D. Normal [facility] Comment on above: Order Comment: Speci men Type: URINE SPECIMEN Ordering Facility: [facility] Address: [address] [place] [address] Performed By: #### L [id number] #### [facility] CLIA [id number] [address] [place], [place] [address] [place] Prot SerPl-mCncon 06-20-2024 Protein [Mass/Vol] 6.9 g/dL Normal 6.3-8.0 [facility] Comment on above: Order Comment: Speci men Type: BLOOD SPECIMEN Ordering Facility: [facility] Address: [address] [place] [address] Performed By: #### 2 885-2 #### [facility] CLIA [id number] [address] [place] [address] [place] Prot Ur-mCncon 06-20-2024 Protein (U) [Mass/Vol] 25 mg/dL High 0-20 [facility] Comment on above: Order Comment: Speci men Type: URINE SPECIMEN Ordering Facility: [facility] Address: [address] [place] [address] Performed By: #### L [id number] #### [facility] CLIA [id number] [address] [place] [address] [place] URINE PROTEIN ELECTROPHORESI S RANDOM (P)on 06-20-2024 Albumin Elph (U) [Mass fraction] 46.23 % Normal [facility] Comment on above: Order Comment: Speci men Type: URINE SPECIMEN Ordering Facility: [facility] Address: [address] [place] [address] Performed By: #### L [id number] #### [facility] CLIA [id number] [address] [place] [address] [place] Alpha 1 globulin Elph (U) [Mass fraction] 4.64 % Normal [facility] Comment on above: Order Comment: Speci men Type: URINE SPECIMEN Ordering Facility: [facility] Address: [address] [place] [address] Performed By: #### L [id number] #### [facility] CLIA [id number] [address] [place] [address] [place] Alpha 2 globulin Elph (U) [Mass fraction] 15.66 % Normal [facility] Comment on above: Order Comment: Speci men Type: URINE SPECIMEN Ordering Facility: [facility] Address: [address] [place], [place] [address] Performed By: #### L [id number] #### [facility] CLIA [id number] [address] [place], [place] [address] [place] Beta globulin Elph (U) [Mass fraction] 19.44 % Normal [facility] Comment on above: Order Comment: Speci men Type: URINE SPECIMEN Ordering Facility: [facility] Address: [address] [place] [address] Performed By: #### L [id number] #### [facility] CLIA [id number] [address] [place] [address] [place] Gamma globulin Elph (U) [Mass fraction] 14.02 % Normal [facility] Comment on above: Order Comment: Speci men Type: URINE SPECIMEN Ordering Facility: [facility] Address: [address] [place] [address] Performed By: #### L [id number] #### [facility] CLIA [id number] [address] [place], [place] [address] [place] Protein Fractions Elph Minesh (U) [Interp] No definitive M protein is identified on protein electrophoresis. Normal No definitive M protein is identified on protein electrophor esis. [facility] Comment on above: Order Comment: Speci men Type: URINE SPECIMEN Ordering Facility: [facility] Address: [address] [place] [address] Performed By: #### L [id number] #### [facility] CLIA [id number] [address] [place], [place] [address] [facility] OF [place] STAFF REVIEW (URINE ELECTRO) Reviewed by Yayo Babb M.D. Normal [facility] Comment on above: Order Comment: Speci men Type: URINE SPECIMEN Ordering Facility: [facility] Address: [address] [place] [address] Performed By: #### L [id number] #### [facility] CLIA [id number] [facility] [address] [facility] Jamir 05-29-2024 ROMELIAN Telephone (ISELA) ----- MARSHDONNA Chandra ([id number]) 1955 F Date Time Provider Department 05/29/24 REGINA ODEN During your visit today, we recorded the following information about you: Daksha Tang 05/29/2024 3:05 PM Signed [facility] called stating that patient is back with them at this time. She is asking if patient needed a follow up with Dr. Oden. Patient was here in 2022. Please call Jeannie at [phone] Katalina You LPN 05/29/2024 3:46 PM Signed Called [facility] was placed on hold. Sent fax to nurses telling them we saw patient once in 2022 (then twice in 2009 prior for a different diagnosis). I asked them if there was a reason they thought she needed to be seen. Will await communication back from [facility]. NURY Cervantes Melanie, LPN 06/10/2024 9:38 AM [...] AM Addendum PSS- please contact [facility] [phone] to get patient scheduled for an est [...] - aspirin, (more content not included)... Normal [facility] Gastroenterology Visit Repor ton 05-29-2024 Gastroenterology Visit Report Normal [facility] Emergency Department Summary on 05-19-2024 Emergency Department Summary Normal [facility] Spine Lumbar without Contras ton 05-19-2024 Spine Lumbar without Contrast Normal [facility] Absolute neutrophil countOrd ered By: Anuja Murcia on 05-17-2024 Absolute neutrophil count 9.3 X10^3/uL High 2.0-7.7 [facility] Anion gap [Moles/Vol]Ordered By: Anuja Murcia on 05-17-2024 Anion gap in Serum or Plasma 13 5-15 [facility] BUN/creatinine ratioOrdered By: Anuja Murcia on 05-17-2024 BUN/creatinine ratio 18.8 RATIO - [facility] Basic Metabolic Profile (BMP )on 05-17-2024 BUN/CRE 18.8 RATIO Normal - [facility] Comment on above: Performed By: #### L 500.2500, L100.0100 ####[facility] [address] [place], [address] Calcium [Mass/Vol] 8.8 mg/dL Normal 7.6-11.0 [facility] Comment on above: Performed By: #### L 500.2500, L100.0100 ####[facility] [address] [place], [address] Chloride [Moles/Vol] 105 mmol/L Normal 98-108 [facility] Comment on above: Performed By: #### L 500.2500, L100.0100 ####[facility] [address] [place], [address] CO2 [Moles/Vol] 19.8 mmol/L Low 21.0-32.0 [facility] Comment on above: Performed By: #### L 500.2500, L100.0100 ####[facility] [address] [place], [address] Creatinine [Mass/Vol] 1.13 mg/dL Normal 0.70-1.20 [facility] Comment on above: Performed By: #### L 500.2500, L100.0100 ####[facility] [address] [place], [address] ECRCL 43.85 ml/min Low 50-250 [facility] Comment on above: Performed By: #### L 500.2500, L100.0100 ####[facility] [address] [place], [address] GAP 13 Normal -15 [facility] Comment on above: Performed By: #### L 500.2500, L100.0100 ####[facility] [address] [place], [address] GFR/1.73 sq M.predicted among non-blacks MDRD (S/P/Bld) [Vol rate/Area] 52 mL/min/{1.73_m2} Low >60 [facility] Comment on above: Result Comment: mL/m in/1.73m2 CKD-EPI Creatinine Equation (2020) Performed By: #### L 500.2500, L100.0100 ####[facility] [address] [place], [address] Glucose [Mass/Vol] 229 mg/dL High 70-99 [facility] Comment on above: Performed By: #### L 500.2500, L100.0100 ####[facility] [address] [place], [address] Potassium [Moles/Vol] 4.1 mmol/L Normal 3.3-5.1 [facility] Comment on above: Performed By: #### L 500.2500, L100.0100 ####[facility] [address] [place], [address] Sodium [Moles/Vol] 138 mmol/L Normal 133-145 [facility] Comment on above: Performed By: #### L 500.2500, L100.0100 ####[facility] [address] [place], [address] Urea nitrogen [Mass/Vol] 21 mg/dL High 4-19 [facility] Comment on above: Performed By: #### L 500.2500, L100.0100 ####[facility] [address] [place], [address] Basophil percentageOrdered B y: Anuja Murcia on 05-17-2024 Basophil percentage 0.2 % 0-1 [facility] Bedside Glucoseon 05-17-2024 FINGERSTICK GLU 199 mg/dL High 74-106 [facility] Comment on above: Result Comment: GERALDO GEMENT OF PATIENT CARE PER NURSING PROTOCOL Performed By: #### L 501.080 ####[facility] [address] [place], [address] FINGERSTICK GLU 190 mg/dL High 74-106 [facility] Comment on above: Result Comment: GERALDO GEMENT OF PATIENT CARE PER NURSING PROTOCOL Performed By: #### L 501.080 ####[facility] [address] [place], [address] CBC W/Diff, Automatedon Absolute Lymph 2.47 X10 3/uL Normal 0.83-4.51 [facility] Comment on above: Performed By: #### L 500.2500, L100.0100 ####[facility] [address] [place], [address] Absolute Neut 9.3 X10 3/uL High 2.0-7.7 [facility] Comment on above: Performed By: #### L 500.2500, L100.0100 ####[facility] [address] [place], [address] Basophils/100 WBC (Bld) 0.2 % Normal 0-1 [facility] Comment on above: Performed By: #### L 500.2500, L100.0100 ####[facility] [address] [place], [address] Eosinophils/100 WBC (Bld) 0.7 % Normal 0-5 [facility] Comment on above: Performed By: #### L 500.2500, L100.0100 ####[facility] [address] [place], [address] Erythrocyte distribution width (RBC) [Ratio] 13.9 % Normal 11.6-14.6 [facility] Comment on above: Performed By: #### L 500.2500, L100.0100 ####[facility] [address] [place], [address] Hematocrit (Bld) [Volume fraction] 36.3 % Low 37-47 [facility] Comment on above: Performed By: #### L 500.2500, L100.0100 ####[facility] [address] [place], [address] Hemoglobin (Bld) [Mass/Vol] 11.9 g/dL Low 12.0-15.0 [facility] Comment on above: Performed By: #### L 500.2500, L100.0100 ####[facility] [address] [place], [address] IG% 0.300 Normal 0.0-0.9 [facility] Comment on above: Result Comment: IG% - Immature Granulocytes (promyelocytes, myelocytes andmetamyelocytes) > 1% indicates that a LEFT SHIFT is Present. Performed By: #### L 500.2500, L100.0100 ####[facility] [address] [place], [address] Lymphocytes/100 WBC (Bld) 19.1 % Normal 19-41 [facility] Comment on above: Performed By: #### L 500.2500, L100.0100 ####[facility] [address] [place], [address] MCH (RBC) [Entitic mass] 29.2 pg Normal 27.0-32.0 [facility] Comment on above: Performed By: #### L 500.2500, L100.0100 ####[facility] [address] [place], [address] MCHC (RBC) [Mass/Vol] 32.8 g/dL Normal 32-36 [facility] Comment on above: Performed By: #### L 500.2500, L100.0100 ####[facility] [address] [place], [address] MCV (RBC) [Entitic vol] 89.0 fL Normal 81-99 [facility] Comment on above: Performed By: #### L 500.2500, L100.0100 ####[facility] [address] [place], [address] Monocytes/100 WBC (Bld) 8.0 % Normal 0-10 [facility] Comment on above: Performed By: #### L 500.2500, L100.0100 ####[facility] [address] [place], [address] Neutrophils/100 WBC (Bld) 71.7 % High 47-70 [facility] Comment on above: Performed By: #### L 500.2500, L100.0100 ####[facility] [address] [place], [address] Nucleated RBC (Bld) [#/Vol] 0 10*3/uL Normal 0-5 [facility] Comment on above: Performed By: #### L 500.2500, L100.0100 ####[facility] [address] [place], [address] Platelet mean volume (Bld) [Entitic vol] 10.1 fL Normal 6.2-12.0 [facility] Comment on above: Performed By: #### L 500.2500, L100.0100 ####[facility] [address] [place], [address] Platelets (Bld) [#/Vol] 249 10*3/uL Normal 150-450 [facility] Comment on above: Performed By: #### L 500.2500, L100.0100 ####[facility] [address] [place], [address] RBC (Bld) [#/Vol] 4.08 10*6/uL Low 4.2-5.4 [facility] Comment on above: Performed By: #### L 500.2500, L100.0100 ####[facility] [address] [place], [address] RDW SD 45.0 fl High 35.1-43.9 [facility] Comment on above: Performed By: #### L 500.2500, L100.0100 ####[facility] [address] [place], [address] WBC (Bld) [#/Vol] 13.0 10*3/uL High 4.4-11.0 [facility] Comment on above: Performed By: #### L 500.2500, L100.0100 ####[facility] [address] [place], [address] Calcium [Mass/Vol]Ordered By : Anuja Murcia on 05-17-2024 Serum or plasma calcium measurement (mass/volume) 8.8 mg/dL 7.6-11.0 [facility] Carbon dioxide, total [Moles /volume] in Central venous bloodOrdered By: Anuja Murcia on 05-17-2024 Carbon dioxide, total [Moles/volume] in Central venous blood 19.8 mmol/L Low 21.0-32.0 [facility] Chloride assayOrdered By: Pascual Murcia on 05-17-2024 Chloride assay 105 mmol/L 98-108 [facility] Creatinine Unsp time (U) [Ma ss/Vol]Ordered By: uSma Robertson on 05-17-2024 Random urine creatinine measurement (mass/volume) 21.70 mg/dL Low 28.00-217.0 0 [facility] Creatinine [Mass/Vol]Ordered By: Anuja Murcia on 05-17-2024 Serum creatinine measurement (mass/volume) 1.13 mg/dL 0.70-1.20 [facility] Emergency Department Summary on 05-17-2024 Emergency Department Summary Normal [facility] Eosinophil percentageOrdered By: Anuja Murcia on 05-17-2024 Eosinophil percentage 0.7 % 0-5 [facility] Erythrocyte distribution wid th (RBC) [Ratio]Ordered By: Anuja Murcia on 05-17-2024 Erythrocyte distribution width ratio 13.9 % 11.6-14.6 [facility] Erythrocyte distribution width standard deviation 45.0 fl High 35.1-43.9 [facility] Estimation of creatinine maribel aranceOrdered By: Anuja Murcia on 05-17-2024 Estimation of creatinine clearance 43.85 ml/min Low 50-250 [facility] GFR/1.73 sq M.predicted shorty g non-blacks MDRD (S/P/Bld) [Vol rate/Area]Ordered By: Anuja Murcia on 05-17-2024 Glomerular filtration rate (GFR) estimation/1.73 sq m using serum, plasma, or whole b 52 Low >60 [facility] Glucose [Mass/Vol]Ordered By : Anuja Murcia on 05-17-2024 Serum glucose measurement (mass/volume) 229 mg/dL High 70-99 [facility] Glucose measurement at bedsi deOrdered By: Anuja Murcia on 05-17-2024 Glucose measurement at bedside 199 mg/dL High 74-106 [facility] Hematocrit Auto (Bld) [Volum e fraction]Ordered By: Anuja Murcia on 05-17-2024 Automated blood hematocrit (percentage) 36.3 % Low 37-47 [facility] Hemoglobin measurementOrdere d By: Anuja Murcia on 05-17-2024 Hemoglobin measurement 11.9 g/dL Low 12.0-15.0 [facility] Immature granulocytes/100 WB C Auto (Bld)Ordered By: Anuja Murcia on 05-17-2024 Automated immature granulocyte percentage 0.300 % 0.0-0.9 [facility] Lymphocytes Auto (Unsp spec) [#/Vol]Ordered By: Anuja Murcia on 05-17-2024 Absolute lymphocyte count 2.47 X10^3/uL 0.83-4.51 [facility] Lymphocytes/100 WBC Auto (Un sp spec)Ordered By: Anuja Murcia on 05-17-2024 Automated lymphocyte count as percentage of total leukocytes 19.1 % 19-41 [facility] MCV (RBC) [Entitic vol]Order ed By: Anuja Murcia on 05-17-2024 MCV (mean corpuscular volume) determination 89.0 fL 81-99 [facility] Mean corpuscular hemoglobin (MCH) determinationOrdered By: Anuja Murcia on 05-17-2024 Mean corpuscular hemoglobin (MCH) determination 29.2 pg 27.0-32.0 [facility] Mean corpuscular hemoglobin concentration (MCHC) determinationOrdered By: Anuja Murcia on 05-17-2024 Mean corpuscular hemoglobin concentration (MCHC) determination 32.8 g/dL 32-36 [facility] Mean platelet volume determi nationOrdered By: Anuja Murcia on 05-17-2024 Mean platelet volume determination 10.1 fl 6.2-12.0 [facility] Monocyte percentageOrdered B y: Anuja Murcia on 05-17-2024 Monocyte percentage 8.0 % 0-10 [facility] Neutrophil percentageOrdered By: Anuja Murcia on 05-17-2024 Neutrophil percentage 71.7 % High 47-70 [facility] Nucleated red blood cell per centageOrdered By: Anuja Murcia on 05-17-2024 Nucleated red blood cell percentage 0 % 0-5 [facility] Platelet countOrdered By: Pascual Murcia on 05-17-2024 Platelet count 249 K/mm3 150-450 [facility] Potassium (Unsp spec) [Mass/ Vol]Ordered By: Anuja Murcia on 05-17-2024 Potassium measurement (mass/volume) 4.1 mmol/L 3.3-5.1 [facility] Protein (U) [Mass/Vol]Ordere d By: Suma Robertson on 05-17-2024 Urine protein measurement (mass/volume) 100.0 mg/dL High 0.0-12.0 [facility] Protein+Creatinine Ratio,Uri neon 05-17-2024 PROT:CRE RATIO 4608 mg/g CRE High 0-200 [facility] Comment on above: Order Comment: SENT LABEL TO PCU TO COLLECT Performed By: #### L 501.0919 ####[facility] [address] [place], [place], [id number] Protein (U) [Mass/Vol] 100.0 mg/dL High 0.0-12.0 [facility] Comment on above: Order Comment: SENT LABEL TO PCU TO COLLECT Performed By: #### L 501.0900 ####[facility] [address] [place], [address] UR CREAT 21.70 mg/dL Low 28.00-217.0 0 [facility] Comment on above: Order Comment: SENT LABEL TO PCU TO COLLECT Performed By: #### L 501.0900 ####[facility] [address] [place], [address] Protein/Creatinine (U) [Mass ratio]Ordered By: Suma Robertson on 05-17-2024 Urine protein/creatinine mass ratio 4608 mg/g CRE High 0-200 [facility] RBC Auto (Bld) [#/Vol]Ordere d By: Anuja Murcia on 05-17-2024 Automated blood erythrocyte count 4.08 M/mm3 Low 4.2-5.4 [facility] Sodium levelOrdered By: Abdirahman Murcia on 05-17-2024 Sodium level 138 mmol/L 133-145 [facility] Urea nitrogen [Mass/Vol]Orde red By: Anuja Murcia on 05-17-2024 Serum or plasma urea nitrogen measurement (mass/volume) 21 mg/dL High 4-19 [facility] White blood cell (WBC) count Ordered By: Anuja Murcia on 05-17-2024 White blood cell (WBC) count 13.0 K/mm3 High 4.4-11.0 [facility] 12 Lead EKGon 05-16-2024 12 Lead EKG Normal [facility] Basic Metabolic Profile (BMP )on 05-16-2024 BUN/CRE 17.8 RATIO Normal 10-20 [facility] Comment on above: Performed By: #### L 500.2500, L100.0100 ####[facility] [address] [place], [place], [address] Calcium [Mass/Vol] 8.1 mg/dL Normal 7.6-11.0 [facility] Comment on above: Performed By: #### L 500.2500, L100.0100 ####[facility] [address] [place], [address] Chloride [Moles/Vol] 113 mmol/L High 98-108 [facility] Comment on above: Performed By: #### L 500.2500, L100.0100 ####[facility] [address] [place], [address] CO2 [Moles/Vol] 17.8 mmol/L Low 21.0-32.0 [facility] Comment on above: Performed By: #### L 500.2500, L100.0100 ####[facility] [address] [place], [address] Creatinine [Mass/Vol] 0.97 mg/dL Normal 0.70-1.20 [facility] Comment on above: Performed By: #### L 500.2500, L100.0100 ####[facility] [address] [place], [address] ECRCL 51.63 ml/min Normal 50-250 [facility] Comment on above: Performed By: #### L 500.2500, L100.0100 ####[facility] [address] [place], [address] GAP 11 Normal 5-15 [facility] Comment on above: Performed By: #### L 500.2500, L100.0100 ####[facility] [address] [place], [address] GFR/1.73 sq M.predicted among non-blacks MDRD (S/P/Bld) [Vol rate/Area] 63 mL/min/{1.73_m2} Normal >60 [facility] Comment on above: Result Comment: mL/m in/1.73m2 CKD-EPI Creatinine Equation (2020) Performed By: #### L 500.2500, L100.0100 ####[facility] [address] [place], [address] Glucose [Mass/Vol] 145 mg/dL High 70-99 [facility] Comment on above: Performed By: #### L 500.2500, L100.0100 ####[facility] [address] [place], [address] Potassium [Moles/Vol] 3.2 mmol/L Low 3.3-5.1 [facility] Comment on above: Performed By: #### L 500.2500, L100.0100 ####[facility] [address] [place], [address] Sodium [Moles/Vol] 141 mmol/L Normal 133-145 [facility] Comment on above: Performed By: #### L 500.2500, L100.0100 ####[facility] [address] [place], [address] Urea nitrogen [Mass/Vol] 17 mg/dL Normal 4-19 [facility] Comment on above: Performed By: #### L 500.2500, L100.0100 ####[facility] [address] [place], [address] Bedside Glucoseon 05-16-2024 FINGERSTICK GLU 210 mg/dL High 74-106 [facility] Comment on above: Result Comment: GERALDO GEMENT OF PATIENT CARE PER NURSING PROTOCOL Performed By: #### L 501.080 ####[facility] [address] [place], [address] FINGERSTICK GLU 228 mg/dL High 74-106 [facility] Comment on above: Result Comment: GERALDO GEMENT OF PATIENT CARE PER NURSING PROTOCOL Performed By: #### L 501.080 ####[facility] [address] [place], [address] FINGERSTICK GLU 175 mg/dL High 74-106 [facility] Comment on above: Result Comment: GERALDO GEMENT OF PATIENT CARE PER NURSING PROTOCOL Performed By: #### L 501.080 ####[facility] [address] [place], [address] FINGERSTICK GLU 140 mg/dL High 74-106 [facility] Comment on above: Result Comment: GERALDO GEMENT OF PATIENT CARE PER NURSING PROTOCOL Performed By: #### L 501.080 ####[facility] [address] [place], [address] FINGERSTICK GLU 128 mg/dL High 74-106 [facility] Comment on above: Result Comment: GERALDO GEMENT OF PATIENT CARE PER NURSING PROTOCOL Performed By: #### L 501.080 ####[facility] [address] [place], [address] CBC W/Diff, Automatedon 04-0 4-2024 Absolute Lymph 2.22 X10 3/uL Normal 0.83-4.51 [facility] Comment on above: Performed By: #### L 500.2500, L100.0100 ####[facility] [address] [place], [address] Absolute Neut 6.7 X10 3/uL Normal 2.0-7.7 [facility] Comment on above: Performed By: #### L 500.2500, L100.0100 ####[facility] [address] [place], [address] Basophils/100 WBC (Bld) 0.2 % Normal 0-1 [facility] Comment on above: Performed By: #### L 500.2500, L100.0100 ####[facility] [address] [place], [address] Eosinophils/100 WBC (Bld) 2.4 % Normal 0-5 [facility] Comment on above: Performed By: #### L 500.2500, L100.0100 ####[facility] [address] [place], [address] Erythrocyte distribution width (RBC) [Ratio] 13.6 % Normal 11.6-14.6 [facility] Comment on above: Performed By: #### L 500.2500, L100.0100 ####[facility] [address] [place], [address] Hematocrit (Bld) [Volume fraction] 30.3 % Low 37-47 [facility] Comment on above: Performed By: #### L 500.2500, L100.0100 ####[facility] [address] [place], [address] Hemoglobin (Bld) [Mass/Vol] 9.8 g/dL Low 12.0-15.0 [facility] Comment on above: Performed By: #### L 500.2500, L100.0100 ####[facility] [address] [place], [address] IG% 0.600 Normal 0.0-0.9 [facility] Comment on above: Result Comment: IG% - Immature Granulocytes (promyelocytes, myelocytes andmetamyelocytes) > 1% indicates that a LEFT SHIFT is Present. Performed By: #### L 500.2500, L100.0100 ####[facility] [address] [place], [address] Lymphocytes/100 WBC (Bld) 22.2 % Normal 19-41 [facility] Comment on above: Performed By: #### L 500.2500, L100.0100 ####[facility] [address] [place], [address] MCH (RBC) [Entitic mass] 29.2 pg Normal 27.0-32.0 [facility] Comment on above: Performed By: #### L 500.2500, L100.0100 ####[facility] [address] [place], [address] MCHC (RBC) [Mass/Vol] 32.3 g/dL Normal 32-36 [facility] Comment on above: Performed By: #### L 500.2500, L100.0100 ####[facility] [address] [place], [address] MCV (RBC) [Entitic vol] 90.2 fL Normal 81-99 [facility] Comment on above: Performed By: #### L 500.2500, L100.0100 ####[facility] [address] [place], [address] Monocytes/100 WBC (Bld) 8.0 % Normal 0-10 [facility] Comment on above: Performed By: #### L 500.2500, L100.0100 ####[facility] [address] [place], [address] Neutrophils/100 WBC (Bld) 66.6 % Normal 47-70 [facility] Comment on above: Performed By: #### L 500.2500, L100.0100 ####[facility] [address] [place], [address] Nucleated RBC (Bld) [#/Vol] 0 10*3/uL Normal 0-5 [facility] Comment on above: Performed By: #### L 500.2500, L100.0100 ####[facility] [address] [place], [address] Platelet mean volume (Bld) [Entitic vol] 10.2 fL Normal 6.2-12.0 [facility] Comment on above: Performed By: #### L 500.2500, L100.0100 ####[facility] [address] [place], [address] Platelets (Bld) [#/Vol] 179 10*3/uL Normal 150-450 [facility] Comment on above: Performed By: #### L 500.2500, L100.0100 ####[facility] [address] [place], [address] RBC (Bld) [#/Vol] 3.36 10*6/uL Low 4.2-5.4 [facility] Comment on above: Performed By: #### L 500.2500, L100.0100 ####[facility] [address] [place], [address] RDW SD 44.9 fl High 35.1-43.9 [facility] Comment on above: Performed By: #### L 500.2500, L100.0100 ####[facility] [address] [place], [address] WBC (Bld) [#/Vol] 10.0 10*3/uL Normal 4.4-11.0 [facility] Comment on above: Performed By: #### L 500.2500, L100.0100 ####[facility] [address] [place], [address] Chest PA and Lateralon 05-16 Chest PA and Lateral Normal [facility] L499.0042on 05-16-2024 Trop T High Sen 18 ng/L High <=14 [facility] Comment on above: Performed By: #### L 499.0042 ####[facility] [address] [place], [address] L499.0043on 05-16-2024 Trop T High Sen 18 ng/L High <=14 [facility] Comment on above: Performed By: #### L 499.0043 ####[facility] [address] [place], [address] L501.4021on 05-16-2024 Trop T High Sen 17 ng/L High <=14 [facility] Comment on above: Performed By: #### L 501.4021 ####[facility] [address] [place], [address] Troponin T.cardiac High sens itivity method [Mass/Vol]Ordered By: Anuja Murcia on 05-16-2024 Troponin T.cardiac [Mass/volume] in Serum or Plasma by High sensitivity method 18 ng/L High <14 [facility] Troponin T.cardiac [Mass/volume] in Serum or Plasma by High sensitivity method 18 ng/L High <14 [facility] Troponin T.cardiac [Mass/volume] in Serum or Plasma by High sensitivity method 17 ng/L High <14 [facility] Basic Metabolic Profile (BMP )on 05-15-2024 BUN/CRE 15.8 RATIO Normal 10-20 [facility] Comment on above: Performed By: #### L 501.2300, L501.5200, L500.2500, L100.0100 ####[facility] [address] [place], [address] Calcium [Mass/Vol] 7.9 mg/dL Normal 7.6-11.0 [facility] Comment on above: Performed By: #### L 501.2300, L501.5200, L500.2500, L100.0100 ####[facility] [address] [place], [address] Chloride [Moles/Vol] 108 mmol/L Normal 98-108 [facility] Comment on above: Performed By: #### L 501.2300, L501.5200, L500.2500, L100.0100 ####[facility] [address] [place], [address] CO2 [Moles/Vol] 17.6 mmol/L Low 21.0-32.0 [facility] Comment on above: Performed By: #### L 501.2300, L501.5200, L500.2500, L100.0100 ####[facility] [address] [place], [address] Creatinine [Mass/Vol] 1.84 mg/dL High 0.70-1.20 [facility] Comment on above: Performed By: #### L 501.2300, L501.5200, L500.2500, L100.0100 ####[facility] [address] [place], [address] ECRCL 27.49 ml/min Low 50-250 [facility] Comment on above: Performed By: #### L 501.2300, L501.5200, L500.2500, L100.0100 ####[facility] [address] [place], [address] GAP 11 Normal 5-15 [facility] Comment on above: Performed By: #### L 501.2300, L501.5200, L500.2500, L100.0100 ####[facility] [address] [place], [address] GFR/1.73 sq M.predicted among non-blacks MDRD (S/P/Bld) [Vol rate/Area] 29 mL/min/{1.73_m2} Low >60 [facility] Comment on above: Result Comment: mL/m in/1.73m2 CKD-EPI Creatinine Equation (2020) Performed By: #### L 501.2300, L501.5200, L500.2500, L100.0100 ####[facility] [id number] [place], [address] Glucose [Mass/Vol] 109 mg/dL High 70-99 [facility] Comment on above: Performed By: #### L 501.2300, L501.5200, L500.2500, L100.0100 ####[facility] [id number] [place], [address] Potassium [Moles/Vol] 3.3 mmol/L Normal 3.3-5.1 [facility] Comment on above: Performed By: #### L 501.2300, L501.5200, L500.2500, L100.0100 ####[facility] [id number] [place], [address] Sodium [Moles/Vol] 137 mmol/L Normal 133-145 [facility] Comment on above: Performed By: #### L 501.2300, L501.5200, L500.2500, L100.0100 ####[facility] [id number] [place], [address] Urea nitrogen [Mass/Vol] 29 mg/dL High 4-19 [facility] Comment on above: Performed By: #### L 501.2300, L501.5200, L500.2500, L100.0100 ####[facility] [id number] [place], [address] Bedside Glucoseon 05-15-2024 FINGERSTICK GLU 130 mg/dL High 74-106 [facility] Comment on above: Result Comment: GERALDO GEMENT OF PATIENT CARE PER NURSING PROTOCOL Performed By: #### L 501.080 ####[facility] [address] [place], [address] FINGERSTICK GLU 158 mg/dL High 74-106 [facility] Comment on above: Result Comment: GERALDO GEMENT OF PATIENT CARE PER NURSING PROTOCOL Performed By: #### L 501.080 ####[facility] [address] [place], [address] FINGERSTICK GLU 156 mg/dL High 74-106 [facility] Comment on above: Result Comment: GERALDO GEMENT OF PATIENT CARE PER NURSING PROTOCOL Performed By: #### L 501.080 ####[facility] [address] [place], [address] FINGERSTICK GLU 92 mg/dL Normal 74-106 [facility] Comment on above: Result Comment: GERALDO GEMENT OF PATIENT CARE PER NURSING PROTOCOL Performed By: #### L 501.080 ####[facility] [address] [place], [address] CBC W/Diff, Automatedon 04-0 3-2024 Absolute Lymph 2.98 X10 3/uL Normal 0.83-4.51 [facility] Comment on above: Performed By: #### L 501.2300, L501.5200, L500.2500, L100.0100 ####[facility] [address] [place], [address] Absolute Neut 5.8 X10 3/uL Normal 2.0-7.7 [facility] Comment on above: Performed By: #### L 501.2300, L501.5200, L500.2500, L100.0100 ####[facility] [address] [place], [address] Basophils/100 WBC (Bld) 0.3 % Normal 0-1 [facility] Comment on above: Performed By: #### L 501.2300, L501.5200, L500.2500, L100.0100 ####[facility] [address] [place], [address] Eosinophils/100 WBC (Bld) 4.7 % Normal 0-5 [facility] Comment on above: Performed By: #### L 501.2300, L501.5200, L500.2500, L100.0100 ####[facility] [address] [place], [address] Erythrocyte distribution width (RBC) [Ratio] 13.9 % Normal 11.6-14.6 [facility] Comment on above: Performed By: #### L 501.2300, L501.5200, L500.2500, L100.0100 ####[facility] [address] [place], [address] Hematocrit (Bld) [Volume fraction] 29.6 % Low 37-47 [facility] Comment on above: Performed By: #### L 501.2300, L501.5200, L500.2500, L100.0100 ####[facility] [address] [place], [address] Hemoglobin (Bld) [Mass/Vol] 9.6 g/dL Low 12.0-15.0 [facility] Comment on above: Performed By: #### L 501.2300, L501.5200, L500.2500, L100.0100 ####[facility] [address] [place], [address] IG% 0.400 Normal 0.0-0.9 [facility] Comment on above: Result Comment: IG% - Immature Granulocytes (promyelocytes, myelocytes andmetamyelocytes) > 1% indicates that a LEFT SHIFT is Present. Performed By: #### L 501.2300, L501.5200, L500.2500, L100.0100 ####[facility] [address] [place], [address] Lymphocytes/100 WBC (Bld) 30.1 % Normal 19-41 [facility] Comment on above: Performed By: #### L 501.2300, L501.5200, L500.2500, L100.0100 ####[facility] [address] [place], [address] MCH (RBC) [Entitic mass] 29.0 pg Normal 27.0-32.0 [facility] Comment on above: Performed By: #### L 501.2300, L501.5200, L500.2500, L100.0100 ####[facility] [address] [place], [address] MCHC (RBC) [Mass/Vol] 32.4 g/dL Normal 32-36 [facility] Comment on above: Performed By: #### L 501.2300, L501.5200, L500.2500, L100.0100 ####[facility] [address] [place], [address] MCV (RBC) [Entitic vol] 89.4 fL Normal 81-99 [facility] Comment on above: Performed By: #### L 501.2300, L501.5200, L500.2500, L100.0100 ####[facility] [address] [place], [address] Monocytes/100 WBC (Bld) 6.3 % Normal 0-10 [facility] Comment on above: Performed By: #### L 501.2300, L501.5200, L500.2500, L100.0100 ####[facility] [address] [place], [address] Neutrophils/100 WBC (Bld) 58.2 % Normal 47-70 [facility] Comment on above: Performed By: #### L 501.2300, L501.5200, L500.2500, L100.0100 ####[facility] [address] [place], [address] Nucleated RBC (Bld) [#/Vol] 0 10*3/uL Normal 0-5 [facility] Comment on above: Performed By: #### L 501.2300, L501.5200, L500.2500, L100.0100 ####[facility] [address] [place], [address] Platelet mean volume (Bld) [Entitic vol] 10.0 fL Normal 6.2-12.0 [facility] Comment on above: Performed By: #### L 501.2300, L501.5200, L500.2500, L100.0100 ####[facility] [address] [place], [address] Platelets (Bld) [#/Vol] 168 10*3/uL Normal 150-450 [facility] Comment on above: Performed By: #### L 501.2300, L501.5200, L500.2500, L100.0100 ####[facility] [address] [place], [address] RBC (Bld) [#/Vol] 3.31 10*6/uL Low 4.2-5.4 [facility] Comment on above: Performed By: #### L 501.2300, L501.5200, L500.2500, L100.0100 ####[facility] [address] [place], [address] RDW SD 45.4 fl High 35.1-43.9 [facility] Comment on above: Performed By: #### L 501.2300, L501.5200, L500.2500, L100.0100 ####[facility] [address] [place], [address] WBC (Bld) [#/Vol] 9.9 10*3/uL Normal 4.4-11.0 [facility] Comment on above: Performed By: #### L 501.2300, L501.5200, L500.2500, L100.0100 ####[facility] [address] [place], [address] Consultation - Nephrologyon 05-15-2024 Consultation - Nephrology Normal [facility] Magnesiumon 05-15-2024 Magnesium [Mass/Vol] 1.6 mg/dL Normal 1.5-2.2 [facility] Comment on above: Performed By: #### L 501.2300, L501.5200, L500.2500, L100.0100 ####[facility] [address] [place], [address] Magnesium (Unsp spec) [Mass/ Vol]Ordered By: Anuja Murcia on 05-15-2024 Magnesium measurement (mass/volume) 1.6 mg/dL 1.5-2.2 [facility] Phosphoruson 05-15-2024 Phosphate [Mass/Vol] 3.6 mg/dL Normal 2.7-4.5 [facility] Comment on above: Performed By: #### L 501.2300, L501.5200, L500.2500, L100.0100 ####[facility] [address] [place], [address] Serum phosphorus measurement Ordered By: Anuja Murcia on 05-15-2024 Serum phosphorus measurement 3.6 mg/dL 2.7-4.5 [facility] ALP [Catalytic activity/Vol] Ordered By: Kanwal Lauren on 05-14-2024 Serum or plasma alkaline phosphatase measurement 100 U/L 35-104 [facility] ALT [Catalytic activity/Vol] Ordered By: [facility] Lauren on 05-14-2024 Serum or plasma alanine aminotransferase (ALT) measurement 10 U/L <35 [facility] Albumin [Mass/Vol]Ordered By : Kanwal Aguilar on 05-14-2024 Serum or plasma albumin measurement (mass/volume) 3.7 g/dL 3.4-4.8 [facility] Albumin/Globulin [Mass ratio ]Ordered By: Kanwal Lauren on 05-14-2024 Serum or plasma albumin/globulin mass ratio 1.4 RATIO 0.9-2.4 [facility] Bedside Glucoseon 05-14-2024 FINGERSTICK GLU 131 mg/dL High 74-106 [facility] Comment on above: Result Comment: GERALDO GEMENT OF PATIENT CARE PER NURSING PROTOCOL Performed By: #### L 501.080 ####[facility] [address] [place], [address] FINGERSTICK GLU 204 mg/dL High 74-106 [facility] Comment on above: Result Comment: GERALDO GEMENT OF PATIENT CARE PER NURSING PROTOCOL Performed By: #### L 501.080 ####[facility] [address] [place], [address] FINGERSTICK GLU 225 mg/dL High 74-106 [facility] Comment on above: Result Comment: GERALDO GEMENT OF PATIENT CARE PER NURSING PROTOCOL Performed By: #### L 501.080 ####[facility] [address] [place], [address] FINGERSTICK GLU 254 mg/dL High 74-106 [facility] Comment on above: Result Comment: GERALDO GEMENT OF PATIENT CARE PER NURSING PROTOCOL Performed By: #### L 501.080 ####[facility] [address] [place], [address] FINGERSTICK GLU 350 mg/dL High 74-106 [facility] Comment on above: Result Comment: GERALDO GEMENT OF PATIENT CARE PER NURSING PROTOCOL Performed By: #### L 501.080 ####[facility] [address] [place], [address] Bilirubin, totalOrdered By: Kanwal Aguilar on 05-14-2024 Bilirubin, total 0.62 mg/dL 0.00-1.30 [facility] CBC W/Diff, Automatedon Absolute Lymph 1.20 X10 3/uL Normal 0.83-4.51 [facility] Comment on above: Performed By: #### L 500.4050, L100.0100 ####[facility] [address] [place], [address] Absolute Neut 12.3 X10 3/uL High 2.0-7.7 [facility] Comment on above: Performed By: #### L 500.4050, L100.0100 ####[facility] [address] [place], [address] Basophils/100 WBC (Bld) 0.1 % Normal 0-1 [facility] Comment on above: Performed By: #### L 500.4050, L100.0100 ####[facility] [address] [place], [address] Eosinophils/100 WBC (Bld) 0.1 % Normal 0-5 [facility] Comment on above: Performed By: #### L 500.4050, L100.0100 ####[facility] [address] [place], [address] Erythrocyte distribution width (RBC) [Ratio] 13.5 % Normal 11.6-14.6 [facility] Comment on above: Performed By: #### L 500.4050, L100.0100 ####[facility] [address] [place], [address] Hematocrit (Bld) [Volume fraction] 39.9 % Normal 37-47 [facility] Comment on above: Performed By: #### L 500.4050, L100.0100 ####[facility] [address] [place], [address] Hemoglobin (Bld) [Mass/Vol] 13.0 g/dL Normal 12.0-15.0 [facility] Comment on above: Performed By: #### L 500.4050, L100.0100 ####[facility] [address] [place], [address] IG% 0.500 Normal 0.0-0.9 [facility] Comment on above: Result Comment: IG% - Immature Granulocytes (promyelocytes, myelocytes andmetamyelocytes) > 1% indicates that a LEFT SHIFT is Present. Performed By: #### L 500.4050, L100.0100 ####[facility] [address] [place], [address] Lymphocytes/100 WBC (Bld) 8.3 % Low 19-41 [facility] Comment on above: Performed By: #### L 500.4050, L100.0100 ####[facility] [address] [place], [address] MCH (RBC) [Entitic mass] 28.7 pg Normal 27.0-32.0 [facility] Comment on above: Performed By: #### L 500.4050, L100.0100 ####[facility] [address] [place], [address] MCHC (RBC) [Mass/Vol] 32.6 g/dL Normal 32-36 [facility] Comment on above: Performed By: #### L 500.4050, L100.0100 ####[facility] [address] [place], [address] MCV (RBC) [Entitic vol] 88.1 fL Normal 81-99 [facility] Comment on above: Performed By: #### L 500.4050, L100.0100 ####[facility] [address] [place], [address] Monocytes/100 WBC (Bld) 6.4 % Normal 0-10 [facility] Comment on above: Performed By: #### L 500.4050, L100.0100 ####[facility] [address] [place], [address] Neutrophils/100 WBC (Bld) 84.6 % High 47-70 [facility] Comment on above: Performed By: #### L 500.4050, L100.0100 ####[facility] [address] [place], [address] Nucleated RBC (Bld) [#/Vol] 0 10*3/uL Normal 0-5 [facility] Comment on above: Performed By: #### L 500.4050, L100.0100 ####[facility] [address] [place], [address] Platelet mean volume (Bld) [Entitic vol] 9.6 fL Normal 6.2-12.0 [facility] Comment on above: Performed By: #### L 500.4050, L100.0100 ####[facility] [address] [place], [address] Platelets (Bld) [#/Vol] 286 10*3/uL Normal 150-450 [facility] Comment on above: Performed By: #### L 500.4050, L100.0100 ####[facility] [address] [place], [address] RBC (Bld) [#/Vol] 4.53 10*6/uL Normal 4.2-5.4 [facility] Comment on above: Performed By: #### L 500.4050, L100.0100 ####[facility] [address] [place], [address] RDW SD 43.6 fl Normal 35.1-43.9 [facility] Comment on above: Performed By: #### L 500.4050, L100.0100 ####[facility] [address] [place], [address] WBC (Bld) [#/Vol] 14.5 10*3/uL High 4.4-11.0 [facility] Comment on above: Performed By: #### L 500.4050, L100.0100 ####[facility] [address] [place], [address] Comprehensive Metabolic Prof ilon 05-14-2024 Albumin [Mass/Vol] 3.7 g/dL Normal 3.4-4.8 [facility] Comment on above: Performed By: #### L 500.4050, L100.0100 ####[facility] [address] [place], [address] Albumin/Globulin [Mass ratio] 1.4 {ratio} Normal 0.9-2.4 [facility] Comment on above: Performed By: #### L 500.4050, L100.0100 ####[facility] [address] [place], [address] ALK PHOS 100 U/L Normal 35-104 [facility] Comment on above: Performed By: #### L 500.4050, L100.0100 ####[facility] [address] [place], [address] ALT [Catalytic activity/Vol] 10 U/L Normal <=34 [facility] Comment on above: Performed By: #### L 500.4050, L100.0100 ####[facility] [address] [place], [address] AST [Catalytic activity/Vol] 21 U/L Normal <=31 [facility] Comment on above: Performed By: #### L 500.4050, L100.0100 ####[facility] [address] [place], [address] Bilirubin [Mass/Vol] 0.62 mg/dL Normal 0.00-1.30 [facility] Comment on above: Performed By: #### L 500.4050, L100.0100 ####[facility] [address] [place], [address] BUN/CRE 12.7 RATIO Normal 10-20 [facility] Comment on above: Performed By: #### L 500.4050, L100.0100 ####[facility] [address] [place], [address] Calcium [Mass/Vol] 8.8 mg/dL Normal 7.6-11.0 [facility] Comment on above: Performed By: #### L 500.4050, L100.0100 ####[facility] [address] [place], [address] Chloride [Moles/Vol] 103 mmol/L Normal 98-108 [facility] Comment on above: Performed By: #### L 500.4050, L100.0100 ####[facility] [address] [place], [address] CO2 [Moles/Vol] 16.4 mmol/L Low 21.0-32.0 [facility] Comment on above: Performed By: #### L 500.4050, L100.0100 ####[facility] [address] [place], [address] Creatinine [Mass/Vol] 1.79 mg/dL High 0.70-1.20 [facility] Comment on above: Performed By: #### L 500.4050, L100.0100 ####[facility] [address] [place], [address] ECRCL 26.43 ml/min Low 50-250 [facility] Comment on above: Performed By: #### L 500.4050, L100.0100 ####[facility] [address] [place], [address] GAP 15 Normal 5-15 [facility] Comment on above: Performed By: #### L 500.4050, L100.0100 ####[facility] [address] [place], [address] GFR/1.73 sq M.predicted among non-blacks MDRD (S/P/Bld) [Vol rate/Area] 30 mL/min/{1.73_m2} Low >60 [facility] Comment on above: Result Comment: mL/m in/1.73m2 CKD-EPI Creatinine Equation (2020) Performed By: #### L 500.4050, L100.0100 ####[facility] [address] [place], [address] Globulin (S) [Mass/Vol] 2.8 g/dL Normal 2.2-4.2 [facility] Comment on above: Performed By: #### L 500.4050, L100.0100 ####[facility] [address] [place], [address] Glucose [Mass/Vol] 267 mg/dL High 70-99 [facility] Comment on above: Performed By: #### L 500.4050, L100.0100 ####[facility] [address] [place], [address] Potassium [Moles/Vol] 3.6 mmol/L Normal 3.3-5.1 [facility] Comment on above: Performed By: #### L 500.4050, L100.0100 ####[facility] [address] [place], [address] Sodium [Moles/Vol] 134 mmol/L Normal 133-145 [facility] Comment on above: Performed By: #### L 500.4050, L100.0100 ####[facility] [address] [place], [address] T PROT 6.5 g/dL Normal 5.9-8.4 [facility] Comment on above: Performed By: #### L 500.4050, L100.0100 ####[facility] [address] [place], [address] Urea nitrogen [Mass/Vol] 23 mg/dL High 4-19 [facility] Comment on above: Performed By: #### L 500.4050, L100.0100 ####[facility] [address] [place], [address] Kidney and Bladderon 025 [address] [facility] No Panel InformationOrdered By: Kanwal Aguilar on 05-14-2024 21 U/L <32 [facility] Serum globulin measurementOr dered By: Kanwal Aguilar on 05-14-2024 Serum globulin measurement 2.8 g/dL 2.2-4.2 [facility] Total proteinOrdered By: Luciana Aguilar on 05-14-2024 Total protein 6.5 g/dL 5.9-8.4 [facility] Absolute neutrophil countOrd ered By: Adria Montenegro on 05-13-2024 Absolute neutrophil count 15.0 X10^3/uL High 2.0-7.7 [facility] Anion gap [Moles/Vol]Ordered By: Adria Montenegro on 05-13-2024 Anion gap in Serum or Plasma 21 High 5-15 [facility] BUN/creatinine ratioOrdered By: Adria Montenegro on 05-13-2024 BUN/creatinine ratio 14.7 RATIO 10-20 [facility] Basic Metabolic Profile (BMP )on 05-13-2024 BUN/CRE 14.7 RATIO Normal 10-20 [facility] Comment on above: Performed By: #### L 100.0100, L500.2500 ####[facility] [address] [place], [address] Calcium [Mass/Vol] 9.6 mg/dL Normal 7.6-11.0 [facility] Comment on above: Performed By: #### L 100.0100, L500.2500 ####[facility] [address] [place], [address] Chloride [Moles/Vol] 103 mmol/L Normal 98-108 [facility] Comment on above: Performed By: #### L 100.0100, L500.2500 ####[facility] [address] [place], [address] CO2 [Moles/Vol] 13.8 mmol/L Low 21.0-32.0 [facility] Comment on above: Performed By: #### L 100.0100, L500.2500 ####[facility] [address] [place], [address] Creatinine [Mass/Vol] 1.13 mg/dL Normal 0.70-1.20 [facility] Comment on above: Performed By: #### L 100.0100, L500.2500 ####[facility] [address] [place], [address] ECRCL 45.46 ml/min Low 50-250 [facility] Comment on above: Performed By: #### L 100.0100, L500.2500 ####[facility] [address] [place], [address] GAP 21 High 5-15 [facility] Comment on above: Performed By: #### L 100.0100, L500.2500 ####[facility] [address] [place], [address] GFR/1.73 sq M.predicted among non-blacks MDRD (S/P/Bld) [Vol rate/Area] 52 mL/min/{1.73_m2} Low >60 [facility] Comment on above: Result Comment: mL/m in/1.73m2 CKD-EPI Creatinine Equation (2020) Performed By: #### L 100.0100, L500.2500 ####[facility] [address] [place], [address] Glucose [Mass/Vol] 177 mg/dL High 70-99 [facility] Comment on above: Performed By: #### L 100.0100, L500.2500 ####[facility] [address] [place], [address] Potassium [Moles/Vol] 3.8 mmol/L Normal 3.3-5.1 [facility] Comment on above: Result Comment: Hemo lysis present, Results??could be affected.?? Performed By: #### L 100.0100, L500.2500 ####[facility] [address] [place], [address] Sodium [Moles/Vol] 137 mmol/L Normal 133-145 [facility] Comment on above: Performed By: #### L 100.0100, L500.2500 ####[facility] [address] [place], [address] Urea nitrogen [Mass/Vol] 17 mg/dL Normal 4-19 [facility] Comment on above: Performed By: #### L 100.0100, L500.2500 ####[facility] [address] [place], [address] Brain/Head without Contrasto n 05-13-2024 Brain/Head without Contrast Normal [facility] CBC W/Diff, Automatedon 04-0 1-2025 Absolute Lymph 0.85 X10 3/uL Normal 0.83-4.51 [facility] Comment on above: Performed By: #### L 100.0100, L500.2500 ####[facility] [address] [place], [address] Absolute Neut 15.0 X10 3/uL High 2.0-7.7 [facility] Comment on above: Performed By: #### L 100.0100, L500.2500 ####[facility] [address] [place], [address] Basophils/100 WBC (Bld) 0.1 % Normal 0-1 [facility] Comment on above: Performed By: #### L 100.0100, L500.2500 ####[facility] [address] [place], [address] Eosinophils/100 WBC (Bld) 0.1 % Normal 0-5 [facility] Comment on above: Performed By: #### L 100.0100, L500.2500 ####[facility] [address] [place], [address] Erythrocyte distribution width (RBC) [Ratio] 13.2 % Normal 11.6-14.6 [facility] Comment on above: Performed By: #### L 100.0100, L500.2500 ####[facility] [address] [place], [address] Hematocrit (Bld) [Volume fraction] 41.4 % Normal 37-47 [facility] Comment on above: Performed By: #### L 100.0100, L500.2500 ####[facility] [address] [place], [address] Hemoglobin (Bld) [Mass/Vol] 13.9 g/dL Normal 12.0-15.0 [facility] Comment on above: Performed By: #### L 100.0100, L500.2500 ####[facility] [address] [place], [address] IG% 0.800 Normal 0.0-0.9 [facility] Comment on above: Result Comment: IG% - Immature Granulocytes (promyelocytes, myelocytes andmetamyelocytes) > 1% indicates that a LEFT SHIFT is Present. Performed By: #### L 100.0100, L500.2500 ####[facility] [address] [place], [address] Lymphocytes/100 WBC (Bld) 5.0 % Low 19-41 [facility] Comment on above: Performed By: #### L 100.0100, L500.2500 ####[facility] [address] [place], [address] MCH (RBC) [Entitic mass] 29.1 pg Normal 27.0-32.0 [facility] Comment on above: Performed By: #### L 100.0100, L500.2500 ####[facility] [address] [place], [address] MCHC (RBC) [Mass/Vol] 33.6 g/dL Normal 32-36 [facility] Comment on above: Performed By: #### L 100.0100, L500.2500 ####[facility] [address] [place], [address] MCV (RBC) [Entitic vol] 86.6 fL Normal 81-99 [facility] Comment on above: Performed By: #### L 100.0100, L500.2500 ####[facility] [address] [place], [address] Monocytes/100 WBC (Bld) 6.1 % Normal 0-10 [facility] Comment on above: Performed By: #### L 100.0100, L500.2500 ####[facility] [address] [place], [address] Neutrophils/100 WBC (Bld) 87.9 % High 47-70 [facility] Comment on above: Performed By: #### L 100.0100, L500.2500 ####[facility] [address] [place], [address] Nucleated RBC (Bld) [#/Vol] 0 10*3/uL Normal 0-5 [facility] Comment on above: Performed By: #### L 100.0100, L500.2500 ####[facility] [address] [place], [address] Platelet mean volume (Bld) [Entitic vol] 9.4 fL Normal 6.2-12.0 [facility] Comment on above: Performed By: #### L 100.0100, L500.2500 ####[facility] [address] [place], [address] Platelets (Bld) [#/Vol] 296 10*3/uL Normal 150-450 [facility] Comment on above: Performed By: #### L 100.0100, L500.2500 ####[facility] [address] [place], [address] RBC (Bld) [#/Vol] 4.78 10*6/uL Normal 4.2-5.4 [facility] Comment on above: Performed By: #### L 100.0100, L500.2500 ####[facility] [address] [place], [address] RDW SD 41.1 fl Normal 35.1-43.9 [facility] Comment on above: Performed By: #### L 100.0100, L500.2500 ####[facility] [address] [place], [address] WBC (Bld) [#/Vol] 17.0 10*3/uL High 4.4-11.0 [facility] Comment on above: Performed By: #### L 100.0100, L500.2500 ####[facility] [address] [place], [address] Calcium [Mass/Vol]Ordered By : Adria Montenegro on 05-13-2024 Serum or plasma calcium measurement (mass/volume) 9.6 mg/dL 7.6-11.0 [facility] Carbon dioxide, total [Moles /volume] in Central venous bloodOrdered By: Adria Montenegro on 05-13-2024 Carbon dioxide, total [Moles/volume] in Central venous blood 13.8 mmol/L Low 21.0-32.0 [facility] Chloride assayOrdered By: Oscar Montenegro on 05-13-2024 Chloride assay 103 mmol/L 98-108 [facility] Clarity (U)Ordered By: Adria Montenegro on 05-13-2024 Urine clarity Clear Clear [facility] Color (U)Ordered By: Adria campos on 05-13-2024 Urine color determination Yellow Yellow [facility] Creatinine [Mass/Vol]Ordered By: Adria Montenegro on 05-13-2024 Serum creatinine measurement (mass/volume) 1.13 mg/dL 0.70-1.20 [facility] Emergency Department Summary on 05-13-2024 Emergency Department Summary Normal [facility] Eosinophil percentageOrdered By: Adria Montenegro on 05-13-2024 Eosinophil percentage 0.1 % 0-1 [facility] Erythrocyte distribution wid th (RBC) [Ratio]Ordered By: Adria Montenegro on 05-13-2024 Erythrocyte distribution width ratio 13.2 % 11.6-14.6 [facility] Erythrocyte distribution width standard deviation 41.1 fl 35.1-43.9 [facility] Estimation of creatinine maribel aranceOrdered By: Adria Montenegro on 05-13-2024 Estimation of creatinine clearance 45.46 ml/min Low 50-250 [facility] GFR/1.73 sq M.predicted shorty g non-blacks MDRD (S/P/Bld) [Vol rate/Area]Ordered By: Adria Montenegro on 05-13-2024 Glomerular filtration rate (GFR) estimation/1.73 sq m using serum, plasma, or whole b 52 Low >60 [facility] Glucose Ql (U)Ordered By: Oscar Montenegro on 05-13-2024 Urine glucose detection 50 mg/dl High Normal [facility] Glucose [Mass/Vol]Ordered By : Adria Montenegro on 05-13-2024 Serum glucose measurement (mass/volume) 177 mg/dL High 70-99 [facility] H AND P Exam - Hospitaliston 05-13-2024 H&P Exam - Hospitalist Normal [facility] Hematocrit Auto (Bld) [Volum e fraction]Ordered By: Adria Montenegro on 05-13-2024 Automated blood hematocrit (percentage) 41.4 % 37-47 [facility] Hemoglobin measurementOrdere d By: Adria Montenegro on 05-13-2024 Hemoglobin measurement 13.9 g/dL 12.0-15.0 [facility] Immature granulocytes/100 WB C Auto (Bld)Ordered By: Adria Montenegro on 05-13-2024 Automated immature granulocyte percentage 0.800 % 0.0-0.9 [facility] Ketones Test strip Ql (U)Ord ered By: Adria Montenegro on 05-13-2024 Urine ketones detection by test strip 15 mg/dl High Negative [facility] L509.7001on 05-13-2024 Procalcitonin 0.08 ng/mL Normal <=0.10 [facility] Comment on above: Result Comment: Inte rpretation:<0.10-0.25 ng/mL: Antibiotic therapy discouraged. Bacterialinfection unlikely.0.25-0.50 ng/mL: Antibiotic therapy encouraged. Bacterialinfection possible.>0.50 ng/mL: Antibiotic therapy strongly encouraged.Suggestive of presence of bacterial infection.PCT should always be interpreted in the clinical context ofthe patient. Therefore, clinicians should use the PCTresults in conjunction with other laboratory findings andclinical signs of the patient. Performed By: #### L 509.7001 ####[facility] [address] [place], [address] Lymphocytes Auto (Unsp spec) [#/Vol]Ordered By: Adria Montenegro on 05-13-2024 Absolute lymphocyte count 0.85 X10^3/uL 0.83-4.51 [facility] Lymphocytes/100 WBC Auto (Un sp spec)Ordered By: Adria Montenegro on 05-13-2024 Automated lymphocyte count as percentage of total leukocytes 5.0 % Low 19-41 [facility] MCV (RBC) [Entitic vol]Order ed By: Adria Montenegro on 05-13-2024 MCV (mean corpuscular volume) determination 86.6 fL 81-99 [facility] Mean corpuscular hemoglobin (MCH) determinationOrdered By: Adria Montenegro on 05-13-2024 Mean corpuscular hemoglobin (MCH) determination 29.1 pg 27.0-32.0 [facility] Mean corpuscular hemoglobin concentration (MCHC) determinationOrdered By: Adria Montenegro on 05-13-2024 Mean corpuscular hemoglobin concentration (MCHC) determination 33.6 g/dL 32-36 [facility] Mean platelet volume determi nationOrdered By: Adria Montenegro on 05-13-2024 Mean platelet volume determination 9.4 fl 6.2-12.0 [facility] Microscopic analysis of urin e for red blood cells (RBC)Ordered By: Adria Montenegro on 05-13-2024 Microscopic analysis of urine for red blood cells (RBC) 0 SEEN /hpf [facility] Monocyte percentageOrdered B y: Adria Montenegro on 05-13-2024 Monocyte percentage 6.1 % 0-10 [facility] Neutrophil percentageOrdered By: Adria Montenegro on 05-13-2024 Neutrophil percentage 87.9 % High 47-70 [facility] No Panel InformationOrdered By: Kanwal White on 05-13-2024 0.08 ng/mL <0.11 [facility] Nucleated red blood cell per centageOrdered By: Adria Montenegro on 05-13-2024 Nucleated red blood cell percentage 0 % 0-5 [facility] Platelet countOrdered By: Oscar Montenegro on 05-13-2024 Platelet count 296 K/mm3 150-450 [facility] Potassium (Unsp spec) [Mass/ Vol]Ordered By: Adria Montenegro on 05-13-2024 Potassium measurement (mass/volume) 3.8 mmol/L 3.3-5.1 [facility] Protein Test strip Ql (U)Ord ered By: Adria Montenegro on 05-13-2024 Urine protein assay by test strip, semi-quantitative 100 mg/dl High Negative [facility] RBC Auto (Bld) [#/Vol]Ordere d By: Adria Montenegro on 05-13-2024 Automated blood erythrocyte count 4.78 M/mm3 4.2-5.4 [facility] Sodium levelOrdered By: Adria Montenegro on 05-13-2024 Sodium level 137 mmol/L 133-145 [facility] Specific gravity (U) [Rel de nsity]Ordered By: Adria Montenegro on 05-13-2024 Urine specific gravity measurement 1.010 1.002-1.030 [facility] Spine Lumbar without Contras ton 05-13-2024 Spine Lumbar without Contrast Normal [facility] Urea nitrogen [Mass/Vol]Orde red By: Adria Montenegro on 05-13-2024 Serum or plasma urea nitrogen measurement (mass/volume) 17 mg/dL 4-19 [facility] Urinalysis, Completeon 05-13 WBC 0-5 SEEN Normal 0-5 [facility] Comment on above: Order Comment: DAYAN CTOR TO SPECIFY Performed By: #### L 400.0001 ####[facility] [address] [place], [address] BACTERIA 0 SEEN Normal None Seen [facility] Comment on above: Order Comment: DAYAN CTOR TO SPECIFY Performed By: #### L 400.0001 ####[facility] [address] [place], [address] EPI,SQUAMOUS 0 SEEN Normal 5-10 [facility] Comment on above: Order Comment: DAYAN CTOR TO SPECIFY Performed By: #### L 400.0001 ####[facility] [address] [place], [address] Mucus Ql (Urine sed) 0 SEEN Normal [facility] Comment on above: Order Comment: DAYAN CTOR TO SPECIFY Performed By: #### L 400.0001 ####[facility] [address] [place], [address] RBC 0 SEEN Normal 0-5 [facility] Comment on above: Order Comment: COLLE CTOR TO SPECIFY Performed By: #### L 400.0001 ####[facility] [address] [place], [address] Urine blood detectionOrdered By: Adria Montenegro on 05-13-2024 Urine blood detection 10 /ul High Negative [facility] Urine total bilirubin detect ion by test stripOrdered By: Adria Montenegro on 05-13-2024 Urine total bilirubin detection by test strip Negative Negative [facility] Urobilinogen Ql (U)Ordered B y: Adria Montenegro on 05-13-2024 Urine urobilinogen measurement Normal mg/dl Normal [facility] White blood cell (WBC) count Ordered By: Adria Montenegro on 05-13-2024 White blood cell (WBC) count 17.0 K/mm3 High 4.4-11.0 [facility] White blood cell countOrdere d By: Adria Montenegro on 05-13-2024 White blood cell count 0-5 SEEN /hpf 0-5 [facility] pH (U)Ordered By: Adria Fang ca on 05-13-2024 Urine pH 6.0 5.0 - 8.0 [facility] Culture, Blood (WB)on 2024 CUB Blood cultures x2, f rom two different sites No growth in 5 days. Normal [facility] Comment on above: Performed By: #### L 500.4050, L503.6005, L300.3900, L300.4310, M200.1000, L501.3620, L100.0100 ####[facility] [address] [place], [address] Bedside Glucoseon 04-24-2024 FINGERSTICK GLU 176 mg/dL High 74-106 [facility] Comment on above: Result Comment: GERALDO BEGUM OF PATIENT CARE PER NURSING PROTOCOL Performed By: #### L 501.080 ####[facility] [address] [place], [address] FINGERSTICK GLU 159 mg/dL High 74-106 [facility] Comment on above: Result Comment: GERALDO GEMENT OF PATIENT CARE PER NURSING PROTOCOL Performed By: #### L 501.080 ####[facility] [address] [place], [address] FINGERSTICK GLU 171 mg/dL High 74-106 [facility] Comment on above: Result Comment: GERALDO GEMENT OF PATIENT CARE PER NURSING PROTOCOL Performed By: #### L 501.080 ####[facility] [address] [place], [address] FINGERSTICK GLU 142 mg/dL High 74-106 [facility] Comment on above: Result Comment: GERALDO GEMENT OF PATIENT CARE PER NURSING PROTOCOL Performed By: #### L 501.080 ####[facility] [address] [place], [address] Glucose measurement at bedsi deOrdered By: John Short on 04-24-2024 Glucose measurement at bedside 176 mg/dL High 74-106 [facility] Urine Cultureon 04-24-2024 URC Normal [facility] Comment on above: Performed By: #### M 100.2200, M100.678, L400.0001 ####[facility] [address] [place], [address] Absolute neutrophil countOrd ered By: John Short on 04-23-2024 Absolute neutrophil count 5.6 X10^3/uL 2.0-7.7 [facility] Anion gap [Moles/Vol]Ordered By: John Short on 04-23-2024 Anion gap in Serum or Plasma 9 5-15 [facility] BUN/creatinine ratioOrdered By: John Short on 04-23-2024 BUN/creatinine ratio 18.3 RATIO 10-20 [facility] Basic Metabolic Profile (BMP )on 04-23-2024 BUN/CRE 18.3 RATIO Normal - [facility] Comment on above: Performed By: #### L 500.2500 ####[facility] [address] [place], [address] Calcium [Mass/Vol] 8.7 mg/dL Normal 7.6-11.0 [facility] Comment on above: Performed By: #### L 500.2500 ####[facility] [address] [place], [address] Chloride [Moles/Vol] 111 mmol/L High 98-108 [facility] Comment on above: Performed By: #### L 500.2500 ####[facility] [address] [place], [address] CO2 [Moles/Vol] 23.1 mmol/L Normal 21.0-32.0 [facility] Comment on above: Performed By: #### L 500.2500 ####[facility] [address] [place], [address] Creatinine [Mass/Vol] 0.79 mg/dL Normal 0.70-1.20 [facility] Comment on above: Performed By: #### L 500.2500 ####[facility] [address] [place], [address] ECRCL 64.42 ml/min Normal 50-250 [facility] Comment on above: Performed By: #### L 500.2500 ####[facility] [address] [place], [address] GAP 9 Normal 5-15 [facility] Comment on above: Performed By: #### L 500.2500 ####[facility] [address] [place], [address] GFR/1.73 sq M.predicted among non-blacks MDRD (S/P/Bld) [Vol rate/Area] 80 mL/min/{1.73_m2} Normal >60 [facility] Comment on above: Result Comment: mL/m in/1.73m2 CKD-EPI Creatinine Equation (2020) Performed By: #### L 500.2500 ####[facility] [address] [place], [address] Glucose [Mass/Vol] 112 mg/dL High 70-99 [facility] Comment on above: Performed By: #### L 500.2500 ####[facility] [address] [place], [address] Potassium [Moles/Vol] 3.3 mmol/L Normal 3.3-5.1 [facility] Comment on above: Performed By: #### L 500.2500 ####[facility] [address] [place], [address] Sodium [Moles/Vol] 144 mmol/L Normal 133-145 [facility] Comment on above: Performed By: #### L 500.2500 ####[facility] [address] [place], [address] Urea nitrogen [Mass/Vol] 15 mg/dL Normal 4-19 [facility] Comment on above: Performed By: #### L 500.2500 ####[facility] [address] [place], [address] Basophil percentageOrdered B y: John Short on 04-23-2024 Basophil percentage 0.1 % 0-1 [facility] Bedside Glucoseon 04-23-2024 FINGERSTICK GLU 210 mg/dL High 74-106 [facility] Comment on above: Result Comment: GERALDO GEMENT OF PATIENT CARE PER NURSING PROTOCOL Performed By: #### L 501.080 ####[facility] [address] [place], [address] FINGERSTICK GLU 157 mg/dL High 74-106 [facility] Comment on above: Result Comment: GERALDO HEENT OF PATIENT CARE PER NURSING PROTOCOL Performed By: #### L 501.080 ####[facility] [address] [place], [address] FINGERSTICK GLU 153 mg/dL High 74-106 [facility] Comment on above: Result Comment: GERALDO BEGUM OF PATIENT CARE PER NURSING PROTOCOL Performed By: #### L 501.080 ####[facility] [address] [place], [address] CBC W/Diff, Automatedon 04-12 Absolute Lymph 1.87 X10 3/uL Normal 0.83-4.51 [facility] Comment on above: Performed By: #### L 100.0100 ####[facility] [address] [place], [address] Absolute Neut 5.6 X10 3/uL Normal 2.0-7.7 [facility] Comment on above: Performed By: #### L 100.0100 ####[facility] [address] [place], [address] Basophils/100 WBC (Bld) 0.1 % Normal 0-1 [facility] Comment on above: Performed By: #### L 100.0100 ####[facility] [address] [place], [address] Eosinophils/100 WBC (Bld) 1.8 % Normal 0-5 [facility] Comment on above: Performed By: #### L 100.0100 ####[facility] [address] [place], [address] Erythrocyte distribution width (RBC) [Ratio] 12.9 % Normal 11.6-14.6 [facility] Comment on above: Performed By: #### L 100.0100 ####[facility] [address] [place], [address] Hematocrit (Bld) [Volume fraction] 35.1 % Low 37-47 [facility] Comment on above: Performed By: #### L 100.0100 ####[facility] [address] [place], [address] Hemoglobin (Bld) [Mass/Vol] 11.2 g/dL Low 12.0-15.0 [facility] Comment on above: Performed By: #### L 100.0100 ####[facility] [address] [place], [address] IG% 0.400 Normal 0.0-0.9 [facility] Comment on above: Result Comment: IG% - Immature Granulocytes (promyelocytes, myelocytes andmetamyelocytes) > 1% indicates that a LEFT SHIFT is Present. Performed By: #### L 100.0100 ####[facility] [address] [place], [address] Lymphocytes/100 WBC (Bld) 23.0 % Normal 19-41 [facility] Comment on above: Performed By: #### L 100.0100 ####[facility] [address] [place], [address] MCH (RBC) [Entitic mass] 29.1 pg Normal 27.0-32.0 [facility] Comment on above: Performed By: #### L 100.0100 ####[facility] [address] [place], [address] MCHC (RBC) [Mass/Vol] 31.9 g/dL Low 32-36 [facility] Comment on above: Performed By: #### L 100.0100 ####[facility] [address] [place], [address] MCV (RBC) [Entitic vol] 91.2 fL Normal 81-99 [facility] Comment on above: Performed By: #### L 100.0100 ####[facility] [address] [place], [address] Monocytes/100 WBC (Bld) 6.2 % Normal 0-10 [facility] Comment on above: Performed By: #### L 100.0100 ####[facility] [address] [place], [address] Neutrophils/100 WBC (Bld) 68.5 % Normal 47-70 [facility] Comment on above: Performed By: #### L 100.0100 ####[facility] [address] [place], [address] Nucleated RBC (Bld) [#/Vol] 0 10*3/uL Normal 0-5 [facility] Comment on above: Performed By: #### L 100.0100 ####[facility] [address] [place], [address] Platelet mean volume (Bld) [Entitic vol] 10.0 fL Normal 6.2-12.0 [facility] Comment on above: Performed By: #### L 100.0100 ####[facility] [address] [place], [address] Platelets (Bld) [#/Vol] 176 10*3/uL Normal 150-450 [facility] Comment on above: Performed By: #### L 100.0100 ####[facility] [address] [place], [address] RBC (Bld) [#/Vol] 3.85 10*6/uL Low 4.2-5.4 [facility] Comment on above: Performed By: #### L 100.0100 ####[facility] [address] [place], [address] RDW SD 42.8 fl Normal 35.1-43.9 [facility] Comment on above: Performed By: #### L 100.0100 ####[facility] [address] [place], [address] WBC (Bld) [#/Vol] 8.1 10*3/uL Normal 4.4-11.0 [facility] Comment on above: Performed By: #### L 100.0100 ####[facility] [address] [place], [address] Calcium [Mass/Vol]Ordered By : John Short on 04-23-2024 Serum or plasma calcium measurement (mass/volume) 8.7 mg/dL 7.6-11.0 [facility] Carbon dioxide, total [Moles /volume] in Central venous bloodOrdered By: John Short on 04-23-2024 Carbon dioxide, total [Moles/volume] in Central venous blood 23.1 mmol/L 21.0-32.0 [facility] Chloride assayOrdered By: Elliot Short on 04-23-2024 Chloride assay 111 mmol/L High 98-108 [facility] Creatinine [Mass/Vol]Ordered By: John Short on 04-23-2024 Serum creatinine measurement (mass/volume) 0.79 mg/dL 0.70-1.20 [facility] Eosinophil percentageOrdered By: John Short on 04-23-2024 Eosinophil percentage 1.8 % 0-5 [facility] Erythrocyte distribution wid th (RBC) [Ratio]Ordered By: John Short on 04-23-2024 Erythrocyte distribution width ratio 12.9 % 11.6-14.6 [facility] Erythrocyte distribution wid th standard deviationOrdered By: John Short on 04-23-2024 Erythrocyte distribution width standard deviation 42.8 fl 35.1-43.9 [facility] Estimation of creatinine maribel aranceOrdered By: John Short on 04-23-2024 Estimation of creatinine clearance 64.42 ml/min 50-250 [facility] GFR/1.73 sq M.predicted shorty g non-blacks MDRD (S/P/Bld) [Vol rate/Area]Ordered By: John Short on 04-23-2024 Glomerular filtration rate (GFR) estimation/1.73 sq m using serum, plasma, or whole b 80 >60 [facility] Glucose [Mass/Vol]Ordered By : John Short on 04-23-2024 Serum glucose measurement (mass/volume) 112 mg/dL High 70-99 [facility] Hematocrit Auto (Bld) [Volum e fraction]Ordered By: John Short on 04-23-2024 Automated blood hematocrit (percentage) 35.1 % Low 37-47 [facility] Hemoglobin measurementOrdere d By: John Short on 04-23-2024 Hemoglobin measurement 11.2 g/dL Low 12.0-15.0 [facility] Immature granulocytes/100 WB C Auto (Bld)Ordered By: Jonh Short on 04-23-2024 Automated immature granulocyte percentage 0.400 % 0.0-0.9 [facility] Lymphocytes Auto (Unsp spec) [#/Vol]Ordered By: John Short on 04-23-2024 Absolute lymphocyte count 1.87 X10^3/uL 0.83-4.51 [facility] Lymphocytes/100 WBC Auto (Un sp spec)Ordered By: John Short on 04-23-2024 Automated lymphocyte count as percentage of total leukocytes 23.0 % 19-41 [facility] MCV (RBC) [Entitic vol]Order ed By: John Short on 04-23-2024 MCV (mean corpuscular volume) determination 91.2 fL 81-99 [facility] Mean corpuscular hemoglobin (MCH) determinationOrdered By: John Short on 04-23-2024 Mean corpuscular hemoglobin (MCH) determination 29.1 pg 27.0-32.0 [facility] Mean corpuscular hemoglobin concentration (MCHC) determinationOrdered By: John Short on 04-23-2024 Mean corpuscular hemoglobin concentration (MCHC) determination 31.9 g/dL Low 32-36 [facility] Mean platelet volume determi nationOrdered By: John Short on 04-23-2024 Mean platelet volume determination 10.0 fl 6.2-12.0 [facility] Monocyte percentageOrdered B y: John Short on 04-23-2024 Monocyte percentage 6.2 % 0-10 [facility] Neutrophil percentageOrdered By: John Short on 04-23-2024 Neutrophil percentage 68.5 % 47-70 [facility] Nucleated red blood cell per centageOrdered By: John Short on 04-23-2024 Nucleated red blood cell percentage 0 % 0-5 [facility] Platelet countOrdered By: Elliot Short on 04-23-2024 Platelet count 176 K/mm3 150-450 [facility] Potassium (Unsp spec) [Mass/ Vol]Ordered By: John Short on 04-23-2024 Potassium measurement (mass/volume) 3.3 mmol/L 3.3-5.1 [facility] RBC Auto (Bld) [#/Vol]Ordere d By: John Short on 04-23-2024 Automated blood erythrocyte count 3.85 M/mm3 Low 4.2-5.4 [facility] Sodium levelOrdered By: John Short on 04-23-2024 Sodium level 144 mmol/L 133-145 [facility] Urea nitrogen [Mass/Vol]Orde red By: John Short on 04-23-2024 Serum or plasma urea nitrogen measurement (mass/volume) 15 mg/dL 4-19 [facility] White blood cell (WBC) count Ordered By: John Short on 04-23-2024 White blood cell (WBC) count 8.1 K/mm3 4.4-11.0 [facility] Basic Metabolic Profile (BMP )on 04-22-2024 BUN/CRE 25.6 RATIO High 10-20 [facility] Comment on above: Performed By: #### L 500.2500 ####[facility] [address] [place], [address] Calcium [Mass/Vol] 8.2 mg/dL Normal 7.6-11.0 [facility] Comment on above: Performed By: #### L 500.2500 ####[facility] [address] [place], [address] Chloride [Moles/Vol] 113 mmol/L High 98-108 [facility] Comment on above: Performed By: #### L 500.2500 ####[facility] [address] [place], [address] CO2 [Moles/Vol] 21.2 mmol/L Normal 21.0-32.0 [facility] Comment on above: Performed By: #### L 500.2500 ####[facility] [address] [place], [address] Creatinine [Mass/Vol] 0.91 mg/dL Normal 0.70-1.20 [facility] Comment on above: Performed By: #### L 500.2500 ####[facility] [address] [place], [address] ECRCL 55.94 ml/min Normal 50-250 [facility] Comment on above: Performed By: #### L 500.2500 ####[facility] [address] [place], [address] GAP 9 Normal 5-15 [facility] Comment on above: Performed By: #### L 500.2500 ####[facility] [address] [place], [address] GFR/1.73 sq M.predicted among non-blacks MDRD (S/P/Bld) [Vol rate/Area] 68 mL/min/{1.73_m2} Normal >60 [facility] Comment on above: Result Comment: mL/m in/1.73m2 CKD-EPI Creatinine Equation (2020) Performed By: #### L 500.2500 ####[facility] [address] [place], [address] Glucose [Mass/Vol] 120 mg/dL High 70-99 [facility] Comment on above: Performed By: #### L 500.2500 ####[facility] [address] [place], [address] Potassium [Moles/Vol] 2.9 mmol/L Low 3.3-5.1 [facility] Comment on above: Performed By: #### L 500.2500 ####[facility] [address] [place], [address] Sodium [Moles/Vol] 143 mmol/L Normal 133-145 [facility] Comment on above: Performed By: #### L 500.2500 ####[facility] [address] [place], [address] Urea nitrogen [Mass/Vol] 23 mg/dL High 4-19 [facility] Comment on above: Performed By: #### L 500.2500 ####[facility] [address] [place], [address] Bedside Glucoseon 04-22-2024 FINGERSTICK GLU 143 mg/dL High 74-106 [facility] Comment on above: Result Comment: GERALDO GEMENT OF PATIENT CARE PER NURSING PROTOCOL Performed By: #### L 501.080 ####[facility] [address] [place], [address] FINGERSTICK GLU 145 mg/dL High 74-106 [facility] Comment on above: Result Comment: GERALDO GEMENT OF PATIENT CARE PER NURSING PROTOCOL Performed By: #### L 501.080 ####[facility] [address] [place], [address] FINGERSTICK GLU 159 mg/dL High 74-106 [facility] Comment on above: Result Comment: GERALDO GEMENT OF PATIENT CARE PER NURSING PROTOCOL Performed By: #### L 501.080 ####[facility] [address] [place], [address] FINGERSTICK GLU 105 mg/dL Normal 74-106 [facility] Comment on above: Result Comment: GERALDO GEMENT OF PATIENT CARE PER NURSING PROTOCOL Performed By: #### L 501.080 ####[facility] [address] [place], [address] FINGERSTICK GLU 105 mg/dL Normal 74-106 [facility] Comment on above: Result Comment: GERALDO GEMENT OF PATIENT CARE PER NURSING PROTOCOL Performed By: #### L 501.080 ####[facility] [address] [place], [address] FINGERSTICK GLU 91 mg/dL Normal 74-106 [facility] Comment on above: Result Comment: GERALDO GEMENT OF PATIENT CARE PER NURSING PROTOCOL Performed By: #### L 501.080 ####[facility] [address] [place], [address] ALP [Catalytic activity/Vol] Ordered By: [facility] on 04-21-2024 Serum or plasma alkaline phosphatase measurement 76 U/L 35-104 [facility] ALT [Catalytic activity/Vol] Ordered By: [facility] on 04-21-2024 Serum or plasma alanine aminotransferase (ALT) measurement 20 U/L <35 [facility] Albumin [Mass/Vol]Ordered By : [facility] on 04-21-2024 Serum or plasma albumin measurement (mass/volume) 3.4 g/dL 3.4-4.8 [facility] Albumin/Globulin [Mass ratio ]Ordered By: [facility] on 04-21-2024 Serum or plasma albumin/globulin mass ratio 1.4 RATIO 0.9-2.4 [facility] Basic Metabolic Profile (BMP )on 04-21-2024 BUN/CRE 36.5 RATIO High 10-20 [facility] Comment on above: Performed By: #### L 500.2500 ####[facility] [address] [place], [address] Calcium [Mass/Vol] 8.0 mg/dL Normal 7.6-11.0 [facility] Comment on above: Performed By: #### L 500.2500 ####[facility] [address] [place], [address] Chloride [Moles/Vol] 118 mmol/L High 98-108 [facility] Comment on above: Performed By: #### L 500.2500 ####[facility] [address] [place], [address] CO2 [Moles/Vol] 20.1 mmol/L Low 21.0-32.0 [facility] Comment on above: Performed By: #### L 500.2500 ####[facility] [address] [place], [address] Creatinine [Mass/Vol] 0.93 mg/dL Normal 0.70-1.20 [facility] Comment on above: Performed By: #### L 500.2500 ####[facility] [address] [place], [address] ECRCL 54.74 ml/min Normal 50-250 [facility] Comment on above: Performed By: #### L 500.2500 ####[facility] [address] [place], [address] GAP 10 Normal 5-15 [facility] Comment on above: Performed By: #### L 500.2500 ####[facility] [address] [place], [address] GFR/1.73 sq M.predicted among non-blacks MDRD (S/P/Bld) [Vol rate/Area] 66 mL/min/{1.73_m2} Normal >60 [facility] Comment on above: Result Comment: mL/m in/1.73m2 CKD-EPI Creatinine Equation (2020) Performed By: #### L 500.2500 ####[facility] [address] [place], [address] Glucose [Mass/Vol] 104 mg/dL High 70-99 [facility] Comment on above: Performed By: #### L 500.2500 ####[facility] [address] [place], [address] Potassium [Moles/Vol] 3.4 mmol/L Normal 3.3-5.1 [facility] Comment on above: Performed By: #### L 500.2500 ####[facility] [address] [place], [address] Sodium [Moles/Vol] 148 mmol/L High 133-145 [facility] Comment on above: Performed By: #### L 500.2500 ####[facility] [address] [place], [address] Urea nitrogen [Mass/Vol] 34 mg/dL High 4-19 [facility] Comment on above: Performed By: #### L 500.2500 ####[facility] [address] [place], [address] Bedside Glucoseon 04-21-2024 FINGERSTICK GLU 84 mg/dL Normal 74-106 [facility] Comment on above: Result Comment: GERALDO GEMENT OF PATIENT CARE PER NURSING PROTOCOL Performed By: #### L 501.080 ####[facility] [address] [place], [address] FINGERSTICK GLU 89 mg/dL Normal 74-106 [facility] Comment on above: Result Comment: GERALDO GEMENT OF PATIENT CARE PER NURSING PROTOCOL Performed By: #### L 501.080 ####[facility] [address] [place], [address] FINGERSTICK GLU 122 mg/dL High 74-106 [facility] Comment on above: Result Comment: GERALDO GEMENT OF PATIENT CARE PER NURSING PROTOCOL Performed By: #### L 501.080 ####[facility] [address] [place], [address] Bilirubin, totalOrdered By: Kanwal Aguilar on 04-21-2024 Bilirubin, total 0.43 mg/dL 0.00-1.30 [facility] CBC W/Diff, Automatedon 04-12 Absolute Lymph 1.85 X10 3/uL Normal 0.83-4.51 [facility] Comment on above: Performed By: #### L 100.0100, L500.4050 ####[facility] [address] [place], [address] Absolute Neut 13.0 X10 3/uL High 2.0-7.7 [facility] Comment on above: Performed By: #### L 100.0100, L500.4050 ####[facility] [address] [place], [address] Basophils/100 WBC (Bld) 0.1 % Normal 0-1 [facility] Comment on above: Performed By: #### L 100.0100, L500.4050 ####[facility] [address] [place], [address] Eosinophils/100 WBC (Bld) 0.2 % Normal 0-5 [facility] Comment on above: Performed By: #### L 100.0100, L500.4050 ####[facility] [address] [place], [address] Erythrocyte distribution width (RBC) [Ratio] 13.2 % Normal 11.6-14.6 [facility] Comment on above: Performed By: #### L 100.0100, L500.4050 ####[facility] [address] [place], [address] Hematocrit (Bld) [Volume fraction] 39.1 % Normal 37-47 [facility] Comment on above: Performed By: #### L 100.0100, L500.4050 ####[facility] [address] [place], [address] Hemoglobin (Bld) [Mass/Vol] 12.5 g/dL Normal 12.0-15.0 [facility] Comment on above: Performed By: #### L 100.0100, L500.4050 ####[facility] [address] [place], [address] IG% 0.600 Normal 0.0-0.9 [facility] Comment on above: Result Comment: IG% - Immature Granulocytes (promyelocytes, myelocytes andmetamyelocytes) > 1% indicates that a LEFT SHIFT is Present. Performed By: #### L 100.0100, L500.4050 ####[facility] [address] [place], [address] Lymphocytes/100 WBC (Bld) 11.4 % Low 19-41 [facility] Comment on above: Performed By: #### L 100.0100, L500.4050 ####[facility] [address] [place], [address] MCH (RBC) [Entitic mass] 29.1 pg Normal 27.0-32.0 [facility] Comment on above: Performed By: #### L 100.0100, L500.4050 ####[facility] [address] [place], [address] MCHC (RBC) [Mass/Vol] 32.0 g/dL Normal 32-36 [facility] Comment on above: Performed By: #### L 100.0100, L500.4050 ####[facility] [address] [place], [address] MCV (RBC) [Entitic vol] 91.1 fL Normal 81-99 [facility] Comment on above: Performed By: #### L 100.0100, L500.4050 ####[facility] [address] [place], [address] Monocytes/100 WBC (Bld) 7.8 % Normal 0-10 [facility] Comment on above: Performed By: #### L 100.0100, L500.4050 ####[facility] [address] [place], [address] Neutrophils/100 WBC (Bld) 79.9 % High 47-70 [facility] Comment on above: Performed By: #### L 100.0100, L500.4050 ####[facility] [address] [place], [address] Nucleated RBC (Bld) [#/Vol] 0 10*3/uL Normal 0-5 [facility] Comment on above: Performed By: #### L 100.0100, L500.4050 ####[facility] [address] [place], [address] Platelet mean volume (Bld) [Entitic vol] 9.8 fL Normal 6.2-12.0 [facility] Comment on above: Performed By: #### L 100.0100, L500.4050 ####[facility] [address] [place], [address] Platelets (Bld) [#/Vol] 237 10*3/uL Normal 150-450 [facility] Comment on above: Performed By: #### L 100.0100, L500.4050 ####[facility] [address] [place], [address] RBC (Bld) [#/Vol] 4.29 10*6/uL Normal 4.2-5.4 [facility] Comment on above: Performed By: #### L 100.0100, L500.4050 ####[facility] [address] [place], [address] RDW SD 44.0 fl High 35.1-43.9 [facility] Comment on above: Performed By: #### L 100.0100, L500.4050 ####[facility] [address] [place], [address] WBC (Bld) [#/Vol] 16.2 10*3/uL High 4.4-11.0 [facility] Comment on above: Performed By: #### L 100.0100, L500.4050 ####[facility] [address] [place], [address] CK [Catalytic activity/Vol]O rdered By: Kanwal Aguilar on 04-21-2024 Serum or plasma creatine kinase activity 239 U/L High - [facility] CPK Total, Creatine Kinaseon 04-21-2024 CPK TOTAL 239 U/L High - [facility] Comment on above: Performed By: #### L 501.3620 ####[facility] [address] [place], [address] Comprehensive Metabolic Prof ilon 04-21-2024 Albumin [Mass/Vol] 3.4 g/dL Normal 3.4-4.8 [facility] Comment on above: Performed By: #### L 100.0100, L500.4050 ####[facility] [address] [place], [address] Albumin/Globulin [Mass ratio] 1.4 {ratio} Normal 0.9-2.4 [facility] Comment on above: Performed By: #### L 100.0100, L500.4050 ####[facility] [address] [place], [address] ALK PHOS 76 U/L Normal 35-104 [facility] Comment on above: Performed By: #### L 100.0100, L500.4050 ####[facility] [address] [place], [address] ALT [Catalytic activity/Vol] 20 U/L Normal <=34 [facility] Comment on above: Performed By: #### L 100.0100, L500.4050 ####[facility] [address] [place], [address] AST [Catalytic activity/Vol] 32 U/L Normal <=31 [facility] Comment on above: Performed By: #### L 100.0100, L500.4050 ####[facility] [address] [place], [address] Bilirubin [Mass/Vol] 0.43 mg/dL Normal 0.00-1.30 [facility] Comment on above: Performed By: #### L 100.0100, L500.4050 ####[facility] [address] [place], [address] BUN/CRE 36.7 RATIO High 10-20 [facility] Comment on above: Performed By: #### L 100.0100, L500.4050 ####[facility] [address] [place], [address] Calcium [Mass/Vol] 8.5 mg/dL Normal 7.6-11.0 [facility] Comment on above: Performed By: #### L 100.0100, L500.4050 ####[facility] [address] [place], [address] Chloride [Moles/Vol] 115 mmol/L High 98-108 [facility] Comment on above: Performed By: #### L 100.0100, L500.4050 ####[facility] [address] [place], [address] CO2 [Moles/Vol] 15.4 mmol/L Low 21.0-32.0 [facility] Comment on above: Performed By: #### L 100.0100, L500.4050 ####[facility] [address] [place], [address] Creatinine [Mass/Vol] 1.27 mg/dL High 0.70-1.20 [facility] Comment on above: Performed By: #### L 100.0100, L500.4050 ####[facility] [address] [place], [address] ECRCL 40.08 ml/min Low 50-250 [facility] Comment on above: Performed By: #### L 100.0100, L500.4050 ####[facility] [address] [place], [address] GAP 16 High 5-15 [facility] Comment on above: Performed By: #### L 100.0100, L500.4050 ####[facility] [address] [place], [address] GFR/1.73 sq M.predicted among non-blacks MDRD (S/P/Bld) [Vol rate/Area] 45 mL/min/{1.73_m2} Low >60 [facility] Comment on above: Result Comment: mL/m in/1.73m2 CKD-EPI Creatinine Equation (2020) Performed By: #### L 100.0100, L500.4050 ####[facility] [address] [place], [address] Globulin (S) [Mass/Vol] 2.4 g/dL Normal 2.2-4.2 [facility] Comment on above: Performed By: #### L 100.0100, L500.4050 ####[facility] [address] [place], [address] Glucose [Mass/Vol] 142 mg/dL High 70-99 [facility] Comment on above: Performed By: #### L 100.0100, L500.4050 ####[facility] [address] [place], [address] Potassium [Moles/Vol] 3.7 mmol/L Normal 3.3-5.1 [facility] Comment on above: Performed By: #### L 100.0100, L500.4050 ####[facility] [address] [place], [address] Sodium [Moles/Vol] 146 mmol/L High 133-145 [facility] Comment on above: Performed By: #### L 100.0100, L500.4050 ####[facility] [address] [place], [address] T PROT 5.8 g/dL Low 5.9-8.4 [facility] Comment on above: Performed By: #### L 100.0100, L500.4050 ####[facility] [address] [place], [address] Urea nitrogen [Mass/Vol] 47 mg/dL High 4-19 [facility] Comment on above: Performed By: #### L 100.0100, L500.4050 ####[facility] [address] [place], [address] Echocardiogram study reportO rdered By: Tiffanie Jimenez on 04-21-2024 Study report [facility] Work Phone: Electrocardiogram reportOrde red By: Sharita Azar on 04-21-2024 EKG study [facility] Work Phone: [phone] 04-21-2024 BETA-HYDROXYBUT 1.0 mmol/L Normal 0.0-0.3 [facility] Comment on above: Performed By: #### L 501.6901 ####[facility] [address] [place], [address] BETA-HYDROXYBUT 3.5 mmol/L Normal 0.0-0.3 [facility] Comment on above: Order Comment: Comme nts: may add to ED labs Performed By: #### L 501.6901, L501.5200, L501.2300 ####[facility] [address] [place], [address] Lactic Acidon 04-21-2024 Lactate [Moles/Vol] 2.1 mmol/L High 0.0-2.0 [facility] Comment on above: Order Comment: Y Performed By: #### L 503.6005 ####[facility] [address] [place], [address] Lactic acid measurementOrder ed By: lAden Finn on 04-21-2024 Lactic acid measurement 2.1 mmol/L High 0.0-2.0 [facility] Magnesiumon 04-21-2024 Magnesium [Mass/Vol] 2.1 mg/dL Normal 1.5-2.2 [facility] Comment on above: Order Comment: Comme nts: may add to ED labs Performed By: #### L 501.6901, L501.5200, L501.2300 ####[facility] [address] [place], [address] No Panel InformationOrdered By: Kawnal Aguilar on 04-21-2024 32 U/L <32 [facility] No Panel InformationOrdered By: Atul Quezada on 04-21-2024 1.0 mmol/L 0.0-0.3 [facility] Phosphoruson 04-21-2024 Phosphate [Mass/Vol] 2.2 mg/dL Low 2.7-4.5 [facility] Comment on above: Order Comment: Comme nts: may add to ED labs Performed By: #### L 501.6901, L501.5200, L501.2300 ####[facility] [address] [place], [place], [address] Serum globulin measurementOr dered By: Kanwal Aguilar on 04-21-2024 Serum globulin measurement 2.4 g/dL 2.2-4.2 [facility] Total proteinOrdered By: Luciana Aguilar on 04-21-2024 Total protein 5.8 g/dL Low 5.9-8.4 [facility] 12 Lead EKGon 04-20-2024 12 Lead EKG Normal [facility] ALP [Catalytic activity/Vol] Ordered By: Monica Alvarado on 04-20-2024 Serum or plasma alkaline phosphatase measurement 114 U/L High 35-104 [facility] ALT [Catalytic activity/Vol] Ordered By: Monica Alvarado on 04-20-2024 Serum or plasma alanine aminotransferase (ALT) measurement 25 U/L <35 [facility] Abdomen/Pelvis without Conto n 04-20-2024 Abdomen/Pelvis without Cont Normal [facility] Absolute neutrophil countOrd ered By: Monica Alvarado on 04-20-2024 Absolute neutrophil count 21.6 X10^3/uL High 2.0-7.7 [facility] Albumin [Mass/Vol]Ordered By : Monica Alvarado on 04-20-2024 Serum or plasma albumin measurement (mass/volume) 4.5 g/dL 3.4-4.8 [facility] Albumin/Globulin [Mass ratio ]Ordered By: Monica Alvarado on 04-20-2024 Serum or plasma albumin/globulin mass ratio 1.2 RATIO 0.9-2.4 [facility] Anion gap [Moles/Vol]Ordered By: Monica Alvarado on 04-20-2024 Anion gap in Serum or Plasma 29 High 5-15 [facility] Arterial patency Wrist arter y --pre arterial punctureOrdered By: Kanwal Aguilar on 04-20-2024 Assessment of wrist artery patency prior to arterial puncture Positive [facility] BUN/creatinine ratioOrdered By: Monica Alvarado on 04-20-2024 BUN/creatinine ratio 29.9 RATIO High 10-20 [facility] Bacteria LM.HPF (Urine sed) [#/Area]Ordered By: Monica Alvarado on 04-20-2024 Urine sediment bacteria count by microscopy (number/high power field) 2+ /hpf None Seen [facility] Base excess Calc (BldV) [Mol es/Vol]Ordered By: Kanwal Aguilar on 04-20-2024 Blood base excess determination -4 mmol/L Low -2-2 [facility] Basophil percentageOrdered B y: Monica Alvarado on 04-20-2024 Basophil percentage 0.1 % 0-1 [facility] Bedside Glucoseon 04-20-2024 FINGERSTICK GLU 145 mg/dL High 74-106 [facility] Comment on above: Result Comment: GERALDO GEMENT OF PATIENT CARE PER NURSING PROTOCOL Performed By: #### L 501.080 ####[facility] [address] [place], [place], [address] FINGERSTICK GLU 194 mg/dL High 74-106 [facility] Comment on above: Result Comment: GERALDO GEMENT OF PATIENT CARE PER NURSING PROTOCOL Performed By: #### L 501.080 ####[facility] [address] [place], [place], [address] Bilirubin Test strip Ql (U)O rdered By: Monica Alvarado on 04-20-2024 Urine total bilirubin detection by test strip 1 mg/dL High Negative [facility] Bilirubin, totalOrdered By: Monica Alvarado on 04-20-2024 Bilirubin, total 1.15 mg/dL 0.00-1.30 [facility] Blood Gases by CPSon 025 KYREE TEST Positive Normal [facility] Comment on above: Performed By: #### L 0.0800 ####[facility] [address] [place], [address] Base excess Calc (Bld) [Moles/Vol] -4 mmol/L Low -2 to +2 [facility] Comment on above: Performed By: #### L 8999.0800 ####[facility] [address] [place], [address] Blood Gas Type ART Normal [facility] Comment on above: Performed By: #### L 0.0800 ####[facility] [address] [place], [address] CO2 [Moles/Vol] 22 mmol/L Normal [facility] Comment on above: Performed By: #### L 8999.0800 ####[facility] [address] [place], [address] FI02 21.0 Normal [facility] Comment on above: Performed By: #### L 0.0800 ####[facility] [address] [place], [address] HCO3 (Bld) [Moles/Vol] 20.6 mmol/L Low 22-26 [facility] Comment on above: Performed By: #### L 0.0800 ####[facility] [address] [place], [address] Mode Not entered Normal [facility] Comment on above: Performed By: #### L 0.0800 ####[facility] [address] [place], [address] O2 Delivery Dev Room Air Normal [facility] Comment on above: Performed By: #### L 0.0800 ####[facility] [address] [place], [address] pCO2 30.5 mmHg Low 35-45 [facility] Comment on above: Performed By: #### L 9000.0800 ####[facility] [address] [place], [address] pH (Bld) 7.44 [pH] Normal 7.35-7.45 [facility] [facility] Comment on above: Performed By: #### L 9000.0800 ####[facility] [address] [place], [address] PO2 70 mmHG Low 75-100 [facility] Comment on above: Performed By: #### L 9000.0800 ####[facility] [address] [place], [address] SITE R Brach Normal [facility] Comment on above: Performed By: #### L 9000.0800 ####[facility] [address] [place], [address] SO2 95 Normal 95-99 [facility] Comment on above: Performed By: #### L 9000.0800 ####[facility] [address] [place], [address] Blood bicarbonate measuremen tOrdered By: Kanwal Aguilar on 04-20-2024 Blood bicarbonate measurement 20.6 mmol/L Low 22-26 [facility] Blood cultureOrdered By: Kadie Alvarado on 04-20-2024 Blood culture No growth in 5 days. [facility] Blood culture No growth in 5 days. [facility] Brain/Head without Contrasto n 04-20-2024 Brain/Head without Contrast Normal [facility] CBC W/Diff, Automatedon 03-0 SMEAR COMMENT SCANNED Normal [facility] Comment on above: Result Comment: NEUT ROPHILIA NOTED Performed By: #### L 500.4050, L503.6005, L300.3900, L300.4310, M200.1000, L501.3620, L100.0100 ####[facility] [address] [place], [place], [id number] CK [Catalytic activity/Vol]O rdered By: Monica Alvarado on 04-20-2024 Serum or plasma creatine kinase activity 762 U/L High [facility] CPK Total, Creatine Kinaseon 04-20-2024 CPK TOTAL 762 U/L High - [facility] Comment on above: Performed By: #### L 500.4050, L503.6005, L300.3900, L300.4310, M200.1000, L501.3620, L100.0100 ####[facility] [address] [place], [place], [id number] Calcium [Mass/Vol]Ordered By : Monica Alvarado on 04-20-2024 Serum or plasma calcium measurement (mass/volume) 10.7 mg/dL 7.6-11.0 [facility] Carbon dioxide, total [Moles /volume] in Central venous bloodOrdered By: Monica Alvarado on 04-20-2024 Carbon dioxide, total [Moles/volume] in Central venous blood 12.2 mmol/L Low 21.0-32.0 [facility] Chest without Contraston Chest without Contrast Normal [facility] Chloride assayOrdered By: Eleni Alvarado on 04-20-2024 Chloride assay 103 mmol/L 98-108 [facility] Clarity (U)Ordered By: Monica Alvarado on 04-20-2024 Urine clarity Sl. Cloudy Clear [facility] Color (U)Ordered By: Monica goddard on 04-20-2024 Urine color determination Yellow Yellow [facility] Comprehensive Metabolic Prof ilon 04-20-2024 Albumin [Mass/Vol] 4.5 g/dL Normal 3.4-4.8 [facility] Comment on above: Performed By: #### L 500.4050, L503.6005, L300.3900, L300.4310, M200.1000, L501.3620, L100.0100 ####[facility] [address] [place], [address] Albumin/Globulin [Mass ratio] 1.2 {ratio} Normal 0.9-2.4 [facility] Comment on above: Performed By: #### L 500.4050, L503.6005, L300.3900, L300.4310, M200.1000, L501.3620, L100.0100 ####[facility] [address] [place], [address] ALK PHOS 114 U/L High 35-104 [facility] Comment on above: Performed By: #### L 500.4050, L503.6005, L300.3900, L300.4310, M200.1000, L501.3620, L100.0100 ####[facility] [address] [place], [address] ALT [Catalytic activity/Vol] 25 U/L Normal <=34 [facility] Comment on above: Performed By: #### L 500.4050, L503.6005, L300.3900, L300.4310, M200.1000, L501.3620, L100.0100 ####[facility] [address] [place], [address] AST [Catalytic activity/Vol] 70 U/L High <=31 [facility] Comment on above: Performed By: #### L 500.4050, L503.6005, L300.3900, L300.4310, M200.1000, L501.3620, L100.0100 ####[facility] [address] [place], [address] Bilirubin [Mass/Vol] 1.15 mg/dL Normal 0.00-1.30 [facility] Comment on above: Performed By: #### L 500.4050, L503.6005, L300.3900, L300.4310, M200.1000, L501.3620, L100.0100 ####[facility] [address] [place], [address] BUN/CRE 29.9 RATIO High 10-20 [facility] Comment on above: Performed By: #### L 500.4050, L503.6005, L300.3900, L300.4310, M200.1000, L501.3620, L100.0100 ####[facility] [address] [place], [address] Calcium [Mass/Vol] 10.7 mg/dL Normal 7.6-11.0 [facility] Comment on above: Performed By: #### L 500.4050, L503.6005, L300.3900, L300.4310, M200.1000, L501.3620, L100.0100 ####[facility] [address] [place], [address] Chloride [Moles/Vol] 103 mmol/L Normal 98-108 [facility] Comment on above: Performed By: #### L 500.4050, L503.6005, L300.3900, L300.4310, M200.1000, L501.3620, L100.0100 ####[facility] [address] [place], [address] CO2 [Moles/Vol] 12.2 mmol/L Low 21.0-32.0 [facility] Comment on above: Performed By: #### L 500.4050, L503.6005, L300.3900, L300.4310, M200.1000, L501.3620, L100.0100 ####[facility] [address] [place], [address] Creatinine [Mass/Vol] 1.57 mg/dL High 0.70-1.20 [facility] Comment on above: Performed By: #### L 500.4050, L503.6005, L300.3900, L300.4310, M200.1000, L501.3620, L100.0100 ####[facility] [address] [place], [address] ECRCL 30.00 ml/min Low 50-250 [facility] Comment on above: Performed By: #### L 500.4050, L503.6005, L300.3900, L300.4310, M200.1000, L501.3620, L100.0100 ####[facility] [address] [place], [address] GAP 29 High 5-15 [facility] Comment on above: Performed By: #### L 500.4050, L503.6005, L300.3900, L300.4310, M200.1000, L501.3620, L100.0100 ####[facility] [address] [place], [place], [phone] GFR/1.73 sq M.predicted among non-blacks MDRD (S/P/Bld) [Vol rate/Area] 35 mL/min/{1.73_m2} Low >60 [facility] Comment on above: Result Comment: mL/m in/1.73m2 CKD-EPI Creatinine Equation (2020) Performed By: #### L 500.4050, L503.6005, L300.3900, L300.4310, M200.1000, L501.3620, L100.0100 ####[facility] [address] [place], [address] Globulin (S) [Mass/Vol] 3.6 g/dL Normal 2.2-4.2 [facility] Comment on above: Performed By: #### L 500.4050, L503.6005, L300.3900, L300.4310, M200.1000, L501.3620, L100.0100 ####[facility] [address] [place], [address] Glucose [Mass/Vol] 231 mg/dL High 70-99 [facility] Comment on above: Performed By: #### L 500.4050, L503.6005, L300.3900, L300.4310, M200.1000, L501.3620, L100.0100 ####[facility] [address] [place], [address] Potassium [Moles/Vol] 4.0 mmol/L Normal 3.3-5.1 [facility] Comment on above: Result Comment: Hemo lysis present, Results??could be affected.?? Performed By: #### L 500.4050, L503.6005, L300.3900, L300.4310, M200.1000, L501.3620, L100.0100 ####[facility] [address] [place], [address] Sodium [Moles/Vol] 144 mmol/L Normal 133-145 [facility] Comment on above: Performed By: #### L 500.4050, L503.6005, L300.3900, L300.4310, M200.1000, L501.3620, L100.0100 ####[facility] [address] [place], [address] T PROT 8.1 g/dL Normal 5.9-8.4 [facility] Comment on above: Performed By: #### L 500.4050, L503.6005, L300.3900, L300.4310, M200.1000, L501.3620, L100.0100 ####[facility] [address] [place], [address] Urea nitrogen [Mass/Vol] 47 mg/dL High 4-19 [facility] Comment on above: Performed By: #### L 500.4050, L503.6005, L300.3900, L300.4310, M200.1000, L501.3620, L100.0100 ####[facility] [address] [place], [address] Consultation - Intensiviston 04-20-2024 Consultation - Inspectors And Regulatory Officers Normal [facility] Creatinine [Mass/Vol]Ordered By: Monica Alvarado on 04-20-2024 Serum creatinine measurement (mass/volume) 1.57 mg/dL High 0.70-1.20 [facility] Determination of fraction of inspired oxygenOrdered By: Kanwal Aguilar on 04-20-2024 Determination of fraction of inspired oxygen 21.0 [facility] Echo Completeon 04-20-2024 Echo Complete Normal [facility] Emergency Department Summary on 04-20-2024 Emergency Department Summary Normal [facility] Eosinophil percentageOrdered By: Monica Alvarado on 04-20-2024 Eosinophil percentage 0.0 % 0-5 [facility] Erythrocyte distribution wid th (RBC) [Entitic vol]Ordered By: Monica Alvarado on 04-20-2024 Erythrocyte distribution width standard deviation 40.4 fl 35.1-43.9 [facility] Erythrocyte distribution wid th (RBC) [Ratio]Ordered By: Monica Alvarado on 04-20-2024 Erythrocyte distribution width ratio 13.0 % 11.6-14.6 [facility] Estimation of creatinine maribel aranceOrdered By: Monica Alvarado on 04-20-2024 Estimation of creatinine clearance 30.00 ml/min Low 50-250 [facility] GFR/1.73 sq M.predicted shorty g non-blacks MDRD (S/P/Bld) [Vol rate/Area]Ordered By: Monica Alvarado on 04-20-2024 Glomerular filtration rate (GFR) estimation/1.73 sq m using serum, plasma, or whole b 35 Low >60 [facility] Glucose [Mass/Vol]Ordered By : Monica Alvarado on 04-20-2024 Serum glucose measurement (mass/volume) 231 mg/dL High 70-99 [facility] Glucose measurement at bedsi deOrdered By: Joe Preston on 04-20-2024 Glucose measurement at bedside 194 mg/dL High 74-106 [facility] H AND P Exam - Hospitaliston 04-20-2024 H&P Exam - Hospitalist Normal [facility] Hematocrit Auto (Bld) [Volum e fraction]Ordered By: Monica Alvarado on 04-20-2024 Automated blood hematocrit (percentage) 51.0 % High 37-47 [facility] Hemoglobin measurementOrdere d By: Monica Alvarado on 04-20-2024 Hemoglobin measurement 17.1 g/dL High 12.0-15.0 [facility] Immature granulocytes/100 WB C Auto (Bld)Ordered By: Monica Alvarado on 04-20-2024 Automated immature granulocyte percentage 0.800 % 0.0-0.9 [facility] International normalized rat io (INR) calculationOrdered By: Monica Alvarado on 04-20-2024 International normalized ratio (INR) calculation 1.2 [facility] Ketones Test strip Ql (U)Ord ered By: Monica Alvarado on 04-20-2024 Urine ketones detection by test strip 50 mg/dl High Negative [facility] Lactic Acidon 04-20-2024 Lactate [Moles/Vol] 3.0 mmol/L Invalid Interpretation Code 0.0-2.0 [facility] Comment on above: Order Comment: Y Result Comment: Crit ical Result(s) Called to Candace RN (ER): Allison:??Results read back by same. Performed By: #### L 500.4050, L503.6005, L300.3900, L300.4310, M200.1000, L501.3620, L100.0100 ####[facility] [address] [place], [address] Lactic acid measurementOrder ed By: Monica Alvarado on 04-20-2024 Lactic acid measurement 3.0 mmol/L High 0.0-2.0 [facility] Leukocyte esterase Test stri p Ql (U)Ordered By: Monica Alvarado on 04-20-2024 Urine leukocyte esterase detection by dipstick 100 /ul High Negative [facility] Lymphocytes Auto (Unsp spec) [#/Vol]Ordered By: Monica Alvarado on 04-20-2024 Absolute lymphocyte count 1.72 X10^3/uL 0.83-4.51 [facility] Lymphocytes/100 WBC Auto (Un sp spec)Ordered By: Monica Alvarado on 04-20-2024 Automated lymphocyte count as percentage of total leukocytes 6.9 % Low 19-41 [facility] M100.678on 04-20-2024 M100.678 Pending SARS-CoV-2 (COVID 19) Negative INFLUENZA A Negative INFLUENZA B Negative RSV PCR Negative Normal [facility] Comment on above: Performed By: #### M 100.2200, M100.678, L400.0001 ####[facility] [address] [place], [address] M8200.1000on 04-20-2024 M8200.1000 Normal Reference Ran ge = Negative MRSA DNA Nose Ql MARILEE+probe GeneXpert Instrument, PCR method MRSA PCR MRSA NEGATIVE Normal [facility] Comment on above: Performed By: #### M 8200.1000 ####[facility] [address] [place], [address] MCV (RBC) [Entitic vol]Order ed By: Monica Alvarado on 04-20-2024 MCV (mean corpuscular volume) determination 86.6 fL 81-99 [facility] Magnesium (Unsp spec) [Mass/ Vol]Ordered By: Kanwal Aguilar on 04-20-2024 Magnesium measurement (mass/volume) 2.1 mg/dL 1.5-2.2 [facility] Manual differential comment Minesh (Bld) [Interp]Ordered By: Monica Alvarado on 04-20-2024 Blood manual differential comment interpretation (narrative result) SCANNED [facility] Mean corpuscular hemoglobin (MCH) determinationOrdered By: Monica Alvarado on 04-20-2024 Mean corpuscular hemoglobin (MCH) determination 29.0 pg 27.0-32.0 [facility] Mean corpuscular hemoglobin concentration (MCHC) determinationOrdered By: Monica Alvarado on 04-20-2024 Mean corpuscular hemoglobin concentration (MCHC) determination 33.5 g/dL 32-36 [facility] Mean platelet volume determi nationOrdered By: Monica Alvarado on 04-20-2024 Mean platelet volume determination 9.6 fl 6.2-12.0 [facility] Microscopic analysis of urin e for red blood cells (RBC)Ordered By: Monica Alvarado on 04-20-2024 Microscopic analysis of urine for red blood cells (RBC) 0-5 SEEN /hpf 5-10 [facility] Monocyte percentageOrdered B y: Monica Alvarado on 04-20-2024 Monocyte percentage 5.6 % 0-10 [facility] Mucus LM Ql (Urine sed)Order ed By: Monica Alvarado on 04-20-2024 Mucus detection in urine sediment by light microscopy 1+ /hpf [facility] Neutrophil percentageOrdered By: Monica Alvarado on 04-20-2024 Neutrophil percentage 86.6 % High 47-70 [facility] Nitrite Test strip Ql (U)Ord ered By: Monica Alvarado on 04-20-2024 Urine nitrite test by dipstick Negative Negative [facility] No Panel InformationOrdered By: Kanwal Aguilar on 04-20-2024 ART [facility] R Brach [facility] Not entered [facility] Room Air [facility] No Panel InformationOrdered By: Monica Alvarado on 04-20-2024 70 U/L High <32 [facility] Nucleated red blood cell per centageOrdered By: Monica Alvarado on 04-20-2024 Nucleated red blood cell percentage 0 % 0-5 [facility] Oxygen saturation measuremen tOrdered By: Kanwal Aguilar on 04-20-2024 Oxygen saturation measurement 95 % 95-99 [facility] Partial Thromboplast Timeon 04-20-2024 aPTT Coag (Bld) [Time] 25.1 s Normal 24.1-36.2 [facility] Comment on above: Performed By: #### L 500.4050, L503.6005, L300.3900, L300.4310, M200.1000, L501.3620, L100.0100 ####[facility] [address] [place], [place], [id number] Partial pressure of carbon d ioxide measurementOrdered By: Kanwal Aguilar on 04-20-2024 Partial pressure of carbon dioxide measurement 30.5 mmHg Low 35-45 [facility] Partial pressure of oxygen m easurementOrdered By: Kanwal Aguilar on 04-20-2024 Partial pressure of oxygen measurement 70 mmHG Low 75-100 [facility] Pelvis 1 or 2 Viewson 2024 Pelvis 1 or 2 Views Normal [facility] Platelet countOrdered By: Eleni Alvarado on 04-20-2024 Platelet count 359 K/mm3 150-450 [facility] Potassium (Unsp spec) [Mass/ Vol]Ordered By: Monica Alvarado on 04-20-2024 Potassium measurement (mass/volume) 4.0 mmol/L 3.3-5.1 [facility] Protein Test strip Ql (U)Ord ered By: Monica Alvarado on 04-20-2024 Urine protein assay by test strip, semi-quantitative 500 mg/dl High Negative [facility] Prothrombin Time w/INRon INR Coag (PPP) [Relative time] 1.2 {INR} Normal [facility] Comment on above: Performed By: #### L 500.4050, L503.6005, L300.3900, L300.4310, M200.1000, L501.3620, L100.0100 ####[facility] [address] [place], [address] PT Coag (PPP) [Time] 15.1 s High 11.7-14.9 [facility] Comment on above: Performed By: #### L 500.4050, L503.6005, L300.3900, L300.4310, M200.1000, L501.3620, L100.0100 ####[facility] [address] [place], [address] Prothrombin timeOrdered By: Monica Alvarado on 04-20-2024 Prothrombin time 15.1 SECONDS High 11.7-14.9 [facility] RBC Auto (Bld) [#/Vol]Ordere d By: Monica Alvarado on 04-20-2024 Automated blood erythrocyte count 5.89 M/mm3 High 4.2-5.4 [facility] Serum globulin measurementOr dered By: Monica Alvarado on 04-20-2024 Serum globulin measurement 3.6 g/dL 2.2-4.2 [facility] Serum phosphorus measurement Ordered By: Kanwal Aguilar on 04-20-2024 Serum phosphorus measurement 2.2 mg/dL Low 2.7-4.5 [facility] Sodium levelOrdered By: Monica Alvarado on 04-20-2024 Sodium level 144 mmol/L 133-145 [facility] Specific gravity (U) [Rel de nsity]Ordered By: Monica Alvarado on 04-20-2024 Urine specific gravity measurement 1.020 1.002-1.030 [facility] Spine Cervical without Contr ason 04-20-2024 Spine Cervical without Contras Normal [facility] Total carbon dioxide measure mentOrdered By: Kanwal Aguilar on 04-20-2024 Total carbon dioxide measurement 22 mmol/L [facility] Total proteinOrdered By: Kadie Alvarado on 04-20-2024 Total protein 8.1 g/dL 5.9-8.4 [facility] Urea nitrogen [Mass/Vol]Orde red By: Monica Alvarado on 04-20-2024 Serum or plasma urea nitrogen measurement (mass/volume) 47 mg/dL High 4-19 [facility] Urinalysis, Completeon 04-20 BACTERIA 2+ /hpf Normal None Seen [facility] Comment on above: Order Comment: DAYAN CTOR TO SPECIFY Performed By: #### M 100.2200, M100.678, L400.0001 ####[facility] [address] [place], [address] EPI,SQUAMOUS 0-5 SEEN Normal 5-10 [facility] Comment on above: Order Comment: DAYAN CTOR TO SPECIFY Performed By: #### M 100.2200, M100.678, L400.0001 ####[facility] [address] [place], [address] Mucus Ql (Urine sed) 1+ /hpf Normal [facility] Comment on above: Order Comment: COLLE CTOR TO SPECIFY Performed By: #### M 100.2200, M100.678, L400.0001 ####[facility] [address] [place], [address] RBC 0-5 SEEN Normal 0-5 [facility] Comment on above: Order Comment: DAYAN CTOR TO SPECIFY Performed By: #### M 100.2200, M100.678, L400.0001 ####[facility] [address] [place], [address] WBC 10-25 SEEN Normal 0-5 [facility] Comment on above: Order Comment: DAYAN CTOR TO SPECIFY Performed By: #### M 100.2200, M100.678, L400.0001 ####[facility] [address] [place], [address] Urine blood detectionOrdered By: Monica Alvarado on 04-20-2024 Urine blood detection 250 /ul High Negative [facility] Urine cultureOrdered By: Kadie Alvarado on 04-20-2024 Urine culture Enterococcus faecalis Abnormal [facility] Urine culture Staphylococcus simulans Abnormal [facility] Urine culture Staphylococcus aureus Abnormal [facility] Urine glucose detectionOrder ed By: Monica Alvarado on 04-20-2024 Urine glucose detection Normal mg/dl Normal [facility] White blood cell (WBC) count Ordered By: Monica Alvarado on 04-20-2024 White blood cell (WBC) count 25.0 K/mm3 High 4.4-11.0 [facility] White blood cell countOrdere d By: Monica Alvarado on 04-20-2024 White blood cell count 10-25 SEEN /hpf 0-5 [facility] aPTT Coag (PPP) [Time]Ordere d By: Monica Alvarado on 04-20-2024 Activated partial thromboplastin time (aPTT) in platelet poor plasma by coagulation a 25.1 Seconds 24.1-36.2 [facility] pH (U)Ordered By: Monica garsia on 04-20-2024 Urine pH 5.0 5.0 - 8.0 [facility] pH (Unsp spec)Ordered By: Ananya archie Lauren on 04-20-2024 Measurement, pH 7.44 7.35-7.45 [facility] Basic Metabolic Profile (BMP )on 02-22-2024 BUN Normal 7-18 [facility] Comment on above: Result Comment: Canc elled via OM: Order cancelled - Patient discharged Performed By: #### L 100.0100, L500.2500 ####[facility] [address] [place], [address] BUN/CRE Normal 10-20 [facility] Comment on above: Result Comment: Canc elled via OM: Order cancelled - Patient discharged Performed By: #### L 100.0100, L500.2500 ####[facility] [address] [place], [address] CA,Total Normal 8.5-10.1 [facility] Comment on above: Result Comment: Canc elled via OM: Order cancelled - Patient discharged Performed By: #### L 100.0100, L500.2500 ####[facility] [address] [place], [address] CL Normal 98-107 [facility] Comment on above: Result Comment: Canc elled via OM: Order cancelled - Patient discharged Performed By: #### L 100.0100, L500.2500 ####[facility] [address] [place], [address] CO2 Normal 21.0-32.0 [facility] Comment on above: Result Comment: Canc elled via OM: Order cancelled - Patient discharged Performed By: #### L 100.0100, L500.2500 ####[facility] [address] [place], [address] CREAT,SERUM Normal 0.55-1.02 [facility] Comment on above: Result Comment: Canc elled via OM: Order cancelled - Patient discharged Performed By: #### L 100.0100, L500.2500 ####[facility] [address] [place], [address] EST GFR Normal >60 [facility] Comment on above: Result Comment: Canc elled via OM: Order cancelled - Patient discharged Performed By: #### L 100.0100, L500.2500 ####[facility] [address] [place], [address] EST GFR - AA Normal >60 [facility] Comment on above: Result Comment: Canc elled via OM: Order cancelled - Patient discharged Performed By: #### L 100.0100, L500.2500 ####[facility] [address] [place], [address] GAP Normal 5-15 [facility] Comment on above: Result Comment: Canc elled via OM: Order cancelled - Patient discharged Performed By: #### L 100.0100, L500.2500 ####[facility] [address] [place], [address] GLU Normal 74-106 [facility] Comment on above: Result Comment: Canc elled via OM: Order cancelled - Patient discharged Performed By: #### L 100.0100, L500.2500 ####[facility] [address] [place], [address] Potassium Normal 3.5-5.1 [facility] Comment on above: Result Comment: Canc elled via OM: Order cancelled - Patient discharged Performed By: #### L 100.0100, L500.2500 ####[facility] [address] [place], [address] Basic Metabolic Profile (BMP) Normal 136-145 [facility] Comment on above: Result Comment: Canc elled via OM: Order cancelled - Patient discharged Performed By: #### L 100.0100, L500.2500 ####[facility] [address] [place], [address] CBC W/Diff, Automatedon 01-1 0-2024 Absolute Neut Normal 2.0-7.7 [facility] Comment on above: Result Comment: Canc elled via OM: Order cancelled - Patient discharged Performed By: #### L 100.0100, L500.2500 ####[facility] [address] [place], [address] HCT Normal 37-47 [facility] Comment on above: Result Comment: Canc elled via OM: Order cancelled - Patient discharged Performed By: #### L 100.0100, L500.2500 ####[facility] [address] [place], [address] HGB Normal 12.0-15.0 [facility] Comment on above: Result Comment: Canc elled via OM: Order cancelled - Patient discharged Performed By: #### L 100.0100, L500.2500 ####[facility] [address] [place], [address] MCH Normal 27.0-32.0 [facility] Comment on above: Result Comment: Canc elled via OM: Order cancelled - Patient discharged Performed By: #### L 100.0100, L500.2500 ####[facility] [address] [place], [address] MCHC Normal 32-36 [facility] Comment on above: Result Comment: Canc elled via OM: Order cancelled - Patient discharged Performed By: #### L 100.0100, L500.2500 ####[facility] [address] [place], [address] MCV Normal 81-99 [facility] Comment on above: Result Comment: Canc elled via OM: Order cancelled - Patient discharged Performed By: #### L 100.0100, L500.2500 ####[facility] [address] [place], [address] NEUT% Normal 47-70 [facility] Comment on above: Result Comment: Canc elled via OM: Order cancelled - Patient discharged Performed By: #### L 100.0100, L500.2500 ####[facility] [address] [place], [address] PLT Normal 150-450 [facility] Comment on above: Result Comment: Canc elled via OM: Order cancelled - Patient discharged Performed By: #### L 100.0100, L500.2500 ####[facility] [address] [place], [address] RBC Normal 4.2-5.4 [facility] Comment on above: Result Comment: Canc elled via OM: Order cancelled - Patient discharged Performed By: #### L 100.0100, L500.2500 ####[facility] [address] [place], [address] RDW CV Normal 11.6-14.6 [facility] Comment on above: Result Comment: Canc elled via OM: Order cancelled - Patient discharged Performed By: #### L 100.0100, L500.2500 ####[facility] [address] [place], [address] RDW SD Normal 35.1-43.9 [facility] Comment on above: Result Comment: Canc elled via OM: Order cancelled - Patient discharged Performed By: #### L 100.0100, L500.2500 ####[facility] [address] [place], [address] WBC Normal 4.4-11.0 [facility] Comment on above: Result Comment: Canc elled via OM: Order cancelled - Patient discharged Performed By: #### L 100.0100, L500.2500 ####[facility] [address] [place], [address] Basic Metabolic Profile (BMP )on 02-21-2024 BUN Normal 7-18 [facility] Comment on above: Result Comment: Canc elled via OM: Order cancelled - Patient discharged Performed By: #### L 100.0100, L500.2500 ####[facility] [address] [place], [address] BUN/CRE Normal 10-20 [facility] Comment on above: Result Comment: Canc elled via OM: Order cancelled - Patient discharged Performed By: #### L 100.0100, L500.2500 ####[facility] [address] [place], [address] CA,Total Normal 8.5-10.1 [facility] Comment on above: Result Comment: Canc elled via OM: Order cancelled - Patient discharged Performed By: #### L 100.0100, L500.2500 ####[facility] [address] [place], [address] CL Normal 98-107 [facility] Comment on above: Result Comment: Canc elled via OM: Order cancelled - Patient discharged Performed By: #### L 100.0100, L500.2500 ####[facility] [address] [place], [address] CO2 Normal 21.0-32.0 [facility] Comment on above: Result Comment: Canc elled via OM: Order cancelled - Patient discharged Performed By: #### L 100.0100, L500.2500 ####[facility] [address] [place], [address] CREAT,SERUM Normal 0.55-1.02 [facility] Comment on above: Result Comment: Canc elled via OM: Order cancelled - Patient discharged Performed By: #### L 100.0100, L500.2500 ####[facility] [address] [place], [address] EST GFR Normal >60 [facility] Comment on above: Result Comment: Canc elled via OM: Order cancelled - Patient discharged Performed By: #### L 100.0100, L500.2500 ####[facility] [address] [place], [address] EST GFR - AA Normal >60 [facility] Comment on above: Result Comment: Canc elled via OM: Order cancelled - Patient discharged Performed By: #### L 100.0100, L500.2500 ####[facility] [address] [place], [address] GAP Normal 5-15 [facility] Comment on above: Result Comment: Canc elled via OM: Order cancelled - Patient discharged Performed By: #### L 100.0100, L500.2500 ####[facility] [address] [place], [address] GLU Normal 74-106 [facility] Comment on above: Result Comment: Canc elled via OM: Order cancelled - Patient discharged Performed By: #### L 100.0100, L500.2500 ####[facility] [address] [place], [address] Potassium Normal 3.5-5.1 [facility] Comment on above: Result Comment: Canc elled via OM: Order cancelled - Patient discharged Performed By: #### L 100.0100, L500.2500 ####[facility] [address] [place], [address] Basic Metabolic Profile (BMP) Normal 136-145 [facility] Comment on above: Result Comment: Canc elled via OM: Order cancelled - Patient discharged Performed By: #### L 100.0100, L500.2500 ####[facility] [address] [place], [address] CBC W/Diff, Automatedon 01-0 -2024 Absolute Neut Normal 2.0-7.7 [facility] Comment on above: Result Comment: Canc elled via OM: Order cancelled - Patient discharged Performed By: #### L 100.0100, L500.2500 ####[facility] [address] [place], [address] HCT Normal 37-47 [facility] Comment on above: Result Comment: Canc elled via OM: Order cancelled - Patient discharged Performed By: #### L 100.0100, L500.2500 ####[facility] [address] [place], [address] HGB Normal 12.0-15.0 [facility] Comment on above: Result Comment: Canc elled via OM: Order cancelled - Patient discharged Performed By: #### L 100.0100, L500.2500 ####[facility] [address] [place], [address] MCH Normal 27.0-32.0 [facility] Comment on above: Result Comment: Canc elled via OM: Order cancelled - Patient discharged Performed By: #### L 100.0100, L500.2500 ####[facility] [address] [place], [address] MCHC Normal 32-36 [facility] Comment on above: Result Comment: Canc elled via OM: Order cancelled - Patient discharged Performed By: #### L 100.0100, L500.2500 ####[facility] [address] [place], [address] MCV Normal 81-99 [facility] Comment on above: Result Comment: Canc elled via OM: Order cancelled - Patient discharged Performed By: #### L 100.0100, L500.2500 ####[facility] [address] [place], [address] NEUT% Normal 47-70 [facility] Comment on above: Result Comment: Canc elled via OM: Order cancelled - Patient discharged Performed By: #### L 100.0100, L500.2500 ####[facility] [address] [place], [address] PLT Normal 150-450 [facility] Comment on above: Result Comment: Canc elled via OM: Order cancelled - Patient discharged Performed By: #### L 100.0100, L500.2500 ####[facility] [address] [place], [address] RBC Normal 4.2-5.4 [facility] Comment on above: Result Comment: Canc elled via OM: Order cancelled - Patient discharged Performed By: #### L 100.0100, L500.2500 ####[facility] [address] [place], [address] RDW CV Normal 11.6-14.6 [facility] Comment on above: Result Comment: Canc elled via OM: Order cancelled - Patient discharged Performed By: #### L 100.0100, L500.2500 ####[facility] [address] [place], [address] RDW SD Normal 35.1-43.9 [facility] Comment on above: Result Comment: Canc elled via OM: Order cancelled - Patient discharged Performed By: #### L 100.0100, L500.2500 ####[facility] [address] [place], [address] WBC Normal 4.4-11.0 [facility] Comment on above: Result Comment: Canc elled via OM: Order cancelled - Patient discharged Performed By: #### L 100.0100, L500.2500 ####[facility] [address] [place], [address] Basic Metabolic Profile (BMP )on 02-20-2024 BUN Normal 7-18 [facility] Comment on above: Result Comment: Canc elled via OM: Order cancelled - Patient discharged Performed By: #### L 500.2500, L100.0100 ####[facility] [address] [place], [address] BUN/CRE Normal 10-20 [facility] Comment on above: Result Comment: Canc elled via OM: Order cancelled - Patient discharged Performed By: #### L 500.2500, L100.0100 ####[facility] [address] [place], [address] CA,Total Normal 8.5-10.1 [facility] Comment on above: Result Comment: Canc elled via OM: Order cancelled - Patient discharged Performed By: #### L 500.2500, L100.0100 ####[facility] [address] [place], [address] CL Normal 98-107 [facility] Comment on above: Result Comment: Canc elled via OM: Order cancelled - Patient discharged Performed By: #### L 500.2500, L100.0100 ####[facility] [address] [place], [address] CO2 Normal 21.0-32.0 [facility] Comment on above: Result Comment: Canc elled via OM: Order cancelled - Patient discharged Performed By: #### L 500.2500, L100.0100 ####[facility] [address] [place], [address] CREAT,SERUM Normal 0.55-1.02 [facility] Comment on above: Result Comment: Canc elled via OM: Order cancelled - Patient discharged Performed By: #### L 500.2500, L100.0100 ####[facility] [address] [place], [address] EST GFR Normal >60 [facility] Comment on above: Result Comment: Canc elled via OM: Order cancelled - Patient discharged Performed By: #### L 500.2500, L100.0100 ####[facility] [address] [place], [address] EST GFR - AA Normal >60 [facility] Comment on above: Result Comment: Canc elled via OM: Order cancelled - Patient discharged Performed By: #### L 500.2500, L100.0100 ####[facility] [address] [place], [address] GAP Normal 5-15 [facility] Comment on above: Result Comment: Canc elled via OM: Order cancelled - Patient discharged Performed By: #### L 500.2500, L100.0100 ####[facility] [address] [place], [address] GLU Normal 74-106 [facility] Comment on above: Result Comment: Canc elled via OM: Order cancelled - Patient discharged Performed By: #### L 500.2500, L100.0100 ####[facility] [address] [place], [address] Potassium Normal 3.5-5.1 [facility] Comment on above: Result Comment: Canc elled via OM: Order cancelled - Patient discharged Performed By: #### L 500.2500, L100.0100 ####[facility] [address] [place], [address] Basic Metabolic Profile (BMP) Normal 136-145 [facility] Comment on above: Result Comment: Canc elled via OM: Order cancelled - Patient discharged Performed By: #### L 500.2500, L100.0100 ####[facility] [address] [place], [address] CBC W/Diff, Automatedon 01-0 -2024 Absolute Neut Normal 2.0-7.7 [facility] Comment on above: Result Comment: Canc elled via OM: Order cancelled - Patient discharged Performed By: #### L 500.2500, L100.0100 ####[facility] [address] [place], [address] HCT Normal 37-47 [facility] Comment on above: Result Comment: Canc elled via OM: Order cancelled - Patient discharged Performed By: #### L 500.2500, L100.0100 ####[facility] [address] [place], [address] HGB Normal 12.0-15.0 [facility] Comment on above: Result Comment: Canc elled via OM: Order cancelled - Patient discharged Performed By: #### L 500.2500, L100.0100 ####[facility] [address] [place], [address] MCH Normal 27.0-32.0 [facility] Comment on above: Result Comment: Canc elled via OM: Order cancelled - Patient discharged Performed By: #### L 500.2500, L100.0100 ####[facility] [address] [place], [address] MCHC Normal 32-36 [facility] Comment on above: Result Comment: Canc elled via OM: Order cancelled - Patient discharged Performed By: #### L 500.2500, L100.0100 ####[facility] [address] [place], [address] MCV Normal 81-99 [facility] Comment on above: Result Comment: Canc elled via OM: Order cancelled - Patient discharged Performed By: #### L 500.2500, L100.0100 ####[facility] [address] [place], [address] NEUT% Normal 47-70 [facility] Comment on above: Result Comment: Canc elled via OM: Order cancelled - Patient discharged Performed By: #### L 500.2500, L100.0100 ####[facility] [address] [place], [address] PLT Normal 150-450 [facility] Comment on above: Result Comment: Canc elled via OM: Order cancelled - Patient discharged Performed By: #### L 500.2500, L100.0100 ####[facility] [address] [place], [address] RBC Normal 4.2-5.4 [facility] Comment on above: Result Comment: Canc elled via OM: Order cancelled - Patient discharged Performed By: #### L 500.2500, L100.0100 ####[facility] [address] [place], [address] RDW CV Normal 11.6-14.6 [facility] Comment on above: Result Comment: Canc elled via OM: Order cancelled - Patient discharged Performed By: #### L 500.2500, L100.0100 ####[facility] [address] [place], [address] RDW SD Normal 35.1-43.9 [facility] Comment on above: Result Comment: Canc elled via OM: Order cancelled - Patient discharged Performed By: #### L 500.2500, L100.0100 ####[facility] [address] [place], [address] WBC Normal 4.4-11.0 [facility] Comment on above: Result Comment: Canc elled via OM: Order cancelled - Patient discharged Performed By: #### L 500.2500, L100.0100 ####[facility] [address] [place], [address] Basic Metabolic Profile (BMP )on 02-19-2024 BUN Normal 7-18 [facility] Comment on above: Result Comment: Canc elled via OM: Order cancelled - Patient discharged Performed By: #### L 100.0100, L500.2500 ####[facility] [address] [place], [address] BUN/CRE Normal 10-20 [facility] Comment on above: Result Comment: Canc elled via OM: Order cancelled - Patient discharged Performed By: #### L 100.0100, L500.2500 ####[facility] [address] [place], [address] CA,Total Normal 8.5-10.1 [facility] Comment on above: Result Comment: Canc elled via OM: Order cancelled - Patient discharged Performed By: #### L 100.0100, L500.2500 ####[facility] [address] [place], [address] CL Normal 98-107 [facility] Comment on above: Result Comment: Canc elled via OM: Order cancelled - Patient discharged Performed By: #### L 100.0100, L500.2500 ####[facility] [address] [place], [address] CO2 Normal 21.0-32.0 [facility] Comment on above: Result Comment: Canc elled via OM: Order cancelled - Patient discharged Performed By: #### L 100.0100, L500.2500 ####[facility] [address] [place], [address] CREAT,SERUM Normal 0.55-1.02 [facility] Comment on above: Result Comment: Canc elled via OM: Order cancelled - Patient discharged Performed By: #### L 100.0100, L500.2500 ####[facility] [address] [place], [address] EST GFR Normal >60 [facility] Comment on above: Result Comment: Canc elled via OM: Order cancelled - Patient discharged Performed By: #### L 100.0100, L500.2500 ####[facility] [address] [place], [address] EST GFR - AA Normal >60 [facility] Comment on above: Result Comment: Canc elled via OM: Order cancelled - Patient discharged Performed By: #### L 100.0100, L500.2500 ####[facility] [address] [place], [address] GAP Normal 5-15 [facility] Comment on above: Result Comment: Canc elled via OM: Order cancelled - Patient discharged Performed By: #### L 100.0100, L500.2500 ####[facility] [address] [place], [address] GLU Normal 74-106 [facility] Comment on above: Result Comment: Canc elled via OM: Order cancelled - Patient discharged Performed By: #### L 100.0100, L500.2500 ####[facility] [address] [place], [address] Potassium Normal 3.5-5.1 [facility] Comment on above: Result Comment: Canc elled via OM: Order cancelled - Patient discharged Performed By: #### L 100.0100, L500.2500 ####[facility] [address] [place], [address] Basic Metabolic Profile (BMP) Normal 136-145 [facility] Comment on above: Result Comment: Canc elled via OM: Order cancelled - Patient discharged Performed By: #### L 100.0100, L500.2500 ####[facility] [address] [place], [address] CBC W/Diff, Automatedon 01-0 7-2024 Absolute Neut Normal 2.0-7.7 [facility] Comment on above: Result Comment: Canc elled via OM: Order cancelled - Patient discharged Performed By: #### L 100.0100, L500.2500 ####[facility] [address] [place], [address] HCT Normal 37-47 [facility] Comment on above: Result Comment: Canc elled via OM: Order cancelled - Patient discharged Performed By: #### L 100.0100, L500.2500 ####[facility] [address] [place], [address] HGB Normal 12.0-15.0 [facility] Comment on above: Result Comment: Canc elled via OM: Order cancelled - Patient discharged Performed By: #### L 100.0100, L500.2500 ####[facility] [address] [place], [address] MCH Normal 27.0-32.0 [facility] Comment on above: Result Comment: Canc elled via OM: Order cancelled - Patient discharged Performed By: #### L 100.0100, L500.2500 ####[facility] [address] [place], [address] MCHC Normal 32-36 [facility] Comment on above: Result Comment: Canc elled via OM: Order cancelled - Patient discharged Performed By: #### L 100.0100, L500.2500 ####[facility] [address] [place], [address] MCV Normal 81-99 [facility] Comment on above: Result Comment: Canc elled via OM: Order cancelled - Patient discharged Performed By: #### L 100.0100, L500.2500 ####[facility] [address] [place], [address] NEUT% Normal 47-70 [facility] Comment on above: Result Comment: Canc elled via OM: Order cancelled - Patient discharged Performed By: #### L 100.0100, L500.2500 ####[facility] [address] [place], [address] PLT Normal 150-450 [facility] Comment on above: Result Comment: Canc elled via OM: Order cancelled - Patient discharged Performed By: #### L 100.0100, L500.2500 ####[facility] [address] [place], [address] RBC Normal 4.2-5.4 [facility] Comment on above: Result Comment: Canc elled via OM: Order cancelled - Patient discharged Performed By: #### L 100.0100, L500.2500 ####[facility] [address] [place], [address] RDW CV Normal 11.6-14.6 [facility] Comment on above: Result Comment: Canc elled via OM: Order cancelled - Patient discharged Performed By: #### L 100.0100, L500.2500 ####[facility] [address] [place], [address] RDW SD Normal 35.1-43.9 [facility] Comment on above: Result Comment: Canc elled via OM: Order cancelled - Patient discharged Performed By: #### L 100.0100, L500.2500 ####[facility] [address] [place], [address] WBC Normal 4.4-11.0 [facility] Comment on above: Result Comment: Canc elled via OM: Order cancelled - Patient discharged Performed By: #### L 100.0100, L500.2500 ####[facility] [address] [place], [address] Culture, Blood (WB)on 2024 CUB Blood cultures x2, f rom two different sites No growth in 5 days. Normal [facility] Comment on above: Performed By: #### M 200.1000, L500.4050, L100.0100, L300.4310, L300.3900, L503.6005, L501.4020 ####[facility] [address] [place], [address] Basic Metabolic Profile (BMP )on 02-18-2024 BUN Normal 7-18 [facility] Comment on above: Result Comment: Canc elled via OM: Order cancelled - Patient discharged Performed By: #### L 100.0100, L500.2500 ####[facility] [address] [place], [address] BUN/CRE Normal 10-20 [facility] Comment on above: Result Comment: Canc elled via OM: Order cancelled - Patient discharged Performed By: #### L 100.0100, L500.2500 ####[facility] [address] [place], [address] CA,Total Normal 8.5-10.1 [facility] Comment on above: Result Comment: Canc elled via OM: Order cancelled - Patient discharged Performed By: #### L 100.0100, L500.2500 ####[facility] [address] [place], [address] CL Normal 98-107 [facility] Comment on above: Result Comment: Canc elled via OM: Order cancelled - Patient discharged Performed By: #### L 100.0100, L500.2500 ####[facility] [address] [place], [address] CO2 Normal 21.0-32.0 [facility] Comment on above: Result Comment: Canc elled via OM: Order cancelled - Patient discharged Performed By: #### L 100.0100, L500.2500 ####[facility] [address] [place], [address] CREAT,SERUM Normal 0.55-1.02 [facility] Comment on above: Result Comment: Canc elled via OM: Order cancelled - Patient discharged Performed By: #### L 100.0100, L500.2500 ####[facility] [address] [place], [address] EST GFR Normal >60 [facility] Comment on above: Result Comment: Canc elled via OM: Order cancelled - Patient discharged Performed By: #### L 100.0100, L500.2500 ####[facility] [address] [place], [address] EST GFR - AA Normal >60 [facility] Comment on above: Result Comment: Canc elled via OM: Order cancelled - Patient discharged Performed By: #### L 100.0100, L500.2500 ####[facility] [address] [place], [address] GAP Normal 5-15 [facility] Comment on above: Result Comment: Canc elled via OM: Order cancelled - Patient discharged Performed By: #### L 100.0100, L500.2500 ####[facility] [address] [place], [address] GLU Normal 74-106 [facility] Comment on above: Result Comment: Canc elled via OM: Order cancelled - Patient discharged Performed By: #### L 100.0100, L500.2500 ####[facility] [address] [place], [address] Potassium Normal 3.5-5.1 [facility] Comment on above: Result Comment: Canc elled via OM: Order cancelled - Patient discharged Performed By: #### L 100.0100, L500.2500 ####[facility] [address] [place], [address] Basic Metabolic Profile (BMP) Normal 136-145 [facility] Comment on above: Result Comment: Canc elled via OM: Order cancelled - Patient discharged Performed By: #### L 100.0100, L500.2500 ####[facility] [address] [place], [address] CBC W/Diff, Automatedon 01-0 -2024 Absolute Neut Normal 2.0-7.7 [facility] Comment on above: Result Comment: Canc elled via OM: Order cancelled - Patient discharged Performed By: #### L 100.0100, L500.2500 ####[facility] [address] [place], [address] HCT Normal 37-47 [facility] Comment on above: Result Comment: Canc elled via OM: Order cancelled - Patient discharged Performed By: #### L 100.0100, L500.2500 ####[facility] [address] [place], [address] HGB Normal 12.0-15.0 [facility] Comment on above: Result Comment: Canc elled via OM: Order cancelled - Patient discharged Performed By: #### L 100.0100, L500.2500 ####[facility] [address] [place], [address] MCH Normal 27.0-32.0 [facility] Comment on above: Result Comment: Canc elled via OM: Order cancelled - Patient discharged Performed By: #### L 100.0100, L500.2500 ####[facility] [address] [place], [address] MCHC Normal 32-36 [facility] Comment on above: Result Comment: Canc elled via OM: Order cancelled - Patient discharged Performed By: #### L 100.0100, L500.2500 ####[facility] [address] [place], [address] MCV Normal 81-99 [facility] Comment on above: Result Comment: Canc elled via OM: Order cancelled - Patient discharged Performed By: #### L 100.0100, L500.2500 ####[facility] [address] [place], [address] NEUT% Normal 47-70 [facility] Comment on above: Result Comment: Canc elled via OM: Order cancelled - Patient discharged Performed By: #### L 100.0100, L500.2500 ####[facility] [address] [place], [address] PLT Normal 150-450 [facility] Comment on above: Result Comment: Canc elled via OM: Order cancelled - Patient discharged Performed By: #### L 100.0100, L500.2500 ####[facility] [address] [place], [address] RBC Normal 4.2-5.4 [facility] Comment on above: Result Comment: Canc elled via OM: Order cancelled - Patient discharged Performed By: #### L 100.0100, L500.2500 ####[facility] [address] [place], [address] RDW CV Normal 11.6-14.6 [facility] Comment on above: Result Comment: Canc elled via OM: Order cancelled - Patient discharged Performed By: #### L 100.0100, L500.2500 ####[facility] [address] [place], [address] RDW SD Normal 35.1-43.9 [facility] Comment on above: Result Comment: Canc elled via OM: Order cancelled - Patient discharged Performed By: #### L 100.0100, L500.2500 ####[facility] [address] [place], [address] WBC Normal 4.4-11.0 [facility] Comment on above: Result Comment: Canc elled via OM: Order cancelled - Patient discharged Performed By: #### L 100.0100, L500.2500 ####[facility] [address] [place], [address] Absolute neutrophil countOrd ered By: Jordana Hopkins on 02-17-2024 Absolute neutrophil count 6.4 X10^3/uL 2.0-7.7 [facility] Basic Metabolic Profile (BMP )on 02-17-2024 BUN/CRE 22.4 RATIO High 10-20 [facility] Comment on above: Performed By: #### L 500.2500, L100.0100 ####[facility] [address] [place], [address] CA,Total 9.2 mg/dL Normal 8.5-10.1 [facility] Comment on above: Performed By: #### L 500.2500, L100.0100 ####[facility] [address] [place], [address] Chloride [Moles/Vol] 110 mmol/L High 98-107 [facility] Comment on above: Performed By: #### L 500.2500, L100.0100 ####[facility] [address] [place], [address] CO2 [Moles/Vol] 26.0 mmol/L Normal 21.0-32.0 [facility] Comment on above: Performed By: #### L 500.2500, L100.0100 ####[facility] [address] [place], [address] Creatinine [Mass/Vol] 0.76 mg/dL Normal 0.55-1.02 [facility] Comment on above: Result Comment: The validity of the calculated GFR GFRAA in patients over70 years has not been determined. Clinical correlation isessential. Performed By: #### L 500.2500, L100.0100 ####[facility] [address] [place], [address] ECRCL 58.88 ml/min Normal [facility] Comment on above: Performed By: #### L 500.2500, L100.0100 ####[facility] [address] [place], [address] EST GFR - AA 97 mL/min Normal >60 [facility] Comment on above: Result Comment: Afri can Croatian GFR Calc Performed By: #### L 500.2500, L100.0100 ####[facility] [address] [place], [address] GAP 6 Normal 5-15 [facility] Comment on above: Performed By: #### L 500.2500, L100.0100 ####[facility] [address] [place], [address] GFR/1.73 sq M.predicted among non-blacks MDRD (S/P/Bld) [Vol rate/Area] 80 mL/min/{1.73_m2} Normal >60 [facility] Comment on above: Result Comment: Non- GFR Calc Performed By: #### L 500.2500, L100.0100 ####[facility] [address] [place], [address] Glucose [Mass/Vol] 139 mg/dL High 74-106 [facility] Comment on above: Result Comment: Fast ing Glucose result greater than or equal to 126 mg/dLsuggests DIABETES MELLITUS per A.D.A. criteria. Performed By: #### L 500.2500, L100.0100 ####[facility] [address] [place], [address] Potassium [Moles/Vol] 3.3 mmol/L Low 3.5-5.1 [facility] Comment on above: Performed By: #### L 500.2500, L100.0100 ####[facility] [address] [place], [address] Sodium [Moles/Vol] 142 mmol/L Normal 136-145 [facility] Comment on above: Performed By: #### L 500.2500, L100.0100 ####[facility] [address] [place], [address] Urea nitrogen [Mass/Vol] 17 mg/dL Normal 7-18 [facility] Comment on above: Performed By: #### L 500.2500, L100.0100 ####[facility] [address] [place], [address] Basophil percentageOrdered B y: Jordana Hopkins on 02-17-2024 Basophil percentage 0.2 % 0-1 [facility] Bedside Glucoseon 02-17-2024 FINGERSTICK GLU 134 mg/dL High 74-106 [facility] Comment on above: Result Comment: GERALDO GEMENT OF PATIENT CARE PER NURSING PROTOCOL Performed By: #### L 501.080 ####[facility] [address] [place], [address] FINGERSTICK GLU 129 mg/dL High 74-106 [facility] Comment on above: Result Comment: GERALDO GEMENT OF PATIENT CARE PER NURSING PROTOCOL Performed By: #### L 501.080 ####[facility] [address] [place], [address] FINGERSTICK GLU 191 mg/dL High 74-106 [facility] Comment on above: Result Comment: GERALDO GEMENT OF PATIENT CARE PER NURSING PROTOCOL Performed By: #### L 501.080 ####[facility] [address] [place], [address] FINGERSTICK GLU 139 mg/dL High 74-106 [facility] Comment on above: Result Comment: GERALDO GEMENT OF PATIENT CARE PER NURSING PROTOCOL Performed By: #### L 501.080 ####[facility] [address] [place], [address] Blood urea nitrogen (BUN)/cr eatinine ratioOrdered By: Jordana Hopkins on 02-17-2024 Blood urea nitrogen (BUN)/creatinine ratio 22.4 RATIO High 10-20 [facility] CBC W/Diff, Automatedon Absolute Lymph 3.32 X10 3/uL Normal 0.83-4.51 [facility] Comment on above: Performed By: #### L 500.2500, L100.0100 ####[facility] [address] [place], [address] Absolute Neut 6.4 X10 3/uL Normal 2.0-7.7 [facility] Comment on above: Performed By: #### L 500.2500, L100.0100 ####[facility] [address] [place], [address] Basophils/100 WBC (Bld) 0.2 % Normal 0-1 [facility] Comment on above: Performed By: #### L 500.2500, L100.0100 ####[facility] [address] [place], [address] Eosinophils/100 WBC (Bld) 2.2 % Normal 0-5 [facility] Comment on above: Performed By: #### L 500.2500, L100.0100 ####[facility] [address] [place], [address] Erythrocyte distribution width (RBC) [Ratio] 13.2 % Normal 11.6-14.6 [facility] Comment on above: Performed By: #### L 500.2500, L100.0100 ####[facility] [address] [place], [address] Hematocrit (Bld) [Volume fraction] 33.0 % Low 37-47 [facility] Comment on above: Performed By: #### L 500.2500, L100.0100 ####[facility] [address] [place], [address] Hemoglobin (Bld) [Mass/Vol] 10.3 g/dL Low 12.0-15.0 [facility] Comment on above: Performed By: #### L 500.2500, L100.0100 ####[facility] [address] [place], [address] IG% 0.200 Normal 0.0-0.9 [facility] Comment on above: Result Comment: IG% - Immature Granulocytes (promyelocytes, myelocytes andmetamyelocytes) > 1% indicates that a LEFT SHIFT is Present. Performed By: #### L 500.2500, L100.0100 ####[facility] [address] [place], [address] Lymphocytes/100 WBC (Bld) 31.1 % Normal 19-41 [facility] Comment on above: Performed By: #### L 500.2500, L100.0100 ####[facility] [address] [place], [address] MCH (RBC) [Entitic mass] 28.7 pg Normal 27.0-32.0 [facility] Comment on above: Performed By: #### L 500.2500, L100.0100 ####[facility] [address] [place], [address] MCHC (RBC) [Mass/Vol] 31.2 g/dL Low 32-36 [facility] Comment on above: Performed By: #### L 500.2500, L100.0100 ####[facility] [address] [place], [address] MCV (RBC) [Entitic vol] 91.9 fL Normal 81-99 [facility] Comment on above: Performed By: #### L 500.2500, L100.0100 ####[facility] [address] [place], [address] Monocytes/100 WBC (Bld) 6.4 % Normal 0-10 [facility] Comment on above: Performed By: #### L 500.2500, L100.0100 ####[facility] [address] [place], [address] Neutrophils/100 WBC (Bld) 59.9 % Normal 47-70 [facility] Comment on above: Performed By: #### L 500.2500, L100.0100 ####[facility] [address] [place], [address] Nucleated RBC (Bld) [#/Vol] 0 10*3/uL Normal 0-5 [facility] Comment on above: Performed By: #### L 500.2500, L100.0100 ####[facility] [address] [place], [address] Platelet mean volume (Bld) [Entitic vol] 9.6 fL Normal 6.2-12.0 [facility] Comment on above: Performed By: #### L 500.2500, L100.0100 ####[facility] [address] [place], [address] Platelets (Bld) [#/Vol] 226 10*3/uL Normal 150-450 [facility] Comment on above: Performed By: #### L 500.2500, L100.0100 ####[facility] [address] [place], [address] RBC (Bld) [#/Vol] 3.59 10*6/uL Low 4.2-5.4 [facility] Comment on above: Performed By: #### L 500.2500, L100.0100 ####[facility] [address] [place], [address] RDW SD 44.3 fl High 35.1-43.9 [facility] Comment on above: Performed By: #### L 500.2500, L100.0100 ####[facility] [address] [place], [address] WBC (Bld) [#/Vol] 10.7 10*3/uL Normal 4.4-11.0 [facility] Comment on above: Performed By: #### L 500.2500, L100.0100 ####[facility] [address] [place], [address] Calcium [Mass/Vol]Ordered By : Jordana Hopkins on 02-17-2024 Serum or plasma calcium measurement (mass/volume) 9.2 mg/dL 8.5-10.1 [facility] Carbon dioxide measurementOr dered By: Jordana Hopkins on 02-17-2024 Carbon dioxide measurement 26.0 mmol/L 21.0-32.0 [facility] Chloride measurementOrdered By: Jordana Hopkins on 02-17-2024 Chloride measurement 110 mmol/L High 98-107 [facility] Creatinine [Mass/Vol]Ordered By: Jordana Hopkins on 02-17-2024 Serum or plasma creatinine measurement (mass/volume) 0.76 mg/dL 0.55-1.02 [facility] Discharge Instructionon - Discharge Instruction Normal [facility] Eosinophil percentageOrdered By: Jordana Hopkins on 02-17-2024 Eosinophil percentage 2.2 % 0-5 [facility] Erythrocyte distribution wid th (RBC) [Ratio]Ordered By: Jordana Hopkins on 02-17-2024 Erythrocyte distribution width ratio 13.2 % 11.6-14.6 [facility] Erythrocyte distribution wid th standard deviationOrdered By: Jordana Hopkins on 02-17-2024 Erythrocyte distribution width standard deviation 44.3 fl High 35.1-43.9 [facility] Estimated glomerular filtrat ion rate (GFR) AmericanOrdered By: Jordana Hopkins on 02-17-2024 Estimated glomerular filtration rate (GFR) 97 mL/min >60 [facility] Estimation of creatinine maribel aranceOrdered By: Jordana Hopkins on 02-17-2024 Estimation of creatinine clearance 58.88 ml/min [facility] Glomerular filtration rate ( GFR) estimationOrdered By: Jordana Hopkins on 02-17-2024 Glomerular filtration rate (GFR) estimation 80 mL/min >60 [facility] Glucose measurementOrdered B y: Jordana Hopkins on 02-17-2024 Glucose measurement 139 mg/dL High 74-106 [facility] Glucose measurement at bedsi deOrdered By: Jordana Hopkins on 02-17-2024 Glucose measurement at bedside 134 mg/dL High 74-106 [facility] Hematocrit Auto (Bld) [Volum e fraction]Ordered By: Jordana Hopkins on 02-17-2024 Automated blood hematocrit (percentage) 33.0 % Low 37-47 [facility] Hemoglobin measurementOrdere d By: Jordana Hopkins on 02-17-2024 Hemoglobin measurement 10.3 g/dL Low 12.0-15.0 [facility] Immature granulocytes/100 WB C Auto (Bld)Ordered By: Jordana Hopkins on 02-17-2024 Automated immature granulocyte percentage 0.200 % 0.0-0.9 [facility] Lymphocytes Auto (Unsp spec) [#/Vol]Ordered By: Jordana Hopkins on 02-17-2024 Absolute lymphocyte count 3.32 X10^3/uL 0.83-4.51 [facility] Lymphocytes/100 WBC Auto (Un sp spec)Ordered By: Jordana Hopkins on 02-17-2024 Automated lymphocyte count as percentage of total leukocytes 31.1 % 19-41 [facility] MCV (RBC) [Entitic vol]Order ed By: Jordana Hopkins on 02-17-2024 MCV (mean corpuscular volume) determination 91.9 fL 81-99 [facility] Mean corpuscular hemoglobin (MCH) determinationOrdered By: Jordana Hopkins on 02-17-2024 Mean corpuscular hemoglobin (MCH) determination 28.7 pg 27.0-32.0 [facility] Mean corpuscular hemoglobin concentration (MCHC) determinationOrdered By: Jordana Hopkins on 02-17-2024 Mean corpuscular hemoglobin concentration (MCHC) determination 31.2 g/dL Low 32-36 [facility] Mean platelet volume determi nationOrdered By: Jordana Hopkins on 02-17-2024 Mean platelet volume determination 9.6 fl 6.2-12.0 [facility] Monocyte percentageOrdered B y: Jordana Hopkins on 02-17-2024 Monocyte percentage 6.4 % 0-10 [facility] Neutrophil percentageOrdered By: Jordana Hopkins on 02-17-2024 Neutrophil percentage 59.9 % 47-70 [facility] Nucleated red blood cell per centageOrdered By: Jordana Hopkins on 02-17-2024 Nucleated red blood cell percentage 0 % 0-5 [facility] Platelet countOrdered By: Meaghan Hopkins on 02-17-2024 Platelet count 226 K/mm3 150-450 [facility] Potassium measurementOrdered By: Jordana Hopkins on 02-17-2024 Potassium measurement 3.3 mmol/L Low 3.5-5.1 [facility] RBC Auto (Bld) [#/Vol]Ordere d By: Jordana Hopkins on 02-17-2024 Automated blood erythrocyte count 3.59 M/mm3 Low 4.2-5.4 [facility] Serum anion gap measurementO rdered By: Jordana Hopkins on 02-17-2024 Serum anion gap measurement 6 5-15 [facility] Sodium levelOrdered By: Jordana Hopkins on 02-17-2024 Sodium level 142 mmol/L 136-145 [facility] Urea nitrogen [Mass/Vol]Orde red By: Jordana Hopkins on 02-17-2024 Serum or plasma urea nitrogen measurement (mass/volume) 17 mg/dL 7-18 [facility] White blood cell (WBC) count Ordered By: Jordana Hopkins on 02-17-2024 White blood cell (WBC) count 10.7 K/mm3 4.4-11.0 [facility] Basic Metabolic Profile (BMP )on 02-16-2024 BUN/CRE 28.0 RATIO High 10-20 [facility] Comment on above: Performed By: #### L 100.0100, L500.2500 ####[facility] [address] [place], [address] CA,Total 8.9 mg/dL Normal 8.5-10.1 [facility] Comment on above: Performed By: #### L 100.0100, L500.2500 ####[facility] [address] [place], [address] Chloride [Moles/Vol] 111 mmol/L High 98-107 [facility] Comment on above: Performed By: #### L 100.0100, L500.2500 ####[facility] [address] [place], [address] CO2 [Moles/Vol] 25.0 mmol/L Normal 21.0-32.0 [facility] Comment on above: Performed By: #### L 100.0100, L500.2500 ####[facility] [address] [place], [address] Creatinine [Mass/Vol] 0.82 mg/dL Normal 0.55-1.02 [facility] Comment on above: Result Comment: The validity of the calculated GFR GFRAA in patients over70 years has not been determined. Clinical correlation isessential. Performed By: #### L 100.0100, L500.2500 ####[facility] [address] [place], [address] ECRCL 62.20 ml/min Normal [facility] Comment on above: Performed By: #### L 100.0100, L500.2500 ####[facility] [address] [place], [address] EST GFR - AA 88 mL/min Normal >60 [facility] Comment on above: Result Comment: Afri can Croatian GFR Calc Performed By: #### L 100.0100, L500.2500 ####[facility] [address] [place], [address] GAP 5 Normal 5-15 [facility] Comment on above: Performed By: #### L 100.0100, L500.2500 ####[facility] [address] [place], [address] GFR/1.73 sq M.predicted among non-blacks MDRD (S/P/Bld) [Vol rate/Area] 73 mL/min/{1.73_m2} Normal >60 [facility] Comment on above: Result Comment: Non- GFR Calc Performed By: #### L 100.0100, L500.2500 ####[facility] [address] [place], [address] Glucose [Mass/Vol] 131 mg/dL High 74-106 [facility] Comment on above: Result Comment: Fast ing Glucose result greater than or equal to 126 mg/dLsuggests DIABETES MELLITUS per A.D.A. criteria. Performed By: #### L 100.0100, L500.2500 ####[facility] [address] [place], [address] Potassium [Moles/Vol] 4.0 mmol/L Normal 3.5-5.1 [facility] Comment on above: Performed By: #### L 100.0100, L500.2500 ####[facility] [address] [place], [address] Sodium [Moles/Vol] 142 mmol/L Normal 136-145 [facility] Comment on above: Performed By: #### L 100.0100, L500.2500 ####[facility] [address] [place], [address] Urea nitrogen [Mass/Vol] 23 mg/dL High 7-18 [facility] Comment on above: Performed By: #### L 100.0100, L500.2500 ####[facility] [address] [place], [address] Bedside Glucoseon 02-16-2024 FINGERSTICK GLU 163 mg/dL High 74-106 [facility] Comment on above: Result Comment: GERALDO GEMENT OF PATIENT CARE PER NURSING PROTOCOL Performed By: #### L 501.080 ####[facility] [address] [place], [address] FINGERSTICK GLU 130 mg/dL High 74-106 [facility] Comment on above: Result Comment: GERALDO GEMENT OF PATIENT CARE PER NURSING PROTOCOL Performed By: #### L 501.080 ####[facility] [address] [place], [address] FINGERSTICK GLU 107 mg/dL High 74-106 [facility] Comment on above: Result Comment: GERALDO GEMENT OF PATIENT CARE PER NURSING PROTOCOL Performed By: #### L 501.080 ####[facility] [address] [place], [address] FINGERSTICK GLU 141 mg/dL High 74-106 [facility] Comment on above: Result Comment: GERALDO GEMENT OF PATIENT CARE PER NURSING PROTOCOL Performed By: #### L 501.080 ####[facility] [address] [place], [address] CBC W/Diff, Automatedon 01-0 4-2024 Absolute Lymph 2.93 X10 3/uL Normal 0.83-4.51 [facility] Comment on above: Performed By: #### L 100.0100, L500.2500 ####[facility] [address] [place], [address] Absolute Neut 7.8 X10 3/uL High 2.0-7.7 [facility] Comment on above: Performed By: #### L 100.0100, L500.2500 ####[facility] [address] [place], [address] Basophils/100 WBC (Bld) 0.2 % Normal 0-1 [facility] Comment on above: Performed By: #### L 100.0100, L500.2500 ####[facility] [address] [place], [address] Eosinophils/100 WBC (Bld) 1.1 % Normal 0-5 [facility] Comment on above: Performed By: #### L 100.0100, L500.2500 ####[facility] [address] [place], [address] Erythrocyte distribution width (RBC) [Ratio] 13.4 % Normal 11.6-14.6 [facility] Comment on above: Performed By: #### L 100.0100, L500.2500 ####[facility] [address] [place], [address] Hematocrit (Bld) [Volume fraction] 33.5 % Low 37-47 [facility] Comment on above: Performed By: #### L 100.0100, L500.2500 ####[facility] [address] [place], [address] Hemoglobin (Bld) [Mass/Vol] 10.5 g/dL Low 12.0-15.0 [facility] Comment on above: Performed By: #### L 100.0100, L500.2500 ####[facility] [address] [place], [address] IG% 0.400 Normal 0.0-0.9 [facility] Comment on above: Result Comment: IG% - Immature Granulocytes (promyelocytes, myelocytes andmetamyelocytes) > 1% indicates that a LEFT SHIFT is Present. Performed By: #### L 100.0100, L500.2500 ####[facility] [address] [place], [address] Lymphocytes/100 WBC (Bld) 25.0 % Normal 19-41 [facility] Comment on above: Performed By: #### L 100.0100, L500.2500 ####[facility] [address] [place], [address] MCH (RBC) [Entitic mass] 29.4 pg Normal 27.0-32.0 [facility] Comment on above: Performed By: #### L 100.0100, L500.2500 ####[facility] [address] [place], [address] MCHC (RBC) [Mass/Vol] 31.3 g/dL Low 32-36 [facility] Comment on above: Performed By: #### L 100.0100, L500.2500 ####[facility] [address] [place], [address] MCV (RBC) [Entitic vol] 93.8 fL Normal 81-99 [facility] Comment on above: Performed By: #### L 100.0100, L500.2500 ####[facility] [address] [place], [address] Monocytes/100 WBC (Bld) 6.7 % Normal 0-10 [facility] Comment on above: Performed By: #### L 100.0100, L500.2500 ####[facility] [address] [place], [address] Neutrophils/100 WBC (Bld) 66.6 % Normal 47-70 [facility] Comment on above: Performed By: #### L 100.0100, L500.2500 ####[facility] [address] [place], [address] Nucleated RBC (Bld) [#/Vol] 0 10*3/uL Normal 0-5 [facility] Comment on above: Performed By: #### L 100.0100, L500.2500 ####[facility] [address] [place], [address] Platelet mean volume (Bld) [Entitic vol] 10.0 fL Normal 6.2-12.0 [facility] Comment on above: Performed By: #### L 100.0100, L500.2500 ####[facility] [address] [place], [address] Platelets (Bld) [#/Vol] 236 10*3/uL Normal 150-450 [facility] Comment on above: Performed By: #### L 100.0100, L500.2500 ####[facility] [address] [place], [address] RBC (Bld) [#/Vol] 3.57 10*6/uL Low 4.2-5.4 [facility] Comment on above: Performed By: #### L 100.0100, L500.2500 ####[facility] [address] [place], [address] RDW SD 46.5 fl High 35.1-43.9 [facility] Comment on above: Performed By: #### L 100.0100, L500.2500 ####[facility] [address] [place], [address] WBC (Bld) [#/Vol] 11.7 10*3/uL High 4.4-11.0 [facility] Comment on above: Performed By: #### L 100.0100, L500.2500 ####[facility] [address] [place], [address] Basic Metabolic Profile (BMP )on 02-15-2024 BUN/CRE 25.9 RATIO High 10-20 [facility] Comment on above: Performed By: #### L 100.0100, L500.2500 ####[facility] [address] [place], [address] CA,Total 8.8 mg/dL Normal 8.5-10.1 [facility] Comment on above: Performed By: #### L 100.0100, L500.2500 ####[facility] [address] [place], [address] Chloride [Moles/Vol] 111 mmol/L High 98-107 [facility] Comment on above: Performed By: #### L 100.0100, L500.2500 ####[facility] [address] [place], [address] CO2 [Moles/Vol] 23.0 mmol/L Normal 21.0-32.0 [facility] Comment on above: Performed By: #### L 100.0100, L500.2500 ####[facility] [address] [place], [address] Creatinine [Mass/Vol] 0.89 mg/dL Normal 0.55-1.02 [facility] Comment on above: Result Comment: The validity of the calculated GFR GFRAA in patients over70 years has not been determined. Clinical correlation isessential. Performed By: #### L 100.0100, L500.2500 ####[facility] [address] [place], [address] ECRCL 57.20 ml/min Normal [facility] Comment on above: Performed By: #### L 100.0100, L500.2500 ####[facility] [address] [place], [address] EST GFR - AA 81 mL/min Normal >60 [facility] Comment on above: Result Comment: Afri can Croatian GFR Calc Performed By: #### L 100.0100, L500.2500 ####[facility] [address] [place], [address] GAP 7 Normal 5-15 [facility] Comment on above: Performed By: #### L 100.0100, L500.2500 ####[facility] [address] [place], [address] GFR/1.73 sq M.predicted among non-blacks MDRD (S/P/Bld) [Vol rate/Area] 67 mL/min/{1.73_m2} Normal >60 [facility] Comment on above: Result Comment: Non- GFR Calc Performed By: #### L 100.0100, L500.2500 ####[facility] [address] [place], [address] Glucose [Mass/Vol] 181 mg/dL High 74-106 [facility] Comment on above: Result Comment: Fast ing Glucose result greater than or equal to 126 mg/dLsuggests DIABETES MELLITUS per A.D.A. criteria. Performed By: #### L 100.0100, L500.2500 ####[facility] [address] [place], [address] Potassium [Moles/Vol] 3.9 mmol/L Normal 3.5-5.1 [facility] Comment on above: Performed By: #### L 100.0100, L500.2500 ####[facility] [address] [place], [address] Sodium [Moles/Vol] 142 mmol/L Normal 136-145 [facility] Comment on above: Performed By: #### L 100.0100, L500.2500 ####[facility] [address] [place], [address] Urea nitrogen [Mass/Vol] 23 mg/dL High 7-18 [facility] Comment on above: Performed By: #### L 100.0100, L500.2500 ####[facility] [address] [place], [address] Bedside Glucoseon 02-15-2024 FINGERSTICK GLU 158 mg/dL High 74-106 [facility] Comment on above: Result Comment: GERALDO GEMENT OF PATIENT CARE PER NURSING PROTOCOL Performed By: #### L 501.080 ####[facility] [address] [place], [address] FINGERSTICK GLU 152 mg/dL High 74-106 [facility] Comment on above: Result Comment: GERALDO GEMENT OF PATIENT CARE PER NURSING PROTOCOL Performed By: #### L 501.080 ####[facility] [address] [place], [address] FINGERSTICK GLU 166 mg/dL High 74-106 [facility] Comment on above: Result Comment: GERALDO GEMENT OF PATIENT CARE PER NURSING PROTOCOL Performed By: #### L 501.080 ####[facility] [address] [place], [address] CBC W/Diff, Automatedon Absolute Lymph 2.03 X10 3/uL Normal 0.83-4.51 [facility] Comment on above: Performed By: #### L 100.0100, L500.2500 ####[facility] [address] [place], [address] Absolute Neut 11.7 X10 3/uL High 2.0-7.7 [facility] Comment on above: Performed By: #### L 100.0100, L500.2500 ####[facility] [address] [place], [address] Basophils/100 WBC (Bld) 0.1 % Normal 0-1 [facility] Comment on above: Performed By: #### L 100.0100, L500.2500 ####[facility] [address] [place], [address] Eosinophils/100 WBC (Bld) 0.5 % Normal 0-5 [facility] Comment on above: Performed By: #### L 100.0100, L500.2500 ####[facility] [address] [place], [address] Erythrocyte distribution width (RBC) [Ratio] 13.5 % Normal 11.6-14.6 [facility] Comment on above: Performed By: #### L 100.0100, L500.2500 ####[facility] [address] [place], [address] Hematocrit (Bld) [Volume fraction] 36.2 % Low 37-47 [facility] Comment on above: Performed By: #### L 100.0100, L500.2500 ####[facility] [address] [place], [address] Hemoglobin (Bld) [Mass/Vol] 11.5 g/dL Low 12.0-15.0 [facility] Comment on above: Performed By: #### L 100.0100, L500.2500 ####[facility] [address] [place], [address] IG% 0.500 Normal 0.0-0.9 [facility] Comment on above: Result Comment: IG% - Immature Granulocytes (promyelocytes, myelocytes andmetamyelocytes) > 1% indicates that a LEFT SHIFT is Present. Performed By: #### L 100.0100, L500.2500 ####[facility] [address] [place], [address] Lymphocytes/100 WBC (Bld) 13.5 % Low 19-41 [facility] Comment on above: Performed By: #### L 100.0100, L500.2500 ####[facility] [address] [place], [address] MCH (RBC) [Entitic mass] 29.0 pg Normal 27.0-32.0 [facility] Comment on above: Performed By: #### L 100.0100, L500.2500 ####[facility] [address] [place], [address] MCHC (RBC) [Mass/Vol] 31.8 g/dL Low 32-36 [facility] Comment on above: Performed By: #### L 100.0100, L500.2500 ####[facility] [address] [place], [address] MCV (RBC) [Entitic vol] 91.4 fL Normal 81-99 [facility] Comment on above: Performed By: #### L 100.0100, L500.2500 ####[facility] [address] [place], [address] Monocytes/100 WBC (Bld) 7.7 % Normal 0-10 [facility] Comment on above: Performed By: #### L 100.0100, L500.2500 ####[facility] [address] [place], [address] Neutrophils/100 WBC (Bld) 77.7 % High 47-70 [facility] Comment on above: Performed By: #### L 100.0100, L500.2500 ####[facility] [address] [place], [address] Nucleated RBC (Bld) [#/Vol] 0 10*3/uL Normal 0-5 [facility] Comment on above: Performed By: #### L 100.0100, L500.2500 ####[facility] [address] [place], [address] Platelet mean volume (Bld) [Entitic vol] 9.7 fL Normal 6.2-12.0 [facility] Comment on above: Performed By: #### L 100.0100, L500.2500 ####[facility] [address] [place], [address] Platelets (Bld) [#/Vol] 280 10*3/uL Normal 150-450 [facility] Comment on above: Performed By: #### L 100.0100, L500.2500 ####[facility] [address] [place], [address] RBC (Bld) [#/Vol] 3.96 10*6/uL Low 4.2-5.4 [facility] Comment on above: Performed By: #### L 100.0100, L500.2500 ####[facility] [address] [place], [address] RDW SD 44.8 fl High 35.1-43.9 [facility] Comment on above: Performed By: #### L 100.0100, L500.2500 ####[facility] [address] [place], [address] WBC (Bld) [#/Vol] 15.0 10*3/uL High 4.4-11.0 [facility] Comment on above: Performed By: #### L 100.0100, L500.2500 ####[facility] [address] [place], [address] Urine Cultureon 02-15-2024 URC Normal [facility] Comment on above: Performed By: #### M 100.2200 ####[facility] [address] [place], [address] ALP [Catalytic activity/Vol] Ordered By: Tamiko Quigley on 02-14-2024 Serum or plasma alkaline phosphatase measurement 96 U/L 45-117 [facility] ALT [Catalytic activity/Vol] Ordered By: Tamiko Quigley on 02-14-2024 Serum or plasma alanine aminotransferase (ALT) measurement 19 U/L 13-56 [facility] Albumin to globulin ratioOrd ered By: Tamiko Quigley on 02-14-2024 Albumin to globulin ratio 1.0 RATIO 0.9-2.4 [facility] Ammoniaon 02-14-2024 Ammonia (P) [Moles/Vol] 13.0 umol/L Normal 11-32 [facility] Comment on above: Performed By: #### L 503.5510 ####[facility] [address] [place], [address] Arterial patency Wrist arter y --pre arterial punctureOrdered By: Tamiko Quigley on 02-14-2024 Assessment of wrist artery patency prior to arterial puncture N/A [facility] Base excess Calc (BldV) [Mol es/Vol]Ordered By: Tamiko Quigley on 02-14-2024 Blood base excess determination -6 mmol/L Low -2-2 [facility] Basic Metabolic Profile (BMP )on 02-14-2024 BUN/CRE 22.5 RATIO High 10-20 [facility] Comment on above: Performed By: #### L 500.2500 ####[facility] [address] [place], [place], [address] CA,Total < 5.0 Invalid Interpretation Code 8.5-10.1 [facility] Comment on above: Result Comment: Crit ical Result(s) Called at: 01:27:17 02/14/2024 by: EVERETT. Results read back by Smiley Gfof Performed By: #### L 500.2500 ####[facility] [address] [place], [address] Chloride [Moles/Vol] 125 mmol/L High 98-107 [facility] Comment on above: Performed By: #### L 500.2500 ####[facility] [address] [place], [address] CO2 [Moles/Vol] 14.0 mmol/L Low 21.0-32.0 [facility] Comment on above: Performed By: #### L 500.2500 ####[facility] [address] [place], [address] Creatinine [Mass/Vol] 0.49 mg/dL Low 0.55-1.02 [facility] Comment on above: Result Comment: The validity of the calculated GFR GFRAA in patients over70 years has not been determined. Clinical correlation isessential. Performed By: #### L 500.2500 ####[facility] [address] [place], [address] ECRCL 66.40 ml/min Normal [facility] Comment on above: Performed By: #### L 500.2500 ####[facility] [address] [place], [address] EST GFR - AA 161 mL/min Normal >60 [facility] Comment on above: Result Comment: Afri can Croatian GFR Calc Performed By: #### L 500.2500 ####[facility] [address] [place], [address] GAP 9 Normal 5-15 [facility] Comment on above: Performed By: #### L 500.2500 ####[facility] [address] [place], [address] GFR/1.73 sq M.predicted among non-blacks MDRD (S/P/Bld) [Vol rate/Area] 133 mL/min/{1.73_m2} Normal >60 [facility] Comment on above: Result Comment: Non- GFR Calc Performed By: #### L 500.2500 ####[facility] [address] [place], [address] Glucose [Mass/Vol] 192 mg/dL High 74-106 [facility] Comment on above: Result Comment: Fast ing Glucose result greater than or equal to 126 mg/dLsuggests DIABETES MELLITUS per A.D.A. criteria. Performed By: #### L 500.2500 ####[facility] [address] [place], [address] Potassium [Moles/Vol] 2.3 mmol/L Invalid Interpretation Code 3.5-5.1 [facility] Comment on above: Result Comment: Crit ical Result(s) Called at: 01:26:50 02/14/2024 by: EVERETT. Results read back by Smiley Goff Performed By: #### L 500.2500 ####[facility] [address] [place], [address] Sodium [Moles/Vol] 148 mmol/L High 136-145 [facility] Comment on above: Performed By: #### L 500.2500 ####[facility] [address] [place], [address] Urea nitrogen [Mass/Vol] 11 mg/dL Normal 7-18 [facility] Comment on above: Performed By: #### L 500.2500 ####[facility] [address] [place], [address] Bedside Glucoseon 02-14-2024 FINGERSTICK GLU 180 mg/dL High 74-106 [facility] Comment on above: Result Comment: GERALDO GEMENT OF PATIENT CARE PER NURSING PROTOCOL Performed By: #### L 501.080 ####[facility] [address] [place], [address] FINGERSTICK GLU 171 mg/dL High 74-106 [facility] Comment on above: Result Comment: GERALDO GEMENT OF PATIENT CARE PER NURSING PROTOCOL Performed By: #### L 501.080 ####[facility] [address] [place], [address] FINGERSTICK GLU 189 mg/dL High 74-106 [facility] Comment on above: Result Comment: GERALDO GEMENT OF PATIENT CARE PER NURSING PROTOCOL Performed By: #### L 501.080 ####[facility] [address] [place], [address] FINGERSTICK GLU 205 mg/dL High 74-106 [facility] Comment on above: Result Comment: GERALDO GEMENT OF PATIENT CARE PER NURSING PROTOCOL Performed By: #### L 501.080 ####[facility] [address] [place], [address] FINGERSTICK GLU 271 mg/dL High 74-106 [facility] Comment on above: Result Comment: GERALDO GEMENT OF PATIENT CARE PER NURSING PROTOCOL Performed By: #### L 501.080 ####[facility] [address] [place], [address] Bilirubin, totalOrdered By: Tamiko Quigley on 02-14-2024 Bilirubin, total 1.20 mg/dL High 0.20-1.00 [facility] TEST N/A Normal [facility] Comment on above: Performed By: #### L 9000.0800 ####[facility] [address] [place], [address] Base excess Calc (Bld) [Moles/Vol] -6 mmol/L Low -2 to +2 [facility] Comment on above: Performed By: #### L 9000.0800 ####[facility] [address] [place], [address] Blood Gas Type ART Normal [facility] Comment on above: Performed By: #### L 9000.0800 ####[facility] [address] [place], [address] CO2 [Moles/Vol] 18 mmol/L Normal [facility] Comment on above: Performed By: #### L 9000.0800 ####[facility] [address] [place], [address] FI02 21.0 Normal [facility] Comment on above: Performed By: #### L 9000.0800 ####[facility] [address] [place], [address] HCO3 (Bld) [Moles/Vol] 17.0 mmol/L Low 22-26 [facility] Comment on above: Performed By: #### L 8999.08 ####[facility] [address] [place], [address] Mode Not entered Normal [facility] Comment on above: Performed By: #### L 8999.08 ####[facility] [address] [place], [address] O2 Delivery Dev Room Air Normal [facility] Comment on above: Performed By: #### L 8999.08 ####[facility] [address] [place], [address] pCO2 22.4 mmHg Low 35-45 [facility] Comment on above: Performed By: #### L 8999.08 ####[facility] [address] [place], [address] pH (Bld) 7.49 [pH] High 7.35-7.45 [facility] Comment on above: Performed By: #### L 8999.08 ####[facility] [address] [place], [address] PO2 76 mmHG Normal 75-100 [facility] Comment on above: Performed By: #### L 8999.08 ####[facility] [address] [place], [address] SITE L Radial Normal [facility] Comment on above: Performed By: #### L 8999.08 ####[facility] [address] [place], [address] SO2 96 Normal 95-99 [facility] Comment on above: Performed By: #### L 8999.08 ####[facility] [address] [place], [address] Blood bicarbonate measuremen tOrdered By: Tamiko Quigley on 02-14-2024 Blood bicarbonate measurement 17.0 mmol/L Low 22-26 [facility] CBC W/Diff, Automatedon Absolute Lymph 1.44 X10 3/uL Normal 0.83-4.51 [facility] Comment on above: Performed By: #### L 100.0100 ####[facility] [address] [place], [address] Absolute Neut 18.6 X10 3/uL High 2.0-7.7 [facility] Comment on above: Performed By: #### L 100.0100 ####[facility] [address] [place], [address] Basophils/100 WBC (Bld) 0.1 % Normal 0-1 [facility] Comment on above: Performed By: #### L 100.0100 ####[facility] [address] [place], [address] Eosinophils/100 WBC (Bld) 0.0 % Normal 0-5 [facility] Comment on above: Performed By: #### L 100.0100 ####[facility] [address] [place], [address] Erythrocyte distribution width (RBC) [Ratio] 13.1 % Normal 11.6-14.6 [facility] Comment on above: Performed By: #### L 100.0100 ####[facility] [address] [place], [address] Hematocrit (Bld) [Volume fraction] 42.7 % Normal 37-47 [facility] Comment on above: Performed By: #### L 100.0100 ####[facility] [address] [place], [address] Hemoglobin (Bld) [Mass/Vol] 14.0 g/dL Normal 12.0-15.0 [facility] Comment on above: Performed By: #### L 100.0100 ####[facility] [address] [place], [address] IG% 0.700 Normal 0.0-0.9 [facility] Comment on above: Result Comment: IG% - Immature Granulocytes (promyelocytes, myelocytes andmetamyelocytes) > 1% indicates that a LEFT SHIFT is Present. Performed By: #### L 100.0100 ####[facility] [address] [place], [address] Lymphocytes/100 WBC (Bld) 6.7 % Low 19-41 [facility] Comment on above: Performed By: #### L 100.0100 ####[facility] [address] [place], [address] MCH (RBC) [Entitic mass] 29.5 pg Normal 27.0-32.0 [facility] Comment on above: Performed By: #### L 100.0100 ####[facility] [address] [place], [address] MCHC (RBC) [Mass/Vol] 32.8 g/dL Normal 32-36 [facility] Comment on above: Performed By: #### L 100.0100 ####[facility] [address] [place], [address] MCV (RBC) [Entitic vol] 89.9 fL Normal 81-99 [facility] Comment on above: Performed By: #### L 100.0100 ####[facility] [address] [place], [address] Monocytes/100 WBC (Bld) 6.5 % Normal 0-10 [facility] Comment on above: Performed By: #### L 100.0100 ####[facility] [address] [place], [address] Neutrophils/100 WBC (Bld) 86.0 % High 47-70 [facility] Comment on above: Performed By: #### L 100.0100 ####[facility] [address] [place], [address] Nucleated RBC (Bld) [#/Vol] 0 10*3/uL Normal 0-5 [facility] Comment on above: Performed By: #### L 100.0100 ####[facility] [address] [place], [address] Platelet mean volume (Bld) [Entitic vol] 9.3 fL Normal 6.2-12.0 [facility] Comment on above: Performed By: #### L 100.0100 ####[facility] [address] [place], [address] Platelets (Bld) [#/Vol] 335 10*3/uL Normal 150-450 [facility] Comment on above: Performed By: #### L 100.0100 ####[facility] [address] [place], [address] RBC (Bld) [#/Vol] 4.75 10*6/uL Normal 4.2-5.4 [facility] Comment on above: Performed By: #### L 100.0100 ####[facility] [address] [place], [address] RDW SD 42.8 fl Normal 35.1-43.9 [facility] Comment on above: Performed By: #### L 100.0100 ####[facility] [address] [place], [address] WBC (Bld) [#/Vol] 21.6 10*3/uL High 4.4-11.0 [facility] Comment on above: Performed By: #### L 100.0100 ####[facility] [address] [place], [address] COVID 19 AG RAPID (RN HANANE Gonzales)on 02-14-2024 SARS-CoV-2 (COVID-19) RNA MARILEE+probe Ql (Unsp spec) Normal [facility] Comment on above: Performed By: #### M 100.505 ####[facility] [address] [place], [address] Comprehensive Metabolic Prof ilon 02-14-2024 Albumin [Mass/Vol] 3.8 g/dL Normal 3.2-5.0 [facility] [facility] Comment on above: Performed By: #### L 500.4050, L501.9520, L501.2300, L501.5200 ####[facility] [address] [place], [address] Albumin/Globulin [Mass ratio] 1.0 {ratio} Normal 0.9-2.4 [facility] Comment on above: Performed By: #### L 500.4050, L501.9520, L501.2300, L501.5200 ####[facility] [address] [place], [address] ALK P 96 U/L Normal 45-117 [facility] Comment on above: Performed By: #### L 500.4050, L501.9520, L501.2300, L501.5200 ####[facility] [address] [place], [address] ALT [Catalytic activity/Vol] 19 U/L Normal 13-56 [facility] Comment on above: Performed By: #### L 500.4050, L501.9520, L501.2300, L501.5200 ####[facility] [address] [place], [address] AST [Catalytic activity/Vol] 25 U/L Normal 15-37 [facility] Comment on above: Performed By: #### L 500.4050, L501.9520, L501.2300, L501.5200 ####[facility] [address] [place], [address] Bilirubin [Mass/Vol] 1.20 mg/dL High 0.20-1.00 [facility] Comment on above: Result Comment: For patients on eltrombopag therapy, use of Dimension [place] TBIL is not recommended. Performed By: #### L 500.4050, L501.9520, L501.2300, L501.5200 ####[facility] [address] [place], [address] BUN/CRE 12.3 RATIO Normal 10-20 [facility] Comment on above: Performed By: #### L 500.4050, L501.9520, L501.2300, L501.5200 ####[facility] [address] [place], [address] CA,Total 9.1 mg/dL Normal 8.5-10.1 [facility] Comment on above: Performed By: #### L 500.4050, L501.9520, L501.2300, L501.5200 ####[facility] [address] [place], [address] Chloride [Moles/Vol] 104 mmol/L Normal 98-107 [facility] Comment on above: Performed By: #### L 500.4050, L501.9520, L501.2300, L501.5200 ####[facility] [address] [place], [address] CO2 [Moles/Vol] 18.0 mmol/L Low 21.0-32.0 [facility] Comment on above: Performed By: #### L 500.4050, L501.9520, L501.2300, L501.5200 ####[facility] [address] [place], [address] Creatinine [Mass/Vol] 1.22 mg/dL High 0.55-1.02 [facility] Comment on above: Result Comment: The validity of the calculated GFR GFRAA in patients over70 years has not been determined. Clinical correlation isessential. Performed By: #### L 500.4050, L501.9520, L501.2300, L501.5200 ####[facility] [address] [place], [address] ECRCL 41.78 ml/min Normal [facility] Comment on above: Performed By: #### L 500.4050, L501.9520, L501.2300, L501.5200 ####[facility] [address] [place], [address] EST GFR - AA 56 mL/min Low >60 [facility] Comment on above: Result Comment: Afri can Croatian GFR Calc Performed By: #### L 500.4050, L501.9520, L501.2300, L501.5200 ####[facility] [address] [place], [address] GAP 14 Normal 5-15 [facility] Comment on above: Performed By: #### L 500.4050, L501.9520, L501.2300, L501.5200 ####[facility] [address] [place], [address] GFR/1.73 sq M.predicted among non-blacks MDRD (S/P/Bld) [Vol rate/Area] 46 mL/min/{1.73_m2} Low >60 [facility] Comment on above: Result Comment: Non- GFR Calc Performed By: #### L 500.4050, L501.9520, L501.2300, L501.5200 ####[facility] [address] [place], [address] Globulin (S) [Mass/Vol] 3.8 g/dL Normal 2.2-4.2 [facility] Comment on above: Performed By: #### L 500.4050, L501.9520, L501.2300, L501.5200 ####[facility] [address] [place], [address] Glucose [Mass/Vol] 308 mg/dL High 74-106 [facility] Comment on above: Result Comment: Gluc ose result greater than or equal to 200 mg/dLsuggests DIABETES MELLITUS per A.D.A. criteria. Performed By: #### L 500.4050, L501.9520, L501.2300, L501.5200 ####[facility] [address] [place], [address] Potassium [Moles/Vol] 3.7 mmol/L Normal 3.5-5.1 [facility] Comment on above: Performed By: #### L 500.4050, L501.9520, L501.2300, L501.5200 ####[facility] [address] [place], [address] Sodium [Moles/Vol] 135 mmol/L Low 136-145 [facility] Comment on above: Performed By: #### L 500.4050, L501.9520, L501.2300, L501.5200 ####[facility] [address] [place], [address] T PROT 7.6 g/dL Normal 6.4-8.2 [facility] Comment on above: Performed By: #### L 500.4050, L501.9520, L501.2300, L501.5200 ####[facility] [address] [place], [address] Urea nitrogen [Mass/Vol] 15 mg/dL Normal 7-18 [facility] Comment on above: Performed By: #### L 500.4050, L501.9520, L501.2300, L501.5200 ####[facility] [address] [place], [place], [address] Consultation - Intensiviston 02-14-2024 Consultation - Inspectors And Regulatory Officers Normal [facility] Determination of fraction of inspired oxygenOrdered By: Tamiko Quigley on 02-14-2024 Determination of fraction of inspired oxygen 21.0 [facility] Lactic Acidon 02-14-2024 Lactate [Moles/Vol] 3.8 mmol/L Invalid Interpretation Code 0.4-1.9 [facility] Comment on above: Result Comment: Crit ical Result(s) Called at: 01:52:58 02/14/2024 by: EVERETT. Results read back by Demar Performed By: #### L 503.6005 ####[facility] [address] [place], [place], [id number] Lactic acid measurementOrder ed By: Nico Arce on 02-14-2024 Lactic acid measurement 3.8 mmol/L High 0.4-2.0 [facility] M R Staph Aureus DNA by PCRo n 02-14-2024 MRSA DNA ASSAY Negative Normal Negative [facility] Comment on above: Performed By: #### L 8200.1000 ####[facility] [address] [place], [place], [address] MRSA detection PCROrdered By : Tamiko Quigley on 02-14-2024 MRSA detection PCR Negative Negative [facility] Magnesiumon 02-14-2024 Magnesium [Mass/Vol] 1.5 mg/dL Low 1.6-2.6 [facility] Comment on above: Performed By: #### L 500.4050, L501.9520, L501.2300, L501.5200 ####[facility] [address] [place], [place], [address] Magnesium measurementOrdered By: Tamiko Quigley on 02-14-2024 Magnesium measurement 1.5 mg/dL Low 1.6-2.6 [facility] No Panel InformationOrdered By: Tamiko Quigley on 02-14-2024 25 U/L 15-37 [facility] ART [facility] L Radial [facility] Not entered [facility] Room Air [facility] Oxygen saturation measuremen tOrdered By: Tamiko Quigley on 02-14-2024 Oxygen saturation measurement 96 % 95-99 [facility] Partial pressure of carbon d ioxide measurementOrdered By: Tamiko Quigley on 02-14-2024 Partial pressure of carbon dioxide measurement 22.4 mmHg Low 35-45 [facility] Partial pressure of oxygen m easurementOrdered By: Tamiko Quigley on 02-14-2024 Partial pressure of oxygen measurement 76 mmHG 75-100 [facility] Phosphoruson 02-14-2024 Phosphate [Mass/Vol] 2.2 mg/dL Low 2.5-4.9 [facility] Comment on above: Performed By: #### L 500.4050, L501.9520, L501.2300, L501.5200 ####[facility] [address] [place], [address] Phosphorus measurementOrdere d By: Tamiko Quigley on 02-14-2024 Phosphorus measurement 2.2 mg/dL Low 2.5-4.9 [facility] Procalcitoninon 02-14-2024 Procalcitonin 0.33 ng/mL High 0.00-0.09 [facility] Comment on above: Result Comment: A [...] are obtained. Performed By: #### L 509.7000 ####[facility] [address] [place], [address] Procalcitonin [Mass/Vol]Orde red By: Tamiko Quigley on 02-14-2024 Serum procalcitonin measurement 0.33 ng/mL High 0.00-0.09 [facility] RESPIRATORY PANEL MOLECULARo n 02-14-2024 RP PANEL Normal [facility] Comment on above: Performed By: #### M 100.638 ####[facility] [address] [place], [address] Serum or plasma albumin timbo urement (mass/volume)Ordered By: Tamiko Quigley on 02-14-2024 Serum or plasma albumin measurement (mass/volume) 3.8 g/dL 2.2-4.2 [facility] TSH QnOrdered By: Tamiko Hendrickson on 02-14-2024 Serum or plasma thyroid stimulating hormone (TSH) measurement (units/volume) 2.180 uIU/mL 0.358-3.740 [facility] Thyroid Stim Hormone (TSH)on 02-14-2024 TSH 2.180 uIU/mL Normal 0.358-3.740 [facility] Comment on above: Performed By: #### L 500.4050, L501.9520, L501.2300, L501.5200 ####[facility] [address] [place], [place], [id number] Total carbon dioxide measure mentOrdered By: Tamiko Quigley on 02-14-2024 Total carbon dioxide measurement 18 mmol/L [facility] Total proteinOrdered By: Paola Quigley on 02-14-2024 Total protein 7.6 g/dL 6.4-8.2 [facility] Venous blood ammonia measure mentOrdered By: Tamiko Quigley on 02-14-2024 Venous blood ammonia measurement 13.0 umol/L 11-32 [facility] pH (Unsp spec)Ordered By: Gerry Quigley on 01-02-2025 Measurement, pH 7.49 High 7.35-7.45 [facility] 12 Lead EKGon 02-13-2024 12 Lead EKG Normal [facility] Abdomen/Pelvis without Conto n 02-13-2024 Abdomen/Pelvis without Cont Normal [facility] Blood cultureOrdered By: Talia Arce on 02-13-2024 Blood culture No growth in 5 days. [facility] Blood culture No growth in 5 days. [facility] Brain/Head without Contrasto n 02-13-2024 Brain/Head without Contrast Normal [facility] CBC W/Diff, Automatedon Absolute Lymph 1.33 X10 3/uL Normal 0.83-4.51 [facility] Comment on above: Performed By: #### M 200.1000, L500.4050, L100.0100, L300.4310, L300.3900, L503.6005, L501.4020 ####[facility] [address] [place], [address] Absolute Neut 18.6 X10 3/uL High 2.0-7.7 [facility] Comment on above: Performed By: #### M 200.1000, L500.4050, L100.0100, L300.4310, L300.3900, L503.6005, L501.4020 ####[facility] [address] [place], [address] Basophils/100 WBC (Bld) 0.3 % Normal 0-1 [facility] Comment on above: Performed By: #### M 200.1000, L500.4050, L100.0100, L300.4310, L300.3900, L503.6005, L501.4020 ####[facility] [address] [place], [address] Eosinophils/100 WBC (Bld) 0.2 % Normal 0-5 [facility] Comment on above: Performed By: #### M 200.1000, L500.4050, L100.0100, L300.4310, L300.3900, L503.6005, L501.4020 ####[facility] [address] [place], [address] Erythrocyte distribution width (RBC) [Ratio] 12.7 % Normal 11.6-14.6 [facility] Comment on above: Performed By: #### M 200.1000, L500.4050, L100.0100, L300.4310, L300.3900, L503.6005, L501.4020 ####[facility] [address] [place], [address] Hematocrit (Bld) [Volume fraction] 43.8 % Normal 37-47 [facility] Comment on above: Performed By: #### M 200.1000, L500.4050, L100.0100, L300.4310, L300.3900, L503.6005, L501.4020 ####[facility] [address] [place], [address] Hemoglobin (Bld) [Mass/Vol] 13.7 g/dL Normal 12.0-15.0 [facility] Comment on above: Performed By: #### M 200.1000, L500.4050, L100.0100, L300.4310, L300.3900, L503.6005, L501.4020 ####[facility] [address] [place], [address] IG% 0.900 Normal 0.0-0.9 [facility] Comment on above: Result Comment: IG% - Immature Granulocytes (promyelocytes, myelocytes andmetamyelocytes) > 1% indicates that a LEFT SHIFT is Present. Performed By: #### M 200.1000, L500.4050, L100.0100, L300.4310, L300.3900, L503.6005, L501.4020 ####[facility] [address] [place], [address] Lymphocytes/100 WBC (Bld) 6.3 % Low 19-41 [facility] Comment on above: Performed By: #### M 200.1000, L500.4050, L100.0100, L300.4310, L300.3900, L503.6005, L501.4020 ####[facility] [address] [place], [address] MCH (RBC) [Entitic mass] 29.6 pg Normal 27.0-32.0 [facility] Comment on above: Performed By: #### M 200.1000, L500.4050, L100.0100, L300.4310, L300.3900, L503.6005, L501.4020 ####[facility] [address] [place], [address] MCHC (RBC) [Mass/Vol] 31.3 g/dL Low 32-36 [facility] Comment on above: Performed By: #### M 200.1000, L500.4050, L100.0100, L300.4310, L300.3900, L503.6005, L501.4020 ####[facility] [address] [place], [address] MCV (RBC) [Entitic vol] 94.6 fL Normal 81-99 [facility] Comment on above: Performed By: #### M 200.1000, L500.4050, L100.0100, L300.4310, L300.3900, L503.6005, L501.4020 ####[facility] [address] [place], [address] Monocytes/100 WBC (Bld) 3.6 % Normal 0-10 [facility] Comment on above: Performed By: #### M 200.1000, L500.4050, L100.0100, L300.4310, L300.3900, L503.6005, L501.4020 ####[facility] [address] [place], [address] Neutrophils/100 WBC (Bld) 88.7 % High 47-70 [facility] Comment on above: Performed By: #### M 200.1000, L500.4050, L100.0100, L300.4310, L300.3900, L503.6005, L501.4020 ####[facility] [address] [place], [address] Nucleated RBC (Bld) [#/Vol] 0 10*3/uL Normal 0-5 [facility] Comment on above: Performed By: #### M 200.1000, L500.4050, L100.0100, L300.4310, L300.3900, L503.6005, L501.4020 ####[facility] [address] [place], [address] Platelet mean volume (Bld) [Entitic vol] 9.5 fL Normal 6.2-12.0 [facility] Comment on above: Performed By: #### M 200.1000, L500.4050, L100.0100, L300.4310, L300.3900, L503.6005, L501.4020 ####[facility] [address] [place], [address] Platelets (Bld) [#/Vol] 345 10*3/uL Normal 150-450 [facility] Comment on above: Performed By: #### M 200.1000, L500.4050, L100.0100, L300.4310, L300.3900, L503.6005, L501.4020 ####[facility] [address] [place], [address] RBC (Bld) [#/Vol] 4.63 10*6/uL Normal 4.2-5.4 [facility] Comment on above: Performed By: #### M 200.1000, L500.4050, L100.0100, L300.4310, L300.3900, L503.6005, L501.4020 ####[facility] [address] [place], [address] RDW SD 43.7 fl Normal 35.1-43.9 [facility] Comment on above: Performed By: #### M 200.1000, L500.4050, L100.0100, L300.4310, L300.3900, L503.6005, L501.4020 ####[facility] [address] [place], [address] WBC (Bld) [#/Vol] 21.0 10*3/uL High 4.4-11.0 [facility] Comment on above: Performed By: #### M 200.1000, L500.4050, L100.0100, L300.4310, L300.3900, L503.6005, L501.4020 ####[facility] [address] [place], [address] Chest 1 View (Portable)on Chest 1 View (Portable) Normal [facility] Clarity (U)Ordered By: Bhargavi Arce on 02-13-2024 Urine clarity Clear Clear [facility] Color (U)Ordered By: Nico Arce on 02-13-2024 Urine color determination Yellow Yellow [facility] Comprehensive Metabolic Prof ilon 02-13-2024 Albumin [Mass/Vol] 3.9 g/dL Normal 3.2-5.0 [facility] Comment on above: Order Comment: 'TROP ' Serial specimen #1, #2 or #3: 1 Performed By: #### M 200.1000, L500.4050, L100.0100, L300.4310, L300.3900, L503.6005, L501.4020 ####[facility] [address] [place], [address] Albumin/Globulin [Mass ratio] 1.0 {ratio} Normal 0.9-2.4 [facility] Comment on above: Order Comment: 'TROP ' Serial specimen #1, #2 or #3: 1 Performed By: #### M 200.1000, L500.4050, L100.0100, L300.4310, L300.3900, L503.6005, L501.4020 ####[facility] [address] [place], [address] ALK P 104 U/L Normal 45-117 [facility] Comment on above: Order Comment: 'TROP ' Serial specimen #1, #2 or #3: 1 Performed By: #### M 200.1000, L500.4050, L100.0100, L300.4310, L300.3900, L503.6005, L501.4020 ####[facility] [address] [place], [address] ALT [Catalytic activity/Vol] 17 U/L Normal 13-56 [facility] Comment on above: Order Comment: 'TROP ' Serial specimen #1, #2 or #3: 1 Performed By: #### M 200.1000, L500.4050, L100.0100, L300.4310, L300.3900, L503.6005, L501.4020 ####[facility] [address] [place], [address] AST [Catalytic activity/Vol] 18 U/L Normal 15-37 [facility] Comment on above: Order Comment: 'TROP ' Serial specimen #1, #2 or #3: 1 Performed By: #### M 200.1000, L500.4050, L100.0100, L300.4310, L300.3900, L503.6005, L501.4020 ####[facility] [address] [place], [address] Bilirubin [Mass/Vol] 1.00 mg/dL Normal 0.20-1.00 [facility] Comment on above: Order Comment: 'TROP ' Serial specimen #1, #2 or #3: 1 Result Comment: For patients on eltrombopag therapy, use of Dimension [place] TBIL is not recommended. Performed By: #### M 200.1000, L500.4050, L100.0100, L300.4310, L300.3900, L503.6005, L501.4020 ####[facility] [address] [place], [address] BUN/CRE 12.4 RATIO Normal 10-20 [facility] Comment on above: Order Comment: 'TROP ' Serial specimen #1, #2 or #3: 1 Performed By: #### M 200.1000, L500.4050, L100.0100, L300.4310, L300.3900, L503.6005, L501.4020 ####[facility] [address] [place], [address] CA,Total 9.8 mg/dL Normal 8.5-10.1 [facility] Comment on above: Order Comment: 'TROP ' Serial specimen #1, #2 or #3: 1 Performed By: #### M 200.1000, L500.4050, L100.0100, L300.4310, L300.3900, L503.6005, L501.4020 ####[facility] [address] [place], [address] Chloride [Moles/Vol] 101 mmol/L Normal 98-107 [facility] Comment on above: Order Comment: 'TROP ' Serial specimen #1, #2 or #3: 1 Performed By: #### M 200.1000, L500.4050, L100.0100, L300.4310, L300.3900, L503.6005, L501.4020 ####[facility] [address] [place], [address] CO2 [Moles/Vol] 19.0 mmol/L Low 21.0-32.0 [facility] Comment on above: Order Comment: 'TROP ' Serial specimen #1, #2 or #3: 1 Performed By: #### M 200.1000, L500.4050, L100.0100, L300.4310, L300.3900, L503.6005, L501.4020 ####[facility] [address] [place], [address] Creatinine [Mass/Vol] 1.29 mg/dL High 0.55-1.02 [facility] Comment on above: Order Comment: 'TROP ' Serial specimen #1, #2 or #3: 1 Result Comment: The validity of the calculated GFR GFRAA in patients over70 years has not been determined. Clinical correlation isessential. Performed By: #### M 200.1000, L500.4050, L100.0100, L300.4310, L300.3900, L503.6005, L501.4020 ####[facility] [address] [place], [address] ECRCL 41.18 ml/min Normal [facility] Comment on above: Order Comment: 'TROP ' Serial specimen #1, #2 or #3: 1 Performed By: #### M 200.1000, L500.4050, L100.0100, L300.4310, L300.3900, L503.6005, L501.4020 ####[facility] [address] [place], [address] EST GFR - AA 53 mL/min Low >60 [facility] Comment on above: Order Comment: 'TROP ' Serial specimen #1, #2 or #3: 1 Result Comment: Afri can Croatian GFR Calc Performed By: #### M 200.1000, L500.4050, L100.0100, L300.4310, L300.3900, L503.6005, L501.4020 ####[facility] [address] [place], [address] GAP 17 High 5-15 [facility] Comment on above: Order Comment: 'TROP ' Serial specimen #1, #2 or #3: 1 Performed By: #### M 200.1000, L500.4050, L100.0100, L300.4310, L300.3900, L503.6005, L501.4020 ####[facility] [address] [place], [address] GFR/1.73 sq M.predicted among non-blacks MDRD (S/P/Bld) [Vol rate/Area] 43 mL/min/{1.73_m2} Low >60 [facility] Comment on above: Order Comment: 'TROP ' Serial specimen #1, #2 or #3: 1 Result Comment: Non- GFR Calc Performed By: #### M 200.1000, L500.4050, L100.0100, L300.4310, L300.3900, L503.6005, L501.4020 ####[facility] [address] [place], [address] Globulin (S) [Mass/Vol] 4.0 g/dL Normal 2.2-4.2 [facility] Comment on above: Order Comment: 'TROP ' Serial specimen #1, #2 or #3: 1 Performed By: #### M 200.1000, L500.4050, L100.0100, L300.4310, L300.3900, L503.6005, L501.4020 ####[facility] [address] [place], [address] Glucose [Mass/Vol] 374 mg/dL High 74-106 [facility] Comment on above: Order Comment: 'TROP ' Serial specimen #1, #2 or #3: 1 Result Comment: Gluc ose result greater than or equal to 200 mg/dLsuggests DIABETES MELLITUS per A.D.A. criteria. Performed By: #### M 200.1000, L500.4050, L100.0100, L300.4310, L300.3900, L503.6005, L501.4020 ####[facility] [address] [place], [address] Potassium [Moles/Vol] 4.1 mmol/L Normal 3.5-5.1 [facility] Comment on above: Order Comment: 'TROP ' Serial specimen #1, #2 or #3: 1 Performed By: #### M 200.1000, L500.4050, L100.0100, L300.4310, L300.3900, L503.6005, L501.4020 ####[facility] [address] [place], [address] Sodium [Moles/Vol] 137 mmol/L Normal 136-145 [facility] Comment on above: Order Comment: 'TROP ' Serial specimen #1, #2 or #3: 1 Performed By: #### M 200.1000, L500.4050, L100.0100, L300.4310, L300.3900, L503.6005, L501.4020 ####[facility] [address] [place], [address] T PROT 7.9 g/dL Normal 6.4-8.2 [facility] Comment on above: Order Comment: 'TROP ' Serial specimen #1, #2 or #3: 1 Performed By: #### M 200.1000, L500.4050, L100.0100, L300.4310, L300.3900, L503.6005, L501.4020 ####[facility] [address] [place], [address] Urea nitrogen [Mass/Vol] 16 mg/dL Normal 7-18 [facility] Comment on above: Order Comment: 'TROP ' Serial specimen #1, #2 or #3: 1 Performed By: #### M 200.1000, L500.4050, L100.0100, L300.4310, L300.3900, L503.6005, L501.4020 ####[facility] [address] [place], [place], [id number] Emergency Department Summary on 02-13-2024 Emergency Department Summary Normal [facility] Glucose Ql (U)Ordered By: Uche Arce on 02-13-2024 Urine glucose detection 1000 mg/dl High Normal W [facility] H AND P Exam - [facility] 02-13-2024 H&P Exam - Hospitalist Normal [facility] International normalized rat io (INR) calculationOrdered By: Nico Arce on 02-13-2024 International normalized ratio (INR) calculation 1.1 [facility] Ketones Test strip Ql (U)Ord ered By: Nico Arce on 02-13-2024 Urine ketones detection by test strip 15 mg/dl High Negative [facility] L501.4020on 02-13-2024 TROPONIN-I HS 17 pg/mL Normal 3.0-54.0 [facility] Comment on above: Order Comment: 'TROP ' Serial specimen #1, #2 or #3: 1 Result Comment: La aguilar Note: New Test Units and Gender Specific Reference Ranges. For more information see Policy Stat Procedure [place] [facility] Sensitivity Troponin (TNIH) and attachments. Performed By: #### M 200.1000, L500.4050, L100.0100, L300.4310, L300.3900, L503.6005, L501.4020 ####[facility] [address] [place], [place], [id number] Lactic Acidon 02-13-2024 Lactate [Moles/Vol] 8.7 mmol/L Invalid Interpretation Code 0.4-1.9 [facility] Comment on above: Order Comment: Y Result Comment: Crit ical Result(s) Called at: 17:38:31 02/13/2024 by: EVERETT. Results read back by Duong Performed By: #### M 200.1000, L500.4050, L100.0100, L300.4310, L300.3900, L503.6005, L501.4020 ####[facility] [address] [place], [place], [id number] Partial Thromboplast Timeon 02-13-2024 aPTT Coag (Bld) [Time] 22.4 s Low 24.1-36.2 [facility] Comment on above: Performed By: #### M 200.1000, L500.4050, L100.0100, L300.4310, L300.3900, L503.6005, L501.4020 ####[facility] [address] [place], [address] Protein Test strip Ql (U)Ord ered By: Nico Arce on 02-13-2024 Urine protein assay by test strip, semi-quantitative 500 mg/dl High Negative [facility] Prothrombin Time w/INRon INR Coag (PPP) [Relative time] 1.1 {INR} Normal [facility] Comment on above: Performed By: #### M 200.1000, L500.4050, L100.0100, L300.4310, L300.3900, L503.6005, L501.4020 ####[facility] [address] [place], [address] PT Coag (PPP) [Time] 14.0 s Normal 11.7-14.9 [facility] Comment on above: Performed By: #### M 200.1000, L500.4050, L100.0100, L300.4310, L300.3900, L503.6005, L501.4020 ####[facility] [address] [place], [address] Prothrombin timeOrdered By: Nico Arce on 02-13-2024 Prothrombin time 14.0 SECONDS 11.7-14.9 [facility] Specific gravity (U) [Rel de nsity]Ordered By: Nico Arce on 02-13-2024 Urine specific gravity measurement 1.010 1.002-1.030 [facility] Spine Cervical without Contr ason 02-13-2024 Spine Cervical without Contras Normal [facility] Squamous epithelial cells de tection in urine sediment by light microscopyOrdered By: Nico Arce on 02-13-2024 Squamous epithelial cells detection in urine sediment by light microscopy 0 SEEN /hpf [facility] Troponin IOrdered By: Julisa Arce on 02-13-2024 Troponin I 17 pg/mL 3.0-54.0 [facility] Urinalysis, Completeon 02-12 RBC 0-5 SEEN Normal 0-5 [facility] Comment on above: Order Comment: DAYAN CTOR TO SPECIFY Performed By: #### L 400.0001 ####[facility] [address] [place], [address] WBC 0-5 SEEN Normal 0-5 [facility] Comment on above: Order Comment: DAYAN CTOR TO SPECIFY Performed By: #### L 400.0001 ####[facility] [address] [place], [address] BACTERIA 0 SEEN Normal None Seen [facility] Comment on above: Order Comment: DAYAN CTOR TO SPECIFY Performed By: #### L 400.0001 ####[facility] [address] [place], [address] EPI,SQUAMOUS 0 SEEN Normal 5-10 [facility] Comment on above: Order Comment: DAYAN CTOR TO SPECIFY Performed By: #### L 400.0001 ####[facility] [address] [place], [address] Mucus Ql (Urine sed) 0 SEEN Normal [facility] Comment on above: Order Comment: DAYAN CTOR TO SPECIFY Performed By: #### L 400.0001 ####[facility] [address] [place], [address] Urine blood detectionOrdered By: Nico Arce on 02-13-2024 Urine blood detection 25 /ul High Negative [facility] Urine cultureOrdered By: Talia Arce on 02-13-2024 Urine culture Enterococcus faecalis Abnormal [facility] Urine total bilirubin detect ion by test stripOrdered By: Nico Arce on 02-13-2024 Urine total bilirubin detection by test strip Negative Negative [facility] Urobilinogen Ql (U)Ordered B y: Nico Claude on 02-13-2024 Urine urobilinogen measurement Normal mg/dl Normal [facility] White blood cell countOrdere d By: Nico Claude on 02-13-2024 White blood cell count 0-5 SEEN /hpf 0-5 [facility] aPTT Coag (PPP) [Time]Ordere d By: Nico Arce on 02-13-2024 Activated partial thromboplastin time (aPTT) in platelet poor plasma by coagulation a 22.4 Seconds Low 24.1-36.2 [facility] pH (U)Ordered By: Nico bear on 02-13-2024 Urine pH 7.0 5.0 - 8.0 [facility] Gastroenterology Visit Repor ton 01-25-2024 Gastroenterology Visit Report Normal [facility] Comprehensive Metabolic Prof ilon 01-10-2024 ALB Normal 3.2-5.0 [facility] Comment on above: Result Comment: Canc elled via OM: Order cancelled - Patient discharged Performed By: #### L 500.4050 ####[facility] [address] [place], [address] ALK P Normal 45-117 [facility] Comment on above: Result Comment: Canc elled via OM: Order cancelled - Patient discharged Performed By: #### L 500.4050 ####[facility] [address] [place], [address] ALT Normal 13-56 [facility] Comment on above: Result Comment: Canc elled via OM: Order cancelled - Patient discharged Performed By: #### L 500.4050 ####[facility] [address] [place], [address] AST Normal 15-37 [facility] Comment on above: Result Comment: Canc elled via OM: Order cancelled - Patient discharged Performed By: #### L 500.4050 ####[facility] [address] [place], [address] BUN Normal 7-18 [facility] Comment on above: Result Comment: Canc elled via OM: Order cancelled - Patient discharged Performed By: #### L 500.4050 ####[facility] [address] [place], [address] BUN/CRE Normal 10-20 [facility] Comment on above: Result Comment: Canc elled via OM: Order cancelled - Patient discharged Performed By: #### L 500.4050 ####[facility] [address] [place], [address] CA,Total Normal 8.5-10.1 [facility] Comment on above: Result Comment: Canc elled via OM: Order cancelled - Patient discharged Performed By: #### L 500.4050 ####[facility] [address] [place], [address] CL Normal 98-107 [facility] Comment on above: Result Comment: Canc elled via OM: Order cancelled - Patient discharged Performed By: #### L 500.4050 ####[facility] [address] [place], [address] CO2 Normal 21.0-32.0 [facility] Comment on above: Result Comment: Canc elled via OM: Order cancelled - Patient discharged Performed By: #### L 500.4050 ####[facility] [address] [place], [address] CREAT,SERUM Normal 0.55-1.02 [facility] Comment on above: Result Comment: Canc elled via OM: Order cancelled - Patient discharged Performed By: #### L 500.4050 ####[facility] [address] [place], [address] EST GFR Normal >60 [facility] Comment on above: Result Comment: Canc elled via OM: Order cancelled - Patient discharged Performed By: #### L 500.4050 ####[facility] [address] [place], [address] EST GFR - AA Normal >60 [facility] Comment on above: Result Comment: Canc elled via OM: Order cancelled - Patient discharged Performed By: #### L 500.4050 ####[facility] [address] [place], [address] GAP Normal 5-15 [facility] Comment on above: Result Comment: Canc elled via OM: Order cancelled - Patient discharged Performed By: #### L 500.4050 ####[facility] [address] [place], [address] GLU Normal 74-106 [facility] Comment on above: Result Comment: Canc elled via OM: Order cancelled - Patient discharged Performed By: #### L 500.4050 ####[facility] [address] [place], [address] Potassium Normal 3.5-5.1 [facility] Comment on above: Result Comment: Canc elled via OM: Order cancelled - Patient discharged Performed By: #### L 500.4050 ####[facility] [address] [place], [address] T BILI Normal 0.20-1.00 [facility] Comment on above: Result Comment: Canc elled via OM: Order cancelled - Patient discharged Performed By: #### L 500.4050 ####[facility] [address] [place], [address] T PROT Normal 6.4-8.2 [facility] Comment on above: Result Comment: Canc elled via OM: Order cancelled - Patient discharged Performed By: #### L 500.4050 ####[facility] [address] [place], [address] Comprehensive Metabolic Profil Normal 136-145 [facility] Comment on above: Result Comment: Canc elled via OM: Order cancelled - Patient discharged Performed By: #### L 500.4050 ####[facility] [address] [place], [address] Comprehensive Metabolic Prof ilon 01-09-2024 ALB Normal 3.2-5.0 [facility] Comment on above: Result Comment: Canc elled via OM: Order cancelled - Patient discharged Performed By: #### L 500.4050 ####[facility] [address] [place], [address] ALK P Normal 45-117 [facility] Comment on above: Result Comment: Canc elled via OM: Order cancelled - Patient discharged Performed By: #### L 500.4050 ####[facility] [address] [place], [address] ALT Normal 13-56 [facility] Comment on above: Result Comment: Canc elled via OM: Order cancelled - Patient discharged Performed By: #### L 500.4050 ####[facility] [address] [place], [address] AST Normal 15-37 [facility] Comment on above: Result Comment: Canc elled via OM: Order cancelled - Patient discharged Performed By: #### L 500.4050 ####[facility] [address] [place], [address] BUN Normal 7-18 [facility] Comment on above: Result Comment: Canc elled via OM: Order cancelled - Patient discharged Performed By: #### L 500.4050 ####[facility] [address] [place], [address] BUN/CRE Normal 10-20 [facility] Comment on above: Result Comment: Canc elled via OM: Order cancelled - Patient discharged Performed By: #### L 500.4050 ####[facility] [address] [place], [address] CA,Total Normal 8.5-10.1 [facility] Comment on above: Result Comment: Canc elled via OM: Order cancelled - Patient discharged Performed By: #### L 500.4050 ####[facility] [address] [place], [address] CL Normal 98-107 [facility] Comment on above: Result Comment: Canc elled via OM: Order cancelled - Patient discharged Performed By: #### L 500.4050 ####[facility] [address] [place], [address] CO2 Normal 21.0-32.0 [facility] Comment on above: Result Comment: Canc elled via OM: Order cancelled - Patient discharged Performed By: #### L 500.4050 ####[facility] [address] [place], [address] CREAT,SERUM Normal 0.55-1.02 [facility] Comment on above: Result Comment: Canc elled via OM: Order cancelled - Patient discharged Performed By: #### L 500.4050 ####[facility] [address] [place], [address] EST GFR Normal >60 [facility] Comment on above: Result Comment: Canc elled via OM: Order cancelled - Patient discharged Performed By: #### L 500.4050 ####[facility] [address] [place], [address] EST GFR - AA Normal >60 [facility] Comment on above: Result Comment: Canc elled via OM: Order cancelled - Patient discharged Performed By: #### L 500.4050 ####[facility] [address] [place], [address] GAP Normal 5-15 [facility] Comment on above: Result Comment: Canc elled via OM: Order cancelled - Patient discharged Performed By: #### L 500.4050 ####[facility] [address] [place], [address] GLU Normal 74-106 [facility] Comment on above: Result Comment: Canc elled via OM: Order cancelled - Patient discharged Performed By: #### L 500.4050 ####[facility] [address] [place], [address] Potassium Normal 3.5-5.1 [facility] Comment on above: Result Comment: Canc elled via OM: Order cancelled - Patient discharged Performed By: #### L 500.4050 ####[facility] [address] [place], [address] T BILI Normal 0.20-1.00 [facility] Comment on above: Result Comment: Canc elled via OM: Order cancelled - Patient discharged Performed By: #### L 500.4050 ####[facility] [address] [place], [address] T PROT Normal 6.4-8.2 [facility] Comment on above: Result Comment: Canc elled via OM: Order cancelled - Patient discharged Performed By: #### L 500.4050 ####[facility] [address] [place], [address] Comprehensive Metabolic Profil Normal 136-145 [facility] Comment on above: Result Comment: Canc elled via OM: Order cancelled - Patient discharged Performed By: #### L 500.4050 ####[facility] [address] [place], [address] Comprehensive Metabolic Prof ilon 01-08-2024 ALB Normal 3.2-5.0 [facility] Comment on above: Result Comment: Canc elled via OM: Order cancelled - Patient discharged Performed By: #### L 500.4050 ####[facility] [address] [place], [address] ALK P Normal 45-117 [facility] Comment on above: Result Comment: Canc elled via OM: Order cancelled - Patient discharged Performed By: #### L 500.4050 ####[facility] [address] [place], [address] ALT Normal 13-56 [facility] Comment on above: Result Comment: Canc elled via OM: Order cancelled - Patient discharged Performed By: #### L 500.4050 ####[facility] [address] [place], [address] AST Normal 15-37 [facility] Comment on above: Result Comment: Canc elled via OM: Order cancelled - Patient discharged Performed By: #### L 500.4050 ####[facility] [address] [place], [address] BUN Normal 7-18 [facility] Comment on above: Result Comment: Canc elled via OM: Order cancelled - Patient discharged Performed By: #### L 500.4050 ####[facility] [address] [place], [address] BUN/CRE Normal 10-20 [facility] Comment on above: Result Comment: Canc elled via OM: Order cancelled - Patient discharged Performed By: #### L 500.4050 ####[facility] [address] [place], [address] CA,Total Normal 8.5-10.1 [facility] Comment on above: Result Comment: Canc elled via OM: Order cancelled - Patient discharged Performed By: #### L 500.4050 ####[facility] [address] [place], [address] CL Normal 98-107 [facility] Comment on above: Result Comment: Canc elled via OM: Order cancelled - Patient discharged Performed By: #### L 500.4050 ####[facility] [address] [place], [address] CO2 Normal 21.0-32.0 [facility] Comment on above: Result Comment: Canc elled via OM: Order cancelled - Patient discharged Performed By: #### L 500.4050 ####[facility] [address] [place], [address] CREAT,SERUM Normal 0.55-1.02 [facility] Comment on above: Result Comment: Canc elled via OM: Order cancelled - Patient discharged Performed By: #### L 500.4050 ####[facility] [address] [place], [address] EST GFR Normal >60 [facility] Comment on above: Result Comment: Canc elled via OM: Order cancelled - Patient discharged Performed By: #### L 500.4050 ####[facility] [address] [place], [address] EST GFR - AA Normal >60 [facility] Comment on above: Result Comment: Canc elled via OM: Order cancelled - Patient discharged Performed By: #### L 500.4050 ####[facility] [address] [place], [address] GAP Normal 5-15 [facility] Comment on above: Result Comment: Canc elled via OM: Order cancelled - Patient discharged Performed By: #### L 500.4050 ####[facility] [address] [place], [address] GLU Normal 74-106 [facility] Comment on above: Result Comment: Canc elled via OM: Order cancelled - Patient discharged Performed By: #### L 500.4050 ####[facility] [address] [place], [address] Potassium Normal 3.5-5.1 [facility] Comment on above: Result Comment: Canc elled via OM: Order cancelled - Patient discharged Performed By: #### L 500.4050 ####[facility] [address] [place], [address] T BILI Normal 0.20-1.00 [facility] Comment on above: Result Comment: Canc elled via OM: Order cancelled - Patient discharged Performed By: #### L 500.4050 ####[facility] [address] [place], [address] T PROT Normal 6.4-8.2 [facility] Comment on above: Result Comment: Canc elled via OM: Order cancelled - Patient discharged Performed By: #### L 500.4050 ####[facility] [address] [place], [address] Comprehensive Metabolic Profil Normal 136-145 [facility] Comment on above: Result Comment: Canc elled via OM: Order cancelled - Patient discharged Performed By: #### L 500.4050 ####[facility] [address] [place], [address] CBC W/Diff, Automatedon 11-2 -2023 Absolute Neut Normal 2.0-7.7 [facility] Comment on above: Result Comment: Canc elled via OM: Order cancelled - Patient discharged Performed By: #### L 500.2500, L100.0100 ####[facility] [address] [place], [address] HCT Normal 37-47 [facility] Comment on above: Result Comment: Canc elled via OM: Order cancelled - Patient discharged Performed By: #### L 500.2500, L100.0100 ####[facility] [address] [place], [address] HGB Normal 12.0-15.0 [facility] Comment on above: Result Comment: Canc elled via OM: Order cancelled - Patient discharged Performed By: #### L 500.2500, L100.0100 ####[facility] [address] [place], [address] MCH Normal 27.0-32.0 [facility] Comment on above: Result Comment: Canc elled via OM: Order cancelled - Patient discharged Performed By: #### L 500.2500, L100.0100 ####[facility] [address] [place], [address] MCHC Normal 32-36 [facility] Comment on above: Result Comment: Canc elled via OM: Order cancelled - Patient discharged Performed By: #### L 500.2500, L100.0100 ####[facility] [address] [place], [address] MCV Normal 81-99 [facility] Comment on above: Result Comment: Canc elled via OM: Order cancelled - Patient discharged Performed By: #### L 500.2500, L100.0100 ####[facility] [address] [place], [address] NEUT% Normal 47-70 [facility] Comment on above: Result Comment: Canc elled via OM: Order cancelled - Patient discharged Performed By: #### L 500.2500, L100.0100 ####[facility] [address] [place], [address] PLT Normal 150-450 [facility] Comment on above: Result Comment: Canc elled via OM: Order cancelled - Patient discharged Performed By: #### L 500.2500, L100.0100 ####[facility] [address] [place], [address] RBC Normal 4.2-5.4 [facility] Comment on above: Result Comment: Canc elled via OM: Order cancelled - Patient discharged Performed By: #### L 500.2500, L100.0100 ####[facility] [address] [place], [address] RDW CV Normal 11.6-14.6 [facility] Comment on above: Result Comment: Canc elled via OM: Order cancelled - Patient discharged Performed By: #### L 500.2500, L100.0100 ####[facility] [address] [place], [address] RDW SD Normal 35.1-43.9 [facility] Comment on above: Result Comment: Canc elled via OM: Order cancelled - Patient discharged Performed By: #### L 500.2500, L100.0100 ####[facility] [address] [place], [address] WBC Normal 4.4-11.0 [facility] Comment on above: Result Comment: Canc elled via OM: Order cancelled - Patient discharged Performed By: #### L 500.2500, L100.0100 ####[facility] [address] [place], [address] Comprehensive Metabolic Prof ilon 01-07-2024 ALB Normal 3.2-5.0 [facility] Comment on above: Result Comment: Canc elled via OM: Order cancelled - Patient discharged Performed By: #### L 500.4050 ####[facility] [address] [place], [address] ALK P Normal 45-117 [facility] Comment on above: Result Comment: Canc elled via OM: Order cancelled - Patient discharged Performed By: #### L 500.4050 ####[facility] [address] [place], [address] ALT Normal 13-56 [facility] Comment on above: Result Comment: Canc elled via OM: Order cancelled - Patient discharged Performed By: #### L 500.4050 ####[facility] [address] [place], [address] AST Normal 15-37 [facility] Comment on above: Result Comment: Canc elled via OM: Order cancelled - Patient discharged Performed By: #### L 500.4050 ####[facility] [address] [place], [address] BUN Normal 7-18 [facility] Comment on above: Result Comment: Canc elled via OM: Order cancelled - Patient discharged Performed By: #### L 500.4050 ####[facility] [address] [place], [address] Result Comment: Canc elled via OM: MD Ordered Performed By: #### L 500.2500, L100.0100 ####[facility] [address] [place], [address] BUN/CRE Normal 10-20 [facility] Comment on above: Result Comment: Canc elled via OM: Order cancelled - Patient discharged Performed By: #### L 500.4050 ####[facility] [address] [place], [address] Result Comment: Canc elled via OM: MD Ordered Performed By: #### L 500.2500, L100.0100 ####[facility] [address] [place], [address] CA,Total Normal 8.5-10.1 [facility] Comment on above: Result Comment: Canc elled via OM: Order cancelled - Patient discharged Performed By: #### L 500.4050 ####[facility] [address] [place], [address] Result Comment: Canc elled via OM: MD Ordered Performed By: #### L 500.2500, L100.0100 ####[facility] [address] [place], [address] CL Normal 98-107 [facility] Comment on above: Result Comment: Canc elled via OM: Order cancelled - Patient discharged Performed By: #### L 500.4050 ####[facility] [address] [place], [address] Result Comment: Canc elled via OM: MD Ordered Performed By: #### L 500.2500, L100.0100 ####[facility] [address] [place], [address] CO2 Normal 21.0-32.0 [facility] Comment on above: Result Comment: Canc elled via OM: Order cancelled - Patient discharged Performed By: #### L 500.4050 ####[facility] [address] [place], [address] Result Comment: Canc elled via OM: MD Ordered Performed By: #### L 500.2500, L100.0100 ####[facility] [address] [place], [address] CREAT,SERUM Normal 0.55-1.02 [facility] Comment on above: Result Comment: Canc elled via OM: Order cancelled - Patient discharged Performed By: #### L 500.4050 ####[facility] [address] [place], [address] Result Comment: Canc elled via OM: MD Ordered Performed By: #### L 500.2500, L100.0100 ####[facility] [address] [place], [address] EST GFR Normal >60 [facility] Comment on above: Result Comment: Canc elled via OM: Order cancelled - Patient discharged Performed By: #### L 500.4050 ####[facility] [address] [place], [address] Result Comment: Canc elled via OM: MD Ordered Performed By: #### L 500.2500, L100.0100 ####[facility] [address] [place], [address] EST GFR - AA Normal >60 [facility] Comment on above: Result Comment: Canc elled via OM: Order cancelled - Patient discharged Performed By: #### L 500.4050 ####[facility] [address] [place], [address] Result Comment: Canc elled via OM: MD Ordered Performed By: #### L 500.2500, L100.0100 ####[facility] [address] [place], [address] GAP Normal 5-15 [facility] Comment on above: Result Comment: Canc elled via OM: Order cancelled - Patient discharged Performed By: #### L 500.4050 ####[facility] [address] [place], [address] Result Comment: Canc elled via OM: MD Ordered Performed By: #### L 500.2500, L100.0100 ####[facility] [address] [place], [address] GLU Normal 74-106 [facility] Comment on above: Result Comment: Canc elled via OM: Order cancelled - Patient discharged Performed By: #### L 500.4050 ####[facility] [address] [place], [address] Result Comment: Canc elled via OM: MD Ordered Performed By: #### L 500.2500, L100.0100 ####[facility] [address] [place], [address] Potassium Normal 3.5-5.1 [facility] Comment on above: Result Comment: Canc elled via OM: Order cancelled - Patient discharged Performed By: #### L 500.4050 ####[facility] [address] [place], [address] Result Comment: Canc elled via OM: MD Ordered Performed By: #### L 500.2500, L100.0100 ####[facility] [address] [place], [address] T BILI Normal 0.20-1.00 [facility] Comment on above: Result Comment: Canc elled via OM: Order cancelled - Patient discharged Performed By: #### L 500.4050 ####[facility] [address] [place], [address] T PROT Normal 6.4-8.2 [facility] Comment on above: Result Comment: Canc elled via OM: Order cancelled - Patient discharged Performed By: #### L 500.4050 ####[facility] [address] [place], [address] Comprehensive Metabolic Profil Normal 136-145 [facility] Comment on above: Result Comment: Canc elled via OM: Order cancelled - Patient discharged Performed By: #### L 500.4050 ####[facility] [address] [place], [address] Result Comment: Canc elled via OM: MD Ordered Performed By: #### L 500.2500, L100.0100 ####[facility] [address] [place], [address] CBC W/Diff, Automatedon 11-2 Absolute Neut Normal 2.0-7.7 [facility] Comment on above: Result Comment: Canc elled via OM: Order cancelled - Patient discharged Performed By: #### L 500.2500, L100.0100 ####[facility] [address] [place], [address] HCT Normal 37-47 [facility] Comment on above: Result Comment: Canc elled via OM: Order cancelled - Patient discharged Performed By: #### L 500.2500, L100.0100 ####[facility] [address] [place], [address] HGB Normal 12.0-15.0 [facility] Comment on above: Result Comment: Canc elled via OM: Order cancelled - Patient discharged Performed By: #### L 500.2500, L100.0100 ####[facility] [address] [place], [address] MCH Normal 27.0-32.0 [facility] Comment on above: Result Comment: Canc elled via OM: Order cancelled - Patient discharged Performed By: #### L 500.2500, L100.0100 ####[facility] [address] [place], [address] MCHC Normal 32-36 [facility] Comment on above: Result Comment: Canc elled via OM: Order cancelled - Patient discharged Performed By: #### L 500.2500, L100.0100 ####[facility] [address] [place], [address] MCV Normal 81-99 [facility] Comment on above: Result Comment: Canc elled via OM: Order cancelled - Patient discharged Performed By: #### L 500.2500, L100.0100 ####[facility] [address] [place], [address] NEUT% Normal 47-70 [facility] Comment on above: Result Comment: Canc elled via OM: Order cancelled - Patient discharged Performed By: #### L 500.2500, L100.0100 ####[facility] [address] [place], [address] PLT Normal 150-450 [facility] Comment on above: Result Comment: Canc elled via OM: Order cancelled - Patient discharged Performed By: #### L 500.2500, L100.0100 ####[facility] [address] [place], [address] RBC Normal 4.2-5.4 [facility] Comment on above: Result Comment: Canc elled via OM: Order cancelled - Patient discharged Performed By: #### L 500.2500, L100.0100 ####[facility] [address] [place], [address] RDW CV Normal 11.6-14.6 [facility] Comment on above: Result Comment: Canc elled via OM: Order cancelled - Patient discharged Performed By: #### L 500.2500, L100.0100 ####[facility] [address] [place], [address] RDW SD Normal 35.1-43.9 [facility] Comment on above: Result Comment: Canc elled via OM: Order cancelled - Patient discharged Performed By: #### L 500.2500, L100.0100 ####[facility] [address] [place], [address] WBC Normal 4.4-11.0 [facility] Comment on above: Result Comment: Canc elled via OM: Order cancelled - Patient discharged Performed By: #### L 500.2500, L100.0100 ####[facility] [address] [place], [address] Comprehensive Metabolic Prof ilon 01-06-2024 ALB Normal 3.2-5.0 [facility] Comment on above: Result Comment: Canc elled via OM: Order cancelled - Patient discharged Performed By: #### L 500.4050 ####[facility] [address] [place], [address] ALK P Normal 45-117 [facility] Comment on above: Result Comment: Canc elled via OM: Order cancelled - Patient discharged Performed By: #### L 500.4050 ####[facility] [address] [place], [address] ALT Normal 13-56 [facility] Comment on above: Result Comment: Canc elled via OM: Order cancelled - Patient discharged Performed By: #### L 500.4050 ####[facility] [address] [place], [address] AST Normal 15-37 [facility] Comment on above: Result Comment: Canc elled via OM: Order cancelled - Patient discharged Performed By: #### L 500.4050 ####[facility] [address] [place], [address] BUN Normal 7-18 [facility] Comment on above: Result Comment: Canc elled via OM: Order cancelled - Patient discharged Performed By: #### L 500.4050 ####[facility] [address] [place], [address] Result Comment: Canc elled via OM: MD Ordered Performed By: #### L 500.2500, L100.0100 ####[facility] [address] [place], [address] BUN/CRE Normal 10-20 [facility] Comment on above: Result Comment: Canc elled via OM: Order cancelled - Patient discharged Performed By: #### L 500.4050 ####[facility] [address] [place], [address] Result Comment: Canc elled via OM: MD Ordered Performed By: #### L 500.2500, L100.0100 ####[facility] [address] [place], [address] CA,Total Normal 8.5-10.1 [facility] Comment on above: Result Comment: Canc elled via OM: Order cancelled - Patient discharged Performed By: #### L 500.4050 ####[facility] [address] [place], [address] Result Comment: Canc elled via OM: MD Ordered Performed By: #### L 500.2500, L100.0100 ####[facility] [address] [place], [address] CL Normal 98-107 [facility] Comment on above: Result Comment: Canc elled via OM: Order cancelled - Patient discharged Performed By: #### L 500.4050 ####[facility] [address] [place], [address] Result Comment: Canc elled via OM: MD Ordered Performed By: #### L 500.2500, L100.0100 ####[facility] [address] [place], [address] CO2 Normal 21.0-32.0 [facility] Comment on above: Result Comment: Canc elled via OM: Order cancelled - Patient discharged Performed By: #### L 500.4050 ####[facility] [address] [place], [address] Result Comment: Canc elled via OM: MD Ordered Performed By: #### L 500.2500, L100.0100 ####[facility] [address] [place], [address] CREAT,SERUM Normal 0.55-1.02 [facility] Comment on above: Result Comment: Canc elled via OM: Order cancelled - Patient discharged Performed By: #### L 500.4050 ####[facility] [address] [place], [address] Result Comment: Canc elled via OM: MD Ordered Performed By: #### L 500.2500, L100.0100 ####[facility] [address] [place], [address] EST GFR Normal >60 [facility] Comment on above: Result Comment: Canc elled via OM: Order cancelled - Patient discharged Performed By: #### L 500.4050 ####[facility] [address] [place], [address] Result Comment: Canc elled via OM: MD Ordered Performed By: #### L 500.2500, L100.0100 ####[facility] [address] [place], [address] EST GFR - AA Normal >60 [facility] Comment on above: Result Comment: Canc elled via OM: Order cancelled - Patient discharged Performed By: #### L 500.4050 ####[facility] [address] [place], [address] Result Comment: Canc elled via OM: MD Ordered Performed By: #### L 500.2500, L100.0100 ####[facility] [address] [place], [address] GAP Normal 5-15 [facility] Comment on above: Result Comment: Canc elled via OM: Order cancelled - Patient discharged Performed By: #### L 500.4050 ####[facility] [address] [place], [address] Result Comment: Canc elled via OM: MD Ordered Performed By: #### L 500.2500, L100.0100 ####[facility] [address] [place], [address] GLU Normal 74-106 [facility] Comment on above: Result Comment: Canc elled via OM: Order cancelled - Patient discharged Performed By: #### L 500.4050 ####[facility] [address] [place], [address] Result Comment: Canc elled via OM: MD Ordered Performed By: #### L 500.2500, L100.0100 ####[facility] [address] [place], [address] Potassium Normal 3.5-5.1 [facility] Comment on above: Result Comment: Canc elled via OM: Order cancelled - Patient discharged Performed By: #### L 500.4050 ####[facility] [address] [place], [address] Result Comment: Canc elled via OM: MD Ordered Performed By: #### L 500.2500, L100.0100 ####[facility] [address] [place], [address] T BILI Normal 0.20-1.00 [facility] Comment on above: Result Comment: Canc elled via OM: Order cancelled - Patient discharged Performed By: #### L 500.4050 ####[facility] [address] [place], [address] T PROT Normal 6.4-8.2 [facility] Comment on above: Result Comment: Canc elled via OM: Order cancelled - Patient discharged Performed By: #### L 500.4050 ####[facility] [address] [place], [address] Comprehensive Metabolic Profil Normal 136-145 [facility] Comment on above: Result Comment: Canc elled via OM: Order cancelled - Patient discharged Performed By: #### L 500.4050 ####[facility] [address] [place], [address] Result Comment: Canc elled via OM: MD Ordered Performed By: #### L 500.2500, L100.0100 ####[facility] [address] [place], [address] ALP [Catalytic activity/Vol] Ordered By: Zahra Palacio on 01-05-2024 Serum or plasma alkaline phosphatase measurement 65 U/L 45-117 [facility] ALT [Catalytic activity/Vol] Ordered By: Zahra Palacio on 01-05-2024 Serum or plasma alanine aminotransferase (ALT) measurement 19 U/L 13-56 [facility] Absolute neutrophil countOrd ered By: Zahra Palacio on 01-05-2024 Absolute neutrophil count 5.0 X10^3/uL 2.0-7.7 [facility] Albumin [Mass/Vol]Ordered By : Zahra Palacio on 01-05-2024 Serum or plasma albumin measurement (mass/volume) 3.1 g/dL Low 3.2-5.0 [facility] Albumin to globulin ratioOrd ered By: aZhra Palacio on 01-05-2024 Albumin to globulin ratio 1.0 RATIO 0.9-2.4 [facility] Basic Metabolic Profile (BMP )on 01-05-2024 BUN Normal 7-18 [facility] Comment on above: Result Comment: Canc elled via OM: MD Ordered Performed By: #### L 500.2500, L100.0100 ####[facility] [address] [place], [address] BUN/CRE Normal 10-20 [facility] Comment on above: Result Comment: Canc elled via OM: MD Ordered Performed By: #### L 500.2500, L100.0100 ####[facility] [address] [place], [address] CA,Total Normal 8.5-10.1 [facility] Comment on above: Result Comment: Canc elled via OM: MD Ordered Performed By: #### L 500.2500, L100.0100 ####[facility] [address] [place], [address] CL Normal 98-107 [facility] Comment on above: Result Comment: Canc elled via OM: MD Ordered Performed By: #### L 500.2500, L100.0100 ####[facility] [address] [place], [address] CO2 Normal 21.0-32.0 [facility] Comment on above: Result Comment: Canc elled via OM: MD Ordered Performed By: #### L 500.2500, L100.0100 ####[facility] [address] [place], [address] CREAT,SERUM Normal 0.55-1.02 [facility] Comment on above: Result Comment: Canc elled via OM: MD Ordered Performed By: #### L 500.2500, L100.0100 ####[facility] [address] [place], [address] EST GFR Normal >60 [facility] Comment on above: Result Comment: Canc elled via OM: MD Ordered Performed By: #### L 500.2500, L100.0100 ####[facility] [address] [place], [address] EST GFR - AA Normal >60 [facility] Comment on above: Result Comment: Canc elled via OM: MD Ordered Performed By: #### L 500.2500, L100.0100 ####[facility] [address] [place], [address] GAP Normal 5-15 [facility] Comment on above: Result Comment: Canc elled via OM: MD Ordered Performed By: #### L 500.2500, L100.0100 ####[facility] [address] [place], [address] GLU Normal 74-106 [facility] Comment on above: Result Comment: Canc elled via OM: MD Ordered Performed By: #### L 500.2500, L100.0100 ####[facility] [address] [place], [address] Potassium Normal 3.5-5.1 [facility] Comment on above: Result Comment: Canc elled via OM: MD Ordered Performed By: #### L 500.2500, L100.0100 ####[facility] [address] [place], [address] Basic Metabolic Profile (BMP) Normal 136-145 [facility] Comment on above: Result Comment: Canc elled via OM: MD Ordered Performed By: #### L 500.2500, L100.0100 ####[facility] [address] [place], [address] Basophil percentageOrdered B y: Zahra Palacio on 01-05-2024 Basophil percentage 0.1 % 0-1 [facility] Bedside Glucoseon 01-05-2024 FINGERSTICK GLU 183 mg/dL High 74-106 [facility] Comment on above: Result Comment: GERALDO GEMENT OF PATIENT CARE PER NURSING PROTOCOL Performed By: #### L 501.080 ####[facility] [address] [place], [address] FINGERSTICK GLU 153 mg/dL High 74-106 [facility] Comment on above: Result Comment: GERALDO GEMENT OF PATIENT CARE PER NURSING PROTOCOL Performed By: #### L 501.080 ####[facility] [address] [place], [address] FINGERSTICK GLU 169 mg/dL High 74-106 [facility] Comment on above: Result Comment: GERALDO GEMENT OF PATIENT CARE PER NURSING PROTOCOL Performed By: #### L 501.080 ####[facility] [address] [place], [address] Bilirubin, totalOrdered By: Zahra Palacio on 01-05-2024 Bilirubin, total 0.60 mg/dL 0.20-1.00 [facility] Blood urea nitrogen (BUN)/cr eatinine ratioOrdered By: Zahra Palacio on 01-05-2024 Blood urea nitrogen (BUN)/creatinine ratio 17.0 RATIO 10-20 [facility] CBC W/Diff, Automatedon 12-14 Absolute Lymph 1.78 X10 3/uL Normal 0.83-4.51 [facility] Comment on above: Performed By: #### L 500.2500, L100.0100 ####[facility] [address] [place], [address] Absolute Neut 5.0 X10 3/uL Normal 2.0-7.7 [facility] Comment on above: Performed By: #### L 500.2500, L100.0100 ####[facility] [address] [place], [address] Basophils/100 WBC (Bld) 0.1 % Normal 0-1 [facility] Comment on above: Performed By: #### L 500.2500, L100.0100 ####[facility] [address] [place], [address] Eosinophils/100 WBC (Bld) 3.1 % Normal 0-5 [facility] Comment on above: Performed By: #### L 500.2500, L100.0100 ####[facility] [address] [place], [address] Erythrocyte distribution width (RBC) [Ratio] 13.2 % Normal 11.6-14.6 [facility] Comment on above: Performed By: #### L 500.2500, L100.0100 ####[facility] [address] [place], [address] Hematocrit (Bld) [Volume fraction] 35.0 % Low 37-47 [facility] Comment on above: Performed By: #### L 500.2500, L100.0100 ####[facility] [address] [place], [address] Hemoglobin (Bld) [Mass/Vol] 11.1 g/dL Low 12.0-15.0 [facility] Comment on above: Performed By: #### L 500.2500, L100.0100 ####[facility] [address] [place], [address] IG% 0.400 Normal 0.0-0.9 [facility] Comment on above: Result Comment: IG% - Immature Granulocytes (promyelocytes, myelocytes andmetamyelocytes) > 1% indicates that a LEFT SHIFT is Present. Performed By: #### L 500.2500, L100.0100 ####[facility] [address] [place], [address] Lymphocytes/100 WBC (Bld) 23.3 % Normal 19-41 [facility] Comment on above: Performed By: #### L 500.2500, L100.0100 ####[facility] [address] [place], [address] MCH (RBC) [Entitic mass] 29.8 pg Normal 27.0-32.0 [facility] Comment on above: Performed By: #### L 500.2500, L100.0100 ####[facility] [address] [place], [address] MCHC (RBC) [Mass/Vol] 31.7 g/dL Low 32-36 [facility] Comment on above: Performed By: #### L 500.2500, L100.0100 ####[facility] [address] [place], [address] MCV (RBC) [Entitic vol] 93.8 fL Normal 81-99 [facility] Comment on above: Performed By: #### L 500.2500, L100.0100 ####[facility] [address] [place], [address] Monocytes/100 WBC (Bld) 6.9 % Normal 0-10 [facility] Comment on above: Performed By: #### L 500.2500, L100.0100 ####[facility] [address] [place], [address] Neutrophils/100 WBC (Bld) 66.2 % Normal 47-70 [facility] Comment on above: Performed By: #### L 500.2500, L100.0100 ####[facility] [address] [place], [address] Nucleated RBC (Bld) [#/Vol] 0 10*3/uL Normal 0-5 [facility] Comment on above: Performed By: #### L 500.2500, L100.0100 ####[facility] [address] [place], [address] Platelet mean volume (Bld) [Entitic vol] 10.8 fL Normal 6.2-12.0 [facility] Comment on above: Performed By: #### L 500.2500, L100.0100 ####[facility] [address] [place], [address] Platelets (Bld) [#/Vol] 219 10*3/uL Normal 150-450 [facility] Comment on above: Performed By: #### L 500.2500, L100.0100 ####[facility] [address] [place], [address] RBC (Bld) [#/Vol] 3.73 10*6/uL Low 4.2-5.4 [facility] Comment on above: Performed By: #### L 500.2500, L100.0100 ####[facility] [address] [place], [address] RDW SD 44.8 fl High 35.1-43.9 [facility] Comment on above: Performed By: #### L 500.2500, L100.0100 ####[facility] [address] [place], [address] WBC (Bld) [#/Vol] 7.6 10*3/uL Normal 4.4-11.0 [facility] Comment on above: Performed By: #### L 500.2500, L100.0100 ####[facility] [address] [place], [address] Calcium [Mass/Vol]Ordered By : Zahra Palacio on 01-05-2024 Serum or plasma calcium measurement (mass/volume) 8.5 mg/dL 8.5-10.1 [facility] Carbon dioxide measurementOr dered By: Zahra Palacio on 01-05-2024 Carbon dioxide measurement 27.0 mmol/L 21.0-32.0 [facility] Chloride measurementOrdered By: Zahra Palacio on 01-05-2024 Chloride measurement 108 mmol/L High 98-107 [facility] Comprehensive Metabolic Prof ilon 01-05-2024 Albumin [Mass/Vol] 3.1 g/dL Low 3.2-5.0 [facility] Comment on above: Performed By: #### L 500.4050 ####[facility] [address] [place], [address] Albumin/Globulin [Mass ratio] 1.0 {ratio} Normal 0.9-2.4 [facility] Comment on above: Performed By: #### L 500.4050 ####[facility] [address] [place], [address] ALK P 65 U/L Normal 45-117 [facility] Comment on above: Performed By: #### L 500.4050 ####[facility] [address] [place], [address] ALT [Catalytic activity/Vol] 19 U/L Normal 13-56 [facility] Comment on above: Performed By: #### L 500.4050 ####[facility] [address] [place], [address] AST [Catalytic activity/Vol] 14 U/L Low 15-37 [facility] Comment on above: Performed By: #### L 500.4050 ####[facility] [address] [place], [address] Bilirubin [Mass/Vol] 0.60 mg/dL Normal 0.20-1.00 [facility] Comment on above: Result Comment: For patients on eltrombopag therapy, use of Dimension [place] TBIL is not recommended. Performed By: #### L 500.4050 ####[facility] [address] [place], [address] BUN/CRE 17.0 RATIO Normal 10-20 [facility] Comment on above: Performed By: #### L 500.4050 ####[facility] [address] [place], [address] CA,Total 8.5 mg/dL Normal 8.5-10.1 [facility] Comment on above: Performed By: #### L 500.4050 ####[facility] [address] [place], [address] Chloride [Moles/Vol] 108 mmol/L High 98-107 [facility] Comment on above: Performed By: #### L 500.4050 ####[facility] [address] [place], [address] CO2 [Moles/Vol] 27.0 mmol/L Normal 21.0-32.0 [facility] Comment on above: Performed By: #### L 500.4050 ####[facility] [address] [place], [address] Creatinine [Mass/Vol] 0.82 mg/dL Normal 0.55-1.02 [facility] Comment on above: Result Comment: The validity of the calculated GFR GFRAA in patients over70 years has not been determined. Clinical correlation isessential. Performed By: #### L 500.4050 ####[facility] [address] [place], [address] ECRCL 64.01 ml/min Normal [facility] Comment on above: Performed By: #### L 500.4050 ####[facility] [address] [place], [address] EST GFR - AA 88 mL/min Normal >60 [facility] Comment on above: Result Comment: Afri can Croatian GFR Calc Performed By: #### L 500.4050 ####[facility] [address] [place], [address] GAP 6 Normal 5-15 [facility] Comment on above: Performed By: #### L 500.4050 ####[facility] [address] [place], [address] GFR/1.73 sq M.predicted among non-blacks MDRD (S/P/Bld) [Vol rate/Area] 73 mL/min/{1.73_m2} Normal >60 [facility] Comment on above: Result Comment: Non- GFR Calc Performed By: #### L 500.4050 ####[facility] [address] [place], [address] Globulin (S) [Mass/Vol] 3.0 g/dL Normal 2.2-4.2 [facility] Comment on above: Performed By: #### L 500.4050 ####[facility] [address] [place], [address] Glucose [Mass/Vol] 199 mg/dL High 74-106 [facility] Comment on above: Result Comment: Fast ing Glucose result greater than or equal to 126 mg/dLsuggests DIABETES MELLITUS per A.D.A. criteria. Performed By: #### L 500.4050 ####[facility] [address] [place], [address] Potassium [Moles/Vol] 3.4 mmol/L Low 3.5-5.1 [facility] Comment on above: Performed By: #### L 500.4050 ####[facility] [address] [place], [address] Sodium [Moles/Vol] 141 mmol/L Normal 136-145 [facility] Comment on above: Performed By: #### L 500.4050 ####[facility] [address] [place], [address] T PROT 6.1 g/dL Low 6.4-8.2 [facility] Comment on above: Performed By: #### L 500.4050 ####[facility] [address] [place], [address] Urea nitrogen [Mass/Vol] 14 mg/dL Normal 7-18 [facility] Comment on above: Performed By: #### L 500.4050 ####[facility] [address] [place], [place], [address] Creatinine [Mass/Vol]Ordered By: Zahra Palacio on 01-05-2024 Serum or plasma creatinine measurement (mass/volume) 0.82 mg/dL 0.55-1.02 [facility] Culture, Blood (WB)on 2023 CUB No growth in 5 days. Normal [facility] Comment on above: Performed By: #### M 200.1000 ####[facility] [address] [facility] [place], [address] Discharge Instructionon 12-14 Discharge Instruction Normal [facility] Eosinophil percentageOrdered By: Zahra Palacio on 01-05-2024 Eosinophil percentage 3.1 % 0-5 [facility] Erythrocyte distribution wid th (RBC) [Entitic vol]Ordered By: Zahra Palacio on 01-05-2024 Erythrocyte distribution width standard deviation 44.8 fl High 35.1-43.9 [facility] Erythrocyte distribution wid th (RBC) [Ratio]Ordered By: Zahra Palacio on 01-05-2024 Erythrocyte distribution width ratio 13.2 % 11.6-14.6 [facility] Estimated glomerular filtrat ion rate (GFR) AmericanOrdered By: Zahra Palacio on 01-05-2024 Estimated glomerular filtration rate (GFR) 88 mL/min >60 [facility] Estimation of creatinine maribel aranceOrdered By: Zahra Palacio on 01-05-2024 Estimation of creatinine clearance 64.01 ml/min [facility] Glomerular filtration rate ( GFR) estimationOrdered By: Zahra Palacio on 01-05-2024 Glomerular filtration rate (GFR) estimation 73 mL/min >60 [facility] Glucose measurementOrdered B y: Zahra Palacio on 01-05-2024 Glucose measurement 199 mg/dL High 74-106 [facility] Glucose measurement at bedsi deOrdered By: Zahra Palacio on 01-05-2024 Glucose measurement at bedside 183 mg/dL High 74-106 [facility] Hematocrit Auto (Bld) [Volum e fraction]Ordered By: Zahra Palacio on 01-05-2024 Automated blood hematocrit (percentage) 35.0 % Low 37-47 [facility] Hemoglobin measurementOrdere d By: Zahra Palacio on 01-05-2024 Hemoglobin measurement 11.1 g/dL Low 12.0-15.0 [facility] Immature granulocytes/100 WB C Auto (Bld)Ordered By: Zahra Palacio on 01-05-2024 Automated immature granulocyte percentage 0.400 % 0.0-0.9 [facility] Lymphocytes Auto (Unsp spec) [#/Vol]Ordered By: Zahra Palacio on 01-05-2024 Absolute lymphocyte count 1.78 X10^3/uL 0.83-4.51 [facility] Lymphocytes/100 WBC Auto (Un sp spec)Ordered By: Zahra Palacio on 01-05-2024 Automated lymphocyte count as percentage of total leukocytes 23.3 % 19-41 [facility] MCV (RBC) [Entitic vol]Order ed By: Zahra Palacio on 01-05-2024 MCV (mean corpuscular volume) determination 93.8 fL 81-99 [facility] Mean corpuscular hemoglobin (MCH) determinationOrdered By: Zahra Palacio on 01-05-2024 Mean corpuscular hemoglobin (MCH) determination 29.8 pg 27.0-32.0 [facility] Mean corpuscular hemoglobin concentration (MCHC) determinationOrdered By: Zahra Palacio on 01-05-2024 Mean corpuscular hemoglobin concentration (MCHC) determination 31.7 g/dL Low 32-36 [facility] Mean platelet volume determi nationOrdered By: Zahra Plaacio on 01-05-2024 Mean platelet volume determination 10.8 fl 6.2-12.0 [facility] Monocyte percentageOrdered B y: Zahra Palacio on 01-05-2024 Monocyte percentage 6.9 % 0-10 [facility] Neutrophil percentageOrdered By: Zahra Palacio on 01-05-2024 Neutrophil percentage 66.2 % 47-70 [facility] No Panel InformationOrdered By: Zahra Palacio on 01-05-2024 14 U/L Low 15-37 [facility] Nucleated red blood cell per centageOrdered By: Zahra Palacio on 01-05-2024 Nucleated red blood cell percentage 0 % 0-5 [facility] Platelet countOrdered By: Didier Palacio on 01-05-2024 Platelet count 219 K/mm3 150-450 [facility] Potassium measurementOrdered By: Zahra Palacio on 01-05-2024 Potassium measurement 3.4 mmol/L Low 3.5-5.1 [facility] RBC Auto (Bld) [#/Vol]Ordere d By: Zahra Palacio on 01-05-2024 Automated blood erythrocyte count 3.73 M/mm3 Low 4.2-5.4 [facility] Serum anion gap measurementO rdered By: Zahra Palacio on 01-05-2024 Serum anion gap measurement 6 5-15 [facility] Serum globulin measurementOr dered By: Zahra Palacio on 01-05-2024 Serum globulin measurement 3.0 g/dL 2.2-4.2 [facility] Sodium levelOrdered By: Trish Palacio on 01-05-2024 Sodium level 141 mmol/L 136-145 [facility] Total proteinOrdered By: Rhoda Palacio on 01-05-2024 Total protein 6.1 g/dL Low 6.4-8.2 [facility] Urea nitrogen [Mass/Vol]Orde red By: Zahra Palacio on 01-05-2024 Serum or plasma urea nitrogen measurement (mass/volume) 14 mg/dL - [facility] White blood cell (WBC) count Ordered By: Zahra Palacio on 01-05-2024 White blood cell (WBC) count 7.6 K/mm3 4.4-11.0 [facility] 12 Lead EKGon 01-04-2024 12 Lead EKG Normal [facility] Basic Metabolic Profile (BMP )on 01-04-2024 BUN Normal 08-29 [facility] Comment on above: Result Comment: Lalito whitlock via OM: Ordered Performed By: #### L 100.0100, L500.2500 ####[facility] [address] [place], [place], [id number] Result Comment: OVER LAP WITH CMP ORDERED BY DR. ZAHRA PALACIO Performed By: #### L 500.2500 ####[facility] [address] [place], [place], [address] BUN/CRE Normal - [facility] Comment on above: Result Comment: Canc elled via OM: MD Ordered Performed By: #### L 100.0100, L500.2500 ####[facility] [address] [place], [address] Result Comment: OVER LAP WITH CMP ORDERED BY DR. ZAHRA PALACIO Performed By: #### L 500.2500 ####[facility] [address] [place], [address] CA,Total Normal 8.5-10.1 [facility] Comment on above: Result Comment: Canc elled via OM: MD Ordered Performed By: #### L 100.0100, L500.2500 ####[facility] [address] [place], [address] Result Comment: OVER LAP WITH CMP ORDERED BY DR. ZAHRA PALACIO Performed By: #### L 500.2500 ####[facility] [address] [place], [address] CL Normal 98-107 [facility] Comment on above: Result Comment: Canc elled via OM: MD Ordered Performed By: #### L 100.0100, L500.2500 ####[facility] [address] [place], [address] Result Comment: OVER LAP WITH CMP ORDERED BY DR. ZAHRA PALACIO Performed By: #### L 500.2500 ####[facility] [address] [place], [address] CO2 Normal 21.0-32.0 [facility] Comment on above: Result Comment: Canc elled via OM: MD Ordered Performed By: #### L 100.0100, L500.2500 ####[facility] [address] [place], [address] Result Comment: OVER LAP WITH CMP ORDERED BY DR. ZAHRA PALACIO Performed By: #### L 500.2500 ####[facility] [address] [place], [address] CREAT,SERUM Normal 0.55-1.02 [facility] Comment on above: Result Comment: Lalito elled via OM: Ordered Performed By: #### L 100.0100, L500.2500 ####[facility] [address] [place], [address] Result Comment: OVER LAP WITH CMP ORDERED BY DR. ZAHRA PALACIO Performed By: #### L 500.2500 ####[facility] [address] [place], [address] EST GFR Normal >60 [facility] Comment on above: Result Comment: Lalito elled via OM: MD Ordered Performed By: #### L 100.0100, L500.2500 ####[facility] [address] [place], [address] Result Comment: OVER LAP WITH CMP ORDERED BY DR. ZAHRA PALACIO Performed By: #### L 500.2500 ####[facility] [address] [place], [address] EST GFR - AA Normal >60 [facility] Comment on above: Result Comment: Lalito yaned via OM: MD Ordered Performed By: #### L 100.0100, L500.2500 ####[facility] [address] [place], [address] Result Comment: OVER LAP WITH CMP ORDERED BY DR. ZAHRA PALACIO Performed By: #### L 500.2500 ####[facility] [address] [place], [address] GAP Normal 5-15 [facility] Comment on above: Result Comment: Lalito yaned via OM: MD Ordered Performed By: #### L 100.0100, L500.2500 ####[facility] [address] [place], [address] Result Comment: OVER LAP WITH CMP ORDERED BY DR. ZAHRA PALACIO Performed By: #### L 500.2500 ####[facility] [address] [place], [address] GLU Normal 74-106 [facility] Comment on above: Result Comment: Canc elled via OM: MD Ordered Performed By: #### L 100.0100, L500.2500 ####[facility] [address] [place], [address] Result Comment: OVER LAP WITH CMP ORDERED BY DR. ZAHRA PALACIO Performed By: #### L 500.2500 ####[facility] [address] [place], [address] Potassium Normal 3.5-5.1 [facility] Comment on above: Result Comment: Canc elled via OM: MD Ordered Performed By: #### L 100.0100, L500.2500 ####[facility] [address] [place], [address] Result Comment: OVER LAP WITH CMP ORDERED BY DR. ZAHRA PALACIO Performed By: #### L 500.2500 ####[facility] [address] [place], [address] Basic Metabolic Profile (BMP) Normal 136-145 [facility] Comment on above: Result Comment: Canc elled via OM: MD Ordered Performed By: #### L 100.0100, L500.2500 ####[facility] [address] [place], [address] Result Comment: OVER LAP WITH CMP ORDERED BY DR. ZAHRA PALCAIO Performed By: #### L 500.2500 ####[facility] [address] [place], [address] Bedside Glucoseon 01-04-2024 FINGERSTICK GLU 173 mg/dL High 74-106 [facility] Comment on above: Result Comment: GERALDO BEGUM OF PATIENT CARE PER NURSING PROTOCOL Performed By: #### L 501.080 ####[facility] [address] [place], [address] FINGERSTICK GLU 159 mg/dL High 74-106 [facility] Comment on above: Result Comment: GERALDO GEMENT OF PATIENT CARE PER NURSING PROTOCOL Performed By: #### L 501.080 ####[facility] [address] [place], [address] FINGERSTICK GLU 201 mg/dL High 74-106 [facility] Comment on above: Result Comment: GERALDO GEMENT OF PATIENT CARE PER NURSING PROTOCOL Performed By: #### L 501.080 ####[facility] [address] [place], [address] CBC W/Diff, Automatedon 11-2 -2023 Absolute Lymph 2.34 X10 3/uL Normal 0.83-4.51 [facility] Comment on above: Performed By: #### L 100.0100, L500.2500 ####[facility] [address] [place], [address] Absolute Neut 5.0 X10 3/uL Normal 2.0-7.7 [facility] Comment on above: Performed By: #### L 100.0100, L500.2500 ####[facility] [address] [place], [address] Basophils/100 WBC (Bld) 0.2 % Normal 0-1 [facility] Comment on above: Performed By: #### L 100.0100, L500.2500 ####[facility] [address] [place], [address] Eosinophils/100 WBC (Bld) 3.0 % Normal 0-5 [facility] Comment on above: Performed By: #### L 100.0100, L500.2500 ####[facility] [address] [place], [address] Erythrocyte distribution width (RBC) [Ratio] 13.1 % Normal 11.6-14.6 [facility] Comment on above: Performed By: #### L 100.0100, L500.2500 ####[facility] [address] [place], [address] Hematocrit (Bld) [Volume fraction] 38.2 % Normal 37-47 [facility] Comment on above: Performed By: #### L 100.0100, L500.2500 ####[facility] [address] [place], [address] Hemoglobin (Bld) [Mass/Vol] 11.9 g/dL Low 12.0-15.0 [facility] Comment on above: Performed By: #### L 100.0100, L500.2500 ####[facility] [address] [place], [address] IG% 0.400 Normal 0.0-0.9 [facility] Comment on above: Result Comment: IG% - Immature Granulocytes (promyelocytes, myelocytes andmetamyelocytes) > 1% indicates that a LEFT SHIFT is Present. Performed By: #### L 100.0100, L500.2500 ####[facility] [address] [place], [address] Lymphocytes/100 WBC (Bld) 28.4 % Normal 19-41 [facility] Comment on above: Performed By: #### L 100.0100, L500.2500 ####[facility] [address] [place], [address] MCH (RBC) [Entitic mass] 29.0 pg Normal 27.0-32.0 [facility] Comment on above: Performed By: #### L 100.0100, L500.2500 ####[facility] [address] [place], [address] MCHC (RBC) [Mass/Vol] 31.2 g/dL Low 32-36 [facility] Comment on above: Performed By: #### L 100.0100, L500.2500 ####[facility] [address] [place], [address] MCV (RBC) [Entitic vol] 92.9 fL Normal 81-99 [facility] Comment on above: Performed By: #### L 100.0100, L500.2500 ####[facility] [address] [place], [address] Monocytes/100 WBC (Bld) 7.3 % Normal 0-10 [facility] Comment on above: Performed By: #### L 100.0100, L500.2500 ####[facility] [address] [place], [address] Neutrophils/100 WBC (Bld) 60.7 % Normal 47-70 [facility] Comment on above: Performed By: #### L 100.0100, L500.2500 ####[facility] [address] [place], [address] Nucleated RBC (Bld) [#/Vol] 0 10*3/uL Normal 0-5 [facility] Comment on above: Performed By: #### L 100.0100, L500.2500 ####[facility] [address] [place], [address] Platelet mean volume (Bld) [Entitic vol] 10.0 fL Normal 6.2-12.0 [facility] Comment on above: Performed By: #### L 100.0100, L500.2500 ####[facility] [address] [place], [address] Platelets (Bld) [#/Vol] 239 10*3/uL Normal 150-450 [facility] Comment on above: Performed By: #### L 100.0100, L500.2500 ####[facility] [address] [place], [address] RBC (Bld) [#/Vol] 4.11 10*6/uL Low 4.2-5.4 [facility] Comment on above: Performed By: #### L 100.0100, L500.2500 ####[facility] [address] [place], [address] RDW SD 43.8 fl Normal 35.1-43.9 [facility] Comment on above: Performed By: #### L 100.0100, L500.2500 ####[facility] [address] [place], [address] WBC (Bld) [#/Vol] 8.3 10*3/uL Normal 4.4-11.0 [facility] Comment on above: Performed By: #### L 100.0100, L500.2500 ####[facility] [address] [place], [address] Comprehensive Metabolic Prof [facility] 01-04-2024 Albumin [Mass/Vol] 3.2 g/dL Normal 3.2-5.0 [facility] Comment on above: Performed By: #### L 500.4050 ####[facility] [address] [place], [address] Albumin/Globulin [Mass ratio] 1.0 {ratio} Normal 0.9-2.4 [facility] Comment on above: Performed By: #### L 500.4050 ####[facility] [address] [place], [address] ALK P 64 U/L Normal 45-117 [facility] Comment on above: Performed By: #### L 500.4050 ####[facility] [address] [place], [address] ALT [Catalytic activity/Vol] 20 U/L Normal 13-56 [facility] Comment on above: Performed By: #### L 500.4050 ####[facility] [address] [place], [address] AST [Catalytic activity/Vol] 16 U/L Normal 15-37 [facility] Comment on above: Performed By: #### L 500.4050 ####[facility] [address] [place], [address] Bilirubin [Mass/Vol] 0.50 mg/dL Normal 0.20-1.00 [facility] Comment on above: Result Comment: For patients on eltrombopag therapy, use of Dimension [place] TBIL is not recommended. Performed By: #### L 500.4050 ####[facility] [address] [place], [address] BUN/CRE 21.2 RATIO High 10-20 [facility] Comment on above: Performed By: #### L 500.4050 ####[facility] [address] [place], [address] CA,Total 8.7 mg/dL Normal 8.5-10.1 [facility] Comment on above: Performed By: #### L 500.4050 ####[facility] [address] [place], [address] Chloride [Moles/Vol] 110 mmol/L High 98-107 [facility] Comment on above: Performed By: #### L 500.4050 ####[facility] [address] [place], [address] CO2 [Moles/Vol] 25.0 mmol/L Normal 21.0-32.0 [facility] Comment on above: Performed By: #### L 500.4050 ####[facility] [address] [place], [address] Creatinine [Mass/Vol] 0.80 mg/dL Normal 0.55-1.02 [facility] Comment on above: Result Comment: The validity of the calculated GFR GFRAA in patients over70 years has not been determined. Clinical correlation isessential. Performed By: #### L 500.4050 ####[facility] [address] [place], [address] ECRCL 65.41 ml/min Normal [facility] Comment on above: Performed By: #### L 500.4050 ####[facility] [address] [place], [address] EST GFR - AA 91 mL/min Normal >60 [facility] Comment on above: Result Comment: Afri can Croatian GFR Calc Performed By: #### L 500.4050 ####[facility] [address] [place], [address] GAP 6 Normal 5-15 [facility] Comment on above: Performed By: #### L 500.4050 ####[facility] [address] [place], [address] GFR/1.73 sq M.predicted among non-blacks MDRD (S/P/Bld) [Vol rate/Area] 75 mL/min/{1.73_m2} Normal >60 [facility] Comment on above: Result Comment: Non- GFR Calc Performed By: #### L 500.4050 ####[facility] [address] [place], [address] Globulin (S) [Mass/Vol] 3.1 g/dL Normal 2.2-4.2 [facility] Comment on above: Performed By: #### L 500.4050 ####[facility] [address] [place], [address] Glucose [Mass/Vol] 206 mg/dL High 74-106 [facility] Comment on above: Result Comment: Gluc ose result greater than or equal to 200 mg/dLsuggests DIABETES MELLITUS per A.D.A. criteria. Performed By: #### L 500.4050 ####[facility] [address] [place], [address] Potassium [Moles/Vol] 3.6 mmol/L Normal 3.5-5.1 [facility] Comment on above: Performed By: #### L 500.4050 ####[facility] [address] [place], [address] Sodium [Moles/Vol] 140 mmol/L Normal 136-145 [facility] Comment on above: Performed By: #### L 500.4050 ####[facility] [address] [place], [address] T PROT 6.3 g/dL Low 6.4-8.2 [facility] Comment on above: Performed By: #### L 500.4050 ####[facility] [address] [place], [address] Urea nitrogen [Mass/Vol] 17 mg/dL Normal 7-18 [facility] Comment on above: Performed By: #### L 500.4050 ####[facility] [address] [place], [address] EGD Reporton 01-04-2024 EGD Report Normal [facility] H Pylori (initial)on 024 H Pylori (initial) Normal [facility] Comment on above: Performed By: #### P H.PYLORI ####[facility] [id number] [place], [address] MR/POSTOP.ANEon 01-04-2024 MR/POSTOP.ANE Normal [facility] MR/[id number] 01-04-2024 MR/POSTOPAN2 Normal [facility] Surgery Specimen Level Aristides 01-04-2024 Surgery Specimen Level IV Normal [facility] Comment on above: Performed By: #### P SUIV ####[facility] [address] [place], [address] Type AND Screenon 01-04-2024 Ab SCREEN GEL Negative Normal [facility] Comment on above: Order Comment: RE-DR CARUSO Performed By: #### B TS ####[facility] [address] [place], [address] ABO and Rh group Nom (Bld) Blood group O Rh(D) positive Normal [facility] Comment on above: Order Comment: RE-DR CARUSO Performed By: #### B TS ####[facility] [address] [place], [address] Basic Metabolic Profile (BMP )on 01-03-2024 BUN/CRE 25.8 RATIO High 10-20 [facility] Comment on above: Performed By: #### L 100.0100, L500.2500 ####[facility] [address] [place], [address] CA,Total 8.5 mg/dL Normal 8.5-10.1 [facility] Comment on above: Performed By: #### L 100.0100, L500.2500 ####[facility] [address] [place], [address] Chloride [Moles/Vol] 109 mmol/L High 98-107 [facility] Comment on above: Performed By: #### L 100.0100, L500.2500 ####[facility] [address] [place], [address] CO2 [Moles/Vol] 25.0 mmol/L Normal 21.0-32.0 [facility] Comment on above: Performed By: #### L 100.0100, L500.2500 ####[facility] [address] [place], [address] Creatinine [Mass/Vol] 0.85 mg/dL Normal 0.55-1.02 [facility] Comment on above: Result Comment: The validity of the calculated GFR GFRAA in patients over70 years has not been determined. Clinical correlation isessential. Performed By: #### L 100.0100, L500.2500 ####[facility] [address] [place], [address] ECRCL 46.47 ml/min Normal [facility] Comment on above: Performed By: #### L 100.0100, L500.2500 ####[facility] [address] [place], [address] EST GFR - AA 85 mL/min Normal >60 [facility] Comment on above: Result Comment: Afri can Croatian GFR Calc Performed By: #### L 100.0100, L500.2500 ####[facility] [address] [place], [address] GAP 7 Normal 5-15 [facility] Comment on above: Performed By: #### L 100.0100, L500.2500 ####[facility] [address] [place], [address] GFR/1.73 sq M.predicted among non-blacks MDRD (S/P/Bld) [Vol rate/Area] 70 mL/min/{1.73_m2} Normal >60 [facility] Comment on above: Result Comment: Non- GFR Calc Performed By: #### L 100.0100, L500.2500 ####[facility] [address] [place], [address] Glucose [Mass/Vol] 243 mg/dL High 74-106 [facility] Comment on above: Result Comment: Gluc ose result greater than or equal to 200 mg/dLsuggests DIABETES MELLITUS per A.D.A. criteria. Performed By: #### L 100.0100, L500.2500 ####[facility] [address] [place], [address] Potassium [Moles/Vol] 3.2 mmol/L Low 3.5-5.1 [facility] Comment on above: Performed By: #### L 100.0100, L500.2500 ####[facility] [address] [place], [address] Sodium [Moles/Vol] 141 mmol/L Normal 136-145 [facility] Comment on above: Performed By: #### L 100.0100, L500.2500 ####[facility] [address] [place], [address] Urea nitrogen [Mass/Vol] 22 mg/dL High 7-18 [facility] Comment on above: Performed By: #### L 100.0100, L500.2500 ####[facility] [address] [place], [address] Bedside Glucoseon 01-03-2024 FINGERSTICK GLU 179 mg/dL High 74-106 [facility] Comment on above: Result Comment: GERALDO GEMENT OF PATIENT CARE PER NURSING PROTOCOL Performed By: #### L 501.080 ####[facility] [address] [place], [address] FINGERSTICK GLU 263 mg/dL High 74-106 [facility] Comment on above: Result Comment: GERALDO GEMENT OF PATIENT CARE PER NURSING PROTOCOL Performed By: #### L 501.080 ####[facility] [address] [place], [address] FINGERSTICK GLU 200 mg/dL High 74-106 [facility] Comment on above: Result Comment: GERALDO GEMENT OF PATIENT CARE PER NURSING PROTOCOL Performed By: #### L 501.080 ####[facility] [address] [place], [address] CBC W/Diff, Automatedon 11- Absolute Lymph 2.06 X10 3/uL Normal 0.83-4.51 [facility] Comment on above: Performed By: #### L 100.0100, L500.2500 ####[facility] [address] [place], [address] Absolute Neut 5.7 X10 3/uL Normal 2.0-7.7 [facility] Comment on above: Performed By: #### L 100.0100, L500.2500 ####[facility] [address] [place], [address] Basophils/100 WBC (Bld) 0.1 % Normal 0-1 [facility] Comment on above: Performed By: #### L 100.0100, L500.2500 ####[facility] [address] [place], [address] Eosinophils/100 WBC (Bld) 2.1 % Normal 0-5 [facility] Comment on above: Performed By: #### L 100.0100, L500.2500 ####[facility] [address] [place], [address] Erythrocyte distribution width (RBC) [Ratio] 12.9 % Normal 11.6-14.6 [facility] Comment on above: Performed By: #### L 100.0100, L500.2500 ####[facility] [address] [place], [address] Hematocrit (Bld) [Volume fraction] 35.5 % Low 37-47 [facility] Comment on above: Performed By: #### L 100.0100, L500.2500 ####[facility] [address] [place], [address] Hemoglobin (Bld) [Mass/Vol] 11.0 g/dL Low 12.0-15.0 [facility] Comment on above: Performed By: #### L 100.0100, L500.2500 ####[facility] [address] [place], [address] IG% 0.400 Normal 0.0-0.9 [facility] Comment on above: Result Comment: IG% - Immature Granulocytes (promyelocytes, myelocytes andmetamyelocytes) > 1% indicates that a LEFT SHIFT is Present. Performed By: #### L 100.0100, L500.2500 ####[facility] [address] [place], [address] Lymphocytes/100 WBC (Bld) 24.1 % Normal 19-41 [facility] Comment on above: Performed By: #### L 100.0100, L500.2500 ####[facility] [address] [place], [address] MCH (RBC) [Entitic mass] 28.9 pg Normal 27.0-32.0 [facility] Comment on above: Performed By: #### L 100.0100, L500.2500 ####[facility] [address] [place], [address] MCHC (RBC) [Mass/Vol] 31.0 g/dL Low 32-36 [facility] Comment on above: Performed By: #### L 100.0100, L500.2500 ####[facility] [address] [place], [address] MCV (RBC) [Entitic vol] 93.4 fL Normal 81-99 [facility] Comment on above: Performed By: #### L 100.0100, L500.2500 ####[facility] [address] [place], [address] Monocytes/100 WBC (Bld) 6.7 % Normal 0-10 [facility] Comment on above: Performed By: #### L 100.0100, L500.2500 ####[facility] [address] [place], [address] Neutrophils/100 WBC (Bld) 66.6 % Normal 47-70 [facility] Comment on above: Performed By: #### L 100.0100, L500.2500 ####[facility] [address] [place], [address] Nucleated RBC (Bld) [#/Vol] 0 10*3/uL Normal 0-5 [facility] Comment on above: Performed By: #### L 100.0100, L500.2500 ####[facility] [address] [place], [address] Platelet mean volume (Bld) [Entitic vol] 9.9 fL Normal 6.2-12.0 [facility] Comment on above: Performed By: #### L 100.0100, L500.2500 ####[facility] [address] [place], [address] Platelets (Bld) [#/Vol] 221 10*3/uL Normal 150-450 [facility] Comment on above: Performed By: #### L 100.0100, L500.2500 ####[facility] [address] [place], [address] RBC (Bld) [#/Vol] 3.80 10*6/uL Low 4.2-5.4 [facility] Comment on above: Performed By: #### L 100.0100, L500.2500 ####[facility] [address] [place], [address] RDW SD 44.0 fl High 35.1-43.9 [facility] Comment on above: Performed By: #### L 100.0100, L500.2500 ####[facility] [address] [place], [address] WBC (Bld) [#/Vol] 8.6 10*3/uL Normal 4.4-11.0 [facility] Comment on above: Performed By: #### L 100.0100, L500.2500 ####[facility] [address] [place], [address] Lipaseon 01-03-2024 Lipase [Catalytic activity/Vol] 30 U/L Normal 13-75 [facility] Comment on above: Order Comment: Comme nts: Add onto previous labs if possible Result Comment: La aguilar note:LIPASE revised reference range effective 22.New Lipase methodology. Expected to produce lower valuesthan the previous assay method.NEW Reference Range: 13 - 75 U/L Performed By: #### L 501.2450 ####[facility] [address] [place], [address] Lipase measurementOrdered By : Zahra Palacio on 01-03-2024 Lipase measurement 30 U/L 13-75 [facility] Basic Metabolic Profile (BMP )on 01-02-2024 BUN/CRE 30.7 RATIO High - [facility] Comment on above: Performed By: #### L 500.2500, L100.0100 ####[facility] [address] [place], [address] CA,Total 9.0 mg/dL Normal 8.5-10.1 [facility] Comment on above: Performed By: #### L 500.2500, L100.0100 ####[facility] [address] [place], [address] Chloride [Moles/Vol] 111 mmol/L High 98-107 [facility] Comment on above: Performed By: #### L 500.2500, L100.0100 ####[facility] [address] [place], [address] CO2 [Moles/Vol] 25.0 mmol/L Normal 21.0-32.0 [facility] Comment on above: Performed By: #### L 500.2500, L100.0100 ####[facility] [address] [place], [address] Creatinine [Mass/Vol] 1.01 mg/dL Normal 0.55-1.02 [facility] Comment on above: Result Comment: The validity of the calculated GFR GFRAA in patients over70 years has not been determined. Clinical correlation isessential. Performed By: #### L 500.2500, L100.0100 ####[facility] [address] [place], [address] ECRCL 39.19 ml/min Normal [facility] Comment on above: Performed By: #### L 500.2500, L100.0100 ####[facility] [address] [place], [address] EST GFR - AA 70 mL/min Normal >60 [facility] Comment on above: Result Comment: Afri can Croatian GFR Calc Performed By: #### L 500.2500, L100.0100 ####[facility] [address] [place], [address] GAP 6 Normal 5-15 [facility] Comment on above: Performed By: #### L 500.2500, L100.0100 ####[facility] [address] [place], [address] GFR/1.73 sq M.predicted among non-blacks MDRD (S/P/Bld) [Vol rate/Area] 58 mL/min/{1.73_m2} Low >60 [facility] Comment on above: Result Comment: Non- GFR Calc Performed By: #### L 500.2500, L100.0100 ####[facility] [address] [place], [address] Glucose [Mass/Vol] 181 mg/dL High 74-106 [facility] Comment on above: Result Comment: Fast ing Glucose result greater than or equal to 126 mg/dLsuggests DIABETES MELLITUS per A.D.A. criteria. Performed By: #### L 500.2500, L100.0100 ####[facility] [address] [place], [address] Potassium [Moles/Vol] 4.6 mmol/L Normal 3.5-5.1 [facility] Comment on above: Performed By: #### L 500.2500, L100.0100 ####[facility] [address] [place], [address] Sodium [Moles/Vol] 142 mmol/L Normal 136-145 [facility] Comment on above: Performed By: #### L 500.2500, L100.0100 ####[facility] [address] [place], [address] Urea nitrogen [Mass/Vol] 31 mg/dL High 7-18 [facility] Comment on above: Performed By: #### L 500.2500, L100.0100 ####[facility] [address] [place], [address] Bedside Glucoseon 01-02-2024 FINGERSTICK GLU 236 mg/dL High 74-106 [facility] Comment on above: Result Comment: GERALDO GEMENT OF PATIENT CARE PER NURSING PROTOCOL Performed By: #### L 501.080 ####[facility] [address] [place], [address] FINGERSTICK GLU 177 mg/dL High 74-106 [facility] Comment on above: Result Comment: GERALDO GEMENT OF PATIENT CARE PER NURSING PROTOCOL Performed By: #### L 501.080 ####[facility] [address] [place], [address] FINGERSTICK GLU 166 mg/dL High 74-106 [facility] Comment on above: Result Comment: GERALDO GEMENT OF PATIENT CARE PER NURSING PROTOCOL Performed By: #### L 501.080 ####[facility] [address] [place], [address] FINGERSTICK GLU 225 mg/dL High 74-106 [facility] Comment on above: Result Comment: GERALDO GEMENT OF PATIENT CARE PER NURSING PROTOCOL Performed By: #### L 501.080 ####[facility] [address] [place], [address] CBC W/Diff, Automatedon 11-2 PATH REV Reviewed Normal [facility] Comment on above: Result Comment: ADDIE MESA MD 01/02/2024 AMENDED REPORT 01/02/24 0831 PATH REV previously reported as: June Performed By: #### L 500.4050, L100.0100, L501.9985, L500.4100, L501.9520 ####[facility] [address] [place], [address] Absolute Lymph 2.31 X10 3/uL Normal 0.83-4.51 [facility] Comment on above: Performed By: #### L 500.2500, L100.0100 ####[facility] [address] [place], [address] Absolute Neut 8.4 X10 3/uL High 2.0-7.7 [facility] Comment on above: Performed By: #### L 500.2500, L100.0100 ####[facility] [address] [place], [address] Basophils/100 WBC (Bld) 0.1 % Normal 0-1 [facility] Comment on above: Performed By: #### L 500.2500, L100.0100 ####[facility] [address] [place], [address] Eosinophils/100 WBC (Bld) 1.0 % Normal 0-5 [facility] Comment on above: Performed By: #### L 500.2500, L100.0100 ####[facility] [address] [place], [address] Erythrocyte distribution width (RBC) [Ratio] 13.2 % Normal 11.6-14.6 [facility] Comment on above: Performed By: #### L 500.2500, L100.0100 ####[facility] [address] [place], [address] Hematocrit (Bld) [Volume fraction] 39.7 % Normal 37-47 [facility] Comment on above: Performed By: #### L 500.2500, L100.0100 ####[facility] [address] [place], [address] Hemoglobin (Bld) [Mass/Vol] 12.2 g/dL Normal 12.0-15.0 [facility] Comment on above: Performed By: #### L 500.2500, L100.0100 ####[facility] [address] [place], [address] IG% 0.400 Normal 0.0-0.9 [facility] Comment on above: Result Comment: IG% - Immature Granulocytes (promyelocytes, myelocytes andmetamyelocytes) > 1% indicates that a LEFT SHIFT is Present. Performed By: #### L 500.2500, L100.0100 ####[facility] [address] [place], [address] Lymphocytes/100 WBC (Bld) 19.3 % Normal 19-41 [facility] Comment on above: Performed By: #### L 500.2500, L100.0100 ####[facility] [address] [place], [address] MCH (RBC) [Entitic mass] 29.4 pg Normal 27.0-32.0 [facility] Comment on above: Performed By: #### L 500.2500, L100.0100 ####[facility] [address] [place], [address] MCHC (RBC) [Mass/Vol] 30.7 g/dL Low 32-36 [facility] Comment on above: Performed By: #### L 500.2500, L100.0100 ####[facility] [address] [place], [address] MCV (RBC) [Entitic vol] 95.7 fL Normal 81-99 [facility] Comment on above: Performed By: #### L 500.2500, L100.0100 ####[facility] [address] [place], [address] Monocytes/100 WBC (Bld) 8.5 % Normal 0-10 [facility] Comment on above: Performed By: #### L 500.2500, L100.0100 ####[facility] [address] [place], [address] Neutrophils/100 WBC (Bld) 70.7 % High 47-70 [facility] Comment on above: Performed By: #### L 500.2500, L100.0100 ####[facility] [address] [place], [address] Nucleated RBC (Bld) [#/Vol] 0 10*3/uL Normal 0-5 [facility] Comment on above: Performed By: #### L 500.2500, L100.0100 ####[facility] [address] [place], [address] Platelet mean volume (Bld) [Entitic vol] 9.6 fL Normal 6.2-12.0 [facility] Comment on above: Performed By: #### L 500.2500, L100.0100 ####[facility] [address] [place], [address] Platelets (Bld) [#/Vol] 193 10*3/uL Normal 150-450 [facility] Comment on above: Performed By: #### L 500.2500, L100.0100 ####[facility] [address] [place], [address] RBC (Bld) [#/Vol] 4.15 10*6/uL Low 4.2-5.4 [facility] Comment on above: Performed By: #### L 500.2500, L100.0100 ####[facility] [address] [place], [address] RDW SD 46.1 fl High 35.1-43.9 [facility] Comment on above: Performed By: #### L 500.2500, L100.0100 ####[facility] [address] [place], [address] WBC (Bld) [#/Vol] 11.9 10*3/uL High 4.4-11.0 [facility] Comment on above: Performed By: #### L 500.2500, L100.0100 ####[facility] [address] [place], [address] CDIFF (PCR)on 01-02-2024 CDIFF Normal [facility] Comment on above: Performed By: #### M 100.6796, M100.6795 ####[facility] [address] [place], [address] Clostridium Diff Toxin/Agon 01-02-2024 CDIFF (EIA) Normal [facility] Comment on above: Performed By: #### M 100.6796, M100.6795 ####[facility] [address] [place], [address] ENTERIC PATHOGEN PANEL STOOL on 01-02-2024 EP PANEL CAMPYLOBACTER Not Detected Norovirus Not Detected Rotavirus Not Detected Salmonella Not Detected Shiga Toxin Not Detected Shigella sp. Not Detected VIBRIO Not Detected Yersinia Not Detected Normal [facility] Comment on above: Performed By: #### M 100.637 ####[facility] [address] [place], [address] Basic Metabolic Profile (BMP )on 01-01-2024 BUN/CRE 30.3 RATIO High 10-20 [facility] Comment on above: Performed By: #### L 500.2500, L100.0100 ####[facility] [address] [place], [address] CA,Total 8.9 mg/dL Normal 8.5-10.1 [facility] Comment on above: Performed By: #### L 500.2500, L100.0100 ####[facility] [address] [place], [address] Chloride [Moles/Vol] 112 mmol/L High 98-107 [facility] Comment on above: Performed By: #### L 500.2500, L100.0100 ####[facility] [address] [place], [address] CO2 [Moles/Vol] 25.0 mmol/L Normal 21.0-32.0 [facility] Comment on above: Performed By: #### L 500.2500, L100.0100 ####[facility] [address] [place], [address] Creatinine [Mass/Vol] 1.32 mg/dL High 0.55-1.02 [facility] Comment on above: Result Comment: The validity of the calculated GFR GFRAA in patients over70 years has not been determined. Clinical correlation isessential. Performed By: #### L 500.2500, L100.0100 ####[facility] [address] [place], [address] ECRCL 29.80 ml/min Normal [facility] Comment on above: Performed By: #### L 500.2500, L100.0100 ####[facility] [address] [place], [address] EST GFR - AA 51 mL/min Low >60 [facility] Comment on above: Result Comment: Afri can Croatian GFR Calc Performed By: #### L 500.2500, L100.0100 ####[facility] [address] [place], [address] GAP 4 Low 5-15 [facility] Comment on above: Performed By: #### L 500.2500, L100.0100 ####[facility] [address] [place], [address] GFR/1.73 sq M.predicted among non-blacks MDRD (S/P/Bld) [Vol rate/Area] 42 mL/min/{1.73_m2} Low >60 [facility] Comment on above: Result Comment: Non- GFR Calc Performed By: #### L 500.2500, L100.0100 ####[facility] [address] [place], [address] Glucose [Mass/Vol] 227 mg/dL High 74-106 [facility] Comment on above: Result Comment: Gluc ose result greater than or equal to 200 mg/dLsuggests DIABETES MELLITUS per A.D.A. criteria. Performed By: #### L 500.2500, L100.0100 ####[facility] [address] [place], [address] Potassium [Moles/Vol] 4.3 mmol/L Normal 3.5-5.1 [facility] Comment on above: Performed By: #### L 500.2500, L100.0100 ####[facility] [address] [place], [address] Sodium [Moles/Vol] 141 mmol/L Normal 136-145 [facility] Comment on above: Performed By: #### L 500.2500, L100.0100 ####[facility] [address] [place], [address] Urea nitrogen [Mass/Vol] 40 mg/dL High 7-18 [facility] Comment on above: Performed By: #### L 500.2500, L100.0100 ####[facility] [address] [place], [address] Bedside Glucoseon 01-01-2024 FINGERSTICK GLU 187 mg/dL High 74-106 [facility] Comment on above: Result Comment: GERALDO EBGUM OF PATIENT CARE PER NURSING PROTOCOL Performed By: #### L 501.080 ####[facility] [address] [place], [address] FINGERSTICK GLU 186 mg/dL High 74-106 [facility] Comment on above: Result Comment: GERALDO GEMENT OF PATIENT CARE PER NURSING PROTOCOL Performed By: #### L 501.080 ####[facility] [address] [place], [address] FINGERSTICK GLU 213 mg/dL High 74-106 [facility] Comment on above: Result Comment: GERALDO GEMENT OF PATIENT CARE PER NURSING PROTOCOL Performed By: #### L 501.080 ####[facility] [id number] [place], [address] CBC W/Diff, Automatedon 11 Absolute Lymph 1.65 X10 3/uL Normal 0.83-4.51 [facility] Comment on above: Performed By: #### L 500.2500, L100.0100 ####[facility] [address] [place], [address] Absolute Neut 14.5 X10 3/uL High 2.0-7.7 [facility] Comment on above: Performed By: #### L 500.2500, L100.0100 ####[facility] [address] [place], [address] Basophils/100 WBC (Bld) 0.1 % Normal 0-1 [facility] Comment on above: Performed By: #### L 500.2500, L100.0100 ####[facility] [address] [place], [address] Eosinophils/100 WBC (Bld) 0.3 % Normal 0-5 [facility] Comment on above: Performed By: #### L 500.2500, L100.0100 ####[facility] [address] [place], [address] Erythrocyte distribution width (RBC) [Ratio] 13.3 % Normal 11.6-14.6 [facility] Comment on above: Performed By: #### L 500.2500, L100.0100 ####[facility] [address] [place], [address] Hematocrit (Bld) [Volume fraction] 42.1 % Normal 37-47 [facility] Comment on above: Performed By: #### L 500.2500, L100.0100 ####[facility] [address] [place], [address] Hemoglobin (Bld) [Mass/Vol] 13.2 g/dL Normal 12.0-15.0 [facility] Comment on above: Performed By: #### L 500.2500, L100.0100 ####[facility] [address] [place], [address] IG% 0.500 Normal 0.0-0.9 [facility] Comment on above: Result Comment: IG% - Immature Granulocytes (promyelocytes, myelocytes andmetamyelocytes) > 1% indicates that a LEFT SHIFT is Present. Performed By: #### L 500.2500, L100.0100 ####[facility] [address] [place], [address] Lymphocytes/100 WBC (Bld) 9.6 % Low 19-41 [facility] Comment on above: Performed By: #### L 500.2500, L100.0100 ####[facility] [address] [place], [address] MCH (RBC) [Entitic mass] 29.1 pg Normal 27.0-32.0 [facility] Comment on above: Performed By: #### L 500.2500, L100.0100 ####[facility] [address] [place], [address] MCHC (RBC) [Mass/Vol] 31.4 g/dL Low 32-36 [facility] Comment on above: Performed By: #### L 500.2500, L100.0100 ####[facility] [address] [place], [address] MCV (RBC) [Entitic vol] 92.9 fL Normal 81-99 [facility] Comment on above: Performed By: #### L 500.2500, L100.0100 ####[facility] [address] [place], [address] Monocytes/100 WBC (Bld) 5.6 % Normal 0-10 [facility] Comment on above: Performed By: #### L 500.2500, L100.0100 ####[facility] [address] [place], [address] Neutrophils/100 WBC (Bld) 83.9 % High 47-70 [facility] Comment on above: Performed By: #### L 500.2500, L100.0100 ####[facility] [address] [place], [address] Nucleated RBC (Bld) [#/Vol] 0 10*3/uL Normal 0-5 [facility] Comment on above: Performed By: #### L 500.2500, L100.0100 ####[facility] [address] [place], [address] Platelet mean volume (Bld) [Entitic vol] 9.6 fL Normal 6.2-12.0 [facility] Comment on above: Performed By: #### L 500.2500, L100.0100 ####[facility] [address] [place], [address] Platelets (Bld) [#/Vol] 292 10*3/uL Normal 150-450 [facility] Comment on above: Performed By: #### L 500.2500, L100.0100 ####[facility] [address] [place], [address] RBC (Bld) [#/Vol] 4.53 10*6/uL Normal 4.2-5.4 [facility] Comment on above: Performed By: #### L 500.2500, L100.0100 ####[facility] [address] [place], [address] RDW SD 45.4 fl High 35.1-43.9 [facility] Comment on above: Performed By: #### L 500.2500, L100.0100 ####[facility] [address] [place], [address] WBC (Bld) [#/Vol] 17.3 10*3/uL High 4.4-11.0 [facility] Comment on above: Performed By: #### L 500.2500, L100.0100 ####[facility] [address] [place], [address] Urine Cultureon 01-01-2024 URC Normal [facility] Comment on above: Performed By: #### M 100.2200, M100.678 ####[facility] [address] [place], [address] Bedside Glucoseon 12-31-2023 FINGERSTICK GLU 205 mg/dL High [address] [place] [address] Comment on above: Result Comment: GERALDO GEMENT OF PATIENT CARE PER NURSING PROTOCOL Performed By: #### L 501.080 ####[facility] [address] [place], [address] FINGERSTICK GLU 191 mg/dL High [address] [place] [address] Comment on above: Result Comment: GERALDO GEMENT OF PATIENT CARE PER NURSING PROTOCOL Performed By: #### L 501.080 ####[facility] [address] [place], [address] FINGERSTICK GLU 244 mg/dL High [address] [place] [address] Comment on above: Result Comment: GERALDO GEMENT OF PATIENT CARE PER NURSING PROTOCOL Performed By: #### L 501.080 ####[facility] [address] [place], [address] FINGERSTICK GLU 264 mg/dL High 74-106 [facility] Comment on above: Result Comment: GERALDO GEMENT OF PATIENT CARE PER NURSING PROTOCOL Performed By: #### L 501.080 ####[facility] [address] [place], [address] FINGERSTICK GLU 300 mg/dL High 74-106 [facility] Comment on above: Result Comment: GERALDO GEMENT OF PATIENT CARE PER NURSING PROTOCOL Performed By: #### L 501.080 ####[facility] [address] [place], [address] Chest 1 View (Portable)on Chest 1 View (Portable) Normal [facility] Cholesterol [Mass/Vol]Ordere d By: Kanwal Aguilar on 12-31-2023 Serum or plasma cholesterol measurement (mass/volume) 161 mg/dL <200 [facility] Comprehensive Metabolic Prof ilon 12-31-2023 Albumin [Mass/Vol] 3.1 g/dL Low 3.2-5.0 [facility] Comment on above: Performed By: #### L 500.4050, L100.0100, L501.9985, L500.4100, L501.9520 ####[facility] [address] [place], [address] Albumin/Globulin [Mass ratio] 0.9 {ratio} Normal 0.9-2.4 [facility] Comment on above: Performed By: #### L 500.4050, L100.0100, L501.9985, L500.4100, L501.9520 ####[facility] [address] [place], [address] ALK P 73 U/L Normal 45-117 [facility] Comment on above: Performed By: #### L 500.4050, L100.0100, L501.9985, L500.4100, L501.9520 ####[facility] [address] [place], [address] ALT [Catalytic activity/Vol] 31 U/L Normal 13-56 [facility] Comment on above: Performed By: #### L 500.4050, L100.0100, L501.9985, L500.4100, L501.9520 ####[facility] [address] [place], [address] AST [Catalytic activity/Vol] 29 U/L Normal 15-37 [facility] Comment on above: Performed By: #### L 500.4050, L100.0100, L501.9985, L500.4100, L501.9520 ####[facility] [address] [place], [address] Bilirubin [Mass/Vol] 0.40 mg/dL Normal 0.20-1.00 [facility] Comment on above: Result Comment: For patients on eltrombopag therapy, use of Dimension [place] TBIL is not recommended. Performed By: #### L 500.4050, L100.0100, L501.9985, L500.4100, L501.9520 ####[facility] [address] [place], [address] BUN/CRE 22.3 RATIO High 10-20 [facility] Comment on above: Performed By: #### L 500.4050, L100.0100, L501.9985, L500.4100, L501.9520 ####[facility] [address] [place], [address] CA,Total 7.9 mg/dL Low 8.5-10.1 [facility] Comment on above: Performed By: #### L 500.4050, L100.0100, L501.9985, L500.4100, L501.9520 ####[facility] [address] [place], [address] Chloride [Moles/Vol] 113 mmol/L High 98-107 [facility] Comment on above: Performed By: #### L 500.4050, L100.0100, L501.9985, L500.4100, L501.9520 ####[facility] [address] [place], [address] CO2 [Moles/Vol] 20.0 mmol/L Low 21.0-32.0 [facility] Comment on above: Performed By: #### L 500.4050, L100.0100, L501.9985, L500.4100, L501.9520 ####[facility] [address] [place], [address] Creatinine [Mass/Vol] 1.66 mg/dL High 0.55-1.02 [facility] Comment on above: Result Comment: The validity of the calculated GFR GFRAA in patients over70 years has not been determined. Clinical correlation isessential. Performed By: #### L 500.4050, L100.0100, L501.9985, L500.4100, L501.9520 ####[facility] [address] [place], [address] ECRCL 23.05 ml/min Normal [facility] Comment on above: Performed By: #### L 500.4050, L100.0100, L501.9985, L500.4100, L501.9520 ####[facility] [address] [place], [address] EST GFR - AA 39 mL/min Low >60 [facility] Comment on above: Result Comment: Afri can Croatian GFR Calc Performed By: #### L 500.4050, L100.0100, L501.9985, L500.4100, L501.9520 ####[facility] [address] [place], [address] GAP 8 Normal 5-15 [facility] Comment on above: Performed By: #### L 500.4050, L100.0100, L501.9985, L500.4100, L501.9520 ####[facility] [address] [place], [address] GFR/1.73 sq M.predicted among non-blacks MDRD (S/P/Bld) [Vol rate/Area] 32 mL/min/{1.73_m2} Low >60 [facility] Comment on above: Result Comment: Non- GFR Calc Performed By: #### L 500.4050, L100.0100, L501.9985, L500.4100, L501.9520 ####[facility] [address] [place], [address] Globulin (S) [Mass/Vol] 3.6 g/dL Normal 2.2-4.2 [facility] Comment on above: Performed By: #### L 500.4050, L100.0100, L501.9985, L500.4100, L501.9520 ####[facility] [address] [place], [address] Glucose [Mass/Vol] 305 mg/dL High 74-106 [facility] Comment on above: Result Comment: Gluc ose result greater than or equal to 200 mg/dLsuggests DIABETES MELLITUS per A.D.A. criteria. Performed By: #### L 500.4050, L100.0100, L501.9985, L500.4100, L501.9520 ####[facility] [address] [place], [address] Potassium [Moles/Vol] 4.0 mmol/L Normal 3.5-5.1 [facility] Comment on above: Performed By: #### L 500.4050, L100.0100, L501.9985, L500.4100, L501.9520 ####[facility] [address] [place], [address] Sodium [Moles/Vol] 140 mmol/L Normal 136-145 [facility] Comment on above: Performed By: #### L 500.4050, L100.0100, L501.9985, L500.4100, L501.9520 ####[facility] [address] [place], [address] T PROT 6.7 g/dL Normal 6.4-8.2 [facility] Comment on above: Performed By: #### L 500.4050, L100.0100, L501.9985, L500.4100, L501.9520 ####[facility] [address] [place], [address] Urea nitrogen [Mass/Vol] 37 mg/dL High 08-29 [facility] Comment on above: Performed By: #### L 500.4050, L100.0100, L501.9985, L500.4100, L501.9520 ####[facility] [address] [place], [address] Consultation - Cardiologyon 12-31-2023 Consultation - Cardiology Normal [facility] HH, Hemoglobin AND Hematocri ton 12-31-2023 HCT Normal 37-47 [facility] Comment on above: Result Comment: @GAL E RAS SAID IT WAS OK TO CANCEL@- DREX 12/31/232204 Performed By: #### L 100.0600 ####[facility] [address] [place], [address] HGB Normal 12.0-15.0 [facility] Comment on above: Result Comment: @GAL E RAS SAID IT WAS OK TO CANCEL@- DREX 12/31/232204 Performed By: #### L 100.0600 ####[facility] [address] [place], [address] HbA1c (Bld) [Mass fraction]O rdered By: Kanwal Aguilar on 12-31-2023 Hemoglobin A1c percentage 5.5 % 3.8-5.6 [facility] Hemoglobin A1con 12-31-2023 HbA1c (Bld) [Mass fraction] 5.5 % Normal 3.8-5.6 [facility] Comment on above: Result Comment: Norm al < 5.7 % Prediabetic 5.7 - 6.4 % Diabetic >or= 6.5 % Please note range changes. Performed By: #### L 500.4050, L100.0100, L501.9985, L500.4100, L501.9520 ####[facility] [address] [place], [address] High density lipoprotein (HD L) measurementOrdered By: Kanwal Aguilar on 12-31-2023 High density lipoprotein (HDL) measurement 69 mg/dL >40 [facility] L501.4020on 12-31-2023 TROPONIN-I HS 3067 pg/mL Invalid Interpretation Code 3.0-54.0 [facility] Comment on above: Order Comment: 'TROP ' Serial specimen #1, #2 or #3: 3 Result Comment: Crit ical Result(s) Called at: 01:14:27 12/31/2023 by:Wilfrid ferrer. Results read back by same. Please Note: New Test Units and Gender Specific Reference Ranges. For more information see Policy Stat Procedure [place] High Sensitivity Troponin (TNIH) and attachments. Performed By: #### L 501.2571 ####[facility] [address] [place], [place], [address] Lactic Acidon 12-31-2023 Lactate [Moles/Vol] 3.2 mmol/L Invalid Interpretation Code 0.4-1.9 [facility] Comment on above: Result Comment: Crit ical Result(s) Called at: 00:14:59 12/31/2023 by:Wilfrid ferrer. Results read back by same. Performed By: #### L 503.6005 ####[facility] [address] [place], [place], [address] Legionella Antigen Urineon 1 03-01-2023 LEGU Normal [facility] Comment on above: Performed By: #### M 300.4500 ####[facility] [address] [place], [address] Lipid Profileon 12-31-2023 Cholesterol [Mass/Vol] 161 mg/dL Normal 200 [facility] Comment on above: Result Comment: <200 mg/dL Desirable 200-240 mg/dL Borderline >240 mg/dL High Risk Performed By: #### L 500.4050, L100.0100, L501.9985, L500.4100, L501.9520 ####[facility] [address] [place], [address] Cholesterol in HDL [Mass/Vol] 69 mg/dL Normal [facility] Comment on above: Result Comment: The drugs N-Acetylcysteine and Metamizole may falselydepress this assay. Reference Range HDL <40 mg/dL Low HDL Cholesterol HDL >or= 60 mg/dL High HDL Cholesterol Performed By: #### L 500.4050, L100.0100, L501.9985, L500.4100, L501.9520 ####[facility] [address] [place], [address] Cholesterol in LDL [Mass/Vol] 68 mg/dL Normal 0-130 [facility] Comment on above: Performed By: #### L 500.4050, L100.0100, L501.9985, L500.4100, L501.9520 ####[facility] [address] [place], [address] Cholesterol in VLDL [Mass/Vol] 24 mg/dL Normal 5-40 [facility] Comment on above: Performed By: #### L 500.4050, L100.0100, L501.9985, L500.4100, L501.9520 ####[facility] [address] [place], [address] Triglyceride [Mass/Vol] 118 mg/dL Normal [facility] Comment on above: Result Comment: The drugs N-Acetylcysteine and Metamizole may falselydepress this assay.Serum Triglycerides Reference Interval Normal <150 mg/dL Borderline high 150 - 199 mg/dL High 200 - 499 mg/dL Very High > or = 500 mg/dL Performed By: #### L 500.4050, L100.0100, L501.9985, L500.4100, L501.9520 ####[facility] [address] [place], [address] Low density lipoprotein (LDL ) cholesterol measurementOrdered By: on 12-31-2023 Low density lipoprotein (LDL) cholesterol measurement 68 mg/dL 0-130 [facility] M8200.1000on 12-31-2023 M8200.1000 Normal Reference Ran ge = Negative MRSA DNA Nose Ql MARILEE+probe GeneXpert Instrument, PCR method MRSA PCR MRSA NEGATIVE Normal [facility] Comment on above: Performed By: #### M 8200.1000 ####[facility] [address] [place], [address] MR/CON.PCM.GIon 12-31-2023 MR/CON.PCM.GI Normal [facility] Magnesiumon 12-31-2023 Magnesium [Mass/Vol] 3.5 mg/dL High 1.6-2.6 [facility] Comment on above: Result Comment: Slig ht Hemolysis, Result may be falsely increased. Performed By: #### L 501.5200 ####[facility] [address] [facility] [place], [address] Magnesium measurementOrdered By: on 12-31-2023 Magnesium measurement 3.5 mg/dL High 1.6-2.6 [facility] Manual differential comment Minesh (Bld) [Interp]Ordered By: on 12-31-2023 Blood manual differential comment interpretation (narrative result) SCANNED [facility] Ovalocyte detectionOrdered B y: on 12-31-2023 Ovalocyte detection 1+ [facility] Pathologist review Minesh (Unsp spec) [Interp]Ordered By: Kanwal Aguilar on 12-31-2023 Review by pathologist Reviewed [facility] Platelets LM Ql (Bld)Ordered By: Kanwal Aguilar on 12-31-2023 Platelet estimate ADEQUATE ADEQ [facility] RESPIRATORY PANEL MOLECULARo n 12-31-2023 RP PANEL Normal [facility] Comment on above: Performed By: #### M 100.638 ####[facility] [address] [place], [place], [address] TSH QnOrdered By: Kanwal Okeefe te on 12-31-2023 Serum or plasma thyroid stimulating hormone (TSH) measurement (units/volume) 2.700 uIU/mL 0.358-3.740 [facility] Thyroid Stim Hormone (TSH)on 12-31-2023 TSH 2.700 uIU/mL Normal 0.358-3.740 [facility] Comment on above: Performed By: #### L 500.4050, L100.0100, L501.9985, L500.4100, L501.9520 ####[facility] [address] [place], [place], [address] Triglycerides measurementOrd ered By: Kanwal Aguilar on 12-31-2023 Triglycerides measurement 118 mg/dL <199 [facility] Troponin IOrdered By: Kanwal Aguilar on 12-31-2023 Troponin I 3067 pg/mL High 3.0-54.0 [facility] Very low density lipoprotein (VLDL) cholesterol measurementOrdered By: Kanwal Aguilar on 12-31-2023 Very low density lipoprotein (VLDL) cholesterol measurement 24 mg/dL 5-40 [facility] 12 Lead EKGon 12-30-2023 12 Lead EKG Normal [facility] 12 Lead EKG Normal [facility] BNP (brain natriuretic pepti de measurement)Ordered By: Yifan Zepeda on 12-30-2023 BNP (brain natriuretic peptide measurement) 3619.4 pg/mL High 0-100 [facility] BNP,B-Type NATRIURETIC PEPTI Faiza 12-30-2023 Natriuretic peptide B (Bld) [Mass/Vol] 3619.4 pg/mL High 0-100 [facility] Comment on above: Performed By: #### L 503.6620 ####[facility] [address] [place], [address] Bacteria LM.HPF (Urine sed) [#/Area]Ordered By: Yifan Zepeda on 12-30-2023 Urine sediment bacteria count by microscopy (number/high power field) 4+ /hpf None Seen [facility] Bilirubin Test strip Ql (U)O rdered By: Yifan Zepeda on 12-30-2023 Urine total bilirubin detection by test strip 1 mg/dL High Negative [facility] Blood cultureOrdered By: Diana Zepeda on 12-30-2023 Blood culture No growth in 5 days. [facility] CBC W/Diff, Automatedon 12-13 Absolute Lymph 1.17 X10 3/uL Normal 0.83-4.51 [facility] Comment on above: Performed By: #### L 500.4050, BTS, L300.3900, L503.6005, L501.4020, L501.2450, L300.4310, L100.0100, M100.7900 ####[facility] [address] [place], [address] Absolute Neut 17.3 X10 3/uL High 2.0-7.7 [facility] Comment on above: Performed By: #### L 500.4050, BTS, L300.3900, L503.6005, L501.4020, L501.2450, L300.4310, L100.0100, M100.7900 ####[facility] [address] [place], [address] Basophils/100 WBC (Bld) 0.2 % Normal 0-1 [facility] Comment on above: Performed By: #### L 500.4050, BTS, L300.3900, L503.6005, L501.4020, L501.2450, L300.4310, L100.0100, M100.7900 ####[facility] [address] [place], [address] Eosinophils/100 WBC (Bld) 0.0 % Normal 0-5 [facility] Comment on above: Performed By: #### L 500.4050, BTS, L300.3900, L503.6005, L501.4020, L501.2450, L300.4310, L100.0100, M100.7900 ####[facility] [address] [place], [address] Erythrocyte distribution width (RBC) [Ratio] 12.9 % Normal 11.6-14.6 [facility] Comment on above: Performed By: #### L 500.4050, BTS, L300.3900, L503.6005, L501.4020, L501.2450, L300.4310, L100.0100, M100.7900 ####[facility] [address] [place], [address] Hematocrit (Bld) [Volume fraction] 45.1 % Normal 37-47 [facility] Comment on above: Performed By: #### L 500.4050, BTS, L300.3900, L503.6005, L501.4020, L501.2450, L300.4310, L100.0100, M100.7900 ####[facility] [address] [place], [address] Hemoglobin (Bld) [Mass/Vol] 14.8 g/dL Normal 12.0-15.0 [facility] Comment on above: Performed By: #### L 500.4050, BTS, L300.3900, L503.6005, L501.4020, L501.2450, L300.4310, L100.0100, M100.7900 ####[facility] [address] [place], [address] IG% 0.600 Normal 0.0-0.9 [facility] Comment on above: Result Comment: IG% - Immature Granulocytes (promyelocytes, myelocytes andmetamyelocytes) > 1% indicates that a LEFT SHIFT is Present. Performed By: #### L 500.4050, BTS, L300.3900, L503.6005, L501.4020, L501.2450, L300.4310, L100.0100, M100.7900 ####[facility] [address] [place], [address] Lymphocytes/100 WBC (Bld) 6.0 % Low 19-41 [facility] Comment on above: Performed By: #### L 500.4050, BTS, L300.3900, L503.6005, L501.4020, L501.2450, L300.4310, L100.0100, M100.7900 ####[facility] [address] [place], [address] MCH (RBC) [Entitic mass] 29.6 pg Normal 27.0-32.0 [facility] Comment on above: Performed By: #### L 500.4050, BTS, L300.3900, L503.6005, L501.4020, L501.2450, L300.4310, L100.0100, M100.7900 ####[facility] [address] [place], [address] MCHC (RBC) [Mass/Vol] 32.8 g/dL Normal 32-36 [facility] Comment on above: Performed By: #### L 500.4050, BTS, L300.3900, L503.6005, L501.4020, L501.2450, L300.4310, L100.0100, M100.7900 ####[facility] [address] [place], [address] MCV (RBC) [Entitic vol] 90.2 fL Normal 81-99 [facility] Comment on above: Performed By: #### L 500.4050, BTS, L300.3900, L503.6005, L501.4020, L501.2450, L300.4310, L100.0100, M100.7900 ####[facility] [address] [place], [address] Monocytes/100 WBC (Bld) 3.7 % Normal 0-10 [facility] Comment on above: Performed By: #### L 500.4050, BTS, L300.3900, L503.6005, L501.4020, L501.2450, L300.4310, L100.0100, M100.7900 ####[facility] [address] [place], [address] Neutrophils/100 WBC (Bld) 89.5 % High 47-70 [facility] Comment on above: Performed By: #### L 500.4050, BTS, L300.3900, L503.6005, L501.4020, L501.2450, L300.4310, L100.0100, M100.7900 ####[facility] [address] [place], [address] Nucleated RBC (Bld) [#/Vol] 0 10*3/uL Normal 0-5 [facility] Comment on above: Performed By: #### L 500.4050, BTS, L300.3900, L503.6005, L501.4020, L501.2450, L300.4310, L100.0100, M100.7900 ####[facility] [address] [place], [address] Platelet mean volume (Bld) [Entitic vol] 10.0 fL Normal 6.2-12.0 [facility] Comment on above: Performed By: #### L 500.4050, BTS, L300.3900, L503.6005, L501.4020, L501.2450, L300.4310, L100.0100, M100.7900 ####[facility] [address] [place], [address] Platelets (Bld) [#/Vol] 412 10*3/uL Normal 150-450 [facility] Comment on above: Performed By: #### L 500.4050, BTS, L300.3900, L503.6005, L501.4020, L501.2450, L300.4310, L100.0100, M100.7900 ####[facility] [address] [place], [address] RBC (Bld) [#/Vol] 5.00 10*6/uL Normal 4.2-5.4 [facility] Comment on above: Performed By: #### L 500.4050, BTS, L300.3900, L503.6005, L501.4020, L501.2450, L300.4310, L100.0100, M100.7900 ####[facility] [address] [place], [address] RDW SD 41.9 fl Normal 35.1-43.9 [facility] Comment on above: Performed By: #### L 500.4050, BTS, L300.3900, L503.6005, L501.4020, L501.2450, L300.4310, L100.0100, M100.7900 ####[facility] [address] [place], [address] WBC (Bld) [#/Vol] 19.4 10*3/uL High 4.4-11.0 [facility] Comment on above: Performed By: #### L 500.4050, BTS, L300.3900, L503.6005, L501.4020, L501.2450, L300.4310, L100.0100, M100.7900 ####[facility] [address] [place], [place], [phone] CTA Chst, Abd, Pel W and/or WOon 12-30-2023 CTA Chst, Abd, Pel W and/or WO Normal [facility] Clarity (U)Ordered By: Yifan Zepeda on 12-30-2023 Urine clarity Turbid Clear [facility] Color (U)Ordered By: Yifan granger on 12-30-2023 Urine color determination Yellow Yellow [facility] Comprehensive Metabolic Prof ilon 12-30-2023 Albumin [Mass/Vol] 4.1 g/dL Normal 3.2-5.0 [facility] Comment on above: Order Comment: 'TROP ' Serial specimen #1, #2 or #3: 1 Performed By: #### L 500.4050, BTS, L300.3900, L503.6005, L501.4020, L501.2450, L300.4310, L100.0100, M100.7900 ####[facility] [address] [place], [place], [phone] Albumin/Globulin [Mass ratio] 1.0 {ratio} Normal 0.9-2.4 [facility] Comment on above: Order Comment: 'TROP ' Serial specimen #1, #2 or #3: 1 Performed By: #### L 500.4050, BTS, L300.3900, L503.6005, L501.4020, L501.2450, L300.4310, L100.0100, M100.7900 ####[facility] [address] [place], [address] ALK P 93 U/L Normal 45-117 [facility] Comment on above: Order Comment: 'TROP ' Serial specimen #1, #2 or #3: 1 Performed By: #### L 500.4050, BTS, L300.3900, L503.6005, L501.4020, L501.2450, L300.4310, L100.0100, M100.7900 ####[facility] [address] [place], [place], [phone] ALT [Catalytic activity/Vol] 38 U/L Normal 13-56 [facility] Comment on above: Order Comment: 'TROP ' Serial specimen #1, #2 or #3: 1 Performed By: #### L 500.4050, BTS, L300.3900, L503.6005, L501.4020, L501.2450, L300.4310, L100.0100, M100.7900 ####[facility] [address] [place], [place], [phone] AST [Catalytic activity/Vol] 36 U/L Normal 15-37 [facility] Comment on above: Order Comment: 'TROP ' Serial specimen #1, #2 or #3: 1 Performed By: #### L 500.4050, BTS, L300.3900, L503.6005, L501.4020, L501.2450, L300.4310, L100.0100, M100.7900 ####[facility] [address] [place], [place], [phone] Bilirubin [Mass/Vol] 0.70 mg/dL Normal 0.20-1.00 [facility] Comment on above: Order Comment: 'TROP ' Serial specimen #1, #2 or #3: 1 Result Comment: For patients on eltrombopag therapy, use of Dimension [place] TBIL is not recommended. Performed By: #### L 500.4050, BTS, L300.3900, L503.6005, L501.4020, L501.2450, L300.4310, L100.0100, M100.7900 ####[facility] [address] [place], [place], [phone]) BUN/CRE 20.9 RATIO High 10-20 [facility] Comment on above: Order Comment: 'TROP ' Serial specimen #1, #2 or #3: 1 Performed By: #### L 500.4050, BTS, L300.3900, L503.6005, L501.4020, L501.2450, L300.4310, L100.0100, M100.7900 ####[facility] [address] [place], [address] CA,Total 9.6 mg/dL Normal 8.5-10.1 [facility] Comment on above: Order Comment: 'TROP ' Serial specimen #1, #2 or #3: 1 Performed By: #### L 500.4050, BTS, L300.3900, L503.6005, L501.4020, L501.2450, L300.4310, L100.0100, M100.7900 ####[facility] [address] [place], [address] Chloride [Moles/Vol] 105 mmol/L Normal 98-107 [facility] Comment on above: Order Comment: 'TROP ' Serial specimen #1, #2 or #3: 1 Performed By: #### L 500.4050, BTS, L300.3900, L503.6005, L501.4020, L501.2450, L300.4310, L100.0100, M100.7900 ####[facility] [address] [place], [address] CO2 [Moles/Vol] 21.0 mmol/L Normal 21.0-32.0 [facility] Comment on above: Order Comment: 'TROP ' Serial specimen #1, #2 or #3: 1 Performed By: #### L 500.4050, BTS, L300.3900, L503.6005, L501.4020, L501.2450, L300.4310, L100.0100, M100.7900 ####[facility] [address] [place], [address] Creatinine [Mass/Vol] 1.96 mg/dL High 0.55-1.02 [facility] Comment on above: Order Comment: 'TROP ' Serial specimen #1, #2 or #3: 1 Result Comment: The validity of the calculated GFR GFRAA in patients over70 years has not been determined. Clinical correlation isessential. Performed By: #### L 500.4050, BTS, L300.3900, L503.6005, L501.4020, L501.2450, L300.4310, L100.0100, M100.7900 ####[facility] [address] [place], [place], [phone] ECRCL 25.36 ml/min Normal [facility] Comment on above: Order Comment: 'TROP ' Serial specimen #1, #2 or #3: 1 Performed By: #### L 500.4050, BTS, L300.3900, L503.6005, L501.4020, L501.2450, L300.4310, L100.0100, M100.7900 ####[facility] [address] [place], [place], [phone]) EST GFR - AA 32 mL/min Low >60 [facility] Comment on above: Order Comment: 'TROP ' Serial specimen #1, #2 or #3: 1 Result Comment: Afri can Croatian GFR Calc Performed By: #### L 500.4050, BTS, L300.3900, L503.6005, L501.4020, L501.2450, L300.4310, L100.0100, M100.7900 ####[facility] [address] [place], [place], [phone](625) GAP 14 Normal 5-15 [facility] Comment on above: Order Comment: 'TROP ' Serial specimen #1, #2 or #3: 1 Performed By: #### L 500.4050, BTS, L300.3900, L503.6005, L501.4020, L501.2450, L300.4310, L100.0100, M100.7900 ####[facility] [address] [place], [place], [phone]) GFR/1.73 sq M.predicted among non-blacks MDRD (S/P/Bld) [Vol rate/Area] 27 mL/min/{1.73_m2} Low >60 [facility] Comment on above: Order Comment: 'TROP ' Serial specimen #1, #2 or #3: 1 Result Comment: Non- GFR Calc Performed By: #### L 500.4050, BTS, L300.3900, L503.6005, L501.4020, L501.2450, L300.4310, L100.0100, M100.7900 ####[facility] [address] [place], [address] Globulin (S) [Mass/Vol] 4.1 g/dL Normal 2.2-4.2 [facility] Comment on above: Order Comment: 'TROP ' Serial specimen #1, #2 or #3: 1 Performed By: #### L 500.4050, BTS, L300.3900, L503.6005, L501.4020, L501.2450, L300.4310, L100.0100, M100.7900 ####[facility] [address] [place], [address] Glucose [Mass/Vol] 405 mg/dL High 74-106 [facility] Comment on above: Order Comment: 'TROP ' Serial specimen #1, #2 or #3: 1 Result Comment: Gluc ose result greater than or equal to 200 mg/dLsuggests DIABETES MELLITUS per A.D.A. criteria. Performed By: #### L 500.4050, BTS, L300.3900, L503.6005, L501.4020, L501.2450, L300.4310, L100.0100, M100.7900 ####[facility] [address] [place], [address] Potassium [Moles/Vol] 3.8 mmol/L Normal 3.5-5.1 [facility] Comment on above: Order Comment: 'TROP ' Serial specimen #1, #2 or #3: 1 Performed By: #### L 500.4050, BTS, L300.3900, L503.6005, L501.4020, L501.2450, L300.4310, L100.0100, M100.7900 ####[facility] [address] [place], [address] Sodium [Moles/Vol] 140 mmol/L Normal 136-145 [facility] Comment on above: Order Comment: 'TROP ' Serial specimen #1, #2 or #3: 1 Performed By: #### L 500.4050, BTS, L300.3900, L503.6005, L501.4020, L501.2450, L300.4310, L100.0100, M100.7900 ####[facility] [address] [place], [address] T PROT 8.2 g/dL Normal 6.4-8.2 [facility] Comment on above: Order Comment: 'TROP ' Serial specimen #1, #2 or #3: 1 Performed By: #### L 500.4050, BTS, L300.3900, L503.6005, L501.4020, L501.2450, L300.4310, L100.0100, M100.7900 ####[facility] [address] [place], [address] Urea nitrogen [Mass/Vol] 41 mg/dL High 7-18 [facility] Comment on above: Order Comment: 'TROP ' Serial specimen #1, #2 or #3: 1 Performed By: #### L 500.4050, BTS, L300.3900, L503.6005, L501.4020, L501.2450, L300.4310, L100.0100, M100.7900 ####[facility] [address] [place], [address] Consultation - Intensiviston 12-30-2023 Consultation - Inspectors And Regulatory Officers Normal [facility] Echo Complete W/ Contraston 12-30-2023 Echo Complete W/ Contrast Normal [facility] Emergency Department Summary on 12-30-2023 Emergency Department Summary Normal [facility] Glucose Ql (U)Ordered By: Ciro Zepeda on 12-30-2023 Urine glucose detection 50 mg/dl High Normal [facility] H AND P Exam - Hospitaliston 12-30-2023 H&P Exam - Hospitalist Normal [facility] HH, Hemoglobin AND Hematocri ton 12-30-2023 Hematocrit (Bld) [Volume fraction] 43.4 % Normal 37-47 [facility] Comment on above: Performed By: #### L 100.0600 ####[facility] [address] [place], [place], [phone] Hemoglobin (Bld) [Mass/Vol] 13.5 g/dL Normal 12.0-15.0 [facility] Comment on above: Performed By: #### L 100.0600 ####[facility] [address] [place], [place], [phone] Hyaline casts LM.LPF (Urine sed) [#/Area]Ordered By: Yifan Zepeda on 12-30-2023 Urine sediment hyaline cast count by microscopy (number/low power field) 0-5 SEEN /lpf 0-5 [facility] International normalized rat io (INR) calculationOrdered By: Yifan Zepeda on 12-30-2023 International normalized ratio (INR) calculation 1.1 [facility] L501.4020on 12-30-2023 TROPONIN-I HS 2585 pg/mL Invalid Interpretation Code 3.0-54.0 [facility] Comment on above: Order Comment: 'TROP ' Serial specimen #1, #2 or #3: 2 Result Comment: Crit ical Result(s) Called at: 22:10:33 12/30/2023 by: TOÑO JOSEPH. Results read back by same. Please Note: New Test Units and Gender Specific Reference Ranges. For more information see Policy Stat Procedure [place] High Sensitivity Troponin (TNIH) and attachments. Performed By: #### L 501.4020 ####[facility] [address] [place], [place], [phone] TROPONIN-I HS 2872 pg/mL Invalid Interpretation Code 3.0-54.0 [facility] Comment on above: Order Comment: 'TROP ' Serial specimen #1, #2 or #3: 1 Result Comment: Crit ical Result(s) Called at: 20:22:43 12/30/2023 by: TOÑO TO MARTELL2. Results read back by same. Please Note: New Test Units and Gender Specific Reference Ranges. For more information see Policy Stat Procedure [place] High Sensitivity Troponin (TNIH) and attachments. Performed By: #### L 500.4050, BTS, L300.3900, L503.6005, L501.4020, L501.2450, L300.4310, L100.0100, M100.7900 ####[facility] [address] [place], [place], [phone] Lactic Acidon 12-30-2023 Lactate [Moles/Vol] 3.2 mmol/L Invalid Interpretation Code 0.4-1.9 [facility] Comment on above: Order Comment: Y Result Comment: Crit ical Result(s) Called at: 20:24:24 12/30/2023 by: TOÑO TO MARTELL2. Results read back by same. Performed By: #### L 500.4050, BTS, L300.3900, L503.6005, L501.4020, L501.2450, L300.4310, L100.0100, M100.7900 ####[facility] [address] [facility] [place], [place], [phone] Lactic acid measurementOrder ed By: Yifan Zepeda on 12-30-2023 Lactic acid measurement 3.2 mmol/L High 0.4-2.0 [facility] Leukocyte esterase Test stri p Ql (U)Ordered By: Yifan Zepeda on 12-30-2023 Urine leukocyte esterase detection by dipstick 500 /ul High Negative [facility] Lipaseon 12-30-2023 Lipase [Catalytic activity/Vol] 20 U/L Normal 13-75 [facility] Comment on above: Order Comment: 'TROP ' Serial specimen #1, #2 or #3: 1 Result Comment: La aguilar note:LIPASE revised reference range effective 22.New Lipase methodology. Expected to produce lower valuesthan the previous assay method.NEW Reference Range: 13 - 75 U/L Performed By: #### L 500.4050, BTS, L300.3900, L503.6005, L501.4020, L501.2450, L300.4310, L100.0100, M100.7900 ####[facility] [address] [place], [place], [phone] Lower GI hemoglobin IA Ql (S tl)Ordered By: Yifan Zepeda on 12-30-2023 Stool gastrointestinal hemoglobin detection by immunologic method Positive Abnormal [facility] M100.678on 12-30-2023 M100.678 Pending SARS-CoV-2 (COVID 19) Negative INFLUENZA A Negative INFLUENZA B Negative RSV PCR Negative Normal [facility] Comment on above: Performed By: #### M 100.2200, M100.678 ####[facility] [address] [place], [place], [address] Magnesiumon 12-30-2023 Magnesium [Mass/Vol] 1.3 mg/dL Low 1.6-2.6 [facility] Comment on above: Order Comment: Comme nts: may add to ED labs Result Comment: Slig ht Hemolysis, Result may be falsely increased. Performed By: #### L 501.5200 ####[facility] [address] [place], [place], [phone] Microscopic analysis of urin e for red blood cells (RBC)Ordered By: Yifan Zepeda on 12-30-2023 Microscopic analysis of urine for red blood cells (RBC) 5-10 SEEN /hpf 0-5 [facility] Mucus LM Ql (Urine sed)Order ed By: Yifan Zepeda on 12-30-2023 Mucus detection in urine sediment by light microscopy 0 SEEN /hpf [facility] Partial Thromboplast Timeon 12-30-2023 aPTT Coag (Bld) [Time] 26.1 s Normal 24.1-36.2 [facility] Comment on above: Performed By: #### L 500.4050, BTS, L300.3900, L503.6005, L501.4020, L501.2450, L300.4310, L100.0100, M100.7900 ####[facility] [address] [place], [address] Protein Test strip Ql (U)Ord ered By: Yifan Zepeda on 12-30-2023 Urine protein assay by test strip, semi-quantitative 100 mg/dl High Negative [facility] Prothrombin Time w/INRon INR Coag (PPP) [Relative time] 1.1 {INR} Normal [facility] Comment on above: Performed By: #### L 500.4050, BTS, L300.3900, L503.6005, L501.4020, L501.2450, L300.4310, L100.0100, M100.7900 ####[facility] [address] [place], [place], [phone] PT Coag (PPP) [Time] 14.4 s Normal 11.7-14.9 [facility] Comment on above: Performed By: #### L 500.4050, BTS, L300.3900, L503.6005, L501.4020, L501.2450, L300.4310, L100.0100, M100.7900 ####[facility] [address] [place], [place], [phone] Prothrombin timeOrdered By: Yifan Zepeda on 12-30-2023 Prothrombin time 14.4 SECONDS 11.7-14.9 [facility] Specific gravity (U) [Rel de nsity]Ordered By: Yifan Zepeda on 12-30-2023 Urine specific gravity measurement 1.025 1.002-1.030 [facility] Squamous epithelial cells de tection in urine sediment by light microscopyOrdered By: Yifan Zepeda on 12-30-2023 Squamous epithelial cells detection in urine sediment by light microscopy 0-5 SEEN /hpf 0-5 [facility] Stool Occult Blood iFOBon STOB Positive Normal [facility] Comment on above: Performed By: #### L 500.4050, BTS, L300.3900, L503.6005, L501.4020, L501.2450, L300.4310, L100.0100, M100.7900 ####[facility] [address] [place], [place], [phone] Type AND Screenon 12-30-2023 Ab SCREEN GEL Negative Normal [facility] Comment on above: Order Comment: A Performed By: #### L 500.4050, BTS, L300.3900, L503.6005, L501.4020, L501.2450, L300.4310, L100.0100, M100.7900 ####[facility] [address] [place], [place], [phone] ABO and Rh group Nom (Bld) Blood group O Rh(D) positive Normal [facility] Comment on above: Order Comment: A Performed By: #### L 500.4050, BTS, L300.3900, L503.6005, L501.4020, L501.2450, L300.4310, L100.0100, M100.7900 ####[facility] [address] [place], [place], [phone] Urinalysis, Completeon 12-29 RBC 5-10 SEEN Normal 0-5 [facility] Comment on above: Order Comment: CLEAN CATCH Performed By: #### L 400.0001 ####[facility] [address] [place], [place], [phone] EPI,RENAL 0-5 SEEN Normal 0-5 [facility] Comment on above: Order Comment: CLEAN CATCH Performed By: #### L 400.0001 ####[facility] [address] [place], [address] EPI,SQUAMOUS 0-5 SEEN Normal 5-10 [facility] Comment on above: Order Comment: CLEAN CATCH Performed By: #### L 400.0001 ####[facility] [address] [place], [address] WBC 50-100 SEEN Normal 0-5 [facility] Comment on above: Order Comment: CLEAN CATCH Performed By: #### L 400.0001 ####[facility] [address] [place], [address] BACTERIA 4+ /hpf Normal None Seen [facility] Comment on above: Order Comment: CLEAN CATCH Performed By: #### L 400.0001 ####[facility] [address] [place], [address] CAST,HYALINE 0-5 SEEN Normal 0-5 [facility] Comment on above: Order Comment: CLEAN CATCH Performed By: #### L 400.0001 ####[facility] [address] [place], [address] Mucus Ql (Urine sed) 0 SEEN Normal [facility] Comment on above: Order Comment: CLEAN CATCH Performed By: #### L 400.0001 ####[facility] [address] [place], [address] Urine blood detectionOrdered By: Yifan Zepeda on 12-30-2023 Urine blood detection 25 /ul High Negative [facility] Urine cultureOrdered By: Diana Zepeda on 12-30-2023 Urine culture Presumptive E. coli Abnormal [facility] Urine ketones detection by t est stripOrdered By: Yifan Zepeda on 12-30-2023 Urine ketones detection by test strip Negative Negative [facility] Urobilinogen Ql (U)Ordered B y: Yifan Zepeda on 12-30-2023 Urine urobilinogen measurement Normal mg/dl Normal [facility] White blood cell countOrdere d By: Yifan Zepeda on 12-30-2023 White blood cell count 50-100 SEEN /hpf 0-5 [facility] aPTT Coag (PPP) [Time]Ordere d By: Yifan Zepeda on 12-30-2023 Activated partial thromboplastin time (aPTT) in platelet poor plasma by coagulation a 26.1 Seconds 24.1-36.2 [facility] pH (U)Ordered By: Yifan obrien on 12-30-2023 Urine pH 5.0 5.0 - 8.0 [facility] ANCAon 10-16-2023 Atypical pANCA <1:20 Normal Neg:<1:20 [facility] Comment on above: Result Comment: The atypical pANCA pattern has been observed in asignificant percentage of patients with ulcerative colitis,primary sclerosing cholangitis and autoimmune hepatitis.Performed at: [employer] [id number] Director: Avni Valles PhD, Phone: [phone] Performed By: #### L 501.6710, L3200.0500, L500.4050, L3100.5440, L3300.1200, L100.0100, L101.9900, L501.2450, L500.4100 ####[facility] [address] [place], [place], [phone] Cytoplasmic Ab <1:20 Normal Neg:<1:20 [facility] Comment on above: Performed By: #### L 501.6710, L3200.0500, L500.4050, L3100.5440, L3300.1200, L100.0100, L101.9900, L501.2450, L500.4100 ####[facility] [address] [place], [place], [phone] Perinuclear Ab. <1:20 Normal Neg:<1:20 [facility] Comment on above: Result Comment: The presence of positive fluorescence exhibiting P-ANCA orC-ANCA patterns alone is not specific for the diagnosis ofWegener's Granulomatosis (WG) or microscopic polyangiitis.Decisions about treatment should not be based solely onANCA IFA results. The International ANCA Group Consensusrecommends follow up testing of positive sera with both IA-3 and MPO-ANCA enzyme immunoassays. As many as 5% serumsamples are positive only by EIA. Ref. AM J Clin Xnjhez5423;111:507-513. Performed By: #### L 501.6710, L3200.0500, L500.4050, L3100.5440, L3300.1200, L100.0100, L101.9900, L501.2450, L500.4100 ####[facility] [address] [place], [address] IgG Subclasseson 10-16-2023 IgG, SUBCLASS 1 548 mg/dL Normal 248-810 [facility] Comment on above: Performed By: #### L 501.6710, L3200.0500, L500.4050, L3100.5440, L3300.1200, L100.0100, L101.9900, L501.2450, L500.4100 ####[facility] [address] [place], [address] IgG, SUBCLASS 2 464 mg/dL Normal 130-555 [facility] Comment on above: Performed By: #### L 501.6710, L3200.0500, L500.4050, L3100.5440, L3300.1200, L100.0100, L101.9900, L501.2450, L500.4100 ####[facility] [address] [place], [address] IgG, SUBCLASS 3 32 mg/dL Normal 15-102 [facility] Comment on above: Performed By: #### L 501.6710, L3200.0500, L500.4050, L3100.5440, L3300.1200, L100.0100, L101.9900, L501.2450, L500.4100 ####[facility] [address] [place], [address] IgG, SUBCLASS 4 69 mg/dL Normal 2-96 [facility] Comment on above: Performed By: #### L 501.6710, L3200.0500, L500.4050, L3100.5440, L3300.1200, L100.0100, L101.9900, L501.2450, L500.4100 ####[facility] [address] [place], [place], [phone] IGG,QUANT 1117 mg/dL Normal 586-1602 [facility] Comment on above: Performed By: #### L 501.6710, L3200.0500, L500.4050, L3100.5440, L3300.1200, L100.0100, L101.9900, L501.2450, L500.4100 ####[facility] [address] [place], [place], [address] NORMA Comprehensive Panelon NORMA TABLE Comment Normal . [facility] Comment on above: Result Comment: Auto antibody Disease Association --------- Condition Frequency ---------Antinuclear Antibody, SLE, mixed connectiveDirect (NORMA-D) tissue diseases ---------dsDNA SLE 40 - 60% ---------Chromatin Drug induced SLE 90% SLE 48 - 97% ---------SSA (Ro) SLE 25 - 35% Sjogren's Syndrome 40 - 70% Lupus 100% ---------SSB (La) SLE 10% Sjogren's Syndrome 30% ---------Sm (anti-Dickson) SLE 15 - 30% ---------LINE MAINTAINER SECTION Mixed Connective Tissue Disease 95%(U1 nRNP, SLE 30 - 50%anti-ribonucleoprotein) Polymyositis and/or Dermatomyositis 20% ---------Scl-70 (antiDNA Scleroderma (diffuse) 20 - 35%topoisomerase) Crest 13% ---------Angelica-1 Polymyositis and/or Dermatomyositis 20 - 40% ---------Centromere B Scleroderma - Crest variant 80%Performed at: [facility] - [facility] [id number] [place], [place] [id number] Director: Avni Valles PhD, Phone: [phone] Performed By: #### L 501.6710, L3200.0500, L500.4050, L3100.5440, L3300.1200, L100.0100, L101.9900, L501.2450, L500.4100 ####[facility] [address] [place], [address] ANTI-CENT B AB <0.2 Normal 0.0-0.9 [facility] Comment on above: Performed By: #### L 501.6710, L3200.0500, L500.4050, L3100.5440, L3300.1200, L100.0100, L101.9900, L501.2450, L500.4100 ####[facility] [address] [place], [address] ANTI-DNA (DS)AB 2 IU/mL Normal 0-9 [facility] Comment on above: Result Comment: Nega tive <5 Equivocal 5 - 9 Positive >9 Performed By: #### L 501.6710, L3200.0500, L500.4050, L3100.5440, L3300.1200, L100.0100, L101.9900, L501.2450, L500.4100 ####[facility] [address] [place], [place], [id number] ANTI-ANGELICA-1 <0.2 Normal 0.0-0.9 [facility] Comment on above: Performed By: #### L 501.6710, L3200.0500, L500.4050, L3100.5440, L3300.1200, L100.0100, L101.9900, L501.2450, L500.4100 ####[facility] [address] [place], [address] ANTI-SS-A < 0.2 Normal 0.0-0.9 [facility] Comment on above: Performed By: #### L 501.6710, L3200.0500, L500.4050, L3100.5440, L3300.1200, L100.0100, L101.9900, L501.2450, L500.4100 ####[facility] [address] [place], [place], [phone] ANTI-SS-B < 0.2 Normal 0.0-0.9 [facility] Comment on above: Performed By: #### L 501.6710, L3200.0500, L500.4050, L3100.5440, L3300.1200, L100.0100, L101.9900, L501.2450, L500.4100 ####[facility] [address] [place], [place], [phone] ANTICHROMATIN <0.2 Normal 0.0-0.9 [facility] Comment on above: Performed By: #### L 501.6710, L3200.0500, L500.4050, L3100.5440, L3300.1200, L100.0100, L101.9900, L501.2450, L500.4100 ####[facility] [address] [place], [place], [phone] ANTISCLERODERM <0.2 Normal 0.0-0.9 [facility] Comment on above: Performed By: #### L 501.6710, L3200.0500, L500.4050, L3100.5440, L3300.1200, L100.0100, L101.9900, L501.2450, L500.4100 ####[facility] [address] [place], [place], [phone] LINE MAINTAINER SECTION Ab <0.2 Normal 0.0-0.9 [facility] Comment on above: Performed By: #### L 501.6710, L3200.0500, L500.4050, L3100.5440, L3300.1200, L100.0100, L101.9900, L501.2450, L500.4100 ####[facility] [address] [place], [place], [phone] DICKSON Ab <0.2 Normal 0.0-0.9 [facility] Comment on above: Performed By: #### L 501.6710, L3200.0500, L500.4050, L3100.5440, L3300.1200, L100.0100, L101.9900, L501.2450, L500.4100 ####[facility] [address] [place], [address] CBC W/Diff, Automatedon 09-13 Absolute Lymph 2.45 X10 3/uL Normal 0.83-4.51 [facility] Comment on above: Order Comment: INDUSTRIAL WASTE INSPECTOR.ED GAR ORDERED BMP WELL Performed By: #### L 501.6710, L3200.0500, L500.4050, L3100.5440, L3300.1200, L100.0100, L101.9900, L501.2450, L500.4100 ####[facility] [address] [place], [address] Absolute Neut 6.4 X10 3/uL Normal 2.0-7.7 [facility] Comment on above: Order Comment: INDUSTRIAL WASTE INSPECTOR.ED GAR ORDERED BMP WELL Performed By: #### L 501.6710, L3200.0500, L500.4050, L3100.5440, L3300.1200, L100.0100, L101.9900, L501.2450, L500.4100 ####[facility] [address] [place], [address] Basophils/100 WBC (Bld) 0.3 % Normal 0-1 [facility] Comment on above: Order Comment: INDUSTRIAL WASTE INSPECTOR.ED GAR ORDERED BMP WELL Performed By: #### L 501.6710, L3200.0500, L500.4050, L3100.5440, L3300.1200, L100.0100, L101.9900, L501.2450, L500.4100 ####[facility] [address] [place], [address] Eosinophils/100 WBC (Bld) 3.0 % Normal 0-5 [facility] Comment on above: Order Comment: INDUSTRIAL WASTE INSPECTOR.ED GAR ORDERED BMP WELL Performed By: #### L 501.6710, L3200.0500, L500.4050, L3100.5440, L3300.1200, L100.0100, L101.9900, L501.2450, L500.4100 ####[facility] [address] [place], [address] Erythrocyte distribution width (RBC) [Ratio] 12.7 % Normal 11.6-14.6 [facility] Comment on above: Order Comment: INDUSTRIAL WASTE INSPECTOR.ED GAR ORDERED BMP WELL Performed By: #### L 501.6710, L3200.0500, L500.4050, L3100.5440, L3300.1200, L100.0100, L101.9900, L501.2450, L500.4100 ####[facility] [address] [facility] [place], [address] Hematocrit (Bld) [Volume fraction] 41.4 % Normal 37-47 [facility] Comment on above: Order Comment: INDUSTRIAL WASTE INSPECTOR.ED GAR ORDERED BMP WELL Performed By: #### L 501.6710, L3200.0500, L500.4050, L3100.5440, L3300.1200, L100.0100, L101.9900, L501.2450, L500.4100 ####[facility] [address] [facility] [place], [address] Hemoglobin (Bld) [Mass/Vol] 12.7 g/dL Normal 12.0-15.0 [facility] Comment on above: Order Comment: INDUSTRIAL WASTE INSPECTOR.ED GAR ORDERED BMP WELL Performed By: #### L 501.6710, L3200.0500, L500.4050, L3100.5440, L3300.1200, L100.0100, L101.9900, L501.2450, L500.4100 ####[facility] [address] [place], [address] IG% 0.300 Normal 0.0-0.9 [facility] Comment on above: Order Comment: INDUSTRIAL WASTE INSPECTOR.ED GAR ORDERED BMP WELL Result Comment: IG% - Immature Granulocytes (promyelocytes, myelocytes andmetamyelocytes) > 1% indicates that a LEFT SHIFT is Present. Performed By: #### L 501.6710, L3200.0500, L500.4050, L3100.5440, L3300.1200, L100.0100, L101.9900, L501.2450, L500.4100 ####[facility] [address] [place], [place], [phone] Lymphocytes/100 WBC (Bld) 25.4 % Normal 19-41 [facility] Comment on above: Order Comment: INDUSTRIAL WASTE INSPECTOR.ED GAR ORDERED BMP WELL Performed By: #### L 501.6710, L3200.0500, L500.4050, L3100.5440, L3300.1200, L100.0100, L101.9900, L501.2450, L500.4100 ####[facility] [address] [place], [place], [phone] MCH (RBC) [Entitic mass] 29.3 pg Normal 27.0-32.0 [facility] Comment on above: Order Comment: INDUSTRIAL WASTE INSPECTOR.ED GAR ORDERED BMP WELL Performed By: #### L 501.6710, L3200.0500, L500.4050, L3100.5440, L3300.1200, L100.0100, L101.9900, L501.2450, L500.4100 ####[facility] [address] [facility] [place], [address] MCHC (RBC) [Mass/Vol] 30.7 g/dL Low 32-36 [facility] Comment on above: Order Comment: INDUSTRIAL WASTE INSPECTOR.ED GAR ORDERED BMP WELL Performed By: #### L 501.6710, L3200.0500, L500.4050, L3100.5440, L3300.1200, L100.0100, L101.9900, L501.2450, L500.4100 ####[facility] [address] [place], [address] MCV (RBC) [Entitic vol] 95.4 fL Normal 81-99 [facility] Comment on above: Order Comment: INDUSTRIAL WASTE INSPECTOR.ED GAR ORDERED BMP WELL Performed By: #### L 501.6710, L3200.0500, L500.4050, L3100.5440, L3300.1200, L100.0100, L101.9900, L501.2450, L500.4100 ####[facility] [address] [place], [place], [phone] Monocytes/100 WBC (Bld) 4.6 % Normal 0-10 [facility] Comment on above: Order Comment: INDUSTRIAL WASTE INSPECTOR.ED GAR ORDERED BMP WELL Performed By: #### L 501.6710, L3200.0500, L500.4050, L3100.5440, L3300.1200, L100.0100, L101.9900, L501.2450, L500.4100 ####[facility] [address] [place], [address] Neutrophils/100 WBC (Bld) 66.4 % Normal 47-70 [facility] Comment on above: Order Comment: INDUSTRIAL WASTE INSPECTOR.ED GAR ORDERED BMP WELL Performed By: #### L 501.6710, L3200.0500, L500.4050, L3100.5440, L3300.1200, L100.0100, L101.9900, L501.2450, L500.4100 ####[facility] [address] [place], [address] Nucleated RBC (Bld) [#/Vol] 0 10*3/uL Normal 0-5 [facility] Comment on above: Order Comment: INDUSTRIAL WASTE INSPECTOR.ED GAR ORDERED BMP WELL Performed By: #### L 501.6710, L3200.0500, L500.4050, L3100.5440, L3300.1200, L100.0100, L101.9900, L501.2450, L500.4100 ####[facility] [address] [place], [address] Platelet mean volume (Bld) [Entitic vol] 9.6 fL Normal 6.2-12.0 [facility] Comment on above: Order Comment: INDUSTRIAL WASTE INSPECTOR.ED GAR ORDERED BMP WELL Performed By: #### L 501.6710, L3200.0500, L500.4050, L3100.5440, L3300.1200, L100.0100, L101.9900, L501.2450, L500.4100 ####[facility] [address] [place], [place], [phone] Platelets (Bld) [#/Vol] 303 10*3/uL Normal 150-450 [facility] Comment on above: Order Comment: INDUSTRIAL WASTE INSPECTOR.ED GAR ORDERED BMP WELL Performed By: #### L 501.6710, L3200.0500, L500.4050, L3100.5440, L3300.1200, L100.0100, L101.9900, L501.2450, L500.4100 ####[facility] [address] [place], [place], [phone]) RBC (Bld) [#/Vol] 4.34 10*6/uL Normal 4.2-5.4 [facility] Comment on above: Order Comment: INDUSTRIAL WASTE INSPECTOR.ED GAR ORDERED BMP WELL Performed By: #### L 501.6710, L3200.0500, L500.4050, L3100.5440, L3300.1200, L100.0100, L101.9900, L501.2450, L500.4100 ####[facility] [address] [place], [place], [phone] RDW SD 44.6 fl High 35.1-43.9 [facility] Comment on above: Order Comment: INDUSTRIAL WASTE INSPECTOR.ED GAR ORDERED BMP WELL Performed By: #### L 501.6710, L3200.0500, L500.4050, L3100.5440, L3300.1200, L100.0100, L101.9900, L501.2450, L500.4100 ####[facility] [address] [place], [place], [phone] WBC (Bld) [#/Vol] 9.7 10*3/uL Normal 4.4-11.0 [facility] Comment on above: Order Comment: INDUSTRIAL WASTE INSPECTOR.ED GAR ORDERED BMP WELL Performed By: #### L 501.6710, L3200.0500, L500.4050, L3100.5440, L3300.1200, L100.0100, L101.9900, L501.2450, L500.4100 ####[facility] [address] [place], [place], [phone] CRPon 10-11-2023 C-REACTIVE PROT < 2.90 Normal 0.0-3.0 [facility] Comment on above: Order Comment: INDUSTRIAL WASTE INSPECTOR.ED GAR ORDERED BMP WELL Result Comment: C-Re active Protein (CRP) provides useful information for thediagnosis, therapy and monitoring of inflammatory processesand associated diseases. For the evaluation of Relative Riskfor Cardiovascular Disease, a High Sensitivity CRP (HSCRP)should be ordered. Performed By: #### L 501.6710, L3200.0500, L500.4050, L3100.5440, L3300.1200, L100.0100, L101.9900, L501.2450, L500.4100 ####[facility] [address] [place], [place], [phone] Comprehensive Metabolic Prof ilon 10-11-2023 Albumin [Mass/Vol] 4.0 g/dL Normal 3.2-5.0 [facility] Comment on above: Order Comment: INDUSTRIAL WASTE INSPECTOR.ED GAR ORDERED BMP WELL Performed By: #### L 501.6710, L3200.0500, L500.4050, L3100.5440, L3300.1200, L100.0100, L101.9900, L501.2450, L500.4100 ####[facility] [address] [place], [address] Albumin/Globulin [Mass ratio] 1.0 {ratio} Normal 0.9-2.4 [facility] Comment on above: Order Comment: INDUSTRIAL WASTE INSPECTOR.ED GAR ORDERED BMP WELL Performed By: #### L 501.6710, L3200.0500, L500.4050, L3100.5440, L3300.1200, L100.0100, L101.9900, L501.2450, L500.4100 ####[facility] [address] [place], [address] ALK P 93 U/L Normal 45-117 [facility] Comment on above: Order Comment: INDUSTRIAL WASTE INSPECTOR.ED GAR ORDERED BMP WELL Performed By: #### L 501.6710, L3200.0500, L500.4050, L3100.5440, L3300.1200, L100.0100, L101.9900, L501.2450, L500.4100 ####[facility] [address] [place], [address] ALT [Catalytic activity/Vol] 14 U/L Normal 13-56 [facility] Comment on above: Order Comment: INDUSTRIAL WASTE INSPECTOR.ED GAR ORDERED BMP WELL Performed By: #### L 501.6710, L3200.0500, L500.4050, L3100.5440, L3300.1200, L100.0100, L101.9900, L501.2450, L500.4100 ####[facility] [address] [place], [address] AST [Catalytic activity/Vol] 16 U/L Normal 15-37 [facility] Comment on above: Order Comment: INDUSTRIAL WASTE INSPECTOR.ED GAR ORDERED BMP WELL Performed By: #### L 501.6710, L3200.0500, L500.4050, L3100.5440, L3300.1200, L100.0100, L101.9900, L501.2450, L500.4100 ####[facility] [address] [place], [address] Bilirubin [Mass/Vol] 0.40 mg/dL Normal 0.20-1.00 [facility] Comment on above: Order Comment: INDUSTRIAL WASTE INSPECTOR.ED GAR ORDERED BMP WELL Result Comment: For patients on eltrombopag therapy, use of Dimension [place] TBIL is not recommended. Performed By: #### L 501.6710, L3200.0500, L500.4050, L3100.5440, L3300.1200, L100.0100, L101.9900, L501.2450, L500.4100 ####[facility] [address] [place], [place], [phone] BUN/CRE 32.7 RATIO High 10-20 [facility] Comment on above: Order Comment: INDUSTRIAL WASTE INSPECTOR.ED GAR ORDERED BMP WELL Performed By: #### L 501.6710, L3200.0500, L500.4050, L3100.5440, L3300.1200, L100.0100, L101.9900, L501.2450, L500.4100 ####[facility] [address] [place], [address] CA,Total 10.1 mg/dL Normal 8.5-10.1 [facility] Comment on above: Order Comment: INDUSTRIAL WASTE INSPECTOR.ED GAR ORDERED BMP WELL Performed By: #### L 501.6710, L3200.0500, L500.4050, L3100.5440, L3300.1200, L100.0100, L101.9900, L501.2450, L500.4100 ####[facility] [address] [place], [address] Chloride [Moles/Vol] 108 mmol/L High 98-107 [facility] Comment on above: Order Comment: INDUSTRIAL WASTE INSPECTOR.ED GAR ORDERED BMP WELL Performed By: #### L 501.6710, L3200.0500, L500.4050, L3100.5440, L3300.1200, L100.0100, L101.9900, L501.2450, L500.4100 ####[facility] [address] [place], [address] CO2 [Moles/Vol] 25.0 mmol/L Normal 21.0-32.0 [facility] Comment on above: Order Comment: INDUSTRIAL WASTE INSPECTOR.ED GAR ORDERED BMP WELL Performed By: #### L 501.6710, L3200.0500, L500.4050, L3100.5440, L3300.1200, L100.0100, L101.9900, L501.2450, L500.4100 ####[facility] [address] [place], [address] Creatinine [Mass/Vol] 1.04 mg/dL High 0.55-1.02 [facility] Comment on above: Order Comment: INDUSTRIAL WASTE INSPECTOR.ED GAR ORDERED BMP WELL Result Comment: The validity of the calculated GFR GFRAA in patients over70 years has not been determined. Clinical correlation isessential. Performed By: #### L 501.6710, L3200.0500, L500.4050, L3100.5440, L3300.1200, L100.0100, L101.9900, L501.2450, L500.4100 ####[facility] [address] [place], [address] EST GFR - AA 67 mL/min Normal >60 [facility] Comment on above: Order Comment: INDUSTRIAL WASTE INSPECTOR.ED GAR ORDERED BMP WELL Result Comment: Afri can Croatian GFR Calc Performed By: #### L 501.6710, L3200.0500, L500.4050, L3100.5440, L3300.1200, L100.0100, L101.9900, L501.2450, L500.4100 ####[facility] [address] [place], [address] GAP 6 Normal 5-15 [facility] Comment on above: Order Comment: INDUSTRIAL WASTE INSPECTOR.ED GAR ORDERED BMP WELL Performed By: #### L 501.6710, L3200.0500, L500.4050, L3100.5440, L3300.1200, L100.0100, L101.9900, L501.2450, L500.4100 ####[facility] [address] [place], [place], [phone] GFR/1.73 sq M.predicted among non-blacks MDRD (S/P/Bld) [Vol rate/Area] 56 mL/min/{1.73_m2} Low >60 [facility] Comment on above: Order Comment: INDUSTRIAL WASTE INSPECTOR.ED GAR ORDERED BMP WELL Result Comment: Non- GFR Calc Performed By: #### L 501.6710, L3200.0500, L500.4050, L3100.5440, L3300.1200, L100.0100, L101.9900, L501.2450, L500.4100 ####[facility] [address] [place], [place], [phone] Globulin (S) [Mass/Vol] 4.2 g/dL Normal 2.2-4.2 [facility] Comment on above: Order Comment: INDUSTRIAL WASTE INSPECTOR.ED GAR ORDERED BMP WELL Performed By: #### L 501.6710, L3200.0500, L500.4050, L3100.5440, L3300.1200, L100.0100, L101.9900, L501.2450, L500.4100 ####[facility] [address] [place], [address] Glucose [Mass/Vol] 67 mg/dL Low 74-106 [facility] Comment on above: Order Comment: INDUSTRIAL WASTE INSPECTOR.ED GAR ORDERED BMP WELL Performed By: #### L 501.6710, L3200.0500, L500.4050, L3100.5440, L3300.1200, L100.0100, L101.9900, L501.2450, L500.4100 ####[facility] [address] [place], [address] Potassium [Moles/Vol] 4.8 mmol/L Normal 3.5-5.1 [facility] Comment on above: Order Comment: INDUSTRIAL WASTE INSPECTOR.ED GAR ORDERED BMP WELL Performed By: #### L 501.6710, L3200.0500, L500.4050, L3100.5440, L3300.1200, L100.0100, L101.9900, L501.2450, L500.4100 ####[facility] [address] [place], [address] Sodium [Moles/Vol] 139 mmol/L Normal 136-145 [facility] Comment on above: Order Comment: INDUSTRIAL WASTE INSPECTOR.ED GAR ORDERED BMP WELL Performed By: #### L 501.6710, L3200.0500, L500.4050, L3100.5440, L3300.1200, L100.0100, L101.9900, L501.2450, L500.4100 ####[facility] [address] [place], [address] T PROT 8.2 g/dL Normal 6.4-8.2 [facility] Comment on above: Order Comment: INDUSTRIAL WASTE INSPECTOR.ED GAR ORDERED BMP WELL Performed By: #### L 501.6710, L3200.0500, L500.4050, L3100.5440, L3300.1200, L100.0100, L101.9900, L501.2450, L500.4100 ####[facility] [address] [place], [address] Urea nitrogen [Mass/Vol] 34 mg/dL High 7-18 [facility] Comment on above: Order Comment: INDUSTRIAL WASTE INSPECTOR.ED GAR ORDERED BMP WELL Performed By: #### L 501.6710, L3200.0500, L500.4050, L3100.5440, L3300.1200, L100.0100, L101.9900, L501.2450, L500.4100 ####[facility] [address] [place], [place], [phone] Erythrocyte Sed Rateon 10-10 SED RATE 23 mm/hr Normal 0-30 [facility] Comment on above: Order Comment: INDUSTRIAL WASTE INSPECTOR.ED GAR ORDERED BMP WELL Performed By: #### L 501.6710, L3200.0500, L500.4050, L3100.5440, L3300.1200, L100.0100, L101.9900, L501.2450, L500.4100 ####[facility] [address] [place], [place], [phone] Gastroenterology Visit Repor ton 10-11-2023 Gastroenterology Visit Report Normal [facility] Lipaseon 10-11-2023 Lipase [Catalytic activity/Vol] 31 U/L Normal 13-75 [facility] Comment on above: Order Comment: INDUSTRIAL WASTE INSPECTOR.ED GAR ORDERED BMP WELL Result Comment: La aguilar note:LIPASE revised reference range effective 22.New Lipase methodology. Expected to produce lower valuesthan the previous assay method.NEW Reference Range: 13 - 75 U/L Performed By: #### L 501.6710, L3200.0500, L500.4050, L3100.5440, L3300.1200, L100.0100, L101.9900, L501.2450, L500.4100 ####[facility] [address] [place], [place], [phone] Lipid Profileon 10-11-2023 Cholesterol [Mass/Vol] 204 mg/dL High 200 [facility] Comment on above: Order Comment: INDUSTRIAL WASTE INSPECTOR.ED GAR ORDERED BMP WELL Result Comment: <200 mg/dL Desirable 200-240 mg/dL Borderline >240 mg/dL High Risk Performed By: #### L 501.6710, L3200.0500, L500.4050, L3100.5440, L3300.1200, L100.0100, L101.9900, L501.2450, L500.4100 ####[facility] [address] [place], [address] Cholesterol in HDL [Mass/Vol] 74 mg/dL Normal [facility] Comment on above: Order Comment: INDUSTRIAL WASTE INSPECTOR.ED GAR ORDERED BMP WELL Result Comment: The drugs N-Acetylcysteine and Metamizole may falselydepress this assay. Reference Range HDL <40 mg/dL Low HDL Cholesterol HDL >or= 60 mg/dL High HDL Cholesterol Performed By: #### L 501.6710, L3200.0500, L500.4050, L3100.5440, L3300.1200, L100.0100, L101.9900, L501.2450, L500.4100 ####[facility] [address] [place], [address] Cholesterol in LDL [Mass/Vol] 95 mg/dL Normal 0-130 [facility] Comment on above: Order Comment: INDUSTRIAL WASTE INSPECTOR.ED GAR ORDERED BMP WELL Performed By: #### L 501.6710, L3200.0500, L500.4050, L3100.5440, L3300.1200, L100.0100, L101.9900, L501.2450, L500.4100 ####[facility] [address] [place], [address] Cholesterol in VLDL [Mass/Vol] 35 mg/dL Normal 5-40 [facility] Comment on above: Order Comment: INDUSTRIAL WASTE INSPECTOR.ED GAR ORDERED BMP WELL Performed By: #### L 501.6710, L3200.0500, L500.4050, L3100.5440, L3300.1200, L100.0100, L101.9900, L501.2450, L500.4100 ####[facility] [address] [place], [address] Triglyceride [Mass/Vol] 176 mg/dL Normal [facility] Comment on above: Order Comment: INDUSTRIAL WASTE INSPECTOR.ED GAR ORDERED BMP WELL Result Comment: The drugs N-Acetylcysteine and Metamizole may falselydepress this assay.Serum Triglycerides Reference Interval Normal <150 mg/dL Borderline high 150 - 199 mg/dL High 200 - 499 mg/dL Very High > or = 500 mg/dL Performed By: #### L 501.6710, L3200.0500, L500.4050, L3100.5440, L3300.1200, L100.0100, L101.9900, L501.2450, L500.4100 ####[facility] [address] [place], [address] Basic Metabolic Profile (BMP )on 09-20-2023 BUN/CRE 40.4 RATIO High 10-20 [facility] Comment on above: Performed By: #### L 100.0100, L500.2500 ####[facility] [address] [place], [address] CA,Total 9.0 mg/dL Normal 8.5-10.1 [facility] Comment on above: Performed By: #### L 100.0100, L500.2500 ####[facility] [address] [place], [address] Chloride [Moles/Vol] 111 mmol/L High 98-107 [facility] Comment on above: Performed By: #### L 100.0100, L500.2500 ####[facility] [address] [place], [address] CO2 [Moles/Vol] 23.0 mmol/L Normal 21.0-32.0 [facility] Comment on above: Performed By: #### L 100.0100, L500.2500 ####[facility] [address] [place], [address] Creatinine [Mass/Vol] 1.04 mg/dL High 0.55-1.02 [facility] Comment on above: Result Comment: The validity of the calculated GFR GFRAA in patients over70 years has not been determined. Clinical correlation isessential. Performed By: #### L 100.0100, L500.2500 ####[facility] [address] [place], [address] ECRCL 45.94 ml/min Normal [facility] Comment on above: Performed By: #### L 100.0100, L500.2500 ####[facility] [address] [place], [address] EST GFR - AA 67 mL/min Normal >60 [facility] Comment on above: Result Comment: Afri can Croatian GFR Calc Performed By: #### L 100.0100, L500.2500 ####[facility] [address] [place], [address] GAP 7 Normal 5-15 [facility] Comment on above: Performed By: #### L 100.0100, L500.2500 ####[facility] [address] [place], [address] GFR/1.73 sq M.predicted among non-blacks MDRD (S/P/Bld) [Vol rate/Area] 56 mL/min/{1.73_m2} Low >60 [facility] Comment on above: Result Comment: Non- GFR Calc Performed By: #### L 100.0100, L500.2500 ####[facility] [address] [place], [address] Glucose [Mass/Vol] 139 mg/dL High 74-106 [facility] Comment on above: Result Comment: Fast ing Glucose result greater than or equal to 126 mg/dLsuggests DIABETES MELLITUS per A.D.A. criteria. Performed By: #### L 100.0100, L500.2500 ####[facility] [address] [place], [address] Potassium [Moles/Vol] 3.6 mmol/L Normal 3.5-5.1 [facility] Comment on above: Performed By: #### L 100.0100, L500.2500 ####[facility] [address] [place], [address] Sodium [Moles/Vol] 141 mmol/L Normal 136-145 [facility] Comment on above: Performed By: #### L 100.0100, L500.2500 ####[facility] [address] [place], [address] Urea nitrogen [Mass/Vol] 42 mg/dL High 7-18 [facility] Comment on above: Performed By: #### L 100.0100, L500.2500 ####[facility] [address] [place], [address] Bedside Glucoseon 08--2023 FINGERSTICK GLU 131 mg/dL High 74-106 [facility] Comment on above: Result Comment: GERALDO GEMENT OF PATIENT CARE PER NURSING PROTOCOL Performed By: #### L 501.080 ####[facility] [address] [place], [address] FINGERSTICK GLU 115 mg/dL High 74-106 [facility] Comment on above: Result Comment: GERALDO GEMENT OF PATIENT CARE PER NURSING PROTOCOL Performed By: #### L 501.080 ####[facility] [address] [place], [address] CBC W/Diff, Automatedon 08-0 Absolute Lymph 2.47 X10 3/uL Normal 0.83-4.51 [facility] Comment on above: Performed By: #### L 100.0100, L500.2500 ####[facility] [address] [place], [address] Absolute Neut 6.1 X10 3/uL Normal 2.0-7.7 [facility] Comment on above: Performed By: #### L 100.0100, L500.2500 ####[facility] [address] [place], [address] Basophils/100 WBC (Bld) 0.1 % Normal 0-1 [facility] Comment on above: Performed By: #### L 100.0100, L500.2500 ####[facility] [address] [place], [address] Eosinophils/100 WBC (Bld) 1.8 % Normal 0-5 [facility] Comment on above: Performed By: #### L 100.0100, L500.2500 ####[facility] [address] [place], [address] Erythrocyte distribution width (RBC) [Ratio] 12.2 % Normal 11.6-14.6 [facility] Comment on above: Performed By: #### L 100.0100, L500.2500 ####[facility] [address] [place], [address] Hematocrit (Bld) [Volume fraction] 32.9 % Low 37-47 [facility] Comment on above: Performed By: #### L 100.0100, L500.2500 ####[facility] [address] [place], [address] Hemoglobin (Bld) [Mass/Vol] 10.7 g/dL Low 12.0-15.0 [facility] Comment on above: Performed By: #### L 100.0100, L500.2500 ####[facility] [address] [place], [address] IG% 0.400 Normal 0.0-0.9 [facility] Comment on above: Result Comment: IG% - Immature Granulocytes (promyelocytes, myelocytes andmetamyelocytes) > 1% indicates that a LEFT SHIFT is Present. Performed By: #### L 100.0100, L500.2500 ####[facility] [address] [place], [address] Lymphocytes/100 WBC (Bld) 26.0 % Normal 19-41 [facility] Comment on above: Performed By: #### L 100.0100, L500.2500 ####[facility] [address] [place], [address] MCH (RBC) [Entitic mass] 30.1 pg Normal 27.0-32.0 [facility] Comment on above: Performed By: #### L 100.0100, L500.2500 ####[facility] [address] [place], [address] MCHC (RBC) [Mass/Vol] 32.5 g/dL Normal 32-36 [facility] Comment on above: Performed By: #### L 100.0100, L500.2500 ####[facility] [address] [place], [address] MCV (RBC) [Entitic vol] 92.7 fL Normal 81-99 [facility] Comment on above: Performed By: #### L 100.0100, L500.2500 ####[facility] [address] [place], [address] Monocytes/100 WBC (Bld) 7.1 % Normal 0-10 [facility] Comment on above: Performed By: #### L 100.0100, L500.2500 ####[facility] [address] [place], [address] Neutrophils/100 WBC (Bld) 64.6 % Normal 47-70 [facility] Comment on above: Performed By: #### L 100.0100, L500.2500 ####[facility] [address] [place], [address] Nucleated RBC (Bld) [#/Vol] 0 10*3/uL Normal 0-5 [facility] Comment on above: Performed By: #### L 100.0100, L500.2500 ####[facility] [address] [place], [address] Platelet mean volume (Bld) [Entitic vol] 9.9 fL Normal 6.2-12.0 [facility] Comment on above: Performed By: #### L 100.0100, L500.2500 ####[facility] [address] [place], [address] Platelets (Bld) [#/Vol] 201 10*3/uL Normal 150-450 [facility] Comment on above: Performed By: #### L 100.0100, L500.2500 ####[facility] [address] [place], [address] RBC (Bld) [#/Vol] 3.55 10*6/uL Low 4.2-5.4 [facility] Comment on above: Performed By: #### L 100.0100, L500.2500 ####[facility] [address] [place], [address] RDW SD 41.7 fl Normal 35.1-43.9 [facility] Comment on above: Performed By: #### L 100.0100, L500.2500 ####[facility] [address] [place], [address] WBC (Bld) [#/Vol] 9.5 10*3/uL Normal 4.4-11.0 [facility] Comment on above: Performed By: #### L 100.0100, L500.2500 ####[facility] [address] [place], [address] Discharge Instructionon Discharge Instruction Normal [facility] Basic Metabolic Profile (BMP )on 09-19-2023 BUN/CRE 41.9 RATIO High 10-20 [facility] Comment on above: Performed By: #### L 500.2500, L100.0100 ####[facility] [address] [place], [address] CA,Total 8.9 mg/dL Normal 8.5-10.1 [facility] Comment on above: Performed By: #### L 500.2500, L100.0100 ####[facility] [address] [place], [address] Chloride [Moles/Vol] 109 mmol/L High 98-107 [facility] Comment on above: Performed By: #### L 500.2500, L100.0100 ####[facility] [address] [place], [address] CO2 [Moles/Vol] 23.0 mmol/L Normal 21.0-32.0 [facility] Comment on above: Performed By: #### L 500.2500, L100.0100 ####[facility] [address] [place], [address] Creatinine [Mass/Vol] 1.48 mg/dL High 0.55-1.02 [facility] Comment on above: Result Comment: The validity of the calculated GFR GFRAA in patients over70 years has not been determined. Clinical correlation isessential. Performed By: #### L 500.2500, L100.0100 ####[facility] [address] [place], [address] ECRCL 32.28 ml/min Normal [facility] Comment on above: Performed By: #### L 500.2500, L100.0100 ####[facility] [address] [place], [address] EST GFR - AA 45 mL/min Low >60 [facility] Comment on above: Result Comment: Afri can Croatian GFR Calc Performed By: #### L 500.2500, L100.0100 ####[facility] [address] [place], [address] GAP 7 Normal 5-15 [facility] Comment on above: Performed By: #### L 500.2500, L100.0100 ####[facility] [address] [place], [address] GFR/1.73 sq M.predicted among non-blacks MDRD (S/P/Bld) [Vol rate/Area] 37 mL/min/{1.73_m2} Low >60 [facility] Comment on above: Result Comment: Non- GFR Calc Performed By: #### L 500.2500, L100.0100 ####[facility] [address] [place], [address] Glucose [Mass/Vol] 186 mg/dL High 74-106 [facility] Comment on above: Result Comment: Fast ing Glucose result greater than or equal to 126 mg/dLsuggests DIABETES MELLITUS per A.D.A. criteria. Performed By: #### L 500.2500, L100.0100 ####[facility] [address] [place], [address] Potassium [Moles/Vol] 3.8 mmol/L Normal 3.5-5.1 [facility] Comment on above: Performed By: #### L 500.2500, L100.0100 ####[facility] [address] [place], [address] Sodium [Moles/Vol] 139 mmol/L Normal 136-145 [facility] Comment on above: Performed By: #### L 500.2500, L100.0100 ####[facility] [address] [place], [address] Urea nitrogen [Mass/Vol] 62 mg/dL High 7-18 [facility] Comment on above: Performed By: #### L 500.2500, L100.0100 ####[facility] [address] [place], [address] Bedside Glucoseon 09-19-2023 FINGERSTICK GLU 157 mg/dL High 74-106 [facility] Comment on above: Result Comment: GERALDO GEMENT OF PATIENT CARE PER NURSING PROTOCOL Performed By: #### L 501.080 ####[facility] [address] [place], [address] FINGERSTICK GLU 148 mg/dL High 74-106 [facility] Comment on above: Result Comment: GERALDO GEMENT OF PATIENT CARE PER NURSING PROTOCOL Performed By: #### L 501.080 ####[facility] [address] [place], [address] FINGERSTICK GLU 157 mg/dL High 74-106 [facility] Comment on above: Result Comment: GERALDO GEMENT OF PATIENT CARE PER NURSING PROTOCOL Performed By: #### L 501.080 ####[facility] [address] [place], [address] CBC W/Diff, Automatedon 08-0 7-2023 Absolute Lymph 2.75 X10 3/uL Normal 0.83-4.51 [facility] Comment on above: Performed By: #### L 500.2500, L100.0100 ####[facility] [address] [place], [address] Absolute Neut 12.1 X10 3/uL High 2.0-7.7 [facility] Comment on above: Performed By: #### L 500.2500, L100.0100 ####[facility] [address] [place], [address] Basophils/100 WBC (Bld) 0.3 % Normal 0-1 [facility] Comment on above: Performed By: #### L 500.2500, L100.0100 ####[facility] [address] [place], [address] Eosinophils/100 WBC (Bld) 0.5 % Normal 0-5 [facility] Comment on above: Performed By: #### L 500.2500, L100.0100 ####[facility] [address] [place], [address] Erythrocyte distribution width (RBC) [Ratio] 12.3 % Normal 11.6-14.6 [facility] Comment on above: Performed By: #### L 500.2500, L100.0100 ####[facility] [address] [place], [address] Hematocrit (Bld) [Volume fraction] 36.7 % Low 37-47 [facility] Comment on above: Performed By: #### L 500.2500, L100.0100 ####[facility] [address] [place], [address] Hemoglobin (Bld) [Mass/Vol] 11.8 g/dL Low 12.0-15.0 [facility] Comment on above: Performed By: #### L 500.2500, L100.0100 ####[facility] [address] [place], [address] IG% 1.100 High 0.0-0.9 [facility] Comment on above: Result Comment: IG% - Immature Granulocytes (promyelocytes, myelocytes andmetamyelocytes) > 1% indicates that a LEFT SHIFT is Present. Performed By: #### L 500.2500, L100.0100 ####[facility] [address] [place], [address] Lymphocytes/100 WBC (Bld) 17.0 % Low 19-41 [facility] Comment on above: Performed By: #### L 500.2500, L100.0100 ####[facility] [address] [place], [address] MCH (RBC) [Entitic mass] 29.4 pg Normal 27.0-32.0 [facility] Comment on above: Performed By: #### L 500.2500, L100.0100 ####[facility] [address] [place], [address] MCHC (RBC) [Mass/Vol] 32.2 g/dL Normal 32-36 [facility] Comment on above: Performed By: #### L 500.2500, L100.0100 ####[facility] [address] [place], [address] MCV (RBC) [Entitic vol] 91.3 fL Normal 81-99 [facility] Comment on above: Performed By: #### L 500.2500, L100.0100 ####[facility] [address] [place], [address] Monocytes/100 WBC (Bld) 6.2 % Normal 0-10 [facility] Comment on above: Performed By: #### L 500.2500, L100.0100 ####[facility] [address] [place], [address] Neutrophils/100 WBC (Bld) 74.9 % High 47-70 [facility] Comment on above: Performed By: #### L 500.2500, L100.0100 ####[facility] [address] [place], [address] Nucleated RBC (Bld) [#/Vol] 0.1 10*3/uL Normal 0-5 [facility] Comment on above: Performed By: #### L 500.2500, L100.0100 ####[facility] [address] [place], [address] Platelet mean volume (Bld) [Entitic vol] 10.1 fL Normal 6.2-12.0 [facility] Comment on above: Performed By: #### L 500.2500, L100.0100 ####[facility] [address] [place], [address] Platelets (Bld) [#/Vol] 237 10*3/uL Normal 150-450 [facility] Comment on above: Performed By: #### L 500.2500, L100.0100 ####[facility] [address] [place], [address] RBC (Bld) [#/Vol] 4.02 10*6/uL Low 4.2-5.4 [facility] Comment on above: Performed By: #### L 500.2500, L100.0100 ####[facility] [address] [place], [address] RDW SD 40.7 fl Normal 35.1-43.9 [facility] Comment on above: Performed By: #### L 500.2500, L100.0100 ####[facility] [address] [place], [address] WBC (Bld) [#/Vol] 16.1 10*3/uL High 4.4-11.0 [facility] Comment on above: Performed By: #### L 500.2500, L100.0100 ####[facility] [address] [place], [address] Consultation - Nephrologyon 09-19-2023 Consultation - Nephrology Normal [facility] 12 Lead EKGon 09-18-2023 12 Lead EKG Normal [facility] 12 Lead EKG Normal [facility] Basic Metabolic Profile (BMP )on 09-18-2023 BUN/CRE 38.7 RATIO High 10-20 [facility] Comment on above: Performed By: #### L 100.0100, L501.5200, L500.2500 ####[facility] [address] [place], [address] CA,Total 8.5 mg/dL Normal 8.5-10.1 [facility] Comment on above: Performed By: #### L 100.0100, L501.5200, L500.2500 ####[facility] [address] [place], [address] Chloride [Moles/Vol] 106 mmol/L Normal 98-107 [facility] Comment on above: Performed By: #### L 100.0100, L501.5200, L500.2500 ####[facility] [address] [place], [address] CO2 [Moles/Vol] 18.0 mmol/L Low 21.0-32.0 [facility] Comment on above: Performed By: #### L 100.0100, L501.5200, L500.2500 ####[facility] [address] [place], [address] Creatinine [Mass/Vol] 1.37 mg/dL High 0.55-1.02 [facility] Comment on above: Result Comment: The validity of the calculated GFR GFRAA in patients over70 years has not been determined. Clinical correlation isessential. Performed By: #### L 100.0100, L501.5200, L500.2500 ####[facility] [address] [place], [address] ECRCL 34.87 ml/min Normal [facility] Comment on above: Performed By: #### L 100.0100, L501.5200, L500.2500 ####[facility] [address] [place], [address] EST GFR - AA 49 mL/min Low >60 [facility] Comment on above: Result Comment: Afri can Croatian GFR Calc Performed By: #### L 100.0100, L501.5200, L500.2500 ####[facility] [address] [place], [address] GAP 12 Normal 5-15 [facility] Comment on above: Performed By: #### L 100.0100, L501.5200, L500.2500 ####[facility] [address] [place], [address] GFR/1.73 sq M.predicted among non-blacks MDRD (S/P/Bld) [Vol rate/Area] 41 mL/min/{1.73_m2} Low >60 [facility] Comment on above: Result Comment: Non- GFR Calc Performed By: #### L 100.0100, L501.5200, L500.2500 ####[facility] [address] [place], [address] Glucose [Mass/Vol] 319 mg/dL High 74-106 [facility] Comment on above: Result Comment: Gluc ose result greater than or equal to 200 mg/dLsuggests DIABETES MELLITUS per A.D.A. criteria. Performed By: #### L 100.0100, L501.5200, L500.2500 ####[facility] [address] [place], [address] Potassium [Moles/Vol] 3.9 mmol/L Normal 3.5-5.1 [facility] Comment on above: Performed By: #### L 100.0100, L501.5200, L500.2500 ####[facility] [address] [place], [address] Sodium [Moles/Vol] 136 mmol/L Normal 136-145 [facility] Comment on above: Performed By: #### L 100.0100, L501.5200, L500.2500 ####[facility] [address] [place], [address] Urea nitrogen [Mass/Vol] 53 mg/dL High 7-18 [facility] Comment on above: Performed By: #### L 100.0100, L501.5200, L500.2500 ####[facility] [address] [place], [address] Bedside Glucoseon 09-18-2023 FINGERSTICK GLU 278 mg/dL High 74-106 [facility] Comment on above: Result Comment: GERALDO SHY OF PATIENT CARE PER NURSING PROTOCOL Performed By: #### L 501.080 ####[facility] [address] [place], [address] FINGERSTICK GLU 265 mg/dL High 74-106 [facility] Comment on above: Result Comment: GERALDO GEMENT OF PATIENT CARE PER NURSING PROTOCOL Performed By: #### L 501.080 ####[facility] [address] [place], [address] FINGERSTICK GLU 371 mg/dL High 74-106 [facility] Comment on above: Result Comment: GERALDO GEMENT OF PATIENT CARE PER NURSING PROTOCOL Performed By: #### L 501.080 ####[facility] [address] [place], [address] CBC W/Diff, Automatedon 08-0 -2023 Absolute Lymph 1.77 X10 3/uL Normal 0.83-4.51 [facility] Comment on above: Performed By: #### L 100.0100, L501.5200, L500.2500 ####[facility] [address] [place], [address] Absolute Neut 23.3 X10 3/uL High 2.0-7.7 [facility] Comment on above: Performed By: #### L 100.0100, L501.5200, L500.2500 ####[facility] [address] [place], [address] Basophils/100 WBC (Bld) 0.2 % Normal 0-1 [facility] Comment on above: Performed By: #### L 100.0100, L501.5200, L500.2500 ####[facility] [address] [place], [address] Eosinophils/100 WBC (Bld) 0.0 % Normal 0-5 [facility] Comment on above: Performed By: #### L 100.0100, L501.5200, L500.2500 ####[facility] [address] [place], [address] Erythrocyte distribution width (RBC) [Ratio] 12.3 % Normal 11.6-14.6 [facility] Comment on above: Performed By: #### L 100.0100, L501.5200, L500.2500 ####[facility] [address] [place], [address] Hematocrit (Bld) [Volume fraction] 41.6 % Normal 37-47 [facility] Comment on above: Performed By: #### L 100.0100, L501.5200, L500.2500 ####[facility] [address] [place], [address] Hemoglobin (Bld) [Mass/Vol] 13.2 g/dL Normal 12.0-15.0 [facility] Comment on above: Performed By: #### L 100.0100, L501.5200, L500.2500 ####[facility] [address] [place], [address] IG% 0.700 Normal 0.0-0.9 [facility] Comment on above: Result Comment: IG% - Immature Granulocytes (promyelocytes, myelocytes andmetamyelocytes) > 1% indicates that a LEFT SHIFT is Present. Performed By: #### L 100.0100, L501.5200, L500.2500 ####[facility] [address] [place], [address] Lymphocytes/100 WBC (Bld) 6.6 % Low 19-41 [facility] Comment on above: Performed By: #### L 100.0100, L501.5200, L500.2500 ####[facility] [address] [place], [address] MCH (RBC) [Entitic mass] 29.3 pg Normal 27.0-32.0 [facility] Comment on above: Performed By: #### L 100.0100, L501.5200, L500.2500 ####[facility] [address] [place], [address] MCHC (RBC) [Mass/Vol] 31.7 g/dL Low 32-36 [facility] Comment on above: Performed By: #### L 100.0100, L501.5200, L500.2500 ####[facility] [address] [place], [address] MCV (RBC) [Entitic vol] 92.4 fL Normal 81-99 [facility] Comment on above: Performed By: #### L 100.0100, L501.5200, L500.2500 ####[facility] [address] [place], [address] Monocytes/100 WBC (Bld) 5.2 % Normal 0-10 [facility] Comment on above: Performed By: #### L 100.0100, L501.5200, L500.2500 ####[facility] [address] [place], [address] Neutrophils/100 WBC (Bld) 87.3 % High 47-70 [facility] Comment on above: Performed By: #### L 100.0100, L501.5200, L500.2500 ####[facility] [address] [place], [address] Nucleated RBC (Bld) [#/Vol] 0 10*3/uL Normal 0-5 [facility] Comment on above: Performed By: #### L 100.0100, L501.5200, L500.2500 ####[facility] [address] [place], [address] Platelet mean volume (Bld) [Entitic vol] 9.7 fL Normal 6.2-12.0 [facility] Comment on above: Performed By: #### L 100.0100, L501.5200, L500.2500 ####[facility] [address] [place], [address] Platelets (Bld) [#/Vol] 325 10*3/uL Normal 150-450 [facility] Comment on above: Performed By: #### L 100.0100, L501.5200, L500.2500 ####[facility] [address] [place], [address] RBC (Bld) [#/Vol] 4.50 10*6/uL Normal 4.2-5.4 [facility] Comment on above: Performed By: #### L 100.0100, L501.5200, L500.2500 ####[facility] [address] [place], [address] RDW SD 41.5 fl Normal 35.1-43.9 [facility] Comment on above: Performed By: #### L 100.0100, L501.5200, L500.2500 ####[facility] [address] [place], [address] WBC (Bld) [#/Vol] 26.7 10*3/uL High 4.4-11.0 [facility] Comment on above: Performed By: #### L 100.0100, L501.5200, L500.2500 ####[facility] [address] [place], [address] Magnesiumon 09-18-2023 Magnesium [Mass/Vol] 2.0 mg/dL Normal 1.6-2.6 [facility] Comment on above: Performed By: #### L 100.0100, L501.5200, L500.2500 ####[facility] [address] [place], [address] 12 Lead EKGon 09-17-2023 12 Lead EKG Normal [facility] Basic Metabolic Profile (BMP )on 09-17-2023 BUN/CRE 42.3 RATIO High 10-20 [facility] Comment on above: Performed By: #### L 500.2500, L100.0100, L501.9985, L500.4100 ####[facility] [address] [place], [address] CA,Total 9.7 mg/dL Normal 8.5-10.1 [facility] Comment on above: Performed By: #### L 500.2500, L100.0100, L501.9985, L500.4100 ####[facility] [address] [place], [address] Chloride [Moles/Vol] 108 mmol/L High 98-107 [facility] Comment on above: Performed By: #### L 500.2500, L100.0100, L501.9985, L500.4100 ####[facility] [address] [place], [address] CO2 [Moles/Vol] 17.0 mmol/L Low 21.0-32.0 [facility] Comment on above: Performed By: #### L 500.2500, L100.0100, L501.9985, L500.4100 ####[facility] [address] [place], [address] Creatinine [Mass/Vol] 1.04 mg/dL High 0.55-1.02 [facility] Comment on above: Result Comment: The validity of the calculated GFR GFRAA in patients over70 years has not been determined. Clinical correlation isessential. Performed By: #### L 500.2500, L100.0100, L501.9985, L500.4100 ####[facility] [address] [place], [address] ECRCL 45.94 ml/min Normal [facility] Comment on above: Performed By: #### L 500.2500, L100.0100, L501.9985, L500.4100 ####[facility] [address] [place], [address] EST GFR - AA 67 mL/min Normal >60 [facility] Comment on above: Result Comment: Afri can [place] GFR Calc Performed By: #### L 500.2500, L100.0100, L501.9985, L500.4100 ####[facility] [facility] [address] [place], [address] GAP 16 High 5-15 [facility] Comment on above: Performed By: #### L 500.2500, L100.0100, L501.9985, L500.4100 ####[facility] [address] [place], [address] GFR/1.73 sq M.predicted among non-blacks MDRD (S/P/Bld) [Vol rate/Area] 56 mL/min/{1.73_m2} Low >60 [facility] Comment on above: Result Comment: Non- GFR Calc Performed By: #### L 500.2500, L100.0100, L501.9985, L500.4100 ####[facility] [address] [place], [address] Glucose [Mass/Vol] 270 mg/dL High 74-106 [facility] Comment on above: Result Comment: Gluc ose result greater than or equal to 200 mg/dLsuggests DIABETES MELLITUS per A.D.A. criteria. Performed By: #### L 500.2500, L100.0100, L501.9985, L500.4100 ####[facility] [address] [place], [address] Potassium [Moles/Vol] 4.8 mmol/L Normal 3.5-5.1 [facility] Comment on above: Performed By: #### L 500.2500, L100.0100, L501.9985, L500.4100 ####[facility] [address] [place], [address] Sodium [Moles/Vol] 141 mmol/L Normal 136-145 [facility] Comment on above: Performed By: #### L 500.2500, L100.0100, L501.9985, L500.4100 ####[facility] [address] [place], [address] Urea nitrogen [Mass/Vol] 44 mg/dL High 7-18 [facility] Comment on above: Performed By: #### L 500.2500, L100.0100, L501.9985, L500.4100 ####[facility] [address] [place], [address] Bedside Glucoseon 09-16-2023 FINGERSTICK GLU 323 mg/dL High 74-106 [facility] Comment on above: Result Comment: GERALDO GEMENT OF PATIENT CARE PER NURSING PROTOCOL Performed By: #### L 501.080 ####[facility] [address] [place], [address] FINGERSTICK GLU 257 mg/dL High 74-106 [facility] Comment on above: Result Comment: GERALDO GEMENT OF PATIENT CARE PER NURSING PROTOCOL Performed By: #### L 501.080 ####[facility] [address] [place], [address] FINGERSTICK GLU 264 mg/dL High 74-106 [facility] Comment on above: Result Comment: GERALDO GEMENT OF PATIENT CARE PER NURSING PROTOCOL Performed By: #### L 501.080 ####[facility] [address] [place], [address] CBC W/Diff, Automatedon 08-0 Absolute Lymph 0.75 X10 3/uL Low 0.83-4.51 [facility] Comment on above: Performed By: #### L 500.2500, L100.0100, L501.9985, L500.4100 ####[facility] [address] [place], [address] Absolute Neut 18.1 X10 3/uL High 2.0-7.7 [facility] Comment on above: Performed By: #### L 500.2500, L100.0100, L501.9985, L500.4100 ####[facility] [address] [place], [address] Basophils/100 WBC (Bld) 0.1 % Normal 0-1 [facility] Comment on above: Performed By: #### L 500.2500, L100.0100, L501.9985, L500.4100 ####[facility] [address] [place], [address] Eosinophils/100 WBC (Bld) 0.0 % Normal 0-5 [facility] Comment on above: Performed By: #### L 500.2500, L100.0100, L501.9985, L500.4100 ####[facility] [address] [place], [address] Erythrocyte distribution width (RBC) [Ratio] 12.0 % Normal 11.6-14.6 [facility] Comment on above: Performed By: #### L 500.2500, L100.0100, L501.9985, L500.4100 ####[facility] [address] [place], [address] Hematocrit (Bld) [Volume fraction] 44.1 % Normal 37-47 [facility] Comment on above: Performed By: #### L 500.2500, L100.0100, L501.9985, L500.4100 ####[facility] [address] [place], [address] Hemoglobin (Bld) [Mass/Vol] 13.9 g/dL Normal 12.0-15.0 [facility] Comment on above: Performed By: #### L 500.2500, L100.0100, L501.9985, L500.4100 ####[facility] [address] [place], [address] IG% 0.600 Normal 0.0-0.9 [facility] Comment on above: Result Comment: IG% - Immature Granulocytes (promyelocytes, myelocytes andmetamyelocytes) > 1% indicates that a LEFT SHIFT is Present. Performed By: #### L 500.2500, L100.0100, L501.9985, L500.4100 ####[facility] [address] [place], [address] Lymphocytes/100 WBC (Bld) 3.8 % Low 19-41 [facility] Comment on above: Performed By: #### L 500.2500, L100.0100, L501.9985, L500.4100 ####[facility] [address] [place], [address] MCH (RBC) [Entitic mass] 29.1 pg Normal 27.0-32.0 [facility] Comment on above: Performed By: #### L 500.2500, L100.0100, L501.9985, L500.4100 ####[facility] [address] [place], [address] MCHC (RBC) [Mass/Vol] 31.5 g/dL Low 32-36 [facility] Comment on above: Performed By: #### L 500.2500, L100.0100, L501.9985, L500.4100 ####[facility] [address] [place], [address] MCV (RBC) [Entitic vol] 92.3 fL Normal 81-99 [facility] Comment on above: Performed By: #### L 500.2500, L100.0100, L501.9985, L500.4100 ####[facility] [address] [place], [address] Monocytes/100 WBC (Bld) 3.4 % Normal 0-10 [facility] Comment on above: Performed By: #### L 500.2500, L100.0100, L501.9985, L500.4100 ####[facility] [address] [place], [address] Neutrophils/100 WBC (Bld) 92.1 % High 47-70 [facility] Comment on above: Performed By: #### L 500.2500, L100.0100, L501.9985, L500.4100 ####[facility] [address] [place], [address] Nucleated RBC (Bld) [#/Vol] 0 10*3/uL Normal 0-5 [facility] Comment on above: Performed By: #### L 500.2500, L100.0100, L501.9985, L500.4100 ####[facility] [address] [place], [address] Platelet mean volume (Bld) [Entitic vol] 9.8 fL Normal 6.2-12.0 [facility] Comment on above: Performed By: #### L 500.2500, L100.0100, L501.9985, L500.4100 ####[facility] [address] [place], [address] Platelets (Bld) [#/Vol] 377 10*3/uL Normal 150-450 [facility] Comment on above: Performed By: #### L 500.2500, L100.0100, L501.9985, L500.4100 ####[facility] [address] [place], [address] RBC (Bld) [#/Vol] 4.78 10*6/uL Normal 4.2-5.4 [facility] Comment on above: Performed By: #### L 500.2500, L100.0100, L501.9985, L500.4100 ####[facility] [address] [place], [address] RDW SD 40.9 fl Normal 35.1-43.9 [facility] Comment on above: Performed By: #### L 500.2500, L100.0100, L501.9985, L500.4100 ####[facility] [address] [place], [address] WBC (Bld) [#/Vol] 19.6 10*3/uL High 4.4-11.0 [facility] Comment on above: Performed By: #### L 500.2500, L100.0100, L501.9985, L500.4100 ####[facility] [address] [place], [address] Cardiac Cath Diagnosticon Cardiac Cath Diagnostic Normal [facility] Consultation - Cardiologyon 09-17-2023 Consultation - Cardiology Normal [facility] Echo Complete W/ Contraston 09-17-2023 Echo Complete W/ Contrast Normal [facility] H AND P Exam - Hospitaliston 09-17-2023 H&P Exam - Hospitalist Normal [facility] Hemoglobin A1con 09-17-2023 HbA1c (Bld) [Mass fraction] 4.9 % Normal 3.8-5.6 [facility] Comment on above: Result Comment: Norm al < 5.7 % Prediabetic 5.7 - 6.4 % Diabetic >or= 6.5 % Please note range changes. Performed By: #### L 500.2500, L100.0100, L501.9985, L500.4100 ####[facility] [address] [place], [address] L501.4020on 09-17-2023 TROPONIN-I HS 4278 pg/mL Invalid Interpretation Code 3.0-54.0 [facility] Comment on above: Order Comment: 'TROP ' Serial specimen #1, #2 or #3: 3 Result Comment: Crit ical Result(s) Called at: 05:26:29 09/17/2023 by: Sachin. to Nilda VILLASENOR [facility]U. Results read back by same. Please Note: New Test Units and Gender Specific Reference Ranges. For more information see Policy Stat Procedure [place] High Sensitivity Troponin (TNIH) and attachments. Performed By: #### L 501.4020 ####[facility] [address] [place], [place], [address] TROPONIN-I HS 2289 pg/mL Invalid Interpretation Code 3.0-54.0 [facility] Comment on above: Order Comment: 'TROP ' Serial specimen #1, #2 or #3: 2 Result Comment: Crit ical Result(s) Called at: 01:13:21 09/17/2023 by: Sachin. to Delvis [facility]. Results read back by same. Please Note: New Test Units and Gender Specific Reference Ranges. For more information see Policy Stat Procedure [place] High Sensitivity Troponin (TNIH) and attachments. Performed By: #### L 501.4020 ####[facility] [address] [place], [address] Lactic Acidon 09-17-2023 Lactate [Moles/Vol] 2.7 mmol/L Invalid Interpretation Code 0.4-1.9 [facility] Comment on above: Result Comment: Crit ical Result(s) Called at: 05:26:29 09/17/2023 by: Sachin. to Nilda VILLASENOR [facility]U. Results read back by same. Performed By: #### L 503.6005 ####[facility] [address] [place], [address] Lactate [Moles/Vol] 4.4 mmol/L Invalid Interpretation Code 0.4-1.9 [facility] Comment on above: Order Comment: Y Result Comment: Crit ical Result(s) Called at: 01:41:16 09/17/2023 by: to Yovanny villasenor ed. Results read back by same. Performed By: #### L 503.6005 ####[facility] [address] [place], [place], [address] Lipid Profileon 09-17-2023 Cholesterol [Mass/Vol] 151 mg/dL Normal 200 [facility] Comment on above: Result Comment: <200 mg/dL Desirable 200-240 mg/dL Borderline >240 mg/dL High Risk Performed By: #### L 500.2500, L100.0100, L501.9985, L500.4100 ####[facility] [address] [place], [address] Cholesterol in HDL [Mass/Vol] 47 mg/dL Normal [facility] Comment on above: Result Comment: The drugs N-Acetylcysteine and Metamizole may falselydepress this assay. Reference Range HDL <40 mg/dL Low HDL Cholesterol HDL >or= 60 mg/dL High HDL Cholesterol Performed By: #### L 500.2500, L100.0100, L501.9985, L500.4100 ####[facility] [address] [place], [address] Cholesterol in LDL [Mass/Vol] 87 mg/dL Normal 0-130 [facility] Comment on above: Performed By: #### L 500.2500, L100.0100, L501.9985, L500.4100 ####[facility] [address] [place], [address] Cholesterol in VLDL [Mass/Vol] 17 mg/dL Normal 5-40 [facility] Comment on above: Performed By: #### L 500.2500, L100.0100, L501.9985, L500.4100 ####[facility] [address] [place], [address] Triglyceride [Mass/Vol] 83 mg/dL Normal [facility] Comment on above: Result Comment: The drugs N-Acetylcysteine and Metamizole may falselydepress this assay.Serum Triglycerides Reference Interval Normal <150 mg/dL Borderline high 150 - 199 mg/dL High 200 - 499 mg/dL Very High > or = 500 mg/dL Performed By: #### L 500.2500, L100.0100, L501.9985, L500.4100 ####[facility] [address] [place], [address] Partial Thromboplast Timeon 09-17-2023 aPTT Coag (Bld) [Time] 52.1 s High 24.1-36.2 [facility] Comment on above: Performed By: #### L 300.4310 ####[facility] [address] [place], [address] aPTT Coag (Bld) [Time] 25.7 s Normal 24.1-36.2 [facility] Comment on above: Performed By: #### L 300.3900, L300.4310 ####[facility] [address] [place], [address] Prothrombin Time w/INRon INR Coag (PPP) [Relative time] 1.1 {INR} Normal [facility] Comment on above: Performed By: #### L 300.3900, L300.4310 ####[facility] [address] [place], [address] PT Coag (PPP) [Time] 14.6 s Normal 11.7-14.9 [facility] Comment on above: Performed By: #### L 300.3900, L300.4310 ####[facility] [address] [place], [address] Urinalysis, Completeon 09-16 AMORPHOUS 1+ Normal [facility] Comment on above: Order Comment: COLLE CTOR TO SPECIFY Performed By: #### L 400.0001 ####[facility] [address] [place], [address] BACTERIA 0 SEEN Normal None Seen [facility] Comment on above: Order Comment: COLLE CTOR TO SPECIFY Performed By: #### L 400.0001 ####[facility] [address] [place], [address] EPI,SQUAMOUS 0 SEEN Normal 5-10 [facility] Comment on above: Order Comment: COLLE CTOR TO SPECIFY Performed By: #### L 400.0001 ####[facility] [address] [place], [address] Mucus Ql (Urine sed) 0 SEEN Normal [facility] Comment on above: Order Comment: COLLE CTOR TO SPECIFY Performed By: #### L 400.0001 ####[facility] [address] [place], [address] RBC 0 SEEN Normal 0-5 [facility] Comment on above: Order Comment: DAYAN CTOR TO SPECIFY Performed By: #### L 400.0001 ####[facility] [address] [place], [address] WBC 0 SEEN Normal 0-5 [facility] Comment on above: Order Comment: DAYAN CTOR TO SPECIFY Performed By: #### L 400.0001 ####[facility] [address] [place], [address] Brain/Head without Contrasto n 09-16-2023 Brain/Head without Contrast Normal [facility] CBC W/Diff, Automatedon 08-0 -2023 Absolute Lymph 2.11 X10 3/uL Normal 0.83-4.51 [facility] Comment on above: Performed By: #### L 500.4050, L100.0100 ####[facility] [address] [place], [address] Absolute Neut 12.7 X10 3/uL High 2.0-7.7 [facility] Comment on above: Performed By: #### L 500.4050, L100.0100 ####[facility] [address] [place], [address] Basophils/100 WBC (Bld) 0.3 % Normal 0-1 [facility] Comment on above: Performed By: #### L 500.4050, L100.0100 ####[facility] [address] [place], [address] Eosinophils/100 WBC (Bld) 1.0 % Normal 0-5 [facility] Comment on above: Performed By: #### L 500.4050, L100.0100 ####[facility] [address] [place], [address] Erythrocyte distribution width (RBC) [Ratio] 11.8 % Normal 11.6-14.6 [facility] Comment on above: Performed By: #### L 500.4050, L100.0100 ####[facility] [address] [place], [address] Hematocrit (Bld) [Volume fraction] 46.5 % Normal 37-47 [facility] Comment on above: Performed By: #### L 500.4050, L100.0100 ####[facility] [address] [place], [address] Hemoglobin (Bld) [Mass/Vol] 14.8 g/dL Normal 12.0-15.0 [facility] Comment on above: Performed By: #### L 500.4050, L100.0100 ####[facility] [address] [place], [address] IG% 0.400 Normal 0.0-0.9 [facility] Comment on above: Result Comment: IG% - Immature Granulocytes (promyelocytes, myelocytes andmetamyelocytes) > 1% indicates that a LEFT SHIFT is Present. Performed By: #### L 500.4050, L100.0100 ####[facility] [address] [place], [address] Lymphocytes/100 WBC (Bld) 13.3 % Low 19-41 [facility] Comment on above: Performed By: #### L 500.4050, L100.0100 ####[facility] [address] [place], [address] MCH (RBC) [Entitic mass] 29.7 pg Normal 27.0-32.0 [facility] Comment on above: Performed By: #### L 500.4050, L100.0100 ####[facility] [address] [place], [address] MCHC (RBC) [Mass/Vol] 31.8 g/dL Low 32-36 [facility] Comment on above: Performed By: #### L 500.4050, L100.0100 ####[facility] [address] [place], [address] MCV (RBC) [Entitic vol] 93.2 fL Normal 81-99 [facility] Comment on above: Performed By: #### L 500.4050, L100.0100 ####[facility] [address] [place], [address] Monocytes/100 WBC (Bld) 4.9 % Normal 0-10 [facility] Comment on above: Performed By: #### L 500.4050, L100.0100 ####[facility] [address] [place], [address] Neutrophils/100 WBC (Bld) 80.1 % High 47-70 [facility] Comment on above: Performed By: #### L 500.4050, L100.0100 ####[facility] [address] [place], [address] Nucleated RBC (Bld) [#/Vol] 0 10*3/uL Normal 0-5 [facility] Comment on above: Performed By: #### L 500.4050, L100.0100 ####[facility] [address] [place], [address] Platelet mean volume (Bld) [Entitic vol] 9.5 fL Normal 6.2-12.0 [facility] Comment on above: Performed By: #### L 500.4050, L100.0100 ####[facility] [address] [place], [address] Platelets (Bld) [#/Vol] 409 10*3/uL Normal 150-450 [facility] Comment on above: Performed By: #### L 500.4050, L100.0100 ####[facility] [address] [place], [address] RBC (Bld) [#/Vol] 4.99 10*6/uL Normal 4.2-5.4 [facility] Comment on above: Performed By: #### L 500.4050, L100.0100 ####[facility] [address] [place], [address] RDW SD 40.6 fl Normal 35.1-43.9 [facility] Comment on above: Performed By: #### L 500.4050, L100.0100 ####[facility] [address] [place], [address] WBC (Bld) [#/Vol] 15.8 10*3/uL High 4.4-11.0 [facility] Comment on above: Performed By: #### L 500.4050, L100.0100 ####[facility] [address] [place], [address] Chest 1 View (Portable)on Chest 1 View (Portable) Normal [facility] Comprehensive Metabolic Prof ilon 09-16-2023 Albumin [Mass/Vol] 4.1 g/dL Normal 3.2-5.0 [facility] Comment on above: Performed By: #### L 500.4050, L100.0100 ####[facility] [address] [place], [address] Albumin/Globulin [Mass ratio] 0.9 {ratio} Normal 0.9-2.4 [facility] Comment on above: Performed By: #### L 500.4050, L100.0100 ####[facility] [address] [place], [address] ALK P 92 U/L Normal 45-117 [facility] Comment on above: Performed By: #### L 500.4050, L100.0100 ####[facility] [address] [place], [address] ALT [Catalytic activity/Vol] 38 U/L Normal 13-56 [facility] Comment on above: Performed By: #### L 500.4050, L100.0100 ####[facility] [address] [place], [address] AST [Catalytic activity/Vol] 28 U/L Normal 15-37 [facility] Comment on above: Performed By: #### L 500.4050, L100.0100 ####[facility] [address] [place], [address] Bilirubin [Mass/Vol] 0.70 mg/dL Normal 0.20-1.00 [facility] Comment on above: Result Comment: For patients on eltrombopag therapy, use of Dimension [place] TBIL is not recommended. Performed By: #### L 500.4050, L100.0100 ####[facility] [address] [place], [address] BUN/CRE 29.5 RATIO High 10-20 [facility] Comment on above: Performed By: #### L 500.4050, L100.0100 ####[facility] [address] [place], [address] CA,Total 10.0 mg/dL Normal 8.5-10.1 [facility] Comment on above: Performed By: #### L 500.4050, L100.0100 ####[facility] [address] [place], [address] Chloride [Moles/Vol] 106 mmol/L Normal 98-107 [facility] Comment on above: Performed By: #### L 500.4050, L100.0100 ####[facility] [address] [place], [address] CO2 [Moles/Vol] 18.0 mmol/L Low 21.0-32.0 [facility] Comment on above: Performed By: #### L 500.4050, L100.0100 ####[facility] [address] [place], [address] Creatinine [Mass/Vol] 1.29 mg/dL High 0.55-1.02 [facility] Comment on above: Result Comment: The validity of the calculated GFR GFRAA in patients over70 years has not been determined. Clinical correlation isessential. Performed By: #### L 500.4050, L100.0100 ####[facility] [address] [place], [address] EST GFR - AA 53 mL/min Low >60 [facility] Comment on above: Result Comment: Afri can [place] GFR Calc Performed By: #### L 500.4050, L100.0100 ####[facility] [address] [place], [address] GAP 16 High 5-15 [facility] Comment on above: Performed By: #### L 500.4050, L100.0100 ####[facility] [address] [place], [address] GFR/1.73 sq M.predicted among non-blacks MDRD (S/P/Bld) [Vol rate/Area] 43 mL/min/{1.73_m2} Low >60 [facility] Comment on above: Result Comment: Non- GFR Calc Performed By: #### L 500.4050, L100.0100 ####[facility] [address] [place], [address] Globulin (S) [Mass/Vol] 4.4 g/dL High 2.2-4.2 [facility] Comment on above: Performed By: #### L 500.4050, L100.0100 ####[facility] [address] [place], [address] Glucose [Mass/Vol] 269 mg/dL High 74-106 [facility] Comment on above: Result Comment: Gluc ose result greater than or equal to 200 mg/dLsuggests DIABETES MELLITUS per A.D.A. criteria. Performed By: #### L 500.4050, L100.0100 ####[facility] [address] [place], [address] Potassium [Moles/Vol] 4.5 mmol/L Normal 3.5-5.1 [facility] Comment on above: Performed By: #### L 500.4050, L100.0100 ####[facility] [address] [place], [address] Sodium [Moles/Vol] 140 mmol/L Normal 136-145 [facility] Comment on above: Performed By: #### L 500.4050, L100.0100 ####[facility] [address] [place], [address] T PROT 8.5 g/dL High 6.4-8.2 [facility] Comment on above: Performed By: #### L 500.4050, L100.0100 ####[facility] [address] [place], [address] Urea nitrogen [Mass/Vol] 38 mg/dL High 7-18 [facility] Comment on above: Performed By: #### L 500.4050, L100.0100 ####[facility] [address] [place], [address] Emergency Department Summary on 09-16-2023 Emergency Department Summary Normal [facility] L501.4020on 09-16-2023 TROPONIN-I HS 98 pg/mL High 3.0-54.0 [facility] Comment on above: Order Comment: 'TROP ' Serial specimen #1, #2 or #3: 1 Result Comment: La aguilar Note: New Test Units and Gender Specific Reference Ranges. For more information see Policy Stat Procedure [place] High Sensitivity Troponin (TNIH) and attachments. Performed By: #### L 501.4020 ####[facility] [address] [place], [address] 36on 04-26-2023 36 Spoke to the nurse a nd informed her any medication questions needs to be answered from PCP [facility] 36 Ruthie spoke to her. Any medication questions need to go through PCP [facility] 36on 04-23-2023 36 [facility] 36on 04-20-2023 36 Rudy w/ [place] [facility] called [facility] w/ drug allergies the pt has: Oxy- codeine allergy, Oxycodone- Morphine allergy, Meloxicam- Naproxen allergy. Rudy wants to make sure its ok to give pt meds or not. Please Advise [phone]. [facility] 36 [facility] Absolute lymphocyte countOrd ered By: Anuja Murcia on 04-18-2023 Lymphocytes Auto (Unsp spec) [#/Vol] 2.09 10*3/uL 0.83-4.51 [facility] Automated lymphocyte count a s percentage of total leukocytesOrdered By: Anuja Murcia on 04-18-2023 Lymphocytes/100 WBC Auto (Unsp spec) 25.6 % 19-41 [facility] Basophil percentageOrdered B y: Anuja Murcia on 04-18-2023 Basophil percentage 12.0 g/dL 12.0-15.0 [facility] Basophil percentage 105 mg/dL 74-106 [facility] Basophil percentage 143 mmol/L 136-145 [facility] Basophil percentage 3.8 mmol/L 3.5-5.1 [facility] Basophil percentage 112 mmol/L 98-107 [facility] Basophils (Bld) [#/Vol] 8.2 10*3/uL 4.4-11.0 [facility] Basophils (Bld) [#/Vol] 5.3 10*3/uL 2.0-7.7 [facility] Basophils/100 WBC (Bld) 65.0 % 47-70 [facility] Basophils/100 WBC (Bld) 6.3 % 0-10 [facility] Basophils/100 WBC (Bld) 2.8 % 0-5 [facility] Basophils/100 WBC (Bld) 0.1 % 0-1 [facility] Chloride [Moles/Vol] 112 mmol/L 98-107 [facility] Eosinophils/100 WBC (Bld) 2.8 % 0-5 [facility] Glucose [Mass/Vol] 105 mg/dL 74-106 [facility] Comment on above: Fasting Glucose resu lt from 100 to 125 mg/dL suggests IMPAIRED HOMEOSTASIS per A.D.A. criteria. Hemoglobin (Bld) [Mass/Vol] 12.0 g/dL 12.0-15.0 [facility] Monocytes/100 WBC (Bld) 6.3 % 0-10 [facility] Neutrophils (Bld) [#/Vol] 5.3 10*3/uL 2.0-7.7 [facility] Neutrophils/100 WBC (Bld) 65.0 % 47-70 [facility] Potassium [Moles/Vol] 3.8 mmol/L 3.5-5.1 [facility] Sodium [Moles/Vol] 143 mmol/L 136-145 [facility] WBC (Bld) [#/Vol] 8.2 10*3/uL 4.4-11.0 [facility] Determination of erythrocyte mean corpuscular volume (MCV)Ordered By: Anuja Murcia on 04-18-2023 MCV (RBC) [Entitic vol] 87.2 fL 81-99 [facility] Erythrocyte distribution wid th ratioOrdered By: Anuja Murcia on 04-18-2023 Erythrocyte distribution width (RBC) [Ratio] 14.0 % 11.6-14.6 [facility] Erythrocyte distribution wid th standard deviationOrdered By: Anuja Murcia on 04-18-2023 Erythrocyte distribution width (RBC) [Entitic vol] 45.2 fL 35.1-43.9 [facility] Hematocrit Auto (Bld) [Volum e fraction]Ordered By: Anuja Murcia on 04-18-2023 Hematocrit (Bld) [Volume fraction] 37.6 % 37-47 [facility] Immature granulocytes/100 WB C Auto (Bld)Ordered By: Anuja Murcia on 04-18-2023 Immature granulocytes/100 WBC (Bld) 0.200 % 0.0-0.9 [facility] Comment on above: IG% - Immature Granu locytes (promyelocytes, myelocytes and metamyelocytes) > 1% indicates that a LEFT SHIFT is Present. Laboratory - Chemistry and C hemistry - challengeOrdered By: Anuja Murcia on 04-18-2023 CO2 [Moles/Vol] 23.0 mmol/L 21.0-32.0 [facility] Urea nitrogen/Creatinine [Mass ratio] 12.2 mg/mg 10-20 [facility] Laboratory - Hematology and Cell countsOrdered By: Anuja Murcia on 04-18-2023 MCH (RBC) [Entitic mass] 27.8 pg 27.0-32.0 [facility] MCHC (RBC) [Mass/Vol] 31.9 g/dL 32-36 [facility] Nucleated RBC/100 WBC (Bld) [Ratio] 0 % 0-5 [facility] Platelet mean volume (Bld) [Entitic vol] 9.6 fL 6.2-12.0 [facility] Platelets (Bld) [#/Vol] 230 10*3/uL 150-450 [facility] No Panel InformationOrdered By: Anuja Murcia on 04-18-2023 Estimated Creatinine Clearance Calc 67.27 ml/min [facility] Estimated GFR (MDRD) Amer 134 mL/min >60 [facility] Comment on above: GFR Calc Estimated GFR (MDRD) Non-Af Amer 111 mL/min >60 [facility] Comment on above: Non- GFR Calc 27.8 pg 27.0-32.0 [facility] 31.9 g/dL 32-36 [facility] 230 K/mm3 150-450 [facility] 9.6 fl 6.2-12.0 [facility] 0 % 0-5 [facility] 111 mL/min >60 [facility] 134 mL/min >60 [facility] 67.27 ml/min [facility] 12.2 RATIO 10-20 [facility] 23.0 mmol/L 21.0-32.0 [facility] RBC Auto (Bld) [#/Vol]Ordere d By: Anuja Murcia on 04-18-2023 RBC (Bld) [#/Vol] 4.31 10*6/uL 4.2-5.4 [facility] Serum or plasma calcium timbo urement (mass/volume)Ordered By: Anuja Murcia on 04-18-2023 Calcium [Mass/Vol] 8.6 mg/dL 8.5-10.1 [facility] Serum or plasma creatinine m easurement (mass/volume)Ordered By: Anuja Murcia on 04-18-2023 Creatinine [Mass/Vol] 0.57 mg/dL 0.55-1.02 [facility] Comment on above: The validity of the calculated GFR & GFRAA in patients over 70 years has not been determined. Clinical correlation is essential. Serum or plasma urea nitroge n measurement (mass/volume)Ordered By: Anuja Murcia on 04-18-2023 Urea nitrogen [Mass/Vol] 7 mg/dL 7-18 [facility] Thin prep Papanicolaou smear with manual screeningOrdered By: Anuja Murcia on 04-18-2023 Thin prep Papanicolaou smear with manual screening 8 5-15 [facility] Thin prep Papanicolaou smear with manual screening 115 mg/dL 74-106 [facility] Comment on above: MANAGEMENT OF PATIEN T CARE PER NURSING PROTOCOL 36on 04-17-2023 36 Normal [facility] Basophil percentageOrdered B y: Anuja Murcia on 04-17-2023 Basophil percentage 2.3 mg/dL 2.5-4.9 [facility] Laboratory - Chemistry and C hemistry - challengeOrdered By: Anuja Murcia on 04-17-2023 Magnesium [Mass/Vol] 1.5 mg/dL 1.6-2.6 [facility] No Panel InformationOrdered By: Anuja Murcia on 03-05-2024 1.5 mg/dL 1.6-2.6 [facility] Basophil percentageOrdered B y: Anuja Brown on 04-15-2023 Basophil percentage 6.3 g/dL 6.4-8.2 [facility] Basophil percentage 0.50 mg/dL 0.20-1.00 [facility] Bilirubin [Mass/Vol] 0.50 mg/dL 0.20-1.00 [facility] Comment on above: For patients on eltr ombopag therapy, use of Dimension [place] TBIL is not recommended. Protein [Mass/Vol] 6.3 g/dL 6.4-8.2 [facility] Laboratory - Chemistry and C hemistry - challengeOrdered By: Anuja Brown on 04-15-2023 Albumin/Globulin [Mass ratio] 1.0 {ratio} 0.9-2.4 [facility] ALP [Catalytic activity/Vol] 73 U/L - [facility] ALT [Catalytic activity/Vol] 14 U/L [facility] Globulin (S) [Mass/Vol] 3.2 g/dL 2.2-4.2 [facility] Lipase [Catalytic activity/Vol] 19 U/L [facility] Comment on above: Please note:LIPASE r evised reference range effective 22. New Lipase methodology. Expected to produce lower values than the previous assay method. NEW Reference Range: 13 - 75 U/L No Panel InformationOrdered By: Anuja Brown on 04-15-2023 3.2 g/dL 2.2-4.2 [facility] 1.0 RATIO 0.9-2.4 [facility] 19 U/L [facility] 73 U/L 45-117 [facility] 14 U/L [facility] Serum or plasma thyroid stim ulating hormone (TSH) measurement (units/volume)Ordered By: Anuja Brown on 04-15-2023 TSH Qn 3.89 uIU/mL 0.358-3.74 [facility] Thin prep Papanicolaou smear with manual screeningOrdered By: Anuja Brown on 04-15-2023 Thin prep Papanicolaou smear with manual screening 3.1 g/dL 3.2-5.0 [facility] Thin prep Papanicolaou smear with manual screening 12 U/L 15-37 [facility] Absolute lymphocyte countOrd ered By: Marcos Hoffman on 04-14-2023 Lymphocytes Auto (Unsp spec) [#/Vol] 1.59 10*3/uL 0.83-4.51 [facility] Assessment of wrist artery p atency prior to arterial punctureOrdered By: Tamiko Quigley on 04-14-2023 Arterial patency Wrist artery --pre arterial puncture Positive [facility] Automated lymphocyte count a s percentage of total leukocytesOrdered By: Marcos Hoffman on 04-14-2023 Lymphocytes/100 WBC Auto (Unsp spec) 8.2 % 19-41 [facility] Bacteria identified Cx Nom ( U)Ordered By: Marcos Hoffman on 04-14-2023 Culture, urine Presumptive E. coli [facility] Base excessOrdered By: Mari Quigley on 04-14-2023 Base excess Calc (BldV) [Moles/Vol] -3 mmol/L -2-2 [facility] Basophil percentageOrdered B y: Tamiko Quigley on 04-14-2023 Basophil percentage 24 mmol/L [facility] Basophils/100 WBC (Bld) 97 % 95-99 [facility] Basophil percentageOrdered B y: Marcos Hoffman on 04-14-2023 Basophil percentage 15.9 g/dL 12.0-15.0 [facility] Basophil percentage 312 mg/dL 74-106 [facility] Basophil percentage 9.1 g/dL 6.4-8.2 [facility] Basophil percentage 1.20 mg/dL 0.20-1.00 [facility] Basophil percentage 137 mmol/L 136-145 [facility] Basophil percentage 4.2 mmol/L 3.5-5.1 [facility] Basophil percentage 101 mmol/L 98-107 [facility] Basophils (Bld) [#/Vol] 19.4 10*3/uL 4.4-11.0 [facility] Basophils (Bld) [#/Vol] 17.2 10*3/uL 2.0-7.7 [facility] Basophils/100 WBC (Bld) 88.6 % 47-70 [facility] Basophils/100 WBC (Bld) 2.2 % 0-10 [facility] Basophils/100 WBC (Bld) 0.2 % 0-1 [facility] Basophil percentage 1.9 mmol/L 0.4-2.0 [facility] Lactate [Moles/Vol] 1.9 mmol/L 0.4-2.0 [facility] Basophil percentage 5-10 SEEN /hpf 0-5 [facility] Ammonia (P) [Moles/Vol] 41.0 umol/L [facility] Comment on above: Gross Hemolysis, Res ult may be falsely increased. Basophil percentage 41.0 umol/L [facility] Basophil percentageOrdered B y: Anuja Brown on 04-14-2023 Basophil percentage 182 mg/dL <200 [facility] Basophil percentage 98 mg/dL <199 [facility] Cholesterol [Mass/Vol] 182 mg/dL <200 [facility] Comment on above: <200 mg/dL Desirable 200-240 mg/dL Borderline >240 mg/dL High Risk Triglyceride [Mass/Vol] 98 mg/dL <199 [facility] Comment on above: The drugs N-Acetylcy steine and Metamizole may falsely depress this assay.Serum Triglycerides Reference Interval Normal <150 mg/dL Borderline high 150 - 199 mg/dL High 200 - 499 mg/dL Very High > or = 500 mg/dL Bilirubin Test strip Ql (U)O rdered By: Marcos Hoffman on 04-14-2023 Bilirubin Ql (U) Negative Negative [facility] Culture, urineOrdered By: Kaela Hoffman on 04-14-2023 Bacteria identified Cx Nom (U) Presumptive E. coli [facility] Determination of erythrocyte mean corpuscular volume (MCV)Ordered By: Marcos Hoffman on 04-14-2023 MCV (RBC) [Entitic vol] 86.8 fL 81-99 [facility] Direct bilirubinOrdered By: Marcos Hoffman on 04-14-2023 Bilirubin.direct [Mass/Vol] 0.17 mg/dL 0.00-0.30 [facility] Erythrocyte distribution wid th ratioOrdered By: Marcos Hoffman on 04-14-2023 Erythrocyte distribution width (RBC) [Ratio] 13.8 % 11.6-14.6 [facility] Erythrocyte distribution wid th standard deviationOrdered By: Marcos Hoffman on 04-14-2023 Erythrocyte distribution width (RBC) [Entitic vol] 44.0 fL 35.1-43.9 [facility] Hematocrit Auto (Bld) [Volum e fraction]Ordered By: Marcos Hoffman on 04-14-2023 Hematocrit (Bld) [Volume fraction] 51.3 % 37-47 [facility] Immature granulocytes/100 WB C Auto (Bld)Ordered By: Marcos Hoffman on 04-14-2023 Immature granulocytes/100 WBC (Bld) 0.600 % 0.0-0.9 [facility] Ketones Test strip Ql (U)Ord ered By: Marcos Hoffman on 04-14-2023 Ketones Ql (U) 50 mg/dl Negative [facility] Laboratory - Chemistry and C hemistry - challengeOrdered By: Anuja Brown on 04-14-2023 Cholesterol in HDL [Mass/Vol] 63 mg/dL >40 [facility] Comment on above: The drugs N-Acetylcy steine and Metamizole may falsely depress this assay. Reference Range HDL <40 mg/dL Low HDL Cholesterol HDL >or= 60 mg/dL High HDL Cholesterol Cholesterol in LDL [Mass/Vol] 99 mg/dL 0-130 [facility] Laboratory - Microbiology an d Antimicrobial susceptibilityOrdered By: Marcos Hoffman on 04-14-2023 Bacteria identified Cx Nom (Bld) No growth in 5 days. [facility] Measurement, pHOrdered By: Mary Quigley on 04-14-2023 pH (Unsp spec) 7.37 [pH] 7.35-7.45 [facility] Mucus LM Ql (Urine sed)Order ed By: Marcos Hoffman on 04-14-2023 Mucus Ql (Urine sed) 0 SEEN /hpf [facility] Nitrite Test strip Ql (U)Ord ered By: Marcos Hoffman on 04-14-2023 Nitrite Ql (U) Negative Negative [facility] No Panel InformationOrdered By: Tamiko Quigley on 04-14-2023 Arterial Blood Partial Pressure CO2 38.8 mmHg 35-45 [facility] Arterial Blood Partial Pressure O2 96 mmHG 75-100 [facility] Blood Gas Bicarbonate Actual 22.3 mmol/L 22-26 [facility] Blood Gas Oxygen Percent 2.0 [facility] Blood Gas Sample Site R [facility] Blood Gas Specimen Type ART [facility] Blood Gas Vent Mode Not entered [facility] Oxygen Delivery Device Cannula [facility] ART [facility] R [facility] Not entered [facility] Cannula [facility] 2.0 [facility] 38.8 mmHg 35-45 [facility] 96 mmHG 75-100 [facility] 22.3 mmol/L 22-26 [facility] No Panel InformationOrdered By: Anuja Brown on 04-14-2023 VLDL Cholesterol 20 mg/dL 5-40 [facility] 63 mg/dL >40 [facility] 99 mg/dL 0-130 [facility] 20 mg/dL 5-40 [facility] No Panel InformationOrdered By: Marcos Hoffman on 04-14-2023 26.9 pg 27.0-32.0 [facility] 31.0 g/dL 32-36 [facility] 366 K/mm3 150-450 [facility] 9.9 fl 6.2-12.0 [facility] 0 % 0-5 [facility] 55 mL/min >60 [facility] 67 mL/min >60 [facility] 50.55 ml/min [facility] 15.2 RATIO 10-20 [facility] 4.7 g/dL 2.2-4.2 [facility] 21 U/L 13-75 [facility] 127 U/L 45-117 [facility] 19 U/L 13-56 [facility] 24.0 mmol/L 21.0-32.0 [facility] Urine RBC 0 SEEN /hpf 0-5 [facility] 0 SEEN /hpf 0-5 [facility] Protein Test strip Ql (U)Ord ered By: Marcos Hoffman on 04-14-2023 Protein Ql (U) 500 mg/dl Negative [facility] RBC Auto (Bld) [#/Vol]Ordere d By: Marcos Hoffman on 04-14-2023 RBC (Bld) [#/Vol] 5.91 10*6/uL [facility]2-5.[facility] Serum or plasma calcium timbo urement (mass/volume)Ordered By: Marcos Hoffman on 04-14-2023 Calcium [Mass/Vol] 10.1 mg/dL 8.5-10.1 [facility] Serum or plasma creatinine m easurement (mass/volume)Ordered By: Marcos Hoffman on 04-14-2023 Creatinine [Mass/Vol] 1.05 mg/dL 0.55-1.02 [facility] Serum or plasma urea nitroge n measurement (mass/volume)Ordered By: Marcos Hoffman on 04-14-2023 Urea nitrogen [Mass/Vol] 16 mg/dL 7-18 [facility] Serum procalcitonin measurem entOrdered By: Marcos Hoffman on 04-14-2023 Procalcitonin [Mass/Vol] 0.12 ng/mL 0.00-0.09 [facility] Comment on above: A procalcitonin (PCT [...] Ql (Urine sed) 0 SEEN /hpf 5-10 [facility] Thin prep Papanicolaou smear with manual screeningOrdered By: Marcos Hoffman on 04-14-2023 Thin prep Papanicolaou smear with manual screening 4.4 g/dL 3.2-5.0 [facility] Thin prep Papanicolaou smear with manual screening 28 U/L 15-37 [facility] Thin prep Papanicolaou smear with manual screening 12 5-15 [facility] Urine blood detectionOrdered By: Marcos Hoffman on 04-14-2023 RBC Ql (U) 25 /ul Negative [facility] Urine clarityOrdered By: Augie Hoffman on 04-14-2023 Clarity (U) Sl. Cloudy Clear [facility] Urine color determinationOrd ered By: Marcos Hoffman on 04-14-2023 Color (U) Yellow Yellow [facility] Urine glucose detectionOrder ed By: Marcos Hoffman on 04-14-2023 Glucose Ql (U) 1000 mg/dl Normal [facility] Urine leukocyte esterase det ection by dipstickOrdered By: Marcos Hoffman on 04-14-2023 Leukocyte esterase Test strip Ql (U) 25 /ul Negative [facility] Urine pHOrdered By: Marcos Dasilva ndes on 04-14-2023 pH (U) 7.0 [pH] 5.0 - 8.0 [facility] Urine sediment bacteria coun t by microscopy (number/high power field)Ordered By: Marcos Hoffman on 04-14-2023 Bacteria LM.HPF (Urine sed) [#/Area] 3 /[HPF] None Seen [facility] Urine specific gravity measu rementOrdered By: Marcos Hoffman on 04-14-2023 Specific gravity (U) [Rel density] 1.010 1.002-1.030 [facility] Urine urobilinogen measureme ntOrdered By: Marcos Hoffman on 04-14-2023 Urobilinogen Ql (U) Normal mg/dl Normal [facility] 36on 04-12-2023 36 Normal [facility] Progress Noteon 04-10-2023 Progress Note Normal [facility] XR FEMUR 2+ VW RIGHTon 04-10 XR FEMUR 2+ VW RIGHT 2v right femur show the Intertan nail remains in good position.The fracture is well-aligned and remains unchanged from prior films. The fracture is still visualized. There has been some shortening. Normal [facility] Basophil percentageOrdered B y: Radha Elliott on 03-26-2023 Basophil percentage 11.1 g/dL 12.0-15.0 [facility] Basophil percentage 124 mg/dL 74-106 [facility] Basophil percentage 6.7 g/dL 6.4-8.2 [facility] Basophil percentage 0.30 mg/dL 0.20-1.00 [facility] Basophil percentage 143 mmol/L 136-145 [facility] Basophil percentage 3.8 mmol/L 3.5-5.1 [facility] Basophil percentage 115 mmol/L 98-107 [facility] Basophils (Bld) [#/Vol] 8.6 10*3/uL 4.4-11.0 [facility] Bilirubin [Mass/Vol] 0.30 mg/dL 0.20-1.00 [facility] Comment on above: For patients on eltr ombopag therapy, use of Dimension [place] TBIL is not recommended. Chloride [Moles/Vol] 115 mmol/L 98-107 [facility] Glucose [Mass/Vol] 124 mg/dL 74-106 [facility] Comment on above: Fasting Glucose resu lt from 100 to 125 mg/dL suggests IMPAIRED HOMEOSTASIS per A.D.A. criteria. Hemoglobin (Bld) [Mass/Vol] 11.1 g/dL 12.0-15.0 [facility] Potassium [Moles/Vol] 3.8 mmol/L 3.5-5.1 [facility] Protein [Mass/Vol] 6.7 g/dL 6.4-8.2 [facility] Sodium [Moles/Vol] 143 mmol/L 136-145 [facility] WBC (Bld) [#/Vol] 8.6 10*3/uL 4.4-11.0 [facility] Determination of erythrocyte mean corpuscular volume (MCV)Ordered By: Radha Elliott on 03-26-2023 MCV (RBC) [Entitic vol] 89.4 fL 81-99 [facility] Erythrocyte distribution wid th ratioOrdered By: Radha Elliott on 03-26-2023 Erythrocyte distribution width (RBC) [Ratio] 13.8 % 11.6-14.6 [facility] Erythrocyte distribution wid th standard deviationOrdered By: Radha Elliott on 03-26-2023 Erythrocyte distribution width (RBC) [Entitic vol] 45.1 fL 35.1-43.9 [facility] Hematocrit Auto (Bld) [Volum e fraction]Ordered By: Radha Elliott on 03-26-2023 Hematocrit (Bld) [Volume fraction] 36.2 % 37-47 [facility] Laboratory - Chemistry and C hemistry - challengeOrdered By: Radha Elliott on 03-26-2023 Albumin/Globulin [Mass ratio] 0.9 {ratio} 0.9-2.4 [facility] ALP [Catalytic activity/Vol] 97 U/L 45-117 [facility] ALT [Catalytic activity/Vol] 11 U/L 13-56 [facility] CO2 [Moles/Vol] 23.0 mmol/L 21.0-32.0 [facility] Globulin (S) [Mass/Vol] 3.5 g/dL 2.2-4.2 [facility] Urea nitrogen/Creatinine [Mass ratio] 40.7 mg/mg 10-20 [facility] Laboratory - Hematology and Cell countsOrdered By: Radha Elliott on 03-26-2023 MCH (RBC) [Entitic mass] 27.4 pg 27.0-32.0 [facility] MCHC (RBC) [Mass/Vol] 30.7 g/dL 32-36 [facility] Platelet mean volume (Bld) [Entitic vol] 9.5 fL 6.2-12.0 [facility] Platelets (Bld) [#/Vol] 289 10*3/uL 150-450 [facility] No Panel InformationOrdered By: Radha Elliott on 03-26-2023 Estimated GFR (MDRD) Amer 100 mL/min >60 [facility] Comment on above: GFR Calc Estimated GFR (MDRD) Non-Af Amer 83 mL/min >60 [facility] Comment on above: Non- GFR Calc 27.4 pg 27.0-32.0 [facility] 30.7 g/dL 32-36 [facility] 289 K/mm3 150-450 [facility] 9.5 fl 6.2-12.0 [facility] 83 mL/min >60 [facility] 100 mL/min >60 [facility] 40.7 RATIO 10-20 [facility] 3.5 g/dL 2.2-4.2 [facility] 0.9 RATIO 0.9-2.4 [facility] 97 U/L 45-117 [facility] 11 U/L 13-56 [facility] 23.0 mmol/L 21.0-32.0 [facility] RBC Auto (Bld) [#/Vol]Ordere d By: Radha Elliott on 03-26-2023 RBC (Bld) [#/Vol] 4.05 10*6/uL 4.2-5.4 [facility] Serum or plasma calcium timbo urement (mass/volume)Ordered By: Rahda Elliott on 03-26-2023 Calcium [Mass/Vol] 8.9 mg/dL 8.5-10.1 [facility] Serum or plasma creatinine m easurement (mass/volume)Ordered By: Radha Elliott on 03-26-2023 Creatinine [Mass/Vol] 0.74 mg/dL 0.55-1.02 [facility] Comment on above: The validity of the calculated GFR & GFRAA in patients over 70 years has not been determined. Clinical correlation is essential. Serum or plasma urea nitroge n measurement (mass/volume)Ordered By: Radha Elliott on 03-26-2023 Urea nitrogen [Mass/Vol] 30 mg/dL 7-18 [facility] Thin prep Papanicolaou smear with manual screeningOrdered By: Radha Elliott on 03-26-2023 Thin prep Papanicolaou smear with manual screening 3.2 g/dL 3.2-5.0 [facility] Thin prep Papanicolaou smear with manual screening 14 U/L 15-37 [facility] Thin prep Papanicolaou smear with manual screening 5 5-15 [facility] Basophil percentageOrdered B y: Radha Elliott on 03-19-2023 Basophil percentage 11.2 g/dL 12.0-15.0 [facility] Basophil percentage 108 mg/dL 74-106 [facility] Basophil percentage 7.2 g/dL 6.4-8.2 [facility] Basophil percentage 0.30 mg/dL 0.20-1.00 [facility] Basophil percentage 140 mmol/L 136-145 [facility] Basophil percentage 4.1 mmol/L 3.5-5.1 [facility] Basophil percentage 111 mmol/L 98-107 [facility] Basophils (Bld) [#/Vol] 8.4 10*3/uL 4.4-11.0 [facility] Bilirubin [Mass/Vol] 0.30 mg/dL 0.20-1.00 [facility] Comment on above: For patients on eltr ombopag therapy, use of Dimension [place] TBIL is not recommended. Chloride [Moles/Vol] 111 mmol/L 98-107 [facility] Glucose [Mass/Vol] 108 mg/dL 74-106 [facility] Comment on above: Fasting Glucose resu lt from 100 to 125 mg/dL suggests IMPAIRED HOMEOSTASIS per A.D.A. criteria. Hemoglobin (Bld) [Mass/Vol] 11.2 g/dL 12.0-15.0 [facility] Potassium [Moles/Vol] 4.1 mmol/L 3.5-5.1 [facility] Protein [Mass/Vol] 7.2 g/dL 6.4-8.2 [facility] Sodium [Moles/Vol] 140 mmol/L 136-145 [facility] WBC (Bld) [#/Vol] 8.4 10*3/uL 4.4-11.0 [facility] Determination of erythrocyte mean corpuscular volume (MCV)Ordered By: Radha Elliott on 03-19-2023 MCV (RBC) [Entitic vol] 90.2 fL 81-99 [facility] Erythrocyte distribution wid th ratioOrdered By: Radha Elliott on 03-19-2023 Erythrocyte distribution width (RBC) [Ratio] 13.8 % 11.6-14.6 [facility] Erythrocyte distribution wid th standard deviationOrdered By: Radha Elliott on 03-19-2023 Erythrocyte distribution width (RBC) [Entitic vol] 45.3 fL 35.1-43.9 [facility] Hematocrit Auto (Bld) [Volum e fraction]Ordered By: Radha Elliott on 03-19-2023 Hematocrit (Bld) [Volume fraction] 36.7 % 37-47 [facility] Laboratory - Chemistry and C hemistry - challengeOrdered By: Radha Elliott on 03-19-2023 Albumin/Globulin [Mass ratio] 0.8 {ratio} 0.9-2.4 [facility] ALP [Catalytic activity/Vol] 107 U/L 45-117 [facility] ALT [Catalytic activity/Vol] 14 U/L 13 [facility] CO2 [Moles/Vol] 26.0 mmol/L 21.0-32.0 [facility] Globulin (S) [Mass/Vol] 3.9 g/dL 2.2-4.2 [facility] Urea nitrogen/Creatinine [Mass ratio] 43.4 mg/mg 10- [facility] Laboratory - Hematology and Cell countsOrdered By: Radha lEliott on 03-19-2023 MCH (RBC) [Entitic mass] 27.5 pg 27.0-32.0 [facility] MCHC (RBC) [Mass/Vol] 30.5 g/dL 32-36 [facility] Platelets (Bld) [#/Vol] 304 10*3/uL 150-450 [facility] No Panel InformationOrdered By: Radha Elliott on 03-19-2023 Estimated GFR (MDRD) Amer 100 mL/min >60 [facility] Comment on above: GFR Calc Estimated GFR (MDRD) Non-Af Amer 83 mL/min >60 [facility] Comment on above: Non- GFR Calc 27.5 pg 27.0-32.0 [facility] 30.5 g/dL 32-36 [facility] 304 K/mm3 150-450 [facility] 83 mL/min >60 [facility] 100 mL/min >60 [facility] 43.4 RATIO - [facility] 3.9 g/dL 2.2-4.2 [facility] 0.8 RATIO 0.9-2.4 [facility] 107 U/L 45-117 [facility] 14 U/L - [facility] 26.0 mmol/L 21.0-32.0 [facility] Platelet mean volume Malick-Ec ker (Bld) [Entitic vol]Ordered By: Radha Elliott on 03-19-2023 Platelet mean volume (Bld) [Entitic vol] 9.4 fL 6.2-12.0 [facility] RBC Auto (Bld) [#/Vol]Ordere d By: Radha Elliott on 03-19-2023 RBC (Bld) [#/Vol] 4.07 10*6/uL 4.2-5.4 [facility] Serum or plasma calcium timbo urement (mass/volume)Ordered By: Radha Elliott on 03-19-2023 Calcium [Mass/Vol] 9.1 mg/dL 8.5-10.1 [facility] Serum or plasma creatinine m easurement (mass/volume)Ordered By: Radha Elliott on 03-19-2023 Creatinine [Mass/Vol] 0.74 mg/dL 0.55-1.02 [facility] Comment on above: The validity of the calculated GFR & GFRAA in patients over 70 years has not been determined. Clinical correlation is essential. Serum or plasma urea nitroge n measurement (mass/volume)Ordered By: Radha Elliott on 03-19-2023 Urea nitrogen [Mass/Vol] 32 mg/dL 7-18 [facility] Thin prep Papanicolaou smear with manual screeningOrdered By: Radha Elliott on 03-19-2023 Thin prep Papanicolaou smear with manual screening 3.3 g/dL 3.2-5.0 [facility] Thin prep Papanicolaou smear with manual screening 7 U/L 15-37 [facility] Thin prep Papanicolaou smear with manual screening 3 5-15 [facility] Basophil percentageOrdered B y: Radha Elliott on 03-12-2023 Basophil percentage 11.8 g/dL 12.0-15.0 [facility] Basophil percentage 97 mg/dL 74-106 [facility] Basophil percentage 6.7 g/dL 6.4-8.2 [facility] Basophil percentage 0.30 mg/dL 0.20-1.00 [facility] Basophil percentage 141 mmol/L 136-145 [facility] Basophil percentage 4.3 mmol/L 3.5-5.1 [facility] Basophil percentage 113 mmol/L 98-107 [facility] Basophils (Bld) [#/Vol] 7.4 10*3/uL 4.4-11.0 [facility] Bilirubin [Mass/Vol] 0.30 mg/dL 0.20-1.00 [facility] Comment on above: For patients on eltr ombopag therapy, use of Dim[place] TBIL is not recommended. Chloride [Moles/Vol] 113 mmol/L 98-107 [facility] Glucose [Mass/Vol] 97 mg/dL 74-106 [facility] Hemoglobin (Bld) [Mass/Vol] 11.8 g/dL 12.0-15.0 [facility] Potassium [Moles/Vol] 4.3 mmol/L 3.5-5.1 [facility] Protein [Mass/Vol] 6.7 g/dL 6.4-8.2 [facility] Sodium [Moles/Vol] 141 mmol/L 136-145 [facility] WBC (Bld) [#/Vol] 7.4 10*3/uL 4.4-11.0 [facility] Determination of erythrocyte mean corpuscular volume (MCV)Ordered By: Radha Elliott on 03-12-2023 MCV (RBC) [Entitic vol] 89.7 fL 81-99 [facility] Erythrocyte distribution wid th ratioOrdered By: Radha Elliott on 03-12-2023 Erythrocyte distribution width (RBC) [Ratio] 13.6 % 11.6-14.6 [facility] Erythrocyte distribution wid th standard deviationOrdered By: Radha Elliott on 03-12-2023 Erythrocyte distribution width (RBC) [Entitic vol] 44.8 fL 35.1-43.9 [facility] Hematocrit Auto (Bld) [Volum e fraction]Ordered By: Radha Elliott on 03-12-2023 Hematocrit (Bld) [Volume fraction] 39.0 % 37-47 [facility] Laboratory - Chemistry and C hemistry - challengeOrdered By: Radha Elliott on 03-12-2023 Albumin/Globulin [Mass ratio] 0.9 {ratio} 0.9-2.4 [facility] ALP [Catalytic activity/Vol] 98 U/L 45-117 [facility] ALT [Catalytic activity/Vol] 13 U/L 13-56 [facility] CO2 [Moles/Vol] 26.0 mmol/L 21.0-32.0 [facility] Globulin (S) [Mass/Vol] 3.6 g/dL 2.2-4.2 [facility] Urea nitrogen/Creatinine [Mass ratio] 33.5 mg/mg 10-20 [facility] Laboratory - Hematology and Cell countsOrdered By: Radha Elliott on 03-12-2023 MCH (RBC) [Entitic mass] 27.1 pg 27.0-32.0 [facility] MCHC (RBC) [Mass/Vol] 30.3 g/dL 32-36 [facility] Platelets (Bld) [#/Vol] 321 10*3/uL 150-450 [facility] No Panel InformationOrdered By: Radha Elliott on 03-12-2023 Estimated GFR (MDRD) Amer 99 mL/min >60 [facility] Comment on above: GFR Calc Estimated GFR (MDRD) Non-Af Amer 82 mL/min >60 [facility] Comment on above: Non- GFR Calc 27.1 pg 27.0-32.0 [facility] 30.3 g/dL 32-36 [facility] 321 K/mm3 150-450 [facility] 82 mL/min >60 [facility] 99 mL/min >60 [facility] 33.5 RATIO 10-20 [facility] 3.6 g/dL 2.2-4.2 [facility] 0.9 RATIO 0.9-2.4 [facility] 98 U/L 45-117 [facility] 13 U/L 13-56 [facility] 26.0 mmol/L 21.0-32.0 [facility] Platelet mean volume Malick-Ec ker (Bld) [Entitic vol]Ordered By: Rdaha Elliott on 03-12-2023 Platelet mean volume (Bld) [Entitic vol] 9.3 fL 6.2-12.0 [facility] RBC Auto (Bld) [#/Vol]Ordere d By: Radha Elliott on 03-12-2023 RBC (Bld) [#/Vol] 4.35 10*6/uL 4.2-5.4 [facility] Serum or plasma calcium timbo urement (mass/volume)Ordered By: Radha Elliott on 03-12-2023 Calcium [Mass/Vol] 9.3 mg/dL 8.5-10.1 [facility] Serum or plasma creatinine m easurement (mass/volume)Ordered By: Radha Elliott on 03-12-2023 Creatinine [Mass/Vol] 0.75 mg/dL 0.55-1.02 [facility] Comment on above: The validity of the calculated GFR & GFRAA in patients over 70 years has not been determined. Clinical correlation is essential. Serum or plasma urea nitroge n measurement (mass/volume)Ordered By: Radha Elliott on 03-12-2023 Urea nitrogen [Mass/Vol] 25 mg/dL 7-18 [facility] Thin prep Papanicolaou smear with manual screeningOrdered By: Radha Elliott on 03-12-2023 Thin prep Papanicolaou smear with manual screening 3.1 g/dL 3.2-5.0 [facility] Thin prep Papanicolaou smear with manual screening 13 U/L 15-37 [facility] Thin prep Papanicolaou smear with manual screening 2 5-15 [facility] Basophil percentageOrdered B y: Radha Elliott on 03-05-2023 Basophil percentage 11.5 g/dL 12.0-15.0 [facility] Basophil percentage 112 mg/dL 74-106 [facility] Basophil percentage 6.7 g/dL 6.4-8.2 [facility] Basophil percentage 0.30 mg/dL 0.20-1.00 [facility] Basophil percentage 140 mmol/L 136-145 [facility] Basophil percentage 4.0 mmol/L 3.5-5.1 [facility] Basophil percentage 108 mmol/L 98-107 [facility] Basophils (Bld) [#/Vol] 7.7 10*3/uL 4.4-11.0 [facility] Bilirubin [Mass/Vol] 0.30 mg/dL 0.20-1.00 [facility] Comment on above: For patients on eltr ombopag therapy, use of Dim[place] TBIL is not recommended. Chloride [Moles/Vol] 108 mmol/L 98-107 [facility] Glucose [Mass/Vol] 112 mg/dL 74-106 [facility] Comment on above: Fasting Glucose resu lt from 100 to 125 mg/dL suggests IMPAIRED HOMEOSTASIS per A.D.A. criteria. Hemoglobin (Bld) [Mass/Vol] 11.5 g/dL 12.0-15.0 [facility] Potassium [Moles/Vol] 4.0 mmol/L 3.5-5.1 [facility] Protein [Mass/Vol] 6.7 g/dL 6.4-8.2 [facility] Sodium [Moles/Vol] 140 mmol/L 136-145 [facility] WBC (Bld) [#/Vol] 7.7 10*3/uL 4.4-11.0 [facility] Determination of erythrocyte mean corpuscular volume (MCV)Ordered By: Radha Elliott on 03-05-2023 MCV (RBC) [Entitic vol] 90.4 fL 81-99 [facility] Erythrocyte distribution wid th ratioOrdered By: Radha Elliott on 03-05-2023 Erythrocyte distribution width (RBC) [Ratio] 13.5 % 11.6-14.6 [facility] Erythrocyte distribution wid th standard deviationOrdered By: Radhakristen Elliott on 03-05-2023 Erythrocyte distribution width (RBC) [Entitic vol] 44.5 fL 35.1-43.9 [facility] Hematocrit Auto (Bld) [Volum e fraction]Ordered By: Radhakristen Elliott on 03-05-2023 Hematocrit (Bld) [Volume fraction] 37.7 % 37-47 [facility] Laboratory - Chemistry and C hemistry - challengeOrdered By: Radha Elliott on 03-05-2023 Albumin/Globulin [Mass ratio] 0.9 {ratio} 0.9-2.4 [facility] ALP [Catalytic activity/Vol] 100 U/L 45-117 [facility] ALT [Catalytic activity/Vol] 12 U/L 13-56 [facility] CO2 [Moles/Vol] 29.0 mmol/L 21.0-32.0 [facility] Globulin (S) [Mass/Vol] 3.6 g/dL 2.2-4.2 [facility] Urea nitrogen/Creatinine [Mass ratio] 31.9 mg/mg 10-20 [facility] Laboratory - Hematology and Cell countsOrdered By: Radha Elliott on 03-05-2023 MCH (RBC) [Entitic mass] 27.6 pg 27.0-32.0 [facility] MCHC (RBC) [Mass/Vol] 30.5 g/dL 32-36 [facility] Platelets (Bld) [#/Vol] 306 10*3/uL 150-450 [facility] No Panel InformationOrdered By: Radha Elliott on 03-05-2023 Estimated GFR (MDRD) Amer 103 mL/min >60 [facility] Comment on above: GFR Calc Estimated GFR (MDRD) Non-Af Amer 85 mL/min >60 [facility] Comment on above: Non- GFR Calc 27.6 pg 27.0-32.0 [facility] 30.5 g/dL 32-36 [facility] 306 K/mm3 150-450 [facility] 85 mL/min >60 [facility] 103 mL/min >60 [facility] 31.9 RATIO 10-20 [facility] 3.6 g/dL 2.2-4.2 [facility] 0.9 RATIO 0.9-2.4 [facility] 100 U/L 45-117 [facility] 12 U/L 13-56 [facility] 29.0 mmol/L 21.0-32.0 [facility] Platelet mean volume Malick-Ec ker (Bld) [Entitic vol]Ordered By: Radha Elliott on 03-05-2023 Platelet mean volume (Bld) [Entitic vol] 9.1 fL 6.2-12.0 [facility] RBC Auto (Bld) [#/Vol]Ordere d By: Radha Elliott on 03-05-2023 RBC (Bld) [#/Vol] 4.17 10*6/uL 4.2-5.4 [facility] Serum or plasma calcium timbo urement (mass/volume)Ordered By: Radha Elliott on 03-05-2023 Calcium [Mass/Vol] 9.3 mg/dL 8.5-10.1 [facility] Serum or plasma creatinine m easurement (mass/volume)Ordered By: Radha Elliott on 03-05-2023 Creatinine [Mass/Vol] 0.72 mg/dL 0.55-1.02 [facility] Comment on above: The validity of the calculated GFR & GFRAA in patients over 70 years has not been determined. Clinical correlation is essential. Serum or plasma urea nitroge n measurement (mass/volume)Ordered By: Radha Elliott on 03-05-2023 Urea nitrogen [Mass/Vol] 23 mg/dL 7-18 [facility] Thin prep Papanicolaou smear with manual screeningOrdered By: Radha Elliott on 03-05-2023 Thin prep Papanicolaou smear with manual screening 3.1 g/dL 3.2-5.0 [facility] Thin prep Papanicolaou smear with manual screening 13 U/L 15-37 [facility] Thin prep Papanicolaou smear with manual screening 3 5-15 [facility] Basophil percentageOrdered B y: Radha Elliott on 02-26-2023 Basophil percentage 93 mg/dL 74-106 [facility] Basophil percentage 6.6 g/dL 6.4-8.2 [facility] Basophil percentage 0.40 mg/dL 0.20-1.00 [facility] Basophil percentage 141 mmol/L 136-145 [facility] Basophil percentage 4.0 mmol/L 3.5-5.1 [facility] Basophil percentage 108 mmol/L 98-107 [facility] Basophils (Bld) [#/Vol] 7.6 10*3/uL 4.4-11.0 [facility] Bilirubin [Mass/Vol] 0.40 mg/dL 0.20-1.00 [facility] Comment on above: For patients on eltr ombopag therapy, use of Dim[place] TBIL is not recommended. Chloride [Moles/Vol] 108 mmol/L 98-107 [facility] Glucose [Mass/Vol] 93 mg/dL 74-106 [facility] Potassium [Moles/Vol] 4.0 mmol/L 3.5-5.1 [facility] Protein [Mass/Vol] 6.6 g/dL 6.4-8.2 [facility] Sodium [Moles/Vol] 141 mmol/L 136-145 [facility] WBC (Bld) [#/Vol] 7.6 10*3/uL 4.4-11.0 [facility] Blood erythrocytes count (nu mber/volume)Ordered By: Radha Elliott on 02-26-2023 RBC (Bld) [#/Vol] 4.03 10*6/uL 4.2-5.4 [facility] Blood hemoglobin measurement (mass/volume)Ordered By: Radha Elliott on 02-26-2023 Hemoglobin (Bld) [Mass/Vol] 11.2 g/dL 12.0-15.0 [facility] Blood platelet mean volumeOr dered By: Radha Elliott on 02-26-2023 Platelet mean volume (Bld) [Entitic vol] 9.3 fL 6.2-12.0 [facility] Determination of erythrocyte mean corpuscular volume (MCV)Ordered By: Radha Elliott on 02-26-2023 MCV (RBC) [Entitic vol] 91.8 fL 81-99 [facility] Hematocrit Auto (Bld) [Volum e fraction]Ordered By: Radha Elliott on 02-26-2023 Hematocrit (Bld) [Volume fraction] 37.0 % 37-47 [facility] Laboratory - Chemistry and C hemistry - challengeOrdered By: Radhakristen Elliott on 02-26-2023 ALP [Catalytic activity/Vol] 90 U/L 45-117 [facility] ALT [Catalytic activity/Vol] 12 U/L 13-56 [facility] CO2 [Moles/Vol] 27.0 mmol/L 21.0-32.0 [facility] Globulin (S) [Mass/Vol] 3.7 g/dL 2.2-4.2 [facility] Urea nitrogen/Creatinine [Mass ratio] 35.1 mg/mg 10-20 [facility] Laboratory - Hematology and Cell countsOrdered By: Radha Elliott on 02-26-2023 Erythrocyte distribution width (RBC) [Entitic vol] 45.9 fL 35.1-43.9 [facility] Erythrocyte distribution width (RBC) [Ratio] 13.6 % 11.6-14.6 [facility] MCH (RBC) [Entitic mass] 27.8 pg 27.0-32.0 [facility] MCHC Auto (RBC) [Mass/Vol]Or dered By: Radha Elliott on 02-26-2023 MCHC (RBC) [Mass/Vol] 30.3 g/dL 32-36 [facility] No Panel InformationOrdered By: Radha Elliott on 02-26-2023 Estimated GFR (MDRD) Amer 110 mL/min >60 [facility] Comment on above: GFR Calc Estimated GFR (MDRD) Non-Af Amer 91 mL/min >60 [facility] Comment on above: Non- GFR Calc 27.8 pg 27.0-32.0 [facility] 13.6 % 11.6-14.6 [facility] 45.9 fl 35.1-43.9 [facility] 91 mL/min >60 [facility] 110 mL/min >60 [facility] 35.1 RATIO 10-20 [facility] 3.7 g/dL 2.2-4.2 [facility] 90 U/L 45-117 [facility] 12 U/L 13-56 [facility] 27.0 mmol/L 21.0-32.0 [facility] Platelets bldOrdered By: Kuldip Elliott on 02-26-2023 Platelets (Bld) [#/Vol] 312 10*3/uL 150-450 [facility] Serum or plasma albumin timbo urement (mass/volume)Ordered By: Radha Elliott on 02-26-2023 Albumin [Mass/Vol] 2.9 g/dL 3.2-5.0 [facility] Serum or plasma albumin/glob ulin mass ratioOrdered By: Radha Elliott on 02-26-2023 Albumin/Globulin [Mass ratio] 0.8 {ratio} 0.9-2.4 [facility] Serum or plasma calcium timbo urement (mass/volume)Ordered By: Radha Elliott on 02-26-2023 Calcium [Mass/Vol] 8.7 mg/dL 8.5-10.1 [facility] Serum or plasma creatinine m easurement (mass/volume)Ordered By: Radha Elliott on 02-26-2023 Creatinine [Mass/Vol] 0.68 mg/dL 0.55-1.02 [facility] Comment on above: The validity of the calculated GFR & GFRAA in patients over 70 years has not been determined. Clinical correlation is essential. Serum or plasma urea nitroge n measurement (mass/volume)Ordered By: Radhakristen Elliott on 02-26-2023 Urea nitrogen [Mass/Vol] 24 mg/dL 7-18 [facility] Thin prep Papanicolaou smear with manual screeningOrdered By: Radhakristen Elliott on 02-26-2023 Thin prep Papanicolaou smear with manual screening 14 U/L 15-37 [facility] Thin prep Papanicolaou smear with manual screening 6 5-15 [facility] Basophil percentageOrdered B y: Radha Elliott on 02-19-2023 Basophil percentage 82 mg/dL 74-106 [facility] Basophil percentage 6.8 g/dL 6.4-8.2 [facility] Basophil percentage 0.40 mg/dL 0.20-1.00 [facility] Basophil percentage 138 mmol/L 136-145 [facility] Basophil percentage 3.7 mmol/L 3.5-5.1 [facility] Basophil percentage 106 mmol/L 98-107 [facility] Basophils (Bld) [#/Vol] 7.2 10*3/uL 4.4-11.0 [facility] Bilirubin [Mass/Vol] 0.40 mg/dL 0.20-1.00 [facility] Comment on above: For patients on eltr ombopag therapy, use of Dim[place] TBIL is not recommended. Chloride [Moles/Vol] 106 mmol/L 98-107 [facility] Glucose [Mass/Vol] 82 mg/dL 74-106 [facility] Potassium [Moles/Vol] 3.7 mmol/L 3.5-5.1 [facility] Protein [Mass/Vol] 6.8 g/dL 6.4-8.2 [facility] Sodium [Moles/Vol] 138 mmol/L 136-145 [facility] WBC (Bld) [#/Vol] 7.2 10*3/uL 4.4-11.0 [facility] Blood erythrocytes count (nu mber/volume)Ordered By: Radha Elliott on 02-19-2023 RBC (Bld) [#/Vol] 4.23 10*6/uL 4.2-5.4 [facility] Blood hemoglobin measurement (mass/volume)Ordered By: Radha Elliott on 02-19-2023 Hemoglobin (Bld) [Mass/Vol] 11.8 g/dL 12.0-15.0 [facility] Blood platelet mean volumeOr dered By: Radha Elliott on 02-19-2023 Platelet mean volume (Bld) [Entitic vol] 9.3 fL 6.2-12.0 [facility] Determination of erythrocyte mean corpuscular volume (MCV)Ordered By: Radha Elliott on 02-19-2023 MCV (RBC) [Entitic vol] 93.4 fL 81-99 [facility] Hematocrit Auto (Bld) [Volum e fraction]Ordered By: Radha Elliott on 02-19-2023 Hematocrit (Bld) [Volume fraction] 39.5 % 37-47 [facility] Laboratory - Chemistry and C hemistry - challengeOrdered By: Radha Elliott on 02-19-2023 ALP [Catalytic activity/Vol] 103 U/L 45-117 [facility] ALT [Catalytic activity/Vol] 11 U/L 13-56 [facility] CO2 [Moles/Vol] 26.0 mmol/L 21.0-32.0 [facility] Globulin (S) [Mass/Vol] 3.7 g/dL 2.2-4.2 [facility] Urea nitrogen/Creatinine [Mass ratio] 33.3 mg/mg 10-20 [facility] - Hematology and Cell countsOrdered By: Radha Elliott on 02-19-2023 Erythrocyte distribution width (RBC) [Entitic vol] 47.4 fL 35.1-43.9 [facility] Erythrocyte distribution width (RBC) [Ratio] 13.8 % 11.6-14.6 [facility] MCH (RBC) [Entitic mass] 27.9 pg 27.0-32.0 [facility] MCHC Auto (RBC) [Mass/Vol]Or dered By: Radha Elliott on 02-19-2023 MCHC (RBC) [Mass/Vol] 29.9 g/dL 32-36 [facility] No Panel InformationOrdered By: Radha Elliott on 02-19-2023 Estimated GFR (MDRD) Amer 98 mL/min >60 [facility] Comment on above: GFR Calc Estimated GFR (MDRD) Non-Af Amer 81 mL/min >60 [facility] Comment on above: Non- GFR Calc 27.9 pg 27.0-32.0 [facility] 13.8 % 11.6-14.6 [facility] 47.4 fl 35.1-43.9 [facility] 81 mL/min >60 [facility] 98 mL/min >60 [facility] 33.3 RATIO 10-20 [facility] 3.7 g/dL 2.2-4.2 [facility] 103 U/L 45-117 [facility] 11 U/L 13-56 [facility] 26.0 mmol/L 21.0-32.0 [facility] Platelets bldOrdered By: Kuldip Elliott on 02-19-2023 Platelets (Bld) [#/Vol] 334 10*3/uL 150-450 [facility] Serum or plasma albumin timbo urement (mass/volume)Ordered By: Radha Elliott on 02-19-2023 Albumin [Mass/Vol] 3.1 g/dL 3.2-5.0 [facility] Serum or plasma albumin/glob ulin mass ratioOrdered By: Radha Elliott on 02-19-2023 Albumin/Globulin [Mass ratio] 0.8 {ratio} 0.9-2.4 [facility] Serum or plasma calcium timbo urement (mass/volume)Ordered By: Radha Elliott on 02-19-2023 Calcium [Mass/Vol] 9.2 mg/dL 8.5-10.1 [facility] Serum or plasma creatinine m easurement (mass/volume)Ordered By: Radha Elliott on 02-19-2023 Creatinine [Mass/Vol] 0.75 mg/dL 0.55-1.02 [facility] Comment on above: The validity of the calculated GFR & GFRAA in patients over 70 years has not been determined. Clinical correlation is essential. Serum or plasma urea nitroge n measurement (mass/volume)Ordered By: Radha Elliott on 02-19-2023 Urea nitrogen [Mass/Vol] 25 mg/dL 7-18 [facility] Thin prep Papanicolaou smear with manual screeningOrdered By: Radha Elliott on 02-19-2023 Thin prep Papanicolaou smear with manual screening 11 U/L 15-37 [facility] Thin prep Papanicolaou smear with manual screening 6 5-15 [facility] Basophil percentageOrdered B y: Radha Elliott on 02-13-2023 Basophil percentage 97 mg/dL 74-106 [facility] Basophil percentage 6.7 g/dL 6.4-8.2 [facility] Basophil percentage 0.40 mg/dL 0.20-1.00 [facility] Basophil percentage 138 mmol/L 136-145 [facility] Basophil percentage 4.0 mmol/L 3.5-5.1 [facility] Basophil percentage 108 mmol/L 98-107 [facility] Basophils (Bld) [#/Vol] 7.8 10*3/uL 4.4-11.0 [facility] Bilirubin [Mass/Vol] 0.40 mg/dL 0.20-1.00 [facility] Comment on above: For patients on eltr ombopag therapy, use of Dimension [place] TBIL is not recommended. Chloride [Moles/Vol] 108 mmol/L 98-107 [facility] Glucose [Mass/Vol] 97 mg/dL 74-106 [facility] Potassium [Moles/Vol] 4.0 mmol/L 3.5-5.1 [facility] Protein [Mass/Vol] 6.7 g/dL 6.4-8.2 [facility] Sodium [Moles/Vol] 138 mmol/L 136-145 [facility] WBC (Bld) [#/Vol] 7.8 10*3/uL 4.4-11.0 [facility] Blood erythrocytes count (nu mber/volume)Ordered By: Radha Elliott on 02-13-2023 RBC (Bld) [#/Vol] 3.92 10*6/uL 4.2-5.4 [facility] Blood hemoglobin measurement (mass/volume)Ordered By: Radha Elliott on 02-13-2023 Hemoglobin (Bld) [Mass/Vol] 11.1 g/dL 12.0-15.0 [facility] Blood platelet mean volumeOr dered By: Radha Elliott on 02-13-2023 Platelet mean volume (Bld) [Entitic vol] 9.0 fL 6.2-12.0 [facility] Determination of erythrocyte mean corpuscular volume (MCV)Ordered By: Rdaha Elliott on 02-13-2023 MCV (RBC) [Entitic vol] 93.4 fL 81-99 [facility] Hematocrit Auto (Bld) [Volum e fraction]Ordered By: Radha Elliott on 02-13-2023 Hematocrit (Bld) [Volume fraction] 36.6 % 37-47 [facility] Laboratory - Chemistry and C hemistry - challengeOrdered By: Radha Elliott on 02-13-2023 ALP [Catalytic activity/Vol] 104 U/L 45-117 [facility] ALT [Catalytic activity/Vol] 14 U/L 13-56 [facility] CO2 [Moles/Vol] 26.0 mmol/L 21.0-32.0 [facility] Globulin (S) [Mass/Vol] 3.7 g/dL 2.2-4.2 [facility] Urea nitrogen/Creatinine [Mass ratio] 35.6 mg/mg 10-20 [facility] Laboratory - Hematology and Cell countsOrdered By: Radha Elliott on 02-13-2023 Erythrocyte distribution width (RBC) [Entitic vol] 48.5 fL 35.1-43.9 [facility] Erythrocyte distribution width (RBC) [Ratio] 14.1 % 11.6-14.6 [facility] MCH (RBC) [Entitic mass] 28.3 pg 27.0-32.0 [facility] MCHC Auto (RBC) [Mass/Vol]Or dered By: Radha Elliott on 02-13-2023 MCHC (RBC) [Mass/Vol] 30.3 g/dL 32-36 [facility] No Panel InformationOrdered By: Radha Elliott on 02-13-2023 Estimated GFR (MDRD) Amer 111 mL/min >60 [facility] Comment on above: GFR Calc Estimated GFR (MDRD) Non-Af Amer 92 mL/min >60 [facility] Comment on above: Non- GFR Calc 28.3 pg 27.0-32.0 [facility] 14.1 % 11.6-14.6 [facility] 48.5 fl 35.1-43.9 [facility] 92 mL/min >60 [facility] 111 mL/min >60 [facility] 35.6 RATIO 10-20 [facility] 3.7 g/dL 2.2-4.2 [facility] 104 U/L 45-117 [facility] 14 U/L 13-56 [facility] 26.0 mmol/L 21.0-32.0 [facility] Platelets bldOrdered By: Kuldip Elliott on 02-13-2023 Platelets (Bld) [#/Vol] 342 10*3/uL 150-450 [facility] Serum or plasma albumin timbo urement (mass/volume)Ordered By: aRdha Elliott on 02-13-2023 Albumin [Mass/Vol] 3.0 g/dL 3.2-5.0 [facility] Serum or plasma albumin/glob ulin mass ratioOrdered By: Radha Elliott on 02-13-2023 Albumin/Globulin [Mass ratio] 0.8 {ratio} 0.9-2.4 [facility] Serum or plasma calcium timbo urement (mass/volume)Ordered By: Radha Elliott on 02-13-2023 Calcium [Mass/Vol] 8.9 mg/dL 8.5-10.1 [facility] Serum or plasma creatinine m easurement (mass/volume)Ordered By: Radha Elliott on 02-13-2023 Creatinine [Mass/Vol] 0.67 mg/dL 0.55-1.02 [facility] Comment on above: The validity of the calculated GFR & GFRAA in patients over 70 years has not been determined. Clinical correlation is essential. Serum or plasma urea nitroge n measurement (mass/volume)Ordered By: Radha Elliott on 02-13-2023 Urea nitrogen [Mass/Vol] 24 mg/dL 7-18 [facility] Thin prep Papanicolaou smear with manual screeningOrdered By: Radhakristen Elliott on 02-13-2023 Thin prep Papanicolaou smear with manual screening 14 U/L 15-37 [facility] Thin prep Papanicolaou smear with manual screening 4 5-15 [facility] Throat specimen bacteria kan ntification by cultureOrdered By: Radha Elliott on 02-07-2023 Bacteria identified Cx Nom (Throat) streptococcus isolated. [facility] Basophil percentageOrdered B y: Radha Elliott on 02-06-2023 Basophil percentage 99 mg/dL 74-106 [facility] Basophil percentage 6.4 g/dL 6.4-8.2 [facility] Basophil percentage 0.30 mg/dL 0.20-1.00 [facility] Basophil percentage 140 mmol/L 136-145 [facility] Basophil percentage 3.9 mmol/L 3.5-5.1 [facility] Basophil percentage 108 mmol/L 98-107 [facility] Basophils (Bld) [#/Vol] 8.1 10*3/uL 4.4-11.0 [facility] Bilirubin [Mass/Vol] 0.30 mg/dL 0.20-1.00 [facility] Comment on above: For patients on eltr ombopag therapy, use of Dimension [place] TBIL is not recommended. Chloride [Moles/Vol] 108 mmol/L 98-107 [facility] Glucose [Mass/Vol] 99 mg/dL 74-106 [facility] Potassium [Moles/Vol] 3.9 mmol/L 3.5-5.1 [facility] Protein [Mass/Vol] 6.4 g/dL 6.4-8.2 [facility] Sodium [Moles/Vol] 140 mmol/L 136-145 [facility] WBC (Bld) [#/Vol] 8.1 10*3/uL 4.4-11.0 [facility] Blood erythrocytes count (nu mber/volume)Ordered By: Radha Elliott on 02-06-2023 RBC (Bld) [#/Vol] 3.60 10*6/uL 4.2-5.4 [facility] Blood hemoglobin measurement (mass/volume)Ordered By: Radha Elliott on 02-06-2023 Hemoglobin (Bld) [Mass/Vol] 10.1 g/dL 12.0-15.0 [facility] Blood platelet mean volumeOr dered By: Radha Elliott on 02-06-2023 Platelet mean volume (Bld) [Entitic vol] 9.0 fL 6.2-12.0 [facility] Determination of erythrocyte mean corpuscular volume (MCV)Ordered By: Radha Elliott on 02-06-2023 MCV (RBC) [Entitic vol] 95.6 fL 81-99 [facility] Hematocrit Auto (Bld) [Volum e fraction]Ordered By: Radha Elliott on 02-06-2023 Hematocrit (Bld) [Volume fraction] 34.4 % 37-47 [facility] Laboratory - Chemistry and C hemistry - challengeOrdered By: Radha Elliott on 02-06-2023 ALP [Catalytic activity/Vol] 114 U/L 45-117 [facility] ALT [Catalytic activity/Vol] 13 U/L 13-56 [facility] CO2 [Moles/Vol] 28.0 mmol/L 21.0-32.0 [facility] Globulin (S) [Mass/Vol] 3.7 g/dL 2.2-4.2 [facility] Urea nitrogen/Creatinine [Mass ratio] 26.5 mg/mg 10-20 [facility] Laboratory - Hematology and Cell countsOrdered By: Radha Elliott on 02-06-2023 Erythrocyte distribution width (RBC) [Entitic vol] 50.0 fL 35.1-43.9 [facility] Erythrocyte distribution width (RBC) [Ratio] 14.2 % 11.6-14.6 [facility] MCH (RBC) [Entitic mass] 28.1 pg 27.0-32.0 [facility] MCHC Auto (RBC) [Mass/Vol]Or dered By: Radha Elliott on 02-06-2023 MCHC (RBC) [Mass/Vol] 29.4 g/dL 32-36 [facility] No Panel InformationOrdered By: Radha Elliott on 02-06-2023 Estimated GFR (MDRD) Amer 104 mL/min >60 [facility] Comment on above: GFR Calc Estimated GFR (MDRD) Non-Af Amer 86 mL/min >60 [facility] Comment on above: Non- GFR Calc 28.1 pg 27.0-32.0 [facility] 14.2 % 11.6-14.6 [facility] 50.0 fl 35.1-43.9 [facility] 86 mL/min >60 [facility] 104 mL/min >60 [facility] 26.5 RATIO 10-20 [facility] 3.7 g/dL 2.2-4.2 [facility] 114 U/L 45-117 [facility] 13 U/L 13-56 [facility] 28.0 mmol/L 21.0-32.0 [facility] Platelets bldOrdered By: Kuldip Elliott on 02-06-2023 Platelets (Bld) [#/Vol] 363 10*3/uL 150-450 [facility] Serum or plasma albumin timbo urement (mass/volume)Ordered By: Radha Elliott on 02-06-2023 Albumin [Mass/Vol] 2.7 g/dL 3.2-5.0 [facility] Serum or plasma albumin/glob ulin mass ratioOrdered By: Radha Elliott on 02-06-2023 Albumin/Globulin [Mass ratio] 0.7 {ratio} 0.9-2.4 [facility] Serum or plasma calcium timbo urement (mass/volume)Ordered By: Radha Elliott on 02-06-2023 Calcium [Mass/Vol] 9.0 mg/dL 8.5-10.1 [facility] Serum or plasma creatinine m easurement (mass/volume)Ordered By: Radha Elliott on 02-06-2023 Creatinine [Mass/Vol] 0.72 mg/dL 0.55-1.02 [facility] Comment on above: The validity of the calculated GFR & GFRAA in patients over 70 years has not been determined. Clinical correlation is essential. Serum or plasma urea nitroge n measurement (mass/volume)Ordered By: Radha Elliott on 02-06-2023 Urea nitrogen [Mass/Vol] 19 mg/dL 7-18 [facility] Thin prep Papanicolaou smear with manual screeningOrdered By: Radhakristen Elliott on 02-06-2023 Thin prep Papanicolaou smear with manual screening 15 U/L 15-37 [facility] Thin prep Papanicolaou smear with manual screening 4 5-15 [facility] Basophil percentageOrdered B y: Radha Elliott on 01-29-2023 Basophil percentage 61 mg/dL 74-106 [facility] Basophil percentage 6.8 g/dL 6.4-8.2 [facility] Basophil percentage 0.40 mg/dL 0.20-1.00 [facility] Basophil percentage 144 mmol/L 136-145 [facility] Basophil percentage 4.0 mmol/L 3.5-5.1 [facility] Basophil percentage 110 mmol/L 98-107 [facility] Basophils (Bld) [#/Vol] 7.1 10*3/uL 4.4-11.0 [facility] Bilirubin [Mass/Vol] 0.40 mg/dL 0.20-1.00 [facility] Comment on above: For patients on eltr ombopag therapy, use of Dim[place] TBIL is not recommended. Chloride [Moles/Vol] 110 mmol/L 98-107 [facility] Glucose [Mass/Vol] 61 mg/dL 74-106 [facility] Potassium [Moles/Vol] 4.0 mmol/L 3.5-5.1 [facility] Protein [Mass/Vol] 6.8 g/dL 6.4-8.2 [facility] Sodium [Moles/Vol] 144 mmol/L 136-145 [facility] WBC (Bld) [#/Vol] 7.1 10*3/uL 4.4-11.0 [facility] Blood erythrocytes count (nu mber/volume)Ordered By: Radha Elliott on 01-29-2023 RBC (Bld) [#/Vol] 3.56 10*6/uL 4.2-5.4 [facility] Blood hemoglobin measurement (mass/volume)Ordered By: Radha Elliott on 01-29-2023 Hemoglobin (Bld) [Mass/Vol] 10.4 g/dL 12.0-15.0 [facility] Blood platelet mean volumeOr dered By: Radha Elliott on 01-29-2023 Platelet mean volume (Bld) [Entitic vol] 9.2 fL 6.2-12.0 [facility] Determination of erythrocyte mean corpuscular volume (MCV)Ordered By: Radha Elliott on 01-29-2023 MCV (RBC) [Entitic vol] 98.3 fL 81-99 [facility] Hematocrit Auto (Bld) [Volum e fraction]Ordered By: Radha Elliott on 01-29-2023 Hematocrit (Bld) [Volume fraction] 35.0 % 37-47 [facility] Laboratory - Chemistry and C hemistry - challengeOrdered By: Radhakristen Elliott on 01-29-2023 ALP [Catalytic activity/Vol] 122 U/L 45-117 [facility] ALT [Catalytic activity/Vol] 14 U/L 13-56 [facility] CO2 [Moles/Vol] 28.0 mmol/L 21.0-32.0 [facility] Globulin (S) [Mass/Vol] 3.8 g/dL 2.2-4.2 [facility] Urea nitrogen/Creatinine [Mass ratio] 33.0 mg/mg 10-20 [facility] Laboratory - Hematology and Cell countsOrdered By: Radha Elliott on 01-29-2023 Erythrocyte distribution width (RBC) [Entitic vol] 53.1 fL 35.1-43.9 [facility] Erythrocyte distribution width (RBC) [Ratio] 14.6 % 11.6-14.6 [facility] MCH (RBC) [Entitic mass] 29.2 pg 27.0-32.0 [facility] MCHC Auto (RBC) [Mass/Vol]Or dered By: Radha Elliott on 01-29-2023 MCHC (RBC) [Mass/Vol] 29.7 g/dL 32-36 [facility] No Panel InformationOrdered By: Radha Elliott on 01-29-2023 Estimated GFR (MDRD) Amer 113 mL/min >60 [facility] Comment on above: GFR Calc Estimated GFR (MDRD) Non-Af Amer 93 mL/min >60 [facility] Comment on above: Non- GFR Calc 29.2 pg 27.0-32.0 [facility] 14.6 % 11.6-14.6 [facility] 53.1 fl 35.1-43.9 [facility] 93 mL/min >60 [facility] 113 mL/min >60 [facility] 33.0 RATIO 10-20 [facility] 3.8 g/dL 2.2-4.2 [facility] 122 U/L 45-117 [facility] 14 U/L 13-56 [facility] 28.0 mmol/L 21.0-32.0 [facility] Platelets bldOrdered By: Kuldip Elliott on 01-29-2023 Platelets (Bld) [#/Vol] 343 10*3/uL 150-450 [facility] Serum or plasma albumin timbo urement (mass/volume)Ordered By: Radha Elliott on 01-29-2023 Albumin [Mass/Vol] 3.0 g/dL 3.2-5.0 [facility] Serum or plasma albumin/glob ulin mass ratioOrdered By: Radha Elliott on 01-29-2023 Albumin/Globulin [Mass ratio] 0.8 {ratio} 0.9-2.4 [facility] Serum or plasma calcium timbo urement (mass/volume)Ordered By: Radha Elliott on 01-29-2023 Calcium [Mass/Vol] 8.8 mg/dL 8.5-10.1 [facility] Serum or plasma creatinine m easurement (mass/volume)Ordered By: Radha Elliott on 01-29-2023 Creatinine [Mass/Vol] 0.67 mg/dL 0.55-1.02 [facility] Comment on above: The validity of the calculated GFR & GFRAA in patients over 70 years has not been determined. Clinical correlation is essential. Serum or plasma urea nitroge n measurement (mass/volume)Ordered By: Radha Elliott on 01-29-2023 Urea nitrogen [Mass/Vol] 22 mg/dL - [facility] Thin prep Papanicolaou smear with manual screeningOrdered By: Radha Elliott on 01-29-2023 Thin prep Papanicolaou smear with manual screening 13 U/L 15- [facility] Thin prep Papanicolaou smear with manual screening 6 5-15 [facility] 36on 01-22-2023 36 Called Omar metcalf ([phone]) and spoke with Paula, patient's nurse, to pass along updated orders per Ty. Imaging due: 03/29/2023 Normal [facility] Basophil percentageOrdered B y: Radha Elliott on 01-22-2023 Basophil percentage 58 mg/dL 74-106 [facility] Basophil percentage 6.8 g/dL 6.4-8.2 [facility] Basophil percentage 0.50 mg/dL 0.20-1.00 [facility] Basophil percentage 139 mmol/L 136-145 [facility] Basophil percentage 3.9 mmol/L 3.5-5.1 [facility] Basophil percentage 106 mmol/L 98-107 [facility] Basophils (Bld) [#/Vol] 8.1 10*3/uL 4.4-11.0 [facility] Bilirubin [Mass/Vol] 0.50 mg/dL 0.20-1.00 [facility] Comment on above: For patients on eltr ombopag therapy, use of [place] TBIL is not recommended. Chloride [Moles/Vol] 106 mmol/L 98-107 [facility] Glucose [Mass/Vol] 58 mg/dL 74-106 [facility] Potassium [Moles/Vol] 3.9 mmol/L 3.5-5.1 [facility] Protein [Mass/Vol] 6.8 g/dL 6.4-8.2 [facility] Sodium [Moles/Vol] 139 mmol/L 136-145 [facility] WBC (Bld) [#/Vol] 8.1 10*3/uL 4.4-11.0 [facility] Blood erythrocytes count (nu mber/volume)Ordered By: Radha Elliott on 01-22-2023 RBC (Bld) [#/Vol] 3.62 10*6/uL 4.2-5.4 [facility] Blood hemoglobin measurement (mass/volume)Ordered By: Radha Elliott on 01-22-2023 Hemoglobin (Bld) [Mass/Vol] 10.4 g/dL 12.0-15.0 [facility] Blood platelet mean volumeOr dered By: Radha Elliott on 01-22-2023 Platelet mean volume (Bld) [Entitic vol] 9.3 fL 6.2-12.0 [facility] Determination of erythrocyte mean corpuscular volume (MCV)Ordered By: Radha Elliott on 01-22-2023 MCV (RBC) [Entitic vol] 98.9 fL 81-99 [facility] Hematocrit Auto (Bld) [Volum e fraction]Ordered By: Radha Elliott on 01-22-2023 Hematocrit (Bld) [Volume fraction] 35.8 % 37-47 [facility] Laboratory - Chemistry and C hemistry - challengeOrdered By: Radha Elliott on 01-22-2023 ALP [Catalytic activity/Vol] 147 U/L 45-117 [facility] ALT [Catalytic activity/Vol] 15 U/L 13-56 [facility] CO2 [Moles/Vol] 28.0 mmol/L 21.0-32.0 [facility] Globulin (S) [Mass/Vol] 3.8 g/dL 2.2-4.2 [facility] Urea nitrogen/Creatinine [Mass ratio] 29.2 mg/mg 10-20 [facility] Laboratory - Hematology and Cell countsOrdered By: Radha Elliott on 01-22-2023 Erythrocyte distribution width (RBC) [Entitic vol] 55.4 fL 35.1-43.9 [facility] Erythrocyte distribution width (RBC) [Ratio] 15.3 % 11.6-14.6 [facility] MCH (RBC) [Entitic mass] 28.7 pg 27.0-32.0 [facility] MCHC Auto (RBC) [Mass/Vol]Or dered By: Radha Elliott on 01-22-2023 MCHC (RBC) [Mass/Vol] 29.1 g/dL 32-36 [facility] No Panel InformationOrdered By: Radha Elliott on 01-22-2023 Estimated GFR (MDRD) Amer 104 mL/min >60 [facility] Comment on above: GFR Calc Estimated GFR (MDRD) Non-Af Amer 86 mL/min >60 [facility] Comment on above: Non- GFR Calc 28.7 pg 27.0-32.0 [facility] 15.3 % 11.6-14.6 [facility] 55.4 fl 35.1-43.9 [facility] 86 mL/min >60 [facility] 104 mL/min >60 [facility] 29.2 RATIO 10-20 [facility] 3.8 g/dL 2.2-4.2 [facility] 147 U/L 45-117 [facility] 15 U/L 13-56 [facility] 28.0 mmol/L 21.0-32.0 [facility] Platelets bldOrdered By: Kuldip Elliott on 01-22-2023 Platelets (Bld) [#/Vol] 343 10*3/uL 150-450 [facility] Serum or plasma albumin timbo urement (mass/volume)Ordered By: Radha Elliott on 01-22-2023 Albumin [Mass/Vol] 3.0 g/dL 3.2-5.0 [facility] Serum or plasma albumin/glob ulin mass ratioOrdered By: Radha Elliott on 01-22-2023 Albumin/Globulin [Mass ratio] 0.8 {ratio} 0.9-2.4 [facility] Serum or plasma calcium timbo urement (mass/volume)Ordered By: Radha Elliott on 01-22-2023 Calcium [Mass/Vol] 8.8 mg/dL 8.5-10.1 [facility] Serum or plasma creatinine m easurement (mass/volume)Ordered By: Radha Elliott on 01-22-2023 Creatinine [Mass/Vol] 0.72 mg/dL 0.55-1.02 [facility] Comment on above: The validity of the calculated GFR & GFRAA in patients over 70 years has not been determined. Clinical correlation is essential. Serum or plasma urea nitroge n measurement (mass/volume)Ordered By: Radha Elliott on 01-22-2023 Urea nitrogen [Mass/Vol] 21 mg/dL 7-18 [facility] Thin prep Papanicolaou smear with manual screeningOrdered By: Radha Elliott on 01-22-2023 Thin prep Papanicolaou smear with manual screening 16 U/L 15-37 [facility] Thin prep Papanicolaou smear with manual screening 5 5-15 [facility] 36on 01-19-2023 36 Films reviewed. Cont inue WBAT RLE. Continue hip and knee ROM. Will need repeat 2v right femur at the 3 month post op john. Normal [facility] 36 Xrays of right femur taken on 01/10/23: Normal [facility] Basophil percentageOrdered B y: Radha Elliott on 01-15-2023 Basophil percentage 80 mg/dL 74-106 [facility] Basophil percentage 6.9 g/dL 6.4-8.2 [facility] Basophil percentage 0.50 mg/dL 0.20-1.00 [facility] Basophil percentage 139 mmol/L 136-145 [facility] Basophil percentage 4.0 mmol/L 3.5-5.1 [facility] Basophil percentage 106 mmol/L 98-107 [facility] Basophils (Bld) [#/Vol] 8.3 10*3/uL 4.4-11.0 [facility] Bilirubin [Mass/Vol] 0.50 mg/dL 0.20-1.00 [facility] Comment on above: For patients on eltr ombopag therapy, use of Dim[place] TBIL is not recommended. Chloride [Moles/Vol] 106 mmol/L 98-107 [facility] Glucose [Mass/Vol] 80 mg/dL 74-106 [facility] Potassium [Moles/Vol] 4.0 mmol/L 3.5-5.1 [facility] Protein [Mass/Vol] 6.9 g/dL 6.4-8.2 [facility] Sodium [Moles/Vol] 139 mmol/L 136-145 [facility] WBC (Bld) [#/Vol] 8.3 10*3/uL 4.4-11.0 [facility] Blood erythrocytes count (nu mber/volume)Ordered By: Radah Elliott on 01-15-2023 RBC (Bld) [#/Vol] 3.30 10*6/uL 4.2-5.4 [facility] Blood hemoglobin measurement (mass/volume)Ordered By: Radha Elliott on 01-15-2023 Hemoglobin (Bld) [Mass/Vol] 9.7 g/dL 12.0-15.0 [facility] Blood platelet mean volumeOr dered By: Radha Elliott on 01-15-2023 Platelet mean volume (Bld) [Entitic vol] 8.9 fL 6.2-12.0 [facility] Determination of erythrocyte mean corpuscular volume (MCV)Ordered By: Radha Elliott on 01-15-2023 MCV (RBC) [Entitic vol] 99.1 fL 81-99 [facility] Hematocrit Auto (Bld) [Volum e fraction]Ordered By: Radha Elliott on 01-15-2023 Hematocrit (Bld) [Volume fraction] 32.7 % 37-47 [facility] Laboratory - Chemistry and C hemistry - challengeOrdered By: Radhakristen Elliott on 01-15-2023 ALP [Catalytic activity/Vol] 191 U/L 45-117 [facility] ALT [Catalytic activity/Vol] 16 U/L 13-56 [facility] CO2 [Moles/Vol] 27.0 mmol/L 21.0-32.0 [facility] Globulin (S) [Mass/Vol] 4.0 g/dL 2.2-4.2 [facility] Urea nitrogen/Creatinine [Mass ratio] 32.8 mg/mg 10-20 [facility] Laboratory - Hematology and Cell countsOrdered By: Radha Elliott on 01-15-2023 Erythrocyte distribution width (RBC) [Entitic vol] 60.5 fL 35.1-43.9 [facility] Erythrocyte distribution width (RBC) [Ratio] 16.6 % 11.6-14.6 [facility] MCH (RBC) [Entitic mass] 29.4 pg 27.0-32.0 [facility] MCHC Auto (RBC) [Mass/Vol]Or dered By: Radha Elliott on 01-15-2023 MCHC (RBC) [Mass/Vol] 29.7 g/dL 32-36 [facility] No Panel InformationOrdered By: Radha Elliott on 01-15-2023 Estimated GFR (MDRD) Amer 112 mL/min >60 [facility] Comment on above: GFR Calc Estimated GFR (MDRD) Non-Af Amer 93 mL/min >60 [facility] Comment on above: Non- GFR Calc Vitamin D 25-Hydroxy 82.0 ng/mL [facility] Comment on above: Vitamin D 25(OH) Sta tus Range Deficiency <20 ng/mL (50nmol/L) Insufficiency 20 - 30 ng/mL (50 - 75 nmol/L) Sufficiency 30 - 100 ng/mL (75 - 250 nmol/L) Toxicity >100 ng/mL (>250 nmol/L) 29.4 pg 27.0-32.0 [facility] 16.6 % 11.6-14.6 [facility] 60.5 fl 35.1-43.9 [facility] 93 mL/min >60 [facility] 112 mL/min >60 [facility] 32.8 RATIO 10-20 [facility] 4.0 g/dL 2.2-4.2 [facility] 191 U/L 45-117 [facility] 16 U/L 13-56 [facility] 27.0 mmol/L 21.0-32.0 [facility] 82.0 ng/mL [facility] Platelets bldOrdered By: Kuldip Elliott on 01-15-2023 Platelets (Bld) [#/Vol] 494 10*3/uL 150-450 [facility] Serum or plasma albumin timbo urement (mass/volume)Ordered By: Radha Elliott on 01-15-2023 Albumin [Mass/Vol] 2.9 g/dL 3.2-5.0 [facility] Serum or plasma albumin/glob ulin mass ratioOrdered By: Radha Elliott on 01-15-2023 Albumin/Globulin [Mass ratio] 0.7 {ratio} 0.9-2.4 [facility] Serum or plasma calcium timbo urement (mass/volume)Ordered By: Radha Elliott on 01-15-2023 Calcium [Mass/Vol] 8.6 mg/dL 8.5-10.1 [facility] Serum or plasma creatinine m easurement (mass/volume)Ordered By: Radha Elilott on 01-15-2023 Creatinine [Mass/Vol] 0.67 mg/dL 0.55-1.02 [facility] Comment on above: The validity of the calculated GFR & GFRAA in patients over 70 years has not been determined. Clinical correlation is essential. Serum or plasma urea nitroge n measurement (mass/volume)Ordered By: Radha Elliott on 01-15-2023 Urea nitrogen [Mass/Vol] 22 mg/dL 7-18 [facility] Thin prep Papanicolaou smear with manual screeningOrdered By: Radha Elliott on 01-15-2023 Thin prep Papanicolaou smear with manual screening 17 U/L 15-37 [facility] Thin prep Papanicolaou smear with manual screening 6 5-15 [facility] CARECOORDon 01-13-2023 [facility] Patient Choice Patient Name: DONNA MARSH Date of : 1955 [facility] Absolute lymphocyte countOrd ered By: Radha Elliott on 01-10-2023 Lymphocytes Auto (Unsp spec) [#/Vol] 3.08 10*3/uL 0.83-4.51 [facility] Bacteria identified Cx Nom ( U)Ordered By: Radha Elliott on 01-10-2023 Culture, urine Escherichia coli [facility] Basophil percentageOrdered B y: Radha Elliott on 01-10-2023 Basophil percentage 0 SEEN /hpf 0-5 [facility] Basophils (Bld) [#/Vol] 11.6 10*3/uL 4.4-11.0 [facility] Basophils (Bld) [#/Vol] 7.3 10*3/uL 2.0-7.7 [facility] Basophils/100 WBC (Bld) 0.4 % 0-1 [facility] Basophils/100 WBC (Bld) 62.8 % 47-70 [facility] Basophils/100 WBC (Bld) 3.4 % 0-5 [facility] Eosinophils/100 WBC (Bld) 3.4 % 0-5 [facility] Neutrophils (Bld) [#/Vol] 7.3 10*3/uL 2.0-7.7 [facility] Neutrophils/100 WBC (Bld) 62.8 % 47-70 [facility] WBC (Bld) [#/Vol] 11.6 10*3/uL 4.4-11.0 [facility] Bilirubin Test strip Ql (U)O rdered By: Radha Elliott on 01-10-2023 Bilirubin Ql (U) Negative Negative [facility] Blood erythrocytes count (nu mber/volume)Ordered By: Radha Elliott on 01-10-2023 RBC (Bld) [#/Vol] 3.22 10*6/uL 4.2-5.4 [facility] Blood hemoglobin measurement (mass/volume)Ordered By: Radha Elliott on 01-10-2023 Hemoglobin (Bld) [Mass/Vol] 9.4 g/dL 12.0-15.0 [facility] Blood lymphocytes/100 leukoc ytesOrdered By: Radha Elliott on 01-10-2023 Lymphocytes/100 WBC (Bld) 26.5 % 19-41 [facility] Blood manual differential co mment interpretation (narrative result)Ordered By: Radha Elliott on 01-10-2023 Manual differential comment Minesh (Bld) [Interp] SCANNED [facility] Blood monocytes/100 leukocyt esOrdered By: Radha Elliott on 01-10-2023 Monocytes/100 WBC (Bld) 6.4 % 0-10 [facility] Blood platelet mean volumeOr dered By: Radha Elliott on 01-10-2023 Platelet mean volume (Bld) [Entitic vol] 9.0 fL 6.2-12.0 [facility] Culture, urineOrdered By: Jayy Elliott on 01-10-2023 Bacteria identified Cx Nom (U) Escherichia coli [facility] Determination of erythrocyte mean corpuscular volume (MCV)Ordered By: Radha Elliott on 01-10-2023 MCV (RBC) [Entitic vol] 100.9 fL 81-99 [facility] Hematocrit Auto (Bld) [Volum e fraction]Ordered By: Radha Elliott on 01-10-2023 Hematocrit (Bld) [Volume fraction] 32.5 % 37-47 [facility] Ketones Test strip Ql (U)Ord ered By: Radha Elliott on 01-10-2023 Ketones Ql (U) Negative Negative [facility] Laboratory - Hematology and Cell countsOrdered By: Radha Elliott on 01-10-2023 Anisocytosis Ql (Bld) 2+ [facility] Erythrocyte distribution width (RBC) [Entitic vol] 65.1 fL 35.1-43.9 [facility] Erythrocyte distribution width (RBC) [Ratio] 17.7 % 11.6-14.6 [facility] Immature granulocytes/100 WBC (Bld) 0.500 % 0.0-0.9 [facility] Comment on above: IG% - Immature Granu locytes (promyelocytes, myelocytes and metamyelocytes) > 1% indicates that a LEFT SHIFT is Present. MCH (RBC) [Entitic mass] 29.2 pg 27.0-32.0 [facility] Nucleated RBC/100 WBC (Bld) [Ratio] 0 % 0-5 [facility] MCHC Auto (RBC) [Mass/Vol]Or dered By: Radha Elliott on 01-10-2023 MCHC (RBC) [Mass/Vol] 28.9 g/dL 32-36 [facility] Macrocytes detectionOrdered By: Radha Elliott on 01-10-2023 Macrocytes Ql (Bld) 1+ [facility] Mucus LM Ql (Urine sed)Order ed By: Radha Elliott on 01-10-2023 Mucus Ql (Urine sed) 1+ /hpf [facility] Nitrite Test strip Ql (U)Ord ered By: Radha Elliott on 01-10-2023 Nitrite Ql (U) Negative Negative [facility] No Panel InformationOrdered By: Radha Elliott on 01-10-2023 29.2 pg 27.0-32.0 [facility] 17.7 % 11.6-14.6 [facility] 65.1 fl 35.1-43.9 [facility] 0.500 % 0.0-0.9 [facility] 0 % 0-5 [facility] 2+ [facility] Platelets bldOrdered By: Kuldip Elliott on 01-10-2023 Platelets (Bld) [#/Vol] 680 10*3/uL 150-450 [facility] Protein Test strip Ql (U)Ord ered By: Radha Elliott on 01-10-2023 Protein Ql (U) Negative Negative [facility] Squamous epithelial cells de tection in urine sediment by light microscopyOrdered By: Radha Elliott on 01-10-2023 Epithelial cells.squamous LM Ql (Urine sed) 0-5 SEEN /hpf 5-10 [facility] Thin prep Papanicolaou smear with manual screeningOrdered By: Radha Elliott on 01-10-2023 Thin prep Papanicolaou smear with manual screening 1+ [facility] Urine blood detectionOrdered By: Radha Elliott on 01-10-2023 RBC Ql (U) Negative Negative [facility] RBC Ql (U) 0-5 SEEN /hpf 0-5 [facility] Urine clarityOrdered By: Kuldip Elliott on 01-10-2023 Clarity (U) Clear Clear [facility] Urine color determinationOrd ered By: Radha Elliott on 01-10-2023 Color (U) Yellow Yellow [facility] Urine glucose detectionOrder ed By: Radha Elliott on 01-10-2023 Glucose Ql (U) Normal mg/dl Normal [facility] Urine leukocyte esterase det ection by dipstickOrdered By: Radha Elliott on 01-10-2023 Leukocyte esterase Test strip Ql (U) Negative Negative [facility] Urine pHOrdered By: Radha oquendo on 01-10-2023 pH (U) 6.0 [pH] 5.0 - 8.0 [facility] Urine sediment bacteria coun t by microscopy (number/high power field)Ordered By: Radha Elliott on 01-10-2023 Bacteria LM.HPF (Urine sed) [#/Area] 1 /[HPF] None Seen [facility] Urine specific gravity measu rementOrdered By: Radha Elliott on 01-10-2023 Specific gravity (U) [Rel density] 1.010 1.002-1.030 [facility] Urobilinogen Auto test strip Ql (U)Ordered By: Radha Elliott on 01-10-2023 Urobilinogen Ql (U) Normal mg/dl Normal [facility] Absolute lymphocyte countOrd ered By: Radha Elliott on 01-08-2023 Lymphocytes Auto (Unsp spec) [#/Vol] 3.88 10*3/uL 0.83-4.51 [facility] Basophil percentageOrdered B y: Radha Elliott on 01-08-2023 Basophil percentage 97 mg/dL 74-106 [facility] Basophil percentage 6.9 g/dL 6.4-8.2 [facility] Basophil percentage 0.50 mg/dL 0.20-1.00 [facility] Basophil percentage 138 mmol/L 136-145 [facility] Basophil percentage 4.6 mmol/L 3.5-5.1 [facility] Basophil percentage 108 mmol/L 98-107 [facility] Basophils (Bld) [#/Vol] 12.9 10*3/uL 4.4-11.0 [facility] Basophils (Bld) [#/Vol] 7.7 10*3/uL 2.0-7.7 [facility] Basophils/100 WBC (Bld) 0.4 % 0-1 [facility] Basophils/100 WBC (Bld) 59.7 % 47-70 [facility] Basophils/100 WBC (Bld) 3.3 % 0-5 [facility] Bilirubin [Mass/Vol] 0.50 mg/dL 0.20-1.00 [facility] Comment on above: For patients on eltr ombopag therapy, use of Dimension [place] TBIL is not recommended. Chloride [Moles/Vol] 108 mmol/L 98-107 [facility] Eosinophils/100 WBC (Bld) 3.3 % 0-5 [facility] Glucose [Mass/Vol] 97 mg/dL 74-106 [facility] Neutrophils (Bld) [#/Vol] 7.7 10*3/uL 2.0-7.7 [facility] Neutrophils/100 WBC (Bld) 59.7 % 47-70 [facility] Potassium [Moles/Vol] 4.6 mmol/L 3.5-5.1 [facility] Protein [Mass/Vol] 6.9 g/dL 6.4-8.2 [facility] Sodium [Moles/Vol] 138 mmol/L 136-145 [facility] WBC (Bld) [#/Vol] 12.9 10*3/uL 4.4-11.0 [facility] Blood erythrocytes count (nu mber/volume)Ordered By: Radha Elliott on 01-08-2023 RBC (Bld) [#/Vol] 2.96 10*6/uL 4.2-5.4 [facility] Blood hemoglobin measurement (mass/volume)Ordered By: Radha Elliott on 01-08-2023 Hemoglobin (Bld) [Mass/Vol] 8.7 g/dL 12.0-15.0 [facility] Blood lymphocytes/100 leukoc ytesOrdered By: Radha Elliott on 01-08-2023 Lymphocytes/100 WBC (Bld) 30.1 % 19-41 [facility] Blood monocytes/100 leukocyt esOrdered By: Radha Elliott on 01-08-2023 Monocytes/100 WBC (Bld) 5.8 % 0-10 [facility] Blood platelet mean volumeOr dered By: Radha Elliott on 01-08-2023 Platelet mean volume (Bld) [Entitic vol] 9.1 fL 6.2-12.0 [facility] Determination of erythrocyte mean corpuscular volume (MCV)Ordered By: Radha Elliott on 01-08-2023 MCV (RBC) [Entitic vol] 100.3 fL 81-99 [facility] Hematocrit Auto (Bld) [Volum e fraction]Ordered By: Radha Elliott on 01-08-2023 Hematocrit (Bld) [Volume fraction] 29.7 % 37-47 [facility] Laboratory - Chemistry and C hemistry - challengeOrdered By: Radha Elliott on 01-08-2023 ALP [Catalytic activity/Vol] 177 U/L 45-117 [facility] ALT [Catalytic activity/Vol] 27 U/L 13-56 [facility] CO2 [Moles/Vol] 25.0 mmol/L 21.0-32.0 [facility] Globulin (S) [Mass/Vol] 4.1 g/dL 2.2-4.2 [facility] Urea nitrogen/Creatinine [Mass ratio] 32.3 mg/mg 10-20 [facility] Laboratory - Hematology and Cell countsOrdered By: Radha Elliott on 01-08-2023 Anisocytosis Ql (Bld) 1+ [facility] Erythrocyte distribution width (RBC) [Entitic vol] 66.4 fL 35.1-43.9 [facility] Erythrocyte distribution width (RBC) [Ratio] 18.2 % 11.6-14.6 [facility] Immature granulocytes/100 WBC (Bld) 0.700 % 0.0-0.9 [facility] Comment on above: IG% - Immature Granu locytes (promyelocytes, myelocytes and metamyelocytes) > 1% indicates that a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 sent 10/18. [place] [address] Please advise This is what I see in the Rx Start Date: 10/15/22 End Date: 11/14/22 after 30 doses Is this correct? [place] [address] [address] from [facility] called in asking for an end date for Lovenox. Patient was put on the injection upon discharge and they do not know when they are able to discontinue it. Please call Wendy and advise. Patient is also located in [address] 10-17-2022 36 Conversion left tota l hip arthroplasty DOS: 10/10/[address] Parks at the phone number provided in the TE, no answer. LVM to call office if still needed, phone number provided [place] [address] Can you call and fin d out what questions he may have? [address] 10-16-[address] [facility] Anion gap [Moles/Vol] 7 mmol/L 3 - 13 mmol/L [facility] Calcium [Mass/Vol] 8.6 mg/dL 8.4 - 10. 4 mg/dL [facility] Chloride [Moles/Vol] 101 mmol/L 98 - 10 7 mmol/L [facility] CO2 [Moles/Vol] 28 mmol/L 22 - 30 mmol/L [facility] Creatinine [Mass/Vol] 0.56 mg/dL 0.52 - 1.04 mg/dL [facility] GFR/1.73 sq M.predicted MDRD (S/P/Bld) [Vol rate/Area] - PINF [facility] Glucose [Mass/Vol] 154 mg/dL High 70 - 100 mg/dL [facility] Interpretation and review of laboratory results Abnormal [facility] Potassium [Moles/Vol] 4.8 mmol/L 3.5 - 5.1 mmol/L [facility] Sodium [Moles/Vol] 136 mmol/L 135 - 145 mmol/L [facility] Urea nitrogen [Mass/Vol] 17 mg/dL 7 - 17 mg/dL [facility] CARECOORDon 10-15-2022 [facility] Direction informatics coordinator notified of pt dc to [facility] Normal [facility] Normal [facility] Per CM request, p t discharge orders faxed to . Normal [facility] Normal [facility] CBC W Auto Differential pane l (Bld)Ordered By: Miguel Lockwood on 10-15-2022 Basophils (Bld) [#/Vol] 0.0 10*3/uL 0.0 - 0.2 10*3/uL [facility] Basophils/100 WBC (Bld) 0.2 % 0.0 - 2.0 % [facility] Eosinophils (Bld) [#/Vol] 0.5 10*3/uL 0.0 - 0.5 10*3/uL [facility] Eosinophils/100 WBC (Bld) 3.6 % 1.0 - 6.0 % [facility] Erythrocyte distribution width (RBC) [Ratio] 15.0 % High 11.5 - 14.5 % [facility] Hematocrit (Bld) [Volume fraction] 28.0 % Low 35.0 - 47.0 % [facility] Hemoglobin (Bld) [Mass/Vol] 9.0 g/dL Low 11.7 - 16.0 g/dL [facility] Interpretation and review of laboratory results Abnormal [facility] Lymphocytes (Bld) [#/Vol] 2.4 10*3/uL 1.0 - 4.3 10*3/uL [facility] Lymphocytes/100 WBC (Bld) 17.7 % Low 20.0 - 40.0 % [facility] MCH (RBC) [Entitic mass] 29.3 pg 26.0 - 34.0 pg [facility] MCHC (RBC) [Mass/Vol] 32.2 % 32.0 - 36.0 % [facility] MCV (RBC) [Entitic vol] 90.8 fL 80.0 - 98.0 fL [facility] Monocytes (Bld) [#/Vol] 0.8 10*3/uL 0.0 - 0.8 10*3/uL [facility] Monocytes/100 WBC (Bld) 5.8 % 2.0 - 10.0 % [facility] Neutrophils (Bld) [#/Vol] 9.9 10*3/uL High 1.8 - 7.0 10*3/uL [facility] Neutrophils/100 WBC (Bld) 72.7 % 40.0 - 80.0 % [facility] Nucleated RBC/100 WBC (Bld) [Ratio] 0.0 % [facility] Platelet mean volume (Bld) [Entitic vol] 8.0 fL 7.4 - 12.4 fL [facility] Platelets (Bld) [#/Vol] 301 10*3/uL 140 - 440 10*3/uL [facility] RBC (Bld) [#/Vol] 3.09 10*6/uL Low 3.8 - 5.20 10*6/uL [facility] WBC (Bld) [#/Vol] 13.6 10*3/uL High 3.6 - 10.7 10*3/uL [facility] Laboratory - Chemistry and C hemistry - challengeon 10-15-2022 Glucose [Mass/Vol] 231 mg/dL High 70 - 100 mg/dL [facility] Glucose [Mass/Vol] 118 mg/dL High 70 - 100 mg/dL [facility] No Panel Informationon 10-15 Interpretation and review of laboratory results Abnormal [facility] Interpretation and review of laboratory results Abnormal [facility] Nursing Noteon 10-15-2022 Nursing Note Report given to HAMILTON knapp at [facility]. Pt waiting on transport. Normal [facility] Progress Noteon 10-15-2022 Progress Note Femoral head on that failed nail, no tumor. Normal [facility] Progress Note Normal [facility] Bacteria identified Aer cx N om (Unsp spec)Ordered By: Lanre Gonsalez on 10-14-2022 Gram Stain Result Rare Polymorphonucle ar leukocytes per low power field [facility] Gram Stain Result No organisms seen [facility] Bacteria identified Aer cx N om (Unsp spec)Ordered By: Tiana Pollard on 10-14-2022 Gram Stain Result Rare Polymorphonucle ar leukocytes per low power field [facility] Gram Stain Result No organisms seen [facility] Bacteria identified Aer cx N om (Unsp spec)on 10-14-2022 Gram Stain Result Moderate Polymorphonuclear leukocytes per low power field [facility] Gram Stain Result No organisms seen [facility] Basic metabolic 1998 panelon 10-14-2022 Anion gap [Moles/Vol] 6 mmol/L 3 - 13 mmol/L [facility] Calcium [Mass/Vol] 8.3 mg/dL Low 8.4 - 10. 4 mg/dL [facility] Chloride [Moles/Vol] 102 mmol/L 98 - 10 7 mmol/L [facility] CO2 [Moles/Vol] 29 mmol/L 22 - 30 mmol/L [facility] Creatinine [Mass/Vol] 0.58 mg/dL 0.52 - 1.04 mg/dL [facility] GFR/1.73 sq M.predicted MDRD (S/P/Bld) [Vol rate/Area] - PINF [facility] Glucose [Mass/Vol] 137 mg/dL High 70 - 100 mg/dL [facility] Interpretation and review of laboratory results Abnormal [facility] Potassium [Moles/Vol] 4.3 mmol/L 3.5 - 5.1 mmol/L [facility] Sodium [Moles/Vol] 136 mmol/L 135 - 145 mmol/L [facility] Urea nitrogen [Mass/Vol] 14 mg/dL 7 - 17 mg/dL [facility] CARECOORDon 10-14-2022 CAR[facility]OORD Normal [facility] CBC W Auto Differential pane l (Bld)on 10-14-2022 Basophils (Bld) [#/Vol] 0.1 10*3/uL 0.0 - 0.2 10*3/uL [facility] Basophils/100 WBC (Bld) 0.9 % 0.0 - 2.0 % [facility] Eosinophils (Bld) [#/Vol] 0.4 10*3/uL 0.0 - 0.5 10*3/uL [facility] Eosinophils/100 WBC (Bld) 3.4 % 1.0 - 6.0 % [facility] Erythrocyte distribution width (RBC) [Ratio] 14.9 % High 11.5 - 14.5 % [facility] Hematocrit (Bld) [Volume fraction] 28.2 % Low 35.0 - 47.0 % [facility] Hemoglobin (Bld) [Mass/Vol] 9.1 g/dL Low 11.7 - 16.0 g/dL [facility] Interpretation and review of laboratory results Abnormal [facility] Lymphocytes (Bld) [#/Vol] 3.3 10*3/uL 1.0 - 4.3 10*3/uL [facility] Lymphocytes/100 WBC (Bld) 27.4 % 20.0 - 40.0 % [facility] MCH (RBC) [Entitic mass] 29.5 pg 26.0 - 34.0 pg [facility] MCHC (RBC) [Mass/Vol] 32.3 % 32.0 - 36.0 % [facility] MCV (RBC) [Entitic vol] 91.4 fL 80.0 - 98.0 fL [facility] Monocytes (Bld) [#/Vol] 0.7 10*3/uL 0.0 - 0.8 10*3/uL [facility] Monocytes/100 WBC (Bld) 5.9 % 2.0 - 10.0 % [facility] Neutrophils (Bld) [#/Vol] 7.5 10*3/uL High 1.8 - 7.0 10*3/uL [facility] Neutrophils/100 WBC (Bld) 62.4 % 40.0 - 80.0 % [facility] Nucleated RBC/100 WBC (Bld) [Ratio] 0.1 % [facility] Platelet mean volume (Bld) [Entitic vol] 8.0 fL 7.4 - 12.4 fL [facility] Platelets (Bld) [#/Vol] 261 10*3/uL 140 - 440 10*3/uL [facility] RBC (Bld) [#/Vol] 3.08 10*6/uL Low 3.8 - 5.20 10*6/uL [facility] WBC (Bld) [#/Vol] 12.1 10*3/uL High 3.6 - 10.7 10*3/uL [facility] Laboratory - Chemistry and C hemistry - challengeon 10-14-2022 Glucose [Mass/Vol] 190 mg/dL High 70 - 100 mg/dL [facility] Glucose [Mass/Vol] 209 mg/dL High 70 - 100 mg/dL [facility] Glucose [Mass/Vol] 193 mg/dL High 70 - 100 mg/dL [facility] Glucose [Mass/Vol] 88 mg/dL 70 - 100 mg/dL [facility] Laboratory - Microbiology an d Antimicrobial susceptibilityOrdered By: Lanre Gonsalez on 10-14-2022 Bacteria identified Aer cx Nom (Unsp spec) No growth at 72 hours [facility] Laboratory - Microbiology an d Antimicrobial susceptibilityOrdered By: Tiana Pollard on 10-14-2022 Bacteria identified Aer cx Nom (Unsp spec) No growth at 72 hours [facility] Laboratory - Microbiology an d Antimicrobial susceptibilityon 10-14-2022 Bacteria identified Aer cx Nom (Unsp spec) No growth at 72 hours [facility] No Panel Informationon 10-14 Interpretation and review of laboratory results Abnormal [facility] Interpretation and review of laboratory results Abnormal [facility] Interpretation and review of laboratory results Abnormal [facility] Interpretation and review of laboratory results Normal [facility] Blood Expiration Date [id number] [facility] Crossmatch interpretation COMP [facility] Dispense Status Released from Crossmatch [facility] Product Blood Type 5100 [facility] PRODUCT CODE [id number] [facility] ABO O [facility] Number [id number] [facility] Number [id number] [facility] RH Positive [facility] Unit Volume 300 mL [facility] Progress Noteon 10-14-2022 Progress Note Normal [facility] Progress Note Normal [facility] Progress Note Normal [facility] Basic metabolic 1998 panelon 10-13-2022 Anion gap [Moles/Vol] 8 mmol/L 3 - 13 mmol/L [facility] Calcium [Mass/Vol] 8.3 mg/dL Low 8.4 - 10. 4 mg/dL [facility] Chloride [Moles/Vol] 99 mmol/L 98 - 10 7 mmol/L [facility] CO2 [Moles/Vol] 29 mmol/L 22 - 30 mmol/L [facility] Creatinine [Mass/Vol] 0.55 mg/dL 0.52 - 1.04 mg/dL [facility] GFR/1.73 sq M.predicted MDRD (S/P/Bld) [Vol rate/Area] - PINF [facility] Glucose [Mass/Vol] 103 mg/dL High 70 - 100 mg/dL [facility] Interpretation and review of laboratory results Abnormal [facility] Potassium [Moles/Vol] 4.2 mmol/L 3.5 - 5.1 mmol/L [facility] Sodium [Moles/Vol] 136 mmol/L 135 - 145 mmol/L [facility] Urea nitrogen [Mass/Vol] 14 mg/dL 7 - 17 mg/dL [facility] CARECOORDon 10-13-2022 CARECOHEMET Normal [facility] CBC W Auto Differential pane l (Bld)on 10-13-2022 Basophils (Bld) [#/Vol] 0.0 10*3/uL 0.0 - 0.2 10*3/uL [facility] Basophils/100 WBC (Bld) 0.1 % 0.0 - 2.0 % [facility] Eosinophils (Bld) [#/Vol] 0.2 10*3/uL 0.0 - 0.5 10*3/uL [facility] Eosinophils/100 WBC (Bld) 1.6 % 1.0 - 6.0 % [facility] Erythrocyte distribution width (RBC) [Ratio] 15.0 % High 11.5 - 14.5 % [facility] Hematocrit (Bld) [Volume fraction] 29.8 % Low 35.0 - 47.0 % [facility] Hemoglobin (Bld) [Mass/Vol] 9.5 g/dL Low 11.7 - 16.0 g/dL [facility] Interpretation and review of laboratory results Abnormal [facility] Lymphocytes (Bld) [#/Vol] 3.8 10*3/uL 1.0 - 4.3 10*3/uL [facility] Lymphocytes/100 WBC (Bld) 26.8 % 20.0 - 40.0 % [facility] MCH (RBC) [Entitic mass] 29.2 pg 26.0 - 34.0 pg [facility] MCHC (RBC) [Mass/Vol] 31.9 % Low 32.0 - 36.0 % [facility] MCV (RBC) [Entitic vol] 91.7 fL 80.0 - 98.0 fL [facility] Monocytes (Bld) [#/Vol] 1.0 10*3/uL High 0.0 - 0.8 10*3/uL [facility] Monocytes/100 WBC (Bld) 7.1 % 2.0 - 10.0 % [facility] Neutrophils (Bld) [#/Vol] 9.0 10*3/uL High 1.8 - 7.0 10*3/uL [facility] Neutrophils/100 WBC (Bld) 64.4 % 40.0 - 80.0 % [facility] Nucleated RBC/100 WBC (Bld) [Ratio] 0.0 % [facility] Platelet mean volume (Bld) [Entitic vol] 7.9 fL 7.4 - 12.4 fL [facility] Platelets (Bld) [#/Vol] 247 10*3/uL 140 - 440 10*3/uL [facility] RBC (Bld) [#/Vol] 3.25 10*6/uL Low 3.8 - 5.20 10*6/uL [facility] [facility] WBC (Bld) [#/Vol] 14.1 10*3/uL High 3.6 - 10.7 10*3/uL [facility] Laboratory - Chemistry and C hemistry - challengeon 10-13-2022 Glucose [Mass/Vol] 213 mg/dL High 70 - 100 mg/dL [facility] Glucose [Mass/Vol] 135 mg/dL High 70 - 100 mg/dL [facility] Glucose [Mass/Vol] 133 mg/dL High 70 - 100 mg/dL [facility] Glucose [Mass/Vol] 109 mg/dL High 70 - 100 mg/dL [facility] No Panel Informationon 10-13 Interpretation and review of laboratory results Abnormal [facility] Interpretation and review of laboratory results Abnormal [facility] Interpretation and review of laboratory results Abnormal [facility] Interpretation and review of laboratory results Abnormal [facility] Progress Noteon 10-13-2022 Progress Note Normal [facility] Progress Note Normal [facility] Progress Note Normal [facility] Basic metabolic 1998 panelon 10-12-2022 Anion gap [Moles/Vol] 12 mmol/L 3 - 13 mmol/L [facility] Calcium [Mass/Vol] 8.6 mg/dL 8.4 - 10. 4 mg/dL [facility] Chloride [Moles/Vol] 101 mmol/L 98 - 10 7 mmol/L [facility] CO2 [Moles/Vol] 27 mmol/L 22 - 30 mmol/L [facility] Creatinine [Mass/Vol] 0.64 mg/dL 0.52 - 1.04 mg/dL [facility] GFR/1.73 sq M.predicted MDRD (S/P/Bld) [Vol rate/Area] - PINF [facility] Glucose [Mass/Vol] 212 mg/dL High 70 - 100 mg/dL [facility] Interpretation and review of laboratory results Abnormal [facility] Potassium [Moles/Vol] 4.4 mmol/L 3.5 - 5.1 mmol/L [facility] Sodium [Moles/Vol] 140 mmol/L 135 - 145 mmol/L [facility] Urea nitrogen [Mass/Vol] 17 mg/dL 7 - 17 mg/dL [facility] CARECOORDon 10-12-2022 [facility] coverage for toda y. Plan is for pt to return to [facility] when stable. Ambulance form completed and placed on pt's chart. Normal [facility] CARECOORD Normal [facility] CBC W Auto Differential pane l (Bld)Ordered By: Jamie South on 10-12-2022 Basophils (Bld) [#/Vol] 0.0 10*3/uL 0.0 - 0.2 10*3/uL [facility] Basophils/100 WBC (Bld) 0.1 % 0.0 - 2.0 % [facility] Eosinophils (Bld) [#/Vol] 0.1 10*3/uL 0.0 - 0.5 10*3/uL [facility] Eosinophils/100 WBC (Bld) 0.6 % Low 1.0 - 6.0 % [facility] Erythrocyte distribution width (RBC) [Ratio] 14.8 % High 11.5 - 14.5 % [facility] Hematocrit (Bld) [Volume fraction] 28.0 % Low 35.0 - 47.0 % [facility] Hemoglobin (Bld) [Mass/Vol] 9.1 g/dL Low 11.7 - 16.0 g/dL [facility] Interpretation and review of laboratory results Abnormal [facility] Lymphocytes (Bld) [#/Vol] 2.6 10*3/uL 1.0 - 4.3 10*3/uL [facility] Lymphocytes/100 WBC (Bld) 16.7 % Low 20.0 - 40.0 % [facility] MCH (RBC) [Entitic mass] 29.7 pg 26.0 - 34.0 pg [facility] MCHC (RBC) [Mass/Vol] 32.4 % 32.0 - 36.0 % [facility] MCV (RBC) [Entitic vol] 91.7 fL 80.0 - 98.0 fL [facility] Monocytes (Bld) [#/Vol] 1.0 10*3/uL High 0.0 - 0.8 10*3/uL [facility] Monocytes/100 WBC (Bld) 6.8 % 2.0 - 10.0 % [facility] Neutrophils (Bld) [#/Vol] 11.6 10*3/uL High 1.8 - 7.0 10*3/uL [facility] Neutrophils/100 WBC (Bld) 75.8 % 40.0 - 80.0 % [facility] Nucleated RBC/100 WBC (Bld) [Ratio] 0.0 % [facility] Platelet mean volume (Bld) [Entitic vol] 8.1 fL 7.4 - 12.4 fL [facility] Platelets (Bld) [#/Vol] 233 10*3/uL 140 - 440 10*3/uL [facility] RBC (Bld) [#/Vol] 3.05 10*6/uL Low 3.8 - 5.20 10*6/uL [facility] WBC (Bld) [#/Vol] 15.3 10*3/uL High 3.6 - 10.7 10*3/uL [facility] IDNon 10-12-2022 IDN Normal [facility] Laboratory - Chemistry and C hemistry - challengeon 10-12-2022 Glucose [Mass/Vol] 206 mg/dL High 70 - 100 mg/dL [facility] Glucose [Mass/Vol] 170 mg/dL High 70 - 100 mg/dL [facility] Glucose [Mass/Vol] 207 mg/dL High 70 - 100 mg/dL [facility] Glucose [Mass/Vol] 120 mg/dL High 70 - 100 mg/dL [facility] No Panel Informationon 10-12 Interpretation and review of laboratory results Abnormal [facility] Interpretation and review of laboratory results Abnormal [facility] Interpretation and review of laboratory results Abnormal [facility] Interpretation and review of laboratory results Abnormal [facility] Progress Noteon 10-12-2022 Progress Note Normal [facility] Progress Note Normal [facility] Progress Note Normal [facility] Progress Note Normal [facility] Basic metabolic 1998 panelon 10-11-2022 Anion gap [Moles/Vol] 15 mmol/L High 3 - 13 mmol/L [facility] Calcium [Mass/Vol] 9.0 mg/dL 8.4 - 10. 4 mg/dL [facility] Chloride [Moles/Vol] 99 mmol/L 98 - 10 7 mmol/L [facility] CO2 [Moles/Vol] 20 mmol/L Low 22 - 30 mmol/L [facility] Creatinine [Mass/Vol] 0.62 mg/dL 0.52 - 1.04 mg/dL [facility] GFR/1.73 sq M.predicted MDRD (S/P/Bld) [Vol rate/Area] - PINF [facility] Glucose [Mass/Vol] 323 mg/dL High 70 - 100 mg/dL [facility] Interpretation and review of laboratory results Abnormal [facility] Potassium [Moles/Vol] 5.0 mmol/L 3.5 - 5.1 mmol/L [facility] Sodium [Moles/Vol] 135 mmol/L 135 - 145 mmol/L [facility] Urea nitrogen [Mass/Vol] 20 mg/dL High 7 - 17 mg/dL [facility] CARECOORDon 10-11-2022 [place] Normal [facility] CAREPLNon 10-11-2022 CAREPLN Normal [facility] CBC W Auto Differential pane l (Bld)Ordered By: Priya Torres on 10-11-2022 Basophils (Bld) [#/Vol] 0.0 10*3/uL 0.0 - 0.2 10*3/uL [facility] Basophils/100 WBC (Bld) 0.0 % 0.0 - 2.0 % [facility] Eosinophils (Bld) [#/Vol] 0.0 10*3/uL 0.0 - 0.5 10*3/uL [facility] Eosinophils/100 WBC (Bld) 0.0 % Low 1.0 - 6.0 % [facility] Erythrocyte distribution width (RBC) [Ratio] 14.8 % High 11.5 - 14.5 % [facility] Hematocrit (Bld) [Volume fraction] 29.5 % Low 35.0 - 47.0 % [facility] Hemoglobin (Bld) [Mass/Vol] 9.7 g/dL Low 11.7 - 16.0 g/dL [facility] Interpretation and review of laboratory results Abnormal [facility] Lymphocytes (Bld) [#/Vol] 0.4 10*3/uL Low 1.0 - 4.3 10*3/uL [facility] Lymphocytes/100 WBC (Bld) 3.1 % Low 20.0 - 40.0 % [facility] MCH (RBC) [Entitic mass] 29.9 pg 26.0 - 34.0 pg [facility] MCHC (RBC) [Mass/Vol] 32.9 % 32.0 - 36.0 % [facility] MCV (RBC) [Entitic vol] 91.1 fL 80.0 - 98.0 fL [facility] Monocytes (Bld) [#/Vol] 0.2 10*3/uL 0.0 - 0.8 10*3/uL [facility] Monocytes/100 WBC (Bld) 1.5 % Low 2.0 - 10.0 % [facility] Neutrophils (Bld) [#/Vol] 13.3 10*3/uL High 1.8 - 7.0 10*3/uL [facility] Neutrophils/100 WBC (Bld) 95.4 % High 40.0 - 80.0 % [facility] Nucleated RBC/100 WBC (Bld) [Ratio] 0.0 % [facility] Platelet mean volume (Bld) [Entitic vol] 8.3 fL 7.4 - 12.4 fL [facility] Platelets (Bld) [#/Vol] 207 10*3/uL 140 - 440 10*3/uL [facility] RBC (Bld) [#/Vol] 3.24 10*6/uL Low 3.8 - 5.20 10*6/uL [facility] WBC (Bld) [#/Vol] 14.0 10*3/uL High 3.6 - 10.7 10*3/uL [facility] Laboratory - Chemistry and C hemistry - challengeon 10-11-2022 Glucose [Mass/Vol] 188 mg/dL High 70 - 100 mg/dL [facility] Glucose [Mass/Vol] 303 mg/dL High 70 - 100 mg/dL [facility] Glucose [Mass/Vol] mg/dL High 70 - 100 mg/dL [facility] Glucose [Mass/Vol] 318 mg/dL High 70 - 100 mg/dL [facility] No Panel Informationon 10-11 Interpretation and review of laboratory results Abnormal [facility] Interpretation and review of laboratory results Abnormal [facility] Interpretation and review of laboratory results Abnormal [facility] Interpretation and review of laboratory results Abnormal [facility] Progress Noteon 10-11-2022 Progress Note Normal [facility] Progress Note Normal [facility] Progress Note Normal [facility] Progress Note Normal [facility] Progress Note Normal [facility] Progress Note Normal [facility] [id number] 10-10-2022 [id number] Normal [facility] Anesthesia Noteon 10-10-2022 Anesthesia Note Normal [facility] Anesthesia Note Normal [facility] Basic metabolic 1998 panelon 10-10-2022 Anion gap [Moles/Vol] 9 mmol/L 3 - 13 mmol/L [facility] Calcium [Mass/Vol] 8.9 mg/dL 8.4 - 10. 4 mg/dL [facility] Chloride [Moles/Vol] 101 mmol/L 98 - 10 7 mmol/L [facility] CO2 [Moles/Vol] 25 mmol/L 22 - 30 mmol/L [facility] Creatinine [Mass/Vol] 0.72 mg/dL 0.52 - 1.04 mg/dL [facility] GFR/1.73 sq M.predicted MDRD (S/P/Bld) [Vol rate/Area] - PINF [facility] Glucose [Mass/Vol] 268 mg/dL High 70 - 100 mg/dL [facility] Interpretation and review of laboratory results Abnormal [facility] Potassium [Moles/Vol] 4.7 mmol/L 3.5 - 5.1 mmol/L [facility] Sodium [Moles/Vol] 135 mmol/L 135 - 145 mmol/L [facility] Urea nitrogen [Mass/Vol] 24 mg/dL High 7 - 17 mg/dL [facility] Blood type and Crossmatch pa cristofer (Bld)on 10-10-2022 ABO group Nom (Bld) O [facility] Blood group antibody screen GEL Ql Negative [facility] D Ag Ql (RBC) Positive [facility] CARECOORDon 10-10-2022 CARECOORD To OR via bedhossein ter at bedside. Normal [facility] CARECOORD Normal [facility] CBC W Auto Differential pane l (Bld)on 10-10-2022 Basophils (Bld) [#/Vol] 0.0 10*3/uL 0.0 - 0.2 10*3/uL [facility] Basophils/100 WBC (Bld) 0.4 % 0.0 - 2.0 % [facility] Eosinophils (Bld) [#/Vol] 0.2 10*3/uL 0.0 - 0.5 10*3/uL [facility] Eosinophils/100 WBC (Bld) 1.9 % 1.0 - 6.0 % [facility] Erythrocyte distribution width (RBC) [Ratio] 14.2 % 11.5 - 14.5 % [facility] Hematocrit (Bld) [Volume fraction] 34.5 % Low 35.0 - 47.0 % [facility] Hemoglobin (Bld) [Mass/Vol] 11.3 g/dL Low 11.7 - 16.0 g/dL [facility] Interpretation and review of laboratory results Abnormal [facility] Lymphocytes (Bld) [#/Vol] 3.3 10*3/uL 1.0 - 4.3 10*3/uL [facility] Lymphocytes/100 WBC (Bld) 30.7 % 20.0 - 40.0 % [facility] MCH (RBC) [Entitic mass] 30.0 pg 26.0 - 34.0 pg [facility] MCHC (RBC) [Mass/Vol] 32.9 % 32.0 - 36.0 % [facility] MCV (RBC) [Entitic vol] 91.2 fL 80.0 - 98.0 fL [facility] Monocytes (Bld) [#/Vol] 0.6 10*3/uL 0.0 - 0.8 10*3/uL [facility] Monocytes/100 WBC (Bld) 5.8 % 2.0 - 10.0 % [facility] Neutrophils (Bld) [#/Vol] 6.7 10*3/uL 1.8 - 7.0 10*3/uL [facility] Neutrophils/100 WBC (Bld) 61.2 % 40.0 - 80.0 % [facility] Nucleated RBC/100 WBC (Bld) [Ratio] 0.1 % [facility] Platelet mean volume (Bld) [Entitic vol] 7.8 fL 7.4 - 12.4 fL [facility] Platelets (Bld) [#/Vol] 302 10*3/uL 140 - 440 10*3/uL [facility] RBC (Bld) [#/Vol] 3.78 10*6/uL Low 3.8 - 5.20 10*6/uL [facility] WBC (Bld) [#/Vol] 10.9 10*3/uL High 3.6 - 10.7 10*3/uL [facility] Hemoglobin (Bld) [Mass/Vol]O rdered By: Alicja Cool on 10-10-2022 Hematocrit (Bld) [Volume fraction] 32.4 % Low 35.0 - 47.0 % [facility] Interpretation and review of laboratory results Abnormal [facility] Laboratory - Chemistry and C hemistry - challengeon 10-10-2022 Glucose [Mass/Vol] 354 mg/dL High 70 - 100 mg/dL [facility] Glucose [Mass/Vol] 250 mg/dL High 70 - 100 mg/dL [facility] Glucose [Mass/Vol] 159 mg/dL High 70 - 100 mg/dL [facility] Glucose [Mass/Vol] 213 mg/dL High 70 - 100 mg/dL [facility] Laboratory - Coagulationon 0 10-10-2022 aPTT Coag (PPP) [Time] 25.3 s 20.0 - 30.5 s [facility] INR Coag (PPP) [Relative time] 1.0 {INR} 0.9 - 1.1 [facility] PT Coag (Bld) [Time] 10.3 s 9.0 - 1 2.0 s [facility] Laboratory - Hematology and Cell countsOrdered By: Alicja Cool on 10-10-2022 Hemoglobin (Bld) [Mass/Vol] 10.4 g/dL Low 11.7 - 16.0 g/dL [facility] [employer] No Panel Informationon 10-10 Interpretation and review of laboratory results Abnormal [facility] Interpretation and review of laboratory results Abnormal [facility] [employer] IMAGING Blood Expiration Date [id number] S [facility] Crossmatch interpretation COMP [facility] [employer] Dispense Status Transfused [facility] [employer] Product Blood Type 5100 [facility] [employer] PRODUCT CODE [id number] [facility] [employer] PRODUCT CODE [id number] [facility] ABO O [facility] [employer] Unit Number [id number] [facility] Unit Number [id number] [facility] RH Positive [facility] Unit Volume 300 mL [facility] Interpretation and review of laboratory results Abnormal [facility] Interpretation and review of laboratory results Abnormal [facility] Interpretation and review of laboratory results Normal [facility] Nursing Noteon 10-10-2022 Nursing Note Nitrocellulose Operator at bedside to b lock pt Normal [facility] Op Noteon 10-10-2022 Op Note Normal [facility] Progress Noteon 10-10-2022 Progress Note Normal [facility] Progress Note Normal [facility] Progress Note Normal [facility] Progress Note Normal [facility] Progress Note Normal [facility] XR FEMUR 2+ VW LEFTon 2022 XR FEMUR 2+ VW LEFT Normal [facility] XR Femur - left 2 [facility] Radiology Study observation (narrative) [facility] XR PELVIS 1-2 VIEWSon 2022 XR PELVIS 1-2 VIEWS Normal [facility] XR Pelvis 1 or 2 [facility] Radiology Study observation (narrative) [facility] XR Pelvis 1 or 2 ViewsOrdere d By: Gautam Freeman on 10-10-2022 [facility] Work Phone: Anesthesia Noteon 10-09-2022 Anesthesia Note Normal [facility] Basic metabolic 1998 panelon 10-09-2022 Anion gap [Moles/Vol] 10 mmol/L 3 - 13 mmol/L [facility] Calcium [Mass/Vol] 8.6 mg/dL 8.4 - 10. 4 mg/dL [facility] Chloride [Moles/Vol] 100 mmol/L 98 - 10 7 mmol/L [facility] CO2 [Moles/Vol] 25 mmol/L 22 - 30 mmol/L [facility] Creatinine [Mass/Vol] 0.70 mg/dL 0.52 - 1.04 mg/dL [facility] GFR/1.73 sq M.predicted MDRD (S/P/Bld) [Vol rate/Area] - PINF [facility] Glucose [Mass/Vol] 219 mg/dL High 70 - 100 mg/dL [facility] Interpretation and review of laboratory results Abnormal [facility] Potassium [Moles/Vol] 4.8 mmol/L 3.5 - 5.1 mmol/L [facility] Sodium [Moles/Vol] 134 mmol/L Low 135 - 145 mmol/L [facility] Urea nitrogen [Mass/Vol] 25 mg/dL High 7 - 17 mg/dL [facility] CARECOORDon 10-09-2022 CARECOORD Normal [facility] CBC W Auto Differential pane l (Bld)on 10-09-2022 Basophils (Bld) [#/Vol] 0.1 10*3/uL 0.0 - 0.2 10*3/uL [facility] Basophils/100 WBC (Bld) 0.8 % 0.0 - 2.0 % [facility] Eosinophils (Bld) [#/Vol] 0.3 10*3/uL 0.0 - 0.5 10*3/uL [facility] Eosinophils/100 WBC (Bld) 2.0 % 1.0 - 6.0 % [facility] Erythrocyte distribution width (RBC) [Ratio] 14.4 % 11.5 - 14.5 % [facility] Hematocrit (Bld) [Volume fraction] 32.3 % Low 35.0 - 47.0 % [facility] Hemoglobin (Bld) [Mass/Vol] 10.7 g/dL Low 11.7 - 16.0 g/dL [facility] Interpretation and review of laboratory results Abnormal [facility] Lymphocytes (Bld) [#/Vol] 4.1 10*3/uL 1.0 - 4.3 10*3/uL [facility] Lymphocytes/100 WBC (Bld) 30.3 % 20.0 - 40.0 % [facility] MCH (RBC) [Entitic mass] 29.7 pg 26.0 - 34.0 pg [facility] MCHC (RBC) [Mass/Vol] 33.0 % 32.0 - 36.0 % [facility] MCV (RBC) [Entitic vol] 89.8 fL 80.0 - 98.0 fL [facility] Monocytes (Bld) [#/Vol] 1.1 10*3/uL High 0.0 - 0.8 10*3/uL [facility] Monocytes/100 WBC (Bld) 8.0 % 2.0 - 10.0 % [facility] Neutrophils (Bld) [#/Vol] 8.1 10*3/uL High 1.8 - 7.0 10*3/uL [facility] Neutrophils/100 WBC (Bld) 58.9 % 40.0 - 80.0 % [facility] Nucleated RBC/100 WBC (Bld) [Ratio] 0.0 % [facility] Platelet mean volume (Bld) [Entitic vol] 8.3 fL 7.4 - 12.4 fL [facility] Platelets (Bld) [#/Vol] 329 10*3/uL 140 - 440 10*3/uL [facility] RBC (Bld) [#/Vol] 3.60 10*6/uL Low 3.8 - 5.20 10*6/uL [facility] WBC (Bld) [#/Vol] 13.7 10*3/uL High 3.6 - 10.7 10*3/uL [facility] Laboratory - Chemistry and C hemistry - challengeon 10-09-2022 Glucose [Mass/Vol] 253 mg/dL High 70 - 100 mg/dL [facility] [employer] Glucose [Mass/Vol] 229 mg/dL High 70 - 100 mg/dL [facility] Glucose [Mass/Vol] 248 mg/dL High 70 - 100 mg/dL [facility] Glucose [Mass/Vol] 178 mg/dL High 70 - 100 mg/dL [facility] No Panel Informationon 10-09 Interpretation and review of laboratory results Abnormal [facility] Interpretation and review of laboratory results Abnormal [facility] Interpretation and review of laboratory results Abnormal [facility] Interpretation and review of laboratory results Abnormal [facility] Progress Noteon 10-09-2022 Progress Note Normal [facility] Progress Note Normal [facility] Progress Note Normal [facility] XR FEMUR 2+ VW LEFTon 2022 XR FEMUR 2+ VW LEFT Normal [facility] XR Femur - left 2 [facility]son [facility] Radiology Study observation (narrative) [facility] XR Femur - left 2 ViewsOrder ed By: Norman Rodriguez on 10-09-2022 [facility] Work Phone: Basic metabolic 1998 panelon 10-08-2022 Anion gap [Moles/Vol] 11 mmol/L 3 - 13 mmol/L [facility] Calcium [Mass/Vol] 8.9 mg/dL 8.4 - 10. 4 mg/dL [facility] Chloride [Moles/Vol] 102 mmol/L 98 - 10 7 mmol/L [facility] CO2 [Moles/Vol] 23 mmol/L 22 - 30 mmol/L [facility] Creatinine [Mass/Vol] 0.89 mg/dL 0.52 - 1.04 mg/dL [facility] GFR/1.73 sq M.predicted MDRD (S/P/Bld) [Vol rate/Area] 70.7 mL/min/{1.73_m2} - PINF [facility] Glucose [Mass/Vol] 179 mg/dL High 70 - 100 mg/dL [facility] Interpretation and review of laboratory results Abnormal [facility] Potassium [Moles/Vol] 4.9 mmol/L 3.5 - 5.1 mmol/L [facility] Sodium [Moles/Vol] 136 mmol/L 135 - 145 mmol/L [facility] Urea nitrogen [Mass/Vol] 25 mg/dL High 7 - 17 mg/dL [facility] CBC W Auto Differential pane l (Bld)on 10-08-2022 Basophils (Bld) [#/Vol] 0.0 10*3/uL 0.0 - 0.2 10*3/uL [facility] Basophils/100 WBC (Bld) 0.3 % 0.0 - 2.0 % [facility] Eosinophils (Bld) [#/Vol] 0.2 10*3/uL 0.0 - 0.5 10*3/uL [facility] Eosinophils/100 WBC (Bld) 1.3 % 1.0 - 6.0 % [facility] Erythrocyte distribution width (RBC) [Ratio] 14.7 % High 11.5 - 14.5 % [facility] Hematocrit (Bld) [Volume fraction] 35.9 % 35.0 - 47.0 % [facility] Hemoglobin (Bld) [Mass/Vol] 11.7 g/dL 11.7 - 16.0 g/dL [facility] Interpretation and review of laboratory results Abnormal [facility] Lymphocytes (Bld) [#/Vol] 3.7 10*3/uL 1.0 - 4.3 10*3/uL [facility] Lymphocytes/100 WBC (Bld) 29.1 % 20.0 - 40.0 % [facility] MCH (RBC) [Entitic mass] 30.2 pg 26.0 - 34.0 pg [facility] MCHC (RBC) [Mass/Vol] 32.5 % 32.0 - 36.0 % [facility] MCV (RBC) [Entitic vol] 92.8 fL 80.0 - 98.0 fL [facility] Monocytes (Bld) [#/Vol] 0.9 10*3/uL High 0.0 - 0.8 10*3/uL [facility] Monocytes/100 WBC (Bld) 6.7 % 2.0 - 10.0 % [facility] Neutrophils (Bld) [#/Vol] 8.1 10*3/uL High 1.8 - 7.0 10*3/uL [facility] Neutrophils/100 WBC (Bld) 62.6 % 40.0 - 80.0 % [facility] Nucleated RBC/100 WBC (Bld) [Ratio] 0.1 % [facility] Platelet mean volume (Bld) [Entitic vol] 8.0 fL 7.4 - 12.4 fL [facility] Platelets (Bld) [#/Vol] 353 10*3/uL 140 - 440 10*3/uL [facility] RBC (Bld) [#/Vol] 3.87 10*6/uL 3.8 - 5.20 10*6/uL [facility] WBC (Bld) [#/Vol] 12.9 10*3/uL High 3.6 - 10.7 10*3/uL [facility] Laboratory - Chemistry and C hemistry - challengeon 10-08-2022 Glucose [Mass/Vol] 193 mg/dL High 70 - 100 mg/dL [facility] Glucose [Mass/Vol] 241 mg/dL High 70 - 100 mg/dL [facility] Glucose [Mass/Vol] 271 mg/dL High 70 - 100 mg/dL [facility] Glucose [Mass/Vol] 149 mg/dL High 70 - 100 mg/dL [facility] No Panel Informationon 10-08 Interpretation and review of laboratory results Abnormal [facility] Interpretation and review of laboratory results Abnormal [facility] Interpretation and review of laboratory results Abnormal [facility] Interpretation and review of laboratory results Abnormal [facility] Progress Noteon 10-08-2022 Progress Note Normal [facility] Basic metabolic 1998 panelon 10-07-2022 Anion gap [Moles/Vol] 10 mmol/L 3 - 13 mmol/L [facility] Calcium [Mass/Vol] 9.2 mg/dL 8.4 - 10. 4 mg/dL [facility] Chloride [Moles/Vol] 103 mmol/L 98 - 10 7 mmol/L [facility] CO2 [Moles/Vol] 23 mmol/L 22 - 30 mmol/L [facility] Creatinine [Mass/Vol] 0.78 mg/dL 0.52 - 1.04 mg/dL [facility] GFR/1.73 sq M.predicted MDRD (S/P/Bld) [Vol rate/Area] 82.9 mL/min/{1.73_m2} - PINF [facility] Glucose [Mass/Vol] 130 mg/dL High 70 - 100 mg/dL [facility] Interpretation and review of laboratory results Abnormal [facility] Potassium [Moles/Vol] 4.4 mmol/L 3.5 - 5.1 mmol/L [facility] Sodium [Moles/Vol] 136 mmol/L 135 - 145 mmol/L [facility] Urea nitrogen [Mass/Vol] 26 mg/dL High 7 - 17 mg/dL [facility] CBC W Auto Differential pane l (Bld)Ordered By: Viji Steven on 10-07-2022 Basophils (Bld) [#/Vol] 0.0 10*3/uL 0.0 - 0.2 10*3/uL [facility] Basophils/100 WBC (Bld) 0.3 % 0.0 - 2.0 % [facility] Eosinophils (Bld) [#/Vol] 0.2 10*3/uL 0.0 - 0.5 10*3/uL [facility] Eosinophils/100 WBC (Bld) 1.8 % 1.0 - 6.0 % [facility] Erythrocyte distribution width (RBC) [Ratio] 14.5 % 11.5 - 14.5 % [facility] Hematocrit (Bld) [Volume fraction] 36.4 % 35.0 - 47.0 % [facility] Hemoglobin (Bld) [Mass/Vol] 12.0 g/dL 11.7 - 16.0 g/dL [facility] Interpretation and review of laboratory results Abnormal [facility] Lymphocytes (Bld) [#/Vol] 3.5 10*3/uL 1.0 - 4.3 10*3/uL [facility] Lymphocytes/100 WBC (Bld) 31.1 % 20.0 - 40.0 % [facility] MCH (RBC) [Entitic mass] 29.9 pg 26.0 - 34.0 pg [facility] MCHC (RBC) [Mass/Vol] 33.0 % 32.0 - 36.0 % [facility] MCV (RBC) [Entitic vol] 90.4 fL 80.0 - 98.0 fL [facility] Monocytes (Bld) [#/Vol] 0.8 10*3/uL 0.0 - 0.8 10*3/uL [facility] Monocytes/100 WBC (Bld) 7.2 % 2.0 - 10.0 % [facility] Neutrophils (Bld) [#/Vol] 6.7 10*3/uL 1.8 - 7.0 10*3/uL [facility] Neutrophils/100 WBC (Bld) 59.6 % 40.0 - 80.0 % [facility] Nucleated RBC/100 WBC (Bld) [Ratio] 0.0 % [facility] Platelet mean volume (Bld) [Entitic vol] 7.7 fL 7.4 - 12.4 fL [facility] Platelets (Bld) [#/Vol] 382 10*3/uL 140 - 440 10*3/uL [facility] RBC (Bld) [#/Vol] 4.02 10*6/uL 3.8 - 5.20 10*6/uL [facility] WBC (Bld) [#/Vol] 11.3 10*3/uL High 3.6 - 10.7 10*3/uL [facility] Laboratory - Chemistry and C hemistry - challengeon 10-07-2022 Glucose [Mass/Vol] 246 mg/dL High 70 - 100 mg/dL [facility] Glucose [Mass/Vol] 308 mg/dL High 70 - 100 mg/dL [facility] Glucose [Mass/Vol] 136 mg/dL High 70 - 100 mg/dL [facility] Glucose [Mass/Vol] 109 mg/dL High 70 - 100 mg/dL [facility] No Panel Informationon 10-07 Interpretation and review of laboratory results Abnormal [facility] Interpretation and review of laboratory results Abnormal [facility] Interpretation and review of laboratory results Abnormal [facility] Interpretation and review of laboratory results Abnormal [facility] Progress Noteon 10-07-2022 Progress Note Normal [facility] Basic metabolic 1998 panelon 10-06-2022 Anion gap [Moles/Vol] 11 mmol/L 3 - 13 mmol/L [facility] Calcium [Mass/Vol] 9.0 mg/dL 8.4 - 10. 4 mg/dL [facility] Chloride [Moles/Vol] 103 mmol/L 98 - 10 7 mmol/L [facility] CO2 [Moles/Vol] 24 mmol/L 22 - 30 mmol/L [facility] Creatinine [Mass/Vol] 0.72 mg/dL 0.52 - 1.04 mg/dL [facility] GFR/1.73 sq M.predicted MDRD (S/P/Bld) [Vol rate/Area] - PINF [facility] Glucose [Mass/Vol] 114 mg/dL High 70 - 100 mg/dL [facility] Interpretation and review of laboratory results Abnormal [facility] Potassium [Moles/Vol] 4.8 mmol/L 3.5 - 5.1 mmol/L [facility] Sodium [Moles/Vol] 138 mmol/L 135 - 145 mmol/L [facility] Urea nitrogen [Mass/Vol] 27 mg/dL High 7 - 17 mg/dL [facility] CARECOORDon 10-06-2022 CARECOHEMET Normal [facility] CBC W Auto Differential pane l (Bld)Ordered By: Silvia Alba on 10-06-2022 Basophils (Bld) [#/Vol] 0.0 10*3/uL 0.0 - 0.2 10*3/uL [facility] Basophils/100 WBC (Bld) 0.4 % 0.0 - 2.0 % [facility] Eosinophils (Bld) [#/Vol] 0.2 10*3/uL 0.0 - 0.5 10*3/uL [facility] Eosinophils/100 WBC (Bld) 1.3 % 1.0 - 6.0 % [facility] Erythrocyte distribution width (RBC) [Ratio] 14.7 % High 11.5 - 14.5 % [facility] Hematocrit (Bld) [Volume fraction] 36.0 % 35.0 - 47.0 % [facility] Hemoglobin (Bld) [Mass/Vol] 11.5 g/dL Low 11.7 - 16.0 g/dL [facility] Interpretation and review of laboratory results Abnormal [facility] Lymphocytes (Bld) [#/Vol] 4.4 10*3/uL High 1.0 - 4.3 10*3/uL [facility] Lymphocytes/100 WBC (Bld) 36.4 % 20.0 - 40.0 % [facility] MCH (RBC) [Entitic mass] 29.6 pg 26.0 - 34.0 pg [facility] MCHC (RBC) [Mass/Vol] 32.0 % 32.0 - 36.0 % [facility] MCV (RBC) [Entitic vol] 92.5 fL 80.0 - 98.0 fL [facility] Monocytes (Bld) [#/Vol] 0.9 10*3/uL High 0.0 - 0.8 10*3/uL [facility] Monocytes/100 WBC (Bld) 7.3 % 2.0 - 10.0 % [facility] Neutrophils (Bld) [#/Vol] 6.7 10*3/uL 1.8 - 7.0 10*3/uL [facility] Neutrophils/100 WBC (Bld) 54.6 % 40.0 - 80.0 % [facility] Nucleated RBC/100 WBC (Bld) [Ratio] 0.1 % [facility] Platelet mean volume (Bld) [Entitic vol] 8.0 fL 7.4 - 12.4 fL [facility] Platelets (Bld) [#/Vol] 350 10*3/uL 140 - 440 10*3/uL [facility] RBC (Bld) [#/Vol] 3.90 10*6/uL 3.8 - 5.20 10*6/uL [facility] WBC (Bld) [#/Vol] 12.2 10*3/uL High 3.6 - 10.7 10*3/uL [facility] Consulton 10-06-2022 Consult Normal [facility] Laboratory - Chemistry and C hemistry - challengeon 10-06-2022 Glucose [Mass/Vol] 280 mg/dL High 70 - 100 mg/dL [facility] Glucose [Mass/Vol] 205 mg/dL High 70 - 100 mg/dL [facility] Glucose [Mass/Vol] 231 mg/dL High 70 - 100 mg/dL [facility] Glucose [Mass/Vol] 119 mg/dL High 70 - 100 mg/dL [facility] No Panel Informationon 10-06 Interpretation and review of laboratory results Abnormal [facility] Interpretation and review of laboratory results Abnormal [facility] Interpretation and review of laboratory results Abnormal [facility] Interpretation and review of laboratory results Abnormal [facility] Progress Noteon 10-06-2022 Progress Note Normal [facility] Basic metabolic 1998 panelOr dered By: Jennifer Maguire on 10-05-2022 Anion gap [Moles/Vol] 9 mmol/L 3 - 13 mmol/L [facility] Calcium [Mass/Vol] 9.2 mg/dL 8.4 - 10. 4 mg/dL [facility] Chloride [Moles/Vol] 102 mmol/L 98 - 10 7 mmol/L [facility] CO2 [Moles/Vol] 27 mmol/L 22 - 30 mmol/L [facility] Creatinine [Mass/Vol] 0.88 mg/dL 0.52 - 1.04 mg/dL [facility] GFR/1.73 sq M.predicted MDRD (S/P/Bld) [Vol rate/Area] 71.7 mL/min/{1.73_m2} - PINF [facility] Glucose [Mass/Vol] 95 mg/dL 70 - 100 mg/dL [facility] Interpretation and review of laboratory results Abnormal [facility] Potassium [Moles/Vol] 5.1 mmol/L 3.5 - 5.1 mmol/L [facility] Sodium [Moles/Vol] 138 mmol/L 135 - 145 mmol/L [facility] Urea nitrogen [Mass/Vol] 27 mg/dL High 7 - 17 mg/dL [facility] CBC W Auto Differential pane l (Bld)Ordered By: Mikal Novoa on 10-05-2022 Basophils (Bld) [#/Vol] 0.0 10*3/uL 0.0 - 0.2 10*3/uL [facility] Basophils/100 WBC (Bld) 0.3 % 0.0 - 2.0 % [facility] Eosinophils (Bld) [#/Vol] 0.2 10*3/uL 0.0 - 0.5 10*3/uL [facility] Eosinophils/100 WBC (Bld) 1.7 % 1.0 - 6.0 % [facility] Erythrocyte distribution width (RBC) [Ratio] 14.7 % High 11.5 - 14.5 % [facility] Hematocrit (Bld) [Volume fraction] 36.6 % 35.0 - 47.0 % [facility] Hemoglobin (Bld) [Mass/Vol] 12.0 g/dL 11.7 - 16.0 g/dL [facility] Interpretation and review of laboratory results Abnormal [facility] Lymphocytes (Bld) [#/Vol] 3.7 10*3/uL 1.0 - 4.3 10*3/uL [facility] Lymphocytes/100 WBC (Bld) 30.5 % 20.0 - 40.0 % [facility] MCH (RBC) [Entitic mass] 30.1 pg 26.0 - 34.0 pg [facility] MCHC (RBC) [Mass/Vol] 32.7 % 32.0 - 36.0 % [facility] MCV (RBC) [Entitic vol] 92.2 fL 80.0 - 98.0 fL [facility] Monocytes (Bld) [#/Vol] 0.8 10*3/uL 0.0 - 0.8 10*3/uL [facility] Monocytes/100 WBC (Bld) 6.8 % 2.0 - 10.0 % [facility] Neutrophils (Bld) [#/Vol] 7.4 10*3/uL High 1.8 - 7.0 10*3/uL [facility] Neutrophils/100 WBC (Bld) 60.7 % 40.0 - 80.0 % [facility] Nucleated RBC/100 WBC (Bld) [Ratio] 0.0 % [facility] Platelet mean volume (Bld) [Entitic vol] 7.9 fL 7.4 - 12.4 fL [facility] Platelets (Bld) [#/Vol] 354 10*3/uL 140 - 440 10*3/uL [facility] RBC (Bld) [#/Vol] 3.97 10*6/uL 3.8 - 5.20 10*6/uL [facility] WBC (Bld) [#/Vol] 12.1 10*3/uL High 3.6 - 10.7 10*3/uL [facility] Laboratory - Chemistry and C hemistry - challengeon 10-05-2022 Glucose [Mass/Vol] 220 mg/dL High 70 - 100 mg/dL [facility] Glucose [Mass/Vol] 133 mg/dL High 70 - 100 mg/dL [facility] Glucose [Mass/Vol] 146 mg/dL High 70 - 100 mg/dL [facility] Glucose [Mass/Vol] 111 mg/dL High 70 - 100 mg/dL [facility] No Panel Informationon 10-05 Interpretation and review of laboratory results Abnormal [facility] Interpretation and review of laboratory results Abnormal [facility] Interpretation and review of laboratory results Abnormal [facility] Interpretation and review of laboratory results Abnormal [facility] Progress Noteon 10-05-2022 Progress Note Normal [facility] Progress Note Normal [facility] Progress Note Normal [facility] Progress Note Normal [facility] XR HIP 2 OR 3 VW LEFTon 09-13 XR HIP 2 OR 3 VW LEFT Normal [facility] XR Hip - left 3 Viewson [...] possible interval callus formation, and extreme varus. [facility] XR KNEE 1-2 VIEWS LEFTon XR KNEE 1-2 VIEWS LEFT Normal [facility] XR Knee - left 1 or 2 Viewso n 10-05-2022 [facility] RADIOLOG[facility] Radiology Study observation (narrative) [facility] XR Knee - left 1 or 2 ViewsO rdered By: Natanael Austin on 10-05-2022 [facility] Work Phone: CARECOORDon 10-04-2022 CARECOORD Normal [facility] CBC W Auto Differential pane l (Bld)Ordered By: Marcos Celis on 10-04-2022 Basophils (Bld) [#/Vol] 0.1 10*3/uL 0.0 - 0.2 10*3/uL [facility] Basophils/100 WBC (Bld) 0.6 % 0.0 - 2.0 % [facility] Eosinophils (Bld) [#/Vol] 0.2 10*3/uL 0.0 - 0.5 10*3/uL [facility] Eosinophils/100 WBC (Bld) 1.6 % 1.0 - 6.0 % [facility] Erythrocyte distribution width (RBC) [Ratio] 14.6 % High 11.5 - 14.5 % [facility] Hematocrit (Bld) [Volume fraction] 37.2 % 35.0 - 47.0 % [facility] Hemoglobin (Bld) [Mass/Vol] 12.2 g/dL 11.7 - 16.0 g/dL [facility] Interpretation and review of laboratory results Abnormal [facility] Lymphocytes (Bld) [#/Vol] 3.9 10*3/uL 1.0 - 4.3 10*3/uL [facility] Lymphocytes/100 WBC (Bld) 32.4 % 20.0 - 40.0 % [facility] MCH (RBC) [Entitic mass] 29.9 pg 26.0 - 34.0 pg [facility] MCHC (RBC) [Mass/Vol] 32.9 % 32.0 - 36.0 % [facility] MCV (RBC) [Entitic vol] 90.7 fL 80.0 - 98.0 fL [facility] Monocytes (Bld) [#/Vol] 0.7 10*3/uL 0.0 - 0.8 10*3/uL [facility] Monocytes/100 WBC (Bld) 6.0 % 2.0 - 10.0 % [facility] Neutrophils (Bld) [#/Vol] 7.1 10*3/uL High 1.8 - 7.0 10*3/uL [facility] Neutrophils/100 WBC (Bld) 59.4 % 40.0 - 80.0 % [facility] Nucleated RBC/100 WBC (Bld) [Ratio] 0.1 % [facility] Platelet mean volume (Bld) [Entitic vol] 8.2 fL 7.4 - 12.4 fL [facility] Platelets (Bld) [#/Vol] 392 10*3/uL 140 - 440 10*3/uL [facility] RBC (Bld) [#/Vol] 4.10 10*6/uL 3.8 - 5.20 10*6/uL [facility] WBC (Bld) [#/Vol] 12.0 10*3/uL High 3.6 - 10.7 10*3/uL [facility] Comprehensive metabolic 1998 panelon 10-04-2022 Albumin [Mass/Vol] 3.8 g/dL 3.5 - 5.0 g/dL [facility] ALP [Catalytic activity/Vol] 134 U/L High 38 - 126 U/L [facility] ALT [Catalytic activity/Vol] 48 U/L High 0 - 34 U/L [facility] Anion gap [Moles/Vol] 12 mmol/L 3 - 13 mmol/L [facility] AST [Catalytic activity/Vol] 59 U/L High 15 - 46 U/L [facility] Bilirubin [Mass/Vol] 0.4 mg/dL 0.2 - 1 .3 mg/dL [facility] Calcium [Mass/Vol] 9.2 mg/dL 8.4 - 10. 4 mg/dL [facility] Chloride [Moles/Vol] 104 mmol/L 98 - 10 7 mmol/L [facility] CO2 [Moles/Vol] 21 mmol/L Low 22 - 30 mmol/L [facility] Creatinine [Mass/Vol] 0.69 mg/dL 0.52 - 1.04 mg/dL [facility] GFR/1.73 sq M.predicted MDRD (S/P/Bld) [Vol rate/Area] - PINF [facility] Glucose [Mass/Vol] 88 mg/dL 70 - 100 mg/dL [facility] Interpretation and review of laboratory results Abnormal [facility] Potassium [Moles/Vol] 4.0 mmol/L 3.5 - 5.1 mmol/L [facility] Protein [Mass/Vol] 7.3 g/dL 6.3 - 8.2 g/dL [facility] Sodium [Moles/Vol] 137 mmol/L 135 - 145 mmol/L [facility] Urea nitrogen [Mass/Vol] 28 mg/dL High 7 - 17 mg/dL [facility] Consulton 10-04-2022 Consult Normal [facility] Consult Normal [facility] ECG 12-LEADon 10-04-2022 ECG 12-LEAD IMPRESSION: Sinus rhythm Compared to ECG 09/16/2016 20:55:58 No significant changes Electronically Signed On 10-04-2022 5:29:00 EDT by Sharita Rutledge Normal [facility] HbA1c (Bld) [Mass fraction]o n 10-04-2022 Average glucose Estimated from glycated hemoglobin (Bld) [Mass/Vol] 105 mg/dL [facility] Laboratory - Chemistry and C hemistry - challengeon 10-04-2022 Glucose [Mass/Vol] 151 mg/dL High 70 - 100 mg/dL [facility] Glucose [Mass/Vol] 109 mg/dL High 70 - 100 mg/dL [facility] Glucose [Mass/Vol] 86 mg/dL 70 - 100 mg/dL [facility] [employer] Laboratory - Hematology and Cell countson 10-04-2022 HbA1c (Bld) [Mass fraction] 5.3 % NINF - 5.7 % [facility] [employer] No Panel Informationon 10-04 Interpretation and review of laboratory results Abnormal [facility] [employer] [facility] [employer] Interpretation and review of laboratory results Abnormal [facility] [employer] [facility] [employer] Interpretation and review of laboratory results Normal [facility] [employer] [facility] [employer] [facility] [employer] CV EPIPHANY [facility] [employer] No Panel InformationOrdered By: Sharita Rutledge on 10-04-2022 P [place] 66 degrees [employer] Phone: IA Interval 184 ms [employer] Phone: [phone] QRS [place] -10 degrees [employer] Phone: QRSD Interval 99 ms [employer] Phone: QT Interval 383 ms [employer] Work Phone: QTC Interval 467 ms [employer] Work Phone: [phone] T Wave [place] 52 degrees [employer] Phone: [employer] Phone: Nursing Noteon 10-04-2022 Nursing Note Report called to Bree demarco RN at [facility]. Patient to be transferred via [facility] ambulance at 7pm room 127 on H6. Normal [facility] Progress Noteon 10-04-2022 Progress Note Normal [facility] Progress Note Normal [facility] Progress Note Normal [facility] Progress Note Normal [facility] Progress Note Normal [facility] Vital signsOrdered By: Sonny Rutledge on 10-04-2022 Heart rate 89 /min bpm [employer] Phone: XR Chest Single viewon 10-04 [facility] RADIOLOG[facility] SYSTEM [facility] Radiology Study observation (narrative) [facility] [employer] XR Chest Single viewOrdered By: Je Mark on 10-04-2022 [employer] Phone: 25-hydroxyvitamin D3 [Mass/V ol]on 10-03-2022 Interpretation and review of laboratory results Normal [facility] ABO and Rh group Confirm Nom (Bld)on 10-03-2022 ABO group Nom (Bld) O [facility] D Ag Ql (RBC) Positive [facility] Basic metabolic 1998 panelon 10-03-2022 Anion gap [Moles/Vol] 8 mmol/L 3 - 13 mmol/L [facility] Calcium [Mass/Vol] 9.6 mg/dL 8.4 - 10. 4 mg/dL [facility] Chloride [Moles/Vol] 104 mmol/L 98 - 10 7 mmol/L [facility] CO2 [Moles/Vol] 26 mmol/L 22 - 30 mmol/L [facility] Creatinine [Mass/Vol] 0.84 mg/dL 0.52 - 1.04 mg/dL [facility] GFR/1.73 sq M.predicted MDRD (S/P/Bld) [Vol rate/Area] 75.8 mL/min/{1.73_m2} - PINF [facility] Glucose [Mass/Vol] 143 mg/dL High 70 - 100 mg/dL [facility] Potassium [Moles/Vol] 6.0 mmol/L High 3.5 - 5.1 mmol/L [facility] Sodium [Moles/Vol] 138 mmol/L 135 - 145 mmol/L [facility] Urea nitrogen [Mass/Vol] 36 mg/dL High 7 - 17 mg/dL [facility] Blood type and Crossmatch didier cristofer (Bld)on 10-03-2022 ABO group Nom (Bld) O [facility] Blood group antibody screen GEL Ql Negative [facility] D Ag Ql (RBC) Positive [facility] CBC W Auto Differential pane l (Bld)Ordered By: Christina Whitt on 10-03-2022 Basophils (Bld) [#/Vol] 0.1 10*3/uL 0.0 - 0.2 10*3/uL [facility] Basophils/100 WBC (Bld) 0.5 % 0.0 - 2.0 % [facility] Eosinophils (Bld) [#/Vol] 0.2 10*3/uL 0.0 - 0.5 10*3/uL [facility] Eosinophils/100 WBC (Bld) 1.4 % 1.0 - 6.0 % [facility] Erythrocyte distribution width (RBC) [Ratio] 14.7 % High 11.5 - 14.5 % [facility] Hematocrit (Bld) [Volume fraction] 35.7 % 35.0 - 47.0 % [facility] Hemoglobin (Bld) [Mass/Vol] 11.9 g/dL 11.7 - 16.0 g/dL [facility] Interpretation and review of laboratory results Abnormal [facility] Lymphocytes (Bld) [#/Vol] 2.1 10*3/uL 1.0 - 4.3 10*3/uL [facility] Lymphocytes/100 WBC (Bld) 18.8 % Low 20.0 - 40.0 % [facility] MCH (RBC) [Entitic mass] 30.2 pg 26.0 - 34.0 pg [facility] MCHC (RBC) [Mass/Vol] 33.2 % 32.0 - 36.0 % [facility] MCV (RBC) [Entitic vol] 90.7 fL 80.0 - 98.0 fL [facility] Monocytes (Bld) [#/Vol] 0.7 10*3/uL 0.0 - 0.8 10*3/uL [facility] Monocytes/100 WBC (Bld) 6.0 % 2.0 - 10.0 % [facility] Neutrophils (Bld) [#/Vol] 8.1 10*3/uL High 1.8 - 7.0 10*3/uL [facility] Neutrophils/100 WBC (Bld) 73.3 % 40.0 - 80.0 % [facility] Nucleated RBC/100 WBC (Bld) [Ratio] 0.0 % [facility] Platelet mean volume (Bld) [Entitic vol] 8.0 fL 7.4 - 12.4 fL [facility] Platelets (Bld) [#/Vol] 350 10*3/uL 140 - 440 10*3/uL [facility] RBC (Bld) [#/Vol] 3.94 10*6/uL 3.8 - 5.20 10*6/uL [facility] WBC (Bld) [#/Vol] 11.0 10*3/uL High 3.6 - 10.7 10*3/uL [facility] CT HIP LEFT WO IV CONTRASTon 10-03-2022 CT HIP LEFT WO IV CONTRAST Normal [facility] CT Hip - left WO contraston 10-03-2022 [facility] Radiology Study observation (narrative) [facility] CT Hip - left WO contrastOrd ered By: Dereck Gramajo on 10-03-2022 [facility] Work Phone: CT PELVIS ANGIO W AND WO IV CONTRASTon 10-03-2022 CT PELVIS ANGIO W AND WO IV CONTRAST Normal [facility] CTA Pelvis vessels WO and W contrast Aristides 10-03-[address] [facility] Radiology Study observation (narrative) [facility] Consulton 10-03-2022 Consult Normal [facility] ED Provider Noteon ED Provider Note Normal [facility] ESR (Bld) [Velocity]on 10-03 Interpretation and review of laboratory results Abnormal [facility] Laboratory - Chemistry and C hemistry - challengeOrdered By: Adria Quiroga on 10-03-2022 Potassium [Moles/Vol] 4.7 mmol/L 3.5 - 5.1 mmol/L [facility] Laboratory - Chemistry and C hemistry - challengeon 10-03-2022 Glucose [Mass/Vol] 98 mg/dL 70 - 100 mg/dL [facility] 25-hydroxyvitamin D3 [Mass/Vol] 68 ng/mL 30 - 100 ng/mL [facility] CRP [Mass/Vol] 14.9 mg/L High NINF - 10.0 mg/L [facility] Laboratory - Coagulationon 0 10-03-2022 PT Coag (Bld) [Time] 11.0 s 9.0 - 1 2.0 s [facility] Laboratory - Hematology and Cell countson 10-03-2022 ESR (Bld) [Velocity] 46 mm/h High [facility] No Panel Informationon 10-03 Interpretation and review of laboratory results Normal [facility] Interpretation and review of laboratory results Abnormal [facility] Interpretation and review of laboratory results Normal [facility] PT Coag (Bld) [Time]on 10-03 INR Coag (PPP) [Relative time] 1.0 {INR} 0.9 - 1.1 [facility] Potassium [Moles/Vol]Ordered By: Adria Quiroga on 10-03-2022 Interpretation and review of laboratory results Normal [facility] Progress Noteon 10-03-2022 Progress Note Normal [facility] System SHS XR Hip - left 3 Viewson 09-13 Radiology Study observation (narrative) [facility] aPTT Coag (Bld) [Time]on aPTT Coag (PPP) [Time] 26.8 s 20.0 - 30.5 s [facility] Absolute lymphocyte countOrd ered By: Christopher Jackson on 09-18-2022 Lymphocytes Auto (Unsp spec) [#/Vol] 3.20 10*3/uL 0.83-4.51 [facility] Basophil percentageOrdered B y: Christopher Jackson on 09-18-2022 Basophils/100 WBC (Bld) 0.2 % 0-1 [facility] Eosinophils/100 WBC (Bld) 2.1 % 0-5 [facility] Neutrophils (Bld) [#/Vol] 5.2 10*3/uL 2.0-7.7 [facility] Neutrophils/100 WBC (Bld) 56.0 % 47-70 [facility] WBC (Bld) [#/Vol] 9.2 10*3/uL 4.4-11.0 [facility] Blood erythrocytes count (nu mber/volume)Ordered By: Christopher Jackson on 09-18-2022 RBC (Bld) [#/Vol] 3.85 10*6/uL 4.2-5.4 [facility] Blood hemoglobin measurement (mass/volume)Ordered By: Christopher Jackson on 09-18-2022 Hemoglobin (Bld) [Mass/Vol] 11.7 g/dL 12.0-15.0 [facility] Blood lymphocytes/100 leukoc ytesOrdered By: Christopher Jackson on 09-18-2022 Lymphocytes/100 WBC (Bld) 34.7 % 19-41 [facility] Blood monocytes/100 leukocyt esOrdered By: Christopher Jackson on 09-18-2022 Monocytes/100 WBC (Bld) 6.8 % 0-10 [facility] Blood platelet mean volumeOr dered By: Christopher Jackson on 09-18-2022 Platelet mean volume (Bld) [Entitic vol] 9.4 fL 6.2-12.0 [facility] Determination of erythrocyte mean corpuscular volume (MCV)Ordered By: Christopher Jackson on 09-18-2022 MCV (RBC) [Entitic vol] 94.5 fL 81-99 [facility] Hematocrit Auto (Bld) [Volum e fraction]Ordered By: Christopher Jackson on 09-18-2022 Hematocrit (Bld) [Volume fraction] 36.4 % 37-47 [facility] INR in Blood by Coagulation assayOrdered By: Christopher Jackson on 09-18-2022 INR Coag (Bld) [Relative time] 1.1 {INR} [facility] Laboratory - CoagulationOrde red By: Christopher Jackson on 09-18-2022 aPTT Coag (Bld) [Time] 30.7 s 24.1-36.2 [facility] PT Coag (PPP) [Time] 14.0 s 11.7-14.9 [facility] Laboratory - Hematology and Cell countsOrdered By: Christopher Jackson on 09-18-2022 Erythrocyte distribution width (RBC) [Entitic vol] 50.8 fL 35.1-43.9 [facility] Erythrocyte distribution width (RBC) [Ratio] 14.6 % 11.6-14.6 [facility] Immature granulocytes/100 WBC (Bld) 0.200 % 0.0-0.9 [facility] Comment on above: IG% - Immature Granu locytes (promyelocytes, myelocytes and metamyelocytes) > 1% indicates that a LEFT SHIFT is Present. MCH (RBC) [Entitic mass] 30.4 pg 27.0-32.0 [facility] Nucleated RBC/100 WBC (Bld) [Ratio] 0 % 0-5 [facility] MCHC Auto (RBC) [Mass/Vol]Or dered By: Christopher Jackson on 09-18-2022 MCHC (RBC) [Mass/Vol] 32.1 g/dL 32-36 [facility] No Panel InformationOrdered By: Regina Oden on 09-18-2022 Miscellaneous Test SEE PATH REPORT [facility] Platelets bldOrdered By: Andrew carson Manuel on 09-18-2022 Platelets (Bld) [#/Vol] 391 10*3/uL 150-450 [facility] Absolute lymphocyte countOrd ered By: Tamiko Quigley on 08-16-2022 Lymphocytes Auto (Unsp spec) [#/Vol] 2.20 10*3/uL 0.83-4.51 [facility] Albumin Elph [Mass/Vol]Order ed By: Tamiko Quigley on 08-16-2022 Albumin [Mass/Vol] 2.6 g/dL 2.9-4.4 [facility] Basophil percentageOrdered B y: Tamiko Quigley on 08-16-2022 Basophils/100 WBC (Bld) 0.1 % 0-1 [facility] Chloride [Moles/Vol] 98 mmol/L 98-107 [facility] Eosinophils/100 WBC (Bld) 1.8 % 0-5 [facility] Glucose [Mass/Vol] 165 mg/dL 74-106 [facility] Comment on above: Fasting Glucose resu lt greater than or equal to 126 mg/dL suggests DIABETES MELLITUS per A.D.A. criteria. Neutrophils (Bld) [#/Vol] 8.0 10*3/uL 2.0-7.7 [facility] Neutrophils/100 WBC (Bld) 69.7 % 47-70 [facility] Potassium [Moles/Vol] 3.3 mmol/L 3.5-5.1 [facility] Sodium [Moles/Vol] 138 mmol/L 136-145 [facility] WBC (Bld) [#/Vol] 11.4 10*3/uL 4.4-11.0 [facility] Blood erythrocytes count (nu mber/volume)Ordered By: Tamiko Quigley on 08-16-2022 RBC (Bld) [#/Vol] 2.76 10*6/uL 4.2-5.4 [facility] Blood hemoglobin measurement (mass/volume)Ordered By: Tamiko Quigley on 08-16-2022 Hemoglobin (Bld) [Mass/Vol] 8.4 g/dL 12.0-15.0 [facility] Blood lymphocytes/100 leukoc ytesOrdered By: Tamiko Quigley on 08-16-2022 Lymphocytes/100 WBC (Bld) 19.3 % 19-41 [facility] Blood monocytes/100 leukocyt esOrdered By: Tamiko Quigley on 08-16-2022 Monocytes/100 WBC (Bld) 7.9 % 0-10 [facility] Blood platelet mean volumeOr dered By: Tamiko Quigley on 08-16-2022 Platelet mean volume (Bld) [Entitic vol] 9.5 fL 6.2-12.0 [facility] Determination of erythrocyte mean corpuscular volume (MCV)Ordered By: Tamiko Quigley on 08-16-2022 MCV (RBC) [Entitic vol] 94.2 fL 81-99 [facility] Glucose Glucometer (BldC) [M ass/Vol]Ordered By: Tamiko Quigley on 08-16-2022 Glucose [Mass/Vol] 144 mg/dL 74-106 [facility] Comment on above: MANAGEMENT OF PATIEN T CARE PER NURSING PROTOCOL Glucose [Mass/Vol] 187 mg/dL 74-106 [facility] Comment on above: MANAGEMENT OF PATIEN T CARE PER NURSING PROTOCOL Hematocrit Auto (Bld) [Volum e fraction]Ordered By: Tamiko Quigley on 08-16-2022 Hematocrit (Bld) [Volume fraction] 26.0 % 37-47 [facility] Interpretation of serum or p lasma protein pattern by immunofixation (narrative resultOrdered By: Tamiko Quigley on 08-16-2022 Protein Fractions Immunofixation Minesh [Interp] See comment [facility] Comment on above: Result: Not Observed Laboratory - Chemistry and C hemistry - challengeOrdered By: Tamiko Quigley on 08-16-2022 CO2 [Moles/Vol] 35.0 mmol/L 21.0-32.0 [facility] Urea nitrogen/Creatinine [Mass ratio] 23.1 mg/mg 10-20 [facility] Laboratory - Hematology and Cell countsOrdered By: Tamiko Quigley on 08-16-2022 Erythrocyte distribution width (RBC) [Entitic vol] 55.5 fL 35.1-43.9 [facility] Erythrocyte distribution width (RBC) [Ratio] 17.2 % 11.6-14.6 [facility] Immature granulocytes/100 WBC (Bld) 1.200 % 0.0-0.9 [facility] Comment on above: IG% - Immature Granu locytes (promyelocytes, myelocytes and metamyelocytes) > 1% indicates that a LEFT SHIFT is Present. MCH (RBC) [Entitic mass] 30.4 pg 27.0-32.0 [facility] Nucleated RBC/100 WBC (Bld) [Ratio] 0 % 0-5 [facility] MCHC Auto (RBC) [Mass/Vol]Or dered By: Tamiko Quigley on 08-16-2022 MCHC (RBC) [Mass/Vol] 32.3 g/dL 32-36 [facility] No Panel InformationOrdered By: Tamiko Quigley on 08-16-2022 Addendum Document Comment . [facility] Comment on above: Protein electrophore sis scan will follow via computer,mail, or accuracy expert delivery.Performed at: [employer] [id number] Director: Avni Valles PhD, Phone: [phone] Estimated Creatinine Clearance Calc 53.44 ml/min [facility] Estimated GFR (MDRD) Amer 83 mL/min >60 [facility] Comment on above: GFR Calc Estimated GFR (MDRD) Non-Af Amer 69 mL/min >60 [facility] Comment on above: Non- GFR Calc Platelets bldOrdered By: Paola Quigley on 08-16-2022 Platelets (Bld) [#/Vol] 312 10*3/uL 150-450 [facility] Serum [id number] measu rement by electrophoresisOrdered By: Tamiko Quigley on 08-16-2022 Alpha 1 globulin Elph [Mass/Vol] 0.4 g/dL 0.0-0.4 [facility] Alpha 1 globulin Elph [Mass/Vol] 0.7 g/dL 0.4-1.0 [facility] Serum globulin measurement ( mass/volume)Ordered By: Tamiko Quigley on 08-16-2022 Globulin (S) [Mass/Vol] 2.6 g/dL 2.2-3.9 [facility] Serum or plasma IgA measurem ent (mass/volume)Ordered By: Tamiko Quigley on 08-16-2022 IgA [Mass/Vol] 303 mg/dL 87-352 [facility] Serum or plasma IgG measurem ent (mass/volume)Ordered By: Tamiko Quigley on 08-16-2022 IgG [Mass/Vol] 770 mg/dL 586-1602 [facility] Serum or plasma IgM measurem ent (mass/volume)Ordered By: Tamiko Quigley on 08-16-2022 IgM [Mass/Vol] 75 mg/dL 26-217 [facility] Serum or plasma beta globuli n measurement by electrophoresis (mass/volume)Ordered By: Tamiko Quigley on 08-16-2022 Beta globulin Elph [Mass/Vol] 0.8 g/dL 0.7-1.3 [facility] Serum or plasma calcium timbo urement (mass/volume)Ordered By: Tamiko Quigley on 08-16-2022 Calcium [Mass/Vol] 8.2 mg/dL 8.5-10.1 [facility] Serum or plasma creatinine m easurement (mass/volume)Ordered By: Tamiko Quigley on 08-16-2022 Creatinine [Mass/Vol] 0.87 mg/dL 0.55-1.02 [facility] Comment on above: The validity of the calculated GFR & GFRAA in patients over 70 years has not been determined. Clinical correlation is essential. Serum or plasma gamma globul in measurement by electrophoresis (mass/volume)Ordered By: Tamiko Quigley on 08-16-2022 Gamma globulin Elph [Mass/Vol] 0.8 g/dL 0.4-1.8 [facility] Serum or plasma immunoelectr ophoresis interpretation (nominal result)Ordered By: Tamiko Quigley on 08-16-2022 Interpretation IEP [Interp] Comment . [facility] Comment on above: No monoclonality det ected. Serum or plasma urea nitroge n measurement (mass/volume)Ordered By: Tamiko Quigley on 08-16-2022 Urea nitrogen [Mass/Vol] 20 mg/dL 7-18 [facility] Thin prep Papanicolaou smear with manual screeningOrdered By: Tamiko Quigley on 08-16-2022 Thin prep Papanicolaou smear with manual screening 5 5-15 [facility] Thin prep Papanicolaou smear with manual screening 1.1 0.7-1.7 [facility] Total protein bloodOrdered B y: Tamiko Quigley on 08-16-2022 Protein [Mass/Vol] 5.2 g/dL 6.0-8.5 [facility] Basophil percentageOrdered B y: Tamiko Quigley on 08-15-2022 Basophil percentage 2.5 mg/dL 2.5-4.9 [facility] Bilirubin [Mass/Vol] 1.60 mg/dL 0.20-1.00 [facility] Comment on above: For patients on eltr ombopag therapy, use of Dimension [place] TBIL is not recommended. Protein [Mass/Vol] 5.6 g/dL 6.4-8.2 [facility] Laboratory - Chemistry and C hemistry - challengeOrdered By: Tamiko Quigley on 08-15-2022 ALP [Catalytic activity/Vol] 75 U/L 45-117 [facility] ALT [Catalytic activity/Vol] 16 U/L 13-56 [facility] Globulin (S) [Mass/Vol] 3.2 g/dL 2.2-4.2 [facility] Magnesium [Mass/Vol] 1.2 mg/dL 1.6-2.6 [facility] Serum or plasma albumin timbo urement (mass/volume)Ordered By: Tamiko Quigley on 08-15-2022 Albumin [Mass/Vol] 2.4 g/dL 3.2-5.0 [facility] Serum or plasma albumin/glob ulin mass ratioOrdered By: Tamiko Quigley on 08-15-2022 Albumin/Globulin [Mass ratio] 0.8 {ratio} 0.9-2.4 [facility] Thin prep Papanicolaou smear with manual screeningOrdered By: Tamiko Quigley on 08-15-2022 Thin prep Papanicolaou smear with manual screening 18 U/L 15-37 [facility] AFB stainOrdered By: John Velez on 08-14-2022 Microscopic observation Acid fast stain Nom (Unsp spec) SEE PATHOLOGY REPORT [facility] Comment on above: Specimen submitted t o Anatomical Pathology Department for testing. Bacteria identified Anaer cx Nom (Unsp spec)Ordered By: John Short on 08-14-2022 Anaerobic Culture Prevotella bivia [facility] Bacterial body fluid culture Ordered By: John Short on 08-14-2022 Bacteria identified Cx Nom (Body fld) Culture exhibits no growth. [facility] Body fluid appearanceOrdered By: John Short on 08-14-2022 Appearance (Body fld) TURBID [facility] Body fluid color determinati onOrdered By: John Short on 08-14-2022 Color (Body fld) RED [facility] Body fluid erythrocytes coun t (number/volume)Ordered By: John Short on 08-14-2022 RBC (Body fld) [#/Vol] 2002 10*3/uL [facility] Body fluid leukocytes count (number/volume)Ordered By: John Short on 08-14-2022 WBC (Body fld) [#/Vol] 4.925 10*3/uL [facility] Body fluid lymphocytes/100 l eukocytesOrdered By: John Short on 08-14-2022 Lymphocytes/100 WBC (Body fld) 10 % [facility] Body fluid macrophage countO rdered By: John Short on 08-14-2022 Macrophages (Body fld) [#/Vol] 9 % [facility] Body fluid segmented neutrop hils count (number/volume)Ordered By: John Short on 08-14-2022 Segmented neutrophils (Body fld) [#/Vol] 57 % [facility] Cytology report of Body flui d Cyto stainOrdered By: John Short on 08-14-2022 Cytology report Cyto stain Doc (Body fld) SEE PATHOLOGY REPORT [facility] Comment on above: Specimen submitted t o Anatomical Pathology Department for testing. Direct bilirubinOrdered By: John Short on 08-14-2022 Bilirubin.direct [Mass/Vol] 0.36 mg/dL 0.00-0.30 [facility] Gram stain for investigation of transfusion reactionOrdered By: John Short on 08-14-2022 Microscopic observation Gram stain Nom (Unsp spec) [facility] Mononuclear cells Auto (Body fld) [#/Vol]Ordered By: John Short on 08-14-2022 Mononuclear cells (Body fld) [#/Vol] 0.989 10*3/uL [facility] No Panel InformationOrdered By: John Short on 08-14-2022 Body Fluid Comment 2 SEE COMMENT [facility] Body Fluid Mononuclear WBCs (%) 20.1 % [facility] Body Fluid Pathologist Comment May follow [facility] Body Fluid Pathologist Comment Reviewed [facility] Comment on above: Previous reported re sult: May follow Edited by: RGOYOMAIRA on 08/18/22:0946Negative for malignant cells.Wilner Dowd M.D. 08/18/22 AMENDED REPORT 08/18/22 0946 PATH COMM/BF previously reported as: May follow Body Fluid Polynuclear WBCs (#) 3.936 10^3/uL [facility] Body Fluid Polynuclear WBCs (%) 79.9 % [facility] No Panel InformationOrdered By: Tamiko Quigley on 08-14-2022 CA 125 Antigen 15.4 U/mL 0.0-38.1 [facility] Comment on above: [employer] El ectrochemiluminescence Immunoassay(ECLIA)Values obtained with different assay methods or kits cannotbe used interchangeably. Results cannot be interpreted asabsolute evidence of the presence or absence of malignantdisease.Performed at: [address] [id number] Director: Avni Valles PhD, Phone: [phone] CA 19-9 Antigen < 2 U/mL 0-35 [facility] Comment on above: [employer] El ectrochemiluminescence Immunoassay(ECLIA)Values obtained with different assay methods or kits cannotbe used interchangeably. Results cannot be interpreted asabsolute evidence of the presence or absence of malignantdisease. Serum or plasma carcinoembry onic antigen measurement (mass/volume)Ordered By: Tamiko Quigley on 08-14-2022 Carcinoembryonic Ag [Mass/Vol] 3.0 ng/mL 0.0-4.7 [facility] Comment on above: Nonsmokers <3.9 Smok ers <5.6[employer] Electrochemiluminescence Immunoassay(ECLIA)Values obtained with different assay methods or kitscannot be used interchangeably. Results cannot beinterpreted as absolute evidence of the presence orabsence of malignant disease. Specimen source identificati on of body fluidOrdered By: John Short on 08-14-2022 Specimen source Nom (Body fld) THORACENTESIS [facility] Thin prep Papanicolaou smear with manual screeningOrdered By: John Short on 08-14-2022 Thin prep Papanicolaou smear with manual screening 24 % [facility] Total cell countOrdered By: John Short on 08-14-2022 Cells counted [employer] (Bld/Tiss) [#] 5.366 10^3/ul 0.000-0.000 [facility] Comment on above: This is the Total Nu mber of Nucleated Cell Types in the Body Fluid. Amorphous sediment detection in urine sediment by light microscopyOrdered By: John Short on 08-13-2022 Amorphous sediment LM Ql (Urine sed) 1+ URATE [facility] Basophil percentageOrdered B y: John Short on 08-13-2022 LDH [Catalytic activity/Vol] 280 U/L 84-246 [facility] Basophil percentage 0-5 SEEN /hpf 0-5 [facility] Bilirubin Test strip Ql (U)O rdered By: John Short on 08-13-2022 Bilirubin Ql (U) Negative Negative [facility] Body fluid lactate dehydroge nase measurement (enzymatic activity/volume) by pyruvateOrdered By: John Short on 08-13-2022 LDH Pyruvate to lactate reaction (Body fld) [Catalytic activity/Vol] 475 Units/l Not Establ. [facility] Body fluid protein measureme nt (mass/volume)Ordered By: John Short on 08-13-2022 Protein (Body fld) [Mass/Vol] 2.6 g/dL Not Establ. [facility] INR in Blood by Coagulation assayOrdered By: John Short on 08-13-2022 INR Coag (Bld) [Relative time] 1.1 {INR} [facility] Ketones Test strip Ql (U)Ord ered By: John Short on 08-13-2022 Ketones Ql (U) Negative Negative [facility] Laboratory - CoagulationOrde red By: John Short on 08-13-2022 aPTT Coag (Bld) [Time] 31.5 s 24.1-36.2 [facility] PT Coag (PPP) [Time] 14.1 s 11.7-14.9 [facility] Mucus LM Ql (Urine sed)Order ed By: John Short on 08-13-2022 Mucus Ql (Urine sed) 0 SEEN /hpf [facility] Nitrite Test strip Ql (U)Ord ered By: John Short on 08-13-2022 Nitrite Ql (U) Negative Negative [facility] No Panel InformationOrdered By: John Short on 08-13-2022 Body Fluid Glucose 149 mg/dL 40-70 [facility] No Panel InformationOrdered By: Kanwal Aguilar on 08-13-2022 Troponin I High Sensitivity 14 pg/mL 3.0-54.0 [facility] Comment on above: Please Note: New Daiana t Units and Gender Specific Reference Ranges. For more information see Policy Stat Procedure [place] High Sensitivity Troponin (TNIH) and attachments. Protein Test strip Ql (U)Ord ered By: John Short on 08-13-2022 Protein Ql (U) 15 mg/dl Negative [facility] Squamous epithelial cells de tection in urine sediment by light microscopyOrdered By: John Short on 08-13-2022 Epithelial cells.squamous LM Ql (Urine sed) 0-5 SEEN /hpf 5-10 [facility] Urine blood detectionOrdered By: John Short on 08-13-2022 RBC Ql (U) Negative Negative [facility] RBC Ql (U) 0 SEEN /hpf 0-5 [facility] Urine clarityOrdered By: Celena Short on 08-13-2022 Clarity (U) Clear Clear [facility] Urine color determinationOrd ered By: John Short on 08-13-2022 Color (U) Yellow Yellow [facility] Urine glucose detectionOrder ed By: John Short on 08-13-2022 Glucose Ql (U) 50 mg/dl Normal [facility] Urine leukocyte esterase det ection by dipstickOrdered By: John Short on 08-13-2022 Leukocyte esterase Test strip Ql (U) 25 /ul Negative [facility] Urine pHOrdered By: John Howard on 08-13-2022 pH (U) 6.0 [pH] 5.0 - 8.0 [facility] Urine sediment bacteria coun t by microscopy (number/high power field)Ordered By: oJhn Short on 08-13-2022 Bacteria LM.HPF (Urine sed) [#/Area] RARE /hpf None Seen [facility] Urine sediment renal epithel ial cell count by microscopy (number/high power field)Ordered By: John Short on 08-13-2022 Epithelial cells.renal LM.HPF (Urine sed) [#/Area] 0 /[HPF] 0-5 [facility] Urine specific gravity measu rementOrdered By: John Short on 08-13-2022 Specific gravity (U) [Rel density] 1.015 1.002-1.030 [facility] Urobilinogen Auto test strip Ql (U)Ordered By: John Short on 08-13-2022 Urobilinogen Ql (U) Normal mg/dl Normal [facility] Basophil percentageOrdered B y: Home Valverde on 08-08-2022 Cholesterol [Mass/Vol] 122 mg/dL <200 [facility] Comment on above: <200 mg/dL Desirable 200-240 mg/dL Borderline >240 mg/dL High Risk Triglyceride [Mass/Vol] 151 mg/dL <199 [facility] Comment on above: The drugs N-Acetylcy steine and Metamizole may falsely depress this assay.Serum Triglycerides Reference Interval Normal <150 mg/dL Borderline high 150 - 199 mg/dL High 200 - 499 mg/dL Very High > or = 500 mg/dL Serum or plasma cholesterol in HDL measurement (mass/volume)Ordered By: Home Valverde on 08-08-2022 Cholesterol in HDL [Mass/Vol] 35 mg/dL >40 [facility] Comment on above: The drugs N-Acetylcy steine and Metamizole may falsely depress this assay. Reference Range HDL <40 mg/dL Low HDL Cholesterol HDL >or= 60 mg/dL High HDL Cholesterol Serum or plasma cholesterol in VLDL measurement (mass/volume)Ordered By: Home Valverde on 08-08-2022 Cholesterol in VLDL [Mass/Vol] 30 mg/dL 5-40 [facility] Serum or plasma low density lipoprotein (LDL) cholesterol measurement (mass/volume)Ordered By: Home Valverde on 08-08-2022 Cholesterol in LDL [Mass/Vol] 57 mg/dL 0-130 [facility] Assessment of wrist artery p atency prior to arterial punctureOrdered By: John Short on 08-07-2022 Arterial patency Wrist artery --pre arterial puncture Positive [facility] Base excessOrdered By: John Short on 08-07-2022 Base excess Calc (BldV) [Moles/Vol] -2 mmol/L -2-2 [facility] Basophil percentageOrdered B y: Home Valverde on 08-07-2022 Lactate [Moles/Vol] 2.1 mmol/L 0.4-2.0 [facility] Comment on above: Critical Result(s) C alled at: 11:00:18 08/07/2022 by: Suma Barnes to [place]. Results read back by same. Ammonia (P) [Moles/Vol] 25.0 umol/L 11-32 [facility] Basophil percentageOrdered B y: John Short on 08-07-2022 Basophil percentage 20.7 mmol/L 22-26 [facility] Basophils/100 WBC (Bld) 89 % 95-99 [facility] CO2 (BldA) [Partial pressure ]Ordered By: John Short on 08-07-2022 CO2 (Bld) [Partial pressure] 23.9 mm[Hg] 35-45 [facility] Culture, urineOrdered By: Angelica Valverde on 08-07-2022 Bacteria identified Cx Nom (U) Culture exhibits no growth. [facility] Laboratory - Microbiology an d Antimicrobial susceptibilityOrdered By: Home Valverde on 08-07-2022 Bacteria identified Cx Nom (Bld) No growth in 5 days. [facility] No Panel InformationOrdered By: John Short on 08-07-2022 Blood Gas Sample Site L Radial [facility] Blood Gas Specimen Type ART [facility] Blood Gas Total CO2 21 mmol/L [facility] Oxygen (BldA) [Partial press ure]Ordered By: John Short on 08-07-2022 Oxygen (Bld) [Partial pressure] 47 mmHG 75-100 [facility] Review by pathologistOrdered By: Dereck Ramirez on 08-07-2022 Pathologist review Minesh (Unsp spec) [Interp] Reviewed [facility] Comment on above: Previous reported re sult: Shellie telma Edited by: RGOOD on 08/07/22:1303Neutrophilic leukocytosis.Normocytic anemia.Clinical correlation necessary.Wilner Dowd M.D. 08/07/22 AMENDED REPORT 08/07/22 1303 PATH REV previously reported as: June telma pH measurementOrdered By: Elliot Short on 08-07-2022 pH (Unsp spec) 7.55 [pH] 7.35-7.45 [facility] Absolute lymphocyte countOrd ered By: Monica Alvarado on 08-05-2022 Lymphocytes Auto (Unsp spec) [#/Vol] 0.97 10*3/uL 0.83-4.51 [facility] Basophil percentageOrdered B y: Monica Alvarado on 08-05-2022 Basophils/100 WBC (Bld) 0.2 % 0-1 [facility] Chloride [Moles/Vol] 110 mmol/L 98-107 [facility] Eosinophils/100 WBC (Bld) 0.2 % 0-5 [facility] Glucose [Mass/Vol] 150 mg/dL 74-106 [facility] Comment on above: Fasting Glucose resu lt greater than or equal to 126 mg/dL suggests DIABETES MELLITUS per A.D.A. criteria. Neutrophils (Bld) [#/Vol] 14.5 10*3/uL 2.0-7.7 [facility] Neutrophils/100 WBC (Bld) 89.8 % 47-70 [facility] Potassium [Moles/Vol] 4.0 mmol/L 3.5-5.1 [facility] Sodium [Moles/Vol] 139 mmol/L 136-145 [facility] WBC (Bld) [#/Vol] 16.1 10*3/uL 4.4-11.0 [facility] Basophil percentageOrdered B y: Dr. Ramirez on 08-05-2022 Bilirubin [Mass/Vol] 0.70 mg/dL 0.20-1.00 [facility] Comment on above: For patients on eltr ombopag therapy, use of Dimension [place] TBIL is not recommended. Protein [Mass/Vol] 6.9 g/dL 6.4-8.2 [facility] Blood erythrocytes count (nu mber/volume)Ordered By: Monica Alvarado on 08-05-2022 RBC (Bld) [#/Vol] 4.16 10*6/uL 4.2-5.4 [facility] Blood hemoglobin measurement (mass/volume)Ordered By: Monica Alvarado on 08-05-2022 Hemoglobin (Bld) [Mass/Vol] 12.3 g/dL 12.0-15.0 [facility] Blood lymphocytes/100 leukoc ytesOrdered By: Monica Alvarado on 08-05-2022 Lymphocytes/100 WBC (Bld) 6.0 % 19-41 [facility] Blood monocytes/100 leukocyt esOrdered By: Monica Alvarado on 08-05-2022 Monocytes/100 WBC (Bld) 3.2 % 0-10 [facility] Blood platelet mean volumeOr dered By: Monica Alvarado on 08-05-2022 Platelet mean volume (Bld) [Entitic vol] 9.9 fL 6.2-12.0 [facility] Determination of erythrocyte mean corpuscular volume (MCV)Ordered By: Monica Alvarado on 08-05-2022 MCV (RBC) [Entitic vol] 93.8 fL 81-99 [facility] Hematocrit Auto (Bld) [Volum e fraction]Ordered By: Monica Alvarado on 08-05-2022 Hematocrit (Bld) [Volume fraction] 39.0 % 37-47 [facility] INR in Blood by Coagulation assayOrdered By: Monica Alvarado on 08-05-2022 INR Coag (Bld) [Relative time] 1.1 {INR} [facility] Laboratory - Chemistry and C hemistry - challengeOrdered By: Dr. Ramirez on 08-05-2022 ALP [Catalytic activity/Vol] 77 U/L 45-117 [facility] ALT [Catalytic activity/Vol] 20 U/L 13-56 [facility] Globulin (S) [Mass/Vol] 3.3 g/dL 2.2-4.2 [facility] Laboratory - Chemistry and C hemistry - challengeOrdered By: Monica Alvarado on 08-05-2022 CO2 [Moles/Vol] 23.0 mmol/L 21.0-32.0 [facility] Urea nitrogen/Creatinine [Mass ratio] 19.4 mg/mg 10-20 [facility] Laboratory - CoagulationOrde red By: Monica Alvarado on 08-05-2022 PT Coag (PPP) [Time] 14.3 s 11.7-14.9 [facility] Laboratory - Hematology and Cell countsOrdered By: Monica Alvarado on 08-05-2022 Erythrocyte distribution width (RBC) [Entitic vol] 42.2 fL 35.1-43.9 [facility] Erythrocyte distribution width (RBC) [Ratio] 12.1 % 11.6-14.6 [facility] Immature granulocytes/100 WBC (Bld) 0.600 % 0.0-0.9 [facility] Comment on above: IG% - Immature Granu locytes (promyelocytes, myelocytes and metamyelocytes) > 1% indicates that a LEFT SHIFT is Present. MCH (RBC) [Entitic mass] 29.6 pg 27.0-32.0 [facility] Nucleated RBC/100 WBC (Bld) [Ratio] 0 % 0-5 [facility] MCHC Auto (RBC) [Mass/Vol]Or dered By: Monica Alvarado on 08-05-2022 MCHC (RBC) [Mass/Vol] 31.5 g/dL 32-36 [facility] No Panel InformationOrdered By: Dereck Ramirez on 08-05-2022 Vitamin D 25-Hydroxy 99.6 ng/mL [facility] Comment on above: Vitamin D 25(OH) Sta tus Range Deficiency <20 ng/mL (50nmol/L) Insufficiency 20 - 30 ng/mL (50 - 75 nmol/L) Sufficiency 30 - 100 ng/mL (75 - 250 nmol/L) Toxicity >100 ng/mL (>250 nmol/L) No Panel InformationOrdered By: Monica Alvarado on 08-05-2022 Estimated Creatinine Clearance Calc 45.14 ml/min [facility] Estimated GFR (MDRD) Amer 68 mL/min >60 [facility] Comment on above: GFR Calc Estimated GFR (MDRD) Non-Af Amer 57 mL/min >60 [facility] Comment on above: Non- GFR Calc Platelets bldOrdered By: Kadie Alvarado on 08-05-2022 Platelets (Bld) [#/Vol] 248 10*3/uL 150-450 [facility] Serum or plasma albumin timbo urement (mass/volume)Ordered By: Dr. Rmairez on 08-05-2022 Albumin [Mass/Vol] 3.6 g/dL 3.2-5.0 [facility] Serum or plasma albumin/glob ulin mass ratioOrdered By: Dr. Ramirez on 08-05-2022 Albumin/Globulin [Mass ratio] 1.1 {ratio} 0.9-2.4 [facility] Serum or plasma calcium timbo urement (mass/volume)Ordered By: Monica Alvarado on 08-05-2022 Calcium [Mass/Vol] 9.1 mg/dL 8.5-10.1 [facility] Serum or plasma creatinine m easurement (mass/volume)Ordered By: Monica Alvarado on 08-05-2022 Creatinine [Mass/Vol] 1.03 mg/dL 0.55-1.02 [facility] Comment on above: The validity of the calculated GFR & GFRAA in patients over 70 years has not been determined. Clinical correlation is essential. Serum or plasma urea nitroge n measurement (mass/volume)Ordered By: Monica Alvarado on 08-05-2022 Urea nitrogen [Mass/Vol] 20 mg/dL 7-18 [facility] Thin prep Papanicolaou smear with manual screeningOrdered By: Dr. Ramirez on 08-05-2022 Thin prep Papanicolaou smear with manual screening 18 U/L 15-37 [facility] Thin prep Papanicolaou smear with manual screeningOrdered By: Monica Alvarado on 08-05-2022 Thin prep Papanicolaou smear with manual screening 6 5-15 [facility] Absolute lymphocyte countOrd ered By: Rudy Boyer on 07-13-2022 Lymphocytes Auto (Unsp spec) [#/Vol] 3.03 10*3/uL 0.83-4.51 [facility] Basophil percentageOrdered B y: Rudy Boyer on 07-13-2022 Basophils/100 WBC (Bld) 0.3 % 0-1 [facility] Bilirubin [Mass/Vol] 0.40 mg/dL 0.20-1.00 [facility] Comment on above: For patients on eltr ombopag therapy, use of Dim[place] TBIL is not recommended. Chloride [Moles/Vol] 109 mmol/L 98-107 [facility] Cholesterol [Mass/Vol] 122 mg/dL <200 [facility] Comment on above: <200 mg/dL Desirable 200-240 mg/dL Borderline >240 mg/dL High Risk Eosinophils/100 WBC (Bld) 3.0 % 0-5 [facility] Glucose [Mass/Vol] 161 mg/dL 74-106 [facility] Comment on above: Fasting Glucose resu lt greater than or equal to 126 mg/dL suggests DIABETES MELLITUS per A.D.A. criteria. Neutrophils (Bld) [#/Vol] 5.2 10*3/uL 2.0-7.7 [facility] Neutrophils/100 WBC (Bld) 57.5 % 47-70 [facility] Potassium [Moles/Vol] 3.8 mmol/L 3.5-5.1 [facility] Protein [Mass/Vol] 7.3 g/dL 6.4-8.2 [facility] Sodium [Moles/Vol] 141 mmol/L 136-145 [facility] Triglyceride [Mass/Vol] 103 mg/dL <199 [facility] Comment on above: The drugs N-Acetylcy steine and Metamizole may falsely depress this assay.Serum Triglycerides Reference Interval Normal <150 mg/dL Borderline high 150 - 199 mg/dL High 200 - 499 mg/dL Very High > or = 500 mg/dL WBC (Bld) [#/Vol] 9.1 10*3/uL 4.4-11.0 [facility] Blood erythrocytes count (nu mber/volume)Ordered By: Rudy Boyer on 07-13-2022 RBC (Bld) [#/Vol] 4.34 10*6/uL 4.2-5.4 [facility] Blood hemoglobin measurement (mass/volume)Ordered By: Rudy Boyer on 07-13-2022 Hemoglobin (Bld) [Mass/Vol] 13.0 g/dL 12.0-15.0 [facility] Blood lymphocytes/100 leukoc ytesOrdered By: Rudy Boyer on 07-13-2022 Lymphocytes/100 WBC (Bld) 33.3 % 19-41 [facility] Blood monocytes/100 leukocyt esOrdered By: Rudyjody Boyer on 07-13-2022 Monocytes/100 WBC (Bld) 5.6 % 0-10 [facility] Blood platelet mean volumeOr dered By: Rudy Boyer on 07-13-2022 Platelet mean volume (Bld) [Entitic vol] 9.8 fL 6.2-12.0 [facility] Determination of erythrocyte mean corpuscular volume (MCV)Ordered By: Rudy Boyer on 07-13-2022 MCV (RBC) [Entitic vol] 94.0 fL 81-99 [facility] Hematocrit Auto (Bld) [Volum e fraction]Ordered By: Rudyjody Boyer on 07-13-2022 Hematocrit (Bld) [Volume fraction] 40.8 % 37-47 [facility] Laboratory - Chemistry and C hemistry - challengeOrdered By: Rudyjody Boyer on 07-13-2022 ALP [Catalytic activity/Vol] 88 U/L 45-117 [facility] ALT [Catalytic activity/Vol] 21 U/L 13-56 [facility] CO2 [Moles/Vol] 24.0 mmol/L 21.0-32.0 [facility] Globulin (S) [Mass/Vol] 3.6 g/dL 2.2-4.2 [facility] Urea nitrogen/Creatinine [Mass ratio] 24.1 mg/mg 10-20 [facility] Laboratory - Hematology and Cell countsOrdered By: Rudy Boyer on 07-13-2022 Erythrocyte distribution width (RBC) [Entitic vol] 42.7 fL 35.1-43.9 [facility] Erythrocyte distribution width (RBC) [Ratio] 12.3 % 11.6-14.6 [facility] Immature granulocytes/100 WBC (Bld) 0.300 % 0.0-0.9 [facility] Comment on above: IG% - Immature Granu locytes (promyelocytes, myelocytes and metamyelocytes) > 1% indicates that a LEFT SHIFT is Present. MCH (RBC) [Entitic mass] 30.0 pg 27.0-32.0 [facility] Nucleated RBC/100 WBC (Bld) [Ratio] 0 % 0-5 [facility] MCHC Auto (RBC) [Mass/Vol]Or dered By: Rudy Boyer on 07-13-2022 MCHC (RBC) [Mass/Vol] 31.9 g/dL 32-36 [facility] No Panel InformationOrdered By: Rudy Boyer on 07-13-2022 Estimated GFR (MDRD) Amer 62 mL/min >60 [facility] Comment on above: GFR Calc Estimated GFR (MDRD) Non-Af Amer 51 mL/min >60 [facility] Comment on above: Non- GFR Calc Vitamin D 25-Hydroxy 102.8 ng/mL [facility] Comment on above: Vitamin D 25(OH) [...] 07-13-2022 Platelets (Bld) [#/Vol] 307 10*3/uL 150-450 [facility] Serum or plasma albumin timbo urement (mass/volume)Ordered By: Rudy Boyer on 07-13-2022 Albumin [Mass/Vol] 3.7 g/dL 3.2-5.0 [facility] Serum or plasma albumin/glob ulin mass ratioOrdered By: Rudy Boyer on 07-13-2022 Albumin/Globulin [Mass ratio] 1.0 {ratio} 0.9-2.4 [facility] Serum or plasma calcium timbo urement (mass/volume)Ordered By: Rudy Boyer on 07-13-2022 Calcium [Mass/Vol] 8.7 mg/dL 8.5-10.1 [facility] Serum or plasma cholesterol in HDL measurement (mass/volume)Ordered By: Rudyjody Boyer on 07-13-2022 Cholesterol in HDL [Mass/Vol] 46 mg/dL >40 [facility] Comment on above: The drugs N-Acetylcy steine and Metamizole may falsely depress this assay. Reference Range HDL <40 mg/dL Low HDL Cholesterol HDL >or= 60 mg/dL High HDL Cholesterol Serum or plasma cholesterol in VLDL measurement (mass/volume)Ordered By: Rudy Boyer on 07-13-2022 Cholesterol in VLDL [Mass/Vol] 21 mg/dL 5-40 [facility] Serum or plasma creatinine m easurement (mass/volume)Ordered By: Rudy Boyer on 07-13-2022 Creatinine [Mass/Vol] 1.12 mg/dL 0.55-1.02 [facility] Comment on above: The validity of the calculated GFR & GFRAA in patients over 70 years has not been determined. Clinical correlation is essential. Serum or plasma low density lipoprotein (LDL) cholesterol measurement (mass/volume)Ordered By: Rudy Boyer on 07-13-2022 Cholesterol in LDL [Mass/Vol] 55 mg/dL 0-130 [facility] Serum or plasma urea nitroge n measurement (mass/volume)Ordered By: Rudy Boyer on 07-13-2022 Urea nitrogen [Mass/Vol] 27 mg/dL 7-18 [facility] Thin prep Papanicolaou smear with manual screeningOrdered By: Rudy Boyer on 07-13-2022 Thin prep Papanicolaou smear with manual screening 17 U/L 15-37 [facility] Thin prep Papanicolaou smear with manual screening 8 5-15 [facility] ANES Sen 03-05-2019 ANES POST HNO ID: [id number] Author: Dieter Gross Service: Anesthesiology Author Type: [...] 16, 2018 TIME: 12:30 PM PAGER/CONTACT #: [phone] [facility] ANES PREOPon 04-16-2018 ANES PREOP HNO ID: [id number] Author: Dieter Gross Service: Anesthesiology Author Type: [...] April 16, 2018 TIME: 7:10 AM CSN: [id number] [facility] HISTORY PHYSICALon HISTORY PHYSICAL HNO ID: [id number] Author: Regina Chopra Service: Pain Management Author [...] DATE: April 16, 2018 TIME: 7:35 AM [facility] NURSING PROGon 04-16-2018 Protein mass conc HNO ID: [id number] Author: Gissel ZazuetaRn) HAMILTON Banegas Service: Nursing Author Type: Registered Nurse Type: Nursing Progress Note Filed: 04/16/2018 10:52 AM Note Text: Nursing Progress Note Patient Name: Donna Marsh Patient Location: [facility] 1050 Pt received in ASCU on cart from PACU. Snack given. This note was completed by: Gissel Banegas RN [facility] Protein mass conc HNO ID: [id number] Author: Fátima ZazuetaRn) HAMILTON Lopez Service: Nursing Author Type: Registered Nurse Type: Nursing Progress Note Filed: 04/16/2018 10:32 AM Note Text: Dr. Gross made aware of pt blood pressure said pt took her blood pressure meds she is alert on c/o dissiness ok to go to phase 2 96/46. [facility] Protein mass conc HNO ID: [id number] Author: Fátima ZazuetaRn) HAMILTON Lopez Service: Nursing Author Type: Registered Nurse Type: Nursing Progress Note Filed: 04/16/2018 10:27 AM Note Text: Dr. Chopra aware of pt blood pressure 90/47 said to watch a little while longer before going to Phase 2. [facility] Protein mass conc HNO ID: [id number] Author: Amy (Rn) HAMILTON Crump Service: ? Author Type: Registered Nurse Type: Nursing Progress Note Filed: 04/16/2018 8:11 AM Note Text: @ 0653 Pt received to ASCU, ambulatory slowly with a wheeled walker. Pt pleasant AND cooperative with care. @ 0800 Ready for OR - @ bedside. [facility] OPERATIVE NOon 04-16-2018 OPERATIVE NO HNO ID: [id number] Author: Regina Chopra Service: Pain Management Author [...] DATE: April 16, 2018 TIME: 9:25 AM [facility] PT EDon 04-16-2018 PT ED HNO ID: [id number] Author: Jesús ZazuetaRnLoli Cannon RN Service: Nursing [...] Signed By: Jesús Cannon RN In Department: [facility] SURGERY [facility] PT ED HNO ID: [id number] Author: Amy Crump RN Service: ? Author [...] Signed By: Amy Crump RN In Department: [facility] SURGERY [facility] XR FLUOROSCOPYon 04-16-2018 XR FLUOROSCOPY * * *Final Report* * * DATE OF EXAM: Apr 16 2018 9:30AM [facility] 5513 - XR FLUOROSCOPY / PROCEDURE REASON: PAIN - KYPHOPLASTY LUMBAR * * * * Physician Interpretation * * * * INDICATION: PAIN - KYPHOPLASTY LUMBAR TECHNIQUE: Fluoroscopy with 2 views of the L5 vertebra Fluoroscopic Radiation Summary: Plane A, Air Kerma: 125.6 mGy Dose Area Product (DAP): [id number] mGy*cmS2 Fluoro time: 4:28 min:sec FINDINGS/ IMPRESSION: Images were obtained after vertebral augmentation of L5. Cement is present within the vertebra. Please refer to the performing LIP's report. Basting Marker: PSCB Transcribe Date/Time: Apr 16 2018 12:08P Dictated by : AZAEL PARRA MD This examination was interpreted and the report reviewed and electronically signed by: AZAEL PARRA MD on Apr 16 2018 12:08PM EST [id number] [facility] HOSPon 04-10-2018 HOSP Patient:Donna Marsh MRN: [...] the following basenames: K,HCT Progress Notes (PAIN [facility]): Regina Chopra MD 04/10/2018 1:33 PM Signed [facility] NOTE DATE: April 10, [...] She is currently receiving medications through the [facility]. She is not having difficulty with her [facility] medications. The medications are effective. The patient [...] Urine pH, Pain [place] 4-10 07/03/2016 Specific [place],Ur Pain [place] 1.005-1.020 07/03/2016 Oxidants,Ur Negative 07/03/2016 [...] record for those providers who practice within [facility] or with access to [employer] via MD Connect, or via letter. Previous Version Progress Notes ([facility]): Yolanda Ramirez MA 04/02/2018 2:15 [...] coming in for MRI results - 04/08/18 [facility] MRI LUMBAR SPINE WO IVCONon 03-27-2018 [...] on Mar 27 2018 10:59AM EST [id number] [facility] MRI THORACIC SPINE WO IVCONo n 03-27-2018 MRI THORACIC SPINE WO IVCON * * *Final Report* * * DATE OF EXAM: Mar 27 2018 10:28AM [facility] 0325 - MRI THORACIC SPINE WO [...] on Mar 27 2018 11:17AM EST [id number] [facility] NURSING PROGon 03-08-2018 Protein mass conc HNO ID: [id number] Author: Tiana ZazuetaCristela Munson RN Service: Nursing [...] Comment: NSR, Low voltage QRS scanned in [facility] on 03/07/17 Heart Cath Date: 01/07/18 Comment: in Care Everywhere Last Menstrual Period: LMP Date: N/A Postmenopausal >1yr: Yes, S/P Hysterectomy: Yes BMI Percentile (PEDS): N/A BMI 32.1 Risk Assessment: CONSULTS: Dr Hayes for recent cardiac notes and FU after hospitalization--F/U 01/25/2018 Notes in Care Everywhere Anesthesia Review: 12/2017 hospitalized in [facility] 3-4 days for Takotsubo cardiomyopathy, cath done and no CAD. Following with Dr Hayes, recently feeling OK. Narrative: Takotsubu cardiomyopathy Pre-op Considerations: HX DM- oral med Chart Check: COMPLETED Tiana Munson RN March 08, 2018 8:02 AM Normal [facility] HISTORY PHYSICALon HISTORY PHYSICAL HNO ID: [id number] Author: Jen Bermudez ([place]) Service: (none) Author Type: Physician Corner Bead Operator Type: HANDP Filed: 03/08/2018 10:07 AM Note [...] Lumbar Vertebra, Initial Encounter for Closed Fracture ([facility]) Takotsubo Cardiomyopathy Subjective CHIEF COMPLAINT: back pain [...] Hypertension, Valvular Heart Disease, 01/05/2018 hospitalized in [facility] 3-4 days for Chest pressure and essential NL cath and echo determined Takotsubo cardiomyopathy, EF 40%cath done and no CAD. Followed with Dr Hayes 01/25/18 and repeat echo in 3-4 months, recently feeling OK., Negative for Arrhythmia, DVT/PE GI: Positive for GERD, Negative for PUD, Liver disease, Pancreatitis, IBS : Urge and FRIEDA- on rx, GFR 09/2017 45 GFR 52 (12/2017) PATENT SEARCHER: Negative for abnormal vaginal bleeding, abnormal vaginal [...] 07, 2018 TIME: 3:44 PM PAGER/CONTACT #: [facility] Vital Signs Date Time Vital Sign Value Performing Clinician Facility 08-11-2024 10:09-0400 Body mass index (BMI) [Ratio] 26.49 kg/m2 Jeromy Lai MD Work Phone: [facility] 08-11-2024 10:09-0400 Body temperature 97.5 [degF] Jeromy Lai MD Work Phone: [facility] 08-11-2024 10:09-0400 Body weight 65.5 kg Jeromy Lai MD Work Phone: [facility] 08-11-2024 10:09-0400 Diastolic blood pressure 72 mm[Hg] Jeromy Lai MD Work Phone: [facility] 08-11-2024 10:09-0400 Heart rate 70 /min Jeromy Lai MD Work Phone: [facility] 08-11-2024 10:09-0400 Respiratory rate 12 /min Jeromy Lai MD Work Phone: [facility] 08-11-2024 10:09-0400 SaO2% (BldA) [Mass fraction] 95 % Jeromy Lai MD Work Phone: [facility] 08-11-2024 10:09-0400 Systolic blood pressure 118 mm[Hg] Jeromy Lai MD Work Phone: [facility] 06-20-2024 11:33-0400 Body height 157.2 cm Regina Oden DO Work Phone: [facility] 06-20-2024 11:33-0400 Body mass index (BMI) [Ratio] 26.23 kg/m2 Regina Broi DO Work Phone: [facility] 06-20-2024 11:33-0400 Body temperature 97.3 [degF] Regina Masci DO Work Phone: [facility] 06-20-2024 11:33-0400 Body weight 64.86 kg Regina Masci DO Work Phone: [facility] 06-20-2024 11:33-0400 Diastolic blood pressure 75 mm[Hg] Regina Masci DO Work Phone: [facility] 06-20-2024 11:33-0400 Heart rate 77 /min Regina Masci DO Work Phone: [facility] 06-20-2024 11:33-0400 SaO2% (BldA) [Mass fraction] 99 % Regina Broi DO Work Phone: [facility] 06-20-2024 11:33-0400 Systolic blood pressure 129 mm[Hg] Regina Masci DO Work Phone: [facility] 05-17-2024 14:30-0400 Body temperature 97.9 [degF] Rudy Sharla INDUSTRIAL WASTE INSPECTOR-C Work Phone: [facility] 05-17-2024 14:30-0400 Diastolic blood pressure 62 mm[Hg] Rudy Sharla INDUSTRIAL WASTE INSPECTOR-C Work Phone: [facility] 05-17-2024 14:30-0400 Heart rate 89 /min Rudy Sharla INDUSTRIAL WASTE INSPECTOR-C Work Phone: [facility] 05-17-2024 14:30-0400 Respiratory rate 16 /min Rudy Sharla INDUSTRIAL WASTE INSPECTOR-C Work Phone: [facility] 05-17-2024 14:30-0400 SaO2% (BldA) [Mass fraction] 95 % Rudy Sharla INDUSTRIAL WASTE INSPECTOR-C Work Phone: [facility] 05-17-2024 14:30-0400 Systolic blood pressure 115 mm[Hg] Rudy Sharla INDUSTRIAL WASTE INSPECTOR-C Work Phone: [facility] 05-17-2024 04:36-0400 Body mass index (BMI) [Ratio] 27.8 kg/m2 Rudy Sharla INDUSTRIAL WASTE INSPECTOR-C Work Phone: [facility] 05-17-2024 04:36-0400 Body weight 71.3 kg Rudy Sharla INDUSTRIAL WASTE INSPECTOR-C Work Phone: [facility] 05-15-2024 14:22-0400 Body height 160.02 cm Rudy Sharla INDUSTRIAL WASTE INSPECTOR-C Work Phone: [facility] 05-13-2024 22:00-0400 Body temperature 97.2 [degF] Rudy Sharla INDUSTRIAL WASTE INSPECTOR-C Work Phone: [facility] 05-13-2024 22:00-0400 Diastolic blood pressure 114 mm[Hg] Rudy Sharla INDUSTRIAL WASTE INSPECTOR-C Work Phone: [facility] 05-13-2024 22:00-0400 Heart rate 88 /min Rudy Sharla INDUSTRIAL WASTE INSPECTOR-C Work Phone: [facility] 05-13-2024 22:00-0400 Respiratory rate 25 /min Rudy Sharla INDUSTRIAL WASTE INSPECTOR-C Work Phone: [facility] 05-13-2024 22:00-0400 SaO2% (BldA) [Mass fraction] 95 % Rudy Sharla INDUSTRIAL WASTE INSPECTOR-C Work Phone: [facility] 05-13-2024 22:00-0400 Systolic blood pressure 214 mm[Hg] Rudy Sharla INDUSTRIAL WASTE INSPECTOR-C Work Phone: [facility] 05-13-2024 15:45-0400 Body height 165.1 cm Rudy Sharla INDUSTRIAL WASTE INSPECTOR-C Work Phone: [facility] 05-13-2024 15:45-0400 Body mass index (BMI) [Ratio] 25.6 kg/m2 Rudy Sharla INDUSTRIAL WASTE INSPECTOR-C Work Phone: [facility] 05-13-2024 15:45-0400 Body weight 69.9 kg Rudy Sharla INDUSTRIAL WASTE INSPECTOR-C Work Phone: [facility] 04-24-2024 20:20-0400 Body temperature 98 [degF] Rudy Sharla INDUSTRIAL WASTE INSPECTOR-C Work Phone: [facility] 04-24-2024 20:20-0400 Diastolic blood pressure 62 mm[Hg] Rudy Sharla INDUSTRIAL WASTE INSPECTOR-C Work Phone: [facility] 04-24-2024 20:20-0400 Heart rate 72 /min Rudy Sharla INDUSTRIAL WASTE INSPECTOR-C Work Phone: [facility] 04-24-2024 20:20-0400 Respiratory rate 16 /min Rudy Sharla INDUSTRIAL WASTE INSPECTOR-C Work Phone: [facility] 04-24-2024 20:20-0400 SaO2% (BldA) [Mass fraction] 97 % Rudy Sharla INDUSTRIAL WASTE INSPECTOR-C Work Phone: [facility] 04-24-2024 20:20-0400 Systolic blood pressure 141 mm[Hg] Rudy Sharla INDUSTRIAL WASTE INSPECTOR-C Work Phone: [facility] 04-24-2024 05:26-0400 Body mass index (BMI) [Ratio] 25 kg/m2 Rudy Sharla INDUSTRIAL WASTE INSPECTOR-C Work Phone: [facility] 04-24-2024 05:26-0400 Body weight 68.1 kg Rudy Sharla INDUSTRIAL WASTE INSPECTOR-C Work Phone: [facility] 04-23-2024 16:05-0400 Body height 165.1 cm Rudy Sharla INDUSTRIAL WASTE INSPECTOR-C Work Phone: [facility] 04-22-2024 08:30-0400 Inhaled oxygen flow rate 2 L/min Rudy Sharla INDUSTRIAL WASTE INSPECTOR-C Work Phone: [facility] 04-21-2024 06:00-0400 Inhaled oxygen concentration 30 % Rudy Sharla INDUSTRIAL WASTE INSPECTOR-C Work Phone: [facility] 04-20-2024 20:15-0400 Diastolic blood pressure 65 mm[Hg] Rudy Sharla INDUSTRIAL WASTE INSPECTOR-C Work Phone: [facility] 04-20-2024 20:15-0400 Heart rate 100 /min Rudy Sharla INDUSTRIAL WASTE INSPECTOR-C Work Phone: [facility] 04-20-2024 20:15-0400 Respiratory rate 19 /min Rudy Sharla INDUSTRIAL WASTE INSPECTOR-C Work Phone: [facility] 04-20-2024 20:15-0400 Systolic blood pressure 110 mm[Hg] Rudy Sharla INDUSTRIAL WASTE INSPECTOR-C Work Phone: [facility] 04-20-2024 20:00-0400 Body temperature 97.7 [degF] Rudy Sharla INDUSTRIAL WASTE INSPECTOR-C Work Phone: [facility] 04-20-2024 20:00-0400 SaO2% (BldA) [Mass fraction] 97 % Rudy Boyer INDUSTRIAL WASTE INSPECTOR-C Work Phone: [facility] 04-20-2024 15:06-0400 Body height 165.1 cm Rudy Boyer INDUSTRIAL WASTE INSPECTOR-C Work Phone: [facility] 04-20-2024 15:06-0400 Body mass index (BMI) [Ratio] 24.6 kg/m2 Rudy Adornogar INDUSTRIAL WASTE INSPECTOR-C Work Phone: [facility] 04-20-2024 15:06-0400 Body weight 67.1 kg Rudy Adornogar INDUSTRIAL WASTE INSPECTOR-C Work Phone: [facility] 02-17-2024 15:20-0500 Body temperature 98.6 [degF] Rudy Adornogar INDUSTRIAL WASTE INSPECTOR-C Work Phone: [facility] 02-17-2024 15:20-0500 Diastolic blood pressure 75 mm[Hg] Rudy Adornogar INDUSTRIAL WASTE INSPECTOR-C Work Phone: [facility] 02-17-2024 15:20-0500 Heart rate 81 /min Rudy Sharla INDUSTRIAL WASTE INSPECTOR-C Work Phone: [facility] 02-17-2024 15:20-0500 Respiratory rate 18 /min Rudy Sharla INDUSTRIAL WASTE INSPECTOR-C Work Phone: [facility] 02-17-2024 15:20-0500 SaO2% (BldA) [Mass fraction] 100 % Rudy Sharla INDUSTRIAL WASTE INSPECTOR-C Work Phone: [facility] 02-17-2024 15:20-0500 Systolic blood pressure 135 mm[Hg] Rudy Sharla INDUSTRIAL WASTE INSPECTOR-C Work Phone: [facility] 02-17-2024 03:51-0500 Body mass index (BMI) [Ratio] 25 kg/m2 Rudy Sharla INDUSTRIAL WASTE INSPECTOR-C Work Phone: [facility] 02-17-2024 03:51-0500 Body weight 68.2 kg Rudy Sharla INDUSTRIAL WASTE INSPECTOR-C Work Phone: [facility] 01-05-2024 09:15-0500 Body temperature 98.1 [degF] Rudy Sharla INDUSTRIAL WASTE INSPECTOR-C Work Phone: [facility] 01-05-2024 09:15-0500 Diastolic blood pressure 70 mm[Hg] Rudy Sharla INDUSTRIAL WASTE INSPECTOR-C Work Phone: [facility] 01-05-2024 09:15-0500 Heart rate 86 /min Rudy Sharla INDUSTRIAL WASTE INSPECTOR-C Work Phone: [facility] 01-05-2024 09:15-0500 Respiratory rate 18 /min Rudy Sharla INDUSTRIAL WASTE INSPECTOR-C Work Phone: [facility] 01-05-2024 09:15-0500 SaO2% (BldA) [Mass fraction] 100 % Rudy Sharla INDUSTRIAL WASTE INSPECTOR-C Work Phone: [facility] 01-05-2024 09:15-0500 Systolic blood pressure 132 mm[Hg] Rudy Sharla INDUSTRIAL WASTE INSPECTOR-C Work Phone: [facility] 01-05-2024 05:55-0500 Body mass index (BMI) [Ratio] 26.9 kg/m2 Rudy Sharla INDUSTRIAL WASTE INSPECTOR-C Work Phone: [facility] 01-05-2024 05:55-0500 Body weight 73.3 kg Rudyjody Boyer INDUSTRIAL WASTE INSPECTOR-C Work Phone: [facility] 01-04-2024 11:04-0500 Inhaled oxygen concentration 2 % Rudy Sharla INDUSTRIAL WASTE INSPECTOR-C Work Phone: [facility] 01-04-2024 11:04-0500 Inhaled oxygen flow rate 2 L/min Rudy Sharla INDUSTRIAL WASTE INSPECTOR-C Work Phone: [facility] 04-18-2023 09:24-0500 Body temperature 98.2 [degF] INDUSTRIAL WASTE INSPECTOR-C Rudy Sharla Work Phone: [facility] 04-18-2023 09:24-0500 Diastolic blood pressure 61 mm[Hg] INDUSTRIAL WASTE INSPECTOR-C Rudy Sharla Work Phone: [facility] 04-18-2023 09:24-0500 Heart rate 84 /min INDUSTRIAL WASTE INSPECTOR-C Rudy Sharla Work Phone: [facility] 04-18-2023 09:24-0500 Respiratory rate 16 /min INDUSTRIAL WASTE INSPECTOR-C Rudy Sharla Work Phone: [facility] 04-18-2023 09:24-0500 SaO2% (BldA) [Mass fraction] 94 % INDUSTRIAL WASTE INSPECTOR-C Rudy Sharla Work Phone: [facility] 04-18-2023 09:24-0500 Systolic blood pressure 118 mm[Hg] INDUSTRIAL WASTE INSPECTOR-C Rudy Sharla Work Phone: [facility] 04-18-2023 05:51-0500 Body mass index (BMI) [Ratio] 27.5 kg/m2 INDUSTRIAL WASTE INSPECTOR-C Rudy Sharla Work Phone: [facility] 04-18-2023 05:51-0500 Body weight 75 kg INDUSTRIAL WASTE INSPECTOR-Madelyn Boyer Work Phone: [facility] 04-17-2023 07:00-0500 Inhaled oxygen flow rate 2 L/min INDUSTRIAL WASTE INSPECTOR-C Rudy Boyer Work Phone: [facility] 04-16-2023 09:23-0500 Body height 165.1 cm INDUSTRIAL WASTE INSPECTOR-Madelyn Rudy Boyer Work Phone: [facility] 04-14-2023 08:09-0500 Body temperature 97.2 [degF] [facility] 04-14-2023 08:09-0500 Diastolic blood pressure 78 mm[Hg] [facility] 04-14-2023 08:09-0500 Heart rate 96 /min [facility] 04-14-2023 08:09-0500 Respiratory rate 16 /min [facility] 04-14-2023 08:09-0500 SaO2% (BldA) [Mass fraction] 94 % [facility] 04-14-2023 08:09-0500 Systolic blood pressure 119 mm[Hg] [facility] 04-14-2023 08:03-0500 Inhaled oxygen flow rate 2 L/min [facility] 04-14-2023 01:55-0500 Body height 165.[address] [facility] 04-14-2023 01:55-0500 Body mass index (BMI) [Ratio] 26.6 kg/m2 [facility] 04-14-2023 01:55-0500 Body weight 72.[address] [facility] 04-10-2023 14:47-0500 Body height 162.6 cm Nicola Adhikari MD Work Phone: [facility] 04-10-2023 14:47-0500 Body mass index (BMI) [Ratio] 30.55 kg/m2 Nicola Adhikari MD Work Phone: [facility] 04-10-2023 14:47-0500 Body weight 80.74 kg Nicola Adhikari MD Work Phone: [facility] 01-01-2023 20:17-0500 Body temperature 98.01 [degF] Esteban Hawley MD Work Phone: [employer] 01-01-2023 20:17-0500 Diastolic blood pressure 63 mm[Hg] Esteban Hawley MD Work Phone: [employer] [facility] 01-01-2023 20:17-0500 Heart rate 102 /min Esteban Hawley MD Work Phone: [facility] [employer] 01-01-2023 20:17-0500 Respiratory rate 16 /min Esteban Hawley MD Work Phone: [employer] 01-01-2023 20:17-0500 SaO2% (BldA) [Mass fraction] 97 % Esteban Hawley MD Work Phone: [employer] [facility] 01-01-2023 20:17-0500 Systolic blood pressure 110 mm[Hg] Esteban Hawley MD Work Phone: [facility] [employer] 01-01-2023 09:58-0500 Body height 162.6 cm Esteban Hawley MD Work Phone: [employer] [facility] 12-26-2022 06:29-0500 Body mass index (BMI) [Ratio] 30.61 kg/m2 Esteban Hawley MD Work Phone: [employer] [facility] 12-26-2022 06:29-0500 Body weight 80.9 kg Esteban Hawley MD Work Phone: [facility] [employer] 12-24-2022 04:42-0500 SaO2% (BldA) [Mass fraction] 99.0 % Esteban Hawley MD Work Phone: [employer] [facility] 12-23-2022 23:05-0500 SaO2% (BldA) [Mass fraction] 98.8 % Esteban Hawley MD Work Phone: [employer] [facility] 12-23-2022 21:33-0500 SaO2% (BldA) [Mass fraction] 98.9 % Esteban Hawley MD Work Phone: [facility] 12-23-2022 19:30-0500 Diastolic blood pressure 71 mm[Hg] [facility] 12-23-2022 19:30-0500 Heart rate 124 /min [facility] 12-23-2022 19:30-0500 Respiratory rate 18 /min [facility] 12-23-2022 19:30-0500 SaO2% (BldA) [Mass fraction] 95 % [facility] 12-23-2022 19:30-0500 Systolic blood pressure 105 mm[Hg] [facility] 12-23-2022 19:15-0500 Inhaled oxygen flow rate 2 L/min [facility] 12-23-2022 19:04-0500 Body temperature 96.8 [degF] [facility] 12-23-2022 14:14-0500 Body height 162.[address] [facility] 12-23-2022 14:14-0500 Body mass index (BMI) [Ratio] 28.8 kg/m2 [facility] 12-23-2022 14:14-0500 Body weight 76.[address] [facility] 11-06-2022 13:51-0400 Body height 162.6 cm Phyllis Orozcofiglio PA-C Work Phone: [facility] 11-06-2022 13:51-0400 Body mass index (BMI) [Ratio] 25.75 kg/m2 Phyllis Orozcofiglio PA-C Work Phone: [facility] 11-06-2022 13:51-0400 Body weight 68.04 kg Phyllis Orozcofiglio PA-C Work Phone: [facility] 11-06-2022 13:51-0400 Diastolic blood pressure 74 mm[Hg] Phyllis Orozcofiglio PA-C Work Phone: [facility] 11-06-2022 13:51-0400 Heart rate 80 /min Phyllis Orozcofiglio PA-C Work Phone: [facility] 11-06-2022 13:51-0400 Systolic blood pressure 120 mm[Hg] Phyllis Orozcofiglio PA-C Work Phone: [facility] [employer] 10-15-2022 08:13-0400 Body temperature 96.4 [degF] Vineet Mckeon MD Work Phone: [facility] [employer] 10-15-2022 08:13-0400 Diastolic blood pressure 83 mm[Hg] Vineet Mckeon MD Work Phone: [facility] [employer] 10-15-2022 08:13-0400 Heart rate 89 /min Vineet Mckeon MD Work Phone: [facility] [employer] [facility] 10-15-2022 08:13-0400 Respiratory rate 18 /min Vineet Mckeon MD Work Phone: [facility] [employer] 10-15-2022 08:13-0400 SaO2% (BldA) [Mass fraction] 96 % Vineet Mckeon MD Work Phone: [facility] [employer] [facility] 10-15-2022 08:13-0400 Systolic blood pressure 108 mm[Hg] Vineet Mckeon MD Work Phone: [facility] [employer] [facility] 10-14-2022 05:00-0400 Body mass index (BMI) [Ratio] 25.75 kg/m2 Vineet Mckeon MD Work Phone: [facility] [employer] [facility] 10-14-2022 05:00-0400 Body weight 68.04 kg Vineet Mckeon MD Work Phone: [facility] [employer] [facility] 10-05-2022 11:31-0400 Body height 162.6 cm Vineet Mckeon MD Work Phone: [facility] [employer] [facility] 10-03-2022 14:07-0400 Body height 163.8 cm Cici Martinez MD Work Phone: [facility] [employer] [facility] 10-03-2022 14:07-0400 Body mass index (BMI) [Ratio] 24.5 kg/m2 Cici Martinez MD Work Phone: [facility] [employer] [facility] 10-03-2022 14:07-0400 Body weight 65.77 kg Cici Martinez MD Work Phone: [facility] [employer] [facility] 09-18-2022 11:03-0400 Diastolic blood pressure 60 mm[Hg] Dr. Cici Calderon Work Phone: [facility] 09-18-2022 11:03-0400 Heart rate 91 /min Dr. Cici Calderon Work Phone: [facility] 09-18-2022 11:03-0400 Respiratory rate 16 /min Dr. Cici Calderon Work Phone: [facility] 09-18-2022 11:03-0400 SaO2% (BldA) [Mass fraction] 100 % Dr. Cici Calderon Work Phone: [facility] 09-18-2022 11:03-0400 Systolic blood pressure 107 mm[Hg] Dr. Cici Calderon Work Phone: [facility] 09-18-2022 10:03-0400 Inhaled oxygen flow rate 2 L/min Dr. Cici Calderon Work Phone: [facility] 09-18-2022 08:56-0400 Body height 162.[address] Cici Calderon Work Phone: [facility] 09-18-2022 08:56-0400 Body mass index (BMI) [Ratio] 26.4 kg/m2 Dr. Cici Calderon Work Phone: [facility] 09-18-2022 08:56-0400 Body weight 69.[address] Cici Calderon Work Phone: [facility] 09-18-2022 08:20-0400 Body temperature 98.2 [degF] Dr. Cici Calderon Work Phone: [facility] 08-16-2022 16:14-0400 Body temperature 98.2 [degF] Dr. Cici Calderon Work Phone: [facility] 08-16-2022 16:14-0400 Diastolic blood pressure 62 mm[Hg] Dr. Cici Calderon Work Phone: [facility] 08-16-2022 16:14-0400 Heart rate 87 /min Dr. Cici Calderon Work Phone: [facility] 08-16-2022 16:14-0400 Inhaled oxygen flow rate 3 L/min Dr. Cici Calderon Work Phone: [facility] 08-16-2022 16:14-0400 Respiratory rate 18 /min Dr. Cici Calderon Work Phone: [facility] 08-16-2022 16:14-0400 SaO2% (BldA) [Mass fraction] 96 % Dr. Cici Calderon Work Phone: [facility] 08-16-2022 16:14-0400 Systolic blood pressure 134 mm[Hg] Dr. Cici Calderon Work Phone: [facility] 08-14-2022 15:23-0400 Body height 162.[address] Cici Calderon Work Phone: [phone] [place] [address] 08-14-2022 15:23-0400 Body weight 79.[address] Cici Calderon Work Phone: [facility] 08-09-2022 17:00-0400 Body mass index (BMI) [Ratio] 30.1 kg/m2 Dr. Cici Calderon Work Phone: [facility] 08-05-2022 21:26-0400 Body temperature 98.5 [degF] Dr. Cici Calderon Work Phone: [facility] 08-05-2022 21:26-0400 Diastolic blood pressure 85 mm[Hg] Dr. Cici Calderon Work Phone: [facility] 08-05-2022 21:26-0400 Heart rate 94 /min Dr. Cici Calderon Work Phone: [facility] 08-05-2022 21:26-0400 Respiratory rate 18 /min Dr. Cici Calderon Work Phone: [facility] 08-05-2022 21:26-0400 SaO2% (BldA) [Mass fraction] 94 % Dr. Cici Calderon Work Phone: [facility] 08-05-2022 21:26-0400 Systolic blood pressure 182 mm[Hg] Dr. Cici Calderon Work Phone: [facility] 08-05-2022 17:54-0400 Body height 162.[address] Cici Calderon Work Phone: [facility] 08-05-2022 17:54-0400 Body mass index (BMI) [Ratio] 33.5 kg/m2 Dr. Cici Calderon Work Phone: [facility] 08-05-2022 17:54-0400 Body weight 88.[address] Cici Calderon Work Phone: [facility] 07-06-2022 10:37-0400 Body height 163.[address] Cici Calderon Work Phone: [facility] 07-06-2022 10:37-0400 Body mass index (BMI) [Ratio] 29.6 kg/m2 Dr. Cici Calderon Work Phone: [facility] 07-06-2022 10:37-0400 Body weight 79.[address] Cici Calderon Work Phone: [facility] Encounters Encounter Date Encounter Type Care Provider Facility Start: 08-11-2024 End: 08-11-2024 Patient encounter procedure Jeromy Lai MD Work Phone: Endocrinology Comment on above: Age-related osteopor osis without current pathological fracture (Primary Dx); Osteoporosis without current pathological fracture, unspecified osteoporosis type Start: 08-11-2024 End: 08-11-2024 ambulatory [facility] Facility:[facility] Start: 06-20-2024 End: 06-20-2024 ambulatory [facility] Facility:[facility] Start: 06-20-2024 End: 06-20-2024 Patient encounter procedure [...] Patient Update Start: 05-29-2024 End: 05-29-2024 ambulatory [facility] Facility:[facility] Start: 05-19-2024 End: 05-19-2024 Emergency department patient visit [facility] Facility:[facility] Start: 05-17-2024 End: 05-18-2024 Emergency department patient visit [facility] Facility:[facility] Start: 05-17-2024 Dr. Anuja santoro MD [facility] Work Phone: Start: 05-16-2024 Dr. Anuja santoro MD [facility] Work Phone: Start: 05-15-2024 Dr. Anuja santoro MD [facility] Work Phone: Start: 05-14-2024 ambulatory [facility] Start: 05-14-2024 End: 05-17-2024 Evaluation and management of inpatient [facility] INDUSTRIAL WASTE INSPECTOR-C Work Phone: [facility] Work Phone: Start: 05-14-2024 End: 05-17-2024 Dr. Anuja Murcia MD -Progressive Care Unit Work Phone: Start: 05-14-2024 Dr. Anuja santoro MD [facility] Work Phone: Start: 05-13-2024 ambulatory [facility] Start: 05-13-2024 observation encounter Rudy abdalla INDUSTRIAL WASTE INSPECTOR-C Work Phone: [facility] Work Phone: Start: 05-13-2024 Dr. Kanwal segal MD -Progressive Care Unit Work Phone: Start: 04-24-2024 [facility] Work Phone: Start: 04-23-2024 Dr[facility] Work Phone: Start: 04-22-2024 Dr[facility] Work Phone: Start: 04-21-2024 [facility] Work Phone: Start: 04-21-2024 ambulatory Tiffanie Jimenez Facility:[facility] Start: 04-21-2024 Dr. Tiffanie Jimenez MD -[facility] Start: 04-21-2024 Dr. Atul Quezada DO [facility] Start: 04-20-2024 Evaluation and manag ement of inpatient Rudy Boyer INDUSTRIAL WASTE INSPECTOR-C Work Phone: [facility] Work Phone: Start: 04-20-2024 Dr. Kanwal segal MD -Intensive Care Unit Work Phone: Start: 04-20-2024 End: 04-24-2024 Evaluation and management of inpatient Rudy Sharla INDUSTRIAL WASTE INSPECTOR-C Work Phone: [facility] Work Phone: Start: 04-20-[facility] Start: 04-20-2024 End: 04-24-2024 Dr. Kanwal Aguilar MD [facility] Work Phone: Start: 02-17-2024 Dr. Jordana sandoval MD [facility] Work Phone: Start: 02-16-2024 Dr. Jordana sandoval MD [facility] Work Phone: Start: 02-15-2024 Dr. Jordana sandoval MD [facility] Work Phone: Start: 02-14-2024 Dr. Atul Quezada DO [facility] Start: 02-14-2024 Dr. Jordana sandoval MD [facility] Work Phone: Start: 02-13-2024 ambulatory Jordana Hopkins Facility :[facility] Start: 02-13-2024 End: 02-17-2024 Evaluation and management of inpatient Tamiko Quigley Facility:[facility] Start: 02-13-2024 End: 02-17-2024 Dr. Jordana Hopkins MD -Progressive Care Unit Work Phone: Start: 01-25-2024 End: 01-25-2024 Christopherraquel Huang -[facility] Work Phone: Start: 01-25-2024 End: 01-25-2024 ambulatory Christopher Wilmer Facility:[facility] Start: 01-05-2024 Dr. Zahra desir MD [facility] Work Phone: Start: 01-04-2024 ambulatory Christophertalon Huang Facility :[facility] Start: 01-04-2024 Christopherraquel Huang DO -[facility] Start: 01-04-2024 End: 01-04-2024 ambulatory Renemary Justice Facility:[facility] Start: 01-04-2024 End: 01-04-2024 Dr. Martina Rendon MD [facility] Work Phone: Start: 01-03-2024 Dr. Zahra desir MD -[facility] Work Phone: Start: 01-02-2024 Dr. Atul Quezada DO -[facility] -PMW Start: 01-02-2024 Dr. Zahra desir MD -[facility] Work Phone: Start: 01-01-2024 Dr. Atul Quezada DO -[facility] -PMW Start: 01-01-2024 Dr. Zahra desir MD -[facility] Work Phone: Start: 12-31-2023 Christopher Huang DO -[facility] Start: 12-31-2023 Dr. Atul Quezada DO -[facility] -[facility]W Start: 12-31-2023 ambulatory Rudy Sharla Facility:[facility] Start: 12-31-2023 Dr. Zahra desir MD -[facility] Work Phone: Start: 12-30-2023 ambulatory Tiffanie Jimenez Facility:[facility] Start: 12-30-2023 End: 01-05-2024 Evaluation and management of inpatient Rudy Sharla Facility:[facility] Start: 12-30-2023 End: 01-05-2024 Dr. Zahra Palacio MD -Progressive Care Unit Work Phone: Start: 11-05-2023 ambulatory Rudy Sharla Facility:[facility] Start: 10-11-2023 End: 10-11-2023 ambulatory Rudy Sharla Facility:[facility] Start: 10-10-2023 End: 10-11-2023 ambulatory Alameda Sharla Facility:[facility] Start: 09-20-2023 ambulatory Rudy Sharla Facility:[facility] Start: 09-17-2023 ambulatory [place] Sharla Facility:[facility] Start: 09-17-2023 ambulatory Nicola Jopperi Facility:[facility] Start: 09-17-2023 End: 09-20-2023 Evaluation and management of inpatient Nicola Jopperi Facility:[facility] Start: 06-18-2023 End: 06-18-2023 ambulatory INDUSTRIAL WASTE INSPECTOR-C Rudy Boyer Work Phone: [facility] Work Phone: Start: 06-18-2023 End: 06-18-2023 Patient encounter procedure INDUSTRIAL WASTE INSPECTOR-C Rudy Boyer Work Phone: [facility]-Radiology, [place] Work Phone: Start: 05-22-2023 ambulatory Nurse Vivek wall Work Phone: Allergy Comment on above: Allergy & immunology Previsit Instructions Start: 05-22-2023 E-mail encounter nayely peterson caregiver Nurse Vivek Main Work Phone: [facility] Start: 05-21-2023 Orders Only Nicola Adhikari MD Work Phone: [facility] Comment on above: Closed displaced int ertrochanteric fracture of right femur with routine healing, subsequent encounter (Primary Dx) Start: 04-18-2023 Non-patient / Non-visit INDUSTRIAL WASTE INSPECTOR-C R achel Sharla Work Phone: [facility] Work Phone: Start: 04-18-2023 INDUSTRIAL WASTE INSPECTOR-C Rudy Ed gar Work Phone: [facility] Work Phone: Start: 04-17-2023 Non-patient / Non-visit INDUSTRIAL WASTE INSPECTOR-C R achel Sharla Work Phone: [facility] Start: 04-17-2023 INDUSTRIAL WASTE INSPECTOR-C Rudy Ed gar Work Phone: [facility] Start: 04-17-2023 Non-patient / Non-visit INDUSTRIAL WASTE INSPECTOR-C R achel Sharla Work Phone: [facility] Work Phone: Start: 04-17-2023 INDUSTRIAL WASTE INSPECTOR-C Rudy Ed gar Work Phone: [facility] Work Phone: Start: 04-16-2023 Non-patient / Non-visit INDUSTRIAL WASTE INSPECTOR-C R achel Sharla Work Phone: [facility] Start: 04-16-2023 INDUSTRIAL WASTE INSPECTOR-C Rudy Ed gar Work Phone: [facility] Start: 04-16-2023 Non-patient / Non-visit INDUSTRIAL WASTE INSPECTOR-C R achel Sharla Work Phone: [facility] Work Phone: Start: 04-16-2023 INDUSTRIAL WASTE INSPECTOR-C Rudy Ed gar Work Phone: [facility] Work Phone: Start: 04-15-2023 Non-patient / Non-visit INDUSTRIAL WASTE INSPECTOR-C R achel Sharla Work Phone: [facility] Start: 04-15-2023 INDUSTRIAL WASTE INSPECTOR-C Rudy Ed gar Work Phone: [facility] Start: 04-15-2023 Non-patient / Non-visit INDUSTRIAL WASTE INSPECTOR-C R achel Sharla Work Phone: [facility] Inpatient Physicians Work Phone: Start: 04-15-2023 INDUSTRIAL WASTE INSPECTOR-C Rudy Ed gar Work Phone: [facility] Inpatient Physicians Work Phone: Start: 04-14-2023 End: 04-18-2023 Evaluation and management of inpatient INDUSTRIAL WASTE INSPECTOR-C Rudy Sharla Work Phone: [facility] Work Phone: Start: 04-14-2023 Non-patient / Non-visit INDUSTRIAL WASTE INSPECTOR-C R achel Sharla Work Phone: [facility] Inpatient Physicians Work Phone: Start: 04-14-2023 End: 04-18-2023 [facility]-Intensive Care Unit Work Phone: Start: 04-12-2023 Telephone encounter Nicola morrison MD Work Phone: [facility] Comment on above: Home Care Start: 04-10-2023 End: 04-10-2023 ambulatory NICOLA ADHIKARI [facility] Start: 04-10-2023 End: 04-10-2023 Office outpatient visit 15 minutes Nicola Adhikari MD Work Phone: [facility] Comment on above: Closed displaced int ertrochanteric fracture of right femur with routine healing, subsequent encounter (Primary Dx) Start: 04-02-2023 Orders Only Nicola Adhikari MD Work Phone: [facility] Comment on above: Closed displaced int ertrochanteric fracture of right femur with routine healing, subsequent encounter (Primary Dx) Start: 03-26-2023 End: 03-26-2023 Departed Referred INDUSTRIAL WASTE INSPECTORJarad Boyer Work Phone: [facility] Start: 03-26-2023 End: 03-26-2023 [facility] Start: 03-19-2023 End: 03-19-2023 ambulatory [facility] Work Phone: Start: 03-19-2023 End: 03-19-2023 Departed Referred ORESTES Boyer Work Phone: [facility] Start: 03-19-2023 Registered Referred [facility] Start: 03-19-2023 End: 03-19-2023 [facility] Start: 03-12-2023 End: 03-12-2023 ambulatory [facility] Work Phone: Start: 03-12-2023 End: 03-12-2023 Departed Referred ORESTES Boyer Work Phone: [facility] Start: 03-12-2023 Registered Referred [facility] Start: 03-12-2023 End: 03-12-2023 [facility] Start: 03-05-2023 End: 03-05-2023 ambulatory [facility] Work Phone: Start: 03-05-2023 End: 03-05-2023 Departed Referred [facility] Start: 03-05-2023 End: 03-05-2023 [facility] Start: 02-26-2023 End: 02-26-2023 ambulatory [facility] Work Phone: Start: 02-26-2023 End: 02-26-2023 Departed Referred [facility] Start: 02-26-2023 Registered Referred [facility] Start: 02-26-2023 End: 02-26-2023 [facility] Start: 02-19-2023 End: 02-19-2023 ambulatory [facility] Work Phone: Start: 02-19-2023 Registered Referred [facility] Start: 02-19-2023 End: 02-19-2023 [facility] Start: 02-13-2023 End: 02-13-2023 ambulatory [facility] Work Phone: Start: 02-13-2023 End: 02-13-2023 Departed Referred [facility] Start: 02-13-2023 Registered Referred [facility] Start: 02-13-2023 End: 02-13-2023 [facility] Start: 02-07-2023 End: 02-07-2023 ambulatory [facility] Work Phone: Start: 02-07-2023 End: 02-07-2023 Departed Referred [facility] Start: 02-07-2023 Registered Referred [facility] Start: 02-07-2023 End: 02-07-2023 [facility] Start: 02-06-2023 End: 02-06-2023 ambulatory [facility] Work Phone: Start: 02-06-2023 End: 02-06-2023 Departed Referred [facility] Start: 02-06-2023 End: 02-06-2023 [facility] Start: 01-29-2023 End: 01-29-2023 ambulatory [facility] Work Phone: Start: 01-29-2023 End: 01-29-2023 Departed Referred [facility] Start: 01-29-2023 Registered Referred [facility] Start: 01-29-2023 End: 01-29-2023 [facility] Start: 01-22-2023 End: 01-22-2023 ambulatory [facility] Work Phone: Start: 01-22-2023 End: 01-22-2023 Departed Referred [facility] Start: 01-22-2023 Registered Referred [facility] Start: 01-22-2023 End: 01-22-2023 [facility] Start: 01-15-2023 Registered Referred [facility] Start: 01-15-2023 [facility] Start: 01-10-2023 Registered Referred [facility] Start: 01-10-2023 [facility] Start: 01-08-2023 Registered Referred [facility] Start: 01-08-2023 [facility] Start: 01-05-2023 Registered Referred [facility] Start: 01-05-2023 [facility] Start: 01-02-2023 Telephone encounter Yifan downey PA-C Work Phone: [facility] Comment on above: orders need sent to facility PO Start: 01-02-2023 Registered Referred [facility] Start: 01-02-2023 [facility] Start: 12-29-2022 Orders Only Phyllis Guevara PA-C Work Phone: [facility] Comment on above: S/P total left hip a rthroplasty (Primary Dx) Start: 12-27-2022 ambulatory ANUJA WOLFE [facility] Start: 12-25-2022 ambulatory ANUJA SIESEL [facility] Start: 12-24-2022 End: 12-24-2022 Emergency department patient visit PCP NONE [facility] Start: 12-23-2022 Emergency department patient visit JOHN OVIEDO [facility] Start: 12-23-2022 End: 01-01-2023 Evaluation and management of inpatient ESTEBAN HAWLEY [facility] Start: 12-23-2022 End: 01-01-2023 Evaluation and management of inpatient Esteban Hawley MD Work Phone: [facility] Surgical Progressive Care Unit PCU H6 Start: 12-23-2022 End: 12-23-2022 Emergency department patient visit [facility]-Emergency Department Work Phone: Start: 12-23-2022 End: 12-23-2022 [facility]-Emergency Department Work Phone: Start: 12-23-2022 Documentation procedure Debi Lamb MD Work Phone: [facility] Orthopedic Surg Start: 11-06-2022 End: 11-06-2022 Orders Only Regina Oden DO Work Phone: Hematology/Oncology Comment on above: Lymphocytosis (Prima ry Dx) Appointment Start: 11-06-2022 End: 11-06-2022 Postop follow up visit related to original px Phyllis Guevara PA-C Work Phone: [facility] Comment on above: Failed orthopedic im plant, initial encounter ([facility]); S/P total left hip arthroplasty Start: 10-30-2022 Telephone encounter Berry Mares MD Work Phone: [facility] Comment on above: Orders (Lovenox) Start: 10-19-2022 Orders Only Regina Zavala O Work Phone: Hematology/Oncology Comment on above: Lytic bone lesions o n xray (Primary Dx) Appointment Start: 10-16-2022 Telephone encounter Miguel Chapman Work Phone: [facility] Clinical Communication Start: 10-03-2022 End: 09-03-2023 Evaluation and management of inpatient CICI [facility] Start: 10-03-2022 End: 10-15-2022 Evaluation and management of inpatient Vineet Mckeon MD Work Phone: [facility] TELEMETRY Start: 10-03-2022 End: 10-04-2022 ambulatory [facility] Start: 10-03-2022 End: 10-03-2022 ambulatory [facility] Start: 10-03-2022 End: 10-03-2022 Office outpatient new 60 minutes Cici Martinez MD Work Phone: [facility] Comment on above: [...] 09-18-[address] Cici Calderon Work Phone: [facility] Work Phone: Start: 09-18-2022 End: 09-18-[address] Cici Calderon Work Phone: [facility] Work Phone: Start: 08-17-2022 Telephone encounter Regina Wright ci DO Work Phone: Hematology/Oncology Comment on above: New Patient Start: 08-16-2022 Non-patient / Non-visit Dr. Babatunde Calderon Work Phone: [facility] Work Phone: Start: 08-15-2022 Non-patient / Non-visit Dr. Babatunde Calderon Work Phone: [facility] Start: 08-15-2022 Non-patient / Non-visit Dr. Babatunde Calderon Work Phone: [facility] Inpatient Physicians Work Phone: Start: 08-14-2022 Non-patient / Non-visit Dr. Babatunde Calderon Work Phone: [facility] Start: 08-14-2022 Non-patient / Non-visit Dr. Babatunde Calderon Work Phone: [facility] Inpatient Physicians Work Phone: Start: 08-13-2022 Non-patient / Non-visit Dr. Babatunde Calderon Work Phone: [facility] Inpatient Physicians Work Phone: Start: 08-12-2022 Non-patient / Non-visit Dr. Babatunde Calderon Work Phone: [facility] Inpatient Physicians Work Phone: Start: 08-11-2022 Non-patient / Non-visit Dr. Babatunde Calderon Work Phone: [facility] Inpatient Physicians Work Phone: Start: 08-10-2022 Non-patient / Non-visit Dr. Babatunde Calderon Work Phone: [facility] Inpatient Physicians Work Phone: Start: 08-09-2022 Non-patient / Non-visit Dr. Babatunde Calderon Work Phone: [facility] Inpatient Physicians Work Phone: Start: 08-08-2022 Non-patient / Non-visit Dr. Babatunde Calderon Work Phone: [facility] Inpatient Physicians Work Phone: Start: 08-07-2022 Non-patient / Non-visit Dr. Babatunde Calderon Work Phone: [facility] Inpatient Physicians Work Phone: Start: 08-07-2022 End: 08-07-2022 Non-patient / Non-visit Dr. Cici Calderon Work Phone: [facility] Work Phone: Start: 08-06-2022 Non-patient / Non-visit Dr. Babatunde Calderon Work Phone: [facility] Inpatient Physicians Work Phone: Start: 08-05-2022 End: 08-16-2022 Evaluation and management of inpatient Dr. Cici Calderon Work Phone: [facility]-Medical Surgical 3 Start: 07-13-2022 End: 07-13-[address] Cici Calderon Work Phone: [facility] Work Phone: Start: 07-13-2022 End: 07-13-[address] [facility] Start: 07-06-2022 End: 07-06-[address] Cici Calderon Work Phone: [facility] Start: 07-26-2021 End: 07-26-2021 Patient encounter [facility] Start: 04-16-2018 End: 04-16-2018 Patient encounter procedure [facility] Start: 03-27-2018 End: 03-27-2018 Patient encounter procedure [facility] Start: 03-07-2018 Encounter for other preprocedural examination [facility] Start: 03-07-2018 End: 03-08-2018 Patient encounter procedure [facility] Start: 09-16-2016 Ambulatory UNKNOWN PROVIDER [facility] Start: 07-27-2008 End: 08-03-2012 Patient encounter status Regina Oden DO Work Phone: [facility] Procedures Date Procedure Procedure Detail Performing Clinician Start: 05-16-2024 X-ray of chest, PA and lateral views Rudy Sharla INDUSTRIAL WASTE INSPECTOR-C Work Phone: Start: 05-14-2024 Complete ultrasound of kidneys and bladder Rudy Sharla INDUSTRIAL WASTE INSPECTOR-C Work Phone: Start: 05-13-2024 CT of head without contrast Rudy Sharla INDUSTRIAL WASTE INSPECTOR-C Work Phone: Start: 05-13-2024 CT of lumbar spine Rudy Sharla INDUSTRIAL WASTE INSPECTOR-C Work Phone: Start: 04-20-2024 CT of abdomen and pelvis without contrast Rudy Sharla INDUSTRIAL WASTE INSPECTOR-C Work Phone: Start: 04-20-2024 Plain radiography of pelvis Rudy Sharla INDUSTRIAL WASTE INSPECTOR-C Work Phone: Start: 04-20-2024 CT cervical spine without contrast Racxenia hernandez Sharla INDUSTRIAL WASTE INSPECTOR-C Work Phone: Start: 04-20-2024 CT of chest without contrast Rudy Edga r INDUSTRIAL WASTE INSPECTOR-C Work Phone: Start: 04-20-2024 CT of head without contrast Rudy Sharla INDUSTRIAL WASTE INSPECTOR-C Work Phone: Start: 04-20-2024 Bacterial nucleic acid assay Rudy Edga r INDUSTRIAL WASTE INSPECTOR-C Work Phone: Start: 04-20-2024 Blood culture Rudy Sharla INDUSTRIAL WASTE INSPECTOR-C Work Phone: Start: 04-20-2024 Urine culture Rudy Sharla INDUSTRIAL WASTE INSPECTOR-C Work Phone: Start: 04-20-2024 Rudy Sharla INDUSTRIAL WASTE INSPECTOR-C Work Phone: Start: 02-14-2024 Nucleic acid assay Rudy Sharla INDUSTRIAL WASTE INSPECTOR-C Work Phone: Start: 02-14-2024 Viral antigen assay Rudy Sharla INDUSTRIAL WASTE INSPECTOR-C Work Phone: Start: 02-13-2024 CT of abdomen and pelvis without contrast Rudy Sharla INDUSTRIAL WASTE INSPECTOR-C Work Phone: Start: 02-13-2024 Plain chest X-ray Rudy Adornogar INDUSTRIAL WASTE INSPECTOR-C Work Phone: Start: 02-13-2024 CT cervical spine without contrast Todd Boyer INDUSTRIAL WASTE INSPECTOR-C Work Phone: Start: 02-13-2024 CT of head without contrast Rudy Boyer INDUSTRIAL WASTE INSPECTOR-C Work Phone: Start: 02-13-2024 Blood culture Rudy Sharla INDUSTRIAL WASTE INSPECTOR-C Work Phone: Start: 02-13-2024 Urine culture Rudy Adornogar INDUSTRIAL WASTE INSPECTOR-C Work Phone: Start: 01-04-2024 Esophagogastroduodenoscopy Rudy Adornogar INDUSTRIAL WASTE INSPECTOR-C Work Phone: Start: 01-02-2024 Clostridium difficile detection Rudy burgessar INDUSTRIAL WASTE INSPECTOR-C Work Phone: Start: 01-02-2024 Nucleic acid assay Rudy Sharla INDUSTRIAL WASTE INSPECTOR-C Work Phone: Start: 12-31-2023 Nucleic acid assay Rudy Sharla INDUSTRIAL WASTE INSPECTOR-C Work Phone: Start: 12-31-2023 Plain chest X-ray Rudy Adornogar INDUSTRIAL WASTE INSPECTOR-C Work Phone: Start: 12-30-2023 CT of thorax, abdomen and pelvis with contrast Rudy Adornogar INDUSTRIAL WASTE INSPECTOR-C Work Phone: Start: 12-30-2023 Bacterial nucleic acid assay Rudy Adornoga r INDUSTRIAL WASTE INSPECTOR-C Work Phone: Start: 12-30-2023 Blood culture Rudy Sharla INDUSTRIAL WASTE INSPECTOR-C Work Phone: Start: 12-30-2023 Influenza virus A and B and SARS-CoV-2 (COVID-19) and Respiratory syncytial virus RNA Rudy Sharla INDUSTRIAL WASTE INSPECTOR-C Work Phone: Start: 12-30-2023 Legionella pneumophila antigen assay uRdy Sharla INDUSTRIAL WASTE INSPECTOR-C Work Phone: Start: 12-30-2023 Measurement of occult blood in stool specimen using immunoassay Rudy Sharla INDUSTRIAL WASTE INSPECTOR-C Work Phone: Start: 12-30-2023 Urine culture Rudy Boyer INDUSTRIAL WASTE INSPECTOR-C Work Phone: Start: 06-18-2023 Complete x-ray series of lumbar spine with bending views INDUSTRIAL WASTE INSPECTOR-C Rudy Boyer Work Phone: Start: 04-16-2023 Colonoscopy INDUSTRIAL WASTE INSPECTOR-C Rudyjody Boyer Work Phone: Start: 04-14-2023 Bacteria identified in Blood by Culture INDUSTRIAL WASTE INSPECTOR-C Rudy Sharla Work Phone: Start: 04-14-2023 Urine culture INDUSTRIAL WASTE INSPECTOR-C Rudy Boyer Work Phone: Start: 04-14-2023 Computed [...] count hematocrit Tawanna Gamez APR N - [employer] Work Phone: Start: 12-29-2022 Glucose quantitative blood [...] End: 12-28-2022 Blood count hematocrit Ricco Rockwell PUBLIC INFORMATION SPECIALIST - [facility] Work Phone: Start: 12-28-2022 Basic metabolic panel [...] HAWLEY Comment on above: Performed By: #### [id number] ####Medical Di silvia: VEENA RODRIGUEZ ([id number])[facility] ([facility])[address] [place] [address] Performed By: #### L [id number] ####Control Technician: VEENA RODRIGUEZ ([id number])[facility] ([facility])[address] [place] [address] Start: 12-27-2022 Blood typing serologic abo Cece [...] 12-26-2022 Bilirubin direct Wilfrid Bender APRN - [facility] Work Phone: Start: 12-26-2022 Glucose quantitative [...] HAWLEY Comment on above: Performed By: #### [id number] ####Medical Di silvia: VEENA RODRIGUEZ ([id number])[facility]OD [facility] ([facility])[address] [place] [address] Performed By: #### L [id number] ####Control Technician: VEENA RODRIGUEZ ([id number])[facility] BLOOD [facility] ([address] Start: 12-23-2022 Blood gases any combination [...] 10-12-2022 Glucose quantitative blood xcpt reagent strip Gayel Herbert MD Work Phone: Start: 10-12-2022 Glucose quantitative blood xcpt reagent strip Gayle Herbert MD Work Phone: Start: 10-12-2022 Basic metabolic panel calcium total Luis Causey MD Work Phone: Start: 10-11-2022 Glucose quantitative blood xcpt reagent strip Gayle Herbert MD Work Phone: Start: 10-11-2022 Glucose quantitative blood xcpt reagent strip Gayle Herbert MD Work Phone: Start: 10-11-2022 POCT [...] Start: 10-10-2022 Blood typing serologic abo Cece Abraahm Work Phone: Start: 10-09-2022 Glucose quantitative blood [...] 10-05-2022 Basic metabolic panel calcium total Petra iRvers MD Work Phone: Start: 10-04-2022 Glucose quantitative blood xcpt reagent strip Petra Rivers MD Work Phone: Start: 10-04-2022 Radiologic [...] Start: 08-07-2022 Plain chest X-ray Dr. Cici Calderno Work Phone: Start: 08-07-2022 CT angiography of [...] of lumbosacral spine Start: 07-27-2008 Colonoscopy Regina Oden DO Work Phone: Start: 07-27-2008 Mammography Regina Oden DO Work Phone: Plan of Treatment Date Care Activity Detail Author Start: 05-13-2034 Urine microalbumin profile DTaP,Tdap,Td Vaccine (4 - Td or Tdap) [facility] Start: 03-06-2029 DTaP/Tdap/Td Vaccines (2 - Td or Tdap) DTaP/Tdap/Td Vaccines (2 - Td or Tdap) [facility] Start: 03-06-2029 Urine microalbumin profile [facility] Start: 03-06-2029 [facility] Start: 2028 RSV Vaccine (1 - 1-dose 75+ series) RSV Vaccine (1 - 1-dose 75+ series) [facility] Start: 12-27-2025 Diabetes mellitus screening [facility] Start: 06-20-2025 BP Controlled (<130/80) BP Controlled (<130/80) [facility] Start: 10-13-2024 Influenza vaccination Influenza Vaccine (Season Ended) [facility] Start: 09-08-2024 End: 09-08-2024 Patient encounter procedure 09/08/2024 11:00 AM EDT Office Visit Endocrinology [address] [place], [place] [id number] Jeromy Lai MD [address] [place] [address] 4 wk f/u-Osteoporosis DXA scan 08/14/24 Endocrinology Comment on above: 4 wk f/u-Osteoporosis DXA scan 08/14/24 Start: 08-14-2024 End: 08-14-2024 Patient encounter procedure 08/14/2024 10:00 AM EDT Appointment [facility] [address] [place] [id number] Osteoporosis without current pathological fracture, unspecified osteoporosis type [M81.0] [facility] Comment on above: Osteoporosis without current pathologica l fracture, unspecified osteoporosis type [M81.0] Start: 08-11-2024 End: 11-10-2024 25-hydroxyvitamin D3 [Mass/volume] in Serum or Plasma VITAMIN D 25 HYDROXY Lab Routine Osteoporosis without current pathological fracture, unspecified osteoporosis type Expected: 08/11/2024, Expires: 11/10/2024 [facility] Work Phone: Comment on above: Expected: 08/11/2024, Expires: Start: 08-11-2024 End: 11-10-2024 ALK PHOS BONE SPEC ALK PHOS BONE SPEC Lab Routine Osteoporosis without current pathological fracture, unspecified osteoporosis type Expected: 08/11/2024, Expires: 11/10/2024 [facility] Comment on above: Expected: 08/11/2024, Expires: Start: 08-11-2024 End: 11-10-2024 Calcium.ionized [Moles/volume] in Blood CALCIUM, IONIZED Lab Routine Osteoporosis without current pathological fracture, unspecified osteoporosis type Expected: 08/11/2024, Expires: 11/10/2024 [facility] Comment on above: Expected: 08/11/2024, Expires: Start: 08-11-2024 End: 11-10-2024 Collagen crosslinked C-telopeptide [Mass/volume] in Serum or Plasma C TELOPEPTIDE, BETA Lab Routine Osteoporosis without current pathological fracture, unspecified osteoporosis type Expected: 08/11/2024, Expires: 11/10/2024 [facility] Comment on above: Expected: 08/11/2024, Expires: Start: 08-11-2024 End: 11-10-2024 Comprehensive metabolic 2000 panel - Serum or Plasma COMPREHENSIVE METABOLIC PANEL Lab Routine Osteoporosis without current pathological fracture, unspecified osteoporosis type Expected: 08/11/2024, Expires: 11/10/2024 [facility] Comment on above: Expected: 08/11/2024, Expires: Start: 08-11-2024 End: 11-10-2024 Magnesium [Mass/volume] in Serum or Plasma MAGNESIUM Lab Routine Osteoporosis without current pathological fracture, unspecified osteoporosis type Expected: 08/11/2024, Expires: 11/10/2024 [facility] Comment on above: Expected: 08/11/2024, Expires: Start: 08-11-2024 End: 11-10-2024 Parathyrin.intact [Mass/volume] in Serum or Plasma PTH INTACT Lab Routine Osteoporosis without current pathological fracture, unspecified osteoporosis type Expected: 08/11/2024, Expires: 11/10/2024 [facility] Comment on above: Expected: 08/11/2024, Expires: Start: 08-11-2024 End: 11-10-2024 Phosphate [Mass/volume] in Serum or Plasma PHOSPHORUS INORGANIC Lab Routine Osteoporosis without current pathological fracture, unspecified osteoporosis type Expected: 08/11/2024, Expires: 11/10/2024 [facility] Comment on above: Expected: 08/11/2024, Expires: Start: 08-11-2024 End: 08-11-2024 Patient encounter procedure 08/11/2024 10:00 AM EDT Office Visit Endocrinology [address] [place], [place] [id number] Jeromy Lai MD [address] [place], [place] [id number] Osteoporosis without current pathological fracture, unspecified osteoporosis typ Endocrinology Comment on above: Osteoporosis without current pathologica l fracture, unspecified osteoporosis typ Start: 06-20-2024 End: 09-19-2024 FLOW CYTOMETRY FOR LEUKEMIA/LYMPHOMA (FCLL) [facility] Comment on above: Expected: 06/20/2024, Expires: Start: 06-20-2024 End: 09-19-2024 Immunodeficiency panel - Blood by Flow cytometry (FC) [facility] Comment on above: Expected: 06/20/2024, Expires: Start: 06-20-2024 End: 09-19-2024 MONOCLONAL PROT UR W/INTERP [facility] Work Phone: Comment on above: Expected: 06/20/2024, Expires: Start: 06-20-2024 End: 09-19-2024 MONOCLONAL PROTEIN, SERUM (BLOOD) [facility] Comment on above: Expected: 06/20/2024, Expires: Start: 06-20-2024 End: 09-19-2024 PROTEIN ELECT RND UR W/[facility] Comment on above: Expected: 06/20/2024, Expires: Start: 06-20-2024 End: 09-19-2024 PROTEIN ELECTROPHORESIS SERUM W/INTERP [facility] Comment on above: Expected: 06/20/2024, Expires: Start: 06-20-2024 End: 06-20-2024 ambulatory 06/20/2024 11:40 AM EDT Visit (SP) Office Hematology/Oncology [address] [place] [address] Regina Oden DO [address] [place] [address] OV/PER TE 06/10 Hematology/Oncology Comment on above: OV/PER TE 06/10 Start: 05-17-2024 Patient discharge [facility] Start: 05-16-2024 [facility] Start: 05-16-2024 [facility] Start: 05-15-2024 Referral to adult education teacher [facility] Start: 05-14-2024 [facility] Start: 05-14-2024 Admission procedure [facility] Start: 05-13-2024 Following clinical pathway protocol [facility] Start: 05-13-2024 Assessment of risk of venous thromboembolism [facility] Start: 05-13-2024 Care regimes management [facility] Start: 05-13-2024 Fall prevention [facility] Start: 05-13-2024 Inhalation therapy procedure [facility] Start: 05-13-2024 Insertion of catheter into peripheral vein [facility] Start: 05-13-2024 Introduction of urinary catheter [facility] Start: 05-13-2024 Measuring intake and output [facility] Start: 05-13-2024 Notification of physician [facility] Start: 05-13-2024 Oxygen therapy [facility] Start: 05-13-2024 Providing care according to standard [facility] Start: 05-13-2024 Provision of activity privileges [facility] Start: 05-13-2024 Referral to occupational therapist [facility] Start: 05-13-2024 Referral to service [facility] Start: 05-13-2024 End: 05-13-2024 [facility] Start: 05-13-2024 Dual pressure spontaneous ventilation support [facility] Start: 05-13-2024 Verification routine [facility] Start: 05-13-2024 Admission procedure [facility] Start: 05-13-2024 Hospital admission, emergency, from emergency room, medical nature [facility] Start: 05-13-2024 End: 05-14-2024 [facility] Start: 05-13-2024 Consultation [facility] Start: 04-24-2024 Patient discharge [facility] Start: 04-21-2024 [facility] Start: 04-21-2024 Speech therapy assessment [facility] Start: 04-21-2024 Care planning and problem solving actions [facility] Start: 04-20-2024 Following clinical pathway protocol [facility] Start: 04-20-2024 Aspiration precautions [facility] Start: 04-20-2024 Assessment of risk of venous thromboembolism [facility] Start: 04-20-2024 Care regimes management [facility] Start: 04-20-2024 Elevation of head of bed [facility] Start: 04-20-2024 Fall prevention [facility] Start: 04-20-2024 Inhalation therapy procedure [facility] Start: 04-20-2024 Insertion of catheter into peripheral vein [facility] Start: 04-20-2024 Introduction of urinary catheter [facility] Start: 04-20-2024 Measuring intake and output [facility] Start: 04-20-2024 Notification of physician [facility] Start: 04-20-2024 Patient referral to dietitian [facility] Start: 04-20-2024 Providing care according to standard [facility] Start: 04-20-2024 Provision of activity privileges [facility] Start: 04-20-2024 Referral to occupational therapist [facility] Start: 04-20-2024 Referral to service [facility] Start: 04-20-2024 Vital signs measurements [facility] Start: 04-20-2024 End: 04-20-2024 [facility] Start: 04-20-2024 Dual pressure spontaneous ventilation support [facility] Start: 04-20-2024 Gas panel - Arterial blood [facility] Start: 04-20-2024 Serum inorganic phosphate measurement [facility] Start: 04-20-2024 Verification routine [facility] Start: 04-20-2024 Admission procedure [facility] Start: 04-20-2024 Hospital admission, emergency, from emergency room, medical nature [facility] Start: 04-20-2024 [facility] Start: 04-20-2024 [facility] Start: 04-20-2024 End: 04-20-2024 [facility] Start: 04-20-2024 Blood culture [facility] Start: 04-20-2024 Patient referral to dietitian [facility] Start: 02-17-2024 [facility] Start: 02-17-2024 Patient discharge [facility] Start: 02-16-2024 Speech therapy assessment [facility] Start: 02-15-2024 Speech therapy assessment [facility] Start: 02-14-2024 [facility] Start: 02-14-2024 Care planning and problem solving actions [facility] Start: 02-13-2024 End: 02-14-2024 Following clinical pathway protocol [facility] Start: 02-13-2024 Assessment of risk of venous thromboembolism [facility] Start: 02-13-2024 Care regimes management [facility] Start: 02-13-2024 Catheterization of vein [facility] Start: 02-13-2024 Elevation of head of bed [facility] Start: 02-13-2024 Incentive spirometry [facility] Start: 02-13-2024 Inhalation therapy procedure [facility] Start: 02-13-2024 Insertion of catheter into peripheral vein [facility] Start: 02-13-2024 Measuring intake and output [facility] Start: 02-13-2024 Notification of physician [facility] Start: 02-13-2024 Oxygen therapy [facility] Start: 02-13-2024 End: 02-14-2024 Patient referral to dietitian [facility] Start: 02-13-2024 Providing care according to standard [facility] Start: 02-13-2024 Referral to occupational therapist [facility] Start: 02-13-2024 Referral to service [facility] Start: 02-13-2024 Removal of urinary catheter [facility] Start: 02-13-2024 Vital signs measurements [facility] Start: 02-13-2024 End: 02-13-2024 [facility] Start: 02-13-2024 Admission procedure [facility] Start: 02-13-2024 Advance Directive Discussion Advance Directive Discussion [facility] Start: 02-13-2024 Medicare Advantage Annual Wellness Visit Medicare Advantage Annual Wellness Visit [facility] Start: 01-05-2024 Patient discharge [facility] Start: 01-03-2024 Removal of urinary catheter [facility] Start: 01-01-2024 Care planning and problem solving actions [facility] Start: 01-01-2024 Inhalation therapy procedure [facility] Start: 12-31-2023 [facility] Start: 12-30-2023 End: 12-31-2023 [facility] Start: 12-30-2023 Application of intermittent pneumatic compression device [facility] Start: 12-30-2023 Following clinical pathway protocol [facility] Start: 12-30-2023 Aspiration precautions [facility] Start: 12-30-2023 Assessment of risk of venous thromboembolism [facility] Start: 12-30-2023 Care regimes management [facility] Start: 12-30-2023 Elevation of head of bed [facility] Start: 12-30-2023 Fall prevention [facility] Start: 12-30-2023 Insertion of catheter into peripheral vein [facility] Start: 12-30-2023 Introduction of urinary catheter [facility] Start: 12-30-2023 Measuring intake and output [facility] Start: 12-30-2023 Methicillin resistant Staphylococcus aureus screening test [facility] Start: 12-30-2023 Notification of physician [facility] Start: 12-30-2023 Patient referral to dietitian [facility] Start: 12-30-2023 Providing care according to standard [facility] Start: 12-30-2023 Provision of activity privileges [facility] Start: 12-30-2023 Referral to machinist helper [facility] Start: 12-30-2023 Referral to gastroenterology service [facility] Start: 12-30-2023 Referral to occupational therapist [facility] Start: 12-30-2023 Referral to service [facility] Start: 12-30-2023 Tobacco use cessation education [facility] Start: 12-30-2023 Vital signs measurements [facility] Start: 12-30-2023 Admission procedure [facility] Start: 12-30-2023 Dual pressure spontaneous ventilation support [facility] Start: 12-30-2023 Patient referral to dietitian [facility] Start: 12-28-2023 Hemoglobin A1c measurement Diabetes: Hemoglobin A1C [facility] Start: 10-14-2023 Covid-19 Vaccine () Covid-19 Vaccine () [facility] Start: 10-14-2023 Influenza vaccination [facility] Start: 10-05-2023 Diabetic foot examination [facility] Start: 10-05-2023 Hemoglobin A1c measurement [facility] Start: 09-05-2023 BP CONTROLLED (<130/80) BP CONTROLLED (<130/80) [facility] Start: 06-27-2023 Hemoglobin A1c measurement HbA1C [facility] Start: 05-22-2023 End: 05-22-2023 Patient encounter procedure 05/22/2023 3:20 PM EDT Office Visit [facility] [address] [place] [phone] Nicola Adhikari MD [address] [place] [address] [facility] Start: 05-22-2023 End: 05-20-2024 XR Femur - right 2 Views XR femur right 2+ views Imaging Routine Closed displaced intertrochanteric fracture of right femur with routine healing, subsequent encounter Expected: 05/22/2023, Expires: 05/20/2024 [facility] Work Phone: Comment on above: Expected: 05/22/2023, Expires: Start: 04-18-2023 Patient discharge [facility] Start: 04-17-2023 Care planning and problem solving actions [facility] Start: 04-15-2023 End: 04-15-2023 [facility] Start: 04-15-2023 Triacylglycerol lipase measurement [facility] Start: 04-14-2023 Following clinical pathway protocol [facility] Start: 04-14-2023 Application of intermittent pneumatic compression device [facility] Start: 04-14-2023 Aspiration precautions [facility] Start: 04-14-2023 Assessment of risk of venous thromboembolism [facility] Start: 04-14-2023 Care regimes management [facility] Start: 04-14-2023 Insertion of catheter into peripheral vein [facility] Start: 04-14-2023 Measuring intake and output [facility] Start: 04-14-2023 Notification of physician [facility] Start: 04-14-2023 Providing care according to standard [facility] Start: 04-14-2023 Provision of activity privileges [facility] Start: 04-14-2023 Referral to gastroenterology service [facility] Start: 04-14-2023 Referral to occupational therapist [facility] Start: 04-14-2023 Referral to service [facility] Start: 04-14-2023 [facility] Start: 04-14-2023 End: 04-14-2023 Blood culture [facility] Start: 04-14-2023 Verification routine [facility] Start: 04-14-2023 Admission procedure [facility] Start: 04-14-2023 Hospital admission, emergency, from emergency room, medical nature [facility] Start: 04-14-2023 End: 04-14-2023 [facility] Start: 04-14-2023 Patient referral to dietitian [facility] Start: 04-06-2023 Hemoglobin A1c/Hemoglobin.total in Blood HBA1C [facility] Start: 04-03-2023 End: 04-02-2024 XR Femur - right 2 Views XR femur right 2+ views Imaging Routine Closed displaced intertrochanteric fracture of right femur with routine healing, subsequent encounter Expected: 04/03/2023, Expires: 04/02/2024 [employer] Work Phone: Comment on above: Expected: 04/03/2023, Expires: Start: 04-03-2023 End: 04-03-2023 Patient encounter procedure 04/03/2023 1:30 PM EST Office Visit [facility] [address] [place] [address] [place] [phone] Nicola Adhikari MD [address] [place], [place] [id number] [facility] Start: 02-12-2023 Advance Directive Discussion Advance Directive Discussion [facility] Start: 02-12-2023 Medicare Advantage Annual Wellness Visit Medicare Advantage Annual Wellness Visit [facility] Start: 01-01-2023 End: 01-01-2023 Patient encounter procedure 01/01/2023 11:30 AM EST Office Visit [facility] [address] [place] [phone] Phyllis Guevara PA-C [address] [place] [address] [facility] Start: 12-29-2022 End: 12-30-2023 XR Hip - left 3 Views XR hip left 2 or 3 views Imaging Routine S/P total left hip arthroplasty Expected: 12/29/2022, Expires: 12/30/2023 [facility] Work Phone: Comment on above: Expected: 12/29/2022, Expires: Start: 12-25-2022 End: 12-25-2022 Patient encounter procedure 12/25/2022 11:00 AM EST Office Visit [facility] [address] [place] [phone] Phyllis Guevara PA-C [address] [place] [address] [facility] Start: 12-23-2022 [facility] Start: 12-23-2022 [facility] Start: 11-06-2022 End: 01-06-2023 FLOW CYTOMETRY FOR LEUKEMIA/LYMPHOMA (FCLL) FLOW CYTOMETRY FOR LEUKEMIA/LYMPHOMA (FCLL) Lab Routine Lymphocytosis Expected: 11/06/2022, Expires: 01/06/2023 [facility] Work Phone: Comment on above: Expected: 11/06/2022, Expires: 3 Start: 11-06-2022 End: 11-06-2022 ambulatory [facility] Start: 11-06-2022 End: 11-06-2022 Patient encounter procedure 11/06/2022 1:30 PM EDT Office Visit [facility] [address] [place] [phone] Phyllis Guevara PA-C [address] [place] [address] [facility] Start: 10-13-2022 COVID-19 Vaccine ( season) COVID-19 Vaccine () [facility] Start: 10-13-2022 Influenza vaccination [facility] Start: 10-13-2022 [facility] Start: 10-03-2022 End: 12-03-2022 CBC W Ordered Manual Differential panel - Blood PATHOLOGIST INTERPRETATION WITH CBC AND DIFF Lab Routine 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 Expected: 10/03/2022, Expires: 12/03/2022 [facility] Work Phone: Comment on above: Expected: 10/03/2022, Expires: 3 Start: 10-03-2022 End: 12-03-2022 FLOW CYTOMETRY FOR LEUKEMIA/LYMPHOMA (FCLL) FLOW CYTOMETRY FOR LEUKEMIA/LYMPHOMA (FCLL) Lab Routine 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 Expected: 10/03/2022, Expires: 12/03/2022 [facility] Work Phone: Comment on above: Expected: 10/03/2022, Expires: 3 Start: 10-03-2022 End: 12-03-2022 Immunodeficiency panel - Blood by Flow cytometry (FC) IMMUNODEFICIENCY CDC Lab Routine 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 Expected: 10/03/2022, Expires: 12/03/2022 [facility] Work Phone: Comment on above: Expected: 10/03/2022, Expires: 3 Start: 10-03-2022 End: 12-03-2022 T CELL PANEL (GAMMA, BETA) T CELL PANEL (GAMMA, BETA) Lab Routine 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 Expected: 10/03/2022, Expires: 12/03/2022 [facility] Work Phone: Comment on above: Expected: 10/03/2022, Expires: 3 Start: 09-18-2022 Diagnostic bone marrow biopsies & aspirations DX BONE MARROW BX & ASPIR [facility] Start: 09-18-2022 Procedure [facility] Start: 09-18-2022 Catheterization of vein [facility] Start: 09-18-2022 Patient discharge [facility] Start: 09-18-2022 Vital signs measurements [facility] Start: 09-18-2022 Oxygen therapy [facility] Start: 09-18-2022 Following clinical pathway protocol [facility] Start: 08-16-2022 Patient discharge [facility] Start: 08-16-2022 Radiologic examination, osseous survey, complete Bone Survey Comp(Axial&Append) [facility] Start: 08-16-2022 XR Bones Survey Views [facility] Start: 08-16-2022 MRI of thoracic spine with contrast [facility] Start: 08-16-2022 MRI of cervical spine with contrast Spine Cervical W/WO Contrast [facility] Start: 08-16-2022 MRI of lumbar spine with contrast Spine Lumbar W/WO Contrast [facility] Start: 08-16-2022 Urine protein electrophoresis [facility] Start: 08-16-2022 Serum immunofixation [facility] Start: 08-15-2022 End: 08-15-2022 Consultation [facility] Start: 08-15-2022 Physiotherapy of chest [facility] Start: 08-14-2022 Bacterial culture Body Fluid Culture [facility] Start: 08-14-2022 Consultation [facility] Start: 08-14-2022 Vital signs measurements [facility] Start: 08-14-2022 [facility] Start: 08-10-2022 Administration of blood product [facility] Start: 08-07-2022 Cardiac monitoring [facility] Start: 08-07-2022 Catheterization of vein [facility] Start: 08-07-2022 Elevation of head of bed [facility] Start: 08-07-2022 Exercises [facility] Start: 08-07-2022 Implementation of planned interventions [facility] Start: 08-07-2022 Notification of physician [facility] Start: 08-07-2022 Oxygen therapy [facility] Start: 08-07-2022 Referral to occupational therapist [facility] Start: 08-07-2022 Referral to service [facility] Start: 08-07-2022 Speech therapy assessment [facility] Start: 08-07-2022 Tobacco use cessation education [facility] Start: 08-07-2022 End: 08-07-2022 [facility] Start: 08-07-2022 End: 08-07-2022 Administration of blood product [facility] Start: 08-07-2022 [facility] Start: 08-06-2022 End: 08-06-2022 Measuring intake and output [facility] Start: 08-06-2022 Care regimes management [facility] Start: 08-06-2022 Notification of physician [facility] Start: 08-06-2022 [facility] Start: 08-06-2022 End: 08-06-2022 [facility] Start: 08-06-2022 Ambulation therapy management [facility] Start: 08-06-2022 Application of device [facility] Start: 08-06-2022 Exercises [facility] Start: 08-06-2022 Following clinical pathway protocol [facility] Start: 08-06-2022 Introduction of urinary catheter [facility] Start: 08-06-2022 Neurovascular assessment [facility] Start: 08-06-2022 Patient education [facility] Start: 08-06-2022 Provision of activity privileges [facility] Start: 08-06-2022 Referral to occupational therapist [facility] Start: 08-06-2022 Referral to service [facility] Start: 08-06-2022 Vital signs measurements [facility] Start: 08-06-2022 Wound care [facility] Start: 08-06-2022 End: 08-06-2022 Measuring intake and output [facility] Start: 08-06-2022 End: 08-06-2022 Measuring intake and output [facility] Start: 08-05-2022 Application of intermittent pneumatic compression device [facility] Start: 08-05-2022 Following clinical pathway protocol [facility] Start: 08-05-2022 Assessment of risk of venous thromboembolism [facility] [facility] Start: 08-05-2022 Catheterization of vein [facility] Start: 08-05-2022 Insertion of catheter into peripheral vein [facility] Start: 08-05-2022 Providing care according to standard [facility] Start: 08-05-2022 Recommendation to continue with treatment [facility] Start: 08-05-2022 Referral to service [facility] Start: 08-05-2022 Vitamin D, 25-hydroxy measurement [facility] Start: 08-05-2022 End: 08-05-2022 Measuring intake and output [facility] Start: 08-05-2022 End: 08-05-2022 [facility] Start: 08-05-2022 End: 08-05-2022 Application of ice collar, cap or bag [facility] Start: 08-05-2022 End: 08-05-2022 Bedrest [facility] Start: 08-05-2022 End: 08-05-2022 Neurovascular assessment [facility] Start: 08-05-2022 End: 08-05-2022 Skin care [facility] Start: 08-05-2022 Verification routine [facility] Start: 08-05-2022 Admission procedure [facility] Start: 08-05-2022 [facility] Start: 08-05-2022 Consultation [facility] Start: 08-05-2022 [facility] Start: 07-07-2022 Patient referral [facility] Work Phone: Start: 02-12-2022 ADVANCE DIRECTIVE DISCUSSION ADVANCE DIRECTIVE DISCUSSION [facility] Start: 12-12-2019 Pneumococcal Vaccine: 50+ (3 of 3 - PCV20 or PCV21) Pneumococcal Vaccine: 50+ (3 of 3 - PCV20 or PCV21) [facility] Start: 2018 BONE DENSITY BONE DENSITY [facility] Start: 2018 Bone Density Screening Bone Density Screening [facility] Start: 2018 Pneumococcal Vaccine: 65+ (3 of 3 - PPSV23 or PCV20) Pneumococcal Vaccine: 65+ (3 of 3 - PPSV23 or PCV20) [facility] Start: 2018 Pneumococcal Vaccine: 65+ Years (3 - PPSV23 if available, else PCV20) Pneumococcal Vaccine: 65+ Years (3 - PPSV23 if available, else PCV20) [facility] Start: 2018 Pneumococcal Vaccine: 65+ Years (3 - PPSV23 or PCV20) Pneumococcal Vaccine: 65+ Years (3 - PPSV23 or PCV20) [facility] Start: 2018 Pneumococcal Vaccine: 65+ Years (3 of 3 - PPSV23 or PCV20) Pneumococcal Vaccine: 65+ Years (3 of 3 - PPSV23 or PCV20) [facility] Start: 2018 Screening for osteoporosis Bone Density Screening [facility] Start: 2018 [facility] Start: 10-02-2018 Hepatitis B surface antibody level LDL CHOLESTEROL [facility] Start: 2013 Hepatitis B Vaccine (1 of 3 - Risk 3-dose series) Hepatitis B Vaccine (1 of 3 - Risk 3-dose series) [facility] Start: 2013 RSV Immunization aged 60 or older (1 - 1-dose 60+ series) RSV Immunization aged 60 or older (1 - 1-dose 60+ series) [facility] Start: 2013 RSV Vaccine (1 - 1-dose 60+ series) RSV Vaccine (1 - 1-dose 60+ series) [facility] Start: 2013 [facility] Start: 01-14-2013 Glaucoma screening Dilated Retinal Exam [facility] Start: 01-14-2013 Hepatitis C antibody, confirmatory test DILATED RETINAL EXAM [facility] Start: 11-02-2012 3 comp foot exam completed DIABETIC FOOT EXAM [facility] Start: 11-02-2012 Diabetic foot examination Diabetic Foot Exam [facility] Start: 11-02-2012 Hepatitis B screening URINE ALBUMIN:CREATININE RATIO [facility] Start: 09-08-2012 Hemoglobin A1c/Hemoglobin.total in Blood HBA1C [facility] Start: 07-27-2009 Colonoscopy COLONOSCOPY [facility] Start: 07-27-2009 COLORECTAL CANCER SCREENING COLORECTAL CANCER SCREENING [facility] Start: 07-27-2009 Mammography [facility] Start: 07-27-2009 Screening for malignant neoplasm of breast Mammogram Screening [facility] Start: 07-27-2009 Screening for malignant neoplasm of colon [facility] Start: 02-20-2008 Pneumococcal Vaccine: 65+ (2 - PCV) Pneumococcal Vaccine: 65+ (2 - PCV) [facility] Start: 02-20-2008 PNEUMOCOCCAL: 65+ (2 - PCV) PNEUMOCOCCAL: 65+ (2 - PCV) [facility] Start: 10-25-2003 SHINGRIX VACCINE (1 of 2) SHINGRIX VACCINE (1 of 2) [facility] Start: 10-25-2003 [facility] Start: 1998 COLOGUARD (FIT-DNA) COLOGUARD (FIT-DNA) [facility] Start: [address] COLONOGRAPHY [facility] Start: 1998 FECAL OCCULT BLOOD FECAL OCCULT BLOOD [facility] Start: 1998 Screening for malignant neoplasm of colon [facility] Start: 1998 SIGMOIDOSCOPY SIGMOIDOSCOPY [facility] Start: 1993 Screening for malignant neoplasm of breast [facility] Start: 1972 Urine microalbumin profile [facility] Start: 1972 [facility] Start: 10-25-1971 ANNUAL PCP TEAM CHRONIC DISEASE VISIT ANNUAL PCP TEAM CHRONIC DISEASE VISIT [facility] Start: 10-25-1971 BP CONTROLLED (<130/80) BP CONTROLLED (<130/80) [facility] Start: 10-25-1971 HEPATITIS C SCREENING HEPATITIS C SCREENING [facility] Start: 10-25-1971 Hepatitis C screening [facility] Start: 1965 Depression Screening Depression Screening [facility] Start: 1965 Depresssion Monitoring Depresssion Monitoring [facility] Start: 1965 [facility] Start: 10-25-1963 Glaucoma screening [facility] Start: 10-25-1963 Preventive dental service [facility] Start: 04-23-1954 COVID-19 VACCINE (#1) COVID-19 VACCINE (#1) [facility] Start: 04-23-1954 [facility] Start: 1953 Lipid panel [facility] Start: 1955 Medicare Advantage Annual Wellness Visit (AWV) Medicare Advantage Annual Wellness Visit (AWV) [facility] Start: 1955 Screening for malignant neoplasm of colon [facility] Start: 1955 Screening for osteoporosis [facility] Start: 1953 [facility] Aerobic and Anaerobi c Culture with Stain [facility] [employer] [facility] Work Phone: Aerobic and Anaerobi c Culture with Stain [facility] Albumin [Moles/volum e] in Serum or Plasma [facility] Albumin/Globulin ratio [facility] Bacteria identified in Unspecified specimen by Anaerobe culture [facility] Bacteria identified in Unspecified specimen by Anaerobe culture [facility] Bacteria identified in Urine by Culture [facility] End: 09-10-2025 BD DXA TRABECULAR BONE SCORE (TBS) BD DXA TRABECULAR BONE SCORE (TBS) Radiology Routine Osteoporosis without current pathological fracture, unspecified osteoporosis type 1 Occurrences starting 08/11/2024 until 09/10/2025 [facility] Comment on above: 1 Occurrences starting 08/11/2024 until 09/10/2025 Cancer Ag 125 [Units/volume] in Serum or Plasma [facility] Cancer Ag 19-9 [Units/volume] in Serum or Plasma [facility] Carcinoembryonic Ag [Mass/volume] in Serum or Plasma [facility] CT Abdomen and Pelvi s W contrast IV [facility] Cytology report of B troy fluid Cyto stain [facility] End: 09-10-2025 DXA Skeletal system.axial Views for bone density and vertebral fracture DXA-AXIAL SKELETON WITH VFA Radiology Routine Osteoporosis without current pathological fracture, unspecified osteoporosis type 1 Occurrences starting 08/11/2024 until 09/10/2025 [facility] Comment on above: 1 Occurrences starting 08/11/2024 until 09/10/2025 Electrophoresis: [id number] [facility] Electrophoresis: [id number] [facility] Electrophoresis: hollie ma globulin [facility] Fluid sample globuli n level [facility] Globulin measurement [facility] Globulin measurement [facility] IgA [Mass/volume] in Serum or Plasma [facility] IgG [Mass/volume] in Serum or Plasma [facility] IgM [Mass/volume] in Serum or Plasma [facility] Lactic acid measurement [facility] ter [facility] Magnesium measurement [facility] Measurement of monoclonal protein concentration [facility] Microscopic observat ion [Identifier] in Unspecified specimen by Acid fast stain [facility] OUTSIDE PROCEDURE SCAN OUTSIDE P ROCEDURE SCAN Procedures Ordered: 10/03/2022 [facility] Comment on above: Ordered: 10/03/2022 Patient Education [facility] Work Phone: Patient referral [facility] Work Phone: Protein [Mass/volume ] in Urine [facility] Protein electrophore sis panel - Serum or Plasma [facility] Protein measurement, urine [facility] Serum protein electrophoresis [facility] Tissue exam [facility] Urine albumin measurement [facility] Urine culture [facility] End: 12-23-2022 US TRAUMA FAST POCUS [facility] Immunizations Immunization Date Immunization Notes Care Provider [facility] 05-13-2024 tetanus toxoid, redu lilibeth diphtheria toxoid, and acellular pertussis vaccine, adsorbed Rudy CARLISLE Work Phone: [facility] 02-09-[address] Cici Calderon Work Phone: [facility] 08-25-[address] Cici Calderon Work Phone: [facility] 03-06-2019 tetanus toxoid, redu lilibeth diphtheria toxoid, and acellular pertussis vaccine, adsorbed [facility] 12-31-2018 Influenza virus vaccine [facility] 12-31-2018 influenza, seasonal, injectable, preservative free Phyllis Guevara PA-C Work Phone: [facility] 12-31-2018 influenza virus vacc ine, unspecified formulation Cici Martinez MD Work Phone: [facility] 12-11-2014 pneumococcal conjuga te vaccine, [address] Cici Calderon Work Phone: [facility] 11-18-2010 influenza virus vacc ine, unspecified formulation Regina Oden DO Work Phone: [facility] Work Phone: 11-26-2009 influenza virus vacc ine, unspecified formulation Regina Oden DO Work Phone: [facility] Work Phone: 02-19-2007 pneumococcal polysaccharide vaccine, 23 valent Regina Oden DO Work Phone: [facility] Work Phone: 01-29-2007 influenza virus vacc jennifer, unspecified formulation Regina Oden DO Work Phone: [facility] Work Phone: NEGATED: Highlighted row has not occurred!12-24-2022 Esteban Hawley MD Work Phone: [facility] Comment on above: Deferred: Contraindi cation Payers Date Payer Category Payer Unknown [id number] 2023 Self-pay [id number] 2023 Medicare (Managed Care) 1.2. [id number] 315 2023 Unknown [id number] 2022 Medicare [id number] 2022 Private Health Insurance [id number] 2020 Medicaid [id number] 2020 Unknown [id number] 2019 Medicaid [id number] 2006 Medicare [id number] Private Health Insurance Unknown [id number] 2.16.8 40.1.393468.3.579.2.462 Unknown [id number] 2.16.8 40.1.000895.3.579.2.462 Unknown [id number] 2.16.8 40.1.826975.3.579.2.462 Unknown [id number] 2.16.8 40.1.850119.3.579.2.462 Unknown [id number] 2.16.8 40.1.311144.3.579.2.462 Unknown [id number] 2.16.8 40.1.177528.3.579.2.462 Unknown [id number] 2.16.8 40.1.224983.3.579.2.462 Unknown [id number] 2.16.8 40.1.071070.3.579.2.462 Unknown [id number] 2.16.8 40.1.101774.3.579.2.462 Unknown [id number] 2.16.8 40.1.888637.3.579.2.462 Unknown [id number] 2.16.8 40.1.366330.3.579.2.462 Unknown [id number] 2.16.8 40.1.577297.3.579.2.462 Unknown [id number] 2.16.8 40.1.144180.3.579.2.462 Unknown [id number] 2.16.8 40.1.749059.3.579.2.462 Unknown [id number] 2.16.8 40.1.550014.3.579.2.462 Unknown [id number] 2.16.8 40.1.093773.3.579.2.462 Unknown [id number] 2.16.8 40.1.753620.3.579.2.462 Unknown [id number] 2.16.8 40.1.998189.3.579.2.462 Unknown [id number] 2.16.8 40.1.219205.3.579.2.462 Unknown [id number] 2.16.8 40.1.151744.3.579.2.462 Unknown [id number] 2.16.8 40.1.492576.3.579.2.462 Unknown [id number] 2.16.8 40.1.495959.3.579.2.462 Unknown [id number] 2.16.8 40.1.621803.3.579.2.462 Unknown [id number] 2.16.8 40.1.313784.3.579.2.462 Unknown [id number] 2.16.8 40.1.786188.3.579.2.462 Unknown [id number] 2.16.8 40.1.110973.3.579.2.462 Unknown [id number] 2.16.8 40.1.168804.3.579.2.462 Unknown [id number] 2.16.8 40.1.518793.3.579.2.462 Unknown [id number] 2.16.8 40.1.941768.3.579.2.462 Unknown [id number] 2.16.8 40.1.647213.3.579.2.462 Unknown [id number] 2.16.8 40.1.829249.3.579.2.462 Unknown [id number] 2.16.8 40.1.022735.3.579.2.462 Unknown [id number] 2.16.8 40.1.865330.3.579.2.462 Unknown [id number] 2.16.8 40.1.285360.3.579.2.462 Unknown [id number] 2.16.8 40.1.824998.3.579.2.462 Unknown [id number] 2.16.8 40.1.159700.3.579.2.462 Unknown [id number] 2.16.8 40.1.534881.3.579.2.462 Unknown [id number] 2.16.8 40.1.002599.3.579.2.462 Unknown [id number] 2.16.8 40.1.545469.3.579.2.462 Unknown [id number] 2.16.8 40.1.103866.3.579.2.462 Unknown [id number] 2.16.8 40.1.773715.3.579.2.462 Unknown [id number] 2.16.8 40.1.033641.3.579.2.462 Unknown [id number] 2.16.8 40.1.397656.3.579.2.462 Unknown [id number] 2.16.8 40.1.924270.3.579.2.462 Unknown [id number] 2.16.8 40.1.898059.3.579.2.462 Unknown [id number] 2.16.8 40.1.911465.3.579.2.462 Unknown [id number] 2.16.8 40.1.799592.3.579.2.462 Unknown [id number] 2.16.8 40.1.669517.3.579.2.462 Unknown [id number] 2.16.8 40.1.464293.3.579.2.462 Unknown [id number] 2.16.8 40.1.566130.3.579.2.462 Unknown [id number] 2.16.8 40.1.570094.3.579.2.462 Unknown [id number] 2.16.8 40.1.341537.3.579.2.462 Unknown [id number] 2.16.8 40.1.259229.3.579.2.462 Unknown [id number] 2.16.8 40.1.841131.3.579.2.462 Social History Date Type Detail Facility Start: 12-18-2019 End: 04-14-2023 Tobacco smoking status NHIS Unknown if ever smoked [facility] Start: 02-12-2019 None [facility] Start: 03-06-2019 Spouse/ Signif icant Other [facility] Start: 02-12-2019 Cigarettes [facility] Start: 1955 Sex Assigned At Female [facility] Start: 11-03-2011 End: 08-11-2024 Tobacco smoking status NHIS Ex-smoker [facility] Work Phone: Start: 07-05-1973 End: 07-26-2022 History of tobacco use Current smoker [facility] Work Phone: Start: 07-05-1973 End: 07-26-2022 History of tobacco use Cigarette Smoker [facility] Work Phone: Start: 11-03-2011 End: 09-04-2022 Cigarettes smoked current (pack per day) - Reported 0.5 [facility] Start: 11-03-2011 End: 08-11-2024 Tobacco use and exposure Smokeless tobacco non-user [facility] Work Phone: Start: 12-02-2018 End: 08-11-2024 Alcohol intake Current non-drinker of alcohol (finding) [facility] Start: 1955 Sex Assigned At Not on file [facility] Start: 11-12-2017 End: 09-04-2022 Gender identity Not on file [facility] Adult Depression Screening Assessment 4 [facility] Start: 10-03-2022 Tobacco smoking status NHIS Never smoked tobacco [facility] Within the last year , have you been afraid of your partner or ex-partner? No [facility] How often to you hav e a drink containing alcohol? Never [facility] Start: 09-23-2022 End: 10-03-2022 Exposure to SARS-CoV-2 (event) Not sure [facility] Start: 04-20-2024 End: 05-17-2024 Sex Female (finding) [facility] NEGATED: Highlighted row [facility] NEGATED: Highlighted row [facility] Medical Equipment Procedure Code Equipment Code Equipment Origin al Text Equipment Identifier Dates ORIF, hip, using Gamma nail ([id number]) ()[id number] FDA Start: 08-06-2022 ORIF, hip, using Gamma nail ([id number]) ()[id number] FDA Start: 08-06-2022 ORIF, hip, using Gamma nail ([id number]) ()[id number] FDA Start: 08-06-2022 Cement Kyphx Hv- R 30% Barium Sulfate Pmma Bone Powder Mix Body Dispense - [id number] Start: 04-16-2018 [id number] Start: 10-10-2022 [id number] Start: 10-10-2022 [id number] Start: 10-10-2022 [id number] Start: 10-10-2022 [id number] Start: 10-10-2022 53200_imp Start: 10-10-2022 ()[id number], [id number] FDA Start: 12-27-2022 ()[id number], [id number]_imp FDA Start: 12-27-2022 [id number] Start: 12-23-2022 50mm Od Redapt Modular Shell [id number] Start: 10-10-2022 Oxinium Dh Dual Mobility Liner [id number]_imp Start: 10-10-2022 Stem Distal [place] s Spl [id number] - [id number] Start: 10-10-2022 Body Prox Josh C Std 60mm - [id number] Start: 10-10-2022 Redapt 25mm Locking Screw [id number] Start: 10-10-2022 Redapt 20mm Locking Screw [id number] Start: 10-10-2022 Screw Acet 6.5x25mm Sphere - [id number] Start: 10-10-2022 Screw Acet 6.5x40mm Sphere - [id number] Start: 10-10-2022 Kit Scr 90mm 4.5 mm Intertan - [id number] ()[id number], [id number] FDA Start: 12-27-2022 Screw Bn 5mm 37.5mm Trgn Fem - [id number] ()[id number] 968, [id number] FDA Start: 12-27-2022 Goals Date Patient Goal Desired Activity /State Functional Status Date Assessment Result Facility 05-17-2024 Functional status Ambulates [facility] Work Phone: 04-24-2024 Functional status Chair [facility] Work Phone: 02-17-2024 Functional status Chair [facility] Work Phone: 01-05-2024 Functional status Bedrest [facility] Work Phone: 04-18-2023 Functional status Ambulates;Bathroom Priv ilege [facility] Work Phone: 09-18-2022 Functional status Dependent/Unable [facility] Work Phone: 08-16-2022 Functional status Ambulates;Chair [facility] Work Phone: Mental Status Date Assessment Result Facility 05-17-2024 Cognitive function Voice/Name [facility] Work Phone: 04-24-2024 Cognitive function Voice/Name [facility] Work Phone: 04-20-2024 Cognitive function Voice/Name [facility] Work Phone: 02-17-2024 Cognitive function Voice/Name [facility] Work Phone: 01-05-2024 Cognitive function Voice/Name [facility] Work Phone: 01-05-2024 Cognitive function Appropriate;Cooperativ e [facility] Work Phone: 04-18-2023 Cognitive function Voice/Name [facility] Work Phone: 09-18-2022 Cognitive function Voice/Name [facility] Work Phone: 08-16-2022 Cognitive function Voice/Name [facility] Work Phone: 08-14-2022 Cognitive function Level Of Cons ciousness Awake;Alert;Appropriate;Follow s Commands [facility] Work Phone: Clinical Notes 07-27-2008 to [...] usual activities immediately. documented in this encounter [facility] 08-11-2024 Note HNO ID: [id number] Author: JEROMY LAI MD Service: ? Author Type: Physician Type: Progress Notes Filed: 08/11/2024 17:40 Note Text: Endocrinology and Metabolism [facility] [facility] Visit Note NAME: Donna Marsh is a 68 year old old female PCP: Rudy Boyer NP Requesting Provider: Regina Oden MD [address] [facility] [address] My final recommendations will be communicated back [...] has weaned off Pepsi and now consumes [place] iced tea. Alcohol use: no Use of [...] by mouth on (more content not included)... [facility] 08-11-2024 History of Present illness Narrative Endocrinology and Metabolism [facility] Visit Note NAME: Donna Marsh is a 68 year old old female PCP: Rudy Boyer NP Requesting Provider: Regina Oden MD [address] [facility] [id number] My final recommendations will be communicated back [...] has weaned off Pepsi and now consumes [place] iced tea. Alcohol use: no Use of [...] L5; follows with DR. LINDSEY Morbid obesity ([facility]) since quit smoking Osteopenia Osteoporosis [...] 0.00 SPE Staff Review Reviewed by Yayo Bbab M.D. Albumin, Urine (Prot Electro) % 46.23 Alpha 1 Globulin, Urine % 4.64 Alpha 2 Globulin, Urine % 15.66 Beta Globulin, Urine % 19.44 Gamma Globulin, Urine % 14.02 Interpretation (Urine Electro) No definitive M protein is identified on protein electrophoresis. No definitive M protein is identified on protein electrophoresis. Staff Review (Urine Electro) Reviewed by Yayo Babb M.D. Result ([facility]) No M protein is identified. No M [...] per documentation. No DXA scan done at [facility] or [facility] where are PCP is located Assessment/plan: Donna [...] which included preparing to see the patient, exef-oj-ehso patient care, completing clinical documentation, obtaining and/or reviewing separately obtained history, performing a medically appropriate examination, counseling and educating the patient/family/caregiver, ordering medications, tests, or procedures, independently interpreting results (not separately reported), and communicating results to the patient/family/caregiver. Jeromy Lai MD Endocrinology Associate Staff [facility] Endocrinology and Metabolism [place] [phone] Medical Decision Making: Medical Decision Making Level: 1 - N/A documented in this encounter [facility] 06-20-2024 Note HNO ID: [id number] Author: REGINA ODEN, DO Service: ? Author Type: Physician Type: Progress Notes Filed: 06/20/2024 17:14 Note Text: HPI: The patient is a 68-year-old female with a past medical history significant for atrial fibrillation, bipolar disorder, dementia, depression, hypertension, previous smoker, GERD, right-sided hearing loss, hiatal hernia, high cholesterol, irritable bowel, migraine, CAD (non-ST elevation PR 01/06/2018), psoriatic arthritis, sleep apnea, osteoporosis, Takotsubo syndrome and type 2 diabetes. Patient was admitted to [facility] on 08/05/2022 following a mechanical fall [...] by Gallito Crisostomo MD on 08/13/[address]/Chest without Contrast IMPRESSION: Cardiomegaly with pulmonary [...] in the lateral (more content not included)... [facility] 06-20-2024 History of Present illness Narrative HPI: The patient is a 68-year-old female with a past medical history significant for atrial fibrillation, bipolar disorder, dementia, depression, hypertension, previous smoker, GERD, right-sided hearing loss, hiatal hernia, high cholesterol, irritable bowel, migraine, CAD (non-ST elevation PR 01/06/2018), psoriatic arthritis, sleep apnea, osteoporosis, Takotsubo syndrome and type 2 diabetes. Patient was admitted to [facility] on 08/05/2022 following a mechanical fall [...] by Gallito Crisostomo MD on 08/13/[address]/Chest without Contrast IMPRESSION: Cardiomegaly with pulmonary [...] breath since thoracentesis. She is at the [facility] in skilled care. She was told by [...] that was negative. This was done at [facility]. CT guided bone marrow biopsy of [...] Rhythm is regular. BREAST: Family acted as bacon skinner. No suspicious mass or nodule bilaterally. ABDOMEN: The abdomen is nondistended. No splenomegaly or hepatomegaly. No tenderness. Extremities: No swelling or edema. SKIN: No jaundice or rash. No petechiae. NEUROLOGIC: budget and policy analyst II-XII are grossly intact. Resolved right-sided foot drop. MUSCULOSKELETAL: Generalized muscle wasting. LABS: Serum electrophoresis and immunofixation demonstrated no evidence of monoclonal protein by electrophoresis. Immunofixation negative. Test performed at [facility] 08/16/2022. UA x2 while at [facility] on 08/07 and 08/13 were both [...] density testing on her in either the [facility] or [facility] system. -I reviewed the bone marrow [...] see the patient (reviewing electronic record via [facility] system), [id number] patient care, completing clinical documentation, counseling and educating the patient/family/caregiver, ordering medications, tests, or procedures, communicating with other HCPs (not separately reported), and communicating results to the patient/family/caregiver. Regina Oden DO documented in this encounter [facility] 06-10-2024 Telephone encounter Note Spoke with [facility] and scheduled lab and est complex ov Terrie Lowery [facility] 06-10-2024 Miscellaneous Notes Spoke with [facility] and scheduled lab and est complex ov Terrie Lowery PSS- please contact [facility] [phone] to get patient scheduled for an est [...] be seen. Will await communication back from prison. Katalina You LPN [facility] called stating that patient is back with them at this time. She is asking if patient needed a follow up with Dr. Oden. Patient was here in 2022. Please call Jeannie at [phone] documented in this encounter [facility] 06-10-2024 Telephone encounter Note PSS- please contact [facility] [phone] to get patient scheduled for an est complex OV with Dr. Oden. Will also need a lab appointment for a CBC prior to OV that same day. Cristina Graham LPN [facility] 06-10-2024 Telephone encounter Note Yes, establish complex please. CBC. Regina Oden DO [facility] 06-10-2024 Telephone encounter Note Patient has not seen oncology since last here. All imaging since last here printed and placed in Dr. Oden's mailbox for review. I also placed the biopsy results from 09/18/[address] Oden's mailbox. Est complex OV? Cristina Graham LPN T [facility] 05-29-2024 Telephone encounter Note Called [facility] was placed on hold. Sent fax to nurses telling them we saw patient once in 2022 (then twice in 2009 prior for a different diagnosis). I asked them if there was a reason they thought she needed to be seen. Will await communication back from prison. Katalina You LPN T [facility] 05-29-2024 Telephone encounter Note [facility] from [facility] called stating that patient is back with them at this time. She is asking if patient needed a follow up with Dr. Oden. Patient was here in 2022. Please call Jeannie at [phone] T [facility] Work Phone: 05-17-2024 Progress note Note Date/Time May 17, 2024 11:03am [facility] Medical Records Department [address] [place] [address] Progress Note - Hospitalist 05/17/24 0752 MR#: [id number] Acct: [id number] Name: DONNA MARSH Rep #:[id number] : 1955 68 From: Anuja Murcia MD PCP: ORESTES Cano Status:ADM IN Location: [place] [id number]- Reason for Visit Reason for Visit: Diagnoses [...] 14:45 IMPRESSION: NO ACUTE FINDINGS. Reading Location: [place] [address] Physical Exam Narrative GENERAL: cooperative HEENT: Atraumatic; [...] Requested for PT OT eval and social work lecturer to assist with discharge planning 3. Acute [...] documentation, 40minutes Charges/Coding Visit Charges Inpatient E&M: 05914 Subs Hosp L2 05/17/24 1103 <Electronically signed by Anuja Murcia MD> Cosigner Signature (if applicable): CC: ~ Signed [facility] Work Phone: 1(457) 615-978504-04-2025 Progress note Author Anuja Murcia [facility] Note Date/Time May 16, 2024 2:36 pm [facility] Medical Records Department [address] [place] [address] Progress Note - Hospitalist 05/16/24 1435 MR#: [id number] Acct: [id number] Name: DONNA MARSH Rep #:[id number] : 1955 68 From: Anuja Murcia MD PCP: ORESTES Cano Status:ADM IN Location: [place] [address] Reason for Visit Reason for Visit: Diagnoses Other low back pain (05/14/24) Acute kidney failure, unspecified (05/14/24) Unspecified fall, initial encounter (05/14/24) Subjective Subjective Plan was for patient to be discharged to a [facility] facility however she was found to have [...] % (Auto) 66.6, Lymph % (Auto) 22.2, Hickman % (Auto) 8.0, Eos % (Auto) 2.4, [...] Requested for PT OT eval and social work lecturer to assist with discharge planning 3. Acute [...] documentation, 40minutes Charges/Coding Visit Charges Inpatient E&M: 18140 Subs Hosp L2 05/16/24 1436 <Electronically signed by Anuja Murcia MD> Cosigner Signature (if applicable): CC: ~ Signed [facility] Work Phone: 1(101) 688-305404-04-2025 Radiology Diagnostic study [facility]04-04-2025 Discharge summary Author Anuja Murcia [facility] Note Date/Time May 16, 2024 9:20 am [facility] Medical Records Department [address] [place] [address] Transfer to [facility] MR#: [id number] Acct: [id number] Name: DONNA MARSH David Rep #:[id number] : 1955 68 From: Anuja Murcia MD PCP: ORESTES Cano Status:ADM IN Certification of patient admission REQUIRED AT TIME OF ADMISSION. I CERTIFY THAT POST-HOSPITAL ECF SERVICES ARE REQUIRED TO BE GIVEN ON AN IN-PATIENT BASIS BECAUSE OF THE ABOVE NAMED PATIENT'S NEED FOR INTERMEDIATE CARE ON A CONTINUING BASIS FOR THE [...] Requested for PT OT eval and social work lecturer to assist with discharge planning 3. Acute [...] in before D/C Order can be placed): [facility] Facility 05/16/24 0920 <Electronically signed by Anuja Murcia MD> Cosigner Signature (if applicable): CC: ORESTES Boyer; Dr. Kanwal Aguilar MD; Dr. Jameson Carrillo MD ~ [facility] Work Phone: 1(411) 806-321304-04-2025 Discharge summary Author Anuja Murcia [facility] Note Date/Time May 17, 2024 2:32 pm [facility] Medical Records Department [address] [place] [address] Discharge Summary 05/16/24 0920 MR#: [id number] Acct: [id number] Name: DONNA MARSH Rep #:[id number] : 1955 68 From: Anuja Murcia MD PCP: ORESTES Cano Status:ADM IN Location: [place] [id number]- 1 Providers Date of Admission: 05/14/24 Date [...] Requested for PT OT eval and social work lecturer to assist with discharge planning 3. Acute [...] % (Auto) 66.6, Lymph % (Auto) 22.2, Hickman % (Auto) 8.0, Eos % (Auto) 2.4, [...] in before D/C Order can be placed): [facility] Facility Charges/Coding Visit Charges Inpatient E&M: 14893 Disch Hosp >30min 05/16/24 0921 <Electronically signed by Anuja Murcia MD> Cosigner Signature (if applicable): CC: ORESTES Boyer; Dr. Anuja Murcia MD~ Signed ADDENDUM by Dr. Anuja Murcia MD on 05/17/24 at 1432 Addendum Patient discharge was delayed for a day following markedly elevated blood pressure. [facility] followingstabilization of blood pressure. No further changes made to patient antihypertensive regimen since blood pressure did not drop significantly the following day. 05/17/24 1432<Electronically signed by Anuja Murcia MD> Cosigner Signature (if applicable): cc: ORESTES Boyer; Dr. Anuja Murcia MD ~* Signed [facility] Work Phone: 1(477) 617-981704-04-2025 Progress note Author Suma Robertson [facility] Note Date/Time May 17, 2024 2:25 pm [facility] Medical Records Department [address] [place] [address] Progress Note - Nephrology 05/16/24 0903 MR#: [id number] Acct: [id number] Name: DONNA MARSH Rep #:[id number] : 1955 68 From: Suma cook INDUSTRIAL WASTE INSPECTOR-C PCP: ORESTES Cano Status:ADM IN Location: [place] [address] Subjective Subjective No complaints. No overnight events [...] % (Auto) 66.6, Lymph % (Auto) 22.2, Hickman % (Auto) 8.0, Eos % (Auto) 2.4, [...] of DURAN. Patient has never required any ROAD GRADER OPERATOR. For this admission creatinine was 1.13 on [...] by Jameson Carrillo MD> CC: ~ Signed [facility] Work Phone: 1(549) 727-588804-04-2025 [facility]04-03-2025 Consult note Author Suma Robertson [facility] Note Date/Time May 15, 2024 9:15 pm [facility] Medical Records Department [address] [place] [address] Consultation - Nephrology 05/15/24 1150 MR#: [id number] Acct: [id number] Name: DONNA MARSH Rep #:[id number] : 1955 68 From: Suma CARLISLE PCP: ORESTES Cano Status:ADM IN Location: [place] [address] Documented by User: ORESTES Jaffe 05/15/24 12:02 [...] of DURAN. Patient has never required any ROAD GRADER OPERATOR. For this admission creatinine was 1.13 on [...] with presence of proteinuria who presented to [place] [facility] room on May 13 due to [...] of hospitalization. Patient is never required any ROAD GRADER OPERATOR. Currently patient denies any nausea or vomiting. Patient does not take NSAIDs. Per patient's daughter who is at bedside she feels patient's intake hasbeen poor during this hospitalization. No hematuria [facility] Medical History (Updated 05/15/24 @ 11:54 by Suma Robertson, CRISTOPHER-C) DURAN (acute kidney injury) Sepsis High anion gap metabolic acidosis Acute kidney injury Candidal intertrigo Acute UTI Recurrent falls Acute delirium Altered level of consciousness Acute encephalopathy Myocardial infarction type 2 Non-ST elevation PR (NSTEMI) Hiatal hernia Irritable bowel Back pain [...] % (Auto) 58.2, Lymph % (Auto) 30.1, Hickman % (Auto) 6.3, Eos % (Auto) 4.7, [...] calculus in the right kidney. Reading Location: [facility]1 Documented by User: Dr. Jameson Carrillo MD [...] of DURAN. Patient has never required any ROAD GRADER OPERATOR. For this admission creatinine was 1.13 on [...] plan reviewed with Dr. Carrillo. addendum dw [facility] HPI Consult Data Date of Consult: 05/15/24 [facility] Medical History (Updated 05/15/24 @ 11:54 by Suma Robertson NP-Madelyn) DURAN (acute kidney injury) Sepsis High anion gap metabolic acidosis Acute kidney injury Candidal intertrigo Acute UTI Recurrent falls Acute delirium Altered level of consciousness Acute encephalopathy Myocardial infarction type 2 Non-ST elevation PR (NSTEMI) Hiatal hernia Irritable bowel Back pain [...] <Electronically signed by Jameson Carrillo MD> CC: INDUSTRIAL WASTE INSPECTOR-C Rudy Boyer~ Signed [facility] Work Phone: 1(181) 556-621804-03-2025 Progress note Author Anuja Murcia [facility] Note Date/Time May 15, 2024 11:0 4am [facility] Medical Records Department [address] [place] [address] Progress Note - Hospitalist 05/15/24 1051 MR#: [id number] Acct: [id number] Name: DONNA MARSH Rep #:[id number] : 1955 68 From: Anuja Murcia MD PCP: ORESTES Cano Status:ADM IN Location: [place] [address] Reason for Visit Reason for Visit: Diagnoses [...] % (Auto) 58.2, Lymph % (Auto) 30.1, Hickman % (Auto) 6.3, Eos % (Auto) 4.7, [...] calculus in the right kidney. Reading Location: [facility]- Physical Exam Narrative GENERAL: cooperative HEENT: Atraumatic; [...] Requested for PT OT eval and social work lecturer to assist with discharge planning 3. Acute [...] documentation, 40minutes Charges/Coding Visit Charges Inpatient E&M: 12053 Subs Hosp L2 05/15/24 1104 <Electronically signed by Anuja Murcia MD> Cosigner Signature (if applicable): CC: ~ Signed [facility] Work Phone: 1(109) 252-968504-02-2025 Radiology Diagnostic study [facility]04-02-2025 Progress note Author Anuja Murcia [facility] Note Date/Time May 14, 2024 10:1 8am [facility] Medical Records Department [address] [place] [address] Progress Note - Hospitalist 05/14/24 1011 MR#: [id number] Acct: [id number] Name: DONNA MARSH Rep #:[id number] : 1955 68 From: Anuja Murcia MD PCP: Rudy Boyer NP-Madelyn Status:ADM DANIEL Location: [place] [address] Reason for Visit Reason for Visit: Diagnoses [...] 87.9 H, Lymph % (Auto) 5.0 L, Hickman % (Auto) 6.1, Eos % (Auto) 0.1, [...] Clarity Clear, Urine pH 6.0, Ur Specific [place] 1.010, Urine Protein 100 H, Urine Glucose [...] 84.6 H, Lymph % (Auto) 8.3 L, Hickman % (Auto) 6.4, Eos % (Auto) 0.1, [...] ischemic changes and age-related changes. Reading Location: [facility] Lumbar Spine CT 05/13/24 16:45 IMPRESSION: No obvious acute fracture. Severe multilevel degenerative changes, unchanged. Reading Location: [facility] Physical Exam Narrative GENERAL: cooperative HEENT: Atraumatic; [...] Requested for PT OT eval and social work lecturer to assist with discharge planning 3. Acute [...] 53 Minutes Charges/Coding Visit Charges Inpatient E&M: 00448 [facility] Hosp 05/14/24 1018 <Electronically signed by Anuja Murcia MD> Cosigner Signature (if applicable): CC: ~ Signed [facility] Work Phone: 1(607) 286-233604-02-2025 History and physical note Author Kanwal Aguilar [facility] Note Date/Time May 13, 2024 10:5 1pm [facility] Medical Records Department [address] [place] [address] H&P Exam - Hospitalist 05/13/242135 MR#: [id number] Acct: [id number] Name: DONNA MARSH Rep #:[id number] : 1955 68 From: Kanwal Aguilar MD PCP: ORESTES Cano Status:ADM DANIEL Location: [place] [address] HPI - General General Date of Admission: [...] mellitus type II who presents to the [facility] ED on 05/13/24 with history of recently [...] update given small laceration upon her fall. [facility] Medical History Sepsis High anion gap metabolic acidosis Acute kidney injury Candidal intertrigo Acute UTI Recurrent falls Acute delirium Altered level of consciousness Acute encephalopathy Myocardial infarction type 2 Non-ST elevation PR (NSTEMI) Hiatal hernia Irritable bowel Back pain [...] 87.9 H, Lymph % (Auto) 5.0 L, Hickman % (Auto) 6.1, Eos % (Auto) 0.1, [...] Clarity Clear, Urine pH 6.0, Ur Specific [place] 1.010, Urine Protein 100 H, Urine Glucose [...] ischemic changes and age-related changes. Reading Location: [facility] Lumbar Spine CT 05/13/24 16:45 IMPRESSION: No obvious acute fracture. Severe multilevel degenerative changes, unchanged. Reading Location: [facility] Assessment & Plan Assessment/Plan (1) Intractable low [...] mellitus type II who presents to the [facility] ED on 05/13/24 with history of recently [...] admission discussions. Charges/Coding Visit Charges Inpatient E&M: 74634 Init Hosp L2 05/13/24 0392 <Electronically signed by Kanwal Aguilar MD> Cosigner Signature (if applicable): CC: INDUSTRIAL WASTE INSPECTORJarad Boyer; Dr. Kanwal Aguilar MD~ Signed [facility] Work Phone: 1(616) 517-652404-02-2025 Discharge summary Author Adria Montenegro [facility] Note Date/Time May 13, 2024 10:3 6pm [facility] Medical Records Department [address] [place] [address] Emergency Department Summary 05/13/24 MR#: [id number] Acct: [id number] Name: DONNA MARSH Rep #:[id number] : 1955 68 From: Adria Montenegro MD PCP: ORESTES Cano Status:ADM DANIEL Location: [place] [address] HPI HPI - Fall History of Present [...] back is causing her anxiety as well. [facility] Medical History Sepsis High anion gap metabolic acidosis Acute kidney injury Candidal intertrigo Acute UTI Recurrent falls Acute delirium Altered level of consciousness Acute encephalopathy Myocardial infarction type 2 Non-ST elevation PR (NSTEMI) Hiatal hernia Irritable bowel Back pain [...] 87.9 H Lymph % (Auto) 5.0 L Hickman % (Auto) 6.1 Eos % (Auto) 0.1 [...] Clarity Clear Urine pH 6.0 Ur Specific [place] 1.010 Urine Protein 100 H Urine Glucose [...] ischemic changes and age-related changes. Reading Location: [facility] Lumbar Spine CT 05/13/24 16:45 IMPRESSION: No obvious acute fracture. Severe multilevel degenerative changes, unchanged. Reading Location: [facility] Discharge Plan Triage Chief Complaint: Fall ED Provider: Adria Montenegro Dx/Rx/DC Orders Clinical Impression: Fall, Intractable low back pain, Inability to walk Primary Care Provider: Rudy Boyer What to do if you have Problems For any increased pain, shortness of breath, bleeding, nausea or vomiting, chestpain, or any unexpected problems, contact your Primary Care Provider. Call [facility] ([phone]) or report to the closest Emergency Room. Call 911 if necessary. 05/13/242235 <Electronically signed by Adria Montenegro MD> Cosigner Signature (if applicable): CC: ORESTES Boyer ~ Signed [facility] Work Phone: 1(673) 333-692204-01-2025 Radiology Diagnostic study [facility]04-01-2025 Radiology Diagnostic study [facility]04-01-2025 Discharge summary Author Adria Montenegro [facility] Note Date/Time May 13, 2024 10:3 6pm [facility] Medical Records Department [address] [place] [address] Emergency Department Summary 05/13/24 MR#: [id number] Acct: [id number] Name: MARSHDONNA Rep #:[id number] : 1955 68 From: Adria Montenegro MD PCP: Rudy Boyer NP-Madelyn Status:ADM DANIEL Location: [place] [address] HPI HPI - Fall History of Present [...] back is causing her anxiety as well. [facility] Medical History Sepsis High anion gap metabolic acidosis Acute kidney injury Candidal intertrigo Acute UTI Recurrent falls Acute delirium Altered level of consciousness Acute encephalopathy Myocardial infarction type 2 Non-ST elevation PR (NSTEMI) Hiatal hernia Irritable bowel Back pain [...] 87.9 H Lymph % (Auto) 5.0 L Hickman % (Auto) 6.1 Eos % (Auto) 0.1 [...] Clarity Clear Urine pH 6.0 Ur Specific [place] 1.010 Urine Protein 100 H Urine Glucose [...] ischemic changes and age-related changes. Reading Location: [facility] Lumbar Spine CT 05/13/24 16:45 IMPRESSION: No obvious acute fracture. Severe multilevel degenerative changes, unchanged. Reading Location: [facility] Discharge Plan Triage Chief Complaint: Fall ED Provider: Adria Montenegro Dx/Rx/DC Orders Clinical Impression: Fall, Intractable low back pain, Inability to walk Primary Care Provider: Rudy Boyer What to do if you have Problems For any increased pain, shortness of breath, bleeding, nausea or vomiting, chestpain, or any unexpected problems, contact your Primary Care Provider. Call [facility] ([phone]) or report to the closest Emergency Room. Call 911 if necessary. 05/13/246 <Electronically signed by Adria Montenegro MD> Cosigner Signature (if applicable): CC: INDUSTRIAL WASTE INSPECTOR-C Rudy Boyer ~ Signed [facility] Work Phone: 1(411) 762-131603-13-2025 Discharge summary Author John Maysphillips eye institutemartina [facility] Note Date/Time April 24, 2024 2:3 8pm [facility] Medical Records Department [address] [place] [address] Transfer to [facility] MR#: [id number] Acct: [id number] Name: DONNA MARSH Rep #:[id number] : 1955 68 From: John Short DO PCP: ORESTES Cano Status:ADM IN Certification of patient admission REQUIRED AT TIME OF ADMISSION. I CERTIFY THAT POST-HOSPITAL ECF SERVICES ARE REQUIRED TO BE GIVEN ON AN IN-PATIENT BASIS BECAUSE OF THE ABOVE NAMED PATIENT'S NEED FOR INTERMEDIATE CARE ON A CONTINUING BASIS FOR THE [...] locate a bed for her at the [facility]. I did talk to the patient's [...] can be placed): NonSkilled NH/Intermed Care 04/24/24 3978 <Electronically signed by John Short DO> Cosigner Signature (if applicable): CC: ORESTES Boyer; Dr. Kanwal Aguilar MD ~ [facility] Work Phone: 1(538) 253-178803-13-2025 Discharge summary Author John Short [facility] Note Date/Time April 24, 2024 7:1 8pm [facility] Medical Records Department [address] [place] [address] Discharge Summary 04/24/24 1438 MR#: [id number] Acct: [id number] Name: DONNA MARSH Rep #:[id number] : 1955 68 From: John Short DO PCP: ORESTES Cano Status:ADM IN Location: [facility] PO517-5 Providers Date of Admission: 04/20/24 Date of Discharge: 04/24/24 Primary Care Physician: ORESTES Cano Consultations 04/20/24 21:16 Consult: Inspectors And Regulatory Officers / Pulmonary Medicine Routine Consulting Provider: Intensivists/Pulmonary [...] locate a bed for her at the [facility]. I did talk to the patient's [...] was seen in the emergency room at [facility] after being brought in by squad [...] patient's requested the patient go to a [facility] facility for short-term rehab services, patient reluctantly [...] Care Provider: Rudy Boyer Consulting Providers: Kanwal Augilar Discharge Orders/Prescriptions Prescriptions: New fluoxetine 40 mg [...] on sunday; Referrals / Follow Up: Rudy Boyre NP-C [Primary Care Provider] - Disposition Disposition (needs filled in before D/C Order can be placed): NonSkilled NH/Intermed Care Charges/Coding Visit Charges Inpatient E&M: 93669 Disch Hosp >30min 04/24/241917 <Electronically signed by John Short DO> Cosigner Signature (if applicable): CC: ORESTES Boyer; Dr. John Short DO~ Signed [facility] Work Phone: 1(157) 518-281703-13-2025 [facility]03-12-2025 Progress note Author John Maysphillips eye institutemartina [facility] Note Date/Time April 23, 2024 4:3 5pm [facility] Medical Records Department [address] [place] [address] Progress Note - Hospitalist 04/23/24 1623 MR#: [id number] Acct: [id number] Name: DONNA MARSH Rep #:[id number] : 1955 68 From: John Short DO [...] would like her to go to a [facility] facility for short-term rehab services, I discussed this with her and at first she did not agree with this but then seem to change her mind and agree for temporary placement at a [facility] facility. She told me to try the [...] % (Auto) 68.5, Lymph % (Auto) 23.0, Hickman % (Auto) 6.2, Eos % (Auto) 1.8, [...] locate a bed for her at the [facility]. I did talk to the patient's [...] 35 minutes Charges/Coding Visit Charges Inpatient E&M: 60415 Subs Hosp L2 04/23/24 6022 <Electronically signed by John Short DO> Cosigner Signature (if applicable): CC: ~ Signed [facility] Work Phone: 1(847) 587-569703-11-2025 Progress note Author John Short [facility] Note Date/Time April 22, 2024 6:4 0pm [facility] Medical Records Department [address] [place] [address] Progress Note - Hospitalist 04/22/24 1740 MR#: [id number] Acct: [id number] Name: DONNA MARSH Rep #:[id number] : 1955 68 From: John Short DO PCP: ORESTES Cano Status:ADM IN Location: ICU [place] [address] 4-1 Reason for Visit Reason for Visit: [...] 35 minutes Charges/Coding Visit Charges Inpatient E&M: 27593 Subs Hosp L2 04/22/24 1840 <Electronically signed by John Short DO> Cosigner Signature (if applicable): CC: ~ Signed [facility] Work Phone: 1(443) 492-585003-10-2025 Progress note Author John Maysphillips eye institutemartina [facility] Note Date/Time April 21, 2024 4:5 0pm [facility] Medical Records Department [address] [place] [address] Progress Note - Hospitalist 04/21/24 1642 MR#: [id number] Acct: [id number] Name: DONNA MARSH Rep #:[id number] : 1955 68 From: John Short DO [...] 79.9 H, Lymph % (Auto) 11.4 L, Hickman % (Auto) 7.8, Eos % (Auto) 0.2, [...] use of iterative reconstruction technique). Reading Location: [facility] Pelvis X-Ray 04/20/24 15:22 IMPRESSION: Chronic appearing bilateral trochanteric fractures, please correlate. Chronic bilateral pubic rami fractures, worse on the right. No definite acute displaced fracture or dislocation. Right femoral nailand left total hip prosthesis. Chronic compression fractures of the lower lumbar spine. Reading Location: [facility] Abdomen/Pelvis CT 04/20/24 19:49 IMPRESSION: 1. No acute process. 2. Multiple chronic/incidental findings as above. One or more dose reduction techniques were used (e.g., Automated exposure control, adjustment of the mA and/or kV according to patient size, use of iterative reconstruction technique). Reading Location: [facility] Echocardiogram 04/20/24 23:48 Interpretation Summary The estimated [...] 35 minutes Charges/Coding Visit Charges Inpatient E&M: 84162 Subs Hosp L2 04/21/24 1650 <Electronically signed by John Short DO> Cosigner Signature (if applicable): CC: ~ Signed [facility] Work Phone: 1(189) 100-800903-10-2025 Progress note Author Atul Quezada [facility] Note Date/Time April 21, 2024 11: 17am [facility] Medical Records Department [address] [place] [address] Progress Note - Inspectors And Regulatory Officers 04/21/24 0741 MR#: [id number] Acct: [id number] Name: DONNA MARSH Rep #:[id number] : 1955 68 From: Atul Quezada DO [...] medicationsas indicated. This note was generated with Loc[employer] dictation software. It may contain incorrectwords, spelling, [...] Sl. Cloudy, Urine pH 5.0, Ur Specific [place] 1.020, Urine Protein 500 H, Urine Glucose [...] 86.6 H, Lymph % (Auto) 6.9 L, Hickman % (Auto) 5.6, Eos % (Auto) 0.0, [...] 79.9 H, Lymph % (Auto) 11.4 L, Hickman % (Auto) 7.8, Eos % (Auto) 0.2, [...] microvascular ischemic changes and age-relatedchanges. Reading Location: [facility] Cervical Spine CT 04/20/24 15:14 IMPRESSION: NO ACUTE CERVICAL FRACTURE. DEGENERATIVE CHANGES. One or more dose reduction techniques were used (e.g., Automated exposure control, adjustment of the mA and/or kV according to patient size, use of iterative reconstruction technique). Reading Location: [facility] Chest CT 04/20/24 15:14 IMPRESSION: 1. Visualization is limited by motion artifact. No large focal consolidation orpleural effusion. 2. Severe coronary artery calcifications. One or more dose reduction techniques were used (e.g., Automated exposure control, adjustment of the mA and/or kV according to patient size, use of iterative reconstruction technique). Reading Location: [facility] Pelvis X-Ray 04/20/24 15:22 IMPRESSION: Chronic appearing bilateral trochanteric fractures, please correlate. Chronic bilateral pubic rami fractures, worse on the right. No definite acute displaced fracture or dislocation. Right femoral nailand left total hip prosthesis. Chronic compression fractures of the lower lumbar spine. Reading Location: [facility] Abdomen/Pelvis CT 04/20/24 19:49 IMPRESSION: 1. No acute process. 2. Multiple chronic/incidental findings as above. One or more dose reduction techniques were used (e.g., Automated exposure control, adjustment of the mA and/or kV according to patient size, use of iterative reconstruction technique). Reading Location: [facility] Physical Exam Const alert and no apparent [...] flat affect Charges/Coding Visit Charges Inpatient E&M: 81639 Subs Hosp L2 04/21/24 1117 <Electronically signed by Atul Quezada DO> Cosigner Signature (if applicable): CC: ~ Signed [facility] Work Phone: 1(108) 834-947303-10-2025 Consult note Author Alden Finn [facility] Note Date/Time April 20, 2024 11:4 5pm [facility] Medical Records Department [address] [place] [address] Consultation - Inspectors And Regulatory Officers 04/20/24 2331 MR#: [id number] Acct: [id number] Name: DONNA MARSH Rep #:[id number] : 1955 68 From: Alden cole MD [...] sepsis. She is now admitted tot ICU. [facility] Medical History Myocardial infarction type 2 Non-ST elevation PR (NSTEMI) Hiatal hernia Irritable bowel Back pain [...] 100 Unit/Ml Insuln.Pen SC Not Given Q6H [facility] Protocol Melatonin 3 mg 04/20/24 21:16 Melatonin [...] Sl. Cloudy, Urine pH 5.0, Ur Specific [place] 1.020, Urine Protein 500 H, Urine Glucose [...] 86.6 H, Lymph % (Auto) 6.9 L, Hickman % (Auto) 5.6, Eos % (Auto) 0.0, [...] microvascular ischemic changes and age-relatedchanges. Reading Location: [facility] Cervical Spine CT 04/20/24 15:14 IMPRESSION: NO ACUTE CERVICAL FRACTURE. DEGENERATIVE CHANGES. One or more dose reduction techniques were used (e.g., Automated exposure control, adjustment of the mA and/or kV according to patient size, use of iterative reconstruction technique). Reading Location: [facility] Chest CT 04/20/24 15:14 IMPRESSION: 1. Visualization is limited by motion artifact. No large focal consolidation orpleural effusion. 2. Severe coronary artery calcifications. One or more dose reduction techniques were used (e.g., Automated exposure control, adjustment of the mA and/or kV according to patient size, use of iterative reconstruction technique). Reading Location: [facility] Pelvis X-Ray 04/20/24 15:22 IMPRESSION: Chronic appearing bilateral trochanteric fractures, please correlate. Chronic bilateral pubic rami fractures, worse on the right. No definite acute displaced fracture or dislocation. Right femoral nailand left total hip prosthesis. Chronic compression fractures of the lower lumbar spine. [facility] Abdomen/Pelvis CT 04/20/24 19:49 IMPRESSION: 1. No acute process. 2. Multiple chronic/incidental findings as above. One or more dose reduction techniques were used (e.g., Automated exposure control, adjustment of the mA and/or kV according to patient size, use of iterative reconstruction technique). Reading [facility] Assessment and Plan . Assessment and [...] via Telemedicine 04/20/242344 <Electronically signed by Alden Finn MD> Cosigner Signature (if applicable): CC: INDUSTRIAL WASTE INSPECTOR-C Rudy Boyer~ Signed [facility] Work Phone: 1(663) 198-134203-09-2025 Discharge summary Author Monica Alvarado [facility] Note Date/Time April 20, 2024 9:45 pm [facility] Medical Records Department [address] [place] [address] Emergency Department Summary 04/20/24 MR#: [id number] Acct: [id number] Name: DONNA MARSH Rep #:[id number] : 1955 68 From: Monica VELÁSQUEZ PCP: ORESTES Cano Status:ADM IN Location: ICU [...] <DIDIER Ohara - Last Filed: 04/20/24 19:08> [facility] Medical History Myocardial infarction type 2 Non-ST elevation PR (NSTEMI) Hiatal hernia Irritable bowel Back pain [...] 86.6 H Lymph % (Auto) 6.9 L Hickman % (Auto) 5.6 Eos % (Auto) 0.0 [...] Sl. Cloudy Urine pH 5.0 Ur Specific Venice 1.020 Urine Protein 500 H Urine Glucose [...] ischemic changes and age-related changes. Reading Location: [facility] Cervical Spine CT 04/20/24 15:14 IMPRESSION: NO ACUTE CERVICAL FRACTURE. DEGENERATIVE CHANGES. One or more dose reduction techniques were used (e.g., Automated exposure control, adjustment of the mA and/or kV according to patient size, use of iterative reconstruction technique). Reading Location: [facility] Chest CT 04/20/24 15:14 IMPRESSION: 1. Visualization is limited by motion artifact. No large focal consolidation or pleural effusion. 2. Severe coronary artery calcifications. One or more dose reduction techniques were used (e.g., Automated exposure control, adjustment of the mA and/or kV according to patient size, use of iterative reconstruction technique). Reading Location: [facility] Pelvis X-Ray 04/20/24 15:22 IMPRESSION: Chronic appearing bilateral trochanteric fractures, please correlate. Chronic bilateral pubic rami fractures, worse on the right. No definite acute displaced fracture or dislocation. Right femoral nail and left total hip prosthesis. Chronic compression fractures of the lower lumbar spine. Reading Location: [facility] ED attending interpretation 1 view pelvis shows [...] 86.6 H Lymph % (Auto) 6.9 L Hickman % (Auto) 5.6 Eos % (Auto) 0.0 [...] Sl. Cloudy Urine pH 5.0 Ur Specific Venice 1.020 Urine Protein 500 H Urine Glucose [...] ischemic changes and age-related changes. Reading Location: [facility] Cervical Spine CT 04/20/24 15:14 IMPRESSION: NO ACUTE CERVICAL FRACTURE. DEGENERATIVE CHANGES. One or more dose reduction techniques were used (e.g., Automated exposure control, adjustment of the mA and/or kV according to patient size, use of iterative reconstruction technique). Reading Location: [facility] Chest CT 04/20/24 15:14 IMPRESSION: 1. Visualization is limited by motion artifact. No large focal consolidation or pleural effusion. 2. Severe coronary artery calcifications. One or more dose reduction techniques were used (e.g., Automated exposure control, adjustment of the mA and/or kV according to patient size, use of iterative reconstruction technique). Reading Location: [facility] Pelvis X-Ray 04/20/24 15:22 IMPRESSION: Chronic appearing bilateral trochanteric fractures, please correlate. Chronic bilateral pubic rami fractures, worse on the right. No definite acute displaced fracture or dislocation. Right femoral nail and left total hip prosthesis. Chronic compression fractures of the lower lumbar spine. [facility] <Dr. Joe Preston MD - Last Filed: 04/20/24 15:39> Critical Care Time Critical Care Time: Yes Critical care time (excluding procedures): 30-74 minutes, Including time spent:, Discussing w/Patient &/or Family/Bend Sorter, Discussing w/Consultants, Arranging Admission or Transfer, Performing Direct Patient Care at Bedside and - (35 minutes.) Discharge Plan Dx/Rx/DC Orders Clinical Impression: Altered level of consciousness, Acute dehydration, Acute delirium, History of diabetes mellitus, Chronic anticoagulation, Recurrent falls, Acute UTI, Candidal intertrigo, High anion gap metabolic acidosis, Acute kidney injury Disposition Disposition: [facility] What to do if you have Problems For any increased pain, shortness of breath, bleeding, nausea or vomiting, chest pain, or any unexpected problems, contact your Primary Care Provider. Call [facility] ([phone]) or report to the closest Emergency Room. Call 911 if necessary. 04/20/241907 <Electronically signed by Monica VELÁSQUEZ> Cosigner Signature (if applicable): 04/20/242144 <Electronically signed by Joe Preston MD> CC: INDUSTRIAL WASTE INSPECTOR-C Rudy Boyer ~ Signed [facility] Work Phone: 1(505) 952-519503-09-2025 History and physical note Author Kanwal Aguilar [facility] Note Date/Time April 20, 2024 7:51 pm [facility] Medical Records Department [address] [place] [address] H&P Exam - Hospitalist 04/20/241917 MR#: [id number] Acct: [id number] Name: DONNA MARSH David Rep #:[id number] : 1955 68 From: Kanwal Aguilar MD [...] mellitus type II who presents to the [facility] ED on 04/20/24 with history of persistent [...] 1, acetaminophen 650 mg rectal x 1. [facility] Medical History Myocardial infarction type 2 Non-ST elevation PR (NSTEMI) Hiatal hernia Irritable bowel Back pain [...] Sl. Cloudy, Urine pH 5.0, Ur Specific [place] 1.020, Urine Protein 500 H, Urine Glucose [...] 86.6 H, Lymph % (Auto) 6.9 L, Hickman % (Auto) 5.6, Eos % (Auto) 0.0, [...] microvascular ischemic changes and age-relatedchanges. Reading Location: [facility] Cervical Spine CT 04/20/24 15:14 IMPRESSION: NO ACUTE CERVICAL FRACTURE. DEGENERATIVE CHANGES. One or more dose reduction techniques were used (e.g., Automated exposure control, adjustment of the mA and/or kV according to patient size, use of iterative reconstruction technique). Reading Location: [facility] Chest CT 04/20/24 15:14 IMPRESSION: 1. Visualization is limited by motion artifact. No large focal consolidation orpleural effusion. 2. Severe coronary artery calcifications. One or more dose reduction techniques were used (e.g., Automated exposure control, adjustment of the mA and/or kV according to patient size, use of iterative reconstruction technique). Reading Location: [facility] Pelvis X-Ray 04/20/24 15:22 IMPRESSION: Chronic appearing bilateral trochanteric fractures, please correlate. Chronic bilateral pubic rami fractures, worse on the right. No definite acute displaced fracture or dislocation. Right femoral nailand left total hip prosthesis. Chronic compression fractures of the lower lumbar spine. Reading [facility] Assessment & Plan Assessment/Plan (1) Sepsis: (2) [...] mellitus type II who presents to the [facility] ED on 04/20/24 with history of persistent [...] facility protocol given sepsis presentation, will consult senior validation engineer per protocol, ABG requested, given abdominal generalized [...] renal artery obstruction: Temporarily place on ASA IA, holding NOAC, holding oral HTN regimen given [...] 16 minutes. Charges/Coding Visit Charges Inpatient E&M: 14869 Init Hosp L3 Procedures Hospitalists Procedures: 73614 Advncd Care Plan 30 Min 04/20/241950 <Electronically signed by Kanwal Aguilar MD> Cosign Signature (if applicable): CC: INDUSTRIAL WASTE INSPECTORJarad Boyer; Dr. Kanwal Aguilar MD~ Signed [facility] Work Phone: 1(331) 142-830603-09-2025 Radiology Diagnostic study [facility]03-09-2025 Radiology Diagnostic study [facility]03-09-2025 Radiology Diagnostic study [facility] 04-20-2024 Radiology Diagnostic study [facility]03-09-2025 Radiology Diagnostic study [facility]01-05-2025 [facility]12-13-2024 Evaluation note* Diagnosis Onset Date Resolution Status [...] Hypertension chronic May 13, 2 025 9:36pm [facility] Work Phone: 1(743) 353-647012-13-2024 Evaluation note* Diagnosis Onset Date Resolution Status [...] 2024 11:43am Hypertension chronic May 14 11:43am [facility] Work Phone: 1(960) 423-863111-23-2024 [facility]11-18-2024 Evaluation note* Diagnosis Onset Date Resolution Status [...] April 8:22pm Sepsis acute April 20 8:22pm [facility] Work Phone: 1(774) 862-811811-18-2024 Evaluation note* Diagnosis Onset Date Resolution Status [...] April 7:19pm Sepsis acute April 20 7:19pm [facility] Work Phone: 1(546) 382-816508-08-2024 [facility]04-09-2024 Miscellaneous Notes* Telephone Encounter - Jc Riggs RN - 05/22/2023 7:49 AM EDT Allergy & immunology Previsit Instructions [facility] Telephone encounter Note * Telephone Encounter - Ruthie Alaniz MA - 04/26/2023 1:16 PM EDT Spoke to the nurse and informed her any medication questions needs to be answered from PCP [facility] [id number] Miscellaneous Notes* Telephone Encounter - Ruthie Alaniz MA - 04/26/2023 1:16 PM EDT Spoke to the nurse and informed her any medication questions needs to be answered from PCP * Telephone Encounter - Cecilia Parker - 04/20/2023 2:59 PM EST Rudy / [facility] called in w/ drug allergies the pt has: Oxy- codeine allergy, Oxycodone- Morphine allergy, Meloxicam- Naproxen allergy. Rudy wants to make sure its ok to give pt meds or not. Please Advise [phone]. * Telephone Encounter - Collin Henao - 04/20/2023 11:26 AM EST [facility] calling to request an order for a weekend phone call to check in with patient. They are concerned about her taking her medication (antibiotics) as well as concern for hospital re-admission. Please call Rudy with any questions: [phone] Fax order to: [phone] Thank you! * Telephone Encounter - Collin Henao - 04/17/2023 10:11 AM EST Pt is currently admitted to [facility] for accelerated hypertension. This admissionwas on [...] 04/12/2023 3:23 PM EST Name of caller: [facility] Contact phone number: [phone] Provider: Beth Lozano Practice: Ortho Chief Complaint/Reason for Call: [facility] called stating they got thereferral for the pt, but they also require the most recent OV notes Has to be within the last 90 days), a written and signed order from the dr, the pt's medication list, and a demographic sheet. Theyneed it faxed to [phone]. Please advise. Best time of day caller can be reached: Any Patient advised that office/PCP has 24-48 business hours to return their call: No documented in this [facility]03-08-2024 Telephone encounter Note* Telephone Encounter - Cecilia Parker - 04/20/2023 2:59 PM EST Rudy jeffrey/ [facility] called in w/ drug allergies the pt has: Oxy- codeine allergy, Oxycodone- Morphine allergy, Meloxicam- Naproxen allergy. Rudy wants to make sure its ok to give pt meds or not. Please Advise [phone]. [facility] [id number] Miscellaneous Notes* Telephone Encounter - Cecilia Parker - 04/20/2023 2:59 PM EST Rudy w/ [facility] called in w/ drug allergies the pt has: Oxy- codeine allergy, Oxycodone- Morphine allergy, Meloxicam- Naproxen allergy. Rudy wants to make sure its ok to give pt meds or not. Please Advise [phone]. * Telephone Encounter - Collin Henao - 04/20/2023 11:26 AM EST RN Rudy calling to request an order for a weekend phone call to check in with patient. They are concerned about her taking her medication (antibiotics) as well as concern for hospital re-admission. Please call Rudy with any questions: [phone] Fax order to: [phone] Thank you! * Telephone Encounter - Collin Henao - 04/17/2023 10:11 AM EST Pt is currently admitted to [facility] for accelerated hypertension. This admissionwas on [...] 04/12/2023 3:23 PM EST Name of caller: [facility] Contact phone number: [phone] Provider: Beth Lozano Practice: Ortho Chief Complaint/Reason for Call: [facility] called stating they got thereferral for the pt, but they also require the most recent OV notes Has to be within the last 90 days), a written and signed order from the dr, the pt's medication list, and a demographic sheet. Theyneed it faxed to [phone]. Please advise. Best time of day caller can be reached: Any Patient advised that office/PCP has 24-48 business hours to return their call: No documented in this [facility]03-08-2024 Telephone encounter Note* Telephone Encounter - Collin Henao - 04/20/2023 11:26 AM EST [facility] calling to request an order for a weekend phone call to check in with patient. They are concerned about her taking her medication (antibiotics) as well as concern for hospital re-admission. Please call Rudy with any questions: [phone] Fax order to: [phone] Thank you! [facility] [id number] Discharge summary Author Anuja Murcia [facility] April 18, 2023 7:13am Note Date/Time April 18, 2023 7:13 am [facility] Medical Records Department [address] [place] [address] Discharge Summary 04/18/23 0710 MR#: [id number] Acct: [id number] Name: DONNA MARSH Rep #:[id number] : 1955 67 From: Anuja Murcia MD PCP: ORESTES Cano Status:ADM IN [facility] Prov[facility] Date of Admission: 04/14/23 Date of [...] abdomen obtained was consistent with proctitis admitted [facility] 1. Acute proctitis ?Wall thickening [...] % (Auto) 65.0, Lymph % (Auto) 25.6, Hickman % (Auto) 6.3, Eos % (Auto) 2.8, [...] it as you were given in the prison and use Zofran for any nausea or [...] Self Care Charges/Coding Visit Charges Inpatient E&M: 49798 Disch Hosp >30min 04/18/23 0713 <Electronically signed by Anuja Murcia MD> Cosigner Signature (if applicable): CC: ORESTES Boyer; Dr. Anuja Murcia MD~ Signed [facility] Work Phone: 1(405) 344-739903-05-2024 Progress note Author Christopher Huang [facility] April 17, 2023 6:44pm Note Date/Time April 17, 2023 6:44 pm [facility] Medical Records Department [address] [place] [address] Progress Note - GI 04/17/23 1842 MR#: [id number] Acct: [id number] Name: DONNA MARSH Rep #:[id number] : 1955 67 From: Christopher Huang DO [...] % (Auto) 66.9, Lymph % (Auto) 25.2, Hickman% (Auto) 5.3, Eos % (Auto) 2.0, Baso [...] (3) Hyperammonemia: Charges/Coding Visit Charges Inpatient E&M: 75282 Subs Hosp L3 04/17/23 1844 <Electronically signed by Christopher Friend DO> Cosigner Signature (if applicable): CC: ~ Signed [facility] Work Phone: 1(886) 732-568303-05-2024 Telephone encounter Note* Telephone Encounter - Collin Henao - 04/17/2023 10:11 AM EST Pt is currently admitted to [facility] for accelerated hypertension. This admissionwas on 04/13. Veena will be closing the order for home care at this time. New orders will need to be sent if she needs home care after her current hospital stay. FYLety [facility] [id number] Miscellaneous Notes* Telephone Encounter - Collin Henao - 04/17/2023 10:11 AM EST Pt is currently admitted to [facility] for accelerated hypertension. This admissionwas on [...] 04/12/2023 3:23 PM EST Name of caller: [facility] Contact phone number: [phone] Provider: Beth Loazno Practice: Ortho Chief Complaint/Reason for Call: [facility] called stating they got thereferral for the pt, but they also require the most recent OV notes Has to be within the last 90 days), a written and signed order from the dr, the pt's medication list, and a demographic sheet. Theyneed it faxed to [phone]. Please advise. Best time of day caller can be reached: Any Patient advised that office/PCP has 24-48 business hours to return their call: No documented in this [facility]03-05-2024 Progress note Author Anuja Murcia [facility] April 17, 2023 7:37am Note Date/Time April 17, 2023 7:29 am [facility] Medical Records Department [address] [place] [address] Progress Note - Hospitalist 04/17/23723 MR#: [id number] Acct: [id number] Name: DONNA MARSH Rep #:[id number] : 1955 67 From: Anuja Murcia MD PCP: Rudy Boyer INDUSTRIAL WASTE INSPECTORJarad Status:ADM IN Location: ICU ICU01-1 Reason for [...] % (Auto) 66.9, Lymph % (Auto) 25.2, Hickman% (Auto) 5.3, Eos % (Auto) 2.0, Baso [...] 50 Minutes Charges/Coding Visit Charges Inpatient E&M: 30132 Subs Hosp L3 04/17/23 0737 <Electronically signed by Anuja Murcia MD> Cosigner Signature (if applicable): CC: ~ Signed [facility] Work Phone: 1(488) 770-621603-04-2024 Procedure [facility] 04-16-2023 Procedure [facility]03-04-2024 Progress note Author Anuja Murcia [facility] April 16, 2023 7:58am Note Date/Time April 16, 2023 7:30 am [facility] Medical Records Department [address] [place] [address] Progress Note - Hospitalist 04/16/2329 MR#: [id number] Acct: [id number] Name: DONNA MARSH Rep #:[id number] : 1955 67 From: Anuja Murcia MD [...] % (Auto) 66.7, Lymph % (Auto) 24.6, Hickman% (Auto) 5.6, Eos % (Auto) 2.6, Baso [...] abdomen obtained was consistent with proctitis admitted [facility] 1. Acute proctitis ?Wall thickening [...] 50 Minutes Charges/Coding Visit Charges Inpatient E&M: 01519 Subs Hosp L3 04/16/23 0758 <Electronically signed by Anuja Murcia MD> Cosigner Signature (if applicable): CC: ~ Signed [facility] Work Phone: 1(868) 229-476003-04-2024 History and physical note Author Anuja Brown [facility] April 16, 2023 2:06am Note Date/Time April 14, 2023 7:01 am [facility] Medical Records Department [address] [place] [address] H&P Exam - Hospitalist 04/14/23614 MR#: [id number] Acct: [id number] Name: DONNA MARSH Rep #:[id number] : 1955 67 From: Anuja Camarillo DO [...] from facility back home who presents to [facility] ER complaining of nausea, vomiting and [...] expected to be greater than 48 hours. [facility] Medical History Anxiety Atrial fibrillation Back pain [...] (Auto) 88.6 H, Lymph % (Auto)8.2 L, Hickman % (Auto) 2.2, Eos % (Auto) 0.2, [...] Sl. Cloudy, Urine pH 7.0, Ur Specific Venice 1.010, Urine Protein 500 H, Urine Glucose [...] culture and sensitivity data. Give Tylenol prn [id number]-ss-[id number] (level 1-5/10) pain or fever. Give Dilaudid [...] with patient having spent ~3 months at [facility]. PT/OT and case management to see [...] 75 minutes. Charges/Coding Visit Charges Inpatient E&M: 51424 Init Hosp L3 04/14/23 0749 <Electronically signed [...] 1992), coronary artery disease status postnon-ST elevation PR (2018), history of atrial fibrillation, history of [...] from facility back home who presents to [facility] complaining of nausea, vomiting and abdominal [...] Boyer; Dr. Anuja Noel DO ~* Signed [facility] Work Phone: 1(105) 351-781703-03-2024 Consult note Author Christopher Friend [facility] April 15, 2023 5:19pm Note Date/Time April 15, 2023 5:02 pm [facility] Medical Records Department [address] [place] [address] Consultation - GI 04/15/23 1658 MR#: [id number] Acct: [id number] Name: DONNA MARSH Rep #:[id number] : 1955 67 From: Christopher Huang DO [...] on admission due to suspected hypertensive urgency. [facility] Medical History Anxiety Atrial fibrillation Back pain [...] % (Auto) 69.8, Lymph % (Auto) 22.3, Hickman% (Auto) 6.3, Eos % (Auto) 1.1, Baso [...] NORMA antibodies Charges/Coding Visit Charges Inpatient E&M: 36196 Init Hosp L3 04/15/23 1719 <Electronically signed by Christopher Huang DO> Cosigner Signature (if applicable): CC: ORESTES Boyer; Dr. Anuja Noel DO; Christopher Huang DO~ Signed [facility] Work Phone: 1(813) 965-683203-03-2024 Progress note Author Tamiko Quigley [facility] April 15, 2023 10:55am Note Date/Time April 15, 2023 10:5 5am [facility] Medical Records Department [address] [place] [address] Progress Note - Hospitalist 04/15/23 1045 MR#: [id number] Acct: [id number] Name: DONNA MARSH Rep #:[id number] : 1955 67 From: Tamiko Quigley DO PCP: ORESTES aCno Status:ADM IN Location: ICU ICU01-1 Reason for [...] and is to be seen at the [facility] in May. Objective Data Objective Data Vital [...] % (Auto) 69.8, Lymph % (Auto) 22.3, Hickman% (Auto) 6.3, Eos % (Auto) 1.1, Baso [...] tell me that she has follow-up at [facility] in May -Recommend ongoing outpatient follow-up History [...] -Full code Charges/Coding Visit Charges Inpatient E&M: 35289 Subs Hosp L2 04/15/23 1055 <Electronically signed by Tamiko Quigley DO> Cosigner Signature (if applicable): CC: ~ Signed [facility] Work Phone: 1(516) 414-831403-03-2024 Progress note Author Tamiko Quigley [facility] April 15, 2023 10:45am Note Date/Time April 14, 2023 3:32 pm [facility] Medical Records Department [address] [facility] [place] [address] Progress Note - Hospitalist 04/14/23 1508 MR#: [id number] Acct: [id number] Name: DONNA MARSH Rep #:[id number] : 1955 67 From: Tamiko Quigley DO PCP: ORESTES Cano Status:ADM IN Location: ICU ICU01-1 Reason for Visit Reason for Visit: Nausea/vomiting/abdominal pain Subjective Subjective Mrs. Marsh is a 67-year-old white female who presented to the emergency department at [facility] on 04/14/2023 in the morning with [...] (Auto) 88.6 H, Lymph % (Auto)8.2 L, Hickman % (Auto) 2.2, Eos % (Auto) 0.2, [...] Sl. Cloudy, Urine pH 7.0, Ur Specific Venice 1.010, Urine Protein 500 H, Urine Glucose [...] Cosigner Signature (if applicable): CC: ~ Signed [facility] Work Phone: 1(461) 408-738503-02-2024 Discharge summary Author Marcos Hoffman [facility] April 14, 2023 7:48am Note Date/Time April 14, 2023 5:15 am [facility] Medical Records Department [address] [place] [address] Emergency Department Summary 04/14/23 MR#: [id number] Acct: [id number] Name: DONNA MARSH Rep #:[id number] : 1955 67 From: Marcos Hoffman DO PCP: ORESTES Cano Status:ADM IN Location: PCU MWC986- 1 ADDENDUM by Marcos Hoffman DO on [...] Hoffman DO> Cosigner Signature (if applicable): cc: INDUSTRIAL WASTE INSPECTOR-C Rudy Boyer ~* Signed HPI History of Present Illness Chief Complaint: Nausea/Vomiting/Diarrhea Informant: patient and spouse/S.O. Narrative Narrative: Patient is a 67-year-old female with past medical history of hypertension hyperlipidemia diabetes chronic kidney disease and previous hip fracture requiring ORIF. Patient and spouse state that after the fracture and her hospital stay she was [facility] the [facility] where she has been since approximately August/September. They state that she is only been home for the last week or so and that there is been difficulty in having her continue the medications which she was receiving at the prison. Patient states that inthe last few hours she developed generalized abdominal discomfort with bouts of nausea and vomiting and overall sense of feeling unwell. She also states that is been approximate 24 hours since her last oxycodone use which she also reportsshe was taking daily at the prison. Otherwise she denies any fevers or chills or chest pain or shortness of breath. [facility] Medical History Anxiety Atrial fibrillation Back pain [...] medications since she is returned from the prison. Patient also reported it has been roughly [...] 88.6 H Lymph % (Auto) 8.2 L Hickman % (Auto) 2.2 Eos % (Auto) 0.2 [...] Sl. Cloudy Urine pH 7.0 Ur Specific Venice 1.010 Urine Protein 500 H Urine Glucose [...] your Primary Care Provider. Call [facility] ([phone]) or report to the closest Emergency Room. Call 911 if necessary. 04/14/23 0639 <Electronically signed by Marcos Hoffman DO> Cosigner Signature (if applicable): CC: ORESTES Boyer ~ Signed [facility] Work Phone: 1(291) 702-537403-02-2024 History and physical note Author Anuja Brown [facility] April 14, 2023 7:54am Note Date/Time April 14, 2023 7:01 am [facility] Medical Records Department [address] [place] [address] H&P Exam - Hospitalist 04/14/23614 MR#: [id number] Acct: [id number] Name: DONNA MARSH Rep #:[id number] : 1955 67 From: Anuja Camarillo DO PCP: ORESTES Cano Status:ADM IN Location: [place] [address] HPI - General General Date of Admission: [...] from facility back home who presents to [facility] ER complaining of nausea, vomiting and [...] expected to be greater than 48 hours. [facility] Medical History Anxiety Atrial fibrillation Back pain [...] (Auto) 88.6 H, Lymph % (Auto)8.2 L, Hickman % (Auto) 2.2, Eos % (Auto) 0.2, [...] Sl. Cloudy, Urine pH 7.0, Ur Specific Venice 1.010, Urine Protein 500 H, Urine Glucose [...] culture and sensitivity data. Give Tylenol prn llqp-jr-xvdwnnlf (level 1-5/10) pain or fever. Give Dilaudid [...] with patient having spent ~3 months at [facility]. PT/OT and case management to see [...] 75 minutes. Charges/Coding Visit Charges Inpatient E&M: 64652 Init Hosp L3 04/14/23 0749 <Electronically signed [...] Boyer; Dr. Anuja Noel DO ~* Signed [facility] Work Phone: 1(868) 313-207503-02-2024 Discharge summary Author Marcos Hoffman [facility] April 14, 2023 7:48am Note Date/Time April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 Recommendations Equipment Needed: No [...] was Complication of internal hip prosthesis,initial encounter ([facility]). A diagnosis of Failed orthopedic implant, initial encounter ([facility]) was alsopertinent to this visit. has a [...] (temporalis) Fluid Accumulation: No significant fluid accumulation Beaver Trapper Strength: Not Performed Nutrition Assessment: S/p Left [...] On: Kcal/kg Weight Used for Energy Requirements: [place] Weight for Energy Calculation (kg): 54.5 kg Total Energy Requirements (kcals/day): 1363-1635kcals/day Weight Used for Protein Requirements: [place] Weight in Kg Used for Protein Requirements: [...] for review) % Weight Change (Calculated): -17.1 [place] Body Weight (lbs) (Calculated): 120 lbs [place] Body Weight (Kg) (Calculated): 55 kg % [place] Body Weight (Calculated): 120.8 % BMI (kg/m2) [...] Oral Nutrition Supplement Terrie Hernandez RD Contact: [employer] chat or *[phone] * Gayle Herbert MD - 10/13/2022 1:21 PM EDT Images from the original note were not included. Hospitalist Progress Note 10/13/2022 Subjective: Admit Date: 10/03/2022 PCP: CICI CALDERON Room#: H-6127/H-6127 A Interval History: Donna is a 66 year old female, who presents to the ED with left hip pain s/p ORIF in July. She [facility] for evaluation of possible hardware failure. [...] Gayle Herbert MD Division of Hospitalist Medicine [facility] * Sharita Freedman, ANIMAL THERAPIST - 10/13/2022 11:57 AM EDT Physical Therapy Facility/Department: Physical Therapy Daily Treatment Note NAME: Donna Marsh : 1955 Date of Service: 10/13/2022 Discharge Recommendations: [facility] Facility PT Equipment Recommendations Equipment Needed: No Other: tbd Assessment Requires PT Follow-Up: Yes Assessment: Pt limited by decreased functional strength/endurance and impaired balance d/t partial WB LLE + KI. Pt required Mod x1 overall to complete sitting EOB. Pt able to stand w/ ANIMAL THERAPIST in front today and pivot to chair; [...] was Complication of internal hip prosthesis,initial encounter ([facility]). A diagnosis of Failed orthopedic implant, initial encounter ([facility]) was alsopertinent to this visit. has a [...] pt for PT. LLE KI donned upon ANIMAL THERAPIST arrival. Pt states increased LLE pain when [...] Moderate Assistance Stand Pivot Transfers: Maximum Assistance (ANIMAL THERAPIST in front w/ R knee blocking at times) Comment: x2 from EOB; ANIMAL THERAPIST in front to improve forward translation d/t [...] 1955 Date of Service: 10/12/2022 Discharge Recommendations: [facility] Facility PT Equipment Recommendations Equipment Needed: No [...] were not included. Occupational Therapy OCCUPATIONAL THERAPY [facility] Initial Evaluation Name/MRN: Donna Marsh ([id number]) Evaluation Date: 10/12/2022 Date of : 1955 Admission Date: 10/03/2022 5:27 PM Age: 66 y.o. [facility] Discharge Recommendation: SNF Equipment Needed: [...] 2 (HCC) 10/09/2022 Failed orthopedic implant (CMS/HCC) ([facility]) 10/03/2022 Left hip pain 10/03/2022 Complication of internal hip prosthesis, initial encounter ([facility]) 10/03/2022 Medical Precautions: No active isolations Proper [...] Device(s) used: rollator Transfer Assistance: Independent Active Sanitation Tank Washer: N/A Objective ADLs LE Dressing: Dependent Upper [...] of Care supervision is transferred to a [facility] Therapy Services Occupational Therapist. Goals and/or treatment plan was established in collaboration with patient/family/other representatives. * Adria Parker JD, MD - 10/12/2022 6:27 AM EDT Images from the original note were not included. [facility] [address] [place] [id number] Dept: [phone] Adult Orthopaedic Service Patient Name: Donna Marsh [...] in July. She was initially admitted [facility] for evaluation of possible hardware failure. [...] Gayle Herbert MD Division of Hospitalist Medicine [facility] * Cece Alcala PA-C - 10/11/2022 4:00 [...] Active Problem List Diagnosis Failed orthopedic implant ([facility]) ([facility]) Left hip pain Complication of internal hip prosthesis, initial encounter ([facility]) HTN (hypertension) HLD (hyperlipidemia) Gastroesophageal reflux disease Diabetes mellitus, type 2 ([facility]) PAST SURGICAL HISTORY Past Surgical History: Procedure [...] Causey MD ergocalciferol (Vitamin D-2) 1.25 MG (64891 UT) capsule Take by mouth. Historical Provider, [...] in July. She was initially admitted [facility] for evaluation of possible hardware failure. [...] Gayle Herbert MD Division of Hospitalist Medicine [facility] * Holli Saldaña, PT - 10/11/2022 10:56 AM EDT Physical Therapy Facility/Department: Physical Therapy Initial Evaluation NAME: Donna Marsh : 1955 Date of Service: 10/11/2022 Discharge Recommendations: [facility] Facility PT Equipment Recommendations Equipment Needed: No Assessment Requires PT Follow-Up: Yes Assessment: 66 y.o. female admitted to [facility] for hardware failure, s/p R COSTA with [...] was Complication of internal hip prosthesis,initial encounter ([facility]). A diagnosis of Failed orthopedic implant, initial encounter ([facility]) was alsopertinent to this visit. has a [...] Pt stated she has been in a prison for 2 months since first hip surgery [...] encounter. Holli Piper, PT * Amaya Fili, PUBLIC INFORMATION SPECIALIST - HORSE RANCHER - 10/11/2022 9:56 AM EDT Images from the original note were not included. [facility] Wound Care Progress Note Donna Marsh AGE: [...] ortho office yesterday, she was sent to [place] ED for further evaluation, imaging, and treatment. [...] by mouth. ergocalciferol (Vitamin D-2) 1.25 MG (72284 UT) capsule Take by mouth. fexofenadine (Roc) [...] ulcer - Apply skin prep then leave TRANSITION RN daily and PRN Umbilicus: Abrasion - Apply skin prep. Leave TRANSITION RN. Apply daily and PRN. Nutritional support Wound Care to follow Recommend to follow up at [facility] wound care center after hospital discharge. Any questions or concerns please secure chat [facility] wound/ostomy. Thank you for the consult! I [...] the original note were not included. [facility] [address] [facility] [address] Dept: [phone] Adult Orthopaedic Service Patient Name: Donna Marsh [...] surgical intervention 25% WB LLE in [facility] at all times, please check skin around [...] Luis Causey MD PGY-4 Orthopedic Surgery Pager [phone] * Luis Causey MD - 10/10/2022 7:50 PM EDT Orthopedic Surgery Progress Notes: No plans for further surgical intervention 25% WB LLE in [facility] at all times, please check skin around [...] in July. She was initially admitted [facility] for evaluation of possible hardware failure. [...] On: Kcal/kg Weight Used for Energy Requirements: [place] Weight for Energy Calculation (kg): 54.5 kg Total Energy Requirements (kcals/day): 1363-1635kcals/day Weight Used for Protein Requirements: [place] Weight in Kg Used for Protein Requirements: [...] for review) % Weight Change (Calculated): -17.1 [place] Body Weight (lbs) (Calculated): 120 lbs [place] Body Weight (Kg) (Calculated): 55 kg % [place] Body Weight (Calculated): 120.8 % BMI (kg/m2) [...] Oral Nutrition Supplement, Continue current diet Laura Nortno MS, RD Contact: *[phone] or [employer] chat * Gayle Herbert MD - 10/10/2022 1:45 PM EDT Images from the original note were not included. Hospitalist Progress Note 10/10/2022 Subjective: Admit Date: 10/03/2022 PCP: CICI CALDERON Room#: OR/NONE Interval History: Donna is a 66 year old female, who presents to the ED with left hip pain s/p ORIF in July. She was initially admitted to [facility] for evaluation of possible hardware failure. [...] Gayle Herbert MD Division of Hospitalist Medicine [facility] * Senia Griffith MD - 10/10/2022 7:06 [...] from the original note were not included. [address] [place] [id number] Dept: [phone] Adult Orthopaedic Service Patient Name: Donna Marsh [...] clearance in case of OR, page ortho ribbon blocker with clearance status -Orthopaedic surgery will follow. Please page ribbon blocker orthopaedic resident for questions or concerns. Home [...] in July. She was initially admitted to [facility] for evaluation of possible hardware failure. [...] Gayle Herbert MD Division of Hospitalist Medicine [facility] * Alvarez Gurerero MD - 10/09/2022 1:03 PM EDT Department [...] 1:03 PM * Amaya Penn APRN - HORSE RANCHER - 10/09/2022 12:56 PM EDT Images from the original note were not included. [facility] Wound Care Progress Note Donna Marsh AGE: [...] ortho office yesterday, she was sent to [place] ED for further evaluation, imaging, and treatment. [...] by mouth. ergocalciferol (Vitamin D-2) 1.25 MG (31939 UT) capsule Take by mouth. fexofenadine (Roc) [...] ulcer - Apply skin prep then leave TRANSITION RN daily and PRN Nutritional support Wound Care to follow Recommend to follow up at [facility] wound care center after hospital discharge. Any [...] in July. [facility] possible hardware failure. [...] Gayle Herbert MD Division of Hospitalist Medicine [facility] * Gayle Herbert MD - 10/07/2022 1:22 PM EDT Images from the original note were not included. Hospitalist Progress Note 10/07/2022 Subjective: Admit Date: 10/03/2022 PCP: CICI CALDERON Room#: H-6127/H-6127 A Interval History: Donna is a 66 year old female, who presents to the ED with left hip pain s/p ORIF in July. She was [facility] admitted [facility] for evaluation of possible hardware failure. [...] Gayle Herbert MD Division of Hospitalist Medicine [facility] * Gayle Herbert MD - 10/06/2022 1:59 PM EDT Images from the original note were not included. Hospitalist Progress Note 10/06/2022 Subjective: Admit Date: 10/03/2022 PCP: CICI CALDERON Room#: H-6127/H-6127 A Interval History: Donna is a 66 year old female, who presents to the ED with left hip pain s/p ORIF in July. She was [facility] admitted [facility] for evaluation of possible hardware failure. [...] Gayle Herbert MD Division of Hospitalist Medicine [facility] * Lydia GiftyCasie Bradshaw, RD - 10/05/2022 2:11 PM EDT Nutrition Assessment Type and Reason for Visit: Initial, Positive Nutrition Screen (weight loss, decreased appetite) Nutrition Recommendations/Plan: PATIENT MEETS ASPEN/AND GUIDELINES FOR MODERATE MALNUTRITION IN THE CONTEXT OF CHRONIC ILLNESS. 1. Pt is currently ordered a Regular Diet which is appropriate. --> plans for NPO at DC on 10/10 for planned OR. 2. Will [...] (temporalis) Fluid Accumulation: No significant fluid accumulation Beaver Trapper Strength: Not Performed Nutrition Assessment: pt with PMH significant for AFib, bipolar, dementia, HTN, CAD, DM2, HLD and neuropathy who presented to [facility] ED on 10/03/22 as a referral from [facility], in late July pt suffered a [...] process, pt was ultimately [facility] a [facility], pt followed up with Oncology who ordered [...] on 10/10/22 pending multispecialty coordination (NPO at DC orders placed by Ortho), pt currently with [...] On: Kcal/kg Weight Used for Energy Requirements: [place] Weight for Energy Calculation (kg): 54.5 kg Total Energy Requirements (kcals/day): 1363-1635kcals/day Weight Used for Protein Requirements: [place] Weight in Kg Used for Protein Requirements: 54.5 kg Estimated Total Protein (g/day): 55-65gm pro/day Estimated Daily Total Fluid (ml/day): per MD recommendations Nutrition Related Findings: Raji = 16, skin intact, missing teeth, active bowel sounds, BM 10/04, has been at [facility], pt states appetite is a little decreased, [...] for review) % Weight Change (Calculated): -17.1 [place] Body Weight (lbs) (Calculated): 120 lbs [place] Body Weight (Kg) (Calculated): 55 kg % [place] Body Weight (Calculated): 120.8 % BMI (kg/m2) [...] determine Lydia Bradshaw RD Contact: available via [employer] or *[phone] * Cece Alcala PA-C - 10/05/2022 1:57 PM EDT Orthopedic Surgery Progress Note Left knee xray ordered and subsequently obtained. My interpretation is as follows: Left knee xray (10/05/22): no acute fracture or dislocation. Generalized vascular calcification Orthopaedic surgery will follow. Please page ribbon blocker orthopaedic resident for questions or concerns. * [...] in July. She was [facility] of possible hardware failure. [...] Alexis Coles MD Division of Hospitalist Medicine [facility] * Cece Alcala PA-C - 10/05/2022 10:08 AM EDT Images from the original note were not included. [facility] [address] [address] [place] [id number] Dept: [phone] Loc: [phone] PATIENT: Donna Marsh DATE OF : 1955 ACCT: [id number] PCP: CICI CALDERON DATE OF ADMISSION: 10/03/2022 DATE OF SERVICE: Pt seen/examined on 10/05/2022 Subjective CHIEF COMPLAINT: status post left cephalomedullary nail for peritrochanteric hip fracture on 08/06/2022 with interval complete hardware failure and fracture collapse. HPI: Patient is seen resting comfortably in bed. Patient was transferred from [place] overnight. She reports that the pain in [...] Historical Provider, ergocalciferol (Vitamin D-2) 1.25 MG (02605 UT) capsule Take by mouth. Historical Provider, [...] gel 15 g, 15 g, Oral, PRN, Koif Jolley MD Insulin Lispro (Humalog) injection 0-12 Units, 0-12 Units, SubCUTAneous, q6h, 10 Units at 10/04/221999 AND Insulin Lispro (Humalog) injection 0-12 Units, 0- 12 Units, SubCUTAneous, Nightly, Petar Rivers MD, 10 Units at 10/04/222099 lisinopril [...] clearance in case of OR, page ortho ribbon blocker with clearance status -Orthopaedic surgery will follow. Please page ribbon blocker orthopaedic resident for questions or concerns. * Petra Rivers MD - 10/04/2022 4:43 PM EDT Discussed patient care with Orthopedic Surgery, Patient to be transferred to [facility] for higher level of surgical care. Dr. Sofia Sena from [facility] will accept transfer. Petra Rivers MD Division of Hospitalist Medicine [facility] * Liset Zhou MD - 10/04/2022 4:40 PM EDT Brief Orthopaedic Surgery Progress Note Spoke with Dr. Petra Rivers regarding pending transfer of patient to [facility]. At this time, patient's left hip requires [...] surgery. Ortho to follow for transfer [facility]. Please reach out with questions or concerns. Liset Zhou MD PGY-1, Orthopaedic Surgery 10/04/22 4:43 PM * Luis Causey MD - 10/04/2022 4:20 PM EDT Orthopedic Surgery Progress Note: Discussed patient care with General Surgery and Vascular team due to the proximity of the iliac artery near the tip of the screw. Plan will be to transfer patient to [facility] for further management. Will plan to due to the removal of hardware with the vascular surgery team present. Luis Causey MD PGY-4 Orthopedic Surgery Pager [phone] * Petra Rivers MD - 10/04/2022 7:22 AM EDT Hospitalist Progress Note 10/04/[phone]: Please secure chat me on patient care issues. : Please secure chat [facility] Hospitalist for any issues. Subjective: Admit Date: 10/03/2022 PCP: CICI CALDERON Room#: CHIEF COMPLAINT: left hip pain Interval History: No overnight issues. Continues to have left sided hip pain, and endorsing some nausea. Has not ate since last night - does have some GERD. Denies chest pain, sob, abdominal pain, vomiting, diarrhea, constipation, fevers, or chills. NPO diet without enteral medications @[id number]@ 24HR INTAKE/OUTPUT: No intake or output data [...] Emergency Contact Information Primary Emergency Contact: Joo Bernsetin Relation: None Petra Rivers MD Division of Hospitalist Medicine [facility] PAGER: [employer] chat * Debi Lamb MD - 10/04/2022 [...] evaluation in the AM. documented in this [facility]09-03-2023 Nurse Note* Omar Zarco RN - 10/15/2022 1:13 PM EDT Report given to clinical staff rn at [facility]. Pt waiting on transport. * nAgelita Castañeda LPN - 10/04/2022 5:41 PM EDT Report called to Omar VILLASENOR at [facility]. Patient to be transferred via [facility] at 7pm [id number] on H6. documented in this [facility]09-03-2023 Miscellaneous Notes* Care Coordination - Unknown Case Management - 10/15/2022 11:43 AM EDT Patient Choice Patient Name: DONNA MARSH Date of : 1955 All Providers Sent Referral Name: [facility] Phone: [phone] Address: [address] [place] [address] * Care Coordination - Terrie Scott RN - 10/15/2022 11:34 AM EDT Images from the original note were not included. CARE COORDINATION DAILY NOTE/UPDATE Medical Plan: s/p Left Hip removal of hardware with conversion to COSTA on 10/10. Drain removed and Ancef discontinued 10/14. PT/OT rec SNF. Active discharge order. Discharge Plan: [facility]- [facility] good through 10/17 Discharge Barriers: none This [facility] was tasked to follow this patient through the weekend assisting with discharge planning. Shuffle Board Operator Paula asked to schedule transport- time set for 1400. Omar VILLASENOR updated on plan and asked to update patient. Discharge documents including Discharge Summary, After Visit Summary, MAR, LABS, and Vitals were uploaded into [facility] for facility review. Facility made aware of transport time. Discharge Milestones and Delays Expected Date/Time: 10/15/2022 Afternoon Disposition: [facility] Facility Transport status: No current request Discharge [...] OT rec SNF. Discharge plan return to [facility]. Auth obtained. Pt with drain in place [...] Plan is for pt to return to [facility] when stable. Ambulance form completed and placed on pt's chart. * Care Coordination - Rosalba Elizalde RN - 10/12/2022 10:47 AM EDT Images from the original note were not included. Care Management Progress Note Patient remains on H6 s/p L CMS on 08/06, removal of hardware with conversion to COSTA. PT recommending SNF and OT evaluation pending. Discharge plan return to [facility], awaiting OT evaluation to start insurance authorization. [...] with recommendation of snf. Pt is from [facility] with plan for return. We will need [...] Srinivasan RN - 10/10/2022 9:36 PM EDT Nitrocellulose Operator at bedside to block pt * Op Note - Berry Mares MD - 10/10/2022 3:13 PM EDT Images from the original note were not included. [facility] OR [address] [facility] [address] Dept: [phone] Loc: [phone] Operative Report Patient Name: Donna Marsh Date [...] seen and thoroughly evaluated by a medical imaging director preoperatively and was optimized for surgical intervention. [...] the pelvis held securely via the Hip Beaver Trapper positioner. A pre- scrub was completed with alcohol solution. The hip was then prepped with Chloroprep solution and draped in standard sterile fashion. A surgical time out was called and the correct patient, correct extremity, correct procedure, operating room team and personnel, and that IV antibiotics had been appropriately given and documented. In addition, it was confirmed that the implant vendor claim representative and appropriate implants were present and [...] gluteus minimus muscle was retracted with a [place] retractor, exposing the posterosuperior hip capsule. The [...] the lag screw. Then, with a vice western felt hat blocker the lag screw was fully removed. No [...] hip was then carefully reduced. Leg length oriental orthodox appeared satisfactory based on the intraoperative landmarks [...] PM EDT Date: 10/03/2022 - 10/10/2022 Location: [facility] OR Name: Donna Marsh, : 1955, Diagnosis Pre-op Diagnosis * Failed orthopedic implant, initial encounter ([facility]) [T84.498A] Post-op Diagnosis * Failed orthopedic implant, initial encounter ([facility]) [T84.498A] Procedures LEFT CONVERSION TOTAL HIP REPLACEMENT WITH REMOVAL OF HARDWARE - IA ARTHRP ACETBLR/PROX FEM PROSTC AGRFT/ALGRFT Surgeons * [...] WITH STAIN Berry Mares MD 10/10/22 1637 [id number], [id number] Description: LEFT HIP CULTURE B Hip, Left Tissue AEROBIC AND ANAEROBIC CULTURE WITH STAIN Berry Mares MD 10/10/22 1648 Routine [id number], [id number] Description: LEFT HIP CULTURE C Hip, Left Tissue AEROBIC AND ANAEROBIC CULTURE WITH STAIN Berry Mares MD 10/10/22 1750 Routine [id number], [id number] Description: LEFT HIP TISSUE CULTURE Implants Type Name Action Serial No. [employer] Bone FILLER BN VOID 5ML 1.7-10MM - [id number] - [id number] Implanted [id number] Screw REDAPT 25MM LOCKING SCREW Implanted Screw REDAPT 20MM LOCKING SCREW Implanted Screw SCREW ACET 6.5X25MM SPHERE - [id number] Implanted Screw SCREW ACET 6.5X40MM SPHERE - [id number] Implanted Implant 50MM OD REDAPT MODULAR SHELL Implanted Screw REDAPT 20MM LOCKING SCREW Implanted Implant OXINIUM DH DUAL MOBILITY LINER Implanted Orthopedic Implant STEM DISTAL JOSH SPL [id number] - [id number] Implanted Internal and External Fixation CABLE ORTH COCR 2MM 75MM TROCH - [id number] Implanted Orthopedic Implant BODY PROX JOSH C STD 60MM - [id number] Implanted Joint Knee HEAD FEM BIOLOXD OPTION 28MM - [id number] Implanted Implant TAPER SLEEVE Implanted Orthopedic Implant DUAL MOBILITY INSERT Implanted Staff: Front Office Help: Meron Madden RN Relief Front Office Help: Zakia Joya RN; Ronnie Cooley RN; Monica Willard RN Relief Scrub: Anuja Ríos RN; Jen Peralta Scrub Person: Branden Barton Findings: See full op report Complications: None; patient tolerated the procedure well. Specimens Collected: Order Name Source Comment Collection Info Order Time AEROBIC AND ANAEROBIC CULTURE WITH STAIN Hip, Left Pre-op diagnosis: Failed orthopedic implant, initial encounter ([facility]) [T84.498A] Collected By: Berry Mares MD 10/10/2022 4:38 PM AEROBIC AND ANAEROBIC CULTURE WITH STAIN Hip, Left Pre-op diagnosis: Failed orthopedic implant, initial encounter ([facility]) [T84.498A] Collected By: Berry Mares MD 10/10/2022 4:59 PM AEROBIC AND ANAEROBIC CULTURE WITH STAIN Hip, Left Pre-op diagnosis: Failed orthopedic implant, initial encounter ([facility]) [T84.498A] Collected By: Berry Mares MD 10/10/2022 [...] Pre-op diagnosis: Failed orthopedic implant, initial encounter ([facility]) [T84.498A] Collected By: Berry Mares MD 10/10/2022 [...] appropriate. Patient is from [facility] as a bed hold, however will need [...] appropriate. Patient is from [facility] and will need a precert to return. [...] and revision COSTA. Patient is from [facility] and will need a precert to return. [...] EDT Referral placed to SNF[facility] via [facility] per TCC request. Await review and response regarding ability to accept. TCC notified. * Care Coordination - Holli Bhagat RN - 10/04/2022 12:54 PM EDT Care Managment Initial Assessment Date: 10/04/2022 Patient Name: Donna Marsh : 1955 Patient Information Source of Information: Patient Cognition/Language: WFL - Within Functional Limits Permission given to speak with patient claim representative/caregiver as indicated: Confirmation of Payer with patient/family: Yes Payer Name: Leandra BUTTERFIELD : No Confirmation of Primary Care Physician: Confirmed PCP Name: Dr Cici Calderon Seen in last 2 years?: Yes Primary Caregiver: Self If assistance needed, confirmed caregiver ready, willing and able to care for patient at discharge:Yes Confirmed with: Sherry elkins [facility] staff via [facility] Living Arrangements Current Residence: Number of Floors Number of Entry Steps: Bed/Bath Levels: Facility: Nursing Facility Skilled Facility Name: [facility] Plan to Return: Yes Lives with: (Currently at SNF) Support Systems: Spouse/significant other, Children, Family members, Friends/neighbors (SNF staff and residents) Activities of Daily Living Ambulation: Assistance Bathing/Dressing: Assistance Elimination/Continence/Toileting: Assistance Feeding: Independent Who Assists with Activities of Daily Living: [facility] staff Instrumental Activities of Daily Living Prescription Coverage: Yes Pharmacy Used: [facility] Medication Management: ([facility] nurses manage meds) Transportation/Shopping: Independent Transportation Mode: Car Needs Assistance with Transportation at Discharge: Yes (REELING OPERATOR will have to set up return transport) Meal Preparation: Assistance Provider Meal Prep Assistance Provider Name: Bea small [facility] staff Laundry/Cleaning: Assistance Provider Laundry/Cleaning Assistance Provider Name: Sherry [facility] staff Finances/Bill Paying: Assistance Provider Finances/Bill Payer Assistance Provider Name: Eduardo Communication: Independent Types of Care Services/Equipment Utilized Care Services: Dialysis Type: Durable Medical Equipment: Walker, Cane, Wheelchair (standard or power), Raised Toilet Seat, ShowerSeat (Grab bars) Patient's Goal/Discharge Plan Patient expects to be discharged to: Return to [facility] Discharge Planning Actions: Continue to follow, [facility] Facility referral indicated [place] of choice: [place] of choice discussed Patient's Choice Rights and [employer] and Collaborative Relationships Disclosed as Indicated for Post-Acute Care: Yes Interdisciplinary Team Engagement: PT/OT Social Work Referral for: Additional Information: Introduced self and role. Patient is admitted (ED roomed) for severe left hip pain after COSTA. Sent back from [facility] for surgery re- eval, awaiting notes to determine plan. Patientis currently staying at [facility] to set up return transportation. Sees Dr Cici Calderon (PCP) routinely. Has insurance and prescription coverage, uses [facility]. Patient denies any financial difficulties. Plan to return to SNF when medically stable. Will need pre-cert prior to return. Patient verbalizes understanding and is in agreement with POC. Holli Bhagat RN documented in this [facility]08-30-2023 [facility] 10-10-2022 [facility]08-29-2023 Hospital Discharge instructions * Discharge Instructions* Luis Causey MD - 10/10/2022 7:49 PM EDT Images from the original note were not included. Dr. Berry Mares Adult Hip and Knee Reconstruction [phone] Total Hip Discharge Instruction Physical Therapy Physical [...] are taking narcotic pain medicine such as Clancy, Percocet, Hydrocodone or Oxycodone. Question: When can [...] Complication of internal hip prosthesis, initial encounter ([facility]) Failed orthopedic implant ([facility]) ([facility]) Left hip pain Isolation/Infection: No active isolations [...] Minimal assistance Toileting Total assistance Feeding Independent Levi Maker Independent Med Delivery yes Wound Care Documentation [...] Score: @READMISSIONRISKDETAILS@ Discharging to Facility/ Agency Name: [address] [address] Address: Fax: Dialysis Facility (if applicable) Name: Address: Dialysis Schedule: Phone: Fax: Medical Accounts Receivable Specialist/Personal Lines Underwriter signature: ICIAN SECTION Prognosis: fair Condition at Discharge: stable Rehab Potential (if transferring to Rehab): fair Recommended Labs or Other Treatments After Discharge: none Physician Certification: I certify the above information and transfer of Donna Marsh is necessaryfor the continuing treatment of the diagnosis listed and that she requires [facility] facilityfor less than 30 days. Update Admission H&P: No change in H&P PHYSICIAN SIGNATURE: documented in this [facility]08-29-2023 [facility] 10-10-2022 [facility]08-25-2023 Miscellaneous Notes* Telephone Encounter - Regina Oden DO - 10/06/2022 5:39 PM EDT I spoke with Joo and answered all her questions that I could. Regina Oden DO * Telephone Encounter - Cristina Graham LPN - 10/06/2022 8:38 AM EDT Patient's daughter is aware that patient cannot have the labs ordered by Dr. Oden at [facility]. We will wait until she is able to come in and have labs drawn. Dr. Oden- patient's daughter, Joo, is asking if you could call her? [phone]. Cristina Graham LPN * Telephone Encounter - Daksha Tang - 10/05/2022 10:27 AM EDT Daughter, Joo called in stating patient has been admitted into [facility]. Please advise if orders can be [...] provider on the labs prior to scheduling. health information technologist will call this PSS back once labs [...] yet. Janie Parker LPN [facility] Consult note* Yana Morgan NP - 10/06/2022 12:12 PM EDTAssociated Order(s): IP WOUND CARE NURSE CONSULT TO EVAL Images from the original note were not included. [facility] Wound Care CONSULT Note Donna Marsh AGE: [...] ortho office yesterday, she was sent to [place] ED for further evaluation, imaging, and treatment. [...] by mouth. ergocalciferol (Vitamin D-2) 1.25 MG (53289 UT) capsule Take by mouth. fexofenadine (Roc) [...] to follow Recommend to follow up at [facility] wound care center after hospital discharge. Any [...] cysts but not entirely included in the nnpuk-we-xryr. These were present on the CT from [...] supplies for repair are available, transfer to [facility] is needed. Transfer has been initiated by the primary service. * Raman Carvalho MD - 10/04/2022 12:30 PM EDTAssociated Order(s): IP CONSULT TO GENERAL SURGERY Images from the original note were not included. Department of Surgery [facility] Raman Carvalho MD, MPH Consult Note [...] with Orthopedic Surgery as a referral from [facility]. She recently fell this past July and was cared for in [place]. She underwent a surgical intervention to address [...] cephalomedullary nail with migration, provoking consult to [facility] Orthopedic specialists. After imaging was obtained in the office yesterday, she was sent to [place] ED for further evaluation, imaging, and treatment. [...] , Rfl: ergocalciferol (Vitamin D-2) 1.25 MG (83060 UT) capsule, Take by mouth., Disp: , [...] 10/03/2022 Patient Name: DONNA MARSH : 1955 [id number] Exam Date/Time: 10/03/2022 20:26 Procedure: CT PELVIS ANGIO W AND WO IV CONTRAST Ordering Provider: EMS, [facility] Reason For Exam: hardware failure, surgical [...] cysts but not entirely included in the egbvv-lq-yypw. These were present on the CT from [...] will update accordingly pending further discussion. -Regardless, [facility] Surgery will be on standby if operative [...] This note may have been dictated using [employer] Edition 2.6 and/or [employer] Voice Recognition Feature. The document was proofread; however, unrecognized voice recognition clinical research administrator errors may be present. Raman Carvalho MD 10/04/2022 12:30 PM * Lydia Harris MD - 10/03/2022 5:57 PM EDT Ortho Consult Patient: Donna Marsh Date of : 1955 Acct: [id number] PCP: CICI CALDERON Date of Admission: 10/03/2022 Date of Service: Pt seen/examined on 10/03/2022 Chief Complaint: Left hip pain History Of Present Illness: 66 y.o. female with a history significant for A-fib, bipolar, dementia,hypertension, coronary artery disease, type 2 diabetes presenting as a referral from [facility]. Back in late July, Donna suffered a ground-level fall resulting in a peritrochanteric left hipfracture that was treated with a short cephalomedullary nail with Dr. Dereck Ramirez of [facility] on 08/06/2022. Per all reports, surgery [...] process. She was ultimately [facility] to a prison and ultimately followed up with Dr. Regina [...] Historical Provider, ergocalciferol (Vitamin D-2) 1.25 MG (01330 UT) capsule Take by mouth. Historical Provider, [...] , Rfl: ergocalciferol (Vitamin D-2) 1.25 MG (20576 UT) capsule, Take by mouth., Disp: , [...] clearance in case of OR, page ortho ribbon blocker with clearance status Lydia Harris MD PGY3 [...] as well as medical complications such as PR, stroke, PE, DVT, and even . Discussed in this case in particular the elevated risk for vascular injury. Vascular team will be assisting duringthis case. Patient was given opportunity to ask questions and consider her options. Family was available for discussion as well. She ultimately elected to proceed with surgery. No guarantees were stated or implied. documented in this [facility]08-24-2023 [facility] 10-05-2022 NoteReferral placed to [facility] [place] via [facility] per [facility] request. Await review and response regarding ability to accept. TCC notified. [facility]08-24-2023 History and physical note* Senia Griffith MD [...] admitted from orthopedic surgery outpatient office to [place]. After imaging was obtained in the office yesterday, she was sent to [place] ED for further evaluation, imaging, and treatment. [...] cysts but not entirely included in the fbope-og-ndie. These were present on the CT from [...] by mouth. ergocalciferol (Vitamin D-2) 1.25 MG (95311 UT) capsule Take by mouth. fexofenadine (Roc) [...] patient's PCP. Thank you. documented in this [facility]08-22-2023 [facility] 10-03-2022 Emergency department Note* Vineet Mckeon MD - 10/03/2022 5:27 PM EDT Emergency Department Encounter [facility] ED Patient: Donna Marsh : 1955 Date [...] pain in her left foot. Focused exam: Quziibe-lpdm-jwbqzqlod, no acute distress, nontoxic-appearing HEENT- atraumatic, normocephalic [...] is okay keeping the patient here at [place]. She will be admitted for further management/surgery. [...] provider for clarification.) Vineet Mckeon MD Acute [facility] Vineet Mckeon MD 10/03/222013 * Rudy Quintana [...] by mouth. ERGOCALCIFEROL (VITAMIN D-2) 1.25 MG (23837 UT) CAPSULE Take by mouth. FEXOFENADINE (ROC) [...] Alcohol use: No Drug use: No SCREENINGS [place] Coma Scale Best Eye Response: Spontaneous Best Verbal Response: Oriented Best Motor Response: Follows commands [place] Coma Scale Score: 15 PHYSICAL EXAM ED [...] equal to 30 ng/mL Test performed by Tapp[employer] Competitive Immunoassay, measuring Total Vitamin D, not individual fractions. POCT GLUCOSE METER UNSOLICITED RESULTS - Normal Glucose 98 Narrative: Performed by: [facility], [address] [place] [id number] CLIA ID: [id number] BLOOD TYPE AND SCREEN GEL ABO Grouping O Antibody Screen NEG Rh Type POS CONFIRMATORY ABO/RH ABO Grouping O Rh Type POS HEMOGLOBIN A1C CBC WITH AUTO DIFFERENTIAL COMPREHENSIVE METABOLIC PANEL WITH MG REFLEX Narrative: The following orders were created for panel order Comprehensive Metabolic Panel w/ Mg Reflex. Procedure Abnormality Status --------- ------ Comprehensive metabolic p...[[id number]] Please view results for these tests on [...] also reviewed external records from Inpatient notes [facility]. I discussed their care with Wireless Communications Engineer orthopedics. The patient will be Admitted. Patient is in agreement with this plan. PROCEDURES: Unless otherwise noted below, none Procedures CRITICAL CARE TIME FINAL IMPRESSION 1. Complication of internal hip prosthesis, initial encounter ([facility]) DISPOSITION Admit 10/03/2022 07:11:13 PM PATIENT REFERRED [...] Rudy Quintana PA-C 10/03/222149 documented in this [facility]08-22-2023 History of Present illness Narrative* Cici Martinez MD - 10/03/2022 2:10 PM EDT [facility] [address] [place] [address] [place] [id number] Dept: [phone] Dept Chief Complaint Patient presents with New Patient Left hip possible metastatic cancer SUBJECTIVE HPI Donna is a 66-year-old female with a history significant for A-fib, bipolar, dementia, hypertension,coronary artery disease, type 2 diabetes presenting as a referral from [place] [facility]. Back inlate July, Donna suffered a ground- level fall resulting in a non-displaced peritrochanteric left hipfracture that was treated with a short cephalomedullary nail with Dr. Dereck Ramirez of [facility] on 08/06/2022. Per all reports, surgery [...] process. She was ultimately discharged to a prison and ultimately followed up with Dr. Regina [...] List Diagnosis Date Noted Failed orthopedic implant ([facility]) (HCC) 10/03/2022 Left hip pain 10/03/2022 Allergies Allergen Reactions Codeine Other reaction(s): Intolerance, Itching Itching Fentanyl Other reaction(s): confusion Morphine Other Loss of Memory Nsaids Rash No family history on file. Past Medical History: Diagnosis Date Bipolar 1 disorder ([facility]) Diabetes mellitus (HCC) Hyperlipidemia Hypertension Neuropathy Social [...] by mouth. ergocalciferol (Vitamin D-2) 1.25 MG (76711 UT) capsule Take by mouth. fexofenadine (Roc) [...] RLE. Bonemarrow and bone biopst perfromed at [facility] August 2022 Skin: Negative for color [...] reviewed. Constitutional: Appearance: Normal appearance. Positioned on gurmarkesan Cardiovascular: Rate and Rhythm: Normal rate. Pulmonary: [...] callus formation, and extreme varus. CT abdomen/pelvis ([facility], 08/14/2022): Status post left hip cephalomedullary nail, hardware intact but noted possible superior cut out of the lag screw. Severe osteoporosis throughout the pelvis and lumbosacral spine. Numerous sclerotic/lytic lesions throughout the bony pelvis and lumbar spine with numerous compression fractures in various stages of healing. ASSESSMENT 1. Failed orthopedic implant, initial encounter ([facility]) 2. Left hip pain 66-year-old female with [...] attempted to have her direct admitted to [facility] however this was not available. Due to the nature of her problem which will likely require an arthroplasty solution, [facility] we will obtain an updated CT scan to assess the position of her failed hardware. I did not feel that having her return to her prison in this state was in her best [...] 10/03/2022 at 5:50 PM documented in this [facility]08-17-2023 Miscellaneous Notes* Telephone Encounter - Cristina Graham LPN - 09/28/2022 8:37 AM EDT Attempted to contact Sue at number listed below, not a working number. The CT in question was requested by the IR physician at [facility] and is not needed now. Cristina Graham LPN * Telephone Encounter - Daksha Tang - 09/27/2022 3:56 PM EDT Sue called stating she has a CT order that states needs to be completed prior to biopsy. She states patient had biopsy on 09/[address] still needs to be completed. Please advise her at [phone] [facility] Miscellaneous Notes* Telephone Encounter - Cristina Graham LPN - 09/18/2022 3:49 PM EDT Order revised and re-faxed to [facility]. Cristina Graham LPN * Telephone Encounter - Kanwal Mccarthy - 09/18/2022 1:38 PM EDT Nurse calling from [facility] Green Top Tube for Flow CYTOMETRY Provider at [facility] thinks it should be ordered with flow. The order that was sent has flow crossed off. Please reach out to the nurse Teresa- [phone] (is in till 2pm today.Will be in in the morning). Ok to just fax new order [phone] documented in this [facility]-2023 Miscellaneous Notes* Telephone Encounter - Daksha Tang - 08/18/2022 1:[address] and scheduled patient. Found several Dr. Tamiko Quigley's. Please update the referring provider in [...] in pt to return call folder at [facility] desk documented in this [facility]Ohio[facility]-2023 Discharge summary Author Tamiko Quigley [facility] August 16, 2022 3:37pm Note Date/Time August 16, 2022 3:15p m [facility] Medical Records Department [address] [place] [address] Discharge Summary 08/16/22 1513 MR#: [id number] Acct: [id number] Name: DONNA MARSH Rep #:[id number] : 1955 66 From: Tamiko Quigley DO PCP: ORESTES Cano Status:ADM IN Location: [facility] GQL261- 1 Providers Date of Admission: 08/05/22 Date of Discharge: 08/16/22 Primary Care Physician: ORESTES Cano Consultations 08/14/22 13:25 Consult: Oncology/Hematology Routine Consulting Provider: Home Miller Reason for Consult: Metastatic dz of unknown primary EMERGENT Consult: No MD Notified: Yes Date Notified: 08/14/22 Time Notified: 13:25 Method of Notification: paged via stranding machine operator helper 08/15/22 07:08 Consult: Inspectors And Regulatory Officers / Pulmonary Medicine Routine Consulting Provider: [facility] Reason for Consult: Empyema EMERGENT Consult: No [...] who presented to the emergency department at [facility] on 08/05/2022 after a fall related [...] Joo who is her healthcare power of disability attorney. Discharge diagnoses: Acute left intertrochanteric fracture [...] Neut % (Auto) 69.7, Lymph % (Auto)19.3, Hickman % (Auto) 7.9, Eos % (Auto) 1.8, [...] in before D/C Order can be placed): [facility] Facility Charges/Coding Visit Charges Inpatient E&M: 53700 SNF Disch >30 Min 08/16/22 1537 <Electronically signed by Tamiko Quigley DO> Cosigner Signature (if applicable): CC: INDUSTRIAL WASTE INSPECTOR-C Rudy Boyer; Dr. Tamiko Quigley DO; Dr. Dereck Ramirez DO; Dr. Quin DO~ Signed [facility] Work Phone: 1(857) 414-627607-05-2023 Progress note Author Dann Linn [facility] August 16, 2022 3:16pm Note Date/Time August 16, 2022 3:16p m [facility] Medical Records Department [address] [place] [address] Progress Note - Inspectors And Regulatory Officers 08/16/22 1503 MR#: [id number] Acct: [id number] Name: DONNA MARSH Rep #:[id number] : 1955 66 From: Dann Linn MD PCP: ORESTES Cano Status:ADM IN Location: [place] [address]- 1 Assessment & Plan Assessment/Plan (1) Pleural [...] Neut % (Auto) 69.7, Lymph % (Auto)19.3, Hickman % (Auto) 7.9, Eos % (Auto) 1.8, [...] and/or motivation. Charges/Coding Visit Charges Inpatient E&M: 41473 Subs Hosp L2 08/16/22 1516 <Electronically signed by Dann Linn MD> Cosigner Signature (if applicable): CC: ~ Signed [facility] Work Phone: 1(562) 589-301607-05-2023 Discharge summary Author Tamiko Quigley [facility] August 16, 2022 3:12pm Note Date/Time August 16, 2022 3:12p m [facility] Medical Records Department [address] [place] [address] Transfer to [facility] MR#: [id number] Acct: [id number] Name: DONNA MARSH Rep #:[id number] : 1955 66 From: Tamiko Quigley DO PCP: ORESTES Cano Status:ADM IN Certification of patient admission REQUIRED AT TIME OF ADMISSION. I CERTIFY THAT POST-HOSPITAL ECF SERVICES ARE REQUIRED TO BE GIVEN ON AN IN-PATIENT BASIS BECAUSE OF THE ABOVE NAMED PATIENT'S NEED FOR INTERMEDIATE CARE ON A CONTINUING BASIS FOR THE [...] Cosigner Signature (if applicable): CC: ORESTES Wyatt; INDUSTRIAL WASTE INSPECTORAnneC Rudy Boyer; Dr. Filemon Coffman MD; Dr. Raúl DO; Dr. Home Valverde MD; Dr. Home Miller MD; Dr. Dann Linn MD; Dr. John Short DO; Dr. Prem Toro MD; Dr. Floyd Kelley MD~ [facility] Work Phone: 1(196) 609-255907-05-2023 Consult note Author Gilberto Galvez [facility] August 16, 2022 11:38am Note Date/Time August 16, 2022 11:38 am [facility] Medical Records Department [address] [place] [address] Consultation - Infectious Dx 08/16/22 1134 MR#: [id number] Acct: [id number] Name: DONNA MARSH Rep #:[id number] : 1955 66 From: Gilberto Galvez MD PCP: ORESTES Cano Status:ADM IN Location: [place] [id number] 1 Assessment & Plan Assessment/Plan (1) Pleural [...] seen by pulmonary service on this admission. [facility] Medical History Anxiety Atrial fibrillation Back pain [...] Neut % (Auto) 69.7, Lymph % (Auto)19.3, Hickman % (Auto) 7.9, Eos % (Auto) 1.8, [...] Galvez MD> Cosigner Signature (if applicable): CC: INDUSTRIAL WASTE INSPECTOR-C Cindy Wyatt; INDUSTRIAL WASTE INSPECTOR-C Rudy Boyer; Dr. Filemon Coffman MD; Dr. Raúl DO; Dr. Home Valverde MD; Dr. Home Miller MD; Dr. Dann Linn MD; Dr. John Short DO; Dr. Prem Toro MD; Dr. Floyd Kelley MD~ Signed [facility] Work Phone: 1(752) 483-751607-04-2023 Consult note Author [facility] August 15, 2022 4:25pm Note Date/Time August 15, 2022 3:48p [facility] Medical Records Department [address] [place] [address] Consultation - Inspectors And Regulatory Officers 08/15/22 1524 MR#: [id number] Acct: [id number] Name: DONNA MARSH Rep #:[id number] : 1955 66 From: Dann Linn MD PCP: ORESTES Cano Status:ADM IN [facility] [address] Dann Linn [...] Linn MD> Cosigner Signature (if applicable): cc: INDUSTRIAL WASTE INSPECTOR-C Cindy Wyatt; INDUSTRIAL WASTE INSPECTOR-C Rudy Boyer; Dr. Filemon Coffman MD; Dr. [...] and known vertebral compression fractures from [address] [facility] also showed large hematoma behind [...] aspiration and falls occasionally. [facility] was asked to comment on whether she has empyema. Past family social history, medications allergies were reviewed. 12 system review is negative except as above. [facility] Medical History Anxiety Atrial fibrillation Back pain [...] RDW Coeff of Gerhard 16.3 H, Plt [id number], MPV 9.9, Immature Gran % (Auto) 1.500 H, Neut % (Auto) 77.7 H, Lymph % (Auto) 12.8 L, Hickman % (Auto) 6.5, Eos % (Auto) 1.4, [...] 7:45 EDT Reading Location ID and State: [facility] / [place] , Service support , Charges/Coding Visit Charges Inpatient E&M: 23268 Init Hosp L3 08/15/22 1621 <Electronically signed by Dann Linn MD> Cosigner Signature (if applicable): CC: ORESTES Wyatt; INDUSTRIAL WASTE INSPECTOR-C Rudy Boyer; Dr. Filemon Coffman MD; Dr. Raúl DO; Dr. Home Valverde MD; Dr. Home Miller MD; Dr. Dann Linn MD; Dr. John Short DO; Dr. Floyd Kelley MD~ Signed [facility] Work Phone: 1(551) 382-113107-04-2023 Progress note Author Tamiko [facility] August 15, 2022 1:14pm Note Date/Time August 15, 2022 1:09p [facility] Medical Records Department [address] [place] [address] Progress Note - Hospitalist 08/15/22 1301 MR#: [id number] Acct: [id number] Name: DONNA MARSH Rep #:[id number] : 1955 66 From: Tamiko Quigley DO PCP: ORESTES Cano Status:ADM IN Location: [place] [address]- 1 Reason for Visit Reason for Visit: [...] RDW Coeff of Gerhard 16.3 H, Plt [id number], MPV 9.9, Immature Gran % (Auto) 1.500 H, Neut % (Auto) 77.7 H, Lymph % (Auto) 12.8 L, Hickman % (Auto) 6.5, Eos % (Auto) 1.4, [...] 48 hours Charges/Coding Visit Charges Inpatient E&M: 78688 Subs Hosp L2 08/15/22 1314 <Electronically signed by Tamiko Quigley DO> Cosigner Signature (if applicable): CC: ~ Signed [facility] Work Phone: 1(231) 185-605907-03-2023 Consult note Author Home Miller [facility] August 14, 2022 6:11pm Note Date/Time August 14, 2022 5:51p m [facility] [address] [place] [address] Consultation - Oncology IP 08/14/22 2244 MR#: [id number] Acct: [id number] Name: DONNA MARSH Rep #:[id number] : 1955 66 From: Home Miller MD PCP: ORESTES Cano Status:ADM IN [facility] Assessment & Plan Assessment/Plan (1) [...] is now sedated. Advanced Directives Power of Domestic Maid: No Living Will: No PFSH Medical History [...] Clarity Clear, Urine pH 6.0, Ur Specific [place] 1.015, Urine Protein 15 H, Urine Glucose [...] 80.8 H, Lymph % (Auto) 8.2 L, Hickman % (Auto) 6.6, Eos % (Auto) 1.7, [...] Charges/Coding Visit Charges Office Visits / Consults: 32517 IP Consult L3 08/14/22 1811 <Electronically signed by Home Miller MD> CC: ORESTES Boyer; Dr. Hmoe Valverde MD; Dr. Home Miller MD; Dr. John Short, DO ~ Signed [facility] Work Phone: 1(486) 177-676607-03-2023 Progress note Author Tamiko Quigley [facility] August 14, 2022 3:04pm Note Date/Time August 14, 2022 3:04p m [facility] Medical Records Department [address] [place] [address] Progress Note - Hospitalist 08/14/22 1441 MR#: [id number] Acct: [id number] Name: DONNA MARSH Rep #:[id number] : 1955 66 From: Tamiko Quigley DO PCP: ORESTES Cano Status:ADM IN Location: [place] [address]- 1 Reason for Visit Reason for Visit: Fall with left hip pain Subjective Subjective Mrs. Marsh is a 66-year-old white female who presented to the emergency department at [facility] on 08/05/2022 after a fall related [...] Clarity Clear, Urine pH 6.0, Ur Specific [place] 1.015, Urine Protein 15 H, Urine Glucose [...] 80.8 H, Lymph % (Auto) 8.2 L, Hickman % (Auto) 6.6, Eos % (Auto) 1.7, [...] contrast for further evaluation. Electronically Signed: Gallito Criosstomo MD at 17:25 EDT , ADDENDUM: 08/13/22 [...] -Full code Charges/Coding Visit Charges Inpatient E&M: 52327 Subs Hosp L3 08/14/22 1504 <Electronically signed by Tamiko Quigley DO> Cosigner Signature (if applicable): CC: ~ Signed [facility] Work Phone: 1(703) 623-171607-02-2023 Progress note Author John [facility] institutem[facility] August 13, 2022 7:33pm Note Date/Time August 13, 2022 6:00p [facility] Medical Records Department [address] [place] [address] Progress Note - Hospitalist 08/13/22 1756 MR#: [id number] Acct: [id number] Name: DONNA MARSH Rep #:[id number] : 1955 66 From: John Short DO PCP: ORESTES Cano Status:ADM IN Location: [place] [address] Reason for Visit Reason for Visit: Diagnoses [...] 82.8 H, Lymph % (Auto) 7.9 L, Hickman % (Auto) 5.6, Eos % (Auto) 1.8, [...] thepatient, she will be placed in a [facility] facility when a bed is available #2 [...] there is also a lytic lesion in C73-ohrbmre will need further work-up concerning this. #12 hypoxia secondary to left pleural effusion and probable CHF-again patient will be placed on IV Lasix and echocardiogram will be obtained, she will undergothoracentesis tomorrow .Total clinical time spent by myself addressing the patient's medical issues, reviewing all of her data, and collaborating with patient's care team: 55 minutes Charges/Coding Visit Charges Inpatient E&M: 70169 Subs Hosp L3 08/13/22 1806 <Electronically signed [...] Cosigner Signature (if applicable): cc: ~* Signed [facility] Work Phone: 1(211) 447-770307-01-2023 Progress note Author Dereck Ramirez [facility] August 12, 2022 1:09pm Note Date/Time August 12, 2022 1:08p m [facility] Medical Records Department [address] [place] [address] Progress Note - Orthopedic 08/12/22 1304 MR#: [id number] Acct: [id number] Name: DONNA MARSH Rep #:[id number] : 1955 66 From: Dereck chandra DO PCP: ORESTES Cano Status:ADM IN Location: [place] [address] Subjective Subjective Patient seen and examined. Mental [...] Cosigner Signature (if applicable): CC: ~ Signed [facility] Work Phone: 1(552) 158-442007-01-2023 Progress note Author John Short [facility] August 12, 2022 12:27pm Note Date/Time August 12, 2022 12:27 pm [facility] Medical Records Department [address] [place] [address] Progress Note - Hospitalist 08/12/22 1225 MR#: [id number] Acct: [id number] Name: DONNA MARSH Rep #:[id number] : 1955 66 From: John Short DO PCP: ORESTES Cano Status:ADM IN Location: [place] [address]- Reason for Visit Reason for Visit: Diagnoses [...] thepatient, she will be placed in a [facility] facility when a bed is available #2 [...] 25 minutes Charges/Coding Visit Charges Inpatient E&M: 84868 Subs Hosp L1 08/12/22 1227 <Electronically signed by John Short DO> Cosigner Signature (if applicable): CC: ~ Signed [facility] Work Phone: 1(134) 670-287806-30-2023 Progress note Author John [facility] August 11, 2022 4:17pm Note Date/Time August 11, 2022 4:09 pm [facility] Medical Records Department [address] [place] [address] Progress Note - Hospitalist 08/11/22 1607 MR#: [id number] Acct: [id number] Name: DONNA MARSH Rep #:[id number] : 1955 66 From: John Short DO PCP: ORESTES Cano Status:ADM IN Location: [place] [address]- 1 Reason for Visit Reason for Visit: [...] therapy worked with the patient today, social work lecturer talk with the patient's daughter about prison placement, the rehab unit has denied patient [...] 76.2 H, Lymph % (Auto) 13.8 L, Hickman % (Auto) 5.7, Eos % (Auto) 2.3, [...] patient, she will be placed in a [facility] facility when a bed is available #2 [...] 25 minutes Charges/Coding Visit Charges Inpatient E&M: 73141 Subs Hosp L1 08/11/22 1617 <Electronically signed by John Short DO> Cosigner Signature (if applicable): CC: ~ Signed [facility] Work Phone: 1(551) 515-718806-30-2023 Progress note Author Dereck Ramirez [facility] August 11, 2022 8:01am Note Date/Time August 11, 2022 8:01 am [facility] Medical Records Department [address] [place] [address] Progress Note - Orthopedic 08/11/22 0757 MR#: [id number] Acct: [id number] Name: DONNA MARSH Rep #:[id number] : 1955 66 From: Dereck chandra DO PCP: ORESTES Cano Status:ADM IN Location: [place] [address] Subjective Subjective Patient seen and examined. Alert [...] 76.2 H, Lymph % (Auto) 13.8 L, Hickman % (Auto) 5.7, Eos % (Auto) 2.3, [...] Cosigner Signature (if applicable): CC: ~ Signed [facility] Work Phone: [phone] Progress note Author Kanwal Aguilar [facility] August 10, 2022 10:56pm Note Date/Time August 10, 2022 10:5 6pm [facility] Medical Records Department [address] [place] [address] Progress Note - Hospitalist 08/10/222253 MR#: [id number] Acct: [id number] Name: DONNA MARSH Rep #:[id number] : 1955 66 From: Kanwal Aguilar MD PCP: NIYAH CanoC Status:ADM IN Location: [place] [address] Hospitalist Note Patient with ongoing persistent pain. No improvement with low dose gabapentin trial from discussion with staff. Notes spasms, trial flexeril with mild improvement from 10/10 to 8/10. Will trial norco x 1 per patient/family agreement with close monitoring of her mental status given prior reported confusion/sedation. 08/10/222255 <Electronically signed by Kanwal Aguilar MD> Cosigner Signature (if applicable): CC: ~ Signed [facility] Work Phone: [phone] Progress note Author Dereck Ramirez [facility] August 10, 2022 5:02pm Note Date/Time August 10, 2022 5:02 pm [facility] Medical Records Department [address] [place] [address] Progress Note - Orthopedic 08/10/221657 MR#: [id number] Acct: [id number] Name: DONNA MARSH Rep #:[id number] : 1955 66 From: Dereck chandra DO PCP: ORESTES Cano Status:ADM IN Location: [place] [address] 1 Subjective Subjective This is a late [...] 74.7 H, Lymph % (Auto) 15.5 L, Hickman % (Auto) 7.7, Eos % (Auto) 1.4, [...] Cosigner Signature (if applicable): CC: ~ Signed [facility] Work Phone: 1(698) 581-813506-29-2023 Progress note Author John Short [facility] August 10, 2022 2:32pm Note Date/Time August 10, 2022 2:33 pm [facility] Medical Records Department [address] [place] [address] Progress Note - Hospitalist 08/10/22 1431 MR#: [id number] Acct: [id number] Name: DONNA MARSH Rep #:[id number] : 1955 66 From: John Short DO PCP: ORESTES Cano Status:ADM IN Location: [place] [address] Reason for Visit Reason for Visit: Diagnoses [...] 74.7 H, Lymph % (Auto) 15.5 L, Hickman % (Auto) 7.7, Eos % (Auto) 1.4, [...] will most likely need placement in a mcc facility versus rehab facility. #2 type 2 [...] 25 minutes Charges/Coding Visit Charges Inpatient E&M: 16612 Subs Hosp L1 08/10/22 1432 <Electronically signed by John Short DO> Cosigner Signature (if applicable): CC: ~ Signed [facility] Work Phone: [phone] Progress note Author Kanwal [facility] August 10, 2022 6:48am Note Date/Time August 10, 2022 6:49 am [facility] Medical Records Department [address] [place] [address] Progress Note - Hospitalist 08/10/22647 MR#: [id number] Acct: [id number] Name: DONNA MARSH Rep #:[id number] : 1955 66 From: Kanwal Aguilar MD PCP: ORESTES Cano Status:ADM IN Location: [place] [address] Hospitalist Note AM Hgb 6.2, steadily decreased s/p OR with suspected blood loss anemia, will order 2 u PRBC and repeat HH following completion. 08/10/22647 <Electronically signed by Kanwal Aguilar MD> Cosigner Signature (if applicable): CC: ~ Signed [facility] Work Phone: [phone] Progress note Author Dereck Ramirez [facility] August 09, 2022 6:55pm Note Date/Time August 09, 2022 6:55 pm [facility] Medical Records Department [address] [place] [address] Progress Note - Orthopedic 08/09/22 185 MR#: [id number] Acct: [id number] Name: DONNA MARSH Rep #:[id number] : 1955 66 From: Dereck chandra DO PCP: ORESTES Cano Status:ADM IN Location: [address] 1 Subjective Subjective Patient seen and [...] 81.2 H, Lymph % (Auto) 9.9 L, Hickman % (Auto) 7.1, Eos % (Auto) 0.6, [...] Cosigner Signature (if applicable): CC: ~ Signed [facility] Work Phone: [phone]) 647-244506-28-2023 Progress note Author John Short [facility] August 09, 2022 3:11pm Note Date/Time August 09, 2022 3:11 pm [facility] Medical Records Department [address] [place] [address] Progress Note - Hospitalist 08/09/22 1506 MR#: [id number] Acct: [id number] Name: DONNA MARSH Rep #:[id number] : 1955 66 From: John Short DO PCP: ORESTES Cano Status:ADM IN Location: [place] [address] Reason for Visit Reason for Visit: Diagnoses [...] 81.2 H, Lymph % (Auto) 9.9 L, Hickman % (Auto) 7.1, Eos % (Auto) 0.6, [...] will most likely need placement in a mcc facility versus rehab facility. #2 type 2 [...] 35 minutes Charges/Coding Visit Charges Inpatient E&M: 88972 Subs Hosp L2 08/09/22 1511 <Electronically signed by John Short DO> Cosigner Signature (if applicable): CC: ~ Signed [facility] Work Phone: [phone]) 493-905706-27-2023 Progress note Author John Short [facility] August 08, 2022 6:38pm Note Date/Time August 08, 2022 6:38 pm [facility] Medical Records Department [address] [place] [address] Progress Note - Hospitalist 08/08/22 1832 MR#: [id number] Acct: [id number] Name: DONNA MARSH Rep #:[id number] : 1955 66 From: John Short DO PCP: ORESTES Cano Status:ADM IN Location: [place] [address] Reason for Visit Reason for Visit: Diagnoses [...] will most likely need placement in a mcc facility versus rehab facility. #2 type 2 [...] 35 minutes Charges/Coding Visit Charges Inpatient E&M: 04806 Subs Hosp L2 08/08/22 1838 <Electronically signed by John Short DO> Cosigner Signature (if applicable): CC: ~ Signed [facility] Work Phone: [phone]) 216-244106-27-2023 Progress note Author Dereck Ramirez [facility] August 08, 2022 5:42pm Note Date/Time August 08, 2022 5:42 pm [facility] Medical Records Department [address] [place] [address] Progress Note - Orthopedic 08/08/22 1737 MR#: [id number] Acct: [id number] Name: DONNA MARSH Rep #:[id number] : 1955 66 From: Dereck chandra DO PCP: ORESTES Cano Status:ADM IN Location: [place] [address] Subjective Subjective Patient seen and examined. Family [...] Cosigner Signature (if applicable): CC: ~ Signed [facility] Work Phone: 1(728) 941-711306-26-2023 Progress note Author John Short [facility] August 07, 2022 7:13pm Note Date/Time August 07, 2022 7:13 pm [facility] Medical Records Department [address] [place] [address] Progress Note - Hospitalist 08/07/22 190 MR#: [id number] Acct: [id number] Name: DONNA MARSH Rep #:[id number] : 1955 66 From: John Short DO PCP: ORESTES Cano Status:ADM IN Location: [place] [address]- 1 Reason for Visit Reason for Visit: [...] to go to a rehab facility or mcc facility for short-term rehab services rather than [...] 84.1 H, Lymph % (Auto) 8.6 L, Hickman % (Auto) 6.6, Eos % (Auto) 0.0, [...] Sl. Cloudy, Urine pH 5.0, Ur Specific [place] 1.015, Urine Protein 30 H, Urine Glucose [...] (Auto) 83.4 H, Lymph % (Auto)9.3 L, Hickman % (Auto) 6.3, Eos % (Auto) 0.1, [...] 21:28 EDT Reading Location ID and State: [facility] / Tel , Service support , [...] 5:20 EDT Reading Location ID and State: [facility] / [place] Tel , Service support , Head/Neck CTA 08/07/22 05:47 IMPRESSION: No hemodynamically significant stenosis in the main intracranial arteries are in the arteries of neck. Electronically Signed: Trevor Farmer MD at 6:23 EDT Reading Location ID and State: [facility] / [place] Tel , Service support , ADDENDUM: 08/07/22 0736 IMPRESSION: No hemodynamically significant stenosis in the main intracranial arteries are in the arteries of neck. N.B. : The above Results were Read Back by Trevor Farmer MD to Home [facility] and understanding confirmed on 08/07/2022 07:29:46 (ET). Electronically Signed: Trevor Farmer MD at 6:23 EDT Reading Location ID and State: [facility] / [place] Tel , Service support , Chest X-Ray [...] 50 minutes Charges/Coding Visit Charges Inpatient E&M: 70888 Subs Hosp L3 08/07/221912 <Electronically signed by John Short DO> Cosigner Signature (if applicable): CC: ~ Signed [facility] Work Phone: [phone] 596-377006-26-2023 Progress note Author Dereck Ramirez [facility] Iveth 26th, 2023 7:13am Note Date/Time August 07, 2022 7:13 am [facility] Medical Records Department [address] [place] [address] Progress Note - Orthopedic 08/07/22705 MR#: [id number] Acct: [id number] Name: DONNA MARSH Rep #:[id number] : 1955 66 From: Dereck chandra DO PCP: ORESTES Cano Status:ADM IN Location: [place] [address] 1 Subjective Subjective Patient seen and examined. [...] 84.1 H, Lymph % (Auto) 8.6 L, Hickman % (Auto) 6.6, Eos % (Auto) 0.0, [...] 5:20 EDT Reading Location ID and State: [facility] / [place] Tel , Service support , ADDENDUM: 08/07/22 0536 IMPRESSION: Negative Brain CT without contrast. N.B. : The above Results were Read Back by Trevor Farmer MD to [facility] MD, and understanding confirmed on 08/07/2022 05:29:17 (ET). Electronically Signed: Trveor Farmer MD at 5:20 EDT Reading Location ID and State: [facility] / [place] Tel , Service support , Head/Neck CTA [...] Cosigner Signature (if applicable): CC: ~ Signed [facility] Work Phone: [phone] 396-959706-26-2023 Progress note Author Home Valverde [facility] August 07, 2022 6:47am Note Date/Time August 07, 2022 6:09 am [facility] Medical Records Department [address] [place] [address] Progress Note - Hospitalist 08/07/22 06 MR#: [id number] Acct: [id number] Name: DONNA MARSH Rep #:[id number] : 1955 66 From: Home Valverde MD PCP: ORESTES Cano Status:ADM IN Location: [place] [address] Reason for Visit Reason for Visit: [...] 85.1 H, Lymph % (Auto) 9.0 L, Hickman % (Auto) 4.6, Eos % (Auto) 0.3, [...] 84.1 H, Lymph % (Auto) 8.6 L, Hickman % (Auto) 6.6, Eos % (Auto) 0.0, [...] 5:20 EDT Reading Location ID and State: [facility] / [place] Tel , Service support , [...] Cosigner Signature (if applicable): CC: ~ Signed [facility] Work Phone: [phone]) 501-855606-25-2023 Progress note Author [facility] August 06, 2022 5:23pm Note Date/Time August 06, 2022 5:05 pm [facility] Medical Records Department [address] [place] [address] Progress Note - Hospitalist 08/06/22 1701 MR#: [id number] Acct: [id number] Name: DONNA MARSH Rep #:[id number] : 1955 66 From: John Short DO PCP: ORESTES Cano Status:ADM [facility] Reason for Visit Reason for Visit: Diagnoses [...] like the patient to go to short-term mcc when she is discharged from the hospital, [...] 89.8 H, Lymph % (Auto) 6.0 L, Hickman % (Auto) 3.2, Eos % (Auto) 0.2, [...] 85.1 H, Lymph % (Auto) 9.0 L, Hickman % (Auto) 4.6, Eos % (Auto) 0.3, [...] 50 minutes Charges/Coding Visit Charges Inpatient E&M: 73545 Subs Hosp L2 08/06/221722 <Electronically signed by John Short DO> Cosigner Signature (if applicable): CC: ~ Signed [facility] Work Phone: [phone]) [phone] Procedure [facility] 08-05-2022 History and physical note Author Home Valverde [facility] August 05, 2022 9:52pm Note Date/Time August 05, 2022 8:27 pm [facility] Medical Records Department [address] [place] [address] H&P Exam - Hospitalist 08/05/222026 MR#: [id number] Acct: [id number] Name: DONNA MARSH Rep #:[id number] : 1955 66 From: Home Valverde MD PCP: ORESTES Cano Status:ADM IN [place] [facility] [place]-[place] HPI - General General Date of Admission: [...] medical marijuana. Patient denies any other symptoms. [facility] Medical History Essential (primary) hypertension Hyperlipidemia Nonobstructive [...] SCDs ordered. Charges/Coding Visit Charges Inpatient E&M: 85429 Init Hosp L3 08/05/222151 <Electronically signed by Home Valverde MD> Cosigner Signature (if applicable): CC: ORESTES Boyer; Dr. Home Valverde MD~ Signed [facility] Work Phone: [phone] 145-647506-24-2023 Discharge summary Author Nico Arce [facility] August 05, 2022 9:02pm Note Date/Time August 05, 2022 6:09 pm [facility] Medical Records Department [address] [place] [address] Emergency Department Summary 08/05/22 MR#: [id number] Acct: [id number] Name: DONNA MARSH Rep #:[id number] : 1955 66 From: Monica VELÁSQUEZ PCP: ORESTES Cano Status:ADM IN Location[place] [facility] IK057-5 HPI <DIDIER Ohara - Last Filed: 08/05/22 [...] Fall History of Present Illness Informant: patient [facility] <DIDIER Ohara - Last Filed: 08/05/22 20:31> [facility] Medical History (Updated 08/05/22 @ 21:02 by [...] 89.8 H Lymph % (Auto) 6.0 L Hickman % (Auto) 3.2 Eos % (Auto) 0.2 [...] Arce MD - Last Filed: 08/05/22 21:02> [facility] Lab Data Attestation: I reviewed the [...] 89.8 H Lymph % (Auto) 6.0 L Hickman % (Auto) 3.2 Eos % (Auto) 0.2 [...] 20:10 EDT Reading Location ID and State: [facility] / [place] Tel [phone], Service support , Rhythm Strip Rhythm Strip: Sinus Rhythm Rate: 90 Ectopy: None EKG Initial EKG: Attestation: I personally reviewed and interpreted this EKG as follows: Interpretation: Sinus Rhythm and No Acute Injury Pattern Management Discussion w/another healthcare provider: Hospitalist and Wireless Communications Engineer Treatment and Re-Evaluation Narrative: Seen and evaluated independently and in conjunction with physician assistant auto center manager. Agree with notes above unless documented [...] Rudy Boyer Disposition Disposition: Acute Care Hospital [facility] What to do if you have Problems For any increased pain, shortness of breath, bleeding, nausea or vomiting, chestpain, or any unexpected problems, contact your Primary Care Provider. Call [facility] ([phone]) or report to the closest Emergency Room. Call 911 if necessary. 08/05/222030 <Electronically signed by Monica VELÁSQUEZ> Cosigner Signature (if applicable): 08/05/222101 <Electronically signed by Nico Arce MD> CC: CRISTOPHER-Madelyn Boyer ~ Signed [facility] Work Phone: [phone] Consult note Author Dereck Ramirez [facility] August 05, 2022 8:36pm Note Date/Time August 05, 2022 8:34 pm [facility] Medical Records Department [address] [place] [address] Consultation - Orthopedics 08/05/222026 MR#: [id number] Acct: [id number] Name: DONNA MARSH Rep #:[id number] : 1955 66 From: Dereck chandra DO [...] vomiting, chest pain or shortness of breath. [facility] Medical History (Updated 08/05/22 @ 20:33 by [...] 20:10 EDT Reading Location ID and State: [facility] / [place] Tel [phone], Service support , Assessment & Plan Assessment/Plan [...] Signature (if applicable): CC: ORESTES Boyer~ Signed [facility] Work Phone: [phone]) 110-198706-24-[address] Arce [facility] August 05, 2022 9:02pm Note Date/Time August 05, 2022 6:09 pm [facility] Medical Records Department [address] [place] [address] Emergency Department Summary 08/05/22 MR#: [id number] Acct: [id number] Name: DONNA MARSH Rep #:[id number] : 1955 66 From: Monica VELÁSQUEZ PCP: ORESTES Cano Status:ADM IN Location: [place] [address]-1 HPI <DIDIER Ohara - Last Filed: 08/05/22 [...] Fall History of Present Illness Informant: patient [facility] <DIDIER Ohara - Last Filed: 08/05/22 20:31> [facility] Medical History (Updated 08/05/22 @ 21:02 by [...] <DIDIER Ohara - Last Filed: 08/05/22 20:31> [facility] Narrative Medical decision making narrative: History gathered [...] 89.8 H Lymph % (Auto) 6.0 L Hickman % (Auto) 3.2 Eos % (Auto) 0.2 [...] Arce MD - Last Filed: 08/05/22 21:02> [facility] Lab Data Attestation: I reviewed the [...] 89.8 H Lymph % (Auto) 6.0 L Hickman % (Auto) 3.2 Eos % (Auto) 0.2 [...] of the left femur. Electronically Signed: Keaton DO Edwin at 20:10 EDT , Rhythm Strip Rhythm Strip: Sinus Rhythm Rate: 90 Ectopy: None EKG Initial EKG: Attestation: I personally reviewed and interpreted this EKG as follows: Interpretation: Sinus Rhythm and No Acute Injury Pattern Management Discussion w/another healthcare provider: Hospitalist and Wireless Communications Engineer Treatment and Re-Evaluation Narrative: Seen and evaluated independently and in conjunction with physician assistant auto center manager. Agree with notes above unless documented [...] Rudy Boyer Disposition Disposition: Acute Care Hospital [facility] What to do if you have Problems For any increased pain, shortness of breath, bleeding, nausea or vomiting, chestpain, or any unexpected problems, contact your Primary Care Provider. Call [facility] ([phone]) or report to the closest Emergency Room. Call 911 if necessary. 08/05/222030 <Electronically signed by Monica VELÁSQUEZ> Cosigner Signature (if applicable): 08/05/222101 <Electronically signed by Nico Arce MD> CC: ORESTES Boyer ~ Signed [facility] Work Phone: [phone]) 617-415806-15-2009 History of Past illness Narrative* Problem Noted Date Diagnosed Date Resolved Date Routine general medical exam ination at a health care facility 07/27/2008 08/03/2012 Overview: 08/28/06200707/27/08 Routine gynecological examination 07/27/2008 08/03/2012 Overview: declines Eating disorder, unspecified 06/25/2006 03/07/2018 documented as of this encounter (statuses as of 08/21/2022) [facility] History of Past illness Narrative* Problem Noted Date Diagnosed Date Resolved Date Routine general medical exam ination at a health care facility 07/27/2008 08/03/2012 Overview: 08/28/06200707/27/08 Routine gynecological examination 07/27/2008 08/03/2012 Overview: declines Eating disorder, unspecified 06/25/2006 03/07/2018 documented as of this encounter (statuses as of 09/19/2022) [facility] History of Past illness Narrative* Problem Noted Date Diagnosed Date Resolved Date Routine general medical exam ination at a health care facility 07/27/2008 08/03/2012 Overview: 08/28/06200707/27/08 Routine gynecological examination 07/27/2008 08/03/2012 Overview: declines Eating disorder, unspecified 06/25/2006 03/07/2018 documented as of this encounter (statuses as of 09/28/2022) [facility] History of Past illness Narrative* Problem Noted Date Diagnosed Date Resolved Date Routine general medical exam ination at a health care facility 07/27/2008 08/03/2012 Overview: 08/28/06200707/27/08 Routine gynecological examination 07/27/2008 08/03/2012 Overview: declines Eating disorder, unspecified 06/25/2006 03/07/2018 documented as of this encounter (statuses as of 10/08/2022) [facility] History of Past illness Narrative* Problem Noted Date Diagnosed Date Resolved Date Routine general medical exam ination at a health care facility 07/27/2008 08/03/2012 Overview: 08/28/06200707/27/08 Routine gynecological examination 07/27/2008 08/03/2012 Overview: declines Eating disorder, unspecified 06/25/2006 03/07/2018 documented as of this encounter (statuses as of 10/19/2022) [place] [address]-15-2009 History of Past illness Narrative* Problem Noted Date Diagnosed Date Resolved Date Routine general medical exam ination at a health care facility 07/27/2008 08/03/2012 Overview: 08/28/06200707/27/08 Routine gynecological examination 07/27/2008 08/03/2012 Overview: declines Eating disorder, unspecified 06/25/2006 03/07/2018 documented as of this encounter (statuses as of 10/20/2022) [facility] History of Past illness Narrative* Problem Noted Date Diagnosed Date Resolved Date Routine general medical exam ination at a health care facility 07/27/2008 08/03/2012 Overview: 08/28/06200707/27/08 Routine gynecological examination 07/27/2008 08/03/2012 Overview: declines Eating disorder, unspecified 06/25/2006 03/07/2018 documented as of this encounter (statuses as of 11/06/2022) [facility] History of Past illness Narrative* Problem Noted Date Diagnosed Date Resolved Date Routine general medical exam ination at a health care facility 07/27/2008 08/03/2012 Overview: 08/28/06200707/27/08 Routine gynecological examination 07/27/2008 08/03/2012 Overview: declines Eating disorder, unspecified 06/25/2006 03/07/2018 documented as of this encounter (statuses as of 11/07/2022) [facility] History of Past illness Narrative* Problem Noted Date Diagnosed Date Resolved Date Routine general medical exam ination at a health care facility 07/27/2008 08/03/2012 Overview: 08/28/06200707/27/08 Routine gynecological examination 07/27/2008 08/03/2012 Overview: declines Eating disorder, unspecified 06/25/2006 03/07/2018 documented as of this encounter (statuses as of 05/22/2023) [facility] Ramirez [facility] August 05, 2022 8:36pm Note Date/Time August 05, 2022 8:34 pm [facility] Medical Records Department [address] [place] [address] Consultation - Orthopedics 08/05/222026 MR#: [id number] Acct: [id number] Name: DONNA MARSH Rep #:[id number] : 1955 66 From: Dereck chandra DO [...] vomiting, chest pain or shortness of breath. [facility] Medical History (Updated 08/05/22 @ 20:33 by [...] 20:07 EDT Reading Location ID and State: [facility] / [place] Tel [phone], Service support , Brain CT 08/05/22 18:20 [...] Ramirez DO> Cosigner Signature (if applicable): CC: INDUSTRIAL WASTE INSPECTORJarad Boyer~ Signed [facility] Work Phone: Evaluation noteNo assessment information available [facility] Work Phone: Evaluation note* Diagnosis Onset Date Resolution Status Degenerative joint disease of right hip noneactive Compression fracture of lumbar vertebra noneactive Decreased bone density nonea ctive Lumbar pain noneactive [facility] Work Phone: Evaluation note* Diagnosis Onset [...] acute Intertrochanteric fracture of left femur acute [facility] Work Phone: Evaluation note* Diagnosis Onset [...] of breath acute Toxic metabolic encephalopathy acute [facility] Work Phone: Evaluation note* Diagnosis Onset [...] of breath resolved Toxic metabolic encephalopathy resolved [facility] Work Phone: Evaluation note* Diagnosis Failed orthopedic implant, initial encounter ([facility])- Primary Left hip pain Pain in joint, pelvic region and thigh [facility] 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- Primary Lytic bone lesions on xray Disorder of bone and cartilage, unspecified documented in this encounter [facility] note* Diagnosis Complication of internal hip prosthesis, initial encounter ([facility])- Primary Complication of internal hip prosthesis, initial encounter ([facility]) Failed orthopedic implant, initial encounter ([facility]) Failed orthopedic implant ([facility]) ([facility]) HTN (hypertension) Unspecified essential hypertension HLD (hyperlipidemia) Other and unspecified

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
[2024-09-01 03:32] LABS: SITE Central Line; VBG BASE EXCESS -3 mmol/L (-1.0-3.5); VBG PO2 54 mmHg (25-40); VBG SO2 88 % (50-70); VBG TCO2 23 mmol/L (23-33)
[2024-09-01 03:41] LABS: Troponin T High Sensitivity 30 ng/L (<=14)
[2024-09-01 04:40] LABS: Reflex Lactate? Y
[2024-09-01] MEDS: Pantoprazole Sodium 40 MG in 0.9% Normal Saline (100mL MB+) 100 ML 330 MG IV ×2 (05:02→21:46)
[2024-09-01] MEDS: 0.9% Normal Saline (250mL Bag) 250 ML 15 ML IV (05:02)
--- NOTE | 2024-09-01 05:51 | CPS ---
Patient confused unable to tolerate CPAP for night time use at this time, on 4L 100%
[2024-09-01 06:02] LABS: D-Dimer Quantitative (DVT/PE) 0.98 FEU/ug/m (0.27-0.49)
[2024-09-01 06:26] LABS: Cholesterol 170 mg/dL (<=200); Low Density Lipoprotein Calc. 84 mg/dL; Triglycerides 125 mg/dL; Very Low Density Lipoprotein 25 mg/dL (5-40); Vitamin B12 530 pg/mL (180-914); cholesterol:hdl ratio screen 2.81
--- NOTE | 2024-09-01 06:45 | EX.PCM.CONCC ---
Assessment & Plan Assessment/Plan (1) Sepsis: QUALIFIERS: Sepsis acute organ dysfunction status: with acute organ dysfunction Sepsis type: sepsis due to unspecified organism Severe sepsis acute organ dysfunction type: encephalopathy Severe sepsis shock status: without septic shock Qualified Code(s): A41.9 - Sepsis, unspecified organism; R65.20 - Severe sepsis without septic shock; G93.41 - Metabolic encephalopathy (2) Acute encephalopathy: PLAN: Plan RECOMMENDATIONS: 1. Continue empiric antibiotics pending culture results. 2. Gentle IV fluid resuscitation. 3. Dietary advancement once mental status improves. 4. Avoid sedating medications if feasible. 5. The patient is medically stable for transfer out of the intensive care unit. 6. Will sign off from a critical care perspective. Please call with any additional questions. IMPRESSIONS: 1. Sepsis The patient presented to the hospital with sepsis due to suspected UTI with acute sepsis related organ dysfunction as evidenced by altered mental status and lactic acidemia. The patient did receive supplemental IV fluid hydration with resolution of her lactic acidemia. The patient has remained otherwise hemodynamically stable, without the need for vasopressor support. Plan to continue empiric antibiotics, pending culture data. 2. Altered mental status Most likely metabolic in etiology with concern for recurrent UTI compounded by baseline dementia. No acute findings were noted on CT imaging of the head. TSH was within normal limits. The patient is on a number of sedating medications at her baseline, which is also likely contributing to her altered mental status. I would continue to avoid sedating medications if feasible. Continue supportive measures as noted above. 3. History of GI bleed/history of Takotsubo cardiomyopathy/hypertension/hyperlipidemia/paroxysmal atrial fibrillation Complicates care, management, recovery and prognosis. Continue home medications as indicated. This note was generated with babbelation software. It may contain incorrect words, spelling, and punctuation that were not noted in checking the note before signing. HPI Consult Data Date of Consult: 09/01/24 HPI Narrative Reason for Consultation: Sepsis HPI Narrative: The patient is a 68-year-old female, with a history as outlined below, who presented to the emergency department on September 01 with altered mental status. The patient has a known history of reflux esophagitis, gastric and duodenal ulcers, Takotsubo cardiomyopathy, hypertension, hyperlipidemia, paroxysmal atrial fibrillation, diabetes mellitus, bipolar disorder, chronic dementia and obstructive sleep apnea. The patient is a poor historian and not able to provide any additional details pertinent to her hospitalization. On presentation to the emergency department, the patient was documented to be afebrile but was tachycardic and tachypneic. She was otherwise hemodynamically stable and maintaining appropriate oxygen saturations on room air. Laboratory evaluation was notable for a white blood cell count of 23,000. Hemoglobin was elevated at 18.4 g/dL. Platelet count was within normal limits. D-dimer was mildly elevated at 0.98. Chemistry profile was notable for a creatinine of 1.38. Lactate was mildly elevated at 2.2. Total bilirubin was increased to 1.4. TSH was within normal limits. Urine analysis was positive for nitrites and leukocyte esterase along with 4+ urine bacteria. CT head demonstrated no acute findings. CT abdomen/pelvis demonstrated an age-indeterminate vertebral body fracture without any other acute findings noted. Chest x-ray was unremarkable. The patient ultimately received IV fluids along with antibiotics. She was admitted to the medical intensive care unit for further management. [facility] Medical History DURAN (acute kidney injury) Sepsis High anion gap metabolic acidosis Acute kidney injury Candidal intertrigo Acute UTI Recurrent falls Acute delirium Altered level of consciousness Acute encephalopathy Myocardial infarction type 2 Non-ST elevation LA (NSTEMI) Hiatal hernia Irritable bowel Back pain due to injury Restless legs Injury of head and neck High cholesterol Hearing loss, right Bipolar disorder Depression Anxiety GERD (gastroesophageal reflux disease) Former smoker Sleep apnea Atrial fibrillation Migraines Dementia Closed intertrochanteric fracture of left hip Psoriatic arthritis Nonobstructive atherosclerosis of coronary artery Obesity Type 2 diabetes mellitus Takotsubo syndrome Hyperlipidemia Essential (primary) hypertension NSTEMI (non-ST elevated myocardial infarction) (01/06/18) Home Medications ?Medication ?Instructions ?Recorded ?Last Taken ?Type apixaban 2.5 mg tablet (Eliquis) 2.5 mg PO BID blood thinner 02/14/24 Unknown History ergocalciferol (vitamin D2) 1,250 1,250 mcg PO SA vitamin 04/20/24 05/10/24 History mcg (50,000 unit) capsule (Vitamin D2) fexofenadine 180 mg tablet 180 mg PO DAILY allergies 04/20/24 Unknown History glipizide 10 mg tablet 10 mg PO DAILY diabetes 04/20/24 Unknown History atorvastatin 20 mg tablet 20 mg PO QHS cholesterol #0 tabs 04/24/24 05/12/24 Rx carvedilol 3.125 mg tablet 3.125 mg PO BIDCM blood pressure 04/24/24 05/13/24 Rx #0 tabs fluoxetine 40 mg capsule 40 mg PO BID #0 caps 04/24/24 Unknown Rx gabapentin 100 mg capsule 100 mg PO TID nerve pain #0 caps 04/24/24 Unknown Rx pantoprazole 40 mg tablet,delayed 40 mg PO BID reflux #0 tabs 04/24/24 Unknown Rx release tolterodine 4 mg capsule,extended 4 mg PO DAILY #0 caps 04/24/24 Unknown Rx release 24 hr acetaminophen 325 mg tablet 650 mg PO Q4H PRN Fever, pain 05/13/24 05/12/24 History -11/21 buspirone 15 mg tablet 15 mg PO BID mental health 05/13/24 Unknown History donepezil 10 mg tablet 10 mg PO DAILY memory 05/13/24 Unknown History mirabegron 50 mg tablet,extended 50 mg PO DAILY bladder 05/13/24 Unknown History release 24 hr Remove Patch 2 patch topical DAILY@2200 ##0 05/16/24 Unknown Rx aluminum-mag hydroxide-simethicone 30 ml PO Q6H PRN PRN Gastric 05/16/24 Unknown Rx 400 mg-400 mg-40 mg/5 mL oral susp Burning #0 mL (Mag-Al Plus Extra Strength) amlodipine 10 mg tablet 10 mg PO DAILY #60 tabs 05/16/24 Unknown Rx hydroxyzine pamoate 25 mg capsule 25 mg PO TID PRN PRN severe 05/16/24 Unknown Rx anxiety #0 caps insulin lispro 100 unit/mL See Protocol subcut ACHS #0 mL 05/16/24 Unknown Rx subcutaneous pen (Humalog KwikPen (U-100) Insulin) lidocaine 5 % topical patch 2 patch topical DAILY #0 ea 05/16/24 Unknown Rx melatonin 3 mg tablet 3 mg PO QHS PRN PRN Insomnia #0 05/16/24 Unknown Rx tabs potassium chloride 20 mEq 20 meq PO BIDCM #0 tabs 05/16/24 Unknown Rx tablet,extended release(part/cryst) sennosides 8.6 mg-docusate sodium 2 tab PO BID PRN PRN Constipation 05/16/24 Unknown Rx 50 mg tablet (Stimulant Laxative #0 tabs Plus) tizanidine 2 mg tablet 2 mg PO Q8H PRN PRN muscle 05/16/24 Unknown Rx spasms/strain #0 tabs nitrofurantoin 1 cap PO Q12.TCU 05/19/24 Unknown History monohydrate/macrocrystals 100 mg capsule oxybutynin chloride 15 mg PO 05/19/24 Unknown History tablet,extended release 24 hr tramadol 50 mg tablet 50 mg PO Q6H PRN pain 3 days #12 05/19/24 Unknown Rx tabs Allergy/AdvReac Type Severity Reaction Status Date / Time morphine Allergy Severe Other Verified 09/01/24 00:06 codeine Allergy Itching Verified 09/01/24 00:06 fentanyl AdvReac confusion Verified 09/01/24 00:06 naproxen AdvReac Other Verified 09/01/24 00:06 Family History Mother Cancer skin Father Cancer prostate Surgical History History of back surgery History of carpal tunnel release of both wrists History of hysterectomy History of left heart catheterization (01/07/18) Social History household members: spouse Smoking Status: Former smoker how long ago did patient quit smokin years ago alcohol intake: never substance use type: does not use caffeine: Yes Type: carbonated beverages Number of servings: 1 ROS Review of Systems ROS Unobtainable: due to mental status Physical Exam Const Constitutional Narrative: The patient is alert and will nod yes to questions, but is essentially nonverbal. HEENT normocephalic and head/scalp atraumatic Eyes PERRL, EOMs intact bilaterally and conjunctivae normal Neck supple General: trachea midline and CVC in place Chest inspection of chest normal Resp normal respiratory effort Auscultation: Negative for rales, rhonchi or wheezes Cardio regular rate and regular rhythm GI normal to inspection, nondistended, normoactive bowel sounds Extremity no clubbing, cyanosis or edema Skin no rashes or lesions noted Neuro moves all extremities and no focal motor deficits Psych Mood & Affect: flat affect Lab / Micro Data 09/01/24 00:18 09/01/24 00:18 Labs: Laboratory Results - last 24 hr 09/01/24 00:18: WBC 23.7 H, RBC 6.42 H, Hgb 18.4 H*, Hct 54.4 H, MCV 84.7, MCH 28.7, MCHC 33.8, RDW Std Deviation 40.5, RDW Coeff of Gerhard 13.5, Plt Count 434, MPV 9.6, Immature Gran % (Auto) 0.600, Neut % (Auto) 84.3 H, Lymph % (Auto) 8.5 L, [place] % (Auto) 6.3, Eos % (Auto) 0.0, Baso % (Auto) 0.3, Absolute Neuts (auto) 20.0 H, Absolute Lymphs (auto) 2.01, Nucleated RBC % 0, PT 15.1 H, INR 1.2, APTT 26.2, Sodium 141, Potassium 4.0, Chloride 100, Carbon Dioxide 16.4 L, Anion Gap 25 H, BUN 30 H, Creatinine 1.38 H, Estim Creat Clear Calc 31.38 L, Est GFR (MDRD) Non-Af 41 L, BUN/Creatinine Ratio 21.8 H, Glucose 244 H, Lactic Acid 2.2 H*, Calcium 11.2 H, Total Bilirubin 1.40 H, AST 53 H, ALT 49 H, Alkaline Phosphatase 166 H, Total Creatine Kinase 237 H, Troponin T High Sens Cancelled, Total Protein 9.4 H, Albumin 5.0 H, Globulin 4.4 H, Albumin/Globulin Ratio 1.1 09/01/24 00:46: Urine Color Yellow, Urine Clarity Turbid, Urine pH 6.0, Ur Specific [place] 1.015, Urine Protein 500 H, Urine Glucose (UA) Normal, Urine Ketones 50 H, Urine Occult Blood 150 H, Urine Nitrite Positive H, Urine Bilirubin Negative, Urine Urobilinogen Normal, Ur Leukocyte Esterase 500 H, Urine RBC 0-5 SEEN, Urine WBC >100 SEEN, Ur Squamous Epith Cells 5-10 SEEN, Ur Transition Epith Cell 0-5 SEEN, Ur Renal Epithelial Cell 5-10 SEEN, Urine Bacteria 4+, Urine Mucus 0 SEEN 09/01/24 03:17: Troponin T High Sens 30 H D 09/01/24 05:06: D-Dimer Quant (PE/DVT) 0.98 H*, Hemoglobin A1c 5.7, Lactic Acid < 1.0, Triglycerides 125, Cholesterol 170, LDL Cholesterol, Calc 84, VLDL Cholesterol 25, HDL Cholesterol 61, Cholesterol/HDL Ratio 2.81, Vitamin B12 530, TSH 1.770 ABG Data ABG results: ABG 09/01/24 03:24 Specimen Type RADHA Sample Site Central Line VBG pH 7.41 VBG pO2 54 H VBG HCO3 22 VBG Total CO2 23 VBG O2 Sat (Calc) 88 H VBG Base Excess -3 L POC Mix VBG pCO2 Pt Tmp 35.1 L O2 Delivery Device Room Air Rhythm Strip Rhythm Strip: Sinus Tach Rate: 125 Ectopy: None Imaging Radiology Impression Brain CT 09/01/24 00:26 IMPRESSION: No acute findings Reading Location: [facility] Abdomen/Pelvis CT 09/01/24 00:29 IMPRESSION: Interval development of an L3 vertebral body fracture, correlate as to acuity. No acute abdominopelvic findings are otherwise noted. Reading Location: [facility] Chest X-Ray 09/01/24 01:05 IMPRESSION: No acute chest findings. Reading Location: [facility] Chest X-Ray 09/01/24 03:30 IMPRESSION: No acute chest findings. Successful central line placement. Reading Location: [facility] Charges/Coding Visit Charges Inpatient E&M: 14403 Init Hosp L3
[2024-09-01 06:46] LABS: PTHIN 144 pg/mL (11-61)
[2024-09-01 07:02] LABS: Troponin T High Sens 2 HR 29 ng/L (<=14)
[2024-09-01 07:07] LABS: FOLATES,SERUM (FOLIC ACID) 20.00 ng/mL (4.60-34.80)
[2024-09-01 09:41] LABS: Troponin T High Sens 4 HR 25 ng/L (<=14)
--- NOTE | 2024-09-01 09:56 | CASEMGMT ---
Social Work- SW spoke with Radha Joshi, [facility] to provide updates. Radha reports that pt has recently been at [facility] and only went home because they had not yet received approval for waiver AL. Radha reports that [facility] is now able to accept waiver [facility] and so the thought would be for pt to return to [facility] skilled and Radha will assist with transition to AL. Radha reports that pt does not do well at home due to dynamics with spouse. SW remains available to follow. Pt is nonverbal and nonresponsive to conversation this morning. CARMEN Owens
[2024-09-01] MEDS: 0.9% Saline Lock 10 ML Syringe IV ×2 (11:33→20:28)
[2024-09-01] MEDS: 0.9% Normal Saline (1000mL) 1,000 ML 125 ML IV ×2 (12:03→20:28)
[2024-09-01] MEDS: Lorazepam 2 MG/ML WCH Syringe 1 MG IV (13:53)
--- NOTE | 2024-09-01 16:35 | PN_ITS ---
Subjective Subjective Patient seen and examined with his nurse by his bedside. She was quite lethargic and just mumbling. Unable to do review of systems due to lethargy. She has remained febrile with temp of 100F. On 2L of oxygen. WBc today is 23.7 and Hb is 18.4. Objective Data Objective Data Vital Signs: Vital Signs Temp Pulse Resp BP Pulse Ox O2 Del Method O2 Flow Rate 100.0 F H 98 18 139/69 H 99 Nasal Cannula 2 09/01/24 15:04 09/01/24 15:04 09/01/24 15:04 09/01/24 15:04 09/01/24 15:04 09/01/24 15:04 09/01/24 15:04 Oxygen Flow Rate (L/min) 2 Oxygen Delivery Method Nasal Cannula Weight: 141 lb 4.8 oz Body Mass Index (BMI) 25.0 Intake & Output: Intake and Output for Last 24 Hours 08/30/24 08/31/24 09/01/24 23:59 23:59 23:59 Intake Total Output Total 140 / 140 Balance Medical Nutrition Assessment Dietitian: Malnutrition Criteria Met Start: 09/01/24 11:12 Freq: Status: Active Protocol: Document 09/01/24 11:12 JAZIEL (Rec: 09/01/24 11:12 JAZIEL [id number]) Nutrition Malnutrition Evidence of Yes Malnutrition Exists Malnutrition (severe Chronic ): Evidenced By Suboptimal Energy Intake (Severe),Weight Loss (Severe) Clinical Problem Chronic Disease or Condition Related Malnutrition Etiology related to chronic dementia and inadequate energy intake Signs/Symptoms as evidenced by 13.9% wt loss x 3 months and 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 If unable to resume po diet and/or if po intake/wt continue poor, rec consider supplemental nutrition support to help prevent further decline in nutritional status. Lab / Micro Data 09/01/24 00:18 09/01/24 00:18 Labs: Laboratory Results - last 24 hr 09/01/24 00:18: WBC 23.7 H, RBC 6.42 H, Hgb 18.4 H*, Hct 54.4 H, MCV 84.7, MCH 28.7, MCHC 33.8, RDW Std Deviation 40.5, RDW Coeff of Gerhard 13.5, Plt Count 434, MPV 9.6, Immature Gran % (Auto) 0.600, Neut % (Auto) 84.3 H, Lymph % (Auto) 8.5 L, [place] % (Auto) 6.3, Eos % (Auto) 0.0, Baso % (Auto) 0.3, Absolute Neuts (auto) 20.0 H, Absolute Lymphs (auto) 2.01, Nucleated RBC % 0, PT 15.1 H, INR 1.2, APTT 26.2, Sodium 141, Potassium 4.0, Chloride 100, Carbon Dioxide 16.4 L, Anion Gap 25 H, BUN 30 H, Creatinine 1.38 H, Estim Creat Clear Calc 31.38 L, Est GFR (MDRD) Non-Af 41 L, BUN/Creatinine Ratio 21.8 H, Glucose 244 H, Lactic Acid 2.2 H*, Calcium 11.2 H, Total Bilirubin 1.40 H, AST 53 H, ALT 49 H, Alkaline Phosphatase 166 H, Total Creatine Kinase 237 H, Troponin T High Sens Cancelled, Total Protein 9.4 H, Albumin 5.0 H, Globulin 4.4 H, Albumin/Globulin Ratio 1.1 09/01/24 00:46: Urine Color Yellow, Urine Clarity Turbid, Urine pH 6.0, Ur Specific [place] 1.015, Urine Protein 500 H, Urine Glucose (UA) Normal, Urine Ketones 50 H, Urine Occult Blood 150 H, Urine Nitrite Positive H, Urine Bilirubin Negative, Urine Urobilinogen Normal, Ur Leukocyte Esterase 500 H, Urine RBC 0-5 SEEN, Urine WBC >100 SEEN, Ur Squamous Epith Cells 5-10 SEEN, Ur Transition Epith Cell 0-5 SEEN, Ur Renal Epithelial Cell 5-10 SEEN, Urine Bacteria 4+, Urine Mucus 0 SEEN 09/01/24 03:17: Troponin T High Sens 30 H D 09/01/24 05:06: D-Dimer Quant (PE/DVT) 0.98 H*, Hemoglobin A1c 5.7, Lactic Acid < 1.0, Troponin T Hi Sens 2 Hr 29 H, Triglycerides 125, Cholesterol 170, LDL Cholesterol, Calc 84, VLDL Cholesterol 25, HDL Cholesterol 61, Cholesterol/HDL Ratio 2.81, Vitamin B12 530, Serum Folate 20.00, TSH 1.770, PTH Intact 144 H 09/01/24 07:35: Troponin T Hi Sens 4Hr 25 H ABG Data ABG results: ABG 09/01/24 03:24 Specimen Type RADHA Sample Site Central Line VBG pH 7.41 VBG pO2 54 H VBG HCO3 22 VBG Total CO2 23 VBG O2 Sat (Calc) 88 H VBG Base Excess -3 L POC Mix VBG pCO2 Pt Tmp 35.1 L O2 Delivery Device Room Air Radiography Diagnostic Testing: Radiology Impression Brain CT 09/01/24 00:26 IMPRESSION: No acute findings Reading Location: [facility] Abdomen/Pelvis CT 09/01/24 00:29 IMPRESSION: Interval development of an L3 vertebral body fracture, correlate as to acuity. No acute abdominopelvic findings are otherwise noted. Reading Location: [facility] Chest X-Ray 09/01/24 01:05 IMPRESSION: No acute chest findings. Reading Location: [facility] Chest X-Ray 09/01/24 03:30 IMPRESSION: No acute chest findings. Successful central line placement. Reading Location: [facility] Rhythm Strip Rhythm Strip: Sinus Tach Rate: 125 Ectopy: None Physical Exam Const Constitutional Narrative: restless, mumbling. Orientation / Consciousness: lethargic HEENT normocephalic, moist oral mucous membranes and oropharynx normal Eyes PERRL and EOMs intact bilaterally Neck no lymphadenopathy and supple Resp normal respiratory effort, normal air movement and clear to auscultation bilaterally Cardio regular rate, regular rhythm, S1 normal heart sound, S2 normal heart sound and no murmurs GI normal to inspection, nondistended, normoactive bowel sounds, soft to palpation and non-tender Extremity normal capillary refill, no clubbing, cyanosis or edema and no calf tenderness General Extremity: no tenderness to palpation of joints or extremities Skin General Skin Exam: no breakdown Neuro no focal motor deficits Motor Exam: general weakness Psych Psych Narrative: confused Assessment & Plan Assessment/Plan (1) Acute cystitis without hematuria: PLAN: Plan #Acute encephalopathy due to cystitis * Patient currently on IV ceftriaxone. Critical care on board. * Blood and urine cultures pending. Hydrate gently with IV fluid. * Was found down at home quite lethargic. CT of the brain showed no acute intracranial pathology. #Compression fracture of L3 * Has a history of recurrent falls. This was found on CT during this admission. MRI of the lumbar spine ordered. PT OT on board. Fall precautions. #Mild hypercalcemia: Calcium was 11.2 on admission likely due to dehydration. Should improve with hydration. #DURAN: Cr is 1.38. Baseline Cr is 1.13. Should improve with hydration. #Secondary polycythemia: Hemoglobin was 18.4 on admission. Likely due to dehydration. Should improve with hydration. #Benign essential hypertension: On amlodipine and carvedilol. These were held due to low blood pressure on admission #Paroxysmal A-fib: On carvedilol and Eliquis. Currently transition to Lovenox due to patient's lethargy. #CAD and history of Takotsubo cardiomyopathy: Stable #Type 2 diabetes mellitus: On glipizide. Insulin sliding scale. Checks ACHS. #BURKE: On CPAP nightly #History of bipolar disorder: On fluoxetine and buspirone #Overactive bladder: On mirabegron and tolterodine as well as oxybutynin. These were on hold due to lethargy. #GERD: PPI DVT prophylaxis: On Lovenox Total time spent on evaluation and management of patient, reviewing chart and specialist notes, discussion with nursing and ancillary staff as well as documentation: 35 mins Charges/Coding Visit Charges Inpatient E&M: 44098 PROLNG IP/OBS E/M EA 15 MIN
[2024-09-02] VITALS (7 sets, daily range): BP systolic 130–168; BP diastolic 73–82; PULSE 90–110; RESP 17–18; TEMP 36.4–37.3; O2SAT 93–100; BMI 25.2
--- NOTE | 2024-09-02 06:00 | MRI_ITS ---
PROCEDURE: SPINE LUMBAR (ROUTINE) 09/02/2024 REASON FOR EXAM: L3 COMP FX ON CT. ? ACUTE. TECHNIQUE: SPINE LUMBAR (ROUTINE) COMPARISON: May 19, 2024 CT FINDINGS: Vertebrae: There is a marrow edema at the anterior superior T10 endplate consistent with a recent 25% compression deformity. There is a chronic 50% compression deformity at T11, chronic 25% compression deformity at T12. There is marrow edema consistent with recent compression fracture at L3 with 50% loss of vertebral body height. There is marrow edema in the anterior component of the L2 compression fracture. There is an 80% compression deformity at L1 and L2, 50% compression at L3, 40% compression deformity at L4 and L5. Vertebroplasty changes noted at L5. The facets are aligned. Alignment: There is grade 1 retrolisthesis at L1-2, 0.5 cm. There is grade 1 retrolisthesis at L2-3, 0.4 cm. Conus Medullaris: Intact L1-2: There is retropulsed posterior endplate at L1 which narrows the spinal canal to 0.9 cm, mild central canal stenosis. There is moderate bilateral lateral recess effacement. There is moderate bilateral foraminal narrowing secondary to bony hypertrophy. L2-3: There is a retropulsed posterior endplate of L2 which narrows the spinal canal to 0.6 cm, moderate central canal stenosis. There is moderate bilateral lateral recess stenosis and moderate bilateral foraminal narrowing secondary to bony hypertrophy. L3-4: There is no significant disc bulge, spinal stenosis, or foraminal narrowing L4-5: There is posterior displacement of the posterior superior endplate at L4 which narrows the spinal canal to 0.7 cm, moderate central canal stenosis. There is no significant lateral recess stenosis. There is mild left foraminal narrowing secondary to bony hypertrophy. L5-S1: There is mild central and right and left paracentral disc and osteophyte protrusion. There is no significant lateral recess or foraminal narrowing. There is no central canal stenosis Sacrum: Grossly unremarkable MRI/Spine Lumbar (Routine) IMPRESSION: There is a marrow edema at the anterior superior T10 endplate consistent with a recent 25% compression deformity. There is a chronic 50% compression deformity at T11, chronic 25% compression de formity at T12. There is marrow edema consistent with recent compression fracture at L3 with 50 % loss of vertebral body height. There is marrow edema in the anterior component of the L2 compression fracture, recent fracture. There is mild central canal stenosis at L1-2, moderate central canal stenosis a t L2-3 and L4-5, with lateral recess and foraminal narrowing. Reading [facility]
[2024-09-02 07:56] LABS: Hematocrit 36.7 % (37-47); Hemoglobin 11.8 g/dL (12.0-15.0); Immature Granulocytes Count 0.060 X10^3/uL (0.0-0.0); Mean Corp Hgb Conc 32.2 g/dL (32-36); Mean Corpuscular Volume 88.9 fL (81-99); Mean Platelet Vol. 9.8 fl (6.2-12.0); NRBC Flagged by Analyzer 0 % (0-5); Platelet Count 248 K/mm3 (150-450); RBC Distribution Width CV 13.5 % (11.6-14.6); RBC Distribution Width SD 43.8 fl (35.1-43.9); Red Blood Count 4.13 M/mm3 (4.2-5.4); White Blood Count 13.9 K/mm3 (4.4-11.0)
--- NOTE | 2024-09-02 08:59 | CASEMGMT ---
Addendum entered by Anum Soler 09/02/24 09:25: [facility] declined d/t no bed availability. SW updated. Anum Soler DC Planning Asst. Original Note: Discharge Planning SNF referral sent to [facility]. Anum Soler DC Planning Asst.
[2024-09-02 09:03] LABS: Anion Gap 11 (5-15); BUN 26 mg/dL (4-19); BUN/Creat Ratio 31.0 RATIO (10-20); Calcium,Total 8.5 mg/dL (7.6-11.0); Carbon Dioxide 20.7 mmol/L (21.0-32.0); Chloride 116 mmol/L (98-108); Estimated Creatinine Clearance 55.76 ml/min (50-250); Glucose 130 mg/dL (70-99); Potassium 3.2 mmol/L (3.3-5.1)
[2024-09-02] MEDS: Vancomycin HCl 1,500 MG in 0.9% Normal Saline (500mL Bag) 500 ML 250 MG IV (10:14)
--- NOTE | 2024-09-02 10:45 | PCM.CONS.GEN ---
Assessment & Plan Assessment/Plan (1) Acute UTI: (2) Acute encephalopathy: (3) Sepsis: QUALIFIERS: Sepsis type: sepsis due to unspecified organism Sepsis acute organ dysfunction status: with acute organ dysfunction Severe sepsis acute organ dysfunction type: encephalopathy Severe sepsis shock status: without septic shock Qualified Code(s): A41.9 - Sepsis, unspecified organism; R65.20 - Severe sepsis without septic shock; G93.41 - Metabolic encephalopathy PLAN: Ucx with GNR. 1 of 2 bcx with CoNS, so far consistent with contaminant. Cont vanc/ceftriaxone for now. DURAN and wbc improved. Will follow, thank you, d/w Dr. Hopkins (4) Closed L3 vertebral fracture: QUALIFIERS: Encounter type: initial encounter Fracture morphology: unspecified fracture morphology Qualified Code(s): S32.039A - Unspecified fracture of third lumbar vertebra, initial encounter for closed fracture HPI Consult Data Date of Consult: 09/02/24 HPI Narrative Reason for Consultation: (+) bcx HPI Narrative: LUBA MARSH, is a 68 F with h/o DM, psoriatic arthritis, presented 09/01 after being found down after what was thought to be 2-3 days. She does not recall what happened. Denies fever, chills, abd pain, dysuria, cough, SOB. CT showed L3 fracture. Admitted on vanc/ceftriaxone. Full ROS performed and neg except as noted above. [facility] Medical History DURAN (acute kidney injury) Sepsis High anion gap metabolic acidosis Acute kidney injury Candidal intertrigo Acute UTI Recurrent falls Acute delirium Altered level of consciousness Acute encephalopathy Myocardial infarction type 2 Non-ST elevation NM (NSTEMI) Hiatal hernia Irritable bowel Back pain due to injury Restless legs Injury of head and neck High cholesterol Hearing loss, right Bipolar disorder Depression Anxiety GERD (gastroesophageal reflux disease) Former smoker Sleep apnea Atrial fibrillation Migraines Dementia Closed intertrochanteric fracture of left hip Psoriatic arthritis Nonobstructive atherosclerosis of coronary artery Obesity Type 2 diabetes mellitus Takotsubo syndrome Hyperlipidemia Essential (primary) hypertension NSTEMI (non-ST elevated myocardial infarction) (01/06/18) Home Medications ?Medication ?Instructions ?Recorded ?Last Taken ?Type apixaban 2.5 mg tablet (Eliquis) 2.5 mg PO BID blood thinner 02/14/24 Unknown History ergocalciferol (vitamin D2) 1,250 1,250 mcg PO SA vitamin 04/20/24 05/10/24 History mcg (50,000 unit) capsule (Vitamin D2) fexofenadine 180 mg tablet 180 mg PO DAILY allergies 04/20/24 Unknown History glipizide 10 mg tablet 10 mg PO DAILY diabetes 04/20/24 Unknown History atorvastatin 20 mg tablet 20 mg PO QHS cholesterol #0 tabs 04/24/24 05/12/24 Rx carvedilol 3.125 mg tablet 3.125 mg PO BIDCM blood pressure 04/24/24 05/13/24 Rx #0 tabs fluoxetine 40 mg capsule 40 mg PO BID #0 caps 04/24/24 Unknown Rx gabapentin 100 mg capsule 100 mg PO TID nerve pain #0 caps 04/24/24 Unknown Rx pantoprazole 40 mg tablet,delayed 40 mg PO BID reflux #0 tabs 04/24/24 Unknown Rx release tolterodine 4 mg capsule,extended 4 mg PO DAILY #0 caps 04/24/24 Unknown Rx release 24 hr acetaminophen 325 mg tablet 650 mg PO Q4H PRN Fever, pain 05/13/24 05/12/24 History -11/21 buspirone 15 mg tablet 15 mg PO BID mental health 05/13/24 Unknown History donepezil 10 mg tablet 10 mg PO DAILY memory 05/13/24 Unknown History mirabegron 50 mg tablet,extended 50 mg PO DAILY bladder 05/13/24 Unknown History release 24 hr Remove Patch 2 patch topical DAILY@2200 ##0 05/16/24 Unknown Rx aluminum-mag hydroxide-simethicone 30 ml PO Q6H PRN PRN Gastric 05/16/24 Unknown Rx 400 mg-400 mg-40 mg/5 mL oral susp Burning #0 mL (Mag-Al Plus Extra Strength) amlodipine 10 mg tablet 10 mg PO DAILY #60 tabs 05/16/24 Unknown Rx hydroxyzine pamoate 25 mg capsule 25 mg PO TID PRN PRN severe 05/16/24 Unknown Rx anxiety #0 caps insulin lispro 100 unit/mL See Protocol subcut ACHS #0 mL 05/16/24 Unknown Rx subcutaneous pen (Humalog KwikPen (U-100) Insulin) lidocaine 5 % topical patch 2 patch topical DAILY #0 ea 05/16/24 Unknown Rx melatonin 3 mg tablet 3 mg PO QHS PRN PRN Insomnia #0 05/16/24 Unknown Rx tabs potassium chloride 20 mEq 20 meq PO BIDCM #0 tabs 05/16/24 Unknown Rx tablet,extended release(part/cryst) sennosides 8.6 mg-docusate sodium 2 tab PO BID PRN PRN Constipation 05/16/24 Unknown Rx 50 mg tablet (Stimulant Laxative #0 tabs Plus) tizanidine 2 mg tablet 2 mg PO Q8H PRN PRN muscle 05/16/24 Unknown Rx spasms/strain #0 tabs nitrofurantoin 1 cap PO Q12.TCU 05/19/24 Unknown History monohydrate/macrocrystals 100 mg capsule oxybutynin chloride 15 mg PO 05/19/24 Unknown History tablet,extended release 24 hr tramadol 50 mg tablet 50 mg PO Q6H PRN pain 3 days #12 05/19/24 Unknown Rx tabs Allergy/AdvReac Type Severity Reaction Status Date / Time morphine Allergy Severe Other Verified 09/01/24 00:06 codeine Allergy Itching Verified 09/01/24 00:06 fentanyl AdvReac confusion Verified 09/01/24 00:06 naproxen AdvReac Other Verified 09/01/24 00:06 Family History Mother Cancer skin Father Cancer prostate Surgical History History of back surgery History of carpal tunnel release of both wrists History of hysterectomy History of left heart catheterization (01/07/18) Social History household members: spouse Smoking Status: Former smoker how long ago did patient quit smokin years ago alcohol intake: never substance use type: does not use caffeine: Yes Type: carbonated beverages Number of servings: 1 Physical Exam Const alert and no apparent distress General Appearance: lethargic HEENT normocephalic and head/scalp atraumatic Eyes PERRL and EOMs intact bilaterally Neck supple and No nodes Resp normal air movement and clear to auscultation bilaterally Cardio regular rate and regular rhythm Heart Sounds: murmur GI soft to palpation, non-tender and non-distended Extremity General Extremity: Negative for edema Skin no rashes or lesions noted Neuro CN's II-XII intact bilaterally Medical Records Data Medical Nutrition Assessment Dietitian: Malnutrition Criteria Met Start: 09/01/24 11:12 Freq: Status: Active Protocol: Document 09/01/24 11:12 SLA (Rec: 09/01/24 11:12 [facility] [id number]) Nutrition Malnutrition Evidence of Yes Malnutrition Exists Malnutrition (severe Chronic ): Evidenced By Suboptimal Energy Intake (Severe),Weight Loss (Severe) Clinical Problem Chronic Disease or Condition Related Malnutrition Etiology related to chronic dementia and inadequate energy intake Signs/Symptoms as evidenced by 13.9% wt loss x 3 months and 20.9% wt loss x 7 months [employer] and 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 If unable to resume po diet and/or if po intake/wt continue poor, rec consider supplemental nutrition support to help prevent further decline in nutritional status. Lab / Micro Data Attestation: I reviewed the patient's lab results. 09/02/24 06:30 09/02/24 06:31 Labs: Laboratory Results - last 24 hr 09/02/24 06:30: WBC 13.9 H, RBC 4.13 L, Hgb 11.8 L, Hct 36.7 L, MCV 88.9, MCH 28.6, MCHC 32.2, RDW Std Deviation 43.8, RDW Coeff of Gerhard 13.5, Plt Count 248, MPV 9.8, Immature Gran % (Auto) 0.400, Neut % (Auto) 75.1 H, Lymph % (Auto) 17.9 L, [place] % (Auto) 6.1, Eos % (Auto) 0.4, Baso % (Auto) 0.1, Absolute Neuts (auto) 10.4 H, Absolute Lymphs (auto) 2.49, Nucleated RBC % 0 09/02/24 06:31: Sodium 147 H, Potassium 3.2 L, Chloride 116 H, Carbon Dioxide 20.7 L, Anion Gap 11, BUN 26 H, Creatinine 0.85, Estim Creat Clear Calc 55.76, Est GFR (MDRD) Non-Af 74, BUN/Creatinine Ratio 31.0 H, Glucose 130 H, Calcium 8.5 Micro: Microbiology 09/01/24 03:17 Blood Culture (Wb) - Central Line Bacteria Detection (PCR) - Preliminary 09/01/24 03:17 Blood Culture (Wb) - Central Line Blood Culture - Preliminary Coag Negative Staph 09/01/24 00:46 Urine, Catheterized Urine Culture - Preliminary GNR 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
--- NOTE | 2024-09-02 11:42 | PCM.RX.CS ---
Consult Antibiotic Management Pharmacy has been consulted to manage selected antibiotic: Vancomycin Type of Intervention Type of Consult: New start Suspected Infection Suspected Infection: Sepsis Labs Labs: Sodium 147 mmol/L (133-145) H 09/02/24 06:31 Potassium 3.2 mmol/L (3.3-5.1) L 09/02/24 06:31 Chloride 116 mmol/L (98-108) H 09/02/24 06:31 Carbon Dioxide 20.7 mmol/L (21.0-32.0) L 09/02/24 06:31 Anion Gap 11 (5-15) 09/02/24 06:31 BUN 26 mg/dL (4-19) H 09/02/24 06:31 Creatinine 0.85 mg/dL (0.70-1.20) 09/02/24 06:31 Est GFR (MDRD) Non-Af 74 (>60) 09/02/24 06:31 BUN/Creatinine Ratio 31.0 RATIO (10-20) H 09/02/24 06:31 Glucose 130 mg/dL (70-99) H 09/02/24 06:31 Microbiology Microbiology: Microbiology 09/01/24 03:17 Blood Culture (Wb) - Central Line Bacteria Detection (PCR) - Preliminary 09/01/24 03:17 Blood Culture (Wb) - Central Line Blood Culture - Preliminary Coag Negative Staph 09/01/24 00:46 Urine, Catheterized Urine Culture - Preliminary GNR 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 NEW START IV VANCOMYCIN Consulting Physician: HARRIET Indication: SEPSIS SECONDARY TO UTI Goal Trough: 15-20 SrCr: 0.85 CrCl: 53 Comments: FIRST DOSE 1500 MG 09/02 @ 1014 Vancomycin Dose: 500 MG Q12H WITH FIRST DOSE 09/02 @ 0 Pending Level: WILL ORDER TROUGH PRIOR TO FOURTH DOSE 09/03 @ 2129
--- NOTE | 2024-09-02 12:05 | CASEMGMT ---
Social Work Updated by Anum Discharge Glove Turner that patient declined by [facility] due to no beds. Spoke with patient's bedside nurse to check in on how patient is doing. Met with patient, introducing to self and social work role. Patient alert and oriented to person, place, year, current president. Unable to state the month or day. Updated that social work involved and working on discharge plan, and recommendation was for placement at nursing facility. Mentioned that from chart review it appears assisted living waiver is in process. Patient scrunched eyes up, appearing confused about the plan for assisted living, though when asked if patient thought should go somewhere else at discharge than home the patient agreed and is willing to go somewhere. Updated that [facility] has no beds currently. Patient stated I don't know where, would go when learned [facility] beds. air brake worker informed will get a list of choices so can be reviewed. Asked patient if okay to call patient's to discuss, and patient agreed. Called and received voicemail. Message left to call this copywriter. Plan: Anticipate NF placement. Will folow up with patient and/or regarding choice list. -MYA Asher
--- NOTE | 2024-09-02 12:13 | CASEMGMT ---
Discharge Planning A list of SNF providers including quality and resource use data and consistent with the patient's preferred geographic region, medical needs, and insurance network was created in [facility] Guide.? This list was provided to the SW. Anum Soler Discharge Planning Asst.
--- NOTE | 2024-09-02 13:20 | PN_ITS ---
Subjective Subjective Patient seen and examined. She was lying comfortably in bed and had no active complaints. She had an uneventful night and review of symptoms otherwise negative. She is due for the MRI of the lumbar spine today. She could not have a yesterday due to agitation. I did see her with her nurse by her bedside. Blood cultures 1 out of 2 growing gram-positive cocci. Patient therefore started on vancomycin. ID consulted. Objective Data Objective Data Vital Signs: Vital Signs Temp Pulse Resp BP Pulse Ox O2 Del Method O2 Flow Rate 97.8 F 90 17 139/74 H 97 Nasal Cannula 2 09/02/24 08:08 09/02/24 08:08 09/02/24 08:08 09/02/24 08:08 09/02/24 08:08 09/02/24 08:08 09/02/24 08:08 Oxygen Flow Rate (L/min) 2 Oxygen Delivery Method Nasal Cannula Weight: 142 lb 12.8 oz Body Mass Index (BMI) 25.2 Intake & Output: Intake and Output for Last 24 Hours 08/31/24 09/01/24 09/02/24 23:59 23:59 23:59 Intake Total 3303.25 / 3303.25 1776.75 / 1776.75 Output Total 490 / 490 375 / 375 Balance 2813.25 / 2813.25 1401.75 / 1401.75 Medical Nutrition Assessment Dietitian: Malnutrition Criteria Met Start: 09/01/24 11:12 Freq: Status: Active Protocol: Document 09/01/24 11:12 SLA (Rec: 09/01/24 11:12 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 If unable to resume po diet and/or if po intake/wt continue poor, rec consider supplemental nutrition support to help prevent further decline in nutritional status. Lab / Micro Data 09/02/24 06:30 09/02/24 06:31 Labs: Laboratory Results - last 24 hr 09/02/24 06:30: WBC 13.9 H, RBC 4.13 L, Hgb 11.8 L, Hct 36.7 L, MCV 88.9, MCH 28.6, MCHC 32.2, RDW Std Deviation 43.8, RDW Coeff of Gerhard 13.5, Plt Count 248, MPV 9.8, Immature Gran % (Auto) 0.400, Neut % (Auto) 75.1 H, Lymph % (Auto) 17.9 L, [place] % (Auto) 6.1, Eos % (Auto) 0.4, Baso % (Auto) 0.1, Absolute Neuts (auto) 10.4 H, Absolute Lymphs (auto) 2.49, Nucleated RBC % 0 09/02/24 06:31: Sodium 147 H, Potassium 3.2 L, Chloride 116 H, Carbon Dioxide 20.7 L, Anion Gap 11, BUN 26 H, Creatinine 0.85, Estim Creat Clear Calc 55.76, Est GFR (MDRD) Non-Af 74, BUN/Creatinine Ratio 31.0 H, Glucose 130 H, Calcium 8.5 09/02/24 11:16: POC Glucose 113 H Micro: Microbiology 09/01/24 03:17 Blood Culture (Wb) - Central Line Bacteria Detection (PCR) - Preliminary 09/01/24 03:17 Blood Culture (Wb) - Central Line Blood Culture - Preliminary Coag Negative Staph 09/01/24 00:46 Urine, Catheterized Urine Culture - Preliminary GNR 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 There is a chronic 50% compression deformity at T11, chronic 25% compression deformity at T12. There is marrow edema consistent with recent compression fracture at L3 with 50% loss of vertebral body height. There is marrow edema in the anterior component of the L2 compression fracture, recent fracture. There is mild central canal stenosis at L1-2, moderate central canal stenosis at L2-3 and L4-5, with lateral recess and foraminal narrowing. [facility] Rhythm Strip Rhythm Strip: Sinus Tach Rate: 125 Ectopy: None Physical Exam Const alert and oriented x3 Orientation / Consciousness: lethargic HEENT normocephalic, head/scalp atraumatic, hearing grossly normal bilaterally, moist oral mucous membranes and oropharynx normal Eyes PERRL and EOMs intact bilaterally Neck no lymphadenopathy, supple and no JVD Neck Narrative: Left IJ in place. Lymph Lymphatic: no lymphedema noted Resp normal respiratory effort, normal air movement, no retractions, no use of accessory muscles and clear to auscultation bilaterally Cardio regular rate, regular rhythm, S1 normal heart sound, S2 normal heart sound and no murmurs GI normal to inspection, nondistended, normoactive bowel sounds, soft to palpation, non-tender and non-distended Extremity normal to inspection, full ROM, normal capillary refill and no clubbing, cyanosis or edema General Extremity: no tenderness to palpation of joints or extremities Skin General Skin Exam: no breakdown Neuro no focal motor deficits Neuro Narrative: alert and communicative Motor Exam: general weakness Psych cooperative Mood & Affect: flat affect Assessment & Plan Assessment/Plan (1) Acute cystitis without hematuria: PLAN: Plan #Acute encephalopathy due to cystitis * Patient currently on IV ceftriaxone. Critical care on board. * Blood cultures growing gram-positive cocci in 1 out of 2 samples. Started on IV vancomycin. ID consulted. Per ID they think is likely coagulase-negative staph. Will therefore hold off on 2D echo for now and repeat blood cultures pending. * CT brain showed no acute intracranial pathology. WBC is 13.9 today. * #Compression fracture of L3 * Has a history of recurrent falls. This was found on CT during this admission. MRI of the lumbar spine ordered. PT OT on board. Fall precautions. #Mild hypercalcemia: Resolved. #Hypernatremia: Sodium is 147. Likely due to IV fluid administration. Hydrate gently with D5 water overnight. #Hypokalemia: Potassium is 3.2 today. Will replace and trend. #DURAN: Resolved. Creatinine is down to 0.85. #Secondary polycythemia: Hemoglobin was 18.4 on admission. Likely due to dehydration. Should improve with hydration. #Benign essential hypertension: On amlodipine and carvedilol. These were held due to low blood pressure on admission #Paroxysmal A-fib: On carvedilol and Eliquis. Currently transition to Lovenox due to patient's lethargy. #CAD and history of Takotsubo cardiomyopathy: Stable #Type 2 diabetes mellitus: On glipizide. Insulin sliding scale. Checks ACHS. #BURKE: On CPAP nightly #History of bipolar disorder: On fluoxetine and buspirone #Overactive bladder: On mirabegron and tolterodine as well as oxybutynin. These were on hold due to lethargy. #GERD: PPI DVT prophylaxis: On Lovenox Charges/Coding Visit Charges Inpatient E&M: 87214 Subs Hosp L2
[2024-09-02] MEDS: 0.9% Saline Lock 10 ML Syringe IV (16:32)
[2024-09-02] MEDS: Dextrose 5%-Water (1000mL Bag) 1,000 ML 75 ML IV (16:51)
[2024-09-02] MEDS: Vancomycin HCl 500 MG in 0.9% Normal Saline (100mL Bag) 100 ML 100 MG IV (21:29)
[2024-09-02] MEDS: Pantoprazole Sodium 40 MG in 0.9% Normal Saline (100mL MB+) 100 ML 330 MG IV (23:06)
[2024-09-02] MEDS: Potassium Chloride 10mEq/100mL 10 MEQ/100 ML IV.SOLN. 100 MEQ IV BOLUS (23:54)
[2024-09-03] MEDS: Potassium Chloride 10mEq/100mL 10 MEQ/100 ML IV.SOLN. 100 MEQ IV BOLUS ×7 (01:03→12:51)
[2024-09-03 02:00] VITALS: BP 131/76; PULSE 92; RESP 18; TEMP 36.4; O2SAT 96
[2024-09-03 03:00] VITALS: BMI 26.1
[2024-09-03 06:27] LABS: Hematocrit 36.3 % (37-47); Hemoglobin 11.9 g/dL (12.0-15.0); Immature Granulocytes Count 0.060 X10^3/uL (0.0-0.0); Mean Corp Hgb Conc 32.8 g/dL (32-36); Mean Corpuscular Volume 86.6 fL (81-99); Mean Platelet Vol. 9.5 fl (6.2-12.0); NRBC Flagged by Analyzer 0 % (0-5); Platelet Count 233 K/mm3 (150-450); RBC Distribution Width CV 13.1 % (11.6-14.6); RBC Distribution Width SD 41.2 fl (35.1-43.9); Red Blood Count 4.19 M/mm3 (4.2-5.4); White Blood Count 13.6 K/mm3 (4.4-11.0)
[2024-09-03 06:42] VITALS: O2SAT 94
[2024-09-03 07:00] VITALS: PULSE 88
[2024-09-03 07:01] LABS: Anion Gap 11 (5-15); BUN 18 mg/dL (4-19); BUN/Creat Ratio 23.4 RATIO (10-20); Calcium,Total 8.7 mg/dL (7.6-11.0); Carbon Dioxide 23.0 mmol/L (21.0-32.0); Chloride 106 mmol/L (98-108); Estimated Creatinine Clearance 60.08 ml/min (50-250); Glucose 203 mg/dL (70-99); Magnesium 1.7 mg/dL (1.5-2.2); Potassium 3.0 mmol/L (3.3-5.1)
[2024-09-03 07:52] VITALS: BP 143/83; PULSE 92; RESP 16; TEMP 37.2; O2SAT 96
[2024-09-03] MEDS: Vancomycin HCl 500 MG in 0.9% Normal Saline (100mL Bag) 100 ML 100 MG IV (10:22)
--- NOTE | 2024-09-03 11:23 | CASEMGMT ---
TC received from the pt's [facility] JULISSA, Radha Gupta @ [phone]. Updated the pt's CM with the plan of care. CM denies further questions or concerns at this time.
--- NOTE | 2024-09-03 12:43 | PN_ITS ---
Subjective Subjective Patient seen and examined. She was lying comfortably in bed and had no active complaints. She was agitated last night and had to be given a dose of Haldol. She has remained stable since then. I saw her with her nurse by the bedside. Review of systems otherwise negative. Objective Data Objective Data Vital Signs: Vital Signs Temp Pulse Resp BP Pulse Ox O2 Del Method O2 Flow Rate 98.9 F 92 16 143/83 H 96 Room Air 2 09/03/24 07:52 09/03/24 07:52 09/03/24 07:52 09/03/24 07:52 09/03/24 07:52 09/03/24 07:52 09/02/24 08:08 Oxygen Flow Rate (L/min) 2 Oxygen Delivery Method Room Air Weight: 147 lb 4.301 oz Body Mass Index (BMI) 26.1 Intake & Output: Intake and Output for Last 24 Hours 09/01/24 09/02/24 09/03/24 23:59 23:59 23:59 Intake Total 3303.25 / 3303.25 2036.75 / 2036.75 1710 / 1710 Output Total 490 / 490 375 / 375 1550 / 1550 Balance 2813.25 / 2813.25 1661.75 / 1661.75 160 / 160 Medical Nutrition Assessment Dietitian: Malnutrition Criteria Met Start: 09/01/24 11:12 Freq: Status: Active Protocol: Document 09/01/24 11:12 [facility] (Rec: 09/01/24 11:12 SLA [id number]) Nutrition Malnutrition Evidence of Yes Malnutrition Exists Malnutrition (severe Chronic ): Evidenced By Suboptimal Energy Intake (Severe),Weight Loss (Severe) Clinical Problem Chronic Disease or Condition Related Malnutrition Etiology related to chronic dementia and inadequate energy intake Signs/Symptoms as evidenced by 13.9% wt loss x 3 months and 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 If unable to resume po diet and/or if po intake/wt continue poor, rec consider supplemental nutrition support to help prevent further decline in nutritional status. Lab / Micro Data 09/03/24 05:27 09/03/24 05:27 Labs: Laboratory Results - last 24 hr 09/02/24 16:49: POC Glucose 124 H 09/02/24 21:18: POC Glucose 171 H 09/03/24 05:27: WBC 13.6 H, RBC 4.19 L, Hgb 11.9 L, Hct 36.3 L, MCV 86.6, MCH 28.4, MCHC 32.8, RDW Std Deviation 41.2, RDW Coeff of Gerhard 13.1, Plt Count 233, MPV 9.5, Immature Gran % (Auto) 0.400, Neut % (Auto) 69.5, Lymph % (Auto) 22.8, [place] % (Auto) 6.6, Eos % (Auto) 0.6, Baso % (Auto) 0.1, Absolute Neuts (auto) 9.4 H, Absolute Lymphs (auto) 3.09, Nucleated RBC % 0, Sodium 140, Potassium 3.0 L, Chloride 106, Carbon Dioxide 23.0, Anion Gap 11, BUN 18, Creatinine 0.76, Estim Creat Clear Calc 60.08, Est GFR (MDRD) Non-Af 85, BUN/Creatinine Ratio 23.4 H, Glucose 203 H, Calcium 8.7, Magnesium 1.7 09/03/24 05:36: POC Glucose 194 H Micro: Microbiology 09/01/24 00:18 Blood Culture (Wb) - Right Forearm Blood Culture - Preliminary No growth in 48 hours. 09/01/24 00:46 Urine, Catheterized Urine Culture - Final Citrobacter freundii 09/01/24 03:17 Blood Culture (Wb) - Central Line Bacteria Detection (PCR) - Preliminary 09/01/24 03:17 Blood Culture (Wb) - Central Line Blood Culture - Preliminary Coag Negative Staph Rhythm Strip Rhythm Strip: Sinus Tach Rate: 125 Ectopy: None Physical Exam Const alert and oriented x3 Constitutional Narrative: flat affect Orientation / Consciousness: confused and lethargic HEENT normocephalic, head/scalp atraumatic, hearing grossly normal bilaterally, moist oral mucous membranes and oropharynx normal Eyes PERRL and EOMs intact bilaterally Neck no lymphadenopathy, supple and no JVD Lymph Lymphatic: no lymphedema noted Resp normal respiratory effort, normal air movement, no retractions, no use of accessory muscles and clear to auscultation bilaterally Cardio regular rate, regular rhythm, S1 normal heart sound, S2 normal heart sound and no murmurs GI normal to inspection, nondistended, normoactive bowel sounds, soft to palpation, non-tender and non-distended Extremity normal to inspection, full ROM, normal capillary refill, no clubbing, cyanosis or edema and no calf tenderness General Extremity: no tenderness to palpation of joints or extremities Skin General Skin Exam: no breakdown Neuro no focal motor deficits Neuro Narrative: alert and communicative Motor Exam: general weakness Psych cooperative Mood & Affect: flat affect Assessment & Plan Assessment/Plan (1) Acute cystitis without hematuria: PLAN: Plan #Acute encephalopathy due to cystitis * Patient currently on IV ceftriaxone. Critical care on board. * Blood cultures growing coagulase negative Staph in 1 out of 2 samples. Started on IV vancomycin. ID consulted. Per ID they think is likely coagulase-negative staph. Will therefore hold off on 2D echo for now and repeat blood cultures pending. * urine culture growing Citrobacter freundii * CT brain showed no acute intracranial pathology. WBC is 13.9 today. * #Compression fracture of L3 * Has a history of recurrent falls. This was found on CT during this admission. * MRI lumbar spine showed chronic decompression deformity of T11 and T12 as well as L2 and L3 and mild central canal stenosis at L1-L2. * PT/OT on board * fall precaution * #Mild hypercalcemia: Resolved. #Hypernatremia: resolved. Na is 140. #Hypokalemia: Potassium is 3.0 today. Will replace and trend. #DURAN: Resolved. Creatinine is down to 0.85. #Secondary polycythemia: Hemoglobin was 18.4 on admission. Likely due to dehydration. Should improve with hydration. #Benign essential hypertension: On amlodipine and carvedilol. These were held due to low blood pressure on admission #Paroxysmal A-fib: On carvedilol and Eliquis. Currently transition to Lovenox due to patient's lethargy. #CAD and history of Takotsubo cardiomyopathy: Stable #Type 2 diabetes mellitus: On glipizide. Insulin sliding scale. Accuchecks ACHS. #BURKE: On CPAP nightly #History of bipolar disorder: On fluoxetine and buspirone #Overactive bladder: On mirabegron and tolterodine as well as oxybutynin. These were on hold due to lethargy. #GERD: PPI DVT prophylaxis: On Lovenox Charges/Coding Visit Charges Inpatient E&M: 16274 Subs Hosp L2
--- NOTE | 2024-09-03 13:20 | PCM.PN.ID ---
Physical Exam Narrative Feeling ok, pain improved, no fever Const no apparent distress Orientation / Consciousness: lethargic Resp normal air movement and clear to auscultation bilaterally Cardio regular rate and regular rhythm GI soft to palpation, non-tender and non-distended Skin no rashes or lesions noted ID ID: Route of nutrition/ use of supplements: [] Nutritional Intake: [] IV Site: [] Lopez Catheter: [] Assessment & Plan Assessment/Plan (1) Acute UTI: (2) Acute encephalopathy: (3) Sepsis: QUALIFIERS: Sepsis type: sepsis due to unspecified organism Sepsis acute organ dysfunction status: with acute organ dysfunction Severe sepsis acute organ dysfunction type: encephalopathy Severe sepsis shock status: without septic shock Qualified Code(s): A41.9 - Sepsis, unspecified organism; R65.20 - Severe sepsis without septic shock; G93.41 - Metabolic encephalopathy PLAN: Ucx with citro. 1 of 2 bcx with CoNS, so far consistent with contaminant. Cont ceftriaxone, will stop vanc. DURAN and wbc improved. Will follow (4) Closed L3 vertebral fracture: QUALIFIERS: Encounter type: initial encounter Fracture morphology: unspecified fracture morphology Qualified Code(s): S32.039A - Unspecified fracture of third lumbar vertebra, initial encounter for closed fracture
[2024-09-03 14:00] VITALS: BP 153/78; PULSE 73; RESP 18; TEMP 36.6; O2SAT 94
--- NOTE | 2024-09-03 16:30 | CASEMGMT ---
Social Work This repairer typewriter called patient's for collaboration in discharge planning. No callback from patient's . Presented to patient's room to check-in and to discuss discharge planning if appropriate.? Reintroduced self and role.? Broached recommendation for nursing facility placement at discharge.? Not much of a response from patient verbally, though patient shook head yes and acknowledgment.? During this interaction, patient oriented to person, place, month and president.? Patient could not answer the year or day of the week. Reviewed patient choice list for fpc facilities for patient's geographical region and insurance network which includes quality and star data from Medicare.? Reminded patient that [facility] has no open beds.? The only response patient could provide regarding her choice was [facility].? Again when this repairer typewriter reminded the patient there were no beds, patient indicated that she did not know.? Patient agreed for social work to involve family, or even [facility] manager rn case Radha for input on choices.? -Attempted to call the patient's again and no answer, did not leave a message. -Called the patient's daughter Joo and left a message. -Phone call to [facility] and left a message for manager rn case Radha Gupta.?[phone]. Requested a phone call back if Radha should have any type of contact information for the family. Joo returned phone call. Per phone call: -Joo provided 's correct phone number is [phone].?Demographics updated. - Joo attempted to bring the patient's onto the phone via three-way call, but the patient's did not answer the phone either when Joo called.? -This repairer typewriter broached the need for discharge planning and recommendation for placement.? -Joo confirms patient's first choice would be [facility], as patient has been there many times and has friends there.? -Reviewed and discussed long-term plan for assisted living and waiting on assisted living waiver to come through for the patient as well as the assisted living [facility].? -Joo reports concern that patient is developing dementia as well as the trend of patient doing well when out of facility, but then upon going home a marked decrease in ability for self-care.? It is reported that within the month of the patient being home from [facility], the patient had only showered 2 times.? -Reviewed patient choice list for fpc facilities.? -Joo's first choice would be be [facility] home.? Joo was agreeable with referrals being sent to the [facility], [facility], and [facility].? -Joo plans to further discuss with the patient's and will help to make final decision once known which facilities are willing to accept the patient. Referral sent via care port to identified choices: [facility], [facility], and [facility]. Plan: FPC facility, referrals pending with 3 facilities. -MYA Asher
[2024-09-03] MEDS: Pantoprazole Sodium 40 MG in 0.9% Normal Saline (100mL MB+) 100 ML 330 MG IV (22:59)
[2024-09-03 23:05] VITALS: BP 150/77; PULSE 77; RESP 16; TEMP 36.6; O2SAT 95
[2024-09-04] VITALS (8 sets, daily range): BP systolic 113–147; BP diastolic 67–88; PULSE 73–89; RESP 16–19; TEMP 36.4–36.8; O2SAT 95–97; BMI 25.9
[2024-09-04 06:14] LABS: Hematocrit 38.2 % (37-47); Hemoglobin 12.6 g/dL (12.0-15.0); Immature Granulocytes Count 0.030 X10^3/uL (0.0-0.0); Mean Corp Hgb Conc 33.0 g/dL (32-36); Mean Corpuscular Volume 86.6 fL (81-99); Mean Platelet Vol. 9.3 fl (6.2-12.0); NRBC Flagged by Analyzer 0 % (0-5); Platelet Count 232 K/mm3 (150-450); RBC Distribution Width CV 12.9 % (11.6-14.6); RBC Distribution Width SD 40.9 fl (35.1-43.9); Red Blood Count 4.41 M/mm3 (4.2-5.4); White Blood Count 9.5 K/mm3 (4.4-11.0)
[2024-09-04 06:49] LABS: Anion Gap 12 (5-15); BUN 13 mg/dL (4-19); BUN/Creat Ratio 19.2 RATIO (10-20); Calcium,Total 9.1 mg/dL (7.6-11.0); Carbon Dioxide 23.9 mmol/L (21.0-32.0); Chloride 105 mmol/L (98-108); Estimated Creatinine Clearance 59.95 ml/min (50-250); Glucose 105 mg/dL (70-99); Potassium 3.3 mmol/L (3.3-5.1)
--- NOTE | 2024-09-04 09:02 | CASEMGMT ---
Addendum entered by Anum Soler 09/04/24 09:50: [facility] has declined. SW updated. Anum Soler DC Planning Asst. Original Note: Discharge Planning [facility] has accepted and [facility] has declined. Awaiting response from [facility]. Anum Soler DC Planning Asst.
--- NOTE | 2024-09-04 09:53 | PCM.PN.ID ---
Physical Exam Narrative Feeling better, no fever, no dysuria Const alert and no apparent distress General Appearance: cooperative Resp normal air movement and clear to auscultation bilaterally Cardio regular rate and regular rhythm GI soft to palpation, non-tender and non-distended Skin no rashes or lesions noted ID ID: Route of nutrition/ use of supplements: [] Nutritional Intake: [] IV Site: [] Lopez Catheter: [] Assessment & Plan Assessment/Plan (1) Acute UTI: (2) Acute encephalopathy: (3) Sepsis: QUALIFIERS: Sepsis type: sepsis due to unspecified organism Sepsis acute organ dysfunction status: with acute organ dysfunction Severe sepsis acute organ dysfunction type: encephalopathy Severe sepsis shock status: without septic shock Qualified Code(s): A41.9 - Sepsis, unspecified organism; R65.20 - Severe sepsis without septic shock; G93.41 - Metabolic encephalopathy PLAN: Ucx with citro. 1 of 2 bcx with CoNS, so far consistent with contaminant. Cont ceftriaxone, stop date tomorrow. DURAN and wbc improved. If she leaves today, would have her be on 2 doses bactrim DS bid. Will follow as needed (4) Closed L3 vertebral fracture: QUALIFIERS: Encounter type: initial encounter Fracture morphology: unspecified fracture morphology Qualified Code(s): S32.039A - Unspecified fracture of third lumbar vertebra, initial encounter for closed fracture
--- NOTE | 2024-09-04 11:17 | CASEMGMT ---
Social Work As per [facility], both [facility] and [facility] declined pt, [facility] accepted pt. SW called pt's Eduardo to review d/c plan, message left. SW called daughter Joo to review discharge plan. SW explained that [facility] and [facility] declined pt, and [facility] accepted. SW asked if she would like pt to go to [facility]. Joo states that she would like to speak w/pt if possible to see what she wants. She asked if pt can go home. SW reviewed chart, pt is still needing some assist with ADLs and to walk, SW inquired if pt's can help pt, daughter is not sure. Daughter states maybe she could go home w/home health. SW inquired if she has any aide services through [facility], Joo did not think so. Also as per chart pt is more alert and oriented at this time. SW explained will go in and speak w/pt, if she is more alert and oriented SW will put daughter on the phone w/her. SW did go in and speak w/pt, she is alert and oriented at this time. SW explained to pt that [facility] first choice[facility], does not have any beds. SW explained we spoke w/her daughter as could not reach about other choices. SW explained we tried for [facility] and [facility], both cannot take pt. SW let pt know [facility] accepted her. SW explained her daughter would like to speak to her about the plan. Pt agreeable. SW called daughter and put pt on the phone w/daughter. SW will follow up shortly. HOANG Sorensen
--- NOTE | 2024-09-04 12:14 | CASEMGMT ---
Social Work SW spoke w/pt again, she wants to go home. She is open to home health. SW does have a list of home health agencies for pt, in network w/pt's insurance, in pt's preferred geographic area and complete w/quality and resource use data through [employer]. Pt however has no preference for home health agency. Pt states to ask her CM Radha Smith. SW explained can ask daughter as well. Pt states she has had HHC in the past but does not remember the agency. SW will follow up w/Radha. SW called Radha Smith, with [facility]. Radha explained that pt is approved for the waiver and that [facility] is also. It is this SW's understanding, SW explained to Radha, that [facility] staff still needs trained before they accept pts. SW explained pt wants to return home. Radha states if pt goes home to let her know, she will follow up w/the pt. She does not have a preference for HHC agency. SW called daughter, message left. SW will start the referral process since pt does not have a preference for HHC agency, will continue to follow. HOANG Sorensen
--- NOTE | 2024-09-04 12:25 | PN_ITS ---
Subjective Subjective Patient seen and examined. She was sitting comfortably in her chair and did look much better today. She did say she felt much better. I saw her with her nurse by her bedside. Review of systems otherwise negative. She has remained hemodynamically stable. Objective Data Objective Data Vital Signs: Vital Signs Temp Pulse Resp BP Pulse Ox O2 Del Method O2 Flow Rate 97.5 F L 89 16 147/88 H 97 Room Air 2 09/04/24 08:37 09/04/24 08:37 09/04/24 08:37 09/04/24 08:37 09/04/24 08:37 09/04/24 08:37 09/02/24 08:08 Oxygen Flow Rate (L/min) 2 Oxygen Delivery Method Room Air Weight: 146 lb 9.718 oz Body Mass Index (BMI) 25.9 Intake & Output: Intake and Output for Last 24 Hours 09/02/24 09/03/24 09/04/24 23:59 23:59 23:59 Intake Total 2036.75 / 2036.75 2059 / 2059 Output Total 375 / 375 2049 1000 / 1000 Balance 1661.75 / 1661.75 -1000 / -1000 Medical Nutrition Assessment Dietitian: Malnutrition Criteria Met Start: 09/01/24 11:12 Freq: Status: Active Protocol: Document 09/01/24 11:12 [facility] (Rec: 09/01/24 11:12 SLA [id number]) Nutrition Malnutrition Evidence of Yes Malnutrition Exists Malnutrition (severe Chronic ): Evidenced By Suboptimal Energy Intake (Severe),Weight Loss (Severe) Clinical Problem Chronic Disease or Condition Related Malnutrition Etiology related to chronic dementia and inadequate energy intake Signs/Symptoms as evidenced by 13.9% wt loss x 3 months and 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 If unable to resume po diet and/or if po intake/wt continue poor, rec consider supplemental nutrition support to help prevent further decline in nutritional status. Lab / Micro Data 09/04/24 05:09 09/04/24 05:09 Labs: Laboratory Results - last 24 hr 09/04/24 05:09: WBC 9.5, RBC 4.41, Hgb 12.6, Hct 38.2, MCV 86.6, MCH 28.6, MCHC 33.0, RDW Std Deviation 40.9, RDW Coeff of Gerhard 12.9, Plt Count 232, MPV 9.3, Immature Gran % (Auto) 0.300, Neut % (Auto) 52.6, Lymph % (Auto) 39.1, [place] % (Auto) 5.9, Eos % (Auto) 2.0, Baso % (Auto) 0.1, Absolute Neuts (auto) 5.0, Absolute Lymphs (auto) 3.71, Nucleated RBC % 0, Sodium 141, Potassium 3.3, Chloride 105, Carbon Dioxide 23.9, Anion Gap 12, BUN 13, Creatinine 0.70, Estim Creat Clear Calc 59.95, Est GFR (MDRD) Non-Af 93, BUN/Creatinine Ratio 19.2, G lucose 105 H, Calcium 9.1 Micro: Microbiology 09/01/24 03:17 Blood Culture (Wb) - Central Line Bacteria Detection (PCR) - Final Coag Negative Staph 09/01/24 03:17 Blood Culture (Wb) - Central Line Blood Culture - Preliminary Coag Negative Staph 09/01/24 00:18 Blood Culture (Wb) - Right Forearm Blood Culture - Preliminary No growth in 48 hours. 09/01/24 00:46 Urine, Catheterized Urine Culture - Final Citrobacter freundii Rhythm Strip Rhythm Strip: Sinus Tach Rate: 125 Ectopy: None Physical Exam Const alert and oriented x3 Constitutional Narrative: flat affect General Appearance: cooperative HEENT normocephalic, head/scalp atraumatic, hearing grossly normal bilaterally, moist oral mucous membranes and oropharynx normal Eyes PERRL and EOMs intact bilaterally Neck no lymphadenopathy, supple and no JVD Neck Narrative: Lymph Lymphatic: no lymphedema noted Resp normal respiratory effort, normal air movement, no retractions, no use of accessory muscles and clear to auscultation bilaterally Cardio regular rate, regular rhythm, S1 normal heart sound, S2 normal heart sound and no murmurs GI normal to inspection, nondistended, normoactive bowel sounds, soft to palpation, non-tender and non-distended Extremity normal to inspection, full ROM, normal capillary refill, no clubbing, cyanosis or edema and no calf tenderness General Extremity: no tenderness to palpation of joints or extremities Skin General Skin Exam: no breakdown Neuro no focal motor deficits Neuro Narrative: alert and communicative Motor Exam: general weakness Psych cooperative Psych Narrative: confused Mood & Affect: flat affect Assessment & Plan Assessment/Plan (1) Acute cystitis without hematuria: PLAN: Plan #Acute encephalopathy due to cystitis * Patient currently on IV ceftriaxone. Critical care on board. * Blood cultures growing coagulase negative Staph in 1 out of 2 samples. Started on IV vancomycin. ID on board and thinks it is likely a contaminant * urine culture growing Citrobacter freundii * CT brain showed no acute intracranial pathology. WBC is 13.9 today. * #Compression fracture of L3 * Has a history of recurrent falls. This was found on CT during this admission. * MRI lumbar spine showed chronic decompression deformity of T11 and T12 as well as L2 and L3 and mild central canal stenosis at L1-L2. * PT/OT on board * fall precaution * #Mild hypercalcemia: Resolved. #Hypernatremia: resolved. #Hypokalemia: Resolved. K is 3.3. #DURAN: Resolved. #Secondary polycythemia: Hemoglobin was 18.4 on admission. Likely due to dehydration. Should improve with hydration. #Benign essential hypertension: On amlodipine and carvedilol. These were held due to low blood pressure on admission #Paroxysmal A-fib: On carvedilol and Eliquis. Currently transition to Lovenox due to patient's lethargy. #CAD and history of Takotsubo cardiomyopathy: Stable #Type 2 diabetes mellitus: On glipizide. Insulin sliding scale. Accuchecks ACHS. #BURKE: On CPAP nightly #History of bipolar disorder: On fluoxetine and buspirone #Overactive bladder: On mirabegron and tolterodine as well as oxybutynin. These were on hold due to lethargy. #GERD: PPI DVT prophylaxis: On Lovenox Disposition: Awaiting placement. Charges/Coding Visit Charges Inpatient E&M: 75887 Subs Hosp L2
--- NOTE | 2024-09-04 12:26 | CASEMGMT ---
Addendum entered by Anum Soler 09/04/24 12:43: [facility] has accepted and is AOC> [facility] asked to cancel referral. SW updated. Anum Soler DC Planning Asst. Original Note: Discharge Planning HH referral sent to [facility] and [facility]. Anum Soler DC Planning Asst.
--- NOTE | 2024-09-04 14:04 | CASEMGMT ---
Social Work Pt was accepted by [facility]. SW called pt's daughter to let her know. She is concerned pt will discontinue to [facility], but thinks Radha Smith from [facility] can be helpful in making sure pt does what she needs to do,she states that the pt listens to Radha. SW did let daughter know will let Radha know tomorrow when pt is d/c and send her pt's d/c instructions so Radha can follow up. Daughter asked if SW spoke w/her dad(pt's ). SW explained called and left a message earlier, he has not called back. SW explained will try again tomorrow. SW also educated daughter on the Medicaid waiver for [place], and that going to [facility] under the Waiver may be a possibility soon. She states pt agrees to go sometimes, and other times does not. SW encouraged daughter to stay in touch w/Radha regarding the waiver. Daughter states understanding. She states if we cannot reach pt's tomorrow she is off work and can pharmacy picking tech pt. SW will continue to follow. HOANG Sorensen
[2024-09-04] MEDS: Pantoprazole Sodium 40 MG in 0.9% Normal Saline (100mL MB+) 100 ML 330 MG IV (20:19)
[2024-09-04] MEDS: 0.9% Normal Saline (250mL Bag) 250 ML 15 ML IV (22:17)
[2024-09-05 02:11] VITALS: BP 150/72; PULSE 77; RESP 16; TEMP 36.6; O2SAT 97
[2024-09-05 04:12] VITALS: BMI 25.7
[2024-09-05 06:50] LABS: Hematocrit 38.2 % (37-47); Hemoglobin 12.7 g/dL (12.0-15.0); Immature Granulocytes Count 0.030 X10^3/uL (0.0-0.0); Mean Corp Hgb Conc 33.2 g/dL (32-36); Mean Corpuscular Volume 87.0 fL (81-99); Mean Platelet Vol. 10.1 fl (6.2-12.0); NRBC Flagged by Analyzer 0 % (0-5); Platelet Count 239 K/mm3 (150-450); RBC Distribution Width CV 12.7 % (11.6-14.6); RBC Distribution Width SD 40.4 fl (35.1-43.9); Red Blood Count 4.39 M/mm3 (4.2-5.4); White Blood Count 9.2 K/mm3 (4.4-11.0)
[2024-09-05 07:22] LABS: Anion Gap 12 (5-15); BUN 16 mg/dL (4-19); BUN/Creat Ratio 22.6 RATIO (10-20); Calcium,Total 9.0 mg/dL (7.6-11.0); Carbon Dioxide 23.7 mmol/L (21.0-32.0); Chloride 106 mmol/L (98-108); Estimated Creatinine Clearance 59.75 ml/min (50-250); Glucose 137 mg/dL (70-99); Potassium 3.3 mmol/L (3.3-5.1)
[2024-09-05 09:52] VITALS: BP 137/84; PULSE 87; RESP 16; TEMP 36.4; O2SAT 98
--- NOTE | 2024-09-05 13:17 | DS.PCM_ITS ---
Providers Date of Admission: 09/01/24 Date of Discharge: 09/05/24 Primary Care Physician: ORESTES Cano Consultations 09/01/24 04:14 Consult: Casing Puller / Pulmonary Medicine Routine Consulting Provider: Intensivists/Pulmonary Med Reason for Consult: Sepsis, septic encephalopathy, UTI and L3 compression fracture. EMERGENT Consult: No Notified: Yes Date Notified: 09/01/24 Time Notified: 06:05 Method of Notification: Text 09/02/24 07:47 Consult: Infectious Disease Routine Consulting Provider: Prem Toro Reason for Consult: gram positive bacteremia EMERGENT Consult: No Notified: Yes Date Notified: 09/02/24 Time Notified: 08:12 Method of Notification: Answering Service Reason For Visit: SEPSIS 2/2 UTI, SEPTIC ENCEPHALOIPATHY, LE Diagnosis Discharge Diagnosis (1) Acute cystitis without hematuria: Status: Acute Code(s): N30.00 - Acute cystitis without hematuria Plan #Acute encephalopathy due to cystitis * Patient currently on IV ceftriaxone. Critical care on board. * Blood cultures growing coagulase negative Staph in 1 out of 2 samples. Started on IV vancomycin. ID on board and thinks it is likely a contaminant * urine culture growing Citrobacter freundii * CT brain showed no acute intracranial pathology. WBC is 13.9 today. * #Compression fracture of L3 * Has a history of recurrent falls. This was found on CT during this admission. * MRI lumbar spine showed chronic decompression deformity of T11 and T12 as well as L2 and L3 and mild central canal stenosis at L1-L2. * PT/OT on board * fall precaution * #Mild hypercalcemia: Resolved. #Hypernatremia: resolved. #Hypokalemia: Resolved. K is 3.3. #DURAN: Resolved. #Secondary polycythemia: Hemoglobin was 18.4 on admission. Likely due to dehydration. Should improve with hydration. #Benign essential hypertension: On amlodipine and carvedilol. These were held due to low blood pressure on admission #Paroxysmal A-fib: On carvedilol and Eliquis. Currently transition to Lovenox due to patient's lethargy. #CAD and history of Takotsubo cardiomyopathy: Stable #Type 2 diabetes mellitus: On glipizide. Insulin sliding scale. Accuchecks ACHS. #BURKE: On CPAP nightly #History of bipolar disorder: On fluoxetine and buspirone #Overactive bladder: On mirabegron and tolterodine as well as oxybutynin. These were on hold due to lethargy. #GERD: PPI DVT prophylaxis: On Lovenox Disposition: Awaiting placement. Medications at Discharge Home Medications apixaban 2.5 mg tablet (Eliquis) 2.5 mg PO BID blood thinner 02/14/24 ergocalciferol (vitamin D2) 1,250 mcg (50,000 unit) capsule (Vitamin D2) 1,250 mcg PO SA vitamin 04/20/24 fexofenadine 180 mg tablet 180 mg PO DAILY allergies 04/20/24 glipizide 10 mg tablet 10 mg PO DAILY diabetes 04/20/24 atorvastatin 20 mg tablet 20 mg PO QHS cholesterol #0 tabs 04/24/24 carvedilol 3.125 mg tablet 3.125 mg PO BIDCM blood pressure #0 tabs 04/24/24 fluoxetine 40 mg capsule 40 mg PO BID #0 caps 04/24/24 gabapentin 100 mg capsule 100 mg PO TID nerve pain #0 caps 04/24/24 pantoprazole 40 mg tablet,delayed release 40 mg PO BID reflux #0 tabs 04/24/24 tolterodine 4 mg capsule,extended release 24 hr 4 mg PO DAILY #0 caps 04/24/24 acetaminophen 325 mg tablet 650 mg PO Q4H PRN Fever, pain 1-11/2105/13/24 buspirone 15 mg tablet 15 mg PO BID mental health 05/13/24 donepezil 10 mg tablet 10 mg PO DAILY memory 05/13/24 mirabegron 50 mg tablet,extended release 24 hr 50 mg PO DAILY bladder 05/13/24 Remove Patch 2 patch topical DAILY@2200 ##0 05/16/24 aluminum-mag hydroxide-simethicone 400 mg-400 mg-40 mg/5 mL oral susp (Mag-Al Plus Extra Strength) 30 ml PO Q6H PRN PRN Gastric Burning #0 mL 05/16/24 amlodipine 10 mg tablet 10 mg PO DAILY #60 tabs 05/16/24 hydroxyzine pamoate 25 mg capsule 25 mg PO TID PRN PRN severe anxiety #0 caps 05/16/24 insulin lispro 100 unit/mL subcutaneous pen (Humalog KwikPen (U-100) Insulin) See Protocol subcut ACHS #0 mL 05/16/24 lidocaine 5 % topical patch 2 patch topical DAILY #0 ea 05/16/24 melatonin 3 mg tablet 3 mg PO QHS PRN PRN Insomnia #0 tabs 05/16/24 potassium chloride 20 mEq tablet,extended release(part/cryst) 20 meq PO BIDCM #0 tabs 05/16/24 sennosides 8.6 mg-docusate sodium 50 mg tablet (Stimulant Laxative Plus) 2 tab PO BID PRN PRN Constipation #0 tabs 05/16/24 tizanidine 2 mg tablet 2 mg PO Q8H PRN PRN muscle spasms/strain #0 tabs 05/16/24 nitrofurantoin monohydrate/macrocrystals 100 mg capsule 1 cap PO Q12.TCU 05/19/24 oxybutynin chloride 15 mg tablet,extended release 24 hr PO 05/19/24 tramadol 50 mg tablet 50 mg PO Q6H PRN pain 3 days #12 tabs 05/19/24 sulfamethoxazole 800 mg-trimethoprim 160 mg tablet (Bactrim DS) 1 tab PO BID #2 tabs 09/05/24 Hospital Course Operations None Procedures None Summary of Care Provided Minutes Spent on Discharge: 45 Hospital Course: Patient is a 68-year-old female with a past medical history as outlined who was admitted through the ED on September 01, 2024 with complaint of altered mental status. She had a known history of reflux esophagitis and gastric and duodenal ulcers as well as chronic dementia, among others. She was a poor historian and could not provide any further information. She was found down at home and confused. She was not really a reliable historian. EMS found her in a urine soaked diaper which they estimated had been on for about 3 days. Her was home with her and says she sometimes got like that from time to time but he had had no intention of calling 911 or bringing her to the hospital. In the ER urinalysis showed evidence of UTI. She was also febrile with a leukocytosis of 23.7 thousand and lactic acid was also elevated at 2.2. Calcium was mildly elevated at 11.2. CPK was [address] spine showed interval development of L3 vertebral body fracture. Chest x-ray showed no acute cardiopulmonary findings and CT brain showed no acute intracranial pathology. She was admitted to be managed for sepsis due to UTI as well as acute encephalopathy. She was started on broad-spectrum antibiotics and admitted to the ICU. She was hydrated with IV fluids and critical care was consulted. Blood cultures came back growing Staph epidermidis in 1 out of 2 samples. ID was consulted and thought was more likely a contaminant. She improved and was transferred out of the ICU. She did work with physical therapy and initial plan was for her to go to a jail facility. However she subsequently decided to go home. She was on IV ceftriaxone as urine cultures grew pansensitive E. coli. She was also started on vancomycin on account of the Staph epidermidis. She was discharged home with home health on 09/05/2024. Per ID recommendation she was discharged on double strength Bactrim for 2 doses. She is to follow-up with her primary care doctor within 1 to 2 weeks. Patient seen and examined prior to discharge. She had no active complaints and had an uneventful night. Review of systems otherwise negative. Labs and vitals reviewed. Home medication reviewed and reconciled. Physical Exam Const alert and oriented x3 Constitutional Narrative: flat affect General Appearance: cooperative and comfortable HEENT normocephalic, head/scalp atraumatic, hearing grossly normal bilaterally, moist oral mucous membranes and oropharynx normal Mouth: oral and palatal mucosa normal Eyes PERRL, EOMs intact bilaterally and conjunctivae normal Neck no lymphadenopathy, supple and no JVD Neck Narrative: Lymph Lymphatic: no lymphedema noted Resp normal respiratory effort, normal air movement, no retractions, no use of accessory muscles and clear to auscultation bilaterally Cardio regular rate, regular rhythm, S1 normal heart sound, S2 normal heart sound and no murmurs GI normal to inspection, nondistended, normoactive bowel sounds, soft to palpation, non-tender and non-distended Extremity normal to inspection, full ROM, normal capillary refill, no clubbing, cyanosis or edema and no calf tenderness General Extremity: no tenderness to palpation of joints or extremities Skin Skin Narrative: Patient did have erythema throughout sacral area with no other rashes or lesions noted. General Skin Exam: no breakdown Neuro no focal motor deficits Neuro Narrative: alert and communicative Motor Exam: general weakness Psych cooperative Psych Narrative: confused Mood & Affect: flat affect Medical Records Data Medical Nutrition Assessment Dietitian: Malnutrition Criteria Met Start: 09/01/24 11:12 Freq: Status: Active Protocol: Document 09/01/24 11:12 [facility] (Rec: 09/01/24 11:12 [facility] [id number]) Nutrition Malnutrition Evidence of Yes Malnutrition Exists Malnutrition (severe Chronic ): Evidenced By Suboptimal Energy Intake (Severe),Weight Loss (Severe) Clinical Problem Chronic Disease or Condition Related Malnutrition Etiology related to chronic dementia and inadequate energy intake Signs/Symptoms as evidenced by 13.9% wt loss x 3 months and 20.9% wt loss x 7 months lpta and 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 If unable to resume po diet and/or if po intake/wt continue poor, rec consider supplemental nutrition support to help prevent further decline in nutritional status. Weight / BMI Weight Weight: 145 lb 8.081 oz Body Mass Index (BMI) 25.7 ABG / Lab / Microbiology Data 09/05/24 04:55 09/05/24 04:55 Laboratory: Laboratory Results - last 24 hr 09/05/24 04:55: WBC 9.2, RBC 4.39, Hgb 12.7, Hct 38.2, MCV 87.0, MCH 28.9, MCHC 33.2, RDW Std Deviation 40.4, RDW Coeff of Gerhard 12.7, Plt Count 239, MPV 10.1, Immature Gran % (Auto) 0.300, Neut % (Auto) 49.3, Lymph % (Auto) 41.5 H, Faulkner % (Auto) 6.2, Eos % (Auto) 2.6, Baso % (Auto) 0.1, Absolute Neuts (auto) 4.5, Absolute Lymphs (auto) 3.82, Nucleated RBC % 0, Sodium 142, Potassium 3.3, Chloride 106, Carbon Dioxide 23.7, Anion Gap 12, BUN 16, Creatinine 0.73, Estim Creat Clear Calc 59.75, Est GFR (MDRD) Non-Af 89, BUN/Creatinine Ratio 22.6 H, G lucose 137 H, Calcium 9.0 Microbiology: Microbiology 09/01/24 03:17 Blood Culture (Wb) - Central Line Bacteria Detection (PCR) - Final Coag Negative Staph 09/01/24 03:17 Blood Culture (Wb) - Central Line Blood Culture - Final Staphylococcus warneri 09/01/24 00:18 Blood Culture (Wb) - Right Forearm Blood Culture - Preliminary No growth in 48 hours. 09/01/24 00:46 Urine, Catheterized Urine Culture - Final Citrobacter freundii D/C Instructions Discharge Activity: Return to Normal Activity Weight Bearing Status: Weight bearing as tolerated Call your doctor if you observe: Fever of 101 or Higher, Shortness of breath, Dizziness, Swelling in the ankles and Chest pain DC O2, CPAP, BIPAP Needs Home O2 Discharge instructions: No DC home with Oxygen: No Meaningful Use Info Meaningful Use Meaningful Use Diagnoses (Choose all that apply): None applicable Discharge Plan Admission Admit Date/Time: 09/01/24 02:49 Primary Reason for Your Visit: UTI, acute encephalopathy Attending Provider: Jordana Hopkins Primary Care Provider: Rupal Boyer Consulting Providers: Coy Noel; Prem Toro Instructions Patient Instructions: ED UTIs Women Discharge Orders/Prescriptions Prescriptions: New sulfamethoxazole-trimethoprim [Bactrim DS] 800-160 mg tablet 1 tab PO BID Qty: 2 0RF Continued Eliquis 2.5 mg tablet 2.5 mg PO BID glipizide 10 mg tablet 10 mg PO DAILY fexofenadine 180 mg tablet 180 mg PO DAILY ergocalciferol (vitamin D2) [Vitamin D2] 1,250 mcg (50,000 unit) capsule 1,250 mcg PO SA Rx Instructions: TAKES EVERY WEEK ON SUNDAY AT BEDTIME fluoxetine 40 mg Capsule 40 mg PO BID Qty: 0 0RF carvedilol 3.125 mg Tablet 3.125 mg PO BIDCM Qty: 0 0RF atorvastatin 20 mg Tablet 20 mg PO QHS Qty: 0 0RF tolterodine 4 mg Capsule,Extended Release 24hr 4 mg PO DAILY Qty: 0 0RF pantoprazole 40 mg Tablet,Delayed Release (Dr/Ec) 40 mg PO BID Qty: 0 0RF gabapentin 100 mg Capsule 100 mg PO TID Qty: 0 0RF donepezil 10 mg tablet 10 mg PO DAILY buspirone 15 mg tablet 15 mg PO BID mirabegron 50 mg tablet extended release 24 hr 50 mg PO DAILY acetaminophen 325 mg Tablet 650 mg PO Q4H PRN (Reason: Fever, pain 1-11/21) lidocaine 5 % Adhesive Patch,Medicated 2 patch topical DAILY Qty: 0 0RF Protocol: *Topical Application Instructions APPLICATION INSTRUCTIONS: back, s/p fall insulin lispro [Humalog KwikPen Insulin] 100 unit/mL Insulin Pen See Protocol subcut ACHS Qty: 0 0RF Protocol: 3. Sliding Scale Insulin Med Dosing Condition: 150-189 mg/dl = 1 unit Condition: 190-229 mg/dl = 2 units Condition: 230-269 mg/dl = 3 units Condition: 270-309 mg/dl = 4 units Condition: 310-349 mg/dl = 5 units Condition: 350-399 mg/dl = 6 units Condition: 400-449 mg/dl = 7 units Condition: Greater than 449 call physician Protocol Text: - Use for Total Daily Dose of Insulin 37-55 units - Obsese, infected, or steroid patients MEDIUM DOSING ALGORITHIM tizanidine 2 mg Tablet 2 mg PO Q8H PRN PRN (Reason: muscle spasms/strain) Qty: 0 0RF sennosides-docusate sodium [Stimulant Laxative Plus] 8.6-50 mg Tablet 2 tab PO BID PRN PRN (Reason: Constipation) Qty: 0 0RF melatonin 3 mg Tablet 3 mg PO QHS PRN PRN (Reason: Insomnia) Qty: 0 0RF potassium chloride 20 mEq Tablet,Er Particles/Crystals 20 meq PO BIDCM Qty: 0 0RF alum-mag hydroxide-simeth [Mag-Al Plus Extra Strength] 400-400-40 mg/5 mL Suspension 30 ml PO Q6H PRN PRN (Reason: Gastric Burning) Qty: 0 0RF hydroxyzine pamoate 25 mg Capsule 25 mg PO TID PRN PRN (Reason: severe anxiety) Qty: 0 0RF Remove Patch 2 patch topical DAILY@2200 Qty: 0 0RF amlodipine 10 mg tablet 10 mg PO DAILY Qty: 60 0RF oxybutynin chloride 15 mg tablet extended release 24hr PO nitrofurantoin monohyd/m-cryst 100 mg capsule 1 cap PO Q12.TCU tramadol 50 mg tablet 50 mg PO Q6H PRN (Reason: pain) 3 Days Qty: 12 0RF Referrals / Follow Up: Rupal Boyer, [employer] [Primary Care Provider] - Within 1 Week Disposition Disposition (needs filled in before D/C Order can be placed): Home Health Service Charges/Coding Visit Charges Inpatient E&M: 27908 Disch Hosp >30min
--- NOTE | 2024-09-05 14:09 | CASEMGMT ---
Discharge Planning Discharge Instructions sent to Ronna LIPSCOMB. Anum Soler DC Planning Asst.
--- NOTE | 2024-09-05 14:18 | CASEMGMT ---
Social Work Pt is going home today w/[facility]. DAVIS called pt's , he answered. SW let him know pt is discharging home today, let him know [facility] was set up. 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 SW did call daughter to let her know also, she was aware. Daughter Joo then went on to express her frustration w/her parents and not taking care of themselves. She states pt is a hoarder, and her just isn't able to clean due to his health conditions. Daughter states she went to their home today and it smells really bad. She states there was a turkey in a cooler defrosting but it's been there for two weeks, and pt and have not thrown it out. Daughter wanted to throw it away and pt's did not want her to, states he will do it. Daughter expressed frustration w/both pt not taking care of herself and this cycle of her coming into the hospital over and over. DAVIS offered support. Daughter states that pt never wants to come to the hospital so her won't bring her until she is confused and really needs to come in. DAVIS offered support to her daughter, reminded her that though this is difficult, her mother can still make her own decisions. DAVIS offered to call APS, daughter does not want SW to do this. She is agreeable to DAVIS calling Radha Smith again to let her know daughter's concerns and ask her to call her. DAVIS called Radha and updated her on pt's daughter's concerns and asked her to call daughter, she will do so. Radha will continue to encourage pt to go to [facility] once they open it up to waiver pts. DAVIS faxed Radha the discharge instructions and summary. No further needs at this time. HOANG Sorensen
[2024-09-05 14:53] VITALS: BP 137/77; PULSE 80; RESP 16; TEMP 36.5; O2SAT 94
== END 2024-09-05 15:34 | disposition home health service (06) | DRG 871 ==
LOC: ED 01:36 → ICU 03:56 → PCU 23:58
PROVIDERS: Admitting Provider Internal Medicine; Emergency Provider Emergency Medicine; PCP Nurse Practitioner Family; Visit Provider Student in an Organized Health Care Education/Training Program
DX: A41.89 Other specified sepsis (principal); G93.41 Metabolic encephalopathy; E43 Unspecified severe protein-calorie malnutrition; E87.0 Hyperosmolality and hypernatremia; F03.911 Unspecified dementia, unspecified severity, with agitation; S32.039A Unspecified fracture of third lumbar vertebra, initial encounter for closed fracture; F03.93 Unspecified dementia, unspecified severity, with mood disturbance; F03.94 Unspecified dementia, unspecified severity, with anxiety; N17.9 Acute kidney failure, unspecified; N30.00 Acute cystitis without hematuria; L89.151 Pressure ulcer of sacral region, stage 1; E11.40 Type 2 diabetes mellitus with diabetic neuropathy, unspecified; D75.1 Secondary polycythemia; E86.0 Dehydration; L40.50 Arthropathic psoriasis, unspecified; I10 Essential (primary) hypertension; G25.81 Restless legs syndrome; I34.0 Nonrheumatic mitral (valve) insufficiency; I48.0 Paroxysmal atrial fibrillation; E83.52 Hypercalcemia; I25.2 Old myocardial infarction; E78.5 Hyperlipidemia, unspecified; K21.9 Gastro-esophageal reflux disease without esophagitis; I25.10 Atherosclerotic heart disease of native coronary artery without angina pectoris; Z79.4 Long term (current) use of insulin; G47.33 Obstructive sleep apnea (adult) (pediatric); J30.2 Other seasonal allergic rhinitis; M19.90 Unspecified osteoarthritis, unspecified site; W19.XXXA Unspecified fall, initial encounter; I35.1 Nonrheumatic aortic (valve) insufficiency; R65.20 Severe sepsis without septic shock; M48.061 Spinal stenosis, lumbar region without neurogenic claudication; E87.6 Hypokalemia; R74.01 Elevation of levels of liver transaminase levels; R74.8 Abnormal levels of other serum enzymes; N32.81 Overactive bladder; Z79.01 Long term (current) use of anticoagulants; Z79.84 Long term (current) use of oral 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 drugs; Z87.11 Personal history of peptic ulcer disease; Z91.81 History of falling; Z86.79 Personal history of other diseases of the circulatory system; Z87.19 Personal history of other diseases of the digestive system; Z79.899 Other long term (current) drug therapy; Z87.891 Personal history of nicotine dependence; Z68.25 Body mass index [BMI] 25.0-25.9, adult
CPT/HCPCS: 36415; 51702; 70450; 71045; 72148; 74176; 80048; 80053; 80061; 81001; 82550; 82607; 82746; 82803; 82962; 83036; 83605; 83735; 83970; 84443; 84484; 85025; 85379; 85610; 85730; 87040; 87077; 87086; 87088; 87149; 87186; 92526; 92610; 93005; 97162; 97165; 97530; 97535; 97802; 97803; 99285; A4216; C1751; J0696; J2405

== ENCOUNTER 2024-11-07 22:06 | Inpatient (IN) | payer MEDICARE, MEDICAID, SELFPAY ==
--- OUTSIDE RECORDS SUMMARY | 2024-08-11 09:47 | XMS RPT_ITS ---
Author Name Auto Generated Organization OHIP Care Team Providers [employer] Name Role Phone DEAN THEODORE Attending Unavailable SHARLA, RUDY Primary Care Unavailable SHARLA, RUDY Primary Care Unavailable DEAN THEODORE Referring Unavailable SHARLA, RUDY Primary Care Unavailable DEAN THEODORE Referring Unavailable SHARLA, RUDY Primary Care Unavailable JEROMY LAI Attending Unavaila ble PROBLEMS DATE TYPE CONDITION / CODE ATTENDING STATUS [facility] 08/11/2024 Active Age-related osteoporosis without current pathological fracture / M81.0(ICD-10) JEROMY LAI Active [facility] 06/20/2024 Active Lytic bone lesio ns on xray / M89.8X9(ICD-10) NA Active [facility] 06/20/2024 Active 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 / D72.828(ICD-10) NA Active [facility] 06/20/2024 Active Lytic lesion of bone on x-ray / M89.8X9(ICD-10) DEAN THEODORE Active [facility] 06/20/2024 Active Osteoporosis wit hout current pathological fracture, unspecified osteoporosis type / M81.0(ICD-10) DEAN THEODORE Active [facility] PROCEDURES No Procedure Records Found RESULTS [facility] Observed: 09/08/2024 12:00 AM Status: COMPLETED Source: [place] Letter Text PROGRESS Observed: 08/11/2024 10:12 AM Status: COMPLETED Source: [place] HNO ID: [id number] Author: JEROMY LAI MD Service: ? Author Type: Physician Type: Progress Notes Filed: 08/11/2024 17:40 Note Text: Endocrinology and Metabolism [place] [facility] Visit Note NAME: Luba Benavidez is a 68 year old old female PCP: Rudy Boyer NP Requesting Provider: Dean Theodore MD [address] [facility] [id number] My final recommendations will be communicated back to the requesting physician by way of shared medical record or letter via US mail. Chief Complaint: HPI: Luba Benavidez is a 68 year old female here to discuss bone health. PMHx significant for Type 2 DM, HLD, HTN, GERD on PPI, Osteoarthritis, Psoriatic arthropathy, Takotsuko's cardiomyopathy, Major depression She is accompanied by her today Calcium: Minimal calcium intake; does not consume milk, yogurt, or cheese. Vitamin D: was taking supplements, stopped when she went to rehab in 2022 Dietary and supplemental calcium intakes are inadequate. Prior use of antiresporptives or other medications: previously was on fosamax, does not know when it was started, but discontinued in 2022 after she went to rehab She could not remember why she was at the rehab at that time, reports she had multiple health issues one after the other and was sent to rehab multiple times Also reports her is going through some health issues currently Physical activity consists of physical therapy at the rehab, which she reports to be continuing, while chart review from Dr. Theodore's documentation shows that she was advised by her orthopedic to stop physical therapy. Patient has problem with balance. She reports she has been looking for back brace Fall prevention:using walker for ambulation, recently transitioned from a wheelchair. Prior fragility fractures: fractures both hips- latest was right hip in 2023 Height loss: lost from 5'8.5 to 5'3 Kidney stones: no Weight change: lost weight due to not eating at the rehab, reports she has been eating better since being back home on last History of corticosteroid use: short duration for respiratory issues History of malabsorption: no known history History of certain medication use: eliquis for few (5-6) years for Broken heart syndrome Current or recent tobacco use: 16 to 31 years, 1 pack per week Caffeine intake: Drinks tea daily; has weaned off Pepsi and now consumes [place] [employer] iced tea. Alcohol use: no Use of lithium or thiazides: no History of hyperparathyroidism: no Dental appointment: no recent appt, denied nay active dental issues History of estrogen use: no Menopause: had right oophorectomy and hysterectomy at age 25 due to a tumor (surgical pathology wad benign), had left ovary intact She has no history of eating disorder Cancer history: no- she has seen Dr. Theodore and all the work up for cancer was negative including bone biopsy for the multiple sclerotic lesions History of radiation exposure: no Family history of osteoporosis, calcium, or bone disorders: Osteoporosis in mother and grandmother Family history of hip fractures: no Other endocrine diseases: not known PAST MEDICAL HISTORY Diagnosis Date Anxiety state Chronic narcotic use Percocet 4 times daily 2005 until Depressive disorder, not elsewhere classified whole adult life Esophageal reflux Generalized anxiety disorder 02/12/2005 Dr. Borges Generalized osteoarthrosis, unspecified site Hip fracture (HCC) Lumbago 06/05/2004 fractured L5; follows with DR. LINDSEY Morbid obesity (HCC) since quit smoking Osteopenia Osteoporosis Type II or unspecified type diabetes mellitus without mention of complication, not stated as uncontrolled late 40's Unspecified essential hypertension late 40's Unspecified urinary incontinence late 40's urgency AND stress-induced PAST SURGICAL HISTORY Procedure Laterality Date EXC LESION TDN SHTH/JT CAPSL HAND/FNGR Right 04/16/2015 Right index trigger finger release FASCIOTOMY PALMAR OPEN PARTIAL Right 07/02/2015 Dupuytren's contracture excision HIP SURGERY HX Left 07/2022 INCISE FINGER TENDON SHEATH Right 07/02/2015 Right ring trigger finger release NEUROPLASTY AND/TRANSPOSITION ULNAR NERVE ELBOW Right 07/02/2015 Right elbow ulnar nerve decompression OOPHORECTOMY PARTIAL/TOTAL UNI/BI 02/12/1979 Oophorectomy rt PAST SURGICAL HISTORY OF - carpal tunnel and trigger finger, right; Dr. Serrano REPAIR FIRST ABDOMINAL WALL HERNIA 02/12/1997 Hernia repair, incisional RPR RECRT INCAL/VNT HERNIA REDUCIBLE 04/08/2012 with removal of old mesh TONSILLECTOMY PRIMARY/SECONDARY <AGE 12 02/12/1957 Tonsillectomy TOTAL ABDOMINAL HYSTERECT W/WO RMVL TUBE OVARY 02/12/1982 and bladder sling; BENIGN (fibroids) Current Outpatient Medications on File Prior to Visit Medication Sig busPIRone (BUSPAR) 7.5 mg tablet Take by mouth. fexofenadine (ROC) 180 mg tablet Take by mouth once daily. tolterodine ER (DETROL LA) 4 mg 24 hr capsule 4 mg. amLODIPine (NORVASC) 10 mg tablet Take 10 mg by mouth once daily. senna-docusate (SENNA-S) 8.6-50 mg per tablet Take 2 tablets by mouth daily at 6 am. multivitamin,therapeutic (THERAPEUTIC MULTIVITAMIN ORAL) Take 1 tablet by mouth once daily. donepezil (ARICEPT) 10 mg tablet Take 10 mg by mouth daily at 6 am. apixaban (ELIQUIS) 2.5 mg tab(s) Take 2.5 mg by mouth two times a day. Vitamin A AND D2 1,250-135 unit cap Take 1 tablet by mouth once daily. gabapentin (NEURONTIN) 300 mg capsule Take 300 mg by mouth three times a day. hydrOXYzine pamoate (VISTARIL) 25 mg capsule Take 25 mg by mouth three times a day as needed. aluminum AND magnesium hydroxide-simethicone (MAG-AL PLUS EXTRA STRENGTH) 400-400-40 mg/5 mL suspension Take 30 mL by mouth every 6 hours as needed. melatonin 3 mg capsules Take 1 capsule by mouth daily at bedtime. mirabegron (MYRBETRIQ) 50 mg Tb24 Take 50 mg by mouth daily at [address] (PROTONIX) 40 mg tablet Take 40 mg by mouth once daily. potassium chloride ER (KLOR-CON) 20 mEq tablet Take 20 mEq by mouth two times a day. atorvastatin (LIPITOR) 20 mg tablet Take 20 mg by mouth once daily. bisacodyl (DULCOLAX) 10 mg supp 10 mg by RECTAL route once daily as needed for constipation. mineral oil (FLEET MINERAL OIL ENEMA) enema 133 mL by RECTAL route as needed for constipation. traMADol (ULTRAM) 50 mg tablet Take 50 mg by mouth every 8 hours as needed for pain. lisinopril (ZESTRIL) 20 mg tablet Take 20 mg by mouth once daily. magnesium hydroxide (MILK OF MAGNESIA) 400 mg/5 mL suspension Take 30 mL by mouth once daily as needed for constipation. carvedilol (COREG) 3.125 mg tablet Take 3.125 mg by mouth twice daily with meals. acetaminophen (TYLENOL) 325 mg tablet Take 500 mg by mouth every 4 hours as needed. 2 tablets FLUoxetine HCl (PROZAC) 40 mg capsule Take 40 mg by mouth once daily. glipiZIDE 10 mg tablet Take 1 tablet by mouth daily before breakfast. Senna 8.6 mg tab Take 8.6 mg by mouth two times a day as needed for constipation. (Patient not taking: Reported on 08/11/2024) cetirizine (ZYRTEC) 10 mg tablet Take 10 mg by mouth once daily. (Patient not taking: Reported on 08/11/2024) OTC PRODUCT Apply to affected area once daily. Lidocaine External Patch Apply to back topically in the morning for pain. Remove at bedtime. (Patient not taking: Reported on 08/11/2024) iv contrast (will be provided with radiology test) CT ABD/PEL -Inject, intravenously, once for 1 dose.No IV access, insert saline lock prior to the beginning of sedation, infusion, injection of imaging exam. Discontinue saline lock post exam. If Pt. has a central line or IVAD, may access for administration according to line specific nursing protocol. Once exam is complete flush line and de-access according to line specific nursing protocol in the CT contrast administration guidelines link. enteric contrast (will be provided with radiology test) For CT ABD/PEL W IVCON Routine order Administer, As Directed One Time Only, via Oral, Rectal, both Oral and Rectal, Enteric Tube, Stoma or Indwelling Catheter, Enteric Contrast as designated per enteric contrast guidelines Multivitamin capsule Take 1 capsule by mouth once daily. (Patient not taking: Reported on 06/20/2024) oxyCODONE-acetaminophen (PERCOCET) 5-325 mg tablet Take 1 tablet by mouth twice daily as needed for Pain for up to 30 days. oxyCODONE-acetaminophen (PERCOCET) 5-325 mg tablet Take 1 tablet by mouth twice daily as needed for Pain for up to 30 days. oxyCODONE-acetaminophen (PERCOCET) 5-325 mg tablet Take 1 tablet by mouth twice daily as needed for Pain for up to 30 days. tiZANidine (ZANAFLEX) 4 mg tablet Take 1 tablet by mouth twice daily as needed. VITAMIN D 50,000 unit capsule Take 1 capsule by mouth once each week. (Patient not taking: Reported on 06/20/2024) PROCHLORPERAZINE MALEATE (COMPAZINE ORAL) Take 1 tablet by mouth. (Patient not taking: Reported on 09/04/2022) MECLIZINE HCL (MECLIZINE ORAL) Take 1 tablet by mouth. (Patient not taking: Reported on 09/04/2022) TENS Units logan 1 Device as needed. (Patient not taking: Reported on 06/20/2024) oxybutynin 5 mg tablet Take 2 tablets by mouth twice daily. (Patient not taking: Reported on 06/20/2024) nystatin ointment APPLY TO AFFECTED AREA TWICE DAILY FOR 1-2WEEKS (Patient not taking: Reported on 09/04/2022) simvastatin (ZOCOR) 40 mg tablet Take 1 tablet by mouth daily at bedtime. (Patient not taking: Reported on 09/04/2022) lisinopril-hydrochlorothiazide 20-12.5 mg per tablet Take 1 tablet by mouth once daily. (Patient not taking: Reported on 09/04/2022) PRILOSEC OTC 20 mg tablet Take 1 tablet by mouth once daily. (Patient not taking: Reported on 06/20/2024) No current facility-administered medications on file prior to visit. ALLERGIES Allergen Reactions Codeine Intolerance Lipitor [Atorvastat* Naproxen Intolerance Vicodin [Hydrocodon* Itching FAMILY HISTORY Problem Relation Age of Onset Diabetes Mother Hypertension Mother Heart Mother rhythm (syncope) Alzheimer's Disease Mother Hypertension Father Breast Cancer Sister Systemic Lupus Erythematosus Sister Diabetes Maternal Grandmother REVIEW OF SYSTEMS 10 point ROS was reviewed and negative unless indicated in the HPI Physical Exam: BP 118/72 (BP Site: Right Arm, BP Position: Sitting, BP Cuff Size: Large Adult) Pulse 70 Temp 36.4 ?C (97.5 ?F) (Temporal Artery) Resp 12 Wt 65.5 kg (144 lb 6.4 oz) SpO2 95% BMI 26.49 kg/m? Body mass index is 26.49 kg/m?. General: WNWD, NAD, using walker to ambulate Eyes: conjunctivae are pink, and moist. No exopthalmos, lag, or stare Neck: no thyromegaly or cervical LAD Lymphatic: no cervical or supraclavicular adenopathy Cardiovascular: regular rate Respiratory: unlabored breathing on room air Gastrointestinal: soft, non-tender, normal bowel sounds, no hepatosplenomegaly Musculoskeletal: normal muscle mass, no lower extremity swelling Skin: normal, no rashes present Neurologic: DTR?s normal with normal recovery phase, EOMI, no obvious tremor with outstretched hands Pyschiatric: mood and affect are normal Examination of Back: no spinal tenderness, has lordosis DATA REVIEW: Labs: 12/26/22: SODIUM 135 - 145 mmol/L 137 POTASSIUM 3.5 - 5.1 mmol/L 4.2 CHLORIDE 98 - 107 mmol/L 105 CARBON DIOXIDE 22 - 30 mmol/L 25 UREA NITROGEN 7 - 17 mg/dL 16 CREATEXT 0.52 - 1.04 mg/dL 0.62 GLUCOSE 70 - 100 mg/dL 148 High CALCIUM 8.4 - 10.4 mg/dL 8.3 Low ANION GAP 3 - 13 mmol/L 8 eGFR >60.0 mL/min/1.73m*2 >90.0 Latest Ref Rn 06/20/2024 Albumin 3.43 - 5.41 g/dL 4.01 Alpha 1 Globulin 0.18 - 0.43 g/dL 0.33 Alpha 2 Globulin 0.42 - 0.98 g/dL 0.68 Beta Globulin 0.61 - 1.17 g/dL 0.85 Gamma Globulin 0.53 - 1.51 g/dL 1.02 Interpretation (Prot Electro) No definitive M protein is identified on protein electrophoresis. No definitive M protein is identified on protein electrophoresis. M-Protein Location -- M-Protein Concentration <=0.00 g/dL 0.00 SPE Staff Review Reviewed by Yayo Babb M.D. Albumin, Urine (Prot Electro) % 46.23 Alpha 1 Globulin, Urine % 4.64 Alpha 2 Globulin, Urine % 15.66 Beta Globulin, Urine % 19.44 Gamma Globulin, Urine % 14.02 Interpretation (Urine Electro) No definitive M protein is identified on protein electrophoresis. No definitive M protein is identified on protein electrophoresis. Staff Review (Urine Electro) Reviewed by Yayo Babb M.D. Result ([facility]) No M protein is identified. No M protein is identified. Staff Review ([facility]) Reviewed by Yayo Babb M.D. Protein, Urine Random 0 - 20 mg/dL 25 (H) Protein, Total 6.3 - 8.0 g/dL 6.9 Legend: (H) High Imaging: XR LUMBAR AP/LAT/L5S1: Aug 09 2009 PROCEDURE REASON: LUMBAGO * * * * Physician Interpretation * * * * RESULT: EXAM: Three views of the lumbar spine. HISTORY: Back pain. RESULTS: There is severe demineralization of the visualized osseous structures with 90% central compression of the L2 vertebrae, mild superior endplate depression at L1 and L4. There is no spondylolisthesis. Moderate hypertrophic changes are seen at the lower lumbar facet joints. IMPRESSION: Severe demineralization of the osseous structures possibly representing osteoporosis. Severe central compression of the L2 vertebrae which has progressed since 2004. Superior endplate depression at L1 and L4. Degenerative changes of the lower lumbar CT ABD PEL W CONTRAST 03/18/2012 PROCEDURE REASON: Incisional hernia without mention of obstruction or gangrene * * * Physician Interpretation * * * RESULT: EXAMINATION: Postcontrast CT scans of the abdomen and pelvis. HISTORY: Recurrent ventral hernia. TECHNIQUE: Spiral CT scans are displayed at 3mm intervals and slice thickness. Oral and nonionic intravenous contrast material administered. Coronal reconstructions were obtained. Contrast information: Contrast1: Ultravist 300 Contrast Dose1: 145 ContrastAdminRoute1: IV Contrast2: Other ContrastDose2 : 900 ContrastAdminRoute2: Oral CT Ionizing Radiation: CT Dose-Length Product (DLP):1056 mGy*cm CT Dose Reduction Employed: Yes RESULTS: The lung bases are clear. There is a small hiatal hernia. The gallbladder, liver, spleen, pancreas, and adrenals are normal. There is no ductal dilatation. There is a prominent, 9.5 mm in short axis diameter, periportal lymph node. There is no retroperitoneal, iliac, or inguinal adenopathy. The patient has had a ventral abdominal hernia repair with mesh. Along the left edge of the mesh there is a ventral abdominal wall defect measuring approximately 1 cm in width allowing abdominal fat to pass through. There are bilateral renal cortical cysts. There is no solid mass, calculus or hydronephrosis. There is no colon wall thickening, obstruction, or inflammatory change. There are a few diverticula of the descending and sigmoid colon. There is no bladder wall thickening. There is no pelvic mass or free fluid. There is severe demineralization of the visualized osseous structures within near complete loss of central vertebral body height at L2, 30% loss of central vertebral body height at L4, and 50% loss of central vertebral body height at T11. These may represent insufficiency fractures.. IMPRESSION: Recurrent ventral hernia. Severe demineralization of the osseous structures with multiple vertebral compression fractures probably representing insufficiency fractures. MRI THORACIC SPINE WO IVCON 03/27/2018 PROCEDURE REASON: Other fracture of unspecified lumbar vertebra, initial encounter for closed frac * * * * Physician Interpretation * * * * RESULT: EXAMINATION: MRI THORACIC SPINE WO IVCON CLINICAL HISTORY: Fall one month ago. Suspected compression fracture TECHNIQUE: Routine thoracic spine MR protocol. MQ: [id number] COMPARISON: None. RESULT: Counting reference: Lumbosacral junction. For the purposes of this report, anatomic variants: None. L4-5 is considered the level of the iliac crest and assume there are 5 lumbar-type vertebrae. Alignment: Alignment is anatomic. Cord: The visualized cord is within normal limits of signal intensity and morphology. Bone marrow signal/fracture: Hyperintense signal on T1 and T2-weighted images is noted involving the T7 and T10 vertebral bodies most consistent with hemangiomas. Compression fracture is involving the T11 vertebral body. Thoracic paraspinal soft tissues: The paraspinal soft tissues are within normal limits. Canal and foramina: T9-10: Focal central disc protrusion mildly effaces the ventral thecal sac without effect on the overlying cord. T10-11: Facet hypertrophy is noted. There is mild central canal stenosis. Neural foramina are patent. From chart review: CT Chest 08/13/2022: Lungs: Bilateral perihilar consolidations with groundglass opacities. Mediastinum: The heart is mildly enlarged. Small pericardial effusion. No mediastinal, hilar or axillary adenopathy. Mild aortic arch and coronary artery calcifications. Pleura: Large left and small right pleural effusions. Bones/Soft tissues: There are diffuse degenerative changes of the spine. There are multiple sclerotic and lytic lesions throughout the appendicular and axial skeleton with several chronic pathologic rib fractures as well as several acute minimally displaced pathologic rib fractures involving the left anterolateral third, fourth, fifth, sixth, seventh, and eighth ribs. There is also a partially visualized lytic lesion involving the T12 vertebral body with a pathologic fracture. Upper abdomen: Partially visualized 4.4 cm intermediate density cyst in the right upper renal pole. ADDENDUM by Gallito Crisostomo MD on 08/13/[address]/Chest without Contrast IMPRESSION: Cardiomegaly with pulmonary edema, small pericardial effusion and large left/small right pleural effusions. Cannot rule out underlying infection or malignancy. Partially visualized 4.4 cm intermediate density cyst in the right upper renal pole is concerning for possible renal cell carcinoma. Recommend follow-up multiphase CT or MR abdomen with and without contrast for further evaluation. Findings concerning for osseous metastatic disease from an unknown primary with multiple sclerotic and lytic lesions throughout the appendicular and axial skeleton as well as several chronic pathologic rib fractures and several acute minimally displaced pathologic rib fractures involving the left anterolateral third, fourth, fifth, sixth, seventh, and eighth ribs. There is also a partially visualized lytic lesion involving the T12 vertebral body with a pathologic fracture. Recommend CT abdomen and pelvis with and without contrast for further evaluation. CT Abd/Pelvis 08/14/2022: FINDINGS: Bilateral pleural effusions left greater than right with bibasilar infiltration and/or atelectasis. Coronary artery calcification. Normal liver. Normal gallbladder and extrahepatic biliary system. Normal spleen. Normal pancreas. Normal bilateral adrenal glands. There is a 6.2 signed by 5.9 cm cyst in the upper midportion of the right kidney. 3.9 cm x 4.2 cm cyst in the lower pole of the left kidney. Normal visualized stomach. Normal small intestine. Normal colon. The appendix is visualized and appears normal. There is diffuse atherosclerotic calcification of the abdominal aorta, without a demonstrated aneurysm. Normal inferior vena cava. Normal retroperitoneum. Normal urinary bladder. There is absence of the uterus consistent with a prior hysterectomy. Increased soft tissue density in the lateral lower abdominal wall extending to the region of the left hip joint suggestive of postoperative left hip hematoma. Multiple compression fractures and heterogeneous appearance of the visualized lower thoracic and lumbar vertebrae suggestive of diffuse metastatic disease. Status post ORIF of proximal left femoral fracture. IMPRESSION: Metastatic deposits in the visualized thoracic and lumbar vertebrae with multiple compression fractures. Bilateral renal cysts. Findings suggestive of postoperative changes in the soft tissues overlying the lower left subcutaneous tissues extending to the region of the left hip joint. Bilateral pleural effusions left greater than right with underlying infiltration and/or atelectasis. DXA: Not available Appears she had a DXA scan in 2005 showing osteopenia, as per documentation. No DXA scan done at [facility] or [facility] where are PCP is located Assessment/plan: Luba Benavidez is a 68 year old female who presents for evaluation of Osteoporosis. On chart review, she was discovered to have multiple sclerotic lesions which are concerning for metastatic lesions, but work up done by Hem/onc resulted negative, including flow cytometry as well as bone marrow biopsy and she is pending another test She has a diagnosis of osteoporosis and had been on alendronate 70 mg weekly. This was discontinued when she was transition to rehabilitation in 2022, likely December. She was not very specific of when the treatment was started - X-ray of the lumbar spine from July 2009 demonstrated severe demineralization of the osseous structures. There is severe central compression of L2 which was noted to have progressed since 2004. Superior endplate depression at L1 and L4 were also noted. CT abd/pelvis in 2012 showed vertebral compression fractures MRI from 2018 showed vertebral compression fractures. More recent CT chest and abd/pelvis in 2022 show metastatic deposits from unknown primary and multiple compression fractures Her calcium intake is suboptimal. This should be optimized as well Her risk factors for osteoporosis include age, postmenopausal status, inadequate calcium intake, family history +/- malignant with bone mets I discussed checking bone labs at baseline, on fasting. I will also check DXA scan I will consider optimizing vit D and calcium based on labs on next visit. Discussed taking more calcium in diet Also based on the labs and bone turn over markers, will consider bone scan Encouraged weight bearing exercise., and to avoid falls Follow up in 4 weeks with investigations I spent a total of 70 minutes on the date of the service which included preparing to see the patient, [id number] patient care, completing clinical documentation, obtaining and/or reviewing separately obtained history, performing a medically appropriate examination, counseling and educating the patient/family/caregiver, ordering medications, tests, or procedures, independently interpreting results (not separately reported), and communicating results to the patient/family/caregiver. Jeromy Lai MD Endocrinology Associate Staff [facility] Endocrinology and Metabolism [place] [phone] Medical Decision Making: Medical Decision Making Level: 1 - N/A CNOV Observed: 08/11/2024 10:00 AM Status: COMPLETED Source: [place] Office Visit (ENWSTR) LUBA BENAVIDEZ ([id number]) 1955 F Date Time Provider Department 08/11/24 10:00 AM JEROMY LAI During your visit today, we recorded the following information about you: Temperature Pulse Respiration Blood pressure 97.5 degrees 70/minute 12/minute 118/72 Weight 65.5 kg Jeromy Lai MD 08/11/2024 5:40 PM Signed Endocrinology and Metabolism [facility] Visit Note NAME: Luba Benavidez is a 68 year old old female PCP: Rudy Boyer NP Requesting Provider: Dean Theodore MD [address] [facility] [address] My final recommendations will be communicated back to the requesting physician by way of shared medical record or letter via US mail. Chief Complaint: HPI: Luba Benavidez is a 68 year old female here to discuss bone health. PMHx significant for Type 2 DM, HLD, HTN, GERD on PPI, Osteoarthritis, Psoriatic arthropathy, Takotsuko's cardiomyopathy, Major depression She is accompanied by her today Calcium: Minimal calcium intake; does not consume milk, yogurt, or cheese. Vitamin D: was taking supplements, stopped when she went to rehab in 2022 Dietary and supplemental calcium intakes are inadequate. Prior use of antiresporptives or other medications: previously was on fosamax, does not know when it was started, but discontinued in 2022 after she went to rehab She could not remember why she was at the rehab at that time, reports she had multiple health issues one after the other and was sent to rehab multiple times Also reports her is going through some health issues currently Physical activity consists of physical therapy at the rehab, which she reports to be continuing, while chart review from Dr. Theodore's documentation shows that she was advised by her orthopedic to stop physical therapy. Patient has problem with balance. She reports she has been looking for back brace Fall prevention:using walker for ambulation, recently transitioned from a wheelchair. Prior fragility fractures: fractures both hips- latest was right hip in 2023 Height loss: lost from 5'8.5 to 5'3 Kidney stones: no Weight change: lost weight due to not eating at the rehab, reports she has been eating better since being back home on last History of corticosteroid use: short duration for respiratory issues History of malabsorption: no known history History of certain medication use: eliquis for few (5-6) years for Broken heart syndrome Current or recent tobacco use: 16 to 31 years, 1 pack per week Caffeine intake: Drinks tea daily; has weaned off Pepsi and now consumes [place] [employer] iced tea. Alcohol use: no Use of lithium or thiazides: no History of hyperparathyroidism: no Dental appointment: no recent appt, denied nay active dental issues History of estrogen use: no Menopause: had right oophorectomy and hysterectomy at age 25 due to a tumor (surgical pathology wad benign), had left ovary intact She has no history of eating disorder Cancer history: no- she has seen Dr. Theodore and all the work up for cancer was negative including bone biopsy for the multiple sclerotic lesions History of radiation exposure: no Family history of osteoporosis, calcium, or bone disorders: Osteoporosis in mother and grandmother Family history of hip fractures: no Other endocrine diseases: not known PAST MEDICAL HISTORY Diagnosis Date Anxiety state Chronic narcotic use Percocet 4 times daily 2005 until Depressive disorder, not elsewhere classified whole adult life Esophageal reflux Generalized anxiety disorder 02/12/2005 Dr. Borges Generalized osteoarthrosis, unspecified site Hip fracture (HCC) Lumbago 06/05/2004 fractured L5; follows with DR. LINDSEY Morbid obesity (HCC) since quit smoking Osteopenia Osteoporosis Type II or unspecified type diabetes mellitus without mention of complication, not stated as uncontrolled late 40's Unspecified essential hypertension late 40's Unspecified urinary incontinence late 40's urgency AND stress-induced PAST SURGICAL HISTORY Procedure Laterality Date EXC LESION TDN SHTH/JT CAPSL HAND/FNGR Right 04/16/2015 Right index trigger finger release FASCIOTOMY PALMAR OPEN PARTIAL Right 07/02/2015 Dupuytren's contracture excision HIP SURGERY HX Left 07/2022 INCISE FINGER TENDON SHEATH Right 07/02/2015 Right ring trigger finger release NEUROPLASTY AND/TRANSPOSITION ULNAR NERVE ELBOW Right 07/02/2015 Right elbow ulnar nerve decompression OOPHORECTOMY PARTIAL/TOTAL UNI/BI 02/12/1979 Oophorectomy rt PAST SURGICAL HISTORY OF - carpal tunnel and trigger finger, right; Dr. Serrano REPAIR FIRST ABDOMINAL WALL HERNIA 02/12/1997 Hernia repair, incisional RPR RECRT INCAL/VNT HERNIA REDUCIBLE 04/08/2012 with removal of old mesh TONSILLECTOMY PRIMARY/SECONDARY <AGE 12 02/12/1957 Tonsillectomy TOTAL ABDOMINAL HYSTERECT W/WO RMVL TUBE OVARY 02/12/1982 and bladder sling; BENIGN (fibroids) Current Outpatient Medications on File Prior to Visit Medication Sig busPIRone (BUSPAR) 7.5 mg tablet Take by mouth. fexofenadine (ROC) 180 mg tablet Take by mouth once daily. tolterodine ER (DETROL LA) 4 mg 24 hr capsule 4 mg. amLODIPine (NORVASC) 10 mg tablet Take 10 mg by mouth once daily. senna-docusate (SENNA-S) 8.6-50 mg per tablet Take 2 tablets by mouth daily at 6 am. multivitamin,therapeutic (THERAPEUTIC MULTIVITAMIN ORAL) Take 1 tablet by mouth once daily. donepezil (ARICEPT) 10 mg tablet Take 10 mg by mouth daily at 6 am. apixaban (ELIQUIS) 2.5 mg tab(s) Take 2.5 mg by mouth two times a day. Vitamin A AND D2 1,250-135 unit cap Take 1 tablet by mouth once daily. gabapentin (NEURONTIN) 300 mg capsule Take 300 mg by mouth three times a day. hydrOXYzine pamoate (VISTARIL) 25 mg capsule Take 25 mg by mouth three times a day as needed. aluminum AND magnesium hydroxide-simethicone (MAG-AL PLUS EXTRA STRENGTH) 400-400-40 mg/5 mL suspension Take 30 mL by mouth every 6 hours as needed. melatonin 3 mg capsules Take 1 capsule by mouth daily at bedtime. mirabegron (MYRBETRIQ) 50 mg Tb24 Take 50 mg by mouth daily at [address] (PROTONIX) 40 mg tablet Take 40 mg by mouth once daily. potassium chloride ER (KLOR-CON) 20 mEq tablet Take 20 mEq by mouth two times a day. atorvastatin (LIPITOR) 20 mg tablet Take 20 mg by mouth once daily. bisacodyl (DULCOLAX) 10 mg supp 10 mg by RECTAL route once daily as needed for constipation. mineral oil (FLEET MINERAL OIL ENEMA) enema 133 mL by RECTAL route as needed for constipation. traMADol (ULTRAM) 50 mg tablet Take 50 mg by mouth every 8 hours as needed for pain. lisinopril (ZESTRIL) 20 mg tablet Take 20 mg by mouth once daily. magnesium hydroxide (MILK OF MAGNESIA) 400 mg/5 mL suspension Take 30 mL by mouth once daily as needed for constipation. carvedilol (COREG) 3.125 mg tablet Take 3.125 mg by mouth twice daily with meals. acetaminophen (TYLENOL) 325 mg tablet Take 500 mg by mouth every 4 hours as needed. 2 tablets FLUoxetine HCl (PROZAC) 40 mg capsule Take 40 mg by mouth once daily. glipiZIDE 10 mg tablet Take 1 tablet by mouth daily before breakfast. Senna 8.6 mg tab Take 8.6 mg by mouth two times a day as needed for constipation. (Patient not taking: Reported on 08/11/2024) cetirizine (ZYRTEC) 10 mg tablet Take 10 mg by mouth once daily. (Patient not taking: Reported on 08/11/2024) OTC PRODUCT Apply to affected area once daily. Lidocaine External Patch Apply to back topically in the morning for pain. Remove at bedtime. (Patient not taking: Reported on 08/11/2024) iv contrast (will be provided with radiology test) CT ABD/PEL -Inject, intravenously, once for 1 dose.No IV access, insert saline lock prior to the beginning of sedation, infusion, injection of imaging exam. Discontinue saline lock post exam. If Pt. has a central line or IVAD, may access for administration according to line specific nursing protocol. Once exam is complete flush line and de-access according to line specific nursing protocol in the CT contrast administration guidelines link. enteric contrast (will be provided with radiology test) For CT ABD/PEL W IVCON Routine order Administer, As Directed One Time Only, via Oral, Rectal, both Oral and Rectal, Enteric Tube, Stoma or Indwelling Catheter, Enteric Contrast as designated per enteric contrast guidelines Multivitamin capsule Take 1 capsule by mouth once daily. (Patient not taking: Reported on 06/20/2024) oxyCODONE-acetaminophen (PERCOCET) 5-325 mg tablet Take 1 tablet by mouth twice daily as needed for Pain for up to 30 days. oxyCODONE-acetaminophen (PERCOCET) 5-325 mg tablet Take 1 tablet by mouth twice daily as needed for Pain for up to 30 days. oxyCODONE-acetaminophen (PERCOCET) 5-325 mg tablet Take 1 tablet by mouth twice daily as needed for Pain for up to 30 days. tiZANidine (ZANAFLEX) 4 mg tablet Take 1 tablet by mouth twice daily as needed. VITAMIN D 50,000 unit capsule Take 1 capsule by mouth once each week. (Patient not taking: Reported on 06/20/2024) PROCHLORPERAZINE MALEATE (COMPAZINE ORAL) Take 1 tablet by mouth. (Patient not taking: Reported on 09/04/2022) MECLIZINE HCL (MECLIZINE ORAL) Take 1 tablet by mouth. (Patient not taking: Reported on 09/04/2022) TENS Units logan 1 Device as needed. (Patient not taking: Reported on 06/20/2024) oxybutynin 5 mg tablet Take 2 tablets by mouth twice daily. (Patient not taking: Reported on 06/20/2024) nystatin ointment APPLY TO AFFECTED AREA TWICE DAILY FOR 1-2WEEKS (Patient not taking: Reported on 09/04/2022) simvastatin (ZOCOR) 40 mg tablet Take 1 tablet by mouth daily at bedtime. (Patient not taking: Reported on 09/04/2022) lisinopril-hydrochlorothiazide 20-12.5 mg per tablet Take 1 tablet by mouth once daily. (Patient not taking: Reported on 09/04/2022) PRILOSEC OTC 20 mg tablet Take 1 tablet by mouth once daily. (Patient not taking: Reported on 06/20/2024) No current facility-administered medications on file prior to visit. ALLERGIES Allergen Reactions Codeine Intolerance Lipitor [Atorvastat* Naproxen Intolerance Vicodin [Hydrocodon* Itching FAMILY HISTORY Problem Relation Age of Onset Diabetes Mother Hypertension Mother Heart Mother rhythm (syncope) Alzheimer's Disease Mother Hypertension Father Breast Cancer Sister Systemic Lupus Erythematosus Sister Diabetes Maternal Grandmother REVIEW OF SYSTEMS 10 point ROS was reviewed and negative unless indicated in the HPI Physical Exam: BP 118/72 (BP Site: Right Arm, BP Position: Sitting, BP Cuff Size: Large Adult) Pulse 70 Temp 36.4 ?C (97.5 ?F) (Temporal Artery) Resp 12 Wt 65.5 kg (144 lb 6.4 oz) SpO2 95% BMI 26.49 kg/m? Body mass index is 26.49 kg/m?. General: WNWD, NAD, using walker to ambulate Eyes: conjunctivae are pink, and moist. No exopthalmos, lag, or stare Neck: no thyromegaly or cervical LAD Lymphatic: no cervical or supraclavicular adenopathy Cardiovascular: regular rate Respiratory: unlabored breathing on room air Gastrointestinal: soft, non-tender, normal bowel sounds, no hepatosplenomegaly Musculoskeletal: normal muscle mass, no lower extremity swelling Skin: normal, no rashes present Neurologic: DTR?s normal with normal recovery phase, EOMI, no obvious tremor with outstretched hands Pyschiatric: mood and affect are normal Examination of Back: no spinal tenderness, has lordosis DATA REVIEW: Labs: 12/26/22: SODIUM 135 - 145 mmol/L 137 POTASSIUM 3.5 - 5.1 mmol/L 4.2 CHLORIDE 98 - 107 mmol/L 105 CARBON DIOXIDE 22 - 30 mmol/L 25 UREA NITROGEN 7 - 17 mg/dL 16 CREATEXT 0.52 - 1.04 mg/dL 0.62 GLUCOSE 70 - 100 mg/dL 148 High CALCIUM 8.4 - 10.4 mg/dL 8.3 Low ANION GAP 3 - 13 mmol/L 8 eGFR >60.0 mL/min/1.73m*2 >90.0 Latest Ref [facility] 06/20/2024 Albumin 3.43 - 5.41 g/dL 4.01 Alpha 1 Globulin 0.18 - 0.43 g/dL 0.33 Alpha 2 Globulin 0.42 - 0.98 g/dL 0.68 Beta Globulin 0.61 - 1.17 g/dL 0.85 Gamma Globulin 0.53 - 1.51 g/dL 1.02 Interpretation (Prot Electro) No definitive M protein is identified on protein electrophoresis. No definitive M protein is identified on protein electrophoresis. M-Protein Location -- M-Protein Concentration <=0.00 g/dL 0.00 SPE Staff Review Reviewed by Yayo Babb M.D. Albumin, Urine (Prot Electro) % 46.23 Alpha 1 Globulin, Urine % 4.64 Alpha 2 Globulin, Urine % 15.66 Beta Globulin, Urine % 19.44 Gamma Globulin, Urine % 14.02 Interpretation (Urine Electro) No definitive M protein is identified on protein electrophoresis. No definitive M protein is identified on protein electrophoresis. Staff Review (Urine Electro) Reviewed by Yayo Babb M.D. Result ([facility]) No M protein is identified. No M protein is identified. Staff Review ([facility]) Reviewed by Yayo Babb M.D. Protein, Urine Random 0 - 20 mg/dL 25 (H) Protein, Total 6.3 - 8.0 g/dL 6.9 Legend: (H) High Imaging: XR LUMBAR AP/LAT/L5S1: Aug 09 2009 PROCEDURE REASON: LUMBAGO * * * * Physician Interpretation * * * * RESULT: EXAM: Three views of the lumbar spine. HISTORY: Back pain. RESULTS: There is severe demineralization of the visualized osseous structures with 90% central compression of the L2 vertebrae, mild superior endplate depression at L1 and L4. There is no spondylolisthesis. Moderate hypertrophic changes are seen at the lower lumbar facet joints. IMPRESSION: Severe demineralization of the osseous structures possibly representing osteoporosis. Severe central compression of the L2 vertebrae which has progressed since 2004. Superior endplate depression at L1 and L4. Degenerative changes of the lower lumbar CT ABD PEL W CONTRAST 03/18/2012 PROCEDURE REASON: Incisional hernia without mention of obstruction or gangrene * * * Physician Interpretation * * * RESULT: EXAMINATION: Postcontrast CT scans of the abdomen and pelvis. HISTORY: Recurrent ventral hernia. TECHNIQUE: Spiral CT scans are displayed at 3mm intervals and slice thickness. Oral and nonionic intravenous contrast material administered. Coronal reconstructions were obtained. Contrast information: Contrast1: Ultravist 300 Contrast Dose1: 145 ContrastAdminRoute1: IV Contrast2: Other ContrastDose2 : 900 ContrastAdminRoute2: Oral CT Ionizing Radiation: CT Dose-Length Product (DLP):1056 mGy*cm CT Dose Reduction Employed: Yes RESULTS: The lung bases are clear. There is a small hiatal hernia. The gallbladder, liver, spleen, pancreas, and adrenals are normal. There is no ductal dilatation. There is a prominent, 9.5 mm in short axis diameter, periportal lymph node. There is no retroperitoneal, iliac, or inguinal adenopathy. The patient has had a ventral abdominal hernia repair with mesh. Along the left edge of the mesh there is a ventral abdominal wall defect measuring approximately 1 cm in width allowing abdominal fat to pass through. There are bilateral renal cortical cysts. There is no solid mass, calculus or hydronephrosis. There is no colon wall thickening, obstruction, or inflammatory change. There are a few diverticula of the descending and sigmoid colon. There is no bladder wall thickening. There is no pelvic mass or free fluid. There is severe demineralization of the visualized osseous structures within near complete loss of central vertebral body height at L2, 30% loss of central vertebral body height at L4, and 50% loss of central vertebral body height at T11. These may represent insufficiency fractures.. IMPRESSION: Recurrent ventral hernia. Severe demineralization of the osseous structures with multiple vertebral compression fractures probably representing insufficiency fractures. MRI THORACIC SPINE WO IVCON 03/27/2018 PROCEDURE REASON: Other fracture of unspecified lumbar vertebra, initial encounter for closed frac * * * * Physician Interpretation * * * * RESULT: EXAMINATION: MRI THORACIC SPINE WO IVCON CLINICAL HISTORY: Fall one month ago. Suspected compression fracture TECHNIQUE: Routine thoracic spine MR protocol. MQ: [id number] COMPARISON: None. RESULT: Counting reference: Lumbosacral junction. For the purposes of this report, anatomic variants: None. L4-5 is considered the level of the iliac crest and assume there are 5 lumbar-type vertebrae. Alignment: Alignment is anatomic. Cord: The visualized cord is within normal limits of signal intensity and morphology. Bone marrow signal/fracture: Hyperintense signal on T1 and T2-weighted images is noted involving the T7 and T10 vertebral bodies most consistent with hemangiomas. Compression fracture is involving the T11 vertebral body. Thoracic paraspinal soft tissues: The paraspinal soft tissues are within normal limits. Canal and foramina: T9-10: Focal central disc protrusion mildly effaces the ventral thecal sac without effect on the overlying cord. T10-11: Facet hypertrophy is noted. There is mild central canal stenosis. Neural foramina are patent. From chart review: CT Chest 08/13/2022: Lungs: Bilateral perihilar consolidations with groundglass opacities. Mediastinum: The heart is mildly enlarged. Small pericardial effusion. No mediastinal, hilar or axillary adenopathy. Mild aortic arch and coronary artery calcifications. Pleura: Large left and small right pleural effusions. Bones/Soft tissues: There are diffuse degenerative changes of the spine. There are multiple sclerotic and lytic lesions throughout the appendicular and axial skeleton with several chronic pathologic rib fractures as well as several acute minimally displaced pathologic rib fractures involving the left anterolateral third, fourth, fifth, sixth, seventh, and eighth ribs. There is also a partially visualized lytic lesion involving the T12 vertebral body with a pathologic fracture. Upper abdomen: Partially visualized 4.4 cm intermediate density cyst in the right upper renal pole. ADDENDUM by Gallito Crisostomo MD on 08/13/[address]/Chest without Contrast IMPRESSION: Cardiomegaly with pulmonary edema, small pericardial effusion and large left/small right pleural effusions. Cannot rule out underlying infection or malignancy. Partially visualized 4.4 cm intermediate density cyst in the right upper renal pole is concerning for possible renal cell carcinoma. Recommend follow-up multiphase CT or MR abdomen with and without contrast for further evaluation. Findings concerning for osseous metastatic disease from an unknown primary with multiple sclerotic and lytic lesions throughout the appendicular and axial skeleton as well as several chronic pathologic rib fractures and several acute minimally displaced pathologic rib fractures involving the left anterolateral third, fourth, fifth, sixth, seventh, and eighth ribs. There is also a partially visualized lytic lesion involving the T12 vertebral body with a pathologic fracture. Recommend CT abdomen and pelvis with and without contrast for further evaluation. CT Abd/Pelvis 08/14/2022: FINDINGS: Bilateral pleural effusions left greater than right with bibasilar infiltration and/or atelectasis. Coronary artery calcification. Normal liver. Normal gallbladder and extrahepatic biliary system. Normal spleen. Normal pancreas. Normal bilateral adrenal glands. There is a 6.2 signed by 5.9 cm cyst in the upper midportion of the right kidney. 3.9 cm x 4.2 cm cyst in the lower pole of the left kidney. Normal visualized stomach. Normal small intestine. Normal colon. The appendix is visualized and appears normal. There is diffuse atherosclerotic calcification of the abdominal aorta, without a demonstrated aneurysm. Normal inferior vena cava. Normal retroperitoneum. Normal urinary bladder. There is absence of the uterus consistent with a prior hysterectomy. Increased soft tissue density in the lateral lower abdominal wall extending to the region of the left hip joint suggestive of postoperative left hip hematoma. Multiple compression fractures and heterogeneous appearance of the visualized lower thoracic and lumbar vertebrae suggestive of diffuse metastatic disease. Status post ORIF of proximal left femoral fracture. IMPRESSION: Metastatic deposits in the visualized thoracic and lumbar vertebrae with multiple compression fractures. Bilateral renal cysts. Findings suggestive of postoperative changes in the soft tissues overlying the lower left subcutaneous tissues extending to the region of the left hip joint. Bilateral pleural effusions left greater than right with underlying infiltration and/or atelectasis. DXA: Not available Appears she had a DXA scan in 2005 showing osteopenia, as per documentation. No DXA scan done at [facility] or [facility] where are PCP is located Assessment/plan: Luba Benavidez is a 68 year old female who presents for evaluation of Osteoporosis. On chart review, she was discovered to have multiple sclerotic lesions which are concerning for metastatic lesions, but work up done by Hem/onc resulted negative, including flow cytometry as well as bone marrow biopsy and she is pending another test She has a diagnosis of osteoporosis and had been on alendronate 70 mg weekly. This was discontinued when she was transition to rehabilitation in 2022, likely December. She was not very specific of when the treatment was started - X-ray of the lumbar spine from July 2009 demonstrated severe demineralization of the osseous structures. There is severe central compression of L2 which was noted to have progressed since 2004. Superior endplate depression at L1 and L4 were also noted. CT abd/pelvis in 2012 showed vertebral compression fractures MRI from 2018 showed vertebral compression fractures. More recent CT chest and abd/pelvis in 2022 show metastatic deposits from unknown primary and multiple compression fractures Her calcium intake is suboptimal. This should be optimized as well Her risk factors for osteoporosis include age, postmenopausal status, inadequate calcium intake, family history +/- malignant with bone mets I discussed checking bone labs at baseline, on fasting. I will also check DXA scan I will consider optimizing vit D and calcium based on labs on next visit. Discussed taking more calcium in diet Also based on the labs and bone turn over markers, will consider bone scan Encouraged weight bearing exercise., and to avoid falls Follow up in 4 weeks with investigations I spent a total of 70 minutes on the date of the service which included preparing to see the patient, [id number] patient care, completing clinical documentation, obtaining and/or reviewing separately obtained history, performing a medically appropriate examination, counseling and educating the patient/family/caregiver, ordering medications, tests, or procedures, independently interpreting results (not separately reported), and communicating results to the patient/family/caregiver. Jeromy Lai MD Endocrinology Associate Staff [facility] Endocrinology and Metabolism [place] [phone] Medical Decision Making: Medical Decision Making Level: 1 - N/A Jeromy Lai MD 08/11/2024 10:49 AM Addendum Please do labs after overnight fast at 8 am to 10 am- hold any biotin supplements for atleast 3 days before lab draw Schedule for bone density scan BONE MINERAL DENSITY PATIENT INSTRUCTIONS Bone mineral density testing measures the amount of calcium in certain parts of your bones. This information determines how strong your bones are. The test is used to detect osteoporosis, a disease in which the bone's mineral content and density are low, increasing a person's risk of fractures. The lumbar spine (lower back) and the hip are the skeletal sites usually examined. For the test, remember that: 1. You cannot take this test if you are . 2. Eat a normal diet on the day of the test. 3. Take your medications as you normally would. 4. DO NOT take calcium supplements (such as Tums) for 24 hours before the test. 5. On the day of the test, leave valuables (jewelry or credit cards) at home. 6. The test should be performed prior to oral, rectal or IV contrast studies, or at least 7 days after any of these studies. For the test, you may be asked to wear a hospital gown. You will lie on your back, on a padded table, in a comfortable position. Generally, you can resume your usual activities immediately. Referring Provider: DEAN THEODORE [[id number]] Allergies As of Date: 08/11/2024 Noted Allergy Reaction CODEINE 04/30/2006 5 - Intolerance LIPITOR (ATORVASTATIN) 02/28/2007 NAPROXEN 02/26/2007 5 - Intolerance VICODIN (HYDROCODONE-ACETAMINOPHE*03/05/2009 9 - Itching Date Reviewed: 08/11/2024 Reviewed by: Jen Torres MA - Fully Assessed Reason for Visit: Osteoporosis [773] Primary Visit Diagnosis:Age-related osteoporosis without current pathological fracture [M81.0] Other Visit Diagnosis:Osteoporosis without current pathological fracture, unspecified osteoporosis type [M81.0] Order(s):CONSULT TO ENDOCRINOLOGY [9007] Order #: [id number]: 1 VITAMIN D 25 HYDROXY [SQVITD] Order #: [id number] FUTURE MAGNESIUM [SQMG1] Order #: [id number] FUTURE PHOSPHORUS INORGANIC [SQPHOS] Order #: [id number] FUTURE PTH INTACT [SQPTHI] Order #: [id number] FUTURE CALCIUM, IONIZED [SQICA] Order #: [id number] FUTURE COMPREHENSIVE METABOLIC PANEL [SQCMP] Order #: [id number] FUTURE ALK PHOS BONE SPEC [SQAPBONE] Order #: [id number] FUTURE C TELOPEPTIDE, BETA [SQCTELO] Order #: [id number] FUTURE DXA-AXIAL SKELETON WITH VFA [5850742] Order #: [id number] FUTURE BD DXA TRABECULAR BONE SCORE (TBS) [5420519] Order #: [id number] FUTURE Prescriptions as of 08/11/2024 - busPIRone (BUSPAR) 7.5 mg tablet Take by mouth. - fexofenadine (ROC) 180 mg tablet Take by mouth once daily. - tolterodine ER (DETROL LA) 4 mg 24 hr capsule 4 mg. - amLODIPine (NORVASC) 10 mg tablet Take 10 mg by mouth once daily. - Senna 8.6 mg tab Take 8.6 mg by mouth two times a day as needed for constipation. - senna-docusate (SENNA-S) 8.6-50 mg per tablet Take 2 tablets by mouth daily at 6 am. - multivitamin,therapeutic (THERAPEUTIC MULTIVITAMIN ORAL) Take 1 tablet by mouth once daily. - cetirizine (ZYRTEC) 10 mg tablet Take 10 mg by mouth once daily. - donepezil (ARICEPT) 10 mg tablet Take 10 mg by mouth daily at 6 am. - apixaban (ELIQUIS) 2.5 mg tab(s) Take 2.5 mg by mouth two times a day. - Vitamin A AND D2 1,250-135 unit cap Take 1 tablet by mouth once daily. - gabapentin (NEURONTIN) 300 mg capsule Take 300 mg by mouth three times a day. - hydrOXYzine pamoate (VISTARIL) 25 mg capsule Take 25 mg by mouth three times a day as needed. - OTC PRODUCT Apply to affected area once daily. Lidocaine External Patch Apply to back topically in the morning for pain. Remove at bedtime. - aluminum AND magnesium hydroxide-simethicone (MAG-AL PLUS EXTRA STRENGTH) 400-400-40 mg/5 mL suspension Take 30 mL by mouth every 6 hours as needed. - melatonin 3 mg capsules Take 1 capsule by mouth daily at bedtime. - mirabegron (MYRBETRIQ) 50 mg Tb24 Take 50 mg by mouth daily at 6 am. - pantoprazole DR (PROTONIX) 40 mg tablet Take 40 mg by mouth once daily. - potassium chloride ER (KLOR-CON) 20 mEq tablet Take 20 mEq by mouth two times a day. - iv contrast (will be provided with radiology test) CT ABD/PEL -Inject, intravenously, once for 1 dose.No IV access, insert saline lock prior to the beginning of sedation, infusion, injection of imaging exam. Discontinue saline lock post exam. If Pt. has a central line or IVAD, may access for administration according to line specific nursing protocol. Once exam is complete flush line and de-access according to line specific nursing protocol in the CT contrast administration guidelines link. - enteric contrast (will be provided with radiology test) For CT ABD/PEL W IVCON Routine order Administer, As Directed One Time Only, via Oral, Rectal, both Oral and Rectal, Enteric Tube, Stoma or Indwelling Catheter, Enteric Contrast as designated per enteric contrast guidelines - atorvastatin (LIPITOR) 20 mg tablet Take 20 mg by mouth once daily. - bisacodyl (DULCOLAX) 10 mg supp 10 mg by RECTAL route once daily as needed for constipation. - mineral oil (FLEET MINERAL OIL ENEMA) enema 133 mL by RECTAL route as needed for constipation. - traMADol (ULTRAM) 50 mg tablet Take 50 mg by mouth every 8 hours as needed for pain. - lisinopril (ZESTRIL) 20 mg tablet Take 20 mg by mouth once daily. - magnesium hydroxide (MILK OF MAGNESIA) 400 mg/5 mL suspension Take 30 mL by mouth once daily as needed for constipation. - Multivitamin capsule Take 1 capsule by mouth once daily. - oxyCODONE-acetaminophen (PERCOCET) 5-325 mg tablet Take 1 tablet by mouth twice daily as needed for Pain for up to 30 days. - oxyCODONE-acetaminophen (PERCOCET) 5-325 mg tablet Take 1 tablet by mouth twice daily as needed for Pain for up to 30 days. - oxyCODONE-acetaminophen (PERCOCET) 5-325 mg tablet Take 1 tablet by mouth twice daily as needed for Pain for up to 30 days. - tiZANidine (ZANAFLEX) 4 mg tablet Take 1 tablet by mouth twice daily as needed. - VITAMIN D 50,000 unit capsule Take 1 capsule by mouth once each week. - carvedilol (COREG) 3.125 mg tablet Take 3.125 mg by mouth twice daily with meals. - PROCHLORPERAZINE MALEATE (COMPAZINE ORAL) Take 1 tablet by mouth. - MECLIZINE HCL (MECLIZINE ORAL) Take 1 tablet by mouth. - acetaminophen (TYLENOL) 325 mg tablet Take 500 mg by mouth every 4 hours as needed. 2 tablets - TENS Units logan 1 Device as needed. - FLUoxetine HCl (PROZAC) 40 mg capsule Take 40 mg by mouth once daily. - oxybutynin 5 mg tablet Take 2 tablets by mouth twice daily. - nystatin ointment APPLY TO AFFECTED AREA TWICE DAILY FOR 1-2WEEKS - glipiZIDE 10 mg tablet Take 1 tablet by mouth daily before breakfast. - simvastatin (ZOCOR) 40 mg tablet Take 1 tablet by mouth daily at bedtime. - lisinopril-hydrochlorothiazide 20-12.5 mg per tablet Take 1 tablet by mouth once daily. - PRILOSEC OTC 20 mg tablet Take 1 tablet by mouth once daily. Problem List As Of Date 08/11/2024 Noted Resolved Eating disorder, unspecified [F50.9] 06/25/2006 03/07/2018 Generalized anxiety disorder [F41.1] 06/25/2006 Major depressive disorder, recurrent episode, m*06/25/2006 Esophageal reflux [K21.9] 06/25/2006 Generalized osteoarthrosis, unspecified site [M*06/25/2006 Mitral valve disorders [I05.9] 06/25/2006 Lumbago [M54.50] 06/05/2004 Unspecified urinary incontinence [R32] Essential hypertension [I10] Depressive disorder, not elsewhere classified [* Osteopenia [M89.9, M94.9] Routine general medical examination at a health*07/27/2008 08/03/2012 Class: Chronic Routine gynecological examination [Z01.419] 07/27/2008 08/03/2012 Class: Chronic Mixed hyperlipidemia [E78.2] 07/27/2008 Type 2 diabetes mellitus without complication (*10/07/2008 Leukocytosis [D72.829] 06/07/2009 Right shoulder pain [M25.511] 11/18/2010 Recurrent incisional hernia with incarceration *03/21/2012 Trigger index finger of right hand [M65.321] 02/17/2015 Lesion of left ulnar nerve [G56.22] 02/17/2015 Bipolar disorder in partial remission (HCC) [F3*02/25/2015 Osteopenia [M85.80] 02/25/2015 Dupuytren's disease of palm [M72.0] 06/10/2015 Trigger ring finger of left hand [M65.342] 06/10/2015 Radiculopathy, lumbar region [M54.16] 11/01/2015 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*11/01/2015 DDD (degenerative disc disease), lumbar [M51.36*11/01/2015 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] 11/01/2015 Fracture of multiple ribs of right side [S22.41*01/21/2016 Compression of lumbar vertebra (HCC) [S32.000A] 03/17/2016 Spondylosis of lumbar region without myelopathy*10/27/2016 Psoriatic arthropathy (HCC) [L40.50] 08/06/2017 Other fracture of unspecified lumbar vertebra, *02/27/2018 Takotsubo cardiomyopathy [I51.81] 03/07/2018 Closed compression fracture of fifth lumbar melquiades*08/14/2018 Other instructions from your clinician: Please do labs after overnight fast at 8 am to 10 am- hold any biotin supplements for atleast 3 days before lab draw Schedule for bone density scan BONE MINERAL DENSITY PATIENT INSTRUCTIONS Bone mineral density testing measures the amount of calcium in certain parts of your bones. This information determines how strong your bones are. The test is used to detect osteoporosis, a disease in which the bone's mineral content and density are low, increasing a person's risk of fractures. The lumbar spine (lower back) and the hip are the skeletal sites usually examined. For the test, remember that: 1. You cannot take this test if you are . 2. Eat a normal diet on the day of the test. 3. Take your medications as you normally would. 4. DO NOT take calcium supplements (such as Tums) for 24 hours before the test. 5. On the day of the test, leave valuables (jewelry or credit cards) at home. 6. The test should be performed prior to oral, rectal or IV contrast studies, or at least 7 days after any of these studies. For the test, you may be asked to wear a hospital gown. You will lie on your back, on a padded table, in a comfortable position. Generally, you can resume your usual activities immediately. Disposition: Return in about 4 weeks (around 09/08/2024). Follow-up and Disposition History for Encounter Date Provider Department Center 08/11/2024 [id number], SNIGDHA*VIVIAN Lopes [facility] Encounter Status:Closed by JEROMY LAI on 08/11/24 URINE PROTEIN ELECTROPHORESI S RANDOM (P) Collected: 06/20/2024 1:30 PM Status: F Source: [place] Order Comment: Specimen Type : URINE SPECIMEN Ordering Facility: [facility] Address: [address] [id number] TYPE CODE TESTS RESULT OUT OF RANGE REFERENCE UNITS LAB 81975-5(LOINC) Albumin MFr Ur Elph 46.23 % LAB 64341-8(LOINC) Alpha1 Glob MFr Ur Elph 4.64 % LAB 88628-7(LOINC) Alpha2 Glob MFr Ur Elph 15.66 % LAB 38491-8(LOINC) B-Globulin MFr Ur Elph 19.44 % LAB 11667-9(LOINC) Gamma glob MFr Ur Elph 14.02 % LAB 14734-5(LOINC) Prot Pattern Ur Elph-Imp No definitive M protein is identified on protein electrophoresi s. No definitive M protein is identified on protein electrophores is. LAB UPESTF STAFF REVIEW (URINE ELECTRO) Reviewed by Yayo Babb M.D. Performed By: #### [id number] # ### [facility] CLIA [id number] [address] [place] [address] [place] MONOCLONAL PROT UR W/INTERP Collected: 06/20/2024 1:30 PM Status: F Source: [place] Order Comment: Specimen Type : URINE SPECIMEN Ordering Facility: [facility] Address: [address] [place] [address] TYPE CODE TESTS RESULT OUT OF RANGE REFERENCE UNITS LAB UMPA UMPA RESULT No M protein is identified. No M protein is identified. LAB UMPSTF STAFF REVIEW (UMPA) Reviewed by Yayo Babb M.D. Performed By: #### URMPA ### # [facility] CLIA [id number] [address] [place] [address] STATES [facility] PROT UR-MCNC Collected: 06/20/2024 1:30 PM Status: F Source: [place] Order Comment: Specimen Type : URINE SPECIMEN Ordering Facility: [facility] Address: [address] [place] [address] TYPE CODE TESTS RESULT OUT OF RANGE REFERENCE UNITS LAB 2888-6(LOINC) Prot Ur-mCnc 25 High 0-20 mg/dL Performed By: #### 2888-6 ## ## [facility] CLIA [id number] [address] [place] [address] [place] PROT SERPL-MCNC Collected: 06/20/2024 1:28 PM Status : F Source: [place] Order Comment: Specimen Type : BLOOD SPECIMEN Ordering Facility: [facility] Address: [address] [place] [address] TYPE CODE TESTS RESULT OUT OF RANGE REFERENCE UNITS LAB 2885-2(LOINC) Prot SerPl-mCnc 6.9 6.3-8.0 g/dL Performed By: #### 2885-2 ## ## [facility] CLIA [id number] [address] [place] [address] [place] FLOW CYTOMETRY FOR LEUKEMIA/LYMPHOMA (FCLL) PERFORMABLE Collected: 06/20/2024 1:28 PM Status: F Source: [facility] Comment: Specimen Type : BLOOD SPECIMEN Ordering Facility: [facility] Address: [address] [place] [address] TYPE CODE TESTS RESULT OUT OF RANGE REFERENCE UNITS LAB [id number] FLOW CYTOMETRY ORDER STATUS Results will be reported under F case ID when completed Performed By: #### FCLLP ### # [facility] CLIA [id number] [address] [place] [address] [place] IMMUNODEFICIENCY PNL BLD FC Collected: 06/20/2024 1:28 PM Status: F Source: [facility] Comment: Specimen Type : BLOOD SPECIMEN Ordering Facility: [facility] Address: [address] [place] [address] TYPE CODE TESTS RESULT OUT OF RANGE REFERENCE UNITS LAB 8124-0(LOINC) CD3 Cells NFr Bld 79 60-89 % LAB 8122-4(LOINC) CD3 Cells # Bld 8945 435-7098 cells/uL LAB 8123-2(LOINC) CD3+CD4+ Cells NFr Bld 56 34-61 % LAB 05436-9(LOINC) CD3+CD4+ Cells # Bld 3153 602-0963 cells/uL LAB 8101-8(LOINC) CD3+CD8+ Cells NFr Bld 22 10-41 % LAB 82182-7(LOINC) CD3+CD8+ Cells # Bld 522 175-958 cells/uL LAB 48281-5(LOINC) CD3-CD19+ Cells NFr Bld 11 5-22 % LAB 25402-0(LOINC) CD3-CD19+ Cells # Bld 268 75-660 cells/uL LAB 8112-5(LOINC) CD3-CD16+CD 56+ Cells NFr Bld 10 5-25 % LAB 9728-7(LOINC) CD3-CD16+CD 56+ Cells # Bld 232 102-565 cells/uL LAB 67665-6(LOINC) CD3+CD4+ Cells/CD3+C D8+ Cells Bld 2.49 1.10-3.25 Performed By: #### 99074-8 # ### [facility] IA [id number] [address] [place] [address] [place] IMMUNOFIXATION SCREEN, SERUM Collected: 06/20/2024 1:28 PM Status: F Source: [facility] Comment: Specimen Type : BLOOD SPECIMEN Ordering Facility: [facility] Address: [address] [place] [address] TYPE CODE TESTS RESULT OUT OF RANGE REFERENCE UNITS LAB MPAR MPA RESULT No M protein is identified. No M protein is identified. LAB MPASTF STAFF REVIEW (MPA) Reviewed by Yayo Babb M.D. Performed By: #### IFESC ### # [facility] IA [id number] [address] [place] [address] [place] IMMUNOGLOBULINS,IGG,IGA,IGM Collected: 06/20/2024 1:28 PM Status: F Source: [facility] Comment: Specimen Type : BLOOD SPECIMEN Ordering Facility: [facility] Address: [address] [place] [address] TYPE CODE TESTS RESULT OUT OF RANGE REFERENCE UNITS LAB 2465-3(LOINC ) IgG SerPl-mCn c 1319 990-4095 mg/dL LAB 2458-8(LOINC ) IgA SerPl-mCn c 302 70-400 mg/dL LAB 2472-9(LOINC ) IgM SerPl-mCn c 89 40-230 mg/dL Performed By: #### SERIMM ## ## [facility] IA [id number] [address] [place] [address] [place] PROTEIN ELECTROPHORESIS SERUM (P) Colle cted: 06/20/2024 1:28 PM Status: F Source: [facility] Comment: Specimen Type : BLOOD SPECIMEN Ordering Facility: [facility] Address: [address] [place] [address] TYPE CODE TESTS RESULT OUT OF RANGE REFERENCE UNITS LAB 2862-1(LOINC) Albumin SerPl Elph-mCnc 4.01 3.43-5.41 g/dL LAB 2865-4(LOINC) Alpha1 Glob SerPl Elph-mCnc 0.33 0.18-0.43 g/dL LAB 2868-8(LOINC) Alpha2 Glob SerPl Elph-mCnc 0.68 0.42-0.98 g/dL LAB 2871-2(LOINC) B-Globulin SerPl Elph-mCnc 0.85 0.61-1.17 g/dL LAB 2874-6(LOINC) Gamma glob SerPl Elph-mCnc 1.02 0.53-1.51 g/dL LAB 25394-8(LOINC) Prot Pattern SerPl Elph-Imp No definitive M protein is identified on protein electrophores is. No definitive M protein is identified on protein electrophores is. LAB LOC M-PROTEIN LOCATION Result Comment: Not Applicab le. LAB 45407-5(LOINC) M Protein SerPl Elph-mCnc 0.00 <=0.00 g/dL LAB SPESTF SPE STAFF REVIEW Reviewed by Yayo Babb M.D. Performed By: #### [id number] # ### [facility] CLIA [id number] [address] [place] [address] [place] KAPPA/LAND,FREE,SER Collected: 06/21/19 25 1:28 PM Status: F Source: [place] Order Comment: Specimen Type : BLOOD SPECIMEN Ordering Facility: [facility] Address: [address] [place] [address] TYPE CODE TESTS RESULT OUT OF RANGE REFERENCE UNITS LAB 99620-5(LOINC) Villard LC Free Ser-mCnc 30.2 High 3.3-19.4 mg/L Result Comment: Rarely, incr eased serum free light chains levels may not be detected or accurately quantified due to prozone phenomenon or in high viscosity samples using this immunoturbidimetric assay. Correlation with other laboratory results and clinical findings is recommended. The Villard Free Light Chain was performed using the Binding Site Optilite immunoturbidimetric method. Result obtained with different assay methods or kits cannot be used interchangeably. LAB 78275-6(LOINC) Lambda LC Free SerPl-mCnc 23.7 5.7-26.3 mg/L Result Comment: Rarely, incr eased serum free light chains levels may not be detected or accurately quantified due to prozone phenomenon or in high viscosity samples using this immunoturbidimetric assay. Correlation with other laboratory results and clinical findings is recommended. The Lambda Free Light Chain was performed using the Binding Site Optilite immunoturbidimetric method. Result obtained with different assay methods or kits cannot be used interchangeably. LAB 13804-0(LOINC) Villard LC/Lambda Ser 1.27 0.26-1.65 Performed By: #### KLFRS ### # [facility] CLIA [id number] [address] [place] [address] [place] FLOW CYTOMETRY FOR LEUKEMIA/LYMPHOMA (FCLL) REFLEX Collected: 06/20/2024 1:28 PM Status: F Source: [place] Order Comment: Specimen Type : BLOOD SPECIMEN Ordering Facility: [facility] Address: [address] [place] [address] TYPE CODE TESTS RESULT OUT OF RANGE REFERENCE UNITS PATHOLOGY FLOWINTERP INTERPRETATION Result Comment: The findings show an immunophenotypically distinct T cell subset (7% of lymphocytes, ~224 cells/uL), which shows aberrant diminished CD3 expression (CD3+ dim), with an immunophenotype most consistent with T-cell large granular lymphocytes (CD8+ CD56+ CD57+), and monotypic (negative) TRBC1 expression. There is no evidence of a monotypic B cell population. Overall, the differential diagnosis includes a reactive T cell expansion (e.g. due to underlying autoimmune disorder, inflammation, infection, among other causes) versus a T cell lymphoproliferative disorder (e.g. T-large granular lymphocytic leukemia). If clinically indicated, PCR for T-cell receptor gene rearrangement (peripheral blood test code: TCBMD) may be of interest to document T-cell monoclonality. Recommend repeating flow cytometric analysis in 6 months, or other clinically appropriate interval, to determine if this T-cell population persists or expands over time. Correlation with clinical findings, and results of any ancillary studies, is recommended for definitive diagnosis. at 0742 EDT PATHOLOGY [id number] FLOW CYTOMETRY RESULTS Result Comment: Specimen typ e: Peripheral blood CBC (06/20/2024): WBC = 9.14 k/uL; Hgb = 12.3 g/dL; Plt = 312 k/uL Differential (%): Neutrophil: 66; Lymphocyte: 28; Monocyte: 5; Eosinophil: 1; Basophil: 0 Morphology comments: Lymphocytes are polymorphous, including small with nonspecific morphology, a subset with cytoplasmic blebs and inconspicuous nucleoli (25% of lymphocytes), and large granular lymphocytes (11% of lymphocytes). The red cells and platelets show unremarkable morphology. CBC with differential count shows no diagnostic abnormalities. Viability: 96% Results: Flow Cytometry Peripheral Blood Immunophenotyping Marker Normal Cell Type Result (Abnormal T cell) CD2 T/NK cells Positive CD3 T-cells Positive (dim) CD4 T-cell subset Negative CD5 T-cells Positive CD7 T/NK-cells Positive CD8 T-cell subset Positive CD10 B-cell subset Negative CD13 Myeloid Negative CD16/56 NK cells Positive CD16 Myeloid Negative CD19 B-cells Negative CD20 B-cells Negative CD23 B-cells subset Negative CD45 Edmond-leukocyte Positive CD56 T/NK-cells Positive CD57 T/NK-cells Positive CD123 Dendritic Negative CD200 B-cells Negative Alpha/Beta T-cells Positive Gamma/Delta T-cells Negative kappa/lambda B-cells Negative TRBC1 T-cells Abnormal, monotypic (negative) Flow cytometric analysis of the peripheral blood reveals that 35% of total events have the CD45 and side scatter properties of lymphocytes. The lymphocytes are composed of a mixture of T-cells (79%; CD4:CD8 ratio = 2.50), NK cells (9%) and polytypic B-cells (11%). There is a small but distinct abnormal T cell subset (7% of lymphocytes, ~224 cells/uL), which is immunophenotypically distinct (CD3+dim), positive for CD45, CD3 (dim), CD2, CD5 (slightly dimmer), CD7 (slightly dimmer), CD8, CD16/56, CD56, CD57, and alpha/beta, with abnormal (negative) monotypic TRBC1 expression, and negative for the remaining tested markers as listed above. There is also a small population of double negative (CD3+CD4-CD8-) T cells (~2% of lymphocytes, ~64 cells/uL), which are positive for CD45, CD3 (bright), CD2, CD5 (slightly dimmer), CD7, CD16/56, and gamma/delta, negative for CD4, CD8, and TRBC1, most consistent with gamma-delta T cells. [facility] 06/26/2024 PATHOLOGY [id number] GROSS DESCRIPTION A. Blood Result Comment: RECEIVED 8 M LS PERIPHERAL BLOOD (TOTAL) IN TWO EDTA TUBES PATHOLOGY [id number] DIAGNOSIS COMMENT Result Comment: This test wa s developed and its performance characteristics determined by [facility] ([facility] It has not been cleared or approved by the FDA. [facility] is regulated under CLIA as qualified to perform high-complexity testing. This test is used for clinical purposes. It should not be regarded as investigational or for research. PATHOLOGY [facility] FINAL PERFORMING LAB Result Comment: Diagnostic i nterpretation performed at [facility], [address] [place] [address] CLIA# [id number] Husbandry Person: Johnny Brito M.D. Performed By: #### FCLLRFLX #### [facility] CLIA [id number] [address] [place] [address] [place] PROGRESS Observed: 06/20/2024 12:06 PM Status: COMPLETED Source: [place] HNO ID: [id number] Author: DEAN THEODORE, DO Service: ? Author Type: Physician Type: Progress Notes Filed: 06/20/2024 17:14 Note Text: HPI: The patient is a 68-year-old female with a past medical history significant for atrial fibrillation, bipolar disorder, dementia, depression, hypertension, previous smoker, GERD, right-sided hearing loss, hiatal hernia, high cholesterol, irritable bowel, migraine, CAD (non-ST elevation [place] 01/06/2018), psoriatic arthritis, sleep apnea, osteoporosis, Takotsubo syndrome and type 2 diabetes. Patient was admitted to [facility] on 08/05/2022 following a mechanical fall in her driveway due to chronic foot drop. She landed on her left side and struck her head. Evidently no loss of conscious. However she was not able to get up due to left hip pain. Squad brought her in. She also complains of left rib pain. CT scan cervical spine demonstrated no fracture. Rib series of the left side was negative. However she was found to have a suspected nondisplaced intertrochanteric fracture of the left hip. Patient was admitted and underwent intertrochanteric hip fracture repair with intramedullary nail left femur on 08/06/2022. Rapid response for possible stroke was called on 08/07. Patient was noted to be conversing and nonsensical terms. Hemoglobin had dropped from 12.4-7.7 the day prior. Initial NIH was 12. CT of the head was unremarkable. CTA head and neck showed no acute issue. MRI showed no stroke. She had increasing confusion with narcotics. She had a chest x-ray on 08/13 that demonstrated a large left pleural effusion. CT chest was then performed which demonstrated small right pleural effusion large left pleural effusion. There were also multiple osseous lytic lesions in the thoracic and lumbar spine as well as the ribs. Underwent left-sided thoracentesis ultrasound-guided on 08/14/2022. 900 mL of bloody fluid was drained. Cytology negative for malignant cells. Cultures were positive for Prevotella infection. She was treated with metronidazole 500 mg 3 times daily for [address] Chest 08/13/2022: Lungs: Bilateral perihilar consolidations with groundglass opacities. Mediastinum: The heart is mildly enlarged. Small pericardial effusion. No mediastinal, hilar or axillary adenopathy. Mild aortic arch and coronary artery calcifications. Pleura: Large left and small right pleural effusions. Bones/Soft tissues: There are diffuse degenerative changes of the spine. There are multiple sclerotic and lytic lesions throughout the appendicular and axial skeleton with several chronic pathologic rib fractures as well as several acute minimally displaced pathologic rib fractures involving the left anterolateral third, fourth, fifth, sixth, seventh, and eighth ribs. There is also a partially visualized lytic lesion involving the T12 vertebral body with a pathologic fracture. Upper abdomen: Partially visualized 4.4 cm intermediate density cyst in the right upper renal pole. ADDENDUM by Gallito Crisostomo MD on 08/13/[address]/Chest without Contrast IMPRESSION: Cardiomegaly with pulmonary edema, small pericardial effusion and large left/small right pleural effusions. Cannot rule out underlying infection or malignancy. Partially visualized 4.4 cm intermediate density cyst in the right upper renal pole is concerning for possible renal cell carcinoma. Recommend follow-up multiphase CT or MR abdomen with and without contrast for further evaluation. Findings concerning for osseous metastatic disease from an unknown primary with multiple sclerotic and lytic lesions throughout the appendicular and axial skeleton as well as several chronic pathologic rib fractures and several acute minimally displaced pathologic rib fractures involving the left anterolateral third, fourth, fifth, sixth, seventh, and eighth ribs. There is also a partially visualized lytic lesion involving the T12 vertebral body with a pathologic fracture. Recommend CT abdomen and pelvis with and without contrast for further evaluation. CT A/P 08/14/2022: FINDINGS: Bilateral pleural effusions left greater than right with bibasilar infiltration and/or atelectasis. Coronary artery calcification. Normal liver. Normal gallbladder and extrahepatic biliary system. Normal spleen. Normal pancreas. Normal bilateral adrenal glands. There is a 6.2 signed by 5.9 cm cyst in the upper midportion of the right kidney. 3.9 cm x 4.2 cm cyst in the lower pole of the left kidney. Normal visualized stomach. Normal small intestine. Normal colon. The appendix is visualized and appears normal. There is diffuse atherosclerotic calcification of the abdominal aorta, without a demonstrated aneurysm. Normal inferior vena cava. Normal retroperitoneum. Normal urinary bladder. There is absence of the uterus consistent with a prior hysterectomy. Increased soft tissue density in the lateral lower abdominal wall extending to the region of the left hip joint suggestive of postoperative left hip hematoma. Multiple compression fractures and heterogeneous appearance of the visualized lower thoracic and lumbar vertebrae suggestive of diffuse metastatic disease. Status post ORIF of proximal left femoral fracture. IMPRESSION: Metastatic deposits in the visualized thoracic and lumbar vertebrae with multiple compression fractures. Bilateral renal cysts. Findings suggestive of postoperative changes in the soft tissues overlying the lower left subcutaneous tissues extending to the region of the left hip joint. Bilateral pleural effusions left greater than right with underlying infiltration and/or atelectasis. Her appetite is poor. Evidently she weighed 289 pounds several years ago and is now down to about 180 pounds. She occasionally has dysphagia from dry mouth. Denies nausea and reflux. Bowels move every several days. She is not sure if she has had any black or bloody stools. Denies abdominal pain. 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 Extends to the knees bilaterally. Involves the fingers of the hands. Has a chronic cough. Feels much less short of breath since thoracentesis. She is at the [facility] in skilled care. She was told by her orthopedic surgeon not to do any further physical therapy. She requires a Ava lift. She spends a very short amount of time in the chair on a daily basis. Eating part of 1 meal a day. Has not had a previous screening mammogram. Presents for ongoing hematologic management. Interim history: Previously had protein electrophoresis and immunofixation of the serum that was negative. This was done at [facility]. CT guided bone marrow biopsy of lytic lesion of iliac bone was performed in 2022. Flow cytometry showed markedly decreased CD4-CD8 ratio and a relatively increased CD4 negative CD8 negative T-cell population gamma delta negative, alpha-beta positive. 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 Also could be associated with ITP and autoimmune hemolytic anemia. No core biopsy was obtained. The cellularity of the aspirate was 10 to 15%. MD ratio was normal. The sample was spicular and cellular. No findings of myelodysplasia morphologically. Plasma cells quantitated at 2%. She had no other findings to support that diagnosis. Typically diagnosed in children. She had IgG subsets performed on 10/11/2023. Normal levels of all 4 IgG subclasses. IgA and IgM were normal. Most recent chemistry panel from 05/17/2024 revealed a serum creatinine 1.13. Serum calcium 8.8 mg/dL. CBC same day showed total white count 13,000. Absolute lymphocyte count 2470. Platelet count 249,000. Hemoglobin 11.9 g/dL. MCV 89. She is currently in rehabilitation. Looks much better than when I saw her 2 years ago. However, she did have another hip fracture shortly after I saw her in 2022. PAST MEDICAL HISTORY Diagnosis Date Anxiety state Chronic narcotic use Percocet 4 times daily 2005 until Depressive disorder, not elsewhere classified whole adult life Esophageal reflux Generalized anxiety disorder 02/12/2005 Dr. Borges Generalized osteoarthrosis, unspecified site Hip fracture (HCC) Lumbago 06/05/2004 fractured L5; follows with DR. LINDSEY Morbid obesity ([facility]) since quit smoking Osteopenia Osteoporosis Type II or unspecified type diabetes mellitus without mention of complication, not stated as uncontrolled late 40's Unspecified essential hypertension late 40's Unspecified urinary incontinence late 40's urgency AND stress-induced PAST SURGICAL HISTORY Procedure Laterality Date EXC LESION TDN SHTH/JT CAPSL HAND/FNGR Right 04/16/2015 Right index trigger finger release FASCIOTOMY PALMAR OPEN PARTIAL Right 07/02/2015 Dupuytren's contracture excision HIP SURGERY HX Left 07/2022 INCISE FINGER TENDON SHEATH Right 07/02/2015 Right ring trigger finger release NEUROPLASTY AND/TRANSPOSITION ULNAR NERVE ELBOW Right 07/02/2015 Right elbow ulnar nerve decompression OOPHORECTOMY PARTIAL/TOTAL UNI/BI 02/12/1979 Oophorectomy rt PAST SURGICAL HISTORY OF - carpal tunnel and trigger finger, right; Dr. Serrano REPAIR FIRST ABDOMINAL WALL HERNIA 02/12/1997 Hernia repair, incisional RPR RECRT INCAL/VNT HERNIA REDUCIBLE 04/08/2012 with removal of old mesh TONSILLECTOMY PRIMARY/SECONDARY <AGE 12 02/12/1957 Tonsillectomy TOTAL ABDOMINAL HYSTERECT W/WO RMVL TUBE OVARY 02/12/1982 and bladder sling; BENIGN (fibroids) ALLERGIES Allergen Reactions Codeine Intolerance Lipitor [Atorvastat* Naproxen Intolerance Vicodin [Hydrocodon* Itching Social History Tobacco Use Smoking status: Former Current packs/day: 0.00 Average packs/day: 0.5 packs/day for 14.0 years (7.0 ttl pk-yrs) Types: Cigarettes Start date: 07/05/1973 Quit date: 07/06/1987 Years since quittin.9 Smokeless tobacco: Never Vaping Use Vaping status: Never Used Substance Use Topics Alcohol use: No Drug use: Yes Frequency: 1.0 times per week Types: Marijuana Family History Problem Relation Age of Onset Diabetes Mother Hypertension Mother Heart Mother rhythm (syncope) Alzheimer's Disease Mother Hypertension Father Breast Cancer Sister Systemic Lupus Erythematosus Sister Diabetes Maternal Grandmother ROS: See HPI. The remainder of the 10 point review of systems is negative. PHYSICAL EXAM: Vitals: Blood pressure 129/75, pulse 77, temperature 36.3 ?C (97.3 ?F), temperature source Temporal, height 157.3 cm (5' 1.91), weight 64.9 kg (143 lb), SpO2 99%. Chronically ill-appearing and in no acute distress. EYES: Sclerae are anicteric bilaterally. ENT: Oral mucosa is unremarkable. There is no sign of thrush or mucositis. Dentition is in very poor repair. LYMPHATIC: There is no palpable cervical, supraclavicular, axillary adenopathy. RESPIRATORY: With limited auscultatory exam, she can roll from side to side and she has clear breath sounds at both bases. CARDIOVASCULAR: Rhythm is regular. BREAST: Family acted as manufacturing engineer supervisor. No suspicious mass or nodule bilaterally. ABDOMEN: The abdomen is nondistended. No splenomegaly or hepatomegaly. No tenderness. Extremities: No swelling or edema. SKIN: No jaundice or rash. No petechiae. NEUROLOGIC: fruit dumper II-XII are grossly intact. Resolved right-sided foot drop. MUSCULOSKELETAL: Generalized muscle wasting. LABS: Serum electrophoresis and immunofixation demonstrated no evidence of monoclonal protein by electrophoresis. Immunofixation negative. Test performed at [facility] 08/16/2022. UA x2 while at [facility] on 08/07 and 08/13 were both negative for occult blood. Mild proteinuria was observed. ASSESSMENT/PLAN: (M89.8X9) Lytic lesion of bone on x-ray (primary encounter diagnosis) (M81.0) Osteoporosis without current pathological fracture, unspecified osteoporosis type Assessment: -The patient is a 68-year-old female with a past medical history as outlined above. She has advanced osteoporosis and underwent nailing of left hip fracture from mechanical fall in 2022. Imaging during that hospitalization revealed large left-sided pleural effusion. Fluid was bloody but cytology was negative. Infected and treated with antibiotic. She had multiple diffuse sclerotic and lytic lesions. Serum protein electrophoresis and immunofixation negative. - Directed biopsy of one of the lytic lesions in the iliac bones showed no evidence of myeloma or other hematologic malignancy or myelodysplasia. Other results as above. - Recent CT scans of chest, abdomen pelvis done in April revealed no evidence of solid organ malignancy. - She has a diagnosis of osteoporosis and had been on alendronate 70 mg weekly. This was discontinued when she was transition to rehabilitation. - MRI from 2015 showed vertebral compression fractures. X-ray of the lumbar spine from July 2009 demonstrated severe demineralization of the osseous structures. There is severe central compression of L2 which was noted to have progressed since 2004. Superior endplate depression at L1 and L4 were also noted. - I can find no record of bone density testing on her in either the [facility] or [facility] system. -I reviewed the bone marrow biopsy results with the patient and her daughter today. Explained that there appears to be no evidence of metastatic malignancy. I believe she has very advanced osteoporosis and needs expert management of it. Plan: - Recheck CBC with differential today. - Serum and urine electrophoresis and immunofixation. - Lymphocyte subsets. - Flow cytometry of peripheral blood. - Referral to endocrinology. Portions of this documentation were copied and pasted from my previous office visit note dated 09/04/2022 in order to provide a cohesive continuity of the history. The note has been reviewed and edited and updated as necessary. I spent a total of 50 minutes on the date of the service which included preparing to see the patient (reviewing electronic record via [facility] system), [id number] patient care, completing clinical documentation, counseling and educating the patient/family/caregiver, ordering medications, tests, or procedures, communicating with other HCPs (not separately reported), and communicating results to the patient/family/caregiver. Dean Theodore DO CNOVSP Observed: 06/20/2024 11:40 AM Status: COMPLETED Source: [place] Visit ([place]) Office ([place]) LUBA BENAVIDEZ ([id number]) 1955 F Date Time Provider Department 06/20/24 11:40 AM DEAN THEODORE During your visit today, we recorded the following information about you: Temperature Pulse Blood pressure Weight 97.3 degrees 77/minute 129/75 64.9 kg Height 1.572 m Dean Theodore DO 06/20/2024 5:14 PM Signed HPI: The patient is a 68-year-old female with a past medical history significant for atrial fibrillation, bipolar disorder, dementia, depression, hypertension, previous smoker, GERD, right-sided hearing loss, hiatal hernia, high cholesterol, irritable bowel, migraine, CAD (non-ST elevation [place] 01/06/2018), psoriatic arthritis, sleep apnea, osteoporosis, Takotsubo syndrome and type 2 diabetes. Patient was admitted to [facility] on 08/05/2022 following a mechanical fall in her driveway due to chronic foot drop. She landed on her left side and struck her head. Evidently no loss of conscious. However she was not able to get up due to left hip pain. Squad brought her in. She also complains of left rib pain. CT scan cervical spine demonstrated no fracture. Rib series of the left side was negative. However she was found to have a suspected nondisplaced intertrochanteric fracture of the left hip. Patient was admitted and underwent intertrochanteric hip fracture repair with intramedullary nail left femur on 08/06/2022. Rapid response for possible stroke was called on 08/07. Patient was noted to be conversing and nonsensical terms. Hemoglobin had dropped from 12.4-7.7 the day prior. Initial NIH was 12. CT of the head was unremarkable. CTA head and neck showed no acute issue. MRI showed no stroke. She had increasing confusion with narcotics. She had a chest x-ray on 08/13 that demonstrated a large left pleural effusion. CT chest was then performed which demonstrated small right pleural effusion large left pleural effusion. There were also multiple osseous lytic lesions in the thoracic and lumbar spine as well as the ribs. Underwent left-sided thoracentesis ultrasound-guided on 08/14/2022. 900 mL of bloody fluid was drained. Cytology negative for malignant cells. Cultures were positive for Prevotella infection. She was treated with metronidazole 500 mg 3 times daily for [address] Chest 08/13/2022: Lungs: Bilateral perihilar consolidations with groundglass opacities. Mediastinum: The heart is mildly enlarged. Small pericardial effusion. No mediastinal, hilar or axillary adenopathy. Mild aortic arch and coronary artery calcifications. Pleura: Large left and small right pleural effusions. Bones/Soft tissues: There are diffuse degenerative changes of the spine. There are multiple sclerotic and lytic lesions throughout the appendicular and axial skeleton with several chronic pathologic rib fractures as well as several acute minimally displaced pathologic rib fractures involving the left anterolateral third, fourth, fifth, sixth, seventh, and eighth ribs. There is also a partially visualized lytic lesion involving the T12 vertebral body with a pathologic fracture. Upper abdomen: Partially visualized 4.4 cm intermediate density cyst in the right upper renal pole. ADDENDUM by Gallito Crisostomo MD on 08/13/[address]/Chest without Contrast IMPRESSION: Cardiomegaly with pulmonary edema, small pericardial effusion and large left/small right pleural effusions. Cannot rule out underlying infection or malignancy. Partially visualized 4.4 cm intermediate density cyst in the right upper renal pole is concerning for possible renal cell carcinoma. Recommend follow-up multiphase CT or MR abdomen with and without contrast for further evaluation. Findings concerning for osseous metastatic disease from an unknown primary with multiple sclerotic and lytic lesions throughout the appendicular and axial skeleton as well as several chronic pathologic rib fractures and several acute minimally displaced pathologic rib fractures involving the left anterolateral third, fourth, fifth, sixth, seventh, and eighth ribs. There is also a partially visualized lytic lesion involving the T12 vertebral body with a pathologic fracture. Recommend CT abdomen and pelvis with and without contrast for further evaluation. CT A/P 08/14/2022: FINDINGS: Bilateral pleural effusions left greater than right with bibasilar infiltration and/or atelectasis. Coronary artery calcification. Normal liver. Normal gallbladder and extrahepatic biliary system. Normal spleen. Normal pancreas. Normal bilateral adrenal glands. There is a 6.2 signed by 5.9 cm cyst in the upper midportion of the right kidney. 3.9 cm x 4.2 cm cyst in the lower pole of the left kidney. Normal visualized stomach. Normal small intestine. Normal colon. The appendix is visualized and appears normal. There is diffuse atherosclerotic calcification of the abdominal aorta, without a demonstrated aneurysm. Normal inferior vena cava. Normal retroperitoneum. Normal urinary bladder. There is absence of the uterus consistent with a prior hysterectomy. Increased soft tissue density in the lateral lower abdominal wall extending to the region of the left hip joint suggestive of postoperative left hip hematoma. Multiple compression fractures and heterogeneous appearance of the visualized lower thoracic and lumbar vertebrae suggestive of diffuse metastatic disease. Status post ORIF of proximal left femoral fracture. IMPRESSION: Metastatic deposits in the visualized thoracic and lumbar vertebrae with multiple compression fractures. Bilateral renal cysts. Findings suggestive of postoperative changes in the soft tissues overlying the lower left subcutaneous tissues extending to the region of the left hip joint. Bilateral pleural effusions left greater than right with underlying infiltration and/or atelectasis. Her appetite is poor. Evidently she weighed 289 pounds several years ago and is now down to about 180 pounds. She occasionally has dysphagia from dry mouth. Denies nausea and reflux. Bowels move every several days. She is not sure if she has had any black or bloody stools. Denies abdominal pain. 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 Extends to the knees bilaterally. Involves the fingers of the hands. Has a chronic cough. Feels much less short of breath since thoracentesis. She is at the [facility] in skilled care. She was told by her orthopedic surgeon not to do any further physical therapy. She requires a Ava lift. She spends a very short amount of time in the chair on a daily basis. Eating part of 1 meal a day. Has not had a previous screening mammogram. Presents for ongoing hematologic management. Interim history: Previously had protein electrophoresis and immunofixation of the serum that was negative. This was done at [facility]. CT guided bone marrow biopsy of lytic lesion of iliac bone was performed in 2022. Flow cytometry showed markedly decreased CD4-CD8 ratio and a relatively increased CD4 negative CD8 negative T-cell population gamma delta negative, alpha-beta positive. 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 Also could be associated with ITP and autoimmune hemolytic anemia. No core biopsy was obtained. The cellularity of the aspirate was 10 to 15%. MD ratio was normal. The sample was spicular and cellular. No findings of myelodysplasia morphologically. Plasma cells quantitated at 2%. She had no other findings to support that diagnosis. Typically diagnosed in children. She had IgG subsets performed on 10/11/2023. Normal levels of all 4 IgG subclasses. IgA and IgM were normal. Most recent chemistry panel from 05/17/2024 revealed a serum creatinine 1.13. Serum calcium 8.8 mg/dL. CBC same day showed total white count 13,000. Absolute lymphocyte count 2470. Platelet count 249,000. Hemoglobin 11.9 g/dL. MCV 89. She is currently in rehabilitation. Looks much better than when I saw her 2 years ago. However, she did have another hip fracture shortly after I saw her in 2022. PAST MEDICAL HISTORY Diagnosis Date Anxiety state Chronic narcotic use Percocet 4 times daily 2005 until Depressive disorder, not elsewhere classified whole adult life Esophageal reflux Generalized anxiety disorder 02/12/2005 Dr. Borges Generalized osteoarthrosis, unspecified site Hip fracture (HCC) Lumbago 06/05/2004 fractured L5; follows with DR. LINDSEY Morbid obesity ([facility]) since quit smoking Osteopenia Osteoporosis Type II or unspecified type diabetes mellitus without mention of complication, not stated as uncontrolled late 40's Unspecified essential hypertension late 40's Unspecified urinary incontinence late 40's urgency AND stress-induced PAST SURGICAL HISTORY Procedure Laterality Date EXC LESION TDN SHTH/JT CAPSL HAND/FNGR Right 04/16/2015 Right index trigger finger release FASCIOTOMY PALMAR OPEN PARTIAL Right 07/02/2015 Dupuytren's contracture excision HIP SURGERY HX Left 07/2022 INCISE FINGER TENDON SHEATH Right 07/02/2015 Right ring trigger finger release NEUROPLASTY AND/TRANSPOSITION ULNAR NERVE ELBOW Right 07/02/2015 Right elbow ulnar nerve decompression OOPHORECTOMY PARTIAL/TOTAL UNI/BI 02/12/1979 Oophorectomy rt PAST SURGICAL HISTORY OF - carpal tunnel and trigger finger, right; Dr. Serrano REPAIR FIRST ABDOMINAL WALL HERNIA 02/12/1997 Hernia repair, incisional RPR RECRT INCAL/VNT HERNIA REDUCIBLE 04/08/2012 with removal of old mesh TONSILLECTOMY PRIMARY/SECONDARY <AGE 12 02/12/1957 Tonsillectomy TOTAL ABDOMINAL HYSTERECT W/WO RMVL TUBE OVARY 02/12/1982 and bladder sling; BENIGN (fibroids) ALLERGIES Allergen Reactions Codeine Intolerance Lipitor [Atorvastat* Naproxen Intolerance Vicodin [Hydrocodon* Itching Social History Tobacco Use Smoking status: Former Current packs/day: 0.00 Average packs/day: 0.5 packs/day for 14.0 years (7.0 ttl pk-yrs) Types: Cigarettes Start date: 07/05/1973 Quit date: 07/06/1987 Years since quittin.9 Smokeless tobacco: Never Vaping Use Vaping status: Never Used Substance Use Topics Alcohol use: No Drug use: Yes Frequency: 1.0 times per week Types: Marijuana Family History Problem Relation Age of Onset Diabetes Mother Hypertension Mother Heart Mother rhythm (syncope) Alzheimer's Disease Mother Hypertension Father Breast Cancer Sister Systemic Lupus Erythematosus Sister Diabetes Maternal Grandmother ROS: See HPI. The remainder of the 10 point review of systems is negative. PHYSICAL EXAM: Vitals: Blood pressure 129/75, pulse 77, temperature 36.3 ?C (97.3 ?F), temperature source Temporal, height 157.3 cm (5' 1.91), weight 64.9 kg (143 lb), SpO2 99%. Chronically ill-appearing and in no acute distress. EYES: Sclerae are anicteric bilaterally. ENT: Oral mucosa is unremarkable. There is no sign of thrush or mucositis. Dentition is in very poor repair. LYMPHATIC: There is no palpable cervical, supraclavicular, axillary adenopathy. RESPIRATORY: With limited auscultatory exam, she can roll from side to side and she has clear breath sounds at both bases. CARDIOVASCULAR: Rhythm is regular. BREAST: Family acted as manufacturing engineer supervisor. No suspicious mass or nodule bilaterally. ABDOMEN: The abdomen is nondistended. No splenomegaly or hepatomegaly. No tenderness. Extremities: No swelling or edema. SKIN: No jaundice or rash. No petechiae. NEUROLOGIC: fruit dumper II-XII are grossly intact. Resolved right-sided foot drop. MUSCULOSKELETAL: Generalized muscle wasting. LABS: Serum electrophoresis and immunofixation demonstrated no evidence of monoclonal protein by electrophoresis. Immunofixation negative. Test performed at [facility] 08/16/2022. UA x2 while at [facility] on 08/07 and 08/13 were both negative for occult blood. Mild proteinuria was observed. ASSESSMENT/PLAN: (M89.8X9) Lytic lesion of bone on x-ray (primary encounter diagnosis) (M81.0) Osteoporosis without current pathological fracture, unspecified osteoporosis type Assessment: -The patient is a 68-year-old female with a past medical history as outlined above. She has advanced osteoporosis and underwent nailing of left hip fracture from mechanical fall in 2022. Imaging during that hospitalization revealed large left-sided pleural effusion. Fluid was bloody but cytology was negative. Infected and treated with antibiotic. She had multiple diffuse sclerotic and lytic lesions. Serum protein electrophoresis and immunofixation negative. - Directed biopsy of one of the lytic lesions in the iliac bones showed no evidence of myeloma or other hematologic malignancy or myelodysplasia. Other results as above. - Recent CT scans of chest, abdomen pelvis done in April revealed no evidence of solid organ malignancy. - She has a diagnosis of osteoporosis and had been on alendronate 70 mg weekly. This was discontinued when she was transition to rehabilitation. - MRI from 2015 showed vertebral compression fractures. X-ray of the lumbar spine from July 2009 demonstrated severe demineralization of the osseous structures. There is severe central compression of L2 which was noted to have progressed since 2004. Superior endplate depression at L1 and L4 were also noted. - I can find no record of bone density testing on her in either the [facility] or [facility] system. -I reviewed the bone marrow biopsy results with the patient and her daughter today. Explained that there appears to be no evidence of metastatic malignancy. I believe she has very advanced osteoporosis and needs expert management of it. Plan: - Recheck CBC with differential today. - Serum and urine electrophoresis and immunofixation. - Lymphocyte subsets. - Flow cytometry of peripheral blood. - Referral to endocrinology. Portions of this documentation were copied and pasted from my previous office visit note dated 09/04/2022 in order to provide a cohesive continuity of the history. The note has been reviewed and edited and updated as necessary. I spent a total of 50 minutes on the date of the service which included preparing to see the patient (reviewing electronic record via [facility] system), [id number] patient care, completing clinical documentation, counseling and educating the patient/family/caregiver, ordering medications, tests, or procedures, communicating with other HCPs (not separately reported), and communicating results to the patient/family/caregiver. Dean Theodore, DO Allergies As of Date: 06/20/2024 Noted Allergy Reaction CODEINE 04/30/2006 5 - Intolerance LIPITOR (ATORVASTATIN) 02/28/2007 NAPROXEN 02/26/2007 5 - Intolerance VICODIN (HYDROCODONE-ACETAMINOPHE*03/05/2009 9 - Itching Date Reviewed: 06/20/2024 Reviewed by: Darrick Tim MA - Fully Assessed Reason for Visit: New Patient [172] Primary Visit Diagnosis:Lytic lesion of bone on x-ray [M89.8X9] Other Visit Diagnosis:Osteoporosis without current pathological fracture, unspecified osteoporosis type [M81.0] Order(s):CONSULT TO ENDOCRINOLOGY [9007] Order #: [id number]: 1 FUTURE MONOCLONAL PROT UR W/INTERP [SQURMPA] Order #: [id number] FUTURE MONOCLONAL PROTEIN, SERUM (BLOOD) [SQSERMPA] Order #: [id number] FUTURE PROTEIN ELECTROPHORESIS SERUM W/INTERP [SQSEPG] Order #: [id number] FUTURE PROTEIN ELECT RND UR W/INTERP [SQUEPG] Order #: [id number] FUTURE IMMUNODEFICIENCY CDC [SQIMMDEF] Order #: [id number] FUTURE FLOW CYTOMETRY FOR LEUKEMIA/LYMPHOMA (FCLL) [VUD2441] Order #: [id number] FUTURE Follow-up and Disposition History for Encounter Date Provider Department Center 06/20/2024 [id number] THEODORE [place] [place] Prescriptions as of 06/20/2024 - amLODIPine (NORVASC) 10 mg tablet Take 10 mg by mouth once daily. - Senna 8.6 mg tab Take 8.6 mg by mouth two times a day as needed for constipation. - senna-docusate (SENNA-S) 8.6-50 mg per tablet Take 2 tablets by mouth daily at 6 am. - multivitamin,therapeutic (THERAPEUTIC MULTIVITAMIN ORAL) Take 1 tablet by mouth once daily. - cetirizine (ZYRTEC) 10 mg tablet Take 10 mg by mouth once daily. - donepezil (ARICEPT) 10 mg tablet Take 10 mg by mouth daily at 6 am. - apixaban (ELIQUIS) 2.5 mg tab(s) Take 2.5 mg by mouth two times a day. - Vitamin A AND D2 1,250-135 unit cap Take 1 tablet by mouth once daily. - gabapentin (NEURONTIN) 300 mg capsule Take 300 mg by mouth three times a day. - hydrOXYzine pamoate (VISTARIL) 25 mg capsule Take 25 mg by mouth three times a day as needed. - OTC PRODUCT Apply to affected area once daily. Lidocaine External Patch Apply to back topically in the morning for pain. Remove at bedtime. - aluminum AND magnesium hydroxide-simethicone (MAG-AL PLUS EXTRA STRENGTH) 400-400-40 mg/5 mL suspension Take 30 mL by mouth every 6 hours as needed. - melatonin 3 mg capsules Take 1 capsule by mouth daily at bedtime. - mirabegron (MYRBETRIQ) 50 mg Tb24 Take 50 mg by mouth daily at 6 am. - pantoprazole DR (PROTONIX) 40 mg tablet Take 40 mg by mouth once daily. - potassium chloride ER (KLOR-CON) 20 mEq tablet Take 20 mEq by mouth two times a day. - iv contrast (will be provided with radiology test) CT ABD/PEL -Inject, intravenously, once for 1 dose.No IV access, insert saline lock prior to the beginning of sedation, infusion, injection of imaging exam. Discontinue saline lock post exam. If Pt. has a central line or IVAD, may access for administration according to line specific nursing protocol. Once exam is complete flush line and de-access according to line specific nursing protocol in the CT contrast administration guidelines link. - enteric contrast (will be provided with radiology test) For CT ABD/PEL W IVCON Routine order Administer, As Directed One Time Only, via Oral, Rectal, both Oral and Rectal, Enteric Tube, Stoma or Indwelling Catheter, Enteric Contrast as designated per enteric contrast guidelines - atorvastatin (LIPITOR) 20 mg tablet Take 20 mg by mouth once daily. - bisacodyl (DULCOLAX) 10 mg supp 10 mg by RECTAL route once daily as needed for constipation. - mineral oil (FLEET MINERAL OIL ENEMA) enema 133 mL by RECTAL route as needed for constipation. - traMADol (ULTRAM) 50 mg tablet Take 50 mg by mouth every 8 hours as needed for pain. - lisinopril (ZESTRIL) 20 mg tablet Take 20 mg by mouth once daily. - magnesium hydroxide (MILK OF MAGNESIA) 400 mg/5 mL suspension Take 30 mL by mouth once daily as needed for constipation. - Multivitamin capsule Take 1 capsule by mouth once daily. - oxyCODONE-acetaminophen (PERCOCET) 5-325 mg tablet Take 1 tablet by mouth twice daily as needed for Pain for up to 30 days. - oxyCODONE-acetaminophen (PERCOCET) 5-325 mg tablet Take 1 tablet by mouth twice daily as needed for Pain for up to 30 days. - oxyCODONE-acetaminophen (PERCOCET) 5-325 mg tablet Take 1 tablet by mouth twice daily as needed for Pain for up to 30 days. - tiZANidine (ZANAFLEX) 4 mg tablet Take 1 tablet by mouth twice daily as needed. - VITAMIN D 50,000 unit capsule Take 1 capsule by mouth once each week. - carvedilol (COREG) 3.125 mg tablet Take 3.125 mg by mouth twice daily with meals. - PROCHLORPERAZINE MALEATE (COMPAZINE ORAL) Take 1 tablet by mouth. - MECLIZINE HCL (MECLIZINE ORAL) Take 1 tablet by mouth. - acetaminophen (TYLENOL) 325 mg tablet Take 500 mg by mouth every 4 hours as needed. 2 tablets - TENS Units logan 1 Device as needed. - FLUoxetine HCl (PROZAC) 40 mg capsule Take 40 mg by mouth once daily. - oxybutynin 5 mg tablet Take 2 tablets by mouth twice daily. - nystatin ointment APPLY TO AFFECTED AREA TWICE DAILY FOR 1-2WEEKS - glipiZIDE 10 mg tablet Take 1 tablet by mouth daily before breakfast. - simvastatin (ZOCOR) 40 mg tablet Take 1 tablet by mouth daily at bedtime. - lisinopril-hydrochlorothiazide 20-12.5 mg per tablet Take 1 tablet by mouth once daily. - PRILOSEC OTC 20 mg tablet Take 1 tablet by mouth once daily. Medication notes this encounter TIZANIDINE 4 MG TABLET >> Darrick Tim MA 06/20/2024 11:49 AM >> DARRICK TIM SunJune 20, 2024 11:49 AM 2 mg q8h MULTIVITAMIN CAPSULE >> Darrick Tim MA 06/20/2024 11:48 AM >> DARRICK TIM SunJune 20, 2024 11:48 AM D/C CELECOXIB 200 MG CAPSULE >> Darrick Tim MA 06/20/2024 12:03 PM >> DARRICK TIM SunJune 20, 2024 12:03 PM Not on retirement med. list CYCLOBENZAPRINE 5 MG TABLET >> Darrick Tim MA 06/20/2024 12:03 PM >> DARRICK TIM SunJune 20, 2024 12:03 PM Not on retirement med. list ERGOCALCIFEROL (VITAMIN D2) 1,250 MCG (50,000 UNIT) CAPSULE >> Darrick Tim MA 06/20/2024 11:55 AM >> DARRICK TIM SunJune 20, 2024 11:55 AM D/C FEXOFENADINE 180 MG TABLET >> Darrick Tim MA 06/20/2024 12:07 PM >> DARRICK TIM SunJune 20, 2024 12:07 PM Not on retirement med. list VITAMIN D2 1,250 MCG (50,000 UNIT) CAPSULE >> Darrick Tim MA 06/20/2024 11:55 AM >> DARRICK TIM SunJune 20, 2024 11:55 AM D/C TRANSCUTANEOUS ELECTRICAL NERVE STIMULATORS (TENS) DEVICE >> Darrick Tim MA 06/20/2024 12:04 PM >> DARRICK TIM SunJune 20, 2024 12:04 PM Not on retirement med. list OXYBUTYNIN CHLORIDE 5 MG TABLET >> Darrick Tim MA 06/20/2024 12:05 PM >> DARRICK TIM SunJune 20, 2024 12:05 PM Not on retirement med. list ALENDRONATE 70 MG TABLET >> Darrick Tim MA 06/20/2024 12:02 PM >> DARRICK TIM SunJune 20, 2024 12:02 PM Not on retirement list BUSPIRONE 15 MG TABLET >> Darrick Tim MA 06/20/2024 11:45 AM >> DARRICK TIM SunJune 20, 2024 11:45 AM 15 mg BID PRILOSEC OTC 20 MG TABLET,DELAYED RELEASE >> Darrick Tim MA 06/20/2024 12:04 PM >> DARRICK TIM SunJune 20, 2024 12:04 PM Not on retirement med. list Problem List As Of Date 06/20/2024 Noted Resolved Eating disorder, unspecified [F50.9] 06/25/2006 03/07/2018 Generalized anxiety disorder [F41.1] 06/25/2006 Major depressive disorder, recurrent episode, m*06/25/2006 Esophageal reflux [K21.9] 06/25/2006 Generalized osteoarthrosis, unspecified site [M*06/25/2006 Mitral valve disorders [I05.9] 06/25/2006 Lumbago [M54.50] 06/05/2004 Unspecified urinary incontinence [R32] Essential hypertension [I10] Depressive disorder, not elsewhere classified [* Osteopenia [M89.9, M94.9] Routine general medical examination at a health*07/27/2008 08/03/2012 Class: Chronic Routine gynecological examination [Z01.419] 07/27/2008 08/03/2012 Class: Chronic Mixed hyperlipidemia [E78.2] 07/27/2008 Type 2 diabetes mellitus without complication (*10/07/2008 Leukocytosis [D72.829] 06/07/2009 Right shoulder pain [M25.511] 11/18/2010 Recurrent incisional hernia with incarceration *03/21/2012 Trigger index finger of right hand [M65.321] 02/17/2015 Lesion of left ulnar nerve [G56.22] 02/17/2015 Bipolar disorder in partial remission (HCC) [F3*02/25/2015 Osteopenia [M85.80] 02/25/2015 Dupuytren's disease of palm [M72.0] 06/10/2015 Trigger ring finger of left hand [M65.342] 06/10/2015 Radiculopathy, lumbar region [M54.16] 11/01/2015 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*11/01/2015 DDD (degenerative disc disease), lumbar [M51.36*11/01/2015 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] 11/01/2015 Fracture of multiple ribs of right side [S22.41*01/21/2016 Compression of lumbar vertebra (HCC) [S32.000A] 03/17/2016 Spondylosis of lumbar region without myelopathy*10/27/2016 Psoriatic arthropathy (HCC) [L40.50] 08/06/2017 Other fracture of unspecified lumbar vertebra, *02/27/2018 Takotsubo cardiomyopathy [I51.81] 03/07/2018 Closed compression fracture of fifth lumbar melquiades*08/14/2018 Encounter Status:Closed by DEAN THEODORE on 06/20/24 CBC W AUTO DIFF BLD Collected: 06/20/2024 11:12 AM S tatus: [place] Source: [place] Order Comment: Specimen Type : BLOOD SPECIMEN Ordering Facility: [facility] Address: [address] [place] [address] TYPE CODE TESTS RESULT OUT OF RANGE REFERENCE UNITS LAB 6690-2([facility]) WBC # Bld Auto 7.64 3.70-11.00 k/uL LAB 789-8([facility]) RBC # Bld Auto 4.15 3.90-5.20 m/ uL LAB 718-7([facility]) Hgb Bld-mCnc 12.3 11.5-15.5 g/dL LAB 4544-3([facility]) Hct VFr Bld Auto 38.4 36.0-46.0 % LAB 787-2([facility]) MCV RBC Auto 92.5 80.0-100.0 fL LAB 785-6([facility]) MCH RBC Qn Auto 29.6 26.0-34.0 p g LAB 786-4([facility]) MCHC RBC Auto-mCnc 32.0 30.5-36.0 g/dL LAB 34859-4([facility]) RDW RBC-Rto 13.4 11.5-15.0 % LAB 777-3([facility]) Platelet # Bld Auto 271 150-400 k/uL LAB 54502-4([facility]) PMV Bld Auto 9.1 9.0-12.7 fL LAB 770-8([facility]) Neutrophils/leuk NFr Bld Auto 58.3 % LAB 751-8([facility]) Neutrophils # Bld Auto 4.45 1.45-7.50 k/uL LAB 736-9([facility]) Lymphocytes/leuk NFr Bld Auto 31.0 % LAB 731-0([facility]) Lymphocytes # Bld Auto 2.37 1.00-4.00 k/uL LAB 5905-5([facility]) Monocytes/leuk NFr Bld Auto 7.6 % LAB 742-7([facility]) Monocytes # Bld Auto 0.58 <0.87 k/uL LAB 713-8([facility]) Eosinophil/leuk NFr Bld Auto 2.7 % LAB 711-2([facility]) Eosinophil # Bld Auto 0.21 <0.46 k/uL LAB 706-2(LOINC) Basophils/leuk NFr Bld Auto 0.3 % LAB 704-7(LOINC) Basophils # Bld Auto <0.03 <0.11 k/uL LAB 35680-1(LOINC) Imm Granulocytes/giovanna k NFr Bld Auto 0.1 % LAB 36776-1(LOINC) Imm Granulocytes # Bld Auto <0.03 <0.10 k/uL LAB 70748-9(LOINC) nRBC/100 WBC Bld-Rto 0.0 /100 WBC LAB 771-6(LOINC) nRBC # Bld Auto <0.01 <0.01 k/u L LAB 55150-3(LOINC) Differential method Bld Auto Performed By: #### 17486-2 # ### [facility] CLIA [id number] [address] [place] [address] CNPN Observed: 05/29/2024 12:00 AM Status: COMPLETED Source: [place] Telephone (HEMAWS) LUBA BENAVIDEZ ([id number]) 1955 F Date Time Provider Department 05/29/24 DEAN THEODORE During your visit today, we recorded the following information about you: Daksha Tang 05/29/2024 3:05 PM Signed [facility] called stating that patient is back with them at this time. She is asking if patient needed a follow up with Dr. Theodore. Patient was here in 2022. Please call Jeannie at [phone] Katalina You LPN 05/29/2024 3:46 PM Signed Called [facility] was placed on hold. Sent fax to nurses telling them we saw patient once in 2022 (then twice in 2009 prior for a different diagnosis). I asked them if there was a reason they thought she needed to be seen. Will await communication back from retirement. NURY Cervantes Melanie, LPN 06/10/2024 9:38 AM Signed Patient has not seen oncology since last here. All imaging since last here printed and placed in Dr. Theodore's mailbox for review. I also placed the biopsy results from 09/18/[address] Theodore's mailbox. Est complex OV? NURY Shaw Paul A, DO 06/10/2024 11:19 AM Signed Yes, establish complex please. CBC. DO Santos Escalera Melanie, LPN 06/10/2024 11:29 AM Addendum PSS- please contact [facility] [phone] to get patient scheduled for an est complex OV with Dr. Theodore. Will also need a lab appointment for a CBC prior to OV that same day. NURY Shaw Angela 06/10/2024 12:32 PM Signed Spoke with [facility] and scheduled lab and est complex ov Daksha Morales 06/16/2024 1:52 PM Signed Daughter, Joo called asking if appointment is necessary and if patient is needing to be seen at [facility], can we just put in referral. She would like to speak with clinical. Cristina Graham LPN 06/16/2024 2:23 PM Signed PSS- I spoke with patient's daughter. Daughter would like to make sure the patient's insurance will cover the OV here. NURY Shaw Naomi 06/16/2024 2:33 PM Signed Yes it is covered here. Cristina Ivan LPN 06/16/2024 3:24 PM Signed Patient's daughter aware. Cristina Graham LPN Allergies As of Date: 05/29/2024 Noted Allergy Reaction CODEINE 04/30/2006 5 - Intolerance LIPITOR (ATORVASTATIN) 02/28/2007 NAPROXEN 02/26/2007 5 - Intolerance VICODIN (HYDROCODONE-ACETAMINOPHE*03/05/2009 9 - Itching Date Reviewed: 09/04/2022 Reviewed by: Darrick Tim MA - Fully Assessed Reason for Visit: Patient Update [1234] Prescriptions as of 06/16/2024 - iv contrast (will be provided with radiology test) CT ABD/PEL -Inject, intravenously, once for 1 dose.No IV access, insert saline lock prior to the beginning of sedation, infusion, injection of imaging exam. Discontinue saline lock post exam. If Pt. has a central line or IVAD, may access for administration according to line specific nursing protocol. Once exam is complete flush line and de-access according to line specific nursing protocol in the CT contrast administration guidelines link. - enteric contrast (will be provided with radiology test) For CT ABD/PEL W IVCON Routine order Administer, As Directed One Time Only, via Oral, Rectal, both Oral and Rectal, Enteric Tube, Stoma or Indwelling Catheter, Enteric Contrast as designated per enteric contrast guidelines - atorvastatin (LIPITOR) 20 mg tablet Take 20 mg by mouth once daily. - bisacodyl (DULCOLAX) 10 mg supp 10 mg by RECTAL route once daily as needed for constipation. - celecoxib (CELEBREX) 200 mg capsule Take 200 mg by mouth once daily. - cyclobenzaprine (FLEXERIL) 5 mg tablet Take 5 mg by mouth three times daily as needed for muscle spasm. - mineral oil (FLEET MINERAL OIL ENEMA) enema 133 mL by RECTAL route as needed for constipation. - ergocalciferol 50,000 unit capsule (VITAMIN D2, DRISDOL) Take 50,000 Units by mouth one time a week. - fexofenadine (ROC) 180 mg tablet Take 180 mg by mouth once daily. - traMADol (ULTRAM) 50 mg tablet Take 50 mg by mouth every 6 hours as needed for pain. - lisinopril (ZESTRIL) 20 mg tablet Take 20 mg by mouth once daily. - magnesium hydroxide (MILK OF MAGNESIA) 400 mg/5 mL suspension Take 30 mL by mouth once daily as needed for constipation. - Multivitamin capsule Take 1 capsule by mouth once daily. - oxyCODONE-acetaminophen (PERCOCET) 5-325 mg tablet Take 1 tablet by mouth twice daily as needed for Pain for up to 30 days. - oxyCODONE-acetaminophen (PERCOCET) 5-325 mg tablet Take 1 tablet by mouth twice daily as needed for Pain for up to 30 days. - oxyCODONE-acetaminophen (PERCOCET) 5-325 mg tablet Take 1 tablet by mouth twice daily as needed for Pain for up to 30 days. - tiZANidine (ZANAFLEX) 4 mg tablet Take 1 tablet by mouth twice daily as needed. - VITAMIN D 50,000 unit capsule Take 1 capsule by mouth once each week. - aspirin, enteric coated (ASPIRIN, ENTERIC COATED) 81 mg EC tablet Take 81 mg by mouth once daily. - carvedilol (COREG) 3.125 mg tablet Take 3.125 mg by mouth twice daily with meals. - PROCHLORPERAZINE MALEATE (COMPAZINE ORAL) Take 1 tablet by mouth. - MECLIZINE HCL (MECLIZINE ORAL) Take 1 tablet by mouth. - acetaminophen (TYLENOL) 325 mg tablet Take 500 mg by mouth every 8 hours. 2 tablets - TENS Units logan 1 Device as needed. - FLUoxetine HCl (PROZAC) 40 mg capsule Take 40 mg by mouth once daily. - FLUoxetine (PROZAC) 20 mg capsule Take 20 mg by mouth once daily. - oxybutynin 5 mg tablet Take 2 tablets by mouth twice daily. - nystatin ointment APPLY TO AFFECTED AREA TWICE DAILY FOR 1-2WEEKS - alendronate (FOSAMAX) 70 mg tablet Take 1 tablet by mouth once each week. - glipiZIDE 10 mg tablet Take 1 tablet by mouth daily before breakfast. - busPIRone (BUSPAR) 15 mg tablet Take 1 tablet by mouth twice daily. - simvastatin (ZOCOR) 40 mg tablet Take 1 tablet by mouth daily at bedtime. - lisinopril-hydrochlorothiazide 20-12.5 mg per tablet Take 1 tablet by mouth once daily. - PRILOSEC OTC 20 mg tablet Take 1 tablet by mouth once daily. Problem List As Of Date 05/29/2024 Noted Resolved Eating disorder, unspecified [F50.9] 06/25/2006 03/07/2018 Generalized anxiety disorder [F41.1] 06/25/2006 Major depressive disorder, recurrent episode, m*06/25/2006 Esophageal reflux [K21.9] 06/25/2006 Generalized osteoarthrosis, unspecified site [M*06/25/2006 Mitral valve disorders [I05.9] 06/25/2006 Lumbago [M54.50] 06/05/2004 Unspecified urinary incontinence [R32] Essential hypertension [I10] Depressive disorder, not elsewhere classified [* Osteopenia [M89.9, M94.9] Routine general medical examination at a [facility]*07/27/2008 08/03/2012 Class: Chronic Routine gynecological examination [Z01.419] 07/27/2008 08/03/2012 Class: Chronic Mixed hyperlipidemia [E78.2] 07/27/2008 Type 2 diabetes mellitus without complication (*10/07/2008 Leukocytosis [D72.829] 06/07/2009 Right shoulder pain [M25.511] 11/18/2010 Recurrent incisional hernia with incarceration *03/21/2012 Trigger index finger of right hand [M65.321] 02/17/2015 Lesion of left ulnar nerve [G56.22] 02/17/2015 Bipolar disorder in partial remission (HCC) [F3*02/25/2015 Osteopenia [M85.80] 02/25/2015 Dupuytren's disease of palm [M72.0] 06/10/2015 Trigger ring finger of left hand [M65.342] 06/10/2015 Radiculopathy, lumbar region [M54.16] 11/01/2015 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*11/01/2015 DDD (degenerative disc disease), lumbar [M51.36*11/01/2015 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] 11/01/2015 Fracture of multiple ribs of right side [S22.41*01/21/2016 Compression of lumbar vertebra (HCC) [S32.000A] 03/17/2016 Spondylosis of lumbar region without myelopathy*10/27/2016 Psoriatic arthropathy (HCC) [L40.50] 08/06/2017 Other fracture of unspecified lumbar vertebra, *02/27/2018 Takotsubo cardiomyopathy [I51.81] 03/07/2018 Closed compression fracture of fifth lumbar melquiades*08/14/2018 Encounter Status:Closed by ORIANA YANG on 06/10/24 ALLERGIES DATE TYPE / CODE NAME / CODE REACTION SEVERITY SOURCE 03/05/2009 DRUG/[id number] (SNOMED CT) HYDROCODONE-ACETAMINO PHEN ITCHING [facility] 02/28/2007 DRUG INGREDI/345898 003(SNOMED CT) ATORVASTATIN [facility] 02/26/2007 DRUG INGREDI/989764 003(SNOMED CT) NAPROXEN INTOLERANCE [facility] 04/30/2006 DRUG INGREDI/249923 003(SNOMED CT) CODEINE INTOLERANCE [facility] ENCOUNTERS ADMIT/DISCHARGE ACCOUNT NUMBER ADMITTING ENCOUNTER CLASS LOC ATION SOURCE 08/11/2024[id number]2024[id number] [facility] 06/20/2024/ 5 [id number] [facility] 06/20/2024/ 5 [id number] [facility] PAYERS ENCOUNTER GUARANTOR PAYER SUBSCRIBER SOURCE 08/11/2024 Primary Insurance:[facility] DUAL ADVANTAGE O SNPPolicy Number: [id number] Date:3811-82-44Nodc Name:Gifty BRAVOORENOB: [id number] [address] 08/11/2024 Secondary Insurance:[facility] MEDICAIDPolicy Number: [id number] Date:2343-19-72Gouc Name:Jean Hernandez OLIVIAOB: [id number] [address] 06/20/2024 Primary Insurance:[facility] DUAL ADVANTAGE O SNPPolicy Number: [id number] Date:1501-35-75Wkwo Name:Gifty BRAVOORENOB: [id number] [address] 06/20/2024 Secondary Insurance:[facility] MEDICAIDPolicy Number: [id number] Date:3027-55-38Dtvz Name:Jean BRAVOEDOB: [id number] [address] 06/20/2024 Primary Insurance[facility] [place] Number: [id number] Date:7238-06-59Hyuq Name:Gifty BRAVOEDOB: [id number] [address] 06/20/2024 Secondary Insurance:[facility] MEDICAIDPolicy Number: [id number] Date:0799-95-95Silq Name:Jean BRAVOEDOB: [id number] [address] 06/20/2024 Primary Insurance:[facility] DUAL ADVANTAGE [facility] [place] Number: [id number] Date:4383-81-76Zyzf Name:Gifty BRAVOEDOB: [id number] [address] 06/20/2024 Secondary Insurance:[facility] MEDICAIDPolicy Number: [id number] Date:0009-48-61Nmxf Name:Jean BRAVOEDOB: [id number] [id number] [place] [address]
--- OUTSIDE RECORDS SUMMARY | 2024-08-11 09:47 | XMS RPT_ITS ---
Author Name Auto Generated Organization OHIP Care Team Providers Care Director Of Workforce Development Name Role Phone DEAN THEODORE Attending Unavailable SHARLA, RUDY Primary Care Unavailable SHARLA, RUDY Primary Care Unavailable DEAN THEODORE Referring Unavailable SHARLA, RUDY Primary Care Unavailable DEAN THEODORE Referring Unavailable SHARLA, RUDY Primary Care Unavailable JEROMY LAI Attending Unavaila ble PROBLEMS DATE TYPE CONDITION / CODE ATTENDING STATUS [facility] 08/11/2024 Active Age-related osteoporosis without current pathological fracture / M81.0(ICD-10) JEROMY LAI Active [facility] 06/20/2024 Active Lytic bone lesio ns on xray / M89.8X9(ICD-10) NA Active [facility] 06/20/2024 Active 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 / D72.828(ICD-10) NA Active [facility] 06/20/2024 Active Lytic lesion of bone on x-ray / M89.8X9(ICD-10) DEAN THEODORE Active [facility] 06/20/2024 Active Osteoporosis wit hout current pathological fracture, unspecified osteoporosis type / M81.0(ICD-10) DEAN THEODORE Active [facility] PROCEDURES No Procedure Records Found RESULTS CNCO Observed: 09/08/2024 12:00 AM Status: COMPLETED Source: [facility] Letter Text PROGRESS Observed: 08/11/2024 10:12 AM Status: COMPLETED Source: [facility] HNO ID: [id number] Author: JEROMY LAI MD Service: ? Author Type: Physician Type: Progress Notes Filed: 08/11/2024 17:40 Note Text: Endocrinology and Metabolism [place] [facility] Visit Note NAME: Luba Benavidez is a 68 year old old female PCP: Rudy Boyer NP Requesting Provider: Dean Theodore MD [address] [facility] [address] My final recommendations will be communicated back [...] has weaned off Pepsi and now consumes [place] iced tea. Alcohol use: no Use of [...] Electro) Reviewed by Yayo Babb M.D. Result ([facility]) No M protein is identified. No M protein is identified. Staff Review ([facility]) Reviewed by Yayo Babb M.D. Protein, Urine [...] per documentation. No DXA scan done at [facility] or [facility] where are PCP is located Assessment/plan: Luba [...] which included preparing to see the patient, thkk-bk-rvyo patient care, completing clinical documentation, obtaining and/or reviewing separately obtained history, performing a medically appropriate examination, counseling and educating the patient/family/caregiver, ordering medications, tests, or procedures, independently interpreting results (not separately reported), and communicating results to the patient/family/caregiver. Jeromy Lai MD Endocrinology Associate Staff [facility] Endocrinology and Metabolism [place] [phone] Medical Decision Making: Medical Decision Making Level: 1 - N/A CNOV Observed: 08/11/2024 10:00 AM Status: COMPLETED Source: [facility] Office Visit (ENWSTR) LUBA BENAVIDEZ ([id number]) 1955 F Date Time Provider Department 08/11/24 10:00 AM JEROMY LAI During your visit today, we recorded the following information about you: Temperature Pulse Respiration Blood pressure 97.5 degrees 70/minute 12/minute 118/72 Weight 65.5 kg Jeromy Lai MD 08/11/2024 5:40 PM Signed Endocrinology and Metabolism [place] [facility] Visit Note NAME: Luba Benavidez is a 68 year old old female PCP: Rudy Boyer NP Requesting Provider: Dean Theodore MD [address] [facility] [address] My final recommendations will be communicated back [...] has weaned off Pepsi and now consumes [place] iced tea. Alcohol use: no Use of [...] 8 eGFR >60.0 mL/min/1.73m*2 >90.0 Latest Ref [facility] 06/20/2024 Albumin 3.43 - 5.41 g/dL 4.01 [...] Electro) Reviewed by Yayo Babb M.D. Result ([facility]) No M protein is identified. No M protein is identified. Staff Review ([facility]) Reviewed by Yayo Babb M.D. Protein, Urine [...] per documentation. No DXA scan done at [facility] or [facility] where are PCP is located Assessment/plan: Luba [...] which included preparing to see the patient, exac-jv-kdvr patient care, completing clinical documentation, obtaining and/or reviewing separately obtained history, performing a medically appropriate examination, counseling and educating the patient/family/caregiver, ordering medications, tests, or procedures, independently interpreting results (not separately reported), and communicating results to the patient/family/caregiver. Jeromy Lai MD Endocrinology Associate Staff [facility] Endocrinology and Metabolism [place] [phone] Medical Decision Making: Medical Decision Making Level: [...] usual activities immediately. Referring Provider: DEAN THEODORE [[id number]] Allergies As of Date: 08/11/2024 Noted Allergy [...] [M81.0] Order(s):CONSULT TO ENDOCRINOLOGY [9007] Order #: [id number]: 1 VITAMIN D 25 HYDROXY [SQVITD] Order #: [id number] FUTURE MAGNESIUM [SQMG1] Order #: [id number] FUTURE PHOSPHORUS INORGANIC [SQPHOS] Order #: [id number] FUTURE PTH INTACT [SQPTHI] Order #: [id number] FUTURE CALCIUM, IONIZED [SQICA] Order #: [id number] FUTURE COMPREHENSIVE METABOLIC PANEL [SQCMP] Order #: [id number] FUTURE ALK PHOS BONE SPEC [SQAPBONE] Order #: [id number] FUTURE C TELOPEPTIDE, BETA [SQCTELO] Order #: [id number] FUTURE DXA-AXIAL SKELETON WITH VFA [1291111] Order #: [id number] FUTURE BD DXA TRABECULAR BONE SCORE (TBS) [2115138] Order #: [id number] FUTURE Prescriptions as of 08/11/2024 - busPIRone [...] for Encounter Date Provider Department Center 08/11/2024 [id number]-FMABAYWP, SNIGDHA*VIVIAN Lopes [facility] Encounter Status:Closed by JEROMY LAI on 08/11/24 URINE PROTEIN ELECTROPHORESI S RANDOM (P) Collected: 06/20/2024 1:30 PM Status: F Source: [facility] Order Comment: Specimen Type : URINE SPECIMEN Ordering Facility: [facility] Address: [address] [id number] TYPE CODE TESTS RESULT OUT OF RANGE REFERENCE UNITS LAB 44711-4(LOINC) Albumin MFr Ur Elph 46.23 % LAB 38817-7(LOINC) Alpha1 Glob MFr Ur Elph 4.64 % LAB 65449-5(LOINC) Alpha2 Glob MFr Ur Elph 15.66 % LAB 69815-6(LOINC) B-Globulin MFr Ur Elph 19.44 % LAB 91337-5(LOINC) Gamma glob MFr Ur Elph 14.02 % LAB 24711-4(LOINC) Prot Pattern Ur Elph-Imp No definitive M protein is identified on protein electrophoresi s. No definitive M protein is identified on protein electrophores is. LAB UPESTF STAFF REVIEW (URINE ELECTRO) Reviewed by Yayo Babb M.D. Performed By: #### [id number] # ### [facility] CLIA [id number] [address] [place] [address] [place] MONOCLONAL PROT UR W/INTERP Collected: 06/20/2024 1:30 PM Status: F Source: [facility] Order Comment: Specimen Type : URINE SPECIMEN Ordering Facility: [facility] Address: [address] [place] [address] TYPE CODE TESTS RESULT OUT OF RANGE REFERENCE UNITS LAB UMPA UMPA RESULT No M protein is identified. No M protein is identified. LAB UMPSTF STAFF REVIEW (UMPA) Reviewed by Yayo Babb M.D. Performed By: #### URMPA ### # [facility] CLIA [id number] [address] [place] [address] STATES [facility] PROT UR-MCNC Collected: 06/20/2024 1:30 PM Status: F Source: [facility] Order Comment: Specimen Type : URINE SPECIMEN Ordering Facility: [facility] Address: [address] [place] [address] TYPE CODE TESTS RESULT OUT OF RANGE REFERENCE UNITS LAB 2888-6(LOINC) Prot Ur-mCnc 25 High 0-20 mg/dL Performed By: #### 2888-6 ## ## [facility] CLIA [id number] [address] [place] [address] [place] PROT SERPL-MCNC Collected: 06/20/2024 1:28 PM Status : F Source: [facility] Order Comment: Specimen Type : BLOOD SPECIMEN Ordering Facility: [facility] Address: [address] [place] [address] TYPE CODE TESTS RESULT OUT OF RANGE REFERENCE UNITS LAB 2885-2(LOINC) Prot SerPl-mCnc 6.9 6.3-8.0 g/dL Performed By: #### 2885-2 ## ## [facility] CLIA [id number] [address] [place] [address] OF [place] FLOW CYTOMETRY FOR LEUKEMIA/LYMPHOMA (FCLL) PERFORMABLE Collected: 06/20/2024 1:28 PM Status: F Source: [facility] Comment: Specimen Type : BLOOD SPECIMEN Ordering Facility: [facility] Address: [address] [place] [address] TYPE CODE TESTS RESULT OUT OF RANGE REFERENCE UNITS LAB [id number] FLOW CYTOMETRY ORDER STATUS Results will be reported under F case ID when completed Performed By: #### FCLLP ### # [facility] CLIA [id number] [address] [place] [address] [place] IMMUNODEFICIENCY PNL BLD FC Collected: 06/20/2024 1:28 PM Status: F Source: [facility] Comment: Specimen Type : BLOOD SPECIMEN Ordering Facility: [facility] Address: [address] [place] [address] TYPE CODE TESTS RESULT OUT OF RANGE REFERENCE UNITS LAB 8124-0(LOINC) CD3 Cells NFr Bld 79 60-89 % LAB 8122-4(LOINC) CD3 Cells # Bld 5626 614-1003 cells/uL LAB 8123-2(LOINC) CD3+CD4+ Cells NFr Bld 56 34-61 % LAB 74586-2(LOINC) CD3+CD4+ Cells # Bld 8594 013-3600 cells/uL LAB 8101-8(LOINC) CD3+CD8+ Cells NFr Bld 22 10-41 % LAB 71296-7(LOINC) CD3+CD8+ Cells # Bld 522 175-958 cells/uL LAB 79419-8(LOINC) CD3-CD19+ Cells NFr Bld 11 5-22 % LAB 83134-7(LOINC) CD3-CD19+ Cells # Bld 268 75-660 cells/uL LAB 8112-5(LOINC) CD3-CD16+CD 56+ Cells NFr Bld 10 5-25 % LAB 9728-7(LOINC) CD3-CD16+CD 56+ Cells # Bld 232 102-565 cells/uL LAB 83345-6(LOINC) CD3+CD4+ Cells/CD3+C D8+ Cells Bld 2.49 1.10-3.25 Performed By: #### 93793-9 # ### [facility] IA [id number] [address] [place] [address] [place] IMMUNOFIXATION SCREEN, SERUM Collected: 06/20/2024 1:28 PM Status: F Source: [facility] Comment: Specimen Type : BLOOD SPECIMEN Ordering Facility: [facility] Address: [address] [place] [address] TYPE CODE TESTS RESULT OUT OF RANGE REFERENCE UNITS LAB MPAR MPA RESULT No M protein is identified. No M protein is identified. LAB MPASTF STAFF REVIEW (MPA) Reviewed by Yayo Babb M.D. Performed By: #### IFESC ### # [facility] IA [id number] [address] [place] [address] [place] IMMUNOGLOBULINS,IGG,IGA,IGM Collected: 06/20/2024 1:28 PM Status: F Source: [facility] Comment: Specimen Type : BLOOD SPECIMEN Ordering Facility: [facility] Address: [address] [place] [address] TYPE CODE TESTS RESULT OUT OF RANGE REFERENCE UNITS LAB 2465-3(LOINC ) IgG SerPl-mCn c 9803 012-5658 mg/dL LAB 2458-8(LOINC ) IgA SerPl-mCn c 302 70-400 mg/dL LAB 2472-9(LOINC ) IgM SerPl-mCn c 89 40-230 mg/dL Performed By: #### SERIMM ## ## [facility] IA [id number] [address] [place] [address] [place] PROTEIN ELECTROPHORESIS SERUM (P) Colle cted: 06/20/2024 1:28 PM Status: F Source: [facility] Comment: Specimen Type : BLOOD SPECIMEN Ordering Facility: [facility] Address: [address] [place] [address] TYPE CODE TESTS RESULT OUT OF RANGE REFERENCE UNITS LAB 2862-1(LOINC) Albumin SerPl Elph-mCnc 4.01 3.43-5.41 g/dL LAB 2865-4(LOINC) Alpha1 Glob SerPl Elph-mCnc 0.33 0.18-0.43 g/dL LAB 2868-8(LOINC) Alpha2 Glob SerPl Elph-mCnc 0.68 0.42-0.98 g/dL LAB 2871-2(LOINC) B-Globulin SerPl Elph-mCnc 0.85 0.61-1.17 g/dL LAB 2874-6(LOINC) Gamma glob SerPl Elph-mCnc 1.02 0.53-1.51 g/dL LAB 39787-8(LOINC) Prot Pattern SerPl Elph-Imp No definitive M protein is identified on protein electrophores is. No definitive M protein is identified on protein electrophores is. LAB LOC M-PROTEIN LOCATION Result Comment: Not Applicab le. LAB 41821-6(LOINC) M Protein SerPl Elph-mCnc 0.00 <=0.00 g/dL LAB SPESTF SPE STAFF REVIEW Reviewed by Yayo Babb M.D. Performed By: #### [id number] # ### [facility] CLIA [id number] [address] [place] [address] [place],FREE,SER Collected: 06/21/19 25 1:28 PM Status: F Source: [facility] Order Comment: Specimen Type : BLOOD SPECIMEN Ordering Facility: [facility] Address: [address] [place] [address] TYPE CODE TESTS RESULT OUT OF RANGE REFERENCE UNITS LAB 41072-6(LOINC) [place] LC Free Ser-mCnc 30.2 High 3.3-19.4 mg/L Result Comment: Rarely, incr eased serum free light chains levels may not be detected or accurately quantified due to prozone phenomenon or in high viscosity samples using this immunoturbidimetric assay. Correlation with other laboratory results and clinical findings is recommended. The [place] Free Light Chain was performed using the Binding Site Optilite immunoturbidimetric method. Result obtained with different assay methods or kits cannot be used interchangeably. LAB 27985-0(LOINC) Lambda LC Free SerPl-mCnc 23.7 5.7-26.3 mg/L [...] or kits cannot be used interchangeably. LAB 59115-7(LOINC) [place] LC/Lambda Ser 1.27 0.26-1.65 Performed By: #### KLFRS ### # [facility] CLIA [id number] [address] [place] [address] [place] FLOW CYTOMETRY FOR LEUKEMIA/LYMPHOMA (FCLL) REFLEX Collected: 06/20/2024 1:28 PM Status: F Source: [facility] Order Comment: Specimen Type : BLOOD SPECIMEN Ordering Facility: [facility] Address: [address] [place] [address] TYPE CODE TESTS RESULT OUT OF RANGE [...] for definitive diagnosis. at 0742 EDT PATHOLOGY [id number] FLOW CYTOMETRY RESULTS Result Comment: Specimen typ [...] TRBC1, most consistent with gamma-delta T cells. [facility] 06/26/2024 PATHOLOGY [id number] GROSS DESCRIPTION A. Blood Result Comment: RECEIVED 8 M LS PERIPHERAL BLOOD (TOTAL) IN TWO EDTA TUBES PATHOLOGY 7423291 DIAGNOSIS COMMENT Result Comment: This test wa s developed and its performance characteristics determined by [facility]'s [facility] [place] ([facility]). It has not been cleared or approved by the FDA. [facility] is regulated under CLIA as qualified to perform high-complexity testing. This test is used for clinical purposes. It should not be regarded as investigational or for research. PATHOLOGY [facility] FINAL PERFORMING LAB Result Comment: Diagnostic i nterpretation performed at [facility], [address] [place] [address] CLIA# [id number] Shipyard Painter Helper: Johnny Brito M.D. Performed By: #### FCLLRFLX #### [facility] CLIA [id number] [address] [place] [address] [place] PROGRESS Observed: 06/20/2024 12:06 PM Status: COMPLETED Source: [facility] HNO ID: [id number] Author: DEAN THEODORE, DO Service: ? Author Type: Physician Type: Progress Notes Filed: 06/20/2024 17:14 Note Text: HPI: The patient is a 68-year-old female with a past medical history significant for atrial fibrillation, bipolar disorder, dementia, depression, hypertension, previous smoker, GERD, right-sided hearing loss, hiatal hernia, high cholesterol, irritable bowel, migraine, CAD (non-ST elevation [place] 01/06/2018), psoriatic arthritis, sleep apnea, osteoporosis, Takotsubo syndrome and type 2 diabetes. Patient was admitted to [facility] on 08/05/2022 following a mechanical fall in [...] by Gallito Crisostomo MD on 08/13/[address]/Chest without Contrast IMPRESSION: Cardiomegaly with pulmonary [...] breath since thoracentesis. She is at the [facility] in skilled care. She was told by [...] that was negative. This was done at [facility]. CT guided bone marrow biopsy of lytic [...] L5; follows with DR. LINDSEY Morbid obesity ([facility]) since quit smoking Osteopenia Osteoporosis Type II [...] Rhythm is regular. 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 No suspicious mass or nodule bilaterally. ABDOMEN: The abdomen is nondistended. No splenomegaly or hepatomegaly. No tenderness. Extremities: No swelling or edema. SKIN: No jaundice or rash. No petechiae. NEUROLOGIC: cnc set up operator II-XII are grossly intact. Resolved right-sided foot drop. MUSCULOSKELETAL: Generalized muscle wasting. LABS: Serum electrophoresis and immunofixation demonstrated no evidence of monoclonal protein by electrophoresis. Immunofixation negative. Test performed at [facility] 08/16/2022. UA x2 while at [facility] on 08/07 and 08/13 were both negative [...] density testing on her in either the [facility] or [facility] system. -I reviewed the bone marrow biopsy [...] see the patient (reviewing electronic record via [facility] system), unxl-al-hpyk patient care, completing clinical documentation, counseling and educating the patient/family/caregiver, ordering medications, tests, or procedures, communicating with other HCPs (not separately reported), and communicating results to the patient/family/caregiver. Dean Theodore DO CNOVSP Observed: 06/20/2024 11:40 AM Status: COMPLETED Source: [facility] Visit (SP) Office (HEMMARCELO) LUBA BENAVIDEZ ([id number]) 1955 F Date Time Provider Department 06/20/24 [...] cholesterol, irritable bowel, migraine, CAD (non-ST elevation [place] 01/06/2018), psoriatic arthritis, sleep apnea, osteoporosis, Takotsubo syndrome and type 2 diabetes. Patient was admitted to [facility] on 08/05/2022 following a mechanical fall in [...] breath since thoracentesis. She is at the [facility] in skilled care. She was told by [...] that was negative. This was done at [facility]. CT guided bone marrow biopsy of lytic [...] L5; follows with DR. LINDSEY Morbid obesity ([facility]) since quit smoking Osteopenia Osteoporosis Type II [...] Rhythm is regular. 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 No suspicious mass or nodule bilaterally. ABDOMEN: The abdomen is nondistended. No splenomegaly or hepatomegaly. No tenderness. Extremities: No swelling or edema. SKIN: No jaundice or rash. No petechiae. NEUROLOGIC: cnc set up operator II-XII are grossly intact. Resolved right-sided foot drop. MUSCULOSKELETAL: Generalized muscle wasting. LABS: Serum electrophoresis and immunofixation demonstrated no evidence of monoclonal protein by electrophoresis. Immunofixation negative. Test performed at [facility] 08/16/2022. UA x2 while at [facility] on 08/07 and 08/13 were both negative [...] density testing on her in either the [facility] or [facility] system. -I reviewed the bone marrow biopsy [...] see the patient (reviewing electronic record via [facility] system), pvzx-uk-gxcp patient care, completing clinical documentation, counseling and [...] [M81.0] Order(s):CONSULT TO ENDOCRINOLOGY [9007] Order #: [id number]: 1 FUTURE MONOCLONAL PROT UR W/INTERP [SQURMPA] Order #: [id number] FUTURE MONOCLONAL PROTEIN, SERUM (BLOOD) [SQSERMPA] Order #: [id number] FUTURE PROTEIN ELECTROPHORESIS SERUM W/INTERP [SQSEPG] Order #: [id number] FUTURE PROTEIN ELECT RND UR W/INTERP [SQUEPG] Order #: [id number] FUTURE IMMUNODEFICIENCY CDC [SQIMMDEF] Order #: [id number] FUTURE FLOW CYTOMETRY FOR LEUKEMIA/LYMPHOMA (FCLL) [EAO0039] Order #: [id number] FUTURE Follow-up and Disposition History for Encounter Date Provider Department Center 06/20/2024 [id number] THEODORE [place] Prescriptions as of 06/20/2024 [...] 06/20/2024 11:12 AM S tatus: Nury Source: [facility] Order Comment: Specimen Type : BLOOD SPECIMEN Ordering Facility: [facility] Address: [address] [place] [address] TYPE CODE TESTS RESULT OUT OF RANGE REFERENCE UNITS LAB 6690-2([facility]) WBC # Bld Auto 7.64 3.70-11.00 k/uL LAB 789-8([facility]) RBC # Bld Auto 4.15 3.90-5.20 m/ uL LAB 718-7([facility]) Hgb Bld-mCnc 12.3 11.5-15.5 g/dL LAB 4544-3([facility]) Hct VFr Bld Auto 38.4 36.0-46.0 % LAB 787-2([facility]) MCV RBC Auto 92.5 80.0-100.0 fL LAB 785-6([facility]) MCH RBC Qn Auto 29.6 26.0-34.0 p g LAB 786-4([facility]) MCHC RBC Auto-mCnc 32.0 30.5-36.0 g/dL LAB 14794-7([facility]) RDW RBC-Rto 13.4 11.5-15.0 % LAB 777-3(INC) Platelet # Bld Auto 271 150-400 k/uL LAB 50846-6([facility]) PMV Bld Auto 9.1 9.0-12.7 fL LAB [...] # Bld Auto <0.03 <0.11 k/uL LAB 49901-4(LOINC) Imm Granulocytes/giovanna k NFr Bld Auto 0.1 % LAB 90397-4(LOINC) Imm Granulocytes # Bld Auto <0.03 <0.10 k/uL LAB 36967-8(LOINC) nRBC/100 WBC Bld-Rto 0.0 /100 WBC LAB 771-6(LOINC) nRBC # Bld Auto <0.01 <0.01 k/u L LAB 31213-1(LOINC) Differential method Bld Auto Performed By: #### 82327-3 # ### [facility] CLIA [id number] [address] [place] [address] CNPN Observed: 05/29/2024 12:00 AM Status: COMPLETED Source: [facility] Telephone (HEMAWS) LUBA BENAVIDEZ ([id number]) 1955 F Date Time Provider Department 05/29/24 DEAN THEODORE During your visit today, we recorded the following information about you: Daksha Tang 05/29/2024 3:05 PM Signed [facility] called stating that patient is back with them at this time. She is asking if patient needed a follow up with Dr. Theodore. Patient was here in 2022. Please call Jeannie at [phone] Katalina You LPN 05/29/2024 3:46 PM Signed [...] AM Addendum PSS- please contact [facility] [phone] to get patient scheduled for an est [...] patient is needing to be seen at [facility], can we just put in referral. [...] M94.9] Routine general medical examination at a [facility]*07/27/2008 08/03/2012 Class: Chronic Routine gynecological examination [...] NAME / CODE REACTION SEVERITY SOURCE 03/05/2009 DRUG/[id number] (SNOMED CT) HYDROCODONE-ACETAMINO PHEN ITCHING [facility] 02/28/2007 DRUG INGREDI/340315 003(SNOMED CT) ATORVASTATIN [facility] 02/26/2007 DRUG INGREDI/203935 003(SNOMED CT) NAPROXEN INTOLERANCE [facility] 04/30/2006 DRUG INGREDI/004755 003(SNOMED CT) CODEINE INTOLERANCE [facility] ENCOUNTERS ADMIT/DISCHARGE ACCOUNT NUMBER ADMITTING ENCOUNTER CLASS LOC ATION SOURCE 08/11/2024/ 5 [id number] Ambulatory [facility] HospitalBuild ing:ENWSTR [facility] 06/20/2024/ 5 [id number] Ambulatory [facility] HospitalBuild ing:WOL2 [facility] 06/20/2024/ 5 [id number] Ambulatory [facility] HospitalBuild ing:WOL2 [facility] 06/20/2024/ 5 [id number] Ambulatory [facility] HospitalBuild ing:WOHE [facility] PAYERS ENCOUNTER GUARANTOR PAYER SUBSCRIBER SOURCE 08/11/2024 Primary Insurance:[facility] DUAL ADVANTAGE O SNPPolicy Number: [id number] Date:0713-97-55Zcst Name:Gifty BRAVOORENOB: [id number] [address] 08/11/2024 Secondary Insurance:[place] MEDICAIDPolicy Number: [id number] Date:0190-94-17Eutv Name:Jean Hernandez OLIVIAOB: [id number] [address] 06/20/2024 Primary Insurance:[facility] DUAL ADVANTAGE O SNPPolicy Number: [id number] Date:[id number] Name:Gifty BRAVOORENOB: [id number] [address] 06/20/2024 Secondary Insurance:[facility] MEDICAIDPolicy Number: [id number] Date:0758-23-33Ohqy Name:Jean BRAVOEDOB: [id number] [address] 06/20/2024 Primary Insurance[facility] SNPPolicy Number: [id number] Date:7442-47-85Ksyg Name:Gifty BRAVOEDOB: [id number] [address] 06/20/2024 Secondary Insurance:[place] MEDICAIDPolicy Number: [id number] Date:1120-82-63Idij Name:Jean BRAVOEDOB: [id number] [address] 06/20/2024 Primary Insurance:[facility] DUAL ADVANTAGE [facility] SNPPolicy Number: [id number] Date:1090-62-20Varq Name:Gifty BRAVOEDOB: [id number] [address] 06/20/2024 Secondary Insurance:[place] MEDICAIDPolicy Number: [id number] Date:5312-26-62Tqja Name:Jean BARVOEDOB: [id number] [id number] [place] [address]
--- NOTE | 2024-11-07 00:48 | RAD_ITS ---
PROCEDURE: CHEST PA AND LATERAL 11/08/2024 REASON FOR EXAM: SOB TECHNIQUE: Procedure Code: RADCXR Modality: DX Procedure: CHEST PA AND LATERAL COMPARISON: Radiograph on 09/01/2024. FINDINGS: Interval appearance of mild bilateral basilar atelectatic pulmonary changes. There is no demonstrated pleural abnormality. Enlarged cardiac silhouette. Normal mediastinum and rayna. Normal visualized pulmonary arteries. Atheromatous plaques of the visualized aortic arch and descending thoracic aorta. Diffuse spondylosis of the visualized thoracic spine. Normal visualized ribs, clavicles. Degenerative joint disease. There is no demonstrated abnormality of the visualized soft tissue structures of the upper abdomen. RAD/Chest PA and Lateral IMPRESSION: Interval appearance of mild bilateral basilar atelectatic pulmonary changes. Reading Location[facility]
[2024-11-07 22:09] VITALS: BP 183/97; PULSE 122; RESP 20; TEMP 36.9; O2SAT 100
[2024-11-07 22:12] VITALS: BP 183/97; PULSE 124; RESP 20; TEMP 36.9; O2SAT 100
--- NOTE | 2024-11-07 22:22 | EKG12_ITS ---
Test Reason : N/V Blood Pressure : */* mmHG Vent. Rate : 114 BPM Atrial Rate : 114 BPM P-R Int : 156 ms QRS Dur : 90 ms QT Int : 364 ms P-R-T Axes : 60 -31 68 degrees QTcB Int : 501 ms Sinus tachycardia Left axis deviation Anterior infarct (cited on or before 01-Sep-2024) Prolonged QT Abnormal ECG Confirmed by DOMITILA DOW ([id number]), makeup editor CAIT VIDES ([id number]) on 11/10/2024 9:05:16 AM Referred By: Confirmed By: DOMITILA DOW
[2024-11-07] MEDS: 0.9% Normal Saline (1000mL) 1,000 ML 1000 ML IV (22:40)
[2024-11-07 22:54] LABS: Mucous, Urine 0 SEEN /hpf (<or=2+)
[2024-11-07 22:57] LABS: Hematocrit 50.4 % (37-47); Hemoglobin 16.5 g/dL (12.0-15.0); Immature Granulocytes Count 0.040 X10^3/uL (0.0-0.0); Mean Corp Hgb Conc 32.7 g/dL (32-36); Mean Corpuscular Volume 86.7 fL (81-99); Mean Platelet Vol. 9.7 fl (6.2-12.0); NRBC Flagged by Analyzer 0 % (0-5); Platelet Count 400 K/mm3 (150-450); RBC Distribution Width CV 13.2 % (11.6-14.6); RBC Distribution Width SD 42.1 fl (35.1-43.9); Red Blood Count 5.81 M/mm3 (4.2-5.4); White Blood Count 10.7 K/mm3 (4.4-11.0)
[2024-11-07 23:00] VITALS: BP 180/89; PULSE 102; RESP 20; TEMP 36.9; O2SAT 100
[2024-11-07 23:08] LABS: Glucose, Dipstick 250 mg/dl (Normal); Ketone-Dipstick 50 mg/dl (Negative); Leukocyte Esterase-Dipstick Negative /ul (Negative); Nitrite-Dipstick Negative (Negative); Occult Blood-Urine 25 /ul (Negative); Protein-Dipstick 100 mg/dl (Negative); Specific Gravity, Urine 1.015 (1.002-1.030); Urine Bilirubin Dipstick Negative (Negative)
[2024-11-07 23:12] LABS: Color, Urine Straw (Yellow)
[2024-11-07 23:17] LABS: Lipase 14 U/L (13-75); Troponin T High Sensitivity 13 ng/L (<=14)
[2024-11-07 23:18] LABS: Ammonia 20.7 umol/L (11-51)
[2024-11-07 23:19] LABS: AST(SGOT) 34 U/L (<=31); Alanine Aminotransfer ALT/SGPT 14 U/L (<=34); Albumin, Serum 4.8 g/dL (3.4-4.8); Alkaline Phosphatase 126 U/L (35-104); Anion Gap 26 (5-15); BUN 13 mg/dL (4-19); BUN/Creat Ratio 15.4 RATIO (10-20); Calcium,Total 10.0 mg/dL (7.6-11.0); Carbon Dioxide 14.7 mmol/L (21.0-32.0); Chloride 98 mmol/L (98-108); Globulin 3.2 g/dL (2.2-4.2); Glucose 283 mg/dL (70-99); Potassium 4.3 mmol/L (3.3-5.1)
[2024-11-07 23:35] LABS: Red Blood Cells-Urine 0-5 SEEN /hpf (0-5); Squamous Epithelial Cells - UA 0-5 SEEN /hpf (5-10)
[2024-11-08] VITALS (34 sets, daily range): BP systolic 104–216; BP diastolic 59–117; PULSE 75–145; RESP 12–93; TEMP 36.9–38.2; O2SAT 92–100; BMI 22.8; BMI 23.5
--- NOTE | 2024-11-08 | CT_ITS ---
PROCEDURE: SPINE CERVICAL WITHOUT CONTRAS 11/08/2024 REASON FOR EXAM: FALL TECHNIQUE: Procedure Code: CTSPC Modality: CT Procedure: SPINE CERVICAL WITHOUT CONTRAS Coronal and Sagittal reconstruction series were provided. One or more dose reduction techniques were used (e.g., Automated exposure control, adjustment of the mA and/or kV according to patient size, use of iterative reconstruction technique. RADIATION DOSE SUMMARY: CTDI Vol 32.56 mGy DLP :745.4 mGycm COMPARISON: 20-Apr-2024 FINDINGS: Straightened cervical curve denoting myospasm. C2 and C3 bony fusion. Stable relative reduced C3 vertebral body height showing mothed osseous texture and mild posterior cortical bulge The examined vertebral bodies show no structural collapse or posterior neural elements fractures. Intact atlanto-axial interval. Degenerative changes of the atlanto-odontoid articulation with related capsular calcifications. Cervical spondylodegenerative changes evident by marginal osteophytic lipping and multilevel subchondral sclerosis of the examined vertebral end plates with multilevel disc spaces narrowing. Multilevel degenerative unco-vertebral arthropathy with osteophytes formation seen encroaching upon the corresponding neural exit foramina. Multilevel degenerative facet arthropathy. Multilevel diffuse disc bulges with posterior osteophytes and annular calcifications indenting the theca and encroaching upon the related neural exit foramina. No paraspinal masses. Carotid atheromatous calcifications. CT/Spine Cervical without Contras IMPRESSION: Stable study findings. No newly developed acute vertebral fractures, structural collapse or dislocatio n. Reading Location: [facility]
--- NOTE | 2024-11-08 | CT_ITS ---
PROCEDURE: ABDOMEN/PELVIS W IV CONT ONLY 11/08/2024 REASON FOR EXAM: ABD PAIN./N/V TECHNIQUE: Procedure Code: [id number] Modality: CT Procedure: ABDOMEN/PELVIS W IV CONT ONLY Coronal and Sagittal reconstruction series were provided. CONTRAST: OMNIPAQUE 350 VOLUME: 100 mL One or more dose reduction techniques were used (e.g., Automated exposure control, adjustment of the mA and/or kV according to patient size, use of iterative reconstruction technique. RADIATION DOSE SUMMARY: CTDlvol: 16.5 mGy DLP: 630 mGycm COMPARISON: CT scan on 09/01/2024. FINDINGS: Mild bilateral basilar atelectatic pulmonary changes. Unremarkable metallic prosthesis of the hips. Chronic deformities of the pubic bones. Chronic compression deformities of the vertebral bodies, unchanged. Moderate osteopenia. Uncomplicated colonic diverticulosis. Gastroparesis/gastritis. Bilateral scattered simple renal cysts with the largest measuring 3.5 cm. Normal liver. Normal gallbladder and extrahepatic biliary system. Normal spleen. Normal pancreas. Normal bilateral adrenal glands. Normal size of the right kidney. There is no right renal mass. There are no right renal calculi. There is no right hydronephrosis. Normal visualized right ureter. Normal size of the left kidney. There is no left renal mass. There are no left renal calculi. There is no left hydronephrosis. Normal visualized left ureter Normal small intestine. The appendix is not visualized. There is no demonstrated peritoneal fluid. Calcified atheromatous plaques of the abdominal aorta. Normal inferior vena cava. Normal retroperitoneum. Normal urinary bladder. There is no pelvic mass lesion or lymphadenopathy. There is no pelvic fluid. CT/Abdomen/Pelvis W IV Cont ONLY IMPRESSION: Mild bilateral basilar atelectatic pulmonary changes. Unremarkable metallic prosthesis of the hips. Chronic deformities of the pubic bones. Chronic compression deformities of the vertebral bodies, unchanged. Moderate osteopenia. Uncomplicated colonic diverticulosis. Gastroparesis/gastritis. Bilateral scattered simple renal cysts with the largest measuring 3.5 cm. Reading Location: [place] [id number]
--- NOTE | 2024-11-08 | CT_ITS ---
PROCEDURE: BRAIN/HEAD WITHOUT CONTRAST 11/08/2024 REASON FOR EXAM: FALL TECHNIQUE: Procedure Code: CTBR Modality: CT Procedure: BRAIN/HEAD WITHOUT CONTRAST Coronal and Sagittal reconstruction series were provided. One or more dose reduction techniques were used (e.g., Automated exposure control, adjustment of the mA and/or kV according to patient size, use of iterative reconstruction technique. RADIATION DOSE SUMMARY: CTDlvol: 65 mGy DLP: 1778 mGycm FINDINGS: Accentuated bilateral cerebral periventricular deep white matter hypodensities suggesting hypoperfusion. Garcia-white matter differentiation is maintained. Bilateral basal ganglia fine calcifications (physiological). Normal CT appearance of the posterior fossa structures. No intracerebral or extra axial hemorrhage. No definite calvarial fractures. Prominent ventricular system, cortical sulci and extra-axial CSF spaces No midline shifts or deformity. The osseous structures in the skull base are unremarkable. Small calcific densities related to the calvarial bones inner table. The scanned paranasal sinuses are unremarkable. Vascular atheromatous calcifications. CT/Brain/Head without Contrast IMPRESSION: No intracerebral or extra axial hemorrhage. No acute cerebrovascular insult. If clinical symptoms persist, further evaluati on with MRI may be considered as clinically warranted. Bilateral cerebral microvascular ischemic changes with brain involutional mohan es. stable. Reading Location: [facility]
--- NOTE | 2024-11-08 00:18 | EDS_ITS ---
HPI History of Present Illness Chief Complaint: Nausea/Vomiting Narrative Narrative: Patient is a 69-year-old female presenting to the emergency department for abdominal pain, nausea and vomiting for 2 days. Patient is a very poor historian. She has a past medical history of diabetes, hypertension, NSTEMI, encephalopathy, opioid dependence, pancreatitis, UTI, CKD. Patient reports that 2 days ago she had a fall. She is unable to tell me specifics about why she fell. She is on chronic anticoagulation with Eliquis. [facility] Medical History Chronic anticoagulation Paroxysmal atrial fibrillation Erythrocytosis Transaminitis Hypercalcemia Frequent falls Acute cystitis without hematuria Septic encephalopathy Closed L3 vertebral fracture Acute UTI DURAN (acute kidney injury) Sepsis High anion gap metabolic acidosis Acute kidney injury Candidal intertrigo Acute UTI Recurrent falls Acute delirium Altered level of consciousness Acute encephalopathy Myocardial infarction type 2 Non-ST elevation TN (NSTEMI) Hiatal hernia Irritable bowel Back pain due to injury Restless legs Injury of head and neck High cholesterol Hearing loss, right Bipolar disorder Depression Anxiety GERD (gastroesophageal reflux disease) Former smoker Sleep apnea Atrial fibrillation Migraines Dementia Closed intertrochanteric fracture of left hip Psoriatic arthritis Nonobstructive atherosclerosis of coronary artery Obesity Type 2 diabetes mellitus Takotsubo syndrome Hyperlipidemia Essential (primary) hypertension NSTEMI (non-ST elevated myocardial infarction) (01/06/18) Home Medications ?Medication ?Instructions ?Recorded ?Last Taken ?Type apixaban 2.5 mg tablet (Eliquis) 2.5 mg PO BID blood t hinner 02/14/24 Unknown History ergocalciferol (vitamin D2) 1,250 1,250 mcg PO SA raghav min 04/20/24 05/10/24 History mcg (50,000 unit) capsule (Vitamin D2) fexofenadine 180 mg tablet 180 mg PO DAILY allergies 0 04/20/24 Unknown History glipizide 10 mg tablet 10 mg PO DAILY diabetes 11/06 Unknown History atorvastatin 20 mg tablet 20 mg PO QHS cholesterol #0 tabs 04/24/24 05/12/24 Rx carvedilol 3.125 mg tablet 3.125 mg PO BIDCM blood pre ssure 04/24/24 05/13/24 Rx #0 tabs fluoxetine 40 mg capsule 40 mg PO BID #0 caps 5 Unknown Rx gabapentin 100 mg capsule 100 mg PO TID nerve pain #0 caps 04/24/24 Unknown Rx pantoprazole 40 mg tablet,delayed 40 mg PO BID reflux #0 tabs 04/24/24 Unknown Rx release tolterodine 4 mg capsule,extended 4 mg PO DAILY #0 cap s 04/24/24 Unknown Rx release 24 hr acetaminophen 325 mg tablet 650 mg PO Q4H PRN Fever, p ain 05/13/24 05/12/24 History -11/21 buspirone 15 mg tablet 15 mg PO BID mental health 0 05/13/24 Unknown History donepezil 10 mg tablet 10 mg PO DAILY memory Unknown History mirabegron 50 mg tablet,extended 50 mg PO DAILY bladde r 05/13/24 Unknown History release 24 hr Remove Patch 2 patch topical DAILY@2200 # #0 05/16/24 Unknown Rx aluminum-mag hydroxide-simethicone 30 ml PO Q6H PRN SC N Gastric 05/16/24 Unknown Rx 400 mg-400 mg-40 mg/5 mL oral susp Burning #0 mL (Mag-Al Plus Extra Strength) amlodipine 10 mg tablet 10 mg PO DAILY #60 tabs 06/06 Unknown Rx hydroxyzine pamoate 25 mg capsule 25 mg PO TID PRN PRN severe 05/16/24 Unknown Rx anxiety #0 caps insulin lispro 100 unit/mL See Protocol subcut ACHS #0 mL 05/16/24 Unknown Rx subcutaneous pen (Humalog KwikPen (U-100) Insulin) lidocaine 5 % topical patch 2 patch topical DAILY #0 e a 05/16/24 Unknown Rx melatonin 3 mg tablet 3 mg PO QHS PRN PRN Insomnia #0 05/16/24 Unknown Rx tabs potassium chloride 20 mEq 20 meq PO BIDCM #0 tabs 06/06 Unknown Rx tablet,extended release(part/cryst) sennosides 8.6 mg-docusate sodium 2 tab PO BID PRN PRN Constipation 05/16/24 Unknown Rx 50 mg tablet (Stimulant Laxative #0 tabs Plus) tizanidine 2 mg tablet 2 mg PO Q8H PRN PRN muscle 0 05/16/24 Unknown Rx spasms/strain #0 tabs nitrofurantoin 1 cap PO Q12.TCU 05/19/24 Un known History monohydrate/macrocrystals 100 mg capsule oxybutynin chloride 15 mg PO 05/19/24 Unknown History tablet,extended release 24 hr tramadol 50 mg tablet 50 mg PO Q6H PRN pain 3 days #12 05/19/24 Unknown Rx tabs sulfamethoxazole 800 1 tab PO BID #2 tabs 09/05/ 5 Unknown Rx mg-trimethoprim 160 mg tablet (Bactrim DS) Allergy/AdvReac Type Severity Reaction Status Date / Time morphine Allergy Severe Other Verified 11/07/24 22:07 codeine Allergy Itching Verified 11/07/24 22:07 fentanyl AdvReac confusion Verified 11/07/24 22:07 naproxen AdvReac Other Verified 11/07/24 22:07 Family History Mother Cancer skin Father Cancer prostate Surgical History History of back surgery History of carpal tunnel release of both wrists History of hysterectomy History of left heart catheterization (01/07/18) Social History household members: spouse Smoking Status: Former smoker how long ago did patient quit smokin years ago alcohol intake: never substance use type: does not use caffeine: Yes Type: carbonated beverages Number of servings: 1 ROS ROS ED ROS Narrative See HPI EXAM Physical Exam Narrative Exam Narrative: Vital signs: Reviewed General: Alert and oriented x 3. No acute distress. Chronically ill-appearing HEENT: Head is normocephalic and atraumatic. No lacerations, abrasions or cephalhematoma to the head or face. There is left-sided periorbital ecchymosis. Appears to be subacute. No significant periorbital swelling. No conjunctival hemorrhage or conjunctival injection. Extraocular movements intact. Sinuses nontender, pupils equal round and reactive. Nares are patent. No septal hematoma. Oropharynx and throat exams normal. No oropharyngeal trauma. Neck: Supple without lymphadenopathy nontender. No midline cervical spinal tenderness to palpation. No step-offs or deformities. Cardiovascular: Regular rate and rhythm, no murmurs. No rubs or gallops. Normal S1 and S2 Respiratory: Clear to auscultation bilaterally. No wheezes, rales, rhonchi Chest: Chest wall is atraumatic and nontender to palpation. No ecchymosis, erythema or crepitus of the chest wall. Abdominal: Soft and tenderness palpation in the epigastric region. Otherwise abdomen is nontender to palpation. normal bowel sounds. No guarding or rebound. Nonsurgical abdomen Extremities: No tenderness. No bruising. Normal range of motion. Normal sensation. Skin: No rash or redness. Neurological: Cranial nerves II through XII are grossly intact. Normal strength and sensation. Normal cerebellar function The rest of the physical exam is unremarkable Const Vital Signs: 11/07/24 22:09 11/07/24 22:12 11/07/24 22:54 Temperature 98.5 F 98.5 F Temperature Source Oral Oral Pulse Rate 122 H 124 H Respiratory Rate 20 H 20 H Respiratory Effort Short of Breath Labored Respiratory Pattern Tachypnea Blood Pressure 183/97 H 183/97 H Blood Pressure Mean 125 125 Pulse Ox 100 100 Oxygen Delivery Method Room Air Room Air 11/07/24 23:00 11/08/24 00:00 11/08/24 01:00 Temperature 98.5 F 98.5 F 98.9 F Temperature Source Oral Oral Oral Pulse Rate 102 H 96 115 H Respiratory Rate 20 H 18 20 H Respiratory Effort Respiratory Pattern Blood Pressure 180/89 H 179/79 H 171/97 H Blood Pressure Mean 119 112 121 Pulse Ox 100 93 100 Oxygen Delivery Method Room Air Room Air Room Air MDM MDM MDM Narrative Medical decision making narrative: Patient is a 69-year-old female presenting to the emergency department for abdominal pain, nausea and vomiting for the past 2 days. Patient was seen and examined. Vitals are stable. She is tachycardic on initial evaluation in the 120s to 130s. Mildly hypertensive at 183/97. Mildly tachypneic at 20. She is afebrile saturating 100% on room air. Differential includes but is not limited to: Pancreatitis, cholecystitis, colitis, UTI, gastroenteritis, DKA, sepsis Patient given fluids and Zofran for symptomatic control. CBC with no leukocytosis and hemoglobin is 16.5. CMP with bicarb of 14.7 and anion gap of 26, glucose of 283. DKA protocol started. Ketones and VBG added on. Lipase within normal limits. Ammonia within normal limits. EKG shows sinus tachycardia with left axis deviation. No dysrhythmia. There appears to be some ST depression in V4 through V6. No ST elevation. Initial troponin of 13. Urinalysis with glucose and ketones consistent with her DKA. No evidence of UTI. CT brain with no acute findings. CT cervical spine with no acute findings. CT abdomen pelvis with some mild bilateral bibasilar atelectatic pulmonary changes. Uncomplicated colonic diverticulosis, gastroparesis/gastritis. No acute findings. Clinical impression: DKA Nausea vomiting Abdominal pain History & Record Review Discussion w/independent historian: Patient Additional record(s) reviewed:: Prior labs Lab Data Attestation: I reviewed the patient's lab results. Labs: Laboratory Results - last 24 hr 11/07/24 11/07/24 11/07/24 22:35 22:40 23:39 WBC 10.7 RBC 5.81 H Hgb 16.5 H Hct 50.4 H MCV 86.7 MCH 28.4 MCHC 32.7 RDW Std Deviation 42.1 RDW Coeff of Gerhard 13.2 Plt Count 400 MPV 9.7 Immature Gran % (Auto) 0.400 Neut % (Auto) 90.1 H Lymph % (Auto) 7.3 L Robertson % (Auto) 1.9 Eos % (Auto) 0.1 Baso % (Auto) 0.2 Absolute Neuts (auto) 9.6 H Absolute Lymphs (auto) 0.78 L Nucleated RBC % 0 Sodium 139 Potassium 4.3 Chloride 98 Carbon Dioxide 14.7 L Anion Gap 26 H BUN 13 Creatinine 0.87 Est GFR (MDRD) Non-Af 71 BUN/Creatinine Ratio 15.4 Glucose 283 H Lactic Acid Cancelled 1.2 Calcium 10.0 Magnesium 2.2 Total Bilirubin 1.20 AST 34 H ALT 14 Alkaline Phosphatase 126 H Ammonia 20.7 Troponin T High Sens 13 D Total Protein 8.0 Albumin 4.8 Globulin 3.2 Albumin/Globulin Ratio 1.5 Lipase 14 b-Hydroxybutyric mmol/L 3.1 H Urine Color Straw Urine Clarity Clear Urine pH 6.0 Ur Specific [place] 1.015 Urine Protein 100 H Urine Glucose (UA) 250 H Urine Ketones 50 H Urine Occult Blood 25 H Urine Nitrite Negative Urine Bilirubin Negative Urine Urobilinogen Normal Ur Leukocyte Esterase Negative Urine RBC 0-5 SEEN Urine WBC 0-5 SEEN Ur Squamous Epith Cells 0-5 SEEN Urine Bacteria 0 SEEN Urine Mucus 0 SEEN ABG Data ABG results: ABG 11/08/24 01:33 Specimen Type RADHA Sample Site Not entered VBG pH 7.65 H* VBG pO2 61 H VBG HCO3 16 L VBG Total CO2 16 L VBG O2 Sat (Calc) 96 H VBG Base Excess -5 L POC Mix VBG pCO2 Pt Tmp 14.6 L* O2 Delivery Device Room Air Crit Call To/Read Back Yes Blood Gas Notified Whom Ilsa Blood Gas Notified Time 01:34:49 Radiography Diagnostic Testing: Clinical Impression(s) from Imaging Studies Abdomen/Pelvis CT 11/08/24 00:00 IMPRESSION: Mild bilateral basilar atelectatic pulmonary changes. Unremarkable metallic prosthesis of the hips. Chronic deformities of the pubic bones. Chronic compression deformities of the vertebral bodies, unchanged. Moderate osteopenia. Uncomplicated colonic diverticulosis. Gastroparesis/gastritis. Bilateral scattered simple renal cysts with the largest measuring 3.5 cm. [facility] Brain CT 11/08/24 00:00 IMPRESSION: No intracerebral or extra axial hemorrhage. No acute cerebrovascular insult. If clinical symptoms persist, further evaluation with MRI may be considered as clinically warranted. Bilateral cerebral microvascular ischemic changes with brain involutional changes. stable. Reading [facility] Cervical Spine CT 11/08/24 00:00 IMPRESSION: Stable study findings. No newly developed acute vertebral fractures, structural collapse or dislocation. Reading [facility] Discharge Plan Triage Chief Complaint: Nausea/Vomiting ED Provider: Corinne Villalobos Dx/Rx/DC Orders Prescriptions: No Action Eliquis 2.5 mg tablet 2.5 mg PO BID glipizide 10 mg tablet 10 mg PO DAILY fexofenadine 180 mg tablet 180 mg PO DAILY ergocalciferol (vitamin D2) [Vitamin D2] 1,250 mcg (50,000 unit) capsule 1,250 mcg PO SA Rx Instructions: TAKES EVERY WEEK ON SUNDAY AT BEDTIME fluoxetine 40 mg Capsule 40 mg PO BID Qty: 0 0RF carvedilol 3.125 mg Tablet 3.125 mg PO BIDCM Qty: 0 0RF atorvastatin 20 mg Tablet 20 mg PO QHS Qty: 0 0RF tolterodine 4 mg Capsule,Extended Release 24hr 4 mg PO DAILY Qty: 0 0RF pantoprazole 40 mg Tablet,Delayed Release (Dr/Ec) 40 mg PO BID Qty: 0 0RF gabapentin 100 mg Capsule 100 mg PO TID Qty: 0 0RF donepezil 10 mg tablet 10 mg PO DAILY buspirone 15 mg tablet 15 mg PO BID mirabegron 50 mg tablet extended release 24 hr 50 mg PO DAILY acetaminophen 325 mg Tablet 650 mg PO Q4H PRN (Reason: Fever, pain -11/21) lidocaine 5 % Adhesive Patch,Medicated 2 patch topical DAILY Qty: 0 0RF Protocol: *Topical Application Instructions APPLICATION INSTRUCTIONS: back, s/p fall insulin lispro [Humalog KwikPen Insulin] 100 unit/mL Insulin Pen See Protocol subcut ACHS Qty: 0 0RF Protocol: 3. Sliding Scale Insulin Med Dosing Condition: 150-189 mg/dl = 1 unit Condition: 190-229 mg/dl = 2 units Condition: 230-269 mg/dl = 3 units Condition: 270-309 mg/dl = 4 units Condition: 310-349 mg/dl = 5 units Condition: 350-399 mg/dl = 6 units Condition: 400-449 mg/dl = 7 units Condition: Greater than 449 call physician Protocol Text: - Use for Total Daily Dose of Insulin 37-55 units - Obsese, infected, or steroid patients MEDIUM DOSING ALGORITHIM tizanidine 2 mg Tablet 2 mg PO Q8H PRN PRN (Reason: muscle spasms/strain) Qty: 0 0RF sennosides-docusate sodium [Stimulant Laxative Plus] 8.6-50 mg Tablet 2 tab PO BID PRN PRN (Reason: Constipation) Qty: 0 0RF melatonin 3 mg Tablet 3 mg PO QHS PRN PRN (Reason: Insomnia) Qty: 0 0RF potassium chloride 20 mEq Tablet,Er Particles/Crystals 20 meq PO BIDCM Qty: 0 0RF alum-mag hydroxide-simeth [Mag-Al Plus Extra Strength] 400-400-40 mg/5 mL Suspension 30 ml PO Q6H PRN PRN (Reason: Gastric Burning) Qty: 0 0RF hydroxyzine pamoate 25 mg Capsule 25 mg PO TID PRN PRN (Reason: severe anxiety) Qty: 0 0RF Remove Patch 2 patch topical DAILY@2200 Qty: 0 0RF amlodipine 10 mg tablet 10 mg PO DAILY Qty: 60 0RF oxybutynin chloride 15 mg tablet extended release 24hr PO nitrofurantoin monohyd/m-cryst 100 mg capsule 1 cap PO Q12.TCU tramadol 50 mg tablet 50 mg PO Q6H PRN (Reason: pain) 3 Days Qty: 12 0RF sulfamethoxazole-trimethoprim [Bactrim DS] 800-160 mg tablet 1 tab PO BID Qty: 2 0RF Primary Care Provider: Rupal Boyer Referrals: Rupal Boyer, [employer] [facility] [Primary Care Provider, Family Practice] Print Language: Swedish
[2024-11-08 01:12] LABS: BETA-HYDROXYBUTYRATE 3.1 mmol/L (0.0-0.3)
--- NOTE | 2024-11-08 01:15 | PCM.HP.STD ---
[facility] - General General Date of Admission: 11/08/24 Date of Service: 11/08/24 Chief Complaint: Abdominal Pain and AMS. [facility] Narrative LUBA BENAVIDEZ, is a 69 F with a past medical history of essential hypertension; on amlodipine and carvedilol twice daily, hyperlipidemia; on atorvastatin, former tobacco abuse, CAD; s/p non-STEMI (2017), paroxysmal atrial fibrillation; on apixaban, history of Takotsubo cardiomyopathy, history of renal artery stenosis, history of psoriatic arthritis, DM-2; of unknown control on glipizide plus sliding scale insulin TID AC, diabetic neuropathy; on gabapentin 3 times daily, BURKE; on CPAP, bipolar disorder; on fluoxetine BID, buspirone plus as needed hydroxyzine 3 times daily as needed, chronic dementia; on donepezil, OAB; on mirabegron, oxybutynin and tolterodine, seasonal allergies; on fexofenadine, RLS, history of muscle spasms; on tizanidine 3 times daily as needed, GERD; with hiatal hernia and history of PUD (12/2023), and OA; with history of Left hip fracture, history of back surgery and recurrent falls with recent fall with intractable back pain on May 17, 2024 causing patient to be admitted here; on tramadol every 6 hours with most recent admission here from September 01, 2024 to September 05, 2024 for treatment of acute cystitis with fever, severe leukocytosis of 23.7 K and lactic acidosis of 2.2 mmol/L consistent with suspected sepsis with septic encephalopathy and newly diagnosed L3 compression fracture at that time who now re-presents to [facility] ER complaining of abdominal pain and altered mental status. Mrs. Benavidez is not a fully reliable historian at this time as information gathered from chart, medical staff and computer. According to the records the patient has had abdominal pain, nausea and vomiting for 2 days. The patient's reported to the ER staff that she fell 2 days ago but patient cannot elaborate on any details surrounding the fall. She also is not aware if she is taking her insulin or not. Her apparently thought she had a UTI so we sent her in for further evaluation and treatment. In the ER she was noted to have Hyperglycemia of 283 mg deciliter with a corresponding elevated beta hydroxybutyric acid of 3.1 mmol/L with an anion gap of 26 present on admission consistent with DKA complicated by clinical evidence of Acute Metabolic Encephalopathy compounded by elevated blood pressure of 183/97 mmHg present on admission consistent with suspected Hypertensive Urgency and she was then admitted to the ICU for ongoing care for stated is expected to extend beyond 2 midnights. [facility] Medical History (Updated 11/08/24 @ 02:[address] Coy Noel, DO) Chronic anticoagulation Paroxysmal atrial fibrillation Erythrocytosis Transaminitis Hypercalcemia Frequent falls Acute cystitis without hematuria Septic encephalopathy Closed L3 vertebral fracture Acute UTI DURAN (acute kidney injury) Sepsis High anion gap metabolic acidosis Acute kidney injury Candidal intertrigo Acute UTI Recurrent falls Acute delirium Altered level of consciousness Acute encephalopathy Myocardial infarction type 2 Non-ST elevation CA (NSTEMI) Hiatal hernia Irritable bowel Back pain due to injury Restless legs Injury of head and neck High cholesterol Hearing loss, right Bipolar disorder Depression Anxiety GERD (gastroesophageal reflux disease) Former smoker Sleep apnea Atrial fibrillation Migraines Dementia Closed intertrochanteric fracture of left hip Psoriatic arthritis Nonobstructive atherosclerosis of coronary artery Obesity Type 2 diabetes mellitus Takotsubo syndrome Hyperlipidemia Essential (primary) hypertension NSTEMI (non-ST elevated myocardial infarction) (01/06/18) Home Medications ?Medication ?Instructions ?Recorded ?Last Taken ?Type apixaban 2.5 mg tablet (Eliquis) 2.5 mg PO BID blood thinner 02/14/24 Unknown History ergocalciferol (vitamin D2) 1,250 1,250 mcg PO SA vitamin 04/20/24 05/10/24 History mcg (50,000 unit) capsule (Vitamin D2) fexofenadine 180 mg tablet 180 mg PO DAILY allergies 04/20/24 Unknown History glipizide 10 mg tablet 10 mg PO DAILY diabetes 04/20/24 Unknown History atorvastatin 20 mg tablet 20 mg PO QHS cholesterol #0 tabs 04/24/24 05/12/24 Rx carvedilol 3.125 mg tablet 3.125 mg PO BIDCM blood pressure 04/24/24 05/13/24 Rx #0 tabs fluoxetine 40 mg capsule 40 mg PO BID #0 caps 04/24/24 Unknown Rx gabapentin 100 mg capsule 100 mg PO TID nerve pain #0 caps 04/24/24 Unknown Rx pantoprazole 40 mg tablet,delayed 40 mg PO BID reflux #0 tabs 04/24/24 Unknown Rx release tolterodine 4 mg capsule,extended 4 mg PO DAILY #0 caps 04/24/24 Unknown Rx release 24 hr acetaminophen 325 mg tablet 650 mg PO Q4H PRN Fever, pain 05/13/24 05/12/24 History 1-11/21 buspirone 15 mg tablet 15 mg PO BID mental health 05/13/24 Unknown History donepezil 10 mg tablet 10 mg PO DAILY memory 05/13/24 Unknown History mirabegron 50 mg tablet,extended 50 mg PO DAILY bladder 05/13/24 Unknown History release 24 hr Remove Patch 2 patch topical DAILY@2200 ##0 05/16/24 Unknown Rx aluminum-mag hydroxide-simethicone 30 ml PO Q6H PRN PRN Gastric 05/16/24 Unknown Rx 400 mg-400 mg-40 mg/5 mL oral susp Burning #0 mL (Mag-Al Plus Extra Strength) amlodipine 10 mg tablet 10 mg PO DAILY #60 tabs 05/16/24 Unknown Rx hydroxyzine pamoate 25 mg capsule 25 mg PO TID PRN PRN severe 05/16/24 Unknown Rx anxiety #0 caps insulin lispro 100 unit/mL See Protocol subcut ACHS #0 mL 05/16/24 Unknown Rx subcutaneous pen (Humalog KwikPen (U-100) Insulin) lidocaine 5 % topical patch 2 patch topical DAILY #0 ea 05/16/24 Unknown Rx melatonin 3 mg tablet 3 mg PO QHS PRN PRN Insomnia #0 05/16/24 Unknown Rx tabs potassium chloride 20 mEq 20 meq PO BIDCM #0 tabs 05/16/24 Unknown Rx tablet,extended release(part/cryst) sennosides 8.6 mg-docusate sodium 2 tab PO BID PRN PRN Constipation 05/16/24 Unknown Rx 50 mg tablet (Stimulant Laxative #0 tabs Plus) tizanidine 2 mg tablet 2 mg PO Q8H PRN PRN muscle 05/16/24 Unknown Rx spasms/strain #0 tabs nitrofurantoin 1 cap PO Q12.TCU 05/19/24 Unknown History monohydrate/macrocrystals 100 mg capsule oxybutynin chloride 15 mg PO 05/19/24 Unknown History tablet,extended release 24 hr tramadol 50 mg tablet 50 mg PO Q6H PRN pain 3 days #12 05/19/24 Unknown Rx tabs sulfamethoxazole 800 1 tab PO BID #2 tabs 09/05/24 Unknown Rx mg-trimethoprim 160 mg tablet (Bactrim DS) Allergy/AdvReac Type Severity Reaction Status Date / Time morphine Allergy Severe Other Verified 11/07/24 22:07 codeine Allergy Itching Verified 11/07/24 22:07 fentanyl AdvReac confusion Verified 11/07/24 22:07 naproxen AdvReac Other Verified 11/07/24 22:07 Family History Mother Cancer skin Father Cancer prostate Surgical History History of back surgery History of carpal tunnel release of both wrists History of hysterectomy History of left heart catheterization (01/07/18) Social History household members: spouse Smoking Status: Former smoker how long ago did patient quit smokin years ago alcohol intake: never substance use type: does not use caffeine: Yes Type: carbonated beverages Number of servings: 1 ROS ROS Narrative Full review of systems was not possible due to patient's confusion. Vital Signs Vital Signs Vital Signs: 11/07/24 22:09 11/07/24 22:12 11/07/24 22:54 Temperature 98.5 F 98.5 F Temperature Source Oral Oral Pulse Rate 122 H 124 H Respiratory Rate 20 H 20 H Respiratory Effort Short of Breath Labored Respiratory Pattern Tachypnea Blood Pressure 183/97 H 183/97 H Blood Pressure Mean 125 125 Pulse Ox 100 100 Oxygen Delivery Method Room Air Room Air 11/07/24 23:00 11/08/24 00:00 Temperature 98.5 F 98.5 F Temperature Source Oral Oral Pulse Rate 102 H 96 Respiratory Rate 20 H 18 Respiratory Effort Respiratory Pattern Blood Pressure 180/89 H 179/79 H Blood Pressure Mean 119 112 Pulse Ox 100 93 Oxygen Delivery Method Room Air Room Air Physical Exam Const alert Constitutional Narrative: Mild distress noted with patient markedly confused and chronically ill in appearance. General Appearance: cooperative Orientation / Consciousness: confused HEENT normocephalic, head/scalp atraumatic and hearing grossly normal bilaterally HEENT Narrative: Left periorbital ecchymoses with mucous membranes dry. Eyes PERRL, EOMs intact bilaterally and conjunctivae normal Neck no lymphadenopathy, supple and no JVD Resp normal respiratory effort, no retractions, no use of accessory muscles and clear to auscultation bilaterally Cardio regular rate and regular rhythm GI GI Narrative: Patient has mild tenderness to palpation of the epigastric region without distention, guarding or rebound. Extremity normal to inspection, full ROM and no clubbing, cyanosis or edema Skin Skin Narrative: Patient is evidence of rash, abscess, wounds or jaundice. Neuro CN's II-XII intact bilaterally and moves all extremities Neuro Narrative: Patient is confused and could only partially answer questions at this time. Sensorium / Orientation: awake, alert, oriented to person and oriented to place Speech: speech normal Psych affect normal Results Medical Records Data Attestation: I reviewed the patient's medical records Lab / Micro Data Attestation: I reviewed the patient's lab results. 11/07/24 22:40 11/07/24 22:40 Labs: Laboratory Results - last 24 hr 11/07/24 22:35: Urine Color Straw, Urine Clarity Clear, Urine pH 6.0, Ur Specific Sherwood 1.015, Urine Protein 100 H, Urine Glucose (UA) 250 H, Urine Ketones 50 H, Urine Occult Blood 25 H, Urine Nitrite Negative, Urine Bilirubin Negative, Urine Urobilinogen Normal, Ur Leukocyte Esterase Negative, Urine RBC 0-5 SEEN, Urine WBC 0-5 SEEN, Ur Squamous Epith Cells 0-5 SEEN, Urine Bacteria 0 SEEN, Urine Mucus 0 SEEN 11/07/24 22:40: WBC 10.7, RBC 5.81 H, Hgb 16.5 H, Hct 50.4 H, MCV 86.7, MCH 28.4, MCHC 32.7, RDW Std Deviation 42.1, RDW Coeff of Gerhard 13.2, Plt Count 400, MPV 9.7, Immature Gran % (Auto) 0.400, Neut % (Auto) 90.1 H, Lymph % (Auto) 7.3 L, Mccormick % (Auto) 1.9, Eos % (Auto) 0.1, Baso % (Auto) 0.2, Absolute Neuts (auto) 9.6 H, Absolute Lymphs (auto) 0.78 L, Nucleated RBC % 0, Sodium 139, Potassium 4.3, Chloride 98, Carbon Dioxide 14.7 L, Anion Gap 26 H, BUN 13, Creatinine 0.87, Est GFR (MDRD) Non-Af 71, BUN/Creatinine Ratio 15.4, Glucose 283 H, Lactic Acid Cancelled, Calcium 10.0, Total Bilirubin 1.20, AST 34 H, ALT 14, Alkaline Phosphatase 126 H, Ammonia 20.7, Troponin T High Sens 13 D, Total Protein 8.0, Albumin 4.8, Globulin 3.2, Albumin/Globulin Ratio 1.5, Lipase 14, b-Hydroxybutyric mmol/L 3.1 H 11/07/24 23:39: Lactic Acid 1.2 Imaging [facility] Imaging Services [address], [place] [id number] Brain/Head without Contrast MR#: [id number] Acct: [id number] Name: LUBA BENAVIDEZ Rep #: [id number] : 1955 F 69 From: Carri Bettencourt MD PCP: ORESTES Cano Status: REG ER Study: Brain/Head without Contrast Date of Exam: 11/08/24 Exam# [id number] Ordering Dr: Corinne Villalobos MD PROCEDURE: BRAIN/HEAD WITHOUT CONTRAST 11/08/2024 REASON FOR EXAM: FALL TECHNIQUE: Procedure Code: CTBR Modality: CT Procedure: BRAIN/HEAD WITHOUT CONTRAST Coronal and Sagittal reconstruction series were provided. One or more dose reduction techniques were used (e.g., Automated exposure control, adjustment of the mA and/or kV according to patient size, use of iterative reconstruction technique. RADIATION DOSE SUMMARY: CTDlvol: 65 mGy DLP: 1778 mGycm FINDINGS: Accentuated bilateral cerebral periventricular deep white matter hypodensities suggesting hypoperfusion. Garcia-white matter differentiation is maintained. Bilateral basal ganglia fine calcifications (physiological). Normal CT appearance of the posterior fossa structures. No intracerebral or extra axial hemorrhage. No definite calvarial fractures. Prominent ventricular system, cortical sulci and extra-axial CSF spaces No midline shifts or deformity. The osseous structures in the skull base are unremarkable. Small calcific densities related to the calvarial bones inner table. The scanned paranasal sinuses are unremarkable. Vascular atheromatous calcifications. CT/Brain/Head without Contrast IMPRESSION: No intracerebral or extra axial hemorrhage. No acute cerebrovascular insult. If clinical symptoms persist, further evaluation with MRI may be considered as clinically warranted. Bilateral cerebral microvascular ischemic changes with brain involutional changes. stable. Reading [facility] CC: CIGAR MAKING MACHINE OPERATORJarad Boyer; Dr. Corinne Villalobos MD ~ Railroad Operator: Signed [facility] Imaging Services [address] [place] [id number] Spine Cervical without Contras MR#: [id number] Acct: [id number] Name: LUBA BENAVIDEZ Rep #: [id number] : 1955 F 69 From: Carri Bettencourt MD PCP: ORESTES Cano Status: REG ER Study: Spine Cervical without Contras Date of Exam: 11/08/24 Exam# [id number] Ordering Dr: Corinne Villalobos MD PROCEDURE: SPINE CERVICAL WITHOUT CONTRAS 11/08/2024 REASON FOR EXAM: FALL TECHNIQUE: Procedure Code: CTSPC Modality: CT Procedure: SPINE CERVICAL WITHOUT CONTRAS Coronal and Sagittal reconstruction series were provided. One or more dose reduction techniques were used (e.g., Automated exposure control, adjustment of the mA and/or kV according to patient size, use of iterative reconstruction technique. RADIATION DOSE SUMMARY: CTDI Vol 32.56 mGy DLP :745.4 mGycm COMPARISON: 20-Apr-2024 FINDINGS: Straightened cervical curve denoting myospasm. C2 and C3 bony fusion. Stable relative reduced C3 vertebral body height showing mothed osseous texture and mild posterior cortical bulge The examined vertebral bodies show no structural collapse or posterior neural elements fractures. Intact atlanto-axial interval. Degenerative changes of the atlanto-odontoid articulation with related capsular calcifications. Cervical spondylodegenerative changes evident by marginal osteophytic lipping and multilevel subchondral sclerosis of the examined vertebral end plates with multilevel disc spaces narrowing. Multilevel degenerative unco-vertebral arthropathy with osteophytes formation seen encroaching upon the corresponding neural exit foramina. Multilevel degenerative facet arthropathy. Multilevel diffuse disc bulges with posterior osteophytes and annular calcifications indenting the theca and encroaching upon the related neural exit foramina. No paraspinal masses. Carotid atheromatous calcifications. CT/Spine Cervical without Contras IMPRESSION: Stable study findings. No newly developed acute vertebral fractures, structural collapse or dislocation. Reading Location: [facility] CC: ORESTES Boyer; Dr. Corinne Villalobos MD ~ Railroad Operator: Signed [facility] Imaging Services [address] [place] [id number] Abdomen/Pelvis W IV Cont ONLY MR#: [id number] Acct: [id number] Name: LUBA BENAVIDEZ Rep #: [id number] : 1955 F 69 From: Carri Bettencourt MD PCP: Rupal Boyer CIGAR MAKING MACHINE OPERATOR-C Status: REG ER Study: Abdomen/Pelvis W IV Cont ONLY Date of Exam: 11/08/24 Exam# [id number] Ordering Dr: Corinne Villalobos MD PROCEDURE: ABDOMEN/PELVIS W IV CONT ONLY 11/08/2024 REASON FOR EXAM: ABD PAIN./N/V TECHNIQUE: Procedure Code: [id number] Modality: CT Procedure: ABDOMEN/PELVIS W IV CONT ONLY Coronal and Sagittal reconstruction series were provided. CONTRAST: OMNIPAQUE 350 VOLUME: 100 mL One or more dose reduction techniques were used (e.g., Automated exposure control, adjustment of the mA and/or kV according to patient size, use of iterative reconstruction technique. RADIATION DOSE SUMMARY: CTDlvol: 16.5 mGy DLP: 630 mGycm COMPARISON: CT scan on 09/01/2024. FINDINGS: Mild bilateral basilar atelectatic pulmonary changes. Unremarkable metallic prosthesis of the hips. Chronic deformities of the pubic bones. Chronic compression deformities of the vertebral bodies, unchanged. Moderate osteopenia. Uncomplicated colonic diverticulosis. Gastroparesis/gastritis. Bilateral scattered simple renal cysts with the largest measuring 3.5 cm. Normal liver. Normal gallbladder and extrahepatic biliary system. Normal spleen. Normal pancreas. Normal bilateral adrenal glands. Normal size of the right kidney. There is no right renal mass. There are no right renal calculi. There is no right hydronephrosis. Normal visualized right ureter. Normal size of the left kidney. There is no left renal mass. There are no left renal calculi. There is no left hydronephrosis. Normal visualized left ureter Normal small intestine. The appendix is not visualized. There is no demonstrated peritoneal fluid. Calcified atheromatous plaques of the abdominal aorta. Normal inferior vena cava. Normal retroperitoneum. Normal urinary bladder. There is no pelvic mass lesion or lymphadenopathy. There is no pelvic fluid. CT/Abdomen/Pelvis W IV Cont ONLY IMPRESSION: Mild bilateral basilar atelectatic pulmonary changes. Unremarkable metallic prosthesis of the hips. Chronic deformities of the pubic bones. Chronic compression deformities of the vertebral bodies, unchanged. Moderate osteopenia. Uncomplicated colonic diverticulosis. Gastroparesis/gastritis. Bilateral scattered simple renal cysts with the largest measuring 3.5 cm. Reading Location: [place] [address] CC: CIGAR MAKING MACHINE OPERATORJarad Boyer; Dr. Corinne Villalobos MD ~ Railroad Operator: Signed Assessment & Plan Assessment/Plan (1) DKA (diabetic ketoacidoses): QUALIFIERS: Diabetes mellitus complication detail: without coma Diabetes mellitus type: type 2 Qualified Code(s): E11.10 - Type 2 diabetes mellitus with ketoacidosis without coma (2) Hypertensive urgency: (3) Acute metabolic encephalopathy: (4) Chronic dementia: (5) Paroxysmal atrial fibrillation: (6) Chronic anticoagulation: (7) Bipolar disease, chronic: PLAN: Plan 1. Hyperglycemia of 283 mg deciliter with a corresponding elevated beta hydroxybutyric acid of 3.1 mmol/L with an anion gap of 26 present on admission consistent with DKA in the setting of previously known DM-2; of unknown control on glipizide plus sliding scale insulin TID AC - Admit to ICU. Continue IV insulin drip begun in ER. Give vigorous volume resuscitation and recheck BMP q.4 hours as per DKA protocol. Keep strict NPO. 2. Hypertensive Urgency with elevated blood pressure of 183/97 mmHg complicating # 1 - Give hydralazine IV prn for systolic blood pressure of > 160 mmHg. 3. Acute Metabolic Encephalopathy likely due primarily to #1 in the setting of known Chronic Dementia - Check TSH, B12, Folate, MICHELLE and UDS. Otherwise minimize SAP PORTAL DEVELOPER-active medications and monitor for improvement. Restart donepezil when able. 4. Recent admission here from September 01, 2024 to September 05, 2024 for treatment of acute cystitis with fever, severe leukocytosis of 23.7 K and lactic acidosis of 2.2 mmol/L consistent with suspected sepsis with septic encephalopathy and newly diagnosed L3 compression fracture at that time with Frequent Falls - Noted with patient's likely struggling to take care of her at home with patient also not getting her insulin and blood pressure medications as prescribed resulting in #1 - #3. 5. Paroxysmal atrial fibrillation; on apixaban adding to the medical complexity of #1 - #4 - Hold apixaban while NPO and replace with full-dose enoxaparin. 6. Bipolar disorder; on fluoxetine BID, buspirone plus as needed hydroxyzine 3 times daily as needed - Hold home regimen for now. 7. Hyperlipidemia; on atorvastatin - Restart statin when patient resumes oral intake. 8. Former tobacco abuse - Noted. 9. CAD; s/p non-STEMI (2018) - Noted. 10. History of Takotsubo cardiomyopathy - Noted. 11. History of renal artery stenosis - Noted. 12. History of psoriatic arthritis - Stable with no evidence of acute flare. 13. Diabetic neuropathy; on gabapentin 3 times daily - Restart gabapentin when patient can tolerate oral intake. 14. BURKE; on CPAP - Nocturnal CPAP ordered. 15. OAB; on mirabegron, oxybutynin and tolterodine - Restart when able. 16. Seasonal allergies; on fexofenadine - Hold this for now. 17. RLS - Stable. 18. History of muscle spasms; on tizanidine 3 times daily as needed - Restart when able. 19. GERD; with hiatal hernia and history of PUD (12/2023) - Continue PPI IV. 20. OA; with history of Left hip fracture, history of back surgery and recurrent falls with recent fall with intractable back pain on May 17, 2024 causing patient to be admitted here; on tramadol every 6 hours - Hold all oral medications and minimize opiates as much as possible in an effort to allow sensorium to clear. 21. DVT prophylaxis - Patient on full-dose enoxaparin as outlined in #5. Total time: Approximately (but not less than) 75 minutes. Update: Patient has a stroke alert called last night due to worsening confusion with patient evaluated by [facility] telneurology who though her symptoms were metabolic in origin and likely related to withdrawal from pain medications and rebound hypertension. Also her follow-up head CT without contrast revealed bilateral cerebral microvascular ischemic changes with brain involutional changes that are stable. She was then treated with buprenorphine sublingual in addition to labetalol 10 mg IV once with BIOPSYCHOLOGIST updated with plan. Charges/Coding Visit Charges Inpatient E&M: 72389 Init Hosp L3
[2024-11-08 01:17] LABS: Magnesium 2.2 mg/dL (1.5-2.2)
[2024-11-08 01:37] LABS: SITE Not entered; Time Given 01:34:49; VBG BASE EXCESS -5 mmol/L (-1.0-3.5); VBG PO2 61 mmHg (25-40); VBG SO2 96 % (50-70); VBG TCO2 16 mmol/L (23-33)
[2024-11-08] MEDS: Insulin Lispro 100 UNIT in 0.9% Normal Saline (100mL Bag) 99 ML CONT INF (02:02)
[2024-11-08] MEDS: Potassium Chloride 10mEq/100mL 10 MEQ/100 ML IV.SOLN. 100 MEQ IV BOLUS ×2 (02:03→03:16)
[2024-11-08 02:20] LABS: Base Excess -5 mmol/L (-2 to +2); PO2 96 mmHG (75-100); SITE R Radial; SO2 99 % (95-99); Time Given 02:17:22
[2024-11-08 02:27] LABS: Troponin T High Sens 2 HR 14 ng/L (<=14)
[2024-11-08] MEDS: Dext 5%-0.45% NS 1,000 ML 150 ML IV ×2 (03:35→09:53)
--- NOTE | 2024-11-08 04:27 | CT_ITS ---
PROCEDURE: STROKE BRAIN/HEAD WITHOUT CONT 11/08/2024 REASON FOR EXAM: STROKE ALERT TECHNIQUE: Procedure Code: CTBR.ST Modality: CT Procedure: STROKE BRAIN/HEAD WITHOUT CONT Coronal and Sagittal reconstruction series were provided. One or more dose reduction techniques were used (e.g., Automated exposure control, adjustment of the mA and/or kV according to patient size, use of iterative reconstruction technique. RADIATION DOSE SUMMARY: CTDlvol: 65 mGy DLP: 1778 mGycm COMPARISON: 08-Nov-2024 FINDINGS: Accentuated bilateral cerebral periventricular deep white matter hypodensities suggesting hypoperfusion. Garcia-white matter differentiation is maintained. Bilateral basal ganglia fine calcifications (physiological). Normal CT appearance of the posterior fossa structures. No intracerebral or extra axial hemorrhage. No definite calvarial fractures. Prominent ventricular system, cortical sulci and extra-axial CSF spaces No midline shifts or deformity. The osseous structures in the skull base are unremarkable. Small calcific densities related to the calvarial bones inner table. The scanned paranasal sinuses are unremarkable. Vascular atheromatous calcifications. CT/STROKE Brain/Head without Cont IMPRESSION: No intracerebral or extra axial hemorrhage. No acute cerebrovascular insult. If clinical symptoms persist, further evaluati on with MRI may be considered as clinically warranted. Bilateral cerebral microvascular ischemic changes with brain involutional mohan es. stable. Reading Location[facility] [address]
[2024-11-08 04:28] LABS: Alcohol, Blood (Medical)-Serum < 10.1 mg/dL (<=10.0)
[2024-11-08 04:42] LABS: Barbiturate Urine NEGATIVE (< 200 ng/mL); Benzodiazepine Urine NEGATIVE (< 200 ng/mL); PCP Urine NEGATIVE (< 25 ng/mL); THC Urine PRESUMPTIVE POSITIVE (< 50 ng/mL)
[2024-11-08 04:43] LABS: Anion Gap 21 (5-15); Carbon Dioxide 15.7 mmol/L (21.0-32.0); Chloride 102 mmol/L (98-108); Potassium 3.4 mmol/L (3.3-5.1); Vitamin B12 1127 pg/mL (180-914)
[2024-11-08 05:05] LABS: Troponin T High Sens 4 HR 17 ng/L (<=14)
[2024-11-08 05:06] LABS: Anion Gap 22 (5-15); Carbon Dioxide 15.5 mmol/L (21.0-32.0); Chloride 102 mmol/L (98-108); Magnesium 1.8 mg/dL (1.5-2.2); Potassium 3.4 mmol/L (3.3-5.1)
[2024-11-08 05:37] LABS: Cholesterol 157 mg/dL (<=200); Low Density Lipoprotein Calc. 77 mg/dL; Triglycerides 86 mg/dL; Very Low Density Lipoprotein 17 mg/dL (5-40); cholesterol:hdl ratio screen 2.50
[2024-11-08] MEDS: 0.9% Saline Lock 10 ML Syringe IV (05:48)
[2024-11-08 07:52] LABS: BETA-HYDROXYBUTYRATE 3.6 mmol/L (0.0-0.3)
[2024-11-08] MEDS: Pantoprazole Sodium 40 MG in 0.9% Normal Saline (100mL MB+) 100 ML 330 MG IV (09:42)
[2024-11-08] MEDS: Lidocaine 5% Patch 2 PATCH TOPICAL (09:45)
[2024-11-08 10:25] LABS: Anion Gap 14 (5-15); BUN 16 mg/dL (4-19); BUN/Creat Ratio 14.9 RATIO (10-20); Calcium,Total 9.4 mg/dL (7.6-11.0); Carbon Dioxide 21.7 mmol/L (21.0-32.0); Chloride 107 mmol/L (98-108); Estimated Creatinine Clearance 42.44 ml/min (50-250); Glucose 179 mg/dL (70-99); Magnesium 1.9 mg/dL (1.5-2.2); Potassium 2.9 mmol/L (3.3-5.1)
[2024-11-08] MEDS: Potassium Chloride Oral Tablet 20 MEQ 40 MEQ PO (13:13)
[2024-11-08 14:25] LABS: Anion Gap 15 (5-15); Carbon Dioxide 21.0 mmol/L (21.0-32.0); Chloride 105 mmol/L (98-108); Magnesium 2.1 mg/dL (1.5-2.2); Potassium 3.2 mmol/L (3.3-5.1)
[2024-11-08] MEDS: Insulin Glargine-YFGN 100 UNIT/ML Pen 10 UNIT SC (15:36)
--- NOTE | 2024-11-08 16:28 | CASEMGMT ---
Social Work- MRI not completed at this time. SW follow for PHQ9. CARMEN Owens
--- NOTE | 2024-11-08 19:10 | CASEMGMT ---
RN?CM?LABORATORY ASSOCIATE?CM?to room to meet with patient for initial transition planning/care coordination?assessment.?RN?CM?introduced self and role at [facility].? Pt voices understanding and consents to?assessment?at this time.? Pt resting in bed in no distress at this time.? Pt is A/O at this time to name, place, month, and year. She also was able to state her PCP, address, and insurance correctly, however, pt unable to state who she lives with (initially stated she lived w/her and son, Mikal), what pharmacy she uses, or if she sees any specialists. Pt gave HAMILTON COSTA permission to call her daughter, Pam, to complete initial assessment. Call placed to Pam at this time. The following information obtained. PCP: Rupal Boyer (Pam verified) Specialists: Pt not able to recall this info. Pam states pt is supposed to be seeing some specialists, but she states she is not sure who or why. Pam states appts have been made in the past for patient, patient states she goes, but then later states she didn't go, and at times states it is because she couldn't find it. Preferred Pharmacy: [facility] ([facility] is listed in [facility]. Pam states thinks this is where pt goes. Insurance: [employer] Dual, [employer] Prescription Benefit:?Yes LNOK: , Eduardo. Daughter, Pam Living Arrangements: Pt initially told HAMILTON COSTA she lives w/her and son, Mikal. Per Pam, pt only lives w/her , stating Mikal moved out about 8 months ago. Pt and live in a mobile home w/ramp entrance. Per SW note in 08/2024, Pam reports pt is a hoarder. However, she did not mention this to HAMILTON COSTA at this time. Pam states she has not been to pt's home for awhile, stating pt has called her bossy and so she (Pam) has backed off. She states pt is somewhat independent w/ADL's, however she states pt does not take care of herself and pt's states pt does not bathe. Pam reports pt and her sometimes go grocery shopping together and they often go to the [employer]. She states pt's diet often consists of things like Little Brenda snacks and lots of pop. She also reports pt is not compliant w/medications. Pam states both pt and her have lost their cell phones. Passport: Pt has CM, Radha Smith. Call placed to Radha and [facility] ye notifying her of pt's admission to [facility]. Transportation:?Pt states her does most of the driving. Pam confirms this, but states pt does still drive some, stating pt just drove to her dad's house this past week. DME: ?Carlos states pt has the following DME:?walker, rollator, W/C, medical alert. She thinks she also has a tub bench/shower chair. She states pt has a glucometer, but she does not check her BS's and she does not know if she has supplies for it either. HHC/SNF: Pt has been to [facility] and [facility] in the past. Assisted Living: Pam states they were hoping [facility] would open up to waiver pt's in the past. However, she states she does not think that both pt and her would both be able to go and that pt would not be agreeable to going unless her could go w/her. Per Pam, if SNF is needed @ discharge, the only place pt has been agreeable to in the past is [facility], stating pt has friends there. Noted HHC set up with [facility] in August,, pt's last admission. Pam is not sure [facility] ended up seeing pt in August. Pam states [facility] has been set up for pt in the past, on more than one occasion. She states, though, pt will either not answer when they call her or she will decline services. Noted 6 clicks 12. Order placed for PT/OT. RN CM spoke again after getting off of the phone w/Pam. Pt did state to this HAMILTON COSTA, if SNF is needed @ discharge, she would be amenable to this and would like to go to [facility]. CM?to follow for discharge planning. PLAN:??TBD. PT/OT evals pending. Ti BSN?RN?CM
[2024-11-09] VITALS (14 sets, daily range): BP systolic 119–162; BP diastolic 47–82; PULSE 86–119; RESP 13–21; TEMP 36.9–37.4; O2SAT 93–100; BMI 25.0
[2024-11-09 03:23] LABS: Hematocrit 39.0 % (37-47); Hemoglobin 12.6 g/dL (12.0-15.0); Immature Granulocytes Count 0.070 X10^3/uL (0.0-0.0); Mean Corp Hgb Conc 32.3 g/dL (32-36); Mean Corpuscular Volume 88.6 fL (81-99); Mean Platelet Vol. 9.0 fl (6.2-12.0); NRBC Flagged by Analyzer 0 % (0-5); Platelet Count 358 K/mm3 (150-450); RBC Distribution Width CV 14.0 % (11.6-14.6); RBC Distribution Width SD 45.3 fl (35.1-43.9); Red Blood Count 4.40 M/mm3 (4.2-5.4); White Blood Count 15.4 K/mm3 (4.4-11.0)
[2024-11-09 03:58] LABS: Anion Gap 14 (5-15); BUN 27 mg/dL (4-19); BUN/Creat Ratio 23.2 RATIO (10-20); Calcium,Total 9.2 mg/dL (7.6-11.0); Carbon Dioxide 20.6 mmol/L (21.0-32.0); Chloride 106 mmol/L (98-108); Estimated Creatinine Clearance 37.76 ml/min (50-250); Glucose 182 mg/dL (70-99); Potassium 3.8 mmol/L (3.3-5.1)
[2024-11-09] MEDS: 0.9% Normal Saline (1000mL) 1,000 ML 75 ML IV ×2 (09:30→22:41)
--- NOTE | 2024-11-09 09:47 | PN.HOSP_ITS ---
Subjective Subjective Doing well, no issues overnight. Still confused Objective Data Objective Data Vital Signs: Vital Signs Temp Pulse Resp BP Pulse Ox O2 Del Method 99 F 119 H 21 H 126/80 H 93 Room Air 11/09/24 05:00 11/09/24 07:00 11/09/24 07:00 11/09/24 07:00 11/09/24 07:00 11/09/24 07:00 Oxygen Delivery Method Room Air Weight: 146 lb 11.2 oz Body Mass Index (BMI) 25.0 Intake & Output: Intake and Output for Last 24 Hours 11/08/24 11/09/24 11/10/24 03:59 03:59 03:59 Intake Total 1102.2 / 1104.81 2187.83 / 2187.83 Output Total 1475 / 1475 200 / 200 Balance 1102.2 / 1104.81 712.83 / 712.83 -200 / -200 Lab / Micro Data 11/09/24 03:15 11/09/24 03:15 Labs: Laboratory Results - last 24 hr 11/08/24 09:50: Sodium 142, Potassium 2.9 L, Chloride 107, Carbon Dioxide 21.7, Anion Gap 14, BUN 16, Creatinine 1.05, Estim Creat Clear Calc 42.44 L, Est GFR (MDRD) Non-Af 57 L, BUN/Creatinine Ratio 14.9, Glucose 179 H, Calcium 9.4, Phosphorus 3.2, Magnesium 1.9 11/08/24 10:52: POC Glucose 87 11/08/24 12:04: POC Glucose 67 L 11/08/24 13:08: POC Glucose 115 H 11/08/24 13:52: POC Glucose 248 H 11/08/24 13:55: Sodium 141, Potassium 3.2 L, Chloride 105, Carbon Dioxide 21.0, Anion Gap 15, Phosphorus 4.0, Magnesium 2.1 11/08/24 16:03: POC Glucose 140 H 11/08/24 21:38: POC Glucose 170 H 11/09/24 03:15: WBC 15.4 H, RBC 4.40, Hgb 12.6, Hct 39.0, MCV 88.6, MCH 28.6, MCHC 32.3, RDW Std Deviation 45.3 H, RDW Coeff of Gerhard 14.0, Plt Count 358, MPV 9.0, Immature Gran % (Auto) 0.500, Neut % (Auto) 73.4 H, Lymph % (Auto) 17.9 L, [place] % (Auto) 7.3, Eos % (Auto) 0.8, Baso % (Auto) 0.1, Absolute Neuts (auto) 11.3 H, Absolute Lymphs (auto) 2.76, Nucleated RBC % 0, Sodium 140, Potassium 3.8, Chloride 106, Carbon Dioxide 20.6 L, Anion Gap 14, BUN 27 H, Creatinine 1.18, Estim Creat Clear Calc 37.76 L, Est GFR (MDRD) Non-Af 49 L, BUN/Creatinine Ratio 23.2 H, Glucose 182 H, Calcium 9.2 Micro: Microbiology 11/08/24 03:15 Mucosa - Nasopharyngeal Respiratory Panel (PCR) - Final Physical Exam Narrative General: Alert, disoriented, Cooperative, No apparent distress HEENT: Atraumatic, PERRLA, EOMI, Normocephalic, ecchymosis over her left eye Oral: Moist Mucosa Neck: Supple, No JVD Lungs: Diminished, Normal air movement, No rhonchi, No wheeze, No rales Cardiovascular: Regular rate, Regular Rhythm, Normal S1, Normal S2, No murmurs Abdomen: Soft, Non Tender, Non-Distended, No Hepato-splenomegaly Extremities: No edema, Capillary Refill Less than 3 Seconds Skin: No rashes, No breakdown Musculoskeletal: No Tenderness to Palpation of Joints or Extremities Neurological: No focal neurological deficits, Motor Exam 5/5 strength throughout, Sensory exam intact to light touch and pain Psych/Mental Status: Normal Affect, Appropriate disoriented Assessment & Plan Assessment/Plan (1) DKA (diabetic ketoacidoses): QUALIFIERS: Diabetes mellitus type: type 2 Diabetes mellitus complication detail: without coma Qualified Code(s): E11.10 - Type 2 diabetes mellitus with ketoacidosis without coma (2) Hypertensive urgency: (3) Acute metabolic encephalopathy: PLAN: Plan 1. DKA in the setting of type 2 diabetes ? Her gap's are closed x 2 ? Transition to subcu insulin and can transfer out of the ICU 2. Hypertensive urgency/HLD/paroxysmal A-fib ? Continue with statin ? Continue with Eliquis ? Will monitor make adjustments as necessary ? Can resume her home medications 3. Acute metabolic encephalopathy in the setting of dementia ? Her altered mental status is likely related to her DKA and that she does have chronic dementia ? There was a concern for possible stroke, NIH of 1 4. Recent admission here from September 01, 2024 to September 05, 2024 for treatment of acute cystitis with fever, severe leukocytosis of 23.7 K and lactic acidosis of 2.2 mmol/L consistent with suspected sepsis with septic encephalopathy and newly diagnosed L3 compression fracture at that time with [place] - Noted with patient's likely struggling to take care of her at home with patient also not getting her insulin and blood pressure medications as prescribed resulting in #1 - #3. 5. Paroxysmal atrial fibrillation; on apixaban adding to the medical complexity of #1 - #4 - Hold apixaban while NPO and replace with full-dose enoxaparin. 6. Bipolar disorder; on fluoxetine BID, buspirone plus as needed hydroxyzine 3 times daily as needed - Hold home regimen for now. 7. Hyperlipidemia; on atorvastatin - Restart statin when patient resumes oral intake. 8. Former tobacco abuse - Noted. 9. CAD; s/p non-STEMI (2018) - Noted. 10. History of Takotsubo cardiomyopathy - Noted. 11. History of renal artery stenosis - Noted. 12. History of psoriatic arthritis - Stable with no evidence of acute flare. 13. Diabetic neuropathy; on gabapentin 3 times daily - Restart gabapentin when patient can tolerate oral intake. 14. BURKE; on CPAP - Nocturnal CPAP ordered. 15. OAB; on mirabegron, oxybutynin and tolterodine - Restart when able. 16. Seasonal allergies; on fexofenadine - Hold this for now. 17. RLS - Stable. 18. History of muscle spasms; on tizanidine 3 times daily as needed - Restart when able. 19. GERD; with hiatal hernia and history of PUD (12/2023) - Continue PPI IV. 20. OA; with history of Left hip fracture, history of back surgery and recurrent falls with recent fall with intractable back pain on May 17, 2024 causing patient to be admitted here; on tramadol every 6 hours - Hold all oral medications and minimize opiates as much as possible in an effort to allow sensorium to clear. 21. DVT prophylaxis - Patient on full-dose enoxaparin as outlined in #5. Total time: Approximately (but not less than) 75 minutes. Update: Patient has a stroke alert called last night due to worsening confusion with patient evaluated by [facility] telneurology who though her symptoms were metabolic in origin and likely related to withdrawal from pain medications and rebound hypertension. Also her follow-up head CT without contrast revealed bilateral cerebral microvascular ischemic changes with brain involutional changes that are stable. She was then treated with buprenorphine sublingual in addition to labetalol 10 mg IV once with [facility] updated with plan.
[2024-11-09] MEDS: Insulin Glargine-YFGN 100 UNIT/ML Pen 10 UNIT SC (09:49)
[2024-11-09] MEDS: 0.9% Saline Lock 10 ML Syringe IV (09:49)
[2024-11-09] MEDS: APIXABAN 5 MG TABLET PO (10:56)
[2024-11-09] MEDS: Glucerna Shake 120 ML LIQUID PO ×3 (10:57→17:24)
[2024-11-10 06:00] VITALS: BMI 23.7
[2024-11-10 06:10] LABS: Hematocrit 35.0 % (37-47); Hemoglobin 11.7 g/dL (12.0-15.0); Immature Granulocytes Count 0.030 X10^3/uL (0.0-0.0); Mean Corp Hgb Conc 33.4 g/dL (32-36); Mean Corpuscular Volume 87.3 fL (81-99); Mean Platelet Vol. 9.2 fl (6.2-12.0); NRBC Flagged by Analyzer 0 % (0-5); Platelet Count 292 K/mm3 (150-450); RBC Distribution Width CV 14.0 % (11.6-14.6); RBC Distribution Width SD 45.6 fl (35.1-43.9); Red Blood Count 4.01 M/mm3 (4.2-5.4); White Blood Count 11.7 K/mm3 (4.4-11.0)
[2024-11-10 06:52] VITALS: BP 143/83; PULSE 81; RESP 15; TEMP 36.8; O2SAT 96
[2024-11-10 06:53] LABS: Anion Gap 11 (5-15); BUN 27 mg/dL (4-19); BUN/Creat Ratio 32.6 RATIO (10-20); Calcium,Total 8.9 mg/dL (7.6-11.0); Carbon Dioxide 20.3 mmol/L (21.0-32.0); Chloride 110 mmol/L (98-108); Estimated Creatinine Clearance 54.34 ml/min (50-250); Glucose 135 mg/dL (70-99); Potassium 3.7 mmol/L (3.3-5.1)
--- NOTE | 2024-11-10 09:04 | NURSING ---
Pt refusing her morning medications, this RN will try again in a couple hours. Will notify
[2024-11-10 09:09] VITALS: BP 146/83; PULSE 88; RESP 16; TEMP 36.4; O2SAT 98
--- NOTE | 2024-11-10 10:03 | CASEMGMT ---
Addendum entered by Kathya Portillo 11/10/24 15:10: RN CM into pt room, pt lying in bed with dtr at bedside. Pt more talkative now then this morning. Pt dtr state this is not pt normal. Pt and dtr aware hospitalist made RN CM aware that she does not have a UTI. Discussed dc planning with pt and dtr. Pt stated she wanted to go to [facility] but then stated that she could go home. Pt aware that RN CM will check in in the morning to see how she is doing and what her plan will be. Filled up pt water pitcher. Pt dtr and pt deny further needs at this time. Addendum entered by Kathya Portillo 11/10/24 12:21: RN CM into pt room, pt sitting up in chair with nurse dressing pt heel, pt did not speak but one word answers and looked away. RN CM stated to pt that RN CM spoke with Radha today, pt face and eyes lit up. Made aware that she thought pt may need short term rehab and that pt has stated in the past that she wanted [facility]. Pt shook her head. Pt agreeable to her family being called to discuss dc planning. TC to pt , left message on 's phone. TC to pt dtr Pam, she states that pt phone has been lost so pt could not be reached and that she lives 25 min from them. She states pt would be agreeable to [facility] if needed. She asks if pt is on an antibiotic for UTI as this is how pt presents when she has a UTI. She states that she has disengaged from her mother's care as her mother does not listen to her. She states her mother doesn't want to drink. She states she does not want to go to [facility] because her cannot go d/t them having assets that need sold off. Pam states she will come in today to see her mother and she wants her mother to make the decision to go to [facility] or not. She is aware to ask for the RN CM when she comes in. Updated hospitalist regarding question of UTI. RN CM to follow. Original Note: Noted therapy evals from weekend. TC to Radha Smith, Rex Burnham CM as there was a message to call her. Discussed portions of progress notes with her. She questions if pt has UTI as she states this is what usually happens (speaking of her change in mental status) when pt has a UTI. She also states pt is not on insulin at home. She states pt may have been prescribed this when she went from the hospital to SNF in May but was not dc'd home with it after the SNF. She states she visited pt last week and discussed the waiver for [facility] and pt was not interested. She states typically when pt is hospitalized, she needs skilled therapy prior to going home and would need this even prior to [facility] if pt is wanting this at this time. Message sent to hospitalist on info provided regarding UTI and insulin.
--- NOTE | 2024-11-10 10:04 | PCM.PN.HOSP ---
Subjective Subjective Remains unchanged from yesterday Objective Data Objective Data Vital Signs: Vital Signs Temp Pulse Resp BP Pulse Ox O2 Del Method 97.6 F L 88 16 146/83 H 98 Room Air 11/10/24 09:09 11/10/24 09:09 11/10/24 09:09 11/10/24 09:09 11/10/24 09:09 11/10/24 09:09 Oxygen Delivery Method Room Air Weight: 138 lb 14.259 oz Body Mass Index (BMI) 23.7 Intake & Output: Intake and Output for Last 24 Hours 11/09/24 11/10/24 11/11/24 03:59 03:59 03:59 Intake Total 2187.83 / 2187.83 1348.75 / 1348.75 20 / 20 Output Total 1475 / 1475 725 / 725 200 / 200 Balance 712.83 / 712.83 623.75 / 623.75 -180 / -180 Lab / Micro Data 11/10/24 05:49 11/10/24 05:49 Labs: Laboratory Results - last 24 hr 11/08/24 09:50: POC Glucose 153 H 11/09/24 09:30: POC Glucose 161 H 11/09/24 11:26: POC Glucose 169 H 11/09/24 17:20: POC Glucose 119 H 11/09/24 22:27: POC Glucose 158 H 11/10/24 05:49: WBC 11.7 H, RBC 4.01 L, Hgb 11.7 L, Hct 35.0 L, MCV 87.3, MCH 29.2, MCHC 33.4, RDW Std Deviation 45.6 H, RDW Coeff of Gerhard 14.0, Plt Count 292, MPV 9.2, Immature Gran % (Auto) 0.300, Neut % (Auto) 62.6, Lymph % (Auto) 29.0, [place] % (Auto) 6.1, Eos % (Auto) 1.8, Baso % (Auto) 0.2, Absolute Neuts (auto) 7.3, Absolute Lymphs (auto) 3.40, Nucleated RBC % 0, Sodium 142, Potassium 3.7, Chloride 110 H, Carbon Dioxide 20.3 L, Anion Gap 11, BUN 27 H, Creatinine 0.82, Estim Creat Clear Calc 54.34, Est GFR (MDRD) Non-Af 77, BUN/Creatinine Ratio 32.6 H, Glucose 135 H, Calcium 8.9 11/10/24 06:56: POC Glucose 132 H Micro: Microbiology 11/08/24 03:15 Mucosa - Nasopharyngeal Respiratory Panel (PCR) - Final Physical Exam Narrative General: Alert, disoriented, Cooperative, No apparent distress HEENT: Atraumatic, PERRLA, EOMI, Normocephalic, ecchymosis over her left eye Oral: Moist Mucosa Neck: Supple, No JVD Lungs: Diminished, Normal air movement, No rhonchi, No wheeze, No rales Cardiovascular: Regular rate, Regular Rhythm, Normal S1, Normal S2, No murmurs Abdomen: Soft, Non Tender, Non-Distended, No Hepato-splenomegaly Extremities: No edema, Capillary Refill Less than 3 Seconds Skin: No rashes, No breakdown Musculoskeletal: No Tenderness to Palpation of Joints or Extremities Neurological: No focal neurological deficits, Motor Exam 5/5 strength throughout, Sensory exam intact to light touch and pain Psych/Mental Status: Normal Affect, Appropriate disoriented Assessment & Plan Assessment/Plan (1) DKA (diabetic ketoacidoses): QUALIFIERS: Diabetes mellitus type: type 2 Diabetes mellitus complication detail: without coma Qualified Code(s): E11.10 - Type 2 diabetes mellitus with ketoacidosis without coma (2) Hypertensive urgency: (3) Acute metabolic encephalopathy: PLAN: Plan 1. DKA in the setting of type 2 diabetes with diabetic neuropathy ? Her gap's are closed x 2 ? Transition to subcu insulin and can transfer out of the ICU ? Will attempt to restart gabapentin during her hospitalization ? PT/OT for evaluation and possible placement 2. Hypertensive urgency/HLD/paroxysmal A-fib ? Continue with statin ? Continue with Eliquis ? Will monitor make adjustments as necessary ? Can resume her home medications 3. Acute metabolic encephalopathy in the setting of dementia ? Her altered mental status is likely related to her DKA and that she does have chronic dementia ? There was a concern for possible stroke, NIH of 1 for aphasia ? Uncertain that continued workup for stroke is warranted 4. Bipolar ? Continue with her home meds ? Stable 5. GERD ? Stable ? Continue with PPI DVT: Eliquis Charges/Coding Visit Charges Inpatient E&M: 78381 Subs Hosp L2
[2024-11-10] MEDS: 0.9% Normal Saline (1000mL) 1,000 ML 75 ML IV (11:12)
[2024-11-10 15:00] VITALS: BP 149/60; PULSE 69; RESP 18; TEMP 36.6; O2SAT 98
[2024-11-10 21:52] VITALS: BP 133/80; PULSE 94; RESP 15; TEMP 37.1; O2SAT 99
[2024-11-10] MEDS: APIXABAN 5 MG TABLET PO (21:58)
[2024-11-10] MEDS: Glucerna Shake 120 ML LIQUID PO (22:02)
[2024-11-11] MEDS: 0.9% Normal Saline (1000mL) 1,000 ML 75 ML IV ×2 (00:28→15:16)
[2024-11-11 03:18] VITALS: BP 144/77; PULSE 80; RESP 15; TEMP 37; O2SAT 96
[2024-11-11 06:00] VITALS: BMI 23.7
[2024-11-11 06:44] LABS: Anion Gap 10 (5-15); BUN 15 mg/dL (4-19); BUN/Creat Ratio 23.1 RATIO (10-20); Calcium,Total 8.6 mg/dL (7.6-11.0); Carbon Dioxide 22.4 mmol/L (21.0-32.0); Chloride 109 mmol/L (98-108); Estimated Creatinine Clearance 55.70 ml/min (50-250); Glucose 131 mg/dL (70-99); Potassium 3.4 mmol/L (3.3-5.1)
[2024-11-11 06:47] LABS: Hematocrit 35.9 % (37-47); Hemoglobin 11.3 g/dL (12.0-15.0); Immature Granulocytes Count 0.040 X10^3/uL (0.0-0.0); Mean Corp Hgb Conc 31.5 g/dL (32-36); Mean Corpuscular Volume 89.5 fL (81-99); Mean Platelet Vol. 9.6 fl (6.2-12.0); NRBC Flagged by Analyzer 0 % (0-5); Platelet Count 288 K/mm3 (150-450); RBC Distribution Width CV 13.7 % (11.6-14.6); RBC Distribution Width SD 45.2 fl (35.1-43.9); Red Blood Count 4.01 M/mm3 (4.2-5.4); White Blood Count 9.5 K/mm3 (4.4-11.0)
--- NOTE | 2024-11-11 07:57 | PCM.PN.HOSP ---
Subjective Subjective Doing well, no issues overnight. Objective Data Objective Data Vital Signs: Vital Signs Temp Pulse Resp BP Pulse Ox O2 Del Method 98.6 F 80 15 144/77 H 96 Room Air 11/11/24 03:18 11/11/24 03:18 11/11/24 03:18 11/11/24 03:18 11/11/24 03:18 11/11/24 04:14 Oxygen Delivery Method Room Air Weight: 138 lb 14.259 oz Body Mass Index (BMI) 23.7 Intake & Output: Intake and Output for Last 24 Hours 11/10/24 11/11/24 11/12/24 03:59 03:59 03:59 Intake Total 1348.75 / 1348.75 2153.75 / 2153.75 Output Total 725 / 725 950 / 950 Balance 623.75 / 623.75 1203.75 / 1203.75 Lab / Micro Data 11/11/24 05:16 11/11/24 05:16 Labs: Laboratory Results - last 24 hr 11/10/24 11:11: POC Glucose 137 H 11/10/24 15:35: POC Glucose 168 H 11/10/24 22:06: POC Glucose 145 H 11/11/24 05:16: WBC 9.5, RBC 4.01 L, Hgb 11.3 L, Hct 35.9 L, MCV 89.5, MCH 28.2, MCHC 31.5 L D, RDW Std Deviation 45.2 H, RDW Coeff of Gerhard 13.7, Plt Count 288, MPV 9.6, Immature Gran % (Auto) 0.400, Neut % (Auto) 55.0, Lymph % (Auto) 35.1, [place] % (Auto) 6.3, Eos % (Auto) 3.0, Baso % (Auto) 0.2, Absolute Neuts (auto) 5.2, Absolute Lymphs (auto) 3.35, Nucleated RBC % 0, Sodium 142, Potassium 3.4, Chloride 109 H, Carbon Dioxide 22.4, Anion Gap 10, BUN 15, Creatinine 0.66 L, Estim Creat Clear Calc 55.70, Est GFR (MDRD) Non-Af 94, BUN/Creatinine Ratio 23.1 H, Glucose 131 H, Calcium 8.6 11/11/24 06:33: POC Glucose 141 H Micro: Microbiology 11/08/24 03:15 Mucosa - Nasopharyngeal Respiratory Panel (PCR) - Final Physical Exam Narrative General: Alert, oriented x 2, Cooperative, No apparent distress HEENT: Atraumatic, PERRLA, EOMI, Normocephalic, ecchymosis over her left eye Oral: Moist Mucosa Neck: Supple, No JVD Lungs: Diminished, Normal air movement, No rhonchi, No wheeze, No rales Cardiovascular: Regular rate, Regular Rhythm, Normal S1, Normal S2, No murmurs Abdomen: Soft, Non Tender, Non-Distended, No Hepato-splenomegaly Extremities: No edema, Capillary Refill Less than 3 Seconds Skin: No rashes, No breakdown Musculoskeletal: No Tenderness to Palpation of Joints or Extremities Neurological: No focal neurological deficits, moves all extremities Psych/Mental Status: Normal Affect, Appropriate disoriented Assessment & Plan Assessment/Plan (1) DKA (diabetic ketoacidoses): QUALIFIERS: Diabetes mellitus type: type 2 Diabetes mellitus complication detail: without coma Qualified Code(s): E11.10 - Type 2 diabetes mellitus with ketoacidosis without coma (2) Hypertensive urgency: (3) Acute metabolic encephalopathy: PLAN: Plan 1. DKA in the setting of type 2 diabetes with diabetic neuropathy ? Her gap's are closed x 2 ? Transition to subcu insulin and can transfer out of the ICU ? Will attempt to restart gabapentin during her hospitalization ? PT/OT for evaluation and possible placement 2. Hypertensive urgency/HLD/paroxysmal A-fib ? Continue with statin ? Continue with Eliquis ? Will monitor make adjustments as necessary ? Can resume her home medications 3. Acute metabolic encephalopathy in the setting of dementia ? Her altered mental status is likely related to her DKA and that she does have chronic dementia ? There was a concern for possible stroke, NIH of 1 for aphasia ? Uncertain that continued workup for stroke is warranted 4. Bipolar ? Continue with her home meds ? Stable 5. GERD ? Stable ? Continue with PPI DVT: Eliquis Charges/Coding Visit Charges Inpatient E&M: 96695 Subs Hosp L2
[2024-11-11 08:23] VITALS: BP 138/87; PULSE 83; RESP 16; TEMP 36.1; O2SAT 98
[2024-11-11] MEDS: Insulin Glargine-YFGN 100 UNIT/ML Pen 10 UNIT SC (08:27)
[2024-11-11] MEDS: APIXABAN 5 MG TABLET PO ×2 (08:29→21:03)
--- NOTE | 2024-11-11 12:17 | CASEMGMT ---
Addendum entered by Kathya Portillo 11/11/24 15:19: HAMILTON COSTA into pt room, pt sitting up in chair in no distress. Made pt aware that [facility] not have any beds available. Provided pt with a list of SNFs to chose from. Pt states she does not have her glasses here and she cant read it. Read pt all the [place] SNF's. Pt states she can't decide and her is here and she would like her to decide. HAMILTON COSTA found in lobby, he came back to room. Had a discussion with patient and regarding dc planning. Pt became frustrated and threw the SNF list. Pt then apologized later. Pt states that he is as bad off as she is. He states that he wants the cycle to end with pt. Asked him to expand on what he meant by this. He states that the pt is hospitalized, goes to SNF then back home and pt falls and the cycle continues. Discussed with pt and what part of the cycle would they like to change. He states he wants to move to [facility] to live in their [place] and pt does not want to do this. He states he would like her to go somewhere custodial. Asked pt if this is what she wants and she shrugs her shoulders. Pt then stated her tailbone hurts and she wants to go back to bed. Requested aide for this. Pt and then came to a decision that they would want [facility] for s/t rehab. Pt and aware that if they feel pt will need custodial care after being at [facility], they can discuss this with them. Pt and deny further needs at this time. Requested dc speech language pathology assistant send referral to [facility]. Addendum entered by Kathya Portillo 11/11/24 12:29: Pt and dtr deny need for a list of other options for SNF. Original Note: HAMILTON COSTA into pt room, pt lying in bed in no distress. Pt able to state who she is, the president and where she is but thought the year was 2011. Discussed how pt is feeling and how she felt therapy went. Pt states she does not feel she can return home. Pt did not elaborate much when speaking but shook her head to questions. Pt states she would still like to go to [facility]. TC to pt dtrPam, she states that she would like another urine done on her mother. She states she feels this is what is causing the confusion. She was made aware that when the physician rounded he stated pt does not have a UTI nor does she have symptoms of one such as fever, white count, etc. She states then they need to find out what is causing her confusion. That is not Donna Benavidez lying in that bed. She is aware that this RN CM will relay the information to the hospitalist. Messaged hospitalist at this time. Daughter states pt will be coming in today possibly. Pt dtr aware pt stated she would like to go to [facility]. Pt dtr is agreeable to this. Requested dc speech language pathology assistant send referral to [facility].
--- NOTE | 2024-11-11 12:42 | CASEMGMT ---
Addendum entered by Anum Soler 11/11/24 13:26: [facility] has declined d/t no bed availability. HAMILTON CM updated. Anum Soler DC Planning Asst. Original Note: Discharge Planning Referral sent to [facility]. Anum Soler DC Planning Asst.
--- NOTE | 2024-11-11 14:02 | CASEMGMT ---
Discharge Planning A list of?SNF providers including quality and resource use data and consistent with the patient's preferred geographic region, medical needs, and insurance network was created in [employer] [facility].? This list was provided to the Anum Soler Discharge Planning Asst.
--- NOTE | 2024-11-11 15:06 | CASEMGMT ---
Addendum entered by Anum Soler 11/11/24 15:21: [facility] has accepted and will submit for precert. HAMILTON CM updated. Anum Soler DC Planning Asst. Original Note: Discharge Planning Referral sent to [facility]. Anum Soler DC Planning Asst.
[2024-11-11 15:12] VITALS: BP 149/79; PULSE 70; RESP 16; TEMP 36.7; O2SAT 98
--- NOTE | 2024-11-11 16:34 | NURSING ---
phoned spouse as per demographics sheet phone number to obtain MRI questions. no answer, voicemail message left to call back to [facility] with unit number phone.
--- NOTE | 2024-11-11 16:41 | CASEMGMT ---
Social Work- SW attempted to meet with pt to complete safety assessment. Pt present in room; SW will follow up when pt is alone/. CARMEN Owens
--- NOTE | 2024-11-11 20:34 | NURSING ---
cath leaking a new murcia cath F 18 inserted. Sterile technique maintained. Will obtain ua.
[2024-11-11 20:57] VITALS: BP 157/86; PULSE 89; RESP 20; TEMP 36.8; O2SAT 100
[2024-11-11 22:52] LABS: Mucous, Urine 0 SEEN /hpf (<or=2+); Squamous Epithelial Cells - UA 0 SEEN /hpf (5-10)
[2024-11-11 22:57] LABS: Color, Urine Yellow (Yellow); Glucose, Dipstick Normal (Normal); Ketone-Dipstick Negative (Negative); Leukocyte Esterase-Dipstick Negative /ul (Negative); Nitrite-Dipstick Negative (Negative); Occult Blood-Urine 150 /ul (Negative); Protein-Dipstick 30 mg/dl (Negative); Specific Gravity, Urine 1.010 (1.002-1.030); Urine Bilirubin Dipstick Negative (Negative)
[2024-11-11 23:30] LABS: Red Blood Cells-Urine 10-25 SEEN /hpf (0-5)
[2024-11-12 03:29] VITALS: BMI 23.8
[2024-11-12] MEDS: 0.9% Normal Saline (1000mL) 1,000 ML 75 ML IV ×2 (04:00→17:46)
[2024-11-12 04:07] VITALS: BP 158/84; PULSE 91; RESP 18; TEMP 36.6; O2SAT 98
--- NOTE | 2024-11-12 05:55 | MRI_ITS ---
PROCEDURE: BRAIN WITHOUT CONTRAST 11/12/2024 REASON FOR EXAM: AMS TECHNIQUE: Procedure Code: MRIBR Modality: MR Procedure: BRAIN WITHOUT CONTRAST Multiplanar and multisequence images were obtained. COMPARISON: CT head without contrast, 11/08/2024. FINDINGS: There is a chronic lacunar infarction in the periventricular white matter of the right frontal lobe. There is mild diffuse cerebral atrophy with concomitant ventriculomegaly. There is a normal sulcal pattern and gyral configuration. There is no evidence of acute intracranial hemorrhage or infarction. The land-white differentiation is well preserved. There is no evidence of restricted diffusion. The basilar cisterns are normal. There are normal flow voids demonstrated in the recognized intracranial vessels. The cerebellum and brainstem are unremarkable. The cerebellar pontine angles are normal. The craniovertebral junction is normal. The sella and suprasellar regions are normal. There are bilateral intra-ocular lens implants. The orbits and retro-orbital regions are otherwise unremarkable. There is right rachel bullosa. There is nasal septal deviation to the right. There is thickening of the left nasal mucosa. The paranasal sinuses are clear. The mastoid air cells are clear. There is normal bone marrow signal in the skull base and calvarium. MRI/Brain without Contrast IMPRESSION: 1. No evidence of acute intracranial pathology. 2. Mild cerebral atrophy. 3. Chronic lacunar infarction in the right frontal lobe. Reading Location: [place] [address]
[2024-11-12 06:09] LABS: Hematocrit 36.4 % (37-47); Hemoglobin 11.7 g/dL (12.0-15.0); Immature Granulocytes Count 0.030 X10^3/uL (0.0-0.0); Mean Corp Hgb Conc 32.1 g/dL (32-36); Mean Corpuscular Volume 88.1 fL (81-99); Mean Platelet Vol. 9.5 fl (6.2-12.0); NRBC Flagged by Analyzer 0 % (0-5); Platelet Count 282 K/mm3 (150-450); RBC Distribution Width CV 13.4 % (11.6-14.6); RBC Distribution Width SD 43.5 fl (35.1-43.9); Red Blood Count 4.13 M/mm3 (4.2-5.4); White Blood Count 10.0 K/mm3 (4.4-11.0)
[2024-11-12 07:05] LABS: Anion Gap 11 (5-15); BUN 10 mg/dL (4-19); BUN/Creat Ratio 14.6 RATIO (10-20); Calcium,Total 8.6 mg/dL (7.6-11.0); Carbon Dioxide 21.1 mmol/L (21.0-32.0); Chloride 110 mmol/L (98-108); Estimated Creatinine Clearance 55.70 ml/min (50-250); Glucose 146 mg/dL (70-99); Potassium 3.3 mmol/L (3.3-5.1)
--- NOTE | 2024-11-12 07:44 | PN.HOSP_ITS ---
Reason for Visit Chief Complaint: Abdominal Pain and AMS. Subjective Subjective Patient is a 69-year-old lady admitted with altered mental status diagnosis of diabetic ketoacidosis made admitted to the intensive care unit subsequently managed and stabilized and transferred to [facility] Objective Data Objective Data Vital Signs: Vital Signs Temp Pulse Resp BP Pulse Ox O2 Del Method 98 F 91 18 158/84 H 98 Room Air 11/12/24 04:07 11/12/24 04:07 11/12/24 04:07 11/12/24 04:07 11/12/24 04:07 11/12/24 04:08 Oxygen Delivery Method Room Air Weight: 63.2 kg Body Mass Index (BMI) 23.8 Intake & Output: Intake and Output for Last 24 Hours 11/10/24 11/11/24 11/12/24 23:59 23:59 23:59 Intake Total 1158.75 / 1158.75 1994 1155 / 1155 Output Total 925 / 925 2150 / 2150 800 / 800 Balance 233.75 / 233.75 -155 / -155 355 / 355 Lab / Micro Data 11/12/24 05:19 11/12/24 05:19 Labs: Laboratory Results - last 24 hr 11/11/24 11:40: POC Glucose 186 H 11/11/24 16:22: POC Glucose 179 H 11/11/24 21:01: POC Glucose 157 H 11/11/24 21:15: Urine Color Yellow, Urine Clarity Clear, Urine pH 8.0, Ur Specific [place] 1.010, Urine Protein 30 H, Urine Glucose (UA) Normal, Urine Ketones Negative, Urine Occult Blood 150 H, Urine Nitrite Negative, Urine Bilirubin Negative, Urine Urobilinogen Normal, Ur Leukocyte Esterase Negative, Urine RBC 10-25 SEEN, Urine WBC 10-25 SEEN, Ur Squamous Epith Cells 0 SEEN, Urine Bacteria RARE, Urine Mucus 0 SEEN 11/12/24 05:19: WBC 10.0, RBC 4.13 L, Hgb 11.7 L, Hct 36.4 L, MCV 88.1, MCH 28.3, MCHC 32.1, RDW Std Deviation 43.5, RDW Coeff of Gerhard 13.4, Plt Count 282, MPV 9.5, Immature Gran % (Auto) 0.300, Neut % (Auto) 61.4, Lymph % (Auto) 29.8, [place] % (Auto) 5.2, Eos % (Auto) 3.0, Baso % (Auto) 0.3, Absolute Neuts (auto) 6.2, Absolute Lymphs (auto) 2.99, Nucleated RBC % 0, Sodium 142, Potassium 3.3, Chloride 110 H, Carbon Dioxide 21.1, Anion Gap 11, BUN 10, Creatinine 0.66 L, Estim Creat Clear Calc 55.70, Est GFR (MDRD) Non-Af 94, BUN/Creatinine Ratio 14.6, Glucose 146 H, Calcium 8.6 11/12/24 06:46: POC Glucose 134 H Micro: Microbiology 11/08/24 03:15 Mucosa - Nasopharyngeal Respiratory Panel (PCR) - Final Physical Exam Narrative GENERAL: cooperative HEENT: Atraumatic; normocephalic EYES; Anicteric, Normal Conjunctiva NECK; supple, normal thyroid, RESPIRATORY: Diminished to auscultation CARDIOVASCULAR: Regular S1 S2, GI: soft, normoactive bowel sounds, : No Renal angle tenderness; EXTREMITIES: No edema, no clubbing, MUSCULOSKELETAL: no muscle wasting NEURO: Awake; no lateralizing signs. SKIN: No Rash PSYCH; Flat affect Assessment & Plan Assessment/Plan (1) DKA (diabetic ketoacidoses): QUALIFIERS: Diabetes mellitus type: type 2 Diabetes mellitus complication detail: without coma Qualified Code(s): E11.10 - Type 2 diabetes mellitus with ketoacidosis without coma (2) Hypertensive urgency: (3) Acute metabolic encephalopathy: PLAN: Plan Patient is a 69-year-old lady admitted with altered mental status diagnosis of diabetic ketoacidosis made admitted to the intensive care unit subsequently managed and stabilized and transferred to [facility] 1. DKA in the setting of type 2 diabetes with diabetic neuropathy ? Her gap's are closed x 2 ? Transition to subcu insulin and can transfer out of the ICU ? Will attempt to restart gabapentin during her hospitalization ? PT/OT for evaluation and possible placement 2. Hypertensive urgency/HLD/paroxysmal A-fib ? Continue with statin ? Continue with Eliquis ? Will monitor make adjustments as necessary ? Can resume her home medications 3. Acute metabolic encephalopathy in the setting of dementia ? Her altered mental status is likely related to her DKA and that she does have chronic dementia ? There was a concern for possible stroke, NIH of 1 for aphasia ? Uncertain that continued workup for stroke is warranted 4. Bipolar ? Continue with her home meds ? Stable 5. GERD ? Stable ? Continue with PPI 2. Physical deconditioning secondary to debility following the fall ? Requested for PT OT eval and psychotherapist social worker to assist with discharge planning 3. Acute kidney injury ? Creatinine on admission was 1.13 patient kidney function did bump up to 1.7 started on IV fluid with avoidance of potential nephrotoxic medications. Ordered renal ultrasound as part of patient's evaluation ? 05/15/2024Patient seen, patient kidney function did worsen. Renal ultrasound obtained the day prior demonstrated bilateral renal cyst and none obstructive calculus in the right kidney. Review of patient kidney function over the past year shows intermittent DURAN's. Consult subsequently placed to nephrology. 4. Dyslipidemia ?Patient is on statin therapy, continued at home dose 5. Hypertension ? Blood pressure controlled, home medications continued with dose adjustment as needed 6. History of peptic ulcer disease ?EGD performed on 01/04/2024 showed ulcers in the esophagus, duodenum, and gastric areas. Patient is on PPI 7. Diabetes mellitus type II -patient's oral 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s held. Placed on long acting insulin, Accu-Cheks a.c. and at bedtime and covered with sliding scale insulin 8. History of Takotsubo cardiomyopathy ? Remains stable 9. History of renal artery stenosis ? Remains stable 10. Paroxysmal atrial fibrillation ? Rate controlled on carvedilol and systemic anticoagulation with apixaban 11. Depression with anxiety ? Patient is on BuSpar as well as fluoxetine continue 12. Obstructive sleep apnea ? Consistent use of PAP therapy encouraged 13. DVT prophylaxis ? Patient is on apixaban Time spent in the patient's overall evaluation,decision-making process, review of diagnostic data, adjustment of management, discussion with other providers, nursing nursing and ancillary staff involved in patient's care documentation, 40 minutes DVT: Nevaeh
--- NOTE | 2024-11-12 07:44 | PCM.PN.HOSP ---
Reason for Visit Chief Complaint: Abdominal Pain and AMS. Subjective Subjective Patient is a 69-year-old lady admitted with altered mental status diagnosis of diabetic ketoacidosis made admitted to the intensive care unit subsequently managed and stabilized and transferred to [facility] Objective Data Objective Data Vital Signs: Vital Signs Temp Pulse Resp BP Pulse Ox O2 Del Method 98 F 91 18 158/84 H 98 Room Air 11/12/24 04:07 11/12/24 04:07 11/12/24 04:07 11/12/24 04:07 11/12/24 04:07 11/12/24 04:08 Oxygen Delivery Method Room Air Weight: 63.2 kg Body Mass Index (BMI) 23.8 Intake & Output: Intake and Output for Last 24 Hours 11/10/24 11/11/24 11/12/24 23:59 23:59 23:59 Intake Total 1158.75 / 1158.75 1994 1155 / 1155 Output Total 925 / 925 2150 / 2150 800 / 800 Balance 233.75 / 233.75 -155 / -155 355 / 355 Lab / Micro Data 11/12/24 05:19 11/12/24 05:19 Labs: Laboratory Results - last 24 hr 11/11/24 11:40: POC Glucose 186 H 11/11/24 16:22: POC Glucose 179 H 11/11/24 21:01: POC Glucose 157 H 11/11/24 21:15: Urine Color Yellow, Urine Clarity Clear, Urine pH 8.0, Ur Specific [place] 1.010, Urine Protein 30 H, Urine Glucose (UA) Normal, Urine Ketones Negative, Urine Occult Blood 150 H, Urine Nitrite Negative, Urine Bilirubin Negative, Urine Urobilinogen Normal, Ur Leukocyte Esterase Negative, Urine RBC 10-25 SEEN, Urine WBC 10-25 SEEN, Ur Squamous Epith Cells 0 SEEN, Urine Bacteria RARE, Urine Mucus 0 SEEN 11/12/24 05:19: WBC 10.0, RBC 4.13 L, Hgb 11.7 L, Hct 36.4 L, MCV 88.1, MCH 28.3, MCHC 32.1, RDW Std Deviation 43.5, RDW Coeff of Gerhard 13.4, Plt Count 282, MPV 9.5, Immature Gran % (Auto) 0.300, Neut % (Auto) 61.4, Lymph % (Auto) 29.8, [place] % (Auto) 5.2, Eos % (Auto) 3.0, Baso % (Auto) 0.3, Absolute Neuts (auto) 6.2, Absolute Lymphs (auto) 2.99, Nucleated RBC % 0, Sodium 142, Potassium 3.3, Chloride 110 H, Carbon Dioxide 21.1, Anion Gap 11, BUN 10, Creatinine 0.66 L, Estim Creat Clear Calc 55.70, Est GFR (MDRD) Non-Af 94, BUN/Creatinine Ratio 14.6, Glucose 146 H, Calcium 8.6 11/12/24 06:46: POC Glucose 134 H Micro: Microbiology 11/08/24 03:15 Mucosa - Nasopharyngeal Respiratory Panel (PCR) - Final Physical Exam Narrative GENERAL: cooperative HEENT: Left periorbital bruise normocephalic EYES; Anicteric, Normal Conjunctiva NECK; supple, normal thyroid, RESPIRATORY: Diminished to auscultation CARDIOVASCULAR: Regular S1 S2, GI: soft, normoactive bowel sounds, : No Renal angle tenderness; EXTREMITIES: No edema, no clubbing, MUSCULOSKELETAL: no muscle wasting NEURO: Awake; no lateralizing signs. SKIN: Bruising on the left flank PSYCH; Flat affect Assessment & Plan Assessment/Plan (1) DKA (diabetic ketoacidoses): QUALIFIERS: Diabetes mellitus complication detail: without coma Diabetes mellitus type: type 2 Qualified Code(s): E11.10 - Type 2 diabetes mellitus with ketoacidosis without coma (2) Hypertensive urgency: (3) Acute metabolic encephalopathy: PLAN: Plan Patient is a 69-year-old lady admitted with altered mental status with nausea and vomiting and multiple falls diagnosis of diabetic ketoacidosis made admitted to the intensive care unit subsequently managed and stabilized and transferred to [facility] 1. Diabetic ketoacidosis in the setting of diabetes mellitus type 2 ? Managed per protocol with IV fluids and insulin and correction of electrolyte abnormalities. DKA resolved patient transferred to [facility]. Currently on long-acting insulin with Accu-Cheks AC and at bedtime with sliding scale coverage. Patient oral 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 agents on hold 2. Acute metabolic encephalopathy ? Secondary to DKA 3. Acute hypertensive urgency ? Patient blood pressure has since stabilized following admission 4. Physical deconditioning secondary to debility following the fall ? Requested for PT OT eval and social service liaison to assist with discharge planning 5. Acute kidney injury ? Creatinine on admission was 1.05. Patient kidney function has improved to 0.66 6. Dyslipidemia ?Patient is on statin therapy, continued at home dose 7. History of peptic ulcer disease ?EGD performed on 01/04/2024 showed ulcers in the esophagus, duodenum, and gastric areas. Patient is on PPI 8. History of Takotsubo cardiomyopathy ? Remains stable 9. History of renal artery stenosis ? Remains stable 10. Paroxysmal atrial fibrillation ? Rate controlled on carvedilol and systemic anticoagulation with apixaban 11. Depression with anxiety ? Patient is on BuSpar as well as fluoxetine continue 12. Obstructive sleep apnea ? Consistent use of PAP therapy encouraged 13. Dementia ? With behavioral agitation. Stated by patient DKA. Patient is on donepezil continued 14. DVT prophylaxis ? Patient is on apixaban Time spent in the patient's overall evaluation,decision-making process, review of diagnostic data, adjustment of management, discussion with other providers, nursing nursing and ancillary staff involved in patient's care documentation, 38 minutes Charges/Coding Visit Charges Inpatient E&M: 37076 Subs Hosp L2
[2024-11-12 08:02] VITALS: BP 158/77; PULSE 77; RESP 16; TEMP 36.7; O2SAT 97
[2024-11-12] MEDS: Senna/Docusate Sodium 1 Tablet 2 TABLET PO ×2 (08:08→21:55)
[2024-11-12] MEDS: APIXABAN 5 MG TABLET PO ×2 (08:10→21:55)
[2024-11-12] MEDS: Lidocaine 5% Patch 2 PATCH TOPICAL (08:10)
[2024-11-12] MEDS: Insulin Glargine-YFGN 100 UNIT/ML Pen 10 UNIT SC (08:11)
[2024-11-12] MEDS: 0.9% Saline Lock 10 ML Syringe IV (09:48)
--- NOTE | 2024-11-12 10:27 | CASEMGMT ---
Social Work- SW met with pt to complete assessment. Pt intermittently confused, O x 1-2. Pt did report understanding the questions asked, reporting that she was just tired. Pt denies any concerns. SW coordinated with RNCM. SW remains available to follow. CARMEN Owens
--- NOTE | 2024-11-12 11:27 | NURSING ---
note received that daughter Pam Bernstein phoned in and wanted update. phoned at number listed in demographics and no answer, voicemail message left with number to unit.
[2024-11-12 14:07] VITALS: BP 114/63; PULSE 84; RESP 16; TEMP 36.9; O2SAT 99
--- NOTE | 2024-11-12 14:45 | CASEMGMT ---
Received tc from Mia COSTA at [facility] requesting dc plan. She is aware that we are awaiting approval for SNF stay.
--- NOTE | 2024-11-12 16:02 | CASEMGMT ---
HAMILTON CM into pt room to make aware that [facility] has accepted her for care and that we are awaiting insurance approval. Pt pointed to card on her side table of corporate care from [facility]. She states someone came to visit her. Pt denies any further needs at this time. Pt spoke of her night lastnight. Pt sitting up in bed watching tv. Adjusted tv channel per her request.
[2024-11-12 21:45] VITALS: BP 154/75; PULSE 67; RESP 16; TEMP 36.6; O2SAT 67
[2024-11-12] MEDS: Glucerna Shake 120 ML LIQUID PO (21:55)
[2024-11-13 02:40] VITALS: BP 117/58; PULSE 68; RESP 16; TEMP 36.6; O2SAT 97
[2024-11-13 04:16] VITALS: BMI 25.0
[2024-11-13 06:50] LABS: Hematocrit 37.2 % (37-47); Hemoglobin 12.1 g/dL (12.0-15.0); Immature Granulocytes Count 0.020 X10^3/uL (0.0-0.0); Mean Corp Hgb Conc 32.5 g/dL (32-36); Mean Corpuscular Volume 89.4 fL (81-99); Mean Platelet Vol. 9.4 fl (6.2-12.0); NRBC Flagged by Analyzer 0 % (0-5); Platelet Count 258 K/mm3 (150-450); RBC Distribution Width CV 13.6 % (11.6-14.6); RBC Distribution Width SD 44.8 fl (35.1-43.9); Red Blood Count 4.16 M/mm3 (4.2-5.4); White Blood Count 7.4 K/mm3 (4.4-11.0)
[2024-11-13] MEDS: 0.9% Normal Saline (1000mL) 1,000 ML 75 ML IV ×2 (07:00→20:59)
[2024-11-13 07:11] LABS: Anion Gap 10 (5-15); BUN 12 mg/dL (4-19); BUN/Creat Ratio 16.0 RATIO (10-20); Calcium,Total 8.7 mg/dL (7.6-11.0); Carbon Dioxide 22.7 mmol/L (21.0-32.0); Chloride 111 mmol/L (98-108); Estimated Creatinine Clearance 60.50 ml/min (50-250); Glucose 127 mg/dL (70-99); Magnesium 1.9 mg/dL (1.5-2.2); Potassium 3.4 mmol/L (3.3-5.1)
[2024-11-13] MEDS: APIXABAN 5 MG TABLET PO ×2 (08:25→21:00)
[2024-11-13] MEDS: Senna/Docusate Sodium 1 Tablet 2 TABLET PO ×2 (08:25→21:02)
[2024-11-13] MEDS: Lidocaine 5% Patch 2 PATCH TOPICAL (08:26)
[2024-11-13] MEDS: Insulin Glargine-YFGN 100 UNIT/ML Pen 10 UNIT SC (08:32)
[2024-11-13] MEDS: Glucerna Shake 120 ML LIQUID PO ×4 (08:35→21:16)
[2024-11-13 08:49] VITALS: BP 163/64; PULSE 74; RESP 16; TEMP 36.6; O2SAT 96
--- NOTE | 2024-11-13 09:39 | PCM.PN.HOSP ---
Reason for Visit Chief Complaint: Abdominal Pain and AMS. Subjective Subjective Patient seen underwent MRI the day prior no acute CVA found. Results of the findings discussed with patient's family Objective Data Objective Data Vital Signs: Vital Signs Temp Pulse Resp BP Pulse Ox O2 Del Method 98 F 74 16 163/64 H 96 Room Air 11/13/24 08:49 11/13/24 08:49 11/13/24 08:49 11/13/24 08:49 11/13/24 08:49 11/13/24 08:49 Oxygen Delivery Method Room Air Weight: 66.5 kg Body Mass Index (BMI) 25.0 Intake & Output: Intake and Output for Last 24 Hours 11/11/24 11/12/24 11/13/24 23:59 23:59 23:59 Intake Total 1994 2141.25 / 2261.25 1112.5 / 1112.5 Output Total 2150 / 2150 1100 / 1100 550 / 550 Balance -155 / -155 1041.25 / 1161.25 562.5 / 562.5 Lab / Micro Data 11/13/24 06:19 11/13/24 06:19 Labs: Laboratory Results - last 24 hr 11/12/24 11:58: POC Glucose 167 H 11/12/24 16:08: POC Glucose 150 H 11/12/24 21:52: POC Glucose 144 H 11/13/24 06:19: WBC 7.4, RBC 4.16 L, Hgb 12.1, Hct 37.2, MCV 89.4, MCH 29.1, MCHC 32.5, RDW Std Deviation 44.8 H, RDW Coeff of Gerhard 13.6, Plt Count 258, MPV 9.4, Immature Gran % (Auto) 0.300, Neut % (Auto) 48.6, Lymph % (Auto) 41.4 H, [place] % (Auto) 5.7, Eos % (Auto) 3.6, Baso % (Auto) 0.4, Absolute Neuts (auto) 3.6, Absolute Lymphs (auto) 3.07, Nucleated RBC % 0, Sodium 143, Potassium 3.4, Chloride 111 H, Carbon Dioxide 22.7, Anion Gap 10, BUN 12, Creatinine 0.73, Estim Creat Clear Calc 60.50, Est GFR (MDRD) Non-Af 88, BUN/Creatinine Ratio 16.0, Glucose 127 H, Calcium 8.7, Phosphorus 3.0, Magnesium 1.9 Micro: Microbiology 11/08/24 03:15 Mucosa - Nasopharyngeal Respiratory Panel (PCR) - Final Radiography Diagnostic Testing: Radiology Impression Brain MRI 11/12/24 05:55 IMPRESSION: 1. No evidence of acute intracranial pathology. 2. Mild cerebral atrophy. 3. Chronic lacunar infarction in the right frontal lobe. Reading Location: [place] [address] Physical Exam Narrative GENERAL: cooperative HEENT: Left periorbital bruise normocephalic EYES; Anicteric, Normal Conjunctiva NECK; supple, normal thyroid, RESPIRATORY: Diminished to auscultation CARDIOVASCULAR: Regular S1 S2, GI: soft, normoactive bowel sounds, : No Renal angle tenderness; EXTREMITIES: No edema, no clubbing, MUSCULOSKELETAL: no muscle wasting NEURO: Awake; no lateralizing signs. SKIN: Bruising on the left flank PSYCH; Flat affect Assessment & Plan Assessment/Plan (1) DKA (diabetic ketoacidoses): QUALIFIERS: Diabetes mellitus complication detail: without coma Diabetes mellitus type: type 2 Qualified Code(s): E11.10 - Type 2 diabetes mellitus with ketoacidosis without coma (2) Hypertensive urgency: (3) Acute metabolic encephalopathy: PLAN: Plan Patient is a 69-year-old lady admitted with altered mental status with nausea and vomiting and multiple falls diagnosis of diabetic ketoacidosis made admitted to the intensive care unit subsequently managed and stabilized and transferred to [facility] 1. Diabetic ketoacidosis in the setting of diabetes mellitus type 2 ? Managed per protocol with IV fluids and insulin and correction of electrolyte abnormalities. DKA resolved patient transferred to [facility]. Currently on long-acting insulin with Accu-Cheks AC and at bedtime with sliding scale coverage. Patient oral 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 agents on hold 2. Acute metabolic encephalopathy ? Secondary to DKA ? 11/13/2024; patient underwent MRI the day prior findings included 1. No evidence of acute intracranial pathology. 2. Mild cerebral atrophy.3. Chronic lacunar infarction in the right frontal lobe. 3. Acute hypertensive urgency ? Patient blood pressure has since stabilized following admission ? 11/13/2024; subsequent adjustment made to patient antihypertensive regimen 4. Physical deconditioning secondary to debility following the fall ? Requested for PT OT eval and social security assessor to assist with discharge planning 5. Acute kidney injury ? Creatinine on admission was 1.05. Patient kidney function has improved to 0.66 6. Dyslipidemia ?Patient is on statin therapy, continued at home dose 7. History of peptic ulcer disease ?EGD performed on 01/04/2024 showed ulcers in the esophagus, duodenum, and gastric areas. Patient is on PPI 8. History of Takotsubo cardiomyopathy ? Remains stable 9. History of renal artery stenosis ? Remains stable 10. Paroxysmal atrial fibrillation ? Rate controlled on carvedilol and systemic anticoagulation with apixaban 11. Depression with anxiety ? Patient is on BuSpar as well as fluoxetine continue 12. Obstructive sleep apnea ? Consistent use of PAP therapy encouraged 13. Dementia ? With behavioral agitation. Stated by patient DKA. Patient is on donepezil continued 14. DVT prophylaxis ? Patient is on apixaban Time spent in the patient's overall evaluation,decision-making process, review of diagnostic data, adjustment of management, discussion with other providers, nursing nursing and ancillary staff involved in patient's care documentation, 35 minutes Charges/Coding Visit Charges Inpatient E&M: 45891 Subs Hosp L2
[2024-11-13 11:21] VITALS: BP 99/70; PULSE 81; RESP 16; TEMP 36.6; O2SAT 96
--- NOTE | 2024-11-13 11:48 | CASEMGMT ---
Discharge Planning Updates sent to [facility]. Precert remains pending. Anum Soler DC Planning Asst.
[2024-11-13 16:07] VITALS: BP 137/65; PULSE 81; RESP 16; TEMP 36.9; O2SAT 100
[2024-11-13 20:56] VITALS: BP 129/69; PULSE 81; RESP 18; TEMP 36.8; O2SAT 97
[2024-11-14 04:20] VITALS: BP 141/71; PULSE 72; RESP 16; TEMP 36.5; O2SAT 95
[2024-11-14 06:00] VITALS: BMI 24.7
[2024-11-14 06:12] LABS: Hematocrit 32.6 % (37-47); Hemoglobin 10.4 g/dL (12.0-15.0); Immature Granulocytes Count 0.030 X10^3/uL (0.0-0.0); Mean Corp Hgb Conc 31.9 g/dL (32-36); Mean Corpuscular Volume 90.3 fL (81-99); Mean Platelet Vol. 9.8 fl (6.2-12.0); NRBC Flagged by Analyzer 0 % (0-5); Platelet Count 253 K/mm3 (150-450); RBC Distribution Width CV 13.5 % (11.6-14.6); RBC Distribution Width SD 45.0 fl (35.1-43.9); Red Blood Count 3.61 M/mm3 (4.2-5.4); White Blood Count 8.6 K/mm3 (4.4-11.0)
[2024-11-14 06:53] LABS: Anion Gap 10 (5-15); BUN 15 mg/dL (4-19); BUN/Creat Ratio 18.8 RATIO (10-20); Calcium,Total 8.8 mg/dL (7.6-11.0); Carbon Dioxide 21.3 mmol/L (21.0-32.0); Chloride 112 mmol/L (98-108); Estimated Creatinine Clearance 60.18 ml/min (50-250); Glucose 158 mg/dL (70-99); Potassium 3.6 mmol/L (3.3-5.1)
--- NOTE | 2024-11-14 07:15 | PN.HOSP_ITS ---
Reason for Visit Chief Complaint: Abdominal Pain and AMS. Subjective Subjective Patient seen had a relatively uneventful night. Awaiting insurance precertification prior to transfer to correction facility Objective Data Objective Data Vital Signs: Vital Signs Temp Pulse Resp BP Pulse Ox O2 Del Method 97.7 F L 72 16 141/71 H 95 Room Air 11/14/24 04:20 11/14/24 04:20 11/14/24 04:20 11/14/24 04:20 11/14/24 04:20 11/14/24 04:20 Oxygen Delivery Method Room Air Weight: 65.7 kg Body Mass Index (BMI) 24.7 Intake & Output: Intake and Output for Last 24 Hours 11/12/24 11/13/24 11/14/24 23:59 23:59 23:59 Intake Total 2141.25 / 2261.25 2812.5 / 2932.5 120 / 120 Output Total 1100 / 1100 1500 / 1700 475 / 475 Balance 1041.25 / 1161.25 1312.5 / 1232.5 -355 / -355 Lab / Micro Data 11/14/24 05:21 11/14/24 05:21 Labs: Laboratory Results - last 24 hr 11/13/24 06:39: POC Glucose 119 H 11/13/24 11:11: POC Glucose 163 H 11/13/24 16:24: POC Glucose 209 H 11/13/24 21:06: POC Glucose 183 H 11/14/24 05:21: WBC 8.6, RBC 3.61 L, Hgb 10.4 L, Hct 32.6 L, MCV 90.3, MCH 28.8, MCHC 31.9 L, RDW Std Deviation 45.0 H, RDW Coeff of Gerahrd 13.5, Plt Count 253, MPV 9.8, Immature Gran % (Auto) 0.300, Neut % (Auto) 54.1, Lymph % (Auto) 36.5, [place] % (Auto) 5.8, Eos % (Auto) 3.1, Baso % (Auto) 0.2, Absolute Neuts (auto) 4.6, Absolute Lymphs (auto) 3.13, Nucleated RBC % 0, Sodium 143, Potassium 3.6, C hloride 112 H, Carbon Dioxide 21.3, Anion Gap 10, BUN 15, Creatinine 0.78, Estim Creat Clear Calc 60.18, Est GFR (MDRD) Non-Af 81, BUN/Creatinine Ratio 18.8, G lucose 158 H, Calcium 8.8 11/14/24 06:21: POC Glucose 153 H Micro: Microbiology 11/08/24 03:15 Mucosa - Nasopharyngeal Respiratory Panel (PCR) - Final Physical Exam Narrative GENERAL: cooperative HEENT: Left periorbital bruise normocephalic EYES; Anicteric, Normal Conjunctiva NECK; supple, normal thyroid, RESPIRATORY: Diminished to auscultation CARDIOVASCULAR: Regular S1 S2, GI: soft, normoactive bowel sounds, : No Renal angle tenderness; EXTREMITIES: No edema, no clubbing, MUSCULOSKELETAL: no muscle wasting NEURO: Awake; no lateralizing signs. SKIN: Bruising on the left flank PSYCH; Flat affect Assessment & Plan Assessment/Plan (1) DKA (diabetic ketoacidoses): QUALIFIERS: Diabetes mellitus complication detail: without coma D iabetes mellitus type: type 2 Qualified Code(s): E11.10 - Type 2 diabetes mellitus with ketoacidosis without coma (2) Hypertensive urgency: (3) Acute metabolic encephalopathy: PLAN: Plan Patient is a 69-year-old lady admitted with altered mental status with nausea and vomiting and multiple falls diagnosis of diabetic ketoacidosis made admitted to the intensive care unit subsequently managed and stabilized and transferred to [facility] 1. Diabetic ketoacidosis in the setting of diabetes mellitus type 2 ? Managed per protocol with IV fluids and insulin and correction of electrolyte abnormalities. DKA resolved patient transferred to [facility]. Currently on long- acting insulin with Accu-Cheks AC and at bedtime with sliding scale coverage. Patient oral 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 agents on hold ? 11/14/2024; patient blood glucose control remains labile currently on Accu- Cheks AC and at bedtime with sliding scale coverage 2. Acute metabolic encephalopathy ? Secondary to DKA ? 11/13/2024; patient underwent MRI the day prior findings included 1. No evidence of acute intracranial pathology. 2. Mild cerebral atrophy.3. Chronic lacunar infarction in the right frontal lobe. ? 11/14/2024; patient back to baseline 3. Acute hypertensive urgency ? Patient blood pressure has since stabilized following admission ? 11/13/2024; subsequent adjustment made to patient antihypertensive regimen ? 11/14/2024; patient blood pressure control improving 4. Physical deconditioning secondary to debility following the fall ? Requested for PT OT eval and 7th grade social studies teacher to assist with discharge planning 5. Acute kidney injury ? Creatinine on admission was 1.05. Patient kidney function has improved to 0.66 6. Dyslipidemia ?Patient is on statin therapy, continued at home dose 7. History of peptic ulcer disease ?EGD performed on 01/04/2024 showed ulcers in the esophagus, duodenum, and gastric areas. Patient is on PPI 8. History of Takotsubo cardiomyopathy ? Remains stable 9. History of renal artery stenosis ? Remains stable 10. Paroxysmal atrial fibrillation ? Rate controlled on carvedilol and systemic anticoagulation with apixaban 11. Depression with anxiety ? Patient is on BuSpar as well as fluoxetine continue 12. Obstructive sleep apnea ? Consistent use of PAP therapy encouraged 13. Dementia ? With behavioral agitation. Stated by patient DKBrown. Patient is on donepezil continued 14. DVT prophylaxis ? Patient is on apixaban Time spent in the patient's overall evaluation,decision-making process, review of diagnostic data, adjustment of management, discussion with other providers, nursing nursing and ancillary staff involved in patient's care documentation, 35 minutes Charges/Coding Visit Charges Inpatient E&M: 07826 Subs Hosp L2
[2024-11-14 08:07] VITALS: BP 135/62; PULSE 69; RESP 17; TEMP 35.9; O2SAT 96
[2024-11-14] MEDS: 0.9% Normal Saline (1000mL) 1,000 ML 75 ML IV (09:23)
[2024-11-14] MEDS: APIXABAN 5 MG TABLET PO (09:24)
[2024-11-14] MEDS: Insulin Glargine-YFGN 100 UNIT/ML Pen 10 UNIT SC (09:24)
[2024-11-14] MEDS: Glucerna Shake 120 ML LIQUID PO ×2 (09:25→14:28)
[2024-11-14] MEDS: Senna/Docusate Sodium 1 Tablet 2 TABLET PO (09:25)
--- NOTE | 2024-11-14 10:53 | CASEMGMT ---
Discharge Planning Emily biggs/[facility] was able to provide name/number of the [facility] that she believes was attempting to find provider for pt's particular plan. Aleah Ro [phone]. VM was left for Aleah. RN CM updated. Anum Soler DC Planning Asst.
--- NOTE | 2024-11-14 11:40 | CASEMGMT ---
Addendum entered by Kathya Portillo 11/14/24 15:47: Received confirmation that insulin was discontinued. TC to Radha at [facility] and she is aware of the same. Addendum entered by Kathya Portillo 11/14/24 15:32: Noted that dc instructions states to continue insulin. RN JULISSA into pt room, pt states she does not take insulin at home. Also received tc from [facility] family preservation caseworker stating the same. Updated hospitalist of this and made aware if he wants insulin, this will need ordered as well as needles. Addendum entered by Kathya Portillo 11/14/24 15:05: HAMILTON COSTA into pt room, pt aware that she will dc today. Pt asks that her bring her a sundress and pull up. Spoke with pt nurse who states pt can be ready by 4pm. TC to pt , he asks how well pt can walk, made him aware. He is agreeable to being at main entrance at 4pm. He states he can bring the sundress and pull up and will ask the volunteer to bring to floor. He is aware he may need to wait in the car a bit while pt gets dressed, he states he is fine with this. Updated pt and pt nurse. Pt again states she does not want HHC. Plan to dc home. TC to [facility] family preservation caseworker, she is aware of pt dc'ing home and requests for dc instructions to be faxed to [phone]. Faxed at this time. Addendum entered by Kathya Portillo 11/14/24 14:34: Updated hospitalist on pt request to dc home and agreement. Therapy has not seen pt today but she would like to dc. Pt called in and is requesting to know if pt is dc'ing or not. Addendum entered by Kathya Portillo 11/14/24 12:48: TC to pt dtr, no answer, left requesting returned call. TC to pt , he states he can pick pt up today but would prefer not to come up to the floor as he is weak himself. He is aware that pt can be wheeled down to him and he can park at the main entrance. He is agreeable to this. He is aware that pt does not want to go to a facility that was offered and she declines HH. He states he knows she will not want HHC. He states she can come home if she wants to come home. Addendum entered by Kathya Portillo 11/14/24 12:42: 1220- HAMILTON COSTA into pt room, pt sitting up in chair eating breakfast. Pt alert and oriented at this time. Pt aware that [facility] is not in network. Discussed other options for SNF. Pt states I just want to go home. Discussed the locations of other facilities and pt denied. Pt states she feels she will be safe to return home. Pt states she has not worked with therapy yet. She is aware that this RN JULISSA will speak with them and see if she is safe to return home. TC to Renee in therapy to make aware plan may change to home. Pt asks if her will have to come pick her up. She is aware that he can. She states he was supposed to have gotten a new phone. Pt asks for HAMILTON COSTA to call her dtr Pam to update on plan. Discussed with pt HHC services, pt states she doesn't want HHC. Pt states she wants someone to assist cleaning her home. She is aware that RN JULISSA can discuss with [facility] CM. Original Note: Per yesterdays [facility] communication, [facility] is not in network with pt insurance plan. Received tc from Radha Ho at [facility] who states that the in network facilities are [facility], [place], [facility] and [facility]. Requested dc fiscal assistant recheck with the [place] to see if they now have bed availability.
[2024-11-14 14:28] VITALS: BP 156/66; PULSE 89; RESP 17; TEMP 36.3; O2SAT 98
--- NOTE | 2024-11-14 14:35 | DS.PCM_ITS ---
Providers Date of Admission: 11/08/24 Date of Discharge: 11/14/24 Primary Care Physician: Rupal Boyer, ORESTES Consultations 11/13/24 18:38 Consult: Onc/Wound/cooling room attendant Routine Comment: Reason for Consult:: barbara heel wounds Reason For Visit: DKA, AMS AND HYPERTENSIVE URGENCY Diagnosis Discharge Diagnosis (1) DKA (diabetic ketoacidoses): Status: Acute Code(s): E11.10 - Type 2 diabetes mellitus with ketoacidosis without coma Qualifiers: Diabetes mellitus type: type 2 Diabetes mellitus complication detail: w ithout coma Qualified Code(s): E11.10 - Type 2 diabetes mellitus with ketoacidosis without coma (2) Hypertensive urgency: Status: Acute Code(s): I16.0 - Hypertensive urgency (3) Acute metabolic encephalopathy: Status: Acute Code(s): G93.41 - Metabolic encephalopathy Plan Patient is a 69-year-old lady admitted with altered mental status with nausea and vomiting and multiple falls diagnosis of diabetic ketoacidosis made admitted to the intensive care unit subsequently managed and stabilized and transferred to [facility] 1. Diabetic ketoacidosis in the setting of diabetes mellitus type 2 ? Managed per protocol with IV fluids and insulin and correction of electrolyte abnormalities. DKA resolved patient transferred to [facility]. Currently on long- acting insulin with Accu-Cheks AC and at bedtime with sliding scale coverage. Patient oral 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 agents on hold ? 11/14/2024; patient blood glucose control remains labile currently on Accu- Cheks AC and at bedtime with sliding scale coverage 2. Acute metabolic encephalopathy ? Secondary to DKA ? 11/13/2024; patient underwent MRI the day prior findings included 1. No evidence of acute intracranial pathology. 2. Mild cerebral atrophy.3. Chronic lacunar infarction in the right frontal lobe. ? 11/14/2024; patient back to baseline 3. Acute hypertensive urgency ? Patient blood pressure has since stabilized following admission ? 11/13/2024; subsequent adjustment made to patient antihypertensive regimen ? 11/14/2024; patient blood pressure control improving 4. Physical deconditioning secondary to debility following the fall ? Requested for PT OT eval and socially responsible investment adviser to assist with discharge planning ? 11/14/2024; patient declined to go to a long-term facility decision was therefore made to discharge patient home with home health 5. Acute kidney injury ? Creatinine on admission was 1.05. Patient kidney function has improved to 0.66 6. Dyslipidemia ?Patient is on statin therapy, continued at home dose 7. History of peptic ulcer disease ?EGD performed on 01/04/2024 showed ulcers in the esophagus, duodenum, and gastric areas. Patient is on PPI 8. History of Takotsubo cardiomyopathy ? Remains stable 9. History of renal artery stenosis ? Remains stable 10. Paroxysmal atrial fibrillation ? Rate controlled on carvedilol and systemic anticoagulation with apixaban 11. Depression with anxiety ? Patient is on BuSpar as well as fluoxetine continue 12. Obstructive sleep apnea ? Consistent use of PAP therapy encouraged 13. Dementia ? With behavioral agitation. Stated by patient DKA. Patient is on donepezil continued 14. DVT prophylaxis ? Patient is on apixaban Time spent in the patient's overall evaluation,decision-making process, review of diagnostic data, adjustment of management, discussion with other providers, nursing nursing and ancillary staff involved in patient's care documentation, 35 minutes Medications at Discharge Home Medications apixaban 2.5 mg tablet (Eliquis) 2.5 mg PO BID blood thinner 02/14/24 ergocalciferol (vitamin D2) 1,250 mcg (50,000 unit) capsule (Vitamin D2) 1,250 mcg PO SA vitamin 04/20/24 fexofenadine 180 mg tablet 180 mg PO DAILY allergies 04/20/24 glipizide 10 mg tablet 10 mg PO DAILY diabetes 04/20/24 atorvastatin 20 mg tablet 20 mg PO QHS cholesterol #0 tabs 04/24/24 fluoxetine 40 mg capsule 40 mg PO BID #0 caps 04/24/24 gabapentin 100 mg capsule 100 mg PO TID nerve pain #0 caps 04/24/24 pantoprazole 40 mg tablet,delayed release 40 mg PO BID reflux #0 tabs 04/24/24 tolterodine 4 mg capsule,extended release 24 hr 4 mg PO DAILY #0 caps 04/24/24 acetaminophen 325 mg tablet 650 mg PO Q4H PRN Fever, pain 1-11/2105/13/24 buspirone 15 mg tablet 15 mg PO BID mental health 05/13/24 donepezil 10 mg tablet 10 mg PO DAILY memory 05/13/24 mirabegron 50 mg tablet,extended release 24 hr 50 mg PO DAILY bladder 05/13/24 Remove Patch 2 patch topical DAILY@2200 ##0 05/16/24 aluminum-mag hydroxide-simethicone 400 mg-400 mg-40 mg/5 mL oral susp (Mag-Al Plus Extra Strength) 30 ml PO Q6H PRN PRN Gastric Burning #0 mL 05/16/24 amlodipine 10 mg tablet 10 mg PO DAILY #60 tabs 05/16/24 hydroxyzine pamoate 25 mg capsule 25 mg PO TID PRN PRN severe anxiety #0 caps 05/16/24 insulin lispro 100 unit/mL subcutaneous pen (Humalog KwikPen (U-100) Insulin) See Protocol subcut ACHS #0 mL 05/16/24 lidocaine 5 % topical patch 2 patch topical DAILY #0 ea 05/16/24 melatonin 3 mg tablet 3 mg PO QHS PRN PRN Insomnia #0 tabs 05/16/24 potassium chloride 20 mEq tablet,extended release(part/cryst) 20 meq PO BIDCM #0 tabs 05/16/24 sennosides 8.6 mg-docusate sodium 50 mg tablet (Stimulant Laxative Plus) 2 tab PO BID PRN PRN Constipation #0 tabs 05/16/24 tizanidine 2 mg tablet 2 mg PO Q8H PRN PRN muscle spasms/strain #0 tabs 05/16/24 nitrofurantoin monohydrate/macrocrystals 100 mg capsule 1 cap PO Q12.TCU 05/19/24 oxybutynin chloride 15 mg tablet,extended release 24 hr PO 05/19/24 tramadol 50 mg tablet 50 mg PO Q6H PRN pain 3 days #12 tabs 05/19/24 sulfamethoxazole 800 mg-trimethoprim 160 mg tablet (Bactrim DS) 1 tab PO BID #2 tabs 09/05/24 carvedilol 6.25 mg tablet 6.25 mg PO BID #120 tabs 11/14/24 losartan 25 mg tablet 25 mg PO BID #120 tabs 11/14/24 Physical Exam Narrative GENERAL: cooperative HEENT: Left periorbital bruise normocephalic EYES; Anicteric, Normal Conjunctiva NECK; supple, normal thyroid, RESPIRATORY: Diminished to auscultation CARDIOVASCULAR: Regular S1 S2, GI: soft, normoactive bowel sounds, : No Renal angle tenderness; EXTREMITIES: No edema, no clubbing, MUSCULOSKELETAL: no muscle wasting NEURO: Awake; no lateralizing signs. SKIN: Bruising on the left flank PSYCH; Flat affect Weight / BMI Weight Weight: 65.7 kg Body Mass Index (BMI) 24.7 ABG / Lab / Microbiology Data 11/14/24 05:21 11/14/24 05:21 Laboratory: Laboratory Results - last 24 hr 11/13/24 16:24: POC Glucose 209 H 11/13/24 21:06: POC Glucose 183 H 11/14/24 05:21: WBC 8.6, RBC 3.61 L, Hgb 10.4 L, Hct 32.6 L, MCV 90.3, MCH 28.8, MCHC 31.9 L, RDW Std Deviation 45.0 H, RDW Coeff of Gerhard 13.5, Plt Count 253, MPV 9.8, Immature Gran % (Auto) 0.300, Neut % (Auto) 54.1, Lymph % (Auto) 36.5, [place] % (Auto) 5.8, Eos % (Auto) 3.1, Baso % (Auto) 0.2, Absolute Neuts (auto) 4.6, Absolute Lymphs (auto) 3.13, Nucleated RBC % 0, Sodium 143, Potassium 3.6, C hloride 112 H, Carbon Dioxide 21.3, Anion Gap 10, BUN 15, Creatinine 0.78, Estim Creat Clear Calc 60.18, Est GFR (MDRD) Non-Af 81, BUN/Creatinine Ratio 18.8, G lucose 158 H, Calcium 8.8 11/14/24 06:21: POC Glucose 153 H 11/14/24 11:03: POC Glucose 127 H Microbiology: Microbiology 11/08/24 03:15 Mucosa - Nasopharyngeal Respiratory Panel (PCR) - Final D/C Instructions Discharge Activity: Return to Normal Activity Call your doctor if you observe: Fever of 101 or Higher, Shortness of breath, Fainting spells and Chest pain DC O2, CPAP, BIPAP Needs Home O2 Discharge instructions: No Meaningful Use Info Meaningful Use Meaningful Use Diagnoses (Choose all that apply): None applicable Discharge Plan Admission Admit Date/Time: 11/08/24 01:31 Attending Provider: Coy Murcia Primary Care Provider: Rupal Boyer Consulting Providers: Coy Noel; Kotsonis,Dereck F Discharge Orders/Prescriptions Prescriptions: New carvedilol 6.25 mg tablet 6.25 mg PO BID Qty: 120 0RF Rx Instructions: must administer with a meal/food losartan 25 mg tablet 25 mg PO BID Qty: 120 0RF Continued Eliquis 2.5 mg tablet 2.5 mg PO BID glipizide 10 mg tablet 10 mg PO DAILY fexofenadine 180 mg tablet 180 mg PO DAILY ergocalciferol (vitamin D2) [Vitamin D2] 1,250 mcg (50,000 unit) capsule 1,250 mcg PO SA Rx Instructions: TAKES EVERY WEEK ON SUNDAY AT BEDTIME fluoxetine 40 mg Capsule 40 mg PO BID Qty: 0 0RF atorvastatin 20 mg Tablet 20 mg PO QHS Qty: 0 0RF tolterodine 4 mg Capsule,Extended Release 24hr 4 mg PO DAILY Qty: 0 0RF pantoprazole 40 mg Tablet,Delayed Release (Dr/Ec) 40 mg PO BID Qty: 0 0RF gabapentin 100 mg Capsule 100 mg PO TID Qty: 0 0RF donepezil 10 mg tablet 10 mg PO DAILY buspirone 15 mg tablet 15 mg PO BID mirabegron 50 mg tablet extended release 24 hr 50 mg PO DAILY acetaminophen 325 mg Tablet 650 mg PO Q4H PRN (Reason: Fever, pain -11/21) lidocaine 5 % Adhesive Patch,Medicated 2 patch topical DAILY Qty: 0 0RF Protocol: *Topical Application Instructions APPLICATION INSTRUCTIONS: back, s/p fall insulin lispro [Humalog KwikPen Insulin] 100 unit/mL Insulin Pen See Protocol subcut ACHS Qty: 0 0RF Protocol: 3. Sliding Scale Insulin Med Dosing Condition: 150-189 mg/dl = 1 unit Condition: 190-229 mg/dl = 2 units Condition: 230-269 mg/dl = 3 units Condition: 270-309 mg/dl = 4 units Condition: 310-349 mg/dl = 5 units Condition: 350-399 mg/dl = 6 units Condition: 400-449 mg/dl = 7 units Condition: Greater than 449 call physician Protocol Text: - Use for Total Daily Dose of Insulin 37-55 units - Obsese, infected, or steroid patients MEDIUM DOSING ALGORITHIM tizanidine 2 mg Tablet 2 mg PO Q8H PRN PRN (Reason: muscle spasms/strain) Qty: 0 0RF sennosides-docusate sodium [Stimulant Laxative Plus] 8.6-50 mg Tablet 2 tab PO BID PRN PRN (Reason: Constipation) Qty: 0 0RF melatonin 3 mg Tablet 3 mg PO QHS PRN PRN (Reason: Insomnia) Qty: 0 0RF potassium chloride 20 mEq Tablet,Er Particles/Crystals 20 meq PO BIDCM Qty: 0 0RF alum-mag hydroxide-simeth [Mag-Al Plus Extra Strength] 400-400-40 mg/5 mL Suspension 30 ml PO Q6H PRN PRN (Reason: Gastric Burning) Qty: 0 0RF hydroxyzine pamoate 25 mg Capsule 25 mg PO TID PRN PRN (Reason: severe anxiety) Qty: 0 0RF Remove Patch 2 patch topical DAILY@2200 Qty: 0 0RF amlodipine 10 mg tablet 10 mg PO DAILY Qty: 60 0RF oxybutynin chloride 15 mg tablet extended release 24hr PO nitrofurantoin monohyd/m-cryst 100 mg capsule 1 cap PO Q12.TCU tramadol 50 mg tablet 50 mg PO Q6H PRN (Reason: pain) 3 Days Qty: 12 0RF sulfamethoxazole-trimethoprim [Bactrim DS] 800-160 mg tablet 1 tab PO BID Qty: 2 0RF Discontinued carvedilol 3.125 mg Tablet 3.125 mg PO BIDCM Qty: 0 0RF Referrals / Follow Up: Rupal Boyer, SECURITY PATROL OFFICER-C [Primary Care Provider, Family Practice] - Within 1 Week Disposition Disposition (needs filled in before D/C Order can be placed): Home Health Service Charges/Coding Visit Charges Inpatient E&M: 47567 Disch Hosp >30min
--- NOTE | 2024-11-14 16:15 | PHA.DC_ITS ---
Pharmacy [facility] Counseling Pharmacy Service has performed discharge medication reconciliation and counseling for this patient. 1. LOSARTAN 25MG PO BID 2. CARVEDILOL INCREASED TO 6.25MG The patient's discharge medication list was reviewed for discrepancies and discrepancies were resolved. The patient was counseled on the following discharge medications and changes in medications for homegoing were reviewed. The Reason for Use, instructions for use, and potential side effects were reviewed for all new medications. The patient's questions regarding all of their medications were answered. The patient was able to verbally demonstrate an understanding of their discharge medications. The patient demonstrated some understanding but would benefit from further education and reinforcement. The patient was not able to adequately demonstrate understanding.
--- NOTE | 2024-11-14 16:15 | PHA.DC.MC.R ---
Pharmacy [facility] Counseling Pharmacy Service has performed discharge medication reconciliation and counseling for this patient. 1. LOSARTAN 25MG PO BID 2. CARVEDILOL INCREASED TO 6.25MG The patient's discharge medication list was reviewed for discrepancies and discrepancies were resolved. The patient was counseled on the following discharge medications and changes in medications for homegoing were reviewed. The Reason for Use, instructions for use, and potential side effects were reviewed for all new medications. The patient's questions regarding all of their medications were answered. The patient was able to verbally demonstrate an understanding of their discharge medications. Medications at Discharge Home Medications apixaban 2.5 mg tablet (Eliquis) 2.5 mg PO BID blood thinner 02/14/24 ergocalciferol (vitamin D2) 1,250 mcg (50,000 unit) capsule (Vitamin D2) 1,250 mcg PO SA vitamin 04/20/24 fexofenadine 180 mg tablet 180 mg PO DAILY allergies 04/20/24 glipizide 10 mg tablet 10 mg PO DAILY diabetes 04/20/24 atorvastatin 20 mg tablet 20 mg PO QHS cholesterol #0 tabs 04/24/24 fluoxetine 40 mg capsule 40 mg PO BID #0 caps 04/24/24 gabapentin 100 mg capsule 100 mg PO TID nerve pain #0 caps 04/24/24 pantoprazole 40 mg tablet,delayed release 40 mg PO BID reflux #0 tabs 04/24/24 tolterodine 4 mg capsule,extended release 24 hr 4 mg PO DAILY #0 caps 04/24/24 acetaminophen 325 mg tablet 650 mg PO Q4H PRN Fever, pain 1-11/2105/13/24 buspirone 15 mg tablet 15 mg PO BID mental health 05/13/24 donepezil 10 mg tablet 10 mg PO DAILY memory 05/13/24 mirabegron 50 mg tablet,extended release 24 hr 50 mg PO DAILY bladder 05/13/24 Remove Patch 2 patch topical DAILY@2200 ##0 05/16/24 aluminum-mag hydroxide-simethicone 400 mg-400 mg-40 mg/5 mL oral susp (Mag-Al Plus Extra Strength) 30 ml PO Q6H PRN PRN Gastric Burning #0 mL 05/16/24 amlodipine 10 mg tablet 10 mg PO DAILY #60 tabs 05/16/24 hydroxyzine pamoate 25 mg capsule 25 mg PO TID PRN PRN severe anxiety #0 caps 05/16/24 lidocaine 5 % topical patch 2 patch topical DAILY #0 ea 05/16/24 melatonin 3 mg tablet 3 mg PO QHS PRN PRN Insomnia #0 tabs 05/16/24 potassium chloride 20 mEq tablet,extended release(part/cryst) 20 meq PO BIDCM #0 tabs 05/16/24 sennosides 8.6 mg-docusate sodium 50 mg tablet (Stimulant Laxative Plus) 2 tab PO BID PRN PRN Constipation #0 tabs 05/16/24 tizanidine 2 mg tablet 2 mg PO Q8H PRN PRN muscle spasms/strain #0 tabs 05/16/24 nitrofurantoin monohydrate/macrocrystals 100 mg capsule 1 cap PO Q12.TCU 05/19/24 oxybutynin chloride 15 mg tablet,extended release 24 hr PO 05/19/24 tramadol 50 mg tablet 50 mg PO Q6H PRN pain 3 days #12 tabs 05/19/24 sulfamethoxazole 800 mg-trimethoprim 160 mg tablet (Bactrim DS) 1 tab PO BID #2 tabs 09/05/24 carvedilol 6.25 mg tablet 6.25 mg PO BID #120 tabs 11/14/24 losartan 25 mg tablet 25 mg PO BID #120 tabs 11/14/24
== END 2024-11-14 16:20 | disposition home or self-care (01) | DRG 637 ==
LOC: ED 23:19 → ICU 11-08 02:18 → MS3 11-09 12:35
PROVIDERS: Family Medicine; Admitting Provider Internal Medicine; Emergency Provider Student in an Organized Health Care Education/Training Program; PCP Nurse Practitioner Family; Visit Provider Internal Medicine
DX: E11.10 Type 2 diabetes mellitus with ketoacidosis without coma (principal); G93.41 Metabolic encephalopathy; F02.811 Dementia in other diseases classified elsewhere, unspecified severity, with agitation; N17.9 Acute kidney failure, unspecified; I16.0 Hypertensive urgency; I48.0 Paroxysmal atrial fibrillation; G31.9 Degenerative disease of nervous system, unspecified; F31.9 Bipolar disorder, unspecified; E11.43 Type 2 diabetes mellitus with diabetic autonomic (poly)neuropathy; I25.10 Atherosclerotic heart disease of native coronary artery without angina pectoris; I25.2 Old myocardial infarction; K44.9 Diaphragmatic hernia without obstruction or gangrene; E78.5 Hyperlipidemia, unspecified; K21.9 Gastro-esophageal reflux disease without esophagitis; J30.2 Other seasonal allergic rhinitis; G47.33 Obstructive sleep apnea (adult) (pediatric); I10 Essential (primary) hypertension; F41.9 Anxiety disorder, unspecified; Z87.891 Personal history of nicotine dependence; Z79.01 Long term (current) use of anticoagulants; Z79.899 Other long term (current) drug therapy
CPT/HCPCS: 36415; 36600; 51702; 70450; 70551; 71046; 72125; 74177; 80048; 80051; 80053; 80061; 80307; 81001; 82010; 82077; 82140; 82607; 82803; 82962; 83605; 83690; 83735; 84100; 84443; 84484; 85025; 87633; 93005; 97162; 97166; 97530; 97535; 99285; A9581; Q9967; A4216; J2405

== ENCOUNTER → 2024-12-02 | Outpatient (CLI) | payer MEDICARE, MEDICAID, SELFPAY ==
--- NOTE | 2024-12-02 11:22 | RAD_ITS ---
PROCEDURE: HIPS B/L MIN 2 VIEWS W/ PELVIS 12/02/2024 REASON FOR EXAM: PAIN, FALL TECHNIQUE: Procedure Code: [id number] Modality: DX Procedure: HIPS B/L MIN 2 VIEWS W/ PELVIS Laterality: FINDINGS: Right femoral internal fixation. Left hip arthroplasty. Degenerative changes of the right hip. Degenerative changes of the partially visualized spine. L5 vertebroplasty. No evidence of new acute fracture. RAD/Hips B/L min 2 views w/ Pelvis IMPRESSION: No acute abnormality. Reading Location: [id number]
--- NOTE | 2024-12-02 11:22 | RAD_ITS ---
PROCEDURE: L/S SPINE MIN 4 VIEWS 12/02/2024 REASON FOR EXAM: PAIN, FALL TECHNIQUE: Procedure Code: [id number] Modality: DX Procedure: L/S SPINE MIN 4 VIEWS COMPARISON: None FINDINGS: The bones are diffusely demineralized. No acute fracture noted. Chronic compression fractures noted throughout the lumbar spine with previous vertebroplasty at L5. There is anatomic alignment in the lumbar spine in the lateral view with mild levoscoliosis in the lumbar spine Diffuse vascular calcifications present, no aortic aneurysm noted. Surgical hardware in the right femur and replaced left hip joint free of complication RAD/L/S Spine Min 4 Views IMPRESSION: Diffuse osteopenia with multilevel degenerative changes and chronic compression fractures noted throughout the lumbar spine. No acute findings Reading Location: [id number]
--- OUTSIDE RECORDS SUMMARY | 2024-12-02 18:58 | XMS RPT_ITS | CCD ---
Author Organization 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 Cici Calderon Primary Care Provider 1([facility])[phone] Dr. Cici Calderon Referring Provider 1([facility])[phone] DIDIER Fowler Attending Provider 1([facility])[phone] Dr. Ethan Hayes Attending Provider 1([facility])[phone] ORESTES Boyer Primary Care Provider 1([facility])[phone] Dr. Nico Arce Emergency Provider 1([facility])[phone] Dr. Home Valverde Admit Provider 1([facility])[phone] Home Valverde Referring Provider 1([facility])[phone] Dr. Home Valverde Other Provider 1([facility])[phone] John Short Attending Provider 1([facility])[phone] Dr. John Short Other Provider 1([facility])[phone] Home Valverde Attending Provider 1([facility])[phone] Dr. Kanwal Aguilar Attending Provider 1([facility])[phone] Dr. Tamiko Quigley Attending Provider 1([facility])[phone] Tamiko Quigley Other Provider Dr. Josue Ivan Other Provider 1([facility])[phone] Josephine Lutz Other Provider 1([facility])[phone] Dr. Kassandra Fountain Other Provider Dr. Gerry Austin Other Provider Dr. Regina Oden Other Provider Dr. Home Miller Attending Provider Dr. Home Miller Other Provider Dr. Filemon Coffman Other Provider Dr. Atul Quezada Other Provider Dr. Dann Linn Other Provider Dr. Floyd Kelley Other Provider Unavailab lance Wyatt TRAUMA COORDINATOR, TRAUMA COORDINATOR-C Cindy Other Provider Dr. Dann Linn Attending Provider Dr. Prem Toro Other Provider Cici Calderon MD Primary Care Provider Dr. Home Valverde Referring Provider Cici Calderon Primary Care Provider Cici Calderon Primary Care Provider [phone] ESTEBAN HAWLEY Attending Unavailable ESTEBAN HAWLEY Admitting Unavailable NICOLA ADHIKARI Consulting Unavailable YULIA WILFRID Consulting Unavailable JOHANNE DEUTSCH Consulting Unavailable Unavailable Primary Care Provider Unavailabl e Rudy Salazar Primary Care Provider CRISTOPHER Boyer-Madelyn Grant Primary Care Provider Dr. Marcos Hoffman Emergency Provider [phone] Anuja Noel Admit Provider UnavailDr. Anuja Chan Attending Provider Unavail able Dr. Anuja Noel Other Provider Unavailabl e Dr. Tamiko Quigley Other Provider Dr. Tamiko Quigley Attending Provider FriendDr. White Attending Provider Dr. Christopher Huang Other Provider Dr. Anuja Murcia Attending Provider Unavailable Dr. Anuja Murcia Other Provider Unavailable Dr. Miguel Chapman Other Provider Cici Calderon Primary Care Provider [phone] CHANDAN, RATHNA Attending Unavailable CHANDAN, RATHNA Admitting Unavailable ADHIKARI, NICOLA Consulting Unavailable YULIA, WILFRID J Consulting Unavailable IVA, JOHANNE Consulting Unavailable NONE, PCP Referring Unavailable KVNG, CICI Primary Care Unavailable KVNG, CICI Primary Care Unavailable SOFIA SENA Admitting Unavailable ANNA, PETRA Consulting Unavailable MIGUEL CHAPMAN Attending Unavailable LATAH DAVIS Consulting Unavailable WEINER, CICI Attending Unavailable KVNG, CICI Primary Care Unavailable NICOLA ADHIKARI Attending Unavailable SHARLA, RUDY Primary Care Unavailable PHYLLIS GUEVARA Referring Unavailable KVNG, CICI Primary Care Unavailable YIFAN LOZANO Referring Unavailable SHARLA, RUDY Primary Care Unavailable WEINER, CICI Referring Unavailable KVNG, CICI Primary Care Unavailable ANUJA WOLFE Attending Unavailable ANUJA WOLFE Attending Unavailable JOHN OVIEDO Attending Unavailable NORBERT, PHYLLIS Attending Unavailable KVNG, CICI Primary Care Unavailable Sharla, TRAUMA COORDINATOR-C Rudy Primary Care Provider [phone] Dr. Marcos Hoffman Emergency Provider [phone] Anuja Noel Admit Provider UnavailDr. Anuja Chan Attending Provider Unavail able Dr. Anuja Noel Other Provider Unavailabl Dr. Tamiko Painter Other Provider Dr. Tamiko Quigley Attending Provider Dr. Christopher Huang Attending Provider Dr. Christopher Huang Other Provider Dr. Anuja Murcia Referring Provider Unavailable Dr. Anuja Murcia Attending Provider Unavailable Dr. Anuja Murcia Other Provider Unavailable Dr. Miguel Chapman Other Provider Sharla TRAUMA COORDINATOR-C, [place] Primary Care Provider [phone] Dr. Yifan Zepeda DO Emergency Provider Lauren WRIGHT, Dr. Kanwal Hernandez Admit Provider Dr. Kanwal Aguilar MD Other Provider Dr. Zahra Palacio MD Attending Provider Tony WRIGHT, Dr. Moreno Other Provider [phone] Freddy WRIGHT, Dr. Long Attending Provider Aakash WRIGHT, Dr. Ruano Other Provider China WRIGHT, Dr. Kwong Other Provider Augustus WRIGHT, Dr. Colbert Other Provider Damien ESQUIVEL, Dr. Pollard Other Provider Hemant WRIGHT, Dr. Anuja Astudillo Other Provider [phone] Vanessa WRIGHT, Dr. Zaidi Other Provider [phone] Ata WRIGHT, Dr. Valle Other Provider [phone] Chadd WRIGHT, Dr. Foss Other Provider [phone] Sandy WRIGHT, Dr. Pizano Other Provider [phone] Vince WRIGHT, Dr. Tidwell Other Provider [phone] Lawson WRIGHT, Dr. Cummings Other Provider Corie WRIGHT, Dr. Richards Other Provider Unavailabl prateek Palm MD, Dr. Dan Other Provider Alaina WRIGHT, Dr. Osborne Other Provider [phone] Delphine WRIGHT, Dr. Alegria Other Provider Natalya ESQUIVEL, Dr. Nash Other Provider [phone] Queta WRIGHT, Dr. Shields Other Provider [phone] Omar ESQUIVEL, Dr. Navarrete Other Provider Sumit WRIGHT, Dr. Pena Other Provider Travis WRIGHT, Dr. Florez Other Provider Dr. Zahra Palacio MD Other Provider Lauren WRIGHT, Dr. Kanwal Hernandez Referring Provider Dr. Atul Quezada DO Attending Provider Dr. Zahra Palacio MD Referring Provider Dr. Christopher Huang DO Attending Provider Justice WRIGHT, Dr. Mack Attending Provider Denise WRIGHT, Dr. Thomason Referring Provider Sharla TRAUMA COORDINATOR-C, [place] Referring Provider [phone] Claude WRIGHT, Dr. Walsh Emergency Provider Dann ESQUIVEL, Dr. Morrison Admit Provider Dann ESQUIVEL, Dr. Morrison Other Provider Kellie WRIGHT, Dr. Jordana Cooney Attending Provider Dann ESQUIVEL, Dr. Morrison Attending Provider Stefan WRIGHT, Dr. Rodríguez Other Provider Kellie WRIGHT, Dr. Jordana Cooney Referring Provider Kellie WRIGHT, Dr. Jordana Cooney Other Provider Mohan WRIGHT, Dr. Diaz Emergency Provider [phone] Lauren WRIGHT, Dr. Kanwal Hernandez Attending Provider Deja ESQUIVEL, Dr. Paiz Attending Provider Chris WRIGHT, Dr. Warren Other Provider Anisha WRIGHT, Dr. Moran Other Provider Deja ESQUIVEL, Dr. Paiz Other Provider Tony WRIGHT, Dr. Moreno Attending Provider Sharla TRAUMA COORDINATOR-C, [place] Primary Care Provider Dr. Christopher Huang DO Attending Provider Aakash WRIGHT, Dr. Ruano Other Provider China WRIGHT, Dr. Kwong Other Provider Augustus WRIGHT, Dr. Colbert Other Provider Dr. Atul Quezada DO Other Provider Hemant WRIGHT, Dr. Anuja Astudillo Other Provider Vanessa WRIGHT, Dr. Zaidi Other Provider Ata WRIGHT, Dr. Valle Other Provider [phone] hCadd WRIGHT, Dr. Foss Other Provider Sandy WRIGHT, Dr. Pizano Other Provider [phone] Vince WRIGHT, Dr. Tidwell Other Provider Lawson WRIGHT, Dr. Cummings Other Provider Corie WRIGHT, Dr. Richards Other Provider Unavailabl prateek Palm MD, Dr. Dan Other Provider Alaina WRIGHT, Dr. Osborne Other Provider [phone] Delphine WRIGHT, Dr. Alegria Other Provider Natalya ESQUIVEL, Dr. Nash Other Provider Queta WRIGHT, Dr. Shields Other Provider Omar ESQUIVEL, Dr. Navarrete Other Provider Sumit WRIGHT, Dr. Pena Other Provider Travis WRIGHT, Dr. Florez Other Provider Dr. Atul Quezada DO Attending Provider Lauren WRIGHT, Dr. Kanwal Hernandez Admit Provider Lauren WRIGHT, Dr. Kanwal Hernandez Other Provider Lauren WRIGHT, Dr. Kanwal Hernandez Referring Provider Ardia Montenegro MD Emergency Provider Divina WRIGHT, Dr. Cespedes Attending Provider Unavaila ble Divina WRIGHT, Dr. Cespedes Other Provider Unavailable Lorena WRIGHT, Dr. Barba Other Provider Kvng WRIGHT, Cici Ruano Primary Care Provider Sharla TRAUMA COORDINATOR, Rudy Primary Care Provider Sharla TRAUMA COORDINATOR-C, Rudy Primary Care Provider Lan WRIGHT, Adria Emergency Provider Lauren WRIGHT, Dr. Kanwal Hernandez Admit Provider Dr. Kanwal Aguilar MD Attending Provider Dr. Kanwal Aguilar MD Other Provider [phone] Divina WRIGHT, Dr. Cespedes Attending Provider Unavaila ble Divina WRIGHT, Dr. Cespedes Other Provider Unavailable Lorena WRIGHT, Dr. Barba Other Provider Claude WRIGHT, Dr. Walsh Attending Provider Claude WRIGHT, Dr. Walsh Referring Provider Claude WRIGHT, Dr. Walsh Emergency Provider Leif ESQUIVEL, Dr. Petersen Attending Provider Leif ESQUIVEL, Dr. Petersen Emergency Provider Sharla TRAUMA COORDINATOR-C, Rudy Referring Provider Reina ESQUIVEL, Dr. White Attending Provider Noel DO, Dr. Cespedes Admit Provider Unavail able Noel DO, Dr. Cespedes Attending Provider Unav ailable JENN, JEROMY DUNLAP Attending Unavaila ble MASCI, REGINA A Referring Unavailable SHARLA, RUDY Primary Care Unavailable MASCI, REGINA A Attending Unavailable SHARLA, RUDY Primary Care Unavailable SHARLA, RUDY Primary Care Unavailable MASCI, REGINA A Referring Unavailable SHARLA, RUDY Primary Care Unavailable Sharla TRAUMA COORDINATOR-C, Rudy Primary Care Provider Claude WRIGHT, Dr. Walsh Emergency Provider de Kevin ESQUIVEL, Dr. Cepsedes Admit Provider Unavail able Noel DO, Dr. Cespedes Other Provider Unavail able Kellie WRIGHT, Dr. Jordana Cooney Attending Provider Muna WRIGHT, Dr. Amaro Other Provider Noel DO, Dr. Cespedes Referring Provider Unav sherrellable Aakash WRIGHT, Dr. Ruano Other Provider China WRIGHT, Dr. Kwong Other Provider Augustus WRIGHT, Dr. Colbert Other Provider [phone] Atul Quezada DO Attending Provider Dr. Atul Quezada DO Other Provider Hemant WRIGHT, Dr. Anuja Astudillo Other Provider Vanessa WRIGHT, Dr. Zaidi Other Provider [phone] Ata WRIGHT, Dr. Valle Other Provider [phone] Chadd WRIGHT, Dr. Foss Other Provider [phone] Sandy WRIGHT, Dr. Pizano Other Provider [phone] Vince WRIGHT, Dr. Tidwell Other Provider [phone] Stefan WRIGHT, Dr. Rodríguez Other Provider Lawson WRIGHT, Dr. Cummings Other Provider Corie WRIGHT, Dr. Richards Other Provider Unavailabl prateek Perez MD, Dr. Warren Other Provider [phone] Néstor WRIGHT, Dr. Dan Other Provider [phone] Alaina WRIGHT, Dr. Osborne Other Provider [phone] Delphine WRIGHT, Dr. Alegria Other Provider Natalya ESQUIVEL, Dr. Nash Other Provider Queta WRIGHT, Dr. Shields Other Provider [phone] Anisha WRIGHT, Dr. Moran Other Provider [phone] Omar ESQUIVEL, Dr. Navarrete Other Provider Sumit WRIGHT, Dr. Pena Other Provider Travis WRIGHT, Dr. Florez Other Provider Klelie WRIGHT, Dr. Jordana Cooney Other Provider Sharla TRAUMA COORDINATOR-C, Rudy Referring Provider Dr. Christopher Huang DO Attending Provider Sharla TRAUMA COORDINATOR-C, Rudy Primary Care Physician Claude WRIGHT, Dr. Walsh Emergency Department Phys ician Dr. Anuja Noel DO Admitting Physician Ernestine vailable Noel DO, Dr. Cespedes Nurse Practitioner Unav ailable Kellie WRIGHT, Dr. Jordana Cooney Attending Physician Muna WRIGHT, Dr. Amaro Nurse Practitioner [phone], [address] Cespedes Referring Provider Latasha Finn MD, Dr. Ruano Nurse Practitioner China WRIGHT, Dr. Kwong Nurse Practitioner Augustus WRIGHT, Dr. Colbert Nurse Practitioner Damien ESQUIVEL, Dr. Pollard Attending Physician Damien ESQUIVEL, Dr. Pollard Nurse Practitioner Hemant WRIGHT, Dr. Anuja Astudillo Nurse Practitioner [phone] Vanessa WRIGHT, Dr. Zaidi Nurse Practitioner Ata WRIGHT, Dr. Valle Nurse Practitioner [phone] Chadd WRIGHT, Dr. Foss Nurse Practitioner Sandy WRIGHT, Dr. Pizano Nurse Practitioner [phone] Vince WRIGHT, Dr. Tidwell Nurse Practitioner [phone] Stefan WRIGHT, Dr. Rodríguez Nurse Practitioner [phone] Lawson WRIGHT, Dr. Cummings Nurse Practitioner [phone] Corie WRIGHT, Dr. Richards Nurse Practitioner Unavail scott Perez MD, Dr. Warren Nurse Practitioner [phone] Néstor WRIGHT, Dr. Dan Nurse Practitioner [phone] Alaina WRIGHT, Dr. Osborne Nurse Practitioner Delphine WRIGHT, Dr. Alegria Nurse Practitioner [phone] Natalya ESQUIVEL, Dr. Nash Nurse Practitioner Queta WRIGHT, Dr. Shields Nurse Practitioner [phone] Anisha WRIGHT, Dr. Moran Nurse Practitioner Omar ESQUIVEL, Dr. Navarrete Nurse Practitioner [phone] Sumit WRIGHT, Dr. Pena Nurse Practitioner [phone] Travis WRIGHT, Dr. Florez Nurse Practitioner [phone] Kellie WRIGHT, Dr. Jordana Cooney Nurse Practitioner Sharla TRAUMA COORDINATOR-C, Rudy Referring Provider [phone] Reina DO, Dr. White Attending Physician [phone] Griselda WRIGHT, Dr. Sun Emergency Department Physici an Unavailable Divina WRIGHT, Dr. Cespedes Attending Physician Unavail able Mikael WRIGHT, Dr. Dereck Arrington Nurse Practitioner Mikael WRIGHT, Dr. Dereck Arrington Attending Physician Divina WRIGHT, Dr. Cespedes Nurse Practitioner Unavaila Alden Moran Consulting Unavailable Atul Quezada Attending Unavailable Kellie, Jordana Cooney Referring Unavailable Tamiko Quigley Admitting Unavailable Sharla, Rudy Primary Care Unavailable Varghese Atkinson Consulting Unavailable Filemon Coffman Consulting Unavailable Atul Quezada Consulting Unavailable Anuja Marcos Consulting Unavailable Dejuan Mendez Consulting Unavailable Leonard Berumen Consulting Unavailable Prudence Florentino Consulting UnavailHarinder Bhardwaj Consulting Unavailable Yaw Clarke Consulting Unavailable Marcos Aviles Consulting Unavailable Zoila Pathak Consulting Unavailable Susie Fontenot Consulting Unavailable Sonia Palmm Consulting Unavailable Dylon Foley Consulting Unavailable Raji Akers Consulting Unavailable Saad Hoang Consulting Unavailable Cornelius Birch Consulting Unavailable Landon Nelson Consulting Unavailable Jean Arana Consulting Unavailable Gautam Robles Consulting Unavailable Tamiko Quigley Consulting Unavailable Kellie, Jordana Ivet Consulting Unavailable Jordana Hopkins Attending Unavailable Zahra Palacio Attending Unavailable Sharla, Rudy Primary Care Unavailable White, Kanwal L Admitting Unavailable White, Kanwal L Consulting Unavailable Nagajothi, Nagapradee Consulting Unavailabl e Sharla, Rudy Primary Care Unavailable John Short Attending Unavailable White, Kanwal L Consulting Unavailable White, Kanwal L Admitting Unavailable White, Kanwal L Admitting Unavailable Sharla, Rudy Primary Care Unavailable Lauren, Kanwal L Consulting Unavailable Anuja Murcia Attending Unavailable LorenaJameson plaza Consulting Unavailable Kanwal Aguilar L Attending Unavailable Sharla, Rudy Primary Care Unavailable Tamiko Quigley Attending Unavailable Atul Quezada Attending Unavailable Tiffanie Jimenez Consulting Unavailabl e [facility] Primary Care Unavailable White, Kanwal L Admitting Unavailable Lauren, Kanwal L Referring Unavailable Alden Finn Consulting Unavailable Atkinson, Varghese Consulting Unavailable Filemon Coffman Consulting Unavailable Atul Quezada Consulting Unavailable Anuja Marcos Consulting Unavailable Matheis, Edkimberly Consulting Unavailable Ata, Leonard Consulting Unavailable Habtegebriel, Prudence Consulting Unavailab le Dand, Harinder Consulting Unavailable Clarke, Yaw Consulting Unavailable Lawson, Zoila Consulting Unavailable Aljundi, Lamia Consulting Unavailable Néstor, Sy Consulting Unavailable Irukulla, Dylon Consulting Unavailable Delphine, Raji Consulting Unavailable Dhesi, Saad Consulting Unavailable Cornelius Birch Consulting Unavailable Chentenstrsophia, Landon Consulting Unavailable Usmit, Jean Consulting Unavailable Gautam Robles Consulting Unavailable Kanwal Aguilar L Consulting Unavailable Zahra Palacio Consulting Unavailable Zahra Palacio Attending Unavailable Zahra Palacio Referring Unavailable Christopher Huang Attending Unavailable Kanwal Aguilar Attending Unavailable Alden Finn Consulting Unavailable White, Kanwal L Admitting Unavailable Atul Quezada Attending Unavailable Lauren, Kanwal L Referring Unavailable [facility] Primary Care Unavailable Atkinson, Varghese Consulting Unavailable Filemon Coffman Consulting Unavailable Atul Quezada Consulting Unavailable Anuja Marcos Consulting Unavailable Leleeis, Dejuan Consulting Unavailable Ata, Leonard Consulting Unavailable Habtegebriel, Prudence Consulting Unavailab le Dand, Harinder Consulting Unavailable Clarke, Yaw Consulting Unavailable Marcos Aviles Consulting Unavailable Lawson, Zoila Consulting Unavailable Aljundi, Lamia Consulting Unavailable Perez, Briana Consulting Unavailable Néstor, Sy Consulting Unavailable Irukulla, Dylon Consulting Unavailable Delphine, Raji Consulting Unavailable Dhesi, Saad Consulting Unavailable Birch, Sujoy Consulting Unavailable Luisa Lancaster Consulting Unavailable Fernstrom, Landon Consulting Unavailable Sumit, Jean Consulting Unavailable Gautam Robles Consulting Unavailable Lauren, Kanwal L Consulting Unavailable John Short Consulting Unavailable Christopher Huang Attending Unavailable [facility] Primary Care Unavailable [facility] Referring Unavailable Jordana Hopkins Attending Unavailable [facility] Primary Care Unavailable Anuja Noel Admitting Unavailable Anuja Noel Consulting Unavailable Prem Toro Consulting Unavailable Jordana Hopkins Ivet Consulting Unavailable Jordana Hopkins Attending Unavailable Sharla, Rudy Primary Care Unavailable Anuja Noel Admitting Unavailable Anuja Noel Consulting Unavailable Prem Toro Consulting Unavailable John Short Attending Unavailable Nico Arce Referring Unavailable Sharla, Rudy Primary Care Unavailable Nico Arce Attending Unavailable White, Kanwal L Admitting Unavailable White Kanwal L Attending Unavailable Sharla, Rudy Primary Care Unavailable Kanwal Aguilar L Consulting Unavailable Anuja Murcia Attending Unavailable Anuja Murcia Consulting Unavailable White, Kanwal L Admitting Unavailable Sharla, Rudy Primary Care Unavailable Kanwal Aguilar L Consulting Unavailable Anuja Murcia Attending Unavailable Jameson Carrillo Consulting Unavailable Anuja Murcia Consulting Unavailable Alden Finn Consulting Unavailable Anuja Noel Attending Unavailable Varghese Atkinson Consulting Unavailable Filemon Coffman Consulting Unavailable Atul Quezada Consulting Unavailable Anuja Marcos Consulting Unavailable Dejuan Mendez Consulting Unavailable Leonard Berumen Consulting Unavailable Prudence Florentino Consulting UnavailHarinder Bhardwja Consulting Unavailable Yaw Clarke Consulting Unavailable Marcos Aviles Consulting Unavailable Zoila Pathak Consulting Unavailable Susie Fontenot Consulting Unavailable Briana Perez Consulting Unavailable Sy Palm Consulting Unavailable Dylon Foley Consulting Unavailable Raji Akers Consulting Unavailable Saad Hoang Consulting Unavailable Cornelius Birch Consulting Unavailable Luisa Lancaster Consulting Unavailable Landon Nelson Consulting Unavailable Jean Arana Consulting Unavailable Gautam Robles Consulting Unavailable Atul Quezada Attending Unavailable Anuja Noel Referring Unavailable Sharla, Rudy Primary Care Unavailable Ethan Hayes Attending Unavailable Tiffanie Jimenez Attending Unavailabl e Sharla, Rudy Primary Care Unavailable Christopher Huang Attending Unavailable Zahra Palacio Referring Unavailable Sharla, Rudy Primary Care Unavailable Sharla, Rudy Primary Care Unavailable Paddy Walker Referring Unavailable Martina Rendon Attending Unavailable FriendChristopher Attending Unavailable Sharla, Rudy Primary Care Unavailable Sharla, Rudy Referring Unavailable Friend, Christopher Attending Unavailable Sharla, Rudy Primary Care Unavailable Sharla, Rudy Referring Unavailable Sharla, Rudy Primary Care Unavailable Anuja Noel Admitting Unavailable Anuja Noel Consulting Unavailable Anuja Murcia Attending Unavailable Dereck Youssef Consulting Unavailable Jodrana Hopkins Attending Unavailable Tamiko Quigley Consulting Unavailable Tamiko Quigley Admitting Unavailable Sharla, Rudy Primary Care Unavailable Sharla, Rudy Primary Care Unavailable Nicola Yadav Attending Unavailable Anuja Noel Consulting Unavailable Anuja Noel Admitting Unavailable Anuja Murcia [facility] Unavailable Dereck Youssef Consulting Unavailable Anuja Murcia Consulting Unavailable Anuja Noel Attending Unavailable Dereck Youssef Attending Unavailable Allergies Allergy Classification Reported Allergen(s) Allergy Type Date of Onset Reaction(s) Facility (15 sources) Acetaminophen / HYDROcodone; Translations: [HYDROCODONE-ACET AMINOPHEN] Drug Allergy 0 Itching [facility] Repository (15 sources) atorvastatin; Translations: [ATORVASTATIN] Drug Allergy 8 [facility] Repository (20 sources) Codeine; Translations: [CODEINE] Drug Allergy 7 Intolerance [facility] Repository (20 sources) Naproxen; Translations: [NAPROXEN] Drug Allergy 8 Intolerance [facility] Comment on above: "makes me jittery" (20 sources) fentaNYL Drug Allergy 3 confusion [facility] Comment on above: confusion x3 days (20 sources) Morphine Drug Allergy 3 Other [facility] Comment on above: hx drug addiction, n o morphine to be given (20 sources) Non-steroidal anti-inflammatory agent Drug Intolerance 7 Rash [facility] (1 source) fentaNYL Drug Allergy 5 [facility] Repository (1 source) Morphine Drug Allergy 5 [facility] Rep[facility] Medications Current Medications Medication Drug [...] in 24 hours. Start: 02-15-2019 End: 07-06-2022 Start: 02-15-2019 End: 07-06-2022 take 1-1 tablets by mouth every six hours as needed for pain Acetaminophen 325 MG tablet Discontinued 650 mg PO EVERY 6 HOURS NEEDED as needed for Pain /fever 0 February 15, 2019 1:00am July 06, 2022 10:43am Start: 02-15-2019 End: 07-06-2022 take 2 tablets by mo [facility] every eight hours acetaminophen (TYLENOL) 325 mg tablet Take 500 mg by mouth every 8 hours. 2 tablets Active acetaminophen (T ylenol Extra Strength) 500 MG tablet Take by mouth. 0 Active take 2 tablets by mo [facility] every six hours as needed acetaminophen (TYLENOL) [...] Comment on above: Take 1 tablet by [facility] twice daily as needed for Pain for up to 30 days. albuterol 0.833 mg/ml / ipratropium bromide 0.167 mg/ml inhalation solution (18 sources) Anticholinergic, beta2-Adrenergic Agonist Start: 01-01-2023 End: 01-01-2024 Start: 12-23-2022 End: 01-01-2024 ipratropium-albuterol (Duo-N eb) 0.5-2.5 mg/3 mL nebulizer solution Take 3 mL by nebulization 3 times daily as needed for wheezing. 0 01/01/2023 01/01/2024 Active Alum-Mag Hydroxide-Simeth (Mag-Al Plus Extra Strength) 400-400-40 mg/5 mL Suspension (2 sources) Start: 05-16-2024 take 1 mL by mouth every six hours as needed Alum-Mag Hydroxide-Simeth (Mag-Al Plus Extra Strength) 400-400-40 mg/5 mL Suspension Active 30 mL PO EVERY 6 HOURS NEEDED as needed for Gastric Burning 0 0 May 16, 2024 12:00am aluminum hydroxide 80 mg/ml / magnesium hydroxide 80 mg/ml / simethicone 8 mg/ml oral suspension (4 sources) Start: 05-16-2024 take 30 mL by mouth every six hours as needed aluminum & magnesium hydroxide-simethico ne (MAG-AL PLUS EXTRA STRENGTH) 400-400-40 mg/5 mL suspension Take 30 mL by mouth every 6 hours as needed. Active amLODIPine 10 mg oral tablet (7 sources) Dihydropyridine Calcium Channel Shorty Start: 05-16-2024 apixaban 2.5 mg oral tablet (20 sources) Factor Xa Inhibitor Start: 02-14-2024 Start: 01-01-2023 End: 01-01-2023 take 2.5 mg [...] for constipation. Blood Glucose Monitoring Suppl (FreeStyle [place]) kit (17 sources) Blood Glucose Monitoring Suppl (FreeStyle [place]) kit carvedilol 6.25 mg oral tablet (20 sources) alpha-Adrenergic Shorty, beta-Adrenergic Shorty Start: Start: 01-05-2024 End: 11-14-2024 Start: 10-18-2023 End: 01-05-2024 Start: 09-20-2023 End: 10-18-2023 take 2 tablets by mouth twice daily Carvedilol 3.125 mg tablet Discontinued 6.25 mg PO TWICE A DAY 90 September 20, 2023 12:23pm October 18, 2023 1:40pm heart/ blood pressure Start: 01-08-2018 End: 10-18-2023 take 1 tablet by ck th once daily carvedilol (COREG) 3.125 mg tablet Take 3.125 mg by mouth once daily. 0 Active Comment on above: Take 3.125 mg by ck th once daily. Take 3.125 mg by ck th twice daily with meals. cefadroxil 500 mg oral capsule (3 sources) Cephalosporin Antibacterial Start: End: take 1 capsule by mouth twice daily [...] Active docusate sodium 50 mg / sennosides, alf 8.6 mg oral tablet (7 sources) Start: 025 Start: 05-16-2024 Sennosides-Doc usate Sodium (Stimulant Laxative Plus) 8.6-50 mg Tablet Active 2 {tbl} PO TWICE DAILY NEEDED as needed for Constipation 0 0 May 16, 2024 12:00am take 2 tablets by wa ut once daily in the morning senna-docusate (SENNA-S) 8.6-50 mg per tablet Take 2 tablets by mouth daily at 6 am. Active donepezil hydrochloride 10 m g oral tablet (20 sources) Start: 05-13-2024 Start: 02-14-2024 End: 05-13-2024 Start: 02-14-2024 End: 05-13-2024 take 1 tablet by mouth once daily Donepezil (Aricept) 5 mg tablet Discontinued 5 mg PO DAILY February 14, 2024 1:00am April 24, 2024 2:31pm alzheimers enteric contrast (will be provided with radiology [...] capsule (20 sources) Provitamin D2 Compound Start: 04-20-2024 Start: 02-12-2019 End: 02-14-2024 Start: 02-12-2019 End: 06-20-2024 take 1 capsule by mouth every other week Ergocalciferol (Vitamin D2) 50,000 UNIT capsule Discontinued 40382 U PO .COMPLEX February 12, 2019 1:00am February 14, 2024 7:23pm supplement 50,000 units orally Q 2 Weeks; 50,000 units orally; Start: 02-12-2019 End: 12-29-2022 Start: 02-12-2019 Ergocalciferol (Vitamin D2) Active 39871 UNIT PO SA February 12, 2019 12:00am Start: 06-27-2018 End: 01-01-2023 take 1 capsule by mouth every week VITAMIN D 50,000 unit capsule Take 1 capsule by mouth once each week. 0 06/27/2018 Active Comment on above: Take 1 capsule by [facility] once each week. Take 50,000 Units by [...] (after last modification) on 12/30/22 at 0900 Start: 12-26-2022 End: 12-29-2022 take 40 mg by mouth twice daily 40 mg, Oral, 2 times d aily, First dose on 12/26/22 at 1000 Start: 10-04-2022 End: 06-20-2024 take 1 capsule by mouth once daily FLUoxetine (PROzac) 20 MG capsule Take 1 capsule (20 mg) by mouth daily for 20 days. 0 01/02/2023 Active Start: 01-06-2018 End: 04-24-2024 Start: 01-06-2018 End: 01-22-2023 take 1 capsule by mouth once daily in the morning FLUoxetine (PROzac) 40 MG capsule Take 1 capsule (40 mg) by mouth every morning for 20 days. 0 01/02/2023 Active Comment on above: Take 20 mg by mouth once daily. Take 40 mg by mouth once daily. gabapentin 100 mg oral capsu le (20 sources) Anti-epileptic Agent Start: 04-14-2023 End: 04-24-2024 Start: 04-14-2023 End: 04-24-2024 Start: 01-01-2023 End: [...] End: 02-15-2019 Start: 02-12-2019 End: 02-15-2019 take 2 capsules by mouth twice daily at mealtime Gabapentin 100 MG capsule Discontinued 200 mg PO TWICE DAILY WITH MEALS February 12, 2019 1:00am February 15, 2019 3:23pm nerve pain Start: 02-12-2019 End: 01-01-2023 take 200 mg by mouth twice daily at mealtime Gabapentin Discontinued 200 MG PO TWICE DAILY WITH MEALS February 12, 2019 1:00am February 15, 2019 3:23pm glipiZIDE 10 mg oral tablet (20 sources) Sulfonylurea Start: 04-20-2024 Start: 01-06-2018 End: 04-20-2024 Start: 01-06-2018 End: 04-20-2024 Start: 04-19-2012 End: 10-15-2022 take 1 tablet by mouth once daily before breakfast glipiZIDE 10 mg tablet Indications: Type II or unspecified type diabetes mellitus without mention of complication, uncontrolled Take 1 tablet by mouth daily before breakfast. 30 tablet 5 04/19/2012 Active take 1 tablet by ck th once daily glipiZIDE XL (Glucotrol XL) 10 MG 24 hr tablet Take 10 mg by mouth daily. Do not crush, chew, or split. 0 Active Comment on above: Take 1 tablet by ck th daily before breakfast. hydrOXYzine pamoate 25 mg oral capsule (7 sources) Antihistamine Start: 05-16-2024 iv contrast (will be provided with radiology test) (11 sources) Start: 09-11-2022 iv contrast (will be provided with radiology test) Indications: [...] guidelines link. lidocaine 0.05 mg/mg medicated patch (5 sources) Antiarrhythmic, Amide Local Anesthetic Start: 05-16-2024 losartan potassium 25 mg ora l tablet (1 source) Angiotensin 2 Receptor Shorty Start: 11-14-2024 melatonin 3 mg oral tablet (20 sources) Start: 05-16-2024 Start: 05-16-2024 take 1 tablet by ck th at bedtime as needed Melatonin 3 mg Tablet Active 3 mg PO AT BEDTIME NEEDED as needed for Insomnia 0 0 May 16, 2024 12:00am Start: 10-13-2022 End: 10-15-2022 take 10 mg by mouth once daily as needed for sleep 10 mg, Oral, Nightly PRN, sleep, Starting on Sun10/13/22 at 1931 take 1 capsule by mo uth once daily at bedtime melatonin 3 mg [...] mirabegron 50 mg extended release oral tablet (6 sources) beta3-Adrenergic Agonist Start: Multivitamin capsule (11 sources) take 1 capsule by mouth once daily Multivitamin capsule Take 1 capsule by mouth once daily. Active take 1 capsule by mouth once sasha ly Multivitamin capsule Take 1 capsule by mouth once daily. 0 Active Comment on above: Take 1 capsule by mo uth once daily. multivitamin,therapeut ic (THERAPEUTIC MULTIVITAMIN ORAL) (2 sources) take 1 tablet by mouth once daily multivitamin,therape utic (THERAPEUTIC MULTIVITAMIN ORAL) Take 1 tablet by mouth once daily. Active nitrofurantoin, macrocrystals 25 mg / nitrofurantoin, monohydrate 75 mg oral capsule (4 sources) Nitrofuran Antibacterial Start: 05-20-19 Start: 05-19-2024 Nitrofurantoin Monohyd/M-Cryst 100 mg capsule Active 1 NMA PO Q12 May 19, 2024 12:00am Nut.Tx.Gluc Intol,Lf,Soy-Fiber (Glucerna 1.2 Broderick) 0.06-1.2 gram-kcal/mL Liquid (1 source) Start: 08-16-2022 take 1 mL by mouth four times daily Nut.Tx.Gluc Intol,Lf,Soy-Fiber (Glucerna 1.2 Broderick) 0.06-1.2 gram-kcal/mL Liquid Active 120 ML PO 4 TIMES DAILY 0 August 16, 2022 12:00am nystatin 100 unt/mg topical powder (13 sources) Polyene Antifungal Start: 08-16-2022 Nystatin (Nyamyc) 100,000 unit/gram Powder Active 1 APPLIC TOPICAL TWICE A DAY 0 August 16, 2022 12:00am Start: 08-03-2012 nystatin ointm ent Indications: Skin yeast infection APPLY TO AFFECTED AREA TWICE DAILY FOR 1-2WEEKS 1 Tube 0 08/03/2012 Active Comment on above: APPLY TO AFFECTED AR EA TWICE DAILY FOR 1-2WEEKS OTC PRODUCT (2 sources) OTC PRODUCT Appl y to affected area once daily. Lidocaine External Patch Apply to back topically in the morning for pain. Remove at bedtime. Active 24 hr oxybutynin chloride 15 mg extended release oral tablet (20 sources) Cholinergic Muscarinic Antagonist Start: 05-19-2024 Start: 04-20-2024 End: 04-24-2024 Start: 04-20-2024 End: 04-24-2024 take 1 tablet by mouth once daily Oxybutynin Chloride 15 mg tablet extended release 24hr Discontinued 30 mg PO DAILY April 20, 2024 1:00am April 24, 2024 2:33pm Start: 04-14-2023 End: 04-20-2024 Start: 04-14-2023 End: 04-20-2024 Start: 09-13-2022 oxybutynin XL (Ditropan-XL) 10 MG 24 hr tablet Start: 09-13-2022 Start: 01-06-2018 Start: 01-06-2018 take 10 mg by mouth twice rudy y Oxybutynin Chloride Active 10 MG PO TWICE A DAY January 06, 2018 1:00am Start: 08-13-2012 take 2 tablets by mo ut twice daily oxybutynin 5 mg tablet Take 2 tablets by mouth twice daily. 120 tablet 11 08/13/2012 Active Comment on above: Take 2 tablets by mo uth twice daily. microencapsulated potassium chloride 20 meq extended release oral tablet (7 sources) Start: Prochlorperazine (12 sources) Phenothiazine PROCHLORPERAZINE MALEATE (COMPAZINE ORAL) Take 1 tablet by mouth. Active PROCHLORPERAZINE MALEATE (COMPAZINE ORAL) Take 1 tablet by mouth. 0 Active Comment on above: Take 1 tablet by ck . Remove Patch (2 sources) Start: 05-17-19 apply 1 dose topically once daily Remove Patch Active 2 NMA TOPICAL DAILY@2200 0 0 May 16, 2024 12:00am sodium phosphate, dibasic 35.5 mg/ml / sodium phosphate, monobasic 96.4 mg/ml enema (20 sources) sodium phosphate (Fleets) 7-19 GM/118ML enema enema Insert into the rectum. 0 Active sulfamethoxazole 800 mg / trimethoprim 160 mg oral tablet (3 sources) Dihydrofolate Reductase Inhibitor Antibacterial, Sulfonamide Antimicrobial Start: 09-06-19 Start: 09-05-2024 Sulfamethoxazo le-Trimethoprim (Bactrim Ds) 800-160 mg tablet Active 1 {tbl} PO TWICE A DAY 2 0 September 05, 2024 12:00am TENS Units logan (12 sources) Start: 05-31-2016 TENS Units dev i 1 Device as needed. 1 Device 05/31/2016 Active Start: 05-31-2016 TENS Units dev i 1 Device as needed. 1 Device 0 05/31/2016 Active Comment on above: 1 Device as needed. tiZANidine 2 mg oral tablet (20 sources) Central alpha-2 Adrenergic Agonist Start: 05-16-2024 Start: 01-06-2018 End: 02-15-2019 Comment on above: Take 1 tablet by ck twice daily as needed. 24 hr tolterodine tartrate 4 mg extended release oral capsule (8 sources) Cholinergic Muscarinic Antagonist Start: 04-24-2024 tolterodine ER (DETROL LA) 4 mg 24 hr capsule 4 mg. 04/24/2024 Active Start: 04-24-2024 traMADol hydrochloride 50 mg oral tablet (20 sources) Opioid Agonist Start: 05-19-2024 Start: 08-16-2022 End: 04-14-2023 Start: 08-16-2022 End: 01-01-2023 take 1 tablet by mouth every eight hours as needed for pain traMADol (Ultram) 50 MG tablet Indications: Complication of internal hip prosthesis, initial encounter (HCC) , Failed orthopedic implant, initial encounter ([facility]) Take 1 tablet (50 mg) by mouth every 8 hours as needed for moderate pain (4-6) for up to 1 day. 3 tablet 0 10/15/2022 10/16/2022 Active Start: 08-16-2022 End: 04-14-2023 Comment on above: Take 50 mg by mouth every 6 hours as needed for pain. (20 sources) Start: 05-16-2024 Start: 05-13-2024 Start: [...] Glucose: &nb sp; & nbsp; &nbsp ; &nbsp ;Dose: LESS than 139 No Insulin 140-199 2 [...] (20 sources) Bisphosphonate Start: 05-30-2012 End: 06-20-2024 Comment on above: Take 1 tablet by ck th once each week. amoxicillin 875 mg / clavulanate 125 mg oral tablet (8 sources) Penicillin-class Antibacterial Start: 01-05-2024 End: 01-25-2024 Start: 01-05-2024 End: 01-25-2024 Amoxicillin-Pot Clavulanate 875-125 mg tablet Discontinued 1 {tbl} PO TWICE A DAY 4 2 0 January 05, 2024 12:45pm January 25, 2024 9:40am aspirin 81 mg delayed releas e oral tablet (20 sources) Platelet Aggregation Inhibitor, Nonsteroidal Anti-inflammatory Drug Start: 01-08-2018 End: 06-20-2024 Comment on above: Take 81 mg by mouth once daily. baclofen 10 mg oral tablet (20 sources) gamma-Aminobutyric Acid-ergic Agonist Start: 01-06-2018 End: 05-27-2018 busPIRone hydrochloride 7.5 mg oral tablet (20 sources) Start: 01-06-2018 End: 05-29-2024 Start: 01-06-2018 End: 05-13-2024 take 3 tablets by mouth twice daily Buspirone 7.5 MG tablet Discontinued 22.5 mg PO TWICE A DAY January 06, 2018 1:00am May 13, 2024 6:41pm anxiety Start: 01-06-2018 End: 05-13-2024 Start: 04-19-2012 End: 06-20-2024 Comment on above: Take 1 tablet by ck twice daily. calcium chloride 0.0014 meq/ml / potassium chloride [...] once daily. cephalexin 500 mg oral capsule (18 sources) Cephalosporin Antibacterial Start: 04-24-2024 End: 05-13-2024 Start: 04-14-2023 End: 12-30-2023 Start: 04-14-2023 End: 12-30-2023 take 1 capsule by mouth three times daily Cephalexin 500 mg capsule Discontinued 500 mg PO THREE TIMES A DAY 21 7 0 April 14, 2023 1:00am December 30, 2023 9:48pm cetirizine hydrochloride 10 mg oral tablet (4 [...] Sun12/25/22 at 2315, If Titrate Infusion? is "No": Disregard instructions below. If Titrate infusion? is "Yes": Titrate in increments of 0.2 mcg/kg/hr no [...] 24 hours scheduled (Daily), First dose on 10/11/22 at 0900 Indication of Use: Prophylaxis-DVT/PE Indications: Prophylaxis of Venous Thromboembolism Start: 08-16-2022 Enoxaparin Act an 40 MG SC DAILY August 16, 2022 12:00am Please use 30 days after post op 4 ml furosemide 10 mg/ml injection (1 source) Loop Diuretic Start: 12-24-2022 End: 12-24-2022 20 mg, IntraVENous, Once, On 12/24/22 at 1845, For 1 dose Garcinia Cambogia Tablet (16 sources) Start: 02-12-2019 End: 02-15-2019 take 1 tablet by mouth once daily as needed Garcinia Cambogia Tablet Discontinued 3 NMA PO DAILY as needed for diet supplement February 12, 2019 1:00am February 15, 2019 3:17pm Start: 02-12-2019 End: 02-15-2019 take 1 tablet [...] 3:19pm Start: 02-12-2019 End: 02-15-2019 Start: 04-19-2012 End: 02-15-2019 Lisinopril-Hydrochlorothiazi de 1 EACH tablet Discontinued 1 NMA PO DAILY February 12, 2019 1:00am February 15, 2019 3:19pm bp Comment on above: Take 1 tablet by ck th once daily. 1 ml HYDROmorphone hydrochloride 1 mg/ml cartridge (4 sources) Opioid Agonist Start: 12-25-2022 End: 12-28-2022 take 0.5 mg by mouth every three hours as needed for pain 0.5 mg, IntraVENous, Every 3 hours PRN, severe pain (7-10), Starting on Sun12/25/22 at 2315, If oral and IV narcotics ordered, use oral first and only use IV if oral is ineffective or cannot take oral. Start: 12-24-2022 End: 12-25-2022 take 0.5 mg intravenously every four hours as needed for pain 0.5 mg, IntraVENous, Every 4 hours PRN, severe pain (7-10), Starting on Sun12/24/22 at 0718, If oral and IV narcotics ordered, use oral first and only use IV if oral is ineffective or cannot take oral. Do Not give oral and IV within 1 hour of each other unless specifically ordered. Start: 10-10-2022 End: 10-10-2022 0.5 mg, IntraVENous, Every 5 min PRN, severe pain (7-10), Starting on Sun10/10/22 at 1937, For 4 doses, Recovery (only) [...] do not return to initial therapy medications. 3 ml insulin lispro 100 unt/ ml pen injector (16 sources) Insulin Analog Start: 05-16-2024 End: 11-14-2024 Start: 04-24-2024 End: 05-13-2024 Start: 10-11-2022 End: 10-11-2022 inject 5 [IU] by subcutaneous injection once 5 Units, SubCUTAneous, Once, On Sun10/11/22 at 1230, For 1 dose Start: 10-10-2022 End: 10-10-2022 inject 10 [IU] by subcutaneous injection once 10 Units, SubCUTAneous, Once, On Sun10/10/22 at 2330, For 1 dose labetalol hydrochloride 5 mg/ml injectable solution (2 [...] mg by mouth once daily. magnesium hydroxide 80 mg/ml oral suspension (20 sources) Start: 09-15-2022 End: 04-14-2023 Start: 09-15-2022 End: 04-14-2023 take 1 mL by mouth once daily as needed for constipation Magnesium Hydroxide (Milk Of Magnesia) 400 mg/5 mL suspension Discontinued 30 mL PO DAILY as needed for constipation September 15, 2022 12:00am April 14, 2023 10:49am Start: 09-15-2022 End: 04-14-2023 take 1 mL by mouth once daily Magnesium Hydroxide (Mil k Of Magnesia) 400 mg/5 mL suspension Discontinued [...] Comment on above: Take 1 tablet by [facility]. meloxicam 7.5 mg oral tablet (20 sources) Nonsteroidal Anti-inflammatory Drug Start: 04-14-2023 End: 01-05-2024 Start: 02-15-2019 End: 01-01-2023 Start: 01-06-2018 End: 02-15-2019 menthol 0.04 mg/mg topical g el (18 sources) Start: 09-15-2022 End: 04-14-2023 Start: 09-15-2022 End: 04-14-2023 Menthol (Biofreeze (Menthol) ) 4 % gel Discontinued 1 NMA TOPICAL TWICE A DAY as needed for pain September 15, 2022 12:00am April 14, 2023 10:50am Start: 09-15-2022 End: 04-14-2023 Menthol (Biofreeze (Menthol) [...] ordered. Multivitamin With Iron-Mineral (Super Multiple) tablet (12 sources) Start: 09-15-2022 End: 04-14-2023 Multivitamin With Iron-Mineral (Super Multiple) tablet Discontinued 1 {tbl} PO DAILY September 15, 2022 12:00am April 14, 2023 10:50am Start: 09-15-2022 End: 04-14-2023 take 1 tablet by mouth once daily [...] nitrofurantoin, macrocrystal s 100 mg oral capsule (8 sources) Nitrofuran Antibacterial Start: 02-17-2024 End: 04-20-2024 omeprazole 20 mg delayed rel ease oral tablet (20 sources) Proton Pump Inhibitor Start: 07-31-2011 End: 09-20-2023 omeprazole (PriL OSEC) [address] capsule Take by mouth. 0 Active End: 01-01-2023 Comment on above: Take 1 tablet by ck once daily. ondansetron 4 mg disintegrat ing oral tablet (13 sources) Serotonin-3 Receptor Antagonist Start: 04-14-2023 End: 04-20-2024 Start: 10-10-2022 End: 10-10-2022 4 mg, IntraVENous, Once PRN, nausea, Starting on Sun10/10/22 at 1937, For 1 dose, Recovery (only) Initial antiemetic therapy. oxyCODONE hydrochloride 5 mg oral tablet (20 sources) Opioid Agonist Start: 04-14-2023 End: 12-30-2023 Start: 01-01-2023 End: 01-08-2023 take 1 tablet by mouth every six hours as needed for pain oxyCODONE (Roxicodone) 5 MG immediate release tablet Indications: Closed displaced intertrochanteric fracture of right femur, initial encounter ([facility]) , Closed fracture of multiple pubic rami, right, initial encounter ([facility]) Take 1 tablet (5 mg) by mouth every 6 hours as needed for severe pain (7-10) for up to 7 days. 28 tablet 0 01/01/2023 01/08/2023 Start: 02-15-2019 End: 02-22-2019 Start: 02-15-2019 End: 11-13-2022 take 5-10 mg by mouth every six hours as needed for pain Oxycodone 5 MG tablet Discontinued 5 - 10 mg PO EVERY 6 HOURS NEEDED as needed for Pain Score -11/21 30 7 0 February 15, 2019 February 21, 2019 1:00am February 22, 2019 1:09am Psoriatic arthritis Arthropathic psoriasis, unspecified Start: 02-12-2019 End: 02-15-2019 pantoprazole 40 mg delayed r elease oral tablet (20 sources) Proton Pump Inhibitor Start: 09-20-2023 End: 04-24-2024 Start: 10-05-2022 End: 10-15-2022 take 40 mg by mouth once daily before breakfast 40 mg, Oral, Daily before breakfast, First dose on [place] 10/05/22 at 0700 Do not crush, chew, or split. polyethylene glycol 3350 [id number] mg powder for oral solution (20 sources) [...] 12/23/22 at 2245, If Titrate Infusion? is "No": Disregard instructions below. If Titrate infusion? is "Yes": Titrate in increments of 5 mcg/kg/min no [...] irst dose on Sun12/26/22 at 2100 sennosides, alf 8.6 mg oral tablet (3 sources) Start: [...] a day as needed for constipation. Active simvastatin 40 mg oral table t (20 sources) HMG-CoA Reductase Inhibitor Start: 04-19-2012 End: 04-24-2024 Comment on above: Take 1 tablet by ck th daily at bedtime. sucralfate 1000 mg oral tabl et (8 sources) Aluminum Complex Start: 01-05-2024 End: 04-20-2024 Start: 01-05-2024 End: 04-20-2024 take 1 tablet by mouth at bedtime Sucralfate (Carafate) 1 gram tablet Discontinued 1 g PO BEFORE MEALS AND AT BEDTIME 120 0 January 05, 2024 1:00am April 20, 2024 3:39pm stomach Turmeric extract (19 sources) Start: 04-14-2023 End: 04-20-2024 take 1 capsule by mouth once daily turmeric 1,000 mg capsule Discontinued 1 NMA PO DAILY April 14, 2023 1:00am April 20, 2024 3:39pm supplement Start: 04-14-2023 take 1 capsule by mo uth once daily turmeric Active 1 CAP PO DAILY April 14, 2023 1:00am Start: 02-12-2019 End: 07-06-2022 take 1 capsule by mouth once daily Turmeric 400 MG capsule Discontinued 400 mg PO DAILY February 12, 2019 1:00am July 06, 2022 10:41am supplement Start: 02-12-2019 End: 07-06-2022 take 400 mg by mouth once daily Turmeric Discontinued 400 MG PO DAILY February 12, 2019 12:00am July 06, 2022 9:41am Start: 02-12-2019 End: 07-06-2022 take 400 mg by mouth once daily Turmeric Discontinued 400 MG PO DAILY February 12, 2019 1:00am July 06, 2022 10:41am Start: 02-12-2019 take 400 mg by mouth once rudy y Turmeric Active 400 MG PO DAILY February 12, 2019 1:00am (2 sources) Start: 10-03-2022 End: 10-03-2022 take 75 mL intravenously once as needed 75 mL, IntraVENous, IMG once PRN, contrast, Starting on Sun10/03/22 at 2024, For 1 dose (2 sources) Start: 12-26-2022 [...] Minutes, Every 8 hours, First dose on 12/24/22 at 0000, Drug Name: acetaminophen, Form: solution, Length of Therapy: Indefinite, How soon needed? (normally 72 hrs needed to procure): 0-24 hrs, Reason for Non-Formulary: NPO (1 source) Start: 12-23-2022 End: 12-24-2022 25-200 mcg/hr (2.5-20 mL/hr), IntraVENous, Continuous, Starting on 12/23/22 at 2245, If Titrate Infusion? is "No": Disregard instructions below. If Titrate infusion? is "Yes": Titrate in increments of 25 mcg/hr no [...] Classification Problem Date Documented Date Episodic/Chronic Acute myocardial infarction (20 sources) Myocardial infarction; Translations: [Acute myocardial infarction, unspecified] Onset: 8 11-06-2022 Chronic Acute posthemorrhagic anemia (20 sources) Acute posthemorrhagic anemia; Translations: [Acute posthemorrhagic anemia] Onset: 3 08-14-2022 Episodic Anal and rectal conditions (20 sources) Rectal mass; Translations: [Other specified diseases of anus and rectum] 04-14-2023 Episodic Anxiety disorders (20 sources) Generalized anxiety disorder; Translations: [Generalized anxiety disorder] Onset: 7 11-26-2009 Chronic Cardiac dysrhythmias (11 sources) Paroxysmal atrial fibrillation; Translations: [Paroxysmal atrial fibrillation] Onset: 5 09-01-2024 Chronic Chronic kidney disease (20 sources) Chronic kidney disease stage 3; Translations: [Stage 3 chronic kidney disease] Onset: 3 03-06-2019 Chronic Chronic ulcer of skin (4 sources) Pressure ulcer of sacral region, stage 1; Translations: [Pressure injury of sacral region, stage 1] 09-01-2024 Chronic Congestive heart failure; nonhypertensive (12 sources) Acute exacerbation of chronic congestive heart failure; Translations: [Heart failure, unspecified] Onset: 4 01-12-2024 Chronic Coronary atherosclerosis and other heart disease (20 sources) Non-obstructive atherosclerosis of coronary artery; Translations: [Atherosclerotic heart disease of [place] coronary artery without angina pectoris] Onset: 3 02-12-2019 Chronic Delirium, dementia, and amnestic and other cognitive disorders (5 sources) Dementia; Translations: [Unspecified dementia without behavioral disturbance] Onset: 5 11-08-2024 Chronic Diabetes mellitus with complications (6 sources) Diabetic ketoacidosis; Translations: [Type 2 diabetes mellitus with ketoacidosis without coma] Onset: 5 11-08-2024 Chronic Diabetes mellitus without complication (20 sources) Type 2 diabetes mellitus without complications; Translations: [Type 2 diabetes mellitus without complication] Onset: 9 02-25-2015 Chronic Diseases of white blood cells (20 sources) Leukocytosis; Translations: [Elevated white blood cell count, unspecified] Onset: 0 11-26-2009 Chronic Disorders of lipid metabolism (20 sources) Hyperlipidemia, unspecified; Translations: [Mixed hyperlipidemia] Onset: 9 02-12-2019 Chronic Esophageal disorders (20 sources) Gastro-esophageal reflux disease [...] Chronic Hypertension with complications and secondary hypertension (19 sources) Hypertensive urgency ; Translations: [Hypertensive urgency] Onset: 5 04-14-2023 Chronic Immunizations and screening for infectious disease (20 sources) Requires tetanus and diphtheria vaccination; Translations: [Encounter for immunization] 03-07-2019 Episodic Mood disorders (20 sources) Bipolar disorder, unspecified; Translations: [Bipolar disorder, in partial remission, most recent episode mixed] Onset: 7 11-26-2009 Chronic Mycoses (12 sources) Candidal intertrigo; Translations: [Candidiasis of skin and nail] 04-20-2024 Episodic Nausea and vomiting (2 sources) Vomiting, unspecified; Translations: [Vomiting, unspecified] Onset: 7 Noninfectious gastroenteritis (15 sources) Gastroenteritis; Translations: [Noninfective gastroenteritis and colitis, unspecified] 09-17-2023 Episodic Nonspecific chest pain (15 sources) Chest pain; Translations: [Chest pain, unspecified] [...] [Osteoporosis] Onset: 9 06-20-2024 Chronic Other aftercare (18 sources) Long-term current use of anticoagulant; Translations: [tank terminal gauger (current) use of anticoagulants] 04-20-2024 Episodic Other aftercare (1 source) intermediate (current) use of anticoagulants; Translations: [tank terminal gauger (current) use of anticoagulants] Onset: 5 Episodic Other and ill-defined heart disease (1 source) Takotsubo syndrome; Translations: [Takotsubo syndrome] Onset: 9 [...] Episodic Other bone disease and musculoskeletal deformities (11 sources) Other specified disorders of bone, unspecified site; Translations: [Lytic lesion of bone on x-ray] Onset: 5 08-14-2022 Episodic Other circulatory disease (20 sources) Low blood pressure; Translations: [Hypotension, unspecified] [...] Onset: 3 Chronic Other connective tissue disease (20 sources) Recurrent falls ; Translations: [Repeated falls] 04-20-2024 Episodic Other connective tissue disease (4 sources) Spasm; Translations: [Other muscle spasm] 05-26-2024 Episodic Other connective tissue disease (1 source) Repeated falls; Translations: [Repeated falls] Onset: 5 Episodic Other diseases of kidney and ureters (4 sources) Acute renal insufficiency; Translations: [Disorder of kidney and ureter, unspecified] 09-01-2024 Episodic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 Performed By: #### L 501.080 ####[facility] [address] [place], [address] FINGERSTICK GLU 163 mg/dL High 74-106 [facility] Comment on above: Result Comment: GERALDO GEMENT OF PATIENT CARE PER NURSING PROTOCOL Performed By: #### L 501.080 ####[facility] [address] [place], [address] FINGERSTICK GLU 119 mg/dL High 74-106 [facility] Comment on above: Result Comment: GERALDO GEMENT OF PATIENT CARE PER NURSING PROTOCOL Performed By: #### L 501.080 ####[facility] [address] [place], [address] CBC W/Diff, Automatedon 10-0 2-2025 Absolute Lymph 3.07 X10 3/uL Normal 0.83-4.51 [facility] Comment on above: Performed By: #### L 501.2300, L500.2500, L100.0100, L501.5200 ####[facility] [address] [place], [address] Absolute Neut 3.6 X10 3/uL Normal 2.0-7.7 [facility] Comment on above: Performed By: #### L 501.2300, L500.2500, L100.0100, L501.5200 ####[facility] [address] [place], [address] Basophils/100 WBC (Bld) 0.4 % Normal 0-1 [facility] Comment on above: Performed By: #### L 501.2300, L500.2500, L100.0100, L501.5200 ####[facility] [address] [place], [address] Eosinophils/100 WBC (Bld) 3.6 % Normal 0-5 [facility] Comment on above: Performed By: #### L 501.2300, L500.2500, L100.0100, L501.5200 ####[facility] [address] [place], [address] Erythrocyte distribution width (RBC) [Ratio] 13.6 % Normal 11.6-14.6 [facility] Comment on above: Performed By: #### L 501.2300, L500.2500, L100.0100, L501.5200 ####[facility] [address] [place], [address] Hematocrit (Bld) [Volume fraction] 37.2 % Normal 37-47 [facility] Comment on above: Performed By: #### L 501.2300, L500.2500, L100.0100, L501.5200 ####[facility] [address] [place], [address] Hemoglobin (Bld) [Mass/Vol] 12.1 g/dL Normal 12.0-15.0 [facility] Comment on above: Performed By: #### L 501.2300, L500.2500, L100.0100, L501.5200 ####[facility] [address] [place], [address] IG% 0.300 Normal 0.0-0.9 [facility] Comment on above: Result Comment: IG% - Immature Granulocytes (promyelocytes, myelocytes andmetamyelocytes) > 1% indicates that a LEFT SHIFT is Present. Performed By: #### L 501.2300, L500.2500, L100.0100, L501.5200 ####[facility] [address] [place], [address] Lymphocytes/100 WBC (Bld) 41.4 % High 19-41 [facility] Comment on above: Performed By: #### L 501.2300, L500.2500, L100.0100, L501.5200 ####[facility] [address] [place], [address] MCH (RBC) [Entitic mass] 29.1 pg Normal 27.0-32.0 [facility] Comment on above: Performed By: #### L 501.2300, L500.2500, L100.0100, L501.5200 ####[facility] [address] [place], [address] MCHC (RBC) [Mass/Vol] 32.5 g/dL Normal 32-36 [facility] Comment on above: Performed By: #### L 501.2300, L500.2500, L100.0100, L501.5200 ####[facility] [address] [place], [address] MCV (RBC) [Entitic vol] 89.4 fL Normal 81-99 [facility] Comment on above: Performed By: #### L 501.2300, L500.2500, L100.0100, L501.5200 ####[facility] [address] [place], [address] Monocytes/100 WBC (Bld) 5.7 % Normal 0-10 [facility] Comment on above: Performed By: #### L 501.2300, L500.2500, L100.0100, L501.5200 ####[facility] [address] [place], [address] Neutrophils/100 WBC (Bld) 48.6 % Normal 47-70 [facility] Comment on above: Performed By: #### L 501.2300, L500.2500, L100.0100, L501.5200 ####[facility] [address] [place], [address] Nucleated RBC (Bld) [#/Vol] 0 10*3/uL Normal 0-5 [facility] Comment on above: Performed By: #### L 501.2300, L500.2500, L100.0100, L501.5200 ####[facility] [address] [place], [address] Platelet mean volume (Bld) [Entitic vol] 9.4 fL Normal 6.2-12.0 [facility] Comment on above: Performed By: #### L 501.2300, L500.2500, L100.0100, L501.5200 ####[facility] [address] [place], [address] Platelets (Bld) [#/Vol] 258 10*3/uL Normal 150-450 [facility] Comment on above: Performed By: #### L 501.2300, L500.2500, L100.0100, L501.5200 ####[facility] [address] [place], [address] RBC (Bld) [#/Vol] 4.16 10*6/uL Low 4.2-5.4 [facility] Comment on above: Performed By: #### L 501.2300, L500.2500, L100.0100, L501.5200 ####[facility] [address] [place], [address] RDW SD 44.8 fl High 35.1-43.9 [facility] Comment on above: Performed By: #### L 501.2300, L500.2500, L100.0100, L501.5200 ####[facility] [address] [place], [address] WBC (Bld) [#/Vol] 7.4 10*3/uL Normal 4.4-11.0 [facility] Comment on above: Performed By: #### L 501.2300, L500.2500, L100.0100, L501.5200 ####[facility] [address] [place], [address] Magnesiumon 11-13-2024 Magnesium [Mass/Vol] 1.9 mg/dL Normal 1.5-2.2 [facility] Comment on above: Performed By: #### L 501.2300, L500.2500, L100.0100, L501.5200 ####[facility] [address] [place], [address] Magnesium measurement (mass/ volume)Ordered By: Anuja Murcia on 11-13-2024 Magnesium (Unsp spec) [Mass/Vol] 1.9 mg/dL 1.5-2.2 [facility] Phosphoruson 11-13-2024 Phosphate [Mass/Vol] 3.0 mg/dL Normal 2.7-4.5 [facility] Comment on above: Performed By: #### L 501.2300, L500.2500, L100.0100, L501.5200 ####[facility] [address] [place], [address] Absolute lymphocyte countOrd ered By: Dereck Youssef on 11-12-2024 Lymphocytes Auto (Unsp spec) [#/Vol] 2.99 10*3/uL 0.83-4.51 [facility] Anion gap in Serum or Plasma Ordered By: Dereck Youssef on 11-12-2024 Anion gap [Moles/Vol] 11 mmol/L 06-26 [facility] Automated lymphocyte count a s percentage of total leukocytesOrdered By: Dereck Youssef on 11-12-2024 Lymphocytes/100 WBC Auto (Unsp spec) 29.8 % [facility] BUN/creatinine ratioOrdered By: Dereck Youssef on 11-12-2024 Urea nitrogen/Creatinine [Mass ratio] 14.6 mg/mg 12-01 [facility] Basic Metabolic Profile (BMP )on 11-12-2024 BUN/CRE 14.6 RATIO Normal 12-01 [facility] Comment on above: Performed By: #### L 100.0100, L500.2500 ####[facility] [address] [place], [address] Calcium [Mass/Vol] 8.6 mg/dL Normal 7.6-11.0 [facility] Comment on above: Performed By: #### L 100.0100, L500.2500 ####[facility] [address] [place], [address] Chloride [Moles/Vol] 110 mmol/L High 98-108 [facility] Comment on above: Performed By: #### L 100.0100, L500.2500 ####[facility] [address] [place], [address] CO2 [Moles/Vol] 21.1 mmol/L Normal 21.0-32.0 [facility] Comment on above: Performed By: #### L 100.0100, L500.2500 ####[facility] [address] [place], [address] Creatinine [Mass/Vol] 0.66 mg/dL Low 0.70-1.20 [facility] Comment on above: Performed By: #### L 100.0100, L500.2500 ####[facility] [address] [place], [address] ECRCL 55.70 ml/min Normal 50-250 [facility] Comment on above: Performed By: #### L 100.0100, L500.2500 ####[facility] [address] [place], [address] GAP 11 Normal 5-15 [facility] Comment on above: Performed By: #### L 100.0100, L500.2500 ####[facility] [address] [place], [address] GFR/1.73 sq M.predicted among non-blacks MDRD (S/P/Bld) [Vol rate/Area] 94 mL/min/{1.73_m2} Normal >60 [facility] Comment on above: Result Comment: mL/m in/1.73m2 CKD-EPI Creatinine Equation (2020) Performed By: #### L 100.0100, L500.2500 ####[facility] [address] [place], [address] Glucose [Mass/Vol] 146 mg/dL High 70-99 [facility] Comment on above: Performed By: #### L 100.0100, L500.2500 ####[facility] [address] [place], [address] Potassium [Moles/Vol] 3.3 mmol/L Normal 3.3-5.1 [facility] Comment on above: Performed By: #### L 100.0100, L500.2500 ####[facility] [address] [place], [address] Sodium [Moles/Vol] 142 mmol/L Normal 133-145 [facility] Comment on above: Performed By: #### L 100.0100, L500.2500 ####[facility] [address] [place], [address] Urea nitrogen [Mass/Vol] 10 mg/dL Normal 4-19 [facility] Comment on above: Performed By: #### L 100.0100, L500.2500 ####[facility] [address] [place], [address] Basophil percentageOrdered B y: Dereck Youssef on 11-12-2024 Basophils/100 WBC (Bld) 0.3 % 0-1 [facility] Bedside Glucoseon 11-12-2024 FINGERSTICK GLU 144 mg/dL High 74-106 [facility] Comment on above: Result Comment: GERALDO GEMENT OF PATIENT CARE PER NURSING PROTOCOL Performed By: #### L 501.080 ####[facility] [address] [place], [address] FINGERSTICK GLU 150 mg/dL High -106 [facility] Comment on above: Result Comment: GERALDO GEMENT OF PATIENT CARE PER NURSING PROTOCOL Performed By: #### L 501.080 ####[facility] [address] [place], [address] FINGERSTICK GLU 167 mg/dL High 74-106 [facility] Comment on above: Result Comment: GERALDO GEMENT OF PATIENT CARE PER NURSING PROTOCOL Performed By: #### L 501.080 ####[facility] [address] [place], [address] FINGERSTICK GLU 134 mg/dL High -106 [facility] Comment on above: Result Comment: GERALDO GEMENT OF PATIENT CARE PER NURSING PROTOCOL Performed By: #### L 501.080 ####[facility] [address] [place], [address] Brain without Contraston Brain without Contrast Normal [facility] CBC W/Diff, Automatedon 10-0 Absolute Lymph 2.99 X10 3/uL Normal 0.83-4.51 [facility] Comment on above: Performed By: #### L 100.0100, L500.2500 ####[facility] [address] [place], [address] Absolute Neut 6.2 X10 3/uL Normal 2.0-7.7 [facility] Comment on above: Performed By: #### L 100.0100, L500.2500 ####[facility] [address] [place], [address] Basophils/100 WBC (Bld) 0.3 % Normal 0-1 [facility] Comment on above: Performed By: #### L 100.0100, L500.2500 ####[facility] [address] [place], [address] Eosinophils/100 WBC (Bld) 3.0 % Normal 0-5 [facility] Comment on above: Performed By: #### L 100.0100, L500.2500 ####[facility] [address] [place], [address] Erythrocyte distribution width (RBC) [Ratio] 13.4 % Normal 11.6-14.6 [facility] Comment on above: Performed By: #### L 100.0100, L500.2500 ####[facility] [address] [place], [address] Hematocrit (Bld) [Volume fraction] 36.4 % Low 37-47 [facility] Comment on above: Performed By: #### L 100.0100, L500.2500 ####[facility] [address] [place], [address] Hemoglobin (Bld) [Mass/Vol] 11.7 g/dL Low 12.0-15.0 [facility] Comment on above: Performed By: #### L 100.0100, L500.2500 ####[facility] [address] [place], [address] IG% 0.300 Normal 0.0-0.9 [facility] Comment on above: Result Comment: IG% - Immature Granulocytes (promyelocytes, myelocytes andmetamyelocytes) > 1% indicates that a LEFT SHIFT is Present. Performed By: #### L 100.0100, L500.2500 ####[facility] [address] [place], [address] Lymphocytes/100 WBC (Bld) 29.8 % Normal 19-41 [facility] Comment on above: Performed By: #### L 100.0100, L500.2500 ####[facility] [address] [place], [address] MCH (RBC) [Entitic mass] 28.3 pg Normal 27.0-32.0 [facility] Comment on above: Performed By: #### L 100.0100, L500.2500 ####[facility] [address] [place], [address] MCHC (RBC) [Mass/Vol] 32.1 g/dL Normal 32-36 [facility] Comment on above: Performed By: #### L 100.0100, L500.2500 ####[facility] [address] [place], [address] MCV (RBC) [Entitic vol] 88.1 fL Normal 81-99 [facility] Comment on above: Performed By: #### L 100.0100, L500.2500 ####[facility] [address] [place], [address] Monocytes/100 WBC (Bld) 5.2 % Normal 0-10 [facility] Comment on above: Performed By: #### L 100.0100, L500.2500 ####[facility] [address] [place], [address] Neutrophils/100 WBC (Bld) 61.4 % Normal 47-70 [facility] Comment on above: Performed By: #### L 100.0100, L500.2500 ####[facility] [address] [place], [address] Nucleated RBC (Bld) [#/Vol] 0 10*3/uL Normal 0-5 [facility] Comment on above: Performed By: #### L 100.0100, L500.2500 ####[facility] [address] [place], [address] Platelet mean volume (Bld) [Entitic vol] 9.5 fL Normal 6.2-12.0 [facility] Comment on above: Performed By: #### L 100.0100, L500.2500 ####[facility] [address] [place], [address] Platelets (Bld) [#/Vol] 282 10*3/uL Normal 150-450 [facility] Comment on above: Performed By: #### L 100.0100, L500.2500 ####[facility] [address] [place], [address] RBC (Bld) [#/Vol] 4.13 10*6/uL Low 4.2-5.4 [facility] Comment on above: Performed By: #### L 100.0100, L500.2500 ####[facility] [address] [place], [address] RDW SD 43.5 fl Normal 35.1-43.9 [facility] Comment on above: Performed By: #### L 100.0100, L500.2500 ####[facility] [address] [place], [address] WBC (Bld) [#/Vol] 10.0 10*3/uL Normal 4.4-11.0 [facility] Comment on above: Performed By: #### L 100.0100, L500.2500 ####[facility] [address] [place], [address] Carbon dioxide, total [Moles /volume] in Central venous bloodOrdered By: Dereck Youssef on 11-12-2024 CO2 [Moles/Vol] 21.1 mmol/L 21.0-32.0 [facility] Chloride assayOrdered By: Rachel Youssef on 11-12-2024 Chloride [Moles/Vol] 110 mmol/L High 98-108 [facility] Eosinophil percentageOrdered By: Dereck Youssef on 11-12-2024 Eosinophils/100 WBC (Bld) 3.0 % 0-5 [facility] Erythrocyte distribution wid th ratioOrdered By: Dereck Youssef on 11-12-2024 Erythrocyte distribution width (RBC) [Ratio] 13.4 % 11.6-14.6 [facility] Erythrocyte distribution wid th standard deviationOrdered By: Dereck Youssef on 11-12-2024 Erythrocyte distribution width (RBC) [Ratio] 43.5 fl 35.1-43.9 [facility] Glomerular filtration rate ( GFR) estimation/1.73 sq m using serum, plasma, or whole bOrdered By: Dereck Youssef on 11-12-2024 GFR/1.73 sq M.predicted among non-blacks MDRD (S/P/Bld) [Vol rate/Area] 94 mL/min/{1.73_m2} >60 [facility] deOrdered By: Anuja Murcia on 11-12-2024 Glucose [Mass/Vol] 134 mg/dL High 74-106 [facility] Hematocrit Auto (Bld) [Volum e fraction]Ordered By: Dereck Youssef on 11-12-2024 Hematocrit (Bld) [Volume fraction] 36.4 % Low 37-47 [facility] Hemoglobin measurementOrdere d By: Dereck Youssef on 11-12-2024 Hemoglobin (Bld) [Mass/Vol] 11.7 g/dL Low 12.0-15.0 [facility] Immature granulocytes/100 WB C Auto (Bld)Ordered By: Dereck Youssef on 11-12-2024 Immature granulocytes/100 WBC (Bld) 0.300 % 0.0-0.9 [facility] MCV (mean corpuscular volume ) determinationOrdered By: Dereck Youssef on 11-12-2024 MCV (RBC) [Entitic vol] 88.1 fL 81-99 [facility] Magnetic resonance imaging r eportOrdered By: Landon White on 11-12-2024 Study report [facility] Work Phone: Mean corpuscular hemoglobin (MCH) determinationOrdered By: Dereck Youssef on 11-12-2024 MCH (RBC) [Entitic mass] 28.3 pg 27.0-32.0 [facility] Monocyte percentageOrdered B y: Dereck Youssef on 11-12-2024 Monocytes/100 WBC (Bld) 5.2 % 0-10 [facility] Neutrophil percentageOrdered By: Dereck Youssef on 11-12-2024 Neutrophils/100 WBC (Bld) 61.4 % 47-70 [facility] Platelet countOrdered By: Rachel Youssef on 11-12-2024 Platelets (Bld) [#/Vol] 282 10*3/uL 150-450 [facility] Potassium measurement (mass/ volume)Ordered By: Dereck Youssef on 11-12-2024 Potassium (Unsp spec) [Mass/Vol] 3.3 mmol/L 3.3-5.1 [facility] RBC Auto (Bld) [#/Vol]Ordere d By: Dereck Youssef on 11-12-2024 RBC (Bld) [#/Vol] 4.13 10*6/uL Low 4.2-5.4 [facility] Serum creatinine measurement (mass/volume)Ordered By: Dereck Youssef on 11-12-2024 Creatinine [Mass/Vol] 0.66 mg/dL Low 0.70-1.20 [facility] Serum glucose measurement (m ass/volume)Ordered By: Dereck Youssef on 11-12-2024 Glucose [Mass/Vol] 146 mg/dL High 70-99 [facility] Serum or plasma calcium timbo urement (mass/volume)Ordered By: Dereck Youssef on 11-12-2024 Calcium [Mass/Vol] 8.6 mg/dL 7.6-11.0 [facility] Serum or plasma urea nitroge n measurement (mass/volume)Ordered By: Dereck Youssef on 11-12-2024 Urea nitrogen [Mass/Vol] 10 mg/dL 4-19 [facility] Sodium levelOrdered By: Howard Youssef on 11-12-2024 Sodium [Moles/Vol] 142 mmol/L 133-145 [facility] White blood cell (WBC) count Ordered By: Dereck Youssef on 11-12-2024 WBC (Bld) [#/Vol] 10.0 10*3/uL 4.4-11.0 [facility] Basic Metabolic Profile (BMP )on 11-11-2024 BUN/CRE 23.1 RATIO High 10-20 [facility] Comment on above: Performed By: #### L 100.0100, L500.2500 ####[facility] [id number] [place], [address] Calcium [Mass/Vol] 8.6 mg/dL Normal 7.6-11.0 [facility] Comment on above: Performed By: #### L 100.0100, L500.2500 ####[facility] [id number] [place], [address] Chloride [Moles/Vol] 109 mmol/L High 98-108 [facility] Comment on above: Performed By: #### L 100.0100, L500.2500 ####[facility] [address] [place], [address] CO2 [Moles/Vol] 22.4 mmol/L Normal 21.0-32.0 [facility] Comment on above: Performed By: #### L 100.0100, L500.2500 ####[facility] [address] [place], [address] Creatinine [Mass/Vol] 0.66 mg/dL Low 0.70-1.20 [facility] Comment on above: Performed By: #### L 100.0100, L500.2500 ####[facility] [address] [place], [address] ECRCL 55.70 ml/min Normal 50-250 [facility] Comment on above: Performed By: #### L 100.0100, L500.2500 ####[facility] [address] [place], [address] GAP 10 Normal 5-15 [facility] Comment on above: Performed By: #### L 100.0100, L500.2500 ####[facility] [address] [place], [address] GFR/1.73 sq M.predicted among non-blacks MDRD (S/P/Bld) [Vol rate/Area] 94 mL/min/{1.73_m2} Normal >60 [facility] Comment on above: Result Comment: mL/m in/1.73m2 CKD-EPI Creatinine Equation (2020) Performed By: #### L 100.0100, L500.2500 ####[facility] [address] [place], [address] Glucose [Mass/Vol] 131 mg/dL High 70-99 [facility] Comment on above: Performed By: #### L 100.0100, L500.2500 ####[facility] [address] [place], [address] Potassium [Moles/Vol] 3.4 mmol/L Normal 3.3-5.1 [facility] Comment on above: Performed By: #### L 100.0100, L500.2500 ####[facility] [address] [place], [address] Sodium [Moles/Vol] 142 mmol/L Normal 133-145 [facility] Comment on above: Performed By: #### L 100.0100, L500.2500 ####[facility] [address] [place], [address] Urea nitrogen [Mass/Vol] 15 mg/dL Normal 4-19 [facility] Comment on above: Performed By: #### L 100.0100, L500.2500 ####[facility] [address] [place], [address] Bedside Glucoseon 11-11-2024 FINGERSTICK GLU 157 mg/dL High 74-106 [facility] Comment on above: Result Comment: GERALDO GEMENT OF PATIENT CARE PER NURSING PROTOCOL Performed By: #### L 501.080 ####[facility] [address] [place], [address] FINGERSTICK GLU 179 mg/dL High 74-106 [facility] Comment on above: Result Comment: GERALDO GEMENT OF PATIENT CARE PER NURSING PROTOCOL Performed By: #### L 501.080 ####[facility] [address] [place], [address] FINGERSTICK GLU 186 mg/dL High -106 [facility] Comment on above: Result Comment: GERALDO GEMENT OF PATIENT CARE PER NURSING PROTOCOL Performed By: #### L 501.080 ####[facility] [address] [place], [address] FINGERSTICK GLU 141 mg/dL High 74-106 [facility] Comment on above: Result Comment: GERALDO GEMENT OF PATIENT CARE PER NURSING PROTOCOL Performed By: #### L 501.080 ####[facility] [address] [place], [address] Bilirubin Test strip Ql (U)O rdered By: Dereck Youssef on 11-11-2024 Bilirubin Ql (U) Negative Negative [facility] CBC W/Diff, Automatedon 09-3 0-2024 Absolute Lymph 3.35 X10 3/uL Normal 0.83-4.51 [facility] Comment on above: Performed By: #### L 100.0100, L500.2500 ####[facility] [address] [place], [address] Absolute Neut 5.2 X10 3/uL Normal 2.0-7.7 [facility] Comment on above: Performed By: #### L 100.0100, L500.2500 ####[facility] [address] [place], [address] Basophils/100 WBC (Bld) 0.2 % Normal 0-1 [facility] Comment on above: Performed By: #### L 100.0100, L500.2500 ####[facility] [address] [place], [address] Eosinophils/100 WBC (Bld) 3.0 % Normal 0-5 [facility] Comment on above: Performed By: #### L 100.0100, L500.2500 ####[facility] [address] [place], [address] Erythrocyte distribution width (RBC) [Ratio] 13.7 % Normal 11.6-14.6 [facility] Comment on above: Performed By: #### L 100.0100, L500.2500 ####[facility] [address] [place], [address] Hematocrit (Bld) [Volume fraction] 35.9 % Low 37-47 [facility] Comment on above: Performed By: #### L 100.0100, L500.2500 ####[facility] [address] [place], [address] Hemoglobin (Bld) [Mass/Vol] 11.3 g/dL Low 12.0-15.0 [facility] Comment on above: Performed By: #### L 100.0100, L500.2500 ####[facility] [address] [place], [address] IG% 0.400 Normal 0.0-0.9 [facility] Comment on above: Result Comment: IG% - Immature Granulocytes (promyelocytes, myelocytes andmetamyelocytes) > 1% indicates that a LEFT SHIFT is Present. Performed By: #### L 100.0100, L500.2500 ####[facility] [address] [place], [address] Lymphocytes/100 WBC (Bld) 35.1 % Normal 19-41 [facility] Comment on above: Performed By: #### L 100.0100, L500.2500 ####[facility] [address] [place], [address] MCH (RBC) [Entitic mass] 28.2 pg Normal 27.0-32.0 [facility] Comment on above: Performed By: #### L 100.0100, L500.2500 ####[facility] [address] [place], [address] MCHC (RBC) [Mass/Vol] 31.5 g/dL Low 32-36 [facility] Comment on above: Performed By: #### L 100.0100, L500.2500 ####[facility] [address] [place], [address] MCV (RBC) [Entitic vol] 89.5 fL Normal 81-99 [facility] Comment on above: Performed By: #### L 100.0100, L500.2500 ####[facility] [address] [place], [address] Monocytes/100 WBC (Bld) 6.3 % Normal 0-10 [facility] Comment on above: Performed By: #### L 100.0100, L500.2500 ####[facility] [address] [place], [address] Neutrophils/100 WBC (Bld) 55.0 % Normal 47-70 [facility] Comment on above: Performed By: #### L 100.0100, L500.2500 ####[facility] [address] [place], [address] Nucleated RBC (Bld) [#/Vol] 0 10*3/uL Normal 0-5 [facility] Comment on above: Performed By: #### L 100.0100, L500.2500 ####[facility] [address] [place], [address] Platelet mean volume (Bld) [Entitic vol] 9.6 fL Normal 6.2-12.0 [facility] Comment on above: Performed By: #### L 100.0100, L500.2500 ####[facility] [address] [place], [address] Platelets (Bld) [#/Vol] 288 10*3/uL Normal 150-450 [facility] Comment on above: Performed By: #### L 100.0100, L500.2500 ####[facility] [address] [place], [address] RBC (Bld) [#/Vol] 4.01 10*6/uL Low 4.2-5.4 [facility] Comment on above: Performed By: #### L 100.0100, L500.2500 ####[facility] [address] [place], [address] RDW SD 45.2 fl High 35.1-43.9 [facility] Comment on above: Performed By: #### L 100.0100, L500.2500 ####[facility] [address] [place], [address] WBC (Bld) [#/Vol] 9.5 10*3/uL Normal 4.4-11.0 [facility] Comment on above: Performed By: #### L 100.0100, L500.2500 ####[facility] [address] [place], [address] Ketones Test strip Ql (U)Ord ered By: Dereck Youssef on 11-11-2024 Ketones Ql (U) Negative Negative [facility] Mucus LM Ql (Urine sed)Order ed By: Dereck Youssef on 11-11-2024 Mucus Ql (Urine sed) 0 SEEN /hpf [facility] Nitrite Test strip Ql (U)Ord ered By: Dereck Youssef on 11-11-2024 Nitrite Ql (U) Negative Negative [facility] Protein Test strip Ql (U)Ord ered By: Dereck Youssef on 11-11-2024 Protein Ql (U) 30 mg/dl High Negative [facility] Squamous epithelial cells de tection in urine sediment by light microscopyOrdered By: Dereck Youssef on 11-11-2024 Epithelial cells.squamous LM Ql (Urine sed) 0 SEEN /hpf 5- [facility] Urinalysis, Completeon 11-11 BACTERIA RARE Normal None Seen [facility] Comment on above: Order Comment: NITA TER SPECIMEN Performed By: #### L 400.0001 ####[facility] [address] [place], [address] RBC 10-25 SEEN Normal 0-5 [facility] Comment on above: Order Comment: NITA TER SPECIMEN Performed By: #### L 400.0001 ####[facility] [address] [place], [address] WBC 10-25 SEEN Normal 0-5 [facility] Comment on above: Order Comment: NITA TER SPECIMEN Performed By: #### L 400.0001 ####[facility] [address] [place], [address] EPI,SQUAMOUS 0 SEEN Normal 5-10 [facility] Comment on above: Order Comment: NITA TER SPECIMEN Performed By: #### L 400.0001 ####[facility] [address] [place], [place], [address] Mucus Ql (Urine sed) 0 SEEN Normal [facility] Comment on above: Order Comment: NITA TER SPECIMEN Performed By: #### L 400.0001 ####[facility] [address] [place], [place], [address] Urine clarityOrdered By: Genaro Youssef on 11-11-2024 Clarity (U) Clear Clear [facility] Urine color determinationOrd ered By: Dereck Youssef on 11-11-2024 Color (U) Yellow Yellow [facility] Urine glucose detectionOrder ed By: Dereck Youssef on 11-11-2024 Glucose Ql (U) Normal mg/dl Normal [facility] Urine leukocyte esterase det ection by dipstickOrdered By: Dereck Youssef on 11-11-2024 Leukocyte esterase Test strip Ql (U) Negative Negative [facility] Urine pHOrdered By: Dereck Youssef on 11-11-2024 pH (U) 8.0 [pH] 5.0 - 8.0 [facility] Urine sediment bacteria coun t by microscopy (number/high power field)Ordered By: Dereck Youssef on 11-11-2024 Bacteria LM.HPF (Urine sed) [#/Area] RARE /hpf None Seen [facility] Urine specific gravity measu rementOrdered By: Dereck Youssef on 11-11-2024 Specific gravity (U) [Rel density] 1.010 1.002-1.030 [facility] Urine urobilinogen measureme ntOrdered By: Dereck Youssef on 11-11-2024 Urobilinogen Ql (U) Normal mg/dl Normal [facility] White blood cell countOrdere d By: Dereck Youssef on 11-11-2024 White blood cell count 10-25 SEEN /hpf 0-5 [facility] Basic Metabolic Profile (BMP )on 11-10-2024 BUN/CRE 32.6 RATIO High 10-20 [facility] Comment on above: Performed By: #### L 500.2500, L100.0100 ####[facility] [address] [place], [address] Calcium [Mass/Vol] 8.9 mg/dL Normal 7.6-11.0 [facility] Comment on above: Performed By: #### L 500.2500, L100.0100 ####[facility] [address] [place], [address] Chloride [Moles/Vol] 110 mmol/L High 98-108 [facility] Comment on above: Performed By: #### L 500.2500, L100.0100 ####[facility] [address] [place], [address] CO2 [Moles/Vol] 20.3 mmol/L Low 21.0-32.0 [facility] Comment on above: Performed By: #### L 500.2500, L100.0100 ####[facility] [address] [place], [address] Creatinine [Mass/Vol] 0.82 mg/dL Normal 0.70-1.20 [facility] Comment on above: Performed By: #### L 500.2500, L100.0100 ####[facility] [address] [place], [address] ECRCL 54.34 ml/min Normal 50-250 [facility] Comment on above: Performed By: #### L 500.2500, L100.0100 ####[facility] [address] [place], [address] GAP 11 Normal 5-15 [facility] Comment on above: Performed By: #### L 500.2500, L100.0100 ####[facility] [address] [place], [address] GFR/1.73 sq M.predicted among non-blacks MDRD (S/P/Bld) [Vol rate/Area] 77 mL/min/{1.73_m2} Normal >60 [facility] Comment on above: Result Comment: mL/m in/1.73m2 CKD-EPI Creatinine Equation (2020) Performed By: #### L 500.2500, L100.0100 ####[facility] [address] [place], [address] Glucose [Mass/Vol] 135 mg/dL High 70-99 [facility] Comment on above: Performed By: #### L 500.2500, L100.0100 ####[facility] [address] [place], [address] Potassium [Moles/Vol] 3.7 mmol/L Normal 3.3-5.1 [facility] Comment on above: Result Comment: Hemo lysis present, Results??could be affected.?? Performed By: #### L 500.2500, L100.0100 ####[facility] [address] [place], [address] Sodium [Moles/Vol] 142 mmol/L Normal 133-145 [facility] Comment on above: Performed By: #### L 500.2500, L100.0100 ####[facility] [address] [place], [address] Urea nitrogen [Mass/Vol] 27 mg/dL High 4-19 [facility] Comment on above: Performed By: #### L 500.2500, L100.0100 ####[facility] [address] [place], [address] Bedside Glucoseon 11-10-2024 FINGERSTICK GLU 145 mg/dL High 74-106 [facility] Comment on above: Result Comment: GERALDO BEGUM OF PATIENT CARE PER NURSING PROTOCOL Performed By: #### L 501.080 ####[facility] [address] [place], [address] FINGERSTICK GLU 168 mg/dL High 74-106 [facility] Comment on above: Result Comment: GERALDO GEMENT OF PATIENT CARE PER NURSING PROTOCOL Performed By: #### L 501.080 ####[facility] [address] [place], [address] FINGERSTICK GLU 137 mg/dL High 74-106 [facility] Comment on above: Result Comment: GERALDO GEMENT OF PATIENT CARE PER NURSING PROTOCOL Performed By: #### L 501.080 ####[facility] [address] [place], [address] FINGERSTICK GLU 132 mg/dL High -106 [facility] Comment on above: Result Comment: GERALDO GEMENT OF PATIENT CARE PER NURSING PROTOCOL Performed By: #### L 501.080 ####[facility] [address] [place], [address] FINGERSTICK GLU 158 mg/dL High -106 [facility] Comment on above: Result Comment: GERALDO GEMENT OF PATIENT CARE PER NURSING PROTOCOL Performed By: #### L 501.080 ####[facility] [address] [place], [address] CBC W/Diff, Automatedon 09-2 Absolute Lymph 3.40 X10 3/uL Normal 0.83-4.51 [facility] Comment on above: Performed By: #### L 500.2500, L100.0100 ####[facility] [address] [place], [address] Absolute Neut 7.3 X10 3/uL Normal 2.0-7.7 [facility] Comment on above: Performed By: #### L 500.2500, L100.0100 ####[facility] [address] [place], [address] Basophils/100 WBC (Bld) 0.2 % Normal 0-1 [facility] Comment on above: Performed By: #### L 500.2500, L100.0100 ####[facility] [address] [place], [address] Eosinophils/100 WBC (Bld) 1.8 % Normal 0-5 [facility] Comment on above: Performed By: #### L 500.2500, L100.0100 ####[facility] [address] [place], [address] Erythrocyte distribution width (RBC) [Ratio] 14.0 % Normal 11.6-14.6 [facility] Comment on above: Performed By: #### L 500.2500, L100.0100 ####[facility] [address] [place], [address] Hematocrit (Bld) [Volume fraction] 35.0 % Low 37-47 [facility] Comment on above: Performed By: #### L 500.2500, L100.0100 ####[facility] [address] [place], [address] Hemoglobin (Bld) [Mass/Vol] 11.7 g/dL Low 12.0-15.0 [facility] Comment on above: Performed By: #### L 500.2500, L100.0100 ####[facility] [address] [place], [address] IG% 0.300 Normal 0.0-0.9 [facility] Comment on above: Result Comment: IG% - Immature Granulocytes (promyelocytes, myelocytes andmetamyelocytes) > 1% indicates that a LEFT SHIFT is Present. Performed By: #### L 500.2500, L100.0100 ####[facility] [address] [place], [address] Lymphocytes/100 WBC (Bld) 29.0 % Normal 19-41 [facility] Comment on above: Performed By: #### L 500.2500, L100.0100 ####[facility] [address] [place], [address] MCH (RBC) [Entitic mass] 29.2 pg Normal 27.0-32.0 [facility] Comment on above: Performed By: #### L 500.2500, L100.0100 ####[facility] [address] [place], [address] MCHC (RBC) [Mass/Vol] 33.4 g/dL Normal 32-36 [facility] Comment on above: Performed By: #### L 500.2500, L100.0100 ####[facility] [address] [place], [address] MCV (RBC) [Entitic vol] 87.3 fL Normal 81-99 [facility] Comment on above: Performed By: #### L 500.2500, L100.0100 ####[facility] [address] [place], [address] Monocytes/100 WBC (Bld) 6.1 % Normal 0-10 [facility] Comment on above: Performed By: #### L 500.2500, L100.0100 ####[facility] [address] [place], [address] Neutrophils/100 WBC (Bld) 62.6 % Normal 47-70 [facility] Comment on above: Performed By: #### L 500.2500, L100.0100 ####[facility] [address] [place], [address] Nucleated RBC (Bld) [#/Vol] 0 10*3/uL Normal 0-5 [facility] Comment on above: Performed By: #### L 500.2500, L100.0100 ####[facility] [address] [place], [address] Platelet mean volume (Bld) [Entitic vol] 9.2 fL Normal 6.2-12.0 [facility] Comment on above: Performed By: #### L 500.2500, L100.0100 ####[facility] [address] [place], [address] Platelets (Bld) [#/Vol] 292 10*3/uL Normal 150-450 [facility] Comment on above: Performed By: #### L 500.2500, L100.0100 ####[facility] [address] [place], [address] RBC (Bld) [#/Vol] 4.01 10*6/uL Low 4.2-5.4 [facility] Comment on above: Performed By: #### L 500.2500, L100.0100 ####[facility] [address] [place], [address] RDW SD 45.6 fl High 35.1-43.9 [facility] Comment on above: Performed By: #### L 500.2500, L100.0100 ####[facility] [address] [place], [address] WBC (Bld) [#/Vol] 11.7 10*3/uL High 4.4-11.0 [facility] Comment on above: Performed By: #### L 500.2500, L100.0100 ####[facility] [address] [place], [address] Electrocardiogram reportOrde red By: Martina Rendon on 11-10-2024 EKG study [facility] Other Phone: Basic Metabolic Profile (BMP )on 11-09-2024 BUN/CRE 23.2 RATIO High 10-20 [facility] Comment on above: Performed By: #### L 500.2500 ####[facility] [address] [place], [address] Calcium [Mass/Vol] 9.2 mg/dL Normal 7.6-11.0 [facility] Comment on above: Performed By: #### L 500.2500 ####[facility] [address] [place], [address] Chloride [Moles/Vol] 106 mmol/L Normal 98-108 [facility] Comment on above: Performed By: #### L 500.2500 ####[facility] [address] [place], [address] CO2 [Moles/Vol] 20.6 mmol/L Low 21.0-32.0 [facility] Comment on above: Performed By: #### L 500.2500 ####[facility] [address] [place], [address] Creatinine [Mass/Vol] 1.18 mg/dL Normal 0.70-1.20 [facility] Comment on above: Performed By: #### L 500.2500 ####[facility] [address] [place], [address] ECRCL 37.76 ml/min Low 50-250 [facility] Comment on above: Performed By: #### L 500.2500 ####[facility] [address] [place], [address] GAP 14 Normal 5-15 [facility] Comment on above: Performed By: #### L 500.2500 ####[facility] [address] [place], [address] GFR/1.73 sq M.predicted among non-blacks MDRD (S/P/Bld) [Vol rate/Area] 49 mL/min/{1.73_m2} Low >60 [facility] Comment on above: Result Comment: mL/m in/1.73m2 CKD-EPI Creatinine Equation (2020) Performed By: #### L 500.2500 ####[facility] [address] [place], [address] Glucose [Mass/Vol] 182 mg/dL High 70-99 [facility] Comment on above: Performed By: #### L 500.2500 ####[facility] [address] [place], [address] Potassium [Moles/Vol] 3.8 mmol/L Normal 3.3-5.1 [facility] Comment on above: Result Comment: Hemo lysis present, Results??could be affected.?? Performed By: #### L 500.2500 ####[facility] [address] [place], [address] Sodium [Moles/Vol] 140 mmol/L Normal 133-145 [facility] Comment on above: Performed By: #### L 500.2500 ####[facility] [address] [place], [address] Urea nitrogen [Mass/Vol] 27 mg/dL High 4-19 [facility] Comment on above: Performed By: #### L 500.2500 ####[facility] [address] [place], [address] Bedside Glucoseon 11-09-2024 FINGERSTICK GLU 119 mg/dL High 74-106 [facility] Comment on above: Result Comment: GERALDO GEMENT OF PATIENT CARE PER NURSING PROTOCOL Performed By: #### L 501.080 ####[facility] [address] [place], [address] FINGERSTICK GLU 153 mg/dL High 74-106 [facility] Comment on above: Result Comment: GERALDO GEMENT OF PATIENT CARE PER NURSING PROTOCOL Performed By: #### L 501.080 ####[facility] [address] [place], [address] FINGERSTICK GLU 169 mg/dL High 74-106 [facility] Comment on above: Result Comment: GERALDO GEMENT OF PATIENT CARE PER NURSING PROTOCOL Performed By: #### L 501.080 ####[facility] [address] [place], [address] FINGERSTICK GLU 161 mg/dL High 74-106 [facility] Comment on above: Result Comment: GERALDO BEGUM OF PATIENT CARE PER NURSING PROTOCOL Performed By: #### L 501.080 ####[facility] [address] [place], [address] CBC W/Diff, Automatedon 09-2 Absolute Lymph 2.76 X10 3/uL Normal 0.83-4.51 [facility] Comment on above: Performed By: #### L 100.0100 ####[facility] [address] [place], [address] Absolute Neut 11.3 X10 3/uL High 2.0-7.7 [facility] Comment on above: Performed By: #### L 100.0100 ####[facility] [address] [place], [address] Basophils/100 WBC (Bld) 0.1 % Normal 0-1 [facility] Comment on above: Performed By: #### L 100.0100 ####[facility] [address] [place], [address] Eosinophils/100 WBC (Bld) 0.8 % Normal 0-5 [facility] Comment on above: Performed By: #### L 100.0100 ####[facility] [address] [place], [address] Erythrocyte distribution width (RBC) [Ratio] 14.0 % Normal 11.6-14.6 [facility] Comment on above: Performed By: #### L 100.0100 ####[facility] [address] [place], [address] Hematocrit (Bld) [Volume fraction] 39.0 % Normal 37-47 [facility] Comment on above: Performed By: #### L 100.0100 ####[facility] [address] [place], [address] Hemoglobin (Bld) [Mass/Vol] 12.6 g/dL Normal 12.0-15.0 [facility] Comment on above: Performed By: #### L 100.0100 ####[facility] [address] [place], [address] IG% 0.500 Normal 0.0-0.9 [facility] Comment on above: Result Comment: IG% - Immature Granulocytes (promyelocytes, myelocytes andmetamyelocytes) > 1% indicates that a LEFT SHIFT is Present. Performed By: #### L 100.0100 ####[facility] [address] [place], [address] Lymphocytes/100 WBC (Bld) 17.9 % Low 19-41 [facility] Comment on above: Performed By: #### L 100.0100 ####[facility] [address] [place], [address] MCH (RBC) [Entitic mass] 28.6 pg Normal 27.0-32.0 [facility] Comment on above: Performed By: #### L 100.0100 ####[facility] [address] [place], [address] MCHC (RBC) [Mass/Vol] 32.3 g/dL Normal 32-36 [facility] Comment on above: Performed By: #### L 100.0100 ####[facility] [address] [place], [address] MCV (RBC) [Entitic vol] 88.6 fL Normal 81-99 [facility] Comment on above: Performed By: #### L 100.0100 ####[facility] [address] [place], [address] Monocytes/100 WBC (Bld) 7.3 % Normal 0-10 [facility] Comment on above: Performed By: #### L 100.0100 ####[facility] [address] [place], [address] Neutrophils/100 WBC (Bld) 73.4 % High 47-70 [facility] Comment on above: Performed By: #### L 100.0100 ####[facility] [address] [place], [address] Nucleated RBC (Bld) [#/Vol] 0 10*3/uL Normal 0-5 [facility] Comment on above: Performed By: #### L 100.0100 ####[facility] [address] [place], [address] Platelet mean volume (Bld) [Entitic vol] 9.0 fL Normal 6.2-12.0 [facility] Comment on above: Performed By: #### L 100.0100 ####[facility] [address] [place], [address] Platelets (Bld) [#/Vol] 358 10*3/uL Normal 150-450 [facility] Comment on above: Performed By: #### L 100.0100 ####[facility] [address] [place], [address] RBC (Bld) [#/Vol] 4.40 10*6/uL Normal 4.2-5.4 [facility] Comment on above: Performed By: #### L 100.0100 ####[facility] [address] [place], [address] RDW SD 45.3 fl High 35.1-43.9 [facility] Comment on above: Performed By: #### L 100.0100 ####[facility] [address] [place], [address] WBC (Bld) [#/Vol] 15.4 10*3/uL High 4.4-11.0 [facility] Comment on above: Performed By: #### L 100.0100 ####[facility] [address] [place], [address] Abdomen/Pelvis W IV Cont ONL Yon 11-08-2024 Abdomen/Pelvis W IV Cont ONLY Normal [facility] Alcohol, Blood (Medical)-Ser umon 11-08-2024 SERUM ETOH < 10.1 Normal <=10.0 [facility] Comment on above: Result Comment: This test is for medical purposes only. The legaldefinition of intoxication varies according to local law. Performed By: #### L 505.5000, L501.9100 ####[facility] [address] [place], [address] Amphetamine detection with 1 000 ng/mL as cutoffOrdered By: Anuja Brown on 11-08-2024 Amphetamines Screen method >1000 ng/mL Ql (U) Negative < 200 ng/mL [facility] Basic Metabolic Profile (BMP )on 11-08-2024 BUN/CRE 14.9 RATIO Normal 10-20 [facility] Comment on above: Performed By: #### L 501.5200, L501.2300, L500.2500 ####[facility] [address] [place], [address] Calcium [Mass/Vol] 9.4 mg/dL Normal 7.6-11.0 [facility] Comment on above: Performed By: #### L 501.5200, L501.2300, L500.2500 ####[facility] [address] [place], [address] Chloride [Moles/Vol] 107 mmol/L Normal 98-108 [facility] Comment on above: Performed By: #### L 501.5200, L501.2300, L500.2500 ####[facility] [address] [place], [address] CO2 [Moles/Vol] 21.7 mmol/L Normal 21.0-32.0 [facility] Comment on above: Performed By: #### L 501.5200, L501.2300, L500.2500 ####[facility] [address] [place], [address] Creatinine [Mass/Vol] 1.05 mg/dL Normal 0.70-1.20 [facility] Comment on above: Performed By: #### L 501.5200, L501.2300, L500.2500 ####[facility] [address] [place], [address] ECRCL 42.44 ml/min Low 50-250 [facility] Comment on above: Performed By: #### L 501.5200, L501.2300, L500.2500 ####[facility] [address] [place], [address] GAP 14 Normal 5-15 [facility] Comment on above: Performed By: #### L 501.5200, L501.2300, L500.2500 ####[facility] [address] [place], [address] GFR/1.73 sq M.predicted among non-blacks MDRD (S/P/Bld) [Vol rate/Area] 57 mL/min/{1.73_m2} Low >60 [facility] Comment on above: Result Comment: mL/m in/1.73m2 CKD-EPI Creatinine Equation (2020) Performed By: #### L 501.5200, L501.2300, L500.2500 ####[facility] [address] [place], [address] Glucose [Mass/Vol] 179 mg/dL High 70-99 [facility] Comment on above: Performed By: #### L 501.5200, L501.2300, L500.2500 ####[facility] [address] [place], [address] Potassium [Moles/Vol] 2.9 mmol/L Low 3.3-5.1 [facility] Comment on above: Performed By: #### L 501.5200, L501.2300, L500.2500 ####[facility] [address] [place], [address] Sodium [Moles/Vol] 142 mmol/L Normal 133-145 [facility] Comment on above: Performed By: #### L 501.5200, L501.2300, L500.2500 ####[facility] [address] [place], [address] Urea nitrogen [Mass/Vol] 16 mg/dL Normal 4-19 [facility] Comment on above: Performed By: #### L 501.5200, L501.2300, L500.2500 ####[facility] [address] [place], [address] Bedside Glucoseon 11-08-2024 FINGERSTICK GLU 170 mg/dL High 74-106 [facility] Comment on above: Result Comment: GERALDO GEMENT OF PATIENT CARE PER NURSING PROTOCOL Performed By: #### L 501.080 ####[facility] [address] [place], [address] FINGERSTICK GLU 140 mg/dL High 74-106 [facility] Comment on above: Result Comment: GERALDO GEMENT OF PATIENT CARE PER NURSING PROTOCOL Performed By: #### L 501.080 ####[facility] [address] [place], [address] FINGERSTICK GLU 248 mg/dL High 74-106 [facility] Comment on above: Result Comment: GERALDO GEMENT OF PATIENT CARE PER NURSING PROTOCOL Performed By: #### L 501.080 ####[facility] [address] [place], [address] FINGERSTICK GLU 115 mg/dL High 74-106 [facility] Comment on above: Result Comment: GERALDO GEMENT OF PATIENT CARE PER NURSING PROTOCOL Performed By: #### L 501.080 ####[facility] [address] [place], [address] FINGERSTICK GLU 67 mg/dL Low 74-106 [facility] Comment on above: Result Comment: GERALDO GEMENT OF PATIENT CARE PER NURSING PROTOCOL Performed By: #### L 501.080 ####[facility] [address] [place], [address] FINGERSTICK GLU 87 mg/dL Normal 74-106 [facility] Comment on above: Result Comment: GERALDO GEMENT OF PATIENT CARE PER NURSING PROTOCOL Performed By: #### L 501.080 ####[facility] [address] [place], [address] FINGERSTICK GLU 222 mg/dL High 74-106 [facility] Comment on above: Result Comment: GERALDO GEMENT OF PATIENT CARE PER NURSING PROTOCOL Performed By: #### L 501.080 ####[facility] [address] [place], [address] FINGERSTICK GLU 265 mg/dL High 74-106 [facility] Comment on above: Result Comment: GERALDO GEMENT OF PATIENT CARE PER NURSING PROTOCOL Performed By: #### L 501.080 ####[facility] [address] [place], [address] FINGERSTICK GLU 359 mg/dL High 74-106 [facility] Comment on above: Result Comment: GERALDO GEMENT OF PATIENT CARE PER NURSING PROTOCOL Performed By: #### L 501.080 ####[facility] [address] [place], [address] FINGERSTICK GLU 305 mg/dL High 74-106 [facility] Comment on above: Result Comment: GERALDO GEMENT OF PATIENT CARE PER NURSING PROTOCOL Performed By: #### L 501.080 ####[facility] [address] [place], [address] FINGERSTICK GLU 352 mg/dL High 74-106 [facility] Comment on above: Result Comment: GERALDO GEMENT OF PATIENT CARE PER NURSING PROTOCOL Performed By: #### L 501.080 ####[facility] [address] [place], [address] FINGERSTICK GLU 388 mg/dL High 74-106 [facility] Comment on above: Result Comment: GERALDO GEMENT OF PATIENT CARE PER NURSING PROTOCOL Performed By: #### L 501.080 ####[facility] [address] [place], [address] FINGERSTICK GLU 249 mg/dL High 74-106 [facility] Comment on above: Result Comment: GERALDO GEMENT OF PATIENT CARE PER NURSING PROTOCOL Performed By: #### L 501.080 ####[facility] [address] [place], [address] FINGERSTICK GLU 248 mg/dL High 74-106 [facility] Comment on above: Result Comment: GERALDO GEMENT OF PATIENT CARE PER NURSING PROTOCOL Performed By: #### L 501.080 ####[facility] [address] [place], [address] Beta-Hydroxbytyrateon 2024 BETA-HYDROXYBUT 3.6 mmol/L High 0.0-0.3 [facility] Comment on above: Performed By: #### L 501.6901 ####[facility] [address] [place], [address] BETA-HYDROXYBUT 3.1 mmol/L High 0.0-0.3 [facility] Comment on above: Performed By: #### L 501.5200, L501.6901 ####[facility] [address] [place], [address] Beta-hydroxybutyrateOrdered By: Anuja Brown on 11-08-2024 Beta hydroxybutyrate [Mass/Vol] 3.6 mmol/L High 0.0-0.3 [facility] Blood Gases by CPSon 025 Base excess Calc (Bld) [Moles/Vol] -5 mmol/L Low -2 to +2 [facility] Comment on above: Performed By: #### L 8999.0800 ####[facility] [address] [place], [address] Blood Gas Type ART Normal [facility] Comment on above: Performed By: #### L 8999.0800 ####[facility] [address] [place], [address] CO2 [Moles/Vol] 17 mmol/L Normal [facility] Comment on above: Performed By: #### L 8999.0800 ####[facility] [address] [place], [address] HCO3 (Bld) [Moles/Vol] 16.2 mmol/L Low 22-26 [facility] Comment on above: Performed By: #### L 0.0800 ####[facility] [address] [place], [address] Mode Not entered Normal [facility] Comment on above: Performed By: #### L 8999.0800 ####[facility] [address] [place], [address] O2 Delivery Dev Room Air Normal [facility] Comment on above: Performed By: #### L 0.0800 ####[facility] [address] [place], [address] pCO2 16.4 mmHg Invalid Interpretation Code 35-45 [facility] Comment on above: Performed By: #### L 8999.0800 ####[facility] [address] [place], [address] pH (Bld) 7.60 [pH] Invalid Interpretation Code 7.35-7.45 [facility] Comment on above: Performed By: #### L 0.0800 ####[facility] [address] [place], [address] PO2 96 mmHG Normal 75-100 [facility] Comment on above: Performed By: #### L 9000.0800 ####[facility] [address] [place], [address] Read Back By Yes Normal [facility] Comment on above: Performed By: #### L 9000.0800 ####[facility] [address] [place], [address] Results To Noel Normal [facility] Comment on above: Performed By: #### L 9000.0800 ####[facility] [address] [place], [address] SITE R Radial Normal [facility] Comment on above: Performed By: #### L 9000.0800 ####[facility] [address] [place], [address] SO2 99 Normal 95-99 [facility] Comment on above: Performed By: #### L 9000.0800 ####[facility] [address] [place], [address] Time Given 02:17:22 [facility] Comment on above: Performed By: #### L 9000.0800 ####[facility] [address] [place], [address] Blood base excess determinat ionOrdered By: Anuja Brown on 11-08-2024 Base excess Calc (BldV) [Moles/Vol] -5 mmol/L Low -2-2 [facility] Blood bicarbonate measuremen tOrdered By: Anuja Brown on 11-08-2024 HCO3 (Bld) [Moles/Vol] 16.2 mmol/L Low 22-26 [facility] Brain/Head without Contrasto n 11-08-2024 Brain/Head without Contrast Normal [facility] CO2 (BldV) [Moles/Vol]Ordere marichuy By: Corinnegrace Villalobos on 11-08-2024 CO2 [Moles/Vol] 16 mmol/L Low 23-33 [facility] Calculated very low density lipoprotein (VLDL) cholesterol measurementOrdered By: Anuja Brown on 11-08-2024 Calculated very low density lipoprotein (VLDL) cholesterol measurement 17 mg/dL 5-40 [facility] Electrolyte Panelon 11-09-19 25 Chloride [Moles/Vol] 105 mmol/L Normal 98-108 [facility] Comment on above: Performed By: #### L 501.5294, L501.5200, L501.2300 ####[facility] [address] [place], [address] CO2 [Moles/Vol] 21.0 mmol/L Normal 21.0-32.0 [facility] Comment on above: Performed By: #### L 501.5294, L501.5200, L501.2300 ####[facility] [address] [place], [address] GAP 15 Normal 5-15 [facility] Comment on above: Performed By: #### L 501.5294, L501.5200, L501.2300 ####[facility] [address] [place], [address] Potassium [Moles/Vol] 3.2 mmol/L Low 3.3-5.1 [facility] Comment on above: Performed By: #### L 501.5294, L501.5200, L501.2300 ####[facility] [address] [place], [address] Sodium [Moles/Vol] 141 mmol/L Normal 133-145 [facility] Comment on above: Performed By: #### L 501.5294, L501.5200, L501.2300 ####[facility] [address] [place], [address] Chloride [Moles/Vol] 102 mmol/L Normal 98-108 [facility] Comment on above: Performed By: #### L 501.2300, L501.5294, L500.4100, L501.5200 ####[facility] [address] [place], [address] CO2 [Moles/Vol] 15.5 mmol/L Low 21.0-32.0 [facility] Comment on above: Performed By: #### L 501.2300, L501.5294, L500.4100, L501.5200 ####[facility] [address] [place], [address] GAP 22 High 5-15 [facility] Comment on above: Performed By: #### L 501.2300, L501.5294, L500.4100, L501.5200 ####[facility] [address] [place], [address] Potassium [Moles/Vol] 3.4 mmol/L Normal 3.3-5.1 [facility] Comment on above: Performed By: #### L 501.2300, L501.5294, L500.4100, L501.5200 ####[facility] [address] [place], [address] Sodium [Moles/Vol] 139 mmol/L Normal 133-145 [facility] Comment on above: Performed By: #### L 501.2300, L501.5294, L500.4100, L501.5200 ####[facility] [address] [place], [address] Chloride [Moles/Vol] 102 mmol/L Normal 98-108 [facility] Comment on above: Performed By: #### L 503.0106, L501.9520, L501.2300, L501.5294 ####[facility] [address] [place], [address] CO2 [Moles/Vol] 15.7 mmol/L Low 21.0-32.0 [facility] Comment on above: Performed By: #### L 503.0106, L501.9520, L501.2300, L501.5294 ####[facility] [address] [place], [address] GAP 21 High 5-15 [facility] Comment on above: Performed By: #### L 503.0106, L501.9520, L501.2300, L501.5294 ####[facility] [address] [place], [address] Potassium [Moles/Vol] 3.4 mmol/L Normal 3.3-5.1 [facility] Comment on above: Performed By: #### L 503.0106, L501.9520, L501.2300, L501.5294 ####[facility] [address] [place], [address] Sodium [Moles/Vol] 139 mmol/L Normal 133-145 [facility] Comment on above: Performed By: #### L 503.0106, L501.9520, L501.2300, L501.5294 ####[facility] [address] [place], [address] Emergency Department Summary on 11-08-2024 Emergency Department Summary Normal [facility] H AND P Exam - Hospitaliston 11-08-2024 H&P Exam - Hospitalist Normal [facility] LDL calc ser/plasOrdered By: Anuja Brown on 11-08-2024 Cholesterol in LDL [Mass/Vol] 77 mg/dL [facility] Lactic Acidon 11-08-2024 Lactate [Moles/Vol] 1.2 mmol/L Normal 0.0-2.0 [facility] Comment on above: Order Comment: RICO Herrera PREVIOUS SPECIMEN REJECTED DUE TOHEMOLYZED SPECIMEN. 11/07/24 2316Y Performed By: #### L 503.6005 ####[facility] [address] [place], [address] Lipid Profileon 11-08-2024 CHOL:HDL 2.50 Normal [facility] Comment on above: Performed By: #### L 501.2300, L501.5294, L500.4100, L501.5200 ####[facility] [address] [place], [address] Cholesterol [Mass/Vol] 157 mg/dL Normal <=200 [facility] Comment on above: Result Comment: Chol esterol level, Desirable <200 mg/dLBorderline high cholesterol 200-239 mg/dLHigh cholesterol >=240 mg/dLRecommendations of the NCEP Adult Treatment Panel for thefollowing risk-cutoff thresholds for the [place] Americanpulation. Performed By: #### L 501.2300, L501.5294, L500.4100, L501.5200 ####[facility] [address] [place], [address] Cholesterol in HDL [Mass/Vol] 63 mg/dL Normal [facility] Comment on above: Result Comment: Nicki onal Cholesterol Education Program (NCEP) guidelines:<40 mg/dL: Low HDL-cholesterol (major risk factor for CHD)>= 60 mg/dL: High HDL-cholesterol (negative risk factor forCHD)HDL-cholesterol is affected by a number of factors, e.g.smoking, exercise, hormones, sex and age. Performed By: #### L 501.2300, L501.5294, L500.4100, L501.5200 ####[facility] [address] [place], [address] Cholesterol in LDL [Mass/Vol] 77 mg/dL Normal [facility] Comment on above: Result Comment: Bord ikmith=861-604 mg/dL Higher Uflf=341 mg/dL or greaterFriedwald Equation for LDL-C Performed By: #### L 501.2300, L501.5294, L500.4100, L501.5200 ####[facility] [address] [place], [address] Cholesterol in VLDL [Mass/Vol] 17 mg/dL Normal 5-40 [facility] Comment on above: Performed By: #### L 501.2300, L501.5294, L500.4100, L501.5200 ####[facility] [address] [place], [address] Triglyceride [Mass/Vol] 86 mg/dL Normal [facility] Comment on above: Result Comment: The drugs N-Acetylcysteine and Metamizole may falselydepress this assay.Normal range: <150 mg/dLBorderline High: 150-199 mg/dLHigh: 200-499 mg/dLVery High: >500 mg/dL Performed By: #### L 501.2300, L501.5294, L500.4100, L501.5200 ####[facility] [address] [place], [address] Magnesiumon 11-08-2024 Magnesium [Mass/Vol] 2.1 mg/dL Normal 1.5-2.2 [facility] Comment on above: Performed By: #### L 501.5294, L501.5200, L501.2300 ####[facility] [address] [place], [address] Magnesium [Mass/Vol] 1.9 mg/dL Normal 1.5-2.2 [facility] Comment on above: Performed By: #### L 501.5200, L501.2300, L500.2500 ####[facility] [address] [place], [address] Magnesium [Mass/Vol] 1.8 mg/dL Normal 1.5-2.2 [facility] Comment on above: Performed By: #### L 501.2300, L501.5294, L500.4100, L501.5200 ####[facility] [address] [place], [address] Magnesium [Mass/Vol] 2.2 mg/dL Normal 1.5-2.2 [facility] Comment on above: Performed By: #### L 501.5200, L501.6901 ####[facility] [address] [place], [address] Magnesium measurement (mass/ volume)Ordered By: Corinne Villalobos on 11-08-2024 Magnesium (Unsp spec) [Mass/Vol] 2.1 mg/dL 1.5-2.2 [facility] Measurement, pHOrdered By: Marichuy Brown on 11-08-2024 pH (Unsp spec) 7.60 [pH] Critically high 7.35-7.45 [facility] No Panel InformationOrdered By: Anuja Brown on 11-08-2024 Negative < 200 ng/mL [facility] ART [facility] R Radial [facility] Not entered [facility] Room Air [facility] 02:17:22 [facility] de Kevin [facility] Yes [facility] Phosphoruson 11-08-2024 Phosphate [Mass/Vol] 4.0 mg/dL Normal 2.7-4.5 [facility] Comment on above: Performed By: #### L 501.5294, L501.5200, L501.2300 ####[facility] [address] [place], [address] Phosphate [Mass/Vol] 3.2 mg/dL Normal 2.7-4.5 [facility] Comment on above: Performed By: #### L 501.5200, L501.2300, L500.2500 ####[facility] [address] [place], [address] Phosphate [Mass/Vol] 2.7 mg/dL Normal 2.7-4.5 [facility] Comment on above: Performed By: #### L 501.2300, L501.5294, L500.4100, L501.5200 ####[facility] [address] [place], [address] Phosphate [Mass/Vol] 2.8 mg/dL Normal 2.7-4.5 [facility] Comment on above: Performed By: #### L 503.0106, L501.9520, L501.2300, L501.5294 ####[facility] [address] [place], [address] RESPIRATORY PANEL MOLECULARo n 11-08-2024 RP PANEL Normal [facility] Comment on above: Performed By: #### M 100.638 ####[facility] [address] [place], [place], [address] Respiratory pathogens detect ion panel by molecular detection methodOrdered By: Anuja Brown on 11-08-2024 Respiratory pathogens DNA and RNA panel MARILEE+probe (Resp) [facility] STROKE Brain/Head without Co nton 11-08-2024 STROKE Brain/Head without Cont Normal [facility] Screening urine fentanyl christine surementOrdered By: Anuja Brown on 11-08-2024 fentaNYL Screen Ql (U) Negative <5 ng/mL [facility] Serum or plasma cholesterol in HDL measurement (mass/volume)Ordered By: Anuja Brown on 11-08-2024 Cholesterol in HDL [Mass/Vol] 63 mg/dL >40 [facility] Serum or plasma cholesterol measurement (mass/volume)Ordered By: Anuja Brown on 11-08-2024 Cholesterol [Mass/Vol] 157 mg/dL <201 [facility] Serum or plasma ethanol timbo urement (mass/volume)Ordered By: Anuja Brown on 11-08-2024 Ethanol [Mass/Vol] mg/dL <10.1 [facility] Spine Cervical without Contr ason 11-08-2024 Spine Cervical without Contras Normal [facility] TSH DL <= 0.005 mIU/L QnOrde red By: Anuja Brown on 11-08-2024 TSH Qn 3.250 uIU/mL 0.300-4.200 [facility] Thyroid Stim Hormone (TSH)on 11-08-2024 TSH 3.250 uIU/mL Normal 0.300-4.200 [facility] Comment on above: Performed By: #### L 503.0106, L501.9520, L501.5510, L501.8394 ####[facility] [address] [place], [place], [id number] Total carbon dioxide measure mentOrdered By: Anuja Brown on 11-08-2024 CO2 [Moles/Vol] 17 mmol/L [facility] Troponin T HS 2 HRon 025 Trop T High Sen 14 ng/L Normal <=14 [facility] Comment on above: Performed By: #### L 499.0042 ####[facility] [address] [place], [place], [id number] Troponin T HS 4 HRon 025 Trop T High Sen 17 ng/L High <=14 [facility] Comment on above: Performed By: #### L 499.0043 ####[facility] [address] [place], [place], [address] Troponin T.cardiac [Mass/vol ume] in Serum or Plasma by High sensitivity methodOrdered By: Corinne Villalobos on 11-08-2024 Troponin T.cardiac High sensitivity method [Mass/Vol] 17 ng/L High <14 [facility] Troponin T.cardiac High sensitivity method [Mass/Vol] 14 ng/L <14 [facility] Urine Drug Screen (VISTA)on 11-08-2024 AMPHETAMINES Negative Normal <1000 ng/mL [facility] Comment on above: Performed By: #### L 505.5000, L501.9100 ####[facility] [address] [place], [place], [address] BARBITIURATES Negative Normal < 200 ng/mL [facility] Comment on above: Performed By: #### L 505.5000, L501.9100 ####[facility] [address] [place], [address] BENZODIAZIPINE Negative Normal < 200 ng/mL [facility] Comment on above: Performed By: #### L 505.5000, L500 ####[facility] [address] [facility] [address] BUP Ur Drug Scr Negative Normal < 200 ng/mL [facility] Comment on above: Performed By: #### L 505.5000, L500 ####[facility] [address] [facility] [address] COCAINE Negative Normal < 300 ng/mL [facility] Comment on above: Performed By: #### L 505.5000, L500 ####[facility] [address] [place] [address] Fentanyl Negative Normal <5 ng/mL [facility] Comment on above: Result Comment: CONF IRMATORY TESTING FOR ALL POSITIVE URINE DRUG SCREENRESULTS WILL ONLY BE SENT OUT UPON PHYSICIAN ORDER.Quynh Pro Urine Drug Screen methods provide only preliminaryanalytical test results. A more specific alternate chemicalmethod must be used in order to obtain a confirmedanalytical result. Gas chromatography/mass spectrometery(GC/MS) is the preferred confirmatory method. Clinicalconsideration and professional judgement should be appliedto any drug of abuse test result, particularly whenpreliminary positive results are used.Urine TCA testing must be ordered separately. Use testmnemonic: [facility] Performed By: #### L 505.4999, L500 ####[facility] [address] [place] [id number] METHADONE Negative Normal < 300 ng/mL [facility] Comment on above: Performed By: #### L 505.4999, L500 ####[facility] [address] [place] [phone] OPIATES Negative Normal < 300 ng/mL [facility] Comment on above: Performed By: #### L 505.5000, L500 ####[facility] [address] [place] [id number] OXYCODONE Negative Normal < 100 ng/mL [facility] Comment on above: Performed By: #### L 505.5000, L501.9100 ####[facility] [address] [place], [address] PCP Negative Normal < 25 ng/mL [facility] Comment on above: Performed By: #### L 505.5000, L501.9100 ####[facility] [address] [place], [address] THC Positive Normal < 50 ng/mL [facility] Comment on above: Result Comment: If c onfirmation testing is needed, a separate order will berequired to send out testing to the reference laboratory. Performed By: #### L 505.5000, L501.9100 ####[facility] [address] [place], [address] Urine phencyclidine (PCP) de tectionOrdered By: Anuja Brown on 11-08-2024 Phencyclidine Ql (U) Negative < 25 ng/mL [facility] Venous Blood Gason Blood Gas Type RADHA Normal [facility] Comment on above: Performed By: #### L 9000.0810 ####[facility] [address] [place], [address] CO2 [Moles/Vol] 16 mmol/L Low 23-33 [facility] Comment on above: Performed By: #### L 9000.0810 ####[facility] [address] [place], [address] HCO3 (Bld) [Moles/Vol] 16 mmol/L Low 22-26 [facility] Comment on above: Performed By: #### L 9000.0810 ####[facility] [address] [place], [address] O2 Delivery Dev Room Air Normal [facility] Comment on above: Performed By: #### L 9000.0810 ####[facility] [address] [place], [address] Read Back By Yes Normal [facility] Comment on above: Performed By: #### L 9000.0810 ####[facility] [address] [place], [address] Results To Ilsa Normal [facility] Comment on above: Performed By: #### L 9000.0810 ####[facility] [address] [place], [address] SITE Not entered [facility] Comment on above: Performed By: #### L 9000.0810 ####[facility] [address] [place], [address] Time Given 01:34:49 Normal [facility] Comment on above: Performed By: #### L 9000.0810 ####[facility] [address] [place], [address] VBG BE -5 mmol/L Low -1.0-3.5 [facility] Comment on above: Performed By: #### L 9000.0810 ####[facility] [address] [place], [address] VBG pCO2 14.6 mmHg Invalid Interpretation Code 41-51 [facility] Comment on above: Performed By: #### L 9000.0810 ####[facility] [address] [place], [address] VBG pH 7.65 Invalid Interpretation Code 7.32-7.42 [facility] Comment on above: Performed By: #### L 9000.0810 ####[facility] [address] [place], [address] VBG PO2 61 mmHg High 25-40 [facility] Comment on above: Performed By: #### L 9000.0810 ####[facility] [address] [place], [address] VBG SO2 96 High 50-70 [facility] Comment on above: Performed By: #### L 9000.0810 ####[facility] [address] [place], [address] Venous blood base excess christine surementOrdered By: Corinne Villalobos on 11-08-2024 Base excess Calc (BldV) [Moles/Vol] -5 mmol/L Low -1.0-3.5 [facility] Venous blood bicarbonate christine surementOrdered By: Corinne Villalobos on 11-08-2024 HCO3 (Bld) [Moles/Vol] 16 mmol/L Low 22-26 [facility] Venous blood pH measurementO rdered By: Corinne Villalobos on 11-08-2024 pH (BldV) 7.65 [pH] Critically high 7.32-7.42 [facility] Venous blood partial pressur e of carbon dioxide measurementOrdered By: Corinne Villalobos on 11-08-2024 CO2 (BldV) [Partial pressure] 14.6 mm[Hg] Critically low 41-51 [facility] Venous blood partial pressur e of oxygen measurementOrdered By: Corinne Villalobos on 11-08-2024 Oxygen (BldV) [Partial pressure] 61 mm[Hg] High 25-40 [facility] Vitamin B12on 11-08-2024 Cobalamin (Vitamin B12) [Mass/Vol] 1127 pg/mL High 180-914 [facility] Comment on above: Performed By: #### L 503.0106, L501.9520, L501.2300, L501.5294 ####[facility] [address] [place], [address] Vitamin B12 ser/plasOrdered By: Anuja Brown on 11-08-2024 Cobalamin (Vitamin B12) [Mass/Vol] 1127 pg/mL High 180-914 [facility] 12 Lead EKGon 11-07-2024 12 Lead EKG Normal [facility] Ammoniaon 11-07-2024 Ammonia (P) [Moles/Vol] 20.7 umol/L Normal 11-51 [facility] Comment on above: Performed By: #### L 503.5510 ####[facility] [address] [place], [address] Bilirubin, totalOrdered By: Corinne Villalobos on 11-07-2024 Bilirubin [Mass/Vol] 1.20 mg/dL 0.00-1.30 [facility] CBC W/Diff, Automatedon 10-14 Absolute Lymph 0.78 X10 3/uL Low 0.83-4.51 [facility] Comment on above: Performed By: #### L 501.4021, L500.4050, L501.2450, L100.0100 ####[facility] [address] [place], [address] Absolute Neut 9.6 X10 3/uL High 2.0-7.7 [facility] Comment on above: Performed By: #### L 501.4021, L500.4050, L501.2450, L100.0100 ####[facility] [address] [place], [address] Basophils/100 WBC (Bld) 0.2 % Normal 0-1 [facility] Comment on above: Performed By: #### L 501.4021, L500.4050, L501.2450, L100.0100 ####[facility] [address] [place], [address] Eosinophils/100 WBC (Bld) 0.1 % Normal 0-5 [facility] Comment on above: Performed By: #### L 501.4021, L500.4050, L501.2450, L100.0100 ####[facility] [address] [place], [address] Erythrocyte distribution width (RBC) [Ratio] 13.2 % Normal 11.6-14.6 [facility] Comment on above: Performed By: #### L 501.4021, L500.4050, L501.2450, L100.0100 ####[facility] [address] [place], [address] Hematocrit (Bld) [Volume fraction] 50.4 % High 37-47 [facility] Comment on above: Performed By: #### L 501.4021, L500.4050, L501.2450, L100.0100 ####[facility] [address] [place], [address] Hemoglobin (Bld) [Mass/Vol] 16.5 g/dL High 12.0-15.0 [facility] Comment on above: Performed By: #### L 501.4021, L500.4050, L501.2450, L100.0100 ####[facility] [address] [place], [address] IG% 0.400 Normal 0.0-0.9 [facility] Comment on above: Result Comment: IG% - Immature Granulocytes (promyelocytes, myelocytes andmetamyelocytes) > 1% indicates that a LEFT SHIFT is Present. Performed By: #### L 501.4021, L500.4050, L501.2450, L100.0100 ####[facility] [address] [place], [address] Lymphocytes/100 WBC (Bld) 7.3 % Low 19-41 [facility] Comment on above: Performed By: #### L 501.4021, L500.4050, L501.2450, L100.0100 ####[facility] [address] [place], [address] MCH (RBC) [Entitic mass] 28.4 pg Normal 27.0-32.0 [facility] Comment on above: Performed By: #### L 501.4021, L500.4050, L501.2450, L100.0100 ####[facility] [address] [place], [address] MCHC (RBC) [Mass/Vol] 32.7 g/dL Normal 32-36 [facility] Comment on above: Performed By: #### L 501.4021, L500.4050, L501.2450, L100.0100 ####[facility] [address] [place], [address] MCV (RBC) [Entitic vol] 86.7 fL Normal 81-99 [facility] Comment on above: Performed By: #### L 501.4021, L500.4050, L501.2450, L100.0100 ####[facility] [address] [place], [address] Monocytes/100 WBC (Bld) 1.9 % Normal 0-10 [facility] Comment on above: Performed By: #### L 501.4021, L500.4050, L501.2450, L100.0100 ####[facility] [address] [place], [address] Neutrophils/100 WBC (Bld) 90.1 % High 47-70 [facility] Comment on above: Performed By: #### L 501.4021, L500.4050, L501.2450, L100.0100 ####[facility] [address] [place], [address] Nucleated RBC (Bld) [#/Vol] 0 10*3/uL Normal 0-5 [facility] Comment on above: Performed By: #### L 501.4021, L500.4050, L501.2450, L100.0100 ####[facility] [address] [place], [address] Platelet mean volume (Bld) [Entitic vol] 9.7 fL Normal 6.2-12.0 [facility] Comment on above: Performed By: #### L 501.4021, L500.4050, L501.2450, L100.0100 ####[facility] [address] [place], [address] Platelets (Bld) [#/Vol] 400 10*3/uL Normal 150-450 [facility] Comment on above: Performed By: #### L 501.4021, L500.4050, L501.2450, L100.0100 ####[facility] [address] [place], [address] RBC (Bld) [#/Vol] 5.81 10*6/uL High 4.2-5.4 [facility] Comment on above: Performed By: #### L 501.4021, L500.4050, L501.2450, L100.0100 ####[facility] [address] [place], [address] RDW SD 42.1 fl Normal 35.1-43.9 [facility] Comment on above: Performed By: #### L 501.4021, L500.4050, L501.2450, L100.0100 ####[facility] [address] [place], [address] WBC (Bld) [#/Vol] 10.7 10*3/uL Normal 4.4-11.0 [facility] Comment on above: Performed By: #### L 501.4021, L500.4050, L501.2450, L100.0100 ####[facility] [address] [place], [address] Chest PA and Lateralon 11-07 Chest PA and Lateral Normal [facility] Comprehensive Metabolic Prof ilon 11-07-2024 Albumin [Mass/Vol] 4.8 g/dL Normal 3.4-4.8 [facility] Comment on above: Performed By: #### L 501.4021, L500.4050, L501.2450, L100.0100 ####[facility] [address] [place], [address] Albumin/Globulin [Mass ratio] 1.5 {ratio} Normal 0.9-2.4 [facility] Comment on above: Performed By: #### L 501.4021, L500.4050, L501.2450, L100.0100 ####[facility] [address] [place], [address] ALK PHOS 126 U/L High 35-104 [facility] Comment on above: Performed By: #### L 501.4021, L500.4050, L501.2450, L100.0100 ####[facility] [address] [place], [address] ALT [Catalytic activity/Vol] 14 U/L Normal <=34 [facility] Comment on above: Performed By: #### L 501.4021, L500.4050, L501.2450, L100.0100 ####[facility] [address] [place], [address] AST [Catalytic activity/Vol] 34 U/L High <=31 [facility] Comment on above: Result Comment: Hemo lysis present, Results??could be affected.?? Performed By: #### L 501.4021, L500.4050, L501.2450, L100.0100 ####[facility] [address] [place], [address] Bilirubin [Mass/Vol] 1.20 mg/dL Normal 0.00-1.30 [facility] Comment on above: Performed By: #### L 501.4021, L500.4050, L501.2450, L100.0100 ####[facility] [address] [place], [address] BUN/CRE 15.4 RATIO Normal 10-20 [facility] Comment on above: Performed By: #### L 501.4021, L500.4050, L501.2450, L100.0100 ####[facility] [address] [place], [address] Calcium [Mass/Vol] 10.0 mg/dL Normal 7.6-11.0 [facility] Comment on above: Performed By: #### L 501.4021, L500.4050, L501.2450, L100.0100 ####[facility] [address] [place], [address] Chloride [Moles/Vol] 98 mmol/L Normal 98-108 [facility] Comment on above: Performed By: #### L 501.4021, L500.4050, L501.2450, L100.0100 ####[facility] [address] [place], [address] CO2 [Moles/Vol] 14.7 mmol/L Low 21.0-32.0 [facility] Comment on above: Performed By: #### L 501.4021, L500.4050, L501.2450, L100.0100 ####[facility] [address] [place], [address] Creatinine [Mass/Vol] 0.87 mg/dL Normal 0.70-1.20 [facility] Comment on above: Performed By: #### L 501.4021, L500.4050, L501.2450, L100.0100 ####[facility] [address] [place], [address] GAP 26 High 5-15 [facility] Comment on above: Performed By: #### L 501.4021, L500.4050, L501.2450, L100.0100 ####[facility] [address] [place], [address] GFR/1.73 sq M.predicted among non-blacks MDRD (S/P/Bld) [Vol rate/Area] 71 mL/min/{1.73_m2} Normal >60 [facility] Comment on above: Result Comment: mL/m in/1.73m2 CKD-EPI Creatinine Equation (2020) Performed By: #### L 501.4021, L500.4050, L501.2450, L100.0100 ####[facility] [address] [place], [address] Globulin (S) [Mass/Vol] 3.2 g/dL Normal 2.2-4.2 [facility] Comment on above: Performed By: #### L 501.4021, L500.4050, L501.2450, L100.0100 ####[facility] [address] [place], [address] Glucose [Mass/Vol] 283 mg/dL High 70-99 [facility] Comment on above: Performed By: #### L 501.4021, L500.4050, L501.2450, L100.0100 ####[facility] [address] [place], [address] Potassium [Moles/Vol] 4.3 mmol/L Normal 3.3-5.1 [facility] Comment on above: Result Comment: Hemo lysis present, Results??could be affected.?? Performed By: #### L 501.4021, L500.4050, L501.2450, L100.0100 ####[facility] [address] [place], [address] Sodium [Moles/Vol] 139 mmol/L Normal 133-145 [facility] Comment on above: Performed By: #### L 501.4021, L500.4050, L501.2450, L100.0100 ####[facility] [address] [place], [address] T PROT 8.0 g/dL Normal 5.9-8.4 [facility] Comment on above: Performed By: #### L 501.4021, L500.4050, L501.2450, L100.0100 ####[facility] [address] [place], [address] Urea nitrogen [Mass/Vol] 13 mg/dL Normal 4-19 [facility] Comment on above: Performed By: #### L 501.4021, L500.4050, L501.2450, L100.0100 ####[facility] [address] [place], [address] L501.4021on 11-07-2024 Trop T High Sen 13 ng/L Normal <=14 [facility] Comment on above: Performed By: #### L 501.4021, L500.4050, L501.2450, L100.0100 ####[facility] [address] [place], [address] Lipaseon 11-07-2024 Lipase [Catalytic activity/Vol] 14 U/L Normal 13-75 [facility] Comment on above: Result Comment: La se note:LIPASE revised reference range effective 22.New Lipase methodology. Expected to produce lower valuesthan the previous assay method.NEW Reference Range: 13 - 75 U/L Performed By: #### L 501.4021, L500.4050, L501.2450, L100.0100 ####[facility] [address] [place], [address] No Panel InformationOrdered By: Corinne Villalobos on 11-07-2024 34 U/L High <32 [facility] Serum globulin measurementOr dered By: Corinne Villalobos on 11-07-2024 Globulin (S) [Mass/Vol] 3.2 g/dL 2.2-4.2 [facility] Serum or plasma alanine jo otransferase (ALT) measurementOrdered By: Corinne Villalobos on 11-07-2024 ALT [Catalytic activity/Vol] 14 U/L <35 [facility] Serum or plasma albumin timbo urement (mass/volume)Ordered By: Corinne Villalobos on 11-07-2024 Albumin [Mass/Vol] 4.8 g/dL 3.4-4.8 [facility] Serum or plasma albumin/glob ulin mass ratioOrdered By: Corinne Villalobos on 11-07-2024 Albumin/Globulin [Mass ratio] 1.5 {ratio} 0.9-2.4 [facility] Serum or plasma alkaline tc sphatase measurementOrdered By: Corinne Villalobos on 11-07-2024 ALP [Catalytic activity/Vol] 126 U/L High 35-104 [facility] Total proteinOrdered By: Lori Villalobos on 11-07-2024 Protein [Mass/Vol] 8.0 g/dL 5.9-8.4 [facility] Troponin T.cardiac [Mass/vol ume] in Serum or Plasma by High sensitivity methodOrdered By: Corinne Villalobos on 11-07-2024 Troponin T.cardiac High sensitivity method [Mass/Vol] 13 ng/L Invalid Interpretation Code <14 [facility] Urinalysis, Completeon 11-07 EPI,SQUAMOUS 0-5 SEEN Normal 5-10 [facility] Comment on above: Order Comment: DAYAN BASURTOOR TO SPECIFY Performed By: #### L 400.0001 ####[facility] [address] [place], [place], [address] RBC 0-5 SEEN Normal 0-5 [facility] Comment on above: Order Comment: DAYAN CTOR TO SPECIFY Performed By: #### L 400.0001 ####[facility] [address] [place], [place], [address] WBC 0-5 SEEN Normal 0-5 [facility] Comment on above: Order Comment: DAYAN CTOR TO SPECIFY Performed By: #### L 400.0001 ####[facility] [address] [place], [place], [address] BACTERIA 0 SEEN Normal None Seen [facility] Comment on above: Order Comment: DAYAN CTOR TO SPECIFY Performed By: #### L 400.0001 ####[facility] [address] [place], [address] Mucus Ql (Urine sed) 0 SEEN Normal [facility] Comment on above: Order Comment: DAYAN CTOR TO SPECIFY Performed By: #### L 400.0001 ####[facility] [address] [place], [address] Venous blood ammonia measure mentOrdered By: Corinne Villalobos on 11-07-2024 Ammonia (P) [Moles/Vol] 20.7 umol/L 1151 [facility] Gastroenterology Visit Repor ton 10-01-2024 Gastroenterology Visit Report Normal [facility] Basic Metabolic Profile (BMP )on 09-09-2024 BUN Normal 4-19 [facility] Comment on above: Result Comment: Canc elled via OM: Order cancelled - Patient discharged Performed By: #### L 500.2500, L100.0100 ####[facility] [address] [place], [address] BUN/CRE Normal 10-20 [facility] Comment on above: Result Comment: Canc elled via OM: Order cancelled - Patient discharged Performed By: #### L 500.2500, L100.0100 ####[facility] [address] [place], [address] Calcium Normal 7.6-11.0 [facility] Comment on above: Result Comment: Canc elled via OM: Order cancelled - Patient discharged Performed By: #### L 500.2500, L100.0100 ####[facility] [address] [place], [address] CL Normal 98-108 [facility] Comment on above: Result Comment: Canc elled via OM: Order cancelled - Patient discharged Performed By: #### L 500.2500, L100.0100 ####[facility] [address] [place], [address] CO2 Normal 21.0-32.0 [facility] Comment on above: Result Comment: Canc elled via OM: Order cancelled - Patient discharged Performed By: #### L 500.2500, L100.0100 ####[facility] [address] [place], [address] CREAT,SERUM Normal 0.70-1.20 [facility] Comment on above: Result Comment: Canc elled via OM: Order cancelled - Patient discharged Performed By: #### L 500.2500, L100.0100 ####[facility] [address] [place], [address] eGFR Normal >60 [facility] Comment on above: Result Comment: Canc elled via OM: Order cancelled - Patient discharged Performed By: #### L 500.2500, L100.0100 ####[facility] [address] [place], [address] GAP Normal 5-15 [facility] Comment on above: Result Comment: Canc elled via OM: Order cancelled - Patient discharged Performed By: #### L 500.2500, L100.0100 ####[facility] [address] [place], [address] GLU Normal 70-99 [facility] Comment on above: Result Comment: Canc elled via OM: Order cancelled - Patient discharged Performed By: #### L 500.2500, L100.0100 ####[facility] [address] [place], [address] Potassium Normal 3.3-5.1 [facility] Comment on above: Result Comment: Canc elled via OM: Order cancelled - Patient discharged Performed By: #### L 500.2500, L100.0100 ####[facility] [address] [place], [address] Basic Metabolic Profile (BMP) Normal 133-145 [facility] Comment on above: Result Comment: Canc elled via OM: Order cancelled - Patient discharged Performed By: #### L 500.2500, L100.0100 ####[facility] [address] [place], [address] CBC W/Diff, Automatedon 07-2 Absolute Neut Normal 2.0-7.7 [facility] Comment on above: Result Comment: Canc elled via OM: Order cancelled - Patient discharged Performed By: #### L 500.2500, L100.0100 ####[facility] [address] [place], [address] HCT Normal 37-47 [facility] Comment on above: Result Comment: Canc elled via OM: Order cancelled - Patient discharged Performed By: #### L 500.2500, L100.0100 ####[facility] [address] [place], [address] HGB Normal 12.0-15.0 [facility] Comment on above: Result Comment: Canc elled via OM: Order cancelled - Patient discharged Performed By: #### L 500.2500, L100.0100 ####[facility] [address] [place], [address] MCH Normal 27.0-32.0 [facility] Comment on above: Result Comment: Canc elled via OM: Order cancelled - Patient discharged Performed By: #### L 500.2500, L100.0100 ####[facility] [address] [place], [address] MCHC Normal 32-36 [facility] Comment on above: Result Comment: Canc elled via OM: Order cancelled - Patient discharged Performed By: #### L 500.2500, L100.0100 ####[facility] [address] [place], [address] MCV Normal 81-99 [facility] Comment on above: Result Comment: Canc elled via OM: Order cancelled - Patient discharged Performed By: #### L 500.2500, L100.0100 ####[facility] [address] [place], [address] NEUT% Normal 47-70 [facility] Comment on above: Result Comment: Canc elled via OM: Order cancelled - Patient discharged Performed By: #### L 500.2500, L100.0100 ####[facility] [address] [place], [address] PLT Normal 150-450 [facility] Comment on above: Result Comment: Canc elled via OM: Order cancelled - Patient discharged Performed By: #### L 500.2500, L100.0100 ####[facility] [address] [place], [address] RBC Normal 4.2-5.4 [facility] Comment on above: Result Comment: Canc elled via OM: Order cancelled - Patient discharged Performed By: #### L 500.2500, L100.0100 ####[facility] [address] [place], [address] RDW CV Normal 11.6-14.6 [facility] Comment on above: Result Comment: Canc elled via OM: Order cancelled - Patient discharged Performed By: #### L 500.2500, L100.0100 ####[facility] [address] [place], [address] RDW SD Normal 35.1-43.9 [facility] Comment on above: Result Comment: Canc elled via OM: Order cancelled - Patient discharged Performed By: #### L 500.2500, L100.0100 ####[facility] [address] [place], [address] WBC Normal 4.4-11.0 [facility] Comment on above: Result Comment: Canc elled via OM: Order cancelled - Patient discharged Performed By: #### L 500.2500, L100.0100 ####[facility] [address] [place], [address] Basic Metabolic Profile (BMP )on 09-08-2024 BUN Normal 4-19 [facility] Comment on above: Result Comment: Canc elled via OM: Order cancelled - Patient discharged Performed By: #### L 500.2500, L100.0100 ####[facility] [address] [place], [address] BUN/CRE Normal 10-20 [facility] Comment on above: Result Comment: Canc elled via OM: Order cancelled - Patient discharged Performed By: #### L 500.2500, L100.0100 ####[facility] [address] [place], [address] Calcium Normal 7.6-11.0 [facility] Comment on above: Result Comment: Canc elled via OM: Order cancelled - Patient discharged Performed By: #### L 500.2500, L100.0100 ####[facility] [address] [place], [address] CL Normal 98-108 [facility] Comment on above: Result Comment: Canc elled via OM: Order cancelled - Patient discharged Performed By: #### L 500.2500, L100.0100 ####[facility] [address] [place], [address] CO2 Normal 21.0-32.0 [facility] Comment on above: Result Comment: Canc elled via OM: Order cancelled - Patient discharged Performed By: #### L 500.2500, L100.0100 ####[facility] [address] [place], [address] CREAT,SERUM Normal 0.70-1.20 [facility] Comment on above: Result Comment: Canc elled via OM: Order cancelled - Patient discharged Performed By: #### L 500.2500, L100.0100 ####[facility] [address] [place], [address] eGFR Normal >60 [facility] Comment on above: Result Comment: Canc elled via OM: Order cancelled - Patient discharged Performed By: #### L 500.2500, L100.0100 ####[facility] [address] [place], [address] GAP Normal 5-15 [facility] Comment on above: Result Comment: Canc elled via OM: Order cancelled - Patient discharged Performed By: #### L 500.2500, L100.0100 ####[facility] [address] [place], [address] GLU Normal 70-99 [facility] Comment on above: Result Comment: Canc elled via OM: Order cancelled - Patient discharged Performed By: #### L 500.2500, L100.0100 ####[facility] [address] [place], [address] Potassium Normal 3.3-5.1 [facility] Comment on above: Result Comment: Canc elled via OM: Order cancelled - Patient discharged Performed By: #### L 500.2500, L100.0100 ####[facility] [address] [place], [address] Basic Metabolic Profile (BMP) Normal 133-145 [facility] Comment on above: Result Comment: Canc elled via OM: Order cancelled - Patient discharged Performed By: #### L 500.2500, L100.0100 ####[facility] [address] [place], [address] CBC W/Diff, Automatedon 07-2 Absolute Neut Normal 2.0-7.7 [facility] Comment on above: Result Comment: Canc elled via OM: Order cancelled - Patient discharged Performed By: #### L 500.2500, L100.0100 ####[facility] [address] [place], [address] HCT Normal 37-47 [facility] Comment on above: Result Comment: Canc elled via OM: Order cancelled - Patient discharged Performed By: #### L 500.2500, L100.0100 ####[facility] [address] [place], [address] HGB Normal 12.0-15.0 [facility] Comment on above: Result Comment: Canc elled via OM: Order cancelled - Patient discharged Performed By: #### L 500.2500, L100.0100 ####[facility] [address] [place], [address] MCH Normal 27.0-32.0 [facility] Comment on above: Result Comment: Canc elled via OM: Order cancelled - Patient discharged Performed By: #### L 500.2500, L100.0100 ####[facility] [address] [place], [address] MCHC Normal 32-36 [facility] Comment on above: Result Comment: Canc elled via OM: Order cancelled - Patient discharged Performed By: #### L 500.2500, L100.0100 ####[facility] [address] [place], [address] MCV Normal 81-99 [facility] Comment on above: Result Comment: Canc elled via OM: Order cancelled - Patient discharged Performed By: #### L 500.2500, L100.0100 ####[facility] [address] [place], [address] NEUT% Normal 47-70 [facility] Comment on above: Result Comment: Canc elled via OM: Order cancelled - Patient discharged Performed By: #### L 500.2500, L100.0100 ####[facility] [address] [place], [address] PLT Normal 150-450 [facility] Comment on above: Result Comment: Canc elled via OM: Order cancelled - Patient discharged Performed By: #### L 500.2500, L100.0100 ####[facility] [address] [place], [address] RBC Normal 4.2-5.4 [facility] Comment on above: Result Comment: Canc elled via OM: Order cancelled - Patient discharged Performed By: #### L 500.2500, L100.0100 ####[facility] [address] [place], [address] RDW CV Normal 11.6-14.6 [facility] Comment on above: Result Comment: Canc elled via OM: Order cancelled - Patient discharged Performed By: #### L 500.2500, L100.0100 ####[facility] [address] [place], [address] RDW SD Normal 35.1-43.9 [facility] Comment on above: Result Comment: Canc elled via OM: Order cancelled - Patient discharged Performed By: #### L 500.2500, L100.0100 ####[facility] [address] [place], [address] WBC Normal 4.4-11.0 [facility] Comment on above: Result Comment: Canc elled via OM: Order cancelled - Patient discharged Performed By: #### L 500.2500, L100.0100 ####[facility] [address] [place], [address] CNCOon 09-08-2024 CNCO Letter Text Normal [facility] Basic Metabolic Profile (BMP )on 09-07-2024 BUN Normal 4-19 [facility] Comment on above: Result Comment: Canc elled via OM: Order cancelled - Patient discharged Performed By: #### L 500.2500, L100.0100 ####[facility] [address] [place], [address] BUN/CRE Normal 10-20 [facility] Comment on above: Result Comment: Canc elled via OM: Order cancelled - Patient discharged Performed By: #### L 500.2500, L100.0100 ####[facility] [address] [place], [address] Calcium Normal 7.6-11.0 [facility] Comment on above: Result Comment: Canc elled via OM: Order cancelled - Patient discharged Performed By: #### L 500.2500, L100.0100 ####[facility] [address] [place], [address] CL Normal 98-108 [facility] Comment on above: Result Comment: Canc elled via OM: Order cancelled - Patient discharged Performed By: #### L 500.2500, L100.0100 ####[facility] [address] [place], [address] CO2 Normal 21.0-32.0 [facility] Comment on above: Result Comment: Canc elled via OM: Order cancelled - Patient discharged Performed By: #### L 500.2500, L100.0100 ####[facility] [address] [place], [address] CREAT,SERUM Normal 0.70-1.20 [facility] Comment on above: Result Comment: Canc elled via OM: Order cancelled - Patient discharged Performed By: #### L 500.2500, L100.0100 ####[facility] [address] [place], [address] eGFR Normal >60 [facility] Comment on above: Result Comment: Canc elled via OM: Order cancelled - Patient discharged Performed By: #### L 500.2500, L100.0100 ####[facility] [address] [place], [address] GAP Normal 5-15 [facility] Comment on above: Result Comment: Canc elled via OM: Order cancelled - Patient discharged Performed By: #### L 500.2500, L100.0100 ####[facility] [address] [place], [address] GLU Normal 70-99 [facility] Comment on above: Result Comment: Canc elled via OM: Order cancelled - Patient discharged Performed By: #### L 500.2500, L100.0100 ####[facility] [address] [place], [address] Potassium Normal 3.3-5.1 [facility] Comment on above: Result Comment: Canc elled via OM: Order cancelled - Patient discharged Performed By: #### L 500.2500, L100.0100 ####[facility] [address] [place], [address] Basic Metabolic Profile (BMP) Normal 133-145 [facility] Comment on above: Result Comment: Canc elled via OM: Order cancelled - Patient discharged Performed By: #### L 500.2500, L100.0100 ####[facility] [address] [place], [address] CBC W/Diff, Automatedon 07-2 Absolute Neut Normal 2.0-7.7 [facility] Comment on above: Result Comment: Canc elled via OM: Order cancelled - Patient discharged Performed By: #### L 500.2500, L100.0100 ####[facility] [address] [place], [address] HCT Normal 37-47 [facility] Comment on above: Result Comment: Canc elled via OM: Order cancelled - Patient discharged Performed By: #### L 500.2500, L100.0100 ####[facility] [address] [place], [address] HGB Normal 12.0-15.0 [facility] Comment on above: Result Comment: Canc elled via OM: Order cancelled - Patient discharged Performed By: #### L 500.2500, L100.0100 ####[facility] [address] [place], [address] MCH Normal 27.0-32.0 [facility] Comment on above: Result Comment: Canc elled via OM: Order cancelled - Patient discharged Performed By: #### L 500.2500, L100.0100 ####[facility] [address] [place], [address] MCHC Normal 32-36 [facility] Comment on above: Result Comment: Canc elled via OM: Order cancelled - Patient discharged Performed By: #### L 500.2500, L100.0100 ####[facility] [address] [place], [address] MCV Normal 81-99 [facility] Comment on above: Result Comment: Canc elled via OM: Order cancelled - Patient discharged Performed By: #### L 500.2500, L100.0100 ####[facility] [address] [place], [address] NEUT% Normal 47-70 [facility] Comment on above: Result Comment: Canc elled via OM: Order cancelled - Patient discharged Performed By: #### L 500.2500, L100.0100 ####[facility] [address] [place], [address] PLT Normal 150-450 [facility] Comment on above: Result Comment: Canc elled via OM: Order cancelled - Patient discharged Performed By: #### L 500.2500, L100.0100 ####[facility] [address] [place], [address] RBC Normal 4.2-5.4 [facility] Comment on above: Result Comment: Canc elled via OM: Order cancelled - Patient discharged Performed By: #### L 500.2500, L100.0100 ####[facility] [address] [place], [address] RDW CV Normal 11.6-14.6 [facility] Comment on above: Result Comment: Canc elled via OM: Order cancelled - Patient discharged Performed By: #### L 500.2500, L100.0100 ####[facility] [address] [place], [address] RDW SD Normal 35.1-43.9 [facility] Comment on above: Result Comment: Canc elled via OM: Order cancelled - Patient discharged Performed By: #### L 500.2500, L100.0100 ####[facility] [address] [place], [address] WBC Normal 4.4-11.0 [facility] Comment on above: Result Comment: Canc elled via OM: Order cancelled - Patient discharged Performed By: #### L 500.2500, L100.0100 ####[facility] [address] [place], [address] Basic Metabolic Profile (BMP )on 09-06-2024 BUN Normal 4-19 [facility] Comment on above: Result Comment: Canc elled via OM: Order cancelled - Patient discharged Performed By: #### L 100.0100, L500.2500 ####[facility] [address] [place], [address] BUN/CRE Normal 10-20 [facility] Comment on above: Result Comment: Canc elled via OM: Order cancelled - Patient discharged Performed By: #### L 100.0100, L500.2500 ####[facility] [address] [place], [address] Calcium Normal 7.6-11.0 [facility] Comment on above: Result Comment: Canc elled via OM: Order cancelled - Patient discharged Performed By: #### L 100.0100, L500.2500 ####[facility] [address] [place], [address] CL Normal 98-108 [facility] Comment on above: Result Comment: Canc elled via OM: Order cancelled - Patient discharged Performed By: #### L 100.0100, L500.2500 ####[facility] [address] [place], [address] CO2 Normal 21.0-32.0 [facility] Comment on above: Result Comment: Canc elled via OM: Order cancelled - Patient discharged Performed By: #### L 100.0100, L500.2500 ####[facility] [address] [place], [address] CREAT,SERUM Normal 0.70-1.20 [facility] Comment on above: Result Comment: Canc elled via OM: Order cancelled - Patient discharged Performed By: #### L 100.0100, L500.2500 ####[facility] [address] [place], [address] eGFR Normal >60 [facility] Comment on above: Result Comment: Canc elled via OM: Order cancelled - Patient discharged Performed By: #### L 100.0100, L500.2500 ####[facility] [address] [place], [address] GAP Normal 5-15 [facility] Comment on above: Result Comment: Canc elled via OM: Order cancelled - Patient discharged Performed By: #### L 100.0100, L500.2500 ####[facility] [address] [place], [address] GLU Normal 70-99 [facility] Comment on above: Result Comment: Canc elled via OM: Order cancelled - Patient discharged Performed By: #### L 100.0100, L500.2500 ####[facility] [address] [place], [address] Potassium Normal 3.3-5.1 [facility] Comment on above: Result Comment: Canc elled via OM: Order cancelled - Patient discharged Performed By: #### L 100.0100, L500.2500 ####[facility] [address] [place], [address] Basic Metabolic Profile (BMP) Normal 133-145 [facility] Comment on above: Result Comment: Canc elled via OM: Order cancelled - Patient discharged Performed By: #### L 100.0100, L500.2500 ####[facility] [address] [place], [address] CBC W/Diff, Automatedon 07-2 -2024 Absolute Neut Normal 2.0-7.7 [facility] Comment on above: Result Comment: Canc elled via OM: Order cancelled - Patient discharged Performed By: #### L 100.0100, L500.2500 ####[facility] [address] [place], [address] HCT Normal 37-47 [facility] Comment on above: Result Comment: Canc elled via OM: Order cancelled - Patient discharged Performed By: #### L 100.0100, L500.2500 ####[facility] [address] [place], [address] HGB Normal 12.0-15.0 [facility] Comment on above: Result Comment: Canc elled via OM: Order cancelled - Patient discharged Performed By: #### L 100.0100, L500.2500 ####[facility] [address] [place], [address] MCH Normal 27.0-32.0 [facility] Comment on above: Result Comment: Canc elled via OM: Order cancelled - Patient discharged Performed By: #### L 100.0100, L500.2500 ####[facility] [address] [place], [address] MCHC Normal 32-36 [facility] Comment on above: Result Comment: Canc elled via OM: Order cancelled - Patient discharged Performed By: #### L 100.0100, L500.2500 ####[facility] [address] [place], [address] MCV Normal 81-99 [facility] Comment on above: Result Comment: Canc elled via OM: Order cancelled - Patient discharged Performed By: #### L 100.0100, L500.2500 ####[facility] [address] [place], [address] NEUT% Normal 47-70 [facility] Comment on above: Result Comment: Canc elled via OM: Order cancelled - Patient discharged Performed By: #### L 100.0100, L500.2500 ####[facility] [address] [place], [address] PLT Normal 150-450 [facility] Comment on above: Result Comment: Canc elled via OM: Order cancelled - Patient discharged Performed By: #### L 100.0100, L500.2500 ####[facility] [address] [place], [address] RBC Normal 4.2-5.4 [facility] Comment on above: Result Comment: Canc elled via OM: Order cancelled - Patient discharged Performed By: #### L 100.0100, L500.2500 ####[facility] [address] [place], [address] RDW CV Normal 11.6-14.6 [facility] Comment on above: Result Comment: Canc elled via OM: Order cancelled - Patient discharged Performed By: #### L 100.0100, L500.2500 ####[facility] [address] [place], [address] RDW SD Normal 35.1-43.9 [facility] Comment on above: Result Comment: Canc elled via OM: Order cancelled - Patient discharged Performed By: #### L 100.0100, L500.2500 ####[facility] [address] [place], [address] WBC Normal 4.4-11.0 [facility] Comment on above: Result Comment: Canc elled via OM: Order cancelled - Patient discharged Performed By: #### L 100.0100, L500.2500 ####[facility] [address], [address] Absolute lymphocyte countOrd ered By: Jordana Hopkins on 09-05-2024 Lymphocytes Auto (Unsp spec) [#/Vol] 3.82 10*3/uL 0.83-4.51 [facility] Absolute neutrophil countOrd ered By: Jordanabrown Hopkins on 09-05-2024 Neutrophils (Bld) [#/Vol] 4.5 10*3/uL 2.0-7.7 [facility] Anion gap in Serum or Plasma Ordered By: Jordana Hopkins on 09-05-2024 Anion gap [Moles/Vol] 12 mmol/L 5-15 [facility] Automated lymphocyte count a s percentage of total leukocytesOrdered By: Jordana Hopkins on 09-05-2024 Lymphocytes/100 WBC Auto (Unsp spec) 41.5 % High 19-41 [facility] BUN/creatinine ratioOrdered By: Jordana Hopkins on 09-05-2024 Urea nitrogen/Creatinine [Mass ratio] 22.6 mg/mg High 10-20 [facility] Basic Metabolic Profile (BMP )on 09-05-2024 BUN/CRE 22.6 RATIO High 10-20 [facility] Comment on above: Performed By: #### L 100.0100, L500.2500 ####[facility] [address] [place], [address] Calcium [Mass/Vol] 9.0 mg/dL Normal 7.6-11.0 [facility] Comment on above: Performed By: #### L 100.0100, L500.2500 ####[facility] [address] [place], [address] Chloride [Moles/Vol] 106 mmol/L Normal 98-108 [facility] Comment on above: Performed By: #### L 100.0100, L500.2500 ####[facility] [address] [place], [address] CO2 [Moles/Vol] 23.7 mmol/L Normal 21.0-32.0 [facility] Comment on above: Performed By: #### L 100.0100, L500.2500 ####[facility] [address] [place], [address] Creatinine [Mass/Vol] 0.73 mg/dL Normal 0.70-1.20 [facility] Comment on above: Performed By: #### L 100.0100, L500.2500 ####[facility] [address] [place], [address] ECRCL 59.75 ml/min Normal 50-250 [facility] Comment on above: Performed By: #### L 100.0100, L500.2500 ####[facility] [address] [place], [address] GAP 12 Normal 5-15 [facility] Comment on above: Performed By: #### L 100.0100, L500.2500 ####[facility] [address] [place], [address] GFR/1.73 sq M.predicted among non-blacks MDRD (S/P/Bld) [Vol rate/Area] 89 mL/min/{1.73_m2} Normal >60 [facility] Comment on above: Result Comment: mL/m in/1.73m2 CKD-EPI Creatinine Equation (2020) Performed By: #### L 100.0100, L500.2500 ####[facility] [address] [place], [address] Glucose [Mass/Vol] 137 mg/dL High 70-99 [facility] Comment on above: Performed By: #### L 100.0100, L500.2500 ####[facility] [address] [place], [address] Potassium [Moles/Vol] 3.3 mmol/L Normal 3.3-5.1 [facility] Comment on above: Performed By: #### L 100.0100, L500.2500 ####[facility] [address] [place], [address] Sodium [Moles/Vol] 142 mmol/L Normal 133-145 [facility] Comment on above: Performed By: #### L 100.0100, L500.2500 ####[facility] [address] [place], [address] Urea nitrogen [Mass/Vol] 16 mg/dL Normal 4-19 [facility] Comment on above: Performed By: #### L 100.0100, L500.2500 ####[facility] [address] [place], [address] Basophil percentageOrdered B y: Jordana Hopkins on 09-05-2024 Basophils/100 WBC (Bld) 0.1 % 0-1 [facility] CBC W/Diff, Automatedon 08-13 Absolute Lymph 3.82 X10 3/uL Normal 0.83-4.51 [facility] Comment on above: Performed By: #### L 100.0100, L500.2500 ####[facility] [address] [place], [address] Absolute Neut 4.5 X10 3/uL Normal 2.0-7.7 [facility] Comment on above: Performed By: #### L 100.0100, L500.2500 ####[facility] [address] [place], [address] Basophils/100 WBC (Bld) 0.1 % Normal 0-1 [facility] Comment on above: Performed By: #### L 100.0100, L500.2500 ####[facility] [address] [place], [address] Eosinophils/100 WBC (Bld) 2.6 % Normal 0-5 [facility] Comment on above: Performed By: #### L 100.0100, L500.2500 ####[facility] [address] [place], [address] Erythrocyte distribution width (RBC) [Ratio] 12.7 % Normal 11.6-14.6 [facility] Comment on above: Performed By: #### L 100.0100, L500.2500 ####[facility] [address] [place], [address] Hematocrit (Bld) [Volume fraction] 38.2 % Normal 37-47 [facility] Comment on above: Performed By: #### L 100.0100, L500.2500 ####[facility] [address] [place], [address] Hemoglobin (Bld) [Mass/Vol] 12.7 g/dL Normal 12.0-15.0 [facility] Comment on above: Performed By: #### L 100.0100, L500.2500 ####[facility] [address] [place], [address] IG% 0.300 Normal 0.0-0.9 [facility] Comment on above: Result Comment: IG% - Immature Granulocytes (promyelocytes, myelocytes andmetamyelocytes) > 1% indicates that a LEFT SHIFT is Present. Performed By: #### L 100.0100, L500.2500 ####[facility] [address] [place], [address] Lymphocytes/100 WBC (Bld) 41.5 % High 19-41 [facility] Comment on above: Performed By: #### L 100.0100, L500.2500 ####[facility] [address] [place], [address] MCH (RBC) [Entitic mass] 28.9 pg Normal 27.0-32.0 [facility] Comment on above: Performed By: #### L 100.0100, L500.2500 ####[facility] [address] [place], [address] MCHC (RBC) [Mass/Vol] 33.2 g/dL Normal 32-36 [facility] Comment on above: Performed By: #### L 100.0100, L500.2500 ####[facility] [address] [place], [address] MCV (RBC) [Entitic vol] 87.0 fL Normal 81-99 [facility] Comment on above: Performed By: #### L 100.0100, L500.2500 ####[facility] [address] [place], [address] Monocytes/100 WBC (Bld) 6.2 % Normal 0-10 [facility] Comment on above: Performed By: #### L 100.0100, L500.2500 ####[facility] [address] [place], [address] Neutrophils/100 WBC (Bld) 49.3 % Normal 47-70 [facility] Comment on above: Performed By: #### L 100.0100, L500.2500 ####[facility] [address] [place], [address] Nucleated RBC (Bld) [#/Vol] 0 10*3/uL Normal 0-5 [facility] Comment on above: Performed By: #### L 100.0100, L500.2500 ####[facility] [address] [place], [address] Platelet mean volume (Bld) [Entitic vol] 10.1 fL Normal 6.2-12.0 [facility] Comment on above: Performed By: #### L 100.0100, L500.2500 ####[facility] [address] [place], [address] Platelets (Bld) [#/Vol] 239 10*3/uL Normal 150-450 [facility] Comment on above: Performed By: #### L 100.0100, L500.2500 ####[facility] [address] [place], [address] RBC (Bld) [#/Vol] 4.39 10*6/uL Normal 4.2-5.4 [facility] Comment on above: Performed By: #### L 100.0100, L500.2500 ####[facility] [address] [place], [address] RDW SD 40.4 fl Normal 35.1-43.9 [facility] Comment on above: Performed By: #### L 100.0100, L500.2500 ####[facility] [address] [place], [address] WBC (Bld) [#/Vol] 9.2 10*3/uL Normal 4.4-11.0 [facility] Comment on above: Performed By: #### L 100.0100, L500.2500 ####[facility] [address] [place], [address] Carbon dioxide, total [Moles /volume] in Central venous bloodOrdered By: Jordana Hopkins on 09-05-2024 CO2 [Moles/Vol] 23.7 mmol/L 21.0-32.0 [facility] Chloride assayOrdered By: Meaghan Hopkins on 09-05-2024 Chloride [Moles/Vol] 106 mmol/L 98-108 [facility] Discharge Instructionon 08-13 Discharge Instruction Normal [facility] Eosinophil percentageOrdered By: Jordana Hopkins on 09-05-2024 Eosinophils/100 WBC (Bld) 2.6 % 0-5 [facility] Erythrocyte distribution wid th ratioOrdered By: Jordana Hopkins on 09-05-2024 Erythrocyte distribution width (RBC) [Ratio] 12.7 % 11.6-14.6 [facility] Erythrocyte distribution wid th standard deviationOrdered By: Jordana Hopkins on 09-05-2024 Erythrocyte distribution width (RBC) [Ratio] 40.4 fl 35.1-43.9 [facility] Glomerular filtration rate ( GFR) estimation/1.73 sq m using serum, plasma, or whole bOrdered By: Jordana Hopkins on 09-05-2024 GFR/1.73 sq M.predicted among non-blacks MDRD (S/P/Bld) [Vol rate/Area] 89 mL/min/{1.73_m2} >60 [facility] Comment on above: mL/min/1.73m2 CKD-EP I Creatinine Equation (2020) Hematocrit Auto (Bld) [Volum e fraction]Ordered By: Jordana Hopkins on 09-05-2024 Hematocrit (Bld) [Volume fraction] 38.2 % 37-47 [facility] Hemoglobin measurementOrdere d By: Jordana Hopkins 09-05-2024 Hemoglobin (Bld) [Mass/Vol] 12.7 g/dL 12.0-15.0 [facility] Immature granulocytes/100 WB C Auto (Bld)Ordered By: Jordana Hopkins 09-05-2024 Immature granulocytes/100 WBC (Bld) 0.300 % 0.0-0.9 [facility] Comment on above: IG% - Immature Granu locytes (promyelocytes, myelocytes and metamyelocytes) > 1% indicates that a LEFT SHIFT is Present. MCV (mean corpuscular volume ) determinationOrdered By: Jordana Hopkins 09-05-2024 MCV (RBC) [Entitic vol] 87.0 fL 81-99 [facility] Mean corpuscular hemoglobin (MCH) determinationOrdered By: Jordana Hopkins 09-05-2024 MCH (RBC) [Entitic mass] 28.9 pg 27.0-32.0 [facility] Mean corpuscular hemoglobin concentration (MCHC) determinationOrdered By: Jordana Hopkins on 09-05-2024 MCHC (RBC) [Mass/Vol] 33.2 g/dL 32-36 [facility] Mean platelet volume determi nationOrdered By: Jordana Hopkins on 09-05-2024 Platelet mean volume (Bld) [Entitic vol] 10.1 fL 6.2-12.0 [facility] Monocyte percentageOrdered B y: Jordana Hopkins on 09-05-2024 Monocytes/100 WBC (Bld) 6.2 % 0-10 [facility] Neutrophil percentageOrdered By: Jordana Hopkins on 09-05-2024 Neutrophils/100 WBC (Bld) 49.3 % 47-70 [facility] Nucleated red blood cell per centageOrdered By: Jordana Hopkins on 09-05-2024 Nucleated RBC/100 WBC (Bld) [Ratio] 0 % 0-5 [facility] Platelet countOrdered By: Meaghan Hopkins on 09-05-2024 Platelets (Bld) [#/Vol] 239 10*3/uL 150-450 [facility] Potassium measurement (mass/ volume)Ordered By: Jordana Hopkins on 09-05-2024 Potassium (Unsp spec) [Mass/Vol] 3.3 mmol/L 3.3-5.1 [facility] RBC Auto (Bld) [#/Vol]Ordere d By: Jordana Hopkins on 09-05-2024 RBC (Bld) [#/Vol] 4.39 10*6/uL 4.2-5.4 [facility] Serum creatinine measurement (mass/volume)Ordered By: Jordana Hopkins on 09-05-2024 Creatinine [Mass/Vol] 0.73 mg/dL 0.70-1.20 [facility] Serum glucose measurement (m ass/volume)Ordered By: Jordana Hopkins on 09-05-2024 Glucose [Mass/Vol] 137 mg/dL High 70-99 [facility] Serum or plasma calcium timbo urement (mass/volume)Ordered By: Jordana Hopkins on 09-05-2024 Calcium [Mass/Vol] 9.0 mg/dL 7.6-11.0 [facility] Serum or plasma urea nitroge n measurement (mass/volume)Ordered By: Jordanabrown Hopkins on 09-05-2024 Urea nitrogen [Mass/Vol] 16 mg/dL 4-19 [facility] Sodium levelOrdered By: Jordanabrown Hopkins on 09-05-2024 Sodium [Moles/Vol] 142 mmol/L 133-145 [facility] White blood cell (WBC) count Ordered By: Jordanabrown Hopkins on 09-05-2024 WBC (Bld) [#/Vol] 9.2 10*3/uL 4.4-11.0 [facility] GPC IDon 09-04-2024 GPC ID Normal [facility] Comment on above: Performed By: #### L 300.4310, L100.0100, L500.4050, L503.6005, M200.1000, M100.636, L501.3620, L300.3900 ####[facility] [address] [place], [address] Basic Metabolic Profile (BMP )on 09-04-2024 BUN/CRE 19.2 RATIO Normal 10-20 [facility] Comment on above: Performed By: #### L 100.0100, L500.2500 ####[facility] [address] [place], [address] Calcium [Mass/Vol] 9.1 mg/dL Normal 7.6-11.0 [facility] Comment on above: Performed By: #### L 100.0100, L500.2500 ####[facility] [address] [place], [address] Chloride [Moles/Vol] 105 mmol/L Normal 98-108 [facility] Comment on above: Performed By: #### L 100.0100, L500.2500 ####[facility] [address] [place], [address] CO2 [Moles/Vol] 23.9 mmol/L Normal 21.0-32.0 [facility] Comment on above: Performed By: #### L 100.0100, L500.2500 ####[facility] [address] [place], [address] Creatinine [Mass/Vol] 0.70 mg/dL Normal 0.70-1.20 [facility] Comment on above: Performed By: #### L 100.0100, L500.2500 ####[facility] [address] [place], [address] ECRCL 59.95 ml/min Normal 50-250 [facility] Comment on above: Performed By: #### L 100.0100, L500.2500 ####[facility] [address] [place], [address] GAP 12 Normal 5-15 [facility] Comment on above: Performed By: #### L 100.0100, L500.2500 ####[facility] [address] [place], [address] GFR/1.73 sq M.predicted among non-blacks MDRD (S/P/Bld) [Vol rate/Area] 93 mL/min/{1.73_m2} Normal >60 [facility] Comment on above: Result Comment: mL/m in/1.73m2 CKD-EPI Creatinine Equation (2020) Performed By: #### L 100.0100, L500.2500 ####[facility] [address] [place], [address] Glucose [Mass/Vol] 105 mg/dL High 70-99 [facility] Comment on above: Performed By: #### L 100.0100, L500.2500 ####[facility] [address] [place], [address] Potassium [Moles/Vol] 3.3 mmol/L Normal 3.3-5.1 [facility] Comment on above: Performed By: #### L 100.0100, L500.2500 ####[facility] [address] [place], [address] Sodium [Moles/Vol] 141 mmol/L Normal 133-145 [facility] Comment on above: Performed By: #### L 100.0100, L500.2500 ####[facility] [address] [place], [address] Urea nitrogen [Mass/Vol] 13 mg/dL Normal 4-19 [facility] Comment on above: Performed By: #### L 100.0100, L500.2500 ####[facility] [address] [place], [address] CBC W/Diff, Automatedon -2 -2024 Absolute Lymph 3.71 X10 3/uL Normal 0.83-4.51 [facility] Comment on above: Performed By: #### L 100.0100, L500.2500 ####[facility] [address] [place], [address] Absolute Neut 5.0 X10 3/uL Normal 2.0-7.7 [facility] Comment on above: Performed By: #### L 100.0100, L500.2500 ####[facility] [address] [place], [address] Basophils/100 WBC (Bld) 0.1 % Normal 0-1 [facility] Comment on above: Performed By: #### L 100.0100, L500.2500 ####[facility] [address] [place], [address] Eosinophils/100 WBC (Bld) 2.0 % Normal 0-5 [facility] Comment on above: Performed By: #### L 100.0100, L500.2500 ####[facility] [address] [place], [address] Erythrocyte distribution width (RBC) [Ratio] 12.9 % Normal 11.6-14.6 [facility] Comment on above: Performed By: #### L 100.0100, L500.2500 ####[facility] [address] [place], [address] Hematocrit (Bld) [Volume fraction] 38.2 % Normal 37-47 [facility] Comment on above: Performed By: #### L 100.0100, L500.2500 ####[facility] [address] [place], [address] Hemoglobin (Bld) [Mass/Vol] 12.6 g/dL Normal 12.0-15.0 [facility] Comment on above: Performed By: #### L 100.0100, L500.2500 ####[facility] [address] [place], [address] IG% 0.300 Normal 0.0-0.9 [facility] Comment on above: Result Comment: IG% - Immature Granulocytes (promyelocytes, myelocytes andmetamyelocytes) > 1% indicates that a LEFT SHIFT is Present. Performed By: #### L 100.0100, L500.2500 ####[facility] [address] [place], [address] Lymphocytes/100 WBC (Bld) 39.1 % Normal 19-41 [facility] Comment on above: Performed By: #### L 100.0100, L500.2500 ####[facility] [address] [place], [address] MCH (RBC) [Entitic mass] 28.6 pg Normal 27.0-32.0 [facility] Comment on above: Performed By: #### L 100.0100, L500.2500 ####[facility] [address] [place], [address] MCHC (RBC) [Mass/Vol] 33.0 g/dL Normal 32-36 [facility] Comment on above: Performed By: #### L 100.0100, L500.2500 ####[facility] [address] [place], [address] MCV (RBC) [Entitic vol] 86.6 fL Normal 81-99 [facility] Comment on above: Performed By: #### L 100.0100, L500.2500 ####[facility] [address] [place], [address] Monocytes/100 WBC (Bld) 5.9 % Normal 0-10 [facility] Comment on above: Performed By: #### L 100.0100, L500.2500 ####[facility] [address] [place], [address] Neutrophils/100 WBC (Bld) 52.6 % Normal 47-70 [facility] Comment on above: Performed By: #### L 100.0100, L500.2500 ####[facility] [address] [place], [address] Nucleated RBC (Bld) [#/Vol] 0 10*3/uL Normal 0-5 [facility] Comment on above: Performed By: #### L 100.0100, L500.2500 ####[facility] [address] [place], [address] Platelet mean volume (Bld) [Entitic vol] 9.3 fL Normal 6.2-12.0 [facility] Comment on above: Performed By: #### L 100.0100, L500.2500 ####[facility] [address] [place], [address] Platelets (Bld) [#/Vol] 232 10*3/uL Normal 150-450 [facility] Comment on above: Performed By: #### L 100.0100, L500.2500 ####[facility] [address] [place], [address] RBC (Bld) [#/Vol] 4.41 10*6/uL Normal 4.2-5.4 [facility] Comment on above: Performed By: #### L 100.0100, L500.2500 ####[facility] [address] [place], [address] RDW SD 40.9 fl Normal 35.1-43.9 [facility] Comment on above: Performed By: #### L 100.0100, L500.2500 ####[facility] [address] [place], [address] WBC (Bld) [#/Vol] 9.5 10*3/uL Normal 4.4-11.0 [facility] Comment on above: Performed By: #### L 100.0100, L500.2500 ####[facility] [address] [place], [address] Basic Metabolic Profile (BMP )on 09-03-2024 BUN/CRE 23.4 RATIO High 10-20 [facility] Comment on above: Performed By: #### L 100.0100, L501.5200, L500.2500 ####[facility] [address] [place], [address] Calcium [Mass/Vol] 8.7 mg/dL Normal 7.6-11.0 [facility] Comment on above: Performed By: #### L 100.0100, L501.5200, L500.2500 ####[facility] [address] [place], [address] Chloride [Moles/Vol] 106 mmol/L Normal 98-108 [facility] Comment on above: Performed By: #### L 100.0100, L501.5200, L500.2500 ####[facility] [address] [place], [address] CO2 [Moles/Vol] 23.0 mmol/L Normal 21.0-32.0 [facility] Comment on above: Performed By: #### L 100.0100, L501.5200, L500.2500 ####[facility] [address] [place], [address] Creatinine [Mass/Vol] 0.76 mg/dL Normal 0.70-1.20 [facility] Comment on above: Performed By: #### L 100.0100, L501.5200, L500.2500 ####[facility] [address] [place], [address] GAP 11 Normal 5-15 [facility] Comment on above: Performed By: #### L 100.0100, L501.5200, L500.2500 ####[facility] [address] [place], [address] GFR/1.73 sq M.predicted among non-blacks MDRD (S/P/Bld) [Vol rate/Area] 85 mL/min/{1.73_m2} Normal >60 [facility] Comment on above: Result Comment: mL/m in/1.73m2 CKD-EPI Creatinine Equation (2020) Performed By: #### L 100.0100, L501.5200, L500.2500 ####[facility] [address] [place], [address] Glucose [Mass/Vol] 203 mg/dL High 70-99 [facility] Comment on above: Performed By: #### L 100.0100, L501.5200, L500.2500 ####[facility] [address] [place], [address] Potassium [Moles/Vol] 3.0 mmol/L Low 3.3-5.1 [facility] Comment on above: Performed By: #### L 100.0100, L501.5200, L500.2500 ####[facility] [address] [place], [address] Sodium [Moles/Vol] 140 mmol/L Normal 133-145 [facility] Comment on above: Performed By: #### L 100.0100, L501.5200, L500.2500 ####[facility] [address] [place], [address] Urea nitrogen [Mass/Vol] 18 mg/dL Normal 4-19 [facility] Comment on above: Performed By: #### L 100.0100, L501.5200, L500.2500 ####[facility] [address] [place], [address] Bedside Glucoseon 09-03-2024 FINGERSTICK GLU 194 mg/dL High 74-106 [facility] Comment on above: Result Comment: GERALDO BEGUM OF PATIENT CARE PER NURSING PROTOCOL Performed By: #### L 501.080 ####[facility] [address] [place], [address] CBC W/Diff, Automatedon 08-13 Absolute Lymph 3.09 X10 3/uL Normal 0.83-4.51 [facility] Comment on above: Performed By: #### L 100.0100, L501.5200, L500.2500 ####[facility] [address] [place], [address] Absolute Neut 9.4 X10 3/uL High 2.0-7.7 [facility] Comment on above: Performed By: #### L 100.0100, L501.5200, L500.2500 ####[facility] [address] [place], [address] Basophils/100 WBC (Bld) 0.1 % Normal 0-1 [facility] Comment on above: Performed By: #### L 100.0100, L501.5200, L500.2500 ####[facility] [address] [place], [address] Eosinophils/100 WBC (Bld) 0.6 % Normal 0-5 [facility] Comment on above: Performed By: #### L 100.0100, L501.5200, L500.2500 ####[facility] [address] [place], [address] Erythrocyte distribution width (RBC) [Ratio] 13.1 % Normal 11.6-14.6 [facility] Comment on above: Performed By: #### L 100.0100, L501.5200, L500.2500 ####[facility] [address] [place], [address] Hematocrit (Bld) [Volume fraction] 36.3 % Low 37-47 [facility] Comment on above: Performed By: #### L 100.0100, L501.5200, L500.2500 ####[facility] [address] [place], [address] Hemoglobin (Bld) [Mass/Vol] 11.9 g/dL Low 12.0-15.0 [facility] Comment on above: Performed By: #### L 100.0100, L501.5200, L500.2500 ####[facility] [address] [place], [address] IG% 0.400 Normal 0.0-0.9 [facility] Comment on above: Result Comment: IG% - Immature Granulocytes (promyelocytes, myelocytes andmetamyelocytes) > 1% indicates that a LEFT SHIFT is Present. Performed By: #### L 100.0100, L501.5200, L500.2500 ####[facility] [address] [place], [address] Lymphocytes/100 WBC (Bld) 22.8 % Normal 19-41 [facility] Comment on above: Performed By: #### L 100.0100, L501.5200, L500.2500 ####[facility] [address] [place], [address] MCH (RBC) [Entitic mass] 28.4 pg Normal 27.0-32.0 [facility] Comment on above: Performed By: #### L 100.0100, L501.5200, L500.2500 ####[facility] [address] [place], [address] MCHC (RBC) [Mass/Vol] 32.8 g/dL Normal 32-36 [facility] Comment on above: Performed By: #### L 100.0100, L501.5200, L500.2500 ####[facility] [address] [place], [address] MCV (RBC) [Entitic vol] 86.6 fL Normal 81-99 [facility] Comment on above: Performed By: #### L 100.0100, L501.5200, L500.2500 ####[facility] [address] [place], [address] Monocytes/100 WBC (Bld) 6.6 % Normal 0-10 [facility] Comment on above: Performed By: #### L 100.0100, L501.5200, L500.2500 ####[facility] [address] [place], [address] Neutrophils/100 WBC (Bld) 69.5 % Normal 47-70 [facility] Comment on above: Performed By: #### L 100.0100, L501.5200, L500.2500 ####[facility] [address] [place], [address] Nucleated RBC (Bld) [#/Vol] 0 10*3/uL Normal 0-5 [facility] Comment on above: Performed By: #### L 100.0100, L501.5200, L500.2500 ####[facility] [address] [place], [address] Platelet mean volume (Bld) [Entitic vol] 9.5 fL Normal 6.2-12.0 [facility] Comment on above: Performed By: #### L 100.0100, L501.5200, L500.2500 ####[facility] [address] [place], [address] Platelets (Bld) [#/Vol] 233 10*3/uL Normal 150-450 [facility] Comment on above: Performed By: #### L 100.0100, L501.5200, L500.2500 ####[facility] [address] [place], [address] RBC (Bld) [#/Vol] 4.19 10*6/uL Low 4.2-5.4 [facility] Comment on above: Performed By: #### L 100.0100, L501.5200, L500.2500 ####[facility] [address] [place], [address] RDW SD 41.2 fl Normal 35.1-43.9 [facility] Comment on above: Performed By: #### L 100.0100, L501.5200, L500.2500 ####[facility] [address] [place], [address] WBC (Bld) [#/Vol] 13.6 10*3/uL High 4.4-11.0 [facility] Comment on above: Performed By: #### L 100.0100, L501.5200, L500.2500 ####[facility] [address] [place], [address] Culture, Blood (WB)on 2024 CUB Blood cultures x2, f rom two different sites No growth in 5 days. Normal [facility] Comment on above: Performed By: #### L 300.4310, L100.0100, L500.4050, L503.6005, M200.1000, M100.636, L501.3620, L300.3900 ####[facility] [address] [place], [address] Glucose measurement at [facility] deOrdered By: Jordana Hopkins on 09-03-2024 Glucose [Mass/Vol] 194 mg/dL High 74-106 [facility] Comment on above: MANAGEMENT OF PATIEN T CARE PER NURSING PROTOCOL Magnesiumon 09-03-2024 Magnesium [Mass/Vol] 1.7 mg/dL Normal 1.5-2.2 [facility] Comment on above: Performed By: #### L 100.0100, L501.5200, L500.2500 ####[facility] [address] [place], [address] Magnesium measurement (mass/ volume)Ordered By: Kanwal Aguilar on 09-03-2024 Magnesium (Unsp spec) [Mass/Vol] 1.7 mg/dL 1.5-2.2 [facility] Urine Cultureon 09-03-2024 URC Normal [facility] Comment on above: Performed By: #### M 100.2200, L400.0001 ####[facility] [address] [place], [address] Basic Metabolic Profile (BMP )on 09-02-2024 BUN/CRE 31.0 RATIO High 10-20 [facility] Comment on above: Performed By: #### L 100.0100, L500.2500 ####[facility] [address] [place], [address] Calcium [Mass/Vol] 8.5 mg/dL Normal 7.6-11.0 [facility] Comment on above: Performed By: #### L 100.0100, L500.2500 ####[facility] [address] [place], [address] Chloride [Moles/Vol] 116 mmol/L High 98-108 [facility] Comment on above: Performed By: #### L 100.0100, L500.2500 ####[facility] [address] [place], [address] CO2 [Moles/Vol] 20.7 mmol/L Low 21.0-32.0 [facility] Comment on above: Performed By: #### L 100.0100, L500.2500 ####[facility] [address] [place], [address] Creatinine [Mass/Vol] 0.85 mg/dL Normal 0.70-1.20 [facility] Comment on above: Performed By: #### L 100.0100, L500.2500 ####[facility] [address] [place], [address] ECRCL 55.76 ml/min Normal 50-250 [facility] Comment on above: Performed By: #### L 100.0100, L500.2500 ####[facility] [address] [place], [address] GAP 11 Normal 5-15 [facility] Comment on above: Performed By: #### L 100.0100, L500.2500 ####[facility] [address] [place], [address] GFR/1.73 sq M.predicted among non-blacks MDRD (S/P/Bld) [Vol rate/Area] 74 mL/min/{1.73_m2} Normal >60 [facility] Comment on above: Result Comment: mL/m in/1.73m2 CKD-EPI Creatinine Equation (2020) Performed By: #### L 100.0100, L500.2500 ####[facility] [address] [place], [address] Glucose [Mass/Vol] 130 mg/dL High 70-99 [facility] Comment on above: Performed By: #### L 100.0100, L500.2500 ####[facility] [address] [place], [address] Potassium [Moles/Vol] 3.2 mmol/L Low 3.3-5.1 [facility] Comment on above: Performed By: #### L 100.0100, L500.2500 ####[facility] [address] [place], [address] Sodium [Moles/Vol] 147 mmol/L High 133-145 [facility] Comment on above: Performed By: #### L 100.0100, L500.2500 ####[facility] [address] [place], [address] Urea nitrogen [Mass/Vol] 26 mg/dL High 4-19 [facility] Comment on above: Performed By: #### L 100.0100, L500.2500 ####[facility] [address] [place], [address] Bedside Glucoseon 09-02-2024 FINGERSTICK GLU 171 mg/dL High 74-106 [facility] Comment on above: Result Comment: GERALDO GEMENT OF PATIENT CARE PER NURSING PROTOCOL Performed By: #### L 501.080 ####[facility] [address] [place], [address] FINGERSTICK GLU 124 mg/dL High 74-106 [facility] Comment on above: Result Comment: GERALDO GEMENT OF PATIENT CARE PER NURSING PROTOCOL Performed By: #### L 501.080 ####[facility] [address] [place], [address] FINGERSTICK GLU 113 mg/dL High 74-106 [facility] Comment on above: Result Comment: GERALDO GEMENT OF PATIENT CARE PER NURSING PROTOCOL Performed By: #### L 501.080 ####[facility] [address] [place], [address] CBC W/Diff, Automatedon 07-2 Absolute Lymph 2.49 X10 3/uL Normal 0.83-4.51 [facility] Comment on above: Performed By: #### L 100.0100, L500.2500 ####[facility] [address] [place], [address] Absolute Neut 10.4 X10 3/uL High 2.0-7.7 [facility] Comment on above: Performed By: #### L 100.0100, L500.2500 ####[facility] [address] [place], [address] Basophils/100 WBC (Bld) 0.1 % Normal 0-1 [facility] Comment on above: Performed By: #### L 100.0100, L500.2500 ####[facility] [address] [place], [address] Eosinophils/100 WBC (Bld) 0.4 % Normal 0-5 [facility] Comment on above: Performed By: #### L 100.0100, L500.2500 ####[facility] [address] [place], [address] Erythrocyte distribution width (RBC) [Ratio] 13.5 % Normal 11.6-14.6 [facility] Comment on above: Performed By: #### L 100.0100, L500.2500 ####[facility] [address] [place], [address] Hematocrit (Bld) [Volume fraction] 36.7 % Low 37-47 [facility] Comment on above: Performed By: #### L 100.0100, L500.2500 ####[facility] [address] [place], [address] Hemoglobin (Bld) [Mass/Vol] 11.8 g/dL Low 12.0-15.0 [facility] Comment on above: Performed By: #### L 100.0100, L500.2500 ####[facility] [address] [place], [address] IG% 0.400 Normal 0.0-0.9 [facility] Comment on above: Result Comment: IG% - Immature Granulocytes (promyelocytes, myelocytes andmetamyelocytes) > 1% indicates that a LEFT SHIFT is Present. Performed By: #### L 100.0100, L500.2500 ####[facility] [address] [place], [address] Lymphocytes/100 WBC (Bld) 17.9 % Low 19-41 [facility] Comment on above: Performed By: #### L 100.0100, L500.2500 ####[facility] [address] [place], [address] MCH (RBC) [Entitic mass] 28.6 pg Normal 27.0-32.0 [facility] Comment on above: Performed By: #### L 100.0100, L500.2500 ####[facility] [address] [place], [address] MCHC (RBC) [Mass/Vol] 32.2 g/dL Normal 32-36 [facility] Comment on above: Performed By: #### L 100.0100, L500.2500 ####[facility] [address] [place], [address] MCV (RBC) [Entitic vol] 88.9 fL Normal 81-99 [facility] Comment on above: Performed By: #### L 100.0100, L500.2500 ####[facility] [address] [place], [address] Monocytes/100 WBC (Bld) 6.1 % Normal 0-10 [facility] Comment on above: Performed By: #### L 100.0100, L500.2500 ####[facility] [address] [place], [address] Neutrophils/100 WBC (Bld) 75.1 % High 47-70 [facility] Comment on above: Performed By: #### L 100.0100, L500.2500 ####[facility] [address] [place], [address] Nucleated RBC (Bld) [#/Vol] 0 10*3/uL Normal 0-5 [facility] Comment on above: Performed By: #### L 100.0100, L500.2500 ####[facility] [address] [place], [address] Platelet mean volume (Bld) [Entitic vol] 9.8 fL Normal 6.2-12.0 [facility] Comment on above: Performed By: #### L 100.0100, L500.2500 ####[facility] [address] [place], [address] Platelets (Bld) [#/Vol] 248 10*3/uL Normal 150-450 [facility] Comment on above: Performed By: #### L 100.0100, L500.2500 ####[facility] [address] [place], [address] RBC (Bld) [#/Vol] 4.13 10*6/uL Low 4.2-5.4 [facility] Comment on above: Performed By: #### L 100.0100, L500.2500 ####[facility] [address] [place], [address] RDW SD 43.8 fl Normal 35.1-43.9 [facility] Comment on above: Performed By: #### L 100.0100, L500.2500 ####[facility] [address] [place], [address] WBC (Bld) [#/Vol] 13.9 10*3/uL High 4.4-11.0 [facility] Comment on above: Performed By: #### L 100.0100, L500.2500 ####[facility] [address] [place], [address] Consultation - Infectious Dx on 09-02-2024 Consultation - Infectious Dx Normal [facility] Spine Lumbar (Routine)on Spine Lumbar (Routine) Normal [facility] 12 Lead EKGon 09-01-2024 12 Lead EKG Normal [facility] Abdomen/Pelvis without Conto n 09-01-2024 Abdomen/Pelvis without Cont Normal [facility] Absolute lymphocyte countOrd ered By: Nico Arce on 09-01-2024 Lymphocytes Auto (Unsp spec) [#/Vol] 2.01 10*3/uL 0.83-4.51 [facility] Absolute neutrophil countOrd ered By: Nico Arce on 09-01-2024 Neutrophils (Bld) [#/Vol] 20.0 10*3/uL High 2.0-7.7 [facility] Activated partial thrombopla stin time (aPTT) in platelet poor plasma by coagulation aOrdered By: Nico Arce on 09-01-2024 aPTT Coag (PPP) [Time] 26.2 s 24.1-36.2 [facility] Anion gap in Serum or Plasma Ordered By: Nico Arce on 09-01-2024 Anion gap [Moles/Vol] 25 mmol/L High 5-15 [facility] Automated lymphocyte count a s percentage of total leukocytesOrdered By: Nico Arce on 09-01-2024 Lymphocytes/100 WBC Auto (Unsp spec) 8.5 % Low 19-41 [facility] BUN/creatinine ratioOrdered By: Nico Arce on 09-01-2024 Urea nitrogen/Creatinine [Mass ratio] 21.8 mg/mg High 10-20 [facility] Basophil percentageOrdered B y: Nico Arce on 09-01-2024 Basophils/100 WBC (Bld) 0.3 % 0-1 [facility] Bilirubin Test strip Ql (U)O rdered By: Nico Arce on 09-01-2024 Bilirubin Ql (U) Negative Negative [facility] Bilirubin, totalOrdered By: Nioc Arce on 09-01-2024 Bilirubin [Mass/Vol] 1.40 mg/dL High 0.00-1.30 [facility] Blood cultureOrdered By: Talia Arce on 09-01-2024 Bacteria identified Cx Nom (Bld) Staphylococcus warneri Abnormal [facility] Bacteria identified Cx Nom (Bld) No growth in 5 days. [facility] Brain/Head without Contrasto n 09-01-2024 Brain/Head without Contrast Normal [facility] CBC W/Diff, Automatedon 07- Hemoglobin (Bld) [Mass/Vol] 18.4 g/dL Invalid Interpretation Code 12.0-15.0 [facility] Comment on above: Result Comment: CRIT ICAL VALUE CALLED TO GURVINDER AVILA09/01/24 0055 Maegan Anderson.RESULTS READ BACK BY SAME. Performed By: #### L 300.4310, L100.0100, L500.4050, L503.6005, M200.1000, M100.636, L501.3620, L300.3900 ####[facility] [address] [place], [address] Absolute Lymph 2.01 X10 3/uL Normal 0.83-4.51 [facility] Comment on above: Performed By: #### L 300.4310, L100.0100, L500.4050, L503.6005, M200.1000, M100.636, L501.3620, L300.3900 ####[facility] [address] [place], [address] Absolute Neut 20.0 X10 3/uL High 2.0-7.7 [facility] Comment on above: Performed By: #### L 300.4310, L100.0100, L500.4050, L503.6005, M200.1000, M100.636, L501.3620, L300.3900 ####[facility] [address] [place], [address] Basophils/100 WBC (Bld) 0.3 % Normal 0-1 [facility] Comment on above: Performed By: #### L 300.4310, L100.0100, L500.4050, L503.6005, M200.1000, M100.636, L501.3620, L300.3900 ####[facility] [address] [place], [address] Eosinophils/100 WBC (Bld) 0.0 % Normal 0-5 [facility] Comment on above: Performed By: #### L 300.4310, L100.0100, L500.4050, L503.6005, M200.1000, M100.636, L501.3620, L300.3900 ####[facility] [address] [place], [address] Erythrocyte distribution width (RBC) [Ratio] 13.5 % Normal 11.6-14.6 [facility] Comment on above: Performed By: #### L 300.4310, L100.0100, L500.4050, L503.6005, M200.1000, M100.636, L501.3620, L300.3900 ####[facility] [address] [place], [address] Hematocrit (Bld) [Volume fraction] 54.4 % High 37-47 [facility] Comment on above: Performed By: #### L 300.4310, L100.0100, L500.4050, L503.6005, M200.1000, M100.636, L501.3620, L300.3900 ####[facility] [address] [place], [address] IG% 0.600 Normal 0.0-0.9 [facility] Comment on above: Result Comment: IG% - Immature Granulocytes (promyelocytes, myelocytes andmetamyelocytes) > 1% indicates that a LEFT SHIFT is Present. Performed By: #### L 300.4310, L100.0100, L500.4050, L503.6005, M200.1000, M100.636, L501.3620, L300.3900 ####[facility] [address] [place], [address] Lymphocytes/100 WBC (Bld) 8.5 % Low 19-41 [facility] Comment on above: Performed By: #### L 300.4310, L100.0100, L500.4050, L503.6005, M200.1000, M100.636, L501.3620, L300.3900 ####[facility] [address] [place], [address] MCH (RBC) [Entitic mass] 28.7 pg Normal 27.0-32.0 [facility] Comment on above: Performed By: #### L 300.4310, L100.0100, L500.4050, L503.6005, M200.1000, M100.636, L501.3620, L300.3900 ####[facility] [address] [place], [address] MCHC (RBC) [Mass/Vol] 33.8 g/dL Normal 32-36 [facility] Comment on above: Performed By: #### L 300.4310, L100.0100, L500.4050, L503.6005, M200.1000, M100.636, L501.3620, L300.3900 ####[facility] [address] [place], [address] MCV (RBC) [Entitic vol] 84.7 fL Normal 81-99 [facility] Comment on above: Performed By: #### L 300.4310, L100.0100, L500.4050, L503.6005, M200.1000, M100.636, L501.3620, L300.3900 ####[facility] [address] [place], [address] Monocytes/100 WBC (Bld) 6.3 % Normal 0-10 [facility] Comment on above: Performed By: #### L 300.4310, L100.0100, L500.4050, L503.6005, M200.1000, M100.636, L501.3620, L300.3900 ####[facility] [address] [place], [address] Neutrophils/100 WBC (Bld) 84.3 % High 47-70 [facility] Comment on above: Performed By: #### L 300.4310, L100.0100, L500.4050, L503.6005, M200.1000, M100.636, L501.3620, L300.3900 ####[facility] [address] [place], [address] Nucleated RBC (Bld) [#/Vol] 0 10*3/uL Normal 0-5 [facility] Comment on above: Performed By: #### L 300.4310, L100.0100, L500.4050, L503.6005, M200.1000, M100.636, L501.3620, L300.3900 ####[facility] [address] [place], [address] Platelet mean volume (Bld) [Entitic vol] 9.6 fL Normal 6.2-12.0 [facility] Comment on above: Performed By: #### L 300.4310, L100.0100, L500.4050, L503.6005, M200.1000, M100.636, L501.3620, L300.3900 ####[facility] [address] [place], [address] Platelets (Bld) [#/Vol] 434 10*3/uL Normal 150-450 [facility] Comment on above: Performed By: #### L 300.4310, L100.0100, L500.4050, L503.6005, M200.1000, M100.636, L501.3620, L300.3900 ####[facility] [address] [place], [address] RBC (Bld) [#/Vol] 6.42 10*6/uL High 4.2-5.4 [facility] Comment on above: Performed By: #### L 300.4310, L100.0100, L500.4050, L503.6005, M200.1000, M100.636, L501.3620, L300.3900 ####[facility] [address] [place], [address] RDW SD 40.5 fl Normal 35.1-43.9 [facility] Comment on above: Performed By: #### L 300.4310, L100.0100, L500.4050, L503.6005, M200.1000, M100.636, L501.3620, L300.3900 ####[facility] [address] [place], [place], [id number](053) WBC (Bld) [#/Vol] 23.7 10*3/uL High 4.4-11.0 [facility] Comment on above: Performed By: #### L 300.4310, L100.0100, L500.4050, L503.6005, M200.1000, M100.636, L501.3620, L300.3900 ####[facility] [address] [place], [place], [phone]) CO2 (BldV) [Moles/Vol]Ordere d By: Anuja Brown on 09-01-2024 CO2 [Moles/Vol] 23 mmol/L 23-33 [facility] CPK Total, Creatine Kinaseon 09-01-2024 CPK TOTAL 237 U/L High 24-195 [facility] Comment on above: Performed By: #### L 300.4310, L100.0100, L500.4050, L503.6005, M200.1000, M100.636, L501.3620, L300.3900 ####[facility] [address] [facility] [id number] Calculated very low density lipoprotein (VLDL) cholesterol measurementOrdered By: Anuja Brown on 09-01-2024 Calculated very low density lipoprotein (VLDL) cholesterol measurement 25 mg/dL 5-40 [facility] Carbon dioxide, total [Moles /volume] in Central venous bloodOrdered By: Nico Arce on 09-01-2024 CO2 [Moles/Vol] 16.4 mmol/L Low 21.0-32.0 [facility] Chest 1 View (Portable)on Chest 1 View (Portable) Normal [facility] Chest 1 View (Portable) Normal [facility] Chloride assayOrdered By: Uche Arce on 09-01-2024 Chloride [Moles/Vol] 100 mmol/L 98-108 [facility] Comprehensive Metabolic Prof ilon 09-01-2024 Albumin [Mass/Vol] 5.0 g/dL High 3.4-4.8 [facility] Comment on above: Performed By: #### L 300.4310, L100.0100, L500.4050, L503.6005, M200.1000, M100.636, L501.3620, L300.3900 ####[facility] [address] [place], [address] Albumin/Globulin [Mass ratio] 1.1 {ratio} Normal 0.9-2.4 [facility] Comment on above: Performed By: #### L 300.4310, L100.0100, L500.4050, L503.6005, M200.1000, M100.636, L501.3620, L300.3900 ####[facility] [address] [place], [address] ALK PHOS 166 U/L High 35-104 [facility] Comment on above: Performed By: #### L 300.4310, L100.0100, L500.4050, L503.6005, M200.1000, M100.636, L501.3620, L300.3900 ####[facility] [address] [place], [address] ALT [Catalytic activity/Vol] 49 U/L High <=34 [facility] Comment on above: Performed By: #### L 300.4310, L100.0100, L500.4050, L503.6005, M200.1000, M100.636, L501.3620, L300.3900 ####[facility] [address] [place], [address] AST [Catalytic activity/Vol] 53 U/L High <=31 [facility] Comment on above: Result Comment: Hemo lysis present, Results??could be affected.?? Performed By: #### L 300.4310, L100.0100, L500.4050, L503.6005, M200.1000, M100.636, L501.3620, L300.3900 ####[facility] [address] [place], [address] Bilirubin [Mass/Vol] 1.40 mg/dL High 0.00-1.30 [facility] Comment on above: Performed By: #### L 300.4310, L100.0100, L500.4050, L503.6005, M200.1000, M100.636, L501.3620, L300.3900 ####[facility] [address] [place], [address] BUN/CRE 21.8 RATIO High 10-20 [facility] Comment on above: Performed By: #### L 300.4310, L100.0100, L500.4050, L503.6005, M200.1000, M100.636, L501.3620, L300.3900 ####[facility] [address] [place], [address] Calcium [Mass/Vol] 11.2 mg/dL High 7.6-11.0 [facility] Comment on above: Performed By: #### L 300.4310, L100.0100, L500.4050, L503.6005, M200.1000, M100.636, L501.3620, L300.3900 ####[facility] [address] [place], [address] Chloride [Moles/Vol] 100 mmol/L Normal 98-108 [facility] Comment on above: Performed By: #### L 300.4310, L100.0100, L500.4050, L503.6005, M200.1000, M100.636, L501.3620, L300.3900 ####[facility] [address] [place], [address] CO2 [Moles/Vol] 16.4 mmol/L Low 21.0-32.0 [facility] Comment on above: Performed By: #### L 300.4310, L100.0100, L500.4050, L503.6005, M200.1000, M100.636, L501.3620, L300.3900 ####[facility] [address] [place], [address] Creatinine [Mass/Vol] 1.38 mg/dL High 0.70-1.20 [facility] Comment on above: Performed By: #### L 300.4310, L100.0100, L500.4050, L503.6005, M200.1000, M100.636, L501.3620, L300.3900 ####[facility] [address] [place], [address] ECRCL 31.38 ml/min Low 50-250 [facility] Comment on above: Performed By: #### L 300.4310, L100.0100, L500.4050, L503.6005, M200.1000, M100.636, L501.3620, L300.3900 ####[facility] [address] [place], [address] GAP 25 High 5-15 [facility] Comment on above: Performed By: #### L 300.4310, L100.0100, L500.4050, L503.6005, M200.1000, M100.636, L501.3620, L300.3900 ####[facility] [address] [place], [address] GFR/1.73 sq M.predicted among non-blacks MDRD (S/P/Bld) [Vol rate/Area] 41 mL/min/{1.73_m2} Low >60 [facility] Comment on above: Result Comment: mL/m in/1.73m2 CKD-EPI Creatinine Equation (2020) Performed By: #### L 300.4310, L100.0100, L500.4050, L503.6005, M200.1000, M100.636, L501.3620, L300.3900 ####[facility] [address] [place], [address] Globulin (S) [Mass/Vol] 4.4 g/dL High 2.2-4.2 [facility] Comment on above: Performed By: #### L 300.4310, L100.0100, L500.4050, L503.6005, M200.1000, M100.636, L501.3620, L300.3900 ####[facility] [address] [place], [address] Glucose [Mass/Vol] 244 mg/dL High 70-99 [facility] Comment on above: Performed By: #### L 300.4310, L100.0100, L500.4050, L503.6005, M200.1000, M100.636, L501.3620, L300.3900 ####[facility] [address] [place], [address] Potassium [Moles/Vol] 4.0 mmol/L Normal 3.3-5.1 [facility] Comment on above: Result Comment: Hemo lysis present, Results??could be affected.?? Performed By: #### L 300.4310, L100.0100, L500.4050, L503.6005, M200.1000, M100.636, L501.3620, L300.3900 ####[facility] [address] [place], [address] Sodium [Moles/Vol] 141 mmol/L Normal 133-145 [facility] Comment on above: Performed By: #### L 300.4310, L100.0100, L500.4050, L503.6005, M200.1000, M100.636, L501.3620, L300.3900 ####[facility] [address] [place], [place], [id number] T PROT 9.4 g/dL High 5.9-8.4 [facility] Comment on above: Performed By: #### L 300.4310, L100.0100, L500.4050, L503.6005, M200.1000, M100.636, L501.3620, L300.3900 ####[facility] [address] [place], [place], [id number] Urea nitrogen [Mass/Vol] 30 mg/dL High 4-19 [facility] Comment on above: Performed By: #### L 300.4310, L100.0100, L500.4050, L503.6005, M200.1000, M100.636, L501.3620, L300.3900 ####[facility] [address] [place], [place], [id number] Consultation - Intensiviston 09-01-2024 Consultation - Color Separation Photographer Normal [facility] D-Dimer Quantitative (DVT/PE )on 09-01-2024 D-DIMER QUANT 0.98 FEU/ug/m Invalid Interpretation Code 0.27-0.49 [facility] Comment on above: Result Comment: D-Di adria ELEVATED (>0.49): Additional studies and clinicalassessments are indicated to conclude diagnosis of:Deep Vein Thrombosis (DVT) or Pulmonary Embolism (PE)CRITICAL VALUE CALLED TO BINDU NELSON09/01/24 0602 Maegan Anderson.RESULTS READ BACK BY SAME. Performed By: #### L 300.8000 ####[facility] [address] [place], [place], [id number] Emergency Department Summary on 09-01-2024 Emergency Department Summary Normal [facility] Eosinophil percentageOrdered By: Nicoernesto Arce on 09-01-2024 Eosinophils/100 WBC (Bld) 0.0 % 0-5 [facility] Erythrocyte distribution wid th ratioOrdered By: Nicoernesto Arce on 09-01-2024 Erythrocyte distribution width (RBC) [Ratio] 13.5 % 11.6-14.6 [facility] Erythrocyte distribution wid th standard deviationOrdered By: [facility] on 09-01-2024 Erythrocyte distribution width (RBC) [Ratio] 40.5 fl 35.1-43.9 [facility] Folate [Moles/volume] in Ser um or PlasmaOrdered By: Anuja Brown on 09-01-2024 Folate [Moles/Vol] 20.00 ng/mL 4.60-34.80 [facility] Comment on above: Hemolysis, Results w ill be affected, Requires Recollection. Folates,Serum (Folic Acid)on 09-01-2024 FOLATES,SERUM 20.00 ng/mL Normal 4.60-34.80 [facility] Comment on above: Result Comment: Hemo lysis, Results will be affected, Requires Recollection. Performed By: #### L 506.0200 ####[facility] [address] [place], [place], [id number] Glomerular filtration rate ( GFR) estimation/1.73 sq m using serum, plasma, or whole bOrdered By: Nico Arce on 09-01-2024 GFR/1.73 sq M.predicted among non-blacks MDRD (S/P/Bld) [Vol rate/Area] 41 mL/min/{1.73_m2} Low >60 [facility] Comment on above: mL/min/1.73m2 CKD-EP I Creatinine Equation (2020) H AND P Exam - Hospitaliston 09-01-2024 H&P Exam - Hospitalist Normal [facility] Hematocrit Auto (Bld) [Volum e fraction]Ordered By: Nico Arce on 09-01-2024 Hematocrit (Bld) [Volume fraction] 54.4 % High 37-47 [facility] Hemoglobin A1con 09-01-2024 HbA1c (Bld) [Mass fraction] 5.7 % Normal <=5.6 [facility] Comment on above: Result Comment: Norm al < 5.7 % Prediabetic 5.7 - 6.4 % Diabetic >or= 6.5 % Please note range changes. Performed By: #### L 501.9985, L509.1000, L500.4100, L501.9520, L503.0106 ####[facility] [address] [place], [address] Hemoglobin A1c percentageOrd ered By: Anuja Brown on 09-01-2024 HbA1c (Bld) [Mass fraction] 5.7 % <5.7 [facility] Comment on above: Normal < 5.7 % Predi abetic 5.7 - 6.4 % Diabetic >or= 6.5 % Please note range changes. Hemoglobin measurementOrdere d By: Nico Arce on 09-01-2024 Hemoglobin (Bld) [Mass/Vol] 18.4 g/dL High 12.0-15.0 [facility] Comment on above: CRITICAL VALUE DAVIS D TO GURVINDER AVILA 09/01/24 0055 Maegan Anderson.RESULTS READ BACK BY SAME. Immature granulocytes/100 WB C Auto (Bld)Ordered By: Nico Arce on 09-01-2024 Immature granulocytes/100 WBC (Bld) 0.600 % 0.0-0.9 [facility] Comment on above: IG% - Immature Granu locytes (promyelocytes, myelocytes and metamyelocytes) > 1% indicates that a LEFT SHIFT is Present. International normalized rat io (INR) calculationOrdered By: Nico Arce on 09-01-2024 INR Coag (Bld) [Relative time] 1.2 {INR} [facility] Ketones Test strip Ql (U)Ord ered By: Nico Arce on 09-01-2024 Ketones Ql (U) 50 mg/dl High Negative [facility] L499.0042on 09-01-2024 Trop T High Sen 29 ng/L High <=14 [facility] Comment on above: Performed By: #### L 499.0042 ####[facility] [address] [place], [address] L499.0043on 09-01-2024 Trop T High Sen 25 ng/L High <=14 [facility] Comment on above: Performed By: #### L 499.0043 ####[facility] [address] [place], [address] L501.4021on 09-01-2024 Trop T High Sen 30 ng/L High <=14 [facility] Comment on above: Order Comment: RICO Herrera PREVIOUS SPECIMEN REJECTED DUE TOQNS. 09/01/24 0233 Kris Roberto. Performed By: #### L 501.4021 ####[facility] [address] [place], [address] LDL calc ser/plasOrdered By: Anuja Brown on 09-01-2024 Cholesterol in LDL [Mass/Vol] 84 mg/dL [facility] Comment on above: Tsvyizzciq=593-560 m g/dL & Higher Mmyo=409 mg/dL or greater Laboratory - Chemistry and C hemistry - challengeOrdered By: Nico Arce on 09-01-2024 AST [Catalytic activity/Vol] 53 U/L High <32 [facility] Comment on above: Hemolysis present, R esults could be affected. Lactic Acidon 09-01-2024 Lactate [Moles/Vol] mmol/L Normal 0.0-2.0 [facility] Comment on above: Performed By: #### L 503.6005 ####[facility] [address] [place], [address] Lactate [Moles/Vol] 2.2 mmol/L Invalid Interpretation Code 0.0-2.0 [facility] Comment on above: Order Comment: Y Result Comment: Crit ical Result(s) Called at 0135: by: MIGUELINA TURCIOS??Results read back by same. Performed By: #### L 300.4310, L100.0100, L500.4050, L503.6005, M200.1000, M100.636, L501.3620, L300.3900 ####[facility] [address] [place], [address] Lactic acid measurementOrder ed By: Nico Arce on 09-01-2024 Lactate [Moles/Vol] mmol/L 0.0-2.0 [facility] Lactate [Moles/Vol] 2.2 mmol/L High 0.0-2.0 [facility] Comment on above: Critical Result(s) C alled at 0135: by: MIGUELINA TO NILAMRTIAN Results read back by same. Lipid Profileon 09-01-2024 CHOL:HDL 2.81 Normal [facility] Comment on above: Performed By: #### L 501.9985, L509.1000, L500.4100, L501.9520, L503.0106 ####[facility] [address] [place], [address] Cholesterol [Mass/Vol] 170 mg/dL Normal <=200 [facility] Comment on above: Result Comment: Chol esterol level, Desirable <200 mg/dLBorderline high cholesterol 200-239 mg/dLHigh cholesterol >=240 mg/dLRecommendations of the NCEP Adult Treatment Panel for thefollowing risk-cutoff thresholds for the [place] American[place]. Performed By: #### L 501.9985, L509.1000, L500.4100, L501.9520, L503.0106 ####[facility] [address] [place], [address] Cholesterol in HDL [Mass/Vol] 61 mg/dL Normal [facility] Comment on above: Result Comment: Nicki onal Cholesterol Education Program (NCEP) guidelines:<40 mg/dL: Low HDL-cholesterol (major risk factor for CHD)>= 60 mg/dL: High HDL-cholesterol (negative risk factor forCHD)HDL-cholesterol is affected by a number of factors, e.g.smoking, exercise, hormones, sex and age. Performed By: #### L 501.9985, L509.1000, L500.4100, L501.9520, L503.0106 ####[facility] [address] [place], [address] Cholesterol in LDL [Mass/Vol] 84 mg/dL Normal [facility] Comment on above: Result Comment: Bord mcbckj=219-669 mg/dL Higher Docu=271 mg/dL or greater Performed By: #### L 501.9985, L509.1000, L500.4100, L501.9520, L503.0106 ####[facility] [address] [place], [address] Cholesterol in VLDL [Mass/Vol] 25 mg/dL Normal 5-40 [facility] Comment on above: Performed By: #### L 501.9985, L509.1000, L500.4100, L501.9520, L503.0106 ####[facility] [address] [place], [address] Triglyceride [Mass/Vol] 125 mg/dL Normal [facility] Comment on above: Result Comment: The drugs N-Acetylcysteine and Metamizole may falselydepress this assay.Normal range: <150 mg/dLBorderline High: 150-199 mg/dLHigh: 200-499 mg/dLVery High: >500 mg/dL Performed By: #### L 501.9985, L509.1000, L500.4100, L501.9520, L503.0106 ####[facility] [address] [place], [address] MCV (mean corpuscular volume ) determinationOrdered By: Nico Arce on 09-01-2024 MCV (RBC) [Entitic vol] 84.7 fL 81-99 [facility] Mean corpuscular hemoglobin (MCH) determinationOrdered By: Nico Arce on 09-01-2024 MCH (RBC) [Entitic mass] 28.7 pg 27.0-32.0 [facility] Mean corpuscular hemoglobin concentration (MCHC) determinationOrdered By: Nico Arce on 09-01-2024 MCHC (RBC) [Mass/Vol] 33.8 g/dL 32-36 [facility] Mean platelet volume determi nationOrdered By: Nico Arce on 09-01-2024 Platelet mean volume (Bld) [Entitic vol] 9.6 fL 6.2-12.0 [facility] Microscopic analysis of urin e for red blood cells (RBC)Ordered By: Nico Arce on 09-01-2024 Microscopic analysis of urine for red blood cells (RBC) 0-5 SEEN /hpf 0-5 [facility] Monocyte percentageOrdered B y: Nico Arce on 09-01-2024 Monocytes/100 WBC (Bld) 6.3 % 0-10 [facility] Mucus LM Ql (Urine sed)Order ed By: Nico Arce on 09-01-2024 Mucus Ql (Urine sed) 0 SEEN /hpf [facility] Neutrophil percentageOrdered By: Nico Arce on 09-01-2024 Neutrophils/100 WBC (Bld) 84.3 % High 47-70 [facility] Nitrite Test strip Ql (U)Ord ered By: Nico Arce on 09-01-2024 Nitrite Ql (U) Positive High Negative [facility] No Panel InformationOrdered By: Anuja Brown on 09-01-2024 Blood Gas Sample Site Central Line [facility] Blood Gas Specimen Type RADHA [facility] Oxygen Delivery Device Room Air [facility] RADHA [facility] Central Line [facility] Room Air [facility] No Panel InformationOrdered By: Nico Arce on 09-01-2024 53 U/L High <32 [facility] Nucleated red blood cell per centageOrdered By: Nico Arce on 09-01-2024 Nucleated RBC/100 WBC (Bld) [Ratio] 0 % 0-5 [facility] Organism identificationOrder ed By: Nico Arce on 09-01-2024 Microorganism identified Cx Nom (Unsp spec) Negative Abnormal [facility] PTHINon 09-01-2024 PTH 144 pg/mL High 11-61 [facility] Comment on above: Performed By: #### L 501.9985, L509.1000, L500.4100, L501.9520, L503.0106 ####[facility] [address] [place], [address] Partial Thromboplast Timeon 09-01-2024 aPTT Coag (Bld) [Time] 26.2 s Normal 24.1-36.2 [facility] Comment on above: Performed By: #### L 300.4310, L100.0100, L500.4050, L503.6005, M200.1000, M100.636, L501.3620, L300.3900 ####[facility] [address] [place], [place], [id number] Platelet countOrdered By: Uche Arce on 09-01-2024 Platelets (Bld) [#/Vol] 434 10*3/uL 150-450 [facility] Potassium measurement (mass/ volume)Ordered By: Nico Arce on 09-01-2024 Potassium (Unsp spec) [Mass/Vol] 4.0 mmol/L 3.3-5.1 [facility] Comment on above: Hemolysis present, R esults could be affected. Protein Test strip Ql (U)Ord ered By: Nico Arce on 09-01-2024 Protein Ql (U) 500 mg/dl High Negative [facility] Prothrombin Time w/INRon INR Coag (PPP) [Relative time] 1.2 {INR} Normal [facility] Comment on above: Performed By: #### L 300.4310, L100.0100, L500.4050, L503.6005, M200.1000, M100.636, L501.3620, L300.3900 ####[facility] [address] [place], [place], [id number] PT Coag (PPP) [Time] 15.1 s High 11.7-14.9 [facility] Comment on above: Performed By: #### L 300.4310, L100.0100, L500.4050, L503.6005, M200.1000, M100.636, L501.3620, L300.3900 ####[facility] [address] [place], [place], [id number] Prothrombin timeOrdered By: Nico Arce on 09-01-2024 PT Coag (PPP) [Time] 15.1 s High 11.7-14.9 [facility] RBC Auto (Bld) [#/Vol]Ordere d By: Nico Arce on 09-01-2024 RBC (Bld) [#/Vol] 6.42 10*6/uL High 4.2-5.4 [facility] Screening total cholesterol/ high density lipoprotein (HDL) cholesterol ratioOrdered By: Anuja Brown on 09-01-2024 Cholesterol.total/Marlen sterol in HDL [Mass ratio] 2.81 {ratio} [facility] Serum creatinine measurement (mass/volume)Ordered By: Nico Arce on 09-01-2024 Creatinine [Mass/Vol] 1.38 mg/dL High 0.70-1.20 [facility] Serum globulin measurementOr dered By: Nico Arce on 09-01-2024 Globulin (S) [Mass/Vol] 4.4 g/dL High 2.2-4.2 [facility] Serum glucose measurement (m ass/volume)Ordered By: Nico Arce on 09-01-2024 Glucose [Mass/Vol] 244 mg/dL High 70-99 [facility] Serum or plasma alanine jo otransferase (ALT) measurementOrdered By: Nico Arce on 07-21-2025 ALT [Catalytic activity/Vol] 49 U/L High <35 [facility] Serum or plasma albumin timbo urement (mass/volume)Ordered By: Nico Arce on 09-01-2024 Albumin [Mass/Vol] 5.0 g/dL High 3.4-4.8 [facility] Serum or plasma albumin/glob ulin mass ratioOrdered By: Nico Arce on 09-01-2024 Albumin/Globulin [Mass ratio] 1.1 {ratio} 0.9-2.4 [facility] Serum or plasma alkaline tc sphatase measurementOrdered By: Nico Arce on 09-01-2024 ALP [Catalytic activity/Vol] 166 U/L High 35-104 [facility] Serum or plasma calcium timbo urement (mass/volume)Ordered By: Nico Arce on 09-01-2024 Calcium [Mass/Vol] 11.2 mg/dL High 7.6-11.0 [facility] Serum or plasma cholesterol in HDL measurement (mass/volume)Ordered By: Anuja Brown on 09-01-2024 Cholesterol in HDL [Mass/Vol] 61 mg/dL >40 [facility] Comment on above: National Cholesterol Education Program (NCEP) guidelines:<40 mg/dL: Low HDL-cholesterol (major risk factor for CHD)>= 60 mg/dL: High HDL-cholesterol (negative risk factor for CHD)HDL-cholesterol is affected by a number of factors, e.g. smoking, exercise, hormones, sex and age. Serum or plasma cholesterol measurement (mass/volume)Ordered By: Anuja Brown on 09-01-2024 Cholesterol [Mass/Vol] 170 mg/dL <201 [facility] Comment on above: Cholesterol level, D esirable <200 mg/dLBorderline high cholesterol 200-239 mg/dLHigh cholesterol >=240 mg/dLRecommendations of the NCEP Adult Treatment Panel for the following risk-cutoff thresholds for the [place] population. Serum or plasma creatine kin ase activityOrdered By: Nico Arce on 09-01-2024 CK [Catalytic activity/Vol] 237 U/L High 24-195 [facility] Serum or plasma urea nitroge n measurement (mass/volume)Ordered By: Nico Arce on 09-01-2024 Urea nitrogen [Mass/Vol] 30 mg/dL High 4-19 [facility] Sodium levelOrdered By: Hamlet Arce on 09-01-2024 Sodium [Moles/Vol] 141 mmol/L 133-145 [facility] Squamous epithelial cells de tection in urine sediment by light microscopyOrdered By: Nico Arce on 09-01-2024 Epithelial cells.squamous LM Ql (Urine sed) 5-10 SEEN /hpf 5-10 [facility] TSH DL <= 0.005 mIU/L QnOrde red By: Anuja Brown on 09-01-2024 TSH Qn 1.770 uIU/mL 0.300-4.200 [facility] Thyroid Stim Hormone (TSH)on 09-01-2024 TSH 1.770 uIU/mL Normal 0.300-4.200 [facility] Comment on above: Performed By: #### L 501.9985, L509.1000, L500.4100, L501.9520, L503.0106 ####[facility] [address] [place], [address] Total proteinOrdered By: Talia Arce on 09-01-2024 Protein [Mass/Vol] 9.4 g/dL High 5.9-8.4 [facility] Transitional cells detection in urine sediment by light microscopyOrdered By: Nico Arce on 09-01-2024 Transitional cells LM Ql (Urine sed) 0-5 SEEN /hpf 0-5 [facility] Triglycerides measurementOrd ered By: Anuja Brown on 09-01-2024 Triglyceride [Mass/Vol] 125 mg/dL <199 [facility] Comment on above: The drugs N-Acetylcy steine and Metamizole may falsely depress this assay. Normal range: <150 mg/dLBorderline High: 150-199 mg/dLHigh: 200-499 mg/dLVery High: >500 mg/dL Troponin T.cardiac [Mass/vol ume] in Serum or Plasma by High sensitivity methodOrdered By: Nico Arce on 09-01-2024 Troponin T.cardiac High sensitivity method [Mass/Vol] 25 ng/L High <14 [facility] Troponin T.cardiac High sensitivity method [Mass/Vol] 29 ng/L High <14 [facility] Troponin T.cardiac High sensitivity method [Mass/Vol] 30 ng/L High <14 [facility] Comment on above: Delta: 17 on 5-1459 Urinalysis, Completeon 09-01 BACTERIA 4+ /hpf Normal None Seen [facility] Comment on above: Order Comment: NITA TER SPECIMEN Performed By: #### M 100.2200, L400.0001 ####[facility] [address] [place], [address] EPI,RENAL 5-10 SEEN Normal 0-5 [facility] Comment on above: Order Comment: NITA TER SPECIMEN Performed By: #### M 100.2200, L400.0001 ####[facility] [address] [place], [address] EPI,SQUAMOUS 5-10 SEEN Normal 5-10 [facility] Comment on above: Order Comment: NITA TER SPECIMEN Performed By: #### M 100.2200, L400.0001 ####[facility] [address] [place], [address] EPI,TRANSITION 0-5 SEEN Normal 0-5 [facility] Comment on above: Order Comment: NITA TER SPECIMEN Performed By: #### M 100.2200, L400.0001 ####[facility] [address] [place], [address] RBC 0-5 SEEN Normal 0-5 [facility] Comment on above: Order Comment: NITA TER SPECIMEN Performed By: #### M 100.2200, L400.0001 ####[facility] [address] [place], [address] WBC >100 SEEN Normal 0-5 [facility] Comment on above: Order Comment: NITA TER SPECIMEN Performed By: #### M 100.2200, L400.0001 ####[facility] [address] [place], [address] Mucus Ql (Urine sed) 0 SEEN Normal [facility] Comment on above: Order Comment: [facility] TER SPECIMEN Performed By: #### M 100.2200, L400.0001 ####[facility] [address] [place], [address] Urine clarityOrdered By: Talia Arce on 09-01-2024 Clarity (U) Turbid Clear [facility] Urine color determinationOrd ered By: Nico Arce on 09-01-2024 Color (U) Yellow Yellow [facility] Urine cultureOrdered By: Talia Arce on 09-01-2024 Bacteria identified Cx Nom (U) Citrobacter freundii Abnormal [facility] Urine glucose detectionOrder ed By: Nico Arce on 09-01-2024 Glucose Ql (U) Normal mg/dl Normal [facility] Urine leukocyte esterase det ection by dipstickOrdered By: Nico Arce on 09-01-2024 Leukocyte esterase Test strip Ql (U) 500 /ul High Negative [facility] Urine pHOrdered By: Nico Arce on 09-01-2024 pH (U) 6.0 [pH] 5.0 - 8.0 [facility] Urine sediment bacteria coun t by microscopy (number/high power field)Ordered By: Nico Arce on 09-01-2024 Bacteria LM.HPF (Urine sed) [#/Area] 4 /[HPF] None Seen [facility] Urine sediment renal epithel ial cell count by microscopy (number/high power field)Ordered By: Nico Arce on 09-01-2024 Epithelial cells.renal LM.HPF (Urine sed) [#/Area] 5 /[HPF] 0-5 [facility] Urine specific gravity measu rementOrdered By: Nico Arce on 09-01-2024 Specific gravity (U) [Rel density] 1.015 1.002-1.030 [facility] Urine urobilinogen measureme ntOrdered By: Nico Arce on 09-01-2024 Urobilinogen Ql (U) Normal mg/dl Normal [facility] Venous Blood Gason Blood Gas Type RADHA Normal [facility] Comment on above: Performed By: #### L 9000.0810 ####[facility] [address] [place], [address] CO2 [Moles/Vol] 23 mmol/L Normal 23-33 [facility] Comment on above: Performed By: #### L 9000.0810 ####[facility] [address] [place], [address] HCO3 (Bld) [Moles/Vol] 22 mmol/L Normal 22-26 [facility] Comment on above: Performed By: #### L 9000.0810 ####[facility] [address] [place], [address] O2 Delivery Dev Room Air Normal [facility] Comment on above: Performed By: #### L 9000.0810 ####[facility] [address] [place], [address] SITE Central Line Normal [facility] Comment on above: Performed By: #### L 9000.0810 ####[facility] [address] [place], [address] VBG BE -3 mmol/L Low -1.0-3.5 [facility] Comment on above: Performed By: #### L 9000.0810 ####[facility] [address] [place], [address] VBG pCO2 35.1 mmHg Low 41-51 [facility] Comment on above: Performed By: #### L 9000.0810 ####[facility] [address] [place], [address] VBG pH 7.41 Normal 7.32-7.42 [facility] Comment on above: Performed By: #### L 9000.0810 ####[facility] [address] [place], [address] VBG PO2 54 mmHg High 25-40 [facility] Comment on above: Performed By: #### L 9000.0810 ####[facility] [address] [place], [place], [address] VBG SO2 88 High 50-70 [facility] Comment on above: Performed By: #### L 9000.0810 ####[facility] [address] [place], [place], [address] Venous blood base excess christine surementOrdered By: Anuja Brown on 09-01-2024 Base excess Calc (BldV) [Moles/Vol] -3 mmol/L Low -1.0-3.5 [facility] Venous blood bicarbonate christine surementOrdered By: Anuja Brown on 09-01-2024 HCO3 (Bld) [Moles/Vol] 22 mmol/L 22-26 [facility] Venous blood oxygen saturati on measurementOrdered By: Anuja Brown on 09-01-2024 Oxygen saturation in Blood 88 % High 50-70 [facility] Venous blood pH measurementO rdered By: Anuja Brown on 09-01-2024 pH (BldV) 7.41 [pH] 7.32-7.42 [facility] Venous blood partial pressur e of carbon dioxide measurementOrdered By: Anuja Brown on 09-01-2024 CO2 (BldV) [Partial pressure] 35.1 mm[Hg] Low 41-51 [facility] Venous blood partial pressur e of oxygen measurementOrdered By: Anuja Brown on 09-01-2024 Oxygen (BldV) [Partial pressure] 54 mm[Hg] High 25-40 [facility] Vitamin B12on 09-01-2024 Cobalamin (Vitamin B12) [Mass/Vol] 530 pg/mL Normal 180-914 [facility] Comment on above: Performed By: #### L 501.9985, L509.1000, L500.4100, L501.9520, L503.0106 ####[facility] [address] [place], [address] Vitamin B12 ser/plasOrdered By: Anuja Brown on 09-01-2024 Cobalamin (Vitamin B12) [Mass/Vol] 530 pg/mL 180-914 [facility] White blood cell (WBC) count Ordered By: Nico Claude on 09-01-2024 WBC (Bld) [#/Vol] 23.7 10*3/uL High 4.4-11.0 [facility] White blood cell countOrdere d By: Nico Arce on 09-01-2024 White blood cell count >100 SEEN /hpf 0-5 [facility] CNOVon 08-11-2024 CNOV Office Visit (ENWSTR ) ----- DONNA MARSH ([id number]) 1955 F Date Time Provider Department 08/11/24 10:00 AM JEROMY LAI ENWSTR During your visit today, we recorded the following information about you: Temperature Pulse Respiration Blood pressure 97.5 degrees 70/minute 12/minute 118/72 Weight 65.5 kg Jeromy Lai MD 08/11/2024 5:40 PM Signed Endocrinology and Metabolism [place] [facility] Visit Note NAME: Donna Marsh is a 68 year old old female PCP: Rudy Boyer NP Requesting Provider: Regina Oden MD [address] [facility] [address] My final recommendations will be communicated back [...] hip in 2023 Height loss: lost from 5'8.5" to 5'3" Kidney stones: no Weight change: lost weight due to not eating at the rehab, reports she has been eating better since being back home on last History of corticosteroid use: short duration for respiratory issues History of malabsorption: no known history History of certain medication use: eliquis for few (5-6) years for Broken heart syndrome" Current or recent tobacco use: 16 to 31 years, 1 pack per week Caffeine intake: Drinks tea daily; has weaned off Pepsi and now consumes [employer] iced tea. Alcohol use: no Use of [...] follows with DR. LINDSEY Morbid obesity ([facility]) since quit smoking Osteopenia [...] mesh TONSILLECTO (more content not included)... Normal [facility] CBC W Auto Differential pane l (Bld)on 06-20-2024 Basophils (Bld) [#/Vol] 10*3/uL Normal <0.11 [facility] Comment on above: Order Comment: Speci men Type: URINE SPECIMEN Ordering Facility: [facility] Address: [address] [place] [address] Performed By: #### U RMPA #### [facility] CLIA [id number] [address] [place] [address] [place] Basophils/100 WBC (Bld) 0.3 % Normal [facility] Comment on above: Order Comment: Speci men Type: URINE SPECIMEN Ordering Facility: [facility] Address: [address] [place] [address] Performed By: #### U RMPA #### [facility] CLIA [id number] [address] [place] [address] [place] Differential cell count method Nom (Bld) Auto Normal [facility] Comment on above: Order Comment: Speci men Type: URINE SPECIMEN Ordering Facility: [facility] Address: [address] [place] [address] Performed By: #### U RMPA #### [facility] CLIA [id number] [address] [place] [address] [place] Eosinophils (Bld) [#/Vol] 0.21 10*3/uL Normal <0.46 [facility] Comment on above: Order Comment: Speci men Type: URINE SPECIMEN Ordering Facility: [facility] Address: [address] [place] [address] Performed By: #### U RMPA #### [facility] CLIA [id number] [address] [place] [address] [place] Eosinophils/100 WBC (Bld) 2.7 % Normal [facility] Comment on above: Order Comment: Speci men Type: URINE SPECIMEN Ordering Facility: [facility] Address: [address] [place] [address] Performed By: #### U RMPA #### [facility] CLIA [id number] [address] [place] [address] [place] Erythrocyte distribution width (RBC) [Ratio] 13.4 % Normal 11.5-15.0 [facility] Comment on above: Order Comment: Speci men Type: URINE SPECIMEN Ordering Facility: [facility] Address: [address] [place] [address] Performed By: #### U RMPA #### [facility] CLIA [id number] [address] [place] [address] [place] Hematocrit (Bld) [Volume fraction] 38.4 % Normal 36.0-46.0 [facility] Comment on above: Order Comment: Speci men Type: URINE SPECIMEN Ordering Facility: [facility] Address: [address] [place] [address] Performed By: #### U RMPA #### [facility] CLIA [id number] [address] [place] [address] [place] Hemoglobin (Bld) [Mass/Vol] 12.3 g/dL Normal 11.5-15.5 [facility] Comment on above: Order Comment: Speci men Type: URINE SPECIMEN Ordering Facility: [facility] Address: [address] [place] [address] Performed By: #### U RMPA #### [facility] CLIA [id number] [address] [place] [address] [place] Immature granulocytes (Bld) [#/Vol] 10*3/uL Normal <0.10 [facility] Comment on above: Order Comment: Speci men Type: URINE SPECIMEN Ordering Facility: [facility] Address: [address] [place] [address] Performed By: #### U RMPA #### [facility] CLIA [id number] [address] [place] [address] [place] Immature granulocytes/100 WBC (Bld) 0.1 % Normal [facility] Comment on above: Order Comment: Speci men Type: URINE SPECIMEN Ordering Facility: [facility] Address: [address] [place] [address] Performed By: #### U RMPA #### [facility] CLIA [id number] [address] [place] [address] [place] Lymphocytes (Bld) [#/Vol] 2.37 10*3/uL Normal 1.00-4.00 [facility] Comment on above: Order Comment: Speci men Type: URINE SPECIMEN Ordering Facility: [facility] Address: [address] [place] [address] Performed By: #### U RMPA #### [facility] CLIA [id number] [address] [place] [address] [place] Lymphocytes/100 WBC (Bld) 31.0 % Normal [facility] Comment on above: Order Comment: Speci men Type: URINE SPECIMEN Ordering Facility: [facility] Address: [address] [place] [address] Performed By: #### U RMPA #### [facility] CLIA [id number] [address] [place] [address] [place] MCH (RBC) [Entitic mass] 29.6 pg Normal 26.0-34.0 [facility] Comment on above: Order Comment: Speci men Type: URINE SPECIMEN Ordering Facility: [facility] Address: [address] [place] [address] Performed By: #### U RMPA #### [facility] CLIA [id number] [address] [place] [address] [place] MCHC (RBC) [Mass/Vol] 32.0 g/dL Normal 30.5-36.0 [facility] Comment on above: Order Comment: Speci men Type: URINE SPECIMEN Ordering Facility: [facility] Address: [address] [place] [address] Performed By: #### U RMPA #### [facility] CLIA [id number] [address] [place] [address] [place] MCV (RBC) [Entitic vol] 92.5 fL Normal 80.0-100.0 [facility] Comment on above: Order Comment: Speci men Type: URINE SPECIMEN Ordering Facility: [facility] Address: [address] [place] [address] Performed By: #### U RMPA #### [facility] CLIA [id number] [address] [place] [address] [place] Monocytes (Bld) [#/Vol] 0.58 10*3/uL Normal <0.87 [facility] Comment on above: Order Comment: Speci men Type: URINE SPECIMEN Ordering Facility: [facility] Address: [address] [place] [address] Performed By: #### U RMPA #### [facility] CLIA [id number] [address] [place] [address] [place] Monocytes/100 WBC (Bld) 7.6 % Normal [facility] Comment on above: Order Comment: Speci men Type: URINE SPECIMEN Ordering Facility: [facility] Address: [address] [place] [address] Performed By: #### U RMPA #### [facility] CLIA [id number] [address] [place] [address] [place] Neutrophils (Bld) [#/Vol] 4.45 10*3/uL Normal 1.45-7.50 [facility] Comment on above: Order Comment: Speci men Type: URINE SPECIMEN Ordering Facility: [facility] Address: [address] [place] [address] Performed By: #### U RMPA #### [facility] CLIA [id number] [address] [place] [address] [place] Neutrophils/100 WBC (Bld) 58.3 % Normal [facility] Comment on above: Order Comment: Speci men Type: URINE SPECIMEN Ordering Facility: [facility] Address: [address] [place] [address] Performed By: #### U RMPA #### [facility] CLIA [id number] [address] [place] [address] [place] Nucleated RBC (Bld) [#/Vol] 10*3/uL Normal <0.01 [facility] Comment on above: Order Comment: Speci men Type: URINE SPECIMEN Ordering Facility: [facility] Address: [address] [place] [address] Performed By: #### U RMPA #### [facility] CLIA [id number] [address] [place] [address] [place] Nucleated RBC/100 WBC (Bld) [Ratio] 0.0 /100 WBC Normal [facility] Comment on above: Order Comment: Speci men Type: URINE SPECIMEN Ordering Facility: [facility] Address: [address] [place] [address] Performed By: #### U RMPA #### [facility] CLIA [id number] [address] [place] [address] [place] Platelet mean volume (Bld) [Entitic vol] 9.1 fL Normal 9.0-12.7 [facility] Comment on above: Order Comment: Speci men Type: URINE SPECIMEN Ordering Facility: [facility] Address: [address] [place] [address] Performed By: #### U RMPA #### [facility] CLIA [id number] [address] [place] [address] [place] Platelets (Bld) [#/Vol] 271 10*3/uL Normal 150-400 [facility] Comment on above: Order Comment: Speci men Type: URINE SPECIMEN Ordering Facility: [facility] Address: [address] [place] [address] Performed By: #### U RMPA #### [facility] CLIA [id number] [address] [place] [address] [place] RBC (Bld) [#/Vol] 4.15 10*6/uL Normal 3.90-5.20 [facility] Comment on above: Order Comment: Speci men Type: URINE SPECIMEN Ordering Facility: [facility] Address: [address] [place] [address] Performed By: #### U RMPA #### [facility] CLIA [id number] [address] [place] [address] [place] WBC (Bld) [#/Vol] 7.64 10*3/uL Normal 3.70-11.00 [facility] Comment on above: Order Comment: Speci men Type: URINE SPECIMEN Ordering Facility: [facility] Address: [address] [place] [address] Performed By: #### U [facility] #### [facility] CLIA [id number] [address] [place] [address] [place] [id number] [place] [facility] CNOVSPon 06-20-2024 CNOVSP Visit (SP) Office (HEMAWS) ----- DONNA MARSH ([id number]) 1955 F Date Time Provider Department 06/20/24 [...] cholesterol, irritable bowel, migraine, CAD (non-ST elevation [place] 01/06/2018), psoriatic arthritis, sleep apnea, osteoporosis, Takotsubo syndrome and type 2 diabetes. Patient was admitted to [facility] on 08/05/2022 following a mechanical fall [...] by Gallito Crisostomo MD on 08/13/[address]/Chest without Contrast IMPRESSION: Cardiomegaly with pulmonary [...] normal. The (more content not included)... Normal [facility] FLOW CYTOMETRY FOR LEUKEMIA/ LYMPHOMA (FCLL) PERFORMABLEon 06-20-2024 FLOW CYTOMETRY ORDER STATUS Results will be reported under F case ID when completed Normal [facility] Comment on above: Order Comment: Jeff gill Type: BLOOD SPECIMEN Ordering Facility: [facility] Address: [address] [place] [address] Performed By: #### F CLLP #### [facility] CLIA [id number] [address] [place] [address] FLOW CYTOMETRY FOR LEUKEMIA/ LYMPHOMA (FCLL) REFLEXon 06-20-2024 DIAGNOSIS COMMENT Normal [facility] Comment on above: Order Comment: Jeff gill Type: BLOOD SPECIMEN Ordering Facility: [facility] Address: [address] [place] [address] Result Comment: This test was developed and its performance characteristics determined by [facility]'s Prem [facility] [place] ([facility]). It has not been cleared or approved by the FDA. [facility] is regulated under CLIA as qualified to perform high-complexity testing. This test is used for clinical purposes. It should not be regarded as investigational or for research. Performed By: #### F CLLRFLX #### [facility] CLIA [id number] [address] [place] [address] STATES [place] [facility] FINAL PERFORMING LAB Normal [facility] Comment on above: Order Comment: Speci men Type: BLOOD SPECIMEN Ordering Facility: [facility] Address: [address] [place] [address] Result Comment: Diag nostic interpretation performed at [facility], [address] [place] [address] CLIA# [id number] Inbound Customer Service Agent: Johnny Brito M.D. Performed By: #### F CLLRFLX #### [facility] CLIA [id number] [address] [place], [place] [address]K [address] OF [facility] FLOW CYTOMETRY RESULTS Normal [facility] Comment on above: Order Comment: Speci men Type: BLOOD SPECIMEN Ordering Facility: [facility] Address: [address] [place] [address] Result Comment: Spec imen type: Peripheral blood [...] 06/26/2024 Performed By: #### F CLLRFLX #### [facility] IA [id number] [address] [place] [address] [place] GROSS DESCRIPTION A. Blood Normal [facility] Comment on above: Order Comment: Jeff gill Type: BLOOD SPECIMEN Ordering Facility: [facility] Address: [address] [place] [address] Result Comment: RECE IVED 8 MLS PERIPHERAL BLOOD (TOTAL) IN TWO EDTA TUBES Performed By: #### F CLLRFLX #### [facility] CLIA [id number] [address] [place] [address] [place] INTERPRETATION Normal [facility] Comment on above: Order Comment: Jeff gill Type: BLOOD SPECIMEN Ordering Facility: [facility] Address: [address] [place] [address] Result Comment: The findings show an immunophenotypically [...] EDT Performed By: #### F CLLRFLX #### [facility] CLIA [id number] [address] [place] [address] [place] IMMUNOFIXATION SCREEN, SERUM on 06-20-2024 MPA RESULT No M protein is identified. Normal No M protein is identified. [facility] Comment on above: Order Comment: Speci men Type: URINE SPECIMEN Ordering Facility: [facility] Address: [address] [place] [address] Performed By: #### U RMPA #### [facility] CLIA [id number] [address] [place] [address] [place] STAFF REVIEW (MPA) Reviewed by Yayo Babb M.D. Normal [facility] Comment on above: Order Comment: Speci men Type: URINE SPECIMEN Ordering Facility: [facility] Address: [address] [place] [address] Performed By: #### U RMPA #### [facility] CLIA [id number] [address] [place], [place] [address] [place] IMMUNOGLOBULINS,IGG,IGA,IGMo n 06-20-2024 IgA [Mass/Vol] 302 mg/dL Normal 70-400 [facility] Comment on above: Order Comment: Speci men Type: URINE SPECIMEN Ordering Facility: [facility] Address: [address] [place] [address] Performed By: #### U RMPA #### [facility] CLIA [id number] [address] [place] [address] [place] IgG [Mass/Vol] 1134 mg/dL Normal 700-1600 [facility] Comment on above: Order Comment: Speci men Type: URINE SPECIMEN Ordering Facility: [facility] Address: [address] [place] [address] Performed By: #### U RMPA #### [facility] CLIA [id number] [address] [place] [address] [place] IgM [Mass/Vol] 89 mg/dL Normal 40-230 [facility] Comment on above: Order Comment: Speci men Type: URINE SPECIMEN Ordering Facility: [facility] Address: [address] [place] [address] Performed By: #### U RMPA #### [facility] CLIA [id number] [address] [place] [address] [place] Immunodeficiency panel FC (B ld)on 06-20-2024 CD3 cells (Bld) [#/Vol] 1833 cells/uL Normal 958-2388 [facility] Comment on above: Order Comment: Speci men Type: BLOOD SPECIMEN Ordering Facility: [facility] Address: [address] [place] [address] Performed By: #### 4 5268-0 #### [facility] CLIA [id number] [address] [place] [address] [place] CD3 cells/100 cells (Bld) 79 % Normal 60-89 [facility] Comment on above: Order Comment: Speci men Type: BLOOD SPECIMEN Ordering Facility: [facility] Address: [address] [place] [address] Performed By: #### 4 5268-0 #### [facility] CLIA [id number] [address] [place] [id number] [place] CD3+CD4+ (T4 helper) cells (Bld) [#/Vol] 1298 cells/uL Normal 533-1674 [facility] Comment on above: Order Comment: Speci men Type: BLOOD SPECIMEN Ordering Facility: [facility] Address: [address] [place] [address] Performed By: #### 4 5268-0 #### [facility] CLIA [id number] [address] [place] [address] [place] CD3+CD4+ (T4 helper) cells/100 cells (Bld) 56 % Normal 34-61 [facility] Comment on above: Order Comment: Speci men Type: BLOOD SPECIMEN Ordering Facility: [facility] Address: [address] [place] [address] Performed By: #### 4 5268-0 #### [facility] CLIA [id number] [address] [place] [address] [place] CD3+CD4+ (T4 helper) cells/CD3+CD8+ (T8 suppressor cells) cells (Bld) [# ratio] 2.49 % Normal 1.10-3.25 [facility] Comment on above: Order Comment: Speci men Type: BLOOD SPECIMEN Ordering Facility: [facility] Address: [address] [place] [address] Performed By: #### 4 5268-0 #### [facility] CLIA [id number] [address] [place], [place] [id number] [place] CD3+CD8+ (T8 suppressor cells) cells (Bld) [#/Vol] 522 cells/uL Normal 175-958 [facility] Comment on above: Order Comment: Speci men Type: BLOOD SPECIMEN Ordering Facility: [facility] Address: [address] [place] [address] Performed By: #### 4 5268-0 #### [facility] CLIA [id number] [address] [place] [address] [place] CD3+CD8+ (T8 suppressor cells) cells/100 cells (Bld) 22 % Normal 10-41 [facility] Comment on above: Order Comment: Speci men Type: BLOOD SPECIMEN Ordering Facility: [facility] Address: [address] [place] [address] Performed By: #### 4 5268-0 #### [facility] CLIA [id number] [address] [place] [address] [place] CD3-CD16+CD56+ (Natural killer) cells (Bld) [#/Vol] 232 cells/uL Normal 102-565 [facility] Comment on above: Order Comment: Speci men Type: BLOOD SPECIMEN Ordering Facility: [facility] Address: [address] [place] [address] Performed By: #### 4 5268-0 #### [facility] CLIA [id number] [address] [place] [address] [place] CD3-CD16+CD56+ (Natural killer) cells/100 cells (Bld) 10 % Normal 5-25 [facility] Comment on above: Order Comment: Speci men Type: BLOOD SPECIMEN Ordering Facility: [facility] Address: [address] [place] [address] Performed By: #### 4 5268-0 #### [facility] CLIA [id number] [address] [place] [address] [place] CD3-CD19+ cells (Bld) [#/Vol] 268 cells/uL Normal 75-660 [facility] Comment on above: Order Comment: Speci men Type: BLOOD SPECIMEN Ordering Facility: [facility] Address: [address] [place] [address] Performed By: #### 4 5268-0 #### [facility] CLIA [id number] [address] [place] [address] [place] CD3-CD19+ cells/100 cells (Bld) 11 % Normal 5-22 [facility] Comment on above: Order Comment: Speci men Type: BLOOD SPECIMEN Ordering Facility: [facility] Address: [address] [place] [address] Performed By: #### 4 5268-0 #### [facility] CLIA [id number] [address] [place] [address] [place],FREE,SERon 2024 Immunoglobulin light chains.kappa.free (S) [Mass/Vol] 30.2 mg/L High 3.3-19.4 [facility] Comment on above: Order Comment: Speci men Type: URINE SPECIMEN Ordering Facility: [facility] Address: [address] [place] [address] Result Comment: Rare ly, increased serum free light chains levels may not be detected or accurately quantified due to prozone phenomenon or in high viscosity samples using this immunoturbidimetric assay. Correlation with other laboratory results and clinical findings is recommended. The Alpine Free Light Chain was performed using the Binding Site Optilite immunoturbidimetric method. Result obtained with different assay methods or kits cannot be used interchangeably. Performed By: #### U RMPA #### [facility] CLIA [id number] [address] [place] [address] [place] Immunoglobulin light chains.kappa/Immunoglob ulin light chains.lambda (S) [Mass ratio] 1.27 Normal 0.26-1.65 [facility] Comment on above: Order Comment: Speci men Type: URINE SPECIMEN Ordering Facility: [facility] Address: [address] [place] [address] Performed By: #### U RMPA #### [facility] CLIA [id number] [address] [place] [address] [place] Immunoglobulin light chains.lambda.free [Mass/Vol] 23.7 mg/L Normal 5.7-26.3 [facility] Comment on above: Order Comment: Speci men Type: URINE SPECIMEN Ordering Facility: [facility] Address: [address] [place] [address] Result Comment: Rare ly, increased serum free [...] cannot be used interchangeably. Performed By: #### U RMPA #### [facility] CLIA [id number] [address] [place] [address] [place] MONOCLONAL PROT UR W/INTERPo n 06-20-2024 STAFF REVIEW ([place]) Reviewed by Yayo Babb M.D. Normal [facility] Comment on above: Order Comment: Speci men Type: URINE SPECIMEN Ordering Facility: [facility] Address: [address] [place] [address] Performed By: #### U RMPA #### [facility] [facility] CLIA [id number] [address] [place] [address] [place] UMPA RESULT No M protein is identified. Normal No M protein is identified. [facility] Comment on above: Order Comment: Speci men Type: URINE SPECIMEN Ordering Facility: [facility] Address: [address] [place] [address] Performed By: #### U RMPA #### [facility] CLIA [id number] [address] [place] [address] [place] PROTEIN ELECTROPHORESIS SERU M (P)on 06-20-2024 Albumin [Mass/Vol] 4.01 g/dL Normal 3.43-5.41 [facility] Comment on above: Order Comment: Speci men Type: URINE SPECIMEN Ordering Facility: [facility] Address: [address] [place] [address] Performed By: #### U RMPA #### [facility] CLIA [id number] [address] [place] [address] [place] Alpha 1 globulin Elph [Mass/Vol] 0.33 g/dL Normal 0.18-0.43 [facility] Comment on above: Order Comment: Speci men Type: URINE SPECIMEN Ordering Facility: [facility] Address: [address] [place] [address] Performed By: #### U RMPA #### [facility] CLIA [id number] [address] [place] [address] [place] Alpha 2 globulin Elph [Mass/Vol] 0.68 g/dL Normal 0.42-0.98 [facility] Comment on above: Order Comment: Speci men Type: URINE SPECIMEN Ordering Facility: [facility] Address: [address] [place] [address] Performed By: #### U RMPA #### [facility] CLIA [id number] [address] [place] [address] [place] Beta globulin Elph [Mass/Vol] 0.85 g/dL Normal 0.61-1.17 [facility] Comment on above: Order Comment: Speci men Type: URINE SPECIMEN Ordering Facility: [facility] Address: [address] [place] [address] Performed By: #### U RMPA #### [facility] CLIA [id number] [address] [place] [address] [place] Gamma globulin Elph [Mass/Vol] 1.02 g/dL Normal 0.53-1.51 [facility] Comment on above: Order Comment: Speci men Type: URINE SPECIMEN Ordering Facility: [facility] Address: [address] [place] [address] Performed By: #### U RMPA #### [facility] CLIA [id number] [address] [place] [address] [place] M-PROTEIN LOCATION Normal [facility] Comment on above: Order Comment: Speci men Type: URINE SPECIMEN Ordering Facility: [facility] Address: [address] [place] [address] Result Comment: Not Applicable. Performed By: #### U RMPA #### [facility] CLIA [id number] [address] [place] [address] [place] Protein Fractions [Interp] No definitive M protein is identified on protein electrophoresis. Normal No definitive M protein is identified on protein electrophor esis. [facility] Comment on above: Order Comment: Speci men Type: URINE SPECIMEN Ordering Facility: [facility] Address: [address] [place] [address] Performed By: #### U RMPA #### [facility] CLIA [id number] [address] [place] [address] [place] Protein.monoclonal Elph [Mass/Vol] 0.00 g/dL Normal <=0.00 [facility] Comment on above: Order Comment: Speci men Type: URINE SPECIMEN Ordering Facility: [facility] Address: [address] [place] [address] Performed By: #### U RMPA #### [facility] CLIA [id number] [address] [place] [address] [place] SPE STAFF REVIEW Reviewed by Yayo Babb M.D. Normal [facility] Comment on above: Order Comment: Speci men Type: URINE SPECIMEN Ordering Facility: [facility] Address: [address] [place] [address] Performed By: #### U RMPA #### [facility] CLIA [id number] [address] [place] [address] [place] Prot SerPl-mCncon 06-20-2024 Protein [Mass/Vol] 6.9 g/dL Normal 6.3-8.0 [facility] Comment on above: Order Comment: Speci men Type: BLOOD SPECIMEN Ordering Facility: [facility] Address: [address] [place] [address] Performed By: #### 2 885-2 #### [facility] IA [id number] [address] [place] [address] [place] Prot Ur-mCncon 06-20-2024 Protein (U) [Mass/Vol] 25 mg/dL High 0-20 [facility] Comment on above: Order Comment: Speci men Type: URINE SPECIMEN Ordering Facility: [facility] Address: [address] [place] [address] Performed By: #### U RMPA #### [facility] CLIA [id number] [address] [place] [address] [place] URINE PROTEIN ELECTROPHORESI S RANDOM (P)on 06-20-2024 Albumin Elph (U) [Mass fraction] 46.23 % Normal [facility] Comment on above: Order Comment: Speci men Type: URINE SPECIMEN Ordering Facility: [facility] Address: [address] [place] [address] Performed By: #### L [id number] #### [facility] CLIA [id number] [address] [place] [address] [place] Alpha 1 globulin Elph (U) [Mass fraction] 4.64 % Normal [facility] Comment on above: Order Comment: Speci men Type: URINE SPECIMEN Ordering Facility: [facility] Address: [address] [place] [address] Performed By: #### L [id number] #### [facility] CLIA [id number] [address] [place] [address] [place] Alpha 2 globulin Elph (U) [Mass fraction] 15.66 % Normal [facility] Comment on above: Order Comment: Speci men Type: URINE SPECIMEN Ordering Facility: [facility] Address: [address] [place] [address] Performed By: #### L [id number] #### [facility] CLIA [id number] [address] [place] [address] [place] Beta globulin Elph (U) [Mass fraction] 19.44 % Normal [facility] Comment on above: Order Comment: Speci men Type: URINE SPECIMEN Ordering Facility: [facility] Address: [address] [place] [address] Performed By: #### L [id number] #### [facility] IA [id number] [address] [place] [address] STATES [facility] Gamma globulin Elph (U) [Mass fraction] 14.02 % Normal [facility] Comment on above: Order Comment: Speci men Type: URINE SPECIMEN Ordering Facility: [facility] Address: [address] [place] [address] Performed By: #### L [id number] #### [facility] IA [id number] [address] [place] [address] [place] Protein Fractions Elph Minesh (U) [Interp] No definitive M protein is identified on protein electrophoresis. Normal No definitive M protein is identified on protein electrophor esis. [facility] Comment on above: Order Comment: Speci men Type: URINE SPECIMEN Ordering Facility: [facility] Address: [address] [place] [address] Performed By: #### L [id number] #### [facility] IA [id number] [address] [place] [address] OF [place] STAFF REVIEW (URINE ELECTRO) Reviewed by Yayo Babb M.D. Normal [facility] Comment on above: Order Comment: Speci men Type: URINE SPECIMEN Ordering Facility: [facility] Address: [address] [place] [address] Performed By: #### L [id number] #### [facility] IA [id number] [address] [place] [address] OF [place] Jamir 05-29-2024 RULA Telephone (ISELA) ----- DONNA MARSH ([id number]) 1955 F Date Time Provider Department 05/29/24 REGINA ODEN During your visit today, we recorded the following information about you: Daksha Tang 05/29/2024 3:05 PM Signed [facility] called stating that patient is back with them at this time. She is asking if patient needed a follow up with Dr. Oden. Patient was here in 2022. Please call Jeannie at [phone] Katalina You LPN 05/29/2024 3:46 PM Signed Called [facility] was placed on hold. Sent fax to nurses telling them we saw patient once in 2022 (then twice in 2009 prior for a different diagnosis). I asked them if there was a reason they thought she needed to be seen. Will await communication back from [facility]. NURY Cervantes Melanie, LPN 06/10/2024 9:38 AM [...] AM Addendum PSS- please contact [facility] [phone] to get patient scheduled for an est complex OV with Dr. Oden. Will also need a lab appointment for a CBC prior to OV that same day. NURY Shaw Angela 06/10/2024 12:32 PM Signed Spoke with [facility] and scheduled lab and est complex ov Daksha Morales 06/16/2024 1:52 PM Signed DaughterJoo called asking if appointment is necessary and if patient is needing to be seen at main, can we just put in referral. She would like to speak with clinical. Cristina Graham LPN 06/16/2024 2:23 PM Signed PSS- I spoke with patient's daughter. Daughter would like to make sure the patient's insurance will cover the OV here. NURY hSaw Naomi 06/16/2024 2:33 PM Signed Yes it [...] - aspirin, (more content not included)... Normal [facility] Gastroenterology Visit Repor ton 05-29-2024 Gastroenterology Visit Report Normal [facility] Emergency Department Summary on 05-19-2024 Emergency Department Summary Normal [facility] Spine Lumbar without Contras ton 05-19-2024 Spine Lumbar without Contrast Normal [facility] Absolute lymphocyte countOrd ered By: Anuja Murcia on 05-17-2024 Lymphocytes Auto (Unsp spec) [#/Vol] 2.47 10*3/uL 0.83-4.51 [facility] Absolute neutrophil countOrd ered By: Anuja Murcia on 05-17-2024 Neutrophils (Bld) [#/Vol] 9.3 10*3/uL High 2.0-7.7 [facility] Absolute neutrophil count 9.3 X10^3/uL High 2.0-7.7 [facility] Anion gap [Moles/Vol]Ordered By: Anuja Murcia on 05-17-2024 Anion gap in Serum or Plasma 13 5-15 [facility] Anion gap in Serum or Plasma Ordered By: Anuja Murcia on 05-17-2024 Anion gap [Moles/Vol] 13 mmol/L 5-15 [facility] Automated lymphocyte count a s percentage of total leukocytesOrdered By: Anuja Murcia on 05-17-2024 Lymphocytes/100 WBC Auto (Unsp spec) 19.1 % - [facility] BUN/creatinine ratioOrdered By: Anuja Murcia on 05-17-2024 Urea nitrogen/Creatinine [Mass ratio] 18.8 mg/mg - [facility] BUN/creatinine ratio 18.8 RATIO - [facility] Basic Metabolic Profile (BMP )on 05-17-2024 BUN/CRE 18.8 RATIO Normal - [facility] Comment on above: Performed By: #### L 100.0100, L500.2500 ####[facility] [address] [place], [address] Calcium [Mass/Vol] 8.8 mg/dL Normal 7.6-11.0 [facility] Comment on above: Performed By: #### L 100.0100, L500.2500 ####[facility] [address] [place], [address] Chloride [Moles/Vol] 105 mmol/L Normal 98-108 [facility] Comment on above: Performed By: #### L 100.0100, L500.2500 ####[facility] [address] [place], [address] CO2 [Moles/Vol] 19.8 mmol/L Low 21.0-32.0 [facility] Comment on above: Performed By: #### L 100.0100, L500.2500 ####[facility] [address] [place], [address] Creatinine [Mass/Vol] 1.13 mg/dL Normal 0.70-1.20 [facility] Comment on above: Performed By: #### L 100.0100, L500.2500 ####[facility] [address] [place], [address] ECRCL 43.85 ml/min Low 50-250 [facility] Comment on above: Performed By: #### L 100.0100, L500.2500 ####[facility] [address] [place], [address] GAP 13 Normal 5-15 [facility] Comment on above: Performed By: #### L 100.0100, L500.2500 ####[facility] [address] [place], [address] GFR/1.73 sq M.predicted among non-blacks MDRD (S/P/Bld) [Vol rate/Area] 52 mL/min/{1.73_m2} Low >60 [facility] Comment on above: Result Comment: mL/m in/1.73m2 CKD-EPI Creatinine Equation (2020) Performed By: #### L 100.0100, L500.2500 ####[facility] [address] [place], [address] Glucose [Mass/Vol] 229 mg/dL High 70-99 [facility] Comment on above: Performed By: #### L 100.0100, L500.2500 ####[facility] [address] [place], [address] Potassium [Moles/Vol] 4.1 mmol/L Normal 3.3-5.1 [facility] Comment on above: Performed By: #### L 100.0100, L500.2500 ####[facility] [address] [place], [address] Sodium [Moles/Vol] 138 mmol/L Normal 133-145 [facility] Comment on above: Performed By: #### L 100.0100, L500.2500 ####[facility] [address] [place], [address] Urea nitrogen [Mass/Vol] 21 mg/dL High 4-19 [facility] Comment on above: Performed By: #### L 100.0100, L500.2500 ####[facility] [address] [place], [address] Basophil percentageOrdered B y: Anuja Murcia on 05-17-2024 Basophils/100 WBC (Bld) 0.2 % 0-1 [facility] Basophil percentage 0.2 % 0-1 [facility] Bedside Glucoseon 05-17-2024 FINGERSTICK GLU 199 mg/dL High 74-106 [facility] Comment on above: Result Comment: GERALDO GEMENT OF PATIENT CARE PER NURSING PROTOCOL Performed By: #### L 501.080 ####[facility] [address] [place], [address] FINGERSTICK GLU 190 mg/dL High 74-106 [facility] Comment on above: Result Comment: GERALDO GEMENT OF PATIENT CARE PER NURSING PROTOCOL Performed By: #### L 501.080 ####[facility] [address] [place], [address] CBC W/Diff, Automatedon 04 Absolute Lymph 2.47 X10 3/uL Normal 0.83-4.51 [facility] Comment on above: Performed By: #### L 100.0100, L500.2500 ####[facility] [address] [place], [address] Absolute Neut 9.3 X10 3/uL High 2.0-7.7 [facility] Comment on above: Performed By: #### L 100.0100, L500.2500 ####[facility] [address] [place], [address] Basophils/100 WBC (Bld) 0.2 % Normal 0-1 [facility] Comment on above: Performed By: #### L 100.0100, L500.2500 ####[facility] [address] [place], [address] Eosinophils/100 WBC (Bld) 0.7 % Normal 0-5 [facility] Comment on above: Performed By: #### L 100.0100, L500.2500 ####[facility] [address] [place], [address] Erythrocyte distribution width (RBC) [Ratio] 13.9 % Normal 11.6-14.6 [facility] Comment on above: Performed By: #### L 100.0100, L500.2500 ####[facility] [address] [place], [address] Hematocrit (Bld) [Volume fraction] 36.3 % Low 37-47 [facility] Comment on above: Performed By: #### L 100.0100, L500.2500 ####[facility] [address] [place], [address] Hemoglobin (Bld) [Mass/Vol] 11.9 g/dL Low 12.0-15.0 [facility] Comment on above: Performed By: #### L 100.0100, L500.2500 ####[facility] [address] [place], [address] IG% 0.300 Normal 0.0-0.9 [facility] Comment on above: Result Comment: IG% - Immature Granulocytes (promyelocytes, myelocytes andmetamyelocytes) > 1% indicates that a LEFT SHIFT is Present. Performed By: #### L 100.0100, L500.2500 ####[facility] [address] [place], [address] Lymphocytes/100 WBC (Bld) 19.1 % Normal 19-41 [facility] Comment on above: Performed By: #### L 100.0100, L500.2500 ####[facility] [address] [place], [address] MCH (RBC) [Entitic mass] 29.2 pg Normal 27.0-32.0 [facility] Comment on above: Performed By: #### L 100.0100, L500.2500 ####[facility] [address] [place], [address] MCHC (RBC) [Mass/Vol] 32.8 g/dL Normal 32-36 [facility] Comment on above: Performed By: #### L 100.0100, L500.2500 ####[facility] [address] [place], [address] MCV (RBC) [Entitic vol] 89.0 fL Normal 81-99 [facility] Comment on above: Performed By: #### L 100.0100, L500.2500 ####[facility] [address] [place], [address] Monocytes/100 WBC (Bld) 8.0 % Normal 0-10 [facility] Comment on above: Performed By: #### L 100.0100, L500.2500 ####[facility] [address] [place], [address] Neutrophils/100 WBC (Bld) 71.7 % High 47-70 [facility] Comment on above: Performed By: #### L 100.0100, L500.2500 ####[facility] [address] [place], [address] Nucleated RBC (Bld) [#/Vol] 0 10*3/uL Normal 0-5 [facility] Comment on above: Performed By: #### L 100.0100, L500.2500 ####[facility] [address] [place], [address] Platelet mean volume (Bld) [Entitic vol] 10.1 fL Normal 6.2-12.0 [facility] Comment on above: Performed By: #### L 100.0100, L500.2500 ####[facility] [address] [place], [address] Platelets (Bld) [#/Vol] 249 10*3/uL Normal 150-450 [facility] Comment on above: Performed By: #### L 100.0100, L500.2500 ####[facility] [address] [place], [address] RBC (Bld) [#/Vol] 4.08 10*6/uL Low 4.2-5.4 [facility] Comment on above: Performed By: #### L 100.0100, L500.2500 ####[facility] [address] [place], [address] RDW SD 45.0 fl High 35.1-43.9 [facility] Comment on above: Performed By: #### L 100.0100, L500.2500 ####[facility] [address] [place], [address] WBC (Bld) [#/Vol] 13.0 10*3/uL High 4.4-11.0 [facility] Comment on above: Performed By: #### L 100.0100, L500.2500 ####[facility] [address] [place], [address] Calcium [Mass/Vol]Ordered By : Anuja Murcia on 05-17-2024 Serum or plasma calcium measurement (mass/volume) 8.8 mg/dL 7.6-11.0 [facility] Carbon dioxide, total [Moles /volume] in Central venous bloodOrdered By: Anuja Murcia on 05-17-2024 CO2 [Moles/Vol] 19.8 mmol/L Low 21.0-32.0 [facility] Carbon dioxide, total [Moles/volume] in Central venous blood 19.8 mmol/L Low 21.0-32.0 [facility] Chloride assayOrdered By: Pascual Murcia on 05-17-2024 Chloride [Moles/Vol] 105 mmol/L 98-108 [facility] Chloride assay 105 mmol/L 98-108 [facility] Creatinine Unsp time (U) [Ma ss/Vol]Ordered By: Suma Robertson on 05-17-2024 Random urine creatinine measurement (mass/volume) 21.70 mg/dL Low 28.00-217.0 0 [facility] Creatinine [Mass/Vol]Ordered By: Anuja Murcia on 05-17-2024 Serum creatinine measurement (mass/volume) 1.13 mg/dL 0.70-1.20 [facility] Emergency Department Summary on 05-17-2024 Emergency Department Summary Normal [facility] Eosinophil percentageOrdered By: Anuja Murcia on 05-17-2024 Eosinophils/100 WBC (Bld) 0.7 % 0-5 [facility] Eosinophil percentage 0.7 % 0-5 [facility] Erythrocyte distribution wid th (RBC) [Ratio]Ordered By: Anuja Murcia on 05-17-2024 Erythrocyte distribution width ratio 13.9 % 11.6-14.6 [facility] Erythrocyte distribution width standard deviation 45.0 fl High 35.1-43.9 [facility] Erythrocyte distribution wid th ratioOrdered By: Anuja Murcia on 05-17-2024 Erythrocyte distribution width (RBC) [Ratio] 13.9 % 11.6-14.6 [facility] Erythrocyte distribution wid th standard deviationOrdered By: Anuja Murcia on 05-17-2024 Erythrocyte distribution width (RBC) [Ratio] 45.0 fl High 35.1-43.9 [facility] Estimation of creatinine maribel aranceOrdered By: Anuja Murcia on 05-17-2024 Estimation of creatinine clearance 43.85 ml/min Low 50-250 [facility] GFR/1.73 sq M.predicted shorty g non-blacks MDRD (S/P/Bld) [Vol rate/Area]Ordered By: Anuja Murcia on 05-17-2024 Glomerular filtration rate (GFR) estimation/1.73 sq m using serum, plasma, or whole b 52 Low >60 [facility] Glomerular filtration rate ( GFR) estimation/1.73 sq m using serum, plasma, or whole bOrdered By: Anuja Murcia on 05-17-2024 GFR/1.73 sq M.predicted among non-blacks MDRD (S/P/Bld) [Vol rate/Area] 52 mL/min/{1.73_m2} Low >60 [facility] Comment on above: mL/min/1.73m2 CKD-EP I Creatinine Equation (2020) Glucose [Mass/Vol]Ordered By : Anuja Murcia on 05-17-2024 Serum glucose measurement (mass/volume) 229 mg/dL High 70-99 [facility] Glucose measurement at bedsi deOrdered By: Anuja Murcia on 05-17-2024 Glucose [Mass/Vol] 199 mg/dL High 74-106 [facility] Comment on above: MANAGEMENT OF PATIEN T CARE PER NURSING PROTOCOL Glucose measurement at bedside 199 mg/dL High 74-106 [facility] Hematocrit Auto (Bld) [Volum e fraction]Ordered By: Anuja Murcia on 05-17-2024 Hematocrit (Bld) [Volume fraction] 36.3 % Low 37-47 [facility] Automated blood hematocrit (percentage) 36.3 % Low 37-47 [facility] Hemoglobin measurementOrdere d By: Anuja Murcia on 05-17-2024 Hemoglobin (Bld) [Mass/Vol] 11.9 g/dL Low 12.0-15.0 [facility] Hemoglobin measurement 11.9 g/dL Low 12.0-15.0 [facility] Immature granulocytes/100 WB C Auto (Bld)Ordered By: Anuja Murcia on 05-17-2024 Immature granulocytes/100 WBC (Bld) 0.300 % 0.0-0.9 [facility] Comment on above: IG% - Immature Granu locytes (promyelocytes, myelocytes and metamyelocytes) > 1% indicates that a LEFT SHIFT is Present. Automated immature granulocyte percentage 0.300 % 0.0-0.9 [facility] Lymphocytes Auto (Unsp spec) [#/Vol]Ordered By: Anuja Murcia on 05-17-2024 Absolute lymphocyte count 2.47 X10^3/uL 0.83-4.51 [facility] Lymphocytes/100 WBC Auto (Un sp spec)Ordered By: Anuja Murcia on 05-17-2024 Automated lymphocyte count as percentage of total leukocytes 19.1 % 19-41 [facility] MCV (RBC) [Entitic vol]Order ed By: Anuja Murcia on 05-17-2024 MCV (mean corpuscular volume) determination 89.0 fL 81-99 [facility] MCV (mean corpuscular volume ) determinationOrdered By: Anuja Murcia on 05-17-2024 MCV (RBC) [Entitic vol] 89.0 fL 81-99 [facility] Mean corpuscular hemoglobin (MCH) determinationOrdered By: Anuja Murcia on 05-17-2024 MCH (RBC) [Entitic mass] 29.2 pg 27.0-32.0 [facility] Mean corpuscular hemoglobin (MCH) determination 29.2 pg 27.0-32.0 [facility] Mean corpuscular hemoglobin concentration (MCHC) determinationOrdered By: Anuja Murcia on 05-17-2024 MCHC (RBC) [Mass/Vol] 32.8 g/dL 32-36 [facility] Mean corpuscular hemoglobin concentration (MCHC) determination 32.8 g/dL 32-36 [facility] Mean platelet volume determi nationOrdered By: Anuja Murcia on 05-17-2024 Platelet mean volume (Bld) [Entitic vol] 10.1 fL 6.2-12.0 [facility] Mean platelet volume determination 10.1 fl 6.2-12.0 [facility] Monocyte percentageOrdered B y: Anuja Murcia on 05-17-2024 Monocytes/100 WBC (Bld) 8.0 % 0-10 [facility] Monocyte percentage 8.0 % 0-10 [facility] Neutrophil percentageOrdered By: Anuja Murcia on 05-17-2024 Neutrophils/100 WBC (Bld) 71.7 % High 47-70 [facility] Neutrophil percentage 71.7 % High 47-70 [facility] Nucleated red blood cell per centageOrdered By: Anuja Murcia on 05-17-2024 Nucleated RBC/100 WBC (Bld) [Ratio] 0 % 0-5 [facility] Nucleated red blood cell percentage 0 % 0-5 [facility] Platelet countOrdered By: Pascual Murcia on 05-17-2024 Platelets (Bld) [#/Vol] 249 10*3/uL 150-450 [facility] Platelet count 249 K/mm3 150-450 [facility] Potassium (Unsp spec) [Mass/ Vol]Ordered By: Anuja Murcia on 05-17-2024 Potassium measurement (mass/volume) 4.1 mmol/L 3.3-5.1 [facility] Potassium measurement (mass/ volume)Ordered By: Anuja Murcia on 05-17-2024 Potassium (Unsp spec) [Mass/Vol] 4.1 mmol/L 3.3-5.1 [facility] Protein (U) [Mass/Vol]Ordere d By: Suma Robertson on 05-17-2024 Urine protein measurement (mass/volume) 100.0 mg/dL High 0.0-12.0 [facility] Protein+Creatinine Ratio,Uri neon 05-17-2024 PROT:CRE RATIO 4608 mg/g CRE High 0-200 [facility] Comment on above: Order Comment: SENT LABEL TO PCU TO COLLECT Performed By: #### L 501.0900 ####[facility] [address] [place], [address] Protein (U) [Mass/Vol] 100.0 mg/dL High 0.0-12.0 [facility] Comment on above: Order Comment: SENT LABEL TO PCU TO COLLECT Performed By: #### L 501.0900 ####[facility] [address] [place], [address] UR CREAT 21.70 mg/dL Low 28.00-217.0 0 [facility] Comment on above: Order Comment: SENT LABEL TO PCU TO COLLECT Performed By: #### L 501.0900 ####[facility] [address] [place], [address] Protein/Creatinine (U) [Mass ratio]Ordered By: Suma Robertson on 05-17-2024 Urine protein/creatinine mass ratio 4608 mg/g CRE High 0-200 [facility] RBC Auto (Bld) [#/Vol]Ordere d By: Anuja Murcia on 05-17-2024 RBC (Bld) [#/Vol] 4.08 10*6/uL Low 4.2-5.4 [facility] Automated blood erythrocyte count 4.08 M/mm3 Low 4.2-5.4 [facility] Random urine creatinine timbo urement (mass/volume)Ordered By: Suma Robertson on 05-17-2024 Creatinine Unsp time (U) [Mass/Vol] 21.70 mg/dL Low 28.00-217.0 0 [facility] Serum creatinine measurement (mass/volume)Ordered By: Anuja Murcia on 05-17-2024 Creatinine [Mass/Vol] 1.13 mg/dL 0.70-1.20 [facility] Serum glucose measurement (m ass/volume)Ordered By: Anuja Murcia on 05-17-2024 Glucose [Mass/Vol] 229 mg/dL High 70-99 [facility] Serum or plasma calcium timbo urement (mass/volume)Ordered By: Anuja Murcia on 05-17-2024 Calcium [Mass/Vol] 8.8 mg/dL 7.6-11.0 [facility] Serum or plasma urea nitroge n measurement (mass/volume)Ordered By: Anuja Murcia on 05-17-2024 Urea nitrogen [Mass/Vol] 21 mg/dL High 05-31 [facility] Sodium levelOrdered By: Abdirahman Murcia on 05-17-2024 Sodium [Moles/Vol] 138 mmol/L 133-145 [facility] Sodium level 138 mmol/L 133-145 [facility] Urea nitrogen [Mass/Vol]Orde red By: Anuja Murcia on 05-17-2024 Serum or plasma urea nitrogen measurement (mass/volume) 21 mg/dL High 4-19 [facility] Urine protein measurement (m ass/volume)Ordered By: Suma Robertson on 05-17-2024 Protein (U) [Mass/Vol] 100.0 mg/dL High 0.0-12.0 [facility] Urine protein/creatinine mas s ratioOrdered By: Suma Robertson on 05-17-2024 Protein/Creatinine (U) [Mass ratio] 4608 mg/g CRE High 0-200 [facility] White blood cell (WBC) count Ordered By: Anuja Murcia on 05-17-2024 WBC (Bld) [#/Vol] 13.0 10*3/uL High 4.4-11.0 [facility] White blood cell (WBC) count 13.0 K/mm3 High 4.4-11.0 [facility] 12 Lead EKGon 05-16-2024 12 Lead EKG Normal [facility] Basic Metabolic Profile (BMP )on 05-16-2024 BUN/CRE 17.8 RATIO Normal 10-20 [facility] Comment on above: Performed By: #### L 100.0100, L500.2500 ####[facility] [address] [place], [address] Calcium [Mass/Vol] 8.1 mg/dL Normal 7.6-11.0 [facility] Comment on above: Performed By: #### L 100.0100, L500.2500 ####[facility] [address] [place], [address] Chloride [Moles/Vol] 113 mmol/L High 98-108 [facility] Comment on above: Performed By: #### L 100.0100, L500.2500 ####[facility] [address] [place], [address] CO2 [Moles/Vol] 17.8 mmol/L Low 21.0-32.0 [facility] Comment on above: Performed By: #### L 100.0100, L500.2500 ####[facility] [address] [place], [address] Creatinine [Mass/Vol] 0.97 mg/dL Normal 0.70-1.20 [facility] Comment on above: Performed By: #### L 100.0100, L500.2500 ####[facility] [address] [place], [address] ECRCL 51.63 ml/min Normal 50-250 [facility] Comment on above: Performed By: #### L 100.0100, L500.2500 ####[facility] [address] [place], [address] GAP 11 Normal 5-15 [facility] Comment on above: Performed By: #### L 100.0100, L500.2500 ####[facility] [address] [place], [address] GFR/1.73 sq M.predicted among non-blacks MDRD (S/P/Bld) [Vol rate/Area] 63 mL/min/{1.73_m2} Normal >60 [facility] Comment on above: Result Comment: mL/m in/1.73m2 CKD-EPI Creatinine Equation (2020) Performed By: #### L 100.0100, L500.2500 ####[facility] [address] [place], [address] Glucose [Mass/Vol] 145 mg/dL High 70-99 [facility] Comment on above: Performed By: #### L 100.0100, L500.2500 ####[facility] [address] [place], [address] Potassium [Moles/Vol] 3.2 mmol/L Low 3.3-5.1 [facility] Comment on above: Performed By: #### L 100.0100, L500.2500 ####[facility] [address] [place], [address] Sodium [Moles/Vol] 141 mmol/L Normal 133-145 [facility] Comment on above: Performed By: #### L 100.0100, L500.2500 ####[facility] [address] [place], [address] Urea nitrogen [Mass/Vol] 17 mg/dL Normal 4-19 [facility] Comment on above: Performed By: #### L 100.0100, L500.2500 ####[facility] [address] [place], [address] Bedside Glucoseon 05-16-2024 FINGERSTICK GLU 210 mg/dL High 74-106 [facility] Comment on above: Result Comment: GERALDO GEMENT OF PATIENT CARE PER NURSING PROTOCOL Performed By: #### L 501.080 ####[facility] [address] [facility] [address] FINGERSTICK GLU 228 mg/dL High [address] [place] [address] Comment on above: Result Comment: GERALDO GEMENT OF PATIENT CARE PER NURSING PROTOCOL Performed By: #### L 501.080 ####[facility] [address] [facility] [address] FINGERSTICK GLU 175 mg/dL High [address] [place] [address] Comment on above: Result Comment: GERALDO GEMENT OF PATIENT CARE PER NURSING PROTOCOL Performed By: #### L 501.080 ####[facility] [address] [facility] [address] FINGERSTICK GLU 140 mg/dL High [address] [place] [address] Comment on above: Result Comment: GERALDO GEMENT OF PATIENT CARE PER NURSING PROTOCOL Performed By: #### L 501.080 ####[facility] [address] [facility] [address] FINGERSTICK GLU 128 mg/dL High [address] [place] [address] Comment on above: Result Comment: GERALDO GEMENT OF PATIENT CARE PER NURSING PROTOCOL Performed By: #### L 501.080 ####[facility] [address] [facility] [address] CBC W/Diff, Automatedon 04- Absolute Lymph 2.22 X10 3/uL Normal 0.83-4.51 [facility] Comment on above: Performed By: #### L 100.0100, L500.2500 ####[facility] [address] [facility] [address] Absolute Neut 6.7 X10 3/uL Normal 2.0-7.7 [facility] Comment on above: Performed By: #### L 100.0100, L500.2500 ####[facility] [address] [place], [address] Basophils/100 WBC (Bld) 0.2 % Normal 0-1 [facility] Comment on above: Performed By: #### L 100.0100, L500.2500 ####[facility] [address] [place], [address] Eosinophils/100 WBC (Bld) 2.4 % Normal 0-5 [facility] Comment on above: Performed By: #### L 100.0100, L500.2500 ####[facility] [address] [place], [address] Erythrocyte distribution width (RBC) [Ratio] 13.6 % Normal 11.6-14.6 [facility] Comment on above: Performed By: #### L 100.0100, L500.2500 ####[facility] [address] [place], [address] Hematocrit (Bld) [Volume fraction] 30.3 % Low 37-47 [facility] Comment on above: Performed By: #### L 100.0100, L500.2500 ####[facility] [address] [place], [address] Hemoglobin (Bld) [Mass/Vol] 9.8 g/dL Low 12.0-15.0 [facility] Comment on above: Performed By: #### L 100.0100, L500.2500 ####[facility] [address] [place], [address] IG% 0.600 Normal 0.0-0.9 [facility] Comment on above: Result Comment: IG% - Immature Granulocytes (promyelocytes, myelocytes andmetamyelocytes) > 1% indicates that a LEFT SHIFT is Present. Performed By: #### L 100.0100, L500.2500 ####[facility] [address] [place], [address] Lymphocytes/100 WBC (Bld) 22.2 % Normal 19-41 [facility] Comment on above: Performed By: #### L 100.0100, L500.2500 ####[facility] [address] [place], [address] MCH (RBC) [Entitic mass] 29.2 pg Normal 27.0-32.0 [facility] Comment on above: Performed By: #### L 100.0100, L500.2500 ####[facility] [address] [place], [address] MCHC (RBC) [Mass/Vol] 32.3 g/dL Normal 32-36 [facility] Comment on above: Performed By: #### L 100.0100, L500.2500 ####[facility] [address] [place], [address] MCV (RBC) [Entitic vol] 90.2 fL Normal 81-99 [facility] Comment on above: Performed By: #### L 100.0100, L500.2500 ####[facility] [address] [place], [address] Monocytes/100 WBC (Bld) 8.0 % Normal 0-10 [facility] Comment on above: Performed By: #### L 100.0100, L500.2500 ####[facility] [address] [place], [address] Neutrophils/100 WBC (Bld) 66.6 % Normal 47-70 [facility] Comment on above: Performed By: #### L 100.0100, L500.2500 ####[facility] [address] [place], [address] Nucleated RBC (Bld) [#/Vol] 0 10*3/uL Normal 0-5 [facility] Comment on above: Performed By: #### L 100.0100, L500.2500 ####[facility] [address] [place], [address] Platelet mean volume (Bld) [Entitic vol] 10.2 fL Normal 6.2-12.0 [facility] Comment on above: Performed By: #### L 100.0100, L500.2500 ####[facility] [address] [place], [address] Platelets (Bld) [#/Vol] 179 10*3/uL Normal 150-450 [facility] Comment on above: Performed By: #### L 100.0100, L500.2500 ####[facility] [address] [place], [address] RBC (Bld) [#/Vol] 3.36 10*6/uL Low 4.2-5.4 [facility] Comment on above: Performed By: #### L 100.0100, L500.2500 ####[facility] [address] [place], [address] RDW SD 44.9 fl High 35.1-43.9 [facility] Comment on above: Performed By: #### L 100.0100, L500.2500 ####[facility] [address] [place], [address] WBC (Bld) [#/Vol] 10.0 10*3/uL Normal 4.4-11.0 [facility] Comment on above: Performed By: #### L 100.0100, L500.2500 ####[facility] [address] [place], [address] Chest PA and Lateralon 05-16 Chest PA and Lateral Normal [facility] L499.0042on 05-16-2024 Trop T High Sen 18 ng/L High <=14 [facility] Comment on above: Performed By: #### L 499.0042 ####[facility] [address] [place], [address] L499.0043on 05-16-2024 Trop T High Sen 18 ng/L High <=14 [facility] Comment on above: Performed By: #### L 499.0043 ####[facility] [address] [place], [address] L501.4021on 05-16-2024 Trop T High Sen 17 ng/L High <=14 [facility] Comment on above: Performed By: #### L 501.4021 ####[facility] [address] [place], [place], [address] Troponin T.cardiac High sens itivity method [Mass/Vol]Ordered By: Anuja Murcia on 05-16-2024 Troponin T.cardiac [Mass/volume] in Serum or Plasma by High sensitivity method 18 ng/L High <14 [facility] Troponin T.cardiac [Mass/volume] in Serum or Plasma by High sensitivity method 18 ng/L High <14 [facility] Troponin T.cardiac [Mass/volume] in Serum or Plasma by High sensitivity method 17 ng/L High <14 [facility] Troponin T.cardiac [Mass/vol ume] in Serum or Plasma by High sensitivity methodOrdered By: Anuja Murcia on 05-16-2024 Troponin T.cardiac High sensitivity method [Mass/Vol] 18 ng/L High <14 [facility] Troponin T.cardiac High sensitivity method [Mass/Vol] 18 ng/L High <14 [facility] Troponin T.cardiac High sensitivity method [Mass/Vol] 17 ng/L High <14 [facility] Basic Metabolic Profile (BMP )on 05-15-2024 BUN/CRE 15.8 RATIO Normal 10-20 [facility] Comment on above: Performed By: #### L 501.2300, L501.5200, L500.2500, L100.0100 ####[facility] [address] [place], [address] Calcium [Mass/Vol] 7.9 mg/dL Normal 7.6-11.0 [facility] Comment on above: Performed By: #### L 501.2300, L501.5200, L500.2500, L100.0100 ####[facility] [address] [place], [address] Chloride [Moles/Vol] 108 mmol/L Normal 98-108 [facility] Comment on above: Performed By: #### L 501.2300, L501.5200, L500.2500, L100.0100 ####[facility] [address] [place], [address] CO2 [Moles/Vol] 17.6 mmol/L Low 21.0-32.0 [facility] Comment on above: Performed By: #### L 501.2300, L501.5200, L500.2500, L100.0100 ####[facility] [address] [place], [address] Creatinine [Mass/Vol] 1.84 mg/dL High 0.70-1.20 [facility] Comment on above: Performed By: #### L 501.2300, L501.5200, L500.2500, L100.0100 ####[facility] [address] [place], [address] ECRCL 27.49 ml/min Low 50-250 [facility] Comment on above: Performed By: #### L 501.2300, L501.5200, L500.2500, L100.0100 ####[facility] [address] [place], [address] GAP 11 Normal 5-15 [facility] Comment on above: Performed By: #### L 501.2300, L501.5200, L500.2500, L100.0100 ####[facility] [address] [place], [address] GFR/1.73 sq M.predicted among non-blacks MDRD (S/P/Bld) [Vol rate/Area] 29 mL/min/{1.73_m2} Low >60 [facility] Comment on above: Result Comment: mL/m in/1.73m2 CKD-EPI Creatinine Equation (2020) Performed By: #### L 501.2300, L501.5200, L500.2500, L100.0100 ####[facility] [address] [place], [address] Glucose [Mass/Vol] 109 mg/dL High 70-99 [facility] Comment on above: Performed By: #### L 501.2300, L501.5200, L500.2500, L100.0100 ####[facility] [address] [place], [address] Potassium [Moles/Vol] 3.3 mmol/L Normal 3.3-5.1 [facility] Comment on above: Performed By: #### L 501.2300, L501.5200, L500.2500, L100.0100 ####[facility] [address] [place], [address] Sodium [Moles/Vol] 137 mmol/L Normal 133-145 [facility] Comment on above: Performed By: #### L 501.2300, L501.5200, L500.2500, L100.0100 ####[facility] [address] [place], [address] Urea nitrogen [Mass/Vol] 29 mg/dL High 4-19 [facility] Comment on above: Performed By: #### L 501.2300, L501.5200, L500.2500, L100.0100 ####[facility] [address] [place], [address] Bedside Glucoseon 05-15-2024 FINGERSTICK GLU 130 mg/dL High 74-106 [facility] Comment on above: Result Comment: GERALDO GEMENT OF PATIENT CARE PER NURSING PROTOCOL Performed By: #### L 501.080 ####[facility] [address] [place], [address] FINGERSTICK GLU 158 mg/dL High 74-106 [facility] Comment on above: Result Comment: GERALDO GEMENT OF PATIENT CARE PER NURSING PROTOCOL Performed By: #### L 501.080 ####[facility] [address] [place], [address] FINGERSTICK GLU 156 mg/dL High 74-106 [facility] Comment on above: Result Comment: GERALDO GEMENT OF PATIENT CARE PER NURSING PROTOCOL Performed By: #### L 501.080 ####[facility] [address] [place], [address] FINGERSTICK GLU 92 mg/dL Normal 74-106 [facility] Comment on above: Result Comment: GERALDO GEMENT OF PATIENT CARE PER NURSING PROTOCOL Performed By: #### L 501.080 ####[facility] [address] [place], [address] CBC W/Diff, Automatedon 04-0 -2024 Absolute Lymph 2.98 X10 3/uL Normal 0.83-4.51 [facility] Comment on above: Performed By: #### L 501.2300, L501.5200, L500.2500, L100.0100 ####[facility] [address] [place], [address] Absolute Neut 5.8 X10 3/uL Normal 2.0-7.7 [facility] Comment on above: Performed By: #### L 501.2300, L501.5200, L500.2500, L100.0100 ####[facility] [address] [place], [address] Basophils/100 WBC (Bld) 0.3 % Normal 0-1 [facility] Comment on above: Performed By: #### L 501.2300, L501.5200, L500.2500, L100.0100 ####[facility] [address] [place], [address] Eosinophils/100 WBC (Bld) 4.7 % Normal 0-5 [facility] Comment on above: Performed By: #### L 501.2300, L501.5200, L500.2500, L100.0100 ####[facility] [address] [place], [address] Erythrocyte distribution width (RBC) [Ratio] 13.9 % Normal 11.6-14.6 [facility] Comment on above: Performed By: #### L 501.2300, L501.5200, L500.2500, L100.0100 ####[facility] [address] [place], [address] Hematocrit (Bld) [Volume fraction] 29.6 % Low 37-47 [facility] Comment on above: Performed By: #### L 501.2300, L501.5200, L500.2500, L100.0100 ####[facility] [address] [place], [address] Hemoglobin (Bld) [Mass/Vol] 9.6 g/dL Low 12.0-15.0 [facility] Comment on above: Performed By: #### L 501.2300, L501.5200, L500.2500, L100.0100 ####[facility] [address] [place], [address] IG% 0.400 Normal 0.0-0.9 [facility] Comment on above: Result Comment: IG% - Immature Granulocytes (promyelocytes, myelocytes andmetamyelocytes) > 1% indicates that a LEFT SHIFT is Present. Performed By: #### L 501.2300, L501.5200, L500.2500, L100.0100 ####[facility] [address] [place], [address] Lymphocytes/100 WBC (Bld) 30.1 % Normal 19-41 [facility] Comment on above: Performed By: #### L 501.2300, L501.5200, L500.2500, L100.0100 ####[facility] [address] [place], [address] MCH (RBC) [Entitic mass] 29.0 pg Normal 27.0-32.0 [facility] Comment on above: Performed By: #### L 501.2300, L501.5200, L500.2500, L100.0100 ####[facility] [address] [place], [address] MCHC (RBC) [Mass/Vol] 32.4 g/dL Normal 32-36 [facility] Comment on above: Performed By: #### L 501.2300, L501.5200, L500.2500, L100.0100 ####[facility] [address] [place], [address] MCV (RBC) [Entitic vol] 89.4 fL Normal 81-99 [facility] Comment on above: Performed By: #### L 501.2300, L501.5200, L500.2500, L100.0100 ####[facility] [address] [place], [address] Monocytes/100 WBC (Bld) 6.3 % Normal 0-10 [facility] Comment on above: Performed By: #### L 501.2300, L501.5200, L500.2500, L100.0100 ####[facility] [address] [place], [address] Neutrophils/100 WBC (Bld) 58.2 % Normal 47-70 [facility] Comment on above: Performed By: #### L 501.2300, L501.5200, L500.2500, L100.0100 ####[facility] [address] [place], [address] Nucleated RBC (Bld) [#/Vol] 0 10*3/uL Normal 0-5 [facility] Comment on above: Performed By: #### L 501.2300, L501.5200, L500.2500, L100.0100 ####[facility] [address] [place], [address] Platelet mean volume (Bld) [Entitic vol] 10.0 fL Normal 6.2-12.0 [facility] Comment on above: Performed By: #### L 501.2300, L501.5200, L500.2500, L100.0100 ####[facility] [address] [place], [address] Platelets (Bld) [#/Vol] 168 10*3/uL Normal 150-450 [facility] Comment on above: Performed By: #### L 501.2300, L501.5200, L500.2500, L100.0100 ####[facility] [address] [place], [address] RBC (Bld) [#/Vol] 3.31 10*6/uL Low 4.2-5.4 [facility] Comment on above: Performed By: #### L 501.2300, L501.5200, L500.2500, L100.0100 ####[facility] [address] [place], [address] RDW SD 45.4 fl High 35.1-43.9 [facility] Comment on above: Performed By: #### L 501.2300, L501.5200, L500.2500, L100.0100 ####[facility] [address] [place], [address] WBC (Bld) [#/Vol] 9.9 10*3/uL Normal 4.4-11.0 [facility] Comment on above: Performed By: #### L 501.2300, L501.5200, L500.2500, L100.0100 ####[facility] [address] [place], [address] Consultation - Nephrologyon 05-15-2024 Consultation - Nephrology Normal [facility] Magnesiumon 05-15-2024 Magnesium [Mass/Vol] 1.6 mg/dL Normal 1.5-2.2 [facility] Comment on above: Performed By: #### L 501.2300, L501.5200, L500.2500, L100.0100 ####[facility] [id number] [place], [address] Magnesium (Unsp spec) [Mass/ Vol]Ordered By: Anuja Murcia on 05-15-2024 Magnesium measurement (mass/volume) 1.6 mg/dL 1.5-2.2 [facility] Magnesium measurement (mass/ volume)Ordered By: Anuja Murcia on 05-15-2024 Magnesium (Unsp spec) [Mass/Vol] 1.6 mg/dL 1.5-2.2 [facility] Phosphoruson 05-15-2024 Phosphate [Mass/Vol] 3.6 mg/dL Normal 2.7-4.5 [facility] Comment on above: Performed By: #### L 501.2300, L501.5200, L500.2500, L100.0100 ####[facility] [address] [place], [place], [address] Serum phosphorus measurement Ordered By: Anuja Murcia on 05-15-2024 Serum phosphorus measurement 3.6 mg/dL 2.7-4.5 [facility] ALP [Catalytic activity/Vol] Ordered By: Kanwal Aguilar on 05-14-2024 Serum or plasma alkaline phosphatase measurement 100 U/L 35-104 [facility] ALT [Catalytic activity/Vol] Ordered By: Kanwal Aguilar on 05-14-2024 Serum or plasma alanine aminotransferase (ALT) measurement 10 U/L <35 [facility] Albumin [Mass/Vol]Ordered By : Kanwal Aguilar on 05-14-2024 Serum or plasma albumin measurement (mass/volume) 3.7 g/dL 3.4-4.8 [facility] Albumin/Globulin [Mass ratio ]Ordered By: Kanwal Aguilar on 05-14-2024 Serum or plasma albumin/globulin mass ratio 1.4 RATIO 0.9-2.4 [facility] Bedside Glucoseon 05-14-2024 FINGERSTICK GLU 131 mg/dL High [address] [place] [address] Comment on above: Result Comment: GERALDO GEMENT OF PATIENT CARE PER NURSING PROTOCOL Performed By: #### L 501.080 ####[facility] [address] [place], [address] FINGERSTICK GLU 204 mg/dL High [address] [place] [address] Comment on above: Result Comment: GERALDO GEMENT OF PATIENT CARE PER NURSING PROTOCOL Performed By: #### L 501.080 ####[facility] [address] [place], [address] FINGERSTICK GLU 225 mg/dL High [address] [place] [address] Comment on above: Result Comment: GERALDO GEMENT OF PATIENT CARE PER NURSING PROTOCOL Performed By: #### L 501.080 ####[facility] [address] [place], [address] FINGERSTICK GLU 254 mg/dL High [address] [place] [address] Comment on above: Result Comment: GERALDO GEMENT OF PATIENT CARE PER NURSING PROTOCOL Performed By: #### L 501.080 ####[facility] [address] [place], [address] FINGERSTICK GLU 350 mg/dL High [address] [place] [address] Comment on above: Result Comment: GERALDO GEMENT OF PATIENT CARE PER NURSING PROTOCOL Performed By: #### L 501.080 ####[facility] [address] [place], [address] Bilirubin, totalOrdered By: Kanwal Aguilar on 05-14-2024 Bilirubin [Mass/Vol] 0.62 mg/dL 0.00-1.30 [facility] Bilirubin, total 0.62 mg/dL 0.00-1.30 [facility] CBC W/Diff, Automatedon 04-0 2-2024 Absolute Lymph 1.20 X10 3/uL Normal 0.83-4.51 [facility] Comment on above: Performed By: #### L 500.4050, L100.0100 ####[facility] [address] [place], [address] Absolute Neut 12.3 X10 3/uL High 2.0-7.7 [facility] Comment on above: Performed By: #### L 500.4050, L100.0100 ####[facility] [address] [place], [address] Basophils/100 WBC (Bld) 0.1 % Normal 0-1 [facility] Comment on above: Performed By: #### L 500.4050, L100.0100 ####[facility] [address] [place], [address] Eosinophils/100 WBC (Bld) 0.1 % Normal 0-5 [facility] Comment on above: Performed By: #### L 500.4050, L100.0100 ####[facility] [address] [place], [address] Erythrocyte distribution width (RBC) [Ratio] 13.5 % Normal 11.6-14.6 [facility] Comment on above: Performed By: #### L 500.4050, L100.0100 ####[facility] [address] [place], [address] Hematocrit (Bld) [Volume fraction] 39.9 % Normal 37-47 [facility] Comment on above: Performed By: #### L 500.4050, L100.0100 ####[facility] [address] [place], [address] Hemoglobin (Bld) [Mass/Vol] 13.0 g/dL Normal 12.0-15.0 [facility] Comment on above: Performed By: #### L 500.4050, L100.0100 ####[facility] [address] [place], [address] IG% 0.500 Normal 0.0-0.9 [facility] Comment on above: Result Comment: IG% - Immature Granulocytes (promyelocytes, myelocytes andmetamyelocytes) > 1% indicates that a LEFT SHIFT is Present. Performed By: #### L 500.4050, L100.0100 ####[facility] [address] [place], [address] Lymphocytes/100 WBC (Bld) 8.3 % Low 19-41 [facility] Comment on above: Performed By: #### L 500.4050, L100.0100 ####[facility] [address] [place], [address] MCH (RBC) [Entitic mass] 28.7 pg Normal 27.0-32.0 [facility] Comment on above: Performed By: #### L 500.4050, L100.0100 ####[facility] [address] [place], [address] MCHC (RBC) [Mass/Vol] 32.6 g/dL Normal 32-36 [facility] Comment on above: Performed By: #### L 500.4050, L100.0100 ####[facility] [address] [place], [address] MCV (RBC) [Entitic vol] 88.1 fL Normal 81-99 [facility] Comment on above: Performed By: #### L 500.4050, L100.0100 ####[facility] [address] [place], [address] Monocytes/100 WBC (Bld) 6.4 % Normal 0-10 [facility] Comment on above: Performed By: #### L 500.4050, L100.0100 ####[facility] [address] [place], [address] Neutrophils/100 WBC (Bld) 84.6 % High 47-70 [facility] Comment on above: Performed By: #### L 500.4050, L100.0100 ####[facility] [address] [place], [address] Nucleated RBC (Bld) [#/Vol] 0 10*3/uL Normal 0-5 [facility] Comment on above: Performed By: #### L 500.4050, L100.0100 ####[facility] [address] [place], [address] Platelet mean volume (Bld) [Entitic vol] 9.6 fL Normal 6.2-12.0 [facility] Comment on above: Performed By: #### L 500.4050, L100.0100 ####[facility] [address] [place], [address] Platelets (Bld) [#/Vol] 286 10*3/uL Normal 150-450 [facility] Comment on above: Performed By: #### L 500.4050, L100.0100 ####[facility] [address] [place], [address] RBC (Bld) [#/Vol] 4.53 10*6/uL Normal 4.2-5.4 [facility] Comment on above: Performed By: #### L 500.4050, L100.0100 ####[facility] [address] [place], [address] RDW SD 43.6 fl Normal 35.1-43.9 [facility] Comment on above: Performed By: #### L 500.4050, L100.0100 ####[facility] [address] [place], [address] WBC (Bld) [#/Vol] 14.5 10*3/uL High 4.4-11.0 [facility] Comment on above: Performed By: #### L 500.4050, L100.0100 ####[facility] [address] [place], [address] Comprehensive Metabolic Prof ilon 05-14-2024 Albumin [Mass/Vol] 3.7 g/dL Normal 3.4-4.8 [facility] Comment on above: Performed By: #### L 500.4050, L100.0100 ####[facility] [address] [place], [address] Albumin/Globulin [Mass ratio] 1.4 {ratio} Normal 0.9-2.4 [facility] Comment on above: Performed By: #### L 500.4050, L100.0100 ####[facility] [address] [place], [address] ALK PHOS 100 U/L Normal 35-104 [facility] Comment on above: Performed By: #### L 500.4050, L100.0100 ####[facility] [address] [place], [address] ALT [Catalytic activity/Vol] 10 U/L Normal <=34 [facility] Comment on above: Performed By: #### L 500.4050, L100.0100 ####[facility] [address] [place], [address] AST [Catalytic activity/Vol] 21 U/L Normal <=31 [facility] Comment on above: Performed By: #### L 500.4050, L100.0100 ####[facility] [address] [place], [address] Bilirubin [Mass/Vol] 0.62 mg/dL Normal 0.00-1.30 [facility] Comment on above: Performed By: #### L 500.4050, L100.0100 ####[facility] [address] [place], [address] BUN/CRE 12.7 RATIO Normal 10-20 [facility] Comment on above: Performed By: #### L 500.4050, L100.0100 ####[facility] [address] [place], [address] Calcium [Mass/Vol] 8.8 mg/dL Normal 7.6-11.0 [facility] Comment on above: Performed By: #### L 500.4050, L100.0100 ####[facility] [address] [place], [address] Chloride [Moles/Vol] 103 mmol/L Normal 98-108 [facility] Comment on above: Performed By: #### L 500.4050, L100.0100 ####[facility] [address] [place], [address] CO2 [Moles/Vol] 16.4 mmol/L Low 21.0-32.0 [facility] Comment on above: Performed By: #### L 500.4050, L100.0100 ####[facility] [address] [place], [address] Creatinine [Mass/Vol] 1.79 mg/dL High 0.70-1.20 [facility] Comment on above: Performed By: #### L 500.4050, L100.0100 ####[facility] [address] [place], [address] ECRCL 26.43 ml/min Low 50-250 [facility] Comment on above: Performed By: #### L 500.4050, L100.0100 ####[facility] [address] [place], [address] GAP 15 Normal 5-15 [facility] Comment on above: Performed By: #### L 500.4050, L100.0100 ####[facility] [address] [place], [address] GFR/1.73 sq M.predicted among non-blacks MDRD (S/P/Bld) [Vol rate/Area] 30 mL/min/{1.73_m2} Low >60 [facility] Comment on above: Result Comment: mL/m in/1.73m2 CKD-EPI Creatinine Equation (2020) Performed By: #### L 500.4050, L100.0100 ####[facility] [address] [place], [address] Globulin (S) [Mass/Vol] 2.8 g/dL Normal 2.2-4.2 [facility] Comment on above: Performed By: #### L 500.4050, L100.0100 ####[facility] [address] [place], [address] Glucose [Mass/Vol] 267 mg/dL High 70-99 [facility] Comment on above: Performed By: #### L 500.4050, L100.0100 ####[facility] [address] [place], [address] Potassium [Moles/Vol] 3.6 mmol/L Normal 3.3-5.1 [facility] Comment on above: Performed By: #### L 500.4050, L100.0100 ####[facility] [address] [place], [address] Sodium [Moles/Vol] 134 mmol/L Normal 133-145 [facility] Comment on above: Performed By: #### L 500.4050, L100.0100 ####[facility] [address] [place], [address] T PROT 6.5 g/dL Normal 5.9-8.4 [facility] Comment on above: Performed By: #### L 500.4050, L100.0100 ####[facility] [address] [place], [address] Urea nitrogen [Mass/Vol] 23 mg/dL High 4-19 [facility] Comment on above: Performed By: #### L 500.4050, L100.0100 ####[facility] [address] [place], [address] Kidney and Bladderon 025 Kidney and Bladder Normal [facility] Laboratory - Chemistry and C hemistry - challengeOrdered By: Kanwal Aguilar on 05-14-2024 AST [Catalytic activity/Vol] 21 U/L <32 [facility] No Panel InformationOrdered By: Kanwal Aguilar on 05-14-2024 21 U/L <32 [facility] Serum globulin measurementOr dered By: Kanwal Aguilar on 05-14-2024 Globulin (S) [Mass/Vol] 2.8 g/dL 2.2-4.2 [facility] Serum globulin measurement 2.8 g/dL 2.2-4.2 [facility] Serum or plasma alanine jo otransferase (ALT) measurementOrdered By: Kanwal Aguilar 05-14-2024 ALT [Catalytic activity/Vol] 10 U/L <35 [facility] Serum or plasma albumin timbo urement (mass/volume)Ordered By: Kanwal Aguilar 05-14-2024 Albumin [Mass/Vol] 3.7 g/dL 3.4-4.8 [facility] Serum or plasma albumin/glob ulin mass ratioOrdered By: Kanwal Aguilar 05-14-2024 Albumin/Globulin [Mass ratio] 1.4 {ratio} 0.9-2.4 [facility] Serum or plasma alkaline tc sphatase measurementOrdered By: Kanwal Aguilar 05-14-2024 ALP [Catalytic activity/Vol] 100 U/L 35-104 [facility] Total proteinOrdered By: Luciana Aguilar on 05-14-2024 Protein [Mass/Vol] 6.5 g/dL 5.9-8.4 [facility] Total protein 6.5 g/dL 5.9-8.4 [facility] Absolute neutrophil countOrd ered By: Adria Montenegro on 05-13-2024 Absolute neutrophil count 15.0 X10^3/uL High 2.0-7.7 [facility] Anion gap [Moles/Vol]Ordered By: Adria Montenegro on 05-13-2024 Anion gap in Serum or Plasma 21 High 5-15 [facility] BUN/creatinine ratioOrdered By: Adria Montenegro on 05-13-2024 BUN/creatinine ratio 14.7 RATIO 10-20 [facility] Basic Metabolic Profile (BMP )on 05-13-2024 BUN/CRE 14.7 RATIO Normal 10-20 [facility] Comment on above: Performed By: #### L 100.0100, L500.2500 ####[facility] [address] [place], [address] Calcium [Mass/Vol] 9.6 mg/dL Normal 7.6-11.0 [facility] Comment on above: Performed By: #### L 100.0100, L500.2500 ####[facility] [address] [place], [address] Chloride [Moles/Vol] 103 mmol/L Normal 98-108 [facility] Comment on above: Performed By: #### L 100.0100, L500.2500 ####[facility] [address] [place], [address] CO2 [Moles/Vol] 13.8 mmol/L Low 21.0-32.0 [facility] Comment on above: Performed By: #### L 100.0100, L500.2500 ####[facility] [address] [place], [address] Creatinine [Mass/Vol] 1.13 mg/dL Normal 0.70-1.20 [facility] Comment on above: Performed By: #### L 100.0100, L500.2500 ####[facility] [address] [place], [address] ECRCL 45.46 ml/min Low 50-250 [facility] Comment on above: Performed By: #### L 100.0100, L500.2500 ####[facility] [address] [place], [address] GAP 21 High 5-15 [facility] Comment on above: Performed By: #### L 100.0100, L500.2500 ####[facility] [address] [place], [address] GFR/1.73 sq M.predicted among non-blacks MDRD (S/P/Bld) [Vol rate/Area] 52 mL/min/{1.73_m2} Low >60 [facility] Comment on above: Result Comment: mL/m in/1.73m2 CKD-EPI Creatinine Equation (2020) Performed By: #### L 100.0100, L500.2500 ####[facility] [address] [place], [address] Glucose [Mass/Vol] 177 mg/dL High 70-99 [facility] Comment on above: Performed By: #### L 100.0100, L500.2500 ####[facility] [address] [place], [address] Potassium [Moles/Vol] 3.8 mmol/L Normal 3.3-5.1 [facility] Comment on above: Result Comment: Hemo lysis present, Results??could be affected.?? Performed By: #### L 100.0100, L500.2500 ####[facility] [address] [place], [address] Sodium [Moles/Vol] 137 mmol/L Normal 133-145 [facility] Comment on above: Performed By: #### L 100.0100, L500.2500 ####[facility] [address] [place], [address] Urea nitrogen [Mass/Vol] 17 mg/dL Normal 4-19 [facility] Comment on above: Performed By: #### L 100.0100, L500.2500 ####[facility] [address] [place], [address] Bilirubin Test strip Ql (U)O rdered By: Adria Kimbeth on 05-13-2024 Bilirubin Ql (U) Negative Negative [facility] Brain/Head without Contrasto n 05-13-2024 Brain/Head without Contrast Normal [facility] CBC W/Diff, Automatedon Absolute Lymph 0.85 X10 3/uL Normal 0.83-4.51 [facility] Comment on above: Performed By: #### L 100.0100, L500.2500 ####[facility] [address] [place], [address] Absolute Neut 15.0 X10 3/uL High 2.0-7.7 [facility] Comment on above: Performed By: #### L 100.0100, L500.2500 ####[facility] [address] [place], [address] Basophils/100 WBC (Bld) 0.1 % Normal 0-1 [facility] Comment on above: Performed By: #### L 100.0100, L500.2500 ####[facility] [address] [place], [address] Eosinophils/100 WBC (Bld) 0.1 % Normal 0-5 [facility] Comment on above: Performed By: #### L 100.0100, L500.2500 ####[facility] [address] [place], [address] Erythrocyte distribution width (RBC) [Ratio] 13.2 % Normal 11.6-14.6 [facility] Comment on above: Performed By: #### L 100.0100, L500.2500 ####[facility] [address] [place], [address] Hematocrit (Bld) [Volume fraction] 41.4 % Normal 37-47 [facility] Comment on above: Performed By: #### L 100.0100, L500.2500 ####[facility] [address] [place], [address] Hemoglobin (Bld) [Mass/Vol] 13.9 g/dL Normal 12.0-15.0 [facility] Comment on above: Performed By: #### L 100.0100, L500.2500 ####[facility] [address] [place], [address] IG% 0.800 Normal 0.0-0.9 [facility] Comment on above: Result Comment: IG% - Immature Granulocytes (promyelocytes, myelocytes andmetamyelocytes) > 1% indicates that a LEFT SHIFT is Present. Performed By: #### L 100.0100, L500.2500 ####[facility] [address] [place], [address] Lymphocytes/100 WBC (Bld) 5.0 % Low 19-41 [facility] Comment on above: Performed By: #### L 100.0100, L500.2500 ####[facility] [address] [place], [address] MCH (RBC) [Entitic mass] 29.1 pg Normal 27.0-32.0 [facility] Comment on above: Performed By: #### L 100.0100, L500.2500 ####[facility] [address] [place], [address] MCHC (RBC) [Mass/Vol] 33.6 g/dL Normal 32-36 [facility] Comment on above: Performed By: #### L 100.0100, L500.2500 ####[facility] [address] [place], [address] MCV (RBC) [Entitic vol] 86.6 fL Normal 81-99 [facility] Comment on above: Performed By: #### L 100.0100, L500.2500 ####[facility] [address] [place], [address] Monocytes/100 WBC (Bld) 6.1 % Normal 0-10 [facility] Comment on above: Performed By: #### L 100.0100, L500.2500 ####[facility] [address] [place], [address] Neutrophils/100 WBC (Bld) 87.9 % High 47-70 [facility] Comment on above: Performed By: #### L 100.0100, L500.2500 ####[facility] [address] [place], [address] Nucleated RBC (Bld) [#/Vol] 0 10*3/uL Normal 0-5 [facility] Comment on above: Performed By: #### L 100.0100, L500.2500 ####[facility] [address] [place], [address] Platelet mean volume (Bld) [Entitic vol] 9.4 fL Normal 6.2-12.0 [facility] Comment on above: Performed By: #### L 100.0100, L500.2500 ####[facility] [address] [place], [address] Platelets (Bld) [#/Vol] 296 10*3/uL Normal 150-450 [facility] Comment on above: Performed By: #### L 100.0100, L500.2500 ####[facility] [address] [place], [address] RBC (Bld) [#/Vol] 4.78 10*6/uL Normal 4.2-5.4 [facility] Comment on above: Performed By: #### L 100.0100, L500.2500 ####[facility] [address] [place], [address] RDW SD 41.1 fl Normal 35.1-43.9 [facility] Comment on above: Performed By: #### L 100.0100, L500.2500 ####[facility] [address] [place], [address] WBC (Bld) [#/Vol] 17.0 10*3/uL High 4.4-11.0 [facility] Comment on above: Performed By: #### L 100.0100, L500.2500 ####[facility] [address] [place], [address] Calcium [Mass/Vol]Ordered By : Adria Montenegro on 05-13-2024 Serum or plasma calcium measurement (mass/volume) 9.6 mg/dL 7.6-11.0 [facility] Carbon dioxide, total [Moles /volume] in Central venous bloodOrdered By: Adria Montenegro on 05-13-2024 Carbon dioxide, total [Moles/volume] in Central venous blood 13.8 mmol/L Low 21.0-32.0 [facility] Chloride assayOrdered By: Oscar Montenegro on 05-13-2024 Chloride assay 103 mmol/L 98-108 [facility] Clarity (U)Ordered By: Adria Montenegro on 05-13-2024 Urine clarity Clear Clear [facility] Color (U)Ordered By: Adria campos on 05-13-2024 Urine color determination Yellow Yellow [facility] Creatinine [Mass/Vol]Ordered By: Adria Montenegro on 05-13-2024 Serum creatinine measurement (mass/volume) 1.13 mg/dL 0.70-1.20 [facility] Emergency Department Summary on 05-13-2024 Emergency Department Summary Normal [facility] Eosinophil percentageOrdered By: Adria Montenegro on 05-13-2024 Eosinophil percentage 0.1 % 0-1 [facility] Erythrocyte distribution wid th (RBC) [Ratio]Ordered By: Adria Montenegro on 05-13-2024 Erythrocyte distribution width ratio 13.2 % 11.6-14.6 [facility] Erythrocyte distribution width standard deviation 41.1 fl 35.1-43.9 [facility] Estimation of creatinine maribel aranceOrdered By: Adria Montenegro on 05-13-2024 Estimation of creatinine clearance 45.46 ml/min Low 50-250 [facility] GFR/1.73 sq M.predicted shorty g non-blacks MDRD (S/P/Bld) [Vol rate/Area]Ordered By: Adria Montenegro on 05-13-2024 Glomerular filtration rate (GFR) estimation/1.73 sq m using serum, plasma, or whole b 52 Low >60 [facility] Glucose Ql (U)Ordered By: Oscar Montenegro on 05-13-2024 Urine glucose detection 50 mg/dl High Normal [facility] Glucose [Mass/Vol]Ordered By : Adria Montenegro on 05-13-2024 Serum glucose measurement (mass/volume) 177 mg/dL High 70-99 [facility] H AND P Exam - Hospitaliston 05-13-2024 H&P Exam - Hospitalist Normal [facility] Hematocrit Auto (Bld) [Volum e fraction]Ordered By: Adria Montenegro on 05-13-2024 Automated blood hematocrit (percentage) 41.4 % 37-47 [facility] Hemoglobin measurementOrdere d By: Adria Montenegro on 05-13-2024 Hemoglobin measurement 13.9 g/dL 12.0-15.0 [facility] Immature granulocytes/100 WB C Auto (Bld)Ordered By: Adria Montenegro on 05-13-2024 Automated immature granulocyte percentage 0.800 % 0.0-0.9 [facility] Ketones Test strip Ql (U)Ord ered By: Adria Montenegro on 05-13-2024 Ketones Ql (U) 15 mg/dl High Negative [facility] Urine ketones detection by test strip 15 mg/dl High Negative [facility] L509.7001on 05-13-2024 Procalcitonin 0.08 ng/mL Normal <=0.10 [facility] Comment on above: Result Comment: Inte rpretation:<0.10-0.25 ng/mL: Antibiotic therapy discouraged. Bacterialinfection unlikely.0.25-0.50 ng/mL: Antibiotic therapy encouraged. Bacterialinfection possible.>0.50 ng/mL: Antibiotic therapy strongly encouraged.Suggestive of presence of bacterial infection.PCT should always be interpreted in the clinical context ofthe patient. Therefore, clinicians should use the PCTresults in conjunction with other laboratory findings andclinical signs of the patient. Performed By: #### L 509.7001 ####[facility] [address] [place], [address] Lymphocytes Auto (Unsp spec) [#/Vol]Ordered By: Adria Montenegro on 05-13-2024 Absolute lymphocyte count 0.85 X10^3/uL 0.83-4.51 [facility] Lymphocytes/100 WBC Auto (Un sp spec)Ordered By: Adria Montenegro on 05-13-2024 Automated lymphocyte count as percentage of total leukocytes 5.0 % Low 19-41 [facility] MCV (RBC) [Entitic vol]Order ed By: Adria Montenegro on 05-13-2024 MCV (mean corpuscular volume) determination 86.6 fL 81-99 [facility] Mean corpuscular hemoglobin (MCH) determinationOrdered By: Adria Montenegro on 05-13-2024 Mean corpuscular hemoglobin (MCH) determination 29.1 pg 27.0-32.0 [facility] Mean corpuscular hemoglobin concentration (MCHC) determinationOrdered By: Adria Montenegro on 05-13-2024 Mean corpuscular hemoglobin concentration (MCHC) determination 33.6 g/dL 32-36 [facility] Mean platelet volume determi nationOrdered By: Adria Montenegro on 05-13-2024 Mean platelet volume determination 9.4 fl 6.2-12.0 [facility] Microscopic analysis of urin e for red blood cells (RBC)Ordered By: Adria Montenegro on 05-13-2024 Microscopic analysis of urine for red blood cells (RBC) 0 SEEN /hpf 0-5 [facility] Microscopic analysis of urine for red blood cells (RBC) 0 SEEN /hpf [facility] Monocyte percentageOrdered B y: Adria Montenegro on 05-13-2024 Monocyte percentage 6.1 % 0-10 [facility] Mucus LM Ql (Urine sed)Order ed By: Adria Montenegro on 05-13-2024 Mucus Ql (Urine sed) 0 SEEN /hpf [facility] Neutrophil percentageOrdered By: Adria Montenegro on 05-13-2024 Neutrophil percentage 87.9 % High 47-70 [facility] Nitrite Test strip Ql (U)Ord ered By: Adria Montenegro on 05-13-2024 Nitrite Ql (U) Negative Negative [facility] No Panel InformationOrdered By: Kanwal Aguilar on 05-13-2024 Procalcitonin 0.08 ng/mL <0.11 [facility] Comment on above: Interpretation:<0.10 -0.25 ng/mL: Antibiotic therapy discouraged. Bacterial infection unlikely.0.25-0.50 ng/mL: Antibiotic therapy encouraged. Bacterial infection possible.>0.50 ng/mL: Antibiotic therapy strongly encouraged. Suggestive of presence of bacterial infection.PCT should always be interpreted in the clinical context of the patient. Therefore, clinicians should use the PCT results in conjunction with other laboratory findings and clinical signs of the patient. 0.08 ng/mL <0.11 [facility] Nucleated red blood cell per centageOrdered By: Adria Montenegro on 05-13-2024 Nucleated red blood cell percentage 0 % 0-5 [facility] Platelet countOrdered By: Oscar Montenegro on 05-13-2024 Platelet count 296 K/mm3 150-450 [facility] Potassium (Unsp spec) [Mass/ Vol]Ordered By: Adria Montenegro on 05-13-2024 Potassium measurement (mass/volume) 3.8 mmol/L 3.3-5.1 [facility] Protein Test strip Ql (U)Ord ered By: Adria Montenegro on 05-13-2024 Protein Ql (U) 100 mg/dl High Negative [facility] Urine protein assay by test strip, semi-quantitative 100 mg/dl High Negative [facility] RBC Auto (Bld) [#/Vol]Ordere d By: Adria Montenegro on 05-13-2024 Automated blood erythrocyte count 4.78 M/mm3 4.2-5.4 [facility] Sodium levelOrdered By: Adria Montenegro on 05-13-2024 Sodium level 137 mmol/L 133-145 [facility] Specific gravity (U) [Rel de nsity]Ordered By: Adria Montenegro on 05-13-2024 Urine specific gravity measurement 1.010 1.002-1.030 [facility] Spine Lumbar without Contras ton 05-13-2024 Spine Lumbar without Contrast Normal [facility] Squamous epithelial cells de tection in urine sediment by light microscopyOrdered By: Adria Montenegro on 05-13-2024 Epithelial cells.squamous LM Ql (Urine sed) 0 SEEN /hpf 5-10 [facility] Urea nitrogen [Mass/Vol]Orde red By: Adria Montenegro on 05-13-2024 Serum or plasma urea nitrogen measurement (mass/volume) 17 mg/dL -19 [facility] Urinalysis, Completeon 05-13 WBC 0-5 SEEN Normal 0-5 [facility] Comment on above: Order Comment: DAYAN CTOR TO SPECIFY Performed By: #### L 400.0001 ####[facility] [address] [place], [address] BACTERIA 0 SEEN Normal None Seen [facility] Comment on above: Order Comment: DAYAN CTOR TO SPECIFY Performed By: #### L 400.0001 ####[facility] [address] [place], [address] EPI,SQUAMOUS 0 SEEN Normal 5-10 [facility] Comment on above: Order Comment: DAYNA CTOR TO SPECIFY Performed By: #### L 400.0001 ####[facility] [address] [place], [address] Mucus Ql (Urine sed) 0 SEEN Normal [facility] Comment on above: Order Comment: DAYAN CTOR TO SPECIFY Performed By: #### L 400.0001 ####[facility] [address] [place], [address] RBC 0 SEEN Normal 0-5 [facility] Comment on above: Order Comment: DAYAN CTOR TO SPECIFY Performed By: #### L 400.0001 ####[facility] [address] [place], [address] Urine blood detectionOrdered By: Adria Montenegro on 05-13-2024 Urine blood detection 10 /ul High Negative [facility] Urine clarityOrdered By: Vijaya Montenegro on 05-13-2024 Clarity (U) Clear Clear [facility] Urine color determinationOrd ered By: Adria Montenegro on 05-13-2024 Color (U) Yellow Yellow [facility] Urine glucose detectionOrder ed By: Adria Montenegro on 05-13-2024 Glucose Ql (U) 50 mg/dl High Normal [facility] Urine leukocyte esterase det ection by dipstickOrdered By: Adria Montenegro on 05-13-2024 Leukocyte esterase Test strip Ql (U) Negative Negative [facility] Urine pHOrdered By: Adria whitney on 05-13-2024 pH (U) 6.0 [pH] 5.0 - 8.0 [facility] Urine sediment bacteria coun t by microscopy (number/high power field)Ordered By: Adria Montenegro on 05-13-2024 Bacteria LM.HPF (Urine sed) [#/Area] 0 /[HPF] None Seen [facility] Urine specific gravity measu rementOrdered By: Adria Montenegro on 05-13-2024 Specific gravity (U) [Rel density] 1.010 1.002-1.030 [facility] Urine total bilirubin detect ion by test stripOrdered By: Adria Montenegro on 05-13-2024 Urine total bilirubin detection by test strip Negative Negative [facility] Urine urobilinogen measureme ntOrdered By: Adria Montenegro on 05-13-2024 Urobilinogen Ql (U) Normal mg/dl Normal [facility] Urobilinogen Ql (U)Ordered B y: Adria Montenegro on 05-13-2024 Urine urobilinogen measurement Normal mg/dl Normal [facility] White blood cell (WBC) count Ordered By: Adria Montenegro on 05-13-2024 White blood cell (WBC) count 17.0 K/mm3 High 4.4-11.0 [facility] White blood cell countOrdere d By: Adria Montenegro on 05-13-2024 White blood cell count 0-5 SEEN /hpf 0-5 [facility] White blood cell count 0-5 SEEN /hpf 0-5 [facility] pH (U)Ordered By: Adria Fang ca on 05-13-2024 Urine pH 6.0 5.0 - 8.0 [facility] Culture, Blood (WB)on 2024 CUB Blood cultures x2, f rom two different sites No growth in 5 days. Normal [facility] Comment on above: Performed By: #### L 503.6005, L300.4310, M200.1000, L500.4050, L300.3900, L501.3620, L100.0100 ####[facility] [address] [place], [address] Bedside Glucoseon 04-24-2024 FINGERSTICK GLU 176 mg/dL High 74-106 [facility] Comment on above: Result Comment: GERALDO GEMENT OF PATIENT CARE PER NURSING PROTOCOL Performed By: #### L 501.080 ####[facility] [address] [place], [address] FINGERSTICK GLU 159 mg/dL High 74-106 [facility] Comment on above: Result Comment: GERALDO GEMENT OF PATIENT CARE PER NURSING PROTOCOL Performed By: #### L 501.080 ####[facility] [address] [place], [address] FINGERSTICK GLU 171 mg/dL High 74-106 [facility] Comment on above: Result Comment: GERALDO GEMENT OF PATIENT CARE PER NURSING PROTOCOL Performed By: #### L 501.080 ####[facility] [address] [place], [address] FINGERSTICK GLU 142 mg/dL High 74-106 [facility] Comment on above: Result Comment: GERALDO GEMENT OF PATIENT CARE PER NURSING PROTOCOL Performed By: #### L 501.080 ####[facility] [address] [place], [address] Glucose measurement at bedsi deOrdered By: John Short on 04-24-2024 Glucose measurement at bedside 176 mg/dL High 74-106 [facility] Urine Cultureon 04-24-2024 URC Normal [facility] Comment on above: Performed By: #### M 100.2200, M100.678, L400.0001 ####[facility] [address] [place], [address] Absolute neutrophil countOrd ered By: John Short on 04-23-2024 Absolute neutrophil count 5.6 X10^3/uL 2.0-7.7 [facility] Anion gap [Moles/Vol]Ordered By: John Short on 04-23-2024 Anion gap in Serum or Plasma 9 5-15 [facility] BUN/creatinine ratioOrdered By: John Short on 04-23-2024 BUN/creatinine ratio 18.3 RATIO 10-20 [facility] Basic Metabolic Profile (BMP )on 04-23-2024 BUN/CRE 18.3 RATIO Normal - [facility] Comment on above: Performed By: #### L 500.2500 ####[facility] [address] [place], [address] Calcium [Mass/Vol] 8.7 mg/dL Normal 7.6-11.0 [facility] Comment on above: Performed By: #### L 500.2500 ####[facility] [address] [place], [address] Chloride [Moles/Vol] 111 mmol/L High 98-108 [facility] Comment on above: Performed By: #### L 500.2500 ####[facility] [address] [place], [address] CO2 [Moles/Vol] 23.1 mmol/L Normal 21.0-32.0 [facility] Comment on above: Performed By: #### L 500.2500 ####[facility] [address] [place], [address] Creatinine [Mass/Vol] 0.79 mg/dL Normal 0.70-1.20 [facility] Comment on above: Performed By: #### L 500.2500 ####[facility] [address] [place], [address] ECRCL 64.42 ml/min Normal 50-250 [facility] Comment on above: Performed By: #### L 500.2500 ####[facility] [address] [place], [address] GAP 9 Normal 5-15 [facility] Comment on above: Performed By: #### L 500.2500 ####[facility] [address] [place], [address] GFR/1.73 sq M.predicted among non-blacks MDRD (S/P/Bld) [Vol rate/Area] 80 mL/min/{1.73_m2} Normal >60 [facility] Comment on above: Result Comment: mL/m in/1.73m2 CKD-EPI Creatinine Equation (2020) Performed By: #### L 500.2500 ####[facility] [address] [place], [address] Glucose [Mass/Vol] 112 mg/dL High 70-99 [facility] Comment on above: Performed By: #### L 500.2500 ####[facility] [address] [place], [address] Potassium [Moles/Vol] 3.3 mmol/L Normal 3.3-5.1 [facility] Comment on above: Performed By: #### L 500.2500 ####[facility] [address] [place], [address] Sodium [Moles/Vol] 144 mmol/L Normal 133-145 [facility] Comment on above: Performed By: #### L 500.2500 ####[facility] [address] [place], [address] Urea nitrogen [Mass/Vol] 15 mg/dL Normal 4-19 [facility] Comment on above: Performed By: #### L 500.2500 ####[facility] [address] [place], [address] Basophil percentageOrdered B y: John Short on 04-23-2024 Basophil percentage 0.1 % 0-1 [facility] Bedside Glucoseon 04-23-2024 FINGERSTICK GLU 210 mg/dL High 74-106 [facility] Comment on above: Result Comment: GERALDO GEMENT OF PATIENT CARE PER NURSING PROTOCOL Performed By: #### L 501.080 ####[facility] [address] [place], [address] FINGERSTICK GLU 157 mg/dL High -106 [facility] Comment on above: Result Comment: GERALDO GEMENT OF PATIENT CARE PER NURSING PROTOCOL Performed By: #### L 501.080 ####[facility] [address] [place], [address] FINGERSTICK GLU 153 mg/dL High 74-106 [facility] Comment on above: Result Comment: GERALDO GEMENT OF PATIENT CARE PER NURSING PROTOCOL Performed By: #### L 501.080 ####[facility] [address] [place], [address] CBC W/Diff, Automatedon 04-12 Absolute Lymph 1.87 X10 3/uL Normal 0.83-4.51 [facility] Comment on above: Performed By: #### L 100.0100 ####[facility] [address] [place], [address] Absolute Neut 5.6 X10 3/uL Normal 2.0-7.7 [facility] Comment on above: Performed By: #### L 100.0100 ####[facility] [address] [place], [address] Basophils/100 WBC (Bld) 0.1 % Normal 0-1 [facility] Comment on above: Performed By: #### L 100.0100 ####[facility] [address] [place], [address] Eosinophils/100 WBC (Bld) 1.8 % Normal 0-5 [facility] Comment on above: Performed By: #### L 100.0100 ####[facility] [address] [place], [address] Erythrocyte distribution width (RBC) [Ratio] 12.9 % Normal 11.6-14.6 [facility] Comment on above: Performed By: #### L 100.0100 ####[facility] [address] [place], [address] Hematocrit (Bld) [Volume fraction] 35.1 % Low 37-47 [facility] Comment on above: Performed By: #### L 100.0100 ####[facility] [address] [place], [address] Hemoglobin (Bld) [Mass/Vol] 11.2 g/dL Low 12.0-15.0 [facility] Comment on above: Performed By: #### L 100.0100 ####[facility] [address] [place], [address] IG% 0.400 Normal 0.0-0.9 [facility] Comment on above: Result Comment: IG% - Immature Granulocytes (promyelocytes, myelocytes andmetamyelocytes) > 1% indicates that a LEFT SHIFT is Present. Performed By: #### L 100.0100 ####[facility] [address] [place], [address] Lymphocytes/100 WBC (Bld) 23.0 % Normal 19-41 [facility] Comment on above: Performed By: #### L 100.0100 ####[facility] [address] [place], [address] MCH (RBC) [Entitic mass] 29.1 pg Normal 27.0-32.0 [facility] Comment on above: Performed By: #### L 100.0100 ####[facility] [address] [place], [address] MCHC (RBC) [Mass/Vol] 31.9 g/dL Low 32-36 [facility] Comment on above: Performed By: #### L 100.0100 ####[facility] [address] [place], [address] MCV (RBC) [Entitic vol] 91.2 fL Normal 81-99 [facility] Comment on above: Performed By: #### L 100.0100 ####[facility] [address] [place], [address] Monocytes/100 WBC (Bld) 6.2 % Normal 0-10 [facility] Comment on above: Performed By: #### L 100.0100 ####[facility] [address] [place], [address] Neutrophils/100 WBC (Bld) 68.5 % Normal 47-70 [facility] Comment on above: Performed By: #### L 100.0100 ####[facility] [address] [place], [address] Nucleated RBC (Bld) [#/Vol] 0 10*3/uL Normal 0-5 [facility] Comment on above: Performed By: #### L 100.0100 ####[facility] [address] [place], [address] Platelet mean volume (Bld) [Entitic vol] 10.0 fL Normal 6.2-12.0 [facility] Comment on above: Performed By: #### L 100.0100 ####[facility] [address] [place], [address] Platelets (Bld) [#/Vol] 176 10*3/uL Normal 150-450 [facility] Comment on above: Performed By: #### L 100.0100 ####[facility] [address] [place], [address] RBC (Bld) [#/Vol] 3.85 10*6/uL Low 4.2-5.4 [facility] Comment on above: Performed By: #### L 100.0100 ####[facility] [address] [place], [address] RDW SD 42.8 fl Normal 35.1-43.9 [facility] Comment on above: Performed By: #### L 100.0100 ####[facility] [address] [place], [address] WBC (Bld) [#/Vol] 8.1 10*3/uL Normal 4.4-11.0 [facility] Comment on above: Performed By: #### L 100.0100 ####[facility] [address] [place], [address] Calcium [Mass/Vol]Ordered By : John Short on 04-23-2024 Serum or plasma calcium measurement (mass/volume) 8.7 mg/dL 7.6-11.0 [facility] Carbon dioxide, total [Moles /volume] in Central venous bloodOrdered By: John Short on 04-23-2024 Carbon dioxide, total [Moles/volume] in Central venous blood 23.1 mmol/L 21.0-32.0 [facility] Chloride assayOrdered By: Elliot Short on 04-23-2024 Chloride assay 111 mmol/L High 98-108 [facility] Creatinine [Mass/Vol]Ordered By: John Short on 04-23-2024 Serum creatinine measurement (mass/volume) 0.79 mg/dL 0.70-1.20 [facility] Eosinophil percentageOrdered By: John Short on 04-23-2024 Eosinophil percentage 1.8 % 0-5 [facility] Erythrocyte distribution wid th (RBC) [Ratio]Ordered By: John Short on 04-23-2024 Erythrocyte distribution width ratio 12.9 % 11.6-14.6 [facility] Erythrocyte distribution wid th standard deviationOrdered By: John Short on 04-23-2024 Erythrocyte distribution width standard deviation 42.8 fl 35.1-43.9 [facility] Estimation of creatinine maribel aranceOrdered By: John Short on 04-23-2024 Estimation of creatinine clearance 64.42 ml/min 50-250 [facility] GFR/1.73 sq M.predicted shorty g non-blacks MDRD (S/P/Bld) [Vol rate/Area]Ordered By: John Short on 04-23-2024 Glomerular filtration rate (GFR) estimation/1.73 sq m using serum, plasma, or whole b 80 >60 [facility] Glucose [Mass/Vol]Ordered By : John Short on 04-23-2024 Serum glucose measurement (mass/volume) 112 mg/dL High 70-99 [facility] Hematocrit Auto (Bld) [Volum e fraction]Ordered By: John Short on 04-23-2024 Automated blood hematocrit (percentage) 35.1 % Low 37-47 [facility] Hemoglobin measurementOrdere d By: John Short on 04-23-2024 Hemoglobin measurement 11.2 g/dL Low 12.0-15.0 [facility] Immature granulocytes/100 WB C Auto (Bld)Ordered By: John Short on 04-23-2024 Automated immature granulocyte percentage 0.400 % 0.0-0.9 [facility] Lymphocytes Auto (Unsp spec) [#/Vol]Ordered By: John Short on 04-23-2024 Absolute lymphocyte count 1.87 X10^3/uL 0.83-4.51 [facility] Lymphocytes/100 WBC Auto (Un sp spec)Ordered By: John Short on 04-23-2024 Automated lymphocyte count as percentage of total leukocytes 23.0 % 19-41 [facility] MCV (RBC) [Entitic vol]Order ed By: John Short on 04-23-2024 MCV (mean corpuscular volume) determination 91.2 fL 81-99 [facility] Mean corpuscular hemoglobin (MCH) determinationOrdered By: John Short on 04-23-2024 Mean corpuscular hemoglobin (MCH) determination 29.1 pg 27.0-32.0 [facility] Mean corpuscular hemoglobin concentration (MCHC) determinationOrdered By: John Short on 04-23-2024 Mean corpuscular hemoglobin concentration (MCHC) determination 31.9 g/dL Low 32-36 [facility] Mean platelet volume determi nationOrdered By: John Short on 04-23-2024 Mean platelet volume determination 10.0 fl 6.2-12.0 [facility] Monocyte percentageOrdered B y: John Short on 04-23-2024 Monocyte percentage 6.2 % 0-10 [facility] Neutrophil percentageOrdered By: John Short on 04-23-2024 Neutrophil percentage 68.5 % 47-70 [facility] Nucleated red blood cell per centageOrdered By: John Short on 04-23-2024 Nucleated red blood cell percentage 0 % 0-5 [facility] Platelet countOrdered By: Elliot Short on 04-23-2024 Platelet count 176 K/mm3 150-450 [facility] Potassium (Unsp spec) [Mass/ Vol]Ordered By: John Short on 04-23-2024 Potassium measurement (mass/volume) 3.3 mmol/L 3.3-5.1 [facility] RBC Auto (Bld) [#/Vol]Ordere d By: John Short on 04-23-2024 Automated blood erythrocyte count 3.85 M/mm3 Low 4.2-5.4 [facility] Sodium levelOrdered By: John Short on 04-23-2024 Sodium level 144 mmol/L 133-145 [facility] Urea nitrogen [Mass/Vol]Orde red By: John Short on 04-23-2024 Serum or plasma urea nitrogen measurement (mass/volume) 15 mg/dL 4-19 [facility] White blood cell (WBC) count Ordered By: John Short on 04-23-2024 White blood cell (WBC) count 8.1 K/mm3 4.4-11.0 [facility] Basic Metabolic Profile (BMP )on 04-22-2024 BUN/CRE 25.6 RATIO High 10-20 [facility] Comment on above: Performed By: #### L 500.2500 ####[facility] [address] [place], [address] Calcium [Mass/Vol] 8.2 mg/dL Normal 7.6-11.0 [facility] Comment on above: Performed By: #### L 500.2500 ####[facility] [address] [place], [address] Chloride [Moles/Vol] 113 mmol/L High 98-108 [facility] Comment on above: Performed By: #### L 500.2500 ####[facility] [address] [place], [address] CO2 [Moles/Vol] 21.2 mmol/L Normal 21.0-32.0 [facility] Comment on above: Performed By: #### L 500.2500 ####[facility] [address] [place], [address] Creatinine [Mass/Vol] 0.91 mg/dL Normal 0.70-1.20 [facility] Comment on above: Performed By: #### L 500.2500 ####[facility] [address] [place], [address] ECRCL 55.94 ml/min Normal 50-250 [facility] Comment on above: Performed By: #### L 500.2500 ####[facility] [address] [place], [address] GAP 9 Normal 5-15 [facility] Comment on above: Performed By: #### L 500.2500 ####[facility] [address] [place], [address] GFR/1.73 sq M.predicted among non-blacks MDRD (S/P/Bld) [Vol rate/Area] 68 mL/min/{1.73_m2} Normal >60 [facility] Comment on above: Result Comment: mL/m in/1.73m2 CKD-EPI Creatinine Equation (2020) Performed By: #### L 500.2500 ####[facility] [address] [place], [address] Glucose [Mass/Vol] 120 mg/dL High 70-99 [facility] Comment on above: Performed By: #### L 500.2500 ####[facility] [address] [place], [address] Potassium [Moles/Vol] 2.9 mmol/L Low 3.3-5.1 [facility] Comment on above: Performed By: #### L 500.2500 ####[facility] [address] [place], [address] Sodium [Moles/Vol] 143 mmol/L Normal 133-145 [facility] Comment on above: Performed By: #### L 500.2500 ####[facility] [address] [place], [address] Urea nitrogen [Mass/Vol] 23 mg/dL High 4-19 [facility] Comment on above: Performed By: #### L 500.2500 ####[facility] [address] [place], [address] Bedside Glucoseon 04-22-2024 FINGERSTICK GLU 143 mg/dL High 74-106 [facility] Comment on above: Result Comment: GERALDO GEMENT OF PATIENT CARE PER NURSING PROTOCOL Performed By: #### L 501.080 ####[facility] [address] [place], [address] FINGERSTICK GLU 145 mg/dL High 74-106 [facility] Comment on above: Result Comment: GERALDO GEMENT OF PATIENT CARE PER NURSING PROTOCOL Performed By: #### L 501.080 ####[facility] [facility] [address] [place], [address] FINGERSTICK GLU 159 mg/dL High 74-106 [facility] Comment on above: Result Comment: GERALDO GEMENT OF PATIENT CARE PER NURSING PROTOCOL Performed By: #### L 501.080 ####[facility] [address] [place], [address] FINGERSTICK GLU 105 mg/dL Normal 74-106 [facility] Comment on above: Result Comment: GERALDO GEMENT OF PATIENT CARE PER NURSING PROTOCOL Performed By: #### L 501.080 ####[facility] [address] [place], [address] FINGERSTICK GLU 105 mg/dL Normal 74-106 [facility] Comment on above: Result Comment: GERALDO GEMENT OF PATIENT CARE PER NURSING PROTOCOL Performed By: #### L 501.080 ####[facility] [address] [place], [address] FINGERSTICK GLU 91 mg/dL Normal 74-106 [facility] Comment on above: Result Comment: GERALDO GEMENT OF PATIENT CARE PER NURSING PROTOCOL Performed By: #### L 501.080 ####[facility] [address] [place], [address] ALP [Catalytic activity/Vol] Ordered By: Kanwal Lauren on 04-21-2024 Serum or plasma alkaline phosphatase measurement 76 U/L 35-104 [facility] ALT [Catalytic activity/Vol] Ordered By: Kanwal Lauren on 04-21-2024 Serum or plasma alanine aminotransferase (ALT) measurement 20 U/L <35 [facility] Albumin [Mass/Vol]Ordered By : Kanwal Lauren on 04-21-2024 Serum or plasma albumin measurement (mass/volume) 3.4 g/dL 3.4-4.8 [facility] Albumin/Globulin [Mass ratio ]Ordered By: Kanwal Lauren on 04-21-2024 Serum or plasma albumin/globulin mass ratio 1.4 RATIO 0.9-2.4 [facility] Basic Metabolic Profile (BMP )on 04-21-2024 BUN/CRE 36.5 RATIO High 10-20 [facility] Comment on above: Performed By: #### L 500.2500 ####[facility] [address] [place], [address] Calcium [Mass/Vol] 8.0 mg/dL Normal 7.6-11.0 [facility] Comment on above: Performed By: #### L 500.2500 ####[facility] [address] [place], [address] Chloride [Moles/Vol] 118 mmol/L High 98-108 [facility] Comment on above: Performed By: #### L 500.2500 ####[facility] [address] [place], [address] CO2 [Moles/Vol] 20.1 mmol/L Low 21.0-32.0 [facility] Comment on above: Performed By: #### L 500.2500 ####[facility] [address] [place], [address] Creatinine [Mass/Vol] 0.93 mg/dL Normal 0.70-1.20 [facility] Comment on above: Performed By: #### L 500.2500 ####[facility] [address] [place], [address] ECRCL 54.74 ml/min Normal 50-250 [facility] Comment on above: Performed By: #### L 500.2500 ####[facility] [address] [place], [address] GAP 10 Normal 5-15 [facility] Comment on above: Performed By: #### L 500.2500 ####[facility] [address] [place], [address] GFR/1.73 sq M.predicted among non-blacks MDRD (S/P/Bld) [Vol rate/Area] 66 mL/min/{1.73_m2} Normal >60 [facility] Comment on above: Result Comment: mL/m in/1.73m2 CKD-EPI Creatinine Equation (2020) Performed By: #### L 500.2500 ####[facility] [address] [place], [address] Glucose [Mass/Vol] 104 mg/dL High 70-99 [facility] Comment on above: Performed By: #### L 500.2500 ####[facility] [address] [place], [address] Potassium [Moles/Vol] 3.4 mmol/L Normal 3.3-5.1 [facility] Comment on above: Performed By: #### L 500.2500 ####[facility] [address] [place], [address] Sodium [Moles/Vol] 148 mmol/L High 133-145 [facility] Comment on above: Performed By: #### L 500.2500 ####[facility] [address] [place], [address] Urea nitrogen [Mass/Vol] 34 mg/dL High 4-19 [facility] Comment on above: Performed By: #### L 500.2500 ####[facility] [address] [place], [address] Bedside Glucoseon 04-21-2024 FINGERSTICK GLU 84 mg/dL Normal 74-106 [facility] Comment on above: Result Comment: GERALDO GEMENT OF PATIENT CARE PER NURSING PROTOCOL Performed By: #### L 501.080 ####[facility] [address] [place], [address] FINGERSTICK GLU 89 mg/dL Normal 74-106 [facility] Comment on above: Result Comment: GERALDO HEENT OF PATIENT CARE PER NURSING PROTOCOL Performed By: #### L 501.080 ####[facility] [address] [place], [address] FINGERSTICK GLU 122 mg/dL High 74-106 [facility] Comment on above: Result Comment: GERALDO BEGUM OF PATIENT CARE PER NURSING PROTOCOL Performed By: #### L 501.080 ####[facility] [address] [place], [address] Bilirubin, totalOrdered By: Kanwal Aguilar on 04-21-2024 Bilirubin, total 0.43 mg/dL 0.00-1.30 [facility] CBC W/Diff, Automatedon 04-12 Absolute Lymph 1.85 X10 3/uL Normal 0.83-4.51 [facility] Comment on above: Performed By: #### L 100.0100, L500.4050 ####[facility] [address] [place], [address] Absolute Neut 13.0 X10 3/uL High 2.0-7.7 [facility] Comment on above: Performed By: #### L 100.0100, L500.4050 ####[facility] [address] [place], [address] Basophils/100 WBC (Bld) 0.1 % Normal 0-1 [facility] Comment on above: Performed By: #### L 100.0100, L500.4050 ####[facility] [address] [place], [address] Eosinophils/100 WBC (Bld) 0.2 % Normal 0-5 [facility] Comment on above: Performed By: #### L 100.0100, L500.4050 ####[facility] [address] [place], [address] Erythrocyte distribution width (RBC) [Ratio] 13.2 % Normal 11.6-14.6 [facility] Comment on above: Performed By: #### L 100.0100, L500.4050 ####[facility] [address] [place], [address] Hematocrit (Bld) [Volume fraction] 39.1 % Normal 37-47 [facility] Comment on above: Performed By: #### L 100.0100, L500.4050 ####[facility] [address] [place], [address] Hemoglobin (Bld) [Mass/Vol] 12.5 g/dL Normal 12.0-15.0 [facility] Comment on above: Performed By: #### L 100.0100, L500.4050 ####[facility] [address] [place], [address] IG% 0.600 Normal 0.0-0.9 [facility] Comment on above: Result Comment: IG% - Immature Granulocytes (promyelocytes, myelocytes andmetamyelocytes) > 1% indicates that a LEFT SHIFT is Present. Performed By: #### L 100.0100, L500.4050 ####[facility] [address] [place], [address] Lymphocytes/100 WBC (Bld) 11.4 % Low 19-41 [facility] Comment on above: Performed By: #### L 100.0100, L500.4050 ####[facility] [address] [place], [address] MCH (RBC) [Entitic mass] 29.1 pg Normal 27.0-32.0 [facility] Comment on above: Performed By: #### L 100.0100, L500.4050 ####[facility] [address] [place], [address] MCHC (RBC) [Mass/Vol] 32.0 g/dL Normal 32-36 [facility] Comment on above: Performed By: #### L 100.0100, L500.4050 ####[facility] [address] [place], [address] MCV (RBC) [Entitic vol] 91.1 fL Normal 81-99 [facility] Comment on above: Performed By: #### L 100.0100, L500.4050 ####[facility] [address] [place], [address] Monocytes/100 WBC (Bld) 7.8 % Normal 0-10 [facility] Comment on above: Performed By: #### L 100.0100, L500.4050 ####[facility] [address] [place], [address] Neutrophils/100 WBC (Bld) 79.9 % High 47-70 [facility] Comment on above: Performed By: #### L 100.0100, L500.4050 ####[facility] [address] [place], [address] Nucleated RBC (Bld) [#/Vol] 0 10*3/uL Normal 0-5 [facility] Comment on above: Performed By: #### L 100.0100, L500.4050 ####[facility] [address] [place], [address] Platelet mean volume (Bld) [Entitic vol] 9.8 fL Normal 6.2-12.0 [facility] Comment on above: Performed By: #### L 100.0100, L500.4050 ####[facility] [address] [place], [address] Platelets (Bld) [#/Vol] 237 10*3/uL Normal 150-450 [facility] Comment on above: Performed By: #### L 100.0100, L500.4050 ####[facility] [address] [place], [address] RBC (Bld) [#/Vol] 4.29 10*6/uL Normal 4.2-5.4 [facility] Comment on above: Performed By: #### L 100.0100, L500.4050 ####[facility] [address] [place], [address] RDW SD 44.0 fl High 35.1-43.9 [facility] Comment on above: Performed By: #### L 100.0100, L500.4050 ####[facility] [address] [place], [address] WBC (Bld) [#/Vol] 16.2 10*3/uL High 4.4-11.0 [facility] Comment on above: Performed By: #### L 100.0100, L500.4050 ####[facility] [address] [place], [address] CK [Catalytic activity/Vol]O rdered By: Kanwal Aguilar on 04-21-2024 Serum or plasma creatine kinase activity 239 U/L High 24-195 [facility] CPK Total, Creatine Kinaseon 04-21-2024 CPK TOTAL 239 U/L High 24-195 [facility] Comment on above: Performed By: #### L 501.3620 ####[facility] [address] [place], [address] Comprehensive Metabolic Prof ilon 04-21-2024 Albumin [Mass/Vol] 3.4 g/dL Normal 3.4-4.8 [facility] Comment on above: Performed By: #### L 100.0100, L500.4050 ####[facility] [address] [place], [address] Albumin/Globulin [Mass ratio] 1.4 {ratio} Normal 0.9-2.4 [facility] Comment on above: Performed By: #### L 100.0100, L500.4050 ####[facility] [address] [place], [address] ALK PHOS 76 U/L Normal 35-104 [facility] Comment on above: Performed By: #### L 100.0100, L500.4050 ####[facility] [address] [place], [address] ALT [Catalytic activity/Vol] 20 U/L Normal <=34 [facility] Comment on above: Performed By: #### L 100.0100, L500.4050 ####[facility] [address] [place], [address] AST [Catalytic activity/Vol] 32 U/L Normal <=31 [facility] Comment on above: Performed By: #### L 100.0100, L500.4050 ####[facility] [address] [place], [address] Bilirubin [Mass/Vol] 0.43 mg/dL Normal 0.00-1.30 [facility] Comment on above: Performed By: #### L 100.0100, L500.4050 ####[facility] [address] [place], [address] BUN/CRE 36.7 RATIO High 10-20 [facility] Comment on above: Performed By: #### L 100.0100, L500.4050 ####[facility] [address] [place], [address] Calcium [Mass/Vol] 8.5 mg/dL Normal 7.6-11.0 [facility] Comment on above: Performed By: #### L 100.0100, L500.4050 ####[facility] [address] [place], [address] Chloride [Moles/Vol] 115 mmol/L High 98-108 [facility] Comment on above: Performed By: #### L 100.0100, L500.4050 ####[facility] [address] [place], [address] CO2 [Moles/Vol] 15.4 mmol/L Low 21.0-32.0 [facility] Comment on above: Performed By: #### L 100.0100, L500.4050 ####[facility] [address] [place], [address] Creatinine [Mass/Vol] 1.27 mg/dL High 0.70-1.20 [facility] Comment on above: Performed By: #### L 100.0100, L500.4050 ####[facility] [address] [place], [address] ECRCL 40.08 ml/min Low 50-250 [facility] Comment on above: Performed By: #### L 100.0100, L500.4050 ####[facility] [address] [place], [address] GAP 16 High 5-15 [facility] Comment on above: Performed By: #### L 100.0100, L500.4050 ####[facility] [address] [place], [address] GFR/1.73 sq M.predicted among non-blacks MDRD (S/P/Bld) [Vol rate/Area] 45 mL/min/{1.73_m2} Low >60 [facility] Comment on above: Result Comment: mL/m in/1.73m2 CKD-EPI Creatinine Equation (2020) Performed By: #### L 100.0100, L500.4050 ####[facility] [address] [place], [address] Globulin (S) [Mass/Vol] 2.4 g/dL Normal 2.2-4.2 [facility] Comment on above: Performed By: #### L 100.0100, L500.4050 ####[facility] [address] [place], [address] Glucose [Mass/Vol] 142 mg/dL High 70-99 [facility] Comment on above: Performed By: #### L 100.0100, L500.4050 ####[facility] [address] [place], [address] Potassium [Moles/Vol] 3.7 mmol/L Normal 3.3-5.1 [facility] Comment on above: Performed By: #### L 100.0100, L500.4050 ####[facility] [address] [place], [address] Sodium [Moles/Vol] 146 mmol/L High 133-145 [facility] Comment on above: Performed By: #### L 100.0100, L500.4050 ####[facility] [address] [place], [address] T PROT 5.8 g/dL Low 5.9-8.4 [facility] Comment on above: Performed By: #### L 100.0100, L500.4050 ####[facility] [address] [place], [address] Urea nitrogen [Mass/Vol] 47 mg/dL High 4-19 [facility] Comment on above: Performed By: #### L 100.0100, L500.4050 ####[facility] [address] [place], [address] Echocardiogram study reportO rdered By: Tiffanie Jimenez on 04-21-2024 Study report [facility] Work Phone: Electrocardiogram reportOrde red By: Sharita Azar on 04-21-2024 EKG study [facility] Work Phone: [phone] 04-21-2024 BETA-HYDROXYBUT 1.0 mmol/L Normal 0.0-0.3 [facility] Comment on above: Performed By: #### L 501.6901 ####[facility] [address] [place], [address] BETA-HYDROXYBUT 3.5 mmol/L Normal 0.0-0.3 [facility] Comment on above: Order Comment: Comme nts: may add to ED labs Performed By: #### L 501.5200, L501.6901, L501.2300 ####[facility] [address] [place], [address] Lactic Acidon 04-21-2024 Lactate [Moles/Vol] 2.1 mmol/L High 0.0-2.0 [facility] Comment on above: Order Comment: Y Performed By: #### L 503.6005 ####[facility] [address] [place], [address] Lactic acid measurementOrder ed By: Alden Finn on 04-21-2024 Lactic acid measurement 2.1 mmol/L High 0.0-2.0 [facility] Magnesiumon 04-21-2024 Magnesium [Mass/Vol] 2.1 mg/dL Normal 1.5-2.2 [facility] Comment on above: Order Comment: Comme nts: may add to ED labs Performed By: #### L 501.5200, L501.6901, L501.2300 ####[facility] [address] [place], [address] No Panel InformationOrdered By: Kanwal Aguilar on 04-21-2024 32 U/L <32 [facility] No Panel InformationOrdered By: Atul Quezada on 04-21-2024 1.0 mmol/L 0.0-0.3 [facility] Phosphoruson 04-21-2024 Phosphate [Mass/Vol] 2.2 mg/dL Low 2.7-4.5 [facility] Comment on above: Order Comment: Comme nts: may add to ED labs Performed By: #### L 501.5200, L501.6901, L501.2300 ####[facility] [address] [place], [address] Serum globulin measurementOr dered By: Kanwal Aguilar on 04-21-2024 Serum globulin measurement 2.4 g/dL 2.2-4.2 [facility] Total proteinOrdered By: Luciana Aguilar on 04-21-2024 Total protein 5.8 g/dL Low 5.9-8.4 [facility] 12 Lead EKGon 04-20-2024 12 Lead EKG Normal [facility] ALP [Catalytic activity/Vol] Ordered By: Monica Alvarado on 04-20-2024 Serum or plasma alkaline phosphatase measurement 114 U/L High 35-104 [facility] ALT [Catalytic activity/Vol] Ordered By: Monica Alvarado on 04-20-2024 Serum or plasma alanine aminotransferase (ALT) measurement 25 U/L <35 [facility] Abdomen/Pelvis without Conto n 04-20-2024 Abdomen/Pelvis without Cont Normal [facility] Absolute neutrophil countOrd ered By: Monica Alvarado on 04-20-2024 Absolute neutrophil count 21.6 X10^3/uL High 2.0-7.7 [facility] Albumin [Mass/Vol]Ordered By : Monica Alvarado on 04-20-2024 Serum or plasma albumin measurement (mass/volume) 4.5 g/dL 3.4-4.8 [facility] Albumin/Globulin [Mass ratio ]Ordered By: Monica Alvarado on 04-20-2024 Serum or plasma albumin/globulin mass ratio 1.2 RATIO 0.9-2.4 [facility] Anion gap [Moles/Vol]Ordered By: Monica Alvarado on 04-20-2024 Anion gap in Serum or Plasma 29 High 5-15 [facility] Arterial patency Wrist arter y --pre arterial punctureOrdered By: Kanwal Aguilar on 04-20-2024 Assessment of wrist artery patency prior to arterial puncture Positive [facility] BUN/creatinine ratioOrdered By: Monica Alvarado on 04-20-2024 BUN/creatinine ratio 29.9 RATIO High 10-20 [facility] Bacteria LM.HPF (Urine sed) [#/Area]Ordered By: Monica Alvarado on 04-20-2024 Urine sediment bacteria count by microscopy (number/high power field) 2+ /hpf None Seen [facility] Base excess Calc (BldV) [Mol es/Vol]Ordered By: Kanwal Aguilar on 04-20-2024 Blood base excess determination -4 mmol/L Low -2-2 [facility] Basophil percentageOrdered B y: Monica Christiano on 04-20-2024 Basophil percentage 0.1 % 0-1 [facility] Bedside Glucoseon 04-20-2024 FINGERSTICK GLU 145 mg/dL High 74-106 [facility] Comment on above: Result Comment: GERALDO GEMENT OF PATIENT CARE PER NURSING PROTOCOL Performed By: #### L 501.080 ####[facility] [address] [place], [address] FINGERSTICK GLU 194 mg/dL High 74-106 [facility] Comment on above: Result Comment: GEARLDO GEMENT OF PATIENT CARE PER NURSING PROTOCOL Performed By: #### L 501.080 ####[facility] [address] [place], [address] Bilirubin Test strip Ql (U)O rdered By: Monica Alvarado on 04-20-2024 Urine total bilirubin detection by test strip 1 mg/dL High Negative [facility] Bilirubin, totalOrdered By: Monica Alvarado on 04-20-2024 Bilirubin, total 1.15 mg/dL 0.00-1.30 [facility] Blood Gases by CPSon 025 KYREE TEST Positive Normal [facility] Comment on above: Performed By: #### L 9000.0800 ####[facility] [address] [place], [address] Base excess Calc (Bld) [Moles/Vol] -4 mmol/L Low -2 to +2 [facility] Comment on above: Performed By: #### L 9000.0800 ####[facility] [address] [place], [address] Blood Gas Type ART Normal [facility] Comment on above: Performed By: #### L 9000.0800 ####[facility] [address] [place], [address] CO2 [Moles/Vol] 22 mmol/L Normal [facility] Comment on above: Performed By: #### L 9000.08 ####[facility] [address] [place], [address] FI02 21.0 Normal [facility] Comment on above: Performed By: #### L 8999.0800 ####[facility] [address] [place], [address] HCO3 (Bld) [Moles/Vol] 20.6 mmol/L Low 22-26 [facility] Comment on above: Performed By: #### L 0.0800 ####[facility] [address] [place], [address] Mode Not entered [facility] Comment on above: Performed By: #### L 0.08 ####[facility] [address] [place], [address] O2 Delivery Dev Room Air [facility] Comment on above: Performed By: #### L 0.0800 ####[facility] [address] [place], [address] pCO2 30.5 mmHg Low 35-45 [facility] Comment on above: Performed By: #### L 0.08 ####[facility] [address] [place], [address] pH (Bld) 7.44 [pH] Normal 7.35-7.45 [facility] Comment on above: Performed By: #### L 0.0800 ####[facility] [address] [place], [address] PO2 70 mmHG Low 75-100 [facility] Comment on above: Performed By: #### L 0.0800 ####[facility] [address] [place], [address] SITE R Brach Normal [facility] Comment on above: Performed By: #### L 0.0800 ####[facility] [address] [place], [address] SO2 95 Normal 95-99 [facility] Comment on above: Performed By: #### L 9000.0800 ####[facility] [address] [place], [address] Blood bicarbonate measuremen tOrdered By: Kanwal Aguilar on 04-20-2024 Blood bicarbonate measurement 20.6 mmol/L Low 22-26 [facility] Blood cultureOrdered By: Kadie Alvarado on 04-20-2024 Blood culture No growth in 5 days. [facility] Blood culture No growth in 5 days. [facility] Brain/Head without Contrasto n 04-20-2024 Brain/Head without Contrast Normal [facility] CBC W/Diff, Automatedon - SMEAR COMMENT SCANNED Normal [facility] Comment on above: Result Comment: NEUT ROPHILIA NOTED Performed By: #### L 503.6005, L300.4310, M200.1000, L500.4050, L300.3900, L501.3620, L100.0100 ####[facility] [address] [place], [address] CK [Catalytic activity/Vol]O rdered By: Monica Alvarado on 04-20-2024 Serum or plasma creatine kinase activity 762 U/L High 24- [facility] CPK Total, Creatine Kinaseon 04-20-2024 CPK TOTAL 762 U/L High 24-195 [facility] Comment on above: Performed By: #### L 503.6005, L300.4310, M200.1000, L500.4050, L300.3900, L501.3620, L100.0100 ####[facility] [address] [place], [address] Calcium [Mass/Vol]Ordered By : Monica Alvarado on 04-20-2024 Serum or plasma calcium measurement (mass/volume) 10.7 mg/dL 7.6-11.0 [facility] Carbon dioxide, total [Moles /volume] in Central venous bloodOrdered By: Monica Alvarado on 04-20-2024 Carbon dioxide, total [Moles/volume] in Central venous blood 12.2 mmol/L Low 21.0-32.0 [facility] Chest without Contraston Chest without Contrast Normal [facility] Chloride assayOrdered By: Eleni Alvarado on 04-20-2024 Chloride assay 103 mmol/L 98-108 [facility] Clarity (U)Ordered By: Monica Alvarado on 04-20-2024 Urine clarity Sl. Cloudy Clear [facility] Color (U)Ordered By: Monica goddard on 04-20-2024 Urine color determination Yellow Yellow [facility] Comprehensive Metabolic Prof ilon 04-20-2024 Albumin [Mass/Vol] 4.5 g/dL Normal 3.4-4.8 [facility] Comment on above: Performed By: #### L 503.6005, L300.4310, M200.1000, L500.4050, L300.3900, L501.3620, L100.0100 ####[facility] [address] [place], [place], [address] Albumin/Globulin [Mass ratio] 1.2 {ratio} Normal 0.9-2.4 [facility] Comment on above: Performed By: #### L 503.6005, L300.4310, M200.1000, L500.4050, L300.3900, L501.3620, L100.0100 ####[facility] [address] [place], [address] ALK PHOS 114 U/L High 35-104 [facility] Comment on above: Performed By: #### L 503.6005, L300.4310, M200.1000, L500.4050, L300.3900, L501.3620, L100.0100 ####[facility] [address] [place], [address] ALT [Catalytic activity/Vol] 25 U/L Normal <=34 [facility] Comment on above: Performed By: #### L 503.6005, L300.4310, M200.1000, L500.4050, L300.3900, L501.3620, L100.0100 ####[facility] [address] [place], [address] AST [Catalytic activity/Vol] 70 U/L High <=31 [facility] Comment on above: Performed By: #### L 503.6005, L300.4310, M200.1000, L500.4050, L300.3900, L501.3620, L100.0100 ####[facility] [address] [place], [address] Bilirubin [Mass/Vol] 1.15 mg/dL Normal 0.00-1.30 [facility] Comment on above: Performed By: #### L 503.6005, L300.4310, M200.1000, L500.4050, L300.3900, L501.3620, L100.0100 ####[facility] [address] [place], [address] BUN/CRE 29.9 RATIO High 10-20 [facility] Comment on above: Performed By: #### L 503.6005, L300.4310, M200.1000, L500.4050, L300.3900, L501.3620, L100.0100 ####[facility] [address] [place], [address] Calcium [Mass/Vol] 10.7 mg/dL Normal 7.6-11.0 [facility] Comment on above: Performed By: #### L 503.6005, L300.4310, M200.1000, L500.4050, L300.3900, L501.3620, L100.0100 ####[facility] [address] [place], [address] Chloride [Moles/Vol] 103 mmol/L Normal 98-108 [facility] Comment on above: Performed By: #### L 503.6005, L300.4310, M200.1000, L500.4050, L300.3900, L501.3620, L100.0100 ####[facility] [address] [place], [address] CO2 [Moles/Vol] 12.2 mmol/L Low 21.0-32.0 [facility] Comment on above: Performed By: #### L 503.6005, L300.4310, M200.1000, L500.4050, L300.3900, L501.3620, L100.0100 ####[facility] [address] [place], [address] Creatinine [Mass/Vol] 1.57 mg/dL High 0.70-1.20 [facility] Comment on above: Performed By: #### L 503.6005, L300.4310, M200.1000, L500.4050, L300.3900, L501.3620, L100.0100 ####[facility] [address] [place], [address] ECRCL 30.00 ml/min Low 50-250 [facility] Comment on above: Performed By: #### L 503.6005, L300.4310, M200.1000, L500.4050, L300.3900, L501.3620, L100.0100 ####[facility] [address] [place], [address] GAP 29 High 5-15 [facility] Comment on above: Performed By: #### L 503.6005, L300.4310, M200.1000, L500.4050, L300.3900, L501.3620, L100.0100 ####[facility] [address] [place], [address] GFR/1.73 sq M.predicted among non-blacks MDRD (S/P/Bld) [Vol rate/Area] 35 mL/min/{1.73_m2} Low >60 [facility] Comment on above: Result Comment: mL/m in/1.73m2 CKD-EPI Creatinine Equation (2020) Performed By: #### L 503.6005, L300.4310, M200.1000, L500.4050, L300.3900, L501.3620, L100.0100 ####[facility] [address] [place], [address] Globulin (S) [Mass/Vol] 3.6 g/dL Normal 2.2-4.2 [facility] Comment on above: Performed By: #### L 503.6005, L300.4310, M200.1000, L500.4050, L300.3900, L501.3620, L100.0100 ####[facility] [address] [place], [address] Glucose [Mass/Vol] 231 mg/dL High 70-99 [facility] Comment on above: Performed By: #### L 503.6005, L300.4310, M200.1000, L500.4050, L300.3900, L501.3620, L100.0100 ####[facility] [address] [place], [address] Potassium [Moles/Vol] 4.0 mmol/L Normal 3.3-5.1 [facility] Comment on above: Result Comment: Hemo lysis present, Results??could be affected.?? Performed By: #### L 503.6005, L300.4310, M200.1000, L500.4050, L300.3900, L501.3620, L100.0100 ####[facility] [address] [place], [address] Sodium [Moles/Vol] 144 mmol/L Normal 133-145 [facility] Comment on above: Performed By: #### L 503.6005, L300.4310, M200.1000, L500.4050, L300.3900, L501.3620, L100.0100 ####[facility] [address] [place], [place], [address] T PROT 8.1 g/dL Normal 5.9-8.4 [facility] Comment on above: Performed By: #### L 503.6005, L300.4310, M200.1000, L500.4050, L300.3900, L501.3620, L100.0100 ####[facility] [address] [place], [place], [id number] Urea nitrogen [Mass/Vol] 47 mg/dL High 4-19 [facility] Comment on above: Performed By: #### L 503.6005, L300.4310, M200.1000, L500.4050, L300.3900, L501.3620, L100.0100 ####[facility] [address] [place], [place], [id number] Consultation - Intensiviston 04-20-2024 Consultation - Color Separation Photographer Normal [facility] Creatinine [Mass/Vol]Ordered By: Monica Alvarado on 04-20-2024 Serum creatinine measurement (mass/volume) 1.57 mg/dL High 0.70-1.20 [facility] Determination of fraction of inspired oxygenOrdered By: Kanwal Aguilar on 04-20-2024 Determination of fraction of inspired oxygen 21.0 [facility] Echo Completeon 04-20-2024 Echo Complete Normal [facility] Emergency Department Summary on 04-20-2024 Emergency Department Summary Normal [facility] Eosinophil percentageOrdered By: Monica Alvarado on 04-20-2024 Eosinophil percentage 0.0 % 0-5 [facility] Erythrocyte distribution wid th (RBC) [Entitic vol]Ordered By: Monica Alvarado on 04-20-2024 Erythrocyte distribution width standard deviation 40.4 fl 35.1-43.9 [facility] Erythrocyte distribution wid th (RBC) [Ratio]Ordered By: Monica Alvarado on 04-20-2024 Erythrocyte distribution width ratio 13.0 % 11.6-14.6 [facility] Estimation of creatinine maribel aranceOrdered By: Monica Alvarado on 04-20-2024 Estimation of creatinine clearance 30.00 ml/min Low 50-250 [facility] GFR/1.73 sq M.predicted shorty g non-blacks MDRD (S/P/Bld) [Vol rate/Area]Ordered By: Monica Alvarado on 04-20-2024 Glomerular filtration rate (GFR) estimation/1.73 sq m using serum, plasma, or whole b 35 Low >60 [facility] Glucose [Mass/Vol]Ordered By : Monica Alvarado on 04-20-2024 Serum glucose measurement (mass/volume) 231 mg/dL High 70-99 [facility] Glucose measurement at bedsi deOrdered By: Joe Preston on 04-20-2024 Glucose measurement at bedside 194 mg/dL High 74-106 [facility] H AND P Exam - Hospitaliston 04-20-2024 H&P Exam - Hospitalist Normal [facility] Hematocrit Auto (Bld) [Volum e fraction]Ordered By: Monica Alvarado on 04-20-2024 Automated blood hematocrit (percentage) 51.0 % High 37-47 [facility] Hemoglobin measurementOrdere d By: Monica Alvarado on 04-20-2024 Hemoglobin measurement 17.1 g/dL High 12.0-15.0 [facility] Immature granulocytes/100 WB C Auto (Bld)Ordered By: Monica Alvarado on 04-20-2024 Automated immature granulocyte percentage 0.800 % 0.0-0.9 [facility] International normalized rat io (INR) calculationOrdered By: Monica Alvarado on 04-20-2024 International normalized ratio (INR) calculation 1.2 [facility] Ketones Test strip Ql (U)Ord ered By: Monica Alvarado on 04-20-2024 Urine ketones detection by test strip 50 mg/dl High Negative [facility] Lactic Acidon 04-20-2024 Lactate [Moles/Vol] 3.0 mmol/L Invalid Interpretation Code 0.0-2.0 [facility] Comment on above: Order Comment: Y Result Comment: Crit ical Result(s) Called to Candace VILLASENOR (ER): Allison:??Results read back by same. Performed By: #### L 503.6005, L300.4310, M200.1000, L500.4050, L300.3900, L501.3620, L100.0100 ####[facility] [address] [place], [address] Lactic acid measurementOrder ed By: Monica Alvarado on 04-20-2024 Lactic acid measurement 3.0 mmol/L High 0.0-2.0 [facility] Leukocyte esterase Test stri p Ql (U)Ordered By: Monica Alvarado on 04-20-2024 Urine leukocyte esterase detection by dipstick 100 /ul High Negative [facility] Lymphocytes Auto (Unsp spec) [#/Vol]Ordered By: Monica Alvarado on 04-20-2024 Absolute lymphocyte count 1.72 X10^3/uL 0.83-4.51 [facility] Lymphocytes/100 WBC Auto (Un sp spec)Ordered By: Monica Alvarado on 04-20-2024 Automated lymphocyte count as percentage of total leukocytes 6.9 % Low 19-41 [facility] M100.678on 04-20-2024 M100.678 Pending SARS-CoV-2 (COVID 19) Negative INFLUENZA A Negative INFLUENZA B Negative RSV PCR Negative Normal [facility] Comment on above: Performed By: #### M 100.2200, M100.678, L400.0001 ####[facility] [address] [place], [address] M8200.1000on 04-20-2024 M8200.1000 Normal Reference Ran ge = Negative MRSA DNA Nose Ql MARILEE+probe GeneXpert Instrument, PCR method MRSA PCR MRSA NEGATIVE Normal [facility] Comment on above: Performed By: #### M 8200.1000 ####[facility] [address] [place], [address] MCV (RBC) [Entitic vol]Order ed By: Monica Alvarado on 04-20-2024 MCV (mean corpuscular volume) determination 86.6 fL 81-99 [facility] Magnesium (Unsp spec) [Mass/ Vol]Ordered By: Kanwal Aguilar on 04-20-2024 Magnesium measurement (mass/volume) 2.1 mg/dL 1.5-2.2 [facility] Manual differential comment Minesh (Bld) [Interp]Ordered By: Monica Alvarado on 04-20-2024 Blood manual differential comment interpretation (narrative result) SCANNED [facility] Mean corpuscular hemoglobin (MCH) determinationOrdered By: Monica Alvarado on 04-20-2024 Mean corpuscular hemoglobin (MCH) determination 29.0 pg 27.0-32.0 [facility] Mean corpuscular hemoglobin concentration (MCHC) determinationOrdered By: Monica Alvarado on 04-20-2024 Mean corpuscular hemoglobin concentration (MCHC) determination 33.5 g/dL 32-36 [facility] Mean platelet volume determi nationOrdered By: Monica Alvarado on 04-20-2024 Mean platelet volume determination 9.6 fl 6.2-12.0 [facility] Microscopic analysis of urin e for red blood cells (RBC)Ordered By: Monica Alvarado on 04-20-2024 Microscopic analysis of urine for red blood cells (RBC) 0-5 SEEN /hpf 5-10 [facility] Monocyte percentageOrdered B y: Monica Alvarado on 04-20-2024 Monocyte percentage 5.6 % 0-10 [facility] Mucus LM Ql (Urine sed)Order ed By: Monica Alvarado on 04-20-2024 Mucus detection in urine sediment by light microscopy 1+ /hpf [facility] Neutrophil percentageOrdered By: Monica Alvarado on 04-20-2024 Neutrophil percentage 86.6 % High 47-70 [facility] Nitrite Test strip Ql (U)Ord ered By: Monica Alvarado on 04-20-2024 Urine nitrite test by dipstick Negative Negative [facility] No Panel InformationOrdered By: Kanwal Aguilar on 04-20-2024 ART [facility] R Brach [facility] Not entered [facility] Room Air [facility] No Panel InformationOrdered By: Monica Alvarado on 04-20-2024 70 U/L High <32 [facility] Nucleated red blood cell per centageOrdered By: Monica Alvarado on 04-20-2024 Nucleated red blood cell percentage 0 % 0-5 [facility] Oxygen saturation measuremen tOrdered By: Kanwal Aguilar on 04-20-2024 Oxygen saturation measurement 95 % 95-99 [facility] Partial Thromboplast Timeon 04-20-2024 aPTT Coag (Bld) [Time] 25.1 s Normal 24.1-36.2 [facility] Comment on above: Performed By: #### L 503.6005, L300.4310, M200.1000, L500.4050, L300.3900, L501.3620, L100.0100 ####[facility] [address] [place], [address] Partial pressure of carbon d ioxide measurementOrdered By: Kanwal Aguilar on 04-20-2024 Partial pressure of carbon dioxide measurement 30.5 mmHg Low 35-45 [facility] Partial pressure of oxygen m easurementOrdered By: Kanwal Aguilar on 04-20-2024 Partial pressure of oxygen measurement 70 mmHG Low 75-100 [facility] Pelvis 1 or 2 Viewson 2024 Pelvis 1 or 2 Views Normal [facility] Platelet countOrdered By: Eleni Alvarado on 04-20-2024 Platelet count 359 K/mm3 150-450 [facility] Potassium (Unsp spec) [Mass/ Vol]Ordered By: Monica Alvarado on 04-20-2024 Potassium measurement (mass/volume) 4.0 mmol/L 3.3-5.1 [facility] Protein Test strip Ql (U)Ord ered By: Monica Alvarado on 04-20-2024 Urine protein assay by test strip, semi-quantitative 500 mg/dl High Negative [facility] Prothrombin Time w/INRon INR Coag (PPP) [Relative time] 1.2 {INR} Normal [facility] Comment on above: Performed By: #### L 503.6005, L300.4310, M200.1000, L500.4050, L300.3900, L501.3620, L100.0100 ####[facility] [address] [place], [address] PT Coag (PPP) [Time] 15.1 s High 11.7-14.9 [facility] Comment on above: Performed By: #### L 503.6005, L300.4310, M200.1000, L500.4050, L300.3900, L501.3620, L100.0100 ####[facility] [address] [place], [address] Prothrombin timeOrdered By: Monica Alvarado on 04-20-2024 Prothrombin time 15.1 SECONDS High 11.7-14.9 [facility] RBC Auto (Bld) [#/Vol]Ordere d By: Monica Alvarado on 04-20-2024 Automated blood erythrocyte count 5.89 M/mm3 High 4.2-5.4 [facility] Serum globulin measurementOr dered By: Monica Alvarado on 04-20-2024 Serum globulin measurement 3.6 g/dL 2.2-4.2 [facility] Serum phosphorus measurement Ordered By: Kanwal Aguilar on 04-20-2024 Serum phosphorus measurement 2.2 mg/dL Low 2.7-4.5 [facility] Sodium levelOrdered By: Monica Alvarado on 04-20-2024 Sodium level 144 mmol/L 133-145 [facility] Specific gravity (U) [Rel de nsity]Ordered By: Monica Alvarado on 04-20-2024 Urine specific gravity measurement 1.020 1.002-1.030 [facility] Spine Cervical without Contr ason 04-20-2024 Spine Cervical without Contras Normal [facility] Total carbon dioxide measure mentOrdered By: Kanwal Aguilar on 04-20-2024 Total carbon dioxide measurement 22 mmol/L [facility] Total proteinOrdered By: Kadie Alvarado on 04-20-2024 Total protein 8.1 g/dL 5.9-8.4 [facility] Urea nitrogen [Mass/Vol]Orde red By: Monica Alvarado on 04-20-2024 Serum or plasma urea nitrogen measurement (mass/volume) 47 mg/dL High 4-19 [facility] Urinalysis, Completeon 04-20 BACTERIA 2+ /hpf Normal None Seen [facility] Comment on above: Order Comment: DAYAN CTOR TO SPECIFY Performed By: #### M 100.2200, M100.678, L400.0001 ####[facility] [address] [place], [address] EPI,SQUAMOUS 0-5 SEEN Normal 5-10 [facility] Comment on above: Order Comment: DAYAN CTOR TO SPECIFY Performed By: #### M 100.2200, M100.678, L400.0001 ####[facility] [address] [place], [address] Mucus Ql (Urine sed) 1+ /hpf Normal [facility] Comment on above: Order Comment: DAYAN CTOR TO SPECIFY Performed By: #### M 100.2200, M100.678, L400.0001 ####[facility] [address] [place], [address] RBC 0-5 SEEN Normal 0-5 [facility] Comment on above: Order Comment: DAYAN CTOR TO SPECIFY Performed By: #### M 100.2200, M100.678, L400.0001 ####[facility] [address] [place], [address] WBC 10-25 SEEN Normal 0-5 [facility] Comment on above: Order Comment: DAYAN CTOR TO SPECIFY Performed By: #### M 100.2200, M100.678, L400.0001 ####[facility] [address] [place], [address] Urine blood detectionOrdered By: Monica Alvarado on 04-20-2024 Urine blood detection 250 /ul High Negative [facility] Urine cultureOrdered By: Kadie Alvarado on 04-20-2024 Urine culture Enterococcus faecalis Abnormal [facility] Urine culture Staphylococcus simulans Abnormal [facility] Urine culture Staphylococcus aureus Abnormal [facility] Urine glucose detectionOrder ed By: Monica Alvarado on 04-20-2024 Urine glucose detection Normal mg/dl Normal [facility] White blood cell (WBC) count Ordered By: Monica Alvarado on 04-20-2024 White blood cell (WBC) count 25.0 K/mm3 High 4.4-11.0 [facility] White blood cell countOrdere d By: Monica Alvarado on 04-20-2024 White blood cell count 10-25 SEEN /hpf 0-5 [facility] aPTT Coag (PPP) [Time]Ordere d By: Moniac Alvarado on 04-20-2024 Activated partial thromboplastin time (aPTT) in platelet poor plasma by coagulation a 25.1 Seconds 24.1-36.2 [facility] pH (U)Ordered By: Monica garsia on 04-20-2024 Urine pH 5.0 5.0 - 8.0 [facility] pH (Unsp spec)Ordered By: Ananya Aguilar on 04-20-2024 Measurement, pH 7.44 7.35-7.45 [facility] Basic Metabolic Profile (BMP )on 02-22-2024 BUN Normal 7-18 [facility] Comment on above: Result Comment: Canc elled via OM: Order cancelled - Patient discharged Performed By: #### L 100.0100, L500.2500 ####[facility] [address] [place], [address] BUN/CRE Normal 10-20 [facility] Comment on above: Result Comment: Canc elled via OM: Order cancelled - Patient discharged Performed By: #### L 100.0100, L500.2500 ####[facility] [address] [place], [address] CA,Total Normal 8.5-10.1 [facility] Comment on above: Result Comment: Canc elled via OM: Order cancelled - Patient discharged Performed By: #### L 100.0100, L500.2500 ####[facility] [address] [place], [address] CL Normal 98-107 [facility] Comment on above: Result Comment: Canc elled via OM: Order cancelled - Patient discharged Performed By: #### L 100.0100, L500.2500 ####[facility] [address] [place], [address] CO2 Normal 21.0-32.0 [facility] Comment on above: Result Comment: Canc elled via OM: Order cancelled - Patient discharged Performed By: #### L 100.0100, L500.2500 ####[facility] [address] [place], [address] CREAT,SERUM Normal 0.55-1.02 [facility] Comment on above: Result Comment: Canc elled via OM: Order cancelled - Patient discharged Performed By: #### L 100.0100, L500.2500 ####[facility] [address] [place], [address] EST GFR Normal >60 [facility] Comment on above: Result Comment: Canc elled via OM: Order cancelled - Patient discharged Performed By: #### L 100.0100, L500.2500 ####[facility] [address] [place], [address] EST GFR - AA Normal >60 [facility] Comment on above: Result Comment: Canc elled via OM: Order cancelled - Patient discharged Performed By: #### L 100.0100, L500.2500 ####[facility] [address] [place], [address] GAP Normal 5-15 [facility] Comment on above: Result Comment: Canc elled via OM: Order cancelled - Patient discharged Performed By: #### L 100.0100, L500.2500 ####[facility] [address] [place], [address] GLU Normal 74-106 [facility] Comment on above: Result Comment: Canc elled via OM: Order cancelled - Patient discharged Performed By: #### L 100.0100, L500.2500 ####[facility] [address] [place], [address] Potassium Normal 3.5-5.1 [facility] Comment on above: Result Comment: Canc elled via OM: Order cancelled - Patient discharged Performed By: #### L 100.0100, L500.2500 ####[facility] [address] [place], [address] Basic Metabolic Profile (BMP) Normal 136-145 [facility] Comment on above: Result Comment: Canc elled via OM: Order cancelled - Patient discharged Performed By: #### L 100.0100, L500.2500 ####[facility] [address] [place], [address] CBC W/Diff, Automatedon 01-1 0-2024 Absolute Neut Normal 2.0-7.7 [facility] Comment on above: Result Comment: Canc elled via OM: Order cancelled - Patient discharged Performed By: #### L 100.0100, L500.2500 ####[facility] [address] [place], [address] HCT Normal 37-47 [facility] Comment on above: Result Comment: Canc elled via OM: Order cancelled - Patient discharged Performed By: #### L 100.0100, L500.2500 ####[facility] [address] [place], [address] HGB Normal 12.0-15.0 [facility] Comment on above: Result Comment: Canc elled via OM: Order cancelled - Patient discharged Performed By: #### L 100.0100, L500.2500 ####[facility] [address] [place], [address] MCH Normal 27.0-32.0 [facility] Comment on above: Result Comment: Canc elled via OM: Order cancelled - Patient discharged Performed By: #### L 100.0100, L500.2500 ####[facility] [address] [place], [address] MCHC Normal 32-36 [facility] Comment on above: Result Comment: Canc elled via OM: Order cancelled - Patient discharged Performed By: #### L 100.0100, L500.2500 ####[facility] [address] [place], [address] MCV Normal 81-99 [facility] Comment on above: Result Comment: Canc elled via OM: Order cancelled - Patient discharged Performed By: #### L 100.0100, L500.2500 ####[facility] [address] [place], [address] NEUT% Normal 47-70 [facility] Comment on above: Result Comment: Canc elled via OM: Order cancelled - Patient discharged Performed By: #### L 100.0100, L500.2500 ####[facility] [address] [place], [address] PLT Normal 150-450 [facility] Comment on above: Result Comment: Canc elled via OM: Order cancelled - Patient discharged Performed By: #### L 100.0100, L500.2500 ####[facility] [address] [place], [address] RBC Normal 4.2-5.4 [facility] Comment on above: Result Comment: Canc elled via OM: Order cancelled - Patient discharged Performed By: #### L 100.0100, L500.2500 ####[facility] [address] [place], [address] RDW CV Normal 11.6-14.6 [facility] Comment on above: Result Comment: Canc elled via OM: Order cancelled - Patient discharged Performed By: #### L 100.0100, L500.2500 ####[facility] [address] [place], [address] RDW SD Normal 35.1-43.9 [facility] Comment on above: Result Comment: Canc elled via OM: Order cancelled - Patient discharged Performed By: #### L 100.0100, L500.2500 ####[facility] [address] [place], [address] WBC Normal 4.4-11.0 [facility] Comment on above: Result Comment: Canc elled via OM: Order cancelled - Patient discharged Performed By: #### L 100.0100, L500.2500 ####[facility] [address] [place], [address] Basic Metabolic Profile (BMP )on 02-21-2024 BUN Normal 7-18 [facility] Comment on above: Result Comment: Canc elled via OM: Order cancelled - Patient discharged Performed By: #### L 100.0100, L500.2500 ####[facility] [address] [place] [place], [address] BUN/CRE Normal 10-20 [facility] Comment on above: Result Comment: Canc elled via OM: Order cancelled - Patient discharged Performed By: #### L 100.0100, L500.2500 ####[facility] [address] [place], [address] CA,Total Normal 8.5-10.1 [facility] Comment on above: Result Comment: Canc elled via OM: Order cancelled - Patient discharged Performed By: #### L 100.0100, L500.2500 ####[facility] [address] [place], [address] CL Normal 98-107 [facility] Comment on above: Result Comment: Canc elled via OM: Order cancelled - Patient discharged Performed By: #### L 100.0100, L500.2500 ####[facility] [address] [place], [address] CO2 Normal 21.0-32.0 [facility] Comment on above: Result Comment: Canc elled via OM: Order cancelled - Patient discharged Performed By: #### L 100.0100, L500.2500 ####[facility] [address] [place], [address] CREAT,SERUM Normal 0.55-1.02 [facility] Comment on above: Result Comment: Canc elled via OM: Order cancelled - Patient discharged Performed By: #### L 100.0100, L500.2500 ####[facility] [address] [place], [address] EST GFR Normal >60 [facility] Comment on above: Result Comment: Canc elled via OM: Order cancelled - Patient discharged Performed By: #### L 100.0100, L500.2500 ####[facility] [address] [place], [address] EST GFR - AA Normal >60 [facility] Comment on above: Result Comment: Canc elled via OM: Order cancelled - Patient discharged Performed By: #### L 100.0100, L500.2500 ####[facility] [address] [place], [address] GAP Normal 5-15 [facility] Comment on above: Result Comment: Canc elled via OM: Order cancelled - Patient discharged Performed By: #### L 100.0100, L500.2500 ####[facility] [address] [place], [address] GLU Normal 74-106 [facility] Comment on above: Result Comment: Canc elled via OM: Order cancelled - Patient discharged Performed By: #### L 100.0100, L500.2500 ####[facility] [address] [place], [address] Potassium Normal 3.5-5.1 [facility] Comment on above: Result Comment: Canc elled via OM: Order cancelled - Patient discharged Performed By: #### L 100.0100, L500.2500 ####[facility] [address] [place], [address] Basic Metabolic Profile (BMP) Normal 136-145 [facility] Comment on above: Result Comment: Canc elled via OM: Order cancelled - Patient discharged Performed By: #### L 100.0100, L500.2500 ####[facility] [address] [place], [address] CBC W/Diff, Automatedon 01-0 Absolute Neut Normal 2.0-7.7 [facility] Comment on above: Result Comment: Canc elled via OM: Order cancelled - Patient discharged Performed By: #### L 100.0100, L500.2500 ####[facility] [address] [place], [address] HCT Normal 37-47 [facility] Comment on above: Result Comment: Canc elled via OM: Order cancelled - Patient discharged Performed By: #### L 100.0100, L500.2500 ####[facility] [address] [place], [address] HGB Normal 12.0-15.0 [facility] Comment on above: Result Comment: Canc elled via OM: Order cancelled - Patient discharged Performed By: #### L 100.0100, L500.2500 ####[facility] [address] [place], [address] MCH Normal 27.0-32.0 [facility] Comment on above: Result Comment: Canc elled via OM: Order cancelled - Patient discharged Performed By: #### L 100.0100, L500.2500 ####[facility] [address] [place], [address] MCHC Normal 32-36 [facility] Comment on above: Result Comment: Canc elled via OM: Order cancelled - Patient discharged Performed By: #### L 100.0100, L500.2500 ####[facility] [address] [place], [address] MCV Normal 81-99 [facility] Comment on above: Result Comment: Canc elled via OM: Order cancelled - Patient discharged Performed By: #### L 100.0100, L500.2500 ####[facility] [address] [place], [address] NEUT% Normal 47-70 [facility] Comment on above: Result Comment: Canc elled via OM: Order cancelled - Patient discharged Performed By: #### L 100.0100, L500.2500 ####[facility] [address] [place], [address] PLT Normal 150-450 [facility] Comment on above: Result Comment: Canc elled via OM: Order cancelled - Patient discharged Performed By: #### L 100.0100, L500.2500 ####[facility] [address] [place], [address] RBC Normal 4.2-5.4 [facility] Comment on above: Result Comment: Canc elled via OM: Order cancelled - Patient discharged Performed By: #### L 100.0100, L500.2500 ####[facility] [address] [place], [address] RDW CV Normal 11.6-14.6 [facility] Comment on above: Result Comment: Canc elled via OM: Order cancelled - Patient discharged Performed By: #### L 100.0100, L500.2500 ####[facility] [address] [place], [address] RDW SD Normal 35.1-43.9 [facility] Comment on above: Result Comment: Canc elled via OM: Order cancelled - Patient discharged Performed By: #### L 100.0100, L500.2500 ####[facility] [address] [place], [address] WBC Normal 4.4-11.0 [facility] Comment on above: Result Comment: Canc elled via OM: Order cancelled - Patient discharged Performed By: #### L 100.0100, L500.2500 ####[facility] [address] [place], [address] Basic Metabolic Profile (BMP )on 02-20-2024 BUN Normal 7-18 [facility] Comment on above: Result Comment: Canc elled via OM: Order cancelled - Patient discharged Performed By: #### L 500.2500, L100.0100 ####[facility] [address] [place], [address] BUN/CRE Normal 10-20 [facility] Comment on above: Result Comment: Canc elled via OM: Order cancelled - Patient discharged Performed By: #### L 500.2500, L100.0100 ####[facility] [address] [place], [address] CA,Total Normal 8.5-10.1 [facility] Comment on above: Result Comment: Canc elled via OM: Order cancelled - Patient discharged Performed By: #### L 500.2500, L100.0100 ####[facility] [address] [place], [address] CL Normal 98-107 [facility] Comment on above: Result Comment: Canc elled via OM: Order cancelled - Patient discharged Performed By: #### L 500.2500, L100.0100 ####[facility] [address] [place], [address] CO2 Normal 21.0-32.0 [facility] Comment on above: Result Comment: Canc elled via OM: Order cancelled - Patient discharged Performed By: #### L 500.2500, L100.0100 ####[facility] [address] [place], [address] CREAT,SERUM Normal 0.55-1.02 [facility] Comment on above: Result Comment: Canc elled via OM: Order cancelled - Patient discharged Performed By: #### L 500.2500, L100.0100 ####[facility] [address] [place], [address] EST GFR Normal >60 [facility] Comment on above: Result Comment: Canc elled via OM: Order cancelled - Patient discharged Performed By: #### L 500.2500, L100.0100 ####[facility] [address] [place], [address] EST GFR - AA Normal >60 [facility] Comment on above: Result Comment: Canc elled via OM: Order cancelled - Patient discharged Performed By: #### L 500.2500, L100.0100 ####[facility] [address] [place], [address] GAP Normal 5-15 [facility] Comment on above: Result Comment: Canc elled via OM: Order cancelled - Patient discharged Performed By: #### L 500.2500, L100.0100 ####[facility] [address] [place], [address] GLU Normal 74-106 [facility] Comment on above: Result Comment: Canc elled via OM: Order cancelled - Patient discharged Performed By: #### L 500.2500, L100.0100 ####[facility] [address] [place], [address] Potassium Normal 3.5-5.1 [facility] Comment on above: Result Comment: Canc elled via OM: Order cancelled - Patient discharged Performed By: #### L 500.2500, L100.0100 ####[facility] [address] [place], [address] Basic Metabolic Profile (BMP) Normal 136-145 [facility] Comment on above: Result Comment: Canc elled via OM: Order cancelled - Patient discharged Performed By: #### L 500.2500, L100.0100 ####[facility] [address] [place], [address] CBC W/Diff, Automatedon 0 Absolute Neut Normal 2.0-7.7 [facility] Comment on above: Result Comment: Canc elled via OM: Order cancelled - Patient discharged Performed By: #### L 500.2500, L100.0100 ####[facility] [address] [place], [address] HCT Normal 37-47 [facility] Comment on above: Result Comment: Canc elled via OM: Order cancelled - Patient discharged Performed By: #### L 500.2500, L100.0100 ####[facility] [address] [place], [address] HGB Normal 12.0-15.0 [facility] Comment on above: Result Comment: Canc elled via OM: Order cancelled - Patient discharged Performed By: #### L 500.2500, L100.0100 ####[facility] [address] [place], [address] MCH Normal 27.0-32.0 [facility] Comment on above: Result Comment: Canc elled via OM: Order cancelled - Patient discharged Performed By: #### L 500.2500, L100.0100 ####[facility] [address] [place], [address] MCHC Normal 32-36 [facility] Comment on above: Result Comment: Canc elled via OM: Order cancelled - Patient discharged Performed By: #### L 500.2500, L100.0100 ####[facility] [address] [place], [address] MCV Normal 81-99 [facility] Comment on above: Result Comment: Canc elled via OM: Order cancelled - Patient discharged Performed By: #### L 500.2500, L100.0100 ####[facility] [address] [place], [address] NEUT% Normal 47-70 [facility] Comment on above: Result Comment: Canc elled via OM: Order cancelled - Patient discharged Performed By: #### L 500.2500, L100.0100 ####[facility] [address] [place], [address] PLT Normal 150-450 [facility] Comment on above: Result Comment: Canc elled via OM: Order cancelled - Patient discharged Performed By: #### L 500.2500, L100.0100 ####[facility] [address] [place], [address] RBC Normal 4.2-5.4 [facility] Comment on above: Result Comment: Canc elled via OM: Order cancelled - Patient discharged Performed By: #### L 500.2500, L100.0100 ####[facility] [address] [place], [address] RDW CV Normal 11.6-14.6 [facility] Comment on above: Result Comment: Canc elled via OM: Order cancelled - Patient discharged Performed By: #### L 500.2500, L100.0100 ####[facility] [address] [place], [address] RDW SD Normal 35.1-43.9 [facility] Comment on above: Result Comment: Canc elled via OM: Order cancelled - Patient discharged Performed By: #### L 500.2500, L100.0100 ####[facility] [address] [place], [address] WBC Normal 4.4-11.0 [facility] Comment on above: Result Comment: Canc elled via OM: Order cancelled - Patient discharged Performed By: #### L 500.2500, L100.0100 ####[facility] [address] [place], [address] Basic Metabolic Profile (BMP )on 02-19-2024 BUN Normal 7-18 [facility] Comment on above: Result Comment: Canc elled via OM: Order cancelled - Patient discharged Performed By: #### L 100.0100, L500.2500 ####[facility] [address] [place], [address] BUN/CRE Normal 10-20 [facility] Comment on above: Result Comment: Canc elled via OM: Order cancelled - Patient discharged Performed By: #### L 100.0100, L500.2500 ####[facility] [address] [place], [address] CA,Total Normal 8.5-10.1 [facility] Comment on above: Result Comment: Canc elled via OM: Order cancelled - Patient discharged Performed By: #### L 100.0100, L500.2500 ####[facility] [address] [place], [address] CL Normal 98-107 [facility] Comment on above: Result Comment: Canc elled via OM: Order cancelled - Patient discharged Performed By: #### L 100.0100, L500.2500 ####[facility] [address] [place], [address] CO2 Normal 21.0-32.0 [facility] Comment on above: Result Comment: Canc elled via OM: Order cancelled - Patient discharged Performed By: #### L 100.0100, L500.2500 ####[facility] [address] [place], [address] CREAT,SERUM Normal 0.55-1.02 [facility] Comment on above: Result Comment: Canc elled via OM: Order cancelled - Patient discharged Performed By: #### L 100.0100, L500.2500 ####[facility] [address] [place], [address] EST GFR Normal >60 [facility] Comment on above: Result Comment: Canc elled via OM: Order cancelled - Patient discharged Performed By: #### L 100.0100, L500.2500 ####[facility] [address] [place], [address] EST GFR - AA Normal >60 [facility] Comment on above: Result Comment: Canc elled via OM: Order cancelled - Patient discharged Performed By: #### L 100.0100, L500.2500 ####[facility] [address] [place], [address] GAP Normal 5-15 [facility] Comment on above: Result Comment: Canc elled via OM: Order cancelled - Patient discharged Performed By: #### L 100.0100, L500.2500 ####[facility] [address] [place], [address] GLU Normal 74-106 [facility] Comment on above: Result Comment: Canc elled via OM: Order cancelled - Patient discharged Performed By: #### L 100.0100, L500.2500 ####[facility] [address] [place], [address] Potassium Normal 3.5-5.1 [facility] Comment on above: Result Comment: Canc elled via OM: Order cancelled - Patient discharged Performed By: #### L 100.0100, L500.2500 ####[facility] [address] [place], [address] Basic Metabolic Profile (BMP) Normal 136-145 [facility] Comment on above: Result Comment: Canc elled via OM: Order cancelled - Patient discharged Performed By: #### L 100.0100, L500.2500 ####[facility] [address] [place], [address] CBC W/Diff, Automatedon 0 Absolute Neut Normal 2.0-7.7 [facility] Comment on above: Result Comment: Canc elled via OM: Order cancelled - Patient discharged Performed By: #### L 100.0100, L500.2500 ####[facility] [address] [place], [address] HCT Normal 37-47 [facility] Comment on above: Result Comment: Canc elled via OM: Order cancelled - Patient discharged Performed By: #### L 100.0100, L500.2500 ####[facility] [address] [place], [address] HGB Normal 12.0-15.0 [facility] Comment on above: Result Comment: Canc elled via OM: Order cancelled - Patient discharged Performed By: #### L 100.0100, L500.2500 ####[facility] [address] [place], [address] MCH Normal 27.0-32.0 [facility] Comment on above: Result Comment: Canc elled via OM: Order cancelled - Patient discharged Performed By: #### L 100.0100, L500.2500 ####[facility] [address] [place], [address] MCHC Normal 32-36 [facility] Comment on above: Result Comment: Canc elled via OM: Order cancelled - Patient discharged Performed By: #### L 100.0100, L500.2500 ####[facility] [address] [place], [address] MCV Normal 81-99 [facility] Comment on above: Result Comment: Canc elled via OM: Order cancelled - Patient discharged Performed By: #### L 100.0100, L500.2500 ####[facility] [address] [place], [address] NEUT% Normal 47-70 [facility] Comment on above: Result Comment: Canc elled via OM: Order cancelled - Patient discharged Performed By: #### L 100.0100, L500.2500 ####[facility] [address] [place], [address] PLT Normal 150-450 [facility] Comment on above: Result Comment: Canc elled via OM: Order cancelled - Patient discharged Performed By: #### L 100.0100, L500.2500 ####[facility] [address] [place], [address] RBC Normal 4.2-5.4 [facility] Comment on above: Result Comment: Canc elled via OM: Order cancelled - Patient discharged Performed By: #### L 100.0100, L500.2500 ####[facility] [address] [place], [address] RDW CV Normal 11.6-14.6 [facility] Comment on above: Result Comment: Canc elled via OM: Order cancelled - Patient discharged Performed By: #### L 100.0100, L500.2500 ####[facility] [address] [place], [address] RDW SD Normal 35.1-43.9 [facility] Comment on above: Result Comment: Canc elled via OM: Order cancelled - Patient discharged Performed By: #### L 100.0100, L500.2500 ####[facility] [address] [place], [address] WBC Normal 4.4-11.0 [facility] Comment on above: Result Comment: Canc elled via OM: Order cancelled - Patient discharged Performed By: #### L 100.0100, L500.2500 ####[facility] [address] [place], [address] Culture, Blood (WB)on 2024 CUB Blood cultures x2, f rom two different sites No growth in 5 days. Normal [facility] Comment on above: Performed By: #### L 300.3900, M200.1000, L500.4050, L100.0100, L300.4310, L503.6005, L501.4020 ####[facility] [address] [place], [address] Basic Metabolic Profile (BMP )on 02-18-2024 BUN Normal 7-18 [facility] Comment on above: Result Comment: Canc elled via OM: Order cancelled - Patient discharged Performed By: #### L 100.0100, L500.2500 ####[facility] [address] [place], [address] BUN/CRE Normal 10-20 [facility] Comment on above: Result Comment: Canc elled via OM: Order cancelled - Patient discharged Performed By: #### L 100.0100, L500.2500 ####[facility] [address] [place], [address] CA,Total Normal 8.5-10.1 [facility] Comment on above: Result Comment: Canc elled via OM: Order cancelled - Patient discharged Performed By: #### L 100.0100, L500.2500 ####[facility] [address] [place], [address] CL Normal 98-107 [facility] Comment on above: Result Comment: Canc elled via OM: Order cancelled - Patient discharged Performed By: #### L 100.0100, L500.2500 ####[facility] [address] [place], [address] CO2 Normal 21.0-32.0 [facility] Comment on above: Result Comment: Canc elled via OM: Order cancelled - Patient discharged Performed By: #### L 100.0100, L500.2500 ####[facility] [address] [place], [address] CREAT,SERUM Normal 0.55-1.02 [facility] Comment on above: Result Comment: Canc elled via OM: Order cancelled - Patient discharged Performed By: #### L 100.0100, L500.2500 ####[facility] [address] [place], [address] EST GFR Normal >60 [facility] Comment on above: Result Comment: Canc elled via OM: Order cancelled - Patient discharged Performed By: #### L 100.0100, L500.2500 ####[facility] [address] [place], [address] EST GFR - AA Normal >60 [facility] Comment on above: Result Comment: Canc elled via OM: Order cancelled - Patient discharged Performed By: #### L 100.0100, L500.2500 ####[facility] [address] [place], [address] GAP Normal 5-15 [facility] Comment on above: Result Comment: Canc elled via OM: Order cancelled - Patient discharged Performed By: #### L 100.0100, L500.2500 ####[facility] [address] [place], [address] GLU Normal 74-106 [facility] Comment on above: Result Comment: Canc elled via OM: Order cancelled - Patient discharged Performed By: #### L 100.0100, L500.2500 ####[facility] [address] [place], [address] Potassium Normal 3.5-5.1 [facility] Comment on above: Result Comment: Canc elled via OM: Order cancelled - Patient discharged Performed By: #### L 100.0100, L500.2500 ####[facility] [address] [place], [address] Basic Metabolic Profile (BMP) Normal 136-145 [facility] Comment on above: Result Comment: Canc elled via OM: Order cancelled - Patient discharged Performed By: #### L 100.0100, L500.2500 ####[facility] [address] [place], [address] CBC W/Diff, Automatedon 0 Absolute Neut Normal 2.0-7.7 [facility] Comment on above: Result Comment: Canc elled via OM: Order cancelled - Patient discharged Performed By: #### L 100.0100, L500.2500 ####[facility] [address] [place], [address] HCT Normal 37-47 [facility] Comment on above: Result Comment: Canc elled via OM: Order cancelled - Patient discharged Performed By: #### L 100.0100, L500.2500 ####[facility] [address] [place], [address] HGB Normal 12.0-15.0 [facility] Comment on above: Result Comment: Canc elled via OM: Order cancelled - Patient discharged Performed By: #### L 100.0100, L500.2500 ####[facility] [address] [place], [address] MCH Normal 27.0-32.0 [facility] Comment on above: Result Comment: Canc elled via OM: Order cancelled - Patient discharged Performed By: #### L 100.0100, L500.2500 ####[facility] [address] [place], [address] MCHC Normal 32-36 [facility] Comment on above: Result Comment: Canc elled via OM: Order cancelled - Patient discharged Performed By: #### L 100.0100, L500.2500 ####[facility] [address] [place], [address] MCV Normal 81-99 [facility] Comment on above: Result Comment: Canc elled via OM: Order cancelled - Patient discharged Performed By: #### L 100.0100, L500.2500 ####[facility] [address] [place], [address] NEUT% Normal 47-70 [facility] Comment on above: Result Comment: Canc elled via OM: Order cancelled - Patient discharged Performed By: #### L 100.0100, L500.2500 ####[facility] [address] [place], [address] PLT Normal 150-450 [facility] [facility] Comment on above: Result Comment: Canc elled via OM: Order cancelled - Patient discharged Performed By: #### L 100.0100, L500.2500 ####[facility] [address] [place], [address] RBC Normal 4.2-5.4 [facility] Comment on above: Result Comment: Canc elled via OM: Order cancelled - Patient discharged Performed By: #### L 100.0100, L500.2500 ####[facility] [address] [place], [address] RDW CV Normal 11.6-14.6 [facility] Comment on above: Result Comment: Canc elled via OM: Order cancelled - Patient discharged Performed By: #### L 100.0100, L500.2500 ####[facility] [address] [place], [address] RDW SD Normal 35.1-43.9 [facility] Comment on above: Result Comment: Canc elled via OM: Order cancelled - Patient discharged Performed By: #### L 100.0100, L500.2500 ####[facility] [address] [place] [place], [address] WBC Normal 4.4-11.0 [facility] Comment on above: Result Comment: Canc elled via OM: Order cancelled - Patient discharged Performed By: #### L 100.0100, L500.2500 ####[facility] [address] [place], [address] Absolute neutrophil countOrd ered By: Jordana Hopkins on 02-17-2024 Absolute neutrophil count 6.4 X10^3/uL 2.0-7.7 [facility] Basic Metabolic Profile (BMP )on 02-17-2024 BUN/CRE 22.4 RATIO High 10-20 [facility] Comment on above: Performed By: #### L 100.0100, L500.2500 ####[facility] [address] [place], [address] CA,Total 9.2 mg/dL Normal 8.5-10.1 [facility] Comment on above: Performed By: #### L 100.0100, L500.2500 ####[facility] [address] [place], [address] Chloride [Moles/Vol] 110 mmol/L High 98-107 [facility] Comment on above: Performed By: #### L 100.0100, L500.2500 ####[facility] [address] [place], [address] CO2 [Moles/Vol] 26.0 mmol/L Normal 21.0-32.0 [facility] Comment on above: Performed By: #### L 100.0100, L500.2500 ####[facility] [address] [place], [address] Creatinine [Mass/Vol] 0.76 mg/dL Normal 0.55-1.02 [facility] Comment on above: Result Comment: The validity of the calculated GFR GFRAA in patients over70 years has not been determined. Clinical correlation isessential. Performed By: #### L 100.0100, L500.2500 ####[facility] [address] [place], [address] ECRCL 58.88 ml/min Normal [facility] Comment on above: Performed By: #### L 100.0100, L500.2500 ####[facility] [address] [place], [address] EST GFR - AA 97 mL/min Normal >60 [facility] Comment on above: Result Comment: Afri can [place] GFR Calc Performed By: #### L 100.0100, L500.2500 ####[facility] [address] [place], [address] GAP 6 Normal 5-15 [facility] Comment on above: Performed By: #### L 100.0100, L500.2500 ####[facility] [address] [place], [address] GFR/1.73 sq M.predicted among non-blacks MDRD (S/P/Bld) [Vol rate/Area] 80 mL/min/{1.73_m2} Normal >60 [facility] Comment on above: Result Comment: Non- GFR Calc Performed By: #### L 100.0100, L500.2500 ####[facility] [address] [place], [address] Glucose [Mass/Vol] 139 mg/dL High 74-106 [facility] Comment on above: Result Comment: Fast ing Glucose result greater than or equal to 126 mg/dLsuggests DIABETES MELLITUS per A.D.A. criteria. Performed By: #### L 100.0100, L500.2500 ####[facility] [address] [place], [address] Potassium [Moles/Vol] 3.3 mmol/L Low 3.5-5.1 [facility] Comment on above: Performed By: #### L 100.0100, L500.2500 ####[facility] [address] [place], [address] Sodium [Moles/Vol] 142 mmol/L Normal 136-145 [facility] Comment on above: Performed By: #### L 100.0100, L500.2500 ####[facility] [address] [place], [address] Urea nitrogen [Mass/Vol] 17 mg/dL Normal 7-18 [facility] Comment on above: Performed By: #### L 100.0100, L500.2500 ####[facility] [address] [place], [address] Basophil percentageOrdered B y: Jordana Rosiam on 02-17-2024 Basophil percentage 0.2 % 0-1 [facility] Bedside Glucoseon 02-17-2024 FINGERSTICK GLU 134 mg/dL High 74-106 [facility] Comment on above: Result Comment: GERALDO GEMENT OF PATIENT CARE PER NURSING PROTOCOL Performed By: #### L 501.080 ####[facility] [address] [place], [address] FINGERSTICK GLU 129 mg/dL High 74-106 [facility] Comment on above: Result Comment: GERALDO GEMENT OF PATIENT CARE PER NURSING PROTOCOL Performed By: #### L 501.080 ####[facility] [address] [place], [address] FINGERSTICK GLU 191 mg/dL High 74-106 [facility] Comment on above: Result Comment: GERALDO GEMENT OF PATIENT CARE PER NURSING PROTOCOL Performed By: #### L 501.080 ####[facility] [address] [place], [address] FINGERSTICK GLU 139 mg/dL High 74-106 [facility] Comment on above: Result Comment: GERALDO GEMENT OF PATIENT CARE PER NURSING PROTOCOL Performed By: #### L 501.080 ####[facility] [address] [place], [address] Blood urea nitrogen (BUN)/cr eatinine ratioOrdered By: Jordana Hopkins on 02-17-2024 Blood urea nitrogen (BUN)/creatinine ratio 22.4 RATIO High 10-20 [facility] CBC W/Diff, Automatedon Absolute Lymph 3.32 X10 3/uL Normal 0.83-4.51 [facility] Comment on above: Performed By: #### L 100.0100, L500.2500 ####[facility] [address] [place], [address] Absolute Neut 6.4 X10 3/uL Normal 2.0-7.7 [facility] Comment on above: Performed By: #### L 100.0100, L500.2500 ####[facility] [address] [place], [address] Basophils/100 WBC (Bld) 0.2 % Normal 0-1 [facility] Comment on above: Performed By: #### L 100.0100, L500.2500 ####[facility] [address] [place], [address] Eosinophils/100 WBC (Bld) 2.2 % Normal 0-5 [facility] Comment on above: Performed By: #### L 100.0100, L500.2500 ####[facility] [address] [place], [address] Erythrocyte distribution width (RBC) [Ratio] 13.2 % Normal 11.6-14.6 [facility] Comment on above: Performed By: #### L 100.0100, L500.2500 ####[facility] [address] [place], [address] Hematocrit (Bld) [Volume fraction] 33.0 % Low 37-47 [facility] Comment on above: Performed By: #### L 100.0100, L500.2500 ####[facility] [address] [place], [address] Hemoglobin (Bld) [Mass/Vol] 10.3 g/dL Low 12.0-15.0 [facility] Comment on above: Performed By: #### L 100.0100, L500.2500 ####[facility] [address] [place], [address] IG% 0.200 Normal 0.0-0.9 [facility] Comment on above: Result Comment: IG% - Immature Granulocytes (promyelocytes, myelocytes andmetamyelocytes) > 1% indicates that a LEFT SHIFT is Present. Performed By: #### L 100.0100, L500.2500 ####[facility] [address] [place], [address] Lymphocytes/100 WBC (Bld) 31.1 % Normal 19-41 [facility] Comment on above: Performed By: #### L 100.0100, L500.2500 ####[facility] [address] [place], [address] MCH (RBC) [Entitic mass] 28.7 pg Normal 27.0-32.0 [facility] Comment on above: Performed By: #### L 100.0100, L500.2500 ####[facility] [address] [place], [address] MCHC (RBC) [Mass/Vol] 31.2 g/dL Low 32-36 [facility] Comment on above: Performed By: #### L 100.0100, L500.2500 ####[facility] [address] [place], [address] MCV (RBC) [Entitic vol] 91.9 fL Normal 81-99 [facility] Comment on above: Performed By: #### L 100.0100, L500.2500 ####[facility] [address] [place], [address] Monocytes/100 WBC (Bld) 6.4 % Normal 0-10 [facility] Comment on above: Performed By: #### L 100.0100, L500.2500 ####[facility] [address] [place], [address] Neutrophils/100 WBC (Bld) 59.9 % Normal 47-70 [facility] Comment on above: Performed By: #### L 100.0100, L500.2500 ####[facility] [address] [place], [address] Nucleated RBC (Bld) [#/Vol] 0 10*3/uL Normal 0-5 [facility] Comment on above: Performed By: #### L 100.0100, L500.2500 ####[facility] [address] [place], [address] Platelet mean volume (Bld) [Entitic vol] 9.6 fL Normal 6.2-12.0 [facility] Comment on above: Performed By: #### L 100.0100, L500.2500 ####[facility] [address] [place], [address] Platelets (Bld) [#/Vol] 226 10*3/uL Normal 150-450 [facility] Comment on above: Performed By: #### L 100.0100, L500.2500 ####[facility] [address] [place], [address] RBC (Bld) [#/Vol] 3.59 10*6/uL Low 4.2-5.4 [facility] Comment on above: Performed By: #### L 100.0100, L500.2500 ####[facility] [address] [place], [address] RDW SD 44.3 fl High 35.1-43.9 [facility] Comment on above: Performed By: #### L 100.0100, L500.2500 ####[facility] [address] [place], [address] WBC (Bld) [#/Vol] 10.7 10*3/uL Normal 4.4-11.0 [facility] Comment on above: Performed By: #### L 100.0100, L500.2500 ####[facility] [address] [place], [address] Calcium [Mass/Vol]Ordered By : Jordana Hopkins on 02-17-2024 Serum or plasma calcium measurement (mass/volume) 9.2 mg/dL 8.5-10.1 [facility] Carbon dioxide measurementOr dered By: Jordana Hopkins on 02-17-2024 Carbon dioxide measurement 26.0 mmol/L 21.0-32.0 [facility] Chloride measurementOrdered By: Jordana Hopkins on 02-17-2024 Chloride measurement 110 mmol/L High 98-107 [facility] Creatinine [Mass/Vol]Ordered By: Jordana Hopkins on 02-17-2024 Serum or plasma creatinine measurement (mass/volume) 0.76 mg/dL 0.55-1.02 [facility] Discharge Instructionon 01-0 Discharge Instruction Normal [facility] Eosinophil percentageOrdered By: Jordana Hopkins on 02-17-2024 Eosinophil percentage 2.2 % 0-5 [facility] Erythrocyte distribution wid th (RBC) [Ratio]Ordered By: Jordana Hopkins on 02-17-2024 Erythrocyte distribution width ratio 13.2 % 11.6-14.6 [facility] Erythrocyte distribution wid th standard deviationOrdered By: Jordana Hopkins on 02-17-2024 Erythrocyte distribution width standard deviation 44.3 fl High 35.1-43.9 [facility] Estimated glomerular filtrat ion rate (GFR) AmericanOrdered By: Jordana Hopkins on 02-17-2024 Estimated glomerular filtration rate (GFR) 97 mL/min >60 [facility] Estimation of creatinine maribel aranceOrdered By: Jordana Hopkins on 02-17-2024 Estimation of creatinine clearance 58.88 ml/min [facility] Glomerular filtration rate ( GFR) estimationOrdered By: Jordana Hopkins on 02-17-2024 Glomerular filtration rate (GFR) estimation 80 mL/min >60 [facility] Glucose measurementOrdered B y: Jordana Hopkins on 02-17-2024 Glucose measurement 139 mg/dL High 74-106 [facility] Glucose measurement at bedsi deOrdered By: Jordana Hopkins on 02-17-2024 Glucose measurement at bedside 134 mg/dL High 74-106 [facility] Hematocrit Auto (Bld) [Volum e fraction]Ordered By: Jordana Hopkins on 02-17-2024 Automated blood hematocrit (percentage) 33.0 % Low 37-47 [facility] Hemoglobin measurementOrdere d By: Jordana Hopkins on 02-17-2024 Hemoglobin measurement 10.3 g/dL Low 12.0-15.0 [facility] Immature granulocytes/100 WB C Auto (Bld)Ordered By: Jordana Hopkins on 02-17-2024 Automated immature granulocyte percentage 0.200 % 0.0-0.9 [facility] Lymphocytes Auto (Unsp spec) [#/Vol]Ordered By: Jordana Hopkins on 02-17-2024 Absolute lymphocyte count 3.32 X10^3/uL 0.83-4.51 [facility] Lymphocytes/100 WBC Auto (Un sp spec)Ordered By: Jordana Hopkins on 02-17-2024 Automated lymphocyte count as percentage of total leukocytes 31.1 % 19-41 [facility] MCV (RBC) [Entitic vol]Order ed By: Jordana Hopkins on 02-17-2024 MCV (mean corpuscular volume) determination 91.9 fL 81-99 [facility] Mean corpuscular hemoglobin (MCH) determinationOrdered By: Jordana Hopkins 02-17-2024 Mean corpuscular hemoglobin (MCH) determination 28.7 pg 27.0-32.0 [facility] Mean corpuscular hemoglobin concentration (MCHC) determinationOrdered By: Jordana Hopkins on 02-17-2024 Mean corpuscular hemoglobin concentration (MCHC) determination 31.2 g/dL Low 32-36 [facility] Mean platelet volume determi nationOrdered By: Jordana Hopkins on 02-17-2024 Mean platelet volume determination 9.6 fl 6.2-12.0 [facility] Monocyte percentageOrdered B y: Jordana Hopkins on 02-17-2024 Monocyte percentage 6.4 % 0-10 [facility] Neutrophil percentageOrdered By: Jordana Hopkins on 02-17-2024 Neutrophil percentage 59.9 % 47-70 [facility] Nucleated red blood cell per centageOrdered By: Jordana Hopkins on 02-17-2024 Nucleated red blood cell percentage 0 % 0-5 [facility] Platelet countOrdered By: Meaghan Hopkins on 02-17-2024 Platelet count 226 K/mm3 150-450 [facility] Potassium measurementOrdered By: Jordana Hopkins on 02-17-2024 Potassium measurement 3.3 mmol/L Low 3.5-5.1 [facility] RBC Auto (Bld) [#/Vol]Ordere d By: Jordana Hopkins on 02-17-2024 Automated blood erythrocyte count 3.59 M/mm3 Low 4.2-5.4 [facility] Serum anion gap measurementO rdered By: Jordana Hopkins on 02-17-2024 Serum anion gap measurement 6 5-15 [facility] Sodium levelOrdered By: Jordana Hopkins on 02-17-2024 Sodium level 142 mmol/L 136-145 [facility] Urea nitrogen [Mass/Vol]Orde red By: Jordana Hopkins on 02-17-2024 Serum or plasma urea nitrogen measurement (mass/volume) 17 mg/dL 7-18 [facility] White blood cell (WBC) count Ordered By: Jordana Hopkins on 02-17-2024 White blood cell (WBC) count 10.7 K/mm3 4.4-11.0 [facility] Basic Metabolic Profile (BMP )on 02-16-2024 BUN/CRE 28.0 RATIO High 10-20 [facility] Comment on above: Performed By: #### L 100.0100, L500.2500 ####[facility] [address] [place], [address] CA,Total 8.9 mg/dL Normal 8.5-10.1 [facility] Comment on above: Performed By: #### L 100.0100, L500.2500 ####[facility] [address] [place], [address] Chloride [Moles/Vol] 111 mmol/L High 98-107 [facility] Comment on above: Performed By: #### L 100.0100, L500.2500 ####[facility] [address] [place], [address] CO2 [Moles/Vol] 25.0 mmol/L Normal 21.0-32.0 [facility] Comment on above: Performed By: #### L 100.0100, L500.2500 ####[facility] [address] [place], [address] Creatinine [Mass/Vol] 0.82 mg/dL Normal 0.55-1.02 [facility] Comment on above: Result Comment: The validity of the calculated GFR GFRAA in patients over70 years has not been determined. Clinical correlation isessential. Performed By: #### L 100.0100, L500.2500 ####[facility] [address] [place], [address] ECRCL 62.20 ml/min Normal [facility] Comment on above: Performed By: #### L 100.0100, L500.2500 ####[facility] [address] [place], [address] EST GFR - AA 88 mL/min Normal >60 [facility] Comment on above: Result Comment: Afri can [place] GFR Calc Performed By: #### L 100.0100, L500.2500 ####[facility] [address] [place], [address] GAP 5 Normal 5-15 [facility] Comment on above: Performed By: #### L 100.0100, L500.2500 ####[facility] [address] [place], [address] GFR/1.73 sq M.predicted among non-blacks MDRD (S/P/Bld) [Vol rate/Area] 73 mL/min/{1.73_m2} Normal >60 [facility] Comment on above: Result Comment: Non- GFR Calc Performed By: #### L 100.0100, L500.2500 ####[facility] [address] [place], [address] Glucose [Mass/Vol] 131 mg/dL High 74-106 [facility] Comment on above: Result Comment: Fast ing Glucose result greater than or equal to 126 mg/dLsuggests DIABETES MELLITUS per A.D.A. criteria. Performed By: #### L 100.0100, L500.2500 ####[facility] [address] [place], [address] Potassium [Moles/Vol] 4.0 mmol/L Normal 3.5-5.1 [facility] Comment on above: Performed By: #### L 100.0100, L500.2500 ####[facility] [address] [place], [address] Sodium [Moles/Vol] 142 mmol/L Normal 136-145 [facility] Comment on above: Performed By: #### L 100.0100, L500.2500 ####[facility] [address] [place], [address] Urea nitrogen [Mass/Vol] 23 mg/dL High 7-18 [facility] Comment on above: Performed By: #### L 100.0100, L500.2500 ####[facility] [address] [place], [address] Bedside Glucoseon 02-16-2024 FINGERSTICK GLU 163 mg/dL High 74-106 [facility] Comment on above: Result Comment: GERALDO GEMENT OF PATIENT CARE PER NURSING PROTOCOL Performed By: #### L 501.080 ####[facility] [address] [place], [address] FINGERSTICK GLU 130 mg/dL High 74-106 [facility] Comment on above: Result Comment: GERALDO GEMENT OF PATIENT CARE PER NURSING PROTOCOL Performed By: #### L 501.080 ####[facility] [address] [place], [address] FINGERSTICK GLU 107 mg/dL High 74-106 [facility] Comment on above: Result Comment: GERALDO GEMENT OF PATIENT CARE PER NURSING PROTOCOL Performed By: #### L 501.080 ####[facility] [address] [place], [address] FINGERSTICK GLU 141 mg/dL High 74-106 [facility] Comment on above: Result Comment: GERALDO GEMENT OF PATIENT CARE PER NURSING PROTOCOL Performed By: #### L 501.080 ####[facility] [address] [place], [address] CBC W/Diff, Automatedon 01-0 4-2024 Absolute Lymph 2.93 X10 3/uL Normal 0.83-4.51 [facility] Comment on above: Performed By: #### L 100.0100, L500.2500 ####[facility] [address] [place], [address] Absolute Neut 7.8 X10 3/uL High 2.0-7.7 [facility] Comment on above: Performed By: #### L 100.0100, L500.2500 ####[facility] [address] [place], [address] Basophils/100 WBC (Bld) 0.2 % Normal 0-1 [facility] Comment on above: Performed By: #### L 100.0100, L500.2500 ####[facility] [address] [place], [address] Eosinophils/100 WBC (Bld) 1.1 % Normal 0-5 [facility] Comment on above: Performed By: #### L 100.0100, L500.2500 ####[facility] [address] [place], [address] Erythrocyte distribution width (RBC) [Ratio] 13.4 % Normal 11.6-14.6 [facility] Comment on above: Performed By: #### L 100.0100, L500.2500 ####[facility] [address] [place], [address] Hematocrit (Bld) [Volume fraction] 33.5 % Low 37-47 [facility] Comment on above: Performed By: #### L 100.0100, L500.2500 ####[facility] [address] [place], [address] Hemoglobin (Bld) [Mass/Vol] 10.5 g/dL Low 12.0-15.0 [facility] Comment on above: Performed By: #### L 100.0100, L500.2500 ####[facility] [address] [place], [address] IG% 0.400 Normal 0.0-0.9 [facility] Comment on above: Result Comment: IG% - Immature Granulocytes (promyelocytes, myelocytes andmetamyelocytes) > 1% indicates that a LEFT SHIFT is Present. Performed By: #### L 100.0100, L500.2500 ####[facility] [address] [place], [address] Lymphocytes/100 WBC (Bld) 25.0 % Normal 19-41 [facility] Comment on above: Performed By: #### L 100.0100, L500.2500 ####[facility] [address] [place], [address] MCH (RBC) [Entitic mass] 29.4 pg Normal 27.0-32.0 [facility] Comment on above: Performed By: #### L 100.0100, L500.2500 ####[facility] [address] [place], [address] MCHC (RBC) [Mass/Vol] 31.3 g/dL Low 32-36 [facility] Comment on above: Performed By: #### L 100.0100, L500.2500 ####[facility] [address] [place], [address] MCV (RBC) [Entitic vol] 93.8 fL Normal 81-99 [facility] Comment on above: Performed By: #### L 100.0100, L500.2500 ####[facility] [address] [place], [address] Monocytes/100 WBC (Bld) 6.7 % Normal 0-10 [facility] Comment on above: Performed By: #### L 100.0100, L500.2500 ####[facility] [address] [place], [address] Neutrophils/100 WBC (Bld) 66.6 % Normal 47-70 [facility] Comment on above: Performed By: #### L 100.0100, L500.2500 ####[facility] [address] [place], [address] Nucleated RBC (Bld) [#/Vol] 0 10*3/uL Normal 0-5 [facility] Comment on above: Performed By: #### L 100.0100, L500.2500 ####[facility] [address] [place], [address] Platelet mean volume (Bld) [Entitic vol] 10.0 fL Normal 6.2-12.0 [facility] Comment on above: Performed By: #### L 100.0100, L500.2500 ####[facility] [address] [place], [address] Platelets (Bld) [#/Vol] 236 10*3/uL Normal 150-450 [facility] Comment on above: Performed By: #### L 100.0100, L500.2500 ####[facility] [address] [place], [address] RBC (Bld) [#/Vol] 3.57 10*6/uL Low 4.2-5.4 [facility] Comment on above: Performed By: #### L 100.0100, L500.2500 ####[facility] [address] [place], [address] RDW SD 46.5 fl High 35.1-43.9 [facility] Comment on above: Performed By: #### L 100.0100, L500.2500 ####[facility] [address] [place], [address] WBC (Bld) [#/Vol] 11.7 10*3/uL High 4.4-11.0 [facility] Comment on above: Performed By: #### L 100.0100, L500.2500 ####[facility] [address] [place], [address] Basic Metabolic Profile (BMP )on 02-15-2024 BUN/CRE 25.9 RATIO High 10-20 [facility] Comment on above: Performed By: #### L 500.2500, L100.0100 ####[facility] [address] [place], [address] CA,Total 8.8 mg/dL Normal 8.5-10.1 [facility] Comment on above: Performed By: #### L 500.2500, L100.0100 ####[facility] [address] [place], [address] Chloride [Moles/Vol] 111 mmol/L High 98-107 [facility] Comment on above: Performed By: #### L 500.2500, L100.0100 ####[facility] [address] [place], [address] CO2 [Moles/Vol] 23.0 mmol/L Normal 21.0-32.0 [facility] Comment on above: Performed By: #### L 500.2500, L100.0100 ####[facility] [address] [place], [address] Creatinine [Mass/Vol] 0.89 mg/dL Normal 0.55-1.02 [facility] Comment on above: Result Comment: The validity of the calculated GFR GFRAA in patients over70 years has not been determined. Clinical correlation isessential. Performed By: #### L 500.2500, L100.0100 ####[facility] [address] [place], [address] ECRCL 57.20 ml/min Normal [facility] Comment on above: Performed By: #### L 500.2500, L100.0100 ####[facility] [address] [place], [address] EST GFR - AA 81 mL/min Normal >60 [facility] Comment on above: Result Comment: Afri can [place] GFR Calc Performed By: #### L 500.2500, L100.0100 ####[facility] [address] [place], [address] GAP 7 Normal 5-15 [facility] Comment on above: Performed By: #### L 500.2500, L100.0100 ####[facility] [address] [place], [address] GFR/1.73 sq M.predicted among non-blacks MDRD (S/P/Bld) [Vol rate/Area] 67 mL/min/{1.73_m2} Normal >60 [facility] Comment on above: Result Comment: Non- GFR Calc Performed By: #### L 500.2500, L100.0100 ####[facility] [address] [place], [address] Glucose [Mass/Vol] 181 mg/dL High 74-106 [facility] Comment on above: Result Comment: Fast ing Glucose result greater than or equal to 126 mg/dLsuggests DIABETES MELLITUS per A.D.A. criteria. Performed By: #### L 500.2500, L100.0100 ####[facility] [address] [place], [address] Potassium [Moles/Vol] 3.9 mmol/L Normal 3.5-5.1 [facility] Comment on above: Performed By: #### L 500.2500, L100.0100 ####[facility] [address] [place], [address] Sodium [Moles/Vol] 142 mmol/L Normal 136-145 [facility] Comment on above: Performed By: #### L 500.2500, L100.0100 ####[facility] [address] [place], [address] Urea nitrogen [Mass/Vol] 23 mg/dL High 7-18 [facility] Comment on above: Performed By: #### L 500.2500, L100.0100 ####[facility] [address] [place], [address] Bedside Glucoseon 02-15-2024 FINGERSTICK GLU 158 mg/dL High 74-106 [facility] Comment on above: Result Comment: GERALDO GEMENT OF PATIENT CARE PER NURSING PROTOCOL Performed By: #### L 501.080 ####[facility] [address] [place], [address] FINGERSTICK GLU 152 mg/dL High 74-106 [facility] Comment on above: Result Comment: GERALDO GEMENT OF PATIENT CARE PER NURSING PROTOCOL Performed By: #### L 501.080 ####[facility] [address] [place], [address] FINGERSTICK GLU 166 mg/dL High 74-106 [facility] Comment on above: Result Comment: GERALDO BEGUM OF PATIENT CARE PER NURSING PROTOCOL Performed By: #### L 501.080 ####[facility] [address] [place], [address] CBC W/Diff, Automatedon 01-0 3-5 Absolute Lymph 2.03 X10 3/uL Normal 0.83-4.51 [facility] Comment on above: Performed By: #### L 500.2500, L100.0100 ####[facility] [address] [place], [address] Absolute Neut 11.7 X10 3/uL High 2.0-7.7 [facility] Comment on above: Performed By: #### L 500.2500, L100.0100 ####[facility] [address] [place], [address] Basophils/100 WBC (Bld) 0.1 % Normal 0-1 [facility] Comment on above: Performed By: #### L 500.2500, L100.0100 ####[facility] [address] [place], [address] Eosinophils/100 WBC (Bld) 0.5 % Normal 0-5 [facility] Comment on above: Performed By: #### L 500.2500, L100.0100 ####[facility] [address] [place], [address] Erythrocyte distribution width (RBC) [Ratio] 13.5 % Normal 11.6-14.6 [facility] Comment on above: Performed By: #### L 500.2500, L100.0100 ####[facility] [address] [place], [address] Hematocrit (Bld) [Volume fraction] 36.2 % Low 37-47 [facility] Comment on above: Performed By: #### L 500.2500, L100.0100 ####[facility] [address] [place], [address] Hemoglobin (Bld) [Mass/Vol] 11.5 g/dL Low 12.0-15.0 [facility] Comment on above: Performed By: #### L 500.2500, L100.0100 ####[facility] [address] [place], [address] IG% 0.500 Normal 0.0-0.9 [facility] Comment on above: Result Comment: IG% - Immature Granulocytes (promyelocytes, myelocytes andmetamyelocytes) > 1% indicates that a LEFT SHIFT is Present. Performed By: #### L 500.2500, L100.0100 ####[facility] [address] [place], [address] Lymphocytes/100 WBC (Bld) 13.5 % Low 19-41 [facility] Comment on above: Performed By: #### L 500.2500, L100.0100 ####[facility] [address] [place], [address] MCH (RBC) [Entitic mass] 29.0 pg Normal 27.0-32.0 [facility] Comment on above: Performed By: #### L 500.2500, L100.0100 ####[facility] [address] [place], [address] MCHC (RBC) [Mass/Vol] 31.8 g/dL Low 32-36 [facility] Comment on above: Performed By: #### L 500.2500, L100.0100 ####[facility] [address] [place], [address] MCV (RBC) [Entitic vol] 91.4 fL Normal 81-99 [facility] Comment on above: Performed By: #### L 500.2500, L100.0100 ####[facility] [address] [place], [address] Monocytes/100 WBC (Bld) 7.7 % Normal 0-10 [facility] Comment on above: Performed By: #### L 500.2500, L100.0100 ####[facility] [address] [place], [address] Neutrophils/100 WBC (Bld) 77.7 % High 47-70 [facility] Comment on above: Performed By: #### L 500.2500, L100.0100 ####[facility] [address] [place], [address] Nucleated RBC (Bld) [#/Vol] 0 10*3/uL Normal 0-5 [facility] Comment on above: Performed By: #### L 500.2500, L100.0100 ####[facility] [address] [place], [address] Platelet mean volume (Bld) [Entitic vol] 9.7 fL Normal 6.2-12.0 [facility] Comment on above: Performed By: #### L 500.2500, L100.0100 ####[facility] [address] [place], [address] Platelets (Bld) [#/Vol] 280 10*3/uL Normal 150-450 [facility] Comment on above: Performed By: #### L 500.2500, L100.0100 ####[facility] [address] [place], [address] RBC (Bld) [#/Vol] 3.96 10*6/uL Low 4.2-5.4 [facility] Comment on above: Performed By: #### L 500.2500, L100.0100 ####[facility] [address] [place], [address] RDW SD 44.8 fl High 35.1-43.9 [facility] Comment on above: Performed By: #### L 500.2500, L100.0100 ####[facility] [address] [place], [address] WBC (Bld) [#/Vol] 15.0 10*3/uL High 4.4-11.0 [facility] Comment on above: Performed By: #### L 500.2500, L100.0100 ####[facility] [address] [place], [address] Urine Cultureon 02-15-2024 URC Normal [facility] Comment on above: Performed By: #### M 100.2200 ####[facility] [address] [place], [address] ALP [Catalytic activity/Vol] Ordered By: Tamiko Quigley on 02-14-2024 Serum or plasma alkaline phosphatase measurement 96 U/L 45-117 [facility] ALT [Catalytic activity/Vol] Ordered By: Tamiko Quigley on 02-14-2024 Serum or plasma alanine aminotransferase (ALT) measurement 19 U/L 13-56 [facility] Albumin to globulin ratioOrd ered By: Tamiko Quigley on 02-14-2024 Albumin to globulin ratio 1.0 RATIO 0.9-2.4 [facility] Ammoniaon 02-14-2024 Ammonia (P) [Moles/Vol] 13.0 umol/L Normal 11-32 [facility] Comment on above: Performed By: #### L 503.5510 ####[facility] [address] [place], [address] Arterial patency Wrist arter y --pre arterial punctureOrdered By: Tamiko Quigley on 02-14-2024 Assessment of wrist artery patency prior to arterial puncture N/A [facility] Base excess Calc (BldV) [Mol es/Vol]Ordered By: Tamiko Quigley on 02-14-2024 Blood base excess determination -6 mmol/L Low -2-2 [facility] Basic Metabolic Profile (BMP )on 02-14-2024 BUN/CRE 22.5 RATIO High 10-20 [facility] Comment on above: Performed By: #### L 500.2500 ####[facility] [address] [place], [address] CA,Total < 5.0 Invalid Interpretation Code 8.5-10.1 [facility] Comment on above: Result Comment: Crit ical Result(s) Called at: 01:27:17 02/14/2024 by: EVERETT. Results read back by Smiley Goff Performed By: #### L 500.2500 ####[facility] [address] [place], [address] Chloride [Moles/Vol] 125 mmol/L High 98-107 [facility] Comment on above: Performed By: #### L 500.2500 ####[facility] [address] [place], [address] CO2 [Moles/Vol] 14.0 mmol/L Low 21.0-32.0 [facility] Comment on above: Performed By: #### L 500.2500 ####[facility] [address] [place], [address] Creatinine [Mass/Vol] 0.49 mg/dL Low 0.55-1.02 [facility] Comment on above: Result Comment: The validity of the calculated GFR GFRAA in patients over70 years has not been determined. Clinical correlation isessential. Performed By: #### L 500.2500 ####[facility] [address] [place], [address] ECRCL 66.40 ml/min Normal [facility] Comment on above: Performed By: #### L 500.2500 ####[facility] [address] [place], [address] EST GFR - AA 161 mL/min Normal >60 [facility] Comment on above: Result Comment: Afri can [place] GFR Calc Performed By: #### L 500.2500 ####[facility] [address] [place], [address] GAP 9 Normal 5-15 [facility] Comment on above: Performed By: #### L 500.2500 ####[facility] [address] [place], [address] GFR/1.73 sq M.predicted among non-blacks MDRD (S/P/Bld) [Vol rate/Area] 133 mL/min/{1.73_m2} Normal >60 [facility] Comment on above: Result Comment: Non- GFR Calc Performed By: #### L 500.2500 ####[facility] [address] [place], [address] Glucose [Mass/Vol] 192 mg/dL High 74-106 [facility] Comment on above: Result Comment: Fast ing Glucose result greater than or equal to 126 mg/dLsuggests DIABETES MELLITUS per A.D.A. criteria. Performed By: #### L 500.2500 ####[facility] [address] [place], [address] Potassium [Moles/Vol] 2.3 mmol/L Invalid Interpretation Code 3.5-5.1 [facility] Comment on above: Result Comment: Crit ical Result(s) Called at: 01:26:50 02/14/2024 by: EVERETT. Results read back by Smiley Goff Performed By: #### L 500.2500 ####[facility] [address] [place], [address] Sodium [Moles/Vol] 148 mmol/L High 136-145 [facility] Comment on above: Performed By: #### L 500.2500 ####[facility] [address] [place], [address] Urea nitrogen [Mass/Vol] 11 mg/dL Normal 7-18 [facility] Comment on above: Performed By: #### L 500.2500 ####[facility] [address] [place], [address] Bedside Glucoseon 02-14-2024 FINGERSTICK GLU 180 mg/dL High 74-106 [facility] Comment on above: Result Comment: GERALDO GEMENT OF PATIENT CARE PER NURSING PROTOCOL Performed By: #### L 501.080 ####[facility] [address] [place], [address] FINGERSTICK GLU 171 mg/dL High 74-106 [facility] Comment on above: Result Comment: GERALDO GEMENT OF PATIENT CARE PER NURSING PROTOCOL Performed By: #### L 501.080 ####[facility] [address] [place], [address] FINGERSTICK GLU 189 mg/dL High 74-106 [facility] Comment on above: Result Comment: GERALDO GEMENT OF PATIENT CARE PER NURSING PROTOCOL Performed By: #### L 501.080 ####[facility] [address] [place], [address] FINGERSTICK GLU 205 mg/dL High 74-106 [facility] Comment on above: Result Comment: GERALDO GEMENT OF PATIENT CARE PER NURSING PROTOCOL Performed By: #### L 501.080 ####[facility] [address] [place], [address] FINGERSTICK GLU 271 mg/dL High 74-106 [facility] Comment on above: Result Comment: GERALDO GEMENT OF PATIENT CARE PER NURSING PROTOCOL Performed By: #### L 501.080 ####[facility] [address] [place], [address] Bilirubin, totalOrdered By: Tamiko Quigley on 02-14-2024 Bilirubin, total 1.20 mg/dL High 0.20-1.00 [facility] Blood Gases by CPSon 025 KYREE TEST N/A Normal [facility] Comment on above: Performed By: #### L 9000.0800 ####[facility] [address] [place], [address] Base excess Calc (Bld) [Moles/Vol] -6 mmol/L Low -2 to +2 [facility] Comment on above: Performed By: #### L 9000.0800 ####[facility] [address] [place], [address] Blood Gas Type ART Normal [facility] Comment on above: Performed By: #### L 9000.0800 ####[facility] [address] [place], [address] CO2 [Moles/Vol] 18 mmol/L Normal [facility] Comment on above: Performed By: #### L 9000.0800 ####[facility] [address] [place], [address] FI02 21.0 Normal [facility] Comment on above: Performed By: #### L 9000.0800 ####[facility] [address] [place], [address] HCO3 (Bld) [Moles/Vol] 17.0 mmol/L Low 22-26 [facility] Comment on above: Performed By: #### L 9000.0800 ####[facility] [address] [place], [address] Mode Not entered Normal [facility] Comment on above: Performed By: #### L 9000.0800 ####[facility] [address] [place], [address] O2 Delivery Dev Room Air Normal [facility] Comment on above: Performed By: #### L 9000.0800 ####[facility] [address] [place], [address] pCO2 22.4 mmHg Low 35-45 [facility] Comment on above: Performed By: #### L 9000.0800 ####[facility] [address] [place], [address] pH (Bld) 7.49 [pH] High 7.35-7.45 [facility] Comment on above: Performed By: #### L 9000.0800 ####[facility] [address] [place], [address] PO2 76 mmHG Normal 75-100 [facility] Comment on above: Performed By: #### L 9000.0800 ####[facility] [address] [place], [address] SITE L Radial Normal [facility] Comment on above: Performed By: #### L 9000.0800 ####[facility] [address] [place], [address] SO2 96 Normal 95-99 [facility] Comment on above: Performed By: #### L 9000.0800 ####[facility] [address] [place], [address] Blood bicarbonate measuremen tOrdered By: Tamiko Quigley on 02-14-2024 Blood bicarbonate measurement 17.0 mmol/L Low 22-26 [facility] CBC W/Diff, Automatedon - Absolute Lymph 1.44 X10 3/uL Normal 0.83-4.51 [facility] Comment on above: Performed By: #### L 100.0100 ####[facility] [address] [place], [address] Absolute Neut 18.6 X10 3/uL High 2.0-7.7 [facility] Comment on above: Performed By: #### L 100.0100 ####[facility] [address] [place], [address] Basophils/100 WBC (Bld) 0.1 % Normal 0-1 [facility] Comment on above: Performed By: #### L 100.0100 ####[facility] [address] [place], [address] Eosinophils/100 WBC (Bld) 0.0 % Normal 0-5 [facility] Comment on above: Performed By: #### L 100.0100 ####[facility] [address] [place], [address] Erythrocyte distribution width (RBC) [Ratio] 13.1 % Normal 11.6-14.6 [facility] Comment on above: Performed By: #### L 100.0100 ####[facility] [address] [place], [address] Hematocrit (Bld) [Volume fraction] 42.7 % Normal 37-47 [facility] Comment on above: Performed By: #### L 100.0100 ####[facility] [address] [place], [address] Hemoglobin (Bld) [Mass/Vol] 14.0 g/dL Normal 12.0-15.0 [facility] Comment on above: Performed By: #### L 100.0100 ####[facility] [address] [place], [address] IG% 0.700 Normal 0.0-0.9 [facility] Comment on above: Result Comment: IG% - Immature Granulocytes (promyelocytes, myelocytes andmetamyelocytes) > 1% indicates that a LEFT SHIFT is Present. Performed By: #### L 100.0100 ####[facility] [address] [place], [address] Lymphocytes/100 WBC (Bld) 6.7 % Low 19-41 [facility] Comment on above: Performed By: #### L 100.0100 ####[facility] [address] [place], [address] MCH (RBC) [Entitic mass] 29.5 pg Normal 27.0-32.0 [facility] Comment on above: Performed By: #### L 100.0100 ####[facility] [address] [place], [address] MCHC (RBC) [Mass/Vol] 32.8 g/dL Normal 32-36 [facility] Comment on above: Performed By: #### L 100.0100 ####[facility] [address] [place], [address] MCV (RBC) [Entitic vol] 89.9 fL Normal 81-99 [facility] Comment on above: Performed By: #### L 100.0100 ####[facility] [address] [place], [address] Monocytes/100 WBC (Bld) 6.5 % Normal 0-10 [facility] Comment on above: Performed By: #### L 100.0100 ####[facility] [address] [place], [address] Neutrophils/100 WBC (Bld) 86.0 % High 47-70 [facility] Comment on above: Performed By: #### L 100.0100 ####[facility] [address] [place], [address] Nucleated RBC (Bld) [#/Vol] 0 10*3/uL Normal 0-5 [facility] Comment on above: Performed By: #### L 100.0100 ####[facility] [address] [place], [address] Platelet mean volume (Bld) [Entitic vol] 9.3 fL Normal 6.2-12.0 [facility] Comment on above: Performed By: #### L 100.0100 ####[facility] [address] [place], [address] Platelets (Bld) [#/Vol] 335 10*3/uL Normal 150-450 [facility] Comment on above: Performed By: #### L 100.0100 ####[facility] [address] [place], [address] RBC (Bld) [#/Vol] 4.75 10*6/uL Normal 4.2-5.4 [facility] Comment on above: Performed By: #### L 100.0100 ####[facility] [address] [place], [address] RDW SD 42.8 fl Normal 35.1-43.9 [facility] Comment on above: Performed By: #### L 100.0100 ####[facility] [address] [place], [address] WBC (Bld) [#/Vol] 21.6 10*3/uL High 4.4-11.0 [facility] Comment on above: Performed By: #### L 100.0100 ####[facility] [address] [place], [address] COVID 19 AG RAPID (HAMILTON Gonzales)on 02-14-2024 SARS-CoV-2 (COVID-19) RNA MARILEE+probe Ql (Unsp spec) Normal [facility] Comment on above: Performed By: #### M 100.505 ####[facility] [address] [place], [address] Comprehensive Metabolic Prof ilon 02-14-2024 Albumin [Mass/Vol] 3.8 g/dL Normal 3.2-5.0 [facility] Comment on above: Performed By: #### L 501.9520, L501.5200, L500.4050, L501.2300 ####[facility] [address] [place], [address] Albumin/Globulin [Mass ratio] 1.0 {ratio} Normal 0.9-2.4 [facility] Comment on above: Performed By: #### L 501.9520, L501.5200, L500.4050, L501.2300 ####[facility] [address] [place], [address] ALK P 96 U/L Normal 45-117 [facility] Comment on above: Performed By: #### L 501.9520, L501.5200, L500.4050, L501.2300 ####[facility] [address] [place], [address] ALT [Catalytic activity/Vol] 19 U/L Normal 13-56 [facility] Comment on above: Performed By: #### L 501.9520, L501.5200, L500.4050, L501.2300 ####[facility] [address] [place], [address] AST [Catalytic activity/Vol] 25 U/L Normal 15-37 [facility] Comment on above: Performed By: #### L 501.9520, L501.5200, L500.4050, L501.2300 ####[facility] [address] [place], [address] Bilirubin [Mass/Vol] 1.20 mg/dL High 0.20-1.00 [facility] Comment on above: Result Comment: For patients on eltrombopag therapy, use of Dimension Jackson TBIL is not recommended. Performed By: #### L 501.9520, L501.5200, L500.4050, L501.2300 ####[facility] [address] [place], [address] BUN/CRE 12.3 RATIO Normal 10-20 [facility] Comment on above: Performed By: #### L 501.9520, L501.5200, L500.4050, L501.2300 ####[facility] [address] [place], [address] CA,Total 9.1 mg/dL Normal 8.5-10.1 [facility] Comment on above: Performed By: #### L 501.9520, L501.5200, L500.4050, L501.2300 ####[facility] [address] [place], [address] Chloride [Moles/Vol] 104 mmol/L Normal 98-107 [facility] Comment on above: Performed By: #### L 501.9520, L501.5200, L500.4050, L501.2300 ####[facility] [address] [place], [address] CO2 [Moles/Vol] 18.0 mmol/L Low 21.0-32.0 [facility] Comment on above: Performed By: #### L 501.9520, L501.5200, L500.4050, L501.2300 ####[facility] [address] [place], [address] Creatinine [Mass/Vol] 1.22 mg/dL High 0.55-1.02 [facility] Comment on above: Result Comment: The validity of the calculated GFR GFRAA in patients over70 years has not been determined. Clinical correlation isessential. Performed By: #### L 501.9520, L501.5200, L500.4050, L501.2300 ####[facility] [address] [place], [address] ECRCL 41.78 ml/min Normal [facility] Comment on above: Performed By: #### L 501.9520, L501.5200, L500.4050, L501.2300 ####[facility] [address] [place], [address] EST GFR - AA 56 mL/min Low >60 [facility] Comment on above: Result Comment: Afri can [place] GFR Calc Performed By: #### L 501.9520, L501.5200, L500.4050, L501.2300 ####[facility] [address] [place], [address] GAP 14 Normal 5-15 [facility] Comment on above: Performed By: #### L 501.9520, L501.5200, L500.4050, L501.2300 ####[facility] [address] [place], [address] GFR/1.73 sq M.predicted among non-blacks MDRD (S/P/Bld) [Vol rate/Area] 46 mL/min/{1.73_m2} Low >60 [facility] Comment on above: Result Comment: Non- GFR Calc Performed By: #### L 501.9520, L501.5200, L500.4050, L501.2300 ####[facility] [address] [place], [address] Globulin (S) [Mass/Vol] 3.8 g/dL Normal 2.2-4.2 [facility] Comment on above: Performed By: #### L 501.9520, L501.5200, L500.4050, L501.2300 ####[facility] [address] [place], [address] Glucose [Mass/Vol] 308 mg/dL High 74-106 [facility] Comment on above: Result Comment: Gluc ose result greater than or equal to 200 mg/dLsuggests DIABETES MELLITUS per A.D.A. criteria. Performed By: #### L 501.9520, L501.5200, L500.4050, L501.2300 ####[facility] [address] [place], [address] Potassium [Moles/Vol] 3.7 mmol/L Normal 3.5-5.1 [facility] Comment on above: Performed By: #### L 501.9520, L501.5200, L500.4050, L501.2300 ####[facility] [address] [place], [address] Sodium [Moles/Vol] 135 mmol/L Low 136-145 [facility] Comment on above: Performed By: #### L 501.9520, L501.5200, L500.4050, L501.2300 ####[facility] [address] [place], [address] T PROT 7.6 g/dL Normal 6.4-8.2 [facility] Comment on above: Performed By: #### L 501.9520, L501.5200, L500.4050, L501.2300 ####[facility] [address] [place], [address] Urea nitrogen [Mass/Vol] 15 mg/dL Normal 7-18 [facility] Comment on above: Performed By: #### L 501.9520, L501.5200, L500.4050, L501.2300 ####[facility] [address] [place], [address] Consultation - Intensiviston 02-14-2024 Consultation - Color Separation Photographer Normal [facility] Determination of fraction of inspired oxygenOrdered By: Tamiko Quigley on 02-14-2024 Determination of fraction of inspired oxygen 21.0 [facility] Lactic Acidon 02-14-2024 Lactate [Moles/Vol] 3.8 mmol/L Invalid Interpretation Code 0.4-1.9 [facility] Comment on above: Result Comment: Crit ical Result(s) Called at: 01:52:58 02/14/2024 by: EVERETT. Results read back by Demar Performed By: #### L 503.6005 ####[facility] [address] [place], [address] Lactic acid measurementOrder ed By: Nico Arce on 02-14-2024 Lactic acid measurement 3.8 mmol/L High 0.4-2.0 [facility] M R Staph Aureus DNA by PCRo n 02-14-2024 MRSA DNA ASSAY Negative Normal Negative [facility] Comment on above: Performed By: #### L 8200.1000 ####[facility] [address] [place], [place], [address] MRSA detection PCROrdered By : Tamiko Quigley on 02-14-2024 MRSA detection PCR Negative Negative [facility] Magnesiumon 02-14-2024 Magnesium [Mass/Vol] 1.5 mg/dL Low 1.6-2.6 [facility] Comment on above: Performed By: #### L 501.9520, L501.5200, L500.4050, L501.2300 ####[facility] [address] [place], [place], [id number] Magnesium measurementOrdered By: Tamiko Quigley on 02-14-2024 Magnesium measurement 1.5 mg/dL Low 1.6-2.6 [facility] No Panel InformationOrdered By: Tamiko Quigley on 02-14-2024 25 U/L 15-37 [facility] ART [facility] L Radial [facility] Not entered [facility] Room Air [facility] Oxygen saturation measuremen tOrdered By: Tamiko Quigley on 02-14-2024 Oxygen saturation measurement 96 % 95-99 [facility] Partial pressure of carbon d ioxide measurementOrdered By: Tamiko Quigley on 02-14-2024 Partial pressure of carbon dioxide measurement 22.4 mmHg Low 35-45 [facility] Partial pressure of oxygen m easurementOrdered By: Tamiko Quigley on 02-14-2024 Partial pressure of oxygen measurement 76 mmHG 75-100 [facility] Phosphoruson 02-14-2024 Phosphate [Mass/Vol] 2.2 mg/dL Low 2.5-4.9 [facility] Comment on above: Performed By: #### L 501.9520, L501.5200, L500.4050, L501.2300 ####[facility] [address] [place], [place], [id number] Phosphorus measurementOrdere d By: Tamiko Quigley on 02-14-2024 Phosphorus measurement 2.2 mg/dL Low 2.5-4.9 [facility] Procalcitoninon 02-14-2024 Procalcitonin 0.33 ng/mL High 0.00-0.09 [facility] Comment on above: Result Comment: A [...] are obtained. Performed By: #### L 509.7000 ####[facility] [address] [place], [place], [id number] Procalcitonin [Mass/Vol]Orde red By: Tamiko Quigley on 02-14-2024 Serum procalcitonin measurement 0.33 ng/mL High 0.00-0.09 [facility] RESPIRATORY PANEL MOLECULARo n 02-14-2024 RP PANEL Normal [facility] Comment on above: Performed By: #### M 100.638 ####[facility] [address] [facility] [place], [place], [id number] Serum or plasma albumin timbo urement (mass/volume)Ordered By: Tamiko Quigley on 02-14-2024 Serum or plasma albumin measurement (mass/volume) 3.8 g/dL 2.2-4.2 [facility] TSH QnOrdered By: Tamiko Hendrickson on 02-14-2024 Serum or plasma thyroid stimulating hormone (TSH) measurement (units/volume) 2.180 uIU/mL 0.358-3.740 [facility] Thyroid Stim Hormone (TSH)on 02-14-2024 TSH 2.180 uIU/mL Normal 0.358-3.740 [facility] Comment on above: Performed By: #### L 501.9520, L501.5200, L500.4050, L501.2300 ####[facility] [address] [place], [address] Total carbon dioxide measure mentOrdered By: Tamiko Quigley on 02-14-2024 Total carbon dioxide measurement 18 mmol/L [facility] Total proteinOrdered By: Paola Quigley on 02-14-2024 Total protein 7.6 g/dL 6.4-8.2 [facility] Venous blood ammonia measure mentOrdered By: Tamiko Quigley on 02-14-2024 Venous blood ammonia measurement 13.0 umol/L 11 [facility] pH (Unsp spec)Ordered By: Gerry Quigley on 02-14-2024 Measurement, pH 7.49 High 7.35-7.45 [facility] 12 Lead EKGon 02-13-2024 12 Lead EKG Normal [facility] Abdomen/Pelvis without Conto n 02-13-2024 Abdomen/Pelvis without Cont Normal [facility] Blood cultureOrdered By: Talia Arce on 02-13-2024 Blood culture No growth in 5 days. [facility] Blood culture No growth in 5 days. [facility] Brain/Head without Contrasto n 02-13-2024 Brain/Head without Contrast Normal [facility] CBC W/Diff, Automatedon Absolute Lymph 1.33 X10 3/uL Normal 0.83-4.51 [facility] Comment on above: Performed By: #### L 300.3900, M200.1000, L500.4050, L100.0100, L300.4310, L503.6005, L501.4020 ####[facility] [address] [place], [address] Absolute Neut 18.6 X10 3/uL High 2.0-7.7 [facility] Comment on above: Performed By: #### L 300.3900, M200.1000, L500.4050, L100.0100, L300.4310, L503.6005, L501.4020 ####[facility] [address] [place], [address] Basophils/100 WBC (Bld) 0.3 % Normal 0-1 [facility] Comment on above: Performed By: #### L 300.3900, M200.1000, L500.4050, L100.0100, L300.4310, L503.6005, L501.4020 ####[facility] [address] [place], [address] Eosinophils/100 WBC (Bld) 0.2 % Normal 0-5 [facility] Comment on above: Performed By: #### L 300.3900, M200.1000, L500.4050, L100.0100, L300.4310, L503.6005, L501.4020 ####[facility] [address] [place], [address] Erythrocyte distribution width (RBC) [Ratio] 12.7 % Normal 11.6-14.6 [facility] Comment on above: Performed By: #### L 300.3900, M200.1000, L500.4050, L100.0100, L300.4310, L503.6005, L501.4020 ####[facility] [address] [place], [address] Hematocrit (Bld) [Volume fraction] 43.8 % Normal 37-47 [facility] Comment on above: Performed By: #### L 300.3900, M200.1000, L500.4050, L100.0100, L300.4310, L503.6005, L501.4020 ####[facility] [address] [place], [address] Hemoglobin (Bld) [Mass/Vol] 13.7 g/dL Normal 12.0-15.0 [facility] Comment on above: Performed By: #### L 300.3900, M200.1000, L500.4050, L100.0100, L300.4310, L503.6005, L501.4020 ####[facility] [address] [place], [address] IG% 0.900 Normal 0.0-0.9 [facility] Comment on above: Result Comment: IG% - Immature Granulocytes (promyelocytes, myelocytes andmetamyelocytes) > 1% indicates that a LEFT SHIFT is Present. Performed By: #### L 300.3900, M200.1000, L500.4050, L100.0100, L300.4310, L503.6005, L501.4020 ####[facility] [address] [place], [address] Lymphocytes/100 WBC (Bld) 6.3 % Low 19-41 [facility] Comment on above: Performed By: #### L 300.3900, M200.1000, L500.4050, L100.0100, L300.4310, L503.6005, L501.4020 ####[facility] [address] [place], [address] MCH (RBC) [Entitic mass] 29.6 pg Normal 27.0-32.0 [facility] Comment on above: Performed By: #### L 300.3900, M200.1000, L500.4050, L100.0100, L300.4310, L503.6005, L501.4020 ####[facility] [address] [place], [address] MCHC (RBC) [Mass/Vol] 31.3 g/dL Low 32-36 [facility] Comment on above: Performed By: #### L 300.3900, M200.1000, L500.4050, L100.0100, L300.4310, L503.6005, L501.4020 ####[facility] [address] [place], [address] MCV (RBC) [Entitic vol] 94.6 fL Normal 81-99 [facility] Comment on above: Performed By: #### L 300.3900, M200.1000, L500.4050, L100.0100, L300.4310, L503.6005, L501.4020 ####[facility] [address] [place], [address] Monocytes/100 WBC (Bld) 3.6 % Normal 0-10 [facility] Comment on above: Performed By: #### L 300.3900, M200.1000, L500.4050, L100.0100, L300.4310, L503.6005, L501.4020 ####[facility] [address] [place], [address] Neutrophils/100 WBC (Bld) 88.7 % High 47-70 [facility] Comment on above: Performed By: #### L 300.3900, M200.1000, L500.4050, L100.0100, L300.4310, L503.6005, L501.4020 ####[facility] [address] [place], [address] Nucleated RBC (Bld) [#/Vol] 0 10*3/uL Normal 0-5 [facility] Comment on above: Performed By: #### L 300.3900, M200.1000, L500.4050, L100.0100, L300.4310, L503.6005, L501.4020 ####[facility] [address] [place], [address] Platelet mean volume (Bld) [Entitic vol] 9.5 fL Normal 6.2-12.0 [facility] Comment on above: Performed By: #### L 300.3900, M200.1000, L500.4050, L100.0100, L300.4310, L503.6005, L501.4020 ####[facility] [address] [place], [address] Platelets (Bld) [#/Vol] 345 10*3/uL Normal 150-450 [facility] Comment on above: Performed By: #### L 300.3900, M200.1000, L500.4050, L100.0100, L300.4310, L503.6005, L501.4020 ####[facility] [address] [place], [address] RBC (Bld) [#/Vol] 4.63 10*6/uL Normal 4.2-5.4 [facility] Comment on above: Performed By: #### L 300.3900, M200.1000, L500.4050, L100.0100, L300.4310, L503.6005, L501.4020 ####[facility] [address] [place], [address] RDW SD 43.7 fl Normal 35.1-43.9 [facility] Comment on above: Performed By: #### L 300.3900, M200.1000, L500.4050, L100.0100, L300.4310, L503.6005, L501.4020 ####[facility] [address] [place], [address] WBC (Bld) [#/Vol] 21.0 10*3/uL High 4.4-11.0 [facility] Comment on above: Performed By: #### L 300.3900, M200.1000, L500.4050, L100.0100, L300.4310, L503.6005, L501.4020 ####[facility] [address] [place], [address] Chest 1 View (Portable)on Chest 1 View (Portable) Normal [facility] Clarity (U)Ordered By: Bhargavi Arce on 02-13-2024 Urine clarity Clear Clear [facility] Color (U)Ordered By: Nico Arce on 02-13-2024 Urine color determination Yellow Yellow [facility] Comprehensive Metabolic Prof ilon 02-13-2024 Albumin [Mass/Vol] 3.9 g/dL Normal 3.2-5.0 [facility] Comment on above: Order Comment: 'TROP ' Serial specimen #1, #2 or #3: 1 Performed By: #### L 300.3900, M200.1000, L500.4050, L100.0100, L300.4310, L503.6005, L501.4020 ####[facility] [address] [place], [address] Albumin/Globulin [Mass ratio] 1.0 {ratio} Normal 0.9-2.4 [facility] Comment on above: Order Comment: 'TROP ' Serial specimen #1, #2 or #3: 1 Performed By: #### L 300.3900, M200.1000, L500.4050, L100.0100, L300.4310, L503.6005, L501.4020 ####[facility] [address] [place], [address] ALK P 104 U/L Normal 45-117 [facility] Comment on above: Order Comment: 'TROP ' Serial specimen #1, #2 or #3: 1 Performed By: #### L 300.3900, M200.1000, L500.4050, L100.0100, L300.4310, L503.6005, L501.4020 ####[facility] [address] [place], [address] ALT [Catalytic activity/Vol] 17 U/L Normal 13-56 [facility] Comment on above: Order Comment: 'TROP ' Serial specimen #1, #2 or #3: 1 Performed By: #### L 300.3900, M200.1000, L500.4050, L100.0100, L300.4310, L503.6005, L501.4020 ####[facility] [address] [place], [address] AST [Catalytic activity/Vol] 18 U/L Normal 15-37 [facility] Comment on above: Order Comment: 'TROP ' Serial specimen #1, #2 or #3: 1 Performed By: #### L 300.3900, M200.1000, L500.4050, L100.0100, L300.4310, L503.6005, L501.4020 ####[facility] [address] [place], [address] Bilirubin [Mass/Vol] 1.00 mg/dL Normal 0.20-1.00 [facility] Comment on above: Order Comment: 'TROP ' Serial specimen #1, #2 or #3: 1 Result Comment: For patients on eltrombopag therapy, use of Dimension Jackson TBIL is not recommended. Performed By: #### L 300.3900, M200.1000, L500.4050, L100.0100, L300.4310, L503.6005, L501.4020 ####[facility] [address] [place], [address] BUN/CRE 12.4 RATIO Normal 10-20 [facility] Comment on above: Order Comment: 'TROP ' Serial specimen #1, #2 or #3: 1 Performed By: #### L 300.3900, M200.1000, L500.4050, L100.0100, L300.4310, L503.6005, L501.4020 ####[facility] [address] [place], [address] CA,Total 9.8 mg/dL Normal 8.5-10.1 [facility] Comment on above: Order Comment: 'TROP ' Serial specimen #1, #2 or #3: 1 Performed By: #### L 300.3900, M200.1000, L500.4050, L100.0100, L300.4310, L503.6005, L501.4020 ####[facility] [address] [place], [address] Chloride [Moles/Vol] 101 mmol/L Normal 98-107 [facility] Comment on above: Order Comment: 'TROP ' Serial specimen #1, #2 or #3: 1 Performed By: #### L 300.3900, M200.1000, L500.4050, L100.0100, L300.4310, L503.6005, L501.4020 ####[facility] [address] [place], [address] CO2 [Moles/Vol] 19.0 mmol/L Low 21.0-32.0 [facility] Comment on above: Order Comment: 'TROP ' Serial specimen #1, #2 or #3: 1 Performed By: #### L 300.3900, M200.1000, L500.4050, L100.0100, L300.4310, L503.6005, L501.4020 ####[facility] [address] [place], [address] Creatinine [Mass/Vol] 1.29 mg/dL High 0.55-1.02 [facility] Comment on above: Order Comment: 'TROP ' Serial specimen #1, #2 or #3: 1 Result Comment: The validity of the calculated GFR GFRAA in patients over70 years has not been determined. Clinical correlation isessential. Performed By: #### L 300.3900, M200.1000, L500.4050, L100.0100, L300.4310, L503.6005, L501.4020 ####[facility] [address] [place], [address] ECRCL 41.18 ml/min Normal [facility] Comment on above: Order Comment: 'TROP ' Serial specimen #1, #2 or #3: 1 Performed By: #### L 300.3900, M200.1000, L500.4050, L100.0100, L300.4310, L503.6005, L501.4020 ####[facility] [address] [place], [address] EST GFR - AA 53 mL/min Low >60 [facility] Comment on above: Order Comment: 'TROP ' Serial specimen #1, #2 or #3: 1 Result Comment: Afri can [place] GFR Calc Performed By: #### L 300.3900, M200.1000, L500.4050, L100.0100, L300.4310, L503.6005, L501.4020 ####[facility] [address] [place], [address] GAP 17 High 5-15 [facility] Comment on above: Order Comment: 'TROP ' Serial specimen #1, #2 or #3: 1 Performed By: #### L 300.3900, M200.1000, L500.4050, L100.0100, L300.4310, L503.6005, L501.4020 ####[facility] [address] [place], [address] GFR/1.73 sq M.predicted among non-blacks MDRD (S/P/Bld) [Vol rate/Area] 43 mL/min/{1.73_m2} Low >60 [facility] Comment on above: Order Comment: 'TROP ' Serial specimen #1, #2 or #3: 1 Result Comment: Non- GFR Calc Performed By: #### L 300.3900, M200.1000, L500.4050, L100.0100, L300.4310, L503.6005, L501.4020 ####[facility] [address] [place], [address] Globulin (S) [Mass/Vol] 4.0 g/dL Normal 2.2-4.2 [facility] Comment on above: Order Comment: 'TROP ' Serial specimen #1, #2 or #3: 1 Performed By: #### L 300.3900, M200.1000, L500.4050, L100.0100, L300.4310, L503.6005, L501.4020 ####[facility] [address] [place], [address] Glucose [Mass/Vol] 374 mg/dL High 74-106 [facility] Comment on above: Order Comment: 'TROP ' Serial specimen #1, #2 or #3: 1 Result Comment: Gluc ose result greater than or equal to 200 mg/dLsuggests DIABETES MELLITUS per A.D.A. criteria. Performed By: #### L 300.3900, M200.1000, L500.4050, L100.0100, L300.4310, L503.6005, L501.4020 ####[facility] [address] [place], [address] Potassium [Moles/Vol] 4.1 mmol/L Normal 3.5-5.1 [facility] Comment on above: Order Comment: 'TROP ' Serial specimen #1, #2 or #3: 1 Performed By: #### L 300.3900, M200.1000, L500.4050, L100.0100, L300.4310, L503.6005, L501.4020 ####[facility] [address] [place], [address] Sodium [Moles/Vol] 137 mmol/L Normal 136-145 [facility] Comment on above: Order Comment: 'TROP ' Serial specimen #1, #2 or #3: 1 Performed By: #### L 300.3900, M200.1000, L500.4050, L100.0100, L300.4310, L503.6005, L501.4020 ####[facility] [address] [place], [place], [id number] T PROT 7.9 g/dL Normal 6.4-8.2 [facility] Comment on above: Order Comment: 'TROP ' Serial specimen #1, #2 or #3: 1 Performed By: #### L 300.3900, M200.1000, L500.4050, L100.0100, L300.4310, L503.6005, L501.4020 ####[facility] [address] [place], [place], [id number] Urea nitrogen [Mass/Vol] 16 mg/dL Normal 7-18 [facility] Comment on above: Order Comment: 'TROP ' Serial specimen #1, #2 or #3: 1 Performed By: #### L 300.3900, M200.1000, L500.4050, L100.0100, L300.4310, L503.6005, L501.4020 ####[facility] [address] [place], [place], [id number] Emergency Department Summary on 02-13-2024 Emergency Department Summary Normal [facility] Glucose Ql (U)Ordered By: Uche Arce on 02-13-2024 Urine glucose detection 1000 mg/dl High Normal [facility] H AND P Exam - Hospitaliston 02-13-2024 H&P Exam - Hospitalist Normal [facility] International normalized rat io (INR) calculationOrdered By: Nico Arce on 02-13-2024 International normalized ratio (INR) calculation 1.1 [facility] Ketones Test strip Ql (U)Ord ered By: Nico Arce on 02-13-2024 Urine ketones detection by test strip 15 mg/dl High Negative [facility] L501.4020on 02-13-2024 TROPONIN-I HS 17 pg/mL Normal 3.0-54.0 [facility] Comment on above: Order Comment: 'TROP ' Serial specimen #1, #2 or #3: 1 Result Comment: La aguilar Note: New Test Units and Gender Specific Reference Ranges. For more information see Policy Stat Procedure Jackson High Sensitivity Troponin (TNIH) and attachments. Performed By: #### L 300.3900, M200.1000, L500.4050, L100.0100, L300.4310, L503.6005, L501.4020 ####[facility] [address] [place], [address] Lactic Acidon 02-13-2024 Lactate [Moles/Vol] 8.7 mmol/L Invalid Interpretation Code 0.4-1.9 [facility] Comment on above: Order Comment: Y Result Comment: Crit ical Result(s) Called at: 17:38:31 02/13/2024 by: EVERETT. Results read back by Duong Performed By: #### L 300.3900, M200.1000, L500.4050, L100.0100, L300.4310, L503.6005, L501.4020 ####[facility] [address] [place], [address] Partial Thromboplast Timeon 02-13-2024 aPTT Coag (Bld) [Time] 22.4 s Low 24.1-36.2 [facility] Comment on above: Performed By: #### L 300.3900, M200.1000, L500.4050, L100.0100, L300.4310, L503.6005, L501.4020 ####[facility] [address] [place], [address] Protein Test strip Ql (U)Ord ered By: Nico Arce on 02-13-2024 Urine protein assay by test strip, semi-quantitative 500 mg/dl High Negative [facility] Prothrombin Time w/INRon INR Coag (PPP) [Relative time] 1.1 {INR} Normal [facility] Comment on above: Performed By: #### L 300.3900, M200.1000, L500.4050, L100.0100, L300.4310, L503.6005, L501.4020 ####[facility] [address] [place], [address] PT Coag (PPP) [Time] 14.0 s Normal 11.7-14.9 [facility] Comment on above: Performed By: #### L 300.3900, M200.1000, L500.4050, L100.0100, L300.4310, L503.6005, L501.4020 ####[facility] [id number] [place], [address] Prothrombin timeOrdered By: Nico Arce on 02-13-2024 Prothrombin time 14.0 SECONDS 11.7-14.9 [facility] Specific gravity (U) [Rel de nsity]Ordered By: Nico Arce on 02-13-2024 Urine specific gravity measurement 1.010 1.002-1.030 [facility] Spine Cervical without Contr ason 02-13-2024 Spine Cervical without Contras Normal [facility] Squamous epithelial cells de tection in urine sediment by light microscopyOrdered By: Nico Arce on 02-13-2024 Squamous epithelial cells detection in urine sediment by light microscopy 0 SEEN /hpf [facility] Troponin IOrdered By: Julisa Arce on 02-13-2024 Troponin I 17 pg/mL 3.0-54.0 [facility] Urinalysis, Completeon 02-12 RBC 0-5 SEEN Normal 0-5 [facility] Comment on above: Order Comment: DAYAN CTOR TO SPECIFY Performed By: #### L 400.0001 ####[facility] [address] [place], [address] WBC 0-5 SEEN Normal 0-5 [facility] Comment on above: Order Comment: DAYAN CTOR TO SPECIFY Performed By: #### L 400.0001 ####[facility] [address] [place], [address] BACTERIA 0 SEEN Normal None Seen [facility] Comment on above: Order Comment: DAYAN CTOR TO SPECIFY Performed By: #### L 400.0001 ####[facility] [address] [place], [address] EPI,SQUAMOUS 0 SEEN Normal 5-10 [facility] Comment on above: Order Comment: DAYAN CTOR TO SPECIFY Performed By: #### L 400.0001 ####[facility] [address] [place], [address] Mucus Ql (Urine sed) 0 SEEN Normal [facility] Comment on above: Order Comment: DAYAN CTOR TO SPECIFY Performed By: #### L 400.0001 ####[facility] [address] [place], [place], [id number] Urine blood detectionOrdered By: Nico Arce on 02-13-2024 Urine blood detection 25 /ul High Negative [facility] Urine cultureOrdered By: Talia Arce on 02-13-2024 Urine culture Enterococcus faecalis Abnormal [facility] Urine total bilirubin detect ion by test stripOrdered By: Nico Arce on 02-13-2024 Urine total bilirubin detection by test strip Negative Negative [facility] Urobilinogen Ql (U)Ordered B y: Nico Arce on 02-13-2024 Urine urobilinogen measurement Normal mg/dl Normal [facility] White blood cell countOrdere d By: Nico Arce on 02-13-2024 White blood cell count 0-5 SEEN /hpf 0-5 [facility] aPTT Coag (PPP) [Time]Ordere d By: Nico Arce on 02-13-2024 Activated partial thromboplastin time (aPTT) in platelet poor plasma by coagulation a 22.4 Seconds Low 24.1-36.2 [facility] pH (U)Ordered By: Nico bear on 02-13-2024 Urine pH 7.0 5.0 - 8.0 [facility] Gastroenterology Visit Repor ton 01-25-2024 Gastroenterology Visit Report Normal [facility] Comprehensive Metabolic Prof ilon 01-10-2024 ALB Normal 3.2-5.0 [facility] Comment on above: Result Comment: Canc elled via OM: Order cancelled - Patient discharged Performed By: #### L 500.4050 ####[facility] [address] [place], [address] ALK P Normal 45-117 [facility] Comment on above: Result Comment: Canc elled via OM: Order cancelled - Patient discharged Performed By: #### L 500.4050 ####[facility] [address] [place], [address] ALT Normal 13-56 [facility] Comment on above: Result Comment: Canc elled via OM: Order cancelled - Patient discharged Performed By: #### L 500.4050 ####[facility] [address] [place], [address] AST Normal 15-37 [facility] Comment on above: Result Comment: Canc elled via OM: Order cancelled - Patient discharged Performed By: #### L 500.4050 ####[facility] [address] [place], [address] BUN Normal 7-18 [facility] Comment on above: Result Comment: Canc elled via OM: Order cancelled - Patient discharged Performed By: #### L 500.4050 ####[facility] [address] [place], [address] BUN/CRE Normal 10-20 [facility] Comment on above: Result Comment: Canc elled via OM: Order cancelled - Patient discharged Performed By: #### L 500.4050 ####[facility] [address] [place], [address] CA,Total Normal 8.5-10.1 [facility] Comment on above: Result Comment: Canc elled via OM: Order cancelled - Patient discharged Performed By: #### L 500.4050 ####[facility] [address] [place], [address] CL Normal 98-107 [facility] Comment on above: Result Comment: Canc elled via OM: Order cancelled - Patient discharged Performed By: #### L 500.4050 ####[facility] [address] [place], [address] CO2 Normal 21.0-32.0 [facility] Comment on above: Result Comment: Canc elled via OM: Order cancelled - Patient discharged Performed By: #### L 500.4050 ####[facility] [address] [place], [address] CREAT,SERUM Normal 0.55-1.02 [facility] Comment on above: Result Comment: Canc elled via OM: Order cancelled - Patient discharged Performed By: #### L 500.4050 ####[facility] [address] [place], [address] EST GFR Normal >60 [facility] Comment on above: Result Comment: Canc elled via OM: Order cancelled - Patient discharged Performed By: #### L 500.4050 ####[facility] [address] [place], [address] EST GFR - AA Normal >60 [facility] Comment on above: Result Comment: Canc elled via OM: Order cancelled - Patient discharged Performed By: #### L 500.4050 ####[facility] [address] [place], [address] GAP Normal 5-15 [facility] Comment on above: Result Comment: Canc elled via OM: Order cancelled - Patient discharged Performed By: #### L 500.4050 ####[facility] [address] [place], [address] GLU Normal 74-106 [facility] Comment on above: Result Comment: Canc elled via OM: Order cancelled - Patient discharged Performed By: #### L 500.4050 ####[facility] [address] [place], [address] Potassium Normal 3.5-5.1 [facility] Comment on above: Result Comment: Canc elled via OM: Order cancelled - Patient discharged Performed By: #### L 500.4050 ####[facility] [address] [place], [address] T BILI Normal 0.20-1.00 [facility] Comment on above: Result Comment: Canc elled via OM: Order cancelled - Patient discharged Performed By: #### L 500.4050 ####[facility] [address] [place], [address] T PROT Normal 6.4-8.2 [facility] Comment on above: Result Comment: Canc elled via OM: Order cancelled - Patient discharged Performed By: #### L 500.4050 ####[facility] [address] [place], [address] Comprehensive Metabolic Profil Normal 136-145 [facility] Comment on above: Result Comment: Canc elled via OM: Order cancelled - Patient discharged Performed By: #### L 500.4050 ####[facility] [address] [place], [address] Comprehensive Metabolic Prof ilon 01-09-2024 ALB Normal 3.2-5.0 [facility] Comment on above: Result Comment: Canc elled via OM: Order cancelled - Patient discharged Performed By: #### L 500.4050 ####[facility] [address] [place], [address] ALK P Normal 45-117 [facility] Comment on above: Result Comment: Canc elled via OM: Order cancelled - Patient discharged Performed By: #### L 500.4050 ####[facility] [address] [place], [address] ALT Normal 13-56 [facility] Comment on above: Result Comment: Canc elled via OM: Order cancelled - Patient discharged Performed By: #### L 500.4050 ####[facility] [address] [place], [address] AST Normal 15-37 [facility] Comment on above: Result Comment: Canc elled via OM: Order cancelled - Patient discharged Performed By: #### L 500.4050 ####[facility] [address] [place], [address] BUN Normal 7-18 [facility] Comment on above: Result Comment: Canc elled via OM: Order cancelled - Patient discharged Performed By: #### L 500.4050 ####[facility] [address] [place], [address] BUN/CRE Normal 10-20 [facility] Comment on above: Result Comment: Canc elled via OM: Order cancelled - Patient discharged Performed By: #### L 500.4050 ####[facility] [address] [place], [address] CA,Total Normal 8.5-10.1 [facility] Comment on above: Result Comment: Canc elled via OM: Order cancelled - Patient discharged Performed By: #### L 500.4050 ####[facility] [address] [place], [address] CL Normal 98-107 [facility] Comment on above: Result Comment: Canc elled via OM: Order cancelled - Patient discharged Performed By: #### L 500.4050 ####[facility] [address] [place], [address] CO2 Normal 21.0-32.0 [facility] Comment on above: Result Comment: Canc elled via OM: Order cancelled - Patient discharged Performed By: #### L 500.4050 ####[facility] [address] [place], [address] CREAT,SERUM Normal 0.55-1.02 [facility] Comment on above: Result Comment: Canc elled via OM: Order cancelled - Patient discharged Performed By: #### L 500.4050 ####[facility] [address] [place], [address] EST GFR Normal >60 [facility] Comment on above: Result Comment: Canc elled via OM: Order cancelled - Patient discharged Performed By: #### L 500.4050 ####[facility] [address] [place], [address] EST GFR - AA Normal >60 [facility] Comment on above: Result Comment: Canc elled via OM: Order cancelled - Patient discharged Performed By: #### L 500.4050 ####[facility] [address] [place], [address] GAP Normal 5-15 [facility] Comment on above: Result Comment: Canc elled via OM: Order cancelled - Patient discharged Performed By: #### L 500.4050 ####[facility] [address] [place], [address] GLU Normal 74-106 [facility] Comment on above: Result Comment: Canc elled via OM: Order cancelled - Patient discharged Performed By: #### L 500.4050 ####[facility] [address] [place], [address] Potassium Normal 3.5-5.1 [facility] Comment on above: Result Comment: Canc elled via OM: Order cancelled - Patient discharged Performed By: #### L 500.4050 ####[facility] [address] [place], [address] T BILI Normal 0.20-1.00 [facility] Comment on above: Result Comment: Canc elled via OM: Order cancelled - Patient discharged Performed By: #### L 500.4050 ####[facility] [address] [place], [address] T PROT Normal 6.4-8.2 [facility] Comment on above: Result Comment: Canc elled via OM: Order cancelled - Patient discharged Performed By: #### L 500.4050 ####[facility] [address] [place], [address] Comprehensive Metabolic Profil Normal 136-145 [facility] Comment on above: Result Comment: Canc elled via OM: Order cancelled - Patient discharged Performed By: #### L 500.4050 ####[facility] [address] [place], [address] Comprehensive Metabolic Prof ilon 01-08-2024 ALB Normal 3.2-5.0 [facility] Comment on above: Result Comment: Canc elled via OM: Order cancelled - Patient discharged Performed By: #### L 500.4050 ####[facility] [address] [place], [address] ALK P Normal 45-117 [facility] Comment on above: Result Comment: Canc elled via OM: Order cancelled - Patient discharged Performed By: #### L 500.4050 ####[facility] [address] [place], [address] ALT Normal 13-56 [facility] Comment on above: Result Comment: Canc elled via OM: Order cancelled - Patient discharged Performed By: #### L 500.4050 ####[facility] [address] [place], [address] AST Normal 15-37 [facility] Comment on above: Result Comment: Canc elled via OM: Order cancelled - Patient discharged Performed By: #### L 500.4050 ####[facility] [address] [place], [address] BUN Normal 7-18 [facility] Comment on above: Result Comment: Canc elled via OM: Order cancelled - Patient discharged Performed By: #### L 500.4050 ####[facility] [address] [place], [address] BUN/CRE Normal 10-20 [facility] Comment on above: Result Comment: Canc elled via OM: Order cancelled - Patient discharged Performed By: #### L 500.4050 ####[facility] [address] [place], [address] CA,Total Normal 8.5-10.1 [facility] Comment on above: Result Comment: Canc elled via OM: Order cancelled - Patient discharged Performed By: #### L 500.4050 ####[facility] [address] [place], [address] CL Normal 98-107 [facility] Comment on above: Result Comment: Canc elled via OM: Order cancelled - Patient discharged Performed By: #### L 500.4050 ####[facility] [address] [place], [address] CO2 Normal 21.0-32.0 [facility] Comment on above: Result Comment: Canc elled via OM: Order cancelled - Patient discharged Performed By: #### L 500.4050 ####[facility] [address] [place], [address] CREAT,SERUM Normal 0.55-1.02 [facility] Comment on above: Result Comment: Canc elled via OM: Order cancelled - Patient discharged Performed By: #### L 500.4050 ####[facility] [address] [place], [address] EST GFR Normal >60 [facility] Comment on above: Result Comment: Canc elled via OM: Order cancelled - Patient discharged Performed By: #### L 500.4050 ####[facility] [address] [place], [address] EST GFR - AA Normal >60 [facility] Comment on above: Result Comment: Canc elled via OM: Order cancelled - Patient discharged Performed By: #### L 500.4050 ####[facility] [address] [place], [address] GAP Normal 5-15 [facility] Comment on above: Result Comment: Canc elled via OM: Order cancelled - Patient discharged Performed By: #### L 500.4050 ####[facility] [address] [place], [address] GLU Normal 74-106 [facility] Comment on above: Result Comment: Canc elled via OM: Order cancelled - Patient discharged Performed By: #### L 500.4050 ####[facility] [address] [place], [address] Potassium Normal 3.5-5.1 [facility] Comment on above: Result Comment: Canc elled via OM: Order cancelled - Patient discharged Performed By: #### L 500.4050 ####[facility] [address] [place], [address] T BILI Normal 0.20-1.00 [facility] Comment on above: Result Comment: Canc elled via OM: Order cancelled - Patient discharged Performed By: #### L 500.4050 ####[facility] [address] [place], [address] T PROT Normal 6.4-8.2 [facility] Comment on above: Result Comment: Canc elled via OM: Order cancelled - Patient discharged Performed By: #### L 500.4050 ####[facility] [address] [place], [address] Comprehensive Metabolic Profil Normal 136-145 [facility] Comment on above: Result Comment: Canc elled via OM: Order cancelled - Patient discharged Performed By: #### L 500.4050 ####[facility] [address] [place], [address] CBC W/Diff, Automatedon 11-2 Absolute Neut Normal 2.0-7.7 [facility] Comment on above: Result Comment: Canc elled via OM: Order cancelled - Patient discharged Performed By: #### L 500.2500, L100.0100 ####[facility] [address] [place], [address] HCT Normal 37-47 [facility] Comment on above: Result Comment: Canc elled via OM: Order cancelled - Patient discharged Performed By: #### L 500.2500, L100.0100 ####[facility] [address] [place], [address] HGB Normal 12.0-15.0 [facility] Comment on above: Result Comment: Canc elled via OM: Order cancelled - Patient discharged Performed By: #### L 500.2500, L100.0100 ####[facility] [address] [place], [address] MCH Normal 27.0-32.0 [facility] Comment on above: Result Comment: Canc elled via OM: Order cancelled - Patient discharged Performed By: #### L 500.2500, L100.0100 ####[facility] [address] [place], [address] MCHC Normal 32-36 [facility] Comment on above: Result Comment: Canc elled via OM: Order cancelled - Patient discharged Performed By: #### L 500.2500, L100.0100 ####[facility] [address] [place], [address] MCV Normal 81-99 [facility] Comment on above: Result Comment: Canc elled via OM: Order cancelled - Patient discharged Performed By: #### L 500.2500, L100.0100 ####[facility] [address] [place], [address] NEUT% Normal 47-70 [facility] Comment on above: Result Comment: Canc elled via OM: Order cancelled - Patient discharged Performed By: #### L 500.2500, L100.0100 ####[facility] [address] [place], [address] PLT Normal 150-450 [facility] Comment on above: Result Comment: Canc elled via OM: Order cancelled - Patient discharged Performed By: #### L 500.2500, L100.0100 ####[facility] [address] [place], [address] RBC Normal 4.2-5.4 [facility] Comment on above: Result Comment: Canc elled via OM: Order cancelled - Patient discharged Performed By: #### L 500.2500, L100.0100 ####[facility] [address] [place], [address] RDW CV Normal 11.6-14.6 [facility] Comment on above: Result Comment: Canc elled via OM: Order cancelled - Patient discharged Performed By: #### L 500.2500, L100.0100 ####[facility] [address] [place], [address] RDW SD Normal 35.1-43.9 [facility] Comment on above: Result Comment: Canc elled via OM: Order cancelled - Patient discharged Performed By: #### L 500.2500, L100.0100 ####[facility] [address] [place], [address] WBC Normal 4.4-11.0 [facility] Comment on above: Result Comment: Canc elled via OM: Order cancelled - Patient discharged Performed By: #### L 500.2500, L100.0100 ####[facility] [address] [place], [address] Comprehensive Metabolic Prof ilon 01-07-2024 ALB Normal 3.2-5.0 [facility] Comment on above: Result Comment: Canc elled via OM: Order cancelled - Patient discharged Performed By: #### L 500.4050 ####[facility] [address] [place], [address] ALK P Normal 45-117 [facility] Comment on above: Result Comment: Canc elled via OM: Order cancelled - Patient discharged Performed By: #### L 500.4050 ####[facility] [address] [place], [address] ALT Normal 13-56 [facility] Comment on above: Result Comment: Canc elled via OM: Order cancelled - Patient discharged Performed By: #### L 500.4050 ####[facility] [address] [place], [address] AST Normal 15-37 [facility] Comment on above: Result Comment: Canc elled via OM: Order cancelled - Patient discharged Performed By: #### L 500.4050 ####[facility] [address] [place], [address] BUN Normal 7-18 [facility] Comment on above: Result Comment: Canc elled via OM: Order cancelled - Patient discharged Performed By: #### L 500.4050 ####[facility] [address] [place], [address] Result Comment: Canc elled via OM: MD Ordered Performed By: #### L 500.2500, L100.0100 ####[facility] [address] [place], [address] BUN/CRE Normal 10-20 [facility] Comment on above: Result Comment: Canc elled via OM: Order cancelled - Patient discharged Performed By: #### L 500.4050 ####[facility] [address] [place], [address] Result Comment: Canc elled via OM: MD Ordered Performed By: #### L 500.2500, L100.0100 ####[facility] [address] [place], [address] CA,Total Normal 8.5-10.1 [facility] Comment on above: Result Comment: Canc elled via OM: Order cancelled - Patient discharged Performed By: #### L 500.4050 ####[facility] [address] [place], [address] Result Comment: Canc elled via OM: MD Ordered Performed By: #### L 500.2500, L100.0100 ####[facility] [address] [place], [address] CL Normal 98-107 [facility] Comment on above: Result Comment: Canc elled via OM: Order cancelled - Patient discharged Performed By: #### L 500.4050 ####[facility] [address] [place], [address] Result Comment: Canc elled via OM: MD Ordered Performed By: #### L 500.2500, L100.0100 ####[facility] [address] [place], [address] CO2 Normal 21.0-32.0 [facility] Comment on above: Result Comment: Canc elled via OM: Order cancelled - Patient discharged Performed By: #### L 500.4050 ####[facility] [address] [place], [address] Result Comment: Canc elled via OM: MD Ordered Performed By: #### L 500.2500, L100.0100 ####[facility] [address] [place], [address] CREAT,SERUM Normal 0.55-1.02 [facility] Comment on above: Result Comment: Canc elled via OM: Order cancelled - Patient discharged Performed By: #### L 500.4050 ####[facility] [address] [place], [address] Result Comment: Canc elled via OM: MD Ordered Performed By: #### L 500.2500, L100.0100 ####[facility] [address] [place], [address] EST GFR Normal >60 [facility] Comment on above: Result Comment: Canc elled via OM: Order cancelled - Patient discharged Performed By: #### L 500.4050 ####[facility] [address] [place], [address] Result Comment: Canc elled via OM: MD Ordered Performed By: #### L 500.2500, L100.0100 ####[facility] [address] [place], [address] EST GFR - AA Normal >60 [facility] Comment on above: Result Comment: Canc elled via OM: Order cancelled - Patient discharged Performed By: #### L 500.4050 ####[facility] [address] [place], [address] Result Comment: Canc elled via OM: MD Ordered Performed By: #### L 500.2500, L100.0100 ####[facility] [address] [place], [address] GAP Normal 5-15 [facility] Comment on above: Result Comment: Canc elled via OM: Order cancelled - Patient discharged Performed By: #### L 500.4050 ####[facility] [address] [place], [address] Result Comment: Canc elled via OM: MD Ordered Performed By: #### L 500.2500, L100.0100 ####[facility] [address] [place], [address] GLU Normal 74-106 [facility] Comment on above: Result Comment: Canc elled via OM: Order cancelled - Patient discharged Performed By: #### L 500.4050 ####[facility] [address] [place], [address] Result Comment: Canc elled via OM: MD Ordered Performed By: #### L 500.2500, L100.0100 ####[facility] [address] [place], [address] Potassium Normal 3.5-5.1 [facility] Comment on above: Result Comment: Canc elled via OM: Order cancelled - Patient discharged Performed By: #### L 500.4050 ####[facility] [address] [place], [address] Result Comment: Canc elled via OM: MD Ordered Performed By: #### L 500.2500, L100.0100 ####[facility] [address] [place], [address] T BILI Normal 0.20-1.00 [facility] Comment on above: Result Comment: Canc elled via OM: Order cancelled - Patient discharged Performed By: #### L 500.4050 ####[facility] [address] [place], [address] T PROT Normal 6.4-8.2 [facility] Comment on above: Result Comment: Canc elled via OM: Order cancelled - Patient discharged Performed By: #### L 500.4050 ####[facility] [address] [place], [address] Comprehensive Metabolic Profil Normal 136-145 [facility] Comment on above: Result Comment: Canc elled via OM: Order cancelled - Patient discharged Performed By: #### L 500.4050 ####[facility] [address] [place], [address] Result Comment: Canc elled via OM: MD Ordered Performed By: #### L 500.2500, L100.0100 ####[facility] [address] [place], [address] CBC W/Diff, Automatedon 11-2 Absolute Neut Normal 2.0-7.7 [facility] Comment on above: Result Comment: Canc elled via OM: Order cancelled - Patient discharged Performed By: #### L 500.2500, L100.0100 ####[facility] [address] [place], [address] HCT Normal 37-47 [facility] Comment on above: Result Comment: Canc elled via OM: Order cancelled - Patient discharged Performed By: #### L 500.2500, L100.0100 ####[facility] [address] [place], [address] HGB Normal 12.0-15.0 [facility] Comment on above: Result Comment: Canc elled via OM: Order cancelled - Patient discharged Performed By: #### L 500.2500, L100.0100 ####[facility] [address] [place], [address] MCH Normal 27.0-32.0 [facility] Comment on above: Result Comment: Canc elled via OM: Order cancelled - Patient discharged Performed By: #### L 500.2500, L100.0100 ####[facility] [address] [place], [address] MCHC Normal 32-36 [facility] Comment on above: Result Comment: Canc elled via OM: Order cancelled - Patient discharged Performed By: #### L 500.2500, L100.0100 ####[facility] [address] [place], [address] MCV Normal 81-99 [facility] Comment on above: Result Comment: Canc elled via OM: Order cancelled - Patient discharged Performed By: #### L 500.2500, L100.0100 ####[facility] [address] [place], [address] NEUT% Normal 47-70 [facility] Comment on above: Result Comment: Canc elled via OM: Order cancelled - Patient discharged Performed By: #### L 500.2500, L100.0100 ####[facility] [address] [place], [address] PLT Normal 150-450 [facility] Comment on above: Result Comment: Canc elled via OM: Order cancelled - Patient discharged Performed By: #### L 500.2500, L100.0100 ####[facility] [address] [place], [address] RBC Normal 4.2-5.4 [facility] Comment on above: Result Comment: Canc elled via OM: Order cancelled - Patient discharged Performed By: #### L 500.2500, L100.0100 ####[facility] [address] [place], [address] RDW CV Normal 11.6-14.6 [facility] Comment on above: Result Comment: Canc elled via OM: Order cancelled - Patient discharged Performed By: #### L 500.2500, L100.0100 ####[facility] [address] [place], [address] RDW SD Normal 35.1-43.9 [facility] Comment on above: Result Comment: Canc elled via OM: Order cancelled - Patient discharged Performed By: #### L 500.2500, L100.0100 ####[facility] [address] [place], [address] WBC Normal 4.4-11.0 [facility] Comment on above: Result Comment: Canc elled via OM: Order cancelled - Patient discharged Performed By: #### L 500.2500, L100.0100 ####[facility] [address] [place], [address] Comprehensive Metabolic Prof clint 01-06-2024 ALB Normal 3.2-5.0 [facility] Comment on above: Result Comment: Canc elled via OM: Order cancelled - Patient discharged Performed By: #### L 500.4050 ####[facility] [address] [place], [address] ALK P Normal 45-117 [facility] Comment on above: Result Comment: Canc elled via OM: Order cancelled - Patient discharged Performed By: #### L 500.4050 ####[facility] [address] [place], [address] ALT Normal 13-56 [facility] Comment on above: Result Comment: Canc elled via OM: Order cancelled - Patient discharged Performed By: #### L 500.4050 ####[facility] [address] [place], [address] AST Normal 15-37 [facility] Comment on above: Result Comment: Canc elled via OM: Order cancelled - Patient discharged Performed By: #### L 500.4050 ####[facility] [address] [place], [address] BUN Normal 7-18 [facility] Comment on above: Result Comment: Canc elled via OM: Order cancelled - Patient discharged Performed By: #### L 500.4050 ####[facility] [address] [place], [address] Result Comment: Canc elled via OM: MD Ordered Performed By: #### L 500.2500, L100.0100 ####[facility] [address] [place], [address] BUN/CRE Normal 10-20 [facility] Comment on above: Result Comment: Canc elled via OM: Order cancelled - Patient discharged Performed By: #### L 500.4050 ####[facility] [address] [place], [address] Result Comment: Canc elled via OM: MD Ordered Performed By: #### L 500.2500, L100.0100 ####[facility] [address] [place], [address] CA,Total Normal 8.5-10.1 [facility] Comment on above: Result Comment: Canc elled via OM: Order cancelled - Patient discharged Performed By: #### L 500.4050 ####[facility] [address] [place], [address] Result Comment: Canc elled via OM: MD Ordered Performed By: #### L 500.2500, L100.0100 ####[facility] [address] [place], [address] CL Normal 98-107 [facility] Comment on above: Result Comment: Canc elled via OM: Order cancelled - Patient discharged Performed By: #### L 500.4050 ####[facility] [address] [place], [address] Result Comment: Canc elled via OM: MD Ordered Performed By: #### L 500.2500, L100.0100 ####[facility] [address] [place], [address] CO2 Normal 21.0-32.0 [facility] Comment on above: Result Comment: Canc elled via OM: Order cancelled - Patient discharged Performed By: #### L 500.4050 ####[facility] [address] [place], [address] Result Comment: Canc elled via OM: MD Ordered Performed By: #### L 500.2500, L100.0100 ####[facility] [address] [place], [address] CREAT,SERUM Normal 0.55-1.02 [facility] Comment on above: Result Comment: Canc elled via OM: Order cancelled - Patient discharged Performed By: #### L 500.4050 ####[facility] [address] [place], [address] Result Comment: Canc elled via OM: MD Ordered Performed By: #### L 500.2500, L100.0100 ####[facility] [address] [place], [address] EST GFR Normal >60 [facility] Comment on above: Result Comment: Canc elled via OM: Order cancelled - Patient discharged Performed By: #### L 500.4050 ####[facility] [address] [place], [address] Result Comment: Canc elled via OM: MD Ordered Performed By: #### L 500.2500, L100.0100 ####[facility] [address] [place], [address] EST GFR - AA Normal >60 [facility] Comment on above: Result Comment: Canc elled via OM: Order cancelled - Patient discharged Performed By: #### L 500.4050 ####[facility] [address] [place], [address] Result Comment: Canc elled via OM: MD Ordered Performed By: #### L 500.2500, L100.0100 ####[facility] [address] [place], [address] GAP Normal 5-15 [facility] Comment on above: Result Comment: Canc elled via OM: Order cancelled - Patient discharged Performed By: #### L 500.4050 ####[facility] [address] [place], [address] Result Comment: Canc elled via OM: MD Ordered Performed By: #### L 500.2500, L100.0100 ####[facility] [address] [place], [address] GLU Normal 74-106 [facility] Comment on above: Result Comment: Canc elled via OM: Order cancelled - Patient discharged Performed By: #### L 500.4050 ####[facility] [address] [place], [address] Result Comment: Canc elled via OM: MD Ordered Performed By: #### L 500.2500, L100.0100 ####[facility] [address] [place], [address] Potassium Normal 3.5-5.1 [facility] Comment on above: Result Comment: Canc elled via OM: Order cancelled - Patient discharged Performed By: #### L 500.4050 ####[facility] [address] [place], [address] Result Comment: Canc elled via OM: MD Ordered Performed By: #### L 500.2500, L100.0100 ####[facility] [address] [place], [address] T BILI Normal 0.20-1.00 [facility] Comment on above: Result Comment: Canc elled via OM: Order cancelled - Patient discharged Performed By: #### L 500.4050 ####[facility] [address] [place], [address] T PROT Normal 6.4-8.2 [facility] Comment on above: Result Comment: Canc elled via OM: Order cancelled - Patient discharged Performed By: #### L 500.4050 ####[facility] [address] [place], [address] Comprehensive Metabolic Profil Normal 136-145 [facility] Comment on above: Result Comment: Canc elled via OM: Order cancelled - Patient discharged Performed By: #### L 500.4050 ####[facility] [address] [place], [address] Result Comment: Canc elled via OM: MD Ordered Performed By: #### L 500.2499, L100.0100 ####[facility] [address] [place], [address] ALP [Catalytic activity/Vol] Ordered By: Zahra Palacio on 01-05-2024 Serum or plasma alkaline phosphatase measurement 65 U/L 45-117 [facility] ALT [Catalytic activity/Vol] Ordered By: Zahra Palacio on 01-05-2024 Serum or plasma alanine aminotransferase (ALT) measurement 19 U/L 13-56 [facility] Absolute neutrophil countOrd ered By: Zahra Palacio on 01-05-2024 Absolute neutrophil count 5.0 X10^3/uL 2.0-7.7 [facility] Albumin [Mass/Vol]Ordered By : Zahra Palacio on 01-05-2024 Serum or plasma albumin measurement (mass/volume) 3.1 g/dL Low 3.2-5.0 [facility] Albumin to globulin ratioOrd ered By: Zahra Palacio on 01-05-2024 Albumin to globulin ratio 1.0 RATIO 0.9-2.4 [facility] Basic Metabolic Profile (BMP )on 01-05-2024 BUN Normal 7-18 [facility] Comment on above: Result Comment: Canc elled via OM: MD Ordered Performed By: #### L 500.2499, L100.0100 ####[facility] [address] [place], [address] BUN/CRE Normal 10-20 [facility] Comment on above: Result Comment: Canc elled via OM: MD Ordered Performed By: #### L 500.2500, L100.0100 ####[facility] [address] [place], [address] CA,Total Normal 8.5-10.1 [facility] Comment on above: Result Comment: Canc elled via OM: MD Ordered Performed By: #### L 500.2500, L100.0100 ####[facility] [address] [place], [address] CL Normal 98-107 [facility] Comment on above: Result Comment: Canc elled via OM: MD Ordered Performed By: #### L 500.2500, L100.0100 ####[facility] [address] [place], [address] CO2 Normal 21.0-32.0 [facility] Comment on above: Result Comment: Canc elled via OM: MD Ordered Performed By: #### L 500.2500, L100.0100 ####[facility] [address] [place], [address] CREAT,SERUM Normal 0.55-1.02 [facility] Comment on above: Result Comment: Canc elled via OM: MD Ordered Performed By: #### L 500.2500, L100.0100 ####[facility] [address] [place], [address] EST GFR Normal >60 [facility] Comment on above: Result Comment: Canc elled via OM: MD Ordered Performed By: #### L 500.2500, L100.0100 ####[facility] [address] [place], [address] EST GFR - AA Normal >60 [facility] Comment on above: Result Comment: Canc elled via OM: MD Ordered Performed By: #### L 500.2500, L100.0100 ####[facility] [address] [place], [address] GAP Normal 5-15 [facility] Comment on above: Result Comment: Canc elled via OM: MD Ordered Performed By: #### L 500.2500, L100.0100 ####[facility] [address] [place], [address] GLU Normal 74-106 [facility] Comment on above: Result Comment: Canc elled via OM: MD Ordered Performed By: #### L 500.2500, L100.0100 ####[facility] [address] [place], [address] Potassium Normal 3.5-5.1 [facility] Comment on above: Result Comment: Canc elled via OM: MD Ordered Performed By: #### L 500.2500, L100.0100 ####[facility] [address] [place], [address] Basic Metabolic Profile (BMP) Normal 136-145 [facility] Comment on above: Result Comment: Canc elled via OM: MD Ordered Performed By: #### L 500.2500, L100.0100 ####[facility] [address] [place], [address] Basophil percentageOrdered B y: Zahra Palacio on 01-05-2024 Basophil percentage 0.1 % 0-1 [facility] Bedside Glucoseon 01-05-2024 FINGERSTICK GLU 183 mg/dL High 74-106 [facility] Comment on above: Result Comment: GERALDO GEMENT OF PATIENT CARE PER NURSING PROTOCOL Performed By: #### L 501.080 ####[facility] [address] [place], [address] FINGERSTICK GLU 153 mg/dL High 74-106 [facility] Comment on above: Result Comment: GERALDO GEMENT OF PATIENT CARE PER NURSING PROTOCOL Performed By: #### L 501.080 ####[facility] [address] [place], [address] FINGERSTICK GLU 169 mg/dL High 74-106 [facility] Comment on above: Result Comment: GERALDO GEMENT OF PATIENT CARE PER NURSING PROTOCOL Performed By: #### L 501.080 ####[facility] [address] [place], [address] Bilirubin, totalOrdered By: Zahra Palacio on 01-05-2024 Bilirubin, total 0.60 mg/dL 0.20-1.00 [facility] Blood urea nitrogen (BUN)/cr eatinine ratioOrdered By: Zahra Palacio on 01-05-2024 Blood urea nitrogen (BUN)/creatinine ratio 17.0 RATIO 10-20 [facility] CBC W/Diff, Automatedon 12-14 Absolute Lymph 1.78 X10 3/uL Normal 0.83-4.51 [facility] Comment on above: Performed By: #### L 500.2500, L100.0100 ####[facility] [address] [place], [address] Absolute Neut 5.0 X10 3/uL Normal 2.0-7.7 [facility] Comment on above: Performed By: #### L 500.2500, L100.0100 ####[facility] [address] [place], [address] Basophils/100 WBC (Bld) 0.1 % Normal 0-1 [facility] Comment on above: Performed By: #### L 500.2500, L100.0100 ####[facility] [address] [place], [address] Eosinophils/100 WBC (Bld) 3.1 % Normal 0-5 [facility] Comment on above: Performed By: #### L 500.2500, L100.0100 ####[facility] [address] [place], [address] Erythrocyte distribution width (RBC) [Ratio] 13.2 % Normal 11.6-14.6 [facility] Comment on above: Performed By: #### L 500.2500, L100.0100 ####[facility] [address] [place], [address] Hematocrit (Bld) [Volume fraction] 35.0 % Low 37-47 [facility] Comment on above: Performed By: #### L 500.2500, L100.0100 ####[facility] [address] [place], [address] Hemoglobin (Bld) [Mass/Vol] 11.1 g/dL Low 12.0-15.0 [facility] Comment on above: Performed By: #### L 500.2500, L100.0100 ####[facility] [address] [place], [address] IG% 0.400 Normal 0.0-0.9 [facility] Comment on above: Result Comment: IG% - Immature Granulocytes (promyelocytes, myelocytes andmetamyelocytes) > 1% indicates that a LEFT SHIFT is Present. Performed By: #### L 500.2500, L100.0100 ####[facility] [address] [place], [address] Lymphocytes/100 WBC (Bld) 23.3 % Normal 19-41 [facility] Comment on above: Performed By: #### L 500.2500, L100.0100 ####[facility] [address] [place], [address] MCH (RBC) [Entitic mass] 29.8 pg Normal 27.0-32.0 [facility] Comment on above: Performed By: #### L 500.2500, L100.0100 ####[facility] [address] [place], [address] MCHC (RBC) [Mass/Vol] 31.7 g/dL Low 32-36 [facility] Comment on above: Performed By: #### L 500.2500, L100.0100 ####[facility] [address] [place], [address] MCV (RBC) [Entitic vol] 93.8 fL Normal 81-99 [facility] Comment on above: Performed By: #### L 500.2500, L100.0100 ####[facility] [address] [place], [address] Monocytes/100 WBC (Bld) 6.9 % Normal 0-10 [facility] Comment on above: Performed By: #### L 500.2500, L100.0100 ####[facility] [address] [place], [address] Neutrophils/100 WBC (Bld) 66.2 % Normal 47-70 [facility] Comment on above: Performed By: #### L 500.2500, L100.0100 ####[facility] [address] [place], [address] Nucleated RBC (Bld) [#/Vol] 0 10*3/uL Normal 0-5 [facility] Comment on above: Performed By: #### L 500.2500, L100.0100 ####[facility] [address] [place], [address] Platelet mean volume (Bld) [Entitic vol] 10.8 fL Normal 6.2-12.0 [facility] Comment on above: Performed By: #### L 500.2500, L100.0100 ####[facility] [address] [place], [address] Platelets (Bld) [#/Vol] 219 10*3/uL Normal 150-450 [facility] Comment on above: Performed By: #### L 500.2500, L100.0100 ####[facility] [address] [place], [address] RBC (Bld) [#/Vol] 3.73 10*6/uL Low 4.2-5.4 [facility] Comment on above: Performed By: #### L 500.2500, L100.0100 ####[facility] [address] [place], [address] RDW SD 44.8 fl High 35.1-43.9 [facility] Comment on above: Performed By: #### L 500.2500, L100.0100 ####[facility] [address] [place], [address] WBC (Bld) [#/Vol] 7.6 10*3/uL Normal 4.4-11.0 [facility] Comment on above: Performed By: #### L 500.2500, L100.0100 ####[facility] [address] [place], [address] Calcium [Mass/Vol]Ordered By : Zahra Palacio on 01-05-2024 Serum or plasma calcium measurement (mass/volume) 8.5 mg/dL 8.5-10.1 [facility] Carbon dioxide measurementOr dered By: Zahra Palacio on 01-05-2024 Carbon dioxide measurement 27.0 mmol/L 21.0-32.0 [facility] Chloride measurementOrdered By: Zahra Palacio on 01-05-2024 Chloride measurement 108 mmol/L High 98-107 [facility] Comprehensive Metabolic Prof ilon 01-05-2024 Albumin [Mass/Vol] 3.1 g/dL Low 3.2-5.0 [facility] Comment on above: Performed By: #### L 500.4050 ####[facility] [address] [place], [address] Albumin/Globulin [Mass ratio] 1.0 {ratio} Normal 0.9-2.4 [facility] Comment on above: Performed By: #### L 500.4050 ####[facility] [address] [place], [address] ALK P 65 U/L Normal 45-117 [facility] Comment on above: Performed By: #### L 500.4050 ####[facility] [address] [place], [address] ALT [Catalytic activity/Vol] 19 U/L Normal 13-56 [facility] Comment on above: Performed By: #### L 500.4050 ####[facility] [address] [place], [address] AST [Catalytic activity/Vol] 14 U/L Low 15-37 [facility] Comment on above: Performed By: #### L 500.4050 ####[facility] [address] [place], [address] Bilirubin [Mass/Vol] 0.60 mg/dL Normal 0.20-1.00 [facility] Comment on above: Result Comment: For patients on eltrombopag therapy, use of Dimension Jackson TBIL is not recommended. Performed By: #### L 500.4050 ####[facility] [address] [place], [address] BUN/CRE 17.0 RATIO Normal 10-20 [facility] Comment on above: Performed By: #### L 500.4050 ####[facility] [address] [place], [address] CA,Total 8.5 mg/dL Normal 8.5-10.1 [facility] Comment on above: Performed By: #### L 500.4050 ####[facility] [address] [place], [address] Chloride [Moles/Vol] 108 mmol/L High 98-107 [facility] Comment on above: Performed By: #### L 500.4050 ####[facility] [address] [place], [address] CO2 [Moles/Vol] 27.0 mmol/L Normal 21.0-32.0 [facility] Comment on above: Performed By: #### L 500.4050 ####[facility] [address] [place], [address] Creatinine [Mass/Vol] 0.82 mg/dL Normal 0.55-1.02 [facility] Comment on above: Result Comment: The validity of the calculated GFR GFRAA in patients over70 years has not been determined. Clinical correlation isessential. Performed By: #### L 500.4050 ####[facility] [address] [place], [address] ECRCL 64.01 ml/min Normal [facility] Comment on above: Performed By: #### L 500.4050 ####[facility] [address] [place], [address] EST GFR - AA 88 mL/min Normal >60 [facility] Comment on above: Result Comment: Afri can [place] GFR Calc Performed By: #### L 500.4050 ####[facility] [address] [place], [address] GAP 6 Normal 5-15 [facility] Comment on above: Performed By: #### L 500.4050 ####[facility] [address] [place], [address] GFR/1.73 sq M.predicted among non-blacks MDRD (S/P/Bld) [Vol rate/Area] 73 mL/min/{1.73_m2} Normal >60 [facility] Comment on above: Result Comment: Non- GFR Calc Performed By: #### L 500.4050 ####[facility] [address] [place], [address] Globulin (S) [Mass/Vol] 3.0 g/dL Normal 2.2-4.2 [facility] Comment on above: Performed By: #### L 500.4050 ####[facility] [address] [place], [address] Glucose [Mass/Vol] 199 mg/dL High 74-106 [facility] Comment on above: Result Comment: Fast ing Glucose result greater than or equal to 126 mg/dLsuggests DIABETES MELLITUS per A.D.A. criteria. Performed By: #### L 500.4050 ####[facility] [address] [place], [address] Potassium [Moles/Vol] 3.4 mmol/L Low 3.5-5.1 [facility] Comment on above: Performed By: #### L 500.4050 ####[facility] [address] [place], [address] Sodium [Moles/Vol] 141 mmol/L Normal 136-145 [facility] Comment on above: Performed By: #### L 500.4050 ####[facility] [address] [place], [address] T PROT 6.1 g/dL Low 6.4-8.2 [facility] Comment on above: Performed By: #### L 500.4050 ####[facility] [address] [place], [place], [address] Urea nitrogen [Mass/Vol] 14 mg/dL Normal 7-18 [facility] Comment on above: Performed By: #### L 500.4050 ####[facility] [address] [place], [address] Creatinine [Mass/Vol]Ordered By: Zahra Palacio on 01-05-2024 Serum or plasma creatinine measurement (mass/volume) 0.82 mg/dL 0.55-1.02 [facility] Culture, Blood (WB)on 2023 CUB No growth in 5 days. Normal [facility] Comment on above: Performed By: #### M 200.1000 ####[facility] [address] [place], [address] Discharge Instructionon 12-14 Discharge Instruction Normal [facility] Eosinophil percentageOrdered By: Zahra Palacio on 01-05-2024 Eosinophil percentage 3.1 % 0-5 [facility] Erythrocyte distribution wid th (RBC) [Entitic vol]Ordered By: Zahra Palacio on 01-05-2024 Erythrocyte distribution width standard deviation 44.8 fl High 35.1-43.9 [facility] Erythrocyte distribution wid th (RBC) [Ratio]Ordered By: Zahra Palacio on 01-05-2024 Erythrocyte distribution width ratio 13.2 % 11.6-14.6 [facility] Estimated glomerular filtrat ion rate (GFR) AmericanOrdered By: Zahra Palacio on 01-05-2024 Estimated glomerular filtration rate (GFR) 88 mL/min >60 [facility] Estimation of creatinine maribel aranceOrdered By: Zahra Palacio on 01-05-2024 Estimation of creatinine clearance 64.01 ml/min [facility] Glomerular filtration rate ( GFR) estimationOrdered By: Zahra Palacio on 01-05-2024 Glomerular filtration rate (GFR) estimation 73 mL/min >60 [facility] Glucose measurementOrdered B y: Zahra Palacio on 01-05-2024 Glucose measurement 199 mg/dL High 74-106 [facility] Glucose measurement at bedsi deOrdered By: Zahra Palacio on 01-05-2024 Glucose measurement at bedside 183 mg/dL High 74-106 [facility] Hematocrit Auto (Bld) [Volum e fraction]Ordered By: Zahra Palacio on 01-05-2024 Automated blood hematocrit (percentage) 35.0 % Low 37-47 [facility] Hemoglobin measurementOrdere d By: Zahra Palacio on 01-05-2024 Hemoglobin measurement 11.1 g/dL Low 12.0-15.0 [facility] Immature granulocytes/100 WB C Auto (Bld)Ordered By: Zahra Palacio on 01-05-2024 Automated immature granulocyte percentage 0.400 % 0.0-0.9 [facility] Lymphocytes Auto (Unsp spec) [#/Vol]Ordered By: Zahra Palacio on 01-05-2024 Absolute lymphocyte count 1.78 X10^3/uL 0.83-4.51 [facility] Lymphocytes/100 WBC Auto (Un sp spec)Ordered By: Zahra Palacio on 01-05-2024 Automated lymphocyte count as percentage of total leukocytes 23.3 % 19-41 [facility] MCV (RBC) [Entitic vol]Order ed By: Zahra Palacio on 01-05-2024 MCV (mean corpuscular volume) determination 93.8 fL 81-99 [facility] Mean corpuscular hemoglobin (MCH) determinationOrdered By: Zahra Palacio on 01-05-2024 Mean corpuscular hemoglobin (MCH) determination 29.8 pg 27.0-32.0 [facility] Mean corpuscular hemoglobin concentration (MCHC) determinationOrdered By: Zahra Palacio on 01-05-2024 Mean corpuscular hemoglobin concentration (MCHC) determination 31.7 g/dL Low 32-36 [facility] Mean platelet volume determi nationOrdered By: Zahra Palacio on 01-05-2024 Mean platelet volume determination 10.8 fl 6.2-12.0 [facility] Monocyte percentageOrdered B y: Zahra Palacio on 01-05-2024 Monocyte percentage 6.9 % 0-10 [facility] Neutrophil percentageOrdered By: Zahra Palacio on 01-05-2024 Neutrophil percentage 66.2 % 47-70 [facility] No Panel InformationOrdered By: Zahra Palacio on 01-05-2024 14 U/L Low 15-37 [facility] Nucleated red blood cell per centageOrdered By: Zahra Palacio on 01-05-2024 Nucleated red blood cell percentage 0 % 0-5 [facility] Platelet countOrdered By: Didier Palacio on 01-05-2024 Platelet count 219 K/mm3 150-450 [facility] Potassium measurementOrdered By: Zahra Palacio on 01-05-2024 Potassium measurement 3.4 mmol/L Low 3.5-5.1 [facility] RBC Auto (Bld) [#/Vol]Ordere d By: Zahra Palacio on 01-05-2024 Automated blood erythrocyte count 3.73 M/mm3 Low 4.2-5.4 [facility] Serum anion gap measurementO rdered By: Zahra Palacio on 01-05-2024 Serum anion gap measurement 6 5-15 [facility] Serum globulin measurementOr dered By: Zahra Palacio on 01-05-2024 Serum globulin measurement 3.0 g/dL 2.2-4.2 [facility] Sodium levelOrdered By: Trish Palacio on 01-05-2024 Sodium level 141 mmol/L 136-145 [facility] Total proteinOrdered By: Rhoda Palacio on 01-05-2024 Total protein 6.1 g/dL Low 6.4-8.2 [facility] Urea nitrogen [Mass/Vol]Orde red By: Zahra Palacio on 01-05-2024 Serum or plasma urea nitrogen measurement (mass/volume) 14 mg/dL - [facility] White blood cell (WBC) count Ordered By: Zahra Palacio on 01-05-2024 White blood cell (WBC) count 7.6 K/mm3 4.4-11.0 [facility] 12 Lead EKGon 01-04-2024 12 Lead EKG Normal [facility] Basic Metabolic Profile (BMP )on 01-04-2024 BUN Normal 08-29 [facility] Comment on above: Result Comment: OVER LAP WITH CMP ORDERED BY DR. ZAHRA APLACIO Performed By: #### L 500.2500 ####[facility] [address] [place], [address] Result Comment: Canc elled via OM: MD Ordered Performed By: #### L 100.0100, L500.2500 ####[facility] [address] [place], [address] BUN/CRE Normal - [facility] Comment on above: Result Comment: OVER LAP WITH CMP ORDERED BY DR. ZAHRA PALACIO Performed By: #### L 500.2500 ####[facility] [address] [place], [address] Result Comment: Canc elled via OM: MD Ordered Performed By: #### L 100.0100, L500.2500 ####[facility] [address] [place], [address] CA,Total Normal 8.5-10.1 [facility] Comment on above: Result Comment: OVER LAP WITH CMP ORDERED BY DR. ZAHRA PALACIO Performed By: #### L 500.2500 ####[facility] [address] [place], [address] Result Comment: Canc elled via OM: Ordered Performed By: #### L 100.0100, L500.2500 ####[facility] [address] [place], [address] CL Normal 98-107 [facility] Comment on above: Result Comment: OVER LAP WITH CMP ORDERED BY DR. ZAHRA PALACIO Performed By: #### L 500.2500 ####[facility] [address] [place], [address] Result Comment: Canc elled via OM: MD Ordered Performed By: #### L 100.0100, L500.2500 ####[facility] [address] [place], [address] CO2 Normal 21.0-32.0 [facility] Comment on above: Result Comment: OVER LAP WITH CMP ORDERED BY DR. ZAHRA PALACIO Performed By: #### L 500.2500 ####[facility] [address] [place], [address] Result Comment: Canc elled via OM: MD Ordered Performed By: #### L 100.0100, L500.2500 ####[facility] [address] [place], [address] CREAT,SERUM Normal 0.55-1.02 [facility] Comment on above: Result Comment: OVER LAP WITH CMP ORDERED BY DR. ZAHRA PALACIO Performed By: #### L 500.2500 ####[facility] [address] [place], [address] Result Comment: Canc elled via OM: MD Ordered Performed By: #### L 100.0100, L500.2500 ####[facility] [address] [place], [address] EST GFR Normal >60 [facility] Comment on above: Result Comment: OVER LAP WITH CMP ORDERED BY DR. ZAHRA PALACIO Performed By: #### L 500.2500 ####[facility] [address] [place], [address] Result Comment: Canc elled via OM: MD Ordered Performed By: #### L 100.0100, L500.2500 ####[facility] [address] [place], [address] EST GFR - AA Normal >60 [facility] Comment on above: Result Comment: OVER LAP WITH CMP ORDERED BY DR. ZAHRA PALACIO Performed By: #### L 500.2500 ####[facility] [address] [place], [address] Result Comment: Canc elled via OM: MD Ordered Performed By: #### L 100.0100, L500.2500 ####[facility] [address] [place], [address] GAP Normal 5-15 [facility] Comment on above: Result Comment: OVER LAP WITH CMP ORDERED BY DR. ZAHRA PALACIO Performed By: #### L 500.2500 ####[facility] [address] [place], [address] Result Comment: Canc elled via OM: MD Ordered Performed By: #### L 100.0100, L500.2500 ####[facility] [address] [place], [address] GLU Normal 74-106 [facility] Comment on above: Result Comment: OVER LAP WITH CMP ORDERED BY DR. ZAHRA PALACIO Performed By: #### L 500.2500 ####[facility] [address] [place], [address] Result Comment: Canc elled via OM: MD Ordered Performed By: #### L 100.0100, L500.2500 ####[facility] [address] [place], [address] Potassium Normal 3.5-5.1 [facility] Comment on above: Result Comment: OVER LAP WITH CMP ORDERED BY DR. ZAHRA PALACIO Performed By: #### L 500.2500 ####[facility] [address] [place], [address] Result Comment: Canc elled via OM: MD Ordered Performed By: #### L 100.0100, L500.2500 ####[facility] [address] [place], [address] Basic Metabolic Profile (BMP) Normal 136-145 [facility] Comment on above: Result Comment: OVER LAP WITH CMP ORDERED BY DR. ZAHRA PALACIO Performed By: #### L 500.2500 ####[facility] [address] [place], [address] Result Comment: Canc elled via OM: MD Ordered Performed By: #### L 100.0100, L500.2500 ####[facility] [address] [place], [address] Bedside Glucoseon 01-04-2024 FINGERSTICK GLU 173 mg/dL High 74-106 [facility] Comment on above: Result Comment: GERALDO GEMENT OF PATIENT CARE PER NURSING PROTOCOL Performed By: #### L 501.080 ####[facility] [address] [place], [address] FINGERSTICK GLU 159 mg/dL High 74-106 [facility] Comment on above: Result Comment: GERALDO GEMENT OF PATIENT CARE PER NURSING PROTOCOL Performed By: #### L 501.080 ####[facility] [address] [place], [address] FINGERSTICK GLU 201 mg/dL High 74-106 [facility] Comment on above: Result Comment: GERALDO GEMENT OF PATIENT CARE PER NURSING PROTOCOL Performed By: #### L 501.080 ####[facility] [address] [place], [address] CBC W/Diff, Automatedon 11-2 Absolute Lymph 2.34 X10 3/uL Normal 0.83-4.51 [facility] Comment on above: Performed By: #### L 100.0100, L500.2500 ####[facility] [address] [place], [address] Absolute Neut 5.0 X10 3/uL Normal 2.0-7.7 [facility] Comment on above: Performed By: #### L 100.0100, L500.2500 ####[facility] [address] [place], [address] Basophils/100 WBC (Bld) 0.2 % Normal 0-1 [facility] Comment on above: Performed By: #### L 100.0100, L500.2500 ####[facility] [address] [place], [address] Eosinophils/100 WBC (Bld) 3.0 % Normal 0-5 [facility] Comment on above: Performed By: #### L 100.0100, L500.2500 ####[facility] [address] [place], [address] Erythrocyte distribution width (RBC) [Ratio] 13.1 % Normal 11.6-14.6 [facility] Comment on above: Performed By: #### L 100.0100, L500.2500 ####[facility] [address] [place], [address] Hematocrit (Bld) [Volume fraction] 38.2 % Normal 37-47 [facility] Comment on above: Performed By: #### L 100.0100, L500.2500 ####[facility] [address] [place], [address] Hemoglobin (Bld) [Mass/Vol] 11.9 g/dL Low 12.0-15.0 [facility] Comment on above: Performed By: #### L 100.0100, L500.2500 ####[facility] [address] [place], [address] IG% 0.400 Normal 0.0-0.9 [facility] Comment on above: Result Comment: IG% - Immature Granulocytes (promyelocytes, myelocytes andmetamyelocytes) > 1% indicates that a LEFT SHIFT is Present. Performed By: #### L 100.0100, L500.2500 ####[facility] [address] [place], [address] Lymphocytes/100 WBC (Bld) 28.4 % Normal 19-41 [facility] Comment on above: Performed By: #### L 100.0100, L500.2500 ####[facility] [address] [place], [address] MCH (RBC) [Entitic mass] 29.0 pg Normal 27.0-32.0 [facility] Comment on above: Performed By: #### L 100.0100, L500.2500 ####[facility] [address] [place], [address] MCHC (RBC) [Mass/Vol] 31.2 g/dL Low 32-36 [facility] Comment on above: Performed By: #### L 100.0100, L500.2500 ####[facility] [address] [place], [address] MCV (RBC) [Entitic vol] 92.9 fL Normal 81-99 [facility] Comment on above: Performed By: #### L 100.0100, L500.2500 ####[facility] [address] [place], [address] Monocytes/100 WBC (Bld) 7.3 % Normal 0-10 [facility] Comment on above: Performed By: #### L 100.0100, L500.2500 ####[facility] [address] [place], [address] Neutrophils/100 WBC (Bld) 60.7 % Normal 47-70 [facility] Comment on above: Performed By: #### L 100.0100, L500.2500 ####[facility] [address] [place], [address] Nucleated RBC (Bld) [#/Vol] 0 10*3/uL Normal 0-5 [facility] Comment on above: Performed By: #### L 100.0100, L500.2500 ####[facility] [address] [place], [address] Platelet mean volume (Bld) [Entitic vol] 10.0 fL Normal 6.2-12.0 [facility] Comment on above: Performed By: #### L 100.0100, L500.2500 ####[facility] [address] [place], [address] Platelets (Bld) [#/Vol] 239 10*3/uL Normal 150-450 [facility] Comment on above: Performed By: #### L 100.0100, L500.2500 ####[facility] [address] [place], [address] RBC (Bld) [#/Vol] 4.11 10*6/uL Low 4.2-5.4 [facility] Comment on above: Performed By: #### L 100.0100, L500.2500 ####[facility] [address] [place], [address] RDW SD 43.8 fl Normal 35.1-43.9 [facility] Comment on above: Performed By: #### L 100.0100, L500.2500 ####[facility] [address] [place], [address] WBC (Bld) [#/Vol] 8.3 10*3/uL Normal 4.4-11.0 [facility] Comment on above: Performed By: #### L 100.0100, L500.2500 ####[facility] [address] [place], [address] Comprehensive Metabolic Prof ilon 01-04-2024 Albumin [Mass/Vol] 3.2 g/dL Normal 3.2-5.0 [facility] Comment on above: Performed By: #### L 500.4050 ####[facility] [address] [place], [address] Albumin/Globulin [Mass ratio] 1.0 {ratio} Normal 0.9-2.4 [facility] Comment on above: Performed By: #### L 500.4050 ####[facility] [address] [place], [address] ALK P 64 U/L Normal 45-117 [facility] Comment on above: Performed By: #### L 500.4050 ####[facility] [address] [place], [address] ALT [Catalytic activity/Vol] 20 U/L Normal 13-56 [facility] Comment on above: Performed By: #### L 500.4050 ####[facility] [address] [place], [address] AST [Catalytic activity/Vol] 16 U/L Normal 15-37 [facility] Comment on above: Performed By: #### L 500.4050 ####[facility] [address] [place], [address] Bilirubin [Mass/Vol] 0.50 mg/dL Normal 0.20-1.00 [facility] Comment on above: Result Comment: For patients on eltrombopag therapy, use of Dimension Jackson TBIL is not recommended. Performed By: #### L 500.4050 ####[facility] [address] [place], [address] BUN/CRE 21.2 RATIO High 10-20 [facility] Comment on above: Performed By: #### L 500.4050 ####[facility] [address] [place], [address] CA,Total 8.7 mg/dL Normal 8.5-10.1 [facility] Comment on above: Performed By: #### L 500.4050 ####[facility] [address] [place], [address] Chloride [Moles/Vol] 110 mmol/L High 98-107 [facility] Comment on above: Performed By: #### L 500.4050 ####[facility] [address] [place], [address] CO2 [Moles/Vol] 25.0 mmol/L Normal 21.0-32.0 [facility] Comment on above: Performed By: #### L 500.4050 ####[facility] [address] [place], [address] Creatinine [Mass/Vol] 0.80 mg/dL Normal 0.55-1.02 [facility] Comment on above: Result Comment: The validity of the calculated GFR GFRAA in patients over70 years has not been determined. Clinical correlation isessential. Performed By: #### L 500.4050 ####[facility] [address] [place], [address] ECRCL 65.41 ml/min Normal [facility] Comment on above: Performed By: #### L 500.4050 ####[facility] [address] [place], [address] EST GFR - AA 91 mL/min Normal >60 [facility] Comment on above: Result Comment: Afri can [place] GFR Calc Performed By: #### L 500.4050 ####[facility] [address] [place], [address] GAP 6 Normal 5-15 [facility] Comment on above: Performed By: #### L 500.4050 ####[facility] [address] [place], [address] GFR/1.73 sq M.predicted among non-blacks MDRD (S/P/Bld) [Vol rate/Area] 75 mL/min/{1.73_m2} Normal >60 [facility] Comment on above: Result Comment: Non- GFR Calc Performed By: #### L 500.4050 ####[facility] [address] [place], [address] Globulin (S) [Mass/Vol] 3.1 g/dL Normal 2.2-4.2 [facility] Comment on above: Performed By: #### L 500.4050 ####[facility] [address] [place], [address] Glucose [Mass/Vol] 206 mg/dL High 74-106 [facility] Comment on above: Result Comment: Gluc ose result greater than or equal to 200 mg/dLsuggests DIABETES MELLITUS per A.D.A. criteria. Performed By: #### L 500.4050 ####[facility] [address] [place], [address] Potassium [Moles/Vol] 3.6 mmol/L Normal 3.5-5.1 [facility] Comment on above: Performed By: #### L 500.4050 ####[facility] [address] [place], [address] Sodium [Moles/Vol] 140 mmol/L Normal 136-145 [facility] Comment on above: Performed By: #### L 500.4050 ####[facility] [address] [place], [address] T PROT 6.3 g/dL Low 6.4-8.2 [facility] Comment on above: Performed By: #### L 500.4050 ####[facility] [address] [place], [address] Urea nitrogen [Mass/Vol] 17 mg/dL Normal 7-18 [facility] Comment on above: Performed By: #### L 500.4050 ####[facility] [address] [place], [address] EGD Reporton 01-04-2024 EGD Report Normal [facility] H Pylori (initial)on 024 H Pylori (initial) Normal [facility] Comment on above: Performed By: #### P H.PYLORI ####[facility] [address] [place], [address] MR/POSTOP.ANEon 01-04-2024 MR/POSTOP.ANE Normal [facility] MR/[id number] 01-04-2024 MR/POSTOPAN2 Normal [facility] Surgery Specimen Level Aristides 01-04-2024 Surgery Specimen Level IV Normal [facility] Comment on above: Performed By: #### P SUIV ####[facility] [address] [place], [address] Type AND Screenon 01-04-2024 Ab SCREEN GEL Negative Normal [facility] Comment on above: Order Comment: RE-DR CARUSO Performed By: #### B TS ####[facility] [address] [place], [address] ABO and Rh group Nom (Bld) Blood group O Rh(D) positive Normal [facility] Comment on above: Order Comment: RE-DR CARUSO Performed By: #### B TS ####[facility] [address] [place], [address] Basic Metabolic Profile (BMP )on 01-03-2024 BUN/CRE 25.8 RATIO High 10-20 [facility] Comment on above: Performed By: #### L 100.0100, L500.2500 ####[facility] [address] [place], [address] CA,Total 8.5 mg/dL Normal 8.5-10.1 [facility] Comment on above: Performed By: #### L 100.0100, L500.2500 ####[facility] [address] [place], [address] Chloride [Moles/Vol] 109 mmol/L High 98-107 [facility] Comment on above: Performed By: #### L 100.0100, L500.2500 ####[facility] [address] [place], [address] CO2 [Moles/Vol] 25.0 mmol/L Normal 21.0-32.0 [facility] Comment on above: Performed By: #### L 100.0100, L500.2500 ####[facility] [address] [place], [address] Creatinine [Mass/Vol] 0.85 mg/dL Normal 0.55-1.02 [facility] Comment on above: Result Comment: The validity of the calculated GFR GFRAA in patients over70 years has not been determined. Clinical correlation isessential. Performed By: #### L 100.0100, L500.2500 ####[facility] [address] [place], [address] ECRCL 46.47 ml/min Normal [facility] Comment on above: Performed By: #### L 100.0100, L500.2500 ####[facility] [address] [place], [address] EST GFR - AA 85 mL/min Normal >60 [facility] Comment on above: Result Comment: Afri can [place] GFR Calc Performed By: #### L 100.0100, L500.2500 ####[facility] [address] [place], [address] GAP 7 Normal 5-15 [facility] Comment on above: Performed By: #### L 100.0100, L500.2500 ####[facility] [address] [place], [address] GFR/1.73 sq M.predicted among non-blacks MDRD (S/P/Bld) [Vol rate/Area] 70 mL/min/{1.73_m2} Normal >60 [facility] Comment on above: Result Comment: Non- GFR Calc Performed By: #### L 100.0100, L500.2500 ####[facility] [address] [place], [address] Glucose [Mass/Vol] 243 mg/dL High 74-106 [facility] Comment on above: Result Comment: Gluc ose result greater than or equal to 200 mg/dLsuggests DIABETES MELLITUS per A.D.A. criteria. Performed By: #### L 100.0100, L500.2500 ####[facility] [address] [place], [address] Potassium [Moles/Vol] 3.2 mmol/L Low 3.5-5.1 [facility] Comment on above: Performed By: #### L 100.0100, L500.2500 ####[facility] [address] [place], [address] Sodium [Moles/Vol] 141 mmol/L Normal 136-145 [facility] Comment on above: Performed By: #### L 100.0100, L500.2500 ####[facility] [address] [place], [address] Urea nitrogen [Mass/Vol] 22 mg/dL High 7-18 [facility] Comment on above: Performed By: #### L 100.0100, L500.2500 ####[facility] [address] [place], [address] Bedside Glucoseon 01-03-2024 FINGERSTICK GLU 179 mg/dL High 74-106 [facility] Comment on above: Result Comment: GERALDO BEGUM OF PATIENT CARE PER NURSING PROTOCOL Performed By: #### L 501.080 ####[facility] [address] [place], [address] FINGERSTICK GLU 263 mg/dL High 74-106 [facility] Comment on above: Result Comment: GERALDO GEMENT OF PATIENT CARE PER NURSING PROTOCOL Performed By: #### L 501.080 ####[facility] [address] [place], [address] FINGERSTICK GLU 200 mg/dL High 74-106 [facility] Comment on above: Result Comment: GERALDO GEMENT OF PATIENT CARE PER NURSING PROTOCOL Performed By: #### L 501.080 ####[facility] [address] [place], [address] CBC W/Diff, Automatedon 11- Absolute Lymph 2.06 X10 3/uL Normal 0.83-4.51 [facility] Comment on above: Performed By: #### L 100.0100, L500.2500 ####[facility] [address] [place], [address] Absolute Neut 5.7 X10 3/uL Normal 2.0-7.7 [facility] Comment on above: Performed By: #### L 100.0100, L500.2500 ####[facility] [address] [place], [address] Basophils/100 WBC (Bld) 0.1 % Normal 0-1 [facility] Comment on above: Performed By: #### L 100.0100, L500.2500 ####[facility] [address] [place], [address] Eosinophils/100 WBC (Bld) 2.1 % Normal 0-5 [facility] Comment on above: Performed By: #### L 100.0100, L500.2500 ####[facility] [address] [place], [address] Erythrocyte distribution width (RBC) [Ratio] 12.9 % Normal 11.6-14.6 [facility] Comment on above: Performed By: #### L 100.0100, L500.2500 ####[facility] [address] [place], [address] Hematocrit (Bld) [Volume fraction] 35.5 % Low 37-47 [facility] Comment on above: Performed By: #### L 100.0100, L500.2500 ####[facility] [address] [place], [address] Hemoglobin (Bld) [Mass/Vol] 11.0 g/dL Low 12.0-15.0 [facility] Comment on above: Performed By: #### L 100.0100, L500.2500 ####[facility] [address] [place], [address] IG% 0.400 Normal 0.0-0.9 [facility] Comment on above: Result Comment: IG% - Immature Granulocytes (promyelocytes, myelocytes andmetamyelocytes) > 1% indicates that a LEFT SHIFT is Present. Performed By: #### L 100.0100, L500.2500 ####[facility] [address] [place], [address] Lymphocytes/100 WBC (Bld) 24.1 % Normal 19-41 [facility] Comment on above: Performed By: #### L 100.0100, L500.2500 ####[facility] [address] [place], [address] MCH (RBC) [Entitic mass] 28.9 pg Normal 27.0-32.0 [facility] Comment on above: Performed By: #### L 100.0100, L500.2500 ####[facility] [address] [place], [address] MCHC (RBC) [Mass/Vol] 31.0 g/dL Low 32-36 [facility] Comment on above: Performed By: #### L 100.0100, L500.2500 ####[facility] [address] [place], [address] MCV (RBC) [Entitic vol] 93.4 fL Normal 81-99 [facility] Comment on above: Performed By: #### L 100.0100, L500.2500 ####[facility] [address] [place], [address] Monocytes/100 WBC (Bld) 6.7 % Normal 0-10 [facility] Comment on above: Performed By: #### L 100.0100, L500.2500 ####[facility] [address] [place], [address] Neutrophils/100 WBC (Bld) 66.6 % Normal 47-70 [facility] Comment on above: Performed By: #### L 100.0100, L500.2500 ####[facility] [address] [place], [address] Nucleated RBC (Bld) [#/Vol] 0 10*3/uL Normal 0-5 [facility] Comment on above: Performed By: #### L 100.0100, L500.2500 ####[facility] [address] [place], [address] Platelet mean volume (Bld) [Entitic vol] 9.9 fL Normal 6.2-12.0 [facility] Comment on above: Performed By: #### L 100.0100, L500.2500 ####[facility] [address] [place], [address] Platelets (Bld) [#/Vol] 221 10*3/uL Normal 150-450 [facility] Comment on above: Performed By: #### L 100.0100, L500.2500 ####[facility] [address] [place], [address] RBC (Bld) [#/Vol] 3.80 10*6/uL Low 4.2-5.4 [facility] Comment on above: Performed By: #### L 100.0100, L500.2500 ####[facility] [address] [place], [address] RDW SD 44.0 fl High 35.1-43.9 [facility] Comment on above: Performed By: #### L 100.0100, L500.2500 ####[facility] [address] [place], [address] WBC (Bld) [#/Vol] 8.6 10*3/uL Normal 4.4-11.0 [facility] Comment on above: Performed By: #### L 100.0100, L500.2500 ####[facility] [address] [place], [address] Lipaseon 01-03-2024 Lipase [Catalytic activity/Vol] 30 U/L Normal - [facility] Comment on above: Order Comment: Comme nts: Add onto previous labs if possible Result Comment: La aguilar note:LIPASE revised reference range effective 22.New Lipase methodology. Expected to produce lower valuesthan the previous assay method.NEW Reference Range: 13 - 75 U/L Performed By: #### L 501.2450 ####[facility] [address] [place], [address] Lipase measurementOrdered By : Zahra Palacio on 01-03-2024 Lipase measurement 30 U/L 13-75 [facility] Basic Metabolic Profile (BMP )on 01-02-2024 BUN/CRE 30.7 RATIO High - [facility] Comment on above: Performed By: #### L 500.2500, L100.0100 ####[facility] [address] [place], [address] CA,Total 9.0 mg/dL Normal 8.5-10.1 [facility] Comment on above: Performed By: #### L 500.2500, L100.0100 ####[facility] [address] [place], [address] Chloride [Moles/Vol] 111 mmol/L High 98-107 [facility] Comment on above: Performed By: #### L 500.2500, L100.0100 ####[facility] [address] [place], [address] CO2 [Moles/Vol] 25.0 mmol/L Normal 21.0-32.0 [facility] Comment on above: Performed By: #### L 500.2500, L100.0100 ####[facility] [address] [place], [address] Creatinine [Mass/Vol] 1.01 mg/dL Normal 0.55-1.02 [facility] Comment on above: Result Comment: The validity of the calculated GFR GFRAA in patients over70 years has not been determined. Clinical correlation isessential. Performed By: #### L 500.2500, L100.0100 ####[facility] [address] [place], [address] ECRCL 39.19 ml/min Normal [facility] Comment on above: Performed By: #### L 500.2500, L100.0100 ####[facility] [address] [place], [address] EST GFR - AA 70 mL/min Normal >60 [facility] Comment on above: Result Comment: Afri can [place] GFR Calc Performed By: #### L 500.2500, L100.0100 ####[facility] [address] [place], [address] GAP 6 Normal 5-15 [facility] Comment on above: Performed By: #### L 500.2500, L100.0100 ####[facility] [address] [place], [address] GFR/1.73 sq M.predicted among non-blacks MDRD (S/P/Bld) [Vol rate/Area] 58 mL/min/{1.73_m2} Low >60 [facility] Comment on above: Result Comment: Non- GFR Calc Performed By: #### L 500.2500, L100.0100 ####[facility] [address] [place], [address] Glucose [Mass/Vol] 181 mg/dL High 74-106 [facility] Comment on above: Result Comment: Fast ing Glucose result greater than or equal to 126 mg/dLsuggests DIABETES MELLITUS per A.D.A. criteria. Performed By: #### L 500.2500, L100.0100 ####[facility] [address] [place], [address] Potassium [Moles/Vol] 4.6 mmol/L Normal 3.5-5.1 [facility] Comment on above: Performed By: #### L 500.2500, L100.0100 ####[facility] [address] [place], [address] Sodium [Moles/Vol] 142 mmol/L Normal 136-145 [facility] Comment on above: Performed By: #### L 500.2500, L100.0100 ####[facility] [address] [place], [address] Urea nitrogen [Mass/Vol] 31 mg/dL High 7-18 [facility] Comment on above: Performed By: #### L 500.2500, L100.0100 ####[facility] [address] [place], [address] Bedside Glucoseon 01-02-2024 FINGERSTICK GLU 236 mg/dL High 74-106 [facility] Comment on above: Result Comment: GERALDO BEGUM OF PATIENT CARE PER NURSING PROTOCOL Performed By: #### L 501.080 ####[facility] [address] [place], [address] FINGERSTICK GLU 177 mg/dL High 74-106 [facility] Comment on above: Result Comment: GERALDO GEMENT OF PATIENT CARE PER NURSING PROTOCOL Performed By: #### L 501.080 ####[facility] [address] [place], [address] FINGERSTICK GLU 166 mg/dL High 74-106 [facility] Comment on above: Result Comment: GERALDO GEMENT OF PATIENT CARE PER NURSING PROTOCOL Performed By: #### L 501.080 ####[facility] [address] [place], [address] FINGERSTICK GLU 225 mg/dL High 74-106 [facility] Comment on above: Result Comment: GERALDO GEMENT OF PATIENT CARE PER NURSING PROTOCOL Performed By: #### L 501.080 ####[facility] [address] [place], [address] CBC W/Diff, Automatedon 12-14 PATH REV Reviewed Normal [facility] Comment on above: Result Comment: ADDIE MESA MD 01/02/2024 AMENDED REPORT 01/02/2431 PATH REV previously reported as: June Performed By: #### L 500.4050, L100.0100, L501.9985, L501.9520, L500.4100 ####[facility] [address] [place], [address] Absolute Lymph 2.31 X10 3/uL Normal 0.83-4.51 [facility] Comment on above: Performed By: #### L 500.2500, L100.0100 ####[facility] [address] [place], [address] Absolute Neut 8.4 X10 3/uL High 2.0-7.7 [facility] Comment on above: Performed By: #### L 500.2500, L100.0100 ####[facility] [address] [place], [address] Basophils/100 WBC (Bld) 0.1 % Normal 0-1 [facility] Comment on above: Performed By: #### L 500.2500, L100.0100 ####[facility] [address] [place], [address] Eosinophils/100 WBC (Bld) 1.0 % Normal 0-5 [facility] Comment on above: Performed By: #### L 500.2500, L100.0100 ####[facility] [address] [place], [address] Erythrocyte distribution width (RBC) [Ratio] 13.2 % Normal 11.6-14.6 [facility] Comment on above: Performed By: #### L 500.2500, L100.0100 ####[facility] [address] [place], [address] Hematocrit (Bld) [Volume fraction] 39.7 % Normal 37-47 [facility] Comment on above: Performed By: #### L 500.2500, L100.0100 ####[facility] [address] [place], [address] Hemoglobin (Bld) [Mass/Vol] 12.2 g/dL Normal 12.0-15.0 [facility] Comment on above: Performed By: #### L 500.2500, L100.0100 ####[facility] [address] [place], [address] IG% 0.400 Normal 0.0-0.9 [facility] Comment on above: Result Comment: IG% - Immature Granulocytes (promyelocytes, myelocytes andmetamyelocytes) > 1% indicates that a LEFT SHIFT is Present. Performed By: #### L 500.2500, L100.0100 ####[facility] [address] [place], [address] Lymphocytes/100 WBC (Bld) 19.3 % Normal 19-41 [facility] Comment on above: Performed By: #### L 500.2500, L100.0100 ####[facility] [address] [place], [address] MCH (RBC) [Entitic mass] 29.4 pg Normal 27.0-32.0 [facility] Comment on above: Performed By: #### L 500.2500, L100.0100 ####[facility] [address] [place], [address] MCHC (RBC) [Mass/Vol] 30.7 g/dL Low 32-36 [facility] Comment on above: Performed By: #### L 500.2500, L100.0100 ####[facility] [address] [place], [address] MCV (RBC) [Entitic vol] 95.7 fL Normal 81-99 [facility] Comment on above: Performed By: #### L 500.2500, L100.0100 ####[facility] [address] [place], [address] Monocytes/100 WBC (Bld) 8.5 % Normal 0-10 [facility] Comment on above: Performed By: #### L 500.2500, L100.0100 ####[facility] [address] [place], [address] Neutrophils/100 WBC (Bld) 70.7 % High 47-70 [facility] Comment on above: Performed By: #### L 500.2500, L100.0100 ####[facility] [address] [place], [address] Nucleated RBC (Bld) [#/Vol] 0 10*3/uL Normal 0-5 [facility] Comment on above: Performed By: #### L 500.2500, L100.0100 ####[facility] [address] [place], [address] Platelet mean volume (Bld) [Entitic vol] 9.6 fL Normal 6.2-12.0 [facility] Comment on above: Performed By: #### L 500.2500, L100.0100 ####[facility] [address] [place], [address] Platelets (Bld) [#/Vol] 193 10*3/uL Normal 150-450 [facility] Comment on above: Performed By: #### L 500.2500, L100.0100 ####[facility] [address] [place], [address] RBC (Bld) [#/Vol] 4.15 10*6/uL Low 4.2-5.4 [facility] Comment on above: Performed By: #### L 500.2500, L100.0100 ####[facility] [address] [place], [address] RDW SD 46.1 fl High 35.1-43.9 [facility] Comment on above: Performed By: #### L 500.2500, L100.0100 ####[facility] [address] [place], [address] WBC (Bld) [#/Vol] 11.9 10*3/uL High 4.4-11.0 [facility] Comment on above: Performed By: #### L 500.2500, L100.0100 ####[facility] [address] [place], [address] CDIFF (PCR)on 01-02-2024 CDIFF Normal [facility] Comment on above: Performed By: #### M 100.5796, M100.3601 ####[facility] [address] [place], [address] Clostridium Diff Toxin/Agon 01-02-2024 CDIFF (EIA) Normal [facility] Comment on above: Performed By: #### M 100.9796, M100.6795 ####[facility] [address] [place], [address] ENTERIC PATHOGEN PANEL STOOL on 01-02-2024 EP PANEL CAMPYLOBACTER Not Detected Norovirus Not Detected Rotavirus Not Detected Salmonella Not Detected Shiga Toxin Not Detected Shigella sp. Not Detected VIBRIO Not Detected Yersinia Not Detected Normal [facility] Comment on above: Performed By: #### M 100.637 ####[facility] [address] [place], [address] Basic Metabolic Profile (BMP )on 01-01-2024 BUN/CRE 30.3 RATIO High 10-20 [facility] Comment on above: Performed By: #### L 500.2500, L100.0100 ####[facility] [address] [place], [address] CA,Total 8.9 mg/dL Normal 8.5-10.1 [facility] Comment on above: Performed By: #### L 500.2500, L100.0100 ####[facility] [address] [place], [address] Chloride [Moles/Vol] 112 mmol/L High 98-107 [facility] Comment on above: Performed By: #### L 500.2500, L100.0100 ####[facility] [address] [place], [address] CO2 [Moles/Vol] 25.0 mmol/L Normal 21.0-32.0 [facility] Comment on above: Performed By: #### L 500.2500, L100.0100 ####[facility] [address] [place], [address] Creatinine [Mass/Vol] 1.32 mg/dL High 0.55-1.02 [facility] Comment on above: Result Comment: The validity of the calculated GFR GFRAA in patients over70 years has not been determined. Clinical correlation isessential. Performed By: #### L 500.2500, L100.0100 ####[facility] [address] [place], [address] ECRCL 29.80 ml/min Normal [facility] Comment on above: Performed By: #### L 500.2500, L100.0100 ####[facility] [address] [place], [address] EST GFR - AA 51 mL/min Low >60 [facility] Comment on above: Result Comment: Afri can [place] GFR Calc Performed By: #### L 500.2500, L100.0100 ####[facility] [address] [place], [address] GAP 4 Low 5-15 [facility] Comment on above: Performed By: #### L 500.2500, L100.0100 ####[facility] [address] [place], [address] GFR/1.73 sq M.predicted among non-blacks MDRD (S/P/Bld) [Vol rate/Area] 42 mL/min/{1.73_m2} Low >60 [facility] Comment on above: Result Comment: Non- GFR Calc Performed By: #### L 500.2500, L100.0100 ####[facility] [address] [place], [address] Glucose [Mass/Vol] 227 mg/dL High 74-106 [facility] Comment on above: Result Comment: Gluc ose result greater than or equal to 200 mg/dLsuggests DIABETES MELLITUS per A.D.A. criteria. Performed By: #### L 500.2500, L100.0100 ####[facility] [address] [place], [address] Potassium [Moles/Vol] 4.3 mmol/L Normal 3.5-5.1 [facility] Comment on above: Performed By: #### L 500.2500, L100.0100 ####[facility] [address] [place], [address] Sodium [Moles/Vol] 141 mmol/L Normal 136-145 [facility] Comment on above: Performed By: #### L 500.2500, L100.0100 ####[facility] [address] [place], [address] Urea nitrogen [Mass/Vol] 40 mg/dL High 7-18 [facility] Comment on above: Performed By: #### L 500.2500, L100.0100 ####[facility] [address] [place], [address] Bedside Glucoseon 01-01-2024 FINGERSTICK GLU 187 mg/dL High 74-106 [facility] Comment on above: Result Comment: GERALDO GEMENT OF PATIENT CARE PER NURSING PROTOCOL Performed By: #### L 501.080 ####[facility] [address] [place], [address] FINGERSTICK GLU 186 mg/dL High 74-106 [facility] Comment on above: Result Comment: GERALDO GEMENT OF PATIENT CARE PER NURSING PROTOCOL Performed By: #### L 501.080 ####[facility] [address] [place], [address] FINGERSTICK GLU 213 mg/dL High 74-106 [facility] Comment on above: Result Comment: GERALDO GEMENT OF PATIENT CARE PER NURSING PROTOCOL Performed By: #### L 501.080 ####[facility] [address] [place], [address] CBC W/Diff, Automatedon - Absolute Lymph 1.65 X10 3/uL Normal 0.83-4.51 [facility] Comment on above: Performed By: #### L 500.2500, L100.0100 ####[facility] [address] [place], [address] Absolute Neut 14.5 X10 3/uL High 2.0-7.7 [facility] Comment on above: Performed By: #### L 500.2500, L100.0100 ####[facility] [address] [place], [address] Basophils/100 WBC (Bld) 0.1 % Normal 0-1 [facility] Comment on above: Performed By: #### L 500.2500, L100.0100 ####[facility] [address] [place], [address] Eosinophils/100 WBC (Bld) 0.3 % Normal 0-5 [facility] Comment on above: Performed By: #### L 500.2500, L100.0100 ####[facility] [address] [place], [address] Erythrocyte distribution width (RBC) [Ratio] 13.3 % Normal 11.6-14.6 [facility] Comment on above: Performed By: #### L 500.2500, L100.0100 ####[facility] [address] [place], [address] Hematocrit (Bld) [Volume fraction] 42.1 % Normal 37-47 [facility] Comment on above: Performed By: #### L 500.2500, L100.0100 ####[facility] [address] [place], [address] Hemoglobin (Bld) [Mass/Vol] 13.2 g/dL Normal 12.0-15.0 [facility] Comment on above: Performed By: #### L 500.2500, L100.0100 ####[facility] [address] [place], [address] IG% 0.500 Normal 0.0-0.9 [facility] Comment on above: Result Comment: IG% - Immature Granulocytes (promyelocytes, myelocytes andmetamyelocytes) > 1% indicates that a LEFT SHIFT is Present. Performed By: #### L 500.2500, L100.0100 ####[facility] [address] [place], [address] Lymphocytes/100 WBC (Bld) 9.6 % Low 19-41 [facility] Comment on above: Performed By: #### L 500.2500, L100.0100 ####[facility] [address] [place], [address] MCH (RBC) [Entitic mass] 29.1 pg Normal 27.0-32.0 [facility] Comment on above: Performed By: #### L 500.2500, L100.0100 ####[facility] [address] [place], [address] MCHC (RBC) [Mass/Vol] 31.4 g/dL Low 32-36 [facility] Comment on above: Performed By: #### L 500.2500, L100.0100 ####[facility] [address] [place], [address] MCV (RBC) [Entitic vol] 92.9 fL Normal 81-99 [facility] Comment on above: Performed By: #### L 500.2500, L100.0100 ####[facility] [address] [place], [address] Monocytes/100 WBC (Bld) 5.6 % Normal 0-10 [facility] Comment on above: Performed By: #### L 500.2500, L100.0100 ####[facility] [address] [place], [address] Neutrophils/100 WBC (Bld) 83.9 % High 47-70 [facility] Comment on above: Performed By: #### L 500.2500, L100.0100 ####[facility] [address] [place], [address] Nucleated RBC (Bld) [#/Vol] 0 10*3/uL Normal 0-5 [facility] Comment on above: Performed By: #### L 500.2500, L100.0100 ####[facility] [address] [place], [address] Platelet mean volume (Bld) [Entitic vol] 9.6 fL Normal 6.2-12.0 [facility] Comment on above: Performed By: #### L 500.2500, L100.0100 ####[facility] [id number] [place], [address] Platelets (Bld) [#/Vol] 292 10*3/uL Normal 150-450 [facility] Comment on above: Performed By: #### L 500.2500, L100.0100 ####[facility] [id number] [place], [address] RBC (Bld) [#/Vol] 4.53 10*6/uL Normal 4.2-5.4 [facility] Comment on above: Performed By: #### L 500.2500, L100.0100 ####[facility] [address] [place], [address] RDW SD 45.4 fl High 35.1-43.9 [facility] Comment on above: Performed By: #### L 500.2500, L100.0100 ####[facility] [address] [place], [address] WBC (Bld) [#/Vol] 17.3 10*3/uL High 4.4-11.0 [facility] Comment on above: Performed By: #### L 500.2500, L100.0100 ####[facility] [address] [place], [address] Urine Cultureon 01-01-2024 URC Normal [facility] Comment on above: Performed By: #### M 100.2200, M100.678 ####[facility] [address] [place], [address] Bedside Glucoseon 12-31-2023 FINGERSTICK GLU 205 mg/dL High -106 [facility] Comment on above: Result Comment: GERALDO GEMENT OF PATIENT CARE PER NURSING PROTOCOL Performed By: #### L 501.080 ####[facility] [address] [place], [address] FINGERSTICK GLU 191 mg/dL High [address] [place] [address] Comment on above: Result Comment: GERALDO GEMENT OF PATIENT CARE PER NURSING PROTOCOL Performed By: #### L 501.080 ####[facility] [address] [place], [address] FINGERSTICK GLU 244 mg/dL High [address] [place] [address] Comment on above: Result Comment: GERALDO GEMENT OF PATIENT CARE PER NURSING PROTOCOL Performed By: #### L 501.080 ####[facility] [address] [place], [address] FINGERSTICK GLU 264 mg/dL High [address] [place] [address] Comment on above: Result Comment: GERLADO GEMENT OF PATIENT CARE PER NURSING PROTOCOL Performed By: #### L 501.080 ####[facility] [address] [place], [address] FINGERSTICK GLU 300 mg/dL High [address] [place] [address] Comment on above: Result Comment: GERALDO GEMENT OF PATIENT CARE PER NURSING PROTOCOL Performed By: #### L 501.080 ####[facility] [address] [place], [address] Chest 1 View (Portable)on Chest 1 View (Portable) Normal [facility] Cholesterol [Mass/Vol]Ordere d By: Kanwal White on 12-31-2023 Serum or plasma cholesterol measurement (mass/volume) 161 mg/dL <200 [facility] Comprehensive Metabolic Prof ilon 12-31-2023 Albumin [Mass/Vol] 3.1 g/dL Low 3.2-5.0 [facility] Comment on above: Performed By: #### L 500.4050, L100.0100, L501.9985, L501.9520, L500.4100 ####[facility] [address] [place], [address] Albumin/Globulin [Mass ratio] 0.9 {ratio} Normal 0.9-2.4 [facility] Comment on above: Performed By: #### L 500.4050, L100.0100, L501.9985, L501.9520, L500.4100 ####[facility] [address] [place], [address] ALK P 73 U/L Normal 45-117 [facility] Comment on above: Performed By: #### L 500.4050, L100.0100, L501.9985, L501.9520, L500.4100 ####[facility] [address] [place], [address] ALT [Catalytic activity/Vol] 31 U/L Normal 13-56 [facility] Comment on above: Performed By: #### L 500.4050, L100.0100, L501.9985, L501.9520, L500.4100 ####[facility] [address] [place], [address] AST [Catalytic activity/Vol] 29 U/L Normal 15-37 [facility] Comment on above: Performed By: #### L 500.4050, L100.0100, L501.9985, L501.9520, L500.4100 ####[facility] [address] [place], [address] Bilirubin [Mass/Vol] 0.40 mg/dL Normal 0.20-1.00 [facility] Comment on above: Result Comment: For patients on eltrombopag therapy, use of Dimension Jackson TBIL is not recommended. Performed By: #### L 500.4050, L100.0100, L501.9985, L501.9520, L500.4100 ####[facility] [address] [place], [address] BUN/CRE 22.3 RATIO High 10-20 [facility] Comment on above: Performed By: #### L 500.4050, L100.0100, L501.9985, L501.9520, L500.4100 ####[facility] [address] [place], [address] CA,Total 7.9 mg/dL Low 8.5-10.1 [facility] Comment on above: Performed By: #### L 500.4050, L100.0100, L501.9985, L501.9520, L500.4100 ####[facility] [address] [place], [address] Chloride [Moles/Vol] 113 mmol/L High 98-107 [facility] Comment on above: Performed By: #### L 500.4050, L100.0100, L501.9985, L501.9520, L500.4100 ####[facility] [address] [place], [address] CO2 [Moles/Vol] 20.0 mmol/L Low 21.0-32.0 [facility] Comment on above: Performed By: #### L 500.4050, L100.0100, L501.9985, L501.9520, L500.4100 ####[facility] [address] [place], [address] Creatinine [Mass/Vol] 1.66 mg/dL High 0.55-1.02 [facility] Comment on above: Result Comment: The validity of the calculated GFR GFRAA in patients over70 years has not been determined. Clinical correlation isessential. Performed By: #### L 500.4050, L100.0100, L501.9985, L501.9520, L500.4100 ####[facility] [address] [place], [address] ECRCL 23.05 ml/min Normal [facility] Comment on above: Performed By: #### L 500.4050, L100.0100, L501.9985, L501.9520, L500.4100 ####[facility] [address] [place], [address] EST GFR - AA 39 mL/min Low >60 [facility] Comment on above: Result Comment: Afri can [place] GFR Calc Performed By: #### L 500.4050, L100.0100, L501.9985, L501.9520, L500.4100 ####[facility] [address] [place], [address] GAP 8 Normal 5-15 [facility] Comment on above: Performed By: #### L 500.4050, L100.0100, L501.9985, L501.9520, L500.4100 ####[facility] [address] [place], [address] GFR/1.73 sq M.predicted among non-blacks MDRD (S/P/Bld) [Vol rate/Area] 32 mL/min/{1.73_m2} Low >60 [facility] Comment on above: Result Comment: Non- GFR Calc Performed By: #### L 500.4050, L100.0100, L501.9985, L501.9520, L500.4100 ####[facility] [address] [place], [address] Globulin (S) [Mass/Vol] 3.6 g/dL Normal 2.2-4.2 [facility] Comment on above: Performed By: #### L 500.4050, L100.0100, L501.9985, L501.9520, L500.4100 ####[facility] [address] [place], [address] Glucose [Mass/Vol] 305 mg/dL High 74-106 [facility] Comment on above: Result Comment: Gluc ose result greater than or equal to 200 mg/dLsuggests DIABETES MELLITUS per A.D.A. criteria. Performed By: #### L 500.4050, L100.0100, L501.9985, L501.9520, L500.4100 ####[facility] [address] [place], [address] Potassium [Moles/Vol] 4.0 mmol/L Normal 3.5-5.1 [facility] Comment on above: Performed By: #### L 500.4050, L100.0100, L501.9985, L501.9520, L500.4100 ####[facility] [address] [place], [address] Sodium [Moles/Vol] 140 mmol/L Normal 136-145 [facility] Comment on above: Performed By: #### L 500.4050, L100.0100, L501.9985, L501.9520, L500.4100 ####[facility] [address] [place], [address] T PROT 6.7 g/dL Normal 6.4-8.2 [facility] Comment on above: Performed By: #### L 500.4050, L100.0100, L501.9985, L501.9520, L500.4100 ####[facility] [address] [place], [address] Urea nitrogen [Mass/Vol] 37 mg/dL High 7-18 [facility] Comment on above: Performed By: #### L 500.4050, L100.0100, L501.9985, L501.9520, L500.4100 ####[facility] [address] [place], [address] Consultation - Cardiologyon 12-31-2023 Consultation - Cardiology Normal [facility] HH, Hemoglobin AND Hematocri ton 12-31-2023 HCT Normal 37-47 [facility] Comment on above: Result Comment: @GAL E RAS SAID IT WAS OK TO CANCEL@- DREX 12/31/232204 Performed By: #### L 100.0600 ####[facility] [address] [place], [address] HGB Normal 12.0-15.0 [facility] Comment on above: Result Comment: @GAL E [email or web address].comMAYE SAID IT WAS OK TO CANCEL@- DREX 12/31/232204 Performed By: #### L 100.0600 ####[facility] [address] [place], [address] HbA1c (Bld) [Mass fraction]O rdered By: Kanwal Aguilar on 12-31-2023 Hemoglobin A1c percentage 5.5 % 3.8-5.6 [facility] Hemoglobin A1con 12-31-2023 HbA1c (Bld) [Mass fraction] 5.5 % Normal 3.8-5.6 [facility] Comment on above: Result Comment: Norm al < 5.7 % Prediabetic 5.7 - 6.4 % Diabetic >or= 6.5 % Please note range changes. Performed By: #### L 500.4050, L100.0100, L501.9985, L501.9520, L500.4100 ####[facility] [address] [place], [address] High density lipoprotein (HD L) measurementOrdered By: Kanwal Aguilar on 12-31-2023 High density lipoprotein (HDL) measurement 69 mg/dL >40 [facility] L501.4020on 12-31-2023 TROPONIN-I HS 3067 pg/mL Invalid Interpretation Code 3.0-54.0 [facility] Comment on above: Order Comment: 'TROP ' Serial specimen #1, #2 or #3: 3 Result Comment: Crit ical Result(s) Called at: 01:14:27 12/31/2023 by:Wilfrid ferrer. Results read back by same. Please Note: New Test Units and Gender Specific Reference Ranges. For more information see Policy Stat Procedure Jackson High Sensitivity Troponin (TNIH) and attachments. Performed By: #### L 501.4020 ####[facility] [address] [place], [address] Lactic Acidon 12-31-2023 Lactate [Moles/Vol] 3.2 mmol/L Invalid Interpretation Code 0.4-1.9 [facility] Comment on above: Result Comment: Crit ical Result(s) Called at: 00:14:59 12/31/2023 by:Wilfrid fererr. Results read back by same. Performed By: #### L 503.6004 ####[facility] [address] [place], [address] Legionella Antigen Urineon 1 03-01-2023 LEGU Normal [facility] Comment on above: Performed By: #### M 300.0240 ####[facility] [address] [place], [address] Lipid Profileon 12-31-2023 Cholesterol [Mass/Vol] 161 mg/dL Normal 200 [facility] Comment on above: Result Comment: <200 mg/dL Desirable 200-240 mg/dL Borderline >240 mg/dL High Risk Performed By: #### L 500.4050, L100.0100, L501.9985, L501.9520, L500.4100 ####[facility] [address] [place], [address] Cholesterol in HDL [Mass/Vol] 69 mg/dL Normal [facility] Comment on above: Result Comment: The drugs N-Acetylcysteine and Metamizole may falselydepress this assay. Reference Range HDL <40 mg/dL Low HDL Cholesterol HDL >or= 60 mg/dL High HDL Cholesterol Performed By: #### L 500.4050, L100.0100, L501.9985, L501.9520, L500.4100 ####[facility] [address] [place], [address] Cholesterol in LDL [Mass/Vol] 68 mg/dL Normal 0-130 [facility] Comment on above: Performed By: #### L 500.4050, L100.0100, L501.9985, L501.9520, L500.4100 ####[facility] [address] [place], [address] Cholesterol in VLDL [Mass/Vol] 24 mg/dL Normal 5-40 [facility] Comment on above: Performed By: #### L 500.4050, L100.0100, L501.9985, L501.9520, L500.4100 ####[facility] [address] [place], [address] Triglyceride [Mass/Vol] 118 mg/dL Normal [facility] Comment on above: Result Comment: The drugs N-Acetylcysteine and Metamizole may falselydepress this assay.Serum Triglycerides Reference Interval Normal <150 mg/dL Borderline high 150 - 199 mg/dL High 200 - 499 mg/dL Very High > or = 500 mg/dL Performed By: #### L 500.4050, L100.0100, L501.9985, L501.9520, L500.4100 ####[facility] [address] [place], [address] Low density lipoprotein (LDL ) cholesterol measurementOrdered By: Kanwal Aguilar on 12-31-2023 Low density lipoprotein (LDL) cholesterol measurement 68 mg/dL 0-130 [facility] M8200.1000on 12-31-2023 M8200.1000 Normal Reference Ran ge = Negative MRSA DNA Nose Ql MARILEE+probe GeneXpert Instrument, PCR method MRSA PCR MRSA NEGATIVE Normal [facility] Comment on above: Performed By: #### M 8200.1000 ####[facility] [address] [place], [place], [address] MR/CON.PCM.GIon 12-31-2023 MR/CON.PCM.GI Normal [facility] Magnesiumon 12-31-2023 Magnesium [Mass/Vol] 3.5 mg/dL High 1.6-2.6 [facility] Comment on above: Result Comment: Slig ht Hemolysis, Result may be falsely increased. Performed By: #### L 501.5200 ####[facility] [address] [place], [place], [address] Magnesium measurementOrdered By: Kawnal Aguilar on 12-31-2023 Magnesium measurement 3.5 mg/dL High 1.6-2.6 [facility] Manual differential comment Minesh (Bld) [Interp]Ordered By: Kanwal Aguilar on 12-31-2023 Blood manual differential comment interpretation (narrative result) SCANNED [facility] Ovalocyte detectionOrdered B y: Kanwal Aguilar on 12-31-2023 Ovalocyte detection 1+ [facility] Pathologist review Minesh (Unsp spec) [Interp]Ordered By: Kanwal Aguilar on 12-31-2023 Review by pathologist Reviewed [facility] Platelets LM Ql (Bld)Ordered By: Kanwal Aguilar on 12-31-2023 Platelet estimate ADEQUATE ADEQ [facility] RESPIRATORY PANEL MOLECULARo n 12-31-2023 RP PANEL Normal [facility] Comment on above: Performed By: #### M 100.638 ####[facility] [address] [place], [address] TSH QnOrdered By: Kanwal Okeefe te on 12-31-2023 Serum or plasma thyroid stimulating hormone (TSH) measurement (units/volume) 2.700 uIU/mL 0.358-3.740 [facility] Thyroid Stim Hormone (TSH)on 12-31-2023 TSH 2.700 uIU/mL Normal 0.358-3.740 [facility] Comment on above: Performed By: #### L 500.4050, L100.0100, L501.9985, L501.9520, L500.4100 ####[facility] [address] [place], [place], [id number] Triglycerides measurementOrd ered By: Kanwal Aguilar on 12-31-2023 Triglycerides measurement 118 mg/dL <199 [facility] Troponin IOrdered By: on 12-31-2023 Troponin I 3067 pg/mL High 3.0-54.0 [facility] Very low density lipoprotein (VLDL) cholesterol measurementOrdered By: on 12-31-2023 Very low density lipoprotein (VLDL) cholesterol measurement 24 mg/dL 5-40 [facility] 12 Lead EKGon 12-30-2023 12 Lead EKG Normal [facility] 12 Lead EKG Normal [facility] BNP (brain natriuretic pepti de measurement)Ordered By: Yifan Zepeda on 12-30-2023 BNP (brain natriuretic peptide measurement) 3619.4 pg/mL High 0-100 [facility] BNP,B-Type NATRIURETIC PEPTI Faiza 12-30-2023 Natriuretic peptide B (Bld) [Mass/Vol] 3619.4 pg/mL High 0-100 [facility] Comment on above: Performed By: #### L 503.6620 ####[facility] [address] [facility] [place], [place], [id number] Bacteria LM.HPF (Urine sed) [#/Area]Ordered By: Yifan Zepeda on 12-30-2023 Urine sediment bacteria count by microscopy (number/high power field) 4+ /hpf None Seen [facility] Bilirubin Test strip Ql (U)O rdered By: Yifan Zepeda on 12-30-2023 Urine total bilirubin detection by test strip 1 mg/dL High Negative [facility] Blood cultureOrdered By: Diana Zepeda on 12-30-2023 Blood culture No growth in 5 days. [facility] CBC W/Diff, Automatedon 12-13 Absolute Lymph 1.17 X10 3/uL Normal 0.83-4.51 [facility] Comment on above: Performed By: #### L 503.6005, L300.4310, L500.4050, BTS, L300.3900, L501.4020, L501.2450, M100.7900, L100.0100 ####[facility] [address] [place], [address] Absolute Neut 17.3 X10 3/uL High 2.0-7.7 [facility] Comment on above: Performed By: #### L 503.6005, L300.4310, L500.4050, BTS, L300.3900, L501.4020, L501.2450, M100.7900, L100.0100 ####[facility] [address] [place], [address] Basophils/100 WBC (Bld) 0.2 % Normal 0-1 [facility] Comment on above: Performed By: #### L 503.6005, L300.4310, L500.4050, BTS, L300.3900, L501.4020, L501.2450, M100.7900, L100.0100 ####[facility] [address] [place], [address] Eosinophils/100 WBC (Bld) 0.0 % Normal 0-5 [facility] Comment on above: Performed By: #### L 503.6005, L300.4310, L500.4050, BTS, L300.3900, L501.4020, L501.2450, M100.7900, L100.0100 ####[facility] [address] [place], [address] Erythrocyte distribution width (RBC) [Ratio] 12.9 % Normal 11.6-14.6 [facility] Comment on above: Performed By: #### L 503.6005, L300.4310, L500.4050, BTS, L300.3900, L501.4020, L501.2450, M100.7900, L100.0100 ####[facility] [address] [place], [address] Hematocrit (Bld) [Volume fraction] 45.1 % Normal 37-47 [facility] Comment on above: Performed By: #### L 503.6005, L300.4310, L500.4050, BTS, L300.3900, L501.4020, L501.2450, M100.7900, L100.0100 ####[facility] [address] [place], [address] Hemoglobin (Bld) [Mass/Vol] 14.8 g/dL Normal 12.0-15.0 [facility] Comment on above: Performed By: #### L 503.6005, L300.4310, L500.4050, BTS, L300.3900, L501.4020, L501.2450, M100.7900, L100.0100 ####[facility] [address] [place], [address] IG% 0.600 Normal 0.0-0.9 [facility] Comment on above: Result Comment: IG% - Immature Granulocytes (promyelocytes, myelocytes andmetamyelocytes) > 1% indicates that a LEFT SHIFT is Present. Performed By: #### L 503.6005, L300.4310, L500.4050, BTS, L300.3900, L501.4020, L501.2450, M100.7900, L100.0100 ####[facility] [address] [place], [address] Lymphocytes/100 WBC (Bld) 6.0 % Low 19-41 [facility] Comment on above: Performed By: #### L 503.6005, L300.4310, L500.4050, BTS, L300.3900, L501.4020, L501.2450, M100.7900, L100.0100 ####[facility] [address] [place], [address] MCH (RBC) [Entitic mass] 29.6 pg Normal 27.0-32.0 [facility] Comment on above: Performed By: #### L 503.6005, L300.4310, L500.4050, BTS, L300.3900, L501.4020, L501.2450, M100.7900, L100.0100 ####[facility] [address] [place], [address] MCHC (RBC) [Mass/Vol] 32.8 g/dL Normal 32-36 [facility] Comment on above: Performed By: #### L 503.6005, L300.4310, L500.4050, BTS, L300.3900, L501.4020, L501.2450, M100.7900, L100.0100 ####[facility] [address] [place], [address] MCV (RBC) [Entitic vol] 90.2 fL Normal 81-99 [facility] Comment on above: Performed By: #### L 503.6005, L300.4310, L500.4050, BTS, L300.3900, L501.4020, L501.2450, M100.7900, L100.0100 ####[facility] [address] [place], [address] Monocytes/100 WBC (Bld) 3.7 % Normal 0-10 [facility] Comment on above: Performed By: #### L 503.6005, L300.4310, L500.4050, BTS, L300.3900, L501.4020, L501.2450, M100.7900, L100.0100 ####[facility] [address] [place], [address] Neutrophils/100 WBC (Bld) 89.5 % High 47-70 [facility] Comment on above: Performed By: #### L 503.6005, L300.4310, L500.4050, BTS, L300.3900, L501.4020, L501.2450, M100.7900, L100.0100 ####[facility] [address] [place], [address](087) Nucleated RBC (Bld) [#/Vol] 0 10*3/uL Normal 0-5 [facility] Comment on above: Performed By: #### L 503.6005, L300.4310, L500.4050, BTS, L300.3900, L501.4020, L501.2450, M100.7900, L100.0100 ####[facility] [address] [place], [place], [id number]) Platelet mean volume (Bld) [Entitic vol] 10.0 fL Normal 6.2-12.0 [facility] Comment on above: Performed By: #### L 503.6005, L300.4310, L500.4050, BTS, L300.3900, L501.4020, L501.2450, M100.7900, L100.0100 ####[facility] [address] [place], [address](032) Platelets (Bld) [#/Vol] 412 10*3/uL Normal 150-450 [facility] Comment on above: Performed By: #### L 503.6005, L300.4310, L500.4050, BTS, L300.3900, L501.4020, L501.2450, M100.7900, L100.0100 ####[facility] [address] [place], [address] RBC (Bld) [#/Vol] 5.00 10*6/uL Normal 4.2-5.4 [facility] Comment on above: Performed By: #### L 503.6005, L300.4310, L500.4050, BTS, L300.3900, L501.4020, L501.2450, M100.7900, L100.0100 ####[facility] [address] [place], [place], [id number] RDW SD 41.9 fl Normal 35.1-43.9 [facility] Comment on above: Performed By: #### L 503.6005, L300.4310, L500.4050, BTS, L300.3900, L501.4020, L501.2450, M100.7900, L100.0100 ####[facility] [address] [place], [address] WBC (Bld) [#/Vol] 19.4 10*3/uL High 4.4-11.0 [facility] Comment on above: Performed By: #### L 503.6005, L300.4310, L500.4050, BTS, L300.3900, L501.4020, L501.2450, M100.7900, L100.0100 ####[facility] [address] [place], [place], [address] CTA Chst, Abd, Pel W and/or WOon 12-30-2023 CTA Chst, Abd, Pel W and/or WO Normal [facility] Clarity (U)Ordered By: Yifan Zepeda on 12-30-2023 Urine clarity Turbid Clear [facility] Color (U)Ordered By: Yifan granger on 12-30-2023 Urine color determination Yellow Yellow [facility] Comprehensive Metabolic Prof ilon 12-30-2023 Albumin [Mass/Vol] 4.1 g/dL Normal 3.2-5.0 [facility] Comment on above: Order Comment: 'TROP ' Serial specimen #1, #2 or #3: 1 Performed By: #### L 503.6005, L300.4310, L500.4050, BTS, L300.3900, L501.4020, L501.2450, M100.7900, L100.0100 ####[facility] [address] [place], [address] Albumin/Globulin [Mass ratio] 1.0 {ratio} Normal 0.9-2.4 [facility] Comment on above: Order Comment: 'TROP ' Serial specimen #1, #2 or #3: 1 Performed By: #### L 503.6005, L300.4310, L500.4050, BTS, L300.3900, L501.4020, L501.2450, M100.7900, L100.0100 ####[facility] [address] [place], [address] ALK P 93 U/L Normal 45-117 [facility] Comment on above: Order Comment: 'TROP ' Serial specimen #1, #2 or #3: 1 Performed By: #### L 503.6005, L300.4310, L500.4050, BTS, L300.3900, L501.4020, L501.2450, M100.7900, L100.0100 ####[facility] [address] [place], [place], [id number] ALT [Catalytic activity/Vol] 38 U/L Normal 13-56 [facility] Comment on above: Order Comment: 'TROP ' Serial specimen #1, #2 or #3: 1 Performed By: #### L 503.6005, L300.4310, L500.4050, BTS, L300.3900, L501.4020, L501.2450, M100.7900, L100.0100 ####[facility] [address] [place], [address] AST [Catalytic activity/Vol] 36 U/L Normal 15-37 [facility] Comment on above: Order Comment: 'TROP ' Serial specimen #1, #2 or #3: 1 Performed By: #### L 503.6005, L300.4310, L500.4050, BTS, L300.3900, L501.4020, L501.2450, M100.7900, L100.0100 ####[facility] [address] [place], [address] Bilirubin [Mass/Vol] 0.70 mg/dL Normal 0.20-1.00 [facility] Comment on above: Order Comment: 'TROP ' Serial specimen #1, #2 or #3: 1 Result Comment: For patients on eltrombopag therapy, use of Dimension [place] TBIL is not recommended. Performed By: #### L 503.6005, L300.4310, L500.4050, BTS, L300.3900, L501.4020, L501.2450, M100.7900, L100.0100 ####[facility] [address] [place], [address] BUN/CRE 20.9 RATIO High 10-20 [facility] Comment on above: Order Comment: 'TROP ' Serial specimen #1, #2 or #3: 1 Performed By: #### L 503.6005, L300.4310, L500.4050, BTS, L300.3900, L501.4020, L501.2450, M100.7900, L100.0100 ####[facility] [facility] [address] [place], [address] CA,Total 9.6 mg/dL Normal 8.5-10.1 [facility] Comment on above: Order Comment: 'TROP ' Serial specimen #1, #2 or #3: 1 Performed By: #### L 503.6005, L300.4310, L500.4050, BTS, L300.3900, L501.4020, L501.2450, M100.7900, L100.0100 ####[facility] [address] [place], [address] Chloride [Moles/Vol] 105 mmol/L Normal 98-107 [facility] Comment on above: Order Comment: 'TROP ' Serial specimen #1, #2 or #3: 1 Performed By: #### L 503.6005, L300.4310, L500.4050, BTS, L300.3900, L501.4020, L501.2450, M100.7900, L100.0100 ####[facility] [address] [place], [address] CO2 [Moles/Vol] 21.0 mmol/L Normal 21.0-32.0 [facility] Comment on above: Order Comment: 'TROP ' Serial specimen #1, #2 or #3: 1 Performed By: #### L 503.6005, L300.4310, L500.4050, BTS, L300.3900, L501.4020, L501.2450, M100.7900, L100.0100 ####[facility] [address] [place], [address] Creatinine [Mass/Vol] 1.96 mg/dL High 0.55-1.02 [facility] Comment on above: Order Comment: 'TROP ' Serial specimen #1, #2 or #3: 1 Result Comment: The validity of the calculated GFR GFRAA in patients over70 years has not been determined. Clinical correlation isessential. Performed By: #### L 503.6005, L300.4310, L500.4050, BTS, L300.3900, L501.4020, L501.2450, M100.7900, L100.0100 ####[facility] [address] [place], [address] ECRCL 25.36 ml/min Normal [facility] Comment on above: Order Comment: 'TROP ' Serial specimen #1, #2 or #3: 1 Performed By: #### L 503.6005, L300.4310, L500.4050, BTS, L300.3900, L501.4020, L501.2450, M100.7900, L100.0100 ####[facility] [address] [place], [address] EST GFR - AA 32 mL/min Low >60 [facility] Comment on above: Order Comment: 'TROP ' Serial specimen #1, #2 or #3: 1 Result Comment: Afri can [place] GFR Calc Performed By: #### L 503.6005, L300.4310, L500.4050, BTS, L300.3900, L501.4020, L501.2450, M100.7900, L100.0100 ####[facility] [address] [place], [address] GAP 14 Normal 5-15 [facility] Comment on above: Order Comment: 'TROP ' Serial specimen #1, #2 or #3: 1 Performed By: #### L 503.6005, L300.4310, L500.4050, BTS, L300.3900, L501.4020, L501.2450, M100.7900, L100.0100 ####[facility] [address] [place], [address] GFR/1.73 sq M.predicted among non-blacks MDRD (S/P/Bld) [Vol rate/Area] 27 mL/min/{1.73_m2} Low >60 [facility] Comment on above: Order Comment: 'TROP ' Serial specimen #1, #2 or #3: 1 Result Comment: Non- GFR Calc Performed By: #### L 503.6005, L300.4310, L500.4050, BTS, L300.3900, L501.4020, L501.2450, M100.7900, L100.0100 ####[facility] [address] [place], [address] Globulin (S) [Mass/Vol] 4.1 g/dL Normal 2.2-4.2 [facility] Comment on above: Order Comment: 'TROP ' Serial specimen #1, #2 or #3: 1 Performed By: #### L 503.6005, L300.4310, L500.4050, BTS, L300.3900, L501.4020, L501.2450, M100.7900, L100.0100 ####[facility] [address] [place], [address] Glucose [Mass/Vol] 405 mg/dL High 74-106 [facility] Comment on above: Order Comment: 'TROP ' Serial specimen #1, #2 or #3: 1 Result Comment: Gluc ose result greater than or equal to 200 mg/dLsuggests DIABETES MELLITUS per A.D.A. criteria. Performed By: #### L 503.6005, L300.4310, L500.4050, BTS, L300.3900, L501.4020, L501.2450, M100.7900, L100.0100 ####[facility] [address] [place], [address] Potassium [Moles/Vol] 3.8 mmol/L Normal 3.5-5.1 [facility] Comment on above: Order Comment: 'TROP ' Serial specimen #1, #2 or #3: 1 Performed By: #### L 503.6005, L300.4310, L500.4050, BTS, L300.3900, L501.4020, L501.2450, M100.7900, L100.0100 ####[facility] [address] [place], [address] Sodium [Moles/Vol] 140 mmol/L Normal 136-145 [facility] Comment on above: Order Comment: 'TROP ' Serial specimen #1, #2 or #3: 1 Performed By: #### L 503.6005, L300.4310, L500.4050, BTS, L300.3900, L501.4020, L501.2450, M100.7900, L100.0100 ####[facility] [address] [place], [address] T PROT 8.2 g/dL Normal 6.4-8.2 [facility] Comment on above: Order Comment: 'TROP ' Serial specimen #1, #2 or #3: 1 Performed By: #### L 503.6005, L300.4310, L500.4050, BTS, L300.3900, L501.4020, L501.2450, M100.7900, L100.0100 ####[facility] [address] [place], [address] Urea nitrogen [Mass/Vol] 41 mg/dL High 7-18 [facility] Comment on above: Order Comment: 'TROP ' Serial specimen #1, #2 or #3: 1 Performed By: #### L 503.6005, L300.4310, L500.4050, BTS, L300.3900, L501.4020, L501.2450, M100.7900, L100.0100 ####[facility] [address] [place], [address] Consultation - Intensiviston 12-30-2023 Consultation - Color Separation Photographer Normal [facility] Echo Complete W/ Contraston 12-30-2023 Echo Complete W/ Contrast Normal [facility] Emergency Department Summary on 12-30-2023 Emergency Department Summary Normal [facility] Glucose Ql (U)Ordered By: Ciro Zepeda on 12-30-2023 Urine glucose detection 50 mg/dl High Normal [facility] H AND P Exam - Hospitaliston 12-30-2023 H&P Exam - Hospitalist Normal [facility] HH, Hemoglobin AND Hematocri ton 12-30-2023 Hematocrit (Bld) [Volume fraction] 43.4 % Normal 37-47 [facility] Comment on above: Performed By: #### L 100.0600 ####[facility] [address] [place], [address] Hemoglobin (Bld) [Mass/Vol] 13.5 g/dL Normal 12.0-15.0 [facility] Comment on above: Performed By: #### L 100.0600 ####[facility] [address] [place], [place], [address] Hyaline casts LM.LPF (Urine sed) [#/Area]Ordered By: Yifan Zepeda on 12-30-2023 Urine sediment hyaline cast count by microscopy (number/low power field) 0-5 SEEN /lpf 0-5 [facility] International normalized rat io (INR) calculationOrdered By: Yiafn Zepeda on 12-30-2023 International normalized ratio (INR) calculation 1.1 [facility] L501.4020on 12-30-2023 TROPONIN-I HS 2585 pg/mL Invalid Interpretation Code 3.0-54.0 [facility] Comment on above: Order Comment: 'TROP ' Serial specimen #1, #2 or #3: 2 Result Comment: Crit ical Result(s) Called at: 22:10:33 12/30/2023 by: TOÑO JOSEPH. Results read back by same. Please Note: New Test Units and Gender Specific Reference Ranges. For more information see Policy Stat Procedure Jackson High Sensitivity Troponin (TNIH) and attachments. Performed By: #### L 501.4020 ####[facility] [address] [place], [place], [id number] TROPONIN-I HS 2872 pg/mL Invalid Interpretation Code 3.0-54.0 [facility] Comment on above: Order Comment: 'TROP ' Serial specimen #1, #2 or #3: 1 Result Comment: Crit ical Result(s) Called at: 20:22:43 12/30/2023 by: TOÑO NAVARRETE. Results read back by same. Please Note: New Test Units and Gender Specific Reference Ranges. For more information see Policy Stat Procedure [facility] High Sensitivity Troponin (TNIH) and attachments. Performed By: #### L 503.6005, L300.4310, L500.4050, BTS, L300.3900, L501.4020, L501.2450, M100.7900, L100.0100 ####[facility] [address] [place], [place], [id number] Lactic Acidon 12-30-2023 Lactate [Moles/Vol] 3.2 mmol/L Invalid Interpretation Code 0.4-1.9 [facility] Comment on above: Order Comment: Y Result Comment: Crit ical Result(s) Called at: 20:24:24 12/30/2023 by: TOÑO NAVARRETE. Results read back by same. Performed By: #### L 503.6005, L300.4310, L500.4050, BTS, L300.3900, L501.4020, L501.2450, M100.7900, L100.0100 ####[facility] [address] [place], [address] Lactic acid measurementOrder ed By: Yifan Zepeda on 12-30-2023 Lactic acid measurement 3.2 mmol/L High 0.4-2.0 [facility] Leukocyte esterase Test stri p Ql (U)Ordered By: Yifan Zepeda on 12-30-2023 Urine leukocyte esterase detection by dipstick 500 /ul High Negative [facility] Lipaseon 12-30-2023 Lipase [Catalytic activity/Vol] 20 U/L Normal 13-75 [facility] Comment on above: Order Comment: 'TROP ' Serial specimen #1, #2 or #3: 1 Result Comment: La aguilar note:LIPASE revised reference range effective 22.New Lipase methodology. Expected to produce lower valuesthan the previous assay method.NEW Reference Range: 13 - 75 U/L Performed By: #### L 503.6005, L300.4310, L500.4050, BTS, L300.3900, L501.4020, L501.2450, M100.7900, L100.0100 ####[facility] [address] [place], [address] Lower GI hemoglobin IA Ql (S tl)Ordered By: Yifan Zepeda on 12-30-2023 Stool gastrointestinal hemoglobin detection by immunologic method Positive Abnormal [facility] M100.678on 12-30-2023 M100.678 Pending SARS-CoV-2 (COVID 19) Negative INFLUENZA A Negative INFLUENZA B Negative RSV PCR Negative Normal [facility] Comment on above: Performed By: #### M 100.2200, M100.678 ####[facility] [address] [place], [address] Magnesiumon 12-30-2023 Magnesium [Mass/Vol] 1.3 mg/dL Low 1.6-2.6 [facility] Comment on above: Order Comment: Comme nts: may add to ED labs Result Comment: Slig ht Hemolysis, Result may be falsely increased. Performed By: #### L 501.5200 ####[facility] [address] [place], [address] Microscopic analysis of urin e for red blood cells (RBC)Ordered By: Yifan Zepeda on 12-30-2023 Microscopic analysis of urine for red blood cells (RBC) 5-10 SEEN /hpf 0-5 [facility] Mucus LM Ql (Urine sed)Order ed By: Yifan Zepeda on 12-30-2023 Mucus detection in urine sediment by light microscopy 0 SEEN /hpf [facility] Partial Thromboplast Timeon 12-30-2023 aPTT Coag (Bld) [Time] 26.1 s Normal 24.1-36.2 [facility] Comment on above: Performed By: #### L 503.6005, L300.4310, L500.4050, BTS, L300.3900, L501.4020, L501.2450, M100.7900, L100.0100 ####[facility] [address] [place], [address] Protein Test strip Ql (U)Ord ered By: Yifan Zepeda on 12-30-2023 Urine protein assay by test strip, semi-quantitative 100 mg/dl High Negative [facility] Prothrombin Time w/INRon INR Coag (PPP) [Relative time] 1.1 {INR} Normal [facility] Comment on above: Performed By: #### L 503.6005, L300.4310, L500.4050, BTS, L300.3900, L501.4020, L501.2450, M100.7900, L100.0100 ####[facility] [address] [place], [place], [address] PT Coag (PPP) [Time] 14.4 s Normal 11.7-14.9 [facility] Comment on above: Performed By: #### L 503.6005, L300.4310, L500.4050, BTS, L300.3900, L501.4020, L501.2450, M100.7900, L100.0100 ####[facility] [address] [place], [place], [id number] Prothrombin timeOrdered By: Yifan Zepeda on 12-30-2023 Prothrombin time 14.4 SECONDS 11.7-14.9 [facility] Specific gravity (U) [Rel de nsity]Ordered By: Yifan Zepeda on 12-30-2023 Urine specific gravity measurement 1.025 1.002-1.030 [facility] Squamous epithelial cells de tection in urine sediment by light microscopyOrdered By: Yifan Zepeda on 12-30-2023 Squamous epithelial cells detection in urine sediment by light microscopy 0-5 SEEN /hpf 0-5 [facility] Stool Occult Blood iFOBon STOB Positive Normal [facility] Comment on above: Performed By: #### L 503.6005, L300.4310, L500.4050, BTS, L300.3900, L501.4020, L501.2450, M100.7900, L100.0100 ####[facility] [address] [place], [place], [address] Type AND Screenon 12-30-2023 Ab SCREEN GEL Negative Normal [facility] Comment on above: Order Comment: A Performed By: #### L 503.6005, L300.4310, L500.4050, BTS, L300.3900, L501.4020, L501.2450, M100.7900, L100.0100 ####[facility] [address] [place], [address] ABO and Rh group Nom (Bld) Blood group O Rh(D) positive Normal [facility] Comment on above: Order Comment: A Performed By: #### L 503.6005, L300.4310, L500.4050, BTS, L300.3900, L501.4020, L501.2450, M100.7900, L100.0100 ####[facility] [address] [place], [address] Urinalysis, Completeon 12-29 RBC 5-10 SEEN Normal 0-5 [facility] Comment on above: Order Comment: CLEAN CATCH Performed By: #### L 400.0001 ####[facility] [address] [place], [address] EPI,RENAL 0-5 SEEN Normal 0-5 [facility] Comment on above: Order Comment: CLEAN CATCH Performed By: #### L 400.0001 ####[facility] [address] [place], [address] EPI,SQUAMOUS 0-5 SEEN Normal 5-10 [facility] Comment on above: Order Comment: CLEAN CATCH Performed By: #### L 400.0001 ####[facility] [address] [place], [address] WBC 50-100 SEEN Normal 0-5 [facility] Comment on above: Order Comment: CLEAN CATCH Performed By: #### L 400.0001 ####[facility] [address] [place], [address] BACTERIA 4+ /hpf Normal None Seen [facility] Comment on above: Order Comment: CLEAN CATCH Performed By: #### L 400.0001 ####[facility] [address] [place], [address] CAST,HYALINE 0-5 SEEN Normal 0-5 [facility] Comment on above: Order Comment: CLEAN CATCH Performed By: #### L 400.0001 ####[facility] [address] [place], [address] Mucus Ql (Urine sed) 0 SEEN Normal [facility] Comment on above: Order Comment: CLEAN CATCH Performed By: #### L 400.0001 ####[facility] [address] [place], [address] Urine blood detectionOrdered By: Yifan Zepeda on 12-30-2023 Urine blood detection 25 /ul High Negative [facility] Urine cultureOrdered By: Diana Zepeda on 12-30-2023 Urine culture Presumptive E. coli Abnormal [facility] Urine ketones detection by t est stripOrdered By: Yifan Zepeda on 12-30-2023 Urine ketones detection by test strip Negative Negative [facility] Urobilinogen Ql (U)Ordered B y: Yifan Zepeda on 12-30-2023 Urine urobilinogen measurement Normal mg/dl Normal [facility] White blood cell countOrdere d By: Yifan Zepeda on 12-30-2023 White blood cell count 50-100 SEEN /hpf 0-5 [facility] aPTT Coag (PPP) [Time]Ordere d By: Yifan Zepeda on 12-30-2023 Activated partial thromboplastin time (aPTT) in platelet poor plasma by coagulation a 26.1 Seconds 24.1-36.2 [facility] pH (U)Ordered By: Yifan obrien on 12-30-2023 Urine pH 5.0 5.0 - 8.0 [facility] 04-26-2023 36 Spoke to the nurse brown braga informed her any medication questions needs to be answered from PCP [facility] 36 Ruthie spoke to her. Any medication questions need to go through PCP [facility] 04-23-2023 36 [facility] 04-20-2023 36 Rudy w/ [facility] called in w/ drug allergies the pt has: Oxy- codeine allergy, Oxycodone- Morphine allergy, Meloxicam- Naproxen allergy. Rudy wants to make sure its ok to give pt meds or not. Please Advise [phone]. Normal [facility] 36 Normal [facility] Absolute lymphocyte countOrd ered By: Anuja Murcia on 04-18-2023 Lymphocytes Auto (Unsp spec) [#/Vol] 2.09 10*3/uL 0.83-4.51 [facility] Automated lymphocyte count a s percentage of total leukocytesOrdered By: Anuja Murcia on 04-18-2023 Lymphocytes/100 WBC Auto (Unsp spec) 25.6 % 19-41 [facility] Basophil percentageOrdered B y: Anuja Murcia on 04-18-2023 Basophil percentage 12.0 g/dL 12.0-15.0 [facility] Basophil percentage 105 mg/dL 74-106 [facility] Basophil percentage 143 mmol/L 136-145 [facility] Basophil percentage 3.8 mmol/L 3.5-5.1 [facility] Basophil percentage 112 mmol/L 98-107 [facility] Basophils (Bld) [#/Vol] 8.2 10*3/uL 4.4-11.0 [facility] Basophils (Bld) [#/Vol] 5.3 10*3/uL 2.0-7.7 [facility] Basophils/100 WBC (Bld) 65.0 % 47-70 [facility] Basophils/100 WBC (Bld) 6.3 % 0-10 [facility] Basophils/100 WBC (Bld) 2.8 % 0-5 [facility] Basophils/100 WBC (Bld) 0.1 % 0-1 [facility] Chloride [Moles/Vol] 112 mmol/L 98-107 [facility] Eosinophils/100 WBC (Bld) 2.8 % 0-5 [facility] Glucose [Mass/Vol] 105 mg/dL 74-106 [facility] Comment on above: Fasting Glucose resu lt from 100 to 125 mg/dL suggests IMPAIRED HOMEOSTASIS per A.D.A. criteria. Hemoglobin (Bld) [Mass/Vol] 12.0 g/dL 12.0-15.0 [facility] Monocytes/100 WBC (Bld) 6.3 % 0-10 [facility] Neutrophils (Bld) [#/Vol] 5.3 10*3/uL 2.0-7.7 [facility] Neutrophils/100 WBC (Bld) 65.0 % 47-70 [facility] Potassium [Moles/Vol] 3.8 mmol/L 3.5-5.1 [facility] Sodium [Moles/Vol] 143 mmol/L 136-145 [facility] WBC (Bld) [#/Vol] 8.2 10*3/uL 4.4-11.0 [facility] Determination of erythrocyte mean corpuscular volume (MCV)Ordered By: Anuja Murcia on 04-18-2023 MCV (RBC) [Entitic vol] 87.2 fL 81-99 [facility] Erythrocyte distribution wid th ratioOrdered By: Anuja Murcia on 04-18-2023 Erythrocyte distribution width (RBC) [Ratio] 14.0 % 11.6-14.6 [facility] Erythrocyte distribution wid th standard deviationOrdered By: Anuja Murcia on 04-18-2023 Erythrocyte distribution width (RBC) [Entitic vol] 45.2 fL 35.1-43.9 [facility] Hematocrit Auto (Bld) [Volum e fraction]Ordered By: Anuja Murcia on 04-18-2023 Hematocrit (Bld) [Volume fraction] 37.6 % 37-47 [facility] Immature granulocytes/100 WB C Auto (Bld)Ordered By: Anuja Murcia on 04-18-2023 Immature granulocytes/100 WBC (Bld) 0.200 % 0.0-0.9 [facility] Comment on above: IG% - Immature Granu locytes (promyelocytes, myelocytes and metamyelocytes) > 1% indicates that a LEFT SHIFT is Present. Laboratory - Chemistry and C hemistry - challengeOrdered By: Anuja Murcia on 04-18-2023 CO2 [Moles/Vol] 23.0 mmol/L 21.0-32.0 [facility] Urea nitrogen/Creatinine [Mass ratio] 12.2 mg/mg 10-20 [facility] Laboratory - Hematology and Cell countsOrdered By: Anuja Murcia on 04-18-2023 MCH (RBC) [Entitic mass] 27.8 pg 27.0-32.0 [facility] MCHC (RBC) [Mass/Vol] 31.9 g/dL 32-36 [facility] Nucleated RBC/100 WBC (Bld) [Ratio] 0 % 0-5 [facility] Platelet mean volume (Bld) [Entitic vol] 9.6 fL 6.2-12.0 [facility] Platelets (Bld) [#/Vol] 230 10*3/uL 150-450 [facility] No Panel InformationOrdered By: Anuja Murcia on 04-18-2023 Estimated Creatinine Clearance Calc 67.27 ml/min [facility] Estimated GFR (MDRD) Amer 134 mL/min >60 [facility] Comment on above: GFR Calc Estimated GFR (MDRD) Non-Af Amer 111 mL/min >60 [facility] Comment on above: Non- GFR Calc 27.8 pg 27.0-32.0 [facility] 31.9 g/dL 32-36 [facility] 230 K/mm3 150-450 [facility] 9.6 fl 6.2-12.0 [facility] 0 % 0-5 [facility] 111 mL/min >60 [facility] 134 mL/min >60 [facility] 67.27 ml/min [facility] 12.2 RATIO 10-20 [facility] 23.0 mmol/L 21.0-32.0 [facility] RBC Auto (Bld) [#/Vol]Ordere d By: Anuja Murcia on 04-18-2023 RBC (Bld) [#/Vol] 4.31 10*6/uL 4.2-5.4 [facility] Serum or plasma calcium timbo urement (mass/volume)Ordered By: Anuja Murcia on 04-18-2023 Calcium [Mass/Vol] 8.6 mg/dL 8.5-10.1 [facility] Serum or plasma creatinine m easurement (mass/volume)Ordered By: Anuja Murcia on 04-18-2023 Creatinine [Mass/Vol] 0.57 mg/dL 0.55-1.02 [facility] Comment on above: The validity of the calculated GFR & GFRAA in patients over 70 years has not been determined. Clinical correlation is essential. Serum or plasma urea nitroge n measurement (mass/volume)Ordered By: Anuja Murcia on 04-18-2023 Urea nitrogen [Mass/Vol] 7 mg/dL 7-18 [facility] Thin prep Papanicolaou smear with manual screeningOrdered By: Anuja Murcia on 04-18-2023 Thin prep Papanicolaou smear with manual screening 8 5-15 [facility] Thin prep Papanicolaou smear with manual screening 115 mg/dL 74-106 [facility] Comment on above: MANAGEMENT OF PATIEN T CARE PER NURSING PROTOCOL 36on 04-17-2023 36 [facility] Basophil percentageOrdered B y: Anuja Murcia on 04-17-2023 Basophil percentage 2.3 mg/dL 2.5-4.9 [facility] Laboratory - Chemistry and C hemistry - challengeOrdered By: Anuja Murcia on 04-17-2023 Magnesium [Mass/Vol] 1.5 mg/dL 1.6-2.6 [facility] No Panel InformationOrdered By: Anuja Murcia on 04-17-2023 1.5 mg/dL 1.6-2.6 [facility] Basophil percentageOrdered B y: Anuja Brown on 04-15-2023 Basophil percentage 6.3 g/dL 6.4-8.2 [facility] Basophil percentage 0.50 mg/dL 0.20-1.00 [facility] Bilirubin [Mass/Vol] 0.50 mg/dL 0.20-1.00 [facility] Comment on above: For patients on eltr ombopag therapy, use of Dimension Jackson TBIL is not recommended. Protein [Mass/Vol] 6.3 g/dL 6.4-8.2 [facility] Laboratory - Chemistry and C hemistry - challengeOrdered By: Anuja Brown on 04-15-2023 Albumin/Globulin [Mass ratio] 1.0 {ratio} 0.9-2.4 [facility] ALP [Catalytic activity/Vol] 73 U/L 45-117 [facility] ALT [Catalytic activity/Vol] 14 U/L 13-56 [facility] Globulin (S) [Mass/Vol] 3.2 g/dL 2.2-4.2 [facility] Lipase [Catalytic activity/Vol] 19 U/L - [facility] Comment on above: Please note:LIPASE r evised reference range effective 22. New Lipase methodology. Expected to produce lower values than the previous assay method. NEW Reference Range: 13 - 75 U/L No Panel InformationOrdered By: Anuja Brown on 04-15-2023 3.2 g/dL 2.2-4.2 [facility] 1.0 RATIO 0.9-2.4 [facility] 19 U/L 1375 [facility] 73 U/L 45-117 [facility] 14 U/L 13-56 [facility] Serum or plasma thyroid stim ulating hormone (TSH) measurement (units/volume)Ordered By: Anuja Brown on 04-15-2023 TSH Qn 3.89 uIU/mL 0.358-3.74 [facility] Thin prep Papanicolaou smear with manual screeningOrdered By: Anuja Brown on 04-15-2023 Thin prep Papanicolaou smear with manual screening 3.1 g/dL 3.2-5.0 [facility] Thin prep Papanicolaou smear with manual screening 12 U/L 15-37 [facility] Absolute lymphocyte countOrd ered By: Marcos Hoffman on 04-14-2023 Lymphocytes Auto (Unsp spec) [#/Vol] 1.59 10*3/uL 0.83-4.51 [facility] Assessment of wrist artery p atency prior to arterial punctureOrdered By: Tamiko Quigley on 04-14-2023 Arterial patency Wrist artery --pre arterial puncture Positive [facility] Automated lymphocyte count a s percentage of total leukocytesOrdered By: Marcos Hoffman on 04-14-2023 Lymphocytes/100 WBC Auto (Unsp spec) 8.2 % 19-41 [facility] Bacteria identified Cx Nom ( U)Ordered By: Marcos Hoffman on 04-14-2023 Culture, urine Presumptive E. coli [facility] Base excessOrdered By: Mari Quigley on 04-14-2023 Base excess Calc (BldV) [Moles/Vol] -3 mmol/L -2-2 [facility] Basophil percentageOrdered B y: Tamiko Quigley on 04-14-2023 Basophil percentage 24 mmol/L [facility] Basophils/100 WBC (Bld) 97 % 95-99 [facility] Basophil percentageOrdered B y: Marcos Hoffman on 04-14-2023 Basophil percentage 15.9 g/dL 12.0-15.0 [facility] Basophil percentage 312 mg/dL 74-106 [facility] Basophil percentage 9.1 g/dL 6.4-8.2 [facility] Basophil percentage 1.20 mg/dL 0.20-1.00 [facility] Basophil percentage 137 mmol/L 136-145 [facility] Basophil percentage 4.2 mmol/L 3.5-5.1 [facility] Basophil percentage 101 mmol/L 98-107 [facility] Basophils (Bld) [#/Vol] 19.4 10*3/uL 4.4-11.0 [facility] Basophils (Bld) [#/Vol] 17.2 10*3/uL 2.0-7.7 [facility] Basophils/100 WBC (Bld) 88.6 % 47-70 [facility] Basophils/100 WBC (Bld) 2.2 % 0-10 [facility] Basophils/100 WBC (Bld) 0.2 % 0-1 [facility] Basophil percentage 1.9 mmol/L 0.4-2.0 [facility] Lactate [Moles/Vol] 1.9 mmol/L 0.4-2.0 [facility] Basophil percentage 5-10 SEEN /hpf 0-5 [facility] Ammonia (P) [Moles/Vol] 41.0 umol/L 11-32 [facility] Comment on above: Gross Hemolysis, Res ult may be falsely increased. Basophil percentage 41.0 umol/L 11-32 [facility] Basophil percentageOrdered B y: Anuja Brown on 04-14-2023 Basophil percentage 182 mg/dL <200 [facility] Basophil percentage 98 mg/dL <199 [facility] Cholesterol [Mass/Vol] 182 mg/dL <200 [facility] Comment on above: <200 mg/dL Desirable 200-240 mg/dL Borderline >240 mg/dL High Risk Triglyceride [Mass/Vol] 98 mg/dL <199 [facility] Comment on above: The drugs N-Acetylcy steine and Metamizole may falsely depress this assay.Serum Triglycerides Reference Interval Normal <150 mg/dL Borderline high 150 - 199 mg/dL High 200 - 499 mg/dL Very High > or = 500 mg/dL Bilirubin Test strip Ql (U)O rdered By: Marcos Hoffman on 04-14-2023 Bilirubin Ql (U) Negative Negative [facility] Culture, urineOrdered By: Kaela Hoffman on 04-14-2023 Bacteria identified Cx Nom (U) Presumptive E. coli [facility] Determination of erythrocyte mean corpuscular volume (MCV)Ordered By: Marcos Hoffman on 04-14-2023 MCV (RBC) [Entitic vol] 86.8 fL 81-99 [facility] Direct bilirubinOrdered By: Marcos Hoffman on 04-14-2023 Bilirubin.direct [Mass/Vol] 0.17 mg/dL 0.00-0.30 [facility] Erythrocyte distribution wid th ratioOrdered By: Marcos Hoffman on 04-14-2023 Erythrocyte distribution width (RBC) [Ratio] 13.8 % 11.6-14.6 [facility] Erythrocyte distribution wid th standard deviationOrdered By: Marcos Hoffman on 04-14-2023 Erythrocyte distribution width (RBC) [Entitic vol] 44.0 fL 35.1-43.9 [facility] Hematocrit Auto (Bld) [Volum e fraction]Ordered By: Marcos Hoffman on 04-14-2023 Hematocrit (Bld) [Volume fraction] 51.3 % 37-47 [facility] Immature granulocytes/100 WB C Auto (Bld)Ordered By: Marcos Hoffman on 04-14-2023 Immature granulocytes/100 WBC (Bld) 0.600 % 0.0-0.9 [facility] Ketones Test strip Ql (U)Ord ered By: Marcos Hoffman on 04-14-2023 Ketones Ql (U) 50 mg/dl Negative [facility] Laboratory - Chemistry and C hemistry - challengeOrdered By: Anuja Brown on 04-14-2023 Cholesterol in HDL [Mass/Vol] 63 mg/dL >40 [facility] Comment on above: The drugs N-Acetylcy steine and Metamizole may falsely depress this assay. Reference Range HDL <40 mg/dL Low HDL Cholesterol HDL >or= 60 mg/dL High HDL Cholesterol Cholesterol in LDL [Mass/Vol] 99 mg/dL 0-130 [facility] Laboratory - Microbiology an d Antimicrobial susceptibilityOrdered By: Marcos Hoffman on 04-14-2023 Bacteria identified Cx Nom (Bld) No growth in 5 days. [facility] Measurement, pHOrdered By: Mary Quigley on 04-14-2023 pH (Unsp spec) 7.37 [pH] 7.35-7.45 [facility] Mucus LM Ql (Urine sed)Order ed By: Marcos Hoffman on 04-14-2023 Mucus Ql (Urine sed) 0 SEEN /hpf [facility] Nitrite Test strip Ql (U)Ord ered By: Marcos Hoffman on 04-14-2023 Nitrite Ql (U) Negative Negative [facility] No Panel InformationOrdered By: Tamiko Quigley on 04-14-2023 Arterial Blood Partial Pressure CO2 38.8 mmHg 35-45 [facility] Arterial Blood Partial Pressure O2 96 mmHG 75-100 [facility] Blood Gas Bicarbonate Actual 22.3 mmol/L 22- [facility] Blood Gas Oxygen Percent 2.0 [facility] Blood Gas Sample Site R [facility] Blood Gas Specimen Type ART [facility] Blood Gas Vent Mode Not entered [facility] Oxygen Delivery Device Cannula [facility] ART [facility] R [facility] Not entered [facility] Cannula [facility] 2.0 [facility] 38.8 mmHg 35-45 [facility] 96 mmHG 75-100 [facility] 22.3 mmol/L 22-26 [facility] No Panel InformationOrdered By: Anuja Brown on 04-14-2023 VLDL Cholesterol 20 mg/dL 5-40 [facility] 63 mg/dL >40 [facility] 99 mg/dL 0-130 [facility] 20 mg/dL 5-40 [facility] No Panel InformationOrdered By: Marcos Hoffman on 04-14-2023 26.9 pg 27.0-32.0 [facility] 31.0 g/dL 32-36 [facility] 366 K/mm3 150-450 [facility] 9.9 fl 6.2-12.0 [facility] 0 % 0-5 [facility] 55 mL/min >60 [facility] 67 mL/min >60 [facility] 50.55 ml/min [facility] 15.2 RATIO 10-20 [facility] 4.7 g/dL 2.2-4.2 [facility] 21 U/L 13-75 [facility] 127 U/L 45-117 [facility] 19 U/L 13-56 [facility] 24.0 mmol/L 21.0-32.0 [facility] Urine RBC 0 SEEN /hpf 0-5 [facility] 0 SEEN /hpf 0-5 [facility] Protein Test strip Ql (U)Ord ered By: Marcos Hoffman on 04-14-2023 Protein Ql (U) 500 mg/dl Negative [facility] RBC Auto (Bld) [#/Vol]Ordere d By: Marcos Hoffman on 04-14-2023 RBC (Bld) [#/Vol] 5.91 10*6/uL 4.2-5.4 [facility] Serum or plasma calcium timbo urement (mass/volume)Ordered By: Marcos Hoffman on 04-14-2023 Calcium [Mass/Vol] 10.1 mg/dL 8.5-10.1 [facility] Serum or plasma creatinine m easurement (mass/volume)Ordered By: Marcos Hoffman on 04-14-2023 Creatinine [Mass/Vol] 1.05 mg/dL 0.55-1.02 [facility] Serum or plasma urea nitroge n measurement (mass/volume)Ordered By: Marcos Hoffman on 04-14-2023 Urea nitrogen [Mass/Vol] 16 mg/dL 7-18 [facility] Serum procalcitonin measurem entOrdered By: Marcos Hoffman on 04-14-2023 Procalcitonin [Mass/Vol] 0.12 ng/mL 0.00-0.09 [facility] Comment on above: A procalcitonin (PCT [...] Ql (Urine sed) 0 SEEN /hpf 5-10 [facility] Thin prep Papanicolaou smear with manual screeningOrdered By: Marcos Hoffman on 04-14-2023 Thin prep Papanicolaou smear with manual screening 4.4 g/dL 3.2-5.0 [facility] Thin prep Papanicolaou smear with manual screening 28 U/L 15-37 [facility] Thin prep Papanicolaou smear with manual screening 12 5-15 [facility] Urine blood detectionOrdered By: Marcos Hoffman on 04-14-2023 RBC Ql (U) 25 /ul Negative [facility] Urine clarityOrdered By: Augie Hoffman on 04-14-2023 Clarity (U) Sl. Cloudy Clear [facility] Urine color determinationOrd ered By: Marcos Hoffman on 04-14-2023 Color (U) Yellow Yellow [facility] Urine glucose detectionOrder ed By: Marcos Hoffman on 04-14-2023 Glucose Ql (U) 1000 mg/dl Normal [facility] Urine leukocyte esterase det ection by dipstickOrdered By: Marcos Hoffman on 04-14-2023 Leukocyte esterase Test strip Ql (U) 25 /ul Negative [facility] Urine pHOrdered By: Marcos larry on 04-14-2023 pH (U) 7.0 [pH] 5.0 - 8.0 [facility] Urine sediment bacteria coun t by microscopy (number/high power field)Ordered By: Marcos Hoffman on 04-14-2023 Bacteria LM.HPF (Urine sed) [#/Area] 3 /[HPF] None Seen [facility] Urine specific gravity measu rementOrdered By: Marcos Hoffman on 04-14-2023 Specific gravity (U) [Rel density] 1.010 1.002-1.030 [facility] Urine urobilinogen measureme ntOrdered By: Marcos Hoffman on 04-14-2023 Urobilinogen Ql (U) Normal mg/dl Normal [facility] 36on 04-12-2023 36 Normal [facility] Progress Noteon 04-10-2023 Progress Note Normal [facility] XR FEMUR 2+ VW RIGHTon 04-10 XR FEMUR 2+ VW RIGHT 2v right femur show the Intertan nail remains in good position.The fracture is well-aligned and remains unchanged from prior films. The fracture is still visualized. There has been some shortening. Normal [facility] Basophil percentageOrdered B y: Radha Crenshawdread on 03-26-2023 Basophil percentage 11.1 g/dL 12.0-15.0 [facility] Basophil percentage 124 mg/dL 74-106 [facility] Basophil percentage 6.7 g/dL 6.4-8.2 [facility] Basophil percentage 0.30 mg/dL 0.20-1.00 [facility] Basophil percentage 143 mmol/L 136-145 [facility] Basophil percentage 3.8 mmol/L 3.5-5.1 [facility] Basophil percentage 115 mmol/L 98-107 [facility] Basophils (Bld) [#/Vol] 8.6 10*3/uL 4.4-11.0 [facility] Bilirubin [Mass/Vol] 0.30 mg/dL 0.20-1.00 [facility] Comment on above: For patients on eltr ombopag therapy, use of Dimension [place] TBIL is not recommended. Chloride [Moles/Vol] 115 mmol/L 98-107 [facility] Glucose [Mass/Vol] 124 mg/dL 74-106 [facility] Comment on above: Fasting Glucose resu lt from 100 to 125 mg/dL suggests IMPAIRED HOMEOSTASIS per A.D.A. criteria. Hemoglobin (Bld) [Mass/Vol] 11.1 g/dL 12.0-15.0 [facility] Potassium [Moles/Vol] 3.8 mmol/L 3.5-5.1 [facility] Protein [Mass/Vol] 6.7 g/dL 6.4-8.2 [facility] Sodium [Moles/Vol] 143 mmol/L 136-145 [facility] WBC (Bld) [#/Vol] 8.6 10*3/uL 4.4-11.0 [facility] Determination of erythrocyte mean corpuscular volume (MCV)Ordered By: Radha Elliott on 03-26-2023 MCV (RBC) [Entitic vol] 89.4 fL 81-99 [facility] Erythrocyte distribution wid th ratioOrdered By: Radhakristen Elliott on 03-26-2023 Erythrocyte distribution width (RBC) [Ratio] 13.8 % 11.6-14.6 [facility] Erythrocyte distribution wid th standard deviationOrdered By: Radha Elliott on 03-26-2023 Erythrocyte distribution width (RBC) [Entitic vol] 45.1 fL 35.1-43.9 [facility] Hematocrit Auto (Bld) [Volum e fraction]Ordered By: Radha Elliott on 03-26-2023 Hematocrit (Bld) [Volume fraction] 36.2 % 37-47 [facility] Laboratory - Chemistry and C hemistry - challengeOrdered By: Radha Elliott on 03-26-2023 Albumin/Globulin [Mass ratio] 0.9 {ratio} 0.9-2.4 [facility] ALP [Catalytic activity/Vol] 97 U/L 45-117 [facility] ALT [Catalytic activity/Vol] 11 U/L 13-56 [facility] CO2 [Moles/Vol] 23.0 mmol/L 21.0-32.0 [facility] Globulin (S) [Mass/Vol] 3.5 g/dL 2.2-4.2 [facility] Urea nitrogen/Creatinine [Mass ratio] 40.7 mg/mg 10-20 [facility] Laboratory - Hematology and Cell countsOrdered By: Radha Elliott on 03-26-2023 MCH (RBC) [Entitic mass] 27.4 pg 27.0-32.0 [facility] MCHC (RBC) [Mass/Vol] 30.7 g/dL 32-36 [facility] Platelet mean volume (Bld) [Entitic vol] 9.5 fL 6.2-12.0 [facility] Platelets (Bld) [#/Vol] 289 10*3/uL 150-450 [facility] No Panel InformationOrdered By: Radha Elliott on 03-26-2023 Estimated GFR (MDRD) Amer 100 mL/min >60 [facility] Comment on above: GFR Calc Estimated GFR (MDRD) Non-Af Amer 83 mL/min >60 [facility] Comment on above: Non- GFR Calc 27.4 pg 27.0-32.0 [facility] 30.7 g/dL 32-36 [facility] 289 K/mm3 150-450 [facility] 9.5 fl 6.2-12.0 [facility] 83 mL/min >60 [facility] 100 mL/min >60 [facility] 40.7 RATIO 10-20 [facility] 3.5 g/dL 2.2-4.2 [facility] 0.9 RATIO 0.9-2.4 [facility] 97 U/L 45-117 [facility] 11 U/L 13-56 [facility] 23.0 mmol/L 21.0-32.0 [facility] RBC Auto (Bld) [#/Vol]Ordere d By: Radha Elliott on 03-26-2023 RBC (Bld) [#/Vol] 4.05 10*6/uL 4.2-5.4 [facility] Serum or plasma calcium timbo urement (mass/volume)Ordered By: Radha Elliott on 03-26-2023 Calcium [Mass/Vol] 8.9 mg/dL 8.5-10.1 [facility] Serum or plasma creatinine m easurement (mass/volume)Ordered By: Radha Elliott on 03-26-2023 Creatinine [Mass/Vol] 0.74 mg/dL 0.55-1.02 [facility] Comment on above: The validity of the calculated GFR & GFRAA in patients over 70 years has not been determined. Clinical correlation is essential. Serum or plasma urea nitroge n measurement (mass/volume)Ordered By: Radha Elliott on 03-26-2023 Urea nitrogen [Mass/Vol] 30 mg/dL 7-18 [facility] Thin prep Papanicolaou smear with manual screeningOrdered By: Radha Elliott on 03-26-2023 Thin prep Papanicolaou smear with manual screening 3.2 g/dL 3.2-5.0 [facility] Thin prep Papanicolaou smear with manual screening 14 U/L 15-37 [facility] Thin prep Papanicolaou smear with manual screening 5 5-15 [facility] Basophil percentageOrdered B y: Radha Elliott on 03-19-2023 Basophil percentage 11.2 g/dL 12.0-15.0 [facility] Basophil percentage 108 mg/dL 74-106 [facility] Basophil percentage 7.2 g/dL 6.4-8.2 [facility] Basophil percentage 0.30 mg/dL 0.20-1.00 [facility] Basophil percentage 140 mmol/L 136-145 [facility] Basophil percentage 4.1 mmol/L 3.5-5.1 [facility] Basophil percentage 111 mmol/L 98-107 [facility] Basophils (Bld) [#/Vol] 8.4 10*3/uL 4.4-11.0 [facility] Bilirubin [Mass/Vol] 0.30 mg/dL 0.20-1.00 [facility] Comment on above: For patients on eltr ombopag therapy, use of Dimension [place] TBIL is not recommended. Chloride [Moles/Vol] 111 mmol/L 98-107 [facility] Glucose [Mass/Vol] 108 mg/dL 74-106 [facility] Comment on above: Fasting Glucose resu lt from 100 to 125 mg/dL suggests IMPAIRED HOMEOSTASIS per A.D.A. criteria. Hemoglobin (Bld) [Mass/Vol] 11.2 g/dL 12.0-15.0 [facility] Potassium [Moles/Vol] 4.1 mmol/L 3.5-5.1 [facility] Protein [Mass/Vol] 7.2 g/dL 6.4-8.2 [facility] Sodium [Moles/Vol] 140 mmol/L 136-145 [facility] WBC (Bld) [#/Vol] 8.4 10*3/uL 4.4-11.0 [facility] Determination of erythrocyte mean corpuscular volume (MCV)Ordered By: Radha Elliott on 03-19-2023 MCV (RBC) [Entitic vol] 90.2 fL 81-99 [facility] Erythrocyte distribution wid th ratioOrdered By: Radhakristen Elliott on 03-19-2023 Erythrocyte distribution width (RBC) [Ratio] 13.8 % 11.6-14.6 [facility] Erythrocyte distribution wid th standard deviationOrdered By: Radhakristen Elliott on 03-19-2023 Erythrocyte distribution width (RBC) [Entitic vol] 45.3 fL 35.1-43.9 [facility] Hematocrit Auto (Bld) [Volum e fraction]Ordered By: Radha Elliott on 03-19-2023 Hematocrit (Bld) [Volume fraction] 36.7 % 37-47 [facility] Laboratory - Chemistry and C hemistry - challengeOrdered By: Rdahakristen Elliott on 03-19-2023 Albumin/Globulin [Mass ratio] 0.8 {ratio} 0.9-2.4 [facility] ALP [Catalytic activity/Vol] 107 U/L 45-117 [facility] ALT [Catalytic activity/Vol] 14 U/L 13-56 [facility] CO2 [Moles/Vol] 26.0 mmol/L 21.0-32.0 [facility] Globulin (S) [Mass/Vol] 3.9 g/dL 2.2-4.2 [facility] Urea nitrogen/Creatinine [Mass ratio] 43.4 mg/mg 10-20 [facility] Laboratory - Hematology and Cell countsOrdered By: Radha Elliott on 03-19-2023 MCH (RBC) [Entitic mass] 27.5 pg 27.0-32.0 [facility] MCHC (RBC) [Mass/Vol] 30.5 g/dL 32-36 [facility] Platelets (Bld) [#/Vol] 304 10*3/uL 150-450 [facility] No Panel InformationOrdered By: Radha Elliott on 03-19-2023 Estimated GFR (MDRD) Amer 100 mL/min >60 [facility] Comment on above: GFR Calc Estimated GFR (MDRD) Non-Af Amer 83 mL/min >60 [facility] Comment on above: Non- GFR Calc 27.5 pg 27.0-32.0 [facility] 30.5 g/dL 32-36 [facility] 304 K/mm3 150-450 [facility] 83 mL/min >60 [facility] 100 mL/min >60 [facility] 43.4 RATIO 10-20 [facility] 3.9 g/dL 2.2-4.2 [facility] 0.8 RATIO 0.9-2.4 [facility] 107 U/L 45-117 [facility] 14 U/L 13-56 [facility] 26.0 mmol/L 21.0-32.0 [facility] Platelet mean volume Malick-Ec ker (Bld) [Entitic vol]Ordered By: Radha Elliott on 03-19-2023 Platelet mean volume (Bld) [Entitic vol] 9.4 fL 6.2-12.0 [facility] RBC Auto (Bld) [#/Vol]Ordere d By: Radha Elliott on 03-19-2023 RBC (Bld) [#/Vol] 4.07 10*6/uL 4.2-5.4 [facility] Serum or plasma calcium timbo urement (mass/volume)Ordered By: Radha Elliott on 03-19-2023 Calcium [Mass/Vol] 9.1 mg/dL 8.5-10.1 [facility] Serum or plasma creatinine m easurement (mass/volume)Ordered By: Radha Elliott on 03-19-2023 Creatinine [Mass/Vol] 0.74 mg/dL 0.55-1.02 [facility] Comment on above: The validity of the calculated GFR & GFRAA in patients over 70 years has not been determined. Clinical correlation is essential. Serum or plasma urea nitroge n measurement (mass/volume)Ordered By: Radha Elliott on 03-19-2023 Urea nitrogen [Mass/Vol] 32 mg/dL 7-18 [facility] Thin prep Papanicolaou smear with manual screeningOrdered By: Radha Elliott on 03-19-2023 Thin prep Papanicolaou smear with manual screening 3.3 g/dL 3.2-5.0 [facility] Thin prep Papanicolaou smear with manual screening 7 U/L 15-37 [facility] Thin prep Papanicolaou smear with manual screening 3 5-15 [facility] Basophil percentageOrdered B y: Radha Elliott on 03-12-2023 Basophil percentage 11.8 g/dL 12.0-15.0 [facility] Basophil percentage 97 mg/dL 74-106 [facility] Basophil percentage 6.7 g/dL 6.4-8.2 [facility] Basophil percentage 0.30 mg/dL 0.20-1.00 [facility] Basophil percentage 141 mmol/L 136-145 [facility] Basophil percentage 4.3 mmol/L 3.5-5.1 [facility] Basophil percentage 113 mmol/L 98-107 [facility] Basophils (Bld) [#/Vol] 7.4 10*3/uL 4.4-11.0 [facility] Bilirubin [Mass/Vol] 0.30 mg/dL 0.20-1.00 [facility] Comment on above: For patients on eltr ombopag therapy, use of Dimension [place] TBIL is not recommended. Chloride [Moles/Vol] 113 mmol/L 98-107 [facility] Glucose [Mass/Vol] 97 mg/dL 74-106 [facility] Hemoglobin (Bld) [Mass/Vol] 11.8 g/dL 12.0-15.0 [facility] Potassium [Moles/Vol] 4.3 mmol/L 3.5-5.1 [facility] Protein [Mass/Vol] 6.7 g/dL 6.4-8.2 [facility] Sodium [Moles/Vol] 141 mmol/L 136-145 [facility] WBC (Bld) [#/Vol] 7.4 10*3/uL 4.4-11.0 [facility] Determination of erythrocyte mean corpuscular volume (MCV)Ordered By: Radha Elliott on 03-12-2023 MCV (RBC) [Entitic vol] 89.7 fL 81-99 [facility] Erythrocyte distribution wid th ratioOrdered By: Radha Elliott on 03-12-2023 Erythrocyte distribution width (RBC) [Ratio] 13.6 % 11.6-14.6 [facility] Erythrocyte distribution wid th standard deviationOrdered By: Radha Elliott on 03-12-2023 Erythrocyte distribution width (RBC) [Entitic vol] 44.8 fL 35.1-43.9 [facility] Hematocrit Auto (Bld) [Volum e fraction]Ordered By: Radha Elliott on 03-12-2023 Hematocrit (Bld) [Volume fraction] 39.0 % 37-47 [facility] Laboratory - Chemistry and C hemistry - challengeOrdered By: Radhakristen Elliott on 03-12-2023 Albumin/Globulin [Mass ratio] 0.9 {ratio} 0.9-2.4 [facility] ALP [Catalytic activity/Vol] 98 U/L 45-117 [facility] ALT [Catalytic activity/Vol] 13 U/L 13-56 [facility] CO2 [Moles/Vol] 26.0 mmol/L 21.0-32.0 [facility] Globulin (S) [Mass/Vol] 3.6 g/dL 2.2-4.2 [facility] Urea nitrogen/Creatinine [Mass ratio] 33.5 mg/mg 10-20 [facility] Laboratory - Hematology and Cell countsOrdered By: Radha Elliott on 03-12-2023 MCH (RBC) [Entitic mass] 27.1 pg 27.0-32.0 [facility] MCHC (RBC) [Mass/Vol] 30.3 g/dL 32-36 [facility] Platelets (Bld) [#/Vol] 321 10*3/uL 150-450 [facility] No Panel InformationOrdered By: Radha Elliott on 03-12-2023 Estimated GFR (MDRD) Amer 99 mL/min >60 [facility] Comment on above: GFR Calc Estimated GFR (MDRD) Non-Af Amer 82 mL/min >60 [facility] Comment on above: Non- GFR Calc 27.1 pg 27.0-32.0 [facility] 30.3 g/dL 32-36 [facility] 321 K/mm3 150-450 [facility] 82 mL/min >60 [facility] 99 mL/min >60 [facility] 33.5 RATIO 10-20 [facility] 3.6 g/dL 2.2-4.2 [facility] 0.9 RATIO 0.9-2.4 [facility] 98 U/L 45-117 [facility] 13 U/L 13-56 [facility] 26.0 mmol/L 21.0-32.0 [facility] Platelet mean volume Malick-Ec ker (Bld) [Entitic vol]Ordered By: Radha Elliott on 03-12-2023 Platelet mean volume (Bld) [Entitic vol] 9.3 fL 6.2-12.0 [facility] RBC Auto (Bld) [#/Vol]Ordere d By: Radha Elliott on 03-12-2023 RBC (Bld) [#/Vol] 4.35 10*6/uL 4.2-5.4 [facility] Serum or plasma calcium timbo urement (mass/volume)Ordered By: Radha Elliott on 03-12-2023 Calcium [Mass/Vol] 9.3 mg/dL 8.5-10.1 [facility] Serum or plasma creatinine m easurement (mass/volume)Ordered By: Radha Elliott on 03-12-2023 Creatinine [Mass/Vol] 0.75 mg/dL 0.55-1.02 [facility] Comment on above: The validity of the calculated GFR & GFRAA in patients over 70 years has not been determined. Clinical correlation is essential. Serum or plasma urea nitroge n measurement (mass/volume)Ordered By: Radha Elliott on 03-12-2023 Urea nitrogen [Mass/Vol] 25 mg/dL 7-18 [facility] Thin prep Papanicolaou smear with manual screeningOrdered By: Radha Elliott on 03-12-2023 Thin prep Papanicolaou smear with manual screening 3.1 g/dL 3.2-5.0 [facility] Thin prep Papanicolaou smear with manual screening 13 U/L 15-37 [facility] Thin prep Papanicolaou smear with manual screening 2 5-15 [facility] Basophil percentageOrdered B y: Radha Elliott on 03-05-2023 Basophil percentage 11.5 g/dL 12.0-15.0 [facility] Basophil percentage 112 mg/dL 74-106 [facility] Basophil percentage 6.7 g/dL 6.4-8.2 [facility] Basophil percentage 0.30 mg/dL 0.20-1.00 [facility] Basophil percentage 140 mmol/L 136-145 [facility] Basophil percentage 4.0 mmol/L 3.5-5.1 [facility] Basophil percentage 108 mmol/L 98-107 [facility] Basophils (Bld) [#/Vol] 7.7 10*3/uL 4.4-11.0 [facility] Bilirubin [Mass/Vol] 0.30 mg/dL 0.20-1.00 [facility] Comment on above: For patients on eltr ombopag therapy, use of Dimension Jackson TBIL is not recommended. Chloride [Moles/Vol] 108 mmol/L 98-107 [facility] Glucose [Mass/Vol] 112 mg/dL 74-106 [facility] Comment on above: Fasting Glucose resu lt from 100 to 125 mg/dL suggests IMPAIRED HOMEOSTASIS per A.D.A. criteria. Hemoglobin (Bld) [Mass/Vol] 11.5 g/dL 12.0-15.0 [facility] Potassium [Moles/Vol] 4.0 mmol/L 3.5-5.1 [facility] Protein [Mass/Vol] 6.7 g/dL 6.4-8.2 [facility] Sodium [Moles/Vol] 140 mmol/L 136-145 [facility] WBC (Bld) [#/Vol] 7.7 10*3/uL 4.4-11.0 [facility] Determination of erythrocyte mean corpuscular volume (MCV)Ordered By: Radha Elliott on 03-05-2023 MCV (RBC) [Entitic vol] 90.4 fL 81-99 [facility] Erythrocyte distribution wid th ratioOrdered By: Radha Elliott on 03-05-2023 Erythrocyte distribution width (RBC) [Ratio] 13.5 % 11.6-14.6 [facility] Erythrocyte distribution wid th standard deviationOrdered By: Radha Elliott on 03-05-2023 Erythrocyte distribution width (RBC) [Entitic vol] 44.5 fL 35.1-43.9 [facility] Hematocrit Auto (Bld) [Volum e fraction]Ordered By: Radha Elliott on 03-05-2023 Hematocrit (Bld) [Volume fraction] 37.7 % 37-47 [facility] Laboratory - Chemistry and C hemistry - challengeOrdered By: Radha Elliott on 03-05-2023 Albumin/Globulin [Mass ratio] 0.9 {ratio} 0.9-2.4 [facility] ALP [Catalytic activity/Vol] 100 U/L 45-117 [facility] ALT [Catalytic activity/Vol] 12 U/L 13-56 [facility] CO2 [Moles/Vol] 29.0 mmol/L 21.0-32.0 [facility] Globulin (S) [Mass/Vol] 3.6 g/dL 2.2-4.2 [facility] Urea nitrogen/Creatinine [Mass ratio] 31.9 mg/mg 10-20 [facility] - Hematology and Cell countsOrdered By: Radha Elliott on 03-05-2023 MCH (RBC) [Entitic mass] 27.6 pg 27.0-32.0 [facility] MCHC (RBC) [Mass/Vol] 30.5 g/dL 32-36 [facility] Platelets (Bld) [#/Vol] 306 10*3/uL 150-450 [facility] No Panel InformationOrdered By: Radha Elliott on 03-05-2023 Estimated GFR (MDRD) Amer 103 mL/min >60 [facility] Comment on above: GFR Calc Estimated GFR (MDRD) Non-Af Amer 85 mL/min >60 [facility] Comment on above: Non- GFR Calc 27.6 pg 27.0-32.0 [facility] 30.5 g/dL 32-36 [facility] 306 K/mm3 150-450 [facility] 85 mL/min >60 [facility] 103 mL/min >60 [facility] 31.9 RATIO 10-20 [facility] 3.6 g/dL 2.2-4.2 [facility] 0.9 RATIO 0.9-2.4 [facility] 100 U/L 45-117 [facility] 12 U/L 13-56 [facility] 29.0 mmol/L 21.0-32.0 [facility] Platelet mean volume Malick-Ec ker (Bld) [Entitic vol]Ordered By: Radha Elliott on 03-05-2023 Platelet mean volume (Bld) [Entitic vol] 9.1 fL 6.2-12.0 [facility] RBC Auto (Bld) [#/Vol]Ordere d By: Radha Elliott on 03-05-2023 RBC (Bld) [#/Vol] 4.17 10*6/uL 4.2-5.4 [facility] Serum or plasma calcium timbo urement (mass/volume)Ordered By: Radha Elliott on 03-05-2023 Calcium [Mass/Vol] 9.3 mg/dL 8.5-10.1 [facility] Serum or plasma creatinine m easurement (mass/volume)Ordered By: Radha Elliott on 03-05-2023 Creatinine [Mass/Vol] 0.72 mg/dL 0.55-1.02 [facility] Comment on above: The validity of the calculated GFR & GFRAA in patients over 70 years has not been determined. Clinical correlation is essential. Serum or plasma urea nitroge n measurement (mass/volume)Ordered By: Radha Elliott on 03-05-2023 Urea nitrogen [Mass/Vol] 23 mg/dL 7-18 [facility] Thin prep Papanicolaou smear with manual screeningOrdered By: Radha Elliott on 03-05-2023 Thin prep Papanicolaou smear with manual screening 3.1 g/dL 3.2-5.0 [facility] Thin prep Papanicolaou smear with manual screening 13 U/L 15-37 [facility] Thin prep Papanicolaou smear with manual screening 3 5-15 [facility] Basophil percentageOrdered B y: Radha Elliott on 02-26-2023 Basophil percentage 93 mg/dL 74-106 [facility] Basophil percentage 6.6 g/dL 6.4-8.2 [facility] Basophil percentage 0.40 mg/dL 0.20-1.00 [facility] Basophil percentage 141 mmol/L 136-145 [facility] Basophil percentage 4.0 mmol/L 3.5-5.1 [facility] Basophil percentage 108 mmol/L 98-107 [facility] Basophils (Bld) [#/Vol] 7.6 10*3/uL 4.4-11.0 [facility] Bilirubin [Mass/Vol] 0.40 mg/dL 0.20-1.00 [facility] Comment on above: For patients on eltr ombopag therapy, use of Dimension [place] TBIL is not recommended. Chloride [Moles/Vol] 108 mmol/L 98-107 [facility] Glucose [Mass/Vol] 93 mg/dL 74-106 [facility] Potassium [Moles/Vol] 4.0 mmol/L 3.5-5.1 [facility] Protein [Mass/Vol] 6.6 g/dL 6.4-8.2 [facility] Sodium [Moles/Vol] 141 mmol/L 136-145 [facility] WBC (Bld) [#/Vol] 7.6 10*3/uL 4.4-11.0 [facility] Blood erythrocytes count (nu mber/volume)Ordered By: Radha Elliott on 02-26-2023 RBC (Bld) [#/Vol] 4.03 10*6/uL 4.2-5.4 [facility] Blood hemoglobin measurement (mass/volume)Ordered By: Radha Elliott on 02-26-2023 Hemoglobin (Bld) [Mass/Vol] 11.2 g/dL 12.0-15.0 [facility] Blood platelet mean volumeOr dered By: Radha Elliott on 02-26-2023 Platelet mean volume (Bld) [Entitic vol] 9.3 fL 6.2-12.0 [facility] Determination of erythrocyte mean corpuscular volume (MCV)Ordered By: Radha Elliott on 02-26-2023 MCV (RBC) [Entitic vol] 91.8 fL 81-99 [facility] Hematocrit Auto (Bld) [Volum e fraction]Ordered By: Radha Elliott on 02-26-2023 Hematocrit (Bld) [Volume fraction] 37.0 % 37-47 [facility] Laboratory - Chemistry and C hemistry - challengeOrdered By: Radha Elliott on 02-26-2023 ALP [Catalytic activity/Vol] 90 U/L 45-117 [facility] ALT [Catalytic activity/Vol] 12 U/L 13-56 [facility] CO2 [Moles/Vol] 27.0 mmol/L 21.0-32.0 [facility] Globulin (S) [Mass/Vol] 3.7 g/dL 2.2-4.2 [facility] Urea nitrogen/Creatinine [Mass ratio] 35.1 mg/mg 10-20 [facility] - Hematology and Cell countsOrdered By: Radhakristen Elliott on 02-26-2023 Erythrocyte distribution width (RBC) [Entitic vol] 45.9 fL 35.1-43.9 [facility] Erythrocyte distribution width (RBC) [Ratio] 13.6 % 11.6-14.6 [facility] MCH (RBC) [Entitic mass] 27.8 pg 27.0-32.0 [facility] MCHC Auto (RBC) [Mass/Vol]Or dered By: Radha Elliott on 02-26-2023 MCHC (RBC) [Mass/Vol] 30.3 g/dL 32-36 [facility] No Panel InformationOrdered By: Radha Elliott on 02-26-2023 Estimated GFR (MDRD) Amer 110 mL/min >60 [facility] Comment on above: GFR Calc Estimated GFR (MDRD) Non-Af Amer 91 mL/min >60 [facility] Comment on above: Non- GFR Calc 27.8 pg 27.0-32.0 [facility] 13.6 % 11.6-14.6 [facility] 45.9 fl 35.1-43.9 [facility] 91 mL/min >60 [facility] 110 mL/min >60 [facility] 35.1 RATIO 10-20 [facility] 3.7 g/dL 2.2-4.2 [facility] 90 U/L 45-117 [facility] 12 U/L 13-56 [facility] 27.0 mmol/L 21.0-32.0 [facility] Platelets bldOrdered By: Kuldip Elliott on 02-26-2023 Platelets (Bld) [#/Vol] 312 10*3/uL 150-450 [facility] Serum or plasma albumin timbo urement (mass/volume)Ordered By: Radha Elliott on 02-26-2023 Albumin [Mass/Vol] 2.9 g/dL 3.2-5.0 [facility] Serum or plasma albumin/glob ulin mass ratioOrdered By: Radha Elliott on 02-26-2023 Albumin/Globulin [Mass ratio] 0.8 {ratio} 0.9-2.4 [facility] Serum or plasma calcium timbo urement (mass/volume)Ordered By: Radha Elliott on 02-26-2023 Calcium [Mass/Vol] 8.7 mg/dL 8.5-10.1 [facility] Serum or plasma creatinine m easurement (mass/volume)Ordered By: Radha Elliott on 02-26-2023 Creatinine [Mass/Vol] 0.68 mg/dL 0.55-1.02 [facility] Comment on above: The validity of the calculated GFR & GFRAA in patients over 70 years has not been determined. Clinical correlation is essential. Serum or plasma urea nitroge n measurement (mass/volume)Ordered By: Radha Elliott on 02-26-2023 Urea nitrogen [Mass/Vol] 24 mg/dL 7-18 [facility] Thin prep Papanicolaou smear with manual screeningOrdered By: Radha Elliott on 02-26-2023 Thin prep Papanicolaou smear with manual screening 14 U/L 15-37 [facility] Thin prep Papanicolaou smear with manual screening 6 5-15 [facility] Basophil percentageOrdered B y: Radha Elliott on 02-19-2023 Basophil percentage 82 mg/dL 74-106 [facility] Basophil percentage 6.8 g/dL 6.4-8.2 [facility] Basophil percentage 0.40 mg/dL 0.20-1.00 [facility] Basophil percentage 138 mmol/L 136-145 [facility] Basophil percentage 3.7 mmol/L 3.5-5.1 [facility] Basophil percentage 106 mmol/L 98-107 [facility] Basophils (Bld) [#/Vol] 7.2 10*3/uL 4.4-11.0 [facility] Bilirubin [Mass/Vol] 0.40 mg/dL 0.20-1.00 [facility] Comment on above: For patients on eltr ombopag therapy, use of Dimension [place] TBIL is not recommended. Chloride [Moles/Vol] 106 mmol/L 98-107 [facility] Glucose [Mass/Vol] 82 mg/dL 74-106 [facility] Potassium [Moles/Vol] 3.7 mmol/L 3.5-5.1 [facility] Protein [Mass/Vol] 6.8 g/dL 6.4-8.2 [facility] Sodium [Moles/Vol] 138 mmol/L 136-145 [facility] WBC (Bld) [#/Vol] 7.2 10*3/uL 4.4-11.0 [facility] Blood erythrocytes count (nu mber/volume)Ordered By: Radha Elliott on 02-19-2023 RBC (Bld) [#/Vol] 4.23 10*6/uL 4.2-5.4 [facility] Blood hemoglobin measurement (mass/volume)Ordered By: Radha Elliott on 02-19-2023 Hemoglobin (Bld) [Mass/Vol] 11.8 g/dL 12.0-15.0 [facility] Blood platelet mean volumeOr dered By: Radha Elliott on 02-19-2023 Platelet mean volume (Bld) [Entitic vol] 9.3 fL 6.2-12.0 [facility] Determination of erythrocyte mean corpuscular volume (MCV)Ordered By: Radha Elliott on 02-19-2023 MCV (RBC) [Entitic vol] 93.4 fL 81-99 [facility] Hematocrit Auto (Bld) [Volum e fraction]Ordered By: Radha Elliott on 02-19-2023 Hematocrit (Bld) [Volume fraction] 39.5 % 37-47 [facility] Laboratory - Chemistry and C hemistry - challengeOrdered By: Radha Elliott on 02-19-2023 ALP [Catalytic activity/Vol] 103 U/L 45-117 [facility] ALT [Catalytic activity/Vol] 11 U/L 13-56 [facility] CO2 [Moles/Vol] 26.0 mmol/L 21.0-32.0 [facility] Globulin (S) [Mass/Vol] 3.7 g/dL 2.2-4.2 [facility] Urea nitrogen/Creatinine [Mass ratio] 33.3 mg/mg 10-20 [facility] - Hematology and Cell countsOrdered By: Radha Elliott on 02-19-2023 Erythrocyte distribution width (RBC) [Entitic vol] 47.4 fL 35.1-43.9 [facility] Erythrocyte distribution width (RBC) [Ratio] 13.8 % 11.6-14.6 [facility] MCH (RBC) [Entitic mass] 27.9 pg 27.0-32.0 [facility] MCHC Auto (RBC) [Mass/Vol]Or dered By: Radha Elliott on 02-19-2023 MCHC (RBC) [Mass/Vol] 29.9 g/dL 32-36 [facility] No Panel InformationOrdered By: Radha Elliott on 02-19-2023 Estimated GFR (MDRD) Amer 98 mL/min >60 [facility] Comment on above: GFR Calc Estimated GFR (MDRD) Non-Af Amer 81 mL/min >60 [facility] Comment on above: Non- GFR Calc 27.9 pg 27.0-32.0 [facility] 13.8 % 11.6-14.6 [facility] 47.4 fl 35.1-43.9 [facility] 81 mL/min >60 [facility] 98 mL/min >60 [facility] 33.3 RATIO 10-20 [facility] 3.7 g/dL 2.2-4.2 [facility] 103 U/L 45-117 [facility] 11 U/L 13-56 [facility] 26.0 mmol/L 21.0-32.0 [facility] Platelets bldOrdered By: Kuldip Elliott on 02-19-2023 Platelets (Bld) [#/Vol] 334 10*3/uL 150-450 [facility] Serum or plasma albumin timbo urement (mass/volume)Ordered By: Radha Elliott on 02-19-2023 Albumin [Mass/Vol] 3.1 g/dL 3.2-5.0 [facility] Serum or plasma albumin/glob ulin mass ratioOrdered By: Radha Elliott on 02-19-2023 Albumin/Globulin [Mass ratio] 0.8 {ratio} 0.9-2.4 [facility] Serum or plasma calcium timbo urement (mass/volume)Ordered By: Radha Elliott on 02-19-2023 Calcium [Mass/Vol] 9.2 mg/dL 8.5-10.1 [facility] Serum or plasma creatinine m easurement (mass/volume)Ordered By: Radha Elliott on 02-19-2023 Creatinine [Mass/Vol] 0.75 mg/dL 0.55-1.02 [facility] Comment on above: The validity of the calculated GFR & GFRAA in patients over 70 years has not been determined. Clinical correlation is essential. Serum or plasma urea nitroge n measurement (mass/volume)Ordered By: Radha Elliott on 02-19-2023 Urea nitrogen [Mass/Vol] 25 mg/dL 7-18 [facility] Thin prep Papanicolaou smear with manual screeningOrdered By: Radha Elliott on 02-19-2023 Thin prep Papanicolaou smear with manual screening 11 U/L 15-37 [facility] Thin prep Papanicolaou smear with manual screening 6 5-15 [facility] Basophil percentageOrdered B y: Radha Elliott on 02-13-2023 Basophil percentage 97 mg/dL 74-106 [facility] Basophil percentage 6.7 g/dL 6.4-8.2 [facility] Basophil percentage 0.40 mg/dL 0.20-1.00 [facility] Basophil percentage 138 mmol/L 136-145 [facility] Basophil percentage 4.0 mmol/L 3.5-5.1 [facility] Basophil percentage 108 mmol/L 98-107 [facility] Basophils (Bld) [#/Vol] 7.8 10*3/uL 4.4-11.0 [facility] Bilirubin [Mass/Vol] 0.40 mg/dL 0.20-1.00 [facility] Comment on above: For patients on eltr ombopag therapy, use of Dimension [place] TBIL is not recommended. Chloride [Moles/Vol] 108 mmol/L 98-107 [facility] Glucose [Mass/Vol] 97 mg/dL 74-106 [facility] Potassium [Moles/Vol] 4.0 mmol/L 3.5-5.1 [facility] Protein [Mass/Vol] 6.7 g/dL 6.4-8.2 [facility] Sodium [Moles/Vol] 138 mmol/L 136-145 [facility] WBC (Bld) [#/Vol] 7.8 10*3/uL 4.4-11.0 [facility] Blood erythrocytes count (nu mber/volume)Ordered By: Radha Elliott on 02-13-2023 RBC (Bld) [#/Vol] 3.92 10*6/uL 4.2-5.4 [facility] Blood hemoglobin measurement (mass/volume)Ordered By: Radha Elliott on 02-13-2023 Hemoglobin (Bld) [Mass/Vol] 11.1 g/dL 12.0-15.0 [facility] Blood platelet mean volumeOr dered By: Radha Elliott on 02-13-2023 Platelet mean volume (Bld) [Entitic vol] 9.0 fL 6.2-12.0 [facility] Determination of erythrocyte mean corpuscular volume (MCV)Ordered By: Radha Elliott on 02-13-2023 MCV (RBC) [Entitic vol] 93.4 fL 81-99 [facility] Hematocrit Auto (Bld) [Volum e fraction]Ordered By: Radha Elliott on 02-13-2023 Hematocrit (Bld) [Volume fraction] 36.6 % 37-47 [facility] Laboratory - Chemistry and C hemistry - challengeOrdered By: Radha Elliott on 02-13-2023 ALP [Catalytic activity/Vol] 104 U/L 45-117 [facility] ALT [Catalytic activity/Vol] 14 U/L 13-56 [facility] CO2 [Moles/Vol] 26.0 mmol/L 21.0-32.0 [facility] Globulin (S) [Mass/Vol] 3.7 g/dL 2.2-4.2 [facility] Urea nitrogen/Creatinine [Mass ratio] 35.6 mg/mg 10-20 [facility] - Hematology and Cell countsOrdered By: Radha Elliott on 02-13-2023 Erythrocyte distribution width (RBC) [Entitic vol] 48.5 fL 35.1-43.9 [facility] Erythrocyte distribution width (RBC) [Ratio] 14.1 % 11.6-14.6 [facility] MCH (RBC) [Entitic mass] 28.3 pg 27.0-32.0 [facility] MCHC Auto (RBC) [Mass/Vol]Or dered By: Radha Elliott on 02-13-2023 MCHC (RBC) [Mass/Vol] 30.3 g/dL 32-36 [facility] No Panel InformationOrdered By: Radha Elliott on 02-13-2023 Estimated GFR (MDRD) Amer 111 mL/min >60 [facility] Comment on above: GFR Calc Estimated GFR (MDRD) Non-Af Amer 92 mL/min >60 [facility] Comment on above: Non- GFR Calc 28.3 pg 27.0-32.0 [facility] 14.1 % 11.6-14.6 [facility] 48.5 fl 35.1-43.9 [facility] 92 mL/min >60 [facility] 111 mL/min >60 [facility] 35.6 RATIO 10- [facility] 3.7 g/dL 2.2-4.2 [facility] 104 U/L 45-117 [facility] 14 U/L 13-56 [facility] 26.0 mmol/L 21.0-32.0 [facility] Platelets bldOrdered By: Kuldip Elliott on 02-13-2023 Platelets (Bld) [#/Vol] 342 10*3/uL 150-450 [facility] Serum or plasma albumin timbo urement (mass/volume)Ordered By: Radha Elliott on 02-13-2023 Albumin [Mass/Vol] 3.0 g/dL 3.2-5.0 [facility] Serum or plasma albumin/glob ulin mass ratioOrdered By: Radha Elliott on 02-13-2023 Albumin/Globulin [Mass ratio] 0.8 {ratio} 0.9-2.4 [facility] Serum or plasma calcium timbo urement (mass/volume)Ordered By: Radha Elliott on 02-13-2023 Calcium [Mass/Vol] 8.9 mg/dL 8.5-10.1 [facility] Serum or plasma creatinine m easurement (mass/volume)Ordered By: Radha Elliott on 02-13-2023 Creatinine [Mass/Vol] 0.67 mg/dL 0.55-1.02 [facility] Comment on above: The validity of the calculated GFR & GFRAA in patients over 70 years has not been determined. Clinical correlation is essential. Serum or plasma urea nitroge n measurement (mass/volume)Ordered By: Radha Elliott on 02-13-2023 Urea nitrogen [Mass/Vol] 24 mg/dL 7-18 [facility] Thin prep Papanicolaou smear with manual screeningOrdered By: Radha Elliott on 02-13-2023 Thin prep Papanicolaou smear with manual screening 14 U/L 15-37 [facility] Thin prep Papanicolaou smear with manual screening 4 5-15 [facility] Throat specimen bacteria kan ntification by cultureOrdered By: Radha Elliott on 02-07-2023 Bacteria identified Cx Nom (Throat) streptococcus isolated. [facility] Basophil percentageOrdered B y: Radha Elliott on 02-06-2023 Basophil percentage 99 mg/dL 74-106 [facility] Basophil percentage 6.4 g/dL 6.4-8.2 [facility] Basophil percentage 0.30 mg/dL 0.20-1.00 [facility] Basophil percentage 140 mmol/L 136-145 [facility] Basophil percentage 3.9 mmol/L 3.5-5.1 [facility] Basophil percentage 108 mmol/L 98-107 [facility] Basophils (Bld) [#/Vol] 8.1 10*3/uL 4.4-11.0 [facility] Bilirubin [Mass/Vol] 0.30 mg/dL 0.20-1.00 [facility] Comment on above: For patients on eltr ombopag therapy, use of Dimension Jackson TBIL is not recommended. Chloride [Moles/Vol] 108 mmol/L 98-107 [facility] Glucose [Mass/Vol] 99 mg/dL 74-106 [facility] Potassium [Moles/Vol] 3.9 mmol/L 3.5-5.1 [facility] Protein [Mass/Vol] 6.4 g/dL 6.4-8.2 [facility] Sodium [Moles/Vol] 140 mmol/L 136-145 [facility] WBC (Bld) [#/Vol] 8.1 10*3/uL 4.4-11.0 [facility] Blood erythrocytes count (nu mber/volume)Ordered By: Radha Elliott on 02-06-2023 RBC (Bld) [#/Vol] 3.60 10*6/uL 4.2-5.4 [facility] Blood hemoglobin measurement (mass/volume)Ordered By: Radha Elliott on 02-06-2023 Hemoglobin (Bld) [Mass/Vol] 10.1 g/dL 12.0-15.0 [facility] Blood platelet mean volumeOr dered By: Radha Elliott on 02-06-2023 Platelet mean volume (Bld) [Entitic vol] 9.0 fL 6.2-12.0 [facility] Determination of erythrocyte mean corpuscular volume (MCV)Ordered By: Radha Elliott on 02-06-2023 MCV (RBC) [Entitic vol] 95.6 fL 81-99 [facility] Hematocrit Auto (Bld) [Volum e fraction]Ordered By: Radha Elliott on 02-06-2023 Hematocrit (Bld) [Volume fraction] 34.4 % 37-47 [facility] - Chemistry and C hemistry - challengeOrdered By: Radha Elliott on 02-06-2023 ALP [Catalytic activity/Vol] 114 U/L 45-117 [facility] ALT [Catalytic activity/Vol] 13 U/L 13-56 [facility] CO2 [Moles/Vol] 28.0 mmol/L 21.0-32.0 [facility] Globulin (S) [Mass/Vol] 3.7 g/dL 2.2-4.2 [facility] Urea nitrogen/Creatinine [Mass ratio] 26.5 mg/mg 10- [facility] - Hematology and Cell countsOrdered By: Radha Elliott on 02-06-2023 Erythrocyte distribution width (RBC) [Entitic vol] 50.0 fL 35.1-43.9 [facility] Erythrocyte distribution width (RBC) [Ratio] 14.2 % 11.6-14.6 [facility] MCH (RBC) [Entitic mass] 28.1 pg 27.0-32.0 [facility] MCHC Auto (RBC) [Mass/Vol]Or dered By: Radha Elliott on 02-06-2023 MCHC (RBC) [Mass/Vol] 29.4 g/dL 32-36 [facility] No Panel InformationOrdered By: Radha Elliott on 02-06-2023 Estimated GFR (MDRD) Amer 104 mL/min >60 [facility] Comment on above: GFR Calc Estimated GFR (MDRD) Non-Af Amer 86 mL/min >60 [facility] Comment on above: Non- GFR Calc 28.1 pg 27.0-32.0 [facility] 14.2 % 11.6-14.6 [facility] 50.0 fl 35.1-43.9 [facility] 86 mL/min >60 [facility] 104 mL/min >60 [facility] 26.5 RATIO 10-20 [facility] 3.7 g/dL 2.2-4.2 [facility] 114 U/L 45-117 [facility] 13 U/L 13-56 [facility] 28.0 mmol/L 21.0-32.0 [facility] Platelets bldOrdered By: Kuldip Elliott on 02-06-2023 Platelets (Bld) [#/Vol] 363 10*3/uL 150-450 [facility] Serum or plasma albumin timbo urement (mass/volume)Ordered By: Radha Elliott on 02-06-2023 Albumin [Mass/Vol] 2.7 g/dL 3.2-5.0 [facility] Serum or plasma albumin/glob ulin mass ratioOrdered By: Radha Elliott on 02-06-2023 Albumin/Globulin [Mass ratio] 0.7 {ratio} 0.9-2.4 [facility] Serum or plasma calcium timbo urement (mass/volume)Ordered By: Radha Elliott on 02-06-2023 Calcium [Mass/Vol] 9.0 mg/dL 8.5-10.1 [facility] Serum or plasma creatinine m easurement (mass/volume)Ordered By: Radha Elliott on 02-06-2023 Creatinine [Mass/Vol] 0.72 mg/dL 0.55-1.02 [facility] Comment on above: The validity of the calculated GFR & GFRAA in patients over 70 years has not been determined. Clinical correlation is essential. Serum or plasma urea nitroge n measurement (mass/volume)Ordered By: Radha Elliott on 02-06-2023 Urea nitrogen [Mass/Vol] 19 mg/dL 7-18 [facility] Thin prep Papanicolaou smear with manual screeningOrdered By: Radha Elliott on 02-06-2023 Thin prep Papanicolaou smear with manual screening 15 U/L 15-37 [facility] Thin prep Papanicolaou smear with manual screening 4 5-15 [facility] Basophil percentageOrdered B y: Radha Elliott on 01-29-2023 Basophil percentage 61 mg/dL 74-106 [facility] Basophil percentage 6.8 g/dL 6.4-8.2 [facility] Basophil percentage 0.40 mg/dL 0.20-1.00 [facility] Basophil percentage 144 mmol/L 136-145 [facility] Basophil percentage 4.0 mmol/L 3.5-5.1 [facility] Basophil percentage 110 mmol/L 98-107 [facility] Basophils (Bld) [#/Vol] 7.1 10*3/uL 4.4-11.0 [facility] Bilirubin [Mass/Vol] 0.40 mg/dL 0.20-1.00 [facility] Comment on above: For patients on eltr ombopag therapy, use of Dimension Jackson TBIL is not recommended. Chloride [Moles/Vol] 110 mmol/L 98-107 [facility] Glucose [Mass/Vol] 61 mg/dL 74-106 [facility] Potassium [Moles/Vol] 4.0 mmol/L 3.5-5.1 [facility] Protein [Mass/Vol] 6.8 g/dL 6.4-8.2 [facility] Sodium [Moles/Vol] 144 mmol/L 136-145 [facility] WBC (Bld) [#/Vol] 7.1 10*3/uL 4.4-11.0 [facility] Blood erythrocytes count (nu mber/volume)Ordered By: Radha Elliott on 01-29-2023 RBC (Bld) [#/Vol] 3.56 10*6/uL 4.2-5.4 [facility] Blood hemoglobin measurement (mass/volume)Ordered By: Radha Elliott on 01-29-2023 Hemoglobin (Bld) [Mass/Vol] 10.4 g/dL 12.0-15.0 [facility] Blood platelet mean volumeOr dered By: Radha Elliott on 01-29-2023 Platelet mean volume (Bld) [Entitic vol] 9.2 fL 6.2-12.0 [facility] Determination of erythrocyte mean corpuscular volume (MCV)Ordered By: Radha Elliott on 01-29-2023 MCV (RBC) [Entitic vol] 98.3 fL 81-99 [facility] Hematocrit Auto (Bld) [Volum e fraction]Ordered By: Radha Elliott on 01-29-2023 Hematocrit (Bld) [Volume fraction] 35.0 % 37-47 [facility] Laboratory - Chemistry and C hemistry - challengeOrdered By: Radha Elliott on 01-29-2023 ALP [Catalytic activity/Vol] 122 U/L 45-117 [facility] ALT [Catalytic activity/Vol] 14 U/L 13-56 [facility] CO2 [Moles/Vol] 28.0 mmol/L 21.0-32.0 [facility] Globulin (S) [Mass/Vol] 3.8 g/dL 2.2-4.2 [facility] Urea nitrogen/Creatinine [Mass ratio] 33.0 mg/mg 10- [facility] Laboratory - Hematology and Cell countsOrdered By: Radha Elliott on 01-29-2023 Erythrocyte distribution width (RBC) [Entitic vol] 53.1 fL 35.1-43.9 [facility] Erythrocyte distribution width (RBC) [Ratio] 14.6 % 11.6-14.6 [facility] MCH (RBC) [Entitic mass] 29.2 pg 27.0-32.0 [facility] MCHC Auto (RBC) [Mass/Vol]Or dered By: Radha Elliott on 01-29-2023 MCHC (RBC) [Mass/Vol] 29.7 g/dL 32-36 [facility] No Panel InformationOrdered By: Radha Elliott on 01-29-2023 Estimated GFR (MDRD) Amer 113 mL/min >60 [facility] Comment on above: GFR Calc Estimated GFR (MDRD) Non-Af Amer 93 mL/min >60 [facility] Comment on above: Non- GFR Calc 29.2 pg 27.0-32.0 [facility] 14.6 % 11.6-14.6 [facility] 53.1 fl 35.1-43.9 [facility] 93 mL/min >60 [facility] 113 mL/min >60 [facility] 33.0 RATIO 10- [facility] 3.8 g/dL 2.2-4.2 [facility] 122 U/L 45-117 [facility] 14 U/L 13-56 [facility] 28.0 mmol/L 21.0-32.0 [facility] Platelets bldOrdered By: Kuldip Elliott on 01-29-2023 Platelets (Bld) [#/Vol] 343 10*3/uL 150-450 [facility] Serum or plasma albumin timbo urement (mass/volume)Ordered By: Radha Elliott on 01-29-2023 Albumin [Mass/Vol] 3.0 g/dL 3.2-5.0 [facility] Serum or plasma albumin/glob ulin mass ratioOrdered By: Radha Elliott on 01-29-2023 Albumin/Globulin [Mass ratio] 0.8 {ratio} 0.9-2.4 [facility] Serum or plasma calcium timbo urement (mass/volume)Ordered By: Radha Elliott on 01-29-2023 Calcium [Mass/Vol] 8.8 mg/dL 8.5-10.1 [facility] Serum or plasma creatinine m easurement (mass/volume)Ordered By: Radha Elliott on 01-29-2023 Creatinine [Mass/Vol] 0.67 mg/dL 0.55-1.02 [facility] Comment on above: The validity of the calculated GFR & GFRAA in patients over 70 years has not been determined. Clinical correlation is essential. Serum or plasma urea nitroge n measurement (mass/volume)Ordered By: Radha Elliott on 01-29-2023 Urea nitrogen [Mass/Vol] 22 mg/dL 7-18 [facility] Thin prep Papanicolaou smear with manual screeningOrdered By: Radha Elliott on 01-29-2023 Thin prep Papanicolaou smear with manual screening 13 U/L 15-37 [facility] Thin prep Papanicolaou smear with manual screening 6 5-15 [facility] 36on 01-22-2023 36 Called Omar metcalf ([phone]) and spoke with Paula, patient's nurse, to pass along updated orders per Ty. Imaging due: 03/29/2023 Normal [facility] Basophil percentageOrdered B y: Radha Elliott on 01-22-2023 Basophil percentage 58 mg/dL 74-106 [facility] Basophil percentage 6.8 g/dL 6.4-8.2 [facility] Basophil percentage 0.50 mg/dL 0.20-1.00 [facility] Basophil percentage 139 mmol/L 136-145 [facility] Basophil percentage 3.9 mmol/L 3.5-5.1 [facility] Basophil percentage 106 mmol/L 98-107 [facility] Basophils (Bld) [#/Vol] 8.1 10*3/uL 4.4-11.0 [facility] Bilirubin [Mass/Vol] 0.50 mg/dL 0.20-1.00 [facility] Comment on above: For patients on eltr ombopag therapy, use of Dimension Jackson TBIL is not recommended. Chloride [Moles/Vol] 106 mmol/L 98-107 [facility] Glucose [Mass/Vol] 58 mg/dL 74-106 [facility] Potassium [Moles/Vol] 3.9 mmol/L 3.5-5.1 [facility] Protein [Mass/Vol] 6.8 g/dL 6.4-8.2 [facility] Sodium [Moles/Vol] 139 mmol/L 136-145 [facility] WBC (Bld) [#/Vol] 8.1 10*3/uL 4.4-11.0 [facility] Blood erythrocytes count (nu mber/volume)Ordered By: Rdaha Elliott on 01-22-2023 RBC (Bld) [#/Vol] 3.62 10*6/uL 4.2-5.4 [facility] Blood hemoglobin measurement (mass/volume)Ordered By: Radha Elliott on 01-22-2023 Hemoglobin (Bld) [Mass/Vol] 10.4 g/dL 12.0-15.0 [facility] Blood platelet mean volumeOr dered By: Radha Elliott on 01-22-2023 Platelet mean volume (Bld) [Entitic vol] 9.3 fL 6.2-12.0 [facility] Determination of erythrocyte mean corpuscular volume (MCV)Ordered By: Radha Elliott on 01-22-2023 MCV (RBC) [Entitic vol] 98.9 fL 81-99 [facility] Hematocrit Auto (Bld) [Volum e fraction]Ordered By: Radha Elliott on 01-22-2023 Hematocrit (Bld) [Volume fraction] 35.8 % 37-47 [facility] Laboratory - Chemistry and C hemistry - challengeOrdered By: Radha Elliott on 01-22-2023 ALP [Catalytic activity/Vol] 147 U/L 45-117 [facility] ALT [Catalytic activity/Vol] 15 U/L 13-56 [facility] CO2 [Moles/Vol] 28.0 mmol/L 21.0-32.0 [facility] Globulin (S) [Mass/Vol] 3.8 g/dL 2.2-4.2 [facility] Urea nitrogen/Creatinine [Mass ratio] 29.2 mg/mg 10-20 [facility] Laboratory - Hematology and Cell countsOrdered By: Radha Elliott on 01-22-2023 Erythrocyte distribution width (RBC) [Entitic vol] 55.4 fL 35.1-43.9 [facility] Erythrocyte distribution width (RBC) [Ratio] 15.3 % 11.6-14.6 [facility] MCH (RBC) [Entitic mass] 28.7 pg 27.0-32.0 [facility] MCHC Auto (RBC) [Mass/Vol]Or dered By: Radha Elliott on 01-22-2023 MCHC (RBC) [Mass/Vol] 29.1 g/dL 32-36 [facility] No Panel InformationOrdered By: Radha Elliott on 01-22-2023 Estimated GFR (MDRD) Amer 104 mL/min >60 [facility] Comment on above: GFR Calc Estimated GFR (MDRD) Non-Af Amer 86 mL/min >60 [facility] Comment on above: Non- GFR Calc 28.7 pg 27.0-32.0 [facility] 15.3 % 11.6-14.6 [facility] 55.4 fl 35.1-43.9 [facility] 86 mL/min >60 [facility] 104 mL/min >60 [facility] 29.2 RATIO 10-20 [facility] 3.8 g/dL 2.2-4.2 [facility] 147 U/L 45-117 [facility] 15 U/L 13-56 [facility] 28.0 mmol/L 21.0-32.0 [facility] Platelets bldOrdered By: Kulidp Elliott on 01-22-2023 Platelets (Bld) [#/Vol] 343 10*3/uL 150-450 [facility] Serum or plasma albumin timbo urement (mass/volume)Ordered By: Radha Elliott on 01-22-2023 Albumin [Mass/Vol] 3.0 g/dL 3.2-5.0 [facility] Serum or plasma albumin/glob ulin mass ratioOrdered By: Radha Elliott on 01-22-2023 Albumin/Globulin [Mass ratio] 0.8 {ratio} 0.9-2.4 [facility] Serum or plasma calcium timbo urement (mass/volume)Ordered By: Radha Elliott on 01-22-2023 Calcium [Mass/Vol] 8.8 mg/dL 8.5-10.1 [facility] Serum or plasma creatinine m easurement (mass/volume)Ordered By: Radha Elliott on 01-22-2023 Creatinine [Mass/Vol] 0.72 mg/dL 0.55-1.02 [facility] Comment on above: The validity of the calculated GFR & GFRAA in patients over 70 years has not been determined. Clinical correlation is essential. Serum or plasma urea nitroge n measurement (mass/volume)Ordered By: Radha Elliott on 01-22-2023 Urea nitrogen [Mass/Vol] 21 mg/dL 7-18 [facility] Thin prep Papanicolaou smear with manual screeningOrdered By: Radha Elliott on 01-22-2023 Thin prep Papanicolaou smear with manual screening 16 U/L 15-37 [facility] Thin prep Papanicolaou smear with manual screening 5 5-15 [facility] 36on 01-19-2023 36 Films reviewed. Cont inue WBAT RLE. Continue hip and knee ROM. Will need repeat 2v right femur at the 3 month post op john. Normal [facility] 36 Xrays of right femur taken on 01/10/23: Normal [facility] Basophil percentageOrdered B y: Radha Elliott on 01-15-2023 Basophil percentage 80 mg/dL 74-106 [facility] Basophil percentage 6.9 g/dL 6.4-8.2 [facility] Basophil percentage 0.50 mg/dL 0.20-1.00 [facility] Basophil percentage 139 mmol/L 136-145 [facility] Basophil percentage 4.0 mmol/L 3.5-5.1 [facility] Basophil percentage 106 mmol/L 98-107 [facility] Basophils (Bld) [#/Vol] 8.3 10*3/uL 4.4-11.0 [facility] Bilirubin [Mass/Vol] 0.50 mg/dL 0.20-1.00 [facility] Comment on above: For patients on eltr ombopag therapy, use of Dimension [place] TBIL is not recommended. Chloride [Moles/Vol] 106 mmol/L 98-107 [facility] Glucose [Mass/Vol] 80 mg/dL 74-106 [facility] Potassium [Moles/Vol] 4.0 mmol/L 3.5-5.1 [facility] Protein [Mass/Vol] 6.9 g/dL 6.4-8.2 [facility] Sodium [Moles/Vol] 139 mmol/L 136-145 [facility] WBC (Bld) [#/Vol] 8.3 10*3/uL 4.4-11.0 [facility] Blood erythrocytes count (nu mber/volume)Ordered By: Radha Elliott on 01-15-2023 RBC (Bld) [#/Vol] 3.30 10*6/uL 4.2-5.4 [facility] Blood hemoglobin measurement (mass/volume)Ordered By: Radha Elliott on 01-15-2023 Hemoglobin (Bld) [Mass/Vol] 9.7 g/dL 12.0-15.0 [facility] Blood platelet mean volumeOr dered By: Radha Elliott on 01-15-2023 Platelet mean volume (Bld) [Entitic vol] 8.9 fL 6.2-12.0 [facility] Determination of erythrocyte mean corpuscular volume (MCV)Ordered By: Radha Elliott on 01-15-2023 MCV (RBC) [Entitic vol] 99.1 fL 81-99 [facility] Hematocrit Auto (Bld) [Volum e fraction]Ordered By: Radha Elliott on 01-15-2023 Hematocrit (Bld) [Volume fraction] 32.7 % 37-47 [facility] Laboratory - Chemistry and C hemistry - challengeOrdered By: Radha Elliott on 01-15-2023 ALP [Catalytic activity/Vol] 191 U/L 45-117 [facility] ALT [Catalytic activity/Vol] 16 U/L 13-56 [facility] CO2 [Moles/Vol] 27.0 mmol/L 21.0-32.0 [facility] Globulin (S) [Mass/Vol] 4.0 g/dL 2.2-4.2 [facility] Urea nitrogen/Creatinine [Mass ratio] 32.8 mg/mg 10-20 [facility] Laboratory - Hematology and Cell countsOrdered By: Radhakristen Elliott on 01-15-2023 Erythrocyte distribution width (RBC) [Entitic vol] 60.5 fL 35.1-43.9 [facility] Erythrocyte distribution width (RBC) [Ratio] 16.6 % 11.6-14.6 [facility] MCH (RBC) [Entitic mass] 29.4 pg 27.0-32.0 [facility] MCHC Auto (RBC) [Mass/Vol]Or dered By: Radha Elliott on 01-15-2023 MCHC (RBC) [Mass/Vol] 29.7 g/dL 32-36 [facility] No Panel InformationOrdered By: Radha Elliott on 01-15-2023 Estimated GFR (MDRD) Amer 112 mL/min >60 [facility] Comment on above: GFR Calc Estimated GFR (MDRD) Non-Af Amer 93 mL/min >60 [facility] Comment on above: Non- GFR Calc Vitamin D 25-Hydroxy 82.0 ng/mL [facility] Comment on above: Vitamin D 25(OH) Sta tus Range Deficiency <20 ng/mL (50nmol/L) Insufficiency 20 - 30 ng/mL (50 - 75 nmol/L) Sufficiency 30 - 100 ng/mL (75 - 250 nmol/L) Toxicity >100 ng/mL (>250 nmol/L) 29.4 pg 27.0-32.0 [facility] 16.6 % 11.6-14.6 [facility] 60.5 fl 35.1-43.9 [facility] 93 mL/min >60 [facility] 112 mL/min >60 [facility] 32.8 RATIO 10-20 [facility] 4.0 g/dL 2.2-4.2 [facility] 191 U/L 45-117 [facility] 16 U/L 13-56 [facility] 27.0 mmol/L 21.0-32.0 [facility] 82.0 ng/mL [facility] Platelets bldOrdered By: Kuldip Elliott on 01-15-2023 Platelets (Bld) [#/Vol] 494 10*3/uL 150-450 [facility] Serum or plasma albumin timbo urement (mass/volume)Ordered By: Radha Elliott on 01-15-2023 Albumin [Mass/Vol] 2.9 g/dL 3.2-5.0 [facility] Serum or plasma albumin/glob ulin mass ratioOrdered By: Radha Elliott on 01-15-2023 Albumin/Globulin [Mass ratio] 0.7 {ratio} 0.9-2.4 [facility] Serum or plasma calcium timbo urement (mass/volume)Ordered By: Radha Elliott on 01-15-2023 Calcium [Mass/Vol] 8.6 mg/dL 8.5-10.1 [facility] Serum or plasma creatinine m easurement (mass/volume)Ordered By: Radha Elliott on 01-15-2023 Creatinine [Mass/Vol] 0.67 mg/dL 0.55-1.02 [facility] Comment on above: The validity of the calculated GFR & GFRAA in patients over 70 years has not been determined. Clinical correlation is essential. Serum or plasma urea nitroge n measurement (mass/volume)Ordered By: Radha Elliott on 01-15-2023 Urea nitrogen [Mass/Vol] 22 mg/dL 7-18 [facility] Thin prep Papanicolaou smear with manual screeningOrdered By: Radha Elliott on 01-15-2023 Thin prep Papanicolaou smear with manual screening 17 U/L 15-37 [facility] Thin prep Papanicolaou smear with manual screening 6 5-15 [facility] CARECOORDon 01-13-2023 CARECOORD Patient Choice Patient Name: DONNA MARSH Date of : 1955 [facility] Absolute lymphocyte countOrd ered By: Radha Elliott on 01-10-2023 Lymphocytes Auto (Unsp spec) [#/Vol] 3.08 10*3/uL 0.83-4.51 [facility] Bacteria identified Cx Nom ( U)Ordered By: Radha Elliott on 01-10-2023 Culture, urine Escherichia coli [facility] Basophil percentageOrdered B y: Radha Elliott on 01-10-2023 Basophil percentage 0 SEEN /hpf 0-5 [facility] Basophils (Bld) [#/Vol] 11.6 10*3/uL 4.4-11.0 [facility] Basophils (Bld) [#/Vol] 7.3 10*3/uL 2.0-7.7 [facility] Basophils/100 WBC (Bld) 0.4 % 0-1 [facility] Basophils/100 WBC (Bld) 62.8 % 47-70 [facility] Basophils/100 WBC (Bld) 3.4 % 0-5 [facility] Eosinophils/100 WBC (Bld) 3.4 % 0-5 [facility] Neutrophils (Bld) [#/Vol] 7.3 10*3/uL 2.0-7.7 [facility] Neutrophils/100 WBC (Bld) 62.8 % 47-70 [facility] WBC (Bld) [#/Vol] 11.6 10*3/uL 4.4-11.0 [facility] Bilirubin Test strip Ql (U)O rdered By: Radha Elliott on 01-10-2023 Bilirubin Ql (U) Negative Negative [facility] Blood erythrocytes count (nu mber/volume)Ordered By: Radha Elliott on 01-10-2023 RBC (Bld) [#/Vol] 3.22 10*6/uL 4.2-5.4 [facility] Blood hemoglobin measurement (mass/volume)Ordered By: Radha Elliott on 01-10-2023 Hemoglobin (Bld) [Mass/Vol] 9.4 g/dL 12.0-15.0 [facility] Blood lymphocytes/100 leukoc ytesOrdered By: Radha Elliott on 01-10-2023 Lymphocytes/100 WBC (Bld) 26.5 % 19-41 [facility] Blood manual differential co mment interpretation (narrative result)Ordered By: Radha Elliott on 01-10-2023 Manual differential comment Minesh (Bld) [Interp] SCANNED [facility] Blood monocytes/100 leukocyt esOrdered By: Radha Elliott on 01-10-2023 Monocytes/100 WBC (Bld) 6.4 % 0-10 [facility] Blood platelet mean volumeOr dered By: Radha Elliott on 01-10-2023 Platelet mean volume (Bld) [Entitic vol] 9.0 fL 6.2-12.0 [facility] Culture, urineOrdered By: Jayy Elliott on 01-10-2023 Bacteria identified Cx Nom (U) Escherichia coli [facility] Determination of erythrocyte mean corpuscular volume (MCV)Ordered By: Radha Elliott on 01-10-2023 MCV (RBC) [Entitic vol] 100.9 fL 81-99 [facility] Hematocrit Auto (Bld) [Volum e fraction]Ordered By: Radha Elliott on 01-10-2023 Hematocrit (Bld) [Volume fraction] 32.5 % 37-47 [facility] Ketones Test strip Ql (U)Ord ered By: Radha Elliott on 01-10-2023 Ketones Ql (U) Negative Negative [facility] Laboratory - Hematology and Cell countsOrdered By: Radha Elliott on 01-10-2023 Anisocytosis Ql (Bld) 2+ [facility] Erythrocyte distribution width (RBC) [Entitic vol] 65.1 fL 35.1-43.9 [facility] Erythrocyte distribution width (RBC) [Ratio] 17.7 % 11.6-14.6 [facility] Immature granulocytes/100 WBC (Bld) 0.500 % 0.0-0.9 [facility] Comment on above: IG% - Immature Granu locytes (promyelocytes, myelocytes and metamyelocytes) > 1% indicates that a LEFT SHIFT is Present. MCH (RBC) [Entitic mass] 29.2 pg 27.0-32.0 [facility] Nucleated RBC/100 WBC (Bld) [Ratio] 0 % 0-5 [facility] MCHC Auto (RBC) [Mass/Vol]Or dered By: Radha Elliott on 01-10-2023 MCHC (RBC) [Mass/Vol] 28.9 g/dL 32-36 [facility] Macrocytes detectionOrdered By: Radha Elliott on 01-10-2023 Macrocytes Ql (Bld) 1+ [facility] Mucus LM Ql (Urine sed)Order ed By: Radha Elliott on 01-10-2023 Mucus Ql (Urine sed) 1+ /hpf [facility] Nitrite Test strip Ql (U)Ord ered By: Radha Elliott on 01-10-2023 Nitrite Ql (U) Negative Negative [facility] No Panel InformationOrdered By: Radha Elliott on 01-10-2023 29.2 pg 27.0-32.0 [facility] 17.7 % 11.6-14.6 [facility] 65.1 fl 35.1-43.9 [facility] 0.500 % 0.0-0.9 [facility] 0 % 0-5 [facility] 2+ [facility] Platelets bldOrdered By: Kuldip Elliott on 01-10-2023 Platelets (Bld) [#/Vol] 680 10*3/uL 150-450 [facility] Protein Test strip Ql (U)Ord ered By: Radha Elliott on 01-10-2023 Protein Ql (U) Negative Negative [facility] Squamous epithelial cells de tection in urine sediment by light microscopyOrdered By: Radha Elliott on 01-10-2023 Epithelial cells.squamous LM Ql (Urine sed) 0-5 SEEN /hpf 5-10 [facility] Thin prep Papanicolaou smear with manual screeningOrdered By: Radha Elliott on 01-10-2023 Thin prep Papanicolaou smear with manual screening 1+ [facility] Urine blood detectionOrdered By: Radha Elliott on 01-10-2023 RBC Ql (U) Negative Negative [facility] RBC Ql (U) 0-5 SEEN /hpf 0-5 [facility] Urine clarityOrdered By: Kuldip Elliott on 01-10-2023 Clarity (U) Clear Clear [facility] Urine color determinationOrd ered By: Radha Elliott on 01-10-2023 Color (U) Yellow Yellow [facility] Urine glucose detectionOrder ed By: Radha Elliott on 01-10-2023 Glucose Ql (U) Normal mg/dl Normal [facility] Urine leukocyte esterase det ection by dipstickOrdered By: Radha Elliott on 01-10-2023 Leukocyte esterase Test strip Ql (U) Negative Negative [facility] Urine pHOrdered By: Radha oquendo on 01-10-2023 pH (U) 6.0 [pH] 5.0 - 8.0 [facility] Urine sediment bacteria coun t by microscopy (number/high power field)Ordered By: Radha Elliott on 01-10-2023 Bacteria LM.HPF (Urine sed) [#/Area] 1 /[HPF] None Seen [facility] Urine specific gravity measu rementOrdered By: Radha Elliott on 01-10-2023 Specific gravity (U) [Rel density] 1.010 1.002-1.030 [facility] Urobilinogen Auto test strip Ql (U)Ordered By: Radha Elliott on 01-10-2023 Urobilinogen Ql (U) Normal mg/dl Normal [facility] Absolute lymphocyte countOrd ered By: Radha Elliott on 01-08-2023 Lymphocytes Auto (Unsp spec) [#/Vol] 3.88 10*3/uL 0.83-4.51 [facility] Basophil percentageOrdered B y: Radha Elliott on 01-08-2023 Basophil percentage 97 mg/dL 74-106 [facility] Basophil percentage 6.9 g/dL 6.4-8.2 [facility] Basophil percentage 0.50 mg/dL 0.20-1.00 [facility] Basophil percentage 138 mmol/L 136-145 [facility] Basophil percentage 4.6 mmol/L 3.5-5.1 [facility] Basophil percentage 108 mmol/L 98-107 [facility] Basophils (Bld) [#/Vol] 12.9 10*3/uL 4.4-11.0 [facility] Basophils (Bld) [#/Vol] 7.7 10*3/uL 2.0-7.7 [facility] Basophils/100 WBC (Bld) 0.4 % 0-1 [facility] Basophils/100 WBC (Bld) 59.7 % 47-70 [facility] Basophils/100 WBC (Bld) 3.3 % 0-5 [facility] Bilirubin [Mass/Vol] 0.50 mg/dL 0.20-1.00 [facility] Comment on above: For patients on eltr ombopag therapy, use of Dimension Jackson TBIL is not recommended. Chloride [Moles/Vol] 108 mmol/L 98-107 [facility] Eosinophils/100 WBC (Bld) 3.3 % 0-5 [facility] Glucose [Mass/Vol] 97 mg/dL 74-106 [facility] Neutrophils (Bld) [#/Vol] 7.7 10*3/uL 2.0-7.7 [facility] Neutrophils/100 WBC (Bld) 59.7 % 47-70 [facility] Potassium [Moles/Vol] 4.6 mmol/L 3.5-5.1 [facility] Protein [Mass/Vol] 6.9 g/dL 6.4-8.2 [facility] Sodium [Moles/Vol] 138 mmol/L 136-145 [facility] WBC (Bld) [#/Vol] 12.9 10*3/uL 4.4-11.0 [facility] Blood erythrocytes count (nu mber/volume)Ordered By: Radha Elliott on 01-08-2023 RBC (Bld) [#/Vol] 2.96 10*6/uL 4.2-5.4 [facility] Blood hemoglobin measurement (mass/volume)Ordered By: Radha Elliott on 01-08-2023 Hemoglobin (Bld) [Mass/Vol] 8.7 g/dL 12.0-15.0 [facility] Blood lymphocytes/100 leukoc ytesOrdered By: Radha Elliott on 01-08-2023 Lymphocytes/100 WBC (Bld) 30.1 % 19-41 [facility] Blood monocytes/100 leukocyt esOrdered By: Radha Elliott on 01-08-2023 Monocytes/100 WBC (Bld) 5.8 % 0-10 [facility] Blood platelet mean volumeOr dered By: Radha Elliott on 01-08-2023 Platelet mean volume (Bld) [Entitic vol] 9.1 fL 6.2-12.0 [facility] Determination of erythrocyte mean corpuscular volume (MCV)Ordered By: Radha Elliott on 01-08-2023 MCV (RBC) [Entitic vol] 100.3 fL 81-99 [facility] Hematocrit Auto (Bld) [Volum e fraction]Ordered By: Radha Elliott on 01-08-2023 Hematocrit (Bld) [Volume fraction] 29.7 % 37-47 [facility] Laboratory - Chemistry and C hemistry - challengeOrdered By: Radha Elliott on 01-08-2023 ALP [Catalytic activity/Vol] 177 U/L 45-117 [facility] ALT [Catalytic activity/Vol] 27 U/L 13-56 [facility] CO2 [Moles/Vol] 25.0 mmol/L 21.0-32.0 [facility] Globulin (S) [Mass/Vol] 4.1 g/dL 2.2-4.2 [facility] Urea nitrogen/Creatinine [Mass ratio] 32.3 mg/mg 10-20 [facility] Laboratory - Hematology and Cell countsOrdered By: Radha Elliott on 01-08-2023 Anisocytosis Ql (Bld) 1+ [facility] Erythrocyte distribution width (RBC) [Entitic vol] 66.4 fL 35.1-43.9 [facility] Erythrocyte distribution width (RBC) [Ratio] 18.2 % 11.6-14.6 [facility] Immature granulocytes/100 WBC (Bld) 0.700 % 0.0-0.9 [facility] Comment on above: IG% - Immature Granu locytes (promyelocytes, myelocytes and metamyelocytes) > 1% indicates that a LEFT SHIFT is Present. MCH (RBC) [Entitic mass] 29.4 pg 27.0-32.0 [facility] Nucleated RBC/100 WBC (Bld) [Ratio] 0 % 0-5 [facility] MCHC Auto (RBC) [Mass/Vol]Or dered By: Radha Elliott on 01-08-2023 MCHC (RBC) [Mass/Vol] 29.3 g/dL 32-36 [facility] No Panel InformationOrdered By: Radha Elliott on 01-08-2023 Estimated GFR (MDRD) Amer 116 mL/min >60 [facility] Comment on above: GFR Calc Estimated GFR (MDRD) Non-Af Amer 96 mL/min >60 [facility] Comment on above: Non- GFR Calc 29.4 pg 27.0-32.0 [facility] 18.2 % 11.6-14.6 [facility] 66.4 fl 35.1-43.9 [facility] 0.700 % 0.0-0.9 [facility] 0 % 0-5 [facility] 1+ [facility] 96 mL/min >60 [facility] 116 mL/min >60 [facility] 32.3 RATIO 10-20 [facility] 4.1 g/dL 2.2-4.2 [facility] 177 U/L 45-117 [facility] 27 U/L 13-56 [facility] 25.0 mmol/L 21.0-32.0 [facility] Platelets bldOrdered By: Kuldip Elliott on 01-08-2023 Platelets (Bld) [#/Vol] 718 10*3/uL 150-450 [facility] Serum or plasma albumin timbo urement (mass/volume)Ordered By: Radah Elliott on 01-08-2023 Albumin [Mass/Vol] 2.8 g/dL 3.2-5.0 [facility] Serum or plasma albumin/glob ulin mass ratioOrdered By: Radhakristen Elliott on 01-08-2023 Albumin/Globulin [Mass ratio] 0.7 {ratio} 0.9-2.4 [facility] Serum or plasma calcium timbo urement (mass/volume)Ordered By: Radhakristen Elliott on 01-08-2023 Calcium [Mass/Vol] 8.5 mg/dL 8.5-10.1 [facility] Serum or plasma creatinine m easurement (mass/volume)Ordered By: Radhakristen Elliott on 01-08-2023 Creatinine [Mass/Vol] 0.65 mg/dL 0.55-1.02 [facility] Comment on above: The validity of the calculated GFR & GFRAA in patients over 70 years has not been determined. Clinical correlation is essential. Serum or plasma urea nitroge n measurement (mass/volume)Ordered By: Radha Elliott on 01-08-2023 Urea nitrogen [Mass/Vol] 21 mg/dL 7-18 [facility] Thin prep Papanicolaou smear with manual screeningOrdered By: Radhakristen Elliott on 01-08-2023 Thin prep Papanicolaou smear with manual screening 29 U/L 15-37 [facility] Thin prep Papanicolaou smear with manual screening 5 5-15 [facility] Absolute lymphocyte countOrd ered By: Radha Elliott on 01-05-2023 Lymphocytes Auto (Unsp spec) [#/Vol] 3.28 10*3/uL 0.83-4.51 [facility] Basophil percentageOrdered B y: Radha Elliott on 01-05-2023 Basophils (Bld) [#/Vol] 11.5 10*3/uL 4.4-11.0 [facility] Basophils (Bld) [#/Vol] 6.9 10*3/uL 2.0-7.7 [facility] Basophils/100 WBC (Bld) 0.3 % 0-1 [facility] Basophils/100 WBC (Bld) 60.0 % 47-70 [facility] Basophils/100 WBC (Bld) 3.6 % 0-5 [facility] Eosinophils/100 WBC (Bld) 3.6 % 0-5 [facility] Neutrophils (Bld) [#/Vol] 6.9 10*3/uL 2.0-7.7 [facility] Neutrophils/100 WBC (Bld) 60.0 % 47-70 [facility] WBC (Bld) [#/Vol] 11.5 10*3/uL 4.4-11.0 [facility] Blood erythrocytes count (nu mber/volume)Ordered By: Radha Elliott on 01-05-2023 RBC (Bld) [#/Vol] 2.82 10*6/uL 4.2-5.4 [facility] Blood hemoglobin measurement (mass/volume)Ordered By: Radha Elliott on 01-05-2023 Hemoglobin (Bld) [Mass/Vol] 8.4 g/dL 12.0-15.0 [facility] Blood lymphocytes/100 leukoc ytesOrdered By: Radha Elliott on 01-05-2023 Lymphocytes/100 WBC (Bld) 28.4 % 19-41 [facility] Blood monocytes/100 leukocyt esOrdered By: Radha Elliott on 01-05-2023 Monocytes/100 WBC (Bld) 6.8 % 0-10 [facility] Blood platelet mean volumeOr dered By: Radha Elliott on 01-05-2023 Platelet mean volume (Bld) [Entitic vol] 9.2 fL 6.2-12.0 [facility] Determination of erythrocyte mean corpuscular volume (MCV)Ordered By: Radha Elliott on 01-05-2023 MCV (RBC) [Entitic vol] 98.9 fL 81-99 [facility] Hematocrit Auto (Bld) [Volum e fraction]Ordered By: Radha Elliott on 01-05-2023 Hematocrit (Bld) [Volume fraction] 27.9 % 37-47 [facility] Laboratory - Hematology and Cell countsOrdered By: Radha Elliott on 01-05-2023 Erythrocyte distribution width (RBC) [Entitic vol] 60.5 fL 35.1-43.9 [facility] Erythrocyte distribution width (RBC) [Ratio] 17.8 % 11.6-14.6 [facility] Immature granulocytes/100 WBC (Bld) 0.900 % 0.0-0.9 [facility] Comment on above: IG% - Immature Granu locytes (promyelocytes, myelocytes and metamyelocytes) > 1% indicates that a LEFT SHIFT is Present. MCH (RBC) [Entitic mass] 29.8 pg 27.0-32.0 [facility] Nucleated RBC/100 WBC (Bld) [Ratio] 0 % 0-5 [facility] MCHC Auto (RBC) [Mass/Vol]Or dered By: Radha Elliott on 01-05-2023 MCHC (RBC) [Mass/Vol] 30.1 g/dL 32-36 [facility] No Panel InformationOrdered By: Radha Elliott on 01-05-2023 29.8 pg 27.0-32.0 [facility] 17.8 % 11.6-14.6 [facility] 60.5 fl 35.1-43.9 [facility] 0.900 % 0.0-0.9 [facility] 0 % 0-5 [facility] Platelets bldOrdered By: Kuldip Elliott on 01-05-2023 Platelets (Bld) [#/Vol] 554 10*3/uL 150-450 [facility] 36on 01-03-2023 36 Called Omar metcalf ([phone]) and spoke with Vanesa, patient's nurse. Passed along orders per Ty. She was agreeable with this plan of not bringing the patient into the office unless specifically requested. Imaging due: 01/10/23 Normal [facility] 36on 01-02-2023 36 Normal [facility] 36 Normal [facility] Absolute lymphocyte countOrd ered By: Radha Elliott on 01-02-2023 Lymphocytes Auto (Unsp spec) [#/Vol] 3.79 10*3/uL 0.83-4.51 [facility] Basophil percentageOrdered B y: Radha Elloitt on 01-02-2023 Basophil percentage 168 mg/dL 74-106 [facility] Basophil percentage 142 mmol/L 136-145 [facility] Basophil percentage 4.5 mmol/L 3.5-5.1 [facility] Basophil percentage 111 mmol/L 98-107 [facility] Basophils (Bld) [#/Vol] 11.1 10*3/uL 4.4-11.0 [facility] Basophils (Bld) [#/Vol] 5.7 10*3/uL 2.0-7.7 [facility] Basophils/100 WBC (Bld) 0.3 % 0-1 [facility] Basophils/100 WBC (Bld) 51.5 % 47-70 [facility] Basophils/100 WBC (Bld) 4.2 % 0-5 [facility] Chloride [Moles/Vol] 111 mmol/L 98-107 [facility] Eosinophils/100 WBC (Bld) 4.2 % 0-5 [facility] Glucose [Mass/Vol] 168 mg/dL 74-106 [facility] Comment on above: Fasting Glucose resu lt greater than or equal to 126 mg/dL suggests DIABETES MELLITUS per A.D.A. criteria. Neutrophils (Bld) [#/Vol] 5.7 10*3/uL 2.0-7.7 [facility] Neutrophils/100 WBC (Bld) 51.5 % 47-70 [facility] Potassium [Moles/Vol] 4.5 mmol/L 3.5-5.1 [facility] Sodium [Moles/Vol] 142 mmol/L 136-145 [facility] WBC (Bld) [#/Vol] 11.1 10*3/uL 4.4-11.0 [facility] Blood erythrocytes count (nu mber/volume)Ordered By: Radha Elliott on 01-02-2023 RBC (Bld) [#/Vol] 2.71 10*6/uL 4.2-5.4 [facility] Blood hemoglobin measurement (mass/volume)Ordered By: Radha Elliott on 01-02-2023 Hemoglobin (Bld) [Mass/Vol] 7.9 g/dL 12.0-15.0 [facility] Blood lymphocytes/100 leukoc ytesOrdered By: Radha Elliott on 01-02-2023 Lymphocytes/100 WBC (Bld) 34.0 % 19-41 [facility] Blood monocytes/100 leukocyt esOrdered By: Radha Elliott on 01-02-2023 Monocytes/100 WBC (Bld) 8.3 % 0-10 [facility] Blood platelet mean volumeOr dered By: Radha Elliott on 01-02-2023 Platelet mean volume (Bld) [Entitic vol] 9.6 fL 6.2-12.0 [facility] CARECOORDon 01-02-2023 [facility] Patient Choice Patient Name: DONNA MARSH Date of : 1955 [facility] Determination of erythrocyte mean corpuscular volume (MCV)Ordered By: Radha Elliott on 01-02-2023 MCV (RBC) [Entitic vol] 97.4 fL 81-99 [facility] Hematocrit Auto (Bld) [Volum e fraction]Ordered By: Radha Elliott on 01-02-2023 Hematocrit (Bld) [Volume fraction] 26.4 % 37-47 [facility] Laboratory - Chemistry and C hemistry - challengeOrdered By: Radha Elliott on 01-02-2023 CO2 [Moles/Vol] 27.0 mmol/L 21.0-32.0 [facility] Cobalamin (Vitamin B12) [Mass/Vol] 484 pg/mL 211-911 [facility] Magnesium [Mass/Vol] 1.8 mg/dL 1.6-2.6 [facility] Urea nitrogen/Creatinine [Mass ratio] 41.7 mg/mg 10-20 [facility] Laboratory - Hematology and Cell countsOrdered By: Radha Elliott on 01-02-2023 Erythrocyte distribution width (RBC) [Entitic vol] 55.4 fL 35.1-43.9 [facility] Erythrocyte distribution width (RBC) [Ratio] 16.7 % 11.6-14.6 [facility] Immature granulocytes/100 WBC (Bld) 1.700 % 0.0-0.9 [facility] Comment on above: IG% - Immature Granu locytes (promyelocytes, myelocytes and metamyelocytes) > 1% indicates that a LEFT SHIFT is Present. MCH (RBC) [Entitic mass] 29.2 pg 27.0-32.0 [facility] Nucleated RBC/100 WBC (Bld) [Ratio] 0 % 0-5 [facility] MCHC Auto (RBC) [Mass/Vol]Or dered By: Radha Elliott on 01-02-2023 MCHC (RBC) [Mass/Vol] 29.9 g/dL 32-36 [facility] No Panel InformationOrdered By: Radha Elliott on 01-02-2023 Estimated GFR (MDRD) Amer 112 mL/min >60 [facility] Comment on above: GFR Calc Estimated GFR (MDRD) Non-Af Amer 93 mL/min >60 [facility] Comment on above: Non- GFR Calc Vitamin D 25-Hydroxy 98.7 ng/mL [facility] Comment on above: Vitamin D 25(OH) Sta tus Range Deficiency <20 ng/mL (50nmol/L) Insufficiency 20 - 30 ng/mL (50 - 75 nmol/L) Sufficiency 30 - 100 ng/mL (75 - 250 nmol/L) Toxicity >100 ng/mL (>250 nmol/L) 29.2 pg 27.0-32.0 [facility] 16.7 % 11.6-14.6 [facility] 55.4 fl 35.1-43.9 [facility] 1.700 % 0.0-0.9 [facility] 0 % 0-5 [facility] 93 mL/min >60 [facility] 112 mL/min >60 [facility] 41.7 RATIO 10-20 [facility] 1.8 mg/dL 1.6-2.6 [facility] 27.0 mmol/L 21.0-32.0 [facility] 484 pg/mL 211-911 [facility] 98.7 ng/mL [facility] Platelets bldOrdered By: Kuldip Elliott on 01-02-2023 Platelets (Bld) [#/Vol] 464 10*3/uL 150-450 [facility] Serum or plasma calcium timbo urement (mass/volume)Ordered By: Radha Elliott on 01-02-2023 Calcium [Mass/Vol] 8.3 mg/dL 8.5-10.1 [facility] Serum or plasma creatinine m easurement (mass/volume)Ordered By: Radha Elliott on 01-02-2023 Creatinine [Mass/Vol] 0.67 mg/dL 0.55-1.02 [facility] Comment on above: The validity of the calculated GFR & GFRAA in patients over 70 years has not been determined. Clinical correlation is essential. Serum or plasma urea nitroge n measurement (mass/volume)Ordered By: Radha Elliott on 01-02-2023 Urea nitrogen [Mass/Vol] 28 mg/dL - [facility] Thin prep Papanicolaou smear with manual screeningOrdered By: Radha Elliott on 01-02-2023 Thin prep Papanicolaou smear with manual screening 4 06-26 [facility] Whole blood hemoglobin A1c/t otal hemoglobin ratio (mass fraction)Ordered By: Radha Elliott on 01-02-2023 HbA1c (Bld) [Mass fraction] 5.0 % 3.8-5.6 [facility] Comment on above: Normal < 5.7 % Predi abetic 5.7 - 6.4 % Diabetic >or= 6.5 % Please note range changes. BASIC METABOLIC PANELon 12-14 Anion gap [Moles/Vol] 6 mmol/L Normal 3-13 [facility] Comment on above: Performed By: #### L [id number] ####Chamber Magistrate: VEENA RODRIGUEZ ([id number])[facility] ([facility])[address] [place] [address] Performed By: #### L [id number] ####Chamber Magistrate: VEENA RODRIGUEZ ([id number])[facility] ([facility])[address] [place] [address] Calcium [Mass/Vol] 8.4 mg/dL Normal 8.4-10.4 [facility] Comment on above: Performed By: #### L [id number] ####Chamber Magistrate: VEENA RODRIGUEZ ([id number])[facility] ([facility])[address] [place] [address] Performed By: #### L [id number]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 after the since script was sent 10/18. Normal [facility] 36 Please advise This is what I see in the Rx Start Date: 10/15/22 End Date: 11/14/22 after 30 doses Is this correct? [facility] [address] from [facility] [place] called in asking for an "end date" for Lovenox. Patient was put on the injection upon discharge and they do not know when they are able to discontinue it. Please call Wendy and advise. Patient is also located in [facility] 36on 10-17-2022 36 Conversion left tota l hip arthroplasty DOS: 10/10/[address] Parks at the phone number provided in the TE, no answer. LVM to call office if still needed, phone number provided Normal [facility] 36 Can you call and fin d out what questions he may have? Normal [facility] 36on 10-16-2022 36 Normal [facility] 36 Normal [facility] Basic metabolic 1998 panelon 10-15-2022 Anion gap [Moles/Vol] 7 mmol/L 3 - 13 mmol/L [facility] Calcium [Mass/Vol] 8.6 mg/dL 8.4 - 10. 4 mg/dL [facility] Chloride [Moles/Vol] 101 mmol/L 98 - 10 7 mmol/L [facility] CO2 [Moles/Vol] 28 mmol/L 22 - 30 mmol/L [facility] Creatinine [Mass/Vol] 0.56 mg/dL 0.52 - 1.04 mg/dL [facility] GFR/1.73 sq M.predicted MDRD (S/P/Bld) [Vol rate/Area] - PINF [facility] Glucose [Mass/Vol] 154 mg/dL High 70 - 100 mg/dL [facility] Interpretation and review of laboratory results Abnormal [facility] Potassium [Moles/Vol] 4.8 mmol/L 3.5 - 5.1 mmol/L [facility] Sodium [Moles/Vol] 136 mmol/L 135 - 145 mmol/L [facility] Urea nitrogen [Mass/Vol] 17 mg/dL 7 - 17 mg/dL [facility] CARECOORDon 10-15-2022 [facility] Direction life skills coordinator volunteer notified of pt dc to [facility]. Normal [facility] Normal [facility] Per CM request, p t discharge orders faxed to . Normal [facility] Normal [facility] CBC W Auto Differential pane l (Bld)Ordered By: Miguel Lockwood on 10-15-2022 Basophils (Bld) [#/Vol] 0.0 10*3/uL 0.0 - 0.2 10*3/uL [facility] Basophils/100 WBC (Bld) 0.2 % 0.0 - 2.0 % [facility] Eosinophils (Bld) [#/Vol] 0.5 10*3/uL 0.0 - 0.5 10*3/uL [facility] Eosinophils/100 WBC (Bld) 3.6 % 1.0 - 6.0 % [facility] Erythrocyte distribution width (RBC) [Ratio] 15.0 % High 11.5 - 14.5 % [facility] Hematocrit (Bld) [Volume fraction] 28.0 % Low 35.0 - 47.0 % [facility] Hemoglobin (Bld) [Mass/Vol] 9.0 g/dL Low 11.7 - 16.0 g/dL [facility] Interpretation and review of laboratory results Abnormal [facility] Lymphocytes (Bld) [#/Vol] 2.4 10*3/uL 1.0 - 4.3 10*3/uL [facility] Lymphocytes/100 WBC (Bld) 17.7 % Low 20.0 - 40.0 % [facility] MCH (RBC) [Entitic mass] 29.3 pg 26.0 - 34.0 pg [facility] MCHC (RBC) [Mass/Vol] 32.2 % 32.0 - 36.0 % [facility] MCV (RBC) [Entitic vol] 90.8 fL 80.0 - 98.0 fL [facility] Monocytes (Bld) [#/Vol] 0.8 10*3/uL 0.0 - 0.8 10*3/uL [facility] Monocytes/100 WBC (Bld) 5.8 % 2.0 - 10.0 % [facility] Neutrophils (Bld) [#/Vol] 9.9 10*3/uL High 1.8 - 7.0 10*3/uL [facility] Neutrophils/100 WBC (Bld) 72.7 % 40.0 - 80.0 % [facility] Nucleated RBC/100 WBC (Bld) [Ratio] 0.0 % [facility] Platelet mean volume (Bld) [Entitic vol] 8.0 fL 7.4 - 12.4 fL [facility] Platelets (Bld) [#/Vol] 301 10*3/uL 140 - 440 10*3/uL [facility] RBC (Bld) [#/Vol] 3.09 10*6/uL Low 3.8 - 5.20 10*6/uL [facility] WBC (Bld) [#/Vol] 13.6 10*3/uL High 3.6 - 10.7 10*3/uL [facility] Laboratory - Chemistry and C hemistry - challengeon 10-15-2022 Glucose [Mass/Vol] 231 mg/dL High 70 - 100 mg/dL [facility] Glucose [Mass/Vol] 118 mg/dL High 70 - 100 mg/dL [facility] No Panel Informationon 10-15 Interpretation and review of laboratory results Abnormal [facility] Interpretation and review of laboratory results Abnormal [facility] Nursing Noteon 10-15-2022 Nursing Note Report given to HAMILTON knapp at [facility]. Pt waiting on transport. Normal [facility] Progress Noteon 10-15-2022 Progress Note Femoral head on that failed nail, no tumor. Normal [facility] Progress Note Normal [facility] Bacteria identified Aer cx N om (Unsp spec)Ordered By: Lanre Gonsalez on 10-14-2022 Gram Stain Result Rare Polymorphonucle ar leukocytes per low power field [facility] Gram Stain Result No organisms seen [facility] Bacteria identified Aer cx N om (Unsp spec)Ordered By: Tiana Pollard on 10-14-2022 Gram Stain Result Rare Polymorphonucle ar leukocytes per low power field [facility] Gram Stain Result No organisms seen [facility] Bacteria identified Aer cx N om (Unsp spec)on 10-14-2022 Gram Stain Result Moderate Polymorphonuclear leukocytes per low power field [facility] Gram Stain Result No organisms seen [facility] Basic metabolic 1998 panelon 10-14-2022 Anion gap [Moles/Vol] 6 mmol/L 3 - 13 mmol/L [facility] Calcium [Mass/Vol] 8.3 mg/dL Low 8.4 - 10. 4 mg/dL [facility] Chloride [Moles/Vol] 102 mmol/L 98 - 10 7 mmol/L [facility] CO2 [Moles/Vol] 29 mmol/L 22 - 30 mmol/L [facility] Creatinine [Mass/Vol] 0.58 mg/dL 0.52 - 1.04 mg/dL [facility] GFR/1.73 sq M.predicted MDRD (S/P/Bld) [Vol rate/Area] - PINF [facility] Glucose [Mass/Vol] 137 mg/dL High 70 - 100 mg/dL [facility] Interpretation and review of laboratory results Abnormal [facility] Potassium [Moles/Vol] 4.3 mmol/L 3.5 - 5.1 mmol/L [facility] Sodium [Moles/Vol] 136 mmol/L 135 - 145 mmol/L [facility] Urea nitrogen [Mass/Vol] 14 mg/dL 7 - 17 mg/dL [facility] CARECOORDon 10-14-2022 CARECOPROSPECT Normal [facility] System [facility] CBC W Auto Differential pane l (Bld)on 10-14-2022 Basophils (Bld) [#/Vol] 0.1 10*3/uL 0.0 - 0.2 10*3/uL [facility] Basophils/100 WBC (Bld) 0.9 % 0.0 - 2.0 % [facility] Eosinophils (Bld) [#/Vol] 0.4 10*3/uL 0.0 - 0.5 10*3/uL [facility] Eosinophils/100 WBC (Bld) 3.4 % 1.0 - 6.0 % [facility] Erythrocyte distribution width (RBC) [Ratio] 14.9 % High 11.5 - 14.5 % [facility] Hematocrit (Bld) [Volume fraction] 28.2 % Low 35.0 - 47.0 % [facility] Hemoglobin (Bld) [Mass/Vol] 9.1 g/dL Low 11.7 - 16.0 g/dL [facility] Interpretation and review of laboratory results Abnormal [facility] Lymphocytes (Bld) [#/Vol] 3.3 10*3/uL 1.0 - 4.3 10*3/uL [facility] Lymphocytes/100 WBC (Bld) 27.4 % 20.0 - 40.0 % [facility] MCH (RBC) [Entitic mass] 29.5 pg 26.0 - 34.0 pg [facility] MCHC (RBC) [Mass/Vol] 32.3 % 32.0 - 36.0 % [facility] MCV (RBC) [Entitic vol] 91.4 fL 80.0 - 98.0 fL [facility] Monocytes (Bld) [#/Vol] 0.7 10*3/uL 0.0 - 0.8 10*3/uL [facility] Monocytes/100 WBC (Bld) 5.9 % 2.0 - 10.0 % [facility] Neutrophils (Bld) [#/Vol] 7.5 10*3/uL High 1.8 - 7.0 10*3/uL [facility] Neutrophils/100 WBC (Bld) 62.4 % 40.0 - 80.0 % [facility] Nucleated RBC/100 WBC (Bld) [Ratio] 0.1 % [facility] Platelet mean volume (Bld) [Entitic vol] 8.0 fL 7.4 - 12.4 fL [facility] Platelets (Bld) [#/Vol] 261 10*3/uL 140 - 440 10*3/uL [facility] RBC (Bld) [#/Vol] 3.08 10*6/uL Low 3.8 - 5.20 10*6/uL [facility] WBC (Bld) [#/Vol] 12.1 10*3/uL High 3.6 - 10.7 10*3/uL [facility] Laboratory - Chemistry and C hemistry - challengeon 10-14-2022 Glucose [Mass/Vol] 190 mg/dL High 70 - 100 mg/dL [facility] Glucose [Mass/Vol] 209 mg/dL High 70 - 100 mg/dL [facility] Glucose [Mass/Vol] 193 mg/dL High 70 - 100 mg/dL [facility] Glucose [Mass/Vol] 88 mg/dL 70 - 100 mg/dL [facility] Laboratory - Microbiology an d Antimicrobial susceptibilityOrdered By: Lanre Gonsalez on 10-14-2022 Bacteria identified Aer cx Nom (Unsp spec) No growth at 72 hours [facility] Laboratory - Microbiology an d Antimicrobial susceptibilityOrdered By: Tiana Pollard on 10-14-2022 Bacteria identified Aer cx Nom (Unsp spec) No growth at 72 hours [facility] Laboratory - Microbiology an d Antimicrobial susceptibilityon 10-14-2022 Bacteria identified Aer cx Nom (Unsp spec) No growth at 72 hours [facility] No Panel Informationon 10-14 Interpretation and review of laboratory results Abnormal [facility] Interpretation and review of laboratory results Abnormal [facility] Interpretation and review of laboratory results Abnormal [facility] Interpretation and review of laboratory results Normal [facility] Blood Expiration Date [id number] S [facility] Crossmatch interpretation COMP [facility] Dispense Status Released from Crossmatch [facility] Product Blood Type 5100 [facility] PRODUCT CODE [id number] [facility] Unit ABO O [facility] Unit Number [id number] [facility] Unit Number [id number] [facility] Unit RH Positive [facility] Unit Volume 300 mL [facility] Progress Noteon 10-14-2022 Progress Note Normal [facility] Progress Note Normal [facility] Progress Note Normal [facility] Basic metabolic 1998 panelon 10-13-2022 Anion gap [Moles/Vol] 8 mmol/L 3 - 13 mmol/L [facility] Calcium [Mass/Vol] 8.3 mg/dL Low 8.4 - 10. 4 mg/dL [facility] Chloride [Moles/Vol] 99 mmol/L 98 - 10 7 mmol/L [facility] CO2 [Moles/Vol] 29 mmol/L 22 - 30 mmol/L [facility] Creatinine [Mass/Vol] 0.55 mg/dL 0.52 - 1.04 mg/dL [facility] GFR/1.73 sq M.predicted MDRD (S/P/Bld) [Vol rate/Area] - PINF [facility] Glucose [Mass/Vol] 103 mg/dL High 70 - 100 mg/dL [facility] Interpretation and review of laboratory results Abnormal [facility] Potassium [Moles/Vol] 4.2 mmol/L 3.5 - 5.1 mmol/L [facility] Sodium [Moles/Vol] 136 mmol/L 135 - 145 mmol/L [facility] Urea nitrogen [Mass/Vol] 14 mg/dL 7 - 17 mg/dL [facility] CARECOORDon 10-13-2022 CARECOORD Normal [facility] CBC W Auto Differential pane l (Bld)on 10-13-2022 Basophils (Bld) [#/Vol] 0.0 10*3/uL 0.0 - 0.2 10*3/uL [facility] Basophils/100 WBC (Bld) 0.1 % 0.0 - 2.0 % [facility] Eosinophils (Bld) [#/Vol] 0.2 10*3/uL 0.0 - 0.5 10*3/uL [facility] Eosinophils/100 WBC (Bld) 1.6 % 1.0 - 6.0 % [facility] Erythrocyte distribution width (RBC) [Ratio] 15.0 % High 11.5 - 14.5 % [facility] Hematocrit (Bld) [Volume fraction] 29.8 % Low 35.0 - 47.0 % [facility] Hemoglobin (Bld) [Mass/Vol] 9.5 g/dL Low 11.7 - 16.0 g/dL [facility] Interpretation and review of laboratory results Abnormal [facility] Lymphocytes (Bld) [#/Vol] 3.8 10*3/uL 1.0 - 4.3 10*3/uL [facility] Lymphocytes/100 WBC (Bld) 26.8 % 20.0 - 40.0 % [facility] MCH (RBC) [Entitic mass] 29.2 pg 26.0 - 34.0 pg [facility] MCHC (RBC) [Mass/Vol] 31.9 % Low 32.0 - 36.0 % [facility] MCV (RBC) [Entitic vol] 91.7 fL 80.0 - 98.0 fL [facility] Monocytes (Bld) [#/Vol] 1.0 10*3/uL High 0.0 - 0.8 10*3/uL [facility] Monocytes/100 WBC (Bld) 7.1 % 2.0 - 10.0 % [facility] Neutrophils (Bld) [#/Vol] 9.0 10*3/uL High 1.8 - 7.0 10*3/uL [facility] Neutrophils/100 WBC (Bld) 64.4 % 40.0 - 80.0 % [facility] Nucleated RBC/100 WBC (Bld) [Ratio] 0.0 % [facility] Platelet mean volume (Bld) [Entitic vol] 7.9 fL 7.4 - 12.4 fL [facility] Platelets (Bld) [#/Vol] 247 10*3/uL 140 - 440 10*3/uL [facility] RBC (Bld) [#/Vol] 3.25 10*6/uL Low 3.8 - 5.20 10*6/uL [facility] WBC (Bld) [#/Vol] 14.1 10*3/uL High 3.6 - 10.7 10*3/uL [facility] Laboratory - Chemistry and C hemistry - challengeon 10-13-2022 Glucose [Mass/Vol] 213 mg/dL High 70 - 100 mg/dL [facility] Glucose [Mass/Vol] 135 mg/dL High 70 - 100 mg/dL [facility] Glucose [Mass/Vol] 133 mg/dL High 70 - 100 mg/dL [facility] Glucose [Mass/Vol] 109 mg/dL High 70 - 100 mg/dL [facility] No Panel Informationon 10-13 Interpretation and review of laboratory results Abnormal [facility] Interpretation and review of laboratory results Abnormal [facility] Interpretation and review of laboratory results Abnormal [facility] Interpretation and review of laboratory results Abnormal [facility] Progress Noteon 10-13-2022 Progress Note Normal [facility] Progress Note Normal [facility] Progress Note Normal [facility] Basic metabolic 1998 panelon 10-12-2022 Anion gap [Moles/Vol] 12 mmol/L 3 - 13 mmol/L [facility] Calcium [Mass/Vol] 8.6 mg/dL 8.4 - 10. 4 mg/dL [facility] Chloride [Moles/Vol] 101 mmol/L 98 - 10 7 mmol/L [facility] CO2 [Moles/Vol] 27 mmol/L 22 - 30 mmol/L [facility] Creatinine [Mass/Vol] 0.64 mg/dL 0.52 - 1.04 mg/dL [facility] GFR/1.73 sq M.predicted MDRD (S/P/Bld) [Vol rate/Area] - PINF [facility] Glucose [Mass/Vol] 212 mg/dL High 70 - 100 mg/dL [facility] Interpretation and review of laboratory results Abnormal [facility] Potassium [Moles/Vol] 4.4 mmol/L 3.5 - 5.1 mmol/L [facility] Sodium [Moles/Vol] 140 mmol/L 135 - 145 mmol/L [facility] Urea nitrogen [Mass/Vol] 17 mg/dL 7 - 17 mg/dL [facility] CARECOORDon 10-12-2022 [facility] coverage for toda y. Plan is for pt to return to [facility] when stable. Ambulance form completed and placed on pt's chart. Normal [facility] Normal [facility] CBC W Auto Differential pane l (Bld)Ordered By: Jamie South on 10-12-2022 Basophils (Bld) [#/Vol] 0.0 10*3/uL 0.0 - 0.2 10*3/uL [facility] Basophils/100 WBC (Bld) 0.1 % 0.0 - 2.0 % [facility] Eosinophils (Bld) [#/Vol] 0.1 10*3/uL 0.0 - 0.5 10*3/uL [facility] Eosinophils/100 WBC (Bld) 0.6 % Low 1.0 - 6.0 % [facility] Erythrocyte distribution width (RBC) [Ratio] 14.8 % High 11.5 - 14.5 % [facility] Hematocrit (Bld) [Volume fraction] 28.0 % Low 35.0 - 47.0 % [facility] Hemoglobin (Bld) [Mass/Vol] 9.1 g/dL Low 11.7 - 16.0 g/dL [facility] Interpretation and review of laboratory results Abnormal [facility] Lymphocytes (Bld) [#/Vol] 2.6 10*3/uL 1.0 - 4.3 10*3/uL [facility] Lymphocytes/100 WBC (Bld) 16.7 % Low 20.0 - 40.0 % [facility] MCH (RBC) [Entitic mass] 29.7 pg 26.0 - 34.0 pg [facility] MCHC (RBC) [Mass/Vol] 32.4 % 32.0 - 36.0 % [facility] MCV (RBC) [Entitic vol] 91.7 fL 80.0 - 98.0 fL [facility] Monocytes (Bld) [#/Vol] 1.0 10*3/uL High 0.0 - 0.8 10*3/uL [facility] Monocytes/100 WBC (Bld) 6.8 % 2.0 - 10.0 % [facility] Neutrophils (Bld) [#/Vol] 11.6 10*3/uL High 1.8 - 7.0 10*3/uL [facility] Neutrophils/100 WBC (Bld) 75.8 % 40.0 - 80.0 % [facility] Nucleated RBC/100 WBC (Bld) [Ratio] 0.0 % [facility] Platelet mean volume (Bld) [Entitic vol] 8.1 fL 7.4 - 12.4 fL [facility] Platelets (Bld) [#/Vol] 233 10*3/uL 140 - 440 10*3/uL [facility] RBC (Bld) [#/Vol] 3.05 10*6/uL Low 3.8 - 5.20 10*6/uL [facility] WBC (Bld) [#/Vol] 15.3 10*3/uL High 3.6 - 10.7 10*3/uL [facility] IDNon 10-12-2022 IDN Normal [facility] Laboratory - Chemistry and C hemistry - challengeon 10-12-2022 Glucose [Mass/Vol] 206 mg/dL High 70 - 100 mg/dL [facility] Glucose [Mass/Vol] 170 mg/dL High 70 - 100 mg/dL [facility] Glucose [Mass/Vol] 207 mg/dL High 70 - 100 mg/dL [facility] Glucose [Mass/Vol] 120 mg/dL High 70 - 100 mg/dL [facility] No Panel Informationon 10-12 Interpretation and review of laboratory results Abnormal [facility] Interpretation and review of laboratory results Abnormal [facility] Interpretation and review of laboratory results Abnormal [facility] Interpretation and review of laboratory results Abnormal [facility] Progress Noteon 10-12-2022 Progress Note Normal [facility] Progress Note Normal [facility] Progress Note Normal [facility] Progress Note Normal [facility] Basic metabolic 1998 panelon 10-11-2022 Anion gap [Moles/Vol] 15 mmol/L High 3 - 13 mmol/L [facility] Calcium [Mass/Vol] 9.0 mg/dL 8.4 - 10. 4 mg/dL [facility] Chloride [Moles/Vol] 99 mmol/L 98 - 10 7 mmol/L [facility] CO2 [Moles/Vol] 20 mmol/L Low 22 - 30 mmol/L [facility] Creatinine [Mass/Vol] 0.62 mg/dL 0.52 - 1.04 mg/dL [facility] GFR/1.73 sq M.predicted MDRD (S/P/Bld) [Vol rate/Area] - PINF [facility] Glucose [Mass/Vol] 323 mg/dL High 70 - 100 mg/dL [facility] Interpretation and review of laboratory results Abnormal [facility] Potassium [Moles/Vol] 5.0 mmol/L 3.5 - 5.1 mmol/L [facility] Sodium [Moles/Vol] 135 mmol/L 135 - 145 mmol/L [facility] Urea nitrogen [Mass/Vol] 20 mg/dL High 7 - 17 mg/dL [facility] CARECOORDon 10-11-2022 CARECOORD Normal [facility] CAREPLNon 10-11-2022 CAREPLN Normal [facility] CBC W Auto Differential pane l (Bld)Ordered By: Priya Torres on 10-11-2022 Basophils (Bld) [#/Vol] 0.0 10*3/uL 0.0 - 0.2 10*3/uL [facility] Basophils/100 WBC (Bld) 0.0 % 0.0 - 2.0 % [facility] Eosinophils (Bld) [#/Vol] 0.0 10*3/uL 0.0 - 0.5 10*3/uL [facility] Eosinophils/100 WBC (Bld) 0.0 % Low 1.0 - 6.0 % [facility] Erythrocyte distribution width (RBC) [Ratio] 14.8 % High 11.5 - 14.5 % [facility] Hematocrit (Bld) [Volume fraction] 29.5 % Low 35.0 - 47.0 % [facility] Hemoglobin (Bld) [Mass/Vol] 9.7 g/dL Low 11.7 - 16.0 g/dL [facility] [facility] Interpretation and review of laboratory results Abnormal [facility] Lymphocytes (Bld) [#/Vol] 0.4 10*3/uL Low 1.0 - 4.3 10*3/uL [facility] Lymphocytes/100 WBC (Bld) 3.1 % Low 20.0 - 40.0 % [facility] MCH (RBC) [Entitic mass] 29.9 pg 26.0 - 34.0 pg [facility] MCHC (RBC) [Mass/Vol] 32.9 % 32.0 - 36.0 % [facility] MCV (RBC) [Entitic vol] 91.1 fL 80.0 - 98.0 fL [facility] Monocytes (Bld) [#/Vol] 0.2 10*3/uL 0.0 - 0.8 10*3/uL [facility] Monocytes/100 WBC (Bld) 1.5 % Low 2.0 - 10.0 % [facility] Neutrophils (Bld) [#/Vol] 13.3 10*3/uL High 1.8 - 7.0 10*3/uL [facility] Neutrophils/100 WBC (Bld) 95.4 % High 40.0 - 80.0 % [facility] Nucleated RBC/100 WBC (Bld) [Ratio] 0.0 % [facility] Platelet mean volume (Bld) [Entitic vol] 8.3 fL 7.4 - 12.4 fL [facility] Platelets (Bld) [#/Vol] 207 10*3/uL 140 - 440 10*3/uL [facility] RBC (Bld) [#/Vol] 3.24 10*6/uL Low 3.8 - 5.20 10*6/uL [facility] WBC (Bld) [#/Vol] 14.0 10*3/uL High 3.6 - 10.7 10*3/uL [facility] Laboratory - Chemistry and C hemistry - challengeon 10-11-2022 Glucose [Mass/Vol] 188 mg/dL High 70 - 100 mg/dL [facility] Glucose [Mass/Vol] 303 mg/dL High 70 - 100 mg/dL [facility] Glucose [Mass/Vol] mg/dL High 70 - 100 mg/dL [facility] Glucose [Mass/Vol] 318 mg/dL High 70 - 100 mg/dL [facility] No Panel Informationon 10-11 Interpretation and review of laboratory results Abnormal [facility] Interpretation and review of laboratory results Abnormal [facility] Interpretation and review of laboratory results Abnormal [facility] Interpretation and review of laboratory results Abnormal [facility] Progress Noteon 10-11-2022 Progress Note Normal [facility] Progress Note Normal [facility] Progress Note Normal [facility] Progress Note Normal [facility] Progress Note Normal [facility] Progress Note Normal [facility] [id number] 10-10-2022 [id number] Normal [facility] Anesthesia Noteon 10-10-2022 Anesthesia Note Normal [facility] Anesthesia Note Normal [facility] Basic metabolic 1998 panelon 10-10-2022 Anion gap [Moles/Vol] 9 mmol/L 3 - 13 mmol/L [facility] Calcium [Mass/Vol] 8.9 mg/dL 8.4 - 10. 4 mg/dL [facility] Chloride [Moles/Vol] 101 mmol/L 98 - 10 7 mmol/L [facility] CO2 [Moles/Vol] 25 mmol/L 22 - 30 mmol/L [facility] Creatinine [Mass/Vol] 0.72 mg/dL 0.52 - 1.04 mg/dL [facility] GFR/1.73 sq M.predicted MDRD (S/P/Bld) [Vol rate/Area] - PINF [facility] Glucose [Mass/Vol] 268 mg/dL High 70 - 100 mg/dL [facility] Interpretation and review of laboratory results Abnormal [facility] Potassium [Moles/Vol] 4.7 mmol/L 3.5 - 5.1 mmol/L [facility] Sodium [Moles/Vol] 135 mmol/L 135 - 145 mmol/L [facility] Urea nitrogen [Mass/Vol] 24 mg/dL High 7 - 17 mg/dL [facility] Blood type and Crossmatch pa cristofer (Bld)on 10-10-2022 ABO group Nom (Bld) O [facility] Blood group antibody screen GEL Ql Negative [facility] D Ag Ql (RBC) Positive [facility] CARECOORDon 10-10-2022 CARECOORD To OR via bed, daugh ter at bedside. Normal [facility] CAR[facility]ORD Normal [facility] CBC W Auto Differential pane l (Bld)on 10-10-2022 Basophils (Bld) [#/Vol] 0.0 10*3/uL 0.0 - 0.2 10*3/uL [facility] Basophils/100 WBC (Bld) 0.4 % 0.0 - 2.0 % [facility] Eosinophils (Bld) [#/Vol] 0.2 10*3/uL 0.0 - 0.5 10*3/uL [facility] Eosinophils/100 WBC (Bld) 1.9 % 1.0 - 6.0 % [facility] Erythrocyte distribution width (RBC) [Ratio] 14.2 % 11.5 - 14.5 % [facility] Hematocrit (Bld) [Volume fraction] 34.5 % Low 35.0 - 47.0 % [facility] Hemoglobin (Bld) [Mass/Vol] 11.3 g/dL Low 11.7 - 16.0 g/dL [facility] Interpretation and review of laboratory results Abnormal [facility] Lymphocytes (Bld) [#/Vol] 3.3 10*3/uL 1.0 - 4.3 10*3/uL [facility] Lymphocytes/100 WBC (Bld) 30.7 % 20.0 - 40.0 % [facility] MCH (RBC) [Entitic mass] 30.0 pg 26.0 - 34.0 pg [facility] MCHC (RBC) [Mass/Vol] 32.9 % 32.0 - 36.0 % [facility] MCV (RBC) [Entitic vol] 91.2 fL 80.0 - 98.0 fL [facility] Monocytes (Bld) [#/Vol] 0.6 10*3/uL 0.0 - 0.8 10*3/uL [facility] Monocytes/100 WBC (Bld) 5.8 % 2.0 - 10.0 % [facility] Neutrophils (Bld) [#/Vol] 6.7 10*3/uL 1.8 - 7.0 10*3/uL [facility] Neutrophils/100 WBC (Bld) 61.2 % 40.0 - 80.0 % [facility] Nucleated RBC/100 WBC (Bld) [Ratio] 0.1 % [facility] Platelet mean volume (Bld) [Entitic vol] 7.8 fL 7.4 - 12.4 fL [facility] Platelets (Bld) [#/Vol] 302 10*3/uL 140 - 440 10*3/uL [facility] RBC (Bld) [#/Vol] 3.78 10*6/uL Low 3.8 - 5.20 10*6/uL [facility] WBC (Bld) [#/Vol] 10.9 10*3/uL High 3.6 - 10.7 10*3/uL [facility] Hemoglobin (Bld) [Mass/Vol]O rdered By: Alicja Cool on 10-10-2022 Hematocrit (Bld) [Volume fraction] 32.4 % Low 35.0 - 47.0 % [facility] Interpretation and review of laboratory results Abnormal [facility] Laboratory - Chemistry and C hemistry - challengeon 10-10-2022 Glucose [Mass/Vol] 354 mg/dL High 70 - 100 mg/dL [facility] Glucose [Mass/Vol] 250 mg/dL High 70 - 100 mg/dL [facility] Glucose [Mass/Vol] 159 mg/dL High 70 - 100 mg/dL [facility] Glucose [Mass/Vol] 213 mg/dL High 70 - 100 mg/dL [facility] Laboratory - Coagulationon 0 10-10-2022 aPTT Coag (PPP) [Time] 25.3 s 20.0 - 30.5 s [facility] INR Coag (PPP) [Relative time] 1.0 {INR} 0.9 - 1.1 [facility] PT Coag (Bld) [Time] 10.3 s 9.0 - 1 2.0 s [facility] Laboratory - Hematology and Cell countsOrdered By: Alicja Cool on 10-10-2022 Hemoglobin (Bld) [Mass/Vol] 10.4 g/dL Low 11.7 - 16.0 g/dL [facility] No Panel Informationon 10-10 Interpretation and review of laboratory results Abnormal [facility] Interpretation and review of laboratory results Abnormal [facility] IMAGING Blood Expiration Date S [facility] Crossmatch interpretation COMP [facility] Quick[employer] Dispense Status Transfused [facility] QuicklyChat Product Blood Type 5100 [facility] [employer] PRODUCT CODE [id number] [facility] [employer] PRODUCT CODE [id number] [facility] [employer] Unit ABO O [facility] Unit Number [id number] [facility] Unit Number [id number] [facility] Unit RH Positive [facility] Unit Volume 300 mL [facility] Interpretation and review of laboratory results Abnormal [facility] Interpretation and review of laboratory results Abnormal [facility] Interpretation and review of laboratory results Normal [facility] Nursing Noteon 10-10-2022 Nursing Note Junior Recruiter at bedside to b lock pt Normal [facility] Op Noteon 10-10-2022 Op Note Normal [facility] Progress Noteon 10-10-2022 Progress Note Normal [facility] Progress Note Normal [facility] Progress Note Normal [facility] Progress Note Normal [facility] Progress Note Normal [facility] XR FEMUR 2+ VW LEFTon 2022 XR FEMUR 2+ VW LEFT Normal [facility] XR Femur - left 2 [facility] RADIOLOG[facility] Radiology Study observation (narrative) [facility] XR PELVIS 1-2 VIEWSon 2022 XR PELVIS 1-2 VIEWS Normal [facility] XR Pelvis 1 or 2 [facility] Radiology Study observation (narrative) [facility] XR Pelvis 1 or 2 ViewsOrdere d By: Gautam Freeman on 10-10-2022 [facility] Work Phone: Anesthesia Noteon 10-09-2022 Anesthesia Note Normal [facility] Basic metabolic 1998 panelon 10-09-2022 Anion gap [Moles/Vol] 10 mmol/L 3 - 13 mmol/L [facility] Calcium [Mass/Vol] 8.6 mg/dL 8.4 - 10. 4 mg/dL [facility] Chloride [Moles/Vol] 100 mmol/L 98 - 10 7 mmol/L [facility] CO2 [Moles/Vol] 25 mmol/L 22 - 30 mmol/L [facility] Creatinine [Mass/Vol] 0.70 mg/dL 0.52 - 1.04 mg/dL [facility] GFR/1.73 sq M.predicted MDRD (S/P/Bld) [Vol rate/Area] - PINF [facility] Glucose [Mass/Vol] 219 mg/dL High 70 - 100 mg/dL [facility] Interpretation and review of laboratory results Abnormal [facility] Potassium [Moles/Vol] 4.8 mmol/L 3.5 - 5.1 mmol/L [facility] Sodium [Moles/Vol] 134 mmol/L Low 135 - 145 mmol/L [facility] Urea nitrogen [Mass/Vol] 25 mg/dL High 7 - 17 mg/dL [facility] CARECOORDon 10-09-2022 CARECOORD Normal [facility] CBC W Auto Differential pane l (Bld)on 10-09-2022 Basophils (Bld) [#/Vol] 0.1 10*3/uL 0.0 - 0.2 10*3/uL [facility] Basophils/100 WBC (Bld) 0.8 % 0.0 - 2.0 % [facility] Eosinophils (Bld) [#/Vol] 0.3 10*3/uL 0.0 - 0.5 10*3/uL [facility] Eosinophils/100 WBC (Bld) 2.0 % 1.0 - 6.0 % [facility] Erythrocyte distribution width (RBC) [Ratio] 14.4 % 11.5 - 14.5 % [facility] Hematocrit (Bld) [Volume fraction] 32.3 % Low 35.0 - 47.0 % [facility] Hemoglobin (Bld) [Mass/Vol] 10.7 g/dL Low 11.7 - 16.0 g/dL [facility] Interpretation and review of laboratory results Abnormal [facility] Lymphocytes (Bld) [#/Vol] 4.1 10*3/uL 1.0 - 4.3 10*3/uL [facility] Lymphocytes/100 WBC (Bld) 30.3 % 20.0 - 40.0 % [facility] MCH (RBC) [Entitic mass] 29.7 pg 26.0 - 34.0 pg [facility] MCHC (RBC) [Mass/Vol] 33.0 % 32.0 - 36.0 % [facility] MCV (RBC) [Entitic vol] 89.8 fL 80.0 - 98.0 fL [facility] Monocytes (Bld) [#/Vol] 1.1 10*3/uL High 0.0 - 0.8 10*3/uL [facility] Monocytes/100 WBC (Bld) 8.0 % 2.0 - 10.0 % [facility] Neutrophils (Bld) [#/Vol] 8.1 10*3/uL High 1.8 - 7.0 10*3/uL [facility] Neutrophils/100 WBC (Bld) 58.9 % 40.0 - 80.0 % [facility] Nucleated RBC/100 WBC (Bld) [Ratio] 0.0 % [facility] Platelet mean volume (Bld) [Entitic vol] 8.3 fL 7.4 - 12.4 fL [facility] Platelets (Bld) [#/Vol] 329 10*3/uL 140 - 440 10*3/uL [facility] RBC (Bld) [#/Vol] 3.60 10*6/uL Low 3.8 - 5.20 10*6/uL [facility] WBC (Bld) [#/Vol] 13.7 10*3/uL High 3.6 - 10.7 10*3/uL [facility] Laboratory - Chemistry and C hemistry - challengeon 10-09-2022 Glucose [Mass/Vol] 253 mg/dL High 70 - 100 mg/dL [facility] Glucose [Mass/Vol] 229 mg/dL High 70 - 100 mg/dL [facility] Glucose [Mass/Vol] 248 mg/dL High 70 - 100 mg/dL [facility] Glucose [Mass/Vol] 178 mg/dL High 70 - 100 mg/dL [facility] No Panel Informationon 10-09 Interpretation and review of laboratory results Abnormal [facility] Interpretation and review of laboratory results Abnormal [facility] Interpretation and review of laboratory results Abnormal [facility] Interpretation and review of laboratory results Abnormal [facility] Progress Noteon 10-09-2022 Progress Note Normal [facility] Progress Note Normal [facility] Progress Note Normal [facility] XR FEMUR 2+ VW LEFTon 2022 XR FEMUR 2+ VW LEFT Normal [facility] XR Femur - left 2 [facility] Radiology Study observation (narrative) [facility] XR Femur - left 2 ViewsOrder ed By: Norman Rodriguez on 10-09-2022 [facility] Work Phone: Basic metabolic 1998 panelon 10-08-2022 Anion gap [Moles/Vol] 11 mmol/L 3 - 13 mmol/L [facility] Calcium [Mass/Vol] 8.9 mg/dL 8.4 - 10. 4 mg/dL [facility] Chloride [Moles/Vol] 102 mmol/L 98 - 10 7 mmol/L [facility] CO2 [Moles/Vol] 23 mmol/L 22 - 30 mmol/L [facility] Creatinine [Mass/Vol] 0.89 mg/dL 0.52 - 1.04 mg/dL [facility] GFR/1.73 sq M.predicted MDRD (S/P/Bld) [Vol rate/Area] 70.7 mL/min/{1.73_m2} - PINF [facility] Glucose [Mass/Vol] 179 mg/dL High 70 - 100 mg/dL [facility] Interpretation and review of laboratory results Abnormal [facility] Potassium [Moles/Vol] 4.9 mmol/L 3.5 - 5.1 mmol/L [facility] Sodium [Moles/Vol] 136 mmol/L 135 - 145 mmol/L [facility] Urea nitrogen [Mass/Vol] 25 mg/dL High 7 - 17 mg/dL [facility] CBC W Auto Differential pane l (Bld)on 10-08-2022 Basophils (Bld) [#/Vol] 0.0 10*3/uL 0.0 - 0.2 10*3/uL [facility] Basophils/100 WBC (Bld) 0.3 % 0.0 - 2.0 % [facility] Eosinophils (Bld) [#/Vol] 0.2 10*3/uL 0.0 - 0.5 10*3/uL [facility] Eosinophils/100 WBC (Bld) 1.3 % 1.0 - 6.0 % [facility] Erythrocyte distribution width (RBC) [Ratio] 14.7 % High 11.5 - 14.5 % [facility] Hematocrit (Bld) [Volume fraction] 35.9 % 35.0 - 47.0 % [facility] Hemoglobin (Bld) [Mass/Vol] 11.7 g/dL 11.7 - 16.0 g/dL [facility] Interpretation and review of laboratory results Abnormal [facility] Lymphocytes (Bld) [#/Vol] 3.7 10*3/uL 1.0 - 4.3 10*3/uL [facility] Lymphocytes/100 WBC (Bld) 29.1 % 20.0 - 40.0 % [facility] MCH (RBC) [Entitic mass] 30.2 pg 26.0 - 34.0 pg [facility] MCHC (RBC) [Mass/Vol] 32.5 % 32.0 - 36.0 % [facility] MCV (RBC) [Entitic vol] 92.8 fL 80.0 - 98.0 fL [facility] Monocytes (Bld) [#/Vol] 0.9 10*3/uL High 0.0 - 0.8 10*3/uL [facility] Monocytes/100 WBC (Bld) 6.7 % 2.0 - 10.0 % [facility] Neutrophils (Bld) [#/Vol] 8.1 10*3/uL High 1.8 - 7.0 10*3/uL [facility] Neutrophils/100 WBC (Bld) 62.6 % 40.0 - 80.0 % [facility] Nucleated RBC/100 WBC (Bld) [Ratio] 0.1 % [facility] Platelet mean volume (Bld) [Entitic vol] 8.0 fL 7.4 - 12.4 fL [facility] Platelets (Bld) [#/Vol] 353 10*3/uL 140 - 440 10*3/uL [facility] RBC (Bld) [#/Vol] 3.87 10*6/uL 3.8 - 5.20 10*6/uL [facility] WBC (Bld) [#/Vol] 12.9 10*3/uL High 3.6 - 10.7 10*3/uL [facility] Laboratory - Chemistry and C hemistry - challengeon 10-08-2022 Glucose [Mass/Vol] 193 mg/dL High 70 - 100 mg/dL [facility] Glucose [Mass/Vol] 241 mg/dL High 70 - 100 mg/dL [facility] Glucose [Mass/Vol] 271 mg/dL High 70 - 100 mg/dL [facility] Glucose [Mass/Vol] 149 mg/dL High 70 - 100 mg/dL [facility] No Panel Informationon 10-08 Interpretation and review of laboratory results Abnormal [facility] Interpretation and review of laboratory results Abnormal [facility] Interpretation and review of laboratory results Abnormal [facility] Interpretation and review of laboratory results Abnormal [facility] Progress Noteon 10-08-2022 Progress Note Normal [facility] Basic metabolic 1998 panelon 10-07-2022 Anion gap [Moles/Vol] 10 mmol/L 3 - 13 mmol/L [facility] Calcium [Mass/Vol] 9.2 mg/dL 8.4 - 10. 4 mg/dL [facility] Chloride [Moles/Vol] 103 mmol/L 98 - 10 7 mmol/L [facility] CO2 [Moles/Vol] 23 mmol/L 22 - 30 mmol/L [facility] Creatinine [Mass/Vol] 0.78 mg/dL 0.52 - 1.04 mg/dL [facility] GFR/1.73 sq M.predicted MDRD (S/P/Bld) [Vol rate/Area] 82.9 mL/min/{1.73_m2} - PINF [facility] Glucose [Mass/Vol] 130 mg/dL High 70 - 100 mg/dL [facility] Interpretation and review of laboratory results Abnormal [facility] Potassium [Moles/Vol] 4.4 mmol/L 3.5 - 5.1 mmol/L [facility] Sodium [Moles/Vol] 136 mmol/L 135 - 145 mmol/L [facility] Urea nitrogen [Mass/Vol] 26 mg/dL High 7 - 17 mg/dL [facility] CBC W Auto Differential pane l (Bld)Ordered By: Viji Steven on 10-07-2022 Basophils (Bld) [#/Vol] 0.0 10*3/uL 0.0 - 0.2 10*3/uL [facility] Basophils/100 WBC (Bld) 0.3 % 0.0 - 2.0 % [facility] Eosinophils (Bld) [#/Vol] 0.2 10*3/uL 0.0 - 0.5 10*3/uL [facility] Eosinophils/100 WBC (Bld) 1.8 % 1.0 - 6.0 % [facility] Erythrocyte distribution width (RBC) [Ratio] 14.5 % 11.5 - 14.5 % [facility] Hematocrit (Bld) [Volume fraction] 36.4 % 35.0 - 47.0 % [facility] Hemoglobin (Bld) [Mass/Vol] 12.0 g/dL 11.7 - 16.0 g/dL [facility] Interpretation and review of laboratory results Abnormal [facility] Lymphocytes (Bld) [#/Vol] 3.5 10*3/uL 1.0 - 4.3 10*3/uL [facility] Lymphocytes/100 WBC (Bld) 31.1 % 20.0 - 40.0 % [facility] MCH (RBC) [Entitic mass] 29.9 pg 26.0 - 34.0 pg [facility] MCHC (RBC) [Mass/Vol] 33.0 % 32.0 - 36.0 % [facility] MCV (RBC) [Entitic vol] 90.4 fL 80.0 - 98.0 fL [facility] Monocytes (Bld) [#/Vol] 0.8 10*3/uL 0.0 - 0.8 10*3/uL [facility] Monocytes/100 WBC (Bld) 7.2 % 2.0 - 10.0 % [facility] Neutrophils (Bld) [#/Vol] 6.7 10*3/uL 1.8 - 7.0 10*3/uL [facility] Neutrophils/100 WBC (Bld) 59.6 % 40.0 - 80.0 % [facility] Nucleated RBC/100 WBC (Bld) [Ratio] 0.0 % [facility] Platelet mean volume (Bld) [Entitic vol] 7.7 fL 7.4 - 12.4 fL [facility] Platelets (Bld) [#/Vol] 382 10*3/uL 140 - 440 10*3/uL [facility] RBC (Bld) [#/Vol] 4.02 10*6/uL 3.8 - 5.20 10*6/uL [facility] WBC (Bld) [#/Vol] 11.3 10*3/uL High 3.6 - 10.7 10*3/uL [facility] Laboratory - Chemistry and C hemistry - challengeon 10-07-2022 Glucose [Mass/Vol] 246 mg/dL High 70 - 100 mg/dL [facility] Glucose [Mass/Vol] 308 mg/dL High 70 - 100 mg/dL [facility] Glucose [Mass/Vol] 136 mg/dL High 70 - 100 mg/dL [facility] Glucose [Mass/Vol] 109 mg/dL High 70 - 100 mg/dL [facility] No Panel Informationon 10-07 Interpretation and review of laboratory results Abnormal [facility] Interpretation and review of laboratory results Abnormal [facility] Interpretation and review of laboratory results Abnormal [facility] Interpretation and review of laboratory results Abnormal [facility] Progress Noteon 10-07-2022 Progress Note Normal [facility] Basic metabolic 1998 panelon 10-06-2022 Anion gap [Moles/Vol] 11 mmol/L 3 - 13 mmol/L [facility] Calcium [Mass/Vol] 9.0 mg/dL 8.4 - 10. 4 mg/dL [facility] Chloride [Moles/Vol] 103 mmol/L 98 - 10 7 mmol/L [facility] CO2 [Moles/Vol] 24 mmol/L 22 - 30 mmol/L [facility] Creatinine [Mass/Vol] 0.72 mg/dL 0.52 - 1.04 mg/dL [facility] GFR/1.73 sq M.predicted MDRD (S/P/Bld) [Vol rate/Area] - PINF [facility] Glucose [Mass/Vol] 114 mg/dL High 70 - 100 mg/dL [facility] Interpretation and review of laboratory results Abnormal [facility] Potassium [Moles/Vol] 4.8 mmol/L 3.5 - 5.1 mmol/L [facility] Sodium [Moles/Vol] 138 mmol/L 135 - 145 mmol/L [facility] Urea nitrogen [Mass/Vol] 27 mg/dL High 7 - 17 mg/dL [facility] CARECOORDon 10-06-2022 CARECOORD Normal [facility] CBC W Auto Differential pane l (Bld)Ordered By: Silvia Alba on 10-06-2022 Basophils (Bld) [#/Vol] 0.0 10*3/uL 0.0 - 0.2 10*3/uL [facility] Basophils/100 WBC (Bld) 0.4 % 0.0 - 2.0 % [facility] Eosinophils (Bld) [#/Vol] 0.2 10*3/uL 0.0 - 0.5 10*3/uL [facility] Eosinophils/100 WBC (Bld) 1.3 % 1.0 - 6.0 % [facility] Erythrocyte distribution width (RBC) [Ratio] 14.7 % High 11.5 - 14.5 % [facility] Hematocrit (Bld) [Volume fraction] 36.0 % 35.0 - 47.0 % [facility] Hemoglobin (Bld) [Mass/Vol] 11.5 g/dL Low 11.7 - 16.0 g/dL [facility] Interpretation and review of laboratory results Abnormal [facility] Lymphocytes (Bld) [#/Vol] 4.4 10*3/uL High 1.0 - 4.3 10*3/uL [facility] Lymphocytes/100 WBC (Bld) 36.4 % 20.0 - 40.0 % [facility] MCH (RBC) [Entitic mass] 29.6 pg 26.0 - 34.0 pg [facility] MCHC (RBC) [Mass/Vol] 32.0 % 32.0 - 36.0 % [facility] MCV (RBC) [Entitic vol] 92.5 fL 80.0 - 98.0 fL [facility] Monocytes (Bld) [#/Vol] 0.9 10*3/uL High 0.0 - 0.8 10*3/uL [facility] Monocytes/100 WBC (Bld) 7.3 % 2.0 - 10.0 % [facility] Neutrophils (Bld) [#/Vol] 6.7 10*3/uL 1.8 - 7.0 10*3/uL [facility] Neutrophils/100 WBC (Bld) 54.6 % 40.0 - 80.0 % [facility] Nucleated RBC/100 WBC (Bld) [Ratio] 0.1 % [facility] Platelet mean volume (Bld) [Entitic vol] 8.0 fL 7.4 - 12.4 fL [facility] Platelets (Bld) [#/Vol] 350 10*3/uL 140 - 440 10*3/uL [facility] RBC (Bld) [#/Vol] 3.90 10*6/uL 3.8 - 5.20 10*6/uL [facility] WBC (Bld) [#/Vol] 12.2 10*3/uL High 3.6 - 10.7 10*3/uL [facility] Consulton 10-06-2022 Consult Normal [facility] Laboratory - Chemistry and C hemistry - challengeon 10-06-2022 Glucose [Mass/Vol] 280 mg/dL High 70 - 100 mg/dL [facility] Glucose [Mass/Vol] 205 mg/dL High 70 - 100 mg/dL [facility] Glucose [Mass/Vol] 231 mg/dL High 70 - 100 mg/dL [facility] Glucose [Mass/Vol] 119 mg/dL High 70 - 100 mg/dL [facility] No Panel Informationon 10-06 Interpretation and review of laboratory results Abnormal [facility] Interpretation and review of laboratory results Abnormal [facility] Interpretation and review of laboratory results Abnormal [facility] Interpretation and review of laboratory results Abnormal [facility] Progress Noteon 10-06-2022 Progress Note Normal [facility] Basic metabolic 1998 panelOr dered By: Jennifer Maguire on 10-05-2022 Anion gap [Moles/Vol] 9 mmol/L 3 - 13 mmol/L [facility] Calcium [Mass/Vol] 9.2 mg/dL 8.4 - 10. 4 mg/dL [facility] Chloride [Moles/Vol] 102 mmol/L 98 - 10 7 mmol/L [facility] CO2 [Moles/Vol] 27 mmol/L 22 - 30 mmol/L [facility] Creatinine [Mass/Vol] 0.88 mg/dL 0.52 - 1.04 mg/dL [facility] GFR/1.73 sq M.predicted MDRD (S/P/Bld) [Vol rate/Area] 71.7 mL/min/{1.73_m2} - PINF [facility] Glucose [Mass/Vol] 95 mg/dL 70 - 100 mg/dL [facility] Interpretation and review of laboratory results Abnormal [facility] Potassium [Moles/Vol] 5.1 mmol/L 3.5 - 5.1 mmol/L [facility] Sodium [Moles/Vol] 138 mmol/L 135 - 145 mmol/L [facility] Urea nitrogen [Mass/Vol] 27 mg/dL High 7 - 17 mg/dL [facility] CBC W Auto Differential pane l (Bld)Ordered By: Mikal Novoa on 10-05-2022 Basophils (Bld) [#/Vol] 0.0 10*3/uL 0.0 - 0.2 10*3/uL [facility] Basophils/100 WBC (Bld) 0.3 % 0.0 - 2.0 % [facility] Eosinophils (Bld) [#/Vol] 0.2 10*3/uL 0.0 - 0.5 10*3/uL [facility] Eosinophils/100 WBC (Bld) 1.7 % 1.0 - 6.0 % [facility] Erythrocyte distribution width (RBC) [Ratio] 14.7 % High 11.5 - 14.5 % [facility] Hematocrit (Bld) [Volume fraction] 36.6 % 35.0 - 47.0 % [facility] Hemoglobin (Bld) [Mass/Vol] 12.0 g/dL 11.7 - 16.0 g/dL [facility] Interpretation and review of laboratory results Abnormal [facility] Lymphocytes (Bld) [#/Vol] 3.7 10*3/uL 1.0 - 4.3 10*3/uL [facility] Lymphocytes/100 WBC (Bld) 30.5 % 20.0 - 40.0 % [facility] MCH (RBC) [Entitic mass] 30.1 pg 26.0 - 34.0 pg [facility] MCHC (RBC) [Mass/Vol] 32.7 % 32.0 - 36.0 % [facility] MCV (RBC) [Entitic vol] 92.2 fL 80.0 - 98.0 fL [facility] Monocytes (Bld) [#/Vol] 0.8 10*3/uL 0.0 - 0.8 10*3/uL [facility] Monocytes/100 WBC (Bld) 6.8 % 2.0 - 10.0 % [facility] Neutrophils (Bld) [#/Vol] 7.4 10*3/uL High 1.8 - 7.0 10*3/uL [facility] Neutrophils/100 WBC (Bld) 60.7 % 40.0 - 80.0 % [facility] Nucleated RBC/100 WBC (Bld) [Ratio] 0.0 % [facility] Platelet mean volume (Bld) [Entitic vol] 7.9 fL 7.4 - 12.4 fL [facility] Platelets (Bld) [#/Vol] 354 10*3/uL 140 - 440 10*3/uL [facility] RBC (Bld) [#/Vol] 3.97 10*6/uL 3.8 - 5.20 10*6/uL [facility] WBC (Bld) [#/Vol] 12.1 10*3/uL High 3.6 - 10.7 10*3/uL [facility] Laboratory - Chemistry and C hemistry - challengeon 10-05-2022 Glucose [Mass/Vol] 220 mg/dL High 70 - 100 mg/dL [facility] Glucose [Mass/Vol] 133 mg/dL High 70 - 100 mg/dL [facility] Glucose [Mass/Vol] 146 mg/dL High 70 - 100 mg/dL [facility] Glucose [Mass/Vol] 111 mg/dL High 70 - 100 mg/dL [facility] No Panel Informationon 10-05 Interpretation and review of laboratory results Abnormal [facility] Interpretation and review of laboratory results Abnormal [facility] Interpretation and review of laboratory results Abnormal [facility] Interpretation and review of laboratory results Abnormal [facility] Progress Noteon 10-05-2022 Progress Note Normal [facility] Progress Note Normal [facility] Progress Note Normal [facility] Progress Note Normal [facility] XR HIP 2 OR 3 VW LEFTon 09-13 XR HIP 2 OR 3 VW LEFT Normal [facility] XR Hip - left 3 Viewson [...] possible interval callus formation, and extreme varus. [facility] XR KNEE 1-2 VIEWS LEFTon XR KNEE 1-2 VIEWS LEFT Normal [facility] XR Knee - left 1 or 2 Viewso n 10-05-2022 [facility] Radiology Study observation (narrative) [facility] XR Knee - left 1 or 2 ViewsO rdered By: Natanael Austin on 10-05-2022 [facility] Work Phone: CARECOORDon 10-04-2022 CARECOORD Normal [facility] CBC W Auto Differential pane l (Bld)Ordered By: Marcos Celis on 10-04-2022 Basophils (Bld) [#/Vol] 0.1 10*3/uL 0.0 - 0.2 10*3/uL [facility] Basophils/100 WBC (Bld) 0.6 % 0.0 - 2.0 % [facility] Eosinophils (Bld) [#/Vol] 0.2 10*3/uL 0.0 - 0.5 10*3/uL [facility] Eosinophils/100 WBC (Bld) 1.6 % 1.0 - 6.0 % [facility] Erythrocyte distribution width (RBC) [Ratio] 14.6 % High 11.5 - 14.5 % [facility] Hematocrit (Bld) [Volume fraction] 37.2 % 35.0 - 47.0 % [facility] Hemoglobin (Bld) [Mass/Vol] 12.2 g/dL 11.7 - 16.0 g/dL [facility] Interpretation and review of laboratory results Abnormal [facility] Lymphocytes (Bld) [#/Vol] 3.9 10*3/uL 1.0 - 4.3 10*3/uL [facility] Lymphocytes/100 WBC (Bld) 32.4 % 20.0 - 40.0 % [facility] MCH (RBC) [Entitic mass] 29.9 pg 26.0 - 34.0 pg [facility] MCHC (RBC) [Mass/Vol] 32.9 % 32.0 - 36.0 % [facility] MCV (RBC) [Entitic vol] 90.7 fL 80.0 - 98.0 fL [facility] Monocytes (Bld) [#/Vol] 0.7 10*3/uL 0.0 - 0.8 10*3/uL [facility] Monocytes/100 WBC (Bld) 6.0 % 2.0 - 10.0 % [facility] Neutrophils (Bld) [#/Vol] 7.1 10*3/uL High 1.8 - 7.0 10*3/uL [facility] Neutrophils/100 WBC (Bld) 59.4 % 40.0 - 80.0 % [facility] Nucleated RBC/100 WBC (Bld) [Ratio] 0.1 % [facility] Platelet mean volume (Bld) [Entitic vol] 8.2 fL 7.4 - 12.4 fL [facility] Platelets (Bld) [#/Vol] 392 10*3/uL 140 - 440 10*3/uL [facility] RBC (Bld) [#/Vol] 4.10 10*6/uL 3.8 - 5.20 10*6/uL [facility] WBC (Bld) [#/Vol] 12.0 10*3/uL High 3.6 - 10.7 10*3/uL [facility] Comprehensive metabolic 1998 panelon 10-04-2022 Albumin [Mass/Vol] 3.8 g/dL 3.5 - 5.0 g/dL [facility] ALP [Catalytic activity/Vol] 134 U/L High 38 - 126 U/L [facility] ALT [Catalytic activity/Vol] 48 U/L High 0 - 34 U/L [facility] Anion gap [Moles/Vol] 12 mmol/L 3 - 13 mmol/L [facility] AST [Catalytic activity/Vol] 59 U/L High 15 - 46 U/L [facility] Bilirubin [Mass/Vol] 0.4 mg/dL 0.2 - 1 .3 mg/dL [facility] Calcium [Mass/Vol] 9.2 mg/dL 8.4 - 10. 4 mg/dL [facility] Chloride [Moles/Vol] 104 mmol/L 98 - 10 7 mmol/L [facility] CO2 [Moles/Vol] 21 mmol/L Low 22 - 30 mmol/L [facility] Creatinine [Mass/Vol] 0.69 mg/dL 0.52 - 1.04 mg/dL [facility] GFR/1.73 sq M.predicted MDRD (S/P/Bld) [Vol rate/Area] - PINF [facility] Glucose [Mass/Vol] 88 mg/dL 70 - 100 mg/dL [facility] Interpretation and review of laboratory results Abnormal [facility] Potassium [Moles/Vol] 4.0 mmol/L 3.5 - 5.1 mmol/L [facility] Protein [Mass/Vol] 7.3 g/dL 6.3 - 8.2 g/dL [facility] Sodium [Moles/Vol] 137 mmol/L 135 - 145 mmol/L [facility] Urea nitrogen [Mass/Vol] 28 mg/dL High 7 - 17 mg/dL [facility] Consulton 10-04-2022 Consult Normal [facility] Consult Normal [facility] ECG 12-LEADon 10-04-2022 ECG 12-LEAD IMPRESSION: Sinus rhythm Compared to ECG 09/16/2016 20:55:58 No significant changes Electronically Signed On 10-04-2022 5:29:00 EDT by Sharita Rutledge Normal [facility] HbA1c (Bld) [Mass fraction]o n 10-04-2022 Average glucose Estimated from glycated hemoglobin (Bld) [Mass/Vol] 105 mg/dL [facility] Laboratory - Chemistry and C hemistry - challengeon 10-04-2022 Glucose [Mass/Vol] 151 mg/dL High 70 - 100 mg/dL [facility] Glucose [Mass/Vol] 109 mg/dL High 70 - 100 mg/dL [facility] Glucose [Mass/Vol] 86 mg/dL 70 - 100 mg/dL [facility] Laboratory - Hematology and Cell countson 10-04-2022 HbA1c (Bld) [Mass fraction] 5.3 % NINF - 5.7 % [facility] No Panel Informationon 10-04 Interpretation and review of laboratory results Abnormal [facility] Interpretation and review of laboratory results Abnormal [facility] Interpretation and review of laboratory results Normal [facility] CV EPIPHANY [facility] No Panel InformationOrdered By: Sharita Rutledge on 10-04-2022 P [place] 66 degrees [facility] [employer] Work Phone: [place] Interval 184 ms [facility] [employer] Work Phone: QRS [place] -10 degrees [facility] [employer] Work Phone: QRSD Interval 99 ms [facility] Work Phone: QT Interval 383 ms [facility] [employer] Work Phone: QTC Interval 467 ms [facility] Work Phone: T Wave [place] 52 degrees [employer] Work Phone: [employer] Work Phone: Nursing Noteon 10-04-2022 Nursing Note Report called to Bree demarco RN at [facility]. Patient to be transferred via physicians ambulance at 7pm room 127 on H6. Normal [facility] Progress Noteon 10-04-2022 Progress Note Normal [facility] Progress Note Normal [facility] Progress Note Normal [facility] Progress Note Normal [facility] Progress Note Normal [facility] Vital signsOrdered By: Sonny Rutledge on 10-04-2022 Heart rate 89 /min bpm [facility] [employer] Work Phone: XR Chest Single viewon 10-04 [facility] Radiology Study observation (narrative) [facility] XR Chest Single viewOrdered By: Je Mark on 10-04-2022 [facility] [employer] Work Phone: 25-hydroxyvitamin D3 [Mass/V ol]on 10-03-2022 Interpretation and review of laboratory results Normal [facility] [employer] ABO and Rh group Confirm Nom (Bld)on 10-03-2022 ABO group Nom (Bld) O [facility] [employer] D Ag Ql (RBC) Positive [facility] Basic metabolic 1998 panelon 10-03-2022 Anion gap [Moles/Vol] 8 mmol/L 3 - 13 mmol/L [facility] [employer] Calcium [Mass/Vol] 9.6 mg/dL 8.4 - 10. 4 mg/dL [facility] [employer] Chloride [Moles/Vol] 104 mmol/L 98 - 10 7 mmol/L [facility] [employer] CO2 [Moles/Vol] 26 mmol/L 22 - 30 mmol/L [facility] Creatinine [Mass/Vol] 0.84 mg/dL 0.52 - 1.04 mg/dL [facility] GFR/1.73 sq M.predicted MDRD (S/P/Bld) [Vol rate/Area] 75.8 mL/min/{1.73_m2} - PINF [facility] Glucose [Mass/Vol] 143 mg/dL High 70 - 100 mg/dL [facility] Potassium [Moles/Vol] 6.0 mmol/L High 3.5 - 5.1 mmol/L [facility] Sodium [Moles/Vol] 138 mmol/L 135 - 145 mmol/L [facility] Urea nitrogen [Mass/Vol] 36 mg/dL High 7 - 17 mg/dL [facility] Blood type and Crossmatch pa cristofer (Bld)on 10-03-2022 ABO group Nom (Bld) O [facility] Blood group antibody screen GEL Ql Negative [facility] D Ag Ql (RBC) Positive [facility] CBC W Auto Differential pane l (Bld)Ordered By: Christina Whitt on 10-03-2022 Basophils (Bld) [#/Vol] 0.1 10*3/uL 0.0 - 0.2 10*3/uL [facility] Basophils/100 WBC (Bld) 0.5 % 0.0 - 2.0 % [facility] Eosinophils (Bld) [#/Vol] 0.2 10*3/uL 0.0 - 0.5 10*3/uL [facility] Eosinophils/100 WBC (Bld) 1.4 % 1.0 - 6.0 % [facility] Erythrocyte distribution width (RBC) [Ratio] 14.7 % High 11.5 - 14.5 % [facility] Hematocrit (Bld) [Volume fraction] 35.7 % 35.0 - 47.0 % [facility] Hemoglobin (Bld) [Mass/Vol] 11.9 g/dL 11.7 - 16.0 g/dL [facility] Interpretation and review of laboratory results Abnormal [facility] Lymphocytes (Bld) [#/Vol] 2.1 10*3/uL 1.0 - 4.3 10*3/uL [facility] Lymphocytes/100 WBC (Bld) 18.8 % Low 20.0 - 40.0 % [facility] MCH (RBC) [Entitic mass] 30.2 pg 26.0 - 34.0 pg [facility] MCHC (RBC) [Mass/Vol] 33.2 % 32.0 - 36.0 % [facility] MCV (RBC) [Entitic vol] 90.7 fL 80.0 - 98.0 fL [facility] Monocytes (Bld) [#/Vol] 0.7 10*3/uL 0.0 - 0.8 10*3/uL [facility] Monocytes/100 WBC (Bld) 6.0 % 2.0 - 10.0 % [facility] Neutrophils (Bld) [#/Vol] 8.1 10*3/uL High 1.8 - 7.0 10*3/uL [facility] Neutrophils/100 WBC (Bld) 73.3 % 40.0 - 80.0 % [facility] Nucleated RBC/100 WBC (Bld) [Ratio] 0.0 % [facility] Platelet mean volume (Bld) [Entitic vol] 8.0 fL 7.4 - 12.4 fL [facility] Platelets (Bld) [#/Vol] 350 10*3/uL 140 - 440 10*3/uL [facility] RBC (Bld) [#/Vol] 3.94 10*6/uL 3.8 - 5.20 10*6/uL [facility] WBC (Bld) [#/Vol] 11.0 10*3/uL High 3.6 - 10.7 10*3/uL [facility] CT HIP LEFT WO IV CONTRASTon 10-03-2022 CT HIP LEFT WO IV CONTRAST Normal [facility] CT Hip - left WO contraston 10-03-2022 [facility] Radiology Study observation (narrative) [facility] CT Hip - left WO contrastOrd ered By: Dereck Gramajo on 10-03-2022 [facility] Work Phone: CT PELVIS ANGIO W AND WO IV CONTRASTon 10-03-2022 CT PELVIS ANGIO W AND WO IV CONTRAST Normal [facility] CTA Pelvis vessels WO and W contrast Aristides 10-03-2022 [facility] Radiology Study observation (narrative) [facility] Consulton 10-03-2022 Consult Normal [facility] ED Provider Noteon ED Provider Note Normal [facility] ESR (Bld) [Velocity]on 10-03 Interpretation and review of laboratory results Abnormal [facility] Laboratory - Chemistry and C hemistry - challengeOrdered By: Adria Quiroga on 10-03-2022 Potassium [Moles/Vol] 4.7 mmol/L 3.5 - 5.1 mmol/L [facility] Laboratory - Chemistry and C hemistry - challengeon 10-03-2022 Glucose [Mass/Vol] 98 mg/dL 70 - 100 mg/dL [facility] 25-hydroxyvitamin D3 [Mass/Vol] 68 ng/mL 30 - 100 ng/mL [facility] CRP [Mass/Vol] 14.9 mg/L High NINF - 10.0 mg/L [facility] Laboratory - Coagulationon 0 10-03-2022 PT Coag (Bld) [Time] 11.0 s 9.0 - 1 2.0 s [facility] Laboratory - Hematology and Cell countson 10-03-2022 ESR (Bld) [Velocity] 46 mm/h High [facility] No Panel Informationon 10-03 Interpretation and review of laboratory results Normal [facility] Interpretation and review of laboratory results Abnormal [facility] Interpretation and review of laboratory results Normal [facility] PT Coag (Bld) [Time]on 10-03 INR Coag (PPP) [Relative time] 1.0 {INR} 0.9 - 1.1 [facility] Potassium [Moles/Vol]Ordered By: Adria Quiroga on 10-03-2022 Interpretation and review of laboratory results Normal [facility] Progress Noteon 10-03-2022 Progress Note Normal [facility] XR Hip - left 3 Viewson 09-13 Radiology Study observation (narrative) [facility] aPTT Coag (Bld) [Time]on aPTT Coag (PPP) [Time] 26.8 s 20.0 - 30.5 s [facility] Absolute lymphocyte countOrd ered By: Christopher Jackson on 09-18-2022 Lymphocytes Auto (Unsp spec) [#/Vol] 3.20 10*3/uL 0.83-4.51 [facility] Basophil percentageOrdered B y: Christopher Jackson on 09-18-2022 Basophils/100 WBC (Bld) 0.2 % 0-1 [facility] Eosinophils/100 WBC (Bld) 2.1 % 0-5 [facility] Neutrophils (Bld) [#/Vol] 5.2 10*3/uL 2.0-7.7 [facility] Neutrophils/100 WBC (Bld) 56.0 % 47-70 [facility] WBC (Bld) [#/Vol] 9.2 10*3/uL 4.4-11.0 [facility] Blood erythrocytes count (nu mber/volume)Ordered By: Christopher Jackson on 09-18-2022 RBC (Bld) [#/Vol] 3.85 10*6/uL 4.2-5.4 [facility] Blood hemoglobin measurement (mass/volume)Ordered By: Christopher Jackson on 09-18-2022 Hemoglobin (Bld) [Mass/Vol] 11.7 g/dL 12.0-15.0 [facility] Blood lymphocytes/100 leukoc ytesOrdered By: Christopher Jackson on 09-18-2022 Lymphocytes/100 WBC (Bld) 34.7 % 19-41 [facility] Blood monocytes/100 leukocyt esOrdered By: Christopher Jackson on 09-18-2022 Monocytes/100 WBC (Bld) 6.8 % 0-10 [facility] Blood platelet mean volumeOr dered By: Christopher Jackson on 09-18-2022 Platelet mean volume (Bld) [Entitic vol] 9.4 fL 6.2-12.0 [facility] Determination of erythrocyte mean corpuscular volume (MCV)Ordered By: Christopher Jackson on 09-18-2022 MCV (RBC) [Entitic vol] 94.5 fL 81-99 [facility] Hematocrit Auto (Bld) [Volum e fraction]Ordered By: Christopher Jackson on 09-18-2022 Hematocrit (Bld) [Volume fraction] 36.4 % 37-47 [facility] INR in Blood by Coagulation assayOrdered By: Christopher Jackson on 09-18-2022 INR Coag (Bld) [Relative time] 1.1 {INR} [facility] Laboratory - CoagulationOrde red By: Christopher Jackson on 09-18-2022 aPTT Coag (Bld) [Time] 30.7 s 24.1-36.2 [facility] PT Coag (PPP) [Time] 14.0 s 11.7-14.9 [facility] Laboratory - Hematology and Cell countsOrdered By: Christopher Jackson on 09-18-2022 Erythrocyte distribution width (RBC) [Entitic vol] 50.8 fL 35.1-43.9 [facility] Erythrocyte distribution width (RBC) [Ratio] 14.6 % 11.6-14.6 [facility] Immature granulocytes/100 WBC (Bld) 0.200 % 0.0-0.9 [facility] Comment on above: IG% - Immature Granu locytes (promyelocytes, myelocytes and metamyelocytes) > 1% indicates that a LEFT SHIFT is Present. MCH (RBC) [Entitic mass] 30.4 pg 27.0-32.0 [facility] Nucleated RBC/100 WBC (Bld) [Ratio] 0 % 0-5 [facility] MCHC Auto (RBC) [Mass/Vol]Or dered By: Christopher Jackson on 09-18-2022 MCHC (RBC) [Mass/Vol] 32.1 g/dL 32-36 [facility] No Panel InformationOrdered By: Regina Oden on 09-18-2022 Miscellaneous Test SEE PATH REPORT [facility] Platelets bldOrdered By: Andrew Jackson on 09-18-2022 Platelets (Bld) [#/Vol] 391 10*3/uL 150-450 [facility] Absolute lymphocyte countOrd ered By: Tamiko Quigley on 08-16-2022 Lymphocytes Auto (Unsp spec) [#/Vol] 2.20 10*3/uL 0.83-4.51 [facility] Albumin Elph [Mass/Vol]Order ed By: Tamiko Quigley on 08-16-2022 Albumin [Mass/Vol] 2.6 g/dL 2.9-4.4 [facility] Basophil percentageOrdered B y: Tamiko Quigley on 08-16-2022 Basophils/100 WBC (Bld) 0.1 % 0-1 [facility] Chloride [Moles/Vol] 98 mmol/L 98-107 [facility] Eosinophils/100 WBC (Bld) 1.8 % 0-5 [facility] Glucose [Mass/Vol] 165 mg/dL 74-106 [facility] Comment on above: Fasting Glucose resu lt greater than or equal to 126 mg/dL suggests DIABETES MELLITUS per A.D.A. criteria. Neutrophils (Bld) [#/Vol] 8.0 10*3/uL 2.0-7.7 [facility] Neutrophils/100 WBC (Bld) 69.7 % 47-70 [facility] Potassium [Moles/Vol] 3.3 mmol/L 3.5-5.1 [facility] Sodium [Moles/Vol] 138 mmol/L 136-145 [facility] WBC (Bld) [#/Vol] 11.4 10*3/uL 4.4-11.0 [facility] Blood erythrocytes count (nu mber/volume)Ordered By: Tamiko Quigley on 08-16-2022 RBC (Bld) [#/Vol] 2.76 10*6/uL 4.2-5.4 [facility] Blood hemoglobin measurement (mass/volume)Ordered By: Tmaiko Quigley on 08-16-2022 Hemoglobin (Bld) [Mass/Vol] 8.4 g/dL 12.0-15.0 [facility] Blood lymphocytes/100 leukoc ytesOrdered By: Tamiko Quigley on 08-16-2022 Lymphocytes/100 WBC (Bld) 19.3 % 19-41 [facility] Blood monocytes/100 leukocyt esOrdered By: Tamiko Quigley on 08-16-2022 Monocytes/100 WBC (Bld) 7.9 % 0-10 [facility] Blood platelet mean volumeOr dered By: Tamiko Quigley on 08-16-2022 Platelet mean volume (Bld) [Entitic vol] 9.5 fL 6.2-12.0 [facility] Determination of erythrocyte mean corpuscular volume (MCV)Ordered By: Tamiko Quigley on 08-16-2022 MCV (RBC) [Entitic vol] 94.2 fL 81-99 [facility] Glucose Glucometer (BldC) [M ass/Vol]Ordered By: Tamiko Quigley on 08-16-2022 Glucose [Mass/Vol] 144 mg/dL 74-106 [facility] Comment on above: MANAGEMENT OF PATIEN T CARE PER NURSING PROTOCOL Glucose [Mass/Vol] 187 mg/dL 74-106 [facility] Comment on above: MANAGEMENT OF PATIEN T CARE PER NURSING PROTOCOL Hematocrit Auto (Bld) [Volum e fraction]Ordered By: Tamiko Quigley on 08-16-2022 Hematocrit (Bld) [Volume fraction] 26.0 % 37-47 [facility] Interpretation of serum or p lasma protein pattern by immunofixation (narrative resultOrdered By: Tamiko Quigley on 08-16-2022 Protein Fractions Immunofixation Minesh [Interp] See comment [facility] Comment on above: Result: Not Observed Laboratory - Chemistry and C hemistry - challengeOrdered By: Tamiko Quigley on 08-16-2022 CO2 [Moles/Vol] 35.0 mmol/L 21.0-32.0 [facility] Urea nitrogen/Creatinine [Mass ratio] 23.1 mg/mg 10-20 [facility] Laboratory - Hematology and Cell countsOrdered By: Tamiko Quigley on 08-16-2022 Erythrocyte distribution width (RBC) [Entitic vol] 55.5 fL 35.1-43.9 [facility] Erythrocyte distribution width (RBC) [Ratio] 17.2 % 11.6-14.6 [facility] Immature granulocytes/100 WBC (Bld) 1.200 % 0.0-0.9 [facility] Comment on above: IG% - Immature Granu locytes (promyelocytes, myelocytes and metamyelocytes) > 1% indicates that a LEFT SHIFT is Present. MCH (RBC) [Entitic mass] 30.4 pg 27.0-32.0 [facility] Nucleated RBC/100 WBC (Bld) [Ratio] 0 % 0-5 [facility] MCHC Auto (RBC) [Mass/Vol]Or dered By: Tamiko Quigley on 08-16-2022 MCHC (RBC) [Mass/Vol] 32.3 g/dL 32-36 [facility] No Panel InformationOrdered By: Tamiko Quigley on 08-16-2022 Addendum Document Comment . [facility] Comment on above: Protein electrophore sis scan will follow via computer,mail, or patient insurance clerk delivery.Performed at: - [address] [id number] Director: Avni Valles PhD, Phone: [phone] Estimated Creatinine Clearance Calc 53.44 ml/min [facility] Estimated GFR (MDRD) Amer 83 mL/min >60 [facility] Comment on above: GFR Calc Estimated GFR (MDRD) Non-Af Amer 69 mL/min >60 [facility] Comment on above: Non- GFR Calc Platelets bldOrdered By: Paola Quigley on 08-16-2022 Platelets (Bld) [#/Vol] 312 10*3/uL 150-450 [facility] Serum [id number] measu rement by electrophoresisOrdered By: Tamiko Quigley on 08-16-2022 Alpha 1 globulin Elph [Mass/Vol] 0.4 g/dL 0.0-0.4 [facility] Alpha 1 globulin Elph [Mass/Vol] 0.7 g/dL 0.4-1.0 [facility] Serum globulin measurement ( mass/volume)Ordered By: Tamiko Quigley on 08-16-2022 Globulin (S) [Mass/Vol] 2.6 g/dL 2.2-3.9 [facility] Serum or plasma IgA measurem ent (mass/volume)Ordered By: Tamiko Quigley on 08-16-2022 IgA [Mass/Vol] 303 mg/dL 87-352 [facility] Serum or plasma IgG measurem ent (mass/volume)Ordered By: Tamiko Quigley on 08-16-2022 IgG [Mass/Vol] 770 mg/dL 586-1602 [facility] Serum or plasma IgM measurem ent (mass/volume)Ordered By: Tamiko Quigley on 08-16-2022 IgM [Mass/Vol] 75 mg/dL 26-217 [facility] Serum or plasma beta globuli n measurement by electrophoresis (mass/volume)Ordered By: Tamiko Quigley on 08-16-2022 Beta globulin Elph [Mass/Vol] 0.8 g/dL 0.7-1.3 [facility] Serum or plasma calcium timbo urement (mass/volume)Ordered By: Tamiko Quigley on 08-16-2022 Calcium [Mass/Vol] 8.2 mg/dL 8.5-10.1 [facility] Serum or plasma creatinine m easurement (mass/volume)Ordered By: Tamiko Quigley on 08-16-2022 Creatinine [Mass/Vol] 0.87 mg/dL 0.55-1.02 [facility] Comment on above: The validity of the calculated GFR & GFRAA in patients over 70 years has not been determined. Clinical correlation is essential. Serum or plasma gamma globul in measurement by electrophoresis (mass/volume)Ordered By: Tamiko Quigley on 08-16-2022 Gamma globulin Elph [Mass/Vol] 0.8 g/dL 0.4-1.8 [facility] Serum or plasma immunoelectr ophoresis interpretation (nominal result)Ordered By: Tamiko Quigley on 08-16-2022 Interpretation IEP [Interp] Comment . [facility] Comment on above: No monoclonality det ected. Serum or plasma urea nitroge n measurement (mass/volume)Ordered By: Tamiko Quigley on 08-16-2022 Urea nitrogen [Mass/Vol] 20 mg/dL 7-18 [facility] Thin prep Papanicolaou smear with manual screeningOrdered By: Tamiko Quigley on 08-16-2022 Thin prep Papanicolaou smear with manual screening 5 5-15 [facility] Thin prep Papanicolaou smear with manual screening 1.1 0.7-1.7 [facility] Total protein bloodOrdered B y: Tamiko Quigley on 08-16-2022 Protein [Mass/Vol] 5.2 g/dL 6.0-8.5 [facility] Basophil percentageOrdered B y: Tamiko Quigley on 08-15-2022 Basophil percentage 2.5 mg/dL 2.5-4.9 [facility] Bilirubin [Mass/Vol] 1.60 mg/dL 0.20-1.00 [facility] Comment on above: For patients on eltr ombopag therapy, use of Dimension Jackson TBIL is not recommended. Protein [Mass/Vol] 5.6 g/dL 6.4-8.2 [facility] Laboratory - Chemistry and C hemistry - challengeOrdered By: Tamiko Quigley on 08-15-2022 ALP [Catalytic activity/Vol] 75 U/L 45-117 [facility] ALT [Catalytic activity/Vol] 16 U/L 13-56 [facility] Globulin (S) [Mass/Vol] 3.2 g/dL 2.2-4.2 [facility] Magnesium [Mass/Vol] 1.2 mg/dL 1.6-2.6 [facility] Serum or plasma albumin timbo urement (mass/volume)Ordered By: Tamiko Quigley on 08-15-2022 Albumin [Mass/Vol] 2.4 g/dL 3.2-5.0 [facility] Serum or plasma albumin/glob ulin mass ratioOrdered By: Tamiko Quigley on 08-15-2022 Albumin/Globulin [Mass ratio] 0.8 {ratio} 0.9-2.4 [facility] Thin prep Papanicolaou smear with manual screeningOrdered By: Tamiko Quigley on 08-15-2022 Thin prep Papanicolaou smear with manual screening 18 U/L 15-37 [facility] AFB stainOrdered By: John Velez on 08-14-2022 Microscopic observation Acid fast stain Nom (Unsp spec) SEE PATHOLOGY REPORT [facility] Comment on above: Specimen submitted t o Anatomical Pathology Department for testing. Bacteria identified Anaer cx Nom (Unsp spec)Ordered By: John Short on 08-14-2022 Anaerobic Culture Prevotella bivia [facility] Bacterial body fluid culture Ordered By: John Short on 08-14-2022 Bacteria identified Cx Nom (Body fld) Culture exhibits no growth. [facility] Body fluid appearanceOrdered By: John Short on 08-14-2022 Appearance (Body fld) TURBID [facility] Body fluid color determinati onOrdered By: John Short on 08-14-2022 Color (Body fld) RED [facility] Body fluid erythrocytes coun t (number/volume)Ordered By: John Short on 08-14-2022 RBC (Body fld) [#/Vol] 2002 10*3/uL [facility] Body fluid leukocytes count (number/volume)Ordered By: John Short on 08-14-2022 WBC (Body fld) [#/Vol] 4.925 10*3/uL [facility] Body fluid lymphocytes/100 l eukocytesOrdered By: John Short on 08-14-2022 Lymphocytes/100 WBC (Body fld) 10 % [facility] Body fluid macrophage countO rdered By: John Short on 08-14-2022 Macrophages (Body fld) [#/Vol] 9 % [facility] Body fluid segmented neutrop hils count (number/volume)Ordered By: John Short on 08-14-2022 Segmented neutrophils (Body fld) [#/Vol] 57 % [facility] Cytology report of Body flui d Cyto stainOrdered By: John Short on 08-14-2022 Cytology report Cyto stain Doc (Body fld) SEE PATHOLOGY REPORT [facility] Comment on above: Specimen submitted t o Anatomical Pathology Department for testing. Direct bilirubinOrdered By: John Short on 08-14-2022 Bilirubin.direct [Mass/Vol] 0.36 mg/dL 0.00-0.30 [facility] Gram stain for investigation of transfusion reactionOrdered By: John Short on 08-14-2022 Microscopic observation Gram stain Nom (Unsp spec) [facility] Mononuclear cells Auto (Body fld) [#/Vol]Ordered By: John Short on 08-14-2022 Mononuclear cells (Body fld) [#/Vol] 0.989 10*3/uL [facility] No Panel InformationOrdered By: John Short on 08-14-2022 Body Fluid Comment 2 SEE COMMENT [facility] Body Fluid Mononuclear WBCs (%) 20.1 % [facility] Body Fluid Pathologist Comment May follow [facility] Body Fluid Pathologist Comment Reviewed [facility] Comment on above: Previous reported re sult: May follow Edited by: RGOYOMAIRA on 08/18/22:46Negative for malignant cells.Wilner Dowd M.D. 08/18/22 AMENDED REPORT 08/18/22 0946 PATH COMM/BF previously reported as: May follow Body Fluid Polynuclear WBCs (#) 3.936 10^3/uL [facility] Body Fluid Polynuclear WBCs (%) 79.9 % [facility] No Panel InformationOrdered By: Tamiko Quigley on 08-14-2022 CA 125 Antigen 15.4 U/mL 0.0-38.1 [facility] Comment on above: [employer] El ectrochemiluminescence Immunoassay(ECLIA)Values obtained with different assay methods or kits cannotbe used interchangeably. Results cannot be interpreted asabsolute evidence of the presence or absence of malignantdisease.Performed at: [address] [id number] Director: Avni Valles PhD, Phone: [phone] CA 19-9 Antigen < 2 U/mL 0-35 [facility] Comment on above: [employer] El ectrochemiluminescence Immunoassay(ECLIA)Values obtained with different assay methods or kits cannotbe used interchangeably. Results cannot be interpreted asabsolute evidence of the presence or absence of malignantdisease. Serum or plasma carcinoembry onic antigen measurement (mass/volume)Ordered By: Tamiko Quigley on 08-14-2022 Carcinoembryonic Ag [Mass/Vol] 3.0 ng/mL 0.0-4.7 [facility] Comment on above: Nonsmokers <3.9 Smok ers <5.6[employer] Electrochemiluminescence Immunoassay(ECLIA)Values obtained with different assay methods or kitscannot be used interchangeably. Results cannot beinterpreted as absolute evidence of the presence orabsence of malignant disease. Specimen source identificati on of body fluidOrdered By: John Short on 08-14-2022 Specimen source Nom (Body fld) THORACENTESIS [facility] Thin prep Papanicolaou smear with manual screeningOrdered By: John Short on 08-14-2022 Thin prep Papanicolaou smear with manual screening 24 % [facility] Total cell countOrdered By: John Short on 08-14-2022 Cells counted [employer] (Bld/Tiss) [#] 5.366 10^3/ul 0.000-0.000 [facility] Comment on above: This is the Total Nu mber of Nucleated Cell Types in the Body Fluid. Amorphous sediment detection in urine sediment by light microscopyOrdered By: John Short on 08-13-2022 Amorphous sediment LM Ql (Urine sed) 1+ URATE [facility] Basophil percentageOrdered B y: John Short on 08-13-2022 LDH [Catalytic activity/Vol] 280 U/L 84-246 [facility] Basophil percentage 0-5 SEEN /hpf 0-5 [facility] Bilirubin Test strip Ql (U)O rdered By: John Short on 08-13-2022 Bilirubin Ql (U) Negative Negative [facility] Body fluid lactate dehydroge nase measurement (enzymatic activity/volume) by pyruvateOrdered By: John Short on 08-13-2022 LDH Pyruvate to lactate reaction (Body fld) [Catalytic activity/Vol] 475 Units/l Not Establ. [facility] Body fluid protein measureme nt (mass/volume)Ordered By: John Short on 08-13-2022 Protein (Body fld) [Mass/Vol] 2.6 g/dL Not Establ. [facility] INR in Blood by Coagulation assayOrdered By: John Short on 08-13-2022 INR Coag (Bld) [Relative time] 1.1 {INR} [facility] Ketones Test strip Ql (U)Ord ered By: John Short on 08-13-2022 Ketones Ql (U) Negative Negative [facility] Laboratory - CoagulationOrde red By: John Short on 08-13-2022 aPTT Coag (Bld) [Time] 31.5 s 24.1-36.2 [facility] PT Coag (PPP) [Time] 14.1 s 11.7-14.9 [facility] Mucus LM Ql (Urine sed)Order ed By: John Short on 08-13-2022 Mucus Ql (Urine sed) 0 SEEN /hpf [facility] Nitrite Test strip Ql (U)Ord ered By: John Short on 08-13-2022 Nitrite Ql (U) Negative Negative [facility] No Panel InformationOrdered By: John Short on 08-13-2022 Body Fluid Glucose 149 mg/dL 40-70 [facility] No Panel InformationOrdered By: Kanwal Aguilar on 08-13-2022 Troponin I High Sensitivity 14 pg/mL 3.0-54.0 [facility] Comment on above: Please Note: New [place] t Units and Gender Specific Reference Ranges. For more information see Policy Stat Procedure [facility] High Sensitivity Troponin (TNIH) and attachments. Protein Test strip Ql (U)Ord ered By: John Short on 08-13-2022 Protein Ql (U) 15 mg/dl Negative [facility] Squamous epithelial cells de tection in urine sediment by light microscopyOrdered By: John Short on 08-13-2022 Epithelial cells.squamous LM Ql (Urine sed) 0-5 SEEN /hpf 5-10 [facility] Urine blood detectionOrdered By: John Short on 08-13-2022 RBC Ql (U) Negative Negative [facility] RBC Ql (U) 0 SEEN /hpf 0-5 [facility] Urine clarityOrdered By: Celena Short on 08-13-2022 Clarity (U) Clear Clear [facility] Urine color determinationOrd ered By: John Short on 08-13-2022 Color (U) Yellow Yellow [facility] Urine glucose detectionOrder ed By: John Short on 08-13-2022 Glucose Ql (U) 50 mg/dl Normal [facility] Urine leukocyte esterase det ection by dipstickOrdered By: John Short on 08-13-2022 Leukocyte esterase Test strip Ql (U) 25 /ul Negative [facility] Urine pHOrdered By: John Howard on 08-13-2022 pH (U) 6.0 [pH] 5.0 - 8.0 [facility] Urine sediment bacteria coun t by microscopy (number/high power field)Ordered By: John Short on 08-13-2022 Bacteria LM.HPF (Urine sed) [#/Area] RARE /hpf None Seen [facility] Urine sediment renal epithel ial cell count by microscopy (number/high power field)Ordered By: John Short on 08-13-2022 Epithelial cells.renal LM.HPF (Urine sed) [#/Area] 0 /[HPF] 0-5 [facility] Urine specific gravity measu rementOrdered By: John Short on 08-13-2022 Specific gravity (U) [Rel density] 1.015 1.002-1.030 [facility] Urobilinogen Auto test strip Ql (U)Ordered By: John Short on 08-13-2022 Urobilinogen Ql (U) Normal mg/dl Normal [facility] Basophil percentageOrdered B y: Home Valverde on 08-08-2022 Cholesterol [Mass/Vol] 122 mg/dL <200 [facility] Comment on above: <200 mg/dL Desirable 200-240 mg/dL Borderline >240 mg/dL High Risk Triglyceride [Mass/Vol] 151 mg/dL <199 [facility] Comment on above: The drugs N-Acetylcy steine and Metamizole may falsely depress this assay.Serum Triglycerides Reference Interval Normal <150 mg/dL Borderline high 150 - 199 mg/dL High 200 - 499 mg/dL Very High > or = 500 mg/dL Serum or plasma cholesterol in HDL measurement (mass/volume)Ordered By: Home Valverde on 08-08-2022 Cholesterol in HDL [Mass/Vol] 35 mg/dL >40 [facility] Comment on above: The drugs N-Acetylcy steine and Metamizole may falsely depress this assay. Reference Range HDL <40 mg/dL Low HDL Cholesterol HDL >or= 60 mg/dL High HDL Cholesterol Serum or plasma cholesterol in VLDL measurement (mass/volume)Ordered By: Home Valverde on 08-08-2022 Cholesterol in VLDL [Mass/Vol] 30 mg/dL 5-40 [facility] Serum or plasma low density lipoprotein (LDL) cholesterol measurement (mass/volume)Ordered By: Home Valverde on 08-08-2022 Cholesterol in LDL [Mass/Vol] 57 mg/dL 0-130 [facility] Assessment of wrist artery p atency prior to arterial punctureOrdered By: John Short on 08-07-2022 Arterial patency Wrist artery --pre arterial puncture Positive [facility] Base excessOrdered By: John Short on 08-07-2022 Base excess Calc (BldV) [Moles/Vol] -2 mmol/L -2-2 [facility] Basophil percentageOrdered B y: Home Valverde on 08-07-2022 Lactate [Moles/Vol] 2.1 mmol/L 0.4-2.0 [facility] Comment on above: Critical Result(s) C alled at: 11:00:18 08/07/2022 by: Suma Cantu. Results read back by same. Ammonia (P) [Moles/Vol] 25.0 umol/L 11-32 [facility] Basophil percentageOrdered B y: John Short on 08-07-2022 Basophil percentage 20.7 mmol/L 22- [facility] Basophils/100 WBC (Bld) 89 % 95-99 [facility] CO2 (BldA) [Partial pressure ]Ordered By: John Short on 08-07-2022 CO2 (Bld) [Partial pressure] 23.9 mm[Hg] 35-45 [facility] Culture, urineOrdered By: Angelica Valverde on 08-07-2022 Bacteria identified Cx Nom (U) Culture exhibits no growth. [facility] Laboratory - Microbiology an d Antimicrobial susceptibilityOrdered By: Home Valverde on 08-07-2022 Bacteria identified Cx Nom (Bld) No growth in 5 days. [facility] No Panel InformationOrdered By: John Short on 08-07-2022 Blood Gas Sample Site L Radial [facility] Blood Gas Specimen Type ART [facility] Blood Gas Total CO2 21 mmol/L [facility] Oxygen (BldA) [Partial press ure]Ordered By: John Short on 08-07-2022 Oxygen (Bld) [Partial pressure] 47 mmHG 75-100 [facility] Review by pathologistOrdered By: Dereck Ramirez on 08-07-2022 Pathologist review Minesh (Unsp spec) [Interp] Reviewed [facility] Comment on above: Previous reported re sult: Shellie hollis Edited by: RGOYOMAIRA on 08/07/22:1303Neutrophilic leukocytosis.Normocytic anemia.Clinical correlation necessary.Wilner Dowd M.D. 08/07/22 AMENDED REPORT 08/07/22 1303 PATH REV previously reported as: Shellie hollis pH measurementOrdered By: Elliot Short on 08-07-2022 pH (Unsp spec) 7.55 [pH] 7.35-7.45 [facility] Absolute lymphocyte countOrd ered By: Monica Alvarado on 08-05-2022 Lymphocytes Auto (Unsp spec) [#/Vol] 0.97 10*3/uL 0.83-4.51 [facility] Basophil percentageOrdered B y: Monica Alvarado on 08-05-2022 Basophils/100 WBC (Bld) 0.2 % 0-1 [facility] Chloride [Moles/Vol] 110 mmol/L 98-107 [facility] Eosinophils/100 WBC (Bld) 0.2 % 0-5 [facility] Glucose [Mass/Vol] 150 mg/dL 74-106 [facility] Comment on above: Fasting Glucose resu lt greater than or equal to 126 mg/dL suggests DIABETES MELLITUS per A.D.A. criteria. Neutrophils (Bld) [#/Vol] 14.5 10*3/uL 2.0-7.7 [facility] Neutrophils/100 WBC (Bld) 89.8 % 47-70 [facility] Potassium [Moles/Vol] 4.0 mmol/L 3.5-5.1 [facility] Sodium [Moles/Vol] 139 mmol/L 136-145 [facility] WBC (Bld) [#/Vol] 16.1 10*3/uL 4.4-11.0 [facility] Basophil percentageOrdered B y: Dr. Ramirez on 08-05-2022 Bilirubin [Mass/Vol] 0.70 mg/dL 0.20-1.00 [facility] Comment on above: For patients on eltr ombopag therapy, use of Dimension [facility] TBIL is not recommended. Protein [Mass/Vol] 6.9 g/dL 6.4-8.2 [facility] Blood erythrocytes count (nu mber/volume)Ordered By: Monica Alvarado on 08-05-2022 RBC (Bld) [#/Vol] 4.16 10*6/uL 4.2-5.4 [facility] Blood hemoglobin measurement (mass/volume)Ordered By: Monica Alvarado on 08-05-2022 Hemoglobin (Bld) [Mass/Vol] 12.3 g/dL 12.0-15.0 [facility] Blood lymphocytes/100 leukoc ytesOrdered By: Monica Alvarado on 08-05-2022 Lymphocytes/100 WBC (Bld) 6.0 % 19-41 [facility] Blood monocytes/100 leukocyt esOrdered By: Monica Alvarado on 08-05-2022 Monocytes/100 WBC (Bld) 3.2 % 0-10 [facility] Blood platelet mean volumeOr dered By: Monica Alvarado on 08-05-2022 Platelet mean volume (Bld) [Entitic vol] 9.9 fL 6.2-12.0 [facility] Determination of erythrocyte mean corpuscular volume (MCV)Ordered By: Monica Alvarado on 08-05-2022 MCV (RBC) [Entitic vol] 93.8 fL 81-99 [facility] Hematocrit Auto (Bld) [Volum e fraction]Ordered By: Monica Alvarado on 08-05-2022 Hematocrit (Bld) [Volume fraction] 39.0 % 37-47 [facility] INR in Blood by Coagulation assayOrdered By: Monica lAvarado on 08-05-2022 INR Coag (Bld) [Relative time] 1.1 {INR} [facility] Laboratory - Chemistry and C hemistry - challengeOrdered By: Dr. Ramirez on 08-05-2022 ALP [Catalytic activity/Vol] 77 U/L 45-117 [facility] ALT [Catalytic activity/Vol] 20 U/L 13-56 [facility] Globulin (S) [Mass/Vol] 3.3 g/dL 2.2-4.2 [facility] Laboratory - Chemistry and C hemistry - challengeOrdered By: Monica Alvarado on 08-05-2022 CO2 [Moles/Vol] 23.0 mmol/L 21.0-32.0 [facility] Urea nitrogen/Creatinine [Mass ratio] 19.4 mg/mg 10-20 [facility] Laboratory - CoagulationOrde red By: Monica Alvarado on 08-05-2022 PT Coag (PPP) [Time] 14.3 s 11.7-14.9 [facility] Laboratory - Hematology and Cell countsOrdered By: Monica Alvarado on 08-05-2022 Erythrocyte distribution width (RBC) [Entitic vol] 42.2 fL 35.1-43.9 [facility] Erythrocyte distribution width (RBC) [Ratio] 12.1 % 11.6-14.6 [facility] Immature granulocytes/100 WBC (Bld) 0.600 % 0.0-0.9 [facility] Comment on above: IG% - Immature Granu locytes (promyelocytes, myelocytes and metamyelocytes) > 1% indicates that a LEFT SHIFT is Present. MCH (RBC) [Entitic mass] 29.6 pg 27.0-32.0 [facility] Nucleated RBC/100 WBC (Bld) [Ratio] 0 % 0-5 [facility] MCHC Auto (RBC) [Mass/Vol]Or dered By: Monica Alvarado on 08-05-2022 MCHC (RBC) [Mass/Vol] 31.5 g/dL 32-36 [facility] No Panel InformationOrdered By: Dereck Ramirez on 08-05-2022 Vitamin D 25-Hydroxy 99.6 ng/mL [facility] Comment on above: Vitamin D 25(OH) Sta tus Range Deficiency <20 ng/mL (50nmol/L) Insufficiency 20 - 30 ng/mL (50 - 75 nmol/L) Sufficiency 30 - 100 ng/mL (75 - 250 nmol/L) Toxicity >100 ng/mL (>250 nmol/L) No Panel InformationOrdered By: Monica Alvarado on 08-05-2022 Estimated Creatinine Clearance Calc 45.14 ml/min [facility] Estimated GFR (MDRD) Amer 68 mL/min >60 [facility] Comment on above: GFR Calc Estimated GFR (MDRD) Non-Af Amer 57 mL/min >60 [facility] Comment on above: Non- GFR Calc Platelets bldOrdered By: Kadie Alvarado on 08-05-2022 Platelets (Bld) [#/Vol] 248 10*3/uL 150-450 [facility] Serum or plasma albumin timbo urement (mass/volume)Ordered By: Dr. Ramirez on 08-05-2022 Albumin [Mass/Vol] 3.6 g/dL 3.2-5.0 [facility] Serum or plasma albumin/glob ulin mass ratioOrdered By: Dr. Ramirez on 08-05-2022 Albumin/Globulin [Mass ratio] 1.1 {ratio} 0.9-2.4 [facility] Serum or plasma calcium timbo urement (mass/volume)Ordered By: Monica Alvarado on 08-05-2022 Calcium [Mass/Vol] 9.1 mg/dL 8.5-10.1 [facility] Serum or plasma creatinine m easurement (mass/volume)Ordered By: Monica Alvarado on 08-05-2022 Creatinine [Mass/Vol] 1.03 mg/dL 0.55-1.02 [facility] Comment on above: The validity of the calculated GFR & GFRAA in patients over 70 years has not been determined. Clinical correlation is essential. Serum or plasma urea nitroge n measurement (mass/volume)Ordered By: Monica Alvarado on 08-05-2022 Urea nitrogen [Mass/Vol] 20 mg/dL 7-18 [facility] Thin prep Papanicolaou smear with manual screeningOrdered By: Dr. Ramirez on 08-05-2022 Thin prep Papanicolaou smear with manual screening 18 U/L 15-37 [facility] Thin prep Papanicolaou smear with manual screeningOrdered By: Monica Alvarado on 08-05-2022 Thin prep Papanicolaou smear with manual screening 6 5-15 [facility] Absolute lymphocyte countOrd ered By: Rudy Boyer on 07-13-2022 Lymphocytes Auto (Unsp spec) [#/Vol] 3.03 10*3/uL 0.83-4.51 [facility] Basophil percentageOrdered B y: Rudy Boyer on 07-13-2022 Basophils/100 WBC (Bld) 0.3 % 0-1 [facility] Bilirubin [Mass/Vol] 0.40 mg/dL 0.20-1.00 [facility] Comment on above: For patients on eltr ombopag therapy, use of Dimension Jackson TBIL is not recommended. Chloride [Moles/Vol] 109 mmol/L 98-107 [facility] Cholesterol [Mass/Vol] 122 mg/dL <200 [facility] Comment on above: <200 mg/dL Desirable 200-240 mg/dL Borderline >240 mg/dL High Risk Eosinophils/100 WBC (Bld) 3.0 % 0-5 [facility] Glucose [Mass/Vol] 161 mg/dL 74-106 [facility] Comment on above: Fasting Glucose resu lt greater than or equal to 126 mg/dL suggests DIABETES MELLITUS per A.D.A. criteria. Neutrophils (Bld) [#/Vol] 5.2 10*3/uL 2.0-7.7 [facility] Neutrophils/100 WBC (Bld) 57.5 % 47-70 [facility] Potassium [Moles/Vol] 3.8 mmol/L 3.5-5.1 [facility] Protein [Mass/Vol] 7.3 g/dL 6.4-8.2 [facility] Sodium [Moles/Vol] 141 mmol/L 136-145 [facility] Triglyceride [Mass/Vol] 103 mg/dL <199 [facility] Comment on above: The drugs N-Acetylcy steine and Metamizole may falsely depress this assay.Serum Triglycerides Reference Interval Normal <150 mg/dL Borderline high 150 - 199 mg/dL High 200 - 499 mg/dL Very High > or = 500 mg/dL WBC (Bld) [#/Vol] 9.1 10*3/uL 4.4-11.0 [facility] Blood erythrocytes count (nu mber/volume)Ordered By: Rudy Boyer on 07-13-2022 RBC (Bld) [#/Vol] 4.34 10*6/uL 4.2-5.4 [facility] Blood hemoglobin measurement (mass/volume)Ordered By: Rudy Boyer on 07-13-2022 Hemoglobin (Bld) [Mass/Vol] 13.0 g/dL 12.0-15.0 [facility] Blood lymphocytes/100 leukoc ytesOrdered By: Rudy Boyer on 07-13-2022 Lymphocytes/100 WBC (Bld) 33.3 % 19-41 [facility] Blood monocytes/100 leukocyt esOrdered By: Rudy Boyer on 07-13-2022 Monocytes/100 WBC (Bld) 5.6 % 0-10 [facility] Blood platelet mean volumeOr dered By: Rudy Boyer on 07-13-2022 Platelet mean volume (Bld) [Entitic vol] 9.8 fL 6.2-12.0 [facility] Determination of erythrocyte mean corpuscular volume (MCV)Ordered By: Rudy Boyer on 07-13-2022 MCV (RBC) [Entitic vol] 94.0 fL 81-99 [facility] Hematocrit Auto (Bld) [Volum e fraction]Ordered By: Rudy Boyer on 07-13-2022 Hematocrit (Bld) [Volume fraction] 40.8 % 37-47 [facility] Laboratory - Chemistry and C hemistry - challengeOrdered By: Rudy Boyer on 07-13-2022 ALP [Catalytic activity/Vol] 88 U/L 45-117 [facility] ALT [Catalytic activity/Vol] 21 U/L 13-56 [facility] CO2 [Moles/Vol] 24.0 mmol/L 21.0-32.0 [facility] Globulin (S) [Mass/Vol] 3.6 g/dL 2.2-4.2 [facility] Urea nitrogen/Creatinine [Mass ratio] 24.1 mg/mg 10-20 [facility] Laboratory - Hematology and Cell countsOrdered By: Rudy Boyer on 07-13-2022 Erythrocyte distribution width (RBC) [Entitic vol] 42.7 fL 35.1-43.9 [facility] Erythrocyte distribution width (RBC) [Ratio] 12.3 % 11.6-14.6 [facility] Immature granulocytes/100 WBC (Bld) 0.300 % 0.0-0.9 [facility] Comment on above: IG% - Immature Granu locytes (promyelocytes, myelocytes and metamyelocytes) > 1% indicates that a LEFT SHIFT is Present. MCH (RBC) [Entitic mass] 30.0 pg 27.0-32.0 [facility] Nucleated RBC/100 WBC (Bld) [Ratio] 0 % 0-5 [facility] MCHC Auto (RBC) [Mass/Vol]Or dered By: Rudy Boyer on 07-13-2022 MCHC (RBC) [Mass/Vol] 31.9 g/dL 32-36 [facility] No Panel InformationOrdered By: Rudy Boyer on 07-13-2022 Estimated GFR (MDRD) Amer 62 mL/min >60 [facility] Comment on above: GFR Calc Estimated GFR (MDRD) Non-Af Amer 51 mL/min >60 [facility] Comment on above: Non- GFR Calc Vitamin D 25-Hydroxy 102.8 ng/mL [facility] Comment on above: Vitamin D 25(OH) [...] 07-13-2022 Platelets (Bld) [#/Vol] 307 10*3/uL 150-450 [facility] Serum or plasma albumin timbo urement (mass/volume)Ordered By: Rudy Boyer on 07-13-2022 Albumin [Mass/Vol] 3.7 g/dL 3.2-5.0 [facility] Serum or plasma albumin/glob ulin mass ratioOrdered By: Rudy Boyer on 07-13-2022 Albumin/Globulin [Mass ratio] 1.0 {ratio} 0.9-2.4 [facility] Serum or plasma calcium timbo urement (mass/volume)Ordered By: Rudy Boyer on 07-13-2022 Calcium [Mass/Vol] 8.7 mg/dL 8.5-10.1 [facility] Serum or plasma cholesterol in HDL measurement (mass/volume)Ordered By: Rudy Boyer on 07-13-2022 Cholesterol in HDL [Mass/Vol] 46 mg/dL >40 [facility] Comment on above: The drugs N-Acetylcy steine and Metamizole may falsely depress this assay. Reference Range HDL <40 mg/dL Low HDL Cholesterol HDL >or= 60 mg/dL High HDL Cholesterol Serum or plasma cholesterol in VLDL measurement (mass/volume)Ordered By: Rudy Boyer on 07-13-2022 Cholesterol in VLDL [Mass/Vol] 21 mg/dL 5-40 [facility] Serum or plasma creatinine m easurement (mass/volume)Ordered By: Rudy Boyer on 07-13-2022 Creatinine [Mass/Vol] 1.12 mg/dL 0.55-1.02 [facility] Comment on above: The validity of the calculated GFR & GFRAA in patients over 70 years has not been determined. Clinical correlation is essential. Serum or plasma low density lipoprotein (LDL) cholesterol measurement (mass/volume)Ordered By: Rudyjody Boyer on 07-13-2022 Cholesterol in LDL [Mass/Vol] 55 mg/dL 0-130 [facility] Serum or plasma urea nitroge n measurement (mass/volume)Ordered By: Rudy Boyer on 07-13-2022 Urea nitrogen [Mass/Vol] 27 mg/dL 7-18 [facility] Thin prep Papanicolaou smear with manual screeningOrdered By: Rudy Boyer on 07-13-2022 Thin prep Papanicolaou smear with manual screening 17 U/L 15-37 [facility] Thin prep Papanicolaou smear with manual screening 8 5-15 [facility] ANES Sen 04-16-2018 ANES POST HNO ID: [id number] Author: Dieter Gross Service: Anesthesiology Author Type: [...] 16, 2018 TIME: 12:30 PM PAGER/CONTACT #: [phone] [facility] ANES PREOPon 04-16-2018 ANES PREOP HNO ID: [id number] Author: Dieter Gross Service: Anesthesiology Author Type: [...] Height as of 03/07/18: 163.8 cm (5' 4.5"). Weight as of 04/10/18: 84.4 kg (186 [...] follows with DR. LINDSEY - Morbid obesity ([facility]) since quit smoking - Osteopenia - Type II or unspecified type diabetes mellitus without mention of complication, not stated as uncontrolled late 40's - Unspecified essential hypertension late 40's - Unspecified urinary incontinence late urgency AND [...] April 16, 2018 TIME: 7:10 AM CSN: [id number] Normal [facility] HISTORY PHYSICALon HISTORY PHYSICAL HNO ID: [id number] Author: Regina Chopra Service: Pain Management Author [...] DATE: April 16, 2018 TIME: 7:35 AM [facility] NURSING PROGon 04-16-2018 Protein mass conc HNO ID: [id number] Author: Gissel ZazuetaRn) HAMILTON Banegas Service: Nursing Author Type: Registered Nurse Type: Nursing Progress Note Filed: 04/16/2018 10:52 AM Note Text: Nursing Progress Note Patient Name: Donna Marsh [place] [facility] 1050 Pt received in ASCU on cart from PACU. Snack given. This note was completed by: Gissel Banegas RN [facility] Protein mass conc HNO ID: [id number] Author: Fátima ZazuetaRn) HAMILTON Lopez Service: Nursing Author Type: Registered Nurse Type: Nursing Progress Note Filed: 04/16/2018 10:32 AM Note Text: Dr. Gross made aware of pt blood pressure said pt took her blood pressure meds she is alert on c/o dissiness ok to go to phase 2 96/46. [facility] Protein mass conc HNO ID: [id number] Author: Fátima (Rn) HAMILTON Lopez Service: Nursing Author Type: Registered Nurse Type: Nursing Progress Note Filed: 04/16/2018 10:27 AM Note Text: Dr. Chopra aware of pt blood pressure 90/47 said to watch a little while longer before going to Phase 2. [facility] Protein mass conc HNO ID: [id number] Author: Amy (Rn) HAMILTON Crump Service: ? Author Type: Registered Nurse Type: Nursing Progress Note Filed: 04/16/2018 8:11 AM Note Text: @ 0653 Pt received to ASCU, ambulatory slowly with a wheeled walker. Pt pleasant AND cooperative with care. @ 0800 Ready for OR - @ bedside. [facility] OPERATIVE NOon 04-16-2018 OPERATIVE NO HNO ID: [id number] Author: Regina Chopra Service: Pain Management Author [...] initiated by the anesthesia team.. An operative "Time-Out" was performed and agreed to by the [...] DATE: April 16, 2018 TIME: 9:25 AM [facility] PT EDon 04-16-2018 PT ED HNO ID: [id number] Author: Jesús (Rn) HAMILTON Cannon Service: Nursing Author Type: Registered Nurse Type: [...] Signed By: Jesús Cannon RN In Department: [facility] SURGERY [facility] PT ED HNO ID: [id number] Author: Amy (Rn) HAMILTON Crump Service: ? [...] Signed By: Amy Crump RN In Department: [facility] SURGERY [facility] XR FLUOROSCOPYon 04-16-2018 XR FLUOROSCOPY * * *Final Report* * * DATE OF EXAM: Apr 16 2018 9:30AM MDR [id number] - XR FLUOROSCOPY / PROCEDURE REASON: PAIN - KYPHOPLASTY LUMBAR * * * * Physician Interpretation * * * * INDICATION: PAIN - KYPHOPLASTY LUMBAR TECHNIQUE: Fluoroscopy with 2 views of the L5 vertebra Fluoroscopic Radiation Summary: Plane A, Air Kerma: 125.6 mGy Dose Area Product (DAP): 26870.5 mGy*cmS2 Fluoro time: 4:28 min:sec FINDINGS/ IMPRESSION: Images were obtained after vertebral augmentation of L5. Cement is present within the vertebra. Please refer to the performing LIP's report. [employer]: [employer] Transcribe Date/Time: Apr 16 2018 12:08P Dictated by : AZAEL PARRA MD This examination was interpreted and the report reviewed and electronically signed by: AZAEL PARRA MD on Apr 16 2018 12:08PM EST [id number] [facility] HOSPon 04-10-2018 HOSP Patient:Donna Marsh MRN: Height:5' 4"(1.626 m) Weight:186 lb (84.369 kg) Outpatient Medications [...] the following basenames: K,HCT Progress Notes ([facility]): Regina Chopra MD 04/10/2018 1:33 PM Signed [facility] NOTE DATE: April 10, 2018 Chief Complaint: chronic lower back and right lower extremity SUBJECTIVE: Ms. Marsh presents to the [facility] ([facility]) office for a follow up appointment regarding [...] She is currently receiving medications through the [facility]. She is not having difficulty with her [facility] medications. The medications are effective. The patient [...] late 40s - Unspecified urinary incontinence late s urgency AND stress-induced PAST SURGICAL HISTORY Procedure [...] Urine pH, Pain [place] 4-10 07/03/2016 Specific Bude,Ur Pain [place] 1.005-1.020 07/03/2016 Oxidants,Ur Negative 07/03/2016 [...] record for those providers who practice within [facility] or with access to [employer] via [employer], or via letter. Previous Version Progress Notes ([facility]): Yolanda Ramirez MA 04/02/2018 2:15 PM [...] to call office to schedule appointment. Yolande Shira 04/03/2018 3:45 PM Signed Patient coming in for MRI results - 04/08/18 [facility] MRI LUMBAR SPINE WO IVCONon 03-27-2018 MRI LUMBAR SPINE WO IVCON * * *Final Report* * * DATE OF EXAM: Mar 27 2018 10:28AM [facility] 0303 - MRI LUMBAR SPINE WO IVCON [...] on Mar 27 2018 10:59AM EST [id number] [facility] MRI THORACIC SPINE WO IVCONo n 03-27-2018 MRI THORACIC SPINE WO IVCON * * *Final Report* * * DATE OF EXAM: Mar 27 2018 10:28AM [facility] 0325 - MRI THORACIC SPINE WO IVCON [...] on Mar 27 2018 11:17AM EST [id number] Normal [facility] NURSING PROGon 03-08-2018 Protein mass conc HNO ID: [id number] Author: Tiana (Rn) HAMILTON Munson Service: Nursing Author Type: Registered Nurse Type: [...] Comment: NSR, Low voltage QRS scanned in [facility] on 03/07/17 Heart Cath Date: 01/07/18 Comment: in Care Everywhere Last Menstrual Period: LMP Date: N/A Postmenopausal >1yr: Yes, S/P Hysterectomy: Yes BMI Percentile (PEDS): N/A BMI 32.1 Risk Assessment: CONSULTS: Dr Hayes for recent cardiac notes and FU after hospitalization--F/U 01/25/2018 Notes in Care Everywhere Anesthesia Review: 12/2017 hospitalized in [facility] 3-4 days for Takotsubo cardiomyopathy, cath done and no CAD. Following with Dr Hayes, recently feeling OK. Narrative: Takotsubu cardiomyopathy Pre-op Considerations: HX DM- oral med Chart Check: COMPLETED Tiana Munson RN March 08, 2018 8:02 AM [facility] HISTORY PHYSICALon 9 HISTORY PHYSICAL HNO ID: [id number] Author: Jen Bermudez (Pa) Service: (none) Author Type: Physician Twister Tender Paper Type: HANDP Filed: 03/08/2018 10:07 AM Note [...] Encounter for Closed Fracture (Hcc) Takotsubo Cardiomyopathy Subjective CHIEF COMPLAINT: back pain [...] late s - Unspecified essential hypertension late 40's - Unspecified urinary incontinence late urgency AND [...] HISTORY: Social History Marital status: Spouse name: [facility] Years of education: 13 Number of children: [...] Hypertension, Valvular Heart Disease, 01/05/2018 hospitalized in [facility] 3-4 days for Chest pressure and essential NL cath and echo determined Takotsubo cardiomyopathy, EF 40%cath done and no CAD. Followed with Dr Hayes 01/25/18 and repeat echo in 3-4 months, recently feeling OK., Negative for Arrhythmia, DVT/PE GI: Positive for GERD, Negative for PUD, Liver disease, Pancreatitis, IBS : Urge and FRIEDA- on rx, GFR 09/2017 45 GFR 52 (12/2017) MLT: Negative for abnormal vaginal bleeding, abnormal vaginal [...] (Src) 98.6 (Tympanic) Resp 16 Ht 5' 4.5" (1.64m) Wt 190 lb (86.2kg) SpO2 94% [...] 07, 2018 TIME: 3:44 PM PAGER/CONTACT #: [facility] Vital Signs Date Time Vital Sign Value Performing Clinician Facility 11-14-2024 14:28-0400 Body temperature 97.3 [degF] Rudy LINDERC Work Phone: [facility] 11-14-2024 14:28-0400 Diastolic blood pressure 66 mm[Hg] Rudy Boyer NP-C Work Phone: [facility] 11-14-2024 14:28-0400 Heart rate 89 /min Rudy Sharla TRAUMA COORDINATOR-C Work Phone: [facility] 11-14-2024 14:28-0400 Respiratory rate 17 /min Rudy Sharla TRAUMA COORDINATOR-C Work Phone: [facility] 11-14-2024 14:28-0400 SaO2% (BldA) [Mass fraction] 98 % Rudy Sharla TRAUMA COORDINATOR-C Work Phone: [facility] 11-14-2024 14:28-0400 Systolic blood pressure 156 mm[Hg] Rudy Sharla TRAUMA COORDINATOR-C Work Phone: [facility] 11-14-2024 06:00-0400 Body mass index (BMI) [Ratio] 24.7 kg/m2 Rudy Sharla TRAUMA COORDINATOR-C Work Phone: [facility] 11-14-2024 06:00-0400 Body weight 65.7 kg Ruyd Sharla TRAUMA COORDINATOR-C Work Phone: [facility] 11-12-2024 04:07-0400 Body temperature 98 [degF] Rudy Sharla TRAUMA COORDINATOR-C Work Phone: [facility] 11-12-2024 04:07-0400 Diastolic blood pressure 84 mm[Hg] Rudy Sharla TRAUMA COORDINATOR-C Work Phone: [facility] 11-12-2024 04:07-0400 Heart rate 91 /min Rudy Sharla TRAUMA COORDINATOR-C Work Phone: [facility] 11-12-2024 04:07-0400 Respiratory rate 18 /min Rudy Sharla TRAUMA COORDINATOR-C Work Phone: [facility] 11-12-2024 04:07-0400 SaO2% (BldA) [Mass fraction] 98 % Rudy Sharla TRAUMA COORDINATOR-C Work Phone: [facility] 11-12-2024 04:07-0400 Systolic blood pressure 158 mm[Hg] Rudy Sharla TRAUMA COORDINATOR-C Work Phone: [facility] 11-12-2024 03:29-0400 Body mass index (BMI) [Ratio] 23.8 kg/m2 Rudy Sharla TRAUMA COORDINATOR-C Work Phone: [facility] 11-12-2024 03:29-0400 Body weight 63.2 kg Rudy Sharla TRAUMA COORDINATOR-C Work Phone: [facility] 11-11-2024 11:48-0400 Body height 162.56 cm Rudy Sharla TRAUMA COORDINATOR-C Work Phone: [facility] 09-05-2024 14:53-0400 Body temperature 97.7 [degF] Rudy Sharla TRAUMA COORDINATOR-C Work Phone: [facility] 09-05-2024 14:53-0400 Diastolic blood pressure 77 mm[Hg] Rudy Sharla TRAUMA COORDINATOR-C Work Phone: [facility] 09-05-2024 14:53-0400 Heart rate 80 /min Rudy Sharla TRAUMA COORDINATOR-C Work Phone: [facility] 09-05-2024 14:53-0400 Respiratory rate 16 /min Rudy Sharla TRAUMA COORDINATOR-C Work Phone: [facility] 09-05-2024 14:53-0400 SaO2% (BldA) [Mass fraction] 94 % Rudy Sharla TRAUMA COORDINATOR-C Work Phone: [facility] 09-05-2024 14:53-0400 Systolic blood pressure 137 mm[Hg] Rudy Sharla TRAUMA COORDINATOR-C Work Phone: [facility] 09-05-2024 04:12-0400 Body mass index (BMI) [Ratio] 25.7 kg/m2 Rudy Sharla TRAUMA COORDINATOR-C Work Phone: [facility] 09-05-2024 04:12-0400 Body weight 66 kg Rudy Sharla TRAUMA COORDINATOR-C Work Phone: [facility] 09-04-2024 13:22-0400 Body height 160.02 cm Rudy Sharla TRAUMA COORDINATOR-C Work Phone: [facility] 09-02-2024 08:08-0400 Inhaled oxygen flow rate 2 L/min Rudy Sharla TRAUMA COORDINATOR-C Work Phone: [facility] 09-01-2024 03:00-0400 Body temperature 99.6 [degF] Rudy Sharla TRAUMA COORDINATOR-C Work Phone: [facility] 09-01-2024 03:00-0400 Diastolic blood pressure 78 mm[Hg] Rudy Sharla TRAUMA COORDINATOR-C Work Phone: [facility] 09-01-2024 03:00-0400 Heart rate 110 /min Rudy Sharla TRAUMA COORDINATOR-C Work Phone: [facility] 09-01-2024 03:00-0400 Respiratory rate 16 /min Rudy Sharla TRAUMA COORDINATOR-C Work Phone: [facility] 09-01-2024 03:00-0400 SaO2% (BldA) [Mass fraction] 98 % Rudy Sharla TRAUMA COORDINATOR-C Work Phone: [facility] 09-01-2024 03:00-0400 Systolic blood pressure 153 mm[Hg] Rudy Sharla TRAUMA COORDINATOR-C Work Phone: [facility] 09-01-2024 00:06-0400 Body height 160.02 cm Rudy Sharla TRAUMA COORDINATOR-C Work Phone: [facility] 09-01-2024 00:06-0400 Body mass index (BMI) [Ratio] 24.1 kg/m2 Rudy Sharla TRAUMA COORDINATOR-C Work Phone: [facility] 09-01-2024 00:06-0400 Body weight 61.8 kg Rudy Sharla TRAUMA COORDINATOR-C Work Phone: [facility] 08-11-2024 10:09-0400 Body mass index (BMI) [Ratio] 26.49 kg/m2 Jeromy Lai MD Work Phone: [facility] 08-11-2024 10:09-0400 Body temperature 97.5 [degF] Jeromy Lai MD Work Phone: [facility] 08-11-2024 10:09-0400 Body weight 65.5 kg Jeromy Lai MD Work Phone: [facility] 08-11-2024 10:09-0400 Diastolic blood pressure 72 mm[Hg] Jeromy Lai MD Work Phone: [facility] 08-11-2024 10:09-0400 Heart rate 70 /min Jeromy Lai MD Work Phone: [facility] 08-11-2024 10:09-0400 Respiratory rate 12 /min Jeromy Lai MD Work Phone: [facility] 08-11-2024 10:09-0400 SaO2% (BldA) [Mass fraction] 95 % Jeromy Lai MD Work Phone: [facility] 08-11-2024 10:09-0400 Systolic blood pressure 118 mm[Hg] Jeromy Lai MD Work Phone: [facility] 06-20-2024 11:33-0400 Body height 157.2 cm Regina Oden DO Work Phone: [facility] 06-20-2024 11:33-0400 Body mass index (BMI) [Ratio] 26.23 kg/m2 Regina Oden DO Work Phone: [facility] 06-20-2024 11:33-0400 Body temperature 97.3 [degF] Regina Oden DO Work Phone: [facility] 06-20-2024 11:33-0400 Body weight 64.86 kg Regina Oden DO Work Phone: [facility] 06-20-2024 11:33-0400 Diastolic blood pressure 75 mm[Hg] Regina Oden DO Work Phone: [facility] 06-20-2024 11:33-0400 Heart rate 77 /min Regina Broi DO Work Phone: [facility] 06-20-2024 11:33-0400 SaO2% (BldA) [Mass fraction] 99 % Regina Broi DO Work Phone: [facility] 06-20-2024 11:33-0400 Systolic blood pressure 129 mm[Hg] Regina Broi DO Work Phone: [facility] 05-19-2024 15:21-0400 Body temperature 98.3 [degF] Rudy Sharla TRAUMA COORDINATOR-C Work Phone: [facility] 05-19-2024 15:21-0400 Diastolic blood pressure 95 mm[Hg] Rudy Sharla TRAUMA COORDINATOR-C Work Phone: [facility] 05-19-2024 15:21-0400 Heart rate 99 /min Rudy Sharla TRAUMA COORDINATOR-C Work Phone: [facility] 05-19-2024 15:21-0400 Respiratory rate 18 /min Rudy Sharla TRAUMA COORDINATOR-C Work Phone: [facility] 05-19-2024 15:21-0400 SaO2% (BldA) [Mass fraction] 100 % Rudy Sharla TRAUMA COORDINATOR-C Work Phone: [facility] 05-19-2024 15:21-0400 Systolic blood pressure 170 mm[Hg] Rudy Sharla TRAUMA COORDINATOR-C Work Phone: [facility] 05-19-2024 09:54-0400 Body mass index (BMI) [Ratio] 28.3 kg/m2 Rudy Sharla TRAUMA COORDINATOR-C Work Phone: [facility] 05-19-2024 09:54-0400 Body weight 72.6 kg Rudy Sharla TRAUMA COORDINATOR-C Work Phone: [facility] 05-18-2024 02:25-0400 Diastolic blood pressure 76 mm[Hg] Rudy Sharla TRAUMA COORDINATOR-C Work Phone: [facility] 05-18-2024 02:25-0400 Systolic blood pressure 149 mm[Hg] Rudy Sharla TRAUMA COORDINATOR-C Work Phone: [facility] 05-18-2024 01:00-0400 Heart rate 108 /min Rudy Sharla TRAUMA COORDINATOR-C Work Phone: [facility] 05-18-2024 01:00-0400 Respiratory rate 24 /min Rudy Sharla TRAUMA COORDINATOR-C Work Phone: [facility] 05-18-2024 01:00-0400 SaO2% (BldA) [Mass fraction] 99 % Rudy Sharla TRAUMA COORDINATOR-C Work Phone: [facility] 05-17-2024 21:39-0400 Body mass index (BMI) [Ratio] 27.2 kg/m2 Rudy Sharla TRAUMA COORDINATOR-C Work Phone: [facility] 05-17-2024 21:39-0400 Body temperature 99 [degF] Rudy Sharla TRAUMA COORDINATOR-C Work Phone: [facility] 05-17-2024 21:39-0400 Body weight 69.7 kg Rudy Sharla TRAUMA COORDINATOR-C Work Phone: [facility] 05-17-2024 14:30-0400 Body temperature 97.9 [degF] Rudy Sharla TRAUMA COORDINATOR-C Work Phone: [facility] 05-17-2024 14:30-0400 Diastolic blood pressure 62 mm[Hg] Rudy Sharla TRAUMA COORDINATOR-C Work Phone: [facility] 05-17-2024 14:30-0400 Heart rate 89 /min Rudy Sharla TRAUMA COORDINATOR-C Work Phone: [facility] 05-17-2024 14:30-0400 Respiratory rate 16 /min Rudy Sharla TRAUMA COORDINATOR-C Work Phone: [facility] 05-17-2024 14:30-0400 SaO2% (BldA) [Mass fraction] 95 % Rudy Sharla TRAUMA COORDINATOR-C Work Phone: [facility] 05-17-2024 14:30-0400 Systolic blood pressure 115 mm[Hg] Rudy Sharla TRAUMA COORDINATOR-C Work Phone: [facility] 05-17-2024 04:36-0400 Body mass index (BMI) [Ratio] 27.8 kg/m2 Rudy Sharla TRAUMA COORDINATOR-C Work Phone: [facility] 05-17-2024 04:36-0400 Body weight 71.3 kg Rudy Sharla TRAUMA COORDINATOR-C Work Phone: [facility] 05-15-2024 14:22-0400 Body height 160.02 cm Rudy Sharla TRAUMA COORDINATOR-C Work Phone: [facility] 05-13-2024 22:00-0400 Body temperature 97.2 [degF] Rudy Sharla TRAUMA COORDINATOR-C Work Phone: [facility] 05-13-2024 22:00-0400 Diastolic blood pressure 114 mm[Hg] Rudy Sharla TRAUMA COORDINATOR-C Work Phone: [facility] 05-13-2024 22:00-0400 Heart rate 88 /min Rudy Sharla TRAUMA COORDINATOR-C Work Phone: [facility] 05-13-2024 22:00-0400 Respiratory rate 25 /min Rudy Sharla TRAUMA COORDINATOR-C Work Phone: [facility] 05-13-2024 22:00-0400 SaO2% (BldA) [Mass fraction] 95 % Rudy Sharla TRAUMA COORDINATOR-C Work Phone: [facility] 05-13-2024 22:00-0400 Systolic blood pressure 214 mm[Hg] Rudy Sharla TRAUMA COORDINATOR-C Work Phone: [facility] 05-13-2024 15:45-0400 Body height 165.1 cm Rudy Sharla TRAUMA COORDINATOR-C Work Phone: [facility] 05-13-2024 15:45-0400 Body mass index (BMI) [Ratio] 25.6 kg/m2 Rudy Sharla TRAUMA COORDINATOR-C Work Phone: [facility] 05-13-2024 15:45-0400 Body weight 69.9 kg Rudy Sharla TRAUMA COORDINATOR-C Work Phone: [facility] 04-24-2024 20:20-0400 Body temperature 98 [degF] Rudy Sharla TRAUMA COORDINATOR-C Work Phone: [facility] 04-24-2024 20:20-0400 Diastolic blood pressure 62 mm[Hg] Rudy Sharla TRAUMA COORDINATOR-C Work Phone: [facility] 04-24-2024 20:20-0400 Heart rate 72 /min Rudy Sharla TRAUMA COORDINATOR-C Work Phone: [facility] 04-24-2024 20:20-0400 Respiratory rate 16 /min Rudy Sharla TRAUMA COORDINATOR-C Work Phone: [facility] 04-24-2024 20:20-0400 SaO2% (BldA) [Mass fraction] 97 % Rudy Sharla TRAUMA COORDINATOR-C Work Phone: [facility] 04-24-2024 20:20-0400 Systolic blood pressure 141 mm[Hg] Rudy Sharla TRAUMA COORDINATOR-C Work Phone: [facility] 04-24-2024 05:26-0400 Body mass index (BMI) [Ratio] 25 kg/m2 Rudy Sharla TRAUMA COORDINATOR-C Work Phone: [facility] 04-24-2024 05:26-0400 Body weight 68.1 kg Rudy Sharla TRAUMA COORDINATOR-C Work Phone: [facility] 04-23-2024 16:05-0400 Body height 165.1 cm Rudy Sharla TRAUMA COORDINATOR-C Work Phone: [facility] 04-22-2024 08:30-0400 Inhaled oxygen flow rate 2 L/min Rudy Sharla TRAUMA COORDINATOR-C Work Phone: [facility] 04-21-2024 06:00-0400 Inhaled oxygen concentration 30 % Rudy Sharla TRAUMA COORDINATOR-C Work Phone: [facility] 04-20-2024 20:15-0400 Diastolic blood pressure 65 mm[Hg] Rudy Sharla TRAUMA COORDINATOR-C Work Phone: [facility] 04-20-2024 20:15-0400 Heart rate 100 /min Rudy Sharla TRAUMA COORDINATOR-C Work Phone: [facility] 04-20-2024 20:15-0400 Respiratory rate 19 /min Rudy Sharla TRAUMA COORDINATOR-C Work Phone: [facility] 04-20-2024 20:15-0400 Systolic blood pressure 110 mm[Hg] Rudy Sharla TRAUMA COORDINATOR-C Work Phone: [facility] 04-20-2024 20:00-0400 Body temperature 97.7 [degF] Rudy Sharla TRAUMA COORDINATOR-C Work Phone: [facility] 04-20-2024 20:00-0400 SaO2% (BldA) [Mass fraction] 97 % Rudy Sharla TRAUMA COORDINATOR-C Work Phone: [facility] 04-20-2024 15:06-0400 Body height 165.1 cm Rudy Sharla TRAUMA COORDINATOR-C Work Phone: [facility] 04-20-2024 15:06-0400 Body mass index (BMI) [Ratio] 24.6 kg/m2 Rudy Sharla TRAUMA COORDINATOR-C Work Phone: [facility] 04-20-2024 15:06-0400 Body weight 67.1 kg Rudy Sharla TRAUMA COORDINATOR-C Work Phone: [facility] 02-17-2024 15:20-0500 Body temperature 98.6 [degF] Rudy Sharla TRAUMA COORDINATOR-C Work Phone: [facility] 02-17-2024 15:20-0500 Diastolic blood pressure 75 mm[Hg] Rudy Sharla TRAUMA COORDINATOR-C Work Phone: [facility] 02-17-2024 15:20-0500 Heart rate 81 /min Rudy Sharla TRAUMA COORDINATOR-C Work Phone: [facility] 02-17-2024 15:20-0500 Respiratory rate 18 /min Rudy Sharla TRAUMA COORDINATOR-C Work Phone: [facility] 02-17-2024 15:20-0500 SaO2% (BldA) [Mass fraction] 100 % Rudy Sharla TRAUMA COORDINATOR-C Work Phone: [facility] 02-17-2024 15:20-0500 Systolic blood pressure 135 mm[Hg] Rudy Sharla TRAUMA COORDINATOR-C Work Phone: [facility] 02-17-2024 03:51-0500 Body mass index (BMI) [Ratio] 25 kg/m2 Rudy Sharla TRAUMA COORDINATOR-C Work Phone: [facility] 02-17-2024 03:51-0500 Body weight 68.2 kg Rudy Sahrla TRAUMA COORDINATOR-C Work Phone: [facility] 01-05-2024 09:15-0500 Body temperature 98.1 [degF] Rudy Sharla TRAUMA COORDINATOR-C Work Phone: [facility] 01-05-2024 09:15-0500 Diastolic blood pressure 70 mm[Hg] Rudy Sharla TRAUMA COORDINATOR-C Work Phone: [facility] 01-05-2024 09:15-0500 Heart rate 86 /min Rudy Sharla TRAUMA COORDINATOR-C Work Phone: [facility] 01-05-2024 09:15-0500 Respiratory rate 18 /min Rudy Sharla TRAUMA COORDINATOR-C Work Phone: [facility] 01-05-2024 09:15-0500 SaO2% (BldA) [Mass fraction] 100 % Rudy Sharla TRAUMA COORDINATOR-C Work Phone: [facility] 01-05-2024 09:15-0500 Systolic blood pressure 132 mm[Hg] Rudy Sharla TRAUMA COORDINATOR-C Work Phone: [facility] 01-05-2024 05:55-0500 Body mass index (BMI) [Ratio] 26.9 kg/m2 Rudy Sharla TRAUMA COORDINATOR-C Work Phone: [facility] 01-05-2024 05:55-0500 Body weight 73.3 kg Rudy Sharla TRAUMA COORDINATOR-C Work Phone: [facility] 01-04-2024 11:04-0500 Inhaled oxygen concentration 2 % Rudy Sharla TRAUMA COORDINATOR-C Work Phone: [facility] 01-04-2024 11:04-0500 Inhaled oxygen flow rate 2 L/min Rudy Sharla TRAUMA COORDINATOR-C Work Phone: [facility] 04-18-2023 09:24-0500 Body temperature 98.2 [degF] TRAUMA COORDINATOR-C Rudy Sharla Work Phone: [facility] 04-18-2023 09:24-0500 Diastolic blood pressure 61 mm[Hg] TRAUMA COORDINATOR-C Rudy Sharla Work Phone: [facility] 04-18-2023 09:24-0500 Heart rate 84 /min TRAUMA COORDINATOR-C Rudy Sharla Work Phone: [facility] 04-18-2023 09:24-0500 Respiratory rate 16 /min TRAUMA COORDINATOR-C Rudy Sharla Work Phone: [facility] 04-18-2023 09:24-0500 SaO2% (BldA) [Mass fraction] 94 % TRAUMA COORDINATOR-C Rudy Sharla Work Phone: [facility] 04-18-2023 09:24-0500 Systolic blood pressure 118 mm[Hg] TRAUMA COORDINATOR-C Rudy Sharla Work Phone: [facility] 04-18-2023 05:51-0500 Body mass index (BMI) [Ratio] 27.5 kg/m2 TRAUMA COORDINATOR-C Rudy Boyer Work Phone: [facility] 04-18-2023 05:51-0500 Body weight 75 kg TRAUMA COORDINATOR-C Rudy Boyer Work Phone: [facility] 04-17-2023 07:00-0500 Inhaled oxygen flow rate 2 L/min TRAUMA COORDINATOR-C Rudy Boyer Work Phone: [facility] 04-16-2023 09:23-0500 Body height 165.1 cm TRAUMA COORDINATOR-C Rudy Boyer Work Phone: [facility] 04-14-2023 08:09-0500 Body temperature 97.2 [degF] [facility] 04-14-2023 08:09-0500 Diastolic blood pressure 78 mm[Hg] [facility] 04-14-2023 08:09-0500 Heart rate 96 /min [facility] 04-14-2023 08:09-0500 Respiratory rate 16 /min [facility] 04-14-2023 08:09-0500 SaO2% (BldA) [Mass fraction] 94 % [facility] 04-14-2023 08:09-0500 Systolic blood pressure 119 mm[Hg] [facility] 04-14-2023 08:03-0500 Inhaled oxygen flow rate 2 L/min [facility] 04-14-2023 01:55-0500 Body height 165.1 cm [facility] 04-14-2023 01:55-0500 Body mass index (BMI) [Ratio] 26.6 kg/m2 [facility] 04-14-2023 01:55-0500 Body weight 72.8 kg [facility] 04-10-2023 14:47-0500 Body height 162.6 cm Nicola Adhikari MD Work Phone: [facility] 04-10-2023 14:47-0500 Body mass index (BMI) [Ratio] 30.55 kg/m2 Nicola Adhikari MD Work Phone: [facility] 04-10-2023 14:47-0500 Body weight 80.74 kg Nicola Adhikari MD Work Phone: [facility] 01-01-2023 20:17-0500 Body temperature 98.01 [degF] Esteban Hawley MD Work Phone: [facility] 01-01-2023 20:17-0500 Diastolic blood pressure 63 mm[Hg] Esteban Hawley MD Work Phone: [facility] 01-01-2023 20:17-0500 Heart rate 102 /min Esteban Hawley MD Work Phone: [facility] 01-01-2023 20:17-0500 Respiratory rate 16 /min Esteban Hawley MD Work Phone: [facility] 01-01-2023 20:17-0500 SaO2% (BldA) [Mass fraction] 97 % Esteban Hawley MD Work Phone: [facility] 01-01-2023 20:17-0500 Systolic blood pressure 110 mm[Hg] Esteban Hawley MD Work Phone: [facility] 01-01-2023 09:58-0500 Body height 162.6 cm Esteban Hawley MD Work Phone: [facility] 12-26-2022 06:29-0500 Body mass index (BMI) [Ratio] 30.61 kg/m2 Esteban Hawley MD Work Phone: [facility] 12-26-2022 06:29-0500 Body weight 80.9 kg Esteban Hawley MD Work Phone: [facility] 12-24-2022 04:42-0500 SaO2% (BldA) [Mass fraction] 99.0 % Esteban Hawley MD Work Phone: [facility] 12-23-2022 23:05-0500 SaO2% (BldA) [Mass fraction] 98.8 % Esteban Hawley MD Work Phone: [facility] 12-23-2022 21:33-0500 SaO2% (BldA) [Mass fraction] 98.9 % Esteban Hawley MD Work Phone: [facility] 12-23-2022 19:30-0500 Diastolic blood pressure 71 mm[Hg] [facility] 12-23-2022 19:30-0500 Heart rate 124 /min [facility] 12-23-2022 19:30-0500 Respiratory rate 18 /min [facility] 12-23-2022 19:30-0500 SaO2% (BldA) [Mass fraction] 95 % [facility] 12-23-2022 19:30-0500 Systolic blood pressure 105 mm[Hg] [facility] 12-23-2022 19:15-0500 Inhaled oxygen flow rate 2 L/min [facility] 12-23-2022 19:04-0500 Body temperature 96.8 [degF] [facility] 12-23-2022 14:14-0500 Body height 162.56 cm [facility] 12-23-2022 14:14-0500 Body mass index (BMI) [Ratio] 28.8 kg/m2 [facility] 12-23-2022 14:14-0500 Body weight 76.3 kg [facility] 11-06-2022 13:51-0400 Body height 162.6 cm Phyllis Orozcofiglio PA-C Work Phone: [facility] 11-06-2022 13:51-0400 Body mass index (BMI) [Ratio] 25.75 kg/m2 Phyllis OrozcoBrown and Meyer [employer]lio PA-C Work Phone: [facility] 11-06-2022 13:51-0400 Body weight 68.04 kg Phyllis [employer] PA-C Work Phone: [facility] 11-06-2022 13:51-0400 Diastolic blood pressure 74 mm[Hg] Phyllis OrozcoBrown and [employer]lio PA-C Work Phone: [facility] 11-06-2022 13:51-0400 Heart rate 80 /min Phyllis OrozcoLa Más Monao PA-C Work Phone: [facility] 11-06-2022 13:51-0400 Systolic blood pressure 120 mm[Hg] Phyllis Guevara FRANKLIN Work Phone: [facility] 10-15-2022 08:13-0400 Body temperature 96.4 [degF] Vineet Mckeon MD Work Phone: [facility] 10-15-2022 08:13-0400 Diastolic blood pressure 83 mm[Hg] Vineet Mckeon MD Work Phone: [facility] 10-15-2022 08:13-0400 Heart rate 89 /min Vineet Mckeon MD Work Phone: [facility] 10-15-2022 08:13-0400 Respiratory rate 18 /min Vineet Mckeon MD Work Phone: [facility] 10-15-2022 08:13-0400 SaO2% (BldA) [Mass fraction] 96 % Vineet Mckeon MD Work Phone: [facility] 10-15-2022 08:13-0400 Systolic blood pressure 108 mm[Hg] Vineet Mckeon MD Work Phone: [facility] 10-14-2022 05:00-0400 Body mass index (BMI) [Ratio] 25.75 kg/m2 Vineet Mckeon MD Work Phone: [facility] 10-14-2022 05:00-0400 Body weight 68.04 kg Vineet Mckeon MD Work Phone: [facility] 10-05-2022 11:31-0400 Body height 162.6 cm Vineet Mckeon MD Work Phone: [facility] 10-03-2022 14:07-0400 Body height 163.8 cm Cici Martinez MD Work Phone: [facility] 10-03-2022 14:07-0400 Body mass index (BMI) [Ratio] 24.5 kg/m2 Cici Martinez MD Work Phone: [facility] 10-03-2022 14:07-0400 Body weight 65.77 kg Cici Martinez MD Work Phone: [facility] 09-18-2022 11:03-0400 Diastolic blood pressure 60 mm[Hg] Dr. Cici Calderon Work Phone: [facility] 09-18-2022 11:03-0400 Heart rate 91 /min Dr. Cici Calderon Work Phone: [facility] 09-18-2022 11:03-0400 Respiratory rate 16 /min Dr. Cici Calderon Work Phone: [facility] 09-18-2022 11:03-0400 SaO2% (BldA) [Mass fraction] 100 % Dr. Cici Calderon Work Phone: [facility] 09-18-2022 11:03-0400 Systolic blood pressure 107 mm[Hg] Dr. Cici Calderon Work Phone: [facility] 09-18-2022 10:03-0400 Inhaled oxygen flow rate 2 L/min Dr. Cici Calderon Work Phone: [facility] 09-18-2022 08:56-0400 Body height 162.[address] Cici Calderon Work Phone: [facility] 09-18-2022 08:56-0400 Body mass index (BMI) [Ratio] 26.4 kg/m2 Dr. Cici Calderon Work Phone: [facility] 09-18-2022 08:56-0400 Body weight 69.[address] Cici Calderon Work Phone: [facility] 09-18-2022 08:20-0400 Body temperature 98.2 [degF] Dr. Cici Calderon Work Phone: [facility] 08-16-2022 16:14-0400 Body temperature 98.2 [degF] Dr. Cici Calderon Work Phone: [facility] 08-16-2022 16:14-0400 Diastolic blood pressure 62 mm[Hg] Dr. Cici Calderon Work Phone: [facility] 08-16-2022 16:14-0400 Heart rate 87 /min Dr. Cici Calderon Work Phone: [facility] 08-16-2022 16:14-0400 Inhaled oxygen flow rate 3 L/min Dr. Cici Calderon Work Phone: [facility] 08-16-2022 16:14-0400 Respiratory rate 18 /min Dr. Cici Calderon Work Phone: [facility] 08-16-2022 16:14-0400 SaO2% (BldA) [Mass fraction] 96 % Dr. Cici Calderon Work Phone: [facility] 08-16-2022 16:14-0400 Systolic blood pressure 134 mm[Hg] Dr. Cici Calderon Work Phone: [facility] 08-14-2022 15:23-0400 Body height 162.[address] Cici Calderon Work Phone: [facility] 08-14-2022 15:23-0400 Body weight 79.[address] Cici Calderon Work Phone: [facility] 08-09-2022 17:00-0400 Body mass index (BMI) [Ratio] 30.1 kg/m2 Dr. Cici Calderon Work Phone: [facility] 08-05-2022 21:26-0400 Body temperature 98.5 [degF] Dr. Cici Calderon Work Phone: [facility] 08-05-2022 21:26-0400 Diastolic blood pressure 85 mm[Hg] Dr. Cici Calderon Work Phone: [facility] 08-05-2022 21:26-0400 Heart rate 94 /min Dr. Cici Calderon Work Phone: [facility] 08-05-2022 21:26-0400 Respiratory rate 18 /min Dr. Cici Calderon Work Phone: 3(144)[phone] [place] [address] 08-05-2022 21:26-0400 SaO2% (BldA) [Mass fraction] 94 % Dr. Cici Calderon Work Phone: [facility] 08-05-2022 21:26-0400 Systolic blood pressure 182 mm[Hg] Dr. Cici Calderon Work Phone: [facility] 08-05-2022 17:54-0400 Body height 162.[address] Cici Calderon Work Phone: 6(065)[phone] [place] [address] 08-05-2022 17:54-0400 Body mass index (BMI) [Ratio] 33.5 kg/m2 Dr. Cici Calderon Work Phone: 7(085)[phone] [place] [address] 08-05-2022 17:54-0400 Body weight 88.[address] Cici Calderon Work Phone: 0(183)[phone] [place] [address] 07-06-2022 10:37-0400 Body height 163.[address] Cici Calderon Work Phone: 5(060)[phone] [place] [address] 07-06-2022 10:37-0400 Body mass index (BMI) [Ratio] 29.6 kg/m2 Dr. Cici Calderon Work Phone: 0(187)[phone] [place] [address] 07-06-2022 10:37-0400 Body weight 79.[address] Cici Calderon Work Phone: 9(647)[phone] [place] [address] Encounters Encounter Date Encounter Type Care Provider Facility Start: 11-14-2024 Dr. Anuja santoro MD -[facility] Work Phone: Start: 11-13-2024 Dr. [address] MD [facility] Work Phone: Start: 11-12-2024 Dr. [address] MD [facility] Work Phone: Start: 11-11-2024 Dr. Dereck Youssef MD -[facility] Work Phone: Start: 11-10-2024 Dr. [address]ousse[address] MD [facility] Work Phone: Start: 11-09-2024 Dr. Dereck Youssef MD -[facility] Work Phone: Start: 11-08-2024 ambulatory Anuja Zuniga ty:[facility] Start: 11-08-2024 End: 11-14-2024 Evaluation and management of inpatient Rudy Sharla TRAUMA COORDINATOR-C Work Phone: [facility] Start: 11-08-2024 End: 11-14-2024 Dr. Anuja Murcia MD -[facility] Work Phone: Start: 10-01-2024 End: 10-01-2024 Patient encounter procedure Christopherraquel Huang DO [facility] Work Phone: Start: 10-01-2024 End: 10-01-2024 Christopherraquel Huang DO [facility] Work Phone: Start: 10-01-2024 End: 10-01-2024 ambulatory Rudy Sharla TRAUMA COORDINATOR-C Work Phone: -[facility] Start: 09-05-2024 Non-patient / Non-visit Dr. Meaghan Hopkins MD -[facility] Work Phone: Start: 09-05-2024 Dr. Jordana sandoval MD -[facility] Work Phone: Start: 09-04-2024 Non-patient / Non-visit Dr. Meaghan Hopkins MD [facility] Work Phone: Start: 09-04-2024 Dr. [address]oval MD [facility] Work Phone: Start: 09-03-2024 Non-patient / Non-visit Dr. Meaghan Hopkins MD [facility] Work Phone: Start: 09-03-2024 Dr. [address]oval MD [facility] Work Phone: Start: 09-02-2024 Non-patient / Non-visit Dr. Meaghan Hopkins MD -[facility] Work Phone: Start: 09-02-2024 Dr. Jordana sandoval MD -[facility] Work Phone: Start: 09-01-2024 Non-patient / Non-visit Dr. Atul lakhani DO -[facility] Start: 09-01-2024 Dr. Atul Quezada DO -[facility] Start: 09-01-2024 ambulatory Jordana Hopkins Facility :[facility] Start: 09-01-2024 End: 09-05-2024 Dr. Jordana Hopkins MD -Progressive Care Unit Work Phone: Start: 09-01-2024 End: 09-05-2024 Evaluation and management of inpatient Dr. Anuja Noel DO -Intensive Care Unit Work Phone: Start: 08-11-2024 End: 08-11-2024 Patient encounter procedure Jeromy Lai MD Work Phone: Endocrinology Comment on above: Age-related osteopor osis without current pathological fracture (Primary Dx); Osteoporosis without current pathological fracture, unspecified osteoporosis type Start: 08-11-2024 End: 08-11-2024 ambulatory JEROMY LAI Facility:[facility] Start: 06-20-2024 End: 06-20-2024 ambulatory REGINA ODEN Facility:[facility] Start: 06-20-2024 End: 06-20-2024 Patient encounter [...] above: Patient Update Start: 05-29-2024 End: 05-29-2024 Patient encounter procedure Christopher Huang -[facility] Work Phone: Start: 05-29-2024 End: 05-29-2024 ambulatory [place] [facility] [facility] Start: 05-19-2024 End: 05-19-2024 Emergency department patient visit Dr. Nicola Yadav DO -Emergency Department Work Phone: Start: 05-17-2024 End: 05-18-2024 Emergency department patient visit Dr. Nico Arce MD -Emergency Department Work Phone: Start: 05-17-2024 Non-patient / Non-visit Dr. Lionel WRIGHT -[facility] Work Phone: Start: 05-17-2024 Dr. Anuja santoro MD -[facility] Work Phone: Start: 05-16-2024 Non-patient / Non-visit Dr. Lionel WRIGHT -[facility] Work Phone: Start: 05-16-2024 Dr. Anuja santoro MD -[facility] Work Phone: Start: 05-15-2024 Non-patient / Non-visit Dr. Lionel WRIGHT -[facility] Work Phone: Start: 05-15-2024 Dr. Anuja santoro MD -[facility] Work Phone: Start: 05-14-2024 ambulatory [facility] :[facility] Start: 05-14-2024 End: 05-17-2024 Evaluation and management of inpatient Rudy Boyer TRAUMA COORDINATOR-C Work Phone: [facility] Work Phone: Start: 05-14-2024 End: 05-17-2024 Dr. Anuja Murcia MD -[facility] Work Phone: Start: 05-14-2024 Non-patient / Non-visit Dr. Lionel WRIGHT -[facility] Work Phone: Start: 05-14-2024 Dr. Anuja santoro [place] -[facility] Work Phone: Start: 05-13-2024 ambulatory Kanwal Aguilar Facility :[facility] Start: 05-13-2024 Non-patient / Non-visit Dr. Ananya Aguilar MD -[facility] Work Phone: Start: 05-13-2024 observation encounter Rudy abdalla TRAUMA COORDINATOR-C Work Phone: [facility] Work Phone: Start: 05-13-2024 Dr. Kanwal segal MD -Progressive Care Unit Work Phone: Start: 04-24-2024 Dr. John Short [facility] Work Phone: Start: 04-23-2024 Dr. John Short [facility] Work Phone: Start: 04-22-2024 Dr. John Short [facility] Work Phone: Start: 04-21-2024 Dr. John Short [facility] Work Phone: Start: 04-21-2024 ambulatory Tiffanie Jimenez Facility:[facility] Start: 04-21-2024 Dr. Tiffanie Jimenez MD -[facility] Start: 04-21-2024 Dr. Atul Quezada DO [facility] Start: 04-20-2024 Evaluation and manag ement of inpatient Rudy Boyer TRAUMA COORDINATOR-C Work Phone: [facility] Work Phone: Start: 04-20-2024 Dr. Kanwal segal MD -Intensive Care Unit Work Phone: Start: 04-20-2024 End: 04-24-2024 Evaluation and management of inpatient Rudy Boyer TRAUMA COORDINATOR-C Work Phone: [facility] Work Phone: Start: 04-20-2024 ambulatory Alden Pandya ity:[facility] Start: 04-20-2024 End: 04-24-2024 Dr. Kanwal Aguilar MD -[facility] Work Phone: Start: 02-17-2024 Dr. Jordana sandoval MD -[facility] Work Phone: Start: 02-16-2024 Dr. Jordana sandoval MD -[facility] Work Phone: Start: 02-15-2024 Dr. Jordana sandoval MD -[facility] Work Phone: Start: 02-14-2024 Dr. Atul Quezada DO -[facility] Start: 02-14-2024 Dr. Jordana sandoval MD -[facility] Work Phone: Start: 02-13-2024 ambulatory Alden Finn Mumtaz [facility] Start: 02-13-2024 End: 02-17-2024 Evaluation and management of inpatient Jordana Ivet Aranda Facility:[facility] Start: 02-13-2024 End: 02-17-2024 Dr. Jordana Hopkins MD -Progressive Care Unit Work Phone: Start: 01-25-2024 End: 01-25-2024 Christopher Huang -[facility] Work Phone: Start: 01-25-2024 End: 01-25-2024 ambulatory Christopher Huang Facility:[facility] Start: 01-05-2024 Dr. Zahra desir MD -[facility] Work Phone: Start: 01-04-2024 ambulatory Christopher Friend Facility :[facility] Start: 01-04-2024 Christopher Huang DO -[facility] Start: 01-04-2024 End: 01-04-2024 ambulatory Rudy Boyer Facility:[facility] Start: 01-04-2024 End: 01-04-2024 Dr. Martina Rendon MD -[facility] Work Phone: Start: 01-03-2024 Dr. Zahra desir MD -[facility] Work Phone: Start: 01-02-2024 Dr. Atul Quezada DO -[facility] Start: 01-02-2024 Dr. Zahra desir MD -[facility] Work Phone: Start: 01-01-2024 Dr. Atul Quezada DO [facility] Start: 01-01-2024 Dr. Zahra desir MD -[facility] Work Phone: Start: 12-31-2023 Christopher Huang DO -[facility] Start: 12-31-2023 Dr. Atul Quezada DO [facility] Start: 12-31-2023 ambulatory Rudy Boyer Facility:[facility] Start: 12-31-2023 Dr. Zahra desir MD -[facility] Work Phone: Start: 12-30-2023 ambulatory Atul Quezada Facility:[facility] Start: 12-30-2023 End: 01-05-2024 Evaluation and management of inpatient Zahra Palacio Facility:[facility] Start: 12-30-2023 End: 01-05-2024 Dr. Zahra Palacio MD -Progressive Care Unit Work Phone: Start: 06-18-2023 End: 06-18-2023 ambulatory TRAUMA COORDINATOR-C Rudy Boyer Work Phone: [facility] Work Phone: Start: 06-18-2023 End: 06-18-2023 Patient encounter procedure TRAUMA COORDINATOR-Madelyn Boyer Work Phone: [facility]-Radiology, [place] Work Phone: Start: 05-22-2023 ambulatory Nurse Vivek wall Work Phone: Allergy Comment on above: Allergy & immunology Previsit Instructions Start: 05-22-2023 E-mail encounter nayely peterson caregiver Nurse Vivek Main Work Phone: [facility] Start: 05-21-2023 Orders Only Nicola Adhikari MD Work Phone: [facility] Comment on above: Closed displaced int ertrochanteric fracture of right femur with routine healing, subsequent encounter (Primary Dx) Start: 04-18-2023 Non-patient / Non-visit TRAUMA COORDINATOR-C R achel Sharla Work Phone: [facility] Work Phone: Start: 04-18-2023 TRAUMA COORDINATOR-C Rudy Ed gar Work Phone: [facility] Work Phone: Start: 04-17-2023 Non-patient / Non-visit TRAUMA COORDINATOR-C R achel Sharla Work Phone: [facility] Start: 04-17-2023 TRAUMA COORDINATOR-C Rudy Ed gar Work Phone: [facility] Start: 04-17-2023 Non-patient / Non-visit TRAUMA COORDINATOR-C R achel Sharla Work Phone: [facility] Work Phone: Start: 04-17-2023 TRAUMA COORDINATOR-C Rudy Ed gar Work Phone: [facility] Work Phone: Start: 04-16-2023 Non-patient / Non-visit TRAUMA COORDINATOR-C R achel Sharla Work Phone: [facility] Start: 04-16-2023 TRAUMA COORDINATOR-C Rudy Ed gar Work Phone: [facility] Start: 04-16-2023 Non-patient / Non-visit TRAUMA COORDINATOR-C R achel Sharla Work Phone: [facility] Work Phone: Start: 04-16-2023 TRAUMA COORDINATOR-C Rudy Ed gar Work Phone: [facility] Work Phone: Start: 04-15-2023 Non-patient / Non-visit TRAUMA COORDINATOR-C R achel Sharla Work Phone: [facility] Start: 04-15-2023 TRAUMA COORDINATOR-C Rudy Ed gar Work Phone: [facility] Start: 04-15-2023 Non-patient / Non-visit TRAUMA COORDINATOR-C R achel Sharla Work Phone: [facility] Work Phone: Start: 04-15-2023 TRAUMA COORDINATOR-C Rudy Ed gar Work Phone: [facility] Work Phone: Start: 04-14-2023 End: 04-18-2023 Evaluation and management of inpatient TRAUMA COORDINATOR-C Rudy Sharla Work Phone: [facility] Work Phone: Start: 04-14-2023 Non-patient / Non-visit TRAUMA COORDINATOR-C R achel Sharla Work Phone: [facility] Work Phone: Start: 04-14-2023 End: 04-18-2023 [facility]-Intensive Care Unit Work Phone: Start: 04-12-2023 Telephone encounter Nicola morrison MD Work Phone: [facility] Comment on above: Home Care Start: 04-10-2023 End: 04-10-2023 ambulatory NICOLA ADHIKARI [facility] Start: 04-10-2023 End: 04-10-2023 Office outpatient visit 15 minutes Nicola Adhikari MD Work Phone: [facility] Comment on above: Closed displaced int ertrochanteric fracture of right femur with routine healing, subsequent encounter (Primary Dx) Start: 04-02-2023 Orders Only Nicola Adhikari MD Work Phone: [facility] Comment on above: Closed displaced int ertrochanteric fracture of right femur with routine healing, subsequent encounter (Primary Dx) Start: 03-26-2023 End: 03-26-2023 Departed Referred TRAUMA COORDINATOR-Madelyn Boyer Work Phone: [facility] Start: 03-26-2023 End: 03-26-2023 [facility] Start: 03-19-2023 End: 03-19-2023 ambulatory [facility] Work Phone: Start: 03-19-2023 End: 03-19-2023 Departed Referred TRAUMA COORDINATOR-Madelyn Boyer Work Phone: [facility] Start: 03-19-2023 Registered Referred [facility] Start: 03-19-2023 End: 03-19-2023 [facility] Start: 03-12-2023 End: 03-12-2023 ambulatory [facility] Work Phone: Start: 03-12-2023 End: 03-12-2023 Departed Referred TRAUMA COORDINATORJarad Boyer Work Phone: [facility] Start: 03-12-2023 Registered Referred [facility] Start: 03-12-2023 End: 03-12-2023 [facility] Start: 03-05-2023 End: 03-05-2023 ambulatory [facility] Work Phone: Start: 03-05-2023 End: 03-05-2023 Departed Referred [facility] Start: 03-05-2023 End: 03-05-2023 [facility] Start: 02-26-2023 End: 02-26-2023 ambulatory [facility] Work Phone: Start: 02-26-2023 End: 02-26-2023 Departed Referred [facility] Start: 02-26-2023 Registered Referred [facility] Start: 02-26-2023 End: 02-26-2023 [facility] Start: 02-19-2023 End: 02-19-2023 ambulatory [facility] Work Phone: Start: 02-19-2023 Registered Referred [facility] Start: 02-19-2023 End: 02-19-2023 [facility] Start: 02-13-2023 End: 02-13-2023 ambulatory [facility] Work Phone: Start: 02-13-2023 End: 02-13-2023 Departed Referred [facility] Start: 02-13-2023 Registered Referred [facility] Start: 02-13-2023 End: 02-13-2023 [facility] Start: 02-07-2023 End: 02-07-2023 ambulatory [facility] Work Phone: Start: 02-07-2023 End: 02-07-2023 Departed Referred [facility] Start: 02-07-2023 Registered Referred [facility] Start: 02-07-2023 End: 02-07-2023 [facility] Start: 02-06-2023 End: 02-06-2023 ambulatory [facility] Work Phone: Start: 02-06-2023 End: 02-06-2023 Departed Referred [facility] Start: 02-06-2023 End: 02-06-2023 [facility] Start: 01-29-2023 End: 01-29-2023 ambulatory [facility] Work Phone: Start: 01-29-2023 End: 01-29-2023 Departed Referred [facility] Start: 01-29-2023 Registered Referred [facility] Start: 01-29-2023 End: 01-29-2023 [facility] Start: 01-22-2023 End: 01-22-2023 ambulatory [facility] Work Phone: Start: 01-22-2023 End: 01-22-2023 Departed Referred [facility] Start: 01-22-2023 Registered Referred [facility] Start: 01-22-2023 End: 01-22-2023 [facility] Start: 01-15-2023 Registered Referred [facility] Start: 01-15-2023 [facility] Start: 01-10-2023 Registered Referred [facility] Start: 01-10-2023 [facility] Start: 01-08-2023 Registered Referred [facility] Start: 01-08-2023 [facility] Start: 01-05-2023 Registered Referred [facility] Start: 01-05-2023 [facility] Start: 01-02-2023 Telephone encounter Yifan downey PA-C Work Phone: [facility] Comment on above: orders need sent to facility PO Start: 01-02-2023 Registered Referred [facility] Start: 01-02-2023 [facility] Start: 12-29-2022 Orders Only Phyllis Guevara PA-C Work Phone: [facility] Comment on above: S/P total left hip a rthroplasty (Primary Dx) Start: 12-27-2022 [facility] Start: 12-25-2022 ambulatory ANUJA WOLFE [facility] Start: 12-24-2022 End: 12-24-2022 Emergency department patient visit PCP SAVANNA [facility] Start: 12-23-2022 Emergency department patient visit JOHN OVIEDO [facility] Start: 12-23-2022 End: 01-01-2023 Evaluation and management of inpatient MARLENABrown CHANDAN [facility] Start: 12-23-2022 End: 01-01-2023 Evaluation and management of inpatient Esteban Hawley MD Work Phone: [facility] Progressive Care Unit PCU H6 Start: 12-23-2022 End: 12-23-2022 Emergency department patient visit [facility]-Emergency Department Work Phone: Start: 12-23-2022 End: 12-23-2022 [facility]-Emergency Department Work Phone: Start: 12-23-2022 Documentation procedure Debi Lamb MD Work Phone: [facility] Start: 11-06-2022 End: 11-06-2022 Orders Only Regina Oden DO Work Phone: Hematology/Oncology Comment on above: Lymphocytosis (Prima ry Dx) Appointment Start: 11-06-2022 End: 11-06-2022 Postop follow up visit related to original px Phyllis Guevara PA-C Work Phone: [facility] Comment on above: Failed orthopedic im plant, initial encounter [facility] S/P total left hip arthroplasty Start: 10-30-2022 Telephone encounter Berry Mares MD Work Phone: [facility] Comment on above: Orders (Lovenox) Start: 10-19-2022 Orders Only Regina Zavala O Work Phone: Hematology/Oncology Comment on above: Lytic bone lesions o n xray (Primary Dx) Appointment Start: 10-16-2022 Telephone encounter Miguel Chapman Work Phone: [facility] Clinical Communication Start: 10-03-2022 End: 10-15-2022 Evaluation and management of inpatient [facility] Start: 10-03-2022 End: 10-15-2022 Evaluation and management of inpatient Vineet Mckeon MD Work Phone: [facility] Start: 10-03-2022 End: 10-04-2022 ambulatory [facility] Start: 10-03-2022 End: 10-03-2022 ambulatory [facility] Start: 10-03-2022 End: 10-03-2022 Office outpatient new 60 minutes Cici Martinez MD Work Phone: [facility] Comment on above: Failed orthopedic im plant, initial encounter (HCC) (Primary Dx); Left hip pain Start: 10-03-2022 Telephone encounter Regina Wright ci DO Work Phone: Hematology/Oncology Comment on above: Results Start: 09-27-2022 Telephone encounter Regina Wright ci DO Work Phone: Hematology/Oncology Start: 09-18-2022 Telephone encounter Regina Wright ci DO Work Phone: Hematology/Oncology Comment on above: Question Start: 09-18-2022 End: 09-18-[address] Cici Calderon Work Phone: [facility] Work Phone: Start: 09-18-2022 End: 09-18-[address] Cici Calderon Work Phone: [facility] [facility] Phone: Start: 08-17-2022 Telephone encounter Regina Wright ci DO Work Phone: Hematology/Oncology Comment on above: New Patient Start: 08-16-2022 Non-patient / Non-visit Dr. Babatunde Calderon Work Phone: [facility] Work Phone: Start: 08-15-2022 Non-patient / Non-visit Dr. Babatunde Calderon Work Phone: [facility] Start: 08-15-2022 Non-patient / Non-visit Dr. Babatunde Calderon Work Phone: [facility] Work Phone: Start: 08-14-2022 Non-patient / Non-visit [facility]atunde Calder[facility] Start: 08-14-2022 Non-patient / Non-visit Dr. Babatunde Calderon Work Phone: [facility] Work Phone: Start: 08-13-2022 Non-patient / Non-visit Dr. Babatunde Calderon Work Phone: [facility] Work Phone: Start: 08-12-2022 Non-patient / Non-visit Dr. Babatunde Calderon Work Phone: [facility] Work Phone: Start: 08-11-2022 Non-patient / Non-visit Dr. Babatunde Calderon Work Phone: [facility] Work Phone: Start: 08-10-2022 Non-patient / Non-visit Dr. Babatunde Calderon Work Phone: [facility] Work Phone: Start: 08-09-2022 Non-patient / Non-visit Dr. Babatunde Calderon Work Phone: [facility] Work Phone: Start: 08-08-2022 Non-patient / Non-visit Dr. Babatunde Calderon Work Phone: [facility] Work Phone: Start: 08-07-2022 Non-patient / Non-visit Dr. Babatunde Calderon Work Phone: [facility] Work Phone: Start: 08-07-2022 End: 08-07-2022 Non-patient / Non-visit Dr. Cici Calderon Work Phone: [facility] Work Phone: Start: 08-06-2022 Non-patient / Non-visit Dr. Babatunde Calderon Work Phone: [facility] Work Phone: Start: 08-05-2022 End: 08-16-2022 Evaluation and management of inpatient Dr. Cici Calderon Work Phone: [facility]-Medical Surgical 3 Start: 07-13-2022 End: 07-13-[address] Cici Calderon Work Phone: [facility] Work Phone: Start: 07-13-2022 End: 07-13-[address] Cici Calderon [facility] Start: 07-06-2022 End: 07-06-[address] Cici Calderon Work Phone: [facility] Start: 07-26-2021 End: 07-26-2021 [facility] Start: 04-16-2018 End: 04-16-2018 Patient encounter procedure [facility] Start: 03-27-2018 End: 03-27-2018 Patient encounter procedure [facility] Start: 03-07-2018 Encounter for other preprocedural examination [facility] Start: 03-07-2018 End: 03-08-2018 Patient encounter procedure [facility] Start: 09-16-2016 Ambulatory UNKNOWN PROVIDER [facility] Start: 07-27-2008 End: 08-03-2012 Patient encounter status Regina Oden DO Work Phone: [facility] Procedures Date Procedure Procedure Detail Performing Clinician Start: 11-14-2024 Estimated creatinine clearance Rudy mcgowan TRAUMA COORDINATOR-C Work Phone: Start: 11-14-2024 Mean corpuscular hemoglobin concentration determination Rudy Boyer TRAUMA COORDINATOR-C Work Phone: Start: 11-14-2024 Neutrophil count Rudy Boyer TRAUMA COORDINATOR-C Work Phone: Start: 11-14-2024 Nucleated red blood cell count procedure Rudy Boyer TRAUMA COORDINATOR-C Work Phone: Start: 11-14-2024 Platelet mean volume determination Todd Boyer TRAUMA COORDINATOR-C Work Phone: Start: 11-13-2024 Serum inorganic phosphate measurement Rudy Boyer TRAUMA COORDINATOR-C Work Phone: Start: 11-12-2024 MRI of brain without contrast Rudy Mendoza ar TRAUMA COORDINATOR-C Work Phone: Start: 11-12-2024 Blood count smear mcrscp w/mnl difrntl wbc count Rudy Boyer TRAUMA COORDINATOR-C Work Phone: Start: 11-12-2024 Estimated creatinine clearance Rudy mcgowan TRAUMA COORDINATOR-C Work Phone: Start: 11-12-2024 Mean corpuscular hemoglobin concentration determination Rudy Boyer TRAUMA COORDINATOR-C Work Phone: Start: 11-12-2024 Nucleated red blood cell count procedure Rudy Boyer TRAUMA COORDINATOR-C Work Phone: Start: 11-12-2024 Platelet mean volume determination Todd Boyer TRAUMA COORDINATOR-C Work Phone: Start: 11-11-2024 Urine microscopy: red cells Rudy Boyer TRAUMA COORDINATOR-C Work Phone: Start: 11-11-2024 Urnls dip stick/tablet reagent auto microscopy Rudy Boyer TRAUMA COORDINATOR-C Work Phone: Start: 11-08-2024 Nucleic acid assay Rudy Boyer TRAUMA COORDINATOR-C Work Phone: Start: 11-08-2024 Serum inorganic phosphate measurement Rudy Sharla TRAUMA COORDINATOR-C Work Phone: Start: 11-08-2024 CT of head without contrast Rudy Adornogar TRAUMA COORDINATOR-C Work Phone: Start: 11-08-2024 Benzodiazepine measurement, urine Rudy Adornogar TRAUMA COORDINATOR-C Work Phone: Start: 11-08-2024 Cocaine measurement, urine Rudy Adornogar TRAUMA COORDINATOR-C Work Phone: Start: 11-08-2024 Methadone measurement, urine Rudy Adornoga r TRAUMA COORDINATOR-C Work Phone: Start: 11-08-2024 Urine cannabinoid measurement Rudy Adornog ar TRAUMA COORDINATOR-C Work Phone: Start: 11-08-2024 Urine opiate measurement Rudy Adornogar TRAUMA COORDINATOR -C Work Phone: Start: 11-08-2024 Assay of triglycerides Rudy Adornogar TRAUMA COORDINATOR-C Work Phone: Start: 11-08-2024 Total cholesterol:HDL ratio measurement Rudy Sharla TRAUMA COORDINATOR-C Work Phone: Start: 11-08-2024 Triglycerides measurement Rudy Boyer N P-C Work Phone: Start: 11-08-2024 Carbon dioxide measurement, partial pressure Rudy Adornogar TRAUMA COORDINATOR-C Work Phone: Start: 11-08-2024 Gases blood o2 saturation only direct timbo Rudy Adornogar TRAUMA COORDINATOR-C Work Phone: Start: 11-08-2024 Measurement of partial pressure of oxygen in blood Rudy Adornogar TRAUMA COORDINATOR-C Work Phone: Start: 11-08-2024 Oxygen saturation measurement Rudy Adornog ar TRAUMA COORDINATOR-C Work Phone: Start: 11-08-2024 Venous oxygen saturation measurement Rudy Adornogar TRAUMA COORDINATOR-C Work Phone: Start: 11-08-2024 Ct abdomen & pelvis w/contrast material Rudy Adornogar TRAUMA COORDINATOR-C Work Phone: Start: 11-08-2024 CT cervical spine without contrast Todd Boyer TRAUMA COORDINATOR-C Work Phone: Start: 11-08-2024 CT of head without contrast Rudy Boyer TRAUMA COORDINATOR-C Work Phone: Start: 11-07-2024 Assay of lactate Rudy Boyer TRAUMA COORDINATOR-C Work Phone: Start: 11-07-2024 Lactic acid measurement Rudy Boyer TRAUMA COORDINATOR- C Work Phone: Start: 11-07-2024 Triacylglycerol lipase measurement Todd Boyer TRAUMA COORDINATOR-C Work Phone: Start: 11-07-2024 Radiologic exam chest 2 views Rudy Mendoza ar TRAUMA COORDINATOR-C Work Phone: Start: 09-05-2024 Blood count smear mcrscp w/mnl difrntl wbc count Rudy Boyer TRAUMA COORDINATOR-C Work Phone: Start: 09-05-2024 Estimated creatinine clearance Rudy mcgowan TRAUMA COORDINATOR-C Work Phone: Start: 09-05-2024 Mean corpuscular hemoglobin concentration determination Rudy Boyer TRAUMA COORDINATOR-C Work Phone: Start: 09-05-2024 Neutrophil count Rudy Boyer TRAUMA COORDINATOR-C Work Phone: Start: 09-05-2024 Nucleated red blood cell count procedure Rudy Boyer TRAUMA COORDINATOR-C Work Phone: Start: 09-05-2024 Platelet mean volume determination Todd Boyer TRAUMA COORDINATOR-C Work Phone: Start: 09-02-2024 MRI of lumbar spine Rudy Boyer TRAUMA COORDINATOR-C Work Phone: Start: 09-01-2024 Blood culture Rudy Boyer TRAUMA COORDINATOR-C Work Phone: Start: 09-01-2024 Identification procedure for living organism Rudy Boyer TRAUMA COORDINATOR-C Work Phone: Start: 09-01-2024 Urine culture Rudy Boyer TRAUMA COORDINATOR-C Work Phone: Start: 09-01-2024 Assay of triglycerides Rudy Boyer TRAUMA COORDINATOR-C Work Phone: Start: 09-01-2024 D-dimer assay, quantitative Rudy Boyer TRAUMA COORDINATOR-C Work Phone: Comment on above: D-Dimer ELEVATED (>0.49): Additional opal dies and clinicalassessments are indicated to conclude diagnosis of:Deep Vein Thrombosis (DVT) or Pulmonary Embolism (PE)CRITICAL VALUE CALLED TO BINDU NELSON09/01/24 0602 Maegan Anderson.RESULTS READ BACK BY SAME. Start: 09-01-2024 Lactic acid measurement Rudy Boyer TRAUMA COORDINATOR- C Work Phone: Start: 09-01-2024 Parathyroid hormone measurement Rudy abdalla TRAUMA COORDINATOR-C Work Phone: Start: 09-01-2024 Total cholesterol:HDL ratio measurement Rudy Boyer TRAUMA COORDINATOR-C Work Phone: Start: 09-01-2024 Triglycerides measurement Rudy Boyer N P-C Work Phone: Start: 09-01-2024 Plain chest X-ray Rudy Boyer TRAUMA COORDINATOR-C Work Phone: Start: 09-01-2024 Venous oxygen saturation measurement Rudy Boyer TRAUMA COORDINATOR-C Work Phone: Start: 09-01-2024 Plain chest X-ray Rudy Boyer TRAUMA COORDINATOR-C Work Phone: Start: 09-01-2024 Urine microscopy: red cells Rudy Boyer TRAUMA COORDINATOR-C Work Phone: Start: 09-01-2024 Urnls dip stick/tablet reagent auto microscopy Rudy Boyer TRAUMA COORDINATOR-C Work Phone: Start: 09-01-2024 CT of abdomen and pelvis without contrast Rudy Boyer TRAUMA COORDINATOR-C Work Phone: Start: 09-01-2024 CT of head without contrast Rudy Sharla TRAUMA COORDINATOR-C Work Phone: Start: 09-01-2024 Calculation of international normalized ratio Rudy Sharla TRAUMA COORDINATOR-C Work Phone: Start: 09-01-2024 Estimated creatinine clearance Rudy Ed gar TRAUMA COORDINATOR-C Work Phone: Start: 05-19-2024 CT of lumbar spine Rudy Sharla TRAUMA COORDINATOR-C Work Phone: Start: 05-17-2024 Estimated creatinine clearance Rudy Ed gar TRAUMA COORDINATOR-C Work Phone: Start: 05-16-2024 X-ray of chest, PA and lateral views Rudy Sharla TRAUMA COORDINATOR-C Work Phone: Start: 05-15-2024 Serum inorganic phosphate measurement Rduy Sharla TRAUMA COORDINATOR-C Work Phone: Start: 05-14-2024 Complete ultrasound of kidneys and bladder Rudy Sharla TRAUMA COORDINATOR-C Work Phone: Start: 05-13-2024 Urnls dip stick/tablet reagent auto microscopy Rudy Sharla TRAUMA COORDINATOR-C Work Phone: Start: 05-13-2024 CT of head without contrast Rudy Sharla TRAUMA COORDINATOR-C Work Phone: Start: 05-13-2024 CT of lumbar spine Rudy Sharla TRAUMA COORDINATOR-C Work Phone: Start: 04-20-2024 CT of abdomen and pelvis without contrast Rudy Sharla TRAUMA COORDINATOR-C Work Phone: Start: 04-20-2024 Plain radiography of pelvis Rudy Sharla TRAUMA COORDINATOR-C Work Phone: Start: 04-20-2024 CT cervical spine without contrast Rache l Sharla TRAUMA COORDINATOR-C Work Phone: Start: 04-20-2024 CT of chest without contrast Rudy Edga r TRAUMA COORDINATOR-C Work Phone: Start: 04-20-2024 CT of head without contrast Rudy Sharla TRAUMA COORDINATOR-C Work Phone: Start: 04-20-2024 Bacterial nucleic acid assay Rudy Adornoga r TRAUMA COORDINATOR-C Work Phone: Start: 04-20-2024 Blood culture Rudy Sharla TRAUMA COORDINATOR-C Work Phone: Start: 04-20-2024 Urine culture Rudy Sharla TRAUMA COORDINATOR-C Work Phone: Start: 04-20-2024 Rudy Boyer TRAUMA COORDINATOR-C Work Phone: Start: 02-14-2024 Nucleic acid assay Rudy Sharla TRAUMA COORDINATOR-C Work Phone: Start: 02-14-2024 Viral antigen assay Rudy Adornogar TRAUMA COORDINATOR-C Work Phone: Start: 02-13-2024 CT of abdomen and pelvis without contrast Rudy Sharla TRAUMA COORDINATOR-C Work Phone: Start: 02-13-2024 Plain chest X-ray Rudy Adornogar TRAUMA COORDINATOR-C Work Phone: Start: 02-13-2024 CT cervical spine without contrast Todd Boyer TRAUMA COORDINATOR-C Work Phone: Start: 02-13-2024 CT of head without contrast Rudy Sharla TRAUMA COORDINATOR-C Work Phone: Start: 02-13-2024 Blood culture Rudy Sharla TRAUMA COORDINATOR-C Work Phone: Start: 02-13-2024 Urine culture Rudy Boyer TRAUMA COORDINATOR-C Work Phone: Start: 01-04-2024 Esophagogastroduodenoscopy Rudy Sharla TRAUMA COORDINATOR-C Work Phone: Start: 01-02-2024 Clostridium difficile detection Rudy burgessar TRAUMA COORDINATOR-C Work Phone: Start: 01-02-2024 Nucleic acid assay Rudy Sharla TRAUMA COORDINATOR-C Work Phone: Start: 12-31-2023 Nucleic acid assay Rudy Sharla TRAUMA COORDINATOR-C Work Phone: Start: 12-31-2023 Plain chest X-ray Rudy Boyer TRAUMA COORDINATOR-C Work Phone: Start: 12-30-2023 CT of thorax, abdomen and pelvis with contrast Rudy Boyer TRAUMA COORDINATOR-C Work Phone: Start: 12-30-2023 Bacterial nucleic acid assay Rudy Blackwell r TRAUMA COORDINATOR-C Work Phone: Start: 12-30-2023 Blood culture Rudy Boyer TRAUMA COORDINATOR-C Work Phone: Start: 12-30-2023 Influenza virus A and B and SARS-CoV-2 (COVID-19) and Respiratory syncytial virus RNA Rudy Boyer TRAUMA COORDINATOR-C Work Phone: Start: 12-30-2023 Legionella pneumophila antigen assay Rudy Boyer TRAUMA COORDINATOR-C Work Phone: Start: 12-30-2023 Measurement of occult blood in stool specimen using immunoassay Rudy Boyer TRAUMA COORDINATOR-C Work Phone: Start: 12-30-2023 Urine culture Rudy Boyer TRAUMA COORDINATOR-C Work Phone: Start: 06-18-2023 Complete x-ray series of lumbar spine with bending views TRAUMA COORDINATOR-C Rudy Boyer Work Phone: Start: 04-16-2023 Colonoscopy TRAUMA COORDINATOR-C Rudy Boyer Work Phone: Start: 04-14-2023 Bacteria identified in Blood by Culture TRAUMA COORDINATOR-C Rudy Boyer Work Phone: Start: 04-14-2023 Urine culture TRAUMA COORDINATOR-C Rudy Boyer Work Phone: Start: 04-14-2023 Computed [...] count hematocrit Tawanna Gamez APR N - OIL AND [employer] FIELD TECHNICIAN Work Phone: Start: 12-29-2022 Glucose quantitative blood [...] End: 12-28-2022 Blood count hematocrit Ricco Rockwell MOBILE PARAMEDICAL EXAMINER - OIL AND GAS FIELD TECHNICIAN Work Phone: Start: 12-28-2022 Basic metabolic panel [...] HAWLEY Comment on above: Performed By: #### [id number] ####Medical Di silvia: VEENA RODRIGUEZ ([phone])[facility] ([facility])[address] [place] [address] Performed By: #### L [id number] ####Chamber Magistrate: VEENA RODRIGUEZ ([phone])[facility] ([facility])[address] [place] [address] Start: 12-27-2022 Blood typing serologic abo Cece [...] Work Phone: Start: 12-26-2022 Bilirubin direct Wilfrid Arguelles MOBILE PARAMEDICAL EXAMINER - OIL AND GAS FIELD TECHNICIAN Work Phone: Start: 12-26-2022 Glucose quantitative blood [...] Start: 12-24-2022 Radiologic exam chest single view sEteban Hawley MD Work Phone: Start: 12-24-2022 Blood [...] HAWLEY Comment on above: Performed By: #### [id number] ####Medical Di silvia: VEENA RODRIGUEZ ([phone])[facility] ([facility])[address] [place] [address] Performed By: #### L [id number] ####Chamber Magistrate: VEENA RODRIGUEZ ([id number])[facility] ([facility])[address] [place] [address] Start: 12-23-2022 Blood gases any combination ph [...] Glucose quantitative blood xcpt reagent strip Gayle Dunlap MD Work Phone: Start: 10-13-2022 Glucose quantitative blood xcpt reagent strip Gayle Dunlap MD Work Phone: Start: 10-13-2022 Glucose quantitative blood xcpt reagent strip Gayle Dunlap MD Work Phone: Start: 10-13-2022 End: 10-13-2022 Basic metabolic panel calcium total Luis Causey MD Work Phone: Start: 10-12-2022 Glucose quantitative blood xcpt reagent strip Gayle Dunlap MD Work Phone: Start: 10-12-2022 Glucose quantitative blood xcpt reagent strip Gayle Dunlap MD Work Phone: Start: 10-12-2022 Glucose quantitative blood xcpt reagent strip Gayle Dunlap MD Work Phone: Start: 10-12-2022 Glucose quantitative blood xcpt reagent strip Gayle Dunlap MD Work Phone: Start: 10-12-2022 Basic metabolic panel calcium total Luis Causey MD Work Phone: Start: 10-11-2022 Glucose quantitative blood xcpt reagent strip Gayle Dunlap MD Work Phone: Start: 10-11-2022 Glucose quantitative blood xcpt reagent strip Gayle Dunlap MD Work Phone: Start: 10-11-2022 POCT GLUCOSE METER UNSOLICITED RESULTS Gayle Dunlap MD Work Phone: Start: 10-11-2022 Glucose quantitative blood xcpt reagent strip Gayle Dunlap MD Work Phone: Start: 10-11-2022 Basic metabolic panel calcium total Petra Rivers MD Work Phone: Start: 10-10-2022 End: 10-10-2022 Blood count hematocrit Luis Causey MD Work Phone: Start: 10-10-2022 End: 10-10-2022 Radiologic examination femur minimum 2 views Luis Causey MD Work Phone: Start: 10-10-2022 Glucose quantitative blood xcpt reagent strip Gayle Dunlap MD Work Phone: Start: 10-10-2022 [place] GUIDANCE [...] Glucose quantitative blood xcpt reagent strip Gayle Dunlap MD Work Phone: Start: 10-10-2022 Glucose quantitative blood xcpt reagent strip Gayle Dunlap MD Work Phone: Start: 10-10-2022 Basic metabolic panel calcium total Petra Rivers MD Work Phone: Start: 10-10-2022 Blood typing serologic abo Cece Abraham Work Phone: Start: 10-09-2022 Glucose quantitative blood xcpt reagent strip Gayle Dunlap MD Work Phone: Start: 08-28-2023 Radiologic examination femur minimum 2 views Luis Causey MD Work Phone: Start: 10-09-2022 Glucose quantitative blood xcpt reagent strip Gayle Dunlap MD Work Phone: Start: 10-09-2022 Glucose quantitative blood xcpt reagent strip Gayle Dunlap MD Work Phone: Start: 10-09-2022 Glucose quantitative blood xcpt reagent strip Gayle Dunlap MD Work Phone: Start: 10-09-2022 Basic metabolic panel calcium total Petra Rivers MD Work Phone: Start: 10-08-2022 Glucose quantitative blood xcpt reagent strip Gayle Dunlap MD Work Phone: Start: 10-08-2022 Glucose quantitative blood xcpt reagent strip Gayle Dunlap MD Work Phone: Start: 10-08-2022 Glucose quantitative blood xcpt reagent strip Gayle Dunlap MD Work Phone: Start: 10-08-2022 Glucose quantitative blood xcpt reagent strip Gayle Dunlap MD Work Phone: Start: 10-08-2022 Basic metabolic panel calcium total Petra Rivers MD Work Phone: Start: 10-07-2022 Glucose quantitative blood xcpt reagent strip Gayle Dunlap MD Work Phone: Start: 10-07-2022 Glucose quantitative blood xcpt reagent strip Gayle Dunlap MD Work Phone: Start: 10-07-2022 Glucose quantitative blood xcpt reagent strip Gayle Dunlap MD Work Phone: Start: 10-07-2022 Glucose quantitative blood xcpt reagent strip Gayle Dunlap MD Work Phone: Start: 10-07-2022 Basic metabolic panel calcium total Petra Rivers MD Work Phone: Start: 10-06-2022 Glucose quantitative blood xcpt reagent strip Gayle Dunlap MD Work Phone: Start: 10-06-2022 Glucose quantitative blood xcpt reagent strip Gayle Dunlap MD Work Phone: Start: 10-06-2022 Glucose quantitative blood xcpt reagent strip Gayle Dunlap MD Work Phone: Start: 10-06-2022 Glucose quantitative blood xcpt reagent strip Gayle Dunlap MD Work Phone: Start: 10-06-2022 Basic metabolic panel calcium total Petra Rivers MD Work Phone: Start: 10-05-2022 Glucose quantitative blood xcpt reagent strip Alexis Magallanes MD Work Phone: Start: 10-05-2022 Glucose quantitative blood xcpt reagent strip Alexis Magallanes MD Work Phone: Start: 10-05-2022 Radiologic examination knee 1/2 views Cece VELÁSQUEZ-C Work Phone: Start: 10-05-2022 Glucose quantitative blood xcpt reagent strip Alexis Magallanes MD Work Phone: Start: 10-05-2022 Glucose quantitative blood xcpt reagent strip Alexis Magallanes MD Work Phone: Start: 10-05-2022 Basic metabolic panel calcium total Petra Rivers MD Work Phone: Start: 10-04-2022 Glucose quantitative blood xcpt reagent strip Petra Rivers MD Work Phone: Start: 10-04-2022 Radiologic exam chest single view Cece Alcala PA-C Work Phone: Start: 10-04-2022 End: 10-04-2022 Comprehensive [...] Ct lower extremity w/o contrast material Rudy VELÁSQUEZ-C Work Phone: Start: 10-03-2022 ABO and Rh group [Type] in Blood by Confirmatory method Rudy VELÁSQUEZ-C Work Phone: Start: 10-03-2022 End: 10-03-2022 Basic metabolic panel calcium total Rudy VELÁSQUEZ-C Work Phone: Start: 10-03-2022 C-reactive protein Yared [...] DTaP,Tdap,Td Vaccine (4 - Td or Tdap) [facility] Start: 03-06-2029 DTaP/Tdap/Td Vaccines (2 - Td or Tdap) DTaP/Tdap/Td Vaccines (2 - Td or Tdap) [facility] Start: 03-06-2029 Urine microalbumin profile [facility] Start: 03-06-2029 [facility] Start: 2028 RSV Vaccine (1 - 1-dose 75+ series) RSV Vaccine (1 - 1-dose 75+ series) [facility] Start: 12-27-2025 Diabetes mellitus screening [facility] Start: 06-20-2025 BP Controlled (<130/80) BP Controlled (<130/80) [facility] Start: 11-14-2024 Patient discharge [facility] Start: 11-13-2024 Consultation for treatment [facility] Start: 11-12-2024 MRI of brain without contrast [facility] Start: 11-09-2024 End: 11-09-2024 [facility] Start: 11-08-2024 Referral for physical therapy [facility] Start: 11-08-2024 Referral to occupational therapist [facility] Start: 11-08-2024 Care regimes management [facility] Start: 11-08-2024 Notification of physician [facility] Start: 11-08-2024 [facility] Start: 11-08-2024 Verification routine [facility] Start: 11-08-2024 Application of intermittent pneumatic compression device [facility] Start: 11-08-2024 End: 11-08-2024 Following clinical pathway protocol [facility] Start: 11-08-2024 Care regimes management [facility] Start: 11-08-2024 Lab findings surveillance [facility] Start: 11-08-2024 Nil by mouth [facility] Start: 11-08-2024 Notification of physician [facility] Start: 11-08-2024 Vital signs measurements [facility] Start: 11-08-2024 End: 11-08-2024 [facility] Start: 11-08-2024 Continuous positive airway pressure ventilation treatment [facility] Start: 11-08-2024 Admission procedure [facility] Start: 11-07-2024 End: 11-08-2024 [facility] Start: 10-13-2024 Influenza vaccination Influenza Vaccine (Season Ended) [facility] Start: 09-08-2024 End: 09-08-2024 Patient encounter procedure 09/08/2024 11:00 AM EDT Office Visit Endocrinology [address] [place] [address] Jeromy Lai MD [address] [place] [address] 4 wk f/u-Osteoporosis DXA scan 08/14/24 Endocrinology Comment on above: 4 wk f/u-Osteoporosis DXA scan 08/14/24 Start: 09-05-2024 Patient discharge [facility] Start: 09-04-2024 Referral to service [facility] Start: 09-04-2024 Removal of urinary catheter [facility] Start: 09-03-2024 Following clinical pathway protocol [facility] Start: 09-02-2024 Speech therapy assessment [facility] Start: 09-02-2024 Referral for physical therapy [facility] Start: 09-02-2024 Referral to occupational therapist [facility] Start: 09-02-2024 Referral to service [facility] Start: 09-02-2024 Consultation [facility] Start: 09-01-2024 Bacteria identified in Blood by Culture Blood Culture [facility] Start: 09-01-2024 Bacteria identified in Urine by Culture Urine Culture [facility] Start: 09-01-2024 Care planning and problem solving actions [facility] Start: 09-01-2024 [facility] Start: 09-01-2024 Following clinical pathway protocol [facility] Start: 09-01-2024 Application of intermittent pneumatic compression device [facility] Start: 09-01-2024 Cardiac monitoring [facility] Start: 09-01-2024 Catheterization of vein [facility] Start: 09-01-2024 Notification of physician [facility] Start: 09-01-2024 Referral to service [facility] Start: 09-01-2024 Vital signs measurements [facility] Start: 09-01-2024 Plain chest X-ray Chest 1 View (Portable) [facility] Start: 09-01-2024 XR Chest Single view [facility] Start: 09-01-2024 End: 09-01-2024 [facility] Start: 09-01-2024 D-dimer assay, quantitative [facility] Start: 09-01-2024 Continuous positive airway pressure ventilation treatment [facility] Start: 09-01-2024 MRI of lumbar spine Spine Lumbar (Routine) [facility] Start: 09-01-2024 Admission procedure [facility] Start: 09-01-2024 Hospital admission, emergency, from emergency room, medical nature [facility] Start: 09-01-2024 End: 09-01-2024 [facility] Start: 09-01-2024 Consultation [facility] Start: 09-01-2024 Patient referral to dietitian [facility] Start: 08-14-2024 End: 08-14-2024 Patient encounter procedure 08/14/2024 10:00 AM EDT Appointment [facility] [address] [place] [id number] Osteoporosis without current pathological fracture, unspecified osteoporosis type [M81.0] [facility] Comment on above: Osteoporosis without current pathologica l fracture, unspecified osteoporosis type [M81.0] Start: 08-11-2024 End: 11-10-2024 25-hydroxyvitamin D3 [Mass/volume] in Serum or Plasma VITAMIN D 25 HYDROXY Lab Routine Osteoporosis without current pathological fracture, unspecified osteoporosis type Expected: 08/11/2024, Expires: 11/10/2024 [facility] Work Phone: Comment on above: Expected: 08/11/2024, Expires: Start: 08-11-2024 End: 11-10-2024 ALK PHOS BONE SPEC ALK PHOS BONE SPEC Lab Routine Osteoporosis without current pathological fracture, unspecified osteoporosis type Expected: 08/11/2024, Expires: 11/10/2024 [facility] Comment on above: Expected: 08/11/2024, Expires: Start: 08-11-2024 End: 11-10-2024 Calcium.ionized [Moles/volume] in Blood CALCIUM, IONIZED Lab Routine Osteoporosis without current pathological fracture, unspecified osteoporosis type Expected: 08/11/2024, Expires: 11/10/2024 [facility] Comment on above: Expected: 08/11/2024, Expires: Start: 08-11-2024 End: 11-10-2024 Collagen crosslinked C-telopeptide [Mass/volume] in Serum or Plasma C TELOPEPTIDE, BETA Lab Routine Osteoporosis without current pathological fracture, unspecified osteoporosis type Expected: 08/11/2024, Expires: 11/10/2024 [facility] Comment on above: Expected: 08/11/2024, Expires: Start: 08-11-2024 End: 11-10-2024 Comprehensive metabolic 2000 panel - Serum or Plasma COMPREHENSIVE METABOLIC PANEL Lab Routine Osteoporosis without current pathological fracture, unspecified osteoporosis type Expected: 08/11/2024, Expires: 11/10/2024 [facility] Comment on above: Expected: 08/11/2024, Expires: Start: 08-11-2024 End: 11-10-2024 Magnesium [Mass/volume] in Serum or Plasma MAGNESIUM Lab Routine Osteoporosis without current pathological fracture, unspecified osteoporosis type Expected: 08/11/2024, Expires: 11/10/2024 [facility] Comment on above: Expected: 08/11/2024, Expires: Start: 08-11-2024 End: 11-10-2024 Parathyrin.intact [Mass/volume] in Serum or Plasma PTH INTACT Lab Routine Osteoporosis without current pathological fracture, unspecified osteoporosis type Expected: 08/11/2024, Expires: 11/10/2024 [facility] Comment on above: Expected: 08/11/2024, Expires: Start: 08-11-2024 End: 11-10-2024 Phosphate [Mass/volume] in Serum or Plasma PHOSPHORUS INORGANIC Lab Routine Osteoporosis without current pathological fracture, unspecified osteoporosis type Expected: 08/11/2024, Expires: 11/10/2024 [facility] Comment on above: Expected: 08/11/2024, Expires: Start: 08-11-2024 End: 08-11-2024 Patient encounter procedure 08/11/2024 10:00 AM EDT Office Visit Endocrinology [address] [place] [id number] Jeromy Lai MD [address] [facility] [place] [address] Osteoporosis without current pathological fracture, unspecified osteoporosis typ Endocrinology Comment on above: Osteoporosis without current pathologica l fracture, unspecified osteoporosis typ Start: 06-20-2024 End: 09-19-2024 FLOW CYTOMETRY FOR LEUKEMIA/LYMPHOMA (FCLL) [facility] Comment on above: Expected: 06/20/2024, Expires: Start: 06-20-2024 End: 09-19-2024 Immunodeficiency panel - Blood by Flow cytometry (FC) [facility] Comment on above: Expected: 06/20/2024, Expires: Start: 06-20-2024 End: 09-19-2024 MONOCLONAL PROT UR W/INTERP [facility] Work Phone: Comment on above: Expected: 06/20/2024, Expires: Start: 06-20-2024 End: 09-19-2024 MONOCLONAL PROTEIN, SERUM (BLOOD) [facility] Comment on above: Expected: 06/20/2024, Expires: Start: 06-20-2024 End: 09-19-2024 PROTEIN ELECT RND UR W/[facility] Comment on above: Expected: 06/20/2024, Expires: Start: 06-20-2024 End: 09-19-2024 PROTEIN ELECTROPHORESIS SERUM W/[facility] Comment on above: Expected: 06/20/2024, Expires: Start: 06-20-2024 End: 06-20-2024 ambulatory 06/20/2024 11:40 AM EDT Visit (SP) Office Hematology/Oncology [address] [place] [id number] Regina Oden DO [address] [facility] [place] [address] OV/PER TE 06/10 Hematology/Oncology Comment on above: OV/PER TE 06/10 Start: 05-19-2024 [facility] Start: 05-18-2024 [facility] Start: 05-17-2024 Patient discharge [facility] Start: 05-16-2024 [facility] Start: 05-16-2024 [facility] Start: 05-15-2024 Referral to coke still cleaner [facility] Start: 05-14-2024 [facility] Start: 05-14-2024 Admission procedure [facility] Start: 05-13-2024 Following clinical pathway protocol [facility] Start: 05-13-2024 Assessment of risk of venous thromboembolism [facility] Start: 05-13-2024 Care regimes management [facility] Start: 05-13-2024 Fall prevention [facility] Start: 05-13-2024 Inhalation therapy procedure [facility] Start: 05-13-2024 Insertion of catheter into peripheral vein [facility] Start: 05-13-2024 Introduction of urinary catheter [facility] Start: 05-13-2024 Measuring intake and output [facility] Start: 05-13-2024 Notification of physician [facility] Start: 05-13-2024 Oxygen therapy [facility] Start: 05-13-2024 Providing care according to standard [facility] Start: 05-13-2024 Provision of activity privileges [facility] Start: 05-13-2024 Referral to occupational therapist [facility] Start: 05-13-2024 Referral to service [facility] Start: 05-13-2024 End: 05-13-2024 [facility] Start: 05-13-2024 Dual pressure spontaneous ventilation support [facility] Start: 05-13-2024 Verification routine [facility] Start: 05-13-2024 Admission procedure [facility] Start: 05-13-2024 Hospital admission, emergency, from emergency room, medical nature [facility] Start: 05-13-2024 End: 05-14-2024 [facility] Start: 05-13-2024 Consultation [facility] Start: 04-24-2024 Patient discharge [facility] Start: 04-21-2024 [facility] Start: 04-21-2024 Speech therapy assessment [facility] Start: 04-21-2024 Care planning and problem solving actions [facility] Start: 04-20-2024 Following clinical pathway protocol [facility] Start: 04-20-2024 Aspiration precautions [facility] Start: 04-20-2024 Assessment of risk of venous thromboembolism [facility] Start: 04-20-2024 Care regimes management [facility] Start: 04-20-2024 Elevation of head of bed [facility] Start: 04-20-2024 Fall prevention [facility] Start: 04-20-2024 Inhalation therapy procedure [facility] Start: 04-20-2024 Insertion of catheter into peripheral vein [facility] Start: 04-20-2024 Introduction of urinary catheter [facility] Start: 04-20-2024 Measuring intake and output [facility] Start: 04-20-2024 Notification of physician [facility] Start: 04-20-2024 Patient referral to dietitian [facility] Start: 04-20-2024 Providing care according to standard [facility] Start: 04-20-2024 Provision of activity privileges [facility] Start: 04-20-2024 Referral to occupational therapist [facility] Start: 04-20-2024 Referral to service [facility] Start: 04-20-2024 Vital signs measurements [facility] Start: 04-20-2024 End: 04-20-2024 [facility] Start: 04-20-2024 Dual pressure spontaneous ventilation support [facility] Start: 04-20-2024 Gas panel - Arterial blood [facility] Start: 04-20-2024 Serum inorganic phosphate measurement [facility] Start: 04-20-2024 Verification routine [facility] Start: 04-20-2024 Admission procedure [facility] Start: 04-20-2024 Hospital admission, emergency, from emergency room, medical nature [facility] Start: 04-20-2024 [facility] Start: 04-20-2024 [facility] Start: 04-20-2024 End: 04-20-2024 [facility] Start: 04-20-2024 Blood culture [facility] Start: 04-20-2024 Patient referral to dietitian [facility] Start: 02-17-2024 [facility] Start: 02-17-2024 Patient discharge [facility] Start: 02-16-2024 Speech therapy assessment [facility] Start: 02-15-2024 Speech therapy assessment [facility] Start: 02-14-2024 [facility] Start: 02-14-2024 Care planning and problem solving actions [facility] Start: 02-13-2024 End: 02-14-2024 Following clinical pathway protocol [facility] Start: 02-13-2024 Assessment of risk of venous thromboembolism [facility] Start: 02-13-2024 Care regimes management [facility] Start: 02-13-2024 Catheterization of vein [facility] Start: 02-13-2024 Elevation of head of bed [facility] Start: 02-13-2024 Incentive spirometry [facility] Start: 02-13-2024 Inhalation therapy procedure [facility] Start: 02-13-2024 Insertion of catheter into peripheral vein [facility] Start: 02-13-2024 Measuring intake and output [facility] Start: 02-13-2024 Notification of physician [facility] Start: 02-13-2024 Oxygen therapy [facility] Start: 02-13-2024 End: 02-14-2024 Patient referral to dietitian [facility] Start: 02-13-2024 Providing care according to standard [facility] Start: 02-13-2024 Referral to occupational therapist [facility] Start: 02-13-2024 Referral to service [facility] Start: 02-13-2024 Removal of urinary catheter [facility] Start: 02-13-2024 Vital signs measurements [facility] Start: 02-13-2024 End: 02-13-2024 [facility] Start: 02-13-2024 Admission procedure [facility] Start: 02-13-2024 Advance Directive Discussion Advance Directive Discussion [facility] Start: 02-13-2024 Medicare Advantage Annual Wellness Visit Medicare Advantage Annual Wellness Visit [facility] Start: 01-05-2024 Patient discharge [facility] Start: 01-03-2024 Removal of urinary catheter [facility] Start: 01-01-2024 Care planning and problem solving actions [facility] Start: 01-01-2024 Inhalation therapy procedure [facility] Start: 12-31-2023 [facility] Start: 12-30-2023 End: 12-31-2023 [facility] Start: 12-30-2023 Application of intermittent pneumatic compression device [facility] Start: 12-30-2023 Following clinical pathway protocol [facility] Start: 12-30-2023 Aspiration precautions [facility] Start: 12-30-2023 Assessment of risk of venous thromboembolism [facility] Start: 12-30-2023 Care regimes management [facility] Start: 12-30-2023 Elevation of head of bed [facility] Start: 12-30-2023 Fall prevention [facility] Start: 12-30-2023 Insertion of catheter into peripheral vein [facility] Start: 12-30-2023 Introduction of urinary catheter [facility] Start: 12-30-2023 Measuring intake and output [facility] Start: 12-30-2023 Methicillin resistant Staphylococcus aureus screening test [facility] Start: 12-30-2023 Notification of physician [facility] Start: 12-30-2023 Patient referral to dietitian [facility] Start: 12-30-2023 Providing care according to standard [facility] Start: 12-30-2023 Provision of activity privileges [facility] Start: 12-30-2023 Referral to video technician [facility] Start: 12-30-2023 Referral to gastroenterology service [facility] Start: 12-30-2023 Referral to occupational therapist [facility] Start: 12-30-2023 Referral to service [facility] Start: 12-30-2023 Tobacco use cessation education [facility] Start: 12-30-2023 Vital signs measurements [facility] Start: 12-30-2023 Admission procedure [facility] Start: 12-30-2023 Dual pressure spontaneous ventilation support [facility] Start: 12-30-2023 Patient referral to dietitian [facility] Start: 12-28-2023 Hemoglobin A1c measurement Diabetes: Hemoglobin A1C [facility] Start: 10-14-2023 Covid-19 Vaccine () Covid-19 Vaccine () [facility] Start: 10-14-2023 Influenza vaccination [facility] Start: 10-05-2023 Diabetic foot examination [facility] Start: 10-05-2023 Hemoglobin A1c measurement [facility] Start: 09-05-2023 BP CONTROLLED (<130/80) BP CONTROLLED (<130/80) [facility] Start: 06-27-2023 Hemoglobin A1c measurement HbA1C [facility] Start: 05-22-2023 End: 05-22-2023 Patient encounter procedure 05/22/2023 3:20 PM EDT Office Visit [facility] [address] [facility] [address] [place] [phone] Nicola Adhikari MD [address] [facility] [address] [place] [address] [facility] Start: 05-22-2023 End: 05-20-2024 XR Femur - right 2 Views XR femur right 2+ views Imaging Routine Closed displaced intertrochanteric fracture of right femur with routine healing, subsequent encounter Expected: 05/22/2023, Expires: 05/20/2024 [facility] Work Phone: Comment on above: Expected: 05/22/2023, Expires: Start: 04-18-2023 Patient discharge [facility] Start: 04-17-2023 Care planning and problem solving actions [facility] Start: 04-15-2023 End: 04-15-2023 [facility] Start: 04-15-2023 Triacylglycerol lipase measurement [facility] Start: 04-14-2023 Following clinical pathway protocol [facility] Start: 04-14-2023 Application of intermittent pneumatic compression device [facility] Start: 04-14-2023 Aspiration precautions [facility] Start: 04-14-2023 Assessment of risk of venous thromboembolism [facility] Start: 04-14-2023 Care regimes management [facility] Start: 04-14-2023 Insertion of catheter into peripheral vein [facility] Start: 04-14-2023 Measuring intake and output [facility] Start: 04-14-2023 Notification of physician [facility] Start: 04-14-2023 Providing care according to standard [facility] Start: 04-14-2023 Provision of activity privileges [facility] Start: 04-14-2023 Referral to gastroenterology service [facility] Start: 04-14-2023 Referral to occupational therapist [facility] Start: 04-14-2023 Referral to service [facility] Start: 04-14-2023 [facility] Start: 04-14-2023 End: 04-14-2023 Blood culture [facility] Start: 04-14-2023 Verification routine [facility] Start: 04-14-2023 Admission procedure [facility] Start: 04-14-2023 Hospital admission, emergency, from emergency room, medical nature [facility] Start: 04-14-2023 End: 04-14-2023 [facility] Start: 04-14-2023 Patient referral to dietitian [facility] Start: 04-06-2023 Hemoglobin A1c/Hemoglobin.total in Blood HBA1C [facility] Start: 04-03-2023 End: 04-02-2024 XR Femur - right 2 Views XR femur right 2+ views Imaging Routine Closed displaced intertrochanteric fracture of right femur with routine healing, subsequent encounter Expected: 04/03/2023, Expires: 04/02/2024 [facility]: Comment on above: Expected: 04/03/2023, Expires: Start: 04-03-2023 End: 04-03-2023 Patient encounter procedure 04/03/2023 1:30 PM EST Office Visit [facility] [address] [facility] [address] [place] [address] Nicola Adhikari MD 1 [facility] [address] [place] [address] [facility] Start: 02-12-2023 Advance Directive Discussion Advance Directive Discussion [facility] Start: 02-12-2023 Medicare Advantage Annual Wellness Visit Medicare Advantage Annual Wellness Visit [facility] Start: 01-01-2023 End: 01-01-2023 Patient encounter procedure 01/01/2023 11:30 AM EST Office Visit [facility] [address] [facility] [address] [place] [phone] Phyllis Guevara PA-C [address] [facility] [address] [place] [address] [facility] Start: 12-29-2022 End: 12-30-2023 XR Hip - left 3 Views XR hip left 2 or 3 views Imaging Routine S/P total left hip arthroplasty Expected: 12/29/2022, Expires: 12/30/2023 [facility] Work Phone: Comment on above: Expected: 12/29/2022, Expires: Start: 12-25-2022 End: 12-25-2022 Patient encounter procedure 12/25/2022 11:00 AM EST Office Visit [facility] [address] [facility] [address] [place] [phone] Phyllis Guevara PA-C [address] [facility] [address] [place] [address] [facility] Start: 12-23-2022 [facility] Start: 12-23-2022 [facility] Start: 11-06-2022 End: 01-06-2023 FLOW CYTOMETRY FOR LEUKEMIA/LYMPHOMA (FCLL) FLOW CYTOMETRY FOR LEUKEMIA/LYMPHOMA (FCLL) Lab Routine Lymphocytosis Expected: 11/06/2022, Expires: 01/06/2023 [facility] Work Phone: Comment on above: Expected: 11/06/2022, Expires: 3 Start: 11-06-2022 End: 11-06-2022 ambulatory [facility] Start: 11-06-2022 End: 11-06-2022 Patient encounter procedure 11/06/2022 1:30 PM EDT Office Visit [facility] [address] [facility] [address] [place] [address] Phyllis Guevara PA-C [address] [facility] [address] [place] [address] [facility] Start: 10-13-2022 COVID-19 Vaccine ( season) COVID-19 Vaccine ( season) [facility] Start: 10-13-2022 Influenza vaccination [facility] Start: 10-13-2022 [facility] Start: 10-03-2022 End: 12-03-2022 CBC W Ordered Manual Differential panel - Blood PATHOLOGIST INTERPRETATION WITH CBC AND DIFF Lab Routine 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 Expected: 10/03/2022, Expires: 12/03/2022 [facility] Work Phone: Comment on above: Expected: 10/03/2022, Expires: 3 Start: 10-03-2022 End: 12-03-2022 FLOW CYTOMETRY FOR LEUKEMIA/LYMPHOMA (FCLL) FLOW CYTOMETRY FOR LEUKEMIA/LYMPHOMA (FCLL) Lab Routine 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 Expected: 10/03/2022, Expires: 12/03/2022 [facility] Work Phone: Comment on above: Expected: 10/03/2022, Expires: 3 Start: 10-03-2022 End: 12-03-2022 Immunodeficiency panel - Blood by Flow cytometry (FC) IMMUNODEFICIENCY CDC Lab Routine 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 Expected: 10/03/2022, Expires: 12/03/2022 [facility] Work Phone: Comment on above: Expected: 10/03/2022, Expires: 3 Start: 10-03-2022 End: 12-03-2022 T CELL PANEL (GAMMA, BETA) T CELL PANEL (GAMMA, BETA) Lab Routine 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 Expected: 10/03/2022, Expires: 12/03/2022 [facility] Work Phone: Comment on above: Expected: 10/03/2022, Expires: 3 Start: 09-18-2022 Diagnostic bone marrow biopsies & aspirations DX BONE MARROW BX & ASPIR [facility] Start: 09-18-2022 Procedure [facility] Start: 09-18-2022 Catheterization of vein [facility] Start: 09-18-2022 Patient discharge [facility] Start: 09-18-2022 Vital signs measurements [facility] Start: 09-18-2022 Oxygen therapy [facility] Start: 09-18-2022 Following clinical pathway protocol [facility] Start: 08-16-2022 Patient discharge [facility] Start: 08-16-2022 Radiologic examination, osseous survey, complete Bone Survey Comp(Axial&Append) [facility] Start: 08-16-2022 XR Bones Survey Views [facility] Start: 08-16-2022 MRI of thoracic spine with contrast [facility] Start: 08-16-2022 MRI of cervical spine with contrast Spine Cervical W/WO Contrast [facility] Start: 08-16-2022 MRI of lumbar spine with contrast Spine Lumbar W/WO Contrast [facility] Start: 08-16-2022 Urine protein electrophoresis [facility] Start: 08-16-2022 Serum immunofixation [facility] Start: 08-15-2022 End: 08-15-2022 Consultation [facility] Start: 08-15-2022 Physiotherapy of chest [facility] Start: 08-14-2022 Bacterial culture Body Fluid Culture [facility] Start: 08-14-2022 Consultation [facility] Start: 08-14-2022 Vital signs measurements [facility] Start: 08-14-2022 [facility] Start: 08-10-2022 Administration of blood product [facility] Start: 08-07-2022 Cardiac monitoring [facility] Start: 08-07-2022 Catheterization of vein [facility] Start: 08-07-2022 Elevation of head of bed [facility] Start: 08-07-2022 Exercises [facility] Start: 08-07-2022 Implementation of planned interventions [facility] Start: 08-07-2022 Notification of physician [facility] Start: 08-07-2022 Oxygen therapy [facility] Start: 08-07-2022 Referral to occupational therapist [facility] Start: 08-07-2022 Referral to service [facility] Start: 08-07-2022 Speech therapy assessment [facility] Start: 08-07-2022 Tobacco use cessation education [facility] Start: 08-07-2022 End: 08-07-2022 [facility] Start: 08-07-2022 End: 08-07-2022 Administration of blood product [facility] Start: 08-07-2022 [facility] Start: 08-06-2022 End: 08-06-2022 Measuring intake and output [facility] Start: 08-06-2022 Care regimes management [facility] Start: 08-06-2022 Notification of physician [facility] Start: 08-06-2022 [facility] Start: 08-06-2022 End: 08-06-2022 [facility] Start: 08-06-2022 Ambulation therapy management [facility] Start: 08-06-2022 Application of device [facility] Start: 08-06-2022 Exercises [facility] Start: 08-06-2022 Following clinical pathway protocol [facility] Start: 08-06-2022 Introduction of urinary catheter [facility] Start: 08-06-2022 Neurovascular assessment [facility] Start: 08-06-2022 Patient education [facility] Start: 08-06-2022 Provision of activity privileges [facility] Start: 08-06-2022 Referral to occupational therapist [facility] Start: 08-06-2022 Referral to service [facility] Start: 08-06-2022 Vital signs measurements [facility] Start: 08-06-2022 Wound care [facility] Start: 08-06-2022 End: 08-06-2022 Measuring intake and output [facility] Start: 08-06-2022 End: 08-06-2022 Measuring intake and output [facility] Start: 08-05-2022 Application of intermittent pneumatic compression device [facility] Start: 08-05-2022 Following clinical pathway protocol [facility] Start: 08-05-2022 Assessment of risk of venous thromboembolism [facility] Start: 08-05-2022 Catheterization of vein [facility] Start: 08-05-2022 Insertion of catheter into peripheral vein [facility] Start: 08-05-2022 Providing care according to standard [facility] Start: 08-05-2022 Recommendation to continue with treatment [facility] Start: 08-05-2022 Referral to [facility] Start: 08-05-2022 Vitamin D, 25-hydroxy measurement [facility] Start: 08-05-2022 End: 08-05-2022 Measuring intake and output [facility] Start: 08-05-2022 End: 08-05-2022 [facility] Start: 08-05-2022 End: 08-05-2022 Application of ice collar, cap or bag [facility] Start: 08-05-2022 End: 08-05-2022 Bedrest [facility] Start: 08-05-2022 End: 08-05-2022 Neurovascular assessment [facility] Start: 08-05-2022 End: 08-05-2022 Skin care [facility] Start: 08-05-2022 Verification routine [facility] Start: 08-05-2022 Admission procedure [facility] Start: 08-05-2022 [facility] Start: 08-05-2022 Consultation [facility] Start: 08-05-2022 [facility] Start: 07-07-2022 Patient referral [facility] Work Phone: Start: 02-12-2022 ADVANCE DIRECTIVE DISCUSSION ADVANCE DIRECTIVE DISCUSSION [facility] Start: 12-12-2019 Pneumococcal Vaccine: 50+ (3 of 3 - PCV20 or PCV21) Pneumococcal Vaccine: 50+ (3 of 3 - PCV20 or PCV21) [facility] Start: 2018 BONE DENSITY BONE DENSITY [facility] Start: 2018 Bone Density Screening Bone Density Screening [facility] Start: 2018 Pneumococcal Vaccine: 65+ (3 of 3 - PPSV23 or PCV20) Pneumococcal Vaccine: 65+ (3 of 3 - PPSV23 or PCV20) [facility] Start: 2018 Pneumococcal Vaccine: 65+ Years (3 - PPSV23 if available, else PCV20) Pneumococcal Vaccine: 65+ Years (3 - PPSV23 if available, else PCV20) [facility] Start: 2018 Pneumococcal Vaccine: 65+ Years (3 - PPSV23 or PCV20) Pneumococcal Vaccine: 65+ Years (3 - PPSV23 or PCV20) [facility] Start: 2018 Pneumococcal Vaccine: 65+ Years (3 of 3 - PPSV23 or PCV20) Pneumococcal Vaccine: 65+ Years (3 of 3 - PPSV23 or PCV20) [facility] Start: 2018 Screening for osteoporosis Bone Density Screening [facility] Start: 2018 [facility] Start: 10-02-2018 Hepatitis B surface antibody level LDL CHOLESTEROL [facility] Start: 2013 Hepatitis B Vaccine (1 of 3 - Risk 3-dose series) Hepatitis B Vaccine (1 of 3 - Risk 3-dose series) [facility] Start: 2013 RSV Immunization aged 60 or older (1 - 1-dose 60+ series) RSV Immunization aged 60 or older (1 - 1-dose 60+ series) [facility] Start: 2013 RSV Vaccine (1 - 1-dose 60+ series) RSV Vaccine (1 - 1-dose 60+ series) [facility] Start: 2013 [facility] Start: 01-14-2013 Glaucoma screening Dilated Retinal Exam [facility] Start: 01-14-2013 Hepatitis C antibody, confirmatory test DILATED RETINAL EXAM [facility] Start: 11-02-2012 3 comp foot exam completed DIABETIC FOOT EXAM [facility] Start: 11-02-2012 Diabetic foot examination Diabetic Foot Exam [facility] Start: 11-02-2012 Hepatitis B screening URINE ALBUMIN:CREATININE RATIO [facility] Start: 09-08-2012 Hemoglobin A1c/Hemoglobin.total in Blood HBA1C [facility] Start: 07-27-2009 Colonoscopy COLONOSCOPY [facility] Start: 07-27-2009 COLORECTAL CANCER SCREENING COLORECTAL CANCER SCREENING [facility] Start: 07-27-2009 Mammography [facility] Start: 07-27-2009 Screening for malignant neoplasm of breast Mammogram Screening [facility] Start: 07-27-2009 Screening for malignant neoplasm of colon [facility] Start: 02-20-2008 Pneumococcal Vaccine: 65+ (2 - PCV) Pneumococcal Vaccine: 65+ (2 - PCV) [facility] Start: 02-20-2008 PNEUMOCOCCAL: 65+ (2 - PCV) PNEUMOCOCCAL: 65+ (2 - PCV) [facility] Start: 10-25-2003 SHINGRIX VACCINE (1 of 2) SHINGRIX VACCINE (1 of 2) [facility] Start: 10-25-2003 [facility] [facility] Start: 1998 COLOGUARD (FIT-DNA) COLOGUARD (FIT-DNA) [facility] Start: [address] COLONOGRAPHY [facility] Start: 1998 FECAL OCCULT BLOOD FECAL OCCULT BLOOD [facility] Start: 1998 Screening for malignant neoplasm of colon [facility] Start: 1998 SIGMOIDOSCOPY SIGMOIDOSCOPY [facility] Start: 1993 Screening for malignant neoplasm of breast [facility] Start: 1972 Urine microalbumin profile [facility] Start: 1972 [facility] Start: 10-25-1971 ANNUAL PCP TEAM CHRONIC DISEASE VISIT ANNUAL PCP TEAM CHRONIC DISEASE VISIT [facility] Start: 10-25-1971 BP CONTROLLED (<130/80) BP CONTROLLED (<130/80) [facility] in Start: 10-25-1971 HEPATITIS C SCREENING HEPATITIS C SCREENING [facility] Start: 10-25-1971 Hepatitis C screening [facility] Start: 1965 Depression Screening Depression Screening [facility] Start: 1965 Depresssion Monitoring Depresssion Monitoring [facility] Start: 1965 [facility] Start: 10-25-1963 Glaucoma screening [facility] Start: 10-25-1963 Preventive dental service [facility] Start: 04-23-1956 COVID-19 VACCINE (#1) COVID-19 VACCINE (#1) [facility] Start: 04-23-1954 [facility] Start: 1953 Lipid panel [facility] Start: 1953 Medicare Advantage Annual Wellness Visit (AWV) Medicare Advantage Annual Wellness Visit (AWV) [facility] Start: 1953 Screening for malignant neoplasm of colon [facility] Start: 1953 Screening for osteoporosis [facility] Start: 1953 [facility] Aerobic and Anaerobi c Culture with Stain [facility] [employer] [facility] Work Phone: Aerobic and Anaerobi c Culture with Stain [facility] Albumin [Moles/volum e] in Serum or Plasma [facility] Albumin/Globulin ratio [facility] Anion gap in Serum o r Plasma [facility] Anion gap in Serum o r Plasma [facility] Anion gap in Serum o r Plasma [facility] Bacteria identified in Unspecified specimen by Anaerobe culture [facility] Bacteria identified in Unspecified specimen by Anaerobe culture [facility] Bacteria identified in Urine by Culture [facility] End: 09-10-2025 BD DXA TRABECULAR BONE SCORE (TBS) BD DXA TRABECULAR BONE SCORE (TBS) Radiology Routine Osteoporosis without current pathological fracture, unspecified osteoporosis type 1 Occurrences starting 08/11/2024 until 09/10/2025 [facility] Comment on above: 1 Occurrences starting 08/11/2024 until 09/10/2025 BUN/Creatinine ratio [facility] BUN/Creatinine ratio [facility] BUN/Creatinine ratio [facility] Calcium [Mass/volume ] in Serum or Plasma [facility] Calcium [Mass/volume ] in Serum or Plasma [facility] Calcium [Mass/volume ] in Serum or Plasma [facility] Cancer Ag 125 [Units/volume] in Serum or Plasma [facility] Cancer Ag 19-9 [Units/volume] in Serum or Plasma [facility] Carbon dioxide, tota l [Moles/volume] in Central venous blood [facility] Carbon dioxide, tota l [Moles/volume] in Central venous blood [facility] Carbon dioxide, tota l [Moles/volume] in Central venous blood [facility] Carcinoembryonic Ag [Mass/volume] in Serum or Plasma [facility] Creatinine [Mass/vol ume] in Serum or Plasma [facility] Creatinine [Mass/vol ume] in Serum or Plasma [facility] Creatinine [Mass/vol ume] in Serum or Plasma [facility] CT Abdomen and Pelvi s W contrast IV [facility] Cytology report of B troy fluid Cyto stain [facility] End: 09-10-2025 DXA Skeletal system.axial Views for bone density and vertebral fracture DXA-AXIAL SKELETON WITH VFA Radiology Routine Osteoporosis without current pathological fracture, unspecified osteoporosis type 1 Occurrences starting 08/11/2024 until 09/10/2025 [facility] Comment on above: 1 Occurrences starting 08/11/2024 until 09/10/2025 Electrophoresis: [id number] [facility] Electrophoresis: [id number] [facility] Electrophoresis: hollie ma globulin [facility] Erythrocyte mean corpuscular volume determination [facility] Erythrocyte mean corpuscular volume determination [facility] Erythrocyte mean corpuscular volume determination [facility] Fluid sample globuli n level [facility] Folate [Moles/volume ] in Serum or Plasma [facility] Globulin measurement [facility] Globulin measurement [facility] Glucose [Mass/volume ] in Serum or Plasma [facility] Glucose [Mass/volume ] in Serum or Plasma [facility] Glucose [Mass/volume ] in Serum or Plasma [facility] Hematocrit [Volume Fraction] of Blood [facility] Hematocrit [Volume Fraction] of Blood [facility] Hematocrit [Volume Fraction] of Blood [facility] Hemoglobin [Mass/vol ume] in Blood [facility] Hemoglobin [Mass/vol ume] in Blood [facility] Hemoglobin [Mass/vol ume] in Blood [facility] IgA [Mass/volume] in Serum or Plasma [facility] IgG [Mass/volume] in Serum or Plasma [facility] IgM [Mass/volume] in Serum or Plasma [facility] Lactic acid measurement [facility] Leukocytes [#/volume ] in Blood [facility] Leukocytes [#/volume ] in Blood [facility] Leukocytes [#/volume ] in Blood [facility] Magnesium measurement [facility] Magnesium measurement [facility] Mean corpuscular hemoglobin concentration determination [facility] Mean corpuscular hemoglobin concentration determination [facility] Mean corpuscular hemoglobin concentration determination [facility] Mean corpuscular hemoglobin determination [facility] Mean corpuscular hemoglobin determination [facility] Mean corpuscular hemoglobin determination [facility] Measurement of monoclonal protein concentration [facility] Measurement of renal function [facility] Measurement of renal function [facility] Measurement of renal function [facility] Microscopic observat ion [Identifier] in Unspecified specimen by Acid fast stain [facility] Neutrophil count [facility] Neutrophil count [facility] Neutrophil count [facility] Neutrophil percent differential count [facility] Neutrophil percent differential count [facility] Neutrophil percent differential count [facility] OUTSIDE PROCEDURE SCAN OUTSIDE P ROCEDURE SCAN Procedures Ordered: 10/03/2022 [facility] Comment on above: Ordered: 10/03/2022 Patient Education [facility] Work Phone: Patient referral [facility] Work Phone: Platelets [#/volume] in Blood [facility] Platelets [#/volume] in Blood [facility] Platelets [#/volume] in Blood [facility] Potassium measurement [facility] Potassium measurement [facility] Potassium measurement [facility] Protein [Mass/volume ] in Urine [facility] Protein electrophore sis panel - Serum or Plasma [facility] Protein measurement, urine [facility] Red blood cell count [facility] Red blood cell count [facility] Red blood cell count [facility] Red cell distributio n width determination [facility] Red cell distributio n width determination [facility] Red cell distributio n width determination [facility] Serum chloride measurement [facility] Serum chloride measurement [facility] Serum chloride measurement [facility] Serum inorganic phosphate measurement [facility] Serum protein electrophoresis [facility] Sodium measurement [facility] Sodium measurement [facility] Sodium measurement [facility] Tissue exam [facility] Troponin T.cardiac [Mass/volume] in Serum or Plasma by High sensitivity method [facility] Troponin T.cardiac [Mass/volume] in Serum or Plasma by High sensitivity method [facility] Urea nitrogen [Mass/volume] in Serum or Plasma [facility] Urea nitrogen [Mass/volume] in Serum or Plasma [facility] Urea nitrogen [Mass/volume] in Serum or Plasma [facility] Urine albumin measurement [facility] Urine culture [facility] Urine culture [facility] End: 12-23-2022 US TRAUMA FAST POCUS [facility] Work Phone: [facility] Immunizations Immunization Date Immunization Notes Care Provider Alireza engel 05-13-2024 tetanus toxoid, redu lilibeth diphtheria toxoid, and acellular pertussis vaccine, adsorbed Rudy Boyer TRAUMA COORDINATOR-C Work Phone: [facility] 02-09-[address] Cici Calderon Work Phone: [facility] 08-25-[address] Cici Calderon Work Phone: [facility] 03-06-2019 tetanus toxoid, redu lilibeth diphtheria toxoid, and acellular pertussis vaccine, adsorbed [facility] 12-31-2018 Influenza virus vaccine [facility] 12-31-2018 influenza, seasonal, injectable, preservative free Phyllis LANDAVERDEC Work Phone: [facility] 12-31-2018 Rudy Boyer TRAUMA COORDINATOR -C Work Phone: [facility] 12-31-2018 influenza virus vacc ine, unspecified formulation Cici Martinez MD Work Phone: [facility] 12-11-2014 pneumococcal conjuga te vaccine, [address] Cici Calderon Work Phone: [facility] 11-18-2010 influenza virus vacc ine, unspecified formulation Regina Oden DO Work Phone: [facility] Work Phone: 11-26-2009 influenza virus vacc ine, unspecified formulation Regina Oden DO Work Phone: [facility] Work Phone: 02-19-2007 pneumococcal polysaccharide vaccine, 23 valent Regina Oden DO Work Phone: [facility] Work Phone: 01-29-2007 influenza virus vacc ine, unspecified formulation Regina Oden DO Work Phone: [facility] Work Phone: NEGATED: Highlighted row has not occurred!12-24-2022 Esteban Hawley MD Work Phone: [facility] Comment on above: Deferred: Giseli cation Payers Date Payer Category Payer Unknown [id number] 2023 Self-pay [id number] 2023 Medicare (Managed Care) 1.2. [id number] 315 2023 Unknown [id number] 2022 Medicare [id number] 2022 Private Health Insurance [id number] 2020 Medicaid [id number] 2020 Unknown [id number] 2019 Medicaid [id number] 2006 Medicare [id number] Private Health Insurance Unknown [id number] 2.16.8 40.1.792374.3.579.2.462 Unknown [id number] 2.16.8 40.1.626121.3.579.2.462 Unknown [id number] 2.16.8 40.1.033858.3.579.2.462 Unknown [id number] 2.16.8 40.1.814292.3.579.2.462 Unknown [id number] 2.16.8 40.1.850936.3.579.2.462 Unknown [id number] 2.16.8 40.1.249659.3.579.2.462 Unknown [id number] 2.16.8 40.1.300130.3.579.2.462 Unknown [id number] 2.16.8 40.1.730662.3.579.2.462 Unknown [id number] 2.16.8 40.1.117632.3.579.2.462 Unknown [id number] 2.16.8 40.1.723625.3.579.2.462 Unknown [id number] 2.16.8 40.1.605144.3.579.2.462 Unknown [id number] 2.16.8 40.1.353344.3.579.2.462 Unknown [id number] 2.16.8 40.1.024208.3.579.2.462 Unknown [id number] 2.16.8 40.1.874987.3.579.2.462 Unknown [id number] 2.16.8 40.1.354358.3.579.2.462 Unknown [id number] 2.16.8 40.1.283975.3.579.2.462 Unknown [id number] 2.16.8 40.1.719658.3.579.2.462 Unknown [id number] 2.16.8 40.1.109659.3.579.2.462 Unknown [id number] 2.16.8 40.1.680444.3.579.2.462 Unknown [id number] 2.16.8 40.1.784070.3.579.2.462 Unknown [id number] 2.16.8 40.1.021508.3.579.2.462 Unknown [id number] 2.16.8 40.1.393537.3.579.2.462 Unknown [id number] 2.16.8 40.1.980104.3.579.2.462 Unknown [id number] 2.16.8 40.1.668472.3.579.2.462 Unknown [id number] 2.16.8 40.1.785903.3.579.2.462 Unknown [id number] 2.16.8 40.1.265049.3.579.2.462 Unknown [id number] 2.16.8 40.1.831196.3.579.2.462 Unknown [id number] 2.16.8 40.1.101784.3.579.2.462 Unknown [id number] 2.16.8 40.1.424450.3.579.2.462 Unknown [id number] 2.16.8 40.1.062599.3.579.2.462 Unknown [id number] 2.16.8 40.1.486904.3.579.2.462 Unknown [id number] 2.16.8 40.1.532231.3.579.2.462 Unknown [id number] 2.16.8 40.1.766529.3.579.2.462 Unknown [id number] 2.16.8 40.1.872354.3.579.2.462 Unknown [id number] 2.16.8 40.1.573375.3.579.2.462 Unknown [id number] 2.16.8 40.1.859944.3.579.2.462 Unknown [id number] 2.16.8 40.1.532503.3.579.2.462 Unknown [id number] 2.16.8 40.1.033924.3.579.2.462 Unknown [id number] 2.16.8 40.1.107119.3.579.2.462 Unknown [id number] 2.16.8 40.1.562014.3.579.2.462 Unknown [id number] 2.16.8 40.1.838915.3.579.2.462 Unknown [id number] 2.16.8 40.1.012061.3.579.2.462 Unknown [id number] 2.16.8 40.1.881954.3.579.2.462 Unknown [id number] 2.16.8 40.1.513817.3.579.2.462 Unknown [id number] 2.16.8 40.1.057268.3.579.2.462 Unknown [id number] 2.16.8 40.1.264700.3.579.2.462 Unknown [id number] 2.16.8 40.1.148179.3.579.2.462 Unknown [id number] 2.16.8 40.1.110762.3.579.2.462 Unknown [id number] 2.16.8 40.1.963779.3.579.2.462 Unknown [id number] 2.16.8 40.1.992424.3.579.2.462 Unknown [id number] 2.16.8 40.1.375891.3.579.2.462 Unknown [id number] 2.16.8 40.1.155754.3.579.2.462 Unknown [id number] 2.16.8 40.1.948515.3.579.2.462 Unknown [id number] 2.16.8 40.1.578333.3.579.2.462 Unknown [id number] 2.16.8 40.1.204392.3.579.2.462 Unknown [id number] 2.16.8 40.1.736316.3.579.2.462 Social History Date Type Detail Facility Start: 12-18-2019 End: 04-14-2023 Tobacco smoking status NHIS Unknown if ever smoked [facility] Start: 02-12-2019 None [facility] Start: 03-06-2019 Spouse/ Signif icant Other [facility] Start: 02-12-2019 Cigarettes [facility] Start: 1955 Sex Assigned At Female [facility] Start: 11-03-2011 End: 11-08-2024 Tobacco smoking status NHIS Ex-smoker [facility] Work Phone: Start: 07-05-1973 End: 07-26-2022 History of tobacco use Current smoker [facility] Work Phone: Start: 07-05-1973 End: 07-26-2022 History of tobacco use Cigarette Smoker [facility] Work Phone: Start: 11-03-2011 End: 09-04-2022 Cigarettes smoked current (pack per day) - Reported 0.5 [facility] Start: 11-03-2011 End: 08-11-2024 Tobacco use and exposure Smokeless tobacco non-user [facility] Work Phone: Start: 12-02-2018 End: 08-11-2024 Alcohol intake Current non-drinker of alcohol (finding) [facility] Start: 1955 Sex Assigned At Not on file [facility] Start: 11-12-2017 End: 09-04-2022 Gender identity Not on file [facility] Adult Depression Screening Assessment 4 [facility] Start: 10-03-2022 Tobacco smoking status NHIS Never smoked tobacco [facility] Within the last year , have you been afraid of your partner or ex-partner? No [facility] How often to you hav e a drink containing alcohol? Never [facility] Start: 09-23-2022 End: 10-03-2022 Exposure to SARS-CoV-2 (event) Not sure [facility] Start: 04-20-2024 End: 05-17-2024 Sex Female (finding) [facility] NEGATED: Highlighted row [facility] NEGATED: Highlighted row [facility] Medical Equipment Procedure Code Equipment Code Equipment Origin al Text Equipment Identifier Dates ORIF, hip, using Gamma nail ([id number]) [id number] FDA Start: 08-06-2022 ORIF, hip, using Gamma nail ([id number]) ()[id number] FDA Start: 08-06-2022 ORIF, hip, using Gamma nail ([id number]) ()[id number] FDA Start: 08-06-2022 Cement Kyphx Hv- R 30% Barium Sulfate Pmma Bone Powder Mix Body Dispense - [id number]_[facility] Start: 04-16-2018 [id number] Start: 10-10-2022 [id number] Start: 10-10-2022 [id number] Start: 10-10-2022 [id number] Start: 10-10-2022 [id number] Start: 10-10-2022 [id number] Start: 10-10-2022 ()[id number], [id number]_imp FDA Start: 12-27-2022 ()[id number], [id number]_imp FDA Start: 12-27-2022 [id number] Start: 12-23-2022 50mm Od Redapt Modular Shell [id number] Start: 10-10-2022 Oxinium Dh Dual Mobility Liner [id number] Start: 10-10-2022 Stem Distal [place] s Spl 13w113ic - [id number] Start: 10-10-2022 Body Prox Josh C Std 60mm - [id number] Start: 10-10-2022 Redapt 25mm Locking Screw [id number] Start: 10-10-2022 Redapt 20mm Locking Screw [id number] Start: 10-10-2022 Screw Acet 6.5x25mm Sphere - [id number] Start: 10-10-2022 Screw Acet 6.5x40mm Sphere - [id number] Start: 10-10-2022 Kit Scr 90mm 4.5 mm Intertan - [id number] ()[id number], [id number]_imp FDA Start: 12-27-2022 Screw Bn 5mm 37.5mm Trgn Fem - [id number] ()[id number], [id number]_imp FDA Start: 12-27-2022 Goals Date Patient Goal Desired Activity /State Functional Status Date Assessment Result Facility 11-14-2024 Functional status Ambulates [facility] Work Phone: 11-12-2024 Functional status With Assist of 1 [facility] Work Phone: 11-11-2024 Functional status Chair [facility] Work Phone: 11-11-2024 Functional status Rolling Walker [facility] Work Phone: 09-05-2024 Functional status Ambulates;Bath room Privilege [facility] Work Phone: 09-04-2024 Functional status Well [facility] Work Phone: 05-17-2024 Functional status Ambulates [facility] Work Phone: 04-24-2024 Functional status Chair [facility] Work Phone: 02-17-2024 Functional status Chair [facility] Work Phone: 01-05-2024 Functional status Bedrest [facility] Work Phone: 04-18-2023 Functional status Ambulates;Bath room Privilege [facility] Work Phone: 09-18-2022 Functional status Dependent/Unable [facility] Work Phone: 08-16-2022 Functional status Ambulates;Chair [facility] Work Phone: Mental Status Date Assessment Result Facility 11-14-2024 Cognitive function Voice/Name [facility] Work Phone: 11-12-2024 Cognitive function Awake [facility] Work Phone: 11-11-2024 Cognitive function Voice/Name [facility] Work Phone: 09-05-2024 Cognitive function Voice/Name [facility] Work Phone: 09-01-2024 Cognitive function Touch/Shaking [facility] Work Phone: 05-17-2024 Cognitive function Voice/Name [facility] Work Phone: 04-24-2024 Cognitive function Voice/Name [facility] Work Phone: 04-20-2024 Cognitive function Voice/Name [facility] Work Phone: 02-17-2024 Cognitive function Voice/Name [facility] Work Phone: 01-05-2024 Cognitive function Voice/Name [facility] Work Phone: 01-05-2024 Cognitive function Appropriate;Cooperativ e [facility] Work Phone: 04-18-2023 Cognitive function Voice/Name [facility] Work Phone: 09-18-2022 Cognitive function Voice/Name [facility] Work Phone: 08-16-2022 Cognitive function Voice/Name [facility] Work Phone: 08-14-2022 Cognitive function Level Of Cons ciousness Awake;Alert;Appropriate;Follo ws Commands [facility] Work Phone: Clinical Notes 07-27-2008 to 11-14-2024 Note Date & Type Note Facility 11-14-2024 Note [facility] 11-14-2024 Hospital Discharg e instructions Additional Instructions Date of Discharge: 11/14/24 [facility] Work Phone: 11-14-2024 Progress note Note Date/Time November 14, 2024 7:58am [facility] Medical Records Department [address] [place] [address] Progress Note - Hospitalist 11/14/24 0715 MR#: [id number] Acct: [id number] Name: DONNA MARSH Rep #:[id number] : 1955 69 From: Anuja Murcia MD PCP: ORESTES Cano Status:ADM IN Location: [place] [address] Reason for Visit Chief Complaint: Abdominal Pain and AMS. Subjective Subjective Patient seen had a relatively uneventful night. Awaiting insurance precertification prior to transfer to group home facility Objective Data Objective Data Vital Signs: Vital Signs Temp Pulse Resp BP Pulse Ox O2 Del Method 97.7 F L 72 16 141/71 H 95 Room Air 11/14/24 04:20 11/14/24 04:20 11/14/24 04:20 11/14/24 04:20 11/14/24 04:20 11/14/24 04:20 Oxygen Delivery Method Room Air Weight: 65.7 kg Body Mass Index (BMI) 24.7 Intake & Output: Intake and Output for Last 24 Hours 11/12/24 11/13/24 11/14/24 23:59 23:59 23:59 Intake Total 2141.25 / 2261.25 2812.5 / 2932.5 120 / 120 Output Total 1100 / 1100 1500 / 1700 475 / 475 Balance 1041.25 / 1161.25 1312.5 / 1232.5 -355 / -355 Lab / Micro Data 11/14/24 05:21 11/14/24 05:21 Labs: Laboratory Results - last 24 hr 11/13/24 06:39: POC Glucose 119 H 11/13/24 11:11: POC Glucose 163 H 11/13/24 16:24: POC Glucose 209 H 11/13/24 21:06: POC Glucose 183 H 11/14/24 05:21: WBC 8.6, RBC 3.61 L, Hgb 10.4 L, Hct 32.6 L, MCV 90.3, MCH 28.8,MCHC 31.9 L, RDW Std Deviation 45.0 H, RDW Coeff of Gerhard 13.5, Plt Count 253, MPV9.8, Immature Gran % (Auto) 0.300, Neut % (Auto) 54.1, Lymph % (Auto) 36.5, Alcorn% (Auto) 5.8, Eos % (Auto) 3.1, Baso % (Auto) 0.2, Absolute Neuts (auto) 4.6, Absolute Lymphs (auto) 3.13, Nucleated RBC % 0, Sodium 143, Potassium 3.6, Chloride 112 H, Carbon Dioxide 21.3, Anion Gap 10, BUN 15, Creatinine 0.78, EstimCreat Clear Calc 60.18, Est GFR (MDRD) Non-Af 81, BUN/Creatinine Ratio 18.8, Glucose 158 H, Calcium 8.8 11/14/24 06:21: POC Glucose 153 H Micro: Microbiology 11/08/24 03:15 Mucosa - Nasopharyngeal Respiratory Panel (PCR) - Final Physical Exam Narrative GENERAL: cooperative HEENT: Left periorbital bruise normocephalic EYES; Anicteric, Normal Conjunctiva NECK; supple, normal thyroid, RESPIRATORY: Diminished to auscultation CARDIOVASCULAR: Regular S1 S2, GI: soft, normoactive bowel sounds, : No Renal angle tenderness; EXTREMITIES: No edema, no clubbing, MUSCULOSKELETAL: no muscle wasting NEURO: Awake; no lateralizing signs. SKIN: Bruising on the left flank PSYCH; Flat affect Assessment & Plan Assessment/Plan (1) DKA (diabetic ketoacidoses): QUALIFIERS: Diabetes mellitus complication detail: without coma Diabetes mellitus type: type 2 Qualified Code(s): E11.10 - Type 2 diabetes mellitus with ketoacidosis without coma (2) Hypertensive urgency: (3) Acute metabolic encephalopathy: PLAN: Plan Patient is a 69-year-old lady admitted with altered mental status with nausea and vomiting and multiple falls diagnosis of diabetic ketoacidosis made admittedto the intensive care unit subsequently managed and stabilized and transferred to [facility] 1. Diabetic ketoacidosis in the setting of diabetes mellitus type 2 ? Managed per protocol with IV fluids and insulin and correction of electrolyte abnormalities. DKA resolved patient transferred to [facility]. Currently on long-acting insulin with Accu-Cheks AC and at bedtime with sliding scale coverage. Patient oral 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 agents on hold ? 11/14/2024; patient blood glucose control remains labile currently on Accu-Cheks AC and at bedtime with sliding scale coverage 2. Acute metabolic encephalopathy ? Secondary to DKA ? 11/13/2024; patient underwent MRI the day prior findings included 1. No evidence of acute intracranial pathology. 2. Mild cerebral atrophy.3. Chronic lacunar infarction in the right frontal lobe. ? 11/14/2024; patient back to baseline 3. Acute hypertensive urgency ? Patient blood pressure has since stabilized following admission ? 11/13/2024; subsequent adjustment made to patient antihypertensive regimen ? 11/14/2024; patient blood pressure control improving 4. Physical deconditioning secondary to debility following the fall ? Requested for PT OT eval and medical social worker to assist with discharge planning 5. Acute kidney injury ? Creatinine on admission was 1.05. Patient kidney function has improved to 0.66 6. Dyslipidemia ?Patient is on statin therapy, continued at home dose 7. History of peptic ulcer disease ?EGD performed on 01/04/2024 showed ulcers in the esophagus, duodenum, and gastric areas. Patient is on PPI 8. History of Takotsubo cardiomyopathy ? Remains stable 9. History of renal artery stenosis ? Remains stable 10. Paroxysmal atrial fibrillation ? Rate controlled on carvedilol and systemic anticoagulation with apixaban 11. Depression with anxiety ? Patient is on BuSpar as well as fluoxetine continue 12. Obstructive sleep apnea ? Consistent use of PAP therapy encouraged 13. Dementia ? With behavioral agitation. Stated by patient DKA. Patient is on donepezil continued 14. DVT prophylaxis ? Patient is on apixaban Time spent in the patient's overall evaluation,decision-making process, review of diagnostic data, adjustment of management, discussion with other providers, nursing nursing and ancillary staff involved in patient's care documentation, 35 minutes Charges/Coding Visit Charges Inpatient E&M: 32858 Subs Hosp L2 11/14/24 0758 <Electronically signed by Anuja Murcia MD> Cosigner Signature (if applicable): CC: ~ Signed [facility] Work Phone: 1(209) 416-843510-02-2025 Progress note Author Anuja Murcia [facility] Note Date/Time November 13, 2024 9: 44am [facility] Medical Records Department [address] [place] [address] Progress Note - Hospitalist 11/13/24 0939 MR#: [id number] Acct: [id number] Name: DONNA MARSH Rep #:[id number] : 1955 69 From: Anuja Murcia MD PCP: Rudy Boyer TRAUMA COORDINATOR-C Status:ADM IN Location: MS3 [id number] Reason for Visit Chief Complaint: Abdominal Pain and AMS. Subjective Subjective Patient seen underwent MRI the day prior no acute CVA found. Results of the findings discussed with patient's family Objective Data Objective Data Vital Signs: Vital Signs Temp Pulse Resp BP Pulse Ox O2 Del Method 98 F 74 16 163/64 H 96 Room Air 11/13/24 08:49 11/13/24 08:49 11/13/24 08:49 11/13/24 08:49 11/13/24 08:49 11/13/24 08:49 Oxygen Delivery Method Room Air Weight: 66.5 kg Body Mass Index (BMI) 25.0 Intake & Output: Intake and Output for Last 24 Hours 11/11/24 11/12/24 11/13/24 23:59 23:59 23:59 Intake Total 1994 2141.25 / 2261.25 1112.5 / 1112.5 Output Total 2150 / 2150 1100 / 1100 550 / 550 Balance -155 / -155 1041.25 / 1161.25 562.5 / 562.5 Lab / Micro Data 11/13/24 06:19 11/13/24 06:19 Labs: Laboratory Results - last 24 hr 11/12/24 11:58: POC Glucose 167 H 11/12/24 16:08: POC Glucose 150 H 11/12/24 21:52: POC Glucose 144 H 11/13/24 06:19: WBC 7.4, RBC 4.16 L, Hgb 12.1, Hct 37.2, MCV 89.4, MCH 29.1, MCHC 32.5, RDW Std Deviation 44.8 H, RDW Coeff of Gerhard 13.6, Plt Count 258, MPV 9.4, Immature Gran % (Auto) 0.300, Neut % (Auto) 48.6, Lymph % (Auto) 41.4 H, Alcorn % (Auto) 5.7, Eos % (Auto) 3.6, Baso % (Auto) 0.4, Absolute Neuts (auto) 3.6, Absolute Lymphs (auto) 3.07, Nucleated RBC % 0, Sodium 143, Potassium 3.4, Chloride 111 H, Carbon Dioxide 22.7, Anion Gap 10, BUN 12, Creatinine 0.73, Estim Creat Clear Calc 60.50, Est GFR (MDRD) Non-Af 88, BUN/Creatinine Ratio 16.0, Glucose 127 H, Calcium 8.7, Phosphorus 3.0, Magnesium 1.9 Micro: Microbiology 11/08/24 03:15 Mucosa - Nasopharyngeal Respiratory Panel (PCR) - Final Radiography Diagnostic Testing: Radiology Impression Brain MRI 11/12/24 05:55 IMPRESSION: 1. No evidence of acute intracranial pathology. 2. Mild cerebral atrophy. 3. Chronic lacunar infarction in the right frontal lobe. Reading Location: [place] [address] Physical Exam Narrative GENERAL: cooperative HEENT: Left periorbital bruise normocephalic EYES; Anicteric, Normal Conjunctiva NECK; supple, normal thyroid, RESPIRATORY: Diminished to auscultation CARDIOVASCULAR: Regular S1 S2, GI: soft, normoactive bowel sounds, : No Renal angle tenderness; EXTREMITIES: No edema, no clubbing, MUSCULOSKELETAL: no muscle wasting NEURO: Awake; no lateralizing signs. SKIN: Bruising on the left flank PSYCH; Flat affect Assessment & Plan Assessment/Plan (1) DKA (diabetic ketoacidoses): QUALIFIERS: Diabetes mellitus complication detail: without coma Diabetes mellitus type: type 2 Qualified Code(s): E11.10 - Type 2 diabetes mellitus with ketoacidosis without coma (2) Hypertensive urgency: (3) Acute metabolic encephalopathy: PLAN: Plan Patient is a 69-year-old lady admitted with altered mental status with nausea and vomiting and multiple falls diagnosis of diabetic ketoacidosis made admittedto the intensive care unit subsequently managed and stabilized and transferred to [facility] 1. Diabetic ketoacidosis in the setting of diabetes mellitus type 2 ? Managed per protocol with IV fluids and insulin and correction of electrolyte abnormalities. DKA resolved patient transferred to [facility]. Currently on long- acting insulin with Accu-Cheks AC and at bedtime with sliding scale coverage. Patient oral 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 agents on hold 2. Acute metabolic encephalopathy ? Secondary to DKA ? 11/13/2024; patient underwent MRI the day prior findings included 1. No evidence of acute intracranial pathology. 2. Mild cerebral atrophy.3. Chronic lacunar infarction in the right frontal lobe. 3. Acute hypertensive urgency ? Patient blood pressure has since stabilized following admission ? 11/13/2024; subsequent adjustment made to patient antihypertensive regimen 4. Physical deconditioning secondary to debility following the fall ? Requested for PT OT eval and medical social worker to assist with discharge planning 5. Acute kidney injury ? Creatinine on admission was 1.05. Patient kidney function has improved to 0.66 6. Dyslipidemia ?Patient is on statin therapy, continued at home dose 7. History of peptic ulcer disease ?EGD performed on 01/04/2024 showed ulcers in the esophagus, duodenum, and gastric areas. Patient is on PPI 8. History of Takotsubo cardiomyopathy ? Remains stable 9. History of renal artery stenosis ? Remains stable 10. Paroxysmal atrial fibrillation ? Rate controlled on carvedilol and systemic anticoagulation with apixaban 11. Depression with anxiety ? Patient is on BuSpar as well as fluoxetine continue 12. Obstructive sleep apnea ? Consistent use of PAP therapy encouraged 13. Dementia ? With behavioral agitation. Stated by patient DKA. Patient is on donepezil continued 14. DVT prophylaxis ? Patient is on apixaban Time spent in the patient's overall evaluation,decision-making process, review of diagnostic data, adjustment of management, discussion with other providers, nursing nursing and ancillary staff involved in patient's care documentation, 35 minutes Charges/Coding Visit Charges Inpatient E&M: 90525 Subs Hosp L2 11/13/24 0944 <Electronically signed by Anuja Murcia MD> Cosigner Signature (if applicable): CC: ~ Signed [facility] Work Phone: 1(309) 346-763110-01-2025 Progress note Author Anuja Murcia [facility] Note Date/Time November 12, 2024 7: 59am [facility] Medical Records Department [address] [place] [address] Progress Note - Hospitalist 11/12/2444 MR#: [id number] Acct: [id number] Name: DONNA MARSH Rep #:[id number] : 1955 69 From: Anuja Murcia MD PCP: Rudy Boyer TRAUMA COORDINATOR-C Status:ADM IN Location: MS3 [id number] Reason for Visit Chief Complaint: Abdominal Pain and AMS. Subjective Subjective Patient is a 69-year-old lady admitted with altered mental status diagnosis of diabetic ketoacidosis made admitted to the intensive care unit subsequently managed and stabilized and transferred to [facility] Objective Data Objective Data Vital Signs: Vital Signs Temp Pulse Resp BP Pulse Ox O2 Del Method 98 F 91 18 158/84 H 98 Room Air 11/12/24 04:07 11/12/24 04:07 11/12/24 04:07 11/12/24 04:07 11/12/24 04:07 11/12/24 04:08 Oxygen Delivery Method Room Air Weight: 63.2 kg Body Mass Index (BMI) 23.8 Intake & Output: Intake and Output for Last 24 Hours 11/10/24 11/11/24 11/12/24 23:59 23:59 23:59 Intake Total 1158.75 / 1158.75 1994 1155 / 1155 Output Total 925 / 925 2150 / 2150 800 / 800 Balance 233.75 / 233.75 -155 / -155 355 / 355 Lab / Micro Data 11/12/24 05:19 11/12/24 05:19 Labs: Laboratory Results - last 24 hr 11/11/24 11:40: POC Glucose 186 H 11/11/24 16:22: POC Glucose 179 H 11/11/24 21:01: POC Glucose 157 H 11/11/24 21:15: Urine Color Yellow, Urine Clarity Clear, Urine pH 8.0, Ur Specific Bude 1.010, Urine Protein 30 H, Urine Glucose (UA) Normal, Urine Ketones Negative, Urine Occult Blood 150 H, Urine Nitrite Negative, Urine Bilirubin Negative, Urine Urobilinogen Normal, Ur Leukocyte Esterase Negative, Urine RBC 10-25 SEEN, Urine WBC 10-25 SEEN, Ur Squamous Epith Cells 0 SEEN, Urine Bacteria RARE, Urine Mucus 0 SEEN 11/12/24 05:19: WBC 10.0, RBC 4.13 L, Hgb 11.7 L, Hct 36.4 L, MCV 88.1, MCH 28.3, MCHC 32.1, RDW Std Deviation 43.5, RDW Coeff of Gerhard 13.4, Plt Count 282, MPV 9.5, Immature Gran % (Auto) 0.300, Neut % (Auto) 61.4, Lymph % (Auto) 29.8, Alcorn % (Auto) 5.2, Eos % (Auto) 3.0, Baso % (Auto) 0.3, Absolute Neuts (auto) 6.2, Absolute Lymphs (auto) 2.99, Nucleated RBC % 0, Sodium 142, Potassium 3.3, Chloride 110 H, Carbon Dioxide 21.1, Anion Gap 11, BUN 10, Creatinine 0.66 L, Estim Creat Clear Calc 55.70, Est GFR (MDRD) Non-Af 94, BUN/Creatinine Ratio 14.6, Glucose 146 H, Calcium 8.6 11/12/24 06:46: POC Glucose 134 H Micro: Microbiology 11/08/24 03:15 Mucosa - Nasopharyngeal Respiratory Panel (PCR) - Final Physical Exam Narrative GENERAL: cooperative HEENT: Left periorbital bruise normocephalic EYES; Anicteric, Normal Conjunctiva NECK; supple, normal thyroid, RESPIRATORY: Diminished to auscultation CARDIOVASCULAR: Regular S1 S2, GI: soft, normoactive bowel sounds, : No Renal angle tenderness; EXTREMITIES: No edema, no clubbing, MUSCULOSKELETAL: no muscle wasting NEURO: Awake; no lateralizing signs. SKIN: Bruising on the left flank PSYCH; Flat affect Assessment & Plan Assessment/Plan (1) DKA (diabetic ketoacidoses): QUALIFIERS: Diabetes mellitus complication detail: without coma Diabetes mellitus type: type 2 Qualified Code(s): E11.10 - Type 2 diabetes mellitus with ketoacidosis without coma (2) Hypertensive urgency: (3) Acute metabolic encephalopathy: PLAN: Plan Patient is a 69-year-old lady admitted with altered mental status with nausea and vomiting and multiple falls diagnosis of diabetic ketoacidosis made admittedto the intensive care unit subsequently managed and stabilized and transferred to [facility] 1. Diabetic ketoacidosis in the setting of diabetes mellitus type 2 ? Managed per protocol with IV fluids and insulin and correction of electrolyte abnormalities. DKA resolved patient transferred to [facility]. Currently on long- acting insulin with Accu-Cheks AC and at bedtime with sliding scale coverage. Patient oral 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 agents on hold 2. Acute metabolic encephalopathy ? Secondary to DKA 3. Acute hypertensive urgency ? Patient blood pressure has since stabilized following admission 4. Physical deconditioning secondary to debility following the fall ? Requested for PT OT eval and medical social worker to assist with discharge planning 5. Acute kidney injury ? Creatinine on admission was 1.05. Patient kidney function has improved to 0.66 6. Dyslipidemia ?Patient is on statin therapy, continued at home dose 7. History of peptic ulcer disease ?EGD performed on 01/04/2024 showed ulcers in the esophagus, duodenum, and gastric areas. Patient is on PPI 8. History of Takotsubo cardiomyopathy ? Remains stable 9. History of renal artery stenosis ? Remains stable 10. Paroxysmal atrial fibrillation ? Rate controlled on carvedilol and systemic anticoagulation with apixaban 11. Depression with anxiety ? Patient is on BuSpar as well as fluoxetine continue 12. Obstructive sleep apnea ? Consistent use of PAP therapy encouraged 13. Dementia ? With behavioral agitation. Stated by patient DKA. Patient is on donepezil continued 14. DVT prophylaxis ? Patient is on apixaban Time spent in the patient's overall evaluation,decision-making process, review of diagnostic data, adjustment of management, discussion with other providers, nursing nursing and ancillary staff involved in patient's care documentation, 38minutes Charges/Coding Visit Charges Inpatient E&M: 90642 Subs Hosp L2 11/12/24 0759 <Electronically signed by Anuja Murcia MD> Cosigner Signature (if applicable): CC: ~ Signed [facility] Work Phone: 1(780) 626-681709-30-2025 Progress note Author Dereck Youssef [facility] Note Date/Time November 11, 2024 7:59am [facility] Medical Records Department [address] [place] [address] Progress Note - Hospitalist 11/11/24 0757 MR#: [id number] Acct: [id number] Name: DONNA MARSH Rep #:[id number] : 1955 69 From: Dereck valdovinos MD PCP: ORESTES Cano Status:ADM IN Location: [place] [address]-1 Subjective Subjective Doing well, no issues overnight. Objective Data Objective Data Vital Signs: Vital Signs Temp Pulse Resp BP Pulse Ox O2 Del Method 98.6 F 80 15 144/77 H 96 Room Air 11/11/24 03:18 11/11/24 03:18 11/11/24 03:18 11/11/24 03:18 11/11/24 03:18 11/11/24 04:14 Oxygen Delivery Method Room Air Weight: 138 lb 14.259 oz Body Mass Index (BMI) 23.7 Intake & Output: Intake and Output for Last 24 Hours 11/10/24 11/11/24 11/12/24 03:59 03:59 03:59 Intake Total 1348.75 / 1348.75 2153.75 / 2153.75 Output Total 725 / 725 950 / 950 Balance 623.75 / 623.75 1203.75 / 1203.75 Lab / Micro Data 11/11/24 05:16 11/11/24 05:16 Labs: Laboratory Results - last 24 hr 11/10/24 11:11: POC Glucose 137 H 11/10/24 15:35: POC Glucose 168 H 11/10/24 22:06: POC Glucose 145 H 11/11/24 05:16: WBC 9.5, RBC 4.01 L, Hgb 11.3 L, Hct 35.9 L, MCV 89.5, MCH 28.2,MCHC 31.5 L D, RDW Std Deviation 45.2 H, RDW Coeff of Gerhard 13.7, Plt Count 288, MPV 9.6, Immature Gran % (Auto) 0.400, Neut % (Auto) 55.0, Lymph % (Auto) 35.1, Alcorn % (Auto) 6.3, Eos % (Auto) 3.0, Baso % (Auto) 0.2, Absolute Neuts (auto) 5.2, Absolute Lymphs (auto) 3.35, Nucleated RBC % 0, Sodium 142, Potassium 3.4, Chloride 109 H, Carbon Dioxide 22.4, Anion Gap 10, BUN 15, Creatinine 0.66 L, Estim Creat Clear Calc 55.70, Est GFR (MDRD) Non-Af 94, BUN/Creatinine Ratio 23.1 H, Glucose 131 H, Calcium 8.6 11/11/24 06:33: POC Glucose 141 H Micro: Microbiology 11/08/24 03:15 Mucosa - Nasopharyngeal Respiratory Panel (PCR) - Final Physical Exam Narrative General: Alert, oriented x 2, Cooperative, No apparent distress HEENT: Atraumatic, PERRLA, EOMI, Normocephalic, ecchymosis over her left eye Oral: Moist Mucosa Neck: Supple, No JVD Lungs: Diminished, Normal air movement, No rhonchi, No wheeze, No rales Cardiovascular: Regular rate, Regular Rhythm, Normal S1, Normal S2, No murmurs Abdomen: Soft, Non Tender, Non-Distended, No Hepato-splenomegaly Extremities: No edema, Capillary Refill Less than 3 Seconds Skin: No rashes, No breakdown Musculoskeletal: No Tenderness to Palpation of Joints or Extremities Neurological: No focal neurological deficits, moves all extremities Psych/Mental Status: Normal Affect, Appropriate disoriented Assessment & Plan Assessment/Plan (1) DKA (diabetic ketoacidoses): QUALIFIERS: Diabetes mellitus type: type 2 Diabetes mellitus complication detail: without coma Qualified Code(s): E11.10 - Type 2 diabetes mellitus with ketoacidosis without coma (2) Hypertensive urgency: (3) Acute metabolic encephalopathy: PLAN: Plan 1. DKA in the setting of type 2 diabetes with diabetic neuropathy ? Her gap's are closed x 2 ? Transition to subcu insulin and can transfer out of the ICU ? Will attempt to restart gabapentin during her hospitalization ? PT/OT for evaluation and possible placement 2. Hypertensive urgency/HLD/paroxysmal A-fib ? Continue with statin ? Continue with Eliquis ? Will monitor make adjustments as necessary ? Can resume her home medications 3. Acute metabolic encephalopathy in the setting of dementia ? Her altered mental status is likely related to her DKA and that she does have chronic dementia ? There was a concern for possible stroke, NIH of 1 for aphasia ? Uncertain that continued workup for stroke is warranted 4. Bipolar ? Continue with her home meds ? Stable 5. GERD ? Stable ? Continue with PPI DVT: Eliquis Charges/Coding Visit Charges Inpatient E&M: 51861 Subs Hosp L2 11/11/24 5545 <Electronically signed by Dereck Youssef MD> Cosigner Signature (if applicable): CC: ~ Signed [facility] Work Phone: 1(253) 714-445009-29-2025 Progress note Author Dereck Youssef [facility] Note Date/Time November 10, 2024 10:09am [facility] Medical Records Department [address] [place] [address] Progress Note - Hospitalist 11/10/24 1004 MR#: [id number] Acct: [id number] Name: DONNA MARSH Rep #:[id number] : 1955 69 From: Dereck valdovinos MD PCP: ORESTES Cano Status:ADM IN Location: [place] [address]-1 Subjective Subjective Remains unchanged from yesterday Objective Data Objective Data Vital Signs: Vital Signs Temp Pulse Resp BP Pulse Ox O2 Del Method 97.6 F L 88 16 146/83 H 98 Room Air 11/10/24 09:09 11/10/24 09:09 11/10/24 09:09 11/10/24 09:09 11/10/24 09:09 11/10/24 09:09 Oxygen Delivery Method Room Air Weight: 138 lb 14.259 oz Body Mass Index (BMI) 23.7 Intake & Output: Intake and Output for Last 24 Hours 11/09/24 11/10/24 11/11/24 03:59 03:59 03:59 Intake Total 2187.83 / 2187.83 1348.75 / 1348.75 20 / 20 Output Total 1475 / 1475 725 / 725 200 / 200 Balance 712.83 / 712.83 623.75 / 623.75 -180 / -180 Lab / Micro Data 11/10/24 05:49 11/10/24 05:49 Labs: Laboratory Results - last 24 hr 11/08/24 09:50: POC Glucose 153 H 11/09/24 09:30: POC Glucose 161 H 11/09/24 11:26: POC Glucose 169 H 11/09/24 17:20: POC Glucose 119 H 11/09/24 22:27: POC Glucose 158 H 11/10/24 05:49: WBC 11.7 H, RBC 4.01 L, Hgb 11.7 L, Hct 35.0 L, MCV 87.3, MCH 29.2, MCHC 33.4, RDW Std Deviation 45.6 H, RDW Coeff of Gerhard 14.0, Plt Count 292,MPV 9.2, Immature Gran % (Auto) 0.300, Neut % (Auto) 62.6, Lymph % (Auto) 29.0, Alcorn % (Auto) 6.1, Eos % (Auto) 1.8, Baso % (Auto) 0.2, Absolute Neuts (auto) 7.3, Absolute Lymphs (auto) 3.40, Nucleated RBC % 0, Sodium 142, Potassium 3.7, Chloride 110 H, Carbon Dioxide 20.3 L, Anion Gap 11, BUN 27 H, Creatinine 0.82, Estim Creat Clear Calc 54.34, Est GFR (MDRD) Non-Af 77, BUN/Creatinine Ratio 32.6 H, Glucose 135 H, Calcium 8.9 11/10/24 06:56: POC Glucose 132 H Micro: Microbiology 11/08/24 03:15 Mucosa - Nasopharyngeal Respiratory Panel (PCR) - Final Physical Exam Narrative General: Alert, disoriented, Cooperative, No apparent distress HEENT: Atraumatic, PERRLA, EOMI, Normocephalic, ecchymosis over her left eye Oral: Moist Mucosa Neck: Supple, No JVD Lungs: Diminished, Normal air movement, No rhonchi, No wheeze, No rales Cardiovascular: Regular rate, Regular Rhythm, Normal S1, Normal S2, No murmurs Abdomen: Soft, Non Tender, Non-Distended, No Hepato-splenomegaly Extremities: No edema, Capillary Refill Less than 3 Seconds Skin: No rashes, No breakdown Musculoskeletal: No Tenderness to Palpation of Joints or Extremities Neurological: No focal neurological deficits, Motor Exam 5/5 strength throughout, Sensory exam intact to light touch and pain Psych/Mental Status: Normal Affect, Appropriate disoriented Assessment & Plan Assessment/Plan (1) DKA (diabetic ketoacidoses): QUALIFIERS: Diabetes mellitus type: type 2 Diabetes mellitus complication detail: without coma Qualified Code(s): E11.10 - Type 2 diabetes mellitus with ketoacidosis without coma (2) Hypertensive urgency: (3) Acute metabolic encephalopathy: PLAN: Plan 1. DKA in the setting of type 2 diabetes with diabetic neuropathy ? Her gap's are closed x 2 ? Transition to subcu insulin and can transfer out of the ICU ? Will attempt to restart gabapentin during her hospitalization ? PT/OT for evaluation and possible placement 2. Hypertensive urgency/HLD/paroxysmal A-fib ? Continue with statin ? Continue with Eliquis ? Will monitor make adjustments as necessary ? Can resume her home medications 3. Acute metabolic encephalopathy in the setting of dementia ? Her altered mental status is likely related to her DKA and that she does have chronic dementia ? There was a concern for possible stroke, NIH of 1 for aphasia ? Uncertain that continued workup for stroke is warranted 4. Bipolar ? Continue with her home meds ? Stable 5. GERD ? Stable ? Continue with PPI DVT: Eliquis Charges/Coding Visit Charges Inpatient E&M: 78923 Subs Hosp L2 11/10/24 1009 <Electronically signed by Dereck Youssef MD> Cosigner Signature (if applicable): CC: ~ Signed [facility] Work Phone: 1(612) 208-699909-29-2025 Progress note Author Dereck Youssef [facility] Note Date/Time November 10, 2024 10:03am [facility] Medical Records Department [address] [place] [address] Progress Note - Hospitalist 11/09/2447 MR#: [id number] Acct: [id number] Name: DONNA MARSH Rep #:[id number] : 1955 69 From: Dereck valdovinos MD PCP: ORESTES Cano Status:ADM IN Location: [place] [address]-1 Subjective Subjective Doing well, no issues overnight. Still confused Objective Data Objective Data Vital Signs: Vital Signs Temp Pulse Resp BP Pulse Ox O2 Del Method 99 F 119 H 21 H 126/80 H 93 Room Air 11/09/24 05:00 11/09/24 07:00 11/09/24 07:00 11/09/24 07:00 11/09/24 07:00 11/09/24 07:00 Oxygen Delivery Method Room Air Weight: 146 lb 11.2 oz Body Mass Index (BMI) 25.0 Intake & Output: Intake and Output for Last 24 Hours 11/08/24 11/09/24 11/10/24 03:59 03:59 03:59 Intake Total 1102.2 / 1104.81 2187.83 / 2187.83 Output Total 1475 / 1475 200 / 200 Balance 1102.2 / 1104.81 712.83 / 712.83 -200 / -200 Lab / Micro Data 11/10/24 05:49 11/10/24 05:49 Labs: Laboratory Results - last 24 hr 11/08/24 09:50: Sodium 142, Potassium 2.9 L, Chloride 107, Carbon Dioxide 21.7, Anion Gap 14, BUN 16, Creatinine 1.05, Estim Creat Clear Calc 42.44 L, Est GFR (MDRD) Non-Af 57 L, BUN/Creatinine Ratio 14.9, Glucose 179 H, Calcium 9.4, Phosphorus 3.2, Magnesium 1.9 11/08/24 10:52: POC Glucose 87 11/08/24 12:04: POC Glucose 67 L 11/08/24 13:08: POC Glucose 115 H 11/08/24 13:52: POC Glucose 248 H 11/08/24 13:55: Sodium 141, Potassium 3.2 L, Chloride 105, Carbon Dioxide 21.0, Anion Gap 15, Phosphorus 4.0, Magnesium 2.1 11/08/24 16:03: POC Glucose 140 H 11/08/24 21:38: POC Glucose 170 H 11/09/24 03:15: WBC 15.4 H, RBC 4.40, Hgb 12.6, Hct 39.0, MCV 88.6, MCH 28.6, MCHC 32.3, RDW Std Deviation 45.3 H, RDW Coeff of Gerhard 14.0, Plt Count 358, MPV 9.0, Immature Gran % (Auto) 0.500, Neut % (Auto) 73.4 H, Lymph % (Auto) 17.9 L, Alcorn % (Auto) 7.3, Eos % (Auto) 0.8, Baso % (Auto) 0.1, Absolute Neuts (auto) 11.3 H, Absolute Lymphs (auto) 2.76, Nucleated RBC % 0, Sodium 140, Potassium 3.8, Chloride 106, Carbon Dioxide 20.6 L, Anion Gap 14, BUN 27 H, Creatinine 1.18, Estim Creat Clear Calc 37.76 L, Est GFR (MDRD) Non-Af 49 L, BUN/CreatinineRatio 23.2 H, Glucose 182 H, Calcium 9.2 Micro: Microbiology 11/08/24 03:15 Mucosa - Nasopharyngeal Respiratory Panel (PCR) - Final Physical Exam Narrative General: Alert, disoriented, Cooperative, No apparent distress HEENT: Atraumatic, PERRLA, EOMI, Normocephalic, ecchymosis over her left eye Oral: Moist Mucosa Neck: Supple, No JVD Lungs: Diminished, Normal air movement, No rhonchi, No wheeze, No rales Cardiovascular: Regular rate, Regular Rhythm, Normal S1, Normal S2, No murmurs Abdomen: Soft, Non Tender, Non-Distended, No Hepato-splenomegaly Extremities: No edema, Capillary Refill Less than 3 Seconds Skin: No rashes, No breakdown Musculoskeletal: No Tenderness to Palpation of Joints or Extremities Neurological: No focal neurological deficits, Motor Exam 5/5 strength throughout, Sensory exam intact to light touch and pain Psych/Mental Status: Normal Affect, Appropriate disoriented Assessment & Plan Assessment/Plan (1) DKA (diabetic ketoacidoses): QUALIFIERS: Diabetes mellitus complication detail: without coma Diabetes mellitus type: type 2 Qualified Code(s): E11.10 - Type 2 diabetes mellitus with ketoacidosis without coma (2) Hypertensive urgency: (3) Acute metabolic encephalopathy: PLAN: Plan 1. DKA in the setting of type 2 diabetes with diabetic neuropathy ? Her gap's are closed x 2 ? Transition to subcu insulin and can transfer out of the ICU ? Will attempt to restart gabapentin during her hospitalization 2. Hypertensive urgency/HLD/paroxysmal A-fib ? Continue with statin ? Continue with Eliquis ? Will monitor make adjustments as necessary ? Can resume her home medications 3. Acute metabolic encephalopathy in the setting of dementia ? Her altered mental status is likely related to her DKA and that she does have chronic dementia ? There was a concern for possible stroke, NIH of 1 for aphasia ? Uncertain that continued workup for stroke is warranted 4. Bipolar ? Continue with her home meds ? Stable 5. GERD ? Stable ? Continue with PPI DVT: Eliquis Charges/Coding Visit Charges Inpatient E&M: 16531 Subs Hosp L2 11/10/24 1003 <Electronically signed by Dereck Youssef MD> Cosigner Signature (if applicable): CC: ~ Signed [facility] Work Phone: [phone]) 955-942109-27-2025 History and physical note Author Anuja Brown [facility] Note Date/Time November 08, 2024 7:42am [facility] Medical Records Department [address] [place] [address] H&P Exam - Hospitalist 11/08/24 0115 MR#: [id number] Acct: [id number] Name: DONNA MARSH Rep #:[id number] : 1955 69 From: Anuja Camarillo DO PCP: ORESTES Cano Status:ADM IN Location: ICU [id number] 4-1 HPI - General General Date of Admission: 11/08/24 Date of Service: 11/08/24 Chief Complaint: Abdominal Pain and AMS. HPI Narrative DONNA MARSH, is a 69 F with a past medical history of essential hypertension; onamlodipine and carvedilol twice daily, hyperlipidemia; on atorvastatin, former tobacco abuse, CAD; s/p non-STEMI (2017), paroxysmal atrial fibrillation; on apixaban, history of Takotsubo cardiomyopathy, history of renal artery stenosis,history of psoriatic arthritis, DM-2; of unknown control on glipizide plus sliding scale insulin TID AC, diabetic neuropathy; on gabapentin 3 times daily, BURKE; on CPAP, bipolar disorder; on fluoxetine BID, buspirone plus as needed hydroxyzine 3 times daily as needed, chronic dementia; on donepezil, OAB; on mirabegron, oxybutynin and tolterodine, seasonal allergies; on fexofenadine, RLS, history of muscle spasms; on tizanidine 3 times daily as needed, GERD; withhiatal hernia and history of PUD (12/2023), and OA; with history of Left hip fracture, history of back surgery and recurrent falls with recent fall with intractable back pain on May 17, 2024 causing patient to be admitted here; on tramadol every 6 hours with most recent admission here from September 01, 2024 to September 05, 2024 for treatment of acute cystitis with fever, severe leukocytosis of23.7 K and lactic acidosis of 2.2 mmol/L consistent with suspected sepsis with septic encephalopathy and newly diagnosed L3 compression fracture at that time who now re-presents to [facility] ER complaining of abdominal pain and altered mental status. Mrs. Marsh is not a fully reliable historian at this time as information gathered from chart, medical staff and computer. According to the records the patient has had abdominal pain, nausea and vomiting for 2 days. The patient's reported to the ER staff that she fell 2 days ago but patient cannot elaborate on any details surrounding the fall. She also is not aware if she is taking her insulin or not. Her apparently thought she had a UTI so we sent her in for further evaluation and treatment. In the ER she was noted to have Hyperglycemia of 283 mg deciliter with a corresponding elevated beta hydroxybutyric acid of 3.1 mmol/L with an anion gap of 26 present on admission consistent with DKA complicated by clinical evidence of Acute Metabolic Encephalopathy compounded by elevated blood pressure of 183/97 mmHg present on admission consistent with suspected Hypertensive Urgency and she was then admitted to the ICU for ongoing care for stated is expected to extend beyond 2 midnights. [facility] Medical History (Updated 11/08/24 @ 02:[address] Anuja Noel, ) Chronic anticoagulation Paroxysmal atrial fibrillation Erythrocytosis Transaminitis Hypercalcemia Frequent falls Acute cystitis without hematuria Septic encephalopathy Closed L3 vertebral fracture Acute UTI DURAN (acute kidney injury) Sepsis High anion gap metabolic acidosis Acute kidney injury Candidal intertrigo Acute UTI Recurrent falls Acute delirium Altered level of consciousness Acute encephalopathy Myocardial infarction type 2 Non-ST elevation IL (NSTEMI) Hiatal hernia Irritable bowel Back pain [...] (vitamin D2) 1,250 1,250 mcg PO SA raghav min 04/20/24 05/10/24 History mcg (50,000 unit) capsule (Vitamin D2) fexofenadine 180 mg tablet 180 mg PO DAILY allergies 0 04/20/24 Unknown History glipizide 10 mg tablet 10 mg PO DAILY diabetes 11/06 Unknown History atorvastatin 20 mg tablet 20 mg PO QHS cholesterol #0 tabs 04/24/24 05/12/24 Rx carvedilol 3.125 mg tablet 3.125 mg PO BIDCM blood pre ssure 04/24/24 05/13/24 Rx #0 tabs fluoxetine 40 mg capsule 40 mg PO BID #0 caps 5 Unknown Rx gabapentin 100 mg capsule 100 mg PO TID nerve pain #0 caps 04/24/24 Unknown Rx pantoprazole 40 mg tablet,delayed 40 mg PO BID reflux #0 tabs 04/24/24 Unknown Rx release tolterodine 4 mg capsule,extended 4 mg PO DAILY #0 cap s 04/24/24 Unknown Rx release 24 hr acetaminophen 325 mg tablet 650 mg PO Q4H PRN Fever, p ain 05/13/24 05/12/24 History 1-11/21 buspirone 15 mg tablet 15 mg PO BID mental health 0 05/13/24 Unknown History donepezil 10 mg tablet 10 mg PO DAILY memory Unknown History mirabegron 50 mg tablet,extended 50 mg PO DAILY bladde r 05/13/24 Unknown History release 24 hr Remove Patch 2 patch topical DAILY@2200 # #0 05/16/24 Unknown Rx aluminum-mag hydroxide-simethicone 30 ml PO Q6H PRN WV N Gastric 05/16/24 Unknown Rx 400 mg-400 mg-40 mg/5 mL oral susp Burning #0 mL (Mag-Al Plus Extra Strength) amlodipine 10 mg tablet 10 mg PO DAILY #60 tabs 06/06 Unknown Rx hydroxyzine pamoate 25 mg capsule 25 mg PO TID PRN PRN severe 05/16/24 Unknown Rx anxiety #0 caps insulin lispro 100 unit/mL See Protocol subcut ACHS #0 mL 05/16/24 Unknown Rx subcutaneous pen (Humalog KwikPen (U-100) Insulin) lidocaine 5 % topical patch 2 patch topical DAILY #0 e a 05/16/24 Unknown Rx melatonin 3 mg tablet 3 mg PO QHS PRN PRN Insomnia #0 05/16/24 Unknown Rx tabs potassium chloride 20 mEq 20 meq PO BIDCM #0 tabs 06/06 Unknown Rx tablet,extended release(part/cryst) sennosides 8.6 mg-docusate sodium 2 tab PO BID PRN PRN Constipation 05/16/24 Unknown Rx 50 mg tablet (Stimulant Laxative #0 tabs Plus) tizanidine 2 mg tablet 2 mg PO Q8H PRN PRN muscle 0 05/16/24 Unknown Rx spasms/strain #0 tabs nitrofurantoin 1 cap PO Q12.TCU 05/19/24 Un known History monohydrate/macrocrystals 100 mg capsule oxybutynin chloride 15 mg PO 05/19/24 Unknown History tablet,extended release 24 hr tramadol 50 mg tablet 50 mg PO Q6H PRN pain 3 days #12 05/19/24 Unknown Rx tabs sulfamethoxazole 800 1 tab PO BID #2 tabs 09/05/ 5 Unknown Rx mg-trimethoprim 160 mg tablet (Bactrim DS) Allergy/AdvReac Type Severity Reaction Status Date / Time morphine Allergy Severe Other Verified 11/07/24 22:07 codeine Allergy Itching Verified 11/07/24 22:07 fentanyl AdvReac confusion Verified 11/07/24 22:07 naproxen AdvReac Other Verified 11/07/24 22:07 Family History Mother Cancer skin Father Cancer [...] Number of servings: 1 ROS ROS Narrative Full review of systems was not possible due to patient's confusion. Vital Signs Vital Signs Vital Signs: 11/07/24 22:09 11/07/24 22:12 11/07/24 22:54 Temperature 98.5 F 98.5 F Temperature Source Oral Oral Pulse Rate 122 H 124 H Respiratory Rate 20 H 20 H Respiratory Effort Short of Breath Labored Respiratory Pattern Tachypnea Blood Pressure 183/97 H 183/97 H Blood Pressure Mean 125 125 Pulse Ox 100 100 Oxygen Delivery Method Room Air Room Air 11/07/24 23:00 11/08/24 00:00 Temperature 98.5 F 98.5 F Temperature Source Oral Oral Pulse Rate 102 H 96 Respiratory Rate 20 H 18 Respiratory Effort Respiratory Pattern Blood Pressure 180/89 H 179/79 H Blood Pressure Mean 119 112 Pulse Ox 100 93 Oxygen Delivery Method Room Air Room Air Physical Exam Const alert Constitutional Narrative: Mild distress noted with patient markedly confused and chronically ill in appearance. General Appearance: cooperative Orientation / Consciousness: confused HEENT normocephalic, head/scalp atraumatic and hearing grossly normal bilaterally HEENT Narrative: Left periorbital ecchymoses with mucous membranes dry. Eyes PERRL, EOMs intact bilaterally and conjunctivae normal Neck no lymphadenopathy, supple and no JVD Resp normal respiratory effort, no retractions, no use of accessory muscles and clearto auscultation bilaterally Cardio regular rate and regular rhythm GI GI Narrative: Patient has mild tenderness to palpation of the epigastric region without distention, guarding or rebound. Extremity normal to inspection, full ROM and no clubbing, cyanosis or edema Skin Skin Narrative: Patient is evidence of rash, abscess, wounds or jaundice. Neuro CN's II-XII intact bilaterally and moves all extremities Neuro Narrative: Patient is confused and could only partially answer questions at this time. Sensorium / Orientation: awake, alert, oriented to person and oriented to place Speech: speech normal Psych affect normal Results Medical Records Data Attestation: I reviewed the patient's medical records Lab / Micro Data Attestation: I reviewed the patient's lab results. 11/07/24 22:40 11/07/24 22:40 Labs: Laboratory Results - last 24 hr 11/07/24 22:35: Urine Color Straw, Urine Clarity Clear, Urine pH 6.0, Ur Specific Bude 1.015, Urine Protein 100 H, Urine Glucose (UA) 250 H, Urine Ketones 50 H, Urine Occult Blood 25 H, Urine Nitrite Negative, Urine Bilirubin Negative, Urine Urobilinogen Normal, Ur Leukocyte Esterase Negative, Urine RBC 0-5 SEEN, Urine WBC 0-5 SEEN, Ur Squamous Epith Cells 0-5 SEEN, Urine Bacteria 0SEEN, Urine Mucus 0 SEEN 11/07/24 22:40: WBC 10.7, RBC 5.81 H, Hgb 16.5 H, Hct 50.4 H, MCV 86.7, MCH 28.4, MCHC 32.7, RDW Std Deviation 42.1, RDW Coeff of Gerhard 13.2, Plt Count 400, MPV 9.7, Immature Gran % (Auto) 0.400, Neut % (Auto) 90.1 H, Lymph % (Auto) 7.3 L, Alcorn % (Auto) 1.9, Eos % (Auto) 0.1, Baso % (Auto) 0.2, Absolute Neuts (auto)9.6 H, Absolute Lymphs (auto) 0.78 L, Nucleated RBC % 0, Sodium 139, Potassium 4.3, Chloride 98, Carbon Dioxide 14.7 L, Anion Gap 26 H, BUN 13, Creatinine 0.87, Est GFR (MDRD) Non-Af 71, BUN/Creatinine Ratio 15.4, Glucose 283 H, LacticAcid Cancelled, Calcium 10.0, Total Bilirubin 1.20, AST 34 H, ALT 14, Alkaline Phosphatase 126 H, Ammonia 20.7, Troponin T High Sens 13 D, Total Protein 8.0, Albumin 4.8, Globulin 3.2, Albumin/Globulin Ratio 1.5, Lipase 14, b-Hydroxybutyric mmol/L 3.1 H 11/07/24 23:39: Lactic Acid 1.2 Imaging [facility] Imaging Services [address] [place] [id number] Brain/Head without Contrast MR#: [id number] Acct: [id number] Name: DONNA MARSH Rep #: [id number] : 1955 F 69 From: Carri Bettencourt MD PCP: ORESTES Cano Status: REG ER Study: Brain/Head without Contrast Date of Exam: 11/08/24 Exam# [id number] Ordering Dr: Corinne Villalobos MD PROCEDURE: BRAIN/HEAD WITHOUT CONTRAST 11/08/2024 REASON FOR EXAM: FALL TECHNIQUE: Procedure Code: CTBR Modality: CT Procedure: BRAIN/HEAD WITHOUT CONTRAST Coronal and Sagittal reconstruction series were provided. One or more dose reduction techniques were used (e.g., Automated exposure control, adjustment of the mA and/or kV according to patient size, use of iterative reconstruction technique. RADIATION DOSE SUMMARY: CTDlvol: 65 mGy DLP: 1778 mGycm FINDINGS: Accentuated bilateral cerebral periventricular deep white matter hypodensities suggesting hypoperfusion. Garcia-white matter differentiation is maintained. Bilateral basal ganglia fine calcifications (physiological). Normal CT appearance of the posterior fossa structures. No intracerebral or extra axial hemorrhage. No definite calvarial fractures. Prominent ventricular system, cortical sulci and extra-axial CSF spaces No midline shifts or deformity. The osseous structures in the skull base are unremarkable. Small calcific densities related to the calvarial bones inner table. The scanned paranasal sinuses are unremarkable. Vascular atheromatous calcifications. CT/Brain/Head without Contrast IMPRESSION: No intracerebral or extra axial hemorrhage. No acute cerebrovascular insult. If clinical symptoms persist, further evaluation with MRI may be considered as clinically warranted. Bilateral cerebral microvascular ischemic changes with brain involutional changes. stable. Reading Location: [place] [address] CC: ORESTES Boyer; Dr. Corinne Villalobos MD ~ Inspector [employer] Products: Signed ----- [facility] Imaging Services [address] [place] [address] Spine Cervical without Contras MR#: [id number] Acct: [id number] Name: DONNA MARSH Rep #: [id number] : 1955 F 69 From: Carri Bettencourt MD PCP: ORESTES Cano Status: REG ER Study: Spine Cervical without Contras Date of Exam: 11/08/24 Exam# [id number] Ordering Dr: Corinne Villalobos MD PROCEDURE: SPINE CERVICAL WITHOUT CONTRAS 11/08/2024 REASON FOR EXAM: FALL TECHNIQUE: Procedure Code: CTSPC Modality: CT Procedure: SPINE CERVICAL WITHOUT CONTRAS Coronal and Sagittal reconstruction series were provided. One or more dose reduction techniques were used (e.g., Automated exposure control, adjustment of the mA and/or kV according to patient size, use of iterative reconstruction technique. RADIATION DOSE SUMMARY: CTDI Vol 32.56 mGy DLP :745.4 mGycm COMPARISON: 20-Apr-2024 FINDINGS: Straightened cervical curve denoting myospasm. C2 and C3 bony fusion. Stable relative reduced C3 vertebral body height showing mothed osseous texture and mild posterior cortical bulge The examined vertebral bodies show no structural collapse or posterior neural elements fractures. Intact atlanto-axial interval. Degenerative changes of the atlanto-odontoid articulation with related capsular calcifications. Cervical spondylodegenerative changes evident by marginal osteophytic lipping and multilevel subchondral sclerosis of the examined vertebral end plates with multilevel disc spaces narrowing. Multilevel degenerative unco-vertebral arthropathy with osteophytes formation seen encroaching upon the corresponding neural exit foramina. Multilevel degenerative facet arthropathy. Multilevel diffuse disc bulges with posterior osteophytes and annular calcifications indenting the theca and encroaching upon the related neural exit foramina. No paraspinal masses. Carotid atheromatous calcifications. CT/Spine Cervical without Contras IMPRESSION: Stable study findings. No newly developed acute vertebral fractures, structural collapse or dislocation. Reading Location: [id number] CC: TRAUMA COORDINATOR-Madelyn Boyer; Dr. Corinne Villalobos MD ~ Inspector [employer]: Signed ----- [facility] Imaging Services [address] [place] [address] Abdomen/Pelvis W IV Cont ONLY MR#: [id number] Acct: [id number] Name: DONNA MARSH Rep #: [id number] : 1955 F 69 From: Carri Bettencourt MD PCP: ORESTES Cano Status: REG ER Study: Abdomen/Pelvis W IV Cont ONLY Date of Exam: 11/08/24 Exam# [id number] Ordering Dr: Corinne Villalobos MD PROCEDURE: ABDOMEN/PELVIS W IV CONT ONLY 11/08/2024 REASON FOR EXAM: ABD PAIN./N/V TECHNIQUE: Procedure Code: CTABDPELIV Modality: CT Procedure: ABDOMEN/PELVIS W IV CONT ONLY Coronal and Sagittal reconstruction series were provided. CONTRAST: OMNIPAQUE 350 VOLUME: 100 mL One or more dose reduction techniques were used (e.g., Automated exposure control, adjustment of the mA and/or kV according to patient size, use of iterative reconstruction technique. RADIATION DOSE SUMMARY: CTDlvol: 16.5 mGy DLP: 630 mGycm COMPARISON: CT scan on 09/01/2024. FINDINGS: Mild bilateral basilar atelectatic pulmonary changes. Unremarkable metallic prosthesis of the hips. Chronic deformities of the pubic bones. Chronic compression deformities of the vertebral bodies, unchanged. Moderate osteopenia. Uncomplicated colonic diverticulosis. Gastroparesis/gastritis. Bilateral scattered simple renal cysts with the largest measuring 3.5 cm. Normal liver. Normal gallbladder and extrahepatic biliary system. Normal spleen. Normal pancreas. Normal bilateral adrenal glands. Normal size of the right kidney. There is no right renal mass. There are no right renal calculi. There is no right hydronephrosis. Normal visualized right ureter. Normal size of the left kidney. There is no left renal mass. There are no leftrenal calculi. There is no left hydronephrosis. Normal visualized left ureter Normal small intestine. The appendix is not visualized. There is no demonstrated peritoneal fluid. Calcified atheromatous plaques of the abdominal aorta. Normal inferior vena cava. Normal retroperitoneum. Normal urinary bladder. There is no pelvic mass lesion or lymphadenopathy. There is no pelvic fluid. CT/Abdomen/Pelvis W IV Cont ONLY IMPRESSION: Mild bilateral basilar atelectatic pulmonary changes. Unremarkable metallic prosthesis of the hips. Chronic deformities of the pubic bones. Chronic compression deformities of the vertebral bodies, unchanged. Moderate osteopenia. Uncomplicated colonic diverticulosis. Gastroparesis/gastritis. Bilateral scattered simple renal cysts with the largest measuring 3.5 cm. Reading Location: [place] [address] CC: TRAUMA COORDINATORJarad Boyer; Dr. Corinne Villalobos MD ~ Inspector [employer]: Signed Assessment & Plan Assessment/Plan (1) DKA (diabetic ketoacidoses): QUALIFIERS: Diabetes mellitus complication detail: without coma Diabetes mellitus type: type 2 Qualified Code(s): E11.10 - Type 2 diabetes mellitus with ketoacidosis without coma (2) Hypertensive urgency: (3) Acute metabolic encephalopathy: (4) Chronic dementia: (5) Paroxysmal atrial fibrillation: (6) Chronic anticoagulation: (7) Bipolar disease, chronic: PLAN: Plan 1. Hyperglycemia of 283 mg deciliter with a corresponding elevated beta hydroxybutyric acid of 3.1 mmol/L with an anion gap of 26 present on admission consistent with DKA in the setting of previously known DM-2; of unknown control on glipizide plus sliding scale insulin TID AC - Admit to ICU. Continue IV insulin drip begun in ER. Give vigorous volume resuscitation and recheck BMP q.4 hours as per DKA protocol. Keep strict NPO. 2. Hypertensive Urgency with elevated blood pressure of 183/97 mmHg complicating # 1 - Give hydralazine IV prn for systolic blood pressure of > 160 mmHg. 3. Acute Metabolic Encephalopathy likely due primarily to #1 in the setting of known Chronic Dementia - Check TSH, B12, Folate, MICHELLE and UDS. 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 Restart donepezil when able. 4. Recent admission here from September 01, 2024 to September 05, 2024 for treatment of acute cystitis with fever, severe leukocytosis of 23.7 K and lactic acidosis of 2.2 mmol/L consistent with suspected sepsis with septic encephalopathy and newlydiagnosed L3 compression fracture at that time with Frequent Falls - Noted with patient's likely struggling to take care of her at home with patient also not getting her insulin and blood pressure medications as prescribed resulting in #1 - #3. 5. Paroxysmal atrial fibrillation; on apixaban adding to the medical complexityof #1 - #4 - Hold apixaban while NPO and replace with full-dose enoxaparin. 6. Bipolar disorder; on fluoxetine BID, buspirone plus as needed hydroxyzine 3 times daily as needed - Hold home regimen for now. 7. Hyperlipidemia; on atorvastatin - Restart statin when patient resumes oral intake. 8. Former tobacco abuse - Noted. 9. CAD; s/p non-STEMI (2017) - Noted. 10. History of Takotsubo cardiomyopathy - Noted. 11. History of renal artery stenosis - Noted. 12. History of psoriatic arthritis - Stable with no evidence of acute flare. 13. Diabetic neuropathy; on gabapentin 3 times daily - Restart gabapentin when patient can tolerate oral intake. 14. BURKE; on CPAP - Nocturnal CPAP ordered. 15. OAB; on mirabegron, oxybutynin and tolterodine - Restart when able. 16. Seasonal allergies; on fexofenadine - Hold this for now. 17. RLS - Stable. 18. History of muscle spasms; on tizanidine 3 times daily as needed - Restart when able. 19. GERD; with hiatal hernia and history of PUD (12/2023) - Continue PPI IV. 20. OA; with history of Left hip fracture, history of back surgery and recurrent falls with recent fall with intractable back pain on May 17, 2024 causing patient to be admitted here; on tramadol every 6 hours - Hold all oral medications and minimize opiates as much as possible in an effort to allow sensorium to clear. 21. DVT prophylaxis - Patient on full-dose enoxaparin as outlined in #5. Total time: Approximately (but not less than) 75 minutes. Update: Patient has a stroke alert called last night due to worsening confusion with patient evaluated by [facility] telneurology who though her symptoms were metabolic in origin and likely related to withdrawal from pain medications and rebound hypertension. Also her follow-up head CT without contrast revealed bilateral cerebral microvascular ischemic changes with brain involutional changes that are stable. She was then treated with buprenorphine sublingual in addition to labetalol 10 mg IV once with POSTAL INSPECTOR updated with plan. Charges/Coding Visit Charges Inpatient E&M: 24622 Init Hosp L3 11/08/24 0742 <Electronically signed by Anuja Noel DO> Cosigner Signature (if applicable): CC: TRAUMA COORDINATOR-C Rudy Boyer; Dr. Anuja Noel DO~ Signed [facility] Work Phone: [phone]) 536-166709-27-2025 Radiology Diagnostic study [facility]09-27-2025 Discharge summary Author Corinne Villalobos [facility] Note Date/Time November 08, 2024 1:54am [facility] [facility] [address] [place] [address] Emergency Department Summary 11/08/24 MR#: [id number] Acct: [id number] Name: DONNA MARSH Rep #:[id number] : 1955 69 From: Corinne Villalobos MD PCP: ORESTES Cano Status:REG ER Location: ED HPI History of Present Illness Chief Complaint: Nausea/Vomiting Narrative Narrative: Patient is a 69-year-old female presenting to the emergency department for abdominal pain, nausea and vomiting for 2 days. Patient is a very poor historian. She has a past medical history of diabetes, hypertension, NSTEMI, encephalopathy, opioid dependence, pancreatitis, UTI, CKD. Patient reports that2 days ago she had a fall. She is unable to tell me specifics about why she fell. She is on chronic anticoagulation with Eliquis. [facility] Medical History Chronic anticoagulation Paroxysmal atrial fibrillation Erythrocytosis Transaminitis Hypercalcemia Frequent falls Acute cystitis without hematuria Septic encephalopathy Closed L3 vertebral fracture Acute UTI DURAN (acute kidney injury) Sepsis High anion gap metabolic acidosis Acute kidney injury Candidal intertrigo Acute UTI Recurrent falls Acute delirium Altered level of consciousness Acute encephalopathy Myocardial infarction type 2 Non-ST elevation IL (NSTEMI) Hiatal hernia Irritable bowel Back pain [...] (vitamin D2) 1,250 1,250 mcg PO SA raghav min 04/20/24 05/10/24 History mcg (50,000 unit) capsule (Vitamin D2) fexofenadine 180 mg tablet 180 mg PO DAILY allergies 0 04/20/24 Unknown History glipizide 10 mg tablet 10 mg PO DAILY diabetes 11/06 Unknown History atorvastatin 20 mg tablet 20 mg PO QHS cholesterol #0 tabs 04/24/24 05/12/24 Rx carvedilol 3.125 mg tablet 3.125 mg PO BIDCM blood pre ssure 04/24/24 05/13/24 Rx #0 tabs fluoxetine 40 mg capsule 40 mg PO BID #0 caps 5 Unknown Rx gabapentin 100 mg capsule 100 mg PO TID nerve pain #0 caps 04/24/24 Unknown Rx pantoprazole 40 mg tablet,delayed 40 mg PO BID reflux #0 tabs 04/24/24 Unknown Rx release tolterodine 4 mg capsule,extended 4 mg PO DAILY #0 cap s 04/24/24 Unknown Rx release 24 hr acetaminophen 325 mg tablet 650 mg PO Q4H PRN Fever, p ain 05/13/24 05/12/24 History 1-11/21 buspirone 15 mg tablet 15 mg PO BID mental health 0 05/13/24 Unknown History donepezil 10 mg tablet 10 mg PO DAILY memory Unknown History mirabegron 50 mg tablet,extended 50 mg PO DAILY bladde r 05/13/24 Unknown History release 24 hr Remove Patch 2 patch topical DAILY@2200 # #0 05/16/24 Unknown Rx aluminum-mag hydroxide-simethicone 30 ml PO Q6H PRN WV N Gastric 05/16/24 Unknown Rx 400 mg-400 mg-40 mg/5 mL oral susp Burning #0 mL (Mag-Al Plus Extra Strength) amlodipine 10 mg tablet 10 mg PO DAILY #60 tabs 06/06 Unknown Rx hydroxyzine pamoate 25 mg capsule 25 mg PO TID PRN PRN severe 05/16/24 Unknown Rx anxiety #0 caps insulin lispro 100 unit/mL See Protocol subcut ACHS #0 mL 05/16/24 Unknown Rx subcutaneous pen (Humalog KwikPen (U-100) Insulin) lidocaine 5 % topical patch 2 patch topical DAILY #0 e a 05/16/24 Unknown Rx melatonin 3 mg tablet 3 mg PO QHS PRN PRN Insomnia #0 05/16/24 Unknown Rx tabs potassium chloride 20 mEq 20 meq PO BIDCM #0 tabs 06/06 Unknown Rx tablet,extended release(part/cryst) sennosides 8.6 mg-docusate sodium 2 tab PO BID PRN PRN Constipation 05/16/24 Unknown Rx 50 mg tablet (Stimulant Laxative #0 tabs Plus) tizanidine 2 mg tablet 2 mg PO Q8H PRN PRN muscle 0 05/16/24 Unknown Rx spasms/strain #0 tabs nitrofurantoin 1 cap PO Q12.TCU 05/19/24 Un known History monohydrate/macrocrystals 100 mg capsule oxybutynin chloride 15 mg PO 05/19/24 Unknown History tablet,extended release 24 hr tramadol 50 mg tablet 50 mg PO Q6H PRN pain 3 days #12 05/19/24 Unknown Rx tabs sulfamethoxazole 800 1 tab PO BID #2 tabs 09/05/ 5 Unknown Rx mg-trimethoprim 160 mg tablet (Bactrim DS) Allergy/AdvReac Type Severity Reaction Status Date / Time morphine Allergy Severe Other Verified 11/07/24 22:07 codeine Allergy Itching Verified 11/07/24 22:07 fentanyl AdvReac confusion Verified 11/07/24 22:07 naproxen AdvReac Other Verified 11/07/24 22:07 Family History Mother Cancer skin Father Cancer [...] servings: 1 ROS ROS ED ROS Narrative See HPI EXAM Physical Exam Narrative Exam Narrative: Vital signs: Reviewed General: Alert and oriented x 3. No acute distress. Chronically ill-appearing HEENT: Head is normocephalic and atraumatic. No lacerations, abrasions or cephalhematoma to the head or face. There is left-sided periorbital ecchymosis. Appears to be subacute. No significant periorbital swelling. No conjunctival hemorrhage or conjunctival injection. Extraocular movements intact. Sinuses nontender, pupils equal round and reactive. Nares are patent. No septal hematoma. Oropharynx and throat exams normal. No oropharyngeal trauma. Neck: Supple without lymphadenopathy nontender. No midline cervical spinal tenderness to palpation. No step-offs or deformities. Cardiovascular: Regular rate and rhythm, no murmurs. No rubs or gallops. Normal S1 and S2 Respiratory: Clear to auscultation bilaterally. No wheezes, rales, rhonchi Chest: Chest wall is atraumatic and nontender to palpation. No ecchymosis, erythema or crepitus of the chest wall. Abdominal: Soft and tenderness palpation in the epigastric region. Otherwise abdomen is nontender to palpation. normal bowel sounds. No guarding or rebound. Nonsurgical abdomen Extremities: No tenderness. No bruising. Normal range of motion. Normal sensation. Skin: No rash or redness. Neurological: Cranial nerves II through XII are grossly intact. Normal strengthand sensation. Normal cerebellar function The rest of the physical exam is unremarkable Const Vital Signs: 11/07/24 22:09 11/07/24 22:12 11/07/24 22:54 Temperature 98.5 F 98.5 F Temperature Source Oral Oral Pulse Rate 122 H 124 H Respiratory Rate 20 H 20 H Respiratory Effort Short of Breath Labored Respiratory Pattern Tachypnea Blood Pressure 183/97 H 183/97 H Blood Pressure Mean 125 125 Pulse Ox 100 100 Oxygen Delivery Method Room Air Room Air 11/07/24 23:00 11/08/24 00:00 11/08/24 01:00 Temperature 98.5 F 98.5 F 98.9 F Temperature Source Oral Oral Oral Pulse Rate 102 H 96 115 H Respiratory Rate 20 H 18 20 H Respiratory Effort Respiratory Pattern Blood Pressure 180/89 H 179/79 H 171/97 H Blood Pressure Mean 119 112 121 Pulse Ox 100 93 100 Oxygen Delivery Method Room Air Room Air Room Air MDM MDM MDM Narrative Medical decision making narrative: Patient is a 69-year-old female presenting to the emergency department for abdominal pain, nausea and vomiting for the past 2 days. Patient was seen and examined. Vitals are stable. She is tachycardic on initial evaluation in the 120s to 130s. Mildly hypertensive at 183/97. Mildly tachypneic at 20. She is afebrile saturating 100% on room air. Differential includes but is not limited to: Pancreatitis, cholecystitis, colitis, UTI, gastroenteritis, DKA, sepsis Patient given fluids and Zofran for symptomatic control. CBC with no leukocytosis and hemoglobin is 16.5. CMP with bicarb of 14.7 and anion gap of 26, glucose of 283. DKA protocol started. Ketones and VBG added on. Lipase within normal limits. Ammonia within normal limits. EKG shows sinus tachycardia with left axis deviation. No dysrhythmia. There appears to be some ST depression in V4 through V6. No ST elevation. Initial troponin of 13. Urinalysis with glucose and ketones consistent with her DKA. No evidence of UTI. CT brain with no acute findings. CT cervical spine with no acute findings. CT abdomen pelvis with some mild bilateral bibasilar atelectatic pulmonary changes. Uncomplicated colonic diverticulosis, gastroparesis/gastritis. No acute findings. Clinical impression: DKA Nausea vomiting Abdominal pain History & Record Review Discussion w/independent historian: Patient Additional record(s) reviewed:: Prior labs Lab Data Attestation: I reviewed the patient's lab results. Labs: Laboratory Results - last 24 hr 11/07/24 11/07/24 11/07/24 22:35 22:40 23:39 WBC 10.7 RBC 5.81 H Hgb 16.5 H Hct 50.4 H MCV 86.7 MCH 28.4 MCHC 32.7 RDW Std Deviation 42.1 RDW Coeff of Gerhard 13.2 Plt Count 400 MPV 9.7 Immature Gran % (Auto) 0.400 Neut % (Auto) 90.1 H Lymph % (Auto) 7.3 L Alcorn % (Auto) 1.9 Eos % (Auto) 0.1 Baso % (Auto) 0.2 Absolute Neuts (auto) 9.6 H Absolute Lymphs (auto) 0.78 L Nucleated RBC % 0 Sodium 139 Potassium 4.3 Chloride 98 Carbon Dioxide 14.7 L Anion Gap 26 H BUN 13 Creatinine 0.87 Est GFR (MDRD) Non-Af 71 BUN/Creatinine Ratio 15.4 Glucose 283 H Lactic Acid Cancelled 1.2 Calcium 10.0 Magnesium 2.2 Total Bilirubin 1.20 AST 34 H ALT 14 Alkaline Phosphatase 126 H Ammonia 20.7 Troponin T High Sens 13 D Total Protein 8.0 Albumin 4.8 Globulin 3.2 Albumin/Globulin Ratio 1.5 Lipase 14 b-Hydroxybutyric mmol/L 3.1 H Urine Color Straw Urine Clarity Clear Urine pH 6.0 Ur Specific Bude 1.015 Urine Protein 100 H Urine Glucose (UA) 250 H Urine Ketones 50 H Urine Occult Blood 25 H Urine Nitrite Negative Urine Bilirubin Negative Urine Urobilinogen Normal Ur Leukocyte Esterase Negative Urine RBC 0-5 SEEN Urine WBC 0-5 SEEN Ur Squamous Epith Cells 0-5 SEEN Urine Bacteria 0 SEEN Urine Mucus 0 SEEN ABG Data ABG results: ABG 11/08/24 01:33 Specimen Type RADHA Sample Site Not entered VBG pH 7.65 H* VBG pO2 61 H VBG HCO3 16 L VBG Total CO2 16 L VBG O2 Sat (Calc) 96 H VBG Base Excess -5 L POC Mix VBG pCO2 Pt Tmp 14.6 L* O2 Delivery Device Room Air Crit Call To/Read Back Yes Blood Gas Notified Whom Ilsa Blood Gas Notified Time 01:34:49 Radiography Diagnostic Testing: Clinical Impression(s) from Imaging Studies Abdomen/Pelvis CT 11/08/24 00:00 IMPRESSION: Mild bilateral basilar atelectatic pulmonary changes. Unremarkable metallic prosthesis of the hips. Chronic deformities of the pubic bones. Chronic compression deformities of the vertebral bodies, unchanged. Moderate osteopenia. Uncomplicated colonic diverticulosis. Gastroparesis/gastritis. Bilateral scattered simple renal cysts with the largest measuring 3.5 cm. Reading Location: [facility] Brain CT 11/08/24 00:00 IMPRESSION: No intracerebral or extra axial hemorrhage. No acute cerebrovascular insult. If clinical symptoms persist, further evaluation with MRI may be considered as clinically warranted. Bilateral cerebral microvascular ischemic changes with brain involutional changes. stable. Reading Location: [facility] Cervical Spine CT 11/08/24 00:00 IMPRESSION: Stable study findings. No newly developed acute vertebral fractures, structural collapse or dislocation. Reading Location: [facility] Discharge Plan Triage Chief Complaint: Nausea/Vomiting ED Provider: Corinne Villalobos Dx/Rx/DC Orders Prescriptions: No Action Eliquis 2.5 mg tablet 2.5 mg PO [...] mg PO Q4H PRN (Reason: Fever, pain 1-10) lidocaine 5 % Adhesive Patch,Medicated 2 patch [...] 10 mg PO DAILY Qty: 60 0RF oxybutynin chloride 15 mg tablet extended release 24hr PO nitrofurantoin monohyd/m-cryst 100 mg capsule 1 cap PO Q12.TCU tramadol 50 mg tablet 50 mg PO Q6H PRN (Reason: pain) 3 Days Qty: 12 0RF sulfamethoxazole-trimethoprim [Bactrim DS] 800-160 mg tablet 1 tab PO BID Qty: 2 0RF Primary Care Provider: Rudy Boyer Referrals: Rudy Boyer, TRAUMA COORDINATOR-C [Primary Care Provider, Family Practice] Print Language: Turkish What to do if you have Problems For any increased pain, shortness of breath, bleeding, nausea or vomiting, chestpain, or any unexpected problems, contact your Primary Care Provider. Call [facility] ([phone]) or report to the closest Emergency Room. Call 911 if necessary. 11/08/24 0154 <Electronically signed by Corinne Villalobos MD> Cosigner Signature (if applicable): CC: ORESTES Boyer ~ Signed [facility] Work Phone: 1(538) 168-164509-27-2025 Radiology Diagnostic study [facility]09-27-2025 Radiology Diagnostic study [facility]09-27-2025 Radiology Diagnostic study [facility] 11-08-2024 Radiology Diagnostic study [facility]07-25-2025 [facility]07-21-2025 Evaluation note* Diagnosis Onset Date Resolution Status Admit Date Acute encephalopathy resolved September 01, 2024 2:49am Sepsis resolved September 01 2:49am Acute cystitis without hematuria jose a ctive September 01, 2024 2:49am Acute UTI inactive September 01 2:49am Chronic anticoagulation inactive J 2024 2:49am Closed L3 vertebral fracture inactiv e September 01, 2024 2:49am Erythrocytosis inactive September 01, 2024 2:49am Frequent falls inactive September 01, 2024 2:49am Hypercalcemia inactive September 01, 2024 2:49am Paroxysmal atrial fibrillation inact an September 01, 2024 2:49am Septic encephalopathy inactive Aug 2:49am Transaminitis inactive September 01, 2024 2:49am [facility] Work Phone: 1(173) 618-797807-21-2025 Evaluation note* Diagnosis Onset Date Resolution Status Admit Date Chronic anticoagulation acute J chelsea2024 2:49am Paroxysmal atrial fibrillation acute September 01, 2024 2:49am Acute encephalopathy resolved September 01, 2024 2:49am Sepsis resolved September 01 2:49am Acute cystitis without hematuria inactive September 01, 2024 2:49am Acute UTI inactive September 01 2:49am Closed L3 vertebral fracture inactiv e September 01, 2024 2:49am Erythrocytosis inactive September 01, 2024 2:49am Frequent falls inactive September 01, 2024 2:49am Hypercalcemia inactive September 01, 2024 2:49am Septic encephalopathy inactive Aug 2:49am Transaminitis inactive September 01, 2024 2:49am Chest pain acute October 01, 2 025 2:01pm Gastroenteritis acute October 012024 2:01pm Acute metabolic encephalopathy acute November 08, 2024 1:31am Chronic anticoagulation acute S eptember 2024 1:31am DKA (diabetic ketoacidoses) acute November 08, 2024 1:31am Hypertensive urgency acute Oct emb2024 1:31am Paroxysmal atrial fibrillation acute November 08, 2024 1:31am Bipolar disease, chronic chronic November 08, 2024 1:31am Chronic dementia chronic Octembe r 2024 1:31am [facility] Work Phone: 1(501) 886-153407-21-2025 Radiology Diagnostic study note [facility] Imaging Services [address] [place] [address] [id number] Abdomen/Pelvis without Cont MR#: [id number] Acct: [id number] Name: DONNA MARSH Rep #: [id number] : 1955 F 68 From: Allison Silva MD PCP: ORESTES Cano Status: REG ER Study:Abdomen/Pelvis without Cont Date of Exa m: 09/01/24 Exam# [id number] Ordering Dr: Sarthak Arce MD PROCEDURE: ABDOMEN/PELVIS WITHOUT CONT 09/01/2024 REASON FOR EXAM: POSSIBLY GUARDING ON EXAM; ENCEPHALOPATHIC TECHNIQUE: ABDOMEN/PELVIS WITHOUT CONT Noncontrast technique limits evaluation of the abdominal and pelvic viscera. Coronal and Sagittal reconstruction series were provided. One or more dose reduction techniques were used (e.g., Automated exposure control, adjustment of the mA and/or kV according to patient size, use of iterative reconstruction technique). RADIATION DOSE SUMMARY: CTDlvol: 65 mGy DLP: 1778 mGycm COMPARISON: 05/14/2024 FINDINGS: Under aerated lung bases. Normal heart size. Unremarkable gallbladder, liver, pancreas, spleen, adrenal glands. 2 cm splenichypodensity favoringbenign etiology. Bilateral simple renal cysts. No hydronephrosis or ureteral stone. Catheter tip in decompressed bladder. Status post hysterectomy. No retroperitoneal or pelvic adenopathy. No free air. Nondistended bowel.Multiple diverticula. No acute large bowel findings. Lumbar spine degeneration. Status post ventral hernia repair. Status post leftTHR. Status post right femoral neck fracture with orthopedic repair. Old pelvic fractures. Old rib fractures. Multilevel old thoracic and lumbarspine compression deformities status post L5 kyphoplasty. Interval development of an L3 vertebralbody fracture which may be acute. CT/Abdomen/Pelvis without Cont IMPRESSION: Interval development of an L3 vertebral body fracture, correlate as to acuity. No acute abdominopelvic findings are otherwise noted. Reading Location: [facility] CC: ORESTES Boyer; Dr. Nico Arce MD ~ [employer]: Signed [facility]07-21-2025 Radiology Diagnostic study note [facility] Imaging Services [address] [place] [address] [id number] Brain/Head without Contrast MR#: [id number] Acct: [id number] Name: DONNA MARSH Rep #: [id number] : 1955 F 68 From: Allison Silva MD PCP: ORESTES Cano Status: REG ER Study:Brain/Head without Contrast Date of Exa m: 09/01/24 Exam# [id number] Ordering Dr: Sarthak Arce MD PROCEDURE: BRAIN/HEAD WITHOUT CONTRAST 09/01/2024 REASON FOR EXAM: ALTERED MENTAL STATUS TECHNIQUE: BRAIN/HEAD WITHOUT CONTRAST Coronal and Sagittal reconstruction series were provided. One or more dose reduction techniques were used (e.g., Automated exposure control, adjustment of the mA and/or kV according to patient size, use of iterative reconstruction technique. RADIATION DOSE SUMMARY: CTDlvol: 65 mGy DLP: 1778 mGycm COMPARISON: 05/13/2024 FINDINGS: Diffuse atrophy. Arterial calcifications. Mild white matter change. No acute abnormal brain densities. No intracranial hemorrhage. No hydrocephalus or midline shift. No acute scalp or skull pathology. Bilateral lens extraction. Clear sinuses. CT/Brain/Head without Contrast IMPRESSION: No acute findings [facility] CC: ORESTES Boyer; Dr. Nico Arce MD ~ [employer]: Signed [facility]07-21-2025 Radiology Diagnostic study note [facility] Imaging Services [address] [place], [place] [id number] Chest 1 View (Portable) MR#: [id number] Acct: [id number] Name: DONNA MARSH Rep #: [id number] : 1955 F 68 From: Allison Silva MD PCP: ORESTES Cano Status: REG ER Study:Chest 1 View (Portable) Date of Exam: 09/01/24 Exam# [id number] Ordering Dr: Sarthak Arce MD PROCEDURE: CHEST 1 VIEW (PORTABLE) 09/01/2024 REASON FOR EXAM: ALTERED LOC TECHNIQUE: Frontal view of the chest. COMPARISON: 05/16/2024 FINDINGS: Scoliosis. Normal heart size. Well inflated lungs. No consolidation, effusion, or pneumothorax. Bilateral old rib fractures. RAD/Chest 1 View (Portable) IMPRESSION: No acute chest findings. Reading Location: [facility] CC: ORESTES Boyer; Dr. Nico Arce MD ~ [employer]: Signed [facility]06-30-2025 Instructions* Patient Instructions* Jeromy Lai MD - 08/11/2024 10:46 AM [...] low, increasing a person's risk of fractures. Thelumbar spine (lower back) and the hip are [...] your usual activities immediately. [facility] NoteHNO ID: [id number] Author: JEROMY LAI MD Service: ? Author Type: Physician Type: Progress Notes Filed: 08/11/2024 17:40 Note Text: Endocrinology and Metabolism [place] Initial [facility] Visit Note NAME: Donna Marsh is a 68 year old old female PCP: Rudy Boyer NP Requesting Provider: Regina Oden MD [address] [facility] [address] My final recommendations will be communicated back [...] hip in 2023 Height loss: lost from 5'8.5" to 5'3" Kidney stones: no Weight change: lost weight due to not eating at the rehab, reports she has been eating better since being back home on last History of corticosteroid use: short duration for respiratory issues History of malabsorption: no known history History of certain medication use: eliquis for few (5-6) years for "Broken heart syndrome" Current or recent tobacco use: 18 to 33 years, 1 pack per week Caffeine intake: Drinks tea daily; has weaned off Pepsi and now consumes Burke Perry iced tea. Alcohol use: no Use of [...] follows with DR. LINDSEY Morbid obesity ([facility]) since quit smoking Osteopenia [...] Take by mouth on (more content not included)...[facility]06-30-2025 History of Present illness Narrative* Jeromy Lai MD - 08/11/2024 10:12 AM EDT Endocrinology and Metabolism [place] [facility] Visit Note NAME: Donna Marsh is a 68 year old old female PCP: Rudy Boyer NP Requesting Provider: Regina Oden MD [address] [facility] [address] My final recommendations will be communicated back [...] she was advised by her orthopedic to stopphysical therapy. Patient has problem with balance. She reports she has been looking for back brace Fall prevention:using walker for ambulation, recently transitioned from a wheelchair. Prior fragility fractures: fractures both hips- latest was right hip in 2023 Height loss: lost from 5'8.5" to 5'3" Kidney stones: no Weight change: lost weight due to not eating at the rehab, reports she has been eating better sincebeing back home on last History of corticosteroid use: short duration for respiratory issues History of malabsorption: no known history History of certain medication use: eliquis for few (5-6) years for "Broken heart syndrome" Current or recent tobacco use: 18 to 33 years, 1 pack per week Caffeine intake: Drinks tea daily; has weaned off Pepsi and now consumes [employer] iced tea. Alcohol use: no Use of lithium or thiazides: no History of hyperparathyroidism: no Dental appointment: no recent appt, denied nay active dental issues History of estrogen use: no Menopause: had right oophorectomy and hysterectomy at age 25 due to a tumor (surgical pathology wadbeni), had left ovary intact She has no [...] follows with DR. LINDSEY Morbid obesity ([facility]) since quit smoking Osteopenia Osteoporosis Type II or unspecified type diabetes mellitus without mention of complication, not stated as uncontrolled late 40' Unspecified essential hypertension late 40's Unspecified urinary incontinence late urgency AND stress-induced [...] Once exam is complete flush line and de-accessaccording to line specific nursing protocol in the [...] tablet by mouth twice daily as needed forPain for up to 30 days. oxyCODONE-acetaminophen (PERCOCET) 5-325 mg tablet Take 1 tablet by mouth twice daily as needed forPain for up to 30 days. oxyCODONE-acetaminophen (PERCOCET) 5-325 mg tablet Take 1 tablet by mouth twice daily as needed forPain for up to 30 days. tiZANidine (ZANAFLEX) 4 mg tablet Take 1 tablet by mouth twice daily as needed. VITAMIN D 50,000 unit capsule Take 1 capsule by mouth once each week. (Patient not taking: Reportedon 06/20/2024) PROCHLORPERAZINE MALEATE (COMPAZINE ORAL) Take 1 [...] M protein is identified on protein electrophoresis. Nodefinitive M protein is identified on protein electrophoresis. Staff Review (Urine Electro) Reviewed by Yayo Babb M.D. Result ([facility]) No M protein is identified. No M protein is identified. Staff Review ([facility]) Reviewed by Yayo Babb M.D. Protein, Urine [...] the purposes of this report, anatomic variants: None.L4-5 is considered the level of the iliac [...] by Gallito Crisostomo MD on 08/13/[address]/Chest without Contrast IMPRESSION: Cardiomegaly with pulmonary [...] greater than right with underlying infiltration and/or atelectasis." DXA: Not available Appears she had a DXA scan in 2006 showing osteopenia, as per documentation. No DXA scan done at [facility] or [facility] where are PCP is located Assessment/plan: Donna [...] on alendronate 70 mg weekly. This was discontinuedwhen she was transition to rehabilitation in 2022, [...] which included preparing to see the patient, [id number] patient care, completing clinical documentation, obtaining and/or reviewing separately obtained history, performing a medically appropriate examination, counseling and educating the pat ient/family/caregiver, ordering medications, tests, or procedures, independently interpreting results (not separately reported), and communicating results to the patient/family/caregiver. Jeromy Lai MD Endocrinology Associate Staff [facility] Endocrinology and Metabolism [place] [phone] Medical Decision Making: Medical Decision Making Level: 1 - N/A documented in this encounterAvita [facility]05-[facility]-2025 NoteHNO ID: [id number] Author: REGINA ODEN, DO Service: ? Author Type: Physician Type: Progress Notes Filed: 06/20/2024 17:14 Note Text: HPI: The patient is a 68-year-old female with a past medical history significant for atrial fibrillation, bipolar disorder, dementia, depression, hypertension, previous smoker, GERD, right-sided hearing loss, hiatal hernia, high cholesterol, irritable bowel, migraine, CAD (non-ST elevation [place] 01/06/2018), psoriatic arthritis, sleep apnea, osteoporosis, Takotsubo syndrome and type 2 diabetes. Patient was admitted to [facility] on 08/05/2022 following a mechanical fall [...] in the lateral (more content not included)... [facility]05-09-2025 History of Present illness Narrative* Regina Oden DO - 06/20/2024 12:06 PM EDT HPI: The patient is a 68-year-old female with a past medical history significant for atrial fibrillation, bipolar disorder, dementia, depression, hypertension, previous smoker, GERD, right-sided hearing loss, hiatal hernia, high cholesterol, irritable bowel, migraine, CAD (non-ST elevation [place] 01/06/2018), psoriatic arthritis, sleep apnea, osteoporosis, Takotsubo syndrome and type 2 diabetes. Patient was admitted to [facility] on 08/05/2022 following a mechanical fall [...] Initial NIH was 12. CT of the headwas unremarkable. CTA head and neck showed no acute issue. MRI showed no stroke. She had increasingconfusion with narcotics. She had a chest x-ray on 08/13 that demonstrated a large left pleural effusion. CT chest was then performed which demonstrated small right pleural effusion large left pleural effusion. There were also multiple osseous lytic lesions in the thoracic and lumbar spine as well asthe ribs. Underwent left-sided thoracentesis ultrasound-guided on 08/14/2022. [...] breath since thoracentesis. She is at the [facility] in skilled care. She was told by her orthopedic surgeon not to do any furtherphysical therapy. She requires a Ava lift. She spends a very short amount of time in the chair anum daily basis. Eating part of 1 meal a day. Has not had a previous screening mammogram. Presents for ongoing hematologic management. Interim history: Previously had protein electrophoresis and immunofixation of the serum that was negative. This was done at [facility]. CT guided bone marrow biopsy of [...] all 4 IgG subclasses. IgA and IgM werenormal. Most recent chemistry panel from 05/17/2024 revealed [...] follows with DR. LINDSEY Morbid obesity ([facility]) since quit smoking Osteopenia Osteoporosis Type II or unspecified type diabetes mellitus without mention of complication, not stated as uncontrolled late Unspecified essential hypertension late 38 Unspecified urinary incontinence late urgency AND stress-induced [...] temperature source Temporal, height 157.3 cm (5' 1.91"), weight 64.9 kg (143 lb), SpO2 99%. [...] Rhythm is regular. 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 No suspicious mass or nodule bilaterally. ABDOMEN: The abdomen is nondistended. No splenomegaly or hepatomegaly. No tenderness. Extremities: No swelling or edema. SKIN: No jaundice or rash. No petechiae. NEUROLOGIC: director post II-XII are grossly intact. Resolved right-sided foot drop. MUSCULOSKELETAL: Generalized muscle wasting. LABS: Serum electrophoresis and immunofixation demonstrated no evidence of monoclonal protein by electrophoresis. Immunofixation negative. Test performed at [facility] 08/16/2022. UA x2 while at [facility] on 08/07 and 08/13 were both negative for occult blood. Mildproteinuria was observed. ASSESSMENT/PLAN: (M89.8X9) Lytic lesion of [...] osseous structures. There is severe central compression ofL2 which was noted to have progressed since 2004. Superior endplate depression at L1 and L4 were also noted. - I can find no record of bone density testing on her in either the [facility] or [facility] system. -I reviewed the bone marrow [...] see the patient (reviewing electronic record via [facility] system), [id number] patient care, completing clinical documentation, counseling and educating the patient/family/caregiver, ordering medications, tests, or proc edures, communicating with other HCPs (not separately reported), and communicating results to the patient/family/caregiver. Regina Oden DO [facility] Telephone encounter Note * Telephone Encounter - Terrie Lowery - 06/10/2024 12:31 PM EDT Spoke with [facility] and scheduled lab and est complex ov Terrie Lowery [place] [id number] Miscellaneous Notes* Telephone Encounter - Terrie Lowery - 06/10/2024 12:31 PM EDT Spoke with [facility] and scheduled lab and est complex ov Terrie Beverley * Telephone Encounter - Cristina Graham LPN - 06/10/2024 11:28 AM EDT PSS- please contact [facility] [phone] to get patient scheduled for an est complex OV with . Will also need a lab appointment for a CBC prior to OV that same day. Cristina Graham LPN * Telephone Encounter - Regina Oden DO - 06/10/2024 11:19 AM EDT Yes, establish complex please. CBC. Regina Oden DO * Telephone Encounter - Cristina Graham LPN - 06/10/2024 9:36 AM EDT Patient has not seen oncology since last here. All imaging since last here printed and placed in Dr. Oden's mailbox for review. I also placed the biopsy results from 09/18/[address] Oden's mailbox. Est complex OV? Cristina Graham LPN * Telephone Encounter - Katalina You LPN - 05/29/2024 3:43 PM EDT Called [facility] was placed on hold. Sent fax to nurses telling them we saw patient once in 2022 (then twice in 2009 prior for a different diagnosis). I asked them if there was a reason they thoughtshe needed to be seen. Will await communication back from [facility]. Katalina You LPN * Telephone Encounter - Daksha Tang - 05/29/2024 3:04 PM EDT Jeannie from [facility] called stating that patient is back with them at this time. She is asking if patient needed a follow up with Dr. Oden. Patient was here in 2022. Please call Jeannie at [phone] documented in [facility] Telephone encounter Note * Telephone Encounter - Cristina Graham LPN - 06/10/2024 11:28 AM EDT PSS- please contact [facility] [phone] to get patient scheduled for an est complex OV with . Will also need a lab appointment for a CBC prior to OV that same day. Cristina Graham LPN [facility]04-29-2025 Telephone encounter Note* Telephone Encounter - Regina Oden DO - 06/10/2024 11:19 AM EDT Yes, establish complex please. CBC. Regina Oden DO [facility]04-29-2025 Telephone encounter Note* Telephone Encounter - Cristina Graham LPN - 06/10/2024 9:36 AM EDT Patient has not seen oncology since last here. All imaging since last here printed and placed in Dr. Oden's mailbox for review. I also placed the biopsy results from 09/18/[address] Oden's mailbox. Est complex OV? Cristina Graham LPN [facility]04-17-2025 Telephone encounter Note* Telephone Encounter - Katalina You LPN - 05/29/2024 3:43 PM EDT [address] [facility] was placed on hold. Sent fax to nurses telling them we saw patient once in 2022 (then twice in 2009 prior for a different diagnosis). I asked them if there was a reason they thoughtshe needed to be seen. Will await communication back from [facility]. Katalina You LPN [facility]04-17-2025 Telephone encounter Note* Telephone Encounter - Daksha Tang - 05/29/2024 3:04 PM EDT Jeannie from [facility] called stating that patient is back with them at this time. She is asking if patient needed a follow up with Dr. Oden. Patient was here in 2022. Please call Jeannie at [phone] [facility] Work Phone: 1(140) 775-527804-05-2025 Progress note Author Anuja Murcia [facility] Note Date/Time May 17, 2024 11:0 3am [facility] Medical Records Department [address] [place] [address] Progress Note - Hospitalist 05/17/24 0752 MR#: [id number] Acct: [id number] Name: DONNA MARSH David Rep #:[id number] : 1955 68 From: Anuja Murcia MD PCP: ORESTES Cano Status:ADM IN Location: [place] [address] Reason for Visit Reason for Visit: Diagnoses [...] 14:45 IMPRESSION: NO ACUTE FINDINGS. Reading Location: [place] [address] Physical Exam Narrative GENERAL: cooperative HEENT: Atraumatic; [...] ? Requested for PT OT eval and medical social worker to assist with discharge planning 3. Acute [...] documentation, 40minutes Charges/Coding Visit Charges Inpatient E&M: 34815 Subs Hosp L2 05/17/24 1103 <Electronically signed by Anuja Murcia MD> Cosigner Signature (if applicable): CC: ~ Signed [facility] Work Phone: 1(843) 365-984104-04-2025 Progress note Author Anuja Murcia [facility] Note Date/Time May 16, 2024 2:36 pm [facility] Medical Records Department [address] [place] [address] Progress Note - Hospitalist 05/16/24 1435 MR#: [id number] Acct: [id number] Name: DONNA MARSH Rep #:[id number] : 1955 68 From: Anuja Murcia MD PCP: ORESTES Cano Status:ADM IN Location: [place] [id number] Reason for Visit Reason for Visit: Diagnoses Other low back pain (05/14/24) Acute kidney failure, unspecified (05/14/24) Unspecified fall, initial encounter (05/14/24) Subjective Subjective Plan was for patient to be discharged to a group home facility however she was found to have [...] % (Auto) 66.6, Lymph % (Auto) 22.2, Alcorn % (Auto) 8.0, Eos % (Auto) 2.4, [...] ? Requested for PT OT eval and medical social worker to assist with discharge planning 3. Acute [...] documentation, 40minutes Charges/Coding Visit Charges Inpatient E&M: 14754 [facility] Hosp L2 05/16/24 1436 <Electronically signed by Anuja Murcia MD> Cosigner Signature (if applicable): CC: ~ Signed [facility] Work Phone: 1([phone]) 669-155704-04-2025 Radiology Diagnostic study [facility]04-04-2025 Discharge summary Author Anuja Murcia [facility] Note Date/Time May 16, 2024 9:20 am [facility] Medical Records Department [address] [place] [address] Transfer to [facility] MR#: [id number] Acct: [id number] Name: DONNA MARSH Rep #:[id number] : 1955 68 From: Anuja Murcia MD PCP: ORESTES Cano Status:ADM IN Certification of patient admission REQUIRED AT TIME OF ADMISSION. I CERTIFY THAT POST-HOSPITAL ECF SERVICES ARE REQUIRED TO BE GIVEN ON AN IN-PATIENT BASIS BECAUSE OF THE ABOVE NAMED PATIENT'S NEED FOR LONG-TERM CARE ON A CONTINUING BASIS FOR THE CONDITION(S) FOR WHICH HE/SHE WAS RECEIVING IN-PATIENT HOSPITAL SERVICES PRIOR TO HIS/HER TRANSFER TO THE [facility]. 05/16/24 0920<Electronically signed by Anuja Murcia MD> [...] ? Requested for PT OT eval and medical social worker to assist with discharge planning 3. Acute [...] 1-11/21) Referrals / Follow Up: Rudy Boyer TRAUMA COORDINATOR-C [Primary Care Provider] - Within 2 Weeks Disposition Disposition (needs filled in before D/C Order can be placed): Retirement Facility 05/16/24 0920 <Electronically signed by Anuja Murcia MD> Cosigner Signature (if applicable): CC: ORESTES Boyer; Dr. Kanwal Aguilar MD; Dr. Jameson Carrillo MD ~ [facility] Work Phone: 1(332) 735-344704-04-2025 Discharge summary Author Anuja Murcia [facility] Note Date/Time May 17, 2024 2:32 pm [facility] Medical Records Department [address] [place] [address] Discharge Summary 05/16/24 09 MR#: [id number] Acct: [id number] Name: DONNA MARSH Rep #:[id number] : 1955 68 From: Anuja Murcia MD PCP: ORESTES Cano Status:ADM IN Location: [place] [address] Providers Date of Admission: 05/14/24 Date of [...] ? Requested for PT OT eval and medical social worker to assist with discharge planning 3. Acute [...] % (Auto) 66.6, Lymph % (Auto) 22.2, Alcorn % (Auto) 8.0, Eos % (Auto) 2.4, [...] Fever, pain -11/21) Referrals / Follow Up: Rudy Boyer NP-C [Primary Care Provider] - Within 2 Weeks Disposition Disposition (needs filled in before D/C Order can be placed): Retirement Facility Charges/Coding Visit Charges Inpatient E&M: 63688 Disch Hosp >30min 05/16/24 0921 <Electronically signed by Anuja Murcia MD> Cosigner Signature (if applicable): CC: ORESTES Boyer; Dr. Anuja Murcia MD~ Signed ADDENDUM by Dr. Anuja Murcia MD on 05/17/24 at 1432 Addendum Patient discharge was delayed for a day following markedly elevated blood pressure. Patient was discharged back to the group home facility followingstabilization of blood pressure. No further changes made to patient antihypertensive regimen since blood pressure did not drop significantly the following day. 05/17/24 1432<Electronically signed by Anuja Murcia MD> Cosigner Signature (if applicable): cc: ORESTES Boyer; Dr. Anuja Murcia MD ~* Signed [facility] Work Phone: 1([phone]) [phone] [facility] Date/Time May 17, 2024 2:25 pm [facility] Medical Records Department [address] [place] [address] Progress Note - Nephrology 05/16/24902 MR#: [id number] Acct: [id number] Name: DONNA MARSH Rep #:[id number] : 1955 68 From: Suma cook TRAUMA COORDINATOR-C PCP: ORESTES Cano Status:ADM IN Location: [place] [address] Subjective Subjective No complaints. No overnight events [...] % (Auto) 66.6, Lymph % (Auto) 22.2, Alcorn % (Auto) 8.0, Eos % (Auto) 2.4, [...] of DURAN. Patient has never required any INTERN. For this admission creatinine was 1.13 on [...] by Suma CARLISLE> Cosigner Signature (if applicable): 05/17/24 1425 <Electronically signed by Jameson Carrillo MD> CC: ~ Signed [facility] Work Phone: 1(871) 874-930404-04-2025 [facility]04-03-2025 Consult note Author Suma Robertson [facility] Note Date/Time May 15, 2024 9:15 pm [facility] Medical Records Department [address] [place] [address] Consultation - Nephrology 05/15/24 1150 MR#: [id number] Acct: [id number] Name: DONNA MARSH Rep #:[id number] : 1955 68 From: Suma cook NP-C PCP: ORESTES Cano Status:ADM IN Location: [place] [address] Documented by User: ORESTES Jaffe 05/15/24 12:02 [...] of DURAN. Patient has never required any INTERN. For this admission creatinine was 1.13 on [...] with presence of proteinuria who presented to [place] emergency room on May 13 due to [...] of hospitalization. Patient is never required any INTERN. Currently patient denies any nausea or vomiting. Patient does not take NSAIDs. Per patient's daughter who is at bedside she feels patient's intake hasbeen poor during this hospitalization. No hematuria [facility] Medical History (Updated 05/15/24 @ 11:54 by ORESTES Jaffe) DURAN (acute kidney injury) Sepsis High anion gap metabolic acidosis Acute kidney injury Candidal intertrigo Acute UTI Recurrent falls Acute delirium Altered level of consciousness Acute encephalopathy Myocardial infarction type 2 Non-ST elevation [place] (NSTEMI) Hiatal hernia Irritable bowel Back pain [...] % (Auto) 58.2, Lymph % (Auto) 30.1, Alcorn % (Auto) 6.3, Eos % (Auto) 4.7, [...] calculus in the right kidney. Reading Location: [facility] Documented by User: Dr. Jameson Carrillo MD [...] of DURAN. Patient has never required any INTERN. For this admission creatinine was 1.13 on [...] plan reviewed with Dr. Carrillo. addendum dw [employer]CHNICIAN HPI Consult Data Date of Consult: 05/15/24 [facility] Medical History (Updated 05/15/24 @ 11:54 by ORESTES Jaffe) DURAN (acute kidney injury) Sepsis High anion gap metabolic acidosis Acute kidney injury Candidal intertrigo Acute UTI Recurrent falls Acute delirium Altered level of consciousness Acute encephalopathy Myocardial infarction type 2 Non-ST elevation IL (NSTEMI) Hiatal hernia Irritable bowel Back pain [...] <Electronically signed by Jameson Carrillo MD> CC: TRAUMA COORDINATOR-C Rudy Boyer~ Signed [facility] Work Phone: 1([phone]) [phone] Progress note Author Anuja Murcia [facility] Note Date/Time May 15, 2024 11:0 4am [facility] Medical Records Department [address] [facility] [place] [address] Progress Note - Hospitalist 05/15/24 1051 MR#: [id number] Acct: [id number] Name: DONNA MARSH Rep #:[id number] : 1955 68 From: Anuja Murcia MD PCP: ORESTES Cano Status:ADM IN Location: [place] [address] Reason for Visit Reason for Visit: Diagnoses [...] % (Auto) 58.2, Lymph % (Auto) 30.1, Alcorn % (Auto) 6.3, Eos % (Auto) 4.7, [...] calculus in the right kidney. Reading Location: [place] [address] Physical Exam Narrative GENERAL: cooperative HEENT: Atraumatic; [...] ? Requested for PT OT eval and medical social worker to assist with discharge planning 3. Acute [...] documentation, 40minutes Charges/Coding Visit Charges Inpatient E&M: 92235 Subs Hosp L2 05/15/24 1104 <Electronically signed by Anuja Murcia MD> Cosigner Signature (if applicable): CC: ~ Signed [facility] Work Phone: 1(325) 771-266704-02-2025 Evaluation note* Diagnosis Onset Date Resolution Status Admit Date Intractable low back pain acute May 14, 2024 11:43am Hypertension chronic May 14 11:43am DURAN (acute kidney injury) resolved May 14, 2024 11:43am Fall resolved May 14 11:43am Inability to walk resolved May 142024 11:43am Chest pain acute May 29 1:18pm Gastroenteritis acute May 1:18pm Acute cystitis without hematuria acu te September 01, 2024 2:33am Chronic anticoagulation acute J chelsea2024 2:33am Closed L3 vertebral fracture acute September 01, 2024 2:33am Erythrocytosis acute September 01, 2024 2:33am Frequent falls acute September 01, 2024 2:33am Hypercalcemia acute September 01, 2024 2:33am Paroxysmal atrial fibrillation acute September 01, 2024 2:33am Sepsis acute September 01 2:33am Septic encephalopathy acute Aug 2:33am Transaminitis acute September 01, 2024 2:33am [facility] Work Phone: 1(544) 123-437804-02-2025 Radiology Diagnostic study [facility]04-02-2025 Progress note Author Anuja Murcia [facility] Note Date/Time May 14, 2024 10:1 8am [facility] Medical Records Department [address] [place] [address] Progress Note - Hospitalist 05/14/24 1011 MR#: [id number] Acct: [id number] Name: DONNA MARSH Rep #:[id number] : 1955 68 From: Anuja Murcia MD PCP: ORESTES Cano Status:ADM DANIEL Location: [place] [address] Reason for Visit Reason for Visit: Diagnoses [...] 100/58 L 97 Room Air 05/14/24 04:31 04/02/25 04:31 05/14/24 04:31 05/14/24 04:31 05/14/24 08:25 [...] 87.9 H, Lymph % (Auto) 5.0 L, Alcorn % (Auto) 6.1, Eos % (Auto) 0.1, [...] Clarity Clear, Urine pH 6.0, Ur Specific Bude 1.010, Urine Protein 100 H, Urine Glucose [...] 84.6 H, Lymph % (Auto) 8.3 L, Alcorn % (Auto) 6.4, Eos % (Auto) 0.1, [...] ischemic changes and age-related changes. Reading Location: [facility] Lumbar Spine CT 05/13/24 16:45 IMPRESSION: No obvious acute fracture. Severe multilevel degenerative changes, unchanged. Reading Location: [facility] Physical Exam Narrative GENERAL: cooperative HEENT: [...] ? Requested for PT OT eval and medical social worker to assist with discharge planning 3. Acute [...] 53 Minutes Charges/Coding Visit Charges Inpatient E&M: 37327 Subs Hosp L3 05/14/24 1018 <Electronically signed by Anuja Murcia MD> Bob Signature (if applicable): CC: ~ Signed [facility] Work Phone: 1(369) 561-715604-02-2025 History and physical note Author Kanwal Aguilar [facility] Note Date/Time May 13, 2024 10:5 1pm [facility] Medical Records Department [address] [place] [address] H&P Exam - Hospitalist 05/13/242135 MR#: [id number] Acct: [id number] Name: DONNA MARSH Rep #:[id number] : 1955 68 From: Kanwal Aguilar MD PCP: Rudy Boyer, TRAUMA COORDINATOR-C Status:ADM DANIEL Location: [place] [address] HPI - General General Date of Admission: [...] mellitus type II who presents to the [facility] ED on 05/13/24 with history of [...] update given small laceration upon her fall. [facility] Medical History Sepsis High anion gap metabolic acidosis Acute kidney injury Candidal intertrigo Acute UTI Recurrent falls Acute delirium Altered level of consciousness Acute encephalopathy Myocardial infarction type 2 Non-ST elevation IL (NSTEMI) Hiatal hernia Irritable bowel Back pain [...] 87.9 H, Lymph % (Auto) 5.0 L, Alcorn % (Auto) 6.1, Eos % (Auto) 0.1, [...] Clarity Clear, Urine pH 6.0, Ur Specific Bude 1.010, Urine Protein 100 H, Urine Glucose [...] ischemic changes and age-related changes. Reading Location: [facility] Lumbar Spine CT 05/13/24 16:45 IMPRESSION: No obvious acute fracture. Severe multilevel degenerative changes, unchanged. Reading Location: [facility] Assessment & Plan Assessment/Plan (1) Intractable [...] mellitus type II who presents to the [facility] ED on 05/13/24 with history of [...] admission discussions. Charges/Coding Visit Charges Inpatient E&M: 32860 Init Hosp L2 05/13/242250 <Electronically signed by Kanwal Aguilar MD> Cosigner Signature (if applicable): CC: TRAUMA COORDINATOR-C Rudy Boyer; Dr. Kanwal Aguilar MD~ Signed [facility] Work Phone: 1(128) 175-519504-02-2025 Discharge summary Author Adria [facility] Note Date/Time May 13, 2024 10:3 6pm [facility] Medical Records Department [address] [place] [address] Emergency Department Summary 05/13/24 MR#: [id number] Acct: [id number] Name: DONNA MARSH Rep #:[id number] : 1955 68 From: Adria Montenegro MD PCP: ORESTES Cano Status:ADM DANIEL Location: [place] [address] HPI HPI - Fall History of Present [...] back is causing her anxiety as well. [facility] Medical History Sepsis High anion gap metabolic acidosis Acute kidney injury Candidal intertrigo Acute UTI Recurrent falls Acute delirium Altered level of consciousness Acute encephalopathy Myocardial infarction type 2 Non-ST elevation [place] (NSTEMI) Hiatal hernia Irritable bowel Back pain [...] 87.9 H Lymph % (Auto) 5.0 L Alcorn % (Auto) 6.1 Eos % (Auto) 0.1 [...] Clarity Clear Urine pH 6.0 Ur Specific Bude 1.010 Urine Protein 100 H Urine Glucose [...] ischemic changes and age-related changes. Reading Location: [facility] Lumbar Spine CT 05/13/24 16:45 IMPRESSION: No obvious acute fracture. Severe multilevel degenerative changes, unchanged. Reading Location: [facility] Discharge Plan Triage Chief Complaint: Fall ED Provider: Adria Montenegro Dx/Rx/DC Orders Clinical Impression: Fall, Intractable low back pain, Inability to walk Primary Care Provider: Rudy Boyer What to do if you have Problems For any increased pain, shortness of breath, bleeding, nausea or vomiting, chestpain, or any unexpected problems, contact your Primary Care Provider. Call [facility] ([phone]) or report to the closest Emergency Room. Call 911 if necessary. 05/13/242235 <Electronically signed by Adria Montenegro MD> Cosigner Signature (if applicable): CC: ORESTES Boyer ~ Signed [facility] Work Phone: 1(442) 144-747004-01-2025 Radiology Diagnostic study [facility]04-01-2025 Radiology Diagnostic study [facility]04-01-2025 Discharge summary Author Adria Montenegro [facility] Note Date/Time May 13, 2024 10:3 6pm [facility] Medical Records Department [address] [place] [address] Emergency Department Summary 05/13/24 MR#: [id number] Acct: [id number] Name: DONNA MARSH Rep #:[id number] : 1955 68 From: Adria Montenegro MD PCP: ORESTES Cano Status:ADM DANIEL Location: [place] [address] HPI HPI - Fall History of Present [...] back is causing her anxiety as well. [facility] Medical History Sepsis High anion gap metabolic acidosis Acute kidney injury Candidal intertrigo Acute UTI Recurrent falls Acute delirium Altered level of consciousness Acute encephalopathy Myocardial infarction type 2 Non-ST elevation [place] (NSTEMI) Hiatal hernia Irritable bowel Back pain [...] PRN Fever, p ain 05/13/24 05/12/24 History -11/21 buspirone 15 mg tablet 15 mg PO [...] 87.9 H Lymph % (Auto) 5.0 L Alcorn % (Auto) 6.1 Eos % (Auto) 0.1 [...] Clarity Clear Urine pH 6.0 Ur Specific Bude 1.010 Urine Protein 100 H Urine Glucose [...] ischemic changes and age-related changes. Reading Location: [facility] Lumbar Spine CT 05/13/24 16:45 IMPRESSION: No obvious acute fracture. Severe multilevel degenerative changes, unchanged. Reading Location: [facility] Discharge Plan Triage Chief Complaint: Fall ED Provider: Adria Montenegro Dx/Rx/DC Orders Clinical Impression: Fall, Intractable low back pain, Inability to walk Primary Care Provider: Rudy Boyer What to do if you have Problems For any increased pain, shortness of breath, bleeding, nausea or vomiting, chestpain, or any unexpected problems, contact your Primary Care Provider. Call [facility] ([phone]) or report to the closest Emergency Room. Call 911 if necessary. 05/13/242235 <Electronically signed by Adria Montenegro MD> Cosigner Signature (if applicable): CC: TRAUMA COORDINATORJarad Boyer ~ Signed [facility] Work Phone: 1(243) 285-109403-13-2025 Discharge summary Author John Short [facility] Note Date/Time April 24, 2024 2:3 8pm [facility] Medical Records Department [address] [place] [address] Transfer to Extended Care MR#: [id number] Acct: [id number] Name: DONNA MARSH Rep #:[id number] : 1955 68 From: John Short DO PCP: ORESTES Cano Status:ADM IN Certification of patient admission REQUIRED AT TIME OF ADMISSION. I CERTIFY THAT POST-HOSPITAL ECF SERVICES ARE REQUIRED TO BE GIVEN ON AN IN-PATIENT BASIS BECAUSE OF THE ABOVE NAMED PATIENT'S NEED FOR LONG-TERM CARE ON A CONTINUING BASIS FOR THE CONDITION(S) FOR WHICH HE/SHE WAS RECEIVING IN-PATIENT HOSPITAL SERVICES PRIOR TO HIS/HER TRANSFER TO THE ECF. 04/24/24 1438<Electronically signed by John Short DO> Diet Diet Order/Speech Therapy: 04/22/24 13:16 [...] locate a bed for her at the [facility]. I did talk to the patient's [...] PO Q4H PRN PRN (Reason: Fever, pain -11/21) Qty: 0 0RF donepezil 5 mg Tablet [...] Order can be placed): NonSkilled NH/Intermed Care 04/24/248 <Electronically signed by John Short DO> Cosigner Signature (if applicable): CC: ORESTES Boyer; Dr. Kanwal Aguilar MD ~ [facility] Work Phone: 1([phone]) 528-473403-13-2025 Discharge summary Author John [facility] Note Date/Time April 24, 2024 7:1 8pm [facility] Medical Records Department [address] [place] [address] Discharge Summary 04/24/241437 MR#: [id number] Acct: [id number] Name: DONNA MARSH Rep #:[id number] : 1955 68 From: John Short DO PCP: ORESTES Cano Status:ADM IN Location: [facility] GE279-6 Providers Date of Admission: 04/20/24 Date of Discharge: 04/24/24 Primary Care Physician: ORESTES Cano Consultations 04/20/24 21:16 Consult: Color Separation Photographer / Pulmonary Medicine Routine Consulting Provider: Intensivists/Pulmonary [...] locate a bed for her at the [facility]. I did talk to the patient's [...] mg) PO Q4H PRN PRN Fever, pain 1- 11/21 #0 tabs 04/24/24 atorvastatin 20 mg [...] was seen in the emergency room at [facility] after being brought in by squad [...] patient's requested the patient go to a group home facility for short-term rehab services, patient reluctantly [...] NH/Intermed Care Charges/Coding Visit Charges Inpatient E&M: 27349 Disch Hosp >30min 04/24/241917 <Electronically signed by John Short DO> Cosigner Signature (if applicable): CC: ORESTES Boyer; Dr. John Short DO~ Signed [facility] Work Phone: 1(716) 228-874603-13-2025 [facility]03-12-2025 Progress note Author John Short [facility] Note Date/Time April 23, 2024 4:3 5pm [facility] Medical Records Department [address] [place] [address] Progress Note - Hospitalist 04/23/24 1623 MR#: [id number] Acct: [id number] Name: DONNA MARSH Rep #:[id number] : 1955 68 From: John Short DO [...] would like her to go to a group home facility for short-term rehab services, I discussed this with her and at first she did not agree with this but then seem to change her mind and agree for temporary placement at a group home facility. She told me to try the [...] % (Auto) 68.5, Lymph % (Auto) 23.0, Alcorn % (Auto) 6.2, Eos % (Auto) 1.8, [...] locate a bed for her at the [facility]. I did talk to the patient's [...] 35 minutes Charges/Coding Visit Charges Inpatient E&M: 60748 Subs Hosp L2 04/23/24 2742 <Electronically signed by John Short DO> Cosigner Signature (if applicable): CC: ~ Signed [facility] Work Phone: 1(993) 983-925003-11-2025 Progress note Author John [facility] Note Date/Time April 22, 2024 6:4 0pm [facility] Medical Records Department [address] [facility] [place] [address] Progress Note - Hospitalist 04/22/24 1740 MR#: [id number] Acct: [id number] Name: DONNA MARSH Rep #:[id number] : 1955 68 From: John Short DO PCP: ORESTES Cano Status:ADM IN Location: ICU CVICU 4-1 Reason for Visit Reason for Visit: [...] 35 minutes Charges/Coding Visit Charges Inpatient E&M: 90278 Subs Hosp L2 04/22/24 4200 <Electronically signed by John Short DO> Cosigner Signature (if applicable): CC: ~ Signed [facility] Work Phone: 1([phone]) 687-742803-10-2025 Progress note Author John Short [facility] Note Date/Time April 21, 2024 4:5 0pm [facility] Medical Records Department [address] [place] [address] Progress Note - Hospitalist 04/21/24 1642 MR#: [id number] Acct: [id number] Name: DONNA MARSH Rep #:[id number] : 1955 68 From: John Niravmartina PCP: ORESTES Cano Status:ADM IN Location: ICU [...] 79.9 H, Lymph % (Auto) 11.4 L, Alcorn % (Auto) 7.8, Eos % (Auto) 0.2, [...] use of iterative reconstruction technique). Reading Location: [facility] Pelvis X-Ray 04/20/24 15:22 IMPRESSION: Chronic appearing bilateral trochanteric fractures, please correlate. Chronic bilateral pubic rami fractures, worse on the right. No definite acute displaced fracture or dislocation. Right femoral nailand left total hip prosthesis. Chronic compression fractures of the lower lumbar spine. [facility] Abdomen/Pelvis CT 04/20/24 19:49 IMPRESSION: 1. No acute process. 2. Multiple chronic/incidental findings as above. One or more dose reduction techniques were used (e.g., Automated exposure control, adjustment of the mA and/or kV according to patient size, use of iterative reconstruction technique). Reading Location: [facility] Echocardiogram 04/20/24 23:48 Interpretation Summary The estimated [...] 35 minutes Charges/Coding Visit Charges Inpatient E&M: 26245 Subs Hosp L2 04/21/24 1650 <Electronically signed by John Short DO> Cosigner Signature (if applicable): CC: ~ Signed [facility] Work Phone: [phone]) 618-937603-10-2025 Progress note Author Atul Quezada [facility] Note Date/Time April 21, 2024 11: 17am [facility] Medical Records Department [facility] [place] [address] Progress Note - Color Separation Photographer 04/21/24 0741 MR#: [id number] Acct: [id number] Name: DONNA MARSH Rep #:[id number] : 1955 68 From: Atul Quezada DO [...] medicationsas indicated. This note was generated with [employer] dictation software. It may contain incorrectwords, spelling, [...] Sl. Cloudy, Urine pH 5.0, Ur Specific Bude 1.020, Urine Protein 500 H, Urine Glucose [...] 86.6 H, Lymph % (Auto) 6.9 L, Alcorn % (Auto) 5.6, Eos % (Auto) 0.0, [...] 79.9 H, Lymph % (Auto) 11.4 L, Alcorn % (Auto) 7.8, Eos % (Auto) 0.2, [...] microvascular ischemic changes and age-relatedchanges. Reading Location: [facility] Cervical Spine CT 04/20/24 15:14 IMPRESSION: NO ACUTE CERVICAL FRACTURE. DEGENERATIVE CHANGES. One or more dose reduction techniques were used (e.g., Automated exposure control, adjustment of the mA and/or kV according to patient size, use of iterative reconstruction technique). Reading Location: [facility] Chest CT 04/20/24 15:14 IMPRESSION: 1. Visualization is limited by motion artifact. No large focal consolidation orpleural effusion. 2. Severe coronary artery calcifications. One or more dose reduction techniques were used (e.g., Automated exposure control, adjustment of the mA and/or kV according to patient size, use of iterative reconstruction technique). Reading Location: [facility] Pelvis X-Ray 04/20/24 15:22 IMPRESSION: Chronic appearing bilateral trochanteric fractures, please correlate. Chronic bilateral pubic rami fractures, worse on the right. No definite acute displaced fracture or dislocation. Right femoral nailand left total hip prosthesis. Chronic compression fractures of the lower lumbar spine. Reading Location: [facility] Abdomen/Pelvis CT 04/20/24 19:49 IMPRESSION: 1. No acute process. 2. Multiple chronic/incidental findings as above. One or more dose reduction techniques were used (e.g., Automated exposure control, adjustment of the mA and/or kV according to patient size, use of iterative reconstruction technique). Reading Location: [facility] Physical Exam Const alert and [...] flat affect Charges/Coding Visit Charges Inpatient E&M: 32844 Subs Hosp L2 04/21/24 1117 <Electronically signed by Atul Quezada DO> Cosigner Signature (if applicable): CC: ~ Signed [facility] Work Phone: 1([phone]) 695-386203-10-2025 Consult note Author Alden Finn [facility] Note Date/Time April 20, 2024 11:4 5pm [facility] Medical Records Department [address] [place] [address] Consultation - Color Separation Photographer 04/20/24 2331 MR#: [id number] Acct: [id number] Name: DONNA MARSH Rep #:[id number] : 1955 68 From: Alden cole MD [...] possibly severe sepsis. She is now admitted tothe ICU. [facility] Medical History Myocardial infarction type 2 Non-ST elevation [place] (NSTEMI) Hiatal hernia Irritable bowel Back pain [...] 04/20/24 04/20/24 23:59 12:59 23:59 Intake Total 2160 / 2160 Output Total 100 / 100 Balance 2059 I&O: Total Stay 3 04/20/24 15:04 thru 04/20/24 23:30 Intake Total 2160 Output Total 100 Balance 2059 Current Meds Ordered / Administered: Current meds ordered / Administered 3 Generic Name Dose Route Start Last Admin Trade Name Freq PRN Reason Stop Dose Admin Acetaminophen 650 [...] 100 Unit/Ml Insuln.Pen SC Not Given Q6H REI Protocol Melatonin 3 mg 04/20/24 21:16 Melatonin [...] Sl. Cloudy, Urine pH 5.0, Ur Specific Bude 1.020, Urine Protein 500 H, Urine Glucose [...] 86.6 H, Lymph % (Auto) 6.9 L, Alcorn % (Auto) 5.6, Eos % (Auto) 0.0, [...] microvascular ischemic changes and age-relatedchanges. Reading Location: [facility] Cervical Spine CT 04/20/24 15:14 IMPRESSION: NO ACUTE CERVICAL FRACTURE. DEGENERATIVE CHANGES. One or more dose reduction techniques were used (e.g., Automated exposure control, adjustment of the mA and/or kV according to patient size, use of iterative reconstruction technique). Reading Location: [facility] Chest CT 04/20/24 15:14 IMPRESSION: 1. Visualization is limited by motion artifact. No large focal consolidation orpleural effusion. 2. Severe coronary artery calcifications. One or more dose reduction techniques were used (e.g., Automated exposure control, adjustment of the mA and/or kV according to patient size, use of iterative reconstruction technique). Reading Location: [facility] Pelvis X-Ray 04/20/24 15:22 IMPRESSION: Chronic appearing bilateral trochanteric fractures, please correlate. Chronic bilateral pubic rami fractures, worse on the right. No definite acute displaced fracture or dislocation. Right femoral nailand left total hip prosthesis. Chronic compression fractures of the lower lumbar spine. Reading Location: [facility] Abdomen/Pelvis CT 04/20/24 19:49 IMPRESSION: 1. No acute process. 2. Multiple chronic/incidental findings as above. One or more dose reduction techniques were used (e.g., Automated exposure control, adjustment of the mA and/or kV according to patient size, use of iterative reconstruction technique). Reading Location: [facility] Assessment and Plan . Assessment and plan: [...] of this encounter was done via Telemedicine 04/20/241 <Electronically signed by Alden Finn MD> Cosigner Signature (if applicable): CC: TRAUMA COORDINATOR-C Rudy Boyer~ Signed [facility] Work Phone: [phone]) 416-846403-09-2025 Discharge summary Author Monica Alvarado [facility] Note Date/Time April 20, 2024 9:45 pm [facility] Medical Records Department [address] [place] [address] Emergency Department Summary 04/20/24 MR#: [id number] Acct: [id number] Name: DONNA MARSH Rep #:[id number] : 1955 68 From: Monica VELÁSQUEZ PCP: [...] Patient's chart shows she is on Eliquis. [facility] <DIDIER Ohara - Last Filed: 04/20/24 19:08> [facility] Medical History Myocardial infarction type 2 Non-ST elevation [place] (NSTEMI) Hiatal hernia Irritable bowel Back pain [...] 86.6 H Lymph % (Auto) 6.9 L Alcorn % (Auto) 5.6 Eos % (Auto) 0.0 [...] Sl. Cloudy Urine pH 5.0 Ur Specific Bude 1.020 Urine Protein 500 H Urine Glucose [...] ischemic changes and age-related changes. Reading Location: [facility] Cervical Spine CT 04/20/24 15:14 IMPRESSION: NO ACUTE CERVICAL FRACTURE. DEGENERATIVE CHANGES. One or more dose reduction techniques were used (e.g., Automated exposure control, adjustment of the mA and/or kV according to patient size, use of iterative reconstruction technique). Reading Location: [facility] Chest CT 04/20/24 15:14 IMPRESSION: 1. Visualization is limited by motion artifact. No large focal consolidation or pleural effusion. 2. Severe coronary artery calcifications. One or more dose reduction techniques were used (e.g., Automated exposure control, adjustment of the mA and/or kV according to patient size, use of iterative reconstruction technique). Reading Location: [facility] Pelvis X-Ray 04/20/24 15:22 IMPRESSION: Chronic appearing bilateral trochanteric fractures, please correlate. Chronic bilateral pubic rami fractures, worse on the right. No definite acute displaced fracture or dislocation. Right femoral nail and left total hip prosthesis. Chronic compression fractures of the lower lumbar spine. Reading Location: [facility] ED attending interpretation 1 view [...] 86.6 H Lymph % (Auto) 6.9 L Alcorn % (Auto) 5.6 Eos % (Auto) 0.0 [...] Sl. Cloudy Urine pH 5.0 Ur Specific Bude 1.020 Urine Protein 500 H Urine Glucose [...] ischemic changes and age-related changes. Reading Location: [facility] Cervical Spine CT 04/20/24 15:14 IMPRESSION: NO ACUTE CERVICAL FRACTURE. DEGENERATIVE CHANGES. One or more dose reduction techniques were used (e.g., Automated exposure control, adjustment of the mA and/or kV according to patient size, use of iterative reconstruction technique). Reading Location: [facility] Chest CT 04/20/24 15:14 IMPRESSION: 1. Visualization is limited by motion artifact. No large focal consolidation or pleural effusion. 2. Severe coronary artery calcifications. One or more dose reduction techniques were used (e.g., Automated exposure control, adjustment of the mA and/or kV according to patient size, use of iterative reconstruction technique). Reading Location: [facility] Pelvis X-Ray 04/20/24 15:22 IMPRESSION: Chronic appearing bilateral trochanteric fractures, please correlate. Chronic bilateral pubic rami fractures, worse on the right. No definite acute displaced fracture or dislocation. Right femoral nail and left total hip prosthesis. Chronic compression fractures of the lower lumbar spine. Reading Location: [facility] <Dr. Joe Preston MD - Last Filed: 04/20/24 15:39> Critical Care Time Critical Care Time: Yes Critical care time (excluding procedures): 30-74 minutes, Including time spent:, Discussing w/Patient &/or Family/Inventory Taker, Discussing w/Consultants, Arranging Admission or Transfer, Performing Direct Patient Care at Bedside and - (35 minutes.) Discharge Plan Dx/Rx/DC Orders Clinical Impression: Altered level of consciousness, Acute dehydration, Acute delirium, History of diabetes mellitus, Chronic anticoagulation, Recurrent falls, Acute UTI, Candidal intertrigo, High anion gap metabolic acidosis, Acute kidney injury Disposition Disposition: Acute Care Hospital [facility] What to do if you have Problems For any increased pain, shortness of breath, bleeding, nausea or vomiting, chest pain, or any unexpected problems, contact your Primary Care Provider. Call [facility] ([phone]) or report to the closest Emergency Room. Call 911 if necessary. 04/20/24 1908 <Electronically signed by Monica VELÁSQUEZ> Cosigner Signature (if applicable): 04/20/245 <Electronically signed by Joe Preston MD> CC: ORESTES Boyer ~ Signed [facility] Work Phone: [phone]) 900-608203-09-2025 History and physical note Author Kanwal Aguilar [facility] Note Date/Time April 20, 2024 7:51 pm [facility] Medical Records Department [address] [place] [address] H&P Exam - Hospitalist 04/20/241917 MR#: [id number] Acct: [id number] Name: DONNA MARSH Rep #:[id number] : 1955 68 From: Kanwal Aguilar MD PCP: Rudy Boyer, TRAUMA COORDINATOR-C Status:REG ER Location: ED HPI - General [...] mellitus type II who presents to the [facility] ED on 04/20/24 with history of [...] 1, acetaminophen 650 mg rectal x 1. PFSH Medical History Myocardial infarction type 2 Non-ST elevation IL (NSTEMI) Hiatal hernia Irritable bowel Back pain [...] Sl. Cloudy, Urine pH 5.0, Ur Specific Bude 1.020, Urine Protein 500 H, Urine Glucose [...] 86.6 H, Lymph % (Auto) 6.9 L, Alcorn % (Auto) 5.6, Eos % (Auto) 0.0, [...] microvascular ischemic changes and age-relatedchanges. Reading Location: [facility] Cervical Spine CT 04/20/24 15:14 IMPRESSION: NO ACUTE CERVICAL FRACTURE. DEGENERATIVE CHANGES. One or more dose reduction techniques were used (e.g., Automated exposure control, adjustment of the mA and/or kV according to patient size, use of iterative reconstruction technique). Reading Location: [facility] Chest CT 04/20/24 15:14 IMPRESSION: 1. Visualization is limited by motion artifact. No large focal consolidation orpleural effusion. 2. Severe coronary artery calcifications. One or more dose reduction techniques were used (e.g., Automated exposure control, adjustment of the mA and/or kV according to patient size, use of iterative reconstruction technique). Reading Location: [facility] Pelvis X-Ray 04/20/24 15:22 IMPRESSION: Chronic appearing bilateral trochanteric fractures, please correlate. Chronic bilateral pubic rami fractures, worse on the right. No definite acute displaced fracture or dislocation. Right femoral nailand left total hip prosthesis. Chronic compression fractures of the lower lumbar spine. [facility] Assessment & Plan Assessment/Plan (1) Sepsis: (2) [...] mellitus type II who presents to the [facility] ED on 04/20/24 with history of [...] facility protocol given sepsis presentation, will consult tripe washer per protocol, ABG requested, given abdominal generalized [...] renal artery obstruction: Temporarily place on ASA [place], holding NOAC, holding oral HTN regimen given [...] 16 minutes. Charges/Coding Visit Charges Inpatient E&M: 53328 Init Hosp L3 Procedures Hospitalists Procedures: 34381 Advncd Care Plan 30 Min 04/20/241950 <Electronically signed by Kanwal Aguilar MD> Cosigner Signature (if applicable): CC: TRAUMA COORDINATOR-Madelyn Boyer; Dr. Kanwal Aguilar MD~ Signed [facility] Work Phone: 1([phone]) 830-531703-09-2025 Radiology Diagnostic study [facility]03-09-2025 Radiology Diagnostic study [facility]03-09-2025 Radiology Diagnostic study [facility] 04-20-2024 Radiology Diagnostic study [facility]03-09-2025 Radiology Diagnostic study [facility]01-05-2025 [facility]12-13-2024 Evaluation note* Diagnosis Onset Date Resolution Status Admit Date Chest pain acute January 25, 2024 8:18am Gastroenteritis acute January 25, 2024 8:18am Acute hyperglycemia resolved 2024 9:03pm Acute lactic acidosis resolved Feb 9:03pm DURAN (acute kidney injury) resolved February 13, 2024 9:03pm High anion gap metabolic acidosis resolved February 12 9:03pm Leukocytosis resolved February 13, 2024 9:03pm Sepsis resolved February 12 9:03pm Toxic metabolic encephalopathy resol imer February 13, 2024 9:03pm Acute delirium inactive April 20, 2024 7:19pm Acute encephalopathy inactive 2024 7:19pm Acute kidney injury inactive April [...] May 13, 2024 9:36pm Hypertension chronic May 13 025 9:36pm [facility] Work Phone: 1(552) 312-412012-13-2024 Evaluation note* Diagnosis Onset Date Resolution Status Admit Date Chest pain acute January 25, 2024 8:18am Gastroenteritis acute January 25, 2024 8:18am Acute hyperglycemia resolved 2024 9:03pm Acute lactic acidosis resolved Feb 9:03pm DURAN (acute kidney injury) resolved February 13, 2024 9:03pm High anion gap metabolic acidosis resolved February 12 9:03pm Leukocytosis resolved February 13, 2024 9:03pm Sepsis resolved February 12 9:03pm Toxic metabolic encephalopathy resol imer February 13, 2024 9:03pm Acute delirium inactive April 20, 2024 7:19pm Acute encephalopathy inactive Gilberto 2024 7:19pm Acute kidney injury inactive April [...] 14, 2024 11:43am Hypertension chronic May 14 025 11:43am [facility] Work Phone: 1(653) 799-660511-23-2024 [facility]11-18-2024 Evaluation note* Diagnosis Onset Date Resolution Status [...] 13, 2024 9:03pm Sepsis resolved February 12 9:03pm Toxic metabolic encephalopathy resol imer February 13, 2024 9:03pm Acute kidney injury acute April 20, 2024 8:22pm Acute UTI acute April 20 8:22pm Candidal intertrigo acute April 20, 2024 8:22pm High anion gap metabolic acidosis acute April 20, 2024 8:22pm Recurrent falls acute April 8:22pm Sepsis acute April 20 8:22pm [facility] Work Phone: 1(963) 971-550311-18-2024 Evaluation note* Diagnosis Onset Date Resolution Status [...] 9:03pm High anion gap metabolic acidosis resolved Arti 1st, 202 5 9:03pm Leukocytosis resolved February 13, 2024 9:03pm [...] April 7:19pm Sepsis acute April 20 7:19pm [facility] Work Phone: 1(454) 968-833604-09-2024 Miscellaneous Notes* Telephone Encounter - Jc Riggs RN - 05/22/2023 7:49 AM EDT Allergy & immunology [facility] Tele[facility] encounter Note * Telephone Encounter - Ruthie Alaniz MA - 04/26/2023 1:16 PM EDT Spoke to the nurse and informed her any medication questions needs to be [id number] Miscellaneous Notes* Telephone Encounter - Ruthie Alaniz MA - 04/26/2023 1:16 PM EDT Spoke to the nurse and informed her any medication questions needs to be answered from PCP * Telephone Encounter - Cecilia Parker - 04/20/2023 2:59 PM EST [facility] called in w/ drug allergies the pt has: Oxy- codeine allergy, Oxycodone- Morphine allergy, Meloxicam- Naproxen allergy. Rudy wants to make sure its ok to give pt meds or not. Please Advise [phone]. * Telephone Encounter - Collin Henao - 04/20/2023 11:26 AM EST RN Rudy calling to request an order for a weekend phone call to check in with patient. They are concerned about her taking her medication (antibiotics) as well as concern for hospital re-admission. Please call Rudy with any questions: [phone] Fax order to: [phone] Thank you! * Telephone Encounter - Collin Henao - 04/17/2023 10:11 AM EST Pt is currently admitted to [facility] for accelerated hypertension. This admissionwas on [...] 04/12/2023 3:23 PM EST Name of caller: [facility] Contact phone number: [phone] Provider: Beth Lozano Practice: Ortho Chief Complaint/Reason for Call: [facility] called stating they got thereferral for the pt, but they also require the most recent OV notes Has to be within the last 90 days), a written and signed order from the dr, the pt's medication list, and a demographic sheet. Theyneed it faxed to [phone]. Please advise. Best time of day caller can be reached: Any Patient advised that office/PCP has 24-48 business hours to return their call: No documented in this encounterSKet[facility] [id number] Telephone encounter Note* Telephone Encounter - Cecilia Parker - 04/20/2023 2:59 PM EST [facility] called in w/ drug allergies the pt has: Oxy- codeine allergy, Oxycodone- Morphine allergy, Meloxicam- Naproxen allergy. Rudy wants to make sure its ok to give pt meds or not. Please Advise [phone]. [facility] [id number] Miscellaneous Notes* Telephone Encounter - Cecilia Parker - 04/20/2023 2:59 PM EST [facility] called in w/ drug allergies the pt has: Oxy- codeine allergy, Oxycodone- Morphine allergy, Meloxicam- Naproxen allergy. Rudy wants to make sure its ok to give pt meds or not. Please Advise [phone]. * Telephone Encounter - Collin Henao - 04/20/2023 11:26 AM EST [facility] calling to request an order for a weekend phone call to check in with patient. They are concerned about her taking her medication (antibiotics) as well as concern for hospital re-admission. Please call Rudy with any questions: [phone] Fax order to: [phone] Thank you! * Telephone Encounter - Collin Henao - 04/17/2023 10:11 AM EST Pt is currently admitted to [facility] for accelerated hypertension. This admissionwas on [...] 04/12/2023 3:23 PM EST Name of caller: [facility] Contact phone number: [phone] Provider: Beth Lozano Practice: Ortho Chief Complaint/Reason for Call: [facility] called stating they got thereferral for the pt, but they also require the most recent OV notes Has to be within the last 90 days), a written and signed order from the dr, the pt's medication list, and a demographic sheet. Theyneed it faxed to [phone]. Please advise. Best time of day caller can be reached: Any Patient advised that office/PCP has 24-48 business hours to return their call: No documented in this [facility]03-08-2024 Telephone encounter Note* Telephone Encounter - Collin Henao - 04/20/2023 11:26 AM EST [facility] calling to request an order for a weekend phone call to check in with patient. They are concerned about her taking her medication (antibiotics) as well as concern for hospital re-admission. Please call Rudy with any questions: [phone] Fax order to: [phone] Thank you! [facility] [id number] Discharge summary Author Anuja Murcia [facility] April 18, 2023 7:13am Note Date/Time April 18, 2023 7:13 am [facility] Medical Records Department [address] [place] [address] Discharge Summary 04/18/23 0710 MR#: [id number] Acct: [id number] Name: DONNA MARSH Rep #:[id number] : 1955 67 From: Anuja Murcia MD PCP: ORESTES Cano Status:ADM IN Location: [facility] [id number] Providers Date of Admission: 04/14/23 Date of [...] abdomen obtained was [facility] 1. Acute proctitis ?Wall thickening [...] % (Auto) 65.0, Lymph % (Auto) 25.6, Alcorn % (Auto) 6.3, Eos % (Auto) 2.8, [...] Providers: Anuja Noel; Tamiko Quigley; Miguel Chapman; Reina,Christopher Instructions Patient Instructions: Urinary Tract Infections in [...] it as [facility] in the [facility] and use Zofran for any nausea or [...] Self Care Charges/Coding Visit Charges Inpatient E&M: 04216 Disch Hosp >30min 04/18/23 0713 <Electronically signed by Anuja Murcia MD> Cosigner Signature (if applicable): CC: ORESTES Boyer; Dr. Anuja Murcia MD~ Signed [facility] Work Phone: 1(385) 329-261403-05-2024 Progress note Author Christopher Friend [facility] April 17, 2023 6:44pm Note Date/Time April 17, 2023 6:44 pm [facility] Medical Records Department [address] [place] [address] Progress Note - GI 04/17/23 1842 MR#: [id number] Acct: [id number] Name: DONNA MARSH Rep #:[id number] : 1955 67 From: Christopher Friend DO PCP: ORESTES Cano Status:ADM IN Location: [...] % (Auto) 66.9, Lymph % (Auto) 25.2, Alcorn% (Auto) 5.3, Eos % (Auto) 2.0, Baso [...] (3) Hyperammonemia: Charges/Coding Visit Charges Inpatient E&M: 72671 Subs Hosp L3 04/17/231843 <Electronically signed by Christopher Friend DO> Cosigner Signature (if applicable): CC: ~ Signed [facility] Work Phone: 1(641) 968-354903-05-2024 Telephone encounter Note* Telephone Encounter - Collin Henao - 04/17/2023 10:11 AM EST Pt is currently admitted to [facility] for accelerated hypertension. This admissionwas on 04/13. [facility] will be closing the order for home care at this time. New orders will need to be sent if she needs home care after her current hospital stay. [place] [facility] HospitalKsjele11-51-0494 Miscellaneous Notes* Telephone Encounter - Collin Henao - 04/17/2023 10:11 AM EST Pt is currently admitted to [facility] for accelerated hypertension. This admissionwas on 04/13. [facility] will be closing the order for home care at this time. New orders will need to be sent if she needs home care after her current hospital stay. CLAYTON * Telephone Encounter - Christiane Victoria - 04/13/2023 9:08 AM EST Documents all printed, waiting for referral to be signed by Ciro on Sunday and then I will fax everything back to them * Telephone Encounter - Danyelle Ewing - 04/12/2023 3:23 PM EST Name of caller: [facility] Contact phone number: [phone] Provider: Beth Lozano Practice: Ortho Chief Complaint/Reason for Call: [facility] called stating they got thereferral for the pt, but they also require the most recent OV notes Has to be within the last 90 days), a written and signed order from the dr, the pt's medication list, and a demographic sheet. Theyneed it faxed to [phone]. Please advise. Best time of day caller can be reached: Any Patient advised that office/PCP has 24-48 business hours to return their call: No documented in this [facility]03-05-2024 Progress note Author Anuja Murcia [facility] April 17, 2023 7:37am Note Date/Time April 17, 2023 7:29 am [facility] Medical Records Department [address] [place] [address] Progress Note - Hospitalist 04/17/23723 MR#: [id number] Acct: [id number] Name: DONNA MARSH Rep #:[id number] : 1955 67 From: Anuja Murcia MD [...] % (Auto) 66.9, Lymph % (Auto) 25.2, Alcorn% (Auto) 5.3, Eos % (Auto) 2.0, Baso [...] abdomen obtained was consistent with proctitis admitted [facility] inpatient management 1. Acute proctitis ?Wall thickening [...] 50 Minutes Charges/Coding Visit Charges Inpatient E&M: 90665 Subs Hosp L3 04/17/23 0737 <Electronically signed by Anuja Murcia MD> Cosigner Signature (if applicable): CC: ~ Signed [facility] Work Phone: 1(831) 287-920703-04-2024 Procedure [facility] 04-16-2023 Procedure [facility]03-04-2024 Progress note Author Anuja Murcia [facility] April 16, 2023 7:58am Note Date/Time April 16, 2023 7:30 am [facility] Medical Records Department [address] [place] [address] Progress Note - Hospitalist 04/16/23 0729 MR#: [id number] Acct: [id number] Name: DONNA MARSH Rep #:[id number] : 1955 67 From: Anuja Murcia MD [...] % (Auto) 66.7, Lymph % (Auto) 24.6, Alcorn% (Auto) 5.6, Eos % (Auto) 2.6, Baso [...] abdomen obtained was consistent with proctitis admitted [facility] inpatient management 1. Acute proctitis ?Wall thickening [...] 50 Minutes Charges/Coding Visit Charges Inpatient E&M: 29744 Subs Hosp L3 04/16/23 0758 <Electronically signed by Anuja Murcia MD> Cosigner Signature (if applicable): CC: ~ Signed [facility] Work Phone: 1(292) 801-115403-04-2024 History and physical note Author Anuja Brown [facility] April 16, 2023 2:06am Note Date/Time April 14, 2023 7:01 am [facility] Medical Records Department [address] [place] [address] H&P Exam - Hospitalist 04/14/2315 MR#: [id number] Acct: [id number] Name: DONNA MARSH Rep #:[id number] : 1955 67 From: Anuja Camarillo DO [...] tobacco abuse (quit ~1992), CAD; s/p NSTEMI (2018), history of atrial fibrillation, history of [...] from facility back home who presents to [facility] ER complaining of nausea, vomiting and [...] expected to be greater than 48 hours. [facility] Medical History Anxiety Atrial fibrillation Back pain [...] (Auto) 88.6 H, Lymph % (Auto)8.2 L, Alcorn % (Auto) 2.2, Eos % (Auto) 0.2, [...] Sl. Cloudy, Urine pH 7.0, Ur Specific Bude 1.010, Urine Protein 500 H, Urine Glucose [...] Signed: Sharita Marcos MD at 4:55 EST Reading Location ID and [facility]: [facility] Tel , Service support , Assessment & Plan Assessment/Plan (1) Proctitis: [...] culture and sensitivity data. Give Tylenol prn fizz-xp-nkrnoqqx (level 1-5/10) pain or fever. Give Dilaudid [...] with patient having spent ~3 months at [facility]. PT/OT and case management to see patient [...] 75 minutes. Charges/Coding Visit Charges Inpatient E&M: 33089 Init Hosp L3 04/14/23 0749 <Electronically signed [...] 1992), coronary artery disease status postnon-ST elevation [place] (2017), history of atrial fibrillation, history of [...] from facility back home who presents to [facility] complaining of nausea, vomiting and abdominal [...] Noel DO> Cosigner Signature (if applicable): cc: TRAUMA COORDINATORJarad Boyer; Dr. Anuja Noel DO ~* Signed [facility] Work Phone: 1(358) 594-392803-03-2024 Consult note Author Christopher Huang [facility] April 15, 2023 5:19pm Note Date/Time April 15, 2023 5:02 pm [facility] Medical Records Department [address] [facility] [place] [address] Consultation - GI 04/15/23 1658 MR#: [id number] Acct: [id number] Name: DONNA MARSH Rep #:[id number] : 1955 67 From: Christopher Huang DO [...] on admission due to suspected hypertensive urgency. [facility] Medical History Anxiety Atrial fibrillation Back pain [...] % (Auto) 69.8, Lymph % (Auto) 22.3, Alcorn% (Auto) 6.3, Eos % (Auto) 1.1, Baso [...] NORMA antibodies Charges/Coding Visit Charges Inpatient E&M: 10493 Init Hosp L3 04/15/23 1719 <Electronically signed by Christopher Huang DO> Cosigner Signature (if applicable): CC: ORESTES Boyer; Dr. Anuja Noel DO; Christopher Huang DO~ Signed [facility] Work Phone: 1(798) 429-112203-03-2024 Progress note Author Tamiko Quigley [facility] April 15, 2023 10:55am Note Date/Time April 15, 2023 10:5 5am [facility] Medical Records Department [address] [place] [address] [place] [address] Progress Note - Hospitalist 04/15/23 1045 MR#: [id number] Acct: [id number] Name: DONNA MARSH Rep #:[id number] : 1955 67 From: Tamiko Quigley DO [...] and is to be seen at the [facility] in May. Objective Data Objective Data [...] % (Auto) 69.8, Lymph % (Auto) 22.3, Alcorn% (Auto) 6.3, Eos % (Auto) 1.1, Baso [...] tell me that she has follow-up at [facility] in May -Recommend ongoing outpatient follow-up [...] -Full code Charges/Coding Visit Charges Inpatient E&M: 59773 Subs Hosp L2 04/15/23 1055 <Electronically signed by Tamiko Quigley DO> Cosigner Signature (if applicable): CC: ~ Signed [facility] Work Phone: 1(276) 874-169603-03-2024 Progress note Author Tamiko Quigley [facility] April 15, 2023 10:45am Note Date/Time April 14, 2023 3:32 pm [facility] Medical Records Department [address] [place] [address] Progress Note - Hospitalist 04/14/23 1508 MR#: [id number] Acct: [id number] Name: DONNA MARSH Rep #:[id number] : 1955 67 From: Tamiko Quigley DO PCP: ORESTES Cano Status:ADM IN Location: ICU ICU01-1 Reason for Visit Reason for Visit: Nausea/vomiting/abdominal pain Subjective Subjective Mrs. Marsh is a 67-year-old white female who presented to the emergency department at [facility] on 04/14/2023 in the morning with [...] her transient hypotension she was admitted the [facility] for further monitoring however she does not [...] 04/13/23 04/14/23 23:59 23:59 23:59 Intake Total 2050.25 / 2050.25 Output Total 250 / 250 Balance 1800.25 [...] (Auto) 88.6 H, Lymph % (Auto)8.2 L, Alcorn % (Auto) 2.2, Eos % (Auto) 0.2, [...] Sl. Cloudy, Urine pH 7.0, Ur Specific Bude 1.010, Urine Protein 500 H, Urine Glucose [...] Cosigner Signature (if applicable): CC: ~ Signed [facility] Work Phone: 1(694) 750-803703-02-2024 Discharge summary Author Marcos Hoffman [facility] April 14, 2023 7:48am Note Date/Time April 14, 2023 5:15 am [facility] Medical Records Department [address] [place] [address] Emergency Department Summary 04/14/23 MR#: [id number] Acct: [id number] Name: DONNA MARSH Rep #:[id number] : 1955 67 From: Marcos Hoffman DO PCP: ORESTES Cano Status:ADM IN Location: [place] [address] ADDENDUM by Marcos Hoffman DO on 04/14/23 [...] Hoffman DO> Cosigner Signature (if applicable): cc: TRAUMA COORDINATOR-C Rudy Boyer ~* Signed HPI History of Present Illness Chief Complaint: Nausea/Vomiting/Diarrhea Informant: patient and spouse/S.O. Narrative Narrative: Patient is a 67-year-old female with past medical history of hypertension hyperlipidemia diabetes chronic kidney disease and previous hip fracture requiring ORIF. Patient and spouse state that after the fracture and her hospital stay [facility] approximately . They state that she is only been home for the last week or so and that there is been difficulty in having her continue the medications which she was receiving at the [facility]. Patient states that inthe last few hours she developed generalized abdominal discomfort with bouts of nausea and vomiting and overall sense of feeling unwell. She also states that is been approximate 24 hours since her last oxycodone use which she also reportsshe was taking daily at the [facility]. Otherwise she denies any fevers or chills or chest pain or shortness of breath. [facility] Medical History Anxiety Atrial fibrillation [...] medications since she is returned from the [facility]. Patient also reported it has been roughly [...] 88.6 H Lymph % (Auto) 8.2 L Alcorn % (Auto) 2.2 Eos % (Auto) 0.2 [...] Sl. Cloudy Urine pH 7.0 Ur Specific Bude 1.010 Urine Protein 500 H Urine Glucose [...] diabetes mellitus Disposition Disposition: Acute Care Hospital [facility] What to do if you have Problems For any increased pain, shortness of breath, bleeding, nausea or vomiting, chestpain, or any unexpected problems, contact your Primary Care Provider. Call [facility] ([phone]) or report to the closest Emergency Room. Call 911 if necessary. 04/14/23 0639 <Electronically signed by Marcos Hoffman DO> Cosigner Signature (if applicable): CC: ORESTES Boyer ~ Signed [facility] Work Phone: 1(229) 645-219403-02-2024 History and physical note Author Anuja Brown [facility] April 14, 2023 7:54am Note Date/Time April 14, 2023 7:01 am [facility] Medical Records Department [address] [place] [address] H&P Exam - Hospitalist 04/14/23 0615 MR#: [id number] Acct: [id number] Name: DONNA MARSH David Rep #:[id number] : 1955 67 From: Anuja Camarillo DO PCP: ORESTES Cano Status:ADM IN Location: [facility] [id number]- 1 HPI - General General Date of Admission: 04/14/23 Date of Service: 04/14/23 Chief Complaint: Nausea, Vomiting and Abdominal Pain. HPI Narrative DONNA MARSH, is a 67 F with a past medical history of essential hypertension, hyperlipidemia, overweight; with BMI of 26.7 this admission, BURKE, DM-2; of unknown control, remote history of tobacco abuse (quit ~1992), CAD; s/p NSTEMI (2018), history of atrial fibrillation, history of [...] from facility back home who presents to [facility] ER complaining of nausea, vomiting and [...] expected to be greater than 48 hours. [facility] Medical History Anxiety Atrial fibrillation Back pain [...] (Auto) 88.6 H, Lymph % (Auto)8.2 L, Alcorn % (Auto) 2.2, Eos % (Auto) 0.2, [...] Sl. Cloudy, Urine pH 7.0, Ur Specific Bude 1.010, Urine Protein 500 H, Urine Glucose [...] culture and sensitivity data. Give Tylenol prn yjgj-dc-bulopvam (level 1-5/10) pain or fever. Give Dilaudid [...] with patient having spent ~3 months at [facility]. PT/OT and case management to see patient [...] 75 minutes. Charges/Coding Visit Charges Inpatient E&M: 81920 Init Hosp L3 04/14/23 0749 <Electronically signed [...] Boyer; Dr. Anuja Noel DO ~* Signed [facility] Work Phone: 1(181) 505-487903-02-2024 Discharge summary Author Marcos Hoffman [facility] April 14, 2023 7:48am Note Date/Time April 14, 2023 5:15 am [facility] Medical Records Department [address] [place] [address] Emergency Department Summary 04/14/23 MR#: [id number] Acct: [id number] Name: DONNA MARSH Rep #:[id number] : 1955 67 From: Marcos Hoffman DO PCP: ORESTES Cano Status:ADM IN Location: [place] [address] ADDENDUM by Marcos Hoffman DO on 04/14/23 [...] Hoffman DO> Cosigner Signature (if applicable): cc: TRAUMA COORDINATORJarad Boyer ~* Signed HPI History of Present Illness Chief Complaint: Nausea/Vomiting/Diarrhea Informant: patient and spouse/S.O. Narrative Narrative: Patient is a 67-year-old female with past medical history of hypertension hyperlipidemia diabetes chronic kidney disease and previous hip fracture requiring ORIF. Patient and spouse state that after the fracture and her hospital stay [facility] has been since approximately . They state that she is only been home for the last week or so and that there is been difficulty in having her continue the medications which she was receiving at the [facility]. Patient states that inthe last few hours she developed generalized abdominal discomfort with bouts of nausea and vomiting and overall sense of feeling unwell. She also states that is been approximate 24 hours since her last oxycodone use which she also reportsshe was taking daily at the [facility]. Otherwise she denies any fevers or chills or chest pain or shortness of breath. [facility] Medical History Anxiety Atrial fibrillation [...] medications since she is returned from the [facility]. Patient also reported it has been roughly [...] 88.6 H Lymph % (Auto) 8.2 L Alcorn % (Auto) 2.2 Eos % (Auto) 0.2 [...] Sl. Cloudy Urine pH 7.0 Ur Specific Bude 1.010 Urine Protein 500 H Urine Glucose [...] and inferior pubic rami fractures. Electronically Signed: Shartia Marcos MD at 4:55 EST , Management Discussion w/another healthcare provider: Hospitalist Discharge Plan Dx/Rx/DC Orders Clinical Impression: Urinary tract infection, Opioid withdrawal, Accelerated hypertension, CKD (chronic kidney disease), stage III, Type 2 diabetes mellitus Disposition Disposition: Acute Care Hospital [facility] What to do if you have Problems For any increased pain, shortness of breath, bleeding, nausea or vomiting, chestpain, or any unexpected problems, contact your Primary Care Provider. Call [facility] ([phone]) or report to the closest Emergency Room. Call 911 if necessary. 04/14/23 0639 <Electronically signed by Marcos Hoffman DO> Cosigner Signature (if applicable): CC: ORESTES Boyer ~ Signed [facility] Work Phone: 1(540) 574-770103-01-2024 NoteDocuments all printed, waiting for referral to be signed by Ty on Sunday and then I will fax everything back to [facility]03-01-2024 Telephone encounter Note* Telephone Encounter - Christiane Victoria - 04/13/2023 9:08 AM EST Documents all printed, waiting for referral to be signed by Ty on Sunday and then I will fax everything back to them [facility] [id number] Hospital Discharge instructions Additional Instructions Your workup shows a urinary tract infection and therefore take the Keflex/cephalexin as directed. Also your history and workup indicate that some of your symptoms are related to opioid withdrawal as you have not taken your oxycodone in the last 24 hours. Therefore please go back to taking it as you were given [facility] the [facility] and use Zofran for any nausea or vomiting sensation. If you have any further concerns or worsening of symptoms please [facility] Work Phone: 1(450) 809-699202-29-2024 Telephone encounter Note* Telephone Encounter - Danyelle Ewing - 04/12/2023 3:23 PM EST Name of caller: [facility] Contact phone number: [phone] Provider: Onofre/ Yifan Lozano Practice: Ortho Chief Complaint/Reason for Call: [facility] called stating they got thereferral for the pt, but they also require the most recent OV notes Has to be within the last 90 days), a written and signed order from the dr, the pt's medication list, and a demographic sheet. Theyneed it faxed to [phone]. Please advise. Best time of day caller can be reached: Any Patient advised that office/PCP has 24-48 business hours to return their call: No [facility] [id number] NoteAddended by: YIFAN LOZANO on: 04/12/2023 02:34 PM Modules accepted: [facility] History of Present illness Narrative* Nicola Adhikari MD - 04/10/2023 2:50 PM EST Subjective: Donna is approximatley 3 months post op from right Intertan for proximal femur fracture on 12/27/22.Overall pain is moderate. She denies new numbness or tingling since surgery. She denies other new complaints. Assistive device(s) currently used: walker and wheelchair. Review of Systems Objective: Ht 5' 4" (1.626 m) Wt 178 lb (80.7 kg) [...] M.D.04/10/2023 at 3:17 PM. documented in this [facility]02-27-2024 History of Present illness Narrative* Nicola Adhikari MD - 04/10/2023 2:50 PM EST Subjective: Donna is approximatley 3 months post op from right Intertan for proximal femur fracture on 12/27/22.Overall pain is moderate. She denies new numbness or tingling since surgery. She denies other new complaints. Assistive device(s) currently used: walker and wheelchair. Review of Systems Objective: Ht 5' 4" (1.626 m) Wt 178 lb (80.7 kg) [...] M.D.04/10/2023 at 3:17 PM. documented in this [facility]02-27-2024 Miscellaneous Notes* Addendum Note - Yifan Lozano PA-C - 04/10/2023 2:50 PM ESTAddended by: YIFAN LOZANO on: 04/12/2023 02:34 PM Modules accepted: Orders documented in this [facility]02-27-2024 Note* Addendum Note - Yifan Lozano PA-C - 04/10/2023 2:50 PM ESTAddended by: YIFAN LOZANO on: 04/12/2023 02:34 PM Modules accepted: Orders [facility] [id number] Note* Addendum Note - Yifan Lozano PA-C - 04/10/2023 2:50 PM ESTAddended by: YIFAN LOZANO on: 04/12/2023 02:34 PM Modules accepted: Orders [facility] [id number] Telephone encounter Note* Telephone Encounter - Christiane Victoria - 01/22/2023 11:40 AM EST Called Omar Beckford ([phone]) and spoke with Paula, patient's nurse, to pass along updated orders per Ty. Imaging due: 03/29/2023 [facility] [id number] Miscellaneous Notes* Telephone Encounter - Christiane Victoria - 01/22/2023 11:40 AM EST Called Omar Beckford ([phone]) and spoke with Paula patient's nurse, to [...] Victoria - 01/03/2023 1:35 PM EST Called Omar Beckford ([phone]) and spoke with Vanesa patient's nurse. Passed along ordersper Ty. She was agreeable with this plan of not bringing the patient into the office unless specifically requested. Imaging due: 01/10/23 * Telephone Encounter - Yifan Lozano PA-C - 01/02/2023 2:01 PM EST s/p Intertan nailing of right hip on 12/27. Discharged to [facility]. Will need 2v right femur 2 [...] Name of caller: Stephanie Contact phone number: [phone] Relationship to Patient: [facility] Provider: Dr. Adhikari Practice: Ortho Chief Complaint/Reason for Call: Please call facility with xr orders and PO orders. Thank you Best time of day caller can be reached: any Patient advised that office/PCP has 24-48 business hours to return their call: No documented in this [facility] [id number] Telephone encounter Note* Telephone Encounter - Yifan Lozano PA-C - 01/19/2023 2:10 PM EST Films reviewed. Continue WBAT RLE. Continue hip and knee ROM. Will need repeat 2v right femur at the 3 month post op john. Workboard Phone: [phone] Miscellaneous Notes* Telephone Encounter - Yifan Lozano PA-C - 01/19/2023 2:10 PM EST Films reviewed. Continue WBAT RLE. Continue hip and knee ROM. Will need repeat 2v right femur at the 3 month post op john. * Telephone Encounter - RT Deep Keenan) - 01/19/2023 12:56 PM EST Images from the original note were not included. Xrays of right femur taken on 01/10/23: * Telephone Encounter - Christiane Victoria - 01/03/2023 1:35 PM EST Called [facility] ([phone]) and spoke with Vanesa, patient's nurse. Passed along ordersper Ty. She was agreeable with this plan of not bringing the patient into the office unless specifically requested. Imaging due: 01/10/23 * Telephone Encounter - Yifan Lozano PA-C - 01/02/2023 2:01 PM EST s/p Intertan nailing of right hip on 12/27. Discharged to [facility]. Will need 2v right femur 2 [...] Name of caller: Stephanie Contact phone number: [phone] Relationship to Patient: [facility] Provider: Dr. Adhikari Practice: Ortho Chief Complaint/Reason for Call: Please call facility with xr orders and PO orders. Thank you Best time of day caller can be reached: any Patient advised that office/PCP has 24-48 business hours to return their call: No documented in this encounterSKettering Health [id number] Telephone encounter Note* Telephone Encounter - RT Deep Keenan) - 01/19/2023 12:56 PM EST Images from the original note were not included. Xrays of right femur taken on 01/10/23: [facility] HospitalGbvgbz04-15-2996 Telephone encounter Note* Telephone Encounter - Christiane Victoria - 01/03/2023 1:35 PM EST Called [facility] ([phone]) and spoke with Vanesa, patient's nurse. Passed along ordersper Ty. She was agreeable with this plan of not bringing the patient into the office unless specifically requested. Imaging due: 01/10/23 [facility]11-21-2023 Telephone encounter Note* Telephone Encounter - Yifna Lozano PA-C - 01/02/2023 2:01 PM EST s/p Intertan nailing of right hip on 12/27. Discharged to [facility]. Will need 2v right femur 2 weeks postop. Okay for facility films. Sutures/yasmeen can be removed atthat time as long as incisions are healing well. If there are any concerns regarding incisions, please have them send pictures for review prior to removal and wait for additional instructions. [place] [id number] Telephone encounter Note* Telephone Encounter - Paula Domínguez - 01/02/2023 1:53 PM EST Name of caller: Stephanie Contact phone number: [phone] Relationship to Patient: [facility] Provider: Dr. Adhikari Practice: Ortho Chief Complaint/Reason for Call: Please call facility with xr orders and PO orders. Thank you Best time of day caller can be reached: any Patient advised that office/PCP has 24-48 business hours to return their call: No [facility]11-20-2023 [facility]11-20-2023 Nurse Note* Nelson Armas RN - 01/01/2023 9:58 PM EST Patient picked up 2154 transported to [facility]. IV L forearm and R forearm removed. * Laz Beasley RN - 12/23/2022 10:04 PM EST Patient arrived from OR, Dr. Rodriguez in to speak with the patient regarding pelvic embolization, consent obtained. Patient was placed supine on exam table prepped and draped in sterile fashion. Telemetry monitors placed. Patient tolerated procedure well. Transfer to T2 * Laz Beasley RN - 12/23/2022 9:25 PM EST Pt in IR, intubated, sedated, T2 Rns present. documented in this [facility]11-20-2023 Miscellaneous Notes* Care Plan - Denise Durham [...] injury from restraints (Restraint for Interference with Patron Attendant) Outcome: Completed Goal: Free from restraint(s) (Restraint for Interference with Patron Attendant) Outcome: Completed Problem: Problem Interventions Goal: Dietary Supplements Outcome: Completed Goal: Promote nutritional intake Outcome: Completed Goal: Assess Nutritional Intake Outcome: Completed * Care Coordination - Unknown Case Management - 01/01/2023 3:14 PM EST Patient Choice Patient Name: DONNA MARSH Date of : 1955 All Providers Sent Referral Name: Bea Paulinooster Phone: [phone] Address: [address] [place] [address] Name: [facility] Address: [address] [place] [address] Name: [facility] Phone: [phone] Address: [address] [place] [address] * Care Coordination - Asim Santos RN - 01/01/2023 2:44 PM EST Auth received for admission to [facility]. Transport set for 700pm. Call made to frandy Ge , no answer left message notifying of pending dc and vegetable picker time. * Care Coordination - Asim Santos RN - 01/01/2023 1:34 PM EST [facility] Accepted patient for admission. Awaiting insurance approval. Updated Chro of change in facility. 7000 completed in HENs. * Care Coordination - Asim Santos RN - 01/01/2023 11:55 AM EST [facility] is facility of choice. Referral sent awaiting to see if bed available. * Care Coordination - Asim Santos RN - 01/01/2023 10:46 AM EST Notified that [facility] is out of network. Call made to daughter Joo, left message requesting return call, will discuss [...] injury from restraints (Restraint for Interference with Patron Attendant) Outcome: Progressing Goal: Free from restraint(s) (Restraint for Interference with Patron Attendant) Outcome: Progressing * Care Coordination - Terrie Scott RN - 12/31/2022 9:25 AM EST Images from the original note were not included. CARE COORDINATION DAILY NOTE/UPDATE Medical Plan: admitted s/p fall off scooter. S/P Intertan nailing of right hip on 12/27. PT/OT rec SNF. Discharge Plan: [facility] Discharge Barriers: pending AUTH, medical clearance and completion of discharge orders This TCC was tasked to follow this patient through the weekend assisting with discharge planning. Chart and Careport reviewed. Placed call to [facility] (7) then (1). Per [facility] Rajwinder- pending and in clinical review. [...] La Rosa RN 12/25/2022 8:29 AM 12/25/2022 Etseban Hawley MD 12/23/2022 10:36 PM 12/25/2022 Esteban [...] injury from restraints (Restraint for Interference with Patron Attendant) Outcome: Progressing Goal: Free from restraint(s) (Restraint for Interference with Patron Attendant) Outcome: Progressing * Care Coordination - Terrie [...] at noon. I Called Kaya at facility [phone] left message form admissions on secure voicemail, called [phone] andspoke with RN- they were misinformed, patients [...] injury from restraints (Restraint for Interference with Patron Attendant) Outcome: Progressing Goal: Free from restraint(s) (Restraint for Interference with Patron Attendant) Outcome: Progressing * Care Coordination - Asim Santos RN - 12/29/2022 12:41 PM EST [facility]. Task sent for auth to be submitted. * Care Coordination - Asim Santos RN - 12/29/2022 11:18 AM EST Message left for [facility] admissions requesting return call to check on status of referral. * Care Coordination - Asim Santos RN - 12/29/2022 10:09 AM EST Images from the original note were not included. Care Management Progress Note Met with patient at bedside, discussed alternate SNF options, agreeable to referral to [facility].Referral sent, awaiting response. Will need insurance approval [...] RN - 12/29/2022 5:[address] [facility] has no bed available unable to accept. [...] recommendations verified that patient has been to [facility] and is willing to return when [...] Adhikari MD - 12/27/2022 11:59 AM EST [facility] MAIN OR [address] [facility] [address] Dept: [phone] Loc: [phone] Operative Report Patient Name: Pal Padgett Date of : 1955 Date of Surgery: 12/27/22 Pre-operative diagnosis: Right intertrochanteric femur fracture Post-operative diagnosis: Same Procedure(s): Intertan nailing of right intertrochanteric femur fracture Surgeon: Nicola Adhikari M.D. Twister Tender Paper(s): Nino Moffett M.D. and Debi Lamb M.D. [...] as well as medical complications such as IL, stroke, PE, DVT, and even . Patient [...] was impacted using the depth tower to fire extinguisher installer the depth of placement. The proximal femurwas prepared for the lag and worm screws with excellent compression achieved. The distal screw was placed using perfect tejon technique. Final films were obtained and saved. [...] AM EST Date: 12/23/2022 - 12/27/2022 Location: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 Amaya Penn APRN - ROMELIA - 10/11/2022 9:56 AM EDT Images from the original note were not included. [facility] Wound Care Progress Note Donna [...] ortho office yesterday, she was sent to [place] ED for further evaluation, imaging, and treatment. [...] by mouth. ergocalciferol (Vitamin D-2) 1.25 MG (34897 UT) capsule Take by mouth. fexofenadine (Roc) [...] (Temporal) Resp 14 Ht 1.626 m (5' 4") Wt 65.6 kg (144 lb 10 oz) [...] prep then leave PAULINO daily and PRN Umbilicus: Abrasion - Apply skin prep. Leave PAULINO. Apply daily and PRN. Nutritional support Wound Care to follow Recommend to follow up at [facility] wound care center after hospital discharge. Any questions or concerns please secure chat "[facility] wound/ostomy". Thank you for the consult! I personally [...] from the original note were not included. [facility] [address] [place] [id number] Dept: [phone] Adult Orthopaedic Service Patient Name: Donna Marsh [...] surgical intervention 25% WB LLE in KI at all times, please check skin [...] MD PGY-4 Orthopedic Surgery Pager [phone] * Luis Causey MD - 10/10/2022 7:50 PM EDT Orthopedic Surgery Progress Notes: No plans for further surgical intervention 25% WB LLE in KI at all times, please check skin [...] in July. She was initially admitted to [facility] for evaluation of possible hardware failure. Patient [...] On: Kcal/kg Weight Used for Energy Requirements: [place] Weight for Energy Calculation (kg): 54.5 kg Total Energy Requirements (kcals/day): 1363-1635kcals/day Weight Used for Protein Requirements: [place] Weight in Kg Used for Protein Requirements: [...] Labs 10/09/22 0729 10/09/22 1210 10/09/22 1654 10/09/22200210/10/22 0805 10/10/22 1156 POCGLU 178* 248* 229* 253* 213* 159* Lab Results Component Value Date HGBA1C 5.3 10/04/2022 Lab Results Component Value Date VITD25 68 10/03/2022 No results found for: THIAMINE, FOLATE, ZINC Current Nutrition Therapies: NPO diet Current Oral Intake Average Meal Intake: 76-100% Average Supplements Intake: 76-100% Anthropometric Measures: Height: 162.6 cm (5' 4") Current Body Weight: 65.8 kg (145 lb) (stated 10/03, attempted to obtain bedscale however scale reading 'err3') Weight Source: Stated Admission Body Weight: 65.8 kg (145 lb) (stated 10/03) Usual Body Weight: 79.4 kg (175 lb) (pt states she was 175# 'on August 05 the day of my fall', there is no weight history in chart for review) % Weight Change (Calculated): -17.1 [place] Body Weight (lbs) (Calculated): 120 lbs [place] Body Weight (Kg) (Calculated): 55 kg % [place] Body Weight (Calculated): 120.8 % BMI (kg/m2) [...] current diet Laura Norton MS, RD Contact: [phone] or [employer] chat * Gayle Dunlap MD - 10/10/2022 1:45 PM EDT Images from the original note were not included. Hospitalist Progress Note 10/10/2022 Subjective: Admit Date: 10/03/2022 PCP: CICI CALDERON Room#: OR/NONE Interval History: Donna is a 66 year old female, who presents to the ED with left hip pain s/p ORIF in July. She was initially admitted to [facility] for evaluation of possible hardware failure. Patient [...] (98.6 F) (Temporal) Resp 16 Ht 5' 4" (1.626 m) Wt 144 lb 10 oz [...] ml LABS: CBC: Recent Labs 10/08/22 0012 10/09/223 10/10/2231 WBC 12.9* 13.7* 10.9* RBC 3.87 3.60* 3.78* HGB 11.7 10.7* 11.3* HCT 35.9 32.3* 34.5* MCV 92.8 89.8 91.2 RDW 14.7* 14.4 14.2 PLT 353 329 302 BMP: Recent Labs 10/08/22 0012 10/09/223 10/10/2231 NA 136 134* 135 K 4.9 4.8 [...] Emergency Contact: Joo Bernstein Relation: None Gayle Dunlap MD Division of Hospitalist Medicine [facility] * Senia Griffith MD - 10/10/2022 7:06 AM EDT Department of Surgery Vascular Daily Progress Note PATIENT NAME: Donna Marsh : 1955 ATTENDING PHYSICIAN: Gayle Dunlap MD ADMIT DATE: 10/03/2022 TODAY'S DATE: 10/10/2022 SUBJECTIVE NAOE VSS Pain controlled Daughter in room Ready for surgery today OBJECTIVE VITALS: BP 101/65 Pulse 94 Temp (!) 35.8 C (96.4 F) (Temporal) Resp 18 Ht 1.626 m (5' 4") Wt 65.6 kg (144 lb 10 oz) [...] No intake/output data recorded. Data Recent Labs 10/08/221110/09/2215210/10/2231 WBC 12.9* 13.7* 10.9* HGB 11.7 10.7* 11.3* HCT 35.9 32.3* 34.5* PLT 353 329 302 Recent Labs 10/08/221110/09/2215210/10/2231 NA 136 134* 135 K 4.9 4.8 [...] from the original note were not included. [facility] [address] [place] [id number] Dept: [phone] Adult Orthopaedic Service Patient Name: Donna Marsh [...] Time Intake/Output Summary (Last 24 hours) at 10/10/2022 0623 Last data filed at 10/10/2022 0600 Gross [...] clearance in case of OR, page ortho decision unit rn with clearance status -Orthopaedic surgery will follow. Please page decision unit rn orthopaedic resident for questions or concerns. Home Last MD PGY-2, Orthopaedic Surgery 10/10/2022 6:27 AM * Gayle Dunlap MD - 10/09/2022 2:37 PM EDT Images from the original note were not included. Hospitalist Progress Note 10/09/2022 Subjective: Admit Date: 10/03/2022 PCP: CICI CALDERON Room#: H-6127/H-6127 A Interval History: Donna is a 66 year old female, who presents to the ED with left hip pain s/p ORIF in July. She was initially admitted to [facility] for evaluation of possible hardware failure. Patient [...] (98.4 F) (Temporal) Resp 16 Ht 5' 4" (1.626 m) Wt 144 lb 10 oz [...] Contact Information Primary Emergency Contact: Joo Bernstein [place] Relation: None Gayle Dunlap MD Division of Hospitalist Medicine [facility] * Alvarez Guerrero MD - 10/09/2022 1:03 PM EDT Department of Surgery Vascular Daily Progress Note PATIENT NAME: Donna Marsh : 1955 ATTENDING PHYSICIAN: Gayle Dunlap MD ADMIT DATE: 10/03/2022 TODAY'S DATE: 10/09/2022 SUBJECTIVE NAOE VSS Pain controlled Ready for surgery Reports she has not ambulated since July OBJECTIVE VITALS: BP (!) 135/108 (BP Location: Right arm, Patient Position: Lying) Pulse 89 Temp 36.9 C (98.4 F) (Temporal) Resp 16 Ht 5' 4" (1.626 m) Wt 144 lb 10 oz [...] 1:03 PM * Amaya Penn APRN - OIL AND GAS FIELD TECHNICIAN - 10/09/2022 12:56 PM EDT Images from the original note were not included. [facility] Wound Care Progress Note Donna [...] ortho office yesterday, she was sent to [place] ED for further evaluation, imaging, and treatment. [...] by mouth. ergocalciferol (Vitamin D-2) 1.25 MG (85420 UT) capsule Take by mouth. fexofenadine (Roc) [...] (Temporal) Resp 16 Ht 1.626 m (5' 4") Wt 65.6 kg (144 lb 10 oz) [...] ulcer - Apply skin prep then leave TAXIMETER REPAIRER daily and PRN Nutritional support Wound Care to follow Recommend to follow up at [facility] wound care center after hospital discharge. Any questions or concerns please secure chat "[facility] wound/ostomy". Thank you for the consult! I personally [...] independent evaluation of this patient. * Gayle Dunlap MD - 10/08/2022 1:23 PM EDT Images from the original note were not included. Hospitalist Progress Note 10/08/2022 Subjective: Admit Date: 10/03/2022 PCP: CICI CALDERON Room#: H-6127/H-6127 A Interval History: Donna is a 66 year old female, who presents to the ED with left hip pain s/p ORIF in July. She was initially admitted to [facility] for evaluation of possible hardware failure. Patient [...] (97.5 F) (Temporal) Resp 16 Ht 5' 4" (1.626 m) Wt 145 lb (65.8 kg) [...] 4.4 4.9 CL 103 103 102 CO2 23 BUN 27* 26* 25* CREATININE 0.72 0.78 [...] Emergency Contact: Joo Bernstein Relation: None Gayle Dunlap MD Division of Hospitalist Medicine [facility] * Gayle Dunlap MD - 10/07/2022 1:22 PM EDT Images from the original note were not included. Hospitalist Progress Note 10/07/2022 Subjective: Admit Date: 10/03/2022 PCP: CICI CALDERON Room#: H-6127/H-6127 A Interval History: Donna is a 66 year old female, who presents to the ED with left hip pain s/p ORIF in July. She was initially admitted to [facility] for evaluation of possible hardware failure. Patient [...] (97.5 F) (Temporal) Resp 18 Ht 5' 4" (1.626 m) Wt145 lb (65.8 kg) SpO2 [...] Contact Information Primary Emergency Contact: Joo Bernstein [place] Relation: None Gayle Dunlap MD Division of Hospitalist Medicine [facility] * Gayle Dunlap MD - 10/06/2022 1:59 PM EDT Images from the original note were not included. Hospitalist Progress Note 10/06/2022 Subjective: Admit Date: 10/03/2022 PCP: CICI CALDERON Room#: H-6127/H-6127 A Interval History: Donna is a 66 year old female, who presents to the ED with left hip pain s/p ORIF in July. She was initially admitted to [facility] for evaluation of possible hardware failure. Patient [...] (97.6 F) (Temporal) Resp 20 Ht 5' 4" (1.626 m) Wt 145 lb (65.8 kg) [...] Extended Emergency Contact Information Primary Emergency Contact: Cutshaver,Joo Relation: None Gayle Dunlap MD Division of Hospitalist Medicine [facility] * Lydia Bradshaw, RD - 10/05/2022 2:11 PM EDT Nutrition Assessment Type and Reason for Visit: Initial, Positive Nutrition Screen (weight loss, decreased appetite) Nutrition Recommendations/Plan: PATIENT MEETS ASPEN/AND GUIDELINES FOR MODERATE MALNUTRITION IN THE CONTEXT OF CHRONIC ILLNESS. 1. Pt is currently ordered a Regular Diet which is appropriate. --> plans for NPO at [facility] on 10/10 for planned OR. 2. Will [...] (temporalis) Fluid Accumulation: No significant fluid accumulation Milk Drying Machine Operator Strength: Not Performed Nutrition Assessment: pt with PMH significant for AFib, bipolar, dementia, HTN, CAD, DM2, HLD and neuropathy who presented to [facility] ED on 10/03/22 as a referral from [facility], in late July pt suffered a [...] process, pt was ultimately discharged to a [facility], pt followed up with Oncology who ordered [...] on 10/10/22 pending multispecialty coordination (NPO at [facility] orders placed by Ortho), pt currently with [...] On: Kcal/kg Weight Used for Energy Requirements: [place] Weight for Energy Calculation (kg): 54.5 kg Total Energy Requirements (kcals/day): 1363-1635kcals/day Weight Used for Protein Requirements: [place] Weight in Kg Used for Protein Requirements: 54.5 kg Estimated Total Protein (g/day): 55-65gm pro/day Estimated Daily Total Fluid (ml/day): per MD recommendations Nutrition Related Findings: Raji = 16, skin intact, missing teeth, active bowel sounds, BM 10/04, has been at [facility], pt states appetite is a little [...] initiation) Anthropometric Measures: Height: 162.6 cm (5' 4") Current Body Weight: 65.8 kg (145 lb) (stated 10/03, attempted to obtain bedscale however scale reading 'err3') Weight Source: Stated Admission Body Weight: 65.8 kg (145 lb) (stated 10/03) Usual Body Weight: 79.4 kg (175 lb) (pt states she was 175# 'on August 05 the day of my fall', there is no weight history in chart for review) % Weight Change (Calculated): -17.1 [place] Body Weight (lbs) (Calculated): 120 lbs [place] Body Weight (Kg) (Calculated): 55 kg % [place] Body Weight (Calculated): 120.8 % BMI (kg/m2) [...] determine Lydia Bradshaw RD Contact: available via Home Inventory S[pecialists or *[phone] * Cece Alcala PA-C - 10/05/2022 1:57 PM EDT Orthopedic Surgery Progress Note Left knee xray ordered and subsequently obtained. My interpretation is as follows: Left knee xray (10/05/22): no acute fracture or dislocation. Generalized vascular calcification Orthopaedic surgery will follow. Please page decision unit rn orthopaedic resident for questions or concerns. * [...] in July. She was initially admitted to [facility] for evaluation of possible hardware failure. Patient [...] (98.3 F) (Temporal) Resp 18 Ht 5' 4" (1.626 m) Wt 145 lb (65.8 kg) [...] ending 10/05/22 1340 LABS: CBC: Recent Labs 10/03/22 1826 10/04/22 0534 10/05/22 0210 WBC 11.0* 12.0* 12.1* RBC 3.94 4.10 3.97 HGB 11.9 12.2 12.0 HCT 35.7 37.2 36.6 MCV 90.7 90.7 92.2 RDW 14.7* 14.6* 14.7* PLT 350 392 354 BMP: Recent Labs 10/03/22 1826 10/03/22 1907 10/04/22 0534 10/05/22 0210 NA 138 -- 137 138 K 6.0* 4.7 4.0 5.1 CL 104 -- 104 102 CO2 26 -- 21* 27 BUN 36* -- 28* 27* CREATININE 0.84 -- 0.69 0.88 GLUCOSE 143* -- 88 95 CALCIUM 9.6 -- 9.2 9.2 ANIONGAP 8 -- 12 9 LIVER PROFILE: Recent Labs 10/04/22 0534 AST [...] Alexis Coles MD Division of Hospitalist Medicine [facility] * Cece Alcala PA-C - 10/05/2022 10:08 AM EDT Images from the original note were not included. [facility] TELEMETRY [address] [place] [address] Dept: [phone] Loc: [phone] PATIENT: Donna Marsh DATE OF : 1955 ACCT: [id number] PCP: CICI CALDERON DATE OF ADMISSION: 10/03/2022 DATE OF SERVICE: Pt seen/examined on 10/05/2022 Subjective CHIEF COMPLAINT: status post left cephalomedullary nail for peritrochanteric hip fracture on 08/06/2022 with interval complete hardware failure and fracture collapse. HPI: Patient is seen resting comfortably in bed. Patient was transferred from [place] overnight. She reports that the pain in [...] Historical Provider, ergocalciferol (Vitamin D-2) 1.25 MG (09961 UT) capsule Take by mouth. Historical Provider, [...] Petra Rivers MD, 3.125 mg at 10/05/22 09 dextrose 5 % infusion, 100 mL/hr, IntraVENous, [...] clearance in case of OR, page ortho decision unit rn with clearance status -Orthopaedic surgery will follow. Please page decision unit rn orthopaedic resident for questions or concerns. * Petra Rivers MD - 10/04/2022 4:43 PM EDT Discussed patient care with Orthopedic Surgery, Patient to be transferred to [facility] for higher level of surgical care. Dr. Sofia Sena from [facility] will accept transfer. Petra Rivers MD Division of Hospitalist Medicine [facility] * Liset Zhou MD - 10/04/2022 4:40 PM EDT Brief Orthopaedic Surgery Progress Note Spoke with Dr. Petra Rivers regarding pending transfer of patient to [facility]. At this time, patient's left hip requires [...] surgery. Ortho to follow for transfer to [facility]. Please reach out with questions or concerns. Liset Zhou MD PGY-1, Orthopaedic Surgery 10/04/22 4:43 PM * Luis Causey MD - 10/04/2022 4:20 PM EDT Orthopedic Surgery Progress Note: Discussed patient care with General Surgery and Vascular team due to the proximity of the iliac artery near the tip of the screw. Plan will be to transfer patient to [facility] for further management. Will plan to due to the removal of hardware with the vascular surgery team present. Luis Causey MD PGY-4 Orthopedic Surgery Pager [phone] * Petra Rivers MD - 10/04/2022 7:22 AM EDT Hospitalist Progress Note 10/04/2022 [phone]: Please secure chat me on patient care issues. [phone]: Please secure chat [facility] Hospitalist for any issues. Subjective: Admit Date: 10/03/2022 PCP: CICI CALDERON Room#: CHIEF COMPLAINT: left hip pain Interval History: No overnight issues. Continues to have left sided hip pain, and endorsing some nausea. Has not ate since last night - does have some GERD. Denies chest pain, sob, abdominal pain, vomiting, diarrhea, constipation, fevers, or chills. NPO diet without enteral medications @[id number]@ 24HR INTAKE/OUTPUT: No intake or output data in the 24 hours ending 10/04/22 0722 Past Medical History: Past Medical History: Diagnosis Date Bipolar 1 disorder (HCC) Diabetes mellitus (HCC) Hyperlipidemia Hypertension Neuropathy LABS: CBC: Recent Labs 10/03/22182510/04/22 0534 WBC 11.0* 12.0* RBC 3.94 4.10 HGB 11.9 12.2 HCT 35.7 37.2 MCV 90.7 90.7 RDW 14.7* 14.6* PLT 350 392 BMP: Recent Labs 10/03/22182510/03/22 19010/04/22 0534 NA 138 -- 137 K 6.0* [...] (97.8 F) (Oral) Resp 16 Ht 5' 4" (1.626 m) Wt 145 lb (65.8 kg) [...] Petra Rivers MD Division of Hospitalist Medicine [facility] PAGER: Epic chat * Debi Lamb MD - 10/04/2022 [...] evaluation in the AM. documented in this [facility]09-03-2023 Nurse Note* Omar Zarco RN - 10/15/2022 1:13 PM EDT Report given to technical staff engineer at [facility]. Pt waiting on transport. * Angelita Castañeda LPN - 10/04/2022 5:41 PM EDT Report called to Omar VILLASENOR at [facility]. Patient to be transferred via [facility] at 7pm [id number] on H6. documented in this [facility]09-03-2023 Miscellaneous Notes* Care Coordination - Unknown Case Management - 10/15/2022 11:43 AM EDT Patient Choice Patient Name: DONNA MARSH Date of : 1955 All Providers Sent Referral Name: [facility] Phone: [phone] Address: [address] [place] [address] * Care Coordination - Terrie Scott RN - 10/15/2022 11:34 AM EDT Images from the original note were not included. CARE COORDINATION DAILY NOTE/UPDATE Medical Plan: s/p Left Hip removal of hardware with conversion to COSTA on 10/10. Drain removed and Ancef discontinued 10/14. PT/OT rec SNF. Active discharge order. Discharge Plan: [facility] good through 10/17 Discharge Barriers: none This [facility] was tasked to follow this patient through the weekend assisting with discharge planning. Gustine Paula asked to schedule transport- time set for 1400. Omar VILLASENOR updated on plan and asked to update patient. Discharge documents including Discharge Summary, After Visit Summary, MAR, LABS, and Vitals were uploaded into [facility] for facility review. Facility made aware of transport time. Discharge Milestones and Delays Expected Date/Time: 10/15/2022 Afternoon Disposition: Retirement Facility Transport status: No current request Discharge [...] Rowan RN 10/11/2022 8:14 AM 10/13/2022 CARMEN Jsohi 10/10/2022 9:20 AM 10/13/2022 Rosalba Elizalde RN [...] discontinued 10/14. PT/OT rec SNF. Discharge Plan: [facility] through 10/17 Discharge Barriers: pending [...] RN 10/11/2022 8:14 AM 10/13/2022 Nikkie Tavarez, FLIGHT SURVEYOR 10/10/2022 9:20 AM 10/13/2022 Rosalba Elizalde RN 10/09/2022 8:24 AM 10/12/2022 Rosalba Elizalde RN 10/06/2022 8:36 AM 10/11/2022 Nikkie Tavarez, FLIGHT SURVEYOR 10/05/2022 9:23 AM 10/06/2022 Rudy Quintana PA-C [...] OT rec SNF. Discharge plan return to [facility]. Auth obtained. Pt with drain in [...] RN 10/11/2022 8:14 AM 10/13/2022 Nikkie Tavarez, FLIGHT SURVEYOR 10/10/2022 9:20 AM 10/13/2022 Rosalba Elizalde RN 10/09/2022 8:24 AM 10/12/2022 Rosalba Elizalde RN 10/06/2022 8:36 AM 10/11/2022 Nikkie Tavarez, FLIGHT SURVEYOR 10/05/2022 9:23 AM 10/06/2022 Rudy Quintana PA-C 10/04/2022 2:43 PM 10/06/2022 Rudy Quintana PA-C 10/03/2022 7:11 PM Length of Stay (Days): 10 GMLOS: 1.7 * Care Coordination - YENNY Lyons - 10/12/2022 12:34 PM EDT SW coverage for today. Plan is for pt to return to [facility] when stable. Ambulance form completed and placed on pt's chart. * Care Coordination - Rosalba Elizalde RN - 10/12/2022 10:47 AM EDT Images from the original note were not included. Care Management Progress Note Patient remains on H6 s/p L CMS on 08/06, removal of hardware with conversion to COSTA. PT recommending SNF and OT evaluation pending. Discharge plan return to [facility], awaiting OT evaluation to start insurance [...] discharge instructions Outcome: Progressing Flowsheets (Taken 10/12/2022 0917) Patient/family/caregiver demonstrates understanding of disease process, treatment [...] with recommendation of snf. Pt is from [facility] with plan for return. We will [...] Maintained or Improved Outcome: Progressing Flowsheets (Taken 10/11/2022 08) Skin integrity is maintained or improved: Assess and monitor skin integrity Collaborate with interdisciplinary team and initiate plans and interventions as needed Avoid shearing * Perioperative Nursing Note - Amee Srinivasan RN - 10/10/2022 9:36 PM EDT Junior Recruiter at bedside to block pt * Op Note - Berry Mares MD - 10/10/2022 3:13 PM EDT Images from the original note were not included. [facility] MAIN OR [address] [facility] [facility] [address] Dept: [phone] Loc: [phone] Operative Report Patient Name: Donna Marsh Date [...] well without anesthetic or surgical/operative complications. COMPONENTS: [employer]hew Redapt acetabular component size 50 [...] was seen and thoroughly evaluated by a coroner/medical examiner preoperatively and was optimized for surgical intervention. [...] the pelvis held securely via the Hip Milk Drying Machine Operator positioner. A pre- scrub was completed with alcohol solution. The hip was then prepped with Chloroprep solution and draped in standard sterile fashion. A surgical time out was called and the correct patient, correct extremity, correct procedure, operating room team and personnel, and that IV antibiotics had been appropriately given and documented. In addition, it was confirmed that the implant vendor business banking representative and appropriate implants were present and [...] gluteus minimus muscle was retracted with a Midland retractor, exposing the posterosuperior hip capsule. The [...] the lag screw. Then, with a vice order builder loader the lag screw was fully removed. No [...] hip was then carefully reduced. Leg length bahai appeared satisfactory based on the intraoperative landmarks [...] PM EDT Date: 10/03/2022 - 10/10/2022 Location: [facility] OR Name: Donna Marsh, : 1955, Diagnosis Pre-op Diagnosis * Failed orthopedic implant, initial encounter ([facility]) [T84.498A] Post-op Diagnosis * Failed orthopedic implant, initial encounter ([facility]) [T84.498A] Procedures LEFT CONVERSION TOTAL HIP REPLACEMENT WITH REMOVAL OF HARDWARE - WV ARTHRP ACETBLR/PROX FEM PROSTC AGRFT/ALGRFT Surgeons * Berry Mares - Primary Procedure Summary Anesthesia: General ASA: III Estimated Blood Loss: 600 mL Drains: Closed/Suction Drain Left Accordion 10 Fr. (Active) Urethral Catheter Non-latex 16 Fr. (Active) Female External Urinary Catheter (Active) External Catheter Status Changed 10/09/22 0039 Securement Method Adhesive device 10/09/22 0039 Output (mL) 1700 mL 10/10/22 0600 Marj-Care Soap and water 10/09/22 0039 Specimens ID Source Type Tests Collected By Collected At Frozen? Priority Lab ID 1 Leg, Left Tissue TISSUE EXAM Berry Mares MD 10/10/22 1720 No Routine Description: FEMORAL HEAD A Hip, Left Tissue AEROBIC AND ANAEROBIC CULTURE WITH STAIN Berry Mares MD 10/10/22 1637 [id number], [id number] Description: LEFT HIP CULTURE B Hip, Left Tissue AEROBIC AND ANAEROBIC CULTURE WITH STAIN Berry Mares MD 10/10/22 1648 Routine [id number], [id number] Description: LEFT HIP CULTURE C Hip, Left Tissue AEROBIC AND ANAEROBIC CULTURE WITH STAIN Berry Mares MD 10/10/22 1750 Routine [id number], [id number] Description: LEFT HIP TISSUE CULTURE Implants Type Name Action Serial No. [employer] Bone FILLER BN VOID 5ML 1.7-10MM - [id number] - [id number] Implanted [id number] Screw REDAPT 25MM LOCKING SCREW Implanted Screw REDAPT 20MM LOCKING SCREW Implanted Screw SCREW ACET 6.5X25MM SPHERE - [id number] Implanted Screw SCREW ACET 6.5X40MM SPHERE - [id number] Implanted Implant 50MM OD REDAPT MODULAR SHELL Implanted Screw REDAPT 20MM LOCKING SCREW Implanted Implant OXINIUM DH DUAL MOBILITY LINER Implanted Orthopedic Implant STEM DISTAL JOSH SPL [id number] - [id number] Implanted Internal and External Fixation CABLE ORTH COCR 2MM 75MM TROCH - [id number] Implanted Orthopedic Implant BODY PROX JOSH C STD 60MM - [id number] Implanted Joint Knee HEAD FEM BIOLOXD OPTION 28MM - [id number] Implanted Implant TAPER SLEEVE Implanted Orthopedic Implant DUAL MOBILITY INSERT Implanted Staff: Commercial Assistant: Meron Madden RN Relief Commercial Assistant: Zakia Joya RN; Ronnie Cooley RN; Monica Willard RN Relief Scrub: Anuja Ríos RN; Jen Peralta Scrub Person: Branden Barton Findings: See full op report Complications: None; patient tolerated the procedure well. Specimens Collected: Order Name Source Comment Collection Info Order Time AEROBIC AND ANAEROBIC CULTURE WITH STAIN Hip, Left Pre-op diagnosis: Failed orthopedic implant, initial encounter ([facility]) [T84.498A] Collected By: Berry Mares MD 10/10/2022 4:38 PM AEROBIC AND ANAEROBIC CULTURE WITH STAIN Hip, Left Pre-op diagnosis: Failed orthopedic implant, initial encounter ([facility]) [T84.498A] Collected By: Berry Mares MD 10/10/2022 4:59 PM AEROBIC AND ANAEROBIC CULTURE WITH STAIN Hip, Left Pre-op diagnosis: Failed orthopedic implant, initial encounter ([facility]) [T84.498A] Collected By: Berry [...] Pre-op diagnosis: Failed orthopedic implant, initial encounter ([facility]) [T84.498A] Collected By: Berry [...] PT/OT when appropriate. Patient is from [facility] as a bed hold, however will need [...] PT/OT when appropriate. Patient is from [facility] and will need a precert to [...] and revision COSTA. Patient is from [facility] [place] and will need a precert to return. [...] 10/05/2022 8:44 AM EDT Referral placed to [facility] via Careport per TCC request. Await review and response regarding ability to accept. TCC notified. * Care Coordination - Holli Bhagat RN - 10/04/2022 12:54 PM EDT Care Managment Initial Assessment Date: 10/04/2022 Patient Name: Donna Marsh : 1955 Patient Information Source of Information: Patient Cognition/Language: WFL - Within Functional Limits Permission given to speak with patient business banking representative/caregiver as indicated: Confirmation of Payer with patient/family: Yes Payer Name: Leandra BUTTERFIELD : No Confirmation of Primary Care Physician: Confirmed PCP Name: Dr Cici Calderon Seen in last 2 years?: Yes Primary Caregiver: Self If assistance needed, confirmed caregiver ready, willing and able to care for patient at discharge:Yes Confirmed with: Sherry elkins [place] staff via CarePort Living Arrangements Current Residence: Number of Floors Number of Entry Steps: Bed/Bath Levels: Facility: Nursing Facility Skilled Facility Name: [facility] Plan to Return: Yes Lives with: (Currently at [facility]) Support Systems: Spouse/significant other, Children, Family members, Friends/neighbors (SNF staff and residents) Activities of Daily Living Ambulation: Assistance Bathing/Dressing: Assistance Elimination/Continence/Toileting: Assistance Feeding: Independent Who Assists with Activities of Daily Living: Sherry elkins [place] staff Instrumental Activities of Daily Living Prescription Coverage: Yes Pharmacy Used: [facility] Medication Management: ([facility] nurses manage meds) Transportation/Shopping: Independent Transportation Mode: Car Needs Assistance with Transportation at Discharge: Yes (FLIGHT SURVEYOR will have to set up return transport) Meal Preparation: Assistance Provider Meal Prep Assistance Provider Name: [facility] [place] staff Laundry/Cleaning: Assistance Provider Laundry/Cleaning Assistance Provider Name: Sherry small [place] staff Finances/Bill Paying: Assistance Provider Finances/Bill Payer Assistance Provider Name: Eduardo Communication: Independent Types of Care Services/Equipment Utilized Care Services: Dialysis Type: Durable Medical Equipment: Walker, Cane, Wheelchair (standard or power), Raised Toilet Seat, ShowerSeat (Grab bars) Patient's Goal/Discharge Plan Patient expects to be discharged to: Return to [facility] Discharge Planning Actions: Continue to follow, Retirement Facility referral indicated [place] of choice: [place] of choice discussed Patient's Choice Rights and [employer] and Collaborative Relationships Disclosed as Indicated for Post-Acute Care: Yes Interdisciplinary Team Engagement: PT/OT Social Work Referral for: Additional Information: Introduced self and role. Patient is admitted (ED roomed) for severe left hip pain after COSTA. Sent back from SNF for surgery re- eval, awaiting notes to determine plan. Patientis currently staying at [facility] to set up return transportation. Sees Dr Cici Calderon (PCP) routinely. Has insurance and prescription coverage, uses [facility]. Patient denies any financial difficulties. Plan to return to SNF when medically stable. Will need pre-cert prior to return. Patient verbalizes understanding and is in agreement with POC. Holli Bhagat RN documented in this [facility]08-30-2023 [facility] 10-10-2022 [facility]08-29-2023 Hospital Discharge instructions * Discharge Instructions* Luis Causey MD - 10/10/2022 7:49 PM EDT Images from the original note were not included. Dr. Berry Mares Adult Hip and Knee Reconstruction [phone] Total Hip Discharge Instruction Physical Therapy Physical [...] are taking narcotic pain medicine such as [place], Percocet, Hydrocodone or Oxycodone. Question: When can [...] surgeon. * Discharge Instr - TIN* Miguel Chapman - 10/06/2022 8:03 AM EDT Continuity of [...] of internal hip prosthesis, initial encounter (HCC) Failed orthopedic implant ([facility]) (HCC) Left hip pain Isolation/Infection: No active isolations No active infections Nurse Assessment: Last Vital Signs: BP 115/61 Pulse 85 Temp 36.4 C (97.6 F) (Temporal) Resp 20 Ht 1.626 m (5'4") Wt 65.8 kg (145 lb) SpO2 91% BMI 24.89 kg/m Last documented pain score (0-10 scale): Last Weight: Wt Readings from Last 1 Encounters: 10/03/22 65.8 kg (145 lb) Mental Status: TIN Patient Mental Status: oriented and alert IV Access: TIN IV Access: None Nursing Mobility/ADLs: Walking Total assistance Transfer Total assistance Bathing Total assistance Dressing Minimal assistance Toileting Total assistance Feeding Independent Mechanical Laboratory Technician Independent Med Delivery yes Wound Care Documentation [...] Score: @READMISSIONRISKDETAILS@ Discharging to Facility/ Agency Name: [address] [address] Address: Fax: Dialysis Facility (if applicable) Name: Address: Dialysis Schedule: Phone: Fax: Business Operations Director/Hand Bookbinder signature: ICIAN SECTION Prognosis: fair Condition at Discharge: stable Rehab Potential (if transferring to Rehab): fair Recommended Labs or Other Treatments After Discharge: none Physician Certification: I certify the above information and transfer of Donna Marsh is necessaryfor the continuing treatment of the diagnosis listed and that she requires group home facilityfor less than 30 days. Update Admission H&P: No change in H&P PHYSICIAN SIGNATURE: documented in this [facility]08-29-2023 [facility] 10-10-2022 [facility]08-25-2023 Miscellaneous Notes* Telephone Encounter - Regina Oden DO - 10/06/2022 5:39 PM EDT I spoke with Joo and answered all her questions that I could. Regina Oden DO * Telephone Encounter - Cristina Graham LPN - 10/06/2022 8:38 AM EDT Patient's daughter is aware that patient cannot have the labs ordered by Dr. Oden at [facility]. We will wait until she is able to come in and have labs drawn. Dr. Oden- patient's daughter, Joo, is asking if you could call her? [phone]. Cristina Graham LPN * Telephone Encounter - Daksha Tang - 10/05/2022 10:27 AM EDT Daughter, Joo called in stating patient has been admitted into [facility]. Please advise if orders can be sent [...] provider on the labs prior to scheduling. specimen technician will call this PSS back once labs [...] yet. Janie Parker LPN documented in this encounterAvita [facility]-25-[facility]23 Consult note* Yana Morgan NP - 10/06/2022 12:12 PM EDTAssociated Order(s): IP WOUND CARE NURSE CONSULT TO EVAL Images from the original note were not included. [facility] Wound Care CONSULT Note Donna [...] ortho office yesterday, she was sent to [place] ED for further evaluation, imaging, and treatment. CTpelvis and further contrasted imaging demonstrated migration of that lag screw proximally into the retroperitoneum, in very close proximity to the left external iliac artery. Vascular surgery contacted and is planning for surgery. Wound Care consulted for abdomen ulcer. Patient reports she likes to "pick her skin". Reports she was apply neosporin and covering [...] by mouth. ergocalciferol (Vitamin D-2) 1.25 MG (34323 UT) capsule Take by mouth. fexofenadine (Roc) [...] (Temporal) Resp 20 Ht 1.626 m (5' 4") Wt 65.8 kg (145 lb) SpO2 91% [...] to follow Recommend to follow up at [facility] wound care center after hospital discharge. Any questions or concerns please secure chat "ACH wound/ostomy". Thank you for the consult! I personally [...] cysts but not entirely included in the xkxhc-cn-xgab. These were present on the CT from [...] supplies for repair are available, transfer to [facility] is needed. Transfer has been initiated by the primary service. * Raman Carvalho MD - 10/04/2022 12:30 PM EDTAssociated Order(s): IP CONSULT TO GENERAL SURGERY Images from the original note were not included. Department of Surgery [facility] Raman Carvalho MD, MPH Consult Note PATIENT [...] straight here for emergent surgery because the "jules didn't hold". Reason for Consult: Possible RP Approach for Hardware Removal HISTORY OF PRESENT ILLNESS: Donna Marsh is a 66 y.o. female with significant past medical history of diabetes, bipolar disorder, HTN, HPL, neuropathy who presents with left hip hardware malposition. Patient was seen in the outpatient setting yesterday with Orthopedic Surgery as a referral from [facility]. She recently fell this past July and was cared for in [place]. She underwent a surgical intervention to address [...] cephalomedullary nail with migration, provoking consult to [facility] Orthopedic specialists. After imaging was obtained in the office yesterday, she was sent to [place] ED for further evaluation, imaging, and treatment. [...] , Rfl: ergocalciferol (Vitamin D-2) 1.25 MG (89088 UT) capsule, Take by mouth., Disp: , [...] W AND WO IV CONTRAST Ordering Provider: [facility] [place] Reason For Exam: hardware failure, surgical planning [...] cysts but not entirely included in the olfzc-yd-ssvs. These were present on the CT from [...] 10/03/2022 Patient Name: DONNA MARSH [facility] 1955 [id number] Exam Date/Time: 10/03/2022 18:51 Procedure: CT HIP [...] will update accordingly pending further discussion. -Regardless, [facility] will be on standby if operative [...] This note may have been dictated using [employer] Medical Practice Edition 2.6 and/or [employer] Voice Recognition Feature. The document was proofread; however, unrecognized voice recognition credit resolution representative errors may be present. Raman Carvalho MD 10/04/2022 12:30 PM * Lydia Harris MD - 10/03/2022 5:57 PM EDT Ortho Consult Patient: Donna Marsh Date of : 1955 Acct: [id number] PCP: CICI CALDERON Date of Admission: 10/03/2022 Date of Service: Pt seen/examined on 10/03/2022 Chief Complaint: Left hip pain History Of Present Illness: 66 y.o. female with a history significant for A-fib, bipolar, dementia,hypertension, coronary artery disease, type 2 diabetes presenting as a referral from [facility]. Back in late July, Donna suffered a ground-level fall resulting in a peritrochanteric left hipfracture that was treated with a short cephalomedullary nail with Dr. Dereck Ramirez of [facility] on 08/06/2022. Per all reports, surgery [...] process. She was ultimately discharged to a [facility]cc and ultimately followed up with Dr. Regina [...] Historical Provider, ergocalciferol (Vitamin D-2) 1.25 MG (15685 UT) capsule Take by mouth. Historical Provider, [...] , Rfl: ergocalciferol (Vitamin D-2) 1.25 MG (22583 UT) capsule, Take by mouth., Disp: , [...] clearance in case of OR, page ortho decision unit rn with clearance status Lydia Harris MD PGY3 [...] necessary. I discussed patient concerns with Donna'mikey Sandoval.Austyn and instructions were given. Please see our orders for the updated patient care plan. Risks of surgery in general were reviewed including, but not limited to, infection, need for additional procedures, leg length discrepancy, dislocation, loosening of prosthesis, damage to normal structures, as well as medical complications such as IL, stroke, PE, DVT, and even . Discussed in this case in particular the elevated risk for vascular injury. Vascular team will be assisting duringthis case. Patient was given opportunity to ask questions and consider her options. Family was available for discussion as well. She ultimately elected to proceed with surgery. No guarantees were stated or implied. documented in this [facility]08-24-2023 [facility] 10-05-2022 NoteReferral placed to [facility] [place] via [facility] per [facility] request. Await review and response regarding ability to accept. TCC notified. [facility]08-24-2023 History and physical note* Senia Griffith MD [...] admitted from orthopedic surgery outpatient office to [place]. After imaging was obtained in the office yesterday, she was sent to [place] ED for further evaluation, imaging, and treatment. [...] 10/03/22 1826 INR 1.0 PHYSICAL EXAM: Vitals: 10/05/22 0922 BP: 94/57 Pulse: 83 Resp: 18 Temp: [...] 10/03/2022 Patient Name: DONNA MARSH : 1955 [id number] Exam Date/Time: 10/03/2022 20:26 Procedure: CT PELVIS [...] cysts but not entirely included in the asyso-iz-echx. These were present on the CT from [...] in the ED. D/w pt and RNLary, shad. Past Medical History: Past Medical History: Diagnosis [...] by mouth. ergocalciferol (Vitamin D-2) 1.25 MG (92618 UT) capsule Take by mouth. fexofenadine (Roc) [...] (98.4 F) (Oral) Resp 16 Ht 5' 4" (1.626 m) Wt 145 lb (65.8 kg) [...] patient's PCP. Thank you. documented in this [facility]08-22-2023 [facility] 10-03-2022 Emergency department Note* Vineet Mckeon MD - 10/03/2022 5:27 PM EDT Emergency Department Encounter [facility] ED Patient: Donna Marsh : 1955 [...] pain in her left foot. Focused exam: Dtydnsp-rjqw-edhsydcin, no acute distress, nontoxic-appearing HEENT- atraumatic, normocephalic [...] is okay keeping the patient here at [place]. She will be admitted for further management/surgery. [...] dictating provider for clarification.) Vineet Mckeon MD [facility] Vineet Mckeon MD 10/03/222013 * Rudy Quintana [...] straight here for emergent surgery because the "jules didn't hold". HISTORY OF PRESENT ILLNESS (Location/Symptom, Timing/Onset, Context/Setting, [...] by mouth. ERGOCALCIFEROL (VITAMIN D-2) 1.25 MG (50730 UT) CAPSULE Take by mouth. FEXOFENADINE (ROC) [...] Alcohol use: No Drug use: No SCREENINGS [place] Coma Scale Best Eye Response: Spontaneous Best Verbal Response: Oriented Best Motor Response: Follows commands [place] Coma Scale Score: 15 PHYSICAL EXAM ED [...] equal to 30 ng/mL Test performed by [employer] Immunoassay, measuring Total Vitamin D, not individual fractions. POCT GLUCOSE METER UNSOLICITED RESULTS - Normal Glucose 98 Narrative: Performed by: Ronna Leonardo [facility], [address] [place] [id number] CLIA ID: [id number] BLOOD TYPE AND SCREEN GEL ABO Grouping O Antibody Screen NEG Rh Type POS CONFIRMATORY ABO/RH ABO Grouping O Rh Type POS HEMOGLOBIN A1C CBC WITH AUTO DIFFERENTIAL COMPREHENSIVE METABOLIC PANEL WITH MG REFLEX Narrative: The following orders were created for panel order Comprehensive Metabolic Panel w/ Mg Reflex. Procedure Abnormality Status --------- ------ Comprehensive metabolic p...[[id number]] Please view results for these tests on [...] kg (145 lb) Height: 1.626 m (5' 4") Medications morphine injection 2 mg (2 mg [...] also reviewed external records from Inpatient notes [facility]. I discussed their care with [facility]. The patient will be Admitted. Patient is in agreement with this plan. PROCEDURES: Unless otherwise noted below, none Procedures CRITICAL CARE TIME FINAL IMPRESSION 1. Complication of internal hip prosthesis, initial encounter ([facility]) DISPOSITION Admit 10/03/2022 07:11:13 [...] Rudy Quintana PA-C 10/03/222149 documented in this [facility]08-22-2023 History of Present illness Narrative* Cici Martinez MD - 10/03/2022 2:10 PM EDT [facility]ORTS MEDICINE [address] [place] [address] [place] [id number] Dept: [phone] Dept Chief Complaint Patient presents with New Patient Left hip possible metastatic cancer SUBJECTIVE HPI Donna is a 66-year-old female with a history significant for A-fib, bipolar, dementia, hypertension,coronary artery disease, type 2 diabetes presenting as a referral from [facility]. Back inlate July, Donna suffered a ground- level fall resulting in a non-displaced peritrochanteric left hipfracture that was treated with a short cephalomedullary nail with Dr. Dereck Ramirez of [facility] on 08/06/2022. Per all reports, surgery was [...] process. She was ultimately discharged to a [facility] and ultimately followed up with Dr. Regina [...] List Diagnosis Date Noted Failed orthopedic implant ([facility]) (HCC) 10/03/2022 Left hip pain 10/03/2022 Allergies Allergen Reactions Codeine Other reaction(s): Intolerance, Itching Itching Fentanyl Other reaction(s): confusion Morphine Other Loss of Memory Nsaids Rash No family history on file. Past Medical History: Diagnosis Date Bipolar 1 disorder ([facility]) Diabetes mellitus ([facility]) Hyperlipidemia Hypertension Neuropathy Social History Socioeconomic History [...] by mouth. ergocalciferol (Vitamin D-2) 1.25 MG (09485 UT) capsule Take by mouth. fexofenadine (Roc) [...] RLE. Bonemarrow and bone biopst perfromed at [facility] August 2022 Skin: Negative for color change, pallor, rash and wound. Allergic/Immunologic: Negative for environmental allergies, food allergies and immunocompromised state. Neurological: Negative for dizziness, weakness, light-headedness, numbness and headaches. Hematological: Negative for adenopathy. Does not bruise/bleed easily. Psychiatric/Behavioral: Negative for behavioral problems, confusion, self-injury and sleep disturbance. OBJECTIVE Vitals: 10/03/22 1407 Weight: 65.8 kg (145 lb) Height: 1.638 m (5' 4.5") Physical Exam Physical Exam Vitals and nursing note reviewed. Constitutional: Appearance: Normal appearance. Positioned on gurney Cardiovascular: Rate and Rhythm: Normal rate. Pulmonary: [...] callus formation, and extreme varus. CT abdomen/pelvis ([facility], 08/14/2022): Status post left hip cephalomedullary nail, hardware intact but noted possible superior cut out of the lag screw. Severe osteoporosis throughout the pelvis and lumbosacral spine. Numerous sclerotic/lytic lesions throughout the bony pelvis and lumbar spine with numerous compression fractures in various stages of healing. ASSESSMENT 1. Failed orthopedic implant, initial encounter ([facility]) 2. Left hip pain [...] attempted to have her direct admitted to [facility] however this was not available. Due to the nature of her problem which will likely require an arthroplasty solution, patient will present to [facility] emergency department we will obtain an updated CT scan to assess the position of her failed hardware. I did not feel that having her return to her mcc in this state was in her best [...] 10/03/2022 at 5:50 PM documented in this [facility]08-17-2023 Miscellaneous Notes* Telephone Encounter - Cristina Graham LPN - 09/28/2022 8:37 AM EDT Attempted to contact Sue at number listed below, not a working number. The CT in question was requested by the IR physician at [facility] and is not needed now. Cristina Graham LPN * Telephone Encounter - Daksha Tang - 09/27/2022 3:56 PM EDT Sue called stating she has a CT order that states needs to be completed prior to biopsy. She states patient had biopsy on 09/[address] still needs to be completed. Please advise her at [phone] documented in this encounterAvita [facility]08-07-2023 Miscellaneous Notes* Telephone Encounter - Cristina Graham LPN - 09/18/2022 3:49 PM EDT Order revised and re-faxed to [facility]. Cristina Graham LPN * Telephone Encounter - Kanwal Mccarthy - 09/18/2022 1:38 PM EDT Nurse calling from [facility] Green Top Tube for Flow CYTOMETRY Provider at [facility] thinks it should be ordered with flow. The order that was sent has flow crossed off. Please reach out to the nurse Teresa- [phone] (is in till 2pm today.Will be in in the morning). Ok to just fax new order [phone] documented in this encounterAvita Health [facility]07-07-2023 Miscellaneous Notes* Telephone Encounter - Daksha [...] in pt to return call folder at [facility] desk documented in this encounterAvita Health System [facility]07-05-2023 Discharge summary Author Tamiko Quigley [facility] August 16, 2022 3:37pm Note Date/Time August 16, 2022 3:15p [facility] Medical Records Department [address] [place] [address] Discharge Summary 08/16/22 1513 MR#: [id number] Acct: [id number] Name: DONNA MARSH Rep #:[id number] : 1955 66 From: Tamiko Quigley DO PCP: ORESTES Cano Status:ADM IN Location: [place] [id number] Providers Date of Admission: 08/05/22 Date of Discharge: 08/16/22 Primary Care Physician: ORESTES Cano Consultations 08/14/22 13:25 Consult: Oncology/Hematology Routine Consulting Provider: Home Miller Reason for Consult: Metastatic dz of unknown primary EMERGENT Consult: No MD Notified: Yes Date Notified: 08/14/22 Time Notified: 13:25 Method of Notification: paged via coupling machine operator 08/15/22 07:08 Consult: Color Separation Photographer / Pulmonary Medicine Routine Consulting Provider: Pulmonary Medicine [facility] Reason for Consult: Empyema EMERGENT Consult: No [...] who presented to the emergency department at [facility] on 08/05/2022 after a fall related [...] Joo who is her healthcare power of security assurance specialist. Discharge diagnoses: Acute left intertrochanteric fracture Multiple [...] Neut % (Auto) 69.7, Lymph % (Auto)19.3, Alcorn % (Auto) 7.9, Eos % (Auto) 1.8, [...] hospital doctor discussed the case with Dr. OdenRudy Powell NP-C [Primary Care Provider] - Within 1 Month Disposition Disposition (needs filled in before D/C Order can be placed): Retirement Facility Charges/Coding Visit Charges Inpatient E&M: 13811 SNF Disch >30 Min 08/16/22 1537 <Electronically signed by Tamiko Quigley DO> Cosigner Signature (if applicable): CC: TRAUMA COORDINATOR-C Rudy Boyer; Dr. Tamiko Quigley DO; Dr. Dereck Ramirez DO; Dr. Tsai DO~ Signed [facility] Work Phone: 1(395) 291-584007-05-2023 Progress note Author Dann Linn [facility] August 16, 2022 3:16pm Note Date/Time August 16, 2022 3:16p m [facility] Medical Records Department [address] [facility] [place] [address] Progress Note - Color Separation Photographer 08/16/22 1503 MR#: [id number] Acct: [id number] Name: DONNA MARSH Rep #:[id number] : 1955 66 From: Dann Linn MD PCP: ORESTSE Cano Status:ADM IN Location: [place] [address] Assessment & Plan Assessment/Plan (1) Pleural effusion: [...] Plan Patient has improved. [facility] [place] will sign off for now, please call [...] Neut % (Auto) 69.7, Lymph % (Auto)19.3, Alcorn % (Auto) 7.9, Eos % (Auto) 1.8, [...] and/or motivation. Charges/Coding Visit Charges Inpatient E&M: 40373 Subs Hosp L2 08/16/22 1516 <Electronically signed by Dann Linn MD> Cosigner Signature (if applicable): CC: ~ Signed [facility] Work Phone: 1(208) 633-457507-05-2023 Discharge summary Author Tamiko Quigley [facility] August 16, 2022 3:12pm Note Date/Time August 16, 2022 3:12p m [facility] Medical Records Department [address] [place] [address] Transfer to [facility] MR#: [id number] Acct: [id number] Name: DONNA MARSH Rep #:[id number] : 1955 66 From: Tamiko Quigley DO PCP: ORESTES Cano Status:ADM IN Certification of patient admission REQUIRED AT TIME OF ADMISSION. I CERTIFY THAT POST-HOSPITAL ECF SERVICES ARE REQUIRED TO BE GIVEN ON AN IN-PATIENT BASIS BECAUSE OF THE ABOVE NAMED PATIENT'S NEED FOR LONG-TERM CARE ON A CONTINUING BASIS FOR THE CONDITION(S) FOR WHICH HE/SHE WAS RECEIVING IN-PATIENT HOSPITAL SERVICES PRIOR TO HIS/HER TRANSFER TO THE [facility]. 08/16/22 1512<Electronically signed by Tamiko Quigley DO> [...] Quezada; Dann Linn; Floyd Kelley; Cindy Wyatt TRAUMA COORDINATOR; Prem Toro Instructions Patient Instructions: PETE RN [...] Rudy Boyer NP-C [Primary Care Provider] - 08/16/22 1512 <Electronically signed by Tamiko Quigley DO> Cosigner Signature (if applicable): CC: TRAUMA COORDINATORJarad Wyatt; TRAUMA COORDINATORAnneC Rudy Boyer; Dr. Filemon Coffman MD; Dr. Raúl DO; Dr. Home Valverde MD; Dr. Home Miller MD; Dr. Dann Linn MD; Dr. John Short DO; Dr. Prem Toro MD; Dr. Floyd Kelley MD~ [facility] Work Phone: 1(577) 260-268907-05-2023 Consult note Author Gilberto Galvez [facility] August 16, 2022 11:38am Note Date/Time August 16, 2022 11:38 am [facility] Medical Records Department [address] [place] [address] Consultation - Infectious Dx 08/16/22 1134 MR#: [id number] Acct: [id number] Name: DONNA MARSH Rep #:[id number] : 1955 66 From: Gilberto Galvez MD PCP: ORESTES Cano Status:ADM IN Location: [place] [id number]- [phone] Assessment & Plan Assessment/Plan (1) Pleural [...] seen by pulmonary service on this admission. [facility] Medical History Anxiety Atrial fibrillation Back pain [...] Neut % (Auto) 69.7, Lymph % (Auto)19.3, Alcorn % (Auto) 7.9, Eos % (Auto) 1.8, [...] Galvez MD> Cosigner Signature (if applicable): CC: TRAUMA COORDINATOR-C Cindy Wyatt; TRAUMA COORDINATOR-C Rudy Boyer; Dr. Filemon Coffman MD; Dr. Raúl DO; Dr. Home Valverde MD; Dr. Home Miller MD; Dr. Dann Linn MD; Dr. John Short DO; Dr. Prem Toro MD; Dr. Floyd Kelley MD~ Signed [facility] Work Phone: 1(439) 369-598207-04-2023 Consult note Author [facility] August 15, 2022 4:25pm Note Date/Time August 15, 2022 3:48p [facility] Medical Records Department [address] [place] [address] Consultation - Color Separation Photographer 08/15/22 1524 MR#: [id number] Acct: [id number] Name: DONNA MARSH Rep #:[id number] : 1955 66 From: Dann Linn MD PCP: ORESTES Cano Status:ADM IN Location: [place] [address] Dann Linn MD on 08/15/22 at 1625 Addendum Patient is significantly fluid overloaded after her surgery. -Recommend Lasix 40 mg IV twice daily for 2 days, then p.o. once or twice dailyuntil she diuresis down to her baseline weight. - Mobilize - Compression stockings on right lower extremity 08/15/22 1625<Electronically signed by Dann Linn MD> Cosigner Signature (if applicable): cc: TRAUMA COORDINATOR-C Cindy Wyatt; TRAUMA COORDINATOR-C Rudy Boyer; Dr. Filemon Coffman MD; Dr. [...] and known vertebral compression fractures from [address] [facility] CT also showed large hematoma behind [...] which she states is because of charley horses". She has a history of falling occasionally and uses a cane to walk. She lives at home with her son and . Past medical history is reviewed. She is a smoker with no history of COPD or lung disease. She had a traumatic rib fractures 2005, denies DVT or PE, does have aspiration and falls occasionally. [facility] [place] was asked to comment on whether she has empyema. Past family social history, medications allergies were reviewed. 12 system review is negative except as above. [facility] Medical History Anxiety Atrial fibrillation Back pain [...] RDW Coeff of Gerhard 16.3 H, Plt Eriqq754, MPV 9.9, Immature Gran % (Auto) 1.500 H, Neut % (Auto) 77.7 H, Lymph % (Auto) 12.8 L, Alcorn % (Auto) 6.5, Eos % (Auto) 1.4, [...] 7:45 EDT Reading Location ID and State: [facility] / [place] , Service support , Charges/Coding Visit Charges Inpatient E&M: 47277 Init Hosp L3 08/15/22 1621 <Electronically signed by Dann Linn MD> Cosigner Signature (if applicable): CC: ORESTES Wyatt; TRAUMA COORDINATORAnneC Rudy Boyer; Dr. Filemon Coffman MD; Dr. Raúl DO; Dr. Home Valverde MD; Dr. Home Miller MD; Dr. Dann Linn MD; Dr. John Short DO; Dr. Floyd Kelley MD~ Signed [facility] Work Phone: 1([phone]) 212-363607-04-2023 Progress note Author Tamikosancho Quigley [facility] August 15, 2022 1:14pm Note Date/Time August 15, 2022 1:09p [facility] Medical Records Department [address] [place] [address] Progress Note - Hospitalist 08/15/22 1301 MR#: [id number] Acct: [id number] Name: DONNA MARSH Rep #:[id number] : 1955 66 From: Tamiko Quigley DO PCP: ORESTES Cano Status:ADM IN Location: [place] [id number]- [phone] Reason for Visit Reason for Visit: [...] They would like to follow-up with Dr. Arben leger if possible. I will call him [...] RDW Coeff of Gerhard 16.3 H, Plt [id number], MPV 9.9, Immature Gran % (Auto) 1.500 H, Neut % (Auto) 77.7 H, Lymph % (Auto) 12.8 L, Alcorn % (Auto) 6.5, Eos % (Auto) 1.4, [...] 48 hours Charges/Coding Visit Charges Inpatient E&M: 94649 Subs Hosp L2 08/15/22 1314 <Electronically signed by Tamiko Quigley DO> Cosigner Signature (if applicable): CC: ~ Signed [facility] Work Phone: 1(329) 767-160607-03-2023 Consult note Author Home Miller [facility] August 14, 2022 6:11pm Note Date/Time August 14, 2022 5:51p m [facility] Cancer Care [address] [place] [address] Consultation - Oncology IP 08/14/22 1748 MR#: [id number] Acct: [id number] Name: DONNA MARSH Rep #:[id number] : 1955 66 From: Home Miller MD PCP: ORESTES Cano Status:ADM IN Location: [place] [id number]- [phone] Assessment & Plan Assessment/Plan (1) Pleural [...] is now sedated. 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 Electronically Signed: Keaton Pineda DO at 18:54 EDT , Hip/Pelvis X-Ray 08/06/22 [...] Charges/Coding Visit Charges Office Visits / Consults: 36572 IP Consult L3 08/14/221810 <Electronically signed by Home Miller MD> CC: ORESTES Boyer; Dr. Home Valverde MD; Dr. Home Miller MD; Dr. John Short, DO ~ Signed [facility] Work Phone: 1([phone]) 143-410307-03-2023 Progress note Author Tamiko Quigley [facility] August 14, 2022 3:04pm Note Date/Time August 14, 2022 3:04p m [facility] Medical Records Department [address] [place] [address] Progress Note - Hospitalist 08/14/22 1441 MR#: [id number] Acct: [id number] Name: DONNA MARSH Rep #:[id number] : 1955 66 From: Tamiko Quigley DO PCP: ORESTES Cano Status:ADM IN Location: [place] [id number]- 1 Reason for Visit Reason for Visit: Fall with left hip pain Subjective Subjective Mrs. Marsh is a 66-year-old white female who presented to the emergency department at [facility] on 08/05/2022 after a fall related [...] Clarity Clear, Urine pH 6.0, Ur Specific Bude 1.015, Urine Protein 15 H, Urine Glucose [...] 80.8 H, Lymph % (Auto) 8.2 L, Alcorn % (Auto) 6.6, Eos % (Auto) 1.7, [...] -Full code Charges/Coding Visit Charges Inpatient E&M: 94711 Subs Hosp L3 08/14/22 1504 <Electronically signed by Tamiko Quigley DO> Cosigner Signature (if applicable): CC: ~ Signed [facility] Work Phone: 1([phone]) 497-162507-02-2023 Progress note Author [facility] August 13, 2022 7:33pm Note Date/Time August 13, 2022 6:00p [facility] Medical Records Department [address] [place] [address] Progress Note - Hospitalist 08/13/22 1756 MR#: [id number] Acct: [id number] Name: DONNA MARSH Rep #:[id number] : 1955 66 From: John Short DO PCP: ORESTES Cano Status:ADM IN Location: [place] [id number]- 1 Reason for Visit Reason for Visit: [...] 82.8 H, Lymph % (Auto) 7.9 L, Alcorn % (Auto) 5.6, Eos % (Auto) 1.8, [...] thepatient, she will be placed in a group home facility when a bed is available #2 [...] there is also a lytic lesion in B97-[id number] will need further work-up concerning this. #12 hypoxia secondary to left pleural effusion and probable CHF-again patient will be placed on IV Lasix and echocardiogram will be obtained, she will undergothoracentesis tomorrow .Total clinical time spent by myself addressing the patient's medical issues, reviewing all of her data, and collaborating with patient's care team: 55 minutes Charges/Coding Visit Charges Inpatient E&M: 74163 Subs Hosp L3 08/13/221805 <Electronically signed by John Short DO> Cosigner Signature (if applicable): CC: ~ Signed ADDENDUM by Dr. John Short DO on 08/13/22 at 1933 Addendum Additional note, I have decided to place the patient on broad-spectrum antibiotics due to her left pleural effusion and inability to adequately assess the left lung for pneumonia. 08/13/221932<Electronically signed by John Short DO> Cosigner Signature (if applicable): cc: ~* Signed [facility] Work Phone: 1(447) 441-201707-01-2023 Progress note Author Dereck Ramirez [facility] August 12, 2022 1:09pm Note Date/Time August 12, 2022 1:08p m [facility] Medical Records Department [address] [place] [address] Progress Note - Orthopedic 08/12/22 1304 MR#: [id number] Acct: [id number] Name: DONNA MARHS Rep #:[id number] : 1955 66 From: Dereck lynch DO PCP: ORESTES Cano Status:ADM IN Location: [place] [address] Subjective Subjective Patient seen and examined. Mental [...] tolerated left lower extremity. -Will follow 08/12/22 1309 <Electronically signed by Dereck Ramirez DO> Cosigner Signature (if applicable): CC: ~ Signed [facility] Work Phone: 1([phone]) 570-588407-01-2023 Progress note Author John Short [facility] August 12, 2022 12:27pm Note Date/Time August 12, 2022 12:27 pm [facility] Medical Records Department [address] [place] [address] Progress Note - Hospitalist 08/12/22 1225 MR#: [id number] Acct: [id number] Name: DONNA MARSH Rep #:[id number] : 1955 66 From: John Short DO PCP: Rudy Sharla, TRAUMA COORDINATOR-C Status:ADM [facility] Reason for Visit Reason for Visit: [...] thepatient, she will be placed in a group home facility when a bed is available #2 [...] 25 minutes Charges/Coding Visit Charges Inpatient E&M: 68854 Subs Hosp L1 08/12/22 1227 <Electronically signed by John Short DO> Cosigner Signature (if applicable): CC: ~ Signed [facility] Work Phone: 1(527) 204-193806-30-2023 Progress note Author John Short [facility] August 11, 2022 4:17pm Note Date/Time August 11, 2022 4:09 pm [facility] Medical Records Department [address] [place] [address] Progress Note - Hospitalist 08/11/22 1607 MR#: [id number] Acct: [id number] Name: ODNNA MARSH Rep #:[id number] : 1955 66 From: John Short DO PCP: ORESTES Cano Status:ADM IN Location: [place] [address]- 1 Reason for Visit Reason for Visit: [...] Physical therapy worked with the patient today, medical social worker talk with the patient's daughter about [facility] placement, the rehab unit has denied patient [...] 76.2 H, Lymph % (Auto) 13.8 L, Alcorn % (Auto) 5.7, Eos % (Auto) 2.3, [...] patient, she will be placed in a group home facility when a bed is available #2 [...] 25 minutes Charges/Coding Visit Charges Inpatient E&M: 73958 Subs Hosp L1 08/11/22 1617 <Electronically signed by John Short DO> Cosigner Signature (if applicable): CC: ~ Signed [facility] Work Phone: 1(174) 475-559606-30-2023 Progress note Author Dereck Ramirez [facility] August 11, 2022 8:01am Note Date/Time August 11, 2022 8:01 am [facility] Medical Records Department [address] [place] [address] [place] [address] Progress Note - Orthopedic 08/11/22 0757 MR#: [id number] Acct: [id number] Name: DONNA MARSH Rep #:[id number] : 1955 66 From: Dereck lynch DO PCP: ORESTES Cano Status:ADM IN Location: [place] [address] Subjective Subjective Patient seen and examined. Alert [...] 76.2 H, Lymph % (Auto) 13.8 L, Alcorn % (Auto) 5.7, Eos % (Auto) 2.3, [...] Cosigner Signature (if applicable): CC: ~ Signed [facility] Work Phone: [phone] Progress note Author Kanwal Aguilar [facility] August 10, 2022 10:56pm Note Date/Time August 10, 2022 10:5 6pm [facility] Medical Records Department [address] [facility] [place] [address] Progress Note - Hospitalist 08/10/222253 MR#: [id number] Acct: [id number] Name: DONNA MARSH Rep #:[id number] : 1955 66 From: Kanwal Aguilar MD PCP: ORESTES Cano Status:ADM IN Location: [place] [address] Hospitalist Note Patient with ongoing persistent pain. No improvement with low dose gabapentin trial from discussion with staff. Notes spasms, trial flexeril with mild improvement from 10/10 to 8/10. Will trial norco x 1 per patient/family agreement with close monitoring of her mental status given prior reported confusion/sedation. 08/10/222255 <Electronically signed by Kanwal Aguilar MD> Cosigner Signature (if applicable): CC: ~ Signed [facility] Work Phone: [phone] Progress note Author Dereck Ramirez [facility] August 10, 2022 5:02pm Note Date/Time August 10, 2022 5:02 pm [facility] Medical Records Department [address] [place] [address] Progress Note - Orthopedic 08/10/22 1658 MR#: [id number] Acct: [id number] Name: DONNA MARSH Rep #:[id number] : 1955 66 From: Dereck lynch DO PCP: Rudy Boyer TRAUMA COORDINATORJarad Status:ADM IN Location: [place] [id number]- 1 Subjective Subjective This is a late [...] 74.7 H, Lymph % (Auto) 15.5 L, Alcorn % (Auto) 7.7, Eos % (Auto) 1.4, [...] as tolerated left lower extremity. -Will follow 08/10/221701 <Electronically signed by Dereck Ramirez DO> Cosigner Signature (if applicable): CC: ~ Signed [facility] Work Phone: 1([phone]) 506-358406-29-2023 Progress note Author John Short [facility] August 10, 2022 2:32pm Note Date/Time August 10, 2022 2:33 pm [facility] Medical Records Department [address] [place] [address] Progress Note - Hospitalist 08/10/22 1431 MR#: [id number] Acct: [id number] Name: DONNA MARSH Rep #:[id number] : 1955 66 From: John Short DO PCP: ORESTES Cano Status:ADM IN Location: [place] [address] Reason for Visit Reason for Visit: Diagnoses [...] 74.7 H, Lymph % (Auto) 15.5 L, Alcorn % (Auto) 7.7, Eos % (Auto) 1.4, [...] will most likely need placement in a group home facility versus rehab facility. #2 type 2 [...] 25 minutes Charges/Coding Visit Charges Inpatient E&M: 20457 Subs Hosp L1 08/10/22 1432 <Electronically signed by John Short DO> Cosigner Signature (if applicable): CC: ~ Signed [facility] Work Phone: [phone] Progress note Author [facility] August 10, 2022 6:48am Note Date/Time August 10, 2022 6:49 am [facility] Medical Records Department [address] [place] [address] Progress Note - Hospitalist 08/10/22647 MR#: [id number] Acct: [id number] Name: DONNA MARSH Rep #:[id number] : 1955 66 From: Kanwal Aguilar MD PCP: ORESTES Cano Status:ADM IN Location: [place] [address] Hospitalist Note AM Hgb 6.2, steadily decreased s/p OR with suspected blood loss anemia, will order 2 u PRBC and repeat HH following completion. 08/10/22647 <Electronically signed by Kanwal Aguilar MD> Cosigner Signature (if applicable): CC: ~ Signed [facility] Work Phone: [phone] Progress note Author Dereck Ramirez [facility] August 09, 2022 6:55pm Note Date/Time August 09, 2022 6:55 pm [facility] Medical Records Department [address] [place] [address] Progress Note - Orthopedic 08/09/22 185 MR#: [id number] Acct: [id number] Name: DONNA MARSH Rep #:[id number] : 1955 66 From: Dereck lynch DO PCP: ORESTES Cano Status:ADM IN Location: [place] [address] Subjective Subjective Patient seen and examined. Family [...] 81.2 H, Lymph % (Auto) 9.9 L, Alcorn % (Auto) 7.1, Eos % (Auto) 0.6, [...] Cosigner Signature (if applicable): CC: ~ Signed [facility] Work Phone: 1([phone]) 290-218206-28-2023 Progress note Author John Short [facility] August 09, 2022 3:11pm Note Date/Time August 09, 2022 3:11 pm [facility] Medical Records Department [address] [place] [address] Progress Note - Hospitalist 08/09/22 1506 MR#: [id number] Acct: [id number] Name: DONNA MARSH Rep #:[id number] : 1955 66 From: John Short DO PCP: ORESTES Cano Status:ADM IN Location: [place] [address] Reason for Visit Reason for Visit: Diagnoses [...] 81.2 H, Lymph % (Auto) 9.9 L, Alcorn % (Auto) 7.1, Eos % (Auto) 0.6, [...] will most likely need placement in a group home facility versus rehab facility. #2 type 2 [...] 35 minutes Charges/Coding Visit Charges Inpatient E&M: 71114 Subs Hosp L2 08/09/22 1511 <Electronically signed by John Short DO> Cosigner Signature (if applicable): CC: ~ Signed [facility] Work Phone: [phone]) [phone] Progress note Author John Short [facility] August 08, 2022 6:38pm Note Date/Time August 08, 2022 6:38 pm [facility] Medical Records Department [address] [place] [address] Progress Note - Hospitalist 08/08/22 1832 MR#: [id number] Acct: [id number] Name: DONNA MARSH Rep #:[id number] : 1955 66 From: John Short DO PCP: ORESTES Cano Status:ADM IN Location: [place] [address] Reason for Visit Reason for Visit: Diagnoses [...] will most likely need placement in a group home facility versus rehab facility. #2 type 2 [...] 35 minutes Charges/Coding Visit Charges Inpatient E&M: 64830 Subs Hosp L2 08/08/22 1838 <Electronically signed by John Short DO> Cosigner Signature (if applicable): CC: ~ Signed [facility] Work Phone: [phone]) 640-734206-27-2023 Progress note Author Dereck Ramirez [facility] August 08, 2022 5:42pm Note Date/Time August 08, 2022 5:42 pm [facility] Medical Records Department [address] [place] [address] Progress Note - Orthopedic 08/08/22 1737 MR#: [id number] Acct: [id number] Name: DONNA MARSH Rep #:[id number] : 1955 66 From: Dereck lynch DO PCP: ORESTES Cano Status:ADM IN Location: [place] [address] Subjective Subjective Patient seen and examined. Family [...] Total 3032.50 / 3032.50 3460.00 / 3460.00 178. / 178.25 Output Total 325 / 525 200 / 200 Balance 2707.50 / 2507.50 3260.00 / 3260.00 178. / 178.25 Lab / Micro Data Result Diagrams: 08/07/22 [...] as tolerated left lower extremity. -Will follow 08/08/221741 <Electronically signed by Dereck Ramirez DO> Cosigner Signature (if applicable): CC: ~ Signed [facility] Work Phone: [phone] Progress note Author John Short [facility] August 07, 2022 7:13pm Note Date/Time August 07, 2022 7:13 pm [facility] Medical Records Department [address] [place] [address] Progress Note - Hospitalist 08/07/22 190 MR#: [id number] Acct: [id number] Name: DONNA MARSH Rep #:[id number] : 1955 66 From: John Short DO PCP: ORESTES Cano Status:ADM IN Location: [place] [id number]- 1 Reason for Visit Reason for Visit: [...] to go to a rehab facility or group home facility for short-term rehab services rather than [...] 84.1 H, Lymph % (Auto) 8.6 L, Alcorn % (Auto) 6.6, Eos % (Auto) 0.0, [...] Sl. Cloudy, Urine pH 5.0, Ur Specific Bude 1.015, Urine Protein 30 H, Urine Glucose [...] (Auto) 83.4 H, Lymph % (Auto)9.3 L, Alcorn % (Auto) 6.3, Eos % (Auto) 0.1, [...] 21:28 EDT Reading Location ID and State: [facility] / Tel , Service support , Hip/Pelvis [...] 5:20 EDT Reading Location ID and State: [facility] / [place] Tel , Service support , ADDENDUM: 08/07/22 0536 IMPRESSION: Negative Brain CT without contrast. N.B. : The above Results were Read Back by Trevor Farmer MD to Home Valverde MD, and understanding confirmed on 08/07/2022 05:29:17 (ET). Electronically Signed: Trevor Farmer MD at 5:20 EDT Reading Location ID and State: [facility] / [place] Tel , Service support , Head/Neck CTA 08/07/22 05:47 IMPRESSION: No hemodynamically significant stenosis in the main intracranial arteries are in the arteries of neck. Electronically Signed: Trevor Farmer MD at 6:23 EDT Reading Location ID and State: [address] [place] [address] Tel , Service support , ADDENDUM: 08/07/22 0736 IMPRESSION: No hemodynamically significant stenosis in the main intracranial arteries are in the arteries of neck. N.B. : The above Results were Read Back by Trevor Farmer MD to Home Valverde and understanding confirmed on 08/07/2022 07:29:46 (ET). Electronically Signed: Tervor Farmer MD at 6:23 EDT Reading Location ID and State: [facility] / [place] Tel , Service support , Chest X-Ray 08/07/22 05:58 IMPRESSION: No radiographic evidence of acute cardiopulmonary disease. Electronically Signed: Trevor Farmer MD at 8:03 EDT Reading Location ID and State: [facility] / [place] Tel , Service support , Brain MRI 08/07/22 06:47 IMPRESSION: 1. [...] 50 minutes Charges/Coding Visit Charges Inpatient E&M: 57025 Subs Hosp 08/07/221912 <Electronically signed by John Short DO> Cosigner Signature (if applicable): CC: ~ Signed [facility] Work Phone: [phone]) 660-484406-26-2023 Progress note Author Dereck Ramirez [facility] August 07, 2022 7:13am Note Date/Time August 07, 2022 7:13 am [facility] Medical Records Department [address] [place] [address] Progress Note - Orthopedic 08/07/22705 MR#: [id number] Acct: [id number] Name: DONNA MARSH Rep #:[id number] : 1955 66 From: Dereck lynch DO PCP: ORESTES Cano Status:ADM IN Location: [place] [address] Subjective Subjective Patient seen and examined. Reports pain is improved in her left hip. She is unclear about the details of last evening which resulted in a stroke alert and stroke work-up due to confusion. She states "people kept coming in my room ". She appears comfortable this morning. She is [...] 84.1 H, Lymph % (Auto) 8.6 L, Alcorn % (Auto) 6.6, Eos % (Auto) 0.0, [...] 21:28 EDT Reading Location ID and State: [facility] MD Tel , Service support , Hip/Pelvis X-Ray 08/06/22 06:30 IMPRESSION: Intraoperative images obtained for hardware localization. Electronically Signed: Fátima Bucio MD at 23:57 EDT Reading Location ID and State: [facility] Tel , Service support , Brain CT 08/07/22 04:53 IMPRESSION: Negative Brain CT without contrast. Electronically Signed: Trevor Farmer MD at 5:20 EDT Reading Location ID and State: [facility] / [place] Tel , Service support , ADDENDUM: 08/07/22 0529 IMPRESSION: Negative Brain CT without contrast. N.B. : The above Results were Read Back by Trevor Farmer MD to Home Valverde MD, and understanding confirmed on 08/07/2022 05:23:01 (ET). Electronically Signed: Trevor Farmer MD at 5:20 EDT Reading Location ID and State: [facility] / [place] Tel , Service support , ADDENDUM: 08/07/22 0536 IMPRESSION: Negative Brain CT without contrast. N.B. : The above Results were Read Back by Trevor Farmer MD to Home Valverde MD, and understanding confirmed on 08/07/2022 05:29:17 (ET). Electronically Signed: Trevor Farmer MD at 5:20 EDT Reading Location ID and State: [facility] / [place] Tel , Service support , Head/Neck CTA [...] Cosigner Signature (if applicable): CC: ~ Signed [facility] Work Phone: [phone]) 901-753806-26-2023 Progress note Author Home Valverde [facility] August 07, 2022 6:47am Note Date/Time August 07, 2022 6:09 am [facility] Medical Records Department [address] [place] [address] Progress Note - Hospitalist 08/07/22 06 MR#: [id number] Acct: [id number] Name: DONNA MARSH Rep #:[id number] : 1955 66 From: Home Valverde MD PCP: ORESTES Cano Status:ADM IN Location: [place] [id number]- 1 Reason for Visit Reason for Visit: [...] 85.1 H, Lymph % (Auto) 9.0 L, Alcorn % (Auto) 4.6, Eos % (Auto) 0.3, [...] 84.1 H, Lymph % (Auto) 8.6 L, Alcorn % (Auto) 6.6, Eos % (Auto) 0.0, [...] Cosigner Signature (if applicable): CC: ~ Signed [facility] Work Phone: [phone]) [phone] Progress note Author [facility] August 06, 2022 5:23pm Note Date/Time August 06, 2022 5:05 pm [facility] Medical Records Department [address] [place] [address] Progress Note - Hospitalist 08/06/22 1701 MR#: [id number] Acct: [id number] Name: DONNA MARHS Rep #:[id number] : 1955 66 From: John Short DO PCP: ORESTES Cano Status:ADM IN [facility] Reason for Visit Reason for Visit: Diagnoses [...] like the patient to go to short-term group home when she is discharged from the hospital, [...] 89.8 H, Lymph % (Auto) 6.0 L, Alcorn % (Auto) 3.2, Eos % (Auto) 0.2, [...] 85.1 H, Lymph % (Auto) 9.0 L, Alcorn % (Auto) 4.6, Eos % (Auto) 0.3, [...] Keaton Pineda DO at 20:10 EDT , Rhythm Strip Rhythm [...] 50 minutes Charges/Coding Visit Charges Inpatient E&M: 39390 Subs Hosp L2 08/06/221722 <Electronically signed by John Short DO> Cosigner Signature (if applicable): CC: ~ Signed [facility] Work Phone: 1(281) 506-998506-25-2023 Procedure [facility] 08-05-2022 History and physical note Author Home Valverde [facility] August 05, 2022 9:52pm Note Date/Time August 05, 2022 8:27 pm [facility] Medical Records Department [address] [place] [address] [place] [address] H&P Exam - Hospitalist 08/05/222026 MR#: [id number] Acct: [id number] Name: DONNA MARSH Rep #:[id number] : 1955 66 From: Home Valverde MD PCP: ORESTES Cano Status:ADM IN Location: [facility] NE229-9 HPI - General General Date of Admission: [...] medical marijuana. Patient denies any other symptoms. [facility] Medical History Essential (primary) hypertension Hyperlipidemia Nonobstructive [...] SCDs ordered. Charges/Coding Visit Charges Inpatient E&M: 06231 Init Hosp L3 08/05/222151 <Electronically signed by Home Valverde MD> Cosigner Signature (if applicable): CC: ORESTES Boyer; Dr. Home Valverde MD~ Signed [facility] Work Phone: 1(181) 530-838806-24-2023 Discharge summary Author Nico Arce [facility] August 05, 2022 9:02pm Note Date/Time August 05, 2022 6:09 pm [facility] Medical Records Department [address] [place] [address] Emergency Department Summary 08/05/22 MR#: [id number] Acct: [id number] Name: DONNA MARSH Rep #:[id number] : 1955 66 From: Monica VELÁSQUEZ PCP: ORESTES Cano Status:ADM IN Location: [facility] BG781-8 HPI <DIDIER Ohara - Last Filed: 08/05/22 [...] Fall History of Present Illness Informant: patient [facility] <DIDIER Ohara - Last Filed: 08/05/22 20:31> [facility] Medical History (Updated 08/05/22 @ 21:02 by [...] 96 94 Oxygen Delivery Method Room Air [facility] <DIDIER Ohara - Last Filed: 08/05/22 20:31> [facility] Narrative Medical decision making narrative: History gathered [...] 89.8 H Lymph % (Auto) 6.0 L Alcorn % (Auto) 3.2 Eos % (Auto) 0.2 [...] Arce MD - Last Filed: 08/05/22 21:02> [facility] Lab Data Attestation: I reviewed the [...] 89.8 H Lymph % (Auto) 6.0 L Alcorn % (Auto) 3.2 Eos % (Auto) 0.2 [...] 20:10 EDT Reading Location ID and State: [facility] / [place] Tel [phone], Service support , Rhythm Strip Rhythm Strip: Sinus Rhythm Rate: 90 Ectopy: None EKG Initial EKG: Attestation: I personally reviewed and interpreted this EKG as follows: Interpretation: Sinus Rhythm and No Acute Injury Pattern Management Discussion w/another healthcare provider: Hospitalist and Figure Refinisher And Repairer Treatment and Re-Evaluation Narrative: Seen and evaluated independently and in conjunction with physician social services assistant. Agree with notes above unless documented otherwise. [...] Rudy Boyer Disposition Disposition: Acute Care Hospital [facility] What to do if you have Problems For any increased pain, shortness of breath, bleeding, nausea or vomiting, chestpain, or any unexpected problems, contact your Primary Care Provider. Call [facility] ([phone]) or report to the closest Emergency Room. Call 911 if necessary. 08/05/222030 <Electronically signed by Monica VELÁSQUEZ> Cosigner Signature (if applicable): 08/05/222101 <Electronically signed by Nico Arce MD> CC: TRAUMA COORDINATOR-C Rudy Boyer ~ Signed [facility] Work Phone: 1(348) 709-843706-24-2023 Consult note Author Dereck Ramirez [facility] August 05, 2022 8:36pm Note Date/Time August 05, 2022 8:34 pm [facility] Medical Records Department [address] [place] [address] Consultation - Orthopedics 08/05/222026 MR#: [id number] Acct: [id number] Name: DONNA MARSH Rep #:[id number] : 1955 66 From: Dereck lynch DO PCP: ORESTES Cano Status:REG ER Location: [...] vomiting, chest pain or shortness of breath. [facility] Medical History (Updated 08/05/22 @ 20:33 by [...] 20:10 EDT Reading Location ID and State: [facility] / [place] Tel [phone], Service support , Assessment & Plan Assessment/Plan [...] Ramirez DO> Cosigner Signature (if applicable): CC: CRISTOPHER-Madelyn Boyer~ Signed [facility] Work Phone: 1(775) 509-777306-24-[address] Arce [facility] August 05, 2022 9:02pm Note Date/Time August 05, 2022 6:09 pm [facility] Medical Records Department [address] [place] [address] Emergency Department Summary 08/05/22 MR#: [id number] Acct: [id number] Name: DONNA MARSH Rep #:[id number] : 1955 66 From: Monica VELÁSQUEZ PCP: ORESTES Cano Status:[facility] <DIDIER Ohara - Last Filed: 08/05/22 [...] Fall History of Present Illness Informant: patient [facility] <DIDIER Ohara - Last Filed: 08/05/22 20:31> [facility] Medical History (Updated 08/05/22 @ 21:02 by [...] <DIDIER Ohara - Last Filed: 08/05/22 20:31> [facility] MDM Narrative Medical decision making narrative: History [...] 89.8 H Lymph % (Auto) 6.0 L Alcorn % (Auto) 3.2 Eos % (Auto) 0.2 [...] Arce MD - Last Filed: 08/05/22 21:02> [facility] Lab Data Attestation: I reviewed the [...] 89.8 H Lymph % (Auto) 6.0 L Alcorn % (Auto) 3.2 Eos % (Auto) 0.2 [...] Signed: Keaton DO Edwin at 20:10 EDT Reading Location ID and State: [facility] / [place] Tel [phone], Service support , Rhythm Strip Rhythm Strip: Sinus Rhythm Rate: 90 Ectopy: None EKG Initial EKG: Attestation: I personally reviewed and interpreted this EKG as follows: Interpretation: Sinus Rhythm and No Acute Injury Pattern Management Discussion w/another healthcare provider: Hospitalist and Figure Refinisher And Repairer Treatment and Re-Evaluation Narrative: Seen and evaluated independently and in conjunction with physician social services assistant. Agree with notes above unless documented otherwise. [...] Rudy Boyer Disposition Disposition: Acute Care Hospital [facility] What to do if you have Problems For any increased pain, shortness of breath, bleeding, nausea or vomiting, chestpain, or any unexpected problems, contact your Primary Care Provider. Call [facility] ([phone]) or report to the closest Emergency Room. Call 911 if necessary. 08/05/222030 <Electronically signed by Monica VELÁSQUEZ> Cosigner Signature (if applicable): 08/05/222101 <Electronically signed by Nico Arce MD> CC: ORESTES Boyer ~ Signed [facility] Work Phone: [phone]) 142-105806-15-2009 History of Past illness Narrative* Problem Noted Date Diagnosed Date Resolved Date Routine general medical exam ination at a health care facility 07/27/2008 08/03/2012 Overview: 08/28/06200707/27/08 Routine gynecological examination 07/27/2008 08/03/2012 Overview: declines Eating disorder, unspecified 06/25/2006 03/07/2018 documented as of this encounter (statuses as of 08/21/2022) [facility] History of Past illness Narrative* Problem Noted Date Diagnosed Date Resolved Date Routine general medical exam ination at a health care facility 07/27/2008 08/03/2012 Overview: 08/28/06200707/27/08 Routine gynecological examination 07/27/2008 08/03/2012 Overview: declines Eating disorder, unspecified 06/25/2006 03/07/2018 documented as of this encounter (statuses as of 09/19/2022) [facility] History of Past illness Narrative* Problem Noted Date Diagnosed Date Resolved Date Routine general medical exam ination at a health care facility 07/27/2008 08/03/2012 Overview: 08/28/06200707/27/08 Routine gynecological examination 07/27/2008 08/03/2012 Overview: declines Eating disorder, unspecified 06/25/2006 03/07/2018 documented as of this encounter (statuses as of 09/28/2022) [facility] History of Past illness Narrative* Problem Noted Date Diagnosed Date Resolved Date Routine general medical exam ination at a health care facility 07/27/2008 08/03/2012 Overview: 08/28/06200707/27/08 Routine gynecological examination 07/27/2008 08/03/2012 Overview: declines Eating disorder, unspecified 06/25/2006 03/07/2018 documented as of this encounter (statuses as of 10/08/2022) [facility] History of Past illness Narrative* Problem Noted Date Diagnosed Date Resolved Date Routine general medical exam ination at a health care facility 07/27/2008 08/03/2012 Overview: 08/28/06200707/27/08 Routine gynecological examination 07/27/2008 08/03/2012 Overview: declines Eating disorder, unspecified 06/25/2006 03/07/2018 documented as of this encounter (statuses as of 10/19/2022) [place] [id number] History of Past illness Narrative* Problem Noted Date Diagnosed Date Resolved Date Routine general medical exam ination at a [facility] care facility 07/27/2008 08/03/2012 Overview: 08/28/06200707/27/08 Routine gynecological examination 07/27/2008 08/03/2012 Overview: declines Eating disorder, unspecified 06/25/2006 03/07/2018 documented as of this encounter (statuses as of 10/20/2022) [facility] History of Past illness Narrative* Problem Noted Date Diagnosed Date Resolved Date Routine general medical exam ination at a health care facility 07/27/2008 08/03/2012 Overview: 08/28/06200707/27/08 Routine gynecological examination 07/27/2008 08/03/2012 Overview: declines Eating disorder, unspecified 06/25/2006 03/07/2018 documented as of this encounter (statuses as of 11/06/2022) [facility] History of Past illness Narrative* Problem Noted Date Diagnosed Date Resolved Date Routine general medical exam ination at a health care facility 07/27/2008 08/03/2012 Overview: 08/28/06200707/27/08 Routine gynecological examination 07/27/2008 08/03/2012 Overview: declines Eating disorder, unspecified 06/25/2006 03/07/2018 documented as of this encounter (statuses as of 11/07/2022) [facility] History of Past illness Narrative* Problem Noted Date Diagnosed Date Resolved Date Routine general medical exam ination at a health care facility 07/27/2008 08/03/2012 Overview: 08/28/06200707/27/08 Routine gynecological examination 07/27/2008 08/03/2012 Overview: declines Eating disorder, unspecified 06/25/2006 03/07/2018 documented as of this encounter (statuses as of 05/22/2023) [facility]. Ramirez [facility] August 05, 2022 8:36pm Note Date/Time August 05, 2022 8:34 pm [facility] Medical Records Department [address] [place] [address] Consultation - Orthopedics 08/05/222026 MR#: [id number] Acct: [id number] Name: DONNA MARSH Rep #:[id number] : 1955 66 From: Dereck lynch DO PCP: ORESTES Cano Status:REG ER Location: [...] vomiting, chest pain or shortness of breath. [facility] Medical History (Updated 08/05/22 @ 20:33 by [...] 20:07 EDT Reading Location ID and State: [facility] / [place] Tel [phone], Service support , Brain CT 08/05/22 18:20 IMPRESSION: Normal unenhanced CT scan of the brain. Electronically Signed: Keatonstaci Pineda at 18:45 EDT , Cervical Spine [...] Signature (if applicable): CC: ORESTES Boyer~ Signed [facility] Work Phone: Discharge summary Author Corinne Villalobos [facility] Note Date/Time November 08, 2024 1:54am [facility] Medical Records Department [address] [place] [address] Emergency Department Summary 11/08/24 MR#: [id number] Acct: [id number] Name: DONNA MARSH Rep #:[id number] : 1955 69 From: Corinne Villalobos MD PCP: ORESTES Cano Status:REG ER Location: ED HPI History of Present Illness Chief Complaint: Nausea/Vomiting Narrative Narrative: Patient is a 69-year-old female presenting to the emergency department for abdominal pain, nausea and vomiting for 2 days. Patient is a very poor historian. She has a past medical history of diabetes, hypertension, NSTEMI, encephalopathy, opioid dependence, pancreatitis, UTI, CKD. Patient reports that2 days ago she had a fall. She is unable to tell me specifics about why she fell. She is on chronic anticoagulation with Eliquis. [facility] Medical History Chronic anticoagulation Paroxysmal atrial fibrillation Erythrocytosis Transaminitis Hypercalcemia Frequent falls Acute cystitis without hematuria Septic encephalopathy Closed L3 vertebral fracture Acute UTI DURAN (acute kidney injury) Sepsis High anion gap metabolic acidosis Acute kidney injury Candidal intertrigo Acute UTI Recurrent falls Acute delirium Altered level of consciousness Acute encephalopathy Myocardial infarction type 2 Non-ST elevation IL (NSTEMI) Hiatal hernia Irritable bowel Back pain [...] (vitamin D2) 1,250 1,250 mcg PO SA raghav min 04/20/24 05/10/24 History mcg (50,000 unit) capsule (Vitamin D2) fexofenadine 180 mg tablet 180 mg PO DAILY allergies 0 04/20/24 Unknown History glipizide 10 mg tablet 10 mg PO DAILY diabetes 11/06 Unknown History atorvastatin 20 mg tablet 20 mg PO QHS cholesterol #0 tabs 04/24/24 05/12/24 Rx carvedilol 3.125 mg tablet 3.125 mg PO BIDCM blood pre ssure 04/24/24 05/13/24 Rx #0 tabs fluoxetine 40 mg capsule 40 mg PO BID #0 caps 5 Unknown Rx gabapentin 100 mg capsule 100 mg PO TID nerve pain #0 caps 04/24/24 Unknown Rx pantoprazole 40 mg tablet,delayed 40 mg PO BID reflux #0 tabs 04/24/24 Unknown Rx release tolterodine 4 mg capsule,extended 4 mg PO DAILY #0 cap s 04/24/24 Unknown Rx release 24 hr acetaminophen 325 mg tablet 650 mg PO Q4H PRN Fever, p ain 05/13/24 05/12/24 History -11/21 buspirone 15 mg tablet 15 mg PO BID mental health 0 05/13/24 Unknown History donepezil 10 mg tablet 10 mg PO DAILY memory Unknown History mirabegron 50 mg tablet,extended 50 mg PO DAILY bladde r 05/13/24 Unknown History release 24 hr Remove Patch 2 patch topical DAILY@2200 # #0 05/16/24 Unknown Rx aluminum-mag hydroxide-simethicone 30 ml PO Q6H PRN WV N Gastric 05/16/24 Unknown Rx 400 mg-400 mg-40 mg/5 mL oral susp Burning #0 mL (Mag-Al Plus Extra Strength) amlodipine 10 mg tablet 10 mg PO DAILY #60 tabs 06/06 Unknown Rx hydroxyzine pamoate 25 mg capsule 25 mg PO TID PRN PRN severe 05/16/24 Unknown Rx anxiety #0 caps insulin lispro 100 unit/mL See Protocol subcut ACHS #0 mL 05/16/24 Unknown Rx subcutaneous pen (Humalog KwikPen (U-100) Insulin) lidocaine 5 % topical patch 2 patch topical DAILY #0 e a 05/16/24 Unknown Rx melatonin 3 mg tablet 3 mg PO QHS PRN PRN Insomnia #0 05/16/24 Unknown Rx tabs potassium chloride 20 mEq 20 meq PO BIDCM #0 tabs 06/06 Unknown Rx tablet,extended release(part/cryst) sennosides 8.6 mg-docusate sodium 2 tab PO BID PRN PRN Constipation 05/16/24 Unknown Rx 50 mg tablet (Stimulant Laxative #0 tabs Plus) tizanidine 2 mg tablet 2 mg PO Q8H PRN PRN muscle 0 05/16/24 Unknown Rx spasms/strain #0 tabs nitrofurantoin 1 cap PO Q12.TCU 05/19/24 Un known History monohydrate/macrocrystals 100 mg capsule oxybutynin chloride 15 mg PO 05/19/24 Unknown History tablet,extended release 24 hr tramadol 50 mg tablet 50 mg PO Q6H PRN pain 3 days #12 05/19/24 Unknown Rx tabs sulfamethoxazole 800 1 tab PO BID #2 tabs 09/05/ 5 Unknown Rx mg-trimethoprim 160 mg tablet (Bactrim DS) Allergy/AdvReac Type Severity Reaction Status Date / Time morphine Allergy Severe Other Verified 11/07/24 22:07 codeine Allergy Itching Verified 11/07/24 22:07 fentanyl AdvReac confusion Verified 11/07/24 22:07 naproxen AdvReac Other Verified 11/07/24 22:07 Family History Mother Cancer skin Father Cancer [...] servings: 1 ROS ROS ED ROS Narrative See HPI EXAM Physical Exam Narrative Exam Narrative: Vital signs: Reviewed General: Alert and oriented x 3. No acute distress. Chronically ill-appearing HEENT: Head is normocephalic and atraumatic. No lacerations, abrasions or cephalhematoma to the head or face. There is left-sided periorbital ecchymosis. Appears to be subacute. No significant periorbital swelling. No conjunctival hemorrhage or conjunctival injection. Extraocular movements intact. Sinuses nontender, pupils equal round and reactive. Nares are patent. No septal hematoma. Oropharynx and throat exams normal. No oropharyngeal trauma. Neck: Supple without lymphadenopathy nontender. No midline cervical spinal tenderness to palpation. No step-offs or deformities. Cardiovascular: Regular rate and rhythm, no murmurs. No rubs or gallops. Normal S1 and S2 Respiratory: Clear to auscultation bilaterally. No wheezes, rales, rhonchi Chest: Chest wall is atraumatic and nontender to palpation. No ecchymosis, erythema or crepitus of the chest wall. Abdominal: Soft and tenderness palpation in the epigastric region. Otherwise abdomen is nontender to palpation. normal bowel sounds. No guarding or rebound. Nonsurgical abdomen Extremities: No tenderness. No bruising. Normal range of motion. Normal sensation. Skin: No rash or redness. Neurological: Cranial nerves II through XII are grossly intact. Normal strengthand sensation. Normal cerebellar function The rest of the physical exam is unremarkable Const Vital Signs: 11/07/24 22:09 11/07/24 22:12 11/07/24 22:54 Temperature 98.5 F 98.5 F Temperature Source Oral Oral Pulse Rate 122 H 124 H Respiratory Rate 20 H 20 H Respiratory Effort Short of Breath Labored Respiratory Pattern Tachypnea Blood Pressure 183/97 H 183/97 H Blood Pressure Mean 125 125 Pulse Ox 100 100 Oxygen Delivery Method Room Air Room Air 11/07/24 23:00 11/08/24 00:00 11/08/24 01:00 Temperature 98.5 F 98.5 F 98.9 F Temperature Source Oral Oral Oral Pulse Rate 102 H 96 115 H Respiratory Rate 20 H 18 20 H Respiratory Effort Respiratory Pattern Blood Pressure 180/89 H 179/79 H 171/97 H Blood Pressure Mean 119 112 121 Pulse Ox 100 93 100 Oxygen Delivery Method Room Air Room Air Room Air MDM MDM MDM Narrative Medical decision making narrative: Patient is a 69-year-old female presenting to the emergency department for abdominal pain, nausea and vomiting for the past 2 days. Patient was seen and examined. Vitals are stable. She is tachycardic on initial evaluation in the 120s to 130s. Mildly hypertensive at 183/97. Mildly tachypneic at 20. She is afebrile saturating 100% on room air. Differential includes but is not limited to: Pancreatitis, cholecystitis, colitis, UTI, gastroenteritis, DKA, sepsis Patient given fluids and Zofran for symptomatic control. CBC with no leukocytosis and hemoglobin is 16.5. CMP with bicarb of 14.7 and anion gap of 26, glucose of 283. DKA protocol started. Ketones and VBG added on. Lipase within normal limits. Ammonia within normal limits. EKG shows sinus tachycardia with left axis deviation. No dysrhythmia. There appears to be some ST depression in V4 through V6. No ST elevation. Initial troponin of 13. Urinalysis with glucose and ketones consistent with her DKA. No evidence of UTI. CT brain with no acute findings. CT cervical spine with no acute findings. CT abdomen pelvis with some mild bilateral bibasilar atelectatic pulmonary changes. Uncomplicated colonic diverticulosis, gastroparesis/gastritis. No acute findings. Clinical impression: DKA Nausea vomiting Abdominal pain History & Record Review Discussion w/independent historian: Patient Additional record(s) reviewed:: Prior labs Lab Data Attestation: I reviewed the patient's lab results. Labs: Laboratory Results - last 24 hr 11/07/24 11/07/24 11/07/24 22:35 22:40 23:39 WBC 10.7 RBC 5.81 H Hgb 16.5 H Hct 50.4 H MCV 86.7 MCH 28.4 MCHC 32.7 RDW Std Deviation 42.1 RDW Coeff of Gerhard 13.2 Plt Count 400 MPV 9.7 Immature Gran % (Auto) 0.400 Neut % (Auto) 90.1 H Lymph % (Auto) 7.3 L Alcorn % (Auto) 1.9 Eos % (Auto) 0.1 Baso % (Auto) 0.2 Absolute Neuts (auto) 9.6 H Absolute Lymphs (auto) 0.78 L Nucleated RBC % 0 Sodium 139 Potassium 4.3 Chloride 98 Carbon Dioxide 14.7 L Anion Gap 26 H BUN 13 Creatinine 0.87 Est GFR (MDRD) Non-Af 71 BUN/Creatinine Ratio 15.4 Glucose 283 H Lactic Acid Cancelled 1.2 Calcium 10.0 Magnesium 2.2 Total Bilirubin 1.20 AST 34 H ALT 14 Alkaline Phosphatase 126 H Ammonia 20.7 Troponin T High Sens 13 D Total Protein 8.0 Albumin 4.8 Globulin 3.2 Albumin/Globulin Ratio 1.5 Lipase 14 b-Hydroxybutyric mmol/L 3.1 H Urine Color Straw Urine Clarity Clear Urine pH 6.0 Ur Specific Bude 1.015 Urine Protein 100 H Urine Glucose (UA) 250 H Urine Ketones 50 H Urine Occult Blood 25 H Urine Nitrite Negative Urine Bilirubin Negative Urine Urobilinogen Normal Ur Leukocyte Esterase Negative Urine RBC 0-5 SEEN Urine WBC 0-5 SEEN Ur Squamous Epith Cells 0-5 SEEN Urine Bacteria 0 SEEN Urine Mucus 0 SEEN ABG Data ABG results: ABG 11/08/24 01:33 Specimen Type RADHA Sample Site Not entered VBG pH 7.65 H* VBG pO2 61 H VBG HCO3 16 L VBG Total CO2 16 L VBG O2 Sat (Calc) 96 H VBG Base Excess -5 L POC Mix VBG pCO2 Pt Tmp 14.6 L* O2 Delivery Device Room Air Crit Call To/Read Back Yes Blood Gas Notified Whom Ilsa Blood Gas Notified Time 01:34:49 Radiography Diagnostic Testing: Clinical Impression(s) from Imaging Studies Abdomen/Pelvis CT 11/08/24 00:00 IMPRESSION: Mild bilateral basilar atelectatic pulmonary changes. Unremarkable metallic prosthesis of the hips. Chronic deformities of the pubic bones. Chronic compression deformities of the vertebral bodies, unchanged. Moderate osteopenia. Uncomplicated colonic diverticulosis. Gastroparesis/gastritis. Bilateral scattered simple renal cysts with the largest measuring 3.5 cm. Reading Location: [facility] Brain CT 11/08/24 00:00 IMPRESSION: No intracerebral or extra axial hemorrhage. No acute cerebrovascular insult. If clinical symptoms persist, further evaluation with MRI may be considered as clinically warranted. Bilateral cerebral microvascular ischemic changes with brain involutional changes. stable. [facility] Cerv[facility] Spine CT 11/08/24 00:00 IMPRESSION: Stable study findings. No newly developed acute vertebral fractures, structural collapse or dislocation. Reading Location: [place] [address] Discharge Plan Triage Chief Complaint: Nausea/Vomiting ED Provider: Corinne Villalobos Dx/Rx/DC Orders Prescriptions: No Action Eliquis 2.5 mg tablet 2.5 mg PO [...] PO Q4H PRN (Reason: Fever, pain 1-11/21) lidocaine 5 % Adhesive Patch,Medicated 2 patch [...] 10 mg PO DAILY Qty: 60 0RF oxybutynin chloride 15 mg tablet extended release 24hr PO nitrofurantoin monohyd/m-cryst 100 mg capsule 1 cap PO Q12.TCU tramadol 50 mg tablet 50 mg PO Q6H PRN (Reason: pain) 3 Days Qty: 12 0RF sulfamethoxazole-trimethoprim [Bactrim DS] 800-160 mg tablet 1 tab PO BID Qty: 2 0RF Primary Care Provider: Rudy Boyer Referrals: Rudy Boyer NP-C [Primary Care Provider, Family Practice] Print Language: Turkish What to do if you have Problems For any increased pain, shortness of breath, bleeding, nausea or vomiting, chestpain, or any unexpected problems, contact your Primary Care Provider. Call [facility] ([phone]) or report to the closest Emergency Room. Call 911 if necessary. 11/08/24 0154 <Electronically signed by Corinne Villalobos MD> Cosigner Signature (if applicable): CC: ORESTES Boyer ~ Signed [facility] Work Phone: Discharge summary Author Anuja Murcia [facility] Note Date/Time November 14, 2024 2: 45pm [facility] Medical Records Department [address] [place] [address] Discharge Summary 11/14/24 1435 MR#: [id number] Acct: [id number] Name: DONNA MARSH Rep #:[id number] : 1955 69 From: Anuja Murcia MD PCP: ORESTES Cano Status:ADM IN Location: [place] [address] Providers Date of Admission: 11/08/24 Date of Discharge: 11/14/24 Primary Care Physician: ORESTES Cano Consultations 11/13/24 18:38 Consult: Onc/Wound/market development specialist Routine Comment: Reason for Consult:: barbara heel wounds Reason For Visit: DKA, AMS AND HYPERTENSIVE URGENCY Diagnosis Discharge Diagnosis (1) DKA (diabetic ketoacidoses): Status: Acute Code(s): E11.10 - Type 2 diabetes mellitus with ketoacidosis without coma Qualifiers: Diabetes mellitus type: type 2 Diabetes mellitus complication detail: without coma Qualified Code(s): E11.10 - Type 2 diabetes mellitus with ketoacidosis without coma (2) Hypertensive urgency: Status: Acute Code(s): I16.0 - Hypertensive urgency (3) Acute metabolic encephalopathy: Status: Acute Code(s): G93.41 - Metabolic encephalopathy Plan Patient is a 69-year-old lady admitted with altered mental status with nausea and vomiting and multiple falls diagnosis of diabetic ketoacidosis made admittedto the intensive care unit subsequently managed and stabilized and transferred to [facility] 1. Diabetic ketoacidosis in the setting of diabetes mellitus type 2 ? Managed per protocol with IV fluids and insulin and correction of electrolyte abnormalities. DKA resolved patient transferred to [facility]. Currently on long- acting insulin with Accu-Cheks AC and at bedtime with sliding scale coverage. Patient oral 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 agents on hold ? 11/14/2024; patient blood glucose control remains labile currently on Accu- Cheks AC and at bedtime with sliding scale coverage 2. Acute metabolic encephalopathy ? Secondary to DKA ? 11/13/2024; patient underwent MRI the day prior findings included 1. No evidence of acute intracranial pathology. 2. Mild cerebral atrophy.3. Chronic lacunar infarction in the right frontal lobe. ? 11/14/2024; patient back to baseline 3. Acute hypertensive urgency ? Patient blood pressure has since stabilized following admission ? 11/13/2024; subsequent adjustment made to patient antihypertensive regimen ? 11/14/2024; patient blood pressure control improving 4. Physical deconditioning secondary to debility following the fall ? Requested for PT OT eval and medical social worker to assist with discharge planning ? 11/14/2024; patient declined to go to a group home facility decision was therefore made to discharge patient home with home health 5. Acute kidney injury ? Creatinine on admission was 1.05. Patient kidney function has improved to 0.66 6. Dyslipidemia ?Patient is on statin therapy, continued at home dose 7. History of peptic ulcer disease ?EGD performed on 01/04/2024 showed ulcers in the esophagus, duodenum, and gastric areas. Patient is on PPI 8. History of Takotsubo cardiomyopathy ? Remains stable 9. History of renal artery stenosis ? Remains stable 10. Paroxysmal atrial fibrillation ? Rate controlled on carvedilol and systemic anticoagulation with apixaban 11. Depression with anxiety ? Patient is on BuSpar as well as fluoxetine continue 12. Obstructive sleep apnea ? Consistent use of PAP therapy encouraged 13. Dementia ? With behavioral agitation. Stated by patient HIMANSHU. Patient is on donepezil continued 14. DVT prophylaxis ? Patient is on apixaban Time spent in the patient's overall evaluation,decision-making process, review of diagnostic data, adjustment of management, discussion with other providers, nursing nursing and ancillary staff involved in patient's care documentation, 35 minutes Medications at Discharge Home Medications apixaban 2.5 mg tablet (Eliquis) 2.5 mg PO BID blood thinner 02/14/24 ergocalciferol (vitamin D2) 1,250 mcg (50,000 unit) capsule (Vitamin D2) 1,250 mcg PO SA vitamin 04/20/24 fexofenadine 180 mg tablet 180 mg PO DAILY allergies 04/20/24 glipizide 10 mg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 reconstruction series were provided. One or more dose reduction techniques were used (e.g., Automated exposure control, adjustment of the mA and/or kV according to patient size, use of iterative reconstruction technique. RADIATION DOSE SUMMARY: CTDlvol: 65 mGy DLP: 1778 mGycm FINDINGS: Accentuated bilateral cerebral periventricular deep white matter hypodensities suggesting hypoperfusion. Garcia-white matter differentiation is maintained. Bilateral basal ganglia fine calcifications (physiological). Normal CT appearance of the posterior fossa structures. No intracerebral or extra axial hemorrhage. No definite calvarial fractures. Prominent ventricular system, cortical sulci and extra-axial CSF spaces No midline shifts or deformity. The osseous structures in the skull base are unremarkable. Small calcific densities related to the calvarial bones inner table. The scanned paranasal sinuses are unremarkable. Vascular atheromatous calcifications. CT/Brain/Head without Contrast IMPRESSION: No intracerebral or extra axial hemorrhage. No acute cerebrovascular insult. If clinical symptoms persist, further evaluation with MRI may be considered as clinically warranted. Bilateral cerebral microvascular ischemic changes with brain involutional changes. stable. Reading Location: [place] [address] CC: ORESTES Boyer; Dr. Corinne Villalobos MD ~ Inspector [employer]: Signed ----- [facility] Imaging Services [address] [place], [place] [id number] Spine Cervical without Contras MR#: [id number] Acct: [id number] Name: DONNA MARSH Rep #: [id number] : 1955 F 69 From: Carri Bettencourt MD PCP: ORESTES Cano Status: REG ER Study: Spine Cervical without Contras Date of Exam: 11/08/24 Exam# [id number] Ordering Dr: Corinne Villalobos MD PROCEDURE: SPINE CERVICAL WITHOUT CONTRAS 11/08/2024 REASON FOR EXAM: FALL TECHNIQUE: Procedure Code: CTSPC Modality: CT Procedure: SPINE CERVICAL WITHOUT CONTRAS Coronal and Sagittal reconstruction series were provided. One or more dose reduction techniques were used (e.g., Automated exposure control, adjustment of the mA and/or kV according to patient size, use of iterative reconstruction technique. RADIATION DOSE SUMMARY: CTDI Vol 32.56 mGy DLP :745.4 mGycm COMPARISON: 20-Apr-2024 FINDINGS: Straightened cervical curve denoting myospasm. C2 and C3 bony fusion. Stable relative reduced C3 vertebral body height showing mothed osseous texture and mild posterior cortical bulge The examined vertebral bodies show no structural collapse or posterior neural elements fractures. Intact atlanto-axial interval. Degenerative changes of the atlanto-odontoid articulation with related capsular calcifications. Cervical spondylodegenerative changes evident by marginal osteophytic lipping and multilevel subchondral sclerosis of the examined vertebral end plates with multilevel disc spaces narrowing. Multilevel degenerative unco-vertebral arthropathy with osteophytes formation seen encroaching upon the corresponding neural exit foramina. Multilevel degenerative facet arthropathy. Multilevel diffuse disc bulges with posterior osteophytes and annular calcifications indenting the theca and encroaching upon the related neural exit foramina. No paraspinal masses. Carotid atheromatous calcifications. CT/Spine Cervical without Contras IMPRESSION: Stable study findings. No newly developed acute vertebral fractures, structural collapse or dislocation. Reading Location: [place] [address] CC: TRAUMA COORDINATORJarad Boyer; Dr. Corinne Villalobos MD ~ Inspector [employer]: Signed ----- [facility] Imaging Services [address] [place] [address] Abdomen/Pelvis W IV Cont ONLY MR#: [id number] Acct: [id number] Name: DONNA MARSH Rep #: [id number] : 1955 F 69 From: Carri Bettencourt MD PCP: ORESTES Cano Status: REG ER Study: Abdomen/Pelvis W IV Cont ONLY Date of Exam: 11/08/24 Exam# [id number] Ordering Dr: Corinne Villalobos MD PROCEDURE: ABDOMEN/PELVIS W IV CONT ONLY 11/08/2024 REASON FOR EXAM: ABD PAIN./N/V TECHNIQUE: Procedure Code: CTABDPELIV Modality: CT Procedure: ABDOMEN/PELVIS W IV CONT ONLY Coronal and Sagittal reconstruction series were provided. CONTRAST: OMNIPAQUE 350 VOLUME: 100 mL One or more dose reduction techniques were used (e.g., Automated exposure control, adjustment of the mA and/or kV according to patient size, use of iterative reconstruction technique. RADIATION DOSE SUMMARY: CTDlvol: 16.5 mGy DLP: 630 mGycm COMPARISON: CT scan on 09/01/2024. FINDINGS: Mild bilateral basilar atelectatic pulmonary changes. Unremarkable metallic prosthesis of the hips. Chronic deformities of the pubic bones. Chronic compression deformities of the vertebral bodies, unchanged. Moderate osteopenia. Uncomplicated colonic diverticulosis. Gastroparesis/gastritis. Bilateral scattered simple renal cysts with the largest measuring 3.5 cm. Normal liver. Normal gallbladder and extrahepatic biliary system. Normal spleen. Normal pancreas. Normal bilateral adrenal glands. Normal size of the right kidney. There is no right renal mass. There are no right renal calculi. There is no right hydronephrosis. Normal visualized right ureter. Normal size of the left kidney. There is no left renal mass. There are no leftrenal calculi. There is no left hydronephrosis. Normal visualized left ureter Normal small intestine. The appendix is not visualized. There is no demonstrated peritoneal fluid. Calcified atheromatous plaques of the abdominal aorta. Normal inferior vena cava. Normal retroperitoneum. Normal urinary bladder. There is no pelvic mass lesion or lymphadenopathy. There is no pelvic fluid. CT/Abdomen/Pelvis W IV Cont ONLY IMPRESSION: Mild bilateral basilar atelectatic pulmonary changes. Unremarkable metallic prosthesis of the hips. Chronic deformities of the pubic bones. Chronic compression deformities of the vertebral bodies, unchanged. Moderate osteopenia. Uncomplicated colonic diverticulosis. Gastroparesis/gastritis. Bilateral scattered simple renal cysts with the largest measuring 3.5 cm. Reading Location: [place] [address] CC: ORESTES Boyer; Dr. Corinne Villalobos MD ~ Inspector [employer]: Signed Assessment & Plan Assessment/Plan (1) DKA (diabetic ketoacidoses): QUALIFIERS: Diabetes mellitus complication detail: without coma Diabetes mellitus type: type 2 Qualified Code(s): E11.10 - Type 2 diabetes mellitus with ketoacidosis without coma (2) Hypertensive urgency: (3) Acute metabolic encephalopathy: (4) Chronic dementia: (5) Paroxysmal atrial fibrillation: (6) Chronic anticoagulation: (7) Bipolar disease, chronic: PLAN: Plan 1. Hyperglycemia of 283 mg deciliter with a corresponding elevated beta hydroxybutyric acid of 3.1 mmol/L with an anion gap of 26 present on admission consistent with DKA in the setting of previously known DM-2; of unknown control on glipizide plus sliding scale insulin TID AC - Admit to ICU. Continue IV insulin drip begun in ER. Give vigorous volume resuscitation and recheck BMP q.4 hours as per DKA protocol. Keep strict NPO. 2. Hypertensive Urgency with elevated blood pressure of 183/97 mmHg complicating # 1 - Give hydralazine IV prn for systolic blood pressure of > 160 mmHg. 3. Acute Metabolic Encephalopathy likely due primarily to #1 in the setting of known Chronic Dementia - Check TSH, B12, Folate, MICHELLE and UDS. 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 Restart donepezil when able. 4. Recent admission here from September 01, 2024 to September 05, 2024 for treatment of acute cystitis with fever, severe leukocytosis of 23.7 K and lactic acidosis of 2.2 mmol/L consistent with suspected sepsis with septic encephalopathy and newlydiagnosed L3 compression fracture at that time with [place] - Noted with patient's likely struggling to take care of her at home with patient also not getting her insulin and blood pressure medications as prescribed resulting in #1 - #3. 5. Paroxysmal atrial fibrillation; on apixaban adding to the medical complexityof #1 - #4 - Hold apixaban while NPO and replace with full-dose enoxaparin. 6. Bipolar disorder; on fluoxetine BID, buspirone plus as needed hydroxyzine 3 times daily as needed - Hold home regimen for now. 7. Hyperlipidemia; on atorvastatin - Restart statin when patient resumes oral intake. 8. Former tobacco abuse - Noted. 9. CAD; s/p non-STEMI (2018) - Noted. 10. History of Takotsubo cardiomyopathy - Noted. 11. History of renal artery stenosis - Noted. 12. History of psoriatic arthritis - Stable with no evidence of acute flare. 13. Diabetic neuropathy; on gabapentin 3 times daily - Restart gabapentin when patient can tolerate oral intake. 14. BURKE; on CPAP - Nocturnal CPAP ordered. 15. OAB; on mirabegron, oxybutynin and tolterodine - Restart when able. 16. Seasonal allergies; on fexofenadine - Hold this for now. 17. RLS - Stable. 18. History of muscle spasms; on tizanidine 3 times daily as needed - Restart when able. 19. GERD; with hiatal hernia and history of PUD (12/2023) - Continue PPI IV. 20. OA; with history of Left hip fracture, history of back surgery and recurrent falls with recent fall with intractable back pain on May 17, 2024 causing patient to be admitted here; on tramadol every 6 hours - Hold all oral medications and minimize opiates as much as possible in an effort to allow sensorium to clear. 21. DVT prophylaxis - Patient on full-dose enoxaparin as outlined in #5. Total time: Approximately (but not less than) 75 minutes. Update: Patient has a stroke alert called last night due to worsening confusion with patient evaluated by [facility] telneurology who though her symptoms were metabolic in origin and likely related to withdrawal from pain medications and rebound hypertension. Also her follow-up head CT without contrast revealed bilateral cerebral microvascular ischemic changes with brain involutional changes that are stable. She was then treated with buprenorphine sublingual in addition to labetalol 10 mg IV once with POSTAL INSPECTOR updated with plan. Charges/Coding Visit Charges Inpatient E&M: 09585 Init Hosp L3 11/08/24 0742 <Electronically signed by Anuja Noel DO> Cosigner Signature (if applicable): CC: TRAUMA COORDINATORJarad Boyer; Dr. Anuja Noel DO~ Signed [facility] Work Phone: Progress note Author Dereck Youssef [facility] Note Date/Time November 10, 2024 10:03am [facility] Medical Records Department [address] [place] [address] Progress Note - Hospitalist 11/09/24 0993 MR#: [id number] Acct: [id number] Name: DONNA MARSH Rep #:[id number] : 1955 69 From: Dereck valdovinos MD PCP: NIYAH CanoC Status:ADM IN Location: MS3 [id number] Subjective Subjective Doing well, no issues overnight. Still confused Objective Data Objective Data Vital Signs: Vital Signs Temp Pulse Resp BP Pulse Ox O2 Del Method 99 F 119 H 21 H 126/80 H 93 Room Air 11/09/24 05:00 11/09/24 07:00 11/09/24 07:00 11/09/24 07:00 11/09/24 07:00 11/09/24 07:00 Oxygen Delivery Method Room Air Weight: 146 lb 11.2 oz Body Mass Index (BMI) 25.0 Intake & Output: Intake and Output for Last 24 Hours 11/08/24 11/09/24 11/10/24 03:59 03:59 03:59 Intake Total 1102.2 / 1104.81 2187.83 / 2187.83 Output Total 1475 / 1475 200 / 200 Balance 1102.2 / 1104.81 712.83 / 712.83 -200 / -200 Lab / Micro Data 11/10/24 05:49 11/10/24 05:49 Labs: Laboratory Results - last 24 hr 11/08/24 09:50: Sodium 142, Potassium 2.9 L, Chloride 107, Carbon Dioxide 21.7, Anion Gap 14, BUN 16, Creatinine 1.05, Estim Creat Clear Calc 42.44 L, Est GFR (MDRD) Non-Af 57 L, BUN/Creatinine Ratio 14.9, Glucose 179 H, Calcium 9.4, Phosphorus 3.2, Magnesium 1.9 11/08/24 10:52: POC Glucose 87 11/08/24 12:04: POC Glucose 67 L 11/08/24 13:08: POC Glucose 115 H 11/08/24 13:52: POC Glucose 248 H 11/08/24 13:55: Sodium 141, Potassium 3.2 L, Chloride 105, Carbon Dioxide 21.0, Anion Gap 15, Phosphorus 4.0, Magnesium 2.1 11/08/24 16:03: POC Glucose 140 H 11/08/24 21:38: POC Glucose 170 H 11/09/24 03:15: WBC 15.4 H, RBC 4.40, Hgb 12.6, Hct 39.0, MCV 88.6, MCH 28.6, MCHC 32.3, RDW Std Deviation 45.3 H, RDW Coeff of Gerhard 14.0, Plt Count 358, MPV 9.0, Immature Gran % (Auto) 0.500, Neut % (Auto) 73.4 H, Lymph % (Auto) 17.9 L, Alcorn % (Auto) 7.3, Eos % (Auto) 0.8, Baso % (Auto) 0.1, Absolute Neuts (auto) 11.3 H, Absolute Lymphs (auto) 2.76, Nucleated RBC % 0, Sodium 140, Potassium 3.8, Chloride 106, Carbon Dioxide 20.6 L, Anion Gap 14, BUN 27 H, Creatinine 1.18, Estim Creat Clear Calc 37.76 L, Est GFR (MDRD) Non-Af 49 L, BUN/CreatinineRatio 23.2 H, Glucose 182 H, Calcium 9.2 Micro: Microbiology 11/08/24 03:15 Mucosa - Nasopharyngeal Respiratory Panel (PCR) - Final Physical Exam Narrative General: Alert, disoriented, Cooperative, No apparent distress HEENT: Atraumatic, PERRLA, EOMI, Normocephalic, ecchymosis over her left eye Oral: Moist Mucosa Neck: Supple, No JVD Lungs: Diminished, Normal air movement, No rhonchi, No wheeze, No rales Cardiovascular: Regular rate, Regular Rhythm, Normal S1, Normal S2, No murmurs Abdomen: Soft, Non Tender, Non-Distended, No Hepato-splenomegaly Extremities: No edema, Capillary Refill Less than 3 Seconds Skin: No rashes, No breakdown Musculoskeletal: No Tenderness to Palpation of Joints or Extremities Neurological: No focal neurological deficits, Motor Exam 5/5 strength throughout, Sensory exam intact to light touch and pain Psych/Mental Status: Normal Affect, Appropriate disoriented Assessment & Plan Assessment/Plan (1) DKA (diabetic ketoacidoses): QUALIFIERS: Diabetes mellitus complication detail: without coma Diabetes mellitus type: type 2 Qualified Code(s): E11.10 - Type 2 diabetes mellitus with ketoacidosis without coma (2) Hypertensive urgency: (3) Acute metabolic encephalopathy: PLAN: Plan 1. DKA in the setting of type 2 diabetes with diabetic neuropathy ? Her gap's are closed x 2 ? Transition to subcu insulin and can transfer out of the ICU ? Will attempt to restart gabapentin during her hospitalization 2. Hypertensive urgency/HLD/paroxysmal A-fib ? Continue with statin ? Continue with Eliquis ? Will monitor make adjustments as necessary ? Can resume her home medications 3. Acute metabolic encephalopathy in the setting of dementia ? Her altered mental status is likely related to her DKA and that she does have chronic dementia ? There was a concern for possible stroke, NIH of 1 for aphasia ? Uncertain that continued workup for stroke is warranted 4. Bipolar ? Continue with her home meds ? Stable 5. GERD ? Stable ? Continue with PPI DVT: Eliquis Charges/Coding Visit Charges Inpatient E&M: 05663 Subs Hosp L2 11/10/24 1003 <Electronically signed by Dereck Youssef MD> Cosigner Signature (if applicable): CC: ~ Signed [facility] Work Phone: Progress note Author Dereck Youssef [facility] Note Date/Time November 10, 2024 10:09am [facility] Medical Records Department [address] [place] [address] Progress Note - Hospitalist 11/10/24 1004 MR#: [id number] Acct: [id number] Name: DONNA MARSH Rep #:[id number] : 1955 69 From: Dereck valdovinos MD PCP: ORESTES Cano Status:ADM IN Location: [place] [address] Subjective Subjective Remains unchanged from yesterday Objective Data Objective Data Vital Signs: Vital Signs Temp Pulse Resp BP Pulse Ox O2 Del Method 97.6 F L 88 16 146/83 H 98 Room Air 11/10/24 09:09 11/10/24 09:09 11/10/24 09:09 11/10/24 09:09 11/10/24 09:09 11/10/24 09:09 Oxygen Delivery Method Room Air Weight: 138 lb 14.259 oz Body Mass Index (BMI) 23.7 Intake & Output: Intake and Output for Last 24 Hours 11/09/24 11/10/24 11/11/24 03:59 03:59 03:59 Intake Total 2187.83 / 2187.83 1348.75 / 1348.75 Output Total 1475 / 1475 725 / 725 200 / 200 Balance 712.83 / 712.83 623.75 / 623.75 -180 / -180 Lab / Micro Data 11/10/24 05:49 11/10/24 05:49 Labs: Laboratory Results - last 24 hr 11/08/24 09:50: POC Glucose 153 H 11/09/24 09:30: POC Glucose 161 H 11/09/24 11:26: POC Glucose 169 H 11/09/24 17:20: POC Glucose 119 H 11/09/24 22:27: POC Glucose 158 H 11/10/24 05:49: WBC 11.7 H, RBC 4.01 L, Hgb 11.7 L, Hct 35.0 L, MCV 87.3, MCH 29.2, MCHC 33.4, RDW Std Deviation 45.6 H, RDW Coeff of Gerhard 14.0, Plt Count 292,MPV 9.2, Immature Gran % (Auto) 0.300, Neut % (Auto) 62.6, Lymph % (Auto) 29.0, Alcorn % (Auto) 6.1, Eos % (Auto) 1.8, Baso % (Auto) 0.2, Absolute Neuts (auto) 7.3, Absolute Lymphs (auto) 3.40, Nucleated RBC % 0, Sodium 142, Potassium 3.7, Chloride 110 H, Carbon Dioxide 20.3 L, Anion Gap 11, BUN 27 H, Creatinine 0.82, Estim Creat Clear Calc 54.34, Est GFR (MDRD) Non-Af 77, BUN/Creatinine Ratio 32.6 H, Glucose 135 H, Calcium 8.9 11/10/24 06:56: POC Glucose 132 H Micro: Microbiology 11/08/24 03:15 Mucosa - Nasopharyngeal Respiratory Panel (PCR) - Final Physical Exam Narrative General: Alert, disoriented, Cooperative, No apparent distress HEENT: Atraumatic, PERRLA, EOMI, Normocephalic, ecchymosis over her left eye Oral: Moist Mucosa Neck: Supple, No JVD Lungs: Diminished, Normal air movement, No rhonchi, No wheeze, No rales Cardiovascular: Regular rate, Regular Rhythm, Normal S1, Normal S2, No murmurs Abdomen: Soft, Non Tender, Non-Distended, No Hepato-splenomegaly Extremities: No edema, Capillary Refill Less than 3 Seconds Skin: No rashes, No breakdown Musculoskeletal: No Tenderness to Palpation of Joints or Extremities Neurological: No focal neurological deficits, Motor Exam 5/5 strength throughout, Sensory exam intact to light touch and pain Psych/Mental Status: Normal Affect, Appropriate disoriented Assessment & Plan Assessment/Plan (1) DKA (diabetic ketoacidoses): QUALIFIERS: Diabetes mellitus type: type 2 Diabetes mellitus complication detail: without coma Qualified Code(s): E11.10 - Type 2 diabetes mellitus with ketoacidosis without coma (2) Hypertensive urgency: (3) Acute metabolic encephalopathy: PLAN: Plan 1. DKA in the setting of type 2 diabetes with diabetic neuropathy ? Her gap's are closed x 2 ? Transition to subcu insulin and can transfer out of the ICU ? Will attempt to restart gabapentin during her hospitalization ? PT/OT for evaluation and possible placement 2. Hypertensive urgency/HLD/paroxysmal A-fib ? Continue with statin ? Continue with Eliquis ? Will monitor make adjustments as necessary ? Can resume her home medications 3. Acute metabolic encephalopathy in the setting of dementia ? Her altered mental status is likely related to her DKA and that she does have chronic dementia ? There was a concern for possible stroke, NIH of 1 for aphasia ? Uncertain that continued workup for stroke is warranted 4. Bipolar ? Continue with her home meds ? Stable 5. GERD ? Stable ? Continue with PPI DVT: Eliquis Charges/Coding Visit Charges Inpatient E&M: 09182 Subs Hosp L2 11/10/24 1009 <Electronically signed by Dereck Youssef MD> Cosigner Signature (if applicable): CC: ~ Signed [facility] Work Phone: Progress note Author Dereck Youssef [facility] Note Date/Time November 11, 2024 7:59am [facility] Medical Records Department [address] [place] [address] Progress Note - Hospitalist 11/11/24 0757 MR#: [id number] Acct: [id number] Name: MARSHDONNA L Rep #:[id number] : 1955 69 From: Dereck valdovinos MD PCP: Rudy Boyer TRAUMA COORDINATOR-C Status:ADM IN Location: [place]3 [id number] Subjective Subjective Doing well, no issues overnight. Objective Data Objective Data Vital Signs: Vital Signs Temp Pulse Resp BP Pulse Ox O2 Del Method 98.6 F 80 15 144/77 H 96 Room Air 11/11/24 03:18 11/11/24 03:18 11/11/24 03:18 11/11/24 03:18 11/11/24 03:18 11/11/24 04:14 Oxygen Delivery Method Room Air Weight: 138 lb 14.259 oz Body Mass Index (BMI) 23.7 Intake & Output: Intake and Output for Last 24 Hours 11/10/24 11/11/24 11/12/24 03:59 03:59 03:59 Intake Total 1348.75 / 1348.75 2153.75 / 2153.75 Output Total 725 / 725 950 / 950 Balance 623.75 / 623.75 1203.75 / 1203.75 Lab / Micro Data 11/11/24 05:16 11/11/24 05:16 Labs: Laboratory Results - last 24 hr 11/10/24 11:11: POC Glucose 137 H 11/10/24 15:35: POC Glucose 168 H 11/10/24 22:06: POC Glucose 145 H 11/11/24 05:16: WBC 9.5, RBC 4.01 L, Hgb 11.3 L, Hct 35.9 L, MCV 89.5, MCH 28.2,MCHC 31.5 L D, RDW Std Deviation 45.2 H, RDW Coeff of Gerhard 13.7, Plt Count 288, MPV 9.6, Immature Gran % (Auto) 0.400, Neut % (Auto) 55.0, Lymph % (Auto) 35.1, Alcorn % (Auto) 6.3, Eos % (Auto) 3.0, Baso % (Auto) 0.2, Absolute Neuts (auto) 5.2, Absolute Lymphs (auto) 3.35, Nucleated RBC % 0, Sodium 142, Potassium 3.4, Chloride 109 H, Carbon Dioxide 22.4, Anion Gap 10, BUN 15, Creatinine 0.66 L, Estim Creat Clear Calc 55.70, Est GFR (MDRD) Non-Af 94, BUN/Creatinine Ratio 23.1 H, Glucose 131 H, Calcium 8.6 11/11/24 06:33: POC Glucose 141 H Micro: Microbiology 11/08/24 03:15 Mucosa - Nasopharyngeal Respiratory Panel (PCR) - Final Physical Exam Narrative General: Alert, oriented x 2, Cooperative, No apparent distress HEENT: Atraumatic, PERRLA, EOMI, Normocephalic, ecchymosis over her left eye Oral: Moist Mucosa Neck: Supple, No JVD Lungs: Diminished, Normal air movement, No rhonchi, No wheeze, No rales Cardiovascular: Regular rate, Regular Rhythm, Normal S1, Normal S2, No murmurs Abdomen: Soft, Non Tender, Non-Distended, No Hepato-splenomegaly Extremities: No edema, Capillary Refill Less than 3 Seconds Skin: No rashes, No breakdown Musculoskeletal: No Tenderness to Palpation of Joints or Extremities Neurological: No focal neurological deficits, moves all extremities Psych/Mental Status: Normal Affect, Appropriate disoriented Assessment & Plan Assessment/Plan (1) DKA (diabetic ketoacidoses): QUALIFIERS: Diabetes mellitus type: type 2 Diabetes mellitus complication detail: without coma Qualified Code(s): E11.10 - Type 2 diabetes mellitus with ketoacidosis without coma (2) Hypertensive urgency: (3) Acute metabolic encephalopathy: PLAN: Plan 1. DKA in the setting of type 2 diabetes with diabetic neuropathy ? Her gap's are closed x 2 ? Transition to subcu insulin and can transfer out of the ICU ? Will attempt to restart gabapentin during her hospitalization ? PT/OT for evaluation and possible placement 2. Hypertensive urgency/HLD/paroxysmal A-fib ? Continue with statin ? Continue with Eliquis ? Will monitor make adjustments as necessary ? Can resume her home medications 3. Acute metabolic encephalopathy in the setting of dementia ? Her altered mental status is likely related to her DKA and that she does have chronic dementia ? There was a concern for possible stroke, NIH of 1 for aphasia ? Uncertain that continued workup for stroke is warranted 4. Bipolar ? Continue with her home meds ? Stable 5. GERD ? Stable ? Continue with PPI DVT: Eliquis Charges/Coding Visit Charges Inpatient E&M: 12201 Subs Hosp L2 11/11/24 0426 <Electronically signed by Dereck Youssef MD> Cosigner Signature (if applicable): CC: ~ Signed [facility] Work Phone: Progress note Author Anuja Murcia [facility] Note Date/Time November 12, 2024 7: 59am [facility] Medical Records Department [address] [place] [address] Progress Note - Hospitalist 11/12/24 0744 MR#: [id number] Acct: [id number] Name: DONNA MARSH Rep #:[id number] : 1955 69 From: Anuja Murcia MD PCP: Rudy Boyer TRAUMA COORDINATOR-C Status:ADM IN Location: [place] [id number] Reason for Visit Chief Complaint: Abdominal Pain and AMS. Subjective Subjective Patient is a 69-year-old lady admitted with altered mental status diagnosis of diabetic ketoacidosis made admitted to the intensive care unit subsequently managed and stabilized and transferred to [facility] Objective Data Objective Data Vital Signs: Vital Signs Temp Pulse Resp BP Pulse Ox O2 Del Method 98 F 91 18 158/84 H 98 Room Air 11/12/24 04:07 11/12/24 04:07 11/12/24 04:07 11/12/24 04:07 11/12/24 04:07 11/12/24 04:08 Oxygen Delivery Method Room Air Weight: 63.2 kg Body Mass Index (BMI) 23.8 Intake & Output: Intake and Output for Last 24 Hours 11/10/24 11/11/24 11/12/24 23:59 23:59 23:59 Intake Total 1158.75 / 1158.75 1994 1155 / 1155 Output Total 925 / 925 2150 / 2150 800 / 800 Balance 233.75 / 233.75 -155 / -155 355 / 355 Lab / Micro Data 11/12/24 05:19 11/12/24 05:19 Labs: Laboratory Results - last 24 hr 11/11/24 11:40: POC Glucose 186 H 11/11/24 16:22: POC Glucose 179 H 11/11/24 21:01: POC Glucose 157 H 11/11/24 21:15: Urine Color Yellow, Urine Clarity Clear, Urine pH 8.0, Ur Specific Bude 1.010, Urine Protein 30 H, Urine Glucose (UA) Normal, Urine Ketones Negative, Urine Occult Blood 150 H, Urine Nitrite Negative, Urine Bilirubin Negative, Urine Urobilinogen Normal, Ur Leukocyte Esterase Negative, Urine RBC 10-25 SEEN, Urine WBC 10-25 SEEN, Ur Squamous Epith Cells 0 SEEN, Urine Bacteria RARE, Urine Mucus 0 SEEN 11/12/24 05:19: WBC 10.0, RBC 4.13 L, Hgb 11.7 L, Hct 36.4 L, MCV 88.1, MCH 28.3, MCHC 32.1, RDW Std Deviation 43.5, RDW Coeff of Gerhard 13.4, Plt Count 282, MPV 9.5, Immature Gran % (Auto) 0.300, Neut % (Auto) 61.4, Lymph % (Auto) 29.8, Alcorn % (Auto) 5.2, Eos % (Auto) 3.0, Baso % (Auto) 0.3, Absolute Neuts (auto) 6.2, Absolute Lymphs (auto) 2.99, Nucleated RBC % 0, Sodium 142, Potassium 3.3, Chloride 110 H, Carbon Dioxide 21.1, Anion Gap 11, BUN 10, Creatinine 0.66 L, Estim Creat Clear Calc 55.70, Est GFR (MDRD) Non-Af 94, BUN/Creatinine Ratio 14.6, Glucose 146 H, Calcium 8.6 11/12/24 06:46: POC Glucose 134 H Micro: Microbiology 11/08/24 03:15 Mucosa - Nasopharyngeal Respiratory Panel (PCR) - Final Physical Exam Narrative GENERAL: cooperative HEENT: Left periorbital bruise normocephalic EYES; Anicteric, Normal Conjunctiva NECK; supple, normal thyroid, RESPIRATORY: Diminished to auscultation CARDIOVASCULAR: Regular S1 S2, GI: soft, normoactive bowel sounds, : No Renal angle tenderness; EXTREMITIES: No edema, no clubbing, MUSCULOSKELETAL: no muscle wasting NEURO: Awake; no lateralizing signs. SKIN: Bruising on the left flank PSYCH; Flat affect Assessment & Plan Assessment/Plan (1) DKA (diabetic ketoacidoses): QUALIFIERS: Diabetes mellitus complication detail: without coma Diabetes mellitus type: type 2 Qualified Code(s): E11.10 - Type 2 diabetes mellitus with ketoacidosis without coma (2) Hypertensive urgency: (3) Acute metabolic encephalopathy: PLAN: Plan Patient is a 69-year-old lady admitted with altered mental status with nausea and vomiting and multiple falls diagnosis of diabetic ketoacidosis made admittedto the intensive care unit subsequently managed and stabilized and transferred to [facility] 1. Diabetic ketoacidosis in the setting of diabetes mellitus type 2 ? Managed per protocol with IV fluids and insulin and correction of electrolyte abnormalities. DKA resolved patient transferred to [facility]. Currently on long- acting insulin with Accu-Cheks AC and at bedtime with sliding scale coverage. Patient oral 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 agents on hold 2. Acute metabolic encephalopathy ? Secondary to DKA 3. Acute hypertensive urgency ? Patient blood pressure has since stabilized following admission 4. Physical deconditioning secondary to debility following the fall ? Requested for PT OT eval and medical social worker to assist with discharge planning 5. Acute kidney injury ? Creatinine on admission was 1.05. Patient kidney function has improved to 0.66 6. Dyslipidemia ?Patient is on statin therapy, continued at home dose 7. History of peptic ulcer disease ?EGD performed on 01/04/2024 showed ulcers in the esophagus, duodenum, and gastric areas. Patient is on PPI 8. History of Takotsubo cardiomyopathy ? Remains stable 9. History of renal artery stenosis ? Remains stable 10. Paroxysmal atrial fibrillation ? Rate controlled on carvedilol and systemic anticoagulation with apixaban 11. Depression with anxiety ? Patient is on BuSpar as well as fluoxetine continue 12. Obstructive sleep apnea ? Consistent use of PAP therapy encouraged 13. Dementia ? With behavioral agitation. Stated by patient DKA. Patient is on donepezil continued 14. DVT prophylaxis ? Patient is on apixaban Time spent in the patient's overall evaluation,decision-making process, review of diagnostic data, adjustment of management, discussion with other providers, nursing nursing and ancillary staff involved in patient's care documentation, 38minutes Charges/Coding Visit Charges Inpatient E&M: 69689 Subs Hosp L2 11/12/24 0752 <Electronically signed by Anuja uMrcia MD> Cosigner Signature (if applicable): CC: ~ Signed [facility] Work Phone: Reason for referral (narrative)* Consultation (Routine) - Pending Review Specialty Diagnoses / Procedures Referred By Contherbert t Referred To Contact Geriatric Medicine Diagnoses Cognitive impairment Procedures [place] [facility] 60-74 MINUTES Sharita Rousseau MD [address] [address] [facility] [address] [place] [address] Referral ID Status Reason Start Date Expiration Date Visits Requested Visits Authorized [id number] Pending Review Specialty Services [facility] 12[facility]24/2023 1 [facility]ative[facility]No reason for referral information [facility] Work Phone: Summary Purpose Family History No Family History Records Found Relationship Condition Age at Onset Recorded Date/T lise mother Malignant neoplasm Unknown father Malignant neoplasm Unknown Advance Directives No Advanced Directives Records Found Advance Directive Response Recorded Date/ Time Living Will No March 06 8:24pm Power of Press Technician No March 06, 2019 8:24pm Advance Directive Response Recorded Date/ Time Living Will No August 05, 2022 6:01pm Power of Press Technician No August 05 6:01pm Advance Directive Response Recorded Date/ Time Living Will No August 14, 2022 5 :51pm Power of Press Technician No August 14, 2022 5:51pm Latest Code Status on File Code Status Date Activated Date Inactivated Comments Full Code 10/03/2022 9:29 PM Latest Code Status on File Code Status Date Activated Date Inactivated Comments Full Code 10/03/2022 9:29 PM 10/15/2022 5:28 PM Advance Directive Response Recorded Date/ Time Living Will No December 23 023 2:26pm Power of Press Technician No December 23, 2022 2:26pm Latest Code [...] No April 14, 2023 2:07am Power of Press Technician No April 13 2:07am Advance Directive Response Recorded Date/ Time Living Will No April 14, 2023 3:07am Power of Press Technician No April 13 3:07am Advance Directive Response Recorded Date/ Time Living Will No December 30 12:21am Power of Press Technician No December 31, 2023 12:21am Living Will No February 13 12:22am Power of Press Technician No February 13 12:22am Living Will Yes April 20, 2024 5:06pm Power of Press Technician Yes April 20 5:06pm Name of Medical Power of Press Technician April 20, 2024 5:06pm Advance Directive Response Recorded Date/ Time Living Will No December 30 12:21am Power of Press Technician No December 31, 2023 12:21am Living Will No February 13 12:22am Power of Press Technician No February 13 12:22am Living Will Yes April 20, 2024 9:30pm Power of Press Technician Yes April 20 9:30pm Name of Medical Power of Press Technician April 20, 2024 9:30pm Advance Directive Response Recorded Date/ Time Living Will No February 13 12:22am Do you have a Healthcare Power of Press Technician? No February 14, 2024 12:22am Living Will Yes April 20, 2024 9:30pm Do you have a Healthcare Power of Press Technician? Yes April 20, 2024 9:30pm Name of Medical Power of Press Technician April 20, 2024 9:30pm Living Will Yes May 13, 2024 3:50pm Do you have a Healthcare Power of Press Technician? No May 13, 2024 3:50pm Advance Directive Response Recorded Date/ Time Living Will No February 13 12:22am Do you have a Healthcare Power of Press Technician? No February 14, 2024 12:22am Living Will Yes April 20, 2024 9:30pm Do you have a Healthcare Power of Press Technician? Yes April 20, 2024 9:30pm Name of Medical Power of Press Technician April 20, 2024 9:30pm Living Will Yes May 13, 2024 11:24pm Do you have a Healthcare Power of Press Technician? No May 13, 2024 11:24pm Advance Directive Response Recorded Date/ Time Living Will Yes May 13, 2024 11:24pm Do you have a Healthcare Power of Press Technician? No May 13, 2024 11:24pm Living Will No May 17, 2024 9:45pm Do you have a Healthcare Power of Press Technician? No May 17, 2024 9:45pm Living Will No May 19, 2024 10:02am Do you have a Healthcare Power of Press Technician? No May 19, 2024 10:02am Do you have a Healthcare Power of Press Technician? No September 01, 2024 12:49am Advance Directive Response Recorded Date/ Time Do you have a Healthcare Power of Press Technician? No September 01, 2024 12:49am Advance Directive Response Recorded Date/ Time Do you have a Healthcare Power of Press Technician? No November 08, 2024 2:49am Do you have a Healthcare Power of Press Technician? No September 01, 2024 12:49am Chief Complaint and Reason for Visit Chief [...] LAB WORK LABWORK LAB WORK LAB WORK LONG-TERM LAB WORK Chief Complaint fall LAB WORK LAB WORK LABWORK LAB WORK LAB WORK LONG-TERM LABWORK LONG-TERM LAB WORK Chief Complaint fall LAB WORK LAB WORK LABWORK LAB WORK LAB WORK LONG-TERM LABWORK LONG-TERM LAB WORK LONG-TERM LAB WORK Chief Complaint fall LAB WORK LAB WORK LABWORK LAB WORK LAB WORK LONG-TERM LABWORK LONG-TERM LAB WORK LONG-TERM LAB WORK LONG-TERM LAB WORK Chief Complaint fall LAB WORK LAB WORK LABWORK LAB WORK LAB WORK LONG-TERM LABWORK LONG-TERM LAB WORK LONG-TERM LAB WORK LONG-TERM LAB WORK LONG-TERM LABWORK Chief Complaint fall LAB WORK LAB WORK LABWORK LAB WORK LAB WORK LONG-TERM LABWORK LONG-TERM LAB WORK LONG-TERM LAB WORK LONG-TERM LAB WORK LONG-TERM LABWORK LABWORK Chief Complaint fall LAB WORK LAB WORK LABWORK LAB WORK LAB WORK LONG-TERM LABWORK LONG-TERM LAB WORK LONG-TERM LAB WORK LONG-TERM LAB WORK LONG-TERM LABWORK LONG-TERM LAB WORK LABWORK Chief Complaint fall LAB WORK LAB WORK LABWORK LAB WORK LAB WORK LONG-TERM LABWORK LONG-TERM LAB WORK LONG-TERM LAB WORK LONG-TERM LAB WORK LONG-TERM LABWORK LONG-TERM LAB WORK LONG-TERM LAB WORK LABWORK Chief Complaint fall LAB WORK LAB WORK LABWORK LAB WORK LAB WORK LONG-TERM LABWORK LONG-TERM LAB WORK LONG-TERM LAB WORK LONG-TERM LAB WORK LONG-TERM LABWORK LONG-TERM LAB WORK LONG-TERM LAB WORK LABWORK LABWORK Chief Complaint fall LAB WORK LAB WORK LABWORK LAB WORK LAB WORK LONG-TERM LABWORK LONG-TERM LAB WORK LONG-TERM LAB WORK LONG-TERM LAB WORK LONG-TERM LABWORK LONG-TERM LAB WORK LONG-TERM LAB WORK LABWORK LONG-TERM LAB WORK LABWORK LABWORK Chief Complaint fall LAB WORK LAB WORK LABWORK LAB WORK LAB WORK LONG-TERM LABWORK LONG-TERM LAB WORK LONG-TERM LAB WORK LONG-TERM LAB WORK LONG-TERM LABWORK LONG-TERM LAB WORK LONG-TERM LAB WORK LABWORK LONG-TERM LAB WORK LABWORK LABWORK ACUTE PROCTITIS, ACUTE PANCREATITIS AND UTI Reason for Visit Accelerated hyperten xi Acute cystitis without hematuria Hypertensive urgency Opioid withdrawal Pancreatitis Proctitis Rectal mass Sepsis Type 2 diabetes mellitus Urinary tract infection CKD (chronic kidney disease), stage III Chief Complaint fall LAB WORK LAB WORK LABWORK LAB WORK LAB WORK LONG-TERM LABWORK LONG-TERM LAB WORK LONG-TERM LAB WORK LONG-TERM LAB WORK LONG-TERM LABWORK LONG-TERM LAB WORK LONG-TERM LAB WORK LABWORK LONG-TERM LAB WORK LABWORK LABWORK ACUTE PROCTITIS, ACUTE [...] (chronic kidney disease), stage III Chief Complaint LONG-TERM LAB WOR K LABWORK LONG-TERM LAB WORK LABWORK LABWORK ACUTE PROCTITIS, ACUTE [...] 2024 8:18am SEPSIS 2/2 UNKNOWN SOURCE February 12 025 9:03pm SEPSIS 2/2 UNKNOWN SOURCE February 12 025 9:12pm SEPSIS 2/2 UNKNOWN SOURCE February 13, 025 12:48am SEPSIS 2/2 UNKNOWN SOURCE February 13 025 7:03am SEPSIS 2/2 UNKNOWN SOURCE February 14 025 10:44am SEPSIS 2/2 UNKNOWN SOURCE February 15 025 2:57pm SEPSIS 2/2 UNKNOWN SOURCE February 16 025 3:14pm ams April 20, 2024 7:18 pm SEPSIS UTI DURAN ENCEPHALOPATHY April 20, 2024 8:22pm Reason for Visit Admit Date Acidosis, lactic December 30, 2023 10:40pm Acute kidney injury December 30, 2023 10:40pm CHF exacerbation December 30, 2023 10:40pm Elevated troponin December 30, 2023 10:40pm Febrile December 30, 2023 10:40pm Hypoxia December 30, 2023 10:40pm Urinary tract infection December 29 024 10:40pm Myocardial infarction type 2 December [...] April 2:18pm FALL, INTRACTABLE BACK PAIN May 13 025 9:36pm Reason for Visit Admit Date [...] 2024 8:18am SEPSIS 2/2 UNKNOWN SOURCE February 12 025 9:03pm SEPSIS 2/2 UNKNOWN SOURCE February 12 025 9:12pm SEPSIS 2/2 UNKNOWN SOURCE February 13 025 12:48am SEPSIS 2/2 UNKNOWN SOURCE February 13 2 025 7:03am SEPSIS 2/2 UNKNOWN SOURCE February 14 2 025 10:44am SEPSIS 2/2 UNKNOWN SOURCE February 15 025 2:57pm SEPSIS 2/2 UNKNOWN SOURCE February 16 025 3:14pm ams April 20, 2024 7:18 pm SEPSIS UTI DURAN ENCEPHALOPATHY April 20, 2024 7:19pm SEPSIS UTI DURAN ENCEPHALOPATHY April 7:41am SEPSIS UTI DURAN ENCEPHALOPATHY April 4:42pm SEPSIS UTI DURAN ENCEPHALOPATHY April 5:40pm SEPSIS UTI DURAN ENCEPHALOPATHY April 4:23pm SEPSIS UTI DURAN ENCEPHALOPATHY April 2:18pm FALL, INTRACTABLE BACK PAIN May 13, 025 9:36pm FALL, INTRACTABLE BACK PAIN May 14 025 10:11am FALL, INTRACTABLE BACK PAIN May 14 025 11:43am FALL, INTRACTABLE BACK PAIN May 15 025 10:51am FALL, INTRACTABLE BACK PAIN May 16 025 9:10am FALL, INTRACTABLE BACK PAIN May 17 025 7:52am Reason for Visit Admit Date [...] 11:43am Hypertension May 14, 2024 11:4 3am Chief Complaint Admit Date FALL, INTRACTABLE BACK PAIN May 13 025 9:36pm FALL, INTRACTABLE BACK PAIN May 14 025 10:11am FALL, INTRACTABLE BACK PAIN May 14 025 11:43am FALL, INTRACTABLE BACK PAIN May 15 025 10:51am FALL, INTRACTABLE BACK PAIN May 16 025 9:10am FALL, INTRACTABLE BACK PAIN May 17 025 7:52am back pain May 17, 2024 9:36 pm fall May 19, 2024 9:52 am 4 M FU May 29, 2024 1:1 8pm SEPSIS September 01, 2024 2:33 am Reason for Visit Admit Date Intractable low back pain May 14 11:43am Hypertension May 14, 2024 11:4 3am DURAN (acute kidney injury) May 14 11:43am Fall May 14, 2024 11:4 3am Inability to walk May 14, 2024 11:4 3am Chest pain May 29, 2024 1:1 8pm Gastroenteritis May 29, 2024 1:1 8pm Acute cystitis without hematuria September 012024 2:33am Chronic anticoagulation September 01, 2024 2:33am Closed L3 vertebral fracture September 01, 2024 2:33am Erythrocytosis September 01, 2024 2:33 am Frequent falls September 01, 2024 2:33 am Hypercalcemia September 01, 2024 2:33 am Paroxysmal atrial fibrillation August 2:33am Sepsis September 01, 2024 2:33 am Septic encephalopathy September 01, 2024 2: 33am Transaminitis September 01, 2024 2:33 am Chief Complaint Admit Date SEPSIS 2/2 UTI, SEPTIC ENCEPHALOIPATHY, LE September 01, 2024 2:49am SEPSIS 2/2 UTI, SEPTIC ENCEPHALOIPATHY, LE September 01, 2024 6:45am SEPSIS 2/2 UTI, SEPTIC ENCEPHALOIPATHY, LE September 02, 2024 1:20pm SEPSIS 2/2 UTI, SEPTIC ENCEPHALOIPATHY, LE September 03, 2024 12:43pm SEPSIS 2/2 UTI, SEPTIC ENCEPHALOIPATHY, LE September 04, 2024 12:25pm SEPSIS 2/2 UTI, SEPTIC ENCEPHALOIPATHY, LE September 05, 2024 1:17pm 4 M FU October 01, 2024 2: 01pm Reason for Visit Admit Date Acute encephalopathy September 01, 2024 2:4 9am Sepsis September 01, 2024 2:49 am Acute cystitis without hematuria September 012024 2:49am Acute UTI September 01, 2024 2:49 am Chronic anticoagulation September 01, 2024 2:49am Closed L3 vertebral fracture September 01, 2024 2:49am Erythrocytosis September 01, 2024 2:49 am Frequent falls September 01, 2024 2:49 am Hypercalcemia September 01, 2024 2:49 am Paroxysmal atrial fibrillation August 2:49am Septic encephalopathy September 01, 2024 2: 49am Transaminitis September 01, 2024 2:49 am Chief Complaint Admit Date SEPSIS 2/2 UTI, SEPTIC ENCEPHALOIPATHY, LE September 01, 2024 2:49am SEPSIS 2/2 UTI, SEPTIC ENCEPHALOIPATHY, LE September 01, 2024 6:45am SEPSIS 2/2 UTI, SEPTIC ENCEPHALOIPATHY, LE September 02, 2024 1:20pm SEPSIS 2/2 UTI, SEPTIC ENCEPHALOIPATHY, LE September 03, 2024 12:43pm SEPSIS 2/2 UTI, SEPTIC ENCEPHALOIPATHY, LE September 04, 2024 12:25pm SEPSIS 2/2 UTI, SEPTIC ENCEPHALOIPATHY, LE September 05, 2024 1:17pm 4 M FU October 01, 2024 2: 01pm DKA, AMS AND HYPERTENSIVE URGENCY Septem 2024 1:31am DKA, AMS AND HYPERTENSIVE URGENCY Septem 2024 9:47am DKA, AMS AND HYPERTENSIVE URGENCY Septem 2024 10:04am DKA, AMS AND HYPERTENSIVE URGENCY Septem 2024 7:57am Reason for Visit Admit Date Chronic anticoagulation September 01, 2024 2:49am Paroxysmal atrial fibrillation August 2:49am Acute encephalopathy September 01, 2024 2:4 9am Sepsis September 01, 2024 2:49 am Acute cystitis without hematuria September 012024 2:49am Acute UTI September 01, 2024 2:49 am Closed L3 vertebral fracture September 01, 2024 2:49am Erythrocytosis September 01, 2024 2:49 am Frequent falls September 01, 2024 2:49 am Hypercalcemia September 01, 2024 2:49 am Septic encephalopathy September 01, 2024 2: 49am Transaminitis September 01, 2024 2:49 am Chest pain October 01, 2024 2: 01pm Gastroenteritis October 01, 2024 2: 01pm Acute metabolic encephalopathy November 08, 2024 1:31am Chronic anticoagulation November 08, 2024 1:31am DKA (diabetic ketoacidoses) November 082024 1:31am Hypertensive urgency November 08 1:31am Paroxysmal atrial fibrillation November 08, 2024 1:31am Bipolar disease, chronic November 08, 2024 1:31am Chronic dementia November 08, 2024 1:31am Chief Complaint Admit Date SEPSIS 2/2 UTI, SEPTIC ENCEPHALOIPATHY, LE September 01, 2024 2:49am SEPSIS 2/2 UTI, SEPTIC ENCEPHALOIPATHY, LE September 01, 2024 6:45am SEPSIS 2/2 UTI, SEPTIC ENCEPHALOIPATHY, LE September 02, 2024 1:20pm SEPSIS 2/2 UTI, SEPTIC ENCEPHALOIPATHY, LE September 03, 2024 12:43pm SEPSIS 2/2 UTI, SEPTIC ENCEPHALOIPATHY, LE September 04, 2024 12:25pm SEPSIS 2/2 UTI, SEPTIC ENCEPHALOIPATHY, LE September 05, 2024 1:17pm 4 M FU October 01, 2024 2: 01pm DKA, AMS AND HYPERTENSIVE URGENCY Septem 2024 1:31am DKA, AMS AND HYPERTENSIVE URGENCY Septem 2024 9:47am DKA, AMS AND HYPERTENSIVE URGENCY Septem 2024 10:04am DKA, AMS AND HYPERTENSIVE URGENCY Septem 2024 7:57am DKA, AMS AND HYPERTENSIVE URGENCY Octobe r 2024 7:44am DKA, AMS AND HYPERTENSIVE URGENCY Octobe r 2024 9:39am DKA, AMS AND HYPERTENSIVE URGENCY Octobe r 2024 7:15am Reason for Referral Specialty Diagnoses / Procedures Referred By Contac t Referred To Contact Home Health Services Diagnoses Closed displaced intertrochanteric fracture of right femur with routine healing, subsequent encounter Procedures [place] [facility] 60 MINUTES Yifan Lozano PA-C [address] [place] [id number] Referral ID Status Reason Start Date Expiration Date Visits Requested Visits Authorized [id number] Pending Review Specialty Services Required 04/10/2023 04/04/2024 [id number] Referral ID Status Reason Start Date Expiration Date Visits Requested Visits Authorized [id number] Pending Review Specialty Services Required 04/12/2023 10/09/2023 [id number] Additional Source Comments INFORMATION SOURCE (unrecogn ized section and content) DATE CREATED AUTHOR 08/08/2017 [facility] DATE CREATED AUTHOR AUTHOR'S ORGANIZ ATION 04/03/2018 [facility] DATE CREATED AUTHOR AUTHOR'S ORGANIZ ATION 04/17/2018 [facility] DATE CREATED AUTHOR AUTHOR'S ORGANIZ ATION 01/01/2023 [facility] DATE CREATED AUTHOR AUTHOR'S ORGANIZ ATION 05/09/2023 [facility] DATE CREATED AUTHOR AUTHOR'S ORGANIZ ATION 09/09/2024 [facility] DATE CREATED AUTHOR AUTHOR'S ORGANIZ ATION 11/27/2024 [facility] Goals (unrecognized section and content) Goals [...] MD Primary Care Provider, Referring Provider Active Annalise VELÁSQUEZ, PA Attending Provider Active Team Status: Inactive Member Role Status Dates Dr. Cici Calderon MD Primary Care Provider Active Dr. Ethan Hayes MD Attending Provider Active Team Status: Inactive Member Role Status Dates ORESTES Cano Primary Care Provide r, Attending Provider, Referring Provider Active Team Status: Active Member Role Status Dates ORESTES Cano Primary Care Provider Active Dr. Nico Arce MD Emergency Provider Active Dr. Home Valverde MD Admit Provider, Attending Provider, Referring Provider Active Team Status: Active Member Role Status Dates ORESTES Cano Primary Care Provider Active Dr. Nico Arce MD Emergency Provider Active Dr. Hoem Valverde MD Admit Provider, Referring Provider, Other Provider Active Dr. John Short , DO Attending Provider, Other Pro vider Active Team Status: Active Member Role Status Dates Rudy Boyer TRAUMA COORDINATOR-C Primary Care Provider Active Dr. Nico Arce MD Emergency Provider Active Dr. Home Valverde MD Admit Provider, Attending Provider, Referring Provider, Other Provider Active Dr. John Short , DO Other Provider Active Team Status: Active Member Role Status Dates Rudy Boyer TRAUMA COORDINATOR-C Primary Care Provider Active Dr. Nico Arce MD Emergency Provider Active Dr. Home Valverde MD Admit Provider, Referring Provider, Other Provider Active Dr. John Short , DO Other Provider Active Dr. Kanwal Aguilar MD Attending Provider Active Team Status: Active Member Role Status Dates Rudy Boyer TRAUMA COORDINATOR-C Primary Care Provider Active Dr. Nico Arce MD Emergency Provider Active Dr. Home Valverde MD Admit Provider, Referring Provider, Other Provider Active Dr. Tamiko Quigley , Attending Provider, Other Provide r Active Dr. John Short , DO Other Provider Active Dr. Josue Ivan MD Other Provider Active Dr. Josephine Lutz MD Other Provider Active Dr. Kassandra Fountain MD Other Provider Active Dr. Gerry Austin MD Other Provider Active Dr. Regina Oden , DO Other Provider Active Team Status: Active Member Role Status Dates Rudy Boyer TRAUMA COORDINATOR-C Primary Care Provider Active Dr. Nico Arce MD Emergency Provider Active Dr. Home Valverde MD Admit Provider, Referring Provider, Other Provider Active Dr. Tamiko Quigley , DO Other Provider Active Dr. John Short , DO Other Provider Active Dr. Home Miller MD Attending Provider, Other Provide r Active Team Status: Active Member Role Status Dates Rudy Boyer , TRAUMA COORDINATOR-C Primary Care Provider Active Dr. Nico Arce [...] Kelley MD Other Provider Active Cindy Wyatt TRAUMA COORDINATOR, TRAUMA COORDINATOR-C Other Provider Active Team Status: Active Member Role Status Dates Rudy Boyer , TRAUMA COORDINATOR-C Primary Care Provider Active Dr. Nico Arce [...] Kelley MD Other Provider Active Cindy Wyatt TRAUMA COORDINATOR, TRAUMA COORDINATOR-C Other Provider Active Team Status: Active Member Role Status Dates Rudy Boyer , TRAUMA COORDINATOR-C Primary Care Provider Active Dr. Nico Arce [...] Kelley MD Other Provider Active Cindy Wyatt TRAUMA COORDINATOR, TRAUMA COORDINATOR-C Other Provider Active Dr. Prem Toro MD Other Provider Active Team Status: Active Member Role Status Dates Rudy Boyer TRAUMA COORDINATOR-C Primary Care Provider Active Dr. Nico Arce [...] Kelley MD Other Provider Active Cindy Wyatt TRAUMA COORDINATOR, TRAUMA COORDINATOR-C Other Provider Active Dr. Prem Toro MD Other Provider Active Team Status: Inactive Member Role Status Dates Rudy Boyer TRAUMA COORDINATOR-C Primary Care Provider Active Dr. Nico Arce MD Emergency Provider Active Dr. Home Valverde MD Admit Provider, Referring Provider, Other Provider Active Dr. Tamiko Quigley , Attending Provider Active Dr. John Short , DO Other Provider Active Dr. Home Miller MD Other Provider Active Dr. Filemon Coffman MD Other Provider Active Dr. Atul Quezada , DO Other Provider Active Dr. Dann Linn MD Other Provider Active Dr. Floyd Kelley MD Other Provider Active Cindy Wyatt TRAUMA COORDINATOR, TRAUMA COORDINATOR-C Other Provider Active Dr. Prem Toro MD Other Provider Active [employer] Relationship Specialty Start Date End Date Cici Calderon MD PCP - General Family Medicine 04/24/13 [employer] Preserving [employer]orer Relationship Specialty Start Date End Date Cici Calderon MD PCP - General Family Medicine 04/24/13 Team Status: Active Member Role Status Dates Rudy Boyer TRAUMA COORDINATOR-C Primary Care Provider Active Dr. Nico Arce [...] Active Member Role Status Dates Rudy Boyer TRAUMA COORDINATOR-C Primary Care Provider Active Dr. Ncio Arce MD Emergency Provider Active Dr. Home [...] Member Role Status Dates Rudy Sharla , TRAUMA COORDINATOR-C Primary Care Provider Active Dr. Nico Arce [...] Kelley MD Other Provider Active Cindy Wyatt TRAUMA COORDINATOR, TRAUMA COORDINATOR-C Other Provider Active Team Status: Active Member Role Status Dates Rudy Boyer TRAUMA COORDINATOR-C Primary Care Provider Active Dr. Nico Arce [...] Kelley MD Other Provider Active Cindy Wyatt TRAUMA COORDINATOR, TRAUMA COORDINATOR-C Other Provider Active Dr. Prem Toro MD Other Provider Active Team Status: Active Member Role Status Dates Rudy Boyer , TRAUMA COORDINATOR-C Primary Care Provider Active Dr. Ethan Hayes MD Attending Provider Active Dr. Home Valverde MD Referring Provider Active Team Status: Inactive Member Role Status Dates Rudy Boyer , TRAUMA COORDINATOR-C Primary Care Provider Active Dr. Regina Oden , Attending Provider, Referring Prov ider Active [employer]erving [employer]orer Relationship Specialty Start Date End Date Cici Calderon MD PCP - General Family Medicine 04/24/13 [employer] Preserving Plant Laborer Relationship Specialty Start Date End Date Cici Calderon [address] [place] [address] [place] [id number] PCP - General 12/21/15 [employer] Preserving [employer] Laborer Relationship Specialty Start Date End Date Cici Calderon MD PCP - General Family Medicine 04/24/13 [employer] Preserving Plant Laborer Relationship Specialty Start Date End Date Cici Calderon [address] [place] [address] PCP - General 12/21/15 [employer] Preserving Plant Laborer Relationship Specialty Start Date End Date Cici Calderon [address] [place] [address] PCP - General 12/21/15 [employer] Preserving [employer] Laborer Relationship Specialty Start Date End Date Cici Calderon MD PCP - General Family Medicine 04/24/13 [employer] Preserving Plant Laborer Relationship Specialty Start Date End Date Cici Calderon [address] [place] [address] PCP - General 12/21/15 [employer] 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 Jen Olivares MD Attending Provider, Emergency Provider Active Team Status: Active Member Role Status Dates Rudy Boyer , TRAUMA COORDINATOR-C Primary Care Provider Active Dr. Radha SOLARES MD Attending Provider, Referring Provider Active Team Status: Active Member Role Status Dates Rudy Boyer , TRAUMA COORDINATOR-C Primary Care Provider Active Dr. Radha SOLARES MD Attending Provider Active Team Status: Inactive Member Role Status Dates Rudy Boyre , TRAUMA COORDINATOR-C Primary Care Provider Active Dr. Radha SOLARES MD Attending Provider Active Team Status: Inactive Member Role Status Dates Rudy Boyer , TRAUMA COORDINATOR-C Primary Care Provider Active Dr. 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 Marcos Hoffman , DO Emergency Provider Active Dr. Anuja Noel , DO Admit Provider, Other Provid er Active Dr. Tamiko Quigley , DO Attending Provider Active [employer] Laborer Relationship Specialty Start Date End Date Rudy Boyer FNP [address] [place] [address] PCP - [facility] 04/10/23 Team Status: Active Member Role Status Dates Rudy Boyer , TRAUMA COORDINATOR-C Primary Care Provider Active Dr. Marcos Hoffman , DO Emergency Provider Active Dr. Anuja Noel , DO Admit Provider , Attending Provider, Other Provider Active Dr. Tamiko Quigley , DO Other Provider Active Team Status: Active Member Role Status Dates Rudy Adornogar , TRAUMA COORDINATOR-C Primary Care Provider Active Dr. Marcos Hoffman , DO Emergency Provider Active Dr. Anuja Noel , DO Admit Provider, Other Provid er Active Dr. Tamiko Quigley , DO Attending Provider, Other Provide r Active Team Status: Active Member Role Status Dates Rudy Adornogar , TRAUMA COORDINATOR-C Primary Care Provider Active Dr. Marcos Hoffman , DO Emergency Provider Active Dr. Anuja Noel , DO Admit Provider, Other Provid er Active Dr. Tamiko Quigley , DO Other Provider Active Dr. Christopher Huang , DO Attending Provider, Other Prov ider Active Team Status: Active Member Role Status Dates Rudy Sharla , TRAUMA COORDINATOR-C Primary Care Provider Active Dr. Marcos Hoffman [...] Member Role Status Dates Rudy Boyer , TRAUMA COORDINATOR-C Primary Care Provider Active Dr. Christopher Huang , DO Attending Provider Active Team Status: Active Member Role Status Dates Rudy Boyer , TRAUMA COORDINATOR-C Primary Care Provider Active Dr. Marcos Hoffman [...] Member Role Status Dates Rudy Boyer , TRAUMA COORDINATOR-C Primary Care Provider Active Dr. Marcos Hoffman [...] Member Role Status Dates Rudyjody Boyer , TRAUMA COORDINATOR-C Primary Care Provider Active Dr. Marcos Hoffman , DO Emergency Provider Active Dr. Anuja Noel , DO Admit Provider, Other Provid er Active Dr. Tamiko Quigley , DO Other Provider Active Dr. Anuja Murcia MD Attending Provider Active Dr. Miguel Chapman , DO Other Provider Active Dr. Christopher Huang , DO Other Provider Active [employer] Preserving Plant Laborer Relationship Specialty Start Date End Date Rudy Boyer FNP [address] [place] [address] PCP - General Family Medicine 04/10/23 Wood Preserving Plant Laborer Relationship Specialty Start Date End Date Rudy Boyre FNP [address] [place] [address] PCP - General Family Medicine 04/10/23 Wood Preserving Plant Laborer Relationship Specialty Start Date End Date Cici Calderon [address] [place] [phone] PCP - General 12/21/15 04/09/23 Rudy Boyer FNP [address] [place] [address] PCP - [facility] Family Medicine 04/10/23 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 Marcos Hoffman , DO Emergency Provider Active Dr. Anuja Noel , DO Admit Provider, Other Provid er Active Dr. Tamiko Quigley , DO Other Provider Active Dr. Christopher Huang , DO Attending Provider, Other Prov ider Active Dr. Anuja Murcia MD Referring Provider Active Team Status: Active Member Role Status Dates Rudy Boyer TRAUMA COORDINATOR-C Primary Care Provider Active Dr. Christopher Huang , DO Attending Provider Active Dr. Anuja Murcia MD Referring Provider Active Team Status: Active Member Role Status Dates Rudy Boyer TRAUMA COORDINATOR-C Primary Care Provider Active Dr. Marcos Hoffman [...] Member Role Status Dates Rudy Boyer , TRAUMA COORDINATOR-C Primary Care Provider Active Dr. Marcos Hoffman [...] Member Role Status Dates Rudy Boyer , TRAUMA COORDINATOR-C Primary Care Provider Active Dr. Norman Otoole MD Attending Provider, Referring Provider Active Team Status: Active Member Role Status Dates Rudyjody Boyer , TRAUMA COORDINATOR-C Primary Care Provider Active Team Status: Inactive Member Role Status Dates Rudyjody Boyer , TRAUMA COORDINATOR-C Primary Care Provider Active Start: December 30, [...] Member Role Status Dates Rudy Boyer , TRAUMA COORDINATOR-C Primary Care Provider Active Start: December 31, 2023 Dr. Ethan Hayes MD Attending Provider Active S tart: December 31, 2023 Team Status: Active Member Role Status Dates Rudy Boyer , TRAUMA COORDINATOR-C Primary Care Provider Active Start: December 31, [...] Provider Active Start: December 31, 2023 Dr. aZhra Palacio MD Other Provider Active Star t: December 31, 2023 Team Status: Active Member Role Status Dates ORESTES Cano Primary Care Provider Active Start: December 31, [...] December 31, 2023 Dr. Atul Quezada , Attending Provider Active S tart: December 31, [...] Boyer NP-C Primary Care Provider Active Start: December 31, [...] ORESTES Cano Primary Care Provider Active Start: January 01, [...] t: January 01, 2024 Dr. Saad Hoang , Other Provider Active St art: January 01, 2024 Dr. Cornelius Birch MD Other Provider Active Start: January 01, 2024 Dr. Landon Nelson , Other Provider Active Start: January 01, 2024 [...] t: January 01, 2024 Dr. Saad Hoang , DO Other Provider Active St art: January 01, 2024 Dr. Cornelius Birch MD Other Provider Active Start: January 01, 2024 Dr. Landon Nelson , Other Provider Active Start: January 01, 2024 [...] ORESTES Cano Primary Care Provider Active Start: January 02, [...] Team Status: Active Member Role Status Dates NIYAH CanoC Primary Care Provider Active Start: January 02, [...] tart: January 02, 2024 Dr. Atul Quezada , Other Provider Active Start : January 02, [...] ORESTES Cano Primary Care Provider Active Start: January 03, [...] Active Member Role Status Dates Rudy Boyer TRAUMA COORDINATOR-C Primary Care Provider Active Start: January 04, 2024 End: January 04, 2024 Dr. Martina Rendon MD Attending Provider Active Start: January 04, 2024 End: January 04, 2024 Dr. Paddy Walker MD Referring Provider Active St art: January 04, 2024 End: January 04, 2024 Team Status: Active Member Role Status Dates Rudy Boyer TRAUMA COORDINATOR-C Primary Care Provider Active Start: January 04, [...] Active Member Role Status Dates Rudy Boyer TRAUMA COORDINATOR-C Primary Care Provider Active Start: January 04, 2024 Dr. Christopher Huang DO Attending Provider Active Start: January 04, 2024 Dr. Zahra Palacio MD Referring Provider Active Start: January 04, 2024 Team Status: Active Member Role Status Dates Rudy Boyer TRAUMA COORDINATOR-C Primary Care Provider Active Start: January 05, [...] Inactive Member Role Status Dates Rudy Boyer TRAUMA COORDINATOR-C Primary Care Provider Active Start: January 25, 2024 End: January 25, 2024 Rudy Boyer TRAUMA COORDINATOR-C Referring Provider Active St art: January 25, 2024 End: January 25, 2024 Dr. Christopher Huang DO Attending Provider Active Start: January 25, 2024 End: January 25, 2024 Team Status: Inactive Member Role Status Dates Rudy Boyer TRAUMA COORDINATOR-C Primary Care Provider Active Start: February 13, [...] Active Member Role Status Dates Rudy Boyer TRAUMA COORDINATOR-C Primary Care Provider Active Start: February 13, 2024 Dr. Nico Arce MD Emergency Provider Active Start: February 13, 2024 Dr. Tamiko Quigely DO Admit Provider Active Start : February 13, 2024 Dr. Tamiko Quigley DO Attending Provider Active S tart: February 13, 2024 Dr. Tamiko Quigley DO Other Provider Active Start : February 13, 2024 Team Status: Active Member Role Status Dates Rudy Boyer TRAUMA COORDINATOR-C Primary Care Provider Active Start: February 14, [...] NP-C Primary Care Provider Active Start: February 14, [...] Cano Primary Care Provider Active Start: February 15, [...] Active Member Role Status Dates Rudy Boyer TRAUMA COORDINATOR-C Primary Care Provider Active Start: February 16, [...] Active Member Role Status Dates Rudy Boyer TRAUMA COORDINATOR-C Primary Care Provider Active Start: February 17, [...] Active Member Role Status Dates Rudy Boyer TRAUMA COORDINATOR-C Primary Care Provider Active Start: April 20, 2024 Dr. Joe Preston MD Emergency Provider Active S tart: April 20, 2024 Dr. Kanwal Aguliar MD Attending Provider Active Start: April 20, 2024 Team Status: Active Member Role Status Dates Rudy Boyer TRAUMA COORDINATOR-C Primary Care Provider Active Start: April 20, 2024 Dr. Joe Preston MD Emergency Provider Active S tart: April 20, 2024 Dr. Kanwal Aguilar MD Admit Provider Active St art: April 20, 2024 Dr. Kanwal Aguilar MD Attending Provider Active Start: April 20, 2024 Team Status: Inactive Member Role Status Dates Ruyd Boyer TRAUMA COORDINATOR-C Primary Care Provider Active Start: April 20, 2024 End: April 24, 2024 Dr. Joe Preston MD Emergency Provider Active S tart: April 20, 2024 End: April 24, 2024 Dr. Kanwal Aguilar MD Admit Provider Active St art: April 20, 2024 End: April 24, 2024 Dr. Kanwal Aguilar MD Other Provider Active St art: April 20, 2024 End: April 24, 2024 Dr. John Short , Attending Provider Active Start: April 20, 2024 End: April 24, 2024 Team Status: Active Member Role Status Dates Rudy Boyer NP-C Primary Care Provider Active Start: April 21, [...] art: April 21, 2024 Dr. Landon Nelson , Other Provider Active Start: April 21, 2024 Dr. Jean Arana MD Other Provider Active Star t: April 21, 2024 Dr. Gautam Robles MD Other Provider Active Sta rt: April 21, 2024 Dr. John Short , Other Provider Active S tart: April 21, 2024 Team Status: Active Member Role Status Dates Rudy Boyer TRAUMA COORDINATOR-C Primary Care Provider Active Start: April 21, 2024 Dr. Tiffanie Jimenez MD Attending Provider Activ e Start: April 21, 2024 Team Status: Active Member Role Status Dates Rudy Boyer TRAUMA COORDINATOR-C Primary Care Provider Active Start: April 21, [...] Active Member Role Status Dates Rudy Boyer TRAUMA COORDINATOR-C Primary Care Provider Active Start: April 22, [...] Active Member Role Status Dates Rudy Boyer TRAUMA COORDINATOR-C Primary Care Provider Active Start: April 23, [...] Boyer NP-C Primary Care Provider Active Start: April 24, 2024 Dr. Joe Preston MD Emergency Provider Active S tart: April 24, 2024 Dr. Kanwal Aguilar MD Admit Provider Active St art: April 24, 2024 Dr. Kanwal Aguilar MD Other Provider Active St art: April 24, 2024 Dr. John Shotr DO Attending Provider Active Start: April 24, 2024 Dr. John Short DO Other Provider Active S tart: April 24, 2024 Team Status: Active Member Role Status Dates Rudy Boyer NP-C Primary Care Provider Active Start: April 21, [...] NP-C Primary Care Provider Active Start: May 13, 2024 Adria Montenegro MD Emergency Provider Active Star t: May 13, 2024 Dr. Kanwal Aguilar MD Admit Provider Active St art: May 13, 2024 Dr. 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 Relationship Specialty Start Date End Date Cici Calderon MD PCP - General Family Medicine 04/24/13 [employer] Preserving Plant Laborer Relationship Specialty Start Date End Date Rudy Boyer NP [facility] [place] [address] PCP - General Family Medicine 06/20/24 Wood Preserving Plant Laborer Relationship Specialty Start Date End Date Rudy Boyer NP [address] [place] [id number] PCP - General Family Medicine 06/20/24 Team Status: Active Member Role/Relationship Status Dates Rudy Boyer TRAUMA COORDINATOR-C Primary Care Provider Active Team Status: Active Member Role/Relationship Status Dates Rudy Boyer TRAUMA COORDINATOR-C Primary Care Provider Active Start: May 13, 2024 Adria Montenegro MD Emergency Provider Active Star t: May 13, 2024 Dr. Kanwal Aguilar MD Admit Provider Active St art: May 13, 2024 Dr. Kanwal Aguilar MD Attending Provider Active Start: May 13, 2024 Dr. Kanwal Aguilar MD Other Provider Active St art: May 13, 2024 Team Status: Active Member Role/Relationship Status Dates Rudy oByer TRAUMA COORDINATOR-C Primary Care Provider Active Start: May 14, [...] May 14, 2024 Team Status: Inactive Member Role/Relationship Status Dates Rudy Boyer NP-C Primary Care Provider Active Start: May 14, [...] May 17, 2024 Team Status: Active Member Role/Relationship Status Dates Rudy Boyer NP-C Primary Care [...] May 15, 2024 Team Status: Active Member Role/Relationship Status Dates Rudy Boyer NP-C Primary Care Provider Active Start: May 16, 2024 Adria Montenegro MD Emergency Provider Active Star t: May 16, 2024 Dr. Kanwal Aguilar MD Admit Provider Active St art: May 16, 2024 Dr. Kanwal Aguilar MD Other Provider Active St art: May 16, 2024 Dr. Anuja Murcia MD Attending Provider Active Start: May 16, 2024 Dr. nAuja Murcia MD Other Provider Active Star t: May 16, 2024 Dr. Jameson Carrillo MD Other Provider Active Start: May 16, 2024 Team Status: Active Member Role/Relationship Status Dates Rudy Boyer NP-C Primary Care [...] Other Provider Active Start: May 17, 2024 Team Status: Inactive Member Role/Relationship Status Dates Rudy Boyer , TRAUMA COORDINATOR-C Primary Care Provider Active Start: May 17, 2024 End: May 18, 2024 Dr. Nico Arce MD Attending Provider Active Start: May 17, 2024 End: May 18, 2024 Dr. Nico Arce MD Referring Provider Active Start: May 17, 2024 End: May 18, 2024 Dr. Nico Arce MD Emergency Provider Active Start: May 17, 2024 End: May 18, 2024 Team Status: Inactive Member Role/Relationship Status Dates Rudyjody Boyer , TRAUMA COORDINATOR-C Primary Care Provider Active Start: May 19, 2024 End: May 19, 2024 Dr. Nicola Yadav DO Attending Provider Active Start: May 19, 2024 End: May 19, 2024 Dr. Nicola Yadav DO Emergency Provider Active Start: May 19, 2024 End: May 19, 2024 Team Status: Inactive Member Role/Relationship Status Dates Rudy Sharla , TRAUMA COORDINATOR-C Primary Care Provider Active Start: May 29, 2024 End: May 29, 2024 Rudy Boyer TRAUMA COORDINATOR-C Referring Provider Active St art: May 29, 2024 End: May 29, 2024 Dr. Christopher Huang DO Attending Provider Active Start: May 29, 2024 End: May 29, 2024 Team Status: Active Member Role/Relationship Status Dates Rudy Boyer TRAUMA COORDINATOR-C Primary Care Provider Active Start: September 01, 2024 Dr. Nico Arce MD Emergency Provider Active Start: September 01, 2024 Dr. Anuja Noel DO Admit Provider Active Start: September 01, 2024 Dr. Anuja Noel DO Attending Provider Active Start: September 01, 2024 Team Status: Inactive Member Role/Relationship Status Dates Rudy Boyer NP-Madelyn Primary Care Provider Active Start: September 01, 2024 End: September 05, 2024 Dr. Nico Arce MD Emergency Provider Active Start: September 01, 2024 End: September 05, 2024 Dr. Anuja Noel DO Admit Provider Active Start: September 01, 2024 End: September 05, 2024 Dr. Anuja Noel DO Other Provider Active Start: September 01, 2024 End: September 05, 2024 Dr. Jordana Hopkins MD Attending Provider Active Start: September 01, 2024 End: September 05, 2024 Dr. Prem Toro MD Other Provider Active Start: September 01, 2024 End: September 05, 2024 Dr. Varghese Atkinson MD Other Provider Active Start: September 01, 2024 Dr. Filemon Coffman MD Other Provider Active Star t: September 01, 2024 Dr. Atul Quezada DO Other Provider Active Start : September 01, 2024 Dr. Anuja Marcos MD Other Provider Active Sta rt: September 01, 2024 Dr. Dejuan Mendez MD Other Provider Active St art: September 01, 2024 Dr. Leonard Berumen MD Other Provider Active S tart: September 01, 2024 Dr. Prudence Florentino MD Other Provider Active Start: September 01, 2024 Dr. Harinder Delgado MD Other Provider Active Start : September 01, 2024 Dr. Yaw Clarke MD Other Provider Active Start: September 01, 2024 Dr. Marcos Aviles MD Other Provider Active Start : September 01, 2024 Dr. Zoila Pathak MD Other Provider Active Star t: September 01, 2024 Dr. Susie Fontenot MD Other Provider Active Sta rt: September 01, 2024 Dr. Briana Perez MD Other Provider Active Sta rt: September 01, 2024 Dr. Sy Palm MD Other Provider Active Star t: September 01, 2024 Dr. Dylon Foley MD Other Provider Active St art: September 01, 2024 Dr. Raji Akers MD Other Provider Active Star t: September 01, 2024 Dr. Saad Hoang DO Other Provider Active St art: September 01, 2024 Dr. Cornelius Birch MD Other Provider Active Start: September 01, 2024 Dr. Luisa Lancaster MD Other Provider Active St art: September 01, 2024 Dr. Landon Nelson DO Other Provider Active Start: September 01, 2024 Dr. Jean Arana MD Other Provider Active Star t: September 01, 2024 Dr. Gautam Robles MD Other Provider Active Sta rt: September 01, 2024 Team Status: Active Member Role/Relationship Status Dates Rudy Boyer , TRAUMA COORDINATOR-C Primary Care Provider Active Start: September 01, 2024 Dr. Nico Arce MD Emergency Provider Active Start: September 01, 2024 Dr. Anuja Noel DO Admit Provider Active Start: September 01, 2024 Dr. Anuja Noel DO Referring Provider Active Start: September 01, 2024 Dr. Anuja Noel DO Other Provider Active Start: September 01, 2024 Dr. Alden Finn MD Other Provider Active Start: September 01, 2024 Dr. Varghese Atkinson MD Other Provider Active Start: September 01, 2024 Dr. Filemon Coffman MD Other Provider Active Star t: September 01, 2024 Dr. Atul Quezada DO Attending Provider Active S tart: September 01, 2024 Dr. Atul Quezada DO Other Provider Active Start : September 01, 2024 Dr. Anuja Marcos MD Other Provider Active Sta rt: September 01, 2024 Dr. Dejuan Mendez MD Other Provider Active St art: September 01, 2024 Dr. Leonard Berumen MD Other Provider Active S tart: September 01, 2024 Dr. Prudence Florentino MD Other Provider Active Start: September 01, 2024 Dr. Harinder Delgado MD Other Provider Active Start : September 01, 2024 Dr. Yaw Clarke MD Other Provider Active Start: September 01, 2024 Dr. Marcos Aviles MD Other Provider Active Start : September 01, 2024 Dr. Zoila Pathak MD Other Provider Active Star t: September 01, 2024 Dr. Susie Fontenot MD Other Provider Active Sta rt: September 01, 2024 Dr. Briana Perez MD Other Provider Active Sta rt: September 01, 2024 Dr. Sy Palm MD Other Provider Active Star t: September 01, 2024 Dr. Dylon Foley MD Other Provider Active St art: September 01, 2024 Dr. Raji Akers MD Other Provider Active Star t: September 01, 2024 Dr. Saad Hoang , Other Provider Active St art: September 01, 2024 Dr. Cornelius Birch MD Other Provider Active Start: September 01, 2024 Dr. Luisa Lancaster MD Other Provider Active St art: September 01, 2024 Dr. Landon Nelson , Other Provider Active Start: September 01, 2024 Dr. Jean Arana MD Other Provider Active Star t: September 01, 2024 Dr. Gautam Robles MD Other Provider Active Sta rt: September 01, 2024 Dr. Jordana Hopkins MD Other Provider Active St art: September 01, 2024 Team Status: Active Member Role/Relationship Status Dates Rudy Boyer NP-C Primary Care Provider Active Start: September 02, 2024 Dr. Nico Arce MD Emergency Provider Active Start: September 02, 2024 Dr. Anuja Noel DO Admit Provider Active Start: September 02, 2024 Dr. Anuja Noel DO Other Provider Active Start: September 02, 2024 Dr. Jordana Hopkins MD Attending Provider Active Start: September 02, 2024 Dr. Jordana Hopkins MD Other Provider Active St art: September 02, 2024 Dr. Prem Toro MD Other Provider Active Start: September 02, 2024 Team Status: Active Member Role/Relationship Status Dates Rudy Boyer NP-C Primary Care Provider Active Start: September 03, 2024 Dr. Nico Arce MD Emergency Provider Active Start: September 03, 2024 Dr. Anuja Noel DO Admit Provider Active Start: September 03, 2024 Dr. Anuja Noel DO Other Provider Active Start: September 03, 2024 Dr. Jordana Hopkins MD Attending Provider Active Start: September 03, 2024 Dr. Jordana Hopkins MD Other Provider Active St art: September 03, 2024 Dr. Prem Toro MD Other Provider Active Start: September 03, 2024 Team Status: Active Member Role/Relationship Status Dates Rudy Boyer NP-C Primary Care Provider Active Start: September 04, 2024 Dr. Nico Arce MD Emergency Provider Active Start: September 04, 2024 Dr. Anuja Noel DO Admit Provider Active Start: September 04, 2024 Dr. Anuja Noel DO Other Provider Active Start: September 04, 2024 Dr. Jordana Hopkins MD Attending Provider Active Start: September 04, 2024 Dr. Jordana Hopkins MD Other Provider Active St art: September 04, 2024 Dr. Prem Toro MD Other Provider Active Start: September 04, 2024 Team Status: Active Member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
== END | disposition home or self-care (01) ==
PROVIDERS: PCP Nurse Practitioner Family; Referring Provider Nurse Practitioner Family; Visit Provider Nurse Practitioner Family
DX: M54.50 Low back pain, unspecified (principal); Z91.81 History of falling
CPT/HCPCS: 72110; 73521

== ENCOUNTER 2024-12-14 15:19 | Emergency (ER) | payer MEDICARE, MEDICAID, SELFPAY ==
[2024-12-14] VITALS (14 sets, daily range): BP systolic 117–155; BP diastolic 70–97; PULSE 77–109; RESP 12–28; TEMP 36.7–37.1; O2SAT 97–100
--- NOTE | 2024-12-14 15:32 | EKG12_ITS ---
Test Reason : CP
[2024-12-14 16:07] LABS: Hematocrit 41.5 % (37-47); Hemoglobin 14.0 g/dL (12.0-15.0); Immature Granulocytes Count 0.030 X10^3/uL (0.0-0.0); Mean Corp Hgb Conc 33.7 g/dL (32-36); Mean Corpuscular Volume 85.6 fL (81-99); Mean Platelet Vol. 9.3 fl (6.2-12.0); NRBC Flagged by Analyzer 0 % (0-5); Platelet Count 364 K/mm3 (150-450); RBC Distribution Width CV 13.8 % (11.6-14.6); RBC Distribution Width SD 43.1 fl (35.1-43.9); Red Blood Count 4.85 M/mm3 (4.2-5.4); White Blood Count 9.5 K/mm3 (4.4-11.0)
--- NOTE | 2024-12-14 16:20 | RAD_ITS ---
PROCEDURE: RAD/Chest 1 View (Portable)
[2024-12-14 16:24] LABS: Anion Gap 17 (5-15); BUN 14 mg/dL (4-19); BUN/Creat Ratio 16.5 RATIO (10-20); Calcium,Total 10.0 mg/dL (7.6-11.0); Carbon Dioxide 16.2 mmol/L (21.0-32.0); Chloride 107 mmol/L (98-108); Glucose 146 mg/dL (70-99); Potassium 3.5 mmol/L (3.3-5.1); Troponin T High Sensitivity 12 ng/L (<=14)
--- NOTE | 2024-12-14 16:24 | ED.VIS.CHEST ---
HPI History of Present Illness Chief Complaint: Chest Pain Informant: patient Onset/Context/Timing Onset: Today and Yesterday Activity at onset: gradual Timing: Continuous Quality: Positive for Aching Location: Substernal Current Severity: Mild Maximum Severity: Mild Worsened By: Nothing Relieved By: Nothing Associated Symptoms: Positive for Dyspnea and Palpitations; Negative for Nausea, Vomiting, Diaphoresis, Cough, Fever, Lightheadedness or Acid Reflux Narrative Narrative: 69-year-old female history of A-fib, hypertension and prior NH. Denies any history of DVT or PE. The last several days she feels like her heart is racing substernal chest discomfort. Mild dyspnea. She is on no blood thinner. She denies any recent travel or surgery she believes she was hospitalized at the end of October. Denies nausea, vomiting diarrhea. Denies fever or chills. No cough or hemoptysis. Prior Similar Symptoms: Yes and No CVD Risk Factors: Positive for Hypertension PE Risk Factors: Positive for Recent Immobilization; Negative for Recent Travel/Surgery, Prior DVT or PE, Cancer or OCP + Smoking + >/=35 TAD Risk Factors: Negative for Marfan's Syndrome [facility] Medical History Chronic anticoagulation Paroxysmal atrial fibrillation Erythrocytosis Transaminitis Hypercalcemia Frequent falls Acute cystitis without hematuria Septic encephalopathy Closed L3 vertebral fracture Acute UTI DURAN (acute kidney injury) Sepsis High anion gap metabolic acidosis Acute kidney injury Candidal intertrigo Acute UTI Recurrent falls Acute delirium Altered level of consciousness Acute encephalopathy Myocardial infarction type 2 Non-ST elevation NH (NSTEMI) Hiatal hernia Irritable bowel Back pain due to injury Restless legs Injury of head and neck High cholesterol Hearing loss, right Bipolar disorder Depression Anxiety GERD (gastroesophageal reflux disease) Former smoker Sleep apnea Atrial fibrillation Migraines Dementia Closed intertrochanteric fracture of left hip Psoriatic arthritis Nonobstructive atherosclerosis of coronary artery Obesity Type 2 diabetes mellitus Takotsubo syndrome Hyperlipidemia Essential (primary) hypertension NSTEMI (non-ST elevated myocardial infarction) (01/06/18) Home Medications ?Medication ?Instructions ?Recorded ?Last Taken ?Type apixaban 2.5 mg tablet (Eliquis) 2.5 mg PO BID blood thinner 02/14/24 Unknown History ergocalciferol (vitamin D2) 1,250 1,250 mcg PO SA vitamin 04/20/24 05/10/24 History mcg (50,000 unit) capsule (Vitamin D2) fexofenadine 180 mg tablet 180 mg PO DAILY allergies 04/20/24 Unknown History glipizide 10 mg tablet 10 mg PO DAILY diabetes 04/20/24 Unknown History atorvastatin 20 mg tablet 20 mg PO QHS cholesterol #0 tabs 04/24/24 05/12/24 Rx fluoxetine 40 mg capsule 40 mg PO BID #0 caps 04/24/24 Unknown Rx gabapentin 100 mg capsule 100 mg PO TID nerve pain #0 caps 04/24/24 Unknown Rx pantoprazole 40 mg tablet,delayed 40 mg PO BID reflux #0 tabs 04/24/24 Unknown Rx release tolterodine 4 mg capsule,extended 4 mg PO DAILY #0 caps 04/24/24 Unknown Rx release 24 hr acetaminophen 325 mg tablet 650 mg PO Q4H PRN Fever, pain 05/13/24 05/12/24 History -11/21 buspirone 15 mg tablet 15 mg PO BID mental health 05/13/24 Unknown History donepezil 10 mg tablet 10 mg PO DAILY memory 05/13/24 Unknown History mirabegron 50 mg tablet,extended 50 mg PO DAILY bladder 05/13/24 Unknown History release 24 hr Remove Patch 2 patch topical DAILY@2200 ##0 05/16/24 Unknown Rx aluminum-mag hydroxide-simethicone 30 ml PO Q6H PRN PRN Gastric 05/16/24 Unknown Rx 400 mg-400 mg-40 mg/5 mL oral susp Burning #0 mL (Mag-Al Plus Extra Strength) amlodipine 10 mg tablet 10 mg PO DAILY #60 tabs 05/16/24 Unknown Rx hydroxyzine pamoate 25 mg capsule 25 mg PO TID PRN PRN severe 05/16/24 Unknown Rx anxiety #0 caps lidocaine 5 % topical patch 2 patch topical DAILY #0 ea 05/16/24 Unknown Rx melatonin 3 mg tablet 3 mg PO QHS PRN PRN Insomnia #0 05/16/24 Unknown Rx tabs potassium chloride 20 mEq 20 meq PO BIDCM #0 tabs 05/16/24 Unknown Rx tablet,extended release(part/cryst) sennosides 8.6 mg-docusate sodium 2 tab PO BID PRN PRN Constipation 05/16/24 Unknown Rx 50 mg tablet (Stimulant Laxative #0 tabs Plus) tizanidine 2 mg tablet 2 mg PO Q8H PRN PRN muscle 05/16/24 Unknown Rx spasms/strain #0 tabs nitrofurantoin 1 cap PO Q12.TCU 05/19/24 Unknown History monohydrate/macrocrystals 100 mg capsule oxybutynin chloride 15 mg PO 05/19/24 Unknown History tablet,extended release 24 hr tramadol 50 mg tablet 50 mg PO Q6H PRN pain 3 days #12 05/19/24 Unknown Rx tabs sulfamethoxazole 800 1 tab PO BID #2 tabs 09/05/24 Unknown Rx mg-trimethoprim 160 mg tablet (Bactrim DS) carvedilol 6.25 mg tablet 6.25 mg PO BID #120 tabs 11/14/24 Unknown Rx losartan 25 mg tablet 25 mg PO BID #120 tabs 11/14/24 Unknown Rx Allergy/AdvReac Type Severity Reaction Status Date / Time morphine Allergy Severe Other Verified 12/14/24 15:29 codeine Allergy Itching Verified 12/14/24 15:29 fentanyl AdvReac confusion Verified 12/14/24 15:29 naproxen AdvReac Other Verified 12/14/24 15:29 Family History Mother Cancer skin Father Cancer prostate Surgical History History of back surgery History of carpal tunnel release of both wrists History of hysterectomy History of left heart catheterization (01/07/18) Social History household members: spouse Smoking Status: Former smoker how long ago did patient quit smokin years ago alcohol intake: never substance use type: does not use caffeine: Yes Type: carbonated beverages Number of servings: 1 ROS ROS ED ROS Narrative Chest pain. Shortness of breath. Heart rates. Constitutional Constitutional ED: Denies chills or fever(s) Eyes Eyes: Reports none ENT ENT ED: Denies ear pain Cardiovascular Cardiovascular: Reports chest pain, palpitations and racing heartbeat Respiratory/Chest Respiratory/Chest: Reports dyspnea; Denies cough Gastrointestinal Gastrointestinal: Denies abdominal pain, constipation, diarrhea, melena, nausea or vomiting Genitourinary Genitourinary ED: Denies dysuria or hematuria Musculoskeletal Musculoskeletal: Denies arthralgias or back pain Integumentary Denies abscess Neurologic Neurologic: Denies headache(s) or paresthesias Psychiatric Psychiatric: Reports anxiety Endocrine Endocrinology: Denies cold intolerance Hematologic/Lymphatic Hematologic/Lymphatic: Denies easy bleeding Allergic/Immunologic Allergic/Immunologic ED: Denies mouth swelling EXAM Physical Exam Narrative Exam Narrative: 69-year-old female sitting upright in bed vital signs are stable afebrile. Pulse ox 99% on room air no signs of hypoxia. Heart rate around 109. H EENT exam pupils round react light. Moist mutes membranes. Neck nontender no JVD. No lymphadenopathy. No thyromegaly. Back nontender. Lungs clear to auscultation bilaterally. Heart regular rhythm rate about 103 no murmur. Chest wall and ribs nontender. Abdomen soft nontender. Moving all 4 extremities. Calves are nontender without edema or cords. Dorsi plantarflexion intact. Normal radial pulses. Normal water superintendent strength. Neurologically she is awake alert. Answer questions following commands. Const Vital Signs: 12/14/24 15:29 12/14/24 15:32 12/14/24 16:31 Temperature 98.8 F Temperature Source Oral Pulse Rate 109 H 95 Respiratory Rate 24 H 27 H Respiratory Effort Respiratory Pattern Blood Pressure 117/73 155/74 H Blood Pressure Mean 87 101 Pulse Ox 99 99 Oxygen Delivery Method Room Air Room Air Nasal Cannula Oxygen Flow Rate (L/min) 2 12/14/24 17:05 12/14/24 17:08 12/14/24 17:15 Temperature Temperature Source Pulse Rate 77 100 Respiratory Rate 17 17 Respiratory Effort Normal Non-Labored Respiratory Pattern Normal Blood Pressure 143/78 H Blood Pressure Mean 98 Pulse Ox 99 100 Oxygen Delivery Method Oxygen Flow Rate (L/min) 12/14/24 17:30 12/14/24 17:45 12/14/24 18:00 Temperature Temperature Source Pulse Rate 92 98 Respiratory Rate 21 H 19 H Respiratory Effort Respiratory Pattern Blood Pressure 143/74 H 152/80 H 153/78 H Blood Pressure Mean 95 100 100 Pulse Ox 100 100 Oxygen Delivery Method Oxygen Flow Rate (L/min) 12/14/24 18:15 12/14/24 18:30 12/14/24 18:45 Temperature Temperature Source Pulse Rate 96 103 H 88 Respiratory Rate 28 H 19 H 18 Respiratory Effort Respiratory Pattern Blood Pressure 151/73 H 153/97 H 147/77 H Blood Pressure Mean 96 111 98 Pulse Ox 97 Oxygen Delivery Method Oxygen Flow Rate (L/min) 12/14/24 18:47 12/14/24 19:00 Temperature Temperature Source Pulse Rate 95 93 Respiratory Rate 28 H 21 H Respiratory Effort Respiratory Pattern Blood Pressure 137/70 H 139/79 H Blood Pressure Mean 92 98 Pulse Ox 97 97 Oxygen Delivery Method Oxygen Flow Rate (L/min) MDM MDM MDM Narrative Medical decision making narrative: 69-year-old complaining of palpitations and chest pain. No history of DVT or PE she was hospitalized at the end of October. Benign exam. She undergo a cardiac workup with a D-dimer. Repeat exam at 7:38 PM. Patient doing well. She said the Ativan helped her a lot. She is now calm and relaxed. I do think there is an anxiety component to this. We went over her test results. She is comfortable being discharged to home. History & Record Review Discussion w/independent historian: Patient Additional record(s) reviewed:: Prior inpatient record, Prior outpatient record, Prior ED visit and Prior labs Lab Data Attestation: I reviewed the patient's lab results. Lab results narrative: CBC shows a white count of 9 H&H 14 and 41. Platelets 364. Electrolytes show sodium 140. Gap 17. BUN and creatinine of 14 and 0.8. Glucose 146. Initial troponin is 12. 2-hour troponin 12 also. D-dimer 0.57. Age-adjusted is normal. Labs: Laboratory Results - last 24 hr 12/14/24 12/14/24 12/14/24 15:55 16:49 18:49 WBC 9.5 RBC 4.85 Hgb 14.0 Hct 41.5 MCV 85.6 MCH 28.9 MCHC 33.7 RDW Std Deviation 43.1 RDW Coeff of Gerhard 13.8 Plt Count 364 MPV 9.3 Immature Gran % (Auto) 0.300 Neut % (Auto) 66.0 Lymph % (Auto) 26.4 [place] % (Auto) 6.0 Eos % (Auto) 1.1 Baso % (Auto) 0.2 Absolute Neuts (auto) 6.3 Absolute Lymphs (auto) 2.51 Nucleated RBC % 0 D-Dimer Quant (PE/DVT) 0.57 H* Sodium 140 Potassium 3.5 Chloride 107 Carbon Dioxide 16.2 L Anion Gap 17 H BUN 14 Creatinine 0.87 Est GFR (MDRD) Non-Af 71 BUN/Creatinine Ratio 16.5 Glucose 146 H Calcium 10.0 Troponin T High Sens 12 D Troponin T Hi Sens 2 Hr 12 Radiography Chest X-Ray - ED: Read by ED Physician, Normal, Heart, Lungs, Mediastinum, Bony Structures, No Acute Disease and Chronic Changes Diagnostic Testing: Clinical Impression(s) from Imaging Studies Chest X-Ray 12/14/24 16:20 IMPRESSION: No acute process. Reading Location: [facility] Chest x-ray, portable, single view shows no acute abnormality. Normal cardiac silhouette. Normal lung [place]. No effusion. No cardiomegaly. No pneumonia. Rhythm Strip Rhythm Strip: Sinus Tach Rate: 103 Ectopy: None EKG Initial EKG: Attestation: I personally reviewed and interpreted this EKG as follows: Interpretation: Sinus Tachycardia Comments: Sinus tachycardia rate of 103 no acute signs of NH or ischemia. No [id number]. Discharge Plan Triage Chief Complaint: Chest Pain Other Complaint: General Illness ED Provider: Joe Preston Dx/Rx/DC Orders Clinical Impression: Heart palpitations, Atypical chest pain, Anxiety, History of diabetes mellitus, History of atrial fibrillation Instructions: ED Anxiety Reaction, ED Chest Pain, Uncertain Cause Prescriptions: No Action carvedilol 6.25 mg tablet 6.25 mg PO BID Qty: 120 0RF Rx Instructions: must administer with a meal/food losartan 25 mg tablet 25 mg PO BID Qty: 120 0RF Eliquis 2.5 mg tablet 2.5 mg PO BID glipizide 10 mg tablet 10 mg PO DAILY fexofenadine 180 mg tablet 180 mg PO DAILY ergocalciferol (vitamin D2) [Vitamin D2] 1,250 mcg (50,000 unit) capsule 1,250 mcg PO SA Rx Instructions: TAKES EVERY WEEK ON SUNDAY AT BEDTIME fluoxetine 40 mg Capsule 40 mg PO BID Qty: 0 0RF atorvastatin 20 mg Tablet 20 mg PO QHS Qty: 0 0RF tolterodine 4 mg Capsule,Extended Release 24hr 4 mg PO DAILY Qty: 0 0RF pantoprazole 40 mg Tablet,Delayed Release (Dr/Ec) 40 mg PO BID Qty: 0 0RF gabapentin 100 mg Capsule 100 mg PO TID Qty: 0 0RF donepezil 10 mg tablet 10 mg PO DAILY buspirone 15 mg tablet 15 mg PO BID mirabegron 50 mg tablet extended release 24 hr 50 mg PO DAILY acetaminophen 325 mg Tablet 650 mg PO Q4H PRN (Reason: Fever, pain 1-11/21) lidocaine 5 % Adhesive Patch,Medicated 2 patch topical DAILY Qty: 0 0RF Protocol: *Topical Application Instructions APPLICATION INSTRUCTIONS: back, s/p fall tizanidine 2 mg Tablet 2 mg PO Q8H PRN PRN (Reason: muscle spasms/strain) Qty: 0 0RF sennosides-docusate sodium [Stimulant Laxative Plus] 8.6-50 mg Tablet 2 tab PO BID PRN PRN (Reason: Constipation) Qty: 0 0RF melatonin 3 mg Tablet 3 mg PO QHS PRN PRN (Reason: Insomnia) Qty: 0 0RF potassium chloride 20 mEq Tablet,Er Particles/Crystals 20 meq PO BIDCM Qty: 0 0RF alum-mag hydroxide-simeth [Mag-Al Plus Extra Strength] 400-400-40 mg/5 mL Suspension 30 ml PO Q6H PRN PRN (Reason: Gastric Burning) Qty: 0 0RF hydroxyzine pamoate 25 mg Capsule 25 mg PO TID PRN PRN (Reason: severe anxiety) Qty: 0 0RF Remove Patch 2 patch topical DAILY@2200 Qty: 0 0RF amlodipine 10 mg tablet 10 mg PO DAILY Qty: 60 0RF oxybutynin chloride 15 mg tablet extended release 24hr PO nitrofurantoin monohyd/m-cryst 100 mg capsule 1 cap PO Q12.TCU tramadol 50 mg tablet 50 mg PO Q6H PRN (Reason: pain) 3 Days Qty: 12 0RF sulfamethoxazole-trimethoprim [Bactrim DS] 800-160 mg tablet 1 tab PO BID Qty: 2 0RF Primary Care Provider: Rupal Boyer Referrals: Rupal Boyer NP-C [Primary Care Provider, Family Practice] - As soon as possible Activity Restrictions/Additional Instructions: your Tests look good tonight. This may be secondary to anxiety. Follow-up with your primary care provider. Print Language: Malawian Disposition Disposition: Home, Self Care
--- NOTE | 2024-12-14 17:08 | ED.RN ---
pt desats to 83% on room air. 2L nasal cannula applied. Dr. enriquez made aware.
[2024-12-14 17:15] LABS: D-Dimer Quantitative (DVT/PE) 0.57 FEU/ug/m (0.27-0.49)
[2024-12-14 19:13] LABS: Troponin T High Sens 2 HR 12 ng/L (<=14)
== END 2024-12-14 20:44 | disposition home or self-care (01) ==
PROVIDERS: Emergency Provider Emergency Medicine; PCP Nurse Practitioner Family; Visit Provider Emergency Medicine
DX: R00.2 Palpitations (principal); I48.0 Paroxysmal atrial fibrillation; E11.9 Type 2 diabetes mellitus without complications; I25.2 Old myocardial infarction; I10 Essential (primary) hypertension; I25.10 Atherosclerotic heart disease of native coronary artery without angina pectoris; R07.89 Other chest pain; Z87.891 Personal history of nicotine dependence; F41.9 Anxiety disorder, unspecified; E78.00 Pure hypercholesterolemia, unspecified; K21.9 Gastro-esophageal reflux disease without esophagitis
CPT/HCPCS: 71045; 80048; 84484; 85025; 85379; 93005; 99285; A4216